=== PATIENT | male | born 1940 | race Caucasian/White ===

== ENCOUNTER 2023-02-28 14:17 | Inpatient (IN) | payer MEDICARE, OTHER, SELFPAY ==
[2023-02-28] VITALS (62 sets, daily range): BP systolic 80–180; BP diastolic 50–112; PULSE 54–98; RESP 5–49; TEMP 36.6–37; O2SAT 83–100; BMI 27.4; BMI 25.7
--- NOTE | 2023-02-28 14:22 | ECG_ITS ---
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
--- NOTE | 2023-02-28 14:35 | ED.SOB1 ---
Documented by User: MIRNA Faulkner 02/28/23 17:12 HPI - SOB/Dyspnea General Chief Complaint: Shortness of Breath/Dyspnea Stated Complaint: RESP DISTRESS Time Seen by Provider: 02/28/23 14:21 Source: patient Mode of arrival: ambulance History of Present Illness HPI Narrative: patient is an 82-year-old male who presents to the emergency department for the evaluation of increasing shortness of breath over the last several days. Patient has a history of chronic obstructive pulmonary disease. On EMS arrival to the home today, patient's face and hands were blue, he was sixty-five percent on room air. He denies chest pain, he has had no fevers or vomiting. He denies peripheral edema. He does not wear home oxygen and EMS states he refuses CPAP. Nonrebreather was applied by EMS and the patient was brought to the Emergency Room with improved oxygen saturation Related Data Home Medications Medication Instructions Recorded Confirmed lisinopril 40 mg tablet 40 mg PO DAILY 02/28/23 02/28/23 metoprolol succinate 25 mg 25 mg PO DAILY 02/28/23 02/28/23 tablet,extended release 24 hr Allergies Allergy/AdvReac Type Severity Reaction Status Date / Time No Known Drug Allergies Allergy Verified 02/28/23 14:41 Review of Systems ROS Constitutional Denies: fever or chills Ears, nose, mouth, and throat Denies: throat pain Cardiovascular Denies: chest pain Respiratory Reports: shortness of breath and cough Gastrointestinal Denies: nausea or vomiting Musculoskeletal Denies: back pain Integumentary/Breast Denies: rash Allergic/Immunologic Denies: hives [facility] Medical History (Updated 02/28/23 @ 22:14 by Coy Cantu MD) Social History Smoking status: Current every day smoker Exam Narrative Exam Narrative: Gen.: Awake, alert, moderate respiratory distress Head: Normocephalic, atraumatic ENT: Moist mucous membranes Respiratory: moderate respiratory distress with decreased lung sounds and expiratory wheezing globally Cardio: Regular rate and rhythm Gastrointestinal: Abdomen is soft, nondistended and nontender to palpation Extremities: Moves extremities equally, no peripheral edema Psych: Normal mood and affect Neuro: No focal neuro deficit Skin: Warm, dry, intact Constitutional Vital Signs - 24 hr 02/28/23 14:11 02/28/23 14:38 02/28/23 14:40 Temperature 97.8 F Pulse Rate 86 Pulse Rate [Monitor] 97 H Respiratory Rate 42 H 40 H Blood Pressure Blood Pressure [Left Arm] 167/103 H Pulse Oximetry 94 L 98 Oxygen Delivery Method Nasal Cannula Nasal Cannula Oxygen Delivery Flow Rate 4 4 Fraction of Inspired Oxygen 02/28/23 14:10 02/28/23 14:11 02/28/23 14:12 Temperature Pulse Rate 91 H Pulse Rate [Monitor] Respiratory Rate 39 H 49 H Blood Pressure 180/103 H Blood Pressure [Left Arm] Pulse Oximetry 98 97 96 Oxygen Delivery Method Oxygen Delivery Flow Rate Fraction of Inspired Oxygen 02/28/23 14:13 02/28/23 14:15 02/28/23 16:26 Temperature Pulse Rate 78 88 Pulse Rate [Monitor] Respiratory Rate 32 H 36 H Blood Pressure 167/103 H 155/95 H Blood Pressure [Left Arm] Pulse Oximetry 93 L 96 Oxygen Delivery Method Vapotherm Oxygen Delivery Flow Rate 40 Fraction of Inspired Oxygen 60 02/28/23 14:15 02/28/23 16:32 02/28/23 17:26 Temperature Pulse Rate 88 94 H 90 Pulse Rate [Monitor] Respiratory Rate 31 H 19 23 Blood Pressure 155/95 H 144/112 H 156/96 H Blood Pressure [Left Arm] Pulse Oximetry 97 95 92 L Oxygen Delivery Method Oxygen Delivery Flow Rate Fraction of Inspired Oxygen 02/28/23 17:31 Temperature Pulse Rate 95 H Pulse Rate [Monitor] Respiratory Rate 24 Blood Pressure 160/100 H Blood Pressure [Left Arm] Pulse Oximetry 91 L Oxygen Delivery Method Oxygen Delivery Flow Rate Fraction of Inspired Oxygen Course Vital Signs Vital signs: Vital Signs Pulse Oximetry 98 02/28/23 14:10 Temperature 98 F 02/28/23 23:07 Pulse Rate 56 L 02/28/23 23:07 Respiratory Rate 24 02/28/23 19:43 Blood Pressure 87/53 L 02/28/23 23:07 Pulse Oximetry 98 02/28/23 23:07 Oxygen Delivery Method Mechanical Ventilator 02/28/23 23:07 Oxygen Delivery Flow Rate 40 02/28/23 19:38 Fraction of Inspired Oxygen 40 02/28/23 20:25 MDM - SOB/Dyspnea MDM Narrative Medical decision making narrative: patient was switched from nonrebreather from EMS to oxygen by nasal cannula in the Emergency Room, he had improvement of oxygen saturation although he did remain borderline hypoxic. Pulse oximetry with poor waveform, he was switched to an ear probe. Lab studies show hyponatremia, low chloride, elevated troponin and elevated BNP. Patient with stable creatinine, unremarkable chest x-ray. He has no complaints of chest pain, no EKG changes. I discussed the case with Dr. Paulino, troponin and sodium levels were repeated and troponin has increased only slightly, no change in sodium. Patient given gentle IV fluids and admitted for further evaluation and treatment to ICU for acute respiratory distress, chronic obstructive pulmonary disease exacerbation and hypoxemia. He was placed on Vapotherm prior to admission for comfort. He is resting comfortably with significantly improved respiratory status at time of admission. Patient reevaluated by attending physician prior to admission. Medical Records Attestation: I reviewed the patient's medical records. Lab Data Attestation: I reviewed the patient's lab results. Labs: Lab Results 02/28/23 02/28/23 02/28/23 Range/Units 13:32 14:15 16:20 WBC 7.3 (4.0-11.0) 10^3/uL RBC 5.23 (4.70-6.10) 10^6/uL Hgb 17.0 (14.0-18.0) g/dL Hct 50.3 (42.0-54.0) % MCV 96.2 H (80.0-94.0) fL MCH 32.5 (25.9-34.0) pg MCHC 33.8 (29.9-35.2) g/dL RDW 12.1 (11.0-15.0) % Plt Count 186 (150-450) 10^3/uL MPV 8.6 L (9.5-13.5) fL Seg Neuts % (Manual) 91.0 Lymphocytes % (Manual) 5.0 L (20.5-60.0) % Monocytes % (Manual) 4.0 (1.7-12.0) % Eosinophils % (Manual) 0.0 L (0.9-7.0) % Basophils % (Manual) 0.0 L (0.2-2.0) % Neutrophils # (Manual) 6.64 H (1.4-6.5) 10^3/uL Lymphocytes # (Manual) 0.36 L (1.20-3.80) 10^3/uL Monocytes # (Manual) 0.29 L (0.30-0.80) 10^3/uL Eosinophils # (Manual) 0.00 (0.00-0.70) 10^3/uL Basophils # (Manual) 0.00 (0.00-0.10) 10^3/uL PT 10.9 (9.0-11.6) sec INR 1.03 APTT 35.6 (22.3-36.2) sec Sodium 112 L* 111 L* (136-145) mmol/L Potassium 5.6 H (3.5-5.1) mmol/L Chloride 77 L* (98-107) mmol/L Carbon Dioxide 32.3 H (21.0-32.0) mmol/L Anion Gap 8.3 BUN 24.0 H (7.0-18.0) mg/dL Creatinine 1.23 (0.70-1.30) mg/dL Est GFR ( Amer) >60 (>=60) Est GFR (Non-Af Amer) 56 L (>=60) BUN/Creatinine Ratio 19.5 Glucose 111 H (74-106) mg/dL Calcium 8.6 (8.5-10.1) mg/dL Total Bilirubin 0.6 (0.2-1.0) mg/dL AST 46 H (15-37) U/L ALT 53 (16-63) U/L Alkaline Phosphatase 94 (46-116) U/L Troponin I High Sens 162.7 H* 172.7 H* (4.0-76.1) pg/mL NT-Pro-B Natriuret Pep 5785.0 H* (<=1800.0) pg/mL Total Protein 7.0 (6.4-8.2) g/dL Albumin 3.6 (3.4-5.0) g/dL Globulin 3.4 g/dL Albumin/Globulin Ratio 1.1 SARS-CoV-2 (PCR) Negative (NEGATIVE) Imaging Data Chest x-ray: Attestation: I have reviewed the pertinent imaging results. ECG Data Attestation: I personally reviewed and interpreted this ECG as follows: (normal sinus rhythm at a rate of ninety-one, incomplete right bundle-branch block, no acute ST elevation. Artifact noted. EKG reviewed by attending physician.) Discharge Plan Discharge Chief Complaint: Shortness of Breath/Dyspnea Clinical Impression: Elevated troponin, Hypoxia, Acute respiratory distress, COPD exacerbation Patient Disposition: Admitted As Inpatient Time of Disposition Decision: 17:09 Condition: Fair Documented by User: Rodrigo Zhao MD 02/28/23 23:11 HPI - SOB/Dyspnea General Chief Complaint: Shortness of Breath/Dyspnea Stated Complaint: RESP DISTRESS Time Seen by Provider: 02/28/23 14:21 Related Data Home Medications Medication Instructions Recorded Confirmed lisinopril 40 mg tablet 40 mg PO DAILY 02/28/23 02/28/23 metoprolol succinate 25 mg 25 mg PO DAILY 02/28/23 02/28/23 tablet,extended release 24 hr Allergies Allergy/AdvReac Type Severity Reaction Status Date / Time No Known Drug Allergies Allergy Verified 02/28/23 14:41 [facility] Medical History (Updated 02/28/23 @ 22:14 by Coy Cantu MD) Social History Smoking status: Current every day smoker Exam Constitutional Vital Signs - 24 hr 02/28/23 14:11 02/28/23 14:38 02/28/23 14:40 Temperature 97.8 F Pulse Rate 86 Pulse Rate [Monitor] 97 H Respiratory Rate 42 H 40 H Blood Pressure Blood Pressure [Left Arm] 167/103 H Pulse Oximetry 94 L 98 Oxygen Delivery Method Nasal Cannula Nasal Cannula Oxygen Delivery Flow Rate 4 4 Fraction of Inspired Oxygen 02/28/23 14:10 02/28/23 14:11 02/28/23 14:12 Temperature Pulse Rate 91 H Pulse Rate [Monitor] Respiratory Rate 39 H 49 H Blood Pressure 180/103 H Blood Pressure [Left Arm] Pulse Oximetry 98 97 96 Oxygen Delivery Method Oxygen Delivery Flow Rate Fraction of Inspired Oxygen 02/28/23 14:13 02/28/23 14:15 02/28/23 16:26 Temperature Pulse Rate 78 88 Pulse Rate [Monitor] Respiratory Rate 32 H 36 H Blood Pressure 167/103 H 155/95 H Blood Pressure [Left Arm] Pulse Oximetry 93 L 96 Oxygen Delivery Method Vapotherm Oxygen Delivery Flow Rate 40 Fraction of Inspired Oxygen 60 02/28/23 14:15 02/28/23 16:32 02/28/23 17:26 Temperature Pulse Rate 88 94 H 90 Pulse Rate [Monitor] Respiratory Rate 31 H 19 23 Blood Pressure 155/95 H 144/112 H 156/96 H Blood Pressure [Left Arm] Pulse Oximetry 97 95 92 L Oxygen Delivery Method Oxygen Delivery Flow Rate Fraction of Inspired Oxygen 02/28/23 17:31 Temperature Pulse Rate 95 H Pulse Rate [Monitor] Respiratory Rate 24 Blood Pressure 160/100 H Blood Pressure [Left Arm] Pulse Oximetry 91 L Oxygen Delivery Method Oxygen Delivery Flow Rate Fraction of Inspired Oxygen Course Vital Signs Vital signs: Vital Signs Pulse Oximetry 98 02/28/23 14:10 Temperature 98 F 02/28/23 23:07 Pulse Rate 56 L 02/28/23 23:07 Respiratory Rate 24 02/28/23 19:43 Blood Pressure 87/53 L 02/28/23 23:07 Pulse Oximetry 98 02/28/23 23:07 Oxygen Delivery Method Mechanical Ventilator 02/28/23 23:07 Oxygen Delivery Flow Rate 40 02/28/23 19:38 Fraction of Inspired Oxygen 40 02/28/23 20:25 MDM - SOB/Dyspnea Lab Data Labs: Lab Results 02/28/23 02/28/23 02/28/23 Range/Units 13:32 14:15 16:20 WBC 7.3 (4.0-11.0) 10^3/uL RBC 5.23 (4.70-6.10) 10^6/uL Hgb 17.0 (14.0-18.0) g/dL Hct 50.3 (42.0-54.0) % MCV 96.2 H (80.0-94.0) fL MCH 32.5 (25.9-34.0) pg MCHC 33.8 (29.9-35.2) g/dL RDW 12.1 (11.0-15.0) % Plt Count 186 (150-450) 10^3/uL MPV 8.6 L (9.5-13.5) fL Seg Neuts % (Manual) 91.0 Lymphocytes % (Manual) 5.0 L (20.5-60.0) % Monocytes % (Manual) 4.0 (1.7-12.0) % Eosinophils % (Manual) 0.0 L (0.9-7.0) % Basophils % (Manual) 0.0 L (0.2-2.0) % Neutrophils # (Manual) 6.64 H (1.4-6.5) 10^3/uL Lymphocytes # (Manual) 0.36 L (1.20-3.80) 10^3/uL Monocytes # (Manual) 0.29 L (0.30-0.80) 10^3/uL Eosinophils # (Manual) 0.00 (0.00-0.70) 10^3/uL Basophils # (Manual) 0.00 (0.00-0.10) 10^3/uL PT 10.9 (9.0-11.6) sec INR 1.03 APTT 35.6 (22.3-36.2) sec Sodium 112 L* 111 L* (136-145) mmol/L Potassium 5.6 H (3.5-5.1) mmol/L Chloride 77 L* (98-107) mmol/L Carbon Dioxide 32.3 H (21.0-32.0) mmol/L Anion Gap 8.3 BUN 24.0 H (7.0-18.0) mg/dL Creatinine 1.23 (0.70-1.30) mg/dL Est GFR ( Amer) >60 (>=60) Est GFR (Non-Af Amer) 56 L (>=60) BUN/Creatinine Ratio 19.5 Glucose 111 H (74-106) mg/dL Calcium 8.6 (8.5-10.1) mg/dL Total Bilirubin 0.6 (0.2-1.0) mg/dL AST 46 H (15-37) U/L ALT 53 (16-63) U/L Alkaline Phosphatase 94 (46-116) U/L Troponin I High Sens 162.7 H* 172.7 H* (4.0-76.1) pg/mL NT-Pro-B Natriuret Pep 5785.0 H* (<=1800.0) pg/mL Total Protein 7.0 (6.4-8.2) g/dL Albumin 3.6 (3.4-5.0) g/dL Globulin 3.4 g/dL Albumin/Globulin Ratio 1.1 SARS-CoV-2 (PCR) Negative (NEGATIVE) Discharge Plan Discharge Chief Complaint: Shortness of Breath/Dyspnea Clinical Impression: Elevated troponin, Hypoxia, Acute respiratory distress, COPD exacerbation Patient Disposition: Admitted As Inpatient Time of Disposition Decision: 17:09 Condition: Fair Procedures ED Procedure Instructions Procedures Procedures: contacted by hospitalist Dr Cantu to intubate patient . Patient in the ICU and is now unresponsive. Patient has bipap in place . patient has a gag reflex. given Ativan 1mg and Etomindate 15 mg IVP. Successful intubation on 2nd attempt with 7.5 ET tube. After I removed the blade I noticed blood in his mouth and realized he was biting his tongue and lip. Bite block placed by RT. Tube secured. xray confirms tube placement.
[2023-02-28] MEDS: IPRATROPIUM/ALBUTEROL SULFATE 3 ML AMPUL.NEB IH ×2 (14:38→22:15)
[2023-02-28] MEDS: ALBUTEROL SULFATE 2.5 MG/3 ML VIAL NEB (14:38)
--- NOTE | 2023-02-28 14:45 | XR_ITS ---
[address] [address] Patient Name: ELIDA JERONIMO MRN: [id number] date: 1940 Sex: M Assigned Patient Location: ED.MAIN Current Patient Location: ED.MAIN Accession/Order Number: [id number] Exam Date: 02/28/2023 14:40 Report Date: 02/28/2023 15:11 At the request of: JUMA SHEEHAN Procedure: XR chest 1V EXAMINATION: XR chest 1V HISTORY: Shortness of breath COMPARISON: Chest x-rays 10/22/2022 TECHNIQUE: Portable chest FINDINGS: The lung parenchyma is free of consolidation or infiltrate. No pneumothorax or pleural effusion. The cardiac, mediastinal and hilar contours are normal. The visualized osseous structures exhibit no gross abnormality. IMPRESSION: No acute cardiopulmonary abnormality. Electronically authenticated by: BRIAN JAMIL Date: 02/28/2023 15:11
[2023-02-28] MEDS: METHYLPREDNISOLONE SOD SUCC PF 125 MG/2 ML VIAL IVP (14:53)
[2023-02-28 14:57] LABS: Hematocrit 50.3 % (42.0-54.0); Mean Corpuscular HGB Conc 33.8 g/dL (29.9-35.2); Mean Corpuscular Hemoglobin 32.5 pg (25.9-34.0); Mean Corpuscular Volume 96.2 fL (80.0-94.0); Mean Platelet Volume 8.6 fL (9.5-13.5); Platelet Count 186 10^3/uL (150-450); Red Blood Count 5.23 10^6/uL (4.70-6.10); Red Cell Distribution Width 12.1 % (11.0-15.0); White Blood Count 7.3 10^3/uL (4.0-11.0)
[2023-02-28 15:19] LABS: Alanine Aminotransferase 53 U/L (16-63); Albumin Globulin Ratio 1.1; Albumin Level 3.6 g/dL (3.4-5.0); Alkaline Phosphatase 94 U/L (46-116); Anion Gap 8.3; Aspartate Amino Transferase 46 U/L (15-37); BUN Creatinine Ratio 19.5; Bilirubin Total 0.6 mg/dL (0.2-1.0); Calcium 8.6 mg/dL (8.5-10.1); Carbon Dioxide 32.3 mmol/L (21.0-32.0); Estimated GFR (African America >60 (>=60); Estimated GFR (Non-African Ame 56 (>=60); Globulin 3.4 g/dL; Glucose 111 mg/dL (74-106); Potassium 5.6 mmol/L (3.5-5.1)
[2023-02-28 15:21] LABS: INR 1.03; Partial Thromboplastin Time 35.6 sec (22.3-36.2); Prothrombin Time 10.9 sec (9.0-11.6)
[2023-02-28 15:23] LABS: Chloride 77 mmol/L (98-107); Sodium 112 mmol/L (136-145); Troponin I High Sensitivity 162.7 pg/mL (4.0-76.1)
[2023-02-28 15:26] LABS: Lymphocytes Absolute Manual 0.36 10^3/uL (1.20-3.80); Monocytes Absolute Manual 0.29 10^3/uL (0.30-0.80); Segmented Neut Absolute Manual 6.64 10^3/uL (1.4-6.5)
[2023-02-28 15:33] LABS: SARS-CoV-2 Ag NEGATIVE (NEGATIVE)
[2023-02-28] MEDS: 0.9 % SODIUM CHLORIDE 1,000 ML 500 ML IV ×2 (15:42→20:11)
--- NOTE | 2023-02-28 16:29 | RESP.RT ---
Vapotherm s/u due to pt 81-87% on 4 lpm NC
[2023-02-28 16:56] LABS: Sodium 111 mmol/L (136-145); Troponin I High Sensitivity 172.7 pg/mL (4.0-76.1)
--- NOTE | 2023-02-28 17:14 | CA_ITS ---
Patient: ELIDA JERONIMO Exam Date: 03/03/2023 : 1940 Gender:M Ordering : SHAIKH Spring OWENS . Admission #: [id number] Family : DR Daren Arce . Order #: [id number] CLICK HERE TO VIEW EXAM ECHOCARDIOGRAM REPORT PROCEDURE: CA ECHO DOPPLER COMPLETE INDICATIONS: SOB, Respiratory failure COMPARISON: None. DESCRIPTION: COMPLETE ECHOCARDIOGRAM Real-time transthoracic echocardiography with 2D, M-mode, spectral and color flow Doppler performed. QUALITY: Technical quality was adequate. LEFT VENTRICLE: Normal chamber size. Borderline left ventricular hypertrophy. LV EF: Global left ventricular systolic function is normal. Calculated left ventricular ejection fraction is 61% DIASTOLIC: Grade I diastolic dysfunction. ATRIAL SEPTUM: Inadequately seen. LEFT ATRIUM: Normal chamber size. RIGHT ATRIUM: Moderate dilatation. RIGHT VENTRICLE: Mild dilatation. Right ventricular systolic function appears reduced. TRICUSPID VALVE: Normal mobility and thickness. No stenosis with mild regurgitation. Severe pulmonary hypertension. RVSP 62mmHg MITRAL VALVE: Normal mobility and thickness. No evidence of mitral valve stenosis. There is no mitral annular calcification. Trivial mitral regurgitation. AORTIC VALVE: Grossly normal. Normal leaflet mobility. No evidence of aortic valve stenosis. No aortic regurgitation. AORTIC ROOT: Normal diameter and appearance. PULMONIC VALVE: Normal thickness and mobility. No stenosis. No regurgitation. PERICARDIUM: No evidence of pericardial effusion. IVC: Collapses with inspirations. Normal size. CONCLUSION: 1. Global left ventricular systolic function is normal; visually estimated ejection fraction 60 to 65%. 2. The right ventricle is mildly dilated with reduced systolic function. 3. The right atrium is moderately dilated. 4. Mild diastolic dysfunction. 5. Mild tricuspid regurgitation. 6. Severe pulmonary hypertension; RVSP 62 mmHg. Adult Echocardiography Procedure Report Left Ventricle LVEDD (3.7 - 5.6 cm): 4.17 cm LVESD (2.2 - 4.0 cm): 3.01 cm LVIVS thickness (0.6 - 1.2 cm): 1.06 cm LVPW thickness (0.5 - 1.0 cm): 1.03 cm LVOT Max Gradient: 7.28 mm[Hg], 6.78 mm[Hg] LVOT Area (cm2): 1.33 m/s Peak Velocity (LVOT): 1.35 m/s, 1.30 m/s Mean Velocity (LVOT): 1.01 m/s LVOT Diameter 2.54 cm Left Ventricular Ejection Fraction: 60.87 % Left Atrium LA Volume Index (2D A2C): 31.94 ml/m2 Left Atrium Systolic Dimension: 3.97 cm Mitral Valve MV E to A Ratio: 0.52 Mitral Valve A-Wave Peak Velocity: 1.44 m/s Mitral Valve E-Wave Peak Velocity: 0.75 m/s Right Ventricle RV Internal Diastolic Dimension: 4.04 cm Aorta AO Root Diam: 2.58 cm Ascending Ao Diam: 3.07 cm Aortic Valve AoV Area (Peak Ang): 4.24 cm2, 4.32 cm2 AoV Area (VTI): 3.61 cm2, 3.66 cm2 Peak Velocity(Antegrade Flow): 1.58 m/s Peak Gradient(Antegrade Flow): 9.98 mm[Hg] Mean Velocity(Antegrade Flow): 1.13 m/s Mean Gradient(Antegrade Flow): 5.69 mm[Hg] Velocity Time Integral: 31.48 cm Tricuspid Valve Peak Velocity (Regurgitant Flow): 1.62 m/s, 1.50 m/s, 3.83 m/s Pulmonic Valve Peak Velocity: 1.07 m/s Peak Gradient: 5.38 mm[Hg], 3.84 mm[Hg] Right Atrium Right Atrium Systolic Pressure: 108.16 ml, 108.16 ml Dictated by: Janet Bailon M.D. on 03/06/2023 at 12:52 Approved by: Janet Bailon M.D. on 03/06/2023 at 12:56
[2023-02-28 19:42] LABS: Allen Test POSITIVE (POSITIVE); Base Excess ABG 5.5 mmol/L (-2.0-2.0); Fractionated Inspired Oxygen 60 %; HCO3 ABG 32.9 mmol/L (22.0-26.0); Liters per Minute 40; Oxygen Saturation ABG 95.7 %; PO2 ABG 90.6 mmHg (80.0-100.0)
[2023-02-28 19:43] LABS: O2 Mode VAPOTHERM; Puncture Site R RADIAL
[2023-02-28 19:44] LABS: ABG PCO2 77.3 mmHg (35.0-45.0); pH ABG 7.238 (7.350-7.450)
[2023-02-28 19:55] LABS: Anion Gap 6.7; BUN Creatinine Ratio 22.7; Calcium 8.4 mg/dL (8.5-10.1); Carbon Dioxide 31.6 mmol/L (21.0-32.0); Estimated GFR (African America >60 (>=60); Estimated GFR (Non-African Ame >60 (>=60); Glucose 117 mg/dL (74-106); Potassium 5.3 mmol/L (3.5-5.1); Thyroid Stimulating Hormone 0.668 uIU/mL (0.358-3.740)
[2023-02-28 20:00] LABS: Chloride 81 mmol/L (98-107); Sodium 114 mmol/L (136-145); Troponin I High Sensitivity 244.9 pg/mL (4.0-76.1)
[2023-02-28] MEDS: 0.9 % SODIUM CHLORIDE 1,000 ML 100 ML IV (20:11)
[2023-02-28] MEDS: CEFTRIAXONE 1,000 MG in 0.9 % SODIUM CHLORIDE 50 ML 1 MG IV (20:45)
[2023-02-28 22:01] LABS: Base Excess ABG 5.7 mmol/L (-2.0-2.0); HCO3 ABG 32.7 mmol/L (22.0-26.0)
[2023-02-28 22:02] LABS: Allen Test POSITIVE (POSITIVE); BIPAP Pressure 16/8; Fractionated Inspired Oxygen 40 %; O2 Mode BIPAP; Oxygen Saturation ABG 96.8 %; Puncture Site L RADIAL; Rate 14
[2023-02-28 22:03] LABS: pH ABG 7.265 (7.350-7.450)
[2023-02-28 22:04] LABS: ABG PCO2 72.2 mmHg (35.0-45.0)
--- NOTE | 2023-02-28 22:11 | P.PN_ITS ---
Progress Note: Subjective Subjective Interval history: I was called to evaluate this patient who been admitted earlier today for COPD exacerbation with CO2 retention. It seems patient become unresponsive in the last half an hour in spite of being on BiPAP. He is barely withdrawing to pain and not responding to verbal stimuli. Repeated blood gas showed pH of 7.26 and PCO2 of 72 (practically unchanged from the previous 1. Patient also has profound hyponatremia with initial sodium level along 111. Current sodium level is 114. Exam Narrative Exam Narrative: Physical Exam: Unresponsive. On BiPAP. Barely withdrawing to pain stimuli., Head - atraumatic, eyes - pupils equal, round, reactive to light, extra ocular movement intact, MMM Neck - supple, thyroid not enlarged, LN not palpated Lungs -coarse breath sounds bilaterally, wheezing, decreased at bases, right greater than left CVS - heart sounds S1, S2, no additional murmurs gallop, regular rate and rhythm Gastrointestinal?abdomen is soft, non-tender, non-distended, no organomegaly, positive bowel sounds Extremities no clubbing, cyanosis or edema Constitutional Vital Signs - 24 hr 02/28/23 14:11 02/28/23 14:38 02/28/23 14:40 Temperature 97.8 F Pulse Rate 86 Pulse Rate [Monitor] 97 H Respiratory Rate 42 H 40 H Blood Pressure Blood Pressure [Left Arm] 167/103 H Pulse Oximetry 94 L 98 Oxygen Delivery Method Nasal Cannula Nasal Cannula Oxygen Delivery Flow Rate 4 4 Fraction of Inspired Oxygen 02/28/23 14:10 02/28/23 14:11 02/28/23 14:12 Temperature Pulse Rate 91 H Pulse Rate [Monitor] Respiratory Rate 39 H 49 H Blood Pressure 180/103 H Blood Pressure [Left Arm] Pulse Oximetry 98 97 96 Oxygen Delivery Method Oxygen Delivery Flow Rate Fraction of Inspired Oxygen 02/28/23 14:13 02/28/23 14:15 02/28/23 16:26 Temperature Pulse Rate 78 88 Pulse Rate [Monitor] Respiratory Rate 32 H 36 H Blood Pressure 167/103 H 155/95 H Blood Pressure [Left Arm] Pulse Oximetry 93 L 96 Oxygen Delivery Method Vapotherm Oxygen Delivery Flow Rate 40 Fraction of Inspired Oxygen 60 02/28/23 14:15 02/28/23 16:32 02/28/23 17:26 Temperature Pulse Rate 88 94 H 90 Pulse Rate [Monitor] Respiratory Rate 31 H 19 23 Blood Pressure 155/95 H 144/112 H 156/96 H Blood Pressure [Left Arm] Pulse Oximetry 97 95 92 L Oxygen Delivery Method Oxygen Delivery Flow Rate Fraction of Inspired Oxygen 02/28/23 17:31 02/28/23 18:28 02/28/23 18:42 Temperature 98.6 F Pulse Rate 95 H 94 H Pulse Rate [Monitor] Respiratory Rate 24 32 H Blood Pressure 160/100 H Blood Pressure [Left Arm] 161/93 H Pulse Oximetry 91 L 90 L 92 L Oxygen Delivery Method Nasal Cannula Nasal Cannula Oxygen Delivery Flow Rate 6 6 Fraction of Inspired Oxygen 02/28/23 19:31 02/28/23 19:36 02/28/23 19:38 Temperature 98.2 F 98.2 F Pulse Rate 94 H 94 H 85 Pulse Rate [Monitor] Respiratory Rate 24 24 Blood Pressure Blood Pressure [Left Arm] 153/112 H 153/112 H Pulse Oximetry 97 97 97 Oxygen Delivery Method Vapotherm Vapotherm Oxygen Delivery Flow Rate 40 40 Fraction of Inspired Oxygen 60 60 02/28/23 19:43 02/28/23 20:25 02/28/23 19:00 Temperature Pulse Rate 76 Pulse Rate [Monitor] Respiratory Rate 24 Blood Pressure Blood Pressure [Left Arm] Pulse Oximetry 100 97 Oxygen Delivery Method Vapotherm Oxygen Delivery Flow Rate 40 Fraction of Inspired Oxygen 40 60 02/28/23 20:25 Temperature Pulse Rate Pulse Rate [Monitor] Respiratory Rate Blood Pressure Blood Pressure [Left Arm] Pulse Oximetry 100 Oxygen Delivery Method BIPAP Oxygen Delivery Flow Rate Fraction of Inspired Oxygen 40 Progress Note: Objective Labs Labs: Short CBC 02/28/23 Range/Units 13:32 WBC 7.3 (4.0-11.0) 10^3/uL Hgb 17.0 (14.0-18.0) g/dL Hct 50.3 (42.0-54.0) % Plt Count 186 (150-450) 10^3/uL BMP 02/28/23 02/28/23 02/28/23 13:32 16:20 18:45 Sodium 112 L* 111 L* 114 L* Potassium 5.6 H 5.3 H Chloride 77 L* 81 L* Carbon Dioxide 32.3 H 31.6 BUN 24.0 H 22.0 H Creatinine 1.23 0.97 Glucose 111 H 117 H Calcium 8.6 8.4 L Liver Function 02/28/23 Range/Units 13:32 Total Bilirubin 0.6 (0.2-1.0) mg/dL AST 46 H (15-37) U/L ALT 53 (16-63) U/L Alkaline Phosphatase 94 (46-116) U/L Albumin 3.6 (3.4-5.0) g/dL Progress Note: A&P Assessment and Plan (1) Acute hypercapnic respiratory failure: Assessment and Plan: Patient did not respond to treatment with BiPAP. His mental status deteriorated to the point that he is barely responding to pain stimuli. I requested evaluation by ED physician with a goal to intubate the patient. Continue with breathing treatments. Continue with steroids. (2) COPD (chronic obstructive pulmonary disease): Assessment and Plan: Continue inhaled and systemic steroids and bronchodilators (3) Hyponatremia: Assessment and Plan: I am going to change the IV fluid rate to 50 cc an hour of normal saline. I am going to request sodium levels to be checked every 4 hours. Goal of correction 6-8 mEq / 24 hours Telemedicine Attestation Telemedicine Attestation I conducted this encounter from [place][] via secure live, [id number] video conference with the patient, located at [facility] with Hypercapnic respiratory failure[]. Prior to the interview, the risks and benefits of telemedicine were discussed with the patient and verbal consent was obtained.
[2023-02-28] MEDS: LORAZEPAM 2 MG/ML 1 ML VIAL 1 MG IV (22:22)
[2023-02-28] MEDS: ETOMIDATE 20 MG/10 ML VIAL 15 MG IVP (22:27)
[2023-02-28] MEDS: LORAZEPAM 2 MG/ML 1 ML VIAL IV (22:35)
--- NOTE | 2023-02-28 22:47 | XR_ITS ---
[address] [address] Patient Name: ELIDA JERONIMO MRN: [id number] date: 1940 Sex: M Assigned Patient Location: ICU Current Patient Location: ICU Accession/Order Number: [id number] Exam Date: 02/28/2023 22:40 Report Date: 02/28/2023 22:59 At the request of: TOO CORONA Procedure: XR chest 1V EXAM: XR chest 1V HISTORY: Intubation COMPARISON: Chest x-ray 2:45 PM TECHNIQUE: Portable chest FINDINGS: IMPRESSION: Endotracheal tube tip is approximately 58.4 mm proximal to the vivien. The lung parenchyma is free of consolidation or infiltrate. No pneumothorax or pleural effusion. The heart is not enlarged. No visualized osseous abnormality. Electronically authenticated by: BRIAN JAMIL Date: 02/28/2023 22:59
[2023-02-28] MEDS: DEXMEDETOMIDINE HCL 200 MCG in 0.9 % SODIUM CHLORIDE 50 ML 9.971 MCG IV (23:18)
[2023-02-28 23:23] LABS: Anion Gap 5.9; BUN Creatinine Ratio 20.8; Calcium 8.1 mg/dL (8.5-10.1); Carbon Dioxide 33.7 mmol/L (21.0-32.0); Estimated GFR (African America >60 (>=60); Estimated GFR (Non-African Ame >60 (>=60); Glucose 116 mg/dL (74-106); Potassium 5.6 mmol/L (3.5-5.1)
[2023-02-28] MEDS: METHYLPREDNISOLONE SOD SUCC PF 40 MG/ML VIAL IVP (23:40)
[2023-02-28] MEDS: AZITHROMYCIN 500 MG in 0.9 % SODIUM CHLORIDE 250 ML 250 MG IV (23:49)
[2023-02-28 23:53] LABS: Chloride 83 mmol/L (98-107); Sodium 117 mmol/L (136-145); Troponin I High Sensitivity 321.7 pg/mL (4.0-76.1)
[2023-03-01] VITALS (105 sets, daily range): BP systolic 85–129; BP diastolic 16–81; PULSE 57–96; RESP 14–18; TEMP 36.6–36.9; O2SAT 91–100
--- NOTE | 2023-03-01 00:24 | P.PN_ITS ---
Progress Note: Subjective Subjective Interval history: Patient is now intubated Sodium level comes at 17?corrected too fast Exam Constitutional Vital Signs - 24 hr 02/28/23 14:11 02/28/23 14:38 02/28/23 14:40 Temperature 97.8 F Pulse Rate 86 Pulse Rate [Monitor] 97 H Respiratory Rate 42 H 40 H Blood Pressure Blood Pressure [Left Arm] 167/103 H Pulse Oximetry 94 L 98 Oxygen Delivery Method Nasal Cannula Nasal Cannula Oxygen Delivery Flow Rate 4 4 Fraction of Inspired Oxygen 02/28/23 14:10 02/28/23 14:11 02/28/23 14:12 Temperature Pulse Rate 91 H Pulse Rate [Monitor] Respiratory Rate 39 H 49 H Blood Pressure 180/103 H Blood Pressure [Left Arm] Pulse Oximetry 98 97 96 Oxygen Delivery Method Oxygen Delivery Flow Rate Fraction of Inspired Oxygen 02/28/23 14:13 02/28/23 14:15 02/28/23 16:26 Temperature Pulse Rate 78 88 Pulse Rate [Monitor] Respiratory Rate 32 H 36 H Blood Pressure 167/103 H 155/95 H Blood Pressure [Left Arm] Pulse Oximetry 93 L 96 Oxygen Delivery Method Vapotherm Oxygen Delivery Flow Rate 40 Fraction of Inspired Oxygen 60 02/28/23 14:15 02/28/23 16:32 02/28/23 17:26 Temperature Pulse Rate 88 94 H 90 Pulse Rate [Monitor] Respiratory Rate 31 H 19 23 Blood Pressure 155/95 H 144/112 H 156/96 H Blood Pressure [Left Arm] Pulse Oximetry 97 95 92 L Oxygen Delivery Method Oxygen Delivery Flow Rate Fraction of Inspired Oxygen 02/28/23 17:31 02/28/23 18:28 02/28/23 18:42 Temperature 98.6 F Pulse Rate 95 H 94 H Pulse Rate [Monitor] Respiratory Rate 24 32 H Blood Pressure 160/100 H Blood Pressure [Left Arm] 161/93 H Pulse Oximetry 91 L 90 L 92 L Oxygen Delivery Method Nasal Cannula Nasal Cannula Oxygen Delivery Flow Rate 6 6 Fraction of Inspired Oxygen 02/28/23 19:31 02/28/23 19:36 02/28/23 19:38 Temperature 98.2 F 98.2 F Pulse Rate 94 H 94 H 85 Pulse Rate [Monitor] Respiratory Rate 24 24 Blood Pressure Blood Pressure [Left Arm] 153/112 H 153/112 H Pulse Oximetry 97 97 97 Oxygen Delivery Method Vapotherm Vapotherm Oxygen Delivery Flow Rate 40 40 Fraction of Inspired Oxygen 60 60 02/28/23 19:43 02/28/23 20:25 02/28/23 19:00 Temperature Pulse Rate 76 Pulse Rate [Monitor] Respiratory Rate 24 Blood Pressure Blood Pressure [Left Arm] Pulse Oximetry 100 97 Oxygen Delivery Method Vapotherm Oxygen Delivery Flow Rate 40 Fraction of Inspired Oxygen 40 60 02/28/23 20:25 02/28/23 23:07 02/28/23 23:25 Temperature 98 F Pulse Rate 56 L 57 L Pulse Rate [Monitor] Respiratory Rate 16 Blood Pressure Blood Pressure [Left Arm] 87/53 L Pulse Oximetry 100 98 97 Oxygen Delivery Method BIPAP Mechanical Ventilator Oxygen Delivery Flow Rate Fraction of Inspired Oxygen 40 40 03/01/23 00:13 03/01/23 00:19 02/28/23 17:31 Temperature 98 F Pulse Rate 66 88 Pulse Rate [Monitor] 64 Respiratory Rate 14 14 22 Blood Pressure 160/100 H Blood Pressure [Left Arm] 97/54 L Pulse Oximetry 98 94 L Oxygen Delivery Method Mechanical Ventilator Oxygen Delivery Flow Rate Fraction of Inspired Oxygen 40 02/28/23 18:00 02/28/23 18:08 02/28/23 18:10 Temperature Pulse Rate 95 H 91 H 90 Pulse Rate [Monitor] Respiratory Rate 27 H 46 H 42 H Blood Pressure 166/96 H Blood Pressure [Left Arm] Pulse Oximetry Oxygen Delivery Method Oxygen Delivery Flow Rate Fraction of Inspired Oxygen 02/28/23 18:19 02/28/23 18:19 02/28/23 18:30 Temperature Pulse Rate 88 94 H 91 H Pulse Rate [Monitor] Respiratory Rate 33 H Blood Pressure 152/87 H 160/97 H Blood Pressure [Left Arm] Pulse Oximetry 92 L 83 L Oxygen Delivery Method Oxygen Delivery Flow Rate Fraction of Inspired Oxygen 02/28/23 18:37 02/28/23 18:46 02/28/23 18:50 Temperature Pulse Rate 92 H 98 H 91 H Pulse Rate [Monitor] Respiratory Rate Blood Pressure 161/93 H Blood Pressure [Left Arm] Pulse Oximetry 92 L 95 Oxygen Delivery Method Oxygen Delivery Flow Rate Fraction of Inspired Oxygen 02/28/23 18:51 02/28/23 18:51 02/28/23 19:01 Temperature Pulse Rate 94 H 81 92 H Pulse Rate [Monitor] Respiratory Rate 48 H 32 H 31 H Blood Pressure 169/96 H 163/101 H Blood Pressure [Left Arm] Pulse Oximetry 97 96 97 Oxygen Delivery Method Oxygen Delivery Flow Rate Fraction of Inspired Oxygen 02/28/23 19:15 02/28/23 19:32 02/28/23 19:46 Temperature Pulse Rate 97 H 93 H 87 Pulse Rate [Monitor] Respiratory Rate 30 H 24 27 H Blood Pressure 160/100 H 153/112 H 151/106 H Blood Pressure [Left Arm] Pulse Oximetry 98 98 97 Oxygen Delivery Method Oxygen Delivery Flow Rate Fraction of Inspired Oxygen 02/28/23 20:00 02/28/23 20:16 02/28/23 20:30 Temperature Pulse Rate 92 H 64 85 Pulse Rate [Monitor] Respiratory Rate 29 H 18 5 L Blood Pressure 142/91 H 152/89 H 142/90 H Blood Pressure [Left Arm] Pulse Oximetry 96 100 96 Oxygen Delivery Method Oxygen Delivery Flow Rate Fraction of Inspired Oxygen 02/28/23 20:45 02/28/23 21:00 02/28/23 21:15 Temperature Pulse Rate 60 79 55 L Pulse Rate [Monitor] Respiratory Rate 5 L 9 L 7 L Blood Pressure 109/73 91/53 L 91/66 Blood Pressure [Left Arm] Pulse Oximetry 94 L 92 L 94 L Oxygen Delivery Method Oxygen Delivery Flow Rate Fraction of Inspired Oxygen 02/28/23 21:30 02/28/23 21:35 02/28/23 22:00 Temperature Pulse Rate 54 L 55 L 57 L Pulse Rate [Monitor] Respiratory Rate 7 L 16 12 Blood Pressure 81/51 L 87/50 L 95/58 L Blood Pressure [Left Arm] Pulse Oximetry 94 L 94 L 93 L Oxygen Delivery Method Oxygen Delivery Flow Rate Fraction of Inspired Oxygen 02/28/23 22:23 02/28/23 22:25 02/28/23 22:29 Temperature Pulse Rate 86 90 90 Pulse Rate [Monitor] Respiratory Rate 16 24 12 Blood Pressure 93/55 L 100/62 131/82 H Blood Pressure [Left Arm] Pulse Oximetry 90 L 94 L 96 Oxygen Delivery Method Oxygen Delivery Flow Rate Fraction of Inspired Oxygen 02/28/23 22:30 02/28/23 22:35 02/28/23 22:40 Temperature Pulse Rate 93 H 64 87 Pulse Rate [Monitor] Respiratory Rate 26 H 21 20 Blood Pressure 118/78 130/74 H 119/71 Blood Pressure [Left Arm] Pulse Oximetry 94 L Oxygen Delivery Method Oxygen Delivery Flow Rate Fraction of Inspired Oxygen 02/28/23 22:45 02/28/23 22:50 02/28/23 22:55 Temperature Pulse Rate 94 H 82 58 L Pulse Rate [Monitor] Respiratory Rate 25 H Blood Pressure 113/71 125/75 H 119/72 Blood Pressure [Left Arm] Pulse Oximetry 100 100 Oxygen Delivery Method Oxygen Delivery Flow Rate Fraction of Inspired Oxygen 02/28/23 23:00 02/28/23 23:05 02/28/23 23:10 Temperature Pulse Rate 57 L 62 55 L Pulse Rate [Monitor] Respiratory Rate Blood Pressure 100/59 L 87/53 L 88/56 L Blood Pressure [Left Arm] Pulse Oximetry 100 99 98 Oxygen Delivery Method Oxygen Delivery Flow Rate Fraction of Inspired Oxygen 02/28/23 23:15 02/28/23 23:20 02/28/23 23:25 Temperature Pulse Rate 58 L 58 L 58 L Pulse Rate [Monitor] Respiratory Rate Blood Pressure 88/58 L 80/53 L 92/53 L Blood Pressure [Left Arm] Pulse Oximetry 97 97 97 Oxygen Delivery Method Oxygen Delivery Flow Rate Fraction of Inspired Oxygen 02/28/23 23:30 02/28/23 23:35 02/28/23 23:40 Temperature Pulse Rate 68 58 L 72 Pulse Rate [Monitor] Respiratory Rate Blood Pressure 80/51 L 85/52 L 81/58 L Blood Pressure [Left Arm] Pulse Oximetry 97 97 98 Oxygen Delivery Method Oxygen Delivery Flow Rate Fraction of Inspired Oxygen 02/28/23 23:45 02/28/23 23:50 02/28/23 23:55 Temperature Pulse Rate 58 L 60 72 Pulse Rate [Monitor] Respiratory Rate Blood Pressure 88/54 L 84/51 L 83/50 L Blood Pressure [Left Arm] Pulse Oximetry 99 98 98 Oxygen Delivery Method Oxygen Delivery Flow Rate Fraction of Inspired Oxygen 03/01/23 00:00 03/01/23 00:15 Temperature Pulse Rate 73 67 Pulse Rate [Monitor] Respiratory Rate Blood Pressure 86/55 L 97/54 L Blood Pressure [Left Arm] Pulse Oximetry 98 98 Oxygen Delivery Method Oxygen Delivery Flow Rate Fraction of Inspired Oxygen Progress Note: Objective Labs Labs: Short CBC 02/28/23 Range/Units 13:32 WBC 7.3 (4.0-11.0) 10^3/uL Hgb 17.0 (14.0-18.0) g/dL Hct 50.3 (42.0-54.0) % Plt Count 186 (150-450) 10^3/uL BMP 02/28/23 02/28/23 02/28/23 13:32 16:20 18:45 Sodium 112 L* 111 L* 114 L* Potassium 5.6 H 5.3 H Chloride 77 L* 81 L* Carbon Dioxide 32.3 H 31.6 BUN 24.0 H 22.0 H Creatinine 1.23 0.97 Glucose 111 H 117 H Calcium 8.6 8.4 L 02/28/23 23:00 Sodium 117 L* Potassium 5.6 H Chloride 83 L* Carbon Dioxide 33.7 H BUN 22.0 H Creatinine 1.06 Glucose 116 H Calcium 8.1 L Liver Function 02/28/23 Range/Units 13:32 Total Bilirubin 0.6 (0.2-1.0) mg/dL AST 46 H (15-37) U/L ALT 53 (16-63) U/L Alkaline Phosphatase 94 (46-116) U/L Albumin 3.6 (3.4-5.0) g/dL Progress Note: A&P Assessment and Plan (1) Acute hypercapnic respiratory failure: Assessment and Plan: Patient now intubated. Ongoing to check blood gas (2) COPD (chronic obstructive pulmonary disease): Assessment and Plan: Continue with bronchodilators and inhaled steroids (3) Hyponatremia: Assessment and Plan: I am going to change IV fluids to D5W, ongoing and desmopressin. Continue close monitoring of sodium levels Telemedicine Attestation Telemedicine Attestation I conducted this encounter from [[place]] via secure live, [id number] video conference with the patient, located at [facility] with [Acute hypercapnic respiratory failure]. Prior to the interview, the risks and benefits of telemedicine were discussed with the patient and verbal consent was obtained.
--- NOTE | 2023-03-01 00:34 | PC.NURSE ---
Dr. Cantu notified of patients status at 2149. Patient is unresponsive except to painful stimuli at this time. Blood Gases are ordered and being draw. 2154 Dr Cantu video invited and on with Televisit to assess patient. Updated that patient has uneven pupils, only awakes to painful stimuli. Critical labs came back while Televisit was being done. Notified of Low Sodium level, PH of 7. 26 PC02 72. With patient being unresponsive and not able to protect his airway Dr Cantu decided it was best to intubate patient at this time. Sister to call Dr. Chu in ER at this time update for him to come to ICU and intubate patient. 2199 was called and updated on patients status. agrees with patient being a full code and would like him to be intubated. 222 Dr Chu in ICU with INSPECTOR FILTER TIP Joellen. Assessing patient and getting update from RN on events that transpired until where we are now. Dr. Chu, Joellen RN, Jessica RT, ro Miniature Set Builder, Devi RN, Russel RN in room at this time to assist with intubation. 2222 Pavel ordered 1mg IV ativan x1 dose. Ativan given at this time 2223 Blood Pressure 93/55 2225 BP 100/62, Bipap was was taken off patient, gag reflex checked by Pavel and patient did have one. RT Bagging patient at this time. 2227 15mg Etomidate IV given per Dr Chu verbal order by Joellen GEORGES 2228 Suctioning patients oral airways 2229. First attempt at intubation 2222 Second attempt at intubation, tube is in at 21cm at the lip. patient bit his tongue and lips at this time. Bite block added. 2235. Patient is fighting and biting the ET Tube. 2mg IV Ativan given per Dr. Chu Verbal order 2240 Portable chest Xray done at this time. Dr. chu looked at results. Tube advanced to 24cm at the lip. 2248 Pavel would like Sister to decide on which sedation he would like to Give. Devi GEORGES tiger texting with physican to get orders at this time. Vent Settings given by doctor . 2255. Lab in to draw patients blood. 2257: Dr. Cantu ordered precedex IV continuous drip. Devi Georges called Pharmacy material controller to clarify dosage and how to mix medication. 2258 Patient is on vent with settings of TV 500, RR 16, Peep of 5. To keep Oxygen greater than 90%. FI02 started at 40% ETC02 monitor reading 45.
[2023-03-01 01:23] LABS: Troponin I High Sensitivity 224.6 pg/mL (4.0-76.1)
[2023-03-01] MEDS: DEXTROSE 5 % IN WATER 1,000 ML 50 ML IV (01:26)
--- NOTE | 2023-03-01 02:13 | PM.IMPN1 ---
Progress Note: A&P Assessment and Plan (1) Acute hypercapnic respiratory failure: (2) COPD (chronic obstructive pulmonary disease): (3) Hyponatremia: Internal Medicine - PN: Subj Subjective Interval history: Brief Progress Note Patient was admitted to ICU for severe hyponatremia, acute resp failure with hypoxia and elevated troponin. Acute hypoxic resp failure/Acute hypercapnic resp failure: Patient has been experiencing worsening SOB for few days with cough, wheezing and was presumed to have COPD exacerbation resulting in acute resp failure that subsequently worsened rapidly where patient is now on Mechanical ventilator for acute hypoxic and hypercapnic resp failure. He was being empirically treated for PNA too with IV rocephin/Azithromycin even though CXR was normal. Plan is to get CT chest once pt is stable for better visualization of lung anatomy. COPD exacerbation - on steroids, duonebs. Severe hyponatremia - likely hypovolemic hypovolemia, urine sodium/cr and osm pending. Elevated trop - likely type 2 demand ischemia from profound hypoxia. ECHO Pending. HTN - borderline low BP. Exam Constitutional Vital Signs - 24 hr 02/28/23 14:11 02/28/23 14:38 02/28/23 14:40 Temperature 97.8 F Pulse Rate 86 Pulse Rate [Monitor] 97 H Respiratory Rate 42 H 40 H Blood Pressure Blood Pressure [Left Arm] 167/103 H Pulse Oximetry 94 L 98 Oxygen Delivery Method Nasal Cannula Nasal Cannula Oxygen Delivery Flow Rate 4 4 Fraction of Inspired Oxygen 02/28/23 14:10 02/28/23 14:11 02/28/23 14:12 Temperature Pulse Rate 91 H Pulse Rate [Monitor] Respiratory Rate 39 H 49 H Blood Pressure 180/103 H Blood Pressure [Left Arm] Pulse Oximetry 98 97 96 Oxygen Delivery Method Oxygen Delivery Flow Rate Fraction of Inspired Oxygen 02/28/23 14:13 02/28/23 14:15 02/28/23 16:26 Temperature Pulse Rate 78 88 Pulse Rate [Monitor] Respiratory Rate 32 H 36 H Blood Pressure 167/103 H 155/95 H Blood Pressure [Left Arm] Pulse Oximetry 93 L 96 Oxygen Delivery Method Vapotherm Oxygen Delivery Flow Rate 40 Fraction of Inspired Oxygen 60 02/28/23 14:15 02/28/23 16:32 02/28/23 17:26 Temperature Pulse Rate 88 94 H 90 Pulse Rate [Monitor] Respiratory Rate 31 H 19 23 Blood Pressure 155/95 H 144/112 H 156/96 H Blood Pressure [Left Arm] Pulse Oximetry 97 95 92 L Oxygen Delivery Method Oxygen Delivery Flow Rate Fraction of Inspired Oxygen 02/28/23 17:31 02/28/23 18:28 02/28/23 18:42 Temperature 98.6 F Pulse Rate 95 H 94 H Pulse Rate [Monitor] Respiratory Rate 24 32 H Blood Pressure 160/100 H Blood Pressure [Left Arm] 161/93 H Pulse Oximetry 91 L 90 L 92 L Oxygen Delivery Method Nasal Cannula Nasal Cannula Oxygen Delivery Flow Rate 6 6 Fraction of Inspired Oxygen 02/28/23 19:31 02/28/23 19:36 02/28/23 19:38 Temperature 98.2 F 98.2 F Pulse Rate 94 H 94 H 85 Pulse Rate [Monitor] Respiratory Rate 24 24 Blood Pressure Blood Pressure [Left Arm] 153/112 H 153/112 H Pulse Oximetry 97 97 97 Oxygen Delivery Method Vapotherm Vapotherm Oxygen Delivery Flow Rate 40 40 Fraction of Inspired Oxygen 60 60 02/28/23 19:43 02/28/23 20:25 02/28/23 19:00 Temperature Pulse Rate 76 Pulse Rate [Monitor] Respiratory Rate 24 Blood Pressure Blood Pressure [Left Arm] Pulse Oximetry 100 97 Oxygen Delivery Method Vapotherm Oxygen Delivery Flow Rate 40 Fraction of Inspired Oxygen 40 60 02/28/23 20:25 02/28/23 23:07 02/28/23 23:25 Temperature 98 F Pulse Rate 56 L 57 L Pulse Rate [Monitor] Respiratory Rate 16 Blood Pressure Blood Pressure [Left Arm] 87/53 L Pulse Oximetry 100 98 97 Oxygen Delivery Method BIPAP Mechanical Ventilator Oxygen Delivery Flow Rate Fraction of Inspired Oxygen 40 40 03/01/23 00:13 03/01/23 00:19 03/01/23 00:25 Temperature 98 F Pulse Rate 66 69 Pulse Rate [Monitor] 64 Respiratory Rate 14 14 Blood Pressure Blood Pressure [Left Arm] 97/54 L Pulse Oximetry 98 Oxygen Delivery Method Mechanical Ventilator Oxygen Delivery Flow Rate Fraction of Inspired Oxygen 40 02/28/23 17:31 02/28/23 18:00 02/28/23 18:08 Temperature Pulse Rate 88 95 H 91 H Pulse Rate [Monitor] Respiratory Rate 22 27 H 46 H Blood Pressure 160/100 H 166/96 H Blood Pressure [Left Arm] Pulse Oximetry 94 L Oxygen Delivery Method Oxygen Delivery Flow Rate Fraction of Inspired Oxygen 02/28/23 18:10 02/28/23 18:19 02/28/23 18:19 Temperature Pulse Rate 90 88 94 H Pulse Rate [Monitor] Respiratory Rate 42 H 33 H Blood Pressure 152/87 H Blood Pressure [Left Arm] Pulse Oximetry 92 L 83 L Oxygen Delivery Method Oxygen Delivery Flow Rate Fraction of Inspired Oxygen 02/28/23 18:30 02/28/23 18:37 02/28/23 18:46 Temperature Pulse Rate 91 H 92 H 98 H Pulse Rate [Monitor] Respiratory Rate Blood Pressure 160/97 H 161/93 H Blood Pressure [Left Arm] Pulse Oximetry 92 L Oxygen Delivery Method Oxygen Delivery Flow Rate Fraction of Inspired Oxygen 02/28/23 18:50 02/28/23 18:51 02/28/23 18:51 Temperature Pulse Rate 91 H 94 H 81 Pulse Rate [Monitor] Respiratory Rate 48 H 32 H Blood Pressure 169/96 H Blood Pressure [Left Arm] Pulse Oximetry 95 97 96 Oxygen Delivery Method Oxygen Delivery Flow Rate Fraction of Inspired Oxygen 02/28/23 19:01 02/28/23 19:15 02/28/23 19:32 Temperature Pulse Rate 92 H 97 H 93 H Pulse Rate [Monitor] Respiratory Rate 31 H 30 H 24 Blood Pressure 163/101 H 160/100 H 153/112 H Blood Pressure [Left Arm] Pulse Oximetry 97 98 98 Oxygen Delivery Method Oxygen Delivery Flow Rate Fraction of Inspired Oxygen 02/28/23 19:46 02/28/23 20:00 02/28/23 20:16 Temperature Pulse Rate 87 92 H 64 Pulse Rate [Monitor] Respiratory Rate 27 H 29 H 18 Blood Pressure 151/106 H 142/91 H 152/89 H Blood Pressure [Left Arm] Pulse Oximetry 97 96 100 Oxygen Delivery Method Oxygen Delivery Flow Rate Fraction of Inspired Oxygen 02/28/23 20:30 02/28/23 20:45 02/28/23 21:00 Temperature Pulse Rate 85 60 79 Pulse Rate [Monitor] Respiratory Rate 5 L 5 L 9 L Blood Pressure 142/90 H 109/73 91/53 L Blood Pressure [Left Arm] Pulse Oximetry 96 94 L 92 L Oxygen Delivery Method Oxygen Delivery Flow Rate Fraction of Inspired Oxygen 02/28/23 21:15 02/28/23 21:30 02/28/23 21:35 Temperature Pulse Rate 55 L 54 L 55 L Pulse Rate [Monitor] Respiratory Rate 7 L 7 L 16 Blood Pressure 91/66 81/51 L 87/50 L Blood Pressure [Left Arm] Pulse Oximetry 94 L 94 L 94 L Oxygen Delivery Method Oxygen Delivery Flow Rate Fraction of Inspired Oxygen 02/28/23 22:00 02/28/23 22:23 02/28/23 22:25 Temperature Pulse Rate 57 L 86 90 Pulse Rate [Monitor] Respiratory Rate 12 16 24 Blood Pressure 95/58 L 93/55 L 100/62 Blood Pressure [Left Arm] Pulse Oximetry 93 L 90 L 94 L Oxygen Delivery Method Oxygen Delivery Flow Rate Fraction of Inspired Oxygen 02/28/23 22:29 02/28/23 22:30 02/28/23 22:35 Temperature Pulse Rate 90 93 H 64 Pulse Rate [Monitor] Respiratory Rate 12 26 H 21 Blood Pressure 131/82 H 118/78 130/74 H Blood Pressure [Left Arm] Pulse Oximetry 96 94 L Oxygen Delivery Method Oxygen Delivery Flow Rate Fraction of Inspired Oxygen 02/28/23 22:40 02/28/23 22:45 02/28/23 22:50 Temperature Pulse Rate 87 94 H 82 Pulse Rate [Monitor] Respiratory Rate 20 25 H Blood Pressure 119/71 113/71 125/75 H Blood Pressure [Left Arm] Pulse Oximetry 100 Oxygen Delivery Method Oxygen Delivery Flow Rate Fraction of Inspired Oxygen 02/28/23 22:55 02/28/23 23:00 02/28/23 23:05 Temperature Pulse Rate 58 L 57 L 62 Pulse Rate [Monitor] Respiratory Rate Blood Pressure 119/72 100/59 L 87/53 L Blood Pressure [Left Arm] Pulse Oximetry 100 100 99 Oxygen Delivery Method Oxygen Delivery Flow Rate Fraction of Inspired Oxygen 02/28/23 23:10 02/28/23 23:15 02/28/23 23:20 Temperature Pulse Rate 55 L 58 L 58 L Pulse Rate [Monitor] Respiratory Rate Blood Pressure 88/56 L 88/58 L 80/53 L Blood Pressure [Left Arm] Pulse Oximetry 98 97 97 Oxygen Delivery Method Oxygen Delivery Flow Rate Fraction of Inspired Oxygen 02/28/23 23:25 02/28/23 23:30 02/28/23 23:35 Temperature Pulse Rate 58 L 68 58 L Pulse Rate [Monitor] Respiratory Rate Blood Pressure 92/53 L 80/51 L 85/52 L Blood Pressure [Left Arm] Pulse Oximetry 97 97 97 Oxygen Delivery Method Oxygen Delivery Flow Rate Fraction of Inspired Oxygen 02/28/23 23:40 02/28/23 23:45 02/28/23 23:50 Temperature Pulse Rate 72 58 L 60 Pulse Rate [Monitor] Respiratory Rate Blood Pressure 81/58 L 88/54 L 84/51 L Blood Pressure [Left Arm] Pulse Oximetry 98 99 98 Oxygen Delivery Method Oxygen Delivery Flow Rate Fraction of Inspired Oxygen 02/28/23 23:55 03/01/23 00:00 03/01/23 00:15 Temperature Pulse Rate 72 73 67 Pulse Rate [Monitor] Respiratory Rate Blood Pressure 83/50 L 86/55 L 97/54 L Blood Pressure [Left Arm] Pulse Oximetry 98 98 98 Oxygen Delivery Method Oxygen Delivery Flow Rate Fraction of Inspired Oxygen 03/01/23 00:15 03/01/23 00:30 03/01/23 00:45 Temperature Pulse Rate 70 67 67 Pulse Rate [Monitor] Respiratory Rate Blood Pressure 97/54 L 96/56 L 85/56 L Blood Pressure [Left Arm] Pulse Oximetry 98 99 99 Oxygen Delivery Method Oxygen Delivery Flow Rate Fraction of Inspired Oxygen 03/01/23 01:00 Temperature Pulse Rate 58 L Pulse Rate [Monitor] Respiratory Rate Blood Pressure 91/55 L Blood Pressure [Left Arm] Pulse Oximetry 99 Oxygen Delivery Method Oxygen Delivery Flow Rate Fraction of Inspired Oxygen Internal Medicine - PN: Obj Da Labs Labs: Laboratory Results - last 24 hr 02/28/23 02/28/23 02/28/23 13:32 14:15 16:20 WBC 7.3 RBC 5.23 Hgb 17.0 Hct 50.3 MCV 96.2 H MCH 32.5 MCHC 33.8 RDW 12.1 Plt Count 186 MPV 8.6 L Seg Neuts % (Manual) 91.0 Lymphocytes % (Manual) 5.0 L Monocytes % (Manual) 4.0 Eosinophils % (Manual) 0.0 L Basophils % (Manual) 0.0 L Neutrophils # (Manual) 6.64 H Lymphocytes # (Manual) 0.36 L Monocytes # (Manual) 0.29 L Eosinophils # (Manual) 0.00 Basophils # (Manual) 0.00 PT 10.9 INR 1.03 APTT 35.6 Puncture Site ABG pH ABG pCO2 ABG pO2 ABG HCO3 ABG O2 Saturation ABG Base Excess Ivan Test O2 Liters/Min FiO2 BiPAP Sodium 112 L* 111 L* Potassium 5.6 H Chloride 77 L* Carbon Dioxide 32.3 H Anion Gap 8.3 BUN 24.0 H Creatinine 1.23 Est GFR ( Amer) >60 Est GFR (Non-Af Amer) 56 L BUN/Creatinine Ratio 19.5 Glucose 111 H Calcium 8.6 Total Bilirubin 0.6 AST 46 H ALT 53 Alkaline Phosphatase 94 Troponin I High Sens 162.7 H* 172.7 H* NT-Pro-B Natriuret Pep 5785.0 H* Total Protein 7.0 Albumin 3.6 Globulin 3.4 Albumin/Globulin Ratio 1.1 TSH SARS-CoV-2 (PCR) Negative 02/28/23 02/28/23 02/28/23 18:45 19:35 20:45 WBC RBC Hgb Hct MCV MCH MCHC RDW Plt Count MPV Seg Neuts % (Manual) Lymphocytes % (Manual) Monocytes % (Manual) Eosinophils % (Manual) Basophils % (Manual) Neutrophils # (Manual) Lymphocytes # (Manual) Monocytes # (Manual) Eosinophils # (Manual) Basophils # (Manual) PT INR APTT Puncture Site R radial L radial ABG pH 7.238 L* 7.265 L* ABG pCO2 77.3 H* 72.2 H* ABG pO2 90.6 97.0 ABG HCO3 32.9 H 32.7 H ABG O2 Saturation 95.7 96.8 ABG Base Excess 5.5 H 5.7 H Ivan Test Positive Positive O2 Liters/Min 40 FiO2 60 40 BiPAP 16/8 Sodium 114 L* Potassium 5.3 H Chloride 81 L* Carbon Dioxide 31.6 Anion Gap 6.7 BUN 22.0 H Creatinine 0.97 Est GFR ( Amer) >60 Est GFR (Non-Af Amer) >60 BUN/Creatinine Ratio 22.7 Glucose 117 H Calcium 8.4 L Total Bilirubin AST ALT Alkaline Phosphatase Troponin I High Sens 244.9 H* NT-Pro-B Natriuret Pep Total Protein Albumin Globulin Albumin/Globulin Ratio TSH 0.668 SARS-CoV-2 (PCR) 02/28/23 03/01/23 23:00 00:55 WBC RBC Hgb Hct MCV MCH MCHC RDW Plt Count MPV Seg Neuts % (Manual) Lymphocytes % (Manual) Monocytes % (Manual) Eosinophils % (Manual) Basophils % (Manual) Neutrophils # (Manual) Lymphocytes # (Manual) Monocytes # (Manual) Eosinophils # (Manual) Basophils # (Manual) PT INR APTT Puncture Site ABG pH ABG pCO2 ABG pO2 ABG HCO3 ABG O2 Saturation ABG Base Excess Ivan Test O2 Liters/Min FiO2 BiPAP Sodium 117 L* Potassium 5.6 H Chloride 83 L* Carbon Dioxide 33.7 H Anion Gap 5.9 BUN 22.0 H Creatinine 1.06 Est GFR ( Amer) >60 Est GFR (Non-Af Amer) >60 BUN/Creatinine Ratio 20.8 Glucose 116 H Calcium 8.1 L Total Bilirubin AST ALT Alkaline Phosphatase Troponin I High Sens 321.7 H* 224.6 H* NT-Pro-B Natriuret Pep Total Protein Albumin Globulin Albumin/Globulin Ratio TSH SARS-CoV-2 (PCR) Urinary Catheter Management Urinary Catheter Management Urethral: Cath placed during this visit: yes Urethral indwelling: Yes Reason for continuing: measure accurate output Insertion date: 02/28/23 Insertion time: 23:45
[2023-03-01] MEDS: IPRATROPIUM/ALBUTEROL SULFATE 3 ML AMPUL.NEB IH ×6 (03:52→23:20)
[2023-03-01 04:18] LABS: Allen Test POSITIVE (POSITIVE); Base Excess ABG 7.3 mmol/L (-2.0-2.0); Fractionated Inspired Oxygen 40 %; HCO3 ABG 32.2 mmol/L (22.0-26.0); O2 Mode VENTILATOR; Oxygen Saturation ABG 95.7 %; pH ABG 7.398 (7.350-7.450)
[2023-03-01 04:19] LABS: Puncture Site L RADIAL; Rate 16; Tidal Volume 500; Vent Mode A/C
[2023-03-01 04:20] LABS: ABG PCO2 52.1 mmHg (35.0-45.0)
[2023-03-01 04:43] LABS: Eosinophils Percent Auto 0.2 % (0.9-7.0); Hematocrit 41.6 % (42.0-54.0); Hemoglobin 14.3 g/dL (14.0-18.0); Immature Granulocytes Abs Auto 0.03 10^3/uL (0.00-0.03); Immature Granulocytes Pct Auto 0.6 % (0.0-0.5); Lymphocytes Absolute Auto 0.1 10^3/uL (1.2-3.8); Lymphocytes Percent Auto 2.7 % (20.5-60.0); Mean Corpuscular HGB Conc 34.4 g/dL (29.9-35.2); Mean Corpuscular Hemoglobin 32.7 pg (25.9-34.0); Mean Corpuscular Volume 95.2 fL (80.0-94.0); Mean Platelet Volume 9.4 fL (9.5-13.5); Monocytes Absolute Auto 0.2 10^3/uL (0.3-0.8); Monocytes Percent Auto 2.9 % (1.7-12.0); Neutrophils Absolute Auto 4.8 10^3/uL (1.4-6.5); Neutrophils Percent Auto 93.6 % (43.0-75.0); Platelet Count 132 10^3/uL (150-450); Red Blood Count 4.37 10^6/uL (4.70-6.10); Red Cell Distribution Width 12.2 % (11.0-15.0); White Blood Count 5.1 10^3/uL (4.0-11.0)
[2023-03-01 05:02] LABS: Alanine Aminotransferase 47 U/L (16-63); Albumin Level 2.4 g/dL (3.4-5.0); Alkaline Phosphatase 66 U/L (46-116); Anion Gap 9.8; Aspartate Amino Transferase 37 U/L (15-37); BUN Creatinine Ratio 20.6; Bilirubin Total 0.5 mg/dL (0.2-1.0); Calcium 7.1 mg/dL (8.5-10.1); Carbon Dioxide 26.2 mmol/L (21.0-32.0); Estimated GFR (African America >60 (>=60); Estimated GFR (Non-African Ame >60 (>=60); Globulin 2.5 g/dL; Total Protein 4.9 g/dL (6.4-8.2)
[2023-03-01 05:06] LABS: Chol HDL Ratio 1.8; Cholesterol 91 mg/dL (<=200); HDL Cholesterol 51 mg/dL (40-60); LDL Cholesterol Calculated 27.4 mg/dL; Triglycerides 63 mg/dL (<=150); VLDL CHOLESTEROL 12.6 mg/dL
[2023-03-01 05:07] LABS: Estimated Average Glucose 114 mg/dL; Glycohemoglobin A1C 5.6 % (4.5-6.2)
[2023-03-01 05:18] LABS: Sodium 106 mmol/L (136-145)
[2023-03-01 05:19] LABS: Chloride 75 mmol/L (98-107); Glucose 550 mg/dL (74-106)
--- NOTE | 2023-03-01 05:39 | P.PN_ITS ---
Progress Note: Subjective Subjective Interval history: Brief Progress Note Patient was admitted to ICU for severe hyponatremia, acute resp failure with hypercapnia and elevated troponin. Exam Constitutional Vital Signs - 24 hr 02/28/23 14:11 02/28/23 14:38 02/28/23 14:40 Temperature 97.8 F Pulse Rate 86 Pulse Rate [Monitor] 97 H Respiratory Rate 42 H 40 H Blood Pressure Blood Pressure [Left Arm] 167/103 H Pulse Oximetry 94 L 98 Oxygen Delivery Method Nasal Cannula Nasal Cannula Oxygen Delivery Flow Rate 4 4 Fraction of Inspired Oxygen 02/28/23 14:10 02/28/23 14:11 02/28/23 14:12 Temperature Pulse Rate 91 H Pulse Rate [Monitor] Respiratory Rate 39 H 49 H Blood Pressure 180/103 H Blood Pressure [Left Arm] Pulse Oximetry 98 97 96 Oxygen Delivery Method Oxygen Delivery Flow Rate Fraction of Inspired Oxygen 02/28/23 14:13 02/28/23 14:15 02/28/23 16:26 Temperature Pulse Rate 78 88 Pulse Rate [Monitor] Respiratory Rate 32 H 36 H Blood Pressure 167/103 H 155/95 H Blood Pressure [Left Arm] Pulse Oximetry 93 L 96 Oxygen Delivery Method Vapotherm Oxygen Delivery Flow Rate 40 Fraction of Inspired Oxygen 60 02/28/23 14:15 02/28/23 16:32 02/28/23 17:26 Temperature Pulse Rate 88 94 H 90 Pulse Rate [Monitor] Respiratory Rate 31 H 19 23 Blood Pressure 155/95 H 144/112 H 156/96 H Blood Pressure [Left Arm] Pulse Oximetry 97 95 92 L Oxygen Delivery Method Oxygen Delivery Flow Rate Fraction of Inspired Oxygen 02/28/23 17:31 02/28/23 18:28 02/28/23 18:42 Temperature 98.6 F Pulse Rate 95 H 94 H Pulse Rate [Monitor] Respiratory Rate 24 32 H Blood Pressure 160/100 H Blood Pressure [Left Arm] 161/93 H Pulse Oximetry 91 L 90 L 92 L Oxygen Delivery Method Nasal Cannula Nasal Cannula Oxygen Delivery Flow Rate 6 6 Fraction of Inspired Oxygen 03/01/23 03:00 03/01/23 03:39 03/01/23 03:39 Temperature 97.9 F 97.8 F Pulse Rate 57 L 58 L Pulse Rate [Monitor] 57 L Respiratory Rate 14 14 Blood Pressure Blood Pressure [Left Arm] 100/62 117/68 Pulse Oximetry 98 97 Oxygen Delivery Method Mechanical Ventilator Mechanical Ventilator Oxygen Delivery Flow Rate Fraction of Inspired Oxygen 40 40 03/01/23 03:39 02/28/23 19:31 02/28/23 19:36 Temperature 98.2 F Pulse Rate 57 L 94 H 94 H Pulse Rate [Monitor] Respiratory Rate 24 Blood Pressure Blood Pressure [Left Arm] 153/112 H Pulse Oximetry 97 97 Oxygen Delivery Method Vapotherm Oxygen Delivery Flow Rate 40 Fraction of Inspired Oxygen 60 02/28/23 19:38 02/28/23 19:43 02/28/23 20:25 Temperature 98.2 F Pulse Rate 85 76 Pulse Rate [Monitor] Respiratory Rate 24 24 Blood Pressure Blood Pressure [Left Arm] 153/112 H Pulse Oximetry 97 100 Oxygen Delivery Method Vapotherm Oxygen Delivery Flow Rate 40 Fraction of Inspired Oxygen 60 40 02/28/23 19:00 02/28/23 20:25 02/28/23 23:07 Temperature 98 F Pulse Rate 56 L Pulse Rate [Monitor] Respiratory Rate Blood Pressure Blood Pressure [Left Arm] 87/53 L Pulse Oximetry 97 100 98 Oxygen Delivery Method Vapotherm BIPAP Mechanical Ventilator Oxygen Delivery Flow Rate 40 Fraction of Inspired Oxygen 60 40 02/28/23 23:25 03/01/23 00:13 03/01/23 00:19 Temperature 98 F Pulse Rate 57 L 66 Pulse Rate [Monitor] 64 Respiratory Rate 16 14 14 Blood Pressure Blood Pressure [Left Arm] 97/54 L Pulse Oximetry 97 98 Oxygen Delivery Method Mechanical Ventilator Oxygen Delivery Flow Rate Fraction of Inspired Oxygen 40 40 03/01/23 00:25 02/28/23 17:31 02/28/23 18:00 Temperature Pulse Rate 69 88 95 H Pulse Rate [Monitor] Respiratory Rate 22 27 H Blood Pressure 160/100 H 166/96 H Blood Pressure [Left Arm] Pulse Oximetry 94 L Oxygen Delivery Method Oxygen Delivery Flow Rate Fraction of Inspired Oxygen 02/28/23 18:08 02/28/23 18:10 02/28/23 18:19 Temperature Pulse Rate 91 H 90 88 Pulse Rate [Monitor] Respiratory Rate 46 H 42 H Blood Pressure 152/87 H Blood Pressure [Left Arm] Pulse Oximetry 92 L Oxygen Delivery Method Oxygen Delivery Flow Rate Fraction of Inspired Oxygen 02/28/23 18:19 02/28/23 18:30 02/28/23 18:37 Temperature Pulse Rate 94 H 91 H 92 H Pulse Rate [Monitor] Respiratory Rate 33 H Blood Pressure 160/97 H 161/93 H Blood Pressure [Left Arm] Pulse Oximetry 83 L 92 L Oxygen Delivery Method Oxygen Delivery Flow Rate Fraction of Inspired Oxygen 02/28/23 18:46 02/28/23 18:50 02/28/23 18:51 Temperature Pulse Rate 98 H 91 H 94 H Pulse Rate [Monitor] Respiratory Rate 48 H Blood Pressure 169/96 H Blood Pressure [Left Arm] Pulse Oximetry 95 97 Oxygen Delivery Method Oxygen Delivery Flow Rate Fraction of Inspired Oxygen 02/28/23 18:51 02/28/23 19:01 02/28/23 19:15 Temperature Pulse Rate 81 92 H 97 H Pulse Rate [Monitor] Respiratory Rate 32 H 31 H 30 H Blood Pressure 163/101 H 160/100 H Blood Pressure [Left Arm] Pulse Oximetry 96 97 98 Oxygen Delivery Method Oxygen Delivery Flow Rate Fraction of Inspired Oxygen 02/28/23 19:32 02/28/23 19:46 02/28/23 20:00 Temperature Pulse Rate 93 H 87 92 H Pulse Rate [Monitor] Respiratory Rate 24 27 H 29 H Blood Pressure 153/112 H 151/106 H 142/91 H Blood Pressure [Left Arm] Pulse Oximetry 98 97 96 Oxygen Delivery Method Oxygen Delivery Flow Rate Fraction of Inspired Oxygen 02/28/23 20:16 02/28/23 20:30 02/28/23 20:45 Temperature Pulse Rate 64 85 60 Pulse Rate [Monitor] Respiratory Rate 18 5 L 5 L Blood Pressure 152/89 H 142/90 H 109/73 Blood Pressure [Left Arm] Pulse Oximetry 100 96 94 L Oxygen Delivery Method Oxygen Delivery Flow Rate Fraction of Inspired Oxygen 02/28/23 21:00 02/28/23 21:15 02/28/23 21:30 Temperature Pulse Rate 79 55 L 54 L Pulse Rate [Monitor] Respiratory Rate 9 L 7 L 7 L Blood Pressure 91/53 L 91/66 81/51 L Blood Pressure [Left Arm] Pulse Oximetry 92 L 94 L 94 L Oxygen Delivery Method Oxygen Delivery Flow Rate Fraction of Inspired Oxygen 02/28/23 21:35 02/28/23 22:00 02/28/23 22:23 Temperature Pulse Rate 55 L 57 L 86 Pulse Rate [Monitor] Respiratory Rate 16 12 16 Blood Pressure 87/50 L 95/58 L 93/55 L Blood Pressure [Left Arm] Pulse Oximetry 94 L 93 L 90 L Oxygen Delivery Method Oxygen Delivery Flow Rate Fraction of Inspired Oxygen 02/28/23 22:25 02/28/23 22:29 02/28/23 22:30 Temperature Pulse Rate 90 90 93 H Pulse Rate [Monitor] Respiratory Rate 24 12 26 H Blood Pressure 100/62 131/82 H 118/78 Blood Pressure [Left Arm] Pulse Oximetry 94 L 96 94 L Oxygen Delivery Method Oxygen Delivery Flow Rate Fraction of Inspired Oxygen 02/28/23 22:35 02/28/23 22:40 02/28/23 22:45 Temperature Pulse Rate 64 87 94 H Pulse Rate [Monitor] Respiratory Rate 21 20 25 H Blood Pressure 130/74 H 119/71 113/71 Blood Pressure [Left Arm] Pulse Oximetry Oxygen Delivery Method Oxygen Delivery Flow Rate Fraction of Inspired Oxygen 02/28/23 22:50 02/28/23 22:55 02/28/23 23:00 Temperature Pulse Rate 82 58 L 57 L Pulse Rate [Monitor] Respiratory Rate Blood Pressure 125/75 H 119/72 100/59 L Blood Pressure [Left Arm] Pulse Oximetry 100 100 100 Oxygen Delivery Method Oxygen Delivery Flow Rate Fraction of Inspired Oxygen 02/28/23 23:05 02/28/23 23:10 02/28/23 23:15 Temperature Pulse Rate 62 55 L 58 L Pulse Rate [Monitor] Respiratory Rate Blood Pressure 87/53 L 88/56 L 88/58 L Blood Pressure [Left Arm] Pulse Oximetry 99 98 97 Oxygen Delivery Method Oxygen Delivery Flow Rate Fraction of Inspired Oxygen 02/28/23 23:20 02/28/23 23:25 02/28/23 23:30 Temperature Pulse Rate 58 L 58 L 68 Pulse Rate [Monitor] Respiratory Rate Blood Pressure 80/53 L 92/53 L 80/51 L Blood Pressure [Left Arm] Pulse Oximetry 97 97 97 Oxygen Delivery Method Oxygen Delivery Flow Rate Fraction of Inspired Oxygen 02/28/23 23:35 02/28/23 23:40 02/28/23 23:45 Temperature Pulse Rate 58 L 72 58 L Pulse Rate [Monitor] Respiratory Rate Blood Pressure 85/52 L 81/58 L 88/54 L Blood Pressure [Left Arm] Pulse Oximetry 97 98 99 Oxygen Delivery Method Oxygen Delivery Flow Rate Fraction of Inspired Oxygen 02/28/23 23:50 02/28/23 23:55 03/01/23 00:00 Temperature Pulse Rate 60 72 73 Pulse Rate [Monitor] Respiratory Rate Blood Pressure 84/51 L 83/50 L 86/55 L Blood Pressure [Left Arm] Pulse Oximetry 98 98 98 Oxygen Delivery Method Oxygen Delivery Flow Rate Fraction of Inspired Oxygen 03/01/23 00:15 03/01/23 00:15 03/01/23 00:30 Temperature Pulse Rate 67 70 67 Pulse Rate [Monitor] Respiratory Rate Blood Pressure 97/54 L 97/54 L 96/56 L Blood Pressure [Left Arm] Pulse Oximetry 98 98 99 Oxygen Delivery Method Oxygen Delivery Flow Rate Fraction of Inspired Oxygen 03/01/23 00:45 03/01/23 01:00 03/01/23 03:52 Temperature Pulse Rate 67 58 L 58 L Pulse Rate [Monitor] Respiratory Rate 16 Blood Pressure 85/56 L 91/55 L Blood Pressure [Left Arm] Pulse Oximetry 99 99 97 Oxygen Delivery Method Oxygen Delivery Flow Rate Fraction of Inspired Oxygen 40 03/01/23 03:52 03/01/23 04:54 03/01/23 01:15 Temperature Pulse Rate 63 60 Pulse Rate [Monitor] Respiratory Rate Blood Pressure 90/59 L Blood Pressure [Left Arm] Pulse Oximetry 97 98 Oxygen Delivery Method Mechanical Ventilator Oxygen Delivery Flow Rate Fraction of Inspired Oxygen 40 03/01/23 01:30 03/01/23 01:45 03/01/23 02:00 Temperature Pulse Rate 65 58 L 60 Pulse Rate [Monitor] Respiratory Rate Blood Pressure 100/61 98/59 L 93/59 L Blood Pressure [Left Arm] Pulse Oximetry 98 99 98 Oxygen Delivery Method Oxygen Delivery Flow Rate Fraction of Inspired Oxygen 03/01/23 02:15 03/01/23 02:30 03/01/23 02:45 Temperature Pulse Rate 57 L 58 L 57 L Pulse Rate [Monitor] Respiratory Rate Blood Pressure 100/63 101/62 108/64 Blood Pressure [Left Arm] Pulse Oximetry 99 98 98 Oxygen Delivery Method Oxygen Delivery Flow Rate Fraction of Inspired Oxygen 03/01/23 03:00 03/01/23 03:15 03/01/23 03:30 Temperature Pulse Rate 57 L 57 L 57 L Pulse Rate [Monitor] Respiratory Rate Blood Pressure 100/62 109/64 110/65 Blood Pressure [Left Arm] Pulse Oximetry 98 97 97 Oxygen Delivery Method Oxygen Delivery Flow Rate Fraction of Inspired Oxygen 03/01/23 03:45 03/01/23 04:00 03/01/23 04:15 Temperature Pulse Rate 60 58 L 61 Pulse Rate [Monitor] Respiratory Rate Blood Pressure 117/68 115/67 100/58 L Blood Pressure [Left Arm] Pulse Oximetry 96 98 97 Oxygen Delivery Method Oxygen Delivery Flow Rate Fraction of Inspired Oxygen 03/01/23 04:30 03/01/23 04:45 Temperature Pulse Rate 63 66 Pulse Rate [Monitor] Respiratory Rate Blood Pressure 104/61 105/64 Blood Pressure [Left Arm] Pulse Oximetry 97 97 Oxygen Delivery Method Oxygen Delivery Flow Rate Fraction of Inspired Oxygen Progress Note: Objective Labs Labs: Short CBC 02/28/23 03/01/23 Range/Units 13:32 04:00 WBC 7.3 5.1 (4.0-11.0) 10^3/uL Hgb 17.0 14.3 (14.0-18.0) g/dL Hct 50.3 41.6 L (42.0-54.0) % Plt Count 186 132 L (150-450) 10^3/uL BMP 02/28/23 02/28/23 02/28/23 13:32 16:20 18:45 Sodium 112 L* 111 L* 114 L* Potassium 5.6 H 5.3 H Chloride 77 L* 81 L* Carbon Dioxide 32.3 H 31.6 BUN 24.0 H 22.0 H Creatinine 1.23 0.97 Glucose 111 H 117 H Calcium 8.6 8.4 L 02/28/23 03/01/23 23:00 04:00 Sodium 117 L* 106 L* Potassium 5.6 H 5.0 Chloride 83 L* 75 L* Carbon Dioxide 33.7 H 26.2 BUN 22.0 H 20.0 H Creatinine 1.06 0.97 Glucose 116 H 550 H* Calcium 8.1 L 7.1 L Liver Function 02/28/23 03/01/23 Range/Units 13:32 04:00 Total Bilirubin 0.6 0.5 (0.2-1.0) mg/dL AST 46 H 37 (15-37) U/L ALT 53 47 (16-63) U/L Alkaline Phosphatase 94 66 (46-116) U/L Albumin 3.6 2.4 L (3.4-5.0) g/dL Progress Note: A&P Assessment and Plan (1) Acute hypercapnic respiratory failure: Assessment and Plan: Seems to be doing better with mechanical ventilation. Respiratory acidosis resolving. CO2 retention better. Continue with current moderate (2) COPD (chronic obstructive pulmonary disease): Assessment and Plan: Continue with inhaled bronchodilators, steroids (3) Hyponatremia: Assessment and Plan: Patient's rate of correction was too fast. IV fluids changed to D5W. Patient received IV desmopressin. Latest sodium level is 115 (calculated for hyperglycemia). Continue with slow correction. Goal of correction?6-8 mEq / 24 hours. Continue with frequent sodium levels check (ordered every 4 hours) (4) Diabetes: Assessment and Plan: Seems to be new diagnosis for this patient. Statin on coverage with insulin sliding scale. There is no acidosis or gap. Telemedicine Attestation Telemedicine Attestation I conducted this encounter from [[place]] via secure live, [id number] video conference with the patient, located at [facility] with [acute hypercapnic respiratory failure]. Prior to the interview, the risks and benefits of telemedicine were discussed with the patient and verbal consent was obtained.
[2023-03-01] MEDS: DEXMEDETOMIDINE HCL 200 MCG in 0.9 % SODIUM CHLORIDE 50 ML 239.304 MCG IV (05:52)
[2023-03-01] MEDS: METHYLPREDNISOLONE SOD SUCC PF 40 MG/ML VIAL IVP ×3 (05:52→21:10)
[2023-03-01 06:02] LABS: Glucometer 128 mg/dL (74-106)
[2023-03-01 07:05] LABS: Anion Gap 10.3; BUN Creatinine Ratio 24.5; Calcium 8.2 mg/dL (8.5-10.1); Carbon Dioxide 31.6 mmol/L (21.0-32.0); Estimated GFR (African America >60 (>=60); Estimated GFR (Non-African Ame >60 (>=60); Glucose 132 mg/dL (74-106); Potassium 5.9 mmol/L (3.5-5.1)
[2023-03-01 07:12] LABS: Chloride 81 mmol/L (98-107); Sodium 117 mmol/L (136-145)
[2023-03-01 09:45] LABS: Glucometer 139 mg/dL (74-106)
--- NOTE | 2023-03-01 10:35 | CT_ITS ---
[address] [address] Patient Name: ELIDA JERONIMO MRN: [id number] date: 1940 Sex: M Assigned Patient Location: ICU Current Patient Location: ICU Accession/Order Number: [id number] Exam Date: 03/01/2023 15:45 Report Date: 03/02/2023 06:32 At the request of: SHAIKH ROMAN Procedure: CT angio chest EXAM: CT pulmonary angiogram of the chest using 100 mL of IV iodinated contrast. 3-D imaging was performed. Dose reduction technique used: Automated exposure control and/or adjustment of the mA and/or kV according to patient size and/or use of iterative reconstruction technique. REASON FOR EXAM: Dyspnea, r/o PE COMPARISON: CT scan dated 02/01/2020 FINDINGS: Possible small solitary subsegmental pulmonary embolus in the left lower lobe versus artifact (series 4, images 46-49. Otherwise no other pulmonary emboli. No aortic dissection. No pneumothorax. No pleural effusion. No acute fractures. No concerning pulmonary nodules. No definite lymphadenopathy in the chest. Atelectasis involving most of the right lower lobe. ETT with tip in the right mainstem bronchus, this should be pulled back. 1.1 x 0.7 cm pleural-based nodule in the posterior left apex, this is new since 2019. NG tube with tip below the diaphragm. Coronary atherosclerotic calcifications. Remainder unremarkable. IMPRESSION: 1. Possible small solitary subsegmental left lower lobe pulmonary embolus versus artifact. 2. Large amount of right lower lobe atelectasis. 3. ETT with tip in the right mainstem bronchus, this should be pulled back. 4. Left apical nodule is indeterminate for malignancy. Recommend follow-up chest CT in 3 months versus PET/CT. Electronically authenticated by: CIERRA OLIVAREZ Date: 03/02/2023 06:32
--- NOTE | 2023-03-01 10:46 | PM.IMCN1 ---
HPI - Internal Medicine CN Data of Consult Consult date: 03/01/23 Requesting Physician: Shaikh Jefferson MD Primary Care Provider: Dony Rao DO Consult Narrative Reason for consult: Respiratory Failure Narrative: 82 y o male with hx of HTN, possible VTE cc:: CC: Shaikh Jefferson MD Review of Systems ROS Narrative Unable as patient is sedated/on ventilator PFSH PFS Medical History Surgical History Social History Smoking status: Current every day smoker Meds Home Medications and Allergies Home Medications Medication Instructions Recorded Confirmed Type lisinopril 40 mg tablet 40 mg PO DAILY 02/28/23 02/28/23 History metoprolol succinate 25 mg 25 mg PO DAILY 02/28/23 02/28/23 History tablet,extended release 24 hr Allergies Allergy/AdvReac Type Severity Reaction Status Date / Time No Known Drug Allergies Allergy Verified 02/28/23 14:41 Exam Constitutional Vital Signs - 24 hr 02/28/23 14:11 02/28/23 14:38 02/28/23 14:40 Temperature 97.8 F Pulse Rate 86 Pulse Rate [Monitor] 97 H Respiratory Rate 42 H 40 H Blood Pressure Blood Pressure [Left Arm] 167/103 H Pulse Oximetry 94 L 98 Oxygen Delivery Method Nasal Cannula Nasal Cannula Oxygen Delivery Flow Rate 4 4 Fraction of Inspired Oxygen 02/28/23 14:10 02/28/23 14:11 02/28/23 14:12 Temperature Pulse Rate 91 H Pulse Rate [Monitor] Respiratory Rate 39 H 49 H Blood Pressure 180/103 H Blood Pressure [Left Arm] Pulse Oximetry 98 97 96 Oxygen Delivery Method Oxygen Delivery Flow Rate Fraction of Inspired Oxygen 02/28/23 14:13 02/28/23 14:15 02/28/23 16:26 Temperature Pulse Rate 78 88 Pulse Rate [Monitor] Respiratory Rate 32 H 36 H Blood Pressure 167/103 H 155/95 H Blood Pressure [Left Arm] Pulse Oximetry 93 L 96 Oxygen Delivery Method Vapotherm Oxygen Delivery Flow Rate 40 Fraction of Inspired Oxygen 60 02/28/23 14:15 02/28/23 16:32 02/28/23 17:26 Temperature Pulse Rate 88 94 H 90 Pulse Rate [Monitor] Respiratory Rate 31 H 19 23 Blood Pressure 155/95 H 144/112 H 156/96 H Blood Pressure [Left Arm] Pulse Oximetry 97 95 92 L Oxygen Delivery Method Oxygen Delivery Flow Rate Fraction of Inspired Oxygen 02/28/23 17:31 02/28/23 18:28 02/28/23 18:42 Temperature 98.6 F Pulse Rate 95 H 94 H Pulse Rate [Monitor] Respiratory Rate 24 32 H Blood Pressure 160/100 H Blood Pressure [Left Arm] 161/93 H Pulse Oximetry 91 L 90 L 92 L Oxygen Delivery Method Nasal Cannula Nasal Cannula Oxygen Delivery Flow Rate 6 6 Fraction of Inspired Oxygen 03/01/23 03:00 03/01/23 03:39 03/01/23 03:39 Temperature 97.9 F 97.8 F Pulse Rate 57 L 58 L Pulse Rate [Monitor] 57 L Respiratory Rate 14 14 Blood Pressure Blood Pressure [Left Arm] 100/62 117/68 Pulse Oximetry 98 97 Oxygen Delivery Method Mechanical Ventilator Mechanical Ventilator Oxygen Delivery Flow Rate Fraction of Inspired Oxygen 40 40 03/01/23 03:39 02/28/23 19:31 02/28/23 19:36 Temperature 98.2 F Pulse Rate 57 L 94 H 94 H Pulse Rate [Monitor] Respiratory Rate 24 Blood Pressure Blood Pressure [Left Arm] 153/112 H Pulse Oximetry 97 97 Oxygen Delivery Method Vapotherm Oxygen Delivery Flow Rate 40 Fraction of Inspired Oxygen 60 02/28/23 19:38 02/28/23 19:43 02/28/23 20:25 Temperature 98.2 F Pulse Rate 85 76 Pulse Rate [Monitor] Respiratory Rate 24 24 Blood Pressure Blood Pressure [Left Arm] 153/112 H Pulse Oximetry 97 100 Oxygen Delivery Method Vapotherm Oxygen Delivery Flow Rate 40 Fraction of Inspired Oxygen 60 40 02/28/23 19:00 02/28/23 20:25 02/28/23 23:07 Temperature 98 F Pulse Rate 56 L Pulse Rate [Monitor] Respiratory Rate Blood Pressure Blood Pressure [Left Arm] 87/53 L Pulse Oximetry 97 100 98 Oxygen Delivery Method Vapotherm BIPAP Mechanical Ventilator Oxygen Delivery Flow Rate 40 Fraction of Inspired Oxygen 60 40 02/28/23 23:25 03/01/23 00:13 03/01/23 00:19 Temperature 98 F Pulse Rate 57 L 66 Pulse Rate [Monitor] 64 Respiratory Rate 16 14 14 Blood Pressure Blood Pressure [Left Arm] 97/54 L Pulse Oximetry 97 98 Oxygen Delivery Method Mechanical Ventilator Oxygen Delivery Flow Rate Fraction of Inspired Oxygen 40 40 03/01/23 00:25 02/28/23 17:31 02/28/23 18:00 Temperature Pulse Rate 69 88 95 H Pulse Rate [Monitor] Respiratory Rate 22 27 H Blood Pressure 160/100 H 166/96 H Blood Pressure [Left Arm] Pulse Oximetry 94 L Oxygen Delivery Method Oxygen Delivery Flow Rate Fraction of Inspired Oxygen 02/28/23 18:08 02/28/23 18:10 02/28/23 18:19 Temperature Pulse Rate 91 H 90 88 Pulse Rate [Monitor] Respiratory Rate 46 H 42 H Blood Pressure 152/87 H Blood Pressure [Left Arm] Pulse Oximetry 92 L Oxygen Delivery Method Oxygen Delivery Flow Rate Fraction of Inspired Oxygen 02/28/23 18:19 02/28/23 18:30 02/28/23 18:37 Temperature Pulse Rate 94 H 91 H 92 H Pulse Rate [Monitor] Respiratory Rate 33 H Blood Pressure 160/97 H 161/93 H Blood Pressure [Left Arm] Pulse Oximetry 83 L 92 L Oxygen Delivery Method Oxygen Delivery Flow Rate Fraction of Inspired Oxygen 02/28/23 18:46 02/28/23 18:50 02/28/23 18:51 Temperature Pulse Rate 98 H 91 H 94 H Pulse Rate [Monitor] Respiratory Rate 48 H Blood Pressure 169/96 H Blood Pressure [Left Arm] Pulse Oximetry 95 97 Oxygen Delivery Method Oxygen Delivery Flow Rate Fraction of Inspired Oxygen 02/28/23 18:51 02/28/23 19:01 02/28/23 19:15 Temperature Pulse Rate 81 92 H 97 H Pulse Rate [Monitor] Respiratory Rate 32 H 31 H 30 H Blood Pressure 163/101 H 160/100 H Blood Pressure [Left Arm] Pulse Oximetry 96 97 98 Oxygen Delivery Method Oxygen Delivery Flow Rate Fraction of Inspired Oxygen 02/28/23 19:32 02/28/23 19:46 02/28/23 20:00 Temperature Pulse Rate 93 H 87 92 H Pulse Rate [Monitor] Respiratory Rate 24 27 H 29 H Blood Pressure 153/112 H 151/106 H 142/91 H Blood Pressure [Left Arm] Pulse Oximetry 98 97 96 Oxygen Delivery Method Oxygen Delivery Flow Rate Fraction of Inspired Oxygen 02/28/23 20:16 02/28/23 20:30 02/28/23 20:45 Temperature Pulse Rate 64 85 60 Pulse Rate [Monitor] Respiratory Rate 18 5 L 5 L Blood Pressure 152/89 H 142/90 H 109/73 Blood Pressure [Left Arm] Pulse Oximetry 100 96 94 L Oxygen Delivery Method Oxygen Delivery Flow Rate Fraction of Inspired Oxygen 02/28/23 21:00 02/28/23 21:15 02/28/23 21:30 Temperature Pulse Rate 79 55 L 54 L Pulse Rate [Monitor] Respiratory Rate 9 L 7 L 7 L Blood Pressure 91/53 L 91/66 81/51 L Blood Pressure [Left Arm] Pulse Oximetry 92 L 94 L 94 L Oxygen Delivery Method Oxygen Delivery Flow Rate Fraction of Inspired Oxygen 02/28/23 21:35 02/28/23 22:00 02/28/23 22:23 Temperature Pulse Rate 55 L 57 L 86 Pulse Rate [Monitor] Respiratory Rate 16 12 16 Blood Pressure 87/50 L 95/58 L 93/55 L Blood Pressure [Left Arm] Pulse Oximetry 94 L 93 L 90 L Oxygen Delivery Method Oxygen Delivery Flow Rate Fraction of Inspired Oxygen 02/28/23 22:25 02/28/23 22:29 02/28/23 22:30 Temperature Pulse Rate 90 90 93 H Pulse Rate [Monitor] Respiratory Rate 24 12 26 H Blood Pressure 100/62 131/82 H 118/78 Blood Pressure [Left Arm] Pulse Oximetry 94 L 96 94 L Oxygen Delivery Method Oxygen Delivery Flow Rate Fraction of Inspired Oxygen 02/28/23 22:35 02/28/23 22:40 02/28/23 22:45 Temperature Pulse Rate 64 87 94 H Pulse Rate [Monitor] Respiratory Rate 21 20 25 H Blood Pressure 130/74 H 119/71 113/71 Blood Pressure [Left Arm] Pulse Oximetry Oxygen Delivery Method Oxygen Delivery Flow Rate Fraction of Inspired Oxygen 02/28/23 22:50 02/28/23 22:55 02/28/23 23:00 Temperature Pulse Rate 82 58 L 57 L Pulse Rate [Monitor] Respiratory Rate Blood Pressure 125/75 H 119/72 100/59 L Blood Pressure [Left Arm] Pulse Oximetry 100 100 100 Oxygen Delivery Method Oxygen Delivery Flow Rate Fraction of Inspired Oxygen 02/28/23 23:05 02/28/23 23:10 02/28/23 23:15 Temperature Pulse Rate 62 55 L 58 L Pulse Rate [Monitor] Respiratory Rate Blood Pressure 87/53 L 88/56 L 88/58 L Blood Pressure [Left Arm] Pulse Oximetry 99 98 97 Oxygen Delivery Method Oxygen Delivery Flow Rate Fraction of Inspired Oxygen 02/28/23 23:20 02/28/23 23:25 02/28/23 23:30 Temperature Pulse Rate 58 L 58 L 68 Pulse Rate [Monitor] Respiratory Rate Blood Pressure 80/53 L 92/53 L 80/51 L Blood Pressure [Left Arm] Pulse Oximetry 97 97 97 Oxygen Delivery Method Oxygen Delivery Flow Rate Fraction of Inspired Oxygen 02/28/23 23:35 02/28/23 23:40 02/28/23 23:45 Temperature Pulse Rate 58 L 72 58 L Pulse Rate [Monitor] Respiratory Rate Blood Pressure 85/52 L 81/58 L 88/54 L Blood Pressure [Left Arm] Pulse Oximetry 97 98 99 Oxygen Delivery Method Oxygen Delivery Flow Rate Fraction of Inspired Oxygen 02/28/23 23:50 02/28/23 23:55 03/01/23 00:00 Temperature Pulse Rate 60 72 73 Pulse Rate [Monitor] Respiratory Rate Blood Pressure 84/51 L 83/50 L 86/55 L Blood Pressure [Left Arm] Pulse Oximetry 98 98 98 Oxygen Delivery Method Oxygen Delivery Flow Rate Fraction of Inspired Oxygen 03/01/23 00:15 03/01/23 00:15 03/01/23 00:30 Temperature Pulse Rate 67 70 67 Pulse Rate [Monitor] Respiratory Rate Blood Pressure 97/54 L 97/54 L 96/56 L Blood Pressure [Left Arm] Pulse Oximetry 98 98 99 Oxygen Delivery Method Oxygen Delivery Flow Rate Fraction of Inspired Oxygen 03/01/23 00:45 03/01/23 01:00 03/01/23 03:52 Temperature Pulse Rate 67 58 L 58 L Pulse Rate [Monitor] Respiratory Rate 16 Blood Pressure 85/56 L 91/55 L Blood Pressure [Left Arm] Pulse Oximetry 99 99 97 Oxygen Delivery Method Oxygen Delivery Flow Rate Fraction of Inspired Oxygen 40 03/01/23 03:52 03/01/23 04:54 03/01/23 01:15 Temperature Pulse Rate 63 60 Pulse Rate [Monitor] Respiratory Rate Blood Pressure 90/59 L Blood Pressure [Left Arm] Pulse Oximetry 97 98 Oxygen Delivery Method Mechanical Ventilator Oxygen Delivery Flow Rate Fraction of Inspired Oxygen 40 03/01/23 01:30 03/01/23 01:45 03/01/23 02:00 Temperature Pulse Rate 65 58 L 60 Pulse Rate [Monitor] Respiratory Rate Blood Pressure 100/61 98/59 L 93/59 L Blood Pressure [Left Arm] Pulse Oximetry 98 99 98 Oxygen Delivery Method Oxygen Delivery Flow Rate Fraction of Inspired Oxygen 03/01/23 02:15 03/01/23 02:30 03/01/23 02:45 Temperature Pulse Rate 57 L 58 L 57 L Pulse Rate [Monitor] Respiratory Rate Blood Pressure 100/63 101/62 108/64 Blood Pressure [Left Arm] Pulse Oximetry 99 98 98 Oxygen Delivery Method Oxygen Delivery Flow Rate Fraction of Inspired Oxygen 03/01/23 03:00 03/01/23 03:15 03/01/23 03:30 Temperature Pulse Rate 57 L 57 L 57 L Pulse Rate [Monitor] Respiratory Rate Blood Pressure 100/62 109/64 110/65 Blood Pressure [Left Arm] Pulse Oximetry 98 97 97 Oxygen Delivery Method Oxygen Delivery Flow Rate Fraction of Inspired Oxygen 03/01/23 03:45 03/01/23 04:00 03/01/23 04:15 Temperature Pulse Rate 60 58 L 61 Pulse Rate [Monitor] Respiratory Rate Blood Pressure 117/68 115/67 100/58 L Blood Pressure [Left Arm] Pulse Oximetry 96 98 97 Oxygen Delivery Method Oxygen Delivery Flow Rate Fraction of Inspired Oxygen 03/01/23 04:30 03/01/23 04:45 03/01/23 07:43 Temperature Pulse Rate 63 66 65 Pulse Rate [Monitor] Respiratory Rate Blood Pressure 104/61 105/64 Blood Pressure [Left Arm] Pulse Oximetry 97 97 Oxygen Delivery Method Oxygen Delivery Flow Rate Fraction of Inspired Oxygen 03/01/23 07:49 03/01/23 07:49 03/01/23 08:40 Temperature Pulse Rate 61 61 Pulse Rate [Monitor] 72 Respiratory Rate 16 16 16 Blood Pressure Blood Pressure [Left Arm] Pulse Oximetry 97 Oxygen Delivery Method Oxygen Delivery Flow Rate Fraction of Inspired Oxygen 40 03/01/23 08:40 03/01/23 08:48 Temperature 98.4 F Pulse Rate 77 83 Pulse Rate [Monitor] Respiratory Rate 18 Blood Pressure Blood Pressure [Left Arm] 98/59 L Pulse Oximetry 97 Oxygen Delivery Method Trach Collar Oxygen Delivery Flow Rate Fraction of Inspired Oxygen Internal Medicine - CN: Reslt Labs Labs: Short CBC 02/28/23 03/01/23 Range/Units 13:32 04:00 WBC 7.3 5.1 (4.0-11.0) 10^3/uL Hgb 17.0 14.3 (14.0-18.0) g/dL Hct 50.3 41.6 L (42.0-54.0) % Plt Count 186 132 L (150-450) 10^3/uL BMP 02/28/23 02/28/23 02/28/23 13:32 16:20 18:45 Sodium 112 L* 111 L* 114 L* Potassium 5.6 H 5.3 H Chloride 77 L* 81 L* Carbon Dioxide 32.3 H 31.6 BUN 24.0 H 22.0 H Creatinine 1.23 0.97 Glucose 111 H 117 H Calcium 8.6 8.4 L 02/28/23 03/01/23 03/01/23 23:00 04:00 06:48 Sodium 117 L* 106 L* 117 L* Potassium 5.6 H 5.0 5.9 H Chloride 83 L* 75 L* 81 L* Carbon Dioxide 33.7 H 26.2 31.6 BUN 22.0 H 20.0 H 23.0 H Creatinine 1.06 0.97 0.94 Glucose 116 H 550 H* 132 H Calcium 8.1 L 7.1 L 8.2 L Liver Function 02/28/23 03/01/23 Range/Units 13:32 04:00 Total Bilirubin 0.6 0.5 (0.2-1.0) mg/dL AST 46 H 37 (15-37) U/L ALT 53 47 (16-63) U/L Alkaline Phosphatase 94 66 (46-116) U/L Albumin 3.6 2.4 L (3.4-5.0) g/dL Assessment and Plan Assessment and Plan (1) Acute hypercapnic respiratory failure: Assessment and Plan: Supposed to be on CPAP at home, non compliant. P/w COPD exacerbation leading to progressively worsening resp failure eventually ended up requiring invasive mechanical ventilation ABG this morning - acceptable gas exchange. 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 Will order CTA to r/o PE. There is also a possibility of bacterial PNA based on lung exam and this will help make sure there is no consolidation/pneumonia that may not have been visible on CXR. He is currently being treated empirically for it with IV Rocephin/Azithromycin F/u blood/sputum cx. Closely monitor, guarded prognosis. (2) Acute respiratory failure with hypoxia: Assessment and Plan: Due to COPD exacerbation with possibility of PNA. On ventilator now, acceptable oxygenation. CTA pending to r/o PE (3) Hyponatremia: Assessment and Plan: Severe, likely hypovolemic hyponatremia. On gentle IV hydration, slowly improving. BMP q4. (4) Elevated troponin: Assessment and Plan: likely Type 2 demand ischemia due to hypoxia. Unsure if he has prior hx of CAD. 2D ECHO pending. Unable to anticoagulate due to hx of Hemophilia (5) COPD exacerbation: Assessment and Plan: No formal diagnosed previously. But clinically presenting as COPD exacerbation. C/w systemic steroids, inhaled bronchodilators. Monitor. (6) Hypertension: Assessment and Plan: BP borderline low. D/c Lisinopril. 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
[2023-03-01] MEDS: PANTOPRAZOLE SODIUM 40 MG VIAL IV (11:08)
[2023-03-01 11:52] LABS: Anion Gap 10.5; BUN Creatinine Ratio 21.8; Calcium 8.2 mg/dL (8.5-10.1); Carbon Dioxide 30.7 mmol/L (21.0-32.0); Estimated GFR (African America >60 (>=60); Estimated GFR (Non-African Ame 59 (>=60); Glucose 144 mg/dL (74-106); Potassium 5.2 mmol/L (3.5-5.1)
[2023-03-01 11:55] LABS: Sodium 117 mmol/L (136-145)
[2023-03-01 11:56] LABS: Chloride 81 mmol/L (98-107)
[2023-03-01 13:27] LABS: Glucometer 131 mg/dL (74-106)
--- NOTE | 2023-03-01 13:29 | PM.HP ---
H&P: HPI History of Present Illness Chief complaint: SOB Narrative: 82 y/o male with a history of COPD to ER with SOB. Currently on vent and sedated, history obtained from chart and nursing. Increased SOB for several days prior. Severe SOB and chest tightness. Called EMS and found face and hands blue. SpO2 65% on room air. Refused CPAP and placed on NRB. Labs showed sodium 112 and started IV fluids. ABD with elevated CO2. Covid negative. Placed on vapotherm and admitted. Started solu-medrol, zithromax, and DuoNeb. SOB worsened and deteriorated. ER called to intubate. Review of Systems ROS Constitutional Denies: fever or chills Cardiovascular Denies: chest pain or edema Respiratory Reports: shortness of breath, cough and wheezing Gastrointestinal Denies: abdominal pain, nausea, vomiting or diarrhea Genitourinary Denies: painful urination [facility] Medical History Surgical History Social History Smoking status: Current every day smoker Meds Home Medications and Allergies Home Medications Medication Instructions Recorded Confirmed Type lisinopril 40 mg tablet 40 mg PO DAILY 02/28/23 02/28/23 History metoprolol succinate 25 mg 25 mg PO DAILY 02/28/23 02/28/23 History tablet,extended release 24 hr Allergies Allergy/AdvReac Type Severity Reaction Status Date / Time No Known Drug Allergies Allergy Verified 02/28/23 14:41 Exam Constitutional Vital Signs - 24 hr 02/28/23 14:11 02/28/23 14:38 02/28/23 14:40 Temperature 97.8 F Pulse Rate 86 Pulse Rate [Monitor] 97 H Respiratory Rate 42 H 40 H Blood Pressure Blood Pressure [Left Arm] 167/103 H Pulse Oximetry 94 L 98 Oxygen Delivery Method Nasal Cannula Nasal Cannula Oxygen Delivery Flow Rate 4 4 Fraction of Inspired Oxygen 02/28/23 14:10 02/28/23 14:11 02/28/23 14:12 Temperature Pulse Rate 91 H Pulse Rate [Monitor] Respiratory Rate 39 H 49 H Blood Pressure 180/103 H Blood Pressure [Left Arm] Pulse Oximetry 98 97 96 Oxygen Delivery Method Oxygen Delivery Flow Rate Fraction of Inspired Oxygen 02/28/23 14:13 02/28/23 14:15 02/28/23 16:26 Temperature Pulse Rate 78 88 Pulse Rate [Monitor] Respiratory Rate 32 H 36 H Blood Pressure 167/103 H 155/95 H Blood Pressure [Left Arm] Pulse Oximetry 93 L 96 Oxygen Delivery Method Vapotherm Oxygen Delivery Flow Rate 40 Fraction of Inspired Oxygen 60 02/28/23 14:15 02/28/23 16:32 02/28/23 17:26 Temperature Pulse Rate 88 94 H 90 Pulse Rate [Monitor] Respiratory Rate 31 H 19 23 Blood Pressure 155/95 H 144/112 H 156/96 H Blood Pressure [Left Arm] Pulse Oximetry 97 95 92 L Oxygen Delivery Method Oxygen Delivery Flow Rate Fraction of Inspired Oxygen 02/28/23 17:31 02/28/23 18:28 02/28/23 18:42 Temperature 98.6 F Pulse Rate 95 H 94 H Pulse Rate [Monitor] Respiratory Rate 24 32 H Blood Pressure 160/100 H Blood Pressure [Left Arm] 161/93 H Pulse Oximetry 91 L 90 L 92 L Oxygen Delivery Method Nasal Cannula Nasal Cannula Oxygen Delivery Flow Rate 6 6 Fraction of Inspired Oxygen 03/01/23 03:00 03/01/23 03:39 03/01/23 03:39 Temperature 97.9 F 97.8 F Pulse Rate 57 L 58 L Pulse Rate [Monitor] 57 L Respiratory Rate 14 14 Blood Pressure Blood Pressure [Left Arm] 100/62 117/68 Pulse Oximetry 98 97 Oxygen Delivery Method Mechanical Ventilator Mechanical Ventilator Oxygen Delivery Flow Rate Fraction of Inspired Oxygen 40 40 03/01/23 03:39 02/28/23 19:31 02/28/23 19:36 Temperature 98.2 F Pulse Rate 57 L 94 H 94 H Pulse Rate [Monitor] Respiratory Rate 24 Blood Pressure Blood Pressure [Left Arm] 153/112 H Pulse Oximetry 97 97 Oxygen Delivery Method Vapotherm Oxygen Delivery Flow Rate 40 Fraction of Inspired Oxygen 60 02/28/23 19:38 02/28/23 19:43 02/28/23 20:25 Temperature 98.2 F Pulse Rate 85 76 Pulse Rate [Monitor] Respiratory Rate 24 24 Blood Pressure Blood Pressure [Left Arm] 153/112 H Pulse Oximetry 97 100 Oxygen Delivery Method Vapotherm Oxygen Delivery Flow Rate 40 Fraction of Inspired Oxygen 60 40 02/28/23 19:00 02/28/23 20:25 02/28/23 23:07 Temperature 98 F Pulse Rate 56 L Pulse Rate [Monitor] Respiratory Rate Blood Pressure Blood Pressure [Left Arm] 87/53 L Pulse Oximetry 97 100 98 Oxygen Delivery Method Vapotherm BIPAP Mechanical Ventilator Oxygen Delivery Flow Rate 40 Fraction of Inspired Oxygen 60 40 02/28/23 23:25 03/01/23 00:13 03/01/23 00:19 Temperature 98 F Pulse Rate 57 L 66 Pulse Rate [Monitor] 64 Respiratory Rate 16 14 14 Blood Pressure Blood Pressure [Left Arm] 97/54 L Pulse Oximetry 97 98 Oxygen Delivery Method Mechanical Ventilator Oxygen Delivery Flow Rate Fraction of Inspired Oxygen 40 40 03/01/23 00:25 02/28/23 17:31 02/28/23 18:00 Temperature Pulse Rate 69 88 95 H Pulse Rate [Monitor] Respiratory Rate 22 27 H Blood Pressure 160/100 H 166/96 H Blood Pressure [Left Arm] Pulse Oximetry 94 L Oxygen Delivery Method Oxygen Delivery Flow Rate Fraction of Inspired Oxygen 02/28/23 18:08 02/28/23 18:10 02/28/23 18:19 Temperature Pulse Rate 91 H 90 88 Pulse Rate [Monitor] Respiratory Rate 46 H 42 H Blood Pressure 152/87 H Blood Pressure [Left Arm] Pulse Oximetry 92 L Oxygen Delivery Method Oxygen Delivery Flow Rate Fraction of Inspired Oxygen 02/28/23 18:19 02/28/23 18:30 02/28/23 18:37 Temperature Pulse Rate 94 H 91 H 92 H Pulse Rate [Monitor] Respiratory Rate 33 H Blood Pressure 160/97 H 161/93 H Blood Pressure [Left Arm] Pulse Oximetry 83 L 92 L Oxygen Delivery Method Oxygen Delivery Flow Rate Fraction of Inspired Oxygen 02/28/23 18:46 02/28/23 18:50 02/28/23 18:51 Temperature Pulse Rate 98 H 91 H 94 H Pulse Rate [Monitor] Respiratory Rate 48 H Blood Pressure 169/96 H Blood Pressure [Left Arm] Pulse Oximetry 95 97 Oxygen Delivery Method Oxygen Delivery Flow Rate Fraction of Inspired Oxygen 02/28/23 18:51 02/28/23 19:01 02/28/23 19:15 Temperature Pulse Rate 81 92 H 97 H Pulse Rate [Monitor] Respiratory Rate 32 H 31 H 30 H Blood Pressure 163/101 H 160/100 H Blood Pressure [Left Arm] Pulse Oximetry 96 97 98 Oxygen Delivery Method Oxygen Delivery Flow Rate Fraction of Inspired Oxygen 02/28/23 19:32 02/28/23 19:46 02/28/23 20:00 Temperature Pulse Rate 93 H 87 92 H Pulse Rate [Monitor] Respiratory Rate 24 27 H 29 H Blood Pressure 153/112 H 151/106 H 142/91 H Blood Pressure [Left Arm] Pulse Oximetry 98 97 96 Oxygen Delivery Method Oxygen Delivery Flow Rate Fraction of Inspired Oxygen 02/28/23 20:16 02/28/23 20:30 02/28/23 20:45 Temperature Pulse Rate 64 85 60 Pulse Rate [Monitor] Respiratory Rate 18 5 L 5 L Blood Pressure 152/89 H 142/90 H 109/73 Blood Pressure [Left Arm] Pulse Oximetry 100 96 94 L Oxygen Delivery Method Oxygen Delivery Flow Rate Fraction of Inspired Oxygen 02/28/23 21:00 02/28/23 21:15 02/28/23 21:30 Temperature Pulse Rate 79 55 L 54 L Pulse Rate [Monitor] Respiratory Rate 9 L 7 L 7 L Blood Pressure 91/53 L 91/66 81/51 L Blood Pressure [Left Arm] Pulse Oximetry 92 L 94 L 94 L Oxygen Delivery Method Oxygen Delivery Flow Rate Fraction of Inspired Oxygen 02/28/23 21:35 02/28/23 22:00 02/28/23 22:23 Temperature Pulse Rate 55 L 57 L 86 Pulse Rate [Monitor] Respiratory Rate 16 12 16 Blood Pressure 87/50 L 95/58 L 93/55 L Blood Pressure [Left Arm] Pulse Oximetry 94 L 93 L 90 L Oxygen Delivery Method Oxygen Delivery Flow Rate Fraction of Inspired Oxygen 02/28/23 22:25 02/28/23 22:29 02/28/23 22:30 Temperature Pulse Rate 90 90 93 H Pulse Rate [Monitor] Respiratory Rate 24 12 26 H Blood Pressure 100/62 131/82 H 118/78 Blood Pressure [Left Arm] Pulse Oximetry 94 L 96 94 L Oxygen Delivery Method Oxygen Delivery Flow Rate Fraction of Inspired Oxygen 02/28/23 22:35 02/28/23 22:40 02/28/23 22:45 Temperature Pulse Rate 64 87 94 H Pulse Rate [Monitor] Respiratory Rate 21 20 25 H Blood Pressure 130/74 H 119/71 113/71 Blood Pressure [Left Arm] Pulse Oximetry Oxygen Delivery Method Oxygen Delivery Flow Rate Fraction of Inspired Oxygen 02/28/23 22:50 02/28/23 22:55 02/28/23 23:00 Temperature Pulse Rate 82 58 L 57 L Pulse Rate [Monitor] Respiratory Rate Blood Pressure 125/75 H 119/72 100/59 L Blood Pressure [Left Arm] Pulse Oximetry 100 100 100 Oxygen Delivery Method Oxygen Delivery Flow Rate Fraction of Inspired Oxygen 02/28/23 23:05 02/28/23 23:10 02/28/23 23:15 Temperature Pulse Rate 62 55 L 58 L Pulse Rate [Monitor] Respiratory Rate Blood Pressure 87/53 L 88/56 L 88/58 L Blood Pressure [Left Arm] Pulse Oximetry 99 98 97 Oxygen Delivery Method Oxygen Delivery Flow Rate Fraction of Inspired Oxygen 02/28/23 23:20 02/28/23 23:25 02/28/23 23:30 Temperature Pulse Rate 58 L 58 L 68 Pulse Rate [Monitor] Respiratory Rate Blood Pressure 80/53 L 92/53 L 80/51 L Blood Pressure [Left Arm] Pulse Oximetry 97 97 97 Oxygen Delivery Method Oxygen Delivery Flow Rate Fraction of Inspired Oxygen 02/28/23 23:35 02/28/23 23:40 02/28/23 23:45 Temperature Pulse Rate 58 L 72 58 L Pulse Rate [Monitor] Respiratory Rate Blood Pressure 85/52 L 81/58 L 88/54 L Blood Pressure [Left Arm] Pulse Oximetry 97 98 99 Oxygen Delivery Method Oxygen Delivery Flow Rate Fraction of Inspired Oxygen 02/28/23 23:50 02/28/23 23:55 03/01/23 00:00 Temperature Pulse Rate 60 72 73 Pulse Rate [Monitor] Respiratory Rate Blood Pressure 84/51 L 83/50 L 86/55 L Blood Pressure [Left Arm] Pulse Oximetry 98 98 98 Oxygen Delivery Method Oxygen Delivery Flow Rate Fraction of Inspired Oxygen 03/01/23 00:15 03/01/23 00:15 03/01/23 00:30 Temperature Pulse Rate 67 70 67 Pulse Rate [Monitor] Respiratory Rate Blood Pressure 97/54 L 97/54 L 96/56 L Blood Pressure [Left Arm] Pulse Oximetry 98 98 99 Oxygen Delivery Method Oxygen Delivery Flow Rate Fraction of Inspired Oxygen 03/01/23 00:45 03/01/23 01:00 03/01/23 03:52 Temperature Pulse Rate 67 58 L 58 L Pulse Rate [Monitor] Respiratory Rate 16 Blood Pressure 85/56 L 91/55 L Blood Pressure [Left Arm] Pulse Oximetry 99 99 97 Oxygen Delivery Method Oxygen Delivery Flow Rate Fraction of Inspired Oxygen 40 03/01/23 03:52 03/01/23 04:54 03/01/23 01:15 Temperature Pulse Rate 63 60 Pulse Rate [Monitor] Respiratory Rate Blood Pressure 90/59 L Blood Pressure [Left Arm] Pulse Oximetry 97 98 Oxygen Delivery Method Mechanical Ventilator Oxygen Delivery Flow Rate Fraction of Inspired Oxygen 40 03/01/23 01:30 03/01/23 01:45 03/01/23 02:00 Temperature Pulse Rate 65 58 L 60 Pulse Rate [Monitor] Respiratory Rate Blood Pressure 100/61 98/59 L 93/59 L Blood Pressure [Left Arm] Pulse Oximetry 98 99 98 Oxygen Delivery Method Oxygen Delivery Flow Rate Fraction of Inspired Oxygen 03/01/23 02:15 03/01/23 02:30 03/01/23 02:45 Temperature Pulse Rate 57 L 58 L 57 L Pulse Rate [Monitor] Respiratory Rate Blood Pressure 100/63 101/62 108/64 Blood Pressure [Left Arm] Pulse Oximetry 99 98 98 Oxygen Delivery Method Oxygen Delivery Flow Rate Fraction of Inspired Oxygen 03/01/23 03:00 03/01/23 03:15 03/01/23 03:30 Temperature Pulse Rate 57 L 57 L 57 L Pulse Rate [Monitor] Respiratory Rate Blood Pressure 100/62 109/64 110/65 Blood Pressure [Left Arm] Pulse Oximetry 98 97 97 Oxygen Delivery Method Oxygen Delivery Flow Rate Fraction of Inspired Oxygen 03/01/23 03:45 03/01/23 04:00 03/01/23 04:15 Temperature Pulse Rate 60 58 L 61 Pulse Rate [Monitor] Respiratory Rate Blood Pressure 117/68 115/67 100/58 L Blood Pressure [Left Arm] Pulse Oximetry 96 98 97 Oxygen Delivery Method Oxygen Delivery Flow Rate Fraction of Inspired Oxygen 03/01/23 04:30 03/01/23 04:45 03/01/23 07:43 Temperature Pulse Rate 63 66 65 Pulse Rate [Monitor] Respiratory Rate Blood Pressure 104/61 105/64 Blood Pressure [Left Arm] Pulse Oximetry 97 97 Oxygen Delivery Method Oxygen Delivery Flow Rate Fraction of Inspired Oxygen 03/01/23 07:49 03/01/23 07:49 03/01/23 08:40 Temperature Pulse Rate 61 61 Pulse Rate [Monitor] 72 Respiratory Rate 16 16 16 Blood Pressure Blood Pressure [Left Arm] Pulse Oximetry 97 Oxygen Delivery Method Oxygen Delivery Flow Rate Fraction of Inspired Oxygen 40 03/01/23 08:40 03/01/23 08:48 03/01/23 10:57 Temperature 98.4 F Pulse Rate 77 83 70 Pulse Rate [Monitor] Respiratory Rate 18 Blood Pressure Blood Pressure [Left Arm] 98/59 L Pulse Oximetry 97 Oxygen Delivery Method Trach Collar Oxygen Delivery Flow Rate Fraction of Inspired Oxygen 03/01/23 11:06 03/01/23 11:25 03/01/23 12:00 Temperature Pulse Rate 64 Pulse Rate [Monitor] 72 Respiratory Rate 17 16 Blood Pressure Blood Pressure [Left Arm] 118/81 H Pulse Oximetry 99 Oxygen Delivery Method Oxygen Delivery Flow Rate Fraction of Inspired Oxygen 40 03/01/23 12:00 03/01/23 12:00 03/01/23 13:00 Temperature 98.4 F Pulse Rate 73 72 73 Pulse Rate [Monitor] Respiratory Rate Blood Pressure Blood Pressure [Left Arm] 128/16 H Pulse Oximetry Oxygen Delivery Method Oxygen Delivery Flow Rate Fraction of Inspired Oxygen Documenting provider has reviewed patient's vital signs: yes Common normals: no apparent distress Neck & C-Spine Common normals: no lymphadenopathy, supple and no carotid bruits Respiratory Common normals: normal respiratory effort, no use of accessory muscles and clear to auscultation bilaterally Cardio Common normals: regular rate, regular rhythm, no gallops, no murmurs and no rub GI Common normals: Normal to inspection, nondistended, normoactive bowel sounds present and soft to palpation Extremity General: no edema Results Labs Labs: Short CBC 02/28/23 03/01/23 Range/Units 13:32 04:00 WBC 7.3 5.1 (4.0-11.0) 10^3/uL Hgb 17.0 14.3 (14.0-18.0) g/dL Hct 50.3 41.6 L (42.0-54.0) % Plt Count 186 132 L (150-450) 10^3/uL BMP 02/28/23 02/28/23 02/28/23 13:32 16:20 18:45 Sodium 112 L* 111 L* 114 L* Potassium 5.6 H 5.3 H Chloride 77 L* 81 L* Carbon Dioxide 32.3 H 31.6 BUN 24.0 H 22.0 H Creatinine 1.23 0.97 Glucose 111 H 117 H Calcium 8.6 8.4 L 02/28/23 03/01/23 03/01/23 23:00 04:00 06:48 Sodium 117 L* 106 L* 117 L* Potassium 5.6 H 5.0 5.9 H Chloride 83 L* 75 L* 81 L* Carbon Dioxide 33.7 H 26.2 31.6 BUN 22.0 H 20.0 H 23.0 H Creatinine 1.06 0.97 0.94 Glucose 116 H 550 H* 132 H Calcium 8.1 L 7.1 L 8.2 L 03/01/23 11:37 Sodium 117 L* Potassium 5.2 H Chloride 81 L* Carbon Dioxide 30.7 BUN 26.0 H Creatinine 1.19 Glucose 144 H Calcium 8.2 L Liver Function 02/28/23 03/01/23 Range/Units 13:32 04:00 Total Bilirubin 0.6 0.5 (0.2-1.0) mg/dL AST 46 H 37 (15-37) U/L ALT 53 47 (16-63) U/L Alkaline Phosphatase 94 66 (46-116) U/L Albumin 3.6 2.4 L (3.4-5.0) g/dL ABG ABG results: 02/28/23 02/28/23 03/01/23 19:35 20:45 04:10 ABG pH 7.238 L* 7.265 L* 7.398 ABG pCO2 77.3 H* 72.2 H* 52.1 H* ABG pO2 90.6 97.0 76.0 L ABG HCO3 32.9 H 32.7 H 32.2 H ABG O2 Saturation 95.7 96.8 95.7 ABG Base Excess 5.5 H 5.7 H 7.3 H Attestation: I have reviewed the pertinent ABG results. Pulse Oximetry Attestation: I have reviewed the pertinent pulse oximetry results. Assessment and Plan Assessment and Plan (1) Acute hypercapnic respiratory failure: Assessment and Plan: Supposed to be on CPAP at home, non compliant. P/w COPD exacerbation leading to progressively worsening resp failure eventually ended up requiring invasive mechanical ventilation ABG this morning - acceptable gas exchange. 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 Will order CTA to r/o PE. There is also a possibility of bacterial PNA based on lung exam and this will help make sure there is no consolidation/pneumonia that may not have been visible on CXR. He is currently being treated empirically for it with IV Rocephin/Azithromycin F/u blood/sputum cx. Closely monitor, guarded prognosis. (2) Acute respiratory failure with hypoxia: Assessment and Plan: Due to COPD exacerbation with possibility of PNA. On ventilator now, acceptable oxygenation. CTA pending to r/o PE (3) Hyponatremia: Assessment and Plan: Severe, likely hypovolemic hyponatremia. On gentle IV hydration, slowly improving. BMP q4. (4) Elevated troponin: Assessment and Plan: likely Type 2 demand ischemia due to hypoxia. Unsure if he has prior hx of CAD. 2D ECHO pending. Unable to anticoagulate due to hx of Hemophilia (5) COPD exacerbation: Assessment and Plan: No formal diagnosed previously. But clinically presenting as COPD exacerbation. C/w systemic steroids, inhaled bronchodilators. Monitor. (6) Hypertension: Assessment and Plan: BP borderline low. D/c Lisinopril. 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 Acute hypoxic and hypercapnic respiratory failure 2. Acute exacerbation of COPD 3. Hyponatremia 4. HTN 5. Elevated troponin Developed respiratory distress and intubated. Vent management per Internal Medicine. Continue antibiotics, steroids, and breathing treatments. Sodium slightly improved and continue IV fluids. Monitor labs. Resume home medication. Elevated troponin likely related to hypoxia. Anticipate over 2 nights in the hospital.
[2023-03-01 13:55] LABS: Carboxyhemoglobin 2.6 % (1.5-4.9); Methemoglobin ABG <1.0 % (1.1-1.9)
[2023-03-01 13:56] LABS: Carboxyhemoglobin 2.3 % (1.5-4.9); Methemoglobin ABG <1.0 % (1.1-1.9)
[2023-03-01] MEDS: MIDAZOLAM HCL 100 MG in 0.9 % SODIUM CHLORIDE 80 ML IV ×2 (14:31→22:03)
[2023-03-01] MEDS: 0.9 % SODIUM CHLORIDE 1,000 ML 50 ML IV (14:40)
[2023-03-01 15:36] LABS: SARS-CoV-2 NAA NOT DETECTED (NOT DETECTE)
[2023-03-01 17:06] LABS: Glucometer 126 mg/dL (74-106)
[2023-03-01 19:01] LABS: Anion Gap 7.8; BUN Creatinine Ratio 23.5; Calcium 8.1 mg/dL (8.5-10.1); Carbon Dioxide 31.4 mmol/L (21.0-32.0); Estimated GFR (African America >60 (>=60); Estimated GFR (Non-African Ame >60 (>=60); Glucose 132 mg/dL (74-106); Potassium 5.2 mmol/L (3.5-5.1)
[2023-03-01 19:04] LABS: Sodium 117 mmol/L (136-145)
[2023-03-01 19:05] LABS: Chloride 83 mmol/L (98-107)
[2023-03-01] MEDS: CEFTRIAXONE 1,000 MG in 0.9 % SODIUM CHLORIDE 50 ML 100 MG IV (20:19)
[2023-03-01] MEDS: AZITHROMYCIN 500 MG in 0.9 % SODIUM CHLORIDE 250 ML 250 MG IV (22:12)
[2023-03-01 22:33] LABS: Anion Gap 6.6; BUN Creatinine Ratio 22.1; Carbon Dioxide 33.4 mmol/L (21.0-32.0); Estimated GFR (African America >60 (>=60); Estimated GFR (Non-African Ame >60 (>=60); Glucose 148 mg/dL (74-106)
[2023-03-01 22:51] LABS: Sodium 119 mmol/L (136-145)
[2023-03-01 22:52] LABS: Chloride 84 mmol/L (98-107)
[2023-03-02] VITALS (73 sets, daily range): BP systolic 80–145; BP diastolic 51–97; PULSE 72–117; RESP 16–46; O2SAT 83–99
[2023-03-02 02:39] LABS: BUN Creatinine Ratio 22.9; Calcium 7.9 mg/dL (8.5-10.1); Carbon Dioxide 30.7 mmol/L (21.0-32.0); Estimated GFR (African America >60 (>=60); Estimated GFR (Non-African Ame >60 (>=60); Glucose 152 mg/dL (74-106); Potassium 4.8 mmol/L (3.5-5.1)
[2023-03-02 02:45] LABS: Chloride 84 mmol/L (98-107)
[2023-03-02 02:46] LABS: Anion Gap 8.1; Sodium 118 mmol/L (136-145)
[2023-03-02] MEDS: IPRATROPIUM/ALBUTEROL SULFATE 3 ML AMPUL.NEB IH ×6 (03:59→23:53)
[2023-03-02 04:47] LABS: ABG PCO2 49.4 mmHg (35.0-45.0); PO2 ABG 77.4 mmHg (80.0-100.0); pH ABG 7.431 (7.350-7.450)
[2023-03-02 04:48] LABS: Allen Test POSITIVE (POSITIVE); Base Excess ABG 8.5 mmol/L (-2.0-2.0); Fractionated Inspired Oxygen 40 %; HCO3 ABG 32.8 mmol/L (22.0-26.0); O2 Mode VENTILATOR; Oxygen Saturation ABG 94.7 %
[2023-03-02 04:49] LABS: Puncture Site L RADIAL; Rate 16; Tidal Volume 500; Vent Mode A/C
--- NOTE | 2023-03-02 05:00 | XR_ITS ---
[address] [address] Patient Name: ELIDA JERONIMO MRN: [id number] date: 1940 Sex: M Assigned Patient Location: ICU Current Patient Location: ICU Accession/Order Number: [id number] Exam Date: 03/02/2023 06:00 Report Date: 03/02/2023 08:21 At the request of: SHAIKH ROMAN Procedure: XR chest 1V Exam: Radiographs: XR chest 1V Reason for exam: Respiratory failure, intubated Comparison: CT scan from yesterday IMPRESSION: Atelectasis and/or infiltrate in the right lower lung. Small right pleural effusion. ETT with tip in the lower thoracic trachea. Right PICC with tip near the SVC/RA junction. Remainder the chest is unremarkable. Electronically authenticated by: CIERRA OLIVAREZ Date: 03/02/2023 08:21
--- NOTE | 2023-03-02 05:34 | RESP.RT ---
in-line suctioned
[2023-03-02] MEDS: METHYLPREDNISOLONE SOD SUCC PF 40 MG/ML VIAL IVP ×3 (06:17→21:26)
[2023-03-02 06:56] LABS: Eosinophils Percent Auto 0.1 % (0.9-7.0); Hematocrit 44.5 % (42.0-54.0); Hemoglobin 15.2 g/dL (14.0-18.0); Immature Granulocytes Abs Auto 0.04 10^3/uL (0.00-0.03); Immature Granulocytes Pct Auto 0.6 % (0.0-0.5); Lymphocytes Absolute Auto 0.2 10^3/uL (1.2-3.8); Lymphocytes Percent Auto 2.4 % (20.5-60.0); Mean Corpuscular HGB Conc 34.2 g/dL (29.9-35.2); Mean Corpuscular Hemoglobin 32.5 pg (25.9-34.0); Mean Corpuscular Volume 95.1 fL (80.0-94.0); Mean Platelet Volume 8.8 fL (9.5-13.5); Monocytes Absolute Auto 0.3 10^3/uL (0.3-0.8); Monocytes Percent Auto 3.7 % (1.7-12.0); Neutrophils Absolute Auto 6.7 10^3/uL (1.4-6.5); Neutrophils Percent Auto 93.2 % (43.0-75.0); Platelet Count 154 10^3/uL (150-450); Red Blood Count 4.68 10^6/uL (4.70-6.10); Red Cell Distribution Width 12.3 % (11.0-15.0); White Blood Count 7.2 10^3/uL (4.0-11.0)
[2023-03-02 07:08] LABS: Alanine Aminotransferase 46 U/L (16-63); Albumin Globulin Ratio 0.9; Albumin Level 2.5 g/dL (3.4-5.0); Alkaline Phosphatase 67 U/L (46-116); Anion Gap 6.7; Aspartate Amino Transferase 32 U/L (15-37); BUN Creatinine Ratio 26.8; Bilirubin Total 0.5 mg/dL (0.2-1.0); Calcium 7.9 mg/dL (8.5-10.1); Carbon Dioxide 32.7 mmol/L (21.0-32.0); Chloride 86 mmol/L (98-107); Estimated GFR (African America >60 (>=60); Estimated GFR (Non-African Ame >60 (>=60); Globulin 2.9 g/dL; Glucose 140 mg/dL (74-106); Potassium 4.4 mmol/L (3.5-5.1); Total Protein 5.4 g/dL (6.4-8.2)
[2023-03-02 07:12] LABS: Sodium 121 mmol/L (136-145)
[2023-03-02 08:50] LABS: Glucometer 152 mg/dL (74-106)
[2023-03-02] MEDS: 0.9 % SODIUM CHLORIDE 1,000 ML 50 ML IV (10:23)
[2023-03-02] MEDS: PANTOPRAZOLE SODIUM 40 MG VIAL IV (10:23)
[2023-03-02] MEDS: MIDAZOLAM HCL 100 MG in 0.9 % SODIUM CHLORIDE 80 ML IV (12:30)
[2023-03-02 12:36] LABS: Glucometer 121 mg/dL (74-106)
--- NOTE | 2023-03-02 13:55 | PM.PN ---
Progress Note: Subjective Subjective Interval history: Remains on vent and sedated. ABG improved and vitals stable. Afebrile. reports starting to respond and not head to questions. Labs slowly improving. Exam Constitutional Vital Signs - 24 hr 03/01/23 14:17 03/01/23 16:15 03/01/23 16:15 Temperature Pulse Rate 71 71 71 Pulse Rate [Monitor] Respiratory Rate 16 Blood Pressure Blood Pressure [Left Arm] Pulse Oximetry 95 Oxygen Delivery Method Oxygen Delivery Flow Rate Fraction of Inspired Oxygen 40 03/01/23 16:33 03/01/23 14:00 03/01/23 14:15 Temperature Pulse Rate 76 75 66 Pulse Rate [Monitor] Respiratory Rate Blood Pressure 124/68 H 127/77 H Blood Pressure [Left Arm] Pulse Oximetry 96 95 Oxygen Delivery Method Oxygen Delivery Flow Rate Fraction of Inspired Oxygen 03/01/23 14:30 03/01/23 14:45 03/01/23 15:00 Temperature Pulse Rate 73 70 72 Pulse Rate [Monitor] Respiratory Rate Blood Pressure 123/74 H 120/74 H 118/80 H Blood Pressure [Left Arm] Pulse Oximetry 95 95 95 Oxygen Delivery Method Oxygen Delivery Flow Rate Fraction of Inspired Oxygen 03/01/23 15:15 03/01/23 15:30 03/01/23 16:03 Temperature Pulse Rate 69 67 Pulse Rate [Monitor] Respiratory Rate Blood Pressure 117/75 114/79 Blood Pressure [Left Arm] Pulse Oximetry 95 Oxygen Delivery Method Oxygen Delivery Flow Rate Fraction of Inspired Oxygen 03/01/23 16:09 03/01/23 16:09 03/01/23 16:09 Temperature Pulse Rate 81 74 73 Pulse Rate [Monitor] Respiratory Rate Blood Pressure 98/66 98/66 Blood Pressure [Left Arm] Pulse Oximetry 98 100 99 Oxygen Delivery Method Oxygen Delivery Flow Rate Fraction of Inspired Oxygen 03/01/23 16:16 03/01/23 16:30 03/01/23 18:50 Temperature Pulse Rate 80 78 71 Pulse Rate [Monitor] Respiratory Rate Blood Pressure 108/62 102/62 Blood Pressure [Left Arm] Pulse Oximetry 96 94 L Oxygen Delivery Method Oxygen Delivery Flow Rate Fraction of Inspired Oxygen 03/01/23 20:15 03/01/23 20:15 03/01/23 20:00 Temperature Pulse Rate 72 77 Pulse Rate [Monitor] Respiratory Rate 16 Blood Pressure Blood Pressure [Left Arm] Pulse Oximetry 94 L 94 L 93 L Oxygen Delivery Method Mechanical Ventilator Oxygen Delivery Flow Rate Fraction of Inspired Oxygen 40 40 03/01/23 20:00 03/01/23 23:59 03/01/23 23:59 Temperature 98.2 F Pulse Rate 73 87 87 Pulse Rate [Monitor] Respiratory Rate 16 16 16 Blood Pressure Blood Pressure [Left Arm] 103/64 Pulse Oximetry 93 L 98 98 Oxygen Delivery Method Mechanical Ventilator Mechanical Ventilator Oxygen Delivery Flow Rate Fraction of Inspired Oxygen 40 40 40 03/01/23 23:00 03/01/23 23:00 03/01/23 16:30 Temperature Pulse Rate 92 H 76 Pulse Rate [Monitor] 91 H Respiratory Rate 16 Blood Pressure 102/62 Blood Pressure [Left Arm] Pulse Oximetry 93 L Oxygen Delivery Method Oxygen Delivery Flow Rate Fraction of Inspired Oxygen 03/01/23 16:45 03/01/23 17:00 03/01/23 17:15 Temperature Pulse Rate 76 75 73 Pulse Rate [Monitor] Respiratory Rate Blood Pressure 104/57 L 103/61 101/65 Blood Pressure [Left Arm] Pulse Oximetry 91 L 91 L 91 L Oxygen Delivery Method Oxygen Delivery Flow Rate Fraction of Inspired Oxygen 03/01/23 17:30 03/01/23 17:45 03/01/23 18:00 Temperature Pulse Rate 73 77 73 Pulse Rate [Monitor] Respiratory Rate Blood Pressure 102/65 101/65 99/62 Blood Pressure [Left Arm] Pulse Oximetry 91 L 92 L 93 L Oxygen Delivery Method Oxygen Delivery Flow Rate Fraction of Inspired Oxygen 03/01/23 18:15 03/01/23 18:30 03/01/23 18:46 Temperature Pulse Rate 70 74 71 Pulse Rate [Monitor] Respiratory Rate Blood Pressure 103/67 107/65 124/64 H Blood Pressure [Left Arm] Pulse Oximetry 91 L 97 98 Oxygen Delivery Method Oxygen Delivery Flow Rate Fraction of Inspired Oxygen 03/01/23 19:00 03/01/23 19:15 03/01/23 19:30 Temperature Pulse Rate 70 75 72 Pulse Rate [Monitor] Respiratory Rate Blood Pressure 114/68 111/61 106/63 Blood Pressure [Left Arm] Pulse Oximetry 93 L 91 L 92 L Oxygen Delivery Method Oxygen Delivery Flow Rate Fraction of Inspired Oxygen 03/01/23 19:45 03/01/23 20:00 03/01/23 20:30 Temperature Pulse Rate 75 73 82 Pulse Rate [Monitor] Respiratory Rate Blood Pressure 107/60 103/64 109/65 Blood Pressure [Left Arm] Pulse Oximetry 92 L 93 L 92 L Oxygen Delivery Method Oxygen Delivery Flow Rate Fraction of Inspired Oxygen 03/01/23 21:00 03/01/23 21:30 03/01/23 22:01 Temperature Pulse Rate 89 89 90 Pulse Rate [Monitor] Respiratory Rate Blood Pressure 97/59 L 103/77 115/71 Blood Pressure [Left Arm] Pulse Oximetry 91 L 97 97 Oxygen Delivery Method Oxygen Delivery Flow Rate Fraction of Inspired Oxygen 03/01/23 22:30 03/01/23 23:00 03/01/23 23:30 Temperature Pulse Rate 84 86 90 Pulse Rate [Monitor] Respiratory Rate 16 16 Blood Pressure 97/60 87/62 L 92/58 L Blood Pressure [Left Arm] Pulse Oximetry 95 98 98 Oxygen Delivery Method Oxygen Delivery Flow Rate Fraction of Inspired Oxygen 40 40 03/02/23 00:00 03/02/23 02:00 03/02/23 04:00 Temperature Pulse Rate 94 H 80 Pulse Rate [Monitor] 79 Respiratory Rate 16 16 Blood Pressure 99/52 L Blood Pressure [Left Arm] Pulse Oximetry 98 98 Oxygen Delivery Method Oxygen Delivery Flow Rate Fraction of Inspired Oxygen 40 03/02/23 04:00 03/02/23 00:00 03/02/23 00:30 Temperature Pulse Rate 80 88 90 Pulse Rate [Monitor] Respiratory Rate Blood Pressure 99/52 L 91/60 Blood Pressure [Left Arm] Pulse Oximetry 97 97 Oxygen Delivery Method Oxygen Delivery Flow Rate Fraction of Inspired Oxygen 03/02/23 01:00 03/02/23 01:30 03/02/23 02:00 Temperature Pulse Rate 84 85 88 Pulse Rate [Monitor] Respiratory Rate Blood Pressure 101/55 L 98/57 L 97/62 Blood Pressure [Left Arm] Pulse Oximetry 97 97 Oxygen Delivery Method Oxygen Delivery Flow Rate Fraction of Inspired Oxygen 03/02/23 02:32 03/02/23 03:00 03/02/23 03:30 Temperature Pulse Rate 79 77 77 Pulse Rate [Monitor] Respiratory Rate Blood Pressure 109/72 91/55 L 97/62 Blood Pressure [Left Arm] Pulse Oximetry 98 98 98 Oxygen Delivery Method Oxygen Delivery Flow Rate Fraction of Inspired Oxygen 03/02/23 04:00 03/02/23 04:30 03/02/23 04:30 Temperature Pulse Rate 81 81 78 Pulse Rate [Monitor] Respiratory Rate Blood Pressure 102/59 L 100/51 L 100/51 L Blood Pressure [Left Arm] Pulse Oximetry 97 97 97 Oxygen Delivery Method Oxygen Delivery Flow Rate Fraction of Inspired Oxygen 40 03/02/23 05:00 03/02/23 03:59 03/02/23 03:59 Temperature Pulse Rate 79 82 82 Pulse Rate [Monitor] Respiratory Rate 16 16 Blood Pressure 101/58 L Blood Pressure [Left Arm] Pulse Oximetry 97 98 98 Oxygen Delivery Method Mechanical Ventilator Oxygen Delivery Flow Rate Fraction of Inspired Oxygen 40 40 03/02/23 06:00 03/02/23 05:00 03/02/23 05:30 Temperature Pulse Rate 72 90 82 Pulse Rate [Monitor] Respiratory Rate Blood Pressure 101/58 L 98/58 L Blood Pressure [Left Arm] Pulse Oximetry 97 97 Oxygen Delivery Method Oxygen Delivery Flow Rate Fraction of Inspired Oxygen 40 40 03/02/23 06:00 03/02/23 06:31 03/02/23 06:31 Temperature Pulse Rate 89 83 83 Pulse Rate [Monitor] Respiratory Rate Blood Pressure 101/60 128/86 H 128/86 H Blood Pressure [Left Arm] Pulse Oximetry 96 97 97 Oxygen Delivery Method Oxygen Delivery Flow Rate 40 Fraction of Inspired Oxygen 40 03/02/23 07:00 03/02/23 07:34 03/02/23 07:34 Temperature Pulse Rate 79 82 79 Pulse Rate [Monitor] Respiratory Rate 16 16 Blood Pressure 90/53 L Blood Pressure [Left Arm] Pulse Oximetry 97 97 97 Oxygen Delivery Method Mechanical Ventilator Oxygen Delivery Flow Rate Fraction of Inspired Oxygen 40 40 03/02/23 08:11 03/02/23 08:37 03/02/23 08:39 Temperature Pulse Rate 77 90 Pulse Rate [Monitor] 83 Respiratory Rate 16 Blood Pressure Blood Pressure [Left Arm] Pulse Oximetry Oxygen Delivery Method Oxygen Delivery Flow Rate Fraction of Inspired Oxygen 03/02/23 10:19 03/02/23 07:00 03/02/23 07:30 Temperature Pulse Rate 86 90 79 Pulse Rate [Monitor] Respiratory Rate Blood Pressure 107/77 88/58 L Blood Pressure [Left Arm] Pulse Oximetry 97 97 Oxygen Delivery Method Oxygen Delivery Flow Rate Fraction of Inspired Oxygen 03/02/23 08:00 03/02/23 08:30 03/02/23 09:01 Temperature Pulse Rate 77 83 83 Pulse Rate [Monitor] Respiratory Rate Blood Pressure 111/63 117/67 126/77 H Blood Pressure [Left Arm] Pulse Oximetry 98 98 98 Oxygen Delivery Method Oxygen Delivery Flow Rate Fraction of Inspired Oxygen 03/02/23 09:30 03/02/23 10:02 03/02/23 10:10 Temperature Pulse Rate 83 86 86 Pulse Rate [Monitor] Respiratory Rate Blood Pressure 130/78 H Blood Pressure [Left Arm] Pulse Oximetry 98 98 98 Oxygen Delivery Method Oxygen Delivery Flow Rate Fraction of Inspired Oxygen 03/02/23 10:20 03/02/23 10:22 03/02/23 10:22 Temperature Pulse Rate 80 86 87 Pulse Rate [Monitor] Respiratory Rate Blood Pressure 80/66 L Blood Pressure [Left Arm] Pulse Oximetry 98 99 99 Oxygen Delivery Method Oxygen Delivery Flow Rate Fraction of Inspired Oxygen 03/02/23 10:31 03/02/23 11:01 03/02/23 11:32 Temperature Pulse Rate 80 99 H 96 H Pulse Rate [Monitor] Respiratory Rate Blood Pressure 130/72 H 124/69 H Blood Pressure [Left Arm] Pulse Oximetry 98 98 97 Oxygen Delivery Method Oxygen Delivery Flow Rate Fraction of Inspired Oxygen 03/02/23 11:25 03/02/23 12:00 03/02/23 11:40 Temperature Pulse Rate 92 H 107 H 92 H Pulse Rate [Monitor] Respiratory Rate 16 Blood Pressure 131/55 H Blood Pressure [Left Arm] Pulse Oximetry 97 97 Oxygen Delivery Method Oxygen Delivery Flow Rate Fraction of Inspired Oxygen 40 03/02/23 11:40 03/02/23 12:01 03/02/23 12:32 Temperature Pulse Rate 88 101 H 100 H Pulse Rate [Monitor] Respiratory Rate Blood Pressure 85/65 L 145/60 H Blood Pressure [Left Arm] Pulse Oximetry 97 97 96 Oxygen Delivery Method Oxygen Delivery Flow Rate Fraction of Inspired Oxygen 03/02/23 13:01 03/02/23 12:55 Temperature Pulse Rate 112 H Pulse Rate [Monitor] Respiratory Rate 36 H Blood Pressure 125/59 H Blood Pressure [Left Arm] Pulse Oximetry 98 Oxygen Delivery Method Oxygen Delivery Flow Rate Fraction of Inspired Oxygen 40 Documenting provider has reviewed patient's vital signs: yes HENAK Common normals: normocephalic Respiratory Common normals: normal respiratory effort and clear to auscultation bilaterally Cardio Common normals: regular rate, regular rhythm, no gallops, no murmurs and no rub GI Common normals: Normal to inspection, nondistended, normoactive bowel sounds present and non-tender Extremity General: no edema Progress Note: Objective Labs Labs: Short CBC 03/02/23 Range/Units 06:47 WBC 7.2 (4.0-11.0) 10^3/uL Hgb 15.2 (14.0-18.0) g/dL Hct 44.5 (42.0-54.0) % Plt Count 154 (150-450) 10^3/uL BMP 03/01/23 03/01/23 03/02/23 18:43 22:16 02:25 Sodium 117 L* 119 L* 118 L* Potassium 5.2 H 5.0 4.8 Chloride 83 L* 84 L* 84 L* Carbon Dioxide 31.4 33.4 H 30.7 BUN 23.0 H 23.0 H 24.0 H Creatinine 0.98 1.04 1.05 Glucose 132 H 148 H 152 H Calcium 8.1 L 8.0 L 7.9 L 03/02/23 06:47 Sodium 121 L* Potassium 4.4 Chloride 86 L Carbon Dioxide 32.7 H BUN 22.0 H Creatinine 0.82 Glucose 140 H Calcium 7.9 L Liver Function 03/02/23 Range/Units 06:47 Total Bilirubin 0.5 (0.2-1.0) mg/dL AST 32 (15-37) U/L ALT 46 (16-63) U/L Alkaline Phosphatase 67 (46-116) U/L Albumin 2.5 L (3.4-5.0) g/dL Progress Note: A&P Assessment and Plan (1) Acute hypercapnic respiratory failure: (2) Acute respiratory failure with hypoxia: (3) Hyponatremia: (4) Elevated troponin: (5) COPD exacerbation: (6) Hypertension: (7) Acquired hemophilia A: (8) H/O deep venous thrombosis: Plan 1. Acute hypoxic and hypercapnic respiratory failure? 2. Acute exacerbation of COPD? 3. Hyponatremia? 4. HTN? 5. Elevated troponin Remains on vent and management per Internal Medicine.? Continue antibiotics, steroids, and breathing treatments.? Sodium slightly improved and continue IV fluids.? Monitor labs.?
[2023-03-02 14:39] LABS: PO2 ABG 89.3 mmHg (80.0-100.0); pH ABG 7.305 (7.350-7.450)
[2023-03-02 14:40] LABS: Allen Test POS (POSITIVE); BIPAP Pressure 16/8; Base Excess ABG 7.8 mmol/L (-2.0-2.0); Fractionated Inspired Oxygen 40 %; HCO3 ABG 34.1 mmol/L (22.0-26.0); O2 Mode BIPAP; Oxygen Saturation ABG 95.8 %; Puncture Site RIGHT RADIAL
[2023-03-02 14:41] LABS: ABG PCO2 68.5 mmHg (35.0-45.0)
--- NOTE | 2023-03-02 14:53 | PC.NURSE ---
Dr. Paulino called for update, advised to change Bipap settings to 18/6 and titrate 02 as tolerated. Repeat ABG in 1 hour.
[2023-03-02 15:07] LABS: Sodium Urine Random 5 mmol/L (30-90)
[2023-03-02 16:29] LABS: pH ABG 7.369 (7.350-7.450)
[2023-03-02 16:30] LABS: ABG PCO2 57.9 mmHg (35.0-45.0); Base Excess ABG 8 mmol/L (-2.0-2.0); HCO3 ABG 33.3 mmol/L (22.0-26.0); Oxygen Saturation ABG 92.7 %; PO2 ABG 70.4 mmHg (80.0-100.0)
[2023-03-02 16:31] LABS: BIPAP Pressure 18/6; Fractionated Inspired Oxygen 35 %; O2 Mode BIPAP; Puncture Site RR
[2023-03-02 16:31] LABS: Glucometer 163 mg/dL (74-106)
[2023-03-02] MEDS: CEFTRIAXONE 1,000 MG in 0.9 % SODIUM CHLORIDE 50 ML 100 MG IV (21:23)
[2023-03-02] MEDS: NICOTINE 21 MG PATCH.TD24 TD (21:25)
[2023-03-02 21:51] LABS: Glucometer 117 mg/dL (74-106)
--- NOTE | 2023-03-02 21:55 | PM.IMPN1 ---
Progress Note: A&P Assessment and Plan (1) Acute hypercapnic respiratory failure: Assessment and Plan: sec to COPD exacerbation. Extubated today. Subsequent ABGs post extubation on BIPAP required showed worsening resp acidosis and hypercapnia. BIPAP settings changed and now on 16/02 - repeat ABG shows improvement. Patient requires treatment of underlying COPD exacerbation. Needs to use BIPAP while awake and qhs until underlying acute resp illness improves/resolves. Avoid narcoticss/sedatives (2) Acute respiratory failure with hypoxia: Assessment and Plan: due to COPD exacerbation. Was empirically treated for CAP also, but no evidence of it on CTA. Can c/s rocephin. C/w Azithromycin for its anti inflammatory effect in COPD exacerbation. Wean off O2 and BIPAP as tolerated. (3) Hyponatremia: Assessment and Plan: Slowly improving. Closely monitor. C/w gentla IV hydration (4) Single subsegmental pulmonary embolism without acute cor pulmonale: Assessment and Plan: Possible artifact. Even if there was truly a small sub segmental PE - it would not be expected to cause patient's current respiratory illness. 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 (5) Elevated troponin: Assessment and Plan: likely T2 demand ischemia. WIll need outpatient w/u ECHO pending (6) COPD exacerbation: Assessment and Plan: C/w duonebs, systemic steroids. 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 not on DVT px because of it. (9) H/O deep venous thrombosis: Assessment and Plan: Prior hx of DVT s/p IVC filter placement Plan Will sign off. Patient extubated today and currently on BIPAP. Needs continued inpatient hospital stay for respiratory failure and will need close monitoring Internal Medicine - PN: Subj Subjective Interval history: No events overnight. Sodium slowly improving. Morning ABGs with acceptable gas exchange. Exam Constitutional Vital Signs - 24 hr 03/01/23 23:59 03/01/23 23:59 03/01/23 23:00 Pulse Rate 87 87 Pulse Rate [Monitor] 91 H Respiratory Rate 16 16 16 Blood Pressure Pulse Oximetry 98 98 Oxygen Delivery Method Mechanical Ventilator Oxygen Delivery Flow Rate Fraction of Inspired Oxygen 40 40 03/01/23 23:00 03/01/23 22:01 03/01/23 22:30 Pulse Rate 92 H 90 84 Pulse Rate [Monitor] Respiratory Rate Blood Pressure 115/71 97/60 Pulse Oximetry 97 95 Oxygen Delivery Method Oxygen Delivery Flow Rate Fraction of Inspired Oxygen 03/01/23 23:00 03/01/23 23:30 03/02/23 00:00 Pulse Rate 86 90 94 H Pulse Rate [Monitor] Respiratory Rate 16 16 16 Blood Pressure 87/62 L 92/58 L 99/52 L Pulse Oximetry 98 98 98 Oxygen Delivery Method Oxygen Delivery Flow Rate Fraction of Inspired Oxygen 40 40 40 03/02/23 02:00 03/02/23 04:00 03/02/23 04:00 Pulse Rate 80 80 Pulse Rate [Monitor] 79 Respiratory Rate 16 Blood Pressure Pulse Oximetry 98 Oxygen Delivery Method Oxygen Delivery Flow Rate Fraction of Inspired Oxygen 03/02/23 00:00 03/02/23 00:30 03/02/23 01:00 Pulse Rate 88 90 84 Pulse Rate [Monitor] Respiratory Rate Blood Pressure 99/52 L 91/60 101/55 L Pulse Oximetry 97 97 97 Oxygen Delivery Method Oxygen Delivery Flow Rate Fraction of Inspired Oxygen 03/02/23 01:30 03/02/23 02:00 03/02/23 02:32 Pulse Rate 85 88 79 Pulse Rate [Monitor] Respiratory Rate Blood Pressure 98/57 L 97/62 109/72 Pulse Oximetry 97 98 Oxygen Delivery Method Oxygen Delivery Flow Rate Fraction of Inspired Oxygen 03/02/23 03:00 03/02/23 03:30 03/02/23 04:00 Pulse Rate 77 77 81 Pulse Rate [Monitor] Respiratory Rate Blood Pressure 91/55 L 97/62 102/59 L Pulse Oximetry 98 98 97 Oxygen Delivery Method Oxygen Delivery Flow Rate Fraction of Inspired Oxygen 03/02/23 04:30 03/02/23 04:30 03/02/23 05:00 Pulse Rate 81 78 79 Pulse Rate [Monitor] Respiratory Rate Blood Pressure 100/51 L 100/51 L 101/58 L Pulse Oximetry 97 97 97 Oxygen Delivery Method Oxygen Delivery Flow Rate Fraction of Inspired Oxygen 40 03/02/23 03:59 03/02/23 03:59 03/02/23 06:00 Pulse Rate 82 82 72 Pulse Rate [Monitor] Respiratory Rate 16 16 Blood Pressure Pulse Oximetry 98 98 Oxygen Delivery Method Mechanical Ventilator Oxygen Delivery Flow Rate Fraction of Inspired Oxygen 40 40 03/02/23 05:00 03/02/23 05:30 03/02/23 06:00 Pulse Rate 90 82 89 Pulse Rate [Monitor] Respiratory Rate Blood Pressure 101/58 L 98/58 L 101/60 Pulse Oximetry 97 97 96 Oxygen Delivery Method Oxygen Delivery Flow Rate 40 Fraction of Inspired Oxygen 40 40 03/02/23 06:31 03/02/23 06:31 03/02/23 07:00 Pulse Rate 83 83 79 Pulse Rate [Monitor] Respiratory Rate Blood Pressure 128/86 H 128/86 H 90/53 L Pulse Oximetry 97 97 97 Oxygen Delivery Method Oxygen Delivery Flow Rate Fraction of Inspired Oxygen 40 03/02/23 07:34 03/02/23 07:34 03/02/23 08:11 Pulse Rate 82 79 77 Pulse Rate [Monitor] Respiratory Rate 16 16 Blood Pressure Pulse Oximetry 97 97 Oxygen Delivery Method Mechanical Ventilator Oxygen Delivery Flow Rate Fraction of Inspired Oxygen 40 40 03/02/23 08:37 03/02/23 08:39 03/02/23 10:19 Pulse Rate 90 86 Pulse Rate [Monitor] 83 Respiratory Rate 16 Blood Pressure Pulse Oximetry Oxygen Delivery Method Oxygen Delivery Flow Rate Fraction of Inspired Oxygen 03/02/23 07:00 03/02/23 07:30 03/02/23 08:00 Pulse Rate 90 79 77 Pulse Rate [Monitor] Respiratory Rate Blood Pressure 107/77 88/58 L 111/63 Pulse Oximetry 97 97 98 Oxygen Delivery Method Oxygen Delivery Flow Rate Fraction of Inspired Oxygen 03/02/23 08:30 03/02/23 09:01 03/02/23 09:30 Pulse Rate 83 83 83 Pulse Rate [Monitor] Respiratory Rate Blood Pressure 117/67 126/77 H 130/78 H Pulse Oximetry 98 98 98 Oxygen Delivery Method Oxygen Delivery Flow Rate Fraction of Inspired Oxygen 03/02/23 10:02 03/02/23 10:10 03/02/23 10:20 Pulse Rate 86 86 80 Pulse Rate [Monitor] Respiratory Rate Blood Pressure Pulse Oximetry 98 98 98 Oxygen Delivery Method Oxygen Delivery Flow Rate Fraction of Inspired Oxygen 03/02/23 10:22 03/02/23 10:22 03/02/23 10:31 Pulse Rate 86 87 80 Pulse Rate [Monitor] Respiratory Rate Blood Pressure 80/66 L 130/72 H Pulse Oximetry 99 99 98 Oxygen Delivery Method Oxygen Delivery Flow Rate Fraction of Inspired Oxygen 03/02/23 11:01 03/02/23 11:32 03/02/23 11:25 Pulse Rate 99 H 96 H 92 H Pulse Rate [Monitor] Respiratory Rate 16 Blood Pressure 124/69 H Pulse Oximetry 98 97 97 Oxygen Delivery Method Oxygen Delivery Flow Rate Fraction of Inspired Oxygen 40 03/02/23 12:00 03/02/23 11:40 03/02/23 11:40 Pulse Rate 107 H 92 H 88 Pulse Rate [Monitor] Respiratory Rate Blood Pressure 131/55 H Pulse Oximetry 97 97 Oxygen Delivery Method Oxygen Delivery Flow Rate Fraction of Inspired Oxygen 03/02/23 12:01 03/02/23 12:32 03/02/23 13:01 Pulse Rate 101 H 100 H 112 H Pulse Rate [Monitor] Respiratory Rate Blood Pressure 85/65 L 145/60 H 125/59 H Pulse Oximetry 97 96 98 Oxygen Delivery Method Oxygen Delivery Flow Rate Fraction of Inspired Oxygen 03/02/23 12:55 03/02/23 13:25 03/02/23 14:28 Pulse Rate 98 H Pulse Rate [Monitor] Respiratory Rate 36 H Blood Pressure Pulse Oximetry 96 Oxygen Delivery Method Oxygen Delivery Flow Rate Fraction of Inspired Oxygen 40 40 03/02/23 15:17 03/02/23 15:17 03/02/23 13:01 Pulse Rate 100 H 110 H Pulse Rate [Monitor] Respiratory Rate 28 H 22 Blood Pressure 125/59 H Pulse Oximetry 97 97 97 Oxygen Delivery Method BIPAP Oxygen Delivery Flow Rate 40 Fraction of Inspired Oxygen 40 40 35 03/02/23 13:31 03/02/23 14:00 03/02/23 14:30 Pulse Rate 102 H 92 H 95 H Pulse Rate [Monitor] Respiratory Rate Blood Pressure 109/80 H 111/79 102/63 Pulse Oximetry 96 97 96 Oxygen Delivery Method Oxygen Delivery Flow Rate Fraction of Inspired Oxygen 03/02/23 15:00 03/02/23 15:30 03/02/23 16:45 Pulse Rate 95 H 87 Pulse Rate [Monitor] 93 H Respiratory Rate 23 Blood Pressure 115/70 119/68 Pulse Oximetry 96 95 Oxygen Delivery Method Oxygen Delivery Flow Rate Fraction of Inspired Oxygen 03/02/23 16:53 03/02/23 18:14 03/02/23 19:40 Pulse Rate 87 106 H Pulse Rate [Monitor] 105 H Respiratory Rate 16 Blood Pressure Pulse Oximetry Oxygen Delivery Method Oxygen Delivery Flow Rate Fraction of Inspired Oxygen 03/02/23 20:00 03/02/23 20:02 03/02/23 20:02 Pulse Rate 112 H 105 H Pulse Rate [Monitor] Respiratory Rate 32 H Blood Pressure Pulse Oximetry 90 L 90 L Oxygen Delivery Method Nasal Cannula Nasal Cannula Oxygen Delivery Flow Rate 4 4 Fraction of Inspired Oxygen 03/02/23 15:30 03/02/23 16:01 03/02/23 16:31 Pulse Rate 89 86 Pulse Rate [Monitor] Respiratory Rate Blood Pressure 119/68 98/78 135/71 H Pulse Oximetry 95 93 L Oxygen Delivery Method Oxygen Delivery Flow Rate Fraction of Inspired Oxygen 03/02/23 17:01 03/02/23 17:32 03/02/23 17:40 Pulse Rate 108 H 113 H 106 H Pulse Rate [Monitor] Respiratory Rate Blood Pressure 122/94 H Pulse Oximetry 94 L Oxygen Delivery Method Oxygen Delivery Flow Rate 4 Fraction of Inspired Oxygen 03/02/23 17:50 03/02/23 18:00 03/02/23 18:10 Pulse Rate 112 H 109 H 109 H Pulse Rate [Monitor] Respiratory Rate Blood Pressure 124/73 H Pulse Oximetry 93 L 83 L Oxygen Delivery Method Oxygen Delivery Flow Rate Fraction of Inspired Oxygen 03/02/23 18:10 03/02/23 18:30 03/02/23 19:01 Pulse Rate 110 H 107 H 105 H Pulse Rate [Monitor] Respiratory Rate Blood Pressure 129/86 H 137/86 H Pulse Oximetry 92 L 96 Oxygen Delivery Method Oxygen Delivery Flow Rate Fraction of Inspired Oxygen 03/02/23 19:30 03/02/23 20:00 03/02/23 20:30 Pulse Rate 106 H 113 H 112 H Pulse Rate [Monitor] Respiratory Rate 46 H 29 H Blood Pressure 132/73 H 132/66 H 123/71 H Pulse Oximetry Oxygen Delivery Method Oxygen Delivery Flow Rate Fraction of Inspired Oxygen Internal Medicine - PN: Obj Da Labs Labs: Laboratory Results - last 24 hr 02/28/23 03/01/23 03/02/23 14:55 22:16 02:25 WBC RBC Hgb Hct MCV MCH MCHC RDW Plt Count MPV Neut % (Auto) Lymph % (Auto) [place] % (Auto) Eos % (Auto) Baso % (Auto) Neut # (Auto) Lymph # (Auto) [place] # (Auto) Eos # (Auto) Baso # (Auto) Abs Immat Gran (auto) Imm/Tot Granulo (auto) Puncture Site ABG pH ABG pCO2 ABG pO2 ABG HCO3 ABG O2 Saturation ABG Base Excess Ivan Test Vent Mode FiO2 Tidal Volume BiPAP Sodium 119 L* 118 L* Potassium 5.0 4.8 Chloride 84 L* 84 L* Carbon Dioxide 33.4 H 30.7 Anion Gap 6.6 8.1 BUN 23.0 H 24.0 H Creatinine 1.04 1.05 Est GFR ( Amer) >60 >60 Est GFR (Non-Af Amer) >60 >60 BUN/Creatinine Ratio 22.1 22.9 Glucose 148 H 152 H Calcium 8.0 L 7.9 L Total Bilirubin AST ALT Alkaline Phosphatase Total Protein Albumin Globulin Albumin/Globulin Ratio Ur Random Sodium 5 L POC Glucose 03/02/23 03/02/23 03/02/23 04:10 06:47 08:48 WBC 7.2 RBC 4.68 L Hgb 15.2 Hct 44.5 MCV 95.1 H MCH 32.5 MCHC 34.2 RDW 12.3 Plt Count 154 MPV 8.8 L Neut % (Auto) 93.2 H Lymph % (Auto) 2.4 L [place] % (Auto) 3.7 Eos % (Auto) 0.1 L Baso % (Auto) 0.0 L Neut # (Auto) 6.7 H Lymph # (Auto) 0.2 L [place] # (Auto) 0.3 Eos # (Auto) 0.0 Baso # (Auto) 0.0 Abs Immat Gran (auto) 0.04 H Imm/Tot Granulo (auto) 0.6 H Puncture Site L radial ABG pH 7.431 ABG pCO2 49.4 H ABG pO2 77.4 L ABG HCO3 32.8 H ABG O2 Saturation 94.7 ABG Base Excess 8.5 H Ivan Test Positive Vent Mode A/c FiO2 40 Tidal Volume 500 BiPAP Sodium 121 L* Potassium 4.4 Chloride 86 L Carbon Dioxide 32.7 H Anion Gap 6.7 BUN 22.0 H Creatinine 0.82 Est GFR ( Amer) >60 Est GFR (Non-Af Amer) >60 BUN/Creatinine Ratio 26.8 Glucose 140 H Calcium 7.9 L Total Bilirubin 0.5 AST 32 ALT 46 Alkaline Phosphatase 67 Total Protein 5.4 L Albumin 2.5 L Globulin 2.9 Albumin/Globulin Ratio 0.9 Ur Random Sodium POC Glucose 152 H 03/02/23 03/02/23 03/02/23 12:34 14:30 16:15 WBC RBC Hgb Hct MCV MCH MCHC RDW Plt Count MPV Neut % (Auto) Lymph % (Auto) [place] % (Auto) Eos % (Auto) Baso % (Auto) Neut # (Auto) Lymph # (Auto) [place] # (Auto) Eos # (Auto) Baso # (Auto) Abs Immat Gran (auto) Imm/Tot Granulo (auto) Puncture Site Right radial Rr ABG pH 7.305 L 7.369 ABG pCO2 68.5 H* 57.9 H* ABG pO2 89.3 70.4 L ABG HCO3 34.1 H 33.3 H ABG O2 Saturation 95.8 92.7 ABG Base Excess 7.8 H 8 H Ivan Test Pos Vent Mode FiO2 40 35 Tidal Volume BiPAP 16/8 18/6 Sodium Potassium Chloride Carbon Dioxide Anion Gap BUN Creatinine Est GFR ( Amer) Est GFR (Non-Af Amer) BUN/Creatinine Ratio Glucose Calcium Total Bilirubin AST ALT Alkaline Phosphatase Total Protein Albumin Globulin Albumin/Globulin Ratio Ur Random Sodium POC Glucose 121 H 03/02/23 03/02/23 16:31 21:44 WBC RBC Hgb Hct MCV MCH MCHC RDW Plt Count MPV Neut % (Auto) Lymph % (Auto) [place] % (Auto) Eos % (Auto) Baso % (Auto) Neut # (Auto) Lymph # (Auto) [place] # (Auto) Eos # (Auto) Baso # (Auto) Abs Immat Gran (auto) Imm/Tot Granulo (auto) Puncture Site ABG pH ABG pCO2 ABG pO2 ABG HCO3 ABG O2 Saturation ABG Base Excess Ivan Test Vent Mode FiO2 Tidal Volume BiPAP Sodium Potassium Chloride Carbon Dioxide Anion Gap BUN Creatinine Est GFR ( Amer) Est GFR (Non-Af Amer) BUN/Creatinine Ratio Glucose Calcium Total Bilirubin AST ALT Alkaline Phosphatase Total Protein Albumin Globulin Albumin/Globulin Ratio Ur Random Sodium POC Glucose 163 H 117 H Urinary Catheter Management Urinary Catheter Management Urethral: Cath placed during this visit: yes Urethral indwelling: Yes Reason for continuing: measure accurate output Insertion date: 02/28/23 Insertion time: 23:45
[2023-03-02 22:40] LABS: Anion Gap 6.9; Calcium 8.4 mg/dL (8.5-10.1); Carbon Dioxide 32.9 mmol/L (21.0-32.0); Chloride 89 mmol/L (98-107); Estimated GFR (African America >60 (>=60); Estimated GFR (Non-African Ame >60 (>=60); Glucose 122 mg/dL (74-106); Potassium 4.8 mmol/L (3.5-5.1)
[2023-03-02 22:47] LABS: Sodium 124 mmol/L (136-145)
[2023-03-02] MEDS: AZITHROMYCIN 500 MG in 0.9 % SODIUM CHLORIDE 250 ML 250 MG IV (23:28)
[2023-03-03] VITALS (106 sets, daily range): BP systolic 98–176; BP diastolic 55–115; PULSE 67–125; RESP 1–49; TEMP 36.3–37; O2SAT 68–99; BMI 25.7
--- NOTE | 2023-03-03 01:10 | PC.NURSE ---
Patient resting and noted to be mouth breathing. Encouraged to deep breath through nose and immediate improvement noted in SPO2 levels.
--- NOTE | 2023-03-03 01:13 | PC.NURSE ---
Noted to be mouth breathing again. Encouraged to breath through nose with using nasal cannula. Patient without complaints.
[2023-03-03] MEDS: IPRATROPIUM/ALBUTEROL SULFATE 3 ML AMPUL.NEB IH ×6 (03:57→23:13)
[2023-03-03 04:52] LABS: Basophils Percent Auto 0.1 % (0.2-2.0); Hematocrit 46.8 % (42.0-54.0); Hemoglobin 15.5 g/dL (14.0-18.0); Immature Granulocytes Abs Auto 0.08 10^3/uL (0.00-0.03); Immature Granulocytes Pct Auto 0.8 % (0.0-0.5); Lymphocytes Absolute Auto 0.2 10^3/uL (1.2-3.8); Lymphocytes Percent Auto 1.5 % (20.5-60.0); Mean Corpuscular HGB Conc 33.1 g/dL (29.9-35.2); Mean Corpuscular Hemoglobin 32.1 pg (25.9-34.0); Mean Corpuscular Volume 96.9 fL (80.0-94.0); Mean Platelet Volume 8.5 fL (9.5-13.5); Monocytes Absolute Auto 0.3 10^3/uL (0.3-0.8); Monocytes Percent Auto 3.1 % (1.7-12.0); Neutrophils Absolute Auto 9.3 10^3/uL (1.4-6.5); Neutrophils Percent Auto 94.5 % (43.0-75.0); Platelet Count 168 10^3/uL (150-450); Red Blood Count 4.83 10^6/uL (4.70-6.10); Red Cell Distribution Width 12.7 % (11.0-15.0); White Blood Count 9.8 10^3/uL (4.0-11.0)
--- NOTE | 2023-03-03 05:00 | XR_ITS ---
[place] [id number] Patient Name: ELIDA JERONIMO MRN: [id number] date: 1940 Sex: M Assigned Patient Location: ICU Current Patient Location: ICU Accession/Order Number: [id number] Exam Date: 03/03/2023 05:45 Report Date: 03/03/2023 07:28 At the request of: SHAIKH ROMAN Procedure: XR chest 1V EXAMINATION: XR chest 1V HISTORY: Resp failure COMPARISON: XR chest 03/02/2023 FINDINGS: LUNGS: No significant pulmonary parenchymal abnormalities. VASCULATURE: No increased pulmonary vasculature. PLEURA: No pneumothorax, effusion, or pleural thickening. CARDIAC: No cardiomegaly or cardiac silhouette abnormality. MEDIASTINUM: No visible mass or adenopathy. BONES: No fracture or visible bone lesion. OTHER: Right PICC line with tip at cavoatrial junction. IMPRESSION: 1. Interval removal of endotracheal tube and nasogastric tube. 2. Grossly clear lungs. Electronically authenticated by: REYNA ORDONEZ Date: 03/03/2023 07:28
[2023-03-03 05:14] LABS: Alanine Aminotransferase 46 U/L (16-63); Albumin Level 2.8 g/dL (3.4-5.0); Alkaline Phosphatase 69 U/L (46-116); Anion Gap 5.9; Aspartate Amino Transferase 32 U/L (15-37); BUN Creatinine Ratio 21.1; Bilirubin Total 0.5 mg/dL (0.2-1.0); Calcium 8.5 mg/dL (8.5-10.1); Carbon Dioxide 33.8 mmol/L (21.0-32.0); Chloride 91 mmol/L (98-107); Estimated GFR (African America >60 (>=60); Estimated GFR (Non-African Ame >60 (>=60); Globulin 2.7 g/dL; Glucose 114 mg/dL (74-106); Potassium 4.7 mmol/L (3.5-5.1); Sodium 126 mmol/L (136-145); Total Protein 5.5 g/dL (6.4-8.2)
[2023-03-03 05:40] LABS: pH ABG 7.412 (7.350-7.450)
[2023-03-03 05:41] LABS: ABG PCO2 52.3 mmHg (35.0-45.0); Allen Test POSITIVE (POSITIVE); Base Excess ABG 8.7 mmol/L (-2.0-2.0); HCO3 ABG 33.3 mmol/L (22.0-26.0); Oxygen Saturation ABG 93.5 %; PO2 ABG 64.7 mmHg (80.0-100.0)
[2023-03-03 05:42] LABS: BIPAP Pressure 18/6; Fractionated Inspired Oxygen 35 %; O2 Mode BIPAP; Puncture Site RR
[2023-03-03] MEDS: METHYLPREDNISOLONE SOD SUCC PF 40 MG/ML VIAL IVP ×3 (06:23→21:53)
[2023-03-03 07:39] LABS: Glucometer 102 mg/dL (74-106)
[2023-03-03] MEDS: 0.9 % SODIUM CHLORIDE 1,000 ML 50 ML IV (08:16)
[2023-03-03] MEDS: 0.9 % SODIUM CHLORIDE 1,000 ML 80 ML IV ×2 (09:47→22:54)
[2023-03-03] MEDS: PANTOPRAZOLE SODIUM 40 MG VIAL IV (09:48)
--- NOTE | 2023-03-03 10:46 | PM.PN ---
Progress Note: Subjective Subjective Interval history: Patient significantly improved this am. Extubated yesterday afternoon and normal SpO2 on 4 LPM. Mild SOB and chest tightness. Mild cough but no sputum. Sodium slowly improving. Not hungry but no nausea or emesis. No chest pain or palpitations. C/o weakness and PT ordered. Exam Constitutional Vital Signs - 24 hr 03/02/23 11:01 03/02/23 11:32 03/02/23 11:25 Temperature Pulse Rate 99 H 96 H 92 H Pulse Rate [Monitor] Respiratory Rate 16 Blood Pressure 124/69 H Blood Pressure [Left Arm] Pulse Oximetry 98 97 97 Oxygen Delivery Method Oxygen Delivery Flow Rate Fraction of Inspired Oxygen 40 03/02/23 12:00 03/02/23 11:40 03/02/23 11:40 Temperature Pulse Rate 107 H 92 H 88 Pulse Rate [Monitor] Respiratory Rate Blood Pressure 131/55 H Blood Pressure [Left Arm] Pulse Oximetry 97 97 Oxygen Delivery Method Oxygen Delivery Flow Rate Fraction of Inspired Oxygen 03/02/23 12:01 03/02/23 12:32 03/02/23 13:01 Temperature Pulse Rate 101 H 100 H 112 H Pulse Rate [Monitor] Respiratory Rate Blood Pressure 85/65 L 145/60 H 125/59 H Blood Pressure [Left Arm] Pulse Oximetry 97 96 98 Oxygen Delivery Method Oxygen Delivery Flow Rate Fraction of Inspired Oxygen 03/02/23 12:55 03/02/23 13:25 03/02/23 14:28 Temperature Pulse Rate 98 H Pulse Rate [Monitor] Respiratory Rate 36 H Blood Pressure Blood Pressure [Left Arm] Pulse Oximetry 96 Oxygen Delivery Method Oxygen Delivery Flow Rate Fraction of Inspired Oxygen 40 40 03/02/23 15:17 03/02/23 15:17 03/02/23 13:01 Temperature Pulse Rate 100 H 110 H Pulse Rate [Monitor] Respiratory Rate 28 H 22 Blood Pressure 125/59 H Blood Pressure [Left Arm] Pulse Oximetry 97 97 97 Oxygen Delivery Method BIPAP Oxygen Delivery Flow Rate 40 Fraction of Inspired Oxygen 40 40 35 03/02/23 13:31 03/02/23 14:00 03/02/23 14:30 Temperature Pulse Rate 102 H 92 H 95 H Pulse Rate [Monitor] Respiratory Rate Blood Pressure 109/80 H 111/79 102/63 Blood Pressure [Left Arm] Pulse Oximetry 96 97 96 Oxygen Delivery Method Oxygen Delivery Flow Rate Fraction of Inspired Oxygen 03/02/23 15:00 03/02/23 15:30 03/02/23 16:45 Temperature Pulse Rate 95 H 87 Pulse Rate [Monitor] 93 H Respiratory Rate 23 Blood Pressure 115/70 119/68 Blood Pressure [Left Arm] Pulse Oximetry 96 95 Oxygen Delivery Method Oxygen Delivery Flow Rate Fraction of Inspired Oxygen 03/02/23 16:53 03/02/23 18:14 03/02/23 19:40 Temperature Pulse Rate 87 106 H Pulse Rate [Monitor] 105 H Respiratory Rate 16 Blood Pressure Blood Pressure [Left Arm] Pulse Oximetry Oxygen Delivery Method Oxygen Delivery Flow Rate Fraction of Inspired Oxygen 03/02/23 20:00 03/02/23 20:02 03/02/23 20:02 Temperature Pulse Rate 112 H 105 H Pulse Rate [Monitor] Respiratory Rate 32 H Blood Pressure Blood Pressure [Left Arm] Pulse Oximetry 90 L 90 L Oxygen Delivery Method Nasal Cannula Nasal Cannula Oxygen Delivery Flow Rate 4 4 Fraction of Inspired Oxygen 03/02/23 15:30 03/02/23 16:01 03/02/23 16:31 Temperature Pulse Rate 89 86 Pulse Rate [Monitor] Respiratory Rate Blood Pressure 119/68 98/78 135/71 H Blood Pressure [Left Arm] Pulse Oximetry 95 93 L Oxygen Delivery Method Oxygen Delivery Flow Rate Fraction of Inspired Oxygen 03/02/23 17:01 03/02/23 17:32 03/02/23 17:40 Temperature Pulse Rate 108 H 113 H 106 H Pulse Rate [Monitor] Respiratory Rate Blood Pressure 122/94 H Blood Pressure [Left Arm] Pulse Oximetry 94 L Oxygen Delivery Method Oxygen Delivery Flow Rate 4 Fraction of Inspired Oxygen 03/02/23 17:50 03/02/23 18:00 03/02/23 18:10 Temperature Pulse Rate 112 H 109 H 109 H Pulse Rate [Monitor] Respiratory Rate Blood Pressure 124/73 H Blood Pressure [Left Arm] Pulse Oximetry 93 L 83 L Oxygen Delivery Method Oxygen Delivery Flow Rate Fraction of Inspired Oxygen 03/02/23 18:10 03/02/23 18:30 03/02/23 19:01 Temperature Pulse Rate 110 H 107 H 105 H Pulse Rate [Monitor] Respiratory Rate Blood Pressure 129/86 H 137/86 H Blood Pressure [Left Arm] Pulse Oximetry 92 L 96 Oxygen Delivery Method Oxygen Delivery Flow Rate Fraction of Inspired Oxygen 03/02/23 19:30 03/02/23 20:00 03/02/23 20:30 Temperature Pulse Rate 106 H 113 H 112 H Pulse Rate [Monitor] Respiratory Rate 46 H 29 H Blood Pressure 132/73 H 132/66 H 123/71 H Blood Pressure [Left Arm] Pulse Oximetry Oxygen Delivery Method Oxygen Delivery Flow Rate Fraction of Inspired Oxygen 03/02/23 22:00 03/02/23 23:55 03/02/23 23:55 Temperature Pulse Rate 113 H 109 H 109 H Pulse Rate [Monitor] Respiratory Rate 30 H Blood Pressure Blood Pressure [Left Arm] Pulse Oximetry 93 L 96 Oxygen Delivery Method BIPAP Oxygen Delivery Flow Rate Fraction of Inspired Oxygen 35 35 03/03/23 00:00 03/03/23 00:00 03/02/23 20:30 Temperature Pulse Rate 89 117 H Pulse Rate [Monitor] 93 H Respiratory Rate 14 46 H Blood Pressure 123/71 H Blood Pressure [Left Arm] Pulse Oximetry 91 L Oxygen Delivery Method Oxygen Delivery Flow Rate 4 Fraction of Inspired Oxygen 03/02/23 21:00 03/02/23 21:30 03/02/23 22:00 Temperature Pulse Rate 116 H 116 H 113 H Pulse Rate [Monitor] Respiratory Rate 35 H 44 H 34 H Blood Pressure 123/67 H 132/76 H 123/75 H Blood Pressure [Left Arm] Pulse Oximetry 85 L 92 L 94 L Oxygen Delivery Method Oxygen Delivery Flow Rate 4 4 4 Fraction of Inspired Oxygen 03/02/23 22:30 03/02/23 23:00 03/02/23 23:30 Temperature Pulse Rate 112 H 112 H 108 H Pulse Rate [Monitor] Respiratory Rate 44 H 29 H Blood Pressure 127/79 H 134/97 H 132/88 H Blood Pressure [Left Arm] Pulse Oximetry 89 L 86 L 93 L Oxygen Delivery Method Oxygen Delivery Flow Rate 4 4 4 Fraction of Inspired Oxygen 03/03/23 00:00 03/03/23 00:30 03/03/23 02:00 Temperature Pulse Rate 100 H 90 82 Pulse Rate [Monitor] Respiratory Rate 22 18 Blood Pressure 117/73 105/71 Blood Pressure [Left Arm] Pulse Oximetry 98 96 Oxygen Delivery Method Oxygen Delivery Flow Rate Fraction of Inspired Oxygen 40 03/03/23 03:58 03/03/23 03:58 03/03/23 04:00 Temperature Pulse Rate 85 71 Pulse Rate [Monitor] 72 Respiratory Rate 17 16 Blood Pressure Blood Pressure [Left Arm] Pulse Oximetry 95 95 Oxygen Delivery Method BIPAP Oxygen Delivery Flow Rate Fraction of Inspired Oxygen 35 35 03/03/23 04:00 03/03/23 00:30 03/03/23 02:00 Temperature Pulse Rate 72 68 85 Pulse Rate [Monitor] Respiratory Rate 16 21 Blood Pressure 105/71 98/55 L Blood Pressure [Left Arm] Pulse Oximetry 97 95 Oxygen Delivery Method Oxygen Delivery Flow Rate Fraction of Inspired Oxygen 03/03/23 04:01 03/03/23 04:01 03/03/23 06:00 Temperature Pulse Rate 70 67 97 H Pulse Rate [Monitor] Respiratory Rate 16 16 Blood Pressure 134/74 H 134/74 H Blood Pressure [Left Arm] Pulse Oximetry 94 L 94 L Oxygen Delivery Method Oxygen Delivery Flow Rate Fraction of Inspired Oxygen 03/03/23 04:01 03/03/23 06:00 03/03/23 07:20 Temperature Pulse Rate 96 H 102 H Pulse Rate [Monitor] Respiratory Rate 20 18 Blood Pressure 134/74 H 148/85 H Blood Pressure [Left Arm] Pulse Oximetry 94 L 88 L 92 L Oxygen Delivery Method Nasal Cannula Oxygen Delivery Flow Rate 4 Fraction of Inspired Oxygen 03/03/23 07:00 03/03/23 08:21 03/03/23 06:00 Temperature 98.4 F Pulse Rate 103 H 102 H 101 H Pulse Rate [Monitor] Respiratory Rate 18 38 H Blood Pressure 148/85 H Blood Pressure [Left Arm] 164/92 H Pulse Oximetry 94 L 95 Oxygen Delivery Method Nasal Cannula Oxygen Delivery Flow Rate 4 4 Fraction of Inspired Oxygen 03/03/23 07:41 03/03/23 08:02 03/03/23 10:22 Temperature Pulse Rate 109 H 103 H 104 H Pulse Rate [Monitor] Respiratory Rate 45 H 38 H Blood Pressure 165/102 H 164/92 H Blood Pressure [Left Arm] Pulse Oximetry Oxygen Delivery Method Oxygen Delivery Flow Rate Fraction of Inspired Oxygen Documenting provider has reviewed patient's vital signs: yes Common normals: no apparent distress, oriented x3 and alert HENMT Common normals: normocephalic Eye Common normals: PERRL and EOMs intact bilaterally Respiratory Auscultation: diminished lung sounds bilateral and diffuse; no rales, no rhonchi and no wheezes Cardio Common normals: regular rate, regular rhythm, no gallops, no murmurs and no rub GI Common normals: Normal to inspection, nondistended, normoactive bowel sounds present and non-tender Extremity General: no edema Progress Note: Objective Labs Labs: Short CBC 03/03/23 Range/Units 04:10 WBC 9.8 (4.0-11.0) 10^3/uL Hgb 15.5 (14.0-18.0) g/dL Hct 46.8 (42.0-54.0) % Plt Count 168 (150-450) 10^3/uL BMP 03/02/23 03/03/23 22:25 04:10 Sodium 124 L* 126 L Potassium 4.8 4.7 Chloride 89 L 91 L Carbon Dioxide 32.9 H 33.8 H BUN 16.0 15.0 Creatinine 0.80 0.71 Glucose 122 H 114 H Calcium 8.4 L 8.5 Liver Function 03/03/23 Range/Units 04:10 Total Bilirubin 0.5 (0.2-1.0) mg/dL AST 32 (15-37) U/L ALT 46 (16-63) U/L Alkaline Phosphatase 69 (46-116) U/L Albumin 2.8 L (3.4-5.0) g/dL ABG Attestation: I have reviewed the pertinent ABG results. Progress Note: A&P Assessment and Plan (1) Acute hypercapnic respiratory failure: (2) Acute respiratory failure with hypoxia: (3) Hyponatremia: (4) Single subsegmental pulmonary embolism without acute cor pulmonale: (5) Elevated troponin: (6) COPD exacerbation: (7) Hypertension: (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 Acute hypoxic and hypercapnic respiratory failure? 2. Acute exacerbation of COPD? 3. Hyponatremia? 4. HTN? 5. Elevated troponin Significantly improved and on NC. Wean O2 as tolerated. Continue antibiotics, steroids, and breathing treatments. Sodium slowly improving and increase IV fluids. Continue PT for weakness. Add PEP.
--- NOTE | 2023-03-03 10:50 | SWNOTE1 ---
SW met with pt to discuss dc needs. Pt lives at home with his , they have a good support system. Pt was independent at home and did not wear home oxygen. He is currently on 5 liters at hospital. Pt lives in a 1 story home. At this time pt annd will review home health list from [employer] with star ratings. Unsure if patient will have dc needs depending on his progress. SW to check back with pt closer to discharge.
[2023-03-03 12:19] LABS: Glucometer 168 mg/dL (74-106)
--- NOTE | 2023-03-03 15:58 | CM.NOTE ---
Rounds made with Dr. Arce, no discharge today. Will follow PT and OT for discharge needs. Dr. Arce also discussed with pt possible need for home oxygen at discharge.
[2023-03-03 17:30] LABS: Glucometer 107 mg/dL (74-106)
[2023-03-03] MEDS: CEFTRIAXONE 1,000 MG in 0.9 % SODIUM CHLORIDE 50 ML 100 MG IV (20:08)
[2023-03-03] MEDS: NICOTINE 21 MG PATCH.TD24 TD (20:11)
[2023-03-03] MEDS: AZITHROMYCIN 500 MG in 0.9 % SODIUM CHLORIDE 250 ML 250 MG IV (22:54)
[2023-03-04] VITALS (50 sets, daily range): BP systolic 146–174; BP diastolic 82–115; PULSE 66–122; RESP 17–41; TEMP 36.6; O2SAT 89–98
[2023-03-04] MEDS: METOPROLOL SUCCINATE 25 MG TAB.ER.24H PO (01:37)
--- NOTE | 2023-03-04 03:34 | PC.NURSE ---
BP taken right after returned to bed from using bsc, will recheck
[2023-03-04] MEDS: IPRATROPIUM/ALBUTEROL SULFATE 3 ML AMPUL.NEB IH ×6 (04:18→23:39)
[2023-03-04 04:47] LABS: Basophils Percent Auto 0.1 % (0.2-2.0); Hematocrit 47.5 % (42.0-54.0); Hemoglobin 15.6 g/dL (14.0-18.0); Immature Granulocytes Abs Auto 0.08 10^3/uL (0.00-0.03); Immature Granulocytes Pct Auto 0.9 % (0.0-0.5); Lymphocytes Absolute Auto 0.1 10^3/uL (1.2-3.8); Lymphocytes Percent Auto 1.3 % (20.5-60.0); Mean Corpuscular HGB Conc 32.8 g/dL (29.9-35.2); Mean Corpuscular Hemoglobin 32.1 pg (25.9-34.0); Mean Corpuscular Volume 97.7 fL (80.0-94.0); Mean Platelet Volume 8.7 fL (9.5-13.5); Monocytes Absolute Auto 0.4 10^3/uL (0.3-0.8); Monocytes Percent Auto 4.4 % (1.7-12.0); Neutrophils Percent Auto 93.3 % (43.0-75.0); Platelet Count 178 10^3/uL (150-450); Red Blood Count 4.86 10^6/uL (4.70-6.10); Red Cell Distribution Width 12.8 % (11.0-15.0); White Blood Count 8.6 10^3/uL (4.0-11.0)
[2023-03-04 05:06] LABS: Alanine Aminotransferase 51 U/L (16-63); Albumin Level 2.9 g/dL (3.4-5.0); Alkaline Phosphatase 66 U/L (46-116); Anion Gap 5.5; Aspartate Amino Transferase 34 U/L (15-37); BUN Creatinine Ratio 17.4; Bilirubin Total 0.7 mg/dL (0.2-1.0); Calcium 8.5 mg/dL (8.5-10.1); Carbon Dioxide 34.7 mmol/L (21.0-32.0); Chloride 93 mmol/L (98-107); Estimated GFR (African America >60 (>=60); Estimated GFR (Non-African Ame >60 (>=60); Globulin 2.8 g/dL; Glucose 113 mg/dL (74-106); Potassium 4.2 mmol/L (3.5-5.1); Sodium 129 mmol/L (136-145); Total Protein 5.7 g/dL (6.4-8.2)
--- NOTE | 2023-03-04 06:30 | XR_ITS ---
The [address] [address] Patient Name: ELIDA JERONIMO MRN: [id number] date: 1940 Sex: M Assigned Patient Location: ICU Current Patient Location: ICU Accession/Order Number: [id number] Exam Date: 03/04/2023 06:30 Report Date: 03/04/2023 09:38 At the request of: SHAIKH ROMAN Procedure: XR chest 1V EXAM: XR chest 1V HISTORY: Respiratory failure. COMPARISON: 03/03/2023 FINDINGS: There is a right-sided PICC line with its tip at the atrial caval junction. The heart, mediastinum, pulmonary vasculature, and bony thorax demonstrate no discrete acute abnormality. There is no evidence of an infiltrate, pleural effusion or pneumothorax. There is moderate prominence of the lung markings with bibasilar atelectasis. IMPRESSION: Bibasilar atelectasis. Electronically authenticated by: NILDA CHILDRESS Date: 03/04/2023 09:38
[2023-03-04] MEDS: METHYLPREDNISOLONE SOD SUCC PF 40 MG/ML VIAL IVP ×3 (08:04→22:49)
[2023-03-04] MEDS: PANTOPRAZOLE SODIUM 40 MG VIAL IV (08:04)
[2023-03-04] MEDS: LISINOPRIL 20 MG TABLET 40 MG PO (08:05)
[2023-03-04] MEDS: NICOTINE 21 MG PATCH.TD24 TD ×2 (08:08→20:45)
--- NOTE | 2023-03-04 09:54 | PM.PN ---
Progress Note: Subjective Subjective Interval history: Patient stable this am. Able to wean off supplemental oxygen and maintaining normal SpO2 on room air. Still desaturates in mid to upper 80s with activity but quickly recovers. Mild SOB. No chest tightness. Denies cough. No chest pain or palpitations. Unsteady and fatigue with ambulation. Normal appetite and no emesis or diarrhea. Exam Constitutional Vital Signs - 24 hr 03/03/23 10:22 03/03/23 11:50 03/03/23 12:00 Temperature Pulse Rate 104 H 102 H Pulse Rate [Monitor] Respiratory Rate Blood Pressure Blood Pressure [Left Arm] Pulse Oximetry 94 L Oxygen Delivery Method Nasal Cannula Oxygen Delivery Flow Rate 4 03/03/23 12:00 03/03/23 14:19 03/03/23 15:51 Temperature 98.6 F Pulse Rate 98 H 101 H Pulse Rate [Monitor] Respiratory Rate 18 Blood Pressure Blood Pressure [Left Arm] Pulse Oximetry 96 96 Oxygen Delivery Method Nasal Cannula Nasal Cannula Oxygen Delivery Flow Rate 4 3.5 03/03/23 16:50 03/03/23 10:02 03/03/23 10:10 Temperature Pulse Rate 109 H 100 H 114 H Pulse Rate [Monitor] Respiratory Rate 37 H 38 H Blood Pressure Blood Pressure [Left Arm] Pulse Oximetry 91 L 83 L Oxygen Delivery Method Oxygen Delivery Flow Rate 03/03/23 10:20 03/03/23 10:30 03/03/23 10:40 Temperature Pulse Rate 100 H 99 H 104 H Pulse Rate [Monitor] Respiratory Rate 37 H 34 H 43 H Blood Pressure Blood Pressure [Left Arm] Pulse Oximetry Oxygen Delivery Method Oxygen Delivery Flow Rate 03/03/23 10:50 03/03/23 11:00 03/03/23 11:10 Temperature Pulse Rate 100 H 98 H 108 H Pulse Rate [Monitor] Respiratory Rate 21 27 H 20 Blood Pressure Blood Pressure [Left Arm] Pulse Oximetry 68 L Oxygen Delivery Method Oxygen Delivery Flow Rate 03/03/23 11:23 03/03/23 11:30 03/03/23 11:40 Temperature Pulse Rate 115 H 111 H 116 H Pulse Rate [Monitor] Respiratory Rate 38 H 21 21 Blood Pressure Blood Pressure [Left Arm] Pulse Oximetry 83 L Oxygen Delivery Method Oxygen Delivery Flow Rate 03/03/23 11:50 03/03/23 12:00 03/03/23 12:10 Temperature Pulse Rate 111 H 112 H 107 H Pulse Rate [Monitor] Respiratory Rate 27 H 45 H 40 H Blood Pressure Blood Pressure [Left Arm] Pulse Oximetry 95 98 Oxygen Delivery Method Oxygen Delivery Flow Rate 03/03/23 12:20 03/03/23 12:30 03/03/23 12:40 Temperature Pulse Rate 110 H 115 H 107 H Pulse Rate [Monitor] Respiratory Rate 36 H 40 H 33 H Blood Pressure Blood Pressure [Left Arm] Pulse Oximetry 94 L Oxygen Delivery Method Oxygen Delivery Flow Rate 03/03/23 12:50 03/03/23 13:00 03/03/23 13:10 Temperature Pulse Rate 102 H 98 H 112 H Pulse Rate [Monitor] Respiratory Rate 32 H 35 H 33 H Blood Pressure Blood Pressure [Left Arm] Pulse Oximetry Oxygen Delivery Method Oxygen Delivery Flow Rate 03/03/23 13:20 03/03/23 13:30 03/03/23 13:40 Temperature Pulse Rate 110 H 102 H 99 H Pulse Rate [Monitor] Respiratory Rate 26 H 40 H 25 H Blood Pressure Blood Pressure [Left Arm] Pulse Oximetry 82 L 92 L 91 L Oxygen Delivery Method Oxygen Delivery Flow Rate 03/03/23 13:50 03/03/23 14:00 03/03/23 14:10 Temperature Pulse Rate 98 H 112 H 103 H Pulse Rate [Monitor] Respiratory Rate 31 H 25 H 29 H Blood Pressure Blood Pressure [Left Arm] Pulse Oximetry 93 L 96 91 L Oxygen Delivery Method Oxygen Delivery Flow Rate 03/03/23 14:20 03/03/23 14:30 03/03/23 14:40 Temperature Pulse Rate 98 H 117 H 108 H Pulse Rate [Monitor] Respiratory Rate 21 22 42 H Blood Pressure Blood Pressure [Left Arm] Pulse Oximetry 93 L 92 L Oxygen Delivery Method Oxygen Delivery Flow Rate 03/03/23 14:50 03/03/23 15:00 03/03/23 15:10 Temperature Pulse Rate 102 H 103 H 102 H Pulse Rate [Monitor] Respiratory Rate 31 H 36 H 41 H Blood Pressure Blood Pressure [Left Arm] Pulse Oximetry 92 L 89 L 91 L Oxygen Delivery Method Oxygen Delivery Flow Rate 03/03/23 15:20 03/03/23 15:30 03/03/23 15:40 Temperature Pulse Rate 102 H 98 H 98 H Pulse Rate [Monitor] Respiratory Rate 39 H 35 H 36 H Blood Pressure Blood Pressure [Left Arm] Pulse Oximetry 91 L 93 L 93 L Oxygen Delivery Method Oxygen Delivery Flow Rate 03/03/23 15:50 03/03/23 16:00 03/03/23 16:10 Temperature Pulse Rate 99 H 104 H 111 H Pulse Rate [Monitor] Respiratory Rate 49 H 29 H 25 H Blood Pressure Blood Pressure [Left Arm] Pulse Oximetry 94 L 99 93 L Oxygen Delivery Method Oxygen Delivery Flow Rate 03/03/23 16:14 03/03/23 16:15 03/03/23 16:16 Temperature Pulse Rate 104 H 108 H Pulse Rate [Monitor] Respiratory Rate 44 H 41 H Blood Pressure 176/102 H 172/97 H Blood Pressure [Left Arm] Pulse Oximetry 91 L 91 L 94 L Oxygen Delivery Method Oxygen Delivery Flow Rate 03/03/23 16:35 03/03/23 16:40 03/03/23 16:50 Temperature Pulse Rate 117 H 108 H Pulse Rate [Monitor] Respiratory Rate 39 H 42 H 13 Blood Pressure Blood Pressure [Left Arm] Pulse Oximetry Oxygen Delivery Method Oxygen Delivery Flow Rate 03/03/23 18:24 03/03/23 19:51 03/03/23 19:51 Temperature Pulse Rate 110 H 104 H Pulse Rate [Monitor] Respiratory Rate 20 Blood Pressure Blood Pressure [Left Arm] Pulse Oximetry 94 L 94 L Oxygen Delivery Method Nasal Cannula Nasal Cannula Oxygen Delivery Flow Rate 3.5 3.5 03/03/23 20:00 03/03/23 20:30 03/03/23 17:00 Temperature Pulse Rate 116 H 108 H Pulse Rate [Monitor] 112 H Respiratory Rate 29 H 34 H Blood Pressure Blood Pressure [Left Arm] Pulse Oximetry Oxygen Delivery Method Oxygen Delivery Flow Rate 03/03/23 17:10 03/03/23 17:20 03/03/23 17:30 Temperature Pulse Rate 104 H 102 H 101 H Pulse Rate [Monitor] Respiratory Rate 28 H 34 H 28 H Blood Pressure Blood Pressure [Left Arm] Pulse Oximetry Oxygen Delivery Method Oxygen Delivery Flow Rate 03/03/23 17:40 03/03/23 17:50 03/03/23 18:00 Temperature Pulse Rate 110 H 108 H 107 H Pulse Rate [Monitor] Respiratory Rate 37 H 23 9 L Blood Pressure Blood Pressure [Left Arm] Pulse Oximetry Oxygen Delivery Method Oxygen Delivery Flow Rate 03/03/23 18:10 03/03/23 18:20 03/03/23 18:30 Temperature Pulse Rate 118 H 116 H 125 H Pulse Rate [Monitor] Respiratory Rate 42 H 6 L 30 H Blood Pressure Blood Pressure [Left Arm] Pulse Oximetry Oxygen Delivery Method Oxygen Delivery Flow Rate 03/03/23 18:40 03/03/23 18:50 03/03/23 19:00 Temperature Pulse Rate 118 H 105 H 105 H Pulse Rate [Monitor] Respiratory Rate 27 H 1 L 16 Blood Pressure Blood Pressure [Left Arm] Pulse Oximetry Oxygen Delivery Method Oxygen Delivery Flow Rate 03/03/23 19:10 03/03/23 19:20 03/03/23 19:30 Temperature Pulse Rate 102 H 108 H 109 H Pulse Rate [Monitor] Respiratory Rate 37 H 18 31 H Blood Pressure Blood Pressure [Left Arm] Pulse Oximetry Oxygen Delivery Method Oxygen Delivery Flow Rate 03/03/23 19:40 03/03/23 19:50 03/03/23 20:00 Temperature Pulse Rate 103 H 106 H 112 H Pulse Rate [Monitor] Respiratory Rate 39 H 35 H 12 Blood Pressure Blood Pressure [Left Arm] Pulse Oximetry Oxygen Delivery Method Oxygen Delivery Flow Rate 03/03/23 20:02 03/03/23 20:02 03/03/23 20:02 Temperature 97.5 F L Pulse Rate 108 H 108 H Pulse Rate [Monitor] Respiratory Rate 23 Blood Pressure 169/91 H 169/91 H Blood Pressure [Left Arm] Pulse Oximetry 92 L 94 L Oxygen Delivery Method Oxygen Delivery Flow Rate 03/03/23 20:10 03/03/23 22:15 03/03/23 23:15 Temperature Pulse Rate 123 H 123 H 103 H Pulse Rate [Monitor] Respiratory Rate 29 H 20 Blood Pressure Blood Pressure [Left Arm] Pulse Oximetry 94 L 98 Oxygen Delivery Method Nasal Cannula Oxygen Delivery Flow Rate 3.5 03/03/23 23:17 03/04/23 00:00 03/03/23 20:20 Temperature 97.4 F L Pulse Rate 115 H 108 H Pulse Rate [Monitor] 103 H Respiratory Rate 39 H Blood Pressure Blood Pressure [Left Arm] 160/115 H Pulse Oximetry 93 L 93 L Oxygen Delivery Method Nasal Cannula Nasal Cannula Oxygen Delivery Flow Rate 2.5 03/03/23 20:30 03/03/23 20:40 03/03/23 20:50 Temperature Pulse Rate 116 H 105 H 111 H Pulse Rate [Monitor] Respiratory Rate 30 H 35 H 35 H Blood Pressure Blood Pressure [Left Arm] Pulse Oximetry Oxygen Delivery Method Oxygen Delivery Flow Rate 03/03/23 21:00 03/03/23 21:10 03/03/23 21:20 Temperature Pulse Rate 109 H 103 H 111 H Pulse Rate [Monitor] Respiratory Rate 36 H 29 H 29 H Blood Pressure Blood Pressure [Left Arm] Pulse Oximetry Oxygen Delivery Method Oxygen Delivery Flow Rate 03/03/23 21:30 03/03/23 21:40 03/03/23 21:50 Temperature Pulse Rate 110 H 106 H 107 H Pulse Rate [Monitor] Respiratory Rate 42 H 36 H 39 H Blood Pressure Blood Pressure [Left Arm] Pulse Oximetry Oxygen Delivery Method Oxygen Delivery Flow Rate 03/03/23 22:00 03/03/23 22:10 03/03/23 22:20 Temperature Pulse Rate 117 H 105 H Pulse Rate [Monitor] Respiratory Rate 22 40 H Blood Pressure Blood Pressure [Left Arm] Pulse Oximetry 97 Oxygen Delivery Method Oxygen Delivery Flow Rate 03/03/23 22:30 03/03/23 22:40 03/03/23 22:50 Temperature Pulse Rate 113 H 104 H Pulse Rate [Monitor] Respiratory Rate 34 H 25 H Blood Pressure Blood Pressure [Left Arm] Pulse Oximetry 95 Oxygen Delivery Method Oxygen Delivery Flow Rate 03/03/23 23:00 03/03/23 23:10 03/03/23 23:20 Temperature Pulse Rate 102 H 100 H 106 H Pulse Rate [Monitor] Respiratory Rate 4 L 27 H 19 Blood Pressure Blood Pressure [Left Arm] Pulse Oximetry Oxygen Delivery Method Oxygen Delivery Flow Rate 03/03/23 23:30 03/03/23 23:40 03/03/23 23:50 Temperature Pulse Rate 114 H 111 H 111 H Pulse Rate [Monitor] Respiratory Rate 35 H 37 H 8 L Blood Pressure Blood Pressure [Left Arm] Pulse Oximetry Oxygen Delivery Method Oxygen Delivery Flow Rate 03/04/23 00:00 03/04/23 00:10 03/04/23 00:19 Temperature Pulse Rate 110 H 108 H Pulse Rate [Monitor] Respiratory Rate 24 34 H Blood Pressure 160/115 H Blood Pressure [Left Arm] Pulse Oximetry Oxygen Delivery Method Oxygen Delivery Flow Rate 03/04/23 00:19 03/04/23 00:19 03/04/23 00:20 Temperature Pulse Rate 113 H 109 H Pulse Rate [Monitor] Respiratory Rate 20 29 H Blood Pressure 160/115 H Blood Pressure [Left Arm] Pulse Oximetry Oxygen Delivery Method Oxygen Delivery Flow Rate 03/04/23 00:30 03/04/23 01:00 03/04/23 01:51 Temperature Pulse Rate 110 H 107 H 103 H Pulse Rate [Monitor] Respiratory Rate 34 H Blood Pressure Blood Pressure [Left Arm] Pulse Oximetry Oxygen Delivery Method Oxygen Delivery Flow Rate 03/04/23 02:03 03/04/23 00:40 03/04/23 00:50 Temperature Pulse Rate 104 H 107 H 106 H Pulse Rate [Monitor] Respiratory Rate 35 H 36 H Blood Pressure Blood Pressure [Left Arm] Pulse Oximetry Oxygen Delivery Method Oxygen Delivery Flow Rate 03/04/23 01:00 03/04/23 01:10 03/04/23 01:20 Temperature Pulse Rate 107 H 111 H 111 H Pulse Rate [Monitor] Respiratory Rate 25 H 38 H 39 H Blood Pressure Blood Pressure [Left Arm] Pulse Oximetry Oxygen Delivery Method Oxygen Delivery Flow Rate 03/04/23 01:30 03/04/23 01:40 03/04/23 01:50 Temperature Pulse Rate 111 H 107 H 103 H Pulse Rate [Monitor] Respiratory Rate 39 H 41 H 31 H Blood Pressure Blood Pressure [Left Arm] Pulse Oximetry Oxygen Delivery Method Oxygen Delivery Flow Rate 03/04/23 02:00 03/04/23 02:10 03/04/23 02:20 Temperature Pulse Rate 103 H 102 H 100 H Pulse Rate [Monitor] Respiratory Rate 22 33 H 29 H Blood Pressure Blood Pressure [Left Arm] Pulse Oximetry Oxygen Delivery Method Oxygen Delivery Flow Rate 03/04/23 02:30 03/04/23 02:40 03/04/23 02:50 Temperature Pulse Rate 93 H 97 H 95 H Pulse Rate [Monitor] Respiratory Rate 17 Blood Pressure Blood Pressure [Left Arm] Pulse Oximetry Oxygen Delivery Method Oxygen Delivery Flow Rate 03/04/23 03:00 03/04/23 03:10 03/04/23 03:20 Temperature Pulse Rate 98 H 97 H 109 H Pulse Rate [Monitor] Respiratory Rate Blood Pressure Blood Pressure [Left Arm] Pulse Oximetry Oxygen Delivery Method Oxygen Delivery Flow Rate 03/04/23 03:27 03/04/23 03:27 03/04/23 03:30 Temperature Pulse Rate 101 H 97 H Pulse Rate [Monitor] Respiratory Rate Blood Pressure 174/109 H Blood Pressure [Left Arm] Pulse Oximetry 98 Oxygen Delivery Method Oxygen Delivery Flow Rate 03/04/23 04:00 03/04/23 03:40 03/04/23 03:50 Temperature Pulse Rate 93 H 90 Pulse Rate [Monitor] 91 H Respiratory Rate Blood Pressure Blood Pressure [Left Arm] Pulse Oximetry Oxygen Delivery Method Oxygen Delivery Flow Rate 03/04/23 03:57 03/04/23 03:57 03/04/23 04:23 Temperature 97.8 F Pulse Rate 91 H 66 Pulse Rate [Monitor] 91 H Respiratory Rate 18 18 Blood Pressure 157/88 H Blood Pressure [Left Arm] Pulse Oximetry 94 L 98 Oxygen Delivery Method Nasal Cannula Nasal Cannula Oxygen Delivery Flow Rate 2.5 2.5 03/04/23 05:00 03/04/23 06:43 03/04/23 08:00 Temperature Pulse Rate 91 H 95 H Pulse Rate [Monitor] 122 H Respiratory Rate 18 Blood Pressure Blood Pressure [Left Arm] Pulse Oximetry 94 L Oxygen Delivery Method Oxygen Delivery Flow Rate 03/04/23 08:00 03/04/23 07:18 03/04/23 08:05 Temperature 97.8 F Pulse Rate 122 H Pulse Rate [Monitor] Respiratory Rate 18 24 Blood Pressure 162/95 H Blood Pressure [Left Arm] 162/95 H Pulse Oximetry 89 L 90 L Oxygen Delivery Method Room Air Room Air Oxygen Delivery Flow Rate 03/04/23 09:00 Temperature Pulse Rate 108 H Pulse Rate [Monitor] Respiratory Rate Blood Pressure Blood Pressure [Left Arm] Pulse Oximetry Oxygen Delivery Method Oxygen Delivery Flow Rate Documenting provider has reviewed patient's vital signs: yes Common normals: no apparent distress, oriented x3 and alert [facility] Common normals: normocephalic Eye Common normals: PERRL and EOMs intact bilaterally Respiratory Common normals: clear to auscultation bilaterally Cardio Common normals: regular rate, no gallops, no murmurs and no rub GI Common normals: Normal to inspection, nondistended, normoactive bowel sounds present and non-tender Extremity General: no edema Progress Note: Objective Labs Labs: Short CBC 03/04/23 Range/Units 03:45 WBC 8.6 (4.0-11.0) 10^3/uL Hgb 15.6 (14.0-18.0) g/dL Hct 47.5 (42.0-54.0) % Plt Count 178 (150-450) 10^3/uL BMP 03/04/23 03:45 Sodium 129 L Potassium 4.2 Chloride 93 L Carbon Dioxide 34.7 H BUN 12.0 Creatinine 0.69 L Glucose 113 H Calcium 8.5 Liver Function 03/04/23 Range/Units 03:45 Total Bilirubin 0.7 (0.2-1.0) mg/dL AST 34 (15-37) U/L ALT 51 (16-63) U/L Alkaline Phosphatase 66 (46-116) U/L Albumin 2.9 L (3.4-5.0) g/dL Progress Note: A&P Assessment and Plan (1) Acute hypercapnic respiratory failure: (2) Acute respiratory failure with hypoxia: (3) Hyponatremia: (4) Single subsegmental pulmonary embolism without acute cor pulmonale: (5) Elevated troponin: (6) COPD exacerbation: (7) Hypertension: (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 Acute hypoxic and hypercapnic respiratory failure? 2. Acute exacerbation of COPD? 3. Hyponatremia? 4. HTN? 5. Elevated troponin Patient continues to improve. Continue antibiotics, steroids, and breathing treatments. Increase ambulation and monitor SpO2. Will need a walk test prior to discharge. Sodium improved and continue IV fluids. If continues to improve possible discharge in am.
[2023-03-04 11:46] LABS: Glucometer 117 mg/dL (74-106)
--- NOTE | 2023-03-04 12:03 | RESP.RT ---
Educated pt on importance of PEP, DB, coughing and walking as much as he can to move secretions and use lungs
[2023-03-04] MEDS: 0.9 % SODIUM CHLORIDE 1,000 ML 80 ML IV (14:30)
[2023-03-04 16:29] LABS: Glucometer 108 mg/dL (74-106)
[2023-03-04 20:26] LABS: Glucometer 120 mg/dL (74-106)
[2023-03-04] MEDS: CEFTRIAXONE 1,000 MG in 0.9 % SODIUM CHLORIDE 50 ML 100 MG IV (20:45)
[2023-03-04] MEDS: AZITHROMYCIN 500 MG in 0.9 % SODIUM CHLORIDE 250 ML 250 MG IV (22:48)
[2023-03-05] VITALS (15 sets, daily range): BP systolic 144; BP diastolic 81; PULSE 85–120; RESP 16–18; TEMP 36.3; O2SAT 86–95
[2023-03-05] MEDS: 0.9 % SODIUM CHLORIDE 1,000 ML 80 ML IV (03:50)
[2023-03-05] MEDS: IPRATROPIUM/ALBUTEROL SULFATE 3 ML AMPUL.NEB IH ×3 (03:55→11:16)
[2023-03-05] MEDS: METHYLPREDNISOLONE SOD SUCC PF 40 MG/ML VIAL IVP (05:39)
[2023-03-05 07:32] LABS: Glucometer 115 mg/dL (74-106)
[2023-03-05] MEDS: PANTOPRAZOLE SODIUM 40 MG VIAL IV (08:14)
[2023-03-05] MEDS: METOPROLOL SUCCINATE 25 MG TAB.ER.24H PO (08:14)
[2023-03-05] MEDS: LISINOPRIL 20 MG TABLET 40 MG PO (08:14)
[2023-03-05 09:50] LABS: Anion Gap 9.2; BUN Creatinine Ratio 13.8; Carbon Dioxide 33.1 mmol/L (21.0-32.0); Chloride 91 mmol/L (98-107); Estimated GFR (African America >60 (>=60); Estimated GFR (Non-African Ame >60 (>=60); Glucose 133 mg/dL (74-106); Potassium 4.3 mmol/L (3.5-5.1); Sodium 129 mmol/L (136-145)
[2023-03-05 10:21] LABS: Basophils Percent Auto 0.2 % (0.2-2.0); Hematocrit 52.7 % (42.0-54.0); Hemoglobin 17.5 g/dL (14.0-18.0); Immature Granulocytes Abs Auto 0.06 10^3/uL (0.00-0.03); Immature Granulocytes Pct Auto 0.6 % (0.0-0.5); Lymphocytes Absolute Auto 0.1 10^3/uL (1.2-3.8); Lymphocytes Percent Auto 1.2 % (20.5-60.0); Mean Corpuscular HGB Conc 33.2 g/dL (29.9-35.2); Mean Corpuscular Hemoglobin 32.2 pg (25.9-34.0); Mean Corpuscular Volume 96.9 fL (80.0-94.0); Mean Platelet Volume 8.7 fL (9.5-13.5); Monocytes Absolute Auto 0.2 10^3/uL (0.3-0.8); Monocytes Percent Auto 2.1 % (1.7-12.0); Neutrophils Absolute Auto 10.3 10^3/uL (1.4-6.5); Neutrophils Percent Auto 95.9 % (43.0-75.0); Platelet Count 184 10^3/uL (150-450); Red Blood Count 5.44 10^6/uL (4.70-6.10); White Blood Count 10.7 10^3/uL (4.0-11.0)
--- NOTE | 2023-03-05 10:25 | REH.PTDLY ---
Physical Therapy Daily Note PT Daily Note/Assess Start: 03/05/23 10:18 Freq: Status: Active Protocol: Document 03/05/23 09:19 [email or web address] (Rec: 03/05/23 10:24 PA [id number]) Physical Therapy Daily Note/Assessment Time In 09:15 Time Out 09:30 Pain Level 0 Pain Level 0 Subjective No complaints this morning. Pt is wearing 1 L of O2. Therapeutic Exercise Minutes (minutes) 7 Therapeutic Exercise Units 0 Therapeutic Exercise Treatment Instructed in B LE seated exs 10-15x ea for improved strength for ease of transfers and mobility. Therapeutic Activity Minutes (minutes) 8 Therapeutic Activity Units 1 Bed Mobility Ability Modified Independent Chair Transfer Ability Contact Guard Assist Therapeutic Activity Comments Pt uses bed rails to get out of bed. Sit to stand transfers CGA with cues for pt to push off bed and not grab for RW. Nursing in room to check O2 sats during walk test. 94% with 1 L of O2 on, 92% without O2 prior to gait. Gait training with RW CGA 100 feet with SpO2 dropping to 89% at its lowest. Pt denies feeling SOB post gait. Fatigue noted. Sit to supine transfers SBA. Total Therapy Minutes 15 Total Physical Therapy Units 1 Daily Note Summary Progressed gait distance today with pt doing well, O2 at 89% at its lowest with no O2 on which is much improved. Continue to work on gait training and distance as tolerated.
[2023-03-05 11:08] LABS: Glucometer 116 mg/dL (74-106)
--- NOTE | 2023-03-05 11:20 | P.DS_ITS ---
DS: Providers Provider Date of admission: 02/28/23 18:10 Primary care physician: Dony Rao DO Consults: 02/28/23 Consult to Reconciliation Analyst Routine Reason for consult:: Home health 03/01/23 10:44 Occupational Therapy Eval and Treat Routine Physical Therapy Eval and Treat Routine DS: Diagnosis Discharge Diagnosis (1) Acute hypercapnic respiratory failure: (2) Acute respiratory failure with hypoxia: (3) Hyponatremia: (4) Single subsegmental pulmonary embolism without acute cor pulmonale: (5) Elevated troponin: (6) COPD exacerbation: (7) Hypertension: (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 Primary diagnosis: Acute hypoxic and hypercapnic respiratory failure Secondary diagnosis: 1. Acute exacerbation of COPD 2. Hyponatremia 3. HTN 4. Elevated troponin 5. Hemophylia A DS: Summary Hospital Course Hospital Course: Reason for admission: See H&P for details. 82 y/o male with a history of COPD to ER with SOB.? Currently on vent and sedated, history obtained from chart and nursing.? Increased SOB for several days prior.? Severe SOB and chest tightness.? Called EMS and found face and hands blue.? SpO2 65% on room air.? Refused CPAP and placed on NRB.? Labs showed sodium 112 and started IV fluids.? ABD with elevated CO2.? Covid negative.? Placed on vapotherm and admitted.? Hospital course: Started solu-medrol, rocephin, zithromax, and DuoNeb.? Started IV fluids for low sodium. SOB worsened and deteriorated.? ER called to intubate.? Slowly improved. ABG showed improved CO2. Sodium slowly improved. Able to wean off vent on 03/02 and maintained normal SpO2 on nasal canula. Started PT for weakness. Able to wean off oxygen and maintain normal SpO2 on room air. Ambulating with walker. Performed walk test and patient did not qualify for home O2. Afebrile. SOB improved. Discharged home in stable condition. Will take prednisone tapered over 12 days. Complete cefdinir and zithromax. Use albuterol PRN. Resume home medication as directed. F/u with PCP in 1-2 weeks. Time Spent with Patient Time attestation: Total time spent providing and/or coordinating discharge services: Exam Constitutional Vital Signs - 24 hr 03/04/23 12:00 03/04/23 14:00 03/04/23 14:00 Temperature 97.8 F Pulse Rate 104 H 117 H 117 H Respiratory Rate 18 Blood Pressure [Left Arm] 146/82 H Pulse Oximetry 91 L Oxygen Delivery Method Room Air Oxygen Delivery Flow Rate 03/04/23 17:00 03/04/23 11:55 03/04/23 12:04 Temperature Pulse Rate 106 H Respiratory Rate Blood Pressure [Left Arm] Pulse Oximetry 91 L Oxygen Delivery Method Room Air Room Air Oxygen Delivery Flow Rate 03/04/23 12:35 03/04/23 15:25 03/04/23 15:57 Temperature Pulse Rate 117 H 109 H Respiratory Rate Blood Pressure [Left Arm] Pulse Oximetry 91 L Oxygen Delivery Method Room Air Oxygen Delivery Flow Rate 03/04/23 18:17 03/04/23 20:00 03/04/23 19:57 Temperature Pulse Rate 108 H 113 H 109 H Respiratory Rate 18 Blood Pressure [Left Arm] Pulse Oximetry 93 L Oxygen Delivery Method Room Air Oxygen Delivery Flow Rate 03/04/23 19:57 03/04/23 22:00 03/04/23 22:00 Temperature 97.8 F Pulse Rate 122 H 117 H Respiratory Rate 20 Blood Pressure [Left Arm] 160/92 H Pulse Oximetry 93 L 91 L Oxygen Delivery Method Room Air Room Air Oxygen Delivery Flow Rate 03/04/23 23:44 03/05/23 00:00 03/04/23 20:00 Temperature Pulse Rate 104 H 110 H Respiratory Rate 18 18 Blood Pressure [Left Arm] Pulse Oximetry 93 L Oxygen Delivery Method Room Air Oxygen Delivery Flow Rate 03/05/23 02:00 03/05/23 04:00 03/05/23 03:55 Temperature Pulse Rate 101 H 98 H 99 H Respiratory Rate 16 Blood Pressure [Left Arm] Pulse Oximetry 90 L Oxygen Delivery Method Room Air Oxygen Delivery Flow Rate 03/05/23 05:40 03/05/23 06:00 03/05/23 07:31 Temperature 97.4 F L Pulse Rate 85 106 H 102 H Respiratory Rate 18 Blood Pressure [Left Arm] 144/81 H Pulse Oximetry 92 L 90 L Oxygen Delivery Method Room Air Room Air Oxygen Delivery Flow Rate 03/05/23 08:03 03/05/23 08:19 03/05/23 09:20 Temperature Pulse Rate Respiratory Rate Blood Pressure [Left Arm] Pulse Oximetry 86 L 92 L 95 Oxygen Delivery Method Room Air Nasal Cannula Nasal Cannula Oxygen Delivery Flow Rate 1 1 03/05/23 09:23 03/05/23 10:18 Temperature Pulse Rate 114 H Respiratory Rate Blood Pressure [Left Arm] Pulse Oximetry 92 L Oxygen Delivery Method Room Air Oxygen Delivery Flow Rate Documenting provider has reviewed patient's vital signs: yes Common normals: no apparent distress, oriented x3 and alert HENMT Common normals: normocephalic Eye Common normals: PERRL and EOMs intact bilaterally Respiratory Common normals: clear to auscultation bilaterally Cardio Common normals: regular rate, regular rhythm, no gallops, no murmurs and no rub GI Common normals: Normal to inspection, nondistended, normoactive bowel sounds present and non-tender Extremity General: no edema DS: Data Data Completed and Pending Labs on day of discharge: Labs from last 24 hours 03/05/23 03/05/23 03/05/23 11:06 09:36 07:30 WBC 10.7 RBC 5.44 Hgb 17.5 Hct 52.7 MCV 96.9 H MCH 32.2 MCHC 33.2 RDW 13.0 Plt Count 184 MPV 8.7 L Neut % (Auto) 95.9 H Lymph % (Auto) 1.2 L [place] % (Auto) 2.1 Eos % (Auto) 0.0 L Baso % (Auto) 0.2 Neut # (Auto) 10.3 H Lymph # (Auto) 0.1 L [place] # (Auto) 0.2 L Eos # (Auto) 0.0 Baso # (Auto) 0.0 Abs Immat Gran (auto) 0.06 H Imm/Tot Granulo (auto) 0.6 H Sodium 129 L Potassium 4.3 Chloride 91 L Carbon Dioxide 33.1 H Anion Gap 9.2 BUN 13.0 Creatinine 0.94 Est GFR ( Amer) >60 Est GFR (Non-Af Amer) >60 BUN/Creatinine Ratio 13.8 Glucose 133 H Calcium 9.0 POC Glucose 116 H 115 H 03/04/23 03/04/23 03/04/23 20:23 16:28 11:44 WBC RBC Hgb Hct MCV MCH MCHC RDW Plt Count MPV Neut % (Auto) Lymph % (Auto) [place] % (Auto) Eos % (Auto) Baso % (Auto) Neut # (Auto) Lymph # (Auto) [place] # (Auto) Eos # (Auto) Baso # (Auto) Abs Immat Gran (auto) Imm/Tot Granulo (auto) Sodium Potassium Chloride Carbon Dioxide Anion Gap BUN Creatinine Est GFR ( Amer) Est GFR (Non-Af Amer) BUN/Creatinine Ratio Glucose Calcium POC Glucose 120 H 108 H 117 H Preliminary micro results at discharge 02/28/23 14:20 Blood Culture Result 1 - Preliminary Blood NO GROWTH AT 36-48 HOURS. FINAL TO FOLLOW. 02/28/23 14:32 Blood Culture Result 1 - Preliminary Blood NO GROWTH AT 36-48 HOURS. FINAL TO FOLLOW. Discharge Plan Discharge Condition: Fair Discharge Medications: New prednisone 10 mg tablets,dose pack 10 mg PO DAILY Qty: 39 0RF Rx Instructions: 6 PO daily x 3 days, then 4 PO daily x 3 days, then 2 PO daily x 3 days, then 1 PO daily x 3 days azithromycin [Zithromax] 250 mg tablet 250 mg PO DAILY 4 Days Qty: 4 0RF Rx Instructions: start on day 2 of therapy cefdinir 300 mg capsule 300 mg PO BID 5 Days Qty: 10 0RF albuterol sulfate 90 mcg/actuation HFA aerosol inhaler 2 inh inhalation Q4H PRN (Reason: shortness of breath or wheezing) Qty: 8.5 0RF Continued lisinopril 40 mg tablet 40 mg PO DAILY metoprolol succinate 25 mg tablet extended release 24 hr 25 mg PO DAILY Activity: resume usual activities as tolerated Diet: advance to your usual diet Forms: Portal Instructions Follow Up Appointments: Follow up appointment with Dr. Rao on March 11 @ 1:45pm
--- NOTE | 2023-03-05 11:42 | SWNOTE1 ---
SW spoke with pt and in room. They are agreeable to home health. '[facility] and second is [facility]. SW sent referral to [facility].
--- NOTE | 2023-03-05 12:05 | CM.NOTE ---
Rounds made with Dr. Arce, ok to discharge to home today. Dr. Arce spoke with the pt regarding importance of HH to continue strengthening. Pt would like to discuss with his . Walk test completed this AM by RN. Pt does not qualify for home oxygen.
--- NOTE | 2023-03-05 12:46 | SWNOTE1 ---
[facility] DC order sent. SW notified family and pt's .
--- NOTE | 2023-03-05 13:03 | CM.NOTE ---
Important Message From Medicare discussed with pt and , both verbalizes understanding and signs paper for pt. Original given to pt and copy placed on pt's chart.
[2023-03-05 16:08] LABS: Osmolality, Urine 619 mOsmol/kg (.)
--- NOTE | 2023-03-06 15:50 | CM.DCFOLLOWU ---
Person spoke with:patient's How are you feeling? patient doing well How is your pain? no pain Did you understand your discharge instructions? yes Do you have any questions about your discharge instructions? no Were you given any prescriptions at discharge? yes Were you able to get your prescriptions filled? yes Do you understand how to take your medications as ordered? yes Do you have any questions about your follow up appointment and do you plan to keep your follow up appointment? no questions, follow up on 03/11/23 Is there anything else that you would like to discuss? no Questions/Comments/Concerns/Other: Nurses were great.
== END 2023-03-05 13:18 | disposition home health service (06) | DRG 208 ==
LOC: ER 17:09 → ICU 18:25 → MS 03-04 10:53
PROVIDERS: Internal Medicine; Physician Assistant; Admitting Provider Family Medicine; Emergency Provider Emergency Medicine; PCP Internal Medicine; Visit Provider Family Medicine
DX: J96.01 Acute respiratory failure with hypoxia (principal); I26.93 Single subsegmental thrombotic pulmonary embolism without acute cor pulmonale; E87.1 Hypo-osmolality and hyponatremia; J44.1 Chronic obstructive pulmonary disease with (acute) exacerbation; D68.311 Acquired hemophilia; J96.02 Acute respiratory failure with hypercapnia; R77.8 Other specified abnormalities of plasma proteins; I10 Essential (primary) hypertension; Z86.718 Personal history of other venous thrombosis and embolism; Z79.899 Other long term (current) drug therapy; F17.210 Nicotine dependence, cigarettes, uncomplicated; Z20.822 Contact with and (suspected) exposure to COVID-19; Z91.199 Patient's noncompliance with other medical treatment and regimen due to unspecified reason; Z95.828 Presence of other vascular implants and grafts
CPT/HCPCS: 36415; 36569; 36592; 36600; 51702; 71045; 71275; 80048; 80053; 80061; 82375; 82805; 82948; 83036; 83050; 83880; 83935; 84295; 84300; 84443; 84484; 85007; 85025; 85610; 85730; 87040; 87635; 87811; 93005; 93306; 94002; 94003; 94640; 94660; 94667; 94668; 94761; 94799; 96365; 96366; 96368; 96372; 96375; 96376; 97161; 97165; 97530; 99285; C1887; J0456; J2920; J2930; Q3014; Q9967

== ENCOUNTER 2023-03-20 11:19 | Outpatient (OUT) | payer MEDICARE, OTHER, SELFPAY ==
[2023-03-20 12:46] LABS: Alanine Aminotransferase 35 U/L (16-63); Albumin Level 3.6 g/dL (3.4-5.0); Alkaline Phosphatase 77 U/L (46-116); Anion Gap 11.2; Aspartate Amino Transferase 33 U/L (15-37); BUN Creatinine Ratio 21.6; Bilirubin Total 0.5 mg/dL (0.2-1.0); Calcium 9.2 mg/dL (8.5-10.1); Carbon Dioxide 32.1 mmol/L (21.0-32.0); Chloride 97 mmol/L (98-107); Estimated GFR (African America >60 (>=60); Estimated GFR (Non-African Ame >60 (>=60); Globulin 3.5 g/dL; Glucose 138 mg/dL (74-106); Potassium 4.3 mmol/L (3.5-5.1); Sodium 136 mmol/L (136-145); Thyroid Stimulating Hormone 1.588 uIU/mL (0.358-3.740); Total Protein 7.1 g/dL (6.4-8.2)
[2023-03-20 14:59] LABS: Sodium Urine Random 42 mmol/L (30-90)
[2023-03-21 05:07] LABS: Triiodothyronine (T3) 94 ng/dL (71-180)
[2023-03-22 16:11] LABS: Osmolality, Urine 502 mOsmol/kg (.)
== END 2023-03-20 11:20 | disposition home or self-care (01) ==
LOC: LAB 11:22
PROVIDERS: PCP Internal Medicine; Visit Provider Internal Medicine
DX: I10 Essential (primary) hypertension (principal); E87.1 Hypo-osmolality and hyponatremia; E03.8 Other specified hypothyroidism; R79.89 Other specified abnormal findings of blood chemistry
CPT/HCPCS: 36415; 80053; 83930; 83935; 84300; 84439; 84443; 84480

== ENCOUNTER 2023-06-02 12:51 | Outpatient (OUT) | payer MEDICARE, OTHER, SELFPAY ==
--- NOTE | 2023-06-02 13:05 | CT_ITS ---
[address] [address] Patient Name: ELIDA JERONIMO MRN: [id number] date: 1940 Sex: M Assigned Patient Location: CT Current Patient Location: Accession/Order Number: [id number] Exam Date: 06/02/2023 13:08 Report Date: 06/03/2023 07:49 At the request of: WOODY MOORE Procedure: CT chest wo con EXAMINATION: CT chest wo con HISTORY: Pulmonary Nodule R91.1 COMPARISON: 03/04/2023 plain x-ray TECHNIQUE: Multi-planar CT images were created with IV contrast. Axial, Coronal, and Sagittal images. Dose reduction techniques were achieved by using automated exposure control and/or adjustment of mA and/or kV according to patient size and/or use of iterative reconstruction technique. FINDINGS: LUNGS: Scattered subcentimeter pulmonary nodules the largest in the left upper lobe measures 4.5 mm, axial image #51. Area of semisolid wedge-shaped density left posterior apex axial image #40 measures 0.9 x 0.5 cm. Additional mild scattered linear opacities likely atelectasis and/or scarring. PLEURA: No mass, effusion, or pneumothorax. VASCULATURE: No abnormality. AMTTHEW: No mass or adenopathy. MEDIASTINUM: No mass or adenopathy. CARDIAC: No enlargement or pericardial effusion. Moderate coronary atherosclerosis AORTA: No aortic aneurysm. Moderate diffuse atherosclerosis CHEST WALL: No mass or axillary adenopathy. BONES: No bone lesion or fracture. LIMITED ABDOMEN: No suspicious findings. Limited images of the upper abdomen. OTHER: Negative. CT/CT chest wo con IMPRESSION: Scattered subcentimeter pulmonary solid and semisolid nodules measuring up to 9 x 5 mm, nonspecific. Electronically authenticated by: BRIAN SRIVASTAVA Date: 06/03/2023 07:49
== END 2023-06-02 12:52 | disposition home or self-care (01) ==
LOC: CT 12:51
PROVIDERS: PCP Internal Medicine; Visit Provider Internal Medicine
DX: R91.1 Solitary pulmonary nodule (principal); R91.8 Other nonspecific abnormal finding of lung field
CPT/HCPCS: 71250

== ENCOUNTER 2023-12-23 12:44 | Outpatient (OUT) | payer MEDICARE, OTHER, SELFPAY ==
--- NOTE | 2023-12-23 13:28 | CT_ITS ---
[address] [address] Patient Name: ELIDA JERONIMO MRN: [id number] date: 1940 Sex: M Assigned Patient Location: CT Current Patient Location: CT Accession/Order Number: [id number] Exam Date: 12/23/2023 13:18 Report Date: 12/23/2023 15:58 At the request of: WOODY MOORE Procedure: CT chest wo con EXAMINATION: CT chest wo con HISTORY: Lung Nodule R91.1 COMPARISON: 06/02/2023 TECHNIQUE: Multi-planar CT images were created with IV contrast. Axial, Coronal, and Sagittal images. Dose reduction techniques were achieved by using automated exposure control and/or adjustment of mA and/or kV according to patient size and/or use of iterative reconstruction technique. FINDINGS: LUNGS: Scattered punctate subcentimeter pulmonary nodules stable both in number and size from the prior exam. Linear opacities in the right middle lobe and lingula, atelectasis and/or scar. No new significant pulmonary nodule or mass PLEURA: No mass, effusion, or pneumothorax. VASCULATURE: No abnormality. MATTHEW: No mass or adenopathy. MEDIASTINUM: No mass or adenopathy. CARDIAC: No enlargement or pericardial effusion. Moderate coronary atherosclerosis AORTA: No aortic aneurysm. Moderate atherosclerosis CHEST WALL: No mass or axillary adenopathy. BONES: No bone lesion or fracture. LIMITED ABDOMEN: No suspicious findings. Limited images of the upper abdomen. OTHER: Negative. CT/CT chest wo con IMPRESSION: Stable scattered subcentimeter pulmonary nodules Electronically authenticated by: BRIAN SRIVASTAVA Date: 12/23/2023 15:58
== END 2023-12-23 12:45 | disposition home or self-care (01) ==
LOC: CT 12:44
PROVIDERS: PCP Internal Medicine; Visit Provider Internal Medicine
DX: R91.1 Solitary pulmonary nodule (principal)
CPT/HCPCS: 71250

== ENCOUNTER 2024-12-14 17:37 | Emergency (ER) | payer MEDICARE, OTHER, SELFPAY ==
[2024-12-14 17:45] VITALS: BP 166/92; PULSE 91; O2SAT 93
--- NOTE | 2024-12-14 18:26 | ED_ITS ---
Documented by User: Cecilio Mejia MD 12/14/24 18:28 HPI HPI - General Adult General Chief complaint: Epistaxis Stated complaint: nosebleed Time Seen by Provider: 12/14/24 18:01 Source: patient Mode of arrival: walk-in Limitations: no limitations History of Present Illness HPI narrative: This 84-year-old male presents chief complaint of nosebleed. Patient states she has had some nosebleed off and on the last week but today became more profuse. He denies injury to the nose all of the bleeding is from the left nostril. He denies chest pain or shortness of breath. He quit smoking cigarettes after 70 years and has poor exercise tolerance and easily gets short of breath.. He has a past history of acquired hemophilia A that was treated with prednisone and cyclophosphamide. He is currently not on those meds.. Related Data Home Medications ?Medication ?Instructions ?Recorded ?Confirmed lisinopril 40 mg tablet 40 mg PO DAILY 02/28/23 12/14/24 metoprolol succinate 25 mg 25 mg PO DAILY 02/28/23 12/14/24 tablet,extended release 24 hr Allergies Allergy/AdvReac Type Severity Reaction Status Date / Time No Known Drug Allergies Allergy Verified 12/14/24 17:51 Opioid HPI Opioid Management Most Recent Opioid Data: Last Pain Scale 0 03/05/23 09:19 03/05/23 Last Pain Intensity 0 03/05/23 09:19 03/05/23 Review of Systems ROS Status of ROS 10 or more systems reviewed and unremark able except as noted in history and below PFSH PFS Medical History H/O deep venous thrombosis ?Z86.718 - Personal history of other venous thrombosis and embolism (ICD-10) Diabetes ?E11.9 - Type 2 diabetes mellitus without complications (ICD-10) History of mechanical ventilation ?Z92.89 - Personal history of other medical treatment (ICD-10) 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) Hyponatremia ?E87.1 - Hypo-osmolality and hyponatremia (ICD-10) Hypertension ?I10 - Essential (primary) hypertension (ICD-10) COPD (chronic obstructive pulmonary disease) ?J44.9 - Chronic obstructive pulmonary disease, unspecified (ICD-10) 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 Speech and mentation are clear and intact. There is small amount of blood oozing from the left nasal cavity. There is no bleeding from the right nasal cavity. No petechiae are seen on the face. There are no bruises on the upper extremities. Neck is supple. Lung sounds are diminished but grossly clear. Heart has regular rate and rhythm. Abdomen soft and benign. Lower extremities warm and dry and there is no pedal edema. Constitutional Vital Signs, click to edit/add: Last Vital Signs Pulse 91 H 12/14/24 17:45 Resp 20 12/14/24 17:45 BP 166/92 H 12/14/24 17:45 Pulse Ox 93 L 12/14/24 17:45 O2 Del Method Room Air 12/14/24 17:45 Course Vital Signs Vital signs: Vital Signs Pulse Rate 91 H 12/14/24 17:45 Respiratory Rate 20 12/14/24 17:45 Blood Pressure 166/92 H 12/14/24 17:45 Pulse Oximetry 93 L 12/14/24 17:45 Oxygen Delivery Method Room Air 12/14/24 17:45 Pulse Rate 91 H 12/14/24 17:45 Respiratory Rate 20 12/14/24 17:45 Blood Pressure 166/92 H 12/14/24 17:45 Pulse Oximetry 93 L 12/14/24 17:45 Oxygen Delivery Method Room Air 12/14/24 17:45 Medical Decision Making MDM Narrative Medical decision making narrative: Patient was made to blow out his nose and a large blood clot came out of the left nasal cavity. Afrin was sprayed in the left nasal cavity and on examination the bleeding site was found to be anterior in location. A 5.5 cm Rhino Rocket was soaked in sterile water then inserted in the left nasal cavity. The balloon was inflated to the point of tolerance. Patient's bleeding has stopped. Baseline labs ordered results of which are pending at the time of this dictation. Care will be transferred to oncoming physician at change of shift for further evaluation and eventual disposition. Lab Data Labs: Lab Results 12/14/24 Range/Units 18:20 WBC 7.3 (4.0-11.0) 10^3/uL RBC 4.23 L (4.70-6.10) 10^6/uL Hgb 14.2 (14.0-18.0) g/dL Hct 40.9 L (42.0-54.0) % MCV 96.7 H (80.0-94.0) fL MCH 33.6 (25.9-34.0) pg MCHC 34.7 (29.9-35.2) g/dL RDW 14.3 (11.0-15.0) % Plt Count 242 (150-450) 10^3/uL MPV 8.5 L (9.5-13.5) fL Neut % (Auto) 74.3 (43.0-75.0) % Lymph % (Auto) 11.3 L (20.5-60.0) % [place] % (Auto) 6.7 (1.7-12.0) % Eos % (Auto) 7.1 H (0.9-7.0) % Baso % (Auto) 0.3 (0.2-2.0) % Neut # (Auto) 5.4 (1.4-6.5) 10^3/uL Lymph # (Auto) 0.8 L (1.2-3.8) 10^3/uL [place] # (Auto) 0.5 (0.3-0.8) 10^3/uL Eos # (Auto) 0.5 (0.0-0.7) 10^3/uL Baso # (Auto) 0.0 (0.0-0.1) 10^3/uL Abs Immat Gran (auto) 0.02 (0.00-0.03) 10^3/uL Imm/Tot Granulo (auto) 0.3 (0.0-0.5) % PT 9.8 (9.0-11.6) sec INR <0.93 APTT 35.0 (22.3-36.2) sec Sodium 130 L (136-145) mmol/L Potassium 4.5 (3.5-5.1) mmol/L Chloride 99 (98-107) mmol/L Carbon Dioxide 28.7 (21.0-32.0) mmol/L Anion Gap 6.8 BUN 23.0 H (7.0-18.0) mg/dL Creatinine 0.80 (0.70-1.30) mg/dL Est GFR ( Amer) >60 (>=60 mL/min/1.73m^2) Est GFR (Non-Af Amer) >60 (>=60 mL/min/1.73m^2) BUN/Creatinine Ratio 28.8 Glucose 103 (74-106) mg/dL Calcium 9.4 (8.5-10.1) mg/dL Total Bilirubin 0.5 (0.2-1.0) mg/dL AST 17 (15-37) U/L ALT 18 (16-63) U/L Alkaline Phosphatase 99 (46-116) U/L Total Protein 7.3 (6.4-8.2) g/dL Albumin 3.8 (3.4-5.0) g/dL Globulin 3.5 g/dL Albumin/Globulin Ratio 1.1 Discharge Plan Discharge Chief Complaint: Epistaxis Clinical Impression: Epistaxis Patient Disposition: Home, Self-Care Prescriptions / Home Meds: No Action lisinopril 40 mg tablet 40 mg PO DAILY metoprolol succinate 25 mg tablet extended release 24 hr 25 mg PO DAILY Print Language: [place] Instructions: Nosebleed (ED) Additional Instructions: follow up with Dr Rao in the next couple of days for recheck Referrals: Dony Rao DO [Primary Care Provider] - 1 week Documented by User: Rodrigo Zhao MD 12/14/24 19:31 HPI HPI - General Adult General Chief complaint: Epistaxis Stated complaint: nosebleed Time Seen by Provider: 12/14/24 18:01 Related Data Home Medications ?Medication ?Instructions ?Recorded ?Confirmed lisinopril 40 mg tablet 40 mg PO DAILY 02/28/23 12/14/24 metoprolol succinate 25 mg 25 mg PO DAILY 02/28/23 12/14/24 tablet,extended release 24 hr Allergies Allergy/AdvReac Type Severity Reaction Status Date / Time No Known Drug Allergies Allergy Verified 12/14/24 17:51 Opioid HPI Opioid Management Most Recent Opioid Data: Last Pain Scale 0 03/05/23 09:19 03/05/23 Last Pain Intensity 0 03/05/23 09:19 03/05/23 [facility] Medical History H/O deep venous thrombosis ?Z86.718 - Personal history of other venous thrombosis and embolism (ICD-10) Diabetes ?E11.9 - Type 2 diabetes mellitus without complications (ICD-10) History of mechanical ventilation ?Z92.89 - Personal history of other medical treatment (ICD-10) 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) Hyponatremia ?E87.1 - Hypo-osmolality and hyponatremia (ICD-10) Hypertension ?I10 - Essential (primary) hypertension (ICD-10) COPD (chronic obstructive pulmonary disease) ?J44.9 - Chronic obstructive pulmonary disease, unspecified (ICD-10) 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) COPD exacerbation ?J44.1 - Chronic obstructive pulmonary disease with (acute) exacerbation (I CD-10) Surgical History S/P IVC filter ?Z95.828 - Presence of other vascular implants and grafts (ICD-10) Social History Smoking status: Current every day smoker Exam Constitutional Vital Signs, click to edit/add: Last Vital Signs Pulse 91 H 12/14/24 17:45 Resp 20 12/14/24 17:45 BP 166/92 H 12/14/24 17:45 Pulse Ox 93 L 12/14/24 17:45 O2 Del Method Room Air 12/14/24 17:45 Course Vital Signs Vital signs: Vital Signs Pulse Rate 91 H 12/14/24 17:45 Respiratory Rate 20 12/14/24 17:45 Blood Pressure 166/92 H 12/14/24 17:45 Pulse Oximetry 93 L 12/14/24 17:45 Oxygen Delivery Method Room Air 12/14/24 17:45 Pulse Rate 91 H 12/14/24 17:45 Respiratory Rate 20 12/14/24 17:45 Blood Pressure 166/92 H 12/14/24 17:45 Pulse Oximetry 93 L 12/14/24 17:45 Oxygen Delivery Method Room Air 12/14/24 17:45 Medical Decision Making MDM Narrative Medical decision making narrative: Patient was made to blow out his nose and a large blood clot came out of the left nasal cavity. Afrin was sprayed in the left nasal cavity and on examination the bleeding site was found to be anterior in location. A 5.5 cm Rhino Rocket was soaked in sterile water then inserted in the left nasal cavity. The balloon was inflated to the point of tolerance. Patient's bleeding has stopped. Baseline labs ordered results of which are pending at the time of this dictation. Care will be transferred to oncoming physician at change of shift for further evaluation and eventual disposition. care transferred at change of shift. labs pending and values are acceptable. No further bleeding and patient will discharge to follow up with his doctor Lab Data Labs: Lab Results 12/14/24 Range/Units 18:20 WBC 7.3 (4.0-11.0) 10^3/uL RBC 4.23 L (4.70-6.10) 10^6/uL Hgb 14.2 (14.0-18.0) g/dL Hct 40.9 L (42.0-54.0) % MCV 96.7 H (80.0-94.0) fL MCH 33.6 (25.9-34.0) pg MCHC 34.7 (29.9-35.2) g/dL RDW 14.3 (11.0-15.0) % Plt Count 242 (150-450) 10^3/uL MPV 8.5 L (9.5-13.5) fL Neut % (Auto) 74.3 (43.0-75.0) % Lymph % (Auto) 11.3 L (20.5-60.0) % [place] % (Auto) 6.7 (1.7-12.0) % Eos % (Auto) 7.1 H (0.9-7.0) % Baso % (Auto) 0.3 (0.2-2.0) % Neut # (Auto) 5.4 (1.4-6.5) 10^3/uL Lymph # (Auto) 0.8 L (1.2-3.8) 10^3/uL [place] # (Auto) 0.5 (0.3-0.8) 10^3/uL Eos # (Auto) 0.5 (0.0-0.7) 10^3/uL Baso # (Auto) 0.0 (0.0-0.1) 10^3/uL Abs Immat Gran (auto) 0.02 (0.00-0.03) 10^3/uL Imm/Tot Granulo (auto) 0.3 (0.0-0.5) % PT 9.8 (9.0-11.6) sec INR <0.93 APTT 35.0 (22.3-36.2) sec Sodium 130 L (136-145) mmol/L Potassium 4.5 (3.5-5.1) mmol/L Chloride 99 (98-107) mmol/L Carbon Dioxide 28.7 (21.0-32.0) mmol/L Anion Gap 6.8 BUN 23.0 H (7.0-18.0) mg/dL Creatinine 0.80 (0.70-1.30) mg/dL Est GFR ( Amer) >60 (>=60 mL/min/1.73m^2) Est GFR (Non-Af Amer) >60 (>=60 mL/min/1.73m^2) BUN/Creatinine Ratio 28.8 Glucose 103 (74-106) mg/dL Calcium 9.4 (8.5-10.1) mg/dL Total Bilirubin 0.5 (0.2-1.0) mg/dL AST 17 (15-37) U/L ALT 18 (16-63) U/L Alkaline Phosphatase 99 (46-116) U/L Total Protein 7.3 (6.4-8.2) g/dL Albumin 3.8 (3.4-5.0) g/dL Globulin 3.5 g/dL Albumin/Globulin Ratio 1.1 Discharge Plan Discharge Chief Complaint: Epistaxis Clinical Impression: Epistaxis Patient Disposition: Home, Self-Care Prescriptions / Home Meds: No Action lisinopril 40 mg tablet 40 mg PO DAILY metoprolol succinate 25 mg tablet extended release 24 hr 25 mg PO DAILY Print Language: [place] Instructions: Nosebleed (ED) Additional Instructions: follow up with Dr Rao in the next couple of days for recheck Referrals: Dony Rao DO [Primary Care Provider] - 1 week
[2024-12-14] MEDS: OXYMETAZOLINE HCL 0.05% NASAL SPRAY 2 SPRAY NS (18:32)
[2024-12-14 18:34] LABS: Basophils Percent Auto 0.3 % (0.2-2.0); Eosinophils Absolute Auto 0.5 10^3/uL (0.0-0.7); Eosinophils Percent Auto 7.1 % (0.9-7.0); Hematocrit 40.9 % (42.0-54.0); Hemoglobin 14.2 g/dL (14.0-18.0); Immature Granulocytes Abs Auto 0.02 10^3/uL (0.00-0.03); Immature Granulocytes Pct Auto 0.3 % (0.0-0.5); Lymphocytes Absolute Auto 0.8 10^3/uL (1.2-3.8); Lymphocytes Percent Auto 11.3 % (20.5-60.0); Mean Corpuscular HGB Conc 34.7 g/dL (29.9-35.2); Mean Corpuscular Hemoglobin 33.6 pg (25.9-34.0); Mean Corpuscular Volume 96.7 fL (80.0-94.0); Mean Platelet Volume 8.5 fL (9.5-13.5); Monocytes Absolute Auto 0.5 10^3/uL (0.3-0.8); Monocytes Percent Auto 6.7 % (1.7-12.0); Neutrophils Absolute Auto 5.4 10^3/uL (1.4-6.5); Neutrophils Percent Auto 74.3 % (43.0-75.0); Platelet Count 242 10^3/uL (150-450); Red Blood Count 4.23 10^6/uL (4.70-6.10); Red Cell Distribution Width 14.3 % (11.0-15.0); White Blood Count 7.3 10^3/uL (4.0-11.0)
[2024-12-14 19:04] LABS: Prothrombin Time 9.8 sec (9.0-11.6)
[2024-12-14 19:06] LABS: Alanine Aminotransferase 18 U/L (16-63); Albumin Globulin Ratio 1.1; Albumin Level 3.8 g/dL (3.4-5.0); Alkaline Phosphatase 99 U/L (46-116); Anion Gap 6.8; Aspartate Amino Transferase 17 U/L (15-37); BUN Creatinine Ratio 28.8; Bilirubin Total 0.5 mg/dL (0.2-1.0); Calcium 9.4 mg/dL (8.5-10.1); Carbon Dioxide 28.7 mmol/L (21.0-32.0); Chloride 99 mmol/L (98-107); Estimated GFR (African America >60 (>=60 mL/min/1.73m^2); Estimated GFR (Non-African Ame >60 (>=60 mL/min/1.73m^2); Globulin 3.5 g/dL; Glucose 103 mg/dL (74-106); Potassium 4.5 mmol/L (3.5-5.1); Sodium 130 mmol/L (136-145); Total Protein 7.3 g/dL (6.4-8.2)
[2024-12-14 19:11] LABS: INR <0.93
[2024-12-14 19:36] VITALS: BP 156/87; PULSE 94; O2SAT 94
== END 2024-12-14 19:38 | disposition home or self-care (01) ==
PROVIDERS: Emergency Medicine; Emergency Provider Internal Medicine; PCP Internal Medicine
DX: R04.0 Epistaxis (principal); Z87.891 Personal history of nicotine dependence
CPT/HCPCS: 30901; 36415; 80053; 85025; 85610; 85730; 99283

== ENCOUNTER 2024-12-16 16:31 | Emergency (ER) | payer MEDICARE, OTHER, SELFPAY ==
[2024-12-16 16:34] VITALS: BP 163/91; PULSE 72; TEMP 36.5; O2SAT 98; BMI 22.0
== END 2024-12-16 16:45 | disposition left against medical advice (07) ==
LOC: ER 16:33
PROVIDERS: Emergency Provider Emergency Medicine; PCP Internal Medicine
DX: Z53.21 Procedure and treatment not carried out due to patient leaving prior to being seen by health care provider (principal)

== ENCOUNTER 2024-12-18 12:49 | Emergency (ER) | payer MEDICARE, OTHER, SELFPAY ==
[2024-12-18 12:52] VITALS: BP 151/74; PULSE 74; TEMP 36.7; O2SAT 96; BMI 22.0
--- OUTSIDE RECORDS SUMMARY | 2024-12-18 12:57 | XMS_ITS | CCD ---
Author Organization [facility]iniSy[facility] Care Team Providers Care Mirror Silverer Name Role Phone Dony Moore Unavailable TERESA, DR MCKAY Admitting Unavailable BALL, DR MCKAY Attending Unavailable BALL, DR MCKAY Primary Care Unavailable BALL, DR MCKAY Consulting Unavailable NEFCY, YINA Consulting Unavailable BALL, DR MCKAY Admitting Unavailable BALL, DR MCKAY Attending Unavailable BALL, DR MCKAY Referring Unavailable BALL, DR MCKAY Primary Care Unavailable BALL, DR MCKAY Consulting Unavailable Unavailable Primary Care Provider Unavailabl e Haylee, Ludmila S. Attending Unavailable Haylee, Ludmila S. Attending Unavailable HAYLEE, LUDMILA Referring Unavailable PROVIDER, UNKNOWN Attending Unavailable LAURA, GIRISH Admitting Unavailable HAYLEE, LUDMILA Referring Unavailable PROVIDER, UNKNOWN Attending Unavailable LAURA, GIRISH Admitting Unavailable HAYLEE, LUDMILA Referring Unavailable PROVIDER, UNKNOWN Attending Unavailable LAURA, GIRISH Admitting Unavailable HAYLEE, LUDMILA Referring Unavailable PROVIDER, UNKNOWN Attending Unavailable LAURA, GIRISH Admitting Unavailable HAYLEE, LUDMILA Referring Unavailable PROVIDER, UNKNOWN Attending Unavailable LAURA, GIRISH Admitting Unavailable HAYLEE, LUDMILA Referring Unavailable PROVIDER, UNKNOWN Attending Unavailable LAURA, GIRISH Admitting Unavailable HAYLEE, LUDMILA Referring Unavailable PROVIDER, UNKNOWN Attending Unavailable LAURA, GIRISH Admitting Unavailable HAYLEE, LUDMILA Referring Unavailable PROVIDER, UNKNOWN Attending Unavailable LAURA, GIRISH Admitting Unavailable HAYLEE, LUDMILA Referring Unavailable PROVIDER, UNKNOWN Attending Unavailable LAURA, GIRISH Admitting Unavailable HAYLEE, LUDMILA Referring Unavailable PROVIDER, UNKNOWN Attending Unavailable LAURA, GIRISH Admitting Unavailable HAYLEE, LUDMILA Referring Unavailable PROVIDER, UNKNOWN Attending Unavailable LAURA, GIRISH Admitting Unavailable HAYLEE, LUDMILA Referring Unavailable PROVIDER, UNKNOWN Attending Unavailable LAURA, GIRISH Admitting Unavailable PROVIDER, UNKNOWN Attending Unavailable LAURA, GIRISH Admitting Unavailable HAYLEE, LUDMILA Referring Unavailable HAYLEE, LUDMILA Referring Unavailable PROVIDER, UNKNOWN Attending Unavailable LAURA, GIRISH Admitting Unavailable HAYLEE, LUDMILA Referring Unavailable PROVIDER, UNKNOWN Attending Unavailable LAURA, GIRISH Admitting Unavailable HAYLEE, LUDMILA Referring Unavailable PROVIDER, UNKNOWN Attending Unavailable LAURA, GIRISH Admitting Unavailable HAYLEE, LUDMILA Referring Unavailable PROVIDER, UNKNOWN Attending Unavailable LAURA, GIRISH Admitting Unavailable HAYLEE, LUDMILA Referring Unavailable PROVIDER, UNKNOWN Attending Unavailable LAURA, GIRISH Admitting Unavailable PROVIDER, UNKNOWN Attending Unavailable PROVIDER, UNKNOWN Admitting Unavailable HAYLEE, LUDMILA Referring Unavailable PROVIDER, UNKNOWN Attending Unavailable LAURA, GIRISH Admitting Unavailable HAYLEE, LUDMILA Referring Unavailable PROVIDER, UNKNOWN Attending Unavailable LAURA, GIRISH Admitting Unavailable HAYLEE, LUDMILA Referring Unavailable PROVIDER, UNKNOWN Attending Unavailable LAURA, GIRISH Admitting Unavailable HAYLEE, LUDMILA Referring Unavailable PROVIDER, UNKNOWN Attending Unavailable LAURA, GIRISH Admitting Unavailable HAYLEE, LUDMILA Referring Unavailable PROVIDER, UNKNOWN Attending Unavailable LAURA, GIRISH Admitting Unavailable HAYLEE, LUDMILA Referring Unavailable PROVIDER, UNKNOWN Attending Unavailable LAURA, GIRISH Admitting Unavailable HAYLEE, LUDMILA Referring Unavailable LAURA, GIRISH Admitting Unavailable HAYLEE, LUDMILA Referring Unavailable PROVIDER, UNKNOWN Attending Unavailable LAURA, GIRISH Admitting Unavailable HAYLEE, LUDMILA Referring Unavailable PROVIDER, UNKNOWN Attending Unavailable LAURA, GIRISH Admitting Unavailable HAYLEE, LUDMILA Referring Unavailable PROVIDER, UNKNOWN Attending Unavailable LAURA, GIRISH Admitting Unavailable HAYLEE, LUDMILA Referring Unavailable PROVIDER, UNKNOWN Attending Unavailable LAURA, GIRISH Admitting Unavailable HAYLEE, LUDMILA Referring Unavailable PROVIDER, UNKNOWN Attending Unavailable LAURA, GIRISH Admitting Unavailable HAYLEE, LUDMILA Referring Unavailable PROVIDER, UNKNOWN Attending Unavailable LAURA, GIRISH Admitting Unavailable HAYLEE, LUDMILA Referring Unavailable PROVIDER, UNKNOWN Attending Unavailable LAURA, GIRISH Admitting Unavailable HAYLEE, LUDMILA Referring Unavailable PROVIDER, UNKNOWN Attending Unavailable LAURA, GIRISH Admitting Unavailable HAYLEE, LUDMILA Referring Unavailable PROVIDER, UNKNOWN Attending Unavailable LAURA, GIRISH Admitting Unavailable HAYLEE, LUDMILA Referring Unavailable PROVIDER, UNKNOWN Attending Unavailable LAURA, GIRISH Admitting Unavailable HAYLEE, LUDMILA Referring Unavailable PROVIDER, UNKNOWN Attending Unavailable LAURA, GIRISH Admitting Unavailable HAYLEE, LUDMILA Referring Unavailable PROVIDER, UNKNOWN Attending Unavailable LAURA, GIRISH Admitting Unavailable HAYLEE, LUDMILA Referring Unavailable PROVIDER, UNKNOWN Attending Unavailable LAURA, GIRISH Admitting Unavailable HAYLEE, LUDMILA Referring Unavailable PROVIDER, UNKNOWN Attending Unavailable LAURA, GIRISH Admitting Unavailable HAYLEE, LUDMILA Referring Unavailable PROVIDER, UNKNOWN Attending Unavailable LAURA, GIRISH Admitting Unavailable HAYLEE, LUDMILA Referring Unavailable PROVIDER, UNKNOWN Attending Unavailable LAURA, GIRISH Admitting Unavailable HAYLEE, LUDMILA Referring Unavailable PROVIDER, UNKNOWN Attending Unavailable LAURA, GIRISH Admitting Unavailable HAYLEE, LUDMILA Referring Unavailable PROVIDER, UNKNOWN Attending Unavailable LAURA, GIRISH Admitting Unavailable PROVIDER, UNKNOWN Attending Unavailable PROVIDER, UNKNOWN Admitting Unavailable PROVIDER, UNKNOWN Admitting Unavailable HAYLEE, LUDMILA Referring Unavailable PROVIDER, UNKNOWN Attending Unavailable LAURA, GIRISH Admitting Unavailable HAYLEE, LUDMILA Referring Unavailable PROVIDER, UNKNOWN Attending Unavailable LAURA, GIRISH Admitting Unavailable PAU SANCHEZ Attending Unavailable LAURA, GIRISH Admitting Unavailable [phone], IP TEAM TRAUMA Consulting Unavail able HAYLEE, LUDMILA Referring Unavailable REQUEST, IP PHYSICAL THERAPY SERVICE Consulting Unavailable REQUEST, IP OCCUPATIONAL THERAPY SERVICE Consult ing Unavailable CONSULT, IP ORTHOPAEDICS GENERAL Consulting Unavailable CONSULT, IP ANESTHESIA Consulting Unavailab le CONSULT, IP PALLIATIVE CARE Consulting Unav DONY Eason Primary Care Physician Leatha Spring Admitting Unavailable Leatha Spring Attending Unavailable Fiordaliza Jara Referring Unavailable Medications Current Medications Medication Drug Class(es) Dates Sig (Normalized) Sig (Original) acetaminophen 500 mg oral tablet (5 sources) Start: 06-10-2024 take 2 tablets intragastric route every six hours acetaminophen (TYLENOL) 500 MG tablet 2 Tablets by G Tube route every 6 (six) hours. 30 Tablet 06/10/2024 Active Start: 12-11-2023 take 1 tablet by tg th every six hours Acetaminophen (Tylenol Extra Strength) 500 mg tablet Active 500 MG PO Every 6 hours December 11, 2023 12:00am take 1 tablet by tg th every six hours Tylenol Extra Strength 500 MG 1 tablet as needed Orally every 6 hrs Active [id number] 200 actuat albuterol 0.09 mg/actuat metered dose inhaler (14 sources) beta2-Adrenergic Agonist Start: 06-10-2024 End: 07-10-2024 albuterol (PROVENTIL) (2.5 MG/3ML) 0.083% nebulizer solution Use 3 mL via nebulizer every 4 hours as needed for Shortness of Breath (or not indicated). 90 Each 06/10/2024 07/10/2024 Active Start: 06-10-2024 take 4 puff(s) by mo uth every four hours as needed for wheezing albuterol (Proventil HFA) INHALATION HFA inhaler (VENTOLIN,PROAIR,PROVENTIL) 90mcg Inhale 4 Puffs by mouth every 4 hours as needed for Shortness of Breath or Wheezing. 18 g 06/10/2024 Active Start: 12-11-2023 take 1 puff(s) by inhalation every four hours Albuterol Sulfate Active 1 PUFF INHALATI ON Every 4 hours December 11, 2023 12:00am take 1 puff(s) by inhalation every four hours as needed Albuterol Sulfate HFA 108 (90 Base) MCG/ACT 1 puff as needed Inhalation every 4 hrs Active take 1 puff(s) by inhalation every four hours as needed Albuterol Sulfate HFA 108 (90 Base) MCG/ACT 1 puff as needed Inhalation every 4 hrs Active take 1 puff(s) by inhalation every four hours as needed Albuterol Sulfate HFA 108 (90 Base) MCG/ACT 1 puff as needed Inhalation every 4 hrs Active albuterol 0.833 mg/ml / ipratropium bromide 0.167 mg/ml inhalation solution (2 sources) Anticholinergic, beta2-Adrenergic Agonist Start: 06-10-2024 ipratropium-albuterol (DUO-NEB) 0.5-2.5 (3) MG/3ML nebulizer solution Use 3 mL via nebulizer every 4 hours as needed. 70 Each 06/10/2024 Active ascorbic acid 500 mg chewable tablet (3 sources) Vitamin C Start: 12-11-2023 take 500 mg by mouth once daily Ascorbic Acid (Vitamin C) Active 500 MG PO Daily December 11, 2023 12:00am take 1 tablet by tg th every twenty-four hours Vitamin C 500 MG 1 tablet Orally Once a day Active biotin 10 mg oral capsule (14 sources) Start: 12-11-2023 Biotin Active MCG PO December 11, 2023 12:00am take 1 tablet by tg th every twenty-four hours Biotin 79297 MCG 1 tablet Orally Once a day Not-Taking/PRN take 1 tablet by tg th every twenty-four hours Biotin 59827 MCG 1 tablet Orally Once a day Not-Taking take 1 tablet by mouth once azeem y Biotin 75927 MCG 1 tablet Orally Once a day Not-Taking take 1 tablet by mouth once azeem y Biotin 10777 MCG 1 tablet Orally Once a day Active Biotin Plus Keratin 11893-887 MCG-MG (9 sources) Biotin Plus Agata tin 10541-800 MCG-MG as directed Orally Active cefdinir 300 mg oral capsule (9 sources) Cephalosporin Antibacterial Cefdinir 300 MG as directed Orally Active cholecalciferol 0.025 mg oral capsule (3 sources) Vitamin D Start: 024 take 25 ug by mouth once daily Cholecalciferol (Vitamin D3) Active 25 MCG PO Daily December 11, 2023 12:00am take 1 tablet by tg th every twenty-four hours Vitamin D 25 MCG (1000 UT) 1 capsule Ora lly Once a day Not-Taking/PRN cloNIDine hydrochloride 0.1 mg oral tablet (2 sources) Central alpha-2 Adrenergic Agonist Start: 06-10-2024 cloNIDine (CATAPRES) 0.1 MG tablet 1 Tablet by G Tube route every 8 hours. 60 Tablet 3 06/10/2024 Active 0.4 ml enoxaparin sodium 100 mg/ml prefilled syringe (2 sources) Low Molecular Weight Heparin Start: 06-10-2024 End: 07-10-2024 inject 0.4 mL by subcutaneous injection twice daily enoxaparin (LOVENOX) 40 MG/0.4ML injection Inject 0.4 mL under the skin 2 times daily. 24 mL 06/10/2024 07/10/2024 Active 120 actuat fluticasone propionate 0.11 mg/actuat metered dose inhaler (2 sources) Corticosteroid Start: 06-10-2024 take 1 puff(s) by mouth twice daily fluticasone (FLOVENT HFA) 110 MCG/ACT inhaler Inhale 1 Puff by mouth 2 times daily. 12 g 06/10/2024 Active 30 actuat fluticasone furoate 0.1 mg/actuat / umeclidinium 0.0625 mg/actuat / vilanterol 0.025 mg/actuat dry powder inhaler (1 source) Anticholinergic, Corticosteroid, beta2-Adrenergic Agonist Start: 09-10-2022 take 1 puff(s) by inhalation once daily Trelegy Ellipta 100-62.5-25 MCG/ACT 1 puff Inhalation Once a day for 30 days Sep, Active folic acid 1 mg oral tablet (3 sources) take 1 tablet by mouth every twenty-four hours Folic Acid 1 MG 1 tablet Orally Once a day Active hydrocortisone 10 mg/ml topical cream (2 sources) Corticosteroid Start: 06-10-2024 End: 07-10-2024 hydrocortisone 1 % cream Apply topically 2 times daily. Apply thin layer to affected area. 30 g 06/10/2024 07/10/2024 Active labetalol hydrochloride 5 mg/ml injectable solution (2 sources) beta-Adrenergic Joseph Start: 06-10-2024 inject 2 mL intravenously every six hours as needed labetalol (TRANDATE) 5 mg/mL injection 2 mL by Intravenous Push route every 6 hours as needed (SBP >160). 4 mL 06/10/2024 Active lisinopril 40 mg oral tablet (20 sources) Angiotensin Converting Enzyme Inhibitor Start: 09-08-2022 take 1 tablet by mouth once daily lisinopril (ZESTRIL) 40 MG tablet Take 1 Tablet by mouth daily. 09/08/2022 Active melatonin 3 mg oral tablet (2 sources) Start: 06-10-2024 take 1 tablet by mouth at bedtime melatonin 3 MG TABS tablet Take 1 Tablet by mouth at bedtime. 30 Tablet 06/10/2024 Active 24 hr metoprolol succinate 25 mg extended release oral tablet (20 sources) beta-Adrenergic Joseph Start: 09-08-2022 take 1 tablet by mouth once daily metoprolol (TOPROL-XL) 25 mg XL tablet Take 1 Tablet by mouth daily. 09/08/2022 Active take 1 capsule by mouth once rajesh ly Metoprolol Succinate 25 MG 1 capsule Orally Once a day Active niacinamide 500 mg oral tablet (10 sources) Start: 12-11-2023 take 500 mg by mouth once daily Niacinamide Active 500 MG PO Daily December 11, 2023 12:00am take 1 tablet by tg th every twenty-four hours Niacinamide 500 MG 1 tablet Orally Once a day Active 24 hr nicotine 0.875 mg/hr transdermal system (2 sources) Cholinergic Nicotinic Agonist Start: 06-11-2024 apply 1 dose transdermal route once daily nicotine (NICODERM CQ) 21 mg/24HR patch Place 1 Patch on the skin daily. 30 Patch 06/11/2024 Active 2 ml ondansetron 2 mg/ml injection (2 sources) Serotonin-3 Receptor Antagonist Start: 06-10-2024 inject 2 mL intravenously every six hours as needed ondansetron (ZOFRAN) 4 MG/2ML injection 2 mL by Intravenous Push route every 6 hours as needed. 15 mL 06/10/2024 Active oxyCODONE hydrochloride 5 mg oral tablet (3 sources) Opioid Agonist Start: 06-10-2024 End: 06-15-2024 oxyCODONE 5 MG immediate release tablet Indications: Closed nondisplaced fracture of pelvis, unspecified part of pelvis, initial encounter (HCC) 1 Tablet by G Tube route every 4 hours as needed for up to 5 days. 28 Tablet 06/10/2024 06/15/2024 Active Start: 06-10-2024 End: 06-13-2024 oxyCODONE 5 MG immediate rel ease tablet Indications: Closed nondisplaced fracture of pelvis, unspecified part of pelvis, initial encounter (HCC) 2 Tablets by G Tube route every 4 hours as needed for up to 3 days. 28 Tablet 06/10/2024 06/13/2024 Active pantoprazole 40 mg injection (2 sources) Proton Pump Inhibitor Start: 06-11-2024 inject 10 mL intravenously once daily 30 minutes before breakfast pantoprazole (PROTONIX) 40 MG SOLR injection 10 mL by Intravenous Push route daily (30 minutes before breakfast). 30 Each 06/11/2024 Active Pediatric Multivitamins-Iron (Cerovite Jr) chew tab (2 sources) Start: 06-11-2024 End: 07-11-2024 take 1 tablet by mouth once daily Pediatric Multivitamins-Ir on (Cerovite Jr) chew tab Chew and swallow 1 Tablet by mouth daily. 30 Tablet 06/11/2024 07/11/2024 Active sennosides, [facility] 8.6 mg oral tablet (9 sources) take 2 tablets by mouth every twenty-four hours Senna 8.6 MG 2 tablets at bedtime as needed Orally Once a day Active sulfamethoxazole 800 mg / trimethoprim 160 mg oral tablet (1 source) Dihydrofolate Reductase Inhibitor Antibacterial, Sulfonamide Antimicrobial Start: 01-22-2023 take 1 tablet by mouth every twelve hours Bactrim DS 800-160 MG 1 tablet Orally Twice a day for 10 day(s) December, Active Tylenol Extra Strength 500 MG (7 sources) take 1 tablet by mouth every six hours as needed Tylenol Extra Strength 500 MG 1 tablet as needed Orally every 6 hrs Active 30 actuat umeclidinium 0.0625 mg/actuat / vilanterol 0.025 mg/actuat dry powder inhaler (2 sources) Anticholinergic, beta2-Adrenergic Agonist Start: 06-10-2024 End: 07-10-2024 take 1 puff(s) by mouth once daily umeclidinium-angela anterol (ANORO-ELLIPTA) 62.5-25 mcg/inh AEPB inhalation powder Inhale 1 Puff by mouth daily. 60 Each 06/10/2024 07/10/2024 Active Vitamin C 500 MG (7 sources) take 1 tablet by mouth once daily Vitamin C 500 MG 1 tablet Orally Once a day Active Completed/Discontinued Medications Medication Drug Class(es) Dates Sig (Normalized) Sig (Original) esomeprazole 20 mg delayed release oral capsule (14 sources) Proton Pump Inhibitor Start: 12-11-2023 End: 12-12-2023 take 1 capsule by mouth once daily Esomeprazole Magnesium (Nexium) 20 mg capsule,delayed release(DR/EC) Discontinued 20 MG PO Daily December 11, 2023 12:00am December 12, 2023 1:57pm take 1 capsule by [facility] every twenty-four hours NexIUM 20 MG 1 capsule Orally Once a day Active iohexol (OMNIPAQUE) 300 MG/ML injection (2 sources) Start: 06-06-2024 End: 06-06-2024 take 1 dose by mouth once 50 mL, Oral, Once at Radiology exam, 1 dose, Starting on 06/06/24 at 1508, Until 06/06/24 at 1508, Imaging Protocol Orders Start: 06-01-2024 End: 06-01-2024 take 1 dose by mouth once 50 mL, Oral, Once at Radiolo gy exam, 1 dose, Starting on Fri06/01/24 at 1244, Until Fri06/01/24 at 1144, Imaging Protocol Orders iohexol (OMNIPAQUE) 350 MG/ML injection (4 sources) Start: 06-06-2024 End: 06-06-2024 take 1 dose intravenously once 100 mL, Intravenous Push, Once at Radiology exam, 1 dose, Starting on 06/06/24 at 1508, Until 06/06/24 at 1508, Imaging Protocol Orders Start: 05-30-2024 End: 05-30-2024 take 1 dose intravenously once 100 mL, Intravenous Pus h, Once at Radiology exam, 1 dose, Starting on 05/30/24 at 1707, Until 05/30/24 at 1707, Imaging Protocol Orders Start: 05-29-2024 End: 05-29-2024 take 1 dose intravenously once 100 mL, Intravenous Pus h, Once at Radiology exam, 1 dose, Starting on 05/29/24 at 1145, Until 05/29/24 at 1145, Imaging Protocol Orders Start: 05-17-2024 End: 05-17-2024 take 1 dose intravenously once 75 mL, Intravenous Push , Once at Radiology exam, 1 dose, Starting on 05/17/24 at 1518, Until 05/17/24 at 1514, Imaging Protocol Orders 10 ml lidocaine hydrochloride 20 mg/ml injection (4 sources) Antiarrhythmic, Amide Local Anesthetic Start: 05-17-2024 End: 05-17-2024 Perineural, Once PRN Procedure, Starting on 05/17/24 at 1345, Until 05/17/24 at 1345, Intra-op niacin 500 mg oral tablet (13 sources) Nicotinic Acid take 1 tablet by mouth every twenty-four hours Niacin 500 MG 1 tablet with food Orally Once a day Not-Taking/PRN predniSONE 10 mg oral tablet (10 sources) Start: 12-11-2023 End: 12-12-2023 take 10 mg by mouth once daily Prednisone Discontinued 10 MG PO Daily December 11, 2023 12:00am December 12, 2023 1:58pm take 1 tablet by tg th every twenty-four hours predniSONE 10 MG 1 tablet Orally Once a day Active Psyllium Husk (10 sources) Start: 12-11-2023 End: 12-12-2023 take 0.4 g by mouth once daily Psyllium Husk Discontinued 0.4 GM PO Daily December 11, 2023 12:00am December 12, 2023 1:58pm Psyllium Husk Ac tikeeley Sennosides (1 source) Start: 12-11-2023 End: 12-12-2023 take 17.2 mg by mouth once daily at bedtime Sennosides Discontinued 17.2 MG PO Daily at bedtime December 11, 2023 12:00am December 12, 2023 1:58pm Vitamin D 25 MCG (1000 UT) (11 sources) take 1 capsule by mouth once daily Vitamin D 25 MCG (1000 UT) 1 capsule Orally Once a day Not-Taking take 1 capsule by mouth once rajesh ly Vitamin D 25 MCG (1000 UT) 1 capsule Orally Once a day Active Problems Active Problems Problem Classification Problem Date Documented Da te Episodic/Chronic Acute posthemorrhagic anemia (7 sources) Acute posthemorrhagic anemia; Translations: [Acute posthemorrhagic anemia] Episodic Alcohol-related disorders (15 sources) Alcoholic fatty liver; Translations: [Alcoholic fatty liver] Chronic Chronic obstructive pulmonary disease and bronchiectasis (20 sources) Mucopurulent chronic bronchitis; Translations: [Mucopurulent chronic bronchitis] Chronic Coagulation and hemorrhagic disorders (20 sources) Acquired coagulation factor deficiency; 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] Onset: 02-15-2022 Resolved: 04-27-2020 Chronic Coronary atherosclerosis and other heart disease (20 sources) Coronary arteriosclerosis; Translations: [Atherosclerotic heart disease of [place] coronary artery without angina pectoris] Onset: 10-22-2022 Chronic Crushing injury or internal injury (20 sources) Traumatic pneumothorax; Translations: [Traumatic pneumothorax, initial encounter] Onset: 2024 05-26-2024 Episodic Delirium, dementia, and amnestic and other cognitive disorders (20 sources) Delirium due to multiple etiological factors; Translations: [Delirium due to known physiological condition] Onset: 2024 05-26-2024 Chronic Disorders of lipid metabolism (20 sources) Hypercholesterolemia; Translations: [Pure hypercholesterolemia, unspecified] Onset: 02-15-2022 Chronic Esophageal disorders (20 sources) Gastro-esophageal reflux disease with esophagitis; Translations: [Gastroesophageal reflux disease with esophagitis without hemorrhage] Chronic Esophageal disorders (8 sources) Esophageal disorders; Translations: [Gastroesophageal reflux disease with esophagitis, unspecified whether hemorrhage] Essential hypertension (20 sources) Essential hypertension; Translations: [Essential (primary) hypertension] Onset: 02-13-2022 Chronic Fluid and electrolyte disorders (17 sources) Hyponatremia; Translations: [Hypo-osmolality and hyponatremia] Onset: 05-16-2024 Resolved: 04-27-2020 Episodic Genitourinary symptoms and ill-defined conditions (17 sources) Increased frequency of urination; Translations: [Frequency of micturition] Episodic Hyperplasia of prostate (17 sources) Nocturia due to benign prostatic hypertrophy; Translations: [Benign prostatic hyperplasia with lower urinary tract symptoms] Chronic Immunizations and screening for infectious disease (4 sources) Vaccination given; Translations: [Encounter for immunization] Episodic Other aftercare (20 sources) Under care of palliative care physician; Translations: [Encounter for palliative care] Onset: 2024 2024 Episodic Other connective tissue disease (7 sources) Olecranon bursitis; Translations: [Olecranon bursitis, right elbow] Episodic Other endocrine disorders (13 sources) Mass of left adrenal gland; Translations: [Other specified disorders of adrenal gland] Chronic Other endocrine disorders (4 sources) Disorder of adrenal gland; Translations: [Other specified disorders of adrenal gland] Chronic Other fractures (20 sources) Closed flail chest; Translations: [Flail chest, initial encounter for closed fracture] Onset: 05-17-2024 05-17-2024 Episodic Other fractures (1 source) Closed fracture of multiple ribs; Translations: [Multiple fractures of ribs, unspecified side, initial encounter for closed fracture] Onset: 05-16-2024 Episodic Other gastrointestinal disorders (20 sources) Drug-induced constipation; Translations: [Drug induced constipation] Onset: 2024 05-26-2024 Episodic Other injuries and conditions due to external causes (4 sources) History of fall; Translations: [History of falling] Episodic Other injuries and conditions due to external causes (1 source) Injury of head; Translations: [Unspecified injury of head, initial encounter] Onset: 05-16-2024 Episodic Other lower respiratory disease (11 sources) Nodule of lung; Translations: [Solitary pulmonary nodule] Episodic Other lower respiratory disease (6 sources) Solitary pulmonary nodule Episodic Other lower respiratory disease (20 sources) Rib pain; Translations: [Pleurodynia] Onset: 2024 05-26-2024 Episodic Other screening for suspected conditions (not mental disorders or infectious disease) (2 sources) Other specified abnormal findings of blood chemistry Episodic Other skin disorders (1 source) Xerosis cutis Episodic Phlebitis; thrombophlebitis and thromboembolism (20 sources) Acute embolism and thrombosis of unspecified deep veins of left proximal lower extremity; Translations: [Acute embolism and thrombosis of left femoral vein] Onset: 01-31-2020 Episodic Pleurisy; pneumothorax; pulmonary collapse (1 source) Pneumothorax; Translations: [Pneumothorax, unspecified] Onset: 05-16-2024 Episodic Pulmonary heart disease (5 sources) Pulmonary embolism; Translations: [Single subsegmental pulmonary embolism without acute cor pulmonale] Episodic Residual codes; unclassified (7 sources) Tobacco user; Translations: [Tobacco use] Episodic Respiratory failure; insufficiency; arrest (adult) (12 sources) Acute on chronic hypercapnic respiratory failure; Translations: [Acute and chronic respiratory failure with hypercapnia] Chronic Respiratory failure; insufficiency; arrest (adult) (20 sources) Acute respiratory failure; Translations: [Acute respiratory failure with hypoxia] Onset: 2024 05-26-2024 Episodic Spondylosis; intervertebral disc disorders; other back problems (20 sources) Lumbar spondylosis; Translations: [Spondylosis without myelopathy or radiculopathy, lumbar region] Chronic Spondylosis; intervertebral disc disorders; other back problems (4 sources) Low back pain; Translations: [Low back pain, unspecified] Episodic Substance-related disorders (20 sources) Nicotine dependence; Translations: [Nicotine dependence, cigarettes, uncomplicated] Chronic Comment on above: Added secondary to d ocumentation in Social History. Thyroid disorders (20 sources) Subclinical hypothyroidism; Translations: [Other specified hypothyroidism] Onset: 02-15-2022 Chronic Unclassified (4 sources) Elevation of levels of liver transaminase levels; Translations: [Elevation of levels of liver transaminase levels] Past or Other Problems Problem Classification Problem Date Documented Da te Episodic/Chronic Other nutritional; endocrine; and metabolic disorders (7 sources) Overweight; Translations: [Overweight] Onset: 02-12-2022 Episodic Sprains and strains (4 sources) Strain of muscle and/or tendon of lower leg; Translations: [Strain of other muscle(s) and tendon(s) of posterior muscle group at lower leg level, left leg, initial encounter] Resolved: 03-16-2020 Episodic Unclassified (3 sources) Acute bilateral low back pain without sciatica; Translations: [Acute bilateral low back pain without sciatica] Unclassified (3 sources) Elevated transaminase level; Translations: [Elevated transaminase level] Unclassified (2 sources) Single subsegmental pulmonary embolism without acute cor pulmonale Results Test Name Value Interpretation Reference Range [facility] Trauma Office/Clinic Noteon 08-18-2024 Trauma Office/Clinic Note Trauma Office/Clinic Note History of Present Illness Patient was initially seen at [facility] on 05/16/24 and ultimately transferred to [facility] for his injuries as noted below FINAL DIAGNOSES: Hospital Problems as of 06/10/2024 Closed fracture of multiple ribs with flail chest, initial encounter Acute hyperactive delirium due to multiple etiologies Palliative care by specialist Traumatic pneumothorax Acute hypoxic respiratory failure (HCC) Rib pain on right side Drug-induced constipation PROCEDURES: 1. Repair of ribs 5, 6, 7, and 8 with internal rib plating 2. Video assisted thoracoscopic surgery 3. Insertion of angled 28 Fr chest tube 4. Insertion of straight 28 Fr chest tube 5. Removal of intrathoracic pigtail catheter REASON FOR HOSPITALIZATION: Andrea Michelle is an 83-year-old male with PMHx of CAD, HTN, HLD, COPD, GERD, hemophilia, and s/p IVC filter who presented as CAT 1 transfer from [facility] for mechanical fall down 8 steps. Unwitnessed fall, - head strike, - loc, - antiplatelet, -anticoagulation. He was found by his after remaining on the floor for 1-2 hours. He was initially taken to [facility] where he was scanned and found to have multiple right sided rib fractures with hydropneumothorax and right sided pelvic fractures. Right pigtail catheter placed prior to transfer to [facility] for ortho and trauma work up. Upon arrival, patient became hypoxic while in trauma bay requiring initiation of rebreather. He was subsequently admitted to TICU for ongoing management. SIGNIFICANT FINDINGS: Catalog of Injuries - Right sided 4-9th rib fractures - Right hydropneumothorax s/p pigtail chest tube (since removed) - Right superior/inferior pubic rami fracture which involves right acetabulum - Left sacral ala fracture Incidental Findings None HOSPITAL COURSE: 05/16: Pigtail placed for hydropneumothorax, admit to TICU. 05/17: Received rib block from anesthesia. Respiratory distress placed on BiPAP over night. CT head negative for acute changes. 05/18: High flow nasal canula 50% Fi02 45L. CAMILLA Cr 1.68, K 5.6 treated with Lokalma. 05/19: CT chest obtained. K 5.6 - Lokalma with potassium bundle. Bipap related to respiratory acidosis, hypercapnea, increased agitation and confusion. Intubated. 05/20: Went to OR for rib plating and VATS. 05/21: Extubated. 05/22: To stepdown. 05/23: Continued to make good progress after rib plating. Started home lisinopril. D/c Maher. Respiratory culture suggestive of PNA - no focal consolidation on CXR but will complete antibiotics given rib plating. Last chest tube removed. 05/24: Tachypnea with increased work of breathing and increased oxygen requirement. Started on HFNC. 05/25: Palliative consult, medications adjusted. 05/26: Doing well on HFNC. Appeared much more comfortable without increased WOB. Will initiate diet today. Monitor IS. 05/27: Less agitated overnight, did well on HFNC until attempted wean to NC which patient did not tolerate and became acidodic with worsening tachypnea. Episode of bradycardia, hypotension, and worsening mental status requiring reintubation. 05/28: Remains intubated. 05/29: SBT failed. CT chest/abd/pelvis ordered. 05/30: Failed SBT, now on pressure support of 23 with improved respiratory rate. Patient awake and alert. Abdomen distended, KUB ordered and magnesium citrate started. IR consulted for possible pigtail placement in R pleural fluid collection, unable to be safely accessed. 05/31: Self extubated overnight. NGT to LIWS. 06/01: Re-intubated due to hypercarbic, respiratory failure. Given 2 units RBC. 06/02: No acute changes, unable to complete trach/PEG due to OR scheduling 06/03: Weaned FiO2 to 35%. Restarted home antihypertensives. Awaiting trach/PEG. 06/04: OR for open tracheostomy and PEG tube placement. Weaned from sedation. Trickle tube feeds started. 06/05: Intermittent hypertension requiring increase in PO metoprolol dose and use of IV labetalol PRN. Emesis x1, with PEG placed to gravity and tube feeds held. 06/06: Patient requiring ventilatory support due to fatigue. 06/07: No acute events overnight. Afebrile and hemodynamically stable. Failed SBT due to hyper-ventilation. 06/08: Right pig tail placed yesterday. Left sided thoracentesis by IR. 06/09: No acute events overnight. Afebrile, hemodynamically stable. Right pigtail in place with 130 cc of serous output. Still requiring ventilation, failed SBT due to tachypnea 06/10: No acute events overnight. Right Pigtail catheter removed from chest. HPI Today on 08/18/2024 the patient is here for PEG tube removal. Patient had his trach removed a month or so ago, has not used his G-tube in the last month. Was scheduled to be seen at [facility] but had issues getting there because of the commute so the patient has come to our clinic for removal of the G-tube. Patient denies any pain, redness, drainage from the area, has been tolerating regular diet without issue, no issues with swallowing, no vo (more content not included)... Normal [facility] Comment on above: Result Comment: Elec tronically Signed By: Fiordaliza Jara PA-C\.br\Date and Time Signed: 08/18/24 10:17 EST\.br\Electronically Co-Signed By: Leatha Spring MD\.br\Date and Time Co-Signed: 08/18/24 11:14 EST CBCon 07-19-2024 Erythrocyte distribution width (RBC) [Ratio] 15.5 % High 11.5-15.0 [facility] Comment on above: Performed By: #### L [id number] #### [facility] (BEAKER) [address] [place] [address] ERYTHROCYTE MEAN CORPUSCULAR HEMOGLOBIN CONCENTRATION (G/DL) BY AUTOMATED 31.4 g/dL Low 32.0-35.0 [facility] Comment on above: Performed By: #### L [id number] #### [facility] ([facility]AK[facility]) [address] [place] [address] Hematocrit (Bld) [Volume fraction] 30.3 % Low 39.0-55.0 [facility] Comment on above: Performed By: #### L [id number] #### [facility] ([facility]) [address] [place] [address] Hemoglobin (Bld) [Mass/Vol] 9.5 g/dL Low 13.0-17.0 [facility] Comment on above: Performed By: #### L [id number] #### [facility] ([facility]) [address] [place] [address] MCH (RBC) [Entitic mass] 30.4 pg Normal 27.0-33.0 [facility] Comment on above: Performed By: #### L [id number] #### [facility] ([facility]) [address] [place] [address] MCV (RBC) [Entitic vol] 97.1 fL Normal 82.0-98.0 [facility] Comment on above: Performed By: #### L [id number] #### [facility] ([facility]) [address] [place] [address] PLATELETS (10*3/UL) IN BLOOD AUTOMATED COUNT 343 10*3/uL Normal 150-400 [facility] Comment on above: Performed By: #### L [id number] #### [facility] ([facility]) [address] [place] [address] RBC (Bld) [#/Vol] 3.12 10*6/uL Low 4.20-5.70 [facility] Comment on above: Performed By: #### L [id number] #### [facility] ([facility]) [address] [place] [address] WBC (Bld) [#/Vol] 8.93 10*3/uL Normal 4.00-10.60 [facility] Comment on above: Performed By: #### L [id number] #### [facility] ([facility]) [address] [place] [address] COMPREHENSIVE METABOLIC PANE Meir 07-19-2024 Albumin [Mass/Vol] 3.4 g/dL Low 3.5-5.7 [facility] Comment on above: Performed By: #### L [id number] #### [facility] (BEAKER) [address] [place] [address] ALP [Catalytic activity/Vol] 87 U/L Normal 34-104 [facility] Comment on above: Performed By: #### L [id number] #### [facility] (BEAKER) [address] [place] [address] ALT [Catalytic activity/Vol] 13 U/L Normal 7-52 [facility] Comment on above: Performed By: #### L [id number] #### [facility] ([facility]AKER) [address] [place] [address] Anion gap [Moles/Vol] 6 mmol/L Low 7-20 [facility] Comment on above: Performed By: #### L [id number] #### [facility] ([facility]) [address] [place] [address] AST [Catalytic activity/Vol] 14 U/L Normal 13-39 [facility] Comment on above: Performed By: #### L [id number] #### [facility] ([facility]AKER) [address] [place] [address] Bilirubin [Mass/Vol] 0.2 mg/dL Low 0.3-1.0 [facility] Comment on above: Performed By: #### L [id number] #### [facility] ([facility]) [address] [place] [address] Calcium [Mass/Vol] 9.0 mg/dL Normal 8.6-10.3 [facility] Comment on above: Performed By: #### L [id number] #### [facility] ([facility]AKER) [address] [place] [address] Chloride [Moles/Vol] 101 mmol/L Normal 98-107 [facility] Comment on above: Performed By: #### L [id number] #### [facility] (BEAKER) [address] [place] [address] CO2 [Moles/Vol] 32 mmol/L High 21-31 [facility] Comment on above: Performed By: #### L [id number] #### [facility] ([facility]) [address] [place] [address] Creatinine [Mass/Vol] 0.66 mg/dL Low 0.70-1.30 [facility] Comment on above: Performed By: #### L [id number] #### [facility] ([facility]) [address] [place] [address] GLOMERULAR FILTRATION RATE ML/MIN/1.73 SQ M.PREDICTED 93.1 mL/min/1.73m*2 Normal >60.0 [facility] Comment on above: Result Comment: The [facility]???s estimated glomerular filtration rate (eGFR) will no longer include consideration of race in its calculation. The National Kidney Foundation???s eGFR Task Force developed new recommendations for the estimation of the glomerular filtration rate in the [place] They recommend immediate implementation of the new equation refit without the race variable in all laboratories because the calculation does not include race. In addition to not including race in the calculation and reporting, it included diversity in its development, and has acceptable performance characteristics and potential consequences that do not disproportionately affect any one group of individuals. Performed By: #### L [id number] #### [facility] ([facility]) [address] [place] [address] Glucose [Mass/Vol] 83 mg/dL Normal 70-100 [facility] Comment on above: Performed By: #### L [id number] #### [facility] ([facility]) [address] [place] [address] Potassium [Moles/Vol] 4.2 mmol/L Normal 3.5-5.1 [facility] Comment on above: Performed By: #### L [id number] #### [facility] ([facility]) [address] [place] [address] Protein [Mass/Vol] 6.9 g/dL Normal 6.0-8.3 [facility] Comment on above: Performed By: #### L [id number] #### [facility] ([facility]) [address] [place] [address] Sodium [Moles/Vol] 135 mmol/L Low 136-145 [facility] Comment on above: Performed By: #### L [id number] #### [facility] ([facility]) [address] [place] [address] Urea nitrogen [Mass/Vol] 24 mg/dL Normal 7-25 [facility] Comment on above: Performed By: #### L [id number] #### [facility] ([facility]) [address] [place] [address] UREA NITROGEN/CREATININE (MASS RATIO) IN SER/PLAS 36.4 Normal [facility] Comment on above: Performed By: #### L [id number] #### [facility] ([facility]) [address] [place] [address] MAGNESIUMon 07-19-2024 Magnesium [Mass/Vol] 2.1 mg/dL Normal 1.9-2.7 [facility] Comment on above: Performed By: #### L [id number] #### [facility] ([facility]) [address] [place] [address] PHOSPHORUSon 07-19-2024 Magnesium [Mass/Vol] 3.3 mg/dL Normal 2.5-5.0 [facility] Comment on above: Performed By: #### L [id number] #### [facility] ([facility]) [address] [place] [address] BASIC METABOLIC PANELon 07-02 Anion gap [Moles/Vol] 9 mmol/L Normal 7-20 [facility] Comment on above: Performed By: #### L [id number] #### [facility] ([facility]) [address] [place] [address] Calcium [Mass/Vol] 9.4 mg/dL Normal 8.6-10.3 [facility] Comment on above: Performed By: #### L [id number] #### [facility] ([facility]) [address] [place] [address] Chloride [Moles/Vol] 102 mmol/L Normal 98-107 [facility] Comment on above: Performed By: #### L [id number] #### [facility] ([facility]) [address] [place] [address] CO2 [Moles/Vol] 28 mmol/L Normal 21-31 [facility] Comment on above: Performed By: #### L [id number] #### [facility] ([facility]) [address] [place] [address] Creatinine [Mass/Vol] 0.70 mg/dL Normal 0.70-1.30 [facility] Comment on above: Performed By: #### L [id number] #### [facility] ([facility]) [address] [place] [address] GLOMERULAR FILTRATION RATE ML/MIN/1.73 SQ M.PREDICTED 91.4 mL/min/1.73m*2 Normal >60.0 [facility] Comment on above: Result Comment: The [facility]???s estimated glomerular filtration rate (eGFR) will no longer include consideration of race in its calculation. The National Kidney Foundation???s eGFR Task Force developed new recommendations for the estimation of the glomerular filtration rate in the [place] They recommend immediate implementation of the new equation refit without the race variable in all laboratories because the calculation does not include race. In addition to not including race in the calculation and reporting, it included diversity in its development, and has acceptable performance characteristics and potential consequences that do not disproportionately affect any one group of individuals. Performed By: #### L [id number] #### [facility] ([facility]) [address] [place] [address] Glucose [Mass/Vol] 106 mg/dL High 70-100 [facility] Comment on above: Performed By: #### L [id number] #### [facility] ([facility]) [address] [place] [address] Potassium [Moles/Vol] 4.0 mmol/L Normal 3.5-5.1 [facility] Comment on above: Performed By: #### L [id number] #### [facility] ([facility]) [address] [place] [address] Sodium [Moles/Vol] 135 mmol/L Low 136-145 [facility] Comment on above: Performed By: #### L [id number] #### [facility] ([facility]) [address] [place] [address] Urea nitrogen [Mass/Vol] 26 mg/dL High 7-25 [facility] Comment on above: Performed By: #### L [id number] #### [facility] ([facility]) [address] [place] [address] UREA NITROGEN/CREATININE (MASS RATIO) IN SER/PLAS 37.1 Normal [facility] Comment on above: Performed By: #### L [id number] #### [facility] ([facility]) [address] [place] [address] CBC WITH AUTO DIFFERENTIALon 07-18-2024 Basophils (Bld) [#/Vol] 0.05 10*3/uL Normal 0.00-0.20 [facility] Comment on above: Performed By: #### L [id number] #### [facility] ([facility]) [address] [place] [address] Basophils/100 WBC (Bld) 0.7 % Normal 0.0-1.0 [facility] Comment on above: Performed By: #### L [id number] #### [facility] ([facility]) [address] [place] [address] Eosinophils (Bld) [#/Vol] 0.37 10*3/uL Normal 0.00-0.50 [facility] Comment on above: Performed By: #### L [id number] #### [facility] ([facility]) [address] [place] [address] Eosinophils/100 WBC (Bld) 4.8 % Normal 0.0-6.0 [facility] Comment on above: Performed By: #### L [id number] #### [facility] ([facility]) [address] [place] [address] Erythrocyte distribution width (RBC) [Ratio] 15.8 % High 11.5-15.0 [facility] Comment on above: Performed By: #### L [id number] #### [facility] ([facility]) [address] [place] [address] ERYTHROCYTE MEAN CORPUSCULAR HEMOGLOBIN CONCENTRATION (G/DL) BY AUTOMATED 31.4 g/dL Low 32.0-35.0 [facility] Comment on above: Performed By: #### L [id number] #### [facility] ([facility]) [address] [place] [address] Hematocrit (Bld) [Volume fraction] 30.3 % Low 39.0-55.0 [facility] Comment on above: Performed By: #### L [id number] #### [facility] ([facility]) [address] [place] [address] Hemoglobin (Bld) [Mass/Vol] 9.5 g/dL Low 13.0-17.0 [facility] Comment on above: Performed By: #### L [id number] #### [facility] ([facility]) [address] [place] [address] Immature granulocytes (Bld) [#/Vol] 0.06 10*3/uL Normal 0.00-0.20 [facility] Comment on above: Performed By: #### L [id number] #### [facility] ([facility]) [address] [place] [address] Immature granulocytes/100 WBC (Bld) 0.8 % Normal 0.0-1.0 [facility] Comment on above: Performed By: #### L [id number] #### [facility] (BEAKER) [address] [place] [address] Lymphocytes (Bld) [#/Vol] 1.29 10*3/uL Normal 1.20-4.00 [facility] Comment on above: Performed By: #### L [id number] #### [facility] ([facility]AKER) [address] [place] [address] Lymphocytes/100 WBC (Bld) 16.9 % Low 20.0-45.0 [facility] Comment on above: Performed By: #### L [id number] #### [facility] ([facility]) [address] [place] [address] MCH (RBC) [Entitic mass] 30.6 pg Normal 27.0-33.0 [facility] Comment on above: Performed By: #### L [id number] #### [facility] ([facility]) [address] [place] [address] MCV (RBC) [Entitic vol] 97.7 fL Normal 82.0-98.0 [facility] Comment on above: Performed By: #### L [id number] #### [facility] ([facility]) [address] [place] [address] Monocytes (Bld) [#/Vol] 0.59 10*3/uL Normal 0.10-1.00 [facility] Comment on above: Performed By: #### L [id number] #### [facility] ([facility]) [address] [place] [address] Monocytes/100 WBC (Bld) 7.7 % Normal 5.0-12.0 [facility] Comment on above: Performed By: #### L [id number] #### [facility] ([facility]) [address] [place] [address] Neutrophils (Bld) [#/Vol] 5.28 10*3/uL Normal 1.60-7.60 [facility] Comment on above: Performed By: #### L [id number] #### [facility] ([facility]) [address] [place] [address] Neutrophils/100 WBC (Bld) 69.1 % Normal 40.0-72.0 [facility] Comment on above: Performed By: #### L [id number] #### [facility] ([facility]) [address] [place] [address] NRBC (PER 100 WBCS) BY AUTOMATED COUNT 0.0 % Normal 0 [facility] Comment on above: Performed By: #### L [id number] #### [facility] ([facility]) [address] [place] [address] PLATELETS (10*3/UL) IN BLOOD AUTOMATED COUNT 344 10*3/uL Normal 150-400 [facility] Comment on above: Performed By: #### L [id number] #### [facility] ([facility]) [address] [place] [address] RBC (Bld) [#/Vol] 3.10 10*6/uL Low 4.20-5.70 [facility] Comment on above: Performed By: #### L [id number] #### [facility] ([facility]) [address] [place] [address] WBC (Bld) [#/Vol] 7.64 10*3/uL Normal 4.00-10.60 [facility] Comment on above: Performed By: #### L [id number] #### [facility] ([facility]) [address] [place] [address] MAGNESIUMon 07-18-2024 Magnesium [Mass/Vol] 2.1 mg/dL Normal 1.9-2.7 [facility] Comment on above: Performed By: #### L [id number] #### [facility] [facility] ([facility]) [address] [place] [address] PHOSPHORUSon 07-18-2024 Magnesium [Mass/Vol] 3.9 mg/dL Normal 2.5-5.0 [facility] Comment on above: Performed By: #### L [id number] #### [facility] ([facility]) [address] [place] [address] CBCon 07-16-2024 Erythrocyte distribution width (RBC) [Ratio] 15.3 % High 11.5-15.0 [facility] Comment on above: Performed By: #### L [id number] #### [facility] ([facility]) [address] [place] [address] ERYTHROCYTE MEAN CORPUSCULAR HEMOGLOBIN CONCENTRATION (G/DL) BY AUTOMATED 31.6 g/dL Low 32.0-35.0 [facility] Comment on above: Performed By: #### L [id number] #### [facility] ([facility]) [address] [place] [address] Hematocrit (Bld) [Volume fraction] 31.0 % Low 39.0-55.0 [facility] Comment on above: Performed By: #### L [id number] #### [facility] ([facility]) [address] [place] [address] Hemoglobin (Bld) [Mass/Vol] 9.8 g/dL Low 13.0-17.0 [facility] Comment on above: Performed By: #### L [id number] #### [facility] ([facility]) [address] [place] [address] MCH (RBC) [Entitic mass] 30.4 pg Normal 27.0-33.0 [facility] Comment on above: Performed By: #### L [id number] #### [facility] ([facility]) [address] [place] [address] MCV (RBC) [Entitic vol] 96.3 fL Normal 82.0-98.0 [facility] Comment on above: Performed By: #### L [id number] #### [facility] ([facility]) [address] [place] [address] PLATELETS (10*3/UL) IN BLOOD AUTOMATED COUNT 323 10*3/uL Normal 150-400 [facility] Comment on above: Performed By: #### L [id number] #### [facility] ([facility]) [address] [place] [address] RBC (Bld) [#/Vol] 3.22 10*6/uL Low 4.20-5.70 [facility] Comment on above: Performed By: #### L [id number] #### [facility] ([facility]) [address] [place] [address] WBC (Bld) [#/Vol] 8.44 10*3/uL Normal 4.00-10.60 [facility] Comment on above: Performed By: #### L [id number] #### [facility] ([facility]) [address] [place] [address] COMPREHENSIVE METABOLIC PANE Meir 07-16-2024 Albumin [Mass/Vol] 3.6 g/dL Normal 3.5-5.7 [facility] Comment on above: Performed By: #### L [id number] #### [facility] ([facility]) [address] [place] [address] ALP [Catalytic activity/Vol] 99 U/L Normal 34-104 [facility] Comment on above: Performed By: #### L [id number] #### [facility] ([facility]) [address] [place] [address] ALT [Catalytic activity/Vol] 15 U/L Normal 7-52 [facility] Comment on above: Performed By: #### L [id number] #### [facility] ([facility]) [address] [place] [address] Anion gap [Moles/Vol] 7 mmol/L Normal 7-20 [facility] Comment on above: Performed By: #### L [id number] #### [facility] ([facility]) [address] [place] [address] AST [Catalytic activity/Vol] 14 U/L Normal 13-39 [facility] Comment on above: Performed By: #### L [id number] #### [facility] ([facility]) [address] [place] [address] Bilirubin [Mass/Vol] 0.3 mg/dL Normal 0.3-1.0 [facility] Comment on above: Performed By: #### L [id number] #### [facility] ([facility]) [address] [place] [address] Calcium [Mass/Vol] 9.9 mg/dL Normal 8.6-10.3 [facility] Comment on above: Performed By: #### L [id number] #### [facility] ([facility]) [address] [place] [address] Chloride [Moles/Vol] 100 mmol/L Normal 98-107 [facility] Comment on above: Performed By: #### L [id number] #### [facility] ([facility]) [address] [place] [address] CO2 [Moles/Vol] 31 mmol/L Normal 21-31 [facility] Comment on above: Performed By: #### L [id number] #### [facility] ([facility]) [address] [place] [address] Creatinine [Mass/Vol] 0.54 mg/dL Low 0.70-1.30 [facility] Comment on above: Performed By: #### L [id number] #### [facility] ([facility]) [address] [place] [address] GLOMERULAR FILTRATION RATE ML/MIN/1.73 SQ M.PREDICTED 98.9 mL/min/1.73m*2 Normal >60.0 [facility] Comment on above: Result Comment: The [facility]???s estimated glomerular filtration rate (eGFR) will no longer include consideration of race in its calculation. The National Kidney Foundation???s eGFR Task Force developed new recommendations for the estimation of the glomerular filtration rate in the [place] They recommend immediate implementation of the new equation refit without the race variable in all laboratories because the calculation does not include race. In addition to not including race in the calculation and reporting, it included diversity in its development, and has acceptable performance characteristics and potential consequences that do not disproportionately affect any one group of individuals. Performed By: #### L [id number] #### [facility] ([facility]) [address] [place] [address] Glucose [Mass/Vol] 98 mg/dL Normal 70-100 [facility] Comment on above: Performed By: #### L [id number] #### [facility] ([facility]) [address] [place] [place] [address] Potassium [Moles/Vol] 4.2 mmol/L Normal 3.5-5.1 [facility] Comment on above: Performed By: #### L [id number] #### [facility] ([facility]) [address] [place] [address] Protein [Mass/Vol] 7.5 g/dL Normal 6.0-8.3 [facility] Comment on above: Performed By: #### L [id number] #### [facility] ([facility]) [address] [place] [address] Sodium [Moles/Vol] 134 mmol/L Low 136-145 [facility] Comment on above: Performed By: #### L [id number] #### [facility] ([facility]) [address] [place] [address] Urea nitrogen [Mass/Vol] 24 mg/dL Normal 7-25 [facility] Comment on above: Performed By: #### L [id number] #### [facility] ([facility]) [address] [place] [address] UREA NITROGEN/CREATININE (MASS RATIO) IN SER/PLAS 44.4 Normal [facility] Comment on above: Performed By: #### L [id number] #### [facility] ([facility]) [address] [place] [address] MAGNESIUMon 07-16-2024 Magnesium [Mass/Vol] 1.8 mg/dL Low 1.9-2.7 [facility] Comment on above: Performed By: #### L [id number] #### [facility] ([facility]) [address] [place] [address] PHOSPHORUSon 07-16-2024 Magnesium [Mass/Vol] 2.0 mg/dL Low 2.5-5.0 [facility] Comment on above: Performed By: #### L [id number] #### [facility] ([facility]) [address] [place] [address] TRIGLYCERIDESon 07-16-2024 FASTING? Unknown Normal [facility] Comment on above: Performed By: #### L [id number] #### [facility] ([facility]) [address] [place] [address] Magnesium [Mass/Vol] 106 mg/dL Normal 40-149 [facility] Comment on above: Result Comment: TRIG LYCERIDE REFERENCE RANGE: 20 YEARS AND OLDER CARDIOVASCULAR RISK LESS THAN 150 mg/dL LOW RISK 150 TO 199 mg/dL BORDERLINE RISK 200 mg/dL AND GREATER HIGH RISK Performed By: #### L [id number] #### [facility] ([facility]) [address] [place] [address] BASIC METABOLIC PANELon 11-1 Anion gap [Moles/Vol] 7 mmol/L Normal 7-20 [facility] Comment on above: Performed By: #### L [id number] #### [facility] ([facility]) [address] [place] [address] Calcium [Mass/Vol] 9.5 mg/dL Normal 8.6-10.3 [facility] Comment on above: Performed By: #### L [id number] #### [facility] ([facility]) [address] [place] [address] Chloride [Moles/Vol] 101 mmol/L Normal 98-107 [facility] Comment on above: Performed By: #### L [id number] #### [facility] ([facility]) [address] [place] [address] CO2 [Moles/Vol] 32 mmol/L High 21-31 [facility] Comment on above: Performed By: #### L [id number] #### [facility] ([facility]) [address] [place] [address] Creatinine [Mass/Vol] 0.56 mg/dL Low 0.70-1.30 [facility] Comment on above: Performed By: #### L [id number] #### [facility] ([facility]) [address] [place] [address] GLOMERULAR FILTRATION RATE ML/MIN/1.73 SQ M.PREDICTED 97.8 mL/min/1.73m*2 Normal >60.0 [facility] Comment on above: Result Comment: The [facility]???s estimated glomerular filtration rate (eGFR) will no longer include consideration of race in its calculation. The National Kidney Foundation???s eGFR Task Force developed new recommendations for the estimation of the glomerular filtration rate in the [place] They recommend immediate implementation of the new equation refit without the race variable in all laboratories because the calculation does not include race. In addition to not including race in the calculation and reporting, it included diversity in its development, and has acceptable performance characteristics and potential consequences that do not disproportionately affect any one group of individuals. Performed By: #### L [id number] #### [facility] ([facility]) [address] [place] [address] Glucose [Mass/Vol] 100 mg/dL Normal 70-100 [facility] Comment on above: Performed By: #### L [id number] #### [facility] ([facility]) [address] [place] [address] Potassium [Moles/Vol] 4.2 mmol/L Normal 3.5-5.1 [facility] Comment on above: Performed By: #### L [id number] #### [facility] ([facility]) [address] [place] [address] Sodium [Moles/Vol] 136 mmol/L Normal 136-145 [facility] Comment on above: Performed By: #### L [id number] #### [facility] ([facility]) [address] [place] [address] Urea nitrogen [Mass/Vol] 31 mg/dL High 7-25 [facility] Comment on above: Performed By: #### L [id number] #### [facility] ([facility]) [address] [place] [address] UREA NITROGEN/CREATININE (MASS RATIO) IN SER/PLAS 55.4 Normal [facility] Comment on above: Performed By: #### L [id number] #### [facility] ([facility]) [address] [place] [address] MAGNESIUMon 07-15-2024 Magnesium [Mass/Vol] 1.9 mg/dL Normal 1.9-2.7 [facility] Comment on above: Performed By: #### L [id number] #### [facility] ([facility]) [address] [place] [address] CBC WITH AUTO DIFFERENTIALon 07-14-2024 Basophils (Bld) [#/Vol] 0.03 10*3/uL Normal 0.00-0.20 [facility] Comment on above: Performed By: #### L [id number] #### [facility] ([facility]) [address] [place] [address] Basophils/100 WBC (Bld) 0.4 % Normal 0.0-1.0 [facility] Comment on above: Performed By: #### L [id number] #### [facility] ([facility]) [address] [place] [address] Eosinophils (Bld) [#/Vol] 0.42 10*3/uL Normal 0.00-0.50 [facility] Comment on above: Performed By: #### L [id number] #### [facility] ([facility]) [address] [place] [address] Eosinophils/100 WBC (Bld) 5.6 % Normal 0.0-6.0 [facility] Comment on above: Performed By: #### L [id number] #### [facility] ([facility]) [address] [place] [address] Erythrocyte distribution width (RBC) [Ratio] 15.9 % High 11.5-15.0 [facility] Comment on above: Performed By: #### L [id number] #### [facility] ([facility]) [address] [place] [address] ERYTHROCYTE MEAN CORPUSCULAR HEMOGLOBIN CONCENTRATION (G/DL) BY AUTOMATED 31.2 g/dL Low 32.0-35.0 [facility] Comment on above: Performed By: #### L [id number] #### [facility] ([facility]) [address] [place] [address] Hematocrit (Bld) [Volume fraction] 28.2 % Low 39.0-55.0 [facility] Comment on above: Performed By: #### L [id number] #### [facility] ([facility]) [address] [place] [address] Hemoglobin (Bld) [Mass/Vol] 8.8 g/dL Low 13.0-17.0 [facility] Comment on above: Performed By: #### L [id number] #### [facility] ([facility]) [address] [place] [address] Immature granulocytes (Bld) [#/Vol] 0.04 10*3/uL Normal 0.00-0.20 [facility] Comment on above: Performed By: #### L [id number] #### [facility] ([facility]) [address] [place] [address] Immature granulocytes/100 WBC (Bld) 0.5 % Normal 0.0-1.0 [facility] Comment on above: Performed By: #### L [id number] #### [facility] ([facility]) [address] [place] [address] Lymphocytes (Bld) [#/Vol] 1.18 10*3/uL Low 1.20-4.00 [facility] Comment on above: Performed By: #### L [id number] #### [facility] ([facility]) [address] [place] [address] Lymphocytes/100 WBC (Bld) 15.6 % Low 20.0-45.0 [facility] Comment on above: Performed By: #### L [id number] #### [facility] ([facility]) [address] [place] [address] MCH (RBC) [Entitic mass] 30.6 pg Normal 27.0-33.0 [facility] Comment on above: Performed By: #### L [id number] #### [facility] ([facility]) [address] [place] [address] MCV (RBC) [Entitic vol] 97.9 fL Normal 82.0-98.0 [facility] Comment on above: Performed By: #### L [id number] #### [facility] ([facility]) [address] [place] [address] Monocytes (Bld) [#/Vol] 0.53 10*3/uL Normal 0.10-1.00 [facility] Comment on above: Performed By: #### L [id number] #### [facility] ([facility]) [address] [place] [address] Monocytes/100 WBC (Bld) 7.0 % Normal 5.0-12.0 [facility] Comment on above: Performed By: #### L [id number] #### [facility] ([facility]) [address] [place] [address] Neutrophils (Bld) [#/Vol] 5.34 10*3/uL Normal 1.60-7.60 [facility] Comment on above: Performed By: #### L [id number] #### [facility] ([facility]) [address] [place] [address] Neutrophils/100 WBC (Bld) 70.9 % Normal 40.0-72.0 [facility] Comment on above: Performed By: #### L [id number] #### [facility] ([facility]) [address] [place] [address] NRBC (PER 100 WBCS) BY AUTOMATED COUNT 0.0 % Normal 0 [facility] Comment on above: Performed By: #### L [id number] #### [facility] ([facility]) [address] [place] [address] PLATELETS (10*3/UL) IN BLOOD AUTOMATED COUNT 261 10*3/uL Normal 150-400 [facility] Comment on above: Performed By: #### L [id number] #### [facility] ([facility]) [address] [place] [address] RBC (Bld) [#/Vol] 2.88 10*6/uL Low 4.20-5.70 [facility] Comment on above: Performed By: #### L [id number] #### [facility] ([facility]) [address] [place] [address] WBC (Bld) [#/Vol] 7.54 10*3/uL Normal 4.00-10.60 [facility] Comment on above: Performed By: #### L [id number] #### [facility] ([facility]) [address] [place] [address] COMPREHENSIVE METABOLIC PANE Meir 07-14-2024 Albumin [Mass/Vol] 3.3 g/dL Low 3.5-5.7 [facility] Comment on above: Performed By: #### L [id number] #### [facility] ([facility]) [address] [place] [address] ALP [Catalytic activity/Vol] 88 U/L Normal 34-104 [facility] Comment on above: Performed By: #### L [id number] #### [facility] ([facility]) [address] [place] [address] ALT [Catalytic activity/Vol] 13 U/L Normal 7-52 [facility] Comment on above: Performed By: #### L [id number] #### [facility] ([facility]) [address] [place] [address] Anion gap [Moles/Vol] 6 mmol/L Low 7-20 [facility] Comment on above: Performed By: #### L [id number] #### [facility] ([facility]) [address] [place] [address] AST [Catalytic activity/Vol] 16 U/L Normal 13-39 [facility] Comment on above: Performed By: #### L [id number] #### [facility] ([facility]) [address] [place] [address] Bilirubin [Mass/Vol] 0.3 mg/dL Normal 0.3-1.0 [facility] Comment on above: Performed By: #### L [id number] #### [facility] ([facility]) [address] [place] [address] Calcium [Mass/Vol] 9.4 mg/dL Normal 8.6-10.3 [facility] Comment on above: Performed By: #### L [id number] #### [facility] ([facility]) [address] [place] [address] Chloride [Moles/Vol] 99 mmol/L Normal 98-107 [facility] Comment on above: Performed By: #### L [id number] #### [facility] ([facility]) [address] [place] [address] CO2 [Moles/Vol] 32 mmol/L High 21-31 [facility] Comment on above: Performed By: #### L [id number] #### [facility] ([facility]) [address] [place] [address] Creatinine [Mass/Vol] 0.71 mg/dL Normal 0.70-1.30 [facility] Comment on above: Performed By: #### L [id number] #### [facility] ([facility]) [address] [place] [address] GLOMERULAR FILTRATION RATE ML/MIN/1.73 SQ M.PREDICTED 91.0 mL/min/1.73m*2 Normal >60.0 [facility] Comment on above: Result Comment: The [facility]???s estimated glomerular filtration rate (eGFR) will no longer include consideration of race in its calculation. The National Kidney Foundation???s eGFR Task Force developed new recommendations for the estimation of the glomerular filtration rate in the [place] They recommend immediate implementation of the new equation refit without the race variable in all laboratories because the calculation does not include race. In addition to not including race in the calculation and reporting, it included diversity in its development, and has acceptable performance characteristics and potential consequences that do not disproportionately affect any one group of individuals. Performed By: #### L [id number] #### [facility] ([facility]) [address] [place] [address] Glucose [Mass/Vol] 87 mg/dL Normal 70-100 [facility] Comment on above: Performed By: #### L [id number] #### [facility] ([facility]) [address] [place] [address] Potassium [Moles/Vol] 4.4 mmol/L Normal 3.5-5.1 [facility] Comment on above: Performed By: #### L [id number] #### [facility] ([facility]) [address] [place] [address] Protein [Mass/Vol] 6.9 g/dL Normal 6.0-8.3 [facility] Comment on above: Performed By: #### L [id number] #### [facility] ([facility]) [address] [place] [address] Sodium [Moles/Vol] 133 mmol/L Low 136-145 [facility] Comment on above: Performed By: #### L [id number] #### [facility] ([facility]) [address] [place] [address] Urea nitrogen [Mass/Vol] 61 mg/dL High 7-25 [facility] Comment on above: Performed By: #### L [id number] #### [facility] ([facility]) [address] [place] [address] UREA NITROGEN/CREATININE (MASS RATIO) IN SER/PLAS 85.9 Normal [facility] Comment on above: Performed By: #### L [id number] #### [facility] ([facility]) [address] [place] [address] MAGNESIUMon 07-14-2024 Magnesium [Mass/Vol] 2.2 mg/dL Normal 1.9-2.7 [facility] Comment on above: Performed By: #### L [id number] #### [facility] ([facility]) [address] [place] [address] PHOSPHORUSon 07-14-2024 Magnesium [Mass/Vol] 3.1 mg/dL Normal 2.5-5.0 [facility] Comment on above: Performed By: #### L [id number] #### [facility] ([facility]) [address] [place] [address] T4, FREEon 07-14-2024 THYROXINE (T4) FREE (NG/DL) IN SER/PLAS 1.06 ng/dL Normal 0.71-1.85 [facility] Comment on above: Performed By: #### L [id number] #### [facility] (BEAKER) [address] [place] [address] TSHon 07-14-2024 THYROTROPIN (MIU/L) IN SER/PLAS BY DETECTION LIMIT <= 0.05 MIU/L 2.15 mIU/L Normal 0.34-5.60 [facility] Comment on above: Performed By: #### L [id number] #### [facility] (BEAKER) [address] [place] [address] BASIC METABOLIC PANELon 07-02 Anion gap [Moles/Vol] 6 mmol/L Low 7-20 [facility] Comment on above: Performed By: #### L [id number] #### [facility] (BEAKER) [address] [place] [address] Calcium [Mass/Vol] 9.6 mg/dL Normal 8.6-10.3 [facility] Comment on above: Performed By: #### L [id number] #### [facility] (BEAKER) [address] [place] [address] Chloride [Moles/Vol] 99 mmol/L Normal 98-107 [facility] Comment on above: Performed By: #### L [id number] #### [facility] ([facility]) [address] [place] [address] CO2 [Moles/Vol] 31 mmol/L Normal 21-31 [facility] Comment on above: Performed By: #### L [id number] #### [facility] ([facility]) [address] [place] [address] Creatinine [Mass/Vol] 0.96 mg/dL Normal 0.70-1.30 [facility] Comment on above: Performed By: #### L [id number] #### [facility] ([facility]) [address] [place] [place] [address] GLOMERULAR FILTRATION RATE ML/MIN/1.73 SQ M.PREDICTED 78.4 mL/min/1.73m*2 Normal >60.0 [facility] Comment on above: Result Comment: The [facility]???s estimated glomerular filtration rate (eGFR) will no longer include consideration of race in its calculation. The National Kidney Foundation???s eGFR Task Force developed new recommendations for the estimation of the glomerular filtration rate in the [place] They recommend immediate implementation of the new equation refit without the race variable in all laboratories because the calculation does not include race. In addition to not including race in the calculation and reporting, it included diversity in its development, and has acceptable performance characteristics and potential consequences that do not disproportionately affect any one group of individuals. Performed By: #### L [id number] #### [facility] ([facility]) [address] [place] [address] Glucose [Mass/Vol] 104 mg/dL High 70-100 [facility] Comment on above: Performed By: #### L [id number] #### [facility] ([facility]) [address] [place] [address] Potassium [Moles/Vol] 5.3 mmol/L High 3.5-5.1 [facility] Comment on above: Performed By: #### L [id number] #### [facility] ([facility]) [address] [place] [address] Sodium [Moles/Vol] 131 mmol/L Low 136-145 [facility] Comment on above: Performed By: #### L [id number] #### [facility] ([facility]) [address] [place] [address] Urea nitrogen [Mass/Vol] 61 mg/dL High 7-25 [facility] Comment on above: Performed By: #### L [id number] #### [facility] ([facility]) [address] [place] [address] UREA NITROGEN/CREATININE (MASS RATIO) IN SER/PLAS 63.5 Normal [facility] Comment on above: Performed By: #### L [id number] #### [facility] ([facility]) [address] [place] [address] CBC WITH AUTO DIFFERENTIALon 07-13-2024 Basophils (Bld) [#/Vol] 0.03 10*3/uL Normal 0.00-0.20 [facility] Comment on above: Performed By: #### L [id number] #### [facility] ([facility]ER) [address] [place] [address] Basophils/100 WBC (Bld) 0.4 % Normal 0.0-1.0 [facility] Comment on above: Performed By: #### L [id number] #### [facility] (BEAKER) [address] [place] [address] Eosinophils (Bld) [#/Vol] 0.23 10*3/uL Normal 0.00-0.50 [facility] Comment on above: Performed By: #### L [id number] #### [facility] (BEAKER) [address] [place] [address] Eosinophils/100 WBC (Bld) 3.0 % Normal 0.0-6.0 [facility] Comment on above: Performed By: #### L [id number] #### [facility] (BEAKER) [address] [place] [address] Erythrocyte distribution width (RBC) [Ratio] 15.9 % High 11.5-15.0 [facility] Comment on above: Performed By: #### L [id number] #### [facility] (BEAKER) [address] [place] [address] ERYTHROCYTE MEAN CORPUSCULAR HEMOGLOBIN CONCENTRATION (G/DL) BY AUTOMATED 31.4 g/dL Low 32.0-35.0 [facility] Comment on above: Performed By: #### L [id number] #### [facility] (BEAKER) [address] [place] [address] Hematocrit (Bld) [Volume fraction] 27.1 % Low 39.0-55.0 [facility] Comment on above: Performed By: #### L [id number] #### [facility] (BEAKER) [address] [place] [address] Hemoglobin (Bld) [Mass/Vol] 8.5 g/dL Low 13.0-17.0 [facility] Comment on above: Performed By: #### L [id number] #### [facility] ([facility]) [address] [place] [address] Immature granulocytes (Bld) [#/Vol] 0.04 10*3/uL Normal 0.00-0.20 [facility] Comment on above: Performed By: #### L [id number] #### [facility] ([facility]) [address] [place] [address] Immature granulocytes/100 WBC (Bld) 0.5 % Normal 0.0-1.0 [facility] Comment on above: Performed By: #### L [id number] #### [facility] ([facility]) [address] [place] [address] Lymphocytes (Bld) [#/Vol] 1.02 10*3/uL Low 1.20-4.00 [facility] Comment on above: Performed By: #### L [id number] #### [facility] ([facility]) [address] [place] [address] Lymphocytes/100 WBC (Bld) 13.3 % Low 20.0-45.0 [facility] Comment on above: Performed By: #### L [id number] #### [facility] ([facility]) [address] [place] [address] MCH (RBC) [Entitic mass] 30.7 pg Normal 27.0-33.0 [facility] Comment on above: Performed By: #### L [id number] #### [facility] ([facility]) [address] [place] [address] MCV (RBC) [Entitic vol] 97.8 fL Normal 82.0-98.0 [facility] Comment on above: Performed By: #### L [id number] #### [facility] (BEAKER) [address] [place] [address] Monocytes (Bld) [#/Vol] 0.59 10*3/uL Normal 0.10-1.00 [facility] Comment on above: Performed By: #### L [id number] #### [facility] ([facility]) [address] [place] [address] Monocytes/100 WBC (Bld) 7.7 % Normal 5.0-12.0 [facility] Comment on above: Performed By: #### L [id number] #### [facility] ([facility]) [address] [place] [address] Neutrophils (Bld) [#/Vol] 5.77 10*3/uL Normal 1.60-7.60 [facility] Comment on above: Performed By: #### L [id number] #### [facility] ([facility]) [address] [place] [address] Neutrophils/100 WBC (Bld) 75.1 % High 40.0-72.0 [facility] Comment on above: Performed By: #### L [id number] #### [facility] ([facility]) [address] [place] [address] NRBC (PER 100 WBCS) BY AUTOMATED COUNT 0.0 % Normal 0 [facility] Comment on above: Performed By: #### L [id number] #### [facility] ([facility]) [address] [place] [address] PLATELETS (10*3/UL) IN BLOOD AUTOMATED COUNT 236 10*3/uL Normal 150-400 [facility] Comment on above: Performed By: #### L [id number] #### [facility] ([facility]) [address] [place] [address] RBC (Bld) [#/Vol] 2.77 10*6/uL Low 4.20-5.70 [facility] Comment on above: Performed By: #### L [id number] #### [facility] ([facility]) [address] [place] [address] WBC (Bld) [#/Vol] 7.68 10*3/uL Normal 4.00-10.60 [facility] Comment on above: Performed By: #### L [id number] #### [facility] ([facility]) [address] [place] [address] MAGNESIUMon 07-13-2024 Magnesium [Mass/Vol] 2.2 mg/dL Normal 1.9-2.7 [facility] Comment on above: Performed By: #### L [id number] #### [facility] ([facility]) [address] [place] [address] T4, FREEon 07-13-2024 THYROXINE (T4) FREE (NG/DL) IN SER/PLAS 0.92 ng/dL Normal 0.71-1.85 [facility] Comment on above: Performed By: #### L [id number] #### [facility] ([facility]) [address] [place] [address] TSHon 07-13-2024 THYROTROPIN (MIU/L) IN SER/PLAS BY DETECTION LIMIT <= 0.05 MIU/L 2.35 mIU/L Normal 0.34-5.60 [facility] Comment on above: Performed By: #### L [id number] #### [facility] ([facility]) [address] [place] [address] CBCon 07-12-2024 Erythrocyte distribution width (RBC) [Ratio] 16.0 % High 11.5-15.0 [facility] Comment on above: Performed By: #### L [id number] #### [facility] ([facility]) [address] [place] [address] ERYTHROCYTE MEAN CORPUSCULAR HEMOGLOBIN CONCENTRATION (G/DL) BY AUTOMATED 29.8 g/dL Low 32.0-35.0 [facility] Comment on above: Performed By: #### L [id number] #### [facility] ([facility]) [address] [place] [address] Hematocrit (Bld) [Volume fraction] 32.2 % Low 39.0-55.0 [facility] Comment on above: Performed By: #### L [id number] #### [facility] ([facility]) [address] [place] [address] Hemoglobin (Bld) [Mass/Vol] 9.6 g/dL Low 13.0-17.0 [facility] Comment on above: Performed By: #### L [id number] #### [facility] ([facility]) [address] [place] [address] MCH (RBC) [Entitic mass] 30.5 pg Normal 27.0-33.0 [facility] Comment on above: Performed By: #### L [id number] #### [facility] ([facility]) [address] [place] [address] MCV (RBC) [Entitic vol] 102.2 fL High 82.0-98.0 [facility] Comment on above: Performed By: #### L [id number] #### [facility] ([facility]) [address] [place] [address] PLATELETS (10*3/UL) IN BLOOD AUTOMATED COUNT 263 10*3/uL Normal 150-400 [facility] Comment on above: Performed By: #### L [id number] #### [facility] ([facility]) [address] [place] [address] RBC (Bld) [#/Vol] 3.15 10*6/uL Low 4.20-5.70 [facility] Comment on above: Performed By: #### L [id number] #### [facility] ([facility]) [address] [place] [address] WBC (Bld) [#/Vol] 7.80 10*3/uL Normal 4.00-10.60 [facility] Comment on above: Performed By: #### L [id number] #### [facility] ([facility]) [address] [place] [address] COMPREHENSIVE METABOLIC PANE Meir 07-12-2024 Albumin [Mass/Vol] 3.7 g/dL Normal 3.5-5.7 [facility] Comment on above: Performed By: #### L [id number] #### [facility] ([facility]) [address] [place] [address] ALP [Catalytic activity/Vol] 112 U/L High 34-104 [facility] Comment on above: Performed By: #### L [id number] #### [facility] ([facility]) [address] [place] [address] ALT [Catalytic activity/Vol] 13 U/L Normal 7-52 [facility] Comment on above: Performed By: #### L [id number] #### [facility] ([facility]) [address] [place] [address] Anion gap [Moles/Vol] 12 mmol/L Normal 7-20 [facility] Comment on above: Performed By: #### L [id number] #### [facility] ([facility]) [address] [place] [address] AST [Catalytic activity/Vol] 19 U/L Normal 13-39 [facility] Comment on above: Performed By: #### L [id number] #### [facility] ([facility]) [address] [place] [address] Bilirubin [Mass/Vol] 0.3 mg/dL Normal 0.3-1.0 [facility] Comment on above: Performed By: #### L [id number] #### [facility] ([facility]) [address] [place] [address] Calcium [Mass/Vol] 9.9 mg/dL Normal 8.6-10.3 [facility] Comment on above: Performed By: #### L [id number] #### [facility] ([facility]) [address] [place] [address] Chloride [Moles/Vol] 100 mmol/L Normal 98-107 [facility] Comment on above: Performed By: #### L [id number] #### [facility] ([facility]) [address] [place] [address] CO2 [Moles/Vol] 25 mmol/L Normal 21-31 [facility] Comment on above: Performed By: #### L [id number] #### [facility] ([facility]) [address] [place] [address] Creatinine [Mass/Vol] 0.62 mg/dL Low 0.70-1.30 [facility] Comment on above: Performed By: #### L [id number] #### [facility] ([facility]) [address] [place] [address] GLOMERULAR FILTRATION RATE ML/MIN/1.73 SQ M.PREDICTED 94.8 mL/min/1.73m*2 Normal >60.0 [facility] Comment on above: Result Comment: The [facility]???s estimated glomerular filtration rate (eGFR) will no longer include consideration of race in its calculation. The National Kidney Foundation???s eGFR Task Force developed new recommendations for the estimation of the glomerular filtration rate in the [place] They recommend immediate implementation of the new equation refit without the race variable in all laboratories because the calculation does not include race. In addition to not including race in the calculation and reporting, it included diversity in its development, and has acceptable performance characteristics and potential consequences that do not disproportionately affect any one group of individuals. Performed By: #### L [id number] #### [facility] ([facility]) [address] [place] [address] Glucose [Mass/Vol] 99 mg/dL Normal 70-100 [facility] Comment on above: Performed By: #### L [id number] #### [facility] ([facility]) [address] [place] [address] Potassium [Moles/Vol] 4.6 mmol/L Normal 3.5-5.1 [facility] Comment on above: Performed By: #### L [id number] #### [facility] ([facility]) [address] [place] [address] Protein [Mass/Vol] 7.4 g/dL Normal 6.0-8.3 [facility] Comment on above: Performed By: #### L [id number] #### [facility] ([facility]) [address] [place] [address] Sodium [Moles/Vol] 132 mmol/L Low 136-145 [facility] Comment on above: Performed By: #### L [id number] #### [facility] ([facility]) [address] [place] [address] Urea nitrogen [Mass/Vol] 47 mg/dL High 7-25 [facility] Comment on above: Performed By: #### L [id number] #### [facility] ([facility]) [address] [place] [address] UREA NITROGEN/CREATININE (MASS RATIO) IN SER/PLAS 75.8 Normal [facility] Comment on above: Performed By: #### L [id number] #### [facility] ([facility]) [address] [place] [address] MAGNESIUMon 07-12-2024 Magnesium [Mass/Vol] 1.9 mg/dL Normal 1.9-2.7 [facility] Comment on above: Performed By: #### L [id number] #### [facility] ([facility]) [address] [place] [address] PHOSPHORUSon 07-12-2024 Magnesium [Mass/Vol] 3.1 mg/dL Normal 2.5-5.0 [facility] Comment on above: Performed By: #### L [id number] #### [facility] ([facility]) [address] [place] [address] CBCon 07-09-2024 Erythrocyte distribution width (RBC) [Ratio] 15.6 % High 11.5-15.0 [facility] Comment on above: Performed By: #### L [id number] #### [facility] ([facility]) [address] [place] [address] ERYTHROCYTE MEAN CORPUSCULAR HEMOGLOBIN CONCENTRATION (G/DL) BY AUTOMATED 30.8 g/dL Low 32.0-35.0 [facility] Comment on above: Performed By: #### L [id number] #### [facility] ([facility]) [address] [place] [place] [address] Hematocrit (Bld) [Volume fraction] 30.2 % Low 39.0-55.0 [facility] Comment on above: Performed By: #### L [id number] #### [facility] ([facility]) [address] [place] [address] Hemoglobin (Bld) [Mass/Vol] 9.3 g/dL Low 13.0-17.0 [facility] Comment on above: Performed By: #### L [id number] #### [facility] ([facility]) [address] [place] [address] MCH (RBC) [Entitic mass] 30.7 pg Normal 27.0-33.0 [facility] Comment on above: Performed By: #### L [id number] #### [facility] ([facility]) [address] [place] [address] MCV (RBC) [Entitic vol] 99.7 fL High 82.0-98.0 [facility] Comment on above: Performed By: #### L [id number] #### [facility] ([facility]) [address] [place] [address] PLATELETS (10*3/UL) IN BLOOD AUTOMATED COUNT 259 10*3/uL Normal 150-400 [facility] Comment on above: Performed By: #### L [id number] #### [facility] ([facility]) [address] [place] [address] RBC (Bld) [#/Vol] 3.03 10*6/uL Low 4.20-5.70 [facility] Comment on above: Performed By: #### L [id number] #### [facility] ([facility]) [address] [place] [address] WBC (Bld) [#/Vol] 6.87 10*3/uL Normal 4.00-10.60 [facility] Comment on above: Performed By: #### L [id number] #### [facility] ([facility]) [address] [place] [address] COMPREHENSIVE METABOLIC PANE Meir 07-09-2024 Albumin [Mass/Vol] 3.3 g/dL Low 3.5-5.7 [facility] Comment on above: Performed By: #### L [id number] #### [facility] ([facility]) [address] [place] [address] ALP [Catalytic activity/Vol] 111 U/L High 34-104 [facility] Comment on above: Performed By: #### L [id number] #### [facility] (BEAKER) [address] [place] [address] ALT [Catalytic activity/Vol] 15 U/L Normal 7-52 [facility] Comment on above: Performed By: #### L [id number] #### [facility] (BEAKER) [address] [place] [address] Anion gap [Moles/Vol] 10 mmol/L Normal 7-20 [facility] Comment on above: Performed By: #### L [id number] #### [facility] (BEAKER) [address] [place] [address] AST [Catalytic activity/Vol] 17 U/L Normal 13-39 [facility] Comment on above: Performed By: #### L [id number] #### [facility] (BEAKER) [address] [place] [address] Bilirubin [Mass/Vol] 0.3 mg/dL Normal 0.3-1.0 [facility] Comment on above: Performed By: #### L [id number] #### [facility] (BEAKER) [address] [place] [address] Calcium [Mass/Vol] 9.2 mg/dL Normal 8.6-10.3 [facility] Comment on above: Performed By: #### L [id number] #### [facility] ([facility]) [address] [place] [address] Chloride [Moles/Vol] 101 mmol/L Normal 98-107 [facility] Comment on above: Performed By: #### L [id number] #### [facility] ([facility]ER) [address] [place] [address] CO2 [Moles/Vol] 28 mmol/L Normal 21-31 [facility] Comment on above: Performed By: #### L [id number] #### [facility] ([facility]) [address] [place] [address] Creatinine [Mass/Vol] 0.70 mg/dL Normal 0.70-1.30 [facility] Comment on above: Performed By: #### L [id number] #### [facility] ([facility]) [address] [place] [address] GLOMERULAR FILTRATION RATE ML/MIN/1.73 SQ M.PREDICTED 91.4 mL/min/1.73m*2 Normal >60.0 [facility] Comment on above: Result Comment: [facility]???s estimated glomerular filtration rate (eGFR) will no longer include consideration of race in its calculation. The National Kidney Foundation???s eGFR Task Force developed new recommendations for the estimation of the glomerular filtration rate in the [place] They recommend immediate implementation of the new equation refit without the race variable in all laboratories because the calculation does not include race. In addition to not including race in the calculation and reporting, it included diversity in its development, and has acceptable performance characteristics and potential consequences that do not disproportionately affect any one group of individuals. Performed By: #### L [id number] #### [facility] ([facility]) [address] [place] [address] Glucose [Mass/Vol] 87 mg/dL Normal 70-100 [facility] Comment on above: Performed By: #### L [id number] #### [facility] ([facility]) [address] [place] [address] Potassium [Moles/Vol] 4.8 mmol/L Normal 3.5-5.1 [facility] Comment on above: Performed By: #### L [id number] #### [facility] ([facility]) [address] [place] [address] Protein [Mass/Vol] 6.5 g/dL Normal 6.0-8.3 [facility] Comment on above: Performed By: #### L [id number] #### [facility] ([facility]) [address] [place] [address] Sodium [Moles/Vol] 134 mmol/L Low 136-145 [facility] Comment on above: Performed By: #### L [id number] #### [facility] ([facility]) [address] [place] [address] Urea nitrogen [Mass/Vol] 39 mg/dL High 7-25 [facility] Comment on above: Performed By: #### L [id number] #### [facility] ([facility]) [address] [place] [address] UREA NITROGEN/CREATININE (MASS RATIO) IN SER/PLAS 55.7 Normal [facility] Comment on above: Performed By: #### L [id number] #### [facility] ([facility]) [address] [place] [address] MAGNESIUMon 07-09-2024 Magnesium [Mass/Vol] 2.0 mg/dL Normal 1.9-2.7 [facility] Comment on above: Performed By: #### L [id number] #### [facility] ([facility]) [address] [place] [address] PHOSPHORUSon 07-09-2024 Magnesium [Mass/Vol] 3.2 mg/dL Normal 2.5-5.0 [facility] Comment on above: Performed By: #### L [id number] #### [facility] ([facility]) [address] [place] [address] TRIGLYCERIDESon 07-09-2024 FASTING? Unknown Normal [facility] Comment on above: Performed By: #### L [id number] #### [facility] ([facility]) [address] [place] [address] Magnesium [Mass/Vol] 119 mg/dL Normal 40-149 [facility] Comment on above: Result Comment: TRIG LYCERIDE REFERENCE RANGE: 20 YEARS AND OLDER CARDIOVASCULAR RISK LESS THAN 150 mg/dL LOW RISK 150 TO 199 mg/dL BORDERLINE RISK 200 mg/dL AND GREATER HIGH RISK Performed By: #### L [id number] #### [facility] ([facility]) [address] [place] [address] OCCULT BLOOD X 1, STOOLon HEMOGLOBIN GASTROINTESTINAL PRESENCE IN STOOL Negative Normal Negative, None Detected [facility] Comment on above: Performed By: #### L [id number] #### [facility] ([facility]) [address] [place] [address] CBCon 07-07-2024 Erythrocyte distribution width (RBC) [Ratio] 15.7 % High 11.5-15.0 [facility] Comment on above: Performed By: #### L [id number] #### [facility] ([facility]) [address] [place] [place] [address] ERYTHROCYTE MEAN CORPUSCULAR HEMOGLOBIN CONCENTRATION (G/DL) BY AUTOMATED 30.6 g/dL Low 32.0-35.0 [facility] Comment on above: Performed By: #### L [id number] #### [facility] ([facility]) [address] [place] [address] Hematocrit (Bld) [Volume fraction] 27.8 % Low 39.0-55.0 [facility] Comment on above: Performed By: #### L [id number] #### [facility] ([facility]) [address] [place] [address] Hemoglobin (Bld) [Mass/Vol] 8.5 g/dL Low 13.0-17.0 [facility] Comment on above: Performed By: #### L [id number] #### [facility] ([facility]) [address] [place] [place] [address] MCH (RBC) [Entitic mass] 30.1 pg Normal 27.0-33.0 [facility] Comment on above: Performed By: #### L [id number] #### [facility] ([facility]) [address] [place] [address] MCV (RBC) [Entitic vol] 98.6 fL High 82.0-98.0 [facility] Comment on above: Performed By: #### L [id number] #### [facility] ([facility]) [address] [place] [address] PLATELETS (10*3/UL) IN BLOOD AUTOMATED COUNT 271 10*3/uL Normal 150-400 [facility] Comment on above: Performed By: #### L [id number] #### [facility] ([facility]) [address] [place] [address] RBC (Bld) [#/Vol] 2.82 10*6/uL Low 4.20-5.70 [facility] Comment on above: Performed By: #### L [id number] #### [facility] ([facility]) [address] [place] [address] WBC (Bld) [#/Vol] 5.28 10*3/uL Normal 4.00-10.60 [facility] Comment on above: Performed By: #### L [id number] #### [facility] ([facility]) [address] [place] [address] COMPREHENSIVE METABOLIC PANE Meir 07-07-2024 Albumin [Mass/Vol] 3.1 g/dL Low 3.5-5.7 [facility] Comment on above: Performed By: #### L [id number] #### [facility] ([facility]) [address] [place] [address] ALP [Catalytic activity/Vol] 106 U/L High 34-104 [facility] Comment on above: Performed By: #### L [id number] #### [facility] ([facility]) [address] [place] [address] ALT [Catalytic activity/Vol] 14 U/L Normal 7-52 [facility] Comment on above: Performed By: #### L [id number] #### [facility] ([facility]) [address] [place] [address] Anion gap [Moles/Vol] 6 mmol/L Low 7-20 [facility] Comment on above: Performed By: #### L [id number] #### [facility] ([facility]) [address] [place] [address] AST [Catalytic activity/Vol] 18 U/L Normal 13-39 [facility] Comment on above: Performed By: #### L [id number] #### [facility] ([facility]) [address] [place] [address] Bilirubin [Mass/Vol] 0.3 mg/dL Normal 0.3-1.0 [facility] Comment on above: Performed By: #### L [id number] #### [facility] ([facility]) [address] [place] [address] Calcium [Mass/Vol] 9.4 mg/dL Normal 8.6-10.3 [facility] Comment on above: Performed By: #### L [id number] #### [facility] ([facility]) [address] [place] [address] Chloride [Moles/Vol] 101 mmol/L Normal 98-107 [facility] Comment on above: Performed By: #### L [id number] #### [facility] ([facility]) [address] [place] [address] CO2 [Moles/Vol] 34 mmol/L High 21-31 [facility] Comment on above: Performed By: #### L [id number] #### [facility] ([facility]) [address] [place] [address] Creatinine [Mass/Vol] 0.67 mg/dL Low 0.70-1.30 [facility] Comment on above: Performed By: #### L [id number] #### [facility] ([facility]) [address] [place] [address] GLOMERULAR FILTRATION RATE ML/MIN/1.73 SQ M.PREDICTED 92.6 mL/min/1.73m*2 Normal >60.0 [facility] Comment on above: Result Comment: The [facility]???s estimated glomerular filtration rate (eGFR) will no longer include consideration of race in its calculation. The National Kidney Foundation???s eGFR Task Force developed new recommendations for the estimation of the glomerular filtration rate in the [place] They recommend immediate implementation of the new equation refit without the race variable in all laboratories because the calculation does not include race. In addition to not including race in the calculation and reporting, it included diversity in its development, and has acceptable performance characteristics and potential consequences that do not disproportionately affect any one group of individuals. Performed By: #### L [id number] #### [facility] ([facility]) [address] [place] [address] Glucose [Mass/Vol] 90 mg/dL Normal 70-100 [facility] Comment on above: Performed By: #### L [id number] #### [facility] ([facility]) [address] [place] [address] Potassium [Moles/Vol] 4.8 mmol/L Normal 3.5-5.1 [facility] Comment on above: Performed By: #### L [id number] #### [facility] ([facility]) [address] [place] [address] Protein [Mass/Vol] 6.5 g/dL Normal 6.0-8.3 [facility] Comment on above: Performed By: #### L [id number] #### [facility] ([facility]) [address] [place] [address] Sodium [Moles/Vol] 136 mmol/L Normal 136-145 [facility] Comment on above: Performed By: #### L [id number] #### [facility] ([facility]) [address] [place] [address] Urea nitrogen [Mass/Vol] 42 mg/dL High 7-25 [facility] Comment on above: Performed By: #### L [id number] #### [facility] ([facility]) [address] [place] [address] UREA NITROGEN/CREATININE (MASS RATIO) IN SER/PLAS 62.7 Normal [facility] Comment on above: Performed By: #### L [id number] #### [facility] ([facility]) [address] [place] [address] MAGNESIUMon 07-07-2024 Magnesium [Mass/Vol] 2.0 mg/dL Normal 1.9-2.7 [facility] Comment on above: Performed By: #### L [id number] #### [facility] ([facility]) [address] [place] [address] PHOSPHORUSon 07-07-2024 Magnesium [Mass/Vol] 3.4 mg/dL Normal 2.5-5.0 [facility] Comment on above: Performed By: #### L [id number] #### [facility] ([facility]) [address] [place] [address] BASIC METABOLIC PANELon 11 Anion gap [Moles/Vol] 8 mmol/L Normal 7-20 [facility] Comment on above: Performed By: #### L [id number] #### [facility] ([facility]) [address] [place] [address] Calcium [Mass/Vol] 9.4 mg/dL Normal 8.6-10.3 [facility] Comment on above: Performed By: #### L [id number] #### [facility] ([facility]) [address] [place] [address] Chloride [Moles/Vol] 98 mmol/L Normal 98-107 [facility] Comment on above: Performed By: #### L [id number] #### [facility] ([facility]) [address] [place] [address] CO2 [Moles/Vol] 34 mmol/L High 21-31 [facility] Comment on above: Performed By: #### L [id number] #### [facility] ([facility]) [address] [place] [address] Creatinine [Mass/Vol] 0.96 mg/dL Normal 0.70-1.30 [facility] Comment on above: Performed By: #### L [id number] #### [facility] ([facility]) [address] [place] [address] GLOMERULAR FILTRATION RATE ML/MIN/1.73 SQ M.PREDICTED 78.4 mL/min/1.73m*2 Normal >60.0 [facility] Comment on above: Result Comment: The [facility]???s estimated glomerular filtration rate (eGFR) will no longer include consideration of race in its calculation. The National Kidney Foundation???s eGFR Task Force developed new recommendations for the estimation of the glomerular filtration rate in the [place] They recommend immediate implementation of the new equation refit without the race variable in all laboratories because the calculation does not include race. In addition to not including race in the calculation and reporting, it included diversity in its development, and has acceptable performance characteristics and potential consequences that do not disproportionately affect any one group of individuals. Performed By: #### L [id number] #### [facility] ([facility]) [address] [facility] [address] Glucose [Mass/Vol] 97 mg/dL Normal 70-100 [facility] Comment on above: Performed By: #### L [id number] #### [facility] ([facility]) [address] [place] [address] Potassium [Moles/Vol] 4.6 mmol/L Normal 3.5-5.1 [facility] Comment on above: Performed By: #### L [id number] #### [facility] ([facility]) [address] [place] [address] Sodium [Moles/Vol] 135 mmol/L Low 136-145 [facility] Comment on above: Performed By: #### L [id number] #### [facility] ([facility]) [address] [place] [address] Urea nitrogen [Mass/Vol] 52 mg/dL High 7-25 [facility] Comment on above: Performed By: #### L [id number] #### [facility] ([facility]) [address] [place] [address] UREA NITROGEN/CREATININE (MASS RATIO) IN SER/PLAS 54.2 Normal [facility] Comment on above: Performed By: #### L [id number] #### [facility] ([facility]) [address] [place] [address] MAGNESIUMon 07-06-2024 Magnesium [Mass/Vol] 2.2 mg/dL Normal 1.9-2.7 [facility] Comment on above: Performed By: #### L [id number] #### [facility] ([facility]) [address] [place] [address] CBCon 07-05-2024 Erythrocyte distribution width (RBC) [Ratio] 15.9 % High 11.5-15.0 [facility] Comment on above: Performed By: #### L [id number] #### [facility] ([facility]) [address] [place] [address] ERYTHROCYTE MEAN CORPUSCULAR HEMOGLOBIN CONCENTRATION (G/DL) BY AUTOMATED 30.2 g/dL Low 32.0-35.0 [facility] Comment on above: Performed By: #### L [id number] #### [facility] ([facility]) [address] [place] [address] Hematocrit (Bld) [Volume fraction] 28.1 % Low 39.0-55.0 [facility] Comment on above: Performed By: #### L [id number] #### [facility] ([facility]) [address] [place] [address] Hemoglobin (Bld) [Mass/Vol] 8.5 g/dL Low 13.0-17.0 [facility] Comment on above: Performed By: #### L [id number] #### [facility] ([facility]) [address] [place] [address] MCH (RBC) [Entitic mass] 30.5 pg Normal 27.0-33.0 [facility] Comment on above: Performed By: #### L [id number] #### [facility] ([facility]) [address] [place] [address] MCV (RBC) [Entitic vol] 100.7 fL High 82.0-98.0 [facility] Comment on above: Performed By: #### L [id number] #### [facility] ([facility]) [address] [place] [address] PLATELETS (10*3/UL) IN BLOOD AUTOMATED COUNT 281 10*3/uL Normal 150-400 [facility] Comment on above: Performed By: #### L [id number] #### [facility] ([facility]) [address] [place] [address] RBC (Bld) [#/Vol] 2.79 10*6/uL Low 4.20-5.70 [facility] Comment on above: Performed By: #### L [id number] #### [facility] ([facility]) [address] [place] [address] WBC (Bld) [#/Vol] 7.91 10*3/uL Normal 4.00-10.60 [facility] Comment on above: Performed By: #### L [id number] #### [facility] ([facility]) [address] [place] [address] COMPREHENSIVE METABOLIC PANE [facility] 07-05-2024 Albumin [Mass/Vol] 3.1 g/dL Low 3.5-5.7 [facility] Comment on above: Performed By: #### L [id number] #### [facility] ([facility]) [address] [place] [address] ALP [Catalytic activity/Vol] 108 U/L High 34-104 [facility] Comment on above: Performed By: #### L [id number] #### [facility] ([facility]) [address] [place] [address] ALT [Catalytic activity/Vol] 15 U/L Normal 7-52 [facility] Comment on above: Performed By: #### L [id number] #### [facility] ([facility]) [address] [place] [address] Anion gap [Moles/Vol] 7 mmol/L Normal 7-20 [facility] Comment on above: Performed By: #### L [id number] #### [facility] ([facility]) [address] [place] [address] AST [Catalytic activity/Vol] 21 U/L Normal 13-39 [facility] Comment on above: Performed By: #### L [id number] #### [facility] ([facility]) [address] [place] [address] Bilirubin [Mass/Vol] 0.2 mg/dL Low 0.3-1.0 [facility] Comment on above: Performed By: #### L [id number] #### [facility] ([facility]) [address] [place] [address] Calcium [Mass/Vol] 9.5 mg/dL Normal 8.6-10.3 [facility] Comment on above: Performed By: #### L [id number] #### [facility] ([facility]) [address] [place] [address] Chloride [Moles/Vol] 101 mmol/L Normal 98-107 [facility] Comment on above: Performed By: #### L [id number] #### [facility] ([facility]) [address] [place] [address] CO2 [Moles/Vol] 34 mmol/L High 21-31 [facility] Comment on above: Performed By: #### L [id number] #### [facility] ([facility]) [address] [place] [address] Creatinine [Mass/Vol] 0.99 mg/dL Normal 0.70-1.30 [facility] Comment on above: Performed By: #### L [id number] #### [facility] ([facility]) [address] [place] [address] GLOMERULAR FILTRATION RATE ML/MIN/1.73 SQ M.PREDICTED 75.6 mL/min/1.73m*2 Normal >60.0 [facility] Comment on above: Result Comment: The [facility]???s estimated glomerular filtration rate (eGFR) will no longer include consideration of race in its calculation. The National Kidney Foundation???s eGFR Task Force developed new recommendations for the estimation of the glomerular filtration rate in the [place] They recommend immediate implementation of the new equation refit without the race variable in all laboratories because the calculation does not include race. In addition to not including race in the calculation and reporting, it included diversity in its development, and has acceptable performance characteristics and potential consequences that do not disproportionately affect any one group of individuals. Performed By: #### L [id number] #### [facility] ([facility]) [address] [place] [address] Glucose [Mass/Vol] 105 mg/dL High 70-100 [facility] Comment on above: Performed By: #### L [id number] #### [facility] ([facility]) [address] [place] [address] Potassium [Moles/Vol] 4.6 mmol/L Normal 3.5-5.1 [facility] Comment on above: Performed By: #### L [id number] #### [facility] ([facility]) [address] [place] [address] Protein [Mass/Vol] 6.4 g/dL Normal 6.0-8.3 [facility] Comment on above: Performed By: #### L [id number] #### [facility] ([facility]) [address] [place] [address] Sodium [Moles/Vol] 137 mmol/L Normal 136-145 [facility] Comment on above: Performed By: #### L [id number] #### [facility] ([facility]) [address] [place] [address] Urea nitrogen [Mass/Vol] 45 mg/dL High 7-25 [facility] Comment on above: Performed By: #### L [id number] #### [facility] ([facility]) [address] [place] [address] UREA NITROGEN/CREATININE (MASS RATIO) IN SER/PLAS 45.5 Normal [facility] Comment on above: Performed By: #### L [id number] #### [facility] ([facility]) [address] [place] [address] MAGNESIUMon 07-05-2024 Magnesium [Mass/Vol] 2.1 mg/dL Normal 1.9-2.7 [facility] Comment on above: Performed By: #### L [id number] #### [facility] ([facility]) [address] [place] [address] PHOSPHORUSon 07-05-2024 Magnesium [Mass/Vol] 3.2 mg/dL Normal 2.5-5.0 [facility] Comment on above: Performed By: #### L [id number] #### [facility] ([facility]) [address] [place] [address] BASIC METABOLIC PANELon 11-0 Anion gap [Moles/Vol] 9 mmol/L Normal 7-20 [facility] Comment on above: Performed By: #### L [id number] #### [facility] ([facility]) [address] [place] [address] Calcium [Mass/Vol] 9.2 mg/dL Normal 8.6-10.3 [facility] Comment on above: Performed By: #### L [id number] #### [facility] ([facility]) [address] [place] [address] Chloride [Moles/Vol] 101 mmol/L Normal 98-107 [facility] Comment on above: Performed By: #### L [id number] #### [facility] ([facility]) [address] [place] [address] CO2 [Moles/Vol] 32 mmol/L High 21-31 [facility] Comment on above: Performed By: #### L [id number] #### [facility] ([facility]) [address] [place] [address] Creatinine [Mass/Vol] 0.72 mg/dL Normal 0.70-1.30 [facility] Comment on above: Performed By: #### L [id number] #### [facility] ([facility]) [address] [place] [address] GLOMERULAR FILTRATION RATE ML/MIN/1.73 SQ M.PREDICTED 90.7 mL/min/1.73m*2 Normal >60.0 [facility] Comment on above: Result Comment: [facility]???s estimated glomerular filtration rate (eGFR) will no longer include consideration of race in its calculation. The National Kidney Foundation???s eGFR Task Force developed new recommendations for the estimation of the glomerular filtration rate in the [place] They recommend immediate implementation of the new equation refit without the race variable in all laboratories because the calculation does not include race. In addition to not including race in the calculation and reporting, it included diversity in its development, and has acceptable performance characteristics and potential consequences that do not disproportionately affect any one group of individuals. Performed By: #### L [id number] #### [facility] ([facility]) [address] [place] [address] Glucose [Mass/Vol] 120 mg/dL High 70-100 [facility] Comment on above: Performed By: #### L [id number] #### [facility] ([facility]) [address] [place] [address] Potassium [Moles/Vol] 4.5 mmol/L Normal 3.5-5.1 [facility] Comment on above: Performed By: #### L [id number] #### [facility] ([facility]) [address] [place] [address] Sodium [Moles/Vol] 137 mmol/L Normal 136-145 [facility] Comment on above: Performed By: #### L [id number] #### [facility] ([facility]) [address] [place] [address] Urea nitrogen [Mass/Vol] 39 mg/dL High 7-25 [facility] Comment on above: Performed By: #### L [id number] #### [facility] ([facility]) [address] [place] [address] UREA NITROGEN/CREATININE (MASS RATIO) IN SER/PLAS 54.2 Normal [facility] Comment on above: Performed By: #### L [id number] #### [facility] ([facility]) [address] [place] [address] CBC WITH AUTO DIFFERENTIALon 07-04-2024 Basophils (Bld) [#/Vol] 0.02 10*3/uL Normal 0.00-0.20 [facility] Comment on above: Performed By: #### L [id number] #### [facility] ([facility]) [address] [place] [address] Basophils/100 WBC (Bld) 0.3 % Normal 0.0-1.0 [facility] Comment on above: Performed By: #### L [id number] #### [facility] ([facility]) [address] [place] [address] Eosinophils (Bld) [#/Vol] 0.80 10*3/uL High 0.00-0.50 [facility] Comment on above: Performed By: #### L [id number] #### [facility] ([facility]) [address] [place] [address] Eosinophils/100 WBC (Bld) 12.1 % High 0.0-6.0 [facility] Comment on above: Performed By: #### L [id number] #### [facility] ([facility]) [address] [place] [address] Erythrocyte distribution width (RBC) [Ratio] 15.8 % High 11.5-15.0 [facility] Comment on above: Performed By: #### L [id number] #### [facility] ([facility]) [address] [place] [address] ERYTHROCYTE MEAN CORPUSCULAR HEMOGLOBIN CONCENTRATION (G/DL) BY AUTOMATED 31.1 g/dL Low 32.0-35.0 [facility] Comment on above: Performed By: #### L [id number] #### [facility] ([facility]) [address] [place] [address] Hematocrit (Bld) [Volume fraction] 27.3 % Low 39.0-55.0 [facility] Comment on above: Performed By: #### L [id number] #### [facility] ([facility]) [address] [place] [address] Hemoglobin (Bld) [Mass/Vol] 8.5 g/dL Low 13.0-17.0 [facility] Comment on above: Performed By: #### L [id number] #### [facility] ([facility]) [address] [place] [address] Immature granulocytes (Bld) [#/Vol] 0.02 10*3/uL Normal 0.00-0.20 [facility] Comment on above: Performed By: #### L [id number] #### [facility] ([facility]) [address] [place] [address] Immature granulocytes/100 WBC (Bld) 0.3 % Normal 0.0-1.0 [facility] Comment on above: Performed By: #### L [id number] #### [facility] ([facility]) [address] [place] [address] Lymphocytes (Bld) [#/Vol] 0.89 10*3/uL Low 1.20-4.00 [facility] Comment on above: Performed By: #### L [id number] #### [facility] ([facility]) [address] [place] [address] Lymphocytes/100 WBC (Bld) 13.4 % Low 20.0-45.0 [facility] Comment on above: Performed By: #### L [id number] #### [facility] ([facility]) [address] [place] [address] MCH (RBC) [Entitic mass] 30.5 pg Normal 27.0-33.0 [facility] Comment on above: Performed By: #### L [id number] #### [facility] ([facility]) [address] [place] [address] MCV (RBC) [Entitic vol] 97.8 fL Normal 82.0-98.0 [facility] Comment on above: Performed By: #### L [id number] #### [facility] ([facility]) [address] [place] [address] Monocytes (Bld) [#/Vol] 0.53 10*3/uL Normal 0.10-1.00 [facility] Comment on above: Performed By: #### L [id number] #### [facility] ([facility]) [address] [place] [address] Monocytes/100 WBC (Bld) 8.0 % Normal 5.0-12.0 [facility] Comment on above: Performed By: #### L [id number] #### [facility] ([facility]) [address] [place] [address] Neutrophils (Bld) [#/Vol] 4.37 10*3/uL Normal 1.60-7.60 [facility] Comment on above: Performed By: #### L [id number] #### [facility] ([facility]) [address] [place] [address] Neutrophils/100 WBC (Bld) 65.9 % Normal 40.0-72.0 [facility] Comment on above: Performed By: #### L [id number] #### [facility] ([facility]) [address] [place] [address] NRBC (PER 100 WBCS) BY AUTOMATED COUNT 0.0 % Normal 0 [facility] Comment on above: Performed By: #### L [id number] #### [facility] ([facility]) [address] [place] [address] PLATELETS (10*3/UL) IN BLOOD AUTOMATED COUNT 272 10*3/uL Normal 150-400 [facility] Comment on above: Performed By: #### L [id number] #### [facility] ([facility]) [address] [place] [address] RBC (Bld) [#/Vol] 2.79 10*6/uL Low 4.20-5.70 [facility] Comment on above: Performed By: #### L [id number] #### [facility] ([facility]) [address] [place] [address] WBC (Bld) [#/Vol] 6.63 10*3/uL Normal 4.00-10.60 [facility] Comment on above: Performed By: #### L [id number] #### [facility] ([facility]) [address] [place] [address] MAGNESIUMon 07-04-2024 Magnesium [Mass/Vol] 2.0 mg/dL Normal 1.9-2.7 [facility] Comment on above: Performed By: #### L [id number] #### [facility] ([facility]) [address] [place] [address] CBCon 07-02-2024 Erythrocyte distribution width (RBC) [Ratio] 15.9 % High 11.5-15.0 [facility] Comment on above: Performed By: #### L [id number] #### [facility] ([facility]) [address] [place] [address] ERYTHROCYTE MEAN CORPUSCULAR HEMOGLOBIN CONCENTRATION (G/DL) BY AUTOMATED 31.0 g/dL Low 32.0-35.0 [facility] Comment on above: Performed By: #### L [id number] #### [facility] ([facility]) [address] [place] [address] Hematocrit (Bld) [Volume fraction] 26.8 % Low 39.0-55.0 [facility] Comment on above: Performed By: #### L [id number] #### [facility] ([facility]) [address] [place] [address] Hemoglobin (Bld) [Mass/Vol] 8.3 g/dL Low 13.0-17.0 [facility] Comment on above: Performed By: #### L [id number] #### [facility] ([facility]) [address] [place] [address] MCH (RBC) [Entitic mass] 31.1 pg Normal 27.0-33.0 [facility] Comment on above: Performed By: #### L [id number] #### [facility] ([facility]) [address] [place] [address] MCV (RBC) [Entitic vol] 100.4 fL High 82.0-98.0 [facility] Comment on above: Performed By: #### L [id number] #### [facility] ([facility]) [address] [place] [address] PLATELETS (10*3/UL) IN BLOOD AUTOMATED COUNT 256 10*3/uL Normal 150-400 [facility] Comment on above: Performed By: #### L [id number] #### [facility] ([facility]) [address] [place] [address] RBC (Bld) [#/Vol] 2.67 10*6/uL Low 4.20-5.70 [facility] Comment on above: Performed By: #### L [id number] #### [facility] ([facility]) [address] [place] [address] WBC (Bld) [#/Vol] 7.90 10*3/uL Normal 4.00-10.60 [facility] Comment on above: Performed By: #### L [id number] #### [facility] ([facility]) [address] [place] [address] COMPREHENSIVE METABOLIC PANE [facility] 07-02-2024 Albumin [Mass/Vol] 2.8 g/dL Low 3.5-5.7 [facility] Comment on above: Performed By: #### L [id number] #### [facility] ([facility]) [address] [place] [address] ALP [Catalytic activity/Vol] 107 U/L High 34-104 [facility] Comment on above: Performed By: #### L [id number] #### [facility] ([facility]) [address] [place] [address] ALT [Catalytic activity/Vol] 12 U/L Normal 7-52 [facility] Comment on above: Performed By: #### L [id number] #### [facility] ([facility]) [address] [place] [address] Anion gap [Moles/Vol] 6 mmol/L Low 7-20 [facility] Comment on above: Performed By: #### L [id number] #### [facility] ([facility]) [address] [place] [address] AST [Catalytic activity/Vol] 18 U/L Normal 13-39 [facility] Comment on above: Performed By: #### L [id number] #### [facility] ([facility]) [address] [place] [address] Bilirubin [Mass/Vol] 0.3 mg/dL Normal 0.3-1.0 [facility] Comment on above: Performed By: #### L [id number] #### [facility] ([facility]) [address] [place] [address] Calcium [Mass/Vol] 9.0 mg/dL Normal 8.6-10.3 [facility] Comment on above: Performed By: #### L [id number] #### [facility] ([facility]) [address] [place] [address] Chloride [Moles/Vol] 100 mmol/L Normal 98-107 [facility] Comment on above: Performed By: #### L [id number] #### [facility] ([facility]) [address] [place] [address] CO2 [Moles/Vol] 33 mmol/L High 21-31 [facility] Comment on above: Performed By: #### L [id number] #### [facility] ([facility]) [address] [place] [address] Creatinine [Mass/Vol] 0.99 mg/dL Normal 0.70-1.30 [facility] Comment on above: Performed By: #### L [id number] #### [facility] ([facility]) [address] [place] [address] GLOMERULAR FILTRATION RATE ML/MIN/1.73 SQ M.PREDICTED 75.6 mL/min/1.73m*2 Normal >60.0 [facility] Comment on above: Result Comment: The [facility]???s estimated glomerular filtration rate (eGFR) will no longer include consideration of race in its calculation. The National Kidney Foundation???s eGFR Task Force developed new recommendations for the estimation of the glomerular filtration rate in the [place] They recommend immediate implementation of the new equation refit without the race variable in all laboratories because the calculation does not include race. In addition to not including race in the calculation and reporting, it included diversity in its development, and has acceptable performance characteristics and potential consequences that do not disproportionately affect any one group of individuals. Performed By: #### L [id number] #### [facility] ([facility]) [address] [place] [place] [address] Glucose [Mass/Vol] 96 mg/dL Normal 70-100 [facility] Comment on above: Performed By: #### L [id number] #### [facility] ([facility]) [address] [place] [address] Potassium [Moles/Vol] 4.4 mmol/L Normal 3.5-5.1 [facility] Comment on above: Performed By: #### L [id number] #### [facility] ([facility]) [address] [address] Protein [Mass/Vol] 5.8 g/dL Low 6.0-8.3 [facility] Comment on above: Performed By: #### L [id number] #### [facility] ([facility]) [address] [place] [address] Sodium [Moles/Vol] 135 mmol/L Low 136-145 [facility] Comment on above: Performed By: #### L [id number] #### [facility] ([facility]) [address] [place] [address] Urea nitrogen [Mass/Vol] 39 mg/dL High 7-25 [facility] Comment on above: Performed By: #### L [id number] #### [facility] ([facility]) [address] [place] [address] UREA NITROGEN/CREATININE (MASS RATIO) IN SER/PLAS 39.4 Normal [facility] Comment on above: Performed By: #### L [id number] #### [facility] ([facility]) [address] [place] [address] MAGNESIUMon 07-02-2024 Magnesium [Mass/Vol] 2.0 mg/dL Normal 1.9-2.7 [facility] Comment on above: Performed By: #### L [id number] #### [facility] ([facility]) [address] [place] [address] PHOSPHORUSon 07-02-2024 Magnesium [Mass/Vol] 3.2 mg/dL Normal 2.5-5.0 [facility] Comment on above: Performed By: #### L [id number] #### [facility] ([facility]) [address] [place] [address] TRIGLYCERIDESon 07-02-2024 FASTING? UNKNOWN Normal [facility] Comment on above: Performed By: #### L [id number] #### [facility] ([facility]) [address] [place] [address] Magnesium [Mass/Vol] 126 mg/dL Normal 40-149 [facility] Comment on above: Result Comment: TRIG LYCERIDE REFERENCE RANGE: 20 YEARS AND OLDER CARDIOVASCULAR RISK LESS THAN 150 mg/dL LOW RISK 150 TO 199 mg/dL BORDERLINE RISK 200 mg/dL AND GREATER HIGH RISK Performed By: #### L [id number] #### [facility] ([facility]) [address] [place] [address] CBCon 06-30-2024 Erythrocyte distribution width (RBC) [Ratio] 15.6 % High 11.5-15.0 [facility] Comment on above: Performed By: #### L [id number] #### [facility] ([facility]) [address] [place] [address] ERYTHROCYTE MEAN CORPUSCULAR HEMOGLOBIN CONCENTRATION (G/DL) BY AUTOMATED 31.3 g/dL Low 32.0-35.0 [facility] Comment on above: Performed By: #### L [id number] #### [facility] ([facility]) [address] [place] [address] Hematocrit (Bld) [Volume fraction] 28.8 % Low 39.0-55.0 [facility] Comment on above: Performed By: #### L [id number] #### [facility] ([facility]) [address] [place] [address] Hemoglobin (Bld) [Mass/Vol] 9.0 g/dL Low 13.0-17.0 [facility] Comment on above: Performed By: #### L [id number] #### [facility] ([facility]) [address] [place] [address] MCH (RBC) [Entitic mass] 30.4 pg Normal 27.0-33.0 [facility] Comment on above: Performed By: #### L [id number] #### [facility] ([facility]) [address] [place] [address] MCV (RBC) [Entitic vol] 97.3 fL Normal 82.0-98.0 [facility] Comment on above: Performed By: #### L [id number] #### [facility] ([facility]) [address] [place] [address] PLATELETS (10*3/UL) IN BLOOD AUTOMATED COUNT 349 10*3/uL Normal 150-400 [facility] Comment on above: Performed By: #### L [id number] #### [facility] ([facility]) [address] [place] [address] RBC (Bld) [#/Vol] 2.96 10*6/uL Low 4.20-5.70 [facility] Comment on above: Performed By: #### L [id number] #### [facility] ([facility]) [address] [place] [address] WBC (Bld) [#/Vol] 8.30 10*3/uL Normal 4.00-10.60 [facility] Comment on above: Performed By: #### L [id number] #### [facility] ([facility]) [address] [place] [address] COMPREHENSIVE METABOLIC PANE Meir 06-30-2024 Albumin [Mass/Vol] 2.9 g/dL Low 3.5-5.7 [facility] Comment on above: Performed By: #### L [id number] #### [facility] ([facility]) [address] [place] [address] ALP [Catalytic activity/Vol] 128 U/L High 34-104 [facility] Comment on above: Performed By: #### L [id number] #### [facility] ([facility]) [address] [place] [address] ALT [Catalytic activity/Vol] 14 U/L Normal 7-52 [facility] Comment on above: Performed By: #### L [id number] #### [facility] ([facility]) [address] [place] [address] Anion gap [Moles/Vol] 6 mmol/L Low 7-20 [facility] Comment on above: Performed By: #### L [id number] #### [facility] ([facility]) [address] [place] [address] AST [Catalytic activity/Vol] 13 U/L Normal 13-39 [facility] Comment on above: Performed By: #### L [id number] #### [facility] ([facility]) [address] [place] [address] Bilirubin [Mass/Vol] 0.3 mg/dL Normal 0.3-1.0 [facility] Comment on above: Performed By: #### L [id number] #### [facility] ([facility]) [address] [place] [address] Calcium [Mass/Vol] 8.8 mg/dL Normal 8.6-10.3 [facility] Comment on above: Performed By: #### L [id number] #### [facility] ([facility]) [address] [place] [address] Chloride [Moles/Vol] 101 mmol/L Normal 98-107 [facility] Comment on above: Performed By: #### L [id number] #### [facility] ([facility]) [address] [place] [address] CO2 [Moles/Vol] 34 mmol/L High 21-31 [facility] Comment on above: Performed By: #### L [id number] #### [facility] ([facility]) [address] [place] [address] Creatinine [Mass/Vol] 0.51 mg/dL Low 0.70-1.30 [facility] Comment on above: Performed By: #### L [id number] #### [facility] ([facility]) [address] [place] [address] GLOMERULAR FILTRATION RATE ML/MIN/1.73 SQ M.PREDICTED 100.6 mL/min/1.73m*2 Normal >60.0 [facility] Comment on above: Result Comment: The [facility]???s estimated glomerular filtration rate (eGFR) will no longer include consideration of race in its calculation. The National Kidney Foundation???s eGFR Task Force developed new recommendations for the estimation of the glomerular filtration rate in the [place] They recommend immediate implementation of the new equation refit without the race variable in all laboratories because the calculation does not include race. In addition to not including race in the calculation and reporting, it included diversity in its development, and has acceptable performance characteristics and potential consequences that do not disproportionately affect any one group of individuals. Performed By: #### L [id number] #### [facility] ([facility]) [address] [place] [address] Glucose [Mass/Vol] 98 mg/dL Normal 70-100 [facility] Comment on above: Performed By: #### L [id number] #### [facility] ([facility]) [address] [place] [address] Potassium [Moles/Vol] 3.4 mmol/L Low 3.5-5.1 [facility] Comment on above: Performed By: #### L [id number] #### [facility] ([facility]) [address] [place] [address] Protein [Mass/Vol] 6.0 g/dL Normal 6.0-8.3 [facility] Comment on above: Performed By: #### L [id number] #### [facility] ([facility]) [address] [place] [address] Sodium [Moles/Vol] 138 mmol/L Normal 136-145 [facility] Comment on above: Performed By: #### L [id number] #### [facility] ([facility]) [address] [place] [address] Urea nitrogen [Mass/Vol] 20 mg/dL Normal 7-25 [facility] Comment on above: Performed By: #### L [id number] #### [facility] ([facility]) [address] [place] [address] UREA NITROGEN/CREATININE (MASS RATIO) IN SER/PLAS 39.2 Normal [facility] Comment on above: Performed By: #### L [id number] #### [facility] ([facility]) [address] [place] [address] MAGNESIUMon 06-30-2024 Magnesium [Mass/Vol] 1.9 mg/dL Normal 1.9-2.7 [facility] Comment on above: Performed By: #### L [id number] #### [facility] ([facility]) [address] [place] [address] PHOSPHORUSon 06-30-2024 Magnesium [Mass/Vol] 3.1 mg/dL Normal 2.5-5.0 [facility] Comment on above: Performed By: #### L [id number] #### [facility] ([facility]) [address] [place] [address] BASIC METABOLIC PANELon 06-02 Anion gap [Moles/Vol] 8 mmol/L Normal 7-20 [facility] Comment on above: Performed By: #### L [id number] #### [facility] ([facility]) [address] [place] [address] Calcium [Mass/Vol] 8.9 mg/dL Normal 8.6-10.3 [facility] Comment on above: Performed By: #### L [id number] #### [facility] ([facility]) [address] [place] [address] Chloride [Moles/Vol] 102 mmol/L Normal 98-107 [facility] Comment on above: Performed By: #### L [id number] #### [facility] ([facility]) [address] [place] [address] CO2 [Moles/Vol] 32 mmol/L High 21-31 [facility] Comment on above: Performed By: #### L [id number] #### [facility] ([facility]) [address] [place] [address] Creatinine [Mass/Vol] 0.47 mg/dL Low 0.70-1.30 [facility] Comment on above: Performed By: #### L [id number] #### [facility] ([facility]) [address] [place] [address] GLOMERULAR FILTRATION RATE ML/MIN/1.73 SQ M.PREDICTED 103.1 mL/min/1.73m*2 Normal >60.0 [facility] Comment on above: Result Comment: The [facility]???s estimated glomerular filtration rate (eGFR) will no longer include consideration of race in its calculation. The National Kidney Foundation???s eGFR Task Force developed new recommendations for the estimation of the glomerular filtration rate in the [place] They recommend immediate implementation of the new equation refit without the race variable in all laboratories because the calculation does not include race. In addition to not including race in the calculation and reporting, it included diversity in its development, and has acceptable performance characteristics and potential consequences that do not disproportionately affect any one group of individuals. Performed By: #### L [id number] #### [facility] ([facility]) [address] [place] [address] Glucose [Mass/Vol] 88 mg/dL Normal 70-100 [facility] Comment on above: Performed By: #### L [id number] #### [facility] ([facility]) [address] [place] [address] Potassium [Moles/Vol] 3.8 mmol/L Normal 3.5-5.1 [facility] Comment on above: Performed By: #### L [id number] #### [facility] ([facility]) [address] [place] [address] Sodium [Moles/Vol] 138 mmol/L Normal 136-145 [facility] Comment on above: Performed By: #### L [id number] #### [facility] ([facility]) [address] [place] [address] Urea nitrogen [Mass/Vol] 17 mg/dL Normal 7-25 [facility] Comment on above: Performed By: #### L [id number] #### [facility] ([facility]) [address] [place] [address] UREA NITROGEN/CREATININE (MASS RATIO) IN SER/PLAS 36.2 Normal [facility] Comment on above: Performed By: #### L [id number] #### [facility] ([facility]) [address] [place] [address] CBC WITH AUTO DIFFERENTIALon 06-29-2024 Erythrocyte distribution width (RBC) [Ratio] 15.7 % High 11.5-15.0 [facility] Comment on above: Performed By: #### L [id number] #### [facility] ([facility]) [address] [place] [address] ERYTHROCYTE MEAN CORPUSCULAR HEMOGLOBIN CONCENTRATION (G/DL) BY AUTOMATED 30.6 g/dL Low 32.0-35.0 [facility] Comment on above: Performed By: #### L [id number] #### [facility] ([facility]) [address] [place] [address] Hematocrit (Bld) [Volume fraction] 30.7 % Low 39.0-55.0 [facility] Comment on above: Performed By: #### L [id number] #### [facility] ([facility]) [address] [place] [address] Hemoglobin (Bld) [Mass/Vol] 9.4 g/dL Low 13.0-17.0 [facility] Comment on above: Performed By: #### L [id number] #### [facility] ([facility]) [address] [place] [address] IMMATURE PLATELET FRACTION % 4.1 % Normal 0.8-6.3 [facility] Comment on above: Performed By: #### L [id number] #### [facility] ([facility]) [address] [place] [address] MCH (RBC) [Entitic mass] 30.6 pg Normal 27.0-33.0 [facility] Comment on above: Performed By: #### L [id number] #### [facility] ([facility]) [address] [place] [address] MCV (RBC) [Entitic vol] 100.0 fL High 82.0-98.0 [facility] Comment on above: Performed By: #### L [id number] #### [facility] ([facility]) [address] [place] [address] NRBC (PER 100 WBCS) BY AUTOMATED COUNT 0.0 % Normal 0 [facility] Comment on above: Performed By: #### L [id number] #### [facility] ([facility]) [address] [place] [address] PLATELETS (10*3/UL) IN BLOOD AUTOMATED COUNT 296 10*3/uL Normal 150-400 [facility] Comment on above: Performed By: #### L [id number] #### [facility] ([facility]) [address] [place] [address] RBC (Bld) [#/Vol] 3.07 10*6/uL Low 4.20-5.70 [facility] Comment on above: Performed By: #### L [id number] #### [facility] ([facility]) [address] [place] [address] WBC (Bld) [#/Vol] 7.78 10*3/uL Normal 4.00-10.60 [facility] Comment on above: Performed By: #### L [id number] #### [facility] ([facility]) [address] [place] [address] MAGNESIUMon 06-29-2024 Magnesium [Mass/Vol] 2.2 mg/dL Normal 1.9-2.7 [facility] Comment on above: Performed By: #### L [id number] #### [facility] ([facility]) [address] [place] [address] MANUAL DIFFERENTIALon 2023 BASOPHILS (10*3/UL) IN BLOOD BY CALCULATION 0.03 10*3/uL Normal 0.00-0.20 [facility] Comment on above: Performed By: #### L [id number] #### [facility] ([facility]) [address] [place] [address] BASOPHILS/100 LEUKOCYTES IN BLOOD BY AUTOMATED COUNT 0.4 % Normal 0.0-1.0 [facility] Comment on above: Performed By: #### L [id number] #### [facility] ([facility]) [address] [place] [address] EOSINOPHILS (10*3/UL) IN BLOOD BY CALCULATION 1.29 10*3/uL High 0.00-0.50 [facility] Comment on above: Performed By: #### L [id number] #### [facility] ([facility]) [address] [place] [address] EOSINOPHILS/100 LEUKOCYTES IN BLOOD BY AUTOMATED COUNT 16.6 % High 0.0-6.0 [facility] Comment on above: Performed By: #### L [id number] #### [facility] ([facility]) [address] [place] [address] IMMATURE GRANULOCYTES (10*3/UL) IN BLOOD BY CALCULATION 0.04 10*3/uL Normal 0.00-0.20 [facility] Comment on above: Performed By: #### L [id number] #### [facility] ([facility]) [address] [place] [address] IMMATURE GRANULOCYTES/100 LEUKOCYTES IN BLOOD BY AUTOMATED COUNT 0.5 % Normal 0.0-1.0 [facility] Comment on above: Performed By: #### L [id number] #### [facility] ([facility]) [address] [place] [address] LYMPHOCYTES (10*3/UL) IN BLOOD BY CALCULATION 1.13 10*3/uL Low 1.20-4.00 [facility] Comment on above: Performed By: #### L [id number] #### [facility] ([facility]) [address] [place] [address] LYMPHOCYTES/100 LEUKOCYTES IN BLOOD BY AUTOMATED COUNT 14.5 % Low 20.0-45.0 [facility] Comment on above: Performed By: #### L [id number] #### [facility] ([facility]) [address] [place] [address] MONOCYTES (10*3/UL) IN BLOOD BY CALCUATION 0.46 10*3/uL Normal 0.10-1.00 [facility] Comment on above: Performed By: #### L [id number] #### [facility] ([facility]) [address] [place] [address] MONOCYTES/100 LEUKOCYTES IN BLOOD BY AUTOMATED COUNT 5.9 % Normal 5.0-12.0 [facility] Comment on above: Performed By: #### L [id number] #### [facility] ([facility]) [address] [place] [address] NEUTROPHILS (10*3/UL) IN BLOOD BY CALCULATION 4.8 10*3/uL Normal 1.6-7.6 [facility] Comment on above: Performed By: #### L [id number] #### [facility] ([facility]) [address] [place] [address] NEUTROPHILS/100 LEUKOCYTES IN BLOOD BY AUTOMATED COUNT 62.1 % Normal 40.0-72.0 [facility] Comment on above: Performed By: #### L [id number] #### [facility] ([facility]) [address] [place] [address] CBCon 06-28-2024 Erythrocyte distribution width (RBC) [Ratio] 15.6 % High 11.5-15.0 [facility] Comment on above: Performed By: #### L [id number] #### [facility] ([facility]) [address] [place] [address] ERYTHROCYTE MEAN CORPUSCULAR HEMOGLOBIN CONCENTRATION (G/DL) BY AUTOMATED 31.3 g/dL Low 32.0-35.0 [facility] Comment on above: Performed By: #### L [id number] #### [facility] ([facility]) [address] [place] [address] Hematocrit (Bld) [Volume fraction] 26.8 % Low 39.0-55.0 [facility] Comment on above: Performed By: #### L [id number] #### [facility] ([facility]) [address] [place] [address] Hemoglobin (Bld) [Mass/Vol] 8.4 g/dL Low 13.0-17.0 [facility] Comment on above: Performed By: #### L [id number] #### [facility] ([facility]) [address] [place] [address] MCH (RBC) [Entitic mass] 30.5 pg Normal 27.0-33.0 [facility] Comment on above: Performed By: #### L [id number] #### [facility] ([facility]) [address] [place] [address] MCV (RBC) [Entitic vol] 97.5 fL Normal 82.0-98.0 [facility] Comment on above: Performed By: #### L [id number] #### [facility] ([facility]) [address] [place] [address] PLATELETS (10*3/UL) IN BLOOD AUTOMATED COUNT 330 10*3/uL Normal 150-400 [facility] Comment on above: Performed By: #### L [id number] #### [facility] ([facility]) [address] [place] [address] RBC (Bld) [#/Vol] 2.75 10*6/uL Low 4.20-5.70 [facility] Comment on above: Performed By: #### L [id number] #### [facility] ([facility]) [address] [place] [address] WBC (Bld) [#/Vol] 7.43 10*3/uL Normal 4.00-10.60 [facility] Comment on above: Performed By: #### L [id number] #### [facility] ([facility]) [address] [place] [address] COMPREHENSIVE METABOLIC PANE Meir 06-28-2024 Albumin [Mass/Vol] 2.7 g/dL Low 3.5-5.7 [facility] Comment on above: Performed By: #### L [id number] #### [facility] ([facility]) [address] [place] [address] ALP [Catalytic activity/Vol] 110 U/L High 34-104 [facility] Comment on above: Performed By: #### L [id number] #### [facility] ([facility]) [address] [place] [address] ALT [Catalytic activity/Vol] 13 U/L Normal 7-52 [facility] Comment on above: Performed By: #### L [id number] #### [facility] ([facility]) [address] [place] [address] Anion gap [Moles/Vol] 6 mmol/L Low 7-20 [facility] Comment on above: Performed By: #### L [id number] #### [facility] ([facility]) [address] [place] [address] AST [Catalytic activity/Vol] 13 U/L Normal 13-39 [facility] Comment on above: Performed By: #### L [id number] #### [facility] ([facility]) [address] [place] [address] Bilirubin [Mass/Vol] 0.3 mg/dL Normal 0.3-1.0 [facility] Comment on above: Performed By: #### L [id number] #### [facility] ([facility]) [address] [place] [address] Calcium [Mass/Vol] 8.6 mg/dL Normal 8.6-10.3 [facility] Comment on above: Performed By: #### L [id number] #### [facility] ([facility]) [address] [place] [address] Chloride [Moles/Vol] 103 mmol/L Normal 98-107 [facility] Comment on above: Performed By: #### L [id number] #### [facility] ([facility]) [address] [place] [address] CO2 [Moles/Vol] 36 mmol/L High 21-31 [facility] Comment on above: Performed By: #### L [id number] #### [facility] ([facility]) [address] [place] [address] Creatinine [Mass/Vol] 0.46 mg/dL Low 0.70-1.30 [facility] Comment on above: Performed By: #### L [id number] #### [facility] ([facility]) [address] [place] [address] GLOMERULAR FILTRATION RATE ML/MIN/1.73 SQ M.PREDICTED 103.8 mL/min/1.73m*2 Normal >60.0 [facility] Comment on above: Result Comment: The [facility]???s estimated glomerular filtration rate (eGFR) will no longer include consideration of race in its calculation. The National Kidney Foundation???s eGFR Task Force developed new recommendations for the estimation of the glomerular filtration rate in the [place] They recommend immediate implementation of the new equation refit without the race variable in all laboratories because the calculation does not include race. In addition to not including race in the calculation and reporting, it included diversity in its development, and has acceptable performance characteristics and potential consequences that do not disproportionately affect any one group of individuals. Performed By: #### L [id number] #### [facility] ([facility]) [address] [place] [address] Glucose [Mass/Vol] 113 mg/dL High 70-100 [facility] Comment on above: Performed By: #### L [id number] #### [facility] ([facility]) [address] [place] [address] Potassium [Moles/Vol] 3.1 mmol/L Low 3.5-5.1 [facility] Comment on above: Performed By: #### L [id number] #### [facility] ([facility]) [address] [place] [address] Protein [Mass/Vol] 5.5 g/dL Low 6.0-8.3 [facility] Comment on above: Performed By: #### L [id number] #### [facility] ([facility]) [address] [place] [address] Sodium [Moles/Vol] 142 mmol/L Normal 136-145 [facility] Comment on above: Performed By: #### L [id number] #### [facility] ([facility]) [address] [place] [address] Urea nitrogen [Mass/Vol] 18 mg/dL Normal 7-25 [facility] Comment on above: Performed By: #### L [id number] #### [facility] ([facility]) [address] [place] [address] UREA NITROGEN/CREATININE (MASS RATIO) IN SER/PLAS 39.1 Normal [facility] Comment on above: Performed By: #### L [id number] #### [facility] ([facility]) [address] [place] [address] CBC WITH AUTO DIFFERENTIALon 06-27-2024 Basophils (Bld) [#/Vol] 0.03 10*3/uL Normal 0.00-0.20 [facility] Comment on above: Performed By: #### L [id number] #### [facility] ([facility]) [address] [place] [address] Basophils/100 WBC (Bld) 0.5 % Normal 0.0-1.0 [facility] Comment on above: Performed By: #### L [id number] #### [facility] ([facility]) [address] [place] [address] Eosinophils (Bld) [#/Vol] 0.89 10*3/uL High 0.00-0.50 [facility] Comment on above: Performed By: #### L [id number] #### [facility] ([facility]) [address] [place] [address] Eosinophils/100 WBC (Bld) 13.5 % High 0.0-6.0 [facility] Comment on above: Performed By: #### L [id number] #### [facility] ([facility]) [address] [place] [address] Erythrocyte distribution width (RBC) [Ratio] 15.5 % High 11.5-15.0 [facility] Comment on above: Performed By: #### L [id number] #### [facility] ([facility]) [address] [place] [address] ERYTHROCYTE MEAN CORPUSCULAR HEMOGLOBIN CONCENTRATION (G/DL) BY AUTOMATED 30.9 g/dL Low 32.0-35.0 [facility] Comment on above: Performed By: #### L [id number] #### [facility] ([facility]) [address] [place] [address] Hematocrit (Bld) [Volume fraction] 27.8 % Low 39.0-55.0 [facility] Comment on above: Performed By: #### L [id number] #### [facility] ([facility]) [address] [place] [address] Hemoglobin (Bld) [Mass/Vol] 8.6 g/dL Low 13.0-17.0 [facility] Comment on above: Performed By: #### L [id number] #### [facility] ([facility]) [address] [place] [address] Immature granulocytes (Bld) [#/Vol] 0.02 10*3/uL Normal 0.00-0.20 [facility] Comment on above: Performed By: #### L [id number] #### [facility] ([facility]) [address] [place] [address] Immature granulocytes/100 WBC (Bld) 0.3 % Normal 0.0-1.0 [facility] Comment on above: Performed By: #### L [id number] #### [facility] ([facility]) [address] [place] [address] Lymphocytes (Bld) [#/Vol] 0.80 10*3/uL Low 1.20-4.00 [facility] Comment on above: Performed By: #### L [id number] #### [facility] ([facility]) [address] [place] [address] Lymphocytes/100 WBC (Bld) 12.1 % Low 20.0-45.0 [facility] Comment on above: Performed By: #### L [id number] #### [facility] ([facility]) [address] [place] [address] MCH (RBC) [Entitic mass] 30.6 pg Normal 27.0-33.0 [facility] Comment on above: Performed By: #### L [id number] #### [facility] ([facility]) [address] [place] [address] MCV (RBC) [Entitic vol] 98.9 fL High 82.0-98.0 [facility] Comment on above: Performed By: #### L [id number] #### [facility] ([facility]) [address] [place] [address] Monocytes (Bld) [#/Vol] 0.43 10*3/uL Normal 0.10-1.00 [facility] Comment on above: Performed By: #### L [id number] #### [facility] ([facility]) [address] [place] [address] Monocytes/100 WBC (Bld) 6.5 % Normal 5.0-12.0 [facility] Comment on above: Performed By: #### L [id number] #### [facility] ([facility]) [address] [place] [address] Neutrophils (Bld) [#/Vol] 4.43 10*3/uL Normal 1.60-7.60 [facility] Comment on above: Performed By: #### L [id number] #### [facility] ([facility]) [address] [place] [address] Neutrophils/100 WBC (Bld) 67.1 % Normal 40.0-72.0 [facility] Comment on above: Performed By: #### L [id number] #### [facility] ([facility]) [address] [place] [address] NRBC (PER 100 WBCS) BY AUTOMATED COUNT 0.0 % Normal 0 [facility] Comment on above: Performed By: #### L [id number] #### [facility] ([facility]) [address] [place] [address] PLATELETS (10*3/UL) IN BLOOD AUTOMATED COUNT 338 10*3/uL Normal 150-400 [facility] Comment on above: Performed By: #### L [id number] #### [facility] ([facility]) [address] [place] [address] RBC (Bld) [#/Vol] 2.81 10*6/uL Low 4.20-5.70 [facility] Comment on above: Performed By: #### L [id number] #### [facility] ([facility]) [address] [place] [address] WBC (Bld) [#/Vol] 6.60 10*3/uL Normal 4.00-10.60 [facility] Comment on above: Performed By: #### L [id number] #### [facility] ([facility]) [address] [place] [address] COMPREHENSIVE METABOLIC PANE Meir 06-27-2024 Albumin [Mass/Vol] 2.9 g/dL Low 3.5-5.7 [facility] Comment on above: Performed By: #### L [id number] #### [facility] ([facility]) [address] [place] [address] ALP [Catalytic activity/Vol] 119 U/L High 34-104 [facility] Comment on above: Performed By: #### L [id number] #### [facility] ([facility]) [address] [place] [address] ALT [Catalytic activity/Vol] 12 U/L Normal 7-52 [facility] Comment on above: Performed By: #### L [id number] #### [facility] ([facility]) [address] [place] [id number] Anion gap [Moles/Vol] 10 mmol/L Normal 7-20 [facility] Comment on above: Performed By: #### L [id number] #### [facility] ([facility]) [address] [place] [address] AST [Catalytic activity/Vol] 15 U/L Normal 13-39 [facility] Comment on above: Performed By: #### L [id number] #### [facility] [facility] ([facility]) [address] [place] [address] Bilirubin [Mass/Vol] 0.4 mg/dL Normal 0.3-1.0 [facility] Comment on above: Performed By: #### L [id number] #### [facility] ([facility]) [address] [place] [address] Calcium [Mass/Vol] 8.7 mg/dL Normal 8.6-10.3 [facility] Comment on above: Performed By: #### L [id number] #### [facility] ([facility]) [address] [place] [address] Chloride [Moles/Vol] 103 mmol/L Normal 98-107 [facility] Comment on above: Performed By: #### L [id number] #### [facility] ([facility]) [address] [place] [address] CO2 [Moles/Vol] 31 mmol/L Normal 21-31 [facility] Comment on above: Performed By: #### L [id number] #### [facility] ([facility]) [address] [place] [address] Creatinine [Mass/Vol] 0.47 mg/dL Low 0.70-1.30 [facility] Comment on above: Performed By: #### L [id number] #### [facility] ([facility]) [address] [place] [address] GLOMERULAR FILTRATION RATE ML/MIN/1.73 SQ M.PREDICTED 103.1 mL/min/1.73m*2 Normal >60.0 [facility] Comment on above: Result Comment: The [facility]???s estimated glomerular filtration rate (eGFR) will no longer include consideration of race in its calculation. The National Kidney Foundation???s eGFR Task Force developed new recommendations for the estimation of the glomerular filtration rate in the [place] They recommend immediate implementation of the new equation refit without the race variable in all laboratories because the calculation does not include race. In addition to not including race in the calculation and reporting, it included diversity in its development, and has acceptable performance characteristics and potential consequences that do not disproportionately affect any one group of individuals. Performed By: #### L [id number] #### [facility] ([facility]) [address] [place] [address] Glucose [Mass/Vol] 114 mg/dL High 70-100 [facility] Comment on above: Performed By: #### L [id number] #### [facility] ([facility]) [address] [place] [address] Potassium [Moles/Vol] 3.3 mmol/L Low 3.5-5.1 [facility] Comment on above: Performed By: #### L [id number] #### [facility] ([facility]) [address] [place] [address] Protein [Mass/Vol] 5.9 g/dL Low 6.0-8.3 [facility] Comment on above: Performed By: #### L [id number] #### [facility] ([facility]) [address] [place] [address] Sodium [Moles/Vol] 141 mmol/L Normal 136-145 [facility] Comment on above: Performed By: #### L [id number] #### [facility] ([facility]) [address] [place] [address] Urea nitrogen [Mass/Vol] 13 mg/dL Normal 7-25 [facility] Comment on above: Performed By: #### L [id number] #### [facility] ([facility]) [address] [place] [address] UREA NITROGEN/CREATININE (MASS RATIO) IN SER/PLAS 27.7 Normal [facility] Comment on above: Performed By: #### L [id number] #### [facility] ([facility]) [address] [place] [address] MAGNESIUMon 06-27-2024 Magnesium [Mass/Vol] 1.9 mg/dL Normal 1.9-2.7 [facility] Comment on above: Performed By: #### L [id number] #### [facility] ([facility]) [address] [place] [address] CBC WITH AUTO DIFFERENTIALon 06-25-2024 Basophils (Bld) [#/Vol] 0.02 10*3/uL Normal 0.00-0.20 [facility] Comment on above: Performed By: #### L [id number] #### [facility] ([facility]) [address] [place] [address] Basophils/100 WBC (Bld) 0.3 % Normal 0.0-1.0 [facility] Comment on above: Performed By: #### L [id number] #### [facility] ([facility]) [address] [place] [address] Eosinophils (Bld) [#/Vol] 0.81 10*3/uL High 0.00-0.50 [facility] Comment on above: Performed By: #### L [id number] #### [facility] ([facility]) [address] [place] [address] Eosinophils/100 WBC (Bld) 13.9 % High 0.0-6.0 [facility] Comment on above: Performed By: #### L [id number] #### [facility] ([facility]) [address] [place] [address] Erythrocyte distribution width (RBC) [Ratio] 15.5 % High 11.5-15.0 [facility] Comment on above: Performed By: #### L [id number] #### [facility] ([facility]) [address] [place] [address] ERYTHROCYTE MEAN CORPUSCULAR HEMOGLOBIN CONCENTRATION (G/DL) BY AUTOMATED 31.4 g/dL Low 32.0-35.0 [facility] Comment on above: Performed By: #### L [id number] #### [facility] ([facility]) [address] [place] [place] [address] Hematocrit (Bld) [Volume fraction] 25.5 % Low 39.0-55.0 [facility] Comment on above: Performed By: #### L [id number] #### [facility] ([facility]) [address] [place] [place] [address] Hemoglobin (Bld) [Mass/Vol] 8.0 g/dL Low 13.0-17.0 [facility] Comment on above: Performed By: #### L [id number] #### [facility] ([facility]) [address] [place] [address] Immature granulocytes (Bld) [#/Vol] 0.02 10*3/uL Normal 0.00-0.20 [facility] Comment on above: Performed By: #### L [id number] #### [facility] ([facility]) [address] [place] [address] Immature granulocytes/100 WBC (Bld) 0.3 % Normal 0.0-1.0 [facility] Comment on above: Performed By: #### L [id number] #### [facility] ([facility]) [address] [place] [address] Lymphocytes (Bld) [#/Vol] 1.05 10*3/uL Low 1.20-4.00 [facility] Comment on above: Performed By: #### L [id number] #### [facility] ([facility]) [address] [place] [address] Lymphocytes/100 WBC (Bld) 18.0 % Low 20.0-45.0 [facility] Comment on above: Performed By: #### L [id number] #### [facility] ([facility]) [address] [place] [place] [address] MCH (RBC) [Entitic mass] 30.3 pg Normal 27.0-33.0 [facility] Comment on above: Performed By: #### L [id number] #### [facility] ([facility]) [address] [place] [address] MCV (RBC) [Entitic vol] 96.6 fL Normal 82.0-98.0 [facility] Comment on above: Performed By: #### L [id number] #### [facility] ([facility]) [address] [place] [address] Monocytes (Bld) [#/Vol] 0.50 10*3/uL Normal 0.10-1.00 [facility] Comment on above: Performed By: #### L [id number] #### [facility] ([facility]) [address] [place] [address] Monocytes/100 WBC (Bld) 8.6 % Normal 5.0-12.0 [facility] Comment on above: Performed By: #### L [id number] #### [facility] ([facility]) [address] [place] [address] Neutrophils (Bld) [#/Vol] 3.43 10*3/uL Normal 1.60-7.60 [facility] Comment on above: Performed By: #### L [id number] #### [facility] ([facility]) [address] [place] [address] Neutrophils/100 WBC (Bld) 58.9 % Normal 40.0-72.0 [facility] Comment on above: Performed By: #### L [id number] #### [facility] ([facility]) [address] [place] [address] NRBC (PER 100 WBCS) BY AUTOMATED COUNT 0.0 % Normal 0 [facility] Comment on above: Performed By: #### L [id number] #### [facility] ([facility]) [address] [place] [address] PLATELETS (10*3/UL) IN BLOOD AUTOMATED COUNT 286 10*3/uL Normal 150-400 [facility] Comment on above: Performed By: #### L [id number] #### [facility] ([facility]) [address] [place] [address] RBC (Bld) [#/Vol] 2.64 10*6/uL Low 4.20-5.70 [facility] Comment on above: Performed By: #### L [id number] #### [facility] ([facility]) [address] [place] [address] WBC (Bld) [#/Vol] 5.83 10*3/uL Normal 4.00-10.60 [facility] Comment on above: Performed By: #### L [id number] #### [facility] ([facility]) [address] [place] [address] COMPREHENSIVE METABOLIC PANE Meir 06-25-2024 Anion gap [Moles/Vol] 8 mmol/L Normal 7-20 [facility] Comment on above: Performed By: #### L [id number] #### [facility] ([facility]) [address] [place] [address] Calcium [Mass/Vol] 8.4 mg/dL Low 8.6-10.3 [facility] Comment on above: Performed By: #### L [id number] #### [facility] ([facility]) [address] [place] [address] Chloride [Moles/Vol] 101 mmol/L Normal 98-107 [facility] Comment on above: Performed By: #### L [id number] #### [facility] ([facility]) [address] [place] [address] CO2 [Moles/Vol] 29 mmol/L Normal 21-31 [facility] Comment on above: Performed By: #### L [id number] #### [facility] ([facility]) [address] [place] [address] Creatinine [Mass/Vol] 0.50 mg/dL Low 0.70-1.30 [facility] Comment on above: Performed By: #### L [id number] #### [facility] ([facility]) [address] [place] [address] GLOMERULAR FILTRATION RATE ML/MIN/1.73 SQ M.PREDICTED 101.2 mL/min/1.73m*2 Normal >60.0 [facility] Comment on above: Result Comment: The [facility]???s estimated glomerular filtration rate (eGFR) will no longer include consideration of race in its calculation. The National Kidney Foundation???s eGFR Task Force developed new recommendations for the estimation of the glomerular filtration rate in the [place] They recommend immediate implementation of the new equation refit without the race variable in all laboratories because the calculation does not include race. In addition to not including race in the calculation and reporting, it included diversity in its development, and has acceptable performance characteristics and potential consequences that do not disproportionately affect any one group of individuals. Performed By: #### L [id number] #### [facility] ([facility]) [address] [place] [address] Glucose [Mass/Vol] 91 mg/dL Normal 70-100 [facility] Comment on above: Performed By: #### L [id number] #### [facility] ([facility]) [address] [facility] [place] [address] Potassium [Moles/Vol] 3.5 mmol/L Normal 3.5-5.1 [facility] Comment on above: Performed By: #### L [id number] #### [facility] ([facility]) [address] [place] [address] Sodium [Moles/Vol] 134 mmol/L Low 136-145 [facility] Comment on above: Performed By: #### L [id number] #### [facility] ([facility]) [address] [place] [address] Urea nitrogen [Mass/Vol] 6 mg/dL Low 7-25 [facility] Comment on above: Performed By: #### L [id number] #### [facility] ([facility]) [address] [place] [address] UREA NITROGEN/CREATININE (MASS RATIO) IN SER/PLAS 12.0 Normal [facility] Comment on above: Performed By: #### L [id number] #### [facility] ([facility]) [address] [place] [address] HEPATIC FUNCTION PANELon Albumin [Mass/Vol] 2.7 g/dL Low 3.5-5.7 [facility] Comment on above: Performed By: #### L [id number] #### [facility] ([facility]) [address] [place] [address] Performed By: #### L [id number] #### [facility] ([facility]) [address] [place] [address] ALP [Catalytic activity/Vol] 106 U/L High 34-104 [facility] Comment on above: Performed By: #### L [id number] #### [facility] ([facility]) [address] [place] [address] Performed By: #### L [id number] #### [facility] ([facility]) [address] [place] [address] ALT [Catalytic activity/Vol] 15 U/L Normal 7-52 [facility] Comment on above: Performed By: #### L [id number] #### [facility] ([facility]) [address] [place] [address] Performed By: #### L [id number] #### [facility] ([facility]) [address] [place] [address] AST [Catalytic activity/Vol] 16 U/L Normal 13-39 [facility] Comment on above: Performed By: #### L [id number] #### [facility] ([facility]) [address] [place] [address] Performed By: #### L [id number] #### [facility] ([facility]) [address] [place] [address] Bilirubin [Mass/Vol] 0.5 mg/dL Normal 0.3-1.0 [facility] Comment on above: Performed By: #### L [id number] #### [facility] ([facility]) [address] [place] [address] Performed By: #### L [id number] #### [facility] ([facility]) [address] [place] [address] Magnesium [Mass/Vol] 0.1 mg/dL Normal 0-0.2 [facility] Comment on above: Performed By: #### L [id number] #### [facility] ([facility]) [address] [place] [address] Protein [Mass/Vol] 5.7 g/dL Low 6.0-8.3 [facility] Comment on above: Performed By: #### L [id number] #### [facility] ([facility]) [address] [place] [address] Performed By: #### L [id number] #### [facility] ([facility]) [address] [place] [address] MAGNESIUMon 06-25-2024 Magnesium [Mass/Vol] 1.8 mg/dL Low 1.9-2.7 [facility] Comment on above: Performed By: #### L [id number] #### [facility] ([facility]) [address] [place] [address] PHOSPHORUSon 06-25-2024 Magnesium [Mass/Vol] 3.2 mg/dL Normal 2.5-5.0 [facility] Comment on above: Performed By: #### L [id number] #### [facility] ([facility]) [address] [place] [address] TRIGLYCERIDESon 06-25-2024 FASTING? Unknown Normal [facility] Comment on above: Performed By: #### L [id number] #### [facility] ([facility]) [address] [place] [address] Magnesium [Mass/Vol] 100 mg/dL Normal 40-149 [facility] Comment on above: Result Comment: TRIG LYCERIDE REFERENCE RANGE: 20 YEARS AND OLDER CARDIOVASCULAR RISK LESS THAN 150 mg/dL LOW RISK 150 TO 199 mg/dL BORDERLINE RISK 200 mg/dL AND GREATER HIGH RISK Performed By: #### L [id number] #### [facility] ([facility]) [address] [place] [address] BASIC METABOLIC PANELon - Anion gap [Moles/Vol] 8 mmol/L Normal 7-20 [facility] Comment on above: Performed By: #### L [id number] #### [facility] ([facility]) [address] [place] [address] Calcium [Mass/Vol] 8.3 mg/dL Low 8.6-10.3 [facility] Comment on above: Performed By: #### L [id number] #### [facility] ([facility]) [address] [place] [address] Chloride [Moles/Vol] 102 mmol/L Normal 98-107 [facility] Comment on above: Performed By: #### L [id number] #### [facility] ([facility]) [address] [place] [address] CO2 [Moles/Vol] 30 mmol/L Normal 21-31 [facility] Comment on above: Performed By: #### L [id number] #### [facility] ([facility]) [address] [place] [address] Creatinine [Mass/Vol] 0.54 mg/dL Low 0.70-1.30 [facility] Comment on above: Performed By: #### L [id number] #### [facility] ([facility]) [address] [place] [address] GLOMERULAR FILTRATION RATE ML/MIN/1.73 SQ M.PREDICTED 98.9 mL/min/1.73m*2 Normal >60.0 [facility] Comment on above: Result Comment: [facility]???s estimated glomerular filtration rate (eGFR) will no longer include consideration of race in its calculation. The National Kidney Foundation???s eGFR Task Force developed new recommendations for the estimation of the glomerular filtration rate in the [place] They recommend immediate implementation of the new equation refit without the race variable in all laboratories because the calculation does not include race. In addition to not including race in the calculation and reporting, it included diversity in its development, and has acceptable performance characteristics and potential consequences that do not disproportionately affect any one group of individuals. Performed By: #### L [id number] #### [facility] ([facility]) [address] [place] [address] Glucose [Mass/Vol] 92 mg/dL Normal 70-100 [facility] Comment on above: Performed By: #### L [id number] #### [facility] ([facility]) [address] [place] [address] Potassium [Moles/Vol] 3.6 mmol/L Normal 3.5-5.1 [facility] Comment on above: Performed By: #### L [id number] #### [facility] ([facility]) [address] [place] [address] Sodium [Moles/Vol] 136 mmol/L Normal 136-145 [facility] Comment on above: Performed By: #### L [id number] #### [facility] ([facility]) [address] [place] [address] Urea nitrogen [Mass/Vol] 7 mg/dL Normal 7-25 [facility] Comment on above: Performed By: #### L [id number] #### [facility] ([facility]) [address] [place] [address] UREA NITROGEN/CREATININE (MASS RATIO) IN SER/PLAS 13.0 Normal [facility] Comment on above: Performed By: #### L [id number] #### [facility] ([facility]) [address] [place] [address] CBC WITH AUTO DIFFERENTIALon 06-24-2024 Basophils (Bld) [#/Vol] 0.03 10*3/uL Normal 0.00-0.20 [facility] Comment on above: Performed By: #### L [id number] #### [facility] ([facility]) [address] [place] [address] Basophils/100 WBC (Bld) 0.5 % Normal 0.0-1.0 [facility] Comment on above: Performed By: #### L [id number] #### [facility] ([facility]) [address] [place] [address] Eosinophils (Bld) [#/Vol] 0.70 10*3/uL High 0.00-0.50 [facility] Comment on above: Performed By: #### L [id number] #### [facility] ([facility]) [address] [place] [address] Eosinophils/100 WBC (Bld) 11.8 % High 0.0-6.0 [facility] Comment on above: Performed By: #### L [id number] #### [facility] ([facility]) [address] [place] [address] Erythrocyte distribution width (RBC) [Ratio] 15.3 % High 11.5-15.0 [facility] Comment on above: Performed By: #### L [id number] #### [facility] ([facility]) [address] [place] [address] ERYTHROCYTE MEAN CORPUSCULAR HEMOGLOBIN CONCENTRATION (G/DL) BY AUTOMATED 31.9 g/dL Low 32.0-35.0 [facility] Comment on above: Performed By: #### L [id number] #### [facility] ([facility]) [address] [place] [address] Hematocrit (Bld) [Volume fraction] 26.3 % Low 39.0-55.0 [facility] Comment on above: Performed By: #### L [id number] #### [facility] ([facility]) [address] [place] [address] Hemoglobin (Bld) [Mass/Vol] 8.4 g/dL Low 13.0-17.0 [facility] Comment on above: Performed By: #### L [id number] #### [facility] ([facility]) [address] [place] [address] Immature granulocytes (Bld) [#/Vol] 0.02 10*3/uL Normal 0.00-0.20 [facility] Comment on above: Performed By: #### L [id number] #### [facility] ([facility]) [address] [place] [address] Immature granulocytes/100 WBC (Bld) 0.3 % Normal 0.0-1.0 [facility] Comment on above: Performed By: #### L [id number] #### [facility] ([facility]) [address] [place] [address] Lymphocytes (Bld) [#/Vol] 0.92 10*3/uL Low 1.20-4.00 [facility] Comment on above: Performed By: #### L [id number] #### [facility] ([facility]) [address] [place] [address] Lymphocytes/100 WBC (Bld) 15.5 % Low 20.0-45.0 [facility] Comment on above: Performed By: #### L [id number] #### [facility] ([facility]) [address] [place] [address] MCH (RBC) [Entitic mass] 30.3 pg Normal 27.0-33.0 [facility] Comment on above: Performed By: #### L [id number] #### [facility] ([facility]) [address] [place] [address] MCV (RBC) [Entitic vol] 94.9 fL Normal 82.0-98.0 [facility] Comment on above: Performed By: #### L [id number] #### [facility] ([facility]) [address] [place] [address] Monocytes (Bld) [#/Vol] 0.33 10*3/uL Normal 0.10-1.00 [facility] Comment on above: Performed By: #### L [id number] #### [facility] ([facility]) [address] [place] [address] Monocytes/100 WBC (Bld) 5.5 % Normal 5.0-12.0 [facility] Comment on above: Performed By: #### L [id number] #### [facility] ([facility]) [address] [place] [address] Neutrophils (Bld) [#/Vol] 3.95 10*3/uL Normal 1.60-7.60 [facility] Comment on above: Performed By: #### L [id number] #### [facility] ([facility]) [address] [place] [address] Neutrophils/100 WBC (Bld) 66.4 % Normal 40.0-72.0 [facility] Comment on above: Performed By: #### L [id number] #### [facility] ([facility]) [address] [place] [address] NRBC (PER 100 WBCS) BY AUTOMATED COUNT 0.0 % Normal 0 [facility] Comment on above: Performed By: #### L [id number] #### [facility] ([facility]) [address] [place] [address] PLATELETS (10*3/UL) IN BLOOD AUTOMATED COUNT 309 10*3/uL Normal 150-400 [facility] Comment on above: Performed By: #### L [id number] #### [facility] ([facility]) [address] [place] [address] RBC (Bld) [#/Vol] 2.77 10*6/uL Low 4.20-5.70 [facility] Comment on above: Performed By: #### L [id number] #### [facility] ([facility]) [address] [place] [address] WBC (Bld) [#/Vol] 5.95 10*3/uL Normal 4.00-10.60 [facility] Comment on above: Performed By: #### L [id number] #### [facility] ([facility]) [address] [place] [address] MAGNESIUMon 06-24-2024 Magnesium [Mass/Vol] 2.1 mg/dL Normal 1.9-2.7 [facility] Comment on above: Performed By: #### L [id number] #### [facility] ([facility]) [address] [place] [address] CBC WITH AUTO DIFFERENTIALon 06-23-2024 Basophils (Bld) [#/Vol] 0.02 10*3/uL Normal 0.00-0.20 [facility] Comment on above: Performed By: #### L [id number] #### [facility] ([facility]) [address] [place] [address] Basophils/100 WBC (Bld) 0.3 % Normal 0.0-1.0 [facility] Comment on above: Performed By: #### L [id number] #### [facility] ([facility]) [address] [place] [address] Eosinophils (Bld) [#/Vol] 0.73 10*3/uL High 0.00-0.50 [facility] Comment on above: Performed By: #### L [id number] #### [facility] ([facility]) [address] [place] [address] Eosinophils/100 WBC (Bld) 12.1 % High 0.0-6.0 [facility] Comment on above: Performed By: #### L [id number] #### [facility] ([facility]) [address] [place] [address] Erythrocyte distribution width (RBC) [Ratio] 15.4 % High 11.5-15.0 [facility] Comment on above: Performed By: #### L [id number] #### [facility] ([facility]) [address] [place] [address] ERYTHROCYTE MEAN CORPUSCULAR HEMOGLOBIN CONCENTRATION (G/DL) BY AUTOMATED 32.5 g/dL Normal 32.0-35.0 [facility] Comment on above: Performed By: #### L [id number] #### [facility] ([facility]) [address] [place] [address] Hematocrit (Bld) [Volume fraction] 24.9 % Low 39.0-55.0 [facility] Comment on above: Performed By: #### L [id number] #### [facility] ([facility]) [address] [place] [address] Hemoglobin (Bld) [Mass/Vol] 8.1 g/dL Low 13.0-17.0 [facility] Comment on above: Performed By: #### L [id number] #### [facility] ([facility]) [address] [place] [address] Immature granulocytes (Bld) [#/Vol] 0.03 10*3/uL Normal 0.00-0.20 [facility] Comment on above: Performed By: #### L [id number] #### [facility] ([facility]) [address] [place] [address] Immature granulocytes/100 WBC (Bld) 0.5 % Normal 0.0-1.0 [facility] Comment on above: Performed By: #### L [id number] #### [facility] ([facility]) [address] [place] [address] Lymphocytes (Bld) [#/Vol] 0.86 10*3/uL Low 1.20-4.00 [facility] Comment on above: Performed By: #### L [id number] #### [facility] ([facility]) [address] [place] [address] Lymphocytes/100 WBC (Bld) 14.3 % Low 20.0-45.0 [facility] Comment on above: Performed By: #### L [id number] #### [facility] ([facility]) [address] [place] [address] MCH (RBC) [Entitic mass] 30.5 pg Normal 27.0-33.0 [facility] Comment on above: Performed By: #### L [id number] #### [facility] ([facility]) [address] [place] [address] MCV (RBC) [Entitic vol] 93.6 fL Normal 82.0-98.0 [facility] Comment on above: Performed By: #### L [id number] #### [facility] ([facility]) [address] [place] [address] Monocytes (Bld) [#/Vol] 0.40 10*3/uL Normal 0.10-1.00 [facility] Comment on above: Performed By: #### L [id number] #### [facility] ([facility]) [address] [place] [address] Monocytes/100 WBC (Bld) 6.7 % Normal 5.0-12.0 [facility] Comment on above: Performed By: #### L [id number] #### [facility] ([facility]) [address] [place] [address] Neutrophils (Bld) [#/Vol] 3.97 10*3/uL Normal 1.60-7.60 [facility] Comment on above: Performed By: #### L [id number] #### [facility] ([facility]) [address] [address] Neutrophils/100 WBC (Bld) 66.1 % Normal 40.0-72.0 [facility] Comment on above: Performed By: #### L [id number] #### [facility] ([facility]) [address] [place] [address] NRBC (PER 100 WBCS) BY AUTOMATED COUNT 0.0 % Normal 0 [facility] Comment on above: Performed By: #### L [id number] #### [facility] ([facility]) [address] [place] [address] PLATELETS (10*3/UL) IN BLOOD AUTOMATED COUNT 253 10*3/uL Normal 150-400 [facility] Comment on above: Performed By: #### L [id number] #### [facility] ([facility]) [address] [place] [address] RBC (Bld) [#/Vol] 2.66 10*6/uL Low 4.20-5.70 [facility] Comment on above: Performed By: #### L [id number] #### [facility] ([facility]) [address] [place] [address] WBC (Bld) [#/Vol] 6.01 10*3/uL Normal 4.00-10.60 [facility] Comment on above: Performed By: #### L [id number] #### [facility] ([facility]) [address] [place] [address] COMPREHENSIVE METABOLIC PANE Meir 06-23-2024 Albumin [Mass/Vol] 2.7 g/dL Low 3.5-5.7 [facility] Comment on above: Performed By: #### L [id number] #### [facility] ([facility]) [address] [place] [address] ALP [Catalytic activity/Vol] 106 U/L High 34-104 [facility] Comment on above: Performed By: #### L [id number] #### [facility] ([facility]) [address] [place] [address] ALT [Catalytic activity/Vol] 16 U/L Normal 7-52 [facility] Comment on above: Performed By: #### L [id number] #### [facility] ([facility]) [address] [place] [address] Anion gap [Moles/Vol] 8 mmol/L Normal 7-20 [facility] Comment on above: Performed By: #### L [id number] #### [facility] ([facility]) [address] [place] [address] AST [Catalytic activity/Vol] 12 U/L Low 13-39 [facility] Comment on above: Performed By: #### L [id number] #### [facility] ([facility]) [address] [place] [address] Bilirubin [Mass/Vol] 0.4 mg/dL Normal 0.3-1.0 [facility] Comment on above: Performed By: #### L [id number] #### [facility] ([facility]) [address] [place] [address] Calcium [Mass/Vol] 8.3 mg/dL Low 8.6-10.3 [facility] Comment on above: Performed By: #### L [id number] #### [facility] ([facility]) [address] [place] [address] Chloride [Moles/Vol] 101 mmol/L Normal 98-107 [facility] Comment on above: Performed By: #### L [id number] #### [facility] (BE[facility]) [address] [place] [address] CO2 [Moles/Vol] 28 mmol/L Normal 21-31 [facility] Comment on above: Performed By: #### L [id number] #### [facility] ([facility]) [address] [place] [address] Creatinine [Mass/Vol] 0.55 mg/dL Low 0.70-1.30 [facility] Comment on above: Performed By: #### L [id number] #### [facility] ([facility]) [address] [place] [address] GLOMERULAR FILTRATION RATE ML/MIN/1.73 SQ M.PREDICTED 98.3 mL/min/1.73m*2 Normal >60.0 [facility] Comment on above: Result Comment: The [facility]???s estimated glomerular filtration rate (eGFR) will no longer include consideration of race in its calculation. The National Kidney Foundation???s eGFR Task Force developed new recommendations for the estimation of the glomerular filtration rate in the [place] They recommend immediate implementation of the new equation refit without the race variable in all laboratories because the calculation does not include race. In addition to not including race in the calculation and reporting, it included diversity in its development, and has acceptable performance characteristics and potential consequences that do not disproportionately affect any one group of individuals. Performed By: #### L [id number] #### [facility] ([facility]) [address] [place] [address] Glucose [Mass/Vol] 102 mg/dL High 70-100 [facility] Comment on above: Performed By: #### L [id number] #### [facility] ([facility]) [address] [place] [place] [address] Potassium [Moles/Vol] 3.4 mmol/L Low 3.5-5.1 [facility] Comment on above: Performed By: #### L [id number] #### [facility] ([facility]) [address] [place] [address] Protein [Mass/Vol] 5.5 g/dL Low 6.0-8.3 [facility] Comment on above: Performed By: #### L [id number] #### [facility] ([facility]) [address] [place] [address] Sodium [Moles/Vol] 134 mmol/L Low 136-145 [facility] Comment on above: Performed By: #### L [id number] #### [facility] ([facility]) [address] [place] [address] Urea nitrogen [Mass/Vol] 10 mg/dL Normal 7-25 [facility] Comment on above: Performed By: #### L [id number] #### [facility] ([facility]) [address] [place] [address] UREA NITROGEN/CREATININE (MASS RATIO) IN SER/PLAS 18.2 Normal [facility] Comment on above: Performed By: #### L [id number] #### [facility] ([facility]) [address] [place] [address] HEPATIC FUNCTION PANELon Magnesium [Mass/Vol] 0.2 mg/dL Normal 0-0.2 [facility] Comment on above: Performed By: #### L [id number] #### [facility] ([facility]) [address] [place] [address] MAGNESIUMon 06-23-2024 Magnesium [Mass/Vol] 1.6 mg/dL Low 1.9-2.7 [facility] Comment on above: Performed By: #### L [id number] #### [facility] ([facility]) [address] [place] [address] BASIC METABOLIC PANELon 06-02 Anion gap [Moles/Vol] 9 mmol/L Normal 7-20 [facility] Comment on above: Performed By: #### L [id number] #### [facility] ([facility]) [address] [place] [address] Calcium [Mass/Vol] 8.7 mg/dL Normal 8.6-10.3 [facility] Comment on above: Performed By: #### L [id number] #### [facility] ([facility]) [address] [place] [address] Chloride [Moles/Vol] 100 mmol/L Normal 98-107 [facility] Comment on above: Performed By: #### L [id number] #### [facility] ([facility]) [address] [place] [address] CO2 [Moles/Vol] 29 mmol/L Normal 21-31 [facility] Comment on above: Performed By: #### L [id number] #### [facility] ([facility]) [address] [place] [address] Creatinine [Mass/Vol] 0.52 mg/dL Low 0.70-1.30 [facility] Comment on above: Performed By: #### L [id number] #### [facility] ([facility]) [address] [place] [address] GLOMERULAR FILTRATION RATE ML/MIN/1.73 SQ M.PREDICTED 100.0 mL/min/1.73m*2 Normal >60.0 [facility] Comment on above: Result Comment: The [facility]???s estimated glomerular filtration rate (eGFR) will no longer include consideration of race in its calculation. The National Kidney Foundation???s eGFR Task Force developed new recommendations for the estimation of the glomerular filtration rate in the [place] They recommend immediate implementation of the new equation refit without the race variable in all laboratories because the calculation does not include race. In addition to not including race in the calculation and reporting, it included diversity in its development, and has acceptable performance characteristics and potential consequences that do not disproportionately affect any one group of individuals. Performed By: #### L [id number] #### [facility] ([facility]) [address] [place] [address] Glucose [Mass/Vol] 95 mg/dL Normal 70-100 [facility] Comment on above: Performed By: #### L [id number] #### [facility] ([facility]) [address] [place] [address] Potassium [Moles/Vol] 3.6 mmol/L Normal 3.5-5.1 [facility] Comment on above: Performed By: #### L [id number] #### [facility] ([facility]) [address] [place] [address] Sodium [Moles/Vol] 134 mmol/L Low 136-145 [facility] Comment on above: Performed By: #### L [id number] #### [facility] ([facility]) [address] [place] [address] Urea nitrogen [Mass/Vol] 21 mg/dL Normal 7-25 [facility] Comment on above: Performed By: #### L [id number] #### [facility] ([facility]) [address] [place] [address] UREA NITROGEN/CREATININE (MASS RATIO) IN SER/PLAS 40.4 Normal [facility] Comment on above: Performed By: #### L [id number] #### [facility] ([facility]) [address] [place] [address] CBCon 06-21-2024 Erythrocyte distribution width (RBC) [Ratio] 15.5 % High 11.5-15.0 [facility] Comment on above: Performed By: #### L [id number] #### [facility] ([facility]) [address] [place] [address] ERYTHROCYTE MEAN CORPUSCULAR HEMOGLOBIN CONCENTRATION (G/DL) BY AUTOMATED 31.8 g/dL Low 32.0-35.0 [facility] Comment on above: Performed By: #### L [id number] #### [facility] ([facility]) [address] [place] [address] Hematocrit (Bld) [Volume fraction] 28.0 % Low 39.0-55.0 [facility] Comment on above: Performed By: #### L [id number] #### [facility] ([facility]) [address] [place] [address] Hemoglobin (Bld) [Mass/Vol] 8.9 g/dL Low 13.0-17.0 [facility] Comment on above: Performed By: #### L [id number] #### [facility] ([facility]) [address] [place] [address] MCH (RBC) [Entitic mass] 31.3 pg Normal 27.0-33.0 [facility] Comment on above: Performed By: #### L [id number] #### [facility] ([facility]) [address] [place] [address] MCV (RBC) [Entitic vol] 98.6 fL High 82.0-98.0 [facility] Comment on above: Performed By: #### L [id number] #### [facility] ([facility]) [address] [place] [address] PLATELETS (10*3/UL) IN BLOOD AUTOMATED COUNT 271 10*3/uL Normal 150-400 [facility] Comment on above: Performed By: #### L [id number] #### [facility] ([facility]) [address] [place] [address] RBC (Bld) [#/Vol] 2.84 10*6/uL Low 4.20-5.70 [facility] Comment on above: Performed By: #### L [id number] #### [facility] ([facility]) [address] [place] [address] WBC (Bld) [#/Vol] 5.94 10*3/uL Normal 4.00-10.60 [facility] Comment on above: Performed By: #### L [id number] #### [facility] ([facility]) [address] [place] [address] CBCon 06-20-2024 Erythrocyte distribution width (RBC) [Ratio] 16.1 % High 11.5-15.0 [facility] Comment on above: Performed By: #### L [id number] #### [facility] ([facility]) [address] [place] [address] ERYTHROCYTE MEAN CORPUSCULAR HEMOGLOBIN CONCENTRATION (G/DL) BY AUTOMATED 30.9 g/dL Low 32.0-35.0 [facility] Comment on above: Performed By: #### L [id number] #### [facility] ([facility]) [address] [place] [address] Hematocrit (Bld) [Volume fraction] 25.6 % Low 39.0-55.0 [facility] Comment on above: Performed By: #### L [id number] #### [facility] ([facility]) [address] [place] [address] Hemoglobin (Bld) [Mass/Vol] 7.9 g/dL Low 13.0-17.0 [facility] Comment on above: Performed By: #### L [id number] #### [facility] ([facility]) [address] [place] [address] MCH (RBC) [Entitic mass] 30.9 pg Normal 27.0-33.0 [facility] Comment on above: Performed By: #### L [id number] #### [facility] ([facility]) [address] [place] [address] MCV (RBC) [Entitic vol] 100.0 fL High 82.0-98.0 [facility] Comment on above: Performed By: #### L [id number] #### [facility] ([facility]) [address] [place] [address] PLATELETS (10*3/UL) IN BLOOD AUTOMATED COUNT 249 10*3/uL Normal 150-400 [facility] Comment on above: Performed By: #### L [id number] #### [facility] ([facility]) [address] [place] [address] RBC (Bld) [#/Vol] 2.56 10*6/uL Low 4.20-5.70 [facility] Comment on above: Performed By: #### L [id number] #### [facility] ([facility]) [address] [place] [address] WBC (Bld) [#/Vol] 8.31 10*3/uL Normal 4.00-10.60 [facility] Comment on above: Performed By: #### L [id number] #### [facility] ([facility]) [address] [place] [address] COMPREHENSIVE METABOLIC PANE Meir 06-20-2024 Albumin [Mass/Vol] 2.8 g/dL Low 3.5-5.7 [facility] Comment on above: Performed By: #### L [id number] #### [facility] ([facility]) [address] [place] [address] ALP [Catalytic activity/Vol] 112 U/L High 34-104 [facility] Comment on above: Performed By: #### L [id number] #### [facility] ([facility]) [address] [place] [address] ALT [Catalytic activity/Vol] 16 U/L Normal 7-52 [facility] Comment on above: Performed By: #### L [id number] #### [facility] ([facility]) [address] [place] [address] Anion gap [Moles/Vol] 8 mmol/L Normal 7-20 [facility] Comment on above: Performed By: #### L [id number] #### [facility] ([facility]) [address] [place] [address] AST [Catalytic activity/Vol] 12 U/L Low 13-39 [facility] Comment on above: Performed By: #### L [id number] #### [facility] ([facility]) [address] [place] [address] Bilirubin [Mass/Vol] 0.3 mg/dL Normal 0.3-1.0 [facility] Comment on above: Performed By: #### L [id number] #### [facility] ([facility]) [address] [place] [address] Calcium [Mass/Vol] 8.6 mg/dL Normal 8.6-10.3 [facility] Comment on above: Performed By: #### L [id number] #### [facility] ([facility]) [address] [place] [address] Chloride [Moles/Vol] 100 mmol/L Normal 98-107 [facility] Comment on above: Performed By: #### L [id number] #### [facility] ([facility]) [address] [place] [address] CO2 [Moles/Vol] 29 mmol/L Normal 21-31 [facility] Comment on above: Performed By: #### L [id number] #### [facility] ([facility]) [address] [place] [address] Creatinine [Mass/Vol] 0.78 mg/dL Normal 0.70-1.30 [facility] Comment on above: Performed By: #### L [id number] #### [facility] ([facility]) [address] [place] [address] GLOMERULAR FILTRATION RATE ML/MIN/1.73 SQ M.PREDICTED 88.5 mL/min/1.73m*2 Normal >60.0 [facility] Comment on above: Result Comment: [facility]???s estimated glomerular filtration rate (eGFR) will no longer include consideration of race in its calculation. The National Kidney Foundation???s eGFR Task Force developed new recommendations for the estimation of the glomerular filtration rate in the [place] They recommend immediate implementation of the new equation refit without the race variable in all laboratories because the calculation does not include race. In addition to not including race in the calculation and reporting, it included diversity in its development, and has acceptable performance characteristics and potential consequences that do not disproportionately affect any one group of individuals. Performed By: #### L [id number] #### [facility] ([facility]) [address] [place] [address] Glucose [Mass/Vol] 107 mg/dL High 70-100 [facility] Comment on above: Performed By: #### L [id number] #### [facility] ([facility]) [address] [place] [address] Potassium [Moles/Vol] 3.9 mmol/L Normal 3.5-5.1 [facility] Comment on above: Performed By: #### L [id number] #### [facility] ([facility]) [address] [place] [address] Protein [Mass/Vol] 6.0 g/dL Normal 6.0-8.3 [facility] Comment on above: Performed By: #### L [id number] #### [facility] ([facility]) [address] [place] [address] Sodium [Moles/Vol] 133 mmol/L Low 136-145 [facility] Comment on above: Performed By: #### L [id number] #### [facility] ([facility]) [address] [place] [address] Urea nitrogen [Mass/Vol] 37 mg/dL High 7-25 [facility] Comment on above: Performed By: #### L [id number] #### [facility] ([facility]) [address] [place] [address] UREA NITROGEN/CREATININE (MASS RATIO) IN SER/PLAS 47.4 Normal [facility] Comment on above: Performed By: #### L [id number] #### [facility] ([facility]) [address] [place] [address] BASIC METABOLIC PANELon 10- Anion gap [Moles/Vol] 11 mmol/L Normal 7-20 [facility] Comment on above: Performed By: #### L [id number] #### [facility] ([facility]) [address] [place] [address] Calcium [Mass/Vol] 8.7 mg/dL Normal 8.6-10.3 [facility] Comment on above: Performed By: #### L [id number] #### [facility] ([facility]) [address] [place] [address] Chloride [Moles/Vol] 102 mmol/L Normal 98-107 [facility] Comment on above: Performed By: #### L [id number] #### [facility] ([facility]) [address] [place] [address] CO2 [Moles/Vol] 25 mmol/L Normal 21-31 [facility] Comment on above: Performed By: #### L [id number] #### [facility] ([facility]) [address] [place] [address] Creatinine [Mass/Vol] 0.82 mg/dL Normal 0.70-1.30 [facility] Comment on above: Performed By: #### L [id number] #### [facility] ([facility]) [address] [place] [address] GLOMERULAR FILTRATION RATE ML/MIN/1.73 SQ M.PREDICTED 87.2 mL/min/1.73m*2 Normal >60.0 [facility] Comment on above: Result Comment: [facility]???s estimated glomerular filtration rate (eGFR) will no longer include consideration of race in its calculation. The National Kidney Foundation???s eGFR Task Force developed new recommendations for the estimation of the glomerular filtration rate in the [place] They recommend immediate implementation of the new equation refit without the race variable in all laboratories because the calculation does not include race. In addition to not including race in the calculation and reporting, it included diversity in its development, and has acceptable performance characteristics and potential consequences that do not disproportionately affect any one group of individuals. Performed By: #### L [id number] #### [facility] ([facility]) [address] [place] [address] Glucose [Mass/Vol] 55 mg/dL Low 70-100 [facility] Comment on above: Performed By: #### L [id number] #### [facility] ([facility]) [address] [place] [address] Potassium [Moles/Vol] 3.8 mmol/L Normal 3.5-5.1 [facility] Comment on above: Performed By: #### L [id number] #### [facility] ([facility]) [address] [place] [address] Sodium [Moles/Vol] 134 mmol/L Low 136-145 [facility] Comment on above: Performed By: #### L [id number] #### [facility] ([facility]) [address] [place] [address] Urea nitrogen [Mass/Vol] 41 mg/dL High 7-25 [facility] Comment on above: Performed By: #### L [id number] #### [facility] ([facility]) [address] [place] [address] UREA NITROGEN/CREATININE (MASS RATIO) IN SER/PLAS 50.0 Normal [facility] Comment on above: Performed By: #### L [id number] #### [facility] ([facility]) [address] [place] [address] CBCon 06-19-2024 Erythrocyte distribution width (RBC) [Ratio] 15.8 % High 11.5-15.0 [facility] Comment on above: Performed By: #### L [id number] #### [facility] ([facility]) [address] [place] [address] ERYTHROCYTE MEAN CORPUSCULAR HEMOGLOBIN CONCENTRATION (G/DL) BY AUTOMATED 30.4 g/dL Low 32.0-35.0 [facility] Comment on above: Performed By: #### L [id number] #### [facility] ([facility]) [address] [place] [address] Hematocrit (Bld) [Volume fraction] 29.3 % Low 39.0-55.0 [facility] Comment on above: Performed By: #### L [id number] #### [facility] ([facility]) [address] [place] [address] Hemoglobin (Bld) [Mass/Vol] 8.9 g/dL Low 13.0-17.0 [facility] Comment on above: Performed By: #### L [id number] #### [facility] ([facility]) [address] [place] [address] MCH (RBC) [Entitic mass] 30.7 pg Normal 27.0-33.0 [facility] Comment on above: Performed By: #### L [id number] #### [facility] ([facility]) [address] [place] [address] MCV (RBC) [Entitic vol] 101.0 fL High 82.0-98.0 [facility] Comment on above: Performed By: #### L [id number] #### [facility] ([facility]) [address] [place] [address] PLATELETS (10*3/UL) IN BLOOD AUTOMATED COUNT 252 10*3/uL Normal 150-400 [facility] Comment on above: Performed By: #### L [id number] #### [facility] ([facility]) [address] [place] [address] RBC (Bld) [#/Vol] 2.90 10*6/uL Low 4.20-5.70 [facility] Comment on above: Performed By: #### L [id number] #### [facility] ([facility]) [address] [place] [address] WBC (Bld) [#/Vol] 11.69 10*3/uL High 4.00-10.60 [facility] Comment on above: Performed By: #### L [id number] #### [facility] ([facility]) [address] [place] [address] MAGNESIUMon 06-19-2024 Magnesium [Mass/Vol] 2.0 mg/dL Normal 1.9-2.7 [facility] Comment on above: Performed By: #### L [id number] #### [facility] ([facility]) [address] [place] [address] PHOSPHORUSon 06-19-2024 Magnesium [Mass/Vol] 2.1 mg/dL Low 2.5-5.0 [facility] Comment on above: Performed By: #### L [id number] #### [facility] ([facility]) [address] [place] [address] BASIC METABOLIC PANELon 06-01 Anion gap [Moles/Vol] 10 mmol/L Normal 7-20 [facility] Comment on above: Performed By: #### L [id number] #### [facility] ([facility]) [address] [place] [address] Calcium [Mass/Vol] 8.3 mg/dL Low 8.6-10.3 [facility] Comment on above: Performed By: #### L [id number] #### [facility] ([facility]) [address] [place] [address] Chloride [Moles/Vol] 100 mmol/L Normal 98-107 [facility] Comment on above: Performed By: #### L [id number] #### [facility] ([facility]) [address] [place] [address] CO2 [Moles/Vol] 26 mmol/L Normal 21-31 [facility] Comment on above: Performed By: #### L [id number] #### [facility] ([facility]) [address] [place] [place] [address] Creatinine [Mass/Vol] 0.64 mg/dL Low 0.70-1.30 [facility] Comment on above: Performed By: #### L [id number] #### [facility] ([facility]) [address] [place] [address] GLOMERULAR FILTRATION RATE ML/MIN/1.73 SQ M.PREDICTED 93.9 mL/min/1.73m*2 Normal >60.0 [facility] Comment on above: Result Comment: [facility]???s estimated glomerular filtration rate (eGFR) will no longer include consideration of race in its calculation. The National Kidney Foundation???s eGFR Task Force developed new recommendations for the estimation of the glomerular filtration rate in the [place] They recommend immediate implementation of the new equation refit without the race variable in all laboratories because the calculation does not include race. In addition to not including race in the calculation and reporting, it included diversity in its development, and has acceptable performance characteristics and potential consequences that do not disproportionately affect any one group of individuals. Performed By: #### L [id number] #### [facility] ([facility]) [address] [place] [address] Glucose [Mass/Vol] 117 mg/dL High 70-100 [facility] Comment on above: Performed By: #### L [id number] #### [facility] ([facility]) [address] [place] [address] Potassium [Moles/Vol] 3.9 mmol/L Normal 3.5-5.1 [facility] Comment on above: Performed By: #### L [id number] #### [facility] ([facility]) [address] [place] [address] Sodium [Moles/Vol] 132 mmol/L Low 136-145 [facility] Comment on above: Performed By: #### L [id number] #### [facility] ([facility]) [address] [place] [address] Urea nitrogen [Mass/Vol] 30 mg/dL High 7-25 [facility] Comment on above: Performed By: #### L [id number] #### [facility] ([facility]) [address] [place] [address] UREA NITROGEN/CREATININE (MASS RATIO) IN SER/PLAS 46.9 Normal [facility] Comment on above: Performed By: #### L [id number] #### [facility] ([facility]) [address] [place] [address] CBCon 06-18-2024 Erythrocyte distribution width (RBC) [Ratio] 16.1 % High 11.5-15.0 [facility] Comment on above: Performed By: #### L [id number] #### [facility] ([facility]) [address] [place] [address] ERYTHROCYTE MEAN CORPUSCULAR HEMOGLOBIN CONCENTRATION (G/DL) BY AUTOMATED 31.0 g/dL Low 32.0-35.0 [facility] Comment on above: Performed By: #### L [id number] #### [facility] ([facility]) [address] [place] [address] Hematocrit (Bld) [Volume fraction] 25.5 % Low 39.0-55.0 [facility] Comment on above: Performed By: #### L [id number] #### [facility] ([facility]) [address] [place] [address] Hemoglobin (Bld) [Mass/Vol] 7.9 g/dL Low 13.0-17.0 [facility] Comment on above: Performed By: #### L [id number] #### [facility] ([facility]) [address] [place] [address] MCH (RBC) [Entitic mass] 31.1 pg Normal 27.0-33.0 [facility] Comment on above: Performed By: #### L [id number] #### [facility] ([facility]) [address] [place] [address] MCV (RBC) [Entitic vol] 100.4 fL High 82.0-98.0 [facility] Comment on above: Performed By: #### L [id number] #### [facility] ([facility]) [address] [place] [address] PLATELETS (10*3/UL) IN BLOOD AUTOMATED COUNT 232 10*3/uL Normal 150-400 [facility] Comment on above: Performed By: #### L [id number] #### [facility] ([facility]) [address] [place] [address] RBC (Bld) [#/Vol] 2.54 10*6/uL Low 4.20-5.70 [facility] Comment on above: Performed By: #### L [id number] #### [facility] ([facility]) [address] [place] [address] WBC (Bld) [#/Vol] 10.82 10*3/uL High 4.00-10.60 [facility] Comment on above: Performed By: #### L [id number] #### [facility] ([facility]) [address] [place] [address] SPUTUM CULTUREon 06-17-2024 GRAM STAIN RESULT Normal [facility] Comment on above: Order Comment: Moder ate Growth Colonies Consistent with Upper Respiratory [place] Result Comment: 10-2 5 Epithelial cells per low power field >25 Polys Per Low Power Field Moderate Gram positive cocci in clusters Few Gram positive cocci in chains Performed By: #### L [id number] #### [facility] ([facility]) [address] [place] [address] BASIC METABOLIC PANELon 10- Anion gap [Moles/Vol] 11 mmol/L Normal 7-20 [facility] Comment on above: Performed By: #### L [id number] #### [facility] ([facility]) [address] [place] [address] Calcium [Mass/Vol] 8.7 mg/dL Normal 8.6-10.3 [facility] Comment on above: Performed By: #### L [id number] #### [facility] ([facility]) [address] [place] [address] Chloride [Moles/Vol] 100 mmol/L Normal 98-107 [facility] Comment on above: Performed By: #### L [id number] #### [facility] ([facility]) [address] [place] [address] CO2 [Moles/Vol] 28 mmol/L Normal 21-31 [facility] Comment on above: Performed By: #### L [id number] #### [facility] ([facility]) [address] [place] [address] Creatinine [Mass/Vol] 0.65 mg/dL Low 0.70-1.30 [facility] Comment on above: Performed By: #### L [id number] #### [facility] ([facility]) [address] [place] [address] GLOMERULAR FILTRATION RATE ML/MIN/1.73 SQ M.PREDICTED 93.5 mL/min/1.73m*2 Normal >60.0 [facility] Comment on above: Result Comment: [facility]???s estimated glomerular filtration rate (eGFR) will no longer include consideration of race in its calculation. The National Kidney Foundation???s eGFR Task Force developed new recommendations for the estimation of the glomerular filtration rate in the [place] They recommend immediate implementation of the new equation refit without the race variable in all laboratories because the calculation does not include race. In addition to not including race in the calculation and reporting, it included diversity in its development, and has acceptable performance characteristics and potential consequences that do not disproportionately affect any one group of individuals. Performed By: #### L [id number] #### [facility] ([facility]) [address] [place] [address] Glucose [Mass/Vol] 120 mg/dL High 70-100 [facility] Comment on above: Performed By: #### L [id number] #### [facility] ([facility]) [address] [place] [place] [address] Potassium [Moles/Vol] 4.6 mmol/L Normal 3.5-5.1 [facility] Comment on above: Performed By: #### L [id number] #### [facility] ([facility]) [address] [place] [address] Sodium [Moles/Vol] 134 mmol/L Low 136-145 [facility] Comment on above: Performed By: #### L [id number] #### [facility] ([facility]) [address] [place] [place] [address] Urea nitrogen [Mass/Vol] 28 mg/dL High 7-25 [facility] Comment on above: Performed By: #### L [id number] #### [facility] ([facility]) [address] [place] [place] [address] UREA NITROGEN/CREATININE (MASS RATIO) IN SER/PLAS 43.1 Normal [facility] Comment on above: Performed By: #### L [id number] #### [facility] ([facility]) [address] [place] [place] [address] CBCon 06-16-2024 Erythrocyte distribution width (RBC) [Ratio] 16.3 % High 11.5-15.0 [facility] Comment on above: Performed By: #### L [id number] #### [facility] ([facility]) [address] [place] [address] ERYTHROCYTE MEAN CORPUSCULAR HEMOGLOBIN CONCENTRATION (G/DL) BY AUTOMATED 30.9 g/dL Low 32.0-35.0 [facility] Comment on above: Performed By: #### L [id number] #### [facility] ([facility]) [address] [place] [address] Hematocrit (Bld) [Volume fraction] 27.8 % Low 39.0-55.0 [facility] Comment on above: Performed By: #### L [id number] #### [facility] ([facility]) [address] [place] [address] Hemoglobin (Bld) [Mass/Vol] 8.6 g/dL Low 13.0-17.0 [facility] Comment on above: Performed By: #### L [id number] #### [facility] ([facility]) [address] [place] [address] MCH (RBC) [Entitic mass] 30.2 pg Normal 27.0-33.0 [facility] Comment on above: Performed By: #### L [id number] #### [facility] ([facility]) [address] [place] [address] MCV (RBC) [Entitic vol] 97.5 fL Normal 82.0-98.0 [facility] Comment on above: Performed By: #### L [id number] #### [facility] ([facility]) [address] [place] [address] PLATELETS (10*3/UL) IN BLOOD AUTOMATED COUNT 246 10*3/uL Normal 150-400 [facility] Comment on above: Performed By: #### L [id number] #### [facility] ([facility]) [address] [place] [address] RBC (Bld) [#/Vol] 2.85 10*6/uL Low 4.20-5.70 [facility] Comment on above: Performed By: #### L [id number] #### [facility] ([facility]) [address] [place] [address] WBC (Bld) [#/Vol] 10.51 10*3/uL Normal 4.00-10.60 [facility] Comment on above: Performed By: #### L [id number] #### [facility] ([facility]) [address] [place] [address] US GUIDED PLEURA CATH INSERT (OPAL)on 06-14-2024 US GUIDED PLEURA CATH INSERT (OPAL) Normal [facility] XA THORACENTESIS W/ IMAGE WILTON (OPAL)on 06-14-2024 XA THORACENTESIS W/ IMAGE GUIDE (OPAL) Normal [facility] CBC WITH AUTO DIFFERENTIALon 06-11-2024 Basophils (Bld) [#/Vol] 0.04 10*3/uL Normal 0.00-0.20 [facility] Comment on above: Performed By: #### L [id number] #### [facility] ([facility]) [address] [place] [address] Basophils/100 WBC (Bld) 0.4 % Normal 0.0-1.0 [facility] Comment on above: Performed By: #### L [id number] #### [facility] ([facility]) [address] [place] [address] Eosinophils (Bld) [#/Vol] 0.52 10*3/uL High 0.00-0.50 [facility] Comment on above: Performed By: #### L [id number] #### [facility] ([facility]) [address] [place] [address] Eosinophils/100 WBC (Bld) 4.9 % Normal 0.0-6.0 [facility] Comment on above: Performed By: #### L [id number] #### [facility] ([facility]) [address] [place] [address] Erythrocyte distribution width (RBC) [Ratio] 16.7 % High 11.5-15.0 [facility] Comment on above: Performed By: #### L [id number] #### [facility] ([facility]) [address] [place] [address] ERYTHROCYTE MEAN CORPUSCULAR HEMOGLOBIN CONCENTRATION (G/DL) BY AUTOMATED 31.5 g/dL Low 32.0-35.0 [facility] Comment on above: Performed By: #### L [id number] #### [facility] ([facility]) [address] [place] [address] Hematocrit (Bld) [Volume fraction] 32.4 % Low 39.0-55.0 [facility] Comment on above: Performed By: #### L [id number] #### [facility] ([facility]) [address] [place] [address] Hemoglobin (Bld) [Mass/Vol] 10.2 g/dL Low 13.0-17.0 [facility] Comment on above: Performed By: #### L [id number] #### [facility] ([facility]) [address] [place] [address] Immature granulocytes (Bld) [#/Vol] 0.28 10*3/uL High 0.00-0.20 [facility] Comment on above: Performed By: #### L [id number] #### [facility] ([facility]) [address] [place] [address] Immature granulocytes/100 WBC (Bld) 2.6 % High 0.0-1.0 [facility] Comment on above: Performed By: #### L [id number] #### [facility] ([facility]) [address] [place] [address] Lymphocytes (Bld) [#/Vol] 1.09 10*3/uL Low 1.20-4.00 [facility] Comment on above: Performed By: #### L [id number] #### [facility] [facility] [address] [place] [address] Lymphocytes/100 WBC (Bld) 10.3 % Low 20.0-45.0 [facility] Comment on above: Performed By: #### L [id number] #### [facility] ([facility]) [address] [place] [address] MCH (RBC) [Entitic mass] 30.7 pg Normal 27.0-33.0 [facility] Comment on above: Performed By: #### L [id number] #### [facility] ([facility]) [address] [place] [address] MCV (RBC) [Entitic vol] 97.6 fL Normal 82.0-98.0 [facility] Comment on above: Performed By: #### L [id number] #### [facility] ([facility]) [address] [place] [address] Monocytes (Bld) [#/Vol] 0.80 10*3/uL Normal 0.10-1.00 [facility] Comment on above: Performed By: #### L [id number] #### [facility] ([facility]) [address] [place] [address] Monocytes/100 WBC (Bld) 7.5 % Normal 5.0-12.0 [facility] Comment on above: Performed By: #### L [id number] #### [facility] ([facility]) [address] [place] [address] Neutrophils (Bld) [#/Vol] 7.88 10*3/uL High 1.60-7.60 [facility] Comment on above: Performed By: #### L [id number] #### [facility] ([facility]) [address] [place] [address] Neutrophils/100 WBC (Bld) 74.3 % High 40.0-72.0 [facility] Comment on above: Performed By: #### L [id number] #### [facility] ([facility]) [address] [place] [address] NRBC (PER 100 WBCS) BY AUTOMATED COUNT 0.0 % Normal 0 [facility] Comment on above: Performed By: #### L [id number] #### [facility] ([facility]) [address] [place] [address] PLATELETS (10*3/UL) IN BLOOD AUTOMATED COUNT 307 10*3/uL Normal 150-400 [facility] Comment on above: Performed By: #### L [id number] #### [facility] ([facility]) [address] [place] [address] RBC (Bld) [#/Vol] 3.32 10*6/uL Low 4.20-5.70 [facility] Comment on above: Performed By: #### L [id number] #### [facility] ([facility]) [address] [place] [address] WBC (Bld) [#/Vol] 10.61 10*3/uL High 4.00-10.60 [facility] Comment on above: Performed By: #### L [id number] #### [facility] ([facility]) [address] [place] [address] COMPREHENSIVE METABOLIC PANE Meir 06-11-2024 Albumin [Mass/Vol] 2.9 g/dL Low 3.5-5.7 [facility] Comment on above: Performed By: #### L [id number] #### [facility] ([facility]) [address] [place] [address] ALP [Catalytic activity/Vol] 150 U/L High 34-104 [facility] Comment on above: Performed By: #### L [id number] #### [facility] ([facility]) [address] [place] [address] ALT [Catalytic activity/Vol] 17 U/L Normal 7-52 [facility] Comment on above: Performed By: #### L [id number] #### [facility] ([facility]) [address] [place] [address] Anion gap [Moles/Vol] 8 mmol/L Normal 7-20 [facility] Comment on above: Performed By: #### L [id number] #### [facility] ([facility]) [address] [place] [address] AST [Catalytic activity/Vol] 19 U/L Normal 13-39 [facility] Comment on above: Performed By: #### L [id number] #### [facility] ([facility]) [address] [place] [address] Bilirubin [Mass/Vol] 0.5 mg/dL Normal 0.3-1.0 [facility] Comment on above: Performed By: #### L [id number] #### [facility] ([facility]) [address] [place] [address] Calcium [Mass/Vol] 8.3 mg/dL Low 8.6-10.3 [facility] Comment on above: Performed By: #### L [id number] #### [facility] ([facility]) [address] [place] [address] Chloride [Moles/Vol] 100 mmol/L Normal 98-107 [facility] Comment on above: Performed By: #### L [id number] #### [facility] ([facility]) [address] [place] [address] CO2 [Moles/Vol] 30 mmol/L Normal 21-31 [facility] Comment on above: Performed By: #### L [id number] #### [facility] ([facility]) [address] [place] [address] Creatinine [Mass/Vol] 0.78 mg/dL Normal 0.70-1.30 [facility] Comment on above: Performed By: #### L [id number] #### [facility] ([facility]) [address] [place] [address] GLOMERULAR FILTRATION RATE ML/MIN/1.73 SQ M.PREDICTED 88.5 mL/min/1.73m*2 Normal >60.0 [facility] Comment on above: Result Comment: The [facility]???s estimated glomerular filtration rate (eGFR) will no longer include consideration of race in its calculation. The National Kidney Foundation???s eGFR Task Force developed new recommendations for the estimation of the glomerular filtration rate in the [place] They recommend immediate implementation of the new equation refit without the race variable in all laboratories because the calculation does not include race. In addition to not including race in the calculation and reporting, it included diversity in its development, and has acceptable performance characteristics and potential consequences that do not disproportionately affect any one group of individuals. Performed By: #### L [id number] #### [facility] ([facility]) [address] [place] [address] Glucose [Mass/Vol] 109 mg/dL High 70-100 [facility] Comment on above: Performed By: #### L [id number] #### [facility] ([facility]) [address] [place] [address] Potassium [Moles/Vol] 3.7 mmol/L Normal 3.5-5.1 [facility] Comment on above: Performed By: #### L [id number] #### [facility] ([facility]) [address] [place] [address] Protein [Mass/Vol] 5.5 g/dL Low 6.0-8.3 [facility] Comment on above: Performed By: #### L [id number] #### [facility] ([facility]) [address] [place] [address] Sodium [Moles/Vol] 134 mmol/L Low 136-145 [facility] Comment on above: Performed By: #### L [id number] #### [facility] ([facility]) [address] [place] [address] Urea nitrogen [Mass/Vol] 29 mg/dL High 7-25 [facility] Comment on above: Performed By: #### L [id number] #### [facility] ([facility]) [address] [place] [address] UREA NITROGEN/CREATININE (MASS RATIO) IN SER/PLAS 37.2 Normal [facility] Comment on above: Performed By: #### L [id number] #### [facility] ([facility]) [address] [place] [address] MAGNESIUMon 06-11-2024 Magnesium [Mass/Vol] 2.0 mg/dL Normal 1.9-2.7 [facility] Comment on above: Performed By: #### L [id number] #### [facility] ([facility]) [address] [place] [address] PHOSPHORUSon 06-11-2024 Magnesium [Mass/Vol] 2.7 mg/dL Normal 2.5-5.0 [facility] Comment on above: Performed By: #### L AB15 #### [facility] ([facility]) [address] [place] [address] ANTI FXA-LMW HEPARINon 06-10 ANTI FXA-LMW HEPARIN ASSAY 0.26 IU/mL Normal [facility] Comment on above: Order Comment: The r ecommended therapeutic range for treatment of thrombosis with Low Molecular Weight Heparin is 0.5 - 1.0 IU/mLThe recommended range for VTE prophylaxis with Low Molecular Weight Heparin is 0.2 - 0.4 IU/mL. Performed By: #### A XL ####[facility] [id number] [place], [place], BASIC METABOLIC PANELon 10 Anion gap [Moles/Vol] 12 mmol/L Normal 10-20 [facility] Comment on above: Performed By: #### P HOS, MG, CH8 ####[facility] [id number] [place], [place], Calcium [Mass/Vol] 8.4 mg/dL Low 8.6-10.3 [facility] Comment on above: Performed By: #### P HOS MG, CH8 ####[facility] PATHOLOG[facility] [id number] [place], [place], Chloride [Moles/Vol] 97 mmol/L Low 98-107 [facility] Comment on above: Performed By: #### P HOS, MG, CH8 ####[facility] [id number] [place], CO2 [Moles/Vol] 29 mmol/L Normal 21-31 [facility] Comment on above: Performed By: #### P HOS, MG, CH8 ####[facility] [id number] [place], [place], Creatinine [Mass/Vol] 0.58 mg/dL Low 0.70-1.30 [facility] Comment on above: Performed By: #### P HOS, MG, CH8 ####[facility] [id number] [place], [place], ESTIMATED GFR (CKD-EPI) 97 mL/min/1.73sqm Normal >=60 [facility] Comment on above: Result Comment: 2020 CKD EPI Equation using Creatinine without RaceComment: Estimated glomerular filtration rate (eGFR) is calculated without a race coefficient. Values should be interpreted in the context of the patient's full clinical presentation.Reference:1. Rishi C, Jorge M, Nic DC, et al.. A Unifying Approach for GFR Estimation: Recommendations of the NKF-ASN Task Force on Reassessing the Inclusion of Race in Diagnosing Kidney Disease. [place] Journal of Kidney Diseases 2021;79(2):268-88.e1.2. N Engl J Med 1 Vol. 385 Issue 19 Pages 6010-8632 Performed By: #### P GWENDOLYN MG, CH8 ####[facility] [id number] [place], [place], Glucose [Mass/Vol] 104 mg/dL Normal 74-109 [facility] Comment on above: Performed By: #### P HOS MG, CH8 ####[facility] [id number] [place], [place], Potassium [Moles/Vol] 4.1 mmol/L Normal 3.5-5.0 [facility] Comment on above: Performed By: #### P HOS MG, CH8 ####[facility] [id number] [place], Sodium [Moles/Vol] 134 mmol/L Low 136-145 [facility] Comment on above: Performed By: #### P HOS MG, CH8 ####[facility] [id number] [place], Urea nitrogen [Mass/Vol] 22 mg/dL Normal 7-25 [facility] Comment on above: Performed By: #### P HOS MG, CH8 ####[facility] [id number] [place], [place], COMPLETE BLOOD COUNTon 06-10 Erythrocyte distribution width (RBC) [Ratio] 16.9 % High 11.5-14.5 [facility] Comment on above: Performed By: #### C BC ####[facility] [id number] [place], [place], Hematocrit (Bld) [Volume fraction] 33.8 % Low 41.0-53.0 [facility] Comment on above: Performed By: #### C BC ####[facility] [id number] [place], Hemoglobin (Bld) [Mass/Vol] 11.4 g/dL Low 13.9-16.3 [facility] Comment on above: Performed By: #### C BC ####[facility] [id number] [place], [place], MCH (RBC) [Entitic mass] 31.5 pg Normal 26.0-34.0 [facility] Comment on above: Performed By: #### C BC ####[facility] [id number] [place], [place], MCHC (RBC) [Mass/Vol] 33.8 g/dL Normal 32.0-35.9 [facility] Comment on above: Performed By: #### C BC ####[facility] [id number] [place], MCV (RBC) [Entitic vol] 93 fL Normal 80-100 [facility] Comment on above: Performed By: #### C BC ####[facility] [id number] [place], Platelet mean volume (Bld) [Entitic vol] 7.2 fL Low 7.5-11.2 [facility] Comment on above: Performed By: #### C BC ####[facility] [id number] [place], Platelets (Bld) [#/Vol] 354 10*3/uL Normal 150-400 [facility] Comment on above: Performed By: #### C BC ####[facility] [id number] [place], RBC (Bld) [#/Vol] 3.62 10*6/uL Low 4.50-5.90 [facility] Comment on above: Performed By: #### C BC ####[facility] [id number] [place], WBC (Bld) [#/Vol] 9.4 10*3/uL Normal 4.5-11.5 [facility] Comment on above: Performed By: #### C BC ####[facility] [id number] [place], [place], Consultson 06-10-2024 Cushion Maker Hand Authentication Interface Message Text Normal [facility] Discharge Planning Noteon Cushion Maker Hand Authentication Interface Message Text Normal [facility] MAGNESIUMon 06-10-2024 Magnesium [Mass/Vol] 2.0 mg/dL Normal 1.9-2.7 [facility] Comment on above: Performed By: #### P HOS, MG, CH8 ####[facility] [id number] [place], PHOSPHORUSon 06-10-2024 Phosphate [Mass/Vol] 2.4 mg/dL Low 2.5-5.0 [facility] Comment on above: Performed By: #### P HOS, MG, CH8 ####[facility] [id number] [place], [place], Progress Noteson 06-10-2024 Cushion Maker Hand Authentication Interface Message Text Normal [facility] Cushion Maker Hand Authentication Interface Message Text Normal [facility] Cushion Maker Hand Authentication Interface Message Text Normal [facility] XR CHEST AP OR PA 1 VIEWon 1 XR CHEST AP OR PA 1 VIEW Normal [facility] XR CHEST AP OR PA 1 VIEW Normal [facility] XR Chest Single viewon 06-10 EXAMINATION: XR CHES T AP OR PA 1 VIEW 06/10/2024 06:44 AM CLINICAL HISTORY: Chest tube assessment ASSOCIATED DIAGNOSIS: Chest tube assessment ORDERING PROVIDER: MALIK RAMOS TECHNOLOGISTS NOTE: COMPARISON: XR CHEST AP OR PA 1 VIEW 06/09/2024, 6:[address] CHEST/ABD/PELVIS W/ CONTRAST 06/06/2024, 3:09 PM FINDINGS: Position and projection: AP semierect. Limitations: None. Clinical considerations: Obtained from EMR. Lines, tubes, and devices: Tracheostomy tube terminates overlying the tracheal air column. Medial right basilar pleural pigtail drainage catheter. Cardiomediastinal silhouette: Normal heart size. Lungs and pleura: Focal mid right pulmonary density, concerning for atelectasis, pulmonary contusion and/or retained fluid in the pleural fissures. No pneumothorax. Osseous structures: Multiple acute right rib fractures with plate and screw fixation of the posterolateral left 7th-10th ribs. Chest wall: Telemetry leads overlying the chest. IMPRESSION: 1. Status post recent chest trauma with multiple acute right rib fractures, status post plate and screw fixation of the posterolateral left 7th and 10th ribs. 2. Medial right basilar pleural pigtail drainage catheter without evidence of a pneumothorax or sizable pleural effusion. 3. Focal mid right pulmonary density, concerning for atelectasis, pulmonary contusion and/or retained fluid in the pleural fissures. MACRO: None RADIOLOGY Gerber Mcdaniel, DO - 06/10/2024 EXAMINATION: XR CHEST AP OR PA 1 VIEW 06/10/2024 06:44 AM CLINICAL HISTORY: Chest tube assessment ASSOCIATED DIAGNOSIS: Chest tube assessment ORDERING PROVIDER: MALIK RAMOS TECHNOLOGISTS NOTE: COMPARISON: XR CHEST AP OR PA 1 VIEW 06/09/2024, 6:[address] CHEST/ABD/PELVIS W/ CONTRAST 06/06/2024, 3:09 PM FINDINGS: Position and projection: AP semierect. Limitations: None. Clinical considerations: Obtained from EMR. Lines, tubes, and devices: Tracheostomy tube terminates overlying the tracheal air column. Medial right basilar pleural pigtail drainage catheter. Cardiomediastinal silhouette: Normal heart size. Lungs and pleura: Focal mid right pulmonary density, concerning for atelectasis, pulmonary contusion and/or retained fluid in the pleural fissures. No pneumothorax. Osseous structures: Multiple acute right rib fractures with plate and screw fixation of the posterolateral left 7th-10th ribs. Chest wall: Telemetry leads overlying the chest. IMPRESSION: 1. Status post recent chest trauma with multiple acute right rib fractures, status post plate and screw fixation of the posterolateral left 7th and 10th ribs. 2. Medial right basilar pleural pigtail drainage catheter without evidence of a pneumothorax or sizable pleural effusion. 3. Focal mid right pulmonary density, concerning for atelectasis, pulmonary contusion and/or retained fluid in the pleural fissures. MACRO: None [facility] Radiology Study observation (narrative) [facility] XR Chest Single viewOrdered By: Gerber Mcdaniel on 06-10-2024 [facility] Phone: BASIC METABOLIC PANELon 10-0 Anion gap [Moles/Vol] 13 mmol/L Normal 10-20 [facility] Comment on above: Performed By: #### MG Rich PHOS ####[facility] [id number] [place], Calcium [Mass/Vol] 8.2 mg/dL Low 8.6-10.3 [facility] Comment on above: Performed By: #### MG Layla, PHOS ####[facility] [id number] [place], [place], Chloride [Moles/Vol] 95 mmol/L Low 98-107 [facility] Comment on above: Performed By: #### MG Layla PHOS ####[facility] [id number] [place], CO2 [Moles/Vol] 30 mmol/L Normal 21-31 [facility] Comment on above: Performed By: #### MG Layla PHOS ####[facility] [id number] [place], Creatinine [Mass/Vol] 0.49 mg/dL Low 0.70-1.30 [facility] Comment on above: Performed By: #### MG Layla PHOS ####[facility] [id number] [place], ESTIMATED GFR (CKD-EPI) 102 mL/min/1.73sqm Normal >=60 [facility] Comment on above: Result Comment: 2020 CKD EPI Equation using Creatinine without RaceComment: Estimated glomerular filtration rate (eGFR) is calculated without a race coefficient. Values should be interpreted in the context of the patient's full clinical presentation.Reference:1. Rishi C, Jorge M, Nic SILVA, et al.. A Unifying Approach for GFR Estimation: Recommendations of the NKF-ASN Task Force on Reassessing the Inclusion of Race in Diagnosing Kidney Disease. [place] Journal of Kidney Diseases 2021;79(2):268-88.e1.2. N Engl J Med 1 Vol. 385 Issue 19 Pages 1958-7200 Performed By: #### Rebeac H8MG PHOS ####[facility] [id number] [place], Glucose [Mass/Vol] 87 mg/dL Normal 74-109 [facility] Comment on above: Performed By: #### Rebeca HMG Ivis, PHOS ####[facility] [id number] [place], Potassium [Moles/Vol] 3.2 mmol/L Low 3.5-5.0 [facility] Comment on above: Performed By: #### Rebeca H8MG, PHOS ####[facility] [id number] [place], Sodium [Moles/Vol] 135 mmol/L Low 136-145 [facility] Comment on above: Performed By: #### MG Rich PHOS ####[facility] [id number] [place], Urea nitrogen [Mass/Vol] 14 mg/dL Normal 7-25 [facility] Comment on above: Performed By: #### MG Rich PHOS ####[facility] [id number] [place], COMPLETE BLOOD COUNTon 06-09 Erythrocyte distribution width (RBC) [Ratio] 17.6 % High 11.5-14.5 [facility] Comment on above: Performed By: #### C BC ####[facility] [id number] [place], Hematocrit (Bld) [Volume fraction] 31.4 % Low 41.0-53.0 [facility] Comment on above: Performed By: #### C BC ####[facility] [id number] [place], Hemoglobin (Bld) [Mass/Vol] 10.5 g/dL Low 13.9-16.3 [facility] Comment on above: Performed By: #### C BC ####[facility] [id number] [place], MCH (RBC) [Entitic mass] 31.1 pg Normal 26.0-34.0 [facility] Comment on above: Performed By: #### C BC ####[facility] [id number] [place], MCHC (RBC) [Mass/Vol] 33.3 g/dL Normal 32.0-35.9 [facility] Comment on above: Performed By: #### C BC ####[facility] [id number] [place], MCV (RBC) [Entitic vol] 94 fL Normal 80-100 [facility] Comment on above: Performed By: #### C BC ####[facility] [id number] [place], Platelet mean volume (Bld) [Entitic vol] 7.2 fL Low 7.5-11.2 [facility] Comment on above: Performed By: #### C BC ####[facility] [id number] [place], Platelets (Bld) [#/Vol] 331 10*3/uL Normal 150-400 [facility] Comment on above: Performed By: #### C BC ####[facility] [id number] [place], RBC (Bld) [#/Vol] 3.36 10*6/uL Low 4.50-5.90 [facility] Comment on above: Performed By: #### C BC ####[facility] [id number] [place], WBC (Bld) [#/Vol] 7.2 10*3/uL Normal 4.5-11.5 [facility] Comment on above: Performed By: #### C BC ####[facility] [id number] [place], [place], Consultson 06-09-2024 Cushion Maker Hand Authentication Interface Message Text Normal [facility] MAGNESIUMon 06-09-2024 Magnesium [Mass/Vol] 1.6 mg/dL Low 1.9-2.7 [facility] Comment on above: Performed By: #### C H8, MG, PHOS ####[facility] [id number] [place], PHOSPHORUSon 06-09-2024 Phosphate [Mass/Vol] 3.1 mg/dL Normal 2.5-5.0 [facility] Comment on above: Performed By: #### C H8, MG, PHOS ####[facility] [id number] [place], [place], Progress Noteson 06-09-2024 Cushion Maker Hand Authentication Interface Message Text Normal [facility] Cushion Maker Hand Authentication Interface Message Text Normal [facility] XR CHEST AP OR PA 1 VIEWon 1 XR CHEST AP OR PA 1 VIEW Normal [facility] XR Chest Single viewon 06-09 EXAMINATION: XR CHES T AP OR PA 1 VIEW 06/09/2024 06:43 AM CLINICAL HISTORY: follow up exam ASSOCIATED DIAGNOSIS: follow up exam ORDERING PROVIDER: JOSE M DIAZ NOTE: COMPARISON: XR CHEST AP OR PA 1 VIEW 06/08/2024, 12:52 PM XR CHEST AP OR PA 1 VIEW 06/08/2024, 7:06 AM FINDINGS: Lines, tubes, and devices: Right pleural drainage catheter in the medial right lung base may be kinked at the skin entrance site. Tracheostomy tube in stable position. Lungs and pleura: No appreciable pleural effusion or pneumothorax. Cardiomediastinal silhouette: Normal cardiomediastinal silhouette. Musculoskeletal: Right rib fractures with ORIF plates and screws. IMPRESSION: Right pleural drainage catheter in stable position. The catheter may be kinked at the skin entrance site however there is no pleural effusion or pneumothorax visible. MACRO: None RADIOLOGY Micah Lynne MD - 06/09/2024 EXAMINATION: XR CHEST AP OR PA 1 VIEW 06/09/2024 06:43 AM CLINICAL HISTORY: follow up exam ASSOCIATED DIAGNOSIS: follow up exam ORDERING PROVIDER: JOSE M DIAZ NOTE: COMPARISON: XR CHEST AP OR PA 1 VIEW 06/08/2024, 12:52 PM XR CHEST AP OR PA 1 VIEW 06/08/2024, 7:06 AM FINDINGS: Lines, tubes, and devices: Right pleural drainage catheter in the medial right lung base may be kinked at the skin entrance site. Tracheostomy tube in stable position. Lungs and pleura: No appreciable pleural effusion or pneumothorax. Cardiomediastinal silhouette: Normal cardiomediastinal silhouette. Musculoskeletal: Right rib fractures with ORIF plates and screws. IMPRESSION: Right pleural drainage catheter in stable position. The catheter may be kinked at the skin entrance site however there is no pleural effusion or pneumothorax visible. MACRO: None [facility] Radiology Study observation (narrative) [employer] XR Chest Single viewOrdered By: Micah Lynne on 06-09-2024 [employer] Work Phone: BASIC METABOLIC PANELon 10-0 Anion gap [Moles/Vol] 11 mmol/L Normal 10-20 [facility] Comment on above: Performed By: #### Rebeca Rodriges MG, PHOS ####[facility] [id number] [place], [place], Calcium [Mass/Vol] 8.5 mg/dL Low 8.6-10.3 [facility] Comment on above: Performed By: #### Rebeca HIvis MG, PHOS ####[facility] [id number] [place], Chloride [Moles/Vol] 98 mmol/L Normal 98-107 [facility] Comment on above: Performed By: #### Rebeca H8 MG, PHOS ####[facility] [id number] [place], CO2 [Moles/Vol] 31 mmol/L Normal 21-31 [facility] Comment on above: Performed By: #### C H8 MG, PHOS ####[facility] [id number] [place], Creatinine [Mass/Vol] 0.44 mg/dL Low 0.70-1.30 [facility] Comment on above: Performed By: #### C H8, MG, PHOS ####[facility] [id number] [place], ESTIMATED GFR (CKD-EPI) 105 mL/min/1.73sqm Normal >=60 [facility] Comment on above: Result Comment: 2020 CKD EPI Equation using Creatinine without RaceComment: Estimated glomerular filtration rate (eGFR) is calculated without a race coefficient. Values should be interpreted in the context of the patient's full clinical presentation.Reference:1. Rishi Jose, Jorge M, Nic SILVA, et al.. A Unifying Approach for GFR Estimation: Recommendations of the NKF-ASN Task Force on Reassessing the Inclusion of Race in Diagnosing Kidney Disease. Citizen [place] Journal of Kidney Diseases 2021;79(2):268-88.e1.2. N Engl J Med 2020 Vol. 385 Issue 19 Pages 1028-2159 Performed By: #### C H8, MG, PHOS ####[facility] [id number] [place], Glucose [Mass/Vol] 104 mg/dL Normal 74-109 [facility] Comment on above: Performed By: #### C H8, MG, PHOS ####[facility] [id number] [place], Potassium [Moles/Vol] 3.2 mmol/L Low 3.5-5.0 [facility] Comment on above: Performed By: #### C H8, MG, PHOS ####[facility] [id number] [place], Sodium [Moles/Vol] 137 mmol/L Normal 136-145 [facility] Comment on above: Performed By: #### C H8, MG, PHOS ####[facility] [id number] [place], Urea nitrogen [Mass/Vol] 16 mg/dL Normal 7-25 [facility] Comment on above: Performed By: #### C H8, MG, PHOS ####[facility] [id number] [place], COMPLETE BLOOD COUNTon 06-08 Erythrocyte distribution width (RBC) [Ratio] 17.1 % High 11.5-14.5 [facility] Comment on above: Performed By: #### C BC ####[facility] [id number] [place], Hematocrit (Bld) [Volume fraction] 30.1 % Low 41.0-53.0 The [facility] Comment on above: Performed By: #### C BC ####[facility] PATHOLOGY [id number] [place], Hemoglobin (Bld) [Mass/Vol] 9.9 g/dL Low 13.9-16.3 The [facility] Comment on above: Performed By: #### C BC ####[facility] PATHOLOGY [id number] [place], MCH (RBC) [Entitic mass] 30.6 pg Normal 26.0-34.0 The [facility] Comment on above: Performed By: #### C BC ####[facility] PATHOLOGY [id number] [place] [address], MCHC (RBC) [Mass/Vol] 33.0 g/dL Normal 32.0-35.9 The [facility] Comment on above: Performed By: #### C BC ####[facility] PATHOLOGY [id number] [place] [address], MCV (RBC) [Entitic vol] 93 fL Normal 80-100 The [facility] Comment on above: Performed By: #### C BC ####[facility] PATHOLOGY [id number] [place] [address], Platelet mean volume (Bld) [Entitic vol] 7.0 fL Low 7.5-11.2 The [facility] Comment on above: Performed By: #### C BC ####[facility] PATHOLOGY ATOIYJOUXL[address] [place] [address], Platelets (Bld) [#/Vol] 370 10*3/uL Normal 150-400 The [facility] Comment on above: Performed By: #### C BC ####[facility] PATHOLOGY [id number] [place], RBC (Bld) [#/Vol] 3.24 10*6/uL Low 4.50-5.90 The [facility] Comment on above: Performed By: #### C BC ####[facility] PATHOLOGY [id number] [place], WBC (Bld) [#/Vol] 5.8 10*3/uL Normal 4.5-11.5 [facility] Comment on above: Performed By: #### C BC ####[facility] [id number] [place], [place], Consultson 06-08-2024 [employer] Authentication Interface Message Text Normal [facility] [employer] Authentication Interface Message Text Normal [facility] MAGNESIUMon 06-08-2024 Magnesium [Mass/Vol] 1.9 mg/dL Normal 1.9-2.7 [facility] Comment on above: Performed By: #### C H8, MG, PHOS ####[facility] [id number] [place], PHOSPHORUSon 06-08-2024 Phosphate [Mass/Vol] 2.5 mg/dL Normal 2.5-5.0 [facility] Comment on above: Performed By: #### C H8, MG, PHOS ####[facility] [id number] [place], Post-Procedure Noteon 2023 [employer] Authentication Interface Message Text Normal [facility] Pre-Procedure Noteon [employer] Authentication Interface Message Text Normal [facility] Progress Noteson 06-08-2024 [employer] Authentication Interface Message Text Normal [facility] [employer] Hand Authentication Interface Message Text Normal [facility] XR CHEST AP OR PA 1 VIEWon 1 XR CHEST AP OR PA 1 VIEW Normal [facility] XR CHEST AP OR PA 1 VIEW Normal [facility] XR Chest Single viewon 06-08 EXAMINATION: XR CHES T AP OR PA 1 VIEW 06/08/2024 07:06 AM CLINICAL HISTORY: Endotracheal tube assessment ASSOCIATED DIAGNOSIS: Endotracheal tube assessment ORDERING PROVIDER: MALIK RAMOS TECHNOLOGISTS NOTE: COMPARISON: XR CHEST AP OR PA 1 VIEW 06/05/2024, 9:27 AM XR CHEST AP OR PA 1 VIEW 06/04/2024, 6:13 AM XR CHEST AP OR PA 1 VIEW 06/03/2024, 6:42 AM FINDINGS: Lines, tubes, and devices: Tracheostomy tube in appropriate position. EKG leads overlie the chest. Lungs and pleura: Mild bibasilar atelectasis. Stable mild elevation right hemidiaphragm. No gross pneumothorax. Right pleural thickening appears stable. Cardiomediastinal silhouette: Normal cardiomediastinal silhouette. Musculoskeletal: Multiple displaced right rib fractures. Several orthopedic plates and screws are partially visualized. IMPRESSION: 1. Stable mild elevation right hemidiaphragm and right pleural thickening with numerous displaced right rib fractures some of which with orthopedic plates and screws. 2. Mild bibasilar atelectasis. MACRO: None RADIOLOGY Micah Lynne MD - 06/08/2024 EXAMINATION: XR CHEST AP OR PA 1 VIEW 06/08/2024 07:06 AM CLINICAL HISTORY: Endotracheal tube assessment ASSOCIATED DIAGNOSIS: Endotracheal tube assessment ORDERING PROVIDER: MALIK RAMOS TECHNOLOGISTS NOTE: COMPARISON: XR CHEST AP OR PA 1 VIEW 06/05/2024, 9:27 AM XR CHEST AP OR PA 1 VIEW 06/04/2024, 6:13 AM XR CHEST AP OR PA 1 VIEW 06/03/2024, 6:42 AM FINDINGS: Lines, tubes, and devices: Tracheostomy tube in appropriate position. EKG leads overlie the chest. Lungs and pleura: Mild bibasilar atelectasis. Stable mild elevation right hemidiaphragm. No gross pneumothorax. Right pleural thickening appears stable. Cardiomediastinal silhouette: Normal cardiomediastinal silhouette. Musculoskeletal: Multiple displaced right rib fractures. Several orthopedic plates and screws are partially visualized. IMPRESSION: 1. Stable mild elevation right hemidiaphragm and right pleural thickening with numerous displaced right rib fractures some of which with orthopedic plates and screws. 2. Mild bibasilar atelectasis. MACRO: None [facility] Radiology Study observation (narrative) [employer] XR Chest Single viewOrdered By: Micah Lynne on 06-08-2024 [employer] Work Phone: BASIC METABOLIC PANELon 10-0 Anion gap [Moles/Vol] 14 mmol/L Normal 10-20 [facility] Comment on above: Performed By: #### M Halina, CH8, PHOS ####[facility] [id number] [place] [address], Calcium [Mass/Vol] 8.1 mg/dL Low 8.6-10.3 [facility] Comment on above: Performed By: ###AMMON Holder, RADS ####[facility] [id number] [place], Chloride [Moles/Vol] 102 mmol/L Normal 98-107 [facility] Comment on above: Performed By: ###AMMON Holder, RADS ####[facility] [id number] [place], CO2 [Moles/Vol] 29 mmol/L Normal 21-31 [facility] Comment on above: Performed By: ###AMMON Holder, RADS ####[facility] [id number] [place], Creatinine [Mass/Vol] 0.55 mg/dL Low 0.70-1.30 [facility] Comment on above: Performed By: ###AMMON Holder, RADS ####[facility] [id number] [place], ESTIMATED GFR (CKD-EPI) 98 mL/min/1.73sqm Normal >=60 [facility] Comment on above: Result Comment: 2020 CKD EPI Equation using Creatinine without RaceComment: Estimated glomerular filtration rate (eGFR) is calculated without a race coefficient. Values should be interpreted in the context of the patient's full clinical presentation.Reference:1. Rishi C, Jorge M, Nic SILVA, et al.. A Unifying Approach for GFR Estimation: Recommendations of the NKF-ASN Task Force on Reassessing the Inclusion of Race in Diagnosing Kidney Disease. Citizen [place] Journal of Kidney Diseases 2021;79(2):268-88.e1.2. N Engl J Med 2020 Vol. 385 Issue 19 Pages 9426-3381 Performed By: ###AMMON Holder, RADS ####[facility] [id number] [place], Glucose [Mass/Vol] 84 mg/dL Normal 74-109 [facility] Comment on above: Performed By: #### AMMON Cronin, RADS ####[facility] [id number] [place], Potassium [Moles/Vol] 3.5 mmol/L Normal 3.5-5.0 The [facility] Comment on above: Performed By: #### AMMON Cronin, PHOS ####[facility] [id number] [place], Sodium [Moles/Vol] 141 mmol/L Normal 136-145 The [facility] Comment on above: Performed By: #### AMMON Cronin, PHOS ####S PATHOLOGY [id number] [place], Urea nitrogen [Mass/Vol] 13 mg/dL Normal 7-25 The [facility] Comment on above: Performed By: #### AMMON Cronin, CHI ####S PATHOLOGY [id number] [place], COMPLETE BLOOD COUNT 06-07 Erythrocyte distribution width (RBC) [Ratio] 17.3 % High 11.5-14.5 The [facility] Comment on above: Performed By: #### C BC ####[facility] PATHOLOGY [id number] [place], Hematocrit (Bld) [Volume fraction] 28.2 % Low 41.0-53.0 The [facility] Comment on above: Performed By: #### C BC ####S PATHOLOGY [id number] [place], Hemoglobin (Bld) [Mass/Vol] 9.7 g/dL Low 13.9-16.3 The [facility] Comment on above: Performed By: #### C BC ####S PATHOLOGY [id number] [place], MCH (RBC) [Entitic mass] 32.0 pg Normal 26.0-34.0 The [facility] Comment on above: Performed By: #### C BC ####S PATHOLOGY AMLUWNLBXA4497 [place], MCHC (RBC) [Mass/Vol] 34.3 g/dL Normal 32.0-35.9 [facility] Comment on above: Performed By: #### C BC ####[facility] PATHOLOGY [id number] [place], MCV (RBC) [Entitic vol] 93 fL Normal 80-100 The [facility] Comment on above: Performed By: #### C BC ####[facility] PATHOLOGY [id number] [place], Platelet mean volume (Bld) [Entitic vol] 7.3 fL Low 7.5-11.2 [facility] Comment on above: Performed By: #### C BC ####[facility] PATHOLOGY [id number] [place] [address], Platelets (Bld) [#/Vol] 367 10*3/uL Normal 150-400 [facility] Comment on above: Performed By: #### C BC ####[facility] PATHOLOGY [id number] [place] [address], RBC (Bld) [#/Vol] 3.03 10*6/uL Low 4.50-5.90 The [facility] Comment on above: Performed By: #### C BC ####[facility] PATHOLOGY [id number] [place] [address], WBC (Bld) [#/Vol] 6.7 10*3/uL Normal 4.5-11.5 The [facility] Comment on above: Performed By: #### Rebeca BC ####[facility] PATHOLOGY QLSKADRAVC[address] [place] [address], MAGNESIUMon 06-07-2024 Magnesium [Mass/Vol] 2.1 mg/dL Normal 1.9-2.7 The [facility] Comment on above: Performed By: ###AMMON Holder PHOS ####[facility] PATHOLOGY [id number] [place] [address], PHOSPHORUSon 06-07-2024 Phosphate [Mass/Vol] 2.9 mg/dL Normal 2.5-5.0 [facility] Comment on above: Performed By: ###AMMON Holder PHOS ####[facility] PATHOLOGY [id number] [place], PROTHROMBIN TIME AND INRon 1 INR Coag (PPP) [Relative time] 1.07 {INR} Normal 0.90-1.10 [facility] Comment on above: Performed By: #### P T ####[facility] PATHOLOGY [id number] [place], PT Coag (PPP) [Time] 12.0 s Normal 9.7-12.9 [facility] Comment on above: Performed By: #### P T ####[facility] PATHOLOGY [id number] [place], Progress Noteson 06-07-2024 [employer] Hand Authentication Interface Message Text Normal [facility] [employer] Hand Authentication Interface Message Text Normal The [employer] [facility] US Cheston 06-07-2024 EXAMINATION: US CHES T PLEURAL CAVITY 06/06/2024 11:17 PM CLINICAL HISTORY: Bilateral pleural effusions - please ultrasound both lungs ASSOCIATED DIAGNOSIS: ORDERING PROVIDER: VALERY REYNA TECHNOLOGISTS NOTE: Limited due to pt condition and limited mobility. Difficult to image right due to pt positioning COMPARISON: CT CHEST/ABD/PELVIS W/ CONTRAST 06/06/2024, 3:09 PM TECHNIQUE: Ultrasound real time scan with image documentation of the chest was performed from a posterior approach. FINDINGS: Bilateral pleural effusions are present with associated atelectatic lung. IMPRESSION: Bilateral pleural effusions. MACRO: None Randa Singh M D - 06/07/2024 EXAMINATION: US CHEST PLEURAL CAVITY 06/06/2024 11:17 PM CLINICAL HISTORY: Bilateral pleural effusions - please ultrasound both lungs ASSOCIATED DIAGNOSIS: ORDERING PROVIDER: VALERY REYNA TECHNNINOSKA NOTE: Limited due to pt condition and limited mobility. Difficult to image right due to pt positioning COMPARISON: CT CHEST/ABD/PELVIS W/ CONTRAST 06/06/2024, 3:09 PM TECHNIQUE: Ultrasound real time scan with image documentation of the chest was performed from a posterior approach. FINDINGS: Bilateral pleural effusions are present with associated atelectatic lung. IMPRESSION: Bilateral pleural effusions. MACRO: None [facility] US ChestOrdered By: Randa nascimento on 06-07-2024 [employer] Work Phone: US PLEURAL EFFUSIONon 2023 US PLEURAL EFFUSION Normal [facility] [employer] [facility] 1:1 Interactionon 06-06-2024 [employer] Hand Authentication Interface Message Text Normal The [employer] [facility] BASIC METABOLIC PANELon 10-0 Anion gap [Moles/Vol] 12 mmol/L Normal 10-20 [facility] [employer] [facility] Comment on above: Performed By: #### P HOS, MG, CH8 ####[facility] [id number] [place], Calcium [Mass/Vol] 8.1 mg/dL Low 8.6-10.3 [facility] [facility] Comment on above: Performed By: #### P HOS, MG, CH8 ####[facility] [id number] [place], Chloride [Moles/Vol] 103 mmol/L Normal 98-107 [facility] [employer] [facility] Comment on above: Performed By: #### P HOS, MG, CH8 ####[facility] [id number] [place], CO2 [Moles/Vol] 31 mmol/L Normal 21-31 [facility] [employer] [facility] Comment on above: Performed By: #### P HOS, MG, CH8 ####[facility] KSIEIKKLLN7973 [place], Creatinine [Mass/Vol] 0.51 mg/dL Low 0.70-1.30 [facility] [facility] Comment on above: Performed By: #### P HOS, MG, CH8 ####[facility] [id number] [place], ESTIMATED GFR (CKD-EPI) 101 mL/min/1.73sqm Normal >=60 [facility] [employer] [facility] Comment on above: Result Comment: 2020 CKD EPI Equation using Creatinine without RaceComment: Estimated glomerular filtration rate (eGFR) is calculated without a race coefficient. Values should be interpreted in the context of the patient's full clinical presentation.Reference:1. Rishi Jose, Jorge M, Nic SIVLA, et al.. A Unifying Approach for GFR Estimation: Recommendations of the NKF-ASN Task Force on Reassessing the Inclusion of Race in Diagnosing Kidney Disease. Citizen [place] Journal of Kidney Diseases 2021;79(2):268-88.e1.2. N Engl J Med 1 Vol. 385 Issue 19 Pages 2579-0016 Performed By: #### P GWENDOLYN MG, CH8 ####[facility] CWTEROCNVK4478 [place], Glucose [Mass/Vol] 84 mg/dL Normal 74-109 [facility] Comment on above: Performed By: #### P HOS MG, CH8 ####[facility] [id number] [place], Potassium [Moles/Vol] 3.1 mmol/L Low 3.5-5.0 [facility] Comment on above: Performed By: #### P HOS MG, CH8 ####[facility] SEZKEZKZLA1130 [place], Sodium [Moles/Vol] 143 mmol/L Normal 136-145 [facility] Comment on above: Performed By: #### P HOS MG, CH8 ####[facility] [id number] [place], Urea nitrogen [Mass/Vol] 10 mg/dL Normal 7-25 [facility] Comment on above: Performed By: #### P HOS MG, CH8 ####[facility] NEGAFZBJTX0997 [place], COMPLETE BLOOD COUNTon 06-06 Erythrocyte distribution width (RBC) [Ratio] 17.5 % High 11.5-14.5 [facility] Comment on above: Performed By: #### C BC ####[facility] [id number] [place], Hematocrit (Bld) [Volume fraction] 30.7 % Low 41.0-53.0 [facility] Comment on above: Performed By: #### C BC ####[facility] ACBMINNJJM9407 [place], Hemoglobin (Bld) [Mass/Vol] 10.3 g/dL Low 13.9-16.3 [facility] Comment on above: Performed By: #### C BC ####[facility] PATHOLOGY [id number] [place], MCH (RBC) [Entitic mass] 31.3 pg Normal 26.0-34.0 The [facility] Comment on above: Performed By: #### C BC ####[facility] PATHOLOGY [id number] [place], MCHC (RBC) [Mass/Vol] 33.4 g/dL Normal 32.0-35.9 The [facility] Comment on above: Performed By: #### C BC ####[facility] PATHOLOGY [id number] [place], MCV (RBC) [Entitic vol] 94 fL Normal 80-100 The [facility] Comment on above: Performed By: #### C BC ####[facility] PATHOLOGY [id number] [place], Platelet mean volume (Bld) [Entitic vol] 6.8 fL Low 7.5-11.2 [facility] Comment on above: Performed By: #### C BC ####[facility] PATHOLOGY [id number] [place], Platelets (Bld) [#/Vol] 391 10*3/uL Normal 150-400 The [facility] Comment on above: Performed By: #### C BC ####[facility] PATHOLOGY [id number] [place], RBC (Bld) [#/Vol] 3.28 10*6/uL Low 4.50-5.90 The [facility] Comment on above: Performed By: #### C BC ####[facility] PATHOLOGY [id number] [place], WBC (Bld) [#/Vol] 6.3 10*3/uL Normal 4.5-11.5 The [facility] Comment on above: Performed By: #### C BC ####[facility] PATHOLOGY [id number] [place], [place] CHEST/ABD/PELVIS W/ CONTR Elina 06-06-2024 CT CHEST/ABD/PELVIS W/ CONTRAST Normal [facility] MAGNESIUMon 06-06-2024 Magnesium [Mass/Vol] 1.8 mg/dL Low 1.9-2.7 [facility] Comment on above: Performed By: #### P HOS, MG, CH8 ####[facility] [id number] [place], PHOSPHORUSon 06-06-2024 Phosphate [Mass/Vol] 2.4 mg/dL Low 2.5-5.0 [facility] Comment on above: Performed By: #### P HOS, MG, CH8 ####[facility] [id number] [place], Progress Noteson 06-06-2024 [employer] Hand Authentication Interface Message Text Normal [facility] US Cheston 06-06-2024 Radiology Study observation (narrative) [facility] 1:1 Interactionon 06-05-2024 [employer]ush[employer] Hand Authentication Interface Message Text Normal [facility] BASIC METABOLIC PANELon Anion gap [Moles/Vol] 9 mmol/L Low 10-20 The [facility] Comment on above: Performed By: #### P HOS, MG, CH8 ####[facility] [id number] [place], Calcium [Mass/Vol] 8.3 mg/dL Low 8.6-10.3 [facility] Comment on above: Performed By: #### P HOS, MG, CH8 ####[facility] [id number] [place], Chloride [Moles/Vol] 109 mmol/L High 98-107 The [facility] Comment on above: Performed By: #### P HOS, MG, CH8 ####[facility] [id number] [place], CO2 [Moles/Vol] 26 mmol/L Normal 21-31 [facility] Comment on above: Performed By: #### P HOS, MG, CH8 ####[facility] [id number] [place], Creatinine [Mass/Vol] 0.51 mg/dL Low 0.70-1.30 [facility] Comment on above: Performed By: #### P HOS MG, CH8 ####[facility] TOZTNLGHKS1465 [place], ESTIMATED GFR (CKD-EPI) 101 mL/min/1.73sqm Normal >=60 [facility] Comment on above: Result Comment: 2020 CKD EPI Equation using Creatinine without RaceComment: Estimated glomerular filtration rate (eGFR) is calculated without a race coefficient. Values should be interpreted in the context of the patient's full clinical presentation.Reference:1. Rishi C, Jorge M, Nic SILVA, et al.. A Unifying Approach for GFR Estimation: Recommendations of the NKF-ASN Task Force on Reassessing the Inclusion of Race in Diagnosing Kidney Disease. Citizen [place] Journal of Kidney Diseases 2021;79(2):268-88.e1.2. N Engl J Med 2020 Vol. 385 Issue 19 Pages 5568-0096 Performed By: #### P GWENDOLYN MG, CH8 ####[facility] [id number] [place], Glucose [Mass/Vol] 91 mg/dL Normal 74-109 [facility] Comment on above: Performed By: #### P GWENDOLYN MG, CH8 ####[facility] [id number] [place], Potassium [Moles/Vol] 3.1 mmol/L Low 3.5-5.0 [facility] Comment on above: Performed By: #### P HOS MG, CH8 ####[facility] [id number] [place], Sodium [Moles/Vol] 141 mmol/L Normal 136-145 [facility] Comment on above: Performed By: #### P HOS MG, CH8 ####[facility] [id number] [place], Urea nitrogen [Mass/Vol] 12 mg/dL Normal 7-25 The [facility] [facility] Comment on above: Performed By: #### P HOS MG, CH8 ####[facility] [id number] [place], [place], COMPLETE BLOOD COUNTon 06-05 Erythrocyte distribution width (RBC) [Ratio] 17.7 % High 11.5-14.5 The [facility] Comment on above: Performed By: #### C BC ####[facility] PATHOLOGY [id number] [place], [place], Hematocrit (Bld) [Volume fraction] 30.6 % Low 41.0-53.0 [facility] Comment on above: Performed By: #### C BC ####[facility] PATHOLOGY [id number] [place] [address], Hemoglobin (Bld) [Mass/Vol] 10.2 g/dL Low 13.9-16.3 [facility] Comment on above: Performed By: #### C BC ####[facility] PATHOLOGY [id number] [place] [address], MCH (RBC) [Entitic mass] 31.4 pg Normal 26.0-34.0 [facility] Comment on above: Performed By: #### C BC ####[facility] PATHOLOGY [id number] [place] [address], MCHC (RBC) [Mass/Vol] 33.4 g/dL Normal 32.0-35.9 [facility] Comment on above: Performed By: #### C BC ####[facility] PATHOLOGY [id number] [place] [address], MCV (RBC) [Entitic vol] 94 fL Normal 80-100 The [facility] Comment on above: Performed By: #### C BC ####[facility] PATHOLOGY [id number] [place] [address], Platelet mean volume (Bld) [Entitic vol] 6.7 fL Low 7.5-11.2 The [facility] Comment on above: Performed By: #### C BC ####[facility] PATHOLOGY [id number] [place] [address], Platelets (Bld) [#/Vol] 427 10*3/uL High 150-400 [facility] Comment on above: Performed By: #### C BC ####[facility] PATHOLOGY [id number] [place] [address], RBC (Bld) [#/Vol] 3.27 10*6/uL Low 4.50-5.90 [facility] Comment on above: Performed By: #### C BC ####S PATHOLOGY [id number] [place], [place], WBC (Bld) [#/Vol] 5.7 10*3/uL Normal 4.5-11.5 [facility] Comment on above: Performed By: #### C BC ####[facility] [id number] [place], [place], MAGNESIUMon 06-05-2024 Magnesium [Mass/Vol] 1.9 mg/dL Normal 1.9-2.7 [facility] Comment on above: Performed By: #### P HOS, MG, CH8 ####S PATHOLOGY [id number] [place], [place], PHOSPHORUSon 06-05-2024 Phosphate [Mass/Vol] 2.5 mg/dL Normal 2.5-5.0 [facility] Comment on above: Performed By: #### P HOS, MG, CH8 ####S PATHOLOGY [id number] [place], [place], Progress Noteson 06-05-2024 [employer] Hand Authentication Interface Message Text Normal [facility] C[employer] Hand Authentication Interface Message Text Normal The [facility] Cush[employer] Hand Authentication Interface Message Text Normal [facility] XR ABDOMEN AP 1 VIEWon 06-05 XR ABDOMEN AP 1 VIEW Normal [facility] XR CHEST AP OR PA 1 VIEWon 1 XR CHEST AP OR PA 1 VIEW Normal [facility] XR Chest Single viewon 06-05 EXAMINATION: XR CHES T AP OR PA 1 VIEW 06/05/2024 09:27 AM CLINICAL HISTORY: s/p tracheostomy ASSOCIATED DIAGNOSIS: s/p tracheostomy ORDERING PROVIDER: VALERY REYNA COMPARISON: XR CHEST AP OR PA 1 VIEW 06/04/2024, 6:13 AM FINDINGS: Lines, tubes, and devices: Interval tracheostomy with the tip in thoracic trachea. Lungs and pleura: Blunting of bilateral costophrenic angles right greater than left with adjacent heterogeneous opacities likely representing atelectasis. No appreciable pneumothorax. Cardiomediastinal silhouette: Normal cardiomediastinal silhouette. Musculoskeletal: No significant interval change including right-sided displaced rib fractures some of which have plate and screw fixations in place. IMPRESSION: Interval tracheostomy with the tip in thoracic trachea. Otherwise, unchanged pulmonary findings, as detailed RADIOLOGY Vignesh Higuera MD - 06/05/2024 EXAMINATION: XR CHEST AP OR PA 1 VIEW 06/05/2024 09:27 AM CLINICAL HISTORY: s/p tracheostomy ASSOCIATED DIAGNOSIS: s/p tracheostomy ORDERING PROVIDER: VALERY REYNA COMPARISON: XR CHEST AP OR PA 1 VIEW 06/04/2024, 6:13 AM FINDINGS: Lines, tubes, and devices: Interval tracheostomy with the tip in thoracic trachea. Lungs and pleura: Blunting of bilateral costophrenic angles right greater than left with adjacent heterogeneous opacities likely representing atelectasis. No appreciable pneumothorax. Cardiomediastinal silhouette: Normal cardiomediastinal silhouette. Musculoskeletal: No significant interval change including right-sided displaced rib fractures some of which have plate and screw fixations in place. IMPRESSION: Interval tracheostomy with the tip in thoracic trachea. Otherwise, unchanged pulmonary findings, as detailed [facility] Radiology Study observation (narrative) [employer] XR Chest Single viewOrdered By: Vignesh Higuera on 06-05-2024 [employer] Work Phone: 1:1 Interactionon 06-04-2024 Cushion Maker Hand Authentication Interface Message Text Normal [facility] Anesthesia Postprocedure Yoselin luationon 06-04-2024 [employer]ushion Maker Hand Authentication Interface Message Text Normal [facility] Anesthesia Preprocedure Eval uationon 06-04-2024 [employer]ushion Maker Hand Authentication Interface Message Text Normal [facility] Anesthesia Transfer Of Careo n 06-04-2024 [employer]ush[employer] Hand Authentication Interface Message Text Normal [facility] BASIC METABOLIC PANELon 10-0 Anion gap [Moles/Vol] 11 mmol/L Normal 10-20 [facility] Comment on above: Performed By: #### C H8, PHOS, MG ####[facility] [id number] [place] [address], Calcium [Mass/Vol] 7.7 mg/dL Low 8.6-10.3 [facility] Comment on above: Performed By: #### CHI Rich MG ####[facility] [id number] [place], Chloride [Moles/Vol] 108 mmol/L High 98-107 [facility] Comment on above: Performed By: #### CHI Rich MG ####[facility] [id number] [place], CO2 [Moles/Vol] 23 mmol/L Normal 21-31 [facility] Comment on above: Performed By: #### CHI Rich MG ####[facility] [id number] [place], Creatinine [Mass/Vol] 0.54 mg/dL Low 0.70-1.30 [facility] Comment on above: Performed By: #### CHI Rich MG ####[facility] [id number] [place], ESTIMATED GFR (CKD-EPI) 99 mL/min/1.73sqm Normal >=60 [facility] Comment on above: Result Comment: 2020 CKD EPI Equation using Creatinine without RaceComment: Estimated glomerular filtration rate (eGFR) is calculated without a race coefficient. Values should be interpreted in the context of the patient's full clinical presentation.Reference:1. Rishi C, Jorge M, Nic SILVA, et al.. A Unifying Approach for GFR Estimation: Recommendations of the NKF-ASN Task Force on Reassessing the Inclusion of Race in Diagnosing Kidney Disease. Citizen [place] Journal of Kidney Diseases 2021;79(2):268-88.e1.2. N Engl J Med 2020 Vol. 385 Issue 19 Pages 6052-0951 Performed By: #### CHI Rich MG ####[facility] [id number] [place], Glucose [Mass/Vol] 87 mg/dL Normal 74-109 [facility] Comment on above: Performed By: #### C H8, PHOS, MG ####[facility] PATH[facility] [id number] [place], Potassium [Moles/Vol] 3.2 mmol/L Low 3.5-5.0 The [facility] Comment on above: Performed By: #### C H8, PHOS, MG ####S PATHOLOGY [id number] [place], Sodium [Moles/Vol] 139 mmol/L Normal 136-145 The [facility] Comment on above: Performed By: #### C H8, PHOS, MG ####[facility] PATHOLOGY [id number] [place], Urea nitrogen [Mass/Vol] 17 mg/dL Normal 7-25 The [facility] Comment on above: Performed By: #### Rebeca H8, CHI MG ####[facility] PATHOLOGY [id number] [place], BLOOD GAS, ARTERIALon 2023 CR JOSEPH 0.3 mmol/L Normal -2.0-3.0 The [facility] Comment on above: Performed By: #### C R BGA ####[facility] PATHOLOGY [id number] [place], [place], CR PCO2 32.7 mm Hg Low 35.0-45.0 The [facility] Comment on above: Performed By: #### C R BGA ####[facility] PATHOLOGY [id number] [place], [place], CR PHA 7.466 High 7.350-7.450 The [facility] Comment on above: Performed By: #### C R BGA ####S PATHOLOGY [id number] [place], [place], CR PO2 113 mm Hg High 80-100 The [facility] Comment on above: Performed By: #### C R BGA ####S PATHOLOGY [id number] [place], FIO2 (CATEGORY) 35% Normal The [facility] Comment on above: Performed By: #### C R BGA ####S PATHOLOGY [id number] [place], HCO3 (Bld) [Moles/Vol] 23 mmol/L Normal 21-28 [facility] Comment on above: Performed By: #### C R BGA ####[facility] PATHOLOGY [id number] [place] [address], MODE Vent Normal [facility] Comment on above: Performed By: #### C R BGA ####[facility] PATHOLOGY [id number] [place], Oxygen saturation in Blood 99.0 % Normal 95.0-99.0 [facility] Comment on above: Performed By: #### C R BGA ####[facility] PATHOLOGY [id number] [place] [address], Blood Attestationon 06-04-20 [employer] Hand Authentication Interface Message Text Normal [facility] COMPLETE BLOOD COUNTon 06-04 Erythrocyte distribution width (RBC) [Ratio] 17.4 % High 11.5-14.5 [facility] Comment on above: Performed By: #### C BC ####[facility] PATHOLOGY [id number] [place] [address], Hematocrit (Bld) [Volume fraction] 27.7 % Low 41.0-53.0 [facility] Comment on above: Performed By: #### C BC ####[facility] PATHOLOGY [id number] [place], Hemoglobin (Bld) [Mass/Vol] 9.1 g/dL Low 13.9-16.3 [facility] Comment on above: Performed By: #### C BC ####[facility] PATHOLOGY [id number] [place] [address], MCH (RBC) [Entitic mass] 30.7 pg Normal 26.0-34.0 [facility] Comment on above: Performed By: #### C BC ####S PATHOLOGY [id number] [place] [address], MCHC (RBC) [Mass/Vol] 32.9 g/dL Normal 32.0-35.9 [facility] Comment on above: Performed By: #### C BC ####S PATHOLOGY [id number] [place], MCV (RBC) [Entitic vol] 93 fL Normal 80-100 [facility] Comment on above: Performed By: #### C BC ####S PATHOLOGY [id number] [place], Platelet mean volume (Bld) [Entitic vol] 6.8 fL Low 7.5-11.2 [facility] Comment on above: Performed By: #### C BC ####[facility] PATHOLOGY [id number] [place], Platelets (Bld) [#/Vol] 398 10*3/uL Normal 150-400 [facility] Comment on above: Performed By: #### C BC ####[facility] PATHOLOGY [id number] [place], RBC (Bld) [#/Vol] 2.97 10*6/uL Low 4.50-5.90 [facility] Comment on above: Performed By: #### C BC ####[facility] PATHOLOGY [id number] [place], WBC (Bld) [#/Vol] 6.0 10*3/uL Normal 4.5-11.5 [facility] Comment on above: Performed By: #### C BC ####[facility] PATHOLOGY [id number] [place], MAGNESIUMon 06-04-2024 Magnesium [Mass/Vol] 2.0 mg/dL Normal 1.9-2.7 [facility] Comment on above: Performed By: #### C H8, PHOS, MG ####[facility] PATHOLOGY [id number] [place], [place], OP Noteon 06-04-2024 Cushion Maker Hand Authentication Interface Message Text Normal [facility] OR Nursingon 06-04-2024 Cushion Maker Hand Authentication Interface Message Text 11:27 Hand-off report called to Jena Toure RN on . Normal [facility] PHOSPHORUSon 06-04-2024 Phosphate [Mass/Vol] 4.4 mg/dL Normal 2.5-5.0 The [facility] Comment on above: Performed By: #### K , PHOS ####[facility] [id number] [place], Phosphate [Mass/Vol] 1.7 mg/dL Low 2.5-5.0 [facility] Comment on above: Performed By: #### C H8, PHOS, MG ####[facility] [id number] [place], POTASSIUMon 06-04-2024 Potassium [Moles/Vol] 3.7 mmol/L Normal 3.5-5.0 [facility] Comment on above: Performed By: #### K , PHOS ####[facility] PATH[facility] [id number] [place], [place], Progress Noteson 06-04-2024 [employer]ushion Maker Hand Authentication Interface Message Text Social Work ICU Note Attempted to reach pt's Ilana Michelle at [phone] to discuss LTACH planning. No answer. SW will follow-up as able. Katie Puri, DARIEL, RK Normal The [employer] [facility] Cushion Maker Hand Authentication Interface Message Text Normal [facility] XR CHEST AP OR PA 1 VIEWon 1 XR CHEST AP OR PA 1 VIEW Normal [facility] XR Chest Single viewon 06-04 EXAMINATION: XR CHES T AP OR PA 1 VIEW 06/04/2024 06:12 AM CLINICAL HISTORY: Endotracheal tube assessment ASSOCIATED DIAGNOSIS: Endotracheal tube assessment ORDERING PROVIDER: VALERY RYENA TECHNOLOGISTS NOTE: COMPARISON: XR CHEST AP OR PA 1 VIEW 06/03/2024, 6:42 AM FINDINGS: Lines, tubes, and devices: An endotracheal tube is present in good position above the vivien. A feeding tube is present which traverses the diaphragm with tip not included in the field of view. Lungs and pleura: Increased haziness is seen in bilateral mid and lower zones, unchanged and is likely due to atelectasis and/or pleural effusion. Cardiomediastinal silhouette: Stable appearance of cardiomediastinal silhouette. Musculoskeletal: Multiple rib fractures are again seen on the right side and postsurgical changes of internal fixation by plates and screws are seen in 4 clips. IMPRESSION: Findings as described above. No significant interval change from the prior study. MACRO: None RADIOLOGY Trevin Laurent MD - 06/04/2024 EXAMINATION: XR CHEST AP OR PA 1 VIEW 06/04/2024 06:12 AM CLINICAL HISTORY: Endotracheal tube assessment ASSOCIATED DIAGNOSIS: Endotracheal tube assessment ORDERING PROVIDER: VALERY REYNA TECHNOLOGISTS NOTE: COMPARISON: XR CHEST AP OR PA 1 VIEW 06/03/2024, 6:42 AM FINDINGS: Lines, tubes, and devices: An endotracheal tube is present in good position above the vivien. A feeding tube is present which traverses the diaphragm with tip not included in the field of view. Lungs and pleura: Increased haziness is seen in bilateral mid and lower zones, unchanged and is likely due to atelectasis and/or pleural effusion. Cardiomediastinal silhouette: Stable appearance of cardiomediastinal silhouette. Musculoskeletal: Multiple rib fractures are again seen on the right side and postsurgical changes of internal fixation by plates and screws are seen in 4 clips. IMPRESSION: Findings as described above. No significant interval change from the prior study. MACRO: None [employer] Radiology Study observation (narrative) [employer] XR Chest Single viewOrdered By: Trevin Laurent on 06-04-2024 [employer] Work Phone: 1:1 Interactionon 06-03-2024 Cushion Maker Hand Authentication Interface Message Text Normal The [employer] [facility] BASIC METABOLIC PANELon 10-0 Anion gap [Moles/Vol] 9 mmol/L Low 10-20 The [employer] [facility] Comment on above: Performed By: #### C Zahira MG, PHOS ####[facility] [id number] [facility] [place], Calcium [Mass/Vol] 7.9 mg/dL Low 8.6-10.3 The [employer] [facility] Comment on above: Performed By: #### Rebeca Rodriges MG PHOS ####[facility] [id number] [employer] [place], [place], Chloride [Moles/Vol] 104 mmol/L Normal 98-107 The [employer] [facility] Comment on above: Performed By: #### MG Layla, PHOS ####[facility] PATH[facility] [id number] [place], CO2 [Moles/Vol] 27 mmol/L Normal 21-31 [facility] Comment on above: Performed By: #### MG Layla, PHOS ####[facility] PATH[facility] [id number] [place], Creatinine [Mass/Vol] 0.73 mg/dL Normal 0.70-1.30 [facility] Comment on above: Performed By: #### Rebeca Rodriges MG, PHOS ####[facility] [id number] [place], ESTIMATED GFR (CKD-EPI) 90 mL/min/1.73sqm Normal >=60 [facility] Comment on above: Result Comment: 2020 CKD EPI Equation using Creatinine without RaceComment: Estimated glomerular filtration rate (eGFR) is calculated without a race coefficient. Values should be interpreted in the context of the patient's full clinical presentation.Reference:1. Rishi C, Jorge M, Nic SILVA, et al.. A Unifying Approach for GFR Estimation: Recommendations of the NKF-ASN Task Force on Reassessing the Inclusion of Race in Diagnosing Kidney Disease. Citizen Of [place] Journal of Kidney Diseases 2021;79(2):268-88.e1.2. N Engl J Med 2020 Vol. 385 Issue 19 Pages 8211-2587 Performed By: #### MG Layla, PHOS ####[facility] PATH[facility] [id number] [place], Glucose [Mass/Vol] 99 mg/dL Normal 74-109 [facility] Comment on above: Performed By: #### Rebeca Rodriges MG, PHOS ####[facility] [id number] [place], Potassium [Moles/Vol] 3.3 mmol/L Low 3.5-5.0 [facility] Comment on above: Performed By: #### Rebeca Rodriges MG, PHOS ####[facility] PATH[facility] [id number] [place], Sodium [Moles/Vol] 137 mmol/L Normal 136-145 The [facility] Comment on above: Performed By: #### C H8, MG, PHOS ####[facility] PATHOLOGY [id number] [place], Urea nitrogen [Mass/Vol] 21 mg/dL Normal 7-25 The [facility] Comment on above: Performed By: #### C H8, MG, PHOS ####[facility] PATHOLOGY [id number] [place], BLOOD GAS, ARTERIALon 2023 CR % O2 SAT > 100.0 High 95.0-99.0 [facility] Comment on above: Performed By: #### C R BGA ####[facility] PATHOLOGY [id number] [place] [address], CR JOSEPH 2.8 mmol/L Normal -2.0-3.0 [facility] Comment on above: Performed By: #### C R BGA ####[facility] PATHOLOGY [id number] [place] [address], CR PCO2 43.8 mm Hg Normal 35.0-45.0 The [facility] Comment on above: Performed By: #### C R BGA ####[facility] PATHOLOGY [id number] [place] [address], CR PHA 7.410 Normal 7.350-7.450 The [facility] Comment on above: Performed By: #### C R BGA ####[facility] PATHOLOGY [id number] [place], CR PO2 191 mm Hg High 80-100 The [facility] Comment on above: Performed By: #### C R BGA ####[facility] PATHOLOGY [id number] [place], FIO2 (CATEGORY) 40% Normal [facility] Comment on above: Performed By: #### C R BGA ####[facility] [id number] [place], HCO3 (Bld) [Moles/Vol] 27 mmol/L Normal 21-28 [facility] Comment on above: Performed By: #### C R BGA ####[facility] [id number] [place], MODE Vent Normal [facility] Comment on above: Performed By: #### C R BGA ####[facility] PATHOLOGY [id number] [place], COMPLETE BLOOD COUNTon 06-03 Erythrocyte distribution width (RBC) [Ratio] 17.5 % High 11.5-14.5 The [facility] Comment on above: Performed By: #### C BC ####[facility] PATHOLOGY [id number] [place] [address], Hematocrit (Bld) [Volume fraction] 27.0 % Low 41.0-53.0 [facility] Comment on above: Performed By: #### C BC ####[facility] PATHOLOGY [id number] [place] [address], Hemoglobin (Bld) [Mass/Vol] 9.2 g/dL Low 13.9-16.3 The [facility] Comment on above: Performed By: #### C BC ####[facility] PATHOLOGY [id number] [place] [address], MCH (RBC) [Entitic mass] 31.7 pg Normal 26.0-34.0 The [facility] Comment on above: Performed By: #### C BC ####[facility] PATHOLOGY [id number] [place] [address], MCHC (RBC) [Mass/Vol] 34.1 g/dL Normal 32.0-35.9 The [facility] Comment on above: Performed By: #### C BC ####[facility] PATHOLOGY [id number] [place] [address], MCV (RBC) [Entitic vol] 93 fL Normal 80-100 The [facility] Comment on above: Performed By: #### C BC ####[facility] PATHOLOGY [id number] [place], Platelet mean volume (Bld) [Entitic vol] 7.1 fL Low 7.5-11.2 The [facility] Comment on above: Performed By: #### C BC ####[facility] [id number] [place], Platelets (Bld) [#/Vol] 396 10*3/uL Normal 150-400 [facility] Comment on above: Performed By: #### C BC ####S PATHOLOGY [id number] [place], RBC (Bld) [#/Vol] 2.90 10*6/uL Low 4.50-5.90 [facility] Comment on above: Performed By: #### C BC ####[facility] PATHOLOGY [id number] [place], WBC (Bld) [#/Vol] 6.6 10*3/uL Normal 4.5-11.5 [facility] Comment on above: Performed By: #### C BC ####S PATHOLOGY [id number] [place], [place], Consultson 06-03-2024 [employer] Hand Authentication Interface Message Text Normal [facility] [employer] Hand Authentication Interface Message Text Normal [facility] MAGNESIUMon 06-03-2024 Magnesium [Mass/Vol] 2.1 mg/dL Normal 1.9-2.7 [facility] Comment on above: Performed By: #### Rebeca H8, MG, PHOS ####S PATHOLOGY [id number] [place], PHOSPHORUSon 06-03-2024 Phosphate [Mass/Vol] 3.1 mg/dL Normal 2.5-5.0 [facility] Comment on above: Performed By: #### Rebeca H8, MG, PHOS ####S PATHOLOGY [id number] [place], [place], Progress Noteson 06-03-2024 [employer]ush[employer] Maker Hand Authentication Interface Message Text Normal [facility] XR CHEST AP OR PA 1 VIEWon 1 XR CHEST AP OR PA 1 VIEW Normal [facility] XR Chest Single viewon 06-03 EXAMINATION: XR CHES T AP OR PA 1 VIEW 06/03/2024 06:41 AM CLINICAL HISTORY: Endotracheal tube assessment ASSOCIATED DIAGNOSIS: Endotracheal tube assessment ORDERING PROVIDER: VALERY REYNA TECHNOLOGISTS NOTE: COMPARISON: XR CHEST AP OR PA 1 VIEW 06/02/2024, 6:22 AM FINDINGS: Lines, tubes, and devices: Endotracheal tube tip projects about 2.7 cm Above the vivien. Enteric tube courses below the diaphragm, presumably on the limits of the exam. Lungs and pleura: Worsening aeration with gradient bibasilar opacities and heterogeneous perihilar opacities. No sizable pneumothorax. Cardiomediastinal silhouette: The cardiomediastinal silhouette is prominent in size and likely exaggerated by AP technique. Musculoskeletal: Multiple right rib plates and screws are redemonstrated. IMPRESSION: Apparent worsened aeration with effusions/loculated right hemothorax and adjacent atelectasis. Change may be accounted for by differences in patient positioning. MACRO: None RADIOLOGY Clare Choe MD - 06/03/2024 EXAMINATION: XR CHEST AP OR PA 1 VIEW 06/03/2024 06:41 AM CLINICAL HISTORY: Endotracheal tube assessment ASSOCIATED DIAGNOSIS: Endotracheal tube assessment ORDERING PROVIDER: VALERY REYNA TECHNOLOGISTS NOTE: COMPARISON: XR CHEST AP OR PA 1 VIEW 06/02/2024, 6:22 AM FINDINGS: Lines, tubes, and devices: Endotracheal tube tip projects about 2.7 cm Above the vivien. Enteric tube courses below the diaphragm, presumably on the limits of the exam. Lungs and pleura: Worsening aeration with gradient bibasilar opacities and heterogeneous perihilar opacities. No sizable pneumothorax. Cardiomediastinal silhouette: The cardiomediastinal silhouette is prominent in size and likely exaggerated by AP technique. Musculoskeletal: Multiple right rib plates and screws are redemonstrated. IMPRESSION: Apparent worsened aeration with effusions/loculated right hemothorax and adjacent atelectasis. Change may be accounted for by differences in patient positioning. MACRO: None [facility] Radiology Study observation (narrative) [facility] [employer] XR Chest Single viewOrdered By: Clare Choe on 06-03-2024 [employer] Work Phone: 1:1 Interactionon 06-02-2024 [employer] Hand Authentication Interface Message Text Normal [facility] BASIC METABOLIC PANELon 10-0 Anion gap [Moles/Vol] 13 mmol/L Normal 10-20 [facility] Comment on above: Performed By: #### C H8, CRR ####[facility] [id number] [place], [place], Calcium [Mass/Vol] 7.8 mg/dL Low 8.6-10.3 [facility] Comment on above: Performed By: #### C H8, CRR ####[facility] [id number] [place], Chloride [Moles/Vol] 100 mmol/L Normal 98-107 [facility] Comment on above: Performed By: #### C H8, CRR ####[facility] [id number] [place], CO2 [Moles/Vol] 33 mmol/L High 21-31 [facility] Comment on above: Performed By: #### C H8, CRR ####[facility] [id number] [place], Creatinine [Mass/Vol] 0.71 mg/dL Normal 0.70-1.30 [facility] Comment on above: Performed By: #### C H8, CRR ####[facility] [id number] [place], ESTIMATED GFR (CKD-EPI) 91 mL/min/1.73sqm Normal >=60 [facility] Comment on above: Result Comment: 2020 CKD EPI Equation using Creatinine without RaceComment: Estimated glomerular filtration rate (eGFR) is calculated without a race coefficient. Values should be interpreted in the context of the patient's full clinical presentation.Reference:1. Rishi C, Jorge M, Nic SILVA, et al.. A Unifying Approach for GFR Estimation: Recommendations of the NKF-ASN Task Force on Reassessing the Inclusion of Race in Diagnosing Kidney Disease. Citizen [place] Journal of Kidney Diseases 2021;79(2):268-88.e1.2. N Engl J Med 2020 Vol. 385 Issue 19 Pages 3825-6105 Performed By: #### C H8, CRR ####[facility] [id number] [place], Glucose [Mass/Vol] 114 mg/dL High 74-109 The [facility] Comment on above: Performed By: #### Rebeca H8, CRR ####[facility] [id number] [place], Potassium [Moles/Vol] 3.7 mmol/L Normal 3.5-5.0 [facility] Comment on above: Performed By: #### Rebeca H8, CRR ####[facility] [id number] [place], Sodium [Moles/Vol] 142 mmol/L Normal 136-145 [facility] Comment on above: Performed By: #### Rebeca H8, CRR ####[facility] [id number] [place], Urea nitrogen [Mass/Vol] 17 mg/dL Normal 7-25 [facility] Comment on above: Performed By: #### Rebeca Mckeon8, CRR ####[facility] [id number] [place], Anion gap [Moles/Vol] 13 mmol/L Normal 10-20 [facility] Comment on above: Performed By: #### Rebeca Rodriges MG, PHOS ####[facility] [id number] [place], Calcium [Mass/Vol] 7.9 mg/dL Low 8.6-10.3 [facility] Comment on above: Performed By: #### Rebeca Rodriges MG, PHOS ####[facility] [id number] [place], Chloride [Moles/Vol] 99 mmol/L Normal 98-107 The [facility] Comment on above: Performed By: #### Rebeca Rodriges MG, PHOS ####[facility] [id number] [place], CO2 [Moles/Vol] 36 mmol/L High 21-31 The [facility] Comment on above: Performed By: #### Rebeca HIvis, MG, PHOS ####[facility] [id number] [place], Creatinine [Mass/Vol] 0.67 mg/dL Low 0.70-1.30 [facility] Comment on above: Performed By: #### MG Rich PHOS ####[facility] [id number] [place], ESTIMATED GFR (CKD-EPI) 93 mL/min/1.73sqm Normal >=60 [facility] Comment on above: Result Comment: 2020 CKD EPI Equation using Creatinine without RaceComment: Estimated glomerular filtration rate (eGFR) is calculated without a race coefficient. Values should be interpreted in the context of the patient's full clinical presentation.Reference:1. Rishi C, Jorge M, Nic [place], et al.. A Unifying Approach for GFR Estimation: Recommendations of the NKF-ASN Task Force on Reassessing the Inclusion of Race in Diagnosing Kidney Disease. Citizen [place] Journal of Kidney Diseases 2021;79(2):268-88.e1.2. N Engl J Med 1 Vol. 385 Issue 19 Pages 1487-0819 Performed By: #### MG Rich PHOS ####[facility] [id number] [place], Glucose [Mass/Vol] 137 mg/dL High 74-109 [facility] Comment on above: Performed By: #### MG Rich PHOS ####[facility] [id number] [place], Potassium [Moles/Vol] 4.1 mmol/L Normal 3.5-5.0 [facility] Comment on above: Performed By: #### MG Rich PHOS ####[facility] [id number] [place], Sodium [Moles/Vol] 144 mmol/L Normal 136-145 [facility] Comment on above: Performed By: ###MG Matos PHOS ####[facility] [id number] [place], Urea nitrogen [Mass/Vol] 15 mg/dL Normal 7-25 [facility] Comment on above: Performed By: #### MG Rich PHOS ####[facility] [id number] [place], BLOOD GAS, ARTERIALon 2023 CR JOSEPH 4.0 mmol/L High -2.0-3.0 [facility] Comment on above: Performed By: #### C R BGA ####[facility] PATHOLOGY [id number] [place], CR PCO2 54.2 mm Hg High 35.0-45.0 [facility] Comment on above: Performed By: #### C R BGA ####[facility] PATHOLOGY [id number] [place], CR PHA 7.359 Normal 7.350-7.450 [facility] Comment on above: Performed By: #### C R BGA ####[facility] PATHOLOGY [id number] [place], CR PO2 149 mm Hg High 80-100 [facility] Comment on above: Performed By: #### C R BGA ####[facility] PATHOLOGY [id number] [place] [address], FIO2 (CATEGORY) 50% Normal [facility] Comment on above: Performed By: #### C R BGA ####[facility] PATHOLOGY [id number] [place], HCO3 (Bld) [Moles/Vol] 30 mmol/L High 21-28 [facility] Comment on above: Performed By: #### C R BGA ####[facility] PATHOLOGY [id number] [place], MODE Vent Normal [facility] Comment on above: Performed By: #### C R BGA ####[facility] PATHOLOGY [id number] [place], Oxygen saturation in Blood 99.4 % High 95.0-99.0 [facility] Comment on above: Performed By: #### C R BGA ####S PATHOLOGY [id number] [place], CR JOSEPH 11.9 mmol/L High -2.0-3.0 [facility] Comment on above: Performed By: #### C R BGA ####[facility] PATHOLOGY [id number] [place], CR PCO2 45.7 mm Hg High 35.0-45.0 [facility] Comment on above: Performed By: #### C R BGA ####[facility] PATHOLOGY [id number] [place], CR PHA > 7.500 High 7.350-7.450 [facility] Comment on above: Performed By: #### C R BGA ####[facility] PATHOLOGY [id number] [place], CR PO2 144 mm Hg High 80-100 [facility] Comment on above: Performed By: #### C R BGA ####[facility] PATHOLOGY [id number] [place], FIO2 (CATEGORY) 50% Normal [facility] Comment on above: Performed By: #### C R BGA ####[facility] PATHOLOGY [id number] [place] [address], HCO3 (Bld) [Moles/Vol] 36 mmol/L High 21-28 [facility] Comment on above: Performed By: #### C R BGA ####[facility] PATHOLOGY [id number] [place] [address], MODE Vent Normal [facility] Comment on above: Performed By: #### C R BGA ####[facility] PATHOLOGY [id number] [place], Oxygen saturation in Blood 100.0 % High 95.0-99.0 The [facility] Comment on above: Performed By: #### C R BGA ####[facility] PATHOLOGY [id number] [place], COMPLETE BLOOD COUNTon 06-02 Erythrocyte distribution width (RBC) [Ratio] 18.2 % High 11.5-14.5 The [facility] Comment on above: Performed By: #### C BC ####[facility] PATHOLOGY [id number] [place] [address], Hematocrit (Bld) [Volume fraction] 26.6 % Low 41.0-53.0 The [facility] Comment on above: Performed By: #### C BC ####[facility] PATHOLOGY [id number] [place], Hemoglobin (Bld) [Mass/Vol] 9.2 g/dL Low 13.9-16.3 The [facility] Comment on above: Performed By: #### C BC ####[facility] PATHOLOGY [id number] [place], MCH (RBC) [Entitic mass] 31.2 pg Normal 26.0-34.0 The [facility] Comment on above: Performed By: #### C BC ####[facility] PATHOLOGY [id number] [place] [address], MCHC (RBC) [Mass/Vol] 34.7 g/dL Normal 32.0-35.9 The [facility] Comment on above: Performed By: #### C BC ####[facility] PATHOLOGY [id number] [place] [address], MCV (RBC) [Entitic vol] 90 fL Normal 80-100 [facility] Comment on above: Performed By: #### C BC ####[facility] PATHOLOGY [id number] [place] [address], Platelet mean volume (Bld) [Entitic vol] 6.3 fL Low 7.5-11.2 The [facility] Comment on above: Performed By: #### C BC ####[facility] PATHOLOGY [id number] [place], Platelets (Bld) [#/Vol] 409 10*3/uL High 150-400 The [facility] Comment on above: Performed By: #### C BC ####[facility] PATHOLOGY [id number] [place], RBC (Bld) [#/Vol] 2.96 10*6/uL Low 4.50-5.90 The [facility] Comment on above: Performed By: #### C BC ####[facility] PATHOLOGY [id number] [place], WBC (Bld) [#/Vol] 7.8 10*3/uL Normal 4.5-11.5 [facility] Comment on above: Performed By: #### C BC ####[facility] PATHOLOGY [id number] [place], CORTISOL RANDOMon 06-02-2024 CORTISOL, SERUM 2.7 ug/dL Normal [facility] Comment on above: Performed By: #### Rebeca H8, CRR ####[facility] PATHOLOGY [id number] [place], Consultson 06-02-2024 [employer] Hand Authentication Interface Message Text Normal [facility] MAGNESIUMon 06-02-2024 Magnesium [Mass/Vol] 1.9 mg/dL Normal 1.9-2.7 [facility] Comment on above: Performed By: #### C H8, MG, PHOS ####S PATHOLOGY [id number] [place], PHOSPHORUSon 06-02-2024 Phosphate [Mass/Vol] 3.5 mg/dL Normal 2.5-5.0 [facility] Comment on above: Performed By: #### Rebeca H8, MG, PHOS ####[facility] PATHOLOGY [id number] [place], Progress Noteson 06-02-2024 [employer]ush[employer] Maker Hand Authentication Interface Message Text Normal [facility] Cushion Maker Hand Authentication Interface Message Text Normal [facility] XR CHEST AP OR PA 1 VIEWon 1 XR CHEST AP OR PA 1 VIEW Normal [facility] XR Chest Single viewon 06-02 EXAMINATION: XR CHES T AP OR PA 1 VIEW 06/02/2024 06:22 AM CLINICAL HISTORY: Intubation ASSOCIATED DIAGNOSIS: Intubation ORDERING PROVIDER: CAILIN [employer]TRAN TECHNOLOGISTS NOTE: COMPARISON: XR CHEST AP OR PA 1 VIEW 06/01/2024, 9:10 AM XR CHEST AP OR PA 1 VIEW 06/01/2024, 9:09 AM XR CHEST AP OR PA 1 VIEW 06/01/2024, 8:23 AM FINDINGS: Lines, tubes, and devices: An endotracheal tube is present in good position above the vivien. An orogastric tube is present which traverses the diaphragm with tip not included in the field of view. Lungs and pleura: The left lung is clear. Right pleural thickening, possible small right pleural effusion is noted. Cardiomediastinal silhouette: Normal cardiomediastinal silhouette. Musculoskeletal: Multiple orthopedic plates with multiple right rib fractures appear grossly stable. IMPRESSION: Right pleural thickening and possible small right pleural effusion. No pneumothorax. Life-support devices stable. MACRO: None RADIOLOGY Micah Lynne MD - 06/02/2024 EXAMINATION: XR CHEST AP OR PA 1 VIEW 06/02/2024 06:22 AM CLINICAL HISTORY: Intubation ASSOCIATED DIAGNOSIS: Intubation ORDERING PROVIDER: CAILIN [employer] TECHNOLOGISTS NOTE: COMPARISON: XR CHEST AP OR PA 1 VIEW 06/01/2024, 9:10 AM XR CHEST AP OR PA 1 VIEW 06/01/2024, 9:09 AM XR CHEST AP OR PA 1 VIEW 06/01/2024, 8:23 AM FINDINGS: Lines, tubes, and devices: An endotracheal tube is present in good position above the vivien. An orogastric tube is present which traverses the diaphragm with tip not included in the field of view. Lungs and pleura: The left lung is clear. Right pleural thickening, possible small right pleural effusion is noted. Cardiomediastinal silhouette: Normal cardiomediastinal silhouette. Musculoskeletal: Multiple orthopedic plates with multiple right rib fractures appear grossly stable. IMPRESSION: Right pleural thickening and possible small right pleural effusion. No pneumothorax. Life-support devices stable. MACRO: None [facility] Rad[facility] Study observation (narrative) [employer] XR Chest Single viewOrdered By: Micah Lynne on 06-02-2024 [employer] Work Phone: 1:1 Interactionon 06-01-2024 [employer]ushion Maker Hand Authentication Interface Message Text Normal [facility] BASIC METABOLIC PANELon 10-0 Anion gap [Moles/Vol] 11 mmol/L Normal 10-20 [facility] Comment on above: Performed By: #### C H8 ####[facility] [id number] [facility] [place], [address] Calcium [Mass/Vol] 7.9 mg/dL Low 8.6-10.3 [facility] Comment on above: Performed By: #### C H8 ####[facility] [id number] [place], Chloride [Moles/Vol] 96 mmol/L Low 98-107 [facility] Comment on above: Performed By: #### C H8 ####[facility] [id number] [place], CO2 [Moles/Vol] 41 mmol/L High 21-31 [facility] Comment on above: Performed By: #### C H8 ####[facility] [id number] [place], Creatinine [Mass/Vol] 0.63 mg/dL Low 0.70-1.30 [facility] Comment on above: Performed By: #### C H8 ####S PATHOLOGY [id number] [place], ESTIMATED GFR (CKD-EPI) 94 mL/min/1.73sqm Normal >=60 [facility] Comment on above: Result Comment: 2020 CKD EPI Equation using Creatinine without RaceComment: Estimated glomerular filtration rate (eGFR) is calculated without a race coefficient. Values should be interpreted in the context of the patient's full clinical presentation.Reference:1. Rishi C, Jorge M, Nic SILVA, et al.. A Unifying Approach for GFR Estimation: Recommendations of the NKF-ASN Task Force on Reassessing the Inclusion of Race in Diagnosing Kidney Disease. Citizen [place] Journal of Kidney Diseases 2021;79(2):268-88.e1.2. N Engl J Med 2020 Vol. 385 Issue 19 Pages 2524-3445 Performed By: #### C H8 ####[facility] ZXYGEDOGUC7988 [place], Glucose [Mass/Vol] 123 mg/dL High 74-109 [facility] Comment on above: Performed By: #### C H8 ####[facility] IYFGIMJTCG4198 [place], Potassium [Moles/Vol] 3.3 mmol/L Low 3.5-5.0 [facility] Comment on above: Performed By: #### C H8 ####S PATHOLOGY RETHVUNBYY4223 [place], Sodium [Moles/Vol] 145 mmol/L Normal 136-145 [facility] Comment on above: Performed By: #### C H8 ####S PATHOLOGY VJNUFRYHSI8377 [place], Urea nitrogen [Mass/Vol] 15 mg/dL Normal 7-25 [facility] Comment on above: Performed By: #### C H8 ####[facility] PATHOLOG[facility] [id number] [place], ANION GAP Normal [facility] Comment on above: Result Comment: Unab le to calculate due to elevated CO2 Performed By: #### C H8 ####[facility] PATHOLOGY [id number] [place], Calcium [Mass/Vol] 8.1 mg/dL Low 8.6-10.3 [facility] Comment on above: Performed By: #### C H8 ####[facility] PATHOLOGY [id number] [place], Chloride [Moles/Vol] 95 mmol/L Low 98-107 [facility] Comment on above: Performed By: #### C H8 ####S PATHOLOGY NHRJBPEKYH5166 [place], CO2 [Moles/Vol] mmol/L High 21-31 [facility] Comment on above: Performed By: #### Rebeca H8 ####S PATHOLOGY ZCSIJGBACR6471 [place], Creatinine [Mass/Vol] 0.63 mg/dL Low 0.70-1.30 [facility] Comment on above: Performed By: #### C H8 ####S PATHOLOGY GITZNPDTUC8774 [place], ESTIMATED GFR (CKD-EPI) 94 mL/min/1.73sqm Normal >=60 [facility] Comment on above: Result Comment: 2020 CKD EPI Equation using Creatinine without RaceComment: Estimated glomerular filtration rate (eGFR) is calculated without a race coefficient. Values should be interpreted in the context of the patient's full clinical presentation.Reference:1. Rishi C, Jorge M, Nic [place], et al.. A Unifying Approach for GFR Estimation: Recommendations of the NKF-ASN Task Force on Reassessing the Inclusion of Race in Diagnosing Kidney Disease. Citizen Of [place] Journal of Kidney Diseases 2021;79(2):268-88.e1.2. N Engl J Med 1 Vol. 385 Issue 19 Pages 8460-6619 Performed By: #### C H8 ####[facility] [id number] [place], Glucose [Mass/Vol] 213 mg/dL High 74-109 [facility] Comment on above: Performed By: #### C H8 ####S PATHOLOGY ZRVYLZPZTZ3868 [place], Potassium [Moles/Vol] 2.8 mmol/L Low 3.5-5.0 [facility] Comment on above: Performed By: #### C H8 ####S PATHOLOGY ESITHZPCGN0237 [place], Sodium [Moles/Vol] 147 mmol/L High 136-145 [facility] Comment on above: Performed By: #### C H8 ####[facility] ZJLJRPRCUA4138 [place], Urea nitrogen [Mass/Vol] 17 mg/dL Normal 7-25 [facility] Comment on above: Performed By: #### C H8 ####[facility] NQSVNJPCPN8381 [place], ANION GAP Normal [facility] Comment on above: Result Comment: Anio n Gap cannot be calculated when CO2 is >45. Performed By: #### C H8 ####[facility] PZRGAKHAGQ6539 [place], Calcium [Mass/Vol] 8.7 mg/dL Normal 8.6-10.3 [facility] Comment on above: Performed By: #### C H8 ####[facility] TSLKXEKUVE4402 [place], Chloride [Moles/Vol] 98 mmol/L Normal 98-107 [facility] Comment on above: Performed By: #### C H8 ####S PATHOLOGY ZIHAMKZOFP4970 [place], CO2 [Moles/Vol] mmol/L High 21-31 [facility] Comment on above: Performed By: #### C H8 ####S PATHOLOGY TGYXPQURSY4661 [place], Creatinine [Mass/Vol] 0.64 mg/dL Low 0.70-1.30 [facility] Comment on above: Performed By: #### C H8 ####S PATHOLOGY [id number] [place], ESTIMATED GFR (CKD-EPI) 94 mL/min/1.73sqm Normal >=60 [facility] Comment on above: Result Comment: 2020 CKD EPI Equation using Creatinine without RaceComment: Estimated glomerular filtration rate (eGFR) is calculated without a race coefficient. Values should be interpreted in the context of the patient's full clinical presentation.Reference:1. Rishi C, Jorge M, Nic [place], et al.. A Unifying Approach for GFR Estimation: Recommendations of the NKF-ASN Task Force on Reassessing the Inclusion of Race in Diagnosing Kidney Disease. Citizen Of [place] Journal of Kidney Diseases 2021;79(2):268-88.e1.2. N Engl J Med 2020 Vol. 385 Issue 19 Pages 7129-3440 Performed By: #### C H8 ####S PATHOLOGY [id number] [place], Glucose [Mass/Vol] 99 mg/dL Normal 74-109 [facility] Comment on above: Performed By: #### C H8 ####S PATHOLOGY TZNQKYMZMH6852 [place], Potassium [Moles/Vol] 3.3 mmol/L Low 3.5-5.0 [facility] Comment on above: Performed By: #### C H8 ####[facility] [id number] [place], Sodium [Moles/Vol] 158 mmol/L Critically high 136-145 T [facility] Comment on above: Performed By: #### C H8 ####S PATHOLOGY IICZBKGQXW8082 [place], Urea nitrogen [Mass/Vol] 17 mg/dL Normal 7-25 [facility] Comment on above: Performed By: #### C H8 ####[facility] PATHOLOG[facility] [id number] [place], ANION GAP Normal [facility] Comment on above: Result Comment: Unab le to calculate the anion gap when the CO2 is >45 mmol/L. Performed By: #### C H8 ####[facility] PATHOLOGY [id number] [place], Calcium [Mass/Vol] 8.5 mg/dL Low 8.6-10.3 [facility] Comment on above: Performed By: #### C H8 ####[facility] PATHOLOGY [id number] [place], Chloride [Moles/Vol] 99 mmol/L Normal 98-107 [facility] Comment on above: Performed By: #### C H8 ####[facility] PATHOLOGY [id number] [place], CO2 [Moles/Vol] mmol/L High 21-31 The [facility] Comment on above: Performed By: #### C H8 ####S PATHOLOGY [id number] [place], Creatinine [Mass/Vol] 0.68 mg/dL Low 0.70-1.30 The [facility] Comment on above: Performed By: #### C H8 ####[facility] PATHOLOG[facility] [id number] [place], ESTIMATED GFR (CKD-EPI) 92 mL/min/1.73sqm Normal >=60 [facility] Comment on above: Result Comment: 2020 CKD EPI Equation using Creatinine without RaceComment: Estimated glomerular filtration rate (eGFR) is calculated without a race coefficient. Values should be interpreted in the context of the patient's full clinical presentation.Reference:1. Rishi C, Jorge M, Nic SILVA, et al.. A Unifying Approach for GFR Estimation: Recommendations of the NKF-ASN Task Force on Reassessing the Inclusion of Race in Diagnosing Kidney Disease. Citizen Of [place] Journal of Kidney Diseases 2021;79(2):268-88.e1.2. N Engl J Med 2020 Vol. 385 Issue 19 Pages 7321-8005 Performed By: #### C H8 ####[facility] [id number] [place], [place], Glucose [Mass/Vol] 101 mg/dL Normal 74-109 [facility] Comment on above: Performed By: #### C H8 ####[facility] [id number] [place], Potassium [Moles/Vol] 3.1 mmol/L Low 3.5-5.0 [facility] Comment on above: Performed By: #### C H8 ####[facility] [id number] [place], Sodium [Moles/Vol] 156 mmol/L Critically high 136-145 T [facility] Comment on above: Performed By: #### C H8 ####[facility] OFIIQDUVSH1005 [place], Urea nitrogen [Mass/Vol] 17 mg/dL Normal 7-25 [facility] Comment on above: Performed By: #### C H8 ####[facility] [id number] [place], ANION GAP Normal [facility] Comment on above: Result Comment: Unab le to calculate the anion gap when CO2 is >45 mmol/L. Performed By: #### CHI Cronin, CH8 ####[facility] WKOUTMNVJK7780 [place], Calcium [Mass/Vol] 8.7 mg/dL Normal 8.6-10.3 [facility] Comment on above: Performed By: #### CHI Cronin, CH8 ####[facility] KMHWPHEQOX7065 [place], Chloride [Moles/Vol] 99 mmol/L Normal 98-107 The [facility] Comment on above: Performed By: #### CHI Cronin CH8 ####[facility] [id number] [place], CO2 [Moles/Vol] mmol/L High 21-31 [facility] Comment on above: Performed By: #### CHI Cronin CH8 ####[facility] BTAHLBNKUU7770 [place], Creatinine [Mass/Vol] 0.72 mg/dL Normal 0.70-1.30 [facility] Comment on above: Performed By: #### CHI Cronin CH8 ####[facility] [id number] [place], ESTIMATED GFR (CKD-EPI) 91 mL/min/1.73sqm Normal >=60 [facility] Comment on above: Result Comment: 2020 CKD EPI Equation using Creatinine without RaceComment: Estimated glomerular filtration rate (eGFR) is calculated without a race coefficient. Values should be interpreted in the context of the patient's full clinical presentation.Reference:1. Rishi C, Jorge M, Nic SILVA, et al.. A Unifying Approach for GFR Estimation: Recommendations of the NKF-ASN Task Force on Reassessing the Inclusion of Race in Diagnosing Kidney Disease. Citizen Of [place] Journal of Kidney Diseases 2021;79(2):268-88.e1.2. N Engl J Med 2020 Vol. 385 Issue 19 Pages 0611-4203 Performed By: #### CHI Cronin CH8 ####[facility] UAKHFGIKKX1350 [place], Glucose [Mass/Vol] 99 mg/dL Normal 74-109 The [facility] Comment on above: Performed By: #### CHI Cronin CH8 ####[facility] OQEPWANOLG3897 [place], Potassium [Moles/Vol] 3.4 mmol/L Low 3.5-5.0 [facility] Comment on above: Performed By: #### CHI Cronin CH8 ####[facility] QZRONIRRSY8882 [place], Sodium [Moles/Vol] 156 mmol/L Critically high 136-145 T [facility] Comment on above: Performed By: #### CHI Cronin CH8 ####[facility] PATHOLOGY [id number] [place], Urea nitrogen [Mass/Vol] 17 mg/dL Normal 7-25 [facility] Comment on above: Performed By: #### CHI Cronin CH8 ####[facility] PATHOLOGY [id number] [place], BLOOD GAS, ARTERIALon 2023 CR JOSEPH 16.8 mmol/L High -2.0-3.0 [facility] Comment on above: Performed By: #### C R BGA ####[facility] PATHOLOGY [id number] [place] [address], CR PCO2 43.7 mm Hg Normal 35.0-45.0 [facility] Comment on above: Performed By: #### C R BGA ####[facility] PATHOLOGY [id number] [place], CR PHA > 7.500 High 7.350-7.450 [facility] Comment on above: Performed By: #### C R BGA ####[facility] PATHOLOGY YWEHAGIQYV0801 [place], CR PO2 160 mm Hg High 80-100 [facility] Comment on above: Performed By: #### C R BGA ####[facility] PATHOLOGY HRGIGOPJNH5367 [place], FIO2 (CATEGORY) 60% Normal [facility] Comment on above: Performed By: #### C R BGA ####S PATHOLOGY AUUZPVQESX7443 [place], HCO3 (Bld) [Moles/Vol] 41 mmol/L High 21-28 [facility] Comment on above: Performed By: #### C R BGA ####[facility] PATHOLOGY [id number] [place], MODE Vent Normal [facility] Comment on above: Performed By: #### C R BGA ####[facility] PATHOLOGY [id number] [place], Oxygen saturation in Blood 99.9 % High 95.0-99.0 [facility] Comment on above: Performed By: #### C R BGA ####[facility] PATHOLOGY [id number] [place], CR JOSEPH 24.3 mmol/L High -2.0-3.0 [facility] Comment on above: Performed By: #### C R BGA ####[facility] PATHOLOGY [id number] [place], CR HCO3 > 45 High 21-28 [facility] Comment on above: Performed By: #### C R BGA ####[facility] PATHOLOGY [id number] [place] [address], CR PCO2 68.5 mm Hg Critically high 35.0-45.0 [facility] Comment on above: Performed By: #### C R BGA ####[facility] PATHOLOGY [id number] [place] [address], CR PHA 7.487 High 7.350-7.450 [facility] Comment on above: Performed By: #### C R BGA ####[facility] PATHOLOGY UQMJODAXJY64[address] [place] [address], CR PO2 71 mm Hg Low 80-100 [facility] Comment on above: Performed By: #### C R BGA ####[facility] PATHOLOGY [id number] [place] [address], FIO2 (CATEGORY) 50% Normal [facility] Comment on above: Performed By: #### C R BGA ####[facility] PATHOLOGY [id number] [place], MODE BIPAP Normal [facility] Comment on above: Performed By: #### C R BGA ####[facility] PATHOLOGY [id number] [place], Oxygen saturation in Blood 95.3 % Normal 95.0-99.0 [facility] Comment on above: Performed By: #### C R BGA ####[facility] PATHOLOGY [id number] [place], CR JOSEPH 23.5 mmol/L High -2.0-3.0 [facility] Comment on above: Performed By: #### C R BGA ####[facility] PATHOLOGY CMIADJRTRZ64[address] [place] [address], CR HCO3 > 45 High 21-28 [facility] Comment on above: Performed By: #### C R BGA ####[facility] PATHOLOGY [id number] [place] [address], CR PCO2 68.5 mm Hg Critically high 35.0-45.0 [facility] Comment on above: Performed By: #### C R BGA ####[facility] PATHOLOGY SVCHPGKPJW1502[address] [place] [address], CR PHA 7.480 High 7.350-7.450 [facility] Comment on above: Performed By: #### C R BGA ####[facility] PATHOLOGY [id number] [place] [address], CR PO2 85 mm Hg Normal 80-100 [facility] Comment on above: Performed By: #### C R BGA ####[facility] PATHOLOGY HMHGOPFOUL33[address] [place] [address], FIO2 (CATEGORY) 60% Normal [facility] Comment on above: Performed By: #### C R BGA ####[facility] PATHOLOGY [id number] [place] [address], MODE BIPAP Normal [facility] Comment on above: Performed By: #### C R BGA ####[facility] PATHOLOGY [id number] [place] [address], Oxygen saturation in Blood 97.2 % Normal 95.0-99.0 [facility] Comment on above: Performed By: #### C R BGA ####[facility] PATHOLOGY [id number] [place] [address], CR JOSEPH 21.8 mmol/L High -2.0-3.0 [facility] Comment on above: Performed By: #### C R BGA ####[facility] RIOCXLYOJY9146 [place], CR HCO3 > 45 High 21-28 [facility] Comment on above: Performed By: #### C R BGA ####[facility] PATHOLOGY [id number] [place], CR PCO2 67.6 mm Hg Critically high 35.0-45.0 [facility] Comment on above: Performed By: #### C R BGA ####[facility] PATHOLOGY [id number] [place] [address], CR PHA 7.469 High 7.350-7.450 [facility] Comment on above: Performed By: #### C R BGA ####[facility] PATHOLOGY PPEIMFITMR0016[address] [place] [address], CR PO2 98 mm Hg Normal 80-100 [facility] Comment on above: Performed By: #### C R BGA ####[facility] PATHOLOGY [id number] [place] [address], FIO2 (CATEGORY) 60% Normal [facility] Comment on above: Performed By: #### C R BGA ####[facility] PATHOLOGY [id number] [place] [address], MODE BIPAP Normal [facility] Comment on above: Performed By: #### C R BGA ####[facility] PATHOLOGY [id number] [place], Oxygen saturation in Blood 97.9 % Normal 95.0-99.0 [facility] Comment on above: Performed By: #### C R BGA ####[facility] PATHOLOGY SILOPKZYHY85[address] [place] [address], COMPLETE BLOOD COUNTon 06-01 Erythrocyte distribution width (RBC) [Ratio] 16.3 % High 11.5-14.5 [facility] Comment on above: Performed By: #### C BC ####[facility] PATHOLOGY [id number] [place], Hematocrit (Bld) [Volume fraction] 21.9 % Low 41.0-53.0 [facility] Comment on above: Performed By: #### C BC ####[facility] PATHOLOGY [id number] [place], Hemoglobin (Bld) [Mass/Vol] 7.1 g/dL Low 13.9-16.3 [facility] Comment on above: Performed By: #### C BC ####[facility] PATHOLOGY [id number] [place], MCH (RBC) [Entitic mass] 32.0 pg Normal 26.0-34.0 [facility] Comment on above: Performed By: #### C BC ####[facility] PATHOLOGY [id number] [place], MCHC (RBC) [Mass/Vol] 32.5 g/dL Normal 32.0-35.9 [facility] Comment on above: Performed By: #### C BC ####[facility] PATHOLOGY [id number] [place], MCV (RBC) [Entitic vol] 98 fL Normal 80-100 [facility] Comment on above: Performed By: #### C BC ####[facility] PATHOLOG[facility] [id number] [place], Platelet mean volume (Bld) [Entitic vol] 6.2 fL Low 7.5-11.2 [facility] Comment on above: Performed By: #### C BC ####[facility] PATHOLOG[facility] [id number] [place], Platelets (Bld) [#/Vol] 449 10*3/uL High 150-400 [facility] Comment on above: Performed By: #### C BC ####[facility] PATHOLOGY [id number] [place], RBC (Bld) [#/Vol] 2.23 10*6/uL Low 4.50-5.90 [facility] Comment on above: Performed By: #### C BC ####[facility] PATHOLOGY [id number] [place], WBC (Bld) [#/Vol] 7.8 10*3/uL Normal 4.5-11.5 [facility] Comment on above: Performed By: #### C BC ####[facility] PATHOLOGY [id number] [place], Erythrocyte distribution width (RBC) [Ratio] 16.8 % High 11.5-14.5 [facility] Comment on above: Performed By: #### C BC ####[facility] PATHOLOG[facility] [id number] [place], Hematocrit (Bld) [Volume fraction] 21.3 % Low 41.0-53.0 [facility] Comment on above: Performed By: #### C BC ####[facility] PATHOLOG[facility] [id number] [place], Hemoglobin (Bld) [Mass/Vol] 7.1 g/dL Low 13.9-16.3 [facility] Comment on above: Performed By: #### C BC ####[facility] PATHOLOG[facility] [id number] [place], MCH (RBC) [Entitic mass] 32.6 pg Normal 26.0-34.0 [facility] Comment on above: Performed By: #### C BC ####[facility] PATHOLOG[facility] [id number] [place], MCHC (RBC) [Mass/Vol] 33.2 g/dL Normal 32.0-35.9 [facility] Comment on above: Performed By: #### C BC ####[facility] PATHOLOG[facility] [id number] [place], MCV (RBC) [Entitic vol] 98 fL Normal 80-100 [facility] Comment on above: Performed By: #### C BC ####[facility] PATHOLOG[facility] [id number] [place], Platelet mean volume (Bld) [Entitic vol] 6.4 fL Low 7.5-11.2 [facility] Comment on above: Performed By: #### C BC ####[facility] PATHOLOG[facility] [id number] [place], Platelets (Bld) [#/Vol] 451 10*3/uL High 150-400 The [facility] Comment on above: Performed By: #### C BC ####[facility] PATHOLOGY [id number] [place], RBC (Bld) [#/Vol] 2.17 10*6/uL Low 4.50-5.90 The [facility] Comment on above: Performed By: #### C BC ####[facility] PATHOLOGY [id number] [place], WBC (Bld) [#/Vol] 8.2 10*3/uL Normal 4.5-11.5 The [facility] Comment on above: Performed By: #### C BC ####[facility] PATHOLOGY [id number] [place], Erythrocyte distribution width (RBC) [Ratio] 16.7 % High 11.5-14.5 [facility] Comment on above: Performed By: #### C BC ####[facility] PATHOLOG[facility] [id number] [place], Hematocrit (Bld) [Volume fraction] 26.2 % Low 41.0-53.0 The [facility] Comment on above: Performed By: #### C BC ####[facility] PATHOLOGY [id number] [place], Hemoglobin (Bld) [Mass/Vol] 8.6 g/dL Low 13.9-16.3 The [facility] Comment on above: Performed By: #### C BC ####[facility] PATHOLOGY [id number] [place], MCH (RBC) [Entitic mass] 31.8 pg Normal 26.0-34.0 The [facility] Comment on above: Performed By: #### C BC ####[facility] PATHOLOG[facility] [id number] [place], MCHC (RBC) [Mass/Vol] 32.9 g/dL Normal 32.0-35.9 The [facility] Comment on above: Performed By: #### C BC ####[facility] PATHOLOGY [id number] [place], MCV (RBC) [Entitic vol] 97 fL Normal 80-100 [facility] Comment on above: Performed By: #### C BC ####S PATHOLOGY [id number] [place], Platelet mean volume (Bld) [Entitic vol] 6.2 fL Low 7.5-11.2 [facility] Comment on above: Performed By: #### C BC ####S PATHOLOGY LHEQCMGGDU4947 [place], Platelets (Bld) [#/Vol] 565 10*3/uL High 150-400 [facility] Comment on above: Performed By: #### C BC ####[facility] PATHOLOG[facility] [id number] [place], RBC (Bld) [#/Vol] 2.71 10*6/uL Low 4.50-5.90 [facility] Comment on above: Performed By: #### C BC ####[facility] PATHOLOG[facility] [id number] [place], WBC (Bld) [#/Vol] 14.0 10*3/uL High 4.5-11.5 [facility] Comment on above: Performed By: #### C BC ####[facility] PATHOLOG[facility] [id number] [place], CT CHEST/ABD/PELVIS W/ CONTR Elina 06-01-2024 CT CHEST/ABD/PELVIS W/ CONTRAST Normal [facility] CTA CHEST PULMONARY EMBOLISM W/on 06-01-2024 CTA CHEST PULMONARY EMBOLISM W/ Normal [facility] Consultson 06-01-2024 [employer]ushion [employer] Hand Authentication Interface Message Text Normal [facility] Cushion [employer] Hand Authentication Interface Message Text Physical therapy Attempted to see. Pt just re-intubated and RNs asked to defer treatment until BP is stable Will attempt at later time/date Sharyn Waldron, PT Normal [facility] MAGNESIUMon 06-01-2024 Magnesium [Mass/Vol] 2.4 mg/dL Normal 1.9-2.7 [facility] Comment on above: Performed By: #### CHI Cronin, CH8 ####S PATHOLOGY [id number] [place], MRSA SCREENon 06-01-2024 MRSA DNA JASMINA+probe Ql (Unsp spec) CMR: No methicillin resistant Staphylococcus aureus isolated. Normal No methicillin resistant Staphylococcus aureus isolated. [facility] Comment on above: Performed By: #### C MR ####[facility] Sbyphjsyh1356 [place], [place] PHOSPHORUSon 06-01-2024 Phosphate [Mass/Vol] 3.2 mg/dL Normal 2.5-5.0 [facility] Comment on above: Performed By: #### M CHI Meade, CH8 ####S PATHOLOGY [id number] [place], Procedureson 06-01-2024 [employer]ushion [employer] Hand Authentication Interface Message Text Normal The [employer] [facility] Progress Noteson 06-01-2024 Cushion Maker Hand Authentication Interface Message Text Normal [facility] Cushion [employer] Hand Authentication Interface Message Text Normal [facility] Cushion [employer] Hand Authentication Interface Message Text 0845-Patient being prepared for intubation at the bedside. 0846-30 mg etomidate IV push given, 100 mg rocuronium IV push given. 0847-patient being bagged with 100% O2. 0848- #8.0 @ 24 lip, positive color change noted, bilateral breath sounds heard. Normal The [employer] Cushion Maker Hand Authentication Interface Message Text Dr. Mills notified of critical PCO2 value of 68.5. Dr. Mills read back critical results. New orders not received. Normal [facility] Cushion Maker Hand Authentication Interface Message Text Normal [facility] RED BLOOD CELL COMPONENTon 1 BB ORDER ITEM Product status info to follow Normal [facility] Comment on above: Performed By: #### R ELLIE ####S PATHOLOGY [id number] [place], BB ORDER ITEM Product status info to follow Normal [facility] Comment on above: Performed By: #### R ELLIE ####S PATHOLOGY [id number] [place], RED BLOOD CELL UNIT STATUSon 06-01-2024 BLOOD PRODUCT CODE [id number] Normal [facility] Comment on above: Performed By: #### R BU ####S PATHOLOGY [id number] [place], BLOOD PRODUCT DESCRIPTION Red Blood Cells Normal The [facility] Comment on above: Performed By: #### R BU ####[facility] EKIMUZKEUW2432 [place], BLOOD PRODUCT STATUS Transfused Normal The [facility] Comment on above: Performed By: #### R BU ####[facility] [id number] [place], BLOOD PRODUCT UNIT INFO [id number] Normal The [facility] Comment on above: Performed By: #### R BU ####[facility] NNKSEITTJW2967 [place], BLOOD PRODUCT UNIT TYPE 6200 Normal The [facility] Comment on above: Result Comment: A Po s Performed By: #### R BU ####[facility] HZPNHBMNNG1019 [place], CROSSMATCH INTERPRETATION Compatible (E) Normal The [facility] Comment on above: Performed By: #### R BU ####[facility] RAVCAZMLLO7181 [place], BLOOD PRODUCT CODE [id number] Normal The [facility] Comment on above: Performed By: #### R BU ####[facility] MAGXIZOOSM2639 [place], BLOOD PRODUCT DESCRIPTION Red Blood Cells Normal The [facility] Comment on above: Performed By: #### R BU ####[facility] [id number] [place], BLOOD PRODUCT STATUS Transfused Normal The [facility] Comment on above: Performed By: #### R BU ####[facility] [id number] [place], BLOOD PRODUCT UNIT INFO [id number] Normal [facility] Comment on above: Performed By: #### R BU ####[facility] [id number] [place], BLOOD PRODUCT UNIT TYPE 6200 Normal The [facility] Comment on above: Result Comment: A Po s Performed By: #### R BU ####[facility] [id number] [place], CROSSMATCH INTERPRETATION Compatible (E) Normal [facility] Comment on above: Performed By: #### R BU ####S PATHOLOGY GYCVHHHYLF7534 [place], TYPE AND SCREENon 06-01-2024 ABO and Rh group Nom (Bld) Blood group A Rh(D) positive Normal [facility] Comment on above: Performed By: #### T S ####[facility] KMAFYKDLXR8499 [place], ABSC INT Negative Normal [facility] Comment on above: Performed By: #### T S ####[facility] PATHOLOG[facility] [id number] [place], XR ABDOMEN AP 1 VIEWon 06-01 XR ABDOMEN AP 1 VIEW Normal [facility] XR Abdomen APon 06-01-2024 EXAMINATION: XR ABDO MEN AP 1 VIEW 06/01/2024 06:34 AM CLINICAL HISTORY: monitoring large bowel dilation ASSOCIATED DIAGNOSIS: ORDERING PROVIDER: KATIE DIAZ NOTE: COMPARISON: XR ABDOMEN AP 1 VIEW 05/31/2024, 8:20 AM FINDINGS: Nasogastric tube in place. The tip projects over mid epigastrium. IVC filter in place. Multiple orthopedic hardware in the right ribs.Surgical clips in the soft tissues of the right chest. Elevation of the right hemidiaphragm. Right greater than left basilar opacities with blunting of the costophrenic angles compatible with underlying pleural fluid collections. Lumbar levoscoliosis. Decreased colonic distention. Bowel gas pattern is nonspecific with mild dilation of the transverse colon. Redemonstrated pelvic fractures. A Maher catheter projects over the pelvis IMPRESSION: Decreased colonic distention with nonspecific bowel gas pattern. Exam is otherwise limited due to supine patient positioning. If there is concern for obstruction, CT can be performed. MACRO: None RADIOLOGY Clare Choe MD - 06/01/2024 EXAMINATION: XR ABDOMEN AP 1 VIEW 06/01/2024 06:34 AM CLINICAL HISTORY: monitoring large bowel dilation ASSOCIATED DIAGNOSIS: ORDERING PROVIDER: KATIE DIAZ NOTE: COMPARISON: XR ABDOMEN AP 1 VIEW 05/31/2024, 8:20 AM FINDINGS: Nasogastric tube in place. The tip projects over mid epigastrium. IVC filter in place. Multiple orthopedic hardware in the right ribs.Surgical clips in the soft tissues of the right chest. Elevation of the right hemidiaphragm. Right greater than left basilar opacities with blunting of the costophrenic angles compatible with underlying pleural fluid collections. Lumbar levoscoliosis. Decreased colonic distention. Bowel gas pattern is nonspecific with mild dilation of the transverse colon. Redemonstrated pelvic fractures. A Maher catheter projects over the pelvis IMPRESSION: Decreased colonic distention with nonspecific bowel gas pattern. Exam is otherwise limited due to supine patient positioning. If there is concern for obstruction, CT can be performed. MACRO: None [facility] Study observation (narrative) [facility] XR Abdomen APOrdered By: Simone Choe on 06-01-2024 [facility] Work Phone: XR CHEST AP OR PA 1 VIEWon 1 XR CHEST AP OR PA 1 VIEW Normal [facility] XR CHEST AP OR PA 1 VIEW Normal [facility] XR CHEST AP OR PA 1 VIEW Normal [facility] BASIC METABOLIC PANELon 05-04 Anion gap [Moles/Vol] 12 mmol/L Normal 10-20 [facility] Comment on above: Performed By: #### CHI Cronin CH8 ####[facility] [id number] [place], [place], Calcium [Mass/Vol] 8.6 mg/dL Normal 8.6-10.3 [facility] Comment on above: Performed By: #### CHI Cronin CH8 ####[facility]fon[facility] PATHOLOGY [id number] [place], [place], Chloride [Moles/Vol] 99 mmol/L Normal 98-107 [facility] Comment on above: Performed By: #### CHI Cronin CH8 ####[facility] PATHOLOG[facility] IZKVYZUVYE0699 [place], CO2 [Moles/Vol] 40 mmol/L High 21-31 [facility] Comment on above: Performed By: #### CHI Cronin CH8 ####[facility]fon[facility] PATHOLOGY AYAZVIPBUU3070 [place], Creatinine [Mass/Vol] 0.77 mg/dL Normal 0.70-1.30 [facility] Comment on above: Performed By: #### CHI Cronin CH8 ####[facility] PATHOLOGY BSLEMZEQKT8739 [place], ESTIMATED GFR (CKD-EPI) 89 mL/min/1.73sqm Normal >=60 The [facility] Comment on above: Result Comment: 2020 CKD EPI Equation using Creatinine without RaceComment: Estimated glomerular filtration rate (eGFR) is calculated without a race coefficient. Values should be interpreted in the context of the patient's full clinical presentation.Reference:1. Rishi Jose, Jorge M, Nic SILVA, et al.. A Unifying Approach for GFR Estimation: Recommendations of the NKF-ASN Task Force on Reassessing the Inclusion of Race in Diagnosing Kidney Disease. Citizen [place] Journal of Kidney Diseases 2021;79(2):268-88.e1.2. N Engl J Med 2020 Vol. 385 Issue 19 Pages 0542-4215 Performed By: #### CHI Cronin CH8 ####[facility] PATH[facility] POEMNNTVRH2803 [place], Glucose [Mass/Vol] 113 mg/dL High 74-109 [facility] Comment on above: Performed By: #### CHI Cronin CH8 ####[facility] PATH[facility] CFWIFDQEGP4745 [place], Potassium [Moles/Vol] 3.1 mmol/L Low 3.5-5.0 [facility] Comment on above: Performed By: #### CHI Cronin CH8 ####[facility] PATHOLOGY [id number] [place], Sodium [Moles/Vol] 148 mmol/L High 136-145 [facility] Comment on above: Performed By: #### CHI Cronin CH8 ####[facility] PATHOLOG[facility] ECYUQPANCG8557 [place], Urea nitrogen [Mass/Vol] 18 mg/dL Normal 7-25 [facility] Comment on above: Performed By: #### M Halina, PHOS, CH8 ####S PATHOLOGY ANVCAPUYRP1944 [place], BLOOD GAS, ARTERIALon 2023 CR JOSEPH 14.8 mmol/L High -2.0-3.0 [facility] Comment on above: Performed By: #### C R BGA ####S PATHOLOGY TUQNNFPMHI9912 [place], [place], CR PCO2 52.9 mm Hg High 35.0-45.0 [facility] Comment on above: Performed By: #### C R BGA ####[facility] PATHOLOGY [id number] [place] [address], CR PHA 7.490 High 7.350-7.450 [facility] Comment on above: Performed By: #### C R BGA ####[facility] PATHOLOGY IVCHVVVUFC[address] [place] [address], CR PO2 66 mm Hg Low 80-100 The [facility] Comment on above: Performed By: #### C R BGA ####[facility] PATHOLOGY HNFVORBKTK88[address] [place] [address], FIO2 (CATEGORY) 60% Normal [facility] Comment on above: Performed By: #### C R BGA ####[facility] PATHOLOGY [id number] [place], HCO3 (Bld) [Moles/Vol] 40 mmol/L High 21-28 [facility] Comment on above: Performed By: #### C R BGA ####S PATHOLOGY SYDOKRZSXZ8122 [place], MODE Nasal [place] Normal [facility] Comment on above: Result Comment: 60L Performed By: #### C R BGA ####S PATHOLOGY YMPYIFNSMF5277 [place], Oxygen saturation in Blood 94.2 % Low 95.0-99.0 [facility] Comment on above: Performed By: #### C R BGA ####[facility] IJKMNHNKYM1333[address] [place] [address], CR JOSEPH 15.2 mmol/L High -2.0-3.0 [facility] Comment on above: Performed By: #### C R BGA ####[facility] PATHOLOGY UIZSYMSTZI[address] [place] [address], CR PCO2 56.5 mm Hg High 35.0-45.0 [facility] Comment on above: Performed By: #### C R BGA ####[facility] PATHOLOGY CHXLNZSJCB[address] [place] [address], CR PHA 7.471 High 7.350-7.450 [facility] Comment on above: Performed By: #### C R BGA ####[facility] PATHOLOGY PMONCBLLYW[address] [place] [address], CR PO2 193 mm Hg High 80-100 [facility] Comment on above: Performed By: #### C R BGA ####[facility] PATHOLOGY [id number] [place] [address], FIO2 (CATEGORY) 70% Normal [facility] Comment on above: Performed By: #### C R BGA ####[facility] PATHOLOGY UETEBLUYMQ2613[address] [place] [address], HCO3 (Bld) [Moles/Vol] 41 mmol/L High 21-28 [facility] Comment on above: Performed By: #### C R BGA ####[facility] PATHOLOGY EPCWHZZOEM37[address] [place] [address], MODE BIPAP Normal [facility] Comment on above: Performed By: #### C R BGA ####[facility] PATHOLOGY EISKVIBVWJ47[address] [place] [address], Oxygen saturation in Blood 99.8 % High 95.0-99.0 [facility] Comment on above: Performed By: #### C R BGA ####[facility] PATHOLOGY [id number] [place] [address], COMPLETE BLOOD COUNTon 05-31 Erythrocyte distribution width (RBC) [Ratio] 16.1 % High 11.5-14.5 [facility] Comment on above: Performed By: #### C BC ####[facility] PATHOLOGY [id number] [place], Hematocrit (Bld) [Volume fraction] 25.2 % Low 41.0-53.0 [facility] Comment on above: Performed By: #### C BC ####[facility] PATHOLOGY [id number] [place], Hemoglobin (Bld) [Mass/Vol] 8.2 g/dL Low 13.9-16.3 [facility] Comment on above: Performed By: #### C BC ####[facility] PATHOLOGY [id number] [place], MCH (RBC) [Entitic mass] 31.4 pg Normal 26.0-34.0 [facility] Comment on above: Performed By: #### C BC ####[facility] PATHOLOGY [id number] [place], MCHC (RBC) [Mass/Vol] 32.6 g/dL Normal 32.0-35.9 [facility] Comment on above: Performed By: #### C BC ####[facility] PATHOLOGY [id number] [place], MCV (RBC) [Entitic vol] 96 fL Normal 80-100 [facility] Comment on above: Performed By: #### C BC ####[facility] PATHOLOGY [id number] [place], Platelet mean volume (Bld) [Entitic vol] 6.2 fL Low 7.5-11.2 [facility] Comment on above: Performed By: #### C BC ####[facility] PATHOLOGY [id number] [place], Platelets (Bld) [#/Vol] 548 10*3/uL High 150-400 [facility] Comment on above: Performed By: #### C BC ####[facility] PATHOLOGY [id number] [place], RBC (Bld) [#/Vol] 2.62 10*6/uL Low 4.50-5.90 [facility] Comment on above: Performed By: #### C BC ####S PATHOLOGY SYAARTUOUE1010 [place], WBC (Bld) [#/Vol] 14.9 10*3/uL High 4.5-11.5 [facility] Comment on above: Performed By: #### C BC ####S PATHOLOGY [id number] [place], [place], CT ABDOMEN/PELVIS W/ CONTRAS Ton 05-31-2024 CT ABDOMEN/PELVIS W/ CONTRAST Normal [facility] MAGNESIUMon 05-31-2024 Magnesium [Mass/Vol] 2.8 mg/dL High 1.9-2.7 [facility] Comment on above: Performed By: #### CHI Cronin CH8 ####S PATHOLOGY [id number] [place], PHOSPHORUSon 05-31-2024 Phosphate [Mass/Vol] 3.4 mg/dL Normal 2.5-5.0 [facility] Comment on above: Performed By: #### CHI Cronin CH8 ####[facility] PATHOLOGY [id number] [place], Progress Noteson 05-31-2024 [employer] Authentication Interface Message Text Normal [facility] XR ABDOMEN AP 1 VIEWon 05-31 XR ABDOMEN AP 1 VIEW Normal [facility] XR CHEST AP OR PA 1 VIEWon 0 05-31-2024 XR CHEST AP OR PA 1 VIEW Normal [facility] XR Chest Single viewon 05-31 EXAMINATION: XR CHES T AP OR PA 1 VIEW 05/31/2024 06:24 AM CLINICAL HISTORY: Endotracheal tube assessment ASSOCIATED DIAGNOSIS: Endotracheal tube assessment ORDERING PROVIDER: MATT [employer] NOTE: COMPARISON: XR CHEST AP OR PA 1 VIEW 05/30/2024, 8:05 AM FINDINGS: Lines, tubes, and devices: Endotracheal tube is not discretely visible. It may be obscured by the chin. Enteric tube is unchanged. There are plate and screw fixation device is a right-sided ribs. Lungs and pleura: Stable Cardiomediastinal silhouette: Stable appearance of cardiomediastinal silhouette. Musculoskeletal: Stable IMPRESSION: The endotracheal tube is not visible. Correlation with physical exam is recommended to determine if it is present. MACRO: None RADIOLOGY Marek Rodríguez M D - 05/31/2024 EXAMINATION: XR CHEST AP OR PA 1 VIEW 05/31/2024 06:24 AM CLINICAL HISTORY: Endotracheal tube assessment ASSOCIATED DIAGNOSIS: Endotracheal tube assessment ORDERING PROVIDER: MATT BARBA [employer] NOTE: COMPARISON: XR CHEST AP OR PA 1 VIEW 05/30/2024, 8:05 AM FINDINGS: Lines, tubes, and devices: Endotracheal tube is not discretely visible. It may be obscured by the chin. Enteric tube is unchanged. There are plate and screw fixation device is a right-sided ribs. Lungs and pleura: Stable Cardiomediastinal silhouette: Stable appearance of cardiomediastinal silhouette. Musculoskeletal: Stable IMPRESSION: The endotracheal tube is not visible. Correlation with physical exam is recommended to determine if it is present. MACRO: None [facility] Radiology Study observation (narrative) [facility] XR Chest Single viewOrdered By: Marek Rodríguez on 05-31-2024 [facility] Work Phone: 1:1 Interactionon 05-30-2024 [employer] Authentication Interface Message Text Normal [facility] BASIC METABOLIC PANELon 05-03 Anion gap [Moles/Vol] 11 mmol/L Normal 10-20 [facility] Comment on above: Performed By: #### CHI Cronin CH8 ####[facility] [id number] [place], Calcium [Mass/Vol] 8.2 mg/dL Low 8.6-10.3 [facility] Comment on above: Performed By: #### CHI Cronin CH8 ####[facility] QNFKIXOWZC2276 [place], Chloride [Moles/Vol] 102 mmol/L Normal 98-107 [facility] Comment on above: Performed By: #### CHI Cronin CH8 ####[facility] JHHYVHREWC2984 [place], CO2 [Moles/Vol] 32 mmol/L High 21-31 The [facility] Comment on above: Performed By: #### CHI Cronin CH8 ####[facility] PATHOLOG[facility] YYOUKQGKGM9529 [place], Creatinine [Mass/Vol] 0.66 mg/dL Low 0.70-1.30 [facility] Comment on above: Performed By: #### CHI Cronin CH8 ####[facility] PATHOLOG[facility] SXHAYPUPCN5914 [place], ESTIMATED GFR (CKD-EPI) 93 mL/min/1.73sqm Normal >=60 [facility] Comment on above: Result Comment: 2020 CKD EPI Equation using Creatinine without RaceComment: Estimated glomerular filtration rate (eGFR) is calculated without a race coefficient. Values should be interpreted in the context of the patient's full clinical presentation.Reference:1. Rishi Jose, Jorge M, Nic SILVA, et al.. A Unifying Approach for GFR Estimation: Recommendations of the NKF-ASN Task Force on Reassessing the Inclusion of Race in Diagnosing Kidney Disease. Citizen [place] Journal of Kidney Diseases 202;79(2):268-88.e1.2. N Engl J Med 1 Vol. 385 Issue 19 Pages 0843-5604 Performed By: #### CHI Cronin CH8 ####[facility] GUMWLTGMRA6574 [place], Glucose [Mass/Vol] 141 mg/dL High 74-109 [facility] Comment on above: Performed By: #### CHI Cronin CH8 ####[facility] PATHOLOGY QQTJHZXZCF7074 [place], Potassium [Moles/Vol] 4.1 mmol/L Normal 3.5-5.0 [facility] Comment on above: Performed By: ###CHI Holder CH8 ####[facility] PATHOLOGY YRENSPCIYN6145 [place], Sodium [Moles/Vol] 141 mmol/L Normal 136-145 [facility] Comment on above: Performed By: #### CHI Cronin CH8 ####[facility] YKVAFNOZRJ[address] [place] [address], Urea nitrogen [Mass/Vol] 16 mg/dL Normal 7-25 [facility] Comment on above: Performed By: #### M CHI Meade CH8 ####[facility] PATHOLOGY [id number] [place], BLOOD GAS, ARTERIALon 2023 CR JOSEPH 7.7 mmol/L High -2.0-3.0 [facility] Comment on above: Performed By: #### C R BGA ####[facility] PATHOLOGY [id number] [place], CR PCO2 48.4 mm Hg High 35.0-45.0 [facility] Comment on above: Performed By: #### C R BGA ####[facility] PATHOLOGY [id number] [place] [address], CR PHA 7.440 Normal 7.350-7.450 [facility] Comment on above: Performed By: #### C R BGA ####[facility] PATHOLOGY TMYNJZQWYV0196[address] [place] [address], CR PO2 134 mm Hg High 80-100 [facility] Comment on above: Performed By: #### C R BGA ####[facility] PATHOLOGY [id number] [place], FIO2 (CATEGORY) 70% Normal [facility] Comment on above: Performed By: #### C R BGA ####[facility] PATHOLOGY [id number] [place], HCO3 (Bld) [Moles/Vol] 32 mmol/L High 21-28 [facility] Comment on above: Performed By: #### C R BGA ####[facility] PATHOLOGY DALNUNVULV5438 [place], MODE BIPAP Normal [facility] Comment on above: Performed By: #### C R BGA ####[facility] PATHOLOGY [id number] [place], Oxygen saturation in Blood 99.4 % High 95.0-99.0 [facility] Comment on above: Performed By: #### C R BGA ####[facility] PATHOLOGY [id number] [place], CR JOSEPH 4.4 mmol/L High -2.0-3.0 [facility] Comment on above: Performed By: #### C R BGA ####[facility] PATHOLOGY [id number] [place], CR PCO2 45.7 mm Hg High 35.0-45.0 [facility] Comment on above: Performed By: #### C R BGA ####[facility] PATHOLOGY [id number] [place], CR PHA 7.417 Normal 7.350-7.450 [facility] Comment on above: Performed By: #### C R BGA ####[facility] PATHOLOGY [id number] [place], CR PO2 110 mm Hg High 80-100 [facility] Comment on above: Performed By: #### C R BGA ####[facility] PATHOLOGY [id number] [place] [address], FIO2 (CATEGORY) 40% Normal [facility] Comment on above: Performed By: #### C R BGA ####[facility] PATHOLOGY [id number] [place], HCO3 (Bld) [Moles/Vol] 29 mmol/L High 21-28 [facility] Comment on above: Performed By: #### C R BGA ####[facility] PATHOLOGY [id number] [place], MODE Vent Normal [facility] Comment on above: Performed By: #### C R BGA ####[facility] PATHOLOGY [id number] [place], Oxygen saturation in Blood 98.7 % Normal 95.0-99.0 [facility] Comment on above: Performed By: #### C R BGA ####[facility] PATHOLOGY [id number] [place], COMPLEMENT ALT PATH AH50on 0 05-30-2024 COMPLEMENT, ALT PATH, FUNC 63 %of norm Normal >=46 [facility] Comment on above: Order Comment: Naresh perry Agency Address Site ID: MYM Name: [facility] Address: [address] [place] [address] Director: Jeff Tejada M.D. Ph.D. Result Comment: ---- ADDITIONAL INFORMATION This test was developed and its performance characteristicsdetermined by [facility] in a manner consistent with CLIArequirements. This test has not been cleared or approved bythe U.S. Food and Drug Administration. Performed By: #### C [facility] ####[facility] Jkxxtwnhy2170 [place], [place] COMPLETE BLOOD COUNTon 05-30 Erythrocyte distribution width (RBC) [Ratio] 16.1 % High 11.5-14.5 [facility] Comment on above: Performed By: #### C BC ####S PATHOLOGY OORPKGASAK1185 [place], Hematocrit (Bld) [Volume fraction] 27.7 % Low 41.0-53.0 [facility] Comment on above: Performed By: #### C BC ####[facility] CMZZUZPGFU7535 [place], Hemoglobin (Bld) [Mass/Vol] 9.1 g/dL Low 13.9-16.3 [facility] Comment on above: Performed By: #### C BC ####[facility] JPHGATDXAP4054 [place], MCH (RBC) [Entitic mass] 31.1 pg Normal 26.0-34.0 [facility] Comment on above: Performed By: #### C BC ####[facility] [id number] [place], MCHC (RBC) [Mass/Vol] 32.9 g/dL Normal 32.0-35.9 [facility] Comment on above: Performed By: #### C BC ####[facility] ZPXRMPEHKB8695 [place], MCV (RBC) [Entitic vol] 95 fL Normal 80-100 [facility] Comment on above: Performed By: #### Rebeca BC ####S PATHOLOGY ZNNNUKBKRG7584 [place], Platelet mean volume (Bld) [Entitic vol] 6.1 fL Low 7.5-11.2 [facility] Comment on above: Performed By: #### Rebeca BC ####[facility] PATHOLOGY [id number] [place], Platelets (Bld) [#/Vol] 588 10*3/uL High 150-400 [facility] Comment on above: Performed By: #### Rebeca BC ####[facility] PATHOLOGY XKHOANERRO3298 [place], RBC (Bld) [#/Vol] 2.93 10*6/uL Low 4.50-5.90 [facility] Comment on above: Performed By: #### Rebeca BC ####[facility] PATHOLOGY [id number] [place], WBC (Bld) [#/Vol] 15.2 10*3/uL High 4.5-11.5 [facility] Comment on above: Performed By: #### Rebeca BC ####[facility] PATHOLOGY [id number] [place], MAGNESIUMon 05-30-2024 Magnesium [Mass/Vol] 1.9 mg/dL Normal 1.9-2.7 The [facility] Comment on above: Performed By: ###CHI Holder CH8 ####S PATHOLOGY GXORFNNDWB8096 [place], PHOSPHORUSon 05-30-2024 Phosphate [Mass/Vol] 3.0 mg/dL Normal 2.5-5.0 [facility] Comment on above: Performed By: ###CHI Holder CH8 ####S PATHOLOGY RDLMALBKRW6825 [place], Progress Noteson 05-30-2024 [employer] Hand Authentication Interface Message Text Normal [facility] [employer] Hand Authentication Interface Message Text Normal [facility] XR ABDOMEN AP 1 VIEWon 05-30 XR ABDOMEN AP 1 VIEW Normal [facility] XR CHEST AP OR PA 1 VIEWon 0 05-30-2024 XR CHEST AP OR PA 1 VIEW Normal [facility] XR Chest Single viewon 05-30 EXAMINATION: XR CHES T AP OR PA 1 VIEW 05/30/2024 07:25 AM CLINICAL HISTORY: Endotracheal tube assessment ASSOCIATED DIAGNOSIS: Endotracheal tube assessment ORDERING PROVIDER: RAJIV VALDES COMPARISON: XR CHEST AP OR PA 1 VIEW 05/29/2024, 7:57 AM FINDINGS: Lines, tubes, and devices: -Endotracheal tube projects 4.9 cm above the vivien. -OG tube courses below the GE junction with the tip outside of field of view. Lungs and pleura: No appreciable pneumothorax. Blunting of bilateral costophrenic angles likely small layering right and trace left pleural effusions with adjacent opacities likely representing atelectasis. No new focal consolidation. Cardiomediastinal silhouette: Stable appearance of cardiomediastinal silhouette. Musculoskeletal: No significant interval change. IMPRESSION: Stable lines and medical devices with unchanged pulmonary findings, as detailed. RADIOLOGY Vignesh Higuera MD - 05/30/2024 EXAMINATION: XR CHEST AP OR PA 1 VIEW 05/30/2024 07:25 AM CLINICAL HISTORY: Endotracheal tube assessment ASSOCIATED DIAGNOSIS: Endotracheal tube assessment ORDERING PROVIDER: RAJIV VALDES COMPARISON: XR CHEST AP OR PA 1 VIEW 05/29/2024, 7:57 AM FINDINGS: Lines, tubes, and devices: -Endotracheal tube projects 4.9 cm above the vivien. -OG tube courses below the GE junction with the tip outside of field of view. Lungs and pleura: No appreciable pneumothorax. Blunting of bilateral costophrenic angles likely small layering right and trace left pleural effusions with adjacent opacities likely representing atelectasis. No new focal consolidation. Cardiomediastinal silhouette: Stable appearance of cardiomediastinal silhouette. Musculoskeletal: No significant interval change. IMPRESSION: Stable lines and medical devices with unchanged pulmonary findings, as detailed. [facility] Radiology Study observation (narrative) [facility] XR Chest Single viewOrdered By: Vignesh Higuera on 05-30-2024 [employer] Work Phone: 1:1 Interactionon 05-29-2024 [employer] Hand Authentication Interface Message Text Normal The [facility] BASIC METABOLIC PANELon 05-03 Anion gap [Moles/Vol] 10 mmol/L Normal 10-20 [facility] Comment on above: Performed By: #### C H8, MG, PHOS, VANC R ####[facility] [id number] [place], Calcium [Mass/Vol] 8.4 mg/dL Low 8.6-10.3 [facility] Comment on above: Performed By: #### C H8, MG, PHOS, VANC R ####[facility] [id number] [place], Chloride [Moles/Vol] 102 mmol/L Normal 98-107 [facility] Comment on above: Performed By: #### C H8, MG, PHOS, VANC R ####[facility] [id number] [place], CO2 [Moles/Vol] 34 mmol/L High 21-31 [facility] Comment on above: Performed By: #### C H8, MG, PHOS, VANC R ####[facility] [id number] [place], Creatinine [Mass/Vol] 0.66 mg/dL Low 0.70-1.30 [facility] Comment on above: Performed By: #### C H8, MG, PHOS, VANC R ####[facility] [id number] [place], ESTIMATED GFR (CKD-EPI) 93 mL/min/1.73sqm Normal >=60 [facility] Comment on above: Result Comment: 2020 CKD EPI Equation using Creatinine without RaceComment: Estimated glomerular filtration rate (eGFR) is calculated without a race coefficient. Values should be interpreted in the context of the patient's full clinical presentation.Reference:1. Rishi C, Jorge M, Nic DC, et al.. A Unifying Approach for GFR Estimation: Recommendations of the NKF-ASN Task Force on Reassessing the Inclusion of Race in Diagnosing Kidney Disease. Citizen [place] Journal of Kidney Diseases 2021;79(2):268-88.e1.2. N Engl J Med 1 Vol. 385 Issue 19 Pages 0681-0197 Performed By: #### C H8, MG PHOSLAURI R ####[facility] GYSAHUVBOP8914 [place], [place], Glucose [Mass/Vol] 89 mg/dL Normal 74-109 [facility] Comment on above: Performed By: #### C H8, MG, PHOS VANC R ####[facility] [id number] [place], [place], Potassium [Moles/Vol] 4.1 mmol/L Normal 3.5-5.0 [facility] Comment on above: Performed By: #### Rebeca H8, MG, PHOS VANC R ####[facility] [id number] [place], Sodium [Moles/Vol] 142 mmol/L Normal 136-145 [facility] Comment on above: Performed By: #### C H8, MG, PHOS, VANC R ####[facility] [id number] [place], Urea nitrogen [Mass/Vol] 20 mg/dL Normal 7-25 [facility] Comment on above: Performed By: #### C H8, MG, PHOS, VANC R ####[facility] [id number] [place], BLOOD GAS, ARTERIALon 2023 CR JOSEPH 9.0 mmol/L High -2.0-3.0 [facility] Comment on above: Performed By: #### C R BGA ####[facility] ZXKYOWXOZL6273 [place], [place], CR PCO2 47.4 mm Hg High 35.0-45.0 [facility] Comment on above: Performed By: #### C R BGA ####[facility] [id number] [place], [place], CR PHA 7.462 High 7.350-7.450 [facility] Comment on above: Performed By: #### C R BGA ####S PATHOLOGY [id number] [place], [place], CR PO2 66 mm Hg Low 80-100 [facility] Comment on above: Performed By: #### C R BGA ####S PATHOLOGY [id number] [place], FIO2 (CATEGORY) 35% Normal [facility] Comment on above: Performed By: #### C R BGA ####[facility] PATHOLOGY [id number] [place] [address], HCO3 (Bld) [Moles/Vol] 33 mmol/L High 21-28 [facility] Comment on above: Performed By: #### C R BGA ####[facility] PATHOLOGY [id number] [place] [address], MODE Vent Normal [facility] Comment on above: Performed By: #### C R BGA ####[facility] PATHOLOGY [id number] [place] [address], Oxygen saturation in Blood 94.9 % Low 95.0-99.0 [facility] Comment on above: Performed By: #### C R BGA ####[facility] PATHOLOGY [id number] [place] [address], COMPLETE BLOOD COUNTon 05-29 Erythrocyte distribution width (RBC) [Ratio] 15.5 % High 11.5-14.5 The [facility] Comment on above: Performed By: #### C BC ####S PATHOLOGY AZUILKFMGU[address] [place] [address], Hematocrit (Bld) [Volume fraction] 25.0 % Low 41.0-53.0 [facility] Comment on above: Performed By: #### C BC ####S PATHOLOGY UOETMTWMYY5500 [place], Hemoglobin (Bld) [Mass/Vol] 8.2 g/dL Low 13.9-16.3 [facility] Comment on above: Performed By: #### C BC ####[facility] PZTRQVPZZQ8451 [place], MCH (RBC) [Entitic mass] 31.5 pg Normal 26.0-34.0 [facility] Comment on above: Performed By: #### C BC ####[facility] PATHOLOGY [id number] [place], MCHC (RBC) [Mass/Vol] 32.8 g/dL Normal 32.0-35.9 [facility] Comment on above: Performed By: #### C BC ####[facility] PATHOLOGY [id number] [place], MCV (RBC) [Entitic vol] 96 fL Normal 80-100 [facility] Comment on above: Performed By: #### C BC ####[facility] PATHOLOGY [id number] [place], Platelet mean volume (Bld) [Entitic vol] 6.2 fL Low 7.5-11.2 [facility] Comment on above: Performed By: #### C BC ####[facility] PATHOLOGY [id number] [place], Platelets (Bld) [#/Vol] 517 10*3/uL High 150-400 [facility] Comment on above: Performed By: #### C BC ####[facility] PATHOLOGY [id number] [place], RBC (Bld) [#/Vol] 2.61 10*6/uL Low 4.50-5.90 [facility] Comment on above: Performed By: #### C BC ####[facility] PATHOLOGY [id number] [place], WBC (Bld) [#/Vol] 9.0 10*3/uL Normal 4.5-11.5 [facility] Comment on above: Performed By: #### C BC ####[facility] PATHOLOGY [id number] [place], [place], CT ABDOMEN/PELVIS W/ CONTRAS Ton 05-29-2024 CT ABDOMEN/PELVIS W/ CONTRAST Normal [facility] MAGNESIUMon 05-29-2024 Magnesium [Mass/Vol] 2.2 mg/dL Normal 1.9-2.7 The [facility] Comment on above: Performed By: #### C H8, MG, PHOS, VANC R ####[facility] [id number] [place], PHOSPHORUSon 05-29-2024 Phosphate [Mass/Vol] 3.0 mg/dL Normal 2.5-5.0 The [facility] Comment on above: Performed By: #### Rebeca Rodriges, MG, PHOS, VANC R ####[facility] [id number] [place], [place], Progress Noteson 05-29-2024 [employer] Hand Authentication Interface Message Text Normal [facility] [employer] Hand Authentication Interface Message Text Normal The [facility] VANCOMYCIN RANDOMon 05-29-20 24 VANC R 10.4 ug/mL Normal 5.0-40.0 [facility] Comment on above: Performed By: #### Rebeca Rodriges, MG, PHOS, VANC R ####[facility] [id number] [place], XR CHEST AP OR PA 1 VIEWon 0 05-29-2024 XR CHEST AP OR PA 1 VIEW Normal The [facility] XR Chest Single viewon 05-29 EXAMINATION: XR CHES T AP OR PA 1 VIEW 05/29/2024 07:57 AM CLINICAL HISTORY: Endotracheal tube assessment ASSOCIATED DIAGNOSIS: Endotracheal tube assessment ORDERING PROVIDER: RAJIV VALDES COMPARISON: XR CHEST AP OR PA 1 VIEW 05/28/2024, 6:27 AM FINDINGS: Lines, tubes, and devices: -Endotracheal tube projects 4.9 cm above the vivien. -OG tube courses below the GE junction with the tip outside of field of view. Lungs and pleura: Again seen right lung volume loss. Perihilar and right basilar and to lesser extent left basilar heterogeneous opacities likely representing atelectasis. Blunting of right costophrenic angle suspicious for an underlying small to moderate layering pleural effusion. No appreciable pneumothorax. Cardiomediastinal silhouette: Stable appearance of cardiomediastinal silhouette. Musculoskeletal: Unchanged displaced right-sided rib fractures some of which have plate fixation hardware in place. IMPRESSION: Stable lines and medical devices with unchanged pulmonary findings, as detailed. RADIOLOGY Vignesh Higuera MD - 05/29/2024 EXAMINATION: XR CHEST AP OR PA 1 VIEW 05/29/2024 07:57 AM CLINICAL HISTORY: Endotracheal tube assessment ASSOCIATED DIAGNOSIS: Endotracheal tube assessment ORDERING PROVIDER: RAJIV VALDES COMPARISON: XR CHEST AP OR PA 1 VIEW 05/28/2024, 6:27 AM FINDINGS: Lines, tubes, and devices: -Endotracheal tube projects 4.9 cm above the vivien. -OG tube courses below the GE junction with the tip outside of field of view. Lungs and pleura: Again seen right lung volume loss. Perihilar and right basilar and to lesser extent left basilar heterogeneous opacities likely representing atelectasis. Blunting of right costophrenic angle suspicious for an underlying small to moderate layering pleural effusion. No appreciable pneumothorax. Cardiomediastinal silhouette: Stable appearance of cardiomediastinal silhouette. Musculoskeletal: Unchanged displaced right-sided rib fractures some of which have plate fixation hardware in place. IMPRESSION: Stable lines and medical devices with unchanged pulmonary findings, as detailed. [facility] Radiology Study observation (narrative) [facility] XR Chest Single viewOrdered By: Vignesh Higuera on 05-29-2024 [facility] [employer] Work Phone: 1:1 Interactionon 05-28-2024 Cushion Maker Hand Authentication Interface Message Text Normal The [facility] BASIC METABOLIC PANELon 05-03 Anion gap [Moles/Vol] 8 mmol/L Low 10-20 The [facility] Comment on above: Performed By: #### AMMON Cronin PHOS ####[facility] [id number] [place], Calcium [Mass/Vol] 8.4 mg/dL Low 8.6-10.3 The [facility] Comment on above: Performed By: ###AMMON Holder PHOS ####[facility] SNEYMFPWYH7890 [place], Chloride [Moles/Vol] 106 mmol/L Normal 98-107 The [facility] Comment on above: Performed By: ###AMMON Holder PHOS ####[facility] NROPXLLOPI4037 [place], CO2 [Moles/Vol] 34 mmol/L High 21-31 [facility] Comment on above: Performed By: ###AMMON Holder, RADS ####[facility] [id number] [place], Creatinine [Mass/Vol] 0.68 mg/dL Low 0.70-1.30 [facility] Comment on above: Performed By: #### AMMON Cronin, PHOS ####[facility] FGPLHEPHGQ2509 [place], ESTIMATED GFR (CKD-EPI) 92 mL/min/1.73sqm Normal >=60 [facility] Comment on above: Result Comment: 2020 CKD EPI Equation using Creatinine without RaceComment: Estimated glomerular filtration rate (eGFR) is calculated without a race coefficient. Values should be interpreted in the context of the patient's full clinical presentation.Reference:1. Rishi C, Jorge M, Nic SILVA, et al.. A Unifying Approach for GFR Estimation: Recommendations of the NKF-ASN Task Force on Reassessing the Inclusion of Race in Diagnosing Kidney Disease. Citizen [place] Journal of Kidney Diseases 2021;79(2):268-88.e1.2. N Engl J Med 2020 Vol. 385 Issue 19 Pages 5884-1977 Performed By: #### AMMON Cronin, RADS ####[facility] XAIRENHGBM0314 [place], Glucose [Mass/Vol] 108 mg/dL Normal 74-109 [facility] Comment on above: Performed By: #### AMMON Cronin, RADS ####[facility] [id number] [place], Potassium [Moles/Vol] 4.3 mmol/L Normal 3.5-5.0 [facility] Comment on above: Performed By: #### AMMON Cronin, PHOS ####[facility] [id number] [place], Sodium [Moles/Vol] 144 mmol/L Normal 136-145 The [facility] Comment on above: Performed By: #### M AMMON Meade, PHOS ####S PATHOLOGY [id number] [place], Urea nitrogen [Mass/Vol] 24 mg/dL Normal 7-25 [facility] Comment on above: Performed By: #### M AMMON Meade, PHOS ####[facility] PATHOLOGY [id number] [place], BLOOD GAS, ARTERIALon 2023 CR JOSEPH 6.1 mmol/L High -2.0-3.0 [facility] Comment on above: Performed By: #### C R BGA ####[facility] PATHOLOGY [id number] [place], [place], CR PCO2 58.1 mm Hg High 35.0-45.0 [facility] Comment on above: Performed By: #### C R BGA ####[facility] PATHOLOGY [id number] [place], CR PHA 7.363 Normal 7.350-7.450 [facility] Comment on above: Performed By: #### C R BGA ####[facility] PATHOLOGY [id number] [place], [place], CR PO2 188 mm Hg High 80-100 [facility] Comment on above: Performed By: #### C R BGA ####S PATHOLOGY [id number] [place], FIO2 (CATEGORY) 60% Normal [facility] Comment on above: Performed By: #### C R BGA ####S PATHOLOGY HABAVZLIVS3681 [place], HCO3 (Bld) [Moles/Vol] 32 mmol/L High 21-28 [facility] Comment on above: Performed By: #### C R BGA ####S PATHOLOGY OEGQYVWEYU7345 [place], MODE Vent Normal [facility] Comment on above: Performed By: #### C R BGA ####S PATHOLOGY [id number] [place], Oxygen saturation in Blood 99.6 % High 95.0-99.0 [facility] Comment on above: Performed By: #### C R BGA ####[facility] PATHOLOGY [id number] [place] [address], COMPLETE BLOOD COUNTon 05-28 Erythrocyte distribution width (RBC) [Ratio] 15.9 % High 11.5-14.5 [facility] Comment on above: Performed By: #### C BC ####[facility] PATHOLOGY IAFIRNCOYJ97[address] [place] [address], Hematocrit (Bld) [Volume fraction] 25.7 % Low 41.0-53.0 [facility] Comment on above: Performed By: #### C BC ####[facility] PATHOLOGY [id number] [place] [address], Hemoglobin (Bld) [Mass/Vol] 8.4 g/dL Low 13.9-16.3 [facility] Comment on above: Performed By: #### C BC ####[facility] PATHOLOGY [id number] [place] [address], MCH (RBC) [Entitic mass] 31.7 pg Normal 26.0-34.0 [facility] Comment on above: Performed By: #### C BC ####[facility] PATHOLOGY LANIEMRXCP23[address] [place] [address], MCHC (RBC) [Mass/Vol] 32.6 g/dL Normal 32.0-35.9 [facility] Comment on above: Performed By: #### C BC ####[facility] PATHOLOGY PICBDJPSWW[address] [place] [address], MCV (RBC) [Entitic vol] 97 fL Normal 80-100 [facility] Comment on above: Performed By: #### C BC ####[facility] PATHOLOGY LTOPREVZRV97[address] [place] [address], Platelet mean volume (Bld) [Entitic vol] 6.0 fL Low 7.5-11.2 [facility] Comment on above: Performed By: #### C BC ####[facility] PATHOLOGY RRHSGNJIZI24[address] [place] [address], Platelets (Bld) [#/Vol] 527 10*3/uL High 150-400 [facility] Comment on above: Performed By: #### C BC ####S PATHOLOGY EYMVQVITNJ3189 [place], RBC (Bld) [#/Vol] 2.64 10*6/uL Low 4.50-5.90 [facility] Comment on above: Performed By: #### C BC ####[facility] PATHOLOGY [id number] [place], WBC (Bld) [#/Vol] 10.1 10*3/uL Normal 4.5-11.5 [facility] Comment on above: Performed By: #### C BC ####[facility] PATHOLOGY [id number] [place], LACTIC ACIDon 05-28-2024 CR LACT 0.8 mmol/L Normal 0.5-1.6 [facility] Comment on above: Performed By: #### L ACT ####[facility] PATHOLOGY WOUSZAMDSS9743 [place], MAGNESIUMon 05-28-2024 Magnesium [Mass/Vol] 2.3 mg/dL Normal 1.9-2.7 [facility] Comment on above: Performed By: #### AMMON Cronin, PHOS ####[facility] UDOUJBUFWS9614 [place], PHOSPHORUSon 05-28-2024 Phosphate [Mass/Vol] 3.7 mg/dL Normal 2.5-5.0 [facility] Comment on above: Performed By: #### AMMON Cronin, PHOS ####S PATHOLOGY VSSLISINXS5646 [place], [place], Procedureson 05-28-2024 Cushion Maker Hand Authentication Interface Message Text Normal [facility] Progress Noteson 05-28-2024 Cushion Maker Hand Authentication Interface Message Text Normal [facility] Cushion Maker Hand Authentication Interface Message Text Social Work ICU Note Aware pt is intubated. Will assist with disposition planning pending pt's hospital course and medical team recs when pt is more medically appropriate. Katie Medvetz, MSSA, DAY CARE SUPERVISOR Normal [facility] RESPIRATORY CULTURE, MISCon 05-28-2024 RESPIRATORY CULTURE, MISC C RESP: No Growth GRAM STAIN: 3+ Polymorphonuclear Leukocytes No Squamous Epithelial Cells seen No organisms seen Normal [facility] Comment on above: Performed By: #### C RESP ####[facility] Ovgtxztiq5307 [place], [place] XR CHEST AP OR PA 1 VIEWon 0 05-28-2024 XR CHEST AP OR PA 1 VIEW Normal [facility] XR Chest Single viewon 05-28 EXAMINATION: XR CHES T AP OR PA 1 VIEW 05/28/2024 06:26 AM CLINICAL HISTORY: eval s/p bronchoscopy ASSOCIATED DIAGNOSIS: eval s/p bronchoscopy ORDERING PROVIDER: LINO MCKEONRENU TECHNOLOGISTS NOTE: COMPARISON: XR CHEST AP OR PA 1 VIEW 05/27/2024, 8:51 PM XR CHEST AP OR PA 1 VIEW 05/27/2024, 5:58 PM XR CHEST AP OR PA 1 VIEW 05/27/2024, 3:[address] CHEST W/O CONTRAST 05/19/2024, 9:45 AM FINDINGS: Lines, tubes, and devices: Endotracheal tube and enteral feeding tube are radiographically appropriate.. Lungs and pleura: There is some improvement in aeration the right lower zone. Some residual basilar atelectasis bilaterally as well as some pleural fluid at least on the right. Cardiomediastinal silhouette: Cardiac silhouette is at least upper limits of normal in size Musculoskeletal: Limited visualization. Redemonstration right rib fixation hardware and overlying right chest cutaneous joel. 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 IMPRESSION: Endotracheal and nasogastric tubes are radiographically Improved aeration right lower zone following bronchoscopy. There continues to be some atelectasis bilaterally, more on the right. Redemonstration pleural fluid on the right and postsurgical changes MACRO: None RADIOLOGY Marek Driver MD - 05/28/2024 EXAMINATION: XR CHEST AP OR PA 1 VIEW 05/28/2024 06:26 AM CLINICAL HISTORY: eval s/p bronchoscopy ASSOCIATED DIAGNOSIS: eval s/p bronchoscopy ORDERING PROVIDER: LINO ARMIJO TECHNOLOGISTS NOTE: COMPARISON: XR CHEST AP OR PA 1 VIEW 05/27/2024, 8:51 PM XR CHEST AP OR PA 1 VIEW 05/27/2024, 5:58 PM XR CHEST AP OR PA 1 VIEW 05/27/2024, 3:[address] CHEST W/O CONTRAST 05/19/2024, 9:45 AM FINDINGS: Lines, tubes, and devices: Endotracheal tube and enteral feeding tube are radiographically appropriate.. Lungs and pleura: There is some improvement in aeration the right lower zone. Some residual basilar atelectasis bilaterally as well as some pleural fluid at least on the right. Cardiomediastinal silhouette: Cardiac silhouette is at least upper limits of normal in size Musculoskeletal: Limited visualization. Redemonstration right rib fixation hardware and overlying right chest cutaneous joel. 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 IMPRESSION: Endotracheal and nasogastric tubes are radiographically Improved aeration right lower zone following bronchoscopy. There continues to be some atelectasis bilaterally, more on the right. Redemonstration pleural fluid on the right and postsurgical changes MACRO: None [facility] Radiology Study observation (narrative) [facility] [employer] XR Chest Single viewOrdered By: Marek Driver on 05-28-2024 [employer] Work Phone: B TYPE NATRIURETIC PEPTIDEon 05-27-2024 Natriuretic peptide B (Bld) [Mass/Vol] 28.0 pg/mL Normal <100.0 The [facility] Comment on above: Performed By: #### B PL ####[facility] [id number] [place], [place], BASIC METABOLIC PANELon 05-03 Anion gap [Moles/Vol] 8 mmol/L Low 10-20 The [facility] Comment on above: Performed By: #### C H8, MG, PHOS ####[facility] ABIGVKYBSA9222 [place], Calcium [Mass/Vol] 8.7 mg/dL Normal 8.6-10.3 The [facility] Comment on above: Performed By: #### C H8, MG, PHOS ####[facility] [id number] [place], Chloride [Moles/Vol] 106 mmol/L Normal 98-107 [facility] Comment on above: Performed By: #### Rebeca H8, MG, PHOS ####[facility] KLBJLCEIUD5988 [place], CO2 [Moles/Vol] 34 mmol/L High 21-31 [facility] Comment on above: Performed By: #### Rebeca H8 MG, PHOS ####[facility] PVFGPGXRGN1996 [place], Creatinine [Mass/Vol] 0.72 mg/dL Normal 0.70-1.30 [facility] Comment on above: Performed By: #### Rebeca H8 MG, PHOS ####[facility] FTRAPMNJCZ6785 [place], ESTIMATED GFR (CKD-EPI) 91 mL/min/1.73sqm Normal >=60 [facility] Comment on above: Result Comment: 2020 CKD EPI Equation using Creatinine without RaceComment: Estimated glomerular filtration rate (eGFR) is calculated without a race coefficient. Values should be interpreted in the context of the patient's full clinical presentation.Reference:1. Rishi C, Jorge M, Nic SILVA, et al.. A Unifying Approach for GFR Estimation: Recommendations of the NKF-ASN Task Force on Reassessing the Inclusion of Race in Diagnosing Kidney Disease. Citizen [place] Journal of Kidney Diseases 2021;79(2):268-88.e1.2. N Engl J Med 2020 Vol. 385 Issue 19 Pages 6333-1291 Performed By: #### C H8, MG, PHOS ####[facility] PATH[facility] BTRGNWKMZW9124 [place], Glucose [Mass/Vol] 113 mg/dL High 74-109 [facility] Comment on above: Performed By: #### C H8, MG, PHOS ####[facility] RIGHJTGNLK6363 [place], Potassium [Moles/Vol] 4.8 mmol/L Normal 3.5-5.0 [facility] Comment on above: Performed By: #### C H8, MG, PHOS ####[facility] PATH[facility] PZQJSHLBCE1806 [place], Sodium [Moles/Vol] 143 mmol/L Normal 136-145 [facility] Comment on above: Performed By: #### C H8, MG, PHOS ####[facility] SOLARTJTXJ0552 [place], Urea nitrogen [Mass/Vol] 26 mg/dL High 7-25 [facility] Comment on above: Performed By: #### C H8, MG, PHOS ####[facility] NXKTXGQUEU8246 [place], Anion gap [Moles/Vol] 10 mmol/L Normal 10-20 [facility] Comment on above: Performed By: #### P HOS MG, CH8 ####[facility] PATH[facility] ZPGWRDQVYB1701 [place], Calcium [Mass/Vol] 9.0 mg/dL Normal 8.6-10.3 [facility] Comment on above: Performed By: #### P HOS MG, CH8 ####[facility] CYBMIDSAKN9039 [place], Chloride [Moles/Vol] 101 mmol/L Normal 98-107 [facility] Comment on above: Performed By: #### P HOS, MG, CH8 ####[facility] OVPLSRPLUW9350 [place], CO2 [Moles/Vol] 38 mmol/L High 21-31 [facility] Comment on above: Performed By: #### P HOS, MG, CH8 ####[facility] DIJTNOUDUE0115 [place], Creatinine [Mass/Vol] 0.66 mg/dL Low 0.70-1.30 [facility] Comment on above: Performed By: #### P HOS, MG, CH8 ####[facility] MENEFXRIIT1048 [place], ESTIMATED GFR (CKD-EPI) 93 mL/min/1.73sqm Normal >=60 [facility] Comment on above: Result Comment: 2020 CKD EPI Equation using Creatinine without RaceComment: Estimated glomerular filtration rate (eGFR) is calculated without a race coefficient. Values should be interpreted in the context of the patient's full clinical presentation.Reference:1. Rishi Jose, Jorge M, Nic SILVA, et al.. A Unifying Approach for GFR Estimation: Recommendations of the NKF-ASN Task Force on Reassessing the Inclusion of Race in Diagnosing Kidney Disease. Citizen [place] Journal of Kidney Diseases 2021;79(2):268-88.e1.2. N Engl J Med 1 Vol. 385 Issue 19 Pages 0346-8511 Performed By: #### P HOS MG, CH8 ####[facility] WASPZBRFOW3162 [place], Glucose [Mass/Vol] 132 mg/dL High 74-109 [facility] Comment on above: Performed By: #### P HOS MG, CH8 ####[facility] RGCKSKQJYV0200 [place], Potassium [Moles/Vol] 4.0 mmol/L Normal 3.5-5.0 [facility] Comment on above: Performed By: #### P HOS MG, CH8 ####S PATHOLOGY VUVKAFIAOL8362 [place], Sodium [Moles/Vol] 145 mmol/L Normal 136-145 [facility] Comment on above: Performed By: #### P HOS MG, CH8 ####[facility] [id number] [place], [place], Urea nitrogen [Mass/Vol] 24 mg/dL Normal 7-25 [facility] Comment on above: Performed By: #### P HOS MG, CH8 ####[facility] [id number] [place], [place], BLOOD CULTUREon 05-27-2024 Bacteria identified Cx Nom (Bld) C BLOOD: No Growth Normal [facility] Comment on above: Performed By: #### C BLOOD ####[facility] Oipgztbte5715 [facility] [place], [id number] Bacteria identified Cx Nom (Bld) C BLOOD: No Growth Normal The [facility] Comment on above: Performed By: #### C BLOOD ####[facility] Xwreepeay6615 [place], [place] BLOOD GAS, ARTERIALon 2023 CR JOSEPH 6.9 mmol/L High -2.0-3.0 The [facility] Comment on above: Performed By: #### C R BGA ####[facility] PATHOLOGY [id number] [place] [address], CR PCO2 60.5 mm Hg High 35.0-45.0 The [facility] Comment on above: Performed By: #### C R BGA ####[facility] PATHOLOGY [id number] [place] [address], CR PHA 7.355 Normal 7.350-7.450 The [facility] Comment on above: Performed By: #### C R BGA ####[facility] PATHOLOGY [id number] [place] [address], CR PO2 84 mm Hg Normal 80-100 The [facility] Comment on above: Performed By: #### C R BGA ####[facility] PATHOLOGY [id number] [place] [address], FIO2 (CATEGORY) 60% Normal The [facility] Comment on above: Performed By: #### C R BGA ####[facility] PATHOLOGY [id number] [place], [place], HCO3 (Bld) [Moles/Vol] 33 mmol/L High 21-28 The [facility] Comment on above: Performed By: #### C R BGA ####[facility] PATHOLOGY [id number] [place], [place], MODE BIPAP Normal The [facility] Comment on above: Performed By: #### C R BGA ####S PATHOLOGY WHFSLOMCGA[address] [place] [address], Oxygen saturation in Blood 96.8 % Normal 95.0-99.0 The [facility] Comment on above: Performed By: #### C R BGA ####[facility] PATHOLOGY [id number] [place], [place], CR JOSEPH 7.2 mmol/L High -2.0-3.0 [facility] Comment on above: Performed By: #### C R BGA ####[facility] PATHOLOGY PARPUWSOJR4816 [place], [place], CR PCO2 61.3 mm Hg High 35.0-45.0 [facility] Comment on above: Performed By: #### C R BGA ####[facility] PATHOLOGY [id number] [place], [place], CR PHA 7.357 Normal 7.350-7.450 [facility] Comment on above: Performed By: #### C R BGA ####[facility] PATHOLOGY [id number] [place], [place], CR PO2 77 mm Hg Low 80-100 The [facility] Comment on above: Performed By: #### C R BGA ####[facility] PATHOLOGY [id number] [place] [address], FIO2 (CATEGORY) >5 LPM Normal [facility] Comment on above: Result Comment: 6L Performed By: #### C R BGA ####[facility] PATHOLOGY [id number] [place] [address], HCO3 (Bld) [Moles/Vol] 34 mmol/L High 21-28 The [facility] Comment on above: Performed By: #### C R BGA ####[facility] PATHOLOGY [id number] [place] [address], MODE BIPAP Normal The [facility] Comment on above: Result Comment: 18/09 0 Performed By: #### C R BGA ####S PATHOLOGY ETJWWWZDPR735[address] [place] [address], Oxygen saturation in Blood 95.2 % Normal 95.0-99.0 The [facility] Comment on above: Performed By: #### C R BGA ####S PATHOLOGY [id number] [place], [place], CR JOSEPH 5.4 mmol/L High -2.0-3.0 [facility] Comment on above: Performed By: #### C R BGA ####[facility] PATHOLOGY [id number] [place], [place], CR PCO2 63.7 mm Hg High 35.0-45.0 [facility] Comment on above: Performed By: #### C R BGA ####[facility] PATHOLOGY [id number] [place], [place], CR PHA 7.326 Low 7.350-7.450 [facility] Comment on above: Performed By: #### C R BGA ####[facility] PATHOLOGY OBPANWEWIU1460 [place], CR PO2 70 mm Hg Low 80-100 [facility] Comment on above: Performed By: #### C R BGA ####[facility] PATHOLOGY [id number] [place] [address], FIO2 (CATEGORY) >5 LPM Normal [facility] Comment on above: Performed By: #### C R BGA ####[facility] PATHOLOGY [id number] [place] [address], HCO3 (Bld) [Moles/Vol] 32 mmol/L High 21-28 [facility] Comment on above: Performed By: #### C R BGA ####[facility] PATH[facility] [id number] [place], MODE BIPAP Normal [facility] Comment on above: Performed By: #### C R BGA ####S PATHOLOGY MUMGQWISCM4509 [place], Oxygen saturation in Blood 92.7 % Low 95.0-99.0 [facility] Comment on above: Performed By: #### C R BGA ####[facility] PATHOLOGY [id number] [place], CR JOSEPH 7.9 mmol/L High -2.0-3.0 [facility] Comment on above: Performed By: #### C R BGA ####[facility] PATHOLOG[facility] [id number] [place], CR PCO2 69.4 mm Hg Critically high 35.0-45.0 [facility] Comment on above: Performed By: #### C R BGA ####[facility] PATHOLOG[facility] [id number] [place], CR PHA 7.327 Low 7.350-7.450 [facility] Comment on above: Performed By: #### C R BGA ####[facility] PATHOLOGY [id number] [place], CR PO2 71 mm Hg Low 80-100 [facility] Comment on above: Performed By: #### C R BGA ####[facility] PATHOLOG[facility] [id number] [place], FIO2 (CATEGORY) >5 LPM Normal [facility] Comment on above: Performed By: #### C R BGA ####[facility] PATHOLOGY LLNLQDTFEN[address] [place] [address], HCO3 (Bld) [Moles/Vol] 35 mmol/L High 21-28 [facility] Comment on above: Performed By: #### C R BGA ####[facility] PATHOLOGY [id number] [place] [address], MODE BIPAP Normal [facility] Comment on above: Performed By: #### C R BGA ####[facility] PATHOLOGY JUYMGTIBKC0779[address] [place] [address], Oxygen saturation in Blood 92.0 % Low 95.0-99.0 [facility] Comment on above: Performed By: #### C R BGA ####[facility] PATHOLOGY [id number] [place] [address], COMPLETE BLOOD COUNTon 05-27 Erythrocyte distribution width (RBC) [Ratio] 16.0 % High 11.5-14.5 [facility] Comment on above: Performed By: #### C BC ####[facility] PATHOLOGY [id number] [place] [address], Hematocrit (Bld) [Volume fraction] 28.3 % Low 41.0-53.0 [facility] Comment on above: Performed By: #### C BC ####[facility] PATHOLOGY [id number] [place] [address], [place], Hemoglobin (Bld) [Mass/Vol] 9.1 g/dL Low 13.9-16.3 The [facility] Comment on above: Performed By: #### C BC ####[facility] PATHOLOG[facility] [id number] [place], MCH (RBC) [Entitic mass] 31.5 pg Normal 26.0-34.0 The [facility] Comment on above: Performed By: #### C BC ####[facility] PATHOLOG[facility] [id number] [place], MCHC (RBC) [Mass/Vol] 32.1 g/dL Normal 32.0-35.9 The [facility] Comment on above: Performed By: #### C BC ####[facility] PATHOLOGY [id number] [place] [address], MCV (RBC) [Entitic vol] 98 fL Normal 80-100 The [facility] Comment on above: Performed By: #### C BC ####[facility] PATHOLOGY [id number] [place], Platelet mean volume (Bld) [Entitic vol] 6.1 fL Low 7.5-11.2 [facility] Comment on above: Performed By: #### C BC ####[facility] PATHOLOG[facility] [id number] [place], Platelets (Bld) [#/Vol] 471 10*3/uL High 150-400 The [facility] Comment on above: Performed By: #### C BC ####[facility] PATHOLOG[facility] [id number] [place], RBC (Bld) [#/Vol] 2.88 10*6/uL Low 4.50-5.90 The [facility] Comment on above: Performed By: #### C BC ####[facility] PATHOLOG[facility] [id number] [place], WBC (Bld) [#/Vol] 10.7 10*3/uL Normal 4.5-11.5 [facility] Comment on above: Performed By: #### C BC ####[facility] [id number] [place], Erythrocyte distribution width (RBC) [Ratio] 15.7 % High 11.5-14.5 [facility] Comment on above: Performed By: #### C BC ####[facility] PATH[facility] [id number] [place], Hematocrit (Bld) [Volume fraction] 32.1 % Low 41.0-53.0 [facility] Comment on above: Performed By: #### C BC ####[facility] PATHOLOG[facility] [id number] [place], Hemoglobin (Bld) [Mass/Vol] 10.6 g/dL Low 13.9-16.3 [facility] Comment on above: Performed By: #### C BC ####[facility] PATH[facility] [id number] [place], MCH (RBC) [Entitic mass] 31.9 pg Normal 26.0-34.0 [facility] Comment on above: Performed By: #### C BC ####[facility] PATH[facility] [id number] [place], MCHC (RBC) [Mass/Vol] 32.9 g/dL Normal 32.0-35.9 [facility] Comment on above: Performed By: #### C BC ####[facility] PATH[facility] [id number] [place], MCV (RBC) [Entitic vol] 97 fL Normal 80-100 The [facility] Comment on above: Performed By: #### C BC ####[facility] PATH[facility] [id number] [place], Platelet mean volume (Bld) [Entitic vol] 6.3 fL Low 7.5-11.2 [facility] Comment on above: Performed By: #### C BC ####[facility] PATHOLOG[facility] [id number] [place], Platelets (Bld) [#/Vol] 517 10*3/uL High 150-400 [facility] Comment on above: Performed By: #### C BC ####[facility] [id number] [place], RBC (Bld) [#/Vol] 3.31 10*6/uL Low 4.50-5.90 [facility] Comment on above: Performed By: #### C BC ####S PATHOLOGY [id number] [place], WBC (Bld) [#/Vol] 11.2 10*3/uL Normal 4.5-11.5 [facility] Comment on above: Performed By: #### C BC ####[facility] PATHOLOG[facility] [id number] [place], [place], HIGH SENSITIVITY TROPONIN Io n 05-27-2024 HS TROPONIN I 11 ng/L Normal <=15 [facility] Comment on above: Order Comment: Nunica shannon troponin can result from acute myocardial infarction (coronary etiology) or myocardial injury (non-coronary etiology) - always consider both.Interval test times for ruling out acute coronary syndrome (ACS) are 2 hours.All results are reported in whole numbers representing ng/L. Results obtained by different labs or methods are not comparable.For ruling out ACS, lab values are always used in conjunction with clinical risk assessment (e.g., HEART score*).Interpreting initial value in ruling out ACSLess than 5 ng/L - below lower limit of quantification - essentially rules out ACS if chest pain began more than 3 hours prior to test and assessed risk is low.5 - 49 ng/L - indeterminate - consider repeat value in 2 hours depending on risk assessment.50 ng/L or greater - concern for ACS or myocardial injury.Interpreting delta values in ruling out ACS.Always compare to initial value obtained:Absolute change (rise or fall) of less than 5 ng/L - essentially rules out ACS if assessed clinical risk is low.Absolute change (rise or fall) of 5 - 19 ng/L - indeterminate - consider another repeat value in 2 hours depending on assessed clinical risk.Absolute change (rise or fall) of 20 ng/L or greater - concern for ACS or myocardial injury.Any absolute value of 50 ng/L or greater - concern for ACS or myocardial injury.*When using hsTnI to calculate the HEART score, use the 99% Upper Reference Limit of 15 ng/L as the normal limit (i.e. <=15 ng/L = 0 points, 16-45 ng/L = 1 point, >45 ng/L = 2 points).DispositionIntermediate hsTnI values DO NOT mandate admission to a cardiology or telemetry unit. They need to be interpreted within the clinical context using provider judgement. Performed By: #### H STRP ####[facility] [id number] [place], [place], MAGNESIUMon 05-27-2024 Magnesium [Mass/Vol] 2.3 mg/dL Normal 1.9-2.7 [facility] Comment on above: Performed By: #### C H8, MG, PHOS ####[facility] [id number] [place], Magnesium [Mass/Vol] 2.3 mg/dL Normal 1.9-2.7 [facility] Comment on above: Performed By: #### P HOS, MG, CH8 ####[facility] [id number] [place], PHOSPHORUSon 05-27-2024 Phosphate [Mass/Vol] 3.6 mg/dL Normal 2.5-5.0 [facility] Comment on above: Performed By: #### C H8, MG, PHOS ####[facility] [id number] [place], Phosphate [Mass/Vol] 3.5 mg/dL Normal 2.5-5.0 [facility] Comment on above: Performed By: #### P HOS, MG, CH8 ####[facility] [id number] [place], [place], Procedureson 05-27-2024 Cushion Maker Hand Authentication Interface Message Text Normal [facility] Cushion Maker Hand Authentication Interface Message Text Normal [facility] Cushion Maker Hand Authentication Interface Message Text Normal [facility] Progress Noteson 05-27-2024 Cushion Maker Hand Authentication Interface Message Text Normal The [facility] Cushion Maker Hand Authentication Interface Message Text 1551: 30mg etomidate, 100mg succ 1553: #7.5 ETT, 22 @ lip line; positive color change; bilateral breath sounds present Normal [facility] Cushion Maker Hand Authentication Interface Message Text Normal [facility] Cushion Maker Hand Authentication Interface Message Text Normal [facility] URINALYSIS WITH REFLEX CULTU RE PERFORMABLEon 05-27-2024 Glucose Ql (U) Negative Normal Negative [facility] Comment on above: Order Comment: A neg ative leukocyte esterase AND negative nitrite test or absence of pyuria (urine WBC count <= 5-10) make a UTI (urinary tract infection) very unlikely in a non-neutropenic adult (<=5% likelihood in many studies). A positive leukocyte esterase, nitrite and/or pyuria is a nonspecific result. This can be seen in conditions other than a UTI e.g. asymptomatic bacteriuria, gynecologic infections, sexually transmitted infections, and noninfectious conditions (positive predictive value for UTI around 50%) Performed By: #### u rinalysiswcul ####[facility] PATH[facility] [id number] [place], [place], #### C URINE ####[facility] Fjtxxvjcn0708 [place], [place] GRANULAR CASTS 3-5 Normal [facility] Comment on above: Order Comment: A neg ative leukocyte esterase AND negative nitrite test or absence of pyuria (urine WBC count <= 5-10) make a UTI (urinary tract infection) very unlikely in a non-neutropenic adult (<=5% likelihood in many studies). A positive leukocyte esterase, nitrite and/or pyuria is a nonspecific result. This can be seen in conditions other than a UTI e.g. asymptomatic bacteriuria, gynecologic infections, sexually transmitted infections, and noninfectious conditions (positive predictive value for UTI around 50%) Performed By: #### u rinalysiswcul ####S PATHOLOGY [id number] [place], [place], #### C URINE ####[facility] Goeieqwyh1098 [place], [place] Protein (U) [Mass/Vol] 100 mg/dL Abnormal Negative [facility] Comment on above: Order Comment: A neg ative leukocyte esterase AND negative nitrite test or absence of pyuria (urine WBC count <= 5-10) make a UTI (urinary tract infection) very unlikely in a non-neutropenic adult (<=5% likelihood in many studies). A positive leukocyte esterase, nitrite and/or pyuria is a nonspecific result. This can be seen in conditions other than a UTI e.g. asymptomatic bacteriuria, gynecologic infections, sexually transmitted infections, and noninfectious conditions (positive predictive value for UTI around 50%) Performed By: #### u rinalysiswcul ####[facility] PATHOLOG[facility] [id number] [place], [place], #### C URINE ####[facility] [address]vggqnsvy[address] [place], [place] [id number] SQUAMOUS EPITHELIAL 0-2 Normal 0-10 The [facility] Comment on above: Order Comment: A neg ative leukocyte esterase AND negative nitrite test or absence of pyuria (urine WBC count <= 5-10) make a UTI (urinary tract infection) very unlikely in a non-neutropenic adult (<=5% likelihood in many studies). A positive leukocyte esterase, nitrite and/or pyuria is a nonspecific result. This can be seen in conditions other than a UTI e.g. asymptomatic bacteriuria, gynecologic infections, sexually transmitted infections, and noninfectious conditions (positive predictive value for UTI around 50%) Performed By: #### u rinalysiswcul ####[facility] PATHOLOG[facility] [id number] [place], [place], #### C URINE ####[facility] [address]exzvsqlb[address] [place], [place] [id number] U APPEAR Turbid Normal Clear The [facility] Comment on above: Order Comment: A neg ative leukocyte esterase AND negative nitrite test or absence of pyuria (urine WBC count <= 5-10) make a UTI (urinary tract infection) very unlikely in a non-neutropenic adult (<=5% likelihood in many studies). A positive leukocyte esterase, nitrite and/or pyuria is a nonspecific result. This can be seen in conditions other than a UTI e.g. asymptomatic bacteriuria, gynecologic infections, sexually transmitted infections, and noninfectious conditions (positive predictive value for UTI around 50%) Performed By: #### u rinalysiswcul ####[facility] PATH[facility] [id number] [place], [place], #### C URINE ####[facility] [address]htkwttxe[address] [place], [place] [id number] U BACTERIA Few Normal [facility] Comment on above: Order Comment: A neg ative leukocyte esterase AND negative nitrite test or absence of pyuria (urine WBC count <= 5-10) make a UTI (urinary tract infection) very unlikely in a non-neutropenic adult (<=5% likelihood in many studies). A positive leukocyte esterase, nitrite and/or pyuria is a nonspecific result. This can be seen in conditions other than a UTI e.g. asymptomatic bacteriuria, gynecologic infections, sexually transmitted infections, and noninfectious conditions (positive predictive value for UTI around 50%) Performed By: #### u rinalysiswcul ####[facility] [id number] [place], [place], #### C URINE ####[facility] Rqnbfxryl[address] [place], [place] [id number] U BILI Negative Normal Negative [facility] Comment on above: Order Comment: A neg ative leukocyte esterase AND negative nitrite test or absence of pyuria (urine WBC count <= 5-10) make a UTI (urinary tract infection) very unlikely in a non-neutropenic adult (<=5% likelihood in many studies). A positive leukocyte esterase, nitrite and/or pyuria is a nonspecific result. This can be seen in conditions other than a UTI e.g. asymptomatic bacteriuria, gynecologic infections, sexually transmitted infections, and noninfectious conditions (positive predictive value for UTI around 50%) Performed By: #### u rinalysiswcul ####[facility] PATH[facility] [id number] [place], [place], #### C URINE ####[facility] Bvwbfhenw4238 [place], [place] U BLOOD Negative Normal Negative [facility] Comment on above: Order Comment: A neg ative leukocyte esterase AND negative nitrite test or absence of pyuria (urine WBC count <= 5-10) make a UTI (urinary tract infection) very unlikely in a non-neutropenic adult (<=5% likelihood in many studies). A positive leukocyte esterase, nitrite and/or pyuria is a nonspecific result. This can be seen in conditions other than a UTI e.g. asymptomatic bacteriuria, gynecologic infections, sexually transmitted infections, and noninfectious conditions (positive predictive value for UTI around 50%) Performed By: #### u rinalysiswcul ####[facility] PATHOLOG[facility] [id number] [place], [place], #### C URINE ####[facility] Vncpmutmm6031 [place], [place] U COLOR Yellow Normal Colorless [facility] Comment on above: Order Comment: A neg ative leukocyte esterase AND negative nitrite test or absence of pyuria (urine WBC count <= 5-10) make a UTI (urinary tract infection) very unlikely in a non-neutropenic adult (<=5% likelihood in many studies). A positive leukocyte esterase, nitrite and/or pyuria is a nonspecific result. This can be seen in conditions other than a UTI e.g. asymptomatic bacteriuria, gynecologic infections, sexually transmitted infections, and noninfectious conditions (positive predictive value for UTI around 50%) Performed By: #### u rinalysiswcul ####[facility] PATHOLOG[facility] [id number] [place], [place], #### C URINE ####[facility] [address]apwsulb[address] [place], [place] [id number] U HY CAST 3-5 Normal [facility] Comment on above: Order Comment: A neg ative leukocyte esterase AND negative nitrite test or absence of pyuria (urine WBC count <= 5-10) make a UTI (urinary tract infection) very unlikely in a non-neutropenic adult (<=5% likelihood in many studies). A positive leukocyte esterase, nitrite and/or pyuria is a nonspecific result. This can be seen in conditions other than a UTI e.g. asymptomatic bacteriuria, gynecologic infections, sexually transmitted infections, and noninfectious conditions (positive predictive value for UTI around 50%) Performed By: #### u rinalysiswcul ####[facility] PATH[facility] [id number] [place], [place], #### C URINE ####[facility] Ryakfcxds6138 [place], [place] U KETONE Negative Normal Negative [facility] Comment on above: Order Comment: A neg ative leukocyte esterase AND negative nitrite test or absence of pyuria (urine WBC count <= 5-10) make a UTI (urinary tract infection) very unlikely in a non-neutropenic adult (<=5% likelihood in many studies). A positive leukocyte esterase, nitrite and/or pyuria is a nonspecific result. This can be seen in conditions other than a UTI e.g. asymptomatic bacteriuria, gynecologic infections, sexually transmitted infections, and noninfectious conditions (positive predictive value for UTI around 50%) Performed By: #### u rinalysiswcul ####[facility] [id number] [place], [place], #### C URINE ####[facility] [address] [place], [place] [id number] U LEUK Negative Normal Negative The [facility] Comment on above: Order Comment: A neg ative leukocyte esterase AND negative nitrite test or absence of pyuria (urine WBC count <= 5-10) make a UTI (urinary tract infection) very unlikely in a non-neutropenic adult (<=5% likelihood in many studies). A positive leukocyte esterase, nitrite and/or pyuria is a nonspecific result. This can be seen in conditions other than a UTI e.g. asymptomatic bacteriuria, gynecologic infections, sexually transmitted infections, and noninfectious conditions (positive predictive value for UTI around 50%) Performed By: #### u rinalysiswcul ####[facility] PATHOLOGY [id number] [place], [place], #### C URINE ####[facility] [address] [place], [place] [id number] U MUCOUS Present Normal The [facility] Comment on above: Order Comment: A neg ative leukocyte esterase AND negative nitrite test or absence of pyuria (urine WBC count <= 5-10) make a UTI (urinary tract infection) very unlikely in a non-neutropenic adult (<=5% likelihood in many studies). A positive leukocyte esterase, nitrite and/or pyuria is a nonspecific result. This can be seen in conditions other than a UTI e.g. asymptomatic bacteriuria, gynecologic infections, sexually transmitted infections, and noninfectious conditions (positive predictive value for UTI around 50%) Performed By: #### u rinalysiswcul ####[facility] PATHOLOGY Y[address] [place] [address], [place], #### C URINE ####[facility] [address] [place], [place] [id number] U NITRITE Negative Normal Negative The [facility] Comment on above: Order Comment: A neg ative leukocyte esterase AND negative nitrite test or absence of pyuria (urine WBC count <= 5-10) make a UTI (urinary tract infection) very unlikely in a non-neutropenic adult (<=5% likelihood in many studies). A positive leukocyte esterase, nitrite and/or pyuria is a nonspecific result. This can be seen in conditions other than a UTI e.g. asymptomatic bacteriuria, gynecologic infections, sexually transmitted infections, and noninfectious conditions (positive predictive value for UTI around 50%) Performed By: #### u rinalysiswcul ####[facility] PATHOLOGY [id number] [place] [address], #### C URINE ####[address] U PH 6.0 Normal 5.0-8.0 [facility] Comment on above: Order Comment: A neg ative leukocyte esterase AND negative nitrite test or absence of pyuria (urine WBC count <= 5-10) make a UTI (urinary tract infection) very unlikely in a non-neutropenic adult (<=5% likelihood in many studies). A positive leukocyte esterase, nitrite and/or pyuria is a nonspecific result. This can be seen in conditions other than a UTI e.g. asymptomatic bacteriuria, gynecologic infections, sexually transmitted infections, and noninfectious conditions (positive predictive value for UTI around 50%) Performed By: #### u rinalysiswcul ####[facility] [id number] [place], [place], #### C URINE ####[facility] [address] [place], [place] [id number] U RBC 11-30 Abnormal 0-2 [facility] Comment on above: Order Comment: A neg ative leukocyte esterase AND negative nitrite test or absence of pyuria (urine WBC count <= 5-10) make a UTI (urinary tract infection) very unlikely in a non-neutropenic adult (<=5% likelihood in many studies). A positive leukocyte esterase, nitrite and/or pyuria is a nonspecific result. This can be seen in conditions other than a UTI e.g. asymptomatic bacteriuria, gynecologic infections, sexually transmitted infections, and noninfectious conditions (positive predictive value for UTI around 50%) Performed By: #### u rinalysiswcul ####[facility] PATH[facility] [id number] [place], [place], #### C URINE ####[facility] [address] [place], [place] [id number] U SG 1.031 High <=1.030 [facility] Comment on above: Order Comment: A neg ative leukocyte esterase AND negative nitrite test or absence of pyuria (urine WBC count <= 5-10) make a UTI (urinary tract infection) very unlikely in a non-neutropenic adult (<=5% likelihood in many studies). A positive leukocyte esterase, nitrite and/or pyuria is a nonspecific result. This can be seen in conditions other than a UTI e.g. asymptomatic bacteriuria, gynecologic infections, sexually transmitted infections, and noninfectious conditions (positive predictive value for UTI around 50%) Performed By: #### u rinalysiswcul ####[facility] PATH[facility] [id number] [place], [place], #### C URINE ####[facility] Ax[address]j9[address] [place], [place] U UROBILI 3.0 mg/dL Abnormal Negative [facility] Comment on above: Order Comment: A neg ative leukocyte esterase AND negative nitrite test or absence of pyuria (urine WBC count <= 5-10) make a UTI (urinary tract infection) very unlikely in a non-neutropenic adult (<=5% likelihood in many studies). A positive leukocyte esterase, nitrite and/or pyuria is a nonspecific result. This can be seen in conditions other than a UTI e.g. asymptomatic bacteriuria, gynecologic infections, sexually transmitted infections, and noninfectious conditions (positive predictive value for UTI around 50%) Performed By: #### u rinalysiswcul ####[facility] PATH[facility] [id number] [place], [place], #### C URINE ####[facility] Vmsqlksbg6612 [place], [place] U WBC 6-10 Abnormal 0-2 The [facility] Comment on above: Order Comment: A neg ative leukocyte esterase AND negative nitrite test or absence of pyuria (urine WBC count <= 5-10) make a UTI (urinary tract infection) very unlikely in a non-neutropenic adult (<=5% likelihood in many studies). A positive leukocyte esterase, nitrite and/or pyuria is a nonspecific result. This can be seen in conditions other than a UTI e.g. asymptomatic bacteriuria, gynecologic infections, sexually transmitted infections, and noninfectious conditions (positive predictive value for UTI around 50%) Performed By: #### u rinalysiswcul ####[facility] PATHOLOG[facility] [id number] [place] [address], #### C URINE ####[facility] Nadf[address]az79[address] [place], [place] URINE CULTUREon 05-27-2024 Bacteria identified Cx Nom (U) C URINE: No growth of greater than 1,000 CFU/ml Normal The [facility] Comment on above: Performed By: #### u rinalysiswcul ####[facility] PATH[facility] [id number] [place] [address], #### C URINE ####[facility] Qbuxhzlac4315 [place], [place] XR ABDOMEN AP 1 VIEWon 05-27 XR ABDOMEN AP 1 VIEW Normal [facility] XR CHEST AP OR PA 1 VIEWon 0 05-27-2024 XR CHEST AP OR PA 1 VIEW Normal [facility] XR CHEST AP OR PA 1 VIEW Normal [facility] XR CHEST AP OR PA 1 VIEW Normal [facility] XR CHEST AP OR PA 1 VIEW Normal [facility] XR Chest Single viewon 05-27 EXAMINATION: XR CHES T AP OR PA 1 VIEW 05/27/2024 02:20 AM CLINICAL HISTORY: Acute HYpoxia ASSOCIATED DIAGNOSIS: Acute HYpoxia ORDERING PROVIDER: NIK KC TECHNOLOGISTS NOTE: COMPARISON: XR CHEST AP OR PA 1 VIEW 05/26/2024, 8:31 PM XR CHEST AP OR PA 1 VIEW 2024, 6:34 AM FINDINGS: Lines, tubes, and devices: None. Lungs and pleura: Stable small right pleural effusion. Bibasilar atelectasis, similar to prior. No pneumothorax. Cardiomediastinal silhouette: Stable appearance of cardiomediastinal silhouette. Atherosclerotic calcification of the aortic arch. Musculoskeletal: Unchanged acute mildly displaced fractures of several right lateral ribs, with internal fixation of the lower right ribs. Right chest wall emphysema and overlying cutaneous joel. IMPRESSION: No interval change from prior exam. MACRO: None RADIOLOGY Chema Garvey MD - 05/27/2024 EXAMINATION: XR CHEST AP OR PA 1 VIEW 05/27/2024 02:20 AM CLINICAL HISTORY: Acute HYpoxia ASSOCIATED DIAGNOSIS: Acute HYpoxia ORDERING PROVIDER: NIK KC TECHNNINOSKA NOTE: COMPARISON: XR CHEST AP OR PA 1 VIEW 05/26/2024, 8:31 PM XR CHEST AP OR PA 1 VIEW 2024, 6:34 AM FINDINGS: Lines, tubes, and devices: None. Lungs and pleura: Stable small right pleural effusion. Bibasilar atelectasis, similar to prior. No pneumothorax. Cardiomediastinal silhouette: Stable appearance of cardiomediastinal silhouette. Atherosclerotic calcification of the aortic arch. Musculoskeletal: Unchanged acute mildly displaced fractures of several right lateral ribs, with internal fixation of the lower right ribs. Right chest wall emphysema and overlying cutaneous joel. IMPRESSION: No interval change from prior exam. MACRO: None [facility] Study observation (narrative) [facility] XR Chest Single viewOrdered By: Chema Garvey on 05-27-2024 [facility] Work Phone: Assessment AND Plan Noteon 0 05-26-2024 [employer]ush[employer] Maker Hand Authentication Interface Message Text -likely in setting of anticholinergics and critical illness -last BM 05/23, patient passing gas this morning Plan: -continue senna daily Normal The [facility] Cushion Maker Hand Authentication Interface Message Text -in setting of acute hypoxic respiratory failure and pneumothorax -next of kin is Ilana Michelle (spouse) and then son Chente Vaughn (numbers in chart) -did not address code status Normal The [facility] Cushion Maker Hand Authentication Interface Message Text -in setting of pneumothrorax and rib fractures Normal The [facility] Cushion Maker Hand Authentication Interface Message Text -appears to be improving on imaging Normal The [facility] Cushion Maker Hand Authentication Interface Message Text -now s/p rib plating and rib block, likely cause of hypoxic respiratory failure Normal The [facility] Cushion Maker Hand Authentication Interface Message Text Normal The [facility] BASIC METABOLIC PANELon 09-2 Anion gap [Moles/Vol] 13 mmol/L Normal 10-20 [facility] Comment on above: Performed By: #### CHI Cronin CH8 ####[facility] [id number] [place], [place], Calcium [Mass/Vol] 8.3 mg/dL Low 8.6-10.3 The [facility] Comment on above: Performed By: #### CHI Cronin CH8 ####S PATHOLOGY [id number] [place], [place], Chloride [Moles/Vol] 102 mmol/L Normal 98-107 [facility] Comment on above: Performed By: #### CHI Cronin CH8 ####S PATHOLOGY GANEIDIKMS9638 [place], [place], CO2 [Moles/Vol] 31 mmol/L Normal 21-31 The [facility] Comment on above: Performed By: ###CHI Holder CH8 ####[facility] PATHOLOGY UCUUEUYWSS6000 [place], [place], Creatinine [Mass/Vol] 0.66 mg/dL Low 0.70-1.30 [facility] Comment on above: Performed By: ###CHI Holder CH8 ####S PATHOLOGY WOEWSGPYKZ6897 [place], ESTIMATED GFR (CKD-EPI) 93 mL/min/1.73sqm Normal >=60 [facility] Comment on above: Result Comment: 2020 CKD EPI Equation using Creatinine without RaceComment: Estimated glomerular filtration rate (eGFR) is calculated without a race coefficient. Values should be interpreted in the context of the patient's full clinical presentation.Reference:1. Rishi Jose, Jorge M, Nic SILVA, et al.. A Unifying Approach for GFR Estimation: Recommendations of the NKF-ASN Task Force on Reassessing the Inclusion of Race in Diagnosing Kidney Disease. [place] Journal of Kidney Diseases 2021;79(2):268-88.e1.2. N Engl J Med 2020 Vol. 385 Issue 19 Pages 7852-6791 Performed By: #### CHI Cronin CH8 ####[facility] [id number] [place], [place], Glucose [Mass/Vol] 91 mg/dL Normal 74-109 [facility] Comment on above: Performed By: #### CHI Cronin CH8 ####[facility] BPNYCGPTXK8594 [place], [place], Potassium [Moles/Vol] 3.7 mmol/L Normal 3.5-5.0 [facility] Comment on above: Performed By: #### CHI Cronin CH8 ####S PATHOLOGY THCKBWAWZM1306 [place], [place], Sodium [Moles/Vol] 142 mmol/L Normal 136-145 [facility] Comment on above: Performed By: #### CHI Cronin CH8 ####[facility] HPSBNLYDVF7532 [place], [place], Urea nitrogen [Mass/Vol] 23 mg/dL Normal 7-25 [facility] Comment on above: Performed By: #### CHI Cronin CH8 ####[facility] QXNPSYPIFJ5578 [place], [place], COMPLETE BLOOD COUNTon 05-26 Erythrocyte distribution width (RBC) [Ratio] 15.5 % High 11.5-14.5 [facility] Comment on above: Performed By: #### Rebeca BC ####[facility] [id number] [place], [place], Hematocrit (Bld) [Volume fraction] 29.3 % Low 41.0-53.0 [facility] Comment on above: Performed By: #### Rebeca BC ####[facility] ARHUXQAYYA2607 [place], [place], Hemoglobin (Bld) [Mass/Vol] 9.5 g/dL Low 13.9-16.3 The [facility] Comment on above: Performed By: #### C BC ####[facility] PATH[facility] [id number] [place], [place], MCH (RBC) [Entitic mass] 31.4 pg Normal 26.0-34.0 The [facility] Comment on above: Performed By: #### C BC ####[facility] PATH[facility] [id number] [place], MCHC (RBC) [Mass/Vol] 32.6 g/dL Normal 32.0-35.9 [facility] Comment on above: Performed By: #### C BC ####[facility] [id number] [place], MCV (RBC) [Entitic vol] 96 fL Normal 80-100 [facility] Comment on above: Performed By: #### C BC ####[facility] [id number] [place], Platelet mean volume (Bld) [Entitic vol] 6.2 fL Low 7.5-11.2 The [facility] Comment on above: Performed By: #### C BC ####[facility] [id number] [place], Platelets (Bld) [#/Vol] 439 10*3/uL High 150-400 [facility] Comment on above: Performed By: #### C BC ####[facility] [id number] [place], RBC (Bld) [#/Vol] 3.04 10*6/uL Low 4.50-5.90 [facility] Comment on above: Performed By: #### C BC ####[facility] [id number] [place], WBC (Bld) [#/Vol] 8.8 10*3/uL Normal 4.5-11.5 [facility] Comment on above: Performed By: #### C BC ####[facility] PATH[facility] [id number] [place], [place], Consultson 05-26-2024 [employer] Maker Hand Authentication Interface Message Text Normal The [facility] MAGNESIUMon 05-26-2024 Magnesium [Mass/Vol] 2.2 mg/dL Normal 1.9-2.7 [facility] Comment on above: Performed By: #### CHI Cronin CH8 ####[facility] [id number] [place], [place], PHOSPHORUSon 05-26-2024 Phosphate [Mass/Vol] 3.4 mg/dL Normal 2.5-5.0 [facility] Comment on above: Performed By: #### CHI Cronin CH8 ####[facility] CJISTEQMEL5546 [place], [place], Progress Noteson 05-26-2024 [employer]ush[employer] Maker Hand Authentication Interface Message Text Normal [facility] Cushion Maker Hand Authentication Interface Message Text Normal [facility] Cushion Maker Hand Authentication Interface Message Text Normal [facility] XR CHEST AP OR PA 1 VIEWon 0 05-26-2024 XR CHEST AP OR PA 1 VIEW Normal [facility] XR Chest Single viewon 05-26 EXAMINATION: XR CHES T AP OR PA 1 VIEW 05/26/2024 08:30 PM CLINICAL HISTORY: tachypnea and new tachycardia ASSOCIATED DIAGNOSIS: tachypnea and new tachycardia ORDERING PROVIDER: LINO ARMIJO TECHNOLOGISTS NOTE: COMPARISON: XR CHEST AP OR PA 1 VIEW 2024, 6:34 AM FINDINGS: Lines, tubes, and devices: None. Lungs and pleura: Stable small right pleural effusion. Bibasilar atelectasis, similar to prior. No focal consolidation or pneumothorax. Cardiomediastinal silhouette: Normal cardiomediastinal silhouette. Atherosclerotic calcification of the aortic arch. Musculoskeletal: Unchanged acute mildly displaced fractures of several right lateral ribs, with internal fixation of the lower right ribs. Right chest wall emphysema and overlying cutaneous joel IMPRESSION: No sign of interval change compared to prior exam. MACRO: None RADIOLOGY Chema Garvey MD - 05/26/2024 EXAMINATION: XR CHEST AP OR PA 1 VIEW 05/26/2024 08:30 PM CLINICAL HISTORY: tachypnea and new tachycardia ASSOCIATED DIAGNOSIS: tachypnea and new tachycardia ORDERING PROVIDER: LINO NEWELLRENU TECHNOLOGISTS NOTE: COMPARISON: XR CHEST AP OR PA 1 VIEW 2024, 6:34 AM FINDINGS: Lines, tubes, and devices: None. Lungs and pleura: Stable small right pleural effusion. Bibasilar atelectasis, similar to prior. No focal consolidation or pneumothorax. Cardiomediastinal silhouette: Normal cardiomediastinal silhouette. Atherosclerotic calcification of the aortic arch. Musculoskeletal: Unchanged acute mildly displaced fractures of several right lateral ribs, with internal fixation of the lower right ribs. Right chest wall emphysema and overlying cutaneous joel IMPRESSION: No sign of interval change compared to prior exam. MACRO: None [facility] Study observation (narrative) [facility] XR Chest Single viewOrdered By: Chema Garvey on 05-26-2024 [employer] Work Phone: 1:1 Interactionon 2024 Cushion Maker Hand Authentication Interface Message Text Normal The [facility] Assessment AND Plan Noteon 0 2024 [employer]ush[employer] Maker Hand Authentication Interface Message Text -appears to be improving on imaging Normal The [facility] Cushion Maker Hand Authentication Interface Message Text -in setting of acute hypoxic respiratory failure and pneumothorax -next of kin is Ilana Michelle (spouse) and then son Chente Vaughn (numbers in chart) -did not address code status Normal The [facility] Cushion Maker Hand Authentication Interface Message Text -likely in setting of anticholinergics and critical illness -last BM 05/23 Plan: -change senna to daily, if no BM today increase to bid -consider bisacodyl suppository prn Normal The [facility] Cushion Maker Hand Authentication Interface Message Text -in setting of pneumothrorax and rib fractures Normal The [facility] Cushion Maker Hand Authentication Interface Message Text -now s/p rib plating and rib block, likely cause of hypoxic respiratory failure Normal The [facility] Cushion Maker Hand Authentication Interface Message Text Normal The [facility] BASIC METABOLIC PANELon 05-03 Anion gap [Moles/Vol] 10 mmol/L Normal 10-20 [facility] Comment on above: Performed By: #### M G, CH8, PHOS ####[facility] [id number] [place], [address] Calcium [Mass/Vol] 8.2 mg/dL Low 8.6-10.3 [facility] Comment on above: Performed By: #### AMMON Cronin, PHOS ####[facility] [id number] [place], Chloride [Moles/Vol] 100 mmol/L Normal 98-107 [facility] Comment on above: Performed By: #### AMMON Cronin, PHOS ####[facility] [id number] [place], CO2 [Moles/Vol] 33 mmol/L High 21-31 [facility] Comment on above: Performed By: #### AMMON Cronin, PHOS ####[facility] [id number] [place], Creatinine [Mass/Vol] 0.68 mg/dL Low 0.70-1.30 [facility] Comment on above: Performed By: #### AMMON Cronin, PHOS ####[facility] [id number] [place], ESTIMATED GFR (CKD-EPI) 92 mL/min/1.73sqm Normal >=60 [facility] Comment on above: Result Comment: 2020 CKD EPI Equation using Creatinine without RaceComment: Estimated glomerular filtration rate (eGFR) is calculated without a race coefficient. Values should be interpreted in the context of the patient's full clinical presentation.Reference:1. Rishi C, Jorge M, Nic SILVA, et al.. A Unifying Approach for GFR Estimation: Recommendations of the NKF-ASN Task Force on Reassessing the Inclusion of Race in Diagnosing Kidney Disease. Citizen [place] Journal of Kidney Diseases 2021;79(2):268-88.e1.2. N Engl J Med 1 Vol. 385 Issue 19 Pages 1426-3964 Performed By: #### AMMON Cronin, RADS ####[facility] PLICAUVQKE8784 [place], Glucose [Mass/Vol] 80 mg/dL Normal 74-109 [facility] Comment on above: Performed By: #### AMMON Cronin, PHOS ####[facility] [id number] [place], Potassium [Moles/Vol] 4.3 mmol/L Normal 3.5-5.0 [facility] Comment on above: Result Comment: Hemo lysis present Performed By: #### AMMON Cronin, PHOAlfonzo ####[facility] [id number] [place], Sodium [Moles/Vol] 139 mmol/L Normal 136-145 [facility] Comment on above: Performed By: #### AMMON Cronin, PHOAlfonzo ####[facility] [id number] [place], Urea nitrogen [Mass/Vol] 25 mg/dL Normal 7-25 [facility] Comment on above: Performed By: #### AMMON Cronin, CHI ####[facility] [id number] [place], [place], BLOOD GAS, ARTERIALon 2023 CR JOSEPH 4.7 mmol/L High -2.0-3.0 [facility] Comment on above: Performed By: #### C R BGA ####[facility] [id number] [place], [place], CR PCO2 46.5 mm Hg High 35.0-45.0 [facility] Comment on above: Performed By: #### C R BGA ####[facility] [id number] [place], CR PHA 7.416 Normal 7.350-7.450 [facility] Comment on above: Performed By: #### C R BGA ####[facility] [id number] [place], CR PO2 64 mm Hg Low 80-100 [facility] Comment on above: Performed By: #### C R BGA ####[facility] [id number] [place], FIO2 (CATEGORY) 50% Normal [facility] Comment on above: Performed By: #### C R BGA ####[facility] [id number] [place] [address], HCO3 (Bld) [Moles/Vol] 29 mmol/L High 21-28 [facility] Comment on above: Performed By: #### C R BGA ####[facility] [id number] [place], MODE Nasal Canula Normal [facility] Comment on above: Result Comment: High flow 40 Liters Performed By: #### C R BGA ####[facility] [id number] [place] [address], Oxygen saturation in Blood 91.8 % Low 95.0-99.0 [facility] Comment on above: Performed By: #### C R BGA ####[facility] [id number] [place] [address], CR JOSEPH 5.3 mmol/L High -2.0-3.0 [facility] Comment on above: Performed By: #### C R BGA ####[facility] [id number] [place] [address], CR PCO2 43.7 mm Hg Normal 35.0-45.0 [facility] Comment on above: Performed By: #### C R BGA ####[facility] PATHOLOGY [id number] [place] [address], CR PHA 7.444 Normal 7.350-7.450 [facility] Comment on above: Performed By: #### C R BGA ####[facility] PATHOLOGY [id number] [place] [address], CR PO2 70 mm Hg Low 80-100 [facility] Comment on above: Performed By: #### C R BGA ####S PATHOLOGY [id number] [place], [place], FIO2 (CATEGORY) 44% Normal [facility] Comment on above: Result Comment: 6 LP M Performed By: #### C R BGA ####S PATHOLOGY [id number] [place], HCO3 (Bld) [Moles/Vol] 30 mmol/L High 21-28 [facility] Comment on above: Performed By: #### C R BGA ####[facility] PATHOLOGY [id number] [place], [place], MODE BIPAP Normal [facility] Comment on above: Result Comment: 18/04 Performed By: #### C R BGA ####[facility] PATHOLOGY [id number] [place], Oxygen saturation in Blood 94.5 % Low 95.0-99.0 [facility] Comment on above: Performed By: #### C R BGA ####[facility] PATHOLOGY [id number] [place] [address], CR JOSEPH 6.1 mmol/L High -2.0-3.0 [facility] Comment on above: Performed By: #### C R BGA ####[facility] PATHOLOGY [id number] [place] [address], CR PCO2 43.7 mm Hg Normal 35.0-45.0 [facility] Comment on above: Performed By: #### C R BGA ####[facility] PATHOLOGY [id number] [place] [address], CR PHA 7.454 High 7.350-7.450 [facility] Comment on above: Performed By: #### C R BGA ####[facility] PATHOLOGY [id number] [place] [address], CR PO2 64 mm Hg Low 80-100 [facility] Comment on above: Performed By: #### C R BGA ####[facility] PATHOLOGY [id number] [place] [address], FIO2 (CATEGORY) 5 LPM Normal [facility] Comment on above: Result Comment: 6LPM Performed By: #### C R BGA ####S PATHOLOGY [id number] [place], HCO3 (Bld) [Moles/Vol] 30 mmol/L High 21-28 [facility] Comment on above: Performed By: #### C R BGA ####[facility] PATHOLOGY [id number] [place] [address], MODE BIPAP Normal [facility] Comment on above: Performed By: #### C R BGA ####[facility] PATHOLOGY [id number] [place], Oxygen saturation in Blood 93.1 % Low 95.0-99.0 [facility] Comment on above: Performed By: #### C R BGA ####[facility] PATHOLOGY [id number] [place], COMPLETE BLOOD COUNTon 05-25 Erythrocyte distribution width (RBC) [Ratio] 15.7 % High 11.5-14.5 [facility] Comment on above: Performed By: #### C BC ####[facility] PATHOLOGY [id number] [place], Hematocrit (Bld) [Volume fraction] 27.5 % Low 41.0-53.0 [facility] Comment on above: Performed By: #### C BC ####[facility] PATHOLOGY [id number] [place], Hemoglobin (Bld) [Mass/Vol] 9.1 g/dL Low 13.9-16.3 [facility] Comment on above: Performed By: #### C BC ####[facility] PATHOLOGY [id number] [place], MCH (RBC) [Entitic mass] 31.7 pg Normal 26.0-34.0 [facility] Comment on above: Performed By: #### C BC ####[facility] PATHOLOGY [id number] [place], MCHC (RBC) [Mass/Vol] 32.9 g/dL Normal 32.0-35.9 [facility] Comment on above: Performed By: #### C BC ####[facility] PATHOLOGY [id number] [place], MCV (RBC) [Entitic vol] 96 fL Normal 80-100 [facility] Comment on above: Performed By: #### C BC ####[facility] PATHOLOGY [id number] [place], Platelet mean volume (Bld) [Entitic vol] 6.7 fL Low 7.5-11.2 [facility] Comment on above: Performed By: #### C BC ####S PATHOLOGY [id number] [place], Platelets (Bld) [#/Vol] 386 10*3/uL Normal 150-400 [facility] Comment on above: Performed By: #### C BC ####S PATHOLOGY [id number] [place], RBC (Bld) [#/Vol] 2.86 10*6/uL Low 4.50-5.90 [facility] Comment on above: Performed By: #### C BC ####[facility] PATHOLOGY [id number] [place], WBC (Bld) [#/Vol] 9.8 10*3/uL Normal 4.5-11.5 [facility] Comment on above: Performed By: #### Rebeca BC ####[facility] PATHOLOGY [id number] [place], [place], Consultson 2024 [employer] Hand Authentication Interface Message Text Normal [facility] [employer] Hand Authentication Interface Message Text Normal [facility] MAGNESIUMon 2024 Magnesium [Mass/Vol] 2.2 mg/dL Normal 1.9-2.7 [facility] Comment on above: Result Comment: Hemo lysis present Performed By: #### AMMON Cronin, PHOS ####[facility] [id number] [place], PHOSPHORUSon 2024 Phosphate [Mass/Vol] 2.7 mg/dL Normal 2.5-5.0 [facility] Comment on above: Performed By: #### AMMON Cronin, PHOS ####[facility] PATH[facility] [id number] [place], [place], Progress Noteson 2024 [employer] Authentication Interface Message Text Normal [facility] XR CHEST AP OR PA 1 VIEWon 0 2024 XR CHEST AP OR PA 1 VIEW Normal [facility] XR Chest Single viewon 05-25 EXAMINATION: XR CHES T AP OR PA 1 VIEW 2024 06:33 AM CLINICAL HISTORY: respiratory distress ASSOCIATED DIAGNOSIS: respiratory distress ORDERING PROVIDER: LINO ARMIJO [employer] NOTE: COMPARISON: XR CHEST AP OR PA 1 VIEW 05/24/2024, 7:05 AM, XR CHEST AP OR PA 1 VIEW 05/23/2024, 3:[address] CHEST W/O CONTRAST 05/19/2024, 9:45 AM FINDINGS: Position and projection: AP erect. Limitations: None. Clinical considerations: Obtained from EMR. Lines, tubes, and devices: None. Cardiomediastinal silhouette: Normal heart size. Aorta: Atherosclerotic calcification. Lungs and pleura: Small right pleural effusion and mild scattered mid and lower right pulmonary subsegmental atelectasis. No pulmonary consolidation or pneumothorax. Osseous structures: Multiple acute right rib fractures with internal fixation of the lateral right 7th-10th ribs, left glenohumeral joint osteoarthritis and marked narrowing of the left subacromial space, compatible with a rotator cuff tear. Chest wall: Telemetry leads overlying the chest. IMPRESSION: 1. Status post recent chest trauma with multiple acute right rib fractures and internal fixation of the lateral right 7th-10th ribs. 2. Small right pleural effusion and mild scattered mid and lower right pulmonary subtalar atelectasis. 3. No pneumothorax. MACRO: None RADIOLOGY Gerber Mcdaniel, DO - 2024 EXAMINATION: XR CHEST AP OR PA 1 VIEW 2024 06:33 AM CLINICAL HISTORY: respiratory distress ASSOCIATED DIAGNOSIS: respiratory distress ORDERING PROVIDER: LINO ARMIJO [employer] NOTE: COMPARISON: XR CHEST AP OR PA 1 VIEW 05/24/2024, 7:05 AM, XR CHEST AP OR PA 1 VIEW 05/23/2024, 3:[address] CHEST W/O CONTRAST 05/19/2024, 9:45 AM FINDINGS: Position and projection: AP erect. Limitations: None. Clinical considerations: Obtained from EMR. Lines, tubes, and devices: None. Cardiomediastinal silhouette: Normal heart size. Aorta: Atherosclerotic calcification. Lungs and pleura: Small right pleural effusion and mild scattered mid and lower right pulmonary subsegmental atelectasis. No pulmonary consolidation or pneumothorax. Osseous structures: Multiple acute right rib fractures with internal fixation of the lateral right 7th-10th ribs, left glenohumeral joint osteoarthritis and marked narrowing of the left subacromial space, compatible with a rotator cuff tear. Chest wall: Telemetry leads overlying the chest. IMPRESSION: 1. Status post recent chest trauma with multiple acute right rib fractures and internal fixation of the lateral right 7th-10th ribs. 2. Small right pleural effusion and mild scattered mid and lower right pulmonary subtalar atelectasis. 3. No pneumothorax. MACRO: None [facility] Radiology Study observation (narrative) [employer] XR Chest Single viewOrdered By: Gerber Mcdaniel on 2024 [employer] Work Phone: 1:1 Interactionon 05-24-2024 [employer] Hand Authentication Interface Message Text Normal The [employer] [facility] BASIC METABOLIC PANELon 05-03 Anion gap [Moles/Vol] 14 mmol/L Normal 10-20 [facility] [employer] [facility] Comment on above: Performed By: #### C H8 ####S PATHOLOGY [id number] [place], Calcium [Mass/Vol] 8.1 mg/dL Low 8.6-10.3 [facility] [employer] [facility] Comment on above: Performed By: #### C H8 ####S PATHOLOGY [id number] [place], Chloride [Moles/Vol] 99 mmol/L Normal 98-107 The [employer] [facility] Comment on above: Performed By: #### C H8 ####[facility] [id number] [place], CO2 [Moles/Vol] 30 mmol/L Normal 21-31 The [employer] [facility] Comment on above: Performed By: #### C H8 ####[facility] PATH[facility] [id number] [place], Creatinine [Mass/Vol] 0.62 mg/dL Low 0.70-1.30 [facility] [employer] [facility] Comment on above: Performed By: #### C H8 ####[facility] [id number] [place], ESTIMATED GFR (CKD-EPI) 95 mL/min/1.73sqm Normal >=60 The [employer] [facility] Comment on above: Result Comment: 2020 CKD EPI Equation using Creatinine without RaceComment: Estimated glomerular filtration rate (eGFR) is calculated without a race coefficient. Values should be interpreted in the context of the patient's full clinical presentation.Reference:1. Rishi Jose, Jorge M, Nic SILVA, et al.. A Unifying Approach for GFR Estimation: Recommendations of the NKF-ASN Task Force on Reassessing the Inclusion of Race in Diagnosing Kidney Disease. Citizen Of [place] Journal of Kidney Diseases 2021;79(2):268-88.e1.2. N Engl J Med 2020 Vol. 385 Issue 19 Pages 9187-5628 Performed By: #### C H8 ####[facility] [id number] [place], Glucose [Mass/Vol] 108 mg/dL Normal 74-109 [facility] Comment on above: Performed By: #### C H8 ####[facility] [id number] [place], Potassium [Moles/Vol] 3.9 mmol/L Normal 3.5-5.0 [facility] Comment on above: Performed By: #### C H8 ####S PATHOLOGY [id number] [place], Sodium [Moles/Vol] 139 mmol/L Normal 136-145 [facility] Comment on above: Performed By: #### C H8 ####S PATHOLOGY [id number] [place], Urea nitrogen [Mass/Vol] 24 mg/dL Normal 7-25 [facility] Comment on above: Performed By: #### C H8 ####[facility] [id number] [place], Anion gap [Moles/Vol] 11 mmol/L Normal 10-20 [facility] Comment on above: Performed By: #### Paulie G CH8, PHOS ####[facility] [id number] [place], Calcium [Mass/Vol] 8.3 mg/dL Low 8.6-10.3 [facility] Comment on above: Performed By: #### AMMON Cronin, PHOS ####[facility] [id number] [place], Chloride [Moles/Vol] 98 mmol/L Normal 98-107 [facility] Comment on above: Performed By: #### AMMON Cronin, PHOS ####[facility] [id number] [place], CO2 [Moles/Vol] 32 mmol/L High 21-31 The [facility] Comment on above: Performed By: #### AMMON Cronin, PHOS ####[facility] [id number] [place], Creatinine [Mass/Vol] 0.66 mg/dL Low 0.70-1.30 [facility] Comment on above: Performed By: #### AMMON Cronin, PHOS ####[facility] [id number] [place], ESTIMATED GFR (CKD-EPI) 94 mL/min/1.73sqm Normal >=60 The [facility] Comment on above: Result Comment: 2020 CKD EPI Equation using Creatinine without RaceComment: Estimated glomerular filtration rate (eGFR) is calculated without a race coefficient. Values should be interpreted in the context of the patient's full clinical presentation.Reference:1. Rishi C, Jorge M, Nic SILVA, et al.. A Unifying Approach for GFR Estimation: Recommendations of the NKF-ASN Task Force on Reassessing the Inclusion of Race in Diagnosing Kidney Disease. Citizen Of [place] Journal of Kidney Diseases 2021;79(2):268-88.e1.2. N Engl J Med 2020 Vol. 385 Issue 19 Pages 7086-5331 Performed By: #### AMMON Cronin, PHOS ####[facility] [id number] [place], Glucose [Mass/Vol] 99 mg/dL Normal 74-109 The [facility] Comment on above: Performed By: #### AMMON Cronin, PHOS ####[facility] [id number] [place], Potassium [Moles/Vol] 5.4 mmol/L High 3.5-5.0 [facility] Comment on above: Result Comment: Hemo lysis present Performed By: #### AMMON Cronin, CHI ####[facility] PATHOLOGY [id number] [place], Sodium [Moles/Vol] 136 mmol/L Normal 136-145 The [facility] Comment on above: Performed By: #### AMMON Cronin, CHI ####[facility] PATHOLOGY [id number] [place], Urea nitrogen [Mass/Vol] 25 mg/dL Normal 7-25 [facility] Comment on above: Performed By: #### AMMON Cronin, CHI ####[facility] PATHOLOGY [id number] [place], BLOOD GAS, ARTERIALon 2023 CR JOSEPH 5.6 mmol/L High -2.0-3.0 The [facility] Comment on above: Performed By: #### Rebeca R BGA ####[facility] PATHOLOGY [id number] [place], [place], CR PCO2 48.8 mm Hg High 35.0-45.0 The [facility] Comment on above: Performed By: #### Rebeca R BGA ####[facility] PATHOLOGY [id number] [place], CR PHA 7.412 Normal 7.350-7.450 The [facility] Comment on above: Performed By: #### C R BGA ####[facility] PATHOLOGY [id number] [place], CR PO2 86 mm Hg Normal 80-100 The [facility] Comment on above: Performed By: #### C R BGA ####S PATHOLOGY [id number] [place], FIO2 (CATEGORY) 50% Normal The [facility] Comment on above: Performed By: #### C R BGA ####[facility] PATHOLOGY [id number] [place], HCO3 (Bld) [Moles/Vol] 31 mmol/L High 21-28 [facility] Comment on above: Performed By: #### C R BGA ####[facility] PATHOLOGY [id number] [place], MODE Nasal Canula Normal [facility] Comment on above: Result Comment: HHFN C 60 LPM Performed By: #### C R BGA ####[facility] PATHOLOGY [id number] [place], Oxygen saturation in Blood 96.7 % Normal 95.0-99.0 [facility] Comment on above: Performed By: #### C R BGA ####[facility] PATHOLOGY [id number] [place], CR JOSEPH 5.9 mmol/L High -2.0-3.0 [facility] Comment on above: Performed By: #### C R BGA ####[facility] PATHOLOGY [id number] [place] [address], CR PCO2 45.7 mm Hg High 35.0-45.0 [facility] Comment on above: Performed By: #### C R BGA ####[facility] PATHOLOGY [id number] [place], CR PHA 7.438 Normal 7.350-7.450 [facility] Comment on above: Performed By: #### C R BGA ####[facility] PATHOLOGY [id number] [place], CR PO2 72 mm Hg Low 80-100 [facility] Comment on above: Performed By: #### C R BGA ####S PATHOLOGY [id number] [place], FIO2 (CATEGORY) 40% Normal [facility] Comment on above: Performed By: #### C R BGA ####S PATHOLOGY [id number] [place], HCO3 (Bld) [Moles/Vol] 30 mmol/L High 21-28 [facility] Comment on above: Performed By: #### C R BGA ####S PATHOLOGY [id number] [place], MODE Nasal Canula Normal [facility] Comment on above: Result Comment: high flow Performed By: #### C R BGA ####[facility] PATHOLOGY [id number] [place], Oxygen saturation in Blood 94.5 % Low 95.0-99.0 [facility] Comment on above: Performed By: #### C R BGA ####[facility] PATHOLOGY [id number] [place], CR JOSEPH 6.1 mmol/L High -2.0-3.0 [facility] Comment on above: Performed By: #### C R BGA ####[facility] PATHOLOGY [id number] [place] [address], CR PCO2 46.9 mm Hg High 35.0-45.0 [facility] Comment on above: Performed By: #### C R BGA ####[facility] PATHOLOGY [id number] [place] [address], CR PHA 7.435 Normal 7.350-7.450 [facility] Comment on above: Performed By: #### C R BGA ####[facility] PATHOLOGY [id number] [place] [address], CR PO2 63 mm Hg Low 80-100 The [facility] Comment on above: Performed By: #### C R BGA ####[facility] PATHOLOGY [id number] [place], FIO2 (CATEGORY) 4 LPM Normal [facility] Comment on above: Performed By: #### C R BGA ####[facility] PATHOLOGY [id number] [place], HCO3 (Bld) [Moles/Vol] 31 mmol/L High 21-28 [facility] Comment on above: Performed By: #### C R BGA ####[facility] PATHOLOGY [id number] [place], MODE Nasal Canula Normal [facility] Comment on above: Performed By: #### C R BGA ####[facility] PATHOLOGY [id number] [place] [address], Oxygen saturation in Blood 92.1 % Low 95.0-99.0 [facility] Comment on above: Performed By: #### C R BGA ####[facility] PATHOLOGY [id number] [place] [address], COMPLETE BLOOD COUNTon 05-24 Erythrocyte distribution width (RBC) [Ratio] 15.6 % High 11.5-14.5 [facility] Comment on above: Performed By: #### C BC ####[facility] PATHOLOGY [id number] [place] [address], Hematocrit (Bld) [Volume fraction] 30.1 % Low 41.0-53.0 [facility] Comment on above: Performed By: #### C BC ####[facility] PATHOLOGY [id number] [place] [address], Hemoglobin (Bld) [Mass/Vol] 9.9 g/dL Low 13.9-16.3 [facility] Comment on above: Performed By: #### C BC ####[facility] PATHOLOGY [id number] [place] [address], MCH (RBC) [Entitic mass] 30.5 pg Normal 26.0-34.0 [facility] Comment on above: Performed By: #### C BC ####[facility] PATHOLOGY [id number] [place] [address], MCHC (RBC) [Mass/Vol] 32.8 g/dL Normal 32.0-35.9 [facility] Comment on above: Performed By: #### C BC ####[facility] PATHOLOGY [id number] [place] [address], MCV (RBC) [Entitic vol] 93 fL Normal 80-100 The [facility] Comment on above: Performed By: #### C BC ####[facility] PATHOLOGY [id number] [place], Platelet mean volume (Bld) [Entitic vol] 7.2 fL Low 7.5-11.2 [facility] Comment on above: Performed By: #### C BC ####[facility] PATHOLOGY [id number] [place] [address], Platelets (Bld) [#/Vol] 396 10*3/uL Normal 150-400 [facility] Comment on above: Performed By: #### Rebeca BC ####S PATHOLOGY [id number] [place], RBC (Bld) [#/Vol] 3.25 10*6/uL Low 4.50-5.90 [facility] Comment on above: Performed By: #### Rebeca BC ####[facility] [id number] [place], WBC (Bld) [#/Vol] 12.4 10*3/uL High 4.5-11.5 [facility] Comment on above: Performed By: #### Rebeca BC ####S PATHOLOGY [id number] [place], [place], Consultson 05-24-2024 [employer] Authentication Interface Message Text Normal The [employer] [facility] [employer] Authentication Interface Message Text Normal The [facility] MAGNESIUMon 05-24-2024 Magnesium [Mass/Vol] 2.3 mg/dL Normal 1.9-2.7 [facility] Comment on above: Result Comment: Hemo lysis present Performed By: ###AMMON Holder, PHOS ####S PATHOLOGY [id number] [place], PHOSPHORUSon 05-24-2024 Phosphate [Mass/Vol] 3.0 mg/dL Normal 2.5-5.0 [facility] Comment on above: Performed By: ###AMMON Holder, PHOS ####S PATHOLOGY [id number] [place], [place], Progress Noteson 05-24-2024 [employer] Authentication Interface Message Text 0121 Pt needs to go on BiPap- no sitter available per nurse supervisor shop- this RN will sit outside pt room while on bipap and will have another RN or CP sit while attending to other pt. RT here in room and aware of plan. Normal The [employer] [facility] [employer] Hand Authentication Interface Message Text Normal [facility] [employer] Hand Authentication Interface Message Text Normal [facility] Cush[employer] Hand Authentication Interface Message Text Normal The [employer] [facility] XR CHEST AP OR PA 1 VIEWon 0 05-24-2024 XR CHEST AP OR PA 1 VIEW Normal The [facility] XR Chest Single viewon 05-24 EXAMINATION: XR CHES T AP OR PA 1 VIEW 05/24/2024 07:03 AM CLINICAL HISTORY: Chest tube removal; Pneumothorax ASSOCIATED DIAGNOSIS: Chest tube removal Pneumothorax ORDERING PROVIDER: K[employer]IE [employer] NOTE: COMPARISON: Comparison to 05/23/2024 FINDINGS: Lines, tubes, and devices: None. Lungs and pleura: No significant change in small right apical pneumothorax. Mild basilar streaky atelectatic changes are noted bilaterally. No significant interval change. Cardiomediastinal silhouette: Normal cardiomediastinal silhouette. Tortuous. Musculoskeletal: Internal fixation of right ribs is unchanged. Multiple rib fractures are noted with pleural thickening. No significant change IMPRESSION: No significant change in pulmonary status. MACRO: None RADIOLOGY Arielle Conklin MD - 05/24/2024 EXAMINATION: XR CHEST AP OR PA 1 VIEW 05/24/2024 07:03 AM CLINICAL HISTORY: Chest tube removal; Pneumothorax ASSOCIATED DIAGNOSIS: Chest tube removal Pneumothorax ORDERING PROVIDER: KATIE OBREGONHEIM TECHNOLOGISTS NOTE: COMPARISON: Comparison to 05/23/2024 FINDINGS: Lines, tubes, and devices: None. Lungs and pleura: No significant change in small right apical pneumothorax. Mild basilar streaky atelectatic changes are noted bilaterally. No significant interval change. Cardiomediastinal silhouette: Normal cardiomediastinal silhouette. Tortuous. Musculoskeletal: Internal fixation of right ribs is unchanged. Multiple rib fractures are noted with pleural thickening. No significant change IMPRESSION: No significant change in pulmonary status. MACRO: None [employer] Radiology Study observation (narrative) [employer] XR Chest Single viewOrdered By: Arielle Conklin on 05-24-2024 [employer] Work Phone: XR FEMUR LEFT 1 VIEWon 05-24 XR FEMUR LEFT 1 VIEW Normal [facility] [employer] [facility] [facility] XR PELVIS SINGLE VIEWon 05-03 XR PELVIS SINGLE VIEW Normal [facility] [facility] BASIC METABOLIC PANELon 05-03 Anion gap [Moles/Vol] 11 mmol/L Normal 10-20 [facility] [facility] Comment on above: Performed By: #### C H8, PHOS, MG ####[facility] [id number] [place], [place], Calcium [Mass/Vol] 8.1 mg/dL Low 8.6-10.3 [facility] Comment on above: Performed By: #### C H8, PHOS, MG ####[facility] [id number] [place], [place], Chloride [Moles/Vol] 98 mmol/L Normal 98-107 [facility] Comment on above: Performed By: #### C H8, PHOS, MG ####[facility] [id number] [place], CO2 [Moles/Vol] 31 mmol/L Normal 21-31 [facility] Comment on above: Performed By: #### C H8, PHOS, MG ####[facility] [id number] [place], [place], Creatinine [Mass/Vol] 0.58 mg/dL Low 0.70-1.30 [facility] Comment on above: Performed By: #### C H8, PHOS, MG ####[facility] [id number] [place], ESTIMATED GFR (CKD-EPI) 97 mL/min/1.73sqm Normal >=60 The [facility] Comment on above: Result Comment: 2020 CKD EPI Equation using Creatinine without RaceComment: Estimated glomerular filtration rate (eGFR) is calculated without a race coefficient. Values should be interpreted in the context of the patient's full clinical presentation.Reference:1. Rishi C, Jorge M, Nic SILVA, et al.. A Unifying Approach for GFR Estimation: Recommendations of the NKF-ASN Task Force on Reassessing the Inclusion of Race in Diagnosing Kidney Disease. Citizen [place] Journal of Kidney Diseases 2021;79(2):268-88.e1.2. N Engl J Med 2020 Vol. 385 Issue 19 Pages 3065-4846 Performed By: #### C H8, PHOS, MG ####[facility] [id number] [place], Glucose [Mass/Vol] 99 mg/dL Normal 74-109 [facility] Comment on above: Performed By: #### CHI Rich MG ####[facility] [id number] [place], Potassium [Moles/Vol] 4.0 mmol/L Normal 3.5-5.0 [facility] Comment on above: Performed By: #### CHI Rich MG ####[facility] [id number] [place], Sodium [Moles/Vol] 136 mmol/L Normal 136-145 [facility] Comment on above: Performed By: #### CHI Rich MG ####[facility] [id number] [place], Urea nitrogen [Mass/Vol] 21 mg/dL Normal 7-25 [facility] Comment on above: Performed By: #### CHI Rich MG ####[facility] [id number] [place], COMPLETE BLOOD COUNTon 05-23 Erythrocyte distribution width (RBC) [Ratio] 16.2 % High 11.5-14.5 [facility] Comment on above: Performed By: #### C BC ####[facility] [id number] [place], Hematocrit (Bld) [Volume fraction] 31.1 % Low 41.0-53.0 [facility] Comment on above: Performed By: #### C BC ####[facility] [id number] [place], Hemoglobin (Bld) [Mass/Vol] 10.2 g/dL Low 13.9-16.3 [facility] Comment on above: Performed By: #### C BC ####[facility] [id number] [place], MCH (RBC) [Entitic mass] 31.3 pg Normal 26.0-34.0 [facility] Comment on above: Performed By: #### C BC ####[facility] PATHOLOGY [id number] [place], MCHC (RBC) [Mass/Vol] 32.8 g/dL Normal 32.0-35.9 [facility] Comment on above: Performed By: #### C BC ####[facility] PATHOLOGY [id number] [place], MCV (RBC) [Entitic vol] 96 fL Normal 80-100 [facility] Comment on above: Performed By: #### C BC ####[facility] PATHOLOGY [id number] [place], Platelet mean volume (Bld) [Entitic vol] 6.7 fL Low 7.5-11.2 [facility] Comment on above: Performed By: #### C BC ####[facility] PATHOLOGY [id number] [place], Platelets (Bld) [#/Vol] 251 10*3/uL Normal 150-400 [facility] Comment on above: Performed By: #### C BC ####[facility] PATHOLOGY [id number] [place], RBC (Bld) [#/Vol] 3.26 10*6/uL Low 4.50-5.90 [facility] Comment on above: Performed By: #### C BC ####[facility] PATHOLOGY [id number] [place], WBC (Bld) [#/Vol] 10.3 10*3/uL Normal 4.5-11.5 [facility] Comment on above: Performed By: #### C BC ####[facility] PATHOLOGY [id number] [place], MAGNESIUMon 05-23-2024 Magnesium [Mass/Vol] 1.9 mg/dL Normal 1.9-2.7 The [facility] Comment on above: Performed By: #### C H8, PHOS, MG ####[facility] PATHOLOGY [id number] [place], PHOSPHORUSon 05-23-2024 Phosphate [Mass/Vol] 2.4 mg/dL Low 2.5-5.0 [facility] Comment on above: Performed By: #### C H8, CHI, ####[facility] [id number] [place], [address] Progress Noteson 05-23-2024 [employer] Authentication Interface Message Text Normal [facility] [employer] [facility] XR CHEST AP OR PA 1 VIEWon 0 05-23-2024 XR CHEST AP OR PA 1 VIEW Normal [facility] XR CHEST AP OR PA 1 VIEW Normal [facility] XR Chest Single viewon 05-23 EXAMINATION: XR CHES T AP OR PA 1 VIEW 05/23/2024 09:04 AM CLINICAL HISTORY: Pneumothorax; Pneumothorax assessment, post-procedure ASSOCIATED DIAGNOSIS: Pneumothorax Pneumothorax assessment, post-procedure ORDERING PROVIDER: MATT BARBA COMPARISON: XR CHEST AP OR PA 1 VIEW 05/22/2024, 7:05 AM FINDINGS: Lines, tubes, and devices: Interval removal of laterally directed right apical thoracostomy tube. Unchanged position of the other right apical thoracostomy tube. Lungs and pleura: Bibasilar heterogeneous opacities likely representing atelectasis. No appreciable effusion. Cardiomediastinal silhouette: Stable appearance of cardiomediastinal silhouette. Musculoskeletal: No significant interval change IMPRESSION: Interval removal of the bladder and right apical thoracostomy tube with small right apical pneumothorax noted. No appreciable left-sided pneumothorax. Otherwise, unchanged pulmonary findings. RADIOLOGY Vignesh Higuera MD - 05/23/2024 EXAMINATION: XR CHEST AP OR PA 1 VIEW 05/23/2024 09:04 AM CLINICAL HISTORY: Pneumothorax; Pneumothorax assessment, post-procedure ASSOCIATED DIAGNOSIS: Pneumothorax Pneumothorax assessment, post-procedure ORDERING PROVIDER: MATT BARBA COMPARISON: XR CHEST AP OR PA 1 VIEW 05/22/2024, 7:05 AM FINDINGS: Lines, tubes, and devices: Interval removal of laterally directed right apical thoracostomy tube. Unchanged position of the other right apical thoracostomy tube. Lungs and pleura: Bibasilar heterogeneous opacities likely representing atelectasis. No appreciable effusion. Cardiomediastinal silhouette: Stable appearance of cardiomediastinal silhouette. Musculoskeletal: No significant interval change IMPRESSION: Interval removal of the bladder and right apical thoracostomy tube with small right apical pneumothorax noted. No appreciable left-sided pneumothorax. Otherwise, unchanged pulmonary findings. [facility] observation (narrative) [employer] XR Chest Single viewOrdered By: Vignesh Higuera on 05-23-2024 [employer] Work Phone: BASIC METABOLIC PANELon 05-03 Anion gap [Moles/Vol] 9 mmol/L Low 10-20 [facility] Comment on above: Performed By: #### AMMON Cronin, PHOS ####[facility] [id number] [place], Calcium [Mass/Vol] 7.9 mg/dL Low 8.6-10.3 [facility] Comment on above: Performed By: #### AMMON Cronin, PHOS ####[facility] [id number] [place], Chloride [Moles/Vol] 101 mmol/L Normal 98-107 [facility] [employer] Comment on above: Performed By: #### AMMON Cronin, PHOS ####[facility] [id number] [place], CO2 [Moles/Vol] 30 mmol/L Normal 21-31 [facility] [employer] Comment on above: Performed By: #### Paulie Meade CH8, PHOS ####[facility] [id number] [place], Creatinine [Mass/Vol] 0.62 mg/dL Low 0.70-1.30 [facility] [facility] Comment on above: Performed By: #### Paulie Meade CH8, PHOS ####[facility] [id number] [place], ESTIMATED GFR (CKD-EPI) 95 mL/min/1.73sqm Normal >=60 [facility] Comment on above: Result Comment: 2020 CKD EPI Equation using Creatinine without RaceComment: Estimated glomerular filtration rate (eGFR) is calculated without a race coefficient. Values should be interpreted in the context of the patient's full clinical presentation.Reference:1. Rishi Jose, Jorge M, Nic SILVA, et al.. A Unifying Approach for GFR Estimation: Recommendations of the NKF-ASN Task Force on Reassessing the Inclusion of Race in Diagnosing Kidney Disease. Citizen [place] Journal of Kidney Diseases 2021;79(2):268-88.e1.2. N Engl J Med 2020 Vol. 385 Issue 19 Pages 4553-2951 Performed By: #### AMMON Cronin, PHOS ####[facility] [id number] [place], Glucose [Mass/Vol] 117 mg/dL High 74-109 [facility] Comment on above: Performed By: #### AMMON Cronin, PHOS ####[facility] [id number] [place], Potassium [Moles/Vol] 3.6 mmol/L Normal 3.5-5.0 [facility] Comment on above: Performed By: #### AMMON Cronin, PHOS ####[facility] [id number] [place], Sodium [Moles/Vol] 136 mmol/L Normal 136-145 [facility] Comment on above: Performed By: #### AMMON Cronin, PHOS ####[facility] [id number] [place], Urea nitrogen [Mass/Vol] 19 mg/dL Normal 7-25 [facility] Comment on above: Performed By: #### AMMON Cronin, PHOS ####[facility] [id number] [place], COMPLETE BLOOD COUNTon 05-22 Erythrocyte distribution width (RBC) [Ratio] 16.2 % High 11.5-14.5 [facility] Comment on above: Performed By: #### C BC ####[facility] [id number] [place], Hematocrit (Bld) [Volume fraction] 27.5 % Low 41.0-53.0 [facility] Comment on above: Performed By: #### C BC ####[facility] [id number] [place], Hemoglobin (Bld) [Mass/Vol] 9.3 g/dL Low 13.9-16.3 The [facility] Comment on above: Performed By: #### C BC ####[facility] PATHOLOGY [id number] [place], MCH (RBC) [Entitic mass] 31.8 pg Normal 26.0-34.0 The [facility] Comment on above: Performed By: #### C BC ####[facility] PATHOLOGY [id number] [place], MCHC (RBC) [Mass/Vol] 33.8 g/dL Normal 32.0-35.9 The [facility] Comment on above: Performed By: #### C BC ####[facility] PATHOLOGY [id number] [place], MCV (RBC) [Entitic vol] 94 fL Normal 80-100 The [facility] Comment on above: Performed By: #### C BC ####[facility] PATHOLOGY [id number] [place], Platelet mean volume (Bld) [Entitic vol] 6.5 fL Low 7.5-11.2 The [facility] Comment on above: Performed By: #### C BC ####[facility] PATHOLOGY [id number] [place], Platelets (Bld) [#/Vol] 214 10*3/uL Normal 150-400 The [facility] Comment on above: Performed By: #### C BC ####[facility] PATHOLOGY [id number] [place], RBC (Bld) [#/Vol] 2.93 10*6/uL Low 4.50-5.90 The [facility] Comment on above: Performed By: #### C BC ####[facility] PATHOLOGY [id number] [place], WBC (Bld) [#/Vol] 8.7 10*3/uL Normal 4.5-11.5 The [facility] Comment on above: Performed By: #### C BC ####S PATHOLOGY [id number] [place], MAGNESIUMon 09-21-2024 Magnesium [Mass/Vol] 2.1 mg/dL Normal 1.9-2.7 [facility] Comment on above: Performed By: #### M AMMON Meade, PHOS ####[facility] [id number] [place], PHOSPHORUSon 05-22-2024 Phosphate [Mass/Vol] 2.0 mg/dL Low 2.5-5.0 [facility] Comment on above: Performed By: #### M AMMON Meade, PHOS ####[facility] [id number] [place], [place], Progress Noteson 05-22-2024 [employer] Authentication Interface Message Text MADDIE catheter removed, blue tip in-tact. No signs of infection at site or hematoma formation. Adhesive bandage placed over puncture site. Rahul Azevedo DO Anesthesiology Normal [facility] [employer] Hand Authentication Interface Message Text Normal [facility] Progress Notes - NoteWritero n 05-22-2024 [employer] Authentication Interface Message Text [id number]: DO Wright notified of pt monitor alarming high HR. HR fluctuating between 115-130's. EKG obtained, BP 139/77(94) O2 94%. Pt alert and oriented. No new orders at this time. Normal [facility] [employer] XR CHEST AP OR PA 1 VIEWon 0 05-22-2024 XR CHEST AP OR PA 1 VIEW Normal [facility] XR Chest Single viewon 05-22 EXAMINATION: XR CHES T AP OR PA 1 VIEW 05/22/2024 07:04 AM CLINICAL HISTORY: Chest tube assessment ASSOCIATED DIAGNOSIS: Chest tube assessment ORDERING PROVIDER: NEYDA BOBBY COMPARISON: XR CHEST AP OR PA 1 VIEW 05/21/2024, 4:44 PM FINDINGS: Lines, tubes, and devices: -Stable position of the 2 large bore right-sided apical chest tubes. -Enteric feeding tube tube is courses below the GE junction with the tip outside of field of view. -Unchanged position of the left IJ approach central venous catheter with tip overlying the upper SVC. Lungs and pleura: No appreciable pneumothorax. Again seen bibasilar heterogeneous opacities left greater than right likely representing atelectasis. Bilateral costophrenic angles are excluded limiting evaluation for pleural effusion. Cardiomediastinal silhouette: Stable appearance of cardiomediastinal silhouette. Musculoskeletal: No significant interval change. IMPRESSION: Stable lines and medical devices with pulmonary findings similar to prior. No appreciable pneumothorax. RADIOLOGY Vignesh Higuera MD - 05/22/2024 EXAMINATION: XR CHEST AP OR PA 1 VIEW 05/22/2024 07:04 AM CLINICAL HISTORY: Chest tube assessment ASSOCIATED DIAGNOSIS: Chest tube assessment ORDERING PROVIDER: NEYDA BOBBY COMPARISON: XR CHEST AP OR PA 1 VIEW 05/21/2024, 4:44 PM FINDINGS: Lines, tubes, and devices: -Stable position of the 2 large bore right-sided apical chest tubes. -Enteric feeding tube tube is courses below the GE junction with the tip outside of field of view. -Unchanged position of the left IJ approach central venous catheter with tip overlying the upper SVC. Lungs and pleura: No appreciable pneumothorax. Again seen bibasilar heterogeneous opacities left greater than right likely representing atelectasis. Bilateral costophrenic angles are excluded limiting evaluation for pleural effusion. Cardiomediastinal silhouette: Stable appearance of cardiomediastinal silhouette. Musculoskeletal: No significant interval change. IMPRESSION: Stable lines and medical devices with pulmonary findings similar to prior. No appreciable pneumothorax. [employer] Radiology Study observation (narrative) [employer] XR Chest Single viewOrdered By: Vignesh Higuera on 05-22-2024 [employer] Work Phone: ANTI FXA-LMW HEPARINon 05-21 ANTI FXA-LMW HEPARIN ASSAY 0.37 IU/mL Normal [facility] Comment on above: Order Comment: The r ecommended therapeutic range for treatment of thrombosis with Low Molecular Weight Heparin is 0.5 - 1.0 IU/mLThe recommended range for VTE prophylaxis with Low Molecular Weight Heparin is 0.2 - 0.4 IU/mL. Performed By: #### A XL ####[facility] [id number] [place], [address] BASIC METABOLIC PANELon 05-03 Anion gap [Moles/Vol] 10 mmol/L Normal 10-20 [facility] Comment on above: Performed By: #### C H8, PHOS, MG ####[facility] [id number] [place], Calcium [Mass/Vol] 7.3 mg/dL Low 8.6-10.3 [facility] Comment on above: Performed By: #### C H8, PHOS, MG ####[facility] CWZESMITYF6367 [place], Chloride [Moles/Vol] 100 mmol/L Normal 98-107 [facility] Comment on above: Performed By: #### C H8, PHOS, MG ####[facility] [id number] [place], CO2 [Moles/Vol] 26 mmol/L Normal 21-31 [facility] Comment on above: Performed By: #### C H8, PHOS, MG ####[facility] [id number] [place], Creatinine [Mass/Vol] 0.81 mg/dL Normal 0.70-1.30 [facility] Comment on above: Performed By: #### C H8, PHOS, MG ####[facility] [id number] [place], ESTIMATED GFR (CKD-EPI) 88 mL/min/1.73sqm Normal >=60 [facility] Comment on above: Result Comment: 2020 CKD EPI Equation using Creatinine without RaceComment: Estimated glomerular filtration rate (eGFR) is calculated without a race coefficient. Values should be interpreted in the context of the patient's full clinical presentation.Reference:1. Rishi C, Jorge M, Nic SILVA, et al.. A Unifying Approach for GFR Estimation: Recommendations of the NKF-ASN Task Force on Reassessing the Inclusion of Race in Diagnosing Kidney Disease. Citizen [place] Journal of Kidney Diseases 2021;79(2):268-88.e1.2. N Engl J Med 2020 Vol. 385 Issue 19 Pages 3640-4279 Performed By: #### C H8, PHOS, MG ####[facility] [id number] [place], Glucose [Mass/Vol] 160 mg/dL High 74-109 [facility] Comment on above: Performed By: #### CHI Rich MG ####S PATHOLOGY [id number] [place], Potassium [Moles/Vol] 4.5 mmol/L Normal 3.5-5.0 [facility] Comment on above: Performed By: #### CHI Rich MG ####S PATHOLOGY [id number] [place], Sodium [Moles/Vol] 131 mmol/L Low 136-145 [facility] Comment on above: Performed By: #### CHI Rich MG ####S PATHOLOGY [id number] [place], Urea nitrogen [Mass/Vol] 23 mg/dL Normal 7-25 [facility] Comment on above: Performed By: #### CHI Rich MG ####[facility] PATHOLOGY [id number] [place], BLOOD GAS, ARTERIALon 2023 CR JOSEPH 2.9 mmol/L Normal -2.0-3.0 The [facility] Comment on above: Performed By: #### C R BGA ####[facility] [id number] [place], CR PCO2 34.6 mm Hg Low 35.0-45.0 [facility] Comment on above: Performed By: #### C R BGA ####[facility] [id number] [place], CR PHA 7.487 High 7.350-7.450 [facility] Comment on above: Performed By: #### C R BGA ####[facility] [id number] [place], CR PO2 83 mm Hg Normal 80-100 [facility] Comment on above: Performed By: #### C R BGA ####[facility] [id number] [place], FIO2 (CATEGORY) 50% Normal [facility] Comment on above: Performed By: #### C R BGA ####[facility] PATHOLOGY [id number] [place], HCO3 (Bld) [Moles/Vol] 26 mmol/L Normal 21-28 [facility] Comment on above: Performed By: #### C R BGA ####[facility] PATHOLOGY [id number] [place], MODE Vent Normal [facility] Comment on above: Performed By: #### C R BGA ####[facility] PATHOLOGY [id number] [place] [address], Oxygen saturation in Blood 97.4 % Normal 95.0-99.0 [facility] Comment on above: Performed By: #### C R BGA ####[facility] PATHOLOGY [id number] [place] [address], COMPLETE BLOOD COUNTon 05-21 Erythrocyte distribution width (RBC) [Ratio] 16.3 % High 11.5-14.5 [facility] Comment on above: Performed By: #### C BC ####[facility] PATHOLOGY [id number] [place] [address], Hematocrit (Bld) [Volume fraction] 25.4 % Low 41.0-53.0 [facility] Comment on above: Performed By: #### C BC ####[facility] PATHOLOGY [id number] [place], Hemoglobin (Bld) [Mass/Vol] 8.5 g/dL Low 13.9-16.3 [facility] Comment on above: Performed By: #### C BC ####[facility] PATHOLOGY [id number] [place], MCH (RBC) [Entitic mass] 31.3 pg Normal 26.0-34.0 [facility] Comment on above: Performed By: #### C BC ####[facility] PATHOLOGY [id number] [place] [address], MCHC (RBC) [Mass/Vol] 33.6 g/dL Normal 32.0-35.9 [facility] Comment on above: Performed By: #### C BC ####[facility] PATHOLOGY [id number] [place], MCV (RBC) [Entitic vol] 93 fL Normal 80-100 [facility] Comment on above: Performed By: #### C BC ####S PATHOLOGY [id number] [place], Platelet mean volume (Bld) [Entitic vol] 6.9 fL Low 7.5-11.2 [facility] Comment on above: Performed By: #### C BC ####[facility] PATHOLOGY [id number] [place], Platelets (Bld) [#/Vol] 159 10*3/uL Normal 150-400 [facility] Comment on above: Performed By: #### C BC ####[facility] PATHOLOGY [id number] [place], RBC (Bld) [#/Vol] 2.73 10*6/uL Low 4.50-5.90 [facility] Comment on above: Performed By: #### C BC ####[facility] PATHOLOGY [id number] [place], WBC (Bld) [#/Vol] 7.4 10*3/uL Normal 4.5-11.5 [facility] Comment on above: Performed By: #### C BC ####[facility] PATHOLOGY [id number] [place], Care Plan Noteon 05-21-2024 Cushion Maker Hand Authentication Interface Message Text Normal [facility] Consultson 05-21-2024 Cushion Maker Hand Authentication Interface Message Text Normal [facility] MAGNESIUMon 05-21-2024 Magnesium [Mass/Vol] 1.9 mg/dL Normal 1.9-2.7 [facility] Comment on above: Performed By: #### C H8, PHOS, MG ####[facility] PATHOLOGY [id number] [place], PHOSPHORUSon 05-21-2024 Phosphate [Mass/Vol] 2.7 mg/dL Normal 2.5-5.0 [facility] Comment on above: Performed By: #### C H8, MG CHI ####[facility] [id number] [place], [address] Progress Noteson 05-21-2024 Cushion Maker Hand Authentication Interface Message Text Normal [facility] Cushion Maker Hand Authentication Interface Message Text Normal [facility] Cushion Maker Hand Authentication Interface Message Text Normal [facility] XR ABDOMEN AP 1 VIEWon 05-21 XR ABDOMEN AP 1 VIEW Normal [facility] XR CHEST AP OR PA 1 VIEWon 0 05-21-2024 XR CHEST AP OR PA 1 VIEW Normal [facility] XR CHEST AP OR PA 1 VIEW Normal [facility] XR CHEST AP OR PA 1 VIEW Normal [facility] XR Chest Single viewon 05-21 EXAMINATION: XR CHES T AP OR PA 1 VIEW 05/21/2024 05:57 AM CLINICAL HISTORY: Chest tube assessment; Endotracheal tube assessment ASSOCIATED DIAGNOSIS: Chest tube assessment Endotracheal tube assessment ORDERING PROVIDER: NEYDA BOBBY [employer] NOTE: COMPARISON: XR CHEST AP OR PA 1 VIEW 05/20/2024, 5:05 PM FINDINGS: Lines, tubes, and devices: An endotracheal tube is in place with distal tip projecting approximately 4.3 cm above the level of the vivien. Unchanged positions of the right-sided chest tubes overlying the inferior right upper lung zone and peripheral right upper lung zone. Unchanged position of the left IJ approach central venous catheter with tip overlying the SVC. A partially visualized enteric tube is seen coursing down the midline from below with distal aspect overlying the proximal gastric body. The tip is not included in the emjvm-[id number]. Lungs and pleura: Similar loculated right-sided pleural effusion. No sizable left pleural effusion. No visible pneumothorax. Similar patchy bilateral mid and lower lung zone airspace opacities, likely reflecting atelectasis. Cardiomediastinal silhouette: The cardiac silhouette is normal in size. Atherosclerotic calcifications are present in the thoracic aorta. Musculoskeletal: Partially visualized ORIF hardware fixating multiple right-sided rib fractures. Similar right lateral chest wall emphysema. IMPRESSION: Satisfactory endotracheal tube position. Unchanged 2 right-sided chest tube positions. No visible pneumothorax. Similar loculated right sided pleural effusion. Similar patchy bilateral pulmonary opacities, likely atelectasis. MACRO: None RADIOLOGY Jerrell Henry MD - 05/21/2024 EXAMINATION: XR CHEST AP OR PA 1 VIEW 05/21/2024 05:57 AM CLINICAL HISTORY: Chest tube assessment; Endotracheal tube assessment ASSOCIATED DIAGNOSIS: Chest tube assessment Endotracheal tube assessment ORDERING PROVIDER: NEYDA [employer] NOTE: COMPARISON: XR CHEST AP OR PA 1 VIEW 05/20/2024, 5:05 PM FINDINGS: Lines, tubes, and devices: An endotracheal tube is in place with distal tip projecting approximately 4.3 cm above the level of the vivien. Unchanged positions of the right-sided chest tubes overlying the inferior right upper lung zone and peripheral right upper lung zone. Unchanged position of the left IJ approach central venous catheter with tip overlying the SVC. A partially visualized enteric tube is seen coursing down the midline from below with distal aspect overlying the proximal gastric body. The tip is not included in the [id number]. Lungs and pleura: Similar loculated right-sided pleural effusion. No sizable left pleural effusion. No visible pneumothorax. Similar patchy bilateral mid and lower lung zone airspace opacities, likely reflecting atelectasis. Cardiomediastinal silhouette: The cardiac silhouette is normal in size. Atherosclerotic calcifications are present in the thoracic aorta. Musculoskeletal: Partially visualized ORIF hardware fixating multiple right-sided rib fractures. Similar right lateral chest wall emphysema. IMPRESSION: Satisfactory endotracheal tube position. Unchanged 2 right-sided chest tube positions. No visible pneumothorax. Similar loculated right sided pleural effusion. Similar patchy bilateral pulmonary opacities, likely atelectasis. MACRO: None [facility] [employer] XR Chest Single viewOrdered By: Jerrell Henry on 05-21-2024 [employer] Work Phone: Anesthesia Postprocedure Yoselin luationon 05-20-2024 [employer] Authentication Interface Message Text Normal [facility] [employer] [facility] Anesthesia Preprocedure Eval uationon 05-20-2024 [employer] Authentication Interface Message Text Normal [facility] Anesthesia Transfer Of Careo n 05-20-2024 [employer] Authentication Interface Message Text Normal [facility] [employer] [facility] BASIC METABOLIC PANELon 05-02 Anion gap [Moles/Vol] 10 mmol/L Normal 10-20 [facility] Comment on above: Performed By: #### C H8 ####[facility] [id number] [place], [place], Calcium [Mass/Vol] 7.6 mg/dL Low 8.6-10.3 [facility] Comment on above: Performed By: #### C H8 ####S PATHOLOGY EAYSWLCVOR7316 [place], [place], Chloride [Moles/Vol] 101 mmol/L Normal 98-107 [facility] Comment on above: Performed By: #### C H8 ####[facility] [id number] [place], CO2 [Moles/Vol] 27 mmol/L Normal 21-31 [facility] Comment on above: Performed By: #### C H8 ####S PATHOLOGY OFLIEBCMCV0044 [place], [place], Creatinine [Mass/Vol] 0.80 mg/dL Normal 0.70-1.30 [facility] Comment on above: Performed By: #### C H8 ####[facility] PATH[facility] KLAITPCDZE9754 [place], ESTIMATED GFR (CKD-EPI) 88 mL/min/1.73sqm Normal >=60 [facility] Comment on above: Result Comment: 2020 CKD EPI Equation using Creatinine without RaceComment: Estimated glomerular filtration rate (eGFR) is calculated without a race coefficient. Values should be interpreted in the context of the patient's full clinical presentation.Reference:1. Rishi C, Jorge M, Nic SILVA, et al.. A Unifying Approach for GFR Estimation: Recommendations of the NKF-ASN Task Force on Reassessing the Inclusion of Race in Diagnosing Kidney Disease. Citizen [place] Journal of Kidney Diseases 2021;79(2):268-88.e1.2. N Engl J Med 1 Vol. 385 Issue 19 Pages 9780-5214 Performed By: #### C H8 ####[facility] UUUSRPTSWX3415 [place], [place], Glucose [Mass/Vol] 125 mg/dL High 74-109 [facility] Comment on above: Performed By: #### C H8 ####[facility] HAFFYVFIFZ6366 [place], Potassium [Moles/Vol] 4.5 mmol/L Normal 3.5-5.0 [facility] Comment on above: Performed By: #### C H8 ####[facility] PATH[facility] EGVQVUZVQJ7110 [place], Sodium [Moles/Vol] 133 mmol/L Low 136-145 [facility] Comment on above: Performed By: #### C H8 ####[facility] PATHOLOG[facility] [id number] [place] [address], Urea nitrogen [Mass/Vol] 21 mg/dL Normal 7-25 [facility] Comment on above: Performed By: #### Rebeca H8 ####[facility] PATH[facility] [id number] [place] [address], Anion gap [Moles/Vol] 10 mmol/L Normal 10-20 The [facility] Comment on above: Performed By: #### Rebeca K, MG, PHOS, TRIG, CH8 ####[facility] PATHOLOGY GZNZVAMDOL64[address] [place] [address], Calcium [Mass/Vol] 7.9 mg/dL Low 8.6-10.3 [facility] Comment on above: Performed By: #### Rebeca K, MG, PHOS, TRIG, CH8 ####[facility] PATHOLOG[facility] [id number] [place], Chloride [Moles/Vol] 99 mmol/L Normal 98-107 The [facility] Comment on above: Performed By: #### Rebeca K, MG, PHOS, TRIG, CH8 ####[facility] PATHOLOG[facility] [id number] [place], CO2 [Moles/Vol] 26 mmol/L Normal 21-31 [facility] Comment on above: Performed By: #### Rebeac K, MG, PHOS, TRIG, CH8 ####[facility] PATHOLOG[facility] [id number] [place], Creatinine [Mass/Vol] 0.93 mg/dL Normal 0.70-1.30 [facility] Comment on above: Performed By: #### C K, MG, PHOS, TRIG, CH8 ####[facility] OCADOSQVHB4897 [place], ESTIMATED GFR (CKD-EPI) 82 mL/min/1.73sqm Normal >=60 The [facility] Comment on above: Result Comment: 2020 CKD EPI Equation using Creatinine without RaceComment: Estimated glomerular filtration rate (eGFR) is calculated without a race coefficient. Values should be interpreted in the context of the patient's full clinical presentation.Reference:1. Rishi C, Jorge M, Nic SILVA, et al.. A Unifying Approach for GFR Estimation: Recommendations of the NKF-ASN Task Force on Reassessing the Inclusion of Race in Diagnosing Kidney Disease. Citizen [place] Journal of Kidney Diseases 202;79(2):268-88.e1.2. N Engl J Med 2020 Vol. 385 Issue 19 Pages 9724-5878 Performed By: #### C K, MG, PHOS, TRIG, CH8 ####S PATHOLOGY YFNMQBLISR7575 [place], Glucose [Mass/Vol] 126 mg/dL High 74-109 The [facility] Comment on above: Performed By: #### C K, MG, PHOS, TRIG, CH8 ####S PATHOLOGY XBQZIRVUNL2005 [place], Potassium [Moles/Vol] 4.3 mmol/L Normal 3.5-5.0 [facility] Comment on above: Performed By: #### C K, MG, PHOS, TRIG, CH8 ####[facility] FLLOWMRJLT4262 [place], Sodium [Moles/Vol] 131 mmol/L Low 136-145 The [facility] Comment on above: Performed By: #### C K, MG, PHOS, TRIG, CH8 ####[facility] [id number] [place], Urea nitrogen [Mass/Vol] 30 mg/dL High 7-25 [facility] Comment on above: Performed By: #### C K, MG, PHOS, TRIG, CH8 ####[facility] [id number] [facility], [place], BLOOD GAS, ARTERIALon 2023 CR JOSEPH 1.6 mmol/L Normal -2.0-3.0 The [facility] Comment on above: Performed By: #### C R GLU, CR BGA, CR COOX, CR ICA, LACT, CR LYTES ####[facility] PATHOLOG[facility] [id number] [place] [address], CR PCO2 52.6 mm Hg High 35.0-45.0 The [facility] Comment on above: Performed By: #### C R GLU, CR BGA, CR COOX, CR ICA, LACT, CR LYTES ####[facility] PATHOLOG[facility] LYXEVAWEOE[address] [place] [address], CR PHA 7.336 Low 7.350-7.450 The [facility] Comment on above: Performed By: #### C R GLU, CR BGA, CR COOX, CR ICA, LACT, CR LYTES ####[facility] PATHOLOGY [id number] [place] [address], CR PO2 122 mm Hg High 80-100 The [facility] Comment on above: Performed By: #### C R GLU, CR BGA, CR COOX, CR ICA, LACT, CR LYTES ####[facility] PATHOLOGY [id number] [place] [address], HCO3 (Bld) [Moles/Vol] 27 mmol/L Normal 21-28 The [facility] Comment on above: Performed By: #### C R GLU, CR BGA, CR COOX, CR ICA, LACT, CR LYTES ####[facility] PATHOLOG[facility] [id number] [place] [address], Oxygen saturation in Blood 98.7 % Normal 95.0-99.0 The [facility] Comment on above: Performed By: #### C R GLU, CR BGA, CR COOX, CR ICA, LACT, CR LYTES ####[facility] PATHOLOGY [id number] [place] [address], CR JOSEPH 1.7 mmol/L Normal -2.0-3.0 The [facility] Comment on above: Performed By: #### C R COOX, CR LYTES, LACT, CR GLU, CR BGA, CR ICA ####[facility] PATHOLOG[facility] [id number] [place] [address], CR PCO2 60.2 mm Hg High 35.0-45.0 The [facility] Comment on above: Performed By: #### C R COOX, CR LYTES, LACT, CR GLU, CR BGA, CR ICA ####[facility] PATHOLOG[facility] [id number] [place] [address], CR PHA 7.293 Low 7.350-7.450 The [facility] Comment on above: Performed By: #### C R COOX, CR LYTES, LACT, CR GLU, CR BGA, CR ICA ####[facility] PATH[facility] [id number] [place] [address], CR PO2 128 mm Hg High 80-100 The [facility] Comment on above: Performed By: #### C R COOX, CR LYTES, LACT, CR GLU, CR BGA, CR ICA ####[facility] PATH[facility] [id number] [place] [address], HCO3 (Bld) [Moles/Vol] 28 mmol/L Normal 21-28 The [facility] Comment on above: Performed By: #### C R COOX, CR LYTES, LACT, CR GLU, CR BGA, CR ICA ####[facility] PATH[facility] [id number] [place] [address], Oxygen saturation in Blood 98.6 % Normal 95.0-99.0 The [facility] Comment on above: Performed By: #### C R COOX, CR LYTES, LACT, CR GLU, CR BGA, CR ICA ####[facility] PATH[facility] [id number] [place] [address], CR JOSEPH 2.5 mmol/L Normal -2.0-3.0 The [facility] Comment on above: Performed By: #### L ACT, CR BGA ####[facility] PATH[facility] [id number] [place] [address], CR PCO2 42.2 mm Hg Normal 35.0-45.0 The [facility] Comment on above: Performed By: #### L ACT, CR BGA ####[facility] PATH[facility] [id number] [place], [place], CR PHA 7.417 Normal 7.350-7.450 The [facility] Comment on above: Performed By: #### L ACT, CR BGA ####[facility] PATH[facility] [id number] [place], [place], CR PO2 88 mm Hg Normal 80-100 [facility] Comment on above: Performed By: #### L ACT, CR BGA ####[facility] PATH[facility] [id number] [place], [place], FIO2 (CATEGORY) 60% Normal [facility] Comment on above: Performed By: #### L ACT, CR BGA ####[facility] PATH[facility] [id number] [place], HCO3 (Bld) [Moles/Vol] 27 mmol/L Normal 21-28 [facility] Comment on above: Performed By: #### L ACT, CR BGA ####[facility] PATHOLOG[facility] LYNSSTPBQA35[address] [place] [address], MODE Vent Normal [facility] Comment on above: Performed By: #### L ACT, CR BGA ####[facility] PATH[facility] [id number] [place] [address], Oxygen saturation in Blood 97.2 % Normal 95.0-99.0 The [facility] Comment on above: Performed By: #### L ACT, CR BGA ####[facility] [id number] [place] [address], Blood Attestationon 05-20-20 24 [employer] Authentication Interface Message Text Normal The [facility] CALCIUM, IONIZEDon 4 CR ICA 1.14 mmol/L Low 1.15-1.33 The [facility] Comment on above: Result Comment: This test was developed, and its performance characteristics determined by the Department of Pathology of [facility]. It has not been cleared or approved by the FDA. This test is used for clinical purposes only. Performed By: #### C R GLU, CR BGA, CR COOX, CR ICA, LACT, CR LYTES ####[facility] [id number] [place] [address], CR ICA 1.19 mmol/L Normal 1.15-1.33 [facility] Comment on above: Result Comment: This test was developed, and its performance characteristics determined by the Department of Pathology of [facility]. It has not been cleared or approved by the FDA. This test is used for clinical purposes only. Performed By: #### C R COOX, CR LYTES, LACT, CR GLU, CR BGA, CR ICA ####[facility] VOGNHRIHIU39[address] [place] [address], CO-OXIMETERon 05-20-2024 CARBOXYHEMOGLOBIN 2.0 % High 0.5-1.5 [facility] Comment on above: Performed By: #### C R GLU, CR BGA, CR COOX, CR ICA, LACT, CR LYTES ####[facility] PATH[facility] [id number] [place] [address], CR HBMET 1.0 % Normal 0.0-1.5 [facility] Comment on above: Performed By: #### C R GLU, CR BGA, CR COOX, CR ICA, LACT, CR LYTES ####[facility] PATH[facility] [id number] [place] [address], Hematocrit (Bld) [Volume fraction] 27.8 % Low 42.0-54.0 [facility] Comment on above: Performed By: #### C R GLU, CR BGA, CR COOX, CR ICA, LACT, CR LYTES ####[facility] [id number] [place] [address], Hemoglobin (Bld) [Mass/Vol] 8.9 g/dL Low 13.5-17.5 [facility] Comment on above: Performed By: #### C R GLU, CR BGA, CR COOX, CR ICA, LACT, CR LYTES ####[facility] [id number] [place] [address], OXYHEMOGLOBIN 95.7 % Normal 94.0-98.0 [facility] Comment on above: Performed By: #### C R GLU, CR BGA, CR COOX, CR ICA, LACT, CR LYTES ####[facility] [id number] [place] [address], CARBOXYHEMOGLOBIN 1.8 % High 0.5-1.5 [facility] Comment on above: Performed By: #### C R COOX, CR LYTES, LACT, CR GLU, CR BGA, CR ICA ####[facility] [id number] [place] [address], CR HBMET 1.1 % Normal 0.0-1.5 [facility] Comment on above: Performed By: #### C R COOX, CR LYTES, LACT, CR GLU, CR BGA, CR ICA ####[facility] PATH[facility] [id number] [place] [address], Hematocrit (Bld) [Volume fraction] 25.0 % Low 42.0-54.0 [facility] Comment on above: Performed By: #### C R COOX, CR LYTES, LACT, CR GLU, CR BGA, CR ICA ####[facility] [id number] [place] [address], Hemoglobin (Bld) [Mass/Vol] 8.0 g/dL Low 13.5-17.5 [facility] Comment on above: Performed By: #### C R COOX, CR LYTES, LACT, CR GLU, CR BGA, CR ICA ####[facility] PATH[facility] [id number] [place] [address], OXYHEMOGLOBIN 95.7 % Normal 94.0-98.0 [facility] Comment on above: Performed By: #### C R COOX, CR LYTES, LACT, CR GLU, CR BGA, CR ICA ####[facility] [id number] [place] [address], COMPLETE BLOOD COUNTon 05-20 Erythrocyte distribution width (RBC) [Ratio] 15.6 % High 11.5-14.5 [facility] Comment on above: Performed By: #### C BC ####[facility] OTRLWCQRCM4964[address] [place] [address], Hematocrit (Bld) [Volume fraction] 30.5 % Low 41.0-53.0 [facility] Comment on above: Performed By: #### C BC ####[facility] [id number] [place], Hemoglobin (Bld) [Mass/Vol] 10.5 g/dL Low 13.9-16.3 [facility] Comment on above: Performed By: #### C BC ####[facility] [id number] [place], MCH (RBC) [Entitic mass] 31.5 pg Normal 26.0-34.0 [facility] Comment on above: Performed By: #### C BC ####[facility] [id number] [place] [address], MCHC (RBC) [Mass/Vol] 34.4 g/dL Normal 32.0-35.9 [facility] Comment on above: Performed By: #### C BC ####[facility] [id number] [place] [address], MCV (RBC) [Entitic vol] 92 fL Normal 80-100 [facility] Comment on above: Performed By: #### C BC ####[facility] [id number] [place], Platelet mean volume (Bld) [Entitic vol] 6.4 fL Low 7.5-11.2 [facility] Comment on above: Performed By: #### C BC ####[facility] [id number] [place], Platelets (Bld) [#/Vol] 183 10*3/uL Normal 150-400 [facility] Comment on above: Performed By: #### C BC ####[facility] EANRMOVWGG7420 [place], RBC (Bld) [#/Vol] 3.33 10*6/uL Low 4.50-5.90 [facility] Comment on above: Performed By: #### C BC ####[facility] [id number] [place], WBC (Bld) [#/Vol] 8.5 10*3/uL Normal 4.5-11.5 [facility] Comment on above: Performed By: #### C BC ####[facility] [id number] [place] [address], Erythrocyte distribution width (RBC) [Ratio] 14.7 % High 11.5-14.5 [facility] Comment on above: Performed By: #### C BC ####[facility] [id number] [place] [address], Hematocrit (Bld) [Volume fraction] 23.7 % Low 41.0-53.0 [facility] Comment on above: Performed By: #### C BC ####[facility] YZAMGLUBKY685[address] [place] [address], Hemoglobin (Bld) [Mass/Vol] 7.9 g/dL Low 13.9-16.3 [facility] Comment on above: Performed By: #### C BC ####[facility] ESWEUWMPSC216[address] [place] [address], MCH (RBC) [Entitic mass] 32.6 pg Normal 26.0-34.0 [facility] Comment on above: Performed By: #### C BC ####[facility] [id number] [place] [address], MCHC (RBC) [Mass/Vol] 33.5 g/dL Normal 32.0-35.9 [facility] Comment on above: Performed By: #### C BC ####[facility] [id number] [place] [address], MCV (RBC) [Entitic vol] 97 fL Normal 80-100 [facility] Comment on above: Performed By: #### C BC ####[facility] [id number] [place] [address], Platelet mean volume (Bld) [Entitic vol] 6.5 fL Low 7.5-11.2 [facility] Comment on above: Performed By: #### C BC ####[facility] [id number] [place] [address], Platelets (Bld) [#/Vol] 177 10*3/uL Normal 150-400 [facility] Comment on above: Performed By: #### C BC ####[facility] [id number] [place], RBC (Bld) [#/Vol] 2.43 10*6/uL Low 4.50-5.90 [facility] Comment on above: Performed By: #### C BC ####[facility] [id number] [place], WBC (Bld) [#/Vol] 6.9 10*3/uL Normal 4.5-11.5 [facility] Comment on above: Performed By: #### C BC ####[facility] [id number] [place] [address], Erythrocyte distribution width (RBC) [Ratio] 13.6 % Normal 11.5-14.5 [facility] Comment on above: Performed By: #### C BC ####[facility] IPCBPGDPZY95[address] [place] [address], Hematocrit (Bld) [Volume fraction] 18.3 % Critically low 41.0-53.0 [facility] Comment on above: Performed By: #### C BC ####[facility] [id number] [place], Hemoglobin (Bld) [Mass/Vol] 6.1 g/dL Critically low 13.9-16.3 [facility] Comment on above: Performed By: #### C BC ####[facility] [id number] [place], MCH (RBC) [Entitic mass] 33.0 pg Normal 26.0-34.0 [facility] Comment on above: Performed By: #### C BC ####[facility] [id number] [place], MCHC (RBC) [Mass/Vol] 33.3 g/dL Normal 32.0-35.9 [facility] Comment on above: Performed By: #### C BC ####[facility] [id number] [place], MCV (RBC) [Entitic vol] 99 fL Normal 80-100 [facility] Comment on above: Performed By: #### C BC ####[facility] [id number] [place], Platelet mean volume (Bld) [Entitic vol] 6.9 fL Low 7.5-11.2 [facility] Comment on above: Performed By: #### C BC ####[facility] THHIRGMDVL[address] [place] [address], Platelets (Bld) [#/Vol] 170 10*3/uL Normal 150-400 [facility] Comment on above: Performed By: #### C BC ####[facility] [id number] [place] [address], RBC (Bld) [#/Vol] 1.85 10*6/uL Low 4.50-5.90 [facility] Comment on above: Performed By: #### C BC ####[facility] [id number] [place] [address], WBC (Bld) [#/Vol] 5.6 10*3/uL Normal 4.5-11.5 [facility] Comment on above: Performed By: #### C BC ####[facility] PATHOLOGY [id number] [place] [address], CREATINE KINASEon 05-20-2024 CK [Catalytic activity/Vol] 318 U/L High 30-233 [facility] Comment on above: Performed By: #### C K, MG, PHOS, TRIG, CH8 ####[facility] PATHOLOGY [id number] [place], [place], ELECTROLYTESon 05-20-2024 Chloride [Moles/Vol] 98 mmol/L Normal 98-107 [facility] Comment on above: Performed By: #### C R GLU, CR BGA, CR COOX, CR ICA, LACT, CR LYTES ####[facility] PATHOLOGY JNMEONEVVW8063 [place], [place], Potassium [Moles/Vol] 4.2 mmol/L Normal 3.5-5.0 The [facility] Comment on above: Performed By: #### C R GLU, CR BGA, CR COOX, CR ICA, LACT, CR LYTES ####[facility] PATHOLOGY RQHYWTCTMO[address] [place] [address], Sodium [Moles/Vol] 131 mmol/L Low 136-146 The [facility] Comment on above: Performed By: #### C R GLU, CR BGA, CR COOX, CR ICA, LACT, CR LYTES ####[facility] PATHOLOGY NRPTJVLHNR[address] [place] [address], Chloride [Moles/Vol] 96 mmol/L Low 98-107 [facility] Comment on above: Performed By: #### C R COOX, CR LYTES, LACT, CR GLU, CR BGA, CR ICA ####[facility] PATHOLOGY [id number] [place] [address], Potassium [Moles/Vol] 4.2 mmol/L Normal 3.5-5.0 The [facility] Comment on above: Performed By: #### C R COOX, CR LYTES, LACT, CR GLU, CR BGA, CR ICA ####[facility] PATHOLOGY EZRYTPJLWX[address] [place] [address], Sodium [Moles/Vol] 132 mmol/L Low 136-146 The [facility] Comment on above: Performed By: #### C R COOX, CR LYTES, LACT, CR GLU, CR BGA, CR ICA ####[facility] PATHOLOGY LYRGTVKEDN[address] [place] [address], FFPon 05-20-2024 BB ORDER ITEM Product status info to follow Normal The [facility] Comment on above: Performed By: #### F FO ####[facility] PATHOLOGY WRQVKORTYN[address] [place] [address], GLUCOSE, WHOLE BLOODon 05-20 CR GLU 137 mg/dL High 70-105 The [facility] Comment on above: Performed By: #### C R GLU, CR BGA, CR COOX, CR ICA, LACT, CR LYTES ####[facility] PATHOLOGY NUXKIRSPJV[address] [place] [address], CR GLU 134 mg/dL High 70-105 [facility] Comment on above: Performed By: #### C R COOX, CR LYTES, LACT, CR GLU, CR BGA, CR ICA ####S PATHOLOGY EMCXQUEFEW4642 [place], [place], LACTIC ACIDon 05-20-2024 CR LACT 1.1 mmol/L Normal 0.5-1.6 The [facility] Comment on above: Performed By: #### C R GLU, CR BGA, CR COOX, CR ICA, LACT, CR LYTES ####S PATHOLOGY [id number] [place] [address], CR LACT 0.9 mmol/L Normal 0.5-1.6 The [facility] Comment on above: Performed By: #### C R COOX, CR LYTES, LACT, CR GLU, CR BGA, CR ICA ####[facility] PATHOLOGY ZKTOANNJGP10[address] [place] [address], CR LACT 0.8 mmol/L Normal 0.5-1.6 The [facility] Comment on above: Performed By: #### L ACT, CR BGA ####[facility] PATH[facility]Y MYONBPJJQN9323 [place], MAGNESIUMon 05-20-2024 Magnesium [Mass/Vol] 2.0 mg/dL Normal 1.9-2.7 The [facility] Comment on above: Performed By: #### C K, MG, PHOS, TRIG, CH8 ####[facility] PATHOLOG[facility] [id number] [place], [place], OP Noteon 05-20-2024 Cushion Maker Hand Authentication Interface Message Text Normal [facility] OR Nursingon 05-20-2024 Cushion Maker Hand Authentication Interface Message Text Report called to 5w RN 1424 Normal [facility] PARTIAL THROMBOPLASTIN TIMEo n 05-20-2024 aPTT Coag (Bld) [Time] 28 s Normal 25-37 [facility] Comment on above: Performed By: #### A PTT, PT ####S PATHOLOGY ZIFFCUARSU[address] [place] [address], PHOSPHORUSon 05-20-2024 Phosphate [Mass/Vol] 2.2 mg/dL Low 2.5-5.0 [facility] Comment on above: Performed By: #### C K, MG, PHOS, TRIG, CH8 ####[facility] MCLTQDKEIR7014 [place], PLASMA STATUSon 05-20-2024 BLOOD PRODUCT CODE [id number] Normal [facility] Comment on above: Performed By: #### F FU ####S PATHOLOGY [id number] [place], BLOOD PRODUCT CODE [id number] Normal [facility] Comment on above: Performed By: #### F FU ####S PATHOLOGY RSWKTPDELP9013 [place], BLOOD PRODUCT CODE [id number] Normal [facility] Comment on above: Performed By: #### F FU ####S PATHOLOGY PXEROUOPGG7586 [place], BLOOD PRODUCT DESCRIPTION FFP Normal [facility] Comment on above: Performed By: #### F FU ####S PATHOLOGY UDVJGNDKPW7839 [place], BLOOD PRODUCT STATUS Returned to Bld Bnk Normal The [facility] Comment on above: Performed By: #### F FU ####S PATHOLOGY UVFTPQKSPG5700 [place], BLOOD PRODUCT STATUS Released to avail Normal [facility] Comment on above: Performed By: #### F FU ####S PATHOLOGY ZGRBVGXXAZ2506 [place], BLOOD PRODUCT UNIT INFO [id number] Normal [facility] Comment on above: Performed By: #### F FU ####S PATHOLOGY NELMNQFPKP1605 [place], BLOOD PRODUCT UNIT INFO [id number] Normal [facility] Comment on above: Performed By: #### F FU ####S PATHOLOGY TTYGZXTEKM0177 [place], BLOOD PRODUCT UNIT INFO [id number] Normal [facility] Comment on above: Performed By: #### F FU ####S PATHOLOGY PVSRKGXXFB8690 [place], BLOOD PRODUCT UNIT INFO [id number] Normal [facility] Comment on above: Performed By: #### F FU ####S PATHOLOGY BVPHTCQLUM9176 [place], BLOOD PRODUCT UNIT TYPE 8400 Normal [facility] Comment on above: Result Comment: AB P os Performed By: #### F FU ####[facility] PATHOLOGY OPHIQPTSLN[address] [place] [address], BLOOD PRODUCT UNIT TYPE 6200 Normal [facility] Comment on above: Result Comment: A Po s Performed By: #### F FU ####[facility] PATHOLOGY YOBBYGWKQQ[address] [place] [address], PROTHROMBIN TIME AND INRon 0 05-20-2024 INR Coag (PPP) [Relative time] 0.95 {INR} Normal 0.90-1.10 [facility] Comment on above: Performed By: #### A PTT, PT ####[facility] PATH[facility] [id number] [place], [place], PT Coag (PPP) [Time] 10.6 s Normal 9.7-12.9 The [facility] Comment on above: Performed By: #### A PTT, PT ####[facility] PATHOLOGY RTWGOZZSPN[address]174[address] [place] [address], Procedureson 05-20-2024 Cushion Maker Hand Authentication Interface Message Text Invalid Interpretation Code [facility] Progress Noteson 05-20-2024 Cushion Maker Hand Authentication Interface Message Text Normal [facility] Cushion Maker Hand Authentication Interface Message Text Normal [facility] RED BLOOD CELL COMPONENTon 0 05-20-2024 BB ORDER ITEM Product status info to follow Normal The [facility] Comment on above: Performed By: #### R ELLIE ####S PATHOLOGY [id number] [place] [address], BB ORDER ITEM Product status info to follow Normal The [facility] Comment on above: Performed By: #### R ELLIE ####S PATHOLOGY ECSPMATXMU37[address] [place] [address], RED BLOOD CELL UNIT STATUSon 05-20-2024 BLOOD PRODUCT CODE [id number] Normal The [facility] Comment on above: Performed By: #### R BU ####[facility] ZEQTVICEGO0282 [place], BLOOD PRODUCT CODE [id number] Normal [facility] Comment on above: Performed By: #### R BU ####[facility] AGPBZSEVJJ9793 [place], BLOOD PRODUCT DESCRIPTION Red Blood Cells Normal [facility] Comment on above: Performed By: #### R ADRIA ####[facility] [id number] [place], BLOOD PRODUCT STATUS Transfused Normal The [facility] Comment on above: Performed By: #### R ADRIA ####[facility] TQBTXTHIAS8963 [place], BLOOD PRODUCT STATUS Returned to Bld Bnk Normal The [facility] Comment on above: Performed By: #### R ADRIA ####[facility] XWATIAJHFG9995 [place], BLOOD PRODUCT UNIT INFO [id number] Normal [facility] Comment on above: Performed By: #### R BU ####[facility] QKZERHTDIP9606 [place], BLOOD PRODUCT UNIT INFO [id number] Normal [facility] Comment on above: Performed By: #### R ADRIA ####[facility] VSCQSYGNKD5842 [place], BLOOD PRODUCT UNIT INFO [id number] Normal [facility] Comment on above: Performed By: #### R BU ####[facility] MCAIEDIVBM7569 [place], BLOOD PRODUCT UNIT INFO [id number] Normal [facility] Comment on above: Performed By: #### R BU ####[facility] OUQJTQKFLI5721 [place], BLOOD PRODUCT UNIT TYPE 6200 Normal The [facility] Comment on above: Result Comment: A Po s Performed By: #### R BU ####[facility] WLREJWMDBS3812 [place], CROSSMATCH INTERPRETATION Compatible (E) Normal [facility] Comment on above: Performed By: #### R BU ####[facility] LEYFOHHMCZ6083 [place], BLOOD PRODUCT CODE [id number] Normal [facility] Comment on above: Performed By: #### R BU ####[facility] KMHYBHPMIV1919 [place], BLOOD PRODUCT DESCRIPTION Red Blood Cells Normal The [facility] Comment on above: Performed By: #### R BU ####[facility] BMYDKJLOKQ0808 [place], BLOOD PRODUCT STATUS Transfused Normal The [facility] Comment on above: Performed By: #### R BU ####S PATHOLOGY [id number] [place], BLOOD PRODUCT UNIT INFO [id number] Normal The [facility] Comment on above: Performed By: #### R BU ####S PATHOLOGY WWCCYZZIPO5613 [place], BLOOD PRODUCT UNIT TYPE 6200 Normal The [facility] Comment on above: Result Comment: A Po s Performed By: #### R BU ####[facility] VDZEGQQUYT6116 [place], CROSSMATCH INTERPRETATION Compatible (E) Normal The [facility] Comment on above: Performed By: #### R BU ####[facility] XEYKFOVPAS4241 [place], RESPIRATORY CULTURE, MISCon 05-20-2024 ANGÉLICA Normal The [facility] Comment on above: Order Comment: THIS IS A PRELIMINARY REPORT. Final results will follow. Results of the preliminary report may be modified as additional information becomes available. Performed By: #### C RESP ####[facility] Pdfkxyuqm7[address] [place], [place] RESPIRATORY CULTURE, MISC Normal The [facility] Comment on above: Order Comment: THIS IS A PRELIMINARY REPORT. Final results will follow. Results of the preliminary report may be modified as additional information becomes available. Performed By: #### C RESP ####[facility] W[address]wh[address]hq1113 [place], [place] Student Noteon 05-20-2024 Cushion Maker Hand Authentication Interface Message Text Normal [facility] TRIGLYCERIDESon 05-20-2024 Triglyceride [Mass/Vol] 84 mg/dL Normal <150 [facility] Comment on above: Result Comment: Norm al: < 150 mg/dLBorderline High: 150-199 mg/dLHigh: 200-499 mg/dLVery High: > = 500 mg/dL Performed By: #### C K, MG, PHOS, TRIG, CH8 ####S PATHOLOGY XODWITRKYU8001 [place], [place], TYPE AND SCREENon 05-20-2024 ABO and Rh group Nom (Bld) Blood group A Rh(D) positive Normal [facility] Comment on above: Performed By: #### T S ####[facility] EFTDVISVXY1404 [place], ABSC INT Negative Normal [facility] Comment on above: Performed By: #### T S ####[facility] JGTVWLPSWP2689 [place], XR CHEST AP OR PA 1 VIEWon 0 05-20-2024 XR CHEST AP OR PA 1 VIEW Normal [facility] XR CHEST AP OR PA 1 VIEW Normal [facility] X[facility] Chest Single viewon 05-20 EXAMINATION: XR CHES T AP OR PA 1 VIEW 05/20/2024 04:55 PM CLINICAL HISTORY: Chest surgery, postoperative; Chest tube assessment ASSOCIATED DIAGNOSIS: Chest surgery, postoperative Chest tube assessment ORDERING PROVIDER: KATIE MILLS [employer] NOTE: COMPARISON: XR CHEST AP OR PA 1 VIEW 05/19/2024, 10:24 PM FINDINGS: Lines, tubes, and devices: An endotracheal tube is present 4.8 cm above the vivien. An orogastric tube is present which traverses the diaphragm with tip not included. A left sided central line is present with tip overlying the SVC, unchanged. The previously seen right-sided pigtail drainage catheter has been removed. Two large-caliber right-sided chest tubes are now present overlying the right upper lung field a thin caliber line or wire is seen over the neck and chest which may be external to the patient. Lungs and pleura: Loculated right-sided pleural fluid appears improved from the prior exam. Patchy bilateral pulmonary opacities are again present, likely atelectasis. Cardiomediastinal silhouette: Normal cardiomediastinal silhouette. Musculoskeletal: Interval fixation of some of the patient's right-sided rib fractures. New chest wall emphysema on the right. IMPRESSION: Interval rib fixation and placement of 2 large caliber right-sided chest tubes. Loculated right-sided pleural fluid appears improved from the prior exam. Patchy bilateral pulmonary opacities are again present, likely atelectasis. RADIOLOGY Nik Nguyen MD - 05/20/2024 EXAMINATION: XR CHEST AP OR PA 1 VIEW 05/20/2024 04:55 PM CLINICAL HISTORY: Chest surgery, postoperative; Chest tube assessment ASSOCIATED DIAGNOSIS: Chest surgery, postoperative Chest tube assessment ORDERING PROVIDER: KATIE MILLS [employer] NOTE: COMPARISON: XR CHEST AP OR PA 1 VIEW 05/19/2024, 10:24 PM FINDINGS: Lines, tubes, and devices: An endotracheal tube is present 4.8 cm above the vivien. An orogastric tube is present which traverses the diaphragm with tip not included. A left sided central line is present with tip overlying the SVC, unchanged. The previously seen right-sided pigtail drainage catheter has been removed. Two large-caliber right-sided chest tubes are now present overlying the right upper lung field a thin caliber line or wire is seen over the neck and chest which may be external to the patient. Lungs and pleura: Loculated right-sided pleural fluid appears improved from the prior exam. Patchy bilateral pulmonary opacities are again present, likely atelectasis. Cardiomediastinal silhouette: Normal cardiomediastinal silhouette. Musculoskeletal: Interval fixation of some of the patient's right-sided rib fractures. New chest wall emphysema on the right. IMPRESSION: Interval rib fixation and placement of 2 large caliber right-sided chest tubes. Loculated right-sided pleural fluid appears improved from the prior exam. Patchy bilateral pulmonary opacities are again present, likely atelectasis. [facility] Radiology Study observation (narrative) [facility] XR Chest Single viewOrdered By: Nik Nguyen on 05-20-2024 [facility] Work Phone: BASIC METABOLIC PANELon 05-02 Anion gap [Moles/Vol] 15 mmol/L Normal 10-20 [facility] Comment on above: Performed By: #### C H8 ####S PATHOLOGY IRYZTPYXHM8416 [place], Calcium [Mass/Vol] 8.7 mg/dL Normal 8.6-10.3 [facility] Comment on above: Performed By: #### C H8 ####[facility] OEYVTXJQKK7275 [place], Chloride [Moles/Vol] 95 mmol/L Low 98-107 [facility] Comment on above: Performed By: #### C H8 ####[facility] ZHCYLCAJKA5579 [place], CO2 [Moles/Vol] 23 mmol/L Normal 21-31 [facility] Comment on above: Performed By: #### C H8 ####[facility] OAYNXSVAJN8174 [place], Creatinine [Mass/Vol] 1.23 mg/dL Normal 0.70-1.30 [facility] Comment on above: Performed By: #### C H8 ####S PATHOLOGY DPMQIMEFBX6199 [place], ESTIMATED GFR (CKD-EPI) 59 mL/min/1.73sqm Low >=60 [facility] Comment on above: Result Comment: 2020 CKD EPI Equation using Creatinine without RaceComment: Estimated glomerular filtration rate (eGFR) is calculated without a race coefficient. Values should be interpreted in the context of the patient's full clinical presentation.Reference:1. Rishi C, Jorge M, Nic SILVA, et al.. A Unifying Approach for GFR Estimation: Recommendations of the NKF-ASN Task Force on Reassessing the Inclusion of Race in Diagnosing Kidney Disease. Citizen Of [place] Journal of Kidney Diseases 202;79(2):268-88.e1.2. N Engl J Med 1 Vol. 385 Issue 19 Pages 7159-9198 Performed By: #### Rebeca H8 ####S PATHOLOGY ASMIQVIKMC4866 [place], Glucose [Mass/Vol] 178 mg/dL High 74-109 [facility] Comment on above: Performed By: #### Rebeca H8 ####S PATHOLOGY MEVVCUPIWU3318 [place], Potassium [Moles/Vol] 5.6 mmol/L High 3.5-5.0 The [facility] Comment on above: Result Comment: Hemo lysis present Performed By: #### Rebeca H8 ####S PATHOLOGY MJUUHQYYGU6006 [place], Sodium [Moles/Vol] 127 mmol/L Low 136-145 The [facility] Comment on above: Performed By: #### Rebeca Mckeon8 ####S PATHOLOGY ANKGIJRXDJ8561 [place], Urea nitrogen [Mass/Vol] 40 mg/dL High 7-25 The [facility] Comment on above: Performed By: #### Rebeca Rodriges ####[facility] PATHOLOG[facility] HFPEDGAOKX7186 [place], Anion gap [Moles/Vol] 12 mmol/L Normal 10-20 The [facility] Comment on above: Performed By: #### CHI Cronin CH8 ####[facility] ZCISAGXJLE4716 [place], Calcium [Mass/Vol] 8.5 mg/dL Low 8.6-10.3 The [facility] Comment on above: Performed By: #### CHI Cronni CH8 ####[facility] KCNXLVYCHY9959 [place], Chloride [Moles/Vol] 98 mmol/L Normal 98-107 The [facility] Comment on above: Performed By: #### CHI Cronin CH8 ####[facility] FIYNQFEHKO0566 [place], CO2 [Moles/Vol] 27 mmol/L Normal 21-31 The [facility] Comment on above: Performed By: #### CHI Cronin CH8 ####[facility] XXIOQOHKIA9585 [place], Creatinine [Mass/Vol] 1.67 mg/dL High 0.70-1.30 [facility] Comment on above: Performed By: #### CHI Cronin CH8 ####[facility] NPSVVMMZYB0034 [place], ESTIMATED GFR (CKD-EPI) 41 mL/min/1.73sqm Low >=60 [facility] Comment on above: Result Comment: 2020 CKD EPI Equation using Creatinine without RaceComment: Estimated glomerular filtration rate (eGFR) is calculated without a race coefficient. Values should be interpreted in the context of the patient's full clinical presentation.Reference:1. Rishi C, Jorge M, Nic SILVA, et al.. A Unifying Approach for GFR Estimation: Recommendations of the NKF-ASN Task Force on Reassessing the Inclusion of Race in Diagnosing Kidney Disease. Citizen [place] Journal of Kidney Diseases 2021;79(2):268-88.e1.2. N Engl J Med 2020 Vol. 385 Issue 19 Pages [phone] Performed By: #### CHI Cronin CH8 ####[facility] WHTJGBMFDZ9451 [place], Glucose [Mass/Vol] 117 mg/dL High 74-109 [facility] Comment on above: Performed By: #### CHI Cronin CH8 ####[facility] PATH[facility] WDZRCZUCCG6208 [place], Potassium [Moles/Vol] 5.6 mmol/L High 3.5-5.0 [facility] Comment on above: Performed By: #### CHI Cronin CH8 ####[facility] PATH[facility] PFQJQIYIJV1417 [place], Sodium [Moles/Vol] 131 mmol/L Low 136-145 [facility] Comment on above: Performed By: #### CHI Cronin CH8 ####[facility] PATH[facility] MSWXFPEBDU9141 [place], Urea nitrogen [Mass/Vol] 47 mg/dL High 7-25 The [facility] Comment on above: Performed By: #### M CHI Meade, CH8 ####S PATHOLOGY JQLRTOYXBV4027 [place], BLOOD GAS, ARTERIALon 2023 CR JOSEPH 1.2 mmol/L Normal -2.0-3.0 The [facility] Comment on above: Performed By: #### C R BGA ####[facility] WKVGFBESEB7719 [place], CR PCO2 43.3 mm Hg Normal 35.0-45.0 The [facility] Comment on above: Performed By: #### C R BGA ####[facility] PATHOLOGY SPKAVZEEMJ[address] [place] [address], CR PHA 7.391 Normal 7.350-7.450 The [facility] Comment on above: Performed By: #### C R BGA ####[facility] PATHOLOGY HKKFHOJRVG8390[address] [place] [address], CR PO2 94 mm Hg Normal 80-100 The [facility] Comment on above: Performed By: #### C R BGA ####[facility] PATHOLOGY LTORUBKYIC6606 [place], FIO2 (CATEGORY) 60% Normal The [facility] Comment on above: Performed By: #### C R BGA ####[facility] PATHOLOG[facility] JIMTDPCFKY7775 [place], HCO3 (Bld) [Moles/Vol] 26 mmol/L Normal 21-28 The [facility] Comment on above: Performed By: #### C R BGA ####S PATHOLOGY HTTJIKNCXJ4322 [place], MODE Vent Normal The [facility] Comment on above: Result Comment: 450 x 24 +5 Performed By: #### C R BGA ####S PATHOLOGY ORJXHEHXAI8417 [place], Oxygen saturation in Blood 97.3 % Normal 95.0-99.0 The [facility] Comment on above: Performed By: #### C R BGA ####[facility] LSZQOPTIBA8018[address] [place] [address], CR JOSEPH 0.0 mmol/L Normal -2.0-3.0 [facility] Comment on above: Performed By: #### C R BGA ####[facility] PATHOLOG[facility] UQNFXTEETH0569 [place], CR PCO2 61.9 mm Hg High 35.0-45.0 [facility] Comment on above: Performed By: #### C R BGA ####[facility] PATHOLOGY XAOXLFMWKM05[address] [place] [address], CR PHA 7.261 Low 7.350-7.450 [facility] Comment on above: Performed By: #### C R BGA ####[facility] PATHOLOGY PMMFQQONYL424[address] [place] [address], CR PO2 100 mm Hg Normal 80-100 The [facility] Comment on above: Performed By: #### C R BGA ####[facility] PATHOLOGY IUTVBHNKSB18[address] [place] [address], FIO2 (CATEGORY) 50% Normal The [facility] Comment on above: Result Comment: 50L Performed By: #### C R BGA ####[facility] [id number] [place] [address], HCO3 (Bld) [Moles/Vol] 27 mmol/L Normal 21-28 The [facility] Comment on above: Performed By: #### C R BGA ####[facility] PATHOLOGY [id number] [place] [address], MODE Nasal Canula Normal The [facility] Comment on above: Performed By: #### C R BGA ####[facility] PATHOLOGY [id number] [place], [place], Oxygen saturation in Blood 96.4 % Normal 95.0-99.0 The [facility] Comment on above: Performed By: #### C R BGA ####[facility] PATHOLOGY [id number] [place] [address], COMPLETE BLOOD COUNTon 05-19 Erythrocyte distribution width (RBC) [Ratio] 13.8 % Normal 11.5-14.5 The [facility] Comment on above: Performed By: #### C BC ####[facility] PATHOLOGY [id number] [place], [place], Hematocrit (Bld) [Volume fraction] 23.1 % Low 41.0-53.0 [facility] Comment on above: Performed By: #### C BC ####[facility] PATHOLOGY [id number] [place], [place], Hemoglobin (Bld) [Mass/Vol] 7.8 g/dL Low 13.9-16.3 The [facility] Comment on above: Performed By: #### C BC ####[facility] PATHOLOGY [id number] [place], [place], MCH (RBC) [Entitic mass] 33.4 pg Normal 26.0-34.0 [facility] Comment on above: Performed By: #### C BC ####[facility] PATHOLOGY [id number] [place], MCHC (RBC) [Mass/Vol] 33.6 g/dL Normal 32.0-35.9 The [facility] Comment on above: Performed By: #### C BC ####[facility] PATHOLOGY [id number] [place], MCV (RBC) [Entitic vol] 99 fL Normal 80-100 The [facility] Comment on above: Performed By: #### C BC ####[facility] PATHOLOG[facility] [id number] [place], Platelet mean volume (Bld) [Entitic vol] 7.2 fL Low 7.5-11.2 The [facility] Comment on above: Performed By: #### C BC ####[facility] PATHOLOGY [id number] [place], [place], Platelets (Bld) [#/Vol] 161 10*3/uL Normal 150-400 The [facility] Comment on above: Performed By: #### C BC ####[facility] PATHOLOGY [id number] [place], RBC (Bld) [#/Vol] 2.33 10*6/uL Low 4.50-5.90 The [facility] Comment on above: Performed By: #### C BC ####[facility] PATHOLOGY [id number] [place], WBC (Bld) [#/Vol] 8.4 10*3/uL Normal 4.5-11.5 The [facility] Comment on above: Performed By: #### C BC ####[facility] PATH[facility] [id number] [place], Erythrocyte distribution width (RBC) [Ratio] 13.6 % Normal 11.5-14.5 The [facility] Comment on above: Performed By: #### C BC ####[facility] PATH[facility] [id number] [place], Hematocrit (Bld) [Volume fraction] 22.3 % Low 41.0-53.0 [facility] Comment on above: Performed By: #### C BC ####[facility] PATH[facility] [id number] [place], Hemoglobin (Bld) [Mass/Vol] 7.4 g/dL Low 13.9-16.3 The [facility] Comment on above: Performed By: #### C BC ####[facility] PATHOLOG[facility] [id number] [place], MCH (RBC) [Entitic mass] 33.0 pg Normal 26.0-34.0 The [facility] Comment on above: Performed By: #### C BC ####[facility] PATHOLOG[facility] [id number] [place], MCHC (RBC) [Mass/Vol] 33.1 g/dL Normal 32.0-35.9 The [facility] Comment on above: Performed By: #### C BC ####[facility] PATHOLOG[facility] [id number] [place], MCV (RBC) [Entitic vol] 100 fL Normal 80-100 The [facility] Comment on above: Performed By: #### C BC ####[facility] PATHOLOG[facility] [id number] [place], Platelet mean volume (Bld) [Entitic vol] 7.2 fL Low 7.5-11.2 [facility] Comment on above: Performed By: #### C BC ####[facility] PATHOLOG[facility] [id number] [place], Platelets (Bld) [#/Vol] 157 10*3/uL Normal 150-400 [facility] Comment on above: Performed By: #### C BC ####[facility] PATHOLOG[facility] [id number] [place], RBC (Bld) [#/Vol] 2.24 10*6/uL Low 4.50-5.90 [facility] Comment on above: Performed By: #### C BC ####[facility] PATH[facility] [id number] [place], WBC (Bld) [#/Vol] 5.7 10*3/uL Normal 4.5-11.5 [facility] Comment on above: Performed By: #### C BC ####[facility] PATHOLOG[facility] [id number] [place], [place], CT CHEST W/O CONTRASTon 05-02 CT CHEST W/O CONTRAST Normal [facility] CT Chest WO contrastOrdered By: Aramis Lamar on 05-19-2024 CT DLP 226.1 (mGy.cm) [facility] Work Phone: CT Series Topogram,CHEST WO [facility] Work Phone: CTDI VOL 0.03 (mGy),7.42 (mGy) [facility] Work Phone: PHANTOM TYPE IEC Body Dosimetry Phantom,IEC Body Dosimetry Phantom [facility] Work Phone: [facility] Work Phone: CT Chest WO contraston 05-19 EXAMINATION: CT CHES T W/O CONTRAST 05/19/2024 09:45 AM CLINICAL HISTORY: rib fractures worsening hypoxia, reassess ribs, RLL opacities. ASSOCIATED DIAGNOSIS: rib fractures worsening hypoxia, reassess ribs, RLL opacities. ORDERING PROVIDER: MAURISIO BURTON TECHNOLOGISTS NOTE: COMPARISON: CT BODY IMAGE IMPORT(OPAL) 05/17/2024, 6:00 AM TECHNIQUE: Contiguous axial images of the chest without contrast were obtained from above the lung apices through the level of the adrenal glands. 2D sagittal and coronal reconstructions were obtained from the axial data. FINDINGS: Cardiovasculature: The heart is normal in size. Moderate coronary calcifications are noted. Atherosclerotic plaque is present within the thoracic aorta. Mediastinum/Pericardium: Unremarkable Pleura: There is a moderate right pleural effusion, increased in size in comparison to the prior study. There is a new small left pleural effusion. Central Airways: Widely patent. Lungs: Status post interval placement of a anterior right parietal pigtail drainage catheter with resolution of the pneumothorax. There is atelectasis bilaterally adjacent to the pleural effusions. There is mild diffuse bronchial and bronchiolar wall thickening. Nodules: No nodules are present that require follow up. Lymph Nodes: There are multiple prominent but not pathologically enlarged mediastinal lymph nodes. No axillary lymphadenopathy. Included images of the upper abdomen: Unremarkable Visualized musculoskeletal structures: There is diffuse osseous demineralization. Again seen are acute, displaced fractures of the right lateral and posterior fourth rib and the right lateral fifth through ninth ribs. The right 10th rib fracture is not visualized on this study. There is redistribution of the emphysema along the right lateral chest wall with new extension into the adjacent musculature. This appears overall stable in volume. There are partially visualized advanced degenerative changes of the left glenohumeral joint with surrounding osseous densities. 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 IMPRESSION: 1. Redemonstration of multiple acute, displaced right lateral and posterior rib fractures. 2. Interval placement of a right pleural pigtail drainage catheter with resolution of the pneumothorax. There is an increased moderate right pleural effusion and new small left pleural effusion with adjacent atelectasis, most prominently involving the right lower lobe. 3. Persistent subcutaneous emphysema along the right lateral chest wall. MACRO: None RADIOLOGY Aramis Lamar M D - 05/19/2024 EXAMINATION: CT CHEST W/O CONTRAST 05/19/2024 09:45 AM CLINICAL HISTORY: rib fractures worsening hypoxia, reassess ribs, RLL opacities. ASSOCIATED DIAGNOSIS: rib fractures worsening hypoxia, reassess ribs, RLL opacities. ORDERING PROVIDER: MAURISIO BURTON TECHNOLOGISTS NOTE: COMPARISON: CT BODY IMAGE IMPORT(OPAL) 05/17/2024, 6:00 AM TECHNIQUE: Contiguous axial images of the chest without contrast were obtained from above the lung apices through the level of the adrenal glands. 2D sagittal and coronal reconstructions were obtained from the axial data. FINDINGS: Cardiovasculature: The heart is normal in size. Moderate coronary calcifications are noted. Atherosclerotic plaque is present within the thoracic aorta. Mediastinum/Pericardium: Unremarkable Pleura: There is a moderate right pleural effusion, increased in size in comparison to the prior study. There is a new small left pleural effusion. Central Airways: Widely patent. Lungs: Status post interval placement of a anterior right parietal pigtail drainage catheter with resolution of the pneumothorax. There is atelectasis bilaterally adjacent to the pleural effusions. There is mild diffuse bronchial and bronchiolar wall thickening. Nodules: No nodules are present that require follow up. Lymph Nodes: There are multiple prominent but not pathologically enlarged mediastinal lymph nodes. No axillary lymphadenopathy. Included images of the upper abdomen: Unremarkable Visualized musculoskeletal structures: There is diffuse osseous demineralization. Again seen are acute, displaced fractures of the right lateral and posterior fourth rib and the right lateral fifth through ninth ribs. The right 10th rib fracture is not visualized on this study. There is redistribution of the emphysema along the right lateral chest wall with new extension into the adjacent musculature. This appears overall stable in volume. There are partially visualized advanced degenerative changes of the left glenohumeral joint with surrounding osseous densities. 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 IMPRESSION: 1. Redemonstration of multiple acute, displaced right lateral and posterior rib fractures. 2. Interval placement of a right pleural pigtail drainage catheter with resolution of the pneumothorax. There is an increased moderate right pleural effusion and new small left pleural effusion with adjacent atelectasis, most prominently involving the right lower lobe. 3. Persistent subcutaneous emphysema along the right lateral chest wall. MACRO: None [facility] Radiology Study observation (narrative) [facility] Care Plan Noteon 05-19-2024 Cushion Maker Hand Authentication Interface Message Text Normal [facility] Consultson 05-19-2024 Cushion Maker Hand Authentication Interface Message Text Normal [facility] MAGNESIUMon 05-19-2024 Magnesium [Mass/Vol] 2.5 mg/dL Normal 1.9-2.7 [facility] Comment on above: Performed By: #### CHI Cronin CH8 ####[facility] [id number] [place], [place], MRSA SCREENon 05-19-2024 MRSA DNA JASMINA+probe Ql (Unsp spec) CMR: No methicillin resistant Staphylococcus aureus isolated. Normal No methicillin resistant Staphylococcus aureus isolated. [facility] Comment on above: Performed By: #### C MR ####[facility] Srxfrcyrl4403 [place], [place] PHOSPHORUSon 05-19-2024 Phosphate [Mass/Vol] 3.2 mg/dL Normal 2.5-5.0 [facility] Comment on above: Performed By: #### CHI Cronin CH8 ####[facility] [id number] [place], [place], Post-Procedure Noteon 2023 Cushion Maker Hand Authentication Interface Message Text Normal [facility] Procedureson 05-19-2024 Cushion Maker Hand Authentication Interface Message Text Normal [facility] Cushion Maker Hand Authentication Interface Message Text Normal [facility] Progress Noteson 05-19-2024 Cushion Maker Hand Authentication Interface Message Text Normal [facility] Cushion Maker Hand Authentication Interface Message Text Normal [facility] Cushion Maker Hand Authentication Interface Message Text Normal [facility] Cushion Maker Hand Authentication Interface Message Text Normal [facility] Cushion Maker Hand Authentication Interface Message Text Normal [facility] Cushion Maker Hand Authentication Interface Message Text 1415: trauma team at the bedside to intubate pt. 1426: 14 etomidate given, 70 of Koko given 1429: #7.5 tube and 24 @ lips with positive color change 1433: Pressure 55/46, 100 phenyl mcg/mL given 1436: Levo started 1442: Waiting for XR confirmation Normal [facility] Cushion Maker Hand Authentication Interface Message Text Normal [facility] Cushion Maker Hand Authentication Interface Message Text Normal [facility] Cushion Maker Hand Authentication Interface Message Text Normal [facility] Cushion Maker Hand Authentication Interface Message Text Normal [facility] Student Noteon 05-19-2024 Cushion Maker Hand Authentication Interface Message Text Normal [facility] Cushion Maker Hand Authentication Interface Message Text Normal [facility] XR CHEST AP OR PA 1 VIEWon 0 05-19-2024 XR CHEST AP OR PA 1 VIEW Normal [facility] XR CHEST AP OR PA 1 VIEW Normal [facility] XR Chest Single viewon 05-19 EXAMINATION: XR CHES T AP OR PA 1 VIEW 05/19/2024 06:40 AM CLINICAL HISTORY: Chest tube assessment ASSOCIATED DIAGNOSIS: Chest tube assessment ORDERING PROVIDER: KIMBERLEE DIAZ NOTE: COMPARISON: / XR CHEST AP OR PA 1 VIEW 05/17/2024, 2:54 PM XRAY CHEST IMAGE IMPORT(OPAL) 05/17/2024, 6:00 AM XR CHEST AP OR PA 1 VIEW 05/18/2024, 6:10 AM FINDINGS: Lines, tubes, and devices: Right-sided pigtail chest tube in stable appropriate position. EKG leads overlie the chest. Lungs and pleura: Increased right pleural thickening. No appreciable pneumothorax. Increased opacity in the right lung base. Cardiomediastinal silhouette: Normal cardiomediastinal silhouette. Musculoskeletal: Multiple right rib fractures. IMPRESSION: Right-sided pleural drainage catheter is in stable position. There is increased right pleural thickening and right basilar opacity compared to the prior examination. There is no appreciable pneumothorax. Multiple right rib fractures are identified. MACRO: None RADIOLOGY Micah Lynne MD - 05/19/2024 EXAMINATION: XR CHEST AP OR PA 1 VIEW 05/19/2024 06:40 AM CLINICAL HISTORY: Chest tube assessment ASSOCIATED DIAGNOSIS: Chest tube assessment ORDERING PROVIDER: KIMBERLEE DIAZ NOTE: COMPARISON: / XR CHEST AP OR PA 1 VIEW 05/17/2024, 2:54 PM XRAY CHEST IMAGE IMPORT(OPAL) 05/17/2024, 6:00 AM XR CHEST AP OR PA 1 VIEW 05/18/2024, 6:10 AM FINDINGS: Lines, tubes, and devices: Right-sided pigtail chest tube in stable appropriate position. EKG leads overlie the chest. Lungs and pleura: Increased right pleural thickening. No appreciable pneumothorax. Increased opacity in the right lung base. Cardiomediastinal silhouette: Normal cardiomediastinal silhouette. Musculoskeletal: Multiple right rib fractures. IMPRESSION: Right-sided pleural drainage catheter is in stable position. There is increased right pleural thickening and right basilar opacity compared to the prior examination. There is no appreciable pneumothorax. Multiple right rib fractures are identified. MACRO: None [facility] (narrative[facility] Chest Single viewOrdered By: Micah Lynne on 05-19-2024 [employer] Work Phone: ANTI FXA-LMW HEPARINon 05-18 ANTI FXA-LMW HEPARIN ASSAY 0.44 IU/mL Normal The [employer] [facility] Comment on above: Order Comment: The r ecommended therapeutic range for treatment of thrombosis with Low Molecular Weight Heparin is 0.5 - 1.0 IU/mLThe recommended range for VTE prophylaxis with Low Molecular Weight Heparin is 0.2 - 0.4 IU/mL. Performed By: #### A XL ####S PATHOLOGY [id number] [place], [place], BASIC METABOLIC PANELon 05-02 Anion gap [Moles/Vol] 13 mmol/L Normal 10-20 [facility] Comment on above: Performed By: #### C H8 ####S PATHOLOGY [id number] [place], Calcium [Mass/Vol] 8.4 mg/dL Low 8.6-10.3 [facility] Comment on above: Performed By: #### C H8 ####S PATHOLOGY [id number] [place], Chloride [Moles/Vol] 98 mmol/L Normal 98-107 [facility] Comment on above: Performed By: #### C H8 ####S PATHOLOGY [id number] [place], CO2 [Moles/Vol] 23 mmol/L Normal 21-31 [facility] Comment on above: Performed By: #### C H8 ####[facility] VDARSKGQOD2171 [place], Creatinine [Mass/Vol] 2.09 mg/dL High 0.70-1.30 [facility] Comment on above: Performed By: #### C H8 ####S PATHOLOGY [id number] [place], ESTIMATED GFR (CKD-EPI) 31 mL/min/1.73sqm Low >=60 [facility] Comment on above: Result Comment: 2020 CKD EPI Equation using Creatinine without RaceComment: Estimated glomerular filtration rate (eGFR) is calculated without a race coefficient. Values should be interpreted in the context of the patient's full clinical presentation.Reference:1. Rishi C, Jorge M, Nic SILVA, et al.. A Unifying Approach for GFR Estimation: Recommendations of the NKF-ASN Task Force on Reassessing the Inclusion of Race in Diagnosing Kidney Disease. Citizen [place] Journal of Kidney Diseases 2021;79(2):268-88.e1.2. N Engl J Med 1 Vol. 385 Issue 19 Pages 7057-5734 Performed By: #### C H8 ####S PATHOLOGY PNUNGPJXMK6966 [place], Glucose [Mass/Vol] 106 mg/dL Normal 74-109 [facility] Comment on above: Performed By: #### C H8 ####S PATHOLOGY [id number] [place], Potassium [Moles/Vol] 6.6 mmol/L Critically high 3.5-5.0 [facility] Comment on above: Result Comment: Hemo lysis present Performed By: #### C H8 ####[facility] [id number] [place], Sodium [Moles/Vol] 127 mmol/L Low 136-145 [facility] Comment on above: Performed By: #### C H8 ####[facility] [id number] [place], Urea nitrogen [Mass/Vol] 50 mg/dL High 7-25 [facility] Comment on above: Performed By: #### C H8 ####[facility] UIIBHOXAKP1531 [place], Anion gap [Moles/Vol] 13 mmol/L Normal 10-20 [facility] Comment on above: Performed By: #### C H8 ####S PATHOLOGY TJRANCAFPE1707 [place], Calcium [Mass/Vol] 6.7 mg/dL Low 8.6-10.3 [facility] Comment on above: Performed By: #### C H8 ####S PATHOLOGY EUFXLZYRGD7439 [place], Chloride [Moles/Vol] 103 mmol/L Normal 98-107 [facility] Comment on above: Performed By: #### C H8 ####[facility] WSQZUFSKJG5351 [place], CO2 [Moles/Vol] 19 mmol/L Low 21-31 [facility] Comment on above: Performed By: #### C H8 ####[facility] OAGMYVTRNV1080 [place], Creatinine [Mass/Vol] 1.68 mg/dL High 0.70-1.30 [facility] Comment on above: Performed By: #### C H8 ####S PATHOLOGY ZIZQNPUJCT8353 [place], ESTIMATED GFR (CKD-EPI) 40 mL/min/1.73sqm Low >=60 [facility] Comment on above: Result Comment: 2020 CKD EPI Equation using Creatinine without RaceComment: Estimated glomerular filtration rate (eGFR) is calculated without a race coefficient. Values should be interpreted in the context of the patient's full clinical presentation.Reference:1. Rishi C, Jorge M, Nic SILVA, et al.. A Unifying Approach for GFR Estimation: Recommendations of the NKF-ASN Task Force on Reassessing the Inclusion of Race in Diagnosing Kidney Disease. Citizen Of [place] Journal of Kidney Diseases 2021;79(2):268-88.e1.2. N Engl J Med 2020 Vol. 385 Issue 19 Pages 4205-2100 Performed By: #### C H8 ####[facility] ZMGLAIPZBY4789 [place], Glucose [Mass/Vol] 74 mg/dL Normal 74-109 [facility] Comment on above: Performed By: #### C H8 ####[facility] TKJULPUKFC2119 [place], Potassium [Moles/Vol] 5.4 mmol/L High 3.5-5.0 [facility] Comment on above: Performed By: #### C H8 ####[facility]OLOG[facility] [id number] [place], Sodium [Moles/Vol] 130 mmol/L Low 136-145 [facility] Comment on above: Performed By: #### C H8 ####[facility] PATHOLOGY [id number] [place], Urea nitrogen [Mass/Vol] 42 mg/dL High 7-25 [facility] Comment on above: Performed By: #### C H8 ####[facility] PATHOLOGY [id number] [place] [address], BLOOD GAS, ARTERIALon 2023 CR JOSEPH 0.4 mmol/L Normal -2.0-3.0 [facility] Comment on above: Performed By: #### C R BGA ####[facility] PATHOLOGY RJODEPYSPV77[address] [place] [address], CR PCO2 50.9 mm Hg High 35.0-45.0 [facility] Comment on above: Performed By: #### C R BGA ####[facility] PATHOLOGY [id number] [place] [address], CR PHA 7.329 Low 7.350-7.450 [facility] Comment on above: Performed By: #### C R BGA ####[facility] PATHOLOG[facility] [id number] [place], CR PO2 98 mm Hg Normal 80-100 [facility] Comment on above: Performed By: #### C R BGA ####[facility] PATHOLOG[facility] [id number] [place], [place], FIO2 (CATEGORY) 40% Normal [facility] Comment on above: Performed By: #### C R BGA ####S PATHOLOGY [id number] [place], HCO3 (Bld) [Moles/Vol] 26 mmol/L Normal 21-28 [facility] Comment on above: Performed By: #### C R BGA ####[facility] PATHOLOG[facility] [id number] [place], MODE BIPAP Normal [facility] Comment on above: Performed By: #### C R BGA ####[facility] PATH[facility] [id number] [place], Oxygen saturation in Blood 97.7 % Normal 95.0-99.0 [facility] Comment on above: Performed By: #### C R BGA ####[facility] PATHOLOG[facility] [id number] [place], CALCIUM, IONIZEDon CR ICA 1.05 mmol/L Low 1.15-1.33 [facility] Comment on above: Result Comment: This test was developed, and its performance characteristics determined by the Department of Pathology of [facility]. It has not been cleared or approved by the FDA. This test is used for clinical purposes only. Performed By: #### C R ICA ####[facility] PATHOLOGY MUTAEDUOWL[address] [place] [address], COMPLETE BLOOD COUNTon 05-18 Erythrocyte distribution width (RBC) [Ratio] 13.9 % Normal 11.5-14.5 [facility] Comment on above: Performed By: #### C BC ####[facility] PATHOLOGY QICNAGMEUF09[address] [place] [address], Hematocrit (Bld) [Volume fraction] 28.9 % Low 41.0-53.0 [facility] Comment on above: Performed By: #### C BC ####[facility] PATHOLOGY [id number] [place] [address], Hemoglobin (Bld) [Mass/Vol] 9.4 g/dL Low 13.9-16.3 [facility] Comment on above: Performed By: #### C BC ####[facility] PATHOLOG[facility] [id number] [place], MCH (RBC) [Entitic mass] 32.7 pg Normal 26.0-34.0 [facility] Comment on above: Performed By: #### C BC ####[facility] PATHOLOGY [id number] [place] [address], MCHC (RBC) [Mass/Vol] 32.5 g/dL Normal 32.0-35.9 [facility] Comment on above: Performed By: #### C BC ####[facility] [id number] [place], [place], MCV (RBC) [Entitic vol] 101 fL High 80-100 [facility] Comment on above: Performed By: #### C BC ####[facility] PATH[facility] [id number] [place], [place], Platelet mean volume (Bld) [Entitic vol] 6.9 fL Low 7.5-11.2 [facility] Comment on above: Performed By: #### C BC ####[facility] [id number] [place], [place], Platelets (Bld) [#/Vol] 100 10*3/uL Low 150-400 [facility] Comment on above: Performed By: #### C BC ####[facility] [id number] [place], [place], RBC (Bld) [#/Vol] 2.87 10*6/uL Low 4.50-5.90 The [facility] Comment on above: Performed By: #### C BC ####[facility] PATH[facility] [id number] [place], [place], WBC (Bld) [#/Vol] 3.8 10*3/uL Low 4.5-11.5 The [facility] Comment on above: Performed By: #### C BC ####[facility] PATH[facility] [id number] [place], [place], Consultson 05-18-2024 Cushion Maker Hand Authentication Interface Message Text Normal [facility] Cushion Maker Hand Authentication Interface Message Text Normal [facility] GLUCOSE, FINGERSTICK-IN OFFI CEon 05-18-2024 Glucose [Mass/Vol] 102 mg/dL Normal 80-116 [facility] Comment on above: Performed By: #### 8 2948 ####NURSING GLUCOSE [id number] [place], Glucose [Mass/Vol] 72 mg/dL Low 80-116 The [facility] Comment on above: Performed By: #### 8 2948 ####NURSING GLUCOSE [id number] [place], [address] Glucose [Mass/Vol] 46 mg/dL Critically low 80-116 Th e [facility] Comment on above: Result Comment: Will Repeat Test Performed By: #### 8 2948 ####NURSING GLUCOSE [id number] [place], [address] Glucose [Mass/Vol] 120 mg/dL High 80-116 The [facility] Comment on above: Performed By: #### 8 2948 ####NURSING GLUCOSE [id number] [place], [address] POTASSIUM, WHOLE BLOODon Potassium [Moles/Vol] 5.0 mmol/L Normal 3.5-5.0 [facility] Comment on above: Performed By: #### C R K ####[facility] [id number] [place], Potassium [Moles/Vol] 5.7 mmol/L High 3.5-5.0 [facility] Comment on above: Performed By: #### C R K ####[facility] [id number] [place], [place], Progress Noteson 05-18-2024 Cushion Maker Hand Authentication Interface Message Text Normal [facility] Cushion Maker Hand Authentication Interface Message Text Normal The [facility] Cushion Maker Hand Authentication Interface Message Text Normal The [facility] Student Noteon 05-18-2024 Cushion Maker Hand Authentication Interface Message Text Normal [facility] XR CHEST AP OR PA 1 VIEWon 0 05-18-2024 XR CHEST AP OR PA 1 VIEW Normal [facility] XR Chest Single viewon 05-18 EXAMINATION: XR CHES T AP OR PA 1 VIEW 05/18/2024 06:10 AM CLINICAL HISTORY: CT MGMT ASSOCIATED DIAGNOSIS: CT MGMT ORDERING PROVIDER: NIK [employer] NOTE: COMPARISON: XR CHEST AP OR PA 1 VIEW 05/17/2024, 2:54 PM FINDINGS: Lines, tubes, and devices: A pigtail pleural catheter is present overlying the right mid to lower lung region medially. Lungs and pleura: Blunting of the right costophrenic angle. Consolidative opacities noted in the right lung base. Cardiomediastinal silhouette: Normal cardiomediastinal silhouette. Musculoskeletal: Multiple right-sided rib fractures are present and unchanged from previously. Similar volume of subcutaneous gas in the chest wall. High riding right humeral head suggests rotator cuff tendinopathy. Multilevel degenerative changes in the thoracolumbar spine. IMPRESSION: 1. Unchanged right-sided rib fractures. The right pleural catheter is in unchanged position. Subcutaneous gas in the right chest wall, similar to previously. No pneumothorax identified. 2. Small right pleural effusion with right basilar consolidation which may represent atelectasis or a superimposed infectious process would be difficult to exclude. MACRO: None RADIOLOGY Vu Sullivan MD - 05/18/2024 EXAMINATION: XR CHEST AP OR PA 1 VIEW 05/18/2024 06:10 AM CLINICAL HISTORY: CT MGMT ASSOCIATED DIAGNOSIS: CT MGMT ORDERING PROVIDER: NIK [employer] NOTE: COMPARISON: XR CHEST AP OR PA 1 VIEW 05/17/2024, 2:54 PM FINDINGS: Lines, tubes, and devices: A pigtail pleural catheter is present overlying the right mid to lower lung region medially. Lungs and pleura: Blunting of the right costophrenic angle. Consolidative opacities noted in the right lung base. Cardiomediastinal silhouette: Normal cardiomediastinal silhouette. Musculoskeletal: Multiple right-sided rib fractures are present and unchanged from previously. Similar volume of subcutaneous gas in the chest wall. High riding right humeral head suggests rotator cuff tendinopathy. Multilevel degenerative changes in the thoracolumbar spine. IMPRESSION: 1. Unchanged right-sided rib fractures. The right pleural catheter is in unchanged position. Subcutaneous gas in the right chest wall, similar to previously. No pneumothorax identified. 2. Small right pleural effusion with right basilar consolidation which may represent atelectasis or a superimposed infectious process would be difficult to exclude. MACRO: None [employer] Radiology Study observation (narrative) [employer] XR Chest Single viewOrdered By: Vu Sullivan on 05-18-2024 [employer] Work Phone: ABO RH TYPEon 05-17-2024 ABO and Rh group Nom (Bld) Blood group A Rh(D) positive Normal The [facility] [facility] Comment on above: Performed By: #### A TERRI ####[facility] [id number] [place], [place], ABO/Rh History Checkon 05-17 ABO/Rh History Check Patient discharged prior Normal [facility] Comment on above: Performed By: #### 1 [id number] #### [facility] Laboratory [address] [place] [address] Anesthesia Acute Painon 05-02 Cushion Maker Hand Authentication Interface Message Text Normal [facility] Cushion Maker Hand Authentication Interface Message Text Normal [facility] Anesthesia Procedure Noteson 05-17-2024 Cushion Maker Hand Authentication Interface Message Text Invalid Interpretation Code [facility] BASIC METABOLIC PANELon 05-02 Anion gap [Moles/Vol] 13 mmol/L Normal 10-20 [facility] Comment on above: Performed By: #### P HOS, CH8, HEPATIC, MG ####[facility] [id number] [place], Calcium [Mass/Vol] 9.7 mg/dL Normal 8.6-10.3 [facility] Comment on above: Performed By: #### P HOS, CH8, HEPATIC, MG ####[facility] [id number] [place], Chloride [Moles/Vol] 91 mmol/L Low 98-107 [facility] Comment on above: Performed By: #### P HOS, CH8, HEPATIC, MG ####[facility] [id number] [place], CO2 [Moles/Vol] 28 mmol/L Normal 21-31 [facility] Comment on above: Performed By: #### P HOS, CH8, HEPATIC, MG ####[facility] [id number] [place], Creatinine [Mass/Vol] 1.22 mg/dL Normal 0.70-1.30 [facility] Comment on above: Performed By: #### P HOS, CH8, HEPATIC, MG ####[facility] [id number] [place], ESTIMATED GFR (CKD-EPI) 59 mL/min/1.73sqm Low >=60 [facility] Comment on above: Result Comment: 2020 CKD EPI Equation using Creatinine without RaceComment: Estimated glomerular filtration rate (eGFR) is calculated without a race coefficient. Values should be interpreted in the context of the patient's full clinical presentation.Reference:1. Rishi C, Jorge M, Nic DC, et al.. A Unifying Approach for GFR Estimation: Recommendations of the NKF-ASN Task Force on Reassessing the Inclusion of Race in Diagnosing Kidney Disease. Citizen Of [place] Journal of Kidney Diseases 202;79(2):268-88.e1.2. N Engl J Med 1 Vol. 385 Issue 19 Pages 6848-1176 Performed By: #### P HOS, CH8, HEPATIC, MG ####[facility] [id number] [place], Glucose [Mass/Vol] 155 mg/dL High 74-109 [facility] Comment on above: Performed By: #### P HOS, CH8, HEPATIC, MG ####[facility] [id number] [place], Potassium [Moles/Vol] 5.3 mmol/L High 3.5-5.0 [facility] Comment on above: Performed By: #### P HOS, CH8, HEPATIC, MG ####[facility] [id number] [place], Sodium [Moles/Vol] 127 mmol/L Low 136-145 [facility] Comment on above: Performed By: #### P HOS, CH8, HEPATIC, MG ####[facility] [id number] [place], Urea nitrogen [Mass/Vol] 25 mg/dL Normal 7-25 [facility] Comment on above: Performed By: #### P HOS, CH8, HEPATIC, MG ####[facility] [id number] [place], Anion gap [Moles/Vol] 13 mmol/L Normal 10-20 [facility] Comment on above: Performed By: #### E CATIA, hiv1 hiv2 agab scrn, CH8 ####[facility] [id number] [place], Calcium [Mass/Vol] 9.6 mg/dL Normal 8.6-10.3 [facility] Comment on above: Performed By: #### E CATIA, hiv1 hiv2 agab scrn, CH8 ####S PATHOLOGY [id number] [place], Chloride [Moles/Vol] 91 mmol/L Low 98-107 [facility] Comment on above: Performed By: #### E CATIA, hiv1 hiv2 agab scrn, CH8 ####S PATHOLOGY [id number] [place], CO2 [Moles/Vol] 28 mmol/L Normal 21-31 [facility] Comment on above: Performed By: #### E CATIA, hiv1 hiv2 agab scrn, 8 ####[facility] PATH[facility] [id number] [place], Creatinine [Mass/Vol] 0.87 mg/dL Normal 0.70-1.30 [facility] Comment on above: Performed By: #### E CATIA, hiv1 hiv2 agab scrn, CH8 ####S PATHOLOGY [id number] [place], ESTIMATED GFR (CKD-EPI) 86 mL/min/1.73sqm Normal >=60 [facility] Comment on above: Result Comment: 2020 CKD EPI Equation using Creatinine without RaceComment: Estimated glomerular filtration rate (eGFR) is calculated without a race coefficient. Values should be interpreted in the context of the patient's full clinical presentation.Reference:1. Rishi C, Jorge M, Nic [place], et al.. A Unifying Approach for GFR Estimation: Recommendations of the NKF-ASN Task Force on Reassessing the Inclusion of Race in Diagnosing Kidney Disease. Citizen Of [place] Journal of Kidney Diseases 202;79(2):268-88.e1.2. N Engl J Med 1 Vol. 385 Issue 19 Pages 0977-5911 Performed By: #### E CATIA, hiv1 hiv2 agab scrn, CH8 ####S PATHOLOGY [id number] [place], Glucose [Mass/Vol] 150 mg/dL High 74-109 [facility] Comment on above: Performed By: #### Tobias CATIA, hiv1 hiv2 agab scrn, CH8 ####[facility] PATH[facility] [id number] [place], Potassium [Moles/Vol] 5.2 mmol/L High 3.5-5.0 [facility] Comment on above: Result Comment: Hemo lysis present Performed By: #### E CATIA, hiv1 hiv2 agab scrn, CH8 ####[facility] PATH[facility] [id number] [place], Sodium [Moles/Vol] 127 mmol/L Low 136-145 The [facility] Comment on above: Performed By: #### Tobias CATIA, hiv1 hiv2 agab scrn, 8 ####[facility] PATH[facility] [id number] [place] [address], Urea nitrogen [Mass/Vol] 22 mg/dL Normal 7-25 The [facility] Comment on above: Performed By: #### Tobias CATIA, hiv1 hiv2 agab scrn, 8 ####[facility] PATH[facility] [id number] [place] [address], BLOOD GAS, ARTERIALon 2023 CR JOSEPH -0.7 mmol/L Normal -2.0-3.0 The [facility] Comment on above: Performed By: #### C R BGA ####[facility] PATHOLOG[facility] [id number] [place] [address], CR PCO2 52.3 mm Hg High 35.0-45.0 The [facility] Comment on above: Performed By: #### C R BGA ####[facility] PATHOLOG[facility] [id number] [place] [address], CR PHA 7.307 Low 7.350-7.450 The [facility] Comment on above: Performed By: #### C R BGA ####[facility] PATH[facility] [id number] [place] [address], CR PO2 85 mm Hg Normal 80-100 [facility] Comment on above: Performed By: #### C R BGA ####[facility] PATH[facility] [id number] [place], FIO2 (CATEGORY) 40% Normal [facility] Comment on above: Performed By: #### C R BGA ####[facility] PATH[facility] [id number] [place], HCO3 (Bld) [Moles/Vol] 25 mmol/L Normal 21-28 [facility] Comment on above: Performed By: #### C R BGA ####[facility] PATH[facility] [id number] [place] [address], MODE BIPAP Normal [facility] Comment on above: Performed By: #### C R BGA ####[facility] PATHOLOG[facility] [id number] [place] [address], Oxygen saturation in Blood 95.9 % Normal 95.0-99.0 [facility] Comment on above: Performed By: #### C R BGA ####[facility] PATHOLOG[facility] [id number] [place] [address], CR JOSEPH -2.4 mmol/L Low -2.0-3.0 [facility] Comment on above: Performed By: #### C R BGA ####[facility] PATH[facility] [id number] [place] [address], CR PCO2 60.3 mm Hg High 35.0-45.0 [facility] Comment on above: Performed By: #### C R BGA ####[facility] PATH[facility] [id number] [place] [address], CR PHA 7.244 Low 7.350-7.450 [facility] Comment on above: Performed By: #### C R BGA ####[facility] [id number] [place], CR PO2 82 mm Hg Normal 80-100 [facility] Comment on above: Performed By: #### C R BGA ####[facility] PATH[facility] [id number] [place] [address], FIO2 (CATEGORY) 40% Normal [facility] Comment on above: Performed By: #### C R BGA ####[facility] [id number] [place], HCO3 (Bld) [Moles/Vol] 25 mmol/L Normal 21-28 [facility] Comment on above: Performed By: #### C R BGA ####[facility] [id number] [place] [address], MODE BIPAP Normal [facility] Comment on above: Performed By: #### C R BGA ####[facility] PATH[facility] [id number] [place] [address], Oxygen saturation in Blood 94.8 % Low 95.0-99.0 [facility] Comment on above: Performed By: #### C R BGA ####[facility] [id number] [place] [address], CR JOSEPH 0.1 mmol/L Normal -2.0-3.0 [facility] Comment on above: Performed By: #### C R BGA ####[facility] [id number] [place] [address], CR PCO2 66.5 mm Hg High 35.0-45.0 [facility] Comment on above: Performed By: #### C R BGA ####[facility] [id number] [place] [address], CR PHA 7.248 Low 7.350-7.450 [facility] Comment on above: Performed By: #### C R BGA ####[facility] XHYLPORHNA0140[address] [place] [address], CR PO2 103 mm Hg High 80-100 [facility] Comment on above: Performed By: #### C R BGA ####[facility] [id number] [place], FIO2 (CATEGORY) >5 LPM Normal [facility] Comment on above: Performed By: #### C R BGA ####[facility] [id number] [place], HCO3 (Bld) [Moles/Vol] 28 mmol/L Normal 21-28 [facility] Comment on above: Performed By: #### C R BGA ####[facility] [id number] [place], MODE Nasal Canula Normal [facility] Comment on above: Result Comment: 6L Performed By: #### C R BGA ####[facility] PATH[facility] [id number] [place], Oxygen saturation in Blood 97.5 % Normal 95.0-99.0 [facility] Comment on above: Performed By: #### C R BGA ####[facility] [id number] [place], CALCIUM, IONIZEDon CR ICA 1.11 mmol/L Low 1.15-1.33 [facility] Comment on above: Result Comment: This test was developed, and its performance characteristics determined by the Department of Pathology of [facility]. It has not been cleared or approved by the FDA. This test is used for clinical purposes only. Performed By: #### C R ICA, LACT ####[facility] [id number] [place] [address], CR ICA 1.15 mmol/L Normal 1.15-1.33 [facility] Comment on above: Result Comment: This test was developed, and its performance characteristics determined by the Department of Pathology of [facility]. It has not been cleared or approved by the FDA. This test is used for clinical purposes only. Performed By: #### C R ICA ####S PATHOLOGY [id number] [place], COMPLETE BLOOD COUNTon 05-17 Erythrocyte distribution width (RBC) [Ratio] 13.7 % Normal 11.5-14.5 [facility] Comment on above: Performed By: #### C BC ####[facility] [id number] [place], Hematocrit (Bld) [Volume fraction] 33.6 % Low 41.0-53.0 [facility] Comment on above: Performed By: #### C BC ####[facility] [id number] [place], Hemoglobin (Bld) [Mass/Vol] 11.2 g/dL Low 13.9-16.3 [facility] Comment on above: Performed By: #### C BC ####[facility] [id number] [place], MCH (RBC) [Entitic mass] 33.3 pg Normal 26.0-34.0 [facility] Comment on above: Performed By: #### C BC ####[facility] [id number] [place], MCHC (RBC) [Mass/Vol] 33.3 g/dL Normal 32.0-35.9 [facility] Comment on above: Performed By: #### C BC ####[facility] [id number] [place], MCV (RBC) [Entitic vol] 100 fL Normal 80-100 [facility] Comment on above: Performed By: #### C BC ####[facility] [id number] [place], Platelet mean volume (Bld) [Entitic vol] 6.7 fL Low 7.5-11.2 [facility] Comment on above: Performed By: #### C BC ####[facility] [id number] [place], Platelets (Bld) [#/Vol] 204 10*3/uL Normal 150-400 [facility] Comment on above: Performed By: #### C BC ####[facility] [id number] [place], RBC (Bld) [#/Vol] 3.37 10*6/uL Low 4.50-5.90 [facility] Comment on above: Performed By: #### C BC ####[facility] [id number] [place], WBC (Bld) [#/Vol] 9.5 10*3/uL Normal 4.5-11.5 [facility] Comment on above: Performed By: #### C BC ####[facility] [id number] [place], Erythrocyte distribution width (RBC) [Ratio] 13.5 % Normal 11.5-14.5 [facility] Comment on above: Performed By: #### C BC ####[facility] [id number] [place], Hematocrit (Bld) [Volume fraction] 41.9 % Normal 41.0-53.0 [facility] Comment on above: Performed By: #### C BC ####[facility] [id number] [place], Hemoglobin (Bld) [Mass/Vol] 14.1 g/dL Normal 13.9-16.3 [facility] Comment on above: Performed By: #### C BC ####[facility] [id number] [place], MCH (RBC) [Entitic mass] 33.2 pg Normal 26.0-34.0 [facility] Comment on above: Performed By: #### C BC ####[facility] [id number] [place], MCHC (RBC) [Mass/Vol] 33.6 g/dL Normal 32.0-35.9 [facility] Comment on above: Performed By: #### C BC ####[facility] [id number] [place], MCV (RBC) [Entitic vol] 99 fL Normal 80-100 [facility] Comment on above: Performed By: #### C BC ####[facility] [id number] [place], Platelet mean volume (Bld) [Entitic vol] 6.7 fL Low 7.5-11.2 [facility] Comment on above: Performed By: #### C BC ####[facility] [id number] [place], Platelets (Bld) [#/Vol] 250 10*3/uL Normal 150-400 [facility] Comment on above: Performed By: #### C BC ####S PATHOLOGY [id number] [place], RBC (Bld) [#/Vol] 4.24 10*6/uL Low 4.50-5.90 [facility] Comment on above: Performed By: #### C BC ####S PATHOLOGY [id number] [place], WBC (Bld) [#/Vol] 13.4 10*3/uL High 4.5-11.5 [facility] Comment on above: Performed By: #### C BC ####[facility] [id number] [place], [place], CT Abdomen/Pelvis w/ Contras ton 05-17-2024 CT Abdomen/Pelvis w/ Contrast Exam Date/Time: 05/16/2024 22:39 EDT Reason for Exam: ABDOMINAL TRAUMA;Trauma Report PLEASE SEE CT Chest w/ Contrast REPORT DATED: 05/16/2024. All CT scans at this facility use dose modulation, iterative reconstruction, and/or weight based dosing when appropriate to reduce radiation dose to as low as reasonably achievable. Ordering Provider: Kenney Arias FINAL REPORT Dictated: 05/17/2024 10:39 am Toñito Myrick MD Signed (Electronic Signature): 05/17/2024 10:39 am Signed by: Toñito Myrick MD Transcribed by: [place] Technologist: ERNIE Technical Comments GFR (mL/min/1/73m2) trauma Contrast: Isovue 300 Contrast amount in ml's: 130 Rectal Contrast Given? No Normal [facility] CT Chest w/ Contraston 05-17 CT Chest w/ Contrast Exam Date/Time: 05/16/2024 22:39 EDT Reason for Exam: CHEST TRAUMA, MOD-SEVERE;Trauma Report IMPRESSION: NUMEROUS RIGHT RIB FRACTURES WITH MODERATE PNEUMOHEMOTHORAX. RIGHT HEMIPELVIS FRACTURES, DESCRIBED. EXAM: CT Chest w/ Contrast, CT Abdomen/Pelvis w/ Contrast, CT Spine Thoracic, CT Spine Lumbar DATE: 05/16/2024 10:10 PM CLINICAL HISTORY: Trauma, CHEST TRAUMA, MOD-SEVERE. COMPARISON: None available. TECHNIQUE: Spiral imaging was obtained of the chest, abdomen and pelvis after the infusion of approximately 130 mL of Isovue 300 contrast. Routine multiplanar reformatted reconstructions were performed; including dedicated reconstructions of the thoracic and lumbar spine. All CT scans at this facility use dose modulation, iterative reconstruction, and/or weight based dosing when appropriate to reduce radiation dose to as low as reasonably achievable. Unless otherwise stated, incidental findings identified in this report do not require routine follow-up imaging. CHEST CT FINDINGS: Mildly displaced lateral right fourth through ninth rib fractures, with nondisplaced lateral right third, 10th and segmented medial third through sixth and ninth ribs. Approximately 20-25% right pneumothorax, upper to 1 cm layering right hemothorax, overlying soft tissue emphysema and mild dependent atelectasis There is no evidence of significant pulmonary contusion, organized hematoma, left pneumothorax, left pleural or pericardial effusion, evidence of great vessel injury, or other posttraumatic complication identified. Coronary artery calcifications are present. ABDOMEN AND PELVIS CT FINDINGS: Mildly displaced fractures of the right pubic rami extending into the right anterior acetabular column with moderate ill-defined surrounding ecchymosis and an approximately 8 mm pseudoaneurysm anterior right acetabular fractures (image 71 - axial series 11). An approximately 3.7 x 2.6 x 5 cm (AP, transverse and sagittal dimensions) organized hematoma is noted lateral to the right iliac wing (image 54 - Report axial series 11). There is no evidence of solid organ injury, free fluid, displaced fractures, or other posttraumatic complication identified elsewhere. THORACIC SPINE CT FINDINGS: There is no fracture, dislocation, evidence of instability, or acute paraspinal soft tissue abnormalities identified. Mild degenerative changes are present. LUMBAR SPINE CT FINDINGS: There is no fracture, dislocation, evidence of instability, or acute paraspinal soft tissue abnormalities identified. 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 Ordering Provider: Kenney Arias FINAL REPORT Dictated: 05/17/2024 10:38 am Toñito Myrick MD Signed (Electronic Signature): 05/17/2024 10:38 am Signed by: Toñito Myrick MD Transcribed by: [place] Technologist: ERNIE Technical Comments GFR (mL/min/1/73m2) TRAUMA Contrast: Isovue 300 Contrast amount in ml's: 130 Normal [facility] CT Head or Brain w/o Contras ton 05-17-2024 CT Head or Brain w/o Contrast Exam Date/Time: 05/16/2024 22:39 EDT Reason for Exam: trauma, fall down stairs;Injury Report IMPRESSION: NO ACUTE INTRACRANIAL PROCESS IDENTIFIED. EXAM: CT Head or Brain w/o Contrast DATE: 05/16/2024 10:17 PM CLINICAL HISTORY: Injury, trauma, fall down stairs. COMPARISON: None available. TECHNIQUE: Routine. All CT scans at this facility use dose modulation, iterative reconstruction, and/or weight based dosing when appropriate to reduce radiation dose to as low as reasonably achievable. FINDINGS: There is no intracranial hemorrhage, mass effect, midline shift, extra-axial collection, evidence of hydrocephalus, skull fracture, or a recent ischemic infarct identified. Mild generalized cerebral volume loss is present, with mild patchy supratentorial white matter changes most consistent with chronic small vessel ischemic disease. The mastoid air cells and visualized paranasal sinuses are essentially clear. Ordering Provider: Santos Mann FINAL REPORT Dictated: 05/17/2024 10:17 am Toñito Myrick MD Signed (Electronic Signature): 05/17/2024 10:17 am Signed by: Toñito Myrick MD Transcribed by: [place] Technologist: CHRISTIN Sood [facility] CT PELVIS BONY W/O CONTRASTo n 05-17-2024 CT PELVIS BONY W/O CONTRAST Normal [facility] CT Spine Cervical w/o Contra ston 05-17-2024 CT Spine Cervical w/o Contrast Exam Date/Time: 05/16/2024 22:39 EDT Reason for Exam: NECK TRAUMA, DANGEROUS INJURY MECHANISM;Trauma Report IMPRESSION: NO FRACTURE OR EVIDENCE OF CERVICAL SPINE INJURY IDENTIFIED. EXAM: CT Spine Cervical w/o Contrast DATE: 05/16/2024 10:10 PM CLINICAL HISTORY: Trauma, NECK TRAUMA, DANGEROUS INJURY MECHANISM. COMPARISON: None available. TECHNIQUE: Spiral unenhanced imaging was obtained of the cervical spine, with routine reconstructions performed. All CT scans at this facility use dose modulation, iterative reconstruction, and/or weight based dosing when appropriate to reduce radiation dose to as low as reasonably achievable. FINDINGS: The spine is visualized from the craniovertebral junction through the T1-T2 level. There is no fracture, dislocation, or acute paraspinal soft tissue abnormalities identified. Mild to moderate degenerative changes are present, with multilevel zoit-oo-rywrvyhr neural foraminal narrowing and approximately 3 to 4 mm of anterolisthesis of C2 over C3 and 2 to 3 mm C7 over T1. There is no high-grade central spinal stenosis. Moderate calcified plaque is noted of the carotid bulbs. Ordering Provider: Kenney Arias FINAL REPORT Dictated: 05/17/2024 10:21 am Toñito Myrick MD Signed (Electronic Signature): 05/17/2024 10:21 am Signed by: Toñito Myrick MD Transcribed by: [place] Technologist: ERNIE Sood [facility] CTA HEAD/NECK W/on CTA HEAD/NECK W/ Normal [facility] Care Plan Noteon 05-17-2024 Cushion Maker Hand Authentication Interface Message Text Normal [facility] Consultson 05-17-2024 Cushion Maker Hand Authentication Interface Message Text Normal [facility] Cushion Maker Hand Authentication Interface Message Text Normal [facility] Cushion Maker Hand Authentication Interface Message Text Normal [facility] ED Clinical Summaryon 2023 ED Clinical Summary ED Clinical Summary [place] [address] ED Clinical Summary Person Information Name: ANDREA MICHELLE/[facility] Age: 83 Years : 1940 Sex: Male Language: Norwegian PCP: DONY MOORE DO Marital Status: Visit Id: Visit Reason: Trauma - major; Back pain; Fall; Closed head injury with LOC; FALL Speciality: Acuity: 2 Enc Type: Emergency Med Service: Emergency Arrival: 05/16/2024 21:51:40 Discharge: 05/16/2024 23:55:00 LOS: 000 02:04 Checkin: 05/16/2024 21:51:40 Checkout: 05/16/2024 23:55:00 Dispo Type: Undefined HC Fac EVENTS: Event Name Event Status Request Date/Time Start Date/Time Complete Date/Time Arrive Complete 05/16/2024 21:51:40 05/16/2024 21:51:40 05/16/2024 21:51:40 Document Home Meds Request 05/16/2024 21:51:40 Triage Complete 05/16/2024 21:51:40 05/16/2024 22:07:14 05/16/2024 22:07:14 Bed Assign Complete 05/16/2024 21:51:40 05/16/2024 21:51:40 05/16/2024 21:51:40 Dr Exam Complete 05/16/2024 21:51:40 05/16/2024 21:59:36 05/16/2024 21:59:36 RN Exam Complete 05/16/2024 21:51:40 05/16/2024 22:45:31 05/16/2024 22:45:31 X-Ray Complete 05/16/2024 21:53:59 05/16/2024 22:00:20 05/16/2024 22:03:21 EKG Complete 05/16/2024 21:54:30 05/16/2024 23:08:06 NPO Request 05/16/2024 21:54:30 Pending Labs Request 05/16/2024 21:54:30 Lab Request 05/16/2024 21:54:30 Urine Collect Request 05/16/2024 21:54:30 Patient Care Request 05/16/2024 21:54:30 RT Request 05/16/2024 21:54:30 CT Complete 05/16/2024 21:54:30 05/16/2024 22:10:24 05/16/2024 22:39:47 Blood Collect Request 05/16/2024 21:54:30 Registration Complete 05/16/2024 21:59:36 05/16/2024 22:35:03 05/16/2024 22:35:03 Pending Labs Complete 05/16/2024 22:01:23 05/16/2024 22:01:23 05/16/2024 22:29:15 Lab Complete 05/16/2024 22:01:23 05/16/2024 22:01:23 05/16/2024 22:29:15 Pending Labs Complete 05/16/2024 22:01:47 05/16/2024 22:01:47 05/16/2024 22:55:30 Lab Complete 05/16/2024 22:01:47 05/16/2024 22:01:47 05/16/2024 22:55:30 Wet Read Request 05/16/2024 22:03:21 CT Complete 05/16/2024 22:16:50 05/16/2024 22:17:03 05/16/2024 22:39:05 Pending Labs Request 05/16/2024 22:29:16 Lab Request 05/16/2024 22:29:16 Reg Complete Request 05/16/2024 22:35:03 Reg Bed Request Complete 05/16/2024 22:35:03 05/16/2024 22:35:03 05/16/2024 22:35:03 Possible Sepsis Request 05/16/2024 22:40:44 Fall Risk Request 05/16/2024 22:45:31 X-Ray Complete 05/16/2024 23:01:18 05/16/2024 23:10:56 05/16/2024 23:12:13 Patient Care Request 05/16/2024 23:04:24 Transfer Complete 05/16/2024 23:04:24 05/17/2024 00:14:42 05/17/2024 00:14:42 Discharge Complete 05/17/2024 00:14:42 05/17/2024 00:14:42 05/17/2024 00:14:42 ADDRESS: [address] [place] [phone] [facility] DOC NOTES: MEDICAL INFORMATION: Prescriptions Given: PATIENT EDUCATION INFORMATION: Instructions: Follow up: DIAGNOSIS: Closed head injury; Hyponatremia; Pneumothorax; Rib fractures Normal [facility] ED Noteson 05-17-2024 Cushion Maker Hand Authentication Interface Message Text PT BIB MLF; tx from [facility] with right sided hemopneumo; pt has pig tail catheter in place on right side; pt fell down 6-8 stairs and hit head +LOC Normal [facility] ED Patient Education Noteon 05-17-2024 ED Patient Education Note ED Patient Education Note Normal [facility] ED Patient Summaryon ED Patient Summary ED Patient Summary [address] [address] Patient Discharge Instructions Person Information Name: ANDREA MICHELLE Age: 83 Years Arrival Date: 05/16/2024 21:51:40 Discharge Diagnosis: Closed head injury; Hyponatremia; Pneumothorax; Rib fractures Primary Care Physician: DONY MOORE DO Provider Information Primary Provider: Ludmila Leach DO Advanced Ball Point Splitter:None The exam and treatment you received in the Emergency Department were for an urgent problem and are not intended as complete care. It is important that you follow up with a doctor, nurse practitioner, or physician?s operating room assistant for ongoing care. If your symptoms become worse or you do not improve as expected and you are unable to reach your usual health care provider, you should return to the Emergency Department. We are available 24 hours a day. ANDREA MICHELLE has been given the following list of patient education materials, prescriptions and follow-up instructions: Follow-up Instructions: In the event that this physician does not participate in your insurance network, please consult with your insurance company to find a nearby participating provider. Patient Education Materials: A MESSAGE TO ALL PATIENTS REGARDING OPIOIDS PRESCRIPTION OPIOIDS: WHAT YOU NEED TO KNOW Prescription opioids can be used to help relieve flycciqc-sg-cduonq pain and are often prescribed following a surgery or injury, or for certain health conditions. These medications can be an important part of the treatment but also come with serious risks. It is important to work with your healthcare provider to make sure you are getting the safest, most effective care. WHAT ARE THE RISKS AND SIDE EFFECTS OF OPIOID USE? Prescription opioids carry serious risks of addiction and overdose, especially with prolonged use. An opioid overdose, often marked by slowed breathing, can cause sudden . The use of prescription opioids can have a number of side effects as well, even when taken as directed: ? Tolerance?meaning you might need to take more of the medication for the same pain relief ? Physical dependence?meaning you have symptoms of withdrawal when a medication is stopped ? Increased sensitivity to pain ? Constipation ? Nausea, vomiting, and dry mouth ? Sleepiness and dizziness ? Confusion ? Depression ? Low levels of testosterone that can result in lower sex drive, energy, and strength ? Itching and sweating RISKS ARE GREATER WITH: ? History of drug misuse, substance use disorder, or overdose ? Mental health conditions (such as depression or anxiety) ? Sleep apnea ? Older age (65 years and older) ? Avoid alcohol while taking prescription opioids. Also, unless specifically advised by your health care provider, medications to avoid include: ? Benzodiazepines (such as Xanax or Valium) ? Muscle relaxants (such as Soma or Flexeril) ? Hypnotics (such as Ambien or Lunesta) ? Other prescription opioids KNOW YOUR OPTIONS Talk to your health care provider about ways to manage your pain that don?t involve prescription opioids. Some of these options may actually work better and have fewer risks and side effects. Options may include: ? Pain relievers such as acetaminophen, ibuprofen, and naproxen ? Some medication that are also used for depression or seizures ? Physical therapy and exercise ? Cognitive behavioral therapy, a psychological, goal-directed approach, in which patients learn how to modify physical, behavioral, and emotional triggers of pain and stress. IF YOU ARE PRESCRIBED OPIOIDS FOR PAIN: ? Never take opioids in greater amounts or more often than prescribed. ? Follow up with your primary health care provider. o Work together to create a plan on how to manage your pain. o Talk about ways to help manage your pain that don?t involve prescription opioids. o Talk about any and all concerns and side effects. ? Help prevent misuse and abuse o Never sell or share prescription opioids. o Never use another person?s prescription opioids. ? Store prescription opioids in a secure place and out of reach of others (this may include visitors, children, friends, and family). ? Safely dispose of unused prescription opioids: Find your community drug take-back program or your pharmacy mail-back program, or flush them down the toilet, following guidance from the Food and Drug Administration (www.fda.gov/Drugs/Resou rcesForYou). ? Visit www.cdc.gov/drugoverdose to learn about the risks of opioids abuse and overdose. ? If you believe you may be struggling with addiction, tell your health adult care provider and ask for guidance or call SAMHSA?S National Helpline at 0-962-938-TNWB. s Source: [place] Department of Health and Human Services/Center for Disease Control & Prevention [facility] (more content not included)... Normal [facility] ED Provider Noteson 05-17-20 Cushion Maker Hand Authentication Interface Message Text Normal [facility] EMS Documentationon 05-17-20 EMS Documentation Report Please click on link to see report Normal [facility] Comment on above: Result Comment: Miss fields Attachment - attachment exceeds size limitation [id number] Can be viewed in source system ETHANOL, SERUMon 05-17-2024 Ethanol [Mass/Vol] mg/dL Normal None Detected [facility] Comment on above: Performed By: #### E CATIA, hiv1 hiv2 agab scrn, CH8 ####[facility] [id number] [place], [place], GLUCOSE, FINGERSTICK-IN OFFI CEon 05-17-2024 Glucose [Mass/Vol] 95 mg/dL Normal 80-116 [facility] Comment on above: Performed By: #### 8 2948 ####NURSING GLUCOSE [id number] [place], [place], Glucose [Mass/Vol] 162 mg/dL High 80-116 The [facility] Comment on above: Performed By: #### 8 2948 ####NURSING GLUCOSE [id number] [place], [address] H AND Ricardo 05-17-2024 Cushion Maker Hand Authentication Interface Message Text Normal [facility] HEPATIC FUNCTION PANELon Albumin [Mass/Vol] 4.5 g/dL Normal 3.5-5.7 [facility] Comment on above: Performed By: #### P HOS, CH8, HEPATIC, MG ####[facility] [id number] [place], [place], ALK 63 IU/L Normal 34-104 [facility] Comment on above: Performed By: #### P HOS, CH8, HEPATIC, MG ####[facility] [id number] [place], [place], ALT [Catalytic activity/Vol] 26 U/L Normal 7-52 [facility] Comment on above: Performed By: #### P HOS, CH8, HEPATIC, MG ####[facility] [id number] [place], [place], AST [Catalytic activity/Vol] 34 U/L Normal 13-39 The [facility] Comment on above: Performed By: #### P HOS, CH8, HEPATIC, MG ####[facility] [id number] [place], [place], Bilirubin [Mass/Vol] 0.4 mg/dL Normal 0.3-1.0 [facility] Comment on above: Performed By: #### P HOS, CH8, HEPATIC, MG ####S PATHOLOGY [id number] [place], [place], Bilirubin.direct [Mass/Vol] 0.08 mg/dL Normal 0.03-0.18 The [facility] Comment on above: Performed By: #### P HOS, CH8, HEPATIC, MG ####[facility] PATHOLOGY [id number] [place], [place], Protein [Mass/Vol] 7.0 g/dL Normal 6.0-8.3 The [facility] Comment on above: Performed By: #### P HOS, CH8, HEPATIC, MG ####[facility] PATHOLOGY [id number] [place], [place], HIGH SENSITIVITY TROPONIN Io n 05-17-2024 HS TROPONIN I 14 ng/L Normal <=15 The [facility] Comment on above: Order Comment: Nunica shannon troponin can result from acute myocardial infarction (coronary etiology) or myocardial injury (non-coronary etiology) - always consider both.Interval test times for ruling out acute coronary syndrome (ACS) are 2 hours.All results are reported in whole numbers representing ng/L. Results obtained by different labs or methods are not comparable.For ruling out ACS, lab values are always used in conjunction with clinical risk assessment (e.g., HEART score*).Interpreting initial value in ruling out ACSLess than 5 ng/L - below lower limit of quantification - essentially rules out ACS if chest pain began more than 3 hours prior to test and assessed risk is low.5 - 49 ng/L - indeterminate - consider repeat value in 2 hours depending on risk assessment.50 ng/L or greater - concern for ACS or myocardial injury.Interpreting delta values in ruling out ACS.Always compare to initial value obtained:Absolute change (rise or fall) of less than 5 ng/L - essentially rules out ACS if assessed clinical risk is low.Absolute change (rise or fall) of 5 - 19 ng/L - indeterminate - consider another repeat value in 2 hours depending on assessed clinical risk.Absolute change (rise or fall) of 20 ng/L or greater - concern for ACS or myocardial injury.Any absolute value of 50 ng/L or greater - concern for ACS or myocardial injury.*When using hsTnI to calculate the HEART score, use the 99% Upper Reference Limit of 15 ng/L as the normal limit (i.e. <=15 ng/L = 0 points, 16-45 ng/L = 1 point, >45 ng/L = 2 points).DispositionIntermediate hsTnI values DO NOT mandate admission to a cardiology or telemetry unit. They need to be interpreted within the clinical context using provider judgement. Performed By: #### H STRP ####[facility] [id number] [place] [address], HIV1 HIV2 AGAB SCRNon 2023 HIV AG-AB SCREEN Non-Reactive Normal Non-Reactive [facility] Comment on above: Order Comment: HIV I nformation: ???[place] Rev. code 3701.243(E):This information has been disclosed to you from confidential records protected from disclosure by state law. ???You shall make no further disclosure of this information without the specific, written, and informed release of the individual to whom it pertains, or as otherwise permitted by state law. ???A general authorization for the release of medical or other information is not sufficient for the purpose of the release of HIV test results or diagnoses. Result Comment: No l aboratory evidence for HIV Infection. Negative result does not rule out acute HIV infection. If acute HIV infection is suspected, recommend ordering an HIV-1 RNA quanitification test. Performed By: #### E CATIA, hiv1 hiv2 agab scrn, CH8 ####[facility] [id number] [place], [place], LACTIC ACIDon 05-17-2024 CR LACT 1.2 mmol/L Normal 0.5-1.6 [facility] Comment on above: Performed By: #### C R ICA, LACT ####[facility] [id number] [place], [place], CR LACT 0.9 mmol/L Normal 0.5-1.6 [facility] Comment on above: Performed By: #### L ACT ####[facility] [id number] [place], [place], MAGNESIUMon 05-17-2024 Magnesium [Mass/Vol] 1.9 mg/dL Normal 1.9-2.7 [facility] Comment on above: Performed By: #### P HOS, CH8, HEPATIC, MG ####[facility] [id number] [place], [place], No Panel Informationon 05-17 Shaan Cobian MD 05/17/2024 2:16 PM Peripheral Block Patient location during procedure: ICU Start time: 05/17/2024 1:45 PM Reason for block: procedure for pain Preanesthetic Checklist Completed: patient identified, IV checked, risks and benefits discussed, consent given, standard monitors applied and equipment checked, pre-op evaluation and timeout performed Staffing: Authorized by: Girish Shannon MD Performed by: Shaan Cobian MD Peripheral Block - erector spinae plane block Patient position: L lateral decubitus Prep: ChloraPrep and sterile technique and prep Laterality: right Injection technique: catheter Guidance: ultrasound guided Local infiltration: 3 mL of 1% lidocaine ULTRASOUND DOCUMENTATION: Ultrasound was used during this procedure to provide direct visualization of the nerves and surrounding vasculature, to improve block set up time, and potentially decrease complications. Surrounding anatomy and nerves were identified. Proper needle placement was confirmed as well as the deposition of local anesthetic around the nerve bundles. A copy of the image was placed in the permanent record. Needle Needle type: Tuohy Epidural needly 17g 3.5 inch. Needle localization: anatomical landmarks and ultrasound guidance Needle insertion depth: 4 cm Catheter size: 19G. Catheter at skin depth: 7 cm Assessment Injection assessment: negative aspiration for heme, no paresthesia on injection, incremental injection and local visualized surrounding nerve on ultrasound Paresthesia pain: none Heart rate change: no Slow fractionated injection: yes No block complications [facility] PART[facility] THROMBOPLASTIN TIMEo n 05-17-2024 aPTT Coag (Bld) [Time] 27 s Normal 25-37 [facility] Comment on above: Performed By: #### A PTT, PT ####[facility] [id number] [place], [place], PHOSPHORUSon 05-17-2024 Phosphate [Mass/Vol] 5.4 mg/dL High 2.5-5.0 [facility] Comment on above: Performed By: #### P HOS, CH8, HEPATIC, MG ####S PATHOLOGY [id number] [place], [place], PROTHROMBIN TIME AND INRon 0 05-17-2024 INR Coag (PPP) [Relative time] 0.86 {INR} Low 0.90-1.10 [facility] Comment on above: Performed By: #### A PTT, PT ####S PATHOLOGY [id number] [place], [place], PT Coag (PPP) [Time] 9.6 s Low 9.7-12.9 [facility] Comment on above: Performed By: #### A PTT, PT ####[facility] PATHOLOGY [id number] [place], [place], Progress Noteson 05-17-2024 Cushion Maker Hand Authentication Interface Message Text Normal [facility] Cushion Maker Hand Authentication Interface Message Text Normal [facility] Cushion Maker Hand Authentication Interface Message Text Normal [facility] Cushion Maker Hand Authentication Interface Message Text Normal [facility] Cushion Maker Hand Authentication Interface Message Text Normal [facility] Cushion Maker Hand Authentication Interface Message Text Normal [facility] Student Noteon 05-17-2024 Cushion Maker Hand Authentication Interface Message Text Normal [facility] TYPE AND SCREENon 05-17-2024 ABO and Rh group Nom (Bld) Blood group A Rh(D) positive Normal [facility] Comment on above: Performed By: #### T S ####S PATHOLOGY [id number] [place], ABO and Rh group Nom (Bld) No Previous Results Normal [facility] Comment on above: Performed By: #### T S ####[facility] [id number] [place], [place], ABSC INT Negative Normal [facility] Comment on above: Performed By: #### T S ####S PATHOLOGY [id number] [place], [place], [place] GUIDANCE NEEDLE PLACEMENT on 05-17-2024 US GUIDANCE NEEDLE PLACEMENT Normal [facility] US Guidance for placement of needle in Unspecified body regionon 05-17-2024 [facility] : Technical services were performed by the department of Anesthesia. Please see the Procedure note for interpretation. Please refer to the patient's chart for the results of the procedure and ultrasound. [facility] Narrative & Impressi on EXAMINATION: US GUIDANCE NEEDLE PLACEMENT CLINICAL HISTORY: peripheral nerve block [facility] Radiology Study observation (narrative) [facility] US Guidance for placement of needle in Unspecified body regionOrdered By: Shaan Cobian on 05-17-2024 [facility] Work Phone: XR CHEST AP OR PA 1 VIEWon 0 05-17-2024 XR CHEST AP OR PA 1 VIEW Normal [facility] XR CHEST AP OR PA 1 VIEW Normal [facility] XR CHEST AP OR PA 1 VIEW Normal [facility] XR Chest Single Viewon 05-17 XR Chest Single View Exam Date/Time: 05/16/2024 23:12 EDT Reason for Exam: post chest tube;Other (please specify) Report IMPRESSION: Interval placement of right-sided chest tube with improvement of the right pneumothorax. EXAMINATION: XR Chest Single View Clinical History: post chest tube Comparison: Earlier studies on 05/16/2024. RESULT: Limitations from single view and with portions of the lung apices excluded from the [id number]. Interval placement of right-sided chest tube, projecting near the right hilar region. With improvement in the right pneumothorax, with possible residual pneumothorax laterally. Probable trace right pleural effusion. Multiple right-sided rib fractures, grossly unchanged. Other findings as discussed on the earlier radiographs, unchanged. Ordering Provider: Ludmila Leach FINAL REPORT Dictated: 05/17/2024 10:42 am Rahul Santana MD Signed (Electronic Signature): 05/17/2024 10:42 am Signed by: Rahul Santana MD Transcribed by: [place] Technologist: ERNIE Technical Comments Radiation Dose: Ka,r in mGy = 0 DAP = 0 [facility] XR Chest Single View Exam Date/Time: 05/16/2024 22:03 EDT Reason for Exam: Chest pain Report IMPRESSION: Multiple displaced right-sided rib fractures, right pneumothorax, right pleural effusion, subcutaneous edema. Refer to the subsequent CT chest dictation. EXAMINATION: XR Chest Single View Clinical History: Chest pain Comparison: CT chest 05/16/2024. RESULT: Multiple displaced right-sided rib fractures with small to moderate right pneumothorax trace right pleural effusion, and subcutaneous emphysema. Refer to the subsequent CT chest dictation. No left pneumothorax. Normal cardiomediastinal silhouette. Aortic vascular calcifications. Severe narrowing of the right acromiohumeral interval, with [id number] contact of the humeral head and acromion, consistent with chronic rotator cuff tearing with rotator cuff arthropathy. Ordering Provider: Kenney Arias FINAL REPORT Dictated: 05/17/2024 10:38 am Rahul Santana MD. Signed (Electronic Signature): 05/17/2024 10:38 am Signed by: Rahul Santana MD Transcribed by: [place] Technologist: CHRISTIN Technical Comments Radiation Dose: Ka,r in mGy = . DAP = . Normal [facility] XR Chest Single viewon 05-17 EXAMINATION: XR CHES T AP OR PA 1 VIEW 05/17/2024 04:20 AM CLINICAL HISTORY: CT MGMT ASSOCIATED DIAGNOSIS: CT MGMT ORDERING PROVIDER: NIK KC TECHNNINOSKA NOTE: COMPARISON: XR CHEST AP OR PA 1 VIEW 05/17/2024, 12:56 AM FINDINGS: Lines, tubes, and devices: Pigtail catheter overlies the right midlung zone, unchanged in position. Lungs and pleura: Similar aeration without new focal consolidation. Persistent right pneumothorax with apical and probable basilar components (deep sulcus sign). Cardiomediastinal silhouette: The cardiomediastinal silhouette is prominent in size and likely exaggerated by AP technique. Musculoskeletal: Persistent subcutaneous emphysema. Multiple right-sided rib fractures are better assessed on recent CT. IMPRESSION: Persistent right pneumothorax with apical and probable basilar components. Stable aeration. MACRO: None RADIOLOGY Clare Choe MD - 05/17/2024 EXAMINATION: XR CHEST AP OR PA 1 VIEW 05/17/2024 04:20 AM CLINICAL HISTORY: CT MGMT ASSOCIATED DIAGNOSIS: CT MGMT ORDERING PROVIDER: NIK KC TECHNNINOSKA NOTE: COMPARISON: XR CHEST AP OR PA 1 VIEW 05/17/2024, 12:56 AM FINDINGS: Lines, tubes, and devices: Pigtail catheter overlies the right midlung zone, unchanged in position. Lungs and pleura: Similar aeration without new focal consolidation. Persistent right pneumothorax with apical and probable basilar components (deep sulcus sign). Cardiomediastinal silhouette: The cardiomediastinal silhouette is prominent in size and likely exaggerated by AP technique. Musculoskeletal: Persistent subcutaneous emphysema. Multiple right-sided rib fractures are better assessed on recent CT. IMPRESSION: Persistent right pneumothorax with apical and probable basilar components. Stable aeration. MACRO: None [facility] Study observation (narrative) [facility] XR Chest Single viewOrdered By: Clare Choe on 05-17-2024 [facility] XR FEMUR RIGHT MINIMUM 2 VIE WSon 05-17-2024 XR FEMUR RIGHT MINIMUM 2 VIEWS Normal [facility] XR HIP RIGHT W/ PELVIS MIN 2 -3 VIEWSon 05-17-2024 XR HIP RIGHT W/ PELVIS MIN 2-3 VIEWS Normal [facility] XR INLET-OUTLET + JUDETS 4 O R MORE VIEWSon 05-17-2024 XR INLET-OUTLET + JUDETS 4 OR MORE VIEWS Normal [facility] ABSCon 05-16-2024 ABSC Gel Interp Negative Normal [facility] Comment on above: Performed By: #### 1 [id number] #### [facility] [address] [place] [address] BLOOD BANKOrdered By: Asher Ramos on 05-16-2024 ABO/Rh Interp Positive Invalid Interpretation Code [facility] BB Subsection ABSC Gel Interp Negative (05/16/24 9:58 PM) Normal [facility] BB Subsection BMPon 05-16-2024 Anion gap [Moles/Vol] 15 mmol/L Normal -16 [facility] Comment on above: Performed By: #### 2 [id number] #### [facility] [address] [place] [address] Calcium [Mass/Vol] 9.5 mg/dL Normal 8.9-11.1 [facility] Comment on above: Performed By: #### 2 [id number] #### [facility] [address] [place] [address] Chloride [Moles/Vol] 92 mmol/L Low 101-111 [facility] Comment on above: Performed By: #### 2 [id number] #### [facility] [address] [place] [address] CO2 [Moles/Vol] 23 mmol/L Normal 21-[address] [facility] Comment on above: Performed By: #### 2 [id number] #### [facility] [address] [place] [address] Creatinine [Mass/Vol] 0.8 mg/dL Normal 0.5-1.3 [facility] Comment on above: Performed By: #### 2 [id number] #### [facility] [address] [place] [address] Glucose [Mass/Vol] 143 mg/dL Normal 55-199 [facility] Comment on above: Performed By: #### 2 [id number] #### [facility] [address] [place] [address] Potassium [Moles/Vol] 3.8 mmol/L Normal 3.5-5.3 [facility] Comment on above: Performed By: #### 2 [id number] #### [facility] [address] [place] [address] Sodium [Moles/Vol] 126 mmol/L Low 135-145 [facility] Comment on above: Performed By: #### 2 [id number] #### [facility] [address] [place] [address] Urea nitrogen [Mass/Vol] 20 mg/dL Normal 5-21 [facility] Comment on above: Performed By: #### 2 [id number] #### [facility] [address] [place] [address] Urea nitrogen/Creatinine [Mass ratio] 25 No Units High 10-20 [facility] Comment on above: Performed By: #### 2 [id number] #### [facility] [address] [place] [address] CBC w/ Auto Diffon 4 Basophils/100 WBC (Bld) 0.4 % Normal 0.0-2.0 [facility] Comment on above: Performed By: #### 2 [id number] #### [facility] [address] [place] [address] Basophils/Leukocyte s Auto (Bld) [Pure # fraction] 0.1 E9/L Normal 0.0-0.2 [facility] Comment on above: Performed By: #### 2 [id number] #### [facility] [address] [place] [address] Eosinophils (Bld) [#/Vol] 0.5 E9/L Normal 0.0-0.5 [facility] Comment on above: Performed By: #### 2 [id number] #### [facility] [address] [place] [address] Eosinophils/100 WBC (Bld) 3.0 % Normal 0.0-8.0 [facility] Comment on above: Performed By: #### 2 [id number] #### [facility] [address] [place] [address] Erythrocyte distribution width (RBC) [Ratio] 13.1 % Normal 10.9-14.2 [facility] Comment on above: Performed By: #### 2 [id number] #### [facility] [address] [place] [address] Hematocrit (Bld) [Volume fraction] 41.1 % Normal 37.7-49.0 [facility] Comment on above: Performed By: #### 2 [id number] #### [facility] [address] [place] [address] Hemoglobin (Bld) [Mass/Vol] 14.0 g/dL Normal 13.5-17.5 [facility] Comment on above: Performed By: #### 2 [id number] #### [facility] [address] [place] [address] Lymphocytes (Bld) [#/Vol] 1.5 E9/L Normal 1.0-4.0 [facility] Comment on above: Performed By: #### 2 [id number] #### [facility] [address] [place] [address] Lymphocytes/100 WBC (Bld) 8.6 % Low 14.0-50.0 [facility] Comment on above: Performed By: #### 2 [id number] #### [facility] [address] [place] [address] MCH (RBC) [Entitic mass] 33.7 pg Normal 27.0-34.0 [facility] Comment on above: Performed By: #### 2 [id number] #### [facility] [address] [place] [address] MCHC (RBC) [Mass/Vol] 34.2 g/dL Normal 31.4-36.0 [facility] Comment on above: Performed By: #### 2 [id number] #### [facility] [address] [place] [address] MCV (RBC) [Entitic vol] 98.5 fL Normal 80.0-100.0 [facility] Comment on above: Performed By: #### 2 [id number] #### [facility] [address] [place] [address] Monocytes (Bld) [#/Vol] 0.7 E9/L Normal 0.2-1.0 [facility] Comment on above: Performed By: #### 2 [id number] #### [facility] [address] [place] [address] Neutrophils (Bld) [#/Vol] 14.5 E9/L High 2.0-7.5 [facility] Comment on above: Performed By: #### 2 [id number] #### [facility] [address] [place] [address] Neutrophils/100 WBC (Bld) 83.7 % High 36.0-75.0 [facility] Comment on above: Performed By: #### 2 [id number] #### [facility] [address] [place] [address] Platelet 282.0 E9/L Normal 150.0-500.0 [facility] Comment on above: Performed By: #### 2 [id number] #### [facility] [address] [place] [address] Platelet mean volume (Bld) [Entitic vol] 6.3 fL Low 6.4-10.8 [facility] Comment on above: Performed By: #### 2 [id number] #### [facility] [address] [place] [address] RBC (Bld) [#/Vol] 4.2 E12/L Low 4.3-5.9 [facility] Comment on above: Performed By: #### 2 [id number] #### [facility] [address] [place] [address] WBC corrected for nucl RBC Auto (Bld) [#/Vol] 17.3 E9/L High 4.0-11.0 [facility] Comment on above: Result Comment: Felicitas pheral smear review performed. Performed By: #### 2 [id number] #### [facility] [address] [place] [address] CHEMISTRYOrdered By: SYSTEM SYSTEM on 05-16-2024 Albumin [Mass/Vol] 4.4 g/dL Normal 3.3 - 5.0 gm/dL R emisol Chem Albumin/Globulin [Mass ratio] 1.7 {ratio} Normal 1.1 - 2.2 Remisol Chem ALP [Catalytic activity/Vol] 62 [iU]/d Normal 21 - 98 Int._Unit/L Remisol Chem ALT No additional P-5'-P [Catalytic activity/Vol] 23 [iU]/d Normal 6 - 46 Int._Unit/L Remisol Chem Anion gap [Moles/Vol] 15 mmol/L Normal 6 - 16 mEq/L Remisol Chem AST [Catalytic activity/Vol] 34 [iU]/d Normal 5 - 43 Int._Unit/L Remisol Chem Bilirubin [Mass/Vol] 0.3 mg/dL Normal 0.0 - 1.1 mg/dL Remisol Chem Bilirubin.direct [Mass/Vol] 0.1 mg/dL Normal 0.0 - 0.4 mg/dL Remisol Chem Bilirubin.indirect [Mass or moles/Vol] 0.2 mg/dL Normal 0.1 - 0.9 mg/dL Remisol Chem Calcium [Mass/Vol] 9.5 mg/dL Normal 8.9 - 11. 1 mg/dL Rem[facility] Chem Chloride [Moles/Vol] 92 mmol/L Low 101 - 111 mmol/L Remisol Chem CO2 [Moles/Vol] 23 mmol/L Normal 21 - 31 mmol/L Remis ol Chem Creatinine [Mass/Vol] 0.8 mg/dL Normal 0.5 - 1.3 mg/dL Remisol Chem eGFR 88 mL/min/1.73 m2 Normal >=59mL/min /1.73 m2 Remisol Chem Ethanol Lvl 18 mg/dL High <=11mg/dL Remisol Chem Globulin (S) [Mass/Vol] 2.6 g/dL Normal 1.4 - 4.0 gm/dL Remisol Chem Glucose [Mass/Vol] 143 mg/dL Normal 55 - 199 mg/dL Re misol Chem Lactic Acid Lvl 2.5 mmol/L High 0.5 - 2.2 mmol/L Remisol Chem Lipase [Catalytic activity/Vol] 40 U/L Normal 13 - 58 unit/L Remisol Chem Potassium [Moles/Vol] 3.8 mmol/L Normal 3.5 - 5.3 mmol/L Remisol Chem Protein [Mass/Vol] 7.0 g/dL Normal 6.0 - 7.8 gm/dL R emisol Chem Sodium [Moles/Vol] 126 mmol/L Low 135 - 145 mmol/L Remisol Chem Troponin HS 5.40 pg/mL Low 15.90 - 38.40 pg/mL [facility] Chem Comment on above: Interpretive Data: T he 95% CI (Confidence Interval) PPV (Positive Predictive Value) for myocardial infarction in females is 38 pg/mL, in males 51 pg/mL. The results should be used in conjunction with clinical conditions of myocardial infarction. (Access High Sensitivity Troponin I Instructions For Use, Kenyetta Aidan, April 2018) Urea nitrogen [Mass/Vol] 20 mg/dL Normal 5 - 21 mg/dL Remisol Chem Urea nitrogen/Creatinine [Mass ratio] 25 mg/mg High 10 - 20 Rem[facility] Chem COAGULATIONOrdered By: Ofe Ramos on 05-16-2024 aPTT Coag (PPP) [Time] 29.9 s Normal 25.1 - 36.5 second(s) [facility] Auto Coag Comment on above: Interpretive Data: Erna bhatt 15 days - 4 weeks 1 - 5 months 6 - 11 months 1 - 5 years 6 - 10 years 11 - 17 years PTT Mean: 35.4 (27.6-45.6) Mean: 33.5 (24.8-40.7) Mean: 32.4 (25.1-40.7) Mean: 31.6 (24.0-39.2) Mean: 31.6 (26.9-38.7) Mean: 31.0 (24.6-38.4) Pediatric Reference ranges were obtained from a study by sue Bowers alWojciech prepared from 1437 samples obtained at 7 different centers using the same coagulation reagent and instrumentation as [facility]. Currently there are no coagulation studies available worldwide for children to 14 days, and no normal ranges. Heparin therapeutic range (represented by Anti-Factor Xa activity of 0.2 - 0.4 U/mL) corresponds to PTT of 56.6 - 109.0 sec. INR Coag (PPP) [Relative time] 0.83 {INR} Invalid Interpretation Code [facility] Auto Coag Comment on above: Interpretive Data: I NR results are specifically intended to assess patients stabilized on long-term Anticoagulation therapy suggested INR s Less Intensive Anticoagulation 2.0 3.0 Conventional Range 3.0 4.5 PT Coag (PPP) [Time] 9.3 s Low 9.4 - 12.5 second(s) [facility] Auto Coag Comment on above: Interpretive Data: 1 5 days - 4 weeks 1 - 5 months 6 -11 months 1 5 years 6 10 years 11 -17 years Mean: 11.2 (9.5 12.6) Mean: 11.0 (9.7 12.8) Mean: 11.0 (9.8 13.0) Mean: 11.3 (9.9 13.4) Mean: 11.7 (10.0 14.6) Mean: 11.8 (10.0 - 14.1) Pediatric Reference ranges were obtained from a study by javier Bowers prepared from 1437 samples obtained at 7 different centers using the same coagulation reagent and instrumentation as [facility]. Currently there are no coagulation studies available worldwide for children to 14 days, and no normal ranges. ED Note-Physicianon 05-16-20 24 ED Note-Physician ED Note-Physician Basic Information Time Seen: Ludmila Leach DO 05/16/2024 21:59 History of Present Illness HPI: Patient is a 83-year-old male who presents the ED via EMS from home for fall down the stairs. Patient states that he been going to close the basement door up a set of cement stairs when he lost his balance and fell backward down the stairs. He does think he lost consciousness during the fall. He is not on any blood thinners. He was laying at the base of the stairs for up to an hour and a half. He is having back pain as well as neck pain since the fall. He is also having some shortness of breath. EMS reports they are assisting with bag valve respirations and that he has a right anterior rib deformity. ROS: Pertinent review of systems conducted and is negative except as noted above. Physical exam: General: nontoxic appearing and in no distress HEENT: Mucous membranes moist, No webb sign, hemotympanum, or raccoon eyes. Neuro: awake and alert. GCS is 15. CN II - XII grossly intact, motor and sensation to the four extremities are grossly intact Neck: supple, trachea midline. No midline tenderness of the cervical spine. Card: Heart regular rate and rhythm no murmur Resp: Right lung sounds mild to moderately diminished compared to the left. Paradoxical movement of the right lower anterior ribs. Abd: Soft and nondistended. No tenderness with no rebound or guarding. Spine: No midline tenderness of the thoracic or lumbar spine. No palpable bony deformity. Tenderness of the right posterior lateral ribs as well as the paraspinal musculature of the right lower lumbar spine. No ecchymosis or skin changes. Pelvis: Stable to palpation. Ext: No gross deformity of the extremities. No focal tenderness to palpation. Physical Exam Vitals & Measurements T: 36.3 ?C(Tympanic) HR: 91(Monitored) RR: 31 BP: 167/94 SpO2: 93% HT: 172 cm WT: 71.5 kg BMI: 24.17 Medical Decision Making MEDICAL DECISION MAKING Number and Complexity of Problems Differential Diagnosis: [] MDM Data External documents reviewed: N/A My EKG interpretation: Noted in chart if applicable My CT interpretation: N/A My X-ray interpretation: Noted in chart if applicable My Ultrasound interpretation: N/A Decision rules/scores evaluated: N/A Discussed with: N/A Treatment and Disposition ED Course: Patient was called as a level 1 trauma from the field as they were assisting with respirations. On arrival he is saturating well without this. A stat portable x-ray was obtained and does show multiple right-sided rib fractures with associated pneumothorax. CT imaging was obtained as well as workup. Dr Mann from trauma surgery was present in the ED and placed a right-sided chest tube. After reviewing the imaging he recommended the patient be transferred by [facility] to [facility] for further trauma care. Shared decision making: As above Code status: N/A Assessment/Plan Closed head injury (S09.90XA: Unspecified injury of head, initial encounter) Hyponatremia (E87.1: Hypo-osmolality and hyponatremia) Pneumothorax (J93.9: Pneumothorax, unspecified) Rib fractures (S22.49XA: Multiple fractures of ribs, unspecified side, initial encounter for closed fracture) Orders: HYDROmorphone, 0.5 mg = 0.5 mL, Injection, IV Push, Once, Stop date 05/16/24 22:07:00 EDT, Start date 05/16/24 22:07:00 EDT XR Chest Single View Medications Administered Given [id number] [F], 0.5 mg, IV Push [id number] [F], 0.5 mg, IV Push Disposition Plan Discharge Prescription List Prescriptions No active prescription medications Follow-up No qualifying data available Problem List/Past Medical History Ongoing No qualifying data Historical No qualifying data Medications Inpatient No active inpatient medications Home No active home medications Allergies No active allergies Lab Results WBC: 17.3 E9/L High (05/16/24 21:58:00) RBC: 4.2 E12/L Low (05/16/24 21:58:00) HGB: 14 gm/dL (05/16/24 21:58:00) Hct: 41.1 % (05/16/24 21:58:00) MCV: 98.5 fL (05/16/24 21:58:00) MCH: 33.7 pg (05/16/24 21:58:00) MCHC: 34.2 gm/dL (05/16/24 21:58:00) RDW: 13.1 % (05/16/24 21:58:00) Platelet: 282 E9/L (05/16/24 21:58:00) MPV: 6.3 fL Low (05/16/24 21:58:00) Neutro Auto: 83.7 % High (05/16/24 21:58:00) Lymph Auto: 8.6 % Low (05/16/24 21:58:00) Imperial Auto: 4.3 % (05/16/24 21:58:00) Eos Auto: 3 % (05/16/24 21:58:00) Basophil Auto: 0.4 % (05/16/24 21:58:00) Neutro Absolute: 14.5 E9/L High (05/16/24 21:58:00) Lymph Absolute: 1.5 E9/L (05/16/24 21:58:00) Imperial Absolute: 0.7 E9/L (05/16/24 21:58:00) Eos Absolute: 0.5 E9/L (05/16/24 21:58:00) Basophil Absolute: 0.1 E9/L (05/16/24 21:58:00) PT: 9.3 second(s) Low (05/16/24 21:58:00) INR: 0.83 (05/16/24 21:58:00) PTT: 29.9 second(s) (05/16/24 21:58:00) Glucose Lvl: 143 mg/dL (05/16/24 21:58:00) BUN: 20 mg/dL (05/16/24 21:58:00) Creatinine: 0.8 mg/dL (05/16/24 21:58:00) eGFR: 88 mL/mi (more content not included)... Normal [facility] Comment on above: Result Comment: Elec tronically Signed By: Ludmila Leach DO\.br\Date and Time Signed: 05/16/24 23:21 EDT Ethanolon 05-16-2024 Ethanol Lvl 18 mg/dL High <=11 [facility] Comment on above: Performed By: #### 2 [id number] #### [facility] [address] [place] [address] HEMATOLOGYOrdered By: SYSTEM SYSTEM on 05-16-2024 Basophils/100 WBC (Bld) 0.4 % Normal 0.0 - 2.0 % Remisol Heme Basophils/Leukocyte s Auto (Bld) [Pure # fraction] 0.1 E9/L Normal 0.0 - 0.2 E9/L Remisol Heme Eosinophils (Bld) [#/Vol] 0.5 E9/L Normal 0.0 - 0.5 E9/L Remisol Heme Eosinophils/100 WBC (Bld) 3.0 % Normal 0.0 - 8.0 % Remisol Heme Erythrocyte distribution width (RBC) [Ratio] 13.1 % Normal 10.9 - 14.2 % Remisol Heme Hematocrit (Bld) [Volume fraction] 41.1 % Normal 37.7 - 49.0 % Remisol Heme Hemoglobin (Bld) [Mass/Vol] 14.0 g/dL Normal 13.5 - 17.5 gm/dL Remisol Heme Lymphocytes (Bld) [#/Vol] 1.5 E9/L Normal 1.0 - 4.0 E9/L Remisol Heme Lymphocytes/100 WBC (Bld) 8.6 % Low 14.0 - 50.0 % Remisol Heme MCH (RBC) [Entitic mass] 33.7 pg Normal 27.0 - 34.0 pg Remisol Heme MCHC (RBC) [Mass/Vol] 34.2 g/dL Normal 31.4 - 36.0 gm/dL Remisol Heme MCV (RBC) [Entitic vol] 98.5 fL Normal 80.0 - 100.0 fL Remisol Heme Monocytes (Bld) [#/Vol] 0.7 E9/L Normal 0.2 - 1.0 E9/L Remisol Heme Monocytes/100 WBC (Bld) 4.3 % Normal 4.0 - 14.0 % Remisol Heme Neutrophils (Bld) [#/Vol] 14.5 E9/L High 2.0 - 7.5 E9/L Remisol Heme Neutrophils/100 WBC (Bld) 83.7 % High 36.0 - 75.0 % Remisol Heme Platelet 282.0 E9/L Normal 150.0 - 500.0 E9/L Remisol Heme Platelet mean volume (Bld) [Entitic vol] 6.3 fL Low 6.4 - 10.8 fL Remisol Heme RBC (Bld) [#/Vol] 4.2 E12/L Low 4.3 - 5.9 E12/L Re misol Heme WBC corrected for nucl RBC Auto (Bld) [#/Vol] 17.3 E9/L High 4.0 - 11.0 E9/L Remisol Heme Comment on above: Result Comment: Felicitas pheral smear review performed. Hep Func Panelon 05-16-2024 Albumin [Mass/Vol] 4.4 g/dL Normal 3.3-5.0 [facility] Comment on above: Performed By: #### 2 [id number] #### [facility] [address] [place] [address] Albumin/Globulin (S) [Mass conc ratio] 1.7 Normal 1.1-2.2 [facility] Comment on above: Performed By: #### 2 [id number] #### [facility] [address] [place] [address] ALP [Catalytic activity/Vol] 62 Int._Unit/L Normal 21-98 [facility] Comment on above: Performed By: #### 2 [id number] #### [facility] [address] [place] [address] ALT No additional P-5'-P [Catalytic activity/Vol] 23 Int._Unit/L Normal 6-46 [facility] Comment on above: Performed By: #### 2 [id number] #### [facility] [address] [place] [address] AST [Catalytic activity/Vol] 34 Int._Unit/L Normal 5-43 [facility] Comment on above: Performed By: #### 2 [id number] #### [facility] [address] [place] [address] Bilirubin [Mass/Vol] 0.3 mg/dL Normal 0.0-1.1 [facility] Comment on above: Performed By: #### 2 [id number] #### [facility] [address] [place] [address] Bilirubin.direct [Mass/Vol] 0.1 mg/dL Normal 0.0-0.4 [facility] Comment on above: Performed By: #### 2 [id number] #### [facility] [address] [place] [address] Bilirubin.indirect [Mass or moles/Vol] 0.2 mg/dL Normal 0.1-0.9 [facility] Comment on above: Performed By: #### 2 [id number] #### [facility] [address] [place] [address] Globulin (S) [Mass/Vol] 2.6 g/dL Normal 1.4-4.0 [facility] Comment on above: Performed By: #### 2 [id number] #### [facility] [address] [place] [address] Protein [Mass/Vol] 7.0 g/dL Normal 6.0-7.8 [facility] Comment on above: Performed By: #### 2 [id number] #### [facility] [address] [place] [address] Lactic Acidon 05-16-2024 Lactic Acid Lvl 2.5 mmol/L High 0.5-2.[address] [facility] Comment on above: Performed By: #### 2 [id number] #### [facility] [address] [place] [address] Lipase Levelon 05-16-2024 Lipase [Catalytic activity/Vol] 40 U/L Normal 13-58 [facility] Comment on above: Performed By: #### 2 [id number] #### [facility] [address] [place] [address] PT & PTTon 05-16-2024 aPTT Coag (PPP) [Time] 29.9 second(s) Normal 25.1-36.5 [facility] Comment on above: Result Comment: Para meter 15 days - 4 weeks 1 - 5 months 6 - 11 months 1 - 5 years 6 - 10 years 11 - 17 years PTT Mean: 35.4 (27.6-45.6) Mean: 33.5 (24.8-40.7) Mean: 32.4 (25.1-40.7) Mean: 31.6 (24.0-39.2) Mean: 31.6 (26.9-38.7) Mean: 31.0 (24.6-38.4) Pediatric Reference ranges were obtained from a study by luly Bowers. prepared from 1437 samples obtained at 7 different centers using the same coagulation reagent and instrumentation as [facility]. Currently there are no coagulation studies available worldwide for children to 14 days, and no normal ranges. Heparin therapeutic range (represented by Anti-Factor Xa activity of 0.2 - 0.4 U/mL) corresponds to PTT of 56.6 - 109.0 sec. Performed By: #### 1 [id number] #### [facility] [address] [place] [address] INR Coag (PPP) [Relative time] 0.83 {INR} Invalid Interpretation Code [facility] Comment on above: Result Comment: INR results are specifically intended to assess patients stabilized on long-term Anticoagulation therapy suggested INR?s ?Less Intensive Anticoagulation? 2.0 ? 3.0 Conventional Range 3.0 ? 4.5 Performed By: #### 1 [id number] #### [facility] [address] [place] [address] PT Coag (PPP) [Time] 9.3 second(s) Low 9.4-12.5 [facility] Comment on above: Result Comment: 15 d ays - 4 weeks 1 - 5 months 6 -11 months 1 ? 5 years 6 ? 10 years 11 -17 years Mean: 11.2 (9.5 ? 12.6) Mean: 11.0 (9.7 ? 12.8) Mean: 11.0 (9.8 ? 13.0) Mean: 11.3 (9.9 ? 13.4) Mean: 11.7 (10.0 ? 14.6) Mean: 11.8 (10.0 - 14.1) Pediatric Reference ranges were obtained from a study by javier Bowers prepared from 1437 samples obtained at 7 different centers using the same coagulation reagent and instrumentation as [facility]. Currently there are no coagulation studies available worldwide for children to 14 days, and no normal ranges. Performed By: #### 1 [id number] #### [facility] [address] [place] [address] Troponinon 05-16-2024 Troponin HS 5.40 pg/mL Low 15.90-38.40 [facility] Comment on above: Result Comment: The 95% CI (Confidence Interval) PPV (Positive Predictive Value) for myocardial infarction in females is 38 pg/mL, in males 51 pg/mL. The results should be used in conjunction with clinical conditions of myocardial infarction. (Access High Sensitivity Troponin I Instructions For Use, Kenyetta Zoom, April 2018) Performed By: #### 2 [id number] #### [facility] [address] [place] [address] eGFRon 05-16-2024 eGFR 88 mL/min/1.73 m2 Normal >=59 [facility] Comment on above: Order Comment: Order added by Discern Expert. Performed By: #### 1 [id number] #### [facility] [address] [place] [address] XR CHEST 2 Von 10-22-2022 XR CHEST 2 V EXAM: XR CHEST 2 V HISTORY: Atherosclerosis of coronary artery without angina pectoris COMPARISON: 02/08/2020 TECHNIQUE: Upright PA and lateral chest x-ray FINDINGS: The heart is not enlarged and the vasculature is not distended. No acute infiltrate, effusion or pneumothorax is identified. A small nipple shadows are faintly seen. The osseous structures are grossly intact. IMPRESSION: No acute infiltrate or evidence of cardiac decompensation. The overall appearance of the chest is unchanged. Electronically authenticated by: YINA PAINTER Date: 2022-10-22 16:47 Normal [facility] CBC W MANUAL DIFFon 02-14-20 22 ATYPICAL LYMPH # Normal [facility] Comment on above: Performed By: #### C GEORGE #### [facility] [address] [place] [address] Dr. Aixa Arguello ATYPICAL LYMPH % Normal [facility] Comment on above: Performed By: #### C GEORGE #### [facility] [address] [address] [address] Aixa Arguello BAND # Normal 0.0-0.3 [facility] Comment on above: Performed By: #### C BCTILA #### [facility] [address] [address] [address] Aixa Arguello BAND % Normal 0-5 [facility] Comment on above: Performed By: #### C BCTILA #### [facility] [address] [address] [address] Aixa Arguello BASOM # 0.00 103/ul Normal 0.00-0.10 [facility] Comment on above: Performed By: #### C BCTILA #### [facility] [address] [address] [address] Aixa Arguello BASOM % 0.0 % Critically low 0.2-2.0 [facility] Comment on above: Performed By: #### C BCTILA #### [facility] [address] [place] [address] Dr. Aixa Arguello BLAST # Normal [facility] Comment on above: Performed By: #### C GEORGE #### [facility] [address] [place] [address] Dr. Aixa Arguello BLAST % Normal [facility] Comment on above: Performed By: #### C GEORGE #### [facility] [address] [place] [address] Dr. Aixa Arguello CORRECTED WBC Normal 4.0-11.0 [facility] Comment on above: Performed By: #### C GEORGE #### [facility] [address] [place] [address] Dr. Aixa Arguello EOS # 0.77 103/ul Critically high 0.00-0.70 [facility] Comment on above: Performed By: #### C BCTILA #### [facility] [address] [address] [address] Aixa Arguello EOS% 12.0 % Critically high 0.9-7.0 [facility] Comment on above: Performed By: #### C BCTILA #### [facility] [address] [place] [address] Dr. Aixa Arguello HCT 53.2 % Normal 42.0-54.0 [facility] Comment on above: Performed By: #### C GEORGE #### [facility] [address] [address] [address] Aixa Arguello HGB 17.0 g/dl Normal 14.0-18.0 [facility] Comment on above: Performed By: #### C GEORGE #### [facility] [address] [address] [address] Aixa Arguello LYMPHM # 0.70 103/ul Critically low 1.20-3.80 [facility] Comment on above: Performed By: #### C GEORGE #### [facility] [address] [address] [address] Aixa Arguello LYMPHM% 11.0 % Critically low 20.5-60.0 [facility] Comment on above: Performed By: #### C GEORGE #### [facility] [address] [place] [address] Dr. Aixa Arguello MACROCYTOSIS SLIGHT Normal [facility] Comment on above: Performed By: #### C GEORGE #### [facility] [address] [address] [address] Aixa Arguello MCH 32.0 pg Normal 25.9-34.0 [facility] Comment on above: Performed By: #### C GEORGE #### [facility] [address] [address] [address] Aixa Arguello MCHC 32.0 g/dl Normal 29.9-35.2 [facility] Comment on above: Performed By: #### C GEORGE #### [facility] [address] [place] [address] Dr. Aixa Arguello MCV 100.0 fL Critically high 80.0-94.0 [facility] Comment on above: Performed By: #### C GEORGE #### [facility] [address] [place] [address] Dr. Aixa Arguello METAMYELOCYTE # Normal [facility] Comment on above: Performed By: #### C GEORGE #### [facility] [address] [place] [address] Dr. Aixa Arguello METAMYELOCYTE % Normal [facility] Comment on above: Performed By: #### C BCTILA #### [facility] [address] [address] [address] Aixa Arguello MONOM# 0.51 103/ul Normal 0.30-0.80 [facility] Comment on above: Performed By: #### C GEORGE #### [facility] [address] [address] [address] Aixa Arguello MONOM% 8.0 % Normal 1.7-12.0 [facility] Comment on above: Performed By: #### C GEORGE #### [facility] [address] [address] [address] Aixa Arguello MPV 8.4 fL Critically low 9.5-13.5 [facility] Comment on above: Performed By: #### C GEORGE #### [facility] [address] [address] [address] Aixa Arguello MYELOCYTE # Normal [facility] Comment on above: Performed By: #### C GEORGE #### [facility] [address] [address] [address] Aixa Arguello MYELOCYTE % Normal [facility] Comment on above: Performed By: #### C GEORGE #### [facility] [address] [address] [address] Aixa Arguello NRBC Normal [facility] Comment on above: Performed By: #### C GEORGE #### [facility] [address] [address] [address] Aixa Arguello PLT 195 103/ul Normal 150-450 [facility] Comment on above: Performed By: #### C GEORGE #### [facility] [address] [address] [address] Aixa Arguello RBC 5.32 106/ul Normal 4.70-6.10 [facility] Comment on above: Performed By: #### C GEORGE #### [facility] [address] [place] [address] Dr. Aixa Arguello RDW 13.7 % Normal 11.0-15.0 [facility] Comment on above: Performed By: #### C GEORGE #### [facility] [address] [address] [address] Aixa Arguello SEG # 4.42 103/ul Normal 1.40-6.50 [facility] Comment on above: Performed By: #### C GEORGE #### [facility] [address] [address] [address] Aixa Arguello SEG % 69.0 % Normal 43.0-75.0 [facility] Comment on above: Performed By: #### C GEORGE #### [facility] [address] [address] [address] Aixa Arguello WBC 6.4 103/ul Normal 4.0-11.0 [facility] Comment on above: Performed By: #### C GEORGE #### [facility] [address] [place] [address] Dr. Aixa Arguello LIPID PROFILEon 02-13-2022 CHOL-HDL RATIO NORM SEE BELOW Normal [facility] Comment on above: Result Comment: 3.3 - 4.4 LOW RISK 4.4 - 7.1 AVERAGE RISK 7.1 - 11.0 MODERATE RISK >11.0 HIGH RISK Performed By: #### L IPID, TSH, BMP #### [facility] [address] [place] [address] Dr. Aixa Arguello Cholesterol [Mass/Vol] 158 mg/dL Normal <=200 [facility] Comment on above: Performed By: #### L IPID, TSH, BMP #### [facility] [address] [place] [address] Dr. Aixa Arguello Cholesterol in HDL [Mass/Vol] 79 mg/dL Critically high 40-60 [facility] Comment on above: Performed By: #### L IPID, TSH, BMP #### [facility] [address] [place] [address] Dr. Aixa Arguello Cholesterol in LDL [Mass/Vol] 53.0 mg/dL Normal [facility] Comment on above: Performed By: #### L IPID, TSH, BMP #### [facility] [address] [place] [address] Dr. Aixa Arguello Cholesterol.total/C holesterol in HDL [Mass ratio] 2.0 {ratio} Normal [facility] Comment on above: Performed By: #### L IPID, TSH, BMP #### [facility] [address] [place] [address] Dr. Aixa Arguello HDL NORMAL > or = 60 mg/dl - LO W CARDIOVASCULAR RISK <40 mg/dl - HIGH CARDIOVASCULAR RISK Normal [facility] Comment on above: Performed By: #### L IPID, TSH, BMP #### [facility] [address] [address] [address] Aixa Arguello LDL CALC NORMAL SEE BELOW Normal [facility] Comment on above: Result Comment: <100 mg/dl OPTIMAL 100 - 129 mg/dl NEAR OR ABOVE OPTIMAL 130 - 159 mg/dl BORDERLINE HIGH 160 - 189 mg/dl HIGH >190 mg/dl VERY HIGH Performed By: #### L IPID, TSH, BMP #### [facility] [address] [place] [address] Dr. Aixa Arguello Triglyceride [Mass/Vol] 130 mg/dL Normal <=150 [facility] Comment on above: Performed By: #### L IPID, TSH, BMP #### [facility] [address] [place] [address] Dr. Aixa Arguello VLDL CALC 26.0 mg/dL Normal [facility] Comment on above: Performed By: #### L IPID, TSH, BMP #### [facility] [address] [place] [address] Dr. Aixa Arguello PROF CHEM 8 (BAS METB)on Anion gap [Moles/Vol] 9.0 mmol/L Normal [facility] Comment on above: Performed By: #### L IPID, TSH, BMP #### [facility] [address] [place] [address] Dr. Aixa Arguello Calcium [Mass/Vol] 9.7 mg/dL Normal 8.5-10.1 [facility] Comment on above: Performed By: #### L IPID, TSH, BMP #### [facility] [address] [place] [address] Dr. Aixa Arguello Chloride [Moles/Vol] 94 mmol/L Critically low 98-107 [facility] Comment on above: Performed By: #### L IPID, TSH, BMP #### [facility] [address] [address] [address] Aixa Arguello CO2 [Moles/Vol] 34.9 mmol/L Critically high 21.0-32.0 [facility] Comment on above: Performed By: #### L IPID, TSH, BMP #### [facility] [address] [address] [address] Aixa Arguello Creatinine [Mass/Vol] 1.11 mg/dL Normal 0.70-1.30 [facility] Comment on above: Performed By: #### L IPID, TSH, BMP #### [facility] [address] [place] [address] Dr. Aixa Arguello EGFR-AF ANDORRAN >60 Normal >=60 [facility] Comment on above: Performed By: #### L IPID, TSH, BMP #### [facility] [address] [place] [address] Dr. Aixa Arguello EGFR-NON AF ANDORRAN >60 Normal >=60 [facility] Comment on above: Performed By: #### L IPID, TSH, BMP #### [facility] [address] [place] [address] Dr. Aixa Arguello Glucose [Mass/Vol] 86 mg/dL Normal 74-106 [facility] Comment on above: Performed By: #### L IPID, TSH, BMP #### [facility] [address] [place] [address] Dr. Aixa Arguello Potassium [Moles/Vol] 4.9 mmol/L Normal 3.5-5.1 [facility] Comment on above: Performed By: #### L IPID, TSH, BMP #### [facility] [address] [place] [address] Dr. Aixa Arguello Sodium [Moles/Vol] 133 mmol/L Critically low 136-145 [facility] Comment on above: Performed By: #### L IPID, TSH, BMP #### [facility] [address] [place], [place] [address] Dr. Aixa Arguello Urea nitrogen [Mass/Vol] 15.0 mg/dL Normal 7.0-18.0 [facility] Comment on above: Performed By: #### L IPID, TSH, BMP #### [facility] [address] [place], [place] [address] Dr. Aixa Arguello Urea nitrogen/Creatinine [Mass ratio] 13.5 mg/mg Normal [facility] Comment on above: Performed By: #### L IPID, TSH, BMP #### [facility] [address] [place], [place] [address] Dr. Aixa Arguello TSHon 02-13-2022 TSH 1.357 uIU/mL Normal 0.358-3.740 [facility] Comment on above: Performed By: #### L IPID, TSH, BMP #### [facility] [address] [address] [address] Aixa Arguello Vital Signs Date Time Vital Sign Value Performing Clinician Facility 05-16-2024 23:30-0400 Diastolic blood pressure 77 mm[Hg] Ludmila [facility] 05-16-2024 23:30-0400 Heart rate 91 /min [facility] 05-16-2024 23:30-0400 Mean blood pressure 93 mm[Hg] Ludmila [facility] 05-16-2024 23:30-0400 Respiratory rate 19 /min Ludmila Hay[facility] 05-16-2024 23:30-0400 SaO2% (BldA) [Mass fraction] 94 % Ludmila Hay[facility] 05-16-2024 23:30-0400 Systolic blood pressure 124 mm[Hg] Ludmila Hay[facility] 05-16-2024 23:15-0400 Diastolic blood pressure 37 mm[Hg] Ludmila Haylee [facility] 05-16-2024 23:15-0400 Heart rate 89 /min Ludmila Haylee [facility] 05-16-2024 23:15-0400 Mean blood pressure 70 mm[Hg] Ludmila Haylee [facility] 05-16-2024 23:15-0400 Respiratory rate 27 /min Ludmila Haylee [facility] 05-16-2024 23:15-0400 SaO2% (BldA) [Mass fraction] 92 % Ludmila Hay[facility] 05-16-2024 23:15-0400 Systolic blood pressure 136 mm[Hg] Ludmila Haylee [facility] 05-16-2024 23:00-0400 Diastolic blood pressure 87 mm[Hg] Ludmila Haylee [facility] 05-16-2024 23:00-0400 Heart rate 92 /min Ludmila Haylee [facility] 05-16-2024 23:00-0400 Mean blood pressure 106 mm[Hg] Ludmila Haylee [facility] 05-16-2024 23:00-0400 Respiratory rate 21 /min Ludmila Haylee [facility] 05-16-2024 23:00-0400 Systolic blood pressure 144 mm[Hg] Ludmila Haylee [facility] 05-16-2024 22:15-0400 Heart rate 85 /min Ludmila Haylee [facility] 05-16-2024 22:15-0400 Respiratory rate 22 /min Ludmila Haylee [facility] 05-16-2024 22:05-0400 Body temperature 97.34 [degF] Ludmila Haylee [facility] 05-16-2024 22:05-0400 Heart rate 87 /min Ludmila Haylee [facility] 05-16-2024 22:05-0400 Respiratory rate 24 /min Ludmila Haylee [facility] 05-16-2024 21:50-0400 Body temperature 96.8 [degF] Ludmila Haylee [facility] 05-16-2024 21:50-0400 Heart rate 93 /min Ludmila Haylee [facility] 12-12-2023 13:56-0400 Body height 172.72 cm [facility] 12-12-2023 13:56-0400 Body mass index (BMI) [Ratio] 25 kg/m2 [facility] 12-12-2023 13:56-0400 Body weight 74.5 kg [facility] 12-12-2023 13:56-0400 Diastolic blood pressure 97 mm[Hg] [facility] 12-12-2023 13:56-0400 Heart rate 82 /min [facility] 12-12-2023 13:56-0400 Respiratory rate 20 /min [facility] 12-12-2023 13:56-0400 Systolic blood pressure 166 mm[Hg] [facility] 06-11-2023 15:30-0400 Body height 172.72 cm Dnoy Ball Other [facility] Other 06-11-2023 15:30-0400 Body mass index (BMI) [Ratio] 24.33 kg/m2 Dony Ball Other [facility] Other 06-11-2023 15:30-0400 Body weight 72.58 kg Dony Ball Other [employer] Other 06-11-2023 15:30-0400 Diastolic blood pressure 80 mm[Hg] Dony Ball Other [employer] Other 06-11-2023 15:30-0400 Respiratory rate 20 /min Dony Ball Other [employer] Other 06-11-2023 15:30-0400 Systolic blood pressure 135 mm[Hg] Dony Ball Other [employer] Other 06-11-2023 14:30-0400 Body height 172.72 cm Dony Ball Other [employer] Other 06-11-2023 14:30-0400 Body mass index (BMI) [Ratio] 24.33 kg/m2 Dony Ball Other [employer] Other 06-11-2023 14:30-0400 Body weight 72.58 kg Dony Ball Other [employer] Other 06-11-2023 14:30-0400 Diastolic blood pressure 80 mm[Hg] Dony Ball Other [employer] Other 06-11-2023 14:30-0400 Respiratory rate 20 /min Dony Ball Other [employer] Other 06-11-2023 14:30-0400 Systolic blood pressure 135 mm[Hg] Dony Ball Other [employer] Other 03-11-2023 13:45-0400 Body height 172.72 cm Dony Ball Other [employer] Other 03-11-2023 13:45-0400 Body mass index (BMI) [Ratio] 23.08 kg/m2 Dony Ball Other [employer] Other 03-11-2023 13:45-0400 Body weight 68.86 kg Dony Ball Other [employer] Other 03-11-2023 13:45-0400 Diastolic blood pressure 79 mm[Hg] Dony Ball Other [employer] Other 03-11-2023 13:45-0400 Respiratory rate 20 /min Dony Ball Other [employer] Other 03-11-2023 13:45-0400 SaO2% (BldA) [Mass fraction] 94 % Dony Ball Other [employer] Other 03-11-2023 13:45-0400 Systolic blood pressure 148 mm[Hg] Dony Ball Other [employer] Other 12-09-2022 16:30-0400 Body height 172.72 cm Dony Ball Other [employer] Other 12-09-2022 16:30-0400 Body mass index (BMI) [Ratio] 24.69 kg/m2 Dony Ball Other [employer] Other 12-09-2022 16:30-0400 Body weight 73.66 kg Dony Ball Other [employer] Other 12-09-2022 16:30-0400 Diastolic blood pressure 84 mm[Hg] Dony Ball Other [employer] Other 12-09-2022 16:30-0400 Respiratory rate 20 /min Dony Ball Other [employer] Other 12-09-2022 16:30-0400 Systolic blood pressure 149 mm[Hg] Dony Ball Other [employer] Other 09-10-2022 16:00-0500 Body height 172.72 cm Dony Ball Other [employer] Other 09-10-2022 16:00-0500 Body mass index (BMI) [Ratio] 24.6 kg/m2 Dony Ball Other [employer] Other 09-10-2022 16:00-0500 Body weight 73.39 kg Dony Ball Other [employer] Other 09-10-2022 16:00-0500 Diastolic blood pressure 70 mm[Hg] Dony Ball Other [employer] Other 09-10-2022 16:00-0500 Respiratory rate 20 /min Dony Ball Other [employer] Other 09-10-2022 16:00-0500 SaO2% (BldA) [Mass fraction] 90 % Dony Eventifier Other [employer] Other 09-10-2022 16:00-0500 Systolic blood pressure 102 mm[Hg] Dony Ball Other [employer] Other Encounters Encounter Date Encounter Type Care Provider Facility Start: 08-18-2024 End: 08-18-2024 ambulatory Leatha Spring Facility:[facility] Start: 08-18-2024 End: 08-18-2024 Patient encounter procedure Leatha Spring [facility] Start: 06-10-2024 End: 06-10-2024 Evaluation and management of inpatient Girish aBca MD Work Phone: [facility] Start: 06-09-2024 End: 06-09-2024 Evaluation and management of inpatient Girish Baca MD Work Phone: [facility] Comment on above: Arrived Start: 06-08-2024 End: 06-08-2024 Evaluation and management of inpatient Girish Baca MD Work Phone: [facility] Comment on above: Arrived Start: 06-08-2024 End: 06-08-2024 Evaluation and management of inpatient [facility] Facility:[facility] Start: 06-06-2024 End: 06-06-2024 Evaluation and management of inpatient Girish Baca MD Work Phone: [facility] Comment on above: Arrived Start: 06-06-2024 End: 06-06-2024 Evaluation and management of inpatient Girish Baca MD Work Phone: [facility] CT Comment on above: Arrived Start: 06-05-2024 End: 06-05-2024 Evaluation and management of inpatient Girish Baca MD Work Phone: [facility] Comment on above: Arrived Start: 06-04-2024 End: 06-04-2024 Evaluation and management of inpatient Girish Baca MD Work Phone: [facility] Comment on above: Arrived Start: 06-03-2024 End: 06-03-2024 Evaluation and management of inpatient Girish Baca MD Work Phone: [facility] Start: 06-02-2024 End: 06-02-2024 Evaluation and management of inpatient Girish Baca MD Work Phone: [facility] Comment on above: Arrived Start: 06-01-2024 End: 06-01-2024 Evaluation and management of inpatient Girish Baca MD Work Phone: [facility] CT Comment on above: Arrived Start: 06-01-2024 End: 06-01-2024 Evaluation and management of inpatient Girish Baca MD Work Phone: [facility] Comment on above: Arrived Start: 05-31-2024 End: 05-31-2024 Evaluation and management of inpatient Girish Baca MD Work Phone: [facility] Comment on above: Arrived Start: 05-30-2024 End: 05-30-2024 Evaluation and management of inpatient Girish Baca MD Work Phone: [facility] CT Comment on above: Arrived Start: 05-30-2024 End: 05-30-2024 Evaluation and management of inpatient Girish Baca MD Work Phone: [facility] Comment on above: Arrived Start: 05-29-2024 End: 05-29-2024 Evaluation and management of inpatient Girish Baca MD Work Phone: [facility] CT Comment on above: Arrived Start: 05-29-2024 End: 05-29-2024 Evaluation and management of inpatient Girish Baca MD Work Phone: [facility] Comment on above: Arrived Start: 05-28-2024 End: 05-28-2024 Evaluation and management of inpatient Girish Baca MD Work Phone: [facility] Comment on above: Arrived Start: 05-27-2024 End: 05-27-2024 Evaluation and management of inpatient Girish Baca MD Work Phone: [facility] Start: 05-26-2024 End: 05-26-2024 Evaluation and management of inpatient Girish Baca MD Work Phone: [facility] Comment on above: Arrived Start: 2024 End: 2024 Evaluation and management of inpatient Girish Baca MD Work Phone: [facility] Comment on above: Arrived Start: 05-24-2024 Evaluation and management of inpatient LUDMILA COREASNER Facility:[facility] Start: 05-24-2024 End: 05-24-2024 Evaluation and management of inpatient Girish Baca MD Work Phone: [facility] Comment on above: Arrived Start: 05-23-2024 End: 05-23-2024 Evaluation and management of inpatient Girish Baca MD Work Phone: [facility] Comment on above: Arrived Start: 05-22-2024 End: 05-22-2024 Evaluation and management of inpatient Girish Baca MD Work Phone: [facility] Comment on above: Arrived Start: 05-21-2024 End: 05-21-2024 Evaluation and management of inpatient Girish Baca MD Work Phone: [facility] Comment on above: Arrived Start: 05-20-2024 End: 05-20-2024 Evaluation and management of inpatient Girish Baca MD Work Phone: [facility] Start: 05-19-2024 End: 05-19-2024 Evaluation and management of inpatient Girish Baca MD Work Phone: [facility] CT Comment on above: Arrived Start: 05-19-2024 End: 05-19-2024 Evaluation and management of inpatient Girish Baca MD Work Phone: [facility] Comment on above: Arrived Start: 05-18-2024 End: 05-18-2024 Evaluation and management of inpatient Girish Baca MD Work Phone: [facility] Comment on above: Arrived Start: 05-17-2024 End: 05-17-2024 E.D. Visit Jane ZAMUDIO, [facility] Social Work Comment on above: Trauma/complex Medic al Situation Start: 05-17-2024 End: 05-17-2024 Evaluation and management of inpatient Girish Baca MD Work Phone: [facility] Comment on above: Arrived Start: 05-17-2024 End: 05-17-2024 Evaluation and management of inpatient [facility] Start: 05-17-2024 End: 06-10-2024 Evaluation and management of inpatient Girish Baca MD Work Phone: [facility] CT Comment on above: Arrived Start: 05-17-2024 End: 05-17-2024 ambulatory UNKNOWN PROVIDER Facility:[facility] Start: 05-17-2024 Evaluation and management of inpatient LUDMILA LEACH Facility:[facility] Start: 05-16-2024 End: 05-16-2024 Emergency department patient visit Ludmila Leach Facility:[facility] Start: 12-12-2023 End: 12-12-2023 ambulatory [facility] Work Phone: Start: 12-12-2023 End: 12-12-2023 Patient encounter procedure [facility] Work Phone: Start: 09-18-2023 End: 09-18-2023 ambulatory Dony Moore Other [employer] Other Start: 09-18-2023 Telephone encounter Dony Ball [facility] Start: 09-08-2023 End: 09-08-2023 ambulatory Dony Ball Other [employer] Other Start: 09-08-2023 Telephone encounter Dony Ball [facility] Start: 06-11-2023 End: 06-11-2023 ambulatory Dony Ball Other [employer] Other Start: 06-11-2023 Patient encounter procedure Dony Teresa [facility] Start: 06-11-2023 Telephone encounter Dony Ball [facility] Start: 06-04-2023 End: 06-04-2023 ambulatory Dony Ball Other [employer] Other Start: 06-04-2023 Telephone encounter Dony Ball [facility] Start: 06-03-2023 End: 06-03-2023 ambulatory Dony Ball Other [employer] Other Start: 06-03-2023 Telephone encounter Dony Ball [facility] Start: 05-29-2023 End: 05-29-2023 ambulatory Dony Ball Other [employer] Other Start: 05-29-2023 Telephone encounter Dony CARRILLO [facility] Start: 03-11-2023 End: 03-11-2023 ambulatory Dony Moore Other [employer] Other Start: 03-11-2023 Transitional care pillo leung srvc 7 day discharge Dony Moore [facility] Start: 03-06-2023 End: 03-06-2023 ambulatory Dony Moore Other [employer] Other Start: 03-06-2023 Telephone encounter Dony CARRILLO [facility] Start: 12-09-2022 End: 12-09-2022 ambulatory Dony Moore Other [employer] Other Start: 12-09-2022 Office outpatient vi sit 25 minutes Dony Moore [facility] Start: 10-22-2022 End: 10-23-[address] DONY MOORE Facility:[facility] Start: 09-10-2022 End: 09-10-2022 ambulatory Dony Moore Other [employer] Other Start: 09-10-2022 Office outpatient vi sit 25 minutes Dony Moore [facility] Start: 02-13-2022 End: 02-14-[address] DONY MOORE Facility:[facility] Start: 02-12-2022 Adult health examination Danny Moore Other [employer] Other Procedures Date Procedure Procedure Detail Performing Clinician Start: 06-10-2024 Radiologic exam ches t single view Malik Ramos MD Work Phone: Start: 06-09-2024 Radiologic exam ches t single view Jose M Torres DO Work Phone: Start: 06-08-2024 Radiologic exam ches t single view Malik Ramos MD Work Phone: Start: 06-06-2024 Us chest real time w /image documentation Valery Reyna MD Work Phone: Start: 06-06-2024 Ct thorax w/contrast material Jose Mdariel Greensarah DO Work Phone: Start: 06-05-2024 Radiologic exam ches t single view Valery Reyna MD Work Phone: Start: 06-04-2024 Radiologic exam ches t single view Valery Reyna MD Work Phone: Start: 06-03-2024 Radiologic exam ches t single view Valery Reyna MD Work Phone: Start: 06-02-2024 Radiologic exam ches t single view Cailin Beltran MD Work Phone: Start: 06-01-2024 Ct thorax w/contrast material Cailin Beltran MD Work Phone: Start: 06-01-2024 Radiologic exam abdo men 1 view Katie Lina DO Work Phone: Start: 05-31-2024 Radiologic exam ches t single view Matt Barba DO Work Phone: Start: 05-30-2024 Ct abdomen & pelvis w/contrast material Matt Barba DO Work Phone: Start: 05-30-2024 Radiologic exam ches t single view Rajiv Valdes MD Work Phone: Start: 05-29-2024 Ct abdomen & pelvis w/contrast material Cristopher Ramirez MD Work Phone: Start: 05-29-2024 Ct angiography chest w/contrast/noncontrast Cristopher Ramirez MD Work Phone: Start: 05-29-2024 Radiologic exam ches t single view Rajiv Valdes MD Work Phone: Start: 05-28-2024 Radiologic exam ches t single view Lino Armijo MD Work Phone: Start: 05-27-2024 Radiologic exam ches t single view Jahaira Eduardo MD Work Phone: Start: 05-26-2024 Radiologic exam ches t single view Lino Armijo MD Work Phone: Start: 2024 Radiologic exam ches t single view Lino Armijo MD Work Phone: Start: 05-24-2024 Radiologic exam ches t single view Katie Lina DO Work Phone: Start: 05-23-2024 Radiologic exam ches t single view Matt Barba DO Work Phone: Start: 05-22-2024 Radiologic exam ches t single view Neyda Bobby MD Work Phone: Start: 05-21-2024 Radiologic exam ches t single view Neyda Bobby MD Work Phone: Start: 05-20-2024 Radiologic exam ches t single view Katie Lina DO Work Phone: Start: 05-19-2024 Ct thorax w/o contra st material Maurisio Burton MD Work Phone: Start: 05-19-2024 Radiologic exam ches t single view Kimberlee Ritz DO Work Phone: Start: 05-18-2024 Radiologic exam ches t single view Rahul Lewis MD Work Phone: Start: 05-17-2024 End: 05-17-2024 Us guidance needle placement img s&i Shaan Cobian MD Work Phone: Start: 05-17-2024 Unlisted procedure n ervous system Shaan Cobian MD Work Phone: Start: 05-17-2024 Radiologic exam ches t single view Rahul Lewis MD Work Phone: Start: 05-17-2024 Ct pelvis w/o contra st material Ezequiel Ford DO Work Phone: Start: 06-14-2022 Depression screening Be njamin Ball Other Depression screening Kaylee Moore Other Plan of Treatment Date Care Activity Detail Author Start: 06-01-2024 Influenza vaccination Influenza Vacc ine (#1) [facility] Start: 05-02-2024 COVID-19 Vaccine ( season) COVID-19 Vaccine ( season) [facility] Start: 05-02-2024 Influenza vaccination Influenza Vacc ine (#1) [facility] Start: 2016 RSV Vaccine (75+ years) RSV Vaccine (75+ years) [facility] Start: 05-02-2007 Annual wellness visit Annual [facility] Visit ([id number]) [facility] Start: 2006 Pneumococcal vaccination Pneum ococcal Vaccine(s) (65+ yrs) (1 of 1 - PCV) [facility] Start: 2001 Hepatitis B (HBV) Va ccine (optional start 60+ years) Hepatitis B (HBV) Vaccine (optional start 60+ years) [facility] Start: 1991 Shingles (RZV) Vacci ne (1 of 2) Shingles (RZV) Vaccine (1 of 2) [facility] Start: 1960 Hepatitis A (HAV) Va ccine (optional start 19+ years) Hepatitis A (HAV) Vaccine (optional start 19+ years) [facility] Start: 1959 Tdap Booster Tdap Booster [facility] Start: 1947 Pneumococcal vaccination Pneum ococcal Vaccine(s) (65+ yrs) (1 of 2 - PCV) [facility] PEG WITH TRACHEOSTOMY PEG WITH T RACHEOSTOMY Routine scheduled Closed fracture of multiple ribs with flail chest, initial encounter [facility] THORACOSCOPY THORACOSCOPY 5/E - Within 24 Hours Closed fracture of multiple ribs with flail chest, initial encounter [facility] Immunizations Immunization Date Immunization Notes Care Provider Isac reid 06-11-2023 influenza, high dose seasonal, preservative-free Dony Moore Other [employer] Other 06-11-2023 influenza virus vaccine, unspecified formulation [facility] 03-11-2023 Prevnar 20 Dony Moore Other [facility] 06-19-2021 influenza virus vaccine, split virus (incl. purified surface antigen) Dony Moore Other [employer] Other 06-19-2021 influenza virus vaccine, unspecified formulation [facility] 08-02-2020 influenza virus vaccine, split virus (incl. purified surface antigen) Dony Moore Other [employer] Other 08-02-2020 influenza virus vaccine, unspecified formulation [facility] Payers Date Payer Category Payer Unknown [id number] 2006 Medicare MEDICARE - RAILR OAD MEDICARE RAILROAD [employer] [id number] 2006-Present [address] [address] [place] [address] Medicare [id number] 1959 Medicare [id number] 2.16.840.1.018403.19 1959 Unknown [id number] 2.16.8 40.1.074856.19 1941 Unknown [id number] 2.16.840.1.686235.3.579.2.593 1941 Unknown [id number] 2.16.840.1.961620.3.579.2.593 1941 Unknown [id number] 2.16.840.1.732347.3.579.2.727 1941 Unknown [id number] 2.16.840.1.342532.3.579.2.727 1941 Unknown [id number] 2.16.840.1.934532.3.579.2.727 1941 Unknown [id number] 2.16.840.1.922502.3.579.2.727 1941 Unknown [id number] 2.16.840.1.930330.3.579.2.732 1941 Unknown [id number] 2.16.840.1.106143.3.579.2.732 1941 Unknown [id number] 2.16.840.1.974876.3.579.2.732 1941 Unknown [id number] 2.16.840.1.201640.3.579.2.73 1941 Unknown [id number] 2.16.840.1.252414.3.579.2.73 1941 Unknown [id number] 2.16.840.1.230637.3.579.2.73 1941 Unknown [id number] 2.16.840.1.046169.3.579.2.73 1941 Unknown [id number] 2.16.840.1.767314.3.579.2.73 1941 Unknown [id number] 2.16.840.1.574610.3.579.2.73 1941 Unknown [id number] 2.16.840.1.084340.3.579.2.73 1941 Unknown [id number] 2.16.840.1.827031.3.579.2.73 1941 Unknown [id number] 2.16.840.1.935690.3.579.2.73 1941 Unknown [id number] 2.16.840.1.474904.3.579.2.73 1941 Unknown [id number] 2.16.840.1.392551.3.579.2.73 1941 Unknown [id number] 2.16.840.1.170316.3.579.2.73 1941 Unknown [id number] 2.16.840.1.112067.3.579.2.73 1941 Unknown [id number] 2.16.840.1.991610.3.579.2.73 1941 Unknown [id number] 2.16.840.1.970046.3.579.2.73 1941 Unknown [id number] 2.16.840.1.012138.3.579.2.73 1941 Unknown [id number] 2.16.840.1.901306.3.579.2. 1941 Unknown [id number] 2.16.840.1.694072.3.579.2. 1941 Unknown [id number] 2.16.840.1.991628.3.579.2. 1941 Unknown [id number] 2.16840.1.711160.3.579.2. 1941 Unknown [id number] 2.16840.1.863712.3.579.2. 1941 Unknown [id number] 2.16840.1.085576.3.579.2. 1941 Unknown [id number] 2.16.840.1.006592.3.579.2. 1941 Unknown [id number] 2.16.840.1.238806.3.579.2. 1941 Unknown [id number] 2.16.840.1.462497.3.579.2.73 1941 Unknown [id number] 2.16.840.1.067574.3.579.2. 1941 Unknown [id number] 2.16.840.1.145410.3.579.2.73 1941 Unknown [id number] 2.16.840.1.576482.3.579.2.73 1941 Unknown [id number] 2.16.840.1.097258.3.579.2. 1941 Unknown [id number] 2.16.840.1.009210.3.579.2. 1941 Unknown [id number] 2.16.840.1.997522.3.579.2. 1941 Unknown [id number] 2.16.840.1.371291.3.579.2. 1941 Unknown [id number] 2.16840.1.260243.3.579.2. 1941 Unknown [id number] 2.16840.1.148667.3.579.2. 1941 Unknown [id number] 2.16840.1.019911.3.579.2 1941 Unknown [id number] 2.16840.1.959031.3.579.2. 1941 Unknown [id number] 2.16840.1.692289.3.579.2. 1941 Unknown [id number] 2.16840.1.175709.3.579.2. 1941 Unknown [id number] 2.16840.1.348437.3.579.2. 1941 Unknown [id number] 2.16840.1.874267.3.579.2. 1941 Unknown [id number] 2.16840.1.690832.3.579.2. 1941 Unknown [id number] 2.16840.1.507580.3.579.2. 1941 Unknown [id number] 2.16840.1.845213.3.579.2 1941 Unknown [id number] 2.16.840.1.045369.3.579.2.73 1941 Unknown [id number] 2.16.840.1.882394.3.579.2. 1941 Unknown [id number] 2.16.840.1.179332.3.579.2. 1941 Unknown [id number] 2.16840.1.535050.3.579.2. 1941 Unknown [id number] 2.16.840.1.613260.3.579.2. 1941 Unknown [id number] 2.16840.1.486766.3.579.2. 1941 Unknown [id number] 2.840.1.564308.3.579.2 1941 Unknown [id number] 2.16840.1.930478.3.579.2. 1941 Unknown [id number] 2.16840.1.288488.3.579.2 1941 Unknown [id number] 2.16840.1.719796.3.579.2. 1941 Unknown [id number] 2.840.1.397793.3.579.2. 1941 Unknown [id number] 2.16840.1.529024.3.579.2. 1941 Unknown [id number] 2.16.840.1.096697.3.579.2. 1941 Unknown [id number] 2.16.840.1.639075.3.579.2. 1941 Unknown [id number] 2.16840.1.110642.3.579.2. 1941 Unknown [id number] 2.16.840.1.654384.3.579.2.732 1941 Unknown [id number] 2.16.840.1.080833.3.579.2.732 1941 Unknown [id number] 2.16.840.1.379877.3.579.2.732 1941 Unknown [id number] 2.16.840.1.778989.3.579.2.727 1941 Unknown [id number] 2.16.840.1.051980.3.579.2.727 Social History Date Type Detail Facility Start: 05-20-2024 Sex Assigned At [facility] Start: 1941 Sex Assigned At Male [facility] Tobacco smoking stat [facility] Tobacco smoking consumption unknown [facility] Start: 1941 Sex assigned at Not on file [facility] Start: 05-20-2024 History of Social function [facility] (I/We) worried [facility] (my/our) food would run out before (I/we) got money to buy more. Never true [facility] In the past 12 month s, has lack of transportation kept you from medical appointments or from getting medications? No [facility] In the past 12 month s, was there a time when you were not able to pay the mortgage or rent on time? No [facility] Start: 05-16-2024 Tobacco smoking status Light tobacco smoker (finding) [facility] Medical Equipment Procedure Code Equipment Code Equipment Origin al Text Equipment Identifier Dates Cap Orth Lck Hex Drv Ns Lf Ea1 [id number] - [id number] Start: 05-20-2024 Plt 23mm Brdg Lc k Post Ea1 [id number] - [id number] Start: 05-20-2024 Inst Orth 23mm L ng Brdg Post Ea1 [id number] - [id number] Start: 05-20-2024 Wshr Orth Ns Lf Ea1 [id number] - [id number] Start: 05-20-2024 Functional Status Date Assessment Result Facility 05-16-2024 Functional Status N/A [facility] Clinical Notes 09-10-2022 to 06-10-2024 Anesthesia Acute Pain - Maurisio Fontanez MD - 05/17/2024 7:10 PM EDTAnesthesia Acute Pain - Maurisio Fontanez MD - 05/17/2024 7:10 PM Jane Jalloh SW, FUR MIXER OPERATOR - 05/17/2024 1:24 AM EDT Note Date & Type Note Facility 06-10-2024 [facility]-26-[facility]24 Note -per patient control led by oxycodone 10 mg q4hr prn for severe pain -consider pain management consult for consideration of procedure options for non-cancer acute pain [facility] 2024 Note -per patient control led by oxycodone 10 mg q4hr prn for severe pain -consider pain management consult for consideration of procedure options for non-cancer acute pain [facility] 05-17-2024 Anesthesiology procedure note Acute Pain Service Follow Up Note Patient with R-sided MADDIE catheter in situ for post-operative pain (+-7cm catheter length threaded into plane). Current basal infusion rate: 0.4% Lidocaine 12cc [id number] intermittent bolus with no patient bolus. Subjective: Pt reports minimal pain Objective: Vitals wnl Chest: clear, GAEB CVS: S1, S2 normal, no M/R/G Abd: Dressing c/d/I Neuro: MADDIE catheter dressing c/d/I +- 490cc remaining in infusion bag. A: Good functioning MADDIE catheter. Recommendations: - Continue at current pump settings for now. Bag refills can be sent up from pharmacy as needed by nursing. Anesthesia can come up to spike new bag if needed. Please don't hesitate to contact the Anesthesia APS team during work hours or the Senior vice president quality driver education road instructor in the Main OR after hours if there are any questions. Maurisio Fontanez MD Anesthesia PGY-4 Pain pager: [phone] [facility] Work Phone: 05-17-2024 Miscellaneous Notes Acute Pain Service Follow Up Note Patient with R-sided MADDIE catheter in situ for post-operative pain (+-7cm catheter length threaded into plane). Current basal infusion rate: 0.4% Lidocaine 12cc [id number] intermittent bolus with no patient bolus. Subjective: Pt reports minimal pain Objective: Vitals wnl Chest: clear, GAEB CVS: S1, S2 normal, no M/R/G Abd: Dressing c/d/I Neuro: MADDIE catheter dressing c/d/I +- 490cc remaining in infusion bag. A: Good functioning MADDIE catheter. Recommendations: - Continue at current pump settings for now. Bag refills can be sent up from pharmacy as needed by nursing. Anesthesia can come up to spike new bag if needed. Please don't hesitate to contact the Anesthesia APS team during work hours or the Senior vice president quality driver education road instructor in the Main OR after hours if there are any questions. Maurisio Fontanez MD Anesthesia PGY-4 Pain pager: [phone] Images from the original note were not included. Acute Pain Progress Note Patient: Andrea Michelle, male, 83 year old Patient is: inpatient Reason for Consultation/Chief Complaint: Acute Pain History of Present Illness : 83 year old male with PMH as detailed below, presenting with Right sided rib fractures. c/o moderate to severe pain, worse with inspiration and movement, mild to moderate relief with oral medications. Patient now comfortable s/p right sided MADDIE catheter at T6. Review of Systems: Pulmonary: COPD Cardio-vascular: HTN, CAD, and Previous [place] Musculoskeletal: LUE, LLE, RUE, and RLE motor and sensory grossly intact. Dressing in place, appears c/d/i. Endocrine: Diabetes and Thyroid disease Hematologic: Bleeding Disorder (acquired hemophilia A) and History of DVT s/p IVC filter 2019. There is no previous medical history on file. No past medical history on file. No family history on file. Social History Socioeconomic History Marital status: Social Determinants of Health Received from [facility] has no history on file for drug use. Current Facility-Administered Medications Medication Dose Route Frequency Last Rate Last Admin enoxaparin (LMWH) anti-fxa lab draw Other One Time Dose enoxaparin (LOVENOX) 40 MG/0.4ML injection 40 mg 0.5 mg/kg Subcutaneous 2x Daily ketorolac (TORADOL) 15 MG/ML injection 15 mg Intravenous Push Q6H PRN HYDROmorphone (DILAUDID) 0.2 MG/ML injection 0.2 mg 0.2 mg Intravenous Push Q2H PRN fluticasone (FLOVENT HFA) 110 MCG/ACT inhaler 1 Puff Inhalation Daily 1 Puff at 05/17/24 1156 umeclidinium-vilanterol (ANORO-ELLIPTA) 62.5-25 mcg/inh inhalation powder 1 Puff Inhalation Q DAILY RT 1 Puff at 05/17/24 1155 metoprolol (LOPRESSOR) split tablet 12.5 mg Oral 2x Daily oxyCODONE immediate release tablet 5 mg Oral Q4H PRN oxyCODONE immediate release tablet 7.5 mg Oral Q4H PRN polyethylene glycol (MIRALAX) 17 g packet 17 g Oral Daily acetaminophen (TYLENOL) tablet 1,000 mg Oral q6h 1,000 mg at 05/17/24 0942 lidocaine (LIDODERM) 4 % patch 1 Patch Transdermal Every 24 hours 1 Patch at 05/17/24 0318 methocarbamol (ROBAXIN) tablet 750 mg Oral 4x Daily 750 mg at 05/17/24 1221 lactated ringers iv infusion Intravenous Continuous 100 mL/hr at 05/17/24 1300 Rate Verify at 05/17/24 1300 senna (SENOKOT) tablet 8.6 mg Oral Daily PRN Vital Signs: See Floor Vitals Physical Examination: Pulmonary: Chest clear to auscultation bilaterally Cardiovascular: RRR with S1S2 and No murmurs, gallops, or rubs Neurologic: Awake, alert, oriented, No motor deficits and Sensation grossly intact Extremities: LUE, LLE, RUE, and RLE in dressing otherwise no gross or obvious abnormalities Laboratory Tests: CBC (last 3 years, up to 8 values) 05/17/2024 3:04 AM WBC 13.4 RBC 4.24 Hgb 14.1 Hct 41.9 MCV 99 RDW 13.5 Plt 250 BMP (last 3 years, up to 8 values) 05/17/2024 05/17/2024 3:04 AM 12:58 AM Na 127 127 K 5.3 5.2 Cl 91 91 CO2 28 28 Gap 13 13 Glu 155 150 BUN 25 22 Cr 1.22 0.87 Ca 9.7 9.6 eGFR 59 86 INR (no units) Date Value 05/17/2024 0.86 (L) Impression: 83 year old male with right sided rib fractures 4-9 a/w flail chest, saturating appropriately on 6L NC now s/p Right sided MADDIE catheter at T6. Plan/Recommendation: - Right Sided T6 MADDIE catheter placed on 05/17. Day 0/5. Infusion rate with 1% lidocaine @ 10 cc intermittent bolus every 45 mins. Can increase as needed. Needle depth at 4 cm, catheter taped at skin at 7 cm. - Continue Lovenox 40 mg Daily at night time only - Will continue to follow and re-evaluate need for catheter daily - Please inform team if need to escalate DVT prophylaxis regimen as catheter needs removed beforehand. All vital signs were stable during the procedure and at least 30 minutes after the procedure. See the Floor Nursing Vital Records for more details. Shaan Cobian MD Anesthesiology and Pain Medicine 05/17/2024, 2:17 PM APS service [phone] Associated attestation - Girish Shannon MD - 05/18/2024 6:44 AM EDT Teaching Physician Note: I saw and evaluated the patient. I personally obtained the pickering and critical portions of the history and physical exam. I reviewed the resident's documentation and discussed the patient with the resident. I agree with the resident's medical decision making as documented in the resident's note. Improved pain after lidocaine bolus, patient slightly altered after unlikely from lidocaine from MADDIE recommend further evaluation from primary team. No signs of local anesthesia toxicity at this time. Girish Shannon MD documented in this encounter [facility] 05-17-2024 Anesthesiology procedure note Images from the original note were not included. Acute Pain Progress Note Patient: Andrea Michelle, male, 83 year old Patient is: inpatient Reason for Consultation/Chief Complaint: Acute Pain History of Present Illness : 83 year old male with PMH as detailed below, presenting with Right sided rib fractures. c/o moderate to severe pain, worse with inspiration and movement, mild to moderate relief with oral medications. Patient now comfortable s/p right sided MADDIE catheter at T6. Review of Systems: Pulmonary: COPD Cardio-vascular: HTN, CAD, and Previous [place] Musculoskeletal: LUE, LLE, RUE, and RLE motor and sensory grossly intact. Dressing in place, appears c/d/i. Endocrine: Diabetes and Thyroid disease Hematologic: Bleeding Disorder (acquired hemophilia A) and History of DVT s/p IVC filter 2020. There is no previous medical history on file. No past medical history on file. No family history on file. Social History Socioeconomic History Marital status: Social Determinants of Health Received from [facility] has no history on file for drug use. Current Facility-Administered Medications Medication Dose Route Frequency Last Rate Last Admin enoxaparin (LMWH) anti-fxa lab draw Other One Time Dose enoxaparin (LOVENOX) 40 MG/0.4ML injection 40 mg 0.5 mg/kg Subcutaneous 2x Daily ketorolac (TORADOL) 15 MG/ML injection 15 mg Intravenous Push Q6H PRN HYDROmorphone (DILAUDID) 0.2 MG/ML injection 0.2 mg 0.2 mg Intravenous Push Q2H PRN fluticasone (FLOVENT HFA) 110 MCG/ACT inhaler 1 Puff Inhalation Daily 1 Puff at 05/17/24 1156 umeclidinium-vilanterol (ANORO-ELLIPTA) 62.5-25 mcg/inh inhalation powder 1 Puff Inhalation Q DAILY RT 1 Puff at 05/17/24 1155 metoprolol (LOPRESSOR) split tablet 12.5 mg Oral 2x Daily oxyCODONE immediate release tablet 5 mg Oral Q4H PRN oxyCODONE immediate release tablet 7.5 mg Oral Q4H PRN polyethylene glycol (MIRALAX) 17 g packet 17 g Oral Daily acetaminophen (TYLENOL) tablet 1,000 mg Oral q6h 1,000 mg at 05/17/24 0942 lidocaine (LIDODERM) 4 % patch 1 Patch Transdermal Every 24 hours 1 Patch at 05/17/24 0318 methocarbamol (ROBAXIN) tablet 750 mg Oral 4x Daily 750 mg at 05/17/24 1221 lactated ringers iv infusion Intravenous Continuous 100 mL/hr at 05/17/24 1300 Rate Verify at 05/17/24 1300 senna (SENOKOT) tablet 8.6 mg Oral Daily PRN Vital Signs: See Floor Vitals Physical Examination: Pulmonary: Chest clear to auscultation bilaterally Cardiovascular: RRR with S1S2 and No murmurs, gallops, or rubs Neurologic: Awake, alert, oriented, No motor deficits and Sensation grossly intact Extremities: LUE, LLE, RUE, and RLE in dressing otherwise no gross or obvious abnormalities Laboratory Tests: CBC (last 3 years, up to 8 values) 05/17/2024 3:04 AM WBC 13.4 RBC 4.24 Hgb 14.1 Hct 41.9 MCV 99 RDW 13.5 Plt 250 BMP (last 3 years, up to 8 values) 05/17/2024 05/17/2024 3:04 AM 12:58 AM Na 127 127 K 5.3 5.2 Cl 91 91 CO2 28 28 Gap 13 13 Glu 155 150 BUN 25 22 Cr 1.22 0.87 Ca 9.7 9.6 eGFR 59 86 INR (no units) Date Value 05/17/2024 0.86 (L) Impression: 83 year old male with right sided rib fractures 4-9 a/w flail chest, saturating appropriately on 6L NC now s/p Right sided MADDIE catheter at T6. Plan/Recommendation: - Right Sided T6 MADDIE catheter placed on 05/17. Day 0/5. Infusion rate with 1% lidocaine @ 10 cc intermittent bolus every 45 mins. Can increase as needed. Needle depth at 4 cm, catheter taped at skin at 7 cm. - Continue Lovenox 40 mg Daily at night time only - Will continue to follow and re-evaluate need for catheter daily - Please inform team if need to escalate DVT prophylaxis regimen as catheter needs removed beforehand. All vital signs were stable during the procedure and at least 30 minutes after the procedure. See the Floor Nursing Vital Records for more details. Shaan Cobian MD Anesthesiology and Pain Medicine 05/17/2024, 2:17 PM APS service [phone] Associated attestation - Girish Shannon MD - 05/18/2024 6:44 AM EDT Teaching Physician Note: I saw and evaluated the patient. I personally obtained the pickering and critical portions of the history and physical exam. I reviewed the resident's documentation and discussed the patient with the resident. I agree with the resident's medical decision making as documented in the resident's note. Improved pain after lidocaine bolus, patient slightly altered after unlikely from lidocaine from MADDIE recommend further evaluation from primary team. No signs of local anesthesia toxicity at this time. Girish Shannon MD [facility] 05-17-2024 Anesthesiology procedure note Associated Order(s): Peripheral Block Peripheral Block Patient location during procedure: ICU Start time: 05/17/2024 1:45 PM Reason for block: procedure for pain Preanesthetic Checklist Completed: patient identified, IV checked, risks and benefits discussed, consent given, standard monitors applied and equipment checked, pre-op evaluation and timeout performed Staffing: Authorized by: Girish Shannon MD Performed by: Shaan Cobian MD Peripheral Block - erector spinae plane block Patient position: L lateral decubitus Prep: ChloraPrep and sterile technique and prep Laterality: right Injection technique: catheter Guidance: ultrasound guided Local infiltration: 3 mL of 1% lidocaine ULTRASOUND DOCUMENTATION: Ultrasound was used during this procedure to provide direct visualization of the nerves and surrounding vasculature, to improve block set up time, and potentially decrease complications. Surrounding anatomy and nerves were identified. Proper needle placement was confirmed as well as the deposition of local anesthetic around the nerve bundles. A copy of the image was placed in the permanent record. Needle Needle type: Tuohy Epidural needly 17g 3.5 inch. Needle localization: anatomical landmarks and ultrasound guidance Needle insertion depth: 4 cm Catheter size: 19G. Catheter at skin depth: 7 cm Assessment Injection assessment: negative aspiration for heme, no paresthesia on injection, incremental injection and local visualized surrounding nerve on ultrasound Paresthesia pain: none Heart rate change: no Slow fractionated injection: yes No block complications [facility] 05-17-2024 Surgical operatio n note Associated Order(s): Peripheral Block Peripheral Block Patient location during procedure: ICU Start time: 05/17/2024 1:45 PM Reason for block: procedure for pain Preanesthetic Checklist Completed: patient identified, IV checked, risks and benefits discussed, consent given, standard monitors applied and equipment checked, pre-op evaluation and timeout performed Staffing: Authorized by: Girish Shannon MD Performed by: Shaan Cobian MD Peripheral Block - erector spinae plane block Patient position: L lateral decubitus Prep: ChloraPrep and sterile technique and prep Laterality: right Injection technique: catheter Guidance: ultrasound guided Local infiltration: 3 mL of 1% lidocaine ULTRASOUND DOCUMENTATION: Ultrasound was used during this procedure to provide direct visualization of the nerves and surrounding vasculature, to improve block set up time, and potentially decrease complications. Surrounding anatomy and nerves were identified. Proper needle placement was confirmed as well as the deposition of local anesthetic around the nerve bundles. A copy of the image was placed in the permanent record. Needle Needle type: Tuohy Epidural needly 17g 3.5 inch. Needle localization: anatomical landmarks and ultrasound guidance Needle insertion depth: 4 cm Catheter size: 19G. Catheter at skin depth: 7 cm Assessment Injection assessment: negative aspiration for heme, no paresthesia on injection, incremental injection and local visualized surrounding nerve on ultrasound Paresthesia pain: none Heart rate change: no Slow fractionated injection: yes No block complications documented in this encounter [facility] 05-17-2024 History of Presen t illness Narrative Cat 1 Pt is an 83 yo M presenting via [facility] from [facility] s/p fall down 6-8 steps with multiple rib fractures, hemathorax with chest tube, and pubic ramus fracture. Per report pt fell down basement steps and was on the ground for 1-1.5 hours until his spouse found him and called 911. With permission, ROBB contacting spouse Ilana Michelle ([phone]). Spouse aware of pt's presentation to ED and plan to admit. Spouse plans to call/visit tomorrow. Plan: Admit MARGIE Mendez, FUR MIXER OPERATOR ED Finishing Range Operator documented in this encounter [facility] 05-17-2024 Note Consultation Note TRAUMA HISTORY & PHYSICAL BASIC INJURY INFORMATION: Level of activation: Level 1 Mode of transport: EMS Mechanism of injury: Fall down 13 steps Complicating features: None Referring ED physician: Ludmila Leach HISTORY OF PRESENT INJURY: 83-year-old male presents as a level 1 trauma after falling down 13 steps. Was observed by EMS to be having extremely labored breathing, right chest wall deformity, paradoxical motion of the right chest wall. Denies any loss of consciousness. States that most of his pain is in his right chest wall and back. PRIMARY SURVEY: Airway: intact Breath Sounds: Diminished breath sounds on the right Circulation: Pulses: radial/femoral/DP/PT palpable b/l Skin: carri color, warm Disability: Pupils: REANNA GCS: Best Eyes: 4 Best Verbal: 5 Best Motor: 6 Total: 15 SECONDARY SURVEY: Temperature 36.3 (22:05) Systolic Blood Pressure 124 (23:30) Diastolic Blood Pressure 77 (23:30) Pulse 91 (23:30) SpO2 94 (23:30) Respiratory Rate 19 (23:30) General: Neurologic: motor/sensory grossly intact BUE, BLE HEENT: Head: normocephalic, atraumatic; Eyes: REANNA; EOM intact, no raccoon's eyes Ears: no bloody TM, no Webb's sign Nose: nasal septum intact, nontender Throat: no hematoma, trachea midline Neck: no hematoma/ no midline tenderness in c spine Pulmonary: Diminished breath sounds on the right, chest wall deformity with paradoxical motion of the lateral chest wall Cardiovascular: Pulses: RRR, radial/femoral/DP/PT palpable b/l Abdomen: soft, NT, ND Pelvis/Perineum: stable, non tender Musculoskeletal: Back/Spine: non tender no stepoff/deformity Extremities: full AROM/PROM, no tenderness/deformity PAST MEDICAL HISTORY: No qualifying data available. PAST SURGICAL HISTORY: No qualifying data available. PRE-ADMISSION MEDICATIONS: Medication List Active Medications No Active Medications Found Medications Inactivated in the Last 72 Hours HYDROmorphone: Misc, Once. HYDROmorphone: 0.5 mg, 0.5 mL, IV Push, Once. HYDROmorphone: 0.5 mg, 0.5 mL, IV Push, Once. iopamidol: Misc, Once. iopamidol: Misc, Once. Lactated Ringers Injection: Misc, Once. lidocaine: Misc, Once. Sodium Chloride 0.9% intravenous solution: Misc, Once. ALLERGIES: No Known Allergies SOCIAL HISTORY: Alcohol Risk Assessment: Medium Risk; Details: Current, Beer, Daily, 4 drinks/episode average. Substance Abuse Risk Assessment: Denies Substance Abuse Tobacco Risk Assessment: Medium Risk; Details: 4 or less cigarettes(less than 1/4 pack)/day in last 30 days Tobacco Use:. Cigarettes FAMILY HISTORY: No family history recorded. Denies history of bleeding or clotting disorders BASIC LABS: WBC: 17.3 E9/L High (05/16/24 21:58:00) RBC: 4.2 E12/L Low (05/16/24 21:58:00) HGB: 14 gm/dL (05/16/24 21:58:00) Hct: 41.1 % (05/16/24 21:58:00) MCV: 98.5 fL (05/16/24 21:58:00) MCH: 33.7 pg (05/16/24 21:58:00) MCHC: 34.2 gm/dL (05/16/24 21:58:00) RDW: 13.1 % (05/16/24 21:58:00) Platelet: 282 E9/L (05/16/24 21:58:00) MPV: 6.3 fL Low (05/16/24 21:58:00) Neutro Auto: 83.7 % High (05/16/24 21:58:00) Lymph Auto: 8.6 % Low (05/16/24 21:58:00) Imperial Auto: 4.3 % (05/16/24 21:58:00) Eos Auto: 3 % (05/16/24 21:58:00) Basophil Auto: 0.4 % (05/16/24 21:58:00) Neutro Absolute: 14.5 E9/L High (05/16/24 21:58:00) Lymph Absolute: 1.5 E9/L (05/16/24 21:58:00) Imperial Absolute: 0.7 E9/L (05/16/24 21:58:00) Eos Absolute: 0.5 E9/L (05/16/24 21:58:00) Basophil Absolute: 0.1 E9/L (05/16/24 21:58:00) PT: 9.3 second(s) Low (05/16/24 21:58:00) INR: 0.83 (05/16/24 21:58:00) PTT: 29.9 second(s) (05/16/24 21:58:00) Glucose Lvl: 143 mg/dL (05/16/24 21:58:00) BUN: 20 mg/dL (05/16/24 21:58:00) Creatinine: 0.8 mg/dL (05/16/24 21:58:00) eGFR: 88 mL/min/1.73 m2 (05/16/24:58:00) BUN/Creat Ratio: 25 High (05/16/24 21:58:00) Sodium Lvl: 126 mmol/L Low (05/16/24 21:58:00) Potassium Lvl: 3.8 mmol/L (05/16/24 21:58:00) Chloride: 92 mmol/L Low (05/16/24 21:58:00) CO2: 23 mmol/L (05/16/24:58:00) AGAP: 15 mEq/L (05/16/24:58:00) Calcium Lvl: 9.5 mg/dL (05/16/24 21:58:00) Alk Phos: 62 Int._Unit/L (05/16/24 21:58:00) ALT: 23 Int._Unit/L (05/16/24 21:58:00) AST: 34 Int._Unit/L (05/16/24 21:58:00) Total Protein: 7 gm/dL (05/16/24 21:58:00) Albumin Lvl: 4.4 gm/dL (05/16/24 21:58:00) Globulin: 2.6 gm/dL (05/16/24 21:58:00) A/G Ratio: 1.7 (05/16/24 21:58:00) Bili Total: 0.3 mg/dL (05/16/24 21:58:00) Bili Direct: 0.1 mg/dL (05/16/24 21:58:00) Bili Indirect: 0.2 mg/dL (05/16/24 21:58:00) Lipase Lvl: 40 unit/L (05/16/24 21:58:00) Lactic Acid Lvl: 2.5 mmol/L High (05/16/24 21:58:00) Troponin HS: 5.4 pg/mL Low (05/16/24 21:58:00) Ethanol Lvl: 18 mg/dL High (05/16/24 21:58:00) ABO/Rh: A POS (05/16/24 21:58:00) ABSC Gel Interp: Negative (05/16/24 21:58:00) RADIOLOGY: all imaging personally reviewed by me in real time to expedite patien (more content not included)... [facility] Comment on above: Result Comment: Elec tronically Signed By: Mackenzie MENA, Santos Vicente\.br\Date and Time Signed: 05/17/24 00:05 EDT 05-16-2024 Note Procedural PROCEDURE NOTE: PIGTAIL CHEST TUBE PLACEMENT Pre-procedure Diagnosis: Right hemopneumothorax Post-procedure Diagnosis: Right hemopneumothorax Consent obtained from patient. The patient was placed in appropriate position. The landmarks for right sided tube placement in approximately the 4/5 intercostal space were identified. Anesthesia was obtained with 10cc of 1% lidocaine. The chest was prepped and draped in the usual sterile fashion. A scalpel was used to make an incision at the selected site needle inserted into the pleural space followed by an 0.035 guidewire through the needle. Over the wire the tract was serially dilated and finally a 14 F pigtail catheter was inserted. The wire and internal stiffener was removed and the tube was attached to an underwater seal apparatus. The tube was sutured in place in the usual fashion and an appropriate dressing was placed over the site. The patient tolerated the procedure well. Santos Mann MD [facility] Trauma and Emergency General Surgery [facility] 05-16-2024 Evaluation + Plan note Extrac shannon from: Title:ED Note Author:Ludmila Leach DO Date :05/16/24 Closed head injury (S09.90XA : Unspecified injury of head, initial encounter) Hyponatremia (E87.1: Hypo-osmolality and hyponatremia) Pneumothorax (J93.9: Pneumothorax, unspecified) Rib fractures (S22.49XA: Multiple fractures of ribs, unspecified side, initial encounter for closed fracture) Orders: HYDROmorphone, 0.5 mg = 0.5 mL, Injection, IV Push, Once, Stop date 05/16/24 22:07:00 EDT, Start date 05/16/24 22:07:00 EDT XR Chest Single View Diagnostic Tests Pending * Drug Screen Urine 05/16/24 [facility] 01-18-2024 Evaluation note* Encounter Date Diagnosis Assessment Notes Treatment Notes Treatment Clinical Notes Sep, Xerosis cutis (ICD-10 - L85.3) [employer] Other 10-11-2023 Evaluation note* Encounter Date Diagnosis Assessment Notes Treatment Notes Treatment Clinical Notes Jun, Medicare annual wellness visit, subsequent (ICD-10 - Z00.00) Personalized health advice was given to the beneficiary including a written plan for screenings discussed and provided. Advanced care planning reviewed and/or information given as requested. Additional counseling was provided here today in regards to, [ ]. The above visit was performed by [ ], under direct supervision of [ ]. Document reviewed and amended by provider signed below. Jun, ASHD (arteriosclerotic heart disease) (ICD-10 - I25.10) This patient is stable without activity related CP, dyspnea or lightheadedness. They are instructed to continue exercise and AHA diet plan. Continue secondary prevention measures. Jun, Pulmonary nodule (ICD-10 - R91.1) CT: 1.1cm EMMIE nodule - 03/2023 Recommend serial LDCT chest. Last CTA in Jun, Cigarette nicotine dependence without complication (ICD-10 - F17.210) This patient has been encouraged to quit tobacco use immediately. They are aware of the hazards associated with tobacco use, including but not limited to respiratory infections, vascular disease and cancers. Jun, Mucopurulent chronic bronchitis (ICD-10 - J41.1) Instructed on smoking cessation. Smokes 3 cigs daily Using nicotine patches, instructed not to use while smoking No inhaler use at this time Recent admission w/ CAP requiring intubation - doesn't require home oxygen Jun, Primary hypertension (ICD-10 - I10) This patient is instructed to consume a healthy, low-fat, low-salt diet. They are also encouraged to continue exercise to achieve/maintain a normal BMI. Jun, Elevated cholesterol (ICD-10 - E78.00) Instructed on diet and exercise with continued statin therapy.Discussed the beneficial effects of lowering cholesterol in reducing the risk for cerebrovascular and cardiovascular disease. Jun, Single subsegmental pulmonary embolism without acute cor pulmonale (ICD-10 - I26.93) Opted not to anticoagulate due to hemophelia. No respiratory symptoms of dyspea, CP or hemoptysis Jun, Lumbar spondylosis (ICD-10 - M47.816) The patient is instructed to avoid bending, twisting or lifting. They are to use intermittent heat and ice as needed. They may schedule a massage or gentle manipulation. They may safely use Tylenol as needed. Jun, Subclinical hypothyroidism (ICD-10 - E03.8) Monitor for now, treat if symptoms consistent w/ hypothyroid or TSH > 8 [employer] Other 10-11-2023 Evaluation note* Encounter Date Diagnosis Assessment Notes Treatment Notes Treatment Clinical Notes Jun, Medicare annual wellness visit, subsequent (ICD-10 - Z00.00) Personalized health advice was given to the beneficiary including a written plan for screenings discussed and provided. Advanced care planning reviewed and/or information given as requested. Additional counseling was provided here today in regards to, [ ]. The above visit was performed by [ ], under direct supervision of [ ]. Document reviewed and amended by provider signed below. Jun, ASHD (arteriosclerotic heart disease) (ICD-10 - I25.10) This patient is stable without activity related CP, dyspnea or lightheadedness. They are instructed to continue exercise and AHA diet plan. Continue secondary prevention measures. Jun, Pulmonary nodule (ICD-10 - R91.1) CT: 1.1cm EMMIE nodule - 03/2023 Recommend serial LDCT chest. Last CTA in Jun, Mucopurulent chronic bronchitis (ICD-10 - J41.1) Instructed on smoking cessation. Smokes 3 cigs daily Using nicotine patches, instructed not to use while smoking No inhaler use at this time Recent admission w/ CAP requiring intubation - doesn't require home oxygen Jun, Primary hypertension (ICD-10 - I10) This patient is instructed to consume a healthy, low-fat, low-salt diet. They are also encouraged to continue exercise to achieve/maintain a normal BMI. Jun, Elevated cholesterol (ICD-10 - E78.00) Instructed on diet and exercise with continued statin therapy.Discussed the beneficial effects of lowering cholesterol in reducing the risk for cerebrovascular and cardiovascular disease. Jun, Single subsegmental pulmonary embolism without acute cor pulmonale (ICD-10 - I26.93) Opted not to anticoagulate due to hemophelia. No respiratory symptoms of dyspea, CP or hemoptysis Jun, Lumbar spondylosis (ICD-10 - M47.816) The patient is instructed to avoid bending, twisting or lifting. They are to use intermittent heat and ice as needed. They may schedule a massage or gentle manipulation. They may safely use Tylenol as needed. Jun, Subclinical hypothyroidism (ICD-10 - E03.8) Monitor for now, treat if symptoms consistent w/ hypothyroid or TSH > 8 Jun, Other This patient sheehan s been encouraged to quit tobacco use immediately. They are aware of the hazards associated with tobacco use, including but not limited to respiratory infections, vascular disease and cancers. [employer] Other 10-03-2023 Evaluation note* Encounter Date Diagnosis Assessment Notes Treatment Notes Treatment Clinical Notes Jun, Pulmonary nodule (ICD-10 - R91.1) CT: 1.1cm EMMIE nodule - 03/2023, CT: no change EMMIE nodule - 06/2023 [employer] Other 09-28-2023 Evaluation note* Encounter Date Diagnosis Assessment Notes Treatment Notes Treatment Clinical Notes May, Pulmonary nodule (ICD-10 - R91.1) [employer] Other 07-11-2023 Evaluation note* Encounter Date Diagnosis Assessment Notes Treatment Notes Treatment Clinical Notes Mar, Chronic obstructive pulmonary disease with (acute) exacerbation (ICD-10 - J44.1) Finished antibiotics Continue tapering doses of Prednisone. Check oxygen level at home, maintain > 90% Avoid restarting tobacco use _update immunization - Pneumovax 20 - yearly Flu Mar, Acute on chronic respiratory failure with hypercapnia (ICD-10 - J96.22) Failed CPAP and intubated until stable. d/c w/o oxygen or PAP Complete tapering doses of Prednisone Mar, ASHD (arteriosclerotic heart disease) (ICD-10 - I25.10) This patient is stable without activity related CP, dyspnea or lightheadedness. They are instructed to continue exercise and AHA diet plan. Mar, Pulmonary nodule (ICD-10 - R91.1) CT: 1.1cm EMMIE nodule - 03/2023 Explained guidelines for pulmonary nodule surveillance He is high risk Mar, Hyponatremia (ICD-10 - E87.1) Healthy diet, decrease alcohol consumption, fluid restrict to 1500ml/day, salt food. Recheck lytes, Osmo, Urine Na Mar, Cigarette nicotine dependence without complication (ICD-10 - F17.210) This patient has been encouraged to quit tobacco use immediately. They are aware of the hazards associated with tobacco use, including but not limited to respiratory infections, vascular disease and cancers. Continue to abstain Mar, Subclinical hypothyroidism (ICD-10 - E03.8) Avoid Biotin Recheck labs Mar, Primary hypertension (ICD-10 - I10) This patient is instructed to consume a healthy, low-fat, low-salt diet. They are also encouraged to continue exercise to achieve/maintain a normal BMI. Mar, Mucopurulent chronic bronchitis (ICD-10 - J41.1) Mucinex as needed Avoid tobacco use. UTD w/ immunizations Mar, Elevated cholesterol (ICD-10 - E78.00) Instructed on diet and exercise with continued statin therapy.Discussed the beneficial effects of lowering cholesterol in reducing the risk for cerebrovascular and cardiovascular disease. Mar, Lumbar spondylosis (ICD-10 - M47.816) The patient is instructed to avoid bending, twisting or lifting. They are to use intermittent heat and ice as needed. They may schedule a massage or gentle manipulation. They may safely use Tylenol as needed. Denies radicular pain or weakness Referral to [facility] Management Clinic Mar, Elevated TSH (ICD-10 - R79.89) Hypothyroid vs subclinical hypothyroid. recheck labs Mar, Other No s/s recurren ce Keep active No bleeding compications Small subsegmental PE does not require AC [email or web address] Other 04-10-2023 Evaluation note* Encounter Date Diagnosis Assessment Notes Treatment Notes Treatment Clinical Notes Nov, Essential hypertensi on (ICD-10 - I10) This patient is instructed to consume a healthy, low-fat, low-salt diet. They are also encouraged to continue exercise to achieve/maintain a normal BMI. Nov, ASHD (arteriosclerot ic heart disease) (ICD-10 - I25.10) This patient is stable without activity related CP, dyspnea or lightheadedness. They are instructed to continue exercise and AHA diet plan. Nov, Cigarette nicotine dependence without complication (ICD-10 - F17.210) This patient has been encouraged to quit tobacco use immediately. They are aware of the hazards associated with tobacco use, including but not limited to respiratory infections, vascular disease and cancers. Nov, Mucopurulent chronic bronchitis (ICD-10 - J41.1) Smoking cessation encouraged. Mucinex as needed. No need for inhalers, no ER/hosp visits for AECOPD - discussed HHN w/ [facility] as affordable Nov, Elevated cholesterol (ICD-10 - E78.00) Diet and exercise with continued statin therapy. Nov, Gastroesophageal reflux disease with esophagitis, unspecified whether hemorrhage (ICD-10 - K21.00) Diet instructions: Smaller portions, avoid eating and laying flat, avoid eating or drinking prior to bedtime. Weight loss. 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 Monitor for GI bleeding. [email or web address] Other 01-10-2023 Evaluation note* Encounter Date Diagnosis Assessment Notes Treatment Notes Treatment Clinical Notes Sep, ASHD (arteriosclerot ic heart disease) (ICD-10 - I25.10) This patient is stable without activity related CP, dyspnea or lightheadedness. They are instructed to continue exercise and AHA diet plan. Sep, Mucopurulent chronic bronchitis (ICD-10 - J41.1) This patient has been encouraged to quit tobacco use immediately. They are aware of the hazards associated with tobacco use, including but not limited to respiratory infections, vascular disease and cancers. Sep, Essential (primary) hypertension (ICD-10 - I10) This patient is instructed to consume a healthy, low-fat, low-salt diet. They are also encouraged to continue exercise to achieve/maintain a normal BMI. 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 Healthy, high protein diet. Sep, Cigarette nicotine dependence without complication (ICD-10 - F17.210) Sep, Lumbar spondylosis (ICD-10 - M47.816) The patient is instructed to avoid bending, twisting or lifting. They are to use intermittent heat and ice as needed. They may schedule a massage or gentle manipulation. They may safely use Tylenol as needed. 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) No bleeding complications Sep, Gastroesophageal reflux disease with esophagitis without hemorrhage (ICD-10 - K21.00) Sep, Other Symtoms tolerable [facility] Other Evaluation [facility]No [facility] Other Evaluation noteNo assessment information available [facility] Work Phone: History general Narrative - Reported* Type Description Date Medical History Gastroesophageal ref lux disease with esophagitis, unspecified whether hemorrhage Medical History Benign prostatic hyp erplasia with lower urinary tract symptoms Medical History Urinary frequency Medical History Cigarette nicotine dependence [facility] complication Medical History Olecranon bursitis of right elbo w Medical History Acute blood loss anemia Medical History Lumbar spondylosis Medical History Depression screening Medical History Body mass index (BMI) of 25.0 to 29.9 Medical History Deep vein thrombosis (DVT) of proximal vein of left lower extremity, unspecified chronicity Medical History Tobacco user Medical History Subclinical hypothyroidism Medical History Left adrenal mass Medical History Hypertriglyceridemia Medical History Essential hypertension Medical History Acquired hemophilia A Medical History Mucopurulent chronic bronchitis Medical History ASHD (arteriosclerotic heart dis ease) Medical History Acute bilateral low back pain wi thout sciatica Medical History Elevated transaminase level Medical History Deep vein thrombosis (DVT) of femoral vein of left lower extremity Surgical History IVC filter Surgical History appendectomy Hospitalization History see surgical history [email or web address] Other History general Narrative - Reported* Type Description Date Medical History Gastroesophageal ref lux disease with esophagitis, unspecified whether hemorrhage Medical History Benign prostatic hyp erplasia with lower urinary tract symptoms Medical History Urinary frequency Medical History Cigarette nicotine dependence wi thout complication Medical History Olecranon bursitis of right elbo w Medical History Acute blood loss anemia Medical History Lumbar spondylosis Medical History Depression screening Medical History Body mass index (BMI) of 25.0 to 29.9 Medical History Deep vein thrombosis (DVT) of proximal vein of left lower extremity, unspecified chronicity Medical History Tobacco user Medical History Subclinical hypothyroidism Medical History Left adrenal mass Medical History Hypertriglyceridemia Medical History Essential hypertension Medical History Acquired hemophilia A Medical History Mucopurulent chronic bronchitis Medical History ASHD (arteriosclerotic heart dis ease) Medical History Acute bilateral low back pain wi thout sciatica Medical History Elevated transaminase level Medical History Deep vein thrombosis (DVT) of femoral vein of left lower extremity Medical History Pulmonary nodule EMMIE Surgical History IVC filter Surgical History appendectomy Hospitalization History see surgical history [email or web address] Other Hospital course Narrative No data available for this section [facility] Hospital Discharge instructions No data available for this section [facility] Procedure anesthesia Narrative* Procedure Summary Procedure Name Responsible Anesthesiologist Anesthesia Start Time Anesthesia Stop Time ACUTE PAIN CONSULT Events Date Time Event Comment 05/17/2024 1412 AN Equip Check Meds Name Total lidocaine methylparaben-free (XYLOCAINE) injection 2 % 20 mL * Agents No agents on file. * Blood No blood administrations on file. Lines, Drains, and Airways Type Details Placement Removal Chest Tube: 05/17/24; Right, Upp er; Abdomen; Present on Arrival to Hospital / Inserted by EMS 05/17/24 0000 by Susan Webb RN Indwelling Urinary Catheter 05/17/24; 03 26; 16 FR; Temperature-sensing catheter; 10; RN 05/17/24 0326 by Susan Webb RN Epidural 05/17/24; 1400 05/17/24 1400 by Amanda Whipple RN Peripheral IV Line 05/19/24; 1200; 20 g auge; Anterior, Right; Forearm 05/19/24 1200 by Amanda Whipple RN Peripheral IV Line 05/19/24; 1200; 18 g auge; Left, Posterior; Wrist 05/19/24 1200 by Amanda Whipple RN [facility] Narrative* Procedure Summary Procedure Name Responsible Anesthesiologist Anesthesia Start Time Anesthesia Stop Time ACUTE PAIN CONSULT Events Date Time Event Comment 05/17/2024 1412 AN Equip Check Meds Name Total lidocaine methylparaben-free (XYLOCAINE) injection 2 % 20 mL * Agents No agents on file. * Blood No blood administrations on file. Lines, Drains, and Airways Type Details Placement Removal Indwelling Urinary Catheter 05/17/24; 0326; 16 FR; Temperature-sensing catheter; 10; RN 05/17/24 0326 by Susan Webb RN Epidural 05/17/24; 1400 05/17/24 1400 by Amanda Whipple RN Peripheral IV Line 05/19/24; 1200; 18 g auge; Left, Posterior; Wrist 05/19/24 1200 by Amanda Whipple RN Advanced Airway 05/19/24; 1430; # 7. 5; Bilateral breath sounds, Equal chest rise & fall, End-tidal CO2 color detector (+color change); Equal bilateral breath sounds, CO2 confirmed; Glidescope, Bite block placed 05/19/24 1430 by Amanda Whipple RN Arterial Line 05/19/24; 1530; Left; Radial 1530 by Amanda Whipple RN Wound 05/19/24; 2030; Righ t; Arm; Other; infiltration of levophed; N 05/19/242029 by Cristina Sun RN OG/NG 05/19/24; 2100; O/G; 18 Fr; Oral; 60 cm 05/19/242099 by Amanda Whipple RN CVC - Triple Lumen 05/19/24; 2145; Cent ral Line; Left; IJ; wire-guided, ultrasound guided 05/19/24 214 by Cristina Sun RN Chest Tube: 05/20/24; 1505; # 1; Right, Upper; Abdomen 05/20/24 1505 by Negra Arvizu Chest Tube: 05/20/24; 1506; # 2; Right, Upper; Abdomen 05/20/24 1506 by Negra Arvizu Wound 05/20/24; 1520; Righ t; Chest; Surgical - Incision; 1 incision sutured dressed with island dressingchest tubes dressed with xeroform and tegadermtegaderm and 2x2 to previous chest tube site 05/20/24 1520 by Negra Arvizu [facility] Procedure Summary Procedure Name Responsible Anesthesiologist Anesthesia Start Time Anesthesia Stop Time ACUTE PAIN CONSULT Events Date Time Event Comment 05/17/2024 1412 AN Equip Check Meds Name Total lidocaine methylparaben-free (XYLOCAINE) injection 2 % 20 mL * Agents No agents on file. * Blood No blood administrations on file. Lines, Drains, and Airways Type Details Placement Removal Indwelling Urinary Catheter 05/17/24; 0326; 16 FR; Temperature-sensing catheter; 10; RN 05/17/24 0326 by Susan Webb RN Epidural 05/17/24; 1400 05/17/24 1400 by Amanda Whipple RN Wound 05/19/24; 2030; Righ t; Arm; Other; infiltration of levophed; N 05/19/242029 by Cristina Sun RN CVC - Triple Lumen 05/19/24; 2145; Cent ral Line; Left; IJ; wire-guided, ultrasound guided 05/19/24 214 by Cristina Sun RN Chest Tube: 05/20/24; 1505; # 1; Right, Upper; Abdomen 05/20/24 1505 by Negra Arvizu Chest Tube: 05/20/24; 1506; # 2; Right, Upper; Abdomen 05/20/24 1506 by Negra Arvizu Wound 05/20/24; 1520; Righ t; Chest; Surgical - Incision; 1 incision sutured dressed with island dressingchest tubes dressed with xeroform and tegadermtegaderm and 2x2 to previous chest tube site 05/20/24 1520 by Negra Arvizu OG/NG 05/21/24; 1530; Nostril; 60 cm 0 05/21/24 1530 by Sukhwinder Ca, JOSÉ MANUEL Peripheral IV Line 05/22/24; 0941; 20 g auge; Posterior, Right; Wrist 05/22/24 0941 by Sukhwinder Ca RN Peripheral IV Line 05/22/24; 0943; 20 g auge; Left, Posterior; Wrist 05/22/24 0943 by Sukhwinder Ca, JOSÉ MANUEL documented [facility] encounter [facility] No data available for this section [facility] Summary Purpose Family History No Family History Records FoundNo Family History Records FoundNo Family History Records FoundNo Family History Records FoundNo Family History Records FoundNo Family History Records FoundNo Family History Records FoundNo Family History Records FoundNo Family History Records FoundNo Family History Records FoundNo Family History Records FoundNo Family History Records FoundNo Family History Records FoundNo Family History Records FoundNo Family History Records Found No data available for this section No data available for this section No Family History Records Found Advance Directives No Advanced Directives Records Found Date Activated Date Inactivated Comments 05/17/2024 3:52 AM 06/10/2024 5:53 PM Question Answer Comments Documentation of decision pr ocess for this code status: Discussed with patient or surrogate. This is the code status chosen by the patient/surrogate. Date Activated Date Inactivated Comments 05/17/2024 2:58 AM 05/17/2024 3:52 AM Question Answer Comments Documentation of decision pr ocess for this code status: Patient and surrogate unable or unavailable to discuss. There is no previous documentation of code status. Defaulting to Full Code Advance Directive Response Recorded Date/ Time Advance Directives No September 24, 2023 4:00pm Date Activated Date Inactivated Comments 05/17/2024 3:52 AM Question Answer Comments Documentation of decision pr ocess for this code status: Discussed with patient or surrogate. This is the code status chosen by the patient/surrogate. Date Activated Date Inactivated Comments 05/17/2024 2:58 AM 05/17/2024 3:52 AM Question Answer Comments Documentation of decision pr ocess for this code status: Patient and surrogate unable or unavailable to discuss. There is no previous documentation of code status. Defaulting to Full Code Date Activated Date Inactivated Comments 05/17/2024 3:52 AM Chief Complaint and Reason for Visit Chief Complaint 6 month follow up Additional Source Comments REASON FOR VISIT (unrecogniz ed section and content) Reason Comments Trauma/complex Medical Situation Specialty Diagnoses / Procedures Referred By Contac t Referred To Contact Emergency Medicine Diagnoses Fall (on) (from) other stairs and steps, initial encounter Multiple fractures of ribs, right side, initial encounter for closed fracture Fracture of unspecified parts of lumbosacral spine and pelvis, initial encounter for closed fracture (HCC) Acute respiratory failure with hypoxia (HCC) Flail chest, initial encounter for closed fracture [place]- Fall backwards dwon 8-9 steps. multiple right rib fractures with chest tube Procedures NA [facility] [employer] [place] [address] Phone: [phone] [place] [place] [address] Phone: [phone] Referral ID Status Reason Start Date Expiration Date Visits Re quested Visits Authorized [id number] 3 (unrecognized sect ion and content) No Status Records FoundNo Status Records FoundNo Status Records FoundNo Status Records FoundNo Status Records FoundNo Status Records FoundNo Status Records FoundNo Status Records FoundNo Status Records FoundNo Status Records FoundNo Status Records FoundNo Status Records FoundNo Status Records FoundNo Status Records FoundNo Status Records FoundNo Status Records Found INFORMATION SOURCE (unrecogn ized section and content) DATE CREATED AUTHOR 10/26/2022 [facility] DATE CREATED AUTHOR AUTHOR'S ORGANIZ ATION [facility]/17/2024 [facility] DATE CREATED AUTHOR AUTHOR'S ORGANIZ ATION 07/12/2024 [facility] [employer] [facility] [facility] DATE CREATED AUTHOR AUTHOR'S ORGANIZ ATION 07/20/2024 [facility] DATE CREATED AUTHOR AUTHOR'S ORGANIZ ATION 08/26/2024 [facility] Care Teams (unrecognized sec tion and content) Team Status: Active Member Role Status Dates Dony Moore DO Primary Care Provider Active Team Status: Inactive Member Role Status Dates Dony Ball , DO Primary Care Provide r, Attending Provider Active Start: December 12, 2023 End: December 12, 2023 Goals (unrecognized section and content) Goals may be documented in a n alternate section FOR RECORDS PERTAINING TO PATIENTS WHO ARE OR HAVE BEEN ENROLLED IN A CHEMICAL DEPENDENCY/SUBSTANCEABUSE PROGRAM, SOME INFORMATION MAY BE OMITTED. This clinical summary was aggregated from multiple sources. Caution should be exercised in using it in the provision of clinical care. This summary normalizes information from multiple sources, and as a consequence, information in this document may materially change the coding, format and clinical context of patient data. In addition, data may be omitted in some cases. CLINICAL DECISIONS SHOULD BE BASED ON THE PRIMARY CLINICAL RECORDS. [facility]. provides no warranty or guarantee of the accuracy or completeness of information in this document.
--- NOTE | 2024-12-18 13:02 | ED.EPISTAXI1 ---
HPI - Epistaxis General Chief Complaint: Epistaxis Time Seen by Provider: 12/18/24 12:57 Source: patient Mode of arrival: walk-in Limitations: no limitations History of Present Illness HPI Narrative: The patient is coming to the ER to have his left inserted Rhino Rocket removed after it was inserted almost 4 days ago here in our ER because of epistaxis. The bleeding stopped since the Rhino Rocket was inserted and the patient denies any other concerns He have a history of hemophilia Related Data Home Medications ?Medication ?Instructions ?Recorded ?Confirmed lisinopril 40 mg tablet 40 mg PO DAILY 02/28/23 12/14/24 metoprolol succinate 25 mg 25 mg PO DAILY 02/28/23 12/14/24 tablet,extended release 24 hr Allergies Allergy/AdvReac Type Severity Reaction Status Date / Time No Known Drug Allergies Allergy Verified 12/16/24 16:34 Review of Systems ROS Status of ROS 10 or more systems reviewed and unremarkable except as noted in history and below PFSH [facility] Medical History H/O deep venous thrombosis ?Z86.718 - Personal history of other venous thrombosis and embolism (ICD-10) Diabetes ?E11.9 - Type 2 diabetes mellitus without complications (ICD-10) History of mechanical ventilation ?Z92.89 - Personal history of other medical treatment (ICD-10) 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) Hyponatremia ?E87.1 - Hypo-osmolality and hyponatremia (ICD-10) Hypertension ?I10 - Essential (primary) hypertension (ICD-10) COPD (chronic obstructive pulmonary disease) ?J44.9 - Chronic obstructive pulmonary disease, unspecified (ICD-10) 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 General: Well-appearing and in no apparent distress. Skin: Warm, dry, no pallor noted. No rash. Head: Normocephalic, atraumatic. Neck: Supple, non-tender. Nasal exam: There is a nasal Rhino Rocket in the left side and it is intact, right nostril there is no bleeding Constitutional Vital Signs, click to edit/add: Last Vital Signs Temp 98.1 F 12/18/24 12:52 Pulse 74 12/18/24 12:52 Resp 18 12/18/24 12:52 BP 151/74 H 12/18/24 12:52 Pulse Ox 96 12/18/24 12:52 Course Vital Signs Vital signs: Vital Signs Temperature 98.1 F 12/18/24 12:52 Pulse Rate 74 12/18/24 12:52 Respiratory Rate 18 12/18/24 12:52 Blood Pressure 151/74 H 12/18/24 12:52 Pulse Oximetry 96 12/18/24 12:52 Temperature 98.1 F 12/18/24 12:52 Pulse Rate 74 12/18/24 12:52 Respiratory Rate 18 12/18/24 12:52 Blood Pressure 151/74 H 12/18/24 12:52 Pulse Oximetry 96 12/18/24 12:52 MDM - Epistaxis MDM Narrative Medical decision making narrative: The patient had the Rhino Rocket deflated and removed with no difficulty There was a minimal amount of blood on the Rhino Rocket and the patient had no further bleeding after the Rhino Rocket removed The patient did not have any active bleeding in the ER Patient was discharged The patient is to follow up with primary care physician in next 2-3 days or to return to the emergency department should any of the signs or symptoms worsen or new symptoms develop. The patient agrees with the following Diagnosis and Treatment plan and the patient will be discharged home. Discharge Plan Discharge Chief Complaint: Epistaxis Clinical Impression: Epistaxis Patient Disposition: Home, Self-Care Time of Disposition Decision: 13:03 Condition: Good Prescriptions / Home Meds: No Action lisinopril 40 mg tablet 40 mg PO DAILY metoprolol succinate 25 mg tablet extended release 24 hr 25 mg PO DAILY Print Language: Mohawk Instructions: Nosebleed (ED) Referrals: Dony Rao DO [Primary Care Provider] - 1 week Discharge Date/Time: 12/18/24 13:08
== END 2024-12-18 13:08 | disposition home or self-care (01) ==
PROVIDERS: Emergency Provider Emergency Medicine; PCP Internal Medicine
DX: R04.0 Epistaxis (principal); Z48.00 Encounter for change or removal of nonsurgical wound dressing; Z95.828 Presence of other vascular implants and grafts; F17.200 Nicotine dependence, unspecified, uncomplicated
CPT/HCPCS: 99284

== ENCOUNTER 2025-02-28 13:00 | Outpatient (OUT) | payer MEDICARE, OTHER, SELFPAY ==
--- OUTSIDE RECORDS SUMMARY | 2025-02-28 13:05 | XMS_ITS | Referral Summary ---
Author Organization [facility] Address [address] [place] [address] Care Team Providers Care Apple Peeler Operator Name Role Phone Unavailable Primary Care Provider Unavailabl e Social History Tobacco Use Types Packs/Day Years Used Date Smoking Tobacco: Never Assessed [place] Safety & Environment Answer Date Rec orded Fear of Current or Ex-Partner Not on file Emotionally Abused Not on file 10/23/2023 Physically Abused Not on file 10/23/2023 Sexually Abused Not on file 10/23/2023 Physically or Sexually Abused Not on file Sex and Gender Information Value Date Recorded Sex Assigned at Not on file Legal Sex Male 10:36 PM EDT Gender Identity Not on file Sexual Orientation Not on file Last Filed Vital Signs Vital Sign Reading Time Taken Comments Blood Pressure 158/100 07/05/2019 2:05 PM EST Pulse - - Temperature - - Respiratory Rate - - Oxygen Saturation 96% 07/05/2019 2:04 PM EST Inhaled Oxygen Concentration - - Weight 68.9 kg (152 lb) 07/05/2019 2:04 PM EST Height 172.7 cm (5' 8 ) 07/05/2019 2:01 PM EST Body Mass Index 23.11 07/05/2019 2:01 PM EST Plan of Treatment Not [place] [id number] [place] [address] [facility] [place] [address]
--- OUTSIDE RECORDS SUMMARY | 2025-02-28 13:05 | XMS_ITS | Encounter Summary ---
Author Organization [facility] Address [address] [place] [address] Care Team Providers Care Medical Practice Administrator Name Role Phone Unavailable Primary Care Provider Unavailabl e Encounter Details Date Type Department Care Team (Late st Contact Info) Description 07/11/2024 Lab Requisition [facility] Lab [address] [place] [address] Juan José Lozano MD [address] [place] [id number] Social History Tobacco Use Types Packs/Day Years Used Date Smoking Tobacco: Never Assessed ID Safety & Environment Answer Date Rec orded [...] on file Sexual Orientation Not on file documented as of this encounter Plan of Treatment Not on file documented as of this encounter Procedures Procedure Name Priority Date/Time Associated Diagnosis Comments TSH Routine 07/14/2024 5:53 AM EST T4, FREE Routine 07/14/2024 5:53 AM EST PHOSPHORUS Routine 07/14/2024 5:53 AM EST MAGNESIUM Routine 07/14/2024 5:53 AM EST COMPREHENSIVE METABOLIC PANEL Routine 07/14/2024 5:53 AM EST CBC WITH AUTO DIFFERENTIAL Routine 07/14/2024 3:30 AM EST CBC AND DIFFERENTIAL Routine 07/14/2024 3:30 AM EST documented in this encounter Results * TSH (07/14/2024 5:53 AM EST) TSH 2.15 0.34 - 5.60 mIU/L 07/14/2024 8:17 AM EST [facility] ([facility]) Blood Venous blood specimen / Unknown Venipuncture / Unknown 07/14/2024 5:53 AM EST 07/14/2024 5:53 AM EST Juan José Lozano MD LAB BLOOD ORDERABLES Final Result Performing Organization Address City/[facility]/ZIP Co de Phone Number [facility]) [address] [place] [address] * T4, free (07/14/2024 5:53 AM EST) Pathologist [facility] Free T4 1.06 0.71 - 1.85 ng/dL 07/14/2024 8:46 AM EST [facility]) Blood Venous blood specimen / Unknown Venipuncture / Unknown 07/14/2024 5:53 AM EST 07/14/2024 5:53 AM EST Juan José Lozano MD LAB BLOOD ORDERABLES Final Result [facility] ([facility]) [address] [place], [place] [id number] * Phosphorus (07/14/2024 5:53 AM EST) Phosphorus 3.1 2.5 - 5.0 mg/dL 07/14/2024 8:02 AM EST [facility]) Blood Venous blood specimen / Unknown Venipuncture / Unknown 07/14/2024 5:53 AM EST 07/14/2024 5:53 AM EST us Juan José Lozano MD LAB BLOOD ORDERABLES Final Result [facility]) [address] [place] [address] * Magnesium (07/14/2024 5:53 AM EST) Magnesium 2.2 1.9 - 2.7 mg/dL 07/14/2024 8:02 AM EST [facility] ([facility]) Blood Venous blood specimen / Unknown Venipuncture / Unknown 07/14/2024 5:53 AM EST 07/14/2024 5:53 AM EST Juan José Lozano MD LAB BLOOD ORDERABLES Final Result Performing Organization Address City/[facility]/ZIP Co de Phone Number [facility]) [address] [place] [address] * (ABNORMAL) Comprehensive metabolic panel (07/14/2024 5:53 AM EST) Sodium 133(L) 136 - 145 mmol/L 07/14/2024 9:20 AM EST [facility] ([facility]) Potassium 4.4 3.5 - 5.1 mmol/L 07/14/2024 9:20 AM EST [facility] ([facility]) Chloride 99 98 - 107 mmol/L 07/14/2024 9:20 AM EST [facility] ([facility]) CO2 32(H) 21 - 31 mmol/L 07/14/2024 9:20 AM EST [facility] ([facility]) Anion Gap 6(L) 7 - 20 mmol/L 07/14/2024 9:20 AM EST [facility] ([facility]) BUN 61(H) 7 - 25 mg/dL 07/14/2024 9:20 AM EST [facility] ([facility]) Creatinine 0.71 0.70 - 1.30 mg/dL 07/14/2024 9:20 AM EST [facility] ([facility]) BUN/Creatinine Ratio 85.9 07/02 9:20 AM [facility]3] LAB ([facility]) Glucose 87 70 - 100 mg/dL 07/14/2024 9:20 AM [facility]3] LAB ([facility]) Calcium 9.4 8.6 - 10.3 mg/dL 07/14/2024 9:20 AM [facility]3] LAB ([facility]) AST 16 13 - 39 U/L 07/14/2024 9:20 AM [facility]3] LAB ([facility]) ALT (SGPT) 13 7 - 52 U/L 07/14/2024 9:20 AM [facility]3] LAB ([facility]) Alkaline Phosphatase 88 34 - 104 U/L 07/14/2024 9:20 AM [facility]3] LAB ([facility]) Total Protein 6.9 6.0 - 8.3 g/dL 07/14/2024 9:20 AM [facility] ([facility]) Albumin 3.3(L) 3.5 - 5.7 g/dL 07/14/2024 9:20 AM [facility] ([facility]) Total Bilirubin 0.3 0.3 - 1.0 mg/dL 07/14/2024 9:20 AM [facility]3] LAB ([facility]) eGFR 91.0 >60.0 mL/min/1. 73m*2 07/14/2024 9:20 AM [facility]3] LAB ([facility]) Comment:The [facility] s estimated glomerular filtration rate (eGFR) will no longer include consideration of race in its calculation. The [employer] s eGFR Task Force developed new recommendations for [...] disproportionately affect any one group of individuals. Blood Venous blood specimen / Unknown Venipuncture / Unknown 07/14/2024 5:53 AM EST 07/14/2024 5:53 AM EST us Juan José Lozano MD LAB BLOOD ORDERABLES Final Result [facility] ([facility]) [address] [place] [address] * (ABNORMAL) CBC auto differential (07/14/2024 3:30 AM EST) Auto WBC 7.54 4.00 - 10.60 10*3/uL 07/14/2024 6:44 AM EST [facility] ([facility]) RBC 2.88(L) 4.20 - 5.70 10*6/uL 07/14/2024 6:44 AM EST [facility] ([facility]) Hemoglobin 8.8(L) 13.0 - 17.0 g/dL 07/14/2024 6:44 AM EST [facility] ([facility]) Hematocrit 28.2(L) 39.0 - 55.0 % 07/14/2024 6:44 AM EST [facility] ([facility]) MCV 97.9 82.0 - 98.0 fL 07/14/2024 6:44 AM EST [facility] ([facility]) MCH 30.6 27.0 - 33.0 pg 07/14/2024 6:44 AM [facility]3] LAB ([facility]) MCHC 31.2(L) 32.0 - 35.0 g/dL 07/14/2024 6:44 AM EST [facility] ([facility]) RDW 15.9(H) 11.5 - 15.0 % 07/14/2024 6:44 AM EST [facility] ([facility]) Neutrophils % 70.9 40.0 - 72.0 % 07/14/2024 6:44 AM EST [facility] ([facility]) Lymphocytes % 15.6(L) 20.0 - 45.0 % 07/14/2024 6:44 AM EST [facility] ([facility]) Monocytes % 7.0 5.0 - 12.0 % 07/14/2024 6:44 AM EST [facility] ([facility]) Eosinophils % 5.6 0.0 - 6.0 % 07/14/2024 6:44 AM [facility]3] LAB ([facility]) Basophils % 0.4 0.0 - 1.0 % 07/14/2024 6:44 AM [facility]3] LAB ([facility]) Neutrophils Absolute 5.34 1.60 - 7.60 10*3/uL 07/14/2024 6:44 AM [facility]3] LAB ([facility]) Lymphocytes Absolute 1.18(L) 1.20 - 4.00 10*3/uL 07/14/2024 6:44 AM [facility]3] LAB ([facility]) Monocytes Absolute 0.53 0.10 - 1.00 10*3/uL 07/14/2024 6:44 AM [facility]3] LAB ([facility]) Eosinophils Absolute 0.42 0.00 - 0.50 10*3/uL 07/14/2024 6:44 AM [facility]3] LAB ([facility]) Basophils Absolute 0.03 0.00 - 0.20 10*3/uL 07/14/2024 6:44 AM [facility]3] LAB ([facility]) Platelets 261 150 - 400 10*3/uL 07/14/2024 6:44 AM [facility]3] LAB ([facility]) nRBC % 0.0 0 % 07/14/2024 6:44 AM [facility]3] LAB ([facility]) Immature Granulocytes % 0.5 0.0 - 1.0 % 07/14/2024 6:44 AM [facility]3] LAB ([facility]) Immature Granulocytes Absolute 0.04 0.00 - 0.20 10*3/uL 07/14/2024 6:44 AM [facility] ([facility]) Blood Venous blood specimen / Unknown Venipuncture / Unknown 07/14/2024 3:30 AM EST 07/14/2024 5:50 AM EST us Juan José Lozano MD LAB BLOOD ORDERABLES Final Result [facility] ([facility]) [address] [place] [address] documented in this encounter Visit Diagnoses Not on filedocumented in this encounter
--- OUTSIDE RECORDS SUMMARY | 2025-02-28 13:05 | XMS_ITS | Encounter Summary ---
Author Organization [facility] Address [address] [place] [address] Care Team Providers Care Sewing Machinist Name Role Phone Unavailable Primary Care Provider Unavailabl e Encounter Details Date Type Department Care Team (Late st Contact Info) Description 06/27/2024 Lab Requisition [facility] Hospital Lab [address] [place] [address] Juan José Lozano MD [address] [place] [id number] Respiratory failure, unspecified, unspecified whether with hypoxia or hypercapnia (CMS/HCC); Other specified diseases of liver Social History Tobacco Use Types Packs/Day Years Used Date Smoking Tobacco: Never Assessed MS Safety & Environment Answer Date Rec orded [...] Procedure Name Priority Date/Time Associated Diagnosis Comments CBC Routine 06/30/2024 5:30 AM EDT Respiratory failure, unspecified, unspecified whether with hypoxia or hypercapnia (CMS/HCC) Other specified diseases of liver PHOSPHORUS Routine 06/30/2024 5:30 AM EDT Other specified diseases of liver Respiratory failure, unspecified, unspecified whether with hypoxia or hypercapnia (CMS/HCC) MAGNESIUM Routine 06/30/2024 5:30 AM EDT Respiratory failure, unspecified, unspecified whether with hypoxia or hypercapnia (CMS/HCC) Other specified diseases of liver COMPREHENSIVE METABOLIC PANEL Routine 06/30/2024 5:30 AM EDT Other specified diseases of liver Respiratory failure, unspecified, unspecified whether with hypoxia or hypercapnia (CMS/HCC) documented in this encounter Results * Phosphorus (06/30/2024 5:30 AM EDT) Phosphorus 3.1 2.5 - 5.0 mg/dL 06/30/2024 6:30 AM EDT [facility] ([facility]) Blood Venous blood specimen / Unknown Venipuncture / Unknown 06/30/2024 5:30 AM EDT 06/30/2024 5:30 AM EDT Juan José Lozano MD LAB BLOOD ORDERABLES Final Result Performing Organization Address City/[facility]/ZIP Co de Phone Number [facility] ([facility]) [address] [place] [address] * Magnesium (06/30/2024 5:30 AM EDT) Pathologist [facility] Magnesium 1.9 1.9 - 2.7 mg/dL 06/30/2024 6:30 AM EDT [facility]) Blood Venous blood specimen / Unknown Venipuncture / Unknown 06/30/2024 5:30 AM EDT 06/30/2024 5:30 AM EDT Juan José Lozano MD LAB BLOOD ORDERABLES Final Result [facility]) [address] [place] [address] * (ABNORMAL) Comprehensive metabolic panel (06/30/2024 5:30 AM EDT) Sodium 138 136 - 145 mmol/L 06/30/2024 6:30 AM EDT [facility] ([facility]) Potassium 3.4(L) 3.5 - 5.1 mmol/L 06/30/2024 6:30 AM EDT [facility] ([facility]) Chloride 101 98 - 107 mmol/L 06/30/2024 6:30 AM T [facility] ([facility]) CO2 34(H) 21 - 31 mmol/L 06/30/2024 6:30 AM T [facility] ([facility]) Anion Gap 6(L) 7 - 20 mmol/L 06/30/2024 6:30 AM T [facility] ([facility]) BUN 20 7 - 25 mg/dL 06/30/2024 6:30 AM T [facility] ([facility]) Creatinine 0.51(L) 0.70 - 1.30 mg/dL 06/30/2024 6:30 AM T [facility] ([facility]) BUN/Creatinine Ratio 39.2 06/03 6:30 AM T [facility] ([facility]) Glucose 98 70 - 100 mg/dL 06/30/2024 6:30 AM [facility] ([facility]) Calcium 8.8 8.6 - 10.3 mg/dL 06/30/2024 6:30 AM [facility] ([facility]) AST 13 13 - 39 U/L 06/30/2024 6:30 AM [facility] ([facility]) ALT (SGPT) 14 7 - 52 U/L 06/30/2024 6:30 AM [facility] ([facility]) Alkaline Phosphatase 128(H) 34 - 104 U/L 06/30/2024 6:30 AM [facility] ([facility]) Total Protein 6.0 6.0 - 8.3 g/dL 06/30/2024 6:30 AM T [facility] ([facility]) Albumin 2.9(L) 3.5 - 5.7 g/dL 06/30/2024 6:30 AM [facility] ([facility]) Total Bilirubin 0.3 0.3 - 1.0 mg/dL 06/30/2024 6:30 AM [facility] ([facility]) eGFR 100.6 >60.0 mL/min/1. 73m*2 06/30/2024 6:30 AM EDT [facility] ([facility]) Comment:The [facility] s estimated glomerular filtration rate (eGFR) will [...] blood specimen / Unknown Venipuncture / Unknown 06/30/2024 5:30 AM EDT 06/30/2024 5:30 AM EDT us Juan José Lozano MD LAB BLOOD ORDERABLES Final Result [facility] ([facility]) [address] [place] [address] * (ABNORMAL) CBC (06/30/2024 5:30 AM EDT) Auto WBC 8.30 4.00 - 10.60 10*3/uL 06/30/2024 6:30 AM EDT [facility] ([facility]) RBC 2.96(L) 4.20 - 5.70 10*6/uL 06/30/2024 6:30 AM EDT [facility] ([facility]) Hemoglobin 9.0(L) 13.0 - 17.0 g/dL 06/30/2024 6:30 AM EDT [facility] ([facility]) Hematocrit 28.8(L) 39.0 - 55.0 % 06/30/2024 6:30 AM EDT [facility] ([facility]) MCV 97.3 82.0 - 98.0 fL 06/30/2024 6:30 AM EDT [facility] ([facility]) MCH 30.4 27.0 - 33.0 pg 06/30/2024 6:30 AM EDT [facility] ([facility]) MCHC 31.3(L) 32.0 - 35.0 g/dL 06/30/2024 6:30 AM EDT [facility] ([facility]) RDW 15.6(H) 11.5 - 15.0 % 06/30/2024 6:30 AM EDT [facility] ([facility]) Platelets 349 150 - 400 10*3/uL 06/30/2024 6:30 AM EDT [facility] ([facility]) Blood Venous blood specimen / Unknown Venipuncture / Unknown 06/30/2024 5:30 AM EDT 06/30/2024 5:30 AM EDT us Juan José Lozano MD LAB BLOOD ORDERABLES Final Result [facility] ([facility]) [address] [place] [address] documented in this encounter Visit Diagnoses Diagnosis Respiratory failure, unspecified, unspecified whether with hypoxia or hypercapnia (CMS/HCC) Other specified diseases of liver documented in this encounter
--- OUTSIDE RECORDS SUMMARY | 2025-02-28 13:05 | XMS_ITS | Encounter Summary ---
Author Organization [facility] Address [address] [place] [address] Care Team Providers Care Pharmacy Technician Assistant Name Role Phone Unavailable Primary Care Provider Unavailabl e Encounter Details Date Type Department Care Team (Late st Contact Info) Description 07/06/2024 Lab Requisition [facility] Lab [address] [place] [address] Juan José Lozano MD [address] [place] [phone] Respiratory failure, unspecified, unspecified whether with hypoxia or hypercapnia (CMS/HCC) Social History Tobacco Use Types Packs/Day Years Used Date Smoking Tobacco: Never Assessed PA Safety & Environment Answer Date Rec orded [...] Procedure Name Priority Date/Time Associated Diagnosis Comments MAGNESIUM Routine 07/06/2024 4:20 AM EST Respiratory failure, unspecified, unspecified whether with hypoxia or hypercapnia (CMS/HCC) BASIC METABOLIC PANEL Routine 07/06/2024 4:20 AM EST Respiratory failure, unspecified, unspecified whether with hypoxia or hypercapnia (CMS/HCC) documented in this encounter Results * Magnesium (07/06/2024 4:20 AM EST) Magnesium 2.2 1.9 - 2.7 mg/dL 07/06/2024 6:01 AM [facility] ([facility]) Blood Venous blood specimen / Unknown Venipuncture / Unknown 07/06/2024 4:20 AM EST 07/06/2024 5:28 AM EST us Juan José Lozano MD LAB BLOOD ORDERABLES Final Result [facility] ([facility]) [address] [place] [address] * (ABNORMAL) Basic metabolic panel (07/06/2024 4:20 AM EST) Sodium 135(L) 136 - 145 mmol/L 07/06/2024 6:01 AM [facility] ([facility]) Potassium 4.6 3.5 - 5.1 mmol/L 07/06/2024 6:01 AM [facility] ([facility]) Chloride 98 98 - 107 mmol/L 07/06/2024 6:01 AM [facility] ([facility]) CO2 34(H) 21 - 31 mmol/L 07/06/2024 6:01 AM [facility] ([facility]) BUN 52(H) 7 - 25 mg/dL 07/06/2024 6:01 AM [facility] ([facility]) Creatinine 0.96 0.70 - 1.30 mg/dL 07/06/2024 6:01 AM [facility] ([facility]) Glucose 97 70 - 100 mg/dL 07/06/2024 6:01 AM [facility] ([facility]) Calcium 9.4 8.6 - 10.3 mg/dL 07/06/2024 6:01 AM [facility] ([facility]) Anion Gap 8 7 - 20 mmol/L 07/06/2024 6:01 AM [facility] ([facility]) eGFR 78.4 >60.0 mL/min/1. 73m*2 07/06/2024 6:01 AM [facility] ([facility]) Comment:The [facility] s estimated glomerular filtration rate (eGFR) will [...] disproportionately affect any one group of individuals. BUN/Creatinine Ratio 54.2 12/2023 6:01 AM EST [facility] ([facility]) Blood Venous blood specimen / Unknown Venipuncture / Unknown 07/06/2024 4:20 AM EST 07/06/2024 5:28 AM EST us Juan José Lozano MD LAB BLOOD ORDERABLES Final Result [facility]) [address] [place] [address] documented in this encounter Visit Diagnoses Diagnosis Respiratory failure, unspecified, unspecified whether with hypoxia or hypercapnia (CMS/HCC) documented in this encounter
--- OUTSIDE RECORDS SUMMARY | 2025-02-28 13:05 | XMS_ITS | Encounter Summary ---
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 Lab [address] [place] [address] Juan José Lozano MD [address] [place] [id number] Social History Tobacco Use Types Packs/Day Years Used Date Smoking Tobacco: Never Assessed [place] Safety & Environment Answer Date Rec orded [...] Priority Date/Time Associated Diagnosis Comments CBC Routine 06/20/2024 4:11 AM EDT COMPREHENSIVE METABOLIC PANEL Routine 06/20/2024 4:11 AM EDT documented in this encounter Results * (ABNORMAL) Comprehensive metabolic panel (06/20/2024 4:11 AM EDT) Sodium 133(L) 136 - 145 mmol/L 06/20/2024 5:29 AM EDT [facility] ([facility]) Potassium 3.9 3.5 - 5.1 mmol/L 06/20/2024 5:29 AM T [facility] ([facility]) Chloride 100 98 - 107 mmol/L 06/20/2024 5:29 AM T [facility] ([facility]) CO2 29 21 - 31 mmol/L 06/20/2024 5:29 AM [facility] ([facility]) Anion Gap 8 7 - 20 mmol/L 06/20/2024 5:29 AM T [facility] ([facility]) BUN 37(H) 7 - 25 mg/dL 06/20/2024 5:29 AM T [facility] ([facility]) Creatinine 0.78 0.70 - 1.30 mg/dL 06/20/2024 5:29 AM T [facility] ([facility]) BUN/Creatinine Ratio 47.4 06/02 5:29 AM [facility] ([facility]) Glucose 107(H) 70 - 100 mg/dL 06/20/2024 5:29 AM [facility] ([facility]) Calcium 8.6 8.6 - 10.3 mg/dL 06/20/2024 5:29 AM [facility] ([facility]) AST 12(L) 13 - 39 U/L 06/20/2024 5:29 AM [facility] ([facility]) ALT (SGPT) 16 7 - 52 U/L 06/20/2024 5:29 AM [facility] ([facility]) Alkaline Phosphatase 112(H) 34 - 104 U/L 06/20/2024 5:29 AM [facility] ([facility]) Total Protein 6.0 6.0 - 8.3 g/dL 06/20/2024 5:29 AM [facility] ([facility]) Albumin 2.8(L) 3.5 - 5.7 g/dL 06/20/2024 5:29 AM [facility] ([facility]) Total Bilirubin 0.3 0.3 - 1.0 mg/dL 06/20/2024 5:29 AM [facility] ([facility]) eGFR 88.5 >60.0 mL/min/1. 73m*2 06/20/2024 5:29 AM [facility] ([facility]) Comment:[facility] s estimated glomerular filtration rate (eGFR) will [...] blood specimen / Unknown Venipuncture / Unknown 06/20/2024 4:11 AM EDT 06/20/2024 4:52 AM EDT us Juan José Lozano MD LAB BLOOD ORDERABLES Final Result [facility]) [address] [place] [address] * (ABNORMAL) CBC (06/20/2024 4:11 AM EDT) Auto WBC 8.31 4.00 - 10.60 10*3/uL 06/20/2024 5:15 AM EDT [facility] ([facility]) RBC 2.56(L) 4.20 - 5.70 10*6/uL 06/20/2024 5:15 AM T [facility] ([facility]) Hemoglobin 7.9(L) 13.0 - 17.0 g/dL 06/20/2024 5:15 AM EDT [facility] ([facility]) Hematocrit 25.6(L) 39.0 - 55.0 % 06/20/2024 5:15 AM EDT [facility] ([facility]) MCV 100.0(H) 82.0 - 98.0 fL 06/20/2024 5:15 AM EDT [facility] ([facility]) MCH 30.9 27.0 - 33.0 pg 06/20/2024 5:15 AM EDT [facility] ([facility]) MCHC 30.9(L) 32.0 - 35.0 g/dL 06/20/2024 5:15 AM EDT [facility] ([facility]) RDW 16.1(H) 11.5 - 15.0 % 06/20/2024 5:15 AM EDT [facility] ([facility]) Platelets 249 150 - 400 10*3/uL 06/20/2024 5:15 AM EDT [facility] ([facility]) Blood Venous blood specimen / Unknown Venipuncture / Unknown 06/20/2024 4:11 AM EDT 06/20/2024 5:03 AM EDT us Juan José Lozano MD LAB BLOOD ORDERABLES Final Result [facility] ([facility]) [address] [place], [place] [id number] documented in this encounter Visit Diagnoses Not on filedocumented in this encounter
--- OUTSIDE RECORDS SUMMARY | 2025-02-28 13:05 | XMS_ITS | Encounter Summary ---
Author Organization [facility] Address [address] [place] [address] Care Team Providers Care Medical Lead Name Role Phone Unavailable Primary Care Provider Unavailabl e Encounter Details Date Type Department Care Team (Late st Contact Info) Description 07/18/2024 Lab Requisition [facility] Lab [address] [place] [address] Juan José Lozano MD [address] [place] [id number] Respiratory failure, unspecified, unspecified whether with hypoxia or hypercapnia (CMS/HCC) Social History Tobacco Use Types Packs/Day Years Used Date Smoking Tobacco: Never Assessed [place] Safety & Environment Answer Date Rec orded [...] Name Priority Date/Time Associated Diagnosis Comments CBC WITH AUTO DIFFERENTIAL Routine 07/18/2024 4:07 AM EST Respiratory failure, unspecified, unspecified whether with hypoxia or hypercapnia (CMS/HCC) CBC AND DIFFERENTIAL Routine 07/18/2024 4:07 AM EST Respiratory failure, unspecified, unspecified whether with hypoxia or hypercapnia (CMS/HCC) PHOSPHORUS Routine 07/18/2024 4:07 AM EST Respiratory failure, unspecified, unspecified whether with hypoxia or hypercapnia (CMS/HCC) MAGNESIUM Routine 07/18/2024 4:07 AM EST Respiratory failure, unspecified, unspecified whether with hypoxia or hypercapnia (CMS/HCC) BASIC METABOLIC PANEL Routine 07/18/2024 4:07 AM EST Respiratory failure, unspecified, unspecified whether with hypoxia or hypercapnia (CMS/HCC) documented in this encounter Results * (ABNORMAL) CBC auto differential (07/18/2024 4:07 AM EST) Auto WBC 7.64 4.00 - 10.60 10*3/uL 07/18/2024 5:[address] [facility] ([facility]) RBC 3.10(L) 4.20 - 5.70 10*6/uL 07/18/2024 5:[address] [facility] ([facility]) Hemoglobin 9.5(L) 13.0 - 17.0 g/dL 07/18/2024 5:[address] [facility] ([facility]) Hematocrit 30.3(L) 39.0 - 55.0 % 07/18/2024 5:[address] [facility] ([facility]) MCV 97.7 82.0 - 98.0 fL 07/18/2024 5:[address] [facility] ([facility]) MCH 30.6 27.0 - 33.0 pg 07/18/2024 5:[address] [facility] ([facility]) MCHC 31.4(L) 32.0 - 35.0 g/dL 07/18/2024 5:[address] [facility] ([facility]) RDW 15.8(H) 11.5 - 15.0 % 07/18/2024 5:[address] [facility] ([facility]) Neutrophils % 69.1 40.0 - 72.0 % 07/18/2024 5:[address] [facility] ([facility]) Lymphocytes % 16.9(L) 20.0 - 45.0 % 07/18/2024 5:[address] [facility] ([facility]) Monocytes % 7.7 5.0 - 12.0 % 07/18/2024 5:25 AM EST [facility] ([facility]) Eosinophils % 4.8 0.0 - 6.0 % 07/18/2024 5:25 AM EST [facility] ([facility]) Basophils % 0.7 0.0 - 1.0 % 07/18/2024 5:25 AM EST [facility] ([facility]) Neutrophils Absolute 5.28 1.60 - 7.60 10*3/uL 07/18/2024 5:25 AM EST [facility] ([facility]) Lymphocytes Absolute 1.29 1.20 - 4.00 10*3/uL 07/18/2024 5:25 AM EST [facility] ([facility]) Monocytes Absolute 0.59 0.10 - 1.00 10*3/uL 07/18/2024 5:25 AM EST [facility] ([facility]) Eosinophils Absolute 0.37 0.00 - 0.50 10*3/uL 07/18/2024 5:25 AM EST [facility] ([facility]) Basophils Absolute 0.05 0.00 - 0.20 10*3/uL 07/18/2024 5:25 AM EST [facility] ([facility]) Platelets 344 150 - 400 10*3/uL 07/18/2024 5:25 AM EST [facility] ([facility]) nRBC % 0.0 0 % 07/18/2024 5:25 AM EST [facility] ([facility]) Immature Granulocytes % 0.8 0.0 - 1.0 % 07/18/2024 5:25 AM EST [facility] ([facility]) Immature Granulocytes Absolute 0.06 0.00 - 0.20 10*3/uL 07/18/2024 5:[address] [facility] ([facility]) Blood Venous blood specimen / Unknown Venipuncture / Unknown 07/18/2024 4:07 AM EST 07/18/2024 5:00 AM EST us Juan José Lozano MD LAB BLOOD ORDERABLES Final Result [facility] ([facility]) [address] [place] [address] * Phosphorus (07/18/2024 4:07 AM EST) Phosphorus 3.9 2.5 - 5.0 mg/dL 07/18/2024 5:32 AM EST [facility] ([facility]) Blood Venous blood specimen / Unknown Venipuncture / Unknown 07/18/2024 4:07 AM EST 07/18/2024 4:59 AM EST us Juan José Lozano MD LAB BLOOD ORDERABLES Final Result [facility]) [address] [place] [address] * Magnesium (07/18/2024 4:07 AM EST) Pathologist [facility] Magnesium 2.1 1.9 - 2.7 mg/dL 07/18/2024 5:32 AM EST [facility]) Blood Venous blood specimen / Unknown Venipuncture / Unknown 07/18/2024 4:07 AM EST 07/18/2024 4:59 AM EST us Juan José Lozano MD LAB BLOOD ORDERABLES Final Result Performing Organization Address City/[facility]/ZIP Co de Phone Number [facility]) [address] [place] [address] * (ABNORMAL) Basic metabolic panel (07/18/2024 4:07 AM EST) Pathologist [facility] Sodium 135(L) 136 - 145 mmol/L 07/18/2024 5:32 AM EST [facility] ([facility]) Potassium 4.0 3.5 - 5.1 mmol/L 07/18/2024 5:32 AM EST [facility] ([facility]) Chloride 102 98 - 107 mmol/L 07/18/2024 5:32 AM EST [facility] ([facility]) CO2 28 21 - 31 mmol/L 07/18/2024 5:32 AM EST [facility] ([facility]) BUN 26(H) 7 - 25 mg/dL 07/18/2024 5:32 AM EST [facility] ([facility]) Creatinine 0.70 0.70 - 1.30 mg/dL 07/18/2024 5:32 AM EST [facility] ([facility]) Glucose 106(H) 70 - 100 mg/dL 07/18/2024 5:32 AM EST [facility] ([facility]) Calcium 9.4 8.6 - 10.3 mg/dL 07/18/2024 5:32 AM EST [facility] ([facility]) Anion Gap 9 7 - 20 mmol/L 07/18/2024 5:32 AM EST [facility] ([facility]) eGFR 91.4 >60.0 mL/min/1. 73m*2 07/18/2024 5:32 AM EST [facility] ([facility]) Comment:[facility] s estimated glomerular filtration rate [...] any one group of individuals. BUN/Creatinine Ratio 37.1 07/02 5:32 AM EST [facility] ([facility]) Blood Venous blood specimen / Unknown Venipuncture / Unknown 07/18/2024 4:07 AM EST 07/18/2024 4:59 AM EST us Juan José Lozano MD LAB BLOOD ORDERABLES Final Result [facility] ([facility]) [address] [place] [address] documented in this encounter Visit Diagnoses Diagnosis Respiratory failure, unspecified, unspecified whether with hypoxia or hypercapnia (CMS/HCC) documented in this encounter
--- OUTSIDE RECORDS SUMMARY | 2025-02-28 13:05 | XMS_ITS | Encounter Summary ---
Author Organization [facility] Address [address] [place] [address] Care Team Providers Care Truck Loader And Unloader Name Role Phone Unavailable Primary Care Provider Unavailabl e Encounter Details Date Type Department Care Team (Late st Contact Info) Description 06/30/2024 Lab Requisition [facility] Lab [address] [place] [address] Juan José Lozano MD [address] [place] [phone] Social History Tobacco Use Types Packs/Day Years [...] Priority Date/Time Associated Diagnosis Comments CBC Routine 07/05/2024 3:34 AM EST PHOSPHORUS Routine 07/05/2024 3:34 AM EST MAGNESIUM Routine 07/05/2024 3:34 AM EST COMPREHENSIVE METABOLIC PANEL Routine 07/05/2024 3:34 AM EST documented in this encounter Results * Phosphorus (07/05/2024 3:34 AM EST) Phosphorus 3.2 2.5 - 5.0 mg/dL 07/05/2024 6:38 AM EST [facility] ([facility]) Blood Venous blood specimen / Unknown Venipuncture / Unknown 07/05/2024 3:34 AM EST 07/05/2024 5:43 AM EST Juan José Lozano MD LAB BLOOD ORDERABLES Final Result [facility]) [address] [place] [address] * Magnesium (07/05/2024 3:34 AM EST) Pathologist [facility] Magnesium 2.1 1.9 - 2.7 mg/dL 07/05/2024 6:38 AM EST [facility] ([facility]) Blood Venous blood specimen / Unknown Venipuncture / Unknown 07/05/2024 3:34 AM EST 07/05/2024 5:43 AM EST us Juan José Lozano MD LAB BLOOD ORDERABLES Final Result Performing Organization Address City/[facility] Co de Phone Number [facility]) [address] [place] [address] * (ABNORMAL) Comprehensive metabolic panel (07/05/2024 3:34 AM EST) Pathologist [facility] Sodium 137 136 - 145 mmol/L 07/05/2024 6:38 AM EST [facility] ([facility]) Potassium 4.6 3.5 - 5.1 mmol/L 07/05/2024 6:38 AM EST [facility] ([facility]) Chloride 101 98 - 107 mmol/L 07/05/2024 6:38 AM EST [facility] ([facility]) CO2 34(H) 21 - 31 mmol/L 07/05/2024 6:38 AM EST [facility] ([facility]) Anion Gap 7 7 - 20 mmol/L 07/05/2024 6:38 AM EST [facility] ([facility]) BUN 45(H) 7 - 25 mg/dL 07/05/2024 6:38 AM [facility] ([facility]) Creatinine 0.99 0.70 - 1.30 mg/dL 07/05/2024 6:38 AM [facility] ([facility]) BUN/Creatinine Ratio 45.5 12/2023 6:38 AM [facility] ([facility]) Glucose 105(H) 70 - 100 mg/dL 07/05/2024 6:38 AM [facility] ([facility]) Calcium 9.5 8.6 - 10.3 mg/dL 07/05/2024 6:38 AM [facility] ([facility]) AST 21 13 - 39 U/L 07/05/2024 6:38 AM [facility] ([facility]) ALT (SGPT) 15 7 - 52 U/L 07/05/2024 6:38 AM [facility] ([facility]) Alkaline Phosphatase 108(H) 34 - 104 U/L 07/05/2024 6:38 AM [facility] ([facility]) Total Protein 6.4 6.0 - 8.3 g/dL 07/05/2024 6:38 AM [facility] ([facility]) Albumin 3.1(L) 3.5 - 5.7 g/dL 07/05/2024 6:38 AM [facility] ([facility]) Total Bilirubin 0.2(L) 0.3 - 1.0 mg/dL 07/05/2024 6:38 AM [facility] ([facility]) eGFR 75.6 >60.0 mL/min/1. 73m*2 07/05/2024 6:38 AM [facility] ([facility]) Comment:[facility] estimated glomerular filtration rate (eGFR) [...] blood specimen / Unknown Venipuncture / Unknown 07/05/2024 3:34 AM EST 07/05/2024 5:43 AM EST us Juan José Lozano MD LAB BLOOD ORDERABLES Final Result [facility] ([facility]) [address] [place] [address] * (ABNORMAL) CBC (07/05/2024 3:34 AM EST) Auto WBC 7.91 4.00 - 10.60 10*3/uL 07/05/2024 6:11 AM EST [facility] ([facility]) RBC 2.79(L) 4.20 - 5.70 10*6/uL 07/05/2024 6:11 AM [facility] ([facility]) Hemoglobin 8.5(L) 13.0 - 17.0 g/dL 07/05/2024 6:11 AM [facility] ([facility]) Hematocrit 28.1(L) 39.0 - 55.0 % 07/05/2024 6:11 AM [facility] ([facility]) MCV 100.7(H) 82.0 - 98.0 fL 07/05/2024 6:11 AM [facility] ([facility]) MCH 30.5 27.0 - 33.0 pg 07/05/2024 6:11 AM [facility] ([facility]) MCHC 30.2(L) 32.0 - 35.0 g/dL 07/05/2024 6:11 AM [facility] ([facility]) RDW 15.9(H) 11.5 - 15.0 % 07/05/2024 6:11 AM [facility] ([facility]) Platelets 281 150 - 400 10*3/uL 07/05/2024 6:11 AM [facility] ([facility]) Blood Venous blood specimen / Unknown Venipuncture / Unknown 07/05/2024 3:34 AM EST 07/05/2024 5:47 AM EST us Juan José Lozano MD LAB BLOOD ORDERABLES Final Result [facility] ([facility]) [address] [place] [address] documented in this encounter Visit Diagnoses Not on filedocumented in this encounter
--- OUTSIDE RECORDS SUMMARY | 2025-02-28 13:05 | XMS_ITS | Encounter Summary ---
Author Organization [facility] Address [address] [place] [address] Care Team Providers Care Thermograph Operator Name Role Phone Unavailable Primary Care Provider Unavailabl e Encounter Details Date Type Department Care Team (Late st Contact Info) Description 07/10/2024 Lab Requisition [facility] Lab [address] [place] [address] Juan José Lozano MD [address] [place] [phone] Social History Tobacco Use Types Packs/Day Years Used Date Smoking Tobacco: Never Assessed [place] Safety & Environment Answer Date Rec orded [...] Priority Date/Time Associated Diagnosis Comments CBC Routine 07/12/2024 4:09 AM EST PHOSPHORUS Routine 07/12/2024 4:09 AM EST MAGNESIUM Routine 07/12/2024 4:09 AM EST COMPREHENSIVE METABOLIC PANEL Routine 07/12/2024 4:09 AM EST documented in this encounter Results * Phosphorus (07/12/2024 4:09 AM EST) Phosphorus 3.1 2.5 - 5.0 mg/dL 07/12/2024 5:06 AM EST [facility] ([facility]) Blood Venous blood specimen / Unknown Venipuncture / Unknown 07/12/2024 4:09 AM EST 07/12/2024 4:09 AM EST Juan José Lozano MD LAB BLOOD ORDERABLES Final Result [facility]) [address] [place] [address] * Magnesium (07/12/2024 4:09 AM EST) [facility] Magnesium 1.9 1.9 - 2.7 mg/dL 07/12/2024 5:06 AM EST [facility] ([facility]) Blood Venous blood specimen / Unknown Venipuncture / Unknown 07/12/2024 4:09 AM EST 07/12/2024 4:09 AM EST Juan José Lozano MD LAB BLOOD ORDERABLES Final Result Performing Organization Address City/[facility] Co de Phone Number [facility]) [address] [place] [phone] * (ABNORMAL) Comprehensive metabolic panel (07/12/2024 4:09 AM EST) [facility] Sodium 132(L) 136 - 145 mmol/L 07/12/2024 5:06 AM EST [facility] ([facility]) Potassium 4.6 3.5 - 5.1 mmol/L 07/12/2024 5:06 AM EST [facility] ([facility]) Chloride 100 98 - 107 mmol/L 07/12/2024 5:06 AM EST [facility] ([facility]) CO2 25 21 - 31 mmol/L 07/12/2024 5:06 AM EST [facility] ([facility]) Anion Gap 12 7 - 20 mmol/L 07/12/2024 5:[address] [facility] ([facility]) BUN 47(H) 7 - 25 mg/dL 07/12/2024 5:[address] [facility] ([facility]) Creatinine 0.62(L) 0.70 - 1.30 mg/dL 07/12/2024 5:[address] [facility] ([facility]) BUN/Creatinine Ratio 75.8 07/02 5:[address] [facility] ([facility]) Glucose 99 70 - 100 mg/dL 07/12/2024 5:[address] [facility] ([facility]) Calcium 9.9 8.6 - 10.3 mg/dL 07/12/2024 5:[address] [facility] ([facility]) AST 19 13 - 39 U/L 07/12/2024 5:06 AM [facility] ([facility]) ALT (SGPT) 13 7 - 52 U/L 07/12/2024 5:[address] [facility] ([facility]) Alkaline Phosphatase 112(H) 34 - 104 U/L 07/12/2024 5:[address] [facility] ([facility]) Total Protein 7.4 6.0 - 8.3 g/dL 07/12/2024 5:[address] [facility] ([facility]) Albumin 3.7 3.5 - 5.7 g/dL 07/12/2024 5:06 AM [facility] ([facility]) Total Bilirubin 0.3 0.3 - 1.0 mg/dL 07/12/2024 5:[address] [facility] ([facility]) eGFR 94.8 >60.0 mL/min/1. 73m*2 07/12/2024 5:[address] [facility] ([facility]) Comment:[facility] s estimated glomerular filtration rate [...] blood specimen / Unknown Venipuncture / Unknown 07/12/2024 4:09 AM EST 07/12/2024 4:09 AM EST us Juan José Lozano MD LAB BLOOD ORDERABLES Final Result [facility] ([facility]) [address] [place] [address] * (ABNORMAL) CBC (07/12/2024 4:09 AM EST) Auto WBC 7.80 4.00 - 10.60 10*3/uL 07/12/2024 4:[address] [facility] ([facility]) RBC 3.15(L) 4.20 - 5.70 10*6/uL 07/12/2024 4:[address] [facility] ([facility]) Hemoglobin 9.6(L) 13.0 - 17.0 g/dL 07/12/2024 4:[address] [facility] ([facility]) Hematocrit 32.2(L) 39.0 - 55.0 % 07/12/2024 4:[address] [facility] ([facility]) MCV 102.2(H) 82.0 - 98.0 fL 07/12/2024 4:[address] [facility] ([facility]) MCH 30.5 27.0 - 33.0 pg 07/12/2024 4:[address] [facility] ([facility]) MCHC 29.8(L) 32.0 - 35.0 g/dL 07/12/2024 4:[address] [facility] ([facility]) RDW 16.0(H) 11.5 - 15.0 % 07/12/2024 4:[address] [facility] ([facility]) Platelets 263 150 - 400 10*3/uL 07/12/2024 4:[address] [facility] ([facility]) Blood Venous blood specimen / Unknown Venipuncture / Unknown 07/12/2024 4:09 AM EST 07/12/2024 4:09 AM EST us Juan José Lozano MD LAB BLOOD ORDERABLES Final Result [facility] ([facility]) [address] [place] [address] documented in this encounter Visit Diagnoses Not on filedocumented in this encounter
--- OUTSIDE RECORDS SUMMARY | 2025-02-28 13:05 | XMS_ITS | Encounter Summary ---
Author Organization [facility] Address [address] [place] [address] Care Team Providers Care Visiting Nurse Name Role Phone Unavailable Primary Care Provider Unavailabl e Encounter Details Date Type Department Care Team (Late st Contact Info) Description 07/08/2024 Lab Requisition [facility] Lab [address] [place] [address] Juan José Lozano MD [address] [place] [phone] Social History Tobacco Use Types Packs/Day Years Used Date Smoking Tobacco: Never Assessed [place] Safety & Environment Answer Date Rec orded [...] Priority Date/Time Associated Diagnosis Comments CBC Routine 07/09/2024 3:00 AM EST TRIGLYCERIDES Routine 07/09/2024 3:00 AM EST PHOSPHORUS Routine 07/09/2024 3:00 AM EST MAGNESIUM Routine 07/09/2024 3:00 AM EST COMPREHENSIVE METABOLIC PANEL Routine 07/09/2024 3:00 AM EST documented in this encounter Results * Triglycerides (07/09/2024 3:00 AM EST) Triglycerides 119 40 - 149 mg/dL 07/09/2024 5:51 AM EST [facility] ([facility]) Comment: TRIGLYCERIDE REFERENCE RANGE: 20 YEARS AND OLDER CARDIOVASCULAR RISK LESS THAN 150 mg/dL LOW RISK 150 TO 199 mg/dL BORDERLINE RISK 200 mg/dL AND GREATER HIGH RISK Fasting? Unknown 07/09/2024 5:51 AM EST [facility] ([facility]) Blood Venous blood specimen / Unknown Venipuncture / Unknown 07/09/2024 3:00 AM EST 07/09/2024 4:40 AM EST Juan José Lozano MD LAB BLOOD ORDERABLES Final Result [facility]) [address] [phone] * Phosphorus (07/09/2024 3:00 AM EST) Phosphorus 3.2 2.5 - 5.0 mg/dL 07/09/2024 5:48 AM EST [facility] ([facility]) Blood Venous blood specimen / Unknown Venipuncture / Unknown 07/09/2024 3:00 AM EST 07/09/2024 4:40 AM EST us Juan José Lozano MD LAB BLOOD ORDERABLES Final Result [facility]) [address] [place], [place] [phone] * Magnesium (07/09/2024 3:00 AM EST) Magnesium 2.0 1.9 - 2.7 mg/dL 07/09/2024 5:48 AM EST [facility]) Blood Venous blood specimen / Unknown Venipuncture / Unknown 07/09/2024 3:00 AM EST 07/09/2024 4:40 AM EST us Juan José Lozano MD LAB BLOOD ORDERABLES Final Result [facility] ([facility]) [address] [place] [address] * (ABNORMAL) Comprehensive metabolic panel (07/09/2024 3:00 AM EST) Sodium 134(L) 136 - 145 mmol/L 07/09/2024 5:48 AM EST [facility] ([facility]) Potassium 4.8 3.5 - 5.1 mmol/L 07/09/2024 5:48 AM EST [facility] ([facility]) Chloride 101 98 - 107 mmol/L 07/09/2024 5:48 AM EST [facility] ([facility]) CO2 28 21 - 31 mmol/L 07/09/2024 5:48 AM [facility] ([facility]) Anion Gap 10 7 - 20 mmol/L 07/09/2024 5:48 AM [facility] ([facility]) BUN 39(H) 7 - 25 mg/dL 07/09/2024 5:48 AM EST [facility] ([facility]) Creatinine 0.70 0.70 - 1.30 mg/dL 07/09/2024 5:48 AM EST [facility] ([facility]) BUN/Creatinine Ratio 55.7 04/2024 5:48 AM EST [facility] ([facility]) Glucose 87 70 - 100 mg/dL 07/09/2024 5:48 AM [facility] ([facility]) Calcium 9.2 8.6 - 10.3 mg/dL 07/09/2024 5:48 AM [facility] ([facility]) AST 17 13 - 39 U/L 07/09/2024 5:48 AM [facility] ([facility]) ALT (SGPT) 15 7 - 52 U/L 07/09/2024 5:48 AM [facility] ([facility]) Alkaline Phosphatase 111(H) 34 - 104 U/L 07/09/2024 5:48 AM [facility] ([facility]) Total Protein 6.5 6.0 - 8.3 g/dL 07/09/2024 5:48 AM EST [facility] ([facility]) Albumin 3.3(L) 3.5 - 5.7 g/dL 07/09/2024 5:48 AM EST [facility] ([facility]) Total Bilirubin 0.3 0.3 - 1.0 mg/dL 07/09/2024 5:48 AM EST [facility] ([facility]) eGFR 91.4 >60.0 mL/min/1. 73m*2 07/09/2024 5:48 AM EST [facility] ([facility]) Comment:[facility] s estimated glomerular filtration rate (eGFR) [...] blood specimen / Unknown Venipuncture / Unknown 07/09/2024 3:00 AM EST 07/09/2024 4:40 AM EST us Juan José Lozano MD LAB BLOOD ORDERABLES Final Result [facility] ([facility]) [address] [place] [address] * (ABNORMAL) CBC (07/09/2024 3:00 AM EST) Auto WBC 6.87 4.00 - 10.60 10*3/uL 07/09/2024 5:33 AM EST [facility] ([facility]) RBC 3.03(L) 4.20 - 5.70 10*6/uL 07/09/2024 5:33 AM EST [facility] ([facility]) Hemoglobin 9.3(L) 13.0 - 17.0 g/dL 07/09/2024 5:33 AM EST [facility] ([facility]) Hematocrit 30.2(L) 39.0 - 55.0 % 07/09/2024 5:33 AM EST [facility] ([facility]) MCV 99.7(H) 82.0 - 98.0 fL 07/09/2024 5:33 AM EST [facility] ([facility]) MCH 30.7 27.0 - 33.0 pg 07/09/2024 5:33 AM EST [facility] ([facility]) MCHC 30.8(L) 32.0 - 35.0 g/dL 07/09/2024 5:33 AM EST [facility] ([facility]) RDW 15.6(H) 11.5 - 15.0 % 07/09/2024 5:33 AM EST [facility] ([facility]) Platelets 259 150 - 400 10*3/uL 07/09/2024 5:33 AM EST [facility] ([facility]) Blood Venous blood specimen / Unknown Venipuncture / Unknown 07/09/2024 3:00 AM EST 07/09/2024 4:40 AM EST us Juan José Lozano MD LAB BLOOD ORDERABLES Final Result [facility] ([facility]) [address] [place] [address] documented in this encounter Visit Diagnoses Not on filedocumented in this encounter
--- OUTSIDE RECORDS SUMMARY | 2025-02-28 13:05 | XMS_ITS | Encounter Summary ---
Author Organization [facility] Address [address] [place] [address] Care Team Providers Care Ladies Underwear Operator Name Role Phone Unavailable Primary Care Provider Unavailabl e Encounter Details Date Type Department Care Team (Late st Contact Info) Description 06/19/2024 Lab Requisition [facility] Hospital Lab [address] [place] [address] Juan José Lozano MD [address] [place] [phone] Respiratory failure, unspecified, unspecified whether with hypoxia or hypercapnia (CMS/HCC) Social History Tobacco Use Types Packs/Day Years Used Date Smoking Tobacco: Never Assessed CT Safety & Environment Answer Date Rec orded [...] Diagnosis Comments CBC WITH AUTO DIFFERENTIAL Routine 06/23/2024 5:00 AM EDT Respiratory failure, unspecified, unspecified whether with hypoxia or hypercapnia (CMS/HCC) CBC AND DIFFERENTIAL Routine 06/23/2024 5:00 AM EDT MAGNESIUM Routine 06/23/2024 5:00 AM EDT Respiratory failure, unspecified, unspecified whether with hypoxia or hypercapnia (CMS/HCC) HEPATIC FUNCTION PANEL Routine 5:00 AM EDT Respiratory failure, unspecified, unspecified whether with hypoxia or hypercapnia (CMS/HCC) COMPREHENSIVE METABOLIC PANEL Routine 06/23/2024 5:00 AM EDT Respiratory failure, unspecified, unspecified whether with hypoxia or hypercapnia (CMS/HCC) documented in this encounter Results * (ABNORMAL) CBC auto differential (06/23/2024 5:00 AM EDT) Auto WBC 6.01 4.00 - 10.60 10*3/uL 06/23/2024 5:[address] [facility] ([facility]) RBC 2.66(L) 4.20 - 5.70 10*6/uL 06/23/2024 5:[address] [facility] ([facility]) Hemoglobin 8.1(L) 13.0 - 17.0 g/dL 06/23/2024 5:[address] [facility] Hematocrit 24.9(L) 39.0 - 55.0 % 06/23/2024 5:[address] [facility] ([facility]) MCV 93.6 82.0 - 98.0 fL 06/23/2024 5:[address] [facility] ([facility]) MCH 30.5 27.0 - 33.0 pg 06/23/2024 5:[address] [facility] ([facility]) MCHC 32.5 32.0 - 35.0 g/dL 06/23/2024 5:[address] [facility] ([facility]) RDW 15.4(H) 11.5 - 15.0 % 06/23/2024 5:[address] [facility] ([facility]) Neutrophils % 66.1 40.0 - 72.0 % 06/23/2024 5:[address] [facility] ([facility]) Lymphocytes % 14.3(L) 20.0 - 45.0 % 06/23/2024 5:[address] [facility] ([facility]) Monocytes % 6.7 5.0 - 12.0 % 06/23/2024 5:[address] [facility] ([facility]) Eosinophils % 12.1(H) 0.0 - 6.0 % 06/23/2024 5:[address] [facility] ([facility]) Basophils % 0.3 0.0 - 1.0 % 06/23/2024 5:[address] [facility] ([facility]) Neutrophils Absolute 3.97 1.60 - 7.60 10*3/uL 06/23/2024 5:[address] [facility] ([facility]) Lymphocytes Absolute 0.86(L) 1.20 - 4.00 10*3/uL 06/23/2024 5:[address] [facility] ([facility]) Monocytes Absolute 0.40 0.10 - 1.00 10*3/uL 06/23/2024 5:[address] [facility] ([facility]) Eosinophils Absolute 0.73(H) 0.00 - 0.50 10*3/uL 06/23/2024 5:[address] [facility] ([facility]) Basophils Absolute 0.02 0.00 - 0.20 10*3/uL 06/23/2024 5:[address] [facility] ([facility]) Platelets 253 150 - 400 10*3/uL 06/23/2024 5:[address] [facility] ([facility]) nRBC % 0.0 0 % 06/23/2024 5:48 AM EDT [facility] ([facility]) Immature Granulocytes % 0.5 0.0 - 1.0 % 06/23/2024 5:[address] [facility] ([facility]) Immature Granulocytes Absolute 0.03 0.00 - 0.20 10*3/uL 06/23/2024 5:[address] [facility] ([facility]) Blood Venous blood specimen / Unknown Arterial Line / Unknown 06/23/2024 5:00 AM EDT 06/23/2024 5:25 AM EDT us Juan José Lozano MD LAB BLOOD ORDERABLES Final Result [facility] ([facility]) [address] [place] [address] * (ABNORMAL) Magnesium (06/23/2024 5:00 AM EDT) Pathologist [facility] Magnesium 1.6(L) 1.9 - 2.7 mg/dL 06/23/2024 5:[address] [facility] ([facility]) Blood Venous blood specimen / Unknown Arterial Line / Unknown 06/23/2024 5:00 AM EDT 06/23/2024 5:25 AM EDT us Juan José Lozano MD LAB BLOOD ORDERABLES Final Result [facility] ([facility]) [address] [place] [address] * (ABNORMAL) Comprehensive metabolic panel (06/23/2024 5:00 AM EDT) Pathologist [facility] Sodium 134(L) 136 - 145 mmol/L 06/23/2024 5:[address] [facility] ([facility]) Potassium 3.4(L) 3.5 - 5.1 mmol/L 06/23/2024 5:[address] [facility] ([facility]) Chloride 101 98 - 107 mmol/L 06/23/2024 5:[address] [facility] ([facility]) CO2 28 21 - 31 mmol/L 06/23/2024 5:[address] [facility] ([facility]) Anion Gap 8 7 - 20 mmol/L 06/23/2024 5:[address] [facility] ([facility]) BUN 10 7 - 25 mg/dL 06/23/2024 5:[address] [facility] ([facility]) Creatinine 0.55(L) 0.70 - 1.30 mg/dL 06/23/2024 5:[address] [facility] ([facility]) BUN/Creatinine Ratio 18.2 06/02 5:[address] [facility] ([facility]) Glucose 102(H) 70 - 100 mg/dL 06/23/2024 5:[address] [facility] ([facility]) Calcium 8.3(L) 8.6 - 10.3 mg/dL 06/23/2024 5:[address] [facility] ([facility]) AST 12(L) 13 - 39 U/L 06/23/2024 5:[address] [facility] ([facility]) ALT (SGPT) 16 7 - 52 U/L 06/23/2024 5:[address] [facility] ([facility]) Alkaline Phosphatase 106(H) 34 - 104 U/L 06/23/2024 5:[address] [facility] ([facility]) Total Protein 5.5(L) 6.0 - 8.3 g/dL 06/23/2024 5:[address] [facility] ([facility]) Albumin 2.7(L) 3.5 - 5.7 g/dL 06/23/2024 5:[address] [facility] ([facility]) Total Bilirubin 0.4 0.3 - 1.0 mg/dL 06/23/2024 5:[address] [facility] ([facility]) eGFR 98.3 >60.0 mL/min/1. 73m*2 06/23/2024 5:[address] [facility] ([facility]) Comment:The [facility] s estimated glomerular filtration rate (eGFR) will [...] individuals. Blood Venous blood specimen / Unknown Arterial Line / Unknown 06/23/2024 5:00 AM EDT 06/23/2024 5:25 AM EDT us Juan José Lozano MD LAB BLOOD ORDERABLES Final Result [facility] ([facility]) [address] [facility] [place], [place] [id number] * (ABNORMAL) Hepatic function panel (06/23/2024 5:00 AM EDT) Total Bilirubin 0.4 0.3 - 1.0 mg/dL 06/23/2024 5:[address] [facility] ([facility]) Bilirubin, Direct 0.2 0 - 0.2 mg/dL 06/23/2024 5:[address] [facility] ([facility]) Alkaline Phosphatase 106(H) 34 - 104 U/L 06/23/2024 5:[address] [facility] ([facility]) AST 12(L) 13 - 39 U/L 06/23/2024 5:[address] [facility] ([facility]) ALT (SGPT) 16 7 - 52 U/L 06/23/2024 5:[address] [facility] ([facility]) Total Protein 5.5(L) 6.0 - 8.3 g/dL 06/23/2024 5:[address] [facility] ([facility]) Albumin 2.7(L) 3.5 - 5.7 g/dL 06/23/2024 5:[address] [facility] ([facility]) Blood Venous blood specimen / Unknown Arterial Line / Unknown 06/23/2024 5:00 AM EDT 06/23/2024 5:25 AM EDT us Juan José Lozano MD LAB BLOOD ORDERABLES Final Result [facility] ([facility]) [address] [place] [address] documented in this encounter Visit Diagnoses Diagnosis Respiratory failure, unspecified, unspecified whether with hypoxia or hypercapnia (CMS/HCC) documented in this encounter
--- OUTSIDE RECORDS SUMMARY | 2025-02-28 13:05 | XMS_ITS | Encounter Summary ---
Author Organization [facility] Address [address] [place] [address] Care Team Providers Care Grants Assistant Name Role Phone Unavailable Primary Care Provider Unavailabl e Encounter Details Date Type Department Care Team (Late st Contact Info) Description 07/04/2024 Lab Requisition [facility] Hospital Lab [address] [place] [address] Juan José Lozano MD [address] [place] [phone] Social History Tobacco Use Types Packs/Day Years Used Date Smoking Tobacco: Never Assessed [place] Safety & Environment Answer Date Rec orded [...] Priority Date/Time Associated Diagnosis Comments CBC Routine 07/07/2024 5:30 AM EST PHOSPHORUS Routine 07/07/2024 5:30 AM EST MAGNESIUM Routine 07/07/2024 5:30 AM EST COMPREHENSIVE METABOLIC PANEL Routine 07/07/2024 5:30 AM EST documented in this encounter Results * Phosphorus (07/07/2024 5:30 AM EST) Phosphorus 3.4 2.5 - 5.0 mg/dL 07/07/2024 8:01 AM EST [facility] ([facility]) Blood Venous blood specimen / Unknown Venipuncture / Unknown 07/07/2024 5:30 AM EST 07/07/2024 6:56 AM EST Juan José Lozano MD LAB BLOOD ORDERABLES Final Result [facility]) [address] [place] [phone] * Magnesium (07/07/2024 5:30 AM EST) Pathologist [facility] Magnesium 2.0 1.9 - 2.7 mg/dL 07/07/2024 8:01 AM [facility]) Blood Venous blood specimen / Unknown Venipuncture / Unknown 07/07/2024 5:30 AM EST 07/07/2024 6:56 AM EST us Juan José Lozano MD LAB BLOOD ORDERABLES Final Result Performing Organization Address City/[facility] Co de Phone Number [facility]) [address] [place] [phone] * (ABNORMAL) Comprehensive metabolic panel (07/07/2024 5:30 AM EST) Pathologist [facility] Sodium 136 136 - 145 mmol/L 07/07/2024 8:01 AM [facility]) Potassium 4.8 3.5 - 5.1 mmol/L 07/07/2024 8:01 AM [facility] ([facility]) Chloride 101 98 - 107 mmol/L 07/07/2024 8:01 AM EST [facility] ([facility]) CO2 34(H) 21 - 31 mmol/L 07/07/2024 8:01 AM [facility]) Anion Gap 6(L) 7 - 20 mmol/L 07/07/2024 8:01 AM [facility]) BUN 42(H) 7 - 25 mg/dL 07/07/2024 8:01 AM [facility] ([facility]) Creatinine 0.67(L) 0.70 - 1.30 mg/dL 07/07/2024 8:01 AM [facility] ([facility]) BUN/Creatinine Ratio 62.7 01/2024 8:01 AM [facility] ([facility]) Glucose 90 70 - 100 mg/dL 07/07/2024 8:01 AM [facility] ([facility]) Calcium 9.4 8.6 - 10.3 mg/dL 07/07/2024 8:01 AM [facility] ([facility]) AST 18 13 - 39 U/L 07/07/2024 8:01 AM [facility] ([facility]) ALT (SGPT) 14 7 - 52 U/L 07/07/2024 8:01 AM [facility] ([facility]) Alkaline Phosphatase 106(H) 34 - 104 U/L 07/07/2024 8:01 AM [facility] ([facility]) Total Protein 6.5 6.0 - 8.3 g/dL 07/07/2024 8:01 AM [facility] ([facility]) Albumin 3.1(L) 3.5 - 5.7 g/dL 07/07/2024 8:01 AM [facility] ([facility]) Total Bilirubin 0.3 0.3 - 1.0 mg/dL 07/07/2024 8:01 AM [facility] ([facility]) eGFR 92.6 >60.0 mL/min/1. 73m*2 07/07/2024 8:01 AM [facility] ([facility]) Comment:[facility] s estimated glomerular filtration rate (eGFR) [...] blood specimen / Unknown Venipuncture / Unknown 07/07/2024 5:30 AM EST 07/07/2024 6:56 AM EST us Juan José Lozano MD LAB BLOOD ORDERABLES Final Result [facility] ([facility]) [address] [place] [address] * (ABNORMAL) CBC (07/07/2024 5:30 AM EST) Auto WBC 5.28 4.00 - 10.60 10*3/uL 07/07/2024 7:42 AM [facility] ([facility]) RBC 2.82(L) 4.20 - 5.70 10*6/uL 07/07/2024 7:42 AM [facility] Hemoglobin 8.5(L) 13.0 - 17.0 g/dL 07/07/2024 7:42 AM [facility] ([facility]) Hematocrit 27.8(L) 39.0 - 55.0 % 07/07/2024 7:42 AM [facility] ([facility]) MCV 98.6(H) 82.0 - 98.0 fL 07/07/2024 7:42 AM [facility] ([facility]) MCH 30.1 27.0 - 33.0 pg 07/07/2024 7:42 AM [facility] ([facility]) MCHC 30.6(L) 32.0 - 35.0 g/dL 07/07/2024 7:42 AM [facility] ([facility]) RDW 15.7(H) 11.5 - 15.0 % 07/07/2024 7:42 AM [facility] ([facility]) Platelets 271 150 - 400 10*3/uL 07/07/2024 7:42 AM [facility] ([facility]) Blood Venous blood specimen / Unknown Venipuncture / Unknown 07/07/2024 5:30 AM EST 07/07/2024 6:56 AM EST us Juan José Lozano MD LAB BLOOD ORDERABLES Final Result [facility] ([place]) [address] [place] [address] documented in this encounter Visit Diagnoses Not on filedocumented in this encounter
--- OUTSIDE RECORDS SUMMARY | 2025-02-28 13:05 | XMS_ITS | Encounter Summary ---
Author Organization [facility] Address [address] [place] [address] Care Team Providers Care Regrinder Name Role Phone Unavailable Primary Care Provider Unavailabl e Encounter Details Date Type Department Care Team (Late st Contact Info) Description 06/18/2024 Lab Requisition [facility] Lab [address] [place] [address] Juan José Lozano MD [address] [place] [id number] Social History Tobacco Use Types Packs/Day Years Used Date Smoking Tobacco: Never Assessed [place] Safety & Environment Answer Date Rec orded [...] Priority Date/Time Associated Diagnosis Comments CBC Routine 06/21/2024 3:50 AM EDT BASIC METABOLIC PANEL Routine 06/21/2024 3:50 AM EDT documented in this encounter Results * (ABNORMAL) Basic metabolic panel (06/21/2024 3:50 AM EDT) Sodium 134(L) 136 - 145 mmol/L 06/21/2024 6:36 AM EDT [facility] ([facility]) Potassium 3.6 3.5 - 5.1 mmol/L 06/21/2024 6:36 AM EDT [facility] ([facility]) Chloride 100 98 - 107 mmol/L 06/21/2024 6:36 AM EDT [facility] ([facility]) CO2 29 21 - 31 mmol/L 06/21/2024 6:36 AM EDT [facility] ([facility]) BUN 21 7 - 25 mg/dL 06/21/2024 6:36 AM EDT [facility] ([facility]) Creatinine 0.52(L) 0.70 - 1.30 mg/dL 06/21/2024 6:36 AM EDT [facility] ([facility]) Glucose 95 70 - 100 mg/dL 06/21/2024 6:36 AM EDT [facility] ([facility]) Calcium 8.7 8.6 - 10.3 mg/dL 06/21/2024 6:36 AM EDT [facility] ([facility]) Anion Gap 9 7 - 20 mmol/L 06/21/2024 6:36 AM T [facility] ([facility]) eGFR 100.0 >60.0 mL/min/1. 73m*2 06/21/2024 6:36 AM EDT [facility] ([facility]) Comment:The [facility] s estimated glomerular filtration rate (eGFR) will [...] any one group of individuals. BUN/Creatinine Ratio 40.4 06/02 6:36 AM EDT [facility] ([facility]) Blood Venous blood specimen / Unknown Venipuncture / Unknown 06/21/2024 3:50 AM EDT 06/21/2024 5:37 AM EDT us Juan José Lozano MD LAB BLOOD ORDERABLES Final Result [facility] ([facility]) [address] [place], [place] [id number] * (ABNORMAL) CBC (06/21/2024 3:50 AM EDT) Auto WBC 5.94 4.00 - 10.60 10*3/uL 06/21/2024 5:56 AM EDT [facility] ([facility]) RBC 2.84(L) 4.20 - 5.70 10*6/uL 06/21/2024 5:56 AM EDT [facility] ([facility]) Hemoglobin 8.9(L) 13.0 - 17.0 g/dL 06/21/2024 5:56 AM EDT [facility] ([facility]) Hematocrit 28.0(L) 39.0 - 55.0 % 06/21/2024 5:56 AM EDT [facility] ([facility]) MCV 98.6(H) 82.0 - 98.0 fL 06/21/2024 5:56 AM EDT [facility] ([facility]) MCH 31.3 27.0 - 33.0 pg 06/21/2024 5:56 AM EDT [facility] ([facility]) MCHC 31.8(L) 32.0 - 35.0 g/dL 06/21/2024 5:56 AM EDT [facility] ([facility]) RDW 15.5(H) 11.5 - 15.0 % 06/21/2024 5:56 AM EDT [facility] ([facility]) Platelets 271 150 - 400 10*3/uL 06/21/2024 5:56 AM EDT [facility] ([facility]) Blood Venous blood specimen / Unknown Venipuncture / Unknown 06/21/2024 3:50 AM EDT 06/21/2024 5:37 AM EDT us Juan José Lozano MD LAB BLOOD ORDERABLES Final Result [facility] ([facility]) [address] [place] [address] documented in this encounter Visit Diagnoses Not on filedocumented in this encounter
--- OUTSIDE RECORDS SUMMARY | 2025-02-28 13:05 | XMS_ITS | Encounter Summary ---
Author Organization [facility] Address [address] [address] Care Team Providers Care Medical Transcription Radiology Name Role Phone Unavailable Primary Care Provider Unavailabl e Encounter Details Date Type Department Care Team (Late st Contact Info) Description 06/28/2024 Lab Requisition [facility] Lab [address] [place] [address] Juan José Lozano MD [address] [place] [id number] Social History Tobacco Use Types Packs/Day Years Used Date Smoking Tobacco: Never Assessed [place] Safety & Environment Answer Date Rec orded [...] Priority Date/Time Associated Diagnosis Comments CBC Routine 07/02/2024 5:00 AM EDT TRIGLYCERIDES Routine 07/02/2024 5:00 AM EDT PHOSPHORUS Routine 07/02/2024 5:00 AM EDT MAGNESIUM Routine 07/02/2024 5:00 AM EDT COMPREHENSIVE METABOLIC PANEL Routine 07/02/2024 5:00 AM EDT documented in this encounter Results * Triglycerides (07/02/2024 5:00 AM EDT) Triglycerides 126 40 - 149 mg/dL 07/02/2024 8:47 AM EDT [facility] ([facility]) Comment: TRIGLYCERIDE REFERENCE RANGE: 20 YEARS AND OLDER CARDIOVASCULAR RISK LESS THAN 150 mg/dL LOW RISK 150 TO 199 mg/dL BORDERLINE RISK 200 mg/dL AND GREATER HIGH RISK Fasting? UNKNOWN 07/02/2024 8:47 AM EDT [facility] ([facility]) Blood Venous blood specimen / Unknown Venipuncture / Unknown 07/02/2024 5:00 AM EDT 07/02/2024 7:30 AM EDT Juan José Lozano MD LAB BLOOD ORDERABLES Final Result Performing Organization Address City/[facility]/ZIP Co de Phone Number [facility]) [address] [phone] * Phosphorus (07/02/2024 5:00 AM EDT) Phosphorus 3.2 2.5 - 5.0 mg/dL 07/02/2024 8:44 AM EDT [facility]) Blood Venous blood specimen / Unknown Venipuncture / Unknown 07/02/2024 5:00 AM EDT 07/02/2024 7:30 AM EDT Juan José Lozano MD LAB BLOOD ORDERABLES Final Result [facility]) [address] [place] [address] * Magnesium (07/02/2024 5:00 AM EDT) Magnesium 2.0 1.9 - 2.7 mg/dL 07/02/2024 8:44 AM EDT [facility]) Blood Venous blood specimen / Unknown Venipuncture / Unknown 07/02/2024 5:00 AM EDT 07/02/2024 7:30 AM EDT us Juan José Lozano MD LAB BLOOD ORDERABLES Final Result [facility] ([facility]) [address] [place], [place] [phone] * (ABNORMAL) Comprehensive metabolic panel (07/02/2024 5:00 AM EDT) Sodium 135(L) 136 - 145 mmol/L 07/02/2024 8:44 AM EDT [facility] ([facility]) Potassium 4.4 3.5 - 5.1 mmol/L 07/02/2024 8:44 AM EDT [facility] ([facility]) Chloride 100 98 - 107 mmol/L 07/02/2024 8:44 AM EDT [facility] ([facility]) CO2 33(H) 21 - 31 mmol/L 07/02/2024 8:44 AM EDT [facility] ([facility]) Anion Gap 6(L) 7 - 20 mmol/L 07/02/2024 8:44 AM EDT [facility] ([facility]) BUN 39(H) 7 - 25 mg/dL 07/02/2024 8:44 AM EDT [facility] ([facility]) Creatinine 0.99 0.70 - 1.30 mg/dL 07/02/2024 8:44 AM EDT [facility] ([facility]) BUN/Creatinine Ratio 39.4 09/2023 8:44 AM EDT [facility] ([facility]) Glucose 96 70 - 100 mg/dL 07/02/2024 8:44 AM EDT [facility] ([facility]) Calcium 9.0 8.6 - 10.3 mg/dL 07/02/2024 8:44 AM EDT [facility] ([facility]) AST 18 13 - 39 U/L 07/02/2024 8:44 AM EDT [facility] ([facility]) ALT (SGPT) 12 7 - 52 U/L 07/02/2024 8:44 AM EDT [facility] ([facility]) Alkaline Phosphatase 107(H) 34 - 104 U/L 07/02/2024 8:44 AM EDT [facility] ([facility]) Total Protein 5.8(L) 6.0 - 8.3 g/dL 07/02/2024 8:44 AM EDT [facility] ([facility]) Albumin 2.8(L) 3.5 - 5.7 g/dL 07/02/2024 8:44 AM EDT [facility] ([facility]) Total Bilirubin 0.3 0.3 - 1.0 mg/dL 07/02/2024 8:44 AM EDT [facility] ([facility]) eGFR 75.6 >60.0 mL/min/1. 73m*2 07/02/2024 8:44 AM EDT [facility] ([facility]) Comment:[facility] s estimated glomerular filtration rate [...] blood specimen / Unknown Venipuncture / Unknown 07/02/2024 5:00 AM EDT 07/02/2024 7:30 AM EDT us Juan José Lozano MD LAB BLOOD ORDERABLES Final Result [facility] ([facility]) [address] [place], [place] [phone] * (ABNORMAL) CBC (07/02/2024 5:00 AM EDT) Auto WBC 7.90 4.00 - 10.60 10*3/uL 07/02/2024 7:58 AM EDT [facility] ([facility]) RBC 2.67(L) 4.20 - 5.70 10*6/uL 07/02/2024 7:58 AM EDT [facility] ([facility]) Hemoglobin 8.3(L) 13.0 - 17.0 g/dL 07/02/2024 7:58 AM EDT [facility] ([facility]) Hematocrit 26.8(L) 39.0 - 55.0 % 07/02/2024 7:58 AM EDT [facility] ([facility]) MCV 100.4(H) 82.0 - 98.0 fL 07/02/2024 7:58 AM EDT [facility] ([facility]) MCH 31.1 27.0 - 33.0 pg 07/02/2024 7:58 AM EDT [facility] ([facility]) MCHC 31.0(L) 32.0 - 35.0 g/dL 07/02/2024 7:58 AM EDT [facility] ([facility]) RDW 15.9(H) 11.5 - 15.0 % 07/02/2024 7:58 AM EDT [facility] ([facility]) Platelets 256 150 - 400 10*3/uL 07/02/2024 7:58 AM EDT [facility] ([facility]) Blood Venous blood specimen / Unknown Venipuncture / Unknown 07/02/2024 5:00 AM EDT 07/02/2024 7:30 AM EDT us Juan José Lozano MD LAB BLOOD ORDERABLES Final Result [facility] ([facility]) [address] [place] [address] documented in this encounter Visit Diagnoses Not on filedocumented in this encounter
--- OUTSIDE RECORDS SUMMARY | 2025-02-28 13:05 | XMS_ITS | Encounter Summary ---
Author Organization [facility] Address [address] [address] Care Team Providers Care Salesperson [employer] Name Role Phone Unavailable Primary Care Provider Unavailabl e Encounter Details Date Type Department Care Team (Late st Contact Info) Description 07/18/2024 Lab Requisition [facility] Lab [address] [place] [address] Juan José Lozano MD [address] [place] [phone] Social History Tobacco Use Types Packs/Day Years Used Date Smoking Tobacco: Never Assessed [place] Safety & Environment Answer Date Rec orded [...] Priority Date/Time Associated Diagnosis Comments CBC Routine 07/19/2024 4:05 AM EST PHOSPHORUS Routine 07/19/2024 4:05 AM EST MAGNESIUM Routine 07/19/2024 4:05 AM EST COMPREHENSIVE METABOLIC PANEL Routine 07/19/2024 4:05 AM EST documented in this encounter Results * Phosphorus (07/19/2024 4:05 AM EST) Phosphorus 3.3 2.5 - 5.0 mg/dL 07/19/2024 8:16 AM EST [facility] ([facility]) Blood Venous blood specimen / Unknown Venipuncture / Unknown 07/19/2024 4:05 AM EST 07/19/2024 6:23 AM EST Juan José Lozano MD LAB BLOOD ORDERABLES Final Result [facility]) [address] [place] [address] * Magnesium (07/19/2024 4:05 AM EST) Pathologist [facility] Magnesium 2.1 1.9 - 2.7 mg/dL 07/19/2024 8:16 AM EST [facility]) Blood Venous blood specimen / Unknown Venipuncture / Unknown 07/19/2024 4:05 AM EST 07/19/2024 6:23 AM EST us Juan José Lozano MD LAB BLOOD ORDERABLES Final Result Performing Organization Address City/[facility] Co de Phone Number [facility]) [address] [place] [phone] * (ABNORMAL) Comprehensive metabolic panel (07/19/2024 4:05 AM EST) Pathologist [facility] Sodium 135(L) 136 - 145 mmol/L 07/19/2024 8:16 AM EST [facility] ([facility]) Potassium 4.2 3.5 - 5.1 mmol/L 07/19/2024 8:16 AM EST [facility] ([facility]) Chloride 101 98 - 107 mmol/L 07/19/2024 8:16 AM EST [facility] ([facility]) CO2 32(H) 21 - 31 mmol/L 07/19/2024 8:16 AM EST [facility] ([facility]) Anion Gap 6(L) 7 - 20 mmol/L 07/19/2024 8:16 AM EST [facility] ([facility]) BUN 24 7 - 25 mg/dL 07/19/2024 8:16 AM [facility] ([facility]) Creatinine 0.66(L) 0.70 - 1.30 mg/dL 07/19/2024 8:16 AM [facility] ([facility]) BUN/Creatinine Ratio 36.4 07/02 8:16 AM [facility] ([facility]) Glucose 83 70 - 100 mg/dL 07/19/2024 8:16 AM [facility] ([facility]) Calcium 9.0 8.6 - 10.3 mg/dL 07/19/2024 8:16 AM [facility] ([facility]) AST 14 13 - 39 U/L 07/19/2024 8:16 AM [facility] ([facility]) ALT (SGPT) 13 7 - 52 U/L 07/19/2024 8:16 AM [facility] ([facility]) Alkaline Phosphatase 87 34 - 104 U/L 07/19/2024 8:16 AM [facility] ([facility]) Total Protein 6.9 6.0 - 8.3 g/dL 07/19/2024 8:16 AM [facility] ([facility]) Albumin 3.4(L) 3.5 - 5.7 g/dL 07/19/2024 8:16 AM [facility] ([facility]) Total Bilirubin 0.2(L) 0.3 - 1.0 mg/dL 07/19/2024 8:16 AM [facility] ([facility]) eGFR 93.1 >60.0 mL/min/1. 73m*2 07/19/2024 8:16 AM [facility] ([facility]) Comment:The [facility] s estimated glomerular filtration rate [...] blood specimen / Unknown Venipuncture / Unknown 07/19/2024 4:05 AM EST 07/19/2024 6:23 AM EST us Juan José Lozano MD LAB BLOOD ORDERABLES Final Result [facility] ([facility]) [address] [place] [address] * (ABNORMAL) CBC (07/19/2024 4:05 AM EST) Auto WBC 8.93 4.00 - 10.60 10*3/uL 07/19/2024 7:00 AM [facility] ([facility]) RBC 3.12(L) 4.20 - 5.70 10*6/uL 07/19/2024 7:00 AM [facility] ([facility]) Hemoglobin 9.5(L) 13.0 - 17.0 g/dL 07/19/2024 7:00 AM [facility] ([facility]) Hematocrit 30.3(L) 39.0 - 55.0 % 07/19/2024 7:00 AM [facility] ([facility]) MCV 97.1 82.0 - 98.0 fL 07/19/2024 7:00 AM [facility] ([facility]) MCH 30.4 27.0 - 33.0 pg 07/19/2024 7:00 AM [facility] ([facility]) MCHC 31.4(L) 32.0 - 35.0 g/dL 07/19/2024 7:00 AM [facility] ([facility]) RDW 15.5(H) 11.5 - 15.0 % 07/19/2024 7:00 AM [facility] ([facility]) Platelets 343 150 - 400 10*3/uL 07/19/2024 7:00 AM [facility] ([facility]) Blood Venous blood specimen / Unknown Venipuncture / Unknown 07/19/2024 4:05 AM EST 07/19/2024 6:24 AM EST us Juan José Lozano MD LAB BLOOD ORDERABLES Final Result [facility] ([facility]) [address] [facility] [place] [address] documented in this encounter Visit Diagnoses Not on filedocumented in this encounter
--- OUTSIDE RECORDS SUMMARY | 2025-02-28 13:05 | XMS_ITS | Encounter Summary ---
Author Organization [facility] Address [address] [place] [address] Care Team Providers Care Manager Delivery Name Role Phone Unavailable Primary Care Provider Unavailabl e Encounter Details Date Type Department Care Team (Late st Contact Info) Description 06/17/2024 Lab Requisition [facility] Lab [address] [place] [address] Juan José Lozano MD [facility] [place] [address] Respiratory failure, unspecified, unspecified whether with hypoxia or hypercapnia (CMS/HCC) Social History Tobacco Use Types Packs/Day Years Used Date Smoking Tobacco: Never Assessed [place] Safety & Environment Answer Date Rec orded [...] Priority Date/Time Associated Diagnosis Comments CBC Routine 06/18/2024 4:54 AM EDT Respiratory failure, unspecified, unspecified whether with hypoxia or hypercapnia (CMS/HCC) BASIC METABOLIC PANEL Routine 06/18/2024 4:54 AM EDT Respiratory failure, unspecified, unspecified whether with hypoxia or hypercapnia (CMS/HCC) documented in this encounter Results * (ABNORMAL) Basic metabolic panel (06/18/2024 4:54 AM EDT) Sodium 132(L) 136 - 145 mmol/L 06/18/2024 5:58 AM T [facility] ([facility]) Potassium 3.9 3.5 - 5.1 mmol/L 06/18/2024 5:58 AM EDT [facility] ([facility]) Chloride 100 98 - 107 mmol/L 06/18/2024 5:58 AM T [facility] ([facility]) CO2 26 21 - 31 mmol/L 06/18/2024 5:[address] [facility] ([facility]) BUN 30(H) 7 - 25 mg/dL 06/18/2024 5:58 AM T [facility] ([facility]) Creatinine 0.64(L) 0.70 - 1.30 mg/dL 06/18/2024 5:[address] [facility] ([facility]) Glucose 117(H) 70 - 100 mg/dL 06/18/2024 5:[address] [facility] ([facility]) Calcium 8.3(L) 8.6 - 10.3 mg/dL 06/18/2024 5:[address] [facility] ([facility]) Anion Gap 10 7 - 20 mmol/L 06/18/2024 5:[address] [facility] ([facility]) eGFR 93.9 >60.0 mL/min/1. 73m*2 06/18/2024 5:[address] [facility] ([facility]) Comment:[facility] s estimated glomerular filtration rate (eGFR) [...] any one group of individuals. BUN/Creatinine Ratio 46.9 06/01 5:[address] [facility] ([facility]) Blood Venous blood specimen / Unknown Venipuncture / Unknown 06/18/2024 4:54 AM EDT 06/18/2024 5:25 AM EDT us Juan José Lozano MD LAB BLOOD ORDERABLES Final Result [facility] ([facility]) [address] [place] [address] * (ABNORMAL) CBC (06/18/2024 4:54 AM EDT) Auto WBC 10.82(H) 4.00 - 10.60 10*3/uL 06/18/2024 5:45 AM EDT [facility] ([facility]) RBC 2.54(L) 4.20 - 5.70 10*6/uL 06/18/2024 5:45 AM EDT [facility] ([facility]) Hemoglobin 7.9(L) 13.0 - 17.0 g/dL 06/18/2024 5:45 AM EDT [facility] ([facility]) Hematocrit 25.5(L) 39.0 - 55.0 % 06/18/2024 5:45 AM EDT [facility] ([facility]) MCV 100.4(H) 82.0 - 98.0 fL 06/18/2024 5:45 AM EDT [facility] ([facility]) MCH 31.1 27.0 - 33.0 pg 06/18/2024 5:45 AM EDT [facility] ([facility]) MCHC 31.0(L) 32.0 - 35.0 g/dL 06/18/2024 5:45 AM EDT [facility] ([facility]) RDW 16.1(H) 11.5 - 15.0 % 06/18/2024 5:45 AM EDT [facility] ([facility]) Platelets 232 150 - 400 10*3/uL 06/18/2024 5:45 AM EDT [facility] ([facility]) Blood Venous blood specimen / Unknown Venipuncture / Unknown 06/18/2024 4:54 AM EDT 06/18/2024 5:25 AM EDT us Juan José Lozano MD LAB BLOOD ORDERABLES Final Result [facility] ([facility]) [address] [place] [address] documented in this encounter Visit Diagnoses Diagnosis Respiratory failure, unspecified, unspecified whether with hypoxia or hypercapnia (CMS/HCC) documented in this encounter
--- OUTSIDE RECORDS SUMMARY | 2025-02-28 13:05 | XMS_ITS | Encounter Summary ---
Author Organization [facility] Address [address] [place] [address] Care Team Providers Care End Stapler Name Role Phone Unavailable Primary Care Provider Unavailabl e Encounter Details Date Type Department Care Team (Late st Contact Info) Description 06/23/2024 Lab Requisition [facility] Lab [address] [place] [address] Juan José Lozano MD [address] [place] [phone] Social History Tobacco Use Types Packs/Day Years Used Date Smoking Tobacco: Never Assessed [place] Safety & Environment Answer Date Rec orded [...] Diagnosis Comments CBC WITH AUTO DIFFERENTIAL Routine 06/24/2024 3:56 AM EDT CBC AND DIFFERENTIAL Routine 06/24/2024 3:56 AM EDT MAGNESIUM Routine 06/24/2024 3:56 AM EDT BASIC METABOLIC PANEL Routine 06/24/2024 3:56 AM EDT documented in this encounter Results * (ABNORMAL) CBC auto differential (06/24/2024 3:56 AM EDT) Auto WBC 5.95 4.00 - 10.60 10*3/uL 06/24/2024 7:06 AM EDT [facility] ([facility]) RBC 2.77(L) 4.20 - 5.70 10*6/uL 06/24/2024 7:06 AM T [facility] ([facility]) Hemoglobin 8.4(L) 13.0 - 17.0 g/dL 06/24/2024 7:06 AM [facility] ([facility]) Hematocrit 26.3(L) 39.0 - 55.0 % 06/24/2024 7:06 AM T [facility] ([facility]) MCV 94.9 82.0 - 98.0 fL 06/24/2024 7:06 AM [facility] ([facility]) MCH 30.3 27.0 - 33.0 pg 06/24/2024 7:06 AM [facility] ([facility]) MCHC 31.9(L) 32.0 - 35.0 g/dL 06/24/2024 7:06 AM [facility] ([facility]) RDW 15.3(H) 11.5 - 15.0 % 06/24/2024 7:06 AM [facility] ([facility]) Neutrophils % 66.4 40.0 - 72.0 % 06/24/2024 7:06 AM [facility] ([facility]) Lymphocytes % 15.5(L) 20.0 - 45.0 % 06/24/2024 7:06 AM [facility] ([facility]) Monocytes % 5.5 5.0 - 12.0 % 06/24/2024 7:06 AM [facility] ([facility]) Eosinophils % 11.8(H) 0.0 - 6.0 % 06/24/2024 7:06 AM [facility] ([facility]) Basophils % 0.5 0.0 - 1.0 % 06/24/2024 7:06 AM [facility] ([facility]) Neutrophils Absolute 3.95 1.60 - 7.60 10*3/uL 06/24/2024 7:06 AM [facility] ([facility]) Lymphocytes Absolute 0.92(L) 1.20 - 4.00 10*3/uL 06/24/2024 7:06 AM EDT [facility] ([facility]) Monocytes Absolute 0.33 0.10 - 1.00 10*3/uL 06/24/2024 7:06 AM EDT [facility] ([facility]) Eosinophils Absolute 0.70(H) 0.00 - 0.50 10*3/uL 06/24/2024 7:06 AM EDT [facility] ([facility]) Basophils Absolute 0.03 0.00 - 0.20 10*3/uL 06/24/2024 7:06 AM EDT [facility] ([facility]) Platelets 309 150 - 400 10*3/uL 06/24/2024 7:06 AM EDT [facility] ([facility]) nRBC % 0.0 0 % 06/24/2024 7:06 AM EDT [facility] ([facility]) Immature Granulocytes % 0.3 0.0 - 1.0 % 06/24/2024 7:06 AM EDT [facility] ([facility]) Immature Granulocytes Absolute 0.02 0.00 - 0.20 10*3/uL 06/24/2024 7:06 AM EDT [facility] ([facility]) Blood Venous blood specimen / Unknown Venipuncture / Unknown 06/24/2024 3:56 AM EDT 06/24/2024 6:26 AM EDT Juan José Lozano MD LAB BLOOD ORDERABLES Final Result [facility] ([facility]) [address] [place], [place] [id number] * Magnesium (06/24/2024 3:56 AM EDT) Magnesium 2.1 1.9 - 2.7 mg/dL 06/24/2024 7:23 AM EDT [facility] ([facility]) Blood Venous blood specimen / Unknown Venipuncture / Unknown 06/24/2024 3:56 AM EDT 06/24/2024 6:26 AM EDT us Juan José Lozano MD LAB BLOOD ORDERABLES Final Result [facility] ([facility]) [address] [place], [place] [id number] * (ABNORMAL) Basic metabolic panel (06/24/2024 3:56 AM EDT) Sodium 136 136 - 145 mmol/L 06/24/2024 7:23 AM EDT [facility] ([facility]) Potassium 3.6 3.5 - 5.1 mmol/L 06/24/2024 7:23 AM EDT [facility] ([facility]) Chloride 102 98 - 107 mmol/L 06/24/2024 7:23 AM EDT [facility] ([facility]) CO2 30 21 - 31 mmol/L 06/24/2024 7:23 AM EDT [facility] ([facility]) BUN 7 7 - 25 mg/dL 06/24/2024 7:23 AM EDT [facility] ([facility]) Creatinine 0.54(L) 0.70 - 1.30 mg/dL 06/24/2024 7:23 AM EDT [facility] ([facility]) Glucose 92 70 - 100 mg/dL 06/24/2024 7:23 AM EDT [facility] ([facility]) Calcium 8.3(L) 8.6 - 10.3 mg/dL 06/24/2024 7:23 AM EDT [facility] ([facility]) Anion Gap 8 7 - 20 mmol/L 06/24/2024 7:23 AM EDT [facility] ([facility]) eGFR 98.9 >60.0 mL/min/1. 73m*2 06/24/2024 7:23 AM EDT [facility] ([facility]) Comment:[facility] s estimated glomerular filtration rate (eGFR) [...] any one group of individuals. BUN/Creatinine Ratio 13.0 06/02 7:23 AM EDT [facility] ([facility]) Blood Venous blood specimen / Unknown Venipuncture / Unknown 06/24/2024 3:56 AM EDT 06/24/2024 6:26 AM EDT us Juan José Lozano MD LAB BLOOD ORDERABLES Final Result [facility]) [address] [place] [address] documented in this encounter Visit Diagnoses Not on filedocumented in this encounter
--- OUTSIDE RECORDS SUMMARY | 2025-02-28 13:05 | XMS_ITS | Encounter Summary ---
Author Organization [facility] Address [address] [place] [address] Care Team Providers Care Civil Service Worker Name Role Phone Unavailable Primary Care Provider Unavailabl e Encounter Details Date Type Department Care Team (Late st Contact Info) Description 07/04/2024 Lab Requisition [facility] Lab [address] [place] [address] Juan José Lozano MD [address] [place] [phone] Social History Tobacco Use Types Packs/Day Years Used Date Smoking Tobacco: Never Assessed [place] Safety & Environment Answer Date Rec orded [...] Diagnosis Comments CBC WITH AUTO DIFFERENTIAL Routine 07/04/2024 4:15 AM EST CBC AND DIFFERENTIAL Routine 07/04/2024 4:15 AM EST MAGNESIUM Routine 07/04/2024 4:15 AM EST BASIC METABOLIC PANEL Routine 07/04/2024 4:15 AM EST documented in this encounter Results * (ABNORMAL) CBC auto differential (07/04/2024 4:15 AM EST) Auto WBC 6.63 4.00 - 10.60 10*3/uL 07/04/2024 5:36 AM [facility] ([facility]) RBC 2.79(L) 4.20 - 5.70 10*6/uL 07/04/2024 5:36 AM [facility] ([facility]) Hemoglobin 8.5(L) 13.0 - 17.0 g/dL 07/04/2024 5:36 AM [facility] ([facility]) Hematocrit 27.3(L) 39.0 - 55.0 % 07/04/2024 5:36 AM [facility] ([facility]) MCV 97.8 82.0 - 98.0 fL 07/04/2024 5:36 AM [facility] ([facility]) MCH 30.5 27.0 - 33.0 pg 07/04/2024 5:36 AM [facility] ([facility]) MCHC 31.1(L) 32.0 - 35.0 g/dL 07/04/2024 5:36 AM [facility] ([facility]) RDW 15.8(H) 11.5 - 15.0 % 07/04/2024 5:36 AM [facility] ([facility]) Neutrophils % 65.9 40.0 - 72.0 % 07/04/2024 5:36 AM [facility] ([facility]) Lymphocytes % 13.4(L) 20.0 - 45.0 % 07/04/2024 5:36 AM [facility] ([facility]) Monocytes % 8.0 5.0 - 12.0 % 07/04/2024 5:36 AM [facility] ([facility]) Eosinophils % 12.1(H) 0.0 - 6.0 % 07/04/2024 5:36 AM [facility] ([facility]) Basophils % 0.3 0.0 - 1.0 % 07/04/2024 5:36 AM [facility] ([facility]) Neutrophils Absolute 4.37 1.60 - 7.60 10*3/uL 07/04/2024 5:36 AM [facility] ([facility]) Lymphocytes Absolute 0.89(L) 1.20 - 4.00 10*3/uL 07/04/2024 5:36 AM EST [facility] ([facility]) Monocytes Absolute 0.53 0.10 - 1.00 10*3/uL 07/04/2024 5:36 AM EST [facility] ([facility]) Eosinophils Absolute 0.80(H) 0.00 - 0.50 10*3/uL 07/04/2024 5:36 AM EST [facility] ([facility]) Basophils Absolute 0.02 0.00 - 0.20 10*3/uL 07/04/2024 5:36 AM EST [facility] ([facility]) Platelets 272 150 - 400 10*3/uL 07/04/2024 5:36 AM EST [facility] ([facility]) nRBC % 0.0 0 % 07/04/2024 5:36 AM EST [facility] ([facility]) Immature Granulocytes % 0.3 0.0 - 1.0 % 07/04/2024 5:36 AM EST [facility] ([facility]) Immature Granulocytes Absolute 0.02 0.00 - 0.20 10*3/uL 07/04/2024 5:36 AM EST [facility] ([facility]) Blood Venous blood specimen / Unknown Venipuncture / Unknown 07/04/2024 4:15 AM EST 07/04/2024 5:06 AM EST Juan José Lozano MD LAB BLOOD ORDERABLES Final Result [facility] ([facility]) [address] [place] [address] * Magnesium (07/04/2024 4:15 AM EST) Magnesium 2.0 1.9 - 2.7 mg/dL 07/04/2024 6:21 AM EST [facility] ([facility]) Blood Venous blood specimen / Unknown Venipuncture / Unknown 07/04/2024 4:15 AM EST 07/04/2024 5:06 AM EST Juan José Lozano MD LAB BLOOD ORDERABLES Final Result [facility] ([facility]) [address] [place] [address] * (ABNORMAL) Basic metabolic panel (07/04/2024 4:15 AM EST) Sodium 137 136 - 145 mmol/L 07/04/2024 6:21 AM EST [facility] ([facility]) Potassium 4.5 3.5 - 5.1 mmol/L 07/04/2024 6:21 AM EST [facility] ([facility]) Chloride 101 98 - 107 mmol/L 07/04/2024 6:21 AM [facility] ([facility]) CO2 32(H) 21 - 31 mmol/L 07/04/2024 6:21 AM [facility] ([facility]) BUN 39(H) 7 - 25 mg/dL 07/04/2024 6:21 AM [facility] ([facility]) Creatinine 0.72 0.70 - 1.30 mg/dL 07/04/2024 6:21 AM [facility] ([facility]) Glucose 120(H) 70 - 100 mg/dL 07/04/2024 6:21 AM [facility] ([facility]) Calcium 9.2 8.6 - 10.3 mg/dL 07/04/2024 6:21 AM [facility] ([facility]) Anion Gap 9 7 - 20 mmol/L 07/04/2024 6:21 AM [facility] ([facility]) eGFR 90.7 >60.0 mL/min/1. 73m*2 07/04/2024 6:21 AM [facility] ([facility]) Comment:[facility] s estimated glomerular filtration rate (eGFR) [...] one group of individuals. BUN/Creatinine Ratio 54.2 10/2023 6:21 AM EST [facility] ([facility]) Blood Venous blood specimen / Unknown Venipuncture / Unknown 07/04/2024 4:15 AM EST 07/04/2024 5:06 AM EST us Juan José Lozano MD LAB BLOOD ORDERABLES Final Result [facility] ([facility]) [address] [place] [address] documented in this encounter Visit Diagnoses Not on filedocumented in this encounter
--- OUTSIDE RECORDS SUMMARY | 2025-02-28 13:05 | XMS_ITS | Encounter Summary ---
Author Organization [facility] Address [address] [place] [address] Care Team Providers Care Manager Highway Name Role Phone Unavailable Primary Care Provider Unavailabl e Encounter Details Date Type Department Care Team (Late st Contact Info) Description 07/09/2024 Lab Requisition [facility] [address] [place] [address] Juan José Lozano MD [address] [place] [phone] Social History Tobacco Use Types Packs/Day Years Used Date Smoking Tobacco: Never Assessed MD Safety & Environment Answer Date Rec orded [...] Procedure Name Priority Date/Time Associated Diagnosis Comments OCCULT BLOOD X 1, STOOL Routine 07/08/2024 8:40 PM EST documented in this encounter Results * Occult blood x 1, stool (07/08/2024 8:40 PM EST) Fecal Occult Bld Negative Negative, None Detected 07/09/2024 6:55 AM EST [facility] ([facility]) Stool Rectal contents / Unknown 07/08/2024 8:40 PM EST 07/09/2024 5:14 AM EST us Juan José Lozano MD LAB BODY FLUIDS AND STOOLS ORDERABLES Final Result [facility] ([facility]) [address] [place] [address] documented in this encounter Visit Diagnoses Not on filedocumented in this encounter
--- OUTSIDE RECORDS SUMMARY | 2025-02-28 13:05 | XMS_ITS | Encounter Summary ---
Author Organization [facility] Address [address] [place] [address] Care Team Providers Care Sales Team Member Name Role Phone Unavailable Primary Care Provider Unavailabl e Encounter Details Date Type Department Care Team (Late st Contact Info) Description 06/19/2024 Lab Requisition [facility] Lab [address] [place] [address] Juan José Lozano MD [address] [place] [phone] Social History Tobacco Use Types Packs/Day Years [...] Priority Date/Time Associated Diagnosis Comments CBC Routine 06/19/2024 4:20 AM EDT PHOSPHORUS Routine 06/19/2024 4:20 AM EDT MAGNESIUM Routine 06/19/2024 4:20 AM EDT BASIC METABOLIC PANEL Routine 06/19/2024 4:20 AM EDT documented in this encounter Results * (ABNORMAL) Phosphorus (06/19/2024 4:20 AM EDT) Pathologist [facility] Phosphorus 2.1(L) 2.5 - 5.0 mg/dL 06/19/2024 6:09 AM EDT [facility] ([facility]) Blood Venous blood specimen / Unknown 06/19/2024 4:20 AM EDT 06/19/2024 5:19 AM EDT Juan José Lozano MD LAB BLOOD ORDERABLES Final Result Performing Organization Address City/[facility]/ZIP Co de Phone Number [facility]) [address] [place] [address] * Magnesium (06/19/2024 4:20 AM EDT) Pathologist [facility] Magnesium 2.0 1.9 - 2.7 mg/dL 06/19/2024 6:09 AM EDT [facility] ([facility]) Blood Venous blood specimen / Unknown 06/19/2024 4:20 AM EDT 06/19/2024 5:19 AM EDT us Juan José Lozano MD LAB BLOOD ORDERABLES Final Result Performing Organization Address [facility] Co de Phone Number [facility]) [address] [place] [address] * (ABNORMAL) Basic metabolic panel (06/19/2024 4:20 AM EDT) Pathologist [facility] Sodium 134(L) 136 - 145 mmol/L 06/19/2024 6:09 AM EDT [facility] ([facility]) Potassium 3.8 3.5 - 5.1 mmol/L 06/19/2024 6:09 AM EDT [facility] ([facility]) Chloride 102 98 - 107 mmol/L 06/19/2024 6:09 AM EDT [facility] ([facility]) CO2 25 21 - 31 mmol/L 06/19/2024 6:09 AM EDT [facility] ([facility]) BUN 41(H) 7 - 25 mg/dL 06/19/2024 6:09 AM EDT [facility] ([facility]) Creatinine 0.82 0.70 - 1.30 mg/dL 06/19/2024 6:09 AM EDT [facility] ([facility]) Glucose 55(L) 70 - 100 mg/dL 06/19/2024 6:09 AM EDT [facility] ([facility]) Calcium 8.7 8.6 - 10.3 mg/dL 06/19/2024 6:09 AM EDT [facility] ([facility]) Anion Gap 11 7 - 20 mmol/L 06/19/2024 6:09 AM EDT [facility] ([facility]) eGFR 87.2 >60.0 mL/min/1. 73m*2 06/19/2024 6:09 AM EDT [facility] ([facility]) Comment:[facility] s estimated glomerular filtration rate (eGFR) will [...] any one group of individuals. BUN/Creatinine Ratio 50.0 06/01 6:09 AM EDT [facility] ([facility]) Blood Venous blood specimen / Unknown 06/19/2024 4:20 AM EDT 06/19/2024 5:19 AM EDT us Juan José Lozano MD LAB BLOOD ORDERABLES Final Result [facility] ([facility]) [address] [place] [address] * (ABNORMAL) CBC (06/19/2024 4:20 AM EDT) Auto WBC 11.69(H) 4.00 - 10.60 10*3/uL 06/19/2024 5:51 AM EDT [facility] ([facility]) RBC 2.90(L) 4.20 - 5.70 10*6/uL 06/19/2024 5:51 AM EDT [facility] ([facility]) Hemoglobin 8.9(L) 13.0 - 17.0 g/dL 06/19/2024 5:51 AM EDT [facility] ([facility]) Hematocrit 29.3(L) 39.0 - 55.0 % 06/19/2024 5:51 AM EDT [facility] ([facility]) MCV 101.0(H) 82.0 - 98.0 fL 06/19/2024 5:51 AM EDT [facility] ([facility]) MCH 30.7 27.0 - 33.0 pg 06/19/2024 5:51 AM EDT [facility] ([facility]) MCHC 30.4(L) 32.0 - 35.0 g/dL 06/19/2024 5:51 AM EDT [facility] ([facility]) RDW 15.8(H) 11.5 - 15.0 % 06/19/2024 5:51 AM EDT [facility] ([facility]) Platelets 252 150 - 400 10*3/uL 06/19/2024 5:51 AM EDT [facility] ([facility]) Blood Venous blood specimen / Unknown 06/19/2024 4:20 AM EDT 06/19/2024 5:19 AM EDT us Juan José Lozano MD LAB BLOOD ORDERABLES Final Result [facility] ([facility]) [address] [place], [place] [id number] documented in this encounter Visit Diagnoses Not on filedocumented in this encounter
--- OUTSIDE RECORDS SUMMARY | 2025-02-28 13:05 | XMS_ITS | Encounter Summary ---
Author Organization [facility] Address [address] [place] [address] Care Team Providers Care Internal Wholesaler Name Role Phone Unavailable Primary Care Provider Unavailabl e Encounter Details Date Type Department Care Team (Late st Contact Info) Description 07/15/2024 Lab Requisition [facility] [address] [place] [address] Juan José Lozano MD [address] [place] [phone] Social History Tobacco Use Types Packs/Day Years [...] Priority Date/Time Associated Diagnosis Comments MAGNESIUM Routine 07/15/2024 3:00 AM EST BASIC METABOLIC PANEL Routine 07/15/2024 3:00 AM EST documented in this encounter Results * Magnesium (07/15/2024 3:00 AM EST) Magnesium 1.9 1.9 - 2.7 mg/dL 07/15/2024 6:08 AM EST [facility] ([facility]) Blood Venous blood specimen / Unknown Venipuncture / Unknown 07/15/2024 3:00 AM EST 07/15/2024 5:14 AM EST us Juan José Lozano MD LAB BLOOD ORDERABLES Final Result [facility] ([facility]) [address] [place] [address] * (ABNORMAL) Basic metabolic panel (07/15/2024 3:00 AM EST) Sodium 136 136 - 145 mmol/L 07/15/2024 6:08 AM EST [facility] ([facility]) Potassium 4.2 3.5 - 5.1 mmol/L 07/15/2024 6:08 AM EST [facility] ([facility]) Chloride 101 98 - 107 mmol/L 07/15/2024 6:08 AM EST [facility] ([facility]) CO2 32(H) 21 - 31 mmol/L 07/15/2024 6:08 AM EST [facility] ([facility]) BUN 31(H) 7 - 25 mg/dL 07/15/2024 6:08 AM [facility] ([facility]) Creatinine 0.56(L) 0.70 - 1.30 mg/dL 07/15/2024 6:08 AM [facility] ([facility]) Glucose 100 70 - 100 mg/dL 07/15/2024 6:08 AM [facility] ([facility]) Calcium 9.5 8.6 - 10.3 mg/dL 07/15/2024 6:08 AM [facility] ([facility]) Anion Gap 7 7 - 20 mmol/L 07/15/2024 6:08 AM [facility] ([facility]) eGFR 97.8 >60.0 mL/min/1. 73m*2 07/15/2024 6:08 AM [facility] ([facility]) Comment:[facility] s estimated glomerular filtration rate (eGFR) will [...] any one group of individuals. BUN/Creatinine Ratio 55.4 07/02 6:08 AM EST [facility] ([facility]) Blood Venous blood specimen / Unknown Venipuncture / Unknown 07/15/2024 3:00 AM EST 07/15/2024 5:14 AM EST us Juan José Lozano MD LAB BLOOD ORDERABLES Final Result [facility] ([facility]) [address] [place] [address] documented in this encounter Visit Diagnoses Not on filedocumented in this encounter
--- OUTSIDE RECORDS SUMMARY | 2025-02-28 13:05 | XMS_ITS | Clinical Summary ---
Author Organization [facility] Address [address] [facility] [place] [address] Care Team Providers Care Engineering Technical Writer Name Role Phone Dony Rao DO Primary Care Provider [phone] Social History Tobacco Use Types Packs/Day Years Used Date Smoking Tobacco: Never Assessed Sex and Gender Information Value Date Recorded Sex Assigned at Not on file Legal Sex Male 6:37 PM EDT Gender Identity Not on file Sexual Orientation Not on file Plan of Treatment Not on file Insurance MEDICARE [facility] [place] [id number] Care Teams Engineering Technical Writer Relationship Specialty Start Date End Date Dony Rao DO PCP - General Internal Medicine 03/18/23
--- OUTSIDE RECORDS SUMMARY | 2025-02-28 13:05 | XMS_ITS | Encounter Summary ---
Author Organization [facility] Address [address] [address] Care Team Providers Care Emts Name Role Phone Unavailable Primary Care Provider Unavailabl e Encounter Details Date Type Department Care Team (Late st Contact Info) Description 07/20/2024 Lab Requisition [facility] [address] [place] [address] Juan José Lozano MD [address] [place] [id number] Social History Tobacco Use Types Packs/Day Years Used Date Smoking Tobacco: Never Assessed [place] Safety & Environment Answer Date Rec orded [...] on file documented as of this encounter Visit Diagnoses Not on filedocumented in this encounter
--- OUTSIDE RECORDS SUMMARY | 2025-02-28 13:05 | XMS_ITS | Encounter Summary ---
Author Organization [facility] Address [address] [place] [address] Care Team Providers Care Jewelry Casting Model Maker Name Role Phone Unavailable Primary Care Provider Unavailabl e Encounter Details Date Type Department Care Team (Late st Contact Info) Description 07/20/2024 Lab Requisition [facility] [address] [place] [address] Juan José Lozano MD [address] [place] [id number] Social History Tobacco Use Types Packs/Day Years [...]
--- OUTSIDE RECORDS SUMMARY | 2025-02-28 13:05 | XMS_ITS | Encounter Summary ---
Author Organization [facility] Address [address] [place] [address] Care Team Providers Care Blood Bank Business Manager Name Role Phone Unavailable Primary Care Provider Unavailabl e Encounter Details Date Type Department Care Team (Late st Contact Info) Description 07/13/2024 Lab Requisition [facility] [address] [place] [address] Juan José Lozano MD [address] [place] [id number] Social History Tobacco Use Types Packs/Day Years Used Date Smoking Tobacco: Never Assessed [place] Safety & Environment Answer Date Rec orded [...] Diagnosis Comments CBC WITH AUTO DIFFERENTIAL Routine 07/13/2024 2:00 PM EST CBC AND DIFFERENTIAL Routine 07/13/2024 2:00 PM EST TSH Routine 07/13/2024 2:00 PM EST T4, FREE Routine 07/13/2024 2:00 PM EST MAGNESIUM Routine 07/13/2024 2:00 PM EST BASIC METABOLIC PANEL Routine 07/13/2024 2:00 PM EST documented in this encounter Results * (ABNORMAL) CBC auto differential (07/13/2024 2:00 PM EST) Auto WBC 7.68 4.00 - 10.60 10*3/uL 07/13/2024 2:45 PM EST [facility] ([facility]) RBC 2.77(L) 4.20 - 5.70 10*6/uL 07/13/2024 2:45 PM EST [facility] ([facility]) Hemoglobin 8.5(L) 13.0 - 17.0 g/dL 07/13/2024 2:[address] [facility] ([facility]) Hematocrit 27.1(L) 39.0 - 55.0 % 07/13/2024 2:[address] [facility] ([facility]) MCV 97.8 82.0 - 98.0 fL 07/13/2024 2:45 PM EST [facility] ([facility]) MCH 30.7 27.0 - 33.0 pg 07/13/2024 2:45 PM EST [facility] ([facility]) MCHC 31.4(L) 32.0 - 35.0 g/dL 07/13/2024 2:[address] [facility] ([facility]) RDW 15.9(H) 11.5 - 15.0 % 07/13/2024 2:[address] [facility] ([facility]) Neutrophils % 75.1(H) 40.0 - 72.0 % 07/13/2024 2:45 PM EST [facility] ([facility]) Lymphocytes % 13.3(L) 20.0 - 45.0 % 07/13/2024 2:45 PM EST [facility] ([facility]) Monocytes % 7.7 5.0 - 12.0 % 07/13/2024 2:45 PM EST [facility] ([facility]) Eosinophils % 3.0 0.0 - 6.0 % 07/13/2024 2:45 PM EST [facility] ([facility]) Basophils % 0.4 0.0 - 1.0 % 07/13/2024 2:45 PM EST [facility] ([facility]) Neutrophils Absolute 5.77 1.60 - 7.60 10*3/uL 07/13/2024 2:45 PM EST [facility] ([facility]) Lymphocytes Absolute 1.02(L) 1.20 - 4.00 10*3/uL 07/13/2024 2:45 PM EST [facility] ([facility]) Monocytes Absolute 0.59 0.10 - 1.00 10*3/uL 07/13/2024 2:45 PM EST [facility] ([facility]) Eosinophils Absolute 0.23 0.00 - 0.50 10*3/uL 07/13/2024 2:45 PM EST [facility] ([facility]) Basophils Absolute 0.03 0.00 - 0.20 10*3/uL 07/13/2024 2:45 PM EST [facility] ([facility]) Platelets 236 150 - 400 10*3/uL 07/13/2024 2:45 PM EST [facility] ([facility]) nRBC % 0.0 0 % 07/13/2024 2:45 PM EST [facility] ([facility]) Immature Granulocytes % 0.5 0.0 - 1.0 % 07/13/2024 2:45 PM EST [facility] ([facility]) Immature Granulocytes Absolute 0.04 0.00 - 0.20 10*3/uL 07/13/2024 2:45 PM EST [facility] ([facility]) Blood Venous blood specimen / Unknown Venipuncture / Unknown 07/13/2024 2:00 PM EST 07/13/2024 2:32 PM EST us Juan José Lozano MD LAB BLOOD ORDERABLES Final Result [facility] ([facility]) [address] [place] [address] * TSH (07/13/2024 2:00 PM EST) TSH 2.35 0.34 - 5.60 mIU/L 07/13/2024 3:18 PM EST [facility] ([facility]) Blood Venous blood specimen / Unknown Venipuncture / Unknown 07/13/2024 2:00 PM EST 07/13/2024 2:32 PM EST us Juan José Lozano MD LAB BLOOD ORDERABLES Final Result [facility]) [address] [place] [address] * T4, free (07/13/2024 2:00 PM EST) Free T4 0.92 0.71 - 1.85 ng/dL 07/13/2024 3:18 PM EST [facility] ([facility]) Blood Venous blood specimen / Unknown Venipuncture / Unknown 07/13/2024 2:00 PM EST 07/13/2024 2:32 PM EST us Juan José Lozano MD LAB BLOOD ORDERABLES Final Result Performing Organization Address [facility]/ZIP Co de Phone Number [facility]) [address] [place] [address] * Magnesium (07/13/2024 2:00 PM EST) Pathologist [facility] Magnesium 2.2 1.9 - 2.7 mg/dL 07/13/2024 3:02 PM EST [facility]) Blood Venous blood specimen / Unknown Venipuncture / Unknown 07/13/2024 2:00 PM EST 07/13/2024 2:32 PM EST us Juan José Lozano MD LAB BLOOD ORDERABLES Final Result Performing Organization Address City/[facility]/ZIP Co de Phone Number [facility]) [address] [place] [address] * (ABNORMAL) Basic metabolic panel (07/13/2024 2:00 PM EST) Sodium 131(L) 136 - 145 mmol/L 07/13/2024 3:[address] [facility]) Potassium 5.3(H) 3.5 - 5.1 mmol/L 07/13/2024 3:[address] [facility] ([facility]) Chloride 99 98 - 107 mmol/L 07/13/2024 3:[address] [facility] ([facility]) CO2 31 21 - 31 mmol/L 07/13/2024 3:[address] [facility] ([facility]) BUN 61(H) 7 - 25 mg/dL 07/13/2024 3:[address] [facility] ([facility]) Creatinine 0.96 0.70 - 1.30 mg/dL 07/13/2024 3:[address] [facility] ([facility]) Glucose 104(H) 70 - 100 mg/dL 07/13/2024 3:[address] [facility] ([facility]) Calcium 9.6 8.6 - 10.3 mg/dL 07/13/2024 3:02 PM [facility] ([facility]) Anion Gap 6(L) 7 - 20 mmol/L 07/13/2024 3:[address] [facility] ([facility]) eGFR 78.4 >60.0 mL/min/1. 73m*2 07/13/2024 3:[address] [facility] ([facility]) Comment:[facility] s estimated glomerular filtration rate [...] any one group of individuals. BUN/Creatinine Ratio 63.5 07/02 3:[address] [facility] ([facility]) Blood Venous blood specimen / Unknown Venipuncture / Unknown 07/13/2024 2:00 PM EST 07/13/2024 2:32 PM EST Juan José Lozano MD LAB BLOOD ORDERABLES Final Result [facility] ([place]) [address] [place] [address] documented in this encounter Visit Diagnoses Not on filedocumented in this encounter
--- OUTSIDE RECORDS SUMMARY | 2025-02-28 13:05 | XMS_ITS | Clinical Summary ---
Author Organization [employer] Address [id number] [address] [place] [address] Care Team Providers Care Mine Development Engineer Name Role Phone Dony Rao Primary Care Provider [phone] Allergies No known active allergies Medications lisinopriL (PRINIVIL,ZESTR IL) 40 mg tabletIndicatio ns:hypertension Take 40 mg by mouth daily Indications: high blood pressure. Active metoprolol succinate XL (TOPROL-XL) 25 mg 24 hr tablet Take 25 mg by mouth daily. 11/18/2019 Active cholecalciferol , vitamin D3, 5,000 units tablet Take 1 tablet by mouth daily. Active coenzyme Q10 200 mg capsule Take 1 capsule by mouth daily. Active niacin (NIASPAN EXTENDED-RELEAS E) 500 mg CR tablet Take 1 tablet by mouth daily. Active om [id number] V-B1-ijrftdd 500 mg-500 mcg -1 mg-12.5 mg capsule daily. 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 GI bleed 02/09/2020 Immunizations No known immunizations Family History Medical History Relation Name Comments Parkinsonism Brother ALS Mother Relation Name Status Comments Brother Mother Social History Tobacco Use Types Packs/Day Years Used Date Smoking Tobacco: Every Day Cigarettes Smokeless Tobacco: Never Comments:Down to 2-3 cigarre ttes/day Alcohol Use Standard Drinks/Week Comments Yes 14 (1 standard drink = 0.6 oz pu re alcohol) PHQ-2 Answer Date Recorded Total Score 0 03/15/2020 Childcare Answer Date Recorded Childcare Unknown 04/19/2019 Employment Answer Date Recorded Employment Unknown 04/19/2019 Purpose - Life Answer Date Recorded Purpose and direction in life Unknown Sex and Gender Information Value Date Recorded Sex Assigned at Not on file Legal Sex Male 9:17 AM EDT Gender Identity Not on file Sexual Orientation Not on file Occupation Industry Job Start Date Job End Date [employer] Not on file Not on file Not on file Last Filed Vital Signs Vital Sign Reading Time Taken Comments Blood Pressure 171/97 12/04/2020 2:13 PM EDT Pulse 64 12/04/2020 2:13 PM EDT Temperature 36.4 C (97.6 F) 12/04/2020 2:13 PM EDT Respiratory Rate 16 12/04/2020 2:13 PM EDT Oxygen Saturation 94% 02/24/2020 11:07 AM EDT Inhaled Oxygen Concentration - - Weight 74.8 kg (165 lb) 12/04/2020 2:13 PM EDT Height 172.7 cm (5' 8 ) 03/15/2020 3:12 PM EDT Body Mass Index 25.09 03/15/2020 3:12 PM EDT Plan of Treatment Health Maintenance Due Date Last Done Comments Depression Screening 1952 Tobacco Screening 1952 DTaP,Tdap and Td Vaccines (1 - Tdap) 1960 Zoster (Shingles) Vaccine (1 of 2) 1991 Fall Risk Screening 2006 Influenza Vaccine 05/02/2025 Goals Goal Patient Goal Type Associated Problems Recent Progress Patient-Stated? Author Long-Term Goals General Yes Sandrita Fischer LSW Note: Evaluation of progress towards goal: return home with family support Medical Devices Implanted Type Area Shoe Planner Device Identifier Shelf Expiration Date Model / Serial / Lot Filter Ivc Celect Plat Fem Rpl [id number] + [id number] - [id number] - [id number] Implanted:Qty: 1 on 02/12/2020 by Vladimir Michaels MD at [facility] IVC Filter [employer] 10/28/2021 [id number] / [id number] / [id number] [place] [address] MEDICARE [facility] [place] [address] Advance Directives * Full Code (Latest Code Status on File) Date Activated Date Inactivated Comments 02/09/2020 5:22 AM 02/24/2020 6:29 PM Care Teams Mine Development Engineer Relationship Specialty Start Date End Date Dony Roa DO [address] [place] [address] [place] [address] PCP - General Internal Medicine 02/09/20
--- OUTSIDE RECORDS SUMMARY | 2025-02-28 13:05 | XMS_ITS | Encounter Summary ---
Author Organization [employer] Address [id number] [address] [place] [address] Care Team Providers Care Composite Laminator Name Role Phone Dony Rao Primary Care Provider [phone] Encounter Details Date Type Department Care Team (Late st Contact Info) Description 12/11/2020 Orders Only [facility] [address] [place] [address] Mandy Pulido Social History Tobacco Use Types Packs/Day Years [...] file Not on file Not on file COVID-19 Exposure Response Date Recorded In the last month, have you been in contact with someone who was confirmed or suspected to have Coronavirus / COVID-19? No / Unsure 12/04/2020 1:56 PM EDT documented as of this encounter Plan of Treatment Not on file documented as of this encounter Goals Goal Patient Goal Type Associated Problems Recent Progress Patient-Stated? Author Long-Term Goals General Yes Sandrita Fischer LSW Note: Evaluation of progress towards goal: return home with family support documented as of this encounter Visit Diagnoses Not on filedocumented in this encounter Additional Health Concerns Assessment Noted Time PHQ-9 Depression Total Score: 0 03/15/20 20 3:18 PM EDT documented as of this encounter Care Teams Composite Laminator Relationship Specialty Start Date End Date Dony Rao DO [address] [place] [address] PCP - General Internal Medicine 02/09/20 documented as of this encounter
--- OUTSIDE RECORDS SUMMARY | 2025-02-28 13:05 | XMS_ITS | Encounter Summary ---
Author Organization [facility] Address [address] [address] Care Team Providers Care Cooler Room Worker Name Role Phone Unavailable Primary Care Provider Unavailabl e Encounter Details Date Type Department Care Team (Late st Contact Info) Description 06/28/2024 Lab Requisition [facility] [address] [place] [address] Juan José Lozano MD [address] [place] [address] Respiratory failure, unspecified, unspecified whether with hypoxia [...] Diagnosis Comments CBC WITH AUTO DIFFERENTIAL Routine 06/29/2024 4:05 AM EDT Respiratory failure, unspecified, unspecified whether with hypoxia or hypercapnia (CMS/HCC) MANUAL DIFFERENTIAL Routine 06/29/2024 4 :05 AM EDT Respiratory failure, unspecified, unspecified whether with hypoxia or hypercapnia (CMS/HCC) CBC AND DIFFERENTIAL Routine 06/29/2024 4:05 AM EDT MAGNESIUM Routine 06/29/2024 4:05 AM EDT Respiratory failure, unspecified, unspecified whether with hypoxia or hypercapnia (CMS/HCC) BASIC METABOLIC PANEL Routine 06/29/2024 4:05 AM EDT Respiratory failure, unspecified, unspecified whether with hypoxia or hypercapnia (CMS/HCC) documented in this encounter Results * (ABNORMAL) Manual Differential (06/29/2024 4:05 AM EDT) Immature Granulocytes % 0.5 0.0 - 1.0 % 06/29/2024 7:48 AM EDT [facility] ([facility]) Neutrophils Absolute 4.8 1.6 - 7.6 10*3/uL 06/29/2024 7:48 AM EDT [facility] ([facility]) Lymphocytes Absolute 1.13(L) 1.20 - 4.00 10*3/uL 06/29/2024 7:48 AM EDT [facility] ([facility]) Monocytes Absolute 0.46 0.10 - 1.00 10*3/uL 06/29/2024 7:48 AM EDT [facility] ([facility]) Eosinophils Absolute 1.29(H) 0.00 - 0.50 10*3/uL 06/29/2024 7:48 AM EDT [facility] ([facility]) Basophils Absolute 0.03 0.00 - 0.20 10*3/uL 06/29/2024 7:48 AM EDT [facility] ([facility]) Neutrophils % 62.1 40.0 - 72.0 % 06/29/2024 7:48 AM EDT [facility] ([facility]) Lymphocytes % 14.5(L) 20.0 - 45.0 % 06/29/2024 7:48 AM EDT [facility] ([facility]) Monocytes % 5.9 5.0 - 12.0 % 06/29/2024 7:48 AM EDT [facility] ([facility]) Eosinophils % 16.6(H) 0.0 - 6.0 % 06/29/2024 7:48 AM EDT [facility] ([facility]) Basophils % 0.4 0.0 - 1.0 % 06/29/2024 7:48 AM EDT [facility] ([facility]) Immature Granulocytes Absolute 0.04 0.00 - 0.20 10*3/uL 06/29/2024 7:48 AM EDT [facility] ([facility]) Blood Venous blood specimen / Unknown Venipuncture / Unknown 06/29/2024 4:05 AM EDT 06/29/2024 6:32 AM EDT us Juan José Lozano MD LAB BLOOD ORDERABLES Final Result [facility] ([facility]) [address] [id number] * (ABNORMAL) CBC auto differential (06/29/2024 4:05 AM EDT) Auto WBC 7.78 4.00 - 10.60 10*3/uL 06/29/2024 7:08 AM EDT [facility] ([facility]) RBC 3.07(L) 4.20 - 5.70 10*6/uL 06/29/2024 7:08 AM EDT [facility] ([facility]) Hemoglobin 9.4(L) 13.0 - 17.0 g/dL 06/29/2024 7:08 AM EDT [facility] ([facility]) Hematocrit 30.7(L) 39.0 - 55.0 % 06/29/2024 7:08 AM EDT [facility] ([facility]) MCV 100.0(H) 82.0 - 98.0 fL 06/29/2024 7:08 AM EDT [facility] ([facility]) MCH 30.6 27.0 - 33.0 pg 06/29/2024 7:08 AM EDT [facility] ([facility]) MCHC 30.6(L) 32.0 - 35.0 g/dL 06/29/2024 7:08 AM EDT [facility] ([facility]) RDW 15.7(H) 11.5 - 15.0 % 06/29/2024 7:08 AM EDT [facility] ([facility]) Platelets 296 150 - 400 10*3/uL 06/29/2024 7:08 AM EDT [facility] ([facility]) nRBC % 0.0 0 % 06/29/2024 7:08 AM EDT [facility] ([facility]) Immature Platelet Fraction % 4.1 0.8 - 6.3 % 06/29/2024 7:08 AM EDT [facility] ([facility]) Blood Venous blood specimen / Unknown Venipuncture / Unknown 06/29/2024 4:05 AM EDT 06/29/2024 6:32 AM EDT us Juan José Lozano MD LAB BLOOD ORDERABLES Final Result Performing Organization Address City/[facility]/ZIP Co de Phone Number [facility]) [address] [place] [address] * Magnesium (06/29/2024 4:05 AM EDT) Magnesium 2.2 1.9 - 2.7 mg/dL 06/29/2024 7:08 AM EDT [facility] ([facility]) Blood Venous blood specimen / Unknown Venipuncture / Unknown 06/29/2024 4:05 AM EDT 06/29/2024 6:32 AM EDT us Juan José Lozano MD LAB BLOOD ORDERABLES Final Result [facility]) [address] [place], [place] [id number] * (ABNORMAL) Basic metabolic panel (06/29/2024 4:05 AM EDT) Sodium 138 136 - 145 mmol/L 06/29/2024 7:08 AM EDT [facility]) Potassium 3.8 3.5 - 5.1 mmol/L 06/29/2024 7:08 AM EDT [facility] ([facility]) Chloride 102 98 - 107 mmol/L 06/29/2024 7:08 AM EDT [facility] ([facility]) CO2 32(H) 21 - 31 mmol/L 06/29/2024 7:08 AM EDT [facility] ([facility]) BUN 17 7 - 25 mg/dL 06/29/2024 7:08 AM EDT [facility] ([facility]) Creatinine 0.47(L) 0.70 - 1.30 mg/dL 06/29/2024 7:08 AM EDT [facility] ([facility]) Glucose 88 70 - 100 mg/dL 06/29/2024 7:08 AM EDT [facility] ([facility]) Calcium 8.9 8.6 - 10.3 mg/dL 06/29/2024 7:08 AM EDT [facility] ([facility]) Anion Gap 8 7 - 20 mmol/L 06/29/2024 7:08 AM EDT [facility] ([facility]) eGFR 103.1 >60.0 mL/min/1. 73m*2 06/29/2024 7:08 AM EDT [facility] ([facility]) Comment:[facility] s estimated glomerular filtration rate [...] any one group of individuals. BUN/Creatinine Ratio 36.2 06/02 7:08 AM EDT [facility] ([facility]) Blood Venous blood specimen / Unknown Venipuncture / Unknown 06/29/2024 4:05 AM EDT 06/29/2024 6:32 AM EDT us Juan José Lozano MD LAB BLOOD ORDERABLES Final Result [facility] ([facility]) [address] [place] [address] documented in this encounter Visit Diagnoses Diagnosis Respiratory failure, unspecified, unspecified whether with hypoxia or hypercapnia (CMS/HCC) documented in this encounter
--- OUTSIDE RECORDS SUMMARY | 2025-02-28 13:05 | XMS_ITS | Encounter Summary ---
Author Organization [facility] Address [address] [place] [address] Care Team Providers Care Cell Support Operator Name Role Phone Unavailable Primary Care Provider Unavailabl e Encounter Details Date Type Department Care Team (Late st Contact Info) Description 07/13/2024 Lab Requisition [facility] Hospital Lab [address] [place] [address] Juan José Lozano MD [address] [place] [phone] Social History Tobacco Use Types Packs/Day Years Used Date Smoking Tobacco: Never Assessed [place] Safety & Environment Answer Date Rec orded [...] Priority Date/Time Associated Diagnosis Comments CBC Routine 07/16/2024 3:50 AM EST TRIGLYCERIDES Routine 07/16/2024 3:50 AM EST PHOSPHORUS Routine 07/16/2024 3:50 AM EST MAGNESIUM Routine 07/16/2024 3:50 AM EST COMPREHENSIVE METABOLIC PANEL Routine 07/16/2024 3:50 AM EST documented in this encounter Results * Triglycerides (07/16/2024 3:50 AM EST) Triglycerides 106 40 - 149 mg/dL 07/16/2024 7:34 AM EST [facility] ([facility]) Comment: TRIGLYCERIDE REFERENCE RANGE: 20 YEARS AND OLDER CARDIOVASCULAR RISK LESS THAN 150 mg/dL LOW RISK 150 TO 199 mg/dL BORDERLINE RISK 200 mg/dL AND GREATER HIGH RISK Fasting? Unknown 07/16/2024 7:34 AM EST [facility] ([facility]) Blood Venous blood specimen / Unknown Venipuncture / Unknown 07/16/2024 3:50 AM EST 07/16/2024 5:15 AM EST Juan José Lozano MD LAB BLOOD ORDERABLES Final Result Performing Organization Address City/[facility]/ZIP Co de Phone Number [facility]) [address] [place] [address] * (ABNORMAL) Phosphorus (07/16/2024 3:50 AM EST) Phosphorus 2.0(L) 2.5 - 5.0 mg/dL 07/16/2024 5:46 AM EST [facility]) Blood Venous blood specimen / Unknown Venipuncture / Unknown 07/16/2024 3:50 AM EST 07/16/2024 5:15 AM EST Juan José Lozano MD LAB BLOOD ORDERABLES Final Result [facility]) [address], [place] [id number] * (ABNORMAL) Magnesium (07/16/2024 3:50 AM EST) Magnesium 1.8(L) 1.9 - 2.7 mg/dL 07/16/2024 5:46 AM EST [facility]) Blood Venous blood specimen / Unknown Venipuncture / Unknown 07/16/2024 3:50 AM EST 07/16/2024 5:15 AM EST us Juan José Lozano MD LAB BLOOD ORDERABLES Final Result [facility] ([facility]) [address] [place] [address] * (ABNORMAL) CBC (07/16/2024 3:50 AM EST) Auto WBC 8.44 4.00 - 10.60 10*3/uL 07/16/2024 5:25 AM EST [facility] ([facility]) RBC 3.22(L) 4.20 - 5.70 10*6/uL 07/16/2024 5:25 AM EST [facility] ([facility]) Hemoglobin 9.8(L) 13.0 - 17.0 g/dL 07/16/2024 5:25 AM EST [facility] ([facility]) Hematocrit 31.0(L) 39.0 - 55.0 % 07/16/2024 5:25 AM EST [facility] ([facility]) MCV 96.3 82.0 - 98.0 fL 07/16/2024 5:25 AM EST [facility] ([facility]) MCH 30.4 27.0 - 33.0 pg 07/16/2024 5:25 AM EST [facility] ([facility]) MCHC 31.6(L) 32.0 - 35.0 g/dL 07/16/2024 5:25 AM EST [facility] ([facility]) RDW 15.3(H) 11.5 - 15.0 % 07/16/2024 5:25 AM EST [facility] ([facility]) Platelets 323 150 - 400 10*3/uL 07/16/2024 5:25 AM EST [facility] ([facility]) Blood Venous blood specimen / Unknown Venipuncture / Unknown 07/16/2024 3:50 AM EST 07/16/2024 5:15 AM EST us Juan José Lozano MD LAB BLOOD ORDERABLES Final Result [facility] ([facility]) [address] [place] [address] * (ABNORMAL) Comprehensive metabolic panel (07/16/2024 3:50 AM EST) Sodium 134(L) 136 - 145 mmol/L 07/16/2024 5:46 AM EST [facility] ([facility]) Potassium 4.2 3.5 - 5.1 mmol/L 07/16/2024 5:46 AM EST [facility] ([facility]) Chloride 100 98 - 107 mmol/L 07/16/2024 5:46 AM [facility] ([facility]) CO2 31 21 - 31 mmol/L 07/16/2024 5:46 AM [facility] ([facility]) Anion Gap 7 7 - 20 mmol/L 07/16/2024 5:46 AM [facility] ([facility]) BUN 24 7 - 25 mg/dL 07/16/2024 5:46 AM [facility] ([facility]) Creatinine 0.54(L) 0.70 - 1.30 mg/dL 07/16/2024 5:46 AM [facility] ([facility]) BUN/Creatinine Ratio 44.4 07/02 5:46 AM [facility] ([facility]) Glucose 98 70 - 100 mg/dL 07/16/2024 5:46 AM [facility] ([facility]) Calcium 9.9 8.6 - 10.3 mg/dL 07/16/2024 5:46 AM [facility] ([facility]) AST 14 13 - 39 U/L 07/16/2024 5:46 AM [facility] ([facility]) ALT (SGPT) 15 7 - 52 U/L 07/16/2024 5:46 AM [facility] ([facility]) Alkaline Phosphatase 99 34 - 104 U/L 07/16/2024 5:46 AM [facility] ([facility]) Total Protein 7.5 6.0 - 8.3 g/dL 07/16/2024 5:46 AM [facility] ([facility]) Albumin 3.6 3.5 - 5.7 g/dL 07/16/2024 5:46 AM [facility] ([facility]) Total Bilirubin 0.3 0.3 - 1.0 mg/dL 07/16/2024 5:46 AM EST [facility] ([facility]) eGFR 98.9 >60.0 mL/min/1. 73m*2 07/16/2024 5:46 AM EST [facility] ([facility]) Comment:[facility] s estimated glomerular filtration rate (eGFR) [...] blood specimen / Unknown Venipuncture / Unknown 07/16/2024 3:50 AM EST 07/16/2024 5:15 AM EST us Juan José Lozano MD LAB BLOOD ORDERABLES Final Result [facility] ([facility]) [address] [place] [address] documented in this encounter Visit Diagnoses Not on filedocumented in this encounter
--- OUTSIDE RECORDS SUMMARY | 2025-02-28 13:06 | XMS_ITS | Encounter Summary ---
Author Organization [facility] Address [address] [place] [address] Care Team Providers Care Alliance Manager Name Role Phone Unavailable Primary Care Provider Unavailabl e Encounter Details Date Type Department Care Team (Late st Contact Info) Description 06/27/2024 Lab Requisition [facility] Lab [address] [place] [address] Juan José Lozano MD [address] [place] [phone] Social History Tobacco Use Types Packs/Day Years Used Date Smoking Tobacco: Never Assessed [place] Safety & Environment Answer Date Rec orded [...] Diagnosis Comments CBC WITH AUTO DIFFERENTIAL Routine 06/27/2024 5:34 AM EDT CBC AND DIFFERENTIAL Routine 06/27/2024 5:34 AM EDT MAGNESIUM Routine 06/27/2024 5:34 AM EDT COMPREHENSIVE METABOLIC PANEL Routine 06/27/2024 5:34 AM EDT documented in this encounter Results * (ABNORMAL) CBC auto differential (06/27/2024 5:34 AM EDT) Auto WBC 6.60 4.00 - 10.60 10*3/uL 06/27/2024 7:00 AM EDT [facility] ([facility]) RBC 2.81(L) 4.20 - 5.70 10*6/uL 06/27/2024 7:00 AM EDT [facility] ([facility]) Hemoglobin 8.6(L) 13.0 - 17.0 g/dL 06/27/2024 7:00 AM T [facility] ([facility]) Hematocrit 27.8(L) 39.0 - 55.0 % 06/27/2024 7:00 AM T [facility] ([facility]) MCV 98.9(H) 82.0 - 98.0 fL 06/27/2024 7:00 AM [facility] ([facility]) MCH 30.6 27.0 - 33.0 pg 06/27/2024 7:00 AM [facility] ([facility]) MCHC 30.9(L) 32.0 - 35.0 g/dL 06/27/2024 7:00 AM [facility] ([facility]) RDW 15.5(H) 11.5 - 15.0 % 06/27/2024 7:00 AM [facility] ([facility]) Neutrophils % 67.1 40.0 - 72.0 % 06/27/2024 7:00 AM [facility] ([facility]) Lymphocytes % 12.1(L) 20.0 - 45.0 % 06/27/2024 7:00 AM T [facility] ([facility]) Monocytes % 6.5 5.0 - 12.0 % 06/27/2024 7:00 AM T [facility] ([facility]) Eosinophils % 13.5(H) 0.0 - 6.0 % 06/27/2024 7:00 AM T [facility] ([facility]) Basophils % 0.5 0.0 - 1.0 % 06/27/2024 7:00 AM T [facility] ([facility]) Neutrophils Absolute 4.43 1.60 - 7.60 10*3/uL 06/27/2024 7:00 AM EDT [facility] ([facility]) Lymphocytes Absolute 0.80(L) 1.20 - 4.00 10*3/uL 06/27/2024 7:00 AM EDT [facility] ([facility]) Monocytes Absolute 0.43 0.10 - 1.00 10*3/uL 06/27/2024 7:00 AM EDT [facility] ([facility]) Eosinophils Absolute 0.89(H) 0.00 - 0.50 10*3/uL 06/27/2024 7:00 AM EDT [facility] ([facility]) Basophils Absolute 0.03 0.00 - 0.20 10*3/uL 06/27/2024 7:00 AM EDT [facility] ([facility]) Platelets 338 150 - 400 10*3/uL 06/27/2024 7:00 AM EDT [facility] ([facility]) nRBC % 0.0 0 % 06/27/2024 7:00 AM EDT [facility] ([facility]) Immature Granulocytes % 0.3 0.0 - 1.0 % 06/27/2024 7:00 AM EDT [facility] ([facility]) Immature Granulocytes Absolute 0.02 0.00 - 0.20 10*3/uL 06/27/2024 7:00 AM EDT [facility] ([facility]) Blood Venous blood specimen / Unknown 06/27/2024 5:34 AM EDT 06/27/2024 6:37 AM EDT us Juan José Lozano MD LAB BLOOD ORDERABLES Final Result [facility] ([facility]) [address] [place] [address] * Magnesium (06/27/2024 5:34 AM EDT) Magnesium 1.9 1.9 - 2.7 mg/dL 06/27/2024 7:34 AM EDT [facility] ([facility]) Blood Venous blood specimen / Unknown 06/27/2024 5:34 AM EDT 06/27/2024 6:37 AM EDT us Juan José Lozano MD LAB BLOOD ORDERABLES Final Result [facility] ([facility]) [place] [address] * (ABNORMAL) Comprehensive metabolic panel (06/27/2024 5:34 AM EDT) Sodium 141 136 - 145 mmol/L 06/27/2024 7:34 AM EDT [facility] ([facility]) Potassium 3.3(L) 3.5 - 5.1 mmol/L 06/27/2024 7:34 AM EDT [facility] ([facility]) Chloride 103 98 - 107 mmol/L 06/27/2024 7:34 AM EDT [facility] ([facility]) CO2 31 21 - 31 mmol/L 06/27/2024 7:34 AM EDT [facility] ([facility]) Anion Gap 10 7 - 20 mmol/L 06/27/2024 7:34 AM EDT [facility] ([facility]) BUN 13 7 - 25 mg/dL 06/27/2024 7:34 AM EDT [facility] ([facility]) Creatinine 0.47(L) 0.70 - 1.30 mg/dL 06/27/2024 7:34 AM EDT [facility] ([facility]) BUN/Creatinine Ratio 27.7 06/02 7:34 AM EDT [facility] ([facility]) Glucose 114(H) 70 - 100 mg/dL 06/27/2024 7:34 AM EDT [facility] ([facility]) Calcium 8.7 8.6 - 10.3 mg/dL 06/27/2024 7:34 AM EDT [facility] ([facility]) AST 15 13 - 39 U/L 06/27/2024 7:34 AM EDT [facility] ([facility]) ALT (SGPT) 12 7 - 52 U/L 06/27/2024 7:34 AM EDT [facility] ([facility]) Alkaline Phosphatase 119(H) 34 - 104 U/L 06/27/2024 7:34 AM EDT [facility] ([facility]) Total Protein 5.9(L) 6.0 - 8.3 g/dL 06/27/2024 7:34 AM EDT [facility] ([facility]) Albumin 2.9(L) 3.5 - 5.7 g/dL 06/27/2024 7:34 AM EDT [facility] ([facility]) Total Bilirubin 0.4 0.3 - 1.0 mg/dL 06/27/2024 7:34 AM EDT [facility] ([facility]) eGFR 103.1 >60.0 mL/min/1. 73m*2 06/27/2024 7:34 AM EDT [facility] ([facility]) Comment:[facility] s estimated glomerular filtration rate [...] individuals. Blood Venous blood specimen / Unknown 06/27/2024 5:34 AM EDT 06/27/2024 6:37 AM EDT us Juan José Lozano MD LAB BLOOD ORDERABLES Final Result [facility] ([facility]) [address] [place] [address] documented in this encounter Visit Diagnoses Not on filedocumented in this encounter
--- OUTSIDE RECORDS SUMMARY | 2025-02-28 13:06 | XMS_ITS | Encounter Summary ---
Author Organization [facility] Address [address] [place] [address] Care Team Providers Care Warehouse Distribution Manager Name Role Phone Unavailable Primary Care Provider Unavailabl e Encounter Details Date Type Department Care Team (Late st Contact Info) Description 06/20/2024 Lab Requisition [facility] Hospital Lab [address] [place] [address] Juan José Lozano MD [address] [place] [phone] Social History Tobacco Use Types Packs/Day Years Used Date Smoking Tobacco: Never Assessed [place] Safety & Environment Answer Date Rec orded [...] Diagnosis Comments CBC WITH AUTO DIFFERENTIAL Routine 06/25/2024 3:24 AM EDT CBC AND DIFFERENTIAL Routine 06/25/2024 3:24 AM EDT TRIGLYCERIDES Routine 06/25/2024 3:24 AM EDT PHOSPHORUS Routine 06/25/2024 3:24 AM EDT MAGNESIUM Routine 06/25/2024 3:24 AM EDT HEPATIC FUNCTION PANEL Routine 3:24 AM EDT COMPREHENSIVE METABOLIC PANEL Routine 06/25/2024 3:24 AM EDT documented in this encounter Results * (ABNORMAL) CBC auto differential (06/25/2024 3:24 AM EDT) Auto WBC 5.83 4.00 - 10.60 10*3/uL 06/25/2024 6:58 AM EDT [facility] ([facility]) RBC 2.64(L) 4.20 - 5.70 10*6/uL 06/25/2024 6:58 AM EDT [facility] ([facility]) Hemoglobin 8.0(L) 13.0 - 17.0 g/dL 06/25/2024 6:58 AM EDT [facility] ([facility]) Hematocrit 25.5(L) 39.0 - 55.0 % 06/25/2024 6:58 AM EDT [facility] ([facility]) MCV 96.6 82.0 - 98.0 fL 06/25/2024 6:58 AM EDT [facility] ([facility]) MCH 30.3 27.0 - 33.0 pg 06/25/2024 6:58 AM EDT [facility] ([facility]) MCHC 31.4(L) 32.0 - 35.0 g/dL 06/25/2024 6:58 AM EDT [facility] ([facility]) RDW 15.5(H) 11.5 - 15.0 % 06/25/2024 6:58 AM EDT [facility] ([facility]) Neutrophils % 58.9 40.0 - 72.0 % 06/25/2024 6:58 AM EDT [facility] ([facility]) Lymphocytes % 18.0(L) 20.0 - 45.0 % 06/25/2024 6:58 AM EDT [facility] ([facility]) Monocytes % 8.6 5.0 - 12.0 % 06/25/2024 6:58 AM EDT [facility] ([facility]) Eosinophils % 13.9(H) 0.0 - 6.0 % 06/25/2024 6:58 AM EDT [facility] ([facility]) Basophils % 0.3 0.0 - 1.0 % 06/25/2024 6:58 AM EDT [facility] ([facility]) Neutrophils Absolute 3.43 1.60 - 7.60 10*3/uL 06/25/2024 6:58 AM EDT [facility] ([facility]) Lymphocytes Absolute 1.05(L) 1.20 - 4.00 10*3/uL 06/25/2024 6:58 AM EDT [facility] ([facility]) Monocytes Absolute 0.50 0.10 - 1.00 10*3/uL 06/25/2024 6:58 AM EDT [facility] ([facility]) Eosinophils Absolute 0.81(H) 0.00 - 0.50 10*3/uL 06/25/2024 6:58 AM EDT [facility] ([facility]) Basophils Absolute 0.02 0.00 - 0.20 10*3/uL 06/25/2024 6:58 AM EDT [facility] ([facility]) Platelets 286 150 - 400 10*3/uL 06/25/2024 6:58 AM EDT [facility] ([facility]) nRBC % 0.0 0 % 06/25/2024 6:58 AM EDT [facility] ([facility]) Immature Granulocytes % 0.3 0.0 - 1.0 % 06/25/2024 6:58 AM EDT [facility] ([facility]) Immature Granulocytes Absolute 0.02 0.00 - 0.20 10*3/uL 06/25/2024 6:58 AM EDT [facility] ([facility]) Blood Venous blood specimen / Unknown Venipuncture / Unknown 06/25/2024 3:24 AM EDT 06/25/2024 6:30 AM EDT us Juan José Lozano MD LAB BLOOD ORDERABLES Final Result [facility]) [address] [place] [address] * Triglycerides (06/25/2024 3:24 AM EDT) Triglycerides 100 40 - 149 mg/dL 06/25/2024 7:07 AM EDT [facility] ([facility]) Comment: TRIGLYCERIDE REFERENCE RANGE: 20 YEARS AND OLDER CARDIOVASCULAR RISK LESS THAN 150 mg/dL LOW RISK 150 TO 199 mg/dL BORDERLINE RISK 200 mg/dL AND GREATER HIGH RISK Fasting? Unknown 06/25/2024 7:07 AM EDT [facility] ([facility]) Blood Venous blood specimen / Unknown Venipuncture / Unknown 06/25/2024 3:24 AM EDT 06/25/2024 6:27 AM EDT Juan José Lozano MD LAB BLOOD ORDERABLES Final Result Performing Organization Address City/[facility]/ZIP Co de Phone Number [facility]) [address] [phone] * Phosphorus (06/25/2024 3:24 AM EDT) Pathologist [facility] Phosphorus 3.2 2.5 - 5.0 mg/dL 06/25/2024 7:04 AM EDT [facility]) Blood Venous blood specimen / Unknown Venipuncture / Unknown 06/25/2024 3:24 AM EDT 06/25/2024 6:27 AM EDT Juan José Lozano MD LAB BLOOD ORDERABLES Final Result [facility]) [address] [place] [address] * (ABNORMAL) Magnesium (06/25/2024 3:24 AM EDT) Magnesium 1.8(L) 1.9 - 2.7 mg/dL 06/25/2024 7:04 AM EDT [facility]) Blood Venous blood specimen / Unknown Venipuncture / Unknown 06/25/2024 3:24 AM EDT 06/25/2024 6:27 AM EDT us Juan José Lozano MD LAB BLOOD ORDERABLES Final Result [facility] ([facility]) [address] [place] [address] * (ABNORMAL) Comprehensive metabolic panel (06/25/2024 3:24 AM EDT) Sodium 134(L) 136 - 145 mmol/L 06/25/2024 7:04 AM EDT [facility] ([facility]) Potassium 3.5 3.5 - 5.1 mmol/L 06/25/2024 7:04 AM EDT [facility] ([facility]) Chloride 101 98 - 107 mmol/L 06/25/2024 7:04 AM EDT [facility] ([facility]) CO2 29 21 - 31 mmol/L 06/25/2024 7:04 AM EDT [facility] ([facility]) Anion Gap 8 7 - 20 mmol/L 06/25/2024 7:04 AM EDT [facility] ([facility]) BUN 6(L) 7 - 25 mg/dL 06/25/2024 7:04 AM EDT [facility] ([facility]) Creatinine 0.50(L) 0.70 - 1.30 mg/dL 06/25/2024 7:04 AM EDT [facility] ([facility]) BUN/Creatinine Ratio 12.0 06/02 7:04 AM EDT [facility] ([facility]) Glucose 91 70 - 100 mg/dL 06/25/2024 7:04 AM EDT [facility] ([facility]) Calcium 8.4(L) 8.6 - 10.3 mg/dL 06/25/2024 7:04 AM EDT [facility] ([facility]) AST 16 13 - 39 U/L 06/25/2024 7:04 AM EDT [facility] ([facility]) ALT (SGPT) 15 7 - 52 U/L 06/25/2024 7:04 AM EDT [facility] ([facility]) Alkaline Phosphatase 106(H) 34 - 104 U/L 06/25/2024 7:04 AM EDT [facility] ([facility]) Total Protein 5.7(L) 6.0 - 8.3 g/dL 06/25/2024 7:04 AM EDT [facility] ([facility]) Albumin 2.7(L) 3.5 - 5.7 g/dL 06/25/2024 7:04 AM EDT [facility] ([facility]) Total Bilirubin 0.5 0.3 - 1.0 mg/dL 06/25/2024 7:04 AM EDT [facility] ([facility]) eGFR 101.2 >60.0 mL/min/1. 73m*2 06/25/2024 7:04 AM EDT [facility] ([facility]) Comment:[facility] s estimated glomerular filtration rate (eGFR) will [...] blood specimen / Unknown Venipuncture / Unknown 06/25/2024 3:24 AM EDT 06/25/2024 6:27 AM EDT us Juan José Lozano MD LAB BLOOD ORDERABLES Final Result [facility] ([facility]) [address], [place] [id number] * (ABNORMAL) Hepatic function panel (06/25/2024 3:24 AM EDT) Total Bilirubin 0.5 0.3 - 1.0 mg/dL 06/25/2024 7:04 AM EDT [facility] ([facility]) Bilirubin, Direct 0.1 0 - 0.2 mg/dL 06/25/2024 7:04 AM EDT [facility]) Alkaline Phosphatase 106(H) 34 - 104 U/L 06/25/2024 7:04 AM EDT [facility]) AST 16 13 - 39 U/L 06/25/2024 7:04 AM EDT [facility] ([facility]) ALT (SGPT) 15 7 - 52 U/L 06/25/2024 7:04 AM EDT [facility]) Total Protein 5.7(L) 6.0 - 8.3 g/dL 06/25/2024 7:04 AM EDT [facility]) Albumin 2.7(L) 3.5 - 5.7 g/dL 06/25/2024 7:04 AM EDT [facility]) Blood Venous blood specimen / Unknown Venipuncture / Unknown 06/25/2024 3:24 AM EDT 06/25/2024 6:27 AM EDT us Juan José Lozano MD LAB BLOOD ORDERABLES Final Result [facility] ([facility]) [address] [place] [address] documented in this encounter Visit Diagnoses Not on filedocumented in this encounter
--- OUTSIDE RECORDS SUMMARY | 2025-02-28 13:06 | XMS_ITS | Encounter Summary ---
Author Organization [employer] Address [id number] [address] [place] [address] Care Team Providers Care Learning Developer Name Role Phone Dony Rao Primary Care Provider [phone] Encounter Details Date Type Department Care Team (Late st Contact Info) Description 05/31/2020 Telephone [facility] [address] [facility] [address] [place] [id number] Eloisa Hayes RN Social History Tobacco Use Types Packs/Day Years Used Date Smoking Tobacco: Every Day Cigarettes Smokeless Tobacco: Never Comments:Down to 2-3 cigarre ttes/day Alcohol Use Standard Drinks/Week Comments Yes 14 (1 standard drink = 0.6 oz pu re alcohol) PHQ-2 Answer Date Recorded Total Score 0 03/15/2020 Childcare Answer Date Recorded Childcare Unknown 04/19/2019 Employment Answer Date Recorded Employment Unknown 04/19/2019 Sex and Gender Information Value Date Recorded Sex Assigned at Not on file Legal Sex Male 9:17 AM EDT Gender Identity Not on file Sexual Orientation Not on file Occupation Industry Job Start Date Job End Date [employer]ired [employer] Not on file Not on file Not on file COVID-19 Exposure Response Date Recorded In the last month, have you been in contact with someone who was confirmed or suspected to have Coronavirus / COVID-19? No / Unsure 05/30/2020 2:21 PM EDT documented as of this encounter Miscellaneous Notes * Telephone Encounter - Eloisa Hayes RN - 05/31/2020 9:57 AM EDT ----- Message from Darrell Shaw MD sent at 05/31/2020 8:50 AM EDT ----- Results noted. Will ask [facility] to contact patient or his with results. Factor 8 level remains normal at 181%. Factor 8 inhibitor is pending. Remain off steroids. Repeat labs in 4 weeks and then if stable will space labs out to every 3 months. * Telephone Encounter - Eloisa Hayes RN - 05/31/2020 9:57 AM EDT PC to patient re: results. Phone rang once and then line went x 2 attempts. * Telephone Encounter - Radha Bowman RN - 05/31/2020 9:57 AM EDT Incoming call from patients . Notified of labs and recommendations regarding follow up lab work. asks if they can cancel appt in June since his labs are okay. Discussed with Dr Shaw. Ptwill have labs repeated in 1 month and if those are okay, we will space out to every 3 months and see them then which would be around end of September. Will forward to front desk monitor. Radha Bowman RN 05/31/20 1057 * Telephone Encounter - Rebecca Cameron - 05/31/2020 9:57 AM EDT hes all set thanks. documented in this encounter Plan of Treatment Not on [...] documented as of this encounter Care Teams Learning Developer Relationship Specialty Start Date End Date Dony Rao DO [address] [place] [address] PCP - General Internal Medicine 02/09/20 documented as of this encounter
--- OUTSIDE RECORDS SUMMARY | 2025-02-28 13:06 | XMS_ITS | Encounter Summary ---
Author Organization [facility] Address [address] [place] [address] Care Team Providers Care Thread Milling Machine Set Up Operator Name Role Phone Unavailable Primary Care Provider Unavailabl e Encounter Details Date Type Department Care Team (Late st Contact Info) Description 06/16/2024 Lab Requisition [facility] [address] [place] [address] Juan José Lozano MD [address] [place] [address] Social History Tobacco Use Types Packs/Day Years [...] Priority Date/Time Associated Diagnosis Comments CBC Routine 06/16/2024 9:30 AM EDT BASIC METABOLIC PANEL Routine 06/16/2024 9:30 AM EDT documented in this encounter Results * (ABNORMAL) Basic metabolic panel (06/16/2024 9:30 AM EDT) Sodium 134(L) 136 - 145 mmol/L 06/16/2024 10:40 AM EDT [facility] ([facility]) Potassium 4.6 3.5 - 5.1 mmol/L 06/16/2024 10:40 AM EDT [facility] ([facility]) Chloride 100 98 - 107 mmol/L 06/16/2024 10:40 AM EDT [facility] ([facility]) CO2 28 21 - 31 mmol/L 06/16/2024 10:40 AM EDT [facility] ([facility]) BUN 28(H) 7 - 25 mg/dL 06/16/2024 10:40 AM T [facility] ([facility]) Creatinine 0.65(L) 0.70 - 1.30 mg/dL 06/16/2024 10:40 AM T [facility] ([facility]) Glucose 120(H) 70 - 100 mg/dL 06/16/2024 10:40 AM T [facility] ([facility]) Calcium 8.7 8.6 - 10.3 mg/dL 06/16/2024 10:40 AM [facility] ([facility]) Anion Gap 11 7 - 20 mmol/L 06/16/2024 10:40 AM [facility] ([facility]) eGFR 93.5 >60.0 mL/min/1. 73m*2 06/16/2024 10:40 AM T [facility] ([facility]) Comment:[facility] s estimated glomerular filtration rate [...] any one group of individuals. BUN/Creatinine Ratio 43.1 06/01 10:40 AM T [facility] ([facility]) Blood Venous blood specimen / Unknown Venipuncture / Unknown 06/16/2024 9:30 AM EDT 06/16/2024 10:08 AM EDT Juan José Lozano MD LAB BLOOD ORDERABLES Final Result [facility] ([facility]) [address] [place], [place] [id number] * (ABNORMAL) CBC (06/16/2024 9:30 AM EDT) Auto WBC 10.51 4.00 - 10.60 10*3/uL 06/16/2024 10:26 AM EDT [facility] ([facility]) RBC 2.85(L) 4.20 - 5.70 10*6/uL 06/16/2024 10:26 AM EDT [facility] ([facility]) Hemoglobin 8.6(L) 13.0 - 17.0 g/dL 06/16/2024 10:26 AM EDT [facility] ([facility]) Hematocrit 27.8(L) 39.0 - 55.0 % 06/16/2024 10:26 AM EDT [facility] ([facility]) MCV 97.5 82.0 - 98.0 fL 06/16/2024 10:26 AM EDT [facility] ([facility]) MCH 30.2 27.0 - 33.0 pg 06/16/2024 10:26 AM EDT [facility] ([facility]) MCHC 30.9(L) 32.0 - 35.0 g/dL 06/16/2024 10:26 AM EDT [facility] ([facility]) RDW 16.3(H) 11.5 - 15.0 % 06/16/2024 10:26 AM EDT [facility] ([facility]) Platelets 246 150 - 400 10*3/uL 06/16/2024 10:26 AM EDT [facility] ([facility]) Blood Venous blood specimen / Unknown Venipuncture / Unknown 06/16/2024 9:30 AM EDT 06/16/2024 10:08 AM EDT us Juan José Lozano MD LAB BLOOD ORDERABLES Final Result [facility] ([facility]) [address], [place] [id number] documented in this encounter Visit Diagnoses Not on filedocumented in this encounter
--- OUTSIDE RECORDS SUMMARY | 2025-02-28 13:06 | XMS_ITS | Encounter Summary ---
Author Organization [facility] Address [id number] [address] [place] [address] Care Team Providers Care Professor Of Apologetics Name Role Phone Dony Rao Primary Care Provider [phone] Encounter Details Date Type Department Care Team (Late st Contact Info) Description 07/05/2020 Telephone [facility] [address] [place] [address] Vladimir Michaels MD [address] [facility] PER OM 02/25/2025 [place] [address] Social History Tobacco Use Types Packs/Day Years [...] or suspected to have Coronavirus / COVID-19? Unable to assess 07/07/2020 3:21 PM EST documented as of this encounter Miscellaneous Notes * Telephone Encounter - Anju Campos - 07/05/2020 3:09 PM EST Upon calling patient to confirm appt Saturday 07/07- states it is supposed to be a telephone visit. It is in [facility] as office visit. I told her I would double check with Dr Michaels's team and get backto her to confirm. Please advise if this is to be Telephone Encounter. Thank you. * Telephone Encounter - SIMRAN Wagner - 07/05/2020 3:09 PM EST Yes the appointment is suppose to be a telephone encounter my mistake I will fix that. Thank you. * Telephone Encounter - Anju Campos - 07/05/2020 3:09 PM EST I beat you to it. Appt type changed in [facility]. documented in this encounter Plan of Treatment [...] documented as of this encounter Care Teams Professor Of Apologetics Relationship Specialty Start Date End Date Dony Rao DO [address] [place] [address] PCP - General Internal Medicine 02/09/20 documented as of this encounter
--- OUTSIDE RECORDS SUMMARY | 2025-02-28 13:06 | XMS_ITS | Encounter Summary ---
Author Organization [facility] Address [address] [place] [address] Care Team Providers Care Flexible Nanny Name Role Phone Unavailable Primary Care Provider Unavailabl e Encounter Details Date Type Department Care Team (Late st Contact Info) Description 06/11/2024 Lab Requisition [facility] [address] [place] [address] Juan José Lozano MD [address] [place] [id number] Social History Tobacco Use Types Packs/Day Years Used Date Smoking Tobacco: Never Assessed [place] Safety & Environment Answer Date Rec orded [...] Diagnosis Comments CBC WITH AUTO DIFFERENTIAL Routine 06/11/2024 5:00 AM EDT CBC AND DIFFERENTIAL Routine 06/11/2024 5:00 AM EDT PHOSPHORUS Routine 06/11/2024 5:00 AM EDT MAGNESIUM Routine 06/11/2024 5:00 AM EDT COMPREHENSIVE METABOLIC PANEL Routine 06/11/2024 5:00 AM EDT documented in this encounter Results * (ABNORMAL) CBC auto differential (06/11/2024 5:00 AM EDT) Auto WBC 10.61(H) 4.00 - 10.60 10*3/uL 06/11/2024 6:03 AM EDT [facility] ([facility]) RBC 3.32(L) 4.20 - 5.70 10*6/uL 06/11/2024 6:03 AM EDT [facility] ([facility]) Hemoglobin 10.2(L) 13.0 - 17.0 g/dL 06/11/2024 6:03 AM EDT [facility] ([facility]) Hematocrit 32.4(L) 39.0 - 55.0 % 06/11/2024 6:03 AM EDT [facility] ([facility]) MCV 97.6 82.0 - 98.0 fL 06/11/2024 6:03 AM EDT [facility] ([facility]) MCH 30.7 27.0 - 33.0 pg 06/11/2024 6:03 AM EDT [facility] ([facility]) MCHC 31.5(L) 32.0 - 35.0 g/dL 06/11/2024 6:03 AM T [facility] ([facility]) RDW 16.7(H) 11.5 - 15.0 % 06/11/2024 6:03 AM EDT [facility] ([facility]) Neutrophils % 74.3(H) 40.0 - 72.0 % 06/11/2024 6:03 AM EDT [facility] ([facility]) Lymphocytes % 10.3(L) 20.0 - 45.0 % 06/11/2024 6:03 AM EDT [facility] ([facility]) Monocytes % 7.5 5.0 - 12.0 % 06/11/2024 6:03 AM EDT [facility] ([facility]) Eosinophils % 4.9 0.0 - 6.0 % 06/11/2024 6:03 AM EDT [facility] ([facility]) Basophils % 0.4 0.0 - 1.0 % 06/11/2024 6:03 AM EDT [facility] ([facility]) Neutrophils Absolute 7.88(H) 1.60 - 7.60 10*3/uL 06/11/2024 6:03 AM EDT [facility] ([facility]) Lymphocytes Absolute 1.09(L) 1.20 - 4.00 10*3/uL 06/11/2024 6:03 AM EDT [facility] ([facility]) Monocytes Absolute 0.80 0.10 - 1.00 10*3/uL 06/11/2024 6:03 AM EDT [facility] ([facility]) Eosinophils Absolute 0.52(H) 0.00 - 0.50 10*3/uL 06/11/2024 6:03 AM EDT [facility] ([facility]) Basophils Absolute 0.04 0.00 - 0.20 10*3/uL 06/11/2024 6:03 AM EDT [facility] ([facility]) Platelets 307 150 - 400 10*3/uL 06/11/2024 6:03 AM EDT [facility] ([facility]) nRBC % 0.0 0 % 06/11/2024 6:03 AM EDT [facility] ([facility]) Immature Granulocytes % 2.6(H) 0.0 - 1.0 % 06/11/2024 6:03 AM EDT [facility] ([facility]) Immature Granulocytes Absolute 0.28(H) 0.00 - 0.20 10*3/uL 06/11/2024 6:03 AM EDT [facility] ([facility]) Blood Venous blood specimen / Unknown Venipuncture / Unknown 06/11/2024 5:00 AM EDT 06/11/2024 5:40 AM EDT us Juan José Lozano MD LAB BLOOD ORDERABLES Final Result [facility] ([facility]) [address] [facility] [place], [place] [id number] * Phosphorus (06/11/2024 5:00 AM EDT) Phosphorus 2.7 2.5 - 5.0 mg/dL 06/11/2024 6:54 AM EDT [facility] ([facility]) Blood Venous blood specimen / Unknown Venipuncture / Unknown 06/11/2024 5:00 AM EDT 06/11/2024 5:40 AM EDT Juan José Lozano MD LAB BLOOD ORDERABLES Final Result [facility] ([facility]) [address] [place] [address] * Magnesium (06/11/2024 5:00 AM EDT) Magnesium 2.0 1.9 - 2.7 mg/dL 06/11/2024 6:54 AM EDT [facility] ([facility]) Blood Venous blood specimen / Unknown Venipuncture / Unknown 06/11/2024 5:00 AM EDT 06/11/2024 5:40 AM EDT Juan José Lozano MD LAB BLOOD ORDERABLES Final Result Performing Organization Address City/[facility]/ZIP Co de Phone Number [facility] ([facility]) [address] [place] [address] * (ABNORMAL) Comprehensive metabolic panel (06/11/2024 5:00 AM EDT) Sodium 134(L) 136 - 145 mmol/L 06/11/2024 6:54 AM EDT [facility] ([facility]) Potassium 3.7 3.5 - 5.1 mmol/L 06/11/2024 6:54 AM EDT [facility] ([facility]) Chloride 100 98 - 107 mmol/L 06/11/2024 6:54 AM EDT [facility] ([facility]) CO2 30 21 - 31 mmol/L 06/11/2024 6:54 AM EDT [facility] ([facility]) Anion Gap 8 7 - 20 mmol/L 06/11/2024 6:54 AM EDT [facility] ([facility]) BUN 29(H) 7 - 25 mg/dL 06/11/2024 6:54 AM [facility] ([facility]) Creatinine 0.78 0.70 - 1.30 mg/dL 06/11/2024 6:54 AM [facility] ([facility]) BUN/Creatinine Ratio 37.2 06/01 6:54 AM [facility] ([facility]) Glucose 109(H) 70 - 100 mg/dL 06/11/2024 6:54 AM [facility] ([facility]) Calcium 8.3(L) 8.6 - 10.3 mg/dL 06/11/2024 6:54 AM [facility] ([facility]) AST 19 13 - 39 U/L 06/11/2024 6:54 AM [facility] ([facility]) ALT (SGPT) 17 7 - 52 U/L 06/11/2024 6:54 AM [facility] ([facility]) Alkaline Phosphatase 150(H) 34 - 104 U/L 06/11/2024 6:54 AM [facility] ([facility]) Total Protein 5.5(L) 6.0 - 8.3 g/dL 06/11/2024 6:54 AM [facility] ([facility]) Albumin 2.9(L) 3.5 - 5.7 g/dL 06/11/2024 6:54 AM [facility] ([facility]) Total Bilirubin 0.5 0.3 - 1.0 mg/dL 06/11/2024 6:54 AM [facility] ([facility]) eGFR 88.5 >60.0 mL/min/1. 73m*2 06/11/2024 6:54 AM [facility] ([facility]) Comment:[facility] s estimated glomerular filtration rate [...] blood specimen / Unknown Venipuncture / Unknown 06/11/2024 5:00 AM EDT 06/11/2024 5:40 AM EDT us Juan José Lozano MD LAB BLOOD ORDERABLES Final Result [facility] ([facility]) [address] [place] [address] documented in this encounter Visit Diagnoses Not on filedocumented in this encounter
--- OUTSIDE RECORDS SUMMARY | 2025-02-28 13:06 | XMS_ITS | Encounter Summary ---
Author Organization [facility] Address [address] [place] [address] Care Team Providers Care Class C Truck Driver Name Role Phone Unavailable Primary Care Provider Unavailabl e Encounter Details Date Type Department Care Team (Late st Contact Info) Description 06/17/2024 Lab Requisition [facility] [address] [place] [address] Juan José Lozano MD [facility] [place] [address] Respiratory failure, unspecified, unspecified whether with hypoxia or hypercapnia (CMS/HCC) Social History Tobacco Use Types Packs/Day Years Used Date Smoking Tobacco: Never Assessed [place] Safety & Environment Answer Date Rec orded [...] Procedure Name Priority Date/Time Associated Diagnosis Comments SPUTUM CULTURE Routine 06/17/2024 10:10 AM EDT Respiratory failure, unspecified, unspecified whether with hypoxia or hypercapnia (CMS/HCC) documented in this encounter Results * Sputum culture (06/17/2024 10:10 AM EDT) Gram Stain Result 10-25 Epithelial cells per low power field 06/20/2024 6:[address] [facility] ([facility]) Gram Stain Result >25 Polys Per Low Power Field 06/20/2024 6:[address] [facility]) Gram Stain Result Moderate Gram positive cocci in clusters 06/20/2024 6:[address] [facility] ([facility]) Gram Stain Result Few Gram positive cocci in chains 06/20/2024 6:[address] [facility] ([facility]) Sputum 06/17/2024 10:1 0 AM EDT 06/17/2024 4:30 PM EDT Narrative [facility] ([facility]) - 06/20/2024 6:27 AM EDT Moderate Growth Colonies Consistent with Upper Respiratory [place] us Juan José Lozano MD LAB MICROBIOLOGY - GENERAL ORDERABLES Final Result [facility] ([facility]) [address] [place] [id number] documented in this encounter Visit Diagnoses Diagnosis Respiratory failure, unspecified, unspecified whether with hypoxia or hypercapnia (CMS/HCC) documented in this encounter
--- OUTSIDE RECORDS SUMMARY | 2025-02-28 13:06 | XMS_ITS | Clinical Summary ---
Author Organization [facility] Address [address] [place] [address] Care Team Providers Care Behavioral Health Counselor Name Role Phone Unavailable Primary Care Provider Unavailabl e Social History Tobacco Use Types Packs/Day Years Used Date Smoking Tobacco: Never Assessed Sex and Gender Information Value Date Recorded Sex Assigned at Not on file Legal Sex Male 3:07 PM EDT Gender Identity Not on file Sexual Orientation Not on file Plan of Treatment Not on file
--- OUTSIDE RECORDS SUMMARY | 2025-02-28 13:06 | XMS_ITS | Encounter Summary ---
Author Organization [facility] Address [address] [place] [address] Care Team Providers Care Divine Healer Name Role Phone Unavailable Primary Care Provider Unavailabl e Encounter Details Date Type Department Care Team (Late st Contact Info) Description 06/24/2024 Lab Requisition [facility] Lab [address] [place] [address] Juan José Lozano MD [address] [place] [id number] Social History Tobacco Use Types Packs/Day Years Used Date Smoking Tobacco: Never Assessed CA Safety & Environment Answer Date Rec orded [...] Procedure Name Priority Date/Time Associated Diagnosis Comments COMPREHENSIVE METABOLIC PANEL Routine 06/28/2024 5:00 AM EDT CBC Routine 06/28/2024 4:30 AM EDT documented in this encounter Results * (ABNORMAL) Comprehensive metabolic panel (06/28/2024 5:00 AM EDT) Sodium 142 136 - 145 mmol/L 06/28/2024 7:50 AM EDT [facility] ([facility]) Potassium 3.1(L) 3.5 - 5.1 mmol/L 06/28/2024 7:50 AM [facility] ([facility]) Chloride 103 98 - 107 mmol/L 06/28/2024 7:50 AM [facility] ([facility]) CO2 36(H) 21 - 31 mmol/L 06/28/2024 7:50 AM [facility] ([facility]) Anion Gap 6(L) 7 - 20 mmol/L 06/28/2024 7:50 AM [facility] ([facility]) BUN 18 7 - 25 mg/dL 06/28/2024 7:50 AM [facility] ([facility]) Creatinine 0.46(L) 0.70 - 1.30 mg/dL 06/28/2024 7:50 AM [facility] ([facility]) BUN/Creatinine Ratio 39.1 06/02 7:50 AM [facility] ([facility]) Glucose 113(H) 70 - 100 mg/dL 06/28/2024 7:50 AM [facility] ([facility]) Calcium 8.6 8.6 - 10.3 mg/dL 06/28/2024 7:50 AM [facility] ([facility]) AST 13 13 - 39 U/L 06/28/2024 7:50 AM [facility] ([facility]) ALT (SGPT) 13 7 - 52 U/L 06/28/2024 7:50 AM [facility] ([facility]) Alkaline Phosphatase 110(H) 34 - 104 U/L 06/28/2024 7:50 AM [facility] ([facility]) Total Protein 5.5(L) 6.0 - 8.3 g/dL 06/28/2024 7:50 AM [facility] ([facility]) Albumin 2.7(L) 3.5 - 5.7 g/dL 06/28/2024 7:50 AM [facility] ([facility]) Total Bilirubin 0.3 0.3 - 1.0 mg/dL 06/28/2024 7:50 AM [facility] ([facility]) eGFR 103.8 >60.0 mL/min/1. 73m*2 06/28/2024 7:50 AM EDT [facility] ([facility]) Comment:[facility] [...] blood specimen / Unknown Venipuncture / Unknown 06/28/2024 5:00 AM EDT 06/28/2024 6:38 AM EDT us Juan José Lozano MD LAB BLOOD ORDERABLES Final Result [facility] ([facility]) [address] [place] [address] * (ABNORMAL) CBC (06/28/2024 4:30 AM EDT) Auto WBC 7.43 4.00 - 10.60 10*3/uL 06/28/2024 7:08 AM EDT [facility] ([facility]) RBC 2.75(L) 4.20 - 5.70 10*6/uL 06/28/2024 7:08 AM EDT [facility] ([facility]) Hemoglobin 8.4(L) 13.0 - 17.0 g/dL 06/28/2024 7:08 AM EDT [facility] ([facility]) Hematocrit 26.8(L) 39.0 - 55.0 % 06/28/2024 7:08 AM EDT [facility] ([facility]) MCV 97.5 82.0 - 98.0 fL 06/28/2024 7:08 AM EDT [facility] ([facility]) MCH 30.5 27.0 - 33.0 pg 06/28/2024 7:08 AM EDT [facility] ([facility]) MCHC 31.3(L) 32.0 - 35.0 g/dL 06/28/2024 7:08 AM EDT [facility] (ELANA) RDW 15.6(H) 11.5 - 15.0 % 06/28/2024 7:08 AM EDT [facility] (JEFF) Platelets 330 150 - 400 10*3/uL 06/28/2024 7:08 AM EDT [facility] ([facility]) Blood Venous blood specimen / Unknown Venipuncture / Unknown 06/28/2024 4:30 AM EDT 06/28/2024 6:41 AM EDT us Juan José Lozano MD LAB BLOOD ORDERABLES Final Result [facility] (EL[facility]) [address] [place], [place] [id number] documented in this encounter Visit Diagnoses Not on filedocumented in this encounter
--- OUTSIDE RECORDS SUMMARY | 2025-02-28 13:06 | XMS_ITS | Encounter Summary ---
Author Organization [facility] Address [id number] [address] [place] [address] Care Team Providers Care Avaya Engineer Name Role Phone Dony Rao Tobias CHIANG Primary Care Provider [phone] Encounter Details Date Type Department Care Team (Late st Contact Info) Description 07/03/2020 Telephone [facility] [address] [place] [address] Shabana Bustos RN Social History Tobacco Use Types Packs/Day [...] Job Start Date Job End Date Retired [employer] Not on file Not on file Not on file COVID-19 Exposure Response Date Recorded In the last month, have you been in contact with someone who was confirmed or suspected to have Coronavirus / COVID-19? Unable to assess 07/06/2020 3:38 PM EST documented as of this encounter Plan of [...] documented as of this encounter Care Teams Avaya Engineer Relationship Specialty Start Date End Date Dony Rao DO [address] [place] [address] PCP - General Internal Medicine 02/09/20 documented as of this encounter
[2025-02-28 13:54] LABS: Alanine Aminotransferase 20 U/L (16-63); Albumin Level 3.6 g/dL (3.4-5.0); Alkaline Phosphatase 95 U/L (46-116); Aspartate Amino Transferase 18 U/L (15-37); BUN Creatinine Ratio 29.6; Basophils Percent Auto 0.4 % (0.2-2.0); Bilirubin Total 0.4 mg/dL (0.2-1.0); Calcium 9.6 mg/dL (8.5-10.1); Carbon Dioxide 32.1 mmol/L (21.0-32.0); Chloride 94 mmol/L (98-107); Chol HDL Ratio 1.8; Cholesterol 152 mg/dL (<=200); Eosinophils Absolute Auto 0.5 10^3/uL (0.0-0.7); Estimated GFR (African America >60 (>=60 mL/min/1.73m^2); Estimated GFR (Non-African Ame >60 (>=60 mL/min/1.73m^2); Globulin 3.5 g/dL; Glucose 101 mg/dL (74-106); HDL Cholesterol 86 mg/dL (40-60); Hemoglobin 15.7 g/dL (14.0-18.0); Immature Granulocytes Abs Auto 0.01 10^3/uL (0.00-0.03); Immature Granulocytes Pct Auto 0.2 % (0.0-0.5); Lymphocytes Absolute Auto 0.7 10^3/uL (1.2-3.8); Lymphocytes Percent Auto 12.4 % (20.5-60.0); Mean Corpuscular HGB Conc 33.4 g/dL (29.9-35.2); Mean Corpuscular Hemoglobin 34.2 pg (25.9-34.0); Mean Corpuscular Volume 102.4 fL (80.0-94.0); Mean Platelet Volume 8.7 fL (9.5-13.5); Monocytes Absolute Auto 0.4 10^3/uL (0.3-0.8); Monocytes Percent Auto 7.6 % (1.7-12.0); Neutrophils Absolute Auto 4.1 10^3/uL (1.4-6.5); Neutrophils Percent Auto 71.4 % (43.0-75.0); Platelet Count 206 10^3/uL (150-450); Potassium 5.1 mmol/L (3.5-5.1); Red Blood Count 4.59 10^6/uL (4.70-6.10); Sodium 130 mmol/L (136-145); Total Protein 7.1 g/dL (6.4-8.2); Triglycerides 96 mg/dL (<=150); VLDL CHOLESTEROL 19.2 mg/dL; White Blood Count 5.7 10^3/uL (4.0-11.0)
== END 2025-02-28 13:01 | disposition home or self-care (01) ==
LOC: LAB 13:02
PROVIDERS: PCP Internal Medicine; Visit Provider Internal Medicine
DX: I25.10 Atherosclerotic heart disease of native coronary artery without angina pectoris (principal); I10 Essential (primary) hypertension; E78.00 Pure hypercholesterolemia, unspecified; D68.311 Acquired hemophilia
CPT/HCPCS: 36415; 80053; 80061; 85025

== ENCOUNTER 2025-07-06 16:34 | Inpatient (IN) | payer MEDICARE, OTHER, SELFPAY ==
[2025-07-06] VITALS (21 sets, daily range): BP systolic 72–107; BP diastolic 40–74; PULSE 59–107; TEMP 36.3–36.6; O2SAT 95–96; BMI 19.8; BMI 19.3
--- OUTSIDE RECORDS SUMMARY | 2025-07-06 11:26 | XMS_ITS | Continuity of Care Document ---
Author Organization [facility] Address [address] [place] [address] Phone Care Team Providers Care Locomotive Lubricating Systems Clerk Name Role Phone Dony Rao DO Primary Care Provider Dony Rao DO Attending Provider Care Teams Patient Care Team Team Status: Active Member Role/Relationship Status Dates Dony Rao DO Primary Care Provider Active Patient Care Team Team Status: Inactive Member Role/Relationship Status Dates Dony Rao DO Primary Care Provider Active Start: July 06, 2025 End: July 06enjakisha Rao DOAttending ProviderActiveStart: July 06, 2025 End: July 06, 2025 Chief Complaint and Reason for Visit Chief Complaint Admit Date diarrhea July 06, 2025 3 :39pm Allergies, Adverse Reactions, Alerts Allergen Type Severity Reaction Last Updated Verified Status No Known Allergies Allergy Unknown January 17, 2025 1:26pmYesActive Social History Smoking Status Status Start Date End Date Date of Observa tion Current some day smoker January 17, 2025 3:39pm Observation Status Observation Response Date of Response Legal Sex Male (finding) Sex Assigned At BirthMaleSeptember 1939 Problems Active Problems Problem Diagnosis/Recorded Date Onset Date Status C omments Medicare annual wellness vis it, subsequent January 17, 2025 8:29pm Unknown Active Nicotine dependenceApril 2023 1:18pmUnknownActiveMucopurulent chronic bronchitisApril 2023 1:17pmUnknownActiveElevated cholesterolApril 2023 1:17pmUnknownActivePulmonary noduleApril 2023 1:17pmUnknownActiveCT: 9mm nodule EMMIE - 06/2023,CT: unchanged - 12/2023,Essential (primary) hypertension December 11, 2023 1:17pmUnknownActiveLumbar spondylosisApril 2023 1:17pm UnknownActiveASHD (arteriosclerotic heart disease)December 11, 2023 1:17pmUnknown ActiveAcquired hemophilia AApril 2023 1:17pmUnknownActive Medications Medication Status Dose Units Route Directions Qty Days Refills S tart Date Stop Date End Date Reason(s) Instructions Adherence Lisinopril 40 mg tablet Discontinued 0 .ROUTE.UOGCDWM948Clt2023 6:34amJuly 2024 6:42amTAKE 1 TABLET BY MOUTH EVERY DAYMetoprolol Succinate 25 mg tablet extended release 24 hr Discontinued0.ROUTE.TFRCJBY461Xup2023 6:34amJuly 2024 6:42amTAKE 1 TABLET BY MOUTH EVERY DAYMupirocin 2 % dhoytcqiWyvvpq0MWKZOQSQFYLHGMuosa daily22 100June 2024 11:00pmUnknownMetoprolol Succinate 25 mg tablet extended release 24 hrActive0.ROUTE.QOFRKOF634Vxcz 2024 6:42amTAKE 1 TABLET BY MOUTH EVERY DAYUnknownLisinopril 40 mg tabletActive0.ROUTE.ZKCRATK246Gvfk 30th, 2025 6:42amTAKE 1 TABLET BY MOUTH EVERY DAYUnknownBiotin 10,000 mcg capsule ActiveMCGPOApril 2023 11:00pmUnknownLisinopril 40 mg kuspydGahhohfquujx30 MGPODailyApril 2023 11:00pmMay 2023 6:34amMetoprolol Succinate 25 mg tablet extended release 24 xkTsqkdvbqwtpm78YSAJNwdpxVqprj 2023 11:00pmMay 2023 6:34amEsomeprazole Magnesium (Nexium) 20 mg capsule,delayed release(DR/EC)Ppjyajlbdsnf16QUKNXovcxBxhwz 2023 11:00pmApril 2023 12:57pmAlbuterol Sulfate 90 mcg/actuation HFA aerosol ztsyraoKmqmzx0WLNP INHALATIONEvery 4 hours as neededApril 2023 11:00pmUnknownNiacinamide 500 mg xdrkqaPnhfju045OLPKWlgwoKxfku 2023 11:00pmUnknownPrednisone 10 mg bfwkqwMegktrylgamd68HSFBOophoPfbpp 2023 11:00pmApril 2023 12:58pm Psyllium Husk 0.4 gram capsuleDiscontinued0.4GMPODailyApril 2023 11:00pm December 12, 2023 12:58pmSennosides 8.6 mg yqmkniHuxsuomtqoaw61.2MGPODaily at bedtime as neededApril 2023 11:00pmApril 2023 12:58pmAcetaminophen (Tylenol Extra Strength) 500 mg ovpkofOuabao477BDLCUsgxw 6 hours as neededApril 2023 11:00pmUnknownAscorbic Acid (Vitamin C) 500 mg tablet,chewableActive 500MGPODailyApril 2023 11:00pmUnknownCholecalciferol (Vitamin D3) 25 mcg (1,000 unit) nhaygajZjjvsf74KBKGUGvvngPvtrg 2023 11:00pmUnknown Immunizations Immunization Event Date Not Given Reason Dose Number Patient Relations Manager Lot Number Reason(s) Given Vaccine Information Statement (VIS) Detail Administration Location influenza, unspecified formulation August 02, 2020 influenza, unspecified formulationOctober 2020influenza, unspecified formulationOctober neumococcal Conjugate Vaccine, 20 valentJuly 2022 Vital Signs Vital Reading Result Reference Range Collection Date/Time Height 68 [in_i] July 06, 2025 3:40wbMclksn77.96 kgNov2024 3:51pmHeart Rate50 /zrf61-287Gjzremdp 5th, 2025 3:51pmRespiratory rate12 /fpz39-31Cmoehxui 5th, 2025 3:51pmBP Gtvjogmw39 mm[Hg]100-140Nov2024 3:51pmBP Hffkchwar95 mm[Hg]60-100Nov2024 3:51pmBMI (Body Mass Index)18.7 kg/j2Dtidwwhs2024 3:51pm Advance Directives Advance Directive Response Recorded Date/ Time Advance Directives No September 24, 2023 3:00pm Insurance Providers Guarantor Andrea Michelle Address [address] [facility] [address]Muterwj Info.Home Phone: Payer Group Member ID Coverage Type Subscriber Relationship to Subscriber Effective Date Expiration Date Medicare [employer] PGBA [id number] Covella Id: [id number] [address] [facility] [address] Home Phone: self[place]ual [employer] [place] [id number] Michelle Id: [id number] [address] [facility] [address] Home Phone: self Encounters Encounter Location(s) Arrival/Admit Date Discharge/Departure Date Discharge/Departure Disposition Provider(s) Departed Physician/ Provider [facility] -[facility] July 06, 2025 3:39pm July 06, 2025 4:25pm Discharged to home care or self care (routine discharge) Dony Rao , DO
--- NOTE | 2025-07-06 16:35 | ECG_ITS ---
[facility] Test Date: 2025-07-06 Pat Name: ELIDA JERONIMO Department: Room: - Gender: Male Muck Boss: : 1940 Requested By: WOODY MOORE Order Number: [id number] Atul MD: LUIS MOSQUEDA M.D. Measurements Intervals [place] Rate: 70 P: -72 PA: 206 QRS: 104 QRSD: 128 T: 31 QT: 404 QTc: 425 Interpretive Statements ECTOPIC ATRIAL RHYTHM 1470 with occasional supraventricular premature complexes 2450 Right bundle branch block NONSPECIFIC ST DEPRESSION 7100 Abnormal right axis deviation 9150 abnormal ECG Compared to ECG 02/28/2023 14:12:25 Right bundle-branch block now present Right-axis deviation now present Sinus rhythm no longer present Incomplete right bundle-branch block no longer present Electronically Signed On 07-07-2025 7:22:17 EST by LUIS MOSQUEDA M.D.
[2025-07-06] MEDS: 0.9 % SODIUM CHLORIDE 1,000 ML 500 ML IV (16:50)
--- OUTSIDE RECORDS SUMMARY | 2025-07-06 16:58 | XMS_ITS | Clinical Summary ---
Author Organization [facility] Address [address] [facility] [place] [address] Care Team Providers Care Ui Ux Developer Name Role Phone Dony Rao DO Primary Care Provider [phone] Social History Tobacco UseTypesPacks/DayYears UsedDateSmoking Tobacco: Never AssessedSex and Gender InformationValueDate RecordedSex Assigned at BirthNot on fileLegal Sex Male11/13/2022 6:37 PM EDTGender IdentityNot on fileSexual OrientationNot on file Plan of Treatment Not on file Insurance * Guarantor: Andrea Michelle TypeRelation to PatientDate of BirthPhone Billing AddressPersonal/JyrwbqScmc1940 [address] [place] [address] [place] [address] Care Teams Team MemberRelationshipSpecialtyStart DateEnd Date Dony Rao DO PCP - GeneralInternal Medicine03/18/23
--- OUTSIDE RECORDS SUMMARY | 2025-07-06 16:58 | XMS_ITS | Clinical Summary ---
Author Organization [facility] Address [address] [facility] [place] [address] Care Team Providers Care Chiropractic Doctor Name Role Phone Unavailable Primary Care Provider Unavailabl e Source Comments The following information is NOT included in Care Everywhere downloads:Psychiatric notes, ECG results, Cardiac Rehab notes, Pulmonary Function notes, data from SmartForms (includes but not limited toPregnancy data,audiograms, eye exams, pre-surgical evaluation notes, well-child exam data).[facility] Allergies No known active allergies Medications MedicationSigDispense QuantityRefillsLast FilledStart DateEnd DateStatus metoprolol (TOPROL-XL) 25 mg XL tablet Take 1 Tablet by mouth daily.09/08/2022ctive lisinopril (ZESTRIL) 40 MG tablet Take 1 Tablet by mouth daily.09/08/2022ctive umeclidinium-vilanterol (ANORO-ELLIPTA) 62.5-25 mcg/inh AEPB inhalation powder Inhale 1 Puff by mouth daily. 60 Each 06/10/2024ctive melatonin 3 MG TABS tablet Take 1 Tablet by mouth at bedtime. 30 Tablet 06/10/2024ctive nicotine (NICODERM CQ) 21 mg/24HR patch Place 1 Patch on the skin daily. 30 Patch 06/11/2024ctive fluticasone (FLOVENT HFA) 110 MCG/ACT inhaler Inhale 1 Puff by mouth 2 times daily. 12 g 06/10/2024ctive pantoprazole (PROTONIX) 40 MG SOLR injection 10 mL by Intravenous Push route daily (30 minutes before breakfast). 30 Each 06/11/2024ctive albuterol (Proventil HFA) INHALATION HFA inhaler (VENTOLIN,PROAIR,PROVENTIL) 90mcg Inhale 4 Puffs by mouth every 4 hours as needed for Shortness of Breath or Wheezing. 18 g 06/10/2024ctive ipratropium-albuterol (DUO-NEB) 0.5-2.5 (3) MG/3ML nebulizer solution Use 3 mL via nebulizer every 4 hours as needed. 70 Each 06/10/2024ctive ondansetron (ZOFRAN) 4 MG/2ML injection 2 mL by Intravenous Push route every 6 hours as needed. 15 mL 06/10/2024ctive labetalol (TRANDATE) 5 mg/mL injection 2 mL by Intravenous Push route every 6 hours as needed (SBP >160). 4 mL 06/10/2024ctive enoxaparin (LOVENOX) 40 MG/0.4ML injection Inject 0.4 mL under the skin 2 times daily. 24 mL 06/10/2024ctive cloNIDine (CATAPRES) 0.1 MG tablet 1 Tablet by G Tube route every 8 hours. 60 Tablet ctive acetaminophen (TYLENOL) 500 MG tablet 2 Tablets by G Tube route every 6 (six) hours. 30 Tablet 06/10/2024ctive Pediatric Multivitamins-Iron (Cerovite Jr) chew tab Chew and swallow 1 Tablet by mouth daily. 30 Tablet 06/11/2024ctive Active Problems ProblemNoted DateDiagnosed DateAcute hyperactive delirium due to multiple sqrgenwbvj71/24/2024 Assessment & Plan (05/26/2024 1:08 PM EDT): -patient had previously received several doses of each of the following: zyprexa, haldol, benadryl,robaxin (none in the past 24 hours) -cause of hyperactive delirium likely 2/2 anticholinergic medications in setting of critical illness Plan: -continue depakote 250 mg IV tid scheduled for agitation, can transition to sprinkles when able to tolerate PO -would continue to avoid anticholinergic medications (antipsychotics, antihistamine agents) -if further concerns regarding agitation or delirium, would consult geriatrics -would encourage no physical restraints or chemical restraints if possible -delirium precautions: blinds open from 8 am to 8pm, frequent reorrientation, avoid anticholinergicmedications/restraints if possible, encourage reading glasses use, encourage family visitation Assessment & Plan (2024 5:38 PM EDT): -patient has receivied several doses of each of the following: zyprexa, haldol, benadryl, robaxin -cause of hyperactive delirium likely 2/2 anticholinergic medications in setting of critical illness Plan: -stop methocarbonol -stop haloperidol -stop benadryl -change zyprexa to 5mg q8hr prn for severe agitation only -start depakote 250 mg IV tid scheduled for agitation -would encourage no physical restraints or chemical restraints if possible -delirium precautions: blinds open from 8 am to 8pm, frequent reorrientation, avoid anticholinergicmedications/restraints if possible, encourage reading glasses use, encourage family visitation Palliative care by pmqharlyws23/24/2024 Assessment & Plan (05/26/2024 1:08 PM EDT): -in setting of acute hypoxic respiratory failure and pneumothorax -next of kin is Ilana Michelle (spouse) and then yumiko Vaughn (numbers in chart) -did not address code status Assessment & Plan (2024 5:38 PM EDT): -in setting of acute hypoxic respiratory failure and pneumothorax -next of kin is Ilana Michelle (spouse) and then yumiko Vaughn (numbers in chart) -did not address code status Traumatic lisuqufznjxr69/24/2024 Assessment & Plan (05/26/2024 1:08 PM EDT): -appears to be improving on imaging Assessment & Plan (2024 5:38 PM EDT): -appears to be improving on imaging Rib pain on right side2024 Assessment & Plan (05/26/2024 1:08 PM EDT): -per patient controlled by oxycodone 10 mg q4hr prn for severe pain -consider pain management consult for consideration of procedure options for non-cancer acute pain Assessment & Plan (2024 5:38 PM EDT): -per patient controlled by oxycodone 10 mg q4hr prn for severe pain -consider pain management consult for consideration of procedure options for non-cancer acute pain Drug-induced vgfsbekjkjmh65/24/2024 Assessment & Plan (05/26/2024 1:08 PM EDT): -likely in setting of anticholinergics and critical illness -last BM 05/23, patient passing gas this morning Plan: -continue senna daily Assessment & Plan (2024 5:38 PM EDT): -likely in setting of anticholinergics and critical illness -last BM 05/23 Plan: -change senna to daily, if no BM today increase to bid -consider bisacodyl suppository prn Closed fracture of multiple ribs with flail chest, initial ukkakrxag58/16/2024 Assessment & Plan (05/26/2024 1:08 PM EDT): -now s/p rib plating and rib block, likely cause of hypoxic respiratory failure Assessment & Plan (2024 5:38 PM EDT): -now s/p rib plating and rib block, likely cause of hypoxic respiratory failure Resolved Problems ProblemNoted DateDiagnosed DateResolved DateAcute hypoxic respiratory failure /05/2025 Assessment & Plan (05/26/2024 1:08 PM EDT): -in setting of pneumothrorax and rib fractures Assessment & Plan (2024 5:38 PM EDT): -in setting of pneumothrorax and rib fractures Social History Tobacco UseTypesPacks/DayYears UsedDateSmoking Tobacco: Never AssessedHunger Vital SignAnswerDate RecordedWithin the past 12 months, you worried that your food would run out before you got the money to buymore.Never true05/20/2024 Within the past 12 months, the food you bought just didn't last and you didn't have money to get more.Never true05/20/2024RAPARE - TransportationAnswerDate RecordedIn the past 12 months, has lack of transportation kept you from medical appointments or from getting medications?No05/20/2024In the past 12 months, has lack of transportation kept you from meetings, work, or from getting things needed for daily living?No05/20/2024Housing Stability Vital SignAnswerDate RecordedIn the last 12 months, was there a time when you were not able to pay the mortgage or rent on time?No05/20/2024In the past 12 months, how many times have you moved where you were living?t any time in the past 12 months, were you homeless or living in a chcf (including now)?No05/20/2024Sex and Gender InformationValueDate RecordedSex Assigned at BirthNot on fileLegal XfdJbiu1105/16/2024 11:42 PM EDTGender IdentityNot on fileSexual OrientationNot on file Last Filed Vital Signs Vital SignReadingTime TakenCommentsBlood Dxrmvdhe28/6810 3:00 PM EDT Nbqxw2640 3:00 PM EUSDdsahmhvhmb37 ??C (98.6 ??F)06/10/2024 11:30 AM EDT Respiratory Nniz004906/10/2024 3:00 PM EDTOxygen Xyqielwgdl49%06/10/2024 3:00 PM EDTInhaled Oxygen Concentration--Ahthvl23.6 kg (160 lb)05/17/2024 2:00 AM EDT Cqossz564.7 cm (5' 8 )05/17/2024 2:00 AM EDTBody Mass Index24.3309 2:00 AM EDT Plan of Treatment Health MaintenanceDue DateLast DoneCommentsTdap Llfugxi9305/25/1959Hepatitis A (HAV) Vaccine (optional start 19+ years)1960Pneumococcal Vaccine(s) (50+ yrs) (1 of 1 - PCV)1991Shingles (RZV) Vaccine (1 of 2)1991Hepatitis B (HBV) Vaccine (optional start 60+ years)2001Annual Wellness Visit (G0438)05/02/2007RSV vaccine (adult) (1 - 1-dose 75+ series)2016COVID-19 Vaccine ( - 2024- season)2025Influenza Vaccine (#1)2025 Medical Devices ImplantedTypeAreaManufacturerDevice IdentifierShelf Expiration DateModel / Serial / LotCap Orth Lck Hex Drv Ns Lf Ea1 [id number] - [id number] Implanted:Qty: 8 on 05/20/2024 by Girish Baca MD at INPATIENT DEPARTMENTS ConnectorRight: [id number] / / Plt 23mm Brdg Lck Post Ea1 [id number] - [id number] Implanted:Qty: 1 on 05/20/2024 by Girish Baca MD at INPATIENT DEPARTMENTS PlateRight: [id number] / / Inst Orth 23mm Lng Brdg Post Ea1 [id number] - [id number] Implanted:Qty: 3 on 05/20/2024 by Girish Baca MD at INPATIENT DEPARTMENTS PlateRight: [id number] / / Wshr Orth Ns Lf Ea1 [id number] - [id number] Implanted:Qty: 8 on 05/20/2024 by Girish Baca MD at INPATIENT DEPARTMENTS WasherRight: [id number] / / ExplantedTypeAreaManufacturerDevice IdentifierShelf Expiration DateModel / Serial / LotCbl Orth Gd Ns Lf Ea1 [id number] - [id number] Explanted:Qty: 10 on 05/20/2024 by Girish Baca MD at INPATIENT DEPARTMENTSCableRight: [id number] / / [place] [address] Advance Directives * Full Code (Latest Code Status on File) Date ActivatedDate InactivatedComments05/17/2024 3:52 AM06/10/2024 5:53 PM QuestionAnswerCommentsDocumentation of decision process for this code status:* Discussed with patient or surrogate.?? This is the code status chosen by the patient/surrogate. * Full Code Date ActivatedDate InactivatedComments05/17/2024 2:58 AM05/17/2024 3:52 AMQuestion AnswerCommentsDocumentation of decision process for this code status:* Patient and surrogate unable or unavailable to discuss.?? There is no previous documentation of code status.?? Defaulting to Full Code
--- OUTSIDE RECORDS SUMMARY | 2025-07-06 16:58 | XMS_ITS | Clinical Summary ---
Author Organization [facility] Address [address] [place] [address] Care Team Providers Care Food Beverage Manager Name Role Phone Unavailable Primary Care Provider Unavailabl e Social History Tobacco UseTypesPacks/DayYears UsedDateSmoking Tobacco: Never AssessedUT Safety & EnvironmentAnswerDate RecordedFear of Current or Ex-PartnerNot on file 10/23/2023Emotionally AbusedNot on file10/23/2023hysically AbusedNot on file 10/23/2023Sexually AbusedNot on file10/23/2023hysically or Sexually AbusedNot on file10/23/2023Sex and Gender InformationValueDate RecordedSex Assigned at BirthNot on fileLegal ZnsImpe5702/27/2022 10:36 PM EDTGender IdentityNot on file Sexual OrientationNot on file Last Filed Vital Signs Vital SignReadingTime TakenCommentsBlood Hkzswhpn551/55920 2:05 PM EST Pulse--Temperature--Respiratory Rate--Oxygen Bamgermhix94%07/05/2019 2:04 PM EST Inhaled Oxygen Concentration--Yizdqq03.9 kg (152 lb)07/05/2019 2:04 PM ESTHeight 172.7 cm (5' 8 )07/05/2019 2:01 PM ESTBody Mass Index23. 2:01 PM EST Plan of Treatment Health MaintenanceDue DateLast DoneCommentsMedicare Annual Wellness (AWV) 1Depression Vdvoufoxx68/24/1952Pneumococcal Vaccine: 50+ Years (1 of 2 - PCV)1960Adult Oruyvxk4205/25/1963Zoster Vaccines (1 of 2)1991Fall Risk Wayltjgwh51/24/2006COVID-19 Vaccine (1 - 2024- season)2025Influenza Vaccine (#1)2025HIB VaccinesAged OutNo longer eligible based on patient's age to complete this topicHPV VaccinesAged OutNo longer eligible based on patient's age to complete this topicIPV VaccinesAged OutNo longer eligible based on patient's age to complete this topicMeningococcal B VaccineAged OutNo longer eligible based on patient's age to complete this topicMeningococcal VaccineAged OutNo longer eligible based on patient's age to complete this topicRotavirus VaccinesAged OutNo longer eligible based on patient's age [place] [address] [place] [address]
--- OUTSIDE RECORDS SUMMARY | 2025-07-06 16:58 | XMS_ITS | Clinical Summary ---
Author Organization [facility] Address [id number] [address] [place] [address] Care Team Providers Care Prefitter Name Role Phone Dony Rao Primary Care Provider [phone] Allergies No known active allergies Medications MedicationSigDispense QuantityRefillsLast FilledStart DateEnd DateStatus lisinopriL (PRINIVIL,ZESTRIL) 40 mg tablet Indications:hypertensionTake 40 mg by mouth daily Indications: high blood pressure.Active metoprolol succinate XL (TOPROL-XL) 25 mg 24 hr tablet Take 25 mg by mouth daily.11/18/2019Active cholecalciferol, vitamin D3, 5,000 units tablet Take 1 tablet by mouth daily.Active coenzyme Q10 200 mg capsule Take 1 capsule by mouth daily.Active niacin (NIASPAN EXTENDED-RELEASE) 500 mg CR tablet Take 1 tablet by mouth daily.Active om 3-gez-jod-E27-ZX-D4-ewyjwpu 500 mg-500 mcg -1 mg-12.5 mg capsule daily.Active Active Problems ProblemNoted DateDiagnosed DateAcquired skgveetymi10/01/2020Acquired hemophilia A002/23/2020Factor VIII inhibitor dqlcegbm91/24/2020GI bleed02/09/2020 Immunizations No known immunizations Family History Medical HistoryRelationNameCommentsParkinsonismBrotherALSMotherRelationName StatusCommentsBrotherMother Social History Tobacco UseTypesPacks/DayYears UsedDateSmoking Tobacco: Every DayCigarettes Smokeless Tobacco: Never Comments:Down to 2-3 cigarre ttes/day Alcohol UseStandard Drinks/OwfwBgldlsfxQxp45 (1 standard drink = 0.6 oz pure alcohol)PHQ-2AnswerDate RecordedTotal Cmihi703ChildcareAnswerDate YdasnjtjWltlewqnsBpalspt54/19/2019EmploymentAnswerDate RecordedEmploymentUnknown 04/19/2019Purpose - LifeAnswerDate RecordedPurpose and direction in lifeUnknown 09/26/2020ex and Gender InformationValueDate RecordedSex Assigned at BirthNot on fileLegal IobQaih7804/19/2019 9:17 AM EDTGender IdentityNot on fileSexual OrientationNot on fileOccupationIndustryJob Start DateJob End DateRetired railroadNot on fileNot on fileNot on file Last Filed Vital Signs Vital SignReadingTime TakenCommentsBlood Dzsybnex326/9704 2:13 PM EDT Wqbmh705612/04/2020 2:13 PM OMOGdrqtzughxe23.4 ??C (97.6 ??F)12/04/2020 2:13 PM EDTRespiratory Vjiu1639 2:13 PM EDTOxygen Egrjlmfdnw42%02/24/2020 11:07 AM EDTInhaled Oxygen Concentration--Lnxddz63.8 kg (165 lb)12/04/2020 2:13 PM EDT Cqlhtw202.7 cm (5' 8 )03/15/2020 3:12 PM EDTBody Mass Index25.0903/15/2020 3:12 PM EDT Plan of Treatment Health MaintenanceDue DateLast DoneCommentsDepression Kqjwmhmwk90/24/1953Tobacco Ejydqqrgh21/24/1953DTaP,Tdap and Td Vaccines (1 - Tdap)1960Zoster (Shingles) Vaccine (1 of 2)1991Fall Risk Piiplbzmh56/24/2006RSV ( or age 60+ yrs) (1 - 1-dose 75+ series)2016Influenza Edgimpi6305/02/2025 Goals GoalPatient Goal TypeAssociated ProblemsRecent ProgressPatient-Stated?Author Long-Term Goals Sandrita Castro LSW Note: Evaluation of progress towards goal: return home with family support Medical Devices ImplantedTypeAreaManufacturerDevice IdentifierShelf Expiration DateModel / Serial / LotFilter Ivc Celect Plat Fem Rpl [id number] + [id number] - [id number] - [id number] Implanted:Qty: 1 on 02/12/2020 by Vladimir Michaels MD at [facility] FilterCOOK [id number] / [id number] / [id number] Insurance Advance Directives * Full Code (Latest Code Status on File) Date ActivatedDate InactivatedComments02/09/2020 5:22 AM02/24/2020 6:29 PM Care Teams Team MemberRelationshipSpecialtyStart DateEnd Date Dony Rao DO [address] [facility] [place] [address] PCP - GeneralInternal Medicine02/09/20
--- OUTSIDE RECORDS SUMMARY | 2025-07-06 16:58 | XMS_ITS | Patient Health Record ---
Author Organization [facility] Address [address] [facility] [address] [place] [address] Care Team Providers Care Automotive Product Specialist Name Role Phone ALEXANDRU LANDRUM Unavailable [phone] RABIA AVILA Unavailable [phone] KATIE FREDERICK Unavailable [phone] Reason For Referral No Information Problems Problem Type SNOMED Code ICD Code Onset Dates Problem Status W/U Status Risk Notes Problem Chronic obstructive pulmonary disease (65430588) Chronic obstructive pulmonary disease, unspecified (J44.9) ActiveconfirmedProblemTracheostomy present (870861892)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)Activeconfirmed Encounters Encounter Location Date Provider Diagnosis [facility] [address] 07/06/2024 KATIE FREDERICK Acute respiratory failure with hypoxia J96.01 ; Tracheostomy status Z93.0 ; Multiple fractures of ribs, right side, sequela S22.41XS ; Other specified pleural conditions J94.8 and Chronic obstructive pulmonary disease, unspecified J44.[address] [address] 07/07/2024 ALEXANDRU LUCITA Acute respiratory failure with hypoxia J96.01 ; Tracheostomy status Z93.0 ; Multiple fractures of ribs, right side, sequela S22.41XS ; Other specified pleural conditions J94.8 and Chronic obstructive pulmonary disease, unspecified J44.[address] [address] 07/08/2024 ALEXANDRU LUCITA Acute respiratory failure with hypoxia J96.01 ; Tracheostomy status Z93.0 ; Multiple fractures of ribs, right side, sequela S22.41XS ; Other specified pleural conditions J94.8 and Chronic obstructive pulmonary disease, unspecified J44.[address] [address] 07/09/2024 KATIE LOVEFF Acute respiratory failure with hypoxia J96.01 ; Tracheostomy status Z93.0 ; Multiple fractures of ribs, right side, sequela S22.41XS ; Other specified pleural conditions J94.8 and Chronic obstructive pulmonary disease, unspecified J44.[address] [address] 07/10/2024 KATIE LOVEFF Acute respiratory failure with hypoxia J96.01 ; Tracheostomy status Z93.0 ; Multiple fractures of ribs, right side, sequela S22.41XS ; Other specified pleural conditions J94.8 and Chronic obstructive pulmonary disease, unspecified J44.[address] [address] 07/11/2024 ALEXANDRU LUCITA Acute respiratory failure with hypoxia J96.01 ; Tracheostomy status Z93.0 ; Multiple fractures of ribs, right side, sequela S22.41XS ; Other specified pleural conditions J94.8 and Chronic obstructive pulmonary disease, unspecified J44.[address] [address] 07/12/2024 ALEXANDRU LUCITA Acute respiratory failure with hypoxia J96.01 ; Tracheostomy status Z93.0 ; Multiple fractures of ribs, right side, sequela S22.41XS ; Other specified pleural conditions J94.8 and Chronic obstructive pulmonary disease, unspecified J44.[address] [address] 07/13/2024 ALEXANDRU LUCITA Acute respiratory failure with hypoxia J96.01 ; Multiple fractures of ribs, right side, sequela S22.41XS ; Other specified pleural conditions J94.8 and Chronic obstructive pulmonary disease, unspecified J44.[address] [address] 07/14/2024 ALEXANDRU LUCITA Acute respiratory failure with hypoxia J96.01 ; Multiple fractures of ribs, right side, sequela S22.41XS ; Other specified pleural conditions J94.8 and Chronic obstructive pulmonary disease, unspecified J44.[address] [address] [facility] respiratory failure with hypoxia J96.01 ; Multiple fractures of ribs, right side, sequela S22.41XS ; Other specified pleural conditions J94.8 and Chronic obstructive pulmonary disease, unspecified J44.[address] [address] 07/16/2024 KATIE FREDERICK Acute respiratory failure with hypoxia J96.01 ; Multiple fractures of ribs, right side, sequela S22.41XS ; Other specified pleural conditions J94.8 and Chronic obstructive pulmonary disease, unspecified J44.[address] [address] 07/17/2024 RABIA AVILA Acute respiratory failure with hypoxia J96.01 ; Multiple fractures of ribs, right side, sequela S22.41XS ; Other specified pleural conditions J94.8 and Chronic obstructive pulmonary disease, unspecified J44.[address] [address] 07/18/2024 RABIA AVILA Acute respiratory failure with hypoxia J96.01 ; Multiple fractures of ribs, right side, sequela S22.41XS ; Other specified pleural conditions J94.8 and Chronic obstructive pulmonary disease, unspecified J44.[address] [address] 07/19/2024 KATIEMADELINE FREDERICK Acute respiratory failure with hypoxia J96.01 ; Multiple fractures of ribs, right side, sequela S22.41XS ; Other specified pleural conditions J94.8 and Chronic obstructive pulmonary disease, unspecified J44.9 Assessments Encounter Date Diagnosis (ICD Code) Assessment Notes Treatment Notes Treatment Clinical Notes Section Notes 07/06/2024 Acute respiratory failure with h ypoxia (ICD-10 - J96.01) 07/07/2024cute respiratory failure with hypoxia (ICD-10 - J96.01)07/08/2024 Acute respiratory failure with hypoxia (ICD-10 - J96.01)4Acute respiratory failure with hypoxia (ICD-10 - J96.01)07/10/2024cute respiratory failure with hypoxia (ICD-10 - J96.01)07/11/2024cute respiratory failure with hypoxia (ICD-10 - J96.01)07/12/2024cute respiratory failure with hypoxia (ICD- 10 - J96.01)07/13/2024cute respiratory failure with hypoxia (ICD-10 - J96.01) 07/13/2024Multiple fractures of ribs, right side, sequela (ICD-10 - S22.41XS) 07/14/2024cute respiratory failure with hypoxia (ICD-10 - J96.01)07/15/2024 Acute respiratory failure with hypoxia (ICD-10 - J96.01)07/16/2024cute respiratory failure with hypoxia (ICD-10 - J96.01)07/17/2024cute respiratory failure with hypoxia (ICD-10 - J96.01)07/18/2024cute respiratory failure with hypoxia (ICD-10 - J96.01)07/19/2024cute respiratory failure with hypoxia (ICD- 10 - J96.01)07/19/2024Multiple fractures of ribs, right side, sequela (ICD-10 - S22.41XS)07/18/2024Multiple fractures of ribs, right side, sequela (ICD-10 - S22.41XS)07/17/2024Multiple fractures of ribs, right side, sequela (ICD-10 - S22.41XS)07/16/2024Multiple fractures of ribs, right side, sequela (ICD-10 - S22.41XS)07/15/2024Multiple fractures of ribs, right side, sequela (ICD-10 - S22.41XS)07/14/2024Multiple fractures of ribs, right side, sequela (ICD-10 - S22.41XS)07/13/2024Other specified pleural conditions (ICD-10 - J94.8)07/12/2024 Tracheostomy status (ICD-10 - Z93.0)07/10/2024Tracheostomy status (ICD-10 - Z93.0)07/11/2024Tracheostomy status (ICD-10 - Z93.0)07/09/2024Tracheostomy status (ICD-10 - Z93.0)07/08/2024Tracheostomy status (ICD-10 - Z93.0)07/07/2024 Tracheostomy status (ICD-10 - Z93.0)07/06/2024Tracheostomy status (ICD-10 - Z93.0)07/07/2024Multiple fractures of ribs, right side, sequela (ICD-10 - S22.41XS)07/06/2024Multiple fractures of ribs, right side, sequela (ICD-10 - S22.41XS)07/08/2024Multiple fractures of ribs, right side, sequela (ICD-10 - S22.41XS)07/09/2024Multiple fractures of ribs, right side, sequela (ICD-10 - S22.41XS)07/10/2024Multiple fractures of ribs, right side, sequela (ICD-10 - S22.41XS)07/11/2024Multiple fractures of ribs, right side, sequela (ICD-10 - S22.41XS)4Chronic obstructive pulmonary disease, unspecified (ICD-10 - J44.9)07/12/2024Multiple fractures of ribs, right side, sequela (ICD-10 - S22.41XS)07/14/2024Other specified pleural conditions (ICD-10 - J94.8)07/15/2024 Other specified pleural conditions (ICD-10 - J94.8)07/16/2024Other specified pleural conditions (ICD-10 - J94.8)07/17/2024Other specified pleural conditions (ICD-10 - J94.8)07/18/2024Other specified pleural conditions (ICD-10 - J94.8) 07/19/2024Other specified pleural conditions (ICD-10 - J94.8)4Chronic obstructive pulmonary disease, unspecified (ICD-10 - J44.9)4Chronic obstructive pulmonary disease, unspecified (ICD-10 - J44.9)4Chronic obstructive pulmonary disease, unspecified (ICD-10 - J44.9)4Chronic obstructive pulmonary disease, unspecified (ICD-10 - J44.9)4Chronic obstructive pulmonary disease, unspecified (ICD-10 - J44.9)4Chronic obstructive pulmonary disease, unspecified (ICD-10 - J44.9)07/11/2024Other specified pleural conditions (ICD-10 - J94.8)07/12/2024Other specified pleural conditions (ICD-10 - J94.8)07/09/2024Other specified pleural conditions (ICD-10 - J94.8)07/10/2024Other specified pleural conditions (ICD-10 - J94.8)07/07/2024 Other specified pleural conditions (ICD-10 - J94.8)07/08/2024Other specified pleural conditions (ICD-10 - J94.8)07/06/2024Other specified pleural conditions (ICD-10 - J94.8)4Chronic obstructive pulmonary disease, unspecified (ICD-10 - J44.9)4Chronic obstructive pulmonary disease, unspecified (ICD-10 - J44.9)4Chronic obstructive pulmonary disease, unspecified (ICD-10 - J44.9)4Chronic obstructive pulmonary disease, unspecified (ICD-10 - J44.9)4Chronic obstructive pulmonary disease, unspecified (ICD-10 - J44.9)4Chronic obstructive pulmonary disease, unspecified (ICD-10 - J44.9)4Chronic obstructive pulmonary disease, unspecified (ICD-10 - J44.9)07/06/2024OtherSeabhi in collaboration and discussed plan of care with Dr. Alexandru Landrum07/07/2024OtherSeabhi in collaboration and discussed plan of care with Dr. Alexandru Landrum07/08/2024OtherLiz in collaboration and discussed plan of care with Dr. Alexandru Landrum07/09/2024OtherSeabhi in collaboration and discussed plan of care with Dr. Alexandru Landrum07/10/2024OtherSeabhi in collaboration and discussed plan of care with Dr. Alexandru Landrum07/15/2024OtherSeabhi in collaboration and discussed plan of care with Dr. Alexandru Landrum07/16/2024OtherSeabhi in collaboration and discussed plan of care with Dr. Alexandru Landrum07/17/2024OtherSeabhi in collaboration and discussed plan of care with Dr. Alexandru Landrum07/18/2024Other Seen in collaboration and discussed plan of care with Dr. Alexandru Landrum07/19/2024 OtherSeen in collaboration and discussed plan of care with Dr. Alexandru Landrum Plan Of Treatment No Information Insurance Providers Payer Name Payer Address Payer Phone Subscriber Number Group Number Insured Name Patient Relationship to Insured Coverage Start Date Coverage End Date [employer] [address], [address] [id number] Guerrero Michelle - patient is the insuredMutual [address] [place] [id number], LewisSelf - patient is the insured
--- OUTSIDE RECORDS SUMMARY | 2025-07-06 16:58 | XMS_ITS | Clinical Summary ---
Author Organization [facility] Address [address] [place] [address] Care Team Providers Care Bag Machine Tender Name Role Phone Unavailable Primary Care Provider Unavailabl e Social History Tobacco UseTypesPacks/DayYears UsedDateSmoking Tobacco: Never AssessedSex and Gender InformationValueDate RecordedSex Assigned at BirthNot on fileLegal Sex Male05/26/2024 3:07 PM EDTGender IdentityNot on fileSexual OrientationNot on file Plan of Treatment Health MaintenanceDue DateLast DoneCommentsAnnual Visit Topic1942 DTaP/Tdap/Td Vaccines (1 - Tdap)1960Pneumococcal Vaccine: 65+ Years (1 of 2 - PCV)1991HIB VaccinesAged OutNo longer eligible based on patient's age to complete this topicHPV VaccinesAged OutNo longer eligible based on patient's age to complete this topicHepatitis A VaccinesAged OutNo longer eligible based on patient's age to complete this topicHepatitis B VaccinesAged OutNo longer eligible based on patient's age to complete this topicIPV VaccinesAged OutNo longer eligible based on patient's age to complete this topicMeningococcal VaccineAged OutNo longer eligible based on patient's age to complete this topic
--- OUTSIDE RECORDS SUMMARY | 2025-07-06 17:01 | XMS_ITS | CCD ---
Author Organization [facility]iniSyn[facility] Care Team Providers Care Debarker Operator Name Role Phone Dnoy Moore Unavailable TERESA, DR MCKAY Admitting Unavailable [...] UNKNOWN Attending Unavailable LAURA, GIRISH Admitting Unavailable HAYELE, LUDMILA Referring Unavailable PROVIDER, UNKNOWN Attending Unavailable [...] UNKNOWN Attending Unavailable LAURA, GIRISH Admitting Unavailable HYALEE, LUDMILA Referring Unavailable PROVIDER, UNKNOWN Attending Unavailable LAURA, GIRISH Admitting Unavailable PROVIDER, UNKNOWN Attending Unavailable LAURA, GIRISH Admitting Unavailable HAYLEE, LUDMILA Referring Unavailable HAYLEE, ULDMILA Referring Unavailable PROVIDER, UNKNOWN Attending Unavailable LAURA, [...] SANCHEZ Attending Unavailable LAURA, GIRISH Admitting Unavailable [phone], IP TEAM TRAUMA Consulting Unavail able HAYLEE, LUDMILA Referring Unavailable REQUEST, IP PHYSICAL THERAPY SERVICE Consulting Unavailable REQUEST, IP OCCUPATIONAL THERAPY SERVICE Consult ing Unavailable CONSULT, IP ORTHOPAEDICS GENERAL Consulting Unavailable CONSULT, IP ANESTHESIA Consulting Unavailab le CONSULT, IP PALLIATIVE CARE Consulting Unav adonisable DONY MOORE Primary Care Physician Leatha Spring Admitting Unavailable Leatha Spring Attending Unavailable Fiordaliza Jara Referring Unavailable Medications Current Medications MedicationDrug Class(es)DatesSig (Normalized)Sig (Original)acetaminophen 500 mg oral tablet (5 sources)Start: 03-95-7049skhs 2 tablets intragastric route every six hours acetaminophen (TYLENOL) 500 MG tablet 2 Tablets by G Tube route every 6 (six) hours. 30 Tablet 06/10/2024 ActiveStart: 08-64-3114mhce 1 tablet by mouth every six hoursAcetaminophen (Tylenol Extra Strength) 500 mg tablet Active 500 MG PO Every 6 hours December 11, 2023 12:00amtake 1 tablet by mouth every six hours Tylenol Extra Strength 500 MG 1 tablet as needed Orally every 6 hrs Active [id number] actuat albuterol 0.09 mg/actuat metered dose inhaler (14 sources)beta2-Adrenergic AgonistStart: 06-10-2024 End: 51-33-5671hlvzbpjdl (PROVENTIL) (2.5 MG/3ML) 0.083% nebulizer solution Use 3 mL via nebulizer every 4 hours as needed for Shortness of Breath (or not indicated). 90 Each 06/10/2024 07/10/2024 ActiveStart: 98-66-1085qaqi 4 puff(s) by mouth every four hours as needed for wheezingalbuterol (Proventil HFA) INHALATION HFA inhaler (VENTOLIN,PROAIR,PROVENTIL) 90mcg Inhale 4 Puffs by mouth every 4 hours as needed for Shortness of Breath or Wheezing. 18 g 06/10/2024 ActiveStart: 36-07-9454oqbo 1 puff(s) by inhalation every four hoursAlbuterol Sulfate Active 1 PUFF INHALATION Every 4 hours December 11, 2023 12:00amtake 1 puff(s) by inhalation every four hours as neededAlbuterol Sulfate HFA 108 (90 Base) MCG/ACT 1 puff as needed Inhalation every 4 hrs Activetake 1 puff(s) by inhalation every four hours as neededAlbuterol Sulfate HFA 108 (90 Base) MCG/ACT 1 puff as needed Inhalation every 4 hrs Activetake 1 puff(s) by inhalation every four hours as neededAlbuterol Sulfate HFA 108 (90 Base) MCG/ACT 1 puff as needed Inhalation every 4 hrs Activealbuterol 0.833 mg/ml / ipratropium bromide 0.167 mg/ml inhalation solution (2 sources)Anticholinergic, beta2-Adrenergic AgonistStart: 06-10-2024 ipratropium-albuterol (DUO-NEB) 0.5-2.5 (3) MG/3ML nebulizer solution Use 3 mL via nebulizer every 4 hours as needed. 70 Each 06/10/2024 Activeascorbic acid 500 mg chewable tablet (3 sources)Vitamin CStart: 28-76-8663bugr 500 mg by mouth once dailyAscorbic Acid (Vitamin C) Active 500 MG PO Daily December 11, 2023 12:00amtake 1 tablet by mouth every twenty-four hoursVitamin C 500 MG 1 tablet Orally Once a day Active biotin 10 mg oral capsule (14 sources)Start: 73-16-0714Uqzwww Active MCG PO December 11, 2023 12:00amtake 1 tablet by mouth every twenty-four hoursBiotin 35482 MCG 1 tablet Orally Once a day Not-Taking/PRNtake 1 tablet by mouth every twenty-four hoursBiotin 69498 MCG 1 tablet Orally Once a day Not-Takingtake 1 tablet by mouth once dailyBiotin 19919 MCG 1 tablet Orally Once a day Not-Takingtake 1 tablet by mouth once daily Biotin 42128 MCG 1 tablet Orally Once a day ActiveBiotin Plus Keratin 36948-857 MCG-MG (9 sources)Biotin Plus Keratin 04183-932 MCG-MG as directed Orally Active cefdinir 300 mg oral capsule (9 sources)Cephalosporin AntibacterialCefdinir 300 MG as directed Orally Active cholecalciferol 0.025 mg oral capsule (3 sources)Vitamin DStart: 10-70-4301aawo 25 ug by mouth once daily Cholecalciferol (Vitamin D3) Active 25 MCG PO Daily December 11, 2023 12:00amtake 1 tablet by mouth every twenty-four hoursVitamin D 25 MCG (1000 UT) 1 capsule Orally Once a day Not-Taking/PRNcloNIDine hydrochloride 0.1 mg oral tablet (2 sources)Central alpha-2 Adrenergic AgonistStart: 93-91-8296nzoBQSldq (CATAPRES) 0.1 MG tablet 1 Tablet by G Tube route every 8 hours. 60 Tablet 3 06/10/2024 Active0.4 ml enoxaparin sodium 100 mg/ml prefilled syringe (2 sources)Low Molecular Weight HeparinStart: 06-10-2024 End: 96-23-4906axmtvi 0.4 mL by subcutaneous injection twice dailyenoxaparin (LOVENOX) 40 MG/0.4ML injection Inject 0.4 mL under the skin 2 times daily. 24 mL 06/10/2024 07/10/2024 Bbahub130 actuat fluticasone propionate 0.11 mg/actuat metered dose inhaler (2 sources)CorticosteroidStart: 90-79-4088ebeo 1 puff(s) by mouth twice daily fluticasone (FLOVENT HFA) 110 MCG/ACT inhaler Inhale 1 Puff by mouth 2 times daily. 12 g 06/10/20248433Hcwoxa34 actuat fluticasone furoate 0.1 mg/actuat / umeclidinium 0.0625 mg/actuat / vilanterol 0.025 mg/actuat dry powder inhaler (1 source)Anticholinergic, Corticosteroid, beta2-Adrenergic AgonistStart: 80-07-9857wbdz 1 puff(s) by inhalation once dailyTrelegy Ellipta 100-62.5-25 MCG/ACT 1 puff Inhalation Once a day for 30 days Sep, Activefolic acid 1 mg oral tablet (3 sources)take 1 tablet by mouth every twenty-four hoursFolic Acid 1 MG 1 tablet Orally Once a day Activehydrocortisone 10 mg/ml topical cream (2 sources)CorticosteroidStart: 06-10-2024 End: 34-72-5093jxxsqeogibqsfr 1 % cream Apply topically 2 times daily. Apply thin layer to affected area. 30 g 06/10/2024 07/10/2024 Activelabetalol hydrochloride 5 mg/ml injectable solution (2 sources)beta-Adrenergic BlockerStart: 95-63-0414zgfxud 2 mL intravenously every six hours as neededlabetalol (TRANDATE) 5 mg/mL injection 2 mL by Intravenous Push route every 6 hours as needed (SBP >160). 4 mL 06/10/2024 Activelisinopril 40 mg oral tablet (20 sources)Angiotensin Converting Enzyme InhibitorStart: 51-76-1486ypsf 1 tablet by mouth once dailylisinopril (ZESTRIL) 40 MG tablet Take 1 Tablet by mouth daily. 09/08/2022 Activemelatonin 3 mg oral tablet (2 sources)Start: 45-54-9212fxma 1 tablet by mouth at bedtimemelatonin 3 MG TABS tablet Take 1 Tablet by mouth at bedtime. 30 Tablet 06/10/2024 Zhjblg99 hr metoprolol succinate 25 mg extended release oral tablet (20 sources)beta-Adrenergic BlockerStart: 79-15-8285zqua 1 tablet by mouth once dailymetoprolol (TOPROL-XL) 25 mg XL tablet Take 1 Tablet by mouth daily. 09/08/2022 Activetake 1 capsule by mouth once dailyMetoprolol Succinate 25 MG 1 capsule Orally Once a day Activeniacinamide 500 mg oral tablet (10 sources)Start: 82-31-1117luqt 500 mg by mouth once dailyNiacinamide Active 500 MG PO Daily December 11, 2023 12:00amtake 1 tablet by mouth every twenty-four hoursNiacinamide 500 MG 1 tablet Orally Once a day Gbkjgt73 hr nicotine 0.875 mg/hr transdermal system (2 sources)Cholinergic Nicotinic AgonistStart: 17-61-3619xhmnc 1 dose transdermal route once dailynicotine (NICODERM CQ) 21 mg/24HR patch Place 1 Patch on the skin daily. 30 Patch 06/11/2024 Active2 ml ondansetron 2 mg/ml injection (2 sources)Serotonin-3 Receptor AntagonistStart: 90-06-1015rvhzqe 2 mL intravenously every six hours as neededondansetron (ZOFRAN) 4 MG/2ML injection 2 mL by Intravenous Push route every 6 hours as needed. 15 mL 06/10/2024 Active oxyCODONE hydrochloride 5 mg oral tablet (3 sources)Opioid AgonistStart: 06-10-2024 End: 87-91-3235xxzQLEJQA 5 MG immediate release tablet Indications: Closed nondisplaced fracture of pelvis, unspecified part of pelvis, initial encounter (HCC) 1 Tablet by G Tube route every 4 hours as needed for up to 5 days. 28 Tablet 06/10/2024 06/15/2024 ActiveStart: 06-10-2024 End: 17-30-1665lfhGEJSOY 5 MG immediate release tablet Indications: Closed nondisplaced fracture of pelvis, unspecified part of pelvis, initial encounter (HCC) 2 Tablets by G Tube route every 4 hours as needed for up to 3 days. 28 Tablet 06/10/2024 06/13/2024 Activepantoprazole 40 mg injection (2 sources)Proton Pump InhibitorStart: 59-70-5918wcgcnf 10 mL intravenously once daily 30 minutes before breakfastpantoprazole (PROTONIX) 40 MG SOLR injection 10 mL by Intravenous Push route daily (30 minutes before breakfast). 30 Each 06/11/2024 ActivePediatric Multivitamins-Iron (Cerovite Jr) chew tab (2 sources)Start: 06-11-2024 End: 91-16-9594rsaf 1 tablet by mouth once dailyPediatric Multivitamins-Iron (Cerovite Jr) chew tab Chew and swallow 1 Tablet by mouth daily. 30 Tablet 06/11/2024 07/11/2024 Activesennosides, prison 8.6 mg oral tablet (9 sources)take 2 tablets by mouth every twenty-four hoursSenna 8.6 MG 2 tablets at bedtime as needed Orally Once a day Activesulfamethoxazole 800 mg / trimethoprim 160 mg oral tablet (1 source)Dihydrofolate Reductase Inhibitor Antibacterial, Sulfonamide AntimicrobialStart: 17-73-1169yngg 1 tablet by mouth every twelve hoursBactrim DS 800-160 MG 1 tablet Orally Twice a day for 10 day(s) December, Active Tylenol Extra Strength 500 MG (7 sources)take 1 tablet by mouth every six hours as neededTylenol Extra Strength 500 MG 1 tablet as needed Orally every 6 hrs Upqcrj50 actuat umeclidinium 0.0625 mg/actuat / vilanterol 0.025 mg/actuat dry powder inhaler (2 sources)Anticholinergic, beta2-Adrenergic AgonistStart: 06-10-2024 End: 59-00-0104lyiq 1 puff(s) by mouth once dailyumeclidinium-vilanterol (ANORO- ELLIPTA) 62.5-25 mcg/inh AEPB inhalation powder Inhale 1 Puff by mouth daily. 60 Each 06/10/2024 07/10/2024 ActiveVitamin C 500 MG (7 sources)take 1 tablet by mouth once dailyVitamin C 500 MG 1 tablet Orally Once a day Active Completed/Discontinued Medications MedicationDrug Class(es)DatesSig (Normalized)Sig (Original)esomeprazole 20 mg delayed release oral capsule (14 sources)Proton Pump InhibitorStart: 12-11-2023 End: 49-83-1730sjdk 1 capsule by mouth once dailyEsomeprazole Magnesium (Nexium) 20 mg capsule,delayed release(DR/EC) Discontinued 20 MG PO Daily December 11, 2023 12:00am December 12, 2023 1:57pmtake 1 capsule by mouth every twenty-four hoursNexIUM 20 MG 1 capsule Orally Once a day Activeiohexol (OMNIPAQUE) 300 MG/ML injection (2 sources)Start: 06-06-2024 End: 62-90-8263ancr 1 dose by mouth once50 mL, Oral, Once at Radiology exam, 1 dose, Starting on 06/06/24 at 1508, Until 06/06/24 at 1508, Imaging Protocol OrdersStart: 06-01-2024 End: 31-48-8521uvsc 1 dose by mouth once50 mL, Oral, Once at Radiology exam, 1 dose, Starting on 06/01/24 at 1244, Until 06/01/24 at 1144, Imaging Protocol Ordersiohexol (OMNIPAQUE) 350 MG/ML injection (4 sources)Start: 06-06-2024 End: 21-79-5582vuym 1 dose intravenously wmsy640 mL, Intravenous Push, Once at Radiology exam, 1 dose, Starting on 06/06/24 at 1508, Until 06/06/24 at 1508, Imaging Protocol OrdersStart: 05-30-2024 End: 05-36-2660ntch 1 dose intravenously abvc633 mL, Intravenous Push, Once at Radiology exam, 1 dose, Starting on 05/30/24 at 1707, Until 05/30/24 at 1707, Imaging Protocol OrdersStart: 05-29-2024 End: 57-91-8959jtnr 1 dose intravenously mixz228 mL, Intravenous Push, Once at Radiology exam, 1 dose, Starting on 05/29/24 at 1145, Until 05/29/24 at 1145, Imaging Protocol OrdersStart: 05-17-2024 End: 35-84-2156hdqf 1 dose intravenously once75 mL, Intravenous Push, Once at Radiology exam, 1 dose, Starting on Fri05/17/24 at 1518, Until Fri05/17/24 at 1514, Imaging Protocol Rdoimu45 ml lidocaine hydrochloride 20 mg/ml injection (4 sources)Antiarrhythmic, Amide Local AnestheticStart: 05-17-2024 End: 70-77-5372Wywoovubvi, Once PRN Procedure, Starting on Fri05/17/24 at 1345, Until Fri05/17/24 at 1345, Intra-opniacin 500 mg oral tablet (13 sources)Nicotinic Acidtake 1 tablet by mouth every twenty-four hoursNiacin 500 MG 1 tablet with food Orally Once a day Not-Taking/PRNpredniSONE 10 mg oral tablet (10 sources)Start: 12-11-2023 End: 90-04-7680dbbz 10 mg by mouth once dailyPrednisone Discontinued 10 MG PO Daily December 11, 2023 12:00am December 12, 2023 1:58pmtake 1 tablet by mouth every twenty-four hourspredniSONE 10 MG 1 tablet Orally Once a day Active Psyllium Husk (10 sources)Start: 12-11-2023 End: 63-70-4313ikke 0.4 g by mouth once dailyPsyllium Husk Discontinued 0.4 GM PO Daily December 11, 2023 12:00am December 12, 2023 1:58pmPsyllium Husk Active Sennosides (1 source)Start: 12-11-2023 End: 25-15-8843fwio 17.2 mg by mouth once daily at bedtimeSennosides Discontinued 17.2 MG PO Daily at bedtime December 11, 2023 12:00am December 12, 2023 1:58pmVitamin D 25 MCG (1000 UT) (11 sources)take 1 capsule by mouth once dailyVitamin D 25 MCG (1000 UT) 1 capsule Orally Once a day Not-Takingtake 1 capsule by mouth once dailyVitamin D 25 MCG (1000 UT) 1 capsule Orally Once a day Active Problems Active Problems Problem ClassificationProblemDateDocumented DateEpisodic/ChronicAcute posthemorrhagic anemia (7 sources)Acute posthemorrhagic anemia; Translations: [Acute posthemorrhagic anemia]EpisodicAlcohol-related disorders (15 sources)Alcoholic fatty liver; Translations: [Alcoholic fatty liver]Chronic Chronic obstructive pulmonary disease and bronchiectasis (20 sources)Mucopurulent chronic bronchitis; Translations: [Mucopurulent chronic bronchitis]ChronicCoagulation and hemorrhagic disorders (20 sources)Acquired coagulation factor deficiency; 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]Onset: 02-15-2022 Resolved: 33-26-9231WoimgfpFjrejxfy atherosclerosis and other heart disease (20 sources)Coronary arteriosclerosis; Translations: [Atherosclerotic heart disease of tanacross coronary artery without angina pectoris]Onset: 10-22-2022 ChronicCrushing injury or internal injury (20 sources)Traumatic pneumothorax; Translations: [Traumatic pneumothorax, initial encounter]Onset: 444571-11-2222MtopuqsmGbjfklir, dementia, and amnestic and other cognitive disorders (20 sources)Delirium due to multiple etiological factors; Translations: [Delirium due to known physiological condition]Onset: ChronicDisorders of lipid metabolism (20 sources)Hypercholesterolemia; Translations: [Pure hypercholesterolemia, unspecified]Onset: 57-40-5166YobzegkJmgvfmdnhd disorders (20 sources)Gastro-esophageal reflux disease with esophagitis; Translations: [Gastroesophageal reflux disease with esophagitis without hemorrhage]Chronic Esophageal disorders (8 sources)Esophageal disorders; Translations: [Gastroesophageal reflux disease with esophagitis, unspecified whether hemorrhage]Essential hypertension (20 sources)Essential hypertension; Translations: [Essential (primary) hypertension]Onset: 11-19-8461JawhoeaOdrpe and electrolyte disorders (17 sources)Hyponatremia; Translations: [Hypo-osmolality and hyponatremia]Onset: 05-16-2024 Resolved: 58-84-0475WmqmsifzNxlmqhfahphuy symptoms and ill-defined conditions (17 sources)Increased frequency of urination; Translations: [Frequency of micturition]EpisodicHyperplasia of prostate (17 sources)Nocturia due to benign prostatic hypertrophy; Translations: [Benign prostatic hyperplasia with lower urinary tract symptoms]ChronicImmunizations and screening for infectious disease (4 sources)Vaccination given; Translations: [Encounter for immunization]Episodic Other aftercare (20 sources)Under care of palliative care physician; Translations: [Encounter for palliative care]Onset: 479441-22-8401QshqiszxFtsoh connective tissue disease (7 sources)Olecranon bursitis; Translations: [Olecranon bursitis, right elbow] EpisodicOther endocrine disorders (13 sources)Mass of left adrenal gland; Translations: [Other specified disorders of adrenal gland]ChronicOther endocrine disorders (4 sources)Disorder of adrenal gland; Translations: [Other specified disorders of adrenal gland]ChronicOther fractures (20 sources)Closed flail chest; Translations: [Flail chest, initial encounter for closed fracture]Onset: 944191-52-9561AbqhwfbiAhubm fractures (1 source)Closed fracture of multiple ribs; Translations: [Multiple fractures of ribs, unspecified side, initial encounter for closed fracture]Onset: 05-16-2024 EpisodicOther gastrointestinal disorders (20 sources)Drug-induced constipation; Translations: [Drug induced constipation] Onset: 624902-92-6575OvppjpnwHweam injuries and conditions due to external causes (4 sources)History of fall; Translations: [History of falling]EpisodicOther injuries and conditions due to external causes (1 source)Injury of head; Translations: [Unspecified injury of head, initial encounter]Onset: 80-73-9851PwwoqmrmMeurj lower respiratory disease (11 sources)Nodule of lung; Translations: [Solitary pulmonary nodule]Episodic Other lower respiratory disease (6 sources)Solitary pulmonary noduleEpisodicOther lower respiratory disease (20 sources)Rib pain; Translations: [Pleurodynia]Onset: EpisodicOther screening for suspected conditions (not mental disorders or infectious disease) (2 sources)Other specified abnormal findings of blood chemistryEpisodicOther skin disorders (1 source)Xerosis cutisEpisodicPhlebitis; thrombophlebitis and thromboembolism (20 sources)Acute embolism and thrombosis of unspecified deep veins of left proximal lower extremity; Translations: [Acute embolism and thrombosis of left femoral vein]Onset: 65-68-1496DwedfkncMevyqgln; pneumothorax; pulmonary collapse (1 source)Pneumothorax; Translations: [Pneumothorax, unspecified]Onset: 24-30-3978JsjlkgyyTkmzfkioi heart disease (5 sources)Pulmonary embolism; Translations: [Single subsegmental pulmonary embolism without acute cor pulmonale]EpisodicResidual codes; unclassified (7 sources)Tobacco user; Translations: [Tobacco use]EpisodicRespiratory failure; insufficiency; arrest (adult) (12 sources)Acute on chronic hypercapnic respiratory failure; Translations: [Acute and chronic respiratory failure with hypercapnia]ChronicRespiratory failure; insufficiency; arrest (adult) (20 sources)Acute respiratory failure; Translations: [Acute respiratory failure with hypoxia]Onset: 894636-48-4405TxsoliiyIxgwuzfytij; intervertebral disc disorders; other back problems (20 sources)Lumbar spondylosis; Translations: [Spondylosis without myelopathy or radiculopathy, lumbar region]ChronicSpondylosis; intervertebral disc disorders; other back problems (4 sources)Low back pain; Translations: [Low back pain, unspecified]Episodic Substance-related disorders (20 sources)Nicotine dependence; Translations: [Nicotine dependence, cigarettes, uncomplicated]ChronicComment on above:Added secondary to documentation in Social History.Thyroid disorders (20 sources)Subclinical hypothyroidism; Translations: [Other specified hypothyroidism]Onset: 54-22-9774NtuazzhUlitxsozqhmt (4 sources)Elevation of levels of liver transaminase levels; Translations: [Elevation of levels of liver transaminase levels] Past or Other Problems Problem ClassificationProblemDateDocumented DateEpisodic/ChronicOther nutritional; endocrine; and metabolic disorders (7 sources)Overweight; Translations: [Overweight]Onset: 95-57-4353Krtrvtxr Sprains and strains (4 sources)Strain of muscle and/or tendon of lower leg; Translations: [Strain of other muscle(s) and tendon(s)of posterior muscle group at lower leg level, left leg, initial encounter] Resolved: 61-37-0924YtiwpljjSyuzoynzdljp (3 sources)Acute bilateral low back pain without sciatica; Translations: [Acute bilateral low back pain without sciatica]Unclassified (3 sources)Elevated transaminase level; Translations: [Elevated transaminase level]Unclassified (2 sources)Single subsegmental pulmonary embolism without acute cor pulmonale Results Test NameValueInterpretationReference RangeFacilityTrauma Office/Clinic Noteon 72-59-7800Wkyguy Office/Clinic NoteTrauma Office/Clinic Note History of Present Illness Patient was initially seen at [facility] on 05/16/24 and ultimately transferred to [facility] for his injuries as noted below FINAL [...] who presented as CAT 1 transfer from [facility] for mechanical fall down 8 steps. Unwitnessed fall, - head strike, - loc, - antiplatelet, -anticoagulation. He was found by his after remaining on the floor for 1-2 hours. He was initially taken to [facility] where he was scanned and found to have multiple right sided rib fractures with hydropneumothorax and right sided pelvic fractures. Right pigtail catheter placed prior to transfer to [facility] for ortho and trauma work up. Upon [...] removal. Patient had his trach removed a monthor so ago, has not used his G-tube in the last month. Was scheduled to be seen at [facility] but had issues getting there because of the commute so the patient has come to our clinic for removal of the G-tube. Patient denies any pain, redness, drainage from the area, has been tolerating regular diet without issue, no issues with swallowing, no vo (more content not included)...[facility] HospitalComment on above:Result Comment: Electronically Signed By: Fiordaliza Jara PA-C\.br\Date and Time Signed: 08/18/24 10:17 EST\.br\Electronically Co-Signed By: Leatha Spring MD\.br\Date and Time Co-Signed: 08/18/24 11:14 ESTCBCon 73-21-3588Umujvvbtsrr distribution width (RBC) [Ratio]15.5 %High11.5-15.0UnSelect [facility] - Southeast OhioComment on above:Performed By: #### [id number] #### [facility] ([facility]) [address] [place], [place] [id number] MEAN CORPUSCULAR HEMOGLOBIN CONCENTRATION (G/DL) BY JUAFBIVZL57.4 g/dLLow32.0-35.0UnSelect [facility] Special[facility] Hospital - Southeast OhioComment on above:Performed By: #### [id number] #### [facility] ([facility]) [address] [place] [id number] (Bld) [Volume fraction]30.3 %Low39.0-55.0UnSelect [facility] - Southeast OhioComment on above:Performed By: #### [id number] #### [facility] ([facility]) [address] [place] [id number] (Bld) [Mass/Vol]9.5 g/dLLow13.0-17.0UnSelect [facility] - Southeast OhioComment on above:Performed By: #### [id number] #### [facility] ([facility]) [address] [place] [id number] (RBC) [Entitic mass]30.4 raVdkvbg97.0-33.0UnSelect [facility] - [facility] OhioComment on above:Performed By: #### [id number] #### [facility] ([facility]) [address] [place] [id number] (RBC) [Entitic vol]97.1 hKGbcyjp66.0-98.0UnSelect [facility] - [facility] OhioComment on above:Performed By: #### [id number] #### [facility] ([facility]) [address] [place] [id number] (10*3/UL) IN BLOOD AUTOMATED [id number] 10*3/uLNormal 150-400UnSelect [facility] Hospital - Southeast OhioComment on above:Performed By: #### [id number] #### [facility] ([facility]) [address] [place] [id number] (Bld) [#/Vol]3.12 10*6/uLLow4.20-5.70UnSelect [facility] Special[facility] Hospital - Southeast OhioComment on above:Performed By: #### [id number] #### [facility] ([facility]) [address] [place] [id number] (Bld) [#/Vol]8.93 10*3/uLNormal4.00-10.60UnSelect [facility] - [facility] OhioComment on above:Performed By: #### [id number] #### [facility] ([facility]) [address] [place] [id number] METABOLIC PANELon 65-14-8401Hfsjxlh [Mass/Vol]3.4 g/dLLow3.5-5.7UnSelect [facility] Special[facility] Hospital - Southeast OhioComment on above:Performed By: #### [id number] #### [facility] ([facility]) [address] [place], [place] [address]WRN [Catalytic activity/Vol]87 U/ESqylrr82-230KfptdwsgqbSelect Medical Specialty Hospital - Southeast OhioComment on above:Performed By: #### [id number] #### [facility] ([facility]) [address] [place], [place] [address]CDS [Catalytic activity/Vol]13 U/LNormal7-52UnSelect Medical Specialty Hospital - Southeast OhioComment on above:Performed By: #### [id number] #### [facility] ([facility]) [address] [place], [place] [address]Weylb gap [Moles/Vol]6 mmol/LLow7-20UnSelect Medical Specialty Hospital - Southeast OhioComment on above:Performed By: #### [id number] #### [facility] ([facility]) [address] [place], [place] [address]JLI [Catalytic activity/Vol]14 U/UCpwnaw18-13RnxutsrraqSelect Medical Specialty Hospital - Southeast OhioComment on above:Performed By: #### [id number] #### [facility] ([facility]) [address] [place], [place] [address]Wdeylfmiv [Mass/Vol]0.2 mg/dLLow0.3-1.0UnSelect Medical Specialty Hospital - Southeast OhioComment on above:Performed By: #### [id number] #### [facility] ([facility]) [address] [place], [place] [address]Jmkuhgw [Mass/Vol]9.0 mg/dLNormal8.6-10.3UnSelect Medical Specialty Hospital - Southeast OhioComment on above:Performed By: #### [id number] #### [facility] ([facility]) [address] [id number] [Moles/Vol]101 mmol/OXwnwzk38-535IluzpnziwrSelect Medical Specialty Hospital - Southeast OhioComment on above:Performed By: #### [id number] #### [facility] ([facility]) [address] [id number] [Moles/Vol]32 mmol/YMptq68-51GvqkmunxjiSelect Medical Specialty Hospital - Southeast OhioComment on above:Performed By: #### [id number] #### [facility] ([facility]) [address] [id number] [Mass/Vol]0.66 mg/dLLow0.70-1.30UnSelect Medical Specialty Hospital - Southeast OhioComment on above:Performed By: #### [id number] #### [facility] ([facility]) [address] [place] [id number] FILTRATION RATE ML/MIN/1.73 SQ M.KZVWXHNVR37.1 mL/min/1.73m*2Normal>60.0UnSelect Medical Specialty Hospital - Southeast OhioComment on above: Result Comment: [facility]???s estimated glomerular filtration rate (eGFR) will no [...] potential consequences that do not disproportionately affect anyone group of individuals.Performed By: #### [id number] #### [facility] ([facility]) [address] [id number] [Mass/Vol]83 mg/xOFrqwua59-006TqrjavojtmSelect Medical Specialty Hospital - Southeast OhioComment on above:Performed By: #### [id number] #### [facility] ([facility]) [address] [id number] [Moles/Vol]4.2 mmol/LNormal3.5-5.1UnSelect Medical Specialty Hospital - Southeast OhioComment on above:Performed By: #### [id number] #### [facility] ([facility]) [address] [id number] [Mass/Vol]6.9 g/dLNormal6.0-8.3UnSelect Medical Specialty Hospital - Southeast OhioComment on above:Performed By: #### [id number] #### [facility] ([facility]) [address] [id number] [Moles/Vol]135 mmol/AIjv223-977QdracshfjgSelect Medical Specialty Hospital - Southeast OhioComment on above:Performed By: #### [id number] #### [facility] ([facility]) [address] [place] [id number] nitrogen [Mass/Vol]24 mg/dLNormal7-25UnSelect Medical Specialty Hospital - Southeast OhioComment on above:Performed By: #### [id number] #### [facility] ([facility]) [address] [id number] NITROGEN/CREATININE (MASS RATIO) IN SER/PLAS36.4Normal [facility] CenterComment on above:Performed By: #### [id number] #### [facility] ([facility]) [address] [id number] 03-12-39[address]Feyjajgjb [Mass/Vol]2.1 mg/dLNormal1.9-2.7 [facility] CenterComment on above:Performed By: #### [id number] #### [facility] ([facility]) [address] [place] [id number] 65-96-2406Wnyywbcik [Mass/Vol]3.3 mg/dLNormal 2.5-5.0UnSelect Medical Specialty Hospital - Southeast OhioComment on above:Performed By: #### [id number] #### [facility] ([facility]) [address] [address]NOVQV METABOLIC PANELon 67-62-4508Hflpy gap [Moles/Vol]9 mmol/L Normal7-20UnSelect Medical Specialty Hospital - Southeast OhioComment on above:Performed By: #### [id number] #### [facility] ([facility]) [address] [address]Svsroif [Mass/Vol]9.4 mg/dLNormal8.6-10.3UnSelect Medical Specialty Hospital - Southeast OhioComment on above:Performed By: #### [id number] #### [facility] ([facility]) [address] [address]Nldqfcad [Moles/Vol]102 mmol/AYelklw07-898KqyfgjuafiSelect Medical Specialty Hospital - Southeast OhioComment on above:Performed By: #### [id number] #### [facility] ([facility]) [address] [place] [address]BM8 [Moles/Vol]28 mmol/XJhcauf61-89SgwqvprfuoSelect Medical Specialty Hospital - Southeast OhioComment on above:Performed By: #### [id number] #### [facility] ([facility]) [address] [place] [id number] [Mass/Vol]0.70 mg/dLNormal0.70-1.30UnSelect Medical Specialty Hospital - Southeast OhioComment on above:Performed By: #### [id number] #### [facility] ([facility]) [address] [place] [id number] FILTRATION RATE ML/MIN/1.73 SQ M.MXTYXCCWV08.4 mL/min/1.73m*2Normal>60.0UnSelect Medical Specialty Hospital - Southeast OhioComment on above: Result Comment: [facility]???s estimated glomerular filtration rate (eGFR) will no [...] potential consequences that do not disproportionately affect anyone group of individuals.Performed By: #### [id number] #### [facility] ([facility]) [address] [place], [place] [id number] [Mass/Vol]106 mg/qMOkmc74-870AdbistrtogSelect Medical Specialty Hospital - Southeast OhioComment on above:Performed By: #### [id number] #### [facility] ([facility]) [address] [place], [place] [id number] [Moles/Vol]4.0 mmol/LNormal3.5-5.1UnSelect Medical Specialty Hospital - Southeast OhioComment on above:Performed By: #### [id number] #### [facility] ([facility]) [address] [place], [place] [address]Yvydet [Moles/Vol]135 mmol/TGnx127-077XapkigkootSelect Medical Specialty Hospital - Southeast OhioComment on above:Performed By: #### [id number] #### [facility] ([facility]) [address] [place], [place] [id number] nitrogen [Mass/Vol]26 mg/dLHigh7-25UnSelect Medical Specialty Hospital - Southeast OhioComment on above:Performed By: #### [id number] #### [facility] ([facility]) [address] [place], [place] [id number] NITROGEN/CREATININE (MASS RATIO) IN SER/PLAS37.1Normal [facility] CenterComment on above:Performed By: #### [id number] #### [facility] ([facility]) [address] [place], [place] [id number] WITH AUTO DIFFERENTIALon 86-90-9089Qgphpoper (Bld) [#/Vol] 0.05 10*3/uLNormal0.00-0.20UnSelect Medical Specialty Hospital - Southeast OhioComment on above: Performed By: #### [id number] #### [facility] ([facility]) [address] [place], [place] [id number]/100 WBC (Bld)0.7 %Normal0.0-1.0UnSelect Medical Specialty Hospital - Southeast OhioComment on above:Performed By: #### [id number] #### [facility] ([facility]) [address] [id number] (Bld) [#/Vol]0.37 10*3/uLNormal0.00-0.50UnSelect Medical Specialty Hospital - Southeast OhioComment on above:Performed By: #### [id number] #### [facility] ([facility]) [address] [id number]/100 WBC (Bld)4.8 %Normal0.0-6.0UnSelect Medical Specialty Hospital - Southeast OhioComment on above:Performed By: #### [id number] #### [facility] ([facility]) [address] [place], [place] [address]Cqzakfzbbey distribution width (RBC) [Ratio]15.8 %High11.5-15.0 [facility] CenterComment on above:Performed By: #### [id number] #### [facility] ([facility]) [address] [id number] MEAN CORPUSCULAR HEMOGLOBIN CONCENTRATION (G/DL) BY ZJAIUBFZL72.4 g/dLLow32.0-35.0UnSelect Medical Specialty Hospital - Southeast OhioComment on above:Performed By: #### [id number] #### [facility] ([facility]) [address] [place] [id number] (Bld) [Volume fraction]30.3 %Low39.0-55.0UnSelect Medical Specialty Hospital - Southeast OhioComment on above:Performed By: #### [id number] #### [facility] ([facility]) [address] [place], [place] [id number] (Bld) [Mass/Vol]9.5 g/dLLow13.0-17.0UnSelect Medical Specialty Hospital - Southeast OhioComment on above:Performed By: #### [id number] #### [facility] ([facility]) [address] [place], [place] [id number] granulocytes (Bld) [#/Vol]0.06 10*3/uLNormal0.00-0.20 [facility] CenterComment on above:Performed By: #### [id number] #### [facility] ([facility]) [address] [place] [id number] granulocytes/100 WBC (Bld)0.8 %Normal0.0-1.0UnSelect Medical Specialty Hospital - Southeast OhioComment on above:Performed By: #### [id number] #### [facility] ([facility]) [address] [id number] (Bld) [#/Vol]1.29 10*3/uLNormal1.20-4.00UnSelect Medical Special[facility] Hospital - Southeast OhioComment on above:Performed By: #### [id number] #### [facility] ([facility]) [address] [place] [id number]/100 WBC (Bld)16.9 %Low20.0-45.0UnSelect Medical [facility] Hospital - Southeast OhioComment on above:Performed By: #### [id number] #### [facility] ([facility]) [address] [place] [address]JBO (RBC) [Entitic mass]30.6 yuKeuwlr93.0-33.0UnSelect Medical Specialty Hospital - Southeast OhioComment on above:Performed By: #### [id number] #### [facility] ([facility]) [address] [place], [place] [address]HBC (RBC) [Entitic vol]97.7 rNWfcdwt80.0-98.0UnSelect Medical Special[facility] Hospital - Southeast OhioComment on above:Performed By: #### [id number] #### [facility] ([facility]) [address] [place] [address]Xmwxodtwe (Bld) [#/Vol]0.59 10*3/uLNormal0.10-1.00UnSelect Medical Special[facility] Hospital - Southeast OhioComment on above:Performed By: #### [id number] #### [facility] ([facility]) [address] [place], [place] [address]Crugewkwz/100 WBC (Bld)7.7 %Normal5.0-12.0UnSelect Medical Specialty Hospital - Southeast OhioComment on above:Performed By: #### [id number] #### [facility] ([facility]) [address] [address]Tjmndupdhvt (Bld) [#/Vol]5.28 10*3/uLNormal1.60-7.60UnSelect Medical Special[facility] Hospital - Southeast OhioComment on above:Performed By: #### [id number] #### [facility] ([facility]) [address] [place] [address]Meioeerzyse/100 WBC (Bld)69.1 %Iuondf51.0-72.0UnSelect Medical Specialty Hospital - Southeast OhioComment on above:Performed By: #### [id number] #### [facility] ([facility]) [address] [address]CNHT (PER 100 WBCS) BY AUTOMATED COUNT0.0 %Uxuxbe3PbeqpexfycSelect Medical Specialty Hospital - Southeast OhioComment on above:Performed By: #### [id number] #### [facility] ([facility]) [address] [place] [id number] (10*3/UL) IN BLOOD AUTOMATED [id number] 10*3/uLNormal 150-400UnSelect Medical Specialty Hospital - Southeast OhioComment on above:Performed By: #### [id number] #### [facility] ([facility]) [address] [place] [id number] (Bld) [#/Vol]3.10 10*6/uLLow4.20-5.70UnSelect Medical Special[facility] Hospital - Southeast OhioComment on above:Performed By: #### [id number] #### [facility] ([facility]) [address] [place] [id number] (Bld) [#/Vol]7.64 10*3/uLNormal4.00-10.60UnSelect [facility] Special[facility] - Southeast OhioComment on above:Performed By: #### [id number] #### [facility] ([facility]) [address] [address]TCLYQDPENmo 01-34-3042Rwvmtlaah [Mass/Vol]2.1 mg/dLNormal1.9-2.7 [facility] CenterComment on above:Performed By: #### [id number] #### [facility] ([facility]) [address] [place], [place] [address]VXUDJCZXJAkr 28-12-78[address]Atmkwekmx [Mass/Vol]3.9 mg/dLNormal 2.5-5.0UnSelect Medical Specialty Hospital - Southeast OhioComment on above:Performed By: #### [id number] #### [facility] ([facility]) [address] [place], [place] [address]UXHpm 36-33-4913Obwfdrrkooa distribution width (RBC) [Ratio]15.3 %High11.5-15.0UnSelect Medical Specialty Hospital - Southeast OhioComment on above:Performed By: #### [id number] #### [facility] ([facility]) [address] [place], [place] [address]PJPGIFYTWVO MEAN CORPUSCULAR HEMOGLOBIN CONCENTRATION (G/DL) BY QTNOYPSYY84.6 g/dLLow32.0-35.0UnSelect Medical Specialty Hospital - Southeast OhioComment on above:Performed By: #### [id number] #### [facility] ([facility]) [address] [place], [place] [address]Ohgbcoemwg (Bld) [Volume fraction]31.0 %Low39.0-55.0UnSelect Medical Specialty Hospital - Southeast OhioComment on above:Performed By: #### [id number] #### [facility] ([facility]) [address] [place], [place] [address]Trdhukcdvg (Bld) [Mass/Vol]9.8 g/dLLow13.0-17.0UnSelect Medical Special[facility] Hospital - Southeast OhioComment on above:Performed By: #### [id number] #### [facility] ([facility]) [address] [place], [place] [address]VXN (RBC) [Entitic mass]30.4 pgBlzxzd31.0-33.0UnSelect Medical Special[facility] Hospital - Southeast OhioComment on above:Performed By: #### [id number] #### [facility] ([facility]) [address] [place] [id number] (RBC) [Entitic vol]96.3 yADhtafn69.0-98.0UnSelect Medical Special[facility] Hospital - Southeast OhioComment on above:Performed By: #### [id number] #### [facility] ([facility]) [address] [place] [id number] (10*3/UL) IN BLOOD AUTOMATED [id number] 10*3/uLNormal 150-400UnSelect Medical Specialty Hospital - Southeast OhioComment on above:Performed By: #### [id number] #### [facility] ([facility]) [address] [place] [id number] (Bld) [#/Vol]3.22 10*6/uLLow4.20-5.70UnSelect Medical Special[facility] - Southeast OhioComment on above:Performed By: #### [id number] #### [facility] ([facility]) [address] [place] [id number] (Bld) [#/Vol]8.44 10*3/uLNormal4.00-10.60UnSelect [facility] Special[facility] - Southeast OhioComment on above:Performed By: #### [id number] #### [facility] ([facility]) [address] [place], [place] [address]YXFESTYCLZMHR METABOLIC PANELon 67-84-3767Ajwxxbt [Mass/Vol]3.6 g/dLNormal3.5-5.7UnSelect Medical Special[facility] Hospital - Southeast OhioComment on above:Performed By: #### [id number] #### [facility] ([facility]) [address] [place], [place] [address]DBY [Catalytic activity/Vol]99 U/WVeoezs42-156EualliswjvSelect Medical Specialty Hospital - Southeast OhioComment on above:Performed By: #### [id number] #### [facility] ([facility]) [address] [place], [place] [address]IWO [Catalytic activity/Vol]15 U/LNormal7-52UnSelect Medical Specialty Hospital - Southeast OhioComment on above:Performed By: #### [id number] #### [facility] ([facility]) [address] [place], [place] [address]Ygopf gap [Moles/Vol]7 mmol/LNormal7-20UnSelect [facility] Special[facility] - Southeast OhioComment on above:Performed By: #### [id number] #### [facility] ([facility]) [address] [place], [place] [address]TPI [Catalytic activity/Vol]14 U/IOeewqb64-47OrajzirvffSelect Medical Specialty Hospital - Southeast OhioComment on above:Performed By: #### [id number] #### [facility] ([facility]) [address] [place], [place] [address]Ndeotgvcn [Mass/Vol]0.3 mg/dLNormal0.3-1.0UnSelect [facility] Special[facility] - Southeast OhioComment on above:Performed By: #### [id number] #### [facility] ([facility]) [address] [place], [place] [address]Miqvayb [Mass/Vol]9.9 mg/dLNormal8.6-10.3UnSelect [facility] Special[facility] Southeast OhioComment on above:Performed By: #### [id number] #### [facility] ([facility]) [address] [place], [place] [address]Emqcfamz [Moles/Vol]100 mmol/OEqkwwh73-091LmhgncvuudSelect Medical Specialty Hospital - Southeast OhioComment on above:Performed By: #### [id number] #### [facility] ([facility]) [address] [place], [place] [address]XG0 [Moles/Vol]31 mmol/YMhadwu95-18JysxkmxlvxSelect Medical Specialty Hospital - Southeast OhioComment on above:Performed By: #### [id number] #### [facility] ([facility]) [address] [place], [place] [address]Trombjfcsz [Mass/Vol]0.54 mg/dLLow0.70-1.30UnSelect Medical Special[facility] Hospital - Southeast OhioComment on above:Performed By: #### [id number] #### [facility] ([facility]) [address] [place], [place] [address]FQBVIJKYDG FILTRATION RATE ML/MIN/1.73 SQ M.JFRWITWLI81.9 mL/min/1.73m*2Normal>60.0UnSelect Medical Specialty Hospital - Southeast OhioComment on above: Result Comment: [facility]???s estimated glomerular filtration rate (eGFR) will no [...] potential consequences that do not disproportionately affect anyone group of individuals.Performed By: #### [id number] #### [facility] ([facility]) [address] [place], [place] [address]Nvlfqit [Mass/Vol]98 mg/gHDzapiv55-514UlofzgevotSelect Medical Specialty Hospital - Southeast OhioComment on above:Performed By: #### [id number] #### [facility] ([facility]) [address] [place], [place] [address]Lddixbzxh [Moles/Vol]4.2 mmol/LNormal3.5-5.1UnSelect Medical Special[facility] Southeast OhioComment on above:Performed By: #### [id number] #### [facility] ([facility]) [address] [place], [place] [address]Yaacezx [Mass/Vol]7.5 g/dLNormal6.0-8.3UnSelect [facility] Special[facility] Southeast OhioComment on above:Performed By: #### [id number] #### [facility] ([facility]) [address] [place], [place] [address]Wvyikc [Moles/Vol]134 mmol/EKvc097-739TinjhumdzzSelect Medical Specialty Hospital - Southeast OhioComment on above:Performed By: #### [id number] #### [facility] ([facility]) [address] [place], [place] [address]Lzkr nitrogen [Mass/Vol]24 mg/dLNormal7-25UnSelect Medical Special[facility] Southeast OhioComment on above:Performed By: #### [id number] #### [facility] ([facility]) [address] [place] [id number] NITROGEN/CREATININE (MASS RATIO) IN SER/PLAS44.4Normal [facility] CenterComment on above:Performed By: #### [id number] #### [facility] ([facility]) [address] [address]JSJFWDYMDzt 13-58-3828Ikcsgkbvy [Mass/Vol]1.8 mg/dLLow1.9-2.7 [facility] CenterComment on above:Performed By: #### [id number] #### [facility] ([facility]) [address] [place] [id number] 92-31-5289Rmxupcwqr [Mass/Vol]2.0 mg/dLLow2.5-5.0 [facility] CenterComment on above:Performed By: #### [id number] #### [facility] ([facility]) [address] [place] [id number] 82-80-3176JWROXIO?UnknownNormalUniversCincinnati Shriners HospitalComment on above:Performed By: #### [id number] #### [facility] ([facility]) [address] [place] [address]Kpcviqyfu [Mass/Vol]106 mg/eHGljvea33-764YwwerwwitjSelect Medical Specialty Hospital - Southeast OhioComment on above:Result Comment: TRIGLYCERIDE REFERENCE RANGE: 20 YEARS AND OLDER CARDIOVASCULAR RISK LESS THAN 150 mg/dL LOW RISK 150 TO 199 mg/dL BORDERLINE RISK 200 mg/dL AND GREATER HIGH RISKPerformed By: #### [id number] #### [facility] ([facility]) [address] [place] [id number] METABOLIC PANELon 61-77-2929Czkse gap [Moles/Vol]7 mmol/L Normal7-20UnSelect Medical Specialty Hospital - Southeast OhioComment on above:Performed By: #### [id number] #### [facility] ([facility]) [address] [place] [id number] [Mass/Vol]9.5 mg/dLNormal8.6-10.3UnSelect [facility] Special[facility] - Southeast OhioComment on above:Performed By: #### [id number] #### [facility] ([facility]) [address] [place] [id number] [Moles/Vol]101 mmol/RHrbcsq12-069XgzyjkjvcdSelect Medical Specialty Hospital - Southeast OhioComment on above:Performed By: #### [id number] #### [facility] ([facility]) [address] [place] [id number] [Moles/Vol]32 mmol/LHsek30-57GumyzhuyaxSelect Medical Specialty Hospital - Southeast OhioComment on above:Performed By: #### [id number] #### [facility] ([facility]) [address] [place], [place] [address]Lfyhcmxybv [Mass/Vol]0.56 mg/dLLow0.70-1.30UnSelect Medical Specialty Hospital - Southeast OhioComment on above:Performed By: #### [id number] #### [facility] ([facility]) [address] [place] [place], [place] [address]EUOTKMLTRF FILTRATION RATE ML/MIN/1.73 SQ M.KYKGLGYJG13.8 mL/min/1.73m*2Normal>60.0UnSelect Medical Specialty Hospital - Southeast OhioComment on above: Result Comment: [facility]???s estimated glomerular filtration rate (eGFR) will no [...] potential consequences that do not disproportionately affect anyone group of individuals.Performed By: #### [id number] #### [facility] ([facility]) [address] [place], [place] [address]Pavwrrr [Mass/Vol]100 mg/pTQpjqbq01-808AyrkqdkbilSelect Medical Specialty Hospital - Southeast OhioComment on above:Performed By: #### [id number] #### [facility] ([facility]) [address] [place] [address]Srqbmldij [Moles/Vol]4.2 mmol/LNormal3.5-5.1UnSelect Medical Specialty Hospital - Southeast OhioComment on above:Performed By: #### [id number] #### [facility] ([facility]) [address] [place] [id number] [Moles/Vol]136 mmol/IHdmrvr523-480NuisxuenooSelect Medical Specialty Hospital - Southeast OhioComment on above:Performed By: #### [id number] #### [facility] ([facility]) [address] [facility] [place], [place] [address]Fkjs nitrogen [Mass/Vol]31 mg/dLHigh7-25UnSelect Medical Specialty Hospital - Southeast OhioComment on above:Performed By: #### [id number] #### [facility] ([facility]) [address] [place], [place] [address]KHGU NITROGEN/CREATININE (MASS RATIO) IN SER/PLAS55.4Normal [facility] Medical CenterComment on above:Performed By: #### [id number] #### [facility] ([facility]) [address] [place], [place] [address]TQJCUSBSLml [id number] [Mass/Vol]1.9 mg/dLNormal1.9-2.7 [facility] CenterComment on above:Performed By: #### [id number] #### [facility] ([facility]) [address] HOSP[place]ALTobias [place], [place] [address]KJW WITH AUTO DIFFERENTIALon 48-60-1585Yinuoiyuv (Bld) [#/Vol] 0.03 10*3/uLNormal0.00-0.20UnSelect Medical Specialty Hospital - Southeast OhioComment on above: Performed By: #### [id number] #### [facility] ([facility]) [address] [facility] [place], [place] [address]Kkxmjobml/100 WBC (Bld)0.4 %Normal0.0-1.0UnSelect [facility] Hospital - Southeast OhioComment on above:Performed By: #### [id number] #### [facility] ([facility]) [address] [place] [id number] (Bld) [#/Vol]0.42 10*3/uLNormal0.00-0.50UnSelect [facility] Special[facility] Hospital - Southeast OhioComment on above:Performed By: #### [id number] #### [facility] ([facility]) [address] [place] [id number]/100 WBC (Bld)5.6 %Normal0.0-6.0UnSelect [facility] Hospital - Southeast OhioComment on above:Performed By: #### [id number] #### [facility] ([facility]) [address] [place] [id number] distribution width (RBC) [Ratio]15.9 %High11.5-15.0 [facility] CenterComment on above:Performed By: #### [id number] #### [facility] ([facility]) [address] [place], [place] [address]FUYOFKILGVW MEAN CORPUSCULAR HEMOGLOBIN CONCENTRATION (G/DL) BY RWMHPOPPL62.2 g/dLLow32.0-35.0UnSelect [facility] Hospital - Southeast OhioComment on above:Performed By: #### [id number] #### [facility] ([facility]) [address] [place] [id number] (Bld) [Volume fraction]28.2 %Low39.0-55.0UnSelect [facility] Hospital - Southeast OhioComment on above:Performed By: #### [id number] #### [facility] ([facility]) [address]LLT[facility]ias [place], [place] [address]Iopvkegjbu (Bld) [Mass/Vol]8.8 g/dLLow13.0-17.0UnSelect [facility] Special[facility] Hospital - Southeast OhioComment on above:Performed By: #### [id number] #### [facility] ([facility]) [address] [place], [place] [id number] granulocytes (Bld) [#/Vol]0.04 10*3/uLNormal0.00-0.20 [facility] CenterComment on above:Performed By: #### [id number] #### [facility] ([facility] [address] [place] [id number] granulocytes/100 WBC (Bld)0.5 %Normal0.0-1.0UnSelect [facility] Hospital - Southeast OhioComment on above:Performed By: #### [id number] #### [facility] ([facility]) [address] [place], [place] [address]Rjtkimijque (Bld) [#/Vol]1.18 10*3/uLLow1.20-4.00UnSelect [facility] Special[facility] Hospital - Southeast OhioComment on above:Performed By: #### [id number] #### [facility] ([facility]) [address] [place], [place] [address]Ihdypyidhxh/100 WBC (Bld)15.6 %Low20.0-45.0UnSelect [facility] Special[facility] Hospital - Southeast OhioComment on above:Performed By: #### [id number] #### [facility] ([facility]) [address] [facility] [place], [place] [address]AFF (RBC) [Entitic mass]30.6 haLezxdq41.0-33.0UnSelect [facility] Specialty Hospital - Southeast OhioComment on above:Performed By: #### [id number] #### [facility] ([facility]) [address] [place], [place] [address]RYV (RBC) [Entitic vol]97.9 kUIrqnti36.0-98.0UnSelect [facility] Specialty Hospital - Southeast OhioComment on above:Performed By: #### [id number] #### [facility] ([facility]) [address] [place], [place] [address]Tjaijsttn (Bld) [#/Vol]0.53 10*3/uLNormal0.10-1.00UnSelect [facility] Special[facility] Hospital - Southeast OhioComment on above:Performed By: #### [id number] #### [facility] ([facility]) [address] [place], [place] [address]Lrczncaxz/100 WBC (Bld)7.0 %Normal5.0-12.0Un[facility] Special[facility] Hospital - Southeast OhioComment on above:Performed By: #### [id number] #### [facility] ([facility]) [address] [place] [address]Vretjugakus (Bld) [#/Vol]5.34 10*3/uLNormal1.60-7.60UnSelect [facility] Special[facility] Hospital - Southeast OhioComment on above:Performed By: #### [id number] #### [facility] ([facility]) [address] [place] [address]Lfammynuibf/100 WBC (Bld)70.9 %Lkgggg10.0-72.0UnSelect [facility] Special[facility] Hospital - Southeast OhioComment on above:Performed By: #### [id number] #### [facility] ([facility]) [address] [place] [address]YBJR (PER 100 WBCS) BY AUTOMATED COUNT0.0 %Zzyvdi5PprvkbbkoeSelect Medical Specialty Hospital - Southeast OhioComment on above:Performed By: #### [id number] #### [facility] ([facility]) [address] [place] [address]HCUISDRAJ (10*3/UL) IN BLOOD AUTOMATED [id number] 10*3/uLNormal 150-400UnSelect Medical Specialty Hospital - Southeast OhioComment on above:Performed By: #### [id number] #### [facility] ([facility]) [address] [place] [address]JMA (Bld) [#/Vol]2.88 10*6/uLLow4.20-5.70UnSelect [facility] Specialty Hospital - Southeast OhioComment on above:Performed By: #### [id number] #### [facility] ([facility]) [address] [place], [place] [address]ZTI (Bld) [#/Vol]7.54 10*3/uLNormal4.00-10.60Un[facility] Hospital - Southeast OhioComment on above:Performed By: #### [id number] #### [facility] ([facility]) [address] [place], [place] [address]FBCQJZBBRNQSL METABOLIC PANELon 84-60-7888Tolrglh [Mass/Vol]3.3 g/dLLow3.5-5.7UnSelect Medical Specialty Hospital - Southeast OhioComment on above:Performed By: #### [id number] #### [facility] ([facility]) [address] [place], [place] [address]OUO [Catalytic activity/Vol]88 U/DSxznie14-550IuvtnnpianSelect Medical Specialty Hospital - Southeast OhioComment on above:Performed By: #### [id number] #### [facility] ([facility]) [address] [place], [place] [address]WBZ [Catalytic activity/Vol]13 U/LNormal7-52UnSelect Medical Specialty Hospital - Southeast OhioComment on above:Performed By: #### [id number] #### [facility] ([facility]) [address] [place], [place] [address]Sttev gap [Moles/Vol]6 mmol/LLow7-20UnSelect [facility] Special[facility] Hospital - Southeast OhioComment on above:Performed By: #### [id number] #### [facility] ([facility]) [address] [place], [place] [address]SUD [Catalytic activity/Vol]16 U/RCarqqg06-81EonqcpgitdSelect Medical Specialty Hospital - Southeast OhioComment on above:Performed By: #### [id number] #### [facility] ([facility]) [address] [place], [place] [address]Ojojtnsdm [Mass/Vol]0.3 mg/dLNormal0.3-1.0UnSelect [facility] Special[facility] Hospital - Southeast OhioComment on above:Performed By: #### [id number] #### [facility] ([facility]) [address] [place], [place] [address]Eleadhz [Mass/Vol]9.4 mg/dLNormal8.6-10.3UnSelect [facility] Special[facility] Hospital - Southeast OhioComment on above:Performed By: #### [id number] #### [facility] ([facility]) [address] [place], [place] [address]Mkxmcedj [Moles/Vol]99 mmol/VQahvmq38-422Wtvjlybraj of Rojas Medical CenterComment on above:Performed By: #### [id number] #### [facility] ([facility]) [address] [place] [id number] [Moles/Vol]32 mmol/WTdff09-60YqcfofqlmpSelect Medical Specialty Hospital - Southeast OhioComment on above:Performed By: #### [id number] #### [facility] ([facility]) [address] [place] [id number] [Mass/Vol]0.71 mg/dLNormal0.70-1.30UnSelect [facility] Hospital - Southeast OhioComment on above:Performed By: #### [id number] #### [facility] ([facility]) [address] [place] [id number] FILTRATION RATE ML/MIN/1.73 SQ M.OIDXCYUWC12.0 mL/min/1.73m*2Normal>60.0UnSelect [facility] Special[facility] Hospital - Southeast OhioComment on above: Result Comment: [facility]???s estimated glomerular filtration rate (eGFR) will no [...] potential consequences that do not disproportionately affect anyone group of individuals.Performed By: #### [id number] #### [facility] ([facility]) [address] [place] [id number] [Mass/Vol]87 mg/rWZghagv55-937FgpgjllkqhSelect Medical Specialty Hospital - Southeast OhioComment on above:Performed By: #### [id number] #### [facility] ([facility]) [address] [place] [id number] [Moles/Vol]4.4 mmol/LNormal3.5-5.1UnSelect [facility] - Southeast OhioComment on above:Performed By: #### [id number] #### [facility] ([facility]) [address] [place] [id number] [Mass/Vol]6.9 g/dLNormal6.0-8.3UnSelect [facility] - Southeast OhioComment on above:Performed By: #### [id number] #### [facility] ([facility]) [address] [place] [address]Fiaapn [Moles/Vol]133 mmol/UQag677-314AsxgayxiwqSelect Medical Specialty Hospital - Southeast OhioComment on above:Performed By: #### [id number] #### [facility] ([facility]) [address] [place] [id number] nitrogen [Mass/Vol]61 mg/dLHigh7-25UnSelect [facility] Special[facility] Hospital - Southeast OhioComment on above:Performed By: #### [id number] #### [facility] ([facility]) [address] [place] [id number] NITROGEN/CREATININE (MASS RATIO) IN SER/PLAS85.9Normal [facility] CenterComment on above:Performed By: #### [id number] #### [facility] ([facility]) [address] [place] [id number] 31-59-7680Prgtbxnsi [Mass/Vol]2.2 mg/dLNormal1.9-2.7 [facility] CenterComment on above:Performed By: #### [id number] #### [facility] ([facility]) [address] [place] [id number] 64-09-9894Dyuwlobuj [Mass/Vol]3.1 mg/dLNormal 2.5-5.0UnSelect [facility] Hospital - Southeast OhioComment on above:Performed By: #### [id number] #### [facility] ([facility]) [address] [place] [id number], FREEon 78-75-5002OTRMUQSMR (T4) FREE (NG/DL) IN SER/PLAS1.06 ng/dLNormal0.71-1.85UnSelect [facility] Specialty Hospital - Southeast OhioComment on above: Performed By: #### [id number] #### [facility] ([facility]) [address] [place] [address]FVUof 43-29-5047WSCDVBKAPSS (MIU/L) IN SER/PLAS BY DETECTION LIMIT <= 0.05 MIU/L2.15 mIU/LNormal0.34-5.60Un[facility] [place] Comment on above:Performed By: #### [id number] #### [facility] ([facility]) [address] [place], [place] [address]ZLMWO METABOLIC PANELon 01-55-7099Adurs gap [Moles/Vol]6 mmol/L Low7-20UnSelect [facility] Hospital - Southeast OhioComment on above:Performed By: #### [id number] #### [facility] ([facility]) [address] [place], [place] [address]Geihigb [Mass/Vol]9.6 mg/dLNormal8.6-10.3Un[facility] Southeast OhioComment on above:Performed By: #### [id number] #### [facility] ([facility]) [address] [place], [place] [address]Bpxvavkr [Moles/Vol]99 mmol/AAgpoyz22-858QxpndmaqzgSelect Medical Specialty Hospital - Southeast OhioComment on above:Performed By: #### [id number] #### [facility] ([facility]) [address] [place], [place] [address]JG5 [Moles/Vol]31 mmol/NJtiagg65-61WtemnupwycSelect Medical Specialty Hospital - Southeast OhioComment on above:Performed By: #### [id number] #### [facility] ([facility]) [address] [place], [place] [address]Gyzmngtelb [Mass/Vol]0.96 mg/dLNormal0.70-1.30UnSelect [facility] Special[facility] Hospital - Southeast OhioComment on above:Performed By: #### [id number] #### [facility] ([facility]) [address] [place], [place] [address]ZACNTXABCR FILTRATION RATE ML/MIN/1.73 SQ M.LCWWZSXSL71.4 mL/min/1.73m*2Normal>60.0UnSelect [facility] Special[facility] Hospital - Southeast OhioComment on above: Result Comment: [facility]???s estimated glomerular filtration rate (eGFR) will no [...] potential consequences that do not disproportionately affect anyone group of individuals.Performed By: #### [id number] #### [facility] ([facility]) [address] [place] [id number] [Mass/Vol]104 mg/mGDrad41-020JoxtulntowSelect Medical Specialty Hospital - Southeast OhioComment on above:Performed By: #### [id number] #### [facility] ([facility]) [address] [place] [id number] [Moles/Vol]5.3 mmol/LHigh3.5-5.1UnSelect Medical Special[facility] Hospital - Southeast OhioComment on above:Performed By: #### [id number] #### [facility] ([facility]) [address] [place] [id number] [Moles/Vol]131 mmol/XIji140-090GklbcxvszpSelect Medical Specialty Hospital - Southeast OhioComment on above:Performed By: #### [id number] #### [facility] ([facility]) [address] [place] [id number] nitrogen [Mass/Vol]61 mg/dLHigh7-25UnSelect [facility] Special[facility] Hospital - Southeast OhioComment on above:Performed By: #### [id number] #### [facility] ([facility]) [address] [place], [place] [id number] NITROGEN/CREATININE (MASS RATIO) IN SER/PLAS63.5Normal [facility] CenterComment on above:Performed By: #### [id number] #### [facility] ([facility]) [address] [place] [id number] WITH AUTO DIFFERENTIALon 60-71-7329Dtracwzcs (Bld) [#/Vol] 0.03 10*3/uLNormal0.00-0.20UnSelect [facility] - Southeast OhioComment on above: Performed By: #### [id number] #### [facility] ([facility]) [address] [facility] [place], [place] [address]Yybohubge/100 WBC (Bld)0.4 %Normal0.0-1.0UnSelect [facility] - Southeast OhioComment on above:Performed By: #### [id number] #### [facility] ([facility]) [address] [place], [place] [address]Vsyjfnodtzi (Bld) [#/Vol]0.23 10*3/uLNormal0.00-0.50UnSelect [facility] - Southeast OhioComment on above:Performed By: #### [id number] #### [facility] ([facility]) [address] [place], [place] [address]Sqrxjttprvz/100 WBC (Bld)3.0 %Normal0.0-6.0UnSelect [facility] - Southeast OhioComment on above:Performed By: #### [id number] #### [facility] ([facility]) [address] [place], [place] [address]Patrvygrwnr distribution width (RBC) [Ratio]15.9 %High11.5-15.0 [facility] CenterComment on above:Performed By: #### [id number] #### [facility] ([facility]) [address] [place], [place] [address]QPWMWZFVHQL MEAN CORPUSCULAR HEMOGLOBIN CONCENTRATION (G/DL) BY XVVORSWKL40.4 g/dLLow32.0-35.0UnSelect [facility] - Southeast OhioComment on above:Performed By: #### [id number] #### [facility] ([facility]) [address] [place], [place] [address]Rutvstsllb (Bld) [Volume fraction]27.1 %Low39.0-55.0Un[facility] - Southeast OhioComment on above:Performed By: #### [id number] #### [facility] ([facility]) [address] [facility] [place] [address]Afotbbflea (Bld) [Mass/Vol]8.5 g/dLLow13.0-17.0UnSelect [facility] - Southeast OhioComment on above:Performed By: #### [id number] #### [facility] ([facility]) [address] [facility] ILLTobias [place], [place] [address]Wqfelpth granulocytes (Bld) [#/Vol]0.04 10*3/uLNormal0.00-0.20 [facility] CenterComment on above:Performed By: #### [id number] #### [facility] ([facility]) [address] [facility] [place], [place] [address]Ctbhhgyi granulocytes/100 WBC (Bld)0.5 %Normal0.0-1.0UnSelect [facility] - Southeast OhioComment on above:Performed By: #### [id number] #### [facility] ([facility]) [address] [facility] [place], [place] [address]Txxtfqtalaz (Bld) [#/Vol]1.02 10*3/uLLow1.20-4.00UnSelect [facility] Special[facility] - Southeast OhioComment on above:Performed By: #### [id number] #### [facility] ([facility]) [address] [place], [place] [address]Xipwoouzkbx/100 WBC (Bld)13.3 %Low20.0-45.0UnSelect [facility] - Southeast OhioComment on above:Performed By: #### [id number] #### [facility] ([facility]) [address] [facility] [place], [place] [address]ATW (RBC) [Entitic mass]30.7 olRgbnin25.0-33.0UnSelect [facility] - Southeast OhioComment on above:Performed By: #### [id number] #### [facility] ([facility]) [address] [facility] [place] [address]FHR (RBC) [Entitic vol]97.8 rGApbmgg55.0-98.0UnSelect [facility] - Southeast OhioComment on above:Performed By: #### [id number] #### [facility] ([facility]) [address] [place] [id number] (Bld) [#/Vol]0.59 10*3/uLNormal0.10-1.00UnSelect [facility] - Southeast OhioComment on above:Performed By: #### [id number] #### [facility] ([facility]) [address] [place] [id number]/100 WBC (Bld)7.7 %Normal5.0-12.0UnSelect [facility] - Southeast OhioComment on above:Performed By: #### [id number] #### [facility] ([facility]) [address] [place] [id number] (Bld) [#/Vol]5.77 10*3/uLNormal1.60-7.60UnSelect [facility] Special[facility] - Southeast OhioComment on above:Performed By: #### [id number] #### [facility] ([facility]) [address] [place] [id number]/100 WBC (Bld)75.1 %High40.0-72.0UnSelect [facility] - Southeast OhioComment on above:Performed By: #### [id number] #### [facility] ([facility]) [address] [place] [id number] (PER 100 WBCS) BY AUTOMATED COUNT0.0 %Qgloey7XquayxnernSelect Medical Specialty Hospital - Southeast OhioComment on above:Performed By: #### [id number] #### [facility] ([facility]) [address] [place] [id number] (10*3/UL) IN BLOOD AUTOMATED [id number] 10*3/uLNormal 150-400UnSelect [facility] Specialty Hospital - Southeast OhioComment on above:Performed By: #### [id number] #### [facility] ([facility]) [address] [place] [id number] (Bld) [#/Vol]2.77 10*6/uLLow4.20-5.70UnSelect [facility] Special[facility] - Southeast OhioComment on above:Performed By: #### [id number] #### [facility] ([facility]) [address] [place] [id number] (Bld) [#/Vol]7.68 10*3/uLNormal4.00-10.60UnSelect [facility] - Southeast OhioComment on above:Performed By: #### [id number] #### [facility] ([facility]) [address] [place] [id number] 58-89-5089Qlytinekx [Mass/Vol]2.2 mg/dLNormal1.9-2.7 [facility] CenterComment on above:Performed By: #### [id number] #### [facility] ([facility]) [address] [place] [id number], FREEon 53-73-9587KWBJRSVJC (T4) FREE (NG/DL) IN SER/PLAS0.92 ng/dLNormal0.71-1.85UnSelect [facility] Specialty Hospital - Southeast OhioComment on above: Performed By: #### [id number] #### [facility] ([facility]) [address] [place] [id number] 83-88-8920DHUFYSXCZJI (MIU/L) IN SER/PLAS BY DETECTION LIMIT <= 0.05 MIU/L2.35 mIU/LNormal0.34-5.60Un[facility] [place] Comment on above:Performed By: #### [id number] #### [facility] ([facility]) [address] [place] [id number] 63-58-0547Myizihpuhfg distribution width (RBC) [Ratio]16.0 %High11.5-15.0UnSelect [facility] Special[facility] Hospital - Southeast OhioComment on above:Performed By: #### [id number] #### [facility] ([facility]) [address] [place] [id number] MEAN CORPUSCULAR HEMOGLOBIN CONCENTRATION (G/DL) BY DQTLAQYMH98.8 g/dLLow32.0-35.0UnSelect [facility] - Southeast OhioComment on above:Performed By: #### [id number] #### [facility] ([facility]) [address] [place], [place] [address]Qvczwdvsbv (Bld) [Volume fraction]32.2 %Low39.0-55.0UnSelect [facility] - Southeast OhioComment on above:Performed By: #### [id number] #### [facility] ([facility]) [address] [place] [id number] (Bld) [Mass/Vol]9.6 g/dLLow13.0-17.0UnSelect [facility] - Southeast OhioComment on above:Performed By: #### [id number] #### [facility] ([facility]) [address] [place], [place] [address]XCC (RBC) [Entitic mass]30.5 vnIrkskg36.0-33.0UnSelect [facility] - Southeast OhioComment on above:Performed By: #### [id number] #### [facility] ([facility]) [address] [place], [place] [address]PNK (RBC) [Entitic vol]102.2 qRGrjg22.0-98.0UnSelect [facility] Hospital - Southeast OhioComment on above:Performed By: #### [id number] #### [facility] ([facility]) [address] [place], [place] [address]QYFEHVJAI (10*3/UL) IN BLOOD AUTOMATED [id number] 10*3/uLNormal 150-400UnSelect [facility] Specialty Hospital - Southeast OhioComment on above:Performed By: #### [id number] #### [facility] ([facility]) [address] [place], [place] [address]MCF (Bld) [#/Vol]3.15 10*6/uLLow4.20-5.70UnSelect [facility] - [place]Comment [place]:Performed By: #### [id number] #### [facility] ([facility]) [address] [place], [place] [address]RIJ (Bld) [#/Vol]7.80 10*3/uLNormal4.00-10.60UnSelect [facility] - [place]Comment [place]:Performed By: #### [id number] #### [facility] ([facility]) [address] [place], [place] [id number] METABOLIC PANELon 42-47-6095Naehutn [Mass/Vol]3.7 g/dLNormal3.5-5.7UnSelect [facility] - [place]Comment on above:Performed By: #### [id number] #### [facility] ([facility]) [address] [place], [place] [address]XUV [Catalytic activity/Vol]112 U/HQqzn77-806QofnprijicSelect Medical Specialty Hospital - [place]Comment on above:Performed By: #### [id number] #### [facility] ([facility]) [address] [place], [place] [address]SBR [Catalytic activity/Vol]13 U/LNormal7-52UnSelect [facility] - [place]Comment on above:Performed By: #### [id number] #### [facility] ([facility]) [address] [place], [place] [address]Jhmmb gap [Moles/Vol]12 mmol/LNormal7-20UnSelect [facility] - [place]Comment on above:Performed By: #### [id number] #### [facility] ([facility]) [address] [place], [place] [address]FRH [Catalytic activity/Vol]19 U/BIyanvo13-59TycmsqooixSelect Medical Specialty Hospital - [place]Comment on above:Performed By: #### [id number] #### [facility] ([facility]) [address] [place], [place] [address]Intpkcfhh [Mass/Vol]0.3 mg/dLNormal0.3-1.0Un[facility] - [place]Comment on [place]:Performed By: #### [id number] #### [facility] ([facility]) [address] [place], [place] [address]Lowwpyw [Mass/Vol]9.9 mg/dLNormal8.6-10.3UnSelect Medical Specialty Hospital - [place]Comment on above:Performed By: #### [id number] #### [facility] ([facility]) [address] [place], [place] [address]Ehlnrvsj [Moles/Vol]100 mmol/QYasfnw87-339ZinpncklraSelect Medical Specialty Hospital - Southeast OhioComment on above:Performed By: #### [id number] #### [facility] ([facility]) [address] [place] [id number] [Moles/Vol]25 mmol/DDbtxza24-65VvxhqqkcrlSelect Medical Specialty Hospital - Southeast [place]Comment on above:Performed By: #### [id number] #### [facility] ([facility]) [address] [place] [id number] [Mass/Vol]0.62 mg/dLLow0.70-1.30UnSelect Medical Specialty Hospital - [place]Comment on above:Performed By: #### [id number] #### [facility] ([facility]) [address] [place] [place] [id number] FILTRATION RATE ML/MIN/1.73 SQ M.IVSKCZHIC34.8 mL/min/1.73m*2Normal>60.0UnSelect Medical Specialty Hospital - [place]Comment on above: Result Comment: [facility]???s estimated glomerular filtration rate (eGFR) will no [...] potential consequences that do not disproportionately affect anyone group of individuals.Performed By: #### [id number] #### [facility] ([facility]) [address] [place] [id number] [Mass/Vol]99 mg/yORyjpen13-414ItauizurvlSelect Medical Specialty Hospital - Southeast [place]Comment on above:Performed By: #### [id number] #### [facility] ([facility]) [address] [place] [id number] [Moles/Vol]4.6 mmol/LNormal3.5-5.1UnSelect Medical Specialty Hospital - [place]Comment on above:Performed By: #### [id number] #### [facility] ([facility]) [address] [place] [id number] [Mass/Vol]7.4 g/dLNormal6.0-8.3UnSelect Medical Specialty Hospital - [place]Comment on above:Performed By: #### [id number] #### [facility] ([facility]) [address] [place] [id number] [Moles/Vol]132 mmol/SWly551-319WjlcalcxcvSelect Medical Specialty Hospital - Southeast OhioComment on above:Performed By: #### [id number] #### [facility] ([facility]) [address] [place] [id number] nitrogen [Mass/Vol]47 mg/dLHigh7-25UnSelect Medical Specialty Hospital - [place]Comment on above:Performed By: #### [id number] #### [facility] ([facility]) [address] [place] [id number] NITROGEN/CREATININE (MASS RATIO) IN SER/PLAS75.8Normal [facility] CenterComment on above:Performed By: #### [id number] #### [facility] ([facility]) [address] [place] [id number] 51-59-3898Reeiankwf [Mass/Vol]1.9 mg/dLNormal1.9-2.7 [facility] CenterComment on above:Performed By: #### [id number] #### [facility] ([facility]) [address] [place] [id number] 26-82-7119Edrxddumo [Mass/Vol]3.1 mg/dLNormal 2.5-5.0UnSelect Medical Specialty Hospital - [place]Comment on above:Performed By: #### [id number] #### [facility] ([facility]) [address] [place] [id number] 47-40-0833Jljsglalprq distribution width (RBC) [Ratio]15.6 %High11.5-15.0UnSelect Medical Specialty Hospital - [place]Comment on above:Performed By: #### [id number] #### [facility] ([facility]) [address] [place] [id number] MEAN CORPUSCULAR HEMOGLOBIN CONCENTRATION (G/DL) BY VMYYMXIVF57.8 g/dLLow32.0-35.0UnSelect [facility] Specialty Hospital - [place]Comment on above:Performed By: #### [id number] #### [facility] ([facility]) [address] [place] [id number] (Bld) [Volume fraction]30.2 %Low39.0-55.0UnSelect Medical Specialty Hospital - [place]Comment on above:Performed By: #### [id number] #### [facility] ([facility]) [address] [place] [id number] (Bld) [Mass/Vol]9.3 g/dLLow13.0-17.0UnSelect [facility] Specialty Hospital - [place]Comment on above:Performed By: #### [id number] #### [facility] ([facility]) [address] [place] [id number] (RBC) [Entitic mass]30.7 mcXufopz27.0-33.0UnSelect [facility] Specialty Hospital - [place]Comment on above:Performed By: #### [id number] #### [facility] ([facility]) [address] [place] [id number] (RBC) [Entitic vol]99.7 hYRubt04.0-98.0UnSelect Medical Specialty Hospital - [place]Comment on above:Performed By: #### [id number] #### [facility] ([facility]) [address] [place] [id number] (10*3/UL) IN BLOOD AUTOMATED [id number] 10*3/uLNormal 150-400UnSelect Medical Specialty Hospital - [place]Comment on above:Performed By: #### [id number] #### [facility] ([facility]) [address] [place] [id number] (Bld) [#/Vol]3.03 10*6/uLLow4.20-5.70UnSelect Medical Specialty Hospital - [place]Comment on above:Performed By: #### [id number] #### [facility] ([facility]) [address] [place] [id number] (Bld) [#/Vol]6.87 10*3/uLNormal4.00-10.60UnSelect [facility] Specialty Hospital - [place]Comment on above:Performed By: #### [id number] #### [facility] ([facility]) [address] [place] [id number] METABOLIC PANELon 89-62-1888Wlhdgaq [Mass/Vol]3.3 g/dLLow3.5-5.7UnSelect Medical Specialty Hospital - [place]Comment on above:Performed By: #### [id number] #### [facility] ([facility]) [address] [place] [address]QPB [Catalytic activity/Vol]111 U/SLefx96-532LapckxlcpxSelect Medical Specialty Hospital - Southeast OhioComment on above:Performed By: #### [id number] #### [facility] ([facility]) [address] [place] [address]SOR [Catalytic activity/Vol]15 U/LNormal7-52UnSelect Medical Specialty Hospital - [place] OhioComment on above:Performed By: #### [id number] #### [facility] ([facility]) [address] [place] [address]Aabxa gap [Moles/Vol]10 mmol/LNormal7-20UnSelect Medical Specialty Hospital - [place]Comment on above:Performed By: #### [id number] #### [facility] ([facility]) [address] [place] [address]GPX [Catalytic activity/Vol]17 U/IJchcri05-50XuygssuavhSelect Medical Specialty Hospital - Southeast OhioComment on above:Performed By: #### [id number] #### [facility] ([facility]) [address] [place] [address]Lnfwbzbwc [Mass/Vol]0.3 mg/dLNormal0.3-1.0UnSelect Medical Specialty Hospital - [place]Comment on above:Performed By: #### [id number] #### [facility] ([facility]) [address] [place], [place] [address]Kpkjxak [Mass/Vol]9.2 mg/dLNormal8.6-10.3UnSelect [facility] Special[facility] Hospital - [place]Comment on above:Performed By: #### [id number] #### [facility] ([facility]) [address] [place], [place] [address]Rgrkwaaz [Moles/Vol]101 mmol/QQxlgzx42-949QyvabamihnSelect Medical Specialty Hospital - Southeast OhioComment on above:Performed By: #### [id number] #### [facility] ([facility]) [address] [place], [place] [address]FP8 [Moles/Vol]28 mmol/KUbfgmz51-48PovgpowgdhSelect Medical Specialty Hospital - Southeast OhioComment on above:Performed By: #### [id number] #### [facility] ([facility]) [address] [place], [place] [address]Xcvbrxifnk [Mass/Vol]0.70 mg/dLNormal0.70-1.30UnSelect [facility] Special[facility] Hospital - [place]Comment on above:Performed By: #### [id number] #### [facility] ([facility]) [address] [place], [place] [address]DBYTPHPRCI FILTRATION RATE ML/MIN/1.73 SQ M.VMCBDSBEV46.4 mL/min/1.73m*2Normal>60.0UnSelect [facility] Specialty Hospital - [place] OhioComment on above: Result Comment: [facility]???s estimated glomerular filtration rate (eGFR) will no [...] potential consequences that do not disproportionately affect anyone group of individuals.Performed By: #### [id number] #### [facility] ([facility]) [address] [place], [place] [address]Jjtvevz [Mass/Vol]87 mg/pUSkiarl86-943QyqenhucdpSelect Medical Specialty Hospital - Southeast OhioComment on above:Performed By: #### [id number] #### [facility] ([facility]) [address] [place], [place] [address]Eewcolbmo [Moles/Vol]4.8 mmol/LNormal3.5-5.1UnSelect [facility] Special[facility] Hospital - [place]Comment on above:Performed By: #### [id number] #### [facility] ([facility]) [address] [place], [place] [address]Xbtleel [Mass/Vol]6.5 g/dLNormal6.0-8.3UnSelect Medical Specialty Hospital - [place]Comment on above:Performed By: #### [id number] #### [facility] ([facility]) [address] [place] [address]Xkqjyn [Moles/Vol]134 mmol/YJbu216-584KtspxokhuwSelect Medical Specialty Hospital - Southeast [place]Comment on above:Performed By: #### [id number] #### [facility] ([facility]) [address] [place], [place] [address]Knge nitrogen [Mass/Vol]39 mg/dLHigh7-25UnSelect [facility] Specialty Hospital - [place]Comment on above:Performed By: #### [id number] #### [facility] ([facility]) [address] [place], [place] [address]BFIJ NITROGEN/CREATININE (MASS RATIO) IN SER/PLAS55.7Normal [facility] CenterComment on above:Performed By: #### [id number] #### [facility] ([facility]) [address] [place], [place] [address]IULFROVLZoh 17-80-2369Rmsbapneh [Mass/Vol]2.0 mg/dLNormal1.9-2.7 [facility] CenterComment on above:Performed By: #### [id number] #### [facility] ([facility]) [address] [place], [place] [address]MVBXXOGZYFfa 65-86-7854Wdpoctgwc [Mass/Vol]3.2 mg/dLNormal 2.5-5.0UnSelect [facility] Specialty Hospital - [place]Comment on above:Performed By: #### [id number] #### [facility] ([facility]) [address] [place] [id number] 80-18-5984ZWNYLYV?UnknownNormalUniversCincinnati Shriners HospitalComment on above:Performed By: #### [id number] #### [facility] ([facility]) [address] [place] [id number] [Mass/Vol]119 mg/mJYqgwhj20-584LxlezxbozlSelect Medical Specialty Hospital - Southeast [place]Comment on above:Result Comment: TRIGLYCERIDE REFERENCE RANGE: 20 YEARS AND OLDER CARDIOVASCULAR RISK LESS THAN 150 mg/dL LOW RISK 150 TO 199 mg/dL BORDERLINE RISK 200 mg/dL AND GREATER HIGH RISKPerformed By: #### [id number] #### [facility] ([facility]) [address] [place] [id number] BLOOD X 1, STOOLon 21-18-0974PLZRJMGWRV GASTROINTESTINAL PRESENCE IN STOOLNegativeNormalNegative, None DetectedUnSelect Medical Specialty Hospital - Southeast OhioComment on above:Performed By: #### [id number] #### [facility] ([facility]) [address] [place] [id number] 48-31-9909Ingngsequwg distribution width (RBC) [Ratio]15.7 %High11.5-15.0UnSelect [facility] Specialty Hospital - [place] OhioComment on above:Performed By: #### [id number] #### [facility] ([facility]) [address] [place], [place] [address]CWVSXHQCMZP MEAN CORPUSCULAR HEMOGLOBIN CONCENTRATION (G/DL) BY HEDOQDZFJ23.6 g/dLLow32.0-35.0UnSelect [facility] Specialty Hospital - [place]Comment on above:Performed By: #### [id number] #### [facility] ([facility]) [address] [place] [id number] (Bld) [Volume fraction]27.8 %Low39.0-55.0UnSelect [facility] Special[facility] - [place]Comment on above:Performed By: #### [id number] #### [facility] ([facility]) [address] [place] [id number] (Bld) [Mass/Vol]8.5 g/dLLow13.0-17.0UnSelect [facility] Special[facility] Hospital - [place]Comment on above:Performed By: #### [id number] #### [facility] ([facility]) [address] [place] [id number] (RBC) [Entitic mass]30.1 eeFwjmde57.0-33.0UnSelect [facility] Special[facility] Hospital - [place]Comment on above:Performed By: #### [id number] #### [facility] ([facility]) [address] [place] [id number] (RBC) [Entitic vol]98.6 yHRmoz10.0-98.0UnSelect [facility] Specialty Hospital - [place]Comment on above:Performed By: #### [id number] #### [facility] ([facility]) [address] [place] [id number] (10*3/UL) IN BLOOD AUTOMATED [id number] 10*3/uLNormal 150-400UnSelect Medical Specialty Hospital - [place] OhioComment on above:Performed By: #### [id number] #### [facility] ([facility]) [address] [place] [id number] (Bld) [#/Vol]2.82 10*6/uLLow4.20-5.70UnSelect Medical Specialty Hospital - [place]Comment on above:Performed By: #### [id number] #### [facility] ([facility]) [address] [place] [id number] (Bld) [#/Vol]5.28 10*3/uLNormal4.00-10.60UnSelect [facility] Special[facility] - [place]Comment on above:Performed By: #### [id number] #### [facility] ([facility]) [address] [place] [id number] METABOLIC PANELon 40-27-8556Qrkgfki [Mass/Vol]3.1 g/dLLow3.5-5.7UnSelect Medical Specialty Hospital - Southeast OhioComment on above:Performed By: #### [id number] #### [facility] ([facility]) [address] [place], [place] [address]EDV [Catalytic activity/Vol]106 U/ZYedi64-488TuhwvxlgyvSelect Medical Specialty Hospital - Southeast OhioComment on above:Performed By: #### [id number] #### [facility] ([facility]) [address] [place], [place] [address]LZR [Catalytic activity/Vol]14 U/LNormal7-52UnSelect Medical Specialty Hospital - [place] OhioComment on above:Performed By: #### [id number] #### [facility] ([facility]) [address] [place], [place] [address]Brjpl gap [Moles/Vol]6 mmol/LLow7-20UnSelect [facility] Special[facility] - [place] OhioComment on above:Performed By: #### [id number] #### [facility] ([facility]) [address] [place], [place] [address]QSE [Catalytic activity/Vol]18 U/NZfrpuw39-46VriiffezbuSelect Medical Specialty Hospital - Southeast OhioComment on above:Performed By: #### [id number] #### [facility] ([facility]) [address] [place], [place] [address]Msgzcxspf [Mass/Vol]0.3 mg/dLNormal0.3-1.0UnSelect [facility] Special[facility] - [place]Comment on above:Performed By: #### [id number] #### [facility] ([facility]) [address] [place], [place] [address]Yzhcwyp [Mass/Vol]9.4 mg/dLNormal8.6-10.3UnSelect [facility] Special[facility] - [place] OhioComment on above:Performed By: #### [id number] #### [facility] ([facility]) [address] [place], [place] [address]Mdtdwrkw [Moles/Vol]101 mmol/KScgfpm82-694MpnausibjiSelect Medical Specialty Hospital - Southeast [place]Comment on above:Performed By: #### [id number] #### [facility] ([facility]) [address] [place], [place] [address]RC3 [Moles/Vol]34 mmol/JDvod36-48WvzujjqmwrSelect Medical Specialty Hospital - Southeast OhioComment on above:Performed By: #### [id number] #### [facility] ([facility]) [address] [place] [id number] [Mass/Vol]0.67 mg/dLLow0.70-1.30UnSelect Medical Specialty Hospital - [place] OhioComment on above:Performed By: #### [id number] #### [facility] ([facility]) [address] [place], [place] [address]YJJEOSHFBH FILTRATION RATE ML/MIN/1.73 SQ M.FWOGEUEAT90.6 mL/min/1.73m*2Normal>60.0UnSelect [facility] Special[facility] - [place] OhioComment on above: Result Comment: [facility]???s estimated glomerular filtration rate (eGFR) will no [...] potential consequences that do not disproportionately affect anyone group of individuals.Performed By: #### [id number] #### [facility] ([facility]) [address] [place] [id number] [Mass/Vol]90 mg/hCTjmabm76-120CljcnfhjkaSelect Medical Specialty Hospital - Southeast OhioComment on above:Performed By: #### [id number] #### [facility] ([facility]) [address] [place] [address]Wdvgggpqn [Moles/Vol]4.8 mmol/LNormal3.5-5.1UnSelect [facility] Special[facility] Hospital - [place] OhioComment on above:Performed By: #### [id number] #### [facility] ([facility]) [address] [place] [id number] [Mass/Vol]6.5 g/dLNormal6.0-8.3UnSelect [facility] Special[facility] - [place] OhioComment on above:Performed By: #### [id number] #### [facility] ([facility]) [address] [place] [address]Ryrtot [Moles/Vol]136 mmol/ZHlkibl816-160OsfkinaugoSelect Medical Specialty Hospital - Southeast OhioComment on above:Performed By: #### [id number] #### [facility] ([facility]) [address] [place], [place] [address]Eacf nitrogen [Mass/Vol]42 mg/dLHigh7-25UnSelect Medical Specialty Hospital - [place] OhioComment on above:Performed By: #### [id number] #### [facility] ([facility]) [address] [place], [place] [address]OHPC NITROGEN/CREATININE (MASS RATIO) IN SER/PLAS62.7Normal [facility] CenterComment on above:Performed By: #### [id number] #### [facility] ([facility]) [address] [place] [address]MOCZXKUEFmi 81-01-5415Eeppetxcf [Mass/Vol]2.0 mg/dLNormal1.9-2.7 [facility] CenterComment on above:Performed By: #### [id number] #### [facility] ([facility]) [address] [place], [place] [address]HKBRHNRNIFxs 07-16-8140Epprvgwrg [Mass/Vol]3.4 mg/dLNormal 2.5-5.0UnSelect Medical Specialty Hospital - [place] OhioComment on above:Performed By: #### [id number] #### [facility] ([facility]) [address] [place], [place] [address]HNLTL METABOLIC PANELon 25-99-7867Ugfyp gap [Moles/Vol]8 mmol/L Normal7-20UnSelect Medical Specialty Hospital - [place] OhioComment on above:Performed By: #### [id number] #### [facility] ([facility]) [address] [place], [place] [address]Erpkpdg [Mass/Vol]9.4 mg/dLNormal8.6-10.3UnSelect Medical Specialty Hospital - [place] OhioComment on above:Performed By: #### [id number] #### [facility] ([facility]) [address] [place], [place] [address]Tfofozun [Moles/Vol]98 mmol/WNuvzfv14-966FreuupqqhpSelect Medical Specialty Hospital - Southeast OhioComment on above:Performed By: #### [id number] #### [facility] ([facility]) [address] [place], [place] [address]OO1 [Moles/Vol]34 mmol/APfnu85-54VmblawqyanSelect Medical Specialty Hospital - Southeast OhioComment on above:Performed By: #### [id number] #### [facility] ([facility]) [address] [place], [place] [address]Sojoxbukvu [Mass/Vol]0.96 mg/dLNormal0.70-1.30UnSelect Medical Specialty Hospital - [place] OhioComment on above:Performed By: #### [id number] #### [facility] ([facility]) [address] [place], [place] [address]HYHBNLJVKV FILTRATION RATE ML/MIN/1.73 SQ M.JQQKXVZAF32.4 mL/min/1.73m*2Normal>60.0UnSelect Medical Specialty Hospital - Southeast OhioComment on above: Result Comment: [facility]???s estimated glomerular filtration rate (eGFR) will no [...] potential consequences that do not disproportionately affect anyone group of individuals.Performed By: #### [id number] #### [facility] ([facility]) [address] [place], [place] [address]Gjrpygy [Mass/Vol]97 mg/tKOrqmyo84-823SondlisnvkSelect Medical Specialty Hospital - Southeast OhioComment on above:Performed By: #### [id number] #### [facility] ([facility]) [address] [place], [place] [address]Bnddvxthv [Moles/Vol]4.6 mmol/LNormal3.5-5.1UnSelect Medical Specialty Hospital - [place] OhioComment on above:Performed By: #### [id number] #### [facility] ([facility]) [address] [place] [id number] [Moles/Vol]135 mmol/XUxv195-638HrvilfnierSelect Medical Specialty Hospital - Southeast OhioComment on above:Performed By: #### [id number] #### [facility] ([facility]) [address] [place], [place] [address]Hqto nitrogen [Mass/Vol]52 mg/dLHigh7-25UnSelect Medical Specialty Hospital - [place] OhioComment on above:Performed By: #### [id number] #### [facility] ([facility]) [address] [place], [place] [address]RENP NITROGEN/CREATININE (MASS RATIO) IN SER/PLAS54.2Normal [facility] Medical CenterComment on above:Performed By: #### [id number] #### [facility] ([facility]) [address] [place], [place] [address]HBGDTDUATsj 28-63-0896Ukbqpxqki [Mass/Vol]2.2 mg/dLNormal1.9-2.7 [facility] CenterComment on above:Performed By: #### [id number] #### [facility] ([facility]) [address] [place], [place] [address]GSWep 80-97-9739Erwzbrqijfl distribution width (RBC) [Ratio]15.9 %High11.5-15.0UnSelect Medical Specialty Hospital - Southeast OhioComment on above:Performed By: #### [id number] #### [facility] ([facility]) [address] [place], [place] [address]NDXHJKUOIZG MEAN CORPUSCULAR HEMOGLOBIN CONCENTRATION (G/DL) BY ABBJSMEAS00.2 g/dLLow32.0-35.0UnSelect Medical Specialty Hospital - Southeast OhioComment on above:Performed By: #### [id number] #### [facility] ([facility]) [address] [place], [place] [address]Nxicotqfzz (Bld) [Volume fraction]28.1 %Low39.0-55.0UnSelect Medical Specialty Hospital - Southeast OhioComment on above:Performed By: #### [id number] #### [facility] ([facility]) [address] [place] [id number] (Bld) [Mass/Vol]8.5 g/dLLow13.0-17.0UnSelect Medical Specialty Hospital - Southeast OhioComment on above:Performed By: #### [id number] #### [facility] ([facility]) [address] [place] [id number] (RBC) [Entitic mass]30.5 zuEcmito52.0-33.0Un[facility] - [place]Comment on above:Performed By: #### [id number] #### [facility] ([facility]) [address] [id number] (RBC) [Entitic vol]100.7 nVVqgm32.0-98.0Un[facility] - [place]Comment on above:Performed By: #### [id number] #### [facility] ([facility]) [address] [place] [id number] (10*3/UL) IN BLOOD AUTOMATED [id number] 10*3/uLNormal 150-400Un[facility] - [facility] [place]Comment on above:Performed By: #### [id number] #### [facility] ([facility]) [address] [place] [id number] (Bld) [#/Vol]2.79 10*6/uLLow4.20-5.70Un[facility] [place]Comment on above:Performed By: #### [id number] #### [facility] ([facility]) [address] [id number] (Bld) [#/Vol]7.91 10*3/uLNormal4.00-10.60Un[facility] - [facility] [place]Comment on above:Performed By: #### [id number] #### [facility] ([facility]) [address] [place], [place] [id number] METABOLIC PANELon 47-19-0094Bdrosyt [Mass/Vol]3.1 g/dLLow3.5-5.7UnSelect Medical Specialty Hospital - Southeast OhioComment on above:Performed By: #### [id number] #### [facility] ([facility]) [address] [place], [place] [address]ZYK [Catalytic activity/Vol]108 U/BMlpk25-559VjwngqtztgSelect Medical Specialty Hospital - Southeast OhioComment on above:Performed By: #### [id number] #### [facility] ([facility]) [address] [place], [place] [address]YMZ [Catalytic activity/Vol]15 U/LNormal7-52UnSelect Medical Specialty Hospital - Southeast OhioComment on above:Performed By: #### [id number] #### [facility] ([facility]) [address] [place], [place] [address]Imklz gap [Moles/Vol]7 mmol/LNormal7-20UnSelect Medical Specialty Hospital - Southeast OhioComment on above:Performed By: #### [id number] #### [facility] ([facility]) [address] [place], [place] [address]LVL [Catalytic activity/Vol]21 U/OPtxqwv14-77WacaumqvacSelect Medical Specialty Hospital - Southeast OhioComment on above:Performed By: #### [id number] #### [facility] ([facility]) [address] [place], [place] [address]Gxsfxsryg [Mass/Vol]0.2 mg/dLLow0.3-1.0UnSelect Medical Specialty Hospital - Southeast OhioComment on above:Performed By: #### [id number] #### [facility] ([facility]) [address] [place], [place] [address]Ftucxzn [Mass/Vol]9.5 mg/dLNormal8.6-10.3UnSelect Medical Specialty Hospital - Southeast OhioComment on above:Performed By: #### [id number] #### [facility] ([facility]) [address] [place], [place] [address]Rqvosdjm [Moles/Vol]101 mmol/ABczqml63-681Avayxxenxl of Rojas Medical CenterComment on above:Performed By: #### [id number] #### [facility] ([facility]) [address] [place] [id number] [Moles/Vol]34 mmol/XHqcv73-85GnsaigjmgvSelect Medical Specialty Hospital - Southeast OhioComment on above:Performed By: #### [id number] #### [facility] ([facility]) [address] [place] [id number] [Mass/Vol]0.99 mg/dLNormal0.70-1.30UnSelect Medical Specialty Hospital - Southeast OhioComment on above:Performed By: #### [id number] #### [facility] ([facility]) [address] [place] [id number] FILTRATION RATE ML/MIN/1.73 SQ M.EENDRSLGA56.6 mL/min/1.73m*2Normal>60.0UnSelect Medical Specialty Hospital - Southeast OhioComment on above: Result Comment: [facility]???s estimated glomerular filtration rate (eGFR) will no [...] potential consequences that do not disproportionately affect anyone group of individuals.Performed By: #### [id number] #### [facility] ([facility]) [address] [place] [id number] [Mass/Vol]105 mg/wQDpel30-404BajbycvyejSelect Medical Specialty Hospital - Southeast OhioComment on above:Performed By: #### [id number] #### [facility] ([facility]) [address] [place] [id number] [Moles/Vol]4.6 mmol/LNormal3.5-5.1UnSelect Medical Specialty Hospital - Southeast OhioComment on above:Performed By: #### [id number] #### [facility] ([facility]) [address] [place] [id number] [Mass/Vol]6.4 g/dLNormal6.0-8.3UnSelect Medical Specialty Hospital - Southeast OhioComment on above:Performed By: #### [id number] #### [facility] ([facility]) [address] [place] [address]Vmorzx [Moles/Vol]137 mmol/KWkaljp873-074VworpuhliaSelect Medical Specialty Hospital - Southeast OhioComment on above:Performed By: #### [id number] #### [facility] ([facility]) [address] [place] [id number] nitrogen [Mass/Vol]45 mg/dLHigh7-25UnSelect Medical Specialty Hospital - Southeast OhioComment on above:Performed By: #### [id number] #### [facility] ([facility]) [address] [place] [id number] NITROGEN/CREATININE (MASS RATIO) IN SER/PLAS45.5Normal [facility] CenterComment on above:Performed By: #### [id number] #### [facility] ([facility]) [address] [place] [id number] 06-00-9422Wtxclvmpm [Mass/Vol]2.1 mg/dLNormal1.9-2.7 [facility] CenterComment on above:Performed By: #### [id number] #### [facility] ([facility]) [address] [place] [id number] 11-49-4563Cmbwvgonx [Mass/Vol]3.2 mg/dLNormal 2.5-5.0UnSelect Medical Specialty Hospital - Southeast OhioComment on above:Performed By: #### [id number] #### [facility] ([facility]) [address] [place] [id number] METABOLIC PANELon 81-74-3781Ykkxq gap [Moles/Vol]9 mmol/L Normal7-20UnSelect Medical Specialty Hospital - Southeast OhioComment on above:Performed By: #### [id number] #### [facility] ([facility]) [address] [place] [id number] [Mass/Vol]9.2 mg/dLNormal8.6-10.3UnSelect Medical Specialty Hospital - Southeast OhioComment on above:Performed By: #### [id number] #### [facility] ([facility]) [address] [place] [id number] [Moles/Vol]101 mmol/TLbgkot28-381GamkgibewySelect Medical Specialty Hospital - Southeast OhioComment on above:Performed By: #### [id number] #### [facility] ([facility]) [address] [place] [id number] [Moles/Vol]32 mmol/GBzqg06-88CsdntigbvfSelect Medical Specialty Hospital - Southeast OhioComment on above:Performed By: #### [id number] #### [facility] ([facility]) [address] [place] [id number] [Mass/Vol]0.72 mg/dLNormal0.70-1.30UnSelect Medical Specialty Hospital - Southeast OhioComment on above:Performed By: #### [id number] #### [facility] ([facility]) [address] [place] [id number] FILTRATION RATE ML/MIN/1.73 SQ M.VZXIPGUEP86.7 mL/min/1.73m*2Normal>60.0UnSelect Medical Specialty Hospital - Southeast OhioComment on above: Result Comment: [facility]???s estimated glomerular filtration rate (eGFR) will no [...] potential consequences that do not disproportionately affect anyone group of individuals.Performed By: #### [id number] #### [facility] ([facility]) [address] [place], [place] [id number] [Mass/Vol]120 mg/sSRvqz78-694EvrpvonfiySelect Medical Specialty Hospital - Southeast OhioComment on above:Performed By: #### [id number] #### [facility] ([facility]) [address] [place], [place] [address]Fqcqnllub [Moles/Vol]4.5 mmol/LNormal3.5-5.1UnSelect Medical Specialty Hospital - Southeast OhioComment on above:Performed By: #### [id number] #### [facility] ([facility]) [address] [place], [place] [address]Gzsjeh [Moles/Vol]137 mmol/ELkdzmg258-209CvcddtcqeiSelect Medical Specialty Hospital - Southeast OhioComment on above:Performed By: #### [id number] #### [facility] ([facility]) [address] [place], [place] [address]Uyvn nitrogen [Mass/Vol]39 mg/dLHigh7-25UnSelect Medical Specialty Hospital - Southeast OhioComment on above:Performed By: #### [id number] #### [facility] ([facility]) [address] [place], [place] [address]SECZ NITROGEN/CREATININE (MASS RATIO) IN SER/PLAS54.2Normal [facility] CenterComment on above:Performed By: #### [id number] #### [facility] ([facility]) [address] [place], [place] [address]UKO WITH AUTO DIFFERENTIALon 00-04-7441Hdtjdkzic (Bld) [#/Vol] 0.02 10*3/uLNormal0.00-0.20UnSelect Medical Specialty Hospital - Southeast OhioComment on above: Performed By: #### [id number] #### [facility] ([facility]) [address] [place], [place] [address]Uyloxjgtn/100 WBC (Bld)0.3 %Normal0.0-1.0UnSelect Medical Specialty Hospital - Southeast OhioComment on above:Performed By: #### [id number] #### [facility] ([facility]) [address] [place], [place] [address]Pkttuqgeswo (Bld) [#/Vol]0.80 10*3/uLHigh0.00-0.50UnSelect Medical Specialty Hospital - Southeast OhioComment on above:Performed By: #### [id number] #### [facility] ([facility] [address] [place] [id number]/100 WBC (Bld)12.1 %High0.0-6.0UnSelect Medical Specialty Hospital - Southeast OhioComment on above:Performed By: #### [id number] #### [facility] ([facility]) [address] [place], [place] [id number] distribution width (RBC) [Ratio]15.8 %High11.5-15.0 [facility] CenterComment on above:Performed By: #### [id number] #### [facility] ([facility]) [address] [place], [place] [id number] MEAN CORPUSCULAR HEMOGLOBIN CONCENTRATION (G/DL) BY RQFZXYUXB11.1 g/dLLow32.0-35.0UnSelect Medical Specialty Hospital - Southeast OhioComment on above:Performed By: #### [id number] #### [facility] ([facility]) [address] [place], [place] [address]Bsxdshlabx (Bld) [Volume fraction]27.3 %Low39.0-55.0UnSelect Medical Specialty Hospital - Southeast OhioComment on above:Performed By: #### [id number] #### [facility] ([facility]) [address] [place], [place] [id number] (Bld) [Mass/Vol]8.5 g/dLLow13.0-17.0UnSelect Medical Specialty Hospital - Southeast OhioComment on above:Performed By: #### [id number] #### [facility] ([facility]) [address] [place], [place] [address]Adpdzuhw granulocytes (Bld) [#/Vol]0.02 10*3/uLNormal0.00-0.20 [facility] CenterComment on above:Performed By: #### [id number] #### [facility] ([facility]) [address] [place], [place] [id number] granulocytes/100 WBC (Bld)0.3 %Normal0.0-1.0UnSelect Medical Specialty Hospital - Southeast OhioComment on above:Performed By: #### [id number] #### [facility] ([facility]) [address] [facility] [place], [place] [address]Eathztioxiy (Bld) [#/Vol]0.89 10*3/uLLow1.20-4.00UnSelect Medical Specialty Hospital - Southeast OhioComment on above:Performed By: #### [id number] #### [facility] ([facility]) [address] [facility], [place] [address]Fhrfawcugml/100 WBC (Bld)13.4 %Low20.0-45.0UnSelect Medical Specialty Hospital - Southeast OhioComment on above:Performed By: #### [id number] #### [facility] ([facility]) [address] [facility] [place], [place] [address]FQC (RBC) [Entitic mass]30.5 deHcebtj26.0-33.0UnSelect Medical Specialty Hospital - Southeast OhioComment on above:Performed By: #### [id number] #### [facility] ([facility]) [address] [place], [place] [address]FYF (RBC) [Entitic vol]97.8 bQGwsjty67.0-98.0UnSelect Medical Specialty Hospital - Southeast OhioComment on above:Performed By: #### [id number] #### [facility] ([facility]) [address] [facility] [place] [place], [place] [address]Fwqdtncty (Bld) [#/Vol]0.53 10*3/uLNormal0.10-1.00UnSelect Medical Specialty Hospital - Southeast OhioComment on above:Performed By: #### [id number] #### [facility] ([facility]) [address] [place], [place] [address]Hignivibt/100 WBC (Bld)8.0 %Normal5.0-12.0UnSelect Medical Specialty Hospital - Southeast OhioComment on above:Performed By: #### [id number] #### [facility] ([facility]) [address] [place], [place] [address]Lyiuemnzmel (Bld) [#/Vol]4.37 10*3/uLNormal1.60-7.60UnSelect Medical Specialty Hospital - Southeast OhioComment on above:Performed By: #### [id number] #### [facility] ([facility]) [address] [place] [id number]/100 WBC (Bld)65.9 %Vmhgei02.0-72.0UnSelect Medical Specialty Hospital - Southeast OhioComment on above:Performed By: #### [id number] #### [facility] ([facility]) [address] [place] [id number] (PER 100 WBCS) BY AUTOMATED COUNT0.0 %Mryogq4SkpkjnngalSelect Medical Specialty Hospital - Southeast OhioComment on above:Performed By: #### [id number] #### [facility] ([facility]) [address] [place] [id number] (10*3/UL) IN BLOOD AUTOMATED [id number] 10*3/uLNormal 150-400UnSelect Medical Specialty Hospital - Southeast OhioComment on above:Performed By: #### [id number] #### [facility] ([facility]) [address] [place] [id number] (Bld) [#/Vol]2.79 10*6/uLLow4.20-5.70UnSelect Medical Specialty Hospital - Southeast OhioComment on above:Performed By: #### [id number] #### [facility] ([facility]) [address] [place] [id number] (Bld) [#/Vol]6.63 10*3/uLNormal4.00-10.60UnSelect Medical Specialty Hospital - Southeast OhioComment on above:Performed By: #### [id number] #### [facility] ([facility]) [address] [place] [id number] 58-68-2501Jcutmzjex [Mass/Vol]2.0 mg/dLNormal1.9-2.7 [facility] CenterComment on above:Performed By: #### [id number] #### [facility] ([facility]) [address] [place] [id number] 51-28-6041Likymwbgeej distribution width (RBC) [Ratio]15.9 %High11.5-15.0UnSelect Medical Specialty Hospital - Southeast OhioComment on above:Performed By: #### [id number] #### [facility] ([facility]) [address] [place] [id number] MEAN CORPUSCULAR HEMOGLOBIN CONCENTRATION (G/DL) BY OEFUZWGPX38.0 g/dLLow32.0-35.0UnSelect Medical Specialty Hospital - Southeast OhioComment on above:Performed By: #### [id number] #### [facility] ([facility]) [address] [place] [id number] (Bld) [Volume fraction]26.8 %Low39.0-55.0UnSelect Medical Specialty Hospital - Southeast OhioComment on above:Performed By: #### [id number] #### [facility] ([facility]) [address] [place], [place] [id number] (Bld) [Mass/Vol]8.3 g/dLLow13.0-17.0UnSelect [facility] Specialty Hospital - Southeast OhioComment on above:Performed By: #### [id number] #### [facility] ([facility]) [address] [place] [id number] (RBC) [Entitic mass]31.1 riOoqyoc52.0-33.0UnSelect Medical Specialty Hospital - Southeast OhioComment on above:Performed By: #### [id number] #### [facility] ([facility]) [address] [place] [id number] (RBC) [Entitic vol]100.4 wPLgxp38.0-98.0UnSelect [facility] Special[facility] Hospital - Southeast OhioComment on above:Performed By: #### [id number] #### [facility] ([facility]) [address] [place] [id number] (10*3/UL) IN BLOOD AUTOMATED [id number] 10*3/uLNormal 150-400UnSelect Medical Specialty Hospital - Southeast OhioComment on above:Performed By: #### [id number] #### [facility] ([facility]) [address] [place], [place] [address]KDV (Bld) [#/Vol]2.67 10*6/uLLow4.20-5.70UnSelect Medical Specialty Hospital - Southeast OhioComment on above:Performed By: #### [id number] #### [facility] ([facility]) [address] [id number] (Bld) [#/Vol]7.90 10*3/uLNormal4.00-10.60UnSelect Medical Specialty Hospital - Southeast OhioComment on above:Performed By: #### [id number] #### [facility] ([facility]) [address] [address]OAFKXPRBFJJAL METABOLIC PANELon 44-18-2414Teaitca [Mass/Vol]2.8 g/dLLow3.5-5.7UnSelect Medical Specialty Hospital - Southeast OhioComment on above:Performed By: #### [id number] #### [facility] ([facility]) [address] [place] [address]HKF [Catalytic activity/Vol]107 U/SUirx47-144KhrhigvihdSelect Medical Specialty Hospital - Southeast OhioComment on above:Performed By: #### [id number] #### [facility] ([facility]) [address] [place] [address]PHR [Catalytic activity/Vol]12 U/LNormal7-52UnSelect Medical Specialty Hospital - Southeast OhioComment on above:Performed By: #### [id number] #### [facility] ([facility]) [address] [address]Ctanc gap [Moles/Vol]6 mmol/LLow7-20UnSelect [facility] Specialty Hospital - Southeast OhioComment on above:Performed By: #### [id number] #### [facility] ([facility]) [address] [place] [address]LFL [Catalytic activity/Vol]18 U/GYjsmii66-80BbjcuiuvhpSelect Medical Specialty Hospital - Southeast OhioComment on above:Performed By: #### [id number] #### [facility] ([facility]) [address] [place] [address]Jprpksltk [Mass/Vol]0.3 mg/dLNormal0.3-1.0UnSelect Medical Specialty Hospital - Southeast OhioComment on above:Performed By: #### [id number] #### [facility] ([facility]) [address] [place] [id number] [Mass/Vol]9.0 mg/dLNormal8.6-10.3UnSelect Medical Specialty Hospital - Southeast OhioComment on above:Performed By: #### [id number] #### [facility] ([facility]) [address] [place] [id number] [Moles/Vol]100 mmol/KSahuir15-243PyibcktqjsSelect Medical Specialty Hospital - Southeast OhioComment on above:Performed By: #### [id number] #### [facility] ([facility]) [address] [place] [id number] [Moles/Vol]33 mmol/JSsjb18-34SeqdvotwfuSelect Medical Specialty Hospital - Southeast OhioComment on above:Performed By: #### [id number] #### [facility] ([facility]) [address] [place] [id number] [Mass/Vol]0.99 mg/dLNormal0.70-1.30UnSelect Medical Specialty Hospital - Southeast OhioComment on above:Performed By: #### [id number] #### [facility] ([facility]) [address] [place] [id number] FILTRATION RATE ML/MIN/1.73 SQ M.BMCTEYLWV50.6 mL/min/1.73m*2Normal>60.0UnSelect [facility] Specialty Hospital - Southeast OhioComment on above: Result Comment: [facility]???s estimated glomerular filtration rate (eGFR) will no [...] potential consequences that do not disproportionately affect anyone group of individuals.Performed By: #### [id number] #### [facility] ([facility]) [address] [place] [id number] [Mass/Vol]96 mg/gOPimfhd69-723XlfptdecyzSelect Medical Specialty Hospital - Southeast OhioComment on above:Performed By: #### [id number] #### [facility] ([facility]) [address] [place] [id number] [Moles/Vol]4.4 mmol/LNormal3.5-5.1UnSelect Medical Special[facility] - Southeast OhioComment on above:Performed By: #### [id number] #### [facility] ([facility]) [address] [place] [id number] [Mass/Vol]5.8 g/dLLow6.0-8.3UnSelect [facility] Special[facility] - Southeast OhioComment on above:Performed By: #### [id number] #### [facility] ([facility]) [address] [place] [id number] [Moles/Vol]135 mmol/VNav923-581HphpwqwrfeSelect Medical Specialty Hospital - Southeast OhioComment on above:Performed By: #### [id number] #### [facility] ([facility]) [address] [place] [id number] nitrogen [Mass/Vol]39 mg/dLHigh7-25UnSelect Medical Specialty Hospital - Southeast OhioComment on above:Performed By: #### [id number] #### [facility] ([facility]) [address] [place] [id number] NITROGEN/CREATININE (MASS RATIO) IN SER/PLAS39.4Normal [facility] CenterComment on above:Performed By: #### [id number] #### [facility] ([facility]) [address] [place] [id number] 68-33-5382Ugmsiahaj [Mass/Vol]2.0 mg/dLNormal1.9-2.7 [facility] CenterComment on above:Performed By: #### [id number] #### [facility] ([facility]) [address] [place] [id number] 99-28-0156Aduyoufvb [Mass/Vol]3.2 mg/dLNormal 2.5-5.0UnSelect Medical Specialty Hospital - Southeast OhioComment on above:Performed By: #### [id number] #### [facility] ([facility]) [address] [id number] 54-31-1703AEHMFJZ?UNKNOWNNormalUniversity of Gonzales Memorial HospitalComment on above:Performed By: #### [id number] #### [facility] ([facility]) [address] [place] [id number] [Mass/Vol]126 mg/kGSjhvha61-367UmtaprbpxzSelect Medical Specialty Hospital - Southeast OhioComment on above:Result Comment: TRIGLYCERIDE REFERENCE RANGE: 20 YEARS AND OLDER CARDIOVASCULAR RISK LESS THAN 150 mg/dL LOW RISK 150 TO 199 mg/dL BORDERLINE RISK 200 mg/dL AND GREATER HIGH RISKPerformed By: #### [id number] #### [facility] ([facility]) [address] [place] [id number] 08-50-5570Vkurwwpkgln distribution width (RBC) [Ratio]15.6 %High11.5-15.0UnSelect Medical Specialty Hospital - Southeast OhioComment on above:Performed By: #### [id number] #### [facility] ([facility]) [address] [place] [id number] MEAN CORPUSCULAR HEMOGLOBIN CONCENTRATION (G/DL) BY YYPZXUXXM23.3 g/dLLow32.0-35.0UnSelect [facility] Special[facility] Hospital - Southeast OhioComment on above:Performed By: #### [id number] #### [facility] ([facility]) [address] [place] [id number] (Bld) [Volume fraction]28.8 %Low39.0-55.0UnSelect Medical Specialty Hospital - Southeast OhioComment on above:Performed By: #### [id number] #### [facility] ([facility]) [address] [place] [id number] (Bld) [Mass/Vol]9.0 g/dLLow13.0-17.0UnSelect Medical Specialty Hospital - Southeast OhioComment on above:Performed By: #### [id number] #### [facility] ([facility]) [address] [place] [id number] (RBC) [Entitic mass]30.4 ojAixjnd30.0-33.0UnSelect Medical Specialty Hospital - Southeast OhioComment on above:Performed By: #### [id number] #### [facility] ([facility]) [address] [place] [id number] (RBC) [Entitic vol]97.3 nDDqmcme70.0-98.0UnSelect [facility] Specialty Hospital - Southeast OhioComment on above:Performed By: #### [id number] #### [facility] ([facility]) [address] [place] [id number] (10*3/UL) IN BLOOD AUTOMATED [id number] 10*3/uLNormal 150-400UnSelect Medical Specialty Hospital - Southeast OhioComment on above:Performed By: #### [id number] #### [facility] ([facility]) [address] [place], [place] [address]NAH (Bld) [#/Vol]2.96 10*6/uLLow4.20-5.70UnSelect [facility] - [facility] OhioComment on above:Performed By: #### [id number] #### [facility] ([facility]) [address] [place] [id number] (Bld) [#/Vol]8.30 10*3/uLNormal4.00-10.60UnSelect [facility] - [facility] [place]Comment on above:Performed By: #### [id number] #### [facility] ([facility]) [address] [place] [id number] METABOLIC PANELon [id number] [Mass/Vol]2.9 g/dLLow3.5-5.7UnSelect [facility] OhioComment on above:Performed By: #### [id number] #### [facility] ([facility]) [address] [place], [place] [address]DIC [Catalytic activity/Vol]128 U/MZbwy54-492GlnelspswwSelect Medical Specialty Hospital - Southeast [place]Comment on above:Performed By: #### [id number] #### [facility] ([facility]) [address] [place], [place] [address]TZR [Catalytic activity/Vol]14 U/LNormal7-52UnSelect [facility] - [facility] OhioComment on above:Performed By: #### [id number] #### [facility] ([facility]) [address] [place], [place] [address]Esmgo gap [Moles/Vol]6 mmol/LLow7-20UnSelect Medical Specialty Hospital - Southeast OhioComment on above:Performed By: #### [id number] #### [facility] ([facility]) [address] [place], [place] [address]UJQ [Catalytic activity/Vol]13 U/WTeqktu38-20CtyzirivgfSelect Medical Specialty Hospital - Southeast OhioComment on above:Performed By: #### [id number] #### [facility] ([facility]) [address] [place], [place] [address]Slrukhtho [Mass/Vol]0.3 mg/dLNormal0.3-1.0UnSelect Medical Specialty Hospital - Southeast OhioComment on above:Performed By: #### [id number] #### [facility] ([facility]) [address] [place], [place] [address]Kyxkfmj [Mass/Vol]8.8 mg/dLNormal8.6-10.3UnSelect Medical Specialty Hospital - Southeast OhioComment on above:Performed By: #### [id number] #### [facility] ([facility]) [address] [place], [place] [address]Etyzuggf [Moles/Vol]101 mmol/SLbithi43-107TkhzxmnvgnSelect Medical Specialty Hospital - Southeast OhioComment on above:Performed By: #### [id number] #### [facility] ([facility]) [address] [place], [place] [address]AY8 [Moles/Vol]34 mmol/WLmyy56-59YofcmeirhbSelect Medical Specialty Hospital - Southeast OhioComment on above:Performed By: #### [id number] #### [facility] ([facility]) [address] [place] [id number] [Mass/Vol]0.51 mg/dLLow0.70-1.30UnSelect Medical Specialty Hospital - Southeast OhioComment on above:Performed By: #### [id number] #### [facility] ([facility]) [address] [place] [id number] FILTRATION RATE ML/MIN/1.73 SQ M.IOYRIPGSP082.6 mL/min/1.73m*2Normal>60.0UnSelect Medical Specialty Hospital - Southeast OhioComment on above: Result Comment: [facility]???s estimated glomerular filtration rate (eGFR) will no [...] potential consequences that do not disproportionately affect anyone group of individuals.Performed By: #### [id number] #### [facility] ([facility]) [address] [place] [id number] [Mass/Vol]98 mg/jLIbgnzj47-259VhevtjwqasSelect Medical Specialty Hospital - Southeast OhioComment on above:Performed By: #### [id number] #### [facility] ([facility]) [address] [place] [id number] [Moles/Vol]3.4 mmol/LLow3.5-5.1UnSelect Medical Specialty Hospital - Southeast OhioComment on above:Performed By: #### [id number] #### [facility] ([facility]) [address] [place] [id number] [Mass/Vol]6.0 g/dLNormal6.0-8.3UnSelect Medical Specialty Hospital - Southeast OhioComment on above:Performed By: #### [id number] #### [facility] ([facility]) [address] [place] [id number] [Moles/Vol]138 mmol/GPpvdqj066-370ZjwdmtamtkSelect Medical Specialty Hospital - Southeast OhioComment on above:Performed By: #### [id number] #### [facility] ([facility]) [address] [place] [id number] nitrogen [Mass/Vol]20 mg/dLNormal7-25UnSelect Medical Specialty Hospital - Southeast OhioComment on above:Performed By: #### [id number] #### [facility] ([facility]) [address] [place] [id number] NITROGEN/CREATININE (MASS RATIO) IN SER/PLAS39.2Normal [facility] CenterComment on above:Performed By: #### [id number] #### [facility] ([facility]) [address] [place] [id number] [id number] [Mass/Vol]1.9 mg/dLNormal1.9-2.7 [facility] CenterComment on above:Performed By: #### [id number] #### [facility] ([facility]) [address] [place] [id number] 24-98-1039Ghoyhxuhn [Mass/Vol]3.1 mg/dLNormal 2.5-5.0UnSelect Medical Specialty Hospital - Southeast OhioComment on above:Performed By: #### [id number] #### [facility] ([facility]) [address] [place] [id number] METABOLIC PANELon 56-14-4490Yehqt gap [Moles/Vol]8 mmol/L Normal7-20UnSelect Medical Specialty Hospital - Southeast OhioComment on above:Performed By: #### [id number] #### [facility] ([facility]) [address] [place] [id number] [Mass/Vol]8.9 mg/dLNormal8.6-10.3UnSelect Medical Specialty Hospital - Southeast OhioComment on above:Performed By: #### [id number] #### [facility] ([facility]) [address] [place] [id number] [Moles/Vol]102 mmol/EIrrbdj72-008OnsmuouvuxSelect Medical Specialty Hospital - Southeast OhioComment on above:Performed By: #### [id number] #### [facility] ([facility]) [address] [place] [id number] [Moles/Vol]32 mmol/TXfvb04-50ZxsnqdjrdqSelect Medical Specialty Hospital - Southeast OhioComment on above:Performed By: #### [id number] #### [facility] ([facility]) [address] [place] [id number] [Mass/Vol]0.47 mg/dLLow0.70-1.30UnSelect Medical Specialty Hospital - Southeast OhioComment on above:Performed By: #### [id number] #### [facility] ([facility]) [address] [place] [id number] FILTRATION RATE ML/MIN/1.73 SQ M.RZORLDSVK050.1 mL/min/1.73m*2Normal>60.0UnSelect Medical Specialty Hospital - Southeast OhioComment on above: Result Comment: [facility]???s estimated glomerular filtration rate (eGFR) will no [...] potential consequences that do not disproportionately affect anyone group of individuals.Performed By: #### [id number] #### [facility] ([facility]) [address] [place] [id number] [Mass/Vol]88 mg/pPLfomdx23-464HyaqvpzntcSelect Medical Specialty Hospital - Southeast OhioComment on above:Performed By: #### [id number] #### [facility] ([facility]) [address] [place] [id number] [Moles/Vol]3.8 mmol/LNormal3.5-5.1UnSelect Medical Specialty Hospital - Southeast OhioComment on above:Performed By: #### [id number] #### [facility] ([facility]) [address] [place] [id number] [Moles/Vol]138 mmol/XQyvbur391-790OjhqvugiijSelect Medical Specialty Hospital - Southeast OhioComment on above:Performed By: #### [id number] #### [facility] ([facility]) [address] [place], [place] [id number] nitrogen [Mass/Vol]17 mg/dLNormal7-25UnSelect Medical Specialty Hospital - Southeast OhioComment on above:Performed By: #### [id number] #### [facility] ([facility]) [address] [place], [place] [id number] NITROGEN/CREATININE (MASS RATIO) IN SER/PLAS36.2Normal [facility] Medical CenterComment on above:Performed By: #### [id number] #### [facility] ([facility]) [address] [facility] [place]LLTob[facility] [place], [place] [address]MFJ WITH AUTO DIFFERENTIALon 6[address]Bcwalywbwxn distribution width (RBC) [Ratio]15.7 %High11.5-15.0UnSelect Medical Specialty Hospital - Southeast OhioComment on above:Performed By: #### [id number] #### [facility] ([facility]) [address] [place], [place] [id number] MEAN CORPUSCULAR HEMOGLOBIN CONCENTRATION (G/DL) BY QFDIEOTMW64.6 g/dLLow32.0-35.0UnSelect Medical Specialty Hospital - Southeast OhioComment on above:Performed By: #### [id number] #### [facility] ([facility]) [address] [place], [place] [id number] (Bld) [Volume fraction]30.7 %Low39.0-55.0UnSelect [facility] Specialty Hospital - Southeast OhioComment on above:Performed By: #### [id number] #### [facility] ([facility]) [address] [place], [place] [id number] (Bld) [Mass/Vol]9.4 g/dLLow13.0-17.0UnSelect [facility] Specialty Hospital - Southeast OhioComment on above:Performed By: #### [id number] #### [facility] ([facility]) [address] [place] [id number] PLATELET FRACTION %4.1 %Normal0.8-6.3UnSelect [facility] Specialty Hospital - Southeast OhioComment on above:Performed By: #### [id number] #### [facility] ([facility]) [address] [place] [id number] (RBC) [Entitic mass]30.6 pjMuqizn91.0-33.0UnSelect [facility] Specialty Hospital - Southeast OhioComment on above:Performed By: #### [id number] #### [facility] ([facility]) [address] [place] [id number] (RBC) [Entitic vol]100.0 wYLpxs17.0-98.0UnSelect Medical Specialty Hospital - Southeast OhioComment on above:Performed By: #### [id number] #### [facility] ([facility]) [address] [place], [place] [address]RZJH (PER 100 WBCS) BY AUTOMATED COUNT0.0 %Fjmtfm8CcyivhopuvSelect Medical Specialty Hospital - Southeast OhioComment on above:Performed By: #### [id number] #### [facility] ([facility]) [address] [place], [place] [address]EVMRYLDIM (10*3/UL) IN BLOOD AUTOMATED [id number] 10*3/uLNormal 150-400UnSelect Medical Specialty Hospital - Southeast OhioComment on above:Performed By: #### [id number] #### [facility] ([facility]) [address] [place] [id number] (Bld) [#/Vol]3.07 10*6/uLLow4.20-5.70UnSelect Medical Specialty Hospital - Southeast OhioComment on above:Performed By: #### [id number] #### [facility] ([facility]) [address] [place] [id number] (Bld) [#/Vol]7.78 10*3/uLNormal4.00-10.60UnSelect Medical Specialty Hospital - Southeast OhioComment on above:Performed By: #### [id number] #### [facility] ([facility]) [address] [place] [id number] 35-13-2674Cbsnvscbi [Mass/Vol]2.2 mg/dLNormal1.9-2.7 [facility] CenterComment on above:Performed By: #### [id number] #### [facility] ([facility]) [address] [place] [id number] DIFFERENTIALon 35-41-9842QMXSNTISR (10*3/UL) IN BLOOD BY CALCULATION0.03 10*3/uLNormal0.00-0.20UnSelect [facility] Specialty Hospital - Southeast OhioComment on above:Performed By: #### [id number] #### [facility] ([facility]) [address] [place] [id number]/100 LEUKOCYTES IN BLOOD BY AUTOMATED COUNT0.4 %Normal 0.0-1.0UnSelect [facility] Special[facility] Hospital - Southeast OhioComment on above:Performed By: #### [id number] #### [facility] ([facility]) [address] [place] [id number] (10*3/UL) IN BLOOD BY CALCULATION1.29 10*3/uLHigh 0.00-0.50UnSelect Medical Specialty Hospital - Southeast OhioComment on above:Performed By: #### [id number] #### [facility] ([facility]) [address] [place] [id number]/100 LEUKOCYTES IN BLOOD BY AUTOMATED COUNT16.6 %High 0.0-6.0UnSelect Medical Specialty Hospital - Southeast OhioComment on above:Performed By: #### [id number] #### [facility] ([facility]) [address] [place] [id number] GRANULOCYTES (10*3/UL) IN BLOOD BY CALCULATION0.04 10*3/uLNormal0.00-0.20UnSelect [facility] Special[facility] Hospital - Southeast OhioComment on above: Performed By: #### [id number] #### [facility] ([facility]) [address] [place] [id number] GRANULOCYTES/100 LEUKOCYTES IN BLOOD BY AUTOMATED COUNT 0.5 %Normal0.0-1.0UnSelect [facility] Special[facility] Hospital - Southeast OhioComment on above:Performed By: #### [id number] #### [facility] ([facility]) [address] [place] [id number] (10*3/UL) IN BLOOD BY CALCULATION1.13 10*3/uLLow 1.20-4.00UnSelect [facility] Specialty Hospital - Southeast OhioComment on above:Performed By: #### [id number] #### [facility] ([facility]) [address] [place] [id number]/100 LEUKOCYTES IN BLOOD BY AUTOMATED COUNT14.5 %Low 20.0-45.0UnSelect [facility] Special[facility] Hospital - Southeast OhioComment on above:Performed By: #### [id number] #### [facility] ([facility]) [address] [place] [id number] (10*3/UL) IN BLOOD BY CALCUATION0.46 10*3/uLNormal 0.10-1.00UnSelect [facility] Special[facility] Hospital - Southeast OhioComment on above:Performed By: #### [id number] #### [facility] ([facility]) [address] [place] [id number]/100 LEUKOCYTES IN BLOOD BY AUTOMATED COUNT5.9 %Normal 5.0-12.0UnSelect [facility] Special[facility] Hospital - Southeast OhioComment on above:Performed By: #### [id number] #### [facility] ([facility]) [address] [place] [id number] (10*3/UL) IN BLOOD BY CALCULATION4.8 10*3/uLNormal 1.6-7.6UnSelect Medical Specialty Hospital - Southeast OhioComment on above:Performed By: #### [id number] #### [facility] ([facility]) [address] [place] [id number]/100 LEUKOCYTES IN BLOOD BY AUTOMATED COUNT62.1 % Waycbd99.0-72.0UnSelect [facility] Special[facility] Hospital - Southeast OhioComment on above:Performed By: #### [id number] #### [facility] ([facility]) [address] [place] [id number] 08-76-8611Csuabuyfulr distribution width (RBC) [Ratio]15.6 %High11.5-15.0UnSelect Medical Specialty Hospital - Southeast OhioComment on above:Performed By: #### [id number] #### [facility] ([facility]) [address] [place] [id number] MEAN CORPUSCULAR HEMOGLOBIN CONCENTRATION (G/DL) BY PZXLOOZHY87.3 g/dLLow32.0-35.0UnSelect [facility] Specialty Hospital - Southeast OhioComment on above:Performed By: #### [id number] #### [facility] ([facility]) [address] [place] [id number] (Bld) [Volume fraction]26.8 %Low39.0-55.0UnSelect [facility] Specialty Hospital - Southeast OhioComment on above:Performed By: #### [id number] #### [facility] ([facility]) [address] [place] [place], [place] [address]Vdeglgezqc (Bld) [Mass/Vol]8.4 g/dLLow13.0-17.0UnSelect [facility] Special[facility] Hospital - Southeast OhioComment on above:Performed By: #### [id number] #### [facility] ([facility]) [address] [place] [id number] (RBC) [Entitic mass]30.5 nrEakavh02.0-33.0UnSelect [facility] Special[facility] Hospital - Southeast OhioComment on above:Performed By: #### [id number] #### [facility] ([facility]) [address] [place], [place] [address]ZUD (RBC) [Entitic vol]97.5 nBJxpeoj03.0-98.0UnSelect [facility] Special[facility] Hospital - Southeast OhioComment on above:Performed By: #### [id number] #### [facility] ([facility]) [address] [place] [id number] (10*3/UL) IN BLOOD AUTOMATED [id number] 10*3/uLNormal 150-400UnSelect Medical Specialty Hospital - Southeast OhioComment on above:Performed By: #### [id number] #### [facility] ([facility]) [address] [place] [address]DIO (Bld) [#/Vol]2.75 10*6/uLLow4.20-5.70UnSelect [facility] Specialty Hospital - Southeast OhioComment on above:Performed By: #### [id number] #### [facility] ([facility]) [address] [place] [address]IAT (Bld) [#/Vol]7.43 10*3/uLNormal4.00-10.60UnSelect [facility] Special[facility] Hospital - Southeast OhioComment on above:Performed By: #### [id number] #### [facility] ([facility]) [address] [place] [address]KSARPMPMFYYLD METABOLIC PANELon 01-44-5134Zpuzrwj [Mass/Vol]2.7 g/dLLow3.5-5.7UnSelect Medical Specialty Hospital - Southeast OhioComment on above:Performed By: #### [id number] #### [facility] ([facility]) [address] [place] [address]YRZ [Catalytic activity/Vol]110 U/EGauv25-156XkitwjrbvcSelect Medical Specialty Hospital - Southeast OhioComment on above:Performed By: #### [id number] #### [facility] ([facility]) [address] [place] [address]ROZ [Catalytic activity/Vol]13 U/LNormal7-52UnSelect Medical Specialty Hospital - Southeast OhioComment on above:Performed By: #### [id number] #### [facility] ([facility]) [address] [place], [place] [address]Ykjqc gap [Moles/Vol]6 mmol/LLow7-20UnSelect [facility] Special[facility] Hospital - Southeast OhioComment on above:Performed By: #### [id number] #### [facility] ([facility]) [address] [place], [place] [address]AZO [Catalytic activity/Vol]13 U/RNotwht25-75FtzaegqzfeSelect Medical Specialty Hospital - Southeast OhioComment on above:Performed By: #### [id number] #### [facility] ([facility]) [address] [place] [address]Fijzeelat [Mass/Vol]0.3 mg/dLNormal0.3-1.0UnSelect [facility] Special[facility] Hospital - Southeast OhioComment on above:Performed By: #### [id number] #### [facility] ([facility]) [address] [place] [address]Wpcpjtg [Mass/Vol]8.6 mg/dLNormal8.6-10.3UnSelect [facility] Special[facility] Hospital - Southeast OhioComment on above:Performed By: #### [id number] #### [facility] ([facility]) [address] [place] [address]Avmqknon [Moles/Vol]103 mmol/ETfxddd77-845ZvejgqdazwSelect Medical Specialty Hospital - Southeast OhioComment on above:Performed By: #### [id number] #### [facility] ([facility]) [address] [place] [address]QK5 [Moles/Vol]36 mmol/SEmgo53-48BtqauzlxulSelect Medical Specialty Hospital - Southeast OhioComment on above:Performed By: #### [id number] #### [facility] ([facility]) [address] [place] [address]Gozrxdrvhn [Mass/Vol]0.46 mg/dLLow0.70-1.30UnSelect Medical Specialty Hospital - Southeast OhioComment on above:Performed By: #### [id number] #### [facility] ([facility]) [address] [place] [id number] FILTRATION RATE ML/MIN/1.73 SQ M.IFHRPNUJL468.8 mL/min/1.73m*2Normal>60.0UnSelect Medical Specialty Hospital - Southeast OhioComment on above: Result Comment: [facility]???s estimated glomerular filtration rate (eGFR) will no [...] potential consequences that do not disproportionately affect anyone group of individuals.Performed By: #### [id number] #### [facility] ([facility]) [address] [place], [place] [address]Vnswhnk [Mass/Vol]113 mg/aCDakv92-556CuhepeawrySelect Medical Specialty Hospital - Southeast OhioComment on above:Performed By: #### [id number] #### [facility] ([facility]) [address] [place], [place] [id number] [Moles/Vol]3.1 mmol/LLow3.5-5.1UnSelect Medical Specialty Hospital - Southeast OhioComment on above:Performed By: #### [id number] #### [facility] ([facility]) [address] [place], [place] [address]Vosymuy [Mass/Vol]5.5 g/dLLow6.0-8.3UnSelect [facility] Specialty Hospital - Southeast OhioComment on above:Performed By: #### [id number] #### [facility] ([facility]) [address] [place] [id number] [Moles/Vol]142 mmol/FEyzcom675-064WeqtjqdbgsSelect Medical Specialty Hospital - Southeast OhioComment on above:Performed By: #### [id number] #### [facility] ([facility]) [address] [place], [place] [address]Czcp nitrogen [Mass/Vol]18 mg/dLNormal7-25UnSelect Medical Specialty Hospital - Southeast OhioComment on above:Performed By: #### [id number] #### [facility] ([facility]) [address] [facility] [facility] [place], [place] [id number] NITROGEN/CREATININE (MASS RATIO) IN SER/PLAS39.1Normal [facility] CenterComment on above:Performed By: #### [id number] #### [facility] ([facility]) [address] [place], [place] [address]LAP WITH AUTO DIFFERENTIALon 73-57-2580Pvvnfuvyg (Bld) [#/Vol] 0.03 10*3/uLNormal0.00-0.20UnSelect Medical Specialty Hospital - Southeast OhioComment on above: Performed By: #### [id number] #### [facility] ([facility]) [address] [place], [place] [id number]/100 WBC (Bld)0.5 %Normal0.0-1.0UnSelect Medical Specialty Hospital - Southeast OhioComment on above:Performed By: #### [id number] #### [facility] ([facility]) [address] [place], [place] [address]Ycyskxgpigs (Bld) [#/Vol]0.89 10*3/uLHigh0.00-0.50UnSelect Medical Special[facility] Hospital - Southeast OhioComment on above:Performed By: #### [id number] #### [facility] ([facility]) [address] [place], [place] [address]Nllforrhmdg/100 WBC (Bld)13.5 %High0.0-6.0UnSelect [facility] Special[facility] Hospital - Southeast OhioComment on above:Performed By: #### [id number] #### [facility] ([facility]) [address] [place], [place] [address]Cabnqfaydob distribution width (RBC) [Ratio]15.5 %High11.5-15.0 [facility] CenterComment on above:Performed By: #### [id number] #### [facility] ([facility]) [address] [place], [place] [address]XMTYUEQHOIY MEAN CORPUSCULAR HEMOGLOBIN CONCENTRATION (G/DL) BY UOFRCKUKI87.9 g/dLLow32.0-35.0UnSelect [facility] Special[facility] Hospital - Southeast OhioComment on above:Performed By: #### [id number] #### [facility] ([facility]) [address] [place], [place] [address]Uwcsvwtuqy (Bld) [Volume fraction]27.8 %Low39.0-55.0UnSelect [facility] Specialty Hospital - Southeast OhioComment on above:Performed By: #### [id number] #### [facility] ([facility]) [address] [place], [place] [address]Tbdyiequcl (Bld) [Mass/Vol]8.6 g/dLLow13.0-17.0UnSelect [facility] Special[facility] Hospital - Southeast OhioComment on above:Performed By: #### [id number] #### [facility] ([facility]) [address] [place] [address]Ovipgwbf granulocytes (Bld) [#/Vol]0.02 10*3/uLNormal0.00-0.20 [facility] CenterComment on above:Performed By: #### [id number] #### [facility] ([facility]) [address] [facility] [place]LLT[place] [place], [place] [address]Idtzzxte granulocytes/100 WBC (Bld)0.3 %Normal0.0-1.0UnSelect Medical Specialty Hospital - Southeast OhioComment on above:Performed By: #### [id number] #### [facility] ([facility]) [address] [place], [place] [address]Zkztokbmudz (Bld) [#/Vol]0.80 10*3/uLLow1.20-4.00UnSelect Medical Specialty Hospital - Southeast OhioComment on above:Performed By: #### [id number] #### [facility] ([facility]) [address] [place], [place] [address]Iiqevmbpleb/100 WBC (Bld)12.1 %Low20.0-45.0[facility] [place]:Performed By: #### [id number] #### [facility] ([facility]) [address] [place], [place] [address]SVX (RBC) [Entitic mass]30.6 rdEbqxom20.0-33.0[facility] - [place]Comment [place]:Performed By: #### [id number] #### [facility] ([facility]) [address] [place] [place], [place] [address]VZK (RBC) [Entitic vol]98.9 lYZuox24.0-98.0[facility] - [place]Comment [place]:Performed By: #### [id number] #### [facility] ([facility]) [address] [address] [facility] [place], [place] [address]Ocwmvrgfr (Bld) [#/Vol]0.43 10*3/uLNormal0.10-1.00[facility] - [place]Comment [place]:Performed By: #### [id number] #### [facility] ([facility]) [address] [place] [id number]/100 WBC (Bld)6.5 %Normal5.0-12.0[facility] - [place]Comment [place]:Performed By: #### [id number] #### [facility] ([facility]) [address] [place] [id number] (Bld) [#/Vol]4.43 10*3/uLNormal1.60-7.60[facility] - [place]Comment on above:Performed By: #### [id number] #### [facility] ([facility]) [address] [place] [id number]/100 WBC (Bld)67.1 %Oqfnpn91.0-72.0UnSelect Medical Specialty Hospital - [place]Comment on above:Performed By: #### [id number] #### [facility] ([facility]) [address] [place] [id number] (PER 100 WBCS) BY AUTOMATED COUNT0.0 %Dnksco6AcmbzalkfoSelect Medical Specialty Hospital - Southeast [place]Comment on above:Performed By: #### [id number] #### [facility] ([facility]) [address] [place] [id number] (10*3/UL) IN BLOOD AUTOMATED [id number] 10*3/uLNormal 150-400UnSelect Medical Specialty Hospital - [place]Comment on above:Performed By: #### [id number] #### [facility] ([facility]) [address] [place] [id number] (Bld) [#/Vol]2.81 10*6/uLLow4.20-5.70UnSelect Medical Specialty Hospital - [place]Comment on above:Performed By: #### [id number] #### [facility] ([facility]) [address] [place] [id number] (Bld) [#/Vol]6.60 10*3/uLNormal4.00-10.60UnSelect Medical Specialty Hospital - [place]Comment on above:Performed By: #### [id number] #### [facility] ([facility]) [address] [place], [place] [address]NORGMHOHCYTLF METABOLIC PANELon 17-50-3493Nhpysqy [Mass/Vol]2.9 g/dLLow3.5-5.7UnSelect Medical Specialty Hospital - [place]Comment on above:Performed By: #### [id number] #### [facility] ([facility]) [address] [place], [place] [address]IGM [Catalytic activity/Vol]119 U/SAecv44-325HvrugnslvrSelect Medical Specialty Hospital - Southeast [place]Comment on above:Performed By: #### [id number] #### [facility] ([facility]) [address] [place], [place] [address]GVP [Catalytic activity/Vol]12 U/LNormal7-52UnSelect Medical Specialty Hospital - [place]Comment on above:Performed By: #### [id number] #### [facility] ([facility]) [address] [place], [place] [address]Dbibc gap [Moles/Vol]10 mmol/LNormal7-20UnSelect Medical Specialty Hospital - [place]Comment on above:Performed By: #### [id number] #### [facility] ([facility]) [address] [place], [place] [address]IVD [Catalytic activity/Vol]15 U/ILpuvjx00-78NrmmxxwchlSelect Medical Specialty Hospital - Southeast OhioComment on above:Performed By: #### [id number] #### [facility] ([facility]) [address] [place], [place] [address]Oremkxoxu [Mass/Vol]0.4 mg/dLNormal0.3-1.0UnSelect Medical Specialty Hospital - [place]Comment on above:Performed By: #### [id number] #### [facility] ([facility]) [address] [place], [place] [address]Xnutccb [Mass/Vol]8.7 mg/dLNormal8.6-10.3UnSelect Medical Specialty Hospital - [place]Comment on above:Performed By: #### [id number] #### [facility] ([facility]) [address] [place] [id number] [Moles/Vol]103 mmol/ZVeqeys42-407AimknzcneySelect Medical Specialty Hospital - Southeast [place]Comment on above:Performed By: #### [id number] #### [facility] ([facility]) [address] [place] [id number] [Moles/Vol]31 mmol/AUhcflv31-43CwpncitseoSelect Medical Specialty Hospital - Southeast [place]Comment on above:Performed By: #### [id number] #### [facility] ([facility]) [address] [place] [id number] [Mass/Vol]0.47 mg/dLLow0.70-1.30UnSelect Medical Specialty Hospital - [place]Comment on above:Performed By: #### [id number] #### [facility] ([facility]) [address] [place], [place] [address]XQVKSKUHAM FILTRATION RATE ML/MIN/1.73 SQ M.MVWRLURTX915.1 mL/min/1.73m*2Normal>60.0UnSelect Medical Specialty Hospital - [place]Comment on above: Result Comment: The [facility]???s estimated glomerular filtration rate (eGFR) will no [...] potential consequences that do not disproportionately affect anyone group of individuals.Performed By: #### [id number] #### [facility] ([facility]) [address] [id number] [Mass/Vol]114 mg/pLCunz59-867WccbgdmtfrSelect Medical Specialty Hospital - Southeast [place]Comment on above:Performed By: #### [id number] #### [facility] ([facility]) [address] [place] [id number] [Moles/Vol]3.3 mmol/LLow3.5-5.1UnSelect Medical Specialty Hospital - [place]Comment on above:Performed By: #### [id number] #### [facility] ([facility]) [address] [place] [id number] [Mass/Vol]5.9 g/dLLow6.0-8.3UnSelect Medical Specialty Hospital - [place]Comment on above:Performed By: #### [id number] #### [facility] ([facility]) [address] [id number] [Moles/Vol]141 mmol/VAucmlv628-453IcuvcbmomhSelect Medical Specialty Hospital - [place]Comment on above:Performed By: #### [id number] #### [facility] ([facility]) [address] [place] [id number] nitrogen [Mass/Vol]13 mg/dLNormal-UnSelect Medical Specialty Hospital - [place]Comment on above:Performed By: #### [id number] #### [facility] ([facility]) [address] [place] [id number] NITROGEN/CREATININE (MASS RATIO) IN SER/PLAS27.7Normal [facility] CenterComment on above:Performed By: #### [id number] #### [facility] ([facility]) [address] [id number] 50-41-2144Auokvtuoj [Mass/Vol]1.9 mg/dLNormal1.9-2.7 [facility] CenterComment on above:Performed By: #### [id number] #### [facility] ([facility]) [address] [place] [id number] WITH AUTO DIFFERENTIALon 50-85-4377Gwmfumvtn (Bld) [#/Vol] 0.02 10*3/uLNormal0.00-0.20UnSelect Medical Specialty Hospital - [place]Comment on above: Performed By: #### [id number] #### [facility] ([facility]) [address] [place] [id number]/100 WBC (Bld)0.3 %Normal0.0-1.0UnSelect Medical Specialty Hospital - [place]Comment on above:Performed By: #### [id number] #### [facility] ([facility]) [address] [place] [id number] (Bld) [#/Vol]0.81 10*3/uLHigh0.00-0.50UnSelect [facility] Specialty Hospital - [place]Comment on above:Performed By: #### [id number] #### [facility] ([facility]) [address] [place] [id number]/100 WBC (Bld)13.9 %High0.0-6.0UnSelect [facility] Hospital - [place]Comment on above:Performed By: #### [id number] #### [facility] ([facility]) [address] [place] [id number] distribution width (RBC) [Ratio]15.5 %High11.5-15.0 [facility] CenterComment on above:Performed By: #### [id number] #### [facility] ([facility]) [address] [place] [id number] MEAN CORPUSCULAR HEMOGLOBIN CONCENTRATION (G/DL) BY PIKNTFFKU07.4 g/dLLow32.0-35.0UnSelect [facility] Hospital - [place]Comment on above:Performed By: #### [id number] #### [facility] ([facility]) [address] [place] [id number] (Bld) [Volume fraction]25.5 %Low39.0-55.0Un[facility] - [place]Comment on above:Performed By: #### [id number] #### [facility] ([facility]) [address] [place] [id number] (Bld) [Mass/Vol]8.0 g/dLLow13.0-17.0UnSelect [facility] - [place]Comment on above:Performed By: #### [id number] #### [facility] ([facility]) [address] [place], [place] [address]Isganocc granulocytes (Bld) [#/Vol]0.02 10*3/uLNormal0.00-0.20 [facility] CenterComment on above:Performed By: #### [id number] #### [facility] ([facility]) [address] [place], [place] [address]Mubryath granulocytes/100 WBC (Bld)0.3 %Normal0.0-1.0UnSelect [facility] - [place]Comment on above:Performed By: #### [id number] #### [facility] ([facility]) [address] [place], [place] [address]Uiiuiyzanky (Bld) [#/Vol]1.05 10*3/uLLow1.20-4.00UnSelect [facility] - [place]Comment on above:Performed By: #### [id number] #### [facility] ([facility]) [address], [place] [address]Hpbzfstuogh/100 WBC (Bld)18.0 %Low20.0-45.0UnSelect [facility] - [place]Comment on above:Performed By: #### [id number] #### [facility] ([facility]) [address] [place], [place] [address]PJJ (RBC) [Entitic mass]30.3 ojPtjlem02.0-33.0UnSelect [facility] - [place]Comment on above:Performed By: #### [id number] #### [facility] ([facility]) [address] [place], [place] [address]EOH (RBC) [Entitic vol]96.6 wMUzigvi90.0-98.0UnSelect [facility] - [place]Comment on above:Performed By: #### [id number] #### [facility] ([facility]) [address] [place], [place] [address]Ynalangge (Bld) [#/Vol]0.50 10*3/uLNormal0.10-1.00UnSelect [facility] - [place]Comment on above:Performed By: #### [id number] #### [facility] ([facility]) [address] [place] [id number]/100 WBC (Bld)8.6 %Normal5.0-12.0UnSelect [facility] - [place]Comment on above:Performed By: #### [id number] #### [facility] ([facility]) [address] [place] [id number] (Bld) [#/Vol]3.43 10*3/uLNormal1.60-7.60Un[facility] - [place]Comment on above:Performed By: #### [id number] #### [facility] ([facility]) [address] [place] [id number]/100 WBC (Bld)58.9 %Knxjhd86.0-72.0Un[facility] - [place]Comment on above:Performed By: #### [id number] #### [facility] ([facility]) [address] [place] [id number] (PER 100 WBCS) BY AUTOMATED COUNT0.0 %Sccjon8UxevwwqxhxSelect Medical Specialty Hospital - [place]Comment on above:Performed By: #### [id number] #### [facility] ([facility]) [address] [place] [id number] (10*3/UL) IN BLOOD AUTOMATED [id number] 10*3/uLNormal 150-400UnSelect [facility] Special[facility] Hospital - [place]Comment on above:Performed By: #### [id number] #### [facility] ([facility]) [address] [place] [id number] (Bld) [#/Vol]2.64 10*6/uLLow4.20-5.70UnSelect [facility] - [place]Comment on above:Performed By: #### [id number] #### [facility] ([facility]) [address] [place] [id number] (Bld) [#/Vol]5.83 10*3/uLNormal4.00-10.60Un[facility] - [place]Comment on above:Performed By: #### [id number] #### [facility] ([facility]) [address] [place], [place] [address]UEFCYPLFLFFMQ METABOLIC PANELon 41-20-5983Edbzv gap [Moles/Vol]8 mmol/LNormal7-20UnSelect [facility] - [place]Comment on above:Performed By: #### [id number] #### [facility] ([facility]) [address] [place] [address]Poylfdb [Mass/Vol]8.4 mg/dLLow8.6-10.3UnSelect [facility] - [place]Comment on above:Performed By: #### [id number] #### [facility] ([facility]) [address] [place], [place] [address]Ledgcppb [Moles/Vol]101 mmol/SSfdpbv11-748RfnphffpkcSelect Medical Specialty Hospital - [place]Comment on above:Performed By: #### [id number] #### [facility] ([facility]) [address] [place] [address]KC0 [Moles/Vol]29 mmol/GJxwykn43-77RnntuyfacfSelect Medical Specialty Hospital - Southeast [place]Comment on above:Performed By: #### [id number] #### [facility] ([facility]) [address] [place], [place] [address]Lhjrjypffr [Mass/Vol]0.50 mg/dLLow0.70-1.30UnSelect [facility] Special[facility] - [place]Comment on above:Performed By: #### [id number] #### [facility] ([facility]) [address] [place] [address]NXCLVMVAXV FILTRATION RATE ML/MIN/1.73 SQ M.XCGCJUYDN044.2 mL/min/1.73m*2Normal>60.0UnSelect [facility] Special[facility] - [place]Comment on above: Result Comment: The [facility]???s estimated glomerular filtration rate (eGFR) will no [...] potential consequences that do not disproportionately affect anyone group of individuals.Performed By: #### [id number] #### [facility] ([facility]) [address] [place], [place] [address]Bancxsd [Mass/Vol]91 mg/vODekhls94-966CjqqewbrsnSelect Medical Specialty Hospital - Southeast [place]Comment on above:Performed By: #### [id number] #### [facility] ([facility]) [address] [place], [place] [address]Hvdawatlz [Moles/Vol]3.5 mmol/LNormal3.5-5.1UnSelect Medical Special[facility] Hospital - [place]Comment on above:Performed By: #### [id number] #### [facility] ([facility]) [address] [place], [place] [address]Auxzdf [Moles/Vol]134 mmol/ENsf391-900WjbbzqashlSelect Medical Specialty Hospital - Southeast OhioComment on above:Performed By: #### [id number] #### [facility] ([facility]) [address] [place], [place] [address]Izgp nitrogen [Mass/Vol]6 mg/dLLow7-25UnSelect [facility] Specialty Hospital - [place]Comment on above:Performed By: #### [id number] #### [facility] ([facility]) [address] [place], [place] [address]BXFU NITROGEN/CREATININE (MASS RATIO) IN SER/PLAS12.0Normal [facility] CenterComment on above:Performed By: #### [id number] #### [facility] ([facility]) [address] [place], [place] [address]CHVGYJV FUNCTION PANELon 25-39-6440Nbocbyy [Mass/Vol]2.7 g/dLLow 3.5-5.7UnSelect Medical Specialty Hospital - [place]Comment on above:Performed By: #### [id number] #### [facility] ([facility]) [address] [place], [place] [address]Ttkzryrub By: #### [id number] #### [facility] ([facility] [address] [place], [place] [address]MVU [Catalytic activity/Vol]106 U/TQybn48-009JqirmdehzoSelect Medical Specialty Hospital - Southeast OhioComment on above:Performed By: #### [id number] #### [facility] ([facility] [address] [place], [place] [address]Mmamjmkmt By: #### [id number] #### [facility] ([facility]) [address] [place], [place] [address]MGF [Catalytic activity/Vol]15 U/LNormal7-52UnSelect Medical Specialty Hospital - [place] OhioComment on above:Performed By: #### [id number] #### [facility] ([facility]) [address] [place], [place] [address]Vdytkusor By: #### [id number] #### [facility] ([facility]) [address] [place], [place] [address]CLP [Catalytic activity/Vol]16 U/JJakxhj09-68QrxqjedssaSelect Medical Specialty Hospital - [place]Comment on above:Performed By: #### [id number] #### [facility] ([facility]) [address] [place], [place] [address]Ltmwqawvg By: #### [id number] #### [facility] ([facility]) [address] [place], [place] [address]Rblxseqne [Mass/Vol]0.5 mg/dLNormal0.3-1.0UnSelect [facility] Special[facility] - [place]Comment on above:Performed By: #### [id number] #### [facility] ([facility] [address] [place], [place] [address]Rzwkjchxv By: #### [id number] #### [facility] ([facility]) [address] [place], [place] [address]Cgckhskpq [Mass/Vol]0.1 mg/dLNormal0-0.2UnSelect [facility] Special[facility] - [place]Comment on above:Performed By: #### [id number] #### [facility] ([facility]) [address] [place], [place] [address]Tijsaje [Mass/Vol]5.7 g/dLLow6.0-8.3UnSelect [facility] Special[facility] - [place]Comment on above:Performed By: #### [id number] #### [facility] ([facility]) [address] [place] [address]Edzfapptq By: #### [id number] #### [facility] ([facility]) [address] [place] [address]ZCDYJSVHTgy 37-09-3834Cazewekpc [Mass/Vol]1.8 mg/dLLow1.9-2.7 [facility] CenterComment on above:Performed By: #### [id number] #### [facility] ([facility]) [address] [place] [address]CDBZLMXUKHgl 45-25-0120Sexaxcuxj [Mass/Vol]3.2 mg/dLNormal 2.5-5.0UnSelect Medical Specialty Hospital - [place]Comment on above:Performed By: #### [id number] #### [facility] ([facility]) [address] [place] [address]WDNCTVSCSTUCFze 79-67-7562MKIRSOJ?UnknownNormalUniversCincinnati Shriners HospitalComment on above:Performed By: #### [id number] #### [facility] ([facility]) [address] [place] [address]Ekejqwydx [Mass/Vol]100 mg/kDIgryeg81-923XimftyfflaSelect Medical Specialty Hospital - Southeast OhioComment on above:Result Comment: TRIGLYCERIDE REFERENCE RANGE: 20 YEARS AND OLDER CARDIOVASCULAR RISK LESS THAN 150 mg/dL LOW RISK 150 TO 199 mg/dL BORDERLINE RISK 200 mg/dL AND GREATER HIGH RISKPerformed By: #### [id number] #### [facility] ([facility]) [address] [place] [address]WTEKN METABOLIC PANELon 91-04-5351Yxbso gap [Moles/Vol]8 mmol/L Normal7-20UnSelect Medical Specialty Hospital - [place] OhioComment on above:Performed By: #### [id number] #### [facility] ([facility]) [address] [place] [address]Amrnlkw [Mass/Vol]8.3 mg/dLLow8.6-10.3UnSelect Medical Specialty Hospital - [place] OhioComment on above:Performed By: #### [id number] #### [facility] ([facility]) [address] [place] [id number] [Moles/Vol]102 mmol/CDrtgmj28-836BysasyyheaSelect Medical Specialty Hospital - Southeast [place]Comment on above:Performed By: #### [id number] #### [facility] ([facility]) [address] [place] [id number] [Moles/Vol]30 mmol/PTfyjpy86-21ZhzecvfwqhSelect Medical Specialty Hospital - [place]Comment on above:Performed By: #### [id number] #### [facility] ([facility]) [address] [place] [id number] [Mass/Vol]0.54 mg/dLLow0.70-1.30UnSelect Medical Specialty Hospital - [place] OhioComment on above:Performed By: #### [id number] #### [facility] ([facility]) [address] [place] [id number] FILTRATION RATE ML/MIN/1.73 SQ M.CXBBIUKPJ10.9 mL/min/1.73m*2Normal>60.0UnSelect Medical Specialty Hospital - [place]Comment on above: Result Comment: [facility]???s estimated glomerular filtration rate (eGFR) will no [...] potential consequences that do not disproportionately affect anyone group of individuals.Performed By: #### [id number] #### [facility] ([facility]) [address] [place] [id number] [Mass/Vol]92 mg/pLJovduz53-023QdoflolqtsSelect Medical Specialty Hospital - Southeast OhioComment on above:Performed By: #### [id number] #### [facility] ([facility]) [address] [facility] [facility] [place], [place] [address]Wnqyuamjb [Moles/Vol]3.6 mmol/LNormal3.5-5.1UnSelect Medical Specialty Hospital - [place] OhioComment on above:Performed By: #### [id number] #### [facility] ([facility]) [address] [address] [place], [place] [address]Uuqhtj [Moles/Vol]136 mmol/ZPwyhvo416-404HppwujbjjaSelect Medical Specialty Hospital - Southeast OhioComment on above:Performed By: #### [id number] #### [facility] ([facility]) [address] [place], [place] [address]Zihs nitrogen [Mass/Vol]7 mg/dLNormal7-25UnSelect Medical Specialty Hospital - [place] OhioComment on above:Performed By: #### [id number] #### [facility] ([facility]) [address] [place], [place] [address]OISI NITROGEN/CREATININE (MASS RATIO) IN SER/PLAS13.0Normal [facility] CenterComment on above:Performed By: #### [id number] #### [facility] ([facility]) [address] [place], [place] [address]HFX WITH AUTO DIFFERENTIALon 44-59-9596Cfvvkzqtn (Bld) [#/Vol] 0.03 10*3/uLNormal0.00-0.20UnSelect Medical Specialty Hospital - [place] OhioComment on above: Performed By: #### [id number] #### [facility] ([facility]) [address] [place], [place] [address]Aavmsvnba/100 WBC (Bld)0.5 %Normal0.0-1.0UnSelect Medical Specialty Hospital - [place] OhioComment on above:Performed By: #### [id number] #### [facility] ([facility]) [address] [place], [place] [address]Xjhvoelvogd (Bld) [#/Vol]0.70 10*3/uLHigh0.00-0.50UnSelect [facility] Specialty Hospital - [place] OhioComment on above:Performed By: #### [id number] #### [facility] ([facility]) [address] [place], [place] [address]Ppojmdsyzab/100 WBC (Bld)11.8 %High0.0-6.0UnSelect [facility] Specialty Hospital - [place] OhioComment on above:Performed By: #### [id number] #### [facility] ([facility]) [address] [place], [place] [address]Stbtkcrgkvo distribution width (RBC) [Ratio]15.3 %High11.5-15.0 [facility] CenterComment on above:Performed By: #### [id number] #### [facility] ([facility]) [address] [facility] [place], [place] [address]EQQGUFVVRNR MEAN CORPUSCULAR HEMOGLOBIN CONCENTRATION (G/DL) BY UKQUOTCXY88.9 g/dLLow32.0-35.0UnSelect [facility] Specialty Hospital - [place] OhioComment on above:Performed By: #### [id number] #### [facility] ([facility]) [address] [facility] [place], [place] [address]Bxtrwzdblv (Bld) [Volume fraction]26.3 %Low39.0-55.0UnSelect Medical Specialty Hospital - Southeast OhioComment on above:Performed By: #### [id number] #### [facility] ([facility]) [address] [place], [place] [address]Ulqsthkdqw (Bld) [Mass/Vol]8.4 g/dLLow13.0-17.0Un[facility] - [facility] OhioComment on above:Performed By: #### [id number] #### [facility] ([facility]) [address] [place] [place], [place] [address]Imfeltjc granulocytes (Bld) [#/Vol]0.02 10*3/uLNormal0.00-0.20 [facility] CenterComment on above:Performed By: #### [id number] #### [facility] ([facility]) [address] [place] [place], [place] [address]Zqhfwzap granulocytes/100 WBC (Bld)0.3 %Normal0.0-1.0[facility] - [facility] [place]Comment on above:Performed By: #### [id number] #### [facility] ([facility]) [address] [place], [place] [address]Pplzjobtbgy (Bld) [#/Vol]0.92 10*3/uLLow1.20-4.00Un[facility] - [facility] OhioComment on above:Performed By: #### [id number] #### [facility] ([facility]) [address] [place] [place], [place] [address]Pbvucwmogdn/100 WBC (Bld)15.5 %Low20.0-45.0[facility] - [facility] OhioComment on above:Performed By: #### [id number] #### [facility] ([facility]) [address] [place], [place] [address]PGX (RBC) [Entitic mass]30.3 wrUhkkiw24.0-33.0Un[facility] - [facility] OhioComment on above:Performed By: #### [id number] #### [facility] [facility]) [address] [place], [place] [address]XXR (RBC) [Entitic vol]94.9 dAMlswyj44.0-98.0UnSelect [facility] Hospital - Southeast OhioComment on above:Performed By: #### [id number] #### [facility] ([facility]) [address] [place], [place] [address]Wivzfwqft (Bld) [#/Vol]0.33 10*3/uLNormal0.10-1.00Un[facility] Southeast OhioComment on above:Performed By: #### [id number] #### [facility] ([facility]) [address] [place], [place] [address]Bwlpilzxr/100 WBC (Bld)5.5 %Normal5.0-12.0Un[facility] - Southeast OhioComment on above:Performed By: #### [id number] #### [facility] ([facility]) [address] [place], [place] [address]Rsqklojfqop (Bld) [#/Vol]3.95 10*3/uLNormal1.60-7.60UnSelect [facility] - Southeast OhioComment on above:Performed By: #### [id number] #### [facility] ([facility]) [address] [address]Jizmibipsxy/100 WBC (Bld)66.4 %Oeojnu02.0-72.0UnSelect [facility] Southeast OhioComment on above:Performed By: #### [id number] #### [facility] ([facility]) [address] [id number] (PER 100 WBCS) BY AUTOMATED COUNT0.0 %Iizhcx0YtdsaxcoirSelect Medical Specialty Hospital - Southeast OhioComment on above:Performed By: #### [id number] #### [facility] ([facility]) [address] [address]BMYKWTQAO (10*3/UL) IN BLOOD AUTOMATED [id number] 10*3/uLNormal 150-400UnSelect [facility] - Southeast OhioComment on above:Performed By: #### [id number] #### [facility] ([facility]) [address] [address]HKF (Bld) [#/Vol]2.77 10*6/uLLow4.20-5.70UnSelect [facility] - Southeast OhioComment on above:Performed By: #### [id number] #### [facility] ([facility]) [address] [address]TMJ (Bld) [#/Vol]5.95 10*3/uLNormal4.00-10.60Un[facility] - Southeast OhioComment on above:Performed By: #### [id number] #### [facility] ([facility]) [address] [address]UWTUFHIYHto 51-32-2978Phgxnasls [Mass/Vol]2.1 mg/dLNormal1.9-2.7 [facility] CenterComment on above:Performed By: #### [id number] #### [facility] ([facility]) [address] [address]WGL WITH AUTO DIFFERENTIALon 64-65-4513Nwzhfjhqw (Bld) [#/Vol] 0.02 10*3/uLNormal0.00-0.20UnSelect [facility] - Southeast OhioComment on above: Performed By: #### [id number] #### [facility] ([facility]) [address] [place] [id number]/100 WBC (Bld)0.3 %Normal0.0-1.0Un[facility] - Southeast OhioComment on above:Performed By: #### [id number] #### [facility] ([facility]) [address] [place] [id number] (Bld) [#/Vol]0.73 10*3/uLHigh0.00-0.50UnSelect [facility] - Southeast OhioComment on above:Performed By: #### [id number] #### [facility] ([facility]) [address] [place] [id number]/100 WBC (Bld)12.1 %High0.0-6.0Un[facility] - Southeast OhioComment on above:Performed By: #### [id number] #### [facility] ([facility]) [address] [place], [place] [id number] distribution width (RBC) [Ratio]15.4 %High11.5-15.0 [facility] CenterComment on above:Performed By: #### [id number] #### [facility] ([facility]) [address] [place] [id number] MEAN CORPUSCULAR HEMOGLOBIN CONCENTRATION (G/DL) BY MLSHOAOQV64.5 g/eQKwptcp79.0-35.0Un[facility] - Southeast OhioComment on above:Performed By: #### [id number] #### [facility] ([facility]) [address] [place] [id number] (Bld) [Volume fraction]24.9 %Low39.0-55.0Un[facility] - Southeast OhioComment on above:Performed By: #### [id number] #### [facility] ([facility]) [address] [place] [id number] (Bld) [Mass/Vol]8.1 g/dLLow13.0-17.0Un[facility] - Southeast OhioComment on above:Performed By: #### [id number] #### [facility] ([facility]) [address] [place] [id number] granulocytes (Bld) [#/Vol]0.03 10*3/uLNormal0.00-0.20 [facility] CenterComment on above:Performed By: #### [id number] #### [facility] ([facility]) [address] [place] [id number] granulocytes/100 WBC (Bld)0.5 %Normal0.0-1.0Un[facility] - Southeast OhioComment on above:Performed By: #### [id number] #### [facility] ([facility]) [address] [place] [id number] (Bld) [#/Vol]0.86 10*3/uLLow1.20-4.00Un[facility] - [facility] OhioComment on above:Performed By: #### [id number] #### [facility] ([facility]) [address] [place] [id number]/100 WBC (Bld)14.3 %Low20.0-45.0Un[facility] - [facility] OhioComment on above:Performed By: #### [id number] #### [facility] ([facility]) [address] [place] [id number] (RBC) [Entitic mass]30.5 sjHkzsno26.0-33.0Un[facility] - [facility] OhioComment on above:Performed By: #### [id number] #### [facility] ([facility]) [address] [place] [id number] (RBC) [Entitic vol]93.6 sMXjwikx73.0-98.0Un[facility] - [facility] OhioComment on above:Performed By: #### [id number] #### [facility] ([facility]) [address] [place] [id number] (Bld) [#/Vol]0.40 10*3/uLNormal0.10-1.00Un[facility] OhioComment on above:Performed By: #### [id number] #### [facility] ([facility]) [address] [place] [id number]/100 WBC (Bld)6.7 %Normal5.0-12.0Un[facility] - [facility] OhioComment on above:Performed By: #### [id number] #### [facility] ([facility]) [address] [place] [id number] (Bld) [#/Vol]3.97 10*3/uLNormal1.60-7.60Un[facility] - Southeast OhioComment on above:Performed By: #### [id number] #### [facility] ([facility]) [address] [place] [id number]/100 WBC (Bld)66.1 %Eedpcj41.0-72.0Un[facility] - [facility] OhioComment on above:Performed By: #### [id number] #### [facility] ([facility]) [address] [place] [id number] (PER 100 WBCS) BY AUTOMATED COUNT0.0 %Ileyro3XjxwrqvjwgSelect Medical Specialty Hospital - Southeast OhioComment on above:Performed By: #### [id number] #### [facility] ([facility]) [address] [place] [id number] (10*3/UL) IN BLOOD AUTOMATED [id number] 10*3/uLNormal 150-400Un[facility] - Southeast OhioComment on above:Performed By: #### [id number] #### [facility] ([facility]) [address] [place] [id number] (Bld) [#/Vol]2.66 10*6/uLLow4.20-5.70Un[facility] OhioComment on above:Performed By: #### [id number] #### [facility] ([facility]) [address] [place] [address]AXZ (Bld) [#/Vol]6.01 10*3/uLNormal4.00-10.60Un[facility] OhioComment on above:Performed By: #### [id number] #### [facility] ([facility]) [address] [place] [address]SMFXPWBVHWOKK METABOLIC PANELon 08-27-1070Hxyjqlv [Mass/Vol]2.7 g/dLLow3.5-5.7UnSelect [facility] - Southeast OhioComment on above:Performed By: #### [id number] #### [facility] ([facility]) [address] [place] [address]IWK [Catalytic activity/Vol]106 U/QRzpb58-533KgydgzfnhnSelect Medical Specialty Hospital - Southeast OhioComment on above:Performed By: #### [id number] #### [facility] ([facility]) [address] [place] [address]VHW [Catalytic activity/Vol]16 U/LNormal7-52Un[facility] - [facility] OhioComment on above:Performed By: #### [id number] #### [facility] ([facility]) [address] [place] [address]Twsei gap [Moles/Vol]8 mmol/LNormal7-20Un[facility] OhioComment on above:Performed By: #### [id number] #### [facility] ([facility]) [address] [place] [address]URL [Catalytic activity/Vol]12 U/FSnh55-27KwdrdwxjydSelect Medical Specialty Hospital - Southeast OhioComment on above:Performed By: #### [id number] #### [facility] ([facility]) [address] [place], [place] [address]Cxpabpfly [Mass/Vol]0.4 mg/dLNormal0.3-1.0Un[facility] Southeast OhioComment on above:Performed By: #### [id number] #### [facility] ([facility]) [address] [place] [address]Sdvxzrq [Mass/Vol]8.3 mg/dLLow8.6-10.3UnSelect [facility] - Southeast OhioComment on above:Performed By: #### [id number] #### [facility] ([facility]) [address] [place] [id number] [Moles/Vol]101 mmol/JJexjxd17-488FhhhmtsujsSelect Medical Specialty Hospital - Southeast OhioComment on above:Performed By: #### [id number] #### [facility] ([facility]) [address] [place] [id number] [Moles/Vol]28 mmol/MNudzfw72-75DlhwbpltolSelect Medical Specialty Hospital - Southeast OhioComment on above:Performed By: #### [id number] #### [facility] ([facility]) [address] [place] [id number] [Mass/Vol]0.55 mg/dLLow0.70-1.30Un[facility] - [facility] OhioComment on above:Performed By: #### [id number] #### [facility] ([facility]) [address] [place], [place] [address]BGGPQFVBVA FILTRATION RATE ML/MIN/1.73 SQ M.ZTWBWOZKM26.3 mL/min/1.73m*2Normal>60.0Un[facility] - [facility] OhioComment on above: Result Comment: [facility]???s estimated glomerular filtration rate (eGFR) will no [...] potential consequences that do not disproportionately affect anyone group of individuals.Performed By: #### [id number] #### [facility] ([facility]) [address] [place] [id number] [Mass/Vol]102 mg/rMOoxl59-180YnyfwxprloSelect Medical Specialty Hospital - Southeast OhioComment on above:Performed By: #### [id number] #### [facility] ([facility]) [address] [place], [place] [address]Pacqnawyv [Moles/Vol]3.4 mmol/LLow3.5-5.1UnSelect [facility] Hospital - Southeast OhioComment on above:Performed By: #### [id number] #### [facility] ([facility]) [address] [place], [place] [address]Gznnagt [Mass/Vol]5.5 g/dLLow6.0-8.3UnSelect [facility] - Southeast OhioComment on above:Performed By: #### [id number] #### [facility] ([facility]) [address] [place], [place] [address]Jqabot [Moles/Vol]134 mmol/FWfg946-923FrgigwyemkSelect Medical Specialty Hospital - Southeast OhioComment on above:Performed By: #### [id number] #### [facility] ([facility]) [address] [place], [place] [address]Wtxb nitrogen [Mass/Vol]10 mg/dLNormal7-25UnSelect [facility] Special[facility] Southeast OhioComment on above:Performed By: #### [id number] #### [facility] ([facility]) [address] [place], [place] [address]QTYN NITROGEN/CREATININE (MASS RATIO) IN SER/PLAS18.2Normal [facility] CenterComment on above:Performed By: #### [id number] #### [facility] ([facility]) [address] [place], [place] [address]LGYFXFV FUNCTION PANELon 25-54-3447Ciyxlaxxj [Mass/Vol]0.2 mg/dL Normal0-0.2UnSelect [facility] Special[facility] Hospital - Southeast OhioComment on above:Performed By: #### [id number] #### [facility] ([facility]) [address] [place], [place] [address]YLDBXIJEYxr 81-39-5085Cwfrbbsni [Mass/Vol]1.6 mg/dLLow1.9-2.7 [facility] CenterComment on above:Performed By: #### [id number] #### [facility] ([facility]) [address] [place] [place], [place] [address]LERBE METABOLIC PANELon 99-79-0489Gcarp gap [Moles/Vol]9 mmol/L Normal7-20UnSelect [facility] - Southeast OhioComment on above:Performed By: #### [id number] #### [facility] ([facility]) [address] [address]Hlpgdji [Mass/Vol]8.7 mg/dLNormal8.6-10.3UnSelect [facility] Special[facility] - Southeast OhioComment on above:Performed By: #### [id number] #### [facility] ([facility]) [address] [place] [address]Bnoifarg [Moles/Vol]100 mmol/ZOodnjh60-437CgyoxdhfzsSelect Medical Specialty Hospital - Southeast OhioComment on above:Performed By: #### [id number] #### [facility] ([facility]) [address] [place] [address]FJ7 [Moles/Vol]29 mmol/HHyexsk42-48MrzkcsrjazSelect Medical Specialty Hospital - Southeast OhioComment on above:Performed By: #### [id number] #### [facility] ([facility]) [address] [place] [address]Fznczqmtdn [Mass/Vol]0.52 mg/dLLow0.70-1.30UnSelect [facility] - Southeast OhioComment on above:Performed By: #### [id number] #### [facility] ([facility]) [address] [place] [address]VGPLBXYKIA FILTRATION RATE ML/MIN/1.73 SQ M.JFOKBAGYZ509.0 mL/min/1.73m*2Normal>60.0UnSelect [facility] - Southeast OhioComment on above: Result Comment: [facility]???s estimated glomerular filtration rate (eGFR) will no [...] potential consequences that do not disproportionately affect anyone group of individuals.Performed By: #### [id number] #### [facility] ([facility]) [address] [place] [id number] [Mass/Vol]95 mg/bPWgkxgg84-130VkuedtdphfSelect Medical Specialty Hospital - Southeast OhioComment on above:Performed By: #### [id number] #### [facility] ([facility]) [address] [place] [id number] [Moles/Vol]3.6 mmol/LNormal3.5-5.1UnSelect [facility] Southeast OhioComment on above:Performed By: #### [id number] #### [facility] ([facility]) [address] [place] [id number] [Moles/Vol]134 mmol/TWia093-899BhfzwbotdeSelect Medical Specialty Hospital - Southeast OhioComment on above:Performed By: #### [id number] #### [facility] ([facility]) [address] [place] [id number] nitrogen [Mass/Vol]21 mg/dLNormal7-25UnSelect [facility] Special[facility] Southeast OhioComment on above:Performed By: #### [id number] #### [facility] ([facility]) [address] [place] [id number] NITROGEN/CREATININE (MASS RATIO) IN SER/PLAS40.4Normal [facility] CenterComment on above:Performed By: #### [id number] #### [facility] ([facility]) [address] [place] [id number] 79-36-8288Lqbdsumovbw distribution width (RBC) [Ratio]15.5 %High11.5-15.0UnSelect [facility] - Southeast OhioComment on above:Performed By: #### [id number] #### [facility] ([facility]) [address] [place] [id number] MEAN CORPUSCULAR HEMOGLOBIN CONCENTRATION (G/DL) BY RFORJUEQU61.8 g/dLLow32.0-35.0UnSelect [facility] Southeast OhioComment on above:Performed By: #### [id number] #### [facility] ([facility]) [address] [place] [id number] (Bld) [Volume fraction]28.0 %Low39.0-55.0UnSelect [facility] - Southeast OhioComment on above:Performed By: #### [id number] #### [facility] ([facility]) [address] [place] [id number] (Bld) [Mass/Vol]8.9 g/dLLow13.0-17.0Un[facility] - Southeast OhioComment on above:Performed By: #### [id number] #### [facility] ([facility]) [address] [place] [id number] (RBC) [Entitic mass]31.3 kjFgzhbc49.0-33.0Un[facility] - [facility] OhioComment on above:Performed By: #### [id number] #### [facility] ([facility]) [address] [place] [id number] (RBC) [Entitic vol]98.6 vITeri58.0-98.0Un[facility] - Southeast OhioComment on above:Performed By: #### [id number] #### [facility] ([facility]) [address] [place] [id number] (10*3/UL) IN BLOOD AUTOMATED [id number] 10*3/uLNormal 150-400UnSelect [facility] Special[facility] - Southeast OhioComment on above:Performed By: #### [id number] #### [facility] ([facility]) [address] [place] [id number] (Bld) [#/Vol]2.84 10*6/uLLow4.20-5.70UnSelect [facility] Special[facility] - Southeast OhioComment on above:Performed By: #### [id number] #### [facility] ([facility]) [address] [place] [id number] (Bld) [#/Vol]5.94 10*3/uLNormal4.00-10.60Un[facility] - Southeast OhioComment on above:Performed By: #### [id number] #### [facility] ([facility]) [address] [place] [id number] 51-83-0726Echplgwesyb distribution width (RBC) [Ratio]16.1 %High11.5-15.0UnSelect [facility] - Southeast OhioComment on above:Performed By: #### [id number] #### [facility] ([facility]) [address] [place] [id number] MEAN CORPUSCULAR HEMOGLOBIN CONCENTRATION (G/DL) BY HSEUEYACG81.9 g/dLLow32.0-35.0UnSelect [facility] - Southeast OhioComment on above:Performed By: #### [id number] #### [facility] ([facility]) [address] [place] [id number] (Bld) [Volume fraction]25.6 %Low39.0-55.0UnSelect [facility] - Southeast OhioComment on above:Performed By: #### [id number] #### [facility] ([facility]) [address] [place] [id number] (Bld) [Mass/Vol]7.9 g/dLLow13.0-17.0UnSelect [facility] - Southeast OhioComment on above:Performed By: #### [id number] #### [facility] ([facility]) [address] [place] [id number] (RBC) [Entitic mass]30.9 fwAiirzt41.0-33.0UnSelect [facility] - Southeast OhioComment on above:Performed By: #### [id number] #### [facility] ([facility]) [address] [place] [id number] (RBC) [Entitic vol]100.0 eWYpiq42.0-98.0UnSelect [facility] - Southeast OhioComment on above:Performed By: #### [id number] #### [facility] ([facility]) [address] [place] [id number] (10*3/UL) IN BLOOD AUTOMATED [id number] 10*3/uLNormal 150-400UnSelect [facility] Special[facility] - Southeast OhioComment on above:Performed By: #### [id number] #### [facility] ([facility]) [address] [place] [address]HGT (Bld) [#/Vol]2.56 10*6/uLLow4.20-5.70UnSelect [facility] Special[facility] - Southeast OhioComment on above:Performed By: #### [id number] #### [facility] ([facility]) [address] [place] [address]JNQ (Bld) [#/Vol]8.31 10*3/uLNormal4.00-10.60UnSelect [facility] - Southeast OhioComment on above:Performed By: #### [id number] #### [facility] ([facility]) [address] [place] [address]YYCXOYYLEXKKJ METABOLIC PANELon 02-36-0741Imcrrju [Mass/Vol]2.8 g/dLLow3.5-5.7UnSelect [facility] Special[facility] - Southeast OhioComment on above:Performed By: #### [id number] #### [facility] ([facility]) [address] [place], [place] [address]TBS [Catalytic activity/Vol]112 U/XYanf00-384UnjvocizmuSelect Medical Specialty Hospital - Southeast OhioComment on above:Performed By: #### [id number] #### [facility] ([facility]) [address] [place] [address]HWQ [Catalytic activity/Vol]16 U/LNormal7-52UnSelect Medical Specialty Hospital - Southeast OhioComment on above:Performed By: #### [id number] #### [facility] ([facility]) [address] [place], [place] [address]Yikbw gap [Moles/Vol]8 mmol/LNormal7-20UnSelect [facility] Special[facility] - Southeast OhioComment on above:Performed By: #### [id number] #### [facility] ([facility]) [address] [place], [place] [address]ZJK [Catalytic activity/Vol]12 U/NVdq90-97GroscquxwhSelect Medical Specialty Hospital - Southeast OhioComment on above:Performed By: #### [id number] #### [facility] ([facility]) [address] [place] [address]Xdackvvvk [Mass/Vol]0.3 mg/dLNormal0.3-1.0UnSelect [facility] Special[facility] - Southeast OhioComment on above:Performed By: #### [id number] #### [facility] ([facility]) [address] [place] [address]Lxazlyg [Mass/Vol]8.6 mg/dLNormal8.6-10.3UnSelect [facility] Special[facility] - Southeast OhioComment on above:Performed By: #### [id number] #### [facility] ([facility]) [address] [place], [place] [address]Ekqvvtjb [Moles/Vol]100 mmol/RRsscrd49-177CufkqrzrguSelect Medical Specialty Hospital - Southeast OhioComment on above:Performed By: #### [id number] #### [facility] ([facility]) [address] [place], [place] [address]XS6 [Moles/Vol]29 mmol/BXyhyxq07-54DlcwqoushdSelect Medical Specialty Hospital - Southeast OhioComment on above:Performed By: #### [id number] #### [facility] ([facility]) [address] [place], [place] [address]Dtiscfvfjs [Mass/Vol]0.78 mg/dLNormal0.70-1.30UnSelect Medical Specialty Hospital - Southeast OhioComment on above:Performed By: #### [id number] #### [facility] ([facility]) [address] [place], [place] [address]IDKCEPUHJU FILTRATION RATE ML/MIN/1.73 SQ M.CKCXTERFH93.5 mL/min/1.73m*2Normal>60.0UnSelect Medical Specialty Hospital - Southeast OhioComment on above: Result Comment: [facility]???s estimated glomerular filtration rate (eGFR) will no [...] potential consequences that do not disproportionately affect anyone group of individuals.Performed By: #### LAB17 #### [facility] ([facility]) [address] [place], [place] [address]Rldklzm [Mass/Vol]107 mg/oQXigi67-419JpxdahpmojSelect Medical Specialty Hospital - Southeast OhioComment on above:Performed By: #### [id number] #### [facility] ([facility]) [address] [place], [place] [address]Ihhxonbtv [Moles/Vol]3.9 mmol/LNormal3.5-5.1UnSelect [facility] - [facility] OhioComment on above:Performed By: #### [id number] #### [facility] ([facility]) [address] [place], [place] [address]Kmvohof [Mass/Vol]6.0 g/dLNormal6.0-8.3UnSelect [facility] OhioComment on above:Performed By: #### [id number] #### [facility] ([facility]) [address] [place], [place] [address]Loqlro [Moles/Vol]133 mmol/ZTfm150-808MetgbhnyngSelect Medical Specialty Hospital - Southeast OhioComment on above:Performed By: #### [id number] #### [facility] ([facility]) [address] [place], [place] [address]Nyvk nitrogen [Mass/Vol]37 mg/dLHigh7-25UnSelect [facility] OhioComment on above:Performed By: #### [id number] #### [facility] ([facility]) [address] [place], [place] [address]MMPU NITROGEN/CREATININE (MASS RATIO) IN SER/PLAS47.4Normal [facility] CenterComment on above:Performed By: #### [id number] #### [facility] ([facility]) [address] [place], [place] [address]PALIG METABOLIC PANELon 12-92-5158Hrowv gap [Moles/Vol]11 mmol/L Normal7-20UnSelect Medical Specialty Hospital - Southeast OhioComment on above:Performed By: #### [id number] #### [facility] ([facility]) [address] [address]Aphsphb [Mass/Vol]8.7 mg/dLNormal8.6-10.3UnSelect Medical Specialty Hospital - Southeast OhioComment on above:Performed By: #### [id number] #### [facility] ([facility]) [address] [address]Ltefeioe [Moles/Vol]102 mmol/FOqftbb36-809HoctsebcusSelect Medical Specialty Hospital - Southeast OhioComment on above:Performed By: #### [id number] #### [facility] ([facility]) [address] [address]RA5 [Moles/Vol]25 mmol/LEqytgv95-36IisexmdimySelect Medical Specialty Hospital - Southeast OhioComment on above:Performed By: #### [id number] #### [facility] ([facility]) [address] [place] [id number] [Mass/Vol]0.82 mg/dLNormal0.70-1.30UnSelect Medical Specialty Hospital - Southeast OhioComment on above:Performed By: #### [id number] #### [facility] ([facility]) [address] [address]TQGORDNHWL FILTRATION RATE ML/MIN/1.73 SQ M.JTPLQWZYA79.2 mL/min/1.73m*2Normal>60.0UnSelect Medical Specialty Hospital - Southeast OhioComment on above: Result Comment: [facility]???s estimated glomerular filtration rate (eGFR) will no [...] potential consequences that do not disproportionately affect anyone group of individuals.Performed By: #### [id number] #### [facility] ([facility]) [address] [place], [place] [address]Cynpwnr [Mass/Vol]55 mg/kMHro63-640GdfkjaabcdSelect Medical Specialty Hospital - Southeast OhioComment on above:Performed By: #### [id number] #### [facility] ([facility]) [address] [place] [id number] [Moles/Vol]3.8 mmol/LNormal3.5-5.1UnSelect Medical Specialty Hospital - Southeast OhioComment on above:Performed By: #### [id number] #### [facility] ([facility]) [address] [facility] [place], [place] [address]Yartpq [Moles/Vol]134 mmol/PFog287-142JvwkkfnesjSelect Medical Specialty Hospital - Southeast OhioComment on above:Performed By: #### [id number] #### [facility] ([facility]) [address] [place], [place] [address]Ikjl nitrogen [Mass/Vol]41 mg/dLHigh7-25UnSelect Medical Specialty Hospital - Southeast OhioComment on above:Performed By: #### [id number] #### [facility] ([facility]) [address] [place], [place] [address]IROE NITROGEN/CREATININE (MASS RATIO) IN SER/PLAS50.0Normal [facility] Medical CenterComment on above:Performed By: #### [id number] #### [facility] ([facility]) [address] [place], [place] [address]AYNkt 93-42-5527Sinaupnjaps distribution width (RBC) [Ratio]15.8 %High11.5-15.0UnSelect Medical Specialty Hospital - Southeast OhioComment on above:Performed By: #### [id number] #### [facility] ([facility]) [address] [place], [place] [address]PGJAGOZBCZF MEAN CORPUSCULAR HEMOGLOBIN CONCENTRATION (G/DL) BY ZGZHHGLHC04.4 g/dLLow32.0-35.0UnSelect Medical Specialty Hospital - Southeast OhioComment on above:Performed By: #### [id number] #### [facility] ([facility]) [address] [place], [place] [id number] (Bld) [Volume fraction]29.3 %Low39.0-55.0UnSelect Medical Specialty Hospital - Southeast OhioComment on above:Performed By: #### [id number] #### [facility] ([facility]) [address] [place], [place] [address]Cdqflujcfy (Bld) [Mass/Vol]8.9 g/dLLow13.0-17.0UnSelect Medical Specialty Hospital - Southeast OhioComment on above:Performed By: #### [id number] #### [facility] ([facility]) [address] [facility] [place], [place] [address]VVD (RBC) [Entitic mass]30.7 psYyuryd55.0-33.0UnSelect Medical Specialty Hospital - Southeast OhioComment on above:Performed By: #### [id number] #### [facility] ([facility]) [address] [facility] [place], [place] [address]SVD (RBC) [Entitic vol]101.0 dWCbjt21.0-98.0UnSelect Medical Specialty Hospital - Southeast OhioComment on above:Performed By: #### [id number] #### [facility] ([facility]) [address] [place], [place] [address]ZCLZTTVTB (10*3/UL) IN BLOOD AUTOMATED [id number] 10*3/uLNormal 150-400UnSelect Medical Specialty Hospital - Southeast OhioComment on above:Performed By: #### [id number] #### [facility] ([facility]) [address] [facility] [place], [place] [address]CCV (Bld) [#/Vol]2.90 10*6/uLLow4.20-5.70UnSelect Medical Specialty Hospital - Southeast OhioComment on above:Performed By: #### [id number] #### [facility] ([facility]) [address] [facility] [place], [place] [address]EWS (Bld) [#/Vol]11.69 10*3/uLHigh4.00-10.60UnSelect Medical Specialty Hospital - Southeast OhioComment on above:Performed By: #### [id number] #### [facility] ([facility]) [address] [place] [address]LGTIJLOTNjz 41-55-9610Cpytziuqr [Mass/Vol]2.0 mg/dLNormal1.9-2.7 [facility] CenterComment on above:Performed By: #### [id number] #### [facility] ([facility]) [address] [place] [address]BUOVXVLNTIhk 47-56-5961Sbkkjxbtf [Mass/Vol]2.1 mg/dLLow2.5-5.0 [facility] CenterComment on above:Performed By: #### [id number] #### [facility] ([facility]) [address] [place] [address]ZHWIK METABOLIC PANELon 68-53-9714Ifwfx gap [Moles/Vol]10 mmol/L Normal7-20UnSelect Medical Specialty Hospital - Southeast OhioComment on above:Performed By: #### [id number] #### [facility] ([facility]) [address] [place] [address]Zletriv [Mass/Vol]8.3 mg/dLLow8.6-10.3UnSelect Medical Specialty Hospital - Southeast OhioComment on above:Performed By: #### [id number] #### [facility] ([facility]) [address] [place] [address]Akyaqjfk [Moles/Vol]100 mmol/YRpgdtb49-799DfnjshbcziSelect Medical Specialty Hospital - Southeast OhioComment on above:Performed By: #### [id number] #### [facility] ([facility]) [address] [place] [address]MB1 [Moles/Vol]26 mmol/WOjqmdv87-72CxrwaaowwvSelect Medical Specialty Hospital - Southeast OhioComment on above:Performed By: #### [id number] #### [facility] ([facility]) [address] [place] [address]Blufgjjamy [Mass/Vol]0.64 mg/dLLow0.70-1.30UnSelect Medical Specialty Hospital - Southeast OhioComment on above:Performed By: #### [id number] #### [facility] ([facility]) [address] [place] [address]IICHYEXDEK FILTRATION RATE ML/MIN/1.73 SQ M.AJLUGFLKX68.9 mL/min/1.73m*2Normal>60.0UnSelect Medical Specialty Hospital - Southeast OhioComment on above: Result Comment: The [facility]???s estimated glomerular filtration rate (eGFR) will no [...] potential consequences that do not disproportionately affect anyone group of individuals.Performed By: #### [id number] #### [facility] ([facility]) [address] [place], [place] [address]Pioogbn [Mass/Vol]117 mg/fQAqqs97-504IqocpgbwvySelect Medical Specialty Hospital - Southeast OhioComment on above:Performed By: #### [id number] #### [facility] ([facility]) [address] [place], [place] [address]Mjagijeph [Moles/Vol]3.9 mmol/LNormal3.5-5.1UnSelect Medical Specialty Hospital - Southeast OhioComment on above:Performed By: #### [id number] #### [facility] ([facility]) [address] [place], [place] [address]Cvlbxk [Moles/Vol]132 mmol/KZrz835-181NpibvdsolmSelect Medical Specialty Hospital - Southeast OhioComment on above:Performed By: #### [id number] #### [facility] ([facility]) [address] [place], [place] [address]Zhix nitrogen [Mass/Vol]30 mg/dLHigh7-25UnSelect Medical Specialty Hospital - Southeast OhioComment on above:Performed By: #### [id number] #### [facility] ([facility]) [address] [place], [place] [address]WHFG NITROGEN/CREATININE (MASS RATIO) IN SER/PLAS46.9Normal [facility] Medical CenterComment on above:Performed By: #### [id number] #### [facility] ([facility]) [address] [place] [id number] 54-07-9687Fzttsgugirb distribution width (RBC) [Ratio]16.1 %High11.5-15.0UnSelect Medical Specialty Hospital - Southeast OhioComment on above:Performed By: #### [id number] #### [facility] ([facility]) [address] [place] [id number] MEAN CORPUSCULAR HEMOGLOBIN CONCENTRATION (G/DL) BY JVEYVTXPG94.0 g/dLLow32.0-35.0UnSelect Medical Specialty Hospital - Southeast OhioComment on above:Performed By: #### [id number] #### [facility] ([facility]) [address] [place] [id number] (Bld) [Volume fraction]25.5 %Low39.0-55.0UnSelect Medical Specialty Hospital - Southeast OhioComment on above:Performed By: #### [id number] #### [facility] ([facility]) [address] [place] [id number] (Bld) [Mass/Vol]7.9 g/dLLow13.0-17.0UnSelect [facility] Specialty Hospital - Southeast OhioComment on above:Performed By: #### [id number] #### [facility] ([facility]) [address] [place] [id number] (RBC) [Entitic mass]31.1 jzFwhhbc33.0-33.0UnSelect [facility] Special[facility] Hospital - Southeast OhioComment on above:Performed By: #### [id number] #### [facility] ([facility]) [address] [place] [id number] (RBC) [Entitic vol]100.4 hGNnve07.0-98.0UnSelect [facility] Specialty Hospital - Southeast OhioComment on above:Performed By: #### [id number] #### [facility] ([facility]) [address] [place] [id number] (10*3/UL) IN BLOOD AUTOMATED [id number] 10*3/uLNormal 150-400UnSelect Medical Specialty Hospital - Southeast OhioComment on above:Performed By: #### [id number] #### [facility] ([facility]) [address] [place] [id number] (Bld) [#/Vol]2.54 10*6/uLLow4.20-5.70UnSelect Medical Specialty Hospital - Southeast OhioComment on above:Performed By: #### [id number] #### [facility] ([facility]) [address] [place] [id number] (Bld) [#/Vol]10.82 10*3/uLHigh4.00-10.60UnSelect Medical Specialty Hospital - Southeast OhioComment on above:Performed By: #### [id number] #### [facility] ([facility]) [address] [place] [id number] CULTUREon 59-12-9311LYHF STAIN RESULTNormalUniversCincinnati Shriners HospitalComment on above:Order Comment: Moderate Growth Colonies Consistent with Upper Respiratory FloraResult Comment: 10-25 Epithelial cells per low power field >25 Polys Per Low Power Field Moderate Gram positive cocci in clusters Few Gram positive cocci in chainsPerformed By: #### [id number] #### [facility] ([facility]) [address] [place] [id number] METABOLIC PANELon 99-12-4786Seuyw gap [Moles/Vol]11 mmol/L Normal7-20UnSelect Medical Specialty Hospital - Southeast OhioComment on above:Performed By: #### [id number] #### [facility] ([facility]) [address] [place] [id number] [Mass/Vol]8.7 mg/dLNormal8.6-10.3UnSelect Medical Specialty Hospital - Southeast OhioComment on above:Performed By: #### [id number] #### [facility] ([facility]) [address] [place] [id number] [Moles/Vol]100 mmol/DXartwd21-081TyowhwtldkSelect Medical Specialty Hospital - Southeast OhioComment on above:Performed By: #### [id number] #### [facility] ([facility]) [address] [place] [id number] [Moles/Vol]28 mmol/TRclsik26-71WfvsnklrdnSelect Medical Specialty Hospital - Southeast OhioComment on above:Performed By: #### [id number] #### [facility] ([facility]) [address] [place] [id number] [Mass/Vol]0.65 mg/dLLow0.70-1.30UnSelect Medical Specialty Hospital - Southeast OhioComment on above:Performed By: #### [id number] #### [facility] ([facility]) [address] [place] [id number] FILTRATION RATE ML/MIN/1.73 SQ M.EBUOEOVZH09.5 mL/min/1.73m*2Normal>60.0UnSelect Medical Specialty Hospital - Southeast OhioComment on above: Result Comment: [facility]???s estimated glomerular filtration rate (eGFR) will no [...] potential consequences that do not disproportionately affect anyone group of individuals.Performed By: #### [id number] #### [facility] ([facility]) [address] [place] [id number] [Mass/Vol]120 mg/hXNlta47-512GvymozkfboSelect Medical Specialty Hospital - Southeast OhioComment on above:Performed By: #### [id number] #### [facility] ([facility]) [address] [place] [id number] [Moles/Vol]4.6 mmol/LNormal3.5-5.1UnSelect Medical Specialty Hospital - Southeast OhioComment on above:Performed By: #### [id number] #### [facility] ([facility]) [address] [place] [id number] [Moles/Vol]134 mmol/STfq298-599XmwwuyzezrSelect Medical Specialty Hospital - Southeast OhioComment on above:Performed By: #### [id number] #### [facility] ([facility]) [address] [place], [place] [address]Cwem nitrogen [Mass/Vol]28 mg/dLHigh7-25UnSelect Medical Specialty Hospital - Southeast OhioComment on above:Performed By: #### [id number] #### [facility] ([facility]) [address] [place], [place] [address]CPFW NITROGEN/CREATININE (MASS RATIO) IN SER/PLAS43.1Normal [facility] CenterComment on above:Performed By: #### [id number] #### [facility] ([facility]) [address] [place], [place] [address]WEZzz 71-90-5921Xnyiywkbkge distribution width (RBC) [Ratio]16.3 %High11.5-15.0UnSelect Medical Specialty Hospital - Southeast OhioComment on above:Performed By: #### [id number] #### [facility] ([facility]) [address] [place], [place] [address]RNHQCHRVDKF MEAN CORPUSCULAR HEMOGLOBIN CONCENTRATION (G/DL) BY WRZHKFUBS91.9 g/dLLow32.0-35.0UnSelect [facility] Special[facility] Hospital - Southeast OhioComment on above:Performed By: #### [id number] #### [facility] ([facility]) [address] [place], [place] [address]Bbxscwqxwn (Bld) [Volume fraction]27.8 %Low39.0-55.0UnSelect Medical Specialty Hospital - Southeast OhioComment on above:Performed By: #### [id number] #### [facility] ([facility]) [address] [place], [place] [address]Nyvdsxibeq (Bld) [Mass/Vol]8.6 g/dLLow13.0-17.0UnSelect [facility] Specialty Hospital - Southeast OhioComment on above:Performed By: #### [id number] #### [facility] ([facility]) [address] [place], [place] [address]PPN (RBC) [Entitic mass]30.2 adLdaqka12.0-33.0UnSelect Medical Specialty Hospital - Southeast OhioComment on above:Performed By: #### [id number] #### [facility] ([facility]) [address] [place] [id number] (RBC) [Entitic vol]97.5 zMPttmkf65.0-98.0UnSelect [facility] Special[facility] Hospital - Southeast OhioComment on above:Performed By: #### [id number] #### [facility] ([facility]) [address] [place] [id number] (10*3/UL) IN BLOOD AUTOMATED [id number] 10*3/uLNormal 150-400UnSelect Medical Specialty Hospital - Southeast OhioComment on above:Performed By: #### [id number] #### [facility] ([facility]) [address] [place] [id number] (Bld) [#/Vol]2.85 10*6/uLLow4.20-5.70UnSelect [facility] Specialty Hospital - Southeast OhioComment on above:Performed By: #### [id number] #### [facility] ([facility]) [address] [place] [id number] (Bld) [#/Vol]10.51 10*3/uLNormal4.00-10.60UnSelect [facility] Special[facility] Hospital - Southeast OhioComment on above:Performed By: #### [id number] #### [facility] ([facility]) [address] [place] [id number] GUIDED PLEURA CATH INSERT (OPAL)on 37-18-3582SR GUIDED PLEURA CATH INSERT (OPAL)NormalThe MetroHealth SystemXA THORACENTESIS W/ IMAGE GUIDE (OPAL)on 37-84-5035OL THORACENTESIS W/ IMAGE GUIDE (OPAL)NormalThe [facility]aim[facility] Medical CenterroGerman Hospital SystemCBC WITH AUTO DIFFERENTIALon 61-30-4531Zqbgfafnv (Bld) [#/Vol]0.04 10*3/uL Normal0.00-0.20UnSelect [facility] Specialty Hospital - Southeast OhioComment on above:Performed By: #### [id number] #### [facility] ([facility]) [address] [place] [id number]/100 WBC (Bld)0.4 %Normal0.0-1.0UnSelect [facility] Specialty Hospital - Southeast OhioComment on above:Performed By: #### [id number] #### [facility] ([facility]) [address] [place] [id number] (Bld) [#/Vol]0.52 10*3/uLHigh0.00-0.50UnSelect Medical Specialty Hospital - Southeast OhioComment on above:Performed By: #### [id number] #### [facility] ([facility]) [address] [place] [id number]/100 WBC (Bld)4.9 %Normal0.0-6.0UnSelect [facility] Specialty Hospital - Southeast OhioComment on above:Performed By: #### [id number] #### [facility] ([facility]) [address] [place], [place] [id number] distribution width (RBC) [Ratio]16.7 %High11.5-15.0 [facility] CenterComment on above:Performed By: #### [id number] #### [facility] ([facility]) [address] [place], [place] [id number] MEAN CORPUSCULAR HEMOGLOBIN CONCENTRATION (G/DL) BY ECFGQGHXG08.5 g/dLLow32.0-35.0UnSelect [facility] Special[facility] Hospital - Southeast OhioComment on above:Performed By: #### [id number] #### [facility] ([facility]) [address] [place], [place] [id number] (Bld) [Volume fraction]32.4 %Low39.0-55.0UnSelect Medical Specialty Hospital - Southeast OhioComment on above:Performed By: #### [id number] #### [facility] ([facility]) [address] [place], [place] [id number] (Bld) [Mass/Vol]10.2 g/dLLow13.0-17.0UnSelect Medical Specialty Hospital - Southeast OhioComment on above:Performed By: #### [id number] #### [facility] ([facility]) [address] [place], [place] [id number] granulocytes (Bld) [#/Vol]0.28 10*3/uLHigh0.00-0.20 [facility] CenterComment on above:Performed By: #### [id number] #### [facility] ([facility]) [address] [place] [id number] granulocytes/100 WBC (Bld)2.6 %High0.0-1.0UnSelect Medical Specialty Hospital - Southeast OhioComment on above:Performed By: #### [id number] #### [facility] ([facility]) [address] [place] [id number] (Bld) [#/Vol]1.09 10*3/uLLow1.20-4.00UnSelect Medical Specialty Hospital - Southeast OhioComment on above:Performed By: #### [id number] #### [facility] ([facility]) [address] [place] [id number]/100 WBC (Bld)10.3 %Low20.0-45.0UnSelect [facility] Specialty Hospital - Southeast OhioComment on above:Performed By: #### [id number] #### [facility] ([facility]) [address] [place] [id number] (RBC) [Entitic mass]30.7 djTywcfg27.0-33.0UnSelect Medical Specialty Hospital - Southeast OhioComment on above:Performed By: #### [id number] #### [facility] ([facility]) [address] [place] [id number] (RBC) [Entitic vol]97.6 pSAxhesy61.0-98.0UnSelect [facility] Special[facility] Hospital - Southeast OhioComment on above:Performed By: #### [id number] #### [facility] ([facility]) [address] [place] [id number] (Bld) [#/Vol]0.80 10*3/uLNormal0.10-1.00UnSelect [facility] Specialty Hospital - Southeast OhioComment on above:Performed By: #### [id number] #### [facility] ([facility]) [address] [place] [id number]/100 WBC (Bld)7.5 %Normal5.0-12.0UnSelect Medical Specialty Hospital - Southeast OhioComment on above:Performed By: #### [id number] #### [facility] ([facility]) [address] [place] [address]Rivgtguouez (Bld) [#/Vol]7.88 10*3/uLHigh1.60-7.60UnSelect [facility] Special[facility] Hospital - Southeast OhioComment on above:Performed By: #### [id number] #### [facility] ([facility]) [address] [place] [address]Lqrmunlxdit/100 WBC (Bld)74.3 %High40.0-72.0UnSelect Medical Specialty Hospital - Southeast OhioComment on above:Performed By: #### [id number] #### [facility] ([facility]) [address] [place] [address]ATUZ (PER 100 WBCS) BY AUTOMATED COUNT0.0 %Psajiz1RinwlpjqphSelect Medical Specialty Hospital - Southeast OhioComment on above:Performed By: #### [id number] #### [facility] ([facility]) [address] [place], [place] [address]JCGZFVZDW (10*3/UL) IN BLOOD AUTOMATED [id number] 10*3/uLNormal 150-400UnSelect Medical Specialty Hospital - Southeast OhioComment on above:Performed By: #### [id number] #### [facility] ([facility]) [address] [place], [place] [address]PSA (Bld) [#/Vol]3.32 10*6/uLLow4.20-5.70UnSelect Medical Specialty Hospital - Southeast OhioComment on above:Performed By: #### [id number] #### [facility] ([facility]) [address] [place], [place] [address]KRN (Bld) [#/Vol]10.61 10*3/uLHigh4.00-10.60UnSelect [facility] Specialty Hospital - Southeast OhioComment on above:Performed By: #### [id number] #### [facility] ([facility]) [address] [place], [place] [address]KVEUUPSCTTTSQ METABOLIC PANELon 46-47-0227Wqfhzmn [Mass/Vol]2.9 g/dLLow3.5-5.7UnSelect Medical Specialty Hospital - Southeast OhioComment on above:Performed By: #### [id number] #### [facility] ([facility]) [address] [place], [place] [address]QIO [Catalytic activity/Vol]150 U/BUtrz57-635YpslzuqrbiSelect Medical Specialty Hospital - Southeast OhioComment on above:Performed By: #### [id number] #### [facility] ([facility]) [address] [place], [place] [address]ZXN [Catalytic activity/Vol]17 U/LNormal7-52UnSelect Medical Specialty Hospital - Southeast OhioComment on above:Performed By: #### [id number] #### [facility] ([facility]) [address] [place], [place] [address]Oxrgk gap [Moles/Vol]8 mmol/LNormal7-20UnSelect Medical Specialty Hospital - Southeast OhioComment on above:Performed By: #### [id number] #### [facility] ([facility]) [address] [place], [place] [address]XTM [Catalytic activity/Vol]19 U/APnlyiv72-97RzgznslzzjSelect Medical Specialty Hospital - Southeast OhioComment on above:Performed By: #### [id number] #### [facility] ([facility]) [address] [place], [place] [address]Esloxmsbx [Mass/Vol]0.5 mg/dLNormal0.3-1.0UnSelect Medical Specialty Hospital - Southeast OhioComment on above:Performed By: #### [id number] #### [facility] ([facility]) [address] [place], [place] [address]Jpwdwoa [Mass/Vol]8.3 mg/dLLow8.6-10.3UnSelect Medical Specialty Hospital - Southeast OhioComment on above:Performed By: #### [id number] #### [facility] ([facility]) [address] [place], [place] [address]Szpkkhcf [Moles/Vol]100 mmol/RIctwmz47-255EscuyxtevbSelect Medical Specialty Hospital - Southeast OhioComment on above:Performed By: #### [id number] #### [facility] ([facility] [facility] [address] [place] [address]LY3 [Moles/Vol]30 mmol/BJvvexs94-79HskmpabwisSelect Medical Specialty Hospital - Southeast OhioComment on above:Performed By: #### [id number] #### [facility] ([facility]) [address] [place] [address]Lwngsjaire [Mass/Vol]0.78 mg/dLNormal0.70-1.30UnSelect Medical Specialty Hospital - Southeast OhioComment on above:Performed By: #### LAB17 #### [facility] ([facility]) [address] [place] [id number] FILTRATION RATE ML/MIN/1.73 SQ M.PWROBSJQJ24.5 mL/min/1.73m*2Normal>60.0UnSelect Medical Specialty Hospital - Southeast OhioComment on above: Result Comment: The [facility]???s estimated glomerular filtration rate (eGFR) will no [...] potential consequences that do not disproportionately affect anyone group of individuals.Performed By: #### LAB17 #### [facility] ([facility]) [address] [place] [id number] [Mass/Vol]109 mg/oRImui43-182BadbxvkmruSelect Medical Specialty Hospital - Southeast OhioComment on above:Performed By: #### LAB17 #### [facility] ([facility]) [address] [place] [address]Pyzfbpsgb [Moles/Vol]3.7 mmol/LNormal3.5-5.1UnSelect Medical Specialty Hospital - Southeast OhioComment on above:Performed By: #### LAB17 #### [facility] ([facility]) [address], [place] [id number] [Mass/Vol]5.5 g/dLLow6.0-8.3UnSelect Medical Specialty Hospital - Southeast OhioComment on above:Performed By: #### LAB17 #### [facility] ([facility]) [address] [facility] [place], [place] [address]Qjukak [Moles/Vol]134 mmol/PZlm536-476IxqjtvjbcdSelect Medical Specialty Hospital - Southeast OhioComment on above:Performed By: #### LAB17 #### [facility] ([facility]) [address] [place], [place] [address]Luvq nitrogen [Mass/Vol]29 mg/dLHigh7-25UnSelect Medical Specialty Hospital - Southeast OhioComment on above:Performed By: #### LAB17 #### [facility] ([facility]) [address] [place], [place] [address]OMPF NITROGEN/CREATININE (MASS RATIO) IN SER/PLAS37.2Normal [facility] CenterComment on above:Performed By: #### LAB17 #### [facility] ([facility]) [address] [place], [place] [address]IKTZZAGTBnu 56-13-0690Jmklhqmux [Mass/Vol]2.0 mg/dLNormal1.9-2.7 [facility] CenterComment on above:Performed By: #### [id number] #### [facility] ([facility]) [address] [place], [place] [address]ASMNJAOTWIed 89-62-9506Wpcahelbc [Mass/Vol]2.7 mg/dLNormal 2.5-5.0UnSelect Medical Specialty Hospital - Southeast OhioComment on above:Performed By: #### LAB15 #### [facility] ([facility]) [address] [place], [place] [address]TFQH FXA-LMW HEPARINon 65-66-5559LECC FXA-LMW HEPARIN ASSAY0.26 IU/mLNormalThe [facility] CenterroHealth SystemComment on above:Order Comment: The recommended therapeutic range for treatment of thrombosis with Low Molecular Weight Heparin is 0.5 - 1.0 IU/mLThe recommended range for VTE prophylaxis with Low Molecular Weight Heparin is 0.2 - 0.4 IU/mL.Performed By: #### ANGELINA ####[facility] AHEMRUCUAA5375 [place], [address]RLXZG METABOLIC PANELon 42-68-0994Pvtjy gap [Moles/Vol]12 mmol/LDzilwk90-06Wbd [facility] Comment on above:Performed By: #### PHOS MG, CH8 ####[facility] OBPTDXHOAM8784 [place], [address]Jliylae [Mass/Vol]8.4 mg/dLLow8.6-10.3The [facility] CenterHealth SystemComment on above:Performed By: #### PHOS, MG, CH8 ####[facility] QILUQRSTMH0414 [place], [place], [address] Chloride [Moles/Vol]97 mmol/WZvp84-500Nvh [facility] SystemComment on above:Performed By: #### PHOS, MG, CH8 ####[facility] HOBBHWHUVV0466 [place], [address]TV1 [Moles/Vol]29 mmol/OTgfvzw00-70Obd [facility] SystemComment on above:Performed By: #### PHOS, MG, CH8 ####[facility] WRHFCNVZSS2029 [place], [address]Toydadeqyq [Mass/Vol]0.58 mg/dLLow0.70-1.30The [facility] SystemComment on above:Performed By: #### PHOS, MG, CH8 ####[facility] WGZCSRLYEG9551 [place], [address]IQUGGEFRG GFR (CKD-EPI)97 mL/min/1.73sqmNormal>=60 The [facility] SystemComment on above:Result Comment: 2020 CKD EPI Equation using Creatinine without RaceComment: Estimated glomerular filtration rate (eGFR) is calculated without a race coefficient. Values should be interpreted in the context of the patient's full clinical presentation.Reference:1. Rishi Jose, Jorge M, Nic SILVA, et al.. A Unifying Approach for GFR Estimation: Recommendations of the NKF-ASN Task Force on Reassessing the Inclusion of Race in Diagnosing Kidney Disease. [place] Islander Journal of Kidney Diseases 2021;79(2):26 8-88.e1.2. N Engl J Med 2020 Vol. 385 Issue 19 Pages 4040-4275Performed By: ###MG GAGE CH8 ####S PATHOLOGY UZYBZFATSV3690 [place], [address]Mpfmyeb [Mass/Vol]104 mg/wPYczkca32-381Cbx [facility] CenterroHealth SystemComment on above:Performed By: #### MG CHI, LLOYD8 ####S PATHOLOGY HMFPIAARNX5020 [place], [address]Yvdsrjytb [Moles/Vol]4.1 mmol/LNormal 3.5-5.0The [facility] CenterroHealth SystemComment on above:Performed By: ###MG GAGE CH8 ####S PATHOLOGY NSLIFSCSCA9076 [place], [place], Sodium [Moles/Vol]134 mmol/GLyp490-409Buz [facility] CenterroHealth SystemComment on above: Performed By: #### MG MIRELES CH8 ####S PATHOLOGY HGUVRKKUGG7956 [place], [address]Gijx nitrogen [Mass/Vol]22 mg/dLNormal7-25The [facility] CenterroHealth SystemComment on above:Performed By: #### MG CHI, LLOYD8 ####S PATHOLOGY YDGSHCEEPZ2844 [place], [address]MNSTIDVZ BLOOD COUNTon 29-22-8742Kgjhxfgngog distribution width (RBC) [Ratio]16.9 %High 11.5-14.5The [facility] CenterHealth SystemComment on above:Performed By: #### CBC ####S PATHOLOGY QWPBFPNDUM7441 [place], [address]Xazmuoshyy (Bld) [Volume fraction]33.8 %Low41.0-53.0The [facility] CenterroHealth SystemComment on above: Performed By: #### CBC ####S PATHOLOGY HPVGOLQBJM[address] [place] [address], [address]Hpudljolmg (Bld) [Mass/Vol]11.4 g/dLLow13.9-16.3 The [facility] CenterroHealth SystemComment on above:Performed By: #### CBC ####[facility] PATHOLOGY VSFRETLIXI5300 [place], [address]OIT (RBC) [Entitic mass]31.5 nfOgddmi90.0-34.0The [facility] CenterroHealth SystemComment on above:Performed By: #### CBC ####[facility] PATHOLOGY WVEMUGEYTK2638 [place], [address]ECPC (RBC) [Mass/Vol]33.8 g/dIPavmby49.0-35.9The [facility] System Comment on above:Performed By: #### CBC ####[facility] PATHOLOGY NZDBUIJUBW8698 [place], [address]TFU (RBC) [Entitic vol]93 fLNormal 80-100The [facility] CenterroHealth SystemComment on above:Performed By: #### CBC ####[facility] PATHOLOGY BURCZSTRRN[address] [place] [address], [address]Bzpdkdqi mean volume (Bld) [Entitic vol]7.2 fLLow7.5-11.2The [facility] CenterroHealth SystemComment on above:Performed By: #### CBC ####[facility] PATHOLOGY MAWITACHFW[address] [place] [address], [address]Euabnehoe (Bld) [#/Vol]354 10*3/qIYfgxat426-572Dhb [facility] CenterHealth SystemComment on above:Performed By: #### CBC ####[facility] PATHOLOGY UIUPDJAVVH[address] [place] [address], [address]VKV (Bld) [#/Vol]3.62 10*6/uLLow4.50-5.90The [facility] CenterroHealth SystemComment on above:Performed By: #### CBC ####[facility] PATHOLOGY CQTEXIYKGG[address] [place] [address], [address]TOH (Bld) [#/Vol]9.4 10*3/uLNormal4.5-11.5The [facility] CenterHealth SystemComment on above: Performed By: #### CBC ####[facility] PATHOLOGY WGZXGNZQVA[address] [place] [address], [address]Lesxqphjel 13-98-7139Wakeaneqnoznz Authentication Interface Message TextNormCleveland Clinic [facility] SystemDischarge Planning Noteon 18-11-5771Dwkxyjfhuujul Authentication Interface Message TextNormCleveland Clinic [facility]st [facility] SystemMAGNESIUMon 75-26-5429Jjzjupypm [Mass/Vol]2.0 mg/dLNormal 1.9-2.7The [facility] SystemComment on above:Performed By: #### MG CHI, LLOYD8 ####[facility] QOAIGVSHHO0157 [place], [place], PHOSPHORUSon 78-26-7972Qdxrzujef [Mass/Vol]2.4 mg/dLLow2.5-5.0The [facility] SystemComment on above:Performed By: #### MG CHI, LLOYD8 ####[facility] UUJAIYBUBR6693 [place], [address]Iuwvirxx Noteson 00-68-5813Uvutqlvishyzm Authentication Interface Message TextNoC[facility] SystemTranscription Authentication Interface Message TextNoC[facility] SystemTranscription Authentication Interface Message TextNoC[facility] SystemXR CHEST AP OR PA 1 VIEWon 37-91-1051YM CHEST AP OR PA 1 VIEW NormalThe [facility] CenterroGerman [facility] SystemXR CHEST AP OR PA 1 VIEWNormCleveland Clinic Hill[facility]st [facility] System XR Chest Single viewon 67-11-0892WGUSXHCKHAW: XR CHEST AP OR PA 1 VIEW [...] fluid in the pleural fissures. MACRO: None Gerber Fox, DO - 06/10/2024 EXAMINATION: XR CHEST AP [...] fluid in the pleural fissures. MACRO: None [facility]Rad[facility] Study observation (narrative)[facility]HealthXR Chest Single viewOrdered By: Gerber Mcdaniel on 11-26-6854VsvmvTdtnbm Work Phone: bASIC METABOLIC PANELon 22-41-3583Wgwyq gap [Moles/Vol]13 mmol/INqifny55-54Dci [facility] CenterHealth SystemComment on above:Performed By: #### MG AMMON, CHI ####[facility] DKBFIKDDWE0461 [place], [address]Ehnwnii [Mass/Vol]8.2 mg/dLLow8.6-10.3The [facility] CenterroHealth SystemComment on above:Performed By: #### MG AMMON, PHOS ####[facility] OMJBHXDEYX9503 [place], [address]Ovzntikv [Moles/Vol]95 mmol/OPfa98-737Tpv [facility] SystemComment on above:Performed By: #### MG AMMON, RADS ####[facility] WSOAFREVUR4312 [place], [address]TD2 [Moles/Vol]30 mmol/OJisyul01-66Lrp [facility] CenterHealth SystemComment on above:Performed By: #### MG AMMON, PHOS ####[facility] PATH[facility] ELAZQVSGNZ4271 [place], [address]Soyswuvooi [Mass/Vol] 0.49 mg/dLLow0.70-1.30The [facility] CenterHealth SystemComment on above:Performed By: #### MG AMMON, PHOS ####S PATHOLOGY CSBUSRLLNG9460 [place], [address]EMZWHYNKV GFR (CKD-EPI)102 mL/min/1.73sqmNormal>=60The [facility] SystemComment on above:Result Comment: 2020 CKD EPI Equation using Creatinine without RaceComment: Estimated glomerular filtration rate (eGFR) is calculated without a race coefficient. Values should be interpreted in the context of the patient's full clinical presentation.Reference:1. Rishi C, Jorge M, Nic SILVA, et al.. A Unifying Approach for GFR Estimation: Recommendations of the NKF-ASN Task Force on Reassessing the Inclusion of Race in Diagnosing Kidney Disease. [place] Journal of Kidney Diseases 202;79(2):268-88.e1.2. N Engl J Med 1 Vol. 385 Issue 19 Pages 1221-4556Performed By: #### CH8, MG, PHOS ####S PATHOLOGY MVRWYIAXBT0663 [place], [address]Cdkqhhi [Mass/Vol]87 mg/fKWtwhpi35-179Isz [facility] CenterroHealth SystemComment on above:Performed By: #### AMMON MG, PHOS ####S PATHOLOGY PWDIZFNOHV8489 [place], [address]Ioqkablil [Moles/Vol]3.2 mmol/LLow3.5-5.0The [facility] CenterHealth SystemComment on above:Performed By: #### CH8, MG, PHOS ####S PATHOLOGY EPPYOGYOJR8202 [place], [address]Pialiy [Moles/Vol]135 mmol/TIds941-846Plz [facility] SystemComment on above:Performed By: #### AMMON MG, PHOS ####S PATHOLOGY AQQACNXUJO[address] [place] [address], [address]Ftqs nitrogen [Mass/Vol]14 mg/dLNormal7-25The [facility] CenterHealth SystemComment on above:Performed By: #### AMMON MG, PHOS ####[facility] PATHOLOGY GNSXBKXKOV[address] [place] [address], [address]PPYMWKLK BLOOD COUNTon 14-62-5752Ioltsmzqaao distribution width (RBC) [Ratio]17.6 %High 11.5-14.5The [facility] SystemComment on above:Performed By: #### CBC ####S PATHOLOGY HKZAYMTARG1556 [place], [address]Ibfnduwrde (Bld) [Volume fraction]31.4 %Low41.0-53.0The [facility] SystemComment on above: Performed By: #### CBC ####S PATHOLOGY TULDFEYNKR[address] [place] [address], [address]Mlrhjpeydi (Bld) [Mass/Vol]10.5 g/dLLow13.9-16.3 The [facility] SystemComment on above:Performed By: #### CBC ####S PATHOLOGY NDBGTGCMVS[address] [place] [address], [address]TQQ (RBC) [Entitic mass]31.1 neZbqkje80.0-34.0The [facility] CenterroHealth SystemComment on above:Performed By: #### CBC ####[facility] PATHOLOGY YLYGAPBXFY[address] [place] [address], [address]VUFF (RBC) [Mass/Vol]33.3 g/fWWopynu60.0-35.9The [facility] System Comment on above:Performed By: #### CBC ####[facility] PATHOLOGY BYPUIPWLPU0[address] [place] [address], [address]ZXC (RBC) [Entitic vol]94 fLNormal 80-100The [facility] CenterHealth SystemComment on above:Performed By: #### CBC ####[facility] PATHOLOGY MCOPOWIREX[address] [place] [address], [address]Txgnptdw mean volume (Bld) [Entitic vol]7.2 fLLow7.5-11.2The [facility] CenterHealth SystemComment on above:Performed By: #### CBC ####[facility] PATHOLOGY IUYUVPQJVX59[address] [place] [address], [address]Oqiccsobq (Bld) [#/Vol]331 10*3/yJGicjxh788-047Fub [facility] SystemComment on above:Performed By: #### CBC ####[facility] PATHOLOGY NLFEWKHSJY[address] [place] [address], [address]FLK (Bld) [#/Vol]3.36 10*6/uLLow4.50-5.90The [facility] SystemComment on above:Performed By: #### CBC ####[facility] PATHOLOGY SOOYUCJPWU3[address] [place] [address], [address]TRH (Bld) [#/Vol]7.2 10*3/uLNormal4.5-11.5The [facility] SystemComment on above: Performed By: #### CBC ####[facility] PATHOLOGY CITEESINSI[address] [place] [address], [address]Xfyczsljul 80-24-9979Nxknoxemynahs Authentication Interface Message TextNormalThe [facility] SystemMAGNESIUMon 06-09-2024 Magnesium [Mass/Vol]1.6 mg/dLLow1.9-2.7The [facility] SystemComment on above: Performed By: #### LLOYD8MG, CHI ####[facility] JDJDKFTWUU7418 [place], [address]CFYBOJYPUZgr 13-83-6278Lfdpnqjjy [Mass/Vol]3.1 mg/dLNormal2.5-5.0The [facility] SystemComment on above:Performed By: #### CH8, MG, PHOS ####[facility] PATH[facility] BDDOCDAHPK8091 [place], [place], [address]Progress Noteson 62-30-0467Guqvurpwcnfzn Authentication Interface Message TextNoCritical access hospitalMatch Point Partners SystemTranscription Authentication Interface Message TextNoCritical access hospitalMatch Point Partners SystemXR CHEST AP OR PA 1 VIEWon 67-88-5798DS CHEST AP OR PA 1 VIEWNormMorrow County HospitalVivotech [facility] CenterroMatch Point Partners SystemXR Chest Single viewon 25-87-8236AOMEIEQTBBR: XR CHEST AP OR PA 1 VIEW [...] catheter may be kinked at the skin entrancesite however there is no pleural effusion or pneumothorax visible. MACRO: None Micah Taylor MD - 06/09/2024 EXAMINATION: XR CHEST AP OR PA 1 VIEW 06/09/2024 06:43 AM CLINICAL HISTORY: follow up exam ASSOCIATED DIAGNOSIS: follow up exam ORDERING PROVIDER: JOSE M STRAUSBAUGH TECHNOLOGISTS NOTE: COMPARISON: XR CHEST AP OR [...] catheter may be kinked at the skin entrancesite however there is no pleural effusion or pneumothorax visible. MACRO: None [facility]Rad[facility] Study observation (narrative)[facility]XR Chest Single viewOrdered By: Micah Lynne on 40-93-1984JgweoQhhzri Work Phone: bASIC METABOLIC PANELon 28-88-6997Mwjbu gap [Moles/Vol]11 mmol/WUguvlf63-78Fzg [facility] SystemComment on above:Performed By: #### MG VERDE PHOS ####[facility] PATH[facility] HABMQHJHBV3852 [place], [address]Dokguca [Mass/Vol]8.5 mg/dLLow8.6-10.3The [facility] SystemComment on above:Performed By: #### MG VERDE PHOS ####[facility] PATHOLOGY GBRTXAPFXU8322 [place], [address]Ysrwpivj [Moles/Vol]98 mmol/NGnzrvp23-864Mww [facility] CenterroGerman Hospital SystemComment on above:Performed By: #### MG AMMON PHOAlfonzo ####[facility] PATH[facility]Y WILCJLLMBE0881 [place], [address]ZT7 [Moles/Vol]31 mmol/UPpztkl84-30Wjh [facility] CenterroHealth SystemComment on above:Performed By: #### MG AMMON PHOS ####[facility] PATH[facility]Y YTAWGBFOZR9205 [place], [address]Mxxtrkypah [Mass/Vol] 0.44 mg/dLLow0.70-1.30The [facility] CenterroHealth SystemComment on above:Performed By: ###MG BENAVIDES PHOS ####[facility] PATHOLOGY ZKWSMIWPLN6277 [place], [address]FVVWZRZCY GFR (CKD-EPI)105 mL/min/1.73sqmNormal>=60The [facility] CenterHealth SystemComment on above:Result Comment: 2020 CKD EPI Equation using Creatinine without RaceComment: Estimated glomerular filtration rate (eGFR) is calculated without a race coefficient. Values should be interpreted in the context of the patient's full clinical presentation.Reference:1. Rishi C, Jorge M, Nic SILVA, et al.. A Unifying Approach for GFR Estimation: Recommendations of the NKF-ASN Task Force on Reassessing the Inclusion of Race in Diagnosing Kidney Disease. [place] Journal of Kidney Diseases 2021;79(2):268-88.e1.2. N Engl J Med 2020 Vol. 385 Issue 19 Pages 7407-7713Performed By: ###MG BENAVIDES PHOS ####S PATHOLOGY VUCJEPYDXZ1615 [place], [address]Exahhkj [Mass/Vol]104 mg/mTGlhkcl27-552Gkg [facility] CenterroHealth SystemComment on above:Performed By: ##MG GREY PHOS ####[facility] PATH[facility] QWOKJPYDEZ3470 [place], [address]Unlaxrrmt [Moles/Vol]3.2 mmol/LLow3.5-5.0The [facility] CenterroGerman Hospital SystemComment on above:Performed By: ##MG GREY PHOS ####[facility] PATHOLOGY OOCWMESZTJ6219 [place], [address]Daraoo [Moles/Vol]137 mmol/TGkyqis356-947Tpb [facility] CenterroHealth SystemComment on above: Performed By: #MG BRYAN PHOS ####[facility] PATHOLOGY RANTUYOGQW6212 [place], [address]Ggwg nitrogen [Mass/Vol]16 mg/dLNormal7-25The [facility] CenterHealth SystemComment on above:Performed By: ###MG BENAVIDES PHOS ####[facility] PATHOLOGY FWCOYTKZHY9436 [place], [address]SGYERCPW BLOOD COUNTon 08-14-2982Tdghygrtymy distribution width (RBC) [Ratio]17.1 %High 11.5-14.5The [facility] CenterHealth SystemComment on above:Performed By: #### CBC ####[facility] PATHOLOGY XFQOVIKHLI[address] [place] [address], [address]Kvfvuvsdvz (Bld) [Volume fraction]30.1 %Low41.0-53.0The [facility] CenterHealth SystemComment on above: Performed By: #### CBC ####[facility] PATHOLOGY CPQSZGESJP8534[address] [place] [address], [address]Wgiwvpawdt (Bld) [Mass/Vol]9.9 g/dLLow13.9-16.3The [facility] CenterroHealth SystemComment on above:Performed By: #### CBC ####[facility] PATHOLOGY WOONWEAMDY88[address] [place] [address], [address]NCX (RBC) [Entitic mass]30.6 waFsthpa72.0-34.0The [facility] CenterHealth SystemComment on above:Performed By: #### CBC ####[facility] PATHOLOGY VANGBSENHI7[address] [place] [address], [address]HZDF (RBC) [Mass/Vol]33.0 g/eFJzhklx23.0-35.9The [facility] System Comment on above:Performed By: #### CBC ####[facility] PATHOLOGY AJCBBJXAZU75[address] [place] [address], [address]PLW (RBC) [Entitic vol]93 fLNormal 80-100The [facility] SystemComment on above:Performed By: #### CBC ####[facility] PATHOLOGY XPKPCPNPJU7043[address] [place] [address], [address]Jqzzybrw mean volume (Bld) [Entitic vol]7.0 fLLow7.5-11.2The [facility] SystemComment on above:Performed By: #### CBC ####[facility] PATHOLOGY IIAUIOQBFB1538[address] [place] [address], [address]Fafccwxey (Bld) [#/Vol]370 10*3/vYVuvpsa879-642Ifp [facility] SystemComment on above:Performed By: #### CBC ####[facility] PATH[facility] BGVMEQFTWS3369 [place], [address]SRU (Bld) [#/Vol]3.24 10*6/uLLow4.50-5.90The [facility] SystemComment on above:Performed By: #### CBC ####[facility] PATH[facility] WXPHHMDGGR[address] [place] [address], [address]KBK (Bld) [#/Vol]5.8 10*3/uLNormal4.5-11.5The [facility] SystemComment on above: Performed By: #### CBC ####S PATHOLOGY OVOZGCHISP[address] [place] [address], [address]Gbxahqlqka 58-18-3284Jhyljeycovzdm Authentication Interface Message TextNoC[facility] SystemTranscription Authentication Interface Message TextNoC[facility] SystemMAGNESIUMon 06-08-2024 Magnesium [Mass/Vol]1.9 mg/dLNormal1.9-2.7The [facility] SystemComment on above:Performed By: #### CH8, MG, PHOS ####[facility] PATH[facility] NQLKABLTOX[address] [place] [address], [address]ZWNWLRKVPAen 99-37-3563Dvfqchsxk [Mass/Vol]2.5 mg/dLNormal2.5-5.0The [facility] SystemComment on above:Performed By: #### CH8, MG, PHOS ####[facility] PATH[facility] HUJZXVACCB[address] [place] [address], [address]Xige-Hrabsxpwt Noteon 22-00-3275Dauiqrvhspoue Authentication Interface Message TextNormWellmont Health SystemroGerman Hospital SystemPre-Procedure Noteon 78-32-5102Dgjthsixtncyy Authentication Interface Message TextNormC[facility] SystemProgress Noteson 84-88-1385Zkwnkknnceyhi Authentication Interface Message TextNormC[facility] SystemTranscription Authentication Interface Message TextNormWellmont Health SystemroHealth SystemXR CHEST AP OR PA 1 VIEWon 00-68-9568FT CHEST AP OR PA 1 VIEWNormalThe [facility] SystemXR CHEST AP OR PA 1 VIEWNormalThe [facility] SystemXR Chest Single viewon 96-92-9012JOCGNXHCQPQ: XR CHEST AP OR PA 1 VIEW 06/08/2024 07:06 AM CLINICAL HISTORY: Endotracheal tube assessment ASSOCIATED DIAGNOSIS: Endotracheal tube assessment ORDERING PROVIDER: MALIK RAMOS TECHNOLOGISTS NOTE: COMPARISON: XR CHEST AP OR PA 1 VIEW 06/05/2024, 9:27 AM XR CHEST AP OR PA 1 VIEW 06/04/2024, 6:13 AMXR CHEST AP OR PA 1 VIEW 06/03/2024, [...] screws. 2. Mild bibasilar atelectasis. MACRO: None Micah Taylor MD - 06/08/2024 EXAMINATION: XR CHEST AP OR PA 1 VIEW 06/08/2024 07:06 AM CLINICAL HISTORY: Endotracheal tube assessment ASSOCIATED DIAGNOSIS: Endotracheal tube assessment ORDERING PROVIDER: MALIK RAMOS TECHNOLOGISTS NOTE: COMPARISON: XR CHEST AP OR PA 1 VIEW 06/05/2024, 9:27 AM XR CHEST AP OR PA 1 VIEW 06/04/2024, 6:13 AMXR CHEST AP OR PA 1 VIEW 06/03/2024, [...] screws. 2. Mild bibasilar atelectasis. MACRO: None [facility] Single viewOrdered By: Micah Lynne on [id number] Work Phone: bASIC METABOLIC PANELon [id number] gap [Moles/Vol]14 mmol/APbitkv01-83Ldb [facility] CenterHealth SystemComment on above:Performed By: #### MG CH8, PHOS ####[facility] [id number] [place], [address]Pzqpatf [Mass/Vol]8.1 mg/dLLow8.6-10.3The [facility] CenterroGerman Hospital SystemComment on above:Performed By: #### MG, CH8, PHOS ####[facility] [id number] [place], [address]Odmoksdo [Moles/Vol]102 mmol/BZvlmuk49-806Eyf [facility] SystemComment on above: Performed By: #### MG, CH8, PHOS ####[facility] MJYEYAJUWT0551 [place], [address]EC0 [Moles/Vol]29 mmol/CNevfnt88-15Xpo [facility] CenterroHealth SystemComment on above:Performed By: #### MG, CH8, PHOS ####[facility] PATH[facility] BTWTASFQYC3388 [place], [address]Yqahnfahqh [Mass/Vol] 0.55 mg/dLLow0.70-1.30The [facility]ro[facility] SystemComment on above:Performed By: #### MG, CH8, PHOS ####[facility] PATH[facility] XEAVZYLNOF0885 [place], [address]UOHXWSSMJ GFR (CKD-EPI)98 mL/min/1.73sqmNormal>=60The [facility] SystemComment on above:Result Comment: 2020 CKD EPI Equation using Creatinine without RaceComment: Estimated glomerular filtration rate (eGFR) is calculated without a race coefficient. Values should be interpreted in the context of the patient's full clinical presentation.Reference:1. Rishi C, Jorge M, Nic SILVA, et al.. A Unifying Approach for GFR Estimation: Recommendations of the NKF-ASN Task Force on Reassessing the Inclusion of Race in Diagnosing Kidney Disease. [place] Islander Journal of Kidney Diseases 2021;79(2):268-88.e1.2. N Engl J Med 2020 Vol. 385 Issue 19 Pages 4922-5692Performed By: #### AMMON PRADO PHOS ####[facility] PATH[facility] IJPFJIHHOJ4630 [place], [address]Avozhzy [Mass/Vol]84 mg/kKFhmuxa14-715Mtk [facility] SystemComment on above:Performed By: #### AMMON PRADO PHOS ####[facility] PATHOLOGY JUTMQUDGEC9658 [place], [address]Halsoxevj [Moles/Vol]3.5 mmol/LNormal3.5-5.0The [facility] CenterroHealth SystemComment on above:Performed By: #### AMMON PRADO PHOS ####S PATHOLOGY ZBGGRCPYFQ[address] [place] [address], [address]Dpfmxu [Moles/Vol]141 mmol/WTszfzo438-704Ijl [facility] CenterroHealth SystemComment on above: Performed By: #### AMMON PRADO PHOS ####[facility] PATH[facility]Y KGFTOUOEOM4095 [place], [address]Pjan nitrogen [Mass/Vol]13 mg/dLNormal7-25The [facility] CenterroHealth SystemComment on above:Performed By: #### AMMON PRADO PHOS ####S PATHOLOGY AWMJXAYAZT3239 [place], [address]KDUCSBXC BLOOD COUNTon 37-00-7160Jpqywkshesl distribution width (RBC) [Ratio]17.3 %High 11.5-14.5The [facility] CenterroHealth SystemComment on above:Performed By: #### CBC ####[facility] PATH[facility] KNMAECXOOJ[address] [place] [address], [address]Ldkeynsiyx (Bld) [Volume fraction]28.2 %Low41.0-53.0The [facility] CenterroHealth SystemComment on above: Performed By: #### CBC ####[facility] QHYUXENUAA3836 [place], [address]Franpeizgv (Bld) [Mass/Vol]9.7 g/dLLow13.9-16.3The [facility] CenterroHealth SystemComment on above:Performed By: #### CBC ####[facility] PATHOLOGY TCEMWFGKVP[address] [place] [address], [address]KED (RBC) [Entitic mass]32.0 yvSumzne88.0-34.0The [facility] CenterroHealth SystemComment on above:Performed By: #### CBC ####[facility] PATHOLOGY ADNJZLIZNA[address] [place] [address], [address]WZNV (RBC) [Mass/Vol]34.3 g/oFYsbjsn76.0-35.9The [facility] System Comment on above:Performed By: #### CBC ####[facility] PATHOLOGY KAKPHRKJXR7[address] [place] [address], [address]YXA (RBC) [Entitic vol]93 fLNormal 80-100The [facility] CenterroHealth SystemComment on above:Performed By: #### CBC ####[facility] PATHOLOGY NDIGVREUWE[address] [place] [address], [address]Mmwpznzn mean volume (Bld) [Entitic vol]7.3 fLLow7.5-11.2The [facility] CenterroHealth SystemComment on above:Performed By: #### CBC ####[facility] PATHOLOGY LKMFCRRVBA[address] [place] [address], [address]Dtrytpbma (Bld) [#/Vol]367 10*3/mRXkloiy820-967Ifp [facility] CenterroHealth SystemComment on above:Performed By: #### CBC ####[facility] PATHOLOGY KCAEJBTXPM[address] [place] [address], [address]CLV (Bld) [#/Vol]3.03 10*6/uLLow4.50-5.90The [facility] SystemComment on above:Performed By: #### CBC ####[facility] PATHOLOGY BFVARSUEPB[address] [place] [address], [address]QXG (Bld) [#/Vol]6.7 10*3/uLNormal4.5-11.5The [facility] CenterroHealth SystemComment on above: Performed By: #### CBC ####S PATHOLOGY OCVXPNKGAW9933 [place], [address]TOSYQVMNKiu 24-86-8954Phnzwahen [Mass/Vol]2.1 mg/dLNormal1.9-2.7The [facility] CenterroHealth SystemComment on above:Performed By: #### MG CH8, PHOS ####S PATHOLOGY MLSENPDUDK1481 [place], [place], 44 PHOSPHORUSon 68-15-8660Njxeryzsr [Mass/Vol]2.9 mg/dLNormal2.5-5.0The [facility] CenterHealth SystemComment on above:Performed By: #### MG CH8, PHOS ####[facility] PATHOLOGY NMWOVJHABA1097 [place], [address]PWPWACXOAMH TIME AND INRon 64-76-3479AAC Coag (PPP) [Relative time]1.07 {INR}Normal0.90-1.10 The [facility] SystemComment on above:Performed By: #### PT ####S PATHOLOGY YKZSQARTXZ2011 [place], [address]JI Coag (PPP) [Time] 12.0 sNormal9.7-12.9The [facility] SystemComment on above:Performed By: #### PT ####[facility] PATHOLOGY RGCWTURUTM6150 [place], [place], Progress Noteson 63-75-5552Irhgqkqaleqha Authentication Interface Message Text NormalThe [facility] SystemTranscription Authentication Interface Message Text NormalThe [facility] SystemUS Cheston 84-87-9008MDXPMGHCQSO: US CHEST PLEURAL CAVITY 06/06/2024 11:17 PM [...] IMPRESSION: Bilateral pleural effusions. MACRO: None Randa Sosa MD - 06/07/2024 EXAMINATION: US CHEST PLEURAL CAVITY [...] lung. IMPRESSION: Bilateral pleural effusions. MACRO: None [facility] ChestOrdered By: Randa Portillo on 14-67-1498NonajIaeeza Work Phone: US PLEURAL EFFUSIONon 93-71-8091JN PLEURAL EFFUSION NormalThe [facility] CenterHiddenbed System1:1 Interactionon 50-72-0885Rfuwwtwkmdhfd Authentication Interface Message TextNormalThe [facility] CenterMatch Point Partners SystemBASIC METABOLIC PANELon 92-31-2815Tgevj gap [Moles/Vol]12 mmol/BLuawtg85-57Lmm [facility] SystemComment on above:Performed By: #### CHI MG, CH8 ####[facility] PATHOLOGY RFTFEJKFVP4902 [place], [address]Ispdcek [Mass/Vol]8.1 mg/dLLow8.6-10.3The [facility]ro[facility] SystemComment on above:Performed By: #### CHI MG, CH8 ####[facility] PATHOLOGY FGJMAEEIFZ8852 [place], [place], [address]Chloride [Moles/Vol]103 mmol/AGwmhsm85-511Uti [facility] CenterroHealth SystemComment on above:Performed By: #### CHI MG, CH8 ####[facility] PATHOLOGY MIUAXGMSQQ6651 [place], [address]YX8 [Moles/Vol]31 mmol/WOzklvn69-02Wzf [facility] SystemComment on above:Performed By: #### PHOAlfonzo MG, CH8 ####[facility] PATHOLOGY OCOLPEGUFG7388 [place], [address]Ycrvayntng [Mass/Vol]0.51 mg/dLLow0.70-1.30The [facility] SystemComment on above:Performed By: #### MG MIRELES CH8 ####[facility] PATHOLOGY HHMBNVTLIA0813 [place], [address]VIKQUIANV GFR (CKD-EPI)101 mL/min/1.73sqmNormal >=60The [facility] CenterHealth SystemComment on above:Result Comment: 2020 CKD EPI Equation using Creatinine without RaceComment: Estimated glomerular filtration rate (eGFR) is calculated without a race coefficient. Values should be interpreted in the context of the patient's full clinical presentation.Reference:1. Rishi C, Jorge M, Nic SILVA, et al.. A Unifying Approach for GFR Estimation: Recommendations of the NKF-ASN Task Force on Reassessing the Inclusion of Race in Diagnosing Kidney Disease. [place] Journal of Kidney Diseases 2021;79(2):26 8-88.e1.2. N Engl J Med 1 Vol. 385 Issue 19 Pages 4219-9069Performed By: #### MG MIRELES CH8 ####S PATHOLOGY ANBPSCJQFP2924 [place], [address]Liavhcy [Mass/Vol]84 mg/nZVgifdx80-366Hua [facility] SystemComment on above:Performed By: #### MG CHI, LLOYD8 ####[facility] PATHOLOGY KBDQVGMXKQ5222 [place], [address]Yyyxlysyj [Moles/Vol]3.1 mmol/LLow 3.5-5.0The [facility] SystemComment on above:Performed By: #### MG CHI, LLOYD8 ####[facility] PATHOLOGY CGSHKHNFYZ6068 [place], Sodium [Moles/Vol]143 mmol/WEagbtp743-904Nyf [facility] SystemComment on above: Performed By: #### MG CHI, CH8 ####[facility] PATHOLOGY OIZLTWSQOX6395 [place], [address]Dlfe nitrogen [Mass/Vol]10 mg/dLNormal7-25The [facility] CenterHealth SystemComment on above:Performed By: #### CHI, MG, CH8 ####[facility] PATHOLOGY DDKFPVSTDI[address] [place] [address], [address]ZTAUXQIQ BLOOD COUNTon 14-75-1161Aqhpwfpwhmz distribution width (RBC) [Ratio]17.5 %High 11.5-14.5The [facility] SystemComment on above:Performed By: #### CBC ####[facility] PATHOLOGY YNGVRDVLFO87[address] [place] [address], [address]Glvzislzjq (Bld) [Volume fraction]30.7 %Low41.0-53.0The [facility] SystemComment on above: Performed By: #### CBC ####[facility] PATHOLOGY JHSQUXEHDG9[address] [place] [address], [address]Xtsxwikcih (Bld) [Mass/Vol]10.3 g/dLLow13.9-16.3 The [facility] SystemComment on above:Performed By: #### CBC ####[facility] PATHOLOGY JVUKUEPMUW85[address] [place] [address], [address]ZGH (RBC) [Entitic mass]31.3 yeAtzeyj15.0-34.0The [facility] SystemComment on above:Performed By: #### CBC ####[facility] PATHOLOGY FIURKJBTFY7[address] [place] [address], [address]EZCN (RBC) [Mass/Vol]33.4 g/kJFrzwtf72.0-35.9The [facility] System Comment on above:Performed By: #### CBC ####[facility] PATHOLOGY MVKVHKYWEC75[address] [place] [address], [address]FLW (RBC) [Entitic vol]94 fLNormal 80-100The [facility] SystemComment on above:Performed By: #### CBC ####[facility] PATHOLOGY RQWQHGUUQB18[address] [place] [address], [address]Iefmvfez mean volume (Bld) [Entitic vol]6.8 fLLow7.5-11.2The [facility] SystemComment on above:Performed By: #### CBC ####[facility] PATHOLOGY IXOYDLPGNE8614 [place], [address]Srppnnqwy (Bld) [#/Vol]391 10*3/oJUpyatu554-652Iqe [facility]roHealth SystemComment on above:Performed By: #### CBC ####S PATHOLOGY WBCPSQEATG[address]24[address] [place] [address], [address]OUZ (Bld) [#/Vol]3.28 10*6/uLLow4.50-5.90The [facility] CenterHealth SystemComment on above:Performed By: #### CBC ####[facility] PATHOLOGY WARWCHMFFR9002 [place], [address]FBL (Bld) [#/Vol]6.3 10*3/uLNormal4.5-11.5The [facility] SystemComment on above: Performed By: #### CBC ####[facility] PATHOLOGY KJYKVCDRAC3568 [place], [address]CZ CHEST/ABD/PELVIS W/ CONTRASTon 74-63-9406CO CHEST/ABD/PELVIS W/ CONTRASTNormCleveland Clinic Hillcrest [facility] SystemMAGNESIUMon 06-06-2024 Magnesium [Mass/Vol]1.8 mg/dLLow1.9-2.7The [facility] SystemComment on above: Performed By: #### CHI MG, CH8 ####S PATHOLOGY AXSABXBMYX4367 [place], [address]GKAUPNYKQBpi 73-13-2991Cesqzcsvv [Mass/Vol]2.4 mg/dLLow2.5-5.0The [facility] SystemComment on above:Performed By: #### CHI MG, CH8 ####S PATHOLOGY KDAMDABVGE6351 [place], [place], [address]Progress Noteson 50-81-5102Ekhzquerfinnj Authentication Interface Message TextNormMorrow County Hospitale [facility] CenterHealth SystemUS Cheston 45-24-5573Duezrrkov Study observation (narrative)[facility]ro[facility]1:1 Interactionon 78-92-8784Mfgphlhifxiip Authentication Interface Message TextNormCleveland Clinic Hillcrest [facility] SystemBASIC METABOLIC PANELon 63-81-9601Miwet gap [Moles/Vol]9 mmol/QSci36-41Edm [facility] CenterHealth System Comment on above:Performed By: #### MG CHI, CH8 ####S PATHOLOGY JIOPEPKLEF5870 [place], [address]Mueoyfe [Mass/Vol]8.3 mg/dLLow8.6-10.3The [facility] SystemComment on above:Performed By: #### MG CHI, CH8 ####S PATHOLOGY JIJDUWFGEE8846 [place], [place], [address] Chloride [Moles/Vol]109 mmol/RRvps89-671Oaj [facility] SystemComment on above:Performed By: #### MG CHI, LLOYD8 ####S PATHOLOGY KUSKNSRNXD2819 [place], [address]OA2 [Moles/Vol]26 mmol/VSyqytp85-27Yfs [facility] SystemComment on above:Performed By: #### MG CHI, CH8 ####S PATHOLOGY FFUCZBUBKJ8286 [place], [address]Soolpzpfev [Mass/Vol]0.51 mg/dLLow0.70-1.30The [facility] SystemComment on above:Performed By: ###MG TOO, CH8 ####S PATHOLOGY SGKTIAYSGX9007 [place], [address]ZOBAXGYXH GFR (CKD-EPI)101 mL/min/1.73sqmNormal >=60The [facility] SystemComment on above:Result Comment: 2020 CKD EPI Equation using Creatinine without RaceComment: Estimated glomerular filtration rate (eGFR) is calculated without a race coefficient. Values should be interpreted in the context of the patient's full clinical presentation.Reference:1. Rishi C, Jorge M, Nic SILVA, et al.. A Unifying Approach for GFR Estimation: Recommendations of the NKF-ASN Task Force on Reassessing the Inclusion of Race in Diagnosing Kidney Disease. [place] Journal of Kidney Diseases 2021;79(2):26 8-88.e1.2. N Engl J Med 1 Vol. 385 Issue 19 Pages 0106-4590Performed By: #### MG CHI, CH8 ####[facility] PATHOLOGY AMREICOMYV2260 [place], [address]Oacqsgn [Mass/Vol]91 mg/xECoiyqs29-211Rwt [facility]ro[facility] SystemComment on above:Performed By: #### CHI MG, CH8 ####[facility] PATHOLOGY LNOHPAZBLC1778 [place], [address]Emecbttbb [Moles/Vol]3.1 mmol/LLow 3.5-5.0The [facility] CenterroHealth SystemComment on above:Performed By: #### CHI MG, CH8 ####S PATHOLOGY UBQAMGPANV3327 [place], Sodium [Moles/Vol]141 mmol/ZKtwyla202-681Ccm [facility] CenterHealth SystemComment on above: Performed By: #### MG CHI, CH8 ####S PATHOLOGY DBAWINAGTO8117 [place], [address]Uaml nitrogen [Mass/Vol]12 mg/dLNormal7-25The [facility] CenterHealth SystemComment on above:Performed By: #### MG CHI, CH8 ####S PATHOLOGY WDGOROWEPW[address] [place] [address], [address]UUPCVZOA BLOOD COUNTon 93-63-3459Iyaenntbzoc distribution width (RBC) [Ratio]17.7 %High 11.5-14.5The [facility] SystemComment on above:Performed By: #### CBC ####S PATHOLOGY GHSANYXPMX4800 [place], [address]Jgztmlwssy (Bld) [Volume fraction]30.6 %Low41.0-53.0The [facility] SystemComment on above: Performed By: #### CBC ####S PATHOLOGY DZVANRTNVL2660 [place], [address]Buhxvgglkc (Bld) [Mass/Vol]10.2 g/dLLow13.9-16.3 The [facility] CenterHealth SystemComment on above:Performed By: #### CBC ####S PATHOLOGY OCEOYGCURM[address] [place] [address], [address]YBC (RBC) [Entitic mass]31.4 pfBxfmdd03.0-34.0The [facility] Centerro[facility] SystemComment on above:Performed By: #### CBC ####[facility] PATHOLOGY ECDUWHFLXL29[address] [place] [address], [address]NYEK (RBC) [Mass/Vol]33.4 g/iNAbmmbu77.0-35.9The [facility] System Comment on above:Performed By: #### CBC ####[facility] PATHOLOGY GFPXHGZDKX1375[address] [place] [address], [address]NRK (RBC) [Entitic vol]94 fLNormal 80-100The [facility] CenterroHealth SystemComment on above:Performed By: #### CBC ####[facility] PATHOLOGY SLTWQJCWAP[address] [place] [address], [address]Unrtpjey mean volume (Bld) [Entitic vol]6.7 fLLow7.5-11.2The [facility] Centerro[facility] SystemComment on above:Performed By: #### CBC ####[facility] PATHOLOGY WBSBREXYFY99[address] [place] [address], [address]Dydituqap (Bld) [#/Vol]427 10*3/vSLhau567-945Cvw [facility] Centerro[facility] SystemComment on above:Performed By: #### CBC ####[facility] PATHOLOGY RYYRUGTMTG[address] [place] [address], [address]DHW (Bld) [#/Vol]3.27 10*6/uLLow4.50-5.90The [facility] CenterroHealth SystemComment on above:Performed By: #### CBC ####[facility] PATHOLOGY TOKPXOHMJF[address] [place] [address], [address]GMC (Bld) [#/Vol]5.7 10*3/uLNormal4.5-11.5The [facility] Centerro[facility] SystemComment on above: Performed By: #### CBC ####[facility] PATHOLOGY BLLMOSOFBX55[address] [place] [address], [address]ABBQFQCJTfj 72-96-2075Lahynzztd [Mass/Vol]1.9 mg/dLNormal1.9-2.7The [facility] Centerro[facility] SystemComment on above:Performed By: #### PHOS, MG, CH8 ####[facility] PATHOLOGY PUQSWEFZQI4363 [place], [address]YXROARGAXUtm 05-74-5451Zaktorwzh [Mass/Vol]2.5 mg/dLNormal2.5-5.0The [facility] SystemComment on above:Performed By: #### PHOS, MG, CH8 ####[facility] PATHOLOGY KTKHTYDWEH0699 [place], [address]Rqjdlqyj Noteson 99-60-4572Vibifmmmbrbeu Authentication Interface Message TextNormalThe [facility] SystemTranscription Authentication Interface Message TextNormC[facility] Clinic [facility] SystemTranscription Authentication Interface Message TextNormC[facility] Clinic [facility] SystemXR ABDOMEN AP 1 VIEWon 22-38-1668NP ABDOMEN AP 1 VIEWNormalThe [facility] SystemXR CHEST AP OR PA 1 VIEWon 31-64-8128GU CHEST AP OR PA 1 VIEW NormalThe [facility]ro[facility] SystemXR Chest Single viewon 06-13-2025CHQYWFJZNYW: XR CHEST AP OR PA 1 VIEW [...] in thoracic trachea. Otherwise, unchanged pulmonary findings, asdetailed Vignesh Luevano MD - 06/05/2024 EXAMINATION: XR CHEST AP [...] in thoracic trachea. Otherwise, unchanged pulmonary findings, asdetailed MetZanesville City HospitalRadiology Study observation (narrative)CarePaymentXR Chest Single viewOrdered By: Vignesh Higuera on 59-23-3634ExkvrNsdzar Work Phone: [phone] Interactionon 88-71-3917Jtbryxtwldecf Authentication Interface Message Ygle [facility] CenterHiddenbed SystemAnesthesia Postprocedure Evaluationon 26-10-2383Rsqacxnxtgftz Authentication Interface Message Ygle [facility] CenterHiddenbed SystemAnesthesia Preprocedure Evaluationon 01-48-3869Nhppowclzngfd Authentication Interface Message BueenoNoSIL4 Systems [facility] CenterHiddenbed SystemAnesthesia Transfer Of Careon 07-35-6694Bszjvpocluywh Authentication Interface Message Ygle [facility] CenterHiddenbed SystemBASIC METABOLIC PANELon 37-84-1501Tuglo gap [Moles/Vol]11 mmol/DPprryh67-34Tso [facility] SystemComment on above:Performed By: #### CH8, PHOS, MG ####[facility] PATHOLOGY IWFKUUALJH8516 [place], [address]Hniidna [Mass/Vol]7.7 mg/dLLow8.6-10.3The [facility] SystemComment on above:Performed By: #### CH8, PHOS, MG ####[facility] PATHOLOGY GAYXBBPREF7753 [place], [place], [address]Chloride [Moles/Vol]108 mmol/VEptj56-940Lrm [facility] SystemComment on above:Performed By: #### CH8, PHOS, MG ####[facility] PATHOLOGY HIEXUSTSPW6672 [place], [address]XC1 [Moles/Vol]23 mmol/XTqslsc19-68Geg [facility] CenterHealth SystemComment on above:Performed By: ###CHI BENAVIDES MG ####[facility] PATHOLOGY HZHNUWWEUA5928 [place], [address]Iahvcxxkiz [Mass/Vol]0.54 mg/dLLow0.70-1.30The [facility] CenterHealth SystemComment on above:Performed By: ###CHI BENAVIDES MG ####S PATHOLOGY AQURWAKXFJ9857 [place], [address]VAWNZKILA GFR (CKD-EPI)99 mL/min/1.73sqmNormal>=60 The [facility] SystemComment on above:Result Comment: 2020 CKD EPI Equation using Creatinine without RaceComment: Estimated glomerular filtration rate (eGFR) is calculated without a race coefficient. Values should be interpreted in the context of the patient's full clinical presentation.Reference:1. Rishi C, Jorge M, Nic DC, et al.. A Unifying Approach for GFR Estimation: Recommendations of the NKF-ASN Task Force on Reassessing the Inclusion of Race in Diagnosing Kidney Disease. [place] Journal of Kidney Diseases 2021;79(2):26 8-88.e1.2. N Engl J Med 1 Vol. 385 Issue 19 Pages 2878-1429Performed By: ###CHI BENAVIDES MG ####[facility] PATHOLOGY FNTGCFITFO5936 [place], [address]Pmelpjt [Mass/Vol]87 mg/tVIgggyg62-632Wap [facility] SystemComment on above:Performed By: ###CHI BENAVIDES MG ####[facility] PATHOLOGY AZNSWJZWLD6382 [place], [address]Xvekhwpvb [Moles/Vol]3.2 mmol/LLow 3.5-5.0The [facility] SystemComment on above:Performed By: ##CHI GREY MG ####[facility] PATHOLOGY WIDMNYTLPJ7423 [place], Sodium [Moles/Vol]139 mmol/OUkyqsa133-304Sby [facility] SystemComment on above: Performed By: ###RAD BENAVIDESS, MG ####[facility] PATHOLOGY XWUGRLPUPC5425 [place], [address]Rdxk nitrogen [Mass/Vol]17 mg/dLNormal7-25The [facility] CenterroHealth SystemComment on above:Performed By: #### CH8, PHOS, MG ####[facility] PATHOLOGY BPWBHPNTWY[address] [place] [address], [address]PEDUB GAS, ARTERIALon 22-29-9253GT ABE0.3 mmol/LNormal-2.0-3.0The [facility] SystemComment on above:Performed By: #### CR BGA ####[facility] PATHOLOGY EAZNWSOTRC[address] [place] [address], [address]KM CRH890.7 mm HgLow35.0-45.0The [facility] CenterroHealth SystemComment on above:Performed By: #### CR BGA ####[facility] PATHOLOGY XSQUSCCSXM[address] [place] [address], [address]UE PHA7.466High 7.350-7.450The [facility] CenterroHealth SystemComment on above:Performed By: #### CR BGA ####[facility] PATHOLOGY YKMSVUWLPK8[address] [place] [address], [address]MK JT5334 mm XxYiex93-769Civ [facility] SystemComment on above:Performed By: #### CR BGA ####[facility] PATHOLOGY RWEMLYUSIX37[address] [place] [address], [address]MRE4 (CATEGORY)35%NormalThe [facility] CenterroHealth SystemComment on above: Performed By: #### CR BGA ####[facility] PATHOLOGY RYXWHKMBVE7[address] [place] [address], [address]XKK5 (Bld) [Moles/Vol]23 mmol/BCzrpcl94-07Jvu [facility] Centerro[facility] SystemComment on above:Performed By: #### CR BGA ####[facility] PATHOLOGY HQKFEGIUOU[address] [place] [address], [address]GOAFRlxrYgxdvgJeb [facility] Centerro[facility] SystemComment on above:Performed By: #### CR BGA ####[facility] PATHOLOGY CDDTEJCPYT0977[address] [place] [address], [address]Jmerwa saturation in Blood99.0 %Dnmnwi00.0-99.0The [facility] CenterHealth SystemComment on above:Performed By: #### CR BGA ####[facility] PATHOLOGY [id number] [place] [address], [id number] Attestationon [id number] Authentication Interface Message TextNormalThe [facility], [facility] SystemCOMPLETE BLOOD COUNTon 06-04-2024 Erythrocyte distribution width (RBC) [Ratio]17.4 %High11.5-14.5[facility] Center[facility] SystemComment on above:Performed By: #### CBC ####[facility] PATHOLOGY [id number] [place] [address], [phone] (Bld) [Volume fraction]27.7 %Low41.0-53.0[facility] Center[facility] SystemComment on above:Performed By: #### CBC ####[facility] PATHOLOGY [id number] [place] [address], Hemoglobin (Bld) [Mass/Vol]9.1 g/dLLow13.9-16.3[facility] SystemComment on above:Performed By: #### CBC ####[facility] PATHOLOGY LGMSHNIPGI[address] [place] [address], [address]GXI (RBC) [Entitic mass]30.7 zwAwcyal97.0-34.0The [facility] CenterHealth SystemComment on above:Performed By: #### CBC ####[facility] PATHOLOGY DAFFXGCMHS[address] [place] [address], [address]NFVY (RBC) [Mass/Vol] 32.9 g/oWJwlsff42.0-35.9The [facility] CenterHealth SystemComment on above:Performed By: #### CBC ####[facility] PATHOLOGY EJHTBWFKDM[address] [place] [address], [address]SBF (RBC) [Entitic vol]93 tJKpmgxw65-305Luw [facility] CenterHealth SystemComment on above:Performed By: #### CBC ####[facility] PATHOLOGY KDHJHOGIRJ[address] [place] [address], [address]Miariulm mean volume (Bld) [Entitic vol]6.8 fLLow 7.5-11.2The [facility] SystemComment on above:Performed By: #### CBC ####[facility] ENKPVOUGTF4162 [place], [address]Fssmnhxaf (Bld) [#/Vol]398 10*3/kJHobwgc317-320Mjd [facility] SystemComment on above: Performed By: #### CBC ####[facility] SIXAEOFQDB023[address] [place] [address], [address]VIK (Bld) [#/Vol]2.97 10*6/uLLow4.50-5.90The [facility] SystemComment on above:Performed By: #### CBC ####[facility] BSRMPWYLAK4176[address] [place] [address], [address]AZT (Bld) [#/Vol]6.0 10*3/uLNormal4.5-11.5The [facility] SystemComment on above:Performed By: #### CBC ####[facility] TECMHASEXG[address] [place] [address], MAGNESIUMon 19-64-3486Nkktuynhb [Mass/Vol]2.0 mg/dLNormal1.9-2.7The [facility] SystemComment on above:Performed By: #### CH8, CHI, MG ####[facility] OVYFLXQSHT[address] [place] [address], [address]PU Noteon 06-04-2024 Mechanic Chief Authentication Interface Message TextNormalThe [facility] [place] Nursingon 04-21-4796Hobkopxtupvqr Authentication Interface Message Text11:27 Hand-off report called to Jena Toure RN on .NormalThe [facility] SystemPHOSPHORUSon 91-85-3779Atasruocw [Mass/Vol]4.4 mg/dLNormal2.5-5.0The [facility] SystemComment on above:Performed By: #### K, PHOS ####[facility] CSALXLQWCR[address] [place] [address], [address]Kjltqozhl [Mass/Vol]1.7 mg/dLLow2.5-5.0The [facility] SystemComment on above:Performed By: #### CH8, PHOS, MG ####[facility] XGWXRSUCLD4211 [place], [place], [address]POTASSIUMon 12-25-7346Ssjjsrqae [Moles/Vol]3.7 mmol/LNormal3.5-5.0The [facility] SystemComment on above:Performed By: #### K, PHOS ####[facility] PATHOLOGY GVLJHCYREZ4863 [place], [address]Wcivztnd Noteson 92-60-2370Plyqilomkunkx Authentication Interface Message TextSocial Work ICU Note Attempted to reach pt's Ilana Michelle at [phone] to discuss LTACH planning. No answer. SW will follow-up as able. Katie Puri, [facility] COALGATESusy, SUDARSHANGeorgetown Behavioral HospitalSartaMorrow County HospitalVivotech [facility] CenterMatch Point Partners SystemTranscription Authentication Interface Message TextNormMorrow County Hospitale [facility] CenterHiddenbed SystemXR CHEST AP OR PA 1 VIEWon 98-80-7262VL CHEST AP OR PA 1 VIEWNoSolio SystemXR Chest Single viewon 05-96-3053MLOHVWRQGRE: XR CHEST AP OR PA 1 VIEW [...] change from the prior study. MACRO: None Trevin Caceres MD - 06/04/2024 EXAMINATION: XR CHEST AP [...] change from the prior study. MACRO: None [facility]Rad[facility] Study observation (narrative)[facility]HealthXR Chest Single viewOrdered By: Trevin Laurent on 94-59-2421UimdoOkfvkp Work Phone: [phone] Interactionon 43-18-8104Kqfslplbgqufc Authentication Interface Message TextNormalThe [facility] CenterMatch Point Partners SystemBASIC METABOLIC PANELon 05-59-9001Udkrm gap [Moles/Vol]9 mmol/MNuk04-64Cij [facility] CenterMatch Point Partners System Comment on above:Performed By: ###MG BENAVIDES PHOS ####[facility] PATH[facility]Y OZWRNCESNN2129 [place], [address]Htmsskw [Mass/Vol]7.9 mg/dLLow8.6-10.3The [facility] CenterroGerman Hospital SystemComment on above:Performed By: ###MG BENAVIDES PHOS ####[facility] PATHOLOGY KMXFGJOZVU0048 [place], [place], [address]Chloride [Moles/Vol]104 mmol/LTarric60-141Gpv [facility] SystemComment on above:Performed By: ###MG BENAVIDES PHOS ####[facility] PATHOLOGY EXBNTRQUDU0116 [place], [address]YL6 [Moles/Vol]27 mmol/DOevkmh49-18Xfq [facility] SystemComment on above:Performed By: ###MG BENAVIDES PHOS ####[facility] PATHOLOGY TMWIFAADNA8705 [place], [address]Txzfrqsllx [Mass/Vol]0.73 mg/dLNormal0.70-1.30The [facility] SystemComment on above: Performed By: #### MG VERDE PHOS ####[facility] PATHOLOGY TUFXTCWKAX3926 [place], [address]JVNJFITMW GFR (CKD-EPI)90 mL/min/1.73sqmNormal>=60 The [facility] SystemComment on above:Result Comment: 2020 CKD EPI Equation using Creatinine without RaceComment: Estimated glomerular filtration rate (eGFR) is calculated without a race coefficient. Values should be interpreted in the context of the patient's full clinical presentation.Reference:1. Rishi Jose, Jorge M, Nic SILVA, et al.. A Unifying Approach for GFR Estimation: Recommendations of the NKF-ASN Task Force on Reassessing the Inclusion of Race in Diagnosing Kidney Disease. [place] Islander Journal of Kidney Diseases 2021;79(2):26 8-88.e1.2. N Engl J Med 2020 Vol. 385 Issue 19 Pages 0333-7276Performed By: ###MG BENAVIDES PHOS ####[facility] PATHOLOGY DAMUKYMCTL1742 [place], [address]Fhhffgj [Mass/Vol]99 mg/wKLchqic07-106Uka [facility] SystemComment on above:Performed By: ###MG BENAVIDES PHOS ####[facility] PATH[facility]Y PLSZCGISRN6733 [place], [address]Hktidcocb [Moles/Vol]3.3 mmol/LLow 3.5-5.0The [facility] SystemComment on above:Performed By: ###MG BENAVIDES PHOS ####[facility] PATHOLOGY IUUHEJKWPF9688 [place], [place], Sodium [Moles/Vol]137 mmol/JDscdef108-446Uzt [facility] SystemComment on above: Performed By: #### MG VERDE PHOS ####[facility] PATHOLOGY TTAHACEQRI1554 [place], [address]Quso nitrogen [Mass/Vol]21 mg/dLNormal7-25The [facility] SystemComment on above:Performed By: #### CH8, CHI PRADO ####[facility] PATHOLOGY ZDFUDXBZWT[address] [place] [address], [address]TBPFM GAS, ARTERIALon 13-40-2124YC % O2 SAT> 100.2Ylwd53.0-99.0The [facility] Comment on above:Performed By: #### CR BGA ####[facility] PATHOLOGY COHEMIVEIX6665[address] [place] [address], [address]EH ABE2.8 mmol/LNormal-2.0-3.0The [facility] SystemComment on above:Performed By: #### CR BGA ####[facility] PATHOLOGY UTTQJNOSGV4949[address] [place] [address], [address]LF UBW956.8 mm HgNormal 35.0-45.0The [facility] SystemComment on above:Performed By: #### CR BGA ####[facility] PATHOLOGY WVNXFXKTVM4799[address] [place] [address], [address]NC PHA7.474Lyzggh3.350-7.450The [facility] SystemComment on above:Performed By: #### CR BGA ####[facility] PATHOLOGY MUYXECUOQC[address] [place] [address], [address]CK LM7661 mm BjJuea87-323Owm [facility] CenterroHealth SystemComment on above: Performed By: #### CR BGA ####[facility] PATHOLOGY ATYNENIZSP[address] [place] [address], [address]YBO4 (CATEGORY)40%NormalThe [facility] Comment on above:Performed By: #### CR BGA ####[facility] PATHOLOGY YPXWBODGHK4459[address] [place] [address], [address]CKU8 (Bld) [Moles/Vol]27 mmol/LNormal 21-28The [facility] SystemComment on above:Performed By: #### CR BGA ####[facility] PATHOLOGY ECQVCGJMZE5897[address] [place] [address], [address]BUHKLlyu NormalThe [facility] SystemComment on above:Performed By: #### CR BGA ####[facility] PATHOLOGY VVCTXOPWVJ[address] [place] [address], [address]LYYUYTLN BLOOD COUNTon 57-11-0436Mrlwzohgpey distribution width (RBC) [Ratio]17.5 %High 11.5-14.5The [facility] CenterHealth SystemComment on above:Performed By: #### CBC ####[facility] PATHOLOGY JFAPPEAPWN1504[address] [place] [address], [address]Frbieyfoog (Bld) [Volume fraction]27.0 %Low41.0-53.0The [facility] CenterHealth SystemComment on above: Performed By: #### CBC ####[facility] PATHOLOGY MJSJLOHLCN0798[address] [place] [address], [address]Dzxdyysqzz (Bld) [Mass/Vol]9.2 g/dLLow13.9-16.3The [facility] CenterHealth SystemComment on above:Performed By: #### CBC ####[facility] PATHOLOGY VFYPJLSJSD0099[address] [place] [address], [address]JDV (RBC) [Entitic mass]31.7 jaSvakmd14.0-34.0The [facility] CenterHealth SystemComment on above:Performed By: #### CBC ####[facility] PATHOLOGY XWFRAHWWVI5584[address] [place] [address], [address]MHTA (RBC) [Mass/Vol]34.1 g/zUKdcrrt72.0-35.9The [facility] System Comment on above:Performed By: #### CBC ####[facility] PATHOLOGY FENMHCABCH[address] [place] [address], [address]JTC (RBC) [Entitic vol]93 fLNormal 80-100The [facility] SystemComment on above:Performed By: #### CBC ####[facility] PATHOLOGY DCJYTCQCYB8087[address] [place] [address], [address]Emxrkcbl mean volume (Bld) [Entitic vol]7.1 fLLow7.5-11.2The [facility] SystemComment on above:Performed By: #### CBC ####[facility] PATHOLOGY FXRPIGHCER6557[address] [place] [address], [address]Gxoehksfg (Bld) [#/Vol]396 10*3/qKJrotdf237-261Zwy [facility] SystemComment on above:Performed By: #### CBC ####S PATHOLOGY DJYYYUPPGL5606[address] [place] [address], [address]WDK (Bld) [#/Vol]2.90 10*6/uLLow4.50-5.90The [facility] SystemComment on above:Performed By: #### CBC ####S PATHOLOGY MKBIXEJLTH[address]65[address] [place] [address], [address]UWD (Bld) [#/Vol]6.6 10*3/uLNormal4.5-11.5The [facility] SystemComment on above: Performed By: #### CBC ####[facility] PATHOLOGY BZYRXTDWIZ[address] [place] [address], [address]Eofxnjdlsl 89-66-0061Avxahxowzjkxe Authentication Interface Message TextNoC[facility] Clinic [facility] SystemTranscription Authentication Interface Message TextMount Sinai [facility] SystemMAGNESIUMon 06-03-2024 Magnesium [Mass/Vol]2.1 mg/dLNormal1.9-2.7The [facility] SystemComment on above:Performed By: #### CH8, MG, PHOS ####S PATHOLOGY RJCDCYQDZO3144[address] [place] [address], [address]TQVJYELNPKax 77-63-6493Jsqfsatqe [Mass/Vol]3.1 mg/dLNormal2.5-5.0The [facility] SystemComment on above:Performed By: #### CH8, MG, PHOS ####S PATHOLOGY PGFRKOVXSN7378[address] [place] [address], [address]Gythjhbm Noteson 61-30-4389Wgeqcbpebbrbh Authentication Interface Message TextNormWellmont Health SystemroHealth SystemXR CHEST AP OR PA 1 VIEWon 73-57-0623WV CHEST AP OR PA 1 VIEWNormMorrow County Hospitale [facility] CenterroGerman Hospital SystemXR Chest Single viewon 19-00-0128LOHMMQRDKBU: XR CHEST AP OR PA 1 VIEW [...] by differences in patient positioning. MACRO: None Clare Bagley MD - 06/03/2024 EXAMINATION: XR CHEST AP [...] by differences in patient positioning. MACRO: None [facility] Study observation (narrative)[facility]XR Chest Single viewOrdered By: Clare Choe on 92-77-0343JdzkeDulrrb Work Phone: [phone] Interactionon 43-45-9890Ftenmjfcsusuk Authentication Interface Message TextNormalThe [facility] SystemBASIC METABOLIC PANELon 89-69-9204Bzait gap [Moles/Vol]13 mmol/FOlnfra89-76Zqa [facility] CenterHealth SystemComment on above:Performed By: #### CH8, CRR ####S PATHOLOGY PRFFUISEKM2556 [place], [address]Ghsysyo [Mass/Vol]7.8 mg/dLLow8.6-10.3The [facility] CenterroHealth SystemComment on above:Performed By: #### CH8, CRR ####S PATHOLOGY YPHKKGGXKA6657 [place], [place], Chloride [Moles/Vol]100 mmol/EBtedin29-474Jqd [facility] CenterHealth SystemComment on above:Performed By: #### CH8, CRR ####[facility] PATHOLOGY QCKDIZUJSQ9389 [place], [address]QK1 [Moles/Vol]33 mmol/YGssh41-30Kgi [facility] SystemComment on above:Performed By: #### CH8, CRR ####[facility] PATHOLOGY FXAUVOHHKO4473 [place], [address]Pedphqvqsr [Mass/Vol] 0.71 mg/dLNormal0.70-1.30The [facility] CenterroHealth SystemComment on above:Performed By: #### CH8, CRR ####[facility] PATHOLOGY KLHCIOBXOH20[address] [place] [address], [address]RZEXQYTWX GFR (CKD-EPI)91 mL/min/1.73sqmNormal>=60The [facility] SystemComment on above:Result Comment: 2020 CKD EPI Equation using Creatinine without RaceComment: Estimated glomerular filtration rate (eGFR) is calculated without a race coefficient. Values should be interpreted in the context of the patient's full clinical presentation.Reference:1. Rishi C, Jorge M, Nic DC, et al.. A Unifying Approach for GFR Estimation: Recommendations of the NKF-ASN Task Force on Reassessing the Inclusion of Race in Diagnosing Kidney Disease. [place] Islander Journal of Kidney Diseases 2021;79(2):268-88.e1.2. N Engl J Med 2020 Vol. 385 Issue 19 Pages 1158-5155Performed By: #### CH8, CRR ####S PATHOLOGY XIVNZIUFQD8489 [place], [address]Dehdhbp [Mass/Vol]114 mg/hVDkhy87-341Dke [facility] CenterroHealth SystemComment on above:Performed By: #### CH8, CRR ####S PATHOLOGY WHRAUEOOPK7198 [place], [place], Potassium [Moles/Vol]3.7 mmol/LNormal3.5-5.0The [facility] CenterroHealth SystemComment on above:Performed By: #### CH8, CRR ####S PATHOLOGY VSXDZVMTMI0848 [place], [address]Twutgd [Moles/Vol]142 mmol/MZsliir667-985Scz [facility] CenterHealth SystemComment on above:Performed By: #### LLOYD8, CRR ####S PATHOLOGY IWDPCOXULA8654 [place], [address]Wfgb nitrogen [Mass/Vol]17 mg/dLNormal7-25The [facility] SystemComment on above:Performed By: #### LLOYD8, CRR ####[facility] PATHOLOGY APBCSYEQMX5620 [place], [address]Zkqpk gap [Moles/Vol]13 mmol/AYisspu56-87Hfe [facility] SystemComment on above:Performed By: #### MG AMMON PHOAlfonzo ####S PATHOLOGY PFCKERIZNR2715 [place], [address]Qcowvla [Mass/Vol]7.9 mg/dLLow8.6-10.3 The [facility] SystemComment on above:Performed By: #### AMMON, , PHOS ####S PATHOLOGY HMUBOUXIPT6623 [place], [address]Ycfbqkde [Moles/Vol]99 mmol/YFhfpij45-855Rqp [facility] CenterroHealth SystemComment on above:Performed By: #### MG AMMON, PHOS ####[facility] PATHOLOGY VSZJMRCXZY9627 [place], [address]ZM7 [Moles/Vol]36 mmol/GFhcd71-09Wsv [facility] CenterroHealth SystemComment on above:Performed By: #### AMMON, , PHOS ####[facility] PATHOLOGY YBNVABEIZX9219 [place], [address]Nhedceklik [Mass/Vol] 0.67 mg/dLLow0.70-1.30The [facility] SystemComment on above:Performed By: #### MG AMMON, PHOS ####[facility] PATHOLOGY CWEZFPVOKB4104 [place], [address]ZYWRDDDVP GFR (CKD-EPI)93 mL/min/1.73sqmNormal>=60The [facility] SystemComment on above:Result Comment: 2020 CKD EPI Equation using Creatinine without RaceComment: Estimated glomerular filtration rate (eGFR) is calculated without a race coefficient. Values should be interpreted in the context of the patient's full clinical presentation.Reference:1. Rishi C, Jorge M, Nic SILVA, et al.. A Unifying Approach for GFR Estimation: Recommendations of the NKF-ASN Task Force on Reassessing the Inclusion of Race in Diagnosing Kidney Disease. [place]er Journal of Kidney Diseases 2021;79(2):268-88.e1.2. N Engl J Med 1 Vol. 385 Issue 19 Pages 3844-5511Performed By: #### MG VERDE PHOS ####[facility] PATHOLOGY ORJRVVHUFS2147 [place], [address]Finrmpo [Mass/Vol]137 mg/sHAqmy92-046Pmr [facility] SystemComment on above:Performed By: #### MG AMMON, PHOS ####[facility] PATHOLOGY PYGJWZCOBR6715 [place], [address]Vrdwqzrgp [Moles/Vol]4.1 mmol/LNormal3.5-5.0The [facility] SystemComment on above:Performed By: #### MG AMMON, PHOS ####[facility] PATHOLOGY IJABMLBSJF2150 [place], [address]Fagykc [Moles/Vol]144 mmol/JGskawo752-609Bmv [facility] SystemComment on above: Performed By: #### MG AMMON, PHOS ####[facility] PATHOLOGY RPFGTCWHUT6057 [place], [address]Jbzp nitrogen [Mass/Vol]15 mg/dLNormal7-25The [facility] CenterroHealth SystemComment on above:Performed By: #### CH8, MG, PHOS ####[facility] PATHOLOGY ZIJFOTAFYE7229[address] [place] [address], [address]DQAPN GAS, ARTERIALon 28-60-5554FA ABE4.0 mmol/LHigh-2.0-3.0The [facility] SystemComment on above:Performed By: #### CR BGA ####[facility] PATHOLOGY BFSCEYVTRQ7618[address] [place] [address], [address]YP USV293.2 mm RwLrxo69.0-45.0The [facility] CenterroHealth SystemComment on above:Performed By: #### CR BGA ####[facility] PATHOLOGY TPYNGEFBVW8194[address] [place] [address], [address]YP PHA7.359Normal 7.350-7.450The [facility] CenterroHealth SystemComment on above:Performed By: #### CR BGA ####[facility] PATHOLOGY MSOCAYJXHB2798[address] [place] [address], [address]JK GR9449 mm UjMdrr36-796Tcd [facility] CenterroHealth SystemComment on above:Performed By: #### CR BGA ####[facility] PATHOLOGY YVFONIVGSU[address] [place] [address], [address]HAG0 (CATEGORY)50%NormalThe [facility] CenterroHealth SystemComment on above: Performed By: #### CR BGA ####[facility] PATHOLOGY ODORWCTZJX1505[address] [place] [address], [address]VQG1 (Bld) [Moles/Vol]30 mmol/MMqzl98-63Ptb [facility] CenterroHealth SystemComment on above:Performed By: #### CR BGA ####[facility] PATHOLOGY PWDPCFECZI475[address] [place] [address], [address]RLKOMepxXohsciDrw [facility] CenterroGerman Hospital SystemComment on above:Performed By: #### CR BGA ####[facility] PATHOLOGY MRDWIESYAO2937[address] [place] [address], [address]Xkrkqv saturation in Blood99.4 %High95.0-99.0The [facility] CenterroHealth SystemComment on above:Performed By: #### CR BGA ####[facility] PATHOLOGY EIEGYIGGNR3158[address] [place] [address], [address]OF ABE11.9 mmol/LHigh-2.0-3.0The [facility] SystemComment on above: Performed By: #### CR BGA ####[facility] PATHOLOGY VZHEUYGAHP7407[address] [place] [address], [address]TP FZQ251.7 mm IwDfwk92.0-45.0The [facility] SystemComment on above:Performed By: #### CR BGA ####[facility] PATHOLOGY OLHDLPHEMN1249[address] [place] [address], [address]WJ PHA> 7.500High 7.350-7.450The [facility] CenterroHealth SystemComment on above:Performed By: #### CR BGA ####[facility] PATHOLOGY EKPVPVRTVV3788[address] [place] [address], [address]KM AU6163 mm RbYmtv15-425Unj [facility] CenterroHealth SystemComment on above:Performed By: #### CR BGA ####[facility] PATHOLOGY NRZGCHUBYC9[address] [place] [address], [address]OOO0 (CATEGORY)50%NormalThe [facility] CenterroHealth SystemComment on above: Performed By: #### CR BGA ####[facility] PATHOLOGY TFNQBRUPLC928[address] [place] [address], [address]ZJP1 (Bld) [Moles/Vol]36 mmol/QTjgq28-94Njl [facility] CenterroHealth SystemComment on above:Performed By: #### CR BGA ####[facility] PATHOLOGY DUZPGSRMNO3493[address] [place] [address], [address]TXMSPehePvrwokWlx [facility] CenterHealth SystemComment on above:Performed By: #### CR BGA ####[facility] PATHOLOGY KMFGNWAASM[address] [place] [address], [address]Youtcg saturation in Tzzbs652.0 %High95.0-99.0The [facility] CenterroHealth SystemComment on above:Performed By: #### CR BGA ####[facility] PATHOLOGY TUXUNHNOZC[address] [place] [address], [address]KFHDBOYG BLOOD COUNTon 60-11-1632Pybbmybnyaz distribution width (RBC) [Ratio]18.2 %High11.5-14.5The [facility] SystemComment on above:Performed By: #### CBC ####[facility] PATHOLOGY RYJDIVPJPG3484[address] [place] [address], [address]Togwnvfdem (Bld) [Volume fraction]26.6 %Low41.0-53.0The [facility] CenterHealth SystemComment on above:Performed By: #### CBC ####[facility] PATHOLOGY MRXAVRURXF[address] [place] [address], [address]Gqpndykoay (Bld) [Mass/Vol]9.2 g/dLLow 13.9-16.3The [facility] CenterHealth SystemComment on above:Performed By: #### CBC ####[facility] PATHOLOGY RKJTJESONX6162[address] [place] [address], [address]XFR (RBC) [Entitic mass]31.2 pnJxzapv48.0-34.0The [facility] SystemComment on above: Performed By: #### CBC ####[facility] PATHOLOGY MYKZBSEAQE1248[address] [place] [address], [address]QSTV (RBC) [Mass/Vol]34.7 g/dKVddvwt78.0-35.9The [facility] SystemComment on above:Performed By: #### CBC ####[facility] PATHOLOGY DRFLBRIOFQ0167[address] [place] [address], [address]UXU (RBC) [Entitic vol] 90 dUXnpfts62-482Nlu [facility] SystemComment on above:Performed By: #### CBC ####[facility] PATHOLOGY UPEONNHAYC[address] [place] [address], Platelet mean volume (Bld) [Entitic vol]6.3 fLLow7.5-11.2The [facility] System Comment on above:Performed By: #### CBC ####[facility] PATHOLOGY LMODVZEQTP4458[address] [place] [address], [address]Tlnupjdga (Bld) [#/Vol]409 10*3/uLHigh 150-400The [facility] SystemComment on above:Performed By: #### CBC ####[facility] PATHOLOGY VJJFCUAYMP4159[address] [place] [address], [address]QMD (Bld) [#/Vol]2.96 10*6/uLLow4.50-5.90The [facility] SystemComment on above:Performed By: #### CBC ####S PATHOLOGY FILYARIIZM9252[address] [place] [address], [address]WXH (Bld) [#/Vol]7.8 10*3/uLNormal4.5-11.5The [facility] System Comment on above:Performed By: #### CBC ####[facility] PATHOLOGY NFHDNNEIBP9106[address] [place] [address], [address]RMRKPWRJ RANDOMon 02-42-1412BAUDPGHC, SERUM2.7 ug/dLNormalThe [facility] SystemComment on above:Performed By: #### CH8, CRR ####[facility] PATHOLOGY RWIMSMTHOB[address] [place] [address], [address]Disaffzojy 99-51-9196Rfpelgrnsqqqk Authentication Interface Message TextNormC[facility] SystemMAGNESIUMon [id number] [Mass/Vol]1.9 mg/dLNormal1.9-2.7The [facility] SystemComment on above:Performed By: #### AMMON, MG, PHOS ####[facility] PATHOLOGY [id number] [place] [address], 44 PHOSPHORUSon [phone] [Mass/Vol]3.5 mg/dLNormal2.5-5.0The [facility] SystemComment on above:Performed By: #### AMMON, MG, PHOS ####S PATHOLOGY [id number] [place] [address], [phone] Noteson [phone] Authentication Interface Message TextNormC[facility] SystemTranscription Authentication Interface Message TextNormC[facility] SystemXR CHEST AP OR PA 1 VIEWon [id number] CHEST AP OR PA 1 VIEW NormalThe [facility] SystemXR Chest Single viewon [id number]: XR CHEST AP OR PA 1 VIEW 06/02/2024 06:22 AM CLINICAL HISTORY: Intubation ASSOCIATED DIAGNOSIS: Intubation ORDERING PROVIDER: CAILIN DABAGHI TECHNOLOGISTS NOTE: COMPARISON: XR CHEST AP OR PA 1 VIEW 06/01/2024, 9:10 AM XR CHEST AP OR PA 1 VIEW 06/01/2024, 9:09 AMXR CHEST AP OR PA 1 VIEW 06/01/2024, [...] No pneumothorax. Life-support devices stable. MACRO: None Micah Taylor MD - 06/02/2024 EXAMINATION: XR CHEST AP OR PA 1 VIEW 06/02/2024 06:22 AM CLINICAL HISTORY: Intubation ASSOCIATED DIAGNOSIS: Intubation ORDERING PROVIDER: CAILIN BELTRAN TECHNOLOGISTS NOTE: COMPARISON: XR CHEST AP OR PA 1 VIEW 06/01/2024, 9:10 AM XR CHEST AP OR PA 1 VIEW 06/01/2024, 9:09 AMXR CHEST AP OR PA 1 VIEW 06/01/2024, [...] No pneumothorax. Life-support devices stable. MACRO: None [facility] (n[facility]ative)[facility]XR Chest Single viewOrdered By: Micah Lynne on 20-35-5774VejuhKscnxp Work Phone: [phone] Interactionon 83-32-9106Yxyzrwhuaizhq Authentication Interface Message TextNormMorrow County Hospitale [facility] SystemBASIC METABOLIC PANELon 48-93-4125Hjnja gap [Moles/Vol]11 mmol/ATmemcw75-75Eio [facility] SystemComment on above:Performed By: #### CH8 ####[facility] RVMKGCZVOU8773 [place], [address]Pzwnpys [Mass/Vol]7.9 mg/dLLow8.6-10.3 The [facility] SystemComment on above:Performed By: #### CH8 ####[facility] NIQKUBDOUC0744 [place], [address]Xvxujwqy [Moles/Vol]96 mmol/SAyg17-109Kqt [facility] SystemComment on above:Performed By: #### CH8 ####[facility] NXMOKTMLDM1460 [place], [address]UE3 [Moles/Vol]41 mmol/GXvub17-96Zyf [facility] SystemComment on above:Performed By: #### CH8 ####[facility] JAOWARJNSP0183 [place], [address]Eutnibqbjb [Mass/Vol]0.63 mg/dLLow0.70-1.30The [facility] System Comment on above:Performed By: #### CH8 ####S PATHOLOGY MLMHGGZNHF4213 [place], [address]OUZOUPHEB GFR (CKD-EPI)94 mL/min/1.73sqmNormal>=60The [facility] SystemComment on above:Result Comment: 2020 CKD EPI Equation using Creatinine without RaceComment: Estimated glomerular filtration rate (eGFR) is calculated without a race coefficient. Values should be interpreted in the context of the patient's full clinical presentation.Reference:1. Rishi C, Jorge M, Nic DC, et al.. A Unifying Approach for GFR Estimation: Recommendations of the NKF-ASN Task Force on Reassessing the Inclusion of Race in Diagnosing Kidney Disease. [place] Journal of Kidney Diseases 202;79(2):268-88.e1.2. N Engl J Med 1 Vol. 385 Issue 19 Pages 0553-3902Performed By: #### CH8 ####[facility] PATH[facility] KFCGVBBSYL2409 [place], [address]Bmymkqc [Mass/Vol]123 mg/vKBufw70-818 The [facility] SystemComment on above:Performed By: #### CH8 ####[facility] PATHOLOGY BRJTHKLZRG0597 [place], [address]Gasiumozs [Moles/Vol] 3.3 mmol/LLow3.5-5.0The [facility]ro[facility] SystemComment on above:Performed By: #### CH8 ####[facility] PATHOLOGY ODUQLRLYCV[address] [place] [address], Sodium [Moles/Vol]145 mmol/KYampft075-918Pcn [facility] Centerro[facility] SystemComment on above: Performed By: #### CH8 ####[facility] PATHOLOGY HYSCCITIZU[address] [place] [address], [address]Dxzi nitrogen [Mass/Vol]15 mg/dLNormal7-25The [facility] Centerro[facility] SystemComment on above:Performed By: #### CH8 ####[facility] PATHOLOGY QDCJEYKZEU[address] [place] [address], [address]EWEAV GAPNormalThe [facility] CenterroHealth SystemComment on above:Result Comment: Unable to calculate due to elevated VV6Nrhawarlq By: #### CH8 ####[facility] PATHOLOGY OVJWUOKDAI64[address] [place] [address], [address]Hkpqwdx [Mass/Vol]8.1 mg/dLLow8.6-10.3The [facility] Centerro[facility] SystemComment on above:Performed By: #### CH8 ####[facility] PATHOLOGY TIXOUVCLGM[address] [place] [address], [address]Wbyrvleg [Moles/Vol]95 mmol/WUtm49-006Hor [facility]ro[facility] SystemComment on above:Performed By: #### CH8 ####[facility] PATHOLOGY XSLSRSFKGE[address] [place] [address], [address]QG1 [Moles/Vol]mmol/DJtqv97-67Zvd [facility]ro[facility] SystemComment on above:Performed By: #### CH8 ####[facility] PATHOLOGY FWTQHNAHUZ[address] [place] [address], [address]Jetzkfrhfz [Mass/Vol]0.63 mg/dLLow0.70-1.30The [facility] System Comment on above:Performed By: #### CH8 ####[facility] PATHOLOGY KAHXUPBKKC5193 [place], [address]RKPJJWCXO GFR (CKD-EPI)94 mL/min/1.73sqmNormal>=60The [facility] SystemComment on above:Result Comment: 2020 CKD EPI Equation using Creatinine without RaceComment: Estimated glomerular filtration rate (eGFR) is calculated without a race coefficient. Values should be interpreted in the context of the patient's full clinical presentation.Reference:1. Rishi C, Jorge M, Nic DC, et al.. A Unifying Approach for GFR Estimation: Recommendations of the NKF-ASN Task Force on Reassessing the Inclusion of Race in Diagnosing Kidney Disease. [place] Journal of Kidney Diseases 2021;79(2):268-88.e1.2. N Engl J Med 1 Vol. 385 Issue 19 Pages 4192-3659Performed By: #### CH8 ####[facility] PATHOLOGY OKYWJIGCNS6150 [place], [address]Bmnjhei [Mass/Vol]213 mg/bQNfbo36-607 The [facility] SystemComment on above:Performed By: #### CH8 ####[facility] PATHOLOGY SJVOEMFXJT1509 [place], [address]Mrgtunbqr [Moles/Vol] 2.8 mmol/LLow3.5-5.0The [facility] SystemComment on above:Performed By: #### CH8 ####[facility] PATHOLOGY VWTBHESLXH0691 [place], Sodium [Moles/Vol]147 mmol/OBeqb649-192Tnx [facility] SystemComment on above: Performed By: #### CH8 ####[facility] PATHOLOGY ROAEOZBODM4751 [place], [address]Ofni nitrogen [Mass/Vol]17 mg/dLNormal7-25The [facility] SystemComment on above:Performed By: #### CH8 ####[facility] PATHOLOGY FANTTSMCEL6358 [place], [address]AIGPT GAPNormalThe [facility] SystemComment on above:Result Comment: Anion Gap cannot be calculated when CO2 is >45.Performed By: #### CH8 ####[facility] PATHOLOGY BTUXVYIFWF7538 [place], [address]Svrehim [Mass/Vol]8.7 mg/dLNormal8.6-10.3The [facility] Center[facility] SystemComment on above:Performed By: #### CH8 ####[facility] PATHOLOGY ZKNOGNTDOV2215 [place], Chloride [Moles/Vol]98 mmol/USfddkc49-636Zkn [facility] SystemComment on above: Performed By: #### CH8 ####[facility] PATHOLOGY QAQNEDDAWG[address] [place] [address], [address]PC8 [Moles/Vol]mmol/RNlke90-76Oku [facility] SystemComment on above:Performed By: #### CH8 ####[facility] PATHOLOGY LLUTBUVGPS[address] [place] [address], [address]Lwvrgywoac [Mass/Vol]0.64 mg/dLLow 0.70-1.30The [facility] SystemComment on above:Performed By: #### CH8 ####[facility] PATHOLOGY PQXZVNTXVD[address] [place] [address], [address]EHLYLEBLC GFR (CKD-EPI)94 mL/min/1.73sqmNormal>=60The [facility] SystemComment on above: Result Comment: 2020 CKD EPI [...] Inclusion of Race in Diagnosing Kidney Disease. [place] Journal of Kidney Diseases 2021;79(2):268-88.e1.2. N Engl J Med 2020 Vol. 385 Issue 19 Pages 4803-7109Performed By: #### CH8 ####[facility] PATHOLOGY ATLWWXAQCU65[address] [place] [address], [address]Jqhmtnx [Mass/Vol]99 mg/aQHgsuiu80-258 The [facility] SystemComment on above:Performed By: #### CH8 ####[facility] PATHOLOGY ZMGQZPVIHI83[address] [place] [address], [address]Brnklbfhp [Moles/Vol] 3.3 mmol/LLow3.5-5.0The [facility] SystemComment on above:Performed By: #### CH8 ####[facility] PATHOLOGY WHTKDPKREC[address] [place] [address], Sodium [Moles/Vol]158 mmol/LCritically frln326-447Lgl [facility] SystemComment on above:Performed By: #### CH8 ####[facility] PATHOLOGY TVSSNNNOJF8723[address] [place] [address], [address]Dkrp nitrogen [Mass/Vol]17 mg/dLNormal7-25The [facility] SystemComment on above:Performed By: #### CH8 ####[facility] PATHOLOGY MKARNEYDJM3564[address] [place] [address], [address]QLNHQ GAPNormalThe [facility] SystemComment on above:Result Comment: Unable to calculate the anion gap when the CO2 is >45 mmol/L.Performed By: #### CH8 ####[facility] PATHOLOGY XAVGULHGCA[address] [place] [address], [address]Fofrdys [Mass/Vol]8.5 mg/dLLow8.6-10.3The [facility] SystemComment on above:Performed By: #### CH8 ####[facility] PATHOLOGY BDUQCUZIPQ7647 [place], Chloride [Moles/Vol]99 mmol/PSuuuuy38-246Ytq [facility] Center[facility] SystemComment on above: Performed By: #### CH8 ####[facility] PATHOLOGY XJSRQARRLB4923[address] [place] [address], [address]CN1 [Moles/Vol]mmol/UYzcd02-59Dno [facility] Center[facility] SystemComment on above:Performed By: #### CH8 ####[facility] PATHOLOGY SCKBBAUPXI8889[address] [place] [address], [address]Tjpjbzxubo [Mass/Vol]0.68 mg/dLLow 0.70-1.30The [facility] SystemComment on above:Performed By: #### CH8 ####[facility] PATHOLOGY JYCUMRHRSE0560 [place], [address]HBZPCMYRV GFR (CKD-EPI)92 mL/min/1.73sqmNormal>=60The [facility] Center[facility] SystemComment on above: Result Comment: 2020 CKD EPI [...] Inclusion of Race in Diagnosing Kidney Disease. [place] Journal of Kidney Diseases 2021;79(2):268-88.e1.2. N Engl J Med 2020 Vol. 385 Issue 19 Pages 6847-0578Performed By: #### CH8 ####[facility] PATHOLOGY REDABAGMFN9845 [place], [address]Yeszjiz [Mass/Vol]101 mg/dLNormal 74-109The [facility] SystemComment on above:Performed By: #### CH8 ####[facility] PATHOLOGY ZUXMPJSYYO8319 [place], [address]Ragicgllm [Moles/Vol]3.1 mmol/LLow3.5-5.0The [facility] SystemComment on above:Performed By: #### CH8 ####S PATHOLOGY QMQRLVVEXI9803 [place], [address]Rnohnr [Moles/Vol]156 mmol/LCritically dqod017-077Wgz [facility] SystemComment on above:Performed By: #### CH8 ####[facility] PATHOLOGY OKWKGVSTKA1071 [place], [address]Toxc nitrogen [Mass/Vol]17 mg/dLNormal 7-25The [facility] SystemComment on above:Performed By: #### CH8 ####[facility] PATHOLOGY TLUBRHSHAF[address] [place] [address], [address]RRYFL GAP NormalThe [facility] CenterHealth SystemComment on above:Result Comment: Unable to calculate the anion gap when CO2 is >45 mmol/L.Performed By: #### CHI PRADO CH8 ####S PATHOLOGY XDUBMFPBLF1732 [place], [address]Ypcgszq [Mass/Vol]8.7 mg/dLNormal8.6-10.3The [facility] SystemComment on above: Performed By: #### CHI PRADO CH8 ####[facility] MIVXYYPIYT8269 [place], [address]Hixkckqb [Moles/Vol]99 mmol/AXjutop80-914Axi [facility] Center[facility] SystemComment on above:Performed By: #### CHI PRADO CH8 ####[facility] PATHOLOGY IMSQPRNTHY6668 [place], [address]PP6 [Moles/Vol]mmol/DRwei70-81Hpv [facility] SystemComment on above:Performed By: #### CHI PRADO CH8 ####S PATHOLOGY NEBUWAYLXG5788 [place], [address]Asyqhbivae [Mass/Vol]0.72 mg/dLNormal0.70-1.30The [facility] SystemComment on above:Performed By: #### CHI PRADO CH8 ####S PATHOLOGY VDZBNGVDCF5781 [place], [address]DBHRHKCAG GFR (CKD-EPI) 91 mL/min/1.73sqmNormal>=60The [facility] SystemComment on above:Result Comment: 2020 CKD EPI Equation using Creatinine without RaceComment: Estimated glomerular filtration rate (eGFR) is calculated without a race coefficient. Values should be interpreted in the context of the patient's full clinical presentation.Reference:1. Rishi C, Jorge M, Nic SILVA, et al.. A Unifying Approach for GFR Estimation: Recommendations of the NKF-ASN Task Force on Reassessing the Inclusion of Race in Diagnosing Kidney Disease. [place] Journal of Kidney Diseases 202;79(2):268-88.e1.2. N Engl J Med 1 Vol. 385 Issue 19 Pages 1730-4138Performed By: #### CHI PRADO CH8 ####S PATHOLOGY BLNGWQAKQD3026 [place], [address]Wxcaroo [Mass/Vol]99 mg/dLNormal 74-109The [facility] SystemComment on above:Performed By: #### CHI PRADO CH8 ####S PATHOLOGY TUWSEPZGDW9473 [place], Potassium [Moles/Vol]3.4 mmol/LLow3.5-5.0The [facility] SystemComment on above: Performed By: #### CHI PRADO CH8 ####S PATHOLOGY ISWPVMJFLA5986 [place], [address]Gymrvq [Moles/Vol]156 mmol/LCritically cwdo139-104 The [facility] Center[facility] SystemComment on above:Performed By: #### CHI PRADO CH8 ####S PATHOLOGY MLZKFKWIOP9378 [place], [address]Bhwu nitrogen [Mass/Vol]17 mg/dLNormal7-25The [facility] SystemComment on above:Performed By: #### CHI PRADO CH8 ####S PATHOLOGY STBZLSQSSG52[address] [place] [address], [address]XDBWT GAS, ARTERIALon 47-49-4104ZD ABE16.8 mmol/L High-2.0-3.0The [facility] SystemComment on above:Performed By: #### CR BGA ####S PATHOLOGY VOIPQHLOTT4202 [place], [address]WZ FCR482.7 mm CfJmfusm97.0-45.0The [facility] SystemComment on above:Performed By: #### CR BGA ####S PATHOLOGY DUDFFOVTMR16[address] [place] [address], [address]UA PHA> 7.129Docm6.350-7.450The [facility]ro[facility] SystemComment on above: Performed By: #### CR BGA ####S PATHOLOGY IVJCTYLCMV8378[address] [place] [address], [address]TI UW3420 mm VbEyik81-044Lbc [facility] Comment on above:Performed By: #### CR BGA ####[facility] PATHOLOGY TICBEQGHTH5693 [place], [address]CQZ9 (CATEGORY)60%NormalThe [facility] Centerro[facility] SystemComment on above:Performed By: #### CR BGA ####[facility] PATHOLOGY ZYACWGJHVM[address] [place] [address], [address]IEQ5 (Bld) [Moles/Vol] 41 mmol/RKjbl39-81Iwu [facility] SystemComment on above:Performed By: #### CR BGA ####[facility] PATHOLOGY SVBAYNYXSE[address] [place] [address], MODEVentNormalThe [facility] SystemComment on above:Performed By: #### CR BGA ####[facility] PATHOLOGY EHKULJRBDB4029[address] [place] [address], Oxygen saturation in Blood99.9 %High95.0-99.0The [facility] SystemComment on above:Performed By: #### CR BGA ####[facility] PATHOLOGY LTPQPQLNSK974[address] [place] [address], [address]VE ABE24.3 mmol/LHigh-2.0-3.0The [facility] SystemComment on above:Performed By: #### CR BGA ####[facility] PATHOLOGY HUMADWEVZL[address] [place] [address], [address]GS HCO3> 42Fwkj67-99Fte [facility] SystemComment on above:Performed By: #### CR BGA ####[facility] PATHOLOGY KGKKLXKTRQ9346[address] [place] [address], [address]CP RAG548.5 mm Hg Critically high35.0-45.0The [facility] SystemComment on above:Performed By: #### CR BGA ####[facility] PATHOLOGY IJQXEHMNIA0439[address] [place] [address], [address]VV PHA7.119Bcyi1.350-7.450The [facility] SystemComment on above: Performed By: #### CR BGA ####[facility] PATHOLOGY DTVCEHDDVL486[address] [place] [address], [address]CP PO271 mm TrSsw34-790Pfp [facility] Comment on above:Performed By: #### CR BGA ####[facility] PATHOLOGY KEHTOPRNBS7809[address] [place] [address], [address]YXE2 (CATEGORY)50%NormalThe [facility] SystemComment on above:Performed By: #### CR BGA ####[facility] PATHOLOGY ENDLDWKAJF024[address] [place] [address], [address]ZVXCKTOVMNlusbdHwb [facility] SystemComment on above:Performed By: #### CR BGA ####[facility] PATHOLOGY SDXPZFAUMU0513[address] [place] [address], [address]Eozjku saturation in Blood95.3 %Alfmej70.0-99.0The [facility] SystemComment on above:Performed By: #### CR BGA ####[facility] PATHOLOGY UKHGZAHFCZ[address] [place] [address], [address]ZU ABE23.5 mmol/LHigh-2.0-3.0The [facility] SystemComment on above: Performed By: #### CR BGA ####[facility] PATHOLOGY YZQQIOWHZI0082[address] [place] [address], [address]KB HCO3> 14Eocg55-58Opq [facility] SystemComment on above:Performed By: #### CR BGA ####[facility] PATHOLOGY BSOEVVDUTB5529[address] [place] [address], [address]BZ CGM327.5 mm HgCritically high35.0-45.0The [facility] SystemComment on above:Performed By: #### CR BGA ####[facility] PATHOLOGY AYSZEIXJRJ5814[address] [place] [address], [address]VE PHA7.480High 7.350-7.450The [facility] SystemComment on above:Performed By: #### CR BGA ####[facility] PATHOLOGY DDPEXKTULL2726[address] [place] [address], [address]VZ PO285 mm GgAhkgfn36-860Pjw [facility] SystemComment on above:Performed By: #### CR BGA ####[facility] PATHOLOGY USKWLSOBVG2064[address] [place] [address], [address]TUL8 (CATEGORY)60%NormalThe [facility] SystemComment on above: Performed By: #### CR BGA ####[facility] PATHOLOGY ZZIRWFDFLS6702 [place], [address]YQRZCFMEIQtyvlyEfx [facility] SystemComment on above:Performed By: #### CR BGA ####[facility] PATHOLOGY ODAWTYVBIH7[address] [place] [address], [address]Ovbtyv saturation in Blood97.2 %Sfsiij50.0-99.0The [facility] SystemComment on above:Performed By: #### CR BGA ####[facility] PATHOLOGY UWIQXCAIXO079[address] [place] [address], [address]DB ABE21.8 mmol/LHigh -2.0-3.0The [facility] SystemComment on above:Performed By: #### CR BGA ####[facility] PATHOLOGY UPHWGKYKYZ[address] [place] [address], [address]YN HCO3> 45 Fnxy08-82Kfy [facility] SystemComment on above:Performed By: #### CR BGA ####[facility] PATHOLOGY XYYCDYMEFY4967[address] [place] [address], [address]YB CEY234.6 mm HgCritically high35.0-45.0The [facility] SystemComment on above: Performed By: #### CR BGA ####[facility] PATHOLOGY AEDIJFOAUB[address] [place] [address], [address]PN PHA7.398Qduh9.350-7.450The [facility] Comment on above:Performed By: #### CR BGA ####[facility] PATHOLOGY IOUVLBHZBB3568[address] [place] [address], [address]VR PO298 mm BoBxvnxu00-692Dbq [facility] SystemComment on above:Performed By: #### CR BGA ####[facility] PATHOLOGY LRTERVLUEM104[address] [place] [address], [address]ZPG1 (CATEGORY)60% NormalThe [facility] SystemComment on above:Performed By: #### CR BGA ####[facility] PATHOLOGY MKONYLKJOU2112[address] [place] [address], [address]XGIWWETXZ NormalThe [facility] SystemComment on above:Performed By: #### CR BGA ####[facility] PATHOLOGY SACZVPCOLG4427 [place], [address]Yiygre saturation in Blood97.9 %Dwpsem43.0-99.0The [facility] SystemComment on above: Performed By: #### CR BGA ####[facility] PATHOLOGY XFYCRLGJNO[address] [place] [address], [address]GDMBGUHP BLOOD COUNTon 86-36-0167Wnctmivlxuc distribution width (RBC) [Ratio]16.3 %High11.5-14.5The [facility] SystemComment on above:Performed By: #### CBC ####[facility] PATHOLOGY EBZYQJIBXJ1323[address] [place] [address], [address]Iboqhqvuua (Bld) [Volume fraction]21.9 %Low 41.0-53.0The [facility] Center[facility] SystemComment on above:Performed By: #### CBC ####[facility] PATHOLOGY SHLYZBSNZG4947[address] [place] [address], [address]Rwiomulqtt (Bld) [Mass/Vol]7.1 g/dLLow13.9-16.3The [facility] Center[facility] SystemComment on above: Performed By: #### CBC ####[facility] PATHOLOGY JATWKZNSNO9822[address] [place] [address], [address]TKE (RBC) [Entitic mass]32.0 ozXldqqs42.0-34.0The [facility] Center[facility] SystemComment on above:Performed By: #### CBC ####[facility] PATHOLOGY TEXJKCOSBA4153[address] [place] [address], [address]IMZS (RBC) [Mass/Vol] 32.5 g/mWNgkkbp93.0-35.9The [facility] Center[facility] SystemComment on above:Performed By: #### CBC ####[facility] PATHOLOGY KCELACQLQB2638[address] [place] [address], [address]JHM (RBC) [Entitic vol]98 qJZglpvr11-862Cpc [facility] SystemComment on above:Performed By: #### CBC ####[facility] PATHOLOGY CWJWKAQZQB1907[address] [place] [address], [address]Fdcesyiy mean volume (Bld) [Entitic vol]6.2 fLLow 7.5-11.2The [facility] SystemComment on above:Performed By: #### CBC ####[facility] PATHOLOGY VTMWRFMQRO[address] [place] [address], [address]Ttnlyfoux (Bld) [#/Vol]449 10*3/jOBwdc521-662Yxm [facility] SystemComment on above: Performed By: #### CBC ####[facility] PATHOLOGY FZSUZUHINC5039[address] [place] [address], [address]GEH (Bld) [#/Vol]2.23 10*6/uLLow4.50-5.90The [facility] SystemComment on above:Performed By: #### CBC ####[facility] PATHOLOGY STSKTFZQDT6544[address] [place] [address], [address]RAP (Bld) [#/Vol]7.8 10*3/uLNormal4.5-11.5The [facility] SystemComment on above:Performed By: #### CBC ####[facility] PATHOLOGY CRXVXKQXZI531[address] [place] [address], Erythrocyte distribution width (RBC) [Ratio]16.8 %High11.5-14.5The [facility] Center[facility] SystemComment on above:Performed By: #### CBC ####[facility] PATHOLOGY ZWOGTEVEYC4184[address] [place] [address], [address]Sexsmilodt (Bld) [Volume fraction]21.3 %Low41.0-53.0The [facility] SystemComment on above:Performed By: #### CBC ####[facility] PATHOLOGY [id number] [place] [address], Hemoglobin (Bld) [Mass/Vol]7.1 g/dLLow13.9-16.3The [facility] Centerro[facility] SystemComment on above:Performed By: #### CBC ####[facility] PATHOLOGY [id number] [place] [address], [id number] (RBC) [Entitic mass]32.6 boTnalch31.0-34.0The [facility] Center[facility] SystemComment on above:Performed By: #### CBC ####[facility] PATHOLOGY [address] [place] [address], [address]BSCU (RBC) [Mass/Vol] 33.2 g/kTMlyakk43.0-35.9The [facility] CenterroHealth SystemComment on above:Performed By: #### CBC ####[facility] PATHOLOGY KQNPTFLNQB[address] [place] [address], [address]SJI (RBC) [Entitic vol]98 pBFrbvtf48-221Ylg [facility] CenterroHealth SystemComment on above:Performed By: #### CBC ####[facility] PATHOLOGY OKBNOZEZQB[address] [place] [address], [address]Wksmxaxw mean volume (Bld) [Entitic vol]6.4 fLLow 7.5-11.2The [facility] CenterroHealth SystemComment on above:Performed By: #### CBC ####[facility] PATHOLOGY GOWSVMMRRB6454[address] [place] [address], [address]Mdxyzluqz (Bld) [#/Vol]451 10*3/bWQoyy578-243Awf [facility] CenterroHealth SystemComment on above: Performed By: #### CBC ####[facility] PATHOLOGY FNFLJALHHM[address]72[address] [place] [address], [address]IZJ (Bld) [#/Vol]2.17 10*6/uLLow4.50-5.90The [facility] CenterroHealth SystemComment on above:Performed By: #### CBC ####[facility] PATHOLOGY PVMLGICFUK[address]06[address] [place] [address], [address]ENI (Bld) [#/Vol]8.2 10*3/uLNormal4.5-11.5The [facility] CenterroHealth SystemComment on above:Performed By: #### CBC ####[facility] PATHOLOGY IZRINSDRGG9026[address] [place] [address], Erythrocyte distribution width (RBC) [Ratio]16.7 %High11.5-14.5The [facility] CenterroHealth SystemComment on above:Performed By: #### CBC ####[facility] PATHOLOGY ONOIOMCGRY[address] [place] [address], [address]Cqsjklzcgk (Bld) [Volume fraction]26.2 %Low41.0-53.0The [facility] CenterroHealth SystemComment on above:Performed By: #### CBC ####[facility] PATHOLOGY QDGPFXVITT7797 [place], [place], Hemoglobin (Bld) [Mass/Vol]8.6 g/dLLow13.9-16.3The [facility] CenterroHealth SystemComment on above:Performed By: #### CBC ####[facility] PATHOLOGY BNABTSAOMC[address]25[address] [place] [address], [address]AIR (RBC) [Entitic mass]31.8 raKrhuyv58.0-34.0The [facility] CenterroHealth SystemComment on above:Performed By: #### CBC ####[facility] PATHOLOGY FDTPFYGKDT7589[address] [place] [address], [address]QIBM (RBC) [Mass/Vol] 32.9 g/nQFurryj67.0-35.9The [facility] CenterHealth SystemComment on above:Performed By: #### CBC ####[facility] PATHOLOGY ZCWQZTACOF3556[address] [place] [address], [address]IGD (RBC) [Entitic vol]97 qZYqziom18-930Suk [facility] CenterroHealth SystemComment on above:Performed By: #### CBC ####[facility] PATHOLOGY JGUOGFDFFL4418[address] [place] [address], [address]Nskggezq mean volume (Bld) [Entitic vol]6.2 fLLow 7.5-11.2The [facility] SystemComment on above:Performed By: #### CBC ####[facility] PATHOLOGY RMYWVTRKGS0049[address] [place] [address], [address]Cyrfafjtu (Bld) [#/Vol]565 10*3/zUNplw296-450Wxm [facility] CenterroHealth SystemComment on above: Performed By: #### CBC ####[facility] PATHOLOGY VMMWHYZMUH[address]07[address] [place] [address], [address]EGD (Bld) [#/Vol]2.71 10*6/uLLow4.50-5.90The [facility] SystemComment on above:Performed By: #### CBC ####[facility] PATHOLOGY OSSHFFWYZT6998[address] [place] [address], [address]PAH (Bld) [#/Vol]14.0 10*3/uLHigh4.5-11.5The [facility] SystemComment on above:Performed By: #### CBC ####S PATHOLOGY GYIZYGDOUW3111 [place], [address]UJ CHEST/ABD/PELVIS W/ CONTRASTon 23-97-9371YQ CHEST/ABD/PELVIS W/ CONTRASTNormal The [facility] SystemCTA CHEST PULMONARY EMBOLISM W/on 97-69-2465ZCV CHEST PULMONARY EMBOLISM W/NormalThe [facility] SystemConsultson 06-01-2024 Mechanic Chief Authentication Interface Message TextNormCleveland Clinic [facility] System Mechanic Chief Authentication Interface Message TextPhysical therapy Attempted to see. Pt just re-intubated and RNs asked to defer treatment until BP is stable Will attempt at later time/date Sharyn Waldron, PTNormalThe [facility] SystemMAGNESIUMon 25-32-3203Akzzjjqdw [Mass/Vol]2.4 mg/dLNormal1.9-2.7The [facility] SystemComment on above:Performed By: #### CHI PRADO CH8 ####[facility] YRXFXEWLGU0067 [place], [address]FFOA SCREENon 00-10-0820OTHM DNA JASMINA+probe Ql (Unsp spec)CMR: No methicillin resistant Staphylococcus aureus isolated.NormalNo methicillin resistant Staphylococcus aureus isolated.The [facility] SystemComment on above: Performed By: #### CMR ####[facility] Hxhjtynpj8032 [place], [place]PHOSPHORUSon 35-11-7135Obadmrocu [Mass/Vol]3.2 mg/dLNormal2.5-5.0 The [facility] SystemComment on above:Performed By: #### CHI PRADO CH8 ####[facility] QOWQBNWPEX5768 [place], [address]Xtdyuzbbbcuc 26-66-3028Yeaibdnhskmks Authentication Interface Message TextNoC[facility] SystemProgress Noteson 03-28-0042Ikxguzurxdzfh Authentication Interface Message TextNoC[facility] SystemTranscription Authentication Interface Message TextNoC[facility] SystemTranscription Authentication Interface Message [id number] being prepared for intubation at the bedside. 0846-30 mg etomidate IV push given, 100 mg rocuronium IV push given. 0847-patient being bagged with 100% O2. 0848- #8.0 @ 24 lip, positive color change noted, bilateral breath sounds heard. NormalThe [facility] SystemTranscription Authentication Interface Message Text Dr. Mills notified of critical PCO2 value of 68.5. Dr. Mills read back critical results. New orders not received.NormalThe [facility] System Mechanic Chief Authentication Interface Message TextMount [facility] System RED BLOOD CELL COMPONENTon 75-09-0488HH ORDER ITEMProduct status info to follow [facility] SystemComment on above:Performed By: #### RBO ####[facility] PATHOLOGY MTTOAHGNUS9712[address] [place] [address], [address]IH ORDER ITEM Product status info to followMount Sinai Hospital SystemComment on above: Performed By: #### RBO ####[facility] PATHOLOGY UKNXRIYKCH0558[address] [place] [address], [address]OTA BLOOD CELL UNIT STATUSon 06-51-4520TULCF PRODUCT [id number] [facility] SystemComment on above:Performed By: #### RBU ####[facility] PATHOLOGY CKWTYUIFMR475[address] [place] [address], [address]HEXCS PRODUCT DESCRIPTIONRed Blood CellsMount Sinai Hospital System Comment on above:Performed By: #### RBU ####[facility] PATHOLOGY RRXCNPWXNL3476[address] [place] [address], [address]SIHXM PRODUCT STATUSTransfusedNormal [facility] SystemComment on above:Performed By: #### RBU ####[facility] PATHOLOGY VVVURIIHBF7648[address] [place] [address], [address]JEXNS PRODUCT UNIT INFO [id number] [facility] SystemComment on above:Performed By: #### RBU ####[facility] PATHOLOGY ZCQKVOLTPN1763[address] [place] [address], BLOOD PRODUCT UNIT [id number] Sinai Hospital SystemComment on above:Result Comment: A PosPerformed By: #### RBU ####[facility] PATHOLOGY YMZRGLDBUU8572 [place], [address]GNQAOQBQAM INTERPRETATIONCompatible (E)NormalThe [facility] SystemComment on above:Performed By: #### RBU ####S PATHOLOGY EBXJVJRQIK6303[address] [place] [address], [address]DYXDJ PRODUCT [id number] [facility] SystemComment on above:Performed By: #### RBU ####[facility] PATHOLOGY DBSXBRTRJS6333[address] [place] [address], BLOOD PRODUCT DESCRIPTIONRed Blood CellsMount Sinai Hospital SystemComment on above:Performed By: #### RBU ####[facility] PATHOLOGY WKTIDSHOUF6325[address] [place] [address], [address]YJUAA PRODUCT STATUSTransfusedNormalThe [facility] SystemComment on above:Performed By: #### RBU ####[facility] PATHOLOGY ZHTNLDWDYM344[address] [place] [address], [address]ADTDF PRODUCT UNIT INFO [id number] [facility] SystemComment on above:Performed By: #### RBU ####[facility] PATHOLOGY RFJJIEIPHJ115[address] [place] [address], BLOOD PRODUCT UNIT [id number] Clinic Mercy Hospital SystemComment on above:Result Comment: A PosPerformed By: #### RBU ####[facility] PATHOLOGY KCLFRPWHDC92[address] [place] [address], [address]YOBTBQLDCN INTERPRETATIONCompatible (E)NormalMercy Health [facility] Hospital SystemComment on above:Performed By: #### RBU ####[facility] PATHOLOGY BZCRFDESXT1917[address] [place] [address], [address]HLOU AND SCREENon 25-56-6207WXD and Rh group Nom (Bld)Blood group A Rh(D) positiveNormal The [facility] SystemComment on above:Performed By: #### TS ####[facility] PATHOLOGY VQFQFUIXAT4567[address] [place] [address], [address]PESF INTNegativeNormal The [facility] SystemComment on above:Performed By: #### TS ####[facility] PATHOLOGY COLCUAYNRC2188 [place], [address]LV ABDOMEN AP 1 VIEWon 59-00-3155RQ ABDOMEN AP 1 VIEWNoCleveland Clinic [facility] Hospital SystemXR Abdomen APon 07-64-6415GSUNLVQCTWO: XR ABDOMEN AP 1 VIEW 06/01/2024 06:34 AM CLINICAL HISTORY: monitoring large bowel dilation ASSOCIATED DIAGNOSIS: ORDERING PROVIDER: KATIE MILLS TECHNOLOGISTS NOTE: COMPARISON: XR ABDOMEN AP 1 VIEW [...] is nonspecific with mild dilation of the transversecolon. Redemonstrated pelvic fractures. A Maher catheter projects over the pelvis IMPRESSION: Decreased colonic distention with nonspecific bowel gas pattern. Exam is otherwise limited due to supine patient positioning. If there is concern for obstruction, CT can be performed. MACRO: None Clare Bagley MD - 06/01/2024 EXAMINATION: XR ABDOMEN AP 1 VIEW 06/01/2024 06:34 AM CLINICAL HISTORY: monitoring large bowel dilation ASSOCIATED DIAGNOSIS: ORDERING PROVIDER: KATIE MILLS TECHNNINOSKA NOTE: COMPARISON: XR ABDOMEN AP 1 VIEW [...] is nonspecific with mild dilation of the transversecolon. Redemonstrated pelvic fractures. A Maher catheter projects over the pelvis IMPRESSION: Decreased colonic distention with nonspecific bowel gas pattern. Exam is otherwise limited due to supine patient positioning. If there is concern for obstruction, CT can be performed. MACRO: None [facility] IncRadiology Study observation (narrative)[facility] Abdomen AP Ordered By: Clare Choe on 70-40-7590FxdmlLlankn Work Phone: XR CHEST AP OR PA 1 VIEWon 45-24-9985NK CHEST AP OR PA 1 VIEWNormalThe [facility] SystemXR CHEST AP OR PA 1 VIEWNormalThe [facility] Centerro[facility] SystemXR CHEST AP OR PA 1 VIEWNormMorrow County Hospitale [facility] SystemBASIC METABOLIC PANEL on 68-64-4699Cmayg gap [Moles/Vol]12 mmol/FOquafu33-48Voc [facility] System Comment on above:Performed By: #### CHI PRADO CH8 ####[facility] ACOPLJEAIT7247 [place], [address]Cngoywr [Mass/Vol]8.6 mg/dLNormal8.6-10.3The [facility] SystemComment on above:Performed By: #### CHI PRADO CH8 ####[facility] PATH[facility] DCTDNJYCIC8612 [place], [place], [address]Chloride [Moles/Vol]99 mmol/RXqosgy03-093Vxa [facility] SystemComment on above:Performed By: #### CHI PRADO CH8 ####[facility] QBPMCEHIMS5677 [place], [address]SV3 [Moles/Vol]40 mmol/GJwli18-44Hfj [facility] SystemComment on above:Performed By: #### CHI PRADO CH8 ####[facility] BEHBTHESQD4935 [place], [address]Setnmumkpn [Mass/Vol]0.77 mg/dLNormal0.70-1.30The [facility] SystemComment on above: Performed By: #### CHI PRADO CH8 ####[facility] UTRBBETCOQ4283 [place], [address]MEZNCZHJM GFR (CKD-EPI)89 mL/min/1.73sqmNormal>=60 The [facility] SystemComment on above:Result Comment: 2020 CKD EPI Equation using Creatinine without RaceComment: Estimated glomerular filtration rate (eGFR) is calculated without a race coefficient. Values should be interpreted in the context of the patient's full clinical presentation.Reference:1. Rishi C, Jorge M, Nic SILVA, et al.. A Unifying Approach for GFR Estimation: Recommendations of the NKF-ASN Task Force on Reassessing the Inclusion of Race in Diagnosing Kidney Disease. [place] Islander Journal of Kidney Diseases 2021;79(2):26 8-88.e1.2. N Engl J Med 1 Vol. 385 Issue 19 Pages 5598-5210Performed By: #### CHI PRADO CH8 ####[facility] INMICTRQBF1308 [place], [address]Oyxfwva [Mass/Vol]113 mg/cGBxwq74-456Lwb [facility] SystemComment on above:Performed By: #### CHI PRADO CH8 ####[facility] TBWKARTEAZ2986 [place], [address]Zqxwjdnob [Moles/Vol]3.1 mmol/LLow 3.5-5.0The [facility] CenterroHealth SystemComment on above:Performed By: #### CHI PRADO CH8 ####[facility] BZIKSQYVAJ6886 [place], [place], Sodium [Moles/Vol]148 mmol/VNzze824-819Cge [facility] SystemComment on above: Performed By: #### CHI PRADO CH8 ####[facility] QYLLNAHSSZ9316 [place], [address]Llbu nitrogen [Mass/Vol]18 mg/dLNormal7-25The [facility] CenterHealth SystemComment on above:Performed By: #### CHI PRADO CH8 ####[facility] YUTVMXHMGQ5430 [place], [address]YYQOF GAS, ARTERIALon 20-26-5961ZG ABE14.8 mmol/LHigh-2.0-3.0The [facility] CenterHealth SystemComment on above:Performed By: #### CR BGA ####[facility] OCGGNIFPDR8521 [place], [address]AP RDG589.9 mm GiYmcj01.0-45.0The [facility] CenterroHealth SystemComment on above:Performed By: #### CR BGA ####[facility] PATHOLOGY FTATNUBOUJ[address] [place] [address], [address]IW PHA7.490High 7.350-7.450The [facility] CenterroHealth SystemComment on above:Performed By: #### CR BGA ####[facility] PATHOLOGY BNAGCMHDTT[address] [place] [address], [address]CW PO266 mm HiZxp47-489Kqq [facility] SystemComment on above:Performed By: #### CR BGA ####[facility] PATHOLOGY HCCXOUNXZY8147[address] [place] [address], FIO2 (CATEGORY)60%NormalThe [facility] CenterroHealth SystemComment on above:Performed By: #### CR BGA ####[facility] PATHOLOGY HAWFHPYDCV3945[address] [place] [address], [address]CHN7 (Bld) [Moles/Vol]40 mmol/RKntu42-26Thl [facility]ro[facility] SystemComment on above:Performed By: #### CR BGA ####[facility] PATHOLOGY PDELEWQUHL9158[address] [place] [address], [address]CYNNRsolt CanulaNormalThe [facility] System Comment on above:Result Comment: 60LPerformed By: #### CR BGA ####[facility] PATHOLOGY MHMJGAVJQT[address] [place] [address], [address]Ksnwri saturation in Blood94.2 %Low95.0-99.0The [facility] CenterroHealth SystemComment on above:Performed By: #### CR BGA ####[facility] PATHOLOGY XBGPIKYFRH74[address] [place] [address], [address]NR ABE15.2 mmol/LHigh-2.0-3.0The [facility] Centerro[facility] SystemComment on above: Performed By: #### CR BGA ####[facility] PATHOLOGY LJXQECFRRZ4685[address] [place] [address], [address]ZL UZS110.5 mm YeDjdu63.0-45.0The [facility] Centerro[facility] SystemComment on above:Performed By: #### CR BGA ####[facility] PATHOLOGY ILMGQMLTNK848[address] [place] [address], [address]WZ PHA7.471High 7.350-7.450The [facility] CenterroHealth SystemComment on above:Performed By: #### CR BGA ####[facility] PATHOLOGY EMJMGBLLFC2764[address] [place] [address], [address]WD FW2526 mm KxXrpy30-471Xfh [facility] SystemComment on above:Performed By: #### CR BGA ####[facility] PATHOLOGY RRDTVOUNCX[address] [place] [address], [address]VEO5 (CATEGORY)70%NormalThe [facility] CenterroHealth SystemComment on above: Performed By: #### CR BGA ####[facility] PATHOLOGY XIJCIMRKRY0694[address] [place] [address], [address]ZNF5 (Bld) [Moles/Vol]41 mmol/VQumf58-95Izu [facility] Centerro[facility] SystemComment on above:Performed By: #### CR BGA ####[facility] PATHOLOGY NAINKXUSVU0724[address] [place] [address], [address]VAXJXJRJMCqkhvfDks [facility] SystemComment on above:Performed By: #### CR BGA ####[facility] PATHOLOGY UUKLCCKSYZ0718[address] [place] [address], [address]Eyjulw saturation in Blood99.8 %High95.0-99.0The [facility] Centerro[facility] SystemComment on above:Performed By: #### CR BGA ####[facility] PATHOLOGY QMDXMLTBIB1229[address] [place] [address], [address]DXQMQLCC BLOOD COUNTon 13-42-2558Pjgsfzyeopt distribution width (RBC) [Ratio]16.1 %High11.5-14.5The [facility] CenterroHealth SystemComment on above:Performed By: #### CBC ####[facility] PATHOLOGY RZPHKWRLKL0511[address] [place] [address], [address]Eyilrftfeq (Bld) [Volume fraction]25.2 %Low41.0-53.0The [facility] CenterroHealth SystemComment on above:Performed By: #### CBC ####[facility] PATHOLOGY QHRDHTJGCW214[address] [place] [address], [address]Fpsiuvitoe (Bld) [Mass/Vol]8.2 g/dLLow 13.9-16.3The [facility] CenterroHealth SystemComment on above:Performed By: #### CBC ####[facility] PATHOLOGY MVCCALGCUD4771 [place], [address]NAB (RBC) [Entitic mass]31.4 boGwusyt56.0-34.0The [facility] Center[facility] SystemComment on above: Performed By: #### CBC ####[facility] PATHOLOGY SMFDKJNZAY1397[address] [place] [address], [address]AEUA (RBC) [Mass/Vol]32.6 g/cESydfff44.0-35.9The [facility] CenterHealth SystemComment on above:Performed By: #### CBC ####[facility] PATHOLOGY IEIUAIKNTG6388[address] [place] [address], [address]CFM (RBC) [Entitic vol] 96 wAWofkcn45-757Kyy [facility] CenterHealth SystemComment on above:Performed By: #### CBC ####[facility] PATHOLOGY ULXRSMJCLJ984[address] [place] [address], Platelet mean volume (Bld) [Entitic vol]6.2 fLLow7.5-11.2The [facility] System Comment on above:Performed By: #### CBC ####[facility] PATHOLOGY FNBGCMJCCR5796[address] [place] [address], [address]Aguycwbbv (Bld) [#/Vol]548 10*3/uLHigh 150-400The [facility] SystemComment on above:Performed By: #### CBC ####[facility] PATHOLOGY IANXAHBGMT0026[address] [place] [address], [address]TSV (Bld) [#/Vol]2.62 10*6/uLLow4.50-5.90The [facility] SystemComment on above:Performed By: #### CBC ####[facility] PATHOLOGY EUVFNHPIYN8914[address] [place] [address], [address]OQY (Bld) [#/Vol]14.9 10*3/uLHigh4.5-11.5The [facility] SystemComment on above:Performed By: #### CBC ####[facility] PATHOLOGY AJYJDOKKQD9722[address] [place] [address], [address]TJ ABDOMEN/PELVIS W/ CONTRASTon 14-48-6256ZD ABDOMEN/PELVIS W/ CONTRASTNormalThe [facility] CenterroHealth SystemMAGNESIUMon 05-31-2024 Magnesium [Mass/Vol]2.8 mg/dLHigh1.9-2.7The [facility] SystemComment on above: Performed By: #### CHI PRADO CH8 ####[facility] PSUADZRTUF7480 [place], [address]LDFQNTYQEAdm 56-53-5618Vzweorsxc [Mass/Vol]3.4 mg/dLNormal2.5-5.0The [facility] SystemComment on above:Performed By: #### CHI PRADO, CH8 ####[facility] YRFJYFBHVT7058 [place], [place], [address]Progress Noteson 24-45-9822Ywxqcjuhkpnlm Authentication Interface Message TextNormMorrow County Hospitale [facility] CenterroMatch [facility] SystemXR ABDOMEN AP 1 VIEWon 87-20-7402TE ABDOMEN AP 1 VIEWNormalThe [facility] Centerro[facility] SystemXR CHEST AP OR PA 1 VIEWon 56-73-1884AH CHEST AP OR PA 1 VIEWNormalThe [facility] CenterroMatch Point Partners SystemXR Chest Single viewon 27-50-6358PAOTLEKIXKI: XR CHEST AP OR PA 1 VIEW 05/31/2024 06:24 AM CLINICAL HISTORY: Endotracheal tube assessment ASSOCIATED DIAGNOSIS: Endotracheal tube assessment ORDERING PROVIDER: MATT BARBA TECHNNINOSKA NOTE: COMPARISON: XR CHEST AP OR [...] with physical exam is recommended to determine ifit is present. MACRO: None Marek Mart MD - 05/31/2024 EXAMINATION: XR CHEST AP OR PA 1 VIEW 05/31/2024 06:24 AM CLINICAL HISTORY: Endotracheal tube assessment ASSOCIATED DIAGNOSIS: Endotracheal tube assessment ORDERING PROVIDER: MATT FINKENTHAL TECHNOLOGISTS NOTE: COMPARISON: XR CHEST AP OR [...] with physical exam is recommended to determine ifit is present. MACRO: None [facility]Rad[facility] Study observation (narrative)[facility]XR Chest Single viewOrdered By: Marek Rodríguez on 14-48-2715DzqtiJapefc Work Phone: [phone]:1 Interactionon 80-95-4205Qwsmuaepqzfla Authentication Interface Message TextNormalThe [facility] SystemBASIC METABOLIC PANELon 69-67-0354Cfzev gap [Moles/Vol]11 mmol/WBzuxoi88-88Zmv [facility] SystemComment on above:Performed By: #### CHI PRADO CH8 ####[facility] LSUWPDFRXI5951 [place], [address]Zzbprxe [Mass/Vol]8.2 mg/dLLow8.6-10.3The [facility] SystemComment on above:Performed By: #### CHI PARDO CH8 ####[facility] EPHLUNFHIQ3173 [place], [place], [address]Chloride [Moles/Vol]102 mmol/RNhkcfm49-770Bje [facility] SystemComment on above:Performed By: #### CHI PRADO CH8 ####[facility] PATH[facility] DEHCAMGGLX5187 [place], [address]XY2 [Moles/Vol]32 mmol/ZIhfk31-48Fhc [facility] SystemComment on above:Performed By: #### CHI PRADO CH8 ####[facility] PATHOLOG[facility] XGRNLQGEAK0046 [place], [address]Yjzgnrrrtc [Mass/Vol]0.66 mg/dLLow0.70-1.30The [facility] CenterroHealth SystemComment on above:Performed By: #### CHI PRADO CH8 ####[facility] IOBKQOVSET7914 [place], [address]SJMVMHWFY GFR (CKD-EPI)93 mL/min/1.73sqmNormal>=60 The [facility] SystemComment on above:Result Comment: 2020 CKD EPI Equation using Creatinine without RaceComment: Estimated glomerular filtration rate (eGFR) is calculated without a race coefficient. Values should be interpreted in the context of the patient's full clinical presentation.Reference:1. Rishi C, Jorge M, Nic SILVA, et al.. A Unifying Approach for GFR Estimation: Recommendations of the NKF-ASN Task Force on Reassessing the Inclusion of Race in Diagnosing Kidney Disease. [place] Journal of Kidney Diseases 2021;79(2):26 8-88.e1.2. N Engl J Med 2020 Vol. 385 Issue 19 Pages 8090-8113Performed By: #### CHI PRADO CH8 ####[facility] JUAACGZTFM7331 [place], [address]Rrbgimg [Mass/Vol]141 mg/hRQjkf21-183Znk [facility] SystemComment on above:Performed By: #### CHI PRADO CH8 ####[facility] VOAFFAOPZN8881 [place], [address]Fiddcoazl [Moles/Vol]4.1 mmol/LNormal 3.5-5.0The [facility] [facility] SystemComment on above:Performed By: #### CHI PRADO CH8 ####[facility] PATH[facility] UNJRCKKBPM3533 [place], [place], Sodium [Moles/Vol]141 mmol/XPlctkx993-453Hhl [facility] SystemComment on above: Performed By: #### CHI PRADO CH8 ####MHAlfonzo PATHOLOGY JNLGBHAEKS8644 [place], [address]Ayna nitrogen [Mass/Vol]16 mg/dLNormal7-25The [facility] SystemComment on above:Performed By: #### HCI PRADO CH8 ####[facility] PATHOLOGY FYRAPANOUN9948 [place], [address]FEEIP GAS, ARTERIALon 15-53-4548MI ABE7.7 mmol/LHigh-2.0-3.0The [facility] SystemComment on above:Performed By: #### CR BGA ####[facility] PATHOLOGY ZHZGAHWTDA[address] [place] [address], [address]ZN DIG929.4 mm IvGiho99.0-45.0The [facility] SystemComment on above:Performed By: #### CR BGA ####[facility] PATHOLOGY VVOWCFXQEM[address] [place] [address], [address]XL PHA7.440Normal 7.350-7.450The [facility] SystemComment on above:Performed By: #### CR BGA ####[facility] PATHOLOGY GUDXDHRWGR0815[address] [place] [address], [address]KH QH8396 mm YjSgdc70-036Gyq [facility] SystemComment on above:Performed By: #### CR BGA ####[facility] PATHOLOGY FQIZTHXVPY5018[address] [place] [address], [address]GDO4 (CATEGORY)70%NormalThe [facility] SystemComment on above: Performed By: #### CR BGA ####[facility] PATHOLOGY NMQXZSLCXL5237[address] [place] [address], [address]OVJ0 (Bld) [Moles/Vol]32 mmol/PAofi92-33Ixq [facility] SystemComment on above:Performed By: #### CR BGA ####[facility] PATHOLOGY EHPCHVEWRZ[address] [place] [address], [address]YPRWPAFXQNesuxnBsv [facility] SystemComment on above:Performed By: #### CR BGA ####[facility] PATHOLOGY BPNBCGGZMS1797[address] [place] [address], [address]Snaxuz saturation in Blood99.4 %High95.0-99.0The [facility] SystemComment on above:Performed By: #### CR BGA ####[facility] PATHOLOGY LSJORJOZRW2169[address] [place] [address], [address]GC ABE4.4 mmol/LHigh-2.0-3.0The [facility] SystemComment on above: Performed By: #### CR BGA ####[facility] PATH[facility] WCBPMOKPKH6701 [place], [address]YK AXZ532.7 mm MdOxio20.0-45.0The [facility] SystemComment on above:Performed By: #### CR BGA ####[facility] PATHOLOGY CSIURKILOH6435 [place], [address]GE PHA7.417Normal 7.350-7.450The [facility] SystemComment on above:Performed By: #### CR BGA ####[facility] PATHOLOGY FIDKZHULLW[address] [place] [address], [address]ZL JA6702 mm KvKdxh45-378Xjg [facility] SystemComment on above:Performed By: #### CR BGA ####[facility] PATHOLOGY NFXNCKZYJH[address] [place] [address], [address]VOA5 (CATEGORY)40%NormalThe [facility] Center[facility] SystemComment on above: Performed By: #### CR BGA ####[facility] PATHOLOGY IBNNVYAGQA5757[address] [place] [address], [address]UGG1 (Bld) [Moles/Vol]29 mmol/PVepn00-08Vwb [facility] SystemComment on above:Performed By: #### CR BGA ####[facility] PATHOLOGY FRJDPLZOOB6054[address] [place] [address], [address]LGMTOnjzKgspjjAgo [facility] SystemComment on above:Performed By: #### CR BGA ####[facility] PATHOLOGY RACUAGNHNM4706[address] [place] [address], [address]Gcxfcx saturation in Blood98.7 %Flwacc53.0-99.0The [facility] SystemComment on above:Performed By: #### CR BGA ####[facility] PATHOLOGY DNCJEHXBIJ154[address] [place] [address], [address]NIHPOAJFEM ALT PATH AH50on 35-99-6699MJWZCEIQRH, ALT PATH, FUNC63 %of normNormal>=46The [facility] SystemComment on above:Order Comment: Resulting Agency Address Site ID: MYM Name: [facility] Address: [facility] [place] [address] Director: Jeff Tejada M.D. Ph.D. Result Comment: ADDITIONAL INFORMATION This test was developedand its performance characteristicsdetermined by [facility] in a manner consistent with CLIArequirements. This test has not been cleared or approved bythe U.S. Food and Drug Administration.Performed By: #### CMPAH50 ####[facility] Ljadfrnce[address] [place], [place] [address]COMPLETE BLOOD COUNTon 43-84-0442Auyzicqnfsx distribution width (RBC) [Ratio]16.1 %High 11.5-14.5The [facility] SystemComment on above:Performed By: #### CBC ####[facility] PATHOLOGY HUNRMCUFWR4476[address] [place] [address], [address]Bxmviuatey (Bld) [Volume fraction]27.7 %Low41.0-53.0The [facility] SystemComment on above: Performed By: #### CBC ####[facility] PATHOLOGY XJTSPVLWUD6678[address] [place] [address], [address]Yoorqjmvig (Bld) [Mass/Vol]9.1 g/dLLow13.9-16.3The [facility] SystemComment on above:Performed By: #### CBC ####[facility] PATHOLOGY RSJHWMHJTK9745[address] [place] [address], [address]NDB (RBC) [Entitic mass]31.1 vyZituvk02.0-34.0The [facility] SystemComment on above:Performed By: #### CBC ####S PATHOLOGY RODLNUKKUC4804 [place], [address]KJAB (RBC) [Mass/Vol]32.9 g/hUFaoqmw30.0-35.9The [facility] System Comment on above:Performed By: #### CBC ####[facility] PATHOLOGY AEXUQQDFHL5699 [place], [address]UQS (RBC) [Entitic vol]95 fLNormal 80-100The [facility] SystemComment on above:Performed By: #### CBC ####S PATHOLOGY WGKGZDKEGS0702 [place], [address]Dzjdimes mean volume (Bld) [Entitic vol]6.1 fLLow7.5-11.2The [facility] SystemComment on above:Performed By: #### CBC ####[facility] PATHOLOGY PIQTMHAHEG2439[address] [place] [address], [address]Sjbrqpsdm (Bld) [#/Vol]588 10*3/tFJckx581-552Xri [facility] SystemComment on above:Performed By: #### CBC ####[facility] PATHOLOGY KJIGORNMNS3235[address] [place] [address], [address]YAA (Bld) [#/Vol]2.93 10*6/uLLow4.50-5.90The [facility] SystemComment on above:Performed By: #### CBC ####[facility] PATHOLOGY XGAKIWZUGC8200[address] [place] [address], [address]EAP (Bld) [#/Vol]15.2 10*3/uLHigh4.5-11.5The [facility] SystemComment on above: Performed By: #### CBC ####[facility] PATHOLOGY ISZOUBJPEU9[address] [place] [address], [address]QTMOIEBQBgk 15-12-7176Uixhxydaz [Mass/Vol]1.9 mg/dLNormal1.9-2.7The [facility] Center[facility] SystemComment on above:Performed By: #### CHI PRADO CH8 ####[facility] PATHOLOGY SAEOHCPONS[address] [place] [address], 44 109PHOSPHORUSon 61-96-8723Bvicdiaqv [Mass/Vol]3.0 mg/dLNormal2.5-5.0The [facility] SystemComment on above:Performed By: #### CHI PRADO CH8 ####[facility] PATHOLOGY ZZLCKKWVXZ7285[address] [place] [address], [address]Wfhxpdtd Noteson 69-67-3949Sxzggzrtamlaw Authentication Interface Message TextNormMorrow County Hospitale [facility] SystemTranscription Authentication Interface Message TextNormMorrow County Hospitale [facility] SystemXR ABDOMEN AP 1 VIEWon 70-85-2638JE ABDOMEN AP 1 VIEWNormalThe [facility] SystemXR CHEST AP OR PA 1 VIEWon 67-69-7496TM CHEST AP OR PA 1 VIEW NormalThe [facility] SystemXR Chest Single viewon 96-64-3687VFWRZQMWQHD: XR CHEST AP OR PA 1 VIEW [...] devices with unchanged pulmonary findings, as detailed. Vignesh Luevano MD - 05/30/2024 EXAMINATION: XR CHEST AP [...] devices with unchanged pulmonary findings, as detailed. [facility] Study observation (narrative)[facility]XR Chest Single viewOrdered By: Vignesh Higuera on 57-13-6737TsjzoPlrump Work Phone: [phone] Interactionon 64-67-1230Pwpivbtyicexe Authentication Interface Message TextNormalThe [facility] SystemBASIC METABOLIC PANELon 76-47-6323Zbizs gap [Moles/Vol]10 mmol/NMxjdzg97-94Yis [facility] CenterHealth SystemComment on above:Performed By: #### AMMON, MG, PHOS, VANC R ####[facility] GVGUTGPZBV9804 [place], [address]Lfzxkfi [Mass/Vol]8.4 mg/dLLow8.6-10.3The [facility] SystemComment on above:Performed By: #### CH8, MG, PHOS, VANC R ####[facility] PATH[facility]Y PKGWOYVSNZ2530 [place], [address]Stbsdusg [Moles/Vol]102 mmol/BRokrob94-430Gtt [facility] SystemComment on above:Performed By: #### LLOYD8, MG, PHOS, VANC R ####[facility] PATH[facility] ENQXXWFEBR3972 [place], [address]EK7 [Moles/Vol]34 mmol/KOsth40-68Cgb [facility] CenterHealth SystemComment on above:Performed By: #### CH8, MG, PHOS, VANC R ####[facility] PATH[facility] XXBSMDHMOY7884 [place], [address]Rjsagsppxn [Mass/Vol]0.66 mg/dLLow0.70-1.30The [facility] SystemComment on above:Performed By: #### AMMON, MG, PHOS, VANC R ####[facility] SFXEPCMPAC4356 [place], ESTIMATED GFR (CKD-EPI)93 mL/min/1.73sqmNormal>=60The [facility] SystemComment on above:Result Comment: 2020 CKD EPI Equation using Creatinine without RaceComment: Estimated glomerular filtration rate (eGFR) is calculated without a race coefficient. Values should be interpreted in the context of the patient's full clinical presentation.Reference:1. Rishi Jose, Jorge M, Nic SILVA, et al.. A Unifying Approach for GFR Estimation: Recommendations of the NKF-ASN Task Force on Reassessing the Inclusion of Race in Diagnosing Kidney Disease. [place] Journal of Kidney Diseases 2021;79(2):268-88.e1.2. N Engl J Med 1 Vol. 385 Issue 19 Pages 6381-0467Performed By: #### MG VERDE PHOS, VANC R ####[facility] WQCIXOGUTM6705 [place], [address]Blhbbyt [Mass/Vol]89 mg/uZRkvjvs55-328Tca [facility] SystemComment on above:Performed By: #### AMMON, CHI PRADO VANC R ####[facility] PATH[facility]Y TXDIEHFBLB5031 [place], [address]Virsjpnsk [Moles/Vol]4.1 mmol/LNormal3.5-5.0The [facility] SystemComment on above:Performed By: #### MG VERDE PHOS, VANC R ####S PATHOLOGY HZBQGHXLHV3303 [place], Sodium [Moles/Vol]142 mmol/KTazeug401-491Lpa [facility] SystemComment on above: Performed By: #### AMMON, CHI PRADO VANC R ####[facility] PATHOLOGY XMWPZUOORE4083 [place], [address]Cwcx nitrogen [Mass/Vol]20 mg/dLNormal 7-25The [facility] SystemComment on above:Performed By: #### AMMON, CHI PRADO VANC R ####[facility] PATH[facility]Y KZZOVVQZJU3496 [place], [address]VRSNR GAS, ARTERIALon 45-37-1891LS ABE9.0 mmol/LHigh-2.0-3.0The [facility] SystemComment on above:Performed By: #### CR BGA ####[facility] PATHOLOGY CPXYFNSCMM4414 [place], [address]YK KSI710.4 mm HgHigh 35.0-45.0The [facility] SystemComment on above:Performed By: #### CR BGA ####[facility] PATHOLOGY SIYBYFQCRR2625 [place], [address]YR PHA7.477Dkhg4.350-7.450The [facility] SystemComment on above:Performed By: #### CR BGA ####[facility] PATHOLOGY ABPTEQYVVT[address] [place] [address], [address]BN PO266 mm EzJed32-881Rui [facility] SystemComment on above: Performed By: #### CR BGA ####[facility] PATHOLOGY NQABUZATVF7[address] [place] [address], [address]ESX2 (CATEGORY)35%NormalThe [facility] System Comment on above:Performed By: #### CR BGA ####[facility] PATHOLOGY XGATFKEDKM7176[address] [place] [address], [address]NQX0 (Bld) [Moles/Vol]33 mmol/LHigh -The [facility] SystemComment on above:Performed By: #### CR BGA ####[facility] PATHOLOGY UKBOCUKIUQ[address] [place] [address], [address]TBSIVtmo NormalThe [facility] Center[facility] SystemComment on above:Performed By: #### CR BGA ####[facility] PATHOLOGY NFCCNIQDUT025[address] [place] [address], [address]Hfrsqp saturation in Blood94.9 %Low95.0-99.0The [facility] SystemComment on above: Performed By: #### CR BGA ####[facility] PATHOLOGY HYTFWDBFZQ8[address] [place] [address], [address]KQFNXLSV BLOOD COUNTon 08-47-3549Mzgawpqswaj distribution width (RBC) [Ratio]15.5 %High11.5-14.5The [facility] Center[facility] SystemComment on above:Performed By: #### CBC ####[facility] PATHOLOGY JWCJPOBYBX2218[address] [place] [address], [address]Avzzazdqnq (Bld) [Volume fraction]25.0 %Low 41.0-53.0The [facility] SystemComment on above:Performed By: #### CBC ####[facility] PATHOLOGY AJPHJTVKLL399[address] [place] [address], [address]Rwpqrmcdio (Bld) [Mass/Vol]8.2 g/dLLow13.9-16.3The [facility] SystemComment on above: Performed By: #### CBC ####[facility] PATHOLOGY HYFHLWUNWE7652 [place], [address]HWU (RBC) [Entitic mass]31.5 giYalewu35.0-34.0The [facility] SystemComment on above:Performed By: #### CBC ####[facility] PATHOLOGY LZEWFARJCF2045[address] [place] [address], [address]OVAG (RBC) [Mass/Vol] 32.8 g/sYYorkbm15.0-35.9The [facility] SystemComment on above:Performed By: #### CBC ####[facility] PATHOLOGY LFCCWMUKLJ508[address] [place] [address], [address]QAR (RBC) [Entitic vol]96 bLDtzjho84-585Qnt [facility] SystemComment on above:Performed By: #### CBC ####[facility] PATHOLOGY PWWUHKZZUR799[address] [place] [address], [address]Fulxitkc mean volume (Bld) [Entitic vol]6.2 fLLow 7.5-11.2The [facility] SystemComment on above:Performed By: #### CBC ####[facility] PATHOLOGY TFVIJNSPTR[address] [place] [address], [address]Agbyasxug (Bld) [#/Vol]517 10*3/nBWcgh846-152Uop [facility] SystemComment on above: Performed By: #### CBC ####[facility] PATHOLOGY UOBUIHOUXG7015[address] [place] [address], [address]KYR (Bld) [#/Vol]2.61 10*6/uLLow4.50-5.90The [facility] SystemComment on above:Performed By: #### CBC ####[facility] PATHOLOGY KCEHKSMUAU4054[address] [place] [address], [address]RQC (Bld) [#/Vol]9.0 10*3/uLNormal4.5-11.5The [facility] SystemComment on above:Performed By: #### CBC ####[facility] PATHOLOGY KODWWJZNSP9158[address] [place] [address], [place] ABDOMEN/PELVIS W/ CONTRASTon 63-46-3651HK ABDOMEN/PELVIS W/ CONTRASTNormalThe [facility] SystemMAGNESIUMon 26-66-7535Ilbxqsekk [Mass/Vol]2.2 mg/dLNormal 1.9-2.7The [facility] SystemComment on above:Performed By: #### MG VERDE PHOS, VANC R ####[facility] JGMEAIKLST9994 [place], [address]NAPLQVILWOym 99-04-5075Fpgydcdit [Mass/Vol]3.0 mg/dLNormal2.5-5.0The [facility] SystemComment on above:Performed By: #### MG VERDE PHOS, VANC R ####[facility] RTTVRVYFNL6167 [place], [place], Progress Noteson 92-67-4396Lmvofoddaasxg Authentication Interface Message Text NormalThe [facility] SystemTranscription Authentication Interface Message Text NormalThe [facility] SystemVANCOMYCIN RANDOMon 72-78-3380TURH R10.4 ug/mLNormal 5.0-40.0The [facility] SystemComment on above:Performed By: #### MG VERDE PHOS, VANC R ####[facility] YUWEVWLFEI5158 [place], [address]OM CHEST AP OR PA 1 VIEWon 11-75-0719JP CHEST AP OR PA 1 VIEWNoWayne HealthCare Main CampusXR Chest Single viewon 97-23-6333WTMFANGVETD: XR CHEST AP OR PA 1 VIEW [...] devices with unchanged pulmonary findings, as detailed. Vignesh Luevano MD - 05/29/2024 EXAMINATION: XR CHEST AP [...] devices with unchanged pulmonary findings, as detailed. [facility] (narrative)[facility]XR Chest Single viewOrdered By: Vignesh Higuera on 23-79-2774MgwqaOjfdyw Work Phone: [phone] Interactionon 80-91-6551Ukfdgmttpozxj Authentication Interface Message TextNormalThe [facility] CenterMatch Point Partners SystemBASIC METABOLIC PANELon 17-77-4932Odwrg gap [Moles/Vol]8 mmol/CFwg33-77Hnl [facility] System Comment on above:Performed By: #### MG, CH8, PHOS ####[facility] PATH[facility] ZUSEMCOYHD1350 [place], [address]Fjjpqju [Mass/Vol]8.4 mg/dLLow8.6-10.3The [facility] Center[facility] SystemComment on above:Performed By: #### MG, CH8, PHOS ####[facility] PATH[facility] UCSNMGMKMI3040 [place], [place], [address]Chloride [Moles/Vol]106 mmol/CExourx72-631Tql [facility] SystemComment on above:Performed By: #### AMMON PRADO PHOS ####[facility] PATH[facility] LBVTFZBFEB1859 [place], [address]EK6 [Moles/Vol]34 mmol/GEcpa45-34Vrd [facility] SystemComment on above:Performed By: #### AMMON PRADO PHOS ####[facility] ZXQUXVKDVA5763 [place], [address]Fbgthyfdcr [Mass/Vol]0.68 mg/dLLow0.70-1.30The [facility] SystemComment on above:Performed By: #### AMMON PRADO PHOS ####[facility] PATH[facility]Y BSMUAZQCZB4238 [place], [address]ONQBFSWII GFR (CKD-EPI)92 mL/min/1.73sqmNormal>=60 The [facility] SystemComment on above:Result Comment: 2020 CKD EPI Equation using Creatinine without RaceComment: Estimated glomerular filtration rate (eGFR) is calculated without a race coefficient. Values should be interpreted in the context of the patient's full clinical presentation.Reference:1. Rishi C, Jorge M, Nic DC, et al.. A Unifying Approach for GFR Estimation: Recommendations of the NKF-ASN Task Force on Reassessing the Inclusion of Race in Diagnosing Kidney Disease. [place] Journal of Kidney Diseases 2021;79(2):26 8-88.e1.2. N Engl J Med 1 Vol. 385 Issue 19 Pages 0257-8051Performed By: #### AMMON PRADO PHOS ####[facility] PATH[facility] DUBCXQUCUO2835 [place], [address]Vsqcfcc [Mass/Vol]108 mg/wKUnutuv44-802Igz [facility] SystemComment on above:Performed By: #### AMMON PRADO PHOS ####[facility] RRWIVPYJWP0575 [place], [address]Xefprkgyq [Moles/Vol]4.3 mmol/LNormal 3.5-5.0The [facility] SystemComment on above:Performed By: #### AMMON PRADO, CHI ####S PATHOLOGY TSIKSNKWLZ9475 [place], Sodium [Moles/Vol]144 mmol/VSfzyqp522-634Cxo [facility] Centerro[facility] SystemComment on above: Performed By: #### AMMON PRADO, CHI ####[facility] PATHOLOGY LYPROTGIHN8[address] [place] [address], [address]Utmg nitrogen [Mass/Vol]24 mg/dLNormal7-25The [facility] SystemComment on above:Performed By: #### AMMON PRADO, CHI ####[facility] PATHOLOGY MHDFKJLKBB4917[address] [place] [address], [address]ZSWGN GAS, ARTERIALon 82-45-7988WT ABE6.1 mmol/LHigh-2.0-3.0The [facility]ro[facility] SystemComment on above:Performed By: #### CR BGA ####[facility] PATHOLOGY NJADZDTRKR8801[address] [place] [address], [address]HN KHO134.1 mm FoCxjs93.0-45.0The [facility]ro[facility] SystemComment on above:Performed By: #### CR BGA ####[facility] PATHOLOGY NCPVLWFAZE39[address] [place] [address], [address]HA PHA7.363Normal 7.350-7.450The [facility] Centerro[facility] SystemComment on above:Performed By: #### CR BGA ####[facility] PATHOLOGY GUIXOFUFSN[address] [place] [address], [address]IC EH0178 mm IbRrmn58-782Bgh [facility] SystemComment on above:Performed By: #### CR BGA ####[facility] PATHOLOGY SPPSEXNMVV[address] [place] [address], [address]ELJ9 (CATEGORY)60%NormalThe [facility] Centerro[facility] SystemComment on above: Performed By: #### CR BGA ####[facility] PATHOLOGY OUSUKLMQYN9088[address] [place] [address], [address]YSV7 (Bld) [Moles/Vol]32 mmol/XGbck21-87Vpc [facility] SystemComment on above:Performed By: #### CR BGA ####[facility] PATHOLOGY NLMPETJDSJ3998[address] [place] [address], [address]RIKORfhyRvefphGwa [facility] SystemComment on above:Performed By: #### CR BGA ####[facility] PATHOLOGY DIWAJZOXYT[address] [place] [address], [address]Ikralb saturation in Blood99.6 %High95.0-99.0The [facility]ro[facility] SystemComment on above:Performed By: #### CR BGA ####[facility] PATHOLOGY EKRQGWMMST054[address] [place] [address], [address]KFSVUWVS BLOOD COUNTon 82-22-8790Vxmgoikrwuh distribution width (RBC) [Ratio]15.9 %High11.5-14.5The [facility] CenterHealth SystemComment on above:Performed By: #### CBC ####[facility] PATHOLOGY OOBYKZWTEY8846[address] [place] [address], [address]Bjartktrkn (Bld) [Volume fraction]25.7 %Low41.0-53.0The [facility] CenterHealth SystemComment on above:Performed By: #### CBC ####[facility] PATHOLOGY ONMADWRTUT7765[address] [place] [address], [address]Voqtbgbcpk (Bld) [Mass/Vol]8.4 g/dLLow 13.9-16.3The [facility] CenterHealth SystemComment on above:Performed By: #### CBC ####[facility] PATHOLOGY KUWINOBQLE26[address] [place] [address], [address]BHV (RBC) [Entitic mass]31.7 riLtguov97.0-34.0The [facility] CenterHealth SystemComment on above: Performed By: #### CBC ####[facility] PATHOLOGY SVYSFHDWMR6[address] [place] [address], [address]BXGD (RBC) [Mass/Vol]32.6 g/pJHyogls38.0-35.9The [facility] SystemComment on above:Performed By: #### CBC ####[facility] PATHOLOGY WFSPVHRADJ9079[address] [place] [address], [address]EYQ (RBC) [Entitic vol] 97 kMLijlqp53-893Fqs [facility] CenterHealth SystemComment on above:Performed By: #### CBC ####[facility] PATHOLOGY ZKRQMMYVZU[address] [place] [address], Platelet mean volume (Bld) [Entitic vol]6.0 fLLow7.5-11.2The [facility] System Comment on above:Performed By: #### CBC ####[facility] PATHOLOGY ZOATZWWQGN7709[address] [place] [address], [address]Qppjndkue (Bld) [#/Vol]527 10*3/uLHigh 150-400The [facility] CenterroHealth SystemComment on above:Performed By: #### CBC ####[facility] PATHOLOGY IFKAAPBPWQ[address] [place] [address], [address]ZIM (Bld) [#/Vol]2.64 10*6/uLLow4.50-5.90The [facility] SystemComment on above:Performed By: #### CBC ####[facility] PATHOLOGY [id number] [place] [address], [phone] (Bld) [#/Vol]10.1 10*3/uLNormal4.5-11.5The [facility] System Comment on above:Performed By: #### CBC ####[facility] PATHOLOGY [id number] [place] [address], [id number] ACIDon [id number] LACT0.8 mmol/LNormal0.5-1.6The [facility] SystemComment on above:Performed By: #### LACT ####[facility] PATHOLOGY XCLVOYGOXY[address] [place] [address], MAGNESIUMon [id number] [Mass/Vol]2.3 mg/dLNormal1.9-2.7The [facility] Center[facility] SystemComment on above:Performed By: #### MG, CH8, PHOS ####[facility] PATHOLOGY RPTKLGHOHB[address] [place] [address], [id number] 05-28-2024 Phosphate [Mass/Vol]3.7 mg/dLNormal2.5-5.0The [facility] SystemComment on above:Performed By: #### MG, CH8, PHOS ####[facility] PATHOLOGY NGBEJVQE[address] [place] [address], [address]Pvpxkjmeezrx 61-62-1977Nhbbvdiazaaah Authentication Interface Message TextMount Sinai Hospital SystemProgress Notes on 40-60-1331Pumdzefdkmelj Authentication Interface Message TextNoCleveland Clinic Mercy Hospital SystemTranscription Authentication Interface Message TextSocial Work ICU Note Aware pt is intubated. Will assist with disposition planning pending pt's hospital course and medical team recs when pt is more medically appropriate. Katie Puri, DARIEL, Jose MCleveland Clinic Mercy Hospital SystemRESPIRATORY CULTURE, MISC on [phone] CULTURE, MISCC RESP: No Growth GRAM STAIN: 3+ Polymorphonuclear Leukocytes No Squamous Epithelial Cells seen No organisms seenMount Sinai Hospital SystemComment on above:Performed By: #### C RESP ####[facility] Tdcnmmfbd0771 [place], [place]XR CHEST AP OR PA 1 VIEWon [id number] CHEST AP OR PA 1 VIEWMount Sinai Hospital SystemXR Chest Single viewon 05-47-7095KNNSGXCRSIC: XR CHEST AP OR PA 1 VIEW 05/28/2024 06:26 AM CLINICAL HISTORY: eval s/p bronchoscopy ASSOCIATED DIAGNOSIS: eval s/p bronchoscopy ORDERING PROVIDER: LINO ARMIJO [employer]OLOG[employer] NOTE: COMPARISON: XR CHEST AP OR PA 1 VIEW 05/27/2024, 8:51 PM XR CHEST AP OR PA 1 VIEW 05/27/2024, 5:58 PMXR CHEST AP OR PA 1 VIEW 05/27/2024, 3:[address] CHEST W/O CONTRAST 05/19/2024, 9:45 AM FINDINGS: Lines, tubes, and devices: Endotracheal tube and enteral feeding tube are radiographically appropriate.. Lungs and pleura: There is some improvement in aeration the right lower zone. Some residual basilaratelectasis bilaterally as well as some pleural fluid at least on the right. Cardiomediastinal silhouette: Cardiac silhouette is at least upper limits of normal in size Musculoskeletal: Limited visualization. Redemonstration right rib fixation hardware and overlying right chest cutaneous joel. Degenerative changes of the bilateral shoulders including rotator cuffarthropathy and complete loss of substance of the rotator cuff under the acromion bilaterally. IMPRESSION: Endotracheal and nasogastric tubes are radiographically Improved aeration right lower zone following bronchoscopy. There continues to be some atelectasis bilaterally, more on the right. Redemonstration pleural fluid on the right and postsurgical changes MACRO: None Marek Gibson MD - 05/28/2024 EXAMINATION: XR CHEST AP OR PA 1 VIEW 05/28/2024 06:26 AM CLINICAL HISTORY: eval s/p bronchoscopy ASSOCIATED DIAGNOSIS: eval s/p bronchoscopy ORDERING PROVIDER: LINO ARMIJO TECHNOLOGISTS NOTE: COMPARISON: XR CHEST AP OR PA 1 VIEW 05/27/2024, 8:51 PM XR CHEST AP OR PA 1 VIEW 05/27/2024, 5:58 PMXR CHEST AP OR PA 1 VIEW 05/27/2024, 3:[address] CHEST W/O CONTRAST 05/19/2024, 9:45 AM FINDINGS: Lines, tubes, and devices: Endotracheal tube and enteral feeding tube are radiographically appropriate.. Lungs and pleura: There is some improvement in aeration the right lower zone. Some residual basilaratelectasis bilaterally as well as some pleural fluid at least on the right. Cardiomediastinal silhouette: Cardiac silhouette is at least upper limits of normal in size Musculoskeletal: Limited visualization. Redemonstration right rib fixation hardware and overlying right chest cutaneous joel. Degenerative changes of the bilateral shoulders including rotator cuffarthropathy and complete loss of substance of the rotator cuff under the acromion bilaterally. IMPRESSION: Endotracheal and nasogastric tubes are radiographically Improved aeration right lower zone following bronchoscopy. There continues to be some atelectasis bilaterally, more on the right. Redemonstration pleural fluid on the right and postsurgical changes MACRO: None [facility] observation (narrative)[facility]XR Chest Single viewOrdered By: Marek Driver on 19-56-1993DtirdWiuyuh Work Phone: b TYPE NATRIURETIC PEPTIDEon 60-37-8813Eftdogqzsit peptide B (Bld) [Mass/Vol]28.0 pg/mLNormal<100.0The [facility] SystemComment on above:Performed By: #### BPL ####[facility] RURFNQHDAM[address] [place] [address], [address]LPLVO METABOLIC PANELon 99-08-3824Nbchv gap [Moles/Vol]8 mmol/IPqa93-42Wyt [facility] Center[facility] SystemComment on above:Performed By: #### LLOYD8MG, PHOS ####[facility] BRSMTDELHX4988 [place], [address]Cxzbspy [Mass/Vol]8.7 mg/dLNormal8.6-10.3The [facility] Comment on above:Performed By: #### CH8 MG, PHOS ####[facility] HFXJGSVXLD6040 [place], [address]Wxmsabhm [Moles/Vol]106 mmol/ENnywsv24-508Ekv [facility] SystemComment on above:Performed By: #### LLOYD8MG, PHOS ####[facility] FSMUFKVLNR1634 [place], [address]OM2 [Moles/Vol]34 mmol/WKlcj76-21Iun [facility] Center[facility] SystemComment on above:Performed By: #### MG AMMON, PHOS ####[facility] GLLOHTOCYD0551 [place], [address]Awiiaxkvig [Mass/Vol]0.72 mg/dLNormal 0.70-1.30The [facility] SystemComment on above:Performed By: #### AMMON MG, PHOS ####[facility] TWQAACJMDR7175 [place], [place], ESTIMATED GFR (CKD-EPI)91 mL/min/1.73sqmNormal>=60The [facility] SystemComment on above:Result Comment: 2020 CKD EPI Equation using Creatinine without RaceComment: Estimated glomerular filtration rate (eGFR) is calculated without a race coefficient. Values should be interpreted in the context of the patient's full clinical presentation.Reference:1. Rishi C, Jorge M, Nic SILVA, et al.. A Unifying Approach for GFR Estimation: Recommendations of the NKF-ASN Task Force on Reassessing the Inclusion of Race in Diagnosing Kidney Disease. [place] Journal of Kidney Diseases 2021;79(2):268-88.e1.2. N Engl J Med 2021 Vol. 385 Issue 19 Pages 1730-2436Performed By: #### AMMON, , CHI ####[facility] IOWNDNOYKI4776 [place], [address]Mavjsnr [Mass/Vol]113 mg/jZYnlo01-011Zzc [facility] SystemComment on above:Performed By: #### AMMON, MG, PHOlAfonzo ####[facility] FDSZZKRJTZ0354 [place], [place], Potassium [Moles/Vol]4.8 mmol/LNormal3.5-5.0The [facility] Comment on above:Performed By: #### AMMON, MG, CHI ####[facility] SZIRQELNIX4976 [place], [address]Erhdrj [Moles/Vol]143 mmol/YRvspqo181-905Fyl [facility] SystemComment on above:Performed By: #### AMMON, MG, CHI ####[facility] IKQMDSXRNE[address] [place] [address], [address]Fxfo nitrogen [Mass/Vol]26 mg/dLHigh7-25The [facility] Center[facility] SystemComment on above:Performed By: #### AMMON, MG, CHI ####[facility] BHJJFOHXWE32[address] [place] [address], [address]Xwgns gap [Moles/Vol]10 mmol/LNormal 10-20The [facility] SystemComment on above:Performed By: #### CHI MG, CHIvis ####[facility] RMYOCJZJDC6658 [place], [place], Calcium [Mass/Vol]9.0 mg/dLNormal8.6-10.3The [facility] SystemComment on above: Performed By: #### CHI MG, CHIvis ####[facility] XSTMFNLMPH[address] [place] [address], [address]Fbpriouw [Moles/Vol]101 mmol/TSwjlcc82-563Wtn [facility] SystemComment on above:Performed By: #### CHI MG, CHIvis ####[facility] KMBUIUQGKQ7955 [place], [address]SG1 [Moles/Vol]38 mmol/QAdbj98-50Enj [facility] SystemComment on above:Performed By: ###MG GAGE CH8 ####[facility] KPLUWKRFND7026 [place], [address]Fnsrxraozy [Mass/Vol]0.66 mg/dLLow0.70-1.30The [facility] SystemComment on above:Performed By: #### MG MIRELES CH8 ####[facility] FGVCCDSXVD3752 [place], [address]IHRGLGVFW GFR (CKD-EPI)93 mL/min/1.73sqmNormal>=60The [facility] SystemComment on above: Result Comment: 2020 CKD EPI [...] Inclusion of Race in Diagnosing Kidney Disease. [place] Journal of Kidney Diseases 202;79(2):268-88.e1.2. N Engl J Med 1 Vol. 385 Issue 19 Pages 1633-5060Performed By: ###MG GAGE CH8 ####[facility] SAYJFBBFWG7183 [place], [address]Edemwhu [Mass/Vol]132 mg/nPYaci28-748Yiv [facility] SystemComment on above:Performed By: #### MG MIRELES CH8 ####[facility] GCBTVSWEBG1470 [place], [place], 44 Potassium [Moles/Vol]4.0 mmol/LNormal3.5-5.0The [facility] System Comment on above:Performed By: ###MG TOO, AMMON ####[facility] DMKYEJWARZ8643 [place], [address]Zymzdw [Moles/Vol]145 mmol/PFiujti310-171Jxx [facility] SystemComment on above:Performed By: #### CHI MG, CH8 ####S PATHOLOGY BLYBKOZSAJ[address] [place] [address], [address]Oasw nitrogen [Mass/Vol]24 mg/dLNormal7-25The [facility] System Comment on above:Performed By: #### CHI MG, CH8 ####S PATHOLOGY RZXIUMMJIR95[address] [place] [address], [address]ZUBNW CULTUREon 35-54-0006Wsiuwbje identified Cx Nom (Bld)C BLOOD: No GrowthNormalThe [facility] SystemComment on above:Performed By: #### C BLOOD ####[facility] Ufhvaqluf[address] [place], [place] [address]Bacteria identified Cx Nom (Bld)C BLOOD: No GrowthNormMorrow County Hospitale [facility] SystemComment on above:Performed By: #### C BLOOD ####[facility] Pgypozsej[address] [place], [place] [address]BLOOD GAS, ARTERIALon 89-37-0439XU ABE6.9 mmol/LHigh-2.0-3.0The [facility] SystemComment on above:Performed By: #### CR BGA ####[facility] PATHOLOGY DXDAMHEVBG[address] [place] [address], [address]HP UNO445.5 mm TdBcdw15.0-45.0The [facility] SystemComment on above:Performed By: #### CR BGA ####[facility] PATHOLOGY WYGYMNVYUQ[address] [place] [address], [address]MV PHA7.355Normal 7.350-7.450The [facility] SystemComment on above:Performed By: #### CR BGA ####S PATHOLOGY LNTACIKREP4713[address] [place] [address], [address]ZW PO284 mm CrZjygnb25-436Yic [facility] SystemComment on above:Performed By: #### CR BGA ####[facility] PATHOLOGY GICAXYOUOR6288[address] [place] [address], [address]IHY4 (CATEGORY)60%NormalThe [facility] Center[facility] SystemComment on above: Performed By: #### CR BGA ####[facility] PATHOLOGY RKPEATYBIJ1749[address] [place] [address], [address]RET2 (Bld) [Moles/Vol]33 mmol/BBrdo30-16Qpg [facility] SystemComment on above:Performed By: #### CR BGA ####[facility] PATHOLOGY DLCRHZZHWG84[address] [place] [address], [address]LOKDQMEKTUrzxbyOvh [facility] SystemComment on above:Performed By: #### CR BGA ####[facility] PATHOLOGY CLDHZNNVBM7088[address] [place] [address], [address]Wxopiy saturation in Blood96.8 %Qddfdf47.0-99.0The [facility] SystemComment on above:Performed By: #### CR BGA ####[facility] PATHOLOGY TAZPMOPUQE[address] [place] [address], [address]LU ABE7.2 mmol/LHigh-2.0-3.0The [facility] SystemComment on above: Performed By: #### CR BGA ####[facility] PATHOLOGY BVFVYKSVEW[address] [place] [address], [address]CB SUY063.3 mm BuAgwc01.0-45.0The [facility] SystemComment on above:Performed By: #### CR BGA ####[facility] PATHOLOGY LVKLUVPNTZ[address] [place] [address], [address]TK PHA7.357Normal 7.350-7.450The [facility] Center[facility] SystemComment on above:Performed By: #### CR BGA ####[facility] PATHOLOGY IGEWXDGWPR4[address] [place] [address], [address]LU PO277 mm FuZrh75-217Mqv [facility] SystemComment on above:Performed By: #### CR BGA ####[facility] PATHOLOGY TXWXTJFLKC2766[address] [place] [address], FIO2 (CATEGORY)>5 LPMNormalThe [facility] CenterroHealth SystemComment on above:Result Comment: 6LPerformed By: #### CR BGA ####[facility] PATHOLOGY LRFRLBAJIB37[address] [place] [address], [address]GGF3 (Bld) [Moles/Vol]34 mmol/LHigh 21-28The [facility] SystemComment on above:Performed By: #### CR BGA ####[facility] PATHOLOGY SGLDEEYABG0697[address] [place] [address], [address]ZUHCJNGMC NormalThe [facility] SystemComment on above:Result Comment: 18/06Performed By: #### CR BGA ####[facility] PATHOLOGY QQVKRPKMUO3204[address] [place] [address], [address]Gkrrmd saturation in Blood95.2 %Eebeaq65.0-99.0The [facility] Comment on above:Performed By: #### CR BGA ####[facility] PATHOLOGY PLBXINDFNX[address] [place] [address], [address]AX ABE5.4 mmol/LHigh-2.0-3.0The [facility] SystemComment on above:Performed By: #### CR BGA ####[facility] PATHOLOGY VMLQYGRMBY4826[address] [place] [address], [address]YL LDO092.7 mm HgHigh 35.0-45.0The [facility] SystemComment on above:Performed By: #### CR BGA ####[facility] PATHOLOGY UYSEXKFVXA4566[address] [place] [address], [address]BC PHA7.244Awh1.350-7.450The [facility] SystemComment on above:Performed By: #### CR BGA ####[facility] PATHOLOGY THQSXUHRJA7367[address] [place] [address], [address]GF PO270 mm GnHcw92-622Yez [facility] SystemComment on above: Performed By: #### CR BGA ####[facility] PATHOLOGY UBQKQVBERK[address] [place] [address], [address]TCF0 (CATEGORY)>5 LPMNormalThe [facility] System Comment on above:Performed By: #### CR BGA ####[facility] PATHOLOGY KSYRDAWOVB1437[address] [place] [address], [address]XQC7 (Bld) [Moles/Vol]32 mmol/LHigh -28The [facility] SystemComment on above:Performed By: #### CR BGA ####[facility] PATHOLOGY LOTZFOTCJM3142[address] [place] [address], [address]YDDLFCYAZ NormalThe [facility] Centerro[facility] SystemComment on above:Performed By: #### CR BGA ####[facility] PATHOLOGY ITMBBABWWK934[address] [place] [address], [address]Xmltwf saturation in Blood92.7 %Low95.0-99.0The [facility] SystemComment on above: Performed By: #### CR BGA ####[facility] PATHOLOGY VPHYXRGBEQ6583[address] [place] [address], [address]CB ABE7.9 mmol/LHigh-2.0-3.0The [facility] Comment on above:Performed By: #### CR BGA ####[facility] PATHOLOGY YXNFDHZCAA0218[address] [place] [address], [address]HM ELF677.4 mm HgCritically high 35.0-45.0The [facility] SystemComment on above:Performed By: #### CR BGA ####[facility] PATHOLOGY BUZYBCENCW0022[address] [place] [address], [address]PW PHA7.878Kbi3.350-7.450The [facility] SystemComment on above:Performed By: #### CR BGA ####[facility] PATHOLOGY CHSVTTKUJD5447[address] [place] [address], [address]YP PO271 mm MwWfz63-842Vwd [facility] SystemComment on above: Performed By: #### CR BGA ####[facility] PATHOLOGY CUQKSJXSLC5523[address] [place] [address], [address]EUQ2 (CATEGORY)>5 LPMNormalThe [facility] System Comment on above:Performed By: #### CR BGA ####[facility] PATHOLOGY AEMYKAFPPP224[address] [place] [address], [address]GBE0 (Bld) [Moles/Vol]35 mmol/LHigh 21-28The [facility] SystemComment on above:Performed By: #### CR BGA ####[facility] PATHOLOGY MASZFRZLYG[address] [place] [address], [address]ASBJJIAJZ NormalThe [facility] SystemComment on above:Performed By: #### CR BGA ####[facility] PATHOLOGY TAGFZNENUD2019[address] [place] [address], [address]Cliyhm saturation in Blood92.0 %Low95.0-99.0The [facility] SystemComment on above: Performed By: #### CR BGA ####[facility] PATHOLOGY XOIDXBOZSH3558[address] [place] [address], [address]REIYWYSJ BLOOD COUNTon 62-06-7482Witkceladsg distribution width (RBC) [Ratio]16.0 %High11.5-14.5The [facility] Center[facility] SystemComment on above:Performed By: #### CBC ####[facility] PATHOLOGY VKNWVRTUBC9017[address] [place] [address], [address]Phtkhlbpgo (Bld) [Volume fraction]28.3 %Low 41.0-53.0The [facility] Center[facility] SystemComment on above:Performed By: #### CBC ####[facility] PATHOLOGY CFDIOMSTCO[address] [place] [address], [address]Wlsbcwyytk (Bld) [Mass/Vol]9.1 g/dLLow13.9-16.3The [facility] Center[facility] SystemComment on above: Performed By: #### CBC ####[facility] PATHOLOGY KFCWPRDHXR3486[address] [place] [address], [address]HBY (RBC) [Entitic mass]31.5 tfHzaabe17.0-34.0The [facility] SystemComment on above:Performed By: #### CBC ####[facility] PATHOLOGY AJVTGMXVSS[address]01[address] [place] [address], [address]TVIR (RBC) [Mass/Vol] 32.1 g/iDYqmohy96.0-35.9The [facility] Center[facility] SystemComment on above:Performed By: #### CBC ####[facility] PATHOLOGY PKEKMEHXHH5162[address] [place] [address], [address]AAK (RBC) [Entitic vol]98 vAKjlpyd40-484Saj [facility] Center[facility] SystemComment on above:Performed By: #### CBC ####[facility] PATHOLOGY XZYPEQFKIE6076[address] [place] [address], [address]Letawhmr mean volume (Bld) [Entitic vol]6.1 fLLow 7.5-11.2The [facility] SystemComment on above:Performed By: #### CBC ####[facility] PATHOLOGY RGCYUPQLMA3796[address] [place] [address], [address]Rcbsmjssm (Bld) [#/Vol]471 10*3/wLXvlq946-216Dyn [facility] SystemComment on above: Performed By: #### CBC ####[facility] PATHOLOGY DPXCTAUJAH4479[address] [place] [address], [address]XRS (Bld) [#/Vol]2.88 10*6/uLLow4.50-5.90The [facility] SystemComment on above:Performed By: #### CBC ####[facility] PATHOLOGY JASQXXMVYT3882[address] [place] [address], [address]IBM (Bld) [#/Vol]10.7 10*3/uLNormal4.5-11.5The [facility] SystemComment on above:Performed By: #### CBC ####[facility] PATHOLOGY GGCNKUOBFF1425[address] [place] [address], Erythrocyte distribution width (RBC) [Ratio]15.7 %High11.5-14.5The [facility] SystemComment on above:Performed By: #### CBC ####[facility] PATHOLOGY ZFHIPCLAND3579[address] [place] [address], [address]Vczlbskuiw (Bld) [Volume fraction]32.1 %Low41.0-53.0The [facility] SystemComment on above:Performed By: #### CBC ####[facility] PATHOLOGY JBNIDZHERU4824[address] [place] [address], Hemoglobin (Bld) [Mass/Vol]10.6 g/dLLow13.9-16.3The [facility] SystemComment on above:Performed By: #### CBC ####[facility] PATHOLOGY HYWUXHLHEJ3536[address] [place] [address], [address]TBV (RBC) [Entitic mass]31.9 rfYcuthk39.0-34.0The [facility] Center[facility] SystemComment on above:Performed By: #### CBC ####[facility] PATHOLOGY JLSZHESJSB9759[address] [place] [address], [address]TJFD (RBC) [Mass/Vol] 32.9 g/uPVlkvyv29.0-35.9The [facility] SystemComment on above:Performed By: #### CBC ####[facility] PATHOLOGY AVXOKMCUDS2255 [place], [address]HSH (RBC) [Entitic vol]97 xFMozqlz48-392Tob [facility] Center[facility] SystemComment on above:Performed By: #### CBC ####[facility] PATHOLOGY OKVEEAKYTP7592[address] [place] [address], [address]Retjtvyq mean volume (Bld) [Entitic vol]6.3 fLLow 7.5-11.2The [facility] Center[facility] SystemComment on above:Performed By: #### CBC ####[facility] PATHOLOGY NGBJNBTPRR9134[address] [place] [address], [address]Cazvkcuxs (Bld) [#/Vol]517 10*3/jRFnqv696-536Fjf [facility] Center[facility] SystemComment on above: Performed By: #### CBC ####[facility] PATHOLOGY WXWTLHPUOJ2686[address] [place] [address], [address]PMQ (Bld) [#/Vol]3.31 10*6/uLLow4.50-5.90The [facility] Center[facility] SystemComment on above:Performed By: #### CBC ####[facility] PATHOLOGY QOQXBOFZBP0597[address] [place] [address], [address]HOS (Bld) [#/Vol]11.2 10*3/uLNormal4.5-11.5The [facility] SystemComment on above:Performed By: #### CBC ####[facility] PATHOLOGY ENAELKDEAB1847[address] [place] [address], HIGH SENSITIVITY TROPONIN Ion 25-95-2138AZ TROPONIN I11 ng/LNormal<=15The [facility] SystemComment on above:Order Comment: Elevated troponin can result from acute myocardial infarction (coronary etiology) ormyocardial injury (non- coronary etiology) - always consider both.Interval test times [...] below lower limit of quantification - essentially rulesout ACS if chest pain began more than [...] (i.e. <=15 ng/L = 0 points, 16-45 ng/L= 1 point, >45 ng/L = 2 points).DispositionIntermediate hsTnI values DO NOT mandate admission toa cardiology or telemetry unit. They need to be interpreted within the clinical context using provider judgement.Performed By: #### HSTRP ####[facility] JMQTZNEQWI3880 [place], [address]VZFRZUZLKte 05-27-2024 Magnesium [Mass/Vol]2.3 mg/dLNormal1.9-2.7The [facility] SystemComment on above:Performed By: #### LLOYD8 MGCHI ####[facility] EMZSVQGFMY4268 [place], [address]Ezrljriyj [Mass/Vol]2.3 mg/dLNormal 1.9-2.7The [facility] SystemComment on above:Performed By: #### PHOMG Alfonzo, CH8 ####[facility] WNXZJHLADZ3320 [place], [place], PHOSPHORUSon 68-53-1171Upyjhigqd [Mass/Vol]3.6 mg/dLNormal2.5-5.0The [facility] SystemComment on above:Performed By: #### CH8, MG, PHOS ####S PATHOLOGY IMGDPXYITK[address] [place] [address], [address]Gkjhnspha [Mass/Vol]3.5 mg/dLNormal2.5-5.0The [facility] SystemComment on above:Performed By: #### PHOS, MG, CH8 ####[facility] PATHOLOGY WJDRKNCIOH1943 [place], [address]Eanengjtaytb 82-30-2744Bzrissswxbboj Authentication Interface Message TextNoC[facility] SystemTranscription Authentication Interface Message TextMount [facility] SystemTranscription Authentication Interface Message TextNoC[facility] SystemProgress Noteson 17-20-3521Pixetznbsyarh Authentication Interface Message TextMount Sinai Hospital SystemTranscription Authentication Interface Message [id number]: 30mg etomidate, 100mg succ 1553: #7.5 ETT, 22 @ lip line; positive color change; bilateral breath sounds presentNoCleveland Clinic [facility] SystemTranscription Authentication Interface Message TextNoC[facility] Clinic [facility] SystemTranscription Authentication Interface Message TextMount Sinai Hospital SystemURINALYSIS WITH REFLEX CULTURE PERFORMABLEon 61-31-9996Dkotgdt Ql (U)NegativeNormalNegativeThe [facility] SystemComment on above:Order Comment: A negative leukocyte esterase AND negative nitrite test or absence of pyuria (urine WBC count <= 5-10) make a UTI (urinary tract infection) very unlikely in a non-neutropenic adult (<=5% likelihood in many studies). A positive leukocyte esterase, nitrite and/or pyuria is a nonsp ecific result. This can be seen in conditions other than a UTI e.g. asymptomatic bacteriuria, gynecologic infections, sexually transmitted infections, and noninfectious conditions (positive predictive value for UTI around 50%)Performed By: #### urinalysiswcul ####S PATHOLOGY CUZPRAFBSQ[address] [place] [address], #### C URINE ####[facility] Qexkxkjlg0213 [place] [id number] CASTS3-5NoCleveland Clinic Mercy [facility] SystemComment on above:Order Comment: A negative leukocyte esterase AND negative nitrite test or absence of pyuria (urine WBC count <= 5-10) make a UTI (urinary tract infection) very unlikely in a non-neutropenic adult (<=5% likelihood in many studies). A positive leukocyte esterase, nitrite and/or pyuria is a nonsp ecific result. This can be seen in conditions other than a UTI e.g. asymptomatic bacteriuria, gynecologic infections, sexually transmitted infections, and noninfectious conditions (positive predictive value for UTI around 50%)Performed By: #### urinalysiswcul ####[facility] PATHOLOGY BLMHQBTBFN1352 [place], [place], #### C URINE ####[facility] Bqqwwjtcl[address] [place], [place] [phone] (U) [Mass/Vol]100 mg/dLAbnormal NegativeThe [facility] SystemComment on above:Order Comment: A negative leukocyte esterase AND negative nitrite test or absence of pyuria (urine WBC count <= 5-10) make a UTI (urinary tract infection) very unlikely in a non- neutropenic adult (<=5% likelihood in many studies). A positive leukocyte esterase, nitrite and/or pyuria is a nonspecific result. This can be seen in conditions other than a UTI e.g. asymptomatic bacteriuria, gynecologic infections, sexually transmitted infections, and noninfectious conditions (positive predictive value for UTI around 50%)Performed By: #### urinalysiswcul ####S PATHOLOGY VSGTQSHWXQ8078 [place], [place], #### C URINE ####[facility] Iwwqyqikb[address] [place], [place] [id number] SQUAMOUS HLOWJPFDBX6-7Lioyep8-13Imi [facility] SystemComment on above:Order Comment: A negative leukocyte esterase AND negative nitrite test or [...] conditions (positive predictive value for UTI around 50%)Performed By: #### urinalysiswcul ####[facility] PATHOLOGY TSNQGWATLK3411 [place], [place], #### C URINE ####[facility] Gxozmsumv[address] [place], [place] [phone] APPEARTurbidNormalClearMercy Health Perrysburg Hospital SystemComment on above: Order Comment: A negative leukocyte esterase AND negative nitrite test or [...] conditions (positive predictive value for UTI around 50%)Performed By: #### urinalysiswcul ####[facility] PATHOLOGY EGMGRLCATY83[address] [place] [address], #### C URINE ####[facility] Ofjnipbtw[address] [place], [place] [phone] BACTERIAFewNormalThGood Samaritan Hospital SystemComment on above:Order Comment: A negative leukocyte esterase AND negative nitrite test or [...] conditions (positive predictive value for UTI around 50%)Performed By: #### urinalysiswcul ####[facility] PATHOLOGY CHKOTTIMIF4677[address] [place] [address], #### C URINE ####[address]U BILINegativeNormalNegativeMercy Health Perrysburg Hospital SystemComment on above:Order Comment: A negative leukocyte esterase AND negative nitrite test or [...] conditions (positive predictive value for UTI around 50%)Performed By: #### urinalysiswcul ####S PATHOLOGY AZHAFYIKEY6039 [place], [place], #### C URINE ####[facility] Tvbihltbt00[address] [place], [place] [phone] BLOODNegativeNormalNegativeThe [facility] SystemComment on above:Order Comment: A negative leukocyte esterase AND negative nitrite test or [...] conditions (positive predictive value for UTI around 50%)Performed By: #### urinalysiswcul ####S PATHOLOGY NONMRJGSSS2202 [place], [place], #### C URINE ####[facility] Ikmyrrbog074[address] [place], [place] [phone] COLORYellowNormalColorlessThe [facility] SystemComment on above:Order Comment: A negative leukocyte esterase AND negative nitrite test or [...] conditions (positive predictive value for UTI around 50%)Performed By: #### urinalysiswcul ####[facility] PATHOLOGY MABIKVEVJO6426 [place], [place], #### C URINE ####[facility] Pguzdwsqc6679 [place], [place] [address] SystemComment on above:Order Comment: A negative leukocyte esterase AND negative nitrite test or [...] conditions (positive predictive value for UTI around 50%)Performed By: #### urinalysiswcul ####[facility] PATHOLOGY BJPTSQZSGH1667[address] [place] [address], #### C URINE ####[facility] Eidljfpda110[address] [place], [place] [phone] KETONENegativeNormalNegativeMercy Health Perrysburg Hospital SystemComment on above:Order Comment: A negative leukocyte esterase AND negative nitrite test or [...] conditions (positive predictive value for UTI around 50%)Performed By: #### urinalysiswcul ####[facility] PATHOLOGY QFDHCPYSFY3479 [place], [place], #### C URINE ####[facility] Ldwedfadf946[address] [place], [place] [phone] LEUKNegativeNormalNegativeMercy Health Perrysburg Hospital SystemComment on above:Order Comment: A negative leukocyte esterase AND negative nitrite test or [...] conditions (positive predictive value for UTI around 50%)Performed By: #### urinalysiswcul ####[facility] PATHOLOGY TJCNHRXMYF4821 [place], [place], #### C URINE ####[facility] Xcfwajrne7323[address] [place], [place] [id number] MUCOUSPresentNormalThe [facility] SystemComment on above:Order Comment: A negative leukocyte esterase AND negative nitrite test or [...] conditions (positive predictive value for UTI around 50%)Performed By: #### urinalysiswcul ####[facility] PATHOLOGY DXQTKAPFCC0029 [place], [place], #### C URINE ####[facility] Ibxxwudic522[address] [place], [place] [id number] NITRITENegativeNormalNegativeMercy Health Perrysburg Hospital SystemComment on above:Order Comment: A negative leukocyte esterase AND negative nitrite test or [...] conditions (positive predictive value for UTI around 50%)Performed By: #### urinalysiswcul ####[facility] PATHOLOGY EWHIXTGPKB4108 [place], [place], #### C URINE ####[facility] Irzihyixe7309[address] [place], [place] [address]U PH6.4Ocootq8.0-8.0The [facility] SystemComment on above:Order Comment: A negative leukocyte esterase AND negative nitrite test or [...] conditions (positive predictive value for UTI around 50%)Performed By: #### urinalysiswcul ####[facility] PATHOLOGY LJXPURWTVP6401[address] [place] [address], #### C URINE ####[address] AQC65-01Ykcltuuq8-8Uda [facility] SystemComment on above:Order Comment: A negative leukocyte esterase AND negative nitrite test or [...] conditions (positive predictive value for UTI around 50%)Performed By: #### urinalysiswcul ####[facility] PATHOLOGY UVVJBXZUUU0573[address] [place] [address], #### C URINE ####[facility] Owlaiqpxn0439[address] [place], [place] [address]U SG1.031High<=1.030The [facility] SystemComment on above:Order Comment: A negative leukocyte esterase AND negative nitrite test or [...] conditions (positive predictive value for UTI around 50%)Performed By: #### urinalysiswcul ####[facility] PATHOLOGY MJHGGWGXUE9262 [place], [place], #### C URINE ####[address] UROBILI3.0 mg/dLAbnormalNegativeThe [facility] SystemComment on above:Order Comment: A negative leukocyte esterase AND negative nitrite test or [...] conditions (positive predictive value for UTI around 50%)Performed By: #### urinalysiswcul ####[facility] PATHOLOGY RHZFKVOYFE5234[address] [place] [address], #### C URINE ####[facility] Lwwnnhbwr4258[address] [place], [place] [address]U TUN8-54Ohjbwdvg1-6Vok [facility] SystemComment on above:Order Comment: A negative leukocyte esterase AND negative nitrite test or absence of pyuria (urine WBC count <= 5-10) make a UTI (urinary tract infection) very unlikely in a non-neutropenic adult (<=5% likelihood in many studies). A positive leukocyte esterase, nitrite and/or pyuria is a nonsp ecific result. This can be seen in conditions other than a UTI e.g. asymptomatic bacteriuria, gynecologic infections, sexually transmitted infections, and noninfectious conditions (positive predictive value for UTI around 50%)Performed By: #### urinalysiswcul ####[facility] PATHOLOGY XXOAVOSTWI[address] [place] [address], #### C URINE ####[facility] Bssknquaf5244[address] [place], [place] [phone] CULTUREon 79-22-8192Iqeasqje identified Cx Nom (U)C URINE: No growth of greater than 1,000 CFU/mlNormalThe [facility] SystemComment on above:Performed By: #### urinalysiswcul ####[facility] BAMRCJAIGO4287 [place], [address]#### C URINE ####[facility] Lrrpcvdhx7796 [place], [place]XR ABDOMEN AP 1 VIEWon 16-51-3947NU ABDOMEN AP 1 VIEWNormMorrow County Hospitale [facility] SystemXR CHEST AP OR PA 1 VIEWon 60-27-7683SC CHEST AP OR PA 1 VIEWNormCleveland Clinic [facility] SystemXR CHEST AP OR PA 1 VIEWNormCleveland Clinic Hillcrest [facility] SystemXR CHEST AP OR PA 1 VIEWNoCleveland Clinic Mercy Hospital SystemXR CHEST AP OR PA 1 VIEWNormCleveland Clinic Hillcrest Hospital SystemXR Chest Single viewon 57-40-1325WXKARBBUOFC: XR CHEST AP OR PA 1 VIEW 05/27/2024 02:20 AM CLINICAL HISTORY: Acute HYpoxia ASSOCIATED DIAGNOSIS: Acute HYpoxia ORDERING PROVIDER: NIK DIAZ NOTE: COMPARISON: XR CHEST AP OR [...] interval change from prior exam. MACRO: None Chema Hodgson MD - 05/27/2024 EXAMINATION: XR CHEST AP [...] interval change from prior exam. MACRO: None [facility] (narrative)[facility]XR Chest Single viewOrdered By: Chema Garvey on 06-15-8719IpljyFgobfk Work Phone: assessment AND Plan Noteon 22-01-5545Rtkgeprwreoli Authentication Interface Message Text-likely in setting of anticholinergics and critical illness -last BM 05/23, patient passing gas this morning Plan: -continue senna dailyNoCritical access hospitalMatch Point Partners SystemTranscription Authentication Interface Message Text-in setting of acute hypoxic respiratory failure and pneumothorax -next of kin is Ilana Michelle (spouse) and then son Chente Vaughn (numbers in chart) -did not address code statusNoCritical access hospitalMatch Point Partners SystemTranscription Authentication Interface Message Text-in setting of pneumothrorax and rib fracturesNoC[facility] Clinic [facility] SystemTranscription Authentication Interface Message Text-appears to be improving on imagingNoCritical access hospitalMatch Point Partners System Mechanic Chief Authentication Interface Message Text-now s/p rib plating and rib block, likely cause of hypoxic respiratory failureNoC[facility] Clinic [facility] System Mechanic Chief Authentication Interface Message TextNoCritical access hospitalMatch Point Partners System BASIC METABOLIC PANELon 33-19-0614Ztraq gap [Moles/Vol]13 mmol/GOoenmv82-39Fza [facility] SystemComment on above:Performed By: #### CHI PRADO CH8 ####[facility] UNGAMIZMPD9677 [place], [address]Iehgguz [Mass/Vol]8.3 mg/dLLow8.6-10.3The [facility] SystemComment on above:Performed By: #### CHI PRADO CH8 ####[facility] LYCEIGCBQY7313 [place], [address]Vcfxjlzc [Moles/Vol]102 mmol/LOpswxd75-875Ucg [facility] SystemComment on above:Performed By: #### CHI PRADO CH8 ####[facility] PATH[facility] KSOYCJDVJW7749 [place], [address]EN8 [Moles/Vol]31 mmol/TYyazqd39-43Uvm [facility] SystemComment on above:Performed By: #### CHI PRADO CH8 ####S PATHOLOGY NSQFFQVKIF6166 [place], [address]Nnperycnyl [Mass/Vol]0.66 mg/dLLow0.70-1.30The [facility] SystemComment on above:Performed By: #### CHI PRADO CH8 ####S PATHOLOGY NOSZTLJBDF2892 [place], [address]NVYUHRZTR GFR (CKD-EPI)93 mL/min/1.73sqmNormal>=60The [facility] SystemComment on above: Result Comment: 2020 CKD EPI [...] Inclusion of Race in Diagnosing Kidney Disease. [place] Islander Journal of Kidney Diseases 2021;79(2):268-88.e1.2. N Engl J Med 2020 Vol. 385 Issue 19 Pages 9449-0849Performed By: #### CHI PRADO CH8 ####[facility] NSCBPKXNDT8731 [place], [address]Phrycfv [Mass/Vol]91 mg/hGGdjuyr78-609Irr [facility] SystemComment on above:Performed By: #### CHI PRADO CH8 ####[facility] HFDRFNBIVF9569 [place], [place], [address]Potassium [Moles/Vol]3.7 mmol/LNormal3.5-5.0The [facility] System Comment on above:Performed By: #### CHI PRADO CH8 ####S PATHOLOGY YSEHCBNSLD5301 [place], [address]Cqarvf [Moles/Vol]142 mmol/NJzgjhc188-979Eiz [facility] SystemComment on above:Performed By: #### CHI PRADO CH8 ####S PATHOLOGY KYGTHCZIMP2634 [place], [place], Urea nitrogen [Mass/Vol]23 mg/dLNormal7-25The [facility] Center[facility] SystemComment on above:Performed By: #### CHI PRADO CH8 ####[facility] PATHOLOGY UVDWEIDTYY7[address] [place] [address], [address]FKEVYTRR BLOOD COUNTon 05-26-2024 Erythrocyte distribution width (RBC) [Ratio]15.5 %High11.5-14.5The [facility] SystemComment on above:Performed By: #### CBC ####[facility] PATHOLOGY PESYHWZPLI[address] [place] [address], [address]Yitrsjszdw (Bld) [Volume fraction]29.3 %Low41.0-53.0The [facility] SystemComment on above:Performed By: #### CBC ####[facility] PATHOLOGY PIBCCMMXNS36[address] [place] [address], Hemoglobin (Bld) [Mass/Vol]9.5 g/dLLow13.9-16.3The [facility] SystemComment on above:Performed By: #### CBC ####[facility] PATHOLOGY JIJRULLJII0587[address] [place] [address], [address]WPQ (RBC) [Entitic mass]31.4 etVsmuwy50.0-34.0The [facility] SystemComment on above:Performed By: #### CBC ####[facility] PATHOLOGY KVBZDTVRIR44[address] [place] [address], [address]MVTQ (RBC) [Mass/Vol] 32.6 g/uUNstvff29.0-35.9The [facility] SystemComment on above:Performed By: #### CBC ####[facility] PATHOLOGY WOQNLQUAHH[address] [place] [address] [place], [address]KJG (RBC) [Entitic vol]96 eZPekqmx37-130Occ [facility] SystemComment on above:Performed By: #### CBC ####S PATHOLOGY ZFUFPSFOKH2099[address] [place] [address], [address]Lzqoophz mean volume (Bld) [Entitic vol]6.2 fLLow 7.5-11.2The [facility] SystemComment on above:Performed By: #### CBC ####S PATHOLOGY WQULJTKKDC3898[address] [place] [address], [address]Wfsgopktm (Bld) [#/Vol]439 10*3/wPPrvz532-165Nwv [facility] SystemComment on above: Performed By: #### CBC ####S PATHOLOGY ZEWBLSBUBK9304[address] [place] [address], [address]EMR (Bld) [#/Vol]3.04 10*6/uLLow4.50-5.90The [facility] SystemComment on above:Performed By: #### CBC ####S PATHOLOGY DRMYNLONFN3077[address] [place] [address], [address]VYL (Bld) [#/Vol]8.8 10*3/uLNormal4.5-11.5The [facility] SystemComment on above:Performed By: #### CBC ####S PATHOLOGY LCQCQBNMKT6316[address] [place] [address], Consultson 26-65-2898Kphjogrtlixcg Authentication Interface Message TextNormal The [facility] CenterroHealth SystemMAGNESIUMon 51-93-3656Wstadfyvt [Mass/Vol]2.2 mg/dLNormal 1.9-2.7The [facility] SystemComment on above:Performed By: #### CHI PRADO CH8 ####S PATHOLOGY TAEZNGBARC[address] [place] [address], PHOSPHORUSon 51-01-1116Naotfaphm [Mass/Vol]3.4 mg/dLNormal2.5-5.0The [facility] SystemComment on above:Performed By: #### CHI PRADO CH8 ####[facility] YDJNGHTKOQ4225 [place], [address]Cwyqxlay Noteson 75-14-7456Psgrdzwydeulz Authentication Interface Message TextNormVentriPoint Diagnosticse [facility] SystemTranscription Authentication Interface Message TextNormMorrow County Hospitale [facility] SystemTranscription Authentication Interface Message TextNormMorrow County Hospitale [facility] SystemXR CHEST AP OR PA 1 VIEWon 75-24-8191MJ CHEST AP OR PA 1 VIEW NormalThe [facility] SystemXR Chest Single viewon 58-65-4155CKLRZFKPBAF: XR CHEST AP OR PA 1 VIEW [...] Cardiomediastinal silhouette: Normal cardiomediastinal silhouette. Atherosclerotic calcification ofthe aortic arch. Musculoskeletal: Unchanged acute mildly displaced fractures of several right lateral ribs, with internal fixation of the lower right ribs. Right chest wall emphysema and overlying cutaneous joel IMPRESSION: No sign of interval change compared to prior exam. MACRO: None Chema Hodgson MD - 05/26/2024 EXAMINATION: XR CHEST AP [...] Cardiomediastinal silhouette: Normal cardiomediastinal silhouette. Atherosclerotic calcification ofthe aortic arch. Musculoskeletal: Unchanged acute mildly displaced fractures of several right lateral ribs, with internal fixation of the lower right ribs. Right chest wall emphysema and overlying cutaneous joel IMPRESSION: No sign of interval change compared to prior exam. MACRO: None [facility] observation (narrative)[facility] Chest Single viewOrdered By: Chema Garvey on 29-81-7851XsgtkZmwdrr Work Phone: [phone] Interactionon 23-76-8093Hgoftivbmvmzx Authentication Interface Message TextNoC[facility] SystemAssessment AND Plan Noteon 77-79-3865Xsmzwbturykun Authentication Interface Message Text- appears to be improving on imagingNoC[facility] SystemTranscription Authentication Interface Message Text-in setting of acute hypoxic respiratory failure and pneumothorax -next of kin is Ilana Michelle (spouse) and then son Chente Vaughn (numbers in chart) -did not address code statusNoC[facility] SystemTranscription Authentication Interface Message Text-likely in setting of anticholinergics and critical illness -last BM 05/23 Plan: -change senna to daily, if no BM today increase to bid -consider bisacodyl suppository prnNormalThe [facility] SystemTranscription Authentication Interface Message Text-in setting of pneumothrorax and rib fracturesNoGlenbeigh Hospitale [facility] SystemTranscription Authentication Interface Message Text-now s/p rib plating and rib block, likely cause of hypoxic respiratory failureNoC[facility] SystemTranscription Authentication Interface Message TextNoC[facility] SystemBASIC METABOLIC PANELon 25-85-9366Lycqe gap [Moles/Vol]10 mmol/MOfaekx89-21Rox [facility] SystemComment on above:Performed By: #### MG CH8, PHOS ####[facility] AGHKHFGJKI9122 [place], [address]Coihgby [Mass/Vol]8.2 mg/dLLow8.6-10.3 The [facility] SystemComment on above:Performed By: #### MG CH8, PHOS ####[facility] MHNVXGUDBM2796 [place], [address]Wszdjyck [Moles/Vol]100 mmol/HHyfyny68-731Psl [facility] SystemComment on above: Performed By: #### MG CH8, PHOS ####[facility] LBOTXLBRBG2783 [place], [address]ME6 [Moles/Vol]33 mmol/RCcku41-20Qnj [facility] SystemComment on above:Performed By: #### AMMON PRADO, PHOS ####[facility] ACQRSNHPYO0560 [place], [address]Sdctjzuxsq [Mass/Vol] 0.68 mg/dLLow0.70-1.30The [facility] SystemComment on above:Performed By: #### AMMON PRADO, PHOS ####[facility] VEODZQKUOS6678 [place], [address]RJONRCUDG GFR (CKD-EPI)92 mL/min/1.73sqmNormal>=60The [facility] SystemComment on above:Result Comment: 2020 CKD EPI Equation using Creatinine without RaceComment: Estimated glomerular filtration rate (eGFR) is calculated without a race coefficient. Values should be interpreted in the context of the patient's full clinical presentation.Reference:1. Rishi C, Jorge M, Nic SILVA, et al.. A Unifying Approach for GFR Estimation: Recommendations of the NKF-ASN Task Force on Reassessing the Inclusion of Race in Diagnosing Kidney Disease. [place] Journal of Kidney Diseases 2021;79(2):268-88.e1.2. N Engl J Med 1 Vol. 385 Issue 19 Pages 3526-6278Performed By: #### AMMON PRADO, RADS ####[facility] TOISEXCMVG1312 [place], [address]Bspditk [Mass/Vol]80 mg/wIGxgtrb89-344Txu [facility] SystemComment on above:Performed By: #### AMMON PRADO, PHOS ####[facility] FSIRHEYUJF6013 [place], [address]Kkimtljvd [Moles/Vol]4.3 mmol/LNormal3.5-5.0The [facility] SystemComment on above:Result Comment: Hemolysis presentPerformed By: #### AMMON PRADO, PHOS ####[facility] KJEDWLPTGZ7653 [place], [address]Gbchse [Moles/Vol]139 mmol/YDbtnuj786-178Tsq [facility] SystemComment on above:Performed By: #### AMMON PRADO PHOS ####[facility] PATHOLOGY PVLNKGSUDQ[address] [place] [address], [address]Gswo nitrogen [Mass/Vol]25 mg/dLNormal7-25The [facility] SystemComment on above:Performed By: #### AMMON PRADO PHOS ####[facility] PATHOLOGY VUHRZCXZQH60[address] [place] [address], [address]GRPVX GAS, ARTERIALon 63-03-1801DF ABE4.7 mmol/L High-2.0-3.0The [facility] SystemComment on above:Performed By: #### CR BGA ####[facility] PATHOLOGY GYNTPKSYTP[address] [place] [address], [address]YC EAG319.5 mm AoHgtq47.0-45.0The [facility] SystemComment on above:Performed By: #### CR BGA ####[facility] PATHOLOGY ZBNZWHYHQC25[address] [place] [address], [address]NE PHA7.156Odphri7.350-7.450The [facility] SystemComment on above: Performed By: #### CR BGA ####[facility] PATHOLOGY VEZEGBCXGA[address] [place] [address], [address]GK PO264 mm NzNqj91-004Crd [facility] System Comment on above:Performed By: #### CR BGA ####[facility] PATHOLOGY VQUCVEFBKL[address] [place] [address], [address]PUA5 (CATEGORY)50%NormalThe [facility] CenterroHealth SystemComment on above:Performed By: #### CR BGA ####[facility] PATHOLOGY DOMDPCSUFQ[address] [place] [address], [address]GDC1 (Bld) [Moles/Vol] 29 mmol/AYcru75-46Bsp [facility] CenterroHealth SystemComment on above:Performed By: #### CR BGA ####[facility] PATHOLOGY NEEEVKXWKE[address] [place] [address], MODENasal CanulaNormalThe [facility] SystemComment on above:Result Comment: Highflow 40 LitersPerformed By: #### CR BGA ####[facility] PATHOLOGY IGJTNGEBYC1398 [place], [address]Znckka saturation in Blood91.8 %Low 95.0-99.0The [facility] CenterHealth SystemComment on above:Performed By: #### CR BGA ####[facility] PATHOLOGY ASLNRGGNAM[address] [place] [address], [address]QE ABE5.3 mmol/LHigh-2.0-3.0The [facility] CenterroHealth SystemComment on above:Performed By: #### CR BGA ####[facility] PATHOLOGY INJJUEKOEW8716[address] [place] [address], [address]ZH IKM110.7 mm TlClongn71.0-45.0The [facility] CenterHealth SystemComment on above:Performed By: #### CR BGA ####[facility] PATHOLOGY UNUUIZHVZS[address] [place] [address], [address]KR PHA7.946Hcmtls1.350-7.450The [facility] System Comment on above:Performed By: #### CR BGA ####[facility] PATHOLOGY QXNUZMQOJK[address] [place] [address], [address]BX PO270 mm QkOxn38-644Hae [facility] CenterroHealth SystemComment on above:Performed By: #### CR BGA ####[facility] PATHOLOGY SRCLFYNWKE[address]18[address] [place] [address], [address]CGF4 (CATEGORY)44% NormalThe [facility] CenterHealth SystemComment on above:Result Comment: 6 LPMPerformed By: #### CR BGA ####[facility] PATHOLOGY CNZZTBLVZX1035[address] [place] [address], [address]MFC9 (Bld) [Moles/Vol]30 mmol/TCppn33-91Lxe [facility] CenterroHealth SystemComment on above:Performed By: #### CR BGA ####[facility] PATHOLOGY ALDFJBGKLO[address]11[address] [place] [address], [address]YUFVHOTONSrlyymVbn [facility] CenterroHealth SystemComment on above:Result Comment: 18/04Performed By: #### CR BGA ####[facility] PATHOLOGY MMERMMYOHQ[address] [place] [address], [address]Yzgzym saturation in Blood94.5 %Low95.0-99.0The [facility] SystemComment on above:Performed By: #### CR BGA ####[facility] PATHOLOGY BMBKNMCATI[address] [place] [address], [address]OV ABE6.1 mmol/LHigh-2.0-3.0The [facility] SystemComment on above: Performed By: #### CR BGA ####[facility] PATHOLOGY DZQRVJDNPU[address] [place] [address], [address]MK JPB648.7 mm XhJjsytp00.0-45.0The [facility] SystemComment on above:Performed By: #### CR BGA ####[facility] PATHOLOGY QQIAZHJNJB[address] [place] [address], [address]DW PHA7.454High 7.350-7.450The [facility] CenterroHealth SystemComment on above:Performed By: #### CR BGA ####[facility] PATHOLOGY GPJYNQHHTG2694[address] [place] [address], [address]DF PO264 mm YpVfr09-569Llq [facility] CenterroHealth SystemComment on above:Performed By: #### CR BGA ####[facility] PATHOLOGY WUBMIXKHHU6244[address] [place] [address], FIO2 (CATEGORY)5 LPMNormalThe [facility] CenterroHealth SystemComment on above:Result Comment: 6LPMPerformed By: #### CR BGA ####[facility] PATHOLOGY VREJNFTEWV259[address] [place] [address], [address]NIL6 (Bld) [Moles/Vol]30 mmol/RIkmy46-25Zwz [facility] SystemComment on above:Performed By: #### CR BGA ####[facility] PATHOLOGY ZUOJMFDJIK39[address] [place] [address], [address]DUHPCERFZWkxvxqLrs [facility] CenterroHealth SystemComment on above:Performed By: #### CR BGA ####[facility] PATHOLOGY DBZZFJQZRC2138[address] [place] [address], [address]Pqrkyu saturation in Blood93.1 %Low95.0-99.0The [facility] SystemComment on above:Performed By: #### CR BGA ####[facility] PATHOLOGY ZJZYNSYHGT[address] [place] [address], [address]LVLAGYDI BLOOD COUNTon 98-40-1823Pqyxofdrpkb distribution width (RBC) [Ratio]15.7 %High11.5-14.5The [facility] CenterHealth SystemComment on above:Performed By: #### CBC ####[facility] PATHOLOGY JOVRWYHIGF9[address] [place] [address], [address]Jtnmzuqkha (Bld) [Volume fraction]27.5 %Low41.0-53.0The [facility] CenterHealth SystemComment on above:Performed By: #### CBC ####[facility] PATHOLOGY ZRBRAXVJYC6059[address] [place] [address], [address]Lzqcyzbyav (Bld) [Mass/Vol]9.1 g/dLLow 13.9-16.3The [facility] SystemComment on above:Performed By: #### CBC ####[facility] PATHOLOGY JYVHDBZVXX5835[address] [place] [address], [address]ODV (RBC) [Entitic mass]31.7 qkZrybvy31.0-34.0The [facility] SystemComment on above: Performed By: #### CBC ####[facility] PATHOLOGY CMHYRFAJVR4488[address] [place] [address], [address]MPBE (RBC) [Mass/Vol]32.9 g/cYApogjb20.0-35.9The [facility] SystemComment on above:Performed By: #### CBC ####[facility] PATHOLOGY KVEBMUHTXI0879[address] [place] [address], [address]BHB (RBC) [Entitic vol] 96 gEJvltqe94-854Dds [facility] SystemComment on above:Performed By: #### CBC ####[facility] PATHOLOGY PYVBOVFJNB0153[address] [place] [address], Platelet mean volume (Bld) [Entitic vol]6.7 fLLow7.5-11.2The [facility] System Comment on above:Performed By: #### CBC ####[facility] PATHOLOGY GJZMMMBJMK9[address] [place] [address], [address]Fvsxnnpmb (Bld) [#/Vol]386 10*3/uL Sczxpx823-765Vcd [facility] CenterroHealth SystemComment on above:Performed By: #### CBC ####S PATHOLOGY SLHEHYCSYM7849[address] [place] [address], [address]OEX (Bld) [#/Vol]2.86 10*6/uLLow4.50-5.90The [facility] CenterroHealth SystemComment on above: Performed By: #### CBC ####S PATHOLOGY ZLPLMTCOJE0655[address] [place] [address], [address]GBA (Bld) [#/Vol]9.8 10*3/uLNormal4.5-11.5The [facility] CenterroGerman Hospital SystemComment on above:Performed By: #### CBC ####S PATHOLOGY VXRZOAUURT9669[address] [place] [address], [address]Egjjweongg 2024 Mechanic Chief Authentication Interface Message TextNormWellmont Health SystemroGerman Hospital System Mechanic Chief Authentication Interface Message TextNoCarolinas ContinueCARE Hospital at PinevilleroHealth System MAGNESIUMon 11-73-0217Qlqtsyngq [Mass/Vol]2.2 mg/dLNormal1.9-2.7The [facility] SystemComment on above:Result Comment: Hemolysis presentPerformed By: #### AMMON PRADO PHOS ####S PATHOLOGY IVDRBZIVTS7112[address] [place] [address], 44 [address]PHOSPHORUSon 85-81-8622Anrruiltg [Mass/Vol]2.7 mg/dLNormal2.5-5.0The [facility] CenterroGerman Hospital SystemComment on above:Performed By: #### AMMON PRADO, PHOS ####[facility] HNRXVRUIIV[address] [place] [address], [address]Biuwcneg Noteson 54-51-4561Kplbekiqparvn Authentication Interface Message TextNormMorrow County Hospitale [facility] CenterroGerman Hospital SystemXR CHEST AP OR PA 1 VIEWon 19-07-2078IO CHEST AP OR PA 1 VIEW NormalThe [facility] CenterroHealth SystemXR Chest Single viewon 04-78-3041TZOYIEUPUCX: XR CHEST AP OR PA 1 VIEW [...] acute right rib fractures and internal fixation ofthe lateral right 7th-10th ribs. 2. Small right pleural effusion and mild scattered mid and lower right pulmonary subtalar atelectasis. 3. No pneumothorax. MACRO: None Gerber Fox, DO - 2024 EXAMINATION: XR CHEST AP [...] acute right rib fractures and internal fixation ofthe lateral right 7th-10th ribs. 2. Small right pleural effusion and mild scattered mid and lower right pulmonary subtalar atelectasis. 3. No pneumothorax. MACRO: None [facility] Study observation (narrative)[facility]XR Chest Single viewOrdered By: Gerber Mcdaniel on 46-99-7705QkdhcGsozqq Work Phone: [phone] Interactionon 32-72-5791Ollvifacjzkqf Authentication Interface Message TextNormalThe Delta Medical CenterMatch Point Partners SystemBASIC METABOLIC PANELon 36-12-5647Oyhiz gap [Moles/Vol]14 mmol/IAsfwmt93-42Qtz [facility] SystemComment on above:Performed By: #### CH8 ####S PATHOLOGY CAQUEDQZPE4215 [place], [address]Jweczlw [Mass/Vol]8.1 mg/dLLow8.6-10.3 The [facility] SystemComment on above:Performed By: #### CH8 ####S PATHOLOGY GQEPKENQUU9389 [place], [address]Shznfaws [Moles/Vol]99 mmol/UValqij36-733Hkh [facility] SystemComment on above:Performed By: #### CH8 ####[facility] PATHOLOGY HVCSOYXGXT7338 [place], [address]EJ1 [Moles/Vol]30 mmol/MYhujri63-75Vye [facility] SystemComment on above:Performed By: #### CH8 ####S PATHOLOGY DJNKPMVTRP3642 [place], [address]Pletdqannn [Mass/Vol]0.62 mg/dLLow0.70-1.30The [facility] System Comment on above:Performed By: #### CH8 ####S PATHOLOGY QYWDFHQTOQ7683 [place], [address]AKDEOCPOV GFR (CKD-EPI)95 mL/min/1.73sqmNormal>=60The [facility] SystemComment on above:Result Comment: 2020 CKD EPI Equation using Creatinine without RaceComment: Estimated glomerular filtration rate (eGFR) is calculated without a race coefficient. Values should be interpreted in the context of the patient's full clinical presentation.Reference:1. Rishi C, Jorge M, Nic SILVA, et al.. A Unifying Approach for GFR Estimation: Recommendations of the NKF-ASN Task Force on Reassessing the Inclusion of Race in Diagnosing Kidney Disease. [place] Islander Journal of Kidney Diseases 2021;79(2):268-88.e1.2. N Engl J Med 1 Vol. 385 Issue 19 Pages 6374-5724Performed By: #### CH8 ####S PATHOLOGY SIMLKZQZBR1096 [place], [address]Qmpvagl [Mass/Vol]108 mg/dLNormal 74-109The [facility] SystemComment on above:Performed By: #### CH8 ####S PATHOLOGY HRNSCIJCBZ0873 [place], [address]Vzlzvonhs [Moles/Vol]3.9 mmol/LNormal3.5-5.0The [facility] SystemComment on above: Performed By: #### CH8 ####S PATHOLOGY DXYXOQIULS5685 [place], [address]Swklli [Moles/Vol]139 mmol/JImwygd959-222Jgt [facility] SystemComment on above:Performed By: #### CH8 ####S PATHOLOGY KOULNJHWYH7147 [place], [address]Kdad nitrogen [Mass/Vol]24 mg/dLNormal7-25The [facility] SystemComment on above:Performed By: #### CH8 ####S PATHOLOGY TNERZHTYSF1602 [place], [address]Oasvs gap [Moles/Vol]11 mmol/ZTqhaga36-06Kao [facility] SystemComment on above:Performed By: #### MG, CH8, PHOS ####S PATHOLOGY VPGCLVKBLN4189 [place], [address]Gxcjtjk [Mass/Vol]8.3 mg/dLLow8.6-10.3 The [facility] SystemComment on above:Performed By: #### MG, CH8, RADS ####[facility] PATH[facility] NCXAUQXFVJ2005 [place], [address]Tvksubkp [Moles/Vol]98 mmol/NBripkg23-990Kdx [facility] SystemComment on above:Performed By: #### AMMON PRADO, RADS ####[facility] PATHOLOGY MJXJWULGGM8703 [place], [address]IK1 [Moles/Vol]32 mmol/NLnve38-70Tze [facility] CenterroHealth SystemComment on above:Performed By: #### AMMON PRADO, RADS ####[facility] PATHOLOGY BIJLZQSAFJ7919 [place], [address]Zmnjiouhzc [Mass/Vol] 0.66 mg/dLLow0.70-1.30The [facility] SystemComment on above:Performed By: #### AMMON PRADO, RADS ####[facility] PATHOLOGY LCXDPPMACO2467 [place], [address]TMTLVTLQS GFR (CKD-EPI)94 mL/min/1.73sqmNormal>=60The [facility] SystemComment on above:Result Comment: 2020 CKD EPI Equation using Creatinine without RaceComment: Estimated glomerular filtration rate (eGFR) is calculated without a race coefficient. Values should be interpreted in the context of the patient's full clinical presentation.Reference:1. Rishi C, Jorge M, Nic SILVA, et al.. A Unifying Approach for GFR Estimation: Recommendations of the NKF-ASN Task Force on Reassessing the Inclusion of Race in Diagnosing Kidney Disease. [place]er Journal of Kidney Diseases 2021;79(2):268-88.e1.2. N Engl J Med 2020 Vol. 385 Issue 19 Pages 0696-1146Performed By: #### AMMON PRADO, RADS ####[facility] PATHOLOGY RACTDQWAGK0306 [place], [address]Nmavnkg [Mass/Vol]99 mg/lMPljrqc45-974Smo [facility] SystemComment on above:Performed By: #### AMMON PRADO, PHOS ####[facility] PATHOLOGY FRBPDLINXH1231 [place], [address]Xxoqgbcxz [Moles/Vol]5.4 mmol/LHigh3.5-5.0The [facility] CenterroHealth SystemComment on above:Result Comment: Hemolysis presentPerformed By: ###AMMON VALDEZ PHOS ####[facility] PATHOLOGY XMYFSFHBYV7145[address] [place] [address], [address]Wvwnsg [Moles/Vol]136 mmol/YEcicyx108-637Enh [facility] CenterroHealth SystemComment on above:Performed By: #### AMMON PRADO, CHI ####[facility] PATHOLOGY ZPKUGSDILP[address] [place] [address], [address]Sxeh nitrogen [Mass/Vol]25 mg/dLNormal7-25The [facility] CenterHealth SystemComment on above:Performed By: #### AMMON PRADO PHOS ####[facility] PATHOLOGY ENYBRIVXOO8465[address] [place] [address], [address]VVLIW GAS, ARTERIALon 40-15-0626NG ABE5.6 mmol/L High-2.0-3.0The [facility] CenterHealth SystemComment on above:Performed By: #### CR BGA ####[facility] PATHOLOGY UKBLNHYVUS799[address] [place] [address], [address]TB VCM988.8 mm QrDnce95.0-45.0The [facility] CenterroHealth SystemComment on above:Performed By: #### CR BGA ####[facility] PATHOLOGY QNPXWHEKMA7039[address] [place] [address], [address]KT PHA7.034Agdzjo0.350-7.450The [facility] CenterroHealth SystemComment on above: Performed By: #### CR BGA ####S PATHOLOGY QDDHTAEGRC7801[address] [place] [address], [address]FH PO286 mm TzFmrdhq45-610Cvv [facility] System Comment on above:Performed By: #### CR BGA ####S PATHOLOGY OHCIIPUICO125[address] [place] [address], [address]ZQS2 (CATEGORY)50%NormalThe [facility] CenterHealth SystemComment on above:Performed By: #### CR BGA ####[facility] PATHOLOGY ABBIKUTTDF386[address] [place] [address], [address]RUO1 (Bld) [Moles/Vol] 31 mmol/JEfyj67-72Ujf [facility] CenterroHealth SystemComment on above:Performed By: #### CR BGA ####[facility] PATHOLOGY VOXNPVLRTX8245[address] [place] [address], MODENasal Canuniversity of mississippi medical centerNoGlenbeigh Hospitale [facility] SystemComment on above:Result Comment: HHFNC 60 LPMPerformed By: #### CR BGA ####[facility] PATHOLOGY AWSYMDICSW9585[address] [place] [address], [address]Wvdwdy saturation in Blood96.7 %Normal 95.0-99.0The [facility] CenterHealth SystemComment on above:Performed By: #### CR BGA ####[facility] PATHOLOGY GKWCAXXCPK8837[address] [place] [address], [address]KM ABE5.9 mmol/LHigh-2.0-3.0The [facility] CenterHealth SystemComment on above:Performed By: #### CR BGA ####[facility] PATHOLOGY CTDRBURVKC8408[address] [place] [address], [address]DD CDT542.7 mm LqKjfb45.0-45.0The [facility] CenterHealth SystemComment on above: Performed By: #### CR BGA ####[facility] PATHOLOGY HXNSGSQHLF6488[address] [place] [address], [address]MR PHA7.440Xnuvah4.350-7.450The [facility]roGerman [facility] System Comment on above:Performed By: #### CR BGA ####[facility] PATHOLOGY WZGBELGMRZ8[address] [place] [address], [address]LQ PO272 mm CpJnc21-280Gyv [facility] SystemComment on above:Performed By: #### CR BGA ####[facility] PATHOLOGY MANWWGILLR[address] [place] [address], [address]VPA7 (CATEGORY)40% NormalThe [facility] CenterHealth SystemComment on above:Performed By: #### CR BGA ####[facility] PATHOLOGY FJAHRWTVBS2676[address] [place] [address], [address]IAZ6 (Bld) [Moles/Vol]30 mmol/JEvdw36-05Jrs [facility] SystemComment on above:Performed By: #### CR BGA ####[facility] PATHOLOGY GGDTWFRDIH6306[address] [place] [address], [address]UJMIUbgry [facility] GlendaleroGerman Hospital SystemComment on above:Result Comment: high flowPerformed By: #### CR BGA ####[facility] PATHOLOGY KKGXISGMQN8667[address] [place] [address], [address]Msgjpm saturation in Blood94.5 %Low 95.0-99.0The [facility] CenterHealth SystemComment on above:Performed By: #### CR BGA ####[facility] PATHOLOGY UVTCYKICWG623[address] [place] [address], [address]RD ABE6.1 mmol/LHigh-2.0-3.0The [facility] CenterroHealth SystemComment on above:Performed By: #### CR BGA ####[facility] PATHOLOGY VRHQGXUKZX9956[address] [place] [address], [address]AW ZLE660.9 mm DbLjcu28.0-45.0The [facility] CenterHealth SystemComment on above: Performed By: #### CR BGA ####[facility] PATHOLOGY EQIQNBDDNA0414[address] [place] [address], [address]WO PHA7.478Itcboa8.350-7.450The [facility] System Comment on above:Performed By: #### CR BGA ####[facility] PATHOLOGY QLYZGCHSEH2688[address] [place] [address], [address]HZ PO263 mm LwOmf31-036Cqz [facility] SystemComment on above:Performed By: #### CR BGA ####[facility] PATHOLOGY MJCPBMLSUY964[address] [place] [address], [address]VRC2 (CATEGORY)4 LPM NormalThe [facility] CenterroHealth SystemComment on above:Performed By: #### CR BGA ####[facility] PATHOLOGY LSXJTQIMYW3754[address] [place] [address], [address]JSJ9 (Bld) [Moles/Vol]31 mmol/IGpot49-39Hwh [facility] CenterHealth SystemComment on above:Performed By: #### CR BGA ####[facility] PATHOLOGY FLDKFGDFEJ5629[address] [place] [address], [address]MGHERhqbg Canuniversity of mississippi medical centerNoC[facility] Clinic [facility] SystemComment on above: Performed By: #### CR BGA ####[facility] PATHOLOGY ETGRFRVIIN6887 [place], [address]Wcohjf saturation in Blood92.1 %Low95.0-99.0The [facility] CenterHealth SystemComment on above:Performed By: #### CR BGA ####[facility] PATHOLOGY NIGNTDVXRH2756[address] [place] [address], [address]ZODAWHUK BLOOD COUNTon 46-74-4497Mzspzctidnn distribution width (RBC) [Ratio]15.6 %High11.5-14.5The [facility] CenterHealth SystemComment on above:Performed By: #### CBC ####[facility] PATHOLOGY ERUBLDHYLA3558[address] [place] [address], [address]Densjjdrtf (Bld) [Volume fraction]30.1 %Low41.0-53.0The [facility] SystemComment on above: Performed By: #### CBC ####[facility] PATHOLOGY PAVFWBSGTH2867[address] [place] [address], [address]Jrxxtxcmkf (Bld) [Mass/Vol]9.9 g/dLLow13.9-16.3The [facility] SystemComment on above:Performed By: #### CBC ####[facility] PATHOLOGY HHATDZGUEU9[address] [place] [address], [address]ZNV (RBC) [Entitic mass]30.5 oyVwdjfr32.0-34.0The [facility] SystemComment on above:Performed By: #### CBC ####[facility] PATHOLOGY GSTMHOGDOA5875[address] [place] [address], [address]XYZD (RBC) [Mass/Vol]32.8 g/yAAjojst99.0-35.9The [facility] System Comment on above:Performed By: #### CBC ####[facility] PATHOLOGY CTSNYAXYAG9776[address] [place] [address], [address]SJO (RBC) [Entitic vol]93 fLNormal 80-100The [facility] SystemComment on above:Performed By: #### CBC ####[facility] PATHOLOGY CFZQEIHFGL[address] [place] [address], [address]Pgysxmqq mean volume (Bld) [Entitic vol]7.2 fLLow7.5-11.2The [facility] CenterHealth SystemComment on above:Performed By: #### CBC ####S PATHOLOGY IMANRLIMOV6758 [place], [address]Aztlglfoj (Bld) [#/Vol]396 10*3/mBVaelml308-294Tdb [facility] CenterHealth SystemComment on above:Performed By: #### CBC ####S PATHOLOGY NEYFUPUIXL0144[address] [place] [address], [address]WCN (Bld) [#/Vol]3.25 10*6/uLLow4.50-5.90The [facility] CenterroHealth SystemComment on above:Performed By: #### CBC ####[facility] PATHOLOGY LFVFTBGVDI5447[address] [place] [address], [address]XXK (Bld) [#/Vol]12.4 10*3/uLHigh4.5-11.5The [facility] SystemComment on above: Performed By: #### CBC ####[facility] PATHOLOGY CBUMWTHECD9189[address] [place] [address], [address]Bjlchnzeho 00-15-2121Vbepqyujnapxl Authentication Interface Message TextNormMorrow County Hospitale [facility] SystemTranscription Authentication Interface Message TextNoCleveland Clinic [facility] Hospital SystemMAGNESIUMon 05-24-2024 Magnesium [Mass/Vol]2.3 mg/dLNormal1.9-2.7The [facility] SystemComment on above:Result Comment: Hemolysis presentPerformed By: #### AMMON PRADO PHOS ####[facility] XDWVFVENQV7384[address] [place] [address], [address]RPRSYPBISDez 02-91-7623Jqxpetuui [Mass/Vol]3.0 mg/dLNormal2.5-5.0The [facility] System Comment on above:Performed By: #### AMMON PRADO, PHOS ####[facility] PATHOLOGY DAXJXQZGYT016[address] [place] [address], [address]Wasejrxj Noteson 66-22-9884Ejsjrpvcnmvqk Authentication Interface Message [id number] Pt needs to go on BiPap- no sitter available per nurse supervisor pastry- this RN will sit outside pt room while on bipap and will have another RN or CP sit while attending to other pt. RT here in room and aware of plan.NormalThe [facility] SystemTranscription Authentication Interface Message TextNormalThe [facility] Centerro[facility] SystemTranscription Authentication Interface Message TextNormalThe [facility] SystemTranscription Authentication Interface Message TextNormalThe [facility] CenterroMatch Point Partners SystemXR CHEST AP OR PA 1 VIEWon 63-16-2162YY CHEST AP OR PA 1 VIEWNormalThe [facility] CenterroGerman Hospital SystemXR Chest Single viewon 45-70-4241BPGJKUOVCWU: XR CHEST AP OR PA 1 VIEW 05/24/2024 07:03 AM CLINICAL HISTORY: Chest tube removal; Pneumothorax ASSOCIATED DIAGNOSIS: Chest tube removal Pneumothorax ORDERING PROVIDER: KATIE MILLS TECHNNINOSKA NOTE: COMPARISON: Comparison to 05/23/2024 FINDINGS: Lines, [...] significant change in pulmonary status. MACRO: None JYOTIArielle dolan MD - 05/24/2024 EXAMINATION: XR CHEST AP OR PA 1 VIEW 05/24/2024 07:03 AM CLINICAL HISTORY: Chest tube removal; Pneumothorax ASSOCIATED DIAGNOSIS: Chest tube removal Pneumothorax ORDERING PROVIDER: KATIE MILLS TECHNNINOSKA NOTE: COMPARISON: Comparison to 05/23/2024 FINDINGS: Lines, [...] significant change in pulmonary status. MACRO: None [facility] Study observation (narrative)[facility]XR Chest Single viewOrdered By: Arielle Conklin on 34-58-8575QyojqMukqks Work Phone: XR FEMUR LEFT 1 VIEWon 03-71-6425NU FEMUR LEFT 1 VIEW NormalThe [facility] CenterroHealth SystemXR PELVIS SINGLE VIEWon 86-58-5165AU PELVIS SINGLE VIEWNormalThe [facility] SystemBASIC METABOLIC PANELon 15-02-3808Lkgsr gap [Moles/Vol]11 mmol/KMxjigt28-87Aem [facility] SystemComment on above:Performed By: #### CHI VERDE MG ####[facility] PATHOLOG[facility] LCNFEAOJMN8651 [place], [address]Hcmlbmc [Mass/Vol]8.1 mg/dLLow8.6-10.3The [facility] SystemComment on above:Performed By: #### CHI VERDE MG ####[facility] PATHOLOGY VFGGKOQPBJ1430 [place], [address]Bokcusqe [Moles/Vol]98 mmol/FQjivda20-382Lvm [facility] SystemComment on above:Performed By: #### CHI VERDE MG ####[facility] PATHOLOGY SRINFYNCDO4013 [place], [address]MX2 [Moles/Vol]31 mmol/ABgrygi95-92Pgz [facility] SystemComment on above:Performed By: #### CHI VERED MG ####[facility] PATHOLOGY AXXRZTUHXC5994 [place], [address]Eipgoibrat [Mass/Vol] 0.58 mg/dLLow0.70-1.30The [facility] SystemComment on above:Performed By: #### CHI VERDE MG ####[facility] PATHOLOGY AMCCUWZBAH8547 [place], [address]HDWFMZECF GFR (CKD-EPI)97 mL/min/1.73sqmNormal>=60The [facility] SystemComment on above:Result Comment: 2020 CKD EPI Equation using Creatinine without RaceComment: Estimated glomerular filtration rate (eGFR) is calculated without a race coefficient. Values should be interpreted in the context of the patient's full clinical presentation.Reference:1. Rishi C, Jorge M, Nic SILVA, et al.. A Unifying Approach for GFR Estimation: Recommendations of the NKF-ASN Task Force on Reassessing the Inclusion of Race in Diagnosing Kidney Disease. [place]er Journal of Kidney Diseases 2021;79(2):268-88.e1.2. N Engl J Med 1 Vol. 385 Issue 19 Pages 3403-4276Performed By: #### CHI VERDE MG ####[facility] PATHOLOGY MIJKTVXLFW5329 [place], [address]Qzjryjm [Mass/Vol]99 mg/cMGpleam75-949Plk [facility] SystemComment on above:Performed By: #### RAD VERDES, MG ####[facility] PATHOLOGY USNEKFSBBQ1664 [place], [address]Lrrmlubtk [Moles/Vol]4.0 mmol/LNormal3.5-5.0The [facility]ro[facility] SystemComment on above:Performed By: #### CHIvis PHOS, MG ####S PATHOLOGY BDLXWMONBK3041 [place], [address]Ukmdus [Moles/Vol]136 mmol/FBfovsu536-012Bki [facility] SystemComment on above: Performed By: #### CHIvis PHOS, MG ####[facility] PATHOLOGY YJXQLCUMFD0610 [place], [address]Eced nitrogen [Mass/Vol]21 mg/dLNormal7-25The [facility] SystemComment on above:Performed By: #### CHIvis PHOS, MG ####S PATHOLOGY QRSYTFRGNK0503 [place], [address]AVEKYECN BLOOD COUNTon 99-94-4011Pliywuurdqg distribution width (RBC) [Ratio]16.2 %High 11.5-14.5The [facility]ro[facility] SystemComment on above:Performed By: #### CBC ####[facility] PATHOLOGY HZXUQIOCVF[address] [place] [address], [address]Easqudqiae (Bld) [Volume fraction]31.1 %Low41.0-53.0The [facility] Centerro[facility] SystemComment on above: Performed By: #### CBC ####[facility] PATHOLOGY ELTGGOPUNU[address] [place] [address], [address]Zpucmrdhoj (Bld) [Mass/Vol]10.2 g/dLLow13.9-16.3 The [facility]ro[facility] SystemComment on above:Performed By: #### CBC ####[facility] PATHOLOGY FFHGCQHIQH[address] [place] [address], [address]WVH (RBC) [Entitic mass]31.3 vkIlzgqx05.0-34.0The [facility] Centerro[facility] SystemComment on above:Performed By: #### CBC ####[facility] PATHOLOGY VPWTYXKYVE[address] [place] [address], [address]XADT (RBC) [Mass/Vol]32.8 g/lILaqwll22.0-35.9The [facility] Comment on above:Performed By: #### CBC ####[facility] PATHOLOGY HSFQSXXQWN[address] [place] [address], [address]VUD (RBC) [Entitic vol]96 fLNormal 80-100The [facility] Centerro[facility] SystemComment on above:Performed By: #### CBC ####[facility] PATHOLOGY MCGKKDDZYI[address] [place] [address], [address]Bunwyqqq mean volume (Bld) [Entitic vol]6.7 fLLow7.5-11.2The [facility] SystemComment on above:Performed By: #### CBC ####[facility] PATHOLOGY XLZLLRZYDY0[address] [place] [address], [address]Wddraceku (Bld) [#/Vol]251 10*3/bXQjesee587-995Irj [facility]ro[facility] SystemComment on above:Performed By: #### CBC ####[facility] PATHOLOGY RIJIKRKQRG[address] [place] [address], [address]INL (Bld) [#/Vol]3.26 10*6/uLLow4.50-5.90The [facility] SystemComment on above:Performed By: #### CBC ####[facility] PATHOLOGY VKOONEUHFE6[address] [place] [address], [address]USE (Bld) [#/Vol]10.3 10*3/uLNormal4.5-11.5The [facility] SystemComment on above: Performed By: #### CBC ####[facility] PATHOLOGY FDRUEUAZPC7995 [place], [address]GSWSKMNOAlp 87-22-1086Mndpurjbi [Mass/Vol]1.9 mg/dLNormal1.9-2.7The [facility] SystemComment on above:Performed By: #### CH8, PHOS, MG ####[facility] PATHOLOGY MHCWTJMGGJ6295 [place], [place], [address]PHOSPHORUSon 57-45-6210Gyzolocdb [Mass/Vol]2.4 mg/dLLow2.5-5.0The [facility] SystemComment on above:Performed By: #### CH8, PHOS, MG ####[facility] PATHOLOGY DITJBZUQTZ1793 [place], [address]Yyvmsxpa Noteson 44-75-5714Zqzytrbtogoon Authentication Interface Message TextNoC[facility] SystemXR CHEST AP OR PA 1 VIEWon 53-84-9981UN CHEST AP OR PA 1 VIEW NormalThe [facility] SystemXR CHEST AP OR PA 1 VIEWNormCleveland Clinic [facility] System XR Chest Single viewon 12-49-8207AKESLSWWEEB: XR CHEST AP OR PA 1 VIEW [...] Bibasilar heterogeneous opacities likely representing atelectasis. No appreciableeffusion. Cardiomediastinal silhouette: Stable appearance of cardiomediastinal silhouette. Musculoskeletal: No significant interval change IMPRESSION: Interval removal of the bladder and right apical thoracostomy tube with small right apical pneumothorax noted. No appreciable left-sided pneumothorax. Otherwise, unchanged pulmonary findings. Vignesh Luevano MD - 05/23/2024 EXAMINATION: XR CHEST AP [...] Bibasilar heterogeneous opacities likely representing atelectasis. No appreciableeffusion. Cardiomediastinal silhouette: Stable appearance of cardiomediastinal silhouette. Musculoskeletal: No significant interval change IMPRESSION: Interval removal of the bladder and right apical thoracostomy tube with small right apical pneumothorax noted. No appreciable left-sided pneumothorax. Otherwise, unchanged pulmonary findings. [facility] (n[facility]ative)[facility]XR Chest Single viewOrdered By: Vignesh Higuera on 76-64-3500JgtemNflriy Work Phone: bASIC METABOLIC PANELon 83-68-9210Eowzs gap [Moles/Vol]9 mmol/ZEzh47-48Hnr [facility] SystemComment on above:Performed By: #### MG, CH8, PHOS ####[facility] PATHOLOGY IRXIKJLIZR6058 [place], [address]Mnvlpzf [Mass/Vol]7.9 mg/dLLow8.6-10.3The [facility] Comment on above:Performed By: #### MG, CH8, PHOS ####[facility] PATHOLOGY PNDHFOXGAT1269 [place], [address]Ypitkiww [Moles/Vol]101 mmol/IOuzbvt29-855Toi [facility] SystemComment on above:Performed By: #### MG, CH8, PHOS ####[facility] PATHOLOGY DKCVPOFENP4992 [place], [place], [address]PQ1 [Moles/Vol]30 mmol/XIhhoch29-99Ylm [facility] SystemComment on above:Performed By: #### MG, CH8, PHOS ####[facility] PATHOLOGY AIUPISOZKE4149 [place], [address]Gfylrxkzfa [Mass/Vol]0.62 mg/dLLow 0.70-1.30The [facility] SystemComment on above:Performed By: ###AMMON VALDEZ PHOS ####[facility] PATHOLOGY QEYIWLCWRG8305 [place], ESTIMATED GFR (CKD-EPI)95 mL/min/1.73sqmNormal>=60The [facility] SystemComment on above:Result Comment: 2020 CKD EPI Equation using Creatinine without RaceComment: Estimated glomerular filtration rate (eGFR) is calculated without a race coefficient. Values should be interpreted in the context of the patient's full clinical presentation.Reference:1. Rishi C, Jorge M, Nic SILVA, et al.. A Unifying Approach for GFR Estimation: Recommendations of the NKF-ASN Task Force on Reassessing the Inclusion of Race in Diagnosing Kidney Disease. [place] Journal of Kidney Diseases 2021;79(2):268-88.e1.2. N Engl J Med 1 Vol. 385 Issue 19 Pages 9088-8986Performed By: ###AMMON VALDEZ PHOS ####[facility] PATHOLOGY FONPOHXGOP0640 [place], [address]Qatdbuc [Mass/Vol]117 mg/hXOkbf20-931Dfd [facility] SystemComment on above:Performed By: ###AMMON VALDEZ PHOS ####[facility] PATHOLOGY CHKPJYYDXI8046 [place], [place], 44 Potassium [Moles/Vol]3.6 mmol/LNormal3.5-5.0The [facility] System Comment on above:Performed By: ###AMMON VALDEZ PHOS ####[facility] PATHOLOGY UWSMLOIEWC6927 [place], [address]Uijplo [Moles/Vol]136 mmol/PEensfg694-371Xzf [facility] SystemComment on above:Performed By: ###AMMON VALDEZ PHOS ####[facility] PATHOLOGY PQUZQKAIHD9955 [place], Urea nitrogen [Mass/Vol]19 mg/dLNormal7-25The [facility] SystemComment on above:Performed By: ###AMMON VALDEZ PHOS ####[facility] PATHOLOGY USRIELEYFH9245 [place], [address]PBJLZUIK BLOOD COUNTon 05-22-2024 Erythrocyte distribution width (RBC) [Ratio]16.2 %High11.5-14.5The [facility] Center[facility] SystemComment on above:Performed By: #### CBC ####[facility] PATHOLOGY ALIYYIEOUZ[address] [place] [address], [address]Dubkdlwjkk (Bld) [Volume fraction]27.5 %Low41.0-53.0The [facility] Center[facility] SystemComment on above:Performed By: #### CBC ####[facility] PATHOLOGY JYLLEKQZZL10[address] [place] [address], Hemoglobin (Bld) [Mass/Vol]9.3 g/dLLow13.9-16.3The [facility] Center[facility] SystemComment on above:Performed By: #### CBC ####[facility] PATHOLOGY QLHIIMSEXK9909[address] [place] [address], [address]LPH (RBC) [Entitic mass]31.8 mjRbmhxx66.0-34.0The [facility] Center[facility] SystemComment on above:Performed By: #### CBC ####[facility] PATHOLOGY RPSEHVOOIH[address] [place] [address], [address]OOBA (RBC) [Mass/Vol] 33.8 g/xKZdihvc98.0-35.9The [facility] Center[facility] SystemComment on above:Performed By: #### CBC ####[facility] PATHOLOGY XQPRLDGUQC9735[address] [place] [address], [address]ZUT (RBC) [Entitic vol]94 vGAcdhph71-935Nqf [facility] Center[facility] SystemComment on above:Performed By: #### CBC ####[facility] PATHOLOGY TXTNRWEHGR9043[address] [place] [address], [address]Jhmtjlzw mean volume (Bld) [Entitic vol]6.5 fLLow 7.5-11.2The [facility] Center[facility] SystemComment on above:Performed By: #### CBC ####[facility] PATHOLOGY PJFJIWPVTO0175[address] [place] [address], [address]Rssxxsncl (Bld) [#/Vol]214 10*3/zDAifiuw532-200Gmf [facility] SystemComment on above: Performed By: #### CBC ####S PATHOLOGY EXIVXFYTMC8948 [place], [address]QKV (Bld) [#/Vol]2.93 10*6/uLLow4.50-5.90The [facility] SystemComment on above:Performed By: #### CBC ####S PATHOLOGY MKTKQUNYSD6541 [place], [address]BXS (Bld) [#/Vol]8.7 10*3/uLNormal4.5-11.5The [facility] SystemComment on above:Performed By: #### CBC ####S PATHOLOGY KQTGRXECZC6137 [place], MAGNESIUMon 66-94-4759Wjhyxugsa [Mass/Vol]2.1 mg/dLNormal1.9-2.7The [facility] Center[facility] SystemComment on above:Performed By: #### MG, CH8, PHOS ####S PATHOLOGY WQPNINAGVV0298 [place], [address]TBBKCALXAFdf 05-22-2024 Phosphate [Mass/Vol]2.0 mg/dLLow2.5-5.0The [facility] SystemComment on above: Performed By: #### MG, CH8, PHOS ####S PATHOLOGY MBQIBFXOLI3982 [place], [address]Szbhilri Noteson 99-29-6313Ocphwxdlkrfxs Authentication Interface Message TextESP catheter removed, blue tip in-tact. No signs of infection at site or hematoma formation. Adhesive bandage placed over puncture site. Rahul Azevedo DO AnesthesiologyNormC[facility] Clinic [facility] SystemTranscription Authentication Interface Message TextNormC[facility] Clinic [facility]st [facility] SystemProgress Notes - NoteWriteron 89-24-9782Iwhwuvltqvmlm Authentication Interface Message [id number]: DO Wright notified of pt monitor alarming high HR. HR fluctuating between 115-130's. EKG obtained, BP 139/77(94) O2 94%. Pt alert and oriented. No new orders at this time.NormalThe [facility] SystemXR CHEST AP OR PA 1 VIEWon 12-06-6223UZ CHEST AP OR PA 1 [facility] SystemXR Chest Single viewon 01-44-5218ATZZGVLWFWK: XR CHEST AP OR PA 1 VIEW [...] findings similar to prior. No appreciable pneumothorax. RADIOLOGYVignesh Higuera MD - 05/22/2024 EXAMINATION: XR CHEST [...] findings similar to prior. No appreciable pneumothorax. [facility] observation (narrative)[facility]XR Chest Single viewOrdered By: Vignesh Higuera on 96-06-5808PgjigYeqctf Work Phone: aNTJ FXA-LMW HEPARINon 60-92-4771ZYXQ FXA-LMW HEPARIN ASSAY0.37 IU/mLNormalThe [facility] SystemComment on above:Order Comment: The recommended therapeutic range for treatment of thrombosis with Low Molecular Weight Heparin is 0.5 - 1.0 IU/mLThe recommended range for VTE prophylaxis with Low Molecular Weight Heparin is 0.2 - 0.4 IU/mL.Performed By: #### ANGELINA ####[facility] PATHOLOGY PNSGBRSDMS1140 [place], [address]HFKMT METABOLIC PANELon 68-94-9109Rktfm gap [Moles/Vol]10 mmol/HZsaydo09-86Mcb [facility] SystemComment on above:Performed By: #### CHI VERDE MG ####[facility] PATHOLOGY MQHUHKIDTH8996 [place], [address]Pevwhnn [Mass/Vol]7.3 mg/dLLow8.6-10.3The [facility] SystemComment on above:Performed By: #### CHI VERDE MG ####[facility] PATHOLOGY JDORBKIRMH7196 [place], [address]Nofacrch [Moles/Vol]100 mmol/DUyjmyy96-623Icw [facility] SystemComment on above:Performed By: #### CHI VERDE MG ####[facility] PATHOLOGY NZFEMQDDDQ4989 [place], [address]DA7 [Moles/Vol]26 mmol/UFfppuv06-92Skr [facility] SystemComment on above:Performed By: #### CHI VERDE MG ####[facility] PATHOLOGY ODQJAMUDMX0283 [place], [address]Rurctmsxpl [Mass/Vol]0.81 mg/dLNormal0.70-1.30The [facility] SystemComment on above:Performed By: #### CHI VERDE MG ####[facility] PATHOLOGY HRVCPYZQKU3137 [place], [address]BQDFIVOCE GFR (CKD-EPI)88 mL/min/1.73sqmNormal>=60The [facility] SystemComment on above: Result Comment: 2020 CKD EPI [...] Inclusion of Race in Diagnosing Kidney Disease. [place] Journal of Kidney Diseases 2021;79(2):268-88.e1.2. N Engl J Med 2020 Vol. 385 Issue 19 Pages 7006-2146Performed By: #### CHI VERDE MG ####MHAlfonzo PATHOLOGY HMGXDXWIOM6663 [place], [address]Rzljqhs [Mass/Vol]160 mg/sJKaik43-196Fwz [facility] SystemComment on above:Performed By: #### CHI VERDE MG ####MHAlfonzo PATHOLOGY LISYBESHSP2439 [place], [place], [address] Potassium [Moles/Vol]4.5 mmol/LNormal3.5-5.0The [facility] System Comment on above:Performed By: #### CHI VERDE MG ####[facility] PATHOLOGY WLIOEXQZSV7150 [place], [address]Njpzve [Moles/Vol]131 mmol/QLth278-489Xli [facility] SystemComment on above:Performed By: #### CHI VERDE MG ####[facility] PATHOLOGY PMVJSYBQGZ7073 [place], [place], 44 Urea nitrogen [Mass/Vol]23 mg/dLNormal7-25The [facility] SystemComment on above:Performed By: #### CHI VERDE MG ####[facility] PATHOLOGY BKFITUIFAS5102 [place], [address]TEGUY GAS, ARTERIALon 34-16-1908JM JOSEPH 2.9 mmol/LNormal-2.0-3.0The [facility] SystemComment on above:Performed By: #### CR BGA ####[facility] PATHOLOGY LEVSEWJNJC6209 [place], [address]EO QYZ795.6 mm HgLow35.0-45.0The [facility] SystemComment on above: Performed By: #### CR BGA ####[facility] PATHOLOGY PSOKMYZGIH[address] [place] [address], [address]HI PHA7.274Cohv2.350-7.450The [facility] System Comment on above:Performed By: #### CR BGA ####[facility] PATHOLOGY LTCBMPCAIE0[address] [place] [address], [address]XB PO283 mm XoEignxl45-032Tyy [facility] SystemComment on above:Performed By: #### CR BGA ####[facility] PATHOLOGY SIVQSLPBMJ85[address] [place] [address], [address]SKJ2 (CATEGORY)50% NormalThe [facility] SystemComment on above:Performed By: #### CR BGA ####[facility] PATHOLOGY UAOZPHDGCE7[address] [place] [address], [address]DCX4 (Bld) [Moles/Vol]26 mmol/WAskgbm90-38Dlv [facility] SystemComment on above:Performed By: #### CR BGA ####[facility] PATHOLOGY SVRBHRZWSC98[address] [place] [address], [address]HSYDJnzzNgjpzwRop [facility] SystemComment on above:Performed By: #### CR BGA ####[facility] PATHOLOGY TPAQAZTTNI52[address] [place] [address], [address]Cwtiar saturation in Blood97.4 %Nherxn36.0-99.0The [facility] System Comment on above:Performed By: #### CR BGA ####[facility] PATHOLOGY XDIALUQLOD8649[address] [place] [address], [address]YEYLWGUU BLOOD COUNTon 05-21-2024 Erythrocyte distribution width (RBC) [Ratio]16.3 %High11.5-14.5The [facility] SystemComment on above:Performed By: #### CBC ####[facility] PATHOLOGY JCETDFZMOG6789[address] [place] [address], [address]Isqlcmaiif (Bld) [Volume fraction]25.4 %Low41.0-53.0The [facility] SystemComment on above:Performed By: #### CBC ####[facility] PATHOLOGY AFHEDBZRLF89[address] [place] [address], Hemoglobin (Bld) [Mass/Vol]8.5 g/dLLow13.9-16.3The [facility] SystemComment on above:Performed By: #### CBC ####[facility] PATHOLOGY PVRCWKUJUE[address] [place] [address], [address]ZGO (RBC) [Entitic mass]31.3 xaJfqaiu19.0-34.0The [facility] SystemComment on above:Performed By: #### CBC ####[facility] PATHOLOGY ILLUFNTRYZ[address] [place] [address], [address]TTUS (RBC) [Mass/Vol] 33.6 g/sGTcnloq94.0-35.9The [facility] Center[facility] SystemComment on above:Performed By: #### CBC ####[facility] PATHOLOGY EABYYTAYSZ15[address] [place] [address], [address]RXT (RBC) [Entitic vol]93 kPQtdymv13-197Szi [facility] SystemComment on above:Performed By: #### CBC ####[facility] PATHOLOGY XMPCRNPNSW[address] [place] [address], [address]Qtbzfyvv mean volume (Bld) [Entitic vol]6.9 fLLow 7.5-11.2The [facility] Center[facility] SystemComment on above:Performed By: #### CBC ####[facility] PATHOLOGY QODVIIJQKN[address] [place] [address], [address]Zijpazekv (Bld) [#/Vol]159 10*3/uCLssbjd384-065Gfd [facility] SystemComment on above: Performed By: #### CBC ####[facility] PATHOLOGY FMXMOYGDKF[address] [place] [address], [address]ERK (Bld) [#/Vol]2.73 10*6/uLLow4.50-5.90The [facility] Center[facility] SystemComment on above:Performed By: #### CBC ####[facility] PATHOLOGY RQJPWLSAAN8[address] [place] [address], [address]ZEE (Bld) [#/Vol]7.4 10*3/uLNormal4.5-11.5The [facility] SystemComment on above:Performed By: #### CBC ####[facility] PATHOLOGY AEFGAXVFTM0495 [place], Care Plan Noteon 45-98-5685Svzsldbnvxrhz Authentication Interface Message Text NormalThe [facility] SystemConsultson 52-36-6622Idzsbhwpfaats Authentication Interface Message TextNormalThGood Samaritan [facility] SystemMAGNESIUMon 05-21-2024 Magnesium [Mass/Vol]1.9 mg/dLNormal1.9-2.7The [facility] SystemComment on above:Performed By: #### CH8, PHOS, MG ####[facility] PATHOLOGY WEBZMXAEPZ6237 [place], [address]CWOGUJGWFHwr 83-13-5973Mshtipfwv [Mass/Vol]2.7 mg/dLNormal2.5-5.0The [facility] SystemComment on above:Performed By: #### CH8, PHOS, MG ####[facility] PATHOLOGY ARJZMPHKVI0199 [place], [address]Wqldbten Noteson 21-10-9186Aedetqrqktksk Authentication Interface Message TextNormC[place] [facility] SystemTranscription Authentication Interface Message TextNorm[facility] [facility] SystemTranscription Authentication Interface Message TextNormMorrow County Hospitale [facility] SystemXR ABDOMEN AP 1 VIEWon 41-77-9626LL ABDOMEN AP 1 VIEWNormalThe [facility] SystemXR CHEST AP OR PA 1 VIEWon 92-70-8050LO CHEST AP OR PA 1 VIEWNormalThe [facility] SystemXR CHEST AP OR PA 1 VIEWNormalThe [facility] SystemXR CHEST AP OR PA 1 VIEWNormal The [facility] SystemXR Chest Single viewon 63-64-2977KFKGMINTSPB: XR CHEST AP OR PA 1 VIEW [...] projecting approximately 4.3 cm above the level ofthe vivien. Unchanged positions of the right-sided chest tubes overlying the inferior right upper lung zone andperipheral right upper lung zone. Unchanged position of the left IJ approach central venous catheter with tip overlying the SVC. A partially visualized enteric tube is seen coursing down the midline from below with distal aspectoverlying the proximal gastric body. The tip is not included in the xqgek-zn-qfrd. Lungs and pleura: Similar loculated right-sided pleural effusion. No sizable left pleural effusion.No visible pneumothorax. Similar patchy bilateral mid and lower lung zone airspace opacities, likely reflecting atelectasis. Cardiomediastinal silhouette: The cardiac silhouette is normal in size. Atherosclerotic calcifications are present in the thoracic aorta. Musculoskeletal: Partially visualized ORIF hardware fixating multiple right- sided rib fractures. Similar right lateral chest wall emphysema. IMPRESSION: Satisfactory endotracheal tube position. Unchanged 2 right-sided chest tube positions. No visible pneumothorax. Similar loculated right sided pleural effusion. Similar patchy bilateral pulmonary opacities, likely atelectasis. MACRO: None RADIOLOGYSchJerrell perez MD - 05/21/2024 EXAMINATION: XR CHEST AP OR PA 1 VIEW 05/21/2024 05:57 AM CLINICAL HISTORY: Chest tube assessment; Endotracheal tube assessment ASSOCIATED DIAGNOSIS: Chest tube assessment Endotracheal tube assessment ORDERING PROVIDER: NEYDA BOBBY TECHNNINOSKA NOTE: COMPARISON: XR CHEST AP OR PA 1 VIEW 05/20/2024, 5:05 PM FINDINGS: Lines, tubes, and devices: An endotracheal tube is in place with distal tip projecting approximately 4.3 cm above the level ofthe vivien. Unchanged positions of the right-sided chest tubes overlying the inferior right upper lung zone andperipheral right upper lung zone. Unchanged position of the left IJ approach central venous catheter with tip overlying the SVC. A partially visualized enteric tube is seen coursing down the midline from below with distal aspectoverlying the proximal gastric body. The tip is not included in the urvzy-uc-nhcw. Lungs and pleura: Similar loculated right-sided pleural effusion. No sizable left pleural effusion.No visible pneumothorax. Similar patchy bilateral mid and lower lung zone airspace opacities, likely reflecting atelectasis. Cardiomediastinal silhouette: The cardiac silhouette is normal in size. Atherosclerotic calcifications are present in the thoracic aorta. Musculoskeletal: Partially visualized ORIF hardware fixating multiple right- sided rib fractures. Similar right lateral chest wall emphysema. IMPRESSION: Satisfactory endotracheal tube position. Unchanged 2 right-sided chest tube positions. No visible pneumothorax. Similar loculated right sided pleural effusion. Similar patchy bilateral pulmonary opacities, likely atelectasis. MACRO: None [facility] (narrative)[facility] Chest Single viewOrdered By: Jerrell Henry on 40-76-7083VepinUvvszz Work Phone: anesthesia Postprocedure Evaluationon 05-20-2024 Mechanic Chief Authentication Interface Message [employer]Norm[employer] [facility] Anesthesia Preprocedure Evaluationon 91-00-1640Pfszlokeqfpcf Authentication Interface Message TextNormalThe [facility] SystemAnesthesia Transfer Of Careon 49-51-8083Hawqqifytlppr Authentication Interface Message TextNormMorrow County Hospitale [facility] SystemBASIC METABOLIC PANELon 11-25-7165Gdlra gap [Moles/Vol]10 mmol/KAyusmc96-42Qis [facility] SystemComment on above:Performed By: #### CH8 ####S PATHOLOGY SVKJEBOGMJ8515 [place], [place], Calcium [Mass/Vol]7.6 mg/dLLow8.6-10.3The [facility] SystemComment on above: Performed By: #### CH8 ####S PATHOLOGY HKTGROVAAQ1323 [place], [address]Gptfjjjh [Moles/Vol]101 mmol/VNcdmpz31-879Lxr [facility] SystemComment on above:Performed By: #### CH8 ####S PATHOLOGY WSHEOOYBRW5924 [place], [address]DO5 [Moles/Vol]27 mmol/UIztaln32-57Tpb [facility] SystemComment on above:Performed By: #### CH8 ####S PATHOLOGY ZGJEQJFCCQ2946 [place], [place], Creatinine [Mass/Vol]0.80 mg/dLNormal0.70-1.30The [facility] SystemComment on above:Performed By: #### CH8 ####S PATHOLOGY LQILCDAFSL9686 [place], [address]JNERGXNFE GFR (CKD-EPI)88 mL/min/1.73sqmNormal>=60 The [facility] SystemComment on above:Result Comment: 2020 CKD EPI Equation using Creatinine without RaceComment: Estimated glomerular filtration rate (eGFR) is calculated without a race coefficient. Values should be interpreted in the context of the patient's full clinical presentation.Reference:1. Rishi C, Jorge M, Nic SILVA, et al.. A Unifying Approach for GFR Estimation: Recommendations of the NKF-ASN Task Force on Reassessing the Inclusion of Race in Diagnosing Kidney Disease. [place] Journal of Kidney Diseases 2021;79(2):26 8-88.e1.2. N Engl J Med 2020 Vol. 385 Issue 19 Pages 2103-3430Performed By: #### CH8 ####[facility] PATHOLOGY LLHWSAWFZX0182 [place], [place], Glucose [Mass/Vol]125 mg/bJTyut92-856Tau [facility] SystemComment on above: Performed By: #### CH8 ####[facility] PATHOLOGY CBDFNYHBDX3855 [place], [address]Dlmozsmqf [Moles/Vol]4.5 mmol/LNormal3.5-5.0The [facility] SystemComment on above:Performed By: #### CH8 ####[facility] PATHOLOGY UIAJFKEPFU6435 [place], [address]Lxafub [Moles/Vol]133 mmol/HUsv339-615Qsa [facility] SystemComment on above:Performed By: #### CH8 ####S PATHOLOGY JKRUZCPABK6477 [place], [address]Alvg nitrogen [Mass/Vol]21 mg/dLNormal7-25The [facility] SystemComment on above: Performed By: #### CH8 ####[facility] PATHOLOGY TTXASMKAZC3991 [place], [address]Ardzy gap [Moles/Vol]10 mmol/ZIynhbr03-20Tfx [facility] SystemComment on above:Performed By: #### CK, MG, PHOS, TRIG, CH8 ####S PATHOLOGY FAMCGCMAVY2017 [place], [place], Calcium [Mass/Vol]7.9 mg/dLLow8.6-10.3The [facility] SystemComment on above: Performed By: #### CK, MG, PHOS, TRIG, CH8 ####[facility] PATHOLOGY ZKSAMEXQYX1087 [place], [address]Ihsjmtsr [Moles/Vol]99 mmol/LNormal 98-107The [facility] SystemComment on above:Performed By: #### CK, MG, PHOS, TRIG, CH8 ####S PATHOLOGY TRBXZYIJIY7888 [place], [address]PN1 [Moles/Vol]26 mmol/GQedzon21-05Kac [facility] SystemComment on above:Performed By: #### CK, MG, PHOS, TRIG, CH8 ####[facility] PATHOLOGY PCLRLGPNXX6561 [place], [address]Twidnurala [Mass/Vol] 0.93 mg/dLNormal0.70-1.30The [facility] SystemComment on above:Performed By: #### CK, MG, PHOS, TRIG, CH8 ####[facility] PATHOLOGY ZBRDJPNOAB4368 [place], [address]LCBQKBEHA GFR (CKD-EPI)82 mL/min/1.73sqmNormal>=60 The [facility] SystemComment on above:Result Comment: 2020 CKD EPI Equation using Creatinine without RaceComment: Estimated glomerular filtration rate (eGFR) is calculated without a race coefficient. Values should be interpreted in the context of the patient's full clinical presentation.Reference:1. Rsihi C, Jorge M, Nic SILVA, et al.. A Unifying Approach for GFR Estimation: Recommendations of the NKF-ASN Task Force on Reassessing the Inclusion of Race in Diagnosing Kidney Disease. [place] Journal of Kidney Diseases 2021;79(2):26 8-88.e1.2. N Engl J Med 1 Vol. 385 Issue 19 Pages 3212-8629Performed By: #### CK, MG, PHOS, TRIG, CH8 ####S PATHOLOGY KUEVYRPCUW[address] [place] [address], [address]Xuinooj [Mass/Vol]126 mg/aXEhxb84-472Ybg [facility] SystemComment on above:Performed By: #### CK, MG, PHOS, TRIG, CH8 ####[facility] PATHOLOGY LGPIVOYBRB6826[address] [place] [address], Potassium [Moles/Vol]4.3 mmol/LNormal3.5-5.0The [facility] SystemComment on above:Performed By: #### CK, MG, PHOS, TRIG, CH8 ####[facility] PATHOLOGY ISMWTTZQKR9588[address] [place] [address], [address]Lfrxgc [Moles/Vol]131 mmol/LJyg222-383Nrc [facility] SystemComment on above:Performed By: #### CK, MG, PHOS, TRIG, CH8 ####[facility] PATHOLOGY DFJHRRJJZZ9154[address] [place] [address], [address]Glec nitrogen [Mass/Vol]30 mg/dLHigh7-25The [facility] Comment on above:Performed By: #### CK, MG, PHOS, TRIG, CH8 ####[facility] PATHOLOGY XPMADJMZFR5215[address] [place] [address], [address]KXOAF GAS, ARTERIALon 91-14-6720LA ABE1.6 mmol/LNormal-2.0-3.0The [facility] Center[facility] SystemComment on above: Performed By: #### CR GLU, CR BGA, CR COOX, CR ICA, LACT, CR LYTES ####[facility] PATHOLOGY PBVXNEPOXH8994Ypp[address]ehj[address] [place] [address], [address]AV KKM338.6 mm RlYeuc49.0-45.0The [facility] SystemComment on above:Performed By: #### CR GLU, CR BGA, CR COOX, CR ICA, LACT, CR LYTES ####[facility] PATHOLOGY SJPQGLTZFG4624[address] [place] [address], [address]KP PHA7.014Kxk6.350-7.450The [facility] SystemComment on above:Performed By: #### CR GLU, CR BGA, CR COOX, CR ICA, LACT, CR LYTES ####[facility] PATHOLOGY JZNDNPRODT3256QxkgsBpekah[address] [place] [address], [address]PL RB6196 mm EdEyzl73-958Nog [facility] System Comment on above:Performed By: #### CR GLU, CR BGA, CR COOX, CR ICA, LACT, CR LYTES ####[facility] PATHOLOGY YOMHVUXIMV6108ZpopzVqqgbk[address] [place] [address], HCO3 (Bld) [Moles/Vol]27 mmol/LSxnafz33-51Iwt [facility] SystemComment on above:Performed By: #### CR GLU, CR BGA, CR COOX, CR ICA, LACT, CR LYTES ####[facility] PATHOLOGY DNCEIHJNZO0053EzyxgLdlkeb[address] [place] [address], [address]Fzdgoj saturation in Blood98.7 %Nnewfs00.0-99.0The [facility] SystemComment on above: Performed By: #### CR GLU, CR BGA, CR COOX, CR ICA, LACT, CR LYTES ####[facility] PATHOLOGY NWOIMNTFBJ3708SrtnaOcgjnu[address] [place] [address], [address]KZ ABE1.7 mmol/LNormal-2.0-3.0The [facility] SystemComment on above:Performed By: #### CR COOX, CR LYTES, LACT, CR GLU, CR BGA, CR ICA ####[facility] PATHOLOGY POKHGUGSFG[address] [place] [address], [address]WX ORX934.2 mm ShIfcw24.0-45.0The [facility] SystemComment on above:Performed By: #### CR COOX, CR LYTES, LACT, CR GLU, CR BGA, CR ICA ####[facility] PATHOLOGY HRZEBZBICJ6847QkhvdHmjcsb[address] [place] [address], [address]UK PHA7.866Ecg0.350-7.450The [facility] System Comment on above:Performed By: #### CR COOX, CR LYTES, LACT, CR GLU, CR BGA, CR ICA ####[facility] PATHOLOGY OOCUJCKKIC1595LyljrHrdadz[address] [place] [address], [address]TU UU7620 mm IrUqui07-998Rop [facility] SystemComment on above:Performed By: #### CR COOX, CR LYTES, LACT, CR GLU, CR BGA, CR ICA ####[facility] PATHOLOGY DVAPZRBWNN6255IhyikBvrudj[address] [place] [address], [address]EDQ7 (Bld) [Moles/Vol]28 mmol/CUfiqza76-37Qfj [facility] SystemComment on above:Performed By: #### CR COOX, CR LYTES, LACT, CR GLU, CR BGA, CR ICA ####[facility] PATHOLOGY YTXHGWTYSS2078[address] [place] [address], [address]Fftxhq saturation in Blood98.6 %Normal 95.0-99.0The [facility] SystemComment on above:Performed By: #### CR COOX, CR LYTES, LACT, CR GLU, CR BGA, CR ICA ####[facility] PATHOLOGY MMBWTAXZXV5005RacotZdlazw[address] [place] [address], [address]BP ABE2.5 mmol/LNormal-2.0-3.0The [facility] SystemComment on above:Performed By: #### LACT, CR BGA ####[facility] PATHOLOGY CBFYAJNYBH[address] [place] [address], [address]DS XMN012.2 mm HgNormal 35.0-45.0The [facility] SystemComment on above:Performed By: #### LACT, CR BGA ####[facility] PATHOLOGY XZAOHUCDPL4385[address] [place] [address], [address]QQ PHA7.617Exbcei2.350-7.450The [facility] SystemComment on above:Performed By: #### LACT, CR BGA ####[facility] PATHOLOGY XWYNMRHDCV2415[address] [place] [address], [address]GC PO288 mm QjOjtiln76-554Ywl [facility] SystemComment on above: Performed By: #### LACT, CR BGA ####[facility] PATHOLOGY UYTSRSULGS0957[address] [place] [address], [address]NVK4 (CATEGORY)60%NormalThe [facility] Comment on above:Performed By: #### LACT, CR BGA ####[facility] PATHOLOGY MNLNJHLLNB[address] [place] [address], [address]EFE1 (Bld) [Moles/Vol] 27 mmol/VGughmz80-70Cpj [facility] SystemComment on above:Performed By: #### LACT, CR BGA ####S PATHOLOGY CJCGJYONNV2723 [place], [address]WZSMElqnSqbpgrCiy [facility] SystemComment on above:Performed By: #### LACT, CR BGA ####[facility] PATHOLOGY LAZPLDVGHS[address] [place] [address], [address]Huxydt saturation in Blood97.2 %Yskgee56.0-99.0The [facility] SystemComment on above:Performed By: #### LACT, CR BGA ####[facility] PATHOLOGY EOPBZBEYND2455[address] [place] [address], [address]Mfsys Attestationon 47-19-6979Oigpbfgzfwydj Authentication Interface Message TextNoC[facility] SystemCALCIUM, IONIZEDon 56-39-7483DK ICA1.14 mmol/LLow1.15-1.33The [facility] SystemComment on above:Result Comment: This test was developed, and its performance characteristics determined by the Department of Pathology of [facility]. It has not been cleared or approved by the FDA. This test is used for clinical purposes only.Performed By: #### CR GLU, CR BGA, CR COOX, CR ICA, LACT, CR LYTES ####[facility] PATHOLOGY DZTHKBUNUZ0495LgensNssiuy[address] [place] [address], [address]OL ICA1.19 mmol/LNormal1.15-1.33The [facility] SystemComment on above:Result Comment: This test was developed, and its performance characteristics determined by the Department of Pathology of [facility]. It has not been cleared or approved by the FDA. This test is used for clinical purposes only.Performed By: #### CR COOX, CR LYTES, LACT, CR GLU, CR BGA, CR ICA ####[facility] PATHOLOGY BCUUGWIOZU2489GvumnHlxsir[address] [place] [address], [address]ZR-SZXKMNLVmk 36-73-2544PKXXTYTYHKFBGGZNU3.0 %High0.5-1.5The [facility] SystemComment on above:Performed By: #### CR GLU, CR BGA, CR COOX, CR ICA, LACT, CR LYTES ####[facility] PATHOLOGY RINGNXLPXY3336OvwgvOhgccb[address] [place] [address], [address]BB HBMET1.0 %Normal0.0-1.5The [facility] System Comment on above:Performed By: #### CR GLU, CR BGA, CR COOX, CR ICA, LACT, CR LYTES ####[facility] PATHOLOGY FYDCLKZFLT4957EnfhiParigs[address] [place] [address], Hematocrit (Bld) [Volume fraction]27.8 %Low42.0-54.0The [facility] System Comment on above:Performed By: #### CR GLU, CR BGA, CR COOX, CR ICA, LACT, CR LYTES ####[facility] PATHOLOGY FJFEECDXFB3359AdejnVehhyq[address] [place] [address], Hemoglobin (Bld) [Mass/Vol]8.9 g/dLLow13.5-17.5The [facility] SystemComment on above:Performed By: #### CR GLU, CR BGA, CR COOX, CR ICA, LACT, CR LYTES ####[facility] PATHOLOGY YNWCWUKNOY3763IdfckRvwkdn[address] [place] [address], [address]ECMWPYDDSWWRS 95.7 %Kppijn81.0-98.0The [facility] SystemComment on above:Performed By: #### CR GLU, CR BGA, CR COOX, CR ICA, LACT, CR LYTES ####[facility] PATHOLOGY JFLVLXIJUD9566[address] [place] [address], [address]TOWBGGRQRMNVEJXYS1.8 %High0.5-1.5The [facility] SystemComment on above:Performed By: #### CR COOX, CR LYTES, LACT, CR GLU, CR BGA, CR ICA ####[facility] PATHOLOGY JZPDJPTIPQ0270YxkbfAylpjm[address] [place] [address], [address]NN HBMET1.1 %Normal0.0-1.5The [facility] System Comment on above:Performed By: #### CR COOX, CR LYTES, LACT, CR GLU, CR BGA, CR ICA ####[facility] PATHOLOGY JBVUCMIZEH8373TwhpbEpeunk[address] [place] [address], Hematocrit (Bld) [Volume fraction]25.0 %Low42.0-54.0The [facility] Comment on above:Performed By: #### CR COOX, CR LYTES, LACT, CR GLU, CR BGA, CR ICA ####[facility] PATHOLOGY VRGECPNAQT0909GozmgQlhkau[address] [place] [address], Hemoglobin (Bld) [Mass/Vol]8.0 g/dLLow13.5-17.5The [facility] SystemComment on above:Performed By: #### CR COOX, CR LYTES, LACT, CR GLU, CR BGA, CR ICA ####[facility] PATHOLOGY LHYGFHZRGA9013AdixbHzlswv[address] [place] [address], [address]NWGCZJYWEQSNO 95.7 %Pbivgy19.0-98.0The [facility] SystemComment on above:Performed By: #### CR COOX, CR LYTES, LACT, CR GLU, CR BGA, CR ICA ####[facility] PATHOLOGY PYRADAHXQA8725[address] [place] [address], [address]UVKMTCSB BLOOD COUNTon 05-20-2024 Erythrocyte distribution width (RBC) [Ratio]15.6 %High11.5-14.5The [facility] SystemComment on above:Performed By: #### CBC ####[facility] PATHOLOGY PRUCIHXQSB959[address] [place] [address], [address]Cecxrkgidg (Bld) [Volume fraction]30.5 %Low41.0-53.0The [facility] SystemComment on above:Performed By: #### CBC ####[facility] PATHOLOGY KOYUXELMTR5345[address] [place] [address], Hemoglobin (Bld) [Mass/Vol]10.5 g/dLLow13.9-16.3The [facility] SystemComment on above:Performed By: #### CBC ####[facility] PATHOLOGY YJZWYTVIZT589[address] [place] [address], [address]TMI (RBC) [Entitic mass]31.5 epIihqwk84.0-34.0The [facility] SystemComment on above:Performed By: #### CBC ####[facility] PATHOLOGY SJLHMBIOHU69101[address] [place] [address], [address]SEXP (RBC) [Mass/Vol] 34.4 g/fNLadcdx34.0-35.9The [facility] SystemComment on above:Performed By: #### CBC ####[facility] PATHOLOGY BRFKTUNJFZ215[address] [place] [address], [address]SXT (RBC) [Entitic vol]92 nLOmbezm75-796Hxm [facility] SystemComment on above:Performed By: #### CBC ####[facility] PATHOLOGY IGKCFXOKYD432[address] [place] [address], [address]Ltpilyil mean volume (Bld) [Entitic vol]6.4 fLLow 7.5-11.2The [facility] SystemComment on above:Performed By: #### CBC ####[facility] PATHOLOGY PJUSDEKVCX2706[address] [place] [address], [address]Plntfmgxq (Bld) [#/Vol]183 10*3/rPLoufhy301-416Aqz [facility] SystemComment on above: Performed By: #### CBC ####[facility] PATHOLOGY ZSPUKOVAIH9284[address] [place] [address], [address]SSO (Bld) [#/Vol]3.33 10*6/uLLow4.50-5.90The [facility] SystemComment on above:Performed By: #### CBC ####[facility] PATHOLOGY GCAKCMQWFR0646[address] [place] [address], [address]KEP (Bld) [#/Vol]8.5 10*3/uLNormal4.5-11.5The [facility] SystemComment on above:Performed By: #### CBC ####[facility] PATHOLOGY LXGLJJOAZS9815[address] [place] [address], Erythrocyte distribution width (RBC) [Ratio]14.7 %High11.5-14.5The [facility] SystemComment on above:Performed By: #### CBC ####[facility] PATHOLOGY MHEJFBKSAD1416[address] [place] [address], [address]Vpzppppprt (Bld) [Volume fraction]23.7 %Low41.0-53.0The [facility] SystemComment on above:Performed By: #### CBC ####[facility] PATHOLOGY EGLNWKBUDL2906 [place], [place], Hemoglobin (Bld) [Mass/Vol]7.9 g/dLLow13.9-16.3The [facility] SystemComment on above:Performed By: #### CBC ####[facility] PATHOLOGY XJUUESRGJO87[address] [place] [address], [address]AUU (RBC) [Entitic mass]32.6 biCgevhs79.0-34.0The [facility] SystemComment on above:Performed By: #### CBC ####[facility] PATHOLOGY MXFSYYXFUU7242[address] [place] [address], [address]UUHT (RBC) [Mass/Vol] 33.5 g/uQMafpdm51.0-35.9The [facility] SystemComment on above:Performed By: #### CBC ####[facility] PATHOLOGY TTDLRKNGPU443[address] [place] [address], [address]DOQ (RBC) [Entitic vol]97 iFQnczyq66-088Dll [facility] SystemComment on above:Performed By: #### CBC ####[facility] PATHOLOGY AJCOAMDWVL3122[address] [place] [address], [address]Qnbwvgju mean volume (Bld) [Entitic vol]6.5 fLLow 7.5-11.2The [facility] SystemComment on above:Performed By: #### CBC ####[facility] PATHOLOGY PZIKDRXSQF669[address] [place] [address], [address]Dlipmwfdw (Bld) [#/Vol]177 10*3/jROmhchc074-926Ale [facility] SystemComment on above: Performed By: #### CBC ####[facility] PATHOLOGY IXYQHCAPDE599[address] [place] [address], [address]MDK (Bld) [#/Vol]2.43 10*6/uLLow4.50-5.90The [facility] SystemComment on above:Performed By: #### CBC ####[facility] PATHOLOGY MERPWUCSRE9758[address] [place] [address], [address]ETD (Bld) [#/Vol]6.9 10*3/uLNormal4.5-11.5The [facility] SystemComment on above:Performed By: #### CBC ####[facility] PATHOLOGY GVHNVPRTRP[address] [place] [address], Erythrocyte distribution width (RBC) [Ratio]13.6 %Suvkoj42.5-14.5The [facility] SystemComment on above:Performed By: #### CBC ####[facility] PATHOLOGY MTFAIVAUZT1602[address] [place] [address], [address]Jaikyqczit (Bld) [Volume fraction]18.3 %Critically low41.0-53.0The [facility] SystemComment on above:Performed By: #### CBC ####[facility] PATHOLOGY ZPBKPQFNTB6118[address] [place] [address], [address]Nhjnvxgxpl (Bld) [Mass/Vol]6.1 g/dLCritically low13.9-16.3The [facility] SystemComment on above:Performed By: #### CBC ####[facility] PATHOLOGY GYUMCZRYUC9[address] [place] [address], [address]KMR (RBC) [Entitic mass]33.0 xrVbgdlw17.0-34.0The [facility] SystemComment on above:Performed By: #### CBC ####[facility] PATHOLOGY RHKBNMGECP4859[address] [place] [address], [address]YPXK (RBC) [Mass/Vol]33.3 g/vOJyfqtu07.0-35.9The [facility] Comment on above:Performed By: #### CBC ####[facility] PATHOLOGY CEIRVSCRJJ[address] [place] [address], [address]XMH (RBC) [Entitic vol]99 fLNormal 80-100The [facility] SystemComment on above:Performed By: #### CBC ####[facility] PATHOLOGY HQXJWJOXTD6624[address] [place] [address], [address]Wgnuirtd mean volume (Bld) [Entitic vol]6.9 fLLow7.5-11.2The [facility] SystemComment on above:Performed By: #### CBC ####[facility] PATHOLOGY FKSKUGOHQA0726[address] [place] [address], [address]Hccsrtwuw (Bld) [#/Vol]170 10*3/qVWsxjhj444-696Zba [facility] SystemComment on above:Performed By: #### CBC ####[facility] PATHOLOGY ATJMSELDRV2554[address] [place] [address], [address]BEE (Bld) [#/Vol]1.85 10*6/uLLow4.50-5.90The [facility] SystemComment on above:Performed By: #### CBC ####[facility] PATHOLOGY JOHAMGKPYN5167[address] [place] [address], [address]VOT (Bld) [#/Vol]5.6 10*3/uLNormal4.5-11.5The [facility] SystemComment on above: Performed By: #### CBC ####[facility] PATHOLOGY YWNGKTGFAH4723[address] [place] [address], [address]NCMXQUIF KINASEon 28-45-4219IX [Catalytic activity/Vol]318 U/TNoql65-431Xeb [facility] SystemComment on above:Performed By: #### CK, MG, PHOS, TRIG, CH8 ####[facility] PATHOLOGY WJVYUSALLC2567[address] [place] [address], [address]DNPUMYZDWZVKos 46-67-7214Gwyzciqf [Moles/Vol]98 mmol/JYpwwsv20-441Mkr [facility] SystemComment on above:Performed By: #### CR GLU, CR BGA, CR COOX, CR ICA, LACT, CR LYTES ####[facility] PATH[facility]Y [id number] [place] [address], [phone] [Moles/Vol]4.2 mmol/LNormal 3.5-5.0The [facility] CenterHealth SystemComment on above:Performed By: #### CR GLU, CR BGA, CR COOX, CR ICA, LACT, CR LYTES ####[facility] PATHOLOGY [id number] [place] [address], [phone] [Moles/Vol]131 mmol/SLzs136-307Cia [facility] CenterHealth SystemComment on above:Performed By: #### CR GLU, CR BGA, CR COOX, CR ICA, LACT, CR LYTES ####[facility] PATHOLOGY [id number] [place] [address], [phone] [Moles/Vol]96 mmol/CGyy14-848Lip [facility] SystemComment on above:Performed By: #### CR COOX, CR LYTES, LACT, CR GLU, CR BGA, CR ICA ####[facility] PATHOLOGY PLOONXSEZP7313IescjUmezdc[address] [place] [address], [address]Rfmtddzit [Moles/Vol]4.2 mmol/LNormal3.5-5.0The [facility] SystemComment on above:Performed By: #### CR COOX, CR LYTES, LACT, CR GLU, CR BGA, CR ICA ####[facility] PATHOLOGY NFYXAUKLPV9399UbzlcAosmwm[address] [place] [address], [address]Dcmrts [Moles/Vol]132 mmol/LNvw871-303Mle [facility] SystemComment on above:Performed By: #### CR COOX, CR LYTES, LACT, CR GLU, CR BGA, CR ICA ####[facility] PATHOLOGY ICXDZJBXJR2336BjokaLrxqzb[address] [place] [address], [address]DGGde 03-23-8784EJ ORDER ITEMProduct status info to followNoGlenbeigh Hospitale [facility] SystemComment on above:Performed By: #### FFO ####[facility] PATHOLOGY CTSHXANKPV[address]24[address] [place] [address], GLUCOSE, WHOLE BLOODon 68-16-1450VU IXR734 mg/kUPacg10-570Ler [facility] System Comment on above:Performed By: #### CR GLU, CR BGA, CR COOX, CR ICA, LACT, CR LYTES ####[facility] PATHOLOGY EMOSEFDIRP6221HsittMwecip[address] [place] [address], CR XRJ094 mg/zLVken67-082Wjl [facility] SystemComment on above:Performed By: #### CR COOX, CR LYTES, LACT, CR GLU, CR BGA, CR ICA ####[facility] PATHOLOGY KEKGHYNKQK6377MmhypXohpvu[address] [place] [address], [address]CRKUVU ACIDon 05-20-2024 CR LACT1.1 mmol/LNormal0.5-1.6The [facility] SystemComment on above:Performed By: #### CR GLU, CR BGA, CR COOX, CR ICA, LACT, CR LYTES ####[facility] PATHOLOGY KDAUZQZNCZ7468GyireGklhcs[address] [place] [address], [address]OU LACT0.9 mmol/LNormal 0.5-1.6The [facility] SystemComment on above:Performed By: #### CR COOX, CR LYTES, LACT, CR GLU, CR BGA, CR ICA ####[facility] PATHOLOGY HSOERIDRXV6328YhtgaTjpfzo[address] [place] [address], [address]EM LACT0.8 mmol/LNormal0.5-1.6The [facility] SystemComment on above:Performed By: #### LACT, CR BGA ####[facility] PATHOLOGY BWQZOBYUBK[address] [place] [address], [address]SGNJLTSCQrv 05-20-2024 Magnesium [Mass/Vol]2.0 mg/dLNormal1.9-2.7The [facility] SystemComment on above:Performed By: #### CK, MG, PHOS, TRIG, CH8 ####[facility] PATHOLOGY DOKHGJULAU7608[address] [place] [address], [address]CC Noteon 05-20-2024 Mechanic Chief Authentication Interface Message TextNoCleveland Clinic [facility] System OR Nursingon 45-88-1822Cjnltzjyfzfer Authentication Interface Message TextReport called to 5w RN 1424[facility] CenterPARTIAL THROMBOPLASTIN TIMEon 44-99-6464gRLL Coag (Bld) [Time]28 yYzwiet93-19Eaz [facility] SystemComment on above:Performed By: #### APTT, PT ####[facility] PATHOLOGY WHBZFCSFCK5935[address] [place] [address], [address]NECMDVFQKDrw 67-88-6213Oqjmvqtso [Mass/Vol]2.2 mg/dLLow2.5-5.0The [facility] SystemComment on above:Performed By: #### CK, MG, PHOS, TRIG, CH8 ####S PATHOLOGY RHDHCEGBFX8906[address] [place] [address], [address]SMVQXQ STATUSon 41-51-0217JNCZG PRODUCT [id number] [facility] SystemComment on above:Performed By: #### FFU ####S PATHOLOGY SHYBGLXWXP[address] [place] [address], [address]DLDEG PRODUCT CODE [id number] Sinai Hospital SystemComment on above:Performed By: #### FFU ####S PATHOLOGY SDIFWYHCXH7926[address] [place] [address], [address]OKYCY PRODUCT [id number] [facility] SystemComment on above:Performed By: #### FFU ####S PATHOLOGY PFJFNWJEFN7888[address] [place] [address], [address]NURYE PRODUCT DESCRIPTIONFFPNCrystal Clinic Orthopedic Center SystemComment on above:Performed By: #### FFU ####S PATHOLOGY KCDBXHCSVX9068[address] [place] [address], [address]HYLHD PRODUCT STATUSReturned to [facility] BnkNCrystal Clinic Orthopedic Center SystemComment on above:Performed By: #### FFU ####S PATHOLOGY GIFXNNBVNG7526[address] [place] [address], [address]XXBDF PRODUCT STATUS Released to [facility] SystemComment on above:Performed By: #### FFU ####S PATHOLOGY NCTOAVFCBN6082[address] [place] [address], BLOOD PRODUCT UNIT [id number] [facility] SystemComment on above:Performed By: #### FFU ####S PATHOLOGY DKSUDMYKAS0211[address] [place] [address], [address]FTLQG PRODUCT UNIT [id number] [facility] SystemComment on above:Performed By: #### FFU ####S PATHOLOGY QJCXFEBDAK3942[address] [place] [address], [address]CLDCR PRODUCT UNIT INFO [id number] [facility] SystemComment on above:Performed By: #### FFU ####S PATHOLOGY FBJUQFGJMY0901[address] [place] [address], BLOOD PRODUCT UNIT [id number] [facility] SystemComment on above:Performed By: #### FFU ####S PATHOLOGY ZSOXKHGBHT6099[address] [place] [address], [address]ORFMM PRODUCT UNIT [id number] Clinic Mercy Hospital SystemComment on above:Result Comment: AB PosPerformed By: #### FFU ####[facility] PATHOLOGY NFUVKQPLAK5922[address] [place] [address], [address]HBPLB PRODUCT UNIT [id number] [facility] SystemComment on above:Result Comment: A Pos Performed By: #### FFU ####[facility] PATHOLOGY VMWXTMIPCV[address] [place] [address], [address]PTTBXXITWFQ TIME AND INRon 12-52-8236IVM Coag (PPP) [Relative time]0.95 {INR}Normal0.90-1.10The [facility] SystemComment on above:Performed By: #### APTT, PT ####[facility] PATHOLOGY CIMTBYVTCJ1209[address] [place] [address], [address]XY Coag (PPP) [Time]10.6 sNormal9.7-12.9The [facility] SystemComment on above:Performed By: #### APTT, PT ####[facility] PATHOLOGY IONKNQZPYK7167[address] [place] [address], [address]Btzzxxqhiheu 22-62-4523Esbgtxmyweept Authentication Interface Message TextInvalid Interpretation CodeThe [facility] SystemProgress Noteson 05-20-2024 Mechanic Chief Authentication Interface Message TextNoC[facility] Mechanic Chief Authentication Interface Message TextNoC[facility] RED BLOOD CELL COMPONENTon 83-10-9304MC ORDER ITEMProduct status info to follow NormalMercy Health Perrysburg Hospital SystemComment on above:Performed By: #### RBO ####S PATHOLOGY GWJCJKQSAX[address] [place] [address], [address]IN ORDER ITEM Product status info to followNormCleveland Clinic Hillcrest [facility] SystemComment on above: Performed By: #### RBO ####S PATHOLOGY DHRBITXTMX7963[address] [place] [address], [address]ZJY BLOOD CELL UNIT STATUSon 65-48-1515KMMFT PRODUCT [id number] [facility] SystemComment on above:Performed By: #### RBU ####S PATHOLOGY AUJPELDWFB2108[address] [place] [address], [address]MAQKI PRODUCT [id number] [facility] SystemComment on above:Performed By: #### RBU ####[facility] PATHOLOGY UGWOZYYXXG455[address] [place] [address], [address]ZWJAZ PRODUCT DESCRIPTIONRed Blood CellsMount Sinai Hospital SystemComment on above:Performed By: #### RBU ####[facility] PATHOLOGY AGAYPWWMCT728[address] [place] [address], [address]SMVRD PRODUCT STATUS TransfusedMount Sinai Hospital SystemComment on above:Performed By: #### RBU ####[facility] PATHOLOGY CBWFGJDVQL2022[address] [place] [address], [address]KYMAX PRODUCT STATUSReturned to Bld BnkNCrystal Clinic Orthopedic Center SystemComment on above: Performed By: #### RBU ####[facility] PATHOLOGY QKURYFLYFZ0797[address] [place] [address], [address]BZRIV PRODUCT UNIT [id number] [facility] SystemComment on above:Performed By: #### RBU ####[facility] PATHOLOGY NWYIQTXUFV[address] [place] [address], [address]VKODX PRODUCT UNIT INFO [id number] [facility] SystemComment on above:Performed By: #### RBU ####S PATHOLOGY WZGULOBJPX818618 [place] [address], BLOOD PRODUCT UNIT [id number] [facility] SystemComment on above:Performed By: #### RBU ####S PATHOLOGY DWONJUHQLI087[address] [place] [address], [address]IKYII PRODUCT UNIT [id number] [facility] SystemComment on above:Performed By: #### RBU ####[facility] PATHOLOGY QUSXRRGFOC7799[address] [place] [address], [address]AUVES PRODUCT UNIT TYPE 6200[facility] SystemComment on above:Result Comment: A PosPerformed By: #### RBU ####S PATHOLOGY GFTCCAXTDK0075[address] [place] [address], [address]VEBGWYXQGH INTERPRETATIONCompatible (E)NormalMercy Health Perrysburg Hospital System Comment on above:Performed By: #### RBU ####S PATHOLOGY YAJPFEZXJP842[address] [place] [address], [address]VIJBC PRODUCT [id number] [facility] SystemComment on above:Performed By: #### RBU ####S PATHOLOGY HDQROQDTWN5477[address] [place] [address], [address]YWDXP PRODUCT DESCRIPTIONRed Blood CellsMount Sinai Hospital SystemComment on above:Performed By: #### RBU ####S PATHOLOGY TIXUDZZBEQ845618 [place] [address], [address]QBCAR PRODUCT STATUSTransfusedNormalMercy Health Perrysburg Hospital SystemComment on above:Performed By: #### RBU ####[facility] PATHOLOGY CEGCDWAUVB774318 [place] [address], [address]LBGKU PRODUCT UNIT [id number] [facility] SystemComment on above:Performed By: #### RBU ####[facility] PATHOLOGY UCVGCWMTCB8078[address] [place] [address], [address]MUAEL PRODUCT UNIT TYPE 6200NoCleveland Clinic Mercy Hospital SystemComment on above:Result Comment: A PosPerformed By: #### RBU ####S PATHOLOGY MHZISJBHHQ213[address] [place] [address], [address]AYNJBRQWJM INTERPRETATIONCompatible (E)[facility] Comment on above:Performed By: #### RBU ####[facility] PATHOLOGY CMEBJFTSAL6634[address] [place] [address], [address]SZFIOZSDXPZ CULTURE, MISCon 05-20-2024 MICMount Sinai Hospital SystemComment on above:Order Comment: THIS IS A PRELIMINARY REPORT. Final results will follow. Results of the preliminary report may be modified as additional information becomes available.Performed By: #### C RESP ####[facility] Pevktxweu[address] [place], [place] [address] RESPIRATORY CULTURE, MISCNormalThe [facility] SystemComment on above:Order Comment: THIS IS A PRELIMINARY REPORT. Final results will follow. Results of the preliminary report may be modified as additional information becomes available. Performed By: #### C RESP ####[facility] Ngbwcnngi[address] [place], [place]Student Noteon 63-68-0795Lspyjvryttpiy Authentication Interface Message TextNoCleveland Clinic Mercy Hospital SystemTRIGLYCERIDESon 80-78-9791Dxoffznwnwkz [Mass/Vol]84 mg/dLNormal<150The [facility] SystemComment on above:Result Comment: Normal: < 150 mg/dLBorderline High: 150-199 mg/dLHigh: 200-499 mg/dLVery High: > = 500 mg/dLPerformed By: #### CK, MG, PHOS, TRIG, CH8 ####[facility] YLOMLZSPGL5299[address] [place] [address], [address]UQHY AND SCREENon 23-44-1013XVZ and Rh group Nom (Bld)Blood group A Rh(D) positive NormalThe [facility] SystemComment on above:Performed By: #### TS ####[facility] WSPAXZJHHT7630 [place], [address]WXEY INT NegativeNormCleveland Clinic Hillcrest Hospital SystemComment on above:Performed By: #### TS ####[facility] PATH[facility]Y OFGOAOSHSP8521 [place], [address]VL CHEST AP OR PA 1 VIEWon 25-19-6507OQ CHEST AP OR PA 1 VIEWNormCleveland Clinic Hillcrest Hospital SystemXR CHEST AP OR PA 1 VIEWNormCleveland Clinic Hillcrest Hospital SystemXR Chest Single viewon 47-51-1954ENKXTOQSWCD: XR CHEST AP OR PA 1 VIEW [...] pulmonary opacities are again present, likely atelectasis. RADIOLOGYNik Nguyen MD - 05/20/2024 EXAMINATION: XR CHEST AP OR PA 1 VIEW 05/20/2024 04:55 PM CLINICAL HISTORY: Chest surgery, postoperative; Chest tube assessment ASSOCIATED DIAGNOSIS: Chest surgery, postoperative Chest tube assessment ORDERING PROVIDER: KATIE DIAZ NOTE: COMPARISON: XR CHEST AP OR [...] pulmonary opacities are again present, likely atelectasis. MetroGerman HospitalRadiology Study observation (narrative)[facility]HealthXR Chest Single viewOrdered By: Nik Nguyen on 93-75-5975PlqayOsazjf Work Phone: BASIC METABOLIC PANELon 67-56-8437Mmeox gap [Moles/Vol]15 mmol/QXznbyh84-72Bbu [facility] CenterHealth SystemComment on above:Performed By: #### CH8 ####[facility] PATHOLOGY UHKRATOJPC8991 [place], [address]Eqjtxpo [Mass/Vol]8.7 mg/dLNormal8.6-10.3The [facility] CenterroGerman Hospital SystemComment on above:Performed By: #### CH8 ####[facility] PATHOLOGY AZPKSCXAVG2829 [place], [address]Zvpfqbmm [Moles/Vol]95 mmol/LEam23-870Gox [facility] SystemComment on above:Performed By: #### CH8 ####[facility] PATHOLOGY TXKXDKSDKC4332 [place], [address]VX8 [Moles/Vol]23 mmol/YYxwrzf05-97Qku [facility] CenterroGerman [facility] SystemComment on above:Performed By: #### CH8 ####S PATHOLOGY VNNFQQQZAI9043 [place], Creatinine [Mass/Vol]1.23 mg/dLNormal0.70-1.30The [facility] SystemComment on above:Performed By: #### CH8 ####[facility] PATHOLOGY GCGGJRBSHQ9515 [place], [address]QREKBTHAU GFR (CKD-EPI)59 mL/min/1.73sqmLow>=60The [facility] SystemComment on above:Result Comment: 2020 CKD EPI Equation using Creatinine without RaceComment: Estimated glomerular filtration rate (eGFR) is calculated without a race coefficient. Values should be interpreted in the co ntext of the patient's full clinical presentation.Reference:1. Rishi Jose, Jorge M, Nic SILVA, et al.. A Unifying Approach for GFR Estimation: Recommendations of the NKF-ASN Task Force on Reassessing the Inclusion of Race in Diagnosing Kidney Disease. [place] Journal of Kidney Diseases 202;79(2):268-88.e1.2. N Engl J Med 2020 Vol. 385 Issue 19 Pages 4210-7623Performed By: #### CH8 ####[facility] QKOAFIMOGA8934 [place], [address]Czhgcwl [Mass/Vol]178 mg/bFWufg87-841Zsf [facility] Centerro[facility] SystemComment on above:Performed By: #### CH8 ####[facility] JSQMGYYXYP5947 [place], [address]Cbhedkeeh [Moles/Vol]5.6 mmol/LHigh3.5-5.0The [facility] Centerro[facility] System Comment on above:Result Comment: Hemolysis presentPerformed By: #### CH8 ####S PATHOLOGY SQIQPPESBI9660 [place], [address]Yttkid [Moles/Vol]127 mmol/OWfm207-650Eif [facility] Centerro[facility] SystemComment on above:Performed By: #### CH8 ####S PATHOLOGY TJOIYWYUNH0023 [place], [address]Ccxb nitrogen [Mass/Vol]40 mg/dLHigh7-25The [facility] CenterroHealth SystemComment on above:Performed By: #### CH8 ####S PATHOLOGY EOLORBEFQM9328 [place], [address]Hczsp gap [Moles/Vol]12 mmol/TJgcoaz69-81Ulf [facility] Centerro[facility] SystemComment on above:Performed By: #### MGCHI, CH8 ####[facility] QEKZKEYRLN4145 [place], [address]Fufvzlj [Mass/Vol]8.5 mg/dLLow8.6-10.3The [facility] SystemComment on above:Performed By: #### MGCHI, CH8 ####[facility] CUWVTOWHYT9944 [place], [address]Veewawrp [Moles/Vol]98 mmol/HCivrwe05-686Xmw [facility] Centerro[facility] SystemComment on above:Performed By: #### CHI PRADO CH8 ####[facility] MMONBRDJZW4708 [place], [address]BE1 [Moles/Vol]27 mmol/IZtqnnb10-35Utg [facility] CenterroGerman [facility] SystemComment on above:Performed By: #### CHI PRADO CH8 ####[facility] XFMWPGNWBI2335 [place], [address]Zcjosrbmwg [Mass/Vol]1.67 mg/dLHigh0.70-1.30The [facility] SystemComment on above:Performed By: #### CHI PRADO CH8 ####S PATHOLOGY VLMSRBFCXQ3644 [place], [address]YWHDOSXKX GFR (CKD-EPI)41 mL/min/1.73sqmLow>=60The [facility] SystemComment on above:Result Comment: 2020 CKD EPI Equation using Creatinine without RaceComment: Estimated glomerular filtration rate (eGFR) is calculated without a race coefficient. Values should be interpreted in the context of the patient's full clinical presentation.Reference:1. Rishi C, Jorge M, Nic DC, et al.. A Unifying Approach for GFR Estimation: Recommendations of the NKF-ASN Task Force on Reassessing the Inclusion of Race in Diagnosing Kidney Disease. [place] Journal of Kidney Diseases 2021;79(2):268-88.e1.2. N Engl J Med 2020 Vol. 385 Issue 19 Pages 6629-0268Performed By: #### CHI PRADO CH8 ####MHAlfonzo PATHOLOGY JOLPUWVQOF2406 [place], [address]Epcedke [Mass/Vol]117 mg/jXKtov84-443 The [facility] SystemComment on above:Performed By: #### CHI PRADO CH8 ####[facility] PATHOLOGY EWOQVMAGQY9102 [place], [address]Vzgqljlvy [Moles/Vol]5.6 mmol/LHigh3.5-5.0The [facility] SystemComment on above:Performed By: #### CHI PRADO CH8 ####[facility] MKQLPLXTWH1669 [place], [address]Ympahq [Moles/Vol]131 mmol/LArq193-233Yyw [facility]ro[facility] SystemComment on above:Performed By: #### CHI PRADO, LLOYD8 ####[facility] PATHOLOGY GULMGPZKYZ7887 [place], [address]Vltw nitrogen [Mass/Vol]47 mg/dLHigh7-25The [facility] Centerro[facility] SystemComment on above:Performed By: #### CHI PRADO CH8 ####[facility] PATHOLOGY JGURVFMWAP58[address] [place] [address], [address]SQUQU GAS, ARTERIALon 12-62-8451JV ABE1.2 mmol/LNormal-2.0-3.0The [facility] Centerro[facility] SystemComment on above:Performed By: #### CR BGA ####[facility] PATHOLOGY AKRIVNHOCK7368[address] [place] [address], [address]TG XSK910.3 mm HgNormal 35.0-45.0The [facility] Centerro[facility] SystemComment on above:Performed By: #### CR BGA ####[facility] PATHOLOGY DFRGOTEKGQ0027[address] [place] [address], [address]SG PHA7.097Hayoum7.350-7.450The [facility] CenterroHealth SystemComment on above:Performed By: #### CR BGA ####[facility] PATHOLOGY MDBCMUGQXG4356[address] [place] [address], [address]HD PO294 mm JkMfowbr15-755Hxa [facility] Centerro[facility] SystemComment on above: Performed By: #### CR BGA ####[facility] PATHOLOGY MBAEFJTAZL2198[address] [place] [address], [address]XFX7 (CATEGORY)60%NormalThe [facility] Centerro[facility] System Comment on above:Performed By: #### CR BGA ####[facility] PATHOLOGY RJFAXYZORL[address] [place] [address], [address]HJL1 (Bld) [Moles/Vol]26 mmol/LNormal 21-28The [facility] Centerro[facility] SystemComment on above:Performed By: #### CR BGA ####[facility] PATHOLOGY OSMCXCWGHP6826[address] [place] [address], [address]PQHZZnuv NormalThe [facility] SystemComment on above:Result Comment: 450 x 24 +5 Performed By: #### CR BGA ####[facility] PATHOLOGY GYKTAZHDPQ3889[address] [place] [address], [address]Kfuuns saturation in Blood97.3 %Owcqpj13.0-99.0The [facility] SystemComment on above:Performed By: #### CR BGA ####[facility] PATHOLOGY RKXJTKFBZP4279[address] [place] [address], [address]OR ABE0.0 mmol/LNormal -2.0-3.0The [facility] Center[facility] SystemComment on above:Performed By: #### CR BGA ####[facility] PATHOLOGY QRPXDOKVIK4922[address] [place] [address], [address]DQ ZKB472.9 mm PtUzmn02.0-45.0The [facility] SystemComment on above:Performed By: #### CR BGA ####[facility] PATHOLOGY XACQNTICBY7299[address] [place] [address], CR PHA7.871Agz8.350-7.450The [facility] SystemComment on above:Performed By: #### CR BGA ####[facility] PATHOLOGY JNCPRQTOPA2135[address] [place] [address], [address]SA XJ0139 mm SkUslhdi46-867Sgj [facility] SystemComment on above: Performed By: #### CR BGA ####[facility] PATHOLOGY SOOQHYVFUK8607[address] [place] [address], [address]QPH9 (CATEGORY)50%NormalThe [facility] System Comment on above:Result Comment: 50LPerformed By: #### CR BGA ####[facility] PATHOLOGY WEISHUVNHM419[address] [place] [address], [address]FWV6 (Bld) [Moles/Vol] 27 mmol/RVmulxf30-69Cov [facility] SystemComment on above:Performed By: #### CR BGA ####[facility] PATHOLOGY XXFOCVEEGB9385[address] [place] [address], MODENasal CanulaNormalThe [facility] SystemComment on above:Performed By: #### CR BGA ####[facility] PATHOLOGY BFVXYNMEKI2563[address] [place] [address], [address]Hihoez saturation in Blood96.4 %Mksahx92.0-99.0The [facility] System Comment on above:Performed By: #### CR BGA ####[facility] PATHOLOGY NJERLBQVQS5139[address] [place] [address], [address]MXFBYWJI BLOOD COUNTon 05-19-2024 Erythrocyte distribution width (RBC) [Ratio]13.8 %Eqkjbd07.5-14.5The [facility] CenterHealth SystemComment on above:Performed By: #### CBC ####[facility] PATHOLOGY XRLOCNYJEJ2019[address] [place] [address], [address]Zdwjrtfopp (Bld) [Volume fraction]23.1 %Low41.0-53.0The [facility] CenterHealth SystemComment on above:Performed By: #### CBC ####[facility] PATHOLOGY JDREYLQAFN6144[address] [place] [address], Hemoglobin (Bld) [Mass/Vol]7.8 g/dLLow13.9-16.3The [facility] CenterHealth SystemComment on above:Performed By: #### CBC ####[facility] PATHOLOGY PSEHTKVJHM7658[address] [place] [address], [address]GKP (RBC) [Entitic mass]33.4 weCkwkwy86.0-34.0The [facility] CenterHealth SystemComment on above:Performed By: #### CBC ####[facility] PATHOLOGY RLFCGYTXSL1849[address] [place] [address], [address]XPIK (RBC) [Mass/Vol] 33.6 g/fWKdyjsw91.0-35.9The [facility] CenterHealth SystemComment on above:Performed By: #### CBC ####[facility] PATHOLOGY JURREJPETK6939[address] [place] [address], [address]TJP (RBC) [Entitic vol]99 oFDqxuiv65-708Bfc [facility] CenterHealth SystemComment on above:Performed By: #### CBC ####[facility] PATHOLOGY ZZZIPLUYWB3372[address] [place] [address], [address]Nuugjnsf mean volume (Bld) [Entitic vol]7.2 fLLow 7.5-11.2The [facility] Centerro[facility] SystemComment on above:Performed By: #### CBC ####[facility] PATHOLOGY VFOACILVFM6009 [place], [address]Wmhxjdyzj (Bld) [#/Vol]161 10*3/tBAgwpfg363-643Oye [facility] Centerro[facility] SystemComment on above: Performed By: #### CBC ####[facility] PATHOLOGY ZERMOXGWYY59[address] [place] [address], [address]CGL (Bld) [#/Vol]2.33 10*6/uLLow4.50-5.90The [facility] Centerro[facility] SystemComment on above:Performed By: #### CBC ####[facility] PATHOLOGY BRLZIOWEXC[address] [place] [address], [address]CWI (Bld) [#/Vol]8.4 10*3/uLNormal4.5-11.5The [facility] CenterroHealth SystemComment on above:Performed By: #### CBC ####[facility] PATHOLOGY CYMHVOINBI[address] [place] [address], Erythrocyte distribution width (RBC) [Ratio]13.6 %Vttvyy14.5-14.5The [facility] CenterHealth SystemComment on above:Performed By: #### CBC ####[facility] PATHOLOGY IJTNRYELEC[address] [place] [address], [address]Ilpcxyreat (Bld) [Volume fraction]22.3 %Low41.0-53.0The [facility] CenterHealth SystemComment on above:Performed By: #### CBC ####[facility] PATHOLOGY AHBWSGZOBW[address] [place] [address], Hemoglobin (Bld) [Mass/Vol]7.4 g/dLLow13.9-16.3The [facility] CenterroHealth SystemComment on above:Performed By: #### CBC ####[facility] PATHOLOGY UKPQKQNMUT[address]32[address] [place] [address], [address]OQR (RBC) [Entitic mass]33.0 jqVcdfzt57.0-34.0The [facility] CenterHealth SystemComment on above:Performed By: #### CBC ####[facility] PATHOLOGY CCSFDRDOHR[address] [place] [address], [address]EXWV (RBC) [Mass/Vol] 33.1 g/kAPxvyec69.0-35.9The [facility] SystemComment on above:Performed By: #### CBC ####[facility] PATHOLOGY WDFRHILMBX[address] [place] [address], [address]WOT (RBC) [Entitic vol]100 zBXgcric65-658Bqj [facility] SystemComment on above:Performed By: #### CBC ####[facility] PATHOLOGY OTPONCDPTU[address] [place] [address], [address]Vlyeleif mean volume (Bld) [Entitic vol]7.2 fLLow 7.5-11.2The [facility] SystemComment on above:Performed By: #### CBC ####[facility] PATHOLOGY SAQUNTIDFH[address] [place] [address], [address]Umgielcrb (Bld) [#/Vol]157 10*3/oBTmdvvd780-503Ndk [facility] CenterroHealth SystemComment on above: Performed By: #### CBC ####[facility] PATHOLOGY OMVAWQSCZS[address]13[address] [place] [address], [address]FDR (Bld) [#/Vol]2.24 10*6/uLLow4.50-5.90The [facility] CenterroHealth SystemComment on above:Performed By: #### CBC ####[facility] PATHOLOGY THNLHDYADB[address] [place] [address], [address]FWV (Bld) [#/Vol]5.7 10*3/uLNormal4.5-11.5The [facility] CenterroHealth SystemComment on above:Performed By: #### CBC ####[facility] PATHOLOGY BWNFNEHCPI[address] [place] [address], CT CHEST W/O CONTRASTon 76-93-7393KG CHEST W/O CONTRASTNormalThe [facility] SystemCT Chest WO contrastOrdered By: Aramis Lamar on 52-34-4698BF GOI658.1 (mGy.cm)[facility] Work Phone: cT SeriesTopogram,CHEST WOMetroHealth Work Phone: cTDI VOL0.03 (mGy),7.42 (mGy)[facility] Work Phone: [employer] Body Dosimetry Phantom,[facility] Body Dosimetry PhantomMetroHealth Work Phone: [facility] Work Phone: cT Chest WO contraston 13-49-8220ZTKONMMAJVP: CT CHEST W/O CONTRAST 05/19/2024 09:45 AM [...] the right lateral chest wall. MACRO: None Aramis Estrada MD - 05/19/2024 EXAMINATION: CT CHEST W/O CONTRAST [...] the right lateral chest wall. MACRO: None [facility]HealthRadiology Study observation (narrative)[facility], IncCare Plan Noteon 71-63-9285Uwjjjfhtjndih Authentication Interface Message TextNormMorrow County Hospitale [facility] SystemConsultson 95-38-0881Lcvlpyrywdwcj Authentication Interface Message TextNormMorrow County Hospitale [facility] SystemMAGNESIUMon 51-59-7169Vykkjdqdb [Mass/Vol]2.5 mg/dLNormal1.9-2.7The [facility] SystemComment on above:Performed By: #### CHI PRADO CH8 ####[facility] PATH[facility]Y FFBZPPOVLS3445 [place], [address]CMBW SCREENon 31-73-4359YKFI DNA JASMINA+probe Ql (Unsp spec)CMR: No methicillin resistant Staphylococcus aureus isolated.NormalNo methicillin resistant Staphylococcus aureus isolated.The [facility] SystemComment on above: Performed By: #### CMR ####[facility] Rbkctgroi[address] [place], [place]PHOSPHORUSon 10-04-2874Yetykznfn [Mass/Vol]3.2 mg/dLNormal2.5-5.0 The [facility] SystemComment on above:Performed By: #### CHI PRADO CH8 ####[facility] PATHOLOGY WKRJYTAFSJ6496 [place], [address]Twtj- Procedure Noteon 80-66-9360Fahyokzvjvypc Authentication Interface Message Text NormalThe [facility] SystemProcedureson 98-00-6641Bonqkftqbywdi Authentication Interface Message TextNormMorrow County Hospitale [facility] SystemTranscription Authentication Interface Message TextNorm[facility] SystemProgress Noteson 05-19-2024 Mechanic Chief Authentication Interface Message TextNormMorrow County Hospitale [facility] System Mechanic Chief Authentication Interface Message TextNormMorrow County Hospitale [facility] System Mechanic Chief Authentication Interface Message TextNormMorrow County Hospitale [facility] Mechanic Chief Authentication Interface Message TextNormThe Medical MemoryroMatch Point Partners System Mechanic Chief Authentication Interface Message TextNormVentriPoint Diagnosticse [facility]neroHealth System Mechanic Chief Authentication Interface Message [id number]: trauma team at the bedside to intubate pt. 1426: 14 etomidate given, 70 of Koko given 1429: #7.5 tube and 24 @ lips with positive color change 1433: Pressure 55/46, 100 phenyl mcg/mL given 1436: Levo started 1442: Waiting for XR confirmationNormalThe AllozyneroHealth SystemTranscription Authentication Interface Message TextNormVentriPoint Diagnosticse AllozyneroHealth SystemTranscription Authentication Interface Message TextNormVentriPoint Diagnosticse AllozyneroMatch Point Partners SystemTranscription Authentication Interface Message TextNormVentriPoint Diagnosticse AllozyneroMatch Point Partners SystemTranscription Authentication Interface Message TextNormThe Medical MemoryroMatch Point Partners SystemStudent Noteon 79-67-2879Qcqhxdabggekt Authentication Interface Message TextNormThe Medical MemoryroMatch Point Partners SystemTranscription Authentication Interface Message TextNormalThe AllozyneroHealth SystemXR CHEST AP OR PA 1 VIEWon 71-54-1524EJ CHEST AP OR PA 1 VIEW NormalThe [facility] SystemXR CHEST AP OR PA 1 VIEWNormalThe [facility] XR Chest Single viewon 06-02-9995ZDYPEIHPMGL: XR CHEST AP OR PA 1 VIEW 05/19/2024 06:40 AM CLINICAL HISTORY: Chest tube assessment ASSOCIATED DIAGNOSIS: Chest tube assessment ORDERING PROVIDER: KIMBERLEE [employer] NOTE: COMPARISON: / XR CHEST AP OR PA 1 VIEW 05/17/2024, 2:54 PM XRAY CHEST IMAGE IMPORT(OPAL) 05/17/2024, 6:00 AM XR CHEST AP OR PA 1 VIEW 05/18/2024, 6:10 AM FINDINGS: Lines, tubes, and devices: Right-sided pigtail chest tube in stable appropriate position. EKG leadsoverlie the chest. Lungs and pleura: Increased right [...] right rib fractures are identified. MACRO: None RADIOLOGYKoehl, Edward, MD - 05/19/2024 EXAMINATION: XR CHEST AP OR PA 1 VIEW 05/19/2024 06:40 AM CLINICAL HISTORY: Chest tube assessment ASSOCIATED DIAGNOSIS: Chest tube assessment ORDERING PROVIDER: KIMBER[employer]E [employer] NOTE: COMPARISON: / XR CHEST AP OR PA 1 VIEW 05/17/2024, 2:54 PM XRAY CHEST IMAGE IMPORT(OPAL) 05/17/2024, 6:00 AM XR CHEST AP OR PA 1 VIEW 05/18/2024, 6:10 AM FINDINGS: Lines, tubes, and devices: Right-sided pigtail chest tube in stable appropriate position. EKG leadsoverlie the chest. Lungs and pleura: Increased right [...] right rib fractures are identified. MACRO: None [facility] IncRadiology Study observation (narrative)[facility]XR Chest Single viewOrdered By: Micah Lynne on 89-13-5517VpqwzXxbjvc Work Phone: aNTL FXA-LMW HEPARINon 56-82-1963LHIQ FXA-LMW HEPARIN ASSAY0.44 IU/mLNormalThe [facility] SystemComment on above:Order Comment: The recommended therapeutic range for treatment of thrombosis with Low Molecular Weight Heparin is 0.5 - 1.0 IU/mLThe recommended range for VTE prophylaxis with Low Molecular Weight Heparin is 0.2 - 0.4 IU/mL.Performed By: #### ANGELINA ####[facility] PATHOLOGY ZQFJXWCBPE9609 [place], [address]SJOAU METABOLIC PANELon 09-09-0512Cgymg gap [Moles/Vol]13 mmol/DDupfxs43-15Oou [facility] SystemComment on above:Performed By: #### CH8 ####[facility] PATHOLOGY YSCGOIWBAT0589 [place], [address]Gfkhrce [Mass/Vol]8.4 mg/dLLow8.6-10.3The [facility] CenterroHealth SystemComment on above:Performed By: #### CH8 ####S PATHOLOGY NZWLCMXYTV3295 [place], [place], Chloride [Moles/Vol]98 mmol/BPqjlmq58-670Exh [facility] CenterroGerman Hospital SystemComment on above: Performed By: #### CH8 ####[facility] PATHOLOGY LGFMYPTPCP7222 [place], [address]BL6 [Moles/Vol]23 mmol/FHeitna87-75Ukh [facility] CenterroGerman Hospital SystemComment on above:Performed By: #### CH8 ####[facility] PATHOLOGY BIWEEFUWXT1521 [place], [address]Kggmnyaehr [Mass/Vol]2.09 mg/dLHigh 0.70-1.30The [facility] CenterroHealth SystemComment on above:Performed By: #### CH8 ####[facility] PATHOLOGY NSTHNSJTUE6872 [place], [address]PSUAPYTNT GFR (CKD-EPI)31 mL/min/1.73sqmLow>=60The [facility] SystemComment on above:Result Comment: 2020 CKD EPI Equation using Creatinine without RaceComment: Estimated glomerular filtration rate (eGFR) is calculated without a race coefficient. Values should be interpreted in the context of the patient's full clinical presentation.Reference:1. Rishi C, Jorge M, Nic SILVA, et al.. A Unifying Approach for GFR Estimation: Recommendations of the NKF-ASN Task Force on Reassessing the Inclusion of Race in Diagnosing Kidney Disease. [place] Islander Journal of Kidney Diseases 2021;79(2):268-88.e1.2. N Engl J Med 2020 Vol. 385 Issue 19 Pages 9350-4080Performed By: #### CH8 ####S PATHOLOGY AQZWRMJVOL5117 [place], [address]Bbxbibm [Mass/Vol]106 mg/dLNormal 74-109The [facility] SystemComment on above:Performed By: #### CH8 ####S PATHOLOGY MVRJDJZYFB5800 [place], [address]Ewgrcftup [Moles/Vol]6.6 mmol/LCritically high3.5-5.0The [facility] SystemComment on above:Result Comment: Hemolysis presentPerformed By: #### CH8 ####[facility] PATHOLOGY ZNRXEKGOTJ[address] [place] [address], [address]Cvkoid [Moles/Vol]127 mmol/SEyu988-024Smr [facility] SystemComment on above:Performed By: #### CH8 ####[facility] PATHOLOGY FVWNZQYAIS12[address] [place] [address], [address]Mqzv nitrogen [Mass/Vol]50 mg/dLHigh7-25The [facility] SystemComment on above: Performed By: #### CH8 ####[facility] PATHOLOGY YFCQSAYCXA[address] [place] [address], [address]Kryoe gap [Moles/Vol]13 mmol/BRmsjkb13-29Hfx [facility] SystemComment on above:Performed By: #### CH8 ####[facility] PATHOLOGY TGSSBUABPN[address] [place] [address], [address]Elblhdk [Mass/Vol]6.7 mg/dLLow8.6-10.3The [facility] SystemComment on above:Performed By: #### CH8 ####[facility] PATHOLOGY PODMDLKVSZ[address] [place] [address], Chloride [Moles/Vol]103 mmol/RKvlhjx11-801Jov [facility] CenterroHealth SystemComment on above:Performed By: #### CH8 ####[facility] PATHOLOGY ATMOJBOJLA5[address] [place] [address], [address]TW5 [Moles/Vol]19 mmol/UKwq25-79Wlc [facility] SystemComment on above:Performed By: #### CH8 ####[facility] PATHOLOGY KYVWHMAJPO[address] [place] [address], [address]Cjlpvisgvm [Mass/Vol]1.68 mg/dLHigh 0.70-1.30The [facility] CenterroHealth SystemComment on above:Performed By: #### CH8 ####S PATHOLOGY QPRNUJMPFY[address] [place] [address], [address]MOFPUFJGP GFR (CKD-EPI)40 mL/min/1.73sqmLow>=60The [facility] CenterroHealth SystemComment on above:Result Comment: 2020 CKD EPI Equation using Creatinine without RaceComment: Estimated glomerular filtration rate (eGFR) is calculated without a race coefficient. Values should be interpreted in the context of the patient's full clinical presentation.Reference:1. Rishi Jose, Jorge M, Nic SILVA, et al.. A Unifying Approach for GFR Estimation: Recommendations of the NKF-ASN Task Force on Reassessing the Inclusion of Race in Diagnosing Kidney Disease. [place] Islander Journal of Kidney Diseases 2021;79(2):268-88.e1.2. N Engl J Med 2020 Vol. 385 Issue 19 Pages 0141-8831Performed By: #### CH8 ####S PATHOLOGY AAGNNMYMGW1927 [place], [address]Degfgcc [Mass/Vol]74 mg/hJYyqzhr24-381 The [facility] SystemComment on above:Performed By: #### CH8 ####[facility] PATHOLOGY SSSEYHNNCE9947 [place], [address]Hlmtuaugf [Moles/Vol] 5.4 mmol/LHigh3.5-5.0The [facility] CenterroHealth SystemComment on above:Performed By: #### CH8 ####[facility] PATHOLOGY YKLWKVUQAS9103 [place], [place], Sodium [Moles/Vol]130 mmol/MEkd103-064Edi [facility] SystemComment on above: Performed By: #### CH8 ####S PATHOLOGY FEZNQJDISW1710 [place], [address]Hcpm nitrogen [Mass/Vol]42 mg/dLHigh7-25The [facility] SystemComment on above:Performed By: #### CH8 ####[facility] PATHOLOGY RSTFKSYANS7879 [place], [address]MIOHQ GAS, ARTERIALon 83-22-0156LD ABE0.4 mmol/LNormal-2.0-3.0The [facility] SystemComment on above: Performed By: #### CR BGA ####[facility] PATHOLOGY RSOJVREYBJ4555 [place], [address]OW ECS686.9 mm KyNxyq19.0-45.0The [facility] SystemComment on above:Performed By: #### CR BGA ####[facility] PATHOLOGY XVEBILOILN5766 [place], [address]LT PHA7.329Low 7.350-7.450The [facility] CenterHealth SystemComment on above:Performed By: #### CR BGA ####[facility] PATHOLOGY KAZQRLFUNE[address] [place] [address], [address]NW PO298 mm MaYcaixs25-394Hmx [facility] SystemComment on above:Performed By: #### CR BGA ####[facility] PATHOLOGY ABTVYYARPG[address] [place] [address], [address]SPD5 (CATEGORY)40%NormalThe [facility] SystemComment on above: Performed By: #### CR BGA ####[facility] PATHOLOGY KKBWIPQAIZ4[address] [place] [address], [address]ZTJ4 (Bld) [Moles/Vol]26 mmol/AJpbsos27-50Wqm [facility] SystemComment on above:Performed By: #### CR BGA ####[facility] PATHOLOGY YCGXPPRHNK30[address] [place] [address], [address]XMBIKPGINUyzkhpDli [facility] SystemComment on above:Performed By: #### CR BGA ####[facility] PATHOLOGY WWZZQOWOZX[address] [place] [address], [address]Syncnw saturation in Blood97.7 %Cqsgds90.0-99.0The [facility] SystemComment on above:Performed By: #### CR BGA ####[facility] PATHOLOGY KLJWJACDHZ[address] [place] [address], [address]DBDGJNH, IONIZEDon 12-00-8770TD ICA1.05 mmol/LLow1.15-1.33The [facility] SystemComment on above:Result Comment: This test was developed, and its performance characteristics determined by the Department of Pathology of [facility]. It has not been cleared or approved by the FDA. This test is used for clinical purposes only.Performed By: #### CR ICA ####[facility] PATHOLOGY CEPDXBOKPN[address] [place] [address], [address]ROJWCIYT BLOOD COUNTon 93-62-9144Metjjzsvmjp distribution width (RBC) [Ratio]13.9 %Xtokfc86.5-14.5The [facility] CenterHealth SystemComment on above:Performed By: #### CBC ####[facility] PATHOLOGY KOOSOAJOWD40[address] [place] [address], [address]Lhlrollvke (Bld) [Volume fraction]28.9 %Low41.0-53.0The [facility] CenterHealth SystemComment on above: Performed By: #### CBC ####[facility] PATHOLOGY JUXUPKKWSS[address] [place] [address], [address]Zuslsuyrwr (Bld) [Mass/Vol]9.4 g/dLLow13.9-16.3The [facility] CenterHealth SystemComment on above:Performed By: #### CBC ####[facility] PATHOLOGY PBPOMJTXQB3394[address] [place] [address], [address]HLD (RBC) [Entitic mass]32.7 uzXzxbtu18.0-34.0The [facility] SystemComment on above:Performed By: #### CBC ####[facility] PATHOLOGY MAUCNDUSDF9945[address] [place] [address], [address]COCK (RBC) [Mass/Vol]32.5 g/lZKtgrny83.0-35.9The [facility] System Comment on above:Performed By: #### CBC ####[facility] PATHOLOGY MNVOWVAWUR06[address] [place] [address], [address]NMU (RBC) [Entitic vol]101 fLHigh 80-100The [facility] SystemComment on above:Performed By: #### CBC ####[facility] PATHOLOGY VHQPUYHTCC8076[address] [place] [address], [address]Hgvelnnb mean volume (Bld) [Entitic vol]6.9 fLLow7.5-11.2The [facility] SystemComment on above:Performed By: #### CBC ####[facility] PATHOLOGY ZZHDIVXWAV8[address] [place] [address], [address]Fjuruigts (Bld) [#/Vol]100 10*3/kPIck350-583Oiu [facility] SystemComment on above:Performed By: #### CBC ####[facility] PATH[facility] GSSEPZMDUU3607 [place], [address]VRC (Bld) [#/Vol]2.87 10*6/uLLow4.50-5.90The [facility] CenterroHealth SystemComment on above:Performed By: #### CBC ####[facility] PATHOLOGY SLLYEWRKJL6354[address] [place] [address], [address]IJB (Bld) [#/Vol]3.8 10*3/uLLow4.5-11.5The [facility] CenterHealth SystemComment on above: Performed By: #### CBC ####[facility] PATHOLOGY HXJMLNQRSL1325[address] [place] [address], [address]Kwfhcfqlvk 41-54-3640Kfikdxjltyhor Authentication Interface Message TextNormC[facility] SystemTranscription Authentication Interface Message TextNormC[facility] Clinic [facility]st Hospital SystemGLUCOSE, FINGERSTICK-IN OFFICE on 15-60-8775Pqjuien [Mass/Vol]102 mg/mZEddtra73-285Zie [facility] System Comment on above:Performed By: #### 69098 ####NURSING GLUCOSE TWESPYA4787[address] [place] [address], [address]Ccozogg [Mass/Vol]72 mg/xFKvv54-100Mxu [facility] SystemComment on above:Performed By: #### 52083 ####NURSING GLUCOSE UJRKKUE3667[address] [place] [address], [address]Nypnlxn [Mass/Vol]46 mg/dL Critically ahz71-443Yrd [facility] SystemComment on above:Result Comment: Will Repeat TestPerformed By: #### [id number] ####NURSING GLUCOSE ODATTRQ2497[address] [place] [address], [address]Ehnvdek [Mass/Vol]120 mg/mBBfkl23-297Cbb [facility] SystemComment on above:Performed By: #### 51236 ####NURSING GLUCOSE OWAJJSW6189[address] [place] [address], [address]PZTUBMTBP, WHOLE BLOODon 05-18-2024 Potassium [Moles/Vol]5.0 mmol/LNormal3.5-5.0The [facility] CenterHealth SystemComment on above:Performed By: #### CR K ####S PATHOLOGY UFGJLWSEWQ3982 [place], [address]Vznllydif [Moles/Vol]5.7 mmol/LHigh3.5-5.0The [facility] SystemComment on above:Performed By: #### CR K ####[facility] PATHOLOGY YRZGVFEDBW0482 [place], [address]Ukltoiln Noteson 15-30-5109Bmmrvnpmiwtud Authentication Interface Message TextNormCorrigan Mental Health CenterMatch Point Partners SystemTranscription Authentication Interface Message TextNoC[facility] Clinic [facility] SystemTranscription Authentication Interface Message TextNoCritical access hospitalMatch Point Partners SystemStudent Noteon 23-01-7269Rtjrjtvxaiiek Authentication Interface Message TextNormCorrigan Mental Health CenterMatch Point Partners SystemXR CHEST AP OR PA 1 VIEWon 95-78-5439NC CHEST AP OR PA 1 VIEWNormCorrigan Mental Health CenterMatch Point Partners SystemXR Chest Single viewon 13-99-8147ZCVLHKHCGHD: XR CHEST AP OR PA 1 VIEW [...] right basilar consolidation which may represent atelectasis ora superimposed infectious process would be difficult to exclude. MACRO: None Vu Holly MD - 05/18/2024 EXAMINATION: XR CHEST AP [...] right basilar consolidation which may represent atelectasis ora superimposed infectious process would be difficult to exclude. MACRO: None [facility]Radiology Study observation (narrative)[facility]XR Chest Single viewOrdered By: Vu Sullivan on 06-60-6319HcyedAnnchr Work Phone: abo RH TYPEon 75-64-4946CKP and Rh group Nom (Bld) Blood group A Rh(D) positiveNoWayne HealthCare Main CampusComment on above: Performed By: #### ABORH ####[facility] PATHOLOGY YRXOQWYDPD1556 [place], [address]YHM/Rh History Checkon 03-75-1472BNL/Rh History CheckPatient discharged priorNoMercy Health Lorain HospitalComment on above: Performed By: #### [id number] #### [facility] [address] [place], [place] [address]Pnqifptqae Acute Painon 54-75-9027Qkxixxedcgnjt Authentication Interface Message TextNormC[facility] SystemTranscription Authentication Interface Message TextNormCleveland Clinic Hill[facility]st Hospital SystemAnesthesia Procedure Noteson 10-36-0955Xuhmsxjldmgfm Authentication Interface Message TextInvalid Interpretation CodeThe [facility] Medical CenterBASIC METABOLIC PANELon 29-90-2784Dtvoe gap [Moles/Vol]13 mmol/VAgbcwx52-27Ptw [facility] SystemComment on above: Performed By: #### PHOS, CH8, HEPATIC, MG ####[facility] PATHOLOGY ZDGHMUUQCT6523 [place], [address]Qcsohdw [Mass/Vol]9.7 mg/dLNormal 8.6-10.3The [facility] SystemComment on above:Performed By: #### PHOS, CH8, HEPATIC, MG ####[facility] PATHOLOGY XSMSGVNVCU0820 [place], [address]Xcfaafyf [Moles/Vol]91 mmol/OVro14-528Bqk [facility] CenterroHealth SystemComment on above:Performed By: #### PHOS, CH8, HEPATIC, MG ####[facility] PATHOLOGY MCUUDPMFJB6998 [place], [address]NL6 [Moles/Vol]28 mmol/JZnixgn59-06Mwz [facility] CenterroHealth SystemComment on above:Performed By: #### PHOS, CH8, HEPATIC, MG ####[facility] PATHOLOGY ECWVXRWZDR6760 [place], [address]Zdysebynyu [Mass/Vol]1.22 mg/dLNormal0.70-1.30The [facility] CenterroHealth SystemComment on above:Performed By: #### PHOS, CH8, HEPATIC, MG ####[facility] PATHOLOGY OCXAOUIFNW8488 [place], [address]RVQPZJFIN GFR (CKD-EPI)59 mL/min/1.73sqmLow>=60The [facility] SystemComment on above:Result Comment: 2020 CKD EPI Equation using Creatinine without RaceComment: Estimated glomerular filtration rate (eGFR) is calculated without a race coefficient. Values should be interpreted in the context of the patient's full clinical presentation.Reference:1. Rishi C, Jorge M, Nic SILVA, et al.. A Unifying Approach for GFR Estimation: Recommendations of the NKF-ASN Task Force on Reassessing the Inclusion of Race in Diagnosing Kidney Disease. [place] Journal of Kidney Diseases 202;79(2):268-88.e1.2. N Engl J Med 2021 Vol. 385 Issue 19 Pages 1736-9422Performed By: #### AMMON MIRELES, HEPATIC, MG ####S PATHOLOGY YQYRSXIPZX3211 [place], [address]Aswvhme [Mass/Vol]155 mg/tMRdpv48-664Fsu [facility] CenterroHealth SystemComment on above:Performed By: #### AMMON MIRELES, HEPATIC, MG ####S PATHOLOGY BJWMUQVTLY8808 [place], [address]Hgcfbhlzw [Moles/Vol]5.3 mmol/LHigh3.5-5.0The [facility] CenterroHealth System Comment on above:Performed By: #### AMMON MIRELES, HEPATIC, MG ####S PATHOLOGY NGMWHDNDQO[address]64[address] [place] [address], [address]Xbcgnm [Moles/Vol]127 mmol/RYeg564-605Kck [facility] Centerro[facility] SystemComment on above:Performed By: #### AMMON MIRELES, HEPATIC, MG ####S PATHOLOGY TFJGPCFSAH[address]28[address] [place] [address], [address]Ezwn nitrogen [Mass/Vol]25 mg/dLNormal7-25The [facility] Comment on above:Performed By: #### AMMON MIRELES, HEPATIC, MG ####S PATHOLOGY LVRFUTOCNX[address] [place] [address], [address]Xwrtk gap [Moles/Vol]13 mmol/OKvlzvb54-41Qap [facility] Centerro[facility] SystemComment on above:Performed By: #### ETOH, hiv1 hiv2 agab scrn, CH8 ####S PATHOLOGY OYVSACOJAQ[address]74[address] [place] [address], [address]Cwpdlxd [Mass/Vol]9.6 mg/dLNormal8.6-10.3The [facility] CenterroHealth SystemComment on above:Performed By: #### ETOH, hiv1 hiv2 agab scrn, CH8 ####S PATHOLOGY DQQKZFKMRD841218 [place] [address], Chloride [Moles/Vol]91 mmol/CLmz19-078Luq [facility] CenterroHealth SystemComment on above: Performed By: #### ETOH, hiv1 hiv2 agab scrn, CH8 ####[facility] PATHOLOGY IQHIPQUHLB3556 [place], [address]TB3 [Moles/Vol]28 mmol/CFuolvj68-96Jox [facility] Centerro[facility] SystemComment on above:Performed By: #### ETOH, hiv1 hiv2 agab scrn, CH8 ####[facility] PATHOLOGY QOSPMHFQQP8148 [place], [address]Dhiquqlnkb [Mass/Vol]0.87 mg/dLNormal0.70-1.30The [facility] SystemComment on above:Performed By: #### ETOH, hiv1 hiv2 agab scrn, CH8 ####[facility] PATHOLOGY QQUJUSBIUY1016 [place], [place], ESTIMATED GFR (CKD-EPI)86 mL/min/1.73sqmNormal>=60The [facility] CenterroHealth SystemComment on above:Result Comment: 2020 CKD EPI Equation using Creatinine without RaceComment: Estimated glomerular filtration rate (eGFR) is calculated without a race coefficient. Values should be interpreted in the context of the patient's full clinical presentation.Reference:1. Rishi C, Baportia M, Nic DC, et al.. A Unifying Approach for GFR Estimation: Recommendations of the NKF-ASN Task Force on Reassessing the Inclusion of Race in Diagnosing Kidney Disease. [place] Islander Journal of Kidney Diseases 202;79(2):268-88.e1.2. N Engl J Med 2020 Vol. 385 Issue 19 Pages 8138-2651Performed By: #### ETOH, hiv1 hiv2 agab scrn, CH8 ####[facility] PATHOLOGY MPDPTFZFPP9363 [place], [place], Glucose [Mass/Vol]150 mg/kYYity05-844Jhf [facility] Centerro[facility] SystemComment on above: Performed By: #### ETOH, hiv1 hiv2 agab scrn, CH8 ####[facility] PATHOLOGY FERGUSVXKZ5124 [place], [address]Tvvsvrqpt [Moles/Vol] 5.2 mmol/LHigh3.5-5.0The [facility] CenterroHealth SystemComment on above:Result Comment: Hemolysis presentPerformed By: #### ETOH, hiv1 hiv2 agab scrn, CH8 ####[facility] PATHOLOGY OMXYNYRQTS[address] [place] [address], [address]Mcjesw [Moles/Vol]127 mmol/DSqy012-223Pwo [facility] CenterroHealth SystemComment on above:Performed By: #### ETOH, hiv1 hiv2 agab scrn, CH8 ####[facility] PATHOLOGY SOSCRKATLE8215[address] [place] [address], [address]Zfmv nitrogen [Mass/Vol]22 mg/dLNormal 7-25The [facility] Centerro[facility] SystemComment on above:Performed By: #### ETOH, hiv1 hiv2 agab scrn, CH8 ####[facility] PATHOLOGY BMBPVSKZEI1766[address] [place] [address], [address]YSSSC GAS, ARTERIALon 01-70-6512OH JOSEPH-0.7 mmol/LNormal-2.0-3.0The [facility] CenterroHealth SystemComment on above:Performed By: #### CR BGA ####[facility] PATHOLOGY ZSWCACNPNE1986[address] [place] [address], [address]RE NUT201.3 mm HgHigh 35.0-45.0The [facility] CenterroHealth SystemComment on above:Performed By: #### CR BGA ####[facility] PATHOLOGY SOSAMZZNUL4043[address] [place] [address], [address]JR PHA7.800Vzw0.350-7.450The [facility] CenterroHealth SystemComment on above:Performed By: #### CR BGA ####[facility] PATHOLOGY XWKSKJIHQO1268[address] [place] [address], [address]JK PO285 mm OpHircyb40-110Yqe [facility] Centerro[facility] SystemComment on above: Performed By: #### CR BGA ####[facility] PATHOLOGY IDZFBGTITA967[address] [place] [address], [address]PUM1 (CATEGORY)40%NormalThe [facility] Comment on above:Performed By: #### CR BGA ####[facility] PATHOLOGY OPSGNLFHCK685[address] [place] [address], [address]MGT0 (Bld) [Moles/Vol]25 mmol/LNormal 21-28The [facility] CenterroHealth SystemComment on above:Performed By: #### CR BGA ####[facility] PATHOLOGY CRJFYQIUMR4267 [place], [address]WWMKHUCYT NormalThe [facility] SystemComment on above:Performed By: #### CR BGA ####[facility] PATHOLOGY INEBPEOHUS2852[address] [place] [address], [address]Gyzfwu saturation in Blood95.9 %Xxtcou62.0-99.0The [facility] SystemComment on above: Performed By: #### CR BGA ####[facility] PATHOLOGY COZZVTNOGO8948[address] [place] [address], [address]LT JOSEPH-2.4 mmol/LLow-2.0-3.0The [facility] Comment on above:Performed By: #### CR BGA ####[facility] PATHOLOGY RYOQKYROCR196[address] [place] [address], [address]RK PZK102.3 mm XlGakv08.0-45.0The [facility] CenterroHealth SystemComment on above:Performed By: #### CR BGA ####[facility] PATHOLOGY DVZWEYAPXU1678[address] [place] [address], [address]NZ PHA7.244Low 7.350-7.450The [facility] SystemComment on above:Performed By: #### CR BGA ####[facility] PATHOLOGY MIKRSTUOKO944[address] [place] [address], [address]DA PO282 mm NhAqhsab77-010Cdb [facility] Centerro[facility] SystemComment on above:Performed By: #### CR BGA ####[facility] PATHOLOGY OANSJQTNIN5918[address] [place] [address], [address]WDV9 (CATEGORY)40%NormalThe [facility] SystemComment on above: Performed By: #### CR BGA ####[facility] PATHOLOGY SOGPZYJQAL087[address] [place] [address], [address]FQX1 (Bld) [Moles/Vol]25 mmol/TMvbewj33-05Oor [facility] SystemComment on above:Performed By: #### CR BGA ####[facility] PATHOLOGY HJDTIJVXTI1563[address] [place] [address], [address]DZQYIWKLHDnrulfSoc [facility] SystemComment on above:Performed By: #### CR BGA ####[facility] PATHOLOGY SIHNINSIBY879[address] [place] [address], [address]Jgygtx saturation in Blood94.8 %Low95.0-99.0The [facility] SystemComment on above:Performed By: #### CR BGA ####[facility] PATHOLOGY BWXJANANSU7916[address] [place] [address], [address]OV ABE0.1 mmol/LNormal-2.0-3.0The [facility] SystemComment on above: Performed By: #### CR BGA ####[facility] PATHOLOGY PRMVQLIPAX1784[address] [place] [address], [address]VQ NAG570.5 mm HxWdqs97.0-45.0The [facility] SystemComment on above:Performed By: #### CR BGA ####[facility] PATHOLOGY TZMGKWYLGE3653[address] [place] [address], [address]DZ PHA7.248Low 7.350-7.450The [facility] SystemComment on above:Performed By: #### CR BGA ####[facility] PATHOLOGY HRRZVRZFPK6172[address] [place] [address], [address]VC RV1345 mm KvTtvd09-759Dyw [facility] Centerro[facility] SystemComment on above:Performed By: #### CR BGA ####[facility] PATHOLOGY PZYUWXNLED4769[address] [place] [address], [address]BGQ7 (CATEGORY)>5 LPMNormalThe [facility] CenterroHealth SystemComment on above: Performed By: #### CR BGA ####[facility] PATHOLOGY JRULKRGLMX235[address] [place] [address], [address]VSY9 (Bld) [Moles/Vol]28 mmol/DTnkrrq94-84Ssh [facility] Centerro[facility] SystemComment on above:Performed By: #### CR BGA ####[facility] PATHOLOGY XKXCOHERCR6042[address] [place] [address], [address]CNNCWicdh CanulaNormal The [facility] CenterroHealth SystemComment on above:Result Comment: 6LPerformed By: #### CR BGA ####[facility] PATHOLOGY KZWEFMMCRS978[address] [place] [address], Oxygen saturation in Blood97.5 %Dyvspi95.0-99.0The [facility] SystemComment on above:Performed By: #### CR BGA ####[facility] PATHOLOGY PCEGZACXCD5126 [place], [address]AZKODBD, IONIZEDon 62-33-4414MQ ICA1.11 mmol/LLow 1.15-1.33The [facility] SystemComment on above:Result Comment: This test was developed, and its performance characteristics determined by the Department of Pathology of [facility]. It has not been cleared or approved by the FDA. This test is used for clinical purposes only.Performed By: #### CR ICA, LACT ####[facility] PATHOLOGY DWBKYCZXRB2569 [place], [place], CR ICA1.15 mmol/LNormal1.15-1.33The [facility] SystemComment on above:Result Comment: This test was developed, and its performance characteristics determined by the Department of Pathology of [facility]. It has not been cleared or approved by the FDA. This test is used for clinical purposes only. Performed By: #### CR ICA ####[facility] PATHOLOGY XKRATNOXHW8982 [place], [address]NXNEVAFM BLOOD COUNTon 48-74-5785Qetqciucgwm distribution width (RBC) [Ratio]13.7 %Ilwwdq06.5-14.5The [facility] System Comment on above:Performed By: #### CBC ####[facility] PATHOLOGY ZGBITBBESC1086 [place], [address]Nywiyungvo (Bld) [Volume fraction]33.6 %Low41.0-53.0The [facility] SystemComment on above:Performed By: #### CBC ####S PATHOLOGY ZGFJXMMRQH8029 [place], [place], Hemoglobin (Bld) [Mass/Vol]11.2 g/dLLow13.9-16.3The [facility] SystemComment on above:Performed By: #### CBC ####S PATHOLOGY HDTNEKLAGY2833 [place], [address]CFD (RBC) [Entitic mass]33.3 gkTpygdz70.0-34.0The [facility] SystemComment on above:Performed By: #### CBC ####[facility] PATHOLOGY OHIDZFOKFM[address]03[address] [place] [address], [address]RBIB (RBC) [Mass/Vol] 33.3 g/uXDnramb82.0-35.9The [facility] SystemComment on above:Performed By: #### CBC ####[facility] PATHOLOGY PHPVLWDBTQ6274[address] [place] [address], [address]GIY (RBC) [Entitic vol]100 wAMaqnxp67-457Wqi [facility] SystemComment on above:Performed By: #### CBC ####[facility] PATHOLOGY SIHGAQPCMC8937[address] [place] [address], [address]Shkupoqz mean volume (Bld) [Entitic vol]6.7 fLLow 7.5-11.2The [facility] SystemComment on above:Performed By: #### CBC ####[facility] PATHOLOGY JSDPFIPUDY4198[address] [place] [address], [address]Ielasefsy (Bld) [#/Vol]204 10*3/qXMaftwg321-666Bsy [facility] SystemComment on above: Performed By: #### CBC ####[facility] PATHOLOGY BTNLMUWYNX032[address] [place] [address], [address]MPJ (Bld) [#/Vol]3.37 10*6/uLLow4.50-5.90The [facility] Center[facility] SystemComment on above:Performed By: #### CBC ####[facility] PATHOLOGY YJZVCXABCP2568[address] [place] [address], [address]UJC (Bld) [#/Vol]9.5 10*3/uLNormal4.5-11.5The [facility] Center[facility] SystemComment on above:Performed By: #### CBC ####[facility] PATHOLOGY DMXOBJLLLC6485[address] [place] [address], Erythrocyte distribution width (RBC) [Ratio]13.5 %Duitkt55.5-14.5The [facility] SystemComment on above:Performed By: #### CBC ####[facility] PATHOLOGY LWTYULVSCN0849[address] [place] [address], [address]Endwnemvrk (Bld) [Volume fraction]41.9 %Rnfdgh66.0-53.0The [facility] SystemComment on above:Performed By: #### CBC ####[facility] PATHOLOGY HZOPUKMUKB0097[address] [place] [address], Hemoglobin (Bld) [Mass/Vol]14.1 g/fDGqjgai38.9-16.3The [facility] SystemComment on above:Performed By: #### CBC ####[facility] PATHOLOGY IJZSDMDPNS8[address] [place] [address], [address]SJS (RBC) [Entitic mass]33.2 vqLjwnca90.0-34.0The [facility] Center[facility] SystemComment on above:Performed By: #### CBC ####[facility] PATHOLOGY OJSBNVDEYD224[address] [place] [address], [address]OVAC (RBC) [Mass/Vol] 33.6 g/tHKybvhu75.0-35.9The [facility] SystemComment on above:Performed By: #### CBC ####[facility] PATHOLOGY FYHMYAZENP2885[address] [place] [address], [address]EBW (RBC) [Entitic vol]99 pXCqqxuv09-416Yhj [facility] SystemComment on above:Performed By: #### CBC ####[facility] PATHOLOGY LAPADARWPD5609[address] [place] [address], [address]Orfdisxf mean volume (Bld) [Entitic vol]6.7 fLLow 7.5-11.2The [facility] Center[facility] SystemComment on above:Performed By: #### CBC ####[facility] PATHOLOGY NMSRIWTYAX3772[address] [place] [address], [address]Nzklccsfv (Bld) [#/Vol]250 10*3/cSKqdvyv941-842Lns [facility] CenterHealth SystemComment on above: Performed By: #### CBC ####[facility] PATHOLOGY SIXVXRWWGL1409[address] [place] [address], [address]MYM (Bld) [#/Vol]4.24 10*6/uLLow4.50-5.90The [facility] Center[facility] SystemComment on above:Performed By: #### CBC ####[facility] PATHOLOGY QHUBZXMWLW2731 [place], [address]ZGP (Bld) [#/Vol]13.4 10*3/uLHigh4.5-11.5The [facility] SystemComment on above:Performed By: #### CBC ####[facility] PATHOLOGY MJBGHYVJYC5873 [place], [address]TW Abdomen/Pelvis w/ Contraston 23-73-7821CO Abdomen/Pelvis w/ ContrastExam Date/Time: 05/16/2024 22:39 EDT Reason for Exam: [...] amount in ml's: 130 Rectal Contrast Given? NoNormalOhio State East HospitalCT Chest w/ Contraston 42-64-1601ZD Chest w/ ContrastExam Date/Time: 05/16/2024 22:39 EDT Reason for Exam: [...] Contrast: Isovue 300 Contrast amount in ml's: 130NormalFisher Brook [address] Psychiatric CenterCT Head or Brain w/o Contraston 81-44-3661GW Head or Brain w/o ContrastExam Date/Time: 05/16/2024 22:39 EDT Reason for Exam: [...] Toñito Myrick MD Transcribed by: [place] Technologist: [facility] HospitalCT PELVIS BONY W/O CONTRASTon 40-96-1892ZA PELVIS BONY W/O CONTRASTUniversity Hospitals Cleveland Medical CenterCT Spine Cervical w/o Contraston 78-31-7465VA Spine Cervical w/o Contrast Exam Date/Time: 05/16/2024 [...] moderate degenerative changes are present, with multilevel vkvw-gb-gmflhwwy neural foraminal narrowing and approximately 3 to [...] Toñito Myrick MD Transcribed by: [place] Technologist: Terese [facility] Lane Psychiatric CenterCTA HEAD/NECK W/on 07-70-1940KBU HEAD/NECK W/NormalThe [facility] SystemCare Plan Noteon 68-10-3877Vsbsfvkjjznqr Authentication Interface Message TextNormMorrow County Hospitale [facility] CenterroHealth SystemConsultson 31-89-8341Qusaigmsxrcco Authentication Interface Message TextNormMorrow County Hospitale MetroHealth SystemTranscription Authentication Interface Message TextNormMorrow County Hospitale [facility] CenterroHealth SystemTranscription Authentication Interface Message TextNormMorrow County Hospitale MetroHealth SystemED Clinical Summaryon 98-61-1301OF Clinical SummaryED Clinical Summary [place] [id number] ED Clinical Summary Person Information Name: ANDREA MICHELLE/[facility] Age: 83 Years : 1940 Sex: Male Language: Moldovan PCP: ODNY MOORE DO Marital Status: Visit Id: Visit [...] 05/17/2024 00:14:42 05/17/2024 00:14:42 05/17/2024 00:14:42 ADDRESS: [address] [place] [phone] PHYS DOC NOTES: MEDICAL INFORMATION: Prescriptions Given: PATIENT EDUCATION INFORMATION: Instructions: Follow up: DIAGNOSIS: Closed head injury; Hyponatremia; Pneumothorax; Rib fracturesSalem City Hospital Noteson 30-79-8140Xuuhbdjjyoonx Authentication Interface Message TextPT BIB MLF; tx from [facility] with right sided hemopneumo; pt has pig tail catheter in place on right side; pt fell down 6-8 stairs and hit head +LOCNormal The [facility] SystemED Patient Education Noteon 61-52-1320QP Patient Education NoteED Patient Education NoteNoMarietta Osteopathic Clinic Patient Summaryon 12-35-4927ZN Patient SummaryED Patient Summary [address] [address] Patient Discharge Instructions Person Information Name: ANDREA MICHELLE Age: 83 Years Arrival Date: 05/16/2024 21:51:40 Discharge Diagnosis: Closed head injury; Hyponatremia; Pneumothorax; Rib fractures Primary Care Physician: DONY MOORE DO Provider Information Primary Provider: Ludmila Leach DO [employer] Taper:None The exam and treatment you received in the Emergency Department were for an urgent problem and are not intended as complete care. It is important that you follow up with a doctor, nurse practitioner,or physician?s assistant financial accountant for ongoing care. If your symptoms become [...] opioids can be used to help relieve znyjxxtm-pb-endzfd pain and are often prescribed following a [...] and have fewer risks and side effects. Optionsmay include: ? Pain relievers such as acetaminophen, [...] unused prescription opioids: Find your community drug take- back program or [employer] mail-back program, or flush them down the toilet, following guidance from the Food and Drug Administration (www.fda.gov/Drugs/ResourcesForYou). ? Visit www.cdc.gov/drugoverdose to learn about the risks of opioids abuse and overdose. ? If you believe you may be struggling with addiction, tell your health care director rn and ask for guidance or call [facility]ITALA?S National Helpline at 6-382-861-HELP. v Source: US Department of Health and Human Services/Center for Disease Control & Prevention [facility] (more content not included)...[facility] Provider Notes on 54-87-2321Pyukilclggmrs Authentication Interface Message TextNoCritical access hospitalMatch Point Partners [facility] Keween[facility] HospitalEMS Documentationon [id number] DocumentationReport Please click on link to see reportNoMercy Health Lorain HospitalComment on above:Result Comment: Missing Attachment - attachment exceeds size limitation Event_[id number].pdf Can be viewed in source systemETHANOL, SERUMon 63-05-8555Secwujg [Mass/Vol]mg/dLNormalNone DetectedThe [facility] System Comment on above:Performed By: #### ETOH, hiv1 hiv2 agab scrn, CH8 ####[facility] PATHOLOGY WSCHIXPFOH0035 [place], [address]UOOOFWC, FINGERSTICK-IN OFFICEon 74-02-6496Pyopskg [Mass/Vol]95 mg/nEFazwvv60-864Zta [facility] SystemComment on above:Performed By: #### 85514 ####NURSING GLUCOSE HBCBJWI3682 [place], [place], [address]Alpvaln [Mass/Vol]162 mg/dLHigh 80-116The [facility] SystemComment on above:Performed By: #### [address]994 ####NURSING GLUCOSE GDHQROD5233[address] [place] [address], [address]Q AND Ricardo 84-42-7471Sijlgnhffvbhv Authentication Interface Message TextNormalThe Delta Medical CenterMatch Point Partners SystemHEPATIC FUNCTION PANELon 51-07-6675Qqxntha [Mass/Vol]4.5 g/dL Normal3.5-5.7The [facility] SystemComment on above:Performed By: #### PHOS, CH8, HEPATIC, MG ####[facility] PATHOLOGY DVZKYVJADL9253[address] [place] [address], [address]VDE26 IU/YEsiaha96-217Kdw [facility] SystemComment on above: Performed By: #### PHOS, CH8, HEPATIC, MG ####[facility] PATHOLOGY YFGGIYOIZS7790 [place], [address]TYD [Catalytic activity/Vol]26 U/L Normal7-52The [facility] SystemComment on above:Performed By: #### PHOS, CH8, HEPATIC, MG ####[facility] PATHOLOGY VMWIQWRSDP1847 [place], [address]AFL [Catalytic activity/Vol]34 U/TDwtgiu21-23Qon [facility] System Comment on above:Performed By: #### PHOS, CH8, HEPATIC, MG ####[facility] PATHOLOGY OQINMZWWUS1634 [place], [address]Gjjxgervl [Mass/Vol]0.4 mg/dLNormal0.3-1.0The [facility] SystemComment on above:Performed By: #### PHOAlfonzo, CH8, HEPATIC, MG ####S PATHOLOGY MURXVMXGCC1842 [place], [address]Gxamsmmgd.direct [Mass/Vol]0.08 mg/dLNormal 0.03-0.18The [facility] SystemComment on above:Performed By: #### PHOS, CH8, HEPATIC, MG ####S PATHOLOGY BKVKQEUXZW6922 [place], [address]Moibjuv [Mass/Vol]7.0 g/dLNormal6.0-8.3The [facility] SystemComment on above:Performed By: #### PHOAlfonzo, CH8, HEPATIC, MG ####S PATHOLOGY TEWBIIJGPW0744 [place], [address]ACTI SENSITIVITY TROPONIN Ion 65-20-6585UW TROPONIN I14 ng/LNormal<=15The [facility] System Comment on above:Order Comment: Elevated troponin can result from acute myocardial infarction (coronary etiology) ormyocardial injury (non-coronary etiology) - always consider both.Interval test times for ruling outacute coronary syndrome (ACS) are 2 hours.All results are reported in whole numbers representing ng/L. Results obtained by different labs or methods are not comparable.For ruling out ACS, lab values are always used in conjunction with clinical risk assessment (e.g., HEART score*).Interpreting initial value in ruling out ACSLess than 5 ng/L - below lower limit of quantification - essentially rulesout ACS if chest pain began more than [...] (i.e. <=15 ng/L = 0 points, 16-45 ng/L= 1 point, >45 ng/L = 2 points).DispositionIntermediate hsTnI values DO NOT mandate admission toa cardiology or telemetry unit. They need to be interpreted within the clinical context using provider judgement.Performed By: #### HSTRP ####[facility] PATHOLOGY PNVWKTHELL5298 [place], [address]ODG0 HIV2 AGAB SCRNon 91-06-0811CMK AG-AB CNUULZRhc-FhfoxqgeQllxzzVhp-IerzvivkElq [facility] System Comment on above:Order Comment: HIV Information: ???[place] Rev. code 3701.243(E):This information has been disclosed to you from confidential records protected from disclosure by state law. ???You shall make no furtherdisclosure of this information without the specific, written, and informed release of the individual to whom it pertains, or as otherwise permitted by state law. ???A general authorization for the release of medical or other information is not sufficient for the purpose of the release of HIV test results or diagnoses. Result Comment: No laboratory evidence for HIV Infection. Negative result does not rule out acute HIV infection. If acute HIV infection is suspected, recommend ordering an HIV-1 RNA quanitification test.Performed By: #### ETOH, hiv1 hiv2 agab scrn, CH8 ####[facility] PATHOLOGY UKWBBDNXIW7593 [place], [address]GIUQWD ACIDon 52-69-1177RH LACT1.2 mmol/LNormal0.5-1.6The [facility] SystemComment on above:Performed By: #### CR ICA, LACT ####[facility] PATHOLOGY IXPCCFPOBM6225 [place], [address]AW LACT0.9 mmol/LNormal 0.5-1.6The [facility] SystemComment on above:Performed By: #### LACT ####[facility] PATHOLOGY OQMPUESEXV5695 [place], [address]HWJNLWGIZjw 15-29-5304Hcuyxftoi [Mass/Vol]1.9 mg/dLNormal1.9-2.7The [facility] System Comment on above:Performed By: #### PHOS, CH8, HEPATIC, MG ####[facility] PATHOLOGY VJEWQOPJZV7272 [place], [address]Mg Panel Informationon 17-43-1040Wtunarj, Saheb, MD 05/17/2024 2:16 PM Peripheral Block Patient [...] Slow fractionated injection: yes No block complications [facility] CenterroHealthMetroHealthPARTIAL THROMBOPLASTIN TIMEon 32-39-0610rREY Coag (Bld) [Time]27 eWwcosx78-07Yfv [facility] Medical CenterMatch Point Partners SystemComment on above:Performed By: #### APTT, PT ####[facility] PATHOLOGY XOSFBEREIF[address] [place], [address]DWEQGLXFRQdc 55-19-4987Qzscunwsa [Mass/Vol]5.4 mg/dLHigh2.5-5.0The [facility] CenterHealth SystemComment on above:Performed By: #### PHOS, CH8, HEPATIC, MG ####S PATHOLOGY DUMPUL[address] [place] [address], PROTHROMBIN TIME AND INRon 72-91-6008FRL Coag (PPP) [Relative time]0.86 {INR}Low 0.90-1.10The [facility] SystemComment on above:Performed By: #### APTT, PT ####S PATHOLOGY HKLJBFDATT9378 [place], [address]QN Coag (PPP) [Time]9.6 sLow9.7-12.9The [facility] SystemComment on above: Performed By: #### APTT, PT ####[facility] PATHOLOGY [id number] [place] [address], [address]Otmhycue Noteson 92-68-8536Zlcclmlcgjbnh Authentication Interface Message TextNo[facility] SystemTranscription Authentication Interface Message TextNo[facility] SystemTranscription Authentication Interface Message TextNo[facility] SystemTranscription Authentication Interface Message TextNo[facility] SystemTranscription Authentication Interface Message TextNo[facility] SystemTranscription Authentication Interface Message TextNormC[facility] SystemStudent Noteon 58-74-4725Ednqbhipkgoye Authentication Interface Message TextMount [facility]inai Hospital SystemTYPE AND SCREENon 62-96-3773NGJ and Rh group Nom (Bld)Blood group A Rh(D) positiveNoC[facility] Clinic [facility] SystemComment on above:Performed By: #### TS ####S PATHOLOGY DAGEHPFLGC[address] [place] [address], [address]IFK and Rh group Nom (Bld)No Previous ResultsNoC[facility] Clinic [facility] Hospital SystemComment on above:Performed By: #### TS ####S PATHOLOGY HXDCXTJGMU[address] [place] [address], [address]KOAO INTNegativeNoCleveland Clinic Mercy Hospital SystemComment on above:Performed By: #### TS ####[facility] PATH[facility]Y YHYFRDNYRD[address] [place], [address]MK GUIDANCE NEEDLE PLACEMENTon 49-58-6789YO GUIDANCE NEEDLE PLACEMENTNormalThe MetroMatch Point Partners SystemUS Guidance for placement of needle in Unspecified body regionon 85-64-0933OwajsFhsmub: Technical services were performed by the department of Anesthesia. Please see the Procedure note for interpretation. Please refer to the patient's chart for the results of the procedure and ultrasound. MetroHealthNarrative & Impression EXAMINATION: US GUIDANCE NEEDLE PLACEMENT CLINICAL HISTORY: peripheral nerve block MetroGerman HospitalRadiology Study observation (narrative)MetroHealthUS Guidance for placement of needle in Unspecified body regionOrdered By: Shaan Cobian on 43-38-1620SmkrgFgjvsg Work Phone: XR CHEST AP OR PA 1 VIEWon 05-28-5183AB CHEST AP OR PA 1 VIEWNormalThe MetroHealth SystemXR CHEST AP OR PA 1 VIEWNormalThe MetroHealth SystemXR CHEST AP OR PA 1 VIEWNormalThe [facility] CenterroMatch Point Partners SystemXR Chest Single View on 99-20-3660NA Chest Single ViewExam Date/Time: 05/16/2024 23:12 EDT Reason for Exam: post chest tube;Other (please specify) Report IMPRESSION: Interval placement of right-sided chest tube with improvement of the right pneumothorax. EXAMINATION: XR Chest Single View Clinical History: post chest tube Comparison: Earlier studies on 05/16/2024. RESULT: Limitations from single view and with portions of the lung apices excluded from the ciunl-ex-drow. Interval placement of right-sided chest tube, projecting [...] Ka,r in mGy = 0 DAP = 0NormOur Lady of Mercy HospitalXR Chest Single ViewExam Date/Time: 05/16/2024 22:03 EDT Reason for Exam: [...] narrowing of the right acromiohumeral interval, with afez-sg-ydbv contact of the humeral head and acromion, consistent with chronic rotator cuff tearing with rotator cuff arthropathy. Ordering Provider: Kenney Arias FINAL REPORT Dictated: 05/17/2024 10:38 am Rahul Santana MD Signed (Electronic Signature): 05/17/2024 10:38 am Signed by: Rahul Santana MD Transcribed by: [place] Technologist: CHRISTIN Technical Comments Radiation Dose: Ka,r in mGy = . DAP = .[facility] HospitalXR Chest Single viewon 05-17-2024 EXAMINATION: XR CHEST AP OR PA 1 [...] probable basilar components. Stable aeration. MACRO: None Clare Bagley MD - 05/17/2024 EXAMINATION: XR CHEST AP [...] probable basilar components. Stable aeration. MACRO: None MetroHealthRadiology Study observation (narrative)MetroHealthXR Chest Single viewOrdered By: Clare Choe on 17-90-4133BqqskIrtahr Work Phone: XR FEMUR RIGHT MINIMUM 2 VIEWSon 31-69-1130OA FEMUR RIGHT MINIMUM 2 VIEWSNormalThe MetroHealth SystemXR HIP RIGHT W/ PELVIS MIN 2-3 VIEWSon 42-34-7897OB HIP RIGHT W/ PELVIS MIN 2-3 VIEWSNormalThe MetroHealth SystemXR INLET-OUTLET + JUDETS 4 OR MORE VIEWSon 00-56-2944BQ INLET-OUTLET + JUDETS 4 OR MORE VIEWSNormalThe [facility] CenterroHealth SystemABSCon 37-07-4797CLIT Gel InterpNegativeNormalOhio State East HospitalComment on above:Performed By: #### [id number] #### [facility] [address], [place] [address]KWLOD BANKOrdered By: Iqra Ramos on 66-75-3119MJE/Rh InterpPositiveInvalid Interpretation CodeLA[facility]IDE [facility] BB SubsectionABSC Gel Interp Negative (05/16/24 9:58 PM)NormalLAKESIDE WOMEN'S [facility] [place] BB SubsectionBMPon 09-95-1474Nsgww gap [Moles/Vol]15 mmol/LNormal02-14Ohio State East HospitalComment on above:Performed By: #### [id number] #### [facility] [address], [place] [address]Okfmjno [Mass/Vol]9.5 mg/dLNormal8.9-11.1FTrumbull Regional Medical CenterComment on above:Performed By: #### [id number] #### [facility] [address], [place] [address]Ymfsjnyf [Moles/Vol]92 mmol/DQmz065-728KoghroOhio State East HospitalComment on above:Performed By: #### [id number] #### [facility] [address], [place] [address]GA2 [Moles/Vol]23 mmol/DIjiogl57-92CypfmtOhio State East Hospital Comment on above:Performed By: #### [id number] #### [facility] [address], [place] [address]Ssnwoqolry [Mass/Vol]0.8 mg/dLNormal0.5-1.3FTrumbull Regional Medical CenterComment on above:Performed By: #### [id number] #### [facility] [address], [place] [address]Orolysl [Mass/Vol]143 mg/yHByigxx26-787BbitwcOhio State East HospitalComment on above:Performed By: #### [id number] #### [facility] [address], [place] [address]Koxegzstd [Moles/Vol]3.8 mmol/LNormal3.5-5.3FTrumbull Regional Medical CenterComment on above:Performed By: #### [id number] #### [facility] [address], [place] [address]Qnqbrf [Moles/Vol]126 mmol/TBzm457-296XagkuqOhio State East HospitalComment on above:Performed By: #### [id number] #### [facility] [address], [place] [address]Nxch nitrogen [Mass/Vol]20 mg/dLNormal5-21[facility] State East HospitalComment on above:Performed By: #### [id number] #### [facility] [address], [place] [address]Nepg nitrogen/Creatinine [Mass ratio]25 No UdyvkYfcu37-96PcbbzcOhio State East HospitalComment on above:Performed By: #### [id number] #### [facility] [address] [place] [address]HUR w/ Auto Diffon 36-20-4063Dimnpxqhe/100 WBC (Bld)0.4 %Normal 0.0-2.0[facility] State East HospitalComment on above:Performed By: #### [id number] #### [facility] [address] [place] [address]Bvjygcrkv/Leukocytes Auto (Bld) [Pure # fraction]0.1 E9/LNormal 0.0-0.2FTrumbull Regional Medical CenterComment on above:Performed By: #### [id number] #### [facility] [address] [place] [address]Dmcvygppfvq (Bld) [#/Vol]0.5 E9/LNormal0.0-0.5FTrumbull Regional Medical CenterComment on above:Performed By: #### [id number] #### [facility] [address] [place] [address]Kvabhsljobt/100 WBC (Bld)3.0 %Normal0.0-8.0[facility] East HospitalComment on above:Performed By: #### [id number] #### [facility] [address] [place] [address]Hyhsilyywta distribution width (RBC) [Ratio]13.1 %Normal 10.9-14.2FTrumbull Regional Medical CenterComment on above:Performed By: #### [id number] #### [facility] [address] [place] [address]Pmuoyiugkv (Bld) [Volume fraction]41.1 %Ujdsks17.7-49.0[facility] HospitalComment on above:Performed By: #### [id number] #### [facility] [address] [place] [address]Zawrkgjzbh (Bld) [Mass/Vol]14.0 g/qOFvlycq50.5-17.5FTrumbull Regional Medical CenterComment on above:Performed By: #### [id number] #### [facility] [address] [place] [address]Bbrcavdppjs (Bld) [#/Vol]1.5 E9/LNormal1.0-4.0[facility] East HospitalComment on above:Performed By: #### [id number] #### [facility] [address] [place] [address]Umcjhpyuxtu/100 WBC (Bld)8.6 %Low14.0-50.0[facility] HospitalComment on above:Performed By: #### [id number] #### [facility] [address] [place] [address]UVP (RBC) [Entitic mass]33.7 wlHatpsu54.0-34.0[facility] HospitalComment on above:Performed By: #### [id number] #### [facility] [address] [place] [address]FMOO (RBC) [Mass/Vol]34.2 g/xZAfouyz53.4-36.0[facility] HospitalComment on above:Performed By: #### [id number] #### [facility] [address] [place] [address]ZDA (RBC) [Entitic vol]98.5 mBJxjryu04.0-100.0[facility] HospitalComment on above:Performed By: #### [id number] #### [facility] [address] [place] [address]Vhtrsuijb (Bld) [#/Vol]0.7 E9/LNormal0.2-1.0[facility] HospitalComment on above:Performed By: #### [id number] #### [facility] [address] [place] [address]Vfkisacollw (Bld) [#/Vol]14.5 E9/LHigh2.0-7.5FTrumbull Regional Medical CenterComment on above:Performed By: #### [id number] #### [facility] [address], [place] [address]Qyucsvfxqwz/100 WBC (Bld)83.7 %High36.0-75.0[facility] HospitalComment on above:Performed By: #### [id number] #### [facility] [address], [place] [address]Xbidjwzm482.0 E9/QYaryuf158.0-500.0[facility] Comment on above:Performed By: #### [id number] #### [facility] [address], [place] [address]Otvwaeam mean volume (Bld) [Entitic vol]6.3 fLLow6.4-10.8[facility] HospitalComment on above:Performed By: #### [id number] #### [facility] [address], [place] [address]XSD (Bld) [#/Vol]4.2 E12/LLow4.3-5.9[facility] Comment on above:Performed By: #### [id number] #### [facility] [address] [place] [address]KYM corrected for nucl RBC Auto (Bld) [#/Vol]17.3 E9/LHigh 4.0-11.0[facility] East HospitalComment on above:Result Comment: Peripheral smear review performed.Performed By: #### [id number] #### [facility] [address], [place] [address]FBITLMBJLHimbiax By: SYSTEM SYSTEM on 53-90-6026Jsowaon [Mass/Vol]4.4 g/dLNormal3.3 - 5.0 gm/dLRemisol ChemAlbumin/Globulin [Mass ratio] 1.7 {ratio}Normal1.1 - 2.2Remisol ChemALP [Catalytic activity/Vol]62 [iU]/d Tqklnj15 - 98 Int._Unit/LRemisol ChemALT No additional P-5'-P [Catalytic activity/Vol]23 [iU]/dNormal6 - 46 Int._Unit/LRemisol ChemAnion gap [Moles/Vol] 15 mmol/LNormal6 - 16 mEq/LRemisol ChemAST [Catalytic activity/Vol]34 [iU]/d Normal5 - 43 Int._Unit/LRemisol ChemBilirubin [Mass/Vol]0.3 mg/dLNormal0.0 - 1.1 mg/dLRemisol ChemBilirubin.direct [Mass/Vol]0.1 mg/dLNormal0.0 - 0.4 mg/dL Remisol ChemBilirubin.indirect [Mass or moles/Vol]0.2 mg/dLNormal0.1 - 0.9 mg/dL Remisol ChemCalcium [Mass/Vol]9.5 mg/dLNormal8.9 - 11.1 mg/dLRemisol Chem Chloride [Moles/Vol]92 mmol/CJag198 - 111 mmol/LRemisol ChemCO2 [Moles/Vol]23 mmol/FMndkno06 - 31 mmol/LRemisol ChemCreatinine [Mass/Vol]0.8 mg/dLNormal0.5 - 1.3 mg/dLRemisol DroptSFR30 mL/min/1.73 a7Tfvvcx>=59mL/min/1.73 f7Vktwgzu Chem Ethanol Lvl18 mg/dLHigh<=11mg/dLRemisol ChemGlobulin (S) [Mass/Vol]2.6 g/dL Normal1.4 - 4.0 gm/dLRemisol ChemGlucose [Mass/Vol]143 mg/jHHvmejj68 - 199 mg/dL Remisol ChemLactic Acid Lvl2.5 mmol/LHigh0.5 - 2.2 mmol/LRemisol ChemLipase [Catalytic activity/Vol]40 U/ENkgwut27 - 58 unit/LRemisol ChemPotassium [Moles/Vol]3.8 mmol/LNormal3.5 - 5.3 mmol/LRemisol ChemProtein [Mass/Vol]7.0 g/dLNormal6.0 - 7.8 gm/dLRemisol ChemSodium [Moles/Vol]126 mmol/GJot646 - 145 mmol/LRemisol ChemTroponin HS5.40 pg/mLLow15.90 - 38.40 pg/mLRemisol ChemComment on above:Interpretive Data: The 95% CI (Confidence Interval) PPV (Positive Predictive Value) for myocardial infarction in females is 38 pg/mL, in males 51 pg/mL. The results should be used in conjunction withclinical conditions of myocardial infarction. (Access High Sensitivity Troponin I Instructions For Use, Kenyetta Aidan, April 2018)Urea nitrogen [Mass/Vol]20 mg/dLNormal5 - 21 mg/dLRemisol ChemUrea nitrogen/Creatinine [Mass ratio]25 mg/hrQosh16 - 20Remisol ChemCOAGULATION Ordered By: Iqra Rmaos on 70-10-6094qQMC Coag (PPP) [Time]29.9 cCoseoa49.1 - 36.5 second(s)[facility] Auto CoagComment on above:Interpretive Data: Parameter 15 days - 4 weeks 1 - 5 months 6 - 11 months 1 - 5 years 6 - 10 years 11 - 17 years PTT Mean: 35.4 (27.6-45.6) Mean: 33.5 (24.8-40.7) Mean: 32.4 (25.1-40.7) Mean: 31.6 (24.0-39.2) Mean: 31.6 (26.9-38.7) Mean: 31.0 (24.6-38.4) Pediatric Reference ranges were obtained from a study by Judson Posey et al. prepared from 1437 samples obtained at 7 different centers using the same coagulation reagent and instrumentation as [facility]. Currently there are no coagulation studies available worldwide for children to 14 days, andno normal ranges. Heparin therapeutic range (represented by Anti-Factor Xa activity of 0.2 - 0.4 U/mL) corresponds to PTT of 56.6 - 109.0 sec.INR Coag (PPP) [Relative time]0.83 {INR}Invalid Interpretation CodeLAKESIDE WOM[facility] [place] Auto CoagComment on above:Interpretive Data: INR results are specifically intended to assess patients stabilized on long-term Anticoagulation therapy suggested INR s Less Intensive Anticoagulation 2.0 3.0 Conventional Range 3.0 4.5PT Coag (PPP) [Time]9.3 sLow9.4 - 12.5 second(s)[facility] Auto CoagComment on above:Interpretive Data: 15 days - 4 weeks 1 - 5 months 6 -11 months 1 5 years 6 10 years 11 -17 years Mean: 11.2 (9.5 12.6) Mean: 11.0 (9.7 12.8) Mean: 11.0 (9.8 13.0) Mean: 11.3 (9.9 13.4) Mean: 11.7 (10.0 14.6) Mean: 11.8 (10.0 - 14.1) Pediatric Reference ranges were obtained from a study by sue Bowers al. prepared from 1437 samples obtained at 7 different centers using the same coagulation reagent and instrumentation as [facility]. Currently there are no coagulation studies available worldwide for children to 14 days, andno normal ranges.ED Note-Physicianon 84-85-3734W[place] Note-PhysicianED Note-Physician Basic Information Time Seen: Ludmila Leach DOWojciech 05/16/2024 21:59 History of Present Illness HPI: [...] diminished compared to the left. Paradoxical movement ofthe right lower anterior ribs. Abd: Soft and [...] and Complexity of Problems Differential Diagnosis: [] [facility] Data External documents reviewed: N/A My EKG [...] he recommended the patient be transferred by [facility] to [facility] for further trauma care. Shared decision making: As above Code status: N/A Assessment/Plan Closed head injury (S09.90XA: Unspecified injury of head, initial encounter) Hyponatremia (E87.1: Hypo-osmolality and hyponatremia) Pneumothorax (J93.9: Pneumothorax, unspecified) Rib fractures (S22.49XA: Multiple fractures of ribs, unspecified side, initial encounter for closedfracture) Orders: HYDROmorphone, 0.5 mg = 0.5 mL, Injection, IV Push, Once, Stop date 05/16/24 22:07:00 EDT, Start date 05/16/24 22:07:00 EDT XR Chest Single View Medications Administered Given MLDE7ECA [F], 0.5 mg, IV Push BMDU6FYU [F], 0.5 mg, IV Push Disposition Plan [...] Lymph Auto: 8.6 % Low (05/16/24 21:58:00) Warren Auto: 4.3 % (05/16/24 21:58:00) Eos Auto: 3 % (05/16/24 21:58:00) Basophil Auto: 0.4 % (05/16/24 21:58:00) Neutro Absolute: 14.5 E9/L High (05/16/24 21:58:00) Lymph Absolute: 1.5 E9/L (05/16/24 21:58:00) Warren Absolute: 0.7 E9/L (05/16/24 21:58:00) Eos Absolute: 0.5 E9/L (05/16/24 21:58:00) Basophil Absolute: 0.1 E9/L (05/16/24 21:58:00) PT: 9.3 second(s) Low (05/16/24 21:58:00) INR: 0.83 (05/16/24 21:58:00) PTT: 29.9 second(s) (05/16/24 21:58:00) Glucose Lvl: 143 mg/dL (05/16/24 21:58:00) BUN: 20 mg/dL (05/16/24 21:58:00) Creatinine: 0.8 mg/dL (05/16/24 21:58:00) eGFR: 88 mL/mi (more content not included)...[facility] Comment on above:Result Comment: Electronically Signed By: Ludmila Leach DO\quintin\Date and Time Signed: 05/16/24 23:21 EDTEthanolon 18-29-7509Zyebtay Lvl18 mg/dLHigh<=11[facility] HospitalComment on above:Performed By: #### [id number] #### [facility] [address], [place] [address]GIEEIGIQBFVogwbdw By: SYSTEM SYSTEM on 54-79-9135Yzjztuass/100 WBC (Bld)0.4 %Normal0.0 - 2.0 %Remisol HemeBasophils/Leukocytes Auto (Bld) [Pure # fraction]0.1 E9/LNormal0.0 - 0.2 E9/LRemisol HemeEosinophils (Bld) [#/Vol]0.5 E9/LNormal0.0 - 0.5 E9/LRemisol HemeEosinophils/100 WBC (Bld)3.0 %Normal0.0 - 8.0 %Remisol HemeErythrocyte distribution width (RBC) [Ratio]13.1 %Nppsul12.9 - 14.2 %Remisol HemeHematocrit (Bld) [Volume fraction]41.1 %Qxsytn01.7 - 49.0 % Remisol HemeHemoglobin (Bld) [Mass/Vol]14.0 g/aASahefb68.5 - 17.5 gm/dLRemisol HemeLymphocytes (Bld) [#/Vol]1.5 E9/LNormal1.0 - 4.0 E9/LRemisol Heme Lymphocytes/100 WBC (Bld)8.6 %Low14.0 - 50.0 %Remisol HemeMCH (RBC) [Entitic mass]33.7 tfXtlydd58.0 - 34.0 pgRemisol HemeMCHC (RBC) [Mass/Vol]34.2 g/dLNormal 31.4 - 36.0 gm/dLRemisol HemeMCV (RBC) [Entitic vol]98.5 rADpiqkd02.0 - 100.0 fL Remisol HemeMonocytes (Bld) [#/Vol]0.7 E9/LNormal0.2 - 1.0 E9/LRemisol Heme Monocytes/100 WBC (Bld)4.3 %Normal4.0 - 14.0 %Remisol HemeNeutrophils (Bld) [#/Vol]14.5 E9/LHigh2.0 - 7.5 E9/LRemisol HemeNeutrophils/100 WBC (Bld)83.7 % High36.0 - 75.0 %Remisol FmqiTcafsuwb603.0 E9/VJruwxa546.0 - 500.0 E9/LRemisol HemePlatelet mean volume (Bld) [Entitic vol]6.3 fLLow6.4 - 10.8 fLRemisol Heme RBC (Bld) [#/Vol]4.2 E12/LLow4.3 - 5.9 E12/LRemisol HemeWBC corrected for nucl RBC Auto (Bld) [#/Vol]17.3 E9/LHigh4.0 - 11.0 E9/LRemisol HemeComment on above: Result Comment: Peripheral smear review performed.[facility] Fun Panelon 05-16-2024 Albumin [Mass/Vol]4.4 g/dLNormal3.3-5.0[facility] HospitalComment on above:Performed By: #### [id number] #### [facility] [address], [place] [address]Xynawsu/Globulin (S) [Mass conc ratio]1.6Ukwngc9.1-2.2[facility] [address] Psychiatric CenterComment on above:Performed By: #### [id number] #### [facility] [address], [place] [address]UNP [Catalytic activity/Vol]62 Int._Unit/GKrcjvd59-66NdtucoOhio State East HospitalComment on above:Performed By: #### [id number] #### [facility] [address], [place] [address]XFG No additional P-5'-P [Catalytic activity/Vol]23 Int._Unit/L Normal6-46[facility] HospitalComment on above:Performed By: #### [id number] #### [facility] [address], [place] [address]UFS [Catalytic activity/Vol]34 Int._Unit/LNormal5-43[facility] HospitalComment on above:Performed By: #### [id number] #### [facility] [address], [place] [address]Tultnqswz [Mass/Vol]0.3 mg/dLNormal0.0-1.1FTrumbull Regional Medical CenterComment on above:Performed By: #### [id number] #### [facility] [address] [place] [address]Wbvyspcoz.direct [Mass/Vol]0.1 mg/dLNormal0.0-0.4FTrumbull Regional Medical CenterComment on above:Performed By: #### [id number] #### [facility] [address] [place] [address]Mcdhoxebp.indirect [Mass or moles/Vol]0.2 mg/dLNormal0.1-0.9 [facility] HospitalComment on above:Performed By: #### [id number] #### [facility] [address], [place] [address]Bcoraemu (S) [Mass/Vol]2.6 g/dLNormal1.4-4.0[facility] HospitalComment on above:Performed By: #### [id number] #### [facility] [address], [place] [address]Papyqtp [Mass/Vol]7.0 g/dLNormal6.0-7.8[facility] HospitalComment on above:Performed By: #### [id number] #### [facility] [address], [place] [address]Vxywgk Acidon 91-59-7984Pfdhwc Acid Lvl2.5 mmol/LHigh0.5-2.2 [facility] HospitalComment on above:Performed By: #### [id number] #### [facility] [address], [place] [address]Zqqphf Levelon 99-96-2282Yziyrd [Catalytic activity/Vol]40 U/L Jsusqk01-44XsigoqOhio State East HospitalComment on above:Performed By: #### [id number] #### [facility] [address], [place] [address]CH & PTTon 71-70-4705tFOT Coag (PPP) [Time]29.9 second(s)Normal 25.1-36.5FTrumbull Regional Medical CenterComment on above:Result Comment: Parameter 15 days - 4 weeks 1 - 5 months 6 - 11 months 1 - 5 years 6 - 10 years 11 - 17 years PTT Mean: 35.4 (27.6-45.6) Mean: 33.5 (24.8-40.7) Mean: 32.4 (25.1-40.7) Mean: 31.6 (24.0-39.2) Mean: 31.6 (26.9-38.7) Mean: 31.0 (24.6-38.4) Pediatric Reference ranges were obtained from a study by Judson Posey et al. prepared from 1437 samples obtained at 7 different centers using the same coagulation reagent and instrumentation as [facility]. Currently there are no coagulation studies available worldwide for children to 14 days, andno normal ranges. Heparin therapeutic range (represented by Anti-Factor Xa activity of 0.2 - 0.4 U/mL) corresponds to PTT of 56.6 - 109.0 sec.Performed By: #### [id number] #### [facility] [address], [place] [address]RQB Coag (PPP) [Relative time]0.83 {INR}Invalid Interpretation CodeOhio State East HospitalComment on above:Result Comment: INR results are specifically intended to assess patients stabilized on long-term Anticoagulation therapy suggested INR?s ?Less Intensive Anticoagulation? 2.0 ? 3.0 Conventional Range 3.0 ? 4.5Performed By: #### [id number] #### [facility] [address], [place] [address]JR Coag (PPP) [Time]9.3 second(s)Low9.4-12.5Fmagdaleno Brook Lane Psychiatric CenterComment on above:Result Comment: 15 days - 4 weeks 1 - 5 months 6 -11 months 1 ? 5 years 6 ? 10 years 11 -17 years Mean: 11.2 (9.5 ? 12.6) Mean: 11.0 (9.7 ? 12.8) Mean: 11.0 (9.8 ? 13.0) Mean: 11.3 (9.9 ? 13.4) Mean: 11.7 (10.0 ? 14.6) Mean: 11.8 (10.0 - 14.1) Pediatric Reference ranges were obtained from a study by Judson Posey et al. prepared from 1437 samples obtained at 7 different centers using the same coagulation reagent and instrumentation as [facility]. Currently there are no coagulation studies available worldwide for children to 14 days, andno normal ranges.Performed By: #### [id number] #### [facility] [address], [place] [address]Qpazycseyf 18-88-7748Ueevdcwi HS5.40 pg/mLLow15.90-38.40Ohio State East HospitalComment on above:Result Comment: The 95% CI (Confidence Interval) PPV (Positive Predictive Value) for myocardial infarction in females is 38 pg/mL, in males 51 pg/mL. The results should be used in conjunction with clinical conditions of myocardial infarction. (Access High Sensitivity Troponin I Instructions For Use, Kenyetta Aidan, April 2018)Performed By: #### [id number] #### [facility] [address], [place] [address]hHNAls 38-41-2854nBRD64 mL/min/1.73 c6Ppihvf>=59Ohio State East HospitalComment on above:Order Comment: Order added by Discern Expert. Performed By: #### [id number] #### [facility] [address], [place] [address]QO CHEST 2 Von [id number] CHEST 2 VEXAM: XR CHEST 2 V HISTORY: Atherosclerosis of [...] Electronically authenticated by: YINA PAINTER Date: 2022-10-22 16:[address] [place] [address] W MANUAL DIFFon [id number] LYMPH #NormalAdena Health SystemComment on above:Performed By: #### SMITA #### [facility] [address] [place] [address] Dr. Aixa SlaughterICAL LYMPH %NormalAdena Health SystemComment on above: Performed By: #### SMITA #### [facility] [address] [place] [address] Dr. Aixa Costa #Normal0.0-0.3The [facility]al HospitalComment on above: Performed By: #### SMITA #### [facility] [address] [place] [address] Dr. Aixa Costa %Normal0-5The [facility]al HospitalComment on above:Performed By: #### SMITA #### [facility] [address] [place] [address] Dr. Aixa Muñiz #0.00 103/ulNormal0.00-0.10The [facility] HospitalComment on above:Performed By: #### CBCTILA #### [facility] [address] [place] [address] Dr. Aixa Muñiz %0.0 %Critically low0.2-2.0Adena Health SystemComment on above:Performed By: #### CBCMAN #### [facility] [address] [place] [address] Dr. Aixa Castaneda #NormalOhio State Health System HospitalComment on above:Performed By: #### CBCTILA #### [facility] [address] [place] [address] Dr. Aixa ArguelloBLAST %NormalThe [facility]al HospitalComment on above:Performed By: #### CBCTILA #### [facility] [address] [address] [address] Aixa ArguelloCORRECTED WBCNormal4.0-11.0Adena Health SystemComment on above: Performed By: #### CBCMAN #### [facility] [address] [address] [address] Aixa Carr #0.77 103/ulCritically high0.00-0.70[facility] Comment on above:Performed By: #### CBCTILA #### [facility] [address] [address] [address] Aixa Carr%12.0 %Critically high0.9-7.0The [facility] HospitalComment on above:Performed By: #### CBCTILA #### [facility] [address] [address] [address] Aixa ArguelloHCT53.2 %Owlosq66.0-54.0Adena Health SystemComment on above: Performed By: #### CBCTILA #### [facility] [address] [place] [address] Dr. Aixa ArguelloHGB17.0 g/bcHqwpwu86.0-18.0Adena Health SystemComment on above: Performed By: #### CBCTILA #### [facility] [address] [address] [address] Aixa Wells #0.70 103/ulCritically low1.20-3.80The [facility] Comment on above:Performed By: #### CBCMAN #### [facility] [address] [address] [address] Aixa Wells%11.0 %Critically low20.5-60.0The [facility]al HospitalComment on above:Performed By: #### CBCMAN #### [facility] [address] [address] [address] Aixa NelsonROCYTOSISSLIGHTNoSelect Medical [facility] Clinic Rehabilitation Hospital, AvonComment on above: Performed By: #### CBCTILA #### [facility] [address] [place] [address] Dr. Aixa HooperH32.0 zkQslezq66.9-34.0The [facility] on above: Performed By: #### SMITA #### [facility] [address] [place] [address] Dr. Aixa HooperHC32.0 g/ozVdyzzw97.9-35.2The [facility]al HospitalComment on above:Performed By: #### SMITA #### [facility] [address] [place] [address] Dr. Aixa HooperV100.0 fLCritically high80.0-94.0The [facility] HospitalComkal[facility] on above:Performed By: #### SMITA #### [facility] [address] [place] [address] Dr. Aixa Degroot #NormalThe [facility] Behavioral HospitalComment on above: Performed By: #### SMITA #### [facility] [address] [place] [address] Dr. iAxa BraunOCYTE %NormalThe [facility] on above: Performed By: #### SMITA #### [facility] [address] [place] [address] Dr. Aixa Pierce#0.51 103/ulNormal0.30-0.80The [facility] on above:Performed By: #### SMITA #### [facility] [address] [place] [address] Dr. Aixa Pierce%8.0 %Normal1.7-12.0The [facility] HospitalComkal[facility] on above: Performed By: #### SMITA #### [facility] [address] [place] [address] Dr. Aixa WalterV8.4 fLCritically low9.5-13.5The [facility] HospitalComkal[facility] on above:Performed By: #### SMITA #### [facility] [address] [place] [address] Dr. Aixa Dhillon #NormalThe Orchard HospitalComment on above:Performed By: #### SMITA #### [facility] [address] [place] [address] Dr. Aixa LockeOCYTE %NormalThe [facility]al HospitalComment on above:Performed By: #### SMITA #### [facility] [address] [place] [address] Dr. Aixa ArguelloNRBCNormalThe [facility]al HospitalComment on above:Performed By: #### SMITA #### [facility] [address] [place] [address] Dr. Aixa MejiasT195 103/prVcsbpt566-304Gdd [facility] HospitalComment on above: Performed By: #### SMITA #### [facility] [address] [place] [address] Dr. Aixa ChandC5.32 106/ulNormal4.70-6.10The [facility]al HospitalComment on above:Performed By: #### SMITA #### [facility] [address] [place] [address] Dr. Aixa RosalesW13.7 %Zoiitm72.0-15.0The [facility]al HospitalComment on above: Performed By: #### SMITA #### [facility] [address] [place] [address] Dr. Aixa Grewal #4.42 103/ulNormal1.40-6.50The [facility]al HospitalComment on above:Performed By: #### SMITA #### [facility] [address] [place] [address] Dr. Aixa Grewal %69.0 %Hzgqtv86.0-75.0The [facility]al HospitalComment on above: Performed By: #### SMITA #### [facility] [address] [place] [address] Dr. Aixa SidhuBC6.4 103/ulNormal4.0-11.0The [facility]al HospitalComment on above: Performed By: #### SMITA #### [facility] [address] [place] [address] Dr. Aixa Hayes PROFILEon [id number]-HDL RATIO NORMSSouthern Ohio Medical CenterComment on above:Result Comment: 3.3 - 4.4 LOW RISK 4.4 - 7.1 AVERAGE RISK 7.1 - 11.0 MODERATE RISK >11.0 HIGH RISKPerformed By: #### LIPID, TSH, BMP #### [facility] [address] [place] [address] Dr. Aixa ArguelloCholesterol [Mass/Vol]158 mg/dLNormal<=200[facility] Comment on above:Performed By: #### LIPID, TSH, BMP #### [facility] [address] [place] [address] Dr. Aixa Chilelesterol in HDL [Mass/Vol]79 mg/dLCritically tyyb32-79UllAdena Health SystemComment on above:Performed By: #### LIPID, TSH, BMP #### [facility] [address] [place] [address] Dr. Aixa Chilelesterol in LDL [Mass/Vol]53.0 mg/dLRiverview Health InstituteComment on above:Performed By: #### LIPID, TSH, BMP #### [facility] [address] [place] [address] Dr. Aixa Hayes.total/Cholesterol in HDL [Mass ratio]2.0 {ratio} NormalAdena Health SystemComment on above:Performed By: #### LIPID, TSH, BMP #### [facility] [address] [place] [address] Dr. Aixa Meneses NORMAL> or = 60 mg/dl - LOW CARDIOVASCULAR RISK <40 mg/dl - HIGH CARDIOVASCULAR RISKRiverview Health InstituteComment on above:Performed By: #### LIPID, TSH, BMP #### [facility] [address] [place] [address] Dr. Aixa Oconnor CALC NORMALSEE [facility] Hospital [facility] ColumbusComment on above:Result Comment: <100 mg/dl OPTIMAL 100 - 129 mg/dl NEAR OR ABOVE OPTIMAL 130 - 159 mg/dl BORDERLINE HIGH 160 - 189 mg/dl HIGH >190 mg/dl VERY HIGH Performed By: #### LIPID, TSH, BMP #### [facility] [address] [place] [address] Dr. Aixa ArguelloTriglyceride [Mass/Vol]130 mg/dLNormal<=150The [facility] Comment on above:Performed By: #### LIPID, TSH, BMP #### [facility] [address] [place] [address] Dr. Aixa ArguelloVLDL CALC26.0 mg/dLNormalThe [facility] HospitalComment on above: Performed By: #### LIPID, TSH, BMP #### [facility] [address] [place] [address] Dr. Aixa ArguelloPROF CHEM 8 (BAS METB)on 29-02-4953Oveqw gap [Moles/Vol]9.0 mmol/LNormalThe [facility] HospitalComment on above:Performed By: #### LIPID, TSH, BMP #### [facility] [address] [place] [address] Dr. Aixa ArguelloCalcium [Mass/Vol]9.7 mg/dLNormal8.5-10.1[facility] Comment on above:Performed By: #### LIPID, TSH, BMP #### [facility] [address] [place] [address] Dr. Aixa ArguelloChloride [Moles/Vol]94 mmol/LCritically kka11-654Imn [facility] HospitalComment on above:Performed By: #### LIPID, TSH, BMP #### [facility] [address] [place] [address] Dr. Aixa ArguelloCO2 [Moles/Vol]34.9 mmol/LCritically high21.0-32.0The [facility] HospitalComment on above:Performed By: #### LIPID, TSH, BMP #### [facility] [address] [place] [address] Dr. Aixa ArguelloCreatinine [Mass/Vol]1.11 mg/dLNormal0.70-1.30The [facility] HospitalComment on above:Performed By: #### LIPID, TSH, BMP #### [facility] [address] [address] [address] Aixa NicolasGFR-AF SAUDI ARABIAN>60Normal>=60The [facility]al HospitalComment on above:Performed By: #### LIPID, TSH, BMP #### [facility] [address] [place] [address] Dr. Aixa NioclasGFR-NON AF SAUDI ARABIAN>60Normal>=60The [facility]al HospitalComment on above:Performed By: #### LIPID, TSH, BMP #### [facility] [address] [place] [address] Dr. Aixa ArguelloGlucose [Mass/Vol]86 mg/tQGovtyk87-754Rws [facility] Comment on above:Performed By: #### LIPID, TSH, BMP #### [facility] [address] [place] [address] Dr. Aixa ArguelloPotassium [Moles/Vol]4.9 mmol/LNormal3.5-5.1The [facility] Comment on above:Performed By: #### LIPID, TSH, BMP #### [facility] [address] [place] [address] Dr. Aixa ArguelloSodium [Moles/Vol]133 mmol/LCritically wit448-877Tif [facility] HospitalComkalamazoo psychiatric hospital on above:Performed By: #### LIPID, TSH, BMP #### [facility] [address] [place] [address] Dr. Aixa ArguelloUrea nitrogen [Mass/Vol]15.0 mg/dLNormal7.0-18.0The [facility] HospitalComment on above:Performed By: #### LIPID, TSH, BMP #### [facility] [address] [place] [address] Dr. Aixa ArguelloUrea nitrogen/Creatinine [Mass ratio]13.5 mg/mgNormalThe [facility] HospitalComment on above:Performed By: #### LIPID, TSH, BMP #### [facility] [address] [place] [address] Dr. Aixa Osborn 23-52-0349IWF1.357 uIU/mLNormal0.358-3.740The [facility] HospitalComment on above:Performed By: #### LIPID, TSH, BMP #### [facility] [address] [place] [address] Dr. Aixa Arguello Vital Signs Date TimeVital SignValuePerforming KfxsglrebNperiybq29-60-7502 23:30-0400 Diastolic blood mm[Hg]Ludmila Haylee [address] [place], [place] 9900809-15-2024 23:30-0400Heart rate91 /minNoah Haylee [address] [place], [place] 9900809-15-2024 23:30-0400Mean blood vhszoomx29 mm[Hg]Ludmila Haylee [address] [place], [place] 9900809-15-2024 23:30-0400 Respiratory rate19 /minNoah Haylee [address] [place], [place] 9900809-15-2024 23:30-2193KzB4% (BldA) [Mass fraction]94 %Ludmila Haylee [address]09-15-2024 23:30-0400 Systolic blood kijrtpvt931 mm[Hg]Ludmila Haylee [address]09-15-2024 23:15-0400 Diastolic blood ydzbekpi78 mm[Hg]Ludmila Haylee [address]09-15-2024 23:15-0400Heart rate89 /minNoah Haylee [address] [place], [place] 9900809-15-2024 23:15-0400Mean blood dsmjppez22 mm[Hg]Ludmila Haylee [address] [place], [place] 9900809-15-2024 23:15-0400 Respiratory rate27 /minNoah Haylee [address] [place], [place] 9900809-15-2024 23:15-1454IsW3% (BldA) [Mass fraction]92 %Ludmila Haylee [address]09-15-2024 23:15-0400 Systolic blood zfnajetx337 mm[Hg]Ludmila Haylee [address] [place], [place] 70[address]809-15-2024 23:00-0400 Diastolic blood kjlelced94 mm[Hg]Ludmila Haylee [address]09-15-2024 23:00-0400Heart rate92 /minNoah Haylee [address]09-15-2024 23:00-0400Mean blood dvbhqxeq072 mm[Hg]Ludmila Haylee [address] [place], [place] 99[address]809-15-2024 23:00-0400 Respiratory rate21 /minNoah Haylee [address] [place], [place] 9900809-15-2024 23:00-0400 Systolic blood hvznytjj352 mm[Hg]Ludmila Haylee [address]09-15-2024 22:15-0400Heart rate85 /minNoah Haylee [address] [place], [place] 9900809-15-2024 22:15-0400 Respiratory rate22 /minNoah Haylee [address] [place], [place] 9900809-15-2024 22:05-0400Body ixzyqdmtjdt67.34 [degF]Ludmila Haylee [address] [place], [place] 7077809-15-2024 22:05-0400Heart rate87 /minNoah Haylee [address] [place], [place] 7077809-15-2024 22:05-0400 Respiratory rate24 /minNoah Haylee [address] [place], [place] 7077809-15-2024 21:50-0400Body biijutlzjcm49.8 [degF]Ludmila Haylee [facility]09-15-2024 21:50-0400Heart rate93 /Deangelo Haylee [facility]04-12-2024 13:56-0400Body mcyhnc566.72 [facility] 13:56-0400Body mass index (BMI) [Ratio]25 kg/t4PjxwbunokKettering Health [facility] Campus04-12-2024 13:56-0400Body naxghl49.5 kgK[facility]04-12-2024 13:56-0400Diastolic blood yxbuhyke35 mm[Hg][facility] 12-12-2023 13:56-0400Heart rate82 /[facility] 12-12-2023 13:56-0400Respiratory rate20 /[facility] 12-12-2023 13:56-0400Systolic blood oymqeodq206 mm[Hg][facility]10-11-2023 15:30-0400Body jnykvs222.72 cmBenjamin Ball Other [facility] [employer] Other 640901-56-0384 15:30-0400Body mass index (BMI) [Ratio] 24.33 kg/m6Txcktpua Ball Other [facility] [employer] Other 820162-06-1706 15:30-0400Body .58 kgBenjamin Ball Other [employer] Other 10-11-2023 15:30-0400Diastolic blood mm[Hg] Dony Ball Other [employer] Other 718038-89-4738 15:30-0400Respiratory rate20 /minBenjamin Ball Other [employer] Other 546943-51-6592 15:30-0400Systolic blood pctotrfw995 mm[Hg] Dony Ball Other [employer] Other 10-11-2023 14:30-0400Body fzyypy917.72 cmBenjamin Ball Other [employer] Other 10-11-2023 14:30-0400Body mass index (BMI) [Ratio] 24.33 kg/j5Tnfvgnrh Ball Other [employer] Other 10-11-2023 14:30-0400Body .58 kgBenjamin Ball Other [employer] Other 10-11-2023 14:30-0400Diastolic blood odlalhol45 mm[Hg] Dony Ball Other [employer] Other 10-11-2023 14:30-0400Respiratory rate20 /minBenjamin Ball Other [employer] Other 10-11-2023 14:30-0400Systolic blood rugetahk240 mm[Hg] Dony Ball Other [employer] Other 07-11-2023 13:45-0400Body ijdvfg059.72 cmBenjamin Ball Other [employer] Other 07-11-2023 13:45-0400Body mass index (BMI) [Ratio] 23.08 kg/n5Eswyqhcm Ball Other [employer] Other 07-11-2023 13:45-0400Body atjcxt55.86 kgBenjamin Ball Other [employer] Other 07-11-2023 13:45-0400Diastolic blood oofumuao80 mm[Hg] Dony Ball Other [employer] Other 07-11-2023 13:45-0400Respiratory rate20 /minBenjamin Ball Other [employer] Other 07-11-2023 13:45-6961DoC1% (BldA) [Mass fraction]94 % Dony Ball Other [employer] Other 07-11-2023 13:45-0400Systolic blood iinqbwrs174 mm[Hg] Dony Ball Other [employer] Other 04-10-2023 16:30-0400Body vhrify448.72 cmBenjamin Ball Other [employer] Other 04-10-2023 16:30-0400Body mass index (BMI) [Ratio] 24.69 kg/v9Asgaqivy Ball Other [employer] Other 04-10-2023 16:30-0400Body ochaic86.66 kgBenjamin Ball Other [employer] Other 04-10-2023 16:30-0400Diastolic blood mm[Hg] Dony Ball Other [employer] Other 04-10-2023 16:30-0400Respiratory rate20 /minBenjamin Ball Other [employer] Other 04-10-2023 16:30-0400Systolic blood xjikbljg633 mm[Hg] Dony Ball Other [employer] Other 01-10-2023 16:00-0500Body sbacpa689.72 cmBenjamin Ball Other [employer] Other 01-10-2023 16:00-0500Body mass index (BMI) [Ratio]24.6 kg/z4Ucnneoyh Ball Other [employer] Other 01-10-2023 16:00-0500Body .39 kgBenjamin Ball Other [employer] Other 01-10-2023 16:00-0500Diastolic blood woqgkkxg80 mm[Hg] Dony Ball Other [employer] Other 01-10-2023 16:00-0500Respiratory rate20 /minBenjamin Ball Other [employer] Other 01-10-2023 16:00-7581HyF9% (BldA) [Mass fraction]90 % Dony Ball Other [employer] Other 01-10-2023 16:00-0500Systolic blood cqgeoaua291 mm[Hg] Dony Ball Other [employer] Other Encounters Encounter DateEncounter TypeCare ProviderFacilityStart: 08-18-2024 End: 75-33-3722shjrvrftsiXgdgsqx A RitterFacility:FTMCStart: 08-18-2024 End: 43-16-2946Wgjkgsn encounter procedureKaitlin A Ritter [facility] Start: 06-10-2024 End: 25-46-8557Qmbwbjbmmp and management of inpatientJustin Laura MENA Work Phone: [facility] RadiologyStart: 06-09-2024 End: 40-87-9530Jsmziwwjuu and management of inpatientDebbistdaisy Baca MD Work Phone: [facility] RadiologyComment on above:ArrivedStart: 06-08-2024 End: 03-07-7921Oetibewnmg and management of inpatientDebbistdaisy Baca MD Work Phone: [facility] RadiologyComment on above:ArrivedStart: 06-08-2024 End: 43-50-5674Rfkmfrrrhr and management of inpatientNOAH [facility] Facility:[facility]ENTERHealthStart: 06-06-2024 End: 33-66-3118Auhojxygge and management of inpatientJustin Laura MENA Work Phone: [facility] RadiologyComment on above:ArrivedStart: 06-06-2024 End: 49-48-7630Kxxumerikv and management of inpatientDebbistdaisy Baca MD Work Phone: [facility] Radiology CTComment on above:ArrivedStart: 06-05-2024 End: 70-63-0408Kjkkkntasr and management of inpatientDebbistdaisy Baca MD Work Phone: [facility] RadiologyComment on above:ArrivedStart: 06-04-2024 End: 85-81-6699Pzfamdfbxq and management of inpatientDebbistdaisy Baca MD Work Phone: [facility] RadiologyComment on above:ArrivedStart: 06-03-2024 End: 27-43-0561Cqutjcikpx and management of inpatientDebbistin Laura MENA Work Phone: [facility] RadiologyStart: 06-02-2024 End: 23-84-9668Usdpuvxhgs and management of inpatientDebbistdaisy Baca MD Work Phone: [facility] RadiologyComment on above:ArrivedStart: 06-01-2024 End: 80-37-0790Zgzczgdadp and management of inpatientGirish Baca MD Work Phone: [facility] Radiology CTComment on above:ArrivedStart: 06-01-2024 End: 98-97-8932Tztbrkiuil and management of inpatientJustin Laura MENA Work Phone: [employer] RadiologyComment on above:ArrivedStart: 05-31-2024 End: 34-36-3167Uzazzcjyiu and management of inpatientJustin Laura MENA Work Phone: [facility] [employer] [facility] RadiologyComment on above:ArrivedStart: 05-30-2024 End: 81-45-8156Xilgldykms and management of inpatientJustin Laura MENA Work Phone: [employer] Radiology CTComment on above:ArrivedStart: 05-30-2024 End: 43-25-0655Ignkytlkwl and management of inpatientJustin Laura MENA Work Phone: [facility] RadiologyComment on above:ArrivedStart: 05-29-2024 End: 40-52-3658Yhfjltxtzt and management of inpatientJustin Laura MENA Work Phone: [facility] Radiology CTComment on above:ArrivedStart: 05-29-2024 End: 73-21-4877Buicnjhukb and management of inpatientDebbistin Laura MENA Work Phone: [facility] RadiologyComment on above:ArrivedStart: 05-28-2024 End: 16-64-2586Znxjcaaqfv and management of inpatientJustin Laura MENA Work Phone: [facility] RadiologyComment on above:ArrivedStart: 05-27-2024 End: 58-98-1349Myjookbzxw and management of inpatientDebbistin Laura MENA Work Phone: [facility] RadiologyStart: 05-26-2024 End: 44-24-4349Apjpduwnof and management of inpatientDebbistin Laura MENA Work Phone: [facility] RadiologyComment on above:ArrivedStart: 2024 End: 92-07-2926Xhpikwujcx and management of inpatientDebbistin Laura MENA Work Phone: [facility] RadiologyComment on above:ArrivedStart: 41-30-2833Mqgdbayigv and management of inpatientNOAH HAYLEE Facility:[facility]ROHealthStart: 05-24-2024 End: 23-84-7657Pogepfzyha and management of inpatientJustin Laura MENA Work Phone: [facility] RadiologyComment on above:ArrivedStart: 05-23-2024 End: 92-88-3378Igrsefqplb and management of inpatientDebbistdaisy Baca MD Work Phone: [employer] RadiologyComment on above:ArrivedStart: 05-22-2024 End: 36-36-4882Wpjawqxwpd and management of inpatientDebbistdaisy Baca MD Work Phone: [facility] RadiologyComment on above:ArrivedStart: 05-21-2024 End: 34-53-5559Hgvvedizva and management of inpatientDebbistdaisy Baca MD Work Phone: [facility] RadiologyComment on above:ArrivedStart: 05-20-2024 End: 06-62-8726Tcdaeyikec and management of inpatientDebbistdaisy Baca MD Work Phone: [facility] RadiologyStart: 05-19-2024 End: 13-89-2758Nctulerrmp and management of inpatientDebbistdaisy Baca MD Work Phone: [facility] Radiology CTComment on above:ArrivedStart: 05-19-2024 End: 32-29-8326Rshkjcqxnc and management of inpatientDebbistdaisy Baca MD Work Phone: [facility] RadiologyComment on above:ArrivedStart: 05-18-2024 End: 08-08-2639Epinueznqi and management of inpatientGirish Baca MD Work Phone: [facility] RadiologyComment on above:ArrivedStart: 05-17-2024 End: 05-17-2024E.D. VisitJane ZAMUDIO, LSWMetZanesville City Hospital Social WorkComment on above:Trauma/complex Medical SituationStart: 05-17-2024 End: 64-13-2023Pbpcovlkjj and management of inpatientJustin Laura MENA Work Phone: [facility] RadiologyComment on above:ArrivedStart: 05-17-2024 End: 44-34-9187Rgmyroscaj and management of inpatientSjustin Cobian MD Work Phone: [facility] GC 5 WestStart: 05-17-2024 End: 12-68-5579Atsxhhzdzo and management of inpatientJustin Laura MENA Work Phone: [facility] Radiology CTComment on above:ArrivedStart: 05-17-2024 End: 90-06-9712ghapypkpkgARTGAIV PROVIDERFacility:METROHealthStart: 05-17-2024 Evaluation and management of inpatientNOAH WHITENERFacility:METROHealthStart: 05-16-2024 End: 52-28-4288Hnoougdfk department patient visitNomagdaleno SWojciech WhitecamachoFacility:[facility] Start: 12-12-2023 End: 65-57-1715qgnisrauuzCwzsvweskHolmes County [facility] Work Phone: Start: 12-12-2023 End: 09-18-0056Lnphyvx encounter [facility] Work Phone: Start: 09-18-2023 End: 48-15-2625gnirrjavxjFefgskfg Ball Other [employer] Other Start: 22-51-9788Fsiunmaxs encounterBenjamin BallQuail Run Behavioral Health Medical ClinicStart: 09-08-2023 End: 89-26-8757ocsqzbfkwnAczsgxwk Ball Other [employer] Other Start: 14-75-8574Arwadoyci encounterBenjamin BallFPG Ball Medical ClinicStart: 06-11-2023 End: 00-21-9363tkyzzmveoqXccwyjyy Ball Other [employer] Other Start: 10-25-9051Aezzmcc encounter procedureBenjamin BallFPG [facility] Medical ClinicStart: 14-04-2405Khugwpmcb encounterBenjamin BallFP[facility] ClinicStart: 06-04-2023 End: 98-41-2779izeundosxfJcfcucjf Ball Other [employer] Other Start: 44-57-9605Ylhgriwao encounterBenjamin BallFP[facility] ClinicStart: 06-03-2023 End: 90-40-1362xqfmqjnlcdHuccgbnm Ball Other [employer] Other Start: 51-38-2052Uspwcvske encounterBenjamin BallFP[facility] ClinicStart: 05-29-2023 End: 56-85-4192rslagflnctKtmniqwe Ball Other [employer] Other Start: 24-60-1881Bdfnpewnp encounterBenjamin BallFP[facility] ClinicStart: 03-11-2023 End: 35-94-0800hraqnlovcvKoxgsmzk Ball Other [employer] Other Start: 42-26-2127Tzzhkaekipbd care manage srvc 7 day dischargeBenjamin BallFP[facility] ClinicStart: 03-06-2023 End: 01-91-6482sezxwyiwxnMfwrrdfq Ball Other [employer] Other Start: 53-61-7040Ipjgmyary encounterBenjamin [facility]FP[facility] ClinicStart: 12-09-2022 End: 13-98-2984lbsgbabyxjDkjjzsuf Ball Other north [employer] Other Start: 46-53-0157Lgechn outpatient visit 25 minutes [facility] ClinicStart: 10-22-2022 End: 69-58-0637klyzvseeypEB DONY MOOREFacility:R6Nryfq: 09-10-2022 End: 74-63-0120bqijnrwmddYgcdeekh Ball Other [facility] [employer] Other Start: 86-84-8295Jjunyv outpatient visit 25 minutes [facility] ClinicStart: 02-13-2022 End: 01-63-9030kvrvrjucqkNV DONY MOOREFacility:V5Yfxpx: 38-56-3297Cyifr health examinationBeamna Moore Other [facility] [employer] Other Procedures DateProcedureProcedure DetailPerforming ClinicianStart: 81-33-1657Utjjmvwlwp exam chest single viewMalik Ramos MD Work Phone: Start: 01-68-9032Wzicyuqbmq exam chest single view Jose M Strausbaugh DO Work Phone: start: 83-91-9564Lqmgniemny exam chest single view Malik Ramos MD Work Phone: Start: 51-73-9211Uy chest real time w/image Aman Reyna MD Work Phone: Start: 23-69-0002Yg thorax w/contrast materialLorne Strausbaugh DO Work Phone: start: 13-79-8736Tqeqoknwzz exam chest single view Valery Reyna MD Work Phone: Start: 27-89-0181Sgcbizgxah exam chest single view Valery Reyna MD Work Phone: Start: 73-01-0635Ctafqjbjuf exam chest single view Valery Reyna MD Work Phone: Start: 84-41-3414Lhjjofbzjw exam chest single view Cailin Beltran MD Work Phone: [phone]: 27-18-8121Hs thorax w/contrast materialCailin Beltran MD Work Phone: [phone]: 17-34-6909Gdcttscdfu exam abdomen 1 viewRachel Lina DO Work Phone: [phone]: 82-29-2900Jwjgflmisx exam chest single view Matt Freda DO Work Phone: [phone]: 07-92-0807Hl abdomen & pelvis w/contrast materialRooseveltlupe Mckeonboom DO Work Phone: [phone]: 17-04-6007Iijupifmic exam chest single view Rajiv Valdes MD Work Phone: [phone]: 88-83-5109Fd abdomen & pelvis w/contrast Antonio Ramirez MD Work Phone: [phone]: 20-64-4437He angiography chest w/contrast/noncontrastAlexkarine Ramirez MD Work Phone: [phone]: 19-70-5098Pzpxctjsxg exam chest single view Rajiv Valdes MD Work Phone: [phone]: 52-00-2518Jcoghnhdyc exam chest single view Lino Armijo MD Work Phone: [phone]: 43-34-5411Crsuthbqbe exam chest single view Jahaira Eduardo MD Work Phone: [phone]: 49-52-9557Mzaxcdlnrm exam chest single view Lino Armijo MD Work Phone: [phone]: 64-60-1576Eecfejgmjb exam chest single view Lino Armijo MD Work Phone: [phone]: 85-70-3333Hhkcmrivhf exam chest single view Katie Lina DO Work Phone: [phone]: 82-82-1834Eunsgxvzhc exam chest single view Matt Barba DO Work Phone: Start: 15-74-9669Xmejomvjmu exam chest single view Neyda Bobby MD Work Phone: Start: 70-67-8759Ljuvfduafx exam chest single view Neyda Bobby MD Work Phone: Start: 31-20-1164Cucfxomjwf exam chest single view Katie Mills DO Work Phone: [phone]: 98-88-1999Qn thorax w/o contrast Nikki Burton MD Work Phone: [phone]: 67-51-4111Qilurnkizq exam chest single viewKimberlee Wright DO Work Phone: [phone]: 44-27-1887Wynsrjljrq exam chest single view Rahul Lewis MD Work Phone: Start: 05-17-2024 End: 72-32-7484Yr guidance needle placement img s&iSjustin Cobian MD Work Phone: start: 42-16-8848Nlqurxgq procedure nervous system Shaan Cobian MD Work Phone: start: 48-45-8856Kzxwtiayej exam chest single view Rahul Lewis MD Work Phone: Start: 05-57-1719Yd pelvis w/o contrast Anayeli Ford DO Work Phone: Start: 60-23-4998Dykfbmadzy screeningBenfrancois Moore Other Depression screeningBenfrancois Moore Other Plan of Treatment DateCare ActivityDetailAuthorStart: 14-57-5610Dbkuxfwku vaccinationInfluenza Vaccine (#1)[facility]Start: 10-25-1877FANXG-19 Vaccine ( season) COVID-19 Vaccine ( season)[facility]HealthStart: 61-75-6190Zppofnkpp vaccinationInfluenza Vaccine (#1)[facility]HealthStart: 12-46-3492PCX Vaccine (75+ years)RSV Vaccine (75+ years)[facility]Start: 43-67-0761Szrari wellness visit Annual Wellness Visit (G0438)[facility]Start: 58-89-1161Nocajkwuknwu vaccinationPneumococcal Vaccine(s) (65+ yrs) (1 of 1 - PCV)[facility]Start: 82-42-8803Dhprrcmim B (HBV) Vaccine (optional start 60+ years)Hepatitis B (HBV) Vaccine (optional start 60+ years)[facility]Start: 49-02-9525Skrrbggq (RZV) Vaccine (1 of 2)Shingles (RZV) Vaccine (1 of 2)[facility]HealthStart: 1959 Hepatitis A (HAV) Vaccine (optional start 19+ years)Hepatitis A (HAV) Vaccine (optional start 19+ years)[facility]Start: 38-74-2444Tbze BoosterTdap Booster [facility]HealthStart: 53-70-1029Ncnpapxucfjd vaccinationPneumococcal Vaccine(s) (65+ yrs) (1 of 2 - PCV)MetroHealthPEG WITH TRACHEOSTOMYPEG WITH TRACHEOSTOMY Routine scheduled Closed fracture of multiple ribs with flail chest, initial e ncounterMetroHealthTHORACOSCOPYTHORACOSCOPY 5/E - Within 24 Hours Closed fracture of multiple ribs with flail chest, initial encounterMetroHealth Immunizations Immunization DateImmunizationNotesCare DnvchdshBiqczrjy32-80-4375knvhxbkkf, high dose seasonal, preservative-freeDony Moore Other [employer] Other 382007-43-6864kriteljjf virus vaccine, unspecified formulation[facility]07-11-2023Prevnar 20Dony Moore Other [facility]10-19-2021influenza virus vaccine, split virus (incl. purified surface antigen)Dony Moore Other [employer] Other 10-557065-29-2026utqwdpktr virus vaccine, unspecified formulationK[facility]12-02-2020influenza virus vaccine, split virus (incl. purified surface antigen)Dony Moore Other [facility] [employer] Other 12639475-87-9229vmkysiabu virus vaccine, unspecified formulationK[facility]tering Health [facility] Campus Payers DatePayer CategoryPayerPolicy [id number] 2006Medicare MEDICARE - RAILROAD MEDICARE RAILROAD LONG TERM [id number] 2006-Present [address] [address] [place] [address] [id number] [id number] 2.16.840.2.10243[id number] 2.16.840.6.56154[id number] 2.16.840.1.167179.3.579.2.5963-88-1144Glutgut8622249 2.16.840.1.079129.3.579.2.59236-37-3931Dmxhmif83297400 2.16.840.1.154377.3.579.2.40528-57-0167Qadaypy54290216 2.16.840.1.040957.3.579.2.79098-73-0901Vnllcgs85305481 2.16.840.1.673121.3.579.2.06846-64-4203Ctifjid13237408 2.16.840.1.962168.3.579.2.51591-20-3944Livkozu303258905 2.16.840.1.120680.3.579.2.27252-85-3237Cavtrpu364206637 2.16.840.1.429158.3.579.2.36813-05-7158Hpntrie467468867 2.16.840.1.976957.3.579.2.78308-84-0993Vvmybsd407460531 2.16.840.1.270452.3.579.2.61375-97-1056Ihhtiuf132689379 2.16.840.1.108190.3.579.2.18077-66-6701Yfkcimz093525140 2.16.840.1.979513.3.579.2.88439-06-7818Mikkjqs515241053 2.16.840.1.896337.3.579.2.29330-22-2701Jnqorvr763195940 2.16.840.1.091031.3.579.2.67664-67-4743Uxzigyd932066033 2.16.840.1.996689.3.579.2.58310-62-0299Nwnidub212093335 2.16.840.1.665697.3.579.2.00752-59-0400Qjelbcp474473427 2.16.840.1.994336.3.579.2.09763-18-7598Quxpypr892555885 2.16.840.1.084108.3.579.2.79610-61-8535Xslepft341103570 2.16.840.1.304149.3.579.2.11953-74-5332Xegrsxw418396176 2.16.840.1.784228.3.579.2.66951-61-7678Kpqxaak434932932 2.16.840.1.400420.3.579.2.68379-33-7599Hntkznf880287348 2.16.840.1.032785.3.579.2.15624-32-7098Ybnmnmp386865153 2.16.840.1.869401.3.579.2.91446-51-1470Qxvvnkv406636967 2.16.840.1.797138.3.579.2.30696-56-7351Gntteeo453046319 2.16.840.1.796423.3.579.2.48219-31-8073Fzrcojn949039337 2.16.840.1.361556.3.579.2.06576-42-6945Mzbpjma156362281 2.16.840.1.885423.3.579.2.10837-30-3503Rsegmcr493219262 2.16.840.1.553810.3.579.2.49767-72-5772Uxbumap834126529 2.16.840.1.239003.3.579.2.54939-12-4787Myaaspt891570684 2.16.840.1.898730.3.579.2.01281-18-1106Hgkdivh243448912 2.16.840.1.873781.3.579.2.17656-75-5643Bsyfrdf915696992 2.16.840.1.920226.3.579.2.93830-96-2904Uzxlwkr509582589 2.16.840.1.186512.3.579.2.15752-41-9502Kkahuar760977140 2.16.840.1.709695.3.579.2.59171-14-3098Gqhymiq058259829 2.16.840.1.448760.3.579.2.12555-72-7416Lxaxhha273455133 2.16.840.1.556559.3.579.2.70082-79-8384Jjpjzyo058052478 2.16.840.1.530494.3.579.2.56110-18-7853Zpolfck766983452 2.16.840.1.604033.3.579.2.59665-54-9572Duxcjxm906435628 2.16.840.1.124707.3.579.2.29629-08-3295Iwpqlpt976022204 2.16.840.1.115363.3.579.2.11643-75-8263Busjrdi897550414 2.16.840.1.822248.3.579.2.18801-70-7602Jnyxiha760010802 2.16.840.1.820367.3.579.2.91793-42-1561Mgvzyyy220072470 2.16.840.1.675235.3.579.2.60806-09-9898Yyhcmqu308014973 2.16.840.1.530560.3.579.2.50587-65-9324Qilkreu913377972 2.16.840.1.739386.3.579.2.92511-01-2387Gegzdmk639870243 2.16.840.1.188670.3.579.2.86669-11-5503Xgadqte745633484 2.16.840.1.022937.3.579.2.92671-62-9995Dsqgcdb283863500 2.16.840.1.506228.3.579.2.83574-60-5370Gorpbyp594613976 2.16.840.1.353590.3.579.2.06924-69-0869Pemymml936938902 2.16.840.1.955137.3.579.2.74574-16-6763Zxoctpp755138785 2.16.840.1.286294.3.579.2.53507-37-4882Pgjipxl813492791 2.16.840.1.173277.3.579.2.79935-81-7757Txdlkhf789812300 2.16.840.1.940855.3.579.2.14494-24-9011Rjqpdfh250658568 2.16.840.1.517201.3.579.2.67352-30-0341Ckflmzv677914127 2.16.840.1.865440.3.579.2.96033-84-7621Gnqitxb819354853 2.16.840.1.006565.3.579.2.19236-64-3127Rckmghd299420772 2.16.840.1.717719.3.579.2.58247-69-1275Hbsczrs184186439 2.16.840.1.252962.3.579.2.05368-21-5852Qbdoxbz594625038 2.16.840.1.581036.3.579.2.44265-93-6045Dsbtxpy227652206 2.16.840.1.970882.3.579.2.45751-30-7910Rvkehaf414793638 2.16.840.1.730625.3.579.2.07839-86-1903Hkesprp918109105 2.16.840.1.862758.3.579.2.66715-91-9852Uvwjgwm702345120 2.16.840.1.774308.3.579.2.07934-65-2873Znswhez381812280 2.16.840.1.002150.3.579.2.23902-26-3162Stcvjvl145204779 2.16.840.1.757449.3.579.2.58322-74-1292Ijzeecd668673029 2.16.840.1.640823.3.579.2.35159-33-2929Ruamtph046813890 2.16.840.1.385485.3.579.2.61057-60-5327Ijgivdt739542931 2.16.840.1.335572.3.579.2.46186-17-2988Gjjueci627111862 2.16.840.1.887032.3.579.2.06682-27-6820Akvdpxu874994369 2.16.840.1.572123.3.579.2.62615-06-7802Akqyndp53845706 2..840.1.294939.3.579.2.57844-45-6354Ywdvsxz78501312 2..840.1.821130.3.579.2.727 Social History DateTypeDetailFacilityStart: 15-92-8648Glg Assigned At BirthMetroHealthStart: 73-47-4979Urf [facility]igned [facility] smoking status NHISTobacco smoking consumption unknownMetroHealthStart: 20-07-9186Fjt assigned at birthNot on fileMetroHealthStart: 18-11-4809Ecqsdgi of Social functionMetroHealth(I/We) worried whether (my/our) food would run out before (I/we) got money to buy more.Never trueMetroHealthIn the past 12 months, has lack of transportation kept you from medical appointments or from getting medications?NoMetroHealthIn the past 12 months, was there a time when you were not able to pay the mortgage or rent on time?NoMetroHealthStart: 05-16-2024 Tobacco smoking statusLight tobacco smoker (finding)[facility] Medical Equipment Procedure CodeEquipment CodeEquipment Original TextEquipment IdentifierDatesCap Orth Lck Hex Dryoni Ns Lf Ea1 3494077 - [id number]: 43-66-5042Rew 23mm Brdg Lck Post Ea1 7514963 - [id number]_bwxLvpmj: 44-18-8820Pgfc Orth 23mm Lng Brdg Post Ea1 1120785 - [id number]_jyuWjfau: 70-48-8311Idwo Orth Ns Lf Ea1 6198118 - [id number]_yyqUfxdn: 05-20-2024 Functional Status EgmpVgzeicvkhpKqsmagGlfnoycr86-84-1152Yzyvarzoth StatusN/AFisher - [facility] Clinical Notes 09-10-2022 to 06-10-2024 Note Date & SbvlWdziIednpedv37-31-6114 NoteThe [facility] Rsotgb35-70-6877 Note -per patient controlled by oxycodone 10 mg q4hr prn for severe pain -consider pain management consult for consideration of procedure options for non-cancer acute painThe [facility]09-24-2024 Note-per patient controlled by oxycodone 10 mg q4hr prn for severe pain -consider pain management consult for consideration of procedure options for non-cancer acute painThe [facility]09-16-2024 Anesthesiology procedure note* Anesthesia Acute Pain - Maurisio Fontanez MD - 05/17/2024 7:10 PM EDT Acute Pain Service Follow Up Note Patient with R-sided MADDIE catheter in situ for post-operative pain (+-7cm catheter length threaded into plane). Current basal infusion rate: 0.4% Lidocaine 12cc z22josh intermittent bolus with no patient bolus. Subjective: [...] team during work hours or the Senior Anesthesiaresident education coordinator in the Main OR after hours if there are any questions. Maurisio Fontanez MD Anesthesia PGY-4 Pain pager: [phone] [facility] Work Phone: [phone]) 782-604409-16-2024 Miscellaneous Notes* Anesthesia Acute Pain - Maurisio Fontanez MD - 05/17/2024 7:10 PM EDT Acute Pain Service Follow Up Note Patient with R-sided MADDIE catheter in situ for post-operative pain (+-7cm catheter length threaded into plane). Current basal infusion rate: 0.4% Lidocaine 12cc y25lveg intermittent bolus with no patient bolus. Subjective: [...] team during work hours or the Senior Anesthesiaresident education coordinator in the Main OR after hours if there are any questions. Maurisio Fontanez MD Anesthesia PGY-4 Pain pager: [phone] * Anesthesia Acute Pain - Shaan Cobian MD - 05/17/2024 2:17 PM EDT Images from the original note were not included. Acute Pain Progress Note Patient: Andrea Michelle, male, 83 year old Patient is: inpatient Reason for Consultation/Chief Complaint: Acute Pain History of Present Illness : 83 year old male with PMH as detailed below, presenting with Right sided rib fractures. c/o moderate to severe pain, worse with inspiration and movement, mild to moderaterelief with oral medications. Patient now comfortable s/p right sided MADDIE catheter at T6. Review of Systems: Pulmonary: COPD Cardio-vascular: HTN, CAD, and Previous ND Musculoskeletal: LUE, LLE, RUE, and RLE motor [...] Social Determinants of Health Received from [facility] Safety & Environment has no history on [...] mcg/inh inhalation powder 1 Puff Inhalation Q DAILYRT 1 Puff at 05/17/24 1155 metoprolol (LOPRESSOR) [...] 4-9 a/w flail chest, saturating appropriately on 6LNC now s/p Right sided MADDIE catheter at [...] the pickering and critical portions of the historyand physical exam. I reviewed the resident's documentation and discussed the patient with the resident. I agree with the resident's medical decision making as documented in the resident's note. Improved pain after lidocaine bolus, patient slightly altered after unlikely from lidocaine from MADDIE recommend further evaluation from primary team. No signs of local anesthesia toxicity at this time. Girish Shannon MD documented in this [id number] Anesthesiology procedure note * Anesthesia Acute Pain - Shaan Cobian MD - 05/17/2024 2:17 PM EDT Images from the original note were not included. Acute Pain Progress Note Patient: Andrea Michelle, male, 83 year old Patient is: inpatient Reason for Consultation/Chief Complaint: Acute Pain History of Present Illness : 83 year old male with PMH as detailed below, presenting with Right sided rib fractures. c/o moderate to severe pain, worse with inspiration and movement, mild to moderaterelief with oral medications. Patient now comfortable s/p right sided MADDIE catheter at T6. Review of Systems: Pulmonary: COPD Cardio-vascular: HTN, CAD, and Previous ND Musculoskeletal: LUE, LLE, RUE, and RLE motor [...] Social Determinants of Health Received from [facility] Safety [facility] Environment has no history on [...] mcg/inh inhalation powder 1 Puff Inhalation Q DAILYRT 1 Puff at 05/17/24 1155 metoprolol (LOPRESSOR) [...] 4-9 a/w flail chest, saturating appropriately on 6LNC now s/p Right sided MADDIE catheter at [...] Pain Medicine 05/17/2024, 2:17 PM APS service [phone] Associated attestation - Girish Shannon MD - 05/18/2024 6:44 AM EDT Teaching Physician Note: I saw and evaluated the patient. I personally obtained the pickering and critical portions of the historyand physical exam. I reviewed the resident's documentation and discussed the patient with the resident. I agree with the resident's medical decision making as documented in the resident's note. Improved pain after lidocaine bolus, patient slightly altered after unlikely from lidocaine from MADDIE recommend further evaluation from primary team. No signs of local anesthesia toxicity at this time. Girish Shannon MD CtjfxZispch95-26-2224 Anesthesiology procedure note* Anesthesia Procedure Notes - Shaan Cobian MD - 05/17/2024 2:13 PM EDTAssociated Order(s): Peripheral Block Peripheral Block Patient location [...] Slow fractionated injection: yes No block complications QxthlBlochi84-03-3937 Surgical operation note* Anesthesia Procedure Notes - Shaan Cobian MD - 05/17/2024 2:13 PM EDTAssociated Order(s): Peripheral Block Peripheral Block Patient location [...] yes No block complications documented in this k[id number] History of Present illness Narrative* Jane Samson SW, LSW - 05/17/2024 1:24 AM EDT Cat 1 Pt is an 83 yo M presenting via [facility] s/p fall down 6-8 steps with multiplerib fractures, hemathorax with chest tube, and pubic ramus fracture. Per report pt fell down basement steps and was on the ground for 1-1.5 hours until his spouse foundhim and called 911. With permission, SW contacting spouse Ilana Michelle ([phone]). Spouse aware of pt'spresentation to ED and plan to admit. Spouse plans to call/visit tomorrow. Plan: Admit MARGIE Mendez, NETWORK CONSULTANT ED Varnish Dipper documented in this [id number] NoteConsultation Note TRAUMA HISTORY & PHYSICAL BASIC INJURY [...] cigarettes(less than 1/4 pack)/day in last 30 daysTobacco Use:. Cigarettes FAMILY HISTORY: No family history [...] Lymph Auto: 8.6 % Low (05/16/24 21:58:00) Warren Auto: 4.3 % (05/16/24 21:58:00) Eos Auto: 3 % (05/16/24 21:58:00) Basophil Auto: 0.4 % (05/16/24 21:58:00) Neutro Absolute: 14.5 E9/L High (05/16/24 21:58:00) Lymph Absolute: 1.5 E9/L (05/16/24 21:58:00) Warren Absolute: 0.7 E9/L (05/16/24 21:58:00) Eos Absolute: 0.5 E9/L (05/16/24 21:58:00) Basophil Absolute: 0.1 E9/L (05/16/24:58:00) PT: 9.3 second(s) Low (05/16/24 21:58:00) INR: 0.83 (05/16/24 21:58:00) PTT: 29.9 second(s) (05/16/24:58:00) Glucose Lvl: 143 mg/dL (05/16/24 21:58:00) BUN: 20 mg/dL (05/16/24 21:58:00) Creatinine: 0.8 mg/dL (05/16/24 21:58:00) eGFR: 88 mL/min/1.73 m2 (05/16/24 21:58:00) BUN/Creat Ratio: 25 High (05/16/24 21:58:00) Sodium Lvl: 126 mmol/L Low (05/16/24 21:58:00) Potassium Lvl: 3.8 mmol/L (05/16/24 21:58:00) Chloride: 92 mmol/L Low (05/16/24 21:58:00) CO2: 23 mmol/L (05/16/24 21:58:00) AGAP: 15 mEq/L (05/16/24 21:58:00) Calcium Lvl: 9.5 mg/dL (05/16/24 21:58:00) Alk [...] time to expedite patien (more content not included)...[facility] HospitalComment on above: Result Comment: Electronically Signed By: Mackenzie MENA, Santos Vicente\.br\Date and Time Signed: 05/17/24 00:05 [id number] NoteProcedural PROCEDURE NOTE: PIGTAIL CHEST TUBE PLACEMENT Pre-procedure [...] tolerated the procedure well. Santos Mann MD [facility] Trauma and Emergency General SurgeryOhio State East Hospital09-15-2024 Evaluation + Plan noteExtracted from:Title:ED Note Author:Ludmila Leach DODate:05/16/24 Closed head injury (S09.90XA : Unspecified injury of head, initial encounter) Hyponatremia (E87.1: Hypo-osmolality and hyponatremia) Pneumothorax (J93.9: Pneumothorax, unspecified) Rib fractures (S22.49XA: Multiple fractures of ribs, unspecified side, initial encounter for closedfracture) Orders: HYDROmorphone, 0.5 mg = 0.5 mL, Injection, IV Push, Once, Stop date 05/16/24 22:07:00 EDT, Start date 05/16/24 22:07:00 EDT XR Chest Single View Diagnostic Tests Pending * Drug Screen Urine 05/16/24 [facility] 01-18-2024 Evaluation note* Encounter Date Diagnosis Assessment Notes Treatment Notes Treatment Clinical Notes Sep, Xerosis cutis (ICD-10 - L85.3) [employer] Other 10-11-2023 Evaluation note* Encounter Date Diagnosis [...] reviewed and amended by provider signed below. Jun,SHD (arteriosclerotic heart disease) (ICD-10 - I25.10)This patient is stable without activity related CP, dyspnea or lightheadedness. They are instructedto continue exercise and AHA diet plan. Continue secondary prevention measures. Jun,ulmonary nodule (ICD-10 - R91.1)CT: 1.1cm EMMIE nodule - 03/2023 Recommend serial LDCT chest. Last CTA in March 11Jun,igarette nicotine dependence without complication (ICD-10 - F17.210)This patient has been encouraged to quit tobacco use immediately. They are aware of the hazards associated with tobacco use, including but not limited to respiratory infections, vascular disease and cancers. Jun,Mucopurulent chronic bronchitis (ICD-10 - J41.1)Instructed on smoking cessation. Smokes 3 cigs daily Using nicotine patches, instructed not to use while smoking No inhaler use at this time Recent admission w/ CAP requiring intubation - doesn't require home oxygen Jun,rimary hypertension (ICD-10 - I10)This patient is instructed to consume a healthy, low-fat, low-salt diet. They are also encouraged to continue exercise to achieve/maintain a normal BMI. Jun,Elevated cholesterol (ICD-10 - E78.00)Instructed on diet and exercise with continued statin therapy.Discussed the beneficial effects of lo wering cholesterol in reducing the risk for cerebrovascular and cardiovascular disease. Jun,Single subsegmental pulmonary embolism without acute cor pulmonale (ICD-10 - I26.93)Opted not to anticoagulate due to hemophelia. No respiratory symptoms of dyspea, CP or hemoptysis Jun,Lumbar spondylosis (ICD-10 - M47.816)The patient is instructed to avoid bending, twisting or lifting. They are to use intermittent heat and ice as needed. They may schedule a massage or gentle manipulation. They may safely use Tylenol as needed. Jun,Subclinical hypothyroidism (ICD-10 - E03.8)Monitor for now, treat if symptoms consistent w/ hypothyroid or TSH > 8 [employer] Other [id number] Evaluation note* Encounter Date Diagnosis Assessment Notes [...] reviewed and amended by provider signed below. Jun,SHD (arteriosclerotic heart disease) (ICD-10 - I25.10)This patient is stable without activity related CP, dyspnea or lightheadedness. They are instructedto continue exercise and AHA diet plan. Continue secondary prevention measures. Jun,ulmonary nodule (ICD-10 - R91.1)CT: 1.1cm EMMIE nodule - 03/2023 Recommend serial LDCT chest. Last CTA in Jun,Mucopurulent chronic bronchitis (ICD-10 - J41.1)Instructed on smoking cessation. Smokes 3 cigs daily Using nicotine patches, instructed not to use while smoking No inhaler use at this time Recent admission w/ CAP requiring intubation - doesn't require home oxygen Jun,rimary hypertension (ICD-10 - I10)This patient is instructed to consume a healthy, low-fat, low-salt diet. They are also encouraged to continue exercise to achieve/maintain a normal BMI. Jun,Elevated cholesterol (ICD-10 - E78.00)Instructed on diet and exercise with continued statin therapy.Discussed the beneficial effects of lo wering cholesterol in reducing the risk for cerebrovascular and cardiovascular disease. Jun,Single subsegmental pulmonary embolism without acute cor pulmonale (ICD-10 - I26.93)Opted not to anticoagulate due to hemophelia. No respiratory symptoms of dyspea, CP or hemoptysis Jun,Lumbar spondylosis (ICD-10 - M47.816)The patient is instructed to avoid bending, twisting or lifting. They are to use intermittent heat and ice as needed. They may schedule a massage or gentle manipulation. They may safely use Tylenol as needed. Jun,Subclinical hypothyroidism (ICD-10 - E03.8)Monitor for now, treat if symptoms consistent w/ hypothyroid or TSH > 8 Jun,OtherThis patient has been encouraged to quit tobacco use immediately. They are aware of the hazards associated with tobacco use, including but not limited to respiratory infections, vascular disease and c ancers. [employer] Other 10-03-2023 Evaluation note* Encounter Date Diagnosis Assessment Notes Treatment Notes Treatment Clinical Notes Jun, Pulmonary nodule (ICD-10 - R91.1 ) CT: 1.1cm EMMIE nodule - 03/2023, CT: no change EMMIE nodule - 06/2023 [facility] Other 09-28-2023 Evaluation note* Encounter Date Diagnosis Assessment Notes Treatment Notes Treatment Clinical Notes May, Pulmonary nodule (ICD-10 - R91.1 ) [facility] Other 07-11-2023 Evaluation note* Encounter Date Diagnosis Assessment Notes Treatment Notes Treatment Clinical Notes Mar, Chronic obstructive pulmonary disease with (acute) exacerbation (ICD-10 - J44.1) Finished antibiotics Continue tapering doses of Prednisone. Check oxygen level at home, maintain > 90% Avoid restarting tobacco use _update immunization - Pneumovax 20 - yearly Flu Mar,cute on chronic respiratory failure with hypercapnia (ICD-10 - J96.22)Failed CPAP and intubated until stable. d/c w/o oxygen or PAP Complete tapering doses of Prednisone Mar,SHD (arteriosclerotic heart disease) (ICD-10 - I25.10)This patient is stable without activity related CP, dyspnea or lightheadedness. They are instructedto continue exercise and AHA diet plan. Mar,ulmonary nodule (ICD-10 - R91.1)CT: 1.1cm EMMIE nodule - 03/2023 Explained guidelines for pulmonary nodule surveillance He is high risk Mar,Hyponatremia (ICD-10 - E87.1)Healthy diet, decrease alcohol consumption, fluid restrict to 1500ml/day, salt food. Recheck lytes, Osmo, Urine Na Mar,igarette nicotine dependence without complication (ICD-10 - F17.210)This patient has been encouraged to quit tobacco use immediately. They are aware of the hazards associated with tobacco use, including but not limited to respiratory infections, vascular disease and cancers. Continue to abstain Mar,Subclinical hypothyroidism (ICD-10 - E03.8)Avoid Biotin Recheck labs Mar,rimary hypertension (ICD-10 - I10)This patient is instructed to consume a healthy, low-fat, low-salt diet. They are also encouraged to continue exercise to achieve/maintain a normal BMI. Mar,Mucopurulent chronic bronchitis (ICD-10 - J41.1)Mucinex as needed Avoid tobacco use. UTD w/ immunizations Mar,Elevated cholesterol (ICD-10 - E78.00)Instructed on diet and exercise with continued statin therapy.Discussed the beneficial effects of lo wering cholesterol in reducing the risk for cerebrovascular and cardiovascular disease. Mar,Lumbar spondylosis (ICD-10 - M47.816)The patient is instructed to avoid bending, twisting or lifting. They are to use intermittent heat and ice as needed. They may schedule a massage or gentle manipulation. They may safely use Tylenol as needed. Denies radicular pain or weakness Referral to [facility] Mar,Elevated TSH (ICD-10 - R79.89)Hypothyroid vs subclinical hypothyroid. recheck labs Mar,OtherNo s/s recurrence Keep active No bleeding compications Small subsegmental PE does not require AC [employer] Other 04-10-2023 Evaluation note* Encounter Date Diagnosis Assessment Notes Treatment Notes Treatment Clinical Notes Nov, Essential hypertension (ICD-10 - I10) This patient is instructed to consume a healthy, low-fat, low-salt diet. They are also encouraged to continue exercise to achieve/maintain a normal BMI. Nov,SHD (arteriosclerotic heart disease) (ICD-10 - I25.10)This patient is stable without activity related CP, dyspnea or lightheadedness. They are instructedto continue exercise and AHA diet plan. Nov,igarette nicotine dependence without complication (ICD-10 - F17.210)This patient has been encouraged to quit tobacco use immediately. They are aware of the hazards associated with tobacco use, including but not limited to respiratory infections, vascular disease and cancers. Nov,Mucopurulent chronic bronchitis (ICD-10 - J41.1)Smoking cessation encouraged. Mucinex as needed. No need for inhalers, no ER/hosp visits for AECOPD - discussed HHN w/ [facility] as affordable Nov,Elevated cholesterol (ICD-10 - E78.00)Diet and exercise with continued statin therapy. Nov,astroesophageal reflux disease with esophagitis, unspecified whether hemorrhage (ICD-10 - K21.00)Diet instructions: Smaller portions, avoid eating and laying flat, avoid eating or drinking prior to bedtime. Weight loss. 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 Monitor for GI bleeding. [facility] Other 01-10-2023 Evaluation note* Encounter Date Diagnosis Assessment Notes Treatment Notes Treatment Clinical Notes Sep, ASHD (arteriosclerotic heart dis ease) (ICD-10 - I25.10) This patient is stable without activity related CP, dyspnea or lightheadedness. They are instructedto continue exercise and AHA diet plan. Sep,Mucopurulent chronic bronchitis (ICD-10 - J41.1)This patient has been encouraged to quit tobacco use immediately. They are aware of the hazards associated with tobacco use, including but not limited to respiratory infections, vascular disease and cancers. Sep,Essential (primary) hypertension (ICD-10 - I10)This patient is instructed to consume a healthy, low-fat, low-salt diet. They are also encouraged to continue exercise to achieve/maintain a normal BMI. 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 Healthy, high protein diet. Sep,igarette nicotine dependence without complication (ICD-10 - F17.210) Sep,Lumbar spondylosis (ICD-10 - M47.816)The patient is instructed to avoid bending, twisting or lifting. They are to use intermittent heat and ice as needed. They may schedule a massage or gentle manipulation. They may safely use Tylenol as needed. 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)No bleeding complications Sep,astroesophageal reflux disease with esophagitis without hemorrhage (ICD-10 - K21.00) Sep,OtherSymtoms tolerable [employer] Other Evaluation noteNo InformationNort [employer] Other Evaluation noteNo assessment information available [facility] Work Phone: History general Narrative - Reported* Type Description Date Medical History Gastroesophageal ref lux disease with esophagitis, unspecified whether hemorrhage Medical HistoryBenign prostatic hyperplasia with lower urinary tract symptoms Medical HistoryUrinary frequencyMedical HistoryCigarette nicotine dependence without complicationMedical HistoryOlecranon bursitis of right elbowMedical HistoryAcute blood loss anemiaMedical HistoryLumbar spondylosisMedical History Depression screeningMedical HistoryBody mass index (BMI) of 25.0 to 29.9Medical HistoryDeep vein thrombosis (DVT) of proximal vein of left lower extremity, unspecified chronicityMedical HistoryTobacco userMedical HistorySubclinical hypothyroidismMedical HistoryLeft adrenal massMedical History HypertriglyceridemiaMedical HistoryEssential hypertensionMedical HistoryAcquired hemophilia AMedical HistoryMucopurulent chronic bronchitisMedical HistoryASHD (arteriosclerotic heart disease)Medical HistoryAcute bilateral low back pain without sciaticaMedical HistoryElevated transaminase levelMedical HistoryDeep vein thrombosis (DVT) of femoral vein of left lower extremitySurgical HistoryIVC filterSurgical HistoryappendectomyHospitalization Historysee surgical history [facility] [employer] Other History general Narrative - Reported* Type Description Date Medical History Gastroesophageal ref lux disease with esophagitis, unspecified whether hemorrhage Medical HistoryBenign prostatic hyperplasia with lower urinary tract symptoms Medical HistoryUrinary frequencyMedical HistoryCigarette nicotine dependence without complicationMedical HistoryOlecranon bursitis of right elbowMedical HistoryAcute blood loss anemiaMedical HistoryLumbar spondylosisMedical History Depression screeningMedical HistoryBody mass index (BMI) of 25.0 to 29.9Medical HistoryDeep vein thrombosis (DVT) of proximal vein of left lower extremity, unspecified chronicityMedical HistoryTobacco userMedical HistorySubclinical hypothyroidismMedical HistoryLeft adrenal massMedical History HypertriglyceridemiaMedical HistoryEssential hypertensionMedical HistoryAcquired hemophilia AMedical HistoryMucopurulent chronic bronchitisMedical HistoryASHD (arteriosclerotic heart disease)Medical HistoryAcute bilateral low back pain without sciaticaMedical HistoryElevated transaminase levelMedical HistoryDeep vein thrombosis (DVT) of femoral vein of left lower extremityMedical History Pulmonary nodule LULSurgical HistoryIVC filterSurgical Historyappendectomy Hospitalization Historysee surgical history [employer] Other Hospital course Narrative No data available for this section [facility] Hospital Discharge instructions No data available for this section [facility] Procedure anesthesia Narrative* Procedure Name Responsible AnesthesiologistAnesthesia Start TimeAnesthesia Stop TimeACUTE PAIN RAJACNGXzedVqhpCozzxTgtwnnq48/16/[id number] Equip Check* NameTotal lidocaine methylparaben-free (XYLOCAINE) injection 2 %20 mL * Agents No agents on file. * Blood No blood administrations on file. TypeDetailsPlacementRemovalChest Tube:05/17/24; Right, Upper; Abdomen; Present on Arrival to Hospital / Inserted by EMS05/17/24 0000 by Susan Webb, JOSÉ MANUEL Indwelling Urinary Xhhhyysx70/16/24; 0326; 16 FR; Temperature-sensing catheter; 10; RN05/17/24 0326 by Susan Webb RNEpidural05/17/24; [id number]/17/24 1400 by Amanda Whipple RNPeripheral IV Line05/19/24; 1200; 20 gauge; Anterior, Right; Ggaxpjj16/18/24 1200 by Amanda Whipple RNPeripheral IV Line05/19/24; 1200; 18 gauge; Left, Posterior; Wrist05/19/24 1200 by Amanda Whipple RN [facility] N[facility] Procedure NameResponsible AnesthesiologistAnesthesia Start TimeAnesthesia Stop TimeACUTE PAIN CONSULT DuwiEuhkXdlnqSlqihex84/16/[id number] Equip Check* NameTotallidocaine methylparaben-free (XYLOCAINE) injection 2 %20 mL * Agents No agents on file. * Blood No blood administrations on file. TypeDetailsPlacementRemovalIndwelling Urinary Zgkjinma77/16/24; 0326; 16 FR; Temperature-sensing catheter; 10; RN05/17/24 0326 by Susan Webb RN Whxjkdvn52/16/24; [id number]/17/24 1400 by Amanda Whipple RNPeripheral IV Line 05/19/24; 1200; 18 gauge; Left, Posterior; Wrist05/19/24 1200 by Amanda Whipple RNAdvanced Sicpcu99/18/24; 1430; # 7.5; Bilateral breath sounds, Equal chest rise & fall, End-tidal CO2 color detector (+color change); Equal bilateral breath sounds, CO2 confirmed; Glidescope, Bite block emozpm93/18/24 1430 by Aamnda Whipple RNArterial Line05/19/24; 1530; Left; Fnvjba25/18/24 1530 by Amanda Whipple RNWound05/19/24; 2030; Right; Arm; Other; infiltration of levophed; N005/19/24 2030 by Cristina Sun RNOG/NG05/19/24; 2100; O/G; 18 Fr; Oral; 60 cm05/19/242099 by Amanda Whipple RNCVC - Triple Lumen05/19/24; 2145; Central Line; Left; IJ; wire-guided, ultrasound ocxodn38/18/24 214 by Cristina Sun RNChest Tube:05/20/24; 1505; # 1; Right, Upper; Qpotofl36/19/24 1505 by Chon Arvizu Tube:05/20/24; 1506; # 2; Right, Upper; Mjbfgoo34/19/24 1506 by Negra ArvizuWound05/20/24; 1520; Right; Chest; Surgical - Incision; 1 incision sutured dressed with island dressingchest tubes dressed with xeroform and tegadermtegaderm and 2x2 to previous chest tube site05/20/24 1520 by Geraldine Arvizu in this encounter [facility] N[facility]* Procedure NameResponsible AnesthesiologistAnesthesia Start TimeAnesthesia Stop TimeACUTE PAIN CONSULT YaojDilaIxjrnOlehqrt48/16/[id number] Equip Check* NameTotallidocaine methylparaben-free (XYLOCAINE) injection 2 %20 mL * Agents No agents on file. * Blood No blood administrations on file. TypeDetailsPlacementRemovalIndwelling Urinary Estdaovb71/16/24; 0326; 16 FR; Temperature-sensing catheter; 10; RN05/17/24 0326 by Susan Webb, RN Oaenqngc82/16/24; [id number]/17/24 1400 by Amanda Whipple RNWound05/19/24; 2030; Right; Arm; Other; infiltration of levophed; N005/19/24 2030 by Cristina Sun RNCVC - Triple Lumen05/19/24; 2145; Central Line; Left; IJ; wire-guided, ultrasound vjeypf82/18/24 2145 by Cristina Sun RNChest Tube:05/20/24; 1505; # 1; Right, Upper; Jnbobdr10/19/24 1505 by Chon Arvizu Tube:05/20/24; 1506; # 2; Right, Upper; Olrjvuf62/19/24 1506 by Negra ArvizuWound05/20/24; 1520; Right; Chest; Surgical - Incision; 1 incision sutured dressed with island dressingchest tubes dressed with xeroform and tegadermtegaderm and 2x2 to previous chest tube site05/20/24 1520 by Negra ArvizuOG/NG05/21/24; 1530; Nostril; 60 cm05/21/24 1530 by Sukhwinder Ca RNPeripheral IV Line05/22/24; 0941; 20 gauge; Posterior, Right; Wrist05/22/24 0941 by Sukhwinder Ca, RNPeripheral IV Line05/22/24; 0943; 20 gauge; Left, Posterior; Wrist05/22/24 0943 by Sukhwinder Ca RNdocumented in this encounter [facility] No data available for this section [facility] Summary Purpose Family History No Family [...] Directives No Advanced Directives Records Found Date ActivatedDate InactivatedComments05/17/2024 3:52 AM06/10/2024 5:53 PM QuestionAnswerCommentsDocumentation of decision process for this code status:* Discussed with patient or surrogate. This is the code status chosen by the patient/surrogate. Date ActivatedDate InactivatedComments05/17/2024 2:58 AM05/17/2024 3:52 AMQuestion AnswerCommentsDocumentation of decision process for this code status:* Patient and surrogate unable or unavailable to discuss. There is no previous documentation of code status. Defaulting to Full Code Advance Directive Response Recorded Date/ Time Advance Directives No September 24, 2023 4:00pm Date ActivatedDate InactivatedComments05/17/2024 3:52 AMQuestionAnswerComments Documentation of decision process for this code status:* Discussed with patient or surrogate. This is the code status chosen by the patient/surrogate. Date ActivatedDate InactivatedComments05/17/2024 2:58 AM05/17/2024 3:52 AMQuestion AnswerCommentsDocumentation of decision process for this code status:* Patient and surrogate unable or unavailable to discuss. There is no previous documentation of code status. Defaulting to Full Code Date ActivatedDate InactivatedComments05/17/2024 3:52 AM Chief Complaint and Reason for Visit Chief Complaint 6 month follow up Additional Source Comments REASON FOR VISIT (unrecogniz ed section and content) ReasonCommentsTrauma/complex Medical SituationSpecialtyDiagnoses / Procedures Referred By ContactReferred To ContactEmerozarks [facility] Medicine Diagnoses Fall (on) (from) other stairs [...] fractures with chest tube Procedures NA [employer] [place] [employer] [place] [address] Phone: [phone] [place] [employer] [place] [address] Phone: [phone] Referral IDStatusReasonStart DateExpiration DateVisits RequestedVisits [id number] (unrecognized sect ion and content) No Status [...] and content) DATE CREATED AUTHOR 10/26/2022 [facility] DATE CREATED AUTHOR AUTHOR'S ORGANIZ ATION 05/17/2024 [facility] DATE CREATED AUTHOR AUTHOR'S ORGANIZ ATION 07/12/2024 [facility] DATE CREATED AUTHOR AUTHOR'S ORGANIZ ATION 07/20/2024 [facility] DATE CREATED AUTHOR AUTHOR'S ORGANIZ ATION 08/26/2024 [facility] Care Teams (unrecognized sec tion and content) Team Status: Active Member Role Status Dates Dony Moore DO Primary Care Provider Active Team Status: Inactive Member Role Status Dates Dony Moore DO Primary Care Provide r, Attending Provider [...] BE BASED ON THE PRIMARY CLINICAL RECORDS. [facility]. provides no warranty or guarantee of the accuracy or completeness of information in this document.
--- NOTE | 2025-07-06 17:38 | ED_ITS ---
HPI - Weakness General Chief complaint: Weakness Stated complaint: LOW BLOOD PRESSURE/ SENT OVER DR MOORE Time Seen by Provider: 07/06/25 16:35 Source: patient Mode of arrival: Wheelchair Limitations: no limitations History of Present Illness HPI Narrative: The patient have a history of multiple comorbidities including chronic history of hyponatremia COPD acquired hemophilia and hypertension the patient presented to us after he was evaluated by his primary care and was found to be hypotensive and having a history of 4 weeks of diarrhea in addition to 2 days of not eating at all The patient himself is not showing any distress denying any dizziness although he said that sometimes he will have dizziness when he stands up The patient have a history of hypertension Related Data Home Medications ?Medication ?Instructions ?Recorded ?Confirmed lisinopril 40 mg tablet 40 mg PO DAILY 02/28/2301/23 metoprolol succinate 25 mg 25 mg PO DAILY 02/28/2301/23 tablet,extended release 24 hr Allergies Allergy/AdvReac Type Severity Reaction Status Date / Time No Known Drug Allergies Allergy Verified 12/16/24 16:34 Review of Systems ROS Status of ROS 10 or more systems reviewed and unremark able except as noted in history and below [facility] Medical History H/O deep venous thrombosis ?Z86.718 - Personal history of other venous thrombosis and embolism (ICD-10) Diabetes ?E11.9 - Type 2 diabetes mellitus without complications (ICD-10) History of mechanical ventilation ?Z92.89 - Personal history of other medical treatment (ICD-10) 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) Hyponatremia ?E87.1 - Hypo-osmolality and hyponatremia (ICD-10) Hypertension ?I10 - Essential (primary) hypertension (ICD-10) COPD (chronic obstructive pulmonary disease) ?J44.9 - Chronic obstructive pulmonary disease, unspecified (ICD-10) 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 General: Well-appearing and in no apparent distress. Head: Normocephalic, atraumatic. Neck: Supple, non-tender. Eye: Pupils are equal, round and EOMI. No scleral icterus. Ears, Nose, Mouth, and Throat: Dry mucous membranes Cardiovascular: Regular Rate with some PVCs and Rhythm without murmur, gallop or rub. Respiratory: No accessory muscle use or respiratory distress. Lungs are clear to auscultation, no wheezing, rales or rhonchi Chest Wall: no tenderness Musculoskeletal: normal ROM, but noted that the patient have a purple toes and fingers with cold sensation mostly secondary to the hypotension the patient presenting with GI: Abdomen is soft, non-distended. Normal bowel sounds. No masses appreciated. No tenderness to palpation. No rebound, guarding, or rigidity noted. Neurological: Awake and oriented x 3 showing no neurological pathology cranial nerves are normal as well as upper lower extremity movement within normal Psychiatric: Cooperative and interactive. Normal mood and affect. Constitutional Vital Signs, click to edit/add: Last Vital Signs Temp 97.4 F L 07/06/25 16:39 Pulse 79 07/06/25 17:50 Resp 31 H 07/06/25 17:50 BP 97/70 07/06/25 17:43 Pulse Ox 96 07/06/25 16:39 O2 Del Method Room Air 07/06/25 16:39 Course Vital Signs Vital signs: Vital Signs Temperature 97.4 F L 07/06/25 16:39 Pulse Rate 59 L 07/06/25 16:39 Respiratory Rate 24 H 07/06/25 16:39 Blood Pressure 75/60 L 07/06/25 16:39 Pulse Oximetry 96 07/06/25 16:39 Oxygen Delivery Method Room Air 07/06/25 16:39 Temperature 97.4 F L 07/06/25 16:39 Pulse Rate 79 07/06/25 17:50 Respiratory Rate 31 H 07/06/25 17:50 Blood Pressure 97/70 07/06/25 17:43 Pulse Oximetry 96 07/06/25 16:39 Oxygen Delivery Method Room Air 07/06/25 16:39 MDM - Weakness MDM Narrative Medical decision making narrative: The patient presented as hypotensive with a blood pressure of 70/40 IV access established using ultrasound in addition to blood draw The patient has a history of acquired hemophilia A as well as hypertension and COPD The patient have been having diarrhea for the last 4 weeks in addition to the fact that he had decreased p.o. intake for the last 2 days Right now the patient was started on IV fluid hydration he is getting right now the second liter and blood pressure is 97/70 The blood workup shows mild leukocytosis of 12 the kidney function is showing a creatinine of 8 instead of the 0.8 that he had as a baseline in January The patient also had a BUN above 150 Patient acute kidney injury could be secondary to dehydration but I did discuss the case with and we will get a CAT scan of the abdomen pelvis to make sure there is no kidney stone that could have caused the patient to have acute kidney injury Lab Data Labs: Lab Results 07/06/25 Range/Units 17:35 WBC 12.3 H (4.0-11.0) 10^3/uL RBC 4.47 L (4.70-6.10) 10^6/uL Hgb 15.4 (14.0-18.0) g/dL Hct 43.4 (42.0-54.0) % MCV 97.1 H (80.0-94.0) fL MCH 34.5 H (25.9-34.0) pg MCHC 35.5 H (29.9-35.2) g/dL RDW 13.2 (11.0-15.0) % Plt Count 426 (150-450) 10^3/uL MPV 10.5 (9.5-13.5) fL Seg Neuts % (Manual) 90.0 H (43.0-75.0) Lymphocytes % (Manual) 8.0 L (20.5-60.0) % Monocytes % (Manual) 2.0 (1.7-12.0) % Eosinophils % (Manual) 0.0 L (0.9-7.0) % Basophils % (Manual) 0.0 L (0.2-2.0) % Neutrophils # (Manual) 11.07 H (1.4-6.5) 10^3/uL Lymphocytes # (Manual) 0.98 L (1.20-3.80) 10^3/uL Monocytes # (Manual) 0.24 L (0.30-0.80) 10^3/uL Eosinophils # (Manual) 0.00 (0.00-0.70) 10^3/uL Basophils # (Manual) 0.00 (0.00-0.10) 10^3/uL PT 10.3 (9.0-11.6) sec INR 0.97 Sodium 134 L (136-145) mmol/L Potassium 3.6 (3.5-5.1) mmol/L Chloride 100 (98-107) mmol/L Carbon Dioxide 9.5 L (21.0-32.0) mmol/L Anion Gap 28.1 BUN 157.0 H* (7.0-18.0) mg/dL Creatinine 8.28 H* (0.70-1.30) mg/dL Est GFR ( Amer) 8 L (>=60 mL/min/1.73m^2) Est GFR (Non-Af Amer) 6 L (>=60 mL/min/1.73m^2) BUN/Creatinine Ratio 19.0 Glucose 81 (74-106) mg/dL Lactate 1.0 (0.4-2.0) mmol/L Calcium 6.7 L (8.5-10.1) mg/dL Magnesium 1.8 (1.8-2.4) mg/dL Total Bilirubin 0.2 (0.2-1.0) mg/dL AST 23 (15-37) U/L ALT 24 (16-63) U/L Alkaline Phosphatase 77 (46-116) U/L Troponin I High Sens 13.7 (4.0-76.1) pg/mL Total Protein 5.7 L (6.4-8.2) g/dL Albumin 2.9 L (3.4-5.0) g/dL Globulin 2.8 g/dL Albumin/Globulin Ratio 1.0 Discharge Plan Discharge Patient Disposition: Still a Patient
[2025-07-06 17:41] LABS: Hematocrit 43.4 % (42.0-54.0); Hemoglobin 15.4 g/dL (14.0-18.0); Mean Corpuscular HGB Conc 35.5 g/dL (29.9-35.2); Mean Corpuscular Hemoglobin 34.5 pg (25.9-34.0); Mean Corpuscular Volume 97.1 fL (80.0-94.0); Platelet Count 426 10^3/uL (150-450); Red Blood Count 4.47 10^6/uL (4.70-6.10); White Blood Count 12.3 10^3/uL (4.0-11.0)
[2025-07-06 18:13] LABS: INR 0.97; Prothrombin Time 10.3 sec (9.0-11.6)
[2025-07-06 18:14] LABS: Basophils Abs Manual 0.00 10^3/uL (0.00-0.10); Basophils Percent Manual 0.0 % (0.2-2.0); Eosinophils Absolute Manual 0.00 10^3/uL (0.00-0.70); Eosinophils Percent Manual 0.0 % (0.9-7.0); Lactate/Lactic Acid 1.0 mmol/L (0.4-2.0); Lymphocytes Absolute Manual 0.98 10^3/uL (1.20-3.80); Lymphocytes Percent Manual 8.0 % (20.5-60.0); Monocytes Absolute Manual 0.24 10^3/uL (0.30-0.80); Monocytes Percent Manual 2.0 % (1.7-12.0); Segmented Neut Absolute Manual 11.07 10^3/uL (1.4-6.5); Segmented Neutrophils % Manual 90.0 (43.0-75.0)
[2025-07-06 18:15] LABS: Alanine Aminotransferase 24 U/L (16-63); Albumin Globulin Ratio 1.0; Albumin Level 2.9 g/dL (3.4-5.0); Alkaline Phosphatase 77 U/L (46-116); Anion Gap 28.1; Aspartate Amino Transferase 23 U/L (15-37); Calcium 6.7 mg/dL (8.5-10.1); Carbon Dioxide 9.5 mmol/L (21.0-32.0); Chloride 100 mmol/L (98-107); Estimated GFR (African America 8 (>=60 mL/min/1.73m^2); Estimated GFR (Non-African Ame 6 (>=60 mL/min/1.73m^2); Globulin 2.8 g/dL; Glucose 81 mg/dL (74-106); Potassium 3.6 mmol/L (3.5-5.1); Sodium 134 mmol/L (136-145); Total Protein 5.7 g/dL (6.4-8.2)
[2025-07-06 18:17] LABS: Magnesium 1.8 mg/dL (1.8-2.4)
[2025-07-06 18:24] LABS: Blood Urea Nitrogen 157.0 mg/dL (7.0-18.0)
--- NOTE | 2025-07-06 18:30 | CT_ITS ---
[facility] [id number] Patient Name: ELIDA JERONIMO MRN: [id number] date: 1940 Sex: M Assigned Patient Location: ED.MAIN Current Patient Location: ED.MAIN Accession/Order Number: [id number] Exam Date: 07/06/2025 19:28 Report Date: 07/06/2025 20:13 At the request of: TRIXIE AMBROSE MD Procedure: CT abdomen pelvis wo con CT Abdomen and Pelvis withoutcontrast TECHNIQUE: Axial imaging with 2-D reconstruction. The CT exam was performed using one or more the following dose reduction techniques: Automated exposure control, adjustment of the MA and/or Kv according to patient size, or use of the iterative reconstruction technique. COMPARISON: None History: Diarrhea for 3 weeks. Weakness. LIMITATIONS: None LOWER THORAX Unremarkable LIVER: Unremarkable GALLBLADDER: Cholelithiasis identified. BILE DUCTS: No dilatation SPLEEN: Unremarkable PANCREAS: Unremarkable ADRENAL GLANDS: Unremarkable KIDNEYS:No hydronephrosis. AORTA: No abdominal aortic aneurysm identified. A large volume of atherosclerosis of aorta and branches. IVC filter in place. RETROPERITONEUM: No significant retroperitoneal abnormalities identified. MESENTERY:Unremarkable STOMACH:Unremarkable SMALL BOWEL: The small bowel loops are nondistended. APPENDIX: The appendix is normal. COLON: Diffuse wall thickening of the colon. Underdistention versus mild colitis. No adjacent inflammation. Moderate burden of stool throughout the colon. Scattered colonic diverticuli. URINARY BLADDER: Urinary bladder is unremarkable. REPRODUCTIVE SYSTEM: Prostatomegaly PNEUMOPERITONEUM: None PERITONEAL FLUID:None BONY STRUCTURES: Scoliosis with extensive degenerative changes ABDOMINAL WALL: Unremarkable CT/CT abdomen pelvis wo con IMPRESSION: Diffuse mild thickening of the colon wall. Underdistention versus mild colitis. Mild to moderate constipation. Cholelithiasis. No focal inflammatory change. Prostatomegaly. Impression dictated by: Mt Sweeney M.D. 07/06/2025 8:13 PM Dictation Location: [facility] Electronically authenticated by: [id number] Y Date: 07/06/2025 20:13
[2025-07-06] MEDS: 0.9 % SODIUM CHLORIDE 1,000 ML 1000 ML IV (18:40)
[2025-07-06] MEDS: ACETAMINOPHEN 500 MG TABLET 1000 MG PO (19:16)
--- NOTE | 2025-07-06 20:21 | ED.GENADUL1 ---
HPI HPI - General Adult General Chief complaint: Weakness Stated complaint: LOW BLOOD PRESSURE/ SENT OVER DR MOORE Time Seen by Provider: 07/06/25 16:35 Source: patient Mode of arrival: Wheelchair Limitations: no limitations History of Present Illness HPI narrative: This 85-year-old male was signed out to me at shift change pending CT scan. He presents for evaluation of generalized weakness and hypotension. The patient was seen and evaluated. He is awake and alert. He states he has been having diarrhea for the past 3 weeks. He has not noticed any blood in his stool. He does not have any chest pain or shortness of breath. He was noted to be hypotensive upon arrival and after IV fluids his blood pressure improved. At the time of this dictation his blood pressure is 107/54. He does have acute kidney injury with an elevated BUN and creatinine. He has normal lactic acid. CT scan of the abdomen pelvis shows diffuse mild thickening of the colon wall; underdistention versus mild colitis with mild to moderate constipation, cholelithiasis and no focal inflammatory changes. He denies any complaint of pain except chronic back pain for which he received Tylenol. The results of these findings were discussed with the hospitalist and he is accepted for admission. Related Data Home Medications ?Medication ?Instructions ?Recorded ?Confirmed lisinopril 40 mg tablet 40 mg PO DAILY 02/28/23 07/06/25 metoprolol succinate 25 mg 25 mg PO DAILY 02/28/23 07/06/25 tablet,extended release 24 hr Allergies Allergy/AdvReac Type Severity Reaction Status Date / Time No Known Drug Allergies Allergy Verified 12/16/24 16:34 Opioid HPI Opioid Management Most Recent Opioid Data: Last Pain Scale 0 03/05/23, 09:19 Last Pain Intensity 0 03/05/23, 09:19 [facility] Medical History H/O deep venous thrombosis ?Z86.718 - Personal history of other venous thrombosis and embolism (ICD-10) Diabetes ?E11.9 - Type 2 diabetes mellitus without complications (ICD-10) History of mechanical ventilation ?Z92.89 - Personal history of other medical treatment (ICD-10) 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) Hyponatremia ?E87.1 - Hypo-osmolality and hyponatremia (ICD-10) Hypertension ?I10 - Essential (primary) hypertension (ICD-10) COPD (chronic obstructive pulmonary disease) ?J44.9 - Chronic obstructive pulmonary disease, unspecified (ICD-10) 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) COPD exacerbation ?J44.1 - Chronic obstructive pulmonary disease with (acute) exacerbation (ICD-10) Surgical History S/P IVC filter ?Z95.828 - Presence of other vascular implants and grafts (ICD-10) Social History Smoking status: Current every day smoker Little interest or pleasure in doing things: not at all Feeling down, depressed, or hopeless: not at all Exam Constitutional Vital Signs, click to edit/add: Last Vital Signs Temp 97.4 F L 07/06/25 16:39 Pulse 89 07/06/25 19:20 Resp 33 H 07/06/25 19:20 BP 107/54 07/06/25 19:20 Pulse Ox 96 07/06/25 16:39 O2 Del Method Room Air 07/06/25 16:39 Course Vital Signs Vital signs: Vital Signs Temperature 97.4 F L 07/06/25 16:39 Pulse Rate 59 L 07/06/25 16:39 Respiratory Rate 24 H 07/06/25 16:39 Blood Pressure 75/60 L 07/06/25 16:39 Pulse Oximetry 96 07/06/25 16:39 Oxygen Delivery Method Room Air 07/06/25 16:39 Temperature 97.4 F L 07/06/25 16:39 Pulse Rate 89 07/06/25 19:20 Respiratory Rate 33 H 07/06/25 19:20 Blood Pressure 107/54 07/06/25 19:20 Pulse Oximetry 96 07/06/25 16:39 Oxygen Delivery Method Room Air 07/06/25 16:39 Medical Decision Making Lab Data Labs: Lab Results 07/06/25 Range/Units 17:35 WBC 12.3 H (4.0-11.0) 10^3/uL RBC 4.47 L (4.70-6.10) 10^6/uL Hgb 15.4 (14.0-18.0) g/dL Hct 43.4 (42.0-54.0) % MCV 97.1 H (80.0-94.0) fL MCH 34.5 H (25.9-34.0) pg MCHC 35.5 H (29.9-35.2) g/dL RDW 13.2 (11.0-15.0) % Plt Count 426 (150-450) 10^3/uL MPV 10.5 (9.5-13.5) fL Seg Neuts % (Manual) 90.0 H (43.0-75.0) Lymphocytes % (Manual) 8.0 L (20.5-60.0) % Monocytes % (Manual) 2.0 (1.7-12.0) % Eosinophils % (Manual) 0.0 L (0.9-7.0) % Basophils % (Manual) 0.0 L (0.2-2.0) % Neutrophils # (Manual) 11.07 H (1.4-6.5) 10^3/uL Lymphocytes # (Manual) 0.98 L (1.20-3.80) 10^3/uL Monocytes # (Manual) 0.24 L (0.30-0.80) 10^3/uL Eosinophils # (Manual) 0.00 (0.00-0.70) 10^3/uL Basophils # (Manual) 0.00 (0.00-0.10) 10^3/uL PT 10.3 (9.0-11.6) sec INR 0.97 Sodium 134 L (136-145) mmol/L Potassium 3.6 (3.5-5.1) mmol/L Chloride 100 (98-107) mmol/L Carbon Dioxide 9.5 L (21.0-32.0) mmol/L Anion Gap 28.1 BUN 157.0 H* (7.0-18.0) mg/dL Creatinine 8.28 H* (0.70-1.30) mg/dL Est GFR ( Amer) 8 L (>=60 mL/min/1.73m^2) Est GFR (Non-Af Amer) 6 L (>=60 mL/min/1.73m^2) BUN/Creatinine Ratio 19.0 Glucose 81 (74-106) mg/dL Lactate 1.0 (0.4-2.0) mmol/L Calcium 6.7 L (8.5-10.1) mg/dL Magnesium 1.8 (1.8-2.4) mg/dL Total Bilirubin 0.2 (0.2-1.0) mg/dL AST 23 (15-37) U/L ALT 24 (16-63) U/L Alkaline Phosphatase 77 (46-116) U/L Troponin I High Sens 13.7 (4.0-76.1) pg/mL Total Protein 5.7 L (6.4-8.2) g/dL Albumin 2.9 L (3.4-5.0) g/dL Globulin 2.8 g/dL Albumin/Globulin Ratio 1.0 Discharge Plan Discharge Patient Disposition: Still a Patient
--- OUTSIDE RECORDS SUMMARY | 2025-07-06 21:48 | XMS_ITS | CCD ---
Author Organization [facility] Care Team Providers Care Jumpbasting Canvas Baster Name Role Phone Dony Moore Unavailable TERESA, [...] LUDMILA Referring Unavailable PROVIDER, UNKNOWN Attending Unavailable ALURA, GIRISH Admitting Unavailable HAYLEE, LUDMILA Referring Unavailable [...] UNKNOWN Attending Unavailable LAURA, GIRISH Admitting Unavailable KATONA, PAU Attending Unavailable LAURA, GIRISH Admitting Unavailable [phone], IP TEAM TRAUMA Consulting Unavail able HAYLEE, LUDMILA Referring Unavailable REQUEST, IP PHYSICAL THERAPY SERVICE Consulting Unavailable REQUEST, IP OCCUPATIONAL THERAPY SERVICE Consult ing Unavailable CONSULT, IP ORTHOPAEDICS GENERAL Consulting Unavailable CONSULT, IP ANESTHESIA Consulting Unavailab le CONSULT, IP PALLIATIVE CARE Consulting Unav ailable DONY MOORE Primary Care Physician Leatha Spring Admitting Unavailable Leatha Spring Attending Unavailable Fiordaliza Jara Referring Unavailable Dony Moore DO Primary Care Provider Dony Moore DO Attending Provider Medications Current Medications MedicationDrug Class(es)DatesSig (Normalized)Sig (Original)acetaminophen 500 mg oral tablet (6 sources)Start: 99-78-9418jbbr 2 tablets intragastric route every six hours acetaminophen (TYLENOL) 500 MG tablet 2 Tablets by G Tube route every 6 (six) hours. 30 Tablet 06/10/2024 ActiveStart: 57-57-0351kkxo 1 tablet by mouth every six hours as neededtake 1 tablet by mouth every six hoursTylenol Extra Strength 500 MG 1 tablet as needed Orally every 6 hrs [id number] 200 actuat albuterol 0.09 mg/actuat metered dose inhaler (15 sources)beta2-Adrenergic AgonistStart: 06-10-2024 End: 99-16-9738lvfqhtzzg (PROVENTIL) (2.5 MG/3ML) 0.083% nebulizer solution Use 3 mL via nebulizer every 4 hours as needed for Shortness of Breath (or not indicated). 90 Each 06/10/2024 07/10/2024 ActiveStart: 18-31-4956dyrz 4 puff(s) by mouth every four hours as needed for wheezingalbuterol (Proventil HFA) INHALATION HFA inhaler (VENTOLIN,PROAIR,PROVENTIL) 90mcg Inhale 4 Puffs by mouth every 4 hours as needed for Shortness of Breath or Wheezing. 18 g 06/10/2024 ActiveStart: 19-32-3613coft 1 puff(s) by inhalation every four hours as needed take 1 puff(s) by inhalation every four [...] 06/10/2024 Activeascorbic acid 500 mg chewable tablet (4 sources)Vitamin CStart: 81-24-2827ewgx 1 tablet by mouth once dailytake 1 tablet by mouth every twenty-four hoursVitamin C 500 MG 1 tablet Orally Once a day Activebiotin 10 mg oral capsule (15 sources)Start: 07-60-8197Yffja: 72-95-0799Qgcxbw Active MCG PO December 11, 2023 12:00amtake 1 tablet by mouth every twenty-four hoursBiotin 12981 MCG 1 tablet Orally Once a day Not-Taking/PRNtake 1 tablet by mouth every twenty-four hoursBiotin 67573 MCG 1 tablet Orally Once a day Not-Takingtake 1 tablet by mouth once dailyBiotin 13655 MCG 1 tablet Orally Once a day Not-Takingtake 1 tablet by mouth once dailyBiotin 62333 MCG 1 tablet Orally Once a day Active Biotin Plus Keratin 09561-759 MCG-MG (9 sources)Biotin Plus Keratin 51076-636 MCG-MG as directed Orally Active cefdinir 300 mg oral capsule (9 sources)Cephalosporin AntibacterialCefdinir 300 MG as directed Orally Active cholecalciferol 0.025 mg oral capsule (4 sources)Vitamin DStart: 88-95-8711ndcg 1 capsule by mouth once dailytake 1 tablet by mouth every twenty-four hoursVitamin D 25 MCG (1000 UT) 1 capsule Orally Once a day Not-Taking/PRNcloNIDine hydrochloride 0.1 mg oral tablet (2 sources)Central alpha-2 Adrenergic AgonistStart: 15-52-0142ehmZJRmdf (CATAPRES) 0.1 MG tablet 1 Tablet by G Tube route every 8 hours. 60 Tablet 3 06/10/2024 Active0.4 ml enoxaparin sodium 100 mg/ml prefilled syringe (2 sources)Low Molecular Weight HeparinStart: 06-10-2024 End: 55-89-6999lrxxjh 0.4 mL by subcutaneous injection twice dailyenoxaparin (LOVENOX) 40 MG/0.4ML injection Inject 0.4 mL under the skin 2 times daily. 24 mL 06/10/2024 07/10/2024 Kozdtl107 actuat fluticasone propionate 0.11 mg/actuat metered dose inhaler (2 sources)CorticosteroidStart: 99-61-0878ypmg 1 puff(s) by mouth twice daily fluticasone (FLOVENT HFA) 110 MCG/ACT inhaler Inhale 1 Puff by mouth 2 times daily. 12 g 06/10/20245306Pwpdhi70 actuat fluticasone furoate 0.1 mg/actuat / umeclidinium 0.0625 mg/actuat / vilanterol 0.025 mg/actuat dry powder inhaler (1 source)Anticholinergic, Corticosteroid, beta2-Adrenergic AgonistStart: 55-92-4186xgqi 1 puff(s) by inhalation once dailyTrelegy Ellipta 100-62.5-25 MCG/ACT 1 puff Inhalation Once a day for 30 days Sep, Activefolic acid 1 mg oral tablet (3 sources)take 1 tablet by mouth every twenty-four hoursFolic Acid 1 MG 1 tablet Orally Once a day Activehydrocortisone 10 mg/ml topical cream (2 sources)CorticosteroidStart: 06-10-2024 End: 28-69-7973ksztprgedgpjbk 1 % cream Apply topically 2 times daily. Apply thin layer to affected area. 30 g 06/10/2024 07/10/2024 Activelabetalol hydrochloride 5 mg/ml injectable solution (2 sources)beta-Adrenergic BlockerStart: 60-51-5127iksmgg 2 mL intravenously every six hours as neededlabetalol (TRANDATE) 5 mg/mL injection 2 mL by Intravenous Push route every 6 hours as needed (SBP >160). 4 mL 06/10/2024 Activelisinopril 40 mg oral tablet (20 sources)Angiotensin Converting Enzyme InhibitorStart: 01-16-2024 End: 34-10-5930aeja 1 tablet by mouth once dailyStart: 09-08-2022 End: 34-04-1906lrzc 1 tablet by mouth once dailyLisinopril 40 mg tablet Discontinued 40 MG PO Daily December 10, 2023 11:00pm January 16, 2024 6:34am melatonin 3 mg oral tablet (2 sources)Start: 92-93-8264yxez 1 tablet by mouth at bedtimemelatonin 3 MG TABS tablet Take 1 Tablet by mouth at bedtime. 30 Tablet 06/10/2024 Lqtois64 hr metoprolol succinate 25 mg extended release oral tablet (20 sources)beta-Adrenergic BlockerStart: 01-16-2024 End: 06-03-4489xfhy 1 tablet by mouth once dailyStart: 09-08-2022 End: 81-32-8964djjv 1 tablet by mouth once dailyMetoprolol Succinate 25 mg tablet extended release 24 hr Discontinued 25 MG PO Daily December 10, 2023 11:00pm January 16, 2024 6:34amtake 1 capsule by mouth once dailyMetoprolol Succinate 25 MG 1 capsule Orally Once a day Activemupirocin 0.02 mg/mg topical ointment (1 source)RNA Synthetase Inhibitor AntibacterialStart: 21-02-6410kvbevryyljq 500 mg oral tablet (11 sources)Start: 95-72-2872ctet 1 tablet by mouth once dailytake 1 tablet by mouth every twenty-four hoursNiacinamide 500 MG 1 tablet Orally Once a day Wtlncp32 hr nicotine 0.875 mg/hr transdermal system (2 sources)Cholinergic Nicotinic AgonistStart: 78-85-5425pnxrh 1 dose transdermal route once dailynicotine (NICODERM CQ) 21 mg/24HR patch Place 1 Patch on the skin daily. 30 Patch 06/11/2024 Active2 ml ondansetron 2 mg/ml injection (2 sources)Serotonin-3 Receptor AntagonistStart: 39-96-7841aupdxe 2 mL intravenously every six hours as neededondansetron (ZOFRAN) 4 MG/2ML injection 2 mL by Intravenous Push route every 6 hours as needed. 15 mL 06/10/2024 Active oxyCODONE hydrochloride 5 mg oral tablet (3 sources)Opioid AgonistStart: 06-10-2024 End: 77-50-8221pvqEUTXBL 5 MG immediate release tablet Indications: Closed nondisplaced fracture of pelvis, unspecified part of pelvis, initial encounter (HCC) 1 Tablet by G Tube route every 4 hours as needed for up to 5 days. 28 Tablet 06/10/2024 06/15/2024 ActiveStart: 06-10-2024 End: 55-07-6458dpdODBMBR 5 MG immediate release tablet Indications: Closed nondisplaced fracture of pelvis, unspecified part of pelvis, initial encounter (HCC) 2 Tablets by G Tube route every 4 hours as needed for up to 3 days. 28 Tablet 06/10/2024 06/13/2024 Activepantoprazole 40 mg injection (2 sources)Proton Pump InhibitorStart: 66-59-9905kkqyhw 10 mL intravenously once daily 30 minutes before breakfastpantoprazole (PROTONIX) 40 MG SOLR injection 10 mL by Intravenous Push route daily (30 minutes before breakfast). 30 Each 06/11/2024 ActivePediatric Multivitamins-Iron (Cerovite Jr) chew tab (2 sources)Start: 06-11-2024 End: 86-56-8637bgjz 1 tablet by mouth once dailyPediatric Multivitamins-Iron (Cerovite Jr) chew tab Chew and swallow 1 Tablet by mouth daily. 30 Tablet 06/11/2024 07/11/2024 Activesulfamethoxazole 800 mg / trimethoprim 160 mg oral tablet (1 source)Dihydrofolate Reductase Inhibitor Antibacterial, Sulfonamide AntimicrobialStart: 29-26-5320hqwy 1 tablet by mouth every twelve hoursBactrim DS 800-160 MG 1 tablet Orally Twice a day for 10 day(s) December, Active Tylenol Extra Strength 500 MG (7 sources)take 1 tablet by mouth every six hours as neededTylenol Extra Strength 500 MG 1 tablet as needed Orally every 6 hrs Qulqgx17 actuat umeclidinium 0.0625 mg/actuat / vilanterol 0.025 mg/actuat dry powder inhaler (2 sources)Anticholinergic, beta2-Adrenergic AgonistStart: 06-10-2024 End: 65-36-1773wuaa 1 puff(s) by mouth once dailyumeclidinium-vilanterol (ANORO- ELLIPTA) 62.5-25 mcg/inh AEPB inhalation powder Inhale 1 Puff by mouth daily. 60 Each 06/10/2024 07/10/2024 ActiveVitamin C 500 MG (7 sources)take 1 tablet by mouth once dailyVitamin C 500 MG 1 tablet Orally Once a day Active Completed/Discontinued Medications MedicationDrug Class(es)DatesSig (Normalized)Sig (Original)esomeprazole 20 mg delayed release oral capsule (15 sources)Proton Pump InhibitorStart: 12-11-2023 End: 50-96-6795hcpx 1 capsule by mouth once dailyEsomeprazole Magnesium (Nexium) 20 mg capsule,delayed release(DR/EC) Discontinued 20 MG PO Daily December 10, 2023 11:00pm December 12, 2023 12:57pmtake 1 capsule by mouth every twenty-four hoursNexIUM 20 MG 1 capsule Orally Once a day Activeiohexol (OMNIPAQUE) 300 MG/ML injection (2 sources)Start: 06-06-2024 End: 71-22-7277kgdk 1 dose by mouth once50 mL, Oral, Once at Radiology exam, 1 dose, Starting on 06/06/24 at 1508, Until 06/06/24 at 1508, Imaging Protocol OrdersStart: 06-01-2024 End: 22-85-4947eayo 1 dose by mouth once50 mL, Oral, Once at Radiology exam, 1 dose, Starting on Tu06/01/24 at 1244, Until 06/01/24 at 1144, Imaging Protocol Ordersiohexol (OMNIPAQUE) 350 MG/ML injection (4 sources)Start: 06-06-2024 End: 33-92-4080gijz 1 dose intravenously krei262 mL, Intravenous Push, Once at Radiology exam, 1 dose, Starting on 06/06/24 at 1508, Until 06/06/24 at 1508, Imaging Protocol OrdersStart: 05-30-2024 End: 79-60-8986lkow 1 dose intravenously fawc638 mL, Intravenous Push, Once at Radiology exam, 1 dose, Starting on 05/30/24 at 1707, Until 05/30/24 at 1707, Imaging Protocol OrdersStart: 05-29-2024 End: 50-65-7690atys 1 dose intravenously mvzw925 mL, Intravenous Push, Once at Radiology exam, 1 dose, Starting on 05/29/24 at 1145, Until 05/29/24 at 1145, Imaging Protocol OrdersStart: 05-17-2024 End: 41-56-5449ezan 1 dose intravenously once75 mL, Intravenous Push, Once at Radiology exam, 1 dose, Starting on Fri05/17/24 at 1518, Until Fri05/17/24 at 1514, Imaging Protocol Tntogf15 ml lidocaine hydrochloride 20 mg/ml injection (4 sources)Antiarrhythmic, Amide Local AnestheticStart: 05-17-2024 End: 58-52-8067Jkpqsienww, Once PRN Procedure, Starting on Fri05/17/24 at 1345, Until Fri05/17/24 at 1345, Intra-opniacin 500 mg oral tablet (13 sources)Nicotinic Acidtake 1 tablet by mouth every twenty-four hoursNiacin 500 MG 1 tablet with food Orally Once a day Not-Taking/PRNpredniSONE 10 mg oral tablet (11 sources)Start: 12-11-2023 End: 64-91-2943pnkq 1 tablet by mouth once dailyPrednisone 10 mg tablet Discontinued 10 MG PO Daily December 10, 2023 11:00pm December 12, 2023 12:58pm take 1 tablet by mouth every twenty-four hourspredniSONE 10 MG 1 tablet Orally Once a day Activepsyllium 400 mg oral capsule (1 source)Start: 12-11-2023 End: 90-97-7243Hgyjgnja Husk 0.4 gram capsule Discontinued 0.4 GM PO Daily December 10, 2023 11:00pm December 12, 2023 12:58pmPsyllium Husk (10 sources)Start: 12-11-2023 End: 01-62-6677wohl 0.4 g by mouth once dailyPsyllium Husk Discontinued 0.4 GM PO Daily December 11, 2023 12:00am December 12, 2023 1:58pmPsyllium Husk Active Sennosides (1 source)Start: 12-11-2023 End: 17-44-9039spqd 17.2 mg by mouth once daily at bedtimeSennosides Discontinued 17.2 MG PO Daily at bedtime December 11, 2023 12:00am December 12, 2023 1:58pmsennosides, detention 8.6 mg oral tablet (10 sources)Start: 12-11-2023 End: 22-23-1213dahe 2 tablets by mouth once daily at bedtime as neededSennosides 8.6 mg tablet Discontinued 17.2 MG PO Daily at bedtime as needed December 10, 2023 11:00pm December 12, 2023 12:58pmtake 2 tablets by mouth every twenty-four hoursSenna 8.6 MG 2 tablets at bedtime as needed Orally Once a day ActiveVitamin D 25 MCG (1000 UT) (11 sources)take [...] factor deficiency; 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]Onset: 02-15-2022 Resolved: 63-63-3869MvorjakZjipwhrz atherosclerosis and other heart disease (20 sources)Coronary arteriosclerosis; Translations: [Atherosclerotic heart disease of [place] coronary artery without angina pectoris]Onset: 10-22-2022 ChronicCrushing injury or internal injury (20 sources)Traumatic pneumothorax; Translations: [Traumatic pneumothorax, initial encounter]Onset: 467031-90-1533EwcstsdnPiihrchl, dementia, and amnestic and other cognitive disorders (20 sources)Delirium due to multiple etiological factors; Translations: [Delirium due to known physiological condition]Onset: ChronicDisorders of lipid metabolism (20 sources)Hypercholesterolemia; Translations: [Pure hypercholesterolemia, unspecified]Onset: 86-26-0199XbpfgdfZmywucspvk disorders (20 sources)Gastro-esophageal reflux disease with esophagitis; Translations: [Gastroesophageal reflux disease with esophagitis without hemorrhage]Chronic Esophageal disorders (8 sources)Esophageal disorders; Translations: [Gastroesophageal reflux disease with esophagitis, unspecified whether hemorrhage]Essential hypertension (20 sources)Essential hypertension; Translations: [Essential (primary) hypertension]Onset: 84-77-6007WthusnmZhnxv and electrolyte disorders (17 sources)Hyponatremia; Translations: [Hypo-osmolality and hyponatremia]Onset: 05-16-2024 Resolved: 32-49-8705OmzqvayfWxkzaynsxfnuw symptoms and ill-defined conditions (17 sources)Increased frequency of urination; Translations: [Frequency of micturition]EpisodicHyperplasia of prostate (17 sources)Nocturia due to benign prostatic hypertrophy; Translations: [Benign prostatic hyperplasia with lower urinary tract symptoms]ChronicImmunizations and screening for infectious disease (4 sources)Vaccination given; Translations: [Encounter for immunization]Episodic Other aftercare (20 sources)Under care of palliative care physician; Translations: [Encounter for palliative care]Onset: 008626-68-1358GhnqedtuDwpkb connective tissue disease (7 sources)Olecranon bursitis; Translations: [Olecranon bursitis, right elbow] EpisodicOther endocrine disorders (13 sources)Mass of left adrenal gland; Translations: [Other specified disorders of adrenal gland]ChronicOther endocrine disorders (4 sources)Disorder of adrenal gland; Translations: [Other specified disorders of adrenal gland]ChronicOther fractures (20 sources)Closed flail chest; Translations: [Flail chest, initial encounter for closed fracture]Onset: 570331-16-9089KbsyfjheWiwiz fractures (1 source)Closed fracture of multiple ribs; Translations: [Multiple fractures of ribs, unspecified side, initial encounter for closed fracture]Onset: 05-16-2024 EpisodicOther gastrointestinal disorders (20 sources)Drug-induced constipation; Translations: [Drug induced constipation] Onset: 042299-30-2543JtyoorjcPsjmi injuries and conditions due to external causes (4 sources)History of fall; Translations: [History of falling]EpisodicOther injuries and conditions due to external causes (1 source)Injury of head; Translations: [Unspecified injury of head, initial encounter]Onset: 28-94-4216NqicysrfEeifq lower respiratory disease (12 sources)Nodule of lung; Translations: [Solitary pulmonary nodule]08-22-2024 EpisodicComment on above:CT: 9mm nodule EMMIE - 06/2023,CT: unchanged - 12/2023, Other lower respiratory disease (6 sources)Solitary pulmonary [...] embolism and thrombosis of left femoral vein]Onset: 23-25-5126LkovmfouLkcfrbaz; pneumothorax; pulmonary collapse (1 source)Pneumothorax; Translations: [Pneumothorax, unspecified]Onset: 46-37-4952VuifqqyhPcrfphrqi heart disease (5 sources)Pulmonary embolism; Translations: [Single subsegmental pulmonary embolism without acute cor pulmonale]EpisodicResidual codes; unclassified (7 sources)Tobacco user; Translations: [Tobacco use]EpisodicRespiratory failure; insufficiency; arrest (adult) (12 sources)Acute on chronic hypercapnic respiratory failure; Translations: [Acute and chronic respiratory failure with hypercapnia]ChronicRespiratory failure; insufficiency; arrest (adult) (20 sources)Acute respiratory failure; Translations: [Acute respiratory failure with hypoxia]Onset: 993284-21-8957OjkmemwjPcyqnkebwtq; intervertebral disc disorders; other back problems (20 sources)Lumbar spondylosis; Translations: [Spondylosis without myelopathy or radiculopathy, lumbar region]ChronicSpondylosis; intervertebral disc disorders; other back problems (4 sources)Low back pain; Translations: [Low back pain, unspecified]Episodic Substance-related disorders (20 sources)Nicotine dependence; Translations: [Nicotine dependence, cigarettes, uncomplicated]ChronicComment on above:Added secondary to documentation in Social History.Thyroid disorders (20 sources)Subclinical hypothyroidism; Translations: [Other specified hypothyroidism]Onset: 97-79-4118MooxffrKgqnmkzjivlk (4 sources)Elevation of levels of liver transaminase levels; Translations: [Elevation of levels of liver transaminase levels] Past or Other Problems Problem ClassificationProblemDateDocumented DateEpisodic/ChronicOther nutritional; endocrine; and metabolic disorders (7 sources)Overweight; Translations: [Overweight]Onset: 34-84-0309Ghddakfv Sprains and strains (4 sources)Strain of muscle and/or tendon of lower leg; Translations: [Strain of other muscle(s) and tendon(s)of posterior muscle group at lower leg level, left leg, initial encounter] Resolved: 94-58-1368OyzbrqkiFaktgwaumiya (3 sources)Acute bilateral low back pain without sciatica; Translations: [Acute bilateral low back pain without sciatica]Unclassified (3 sources)Elevated transaminase level; Translations: [Elevated transaminase level]Unclassified (2 sources)Single subsegmental pulmonary embolism without acute cor pulmonale Results Test NameValueInterpretationReference RangeFacilityTrauma Office/Clinic Noteon 09-44-8420Neppsu Office/Clinic NoteTrauma Office/Clinic Note History of Present Illness Patient was initially seen at [facility] on 05/16/24 and ultimately transferred to [facility] for his injuries as noted below FINAL [...] who presented as CAT 1 transfer from [facility] for mechanical fall down 8 steps. Unwitnessed fall, - head strike, - loc, - antiplatelet, -anticoagulation. He was found by his after remaining on the floor for 1-2 hours. He was initially taken to [facility] where he was scanned and found to have multiple right sided rib fractures with hydropneumothorax and right sided pelvic fractures. Right pigtail catheter placed prior to transfer to [facility] for ortho and trauma work up. Upon [...] month. Was scheduled to be seen at [facility] but had issues getting there because of the commute so the patient has come to our clinic for removal of the G-tube. Patient denies any pain, redness, drainage from the area, has been tolerating regular diet without issue, no issues with swallowing, no vo (more content not included)...[facility] HospitalComment on above:Result Comment: Electronically Signed By: Fiordaliza Jara PA-C\.br\Date and Time Signed: 08/18/24 10:17 EST\.br\Electronically Co-Signed By: Leatha Spring MD\.br\Date and Time Co-Signed: 08/18/24 11:14 ESTCBCon 62-09-2761Xzvxbwxwzmo distribution width (RBC) [Ratio]15.5 %High11.5-15.0UnVeterans Health AdministrationComment on above:Performed By: #### [id number] #### [facility] ([facility]) [address] [place], [place] [address]MEJXYYYCNNC MEAN CORPUSCULAR HEMOGLOBIN CONCENTRATION (G/DL) BY MYTXBGFJR78.4 g/dLLow32.0-35.0UnVeterans Health AdministrationComment on above:Performed By: #### [id number] #### [facility] ([facility]) [address] [place], [place] [address]Wpzinlxcxy (Bld) [Volume fraction]30.3 %Low39.0-55.0UnVeterans Health AdministrationComment on above:Performed By: #### [id number] #### [facility] ([facility]) [address] [place] [place], [place] [address]Ajmapkavgt (Bld) [Mass/Vol]9.5 g/dLLow13.0-17.0UnVeterans Health AdministrationComment on above:Performed By: #### [id number] #### [facility] ([facility]) [address] [place] [place], [place] [address]NGD (RBC) [Entitic mass]30.4 qsCqinmd18.0-33.0UnVeterans Health AdministrationComment on above:Performed By: #### [id number] #### [facility] ([facility]) [address] [place] [address]CNX (RBC) [Entitic vol]97.1 tLFdxecg43.0-98.0UnVeterans Health AdministrationComment on above:Performed By: #### [id number] #### [facility] ([facility]) [address] [place] [address]EJBWDMYUW (10*3/UL) IN BLOOD AUTOMATED [id number] 10*3/uLNormal 150-400UnVeterans Health AdministrationComment on above:Performed By: #### [id number] #### [facility] ([facility]) [address] [place] [address]RQU (Bld) [#/Vol]3.12 10*6/uLLow4.20-5.70UnVeterans Health AdministrationComment on above:Performed By: #### [id number] #### [facility] ([facility]) [address] [place] [address]TNE (Bld) [#/Vol]8.93 10*3/uLNormal4.00-10.60UnVeterans Health AdministrationComment on above:Performed By: #### [id number] #### [facility] ([facility]) [address] [place], [place] [address]MSXKBYAHMHDGW METABOLIC PANELon 77-76-6961Awqrvxj [Mass/Vol]3.4 g/dLLow3.5-5.7UnVeterans Health AdministrationComment on above:Performed By: #### [id number] #### [facility] ([facility]) [address] [place], [place] [address]IYA [Catalytic activity/Vol]87 U/UBeqdfs38-758ZptgzpimswVeterans Health AdministrationComment on above:Performed By: #### [id number] #### [facility] ([facility]) [address] [place], [place] [address]SHE [Catalytic activity/Vol]13 U/LNormal7-52UnVeterans Health AdministrationComment on above:Performed By: #### [id number] #### [facility] ([facility] [address] [place], [place] [address]Hyeuy gap [Moles/Vol]6 mmol/LLow7-20UnVeterans Health AdministrationComment on above:Performed By: #### [id number] #### [facility] ([facility]) [address] [place], [place] [address]ITS [Catalytic activity/Vol]14 U/LMivpfl09-84HejsrzykkiVeterans Health AdministrationComment on above:Performed By: #### [id number] #### [facility] ([facility]) [address] [place], [place] [address]Paqvxavxj [Mass/Vol]0.2 mg/dLLow0.3-1.0UnVeterans Health AdministrationComment on above:Performed By: #### [id number] #### [facility] ([facility]) [address] [place], [place] [address]Lticgat [Mass/Vol]9.0 mg/dLNormal8.6-10.3UnVeterans Health AdministrationComment on above:Performed By: #### [id number] #### [facility] ([facility]) [address] [place], [place] [address]Nharmhbh [Moles/Vol]101 mmol/SMufuye16-342XgklijvcbkVeterans Health AdministrationComment on above:Performed By: #### [id number] #### [facility] ([facility]) [address] [place], [place] [address]CV4 [Moles/Vol]32 mmol/NTmma96-24RgibmzeuvkVeterans Health AdministrationComment on above:Performed By: #### [id number] #### [facility] ([facility]) [address] [place], [place] [address]Wetmudwvtb [Mass/Vol]0.66 mg/dLLow0.70-1.30UnVeterans Health AdministrationComment on above:Performed By: #### [id number] #### [facility] ([facility]) [address] [place], [place] [address]LPRUVQRUME FILTRATION RATE ML/MIN/1.73 SQ M.VRDDDUSYC34.1 mL/min/1.73m*2Normal>60.0UnVeterans Health AdministrationComment on above: Result Comment: [facility]???s estimated glomerular filtration rate (eGFR) will no [...] group of individuals.Performed By: #### [id number] #### [facility] ([facility]) [address] [place] [address]Eoljrdg [Mass/Vol]83 mg/gAVzhihl08-309NwnqczckiwVeterans Health AdministrationComment on above:Performed By: #### [id number] #### [facility] ([facility]) [address] [place] [address]Grcgmpaxf [Moles/Vol]4.2 mmol/LNormal3.5-5.1UnVeterans Health AdministrationComment on above:Performed By: #### [id number] #### [facility] ([facility]) [address] [place], [place] [address]Oiviazp [Mass/Vol]6.9 g/dLNormal6.0-8.3UnVeterans Health AdministrationComment on above:Performed By: #### [id number] #### [facility] ([facility]) [address] [place] [address]Znjnur [Moles/Vol]135 mmol/VEky412-386PpovetisviVeterans Health AdministrationComment on above:Performed By: #### [id number] #### [facility] ([facility]) [address] [place], [place] [address]Besy nitrogen [Mass/Vol]24 mg/dLNormal7-25UnVeterans Health AdministrationComment on above:Performed By: #### [id number] #### [facility] ([facility]) [address] [place] [address]KOSG NITROGEN/CREATININE (MASS RATIO) IN SER/PLAS36.4Normal [facility] HospitalComment on above:Performed By: #### [id number] #### [facility] ([facility]) [address] [address]CVSRNDEEFzc 39-42-4650Dleryqlzs [Mass/Vol]2.1 mg/dLNormal1.9-2.[address] [facility] HospitalComment on above:Performed By: #### [id number] #### [facility] ([facility]) [address] [place] [address]RKANXDDIIUup 45-76-9810Ovfcapxby [Mass/Vol]3.3 mg/dLNormal 2.5-5.0UnVeterans Health AdministrationComment on above:Performed By: #### [id number] #### [facility] ([facility]) [address] [place] [address]UJVZF METABOLIC PANELon 18-58-9153Ysrnk gap [Moles/Vol]9 mmol/L Normal7-20UnVeterans Health AdministrationComment on above:Performed By: #### [id number] #### [facility] ([facility]) [address] [place] [address]Ieqlxae [Mass/Vol]9.4 mg/dLNormal8.6-10.3UnVeterans Health AdministrationComment on above:Performed By: #### [id number] #### [facility] ([facility]) [address] [place] [address]Dzcipzbo [Moles/Vol]102 mmol/OQqujbz00-629SpgknbbkbmVeterans Health AdministrationComment on above:Performed By: #### [id number] #### [facility] ([facility]) [address] [place] [address]NT9 [Moles/Vol]28 mmol/BRgilwm98-36AosyrilcihVeterans Health AdministrationComment on above:Performed By: #### [id number] #### [facility] ([facility]) [address] [place] [address]Dyoehkjwdj [Mass/Vol]0.70 mg/dLNormal0.70-1.30UnVeterans Health AdministrationComment on above:Performed By: #### [id number] #### [facility] ([facility]) [address] [place] [address]WNYGALSKKZ FILTRATION RATE ML/MIN/1.73 SQ M.PTZBFYAOB29.4 mL/min/1.73m*2Normal>60.0UnVeterans Health AdministrationComment on above: Result Comment: [facility]???s estimated glomerular filtration rate (eGFR) will no [...] group of individuals.Performed By: #### [id number] #### [facility] ([facility]) [address] [place] [address]Gkpoqne [Mass/Vol]106 mg/vTVofx58-364SucmhjkppqVeterans Health AdministrationComment on above:Performed By: #### [id number] #### [facility] ([facility]) [address] [place] [place] [address]Zlkxxrsri [Moles/Vol]4.0 mmol/LNormal3.5-5.1UnVeterans Health AdministrationComment on above:Performed By: #### [id number] #### [facility] ([facility]) [address] [place] [address]Nbzwds [Moles/Vol]135 mmol/RYog084-291LkexrwcbkwVeterans Health AdministrationComment on above:Performed By: #### [id number] #### [facility] ([facility]) [address] [place] [address]Owbz nitrogen [Mass/Vol]26 mg/dLHigh7-25UnVeterans Health AdministrationComment on above:Performed By: #### [id number] #### [facility] ([facility]) [address] [place] [place] [address]TXRV NITROGEN/CREATININE (MASS RATIO) IN SER/PLAS37.1Normal [facility] HospitalComment on above:Performed By: #### [id number] #### [facility] ([facility]) [address] [place], [place] [address]ZCI WITH AUTO DIFFERENTIALon 35-13-8399Jzalelxfa (Bld) [#/Vol] 0.05 10*3/uLNormal0.00-0.20UnVeterans Health AdministrationComment on above: Performed By: #### [id number] #### [facility] ([facility]) [address] [place] [address]Naspvgrdv/100 WBC (Bld)0.7 %Normal0.0-1.0UnVeterans Health AdministrationComment on above:Performed By: #### [id number] #### [facility] ([facility]) [address] [place], [place] [address]Vvpetgjxfeb (Bld) [#/Vol]0.37 10*3/uLNormal0.00-0.50UnVeterans Health AdministrationComment on above:Performed By: #### [id number] #### [facility] ([facility]) [address] [place] [address]Xlvyefpkudw/100 WBC (Bld)4.8 %Normal0.0-6.0UnVeterans Health AdministrationComment on above:Performed By: #### [id number] #### [facility] ([facility]) [address] [place] [address]Smkhcuuoafa distribution width (RBC) [Ratio]15.8 %High11.5-15.[address] [facility] HospitalComment on above:Performed By: #### [id number] #### [facility] ([facility]) [address] [place] [address]WQAWTGTUMCQ MEAN CORPUSCULAR HEMOGLOBIN CONCENTRATION (G/DL) BY AVSMRDIBS91.4 g/dLLow32.0-35.0UnVeterans Health AdministrationComment on above:Performed By: #### [id number] #### [facility] ([facility]) [address] [place] [address]Xqhaizfjzy (Bld) [Volume fraction]30.3 %Low39.0-55.0UnVeterans Health AdministrationComment on above:Performed By: #### [id number] #### [facility] ([facility]) [address] [place] [address]Pdzqsdbmzr (Bld) [Mass/Vol]9.5 g/dLLow13.0-17.0UnVeterans Health AdministrationComment on above:Performed By: #### [id number] #### [facility] ([facility]) [address] [place] [address]Lhrcwuuu granulocytes (Bld) [#/Vol]0.06 10*3/uLNormal0.00-0.[address] [facility] HospitalComment on above:Performed By: #### [id number] #### [facility] ([facility]) [address] [place] [address]Eazkqtqt granulocytes/100 WBC (Bld)0.8 %Normal0.0-1.0UnVeterans Health AdministrationComment on above:Performed By: #### [id number] #### [facility] ([facility]) [address] [place] [address]Yeqeudvymne (Bld) [#/Vol]1.29 10*3/uLNormal1.20-4.00UnVeterans Health AdministrationComment on above:Performed By: #### [id number] #### [facility] ([facility]) [address] [place] [address]Etjhxhzacoh/100 WBC (Bld)16.9 %Low20.0-45.0UnVeterans Health AdministrationComment on above:Performed By: #### [id number] #### [facility] ([facility] [address] [place] [address]HTW (RBC) [Entitic mass]30.6 ocHafcvu90.0-33.0UnVeterans Health AdministrationComment on above:Performed By: #### [id number] #### [facility] ([facility]) [address] [place] [address]MQL (RBC) [Entitic vol]97.7 fDWspdji18.0-98.0UnVeterans Health AdministrationComment on above:Performed By: #### [id number] #### [facility] ([facility]) [address] [place] [address]Olywwxevj (Bld) [#/Vol]0.59 10*3/uLNormal0.10-1.00UnVeterans Health AdministrationComment on above:Performed By: #### [id number] #### [facility] ([facility]) [address] [place] [address]Lqkcnxltz/100 WBC (Bld)7.7 %Normal5.0-12.0UnVeterans Health AdministrationComment on above:Performed By: #### [id number] #### [facility] ([facility]) [address] [place] [place] [address]Gftxtuyumxc (Bld) [#/Vol]5.28 10*3/uLNormal1.60-7.60UnVeterans Health AdministrationComment on above:Performed By: #### [id number] #### [facility] ([facility]) [address] [place] [address]Cogpheglghw/100 WBC (Bld)69.1 %Blmqic19.0-72.0UnVeterans Health AdministrationComment on above:Performed By: #### [id number] #### [facility] ([facility]) [address] [place] [address]TUUF (PER 100 WBCS) BY AUTOMATED COUNT0.0 %Jnmobu5OytrykncvtVeterans Health AdministrationComment on above:Performed By: #### [id number] #### [facility] ([facility]) [address] [place] [address]JPRVVUSFP (10*3/UL) IN BLOOD AUTOMATED [id number] 10*3/uLNormal 150-400UnVeterans Health AdministrationComment on above:Performed By: #### [id number] #### [facility] ([facility]) [address] [place] [address]UXW (Bld) [#/Vol]3.10 10*6/uLLow4.20-5.70UnVeterans Health AdministrationComment on above:Performed By: #### [id number] #### [facility] ([facility]) [address] [place] [place] [address]RJJ (Bld) [#/Vol]7.64 10*3/uLNormal4.00-10.60UnVeterans Health AdministrationComment on above:Performed By: #### [id number] #### [facility] ([facility]) [address] [place] [place] [address]JVSHNSOIJgb 00-55-2496Tjfskfuta [Mass/Vol]2.1 mg/dLNormal1.9-2.[address] [facility] HospitalComment on above:Performed By: #### [id number] #### [facility] ([facility]) [address] [place] [address]TZWCETZREQtg 47-30-5087Tmjyvzvwm [Mass/Vol]3.9 mg/dLNormal 2.5-5.0UnVeterans Health AdministrationComment on above:Performed By: #### [id number] #### [facility] ([facility]) [address] [place] [place] [address]VYXiv 86-84-9609Qupkvehsgyc distribution width (RBC) [Ratio]15.3 %High11.5-15.0UnVeterans Health AdministrationComment on above:Performed By: #### [id number] #### [facility] ([facility]) [address] [place] [address]IPVPNALOWLK MEAN CORPUSCULAR HEMOGLOBIN CONCENTRATION (G/DL) BY CSWCILPTR38.6 g/dLLow32.0-35.0UnVeterans Health AdministrationComment on above:Performed By: #### [id number] #### [facility] ([facility]) [address] [place] [place] [address]Bjmuxvqonp (Bld) [Volume fraction]31.0 %Low39.0-55.0UnVeterans Health AdministrationComment on above:Performed By: #### [id number] #### [facility] ([facility]) [address] [place] [address]Xqegsjprqe (Bld) [Mass/Vol]9.8 g/dLLow13.0-17.0UnVeterans Health AdministrationComment on above:Performed By: #### [id number] #### [facility] ([facility]) [address] [place] [address]LYF (RBC) [Entitic mass]30.4 jhWmnwyb96.0-33.0UnVeterans Health AdministrationComment on above:Performed By: #### [id number] #### [facility] ([facility]) [address] [place], [place] [address]PTA (RBC) [Entitic vol]96.3 nWRwkdjj07.0-98.0UnVeterans Health AdministrationComment on above:Performed By: #### [id number] #### [facility] ([facility]) [address] [place] [place] [address]TNNQCEJUO (10*3/UL) IN BLOOD AUTOMATED [id number] 10*3/uLNormal 150-400UnVeterans Health AdministrationComment on above:Performed By: #### [id number] #### [facility] ([facility]) [address] [place] [place] [address]VAP (Bld) [#/Vol]3.22 10*6/uLLow4.20-5.70UnVeterans Health AdministrationComment on above:Performed By: #### [id number] #### [facility] ([facility]) [address] [place] [address]FYK (Bld) [#/Vol]8.44 10*3/uLNormal4.00-10.60UnVeterans Health AdministrationComment on above:Performed By: #### [id number] #### [facility] ([facility]) [address] [place], [place] [address]HGKXFGKJYDZFD METABOLIC PANELon 99-62-5407Berhwwz [Mass/Vol]3.6 g/dLNormal3.5-5.7UnVeterans Health AdministrationComment on above:Performed By: #### [id number] #### [facility] ([facility]) [address] [place], [place] [address]VYI [Catalytic activity/Vol]99 U/DSzdqzo01-026AnskwzgxkcVeterans Health AdministrationComment on above:Performed By: #### [id number] #### [facility] ([facility]) [address] [place], [place] [address]SKR [Catalytic activity/Vol]15 U/LNormal7-52UnVeterans Health AdministrationComment on above:Performed By: #### [id number] #### [facility] ([facility]) [address] [place], [place] [address]Hogpk gap [Moles/Vol]7 mmol/LNormal7-20UnVeterans Health AdministrationComment on above:Performed By: #### [id number] #### [facility] ([facility]) [address] [place], [place] [address]SLH [Catalytic activity/Vol]14 U/KOuebrf15-70MyygfbiopbVeterans Health AdministrationComment on above:Performed By: #### [id number] #### [facility] ([facility]) [address] [place], [place] [address]Owocjwqgt [Mass/Vol]0.3 mg/dLNormal0.3-1.0UnVeterans Health AdministrationComment on above:Performed By: #### [id number] #### [facility] ([facility]) [address] [place] [place], [place] [address]Nnvnfpi [Mass/Vol]9.9 mg/dLNormal8.6-10.3UnVeterans Health AdministrationComment on above:Performed By: #### [id number] #### [facility] ([facility]) [address] [place] [address]Nmzrooxp [Moles/Vol]100 mmol/YPjmnpd04-790EnsmfkeoajVeterans Health AdministrationComment on above:Performed By: #### [id number] #### [facility] ([facility]) [address] [place] [address]MJ6 [Moles/Vol]31 mmol/ZTijzhd76-57RxobyedajbVeterans Health AdministrationComment on above:Performed By: #### [id number] #### [facility] ([facility]) [address] [place] [address]Njprtupsyc [Mass/Vol]0.54 mg/dLLow0.70-1.30UnVeterans Health AdministrationComment on above:Performed By: #### [id number] #### [facility] ([facility]) [address] [place] [address]SASQAUCATX FILTRATION RATE ML/MIN/1.73 SQ M.OUUYMVIDF73.9 mL/min/1.73m*2Normal>60.0UnVeterans Health AdministrationComment on above: Result Comment: [facility]???s estimated glomerular filtration rate (eGFR) will no [...] group of individuals.Performed By: #### [id number] #### [facility] ([facility]) [address] [place] [address]Iatwrsg [Mass/Vol]98 mg/sTWbrhed64-907PeknhiaowuVeterans Health AdministrationComment on above:Performed By: #### [id number] #### [facility] ([facility]) [address] [place] [address]Tvtuoocet [Moles/Vol]4.2 mmol/LNormal3.5-5.1UnVeterans Health AdministrationComment on above:Performed By: #### [id number] #### [facility] ([facility]) [address] [place] [address]Rggmzjp [Mass/Vol]7.5 g/dLNormal6.0-8.3UnVeterans Health AdministrationComment on above:Performed By: #### [id number] #### [facility] ([facility]) [address] [place] [address]Ttqyht [Moles/Vol]134 mmol/QSnl173-257BuxyknbfsrVeterans Health AdministrationComment on above:Performed By: #### [id number] #### [facility] ([facility]) [address] [place] [address]Pwfs nitrogen [Mass/Vol]24 mg/dLNormal7-25UnVeterans Health AdministrationComment on above:Performed By: #### [id number] #### [facility] ([facility]) [address] [place] [address]LJZR NITROGEN/CREATININE (MASS RATIO) IN SER/PLAS44.4Normal [facility] HospitalComment on above:Performed By: #### [id number] #### [facility] ([facility]) [address] [place] [address]FNQXZRPCPnl 18-41-3655Tjmmthsne [Mass/Vol]1.8 mg/dLLow1.9-2.[address] [facility] HospitalComment on above:Performed By: #### [id number] #### [facility] ([facility]) [address] [place] [address]KZCWZKZVQYxm 54-21-3167Frhrxjqeu [Mass/Vol]2.0 mg/dLLow2.5-5.[address] [facility] HospitalComment on above:Performed By: #### [id number] #### [facility] ([facility]) [address] [place] [address]YEVFSGWPIRGAGfp 83-55-6674UGSMDVT?UnknownNormalUniversCleveland Clinic Avon HospitalComment on above:Performed By: #### [id number] #### [facility] ([facility]) [address] [place], [place] [address]Dyzwdxvvp [Mass/Vol]106 mg/fPFusian94-464FzxkwxliefVeterans Health AdministrationComment on above:Result Comment: TRIGLYCERIDE REFERENCE RANGE: 20 YEARS AND OLDER CARDIOVASCULAR RISK LESS THAN 150 mg/dL LOW RISK 150 TO 199 mg/dL BORDERLINE RISK 200 mg/dL AND GREATER HIGH RISKPerformed By: #### [id number] #### [facility] ([facility]) [address] [place], [place] [address]WNIOK METABOLIC PANELon 63-29-4751Zzwks gap [Moles/Vol]7 mmol/L Normal7-20UnVeterans Health AdministrationComment on above:Performed By: #### [id number] #### [facility] ([facility]) [address] [place], [place] [address]Zcviwdn [Mass/Vol]9.5 mg/dLNormal8.6-10.3UnVeterans Health AdministrationComment on above:Performed By: #### [id number] #### [facility] ([facility]) [address] [place], [place] [address]Ggswggmj [Moles/Vol]101 mmol/WVavecs31-742VntbxjztknVeterans Health AdministrationComment on above:Performed By: #### [id number] #### [facility] ([facility]) [address] [place], [place] [address]IE4 [Moles/Vol]32 mmol/IXgzj30-95KxdnkckypfVeterans Health AdministrationComment on above:Performed By: #### [id number] #### [facility] ([facility]) [address] [place], [place] [address]Clqthkgdbi [Mass/Vol]0.56 mg/dLLow0.70-1.30UnVeterans Health AdministrationComment on above:Performed By: #### [id number] #### [facility] ([facility]) [address] [place], [place] [address]FVCBOTUJZU FILTRATION RATE ML/MIN/1.73 SQ M.CKEKZWWMN63.8 mL/min/1.73m*2Normal>60.0UnVeterans Health AdministrationComment on above: Result Comment: [facility]???s estimated glomerular filtration rate (eGFR) will no [...] group of individuals.Performed By: #### [id number] #### [facility] ([facility]) [address] [place], [place] [address]Bsgqgus [Mass/Vol]100 mg/oLYbldfr61-777AmiemuspykVeterans Health AdministrationComment on above:Performed By: #### [id number] #### [facility] ([facility]) [address] [place], [place] [address]Oezauxkly [Moles/Vol]4.2 mmol/LNormal3.5-5.1UnVeterans Health AdministrationComment on above:Performed By: #### [id number] #### [facility] ([facility]) [address] [place], [place] [address]Uytwin [Moles/Vol]136 mmol/UFwtsxv231-246NeltmiwearVeterans Health AdministrationComment on above:Performed By: #### [id number] #### [facility] ([facility]) [address] [place], [place] [address]Yuqk nitrogen [Mass/Vol]31 mg/dLHigh7-25UnVeterans Health AdministrationComment on above:Performed By: #### [id number] #### [facility] ([facility]) [address] [place], [place] [address]MVZR NITROGEN/CREATININE (MASS RATIO) IN SER/PLAS55.4Normal [facility] HospitalComment on above:Performed By: #### [id number] #### [facility] ([facility]) [address] [place], [place] [address]FGJOIXNIDpo 73-89-9893Azdnjmzpv [Mass/Vol]1.9 mg/dLNormal1.9-2.[address] [facility] HospitalComment on above:Performed By: #### [id number] #### [facility] ([facility]) [address] [place], [place] [address]TOZ WITH AUTO DIFFERENTIALon 17-83-7175Pwbvyvejf (Bld) [#/Vol] 0.03 10*3/uLNormal0.00-0.20UnVeterans Health AdministrationComment on above: Performed By: #### [id number] #### [facility] ([facility]) [address] [place], [place] [address]Wugfzmhbh/100 WBC (Bld)0.4 %Normal0.0-1.0UnVeterans Health AdministrationComment on above:Performed By: #### [id number] #### [facility] ([facility]) [address] [place], [place] [address]Leizcddbump (Bld) [#/Vol]0.42 10*3/uLNormal0.00-0.50UnVeterans Health AdministrationComment on above:Performed By: #### [id number] #### [facility] ([facility]) [address] [place], [place] [address]Frhbqtqjnjl/100 WBC (Bld)5.6 %Normal0.0-6.0UnVeterans Health AdministrationComment on above:Performed By: #### [id number] #### [facility] ([facility]) [address] [place], [place] [address]Keyoesviuhm distribution width (RBC) [Ratio]15.9 %High11.5-15.[address] [facility] HospitalComment on above:Performed By: #### [id number] #### [facility] ([facility]) [address] [place], [place] [address]ZXWVHWERHHA MEAN CORPUSCULAR HEMOGLOBIN CONCENTRATION (G/DL) BY ISEMWPUSR80.2 g/dLLow32.0-35.0UnVeterans Health AdministrationComment on above:Performed By: #### [id number] #### [facility] ([facility] [address] [facility] [place] [place], [place] [address]Budbntsajs (Bld) [Volume fraction]28.2 %Low39.0-55.0UnVeterans Health AdministrationComment on above:Performed By: #### [id number] #### [facility] ([facility]) [address] [facility] [place], [place] [address]Peslgazlow (Bld) [Mass/Vol]8.8 g/dLLow13.0-17.0UnVeterans Health AdministrationComment on above:Performed By: #### [id number] #### [facility] ([facility]) [address] [place], [place] [address]Xboazvmt granulocytes (Bld) [#/Vol]0.04 10*3/uLNormal0.00-0.[address] [facility] HospitalComment on above:Performed By: #### [id number] #### [facility] ([facility]) [address] [place], [place] [address]Rdfvizgl granulocytes/100 WBC (Bld)0.5 %Normal0.0-1.0UnVeterans Health AdministrationComment on above:Performed By: #### [id number] #### [facility] ([facility]) [address] [place], [place] [address]Vhkzilkafiw (Bld) [#/Vol]1.18 10*3/uLLow1.20-4.00UnVeterans Health AdministrationComment on above:Performed By: #### [id number] #### [facility] ([facility]) [address] [place], [place] [address]Pvpxrmowulg/100 WBC (Bld)15.6 %Low20.0-45.0UnVeterans Health AdministrationComment on above:Performed By: #### [id number] #### [facility] ([facility]) [address] [facility] [place], [place] [address]OGI (RBC) [Entitic mass]30.6 zmAiursr60.0-33.0UnVeterans Health AdministrationComment on above:Performed By: #### [id number] #### [facility] ([facility]) [address] [place] [address]INJ (RBC) [Entitic vol]97.9 gMYyuhhc42.0-98.0UnVeterans Health AdministrationComment on above:Performed By: #### [id number] #### [facility] ([facility]) [address] [place] [address]Pmmuuciyq (Bld) [#/Vol]0.53 10*3/uLNormal0.10-1.00UnVeterans Health AdministrationComment on above:Performed By: #### [id number] #### [facility] ([facility]) [address] [place] [address]Ejmobpmfj/100 WBC (Bld)7.0 %Normal5.0-12.0UnVeterans Health AdministrationComment on above:Performed By: #### [id number] #### [facility] ([facility]) [address] [place] [address]Wgxcecanyoh (Bld) [#/Vol]5.34 10*3/uLNormal1.60-7.60UnVeterans Health AdministrationComment on above:Performed By: #### [id number] #### [facility] ([facility]) [address] [place] [address]Cuhzbajuxpq/100 WBC (Bld)70.9 %Beramd94.0-72.0UnVeterans Health AdministrationComment on above:Performed By: #### [id number] #### [facility] ([facility]) [address] [place], [place] [address]USCA (PER 100 WBCS) BY AUTOMATED COUNT0.0 %Cxlmhh8YhnquumpjjVeterans Health AdministrationComment on above:Performed By: #### [id number] #### [facility] ([facility]) [address] [place] [address]RYNJVOXCW (10*3/UL) IN BLOOD AUTOMATED [id number] 10*3/uLNormal 150-400UnVeterans Health AdministrationComment on above:Performed By: #### [id number] #### [facility] ([facility]) [address] [place] [address]UPN (Bld) [#/Vol]2.88 10*6/uLLow4.20-5.70UnVeterans Health AdministrationComment on above:Performed By: #### [id number] #### [facility] ([facility]) [address] [place] [address]FXU (Bld) [#/Vol]7.54 10*3/uLNormal4.00-10.60UnVeterans Health AdministrationComment on above:Performed By: #### [id number] #### [facility] ([facility]) [address] [place] [address]APMXDPMJTPPVO METABOLIC PANELon 57-42-2249Atkydza [Mass/Vol]3.3 g/dLLow3.5-5.7UnVeterans Health AdministrationComment on above:Performed By: #### [id number] #### [facility] ([facility]) [address] [place] [address]PEY [Catalytic activity/Vol]88 U/QMljufa42-579IzhaosrrjiVeterans Health AdministrationComment on above:Performed By: #### [id number] #### [facility] ([facility]) [address] [address]JFZ [Catalytic activity/Vol]13 U/LNormal7-52UnVeterans Health AdministrationComment on above:Performed By: #### [id number] #### [facility] ([facility]) [address] [place] [address]Xrpga gap [Moles/Vol]6 mmol/LLow7-20UnVeterans Health AdministrationComment on above:Performed By: #### [id number] #### [facility] ([facility]) [address] [place] [address]GFS [Catalytic activity/Vol]16 U/POvbjep60-33OwpngdhksaVeterans Health AdministrationComment on above:Performed By: #### [id number] #### [facility] ([facility]) [address] [place] [address]Dwlqlrypc [Mass/Vol]0.3 mg/dLNormal0.3-1.0UnVeterans Health AdministrationComment on above:Performed By: #### [id number] #### [facility] ([facility]) [address] [place] [address]Dtauowh [Mass/Vol]9.4 mg/dLNormal8.6-10.3UnVeterans Health AdministrationComment on above:Performed By: #### [id number] #### [facility] ([facility]) [address] [place] [address]Xbuscfep [Moles/Vol]99 mmol/CYqwqsf54-302ThedtnsgcfVeterans Health AdministrationComment on above:Performed By: #### [id number] #### [facility] ([facility]) [address] [place] [address]QM7 [Moles/Vol]32 mmol/KVdue66-59NbimrjhglxVeterans Health AdministrationComment on above:Performed By: #### [id number] #### [facility] ([facility]) [address] [place] [address]Ucpgzagxld [Mass/Vol]0.71 mg/dLNormal0.70-1.30UnVeterans Health AdministrationComment on above:Performed By: #### [id number] #### [facility] ([facility]) [address] [place] [address]CWIKNJCGBD FILTRATION RATE ML/MIN/1.73 SQ M.XGYJURVLD01.0 mL/min/1.73m*2Normal>60.0UnVeterans Health AdministrationComment on above: Result Comment: [facility]???s estimated glomerular filtration rate (eGFR) will no [...] affect anyone group of individuals.Performed By: #### [id number] #### [facility] ([facility]) [address] [place], [place] [address]Qngoyea [Mass/Vol]87 mg/lDVeyadc39-313DhnhdszygiVeterans Health AdministrationComment on above:Performed By: #### [id number] #### [facility] ([facility]) [address] [place], [place] [address]Hxfvuvwhd [Moles/Vol]4.4 mmol/LNormal3.5-5.1UnVeterans Health AdministrationComment on above:Performed By: #### [id number] #### [facility] ([facility]) [address] [place], [place] [address]Pztxnab [Mass/Vol]6.9 g/dLNormal6.0-8.3UnVeterans Health AdministrationComment on above:Performed By: #### [id number] #### [facility] ([facility]) [address] [place], [place] [address]Irisej [Moles/Vol]133 mmol/ESvi597-484GfzmaruokbVeterans Health AdministrationComment on above:Performed By: #### [id number] #### [facility] ([facility]) [address] [place], [place] [address]Ofsp nitrogen [Mass/Vol]61 mg/dLHigh7-25UnVeterans Health AdministrationComment on above:Performed By: #### [id number] #### [facility] ([facility]) [address] [place], [place] [address]QNFE NITROGEN/CREATININE (MASS RATIO) IN SER/PLAS85.9Normal [facility] HospitalComment on above:Performed By: #### [id number] #### [facility] ([facility]) [address] [place], [place] [address]SEGWYISGCqu 72-13-7296Eonldwgpd [Mass/Vol]2.2 mg/dLNormal1.9-2.[address] [facility] HospitalComment on above:Performed By: #### [id number] #### [facility] ([facility]) [address] [address]OOCIRSSOUBub 84-95-9077Qouqibtdb [Mass/Vol]3.1 mg/dLNormal 2.5-5.0UnVeterans Health AdministrationComment on above:Performed By: #### [id number] #### [facility] ([facility]) [address] [place] [address]R9, FREEon 46-61-4136SMXQQNOFH (T4) FREE (NG/DL) IN SER/PLAS1.06 ng/dLNormal0.71-1.85UnVeterans Health AdministrationComment on above: Performed By: #### [id number] #### [facility] ([facility]) [address] [place] [address]DQKls 06-55-5503IQFQCPYSNVI (MIU/L) IN SER/PLAS BY DETECTION LIMIT <= 0.05 MIU/L2.15 mIU/LNormal0.34-5.60UnVeterans Health Administration Comment on above:Performed By: #### [id number] #### [facility] ([facility]) [address] [place] [address]NFHTK METABOLIC PANELon 10-30-67[address]Tszar gap [Moles/Vol]6 mmol/L Low7-20UnVeterans Health AdministrationComment on above:Performed By: #### [id number] #### [facility] ([facility]) [address] [place] [address]Qnrccim [Mass/Vol]9.6 mg/dLNormal8.6-10.3UnVeterans Health AdministrationComment on above:Performed By: #### [id number] #### [facility] ([facility]) [address] [place] [address]Rlvxismn [Moles/Vol]99 mmol/IBtjqgl63-129UaeunlezaxVeterans Health AdministrationComment on above:Performed By: #### [id number] #### [facility] ([facility]) [address] [place] [address]SL2 [Moles/Vol]31 mmol/GSmjyfw18-58MqgpivhnynVeterans Health AdministrationComment on above:Performed By: #### [id number] #### [facility] ([facility]) [address] [place] [address]Dcccvaygrh [Mass/Vol]0.96 mg/dLNormal0.70-1.30UnVeterans Health AdministrationComment on above:Performed By: #### [id number] #### [facility] ([facility]) [address] [place] [address]JDTALDPRZQ FILTRATION RATE ML/MIN/1.73 SQ M.EOQCYZHJE95.4 mL/min/1.73m*2Normal>60.0UnVeterans Health AdministrationComment on above: Result Comment: [facility]???s estimated glomerular filtration rate (eGFR) will no [...] affect anyone group of individuals.Performed By: #### [id number] #### [facility] ([facility]) [address] [place] [address]Uuzcfsk [Mass/Vol]104 mg/lMSkax15-664UuvuldeuqgVeterans Health AdministrationComment on above:Performed By: #### [id number] #### [facility] ([facility]) [address] [place] [address]Sigveipin [Moles/Vol]5.3 mmol/LHigh3.5-5.1UnVeterans Health AdministrationComment on above:Performed By: #### [id number] #### [facility] ([facility]) [address] [place] [address]Gzgwqc [Moles/Vol]131 mmol/VGzq093-706GqotvfiuxlVeterans Health AdministrationComment on above:Performed By: #### [id number] #### [facility] ([facility]) [address] [place] [address]Bujs nitrogen [Mass/Vol]61 mg/dLHigh7-25UnVeterans Health AdministrationComment on above:Performed By: #### [id number] #### [facility] ([facility]) [address] [place], [place] [address]TBIQ NITROGEN/CREATININE (MASS RATIO) IN SER/PLAS63.5Normal [facility] HospitalComment on above:Performed By: #### [id number] #### [facility] ([facility]) [address] [place], [place] [address]MVT WITH AUTO DIFFERENTIALon 05-43-9697Nxvfnewoz (Bld) [#/Vol] 0.03 10*3/uLNormal0.00-0.20UnVeterans Health AdministrationComment on above: Performed By: #### [id number] #### [facility] ([facility]) [address] [place], [place] [address]Ujyaurigx/100 WBC (Bld)0.4 %Normal0.0-1.0UnVeterans Health AdministrationComment on above:Performed By: #### [id number] #### [facility] ([facility]) [address] [place], [place] [address]Tprnopbrexe (Bld) [#/Vol]0.23 10*3/uLNormal0.00-0.50UnVeterans Health AdministrationComment on above:Performed By: #### [id number] #### [facility] ([facility]) [address] [place], [place] [address]Mdnhlumvzvv/100 WBC (Bld)3.0 %Normal0.0-6.0UnVeterans Health AdministrationComment on above:Performed By: #### [id number] #### [facility] ([facility]) [address] [place] [address]Pycjtlelvcy distribution width (RBC) [Ratio]15.9 %High11.5-15.[address] [facility] HospitalComment on above:Performed By: #### [id number] #### [facility] ([facility]) [address] [place] [address]RUOCNIKPMBR MEAN CORPUSCULAR HEMOGLOBIN CONCENTRATION (G/DL) BY EDKSFFQDB36.4 g/dLLow32.0-35.0UnVeterans Health AdministrationComment on above:Performed By: #### [id number] #### [facility] ([facility]) [address] [place] [address]Qywtlwogch (Bld) [Volume fraction]27.1 %Low39.0-55.0UnVeterans Health AdministrationComment on above:Performed By: #### [id number] #### [facility] ([facility]) [address] [place] [address]Jeoecqygox (Bld) [Mass/Vol]8.5 g/dLLow13.0-17.0UnVeterans Health AdministrationComment on above:Performed By: #### [id number] #### [facility] ([facility]) [address] [place] [address]Ivjntozc granulocytes (Bld) [#/Vol]0.04 10*3/uLNormal0.00-0.[address] [facility] HospitalComment on above:Performed By: #### [id number] #### [facility] ([facility]) [address] [place] [address]Vtmegpjv granulocytes/100 WBC (Bld)0.5 %Normal0.0-1.0UnVeterans Health AdministrationComment on above:Performed By: #### [id number] #### [facility] ([facility]) [address] [place] [address]Kguqthvvjaj (Bld) [#/Vol]1.02 10*3/uLLow1.20-4.00UnVeterans Health AdministrationComment on above:Performed By: #### [id number] #### [facility] ([facility]) [address] [facility] [place] [address]Qjktrvowenb/100 WBC (Bld)13.3 %Low20.0-45.0UnVeterans Health AdministrationComment on above:Performed By: #### [id number] #### [facility] ([facility]) [address] [facility] [place], [place] [address]GWE (RBC) [Entitic mass]30.7 mkDmlcil83.0-33.0UnVeterans Health AdministrationComment on above:Performed By: #### [id number] #### [facility] ([facility]) [address] [place], [place] [address]QIB (RBC) [Entitic vol]97.8 wNIwbsmn09.0-98.0UnVeterans Health AdministrationComment on above:Performed By: #### [id number] #### [facility] ([facility]) [address] [place], [place] [address]Nydlrybym (Bld) [#/Vol]0.59 10*3/uLNormal0.10-1.00UnVeterans Health AdministrationComment on above:Performed By: #### [id number] #### [facility] ([facility]) [address] [facility] [place] [address]Dfqnjovfa/100 WBC (Bld)7.7 %Normal5.0-12.0UnVeterans Health AdministrationComment on above:Performed By: #### [id number] #### [facility] ([facility]) [address] [place], [place] [address]Dasvfomkchj (Bld) [#/Vol]5.77 10*3/uLNormal1.60-7.60UnVeterans Health AdministrationComment on above:Performed By: #### [id number] #### [facility] ([facility]) [address] [facility] [place] [address]Aikvtmjvtis/100 WBC (Bld)75.1 %High40.0-72.0UnVeterans Health AdministrationComment on above:Performed By: #### [id number] #### [facility] ([facility]) [address] [place] [address]ZAWF (PER 100 WBCS) BY AUTOMATED COUNT0.0 %Uqqxou3OetpottpdgVeterans Health AdministrationComment on above:Performed By: #### [id number] #### [facility] ([facility]) [address] [place] [address]SMKSDUEUY (10*3/UL) IN BLOOD AUTOMATED [id number] 10*3/uLNormal 150-400UnVeterans Health AdministrationComment on above:Performed By: #### [id number] #### [facility] ([facility]) [address] [place] [address]GSI (Bld) [#/Vol]2.77 10*6/uLLow4.20-5.70UnVeterans Health AdministrationComment on above:Performed By: #### [id number] #### [facility] ([facility]) [address] [place] [address]XNJ (Bld) [#/Vol]7.68 10*3/uLNormal4.00-10.60UnVeterans Health AdministrationComment on above:Performed By: #### [id number] #### [facility] ([facility]) [address] [place] [address]UIKVMDNUHon 74-59-5155Xxojnjvmc [Mass/Vol]2.2 mg/dLNormal1.9-2.[address] [facility] HospitalComment on above:Performed By: #### [id number] #### [facility] ([facility]) [address] [place] [address]N4, FREEon 15-28-4057ZJNGTNNJJ (T4) FREE (NG/DL) IN SER/PLAS0.92 ng/dLNormal0.71-1.85UnVeterans Health AdministrationComment on above: Performed By: #### [id number] #### [facility] ([facility]) [address] [place] [address]FWXpj 09-43-6007DELJNHPBRYG (MIU/L) IN SER/PLAS BY DETECTION LIMIT <= 0.05 MIU/L2.35 mIU/LNormal0.34-5.60UnVeterans Health Administration Comment on above:Performed By: #### [id number] #### [facility] ([facility]) [address] [place] [address]LLXfm 56-30-2739Jwmmpduxhyj distribution width (RBC) [Ratio]16.0 %High11.5-15.0UnVeterans Health AdministrationComment on above:Performed By: #### [id number] #### [facility] ([facility]) [address] [place] [address]KWWJPTCKYZE MEAN CORPUSCULAR HEMOGLOBIN CONCENTRATION (G/DL) BY PBJFDWIUW90.8 g/dLLow32.0-35.0UnVeterans Health AdministrationComment on above:Performed By: #### [id number] #### [facility] ([facility]) [address] [place], [place] [address]Cvacrzkouj (Bld) [Volume fraction]32.2 %Low39.0-55.0UnVeterans Health AdministrationComment on above:Performed By: #### [id number] #### [facility] ([facility]) [address] [place], [place] [address]Xvtflisdwz (Bld) [Mass/Vol]9.6 g/dLLow13.0-17.0UnVeterans Health AdministrationComment on above:Performed By: #### [id number] #### [facility] ([facility]) [address] [place] [address]RCO (RBC) [Entitic mass]30.5 nqQlgavb82.0-33.0UnVeterans Health AdministrationComment on above:Performed By: #### [id number] #### [facility] ([facility]) [address] [place] [place], [place] [address]ICB (RBC) [Entitic vol]102.2 fFTncy80.0-98.0UnVeterans Health AdministrationComment on above:Performed By: #### [id number] #### [facility] ([facility]) [address] [place] [address]IQNBXLHVL (10*3/UL) IN BLOOD AUTOMATED [id number] 10*3/uLNormal 150-400UnVeterans Health AdministrationComment on above:Performed By: #### [id number] #### [facility] ([facility]) [address] [address]RVH (Bld) [#/Vol]3.15 10*6/uLLow4.20-5.70UnVeterans Health AdministrationComment on above:Performed By: #### [id number] #### [facility] ([facility]) [address] [place] [address]APT (Bld) [#/Vol]7.80 10*3/uLNormal4.00-10.60UnVeterans Health AdministrationComment on above:Performed By: #### [id number] #### [facility] ([facility]) [address] [place] [address]FERKTAQUXWBNB METABOLIC PANELon 71-87-6075Prwwgmg [Mass/Vol]3.7 g/dLNormal3.5-5.7UnVeterans Health AdministrationComment on above:Performed By: #### [id number] #### [facility] ([facility]) [address] [place] [address]SXN [Catalytic activity/Vol]112 U/PYltj61-038LlvrudtttrVeterans Health AdministrationComment on above:Performed By: #### [id number] #### [facility] ([facility]) [address] [place] [address]BXT [Catalytic activity/Vol]13 U/LNormal7-52UnVeterans Health AdministrationComment on above:Performed By: #### [id number] #### [facility] ([facility]) [address] [place] [address]Ilwwb gap [Moles/Vol]12 mmol/LNormal7-20UnVeterans Health AdministrationComment on above:Performed By: #### [id number] #### [facility] ([facility]) [address] [place] [address]DKJ [Catalytic activity/Vol]19 U/HKuzcyy94-28MwjdwvpclrVeterans Health AdministrationComment on above:Performed By: #### [id number] #### [facility] ([facility]) [address] [place] [address]Rptvvfrjs [Mass/Vol]0.3 mg/dLNormal0.3-1.0UnVeterans Health AdministrationComment on above:Performed By: #### [id number] #### [facility] ([facility]) [address] [place] [address]Bkezmko [Mass/Vol]9.9 mg/dLNormal8.6-10.3UnVeterans Health AdministrationComment on above:Performed By: #### [id number] #### [facility] ([facility]) [address] [place] [address]Ijbxnopg [Moles/Vol]100 mmol/GNrlsrn90-301FbluxmiaaoVeterans Health AdministrationComment on above:Performed By: #### [id number] #### [facility] ([facility]) [address] [place] [address]UQ3 [Moles/Vol]25 mmol/JZjcpzk00-68KosqiraosiVeterans Health AdministrationComment on above:Performed By: #### [id number] #### [facility] ([facility]) [address] [place] [address]Useayfpqeo [Mass/Vol]0.62 mg/dLLow0.70-1.30UnVeterans Health AdministrationComment on above:Performed By: #### [id number] #### [facility] ([facility]) [address] [place] [address]XTBFVDAYKH FILTRATION RATE ML/MIN/1.73 SQ M.IKISXTLRU12.8 mL/min/1.73m*2Normal>60.0UnVeterans Health AdministrationComment on above: Result Comment: [facility]???s estimated glomerular filtration rate (eGFR) will no [...] group of individuals.Performed By: #### [id number] #### [facility] ([facility]) [address] [place], [place] [address]Fszlniy [Mass/Vol]99 mg/kNUrjipm77-934VbajgmojnfVeterans Health AdministrationComment on above:Performed By: #### [id number] #### [facility] ([facility]) [address] [place], [place] [address]Lxobtbfxt [Moles/Vol]4.6 mmol/LNormal3.5-5.1UnVeterans Health AdministrationComment on above:Performed By: #### [id number] #### [facility] ([facility]) [address] [place], [place] [address]Aemiiro [Mass/Vol]7.4 g/dLNormal6.0-8.3UnVeterans Health AdministrationComment on above:Performed By: #### [id number] #### [facility] ([facility]) [address] [place], [place] [address]Gfrysl [Moles/Vol]132 mmol/SNmx239-748KnnkstsdcaVeterans Health AdministrationComment on above:Performed By: #### [id number] #### [facility] ([facility]) [address] [place], [place] [address]Nnje nitrogen [Mass/Vol]47 mg/dLHigh7-25UnVeterans Health AdministrationComment on above:Performed By: #### [id number] #### [facility] ([facility]) [address] [place], [place] [address]GYKS NITROGEN/CREATININE (MASS RATIO) IN SER/PLAS75.8Normal [facility] HospitalComment on above:Performed By: #### [id number] #### [facility] ([facility]) [address] [place], [place] [address]UAWFGYLATef 19-14-2546Oosdxyxnr [Mass/Vol]1.9 mg/dLNormal1.9-2.[address] [facility] HospitalComment on above:Performed By: #### [id number] #### [facility] ([facility]) [address] [place], [place] [address]EZMQJUAVRZqb 82-92-3533Qqeheqbvx [Mass/Vol]3.1 mg/dLNormal 2.5-5.0UnVeterans Health AdministrationComment on above:Performed By: #### [id number] #### [facility] ([facility]) [address] [place], [place] [address]ZNTkt 75-07-4507Tihetgxownx distribution width (RBC) [Ratio]15.6 %High11.5-15.0UnVeterans Health AdministrationComment on above:Performed By: #### [id number] #### [facility] ([facility]) [address] [place], [place] [address]BXMYBKXUCQE MEAN CORPUSCULAR HEMOGLOBIN CONCENTRATION (G/DL) BY KYCBXKUIY07.8 g/dLLow32.0-35.0UnVeterans Health AdministrationComment on above:Performed By: #### [id number] #### [facility] ([facility]) [address] [place], [place] [address]Xyzebkkkpl (Bld) [Volume fraction]30.2 %Low39.0-55.0UnVeterans Health AdministrationComment on above:Performed By: #### [id number] #### [facility] ([facility]) [address] [place], [place] [address]Kykixlgfzy (Bld) [Mass/Vol]9.3 g/dLLow13.0-17.0UnVeterans Health AdministrationComment on above:Performed By: #### [id number] #### [facility] ([facility]) [address] [place], [place] [address]YVL (RBC) [Entitic mass]30.7 mxWpymin59.0-33.0UnVeterans Health AdministrationComment on above:Performed By: #### [id number] #### [facility] ([facility]) [address] [place] [address]JJG (RBC) [Entitic vol]99.7 cQQcze97.0-98.0UnVeterans Health AdministrationComment on above:Performed By: #### [id number] #### [facility] ([facility]) [address] [place] [address]DJIVONONB (10*3/UL) IN BLOOD AUTOMATED [id number] 10*3/uLNormal 150-400UnVeterans Health AdministrationComment on above:Performed By: #### [id number] #### [facility] ([facility]) [address] [place] [address]IOW (Bld) [#/Vol]3.03 10*6/uLLow4.20-5.70UnVeterans Health AdministrationComment on above:Performed By: #### [id number] #### [facility] ([facility]) [address] [place] [address]AVP (Bld) [#/Vol]6.87 10*3/uLNormal4.00-10.60UnVeterans Health AdministrationComment on above:Performed By: #### [id number] #### [facility] ([facility]) [address] [place], [place] [address]BGNTTYEIEYVOK METABOLIC PANELon 63-02-3171Ulrudvt [Mass/Vol]3.3 g/dLLow3.5-5.7UnVeterans Health AdministrationComment on above:Performed By: #### [id number] #### [facility] ([facility]) [address] [place], [place] [address]KOI [Catalytic activity/Vol]111 U/NEefm68-294CeyaijopcfVeterans Health AdministrationComment on above:Performed By: #### [id number] #### [facility] ([facility]) [address] [place], [place] [address]WEL [Catalytic activity/Vol]15 U/LNormal7-52UnVeterans Health AdministrationComment on above:Performed By: #### [id number] #### [facility] ([facility]) [address] [place], [place] [address]Mazbs gap [Moles/Vol]10 mmol/LNormal7-20UnVeterans Health AdministrationComment on above:Performed By: #### [id number] #### [facility] ([facility]) [address] [place], [place] [address]SWZ [Catalytic activity/Vol]17 U/JYxkams16-58TzrqzosakcVeterans Health AdministrationComment on above:Performed By: #### [id number] #### [facility] ([facility]) [address] [place], [place] [address]Evvbrebfc [Mass/Vol]0.3 mg/dLNormal0.3-1.0UnVeterans Health AdministrationComment on above:Performed By: #### [id number] #### [facility] ([facility]) [address] [place], [place] [address]Iulgffd [Mass/Vol]9.2 mg/dLNormal8.6-10.3UnVeterans Health AdministrationComment on above:Performed By: #### [id number] #### [facility] ([facility]) [address] [place], [place] [address]Qfdndvjc [Moles/Vol]101 mmol/RBxehmz27-827IrioazuhroVeterans Health AdministrationComment on above:Performed By: #### [id number] #### [facility] ([facility]) [address] [place], [place] [address]KX4 [Moles/Vol]28 mmol/NSfxkcp55-12LmhjheajfeVeterans Health AdministrationComment on above:Performed By: #### [id number] #### [facility] ([facility]) [address] [place], [place] [address]Qidgxvdlsq [Mass/Vol]0.70 mg/dLNormal0.70-1.30UnVeterans Health AdministrationComment on above:Performed By: #### [id number] #### [facility] ([facility]) [address] [place], [place] [address]FDEMHHGKHV FILTRATION RATE ML/MIN/1.73 SQ M.GGPDTULJB18.4 mL/min/1.73m*2Normal>60.0UnVeterans Health AdministrationComment on above: Result Comment: [facility]???s estimated glomerular filtration rate (eGFR) will no [...] affect anyone group of individuals.Performed By: #### [id number] #### [facility] ([facility]) [address] [place], [place] [address]Xytoxqv [Mass/Vol]87 mg/bWDpqnex74-835OmjkfoawkqVeterans Health AdministrationComment on above:Performed By: #### [id number] #### [facility] ([facility]) [address] [place], [place] [address]Ftvzbntwf [Moles/Vol]4.8 mmol/LNormal3.5-5.1UnVeterans Health AdministrationComment on above:Performed By: #### [id number] #### [facility] ([facility]) [address] [place], [place] [address]Tyjxuiz [Mass/Vol]6.5 g/dLNormal6.0-8.3UnVeterans Health AdministrationComment on above:Performed By: #### [id number] #### [facility] ([facility]) [address] [place], [place] [address]Qhiubu [Moles/Vol]134 mmol/TZip529-449ToeeyvkmxwVeterans Health AdministrationComment on above:Performed By: #### [id number] #### [facility] ([facility]) [address] [place], [place] [address]Pnzt nitrogen [Mass/Vol]39 mg/dLHigh7-25UnVeterans Health AdministrationComment on above:Performed By: #### [id number] #### [facility] ([facility]) [address] [place] [address]YQCS NITROGEN/CREATININE (MASS RATIO) IN SER/PLAS55.7Normal [facility] HospitalComment on above:Performed By: #### [id number] #### [facility] ([facility]) [address] [place] [address]GAJQGJHVDwe 53-10-2262Aqaunyllz [Mass/Vol]2.0 mg/dLNormal1.9-2.[address] [facility] HospitalComment on above:Performed By: #### [id number] #### [facility] ([facility]) [address] [place] [address]OKWGGRGUMPzn 08-47-2817Skasgxzkp [Mass/Vol]3.2 mg/dLNormal 2.5-5.0UnVeterans Health AdministrationComment on above:Performed By: #### [id number] #### [facility] ([facility]) [address] [place] [address]FFNWJSXFCHQEOcm 72-83-6810HRCNCAE?UnknownNormalUniversCleveland Clinic Avon HospitalComment on above:Performed By: #### [id number] #### [facility] ([facility]) [address] [place] [address]Vxeigxbda [Mass/Vol]119 mg/bQPppxsc13-450JdmawlvvmfVeterans Health AdministrationComment on above:Result Comment: TRIGLYCERIDE REFERENCE RANGE: 20 YEARS AND OLDER CARDIOVASCULAR RISK LESS THAN 150 mg/dL LOW RISK 150 TO 199 mg/dL BORDERLINE RISK 200 mg/dL AND GREATER HIGH RISKPerformed By: #### [id number] #### [facility] ([facility]) [address] [place] [address]UEFPEV BLOOD X 1, STOOLon 49-11-9621DRRDHBAELA GASTROINTESTINAL PRESENCE IN STOOLNegativeNormalNegative, None DetectedUnVeterans Health AdministrationComment on above:Performed By: #### [id number] #### [facility] ([facility]) [address] [place] [address]ZBKvw 38-02-3087Zrechmkwjtk distribution width (RBC) [Ratio]15.7 %High11.5-15.0UnVeterans Health AdministrationComment on above:Performed By: #### [id number] #### [facility] ([facility]) [address] [place] [address]JTFVENSGEVT MEAN CORPUSCULAR HEMOGLOBIN CONCENTRATION (G/DL) BY CBZEHQKDM76.6 g/dLLow32.0-35.0UnVeterans Health AdministrationComment on above:Performed By: #### [id number] #### [facility] ([facility]) [address] [place] [address]Vkhafpxdjs (Bld) [Volume fraction]27.8 %Low39.0-55.0UnVeterans Health AdministrationComment on above:Performed By: #### [id number] #### [facility] ([facility]) [address] [place] [address]Cmhjqvpkls (Bld) [Mass/Vol]8.5 g/dLLow13.0-17.0UnVeterans Health AdministrationComment on above:Performed By: #### [id number] #### [facility] ([facility]) [address] [place] [address]DDD (RBC) [Entitic mass]30.1 lnApdfvf22.0-33.0UnVeterans Health AdministrationComment on above:Performed By: #### [id number] #### [facility] ([facility]) [address] [place] [address]ZPT (RBC) [Entitic vol]98.6 nFPfhl10.0-98.0UnVeterans Health AdministrationComment on above:Performed By: #### [id number] #### [facility] ([facility]) [address] [place] [address]FFAAOPRBO (10*3/UL) IN BLOOD AUTOMATED [id number] 10*3/uLNormal 150-400UnVeterans Health AdministrationComment on above:Performed By: #### [id number] #### [facility] ([facility]) [address] [place] [address]TDV (Bld) [#/Vol]2.82 10*6/uLLow4.20-5.70UnVeterans Health AdministrationComment on above:Performed By: #### [id number] #### [facility] ([facility]) [address] [place] [address]VJT (Bld) [#/Vol]5.28 10*3/uLNormal4.00-10.60UnVeterans Health AdministrationComment on above:Performed By: #### [id number] #### [facility] ([facility]) [address] [place] [address]PKLMNREBUWRSY METABOLIC PANELon 16-83-8239Owmtrda [Mass/Vol]3.1 g/dLLow3.5-5.7UnVeterans Health AdministrationComment on above:Performed By: #### [id number] #### [facility] ([facility]) [address] [place] [address]JQK [Catalytic activity/Vol]106 U/MFcsq60-029HovquvzituVeterans Health AdministrationComment on above:Performed By: #### [id number] #### [facility] ([facility]) [address] [place] [address]SDR [Catalytic activity/Vol]14 U/LNormal7-52UnVeterans Health AdministrationComment on above:Performed By: #### [id number] #### [facility] ([facility]) [address] [place] [address]Knfgq gap [Moles/Vol]6 mmol/LLow7-20UnVeterans Health AdministrationComment on above:Performed By: #### [id number] #### [facility] ([facility]) [address] [place], [place] [address]NRD [Catalytic activity/Vol]18 U/KYgafim89-79YkioyrvktgVeterans Health AdministrationComment on above:Performed By: #### [id number] #### [facility] ([facility]) [address] [place] [address]Xdvgzzves [Mass/Vol]0.3 mg/dLNormal0.3-1.0UnVeterans Health AdministrationComment on above:Performed By: #### [id number] #### [facility] ([facility]) [address] [place] [address]Uyfbhpg [Mass/Vol]9.4 mg/dLNormal8.6-10.3UnVeterans Health AdministrationComment on above:Performed By: #### [id number] #### [facility] ([facility]) [address] [place] [address]Rqpsukjo [Moles/Vol]101 mmol/YPvtgak00-144QbifaasgmqVeterans Health AdministrationComment on above:Performed By: #### [id number] #### [facility] ([facility]) [address] [place] [address]ZZ2 [Moles/Vol]34 mmol/UAyjk05-14DnyrwkexapVeterans Health AdministrationComment on above:Performed By: #### [id number] #### [facility] ([facility]) [address] [place] [address]Uhlhanmqev [Mass/Vol]0.67 mg/dLLow0.70-1.30UnVeterans Health AdministrationComment on above:Performed By: #### [id number] #### [facility] ([facility]) [address] [place] [address]CJZCALKWPH FILTRATION RATE ML/MIN/1.73 SQ M.UFFMRRROP44.6 mL/min/1.73m*2Normal>60.0UnVeterans Health AdministrationComment on above: Result Comment: [facility]???s estimated glomerular filtration rate (eGFR) will no [...] affect anyone group of individuals.Performed By: #### [id number] #### [facility] ([facility]) [address] [place] [address]Efuyhim [Mass/Vol]90 mg/yCRuzwaj51-449HkfgwfjzipVeterans Health AdministrationComment on above:Performed By: #### [id number] #### [facility] ([facility]) [address] [place] [address]Lpkvuzbkt [Moles/Vol]4.8 mmol/LNormal3.5-5.1UnVeterans Health AdministrationComment on above:Performed By: #### [id number] #### [facility] ([facility]) [address] [place] [address]Aoaotjo [Mass/Vol]6.5 g/dLNormal6.0-8.3UnVeterans Health AdministrationComment on above:Performed By: #### [id number] #### [facility] ([facility]) [address] [place] [address]Znuwbq [Moles/Vol]136 mmol/WHbazjf678-185GimhuvwdnlVeterans Health AdministrationComment on above:Performed By: #### [id number] #### [facility] ([facility]) [address] [place] [address]Nria nitrogen [Mass/Vol]42 mg/dLHigh7-25UnVeterans Health AdministrationComment on above:Performed By: #### [id number] #### [facility] ([facility]) [address] [place] [address]SQQS NITROGEN/CREATININE (MASS RATIO) IN SER/PLAS62.7Normal [facility] HospitalComment on above:Performed By: #### [id number] #### [facility] ([facility]) [address] [place] [address]HYZAPIJMYpm 39-92-0125Uivlmcdyl [Mass/Vol]2.0 mg/dLNormal1.9-2.[address] [facility] HospitalComment on above:Performed By: #### [id number] #### [facility] ([facility]) [address] [place] [address]HJZDWCGEXJtr 97-18-0636Cswfhpnzg [Mass/Vol]3.4 mg/dLNormal 2.5-5.0UnVeterans Health AdministrationComment on above:Performed By: #### [id number] #### [facility] ([facility]) [address] [address]DPJQA METABOLIC PANELon 80-04-2720Wdzlg gap [Moles/Vol]8 mmol/L Normal7-20UnVeterans Health AdministrationComment on above:Performed By: #### [id number] #### [facility] ([facility]) [address] [address]Hzfptkf [Mass/Vol]9.4 mg/dLNormal8.6-10.3UnVeterans Health AdministrationComment on above:Performed By: #### [id number] #### [facility] ([facility]) [address] [place] [address]Xlgsrdja [Moles/Vol]98 mmol/JVkcqyv34-083RaanpkbpkpVeterans Health AdministrationComment on above:Performed By: #### [id number] #### [facility] ([facility]) [address] [place] [address]GY4 [Moles/Vol]34 mmol/PScrk97-85DpdaylhkhfVeterans Health AdministrationComment on above:Performed By: #### [id number] #### [facility] ([facility]) [address] [place] [address]Mxlqtpczre [Mass/Vol]0.96 mg/dLNormal0.70-1.30UnVeterans Health AdministrationComment on above:Performed By: #### [id number] #### [facility] ([facility]) [address] [place] [address]GOFAOTENJL FILTRATION RATE ML/MIN/1.73 SQ M.UBSLAQMPW76.4 mL/min/1.73m*2Normal>60.0UnVeterans Health AdministrationComment on above: Result Comment: [facility]???s estimated glomerular filtration rate (eGFR) will no [...] affect anyone group of individuals.Performed By: #### [id number] #### [facility] ([facility]) [address] [place], [place] [address]Aigtnbp [Mass/Vol]97 mg/oFAsliuh07-427GzeudtumabVeterans Health AdministrationComment on above:Performed By: #### [id number] #### [facility] ([facility]) [address] [facility] [place], [place] [address]Uizzuegzq [Moles/Vol]4.6 mmol/LNormal3.5-5.1UnVeterans Health AdministrationComment on above:Performed By: #### [id number] #### [facility] ([facility]) [address] [facility] [place], [place] [address]Zrtmuc [Moles/Vol]135 mmol/ZZse545-960TqzkgrpwnsVeterans Health AdministrationComment on above:Performed By: #### [id number] #### [facility] ([facility]) [address] [facility] [place], [place] [address]Vrqm nitrogen [Mass/Vol]52 mg/dLHigh7-25UnVeterans Health AdministrationComment on above:Performed By: #### [id number] #### [facility] ([facility]) [address] [facility] [place], [place] [address]ANJF NITROGEN/CREATININE (MASS RATIO) IN SER/PLAS54.2Normal [facility] HospitalComment on above:Performed By: #### [id number] #### [facility] ([facility]) [address] [place], [place] [address]LGQXNDWCOdd 74-32-4931Pksebmtwa [Mass/Vol]2.2 mg/dLNormal1.9-2.[address] [facility] HospitalComment on above:Performed By: #### [id number] #### [facility] ([facility]) [address] [place] [address]IQHbb 42-49-2477Dltbsjiehub distribution width (RBC) [Ratio]15.9 %High11.5-15.0UnVeterans Health AdministrationComment on above:Performed By: #### [id number] #### [facility] ([facility]) [address] [place] [address]WVKSOBCXVCB MEAN CORPUSCULAR HEMOGLOBIN CONCENTRATION (G/DL) BY BZDIWMZCD88.2 g/dLLow32.0-35.0UnVeterans Health AdministrationComment on above:Performed By: #### [id number] #### [facility] ([facility]) [address] [place] [address]Qvwtcidgga (Bld) [Volume fraction]28.1 %Low39.0-55.0UnVeterans Health AdministrationComment on above:Performed By: #### [id number] #### [facility] ([facility]) [address] [place] [address]Vieoudkxwc (Bld) [Mass/Vol]8.5 g/dLLow13.0-17.0UnVeterans Health AdministrationComment on above:Performed By: #### [id number] #### [facility] ([facility]) [address] [place] [address]FID (RBC) [Entitic mass]30.5 xiTiepsr72.0-33.0UnVeterans Health AdministrationComment on above:Performed By: #### [id number] #### [facility] ([facility]) [address] [place] [address]DDA (RBC) [Entitic vol]100.7 jSSgap18.0-98.0UnVeterans Health AdministrationComment on above:Performed By: #### [id number] #### [facility] ([facility]) [address] [place] [address]QJTWDWQCQ (10*3/UL) IN BLOOD AUTOMATED [id number] 10*3/uLNormal 150-400UnVeterans Health AdministrationComment on above:Performed By: #### [id number] #### [facility] ([facility]) [address] [place] [address]DXE (Bld) [#/Vol]2.79 10*6/uLLow4.20-5.70UnVeterans Health AdministrationComment on above:Performed By: #### [id number] #### [facility] ([facility]) [address] [place] [address]LBE (Bld) [#/Vol]7.91 10*3/uLNormal4.00-10.60UnVeterans Health AdministrationComment on above:Performed By: #### [id number] #### [facility] ([facility]) [address] [place] [address]TZUNYBKYEQLYQ METABOLIC PANELon 58-35-9087Wkubqrd [Mass/Vol]3.1 g/dLLow3.5-5.7UnVeterans Health AdministrationComment on above:Performed By: #### [id number] #### [facility] ([facility]) [address] [place] [address]SQN [Catalytic activity/Vol]108 U/YBrfc01-016LuhihxoxokVeterans Health AdministrationComment on above:Performed By: #### [id number] #### [facility] ([facility]) [address] [place] [address]BZN [Catalytic activity/Vol]15 U/LNormal7-52UnVeterans Health AdministrationComment on above:Performed By: #### [id number] #### [facility] ([facility]) [address] [place], [place] [address]Wmlee gap [Moles/Vol]7 mmol/LNormal7-20UnVeterans Health AdministrationComment on above:Performed By: #### [id number] #### [facility] ([facility]) [address] [place] [address]YLB [Catalytic activity/Vol]21 U/VPhhwcj99-95YthxthguphVeterans Health AdministrationComment on above:Performed By: #### [id number] #### [facility] ([facility]) [address] [place] [address]Bbkozzjnc [Mass/Vol]0.2 mg/dLLow0.3-1.0UnVeterans Health AdministrationComment on above:Performed By: #### [id number] #### [facility] ([facility]) [address] [place] [address]Fnytkhx [Mass/Vol]9.5 mg/dLNormal8.6-10.3UnVeterans Health AdministrationComment on above:Performed By: #### [id number] #### [facility] ([facility]) [address] [place] [address]Iukwubni [Moles/Vol]101 mmol/CUhpdhr47-859UxghopxnojVeterans Health AdministrationComment on above:Performed By: #### [id number] #### [facility] ([facility]) [address] [place] [address]FT4 [Moles/Vol]34 mmol/NJfbi67-13NezmflrhyyVeterans Health AdministrationComment on above:Performed By: #### [id number] #### [facility] ([facility]) [address] [place] [address]Tzdhsfkvsm [Mass/Vol]0.99 mg/dLNormal0.70-1.30UnVeterans Health AdministrationComment on above:Performed By: #### [id number] #### [facility] ([facility]) [address] [place] [address]HZKCJRWBQR FILTRATION RATE ML/MIN/1.73 SQ M.WSCLFKJYC46.6 mL/min/1.73m*2Normal>60.0UnVeterans Health AdministrationComment on above: Result Comment: [facility]???s estimated glomerular filtration rate (eGFR) will no [...] group of individuals.Performed By: #### [id number] #### [facility] ([facility]) [address] [place], [place] [address]Qeuqlcl [Mass/Vol]105 mg/sJRnvw40-605DxaboomrxbVeterans Health AdministrationComment on above:Performed By: #### [id number] #### [facility] ([facility]) [address] [place], [place] [address]Recannpjd [Moles/Vol]4.6 mmol/LNormal3.5-5.1UnVeterans Health AdministrationComment on above:Performed By: #### [id number] #### [facility] ([facility]) [address] [place], [place] [address]Wimygaa [Mass/Vol]6.4 g/dLNormal6.0-8.3UnVeterans Health AdministrationComment on above:Performed By: #### [id number] #### [facility] ([facility]) [address] [place], [place] [address]Pphnjo [Moles/Vol]137 mmol/QIghaaj717-924HdgvtgxxwjVeterans Health AdministrationComment on above:Performed By: #### [id number] #### [facility] ([facility]) [address] [place], [place] [address]Qulc nitrogen [Mass/Vol]45 mg/dLHigh7-25UnVeterans Health AdministrationComment on above:Performed By: #### [id number] #### [facility] ([facility]) [address] [place], [place] [address]BEDM NITROGEN/CREATININE (MASS RATIO) IN SER/PLAS45.5Normal [facility] HospitalComment on above:Performed By: #### [id number] #### [facility] ([facility]) [address] [place], [place] [address]XGAAIHMCAgq 15-66-1852Pknuqmkfb [Mass/Vol]2.1 mg/dLNormal1.9-2.[address] [facility] HospitalComment on above:Performed By: #### [id number] #### [facility] ([facility]) [address] [place], [place] [address]YKNPPSFTGNjp 33-73-2550Smlvpofpt [Mass/Vol]3.2 mg/dLNormal 2.5-5.0UnVeterans Health AdministrationComment on above:Performed By: #### [id number] #### [facility] ([facility]) [address] [place], [place] [address]MDILJ METABOLIC PANELon 82-79-9388Vtykg gap [Moles/Vol]9 mmol/L Normal7-20UnVeterans Health AdministrationComment on above:Performed By: #### [id number] #### [facility] ([facility]) [address] [place], [place] [address]Nsmrbgf [Mass/Vol]9.2 mg/dLNormal8.6-10.3UnVeterans Health AdministrationComment on above:Performed By: #### [id number] #### [facility] ([facility]) [address] [place], [place] [address]Wtsbcepc [Moles/Vol]101 mmol/JTqtdbm74-631HfmldjkdlmVeterans Health AdministrationComment on above:Performed By: #### [id number] #### [facility] ([facility]) [address] [place], [place] [address]ZY3 [Moles/Vol]32 mmol/WWavr16-30JnskkmqzrnVeterans Health AdministrationComment on above:Performed By: #### [id number] #### [facility] ([facility]) [address] [place], [place] [address]Kpvfkpmldu [Mass/Vol]0.72 mg/dLNormal0.70-1.30UnVeterans Health AdministrationComment on above:Performed By: #### [id number] #### [facility] ([facility] [address] [place], [place] [address]WQJCNLAMWM FILTRATION RATE ML/MIN/1.73 SQ M.XHRCIZKAB23.7 mL/min/1.73m*2Normal>60.0UnVeterans Health AdministrationComment on above: Result Comment: [facility]???s estimated glomerular filtration rate (eGFR) will no [...] affect anyone group of individuals.Performed By: #### [id number] #### [facility] ([facility]) [address] [place], [place] [address]Ridjiun [Mass/Vol]120 mg/sSUhsc19-181NgnyibtodkVeterans Health AdministrationComment on above:Performed By: #### [id number] #### [facility] ([facility]) [address] [place], [place] [address]Bhvzlqtqe [Moles/Vol]4.5 mmol/LNormal3.5-5.1UnVeterans Health AdministrationComment on above:Performed By: #### [id number] #### [facility] ([facility]) [address] [place], [place] [address]Quoaoi [Moles/Vol]137 mmol/PZdfhhc786-652MywgpzjhlaVeterans Health AdministrationComment on above:Performed By: #### [id number] #### [facility] ([facility]) [address] [place], [place] [address]Bngh nitrogen [Mass/Vol]39 mg/dLHigh7-25UnVeterans Health AdministrationComment on above:Performed By: #### [id number] #### [facility] ([facility]) [address] [place], [place] [address]XYVL NITROGEN/CREATININE (MASS RATIO) IN SER/PLAS54.2Normal [facility] HospitalComment on above:Performed By: #### [id number] #### [facility] ([facility]) [address] [facility] [place] [address]RZU WITH AUTO DIFFERENTIALon 46-04-4564Kdhzztafr (Bld) [#/Vol] 0.02 10*3/uLNormal0.00-0.20UnVeterans Health AdministrationComment on above: Performed By: #### [id number] #### [facility] ([facility]) [address] [place], [place] [address]Ttlkjmaxa/100 WBC (Bld)0.3 %Normal0.0-1.0UnVeterans Health AdministrationComment on above:Performed By: #### [id number] #### [facility] ([facility]) [address] [place], [place] [address]Ckhbbkjfeye (Bld) [#/Vol]0.80 10*3/uLHigh0.00-0.50UnVeterans Health AdministrationComment on above:Performed By: #### [id number] #### [facility] ([facility]) [address] [place], [place] [address]Fjneotargad/100 WBC (Bld)12.1 %High0.0-6.0UnVeterans Health AdministrationComment on above:Performed By: #### [id number] #### [facility] ([facility]) [address] [place], [place] [address]Qdjehdzcelm distribution width (RBC) [Ratio]15.8 %High11.5-15.[address] [facility] HospitalComment on above:Performed By: #### [id number] #### [facility] ([facility]) [address] [place], [place] [address]MWQNETJFOCI MEAN CORPUSCULAR HEMOGLOBIN CONCENTRATION (G/DL) BY KBCRMBQJG97.1 g/dLLow32.0-35.0UnVeterans Health AdministrationComment on above:Performed By: #### [id number] #### [facility] ([facility]) [address] [place], [place] [address]Cjqrqblrzp (Bld) [Volume fraction]27.3 %Low39.0-55.0UnVeterans Health AdministrationComment on above:Performed By: #### [id number] #### [facility] ([facility]) [address] [place], [place] [address]Xaekrhspwt (Bld) [Mass/Vol]8.5 g/dLLow13.0-17.0UnVeterans Health AdministrationComment on above:Performed By: #### [id number] #### [facility] ([facility]) [address] [place], [place] [address]Jjgscmtw granulocytes (Bld) [#/Vol]0.02 10*3/uLNormal0.00-0.[address] [facility] HospitalComment on above:Performed By: #### [id number] #### [facility] ([facility]) [address] [place], [place] [address]Cwbainld granulocytes/100 WBC (Bld)0.3 %Normal0.0-1.0UnVeterans Health AdministrationComment on above:Performed By: #### [id number] #### [facility] ([facility]) [address] [place], [place] [address]Mswmyjwqfcc (Bld) [#/Vol]0.89 10*3/uLLow1.20-4.00UnVeterans Health AdministrationComment on above:Performed By: #### [id number] #### [facility] ([facility]) [address] [place] [address]Ijtvesqfzdq/100 WBC (Bld)13.4 %Low20.0-45.0UnVeterans Health AdministrationComment on above:Performed By: #### [id number] #### [facility] ([facility]) [address] [place], [place] [address]JVP (RBC) [Entitic mass]30.5 svAorkxq23.0-33.0UnVeterans Health AdministrationComment on above:Performed By: #### [id number] #### [facility] ([facility]) [address] [place], [place] [address]XKR (RBC) [Entitic vol]97.8 sKVpzuce60.0-98.0UnVeterans Health AdministrationComment on above:Performed By: #### [id number] #### [facility] ([facility]) [address] [place] [address]Kbahbfsrb (Bld) [#/Vol]0.53 10*3/uLNormal0.10-1.00UnVeterans Health AdministrationComment on above:Performed By: #### [id number] #### [facility] ([facility]) [address] [place] [address]Kpoghjogv/100 WBC (Bld)8.0 %Normal5.0-12.0UnVeterans Health AdministrationComment on above:Performed By: #### [id number] #### [facility] ([facility]) [address] [place] [address]Madwfvfbkpx (Bld) [#/Vol]4.37 10*3/uLNormal1.60-7.60UnVeterans Health AdministrationComment on above:Performed By: #### [id number] #### [facility] ([facility]) [address] [place] [address]Amgkvlhmbjd/100 WBC (Bld)65.9 %Ahncvr63.0-72.0UnVeterans Health AdministrationComment on above:Performed By: #### [id number] #### [facility] ([facility]) [address] [place] [address]TJLD (PER 100 WBCS) BY AUTOMATED COUNT0.0 %Daghfa3BlvtlxvnhjVeterans Health AdministrationComment on above:Performed By: #### [id number] #### [facility] ([facility]) [address] [place] [address]GWDCCIZWS (10*3/UL) IN BLOOD AUTOMATED [id number] 10*3/uLNormal 150-400UnVeterans Health AdministrationComment on above:Performed By: #### [id number] #### [facility] ([facility]) [address] [place] [address]JMD (Bld) [#/Vol]2.79 10*6/uLLow4.20-5.70UnVeterans Health AdministrationComment on above:Performed By: #### [id number] #### [facility] ([facility]) [address] [place] [address]AIP (Bld) [#/Vol]6.63 10*3/uLNormal4.00-10.60UnVeterans Health AdministrationComment on above:Performed By: #### [id number] #### [facility] ([facility]) [address] [place] [address]LCBIUZCZRyw 06-55-6219Ptrfxrnqe [Mass/Vol]2.0 mg/dLNormal1.9-2.[address] [facility] HospitalComment on above:Performed By: #### [id number] #### [facility] ([facility]) [address] [place] [address]ZCHjm 62-49-9820Xtmefdlysog distribution width (RBC) [Ratio]15.9 %High11.5-15.0UnVeterans Health AdministrationComment on above:Performed By: #### [id number] #### [facility] ([facility]) [address] [place] [address]JMYJTVSFLIJ MEAN CORPUSCULAR HEMOGLOBIN CONCENTRATION (G/DL) BY NBFYJBOBO09.0 g/dLLow32.0-35.0UnVeterans Health AdministrationComment on above:Performed By: #### [id number] #### [facility] ([facility]) [address] [place] [address]Eomwlvgbjs (Bld) [Volume fraction]26.8 %Low39.0-55.0UnVeterans Health AdministrationComment on above:Performed By: #### [id number] #### [facility] ([facility]) [address] [place] [address]Uzqhjxuirt (Bld) [Mass/Vol]8.3 g/dLLow13.0-17.0UnVeterans Health AdministrationComment on above:Performed By: #### [id number] #### [facility] ([facility]) [address] [place], [place] [address]DCZ (RBC) [Entitic mass]31.1 skNmpteb17.0-33.0UnVeterans Health AdministrationComment on above:Performed By: #### [id number] #### [facility] ([facility]) [address] [place] [address]OHT (RBC) [Entitic vol]100.4 sVNday13.0-98.0UnVeterans Health AdministrationComment on above:Performed By: #### [id number] #### [facility] ([facility]) [address] [place], [place] [address]ZSFIZTTZM (10*3/UL) IN BLOOD AUTOMATED [id number] 10*3/uLNormal 150-400UnVeterans Health AdministrationComment on above:Performed By: #### [id number] #### [facility] ([facility]) [address] [place], [place] [address]ZVM (Bld) [#/Vol]2.67 10*6/uLLow4.20-5.70UnVeterans Health AdministrationComment on above:Performed By: #### [id number] #### [facility] ([facility]) [address] [facility] [place], [place] [address]JVT (Bld) [#/Vol]7.90 10*3/uLNormal4.00-10.60UnVeterans Health AdministrationComment on above:Performed By: #### [id number] #### [facility] ([facility]) [address], [place] [address]TBUSUVFZAMBKN METABOLIC PANELon 02-74-7363Qibntre [Mass/Vol]2.8 g/dLLow3.5-5.7UnVeterans Health AdministrationComment on above:Performed By: #### [id number] #### [facility] ([facility]) [address] [facility] [place], [place] [address]DLK [Catalytic activity/Vol]107 U/DGgff31-216EopergwpggVeterans Health AdministrationComment on above:Performed By: #### [id number] #### [facility] ([facility]) [address] [place], [place] [address]XOZ [Catalytic activity/Vol]12 U/LNormal7-52UnVeterans Health AdministrationComment on above:Performed By: #### [id number] #### [facility] ([facility]) [address] [place], [place] [address]Alzdg gap [Moles/Vol]6 mmol/LLow7-20UnVeterans Health AdministrationComment on above:Performed By: #### [id number] #### [facility] ([facility]) [address] [place], [place] [address]UWP [Catalytic activity/Vol]18 U/IMpnkbv55-67HvtssquqagVeterans Health AdministrationComment on above:Performed By: #### [id number] #### [facility] ([facility]) [address] [place], [place] [address]Msuuihjqt [Mass/Vol]0.3 mg/dLNormal0.3-1.0UnVeterans Health AdministrationComment on above:Performed By: #### [id number] #### [facility] ([facility]) [address] [place], [place] [address]Pfuhnfw [Mass/Vol]9.0 mg/dLNormal8.6-10.3UnVeterans Health AdministrationComment on above:Performed By: #### [id number] #### [facility] ([facility]) [address] [place], [place] [address]Xjlqigza [Moles/Vol]100 mmol/EGcihtb17-084ZbvuzdfnukVeterans Health AdministrationComment on above:Performed By: #### [id number] #### [facility] ([facility]) [address] [place], [place] [address]TN1 [Moles/Vol]33 mmol/NCauq48-48TthjbeigjbVeterans Health AdministrationComment on above:Performed By: #### [id number] #### [facility] ([facility]) [address] [place], [place] [address]Iswcmqazqc [Mass/Vol]0.99 mg/dLNormal0.70-1.30UnVeterans Health AdministrationComment on above:Performed By: #### [id number] #### [facility] ([facility]) [address] [place], [place] [address]EITXBKSGAD FILTRATION RATE ML/MIN/1.73 SQ M.MGTEHRUPC13.6 mL/min/1.73m*2Normal>60.0UnVeterans Health AdministrationComment on above: Result Comment: [facility]???s estimated glomerular filtration rate (eGFR) will no [...] affect anyone group of individuals.Performed By: #### [id number] #### [facility] ([facility]) [address], [place] [address]Qsgkbdg [Mass/Vol]96 mg/oQPfpprr02-535PylpkahovlVeterans Health AdministrationComment on above:Performed By: #### [id number] #### [facility] ([facility]) [address], [place] [address]Nwvyvlcda [Moles/Vol]4.4 mmol/LNormal3.5-5.1UnVeterans Health AdministrationComment on above:Performed By: #### [id number] #### [facility] ([facility]) [address] [place], [place] [address]Svlmehh [Mass/Vol]5.8 g/dLLow6.0-8.3UnVeterans Health AdministrationComment on above:Performed By: #### [id number] #### [facility] ([facility]) [address] [place], [place] [address]Ndeiau [Moles/Vol]135 mmol/RMmb551-374XnugwyhbrxVeterans Health AdministrationComment on above:Performed By: #### [id number] #### [facility] ([facility] [address] [place] [address]Iowv nitrogen [Mass/Vol]39 mg/dLHigh7-25UnVeterans Health AdministrationComment on above:Performed By: #### [id number] #### [facility] ([facility]) [address] [place] [address]RJIU NITROGEN/CREATININE (MASS RATIO) IN SER/PLAS39.4Normal [facility] HospitalComment on above:Performed By: #### [id number] #### [facility] ([facility]) [address] [place] [address]MRKUQDJNVyy 40-99-4963Gvirplmes [Mass/Vol]2.0 mg/dLNormal1.9-2.[address] [facility] HospitalComment on above:Performed By: #### [id number] #### [facility] ([facility]) [address] [place] [address]TKEACRLJPCti 02-80-0279Zpzeqmxvc [Mass/Vol]3.2 mg/dLNormal 2.5-5.0UnVeterans Health AdministrationComment on above:Performed By: #### [id number] #### [facility] ([facility]) [address] [place] [address]CRPTXFTEMGJPYrc 62-17-0134RQNXKGR?UNKNOWNNormalUniversity of University HospitalComment on above:Performed By: #### [id number] #### [facility] ([facility]) [address] [place] [address]Ppppptsnm [Mass/Vol]126 mg/aCFjoknw13-733EnekpcriktVeterans Health AdministrationComment on above:Result Comment: TRIGLYCERIDE REFERENCE RANGE: 20 YEARS AND OLDER CARDIOVASCULAR RISK LESS THAN 150 mg/dL LOW RISK 150 TO 199 mg/dL BORDERLINE RISK 200 mg/dL AND GREATER HIGH RISKPerformed By: #### [id number] #### [facility] ([facility]) [address] [place] [address]UIBpx 44-36-1550Xkbzmrfkpzs distribution width (RBC) [Ratio]15.6 %High11.5-15.0UnVeterans Health AdministrationComment on above:Performed By: #### [id number] #### [facility] ([facility]) [address] [place] [address]MTMFOIRAOOV MEAN CORPUSCULAR HEMOGLOBIN CONCENTRATION (G/DL) BY RKTRLVIQS61.3 g/dLLow32.0-35.0UnVeterans Health AdministrationComment on above:Performed By: #### [id number] #### [facility] ([facility]) [address] [place] [address]Uxdbjufbfd (Bld) [Volume fraction]28.8 %Low39.0-55.0UnVeterans Health AdministrationComment on above:Performed By: #### [id number] #### [facility] ([facility]) [address] [place] [address]Yqbifyqiyy (Bld) [Mass/Vol]9.0 g/dLLow13.0-17.0UnVeterans Health AdministrationComment on above:Performed By: #### [id number] #### [facility] ([facility]) [address] [place] [address]JBG (RBC) [Entitic mass]30.4 ghYjnzoo64.0-33.0UnVeterans Health AdministrationComment on above:Performed By: #### [id number] #### [facility] ([facility]) [address] [place] [address]XVX (RBC) [Entitic vol]97.3 vDWofgck00.0-98.0UnVeterans Health AdministrationComment on above:Performed By: #### [id number] #### [facility] ([facility]) [address] [place] [address]HLEENZPJQ (10*3/UL) IN BLOOD AUTOMATED [id number] 10*3/uLNormal 150-400UnVeterans Health AdministrationComment on above:Performed By: #### [id number] #### [facility] ([facility]) [address] [place] [address]KKO (Bld) [#/Vol]2.96 10*6/uLLow4.20-5.70UnVeterans Health AdministrationComment on above:Performed By: #### [id number] #### [facility] ([facility]) [address] [place] [address]KTM (Bld) [#/Vol]8.30 10*3/uLNormal4.00-10.60UnVeterans Health AdministrationComment on above:Performed By: #### [id number] #### [facility] ([facility]) [address] [place] [address]KSGNZOMIDPMCS METABOLIC PANELon 26-10-6077Owemnkm [Mass/Vol]2.9 g/dLLow3.5-5.7UnVeterans Health AdministrationComment on above:Performed By: #### [id number] #### [facility] ([facility]) [address] [place] [address]BMF [Catalytic activity/Vol]128 U/LZpza29-089GjngcticqcVeterans Health AdministrationComment on above:Performed By: #### [id number] #### [facility] ([facility]) [address] [place] [address]WUQ [Catalytic activity/Vol]14 U/LNormal7-52UnVeterans Health AdministrationComment on above:Performed By: #### [id number] #### [facility] ([facility]) [address] [place] [address]Kegcx gap [Moles/Vol]6 mmol/LLow7-20UnVeterans Health AdministrationComment on above:Performed By: #### [id number] #### [facility] ([facility]) [address] [place] [address]ZOQ [Catalytic activity/Vol]13 U/HMgnqmv33-37FpoqsbglxjVeterans Health AdministrationComment on above:Performed By: #### [id number] #### [facility] ([facility]) [address] [place] [address]Cjyzbhuxy [Mass/Vol]0.3 mg/dLNormal0.3-1.0UnVeterans Health AdministrationComment on above:Performed By: #### [id number] #### [facility] ([facility]) [address] [address]Dtntsrh [Mass/Vol]8.8 mg/dLNormal8.6-10.3UnVeterans Health AdministrationComment on above:Performed By: #### [id number] #### [facility] ([facility]) [address] [place] [address]Wifowozj [Moles/Vol]101 mmol/GLhsyvg50-021RxrrvgnpmtVeterans Health AdministrationComment on above:Performed By: #### [id number] #### [facility] ([facility]) [address] [address]FN4 [Moles/Vol]34 mmol/UIxyr33-25EqojmsestrVeterans Health AdministrationComment on above:Performed By: #### [id number] #### [facility] ([facility]) [address] [place] [address]Cnhjnzptph [Mass/Vol]0.51 mg/dLLow0.70-1.30UnVeterans Health AdministrationComment on above:Performed By: #### [id number] #### [facility] ([facility]) [address] [address]KKVRBRDWRW FILTRATION RATE ML/MIN/1.73 SQ M.XWMQCOFTD183.6 mL/min/1.73m*2Normal>60.0UnVeterans Health AdministrationComment on above: Result Comment: [facility]???s estimated glomerular filtration rate (eGFR) will no [...] group of individuals.Performed By: #### [id number] #### [facility] ([facility]) [address] [place] [address]Bwccrkm [Mass/Vol]98 mg/jBCsdfwq55-893JdqeruijgxVeterans Health AdministrationComment on above:Performed By: #### [id number] #### [facility] ([facility]) [address] [place] [address]Isrbwzwre [Moles/Vol]3.4 mmol/LLow3.5-5.1UnVeterans Health AdministrationComment on above:Performed By: #### [id number] #### [facility] ([facility]) [address] [place], [place] [address]Gvwajml [Mass/Vol]6.0 g/dLNormal6.0-8.3UnVeterans Health AdministrationComment on above:Performed By: #### [id number] #### [facility] ([facility]) [address] [place] [address]Ttmaew [Moles/Vol]138 mmol/DZagdey838-831NjpspjdgvwVeterans Health AdministrationComment on above:Performed By: #### [id number] #### [facility] ([facility]) [address] [place], [place] [address]Suql nitrogen [Mass/Vol]20 mg/dLNormal7-25UnVeterans Health AdministrationComment on above:Performed By: #### [id number] #### [facility] ([facility]) [address] [place], [place] [address]XPFR NITROGEN/CREATININE (MASS RATIO) IN SER/PLAS39.2Normal [facility] HospitalComment on above:Performed By: #### [id number] #### [facility] ([facility]) [address] [place], [place] [address]LZUKVQWLTdh 80-27-0298Hwbrklzeu [Mass/Vol]1.9 mg/dLNormal1.9-2.[address] [facility] HospitalComment on above:Performed By: #### [id number] #### [facility] ([facility]) [address] [place], [place] [address]LGUYBYBQEWfr 90-53-0758Cfojtmvrt [Mass/Vol]3.1 mg/dLNormal 2.5-5.0UnVeterans Health AdministrationComment on above:Performed By: #### [id number] #### [facility] ([facility]) [address] [place], [place] [address]GYINR METABOLIC PANELon 51-84-7211Lkfcy gap [Moles/Vol]8 mmol/L Normal7-20UnVeterans Health AdministrationComment on above:Performed By: #### [id number] #### [facility] ([facility]) [address] [place], [place] [address]Jjorrwi [Mass/Vol]8.9 mg/dLNormal8.6-10.3UnVeterans Health AdministrationComment on above:Performed By: #### [id number] #### [facility] ([facility]) [address] [place], [place] [address]Zetuqqyi [Moles/Vol]102 mmol/UMggehm15-574XdbrvqiaruVeterans Health AdministrationComment on above:Performed By: #### [id number] #### [facility] ([facility]) [address] [place], [place] [address]EQ7 [Moles/Vol]32 mmol/LNepa95-17YwobjxixjpVeterans Health AdministrationComment on above:Performed By: #### [id number] #### [facility] ([facility]) [address] [place], [place] [address]Kddkfyrsfe [Mass/Vol]0.47 mg/dLLow0.70-1.30UnVeterans Health AdministrationComment on above:Performed By: #### [id number] #### [facility] ([facility]) [address] [place], [place] [address]AFYRYPUQZO FILTRATION RATE ML/MIN/1.73 SQ M.IUXNARZHO815.1 mL/min/1.73m*2Normal>60.0UnVeterans Health AdministrationComment on above: Result Comment: [facility]???s estimated glomerular filtration rate (eGFR) will no [...] group of individuals.Performed By: #### [id number] #### [facility] ([facility]) [address] [place], [place] [address]Vaiuvbe [Mass/Vol]88 mg/jNCupbur83-021DeaaoxmvhrVeterans Health AdministrationComment on above:Performed By: #### [id number] #### [facility] ([facility]) [address] [place], [place] [address]Kzslhsfst [Moles/Vol]3.8 mmol/LNormal3.5-5.1UnVeterans Health AdministrationComment on above:Performed By: #### [id number] #### [facility] ([facility]) [address] [place], [place] [address]Bmhqdj [Moles/Vol]138 mmol/GXwvxmg429-088DdgxrxrchzVeterans Health AdministrationComment on above:Performed By: #### [id number] #### [facility] ([facility]) [address] [place], [place] [address]Elcg nitrogen [Mass/Vol]17 mg/dLNormal7-25UnVeterans Health AdministrationComment on above:Performed By: #### [id number] #### [facility] ([facility]) [address] [place], [place] [address]NZJK NITROGEN/CREATININE (MASS RATIO) IN SER/PLAS36.2Normal [facility] HospitalComment on above:Performed By: #### [id number] #### [facility] ([facility]) [address] [place], [place] [address]SNT WITH AUTO DIFFERENTIALon 15-56-4727Qgwzddckpxj distribution width (RBC) [Ratio]15.7 %High11.5-15.0UnVeterans Health AdministrationComment on above:Performed By: #### [id number] #### [facility] ([facility]) [address] [place], [place] [address]ANLOFHTBAYV MEAN CORPUSCULAR HEMOGLOBIN CONCENTRATION (G/DL) BY SJLNJDBHI13.6 g/dLLow32.0-35.0UnVeterans Health AdministrationComment on above:Performed By: #### [id number] #### [facility] ([facility]) [address] [place], [place] [address]Ezjqizazbx (Bld) [Volume fraction]30.7 %Low39.0-55.0UnVeterans Health AdministrationComment on above:Performed By: #### [id number] #### [facility] ([facility]) [address] [place], [place] [address]Drnvqhnajo (Bld) [Mass/Vol]9.4 g/dLLow13.0-17.0UnVeterans Health AdministrationComment on above:Performed By: #### [id number] #### [facility] ([facility]) [address] [facility] [place], [place] [address]JWFHAFAX PLATELET FRACTION %4.1 %Normal0.8-6.3UnVeterans Health AdministrationComment on above:Performed By: #### [id number] #### [facility] ([facility]) [address] [place], [place] [address]HQY (RBC) [Entitic mass]30.6 gmNmvtgx41.0-33.0UnVeterans Health AdministrationComment on above:Performed By: #### [id number] #### [facility] ([facility]) [address] [place], [place] [address]ARO (RBC) [Entitic vol]100.0 tZHfnp10.0-98.0UnVeterans Health AdministrationComment on above:Performed By: #### [id number] #### [facility] ([facility]) [address] [place], [place] [address]DAEX (PER 100 WBCS) BY AUTOMATED COUNT0.0 %Fvefcx6BhkzjsqjynVeterans Health AdministrationComment on above:Performed By: #### [id number] #### [facility] ([facility]) [address] [facility] [place] [address]GZTLFDUJC (10*3/UL) IN BLOOD AUTOMATED CCDII288 10*3/uLNormal 150-400UnVeterans Health AdministrationComment on above:Performed By: #### [id number] #### [facility] ([facility]) [address] [place] [place] [address]GXH (Bld) [#/Vol]3.07 10*6/uLLow4.20-5.70UnVeterans Health AdministrationComment on above:Performed By: #### [id number] #### [facility] ([facility]) [address] [facility] [place] [address]GYO (Bld) [#/Vol]7.78 10*3/uLNormal4.00-10.60UnVeterans Health AdministrationComment on above:Performed By: #### [id number] #### [facility] [facility] [address] [facility] [place] [address]RANQBYQVMhm 82-16-9710Mukggdour [Mass/Vol]2.2 mg/dLNormal1.9-2.[address] [facility] HospitalComment on above:Performed By: #### [id number] #### [facility] ([facility]) [address] [place] [address]ESEBRG DIFFERENTIALon 46-53-4143DJTINTOPG (10*3/UL) IN BLOOD BY CALCULATION0.03 10*3/uLNormal0.00-0.20UnVeterans Health AdministrationComment on above:Performed By: #### [id number] #### [facility] ([facility]) [address] [facility] [place], [place] [address]RMIUWOTRW/100 LEUKOCYTES IN BLOOD BY AUTOMATED COUNT0.4 %Normal 0.0-1.0UnVeterans Health AdministrationComment on above:Performed By: #### [id number] #### [facility] ([facility]) [address] [facility] [place], [place] [address]DFVPTIVVXPM (10*3/UL) IN BLOOD BY CALCULATION1.29 10*3/uLHigh 0.00-0.50UnVeterans Health AdministrationComment on above:Performed By: #### [id number] #### [facility] ([facility]) [address] [place] [address]YHZXZXEEMDB/100 LEUKOCYTES IN BLOOD BY AUTOMATED COUNT16.6 %High 0.0-6.0UnVeterans Health AdministrationComment on above:Performed By: #### [id number] #### [facility] ([facility]) [address] [facility] [place], [place] [address]LQSKPYOE GRANULOCYTES (10*3/UL) IN BLOOD BY CALCULATION0.04 10*3/uLNormal0.00-0.20UnVeterans Health AdministrationComment on above: Performed By: #### [id number] #### [facility] ([facility]) [address] [facility] [place], [place] [address]IQDOXWFW GRANULOCYTES/100 LEUKOCYTES IN BLOOD BY AUTOMATED COUNT 0.5 %Normal0.0-1.0UnVeterans Health AdministrationComment on above:Performed By: #### [id number] #### [facility] ([facility]) [address] [facility] [place] [address]FGXPCTIAMQT (10*3/UL) IN BLOOD BY CALCULATION1.13 10*3/uLLow 1.20-4.00UnVeterans Health AdministrationComment on above:Performed By: #### [id number] #### [facility] ([facility]) [address] [facility] [place] [address]GINRZSHJMZB/100 LEUKOCYTES IN BLOOD BY AUTOMATED COUNT14.5 %Low 20.0-45.0UnVeterans Health AdministrationComment on above:Performed By: #### [id number] #### [facility] ([facility]) [address] [facility] [place], [place] [address]FTVQBDOFQ (10*3/UL) IN BLOOD BY CALCUATION0.46 10*3/uLNormal 0.10-1.00UnVeterans Health AdministrationComment on above:Performed By: #### [id number] #### [facility] ([facility]) [address] [place] [address]ZHZGGWAZW/100 LEUKOCYTES IN BLOOD BY AUTOMATED COUNT5.9 %Normal 5.0-12.0UnVeterans Health AdministrationComment on above:Performed By: #### [id number] #### [facility] ([facility]) [address] [place] [address]RBYYNMEZUVB (10*3/UL) IN BLOOD BY CALCULATION4.8 10*3/uLNormal 1.6-7.6UnVeterans Health AdministrationComment on above:Performed By: #### [id number] #### [facility] ([facility]) [address] [place] [address]OGHRYIGWLSM/100 LEUKOCYTES IN BLOOD BY AUTOMATED COUNT62.1 % Pzhlfx54.0-72.0UnVeterans Health AdministrationComment on above:Performed By: #### [id number] #### [facility] ([facility]) [address] [place] [address]ZNOgf 22-77-7807Jbtnfdgtdki distribution width (RBC) [Ratio]15.6 %High11.5-15.0UnVeterans Health AdministrationComment on above:Performed By: #### [id number] #### [facility] ([facility]) [address] [place] [address]SSRFSFFENIZ MEAN CORPUSCULAR HEMOGLOBIN CONCENTRATION (G/DL) BY KHTFOQRVD78.3 g/dLLow32.0-35.0UnVeterans Health AdministrationComment on above:Performed By: #### [id number] #### [facility] ([facility]) [address] [place] [address]Lchgmsnsgh (Bld) [Volume fraction]26.8 %Low39.0-55.0UnVeterans Health AdministrationComment on above:Performed By: #### [id number] #### [facility] ([facility]) [address] [place] [address]Rnjdxfdzhm (Bld) [Mass/Vol]8.4 g/dLLow13.0-17.0UnVeterans Health AdministrationComment on above:Performed By: #### [id number] #### [facility] ([facility]) [address] [place] [address]YNW (RBC) [Entitic mass]30.5 ujEbrvnf71.0-33.0UnVeterans Health AdministrationComment on above:Performed By: #### [id number] #### [facility] ([facility]) [address] [place] [address]MMR (RBC) [Entitic vol]97.5 vBQuwlhe71.0-98.0UnVeterans Health AdministrationComment on above:Performed By: #### [id number] #### [facility] ([facility]) [address] [place] [address]JQCVPZITU (10*3/UL) IN BLOOD AUTOMATED ULENC406 10*3/uLNormal 150-400UnVeterans Health AdministrationComment on above:Performed By: #### [id number] #### [facility] ([facility]) [address] [place] [address]ISV (Bld) [#/Vol]2.75 10*6/uLLow4.20-5.70UnVeterans Health AdministrationComment on above:Performed By: #### [id number] #### [facility] ([facility]) [address] [place] [address]RLF (Bld) [#/Vol]7.43 10*3/uLNormal4.00-10.60UnVeterans Health AdministrationComment on above:Performed By: #### [id number] #### [facility] ([facility]) [address] [place] [address]YIRDVWUMNNXJQ METABOLIC PANELon 08-91-2952Efesrke [Mass/Vol]2.7 g/dLLow3.5-5.7UnVeterans Health AdministrationComment on above:Performed By: #### [id number] #### [facility] ([facility]) [address] [place] [address]HIE [Catalytic activity/Vol]110 U/WDpop39-245FkvouwqlvbVeterans Health AdministrationComment on above:Performed By: #### [id number] #### [facility] ([facility]) [address] [place], [place] [address]TVO [Catalytic activity/Vol]13 U/LNormal7-52UnVeterans Health AdministrationComment on above:Performed By: #### [id number] #### [facility] ([facility]) [address] [place], [place] [address]Zecjz gap [Moles/Vol]6 mmol/LLow7-20UnVeterans Health AdministrationComment on above:Performed By: #### [id number] #### [facility] ([facility]) [address] [place], [place] [address]JNR [Catalytic activity/Vol]13 U/HAnygzx08-85RhgjuldelqVeterans Health AdministrationComment on above:Performed By: #### [id number] #### [facility] ([facility]) [address] [place], [place] [address]Jydhxbktc [Mass/Vol]0.3 mg/dLNormal0.3-1.0UnVeterans Health AdministrationComment on above:Performed By: #### [id number] #### [facility] ([facility]) [address] [place], [place] [address]Mbvttfm [Mass/Vol]8.6 mg/dLNormal8.6-10.3UnVeterans Health AdministrationComment on above:Performed By: #### [id number] #### [facility] ([facility]) [address] [place], [place] [address]Wjpcxwhg [Moles/Vol]103 mmol/EBfjejy76-491UkcqmhwwhrVeterans Health AdministrationComment on above:Performed By: #### [id number] #### [facility] ([facility]) [address] [place], [place] [address]KW0 [Moles/Vol]36 mmol/EIwrb49-67MothzhcetbVeterans Health AdministrationComment on above:Performed By: #### [id number] #### [facility] ([facility]) [address] [place], [place] [address]Rpapbthgqo [Mass/Vol]0.46 mg/dLLow0.70-1.30UnVeterans Health AdministrationComment on above:Performed By: #### [id number] #### [facility] ([facility]) [address] [place] [address]RZEVCXSASS FILTRATION RATE ML/MIN/1.73 SQ M.OUGZNDHOC297.8 mL/min/1.73m*2Normal>60.0UnVeterans Health AdministrationComment on above: Result Comment: [facility]???s estimated glomerular filtration rate (eGFR) will no [...] affect anyone group of individuals.Performed By: #### [id number] #### [facility] ([facility]) [address] [place] [address]Bpgrvmw [Mass/Vol]113 mg/mLNlux40-110LyciodhxmuVeterans Health AdministrationComment on above:Performed By: #### [id number] #### [facility] ([facility]) [address] [place] [address]Vutjazlir [Moles/Vol]3.1 mmol/LLow3.5-5.1UnVeterans Health AdministrationComment on above:Performed By: #### [id number] #### [facility] ([facility]) [address] [place] [address]Gutahwe [Mass/Vol]5.5 g/dLLow6.0-8.3UnVeterans Health AdministrationComment on above:Performed By: #### [id number] #### [facility] ([facility]) [address] [place] [address]Vfkpru [Moles/Vol]142 mmol/PVoqbmj279-622UzugxhrxjnVeterans Health AdministrationComment on above:Performed By: #### [id number] #### [facility] ([facility]) [address] [place] [address]Amwo nitrogen [Mass/Vol]18 mg/dLNormal7-25UnVeterans Health AdministrationComment on above:Performed By: #### [id number] #### [facility] ([facility]) [address] [place], [place] [address]MTDD NITROGEN/CREATININE (MASS RATIO) IN SER/PLAS39.1Normal [facility] HospitalComment on above:Performed By: #### [id number] #### [facility] ([facility]) [address] [place], [place] [address]ICF WITH AUTO DIFFERENTIALon 29-63-3554Syrwpjcin (Bld) [#/Vol] 0.03 10*3/uLNormal0.00-0.20UnVeterans Health AdministrationComment on above: Performed By: #### [id number] #### [facility] ([facility]) [address] [facility] [place], [place] [address]Wgouwtbjq/100 WBC (Bld)0.5 %Normal0.0-1.0UnVeterans Health AdministrationComment on above:Performed By: #### [id number] #### [facility] ([facility]) [address] [place], [place] [address]Tusahfguuhf (Bld) [#/Vol]0.89 10*3/uLHigh0.00-0.50UnVeterans Health AdministrationComment on above:Performed By: #### [id number] #### [facility] ([facility]) [address] [facility] [place], [place] [address]Xmwtbksjndg/100 WBC (Bld)13.5 %High0.0-6.0UnVeterans Health AdministrationComment on above:Performed By: #### [id number] #### [facility] ([facility]) [address] [place], [place] [address]Toliejxbhpd distribution width (RBC) [Ratio]15.5 %High11.5-15.[address] [facility] HospitalComment on above:Performed By: #### [id number] #### [facility] [address] [place] [address]COONFZWXSNN MEAN CORPUSCULAR HEMOGLOBIN CONCENTRATION (G/DL) BY LULFKZJMV51.9 g/dLLow32.0-35.0UnVeterans Health AdministrationComment on above:Performed By: #### [id number] #### [facility] ([facility]) [address] [place] [address]Utclosvalf (Bld) [Volume fraction]27.8 %Low39.0-55.0UnVeterans Health AdministrationComment on above:Performed By: #### [id number] #### [facility] ([facility]) [address] [place] [address]Hegvrcacfy (Bld) [Mass/Vol]8.6 g/dLLow13.0-17.0UnVeterans Health AdministrationComment on above:Performed By: #### [id number] #### [facility] ([facility]) [address] [place] [address]Jaohxcxa granulocytes (Bld) [#/Vol]0.02 10*3/uLNormal0.00-0.[address] [facility] HospitalComment on above:Performed By: #### [id number] #### [facility] ([facility]) [address] [place] [address]Ecxoxzff granulocytes/100 WBC (Bld)0.3 %Normal0.0-1.0UnVeterans Health AdministrationComment on above:Performed By: #### [id number] #### [facility] ([facility]) [address] [place] [address]Tcqgneiobom (Bld) [#/Vol]0.80 10*3/uLLow1.20-4.00UnVeterans Health AdministrationComment on above:Performed By: #### [id number] #### [facility] ([facility]) [address] [place] [address]Teqqioftjkw/100 WBC (Bld)12.1 %Low20.0-45.0UnVeterans Health AdministrationComment on above:Performed By: #### [id number] #### [facility] ([facility]) [address] [place] [address]CNM (RBC) [Entitic mass]30.6 smHsvbju44.0-33.0UnVeterans Health AdministrationComment on above:Performed By: #### [id number] #### [facility] ([facility]) [address] [place], [place] [address]CRJ (RBC) [Entitic vol]98.9 pVOwga04.0-98.0UnVeterans Health AdministrationComment on above:Performed By: #### [id number] #### [facility] ([facility]) [address] [place] [address]Qfkvsjeor (Bld) [#/Vol]0.43 10*3/uLNormal0.10-1.00UnVeterans Health AdministrationComment on above:Performed By: #### [id number] #### [facility] ([facility]) [address] [facility] [place] [address]Hympcjmss/100 WBC (Bld)6.5 %Normal5.0-12.0UnVeterans Health AdministrationComment on above:Performed By: #### [id number] #### [facility] ([facility]) [address] [place] [address]Ufiwyyicrfg (Bld) [#/Vol]4.43 10*3/uLNormal1.60-7.60UnVeterans Health AdministrationComment on above:Performed By: #### [id number] #### [facility] ([facility]) [address] [place] [address]Xjhyehjlxhg/100 WBC (Bld)67.1 %Crayeh19.0-72.0UnVeterans Health AdministrationComment on above:Performed By: #### [id number] #### [facility] ([facility]) [address] [place] [address]KION (PER 100 WBCS) BY AUTOMATED COUNT0.0 %Hifuhn5UgnqrtuuurVeterans Health AdministrationComment on above:Performed By: #### [id number] #### [facility] ([facility]) [address] [address]BQLALSAPJ (10*3/UL) IN BLOOD AUTOMATED TOEWJ204 10*3/uLNormal 150-400UnVeterans Health AdministrationComment on above:Performed By: #### [id number] #### [facility] ([facility]) [address] [place] [address]HPM (Bld) [#/Vol]2.81 10*6/uLLow4.20-5.70UnVeterans Health AdministrationComment on above:Performed By: #### [id number] #### [facility] ([facility]) [address] [address]EGZ (Bld) [#/Vol]6.60 10*3/uLNormal4.00-10.60UnVeterans Health AdministrationComment on above:Performed By: #### [id number] #### [facility] ([facility]) [address] [place] [address]ERRZHCSCYZRYO METABOLIC PANELon 74-33-9355Kkgjvdl [Mass/Vol]2.9 g/dLLow3.5-5.7UnVeterans Health AdministrationComment on above:Performed By: #### [id number] #### [facility] ([facility]) [address] [place] [address]UOM [Catalytic activity/Vol]119 U/PDxjz32-409BqgwagnomwVeterans Health AdministrationComment on above:Performed By: #### [id number] #### [facility] ([facility]) [address] [place], [place] [address]RPV [Catalytic activity/Vol]12 U/LNormal7-52UnVeterans Health AdministrationComment on above:Performed By: #### [id number] #### [facility] ([facility]) [address] [place], [place] [address]Hfoor gap [Moles/Vol]10 mmol/LNormal7-20UnVeterans Health AdministrationComment on above:Performed By: #### [id number] #### [facility] ([facility]) [address] [place] [address]OLK [Catalytic activity/Vol]15 U/BDpxicq66-23UolgjssmtyVeterans Health AdministrationComment on above:Performed By: #### [id number] #### [facility] ([facility]) [address] [place], [place] [address]Kvshcbxpy [Mass/Vol]0.4 mg/dLNormal0.3-1.0UnVeterans Health AdministrationComment on above:Performed By: #### [id number] #### [facility] ([facility]) [address] [place], [place] [address]Ajwuqsg [Mass/Vol]8.7 mg/dLNormal8.6-10.3UnVeterans Health AdministrationComment on above:Performed By: #### [id number] #### [facility] ([facility]) [address] [place], [place] [address]Gpjbjmlj [Moles/Vol]103 mmol/KWifeyt71-995QvggwcqzagVeterans Health AdministrationComment on above:Performed By: #### [id number] #### [facility] ([facility]) [address] [place] [address]YW6 [Moles/Vol]31 mmol/PMeilog00-38DgbsmgjanuVeterans Health AdministrationComment on above:Performed By: #### [id number] #### [facility] ([facility]) [address] [place], [place] [address]Oopcdpgprl [Mass/Vol]0.47 mg/dLLow0.70-1.30UnVeterans Health AdministrationComment on above:Performed By: #### [id number] #### [facility] ([facility]) [address] [place], [place] [address]PERXWONJST FILTRATION RATE ML/MIN/1.73 SQ M.ZDPEXVPXC053.1 mL/min/1.73m*2Normal>60.0UnVeterans Health AdministrationComment on above: Result Comment: [facility]???s estimated glomerular filtration rate (eGFR) will no [...] affect anyone group of individuals.Performed By: #### [id number] #### [facility] ([facility]) [address] [place], [place] [address]Ogswoip [Mass/Vol]114 mg/tWYyvy91-911BthvjftmzxVeterans Health AdministrationComment on above:Performed By: #### [id number] #### [facility] ([facility]) [address] [place], [place] [address]Zxejmceph [Moles/Vol]3.3 mmol/LLow3.5-5.1UnVeterans Health AdministrationComment on above:Performed By: #### [id number] #### [facility] ([facility]) [address] [place], [place] [address]Gcvgcno [Mass/Vol]5.9 g/dLLow6.0-8.3UnVeterans Health AdministrationComment on above:Performed By: #### [id number] #### [facility] ([facility]) [address] [place], [place] [address]Daxoys [Moles/Vol]141 mmol/ACtvdnb618-402GpukqyccftVeterans Health AdministrationComment on above:Performed By: #### [id number] #### [facility] [address] [place], [place] [address]Tuko nitrogen [Mass/Vol]13 mg/dLNormal7-25UnVeterans Health AdministrationComment on above:Performed By: #### [id number] #### [facility] ([facility]) [address] [place], [place] [address]VQLA NITROGEN/CREATININE (MASS RATIO) IN SER/PLAS27.7Normal [facility] HospitalComment on above:Performed By: #### [id number] #### [facility] ([facility]) [address] [place] [address]ANTLDNLKTpe 10-44-5129Cvqjhfdxa [Mass/Vol]1.9 mg/dLNormal1.9-2.[address] [facility] HospitalComment on above:Performed By: #### [id number] #### [facility] ([facility]) [address] [facility] [place], [place] [address]OJX WITH AUTO DIFFERENTIALon 91-71-4819Gqpnxqdls (Bld) [#/Vol] 0.02 10*3/uLNormal0.00-0.20UnVeterans Health AdministrationComment on above: Performed By: #### [id number] #### [facility] ([facility]) [address] [place], [place] [address]Bqzxjxgln/100 WBC (Bld)0.3 %Normal0.0-1.0UnVeterans Health AdministrationComment on above:Performed By: #### [id number] #### [facility] ([facility]) [address] [place], [place] [address]Iqjcwdxwifr (Bld) [#/Vol]0.81 10*3/uLHigh0.00-0.50UnVeterans Health AdministrationComment on above:Performed By: #### [id number] #### [facility] ([facility]) [address] [facility] [place] [address]Lcxmkmhianc/100 WBC (Bld)13.9 %High0.0-6.0UnVeterans Health AdministrationComment on above:Performed By: #### [id number] #### [facility] ([facility]) [address] [facility] [place], [place] [address]Irhwerlqrxa distribution width (RBC) [Ratio]15.5 %High11.5-15.[address] [facility] HospitalComment on above:Performed By: #### [id number] #### [facility] ([facility]) [address] [place], [place] [address]HFHEHSGUFXM MEAN CORPUSCULAR HEMOGLOBIN CONCENTRATION (G/DL) BY HTRWYLYZM39.4 g/dLLow32.0-35.0UnVeterans Health AdministrationComment on above:Performed By: #### [id number] #### [facility] ([facility]) [address] [place] [address]Bgescsebol (Bld) [Volume fraction]25.5 %Low39.0-55.0UnVeterans Health AdministrationComment on above:Performed By: #### [id number] #### [facility] ([facility]) [address] [facility] [place], [place] [address]Kzxzmlbixi (Bld) [Mass/Vol]8.0 g/dLLow13.0-17.0UnVeterans Health AdministrationComment on above:Performed By: #### [id number] #### [facility] ([facility]) [address] [place], [place] [address]Ipxoobaa granulocytes (Bld) [#/Vol]0.02 10*3/uLNormal0.00-0.[address] [facility] HospitalComment on above:Performed By: #### [id number] #### [facility] ([facility]) [address] [place], [place] [address]Qcqoeckj granulocytes/100 WBC (Bld)0.3 %Normal0.0-1.0UnVeterans Health AdministrationComment on above:Performed By: #### [id number] #### [facility] ([facility]) [address] [place] [address]Mnksdiqznnj (Bld) [#/Vol]1.05 10*3/uLLow1.20-4.00UnVeterans Health AdministrationComment on above:Performed By: #### [id number] #### [facility] ([facility]) [address] [place] [address]Kzlbgxknjok/100 WBC (Bld)18.0 %Low20.0-45.0UnVeterans Health AdministrationComment on above:Performed By: #### [id number] #### [facility] ([facility]) [address] [place], [place] [address]YNS (RBC) [Entitic mass]30.3 moHnescn39.0-33.0UnVeterans Health AdministrationComment on above:Performed By: #### [id number] #### [facility] ([facility]) [address] [place], [place] [address]TBG (RBC) [Entitic vol]96.6 bFJlojoy50.0-98.0UnVeterans Health AdministrationComment on above:Performed By: #### [id number] #### [facility] ([facility]) [address] [place], [place] [address]Nvjtmbabr (Bld) [#/Vol]0.50 10*3/uLNormal0.10-1.00UnVeterans Health AdministrationComment on above:Performed By: #### [id number] #### [facility] ([facility]) [address] [place], [place] [address]Cykeucxpq/100 WBC (Bld)8.6 %Normal5.0-12.0UnVeterans Health AdministrationComment on above:Performed By: #### [id number] #### [facility] ([facility]) [address] [place], [place] [address]Xoqwchyzjlk (Bld) [#/Vol]3.43 10*3/uLNormal1.60-7.60UnVeterans Health AdministrationComment on above:Performed By: #### [id number] #### [facility] ([facility]) [address] [place], [place] [address]Xajzrpfbhhw/100 WBC (Bld)58.9 %Zdghgf56.0-72.0UnVeterans Health AdministrationComment on above:Performed By: #### [id number] #### [facility] ([facility]) [address] [place], [place] [address]EXUT (PER 100 WBCS) BY AUTOMATED COUNT0.0 %Tprwxv5MlynrrmyqaVeterans Health AdministrationComment on above:Performed By: #### [id number] #### [facility] ([facility]) [address] [place] [place] [address]XHGGPJPHH (10*3/UL) IN BLOOD AUTOMATED [id number] 10*3/uLNormal 150-400UnVeterans Health AdministrationComment on above:Performed By: #### [id number] #### [facility] ([facility]) [address] [place] [address]QEL (Bld) [#/Vol]2.64 10*6/uLLow4.20-5.70UnVeterans Health AdministrationComment on above:Performed By: #### [id number] #### [facility] ([facility]) [address] [place] [address]GPK (Bld) [#/Vol]5.83 10*3/uLNormal4.00-10.60UnVeterans Health AdministrationComment on above:Performed By: #### [id number] #### [facility] ([facility]) [address] [place] [address]KCGQCZEDCGMJQ METABOLIC PANELon 59-73-5989Xmari gap [Moles/Vol]8 mmol/LNormal7-20UnVeterans Health AdministrationComment on above:Performed By: #### [id number] #### [facility] ([facility]) [address] [place] [address]Isaacov [Mass/Vol]8.4 mg/dLLow8.6-10.3UnVeterans Health AdministrationComment on above:Performed By: #### [id number] #### [facility] ([facility]) [address] [place] [address]Grtihufh [Moles/Vol]101 mmol/KSbljgf24-970LlfenrybptVeterans Health AdministrationComment on above:Performed By: #### [id number] #### [facility] ([facility]) [address] [place], [place] [address]YN1 [Moles/Vol]29 mmol/PMkqgxk18-33AlwhpgbqwrVeterans Health AdministrationComment on above:Performed By: #### [id number] #### [facility] ([facility]) [address] [place] [address]Tgrhzmajhj [Mass/Vol]0.50 mg/dLLow0.70-1.30UnVeterans Health AdministrationComment on above:Performed By: #### [id number] #### [facility] ([facility]) [address] [place] [address]UGBHGWPGAN FILTRATION RATE ML/MIN/1.73 SQ M.OVVTGGYCH659.2 mL/min/1.73m*2Normal>60.0UnVeterans Health AdministrationComment on above: Result Comment: [facility]???s estimated glomerular filtration rate (eGFR) will no [...] affect anyone group of individuals.Performed By: #### [id number] #### [facility] ([facility]) [address] [place] [address]Uukwyuj [Mass/Vol]91 mg/uKTtykjn17-558KztpcpkbcjVeterans Health AdministrationComment on above:Performed By: #### [id number] #### [facility] ([facility]) [address] [place] [address]Lvcccfijn [Moles/Vol]3.5 mmol/LNormal3.5-5.1UnVeterans Health AdministrationComment on above:Performed By: #### [id number] #### [facility] ([facility]) [address] [place] [address]Rihsfm [Moles/Vol]134 mmol/VJlg048-173HpfatguowsVeterans Health AdministrationComment on above:Performed By: #### [id number] #### [facility] ([facility]) [address] [place] [address]Ganw nitrogen [Mass/Vol]6 mg/dLLow7-25UnVeterans Health AdministrationComment on above:Performed By: #### [id number] #### [facility] ([facility]) [address] [place], [place] [address]PDME NITROGEN/CREATININE (MASS RATIO) IN SER/PLAS12.0Normal [facility] HospitalComment on above:Performed By: #### [id number] #### [facility] ([facility]) [address] [place], [place] [address]BETOQOS FUNCTION PANELon 55-66-1459Erlctwl [Mass/Vol]2.7 g/dLLow 3.5-5.7[facility] HospitalComment on above:Performed By: #### [id number] #### [facility] ([facility]) [address] [place], [place] [address]Pkpqsogbe By: #### [id number] #### [facility] ([facility]) [address] [place], [place] [address]QKE [Catalytic activity/Vol]106 U/UKpwy09-974DjlejmmexmVeterans Health AdministrationComment on above:Performed By: #### [id number] #### [facility] ([facility]) [address] [place], [place] [address]Zofadmpma By: #### [id number] #### [facility] ([facility]) [address] [place], [place] [address]JIG [Catalytic activity/Vol]15 U/LNormal7-52UnVeterans Health AdministrationComment on above:Performed By: #### [id number] #### [facility] ([facility]) [address] [place], [place] [address]Ejopusyfs By: #### [id number] #### [facility] ([facility]) [address] [place], [place] [address]NXJ [Catalytic activity/Vol]16 U/RXywvul40-55AxlzpdbiggVeterans Health AdministrationComment on above:Performed By: #### [id number] #### [facility] ([facility]) [address] [place], [place] [address]Rayrofjup By: #### [id number] #### [facility] ([facility]) [address] [place], [place] [address]Rgundutir [Mass/Vol]0.5 mg/dLNormal0.3-1.0UnVeterans Health AdministrationComment on above:Performed By: #### [id number] #### [facility] ([facility]) [address] [place], [place] [address]Rcdcjvizp By: #### [id number] #### [facility] ([facility]) [address] [place], [place] [address]Cupgjrbui [Mass/Vol]0.1 mg/dLNormal0-0.2UnVeterans Health AdministrationComment on above:Performed By: #### [id number] #### [facility] ([facility]) [address] [place], [place] [address]Uxxxolz [Mass/Vol]5.7 g/dLLow6.0-8.3UnVeterans Health AdministrationComment on above:Performed By: #### [id number] #### [facility] ([facility]) [address] [place], [place] [address]Bytvjfspf By: #### [id number] #### [facility] ([facility]) [address] [place], [place] [address]XPJUSYMPLqj 27-92-1429Rdoeazbbd [Mass/Vol]1.8 mg/dLLow1.9-2.[address] [facility] HospitalComment on above:Performed By: #### [id number] #### [facility] ([facility]) [address] [place], [place] [address]FBHJWSPNIMcd 78-71-9062Evpihyvpd [Mass/Vol]3.2 mg/dLNormal 2.5-5.0UnVeterans Health AdministrationComment on above:Performed By: #### [id number] #### [facility] ([facility]) [address] [place], [place] [address]JLYVYSMPNISMHjx 28-05-96[address]TCXRVKD?UnknownNormalUniversity ProMedica Memorial HospitalComment on above:Performed By: #### [id number] #### [facility] ([facility]) [address] [place], [place] [address]Izxfduogp [Mass/Vol]100 mg/kENrurlr43-002EqkdmowkjrVeterans Health AdministrationComment on above:Result Comment: TRIGLYCERIDE REFERENCE RANGE: 20 YEARS AND OLDER CARDIOVASCULAR RISK LESS THAN 150 mg/dL LOW RISK 150 TO 199 mg/dL BORDERLINE RISK 200 mg/dL AND GREATER HIGH RISKPerformed By: #### [id number] #### [facility] ([facility]) [address] [place], [place] [address]XHBDZ METABOLIC PANELon 04-07-3965Wtmve gap [Moles/Vol]8 mmol/L Normal7-20UnVeterans Health AdministrationComment on above:Performed By: #### [id number] #### [facility] ([facility]) [address] [place], [place] [address]Awevfnq [Mass/Vol]8.3 mg/dLLow8.6-10.3UnVeterans Health AdministrationComment on above:Performed By: #### [id number] #### [facility] ([facility]) [address] [place], [place] [address]Vdanyqtx [Moles/Vol]102 mmol/MRfmqni69-332HqqkcsyuktVeterans Health AdministrationComment on above:Performed By: #### [id number] #### [facility] ([facility]) [address] [place], [place] [address]GX0 [Moles/Vol]30 mmol/DEghuyn01-93PyfzuvykwiVeterans Health AdministrationComment on above:Performed By: #### [id number] #### [facility] ([facility]) [address] [place], [place] [address]Zzdqwsfjmq [Mass/Vol]0.54 mg/dLLow0.70-1.30UnVeterans Health AdministrationComment on above:Performed By: #### [id number] #### [facility] ([facility]) [address] [place], [place] [address]KSTTTHQDPN FILTRATION RATE ML/MIN/1.73 SQ M.RPMZVWWYE22.9 mL/min/1.73m*2Normal>60.0UnVeterans Health AdministrationComment on above: Result Comment: [facility]???s estimated glomerular filtration rate (eGFR) will no [...] affect anyone group of individuals.Performed By: #### [id number] #### [facility] ([facility]) [address] [place], [place] [address]Ctxpdjl [Mass/Vol]92 mg/oIUkeqfe14-707KytslvafbgVeterans Health AdministrationComment on above:Performed By: #### [id number] #### [facility] ([facility]) [address] [place], [place] [address]Ugqllqlsz [Moles/Vol]3.6 mmol/LNormal3.5-5.1UnVeterans Health AdministrationComment on above:Performed By: #### [id number] #### [facility] ([facility]) [address] [place], [place] [address]Yqkpuc [Moles/Vol]136 mmol/AAcqabq440-634UduftslkcaVeterans Health AdministrationComment on above:Performed By: #### [id number] #### [facility] ([facility]) [address] [place], [place] [address]Nrgd nitrogen [Mass/Vol]7 mg/dLNormal7-25UnVeterans Health AdministrationComment on above:Performed By: #### [id number] #### [facility] ([facility]) [address] [place], [place] [address]GTMV NITROGEN/CREATININE (MASS RATIO) IN SER/PLAS13.0Normal [facility] HospitalComment on above:Performed By: #### [id number] #### [facility] ([facility]) [address] [place], [place] [address]BWA WITH AUTO DIFFERENTIALon 23-15-3285Gcradahma (Bld) [#/Vol] 0.03 10*3/uLNormal0.00-0.20UnVeterans Health AdministrationComment on above: Performed By: #### [id number] #### [facility] ([facility]) [address] [place] [address]Orcxlheis/100 WBC (Bld)0.5 %Normal0.0-1.0UnVeterans Health AdministrationComment on above:Performed By: #### [id number] #### [facility] ([facility]) [address] [facility] [place], [place] [address]Xmaerlqzrdx (Bld) [#/Vol]0.70 10*3/uLHigh0.00-0.50UnVeterans Health AdministrationComment on above:Performed By: #### [id number] #### [facility] ([facility]) [address] [facility] [place] [address]Zjpdxewdjve/100 WBC (Bld)11.8 %High0.0-6.0UnVeterans Health AdministrationComment on above:Performed By: #### [id number] #### [facility] ([facility]) [address] [facility] [place], [place] [address]Dfbhixrhyzc distribution width (RBC) [Ratio]15.3 %High11.5-15.[address] [facility] HospitalComment on above:Performed By: #### [id number] #### [facility] ([facility]) [address] [place], [place] [address]DQZEGPSKTQP MEAN CORPUSCULAR HEMOGLOBIN CONCENTRATION (G/DL) BY ZEHQKLEEZ67.9 g/dLLow32.0-35.0UnVeterans Health AdministrationComment on above:Performed By: #### [id number] #### [facility] ([facility]) [address] [facility] [place], [place] [address]Vicjyteuyy (Bld) [Volume fraction]26.3 %Low39.0-55.0UnVeterans Health AdministrationComment on above:Performed By: #### [id number] #### [facility] ([facility]) [address] [place], [place] [address]Henkdyfpve (Bld) [Mass/Vol]8.4 g/dLLow13.0-17.0UnVeterans Health AdministrationComment on above:Performed By: #### [id number] #### [facility] ([facility]) [address] [place], [place] [address]Kyxeqfqg granulocytes (Bld) [#/Vol]0.02 10*3/uLNormal0.00-0.[address] [facility] HospitalComment on above:Performed By: #### [id number] #### [facility] ([facility]) [address] [place] [address]Sgvjpebn granulocytes/100 WBC (Bld)0.3 %Normal0.0-1.0UnVeterans Health AdministrationComment on above:Performed By: #### [id number] #### [facility] ([facility]) [address] [place] [address]Avyqddkvhyk (Bld) [#/Vol]0.92 10*3/uLLow1.20-4.00UnVeterans Health AdministrationComment on above:Performed By: #### [id number] #### [facility] ([facility]) [address] [place] [address]Jveevejuujn/100 WBC (Bld)15.5 %Low20.0-45.0UnVeterans Health AdministrationComment on above:Performed By: #### [id number] #### [facility] ([facility]) [address] [facility] [place], [place] [address]DBI (RBC) [Entitic mass]30.3 xeVkcckn75.0-33.0UnVeterans Health AdministrationComment on above:Performed By: #### [id number] #### [facility] ([facility]) [address] [place], [place] [address]MHG (RBC) [Entitic vol]94.9 pIKmhllr84.0-98.0UnVeterans Health AdministrationComment on above:Performed By: #### [id number] #### [facility] ([facility]) [address] [place] [address]Ddkafatnr (Bld) [#/Vol]0.33 10*3/uLNormal0.10-1.00UnVeterans Health AdministrationComment on above:Performed By: #### [id number] #### [facility] ([facility]) [address] [place] [address]Osjqpmeyg/100 WBC (Bld)5.5 %Normal5.0-12.0UnVeterans Health AdministrationComment on above:Performed By: #### [id number] #### [facility] ([facility]) [address] [place] [address]Txqcduwlbgr (Bld) [#/Vol]3.95 10*3/uLNormal1.60-7.60UnVeterans Health AdministrationComment on above:Performed By: #### [id number] #### [facility] ([facility]) [address] [place] [address]Jbthcctgvpg/100 WBC (Bld)66.4 %Ctanxq65.0-72.0UnVeterans Health AdministrationComment on above:Performed By: #### [id number] #### [facility] ([facility]) [address] [place] [address]JDPJ (PER 100 WBCS) BY AUTOMATED COUNT0.0 %Glrsfy3ZklkhllvyiVeterans Health AdministrationComment on above:Performed By: #### [id number] #### [facility] ([facility]) [address] [place] [address]XNMURPMEW (10*3/UL) IN BLOOD AUTOMATED [id number] 10*3/uLNormal 150-400UnVeterans Health AdministrationComment on above:Performed By: #### [id number] #### [facility] ([facility]) [address] [place] [address]MQO (Bld) [#/Vol]2.77 10*6/uLLow4.20-5.70UnVeterans Health AdministrationComment on above:Performed By: #### [id number] #### [facility] ([facility]) [address] [place] [address]MBJ (Bld) [#/Vol]5.95 10*3/uLNormal4.00-10.60UnVeterans Health AdministrationComment on above:Performed By: #### [id number] #### [facility] ([facility]) [address] [place] [address]ARHLTXVLYgn 16-18-3104Rbodpsakb [Mass/Vol]2.1 mg/dLNormal1.9-2.[address] [facility] HospitalComment on above:Performed By: #### [id number] #### [facility] ([facility]) [address] [place] [address]SQP WITH AUTO DIFFERENTIALon 65-23-63[address]Ocohxygkr (Bld) [#/Vol] 0.02 10*3/uLNormal0.00-0.20UnVeterans Health AdministrationComment on above: Performed By: #### [id number] #### [facility] ([facility]) [address] [place] [address]Msybiuick/100 WBC (Bld)0.3 %Normal0.0-1.0UnVeterans Health AdministrationComment on above:Performed By: #### [id number] #### [facility] ([facility]) [address] [place] [address]Slkcjjlglae (Bld) [#/Vol]0.73 10*3/uLHigh0.00-0.50UnVeterans Health AdministrationComment on above:Performed By: #### [id number] #### [facility] ([facility]) [address] [place] [address]Kigjnteyybl/100 WBC (Bld)12.1 %High0.0-6.0UnVeterans Health AdministrationComment on above:Performed By: #### [id number] #### [facility] ([facility]) [address] [place] [address]Axgomileyfg distribution width (RBC) [Ratio]15.4 %High11.5-15.[address] [facility] HospitalComment on above:Performed By: #### [id number] #### [facility] ([facility]) [address] [place] [address]HAFIJHUVXCQ MEAN CORPUSCULAR HEMOGLOBIN CONCENTRATION (G/DL) BY CWRSZEFHY14.5 g/oYYneitw14.0-35.0UnVeterans Health AdministrationComment on above:Performed By: #### [id number] #### [facility] ([facility]) [address] [place] [address]Fiaastptoa (Bld) [Volume fraction]24.9 %Low39.0-55.0UnVeterans Health AdministrationComment on above:Performed By: #### [id number] #### [facility] ([facility]) [address] [place] [place], [place] [address]Osklkbmaox (Bld) [Mass/Vol]8.1 g/dLLow13.0-17.0UnVeterans Health AdministrationComment on above:Performed By: #### [id number] #### [facility] ([facility]) [address] [place] [address]Gfxzvsqm granulocytes (Bld) [#/Vol]0.03 10*3/uLNormal0.00-0.[address] [facility] HospitalComment on above:Performed By: #### [id number] #### [facility] ([facility]) [address] [place] [address]Otaeggxg granulocytes/100 WBC (Bld)0.5 %Normal0.0-1.0UnVeterans Health AdministrationComment on above:Performed By: #### [id number] #### [facility] ([facility]) [address] [place] [address]Zxzcgvnwhku (Bld) [#/Vol]0.86 10*3/uLLow1.20-4.00UnVeterans Health AdministrationComment on above:Performed By: #### [id number] #### [facility] ([facility]) [address] [facility] [place] [address]Srqhcahaojv/100 WBC (Bld)14.3 %Low20.0-45.0UnVeterans Health AdministrationComment on above:Performed By: #### [id number] #### [facility] ([facility]) [address] [place] [address]BZO (RBC) [Entitic mass]30.5 xsOvpmst83.0-33.0UnVeterans Health AdministrationComment on above:Performed By: #### [id number] #### [facility] ([facility]) [address] [facility] [place], [place] [address]XYV (RBC) [Entitic vol]93.6 yOHdhnho54.0-98.0UnVeterans Health AdministrationComment on above:Performed By: #### [id number] #### [facility] ([facility]) [address] [facility] [place], [place] [address]Pqdzkxotq (Bld) [#/Vol]0.40 10*3/uLNormal0.10-1.00UnVeterans Health AdministrationComment on above:Performed By: #### [id number] #### [facility] ([facility]) [address] [place], [place] [address]Yywwvotdj/100 WBC (Bld)6.7 %Normal5.0-12.0UnVeterans Health AdministrationComment on above:Performed By: #### [id number] #### [facility] ([facility]) [address] [facility] [place] [address]Pfvcwwkgarx (Bld) [#/Vol]3.97 10*3/uLNormal1.60-7.60UnVeterans Health AdministrationComment on above:Performed By: #### [id number] #### [facility] ([facility]) [address] [place], [place] [address]Fwfhmegrphn/100 WBC (Bld)66.1 %Nwlrlm88.0-72.0UnVeterans Health AdministrationComment on above:Performed By: #### [id number] #### [facility] ([facility]) [address] [place] [address]SXGG (PER 100 WBCS) BY AUTOMATED COUNT0.0 %Wfpumm2IybpsllnwfVeterans Health AdministrationComment on above:Performed By: #### [id number] #### [facility] ([facility]) [address] [place] [address]MMAPZFVDB (10*3/UL) IN BLOOD AUTOMATED PAFTP267 10*3/uLNormal 150-400UnVeterans Health AdministrationComment on above:Performed By: #### [id number] #### [facility] ([facility]) [address] [place] [address]ECG (Bld) [#/Vol]2.66 10*6/uLLow4.20-5.70UnVeterans Health AdministrationComment on above:Performed By: #### [id number] #### [facility] ([facility]) [address] [address]AXH (Bld) [#/Vol]6.01 10*3/uLNormal4.00-10.60UnVeterans Health AdministrationComment on above:Performed By: #### [id number] #### [facility] ([facility]) [address] [place] [address]CZVNBMKRQJYZF METABOLIC PANELon 92-53-4221Tecufgo [Mass/Vol]2.7 g/dLLow3.5-5.7UnVeterans Health AdministrationComment on above:Performed By: #### [id number] #### [facility] ([facility]) [address] [place] [address]CLB [Catalytic activity/Vol]106 U/KZzxf19-185DiqzecqyslVeterans Health AdministrationComment on above:Performed By: #### [id number] #### [facility] ([facility]) [address] [place] [address]HTK [Catalytic activity/Vol]16 U/LNormal7-52UnVeterans Health AdministrationComment on above:Performed By: #### [id number] #### [facility] ([facility]) [address] [place], [place] [address]Yqtjs gap [Moles/Vol]8 mmol/LNormal7-20UnVeterans Health AdministrationComment on above:Performed By: #### [id number] #### [facility] ([facility]) [address] [place], [place] [address]FCW [Catalytic activity/Vol]12 U/DXpf77-04KbdgpwsgarVeterans Health AdministrationComment on above:Performed By: #### [id number] #### [facility] ([facility]) [address] [place], [place] [address]Tmkhmylwt [Mass/Vol]0.4 mg/dLNormal0.3-1.0UnVeterans Health AdministrationComment on above:Performed By: #### [id number] #### [facility] ([facility]) [address] [place], [place] [address]Xevtqpv [Mass/Vol]8.3 mg/dLLow8.6-10.3UnVeterans Health AdministrationComment on above:Performed By: #### [id number] #### [facility] ([facility]) [address] [place], [place] [address]Kfchlifa [Moles/Vol]101 mmol/ETaqqte75-217VxxldvmueeVeterans Health AdministrationComment on above:Performed By: #### [id number] #### [facility] ([facility]) [address] [place], [place] [address]CB8 [Moles/Vol]28 mmol/SOrogaa44-31WsrvxljcwvVeterans Health AdministrationComment on above:Performed By: #### [id number] #### [facility] ([facility]) [address] [place], [place] [address]Loaknhlrel [Mass/Vol]0.55 mg/dLLow0.70-1.30UnVeterans Health AdministrationComment on above:Performed By: #### [id number] #### [facility] ([facility]) [address] [place], [place] [address]RIRNDUJUUN FILTRATION RATE ML/MIN/1.73 SQ M.BNCQEXMSL62.3 mL/min/1.73m*2Normal>60.0UnVeterans Health AdministrationComment on above: Result Comment: [facility]???s estimated glomerular filtration rate (eGFR) will no [...] group of individuals.Performed By: #### [id number] #### [facility] ([facility]) [address] [place], [place] [address]Wcffoof [Mass/Vol]102 mg/rNOxjz52-324WedmpoczqpVeterans Health AdministrationComment on above:Performed By: #### [id number] #### [facility] ([facility]) [address] [place], [place] [address]Fvdajkhos [Moles/Vol]3.4 mmol/LLow3.5-5.1UnVeterans Health AdministrationComment on above:Performed By: #### [id number] #### [facility] ([facility]) [address] [place], [place] [address]Odyuhvt [Mass/Vol]5.5 g/dLLow6.0-8.3UnVeterans Health AdministrationComment on above:Performed By: #### [id number] #### [facility] ([facility]) [address] [place], [place] [address]Keorji [Moles/Vol]134 mmol/NLxy970-297KdmdetjslcVeterans Health AdministrationComment on above:Performed By: #### [id number] #### [facility] ([facility]) [address] [place], [place] [address]Bnut nitrogen [Mass/Vol]10 mg/dLNormal7-25UnVeterans Health AdministrationComment on above:Performed By: #### [id number] #### [facility] ([facility]) [address] [place], [place] [address]ACGQ NITROGEN/CREATININE (MASS RATIO) IN SER/PLAS18.2Normal [facility] HospitalComment on above:Performed By: #### [id number] #### [facility] ([facility]) [address] [place] [address]SWIJVYP FUNCTION PANELon 70-18-6344Bbpeffplq [Mass/Vol]0.2 mg/dL Normal0-0.2UnVeterans Health AdministrationComment on above:Performed By: #### [id number] #### [facility] ([facility]) [address] [place] 006[address]PBFKPCYKGpm 90-82-2765Apoddfqub [Mass/Vol]1.6 mg/dLLow1.9-2.[address] [facility] HospitalComment on above:Performed By: #### [id number] #### [facility] ([facility]) [address] [place] [address]FDQET METABOLIC PANELon 51-71-3307Gfvfs gap [Moles/Vol]9 mmol/L Normal7-20UnVeterans Health AdministrationComment on above:Performed By: #### [id number] #### [facility] ([facility]) [address] [place], [place] [address]Hausxdp [Mass/Vol]8.7 mg/dLNormal8.6-10.3UnVeterans Health AdministrationComment on above:Performed By: #### [id number] #### [facility] ([facility]) [address] [place], [place] [address]Zcdmkjaf [Moles/Vol]100 mmol/HVxrkym49-185KellczhhslVeterans Health AdministrationComment on above:Performed By: #### [id number] #### [facility] ([facility]) [address] [place], [place] [address]IA8 [Moles/Vol]29 mmol/ZGujfyo59-08SszezheflsVeterans Health AdministrationComment on above:Performed By: #### [id number] #### [facility] ([facility]) [address] [place], [place] [address]Ytwynnjcwk [Mass/Vol]0.52 mg/dLLow0.70-1.30UnVeterans Health AdministrationComment on above:Performed By: #### [id number] #### [facility] ([facility]) [address] [place] [address]KUUWYVSJMM FILTRATION RATE ML/MIN/1.73 SQ M.DHXXEGWMF842.0 mL/min/1.73m*2Normal>60.0UnVeterans Health AdministrationComment on above: Result Comment: [facility]???s estimated glomerular filtration rate (eGFR) will no [...] affect anyone group of individuals.Performed By: #### [id number] #### [facility] ([facility]) [address] [place], [place] [address]Hoxqgxq [Mass/Vol]95 mg/sZNtkixj02-672ZihcobfgovVeterans Health AdministrationComment on above:Performed By: #### [id number] #### [facility] ([facility]) [address] [place] [address]Caegklpdo [Moles/Vol]3.6 mmol/LNormal3.5-5.1UnVeterans Health AdministrationComment on above:Performed By: #### [id number] #### [facility] ([facility]) [address] [facility] [place] [address]Pvivos [Moles/Vol]134 mmol/TAeg212-415OhqrqmdhhhVeterans Health AdministrationComment on above:Performed By: #### [id number] #### [facility] ([facility]) [address] [facility] [place], [place] [address]Bdpp nitrogen [Mass/Vol]21 mg/dLNormal7-25UnVeterans Health AdministrationComment on above:Performed By: #### [id number] #### [facility] ([facility]) [address] [place], [place] [address]SRJV NITROGEN/CREATININE (MASS RATIO) IN SER/PLAS40.4Normal [facility] HospitalComment on above:Performed By: #### [id number] #### [facility] ([facility]) [address] [place] [address]TCZle 09-17-3960Hmvaangwsmr distribution width (RBC) [Ratio]15.5 %High11.5-15.0UnVeterans Health AdministrationComment on above:Performed By: #### [id number] #### [facility] ([facility]) [address] [place], [place] [address]LANFZCQUXYK MEAN CORPUSCULAR HEMOGLOBIN CONCENTRATION (G/DL) BY IMTSZZLQU14.8 g/dLLow32.0-35.0UnVeterans Health AdministrationComment on above:Performed By: #### [id number] #### [facility] ([facility]) [address] [place], [place] [address]Kxzvhgjqng (Bld) [Volume fraction]28.0 %Low39.0-55.0UnVeterans Health AdministrationComment on above:Performed By: #### [id number] #### [facility] ([facility]) [address] [place], [place] [address]Wbmzdaefgu (Bld) [Mass/Vol]8.9 g/dLLow13.0-17.0UnVeterans Health AdministrationComment on above:Performed By: #### [id number] #### [facility] ([facility]) [address] [place], [place] [address]VRK (RBC) [Entitic mass]31.3 seGwqaqk38.0-33.0UnVeterans Health AdministrationComment on above:Performed By: #### [id number] #### [facility] ([facility]) [address] [place], [place] [address]HHN (RBC) [Entitic vol]98.6 qMHnxx68.0-98.0UnVeterans Health AdministrationComment on above:Performed By: #### [id number] #### [facility] ([facility]) [address] [place] [address]CTVNJKBWF (10*3/UL) IN BLOOD AUTOMATED [id number] 10*3/uLNormal 150-400UnVeterans Health AdministrationComment on above:Performed By: #### [id number] #### [facility] ([facility]) [address] [place] [address]BEX (Bld) [#/Vol]2.84 10*6/uLLow4.20-5.70UnVeterans Health AdministrationComment on above:Performed By: #### [id number] #### [facility] ([facility]) [address] [place] [address]TON (Bld) [#/Vol]5.94 10*3/uLNormal4.00-10.60UnVeterans Health AdministrationComment on above:Performed By: #### [id number] #### [facility] ([facility]) [address] [place] [address]YEDcc 08-67-9112Fkyxokljxvz distribution width (RBC) [Ratio]16.1 %High11.5-15.0UnVeterans Health AdministrationComment on above:Performed By: #### [id number] #### [facility] ([facility]) [address] [place] [address]UYXPIVVWMVM MEAN CORPUSCULAR HEMOGLOBIN CONCENTRATION (G/DL) BY GHMDZMXOQ64.9 g/dLLow32.0-35.0UnVeterans Health AdministrationComment on above:Performed By: #### [id number] #### [facility] ([facility]) [address] [place] [address]Zryghcofry (Bld) [Volume fraction]25.6 %Low39.0-55.0UnVeterans Health AdministrationComment on above:Performed By: #### [id number] #### [facility] ([facility]) [address] [place] [address]Wuuaawsefu (Bld) [Mass/Vol]7.9 g/dLLow13.0-17.0UnVeterans Health AdministrationComment on above:Performed By: #### [id number] #### [facility] ([facility]) [address] [place] [address]NIU (RBC) [Entitic mass]30.9 gfYevotf01.0-33.0UnVeterans Health AdministrationComment on above:Performed By: #### [id number] #### [facility] ([facility]) [address] [place] [address]AZW (RBC) [Entitic vol]100.0 kRTfwn40.0-98.0UnVeterans Health AdministrationComment on above:Performed By: #### [id number] #### [facility] ([facility]) [address] [address]WDQUKNNAW (10*3/UL) IN BLOOD AUTOMATED [id number] 10*3/uLNormal 150-400UnVeterans Health AdministrationComment on above:Performed By: #### [id number] #### [facility] ([facility]) [address] [place] [address]XWY (Bld) [#/Vol]2.56 10*6/uLLow4.20-5.70UnVeterans Health AdministrationComment on above:Performed By: #### [id number] #### [facility] ([facility]) [address] [place] [address]LQW (Bld) [#/Vol]8.31 10*3/uLNormal4.00-10.60UnVeterans Health AdministrationComment on above:Performed By: #### [id number] #### [facility] ([facility]) [address] [place] [address]JEHHADXADXHBF METABOLIC PANELon 40-00-6009Cmwzvmc [Mass/Vol]2.8 g/dLLow3.5-5.7UnVeterans Health AdministrationComment on above:Performed By: #### [id number] #### [facility] ([facility]) [address] [place] [address]TQB [Catalytic activity/Vol]112 U/FHmof40-904JwebalnzaoVeterans Health AdministrationComment on above:Performed By: #### [id number] #### [facility] ([facility]) [address] [place], [place] [address]RFK [Catalytic activity/Vol]16 U/LNormal7-52UnVeterans Health AdministrationComment on above:Performed By: #### [id number] #### [facility] ([facility]) [address] [place], [place] [address]Ltrju gap [Moles/Vol]8 mmol/LNormal7-20UnVeterans Health AdministrationComment on above:Performed By: #### [id number] #### [facility] ([facility]) [address] [place], [place] [address]KOW [Catalytic activity/Vol]12 U/URzy70-40OowxiygqysVeterans Health AdministrationComment on above:Performed By: #### [id number] #### [facility] ([facility]) [address] [place], [place] [address]Vodcpfzyj [Mass/Vol]0.3 mg/dLNormal0.3-1.0UnVeterans Health AdministrationComment on above:Performed By: #### [id number] #### [facility] ([facility]) [address] [place], [place] [address]Zrgpqpp [Mass/Vol]8.6 mg/dLNormal8.6-10.3UnVeterans Health AdministrationComment on above:Performed By: #### [id number] #### [facility] ([facility]) [address] [place], [place] [address]Icdpmhrx [Moles/Vol]100 mmol/FDghuli56-165TnvcfsauoaVeterans Health AdministrationComment on above:Performed By: #### [id number] #### [facility] ([facility]) [address] [place], [place] [address]DD1 [Moles/Vol]29 mmol/SUcqguy81-85FzokyyjtvpVeterans Health AdministrationComment on above:Performed By: #### [id number] #### [facility] ([facility]) [address] [place], [place] [address]Kxkfudwcsz [Mass/Vol]0.78 mg/dLNormal0.70-1.30UnVeterans Health AdministrationComment on above:Performed By: #### [id number] #### [facility] ([facility]) [address] [place] [address]GBTLGGJZUP FILTRATION RATE ML/MIN/1.73 SQ M.BYESGFYDL65.5 mL/min/1.73m*2Normal>60.0UnVeterans Health AdministrationComment on above: Result Comment: [facility]???s estimated glomerular filtration rate (eGFR) will no [...] group of individuals.Performed By: #### [id number] #### [facility] ([facility]) [address] [place] [address]Jqhrtbn [Mass/Vol]107 mg/tCCnod83-027IsdgrroqiyVeterans Health AdministrationComment on above:Performed By: #### [id number] #### [facility] ([facility]) [address] [place] [address]Krubqsxou [Moles/Vol]3.9 mmol/LNormal3.5-5.1UnVeterans Health AdministrationComment on above:Performed By: #### [id number] #### [facility] ([facility]) [address] [place] [address]Otuujkn [Mass/Vol]6.0 g/dLNormal6.0-8.3UnVeterans Health AdministrationComment on above:Performed By: #### [id number] #### [facility] ([facility]) [address] [place] [address]Ctbnfr [Moles/Vol]133 mmol/UQfi892-728XlwelfbxskVeterans Health AdministrationComment on above:Performed By: #### [id number] #### [facility] ([facility]) [address] [place], [place] [address]Jvts nitrogen [Mass/Vol]37 mg/dLHigh7-25UnVeterans Health AdministrationComment on above:Performed By: #### [id number] #### [facility] ([facility]) [address] [place], [place] [address]CNVZ NITROGEN/CREATININE (MASS RATIO) IN SER/PLAS47.4Normal [facility] HospitalComment on above:Performed By: #### [id number] #### [facility] ([facility]) [address] [place], [place] [address]KIPKT METABOLIC PANELon 19-40-4962Sdfse gap [Moles/Vol]11 mmol/L Normal7-20UnVeterans Health AdministrationComment on above:Performed By: #### [id number] #### [facility] ([facility]) [address] [place], [place] [address]Hxgrlal [Mass/Vol]8.7 mg/dLNormal8.6-10.3UnVeterans Health AdministrationComment on above:Performed By: #### [id number] #### [facility] ([facility]) [address] [place], [place] [address]Gxhwsuci [Moles/Vol]102 mmol/VUzhknf20-294GqjhlnmfvhVeterans Health AdministrationComment on above:Performed By: #### [id number] #### [facility] ([facility]) [address] [place], [place] [address]DX3 [Moles/Vol]25 mmol/UZgifsc45-66NgqzdermkkVeterans Health AdministrationComment on above:Performed By: #### [id number] #### [facility] ([facility]) [address] [place], [place] [address]Kybnpeemqs [Mass/Vol]0.82 mg/dLNormal0.70-1.30UnVeterans Health AdministrationComment on above:Performed By: #### [id number] #### [facility] ([facility]) [address] [place] [address]UTOIVFEQHH FILTRATION RATE ML/MIN/1.73 SQ M.RQNXAABUH69.2 mL/min/1.73m*2Normal>60.0UnVeterans Health AdministrationComment on above: Result Comment: [facility]???s estimated glomerular filtration rate (eGFR) will no [...] affect anyone group of individuals.Performed By: #### [id number] #### [facility] ([facility]) [address] [place] [address]Kjdfext [Mass/Vol]55 mg/sEVhg27-109TyplicrhkwVeterans Health AdministrationComment on above:Performed By: #### [id number] #### [facility] ([facility]) [address] [place] [address]Gawtumdgn [Moles/Vol]3.8 mmol/LNormal3.5-5.1UnVeterans Health AdministrationComment on above:Performed By: #### [id number] #### [facility] ([facility]) [address] [place] [address]Dvayxy [Moles/Vol]134 mmol/YIej889-622PhpocnlxzeVeterans Health AdministrationComment on above:Performed By: #### [id number] #### [facility] ([facility]) [address] [place] [address]Wlav nitrogen [Mass/Vol]41 mg/dLHigh7-25UnVeterans Health AdministrationComment on above:Performed By: #### [id number] #### [facility] ([facility]) [address] [place] [address]FAUL NITROGEN/CREATININE (MASS RATIO) IN SER/PLAS50.0Normal [facility] HospitalComment on above:Performed By: #### [id number] #### [facility] ([facility]) [address] [place] [address]RGCcn 66-17-6320Mqgrlrhpkvt distribution width (RBC) [Ratio]15.8 %High11.5-15.0UnVeterans Health AdministrationComment on above:Performed By: #### [id number] #### [facility] ([facility]) [address] [place] [address]GKBYMKDFDNO MEAN CORPUSCULAR HEMOGLOBIN CONCENTRATION (G/DL) BY ZBPOPEIUJ56.4 g/dLLow32.0-35.0UnVeterans Health AdministrationComment on above:Performed By: #### [id number] #### [facility] ([facility]) [address] [place] [address]Qxunzgisyq (Bld) [Volume fraction]29.3 %Low39.0-55.0UnVeterans Health AdministrationComment on above:Performed By: #### [id number] #### [facility] ([facility]) [address] [place] [address]Khomdjmcod (Bld) [Mass/Vol]8.9 g/dLLow13.0-17.0UnVeterans Health AdministrationComment on above:Performed By: #### [id number] #### [facility] ([facility]) [address] [place] [address]TQW (RBC) [Entitic mass]30.7 fkVnzqhm51.0-33.0UnVeterans Health AdministrationComment on above:Performed By: #### [id number] #### [facility] ([facility]) [address] [place] [address]LNV (RBC) [Entitic vol]101.0 yMAeew53.0-98.0UnVeterans Health AdministrationComment on above:Performed By: #### [id number] #### [facility] ([facility]) [address] [place] [address]CGARWSPQM (10*3/UL) IN BLOOD AUTOMATED CPONH325 10*3/uLNormal 150-400UnVeterans Health AdministrationComment on above:Performed By: #### [id number] #### [facility] ([facility]) [address] [place] [address]XNC (Bld) [#/Vol]2.90 10*6/uLLow4.20-5.70UnVeterans Health AdministrationComment on above:Performed By: #### [id number] #### [facility] ([facility]) [address] [place] [address]IHR (Bld) [#/Vol]11.69 10*3/uLHigh4.00-10.60UnVeterans Health AdministrationComment on above:Performed By: #### [id number] #### [facility] ([facility]) [address] [place] [address]ZMCXACBNOpw 13-61-5565Gjadcntgc [Mass/Vol]2.0 mg/dLNormal1.9-2.[address] [facility] HospitalComment on above:Performed By: #### [id number] #### [facility] ([facility]) [address] [place] [address]NJMMPUBNMSsz 84-78-5864Zhldssash [Mass/Vol]2.1 mg/dLLow2.5-5.[address] [facility] HospitalComment on above:Performed By: #### [id number] #### [facility] ([facility]) [address] [place] [address]ZMKMR METABOLIC PANELon 44-94-7759Yplko gap [Moles/Vol]10 mmol/L Normal7-20UnVeterans Health AdministrationComment on above:Performed By: #### [id number] #### [facility] ([facility]) [address] [place] [address]Embsalf [Mass/Vol]8.3 mg/dLLow8.6-10.3UnVeterans Health AdministrationComment on above:Performed By: #### [id number] #### [facility] ([facility]) [address] [place] [address]Kmnhvbah [Moles/Vol]100 mmol/LFbuxrd54-648LobouynjmsVeterans Health AdministrationComment on above:Performed By: #### [id number] #### [facility] ([facility]) [address] [place] [address]RY9 [Moles/Vol]26 mmol/GIwikul33-17VgverkqkgaVeterans Health AdministrationComment on above:Performed By: #### [id number] #### [facility] ([facility]) [address] [place] [address]Yeqquqtltt [Mass/Vol]0.64 mg/dLLow0.70-1.30UnVeterans Health AdministrationComment on above:Performed By: #### [id number] #### [facility] ([facility]) [address] [place] [address]RIYDBRUWSB FILTRATION RATE ML/MIN/1.73 SQ M.TAMQXRDXC91.9 mL/min/1.73m*2Normal>60.0UnVeterans Health AdministrationComment on above: Result Comment: [facility]???s estimated glomerular filtration rate (eGFR) will no [...] group of individuals.Performed By: #### [id number] #### [facility] ([facility]) [address] [place] [address]Gxjgewi [Mass/Vol]117 mg/xYCcjl06-216BahmjvrmhnVeterans Health AdministrationComment on above:Performed By: #### [id number] #### [facility] ([facility]) [address] [place] [address]Lzikkcogb [Moles/Vol]3.9 mmol/LNormal3.5-5.1UnVeterans Health AdministrationComment on above:Performed By: #### [id number] #### [facility] ([facility]) [address] [place] [address]Vamhlb [Moles/Vol]132 mmol/WYwv098-229CypdsmgiaqVeterans Health AdministrationComment on above:Performed By: #### [id number] #### [facility] ([facility]) [address] [place] [address]Oepb nitrogen [Mass/Vol]30 mg/dLHigh7-25UnVeterans Health AdministrationComment on above:Performed By: #### [id number] #### [facility] ([facility]) [address] [place] [address]WQNW NITROGEN/CREATININE (MASS RATIO) IN SER/PLAS46.9Normal [facility] HospitalComment on above:Performed By: #### [id number] #### [facility] ([facility]) [address] [place] [address]JSKvb 91-67-8722Ldmchaiobpy distribution width (RBC) [Ratio]16.1 %High11.5-15.0UnVeterans Health AdministrationComment on above:Performed By: #### [id number] #### [facility] ([facility]) [address] [place] [address]YQUBBZTEGMH MEAN CORPUSCULAR HEMOGLOBIN CONCENTRATION (G/DL) BY TBRWDNVNW10.0 g/dLLow32.0-35.0UnVeterans Health AdministrationComment on above:Performed By: #### [id number] #### [facility] ([facility]) [address] [place] [address]Ouhlgxbfxv (Bld) [Volume fraction]25.5 %Low39.0-55.0UnVeterans Health AdministrationComment on above:Performed By: #### [id number] #### [facility] ([facility]) [address] [place] [address]Womxhschnl (Bld) [Mass/Vol]7.9 g/dLLow13.0-17.0UnVeterans Health AdministrationComment on above:Performed By: #### [id number] #### [facility] ([facility]) [address] [place] [address]CZM (RBC) [Entitic mass]31.1 kgLptzye84.0-33.0UnVeterans Health AdministrationComment on above:Performed By: #### [id number] #### [facility] ([facility]) [address] [place] [address]RWX (RBC) [Entitic vol]100.4 oTGzeq46.0-98.0UnVeterans Health AdministrationComment on above:Performed By: #### [id number] #### [facility] ([facility]) [address] [place] [address]JIYIHUHBC (10*3/UL) IN BLOOD AUTOMATED [id number] 10*3/uLNormal 150-400UnVeterans Health AdministrationComment on above:Performed By: #### [id number] #### [facility] ([facility]) [address] [place] [address]QKB (Bld) [#/Vol]2.54 10*6/uLLow4.20-5.70UnVeterans Health AdministrationComment on above:Performed By: #### [id number] #### [facility] ([facility]) [address] [place] [address]WUM (Bld) [#/Vol]10.82 10*3/uLHigh4.00-10.60UnVeterans Health AdministrationComment on above:Performed By: #### [id number] #### [facility] ([facility]) [address] [place] [address]EFGXEK CULTUREon 63-94-9639WJDA STAIN RESULTNormalUniversCleveland Clinic Avon HospitalComment on above:Order Comment: Moderate Growth Colonies Consistent with Upper Respiratory FloraResult Comment: 10-25 Epithelial cells per low power field >25 Polys Per Low Power Field Moderate Gram positive cocci in clusters Few Gram positive cocci in chainsPerformed By: #### [id number] #### [facility] ([facility]) [address] [place] [address]MDKFH METABOLIC PANELon 14-78-7505Spvdm gap [Moles/Vol]11 mmol/L Normal7-20UnVeterans Health AdministrationComment on above:Performed By: #### [id number] #### [facility] ([facility]) [address] [place] [address]Umjmbnu [Mass/Vol]8.7 mg/dLNormal8.6-10.3UnVeterans Health AdministrationComment on above:Performed By: #### [id number] #### [facility] ([facility]) [address], [place] [address]Ljkkqrei [Moles/Vol]100 mmol/HUzvhus98-969WcbzyoruxiVeterans Health AdministrationComment on above:Performed By: #### [id number] #### [facility] ([facility]) [address], [place] [address]YI0 [Moles/Vol]28 mmol/RIrwsnd45-69XswukaoqyfVeterans Health AdministrationComment on above:Performed By: #### [id number] #### [facility] ([facility]) [address], [place] [address]Bwbhbvgwpi [Mass/Vol]0.65 mg/dLLow0.70-1.30UnVeterans Health AdministrationComment on above:Performed By: #### [id number] #### [facility] ([facility]) [address], [place] [address]IITXXROBNB FILTRATION RATE ML/MIN/1.73 SQ M.RVQNVDPIQ62.5 mL/min/1.73m*2Normal>60.0UnVeterans Health AdministrationComment on above: Result Comment: [facility]???s estimated glomerular filtration rate (eGFR) will no [...] group of individuals.Performed By: #### [id number] #### [facility] ([facility]) [address] [place] [address]Vchgige [Mass/Vol]120 mg/zDZkox38-348KxqxdruyrnVeterans Health AdministrationComment on above:Performed By: #### [id number] #### [facility] ([facility]) [address] [place] [address]Kgubdsull [Moles/Vol]4.6 mmol/LNormal3.5-5.1UnVeterans Health AdministrationComment on above:Performed By: #### [id number] #### [facility] ([facility]) [address] [place] [address]Fcyazf [Moles/Vol]134 mmol/XNly994-832UzmznkrprxVeterans Health AdministrationComment on above:Performed By: #### [id number] #### [facility] ([facility]) [address] [place] [address]Ypud nitrogen [Mass/Vol]28 mg/dLHigh7-25UnVeterans Health AdministrationComment on above:Performed By: #### [id number] #### [facility] ([facility]) [address] [place] [address]ENNC NITROGEN/CREATININE (MASS RATIO) IN SER/PLAS43.1Normal [facility] HospitalComment on above:Performed By: #### [id number] #### [facility] ([facility]) [address] [place] [address]BXGce 63-73-9619Ayqnfrpapat distribution width (RBC) [Ratio]16.3 %High11.5-15.0UnVeterans Health AdministrationComment on above:Performed By: #### [id number] #### [facility] ([facility]) [address] [place] [address]HBGLFSTDPRV MEAN CORPUSCULAR HEMOGLOBIN CONCENTRATION (G/DL) BY KFLSSBHOX21.9 g/dLLow32.0-35.0UnVeterans Health AdministrationComment on above:Performed By: #### [id number] #### [facility] ([facility]) [address] [place] [place] [address]Hopveeosoe (Bld) [Volume fraction]27.8 %Low39.0-55.0UnVeterans Health AdministrationComment on above:Performed By: #### [id number] #### [facility] ([facility]) [address] [place] [address]Vwycavbawe (Bld) [Mass/Vol]8.6 g/dLLow13.0-17.0UnVeterans Health AdministrationComment on above:Performed By: #### [id number] #### [facility] ([facility]) [address] [place] [address]RJZ (RBC) [Entitic mass]30.2 iaCxbwqi99.0-33.0UnVeterans Health AdministrationComment on above:Performed By: #### [id number] #### [facility] ([facility]) [address] [place], [place] [address]KXZ (RBC) [Entitic vol]97.5 iVKfjbnr24.0-98.0UnVeterans Health AdministrationComment on above:Performed By: #### [id number] #### [facility] ([facility]) [address] [place], [place] [address]XRGRUPYCD (10*3/UL) IN BLOOD AUTOMATED ANERZ938 10*3/uLNormal 150-400UnVeterans Health AdministrationComment on above:Performed By: #### [id number] #### [facility] ([facility]) [address] [place], [place] [address]TZT (Bld) [#/Vol]2.85 10*6/uLLow4.20-5.70UnVeterans Health AdministrationComment on above:Performed By: #### [id number] #### [facility] ([facility]) [address] [place] [address]XMZ (Bld) [#/Vol]10.51 10*3/uLNormal4.00-10.60UnVeterans Health AdministrationComment on above:Performed By: #### [id number] #### [facility] ([facility] [address] [place], [place] [address]DA GUIDED PLEURA CATH INSERT (OPAL)on 79-48-5422WW GUIDED PLEURA CATH INSERT (OPAL)NormalThe [facility] SystemXA THORACENTESIS W/ IMAGE GUIDE (OPAL)on 36-01-5990NY THORACENTESIS W/ IMAGE GUIDE (OPAL)NormalThe [facility] SystemCBC WITH AUTO DIFFERENTIALon 07-28-8688Juljiylmk (Bld) [#/Vol]0.04 10*3/uL Normal0.00-0.20UnVeterans Health AdministrationComment on above:Performed By: #### [id number] #### [facility] ([facility]) [address] [place], [place] [address]Okycmmlwl/100 WBC (Bld)0.4 %Normal0.0-1.0UnVeterans Health AdministrationComment on above:Performed By: #### [id number] #### [facility] ([facility]) [address] [place] [address]Liujnuyyida (Bld) [#/Vol]0.52 10*3/uLHigh0.00-0.50UnVeterans Health AdministrationComment on above:Performed By: #### [id number] #### [facility] ([facility]) [address] [place], [place] [address]Zcxppqmuhkg/100 WBC (Bld)4.9 %Normal0.0-6.0UnVeterans Health AdministrationComment on above:Performed By: #### [id number] #### [facility] ([facility]) [address] [place], [place] [address]Bjymqnwxrkn distribution width (RBC) [Ratio]16.7 %High11.5-15.[address] [facility] HospitalComment on above:Performed By: #### [id number] #### [facility] ([facility]) [address] [place], [place] [address]IPTXQAJNXKH MEAN CORPUSCULAR HEMOGLOBIN CONCENTRATION (G/DL) BY PDVHVPAKX44.5 g/dLLow32.0-35.0UnVeterans Health AdministrationComment on above:Performed By: #### [id number] #### [facility] ([facility]) [address] [place] [address]Mhynhbphqr (Bld) [Volume fraction]32.4 %Low39.0-55.0UnVeterans Health AdministrationComment on above:Performed By: #### [id number] #### [facility] ([facility]) [address] [place] [address]Ubneinznct (Bld) [Mass/Vol]10.2 g/dLLow13.0-17.0UnVeterans Health AdministrationComment on above:Performed By: #### [id number] #### [facility] ([facility]) [address] [place] [address]Woouvgya granulocytes (Bld) [#/Vol]0.28 10*3/uLHigh0.00-0.[address] [facility] HospitalComment on above:Performed By: #### [id number] #### [facility] ([facility]) [address] [place] [address]Vketwujs granulocytes/100 WBC (Bld)2.6 %High0.0-1.0UnVeterans Health AdministrationComment on above:Performed By: #### [id number] #### [facility] ([facility]) [address] [place] [address]Eufsjvxsjph (Bld) [#/Vol]1.09 10*3/uLLow1.20-4.00UnVeterans Health AdministrationComment on above:Performed By: #### [id number] #### [facility] ([facility]) [address] [place] [address]Yxfmuhfvqjp/100 WBC (Bld)10.3 %Low20.0-45.0UnVeterans Health AdministrationComment on above:Performed By: #### [id number] #### [facility] ([facility]) [address] [place] [address]QXQ (RBC) [Entitic mass]30.7 cgGfivbr61.0-33.0UnVeterans Health AdministrationComment on above:Performed By: #### [id number] #### [facility] ([facility]) [address] [place] [address]ECX (RBC) [Entitic vol]97.6 pKUfbnvo21.0-98.0UnVeterans Health AdministrationComment on above:Performed By: #### [id number] #### [facility] ([facility]) [address] [place] [address]Jbsxrduwp (Bld) [#/Vol]0.80 10*3/uLNormal0.10-1.00UnVeterans Health AdministrationComment on above:Performed By: #### [id number] #### [facility] ([facility]) [address] [place] [address]Favleqkcp/100 WBC (Bld)7.5 %Normal5.0-12.0UnVeterans Health AdministrationComment on above:Performed By: #### [id number] #### [facility] ([facility]) [address] [place] [address]Tkidoaydruv (Bld) [#/Vol]7.88 10*3/uLHigh1.60-7.60UnVeterans Health AdministrationComment on above:Performed By: #### [id number] #### [facility] ([facility]) [address] [place] [address]Jourpjhtwum/100 WBC (Bld)74.3 %High40.0-72.0UnVeterans Health AdministrationComment on above:Performed By: #### [id number] #### [facility] ([facility]) [address] [place] [address]JDME (PER 100 WBCS) BY AUTOMATED COUNT0.0 %Dufgtl3HvybdvliufVeterans Health AdministrationComment on above:Performed By: #### [id number] #### [facility] ([facility]) [address] [place] [address]TKYYJTRRO (10*3/UL) IN BLOOD AUTOMATED MEDJW149 10*3/uLNormal 150-400UnVeterans Health AdministrationComment on above:Performed By: #### [id number] #### [facility] ([facility]) [address] [place] [address]OBD (Bld) [#/Vol]3.32 10*6/uLLow4.20-5.70UnVeterans Health AdministrationComment on above:Performed By: #### [id number] #### [facility] ([facility]) [address] [place] [address]UXS (Bld) [#/Vol]10.61 10*3/uLHigh4.00-10.60UnVeterans Health AdministrationComment on above:Performed By: #### [id number] #### [facility] ([facility]) [address] [place] [address]BUATPARTVZOWB METABOLIC PANELon 02-25-5896Hxcqytc [Mass/Vol]2.9 g/dLLow3.5-5.7UnVeterans Health AdministrationComment on above:Performed By: #### [id number] #### [facility] ([facility]) [address] [place] [address]ZYI [Catalytic activity/Vol]150 U/LVjfh11-364MzvgnyeiydVeterans Health AdministrationComment on above:Performed By: #### [id number] #### [facility] ([facility]) [address] [place] [address]GAF [Catalytic activity/Vol]17 U/LNormal7-52UnVeterans Health AdministrationComment on above:Performed By: #### [id number] #### [facility] ([facility]) [address] [place], [place] [address]Qtxtu gap [Moles/Vol]8 mmol/LNormal7-20UnVeterans Health AdministrationComment on above:Performed By: #### [id number] #### [facility] ([facility]) [address] [place], [place] [address]GAE [Catalytic activity/Vol]19 U/FJftrgh53-40ThyllvqfjlVeterans Health AdministrationComment on above:Performed By: #### [id number] #### [facility] ([facility]) [address] [place] [address]Yifxcdaxz [Mass/Vol]0.5 mg/dLNormal0.3-1.0UnVeterans Health AdministrationComment on above:Performed By: #### [id number] #### [facility] ([facility]) [address] [place] [address]Rbntdmp [Mass/Vol]8.3 mg/dLLow8.6-10.3UnVeterans Health AdministrationComment on above:Performed By: #### [id number] #### [facility] ([facility]) [address] [place], [place] [address]Qladdwut [Moles/Vol]100 mmol/GNosfjn26-806VeixmwhlnyVeterans Health AdministrationComment on above:Performed By: #### [id number] #### [facility] ([facility]) [address] [place], [place] [address]IS8 [Moles/Vol]30 mmol/HVxkfhr64-39MvfnopxwljVeterans Health AdministrationComment on above:Performed By: #### [id number] #### [facility] ([facility]) [address] [place], [place] [address]Tufkblabtl [Mass/Vol]0.78 mg/dLNormal0.70-1.30UnVeterans Health AdministrationComment on above:Performed By: #### [id number] #### [facility] ([facility]) [address] [place], [place] [address]XIIDGTZIOA FILTRATION RATE ML/MIN/1.73 SQ M.OICZFQMCS29.5 mL/min/1.73m*2Normal>60.0UnVeterans Health AdministrationComment on above: Result Comment: The [facility]???s estimated glomerular filtration rate (eGFR) will no [...] group of individuals.Performed By: #### [id number] #### [facility] ([facility]) [address] [place] [address]Xckwthk [Mass/Vol]109 mg/vCRpce24-925HphemcczqzVeterans Health AdministrationComment on above:Performed By: #### [id number] #### [facility] ([facility]) [address] [place], [place] [address]Brsersxns [Moles/Vol]3.7 mmol/LNormal3.5-5.1UnVeterans Health AdministrationComment on above:Performed By: #### [id number] #### [facility] ([facility]) [address] [place], [place] [address]Gjxaltk [Mass/Vol]5.5 g/dLLow6.0-8.3UnVeterans Health AdministrationComment on above:Performed By: #### [id number] #### [facility] ([facility]) [address] [place], [place] [address]Hozhdz [Moles/Vol]134 mmol/UZra277-449FirlehsfzxVeterans Health AdministrationComment on above:Performed By: #### [id number] #### [facility] ([facility]) [address] [place], [place] [address]Oufe nitrogen [Mass/Vol]29 mg/dLHigh7-25UnVeterans Health AdministrationComment on above:Performed By: #### [id number] #### [facility] ([facility]) [address] [place], [place] [address]RUXT NITROGEN/CREATININE (MASS RATIO) IN SER/PLAS37.2Normal [facility] HospitalComment on above:Performed By: #### [id number] #### [facility] ([facility]) [address] [place], [place] [address]CRTIIQIIAdv 30-37-9360Zmzhfuvqg [Mass/Vol]2.0 mg/dLNormal1.9-2.[address] [facility] HospitalComment on above:Performed By: #### [id number] #### [facility] ([facility]) [address] [place], [place] [address]OGGWNMDXLZde 26-15-0108Uhnucoklo [Mass/Vol]2.7 mg/dLNormal 2.5-5.0UnVeterans Health AdministrationComment on above:Performed By: #### [id number] #### [facility] ([facility]) [address] [place], [place] [address]OUBM FXA-LMW HEPARINon 94-15-8426PUWX FXA-LMW HEPARIN ASSAY0.26 IU/mLNormalThe St. Luke'S HospitalroHealth SystemComment on above:Order Comment: The recommended therapeutic range for treatment of thrombosis with Low Molecular Weight Heparin is 0.5 - 1.0 IU/mLThe recommended range for VTE prophylaxis with Low Molecular Weight Heparin is 0.2 - 0.4 IU/mL.Performed By: #### ANGELINA ####S PATHOLOGY HTOPUWIGVY[address] [place] [address], [address]DLGQT METABOLIC PANELon 69-85-1361Fgozv gap [Moles/Vol]12 mmol/WOfaihs80-70Olm [facility] Comment on above:Performed By: #### MG MIRELES CH8 ####[facility] YDNQRYSDVI[address] [place] [address], [address]Lsswuky [Mass/Vol]8.4 mg/dLLow8.6-10.3The [facility] Luke'S HospitalroHealth SystemComment on above:Performed By: #### MG CHI CH8 ####[facility] LZJOQIYEOE7[address] [place], [place], [address]Chloride [Moles/Vol]97 mmol/UGuk71-406Mox St[facility]S HospitalroHealth SystemComment on above:Performed By: #### MG MIRELES CH8 ####[facility] HUDHJLBNCR24[address] [place], [address]CU0 [Moles/Vol]29 mmol/WLxgmez63-66Pbr [facility] HospitalroHealth SystemComment on above:Performed By: #### MG CHI CH8 ####[facility] VHLSTJRMDE[address] [place] [address], [address]Ooiyqiufxg [Mass/Vol]0.58 mg/dLLow0.70-1.30The [facility] SystemComment on above:Performed By: #### MG MIRELES CH8 ####[facility] PATH[facility] MFPAPAFPSP[address] [place], [address]SDSAYSXJO GFR (CKD-EPI)97 mL/min/1.73sqmNormal>=60 The [facility] SystemComment on above:Result Comment: 2020 CKD EPI [...] Inclusion of Race in Diagnosing Kidney Disease. [place] Journal of Kidney Diseases 2021;79(2):26 8-88.e1.2. N Engl J Med 1 Vol. 385 Issue 19 Pages 6554-2925Performed By: #### MG MIRELES CH8 ####[facility] IACJMQZKQG[address] [place], [address]Wijdlzc [Mass/Vol]104 mg/dMDvhxrm32-194Hjr [facility] SystemComment on above:Performed By: #### MG MIRELES CH8 ####[facility] FHNFSYUWMA9955 [place], [address]Rtrvcspct [Moles/Vol]4.1 mmol/LNormal 3.5-5.0The [facility] SystemComment on above:Performed By: #### MG MIRELES CH8 ####[facility] OZKNSDYPVK89[address] [place], Sodium [Moles/Vol]134 mmol/NKrz470-124Nxw [facility] SystemComment on above: Performed By: #### MG CHI, CH8 ####[facility] YFQBELIQEU5785 [place], [address]Diob nitrogen [Mass/Vol]22 mg/dLNormal7-25The [facility] SystemComment on above:Performed By: #### PHOS, MG, CH8 ####[facility] PATHOLOGY SVYZPKJZOJ[address] [place] [address], [address]PQYWNXOB BLOOD COUNTon 36-35-6929Ynppsjaqtcw distribution width (RBC) [Ratio]16.9 %High 11.5-14.5The [facility] SystemComment on above:Performed By: #### CBC ####[facility] PATHOLOGY JNQGSQTGWV[address] [place] [address], [address]Bblepwacai (Bld) [Volume fraction]33.8 %Low41.0-53.0The [facility] ([facility]ulmboldtHealth SystemComment on above: Performed By: #### CBC ####[facility] PATHOLOGY TMLFFWCRPW[address] [place] [address], [address]Etttnrhkju (Bld) [Mass/Vol]11.4 g/dLLow13.9-16.3 The [facility] SystemComment on above:Performed By: #### CBC ####[facility] PATHOLOGY VKLZIBPBMP[address] [place] [address], [address]CYZ (RBC) [Entitic mass]31.5 jlGqvjrk59.0-34.0The [facility] ([facility]oldtHealth SystemComment on above:Performed By: #### CBC ####[facility] PATHOLOGY MCUZTZURIF[address] [place] [address], [address]HPTN (RBC) [Mass/Vol]33.8 g/wUBthngv88.0-35.9The [facility] ([facility] Comment on above:Performed By: #### CBC ####[facility] PATHOLOGY OIXDABKUGB[address] [place] [address], [address]WOW (RBC) [Entitic vol]93 fLNormal 80-100The [facility] SystemComment on above:Performed By: #### CBC ####[facility] PATHOLOGY NRAXIYVUJH[address] [place] [address], [address]Mruvkrtt mean volume (Bld) [Entitic vol]7.2 fLLow7.5-11.2The [facility] SystemComment on above:Performed By: #### CBC ####[facility] PATHOLOGY CNOUVXDEPJ[address] [place] [address], [address]Arcvzejgl (Bld) [#/Vol]354 10*3/uMNkwwla534-955Jae [facility] SystemComment on above:Performed By: #### CBC ####S PATHOLOGY UTVHULIRTZ[address] [place] [address], [address]OHT (Bld) [#/Vol]3.62 10*6/uLLow4.50-5.90The [facility] SystemComment on above:Performed By: #### CBC ####S PATHOLOGY CRFEEPYNYS[address] [place] [address], [address]BZS (Bld) [#/Vol]9.4 10*3/uLNormal4.5-11.5The [facility] SystemComment on above: Performed By: #### CBC ####S PATHOLOGY TGTIYZZSGR[address] [place] [address], [address]Mdftmqzipm 81-38-7276Zddpcfzceuqqw Authentication Interface Message TextNormCumberland HospitalroHealth SystemDischarge Planning Noteon 02-69-2130Gtyoudtexprow Authentication Interface Message TextNormCumberland HospitalroHealth SystemMAGNESIUMon 06-18-9273Dlpadbmqy [Mass/Vol]2.0 mg/dLNormal 1.9-2.7The [facility] HospitalroHealth SystemComment on above:Performed By: #### PHOS, MG, CH8 ####[facility] UEPVTWYNMM[address] [place] [address], PHOSPHORUSon 72-28-4925Icfrvhgwf [Mass/Vol]2.4 mg/dLLow2.5-5.0The [facility] HospitalroHealth SystemComment on above:Performed By: #### PHOS, MG, CH8 ####S PATHOLOGY PUYMDLZGMG[address] [place] [address], [address]Hleafodq Noteson 11-63-1380Yeywytkyfphim Authentication Interface Message TextNormCumberland HospitalroHealth SystemTranscription Authentication Interface Message TextNormElyria Memorial Hospitale St. Luke'S HospitalroHealth SystemTranscription Authentication Interface Message TextNormalThe [facility] SystemXR CHEST AP OR PA 1 VIEWon 51-72-8505NW CHEST AP OR PA 1 VIEW NormalThe [facility] SystemXR CHEST AP OR PA 1 VIEWNormCumberland HospitalroHealth System XR Chest Single viewon 69-42-5685KMLAGUAJORL: XR CHEST AP OR PA 1 VIEW [...] the pleural fissures. MACRO: None Gerber Fox, - 06/10/2024 EXAMINATION: XR CHEST AP OR [...] pleural fissures. MACRO: None [facility]HealthRadiology Study observation (narrative)MetMercy Health Perrysburg HospitalXR Chest Single viewOrdered By: Gerber Mcdaniel on 08-24-1569KtihcDztyof Work Phone: bASIC METABOLIC PANELon 94-21-3446Vtgwe gap [Moles/Vol]13 mmol/PLsnuwj90-70Ewr [facility] SystemComment on above:Performed By: #### AMMON MG PHOS ####[facility] RAPXLUSRCY5865 [place], [address]Tdofzqc [Mass/Vol]8.2 mg/dLLow8.6-10.3The [facility] HospitalroHealth SystemComment on above:Performed By: #### AMMON MG, PHOS ####[facility] DBBEWKAYXU4591 [place], [address]Nthnplsh [Moles/Vol]95 mmol/OBpu29-272Mfs [facility] SystemComment on above:Performed By: #### CHIvis MG, PHOS ####[facility] GQBAUNVJPV7294 [place], [address]TW4 [Moles/Vol]30 mmol/ZUkicac53-54Szt [facility] HospitalroK[facility] SystemComment on above:Performed By: #### CHIvis MG, PHOS ####[facility] KEMMECHGNS99[address] [place], [address]Sbbldztsyn [Mass/Vol] 0.49 mg/dLLow0.70-1.30The [facility]S HospitalroHealth SystemComment on above:Performed By: ###MG BENAVIDES PHOS ####S PATHOLOGY GISDBFTKMR6993 [place], [address]FUCPJTBSM GFR (CKD-EPI)102 mL/min/1.73sqmNormal>=60The [facility] ([facility]ulmboldtHealth SystemComment on above:Result Comment: 2020 CKD EPI [...] Inclusion of Race in Diagnosing Kidney Disease. [place] Journal of Kidney Diseases 2021;79(2):268-88.e1.2. N Engl J Med 2020 Vol. 385 Issue 19 Pages 9432-2265Performed By: ###MG BENAVIDES PHOS ####S PATHOLOGY PXCQAONCCB3048 [place], [address]Ufutcbm [Mass/Vol]87 mg/yDNvsmgz50-634Lgk [facility] SystemComment on above:Performed By: ###MG BENAVIDES PHOS ####S PATHOLOGY VSYSQXAMDL2533 [place], [address]Rlppjtcmk [Moles/Vol]3.2 mmol/LLow3.5-5.0The [facility] SystemComment on above:Performed By: ##MG GREY PHOS ####S PATHOLOGY EBHBATRKXU8069 [place], [address]Bngxyt [Moles/Vol]135 mmol/AYsc562-004Izt [facility] SystemComment on above:Performed By: ##MG GREY PHOS ####[facility] RLWBLRRUCY8534 [place], [address]Ypsq nitrogen [Mass/Vol]14 mg/dLNormal7-25The [facility] SystemComment on above:Performed By: ###MG BENAVIDES PHOS ####[facility] DGPSSNIOKH8758 [place], [address]BUUUEDHM BLOOD COUNTon 18-61-4811Hrqomkiruwo distribution width (RBC) [Ratio]17.6 %High 11.5-14.5The [facility] SystemComment on above:Performed By: #### CBC ####[facility] PATHOLOGY JKTKJQQXMT[address] [place] [address], [address]Yjeebiuneh (Bld) [Volume fraction]31.4 %Low41.0-53.0The [facility] SystemComment on above: Performed By: #### CBC ####[facility] PATHOLOGY SRLOSTLFDO[address] [place] [address], [address]Lgotjghfre (Bld) [Mass/Vol]10.5 g/dLLow13.9-16.3 The [facility] SystemComment on above:Performed By: #### CBC ####[facility] PATHOLOGY TQTKLPLJYC[address] [place] [address], [address]FDG (RBC) [Entitic mass]31.1 lmPnwocp67.0-34.0The [facility] SystemComment on above:Performed By: #### CBC ####[facility] PATHOLOGY ZQALOHGOPQ[address] [place] [address], [address]CDPU (RBC) [Mass/Vol]33.3 g/gHMxonsp79.0-35.9The [facility] System Comment on above:Performed By: #### CBC ####[facility] PATHOLOGY LUUQOMQPZF[address] [place] [address], [address]LAN (RBC) [Entitic vol]94 fLNormal 80-100[facility] SystemComment on above:Performed By: #### CBC ####[facility] [id number] [place] [address], [phone] mean volume (Bld) [Entitic vol]7.2 fLLow7.5-11.2[facility] SystemComment on above:Performed By: #### CBC ####[facility] [id number] [place] [address], [phone] (Bld) [#/Vol]331 10*3/tFHhgfjj698-009[facility] ([facility] SystemComment on above:Performed By: #### CBC ####S PATHOLOGY TZSEXOTKWZ[address] [place], [phone] (Bld) [#/Vol]3.36 10*6/uLLow4.50-5.90The [facility] SystemComment on above:Performed By: #### CBC ####S PATHOLOGY U[address]IFGWURK[address] [place] [address], [phone] (Bld) [#/Vol]7.2 10*3/uLNormal4.5-11.5[facility] ([facility] SystemComment on above: Performed By: #### CBC ####S PATHOLOGY [address]IECHLKH[address] [place] [address], [phone] [phone] Authentication Interface Message TextNormOhioHealth [facility] SystemMAGNESIUMon 06-09-2024 Magnesium [Mass/Vol]1.6 mg/dLLow1.9-2.7The [facility] SystemComment on above: Performed By: #### CH8, MG, PHOS ####S PATHOLOGY PLBXETOIFB[address] [place] [address], [phone] [phone] [Mass/Vol]3.1 mg/dLNormal2.5-5.0The [facility] SystemComment on above:Performed By: #### CH8, MG, PHOS ####S PATHOLOGY AWOURLVRJB79[address] [place], [place], 45 Progress Noteson [phone] Authentication Interface Message TextNoShelby [facility] Hospital SystemTranscription Authentication Interface Message TextNoCritical access hospitalroKettering [facility] SystemXR CHEST AP OR PA 1 VIEWon [id number] CHEST AP OR PA [address] [facility] SystemXR Chest Single viewon [id number]: XR CHEST AP OR PA 1 VIEW 06/09/2024 06:43 AM CLINICAL HISTORY: follow up exam ASSOCIATED DIAGNOSIS: follow up exam ORDERING PROVIDER: JOSE M TORRES TECHNOLOGISTS NOTE: COMPARISON: XR CHEST AP OR [...] follow up exam ORDERING PROVIDER: JOSE M TORRES TECHNOLOGISTS NOTE: COMPARISON: XR CHEST AP OR [...] pneumothorax visible. MACRO: None [facility] (narrative)[facility] CenterXR Chest Single viewOrdered By: Micah Lynne on 23-55-1029FswzyTpustr Work Phone: bASIC METABOLIC PANELon 98-50-3950Ejmpt gap [Moles/Vol]11 mmol/JZfcpkd66-87Ioq [facility]Mer[facility] SystemComment on above:Performed By: #### CH8, MG, PHOS ####[facility] KXWSFPHFPT4150 [place], [address]Ndfhgzp [Mass/Vol]8.5 mg/dLLow8.6-10.3The [facility] HospitalroHealth SystemComment on above:Performed By: #### MG AMMON PHOS ####[facility] PATHOLOGY UPWGZAXUHB2419 [place], [address]Onbpgtay [Moles/Vol]98 mmol/OGhdgac19-709Ndv [facility] HospitalroHealth SystemComment on above:Performed By: #### MG AMMON, PHOS ####[facility] PATHOLOGY EGOAFKLHYA9756 [place], [address]WF7 [Moles/Vol]31 mmol/HBdhtad60-72Ync [facility] HospitalroHealth SystemComment on above:Performed By: #### MG AMMON, PHOS ####[facility] PATHOLOGY WYMUFLCWDO1707 [place], [address]Vsgjarwveb [Mass/Vol] 0.44 mg/dLLow0.70-1.30The [facility] HospitalroHealth SystemComment on above:Performed By: #### MG AMMON PHOS ####[facility] PATHOLOGY LHRYHBKJEX4069 [place], [address]NVOBLPFIJ GFR (CKD-EPI)105 mL/min/1.73sqmNormal>=60The [facility] SystemComment on above:Result Comment: 2020 CKD EPI [...] Inclusion of Race in Diagnosing Kidney Disease. Nigerian Journal of Kidney Diseases 2021;79(2):268-88.e1.2. N Engl J Med 1 Vol. 385 Issue 19 Pages 1301-0400Performed By: #### MG VERDE PHOS ####[facility] PATHOLOGY COVVKSBHYO9060 [place], [address]Hvsgeje [Mass/Vol]104 mg/rKPswaxd92-529Wzh [facility] SystemComment on above:Performed By: #### MG AMMON, PHOS ####[facility] PATHOLOGY MLPDVNBYCM7836 [place], [address]Lwabflzdp [Moles/Vol]3.2 mmol/LLow3.5-5.0The [facility] ([facility]oldtHealth SystemComment on above:Performed By: #### CH8MG, PHOAlfonzo ####[facility] PATHOLOGY UNJVIPNQKW5226 [place], [address]Jfkpwm [Moles/Vol]137 mmol/JMqdygq038-199Dog [facility] ([facility]oldtHealth SystemComment on above: Performed By: #### CH8, MG, PHOAlfonzo ####[facility] PATHOLOGY OHFEAOMXAI6397 [place], [address]Dmiw nitrogen [Mass/Vol]16 mg/dLNormal7-25The [facility] SystemComment on above:Performed By: #### CH8MG, CHI ####[facility] PATHOLOGY IFMNHKZSJC[address] [place] [address], [address]ADZBPQSH BLOOD COUNTon 14-73-5359Aizcubcadon distribution width (RBC) [Ratio]17.1 %High 11.5-14.5The [facility] SystemComment on above:Performed By: #### CBC ####[facility] PATHOLOGY PYXUTUDZZN[address] [place] [address], [address]Snnwcpefyp (Bld) [Volume fraction]30.1 %Low41.0-53.0The [facility] SystemComment on above: Performed By: #### CBC ####[facility] PATHOLOGY JPAQKPESYZ[address] [place] [address], [address]Zhnxrjbixw (Bld) [Mass/Vol]9.9 g/dLLow13.9-16.3The [facility] SystemComment on above:Performed By: #### CBC ####[facility] PATHOLOGY LVXNCTYRBK[address] [place] [address], [address]LYS (RBC) [Entitic mass]30.6 qoKsqvaj12.0-34.0The [facility] SystemComment on above:Performed By: #### CBC ####[facility] PATHOLOGY UXJCIOQLHJ[address] [place] [address], [address]KFZF (RBC) [Mass/Vol]33.0 g/sTMtzynw21.0-35.9The [facility] System Comment on above:Performed By: #### CBC ####[facility] PATHOLOGY TNMPZKTKCW9[address] [place] [address], [address]OCU (RBC) [Entitic vol]93 fLNormal 80-100The [facility] ([facility]oldtHealth SystemComment on above:Performed By: #### CBC ####[facility] PATHOLOGY ZNMAGKLXII[address] [place] [address], [address]Lolbtsib mean volume (Bld) [Entitic vol]7.0 fLLow7.5-11.2The [facility] ([facility]oldtHealth SystemComment on above:Performed By: #### CBC ####[facility] PATHOLOGY ALSXSIXOPK86350[address] [place] [address], [address]Uqmhzkows (Bld) [#/Vol]370 10*3/bFIwnxox907-009Xiy [facility] ([facility]oldtHealth SystemComment on above:Performed By: #### CBC ####[facility] PATHOLOGY SCQRPGNUVC[address]110[address] [place] [address], [address]RAE (Bld) [#/Vol]3.24 10*6/uLLow4.50-5.90The [facility] HospitalroHealth SystemComment on above:Performed By: #### CBC ####[facility] PATHOLOGY ATXVWUHYEE[address] [place] [address], [address]BLO (Bld) [#/Vol]5.8 10*3/uLNormal4.5-11.5The [facility] ([facility]oldtHealth SystemComment on above: Performed By: #### CBC ####[facility] PATHOLOGY XARLOYOMGW67[address] [place] [address], [address]Pzcytuniow 70-29-0804Jxxuyiugmsmfs Authentication Interface Message TextNormElyria Memorial Hospitale St. [facility] HospitalroHealth SystemTranscription Authentication Interface Message TextNormCumberland HospitalroKettering [facility] SystemMAGNESIUMon 06-08-2024 Magnesium [Mass/Vol]1.9 mg/dLNormal1.9-2.7The [facility] SystemComment on above:Performed By: #### CH8, MG, PHOS ####[facility] PATHOLOGY IKKPCYRLHZ7[address] [place] [address], [address]SLDODZMRERru 61-61-4218Xhtevtygz [Mass/Vol]2.5 mg/dLNormal2.5-5.0The [facility] SystemComment on above:Performed By: #### CH8, CHI PRADO ####[facility] PATH[facility] OTAKOQKWJB2216 [place], [address]Xjyo-Vyrgefkea Noteon 84-01-6782Evreokbzrzdxw Authentication Interface Message TextNormElyria Memorial Hospitale [facility] ([email or web address] SystemPre-Procedure Noteon 82-73-9576Uhtrflmsnvfvd Authentication Interface Message TextNormAddison Gilbert HospitalTheSedge.org SystemProgress Noteson 37-72-4937Gettmtgpfrgvt Authentication Interface Message TextNormOhio[facility] SystemTranscription Authentication Interface Message TextNormElyria Memorial Hospitale St. Luke'S HospitalroTheSedge.org SystemXR CHEST AP OR PA 1 VIEWon 06-69-1490YE CHEST AP OR PA [address] [facility] HospitalroHealth SystemXR CHEST AP OR PA [address] Luke'S HospitalroTheSedge.org SystemXR Chest Single viewon 69-42-7205EPQYPSEIOOQ: XR CHEST AP OR PA 1 VIEW [...] Chest Single viewOrdered By: Micah Lynne on 14-81-0809EkmcmAvjhgr Work Phone: bASIC METABOLIC PANELon 14-60-5831Tkmaw gap [Moles/Vol]14 mmol/AMgsfxc75-23Agy [facility] SystemComment on above:Performed By: #### MG CH8, PHOS ####[facility] PATH[facility] FLOUZISCZG2443 [place], [address]Upzjviq [Mass/Vol]8.1 mg/dLLow8.6-10.3The [facility] SystemComment on above:Performed By: #### MG CH8, PHOS ####[facility] PATH[facility] IQXTIPWJPW3248 [place], [address]Naqznmyh [Moles/Vol]102 mmol/TXowizz76-742Ayc [facility] SystemComment on above: Performed By: #### MG, CH8, PHOS ####[facility] PATHOLOGY UQWPRWQTNF9124 [place], [address]PY1 [Moles/Vol]29 mmol/DNwiezr12-54Yya [facility] ([facility]oldtHealth SystemComment on above:Performed By: #### AMMON PRADO PHOS ####[facility] PATHOLOGY BACRMVSQOF2366 [place], [address]Gfjvjliwuu [Mass/Vol] 0.55 mg/dLLow0.70-1.30The [facility] HospitalroHealth SystemComment on above:Performed By: #### AMMON PRADO PHOS ####[facility] PATHOLOGY MVSWRIQZTH2249 [place], [address]JRDDCVWIE GFR (CKD-EPI)98 mL/min/1.73sqmNormal>=60The [facility] SystemComment on above:Result Comment: 2020 CKD EPI [...] Inclusion of Race in Diagnosing Kidney Disease. Nigerian Journal of Kidney Diseases 202;79(2):268-88.e1.2. N Engl J Med 1 Vol. 385 Issue 19 Pages 1829-1364Performed By: #### AMMON PRADO PHOS ####[facility] PATHOLOGY XRDYLXTTLP1203 [place], [address]Gzqmnaa [Mass/Vol]84 mg/rBDitofo34-700Djh [facility] SystemComment on above:Performed By: #### AMMON PRADO PHOS ####[facility] PATHOLOGY DRTLLMXAXY7656 [place], [address]Ebmjxxrwu [Moles/Vol]3.5 mmol/LNormal3.5-5.0The [facility] SystemComment on above:Performed By: #### AMMON PRADO PHOS ####[facility] PATHOLOGY UMIRZECTYF3554 [place], [address]Gdprkq [Moles/Vol]141 mmol/DWzvdxd598-643Evv [facility] SystemComment on above: Performed By: #### AMMON PRADO PHOS ####S PATHOLOGY AXDBKSTEYQ6838 [place], [address]Qqgq nitrogen [Mass/Vol]13 mg/dLNormal7-25The [facility] ([facility]oldtHealth SystemComment on above:Performed By: #### MGAMMON PHOS ####[facility] PATHOLOGY TSYWVMXYON5372 [place], [address]XEYASDQO BLOOD COUNTon 51-85-7999Wbwodvwpghi distribution width (RBC) [Ratio]17.3 %High 11.5-14.5The [facility] ([facility]oldtHealth SystemComment on above:Performed By: #### CBC ####[facility] PATHOLOGY RKBEDVSBLC[address] [place] [address], [address]Ajwlctmyfx (Bld) [Volume fraction]28.2 %Low41.0-53.0The [facility] SystemComment on above: Performed By: #### CBC ####[facility] PATHOLOGY MASEFEWMUL[address] [place] [address], [address]Zuigtlkxaa (Bld) [Mass/Vol]9.7 g/dLLow13.9-16.3The [facility] SystemComment on above:Performed By: #### CBC ####[facility] PATHOLOGY TDATEGJBJN[address] [place] [address], [address]BDC (RBC) [Entitic mass]32.0 wmVkhfgg46.0-34.0The [facility] SystemComment on above:Performed By: #### CBC ####[facility] PATHOLOGY TOZMRWKBPL[address] [place] [address], [address]DOXF (RBC) [Mass/Vol]34.3 g/zHYqiltn59.0-35.9The [facility] System Comment on above:Performed By: #### CBC ####[facility] PATHOLOGY WKPWZCGVAL[address] [place] [address], [address]LKH (RBC) [Entitic vol]93 fLNormal 80-100The [facility] SystemComment on above:Performed By: #### CBC ####[facility] PATHOLOGY EWZADTQLWQ[address] [place] [address], [address]Vtuhkopn mean volume (Bld) [Entitic vol]7.3 fLLow7.5-11.2The [facility] HospitalroHealth SystemComment on above:Performed By: #### CBC ####[facility] PATHOLOGY YQPVDRQXRP5[address] [place] [address], [address]Uokelsvwe (Bld) [#/Vol]367 10*3/pQGzctul053-584Azy [facility] HospitalroHealth SystemComment on above:Performed By: #### CBC ####[facility] PATHOLOGY CBIIPXTCKA18280[address] [place] [address], [address]YZC (Bld) [#/Vol]3.03 10*6/uLLow4.50-5.90The [facility] HospitalroHealth SystemComment on above:Performed By: #### CBC ####[facility] PATHOLOGY WKBSLBVLER[address] [place] [address], [address]FUQ (Bld) [#/Vol]6.7 10*3/uLNormal4.5-11.5The [facility] HospitalroHealth SystemComment on above: Performed By: #### CBC ####[facility] PATHOLOGY NZMUTQCXZL69020[address] [place] [address], [address]TANOZSKMTza 58-27-1770Nnvpbkliv [Mass/Vol]2.1 mg/dLNormal1.9-2.7The [facility] HospitalroHealth SystemComment on above:Performed By: #### MG, CH8, PHOS ####[facility] PATHOLOGY DZOYNWSHEE[address]230[address] [place] [address], [address]PHOSPHORUSon 76-13-0743Fbboktkhn [Mass/Vol]2.9 mg/dLNormal2.5-5.0The [facility] ([facility]oldtHealth SystemComment on above:Performed By: #### MG, CH8, PHOS ####[facility] PATHOLOGY SNMUTTUQED[address] [place] [address], [address]QPKKNGGPFVQ TIME AND INRon 56-40-8257VHF Coag (PPP) [Relative time]1.07 {INR}Normal0.90-1.10 The [facility] ([facility]oldtHealth SystemComment on above:Performed By: #### PT ####[facility] PATHOLOGY WUQVYKWFZZ39[address] [place] [address], [address]JU Coag (PPP) [Time] 12.0 sNormal9.7-12.9The [facility] HospitalroK[facility] SystemComment on above:Performed By: #### PT ####[facility] PATH[facility]Y PEXUUYRVRB0227 [place], [address] Progress Noteson 62-69-4080Apaegdxsbxaeo Authentication Interface Message Text NormalThe St. Luke'S HospitalroTheSedge.org SystemTranscription Authentication Interface Message Text NormalThe St. [facility]'S HospitalroKettering [facility] SystemUS Cheston 22-71-1540XSQQIIQCISY: US CHEST PLEURAL CAVITY 06/06/2024 11:17 PM [...] None [facility] ChestOrdered By: Randa Portillo on 78-15-2651BsaujWcidbo Work Phone: US PLEURAL EFFUSIONon 04-00-5154KU PLEURAL EFFUSION NormalThe [facility] (HulmboldtTheSedge.org System1:1 Interactionon 52-10-1491Vkvjwrnhkplmw Authentication Interface Message TextNormalThe [facility] (HulmboldtTheSedge.org SystemBASIC METABOLIC PANELon 42-72-0975Ibjge gap [Moles/Vol]12 mmol/FIykyri62-13Icv [facility] SystemComment on above:Performed By: #### MG CHI, CH8 ####[facility] PATH[facility]Y XFTINMINGV3363 [place], [address]Kkvdzzp [Mass/Vol]8.1 mg/dLLow8.6-10.3The [facility] ([facility]oldtHealth SystemComment on above:Performed By: #### CHI MG, CH8 ####[facility] PATH[facility] RQZAIFNOPL2384 [place], [place], [address]Chloride [Moles/Vol]103 mmol/POjeidu35-951Uii [facility] SystemComment on above:Performed By: #### CHI MG, CH8 ####[facility] PATHOLOGY AFFUFEIPZX1626 [place], [address]DM7 [Moles/Vol]31 mmol/QLapjnj02-70Wtv [facility] SystemComment on above:Performed By: #### MG CHI, CH8 ####[facility] PATH[facility]Y IKQRZQVOBV6723 [place], [address]Yfrbejnzmc [Mass/Vol]0.51 mg/dLLow0.70-1.30The [facility] SystemComment on above:Performed By: #### CHI MG, CH8 ####[facility] PATH[facility]Y QSUYPJAUPN6111 [place], [address]QKFJCADMN GFR (CKD-EPI)101 mL/min/1.73sqmNormal >=60The [facility] SystemComment on above:Result Comment: 2020 CKD EPI [...] Inclusion of Race in Diagnosing Kidney Disease. Nigerian Journal of Kidney Diseases 2021;79(2):26 8-88.e1.2. N Engl J Med 2020 Vol. 385 Issue 19 Pages 2693-2719Performed By: #### MG CHI, CH8 ####[facility] PATH[facility] WCUPBDHIMO3661 [place], [address]Jreyhdq [Mass/Vol]84 mg/rFMoauta58-848Qvo [facility] HospitalroHealth SystemComment on above:Performed By: #### MG CHI, CH8 ####S PATHOLOGY KSBRSYYVHR3746 [place], [address]Hpaowgwul [Moles/Vol]3.1 mmol/LLow 3.5-5.0The [facility] HospitalroHealth SystemComment on above:Performed By: #### MG CHI, CH8 ####S PATHOLOGY BXJVBWWPJI1310 [place], Sodium [Moles/Vol]143 mmol/NRtyyoe329-966Mbq [facility] HospitalroHealth SystemComment on above: Performed By: #### MG CHI, CH8 ####S PATHOLOGY AIAOSTUONT635[address] [place] [address], [address]Hsus nitrogen [Mass/Vol]10 mg/dLNormal7-25The [facility] ([facility]oldtHealth SystemComment on above:Performed By: #### MG CHI, CH8 ####S PATHOLOGY QCXDJYKKKL[address] [place] [address], [address]XJTWRCQR BLOOD COUNTon 23-49-7963Sniyritdjlf distribution width (RBC) [Ratio]17.5 %High 11.5-14.5The [facility] SystemComment on above:Performed By: #### CBC ####S PATHOLOGY NMKTRRNZQQ4054 [place], [address]Jtujpkvpvr (Bld) [Volume fraction]30.7 %Low41.0-53.0The [facility] SystemComment on above: Performed By: #### CBC ####S PATHOLOGY UWWZDVWNVP180[address] [place] [address], [address]Qvyzcqpkvt (Bld) [Mass/Vol]10.3 g/dLLow13.9-16.3 The [facility] SystemComment on above:Performed By: #### CBC ####S PATHOLOGY HESKAPICZI057[address] [place] [address], [address]BWD (RBC) [Entitic mass]31.3 asKxztxq10.0-34.0The [facility] SystemComment on above:Performed By: #### CBC ####[facility] PATHOLOGY FQAXFFPFEX[address] [place] [address], [address]PGAI (RBC) [Mass/Vol]33.4 g/rISqrivk50.0-35.9The [facility] System Comment on above:Performed By: #### CBC ####[facility] PATHOLOGY YQBXKBMDBD7[address] [place] [address], [address]TFM (RBC) [Entitic vol]94 fLNormal 80-100The [facility] HospitalroHealth SystemComment on above:Performed By: #### CBC ####[facility] PATHOLOGY YMSHYNHYQA[address] [place] [address], [address]Lvoyrnbs mean volume (Bld) [Entitic vol]6.8 fLLow7.5-11.2The [facility] HospitalroHealth SystemComment on above:Performed By: #### CBC ####[facility] PATHOLOGY TMQWZYOKZS[address] [place] [address], [address]Vlpzzyhto (Bld) [#/Vol]391 10*3/xMEhumws977-740Qon [facility] ([facility]oldtHealth SystemComment on above:Performed By: #### CBC ####[facility] PATHOLOGY XPLOBXRLZC[address] [place] [address], [address]JUO (Bld) [#/Vol]3.28 10*6/uLLow4.50-5.90The [facility] HospitalroHealth SystemComment on above:Performed By: #### CBC ####[facility] PATHOLOGY LDUZDBOJJH[address] [place] [address], [address]OSC (Bld) [#/Vol]6.3 10*3/uLNormal4.5-11.5The [facility] HospitalroHealth SystemComment on above: Performed By: #### CBC ####[facility] PATHOLOGY UBNGINJFRO[address] [place] [address], [address]PL CHEST/ABD/PELVIS W/ CONTRASTon 02-51-1100GP CHEST/ABD/PELVIS W/ CONTRASTNormalThe St[facility] HospitalroHealth SystemMAGNESIUMon 06-06-2024 Magnesium [Mass/Vol]1.8 mg/dLLow1.9-2.7The [facility] SystemComment on above: Performed By: #### MG CHI, CH8 ####[facility] PATHOLOG[facility] PYWVWWWWFL8076 [place], [address]NSDZIYEVKIix 57-52-0183Kgcpdbnyk [Mass/Vol]2.4 mg/dLLow2.5-5.0The [facility] SystemComment on above:Performed By: #### MG CHI, CH8 ####[facility] PATHOLOGY WPDBPAEGQD[address] [place] [address], [address]Progress Noteson 65-84-7086Byadhquweacbh Authentication Interface Message TextNoShelby Memorial Hospital SystemUS Cheston 12-11-5407Jpwsllmtz Study observation (narrative)[facility]1:1 Interactionon 22-38-7418Vvquarvquahws Authentication Interface Message TextNoShelby Memorial Hospital SystemBASIC METABOLIC PANELon 48-55-8810Solfb gap [Moles/Vol]9 mmol/YJbc77-03Etf [facility] System Comment on above:Performed By: #### MG CHI, CH8 ####[facility] PATHOLOGY WBDUZGXHRI[address] [place] [address], [address]Tzxqjpa [Mass/Vol]8.3 mg/dLLow8.6-10.3The [facility] SystemComment on above:Performed By: #### MG CHI, CH8 ####[facility] PATHOLOGY KJGKGATMGM1177 [place], [address]Chloride [Moles/Vol]109 mmol/LMwdv01-121Tuc [facility] SystemComment on above:Performed By: #### MG CHI, CH8 ####[facility] PATHOLOGY TZHEGYYHEX0893 [place], [address]SX2 [Moles/Vol]26 mmol/DRudsaw70-04Xqi [facility] SystemComment on above:Performed By: #### MG CHI, CH8 ####[facility] PATHOLOGY FNJRDZJBTD9368 [place], [address]Fioiblyzyn [Mass/Vol]0.51 mg/dLLow0.70-1.30The [facility] SystemComment on above:Performed By: #### MG MIRELES CH8 ####[facility] PATHOLOGY CFJILIQBXV1479 [place], [address]BBOTZUSER GFR (CKD-EPI)101 mL/min/1.73sqmNormal >=60The [facility] SystemComment on above:Result Comment: 2020 CKD EPI [...] Inclusion of Race in Diagnosing Kidney Disease. Nigerian Journal of Kidney Diseases 2021;79(2):26 8-88.e1.2. N Engl J Med 2020 Vol. 385 Issue 19 Pages 2216-4604Performed By: #### MG MIRELES CH8 ####[facility] PATHOLOGY UWJFSYWSMD9513 [place], [address]Zgldpae [Mass/Vol]91 mg/wJKvicsn74-781Lle [facility] SystemComment on above:Performed By: ###MG GAGE CH8 ####[facility] PATH[facility] BABCQZTMFF1392 [place], [address]Pxbkevuek [Moles/Vol]3.1 mmol/LLow 3.5-5.0The [facility] SystemComment on above:Performed By: ###MG GAGE CH8 ####[facility] PATH[facility] COMHBHOCWD7878 [place], Sodium [Moles/Vol]141 mmol/UYoikaq881-543Tbj [facility] SystemComment on above: Performed By: #### MG MIRELES CH8 ####[facility] PATH[facility] ALLSUEFWKO9497 [place], [address]Sifc nitrogen [Mass/Vol]12 mg/dLNormal7-25The [facility] ([facility]oldtHealth SystemComment on above:Performed By: #### MG MIRELES CH8 ####MHAlfonzo PATHOLOGY UUVVMAZLOK4477 [place], [address]YIMTCKUM BLOOD COUNTon 79-09-7648Uoxckhditxc distribution width (RBC) [Ratio]17.7 %High 11.5-14.5The [facility] ([facility]oldtHealth SystemComment on above:Performed By: #### CBC ####[facility] PATHOLOGY NTQXWITCUQ9301 [place], [address]Jskhamxred (Bld) [Volume fraction]30.6 %Low41.0-53.0The [facility] ([facility]oldtHealth SystemComment on above: Performed By: #### CBC ####[facility] PATHOLOGY NAUWDJUOCP[address] [place] [address], [address]Ryaukfnnjy (Bld) [Mass/Vol]10.2 g/dLLow13.9-16.3 The [facility] ([facility]oldtHealth SystemComment on above:Performed By: #### CBC ####[facility] PATHOLOGY TGBBKIRSEU98[address] [place] [address], [address]TDO (RBC) [Entitic mass]31.4 ikDrxsgs12.0-34.0The [facility] ([facility]oldtHealth SystemComment on above:Performed By: #### CBC ####[facility] PATHOLOGY FQMOXJJRJN69[address] [place] [address], [address]WQWM (RBC) [Mass/Vol]33.4 g/mBMqvzlp40.0-35.9The [facility] Hospitalro[facility] System Comment on above:Performed By: #### CBC ####[facility] PATHOLOGY LPPVNSORVX8[address] [place] [address], [address]WZD (RBC) [Entitic vol]94 fLNormal 80-100The [facility] SystemComment on above:Performed By: #### CBC ####[facility] PATHOLOGY UBALGDVNYG[address] [place] [address], [address]Cqaquszn mean volume (Bld) [Entitic vol]6.7 fLLow7.5-11.2The [facility] SystemComment on above:Performed By: #### CBC ####[facility] PATHOLOGY VPOTIFGWLK28340[address] [place] [address], [address]Aiqvfukbw (Bld) [#/Vol]427 10*3/uYGxwu082-480Riv [facility] SystemComment on above:Performed By: #### CBC ####S PATHOLOGY ZVRUKTPSKC[address] [place], [phone] (Bld) [#/Vol]3.27 10*6/uLLow4.50-5.90The [facility] SystemComment on above:Performed By: #### CBC ####S PATHOLOGY [address]CUHWMQ[address] [place] [address], [phone] (Bld) [#/Vol]5.7 10*3/uLNormal4.5-11.5The [facility] ([facility] SystemComment on above: Performed By: #### CBC ####S PATHOLOGY OVRTRRYUJS[address] [place] [address], [phone] [phone] [Mass/Vol]1.9 mg/dLNormal1.9-2.7The [facility] SystemComment on above:Performed By: #### PHOAlfonzo MG, CH8 ####S PATHOLOGY S[address]AGUCHX[address] [place] [address], [phone] 19-30-4159Ogishvnnh [Mass/Vol]2.5 mg/dLNormal2.5-5.0The [facility] SystemComment on above:Performed By: #### PHOAlfonzo MG, CH8 ####S PATHOLOGY DPAIVCWSSK[address] [place] [address], [phone] Noteson [phone] Authentication Interface Message TextNormElyria Memorial Hospitale St. Luke[facility] HospitalroHealth SystemTranscription Authentication Interface Message TextNormCumberland HospitalroHealth SystemTranscription Authentication Interface Message TextNormElyria Memorial Hospitale St. Luke[facility] HospitalroK[facility] SystemXR ABDOMEN AP 1 VIEWon [id number] ABDOMEN AP 1 VIEWNormalThe [facility] SystemXR CHEST AP OR PA 1 VIEWon [phone] CHEST AP OR PA 1 VIEW NormalThe [facility] Single viewon 95-02-1809IBWVHSSRRXB: XR CHEST AP OR PA 1 VIEW [...] ASSOCIATED DIAGNOSIS: s/p tracheostomy ORDERING PROVIDER: VALERY REYAN COMPARISON: XR CHEST AP OR PA 1 [...] thoracic trachea. Otherwise, unchanged pulmonary findings, asdetailed [facility] (narrative)[facility] Chest Single viewOrdered By: Vignesh Higuera on 04-81-0469LdeywTxgxld Work Phone: [phone] Interactionon 49-68-5100Dwofdvhzcyqfp Authentication Interface Message TextNoMarquee Productions IncroTheSedge.org SystemAnesthesia Postprocedure Evaluationon 10-65-4895Nubfsbgnxqkls Authentication Interface Message TextNoSportboome RxVantageroTheSedge.org SystemAnesthesia Preprocedure Evaluationon 67-50-6250Vpnrqzvkxkphw Authentication Interface Message TextNoSportboome RxVantageroHealth SystemAnesthesia Transfer Of Careon 90-76-1961Ihtqxmpxianuc Authentication Interface Message TextNormPay by Shopping (deal united)e [facility] SystemBASIC METABOLIC PANELon 75-72-2035Gskko gap [Moles/Vol]11 mmol/UTjrtgn36-66Bkl [facility] SystemComment on above:Performed By: #### CHI VERDE MG ####[facility] PATHOLOGY AFCCKGIKBW6602 [place], [address]Anlimxn [Mass/Vol]7.7 mg/dLLow8.6-10.3The [facility] HospitalroHealth SystemComment on above:Performed By: #### CHI VERDE, MG ####[facility] PATHOLOGY HRHXGFQBWD7188 [place], [place], [address]Chloride [Moles/Vol]108 mmol/ASgdu75-665Utx [facility] SystemComment on above:Performed By: #### CHI VERDE MG ####[facility] PATHOLOGY JVEDOQWCHE0471 [place], [address]NG1 [Moles/Vol]23 mmol/TQopkzd62-48Kpk [facility] ([facility]oldtHealth SystemComment on above:Performed By: #### CHI VERDE MG ####[facility] PATHOLOGY USLGVNARUE9606 [place], [address]Axzpwuypfu [Mass/Vol]0.54 mg/dLLow0.70-1.30The [facility] SystemComment on above:Performed By: #### CHI VERDE MG ####[facility] PATHOLOGY HOXZIANCCF3045 [place], [address]OCQUWTZBW GFR (CKD-EPI)99 mL/min/1.73sqmNormal>=60 The [facility] SystemComment on above:Result Comment: 2020 CKD EPI [...] Inclusion of Race in Diagnosing Kidney Disease. Nigerian Journal of Kidney Diseases 2021;79(2):26 8-88.e1.2. N Engl J Med 1 Vol. 385 Issue 19 Pages 1733-1744Performed By: #### CH8, CHI MG ####S PATHOLOGY ONDOHPWXAJ9520 [place], [address]Yzgnztp [Mass/Vol]87 mg/dIYmxjrf89-824Bvo [facility] HospitalroHealth SystemComment on above:Performed By: #### CHCHI Langston MG ####S PATHOLOGY NGEIFYCMQX5343 [place], [address]Bdaublfxo [Moles/Vol]3.2 mmol/LLow 3.5-5.0The [facility] HospitalroHealth SystemComment on above:Performed By: #### AMMON, CHI MG ####S PATHOLOGY HVBIDJIOCK6858 [place], Sodium [Moles/Vol]139 mmol/TOtypct059-173Dbj [facility] ([facility]oldtHealth SystemComment on above: Performed By: #### AMMON, CHI, MG ####S PATHOLOGY BWUCEJQCCD6004 [place], [address]Zzgw nitrogen [Mass/Vol]17 mg/dLNormal7-25The [facility] ([facility]oldtHealth SystemComment on above:Performed By: #### AMMON, CHI MG ####S PATHOLOGY LBTFWTUSVO[address] [place] [address], [address]YZSIR GAS, ARTERIALon 44-48-4824DQ ABE0.3 mmol/LNormal-2.0-3.0The [facility] HospitalroHealth SystemComment on above:Performed By: #### CR BGA ####S PATHOLOGY JXYLMBOQMX9318 [place], [address]WF BGE258.7 mm HgLow35.0-45.0The [facility] HospitalroHealth SystemComment on above:Performed By: #### CR BGA ####S PATHOLOGY TQEZPUZFDR[address] [place] [address], [address]FU PHA7.466High 7.350-7.450The [facility] ([facility]oldtHealth SystemComment on above:Performed By: #### CR BGA ####S PATHOLOGY PYSOSDYKWI[address] [place] [address], [address]SR UT1053 mm LxTbow87-439Sfb [facility] ([facility]oldtHealth SystemComment on above:Performed By: #### CR BGA ####[facility] PATHOLOGY XTBHLMHDZI[address] [place] [address], [address]QIU9 (CATEGORY)35%NormalThe [facility] ([facility]oldtHealth SystemComment on above: Performed By: #### CR BGA ####[facility] PATHOLOGY TPDPZTGWIV[address] [place] [address], [address]IRC6 (Bld) [Moles/Vol]23 mmol/UDzozmb78-70Doe [facility] ([facility]oldtHealth SystemComment on above:Performed By: #### CR BGA ####[facility] PATHOLOGY OYBCUZCJWE8[address] [place] [address], [address]OZDJVngpOntzsyZco [facility] SystemComment on above:Performed By: #### CR BGA ####[facility] PATHOLOGY JOTBDOUPGT[address] [place] [address], [address]Dxehlo saturation in Blood99.0 %Jnxesg14.0-99.0The [facility] ([facility]oldtHealth SystemComment on above:Performed By: #### CR BGA ####[facility] PATHOLOGY SADMEICSPF153[address] [place] [address], [address]Ztfcn Attestationon 61-34-8801Irqpgrfzhxcrs Authentication Interface Message TextNoCleveland Clinic Union Hospitale [facility]tering Health DaytonCOMPLETE BLOOD COUNTon 06-04-2024 Erythrocyte distribution width (RBC) [Ratio]17.4 %High11.5-14.5The [facility] SystemComment on above:Performed By: #### CBC ####[facility] PATHOLOGY VCRRUQWZHH[address] [place] [address], [address]Rxalpibpmk (Bld) [Volume fraction]27.7 %Low41.0-53.0The [facility] SystemComment on above:Performed By: #### CBC ####[facility] PATHOLOGY QUNNJLFZAI349[address] [place] [address], Hemoglobin (Bld) [Mass/Vol]9.1 g/dLLow13.9-16.3The [facility] ([facility]oldtHealth SystemComment on above:Performed By: #### CBC ####[facility] PATHOLOGY KXNSCICFUQ[address] [place] [address], [address]VUV (RBC) [Entitic mass]30.7 jmMepfja00.0-34.0The [facility] HospitalroHealth SystemComment on above:Performed By: #### CBC ####[facility] PATHOLOGY QRUQHWSSMV[address] [place] [address], [address]DIQU (RBC) [Mass/Vol] 32.9 g/lSBemzao87.0-35.9The [facility] SystemComment on above:Performed By: #### CBC ####[facility] PATHOLOGY JXCRFYETXR2816[address] [place] [address], [address]SGY (RBC) [Entitic vol]93 aRDntjpc53-671Uyd [facility] HospitalroHealth SystemComment on above:Performed By: #### CBC ####[facility] PATHOLOGY WXBKTCPKCM7512[address] [place] [address], [address]Utvjcnod mean volume (Bld) [Entitic vol]6.8 fLLow 7.5-11.2The [facility] HospitalroHealth SystemComment on above:Performed By: #### CBC ####[facility] PATHOLOGY FWBJQPYHDU[address] [place] [address], [address]Enjajxeep (Bld) [#/Vol]398 10*3/qFJepimc441-001Gcr [facility] HospitalroHealth SystemComment on above: Performed By: #### CBC ####[facility] PATHOLOGY RVBVOIVSXS[address] [place] [address], [address]ZJS (Bld) [#/Vol]2.97 10*6/uLLow4.50-5.90The [facility] HospitalroHealth SystemComment on above:Performed By: #### CBC ####[facility] PATHOLOGY SGEUNBZOKJ[address] [place] [address], [address]KHG (Bld) [#/Vol]6.0 10*3/uLNormal4.5-11.5The [facility] HospitalroHealth SystemComment on above:Performed By: #### CBC ####[facility] PATHOLOGY VPDNEJMODN[address] [place] [address], MAGNESIUMon 94-55-6995Cyvacetqm [Mass/Vol]2.0 mg/dLNormal1.9-2.7The [facility] SystemComment on above:Performed By: #### CH8, PHOS, MG ####[facility] PATHOLOGY DUGLOIMXZZ2562 [place], [address]LT Noteon 06-04-2024 [employer] Supervisor Authentication Interface Message TextNormAddison Gilbert HospitalTheSedge.org System [place] Nursingon 89-94-8943Pgplsbfrkqpmy Authentication Interface Message Text11:27 Hand-off report called to Jena Toure RN on .NormalThe St. [facility]S HospitalroKettering [facility] SystemPHOSPHORUSon 09-71-8370Igzfqgnrp [Mass/Vol]4.4 mg/dLNormal2.5-5.0The [facility] SystemComment on above:Performed By: #### K, PHOS ####[facility] PATHOLOGY QAFIOPOAYC2883 [place], [address]Asqujoexp [Mass/Vol]1.7 mg/dLLow2.5-5.0The [facility] SystemComment on above:Performed By: #### LLOYD8, PHOS, MG ####[facility] PATHOLOGY FKXEOHNEDU7571 [place], [place], [address]POTASSIUMon 17-46-3639Zdtxkvsio [Moles/Vol]3.7 mmol/LNormal3.5-5.0The [facility] SystemComment on above:Performed By: #### K, PHOS ####[facility] PATHOLOGY NFDCOVQYVM4821 [place], [address]Zopvsukc Noteson 52-96-7097Dltsjyknsgers Authentication Interface Message TextSocial Work ICU Note Attempted to reach pt's Ilana Michelle at [phone] to discuss LTACH planning. No answer. SW will follow-up as able. DARIEL Littlejohn, Jose MCarePartners Rehabilitation HospitalTheSedge.org SystemTranscription Authentication Interface Message TextNoCleveland Clinic Union Hospitale [facility] (HulmboldtTheSedge.org SystemXR CHEST AP OR PA 1 VIEWon 96-63-8730MU CHEST AP OR PA [address]Elyria Memorial HospitalReputation[address]com [address] [facility]'S HospitalroTheSedge.org SystemXR Chest Single viewon 85-26-5778EALKRAZKVFY: XR CHEST AP OR PA 1 VIEW [...] Chest Single viewOrdered By: Trevin Laurent on 40-89-4866CtnxkTkuxam Work Phone: [phone] Interactionon 78-58-7815Mnigdqdirafth Authentication Interface Message TextNormalThe MetroTheSedge.org SystemBASIC METABOLIC PANELon 74-22-6459Obeho gap [Moles/Vol]9 mmol/VDuz87-01Tvi [facility] Comment on above:Performed By: #### AMMON MG, PHOS ####[facility] PATHOLOGY FISOVRSQZI5637 [place], [address]Fbvkbxj [Mass/Vol]7.9 mg/dLLow8.6-10.3The [facility] SystemComment on above:Performed By: #### AMMON MG, PHOS ####[facility] PATHOLOGY NQAAMAXZCH4923 [place], [place], [address]Chloride [Moles/Vol]104 mmol/OJgxnlc58-997Phj [facility] SystemComment on above:Performed By: #### LLOYD8, MG, PHOS ####[facility] PATHOLOGY NSCFKWXIKE9775 [place], [address]QJ4 [Moles/Vol]27 mmol/VMqyhka88-46Zrg [facility] SystemComment on above:Performed By: #### AMMON MG, PHOS ####[facility] PATHOLOGY NTWVWKQRTB4717 [place], [address]Oqwouxnpgi [Mass/Vol]0.73 mg/dLNormal0.70-1.30The [facility] SystemComment on above: Performed By: #### AMMON, MG, PHOS ####[facility] PATHOLOGY IYIEXZBSIL0601 [place], [address]TWBJKPRCT GFR (CKD-EPI)90 mL/min/1.73sqmNormal>=60 The [facility] SystemComment on above:Result Comment: 2020 CKD EPI [...] Inclusion of Race in Diagnosing Kidney Disease. Nigerian Journal of Kidney Diseases 2021;79(2):26 8-88.e1.2. N Engl J Med 2020 Vol. 385 Issue 19 Pages 7877-2774Performed By: #### CH8 MG, PHOS ####[facility] PATHOLOGY ZULXJILIVV8076 [place], [address]Kvfayvw [Mass/Vol]99 mg/eVThluls49-679Svj [facility] HospitalroHealth SystemComment on above:Performed By: #### MG AMMON, CHI ####S PATHOLOGY ZGJXUFIZRG8883 [place], [address]Duwiwrqjo [Moles/Vol]3.3 mmol/LLow 3.5-5.0The [facility] HospitalroHealth SystemComment on above:Performed By: #### CHIvis, , PHOAlfonzo ####[facility] PATHOLOGY EEOCGKFOCL2583 [place], Sodium [Moles/Vol]137 mmol/LNcgiso046-563Tdw [facility] HospitalroHealth SystemComment on above: Performed By: #### MG AMMON, PHOAlfonzo ####[facility] PATHOLOGY EGIEYSCTVE[address] [place] [address], [address]Nvav nitrogen [Mass/Vol]21 mg/dLNormal7-25The [facility] SystemComment on above:Performed By: #### AMMON, , PHOAlfonzo ####[facility] PATHOLOGY BLBOEGPBHX47[address] [place] [address], [address]GFVRE GAS, ARTERIALon 19-51-3094MK % O2 SAT> 100.7Vnqd54.0-99.0The [facility] System Comment on above:Performed By: #### CR BGA ####[facility] PATHOLOGY YCBAMPMDOR[address] [place] [address], [address]NE ABE2.8 mmol/LNormal-2.0-3.0The [facility] HospitalroHealth SystemComment on above:Performed By: #### CR BGA ####[facility] PATHOLOGY SJYZGEMWYZ34350[address] [place] [address], [address]FE SWY379.8 mm HgNormal 35.0-45.0The [facility] HospitalroHealth SystemComment on above:Performed By: #### CR BGA ####S PATHOLOGY TQOVRVVWXP4712[address] [place] [address], [address]SN PHA7.518Bmbcer7.350-7.450The [facility] HospitalroHealth SystemComment on above:Performed By: #### CR BGA ####[facility] PATHOLOGY MMXNQVDFDB[address] [place] [address], [address]WB UA5783 mm UqBdds76-621Alw [facility] HospitalroHealth SystemComment on above: Performed By: #### CR BGA ####[facility] PATHOLOGY KRXHBXQFXD5[address] [place] [address], [address]WIQ9 (CATEGORY)40%NormalThe [facility] Hospitalro[facility] System Comment on above:Performed By: #### CR BGA ####[facility] PATHOLOGY FBSLUSKLBJ[address] [place] [address], [address]XLM3 (Bld) [Moles/Vol]27 mmol/LNormal 21-28The [facility] ([facility]oldtHealth SystemComment on above:Performed By: #### CR BGA ####[facility] PATHOLOGY DNFVFOSSPI06[address] [place] [address], [address]EYERVrwp NormalThe [facility] SystemComment on above:Performed By: #### CR BGA ####[facility] PATHOLOGY EUGSABGYSN[address] [place] [address], [address]RGAVBQXD BLOOD COUNTon 45-41-5223Pqhqhcfwmvq distribution width (RBC) [Ratio]17.5 %High 11.5-14.5The [facility] SystemComment on above:Performed By: #### CBC ####[facility] PATHOLOGY IPBWEFRDMQ[address] [place] [address], [address]Ownybmsllh (Bld) [Volume fraction]27.0 %Low41.0-53.0The [facility] SystemComment on above: Performed By: #### CBC ####[facility] PATHOLOGY AZRWJXLVOF[address] [place] [address], [address]Drwpblgtla (Bld) [Mass/Vol]9.2 g/dLLow13.9-16.3The [facility] ([facility]oldtHealth SystemComment on above:Performed By: #### CBC ####[facility] PATHOLOGY BUYEMTSCXY[address]15[address] [place] [address], [address]TCK (RBC) [Entitic mass]31.7 lcZyphmm82.0-34.0The [facility] SystemComment on above:Performed By: #### CBC ####[facility] PATHOLOGY PWNCRUGOUP60[address] [place] [address], [address]VKJB (RBC) [Mass/Vol]34.1 g/xLDgzziy64.0-35.9The [facility] System Comment on above:Performed By: #### CBC ####[facility] PATHOLOGY SMWQWMRFKF9[address] [place] [address], [address]EIN (RBC) [Entitic vol]93 fLNormal 80-100The [facility] ([facility]oldtHealth SystemComment on above:Performed By: #### CBC ####[facility] PATHOLOGY QDYYCAJHLD4627[address] [place] [address], [address]Hiexdpfs mean volume (Bld) [Entitic vol]7.1 fLLow7.5-11.2The [facility] ([facility]oldtHealth SystemComment on above:Performed By: #### CBC ####[facility] PATHOLOGY LFFJSFDGIP1925[address] [place] [address], [address]Bdswpftea (Bld) [#/Vol]396 10*3/bEWgytxk995-303Ohg [facility] ([facility]oldtHealth SystemComment on above:Performed By: #### CBC ####[facility] PATHOLOGY JTEKNLGROD[address] [place] [address], [address]UUN (Bld) [#/Vol]2.90 10*6/uLLow4.50-5.90The [facility] ([facility]oldtHealth SystemComment on above:Performed By: #### CBC ####[facility] PATHOLOGY SCTNAYHCSE[address] [place] [address], [address]IJC (Bld) [#/Vol]6.6 10*3/uLNormal4.5-11.5The [facility] SystemComment on above: Performed By: #### CBC ####[facility] PATHOLOGY XGQBRHEWHP[address] [place] [address], [address]Urelwhhvgt 44-34-4650Otrejqyfegdoi Authentication Interface Message TextNormElyria Memorial Hospitale [facility] SystemTranscription Authentication Interface Message TextNormOhioHealth [facility] SystemMAGNESIUMon 06-03-2024 Magnesium [Mass/Vol]2.1 mg/dLNormal1.9-2.7The [facility] SystemComment on above:Performed By: #### CH8, MG, PHOS ####[facility] PATHOLOGY UVCGWIYCSZ3826 [place], [address]HDQUWSGDZMqd 64-43-4286Ycpmappsp [Mass/Vol]3.1 mg/dLNormal2.5-5.0The [facility] SystemComment on above:Performed By: #### CH8, CHI PRADO ####[facility] PATHOLOGY BFDCHGSNRT4886 [place], [address]Siezzopk Noteson 88-39-5117Ngvclloorhlfv Authentication Interface Message TextNormalThe St. [facility]S HospitalroKettering [facility] SystemXR CHEST AP OR PA 1 VIEWon 01-15-8449NK CHEST AP OR PA [address] [facility] HospitalroKettering [facility] SystemXR Chest Single viewon 71-69-9133VZYHHPJBZET: XR CHEST AP OR PA 1 VIEW 06/03/2024 06:41 AM CLINICAL HISTORY: Endotracheal tube assessment ASSOCIATED DIAGNOSIS: Endotracheal tube assessment ORDERING PROVIDER: VALERY DIAZ NOTE: COMPARISON: XR CHEST AP OR [...] DIAGNOSIS: Endotracheal tube assessment ORDERING PROVIDER: VALERY DIAZ NOTE: COMPARISON: XR CHEST AP OR [...] Chest Single viewOrdered By: Clare Choe on 37-95-4427XomnlAjyopf Work Phone: [phone]:1 Interactionon 36-30-7232Gonkxqyoodwbr Authentication Interface Message TextNormalThe [facility] SystemBASIC METABOLIC PANELon 84-45-1160Cxwhv gap [Moles/Vol]13 mmol/JCbwtvn06-44Umx [facility] SystemComment on above:Performed By: #### CH8, CRR ####S PATHOLOGY HZKCQNCDKC7186 [place], [address]Eojylhz [Mass/Vol]7.8 mg/dLLow8.6-10.3The [facility] SystemComment on above:Performed By: #### CH8, CRR ####S PATHOLOGY GZQWCTAMMZ7741 [place], [address] Chloride [Moles/Vol]100 mmol/IFnctpp08-734Krz [facility] SystemComment on above:Performed By: #### CH8, CRR ####S PATHOLOGY WVYTBIFWPL8375 [place], [address]TO3 [Moles/Vol]33 mmol/DDcnr50-20Ibi [facility] SystemComment on above:Performed By: #### CH8, CRR ####S PATHOLOGY ESSRATKQOC8374 [place], [address]Rqoitkiosc [Mass/Vol] 0.71 mg/dLNormal0.70-1.30The [facility] SystemComment on above:Performed By: #### CH8, CRR ####[facility] PATHOLOGY ZYPVPLNOQY2665 [place], [address]XCZESNNVP GFR (CKD-EPI)91 mL/min/1.73sqmNormal>=60The [facility] ([facility]oldtHealth SystemComment on above:Result Comment: 2020 CKD EPI [...] Inclusion of Race in Diagnosing Kidney Disease. Nigerian Journal of Kidney Diseases 2021;79(2):268-88.e1.2. N Engl J Med 1 Vol. 385 Issue 19 Pages 8266-5394Performed By: #### CH8, CRR ####[facility] PATHOLOGY MMGYJOAOAG9594 [place], [address]Owzcoon [Mass/Vol]114 mg/kHBdxh80-260Cqx [facility] SystemComment on above:Performed By: #### CH8, CRR ####[facility] PATHOLOGY SNVWANPLIH4190 [place], Potassium [Moles/Vol]3.7 mmol/LNormal3.5-5.0The [facility] ([facility]oldtHealth SystemComment on above:Performed By: #### CH8, CRR ####[facility] PATHOLOGY RQMKBJENCP1586 [place], [address]Tjznsy [Moles/Vol]142 mmol/QDmxyrb343-057Byy [facility] SystemComment on above:Performed By: #### CH8, CRR ####[facility] PATHOLOGY NFOEGLZFMY5341 [place], [address]Saqx nitrogen [Mass/Vol]17 mg/dLNormal7-25The [facility] ([facility]oldtHealth SystemComment on above:Performed By: #### CH8, CRR ####[facility] PATHOLOGY NUABFNQFJV9200 [place], [address]Xvqse gap [Moles/Vol]13 mmol/PHzjsjt08-76Jmz [facility] SystemComment on above:Performed By: #### MG AMMON, PHOS ####[facility] PATHOLOGY QCJOWSEYDJ2241 [place], [address]Wrbfsqr [Mass/Vol]7.9 mg/dLLow8.6-10.3 The [facility] SystemComment on above:Performed By: #### MG AMMON, PHOS ####[facility] PATHOLOGY INXQSIHXDD1272 [place], [address]Lcinlbwe [Moles/Vol]99 mmol/ACzmduz13-104Hfm [facility] SystemComment on above:Performed By: #### MG AMMON, PHOS ####[facility] PATHOLOGY BUKHDBAWCQ3758 [place], [address]BW8 [Moles/Vol]36 mmol/LHhyh19-47Fqa [facility] SystemComment on above:Performed By: #### MG AMMON, PHOS ####[facility] PATHOLOGY ONRBWEHHYH2480 [place], [address]Jhnpazhwag [Mass/Vol] 0.67 mg/dLLow0.70-1.30The [facility] SystemComment on above:Performed By: #### MG AMMON, PHOS ####[facility] PATHOLOGY HEZCBNCGUU9921 [place], [address]ZHTHYNXNB GFR (CKD-EPI)93 mL/min/1.73sqmNormal>=60The [facility] SystemComment on above:Result Comment: 2020 CKD EPI [...] Inclusion of Race in Diagnosing Kidney Disease. Nigerian Journal of Kidney Diseases 2021;79(2):268-88.e1.2. N Engl J Med 2020 Vol. 385 Issue 19 Pages 2205-3819Performed By: #### MG AMMON, PHOS ####[facility] PATHOLOGY LBKNUYUGAW8637 [place], [address]Diexrwo [Mass/Vol]137 mg/jFOcov26-955Gtb [facility] HospitalroHealth SystemComment on above:Performed By: #### MG VERDE PHOS ####S PATHOLOGY UWGJDGRMII9191 [place], [address]Pjqysaxty [Moles/Vol]4.1 mmol/LNormal3.5-5.0The [facility] SystemComment on above:Performed By: #### MG VERDE PHOS ####[facility] PATHOLOGY ZTGLBQJEAC2760 [place], [address]Akjjjq [Moles/Vol]144 mmol/KMzewor330-547Luo [facility] HospitalroHealth SystemComment on above: Performed By: #### MG VERDE PHOS ####[facility] PATHOLOGY VMADKIBWVJ[address] [place] [address], [address]Mcvy nitrogen [Mass/Vol]15 mg/dLNormal7-25The [facility] HospitalroHealth SystemComment on above:Performed By: #### MG VERDE PHOS ####[facility] PATHOLOGY IRHKKRJCYA[address] [place] [address], [address]WCGEV GAS, ARTERIALon 54-07-6212CN ABE4.0 mmol/LHigh-2.0-3.0The [facility] HospitalroHealth SystemComment on above:Performed By: #### CR BGA ####[facility] PATHOLOGY NPQWSIGTLD25[address] [place] [address], [address]WD GFC003.2 mm ErCwjp45.0-45.0The [facility] HospitalroHealth SystemComment on above:Performed By: #### CR BGA ####[facility] PATHOLOGY PXPWXDLWVS[address] [place] [address], [address]NK PHA7.359Normal 7.350-7.450The [facility] HospitalroHealth SystemComment on above:Performed By: #### CR BGA ####[facility] PATHOLOGY JZPRUFABCK[address] [place] [address], [address]OH RP6291 mm AoFpqy81-612Gwe [facility] HospitalroHealth SystemComment on above:Performed By: #### CR BGA ####S PATHOLOGY IATBXHPBWH5216[address] [place] [address], [id number] (CATEGORY)50%NormalThe St. Luke[facility]S HospitalroHealth SystemComment on above: Performed By: #### CR BGA ####[facility] PATHOLOGY STUQFXJQCO[address] [place] [address], [id number] (Bld) [Moles/Vol]30 mmol/LIglc01-31Juc St[facility] HospitalroHealth SystemComment on above:Performed By: #### CR BGA ####[facility] PATHOLOGY [id number] [place] [address], [id number] [address] [facility] Hospitalro[facility] SystemComment on above:Performed By: #### CR BGA ####[facility] PATHOLOGY FZUSGNSZGL[address] [place] [address], [id number] saturation in Blood99.4 %High95.0-99.0The St[facility] HospitalroHealth SystemComment on above:Performed By: #### CR BGA ####[facility] PATHOLOGY BVKKZTXHDB[address] [place] [address], [id number] ABE11.9 mmol/LHigh-2.0-3.0The [facility] HospitalroHealth SystemComment on above: Performed By: #### CR BGA ####[facility] PATHOLOGY VHRATRQXIJ[address] [place] [address], [id number] MYZ949.7 mm UjFnrm46.0-45.0The [facility] HospitalroHealth SystemComment on above:Performed By: #### CR BGA ####[facility] PATHOLOGY UCFPLROUTC[address] [place] [address], [address]KU PHA> 7.500High 7.350-7.450The [facility] HospitalroHealth SystemComment on above:Performed By: #### CR BGA ####[facility] SYURKFEZGO[address] [place] [address], [address]RH LS4031 mm VgYbpb84-812Uzl St[facility] HospitalroHealth SystemComment on above:Performed By: #### CR BGA ####[facility] PATH[facility] SVPIGAREEM265[address] [place] [address], [address]DEK2 (CATEGORY)50%NormalThe St. [facility]S HospitalroHealth SystemComment on above: Performed By: #### CR BGA ####[facility] PATH[facility] ZBWJUQARVB[address] [place] [address], [address]UNL3 (Bld) [Moles/Vol]36 mmol/KExne98-34Msa [facility] HospitalroHealth SystemComment on above:Performed By: #### CR BGA ####[facility] PATHOLOGY GUXPNBDLPJ[address]360[address] [place] [address], [address]SCEJAkaqMkkqldMhj [facility] SystemComment on above:Performed By: #### CR BGA ####[facility] PATH[facility] MSXHELNRNX[address] [place] [address], [address]Fibdtv saturation in Smmiz191.0 %High95.0-99.0The [facility] ([facility]oldtHealth SystemComment on above:Performed By: #### CR BGA ####[facility] PATH[facility] IVNCLIAIIE[address] [place] [address], [address]IMUKJWRL BLOOD COUNTon 24-90-1472Uhizqutvrxs distribution width (RBC) [Ratio]18.2 %High11.5-14.5The [facility] ([facility]oldtHealth SystemComment on above:Performed By: #### CBC ####[facility] PATH[facility] DBGPCPEMBU[address] [place] [address], [address]Fuabuglfsp (Bld) [Volume fraction]26.6 %Low41.0-53.0The [facility] SystemComment on above:Performed By: #### CBC ####[facility] PATH[facility] LTUNMFDNRX[address] [place] [address], [address]Papmtourdk (Bld) [Mass/Vol]9.2 g/dLLow 13.9-16.3The [facility] ([facility]oldtHealth SystemComment on above:Performed By: #### CBC ####[facility] PATH[facility] BRRHYWEIWZ[address] [place] [address], [address]SRY (RBC) [Entitic mass]31.2 tsErqvoi64.0-34.0The [facility] ([facility]oldtHealth SystemComment on above: Performed By: #### CBC ####[facility] PATH[facility] XTVGMSCOVN[address] [place] [address], [address]IFFX (RBC) [Mass/Vol]34.7 g/vNJhskkv02.0-35.9The [facility] ([facility]oldtHealth SystemComment on above:Performed By: #### CBC ####[facility] PATH[facility] RMIUQVTEQY669[address] [place] [address], [address]MEA (RBC) [Entitic vol] 90 lFEvezyl52-478Qca [facility] SystemComment on above:Performed By: #### CBC ####[facility] PATH[facility] XZRFNTABSS[address] [place] [address], Platelet mean volume (Bld) [Entitic vol]6.3 fLLow7.5-11.2The [facility] System Comment on above:Performed By: #### CBC ####[facility] PATH[facility] HHVMIWNCZK8[address] [place] [address], [address]Fbggvbcvt (Bld) [#/Vol]409 10*3/uLHigh 150-400The [facility] SystemComment on above:Performed By: #### CBC ####[facility] PATH[facility] OLOMKXKYCG[address] [place] [address], [address]PWC (Bld) [#/Vol]2.96 10*6/uLLow4.50-5.90The [facility] SystemComment on above:Performed By: #### CBC ####[facility] PATH[facility] KTCNWSSXWF[address] [place] [address], [address]WNQ (Bld) [#/Vol]7.8 10*3/uLNormal4.5-11.5The [facility] System Comment on above:Performed By: #### CBC ####[facility] NJTMJKSUPD[address] [place] [address], [address]EYMBECOV RANDOMon 92-84-7770DMIGPKPR, SERUM2.7 ug/dLNormalThe [facility] SystemComment on above:Performed By: #### CH8, CRR ####[facility] PATH[facility] KDOLBOOJBS[address] [place] [address], [address]Cqwauyrsoh 67-33-7179Cejshjbnvwwhq Authentication Interface Message TextNormElyria Memorial Hospitale [facility] SystemMAGNESIUMon 59-68-5209Nhbnelvmj [Mass/Vol]1.9 mg/dLNormal1.9-2.7The [facility] SystemComment on above:Performed By: #### CH8, MG, PHOS ####[facility] PATH[facility] SXKSFBSWQT4820 [place], [place], [address]PHOSPHORUSon 65-32-2802Pasvnikfl [Mass/Vol]3.5 mg/dLNormal2.5-5.0The [facility] SystemComment on above:Performed By: #### CH8, CHI PRADO ####[facility] RDENTQWRWC2849 [place], [address]Tonboxav Noteson 09-42-4140Mdlxxunpahbhn Authentication Interface Message TextNormalThe [facility] SystemTranscription Authentication Interface Message TextNormElyria Memorial Hospitale [facility] SystemXR CHEST AP OR PA 1 VIEWon 67-26-6583CI CHEST AP OR PA [address] [facility]ro[facility] SystemXR Chest Single viewon 90-03-9210AXWAJXBVMBR: XR CHEST AP OR PA 1 VIEW 06/02/2024 06:22 AM CLINICAL HISTORY: Intubation ASSOCIATED DIAGNOSIS: Intubation ORDERING PROVIDER: CAILIN BELTRAN TECHNNINOSKA NOTE: COMPARISON: XR CHEST AP OR [...] ASSOCIATED DIAGNOSIS: Intubation ORDERING PROVIDER: CAILIN BELTRAN TECHNNINOSKA NOTE: COMPARISON: XR CHEST AP OR [...] Study observation (narrative)[facility] Chest Single viewOrdered By: Micha Lynne on 68-30-8952AyvmyQiqrig Work Phone: [phone] Interactionon 74-48-6896Mgpbvazapuwar Authentication Interface Message TextNormalThe [facility] SystemBASIC METABOLIC PANELon 91-50-7091Ckhoy gap [Moles/Vol]11 mmol/YEdgyhr61-38Big [facility] SystemComment on above:Performed By: #### CH8 ####S PATHOLOGY MUCGOVNIYP4291 [place], [address]Zxnsvhw [Mass/Vol]7.9 mg/dLLow8.6-10.3 The [facility] SystemComment on above:Performed By: #### CH8 ####S PATHOLOGY ZMSDNINSGV6437 [place], [address]Nkifnhtq [Moles/Vol]96 mmol/YMee59-261Ppd [facility] SystemComment on above:Performed By: #### CH8 ####S PATHOLOGY TANQNRUTDI1155 [place], [address]SS1 [Moles/Vol]41 mmol/FJdxj26-43Ioh [facility] HospitalroK[facility] SystemComment on above:Performed By: #### CH8 ####[facility] MISDYHAINF4967 [place], [address]Kbxeztgmrs [Mass/Vol]0.63 mg/dLLow0.70-1.30The [facility] Comment on above:Performed By: #### CH8 ####S PATHOLOGY IKNTTNSWBB7227 [place], [address]ODNRWSKTK GFR (CKD-EPI)94 mL/min/1.73sqmNormal>=60The [facility] ([facility] SystemComment on above:Result Comment: 2020 CKD EPI [...] Inclusion of Race in Diagnosing Kidney Disease. [place] Journal of Kidney Diseases 2021;79(2):268-88.e1.2. N Engl J Med 2020 Vol. 385 Issue 19 Pages 1532-2307Performed By: #### CH8 ####[facility] PATH[facility] ORSYMBHCBM0972 [place], [address]Rnftvkc [Mass/Vol]123 mg/nXGxpj98-254 The [facility] SystemComment on above:Performed By: #### CH8 ####[facility] PATHOLOG[facility] ZBPPDYDSPN1412 [place], [address]Repasgbnv [Moles/Vol] 3.3 mmol/LLow3.5-5.0The [facility] ([facility] SystemComment on above:Performed By: #### CH8 ####[facility] PATH[facility] NZHTEPAWRN3877 [place], Sodium [Moles/Vol]145 mmol/CDkqhbi905-452Bez [facility] ([facility] SystemComment on above: Performed By: #### CH8 ####[facility] PATH[facility] VYBJUGWPPI0975 [place], [address]Foap nitrogen [Mass/Vol]15 mg/dLNormal7-25The [facility] ([facility] SystemComment on above:Performed By: #### CH8 ####[facility] PATHOLOGY GPWAGOKUSA6047 [place], [address]VMUMU GAPNormalThe [facility] ([facility] SystemComment on above:Result Comment: Unable to calculate due to elevated KE0Culavitsr By: #### CH8 ####S PATHOLOGY EWZGHNDLSS6610 [place], [address]Iicaizw [Mass/Vol]8.1 mg/dLLow8.6-10.3The [facility] HospitalroK[facility] SystemComment on above:Performed By: #### CH8 ####[facility] PATHOLOG[facility] BYTYJFQEEN9073 [place], [address]Lvrefqjl [Moles/Vol]95 mmol/PJwn42-560Mbi [facility] ([facility] SystemComment on above:Performed By: #### CH8 ####[facility] PATHOLOG[facility] LJQCQGCETX5827 [place], [address]MB2 [Moles/Vol]mmol/BOomx26-71Lgf [facility] SystemComment on above:Performed By: #### CH8 ####[facility] PATHOLOG[facility] GBLLIKBBDU1916 [place], [address]Kkzlrchyzf [Mass/Vol]0.63 mg/dLLow0.70-1.30The [facility] Comment on above:Performed By: #### CH8 ####[facility] PATH[facility] SQLYKKVVVJ4804 [place], [address]HTHOKPUTU GFR (CKD-EPI)94 mL/min/1.73sqmNormal>=60The [facility] SystemComment on above:Result Comment: 2020 CKD EPI [...] Inclusion of Race in Diagnosing Kidney Disease. [place] Journal of Kidney Diseases 2021;79(2):268-88.e1.2. N Engl J Med 1 Vol. 385 Issue 19 Pages 7939-3798Performed By: #### CH8 ####S PATHOLOGY EROENSFTOX0328 [place], [address]Amgdlwn [Mass/Vol]213 mg/vRBceo92-979 The [facility] ([facility] SystemComment on above:Performed By: #### CH8 ####[facility] PATHOLOG[facility] EACQPLENFE[address] [place] [address], [address]Tjbxqwuuh [Moles/Vol] 2.8 mmol/LLow3.5-5.0The [facility] Hospitalro[facility] SystemComment on above:Performed By: #### CH8 ####[facility] PATHOLOG[facility] JLUDORANKF27[address] [place] [address], Sodium [Moles/Vol]147 mmol/UHyyt886-798Atd [facility] HospitalroHealth SystemComment on above: Performed By: #### CH8 ####[facility] PATHOLOGY CDPFDYOUPV9716[address] [place] [address], [address]Dmzy nitrogen [Mass/Vol]17 mg/dLNormal7-25The [facility] ([facility] SystemComment on above:Performed By: #### CH8 ####[facility] PATHOLOGY TKDGSKWTIO15[address] [place] [address], [address]ZFNFS GAPNormalThe [facility] SystemComment on above:Result Comment: Anion Gap cannot be calculated when CO2 is >45.Performed By: #### CH8 ####[facility] PATHOLOG[facility] DADLWBJDLB[address] [place] [address], [address]Sugqbsh [Mass/Vol]8.7 mg/dLNormal8.6-10.3The [facility] Hospitalro[facility] SystemComment on above:Performed By: #### CH8 ####[facility] PATHOLOG[facility] BKJIBWAXIG0939[address] [place] [address], Chloride [Moles/Vol]98 mmol/RVlrrbm84-713Tjq [facility] ([facility] SystemComment on above: Performed By: #### CH8 ####[facility] PATHOLOG[facility] GDETCTBTZN[address] [place] [address], [address]LV1 [Moles/Vol]mmol/TJpip62-63Mkz [facility] HospitalroHealth SystemComment on above:Performed By: #### CH8 ####[facility] PATHOLOG[facility] ELCIBJEDJF9[address] [place] [address], [address]Jbgywsiipb [Mass/Vol]0.64 mg/dLLow 0.70-1.30The [facility] Hospitalro[facility] SystemComment on above:Performed By: #### CH8 ####[facility] PATH[facility] XNIBGNSRBK4481 [place], [address]GLWSKXNKB GFR (CKD-EPI)94 mL/min/1.73sqmNormal>=60The [facility] SystemComment on above: Result Comment: 2020 CKD [...] Inclusion of Race in Diagnosing Kidney Disease. [place] Journal of Kidney Diseases 2021;79(2):268-88.e1.2. N Engl J Med 1 Vol. 385 Issue 19 Pages 6986-0513Performed By: #### CH8 ####[facility] PATHOLOG[facility] DFYARTUXZN5[address] [place] [address], [address]Zltulkq [Mass/Vol]99 mg/jZXtkhgc54-298 The [facility] SystemComment on above:Performed By: #### CH8 ####[facility] PATH[facility] YENVGTDVBA6550 [place], [address]Wzifkmvfo [Moles/Vol] 3.3 mmol/LLow3.5-5.0The [facility] SystemComment on above:Performed By: #### CH8 ####[facility] PATH[facility] GAUQDCXDJR9891 [place], Sodium [Moles/Vol]158 mmol/LCritically mubo519-761Mfd [facility] SystemComment on above:Performed By: #### CH8 ####[facility] PATH[facility] IZDPIDWYUG8801 [place], [address]Pune nitrogen [Mass/Vol]17 mg/dLNormal7-25The [facility] SystemComment on above:Performed By: #### CH8 ####[facility] PATH[facility] XOAVXSBHUF[address] [place] [address], [address]EYPHV GAPNormalThe [facility] SystemComment on above:Result Comment: Unable to calculate the anion gap when the CO2 is >45 mmol/L.Performed By: #### CH8 ####[facility] PATH[facility] OETFAONIXL2399 [place], [address]Rukxrqb [Mass/Vol]8.5 mg/dLLow8.6-10.3The [facility]ro[facility] SystemComment on above:Performed By: #### CH8 ####[facility] PATH[facility] HRMNPYMBIV2074 [place], Chloride [Moles/Vol]99 mmol/VQvgeyw07-082Krc [facility] HospitalroHealth SystemComment on above: Performed By: #### CH8 ####[facility] PATH[facility] IYUDXQAAPY5145 [place], [address]TM2 [Moles/Vol]mmol/LSoag93-11Iqb [facility] HospitalroHealth SystemComment on above:Performed By: #### CH8 ####[facility] PATH[facility] XVBPKEQEUZ5852 [place], [address]Urdqglvimf [Mass/Vol]0.68 mg/dLLow 0.70-1.30The [facility] Hospitalro[facility] SystemComment on above:Performed By: #### CH8 ####[facility] PATH[facility] YOUUOBFRKV6341 [place], [address]YOGRJYDSS GFR (CKD-EPI)92 mL/min/1.73sqmNormal>=60The [facility] SystemComment on above: Result Comment: 2020 CKD [...] Inclusion of Race in Diagnosing Kidney Disease. [place] Journal of Kidney Diseases 2021;79(2):268-88.e1.2. N Engl J Med 1 Vol. 385 Issue 19 Pages 0876-3652Performed By: #### CH8 ####S PATHOLOGY CYKGXMDLDS7047 [place], [address]Kfiqzxa [Mass/Vol]101 mg/dLNormal 74-109The [facility] SystemComment on above:Performed By: #### CH8 ####S PATHOLOGY KDRYTABVAN2206 [place], [address]Zsfksjehf [Moles/Vol]3.1 mmol/LLow3.5-5.0The [facility] Hospitalro[facility] SystemComment on above:Performed By: #### CH8 ####S PATHOLOGY QZNKEZBONS3191 [place], [address]Ombazq [Moles/Vol]156 mmol/LCritically xjfh044-968Utl [facility] HospitalroHealth SystemComment on above:Performed By: #### CH8 ####S PATHOLOGY FBICBNHQQY5039 [place], [address]Nkgu nitrogen [Mass/Vol]17 mg/dLNormal 7-25The [facility] SystemComment on above:Performed By: #### CH8 ####S PATHOLOGY RFASZQUINF[address] [place] [address], [address]AQKEU GAP NormalThe St[facility] HospitalroHealth SystemComment on above:Result Comment: Unable to calculate the anion gap when CO2 is >45 mmol/L.Performed By: #### CHI PRADO CH8 ####S PATHOLOGY AQMYFKBFDE8897 [place], [address]Sgoyujv [Mass/Vol]8.7 mg/dLNormal8.6-10.3The [facility] Hospitalro[facility] SystemComment on above: Performed By: #### CHI PRADO, LLOYD8 ####S PATHOLOGY IDEEKDHXVK8294 [place], [address]Usnnuufs [Moles/Vol]99 mmol/KXgsbxp19-589Ofm [facility] HospitalroHealth SystemComment on above:Performed By: #### CHI PRADO CH8 ####S PATHOLOGY VBWTKQLVVE7104 [place], [address]WE6 [Moles/Vol]mmol/ROrfi02-67Vra [facility] Hospitalro[facility] SystemComment on above:Performed By: #### CHI PRADO, LLOYD8 ####S PATHOLOGY VCUEBZVUFK1658 [place], [address]Tefbfdtqjw [Mass/Vol]0.72 mg/dLNormal0.70-1.30The [facility] Hospitalro[facility] SystemComment on above:Performed By: #### CHI PRADO CH8 ####[facility] PATH[facility] UPPFMVWNRJ7103 [place], [address]EVXEIKHDW GFR (CKD-EPI) 91 mL/min/1.73sqmNormal>=60The [facility] ([facility] SystemComment on above:Result Comment: 2020 CKD EPI [...] Inclusion of Race in Diagnosing Kidney Disease. [place] Journal of Kidney Diseases 2021;79(2):268-88.e1.2. N Engl J Med 2020 Vol. 385 Issue 19 Pages 6874-4404Performed By: #### CHI PRADO CH8 ####[facility] PATH[facility] ASAZMOKBQW1899 [place], [address]Dbowdbj [Mass/Vol]99 mg/dLNormal 74-109The [facility] SystemComment on above:Performed By: #### CHI PRADO CH8 ####[facility] IMKNTDCQHX3380 [place], Potassium [Moles/Vol]3.4 mmol/LLow3.5-5.0The [facility] SystemComment on above: Performed By: #### CHI PRADO CH8 ####[facility] VZOOKJQILY3613 [place], [address]Onmord [Moles/Vol]156 mmol/LCritically xzly130-772 The [facility] SystemComment on above:Performed By: ###CHI VALDEZ CH8 ####[facility] PATH[facility] CATCDCVYNQ2596 [place], [address]Byza nitrogen [Mass/Vol]17 mg/dLNormal7-25The [facility] SystemComment on above:Performed By: #### CHI PRADO CH8 ####[facility] PATH[facility] IYKGYICNHR[address] [place] [address], [address]WETZU GAS, ARTERIALon 26-22-5118KE ABE16.8 mmol/L High-2.0-3.0The [facility]ro[facility] SystemComment on above:Performed By: #### CR BGA ####[facility] PATH[facility] RAGVAFHOUM[address]750[address] [place] [address], [address]PR XGJ190.7 mm TgCavjsx32.0-45.0The [facility]ro[facility] SystemComment on above:Performed By: #### CR BGA ####[facility] PATH[facility] QLDTHZJKII8[address] [place] [address], [address]TJ PHA> 7.137Axiu8.350-7.450The [facility] Hospitalro[facility] SystemComment on above: Performed By: #### CR BGA ####[facility] PATH[facility] REZBCANMGY[address] [place] [address], [address]XB QW3746 mm OnIaox67-947Khl [facility] Comment on above:Performed By: #### CR BGA ####[facility] PATH[facility] JUTRDMOJQJ[address] [place] [address], [address]KPB9 (CATEGORY)60%NormalThe [facility] ([facility] SystemComment on above:Performed By: #### CR BGA ####[facility] PATH[facility] MEJDTBQIKA[address] [place] [address], [address]EQW9 (Bld) [Moles/Vol] 41 mmol/SZwzw02-11Fyz [facility] ([facility] SystemComment on above:Performed By: #### CR BGA ####[facility] PATH[facility] TAILPZGDDA8899[address] [place] [address], MODEVentNormalThe [facility] SystemComment on above:Performed By: #### CR BGA ####[facility] PATH[facility] OFLCRTREXK969[address] [place] [address], Oxygen saturation in Blood99.9 %High95.0-99.0The [facility] SystemComment on above:Performed By: #### CR BGA ####[facility] PATH[facility] IKKBHIMAOY[address] [place] [address], [address]MS ABE24.3 mmol/LHigh-2.0-3.0The [facility] SystemComment on above:Performed By: #### CR BGA ####[facility] PATH[facility] MHATCUZIBZ0209 [place], [address]HS HCO3> 70Dpse32-88Pcy [facility] SystemComment on above:Performed By: #### CR BGA ####[facility] PATH[facility] SJVPIRZDRG788[address] [place] [address], [address]VS ORQ006.5 mm Hg Critically high35.0-45.0The [facility] SystemComment on above:Performed By: #### CR BGA ####[facility] PATHOLOG[facility] WVVGNWEBKE[address] [place] [address], [address]WU PHA7.988Iomq6.350-7.450The [facility] SystemComment on above: Performed By: #### CR BGA ####[facility] PATH[facility] WKNJIQPWWW5719[address] [place] [address], [address]XF PO271 mm DoIbk67-732Zuy [facility] Comment on above:Performed By: #### CR BGA ####[facility] PATH[facility] TWQBDJQYUI989[address] [place] [address], [address]QDI6 (CATEGORY)50%NormalThe [facility] HospitalroHealth SystemComment on above:Performed By: #### CR BGA ####[facility] PATH[facility] YYRVGHKXYM[address] [place] [address], [address]POGOHQMONJzzidjCpb [facility] HospitalroHealth SystemComment on above:Performed By: #### CR BGA ####[facility] PATHOLOG[facility] YCSONUXKCF[address] [place] [address], [address]Dqkbug saturation in Blood95.3 %Xgablm85.0-99.0The [facility] Hospitalro[facility] SystemComment on above:Performed By: #### CR BGA ####[facility] PATH[facility] ZGYKEFECLX[address] [place] [address], [address]BJ ABE23.5 mmol/LHigh-2.0-3.0The [facility]ro[facility] SystemComment on above: Performed By: #### CR BGA ####[facility] PATH[facility] RHWMWOSHID8[address] [place] [address], [address]PL HCO3> 20Zymt24-49Vlc [facility] SystemComment on above:Performed By: #### CR BGA ####[facility] PATH[facility] XUHIGGHXID217[address] [place] [address], [address]SI RYG580.5 mm HgCritically high35.0-45.0The [facility] SystemComment on above:Performed By: #### CR BGA ####[facility] PATHOLOG[facility] NWSMWACQPC[address] [place] [address], [address]VN PHA7.480High 7.350-7.450The [facility] SystemComment on above:Performed By: #### CR BGA ####[facility] PATH[facility] THORYKHGFP[address] [place] [address], [address]KE PO285 mm AxBowwnf42-501Ayb [facility] SystemComment on above:Performed By: #### CR BGA ####[facility] PATH[facility] CVWGWDJPMH[address] [place] [address], [address]NBV8 (CATEGORY)60%NormalThe St[facility] HospitalroHealth SystemComment on above: Performed By: #### CR BGA ####[facility] PATHOLOG[facility] GCWXXRDMON5413[address] [place] [address], [address]OHOBDSUYNEpgpxhQor [address] Hospitalro[facility] SystemComment on above:Performed By: #### CR BGA ####[facility] PATH[facility] QOUWXEDDOG30000[address] [place] [address], [address]Tpkgxa saturation in Blood97.2 %Vnhpdx68.0-99.0The [facility] Hospitalro[facility] SystemComment on above:Performed By: #### CR BGA ####[facility] PATH[facility] BTOBXLUDVK034[address] [place] [address], [address]VK ABE21.8 mmol/LHigh -2.0-3.0The [facility] SystemComment on above:Performed By: #### CR BGA ####[facility] PATH[facility] QFGIHRRZQP[address] [place] [address], [address]HQ HCO3> 45 Rvlv01-57Lht [facility] SystemComment on above:Performed By: #### CR BGA ####[facility] PATHOLOG[facility] OWLUSMUZMJ[address] [place] [address], [address]XF NOE411.6 mm HgCritically high35.0-45.0The [facility] SystemComment on above: Performed By: #### CR BGA ####[facility] PATH[facility] EJBRVVSODM137[address] [place] [address], [address]YR PHA7.408Umjd7.350-7.450The [facility] Comment on above:Performed By: #### CR BGA ####[facility] [id number] [place] [address], [id number] PO298 mm LpSkgbde14-357Kpi [facility] SystemComment on above:Performed By: #### CR BGA ####[facility] MWXWACNCKO[address] [place] [address], [address]HFW2 (CATEGORY)60% NormalThe St. [facility] Hospitalro[facility] SystemComment on above:Performed By: #### CR BGA ####[facility] DAEAETIQMQ[address] [place] [address], [id number] NormalThe [facility] SystemComment on above:Performed By: #### CR BGA ####[facility] NIXYLDEUIT[address] [place] [address], [address]Jmyifz saturation in Blood97.9 %Pirkep83.0-99.0The [facility] ([facility] SystemComment on above: Performed By: #### CR BGA ####[facility] WJLBPYVOTS[address] [place] [address], [id number] BLOOD COUNTon 10-87-4046Jjywxbasgoi distribution width (RBC) [Ratio]16.3 %High11.5-14.5The [facility] SystemComment on above:Performed By: #### CBC ####[facility] WULQIFPNMI[address] [place] [address], [address]Zjcpjdneuy (Bld) [Volume fraction]21.9 %Low 41.0-53.0The [facility] ([facility]oldtHealth SystemComment on above:Performed By: #### CBC ####[facility] PATH[facility] YVDZSLMLFB[address] [place] [address], [address]Arjkoggeqh (Bld) [Mass/Vol]7.1 g/dLLow13.9-16.3The [facility] HospitalroHealth SystemComment on above: Performed By: #### CBC ####[facility] PATHOLOG[facility] NAXQHXSUHB863[address] [place] [address], [address]GJW (RBC) [Entitic mass]32.0 ukNielus08.0-34.0The [facility] HospitalroHealth SystemComment on above:Performed By: #### CBC ####[facility] PATHOLOGY FHZPTXEBMH856[address] [place] [address], [address]CFOX (RBC) [Mass/Vol] 32.5 g/eAMybjny11.0-35.9The [facility] SystemComment on above:Performed By: #### CBC ####[facility] PATHOLOGY BIJBSZLBPQ0699[address] [place] [address], [address]OAY (RBC) [Entitic vol]98 tWXvgoey44-559Ltg [address] HospitalroHealth SystemComment on above:Performed By: #### CBC ####[facility] PATHOLOGY DDWYXWZKCT469[address] [place] [address], [address]Gdjvgziu mean volume (Bld) [Entitic vol]6.2 fLLow 7.5-11.2The [facility] HospitalroHealth SystemComment on above:Performed By: #### CBC ####[facility] PATHOLOG[facility] ABXWXAZUII135[address] [place] [address], [address]99[address]Zlmdvyfjt (Bld) [#/Vol]449 10*3/aCUxqm889-572Gad [facility] HospitalroHealth SystemComment on above: Performed By: #### CBC ####[facility] PATHOLOGY LOEKAPTPQT024[address] [place] [address], [address]IAI (Bld) [#/Vol]2.23 10*6/uLLow4.50-5.90The [facility] HospitalroHealth SystemComment on above:Performed By: #### CBC ####[facility] PATHOLOGY FSBYNKEJPY890306 [place] [address], [address]JCN (Bld) [#/Vol]7.8 10*3/uLNormal4.5-11.5The [facility] HospitalroHealth SystemComment on above:Performed By: #### CBC ####[facility] PATHOLOG[facility] KRFKSBVXQI954[address] [place] [address], Erythrocyte distribution width (RBC) [Ratio]16.8 %High11.5-14.5The [facility] HospitalroHealth SystemComment on above:Performed By: #### CBC ####[facility] PATHOLOG[facility] JGJGMQZWUM4734 [place], [address]Oyucwomyzt (Bld) [Volume fraction]21.3 %Low41.0-53.0The [facility] HospitalroHealth SystemComment on above:Performed By: #### CBC ####[facility] PATHOLOGY DMUEIBWKBR1224[address] [place] [address], Hemoglobin (Bld) [Mass/Vol]7.1 g/dLLow13.9-16.3The [facility] SystemComment on above:Performed By: #### CBC ####[facility] PATH[facility] XGVUWUOYMJ707[address] [place] [address], [address]SFC (RBC) [Entitic mass]32.6 rxMdrnwy93.0-34.0The [facility] HospitalroHealth SystemComment on above:Performed By: #### CBC ####[facility] PATHOLOGY OMBOLTHUBZ[address] [place] [address], [address]TMFA (RBC) [Mass/Vol] 33.2 g/yURwvjuv22.0-35.9The [facility] HospitalroHealth SystemComment on above:Performed By: #### CBC ####[facility] PATH[facility] ROKQMICZXI524[address] [place] [address], [address]DBM (RBC) [Entitic vol]98 mQWetvvb29-217Iyh [facility] HospitalroHealth SystemComment on above:Performed By: #### CBC ####[facility] PATH[facility] VPFBJTZVXQ934006 [place] [address], [address]Oxihwncz mean volume (Bld) [Entitic vol]6.4 fLLow 7.5-11.2The [facility] HospitalroHealth SystemComment on above:Performed By: #### CBC ####[facility] PATH[facility] HXWAXITLTV511[address] [place] [address], [address]Skoapmlcz (Bld) [#/Vol]451 10*3/qPGdlb945-098Zzg [facility] HospitalroHealth SystemComment on above: Performed By: #### CBC ####[facility] PATH[facility] MNEBTCVUIQ807[address] [place] [address], [address]GNI (Bld) [#/Vol]2.17 10*6/uLLow4.50-5.90The [facility] SystemComment on above:Performed By: #### CBC ####[facility] PATHOLOG[facility] IOQMBZIECD13[address] [place] [address], [address]EML (Bld) [#/Vol]8.2 10*3/uLNormal4.5-11.5The MetHealth SystemComment on above:Performed By: #### CBC ####[facility] PATH[facility] PEQAKVSWHZ125[address] [place] [address], Erythrocyte distribution width (RBC) [Ratio]16.7 %High11.5-14.5The [facility] ([facility]oldtHealth SystemComment on above:Performed By: #### CBC ####[facility] PATH[facility] MFZUTZAIFE375[address] [place] [address], [address]Qyznjrdqll (Bld) [Volume fraction]26.2 %Low41.0-53.0The [facility] ([facility]oldtHealth SystemComment on above:Performed By: #### CBC ####[facility] PATH[facility] DQTOHKAIJF224[address] [place] [address], Hemoglobin (Bld) [Mass/Vol]8.6 g/dLLow13.9-16.3The [facility] ([facility]oldtHealth SystemComment on above:Performed By: #### CBC ####[facility] PATH[facility] SXFTKQGSXH885[address] [place] [address], [address]IMN (RBC) [Entitic mass]31.8 hoHjqtgr30.0-34.0The [facility] ([facility]oldtHealth SystemComment on above:Performed By: #### CBC ####[facility] PATHOLOG[facility] JWLKSIRXRK69340[address] [place] [address], [address]LQNE (RBC) [Mass/Vol] 32.9 g/kEAyocmv91.0-35.9The [facility] ([facility]oldtHealth SystemComment on above:Performed By: #### CBC ####[facility] PATH[facility] HHRUWZZOLS[address] [place] [address], [address]WTQ (RBC) [Entitic vol]97 kFRcjwgv23-571Mkr [facility] ([facility]oldtHealth SystemComment on above:Performed By: #### CBC ####[facility] PATH[facility] KFWTGDBPGH14110[address] [place] [address], [address]Omcehcpp mean volume (Bld) [Entitic vol]6.2 fLLow 7.5-11.2The [facility] HospitalroHealth SystemComment on above:Performed By: #### CBC ####[facility] PATHOLOG[facility] TWWURENWPZ5425 [place], [address]Kcajywxjq (Bld) [#/Vol]565 10*3/nYBhsu897-364Pcb [facility] HospitalroHealth SystemComment on above: Performed By: #### CBC ####[facility] PATHOLOG[facility] EKRQYPFDCP579306 [place] [address], [address]IWL (Bld) [#/Vol]2.71 10*6/uLLow4.50-5.90The [facility] HospitalroHealth SystemComment on above:Performed By: #### CBC ####[facility] PATH[facility] HXFTHODNQQ860[address] [place] [address], [address]FCI (Bld) [#/Vol]14.0 10*3/uLHigh4.5-11.5The [facility] HospitalroHealth SystemComment on above:Performed By: #### CBC ####[facility] PATHOLOGY NYHLFGAHDD89280[address] [place] [address], [address]SZ CHEST/ABD/PELVIS W/ CONTRASTon 56-04-4400IT CHEST/ABD/PELVIS W/ CONTRASTNormal The St[facility] HospitalroHealth SystemCTA CHEST PULMONARY EMBOLISM W/on 70-48-6386NBS CHEST PULMONARY EMBOLISM W/NormalThe St. [facility] HospitalroK[facility] SystemConsultson 06-01-2024 [employer] Authentication Interface Message TextNormalThe St. [facility] HospitalroK[facility] System [employer] Authentication Interface Message TextPhysical therapy Attempted to see. Pt just re-intubated and RNs asked to defer treatment until BP is stable Will attempt at later time/date Sharyn Waldron, PTNormalThe St. [facility] HospitalroK[facility] SystemMAGNESIUMon 19-33-1414Udqiijqru [Mass/Vol]2.4 mg/dLNormal1.9-2.7The [facility] HospitalroHealth SystemComment on above:Performed By: #### MG, PHOS, CH8 ####[facility] PATHOLOG[facility] EPFDDKMAUX35450[address] [place] [address], [address]BPNG SCREENon 38-12-8696DMRJ DNA JASMINA+probe Ql (Unsp spec)CMR: No methicillin resistant Staphylococcus aureus isolated.NormalNo methicillin resistant Staphylococcus aureus isolated.The [facility] SystemComment on above: Performed By: #### CMR ####[facility] Es[address]oeuwyv[address] [place], [place]PHOSPHORUSon 22-18-0259Viklsvqsq [Mass/Vol]3.2 mg/dLNormal2.5-5.0 The [facility] SystemComment on above:Performed By: #### MG, RADS, CH8 ####S PATHOLOGY SSEBDMRXVR[address] [place] [address], [address]Icwtsxvekbwu 14-18-9860Dcjxzwgmbvbrw Authentication Interface Message TextNoShelby Memorial Hospital SystemProgress Noteson 21-93-9453Updjhatqjgxbm Authentication Interface Message TextNoShelby Memorial Hospital SystemTranscription Authentication Interface Message TextNoShelby Memorial Hospital SystemTranscription Authentication Interface Message Ciej0530-Ihptojm being prepared for intubation at the bedside. 0846-30 mg etomidate IV push given, 100 mg rocuronium IV push given. 0847-patient being bagged with 100% O2. 0848- #8.0 @ 24 lip, positive color change noted, bilateral breath sounds heard. NormalThe [facility] SystemTranscription Authentication Interface Message Text Dr. Mills notified of critical PCO2 value of 68.5. Dr. Mills read back critical results. New orders not received.NormalThe [facility] System [employer] Authentication Interface Message TextNoShelby Memorial Hospital System RED BLOOD CELL COMPONENTon 64-53-9421IQ ORDER ITEMProduct status info to follow NormalProMedica Toledo Hospital SystemComment on above:Performed By: #### RBO ####S PATHOLOGY FSSDPDRJWD3405 [place], [address]KO ORDER ITEM Product status info to followManhattan Eye, Ear and Throat Hospital SystemComment on above: Performed By: #### RBO ####[facility] MCUZLJGYLW4864 [place], [address]PIS BLOOD CELL UNIT STATUSon 90-19-4602UOBTD PRODUCT [id number] [facility] SystemComment on above:Performed By: #### RBU ####S PATHOLOGY MAYPJEVJAF[address] [place] [address], [address]GTKDF PRODUCT DESCRIPTIONRed Blood CellsNoShelby Memorial Hospital System Comment on above:Performed By: #### RBU ####[facility] PATHOLOGY KCPOXJQMMH8714[address] [place] [address], [address]VOWUR PRODUCT STATUSTransfusedNormal The [facility] SystemComment on above:Performed By: #### RBU ####[facility] PATHOLOGY EAEGILKGFB[address] [place] [address], [address]EUUNP PRODUCT UNIT INFO [id number] [facility] SystemComment on above:Performed By: #### RBU ####[facility] PATHOLOGY ROKMZZHPPH8569[address] [place] [address], BLOOD PRODUCT UNIT [id number] Eye, Ear and Throat Hospital SystemComment on above:Result Comment: A PosPerformed By: #### RBU ####[facility] PATHOLOGY WZCSQJAHEJ194[address] [place] [address], [address]DFIRNENGPO INTERPRETATIONCompatible (E)NormalThe [facility] SystemComment on above:Performed By: #### RBU ####[facility] PATHOLOGY AGOSXQWLIR[address] [place] [address], [address]YQDAA PRODUCT [id number] [facility] SystemComment on above:Performed By: #### RBU ####[facility] PATHOLOGY IKPIVFYNPU012[address] [place] [address], BLOOD PRODUCT DESCRIPTIONRed Blood CellsManhattan Eye, Ear and Throat Hospital SystemComment on above:Performed By: #### RBU ####[facility] PATHOLOGY KSNPRVHCOK013[address] [place] [address], [address]SPRSN PRODUCT STATUSTransfusedNormalThe [facility] SystemComment on above:Performed By: #### RBU ####[facility] PATHOLOGY VXUYVHSEMJ7217[address] [place] [address], [address]LCTUA PRODUCT UNIT INFO [id number] [facility] SystemComment on above:Performed By: #### RBU ####[facility] PATHOLOGY BCOEUUDEKE449[address] [place] [address], BLOOD PRODUCT UNIT [id number] Memorial Hospital SystemComment on above:Result Comment: A PosPerformed By: #### RBU ####S PATHOLOGY NDCRNPHMZK3706 [place], [address]NIDHDFSMTM INTERPRETATIONCompatible (E)NormalThe [facility] SystemComment on above:Performed By: #### RBU ####S PATHOLOGY POTYGHQHQO4974 [place], [address]HYBB AND SCREENon 29-38-5321ZPG and Rh group Nom (Bld)Blood group A Rh(D) positiveNormal The [facility] SystemComment on above:Performed By: #### TS ####S PATHOLOGY JNSUEGRGPX0046 [place], [address]QNUW INTNegativeNormal The [facility] SystemComment on above:Performed By: #### TS ####S PATHOLOGY NYQHQWLTRQ2173 [place], [address]UM ABDOMEN AP 1 VIEWon 59-58-9075CI ABDOMEN AP 1 VIEWNormOhioHealth Grove [facility] SystemXR Abdomen APon 46-69-3334MLYOIQNAZLZ: XR ABDOMEN AP 1 VIEW 06/01/2024 06:34 [...] obstruction, CT can be performed. MACRO: None [facility] HospitalroK[facility] Medical CenterRadiology Study observation (narrative)MetMercy Health Perrysburg HospitalXR Abdomen AP Ordered By: Clare Choe on 44-05-4935MeqruRgzeqi Work Phone: XR CHEST AP OR PA 1 VIEWon 98-53-7373DS CHEST AP OR PA [address] [facility] HospitalroKet[facility] SystemXR CHEST AP OR PA [address] [facility] HospitalroHealth SystemXR CHEST AP OR PA 1 VIEWNormOhioHealth [facility] SystemBASIC METABOLIC PANEL on 31-56-4170Vvchv gap [Moles/Vol]12 mmol/YGdxwek81-45Sce [facility] System Comment on above:Performed By: #### CHI PRADO CH8 ####MHAlfon[facility] PATHOLOGY WXYQRIDPEY2203 [place], [address]Qmleetx [Mass/Vol]8.6 mg/dLNormal8.6-10.3The [facility] SystemComment on above:Performed By: #### MG PHOAlfonzo CH8 ####[facility] DHOMQLCOCE4528 [place], [place], [address]Chloride [Moles/Vol]99 mmol/WTcdpxf71-613Kxn [facility] SystemComment on above:Performed By: #### CHI PRADO CH8 ####[facility] PATHOLOGY UGAFFSLXVG6496 [place], [address]UB7 [Moles/Vol]40 mmol/BChwi83-85Dkl [facility] SystemComment on above:Performed By: #### CHI PRADO CH8 ####[facility] WUMXHQUDBZ6970 [place], [address]Xtqgcnlezx [Mass/Vol]0.77 mg/dLNormal0.70-1.30The [facility] SystemComment on above: Performed By: #### CHI PRADO CH8 ####[facility] PATH[facility] IWHKVJFQBW9431 [place], [address]DHKECKADD GFR (CKD-EPI)89 mL/min/1.73sqmNormal>=60 The [facility] SystemComment on above:Result Comment: 2020 CKD EPI [...] Inclusion of Race in Diagnosing Kidney Disease. [employer] Journal of Kidney Diseases 2021;79(2):26 8-88.e1.2. N Engl J Med 1 Vol. 385 Issue 19 Pages 2774-6766Performed By: #### CHI PRADO CH8 ####[facility] PATHOLOG[facility] RALGVOBMWE0296 [place], [address]Isbihzv [Mass/Vol]113 mg/cMEmle05-084Ror [facility] SystemComment on above:Performed By: #### CHI PRADO CH8 ####[facility] PATHOLOGY IMQOPVNLIM2480 [place], [address]Riabzdyuk [Moles/Vol]3.1 mmol/LLow 3.5-5.0The [facility] SystemComment on above:Performed By: #### CHI PRADO CH8 ####[facility] ZYRXBUTHKF2345 [place], Sodium [Moles/Vol]148 mmol/TDxlq747-126Arv [facility] HospitalroHealth SystemComment on above: Performed By: #### CHI PRADO CH8 ####S PATHOLOGY ILEQYNADPE899[address] [place] [address], [address]Odum nitrogen [Mass/Vol]18 mg/dLNormal7-25The [facility] ([facility]oldtHealth SystemComment on above:Performed By: #### CHI PRADO CH8 ####[facility] PATHOLOG[facility] QOTBEDMGYD[address] [place] [address], [address]GFCIP GAS, ARTERIALon 74-09-1328GG ABE14.8 mmol/LHigh-2.0-3.0The [facility] HospitalroHealth SystemComment on above:Performed By: #### CR BGA ####[facility] PATHOLOGY LEQBUDQTPJ718[address] [place] [address], [address]ZP ABD626.9 mm HcBoai13.0-45.0The [facility] HospitalroHealth SystemComment on above:Performed By: #### CR BGA ####[facility] PATHOLOGY HOOUJYHAUA[address] [place] [address], [address]TT PHA7.490High 7.350-7.450The [facility] HospitalroHealth SystemComment on above:Performed By: #### CR BGA ####[facility] PATHOLOGY USHSOOWDPT476[address] [place] [address], [address]IY PO266 mm MqYje25-202Vya [facility] HospitalroHealth SystemComment on above:Performed By: #### CR BGA ####S PATHOLOGY VYRKJTJDQW617[address] [place] [address], FIO2 (CATEGORY)60%NormalThe St. [facility] HospitalroHealth SystemComment on above:Performed By: #### CR BGA ####S PATHOLOGY PWFOZKMLBS400[address] [place] [address], [address]IEJ6 (Bld) [Moles/Vol]40 mmol/JHjdb94-63Pli [facility] HospitalroHealth SystemComment on above:Performed By: #### CR BGA ####S PATHOLOGY AWWZMPSDSU108[address] [place] [address], [address]LFASLgfiz CanulaNormalThe [address]ro[facility] System Comment on above:Result Comment: 60LPerformed By: #### CR BGA ####[facility] PATHOLOG[facility] ECVFDOBUPS010[address] [place] [address], [address]Spviwd saturation in Blood94.2 %Low95.0-99.0The [facility] SystemComment on above:Performed By: #### CR BGA ####[facility] PATHOLOGY CQDIYBBHTL158[address] [place] [address], [address]MP ABE15.2 mmol/LHigh-2.0-3.0The [facility] SystemComment on above: Performed By: #### CR BGA ####[facility] PATHOLOGY KYVOKGVPXE49380[address] [place] [address], [address]LV ITE760.5 mm IvOsda24.0-45.0The [facility] SystemComment on above:Performed By: #### CR BGA ####[facility] PATHOLOGY OZGNVDXQAH[address] [place] [address], [address]YJ PHA7.471High 7.350-7.450The [facility] SystemComment on above:Performed By: #### CR BGA ####[facility] PATHOLOG[facility] FNQQZBKSQB540[address] [place] [address], [address]SK XL4758 mm ZoXwmg34-886Ecv [facility] SystemComment on above:Performed By: #### CR BGA ####[facility] PATHOLOG[facility] JBYACNZVBA[address] [place] [address], [address]KOI4 (CATEGORY)70%NormalThe St. [facility] HospitalroHealth SystemComment on above: Performed By: #### CR BGA ####[facility] PATHOLOG[facility] GPLNMFTXGW[address] [place] [address], [address]LUY8 (Bld) [Moles/Vol]41 mmol/IZwje66-82Rbu [facility] SystemComment on above:Performed By: #### CR BGA ####[facility] PATHOLOG[facility] KSCZOOLINK[address] [place] [address], [address]AYIQSMQPGYvtunkUej [facility] SystemComment on above:Performed By: #### CR BGA ####[facility] PATHOLOG[facility] NXJRQFJNNE[address] [place] [address], [address]Vhlxwd saturation in Blood99.8 %High95.0-99.0The [facility] SystemComment on above:Performed By: #### CR BGA ####[facility] PATHOLOG[facility] MEUHYJEZBZ[address] [place] [address], [address]VDSXOWSM BLOOD COUNTon 94-10-4582Fcfctyimlxp distribution width (RBC) [Ratio]16.1 %High11.5-14.5The [facility] ([facility]oldtHealth SystemComment on above:Performed By: #### CBC ####[facility] PATHOLOG[facility] ROMKREMOJR[address] [place] [address], [address]Njbgxvumtb (Bld) [Volume fraction]25.2 %Low41.0-53.0The [facility] ([facility]oldtHealth SystemComment on above:Performed By: #### CBC ####[facility] PATHOLOG[facility] ENYXWBYMBI80[address] [place] [address], [address]Usvgbszxxk (Bld) [Mass/Vol]8.2 g/dLLow 13.9-16.3The [facility] ([facility]oldtHealth SystemComment on above:Performed By: #### CBC ####[facility] PATHOLOG[facility] QKAKGFHOSE[address] [place] [address], [address]FKD (RBC) [Entitic mass]31.4 riKkuelp72.0-34.0The [facility] ([facility]oldtHealth SystemComment on above: Performed By: #### CBC ####[facility] PATHOLOG[facility] WJEPZQMVUD[address] [place] [address], [address]OMAF (RBC) [Mass/Vol]32.6 g/kULaegbt10.0-35.9The [facility] ([facility]tHealth SystemComment on above:Performed By: #### CBC ####[facility] PATHOLOG[facility] TVRQCOSWJG477[address] [place] [address], [address]AUO (RBC) [Entitic vol] 96 bJTpprft89-469Bjg [facility] SystemComment on above:Performed By: #### CBC ####[facility] PATHOLOG[facility] VOOOFMQLHN418[address] [place] [address], Platelet mean volume (Bld) [Entitic vol]6.2 fLLow7.5-11.2The [facility] System Comment on above:Performed By: #### CBC ####[facility] PATHOLOG[facility] CFLIWCVQCQ[address] [place] [address], [address]Xsghvpuzp (Bld) [#/Vol]548 10*3/uLHigh 150-400The [facility] HospitalroHealth SystemComment on above:Performed By: #### CBC ####S PATHOLOGY KNZHAFHGBJ80220[address] [place] [address], [address]YKI (Bld) [#/Vol]2.62 10*6/uLLow4.50-5.90The [facility] SystemComment on above:Performed By: #### CBC ####[facility] PATHOLOG[facility] BACAQVRZKP[address] [place] [address], [address]NWV (Bld) [#/Vol]14.9 10*3/uLHigh4.5-11.5The [facility] SystemComment on above:Performed By: #### CBC ####[facility] PATHOLOG[facility] WJAHYFHJEW[address] [place] [address], [address]AW ABDOMEN/PELVIS W/ CONTRASTon 42-54-9684TK ABDOMEN/PELVIS W/ CONTRASTNormalThe [facility] SystemMAGNESIUMon 05-31-2024 Magnesium [Mass/Vol]2.8 mg/dLHigh1.9-2.7The [facility] HospitalroHealth SystemComment on above: Performed By: #### CHI PRADO CH8 ####S PATHOLOGY LHWNQXDWDA7424[address] [place] [address], [address]IRYPUTYSSTdy 71-59-2226Hplwojtbq [Mass/Vol]3.4 mg/dLNormal2.5-5.0The [facility] HospitalroHealth SystemComment on above:Performed By: #### CHI PRADO CH8 ####S PATHOLOGY DERMIEGIFE39450[address] [place] [address], [address]Progress Noteson 26-04-0862Lcstofndaygoc Authentication Interface Message TextNormalThe [facility] SystemXR ABDOMEN AP 1 VIEWon 80-28-1864QW ABDOMEN AP 1 VIEWNormalThe [facility] SystemXR CHEST AP OR PA 1 VIEWon 32-71-3558EI CHEST AP OR PA 1 VIEWNormalThe [facility] SystemXR Chest Single viewon 72-03-6628FJPQFUPRXFY: XR CHEST AP OR PA 1 VIEW [...] DIAGNOSIS: Endotracheal tube assessment ORDERING PROVIDER: MATT BABRA TECHNOLOGISTS NOTE: COMPARISON: XR CHEST AP OR [...] Chest Single viewOrdered By: Marek Rodríguez on 02-71-0440XlbevSdvhdx Work Phone: [phone] Interactionon 26-96-1187Mvvahiljiomuq Authentication Interface Message TextNormalThe [facility] ([facility]ulmboldtTheSedge.org SystemBASIC METABOLIC PANELon 88-71-8432Olhkw gap [Moles/Vol]11 mmol/BNcrllr69-16Bms [facility].org SystemComment on above:Performed By: #### MG, PHOS, CH8 ####[facility] FNQNRWHLIH5388 [place], [address]Ymesans [Mass/Vol]8.2 mg/dLLow8.6-10.3The [employer] SystemComment on above:Performed By: #### CHI PRADO CH8 ####[facility] QRUPSRWUME0846 [place], [address]Chloride [Moles/Vol]102 mmol/TZjgzjc91-499Hpz [facility] SystemComment on above:Performed By: #### CHI PRADO CH8 ####[facility] PATH[facility] DYQXACOIQD1686 [place], [address]RG3 [Moles/Vol]32 mmol/FMmbs95-23Pnc [facility] SystemComment on above:Performed By: #### CHI PRADO CH8 ####[facility] DZIHULGMCS3659 [place], [address]Xkybcdepgw [Mass/Vol]0.66 mg/dLLow0.70-1.30The [facility] SystemComment on above:Performed By: #### CHI PRADO CH8 ####[facility] [id number] [place], [address]PRMVKFISE GFR (CKD-EPI)93 mL/min/1.73sqmNormal>=60 The [facility] SystemComment on above:Result Comment: 2020 CKD EPI [...] Inclusion of Race in Diagnosing Kidney Disease. [place] Journal of Kidney Diseases 2021;79(2):26 8-88.e1.2. N Engl J Med 2020 Vol. 385 Issue 19 Pages 8914-5624Performed By: #### CHI PRADO CH8 ####[facility] [id number] [place], [address]Uypjtmx [Mass/Vol]141 mg/nJZitf59-844Yip [facility] SystemComment on above:Performed By: #### CHI PRADO CH8 ####[facility] [id number] [place], [address]Hrgouidza [Moles/Vol]4.1 mmol/LNormal 3.5-5.0The [facility] SystemComment on above:Performed By: #### CHI PRADO CH8 ####[facility] PATHOLOGY [id number] [place] [address], Sodium [Moles/Vol]141 mmol/PDrsjxe769-709Ggd [facility] SystemComment on above: Performed By: #### CHI PRADO CH8 ####[facility] PATH[facility] IESSCCNQUG[address] [place] [address], [address]Asrh nitrogen [Mass/Vol]16 mg/dLNormal7-25The [facility] HospitalroHealth SystemComment on above:Performed By: #### CHI PRADO CH8 ####[facility] PATHOLOGY ACTZBHYOIU[address] [place] [address], [address]KUEJF GAS, ARTERIALon 33-56-7868TX ABE7.7 mmol/LHigh-2.0-3.0The [facility] HospitalroHealth SystemComment on above:Performed By: #### CR BGA ####[facility] PATHOLOGY PSYZUPXKQF[address] [place] [address], [address]OC UQB157.4 mm LlFsuq81.0-45.0The [facility] HospitalroHealth SystemComment on above:Performed By: #### CR BGA ####[facility] PATHOLOGY EXGTLDUVBP[address] [place] [address], [address]TU PHA7.440Normal 7.350-7.450The [facility] HospitalroHealth SystemComment on above:Performed By: #### CR BGA ####[facility] PATHOLOGY NOLAPNDURF[address] [place] [address], [address]KD ZV0034 mm AcIyvn65-463Nmi [facility] HospitalroHealth SystemComment on above:Performed By: #### CR BGA ####[facility] PATHOLOGY FGJVZSHYZR1218[address] [place] [address], [address]HWJ9 (CATEGORY)70%NormalThe St. [facility]S HospitalroHealth SystemComment on above: Performed By: #### CR BGA ####[facility] PATHOLOGY QPIOYASKTU189[address] [place] [address], [address]SKW7 (Bld) [Moles/Vol]32 mmol/FAuri00-16Dra [facility] HospitalroHealth SystemComment on above:Performed By: #### CR BGA ####[facility] PATHOLOGY QFPDJAPYXL3029[address] [place] [address], [address]MDWAMNYQMBeqbfuVbm [address] HospitalroHealth SystemComment on above:Performed By: #### CR BGA ####[facility] PATHOLOGY EBZJAVNXAL175[address] [place] [address], [address]Jigvwv saturation in Blood99.4 %High95.0-99.0The [facility] HospitalroHealth SystemComment on above:Performed By: #### CR BGA ####[facility] PATHOLOGY WYTHBANOQR[address] [place] [address], [address]HT ABE4.4 mmol/LHigh-2.0-3.0The [facility] HospitalroHealth SystemComment on above: Performed By: #### CR BGA ####[facility] PATHOLOGY OPEBYUQMOX[address] [place] [address], [address]BS JRZ498.7 mm ImWcxj15.0-45.0The [facility] HospitalroHealth SystemComment on above:Performed By: #### CR BGA ####[facility] PATHOLOGY IUXIJHIWMO8[address] [place] [address], [address]OB PHA7.417Normal 7.350-7.450The [facility] ([facility]ulmboldtHealth SystemComment on above:Performed By: #### CR BGA ####[facility] PATHOLOGY AQQEXXOVER[address] [place] [address], [address]DN HV0103 mm NjKhct45-744Mjz [facility] HospitalroHealth SystemComment on above:Performed By: #### CR BGA ####[facility] PATHOLOGY VZFYHFSATH[address] [place] [address], [address]EGC4 (CATEGORY)40%NormalThe St. [facility]S HospitalroHealth SystemComment on above: Performed By: #### CR BGA ####[facility] PATHOLOGY GYIUYMWNRE[address] [place] [address], [address]BQT9 (Bld) [Moles/Vol]29 mmol/PUzax64-06Les St[facility] HospitalroHealth SystemComment on above:Performed By: #### CR BGA ####[facility] PATHOLOGY VXFNAVDGCT0[address] [place] [address] [place], [address]ICSTZaxiVqmrtyMpv [facility] SystemComment on above:Performed By: #### CR BGA ####S PATHOLOGY YNPBFLJUHP6155 [place], [address]Uyshoo saturation in Blood98.7 %Fpwsam13.0-99.0The [facility] SystemComment on above:Performed By: #### CR BGA ####S PATHOLOGY POIXWPFUZB0643 [place], [address]ZALNGZRJVS ALT PATH AH50on 93-77-4933FQRGJOYPQG, ALT PATH, FUNC63 %of normNormal>=46The [facility] SystemComment on above:Order Comment: Resulting Agency Address Site ID: MYM Name: [facility] Address: [address] [place] [address] [place] [address] Director: Jeff Tejada M.D. Ph.D. Result Comment: ADDITIONAL INFORMATION This test was developedand its performance characteristicsdetermined by [facility] in a manner consistent with CLIArequirements. This test has not been cleared or approved bythe U.S. Food and Drug Administration.Performed By: #### CMPAH50 ####[facility] Gdpzdtqtk[address] [place], [place]COMPLETE BLOOD COUNTon 32-84-4836Cnndusxyqzw distribution width (RBC) [Ratio]16.1 %High 11.5-14.5The [facility] SystemComment on above:Performed By: #### CBC ####S PATHOLOGY XCKCSUWGLV4526 [place], [address]Qhtcholybk (Bld) [Volume fraction]27.7 %Low41.0-53.0The [facility] SystemComment on above: Performed By: #### CBC ####S PATHOLOGY HDYFOALEIK[address] [place] [address], [address]Jkopiwttzl (Bld) [Mass/Vol]9.1 g/dLLow13.9-16.3The [facility] SystemComment on above:Performed By: #### CBC ####[facility] PATHOLOGY COSMANVHMW4921 [place], [address]IVF (RBC) [Entitic mass]31.1 nmUlcwor69.0-34.0The [facility] ([facility]oldtHealth SystemComment on above:Performed By: #### CBC ####[facility] PATHOLOGY SEGUACGAFP6324 [place], [address]LEFB (RBC) [Mass/Vol]32.9 g/hCUnonva68.0-35.9The [facility] Comment on above:Performed By: #### CBC ####[facility] PATHOLOGY PDSUXFFRCO7791 [place], [address]RUX (RBC) [Entitic vol]95 fLNormal 80-100The [facility] SystemComment on above:Performed By: #### CBC ####[facility] PATHOLOGY SWPWDBTOSF250[address] [place] [address], [address]Lcnzkddh mean volume (Bld) [Entitic vol]6.1 fLLow7.5-11.2The [facility] ([facility]oldtHealth SystemComment on above:Performed By: #### CBC ####[facility] PATHOLOGY DOFYCMHSHL[address] [place] [address], [address]Zaruoryor (Bld) [#/Vol]588 10*3/jNIejt918-615Atk [facility] SystemComment on above:Performed By: #### CBC ####[facility] PATHOLOGY HXYSEWYFZK203[address] [place] [address], [address]SRF (Bld) [#/Vol]2.93 10*6/uLLow4.50-5.90The [facility] SystemComment on above:Performed By: #### CBC ####[facility] PATH[facility] QKCEMIGEGI[address] [place] [address], [address]PEI (Bld) [#/Vol]15.2 10*3/uLHigh4.5-11.5The [facility] SystemComment on above: Performed By: #### CBC ####[facility] PATHOLOGY TBLICKSSVX18[address] [place] [address], [address]SFNATBJUSay 25-88-0024Mnveojdeb [Mass/Vol]1.9 mg/dLNormal1.9-2.7The [facility] SystemComment on above:Performed By: #### CHI PRADO CH8 ####[facility] VWEFCXGBBK4565 [place], [place], [address]PHOSPHORUSon 70-61-3781Supxflgxe [Mass/Vol]3.0 mg/dLNormal2.5-5.0The [facility] SystemComment on above:Performed By: #### CHI PRADO CH8 ####[facility] DPQPXZZONO0517 [place], [address]Nzbggiud Noteson 67-77-1120Qpinrbhcuamgz Authentication Interface Message TextNormalThe [facility] SystemTranscription Authentication Interface Message TextNormElyria Memorial Hospitale [facility] SystemXR ABDOMEN AP 1 VIEWon 58-70-3382RY ABDOMEN AP [address] [facility] HospitalroHealth SystemXR CHEST AP OR PA 1 VIEWon 08-34-5139YZ CHEST AP OR PA [address] [facility] Hospitalro[facility] SystemXR Chest Single viewon 32-45-9555TONRQUJUBEI: XR CHEST AP OR PA 1 VIEW [...] Chest Single viewOrdered By: Vignesh Higuera on 83-03-2699SrmsnEmdegt Work Phone: [phone] Interactionon 28-56-8919Lzeaawvilsmud Authentication Interface Message TextNormalThe [facility] SystemBASIC METABOLIC PANELon 27-27-9800Urvqe gap [Moles/Vol]10 mmol/QNtgwym45-29Kzz [facility] SystemComment on above:Performed By: #### MG VERDE PHOS, VANC R ####[facility] RKVSFZKZXT9021 [place], [address]Tiiuesp [Mass/Vol]8.4 mg/dLLow8.6-10.3The [facility] HospitalroHealth SystemComment on above:Performed By: #### MG VERDE PHOS, VANC R ####[facility] MFUBOXPBCJ8614 [place], [address]Xtbrlgwq [Moles/Vol]102 mmol/IVifvsm16-194Xps [facility] SystemComment on above:Performed By: #### MG VERDE PHOS, VANC R ####[facility] QQPYEEHEZC5878 [place], [address]MD4 [Moles/Vol]34 mmol/JRwcc06-60Tzz [facility] ([facility]oldtHealth SystemComment on above:Performed By: #### MG VERDE PHOS, VANC R ####[facility] JGJWZJMFCQ1647 [place], [address]Zbogokxfxe [Mass/Vol]0.66 mg/dLLow0.70-1.30The [facility] HospitalroHealth SystemComment on above:Performed By: #### MG VERDE PHOS, VANC R ####[facility] GZAWSJQJOM0110 [place], ESTIMATED GFR (CKD-EPI)93 mL/min/1.73sqmNormal>=60The [facility] HospitalroHealth SystemComment on above:Result Comment: 2020 CKD EPI [...] Inclusion of Race in Diagnosing Kidney Disease. [place] Journal of Kidney Diseases 2021;79(2):268-88.e1.2. N Engl J Med 2020 Vol. 385 Issue 19 Pages 8444-6688Performed By: #### MG VERDE PHOS, VANC R ####[facility] WTHVXJXPYA5916 [place], [address]Llftstj [Mass/Vol]89 mg/gPZacorh14-578Nzc [facility] SystemComment on above:Performed By: #### MG VERDE PHOS, VANC R ####[facility] MKGPIWLXUN5170 [place], [address]Fuamahtso [Moles/Vol]4.1 mmol/LNormal3.5-5.0The [facility] HospitalroHealth SystemComment on above:Performed By: #### MG VERDE PHOS, VANC R ####[facility] WVRJZJWOLH2564 [place], Sodium [Moles/Vol]142 mmol/BIlmbji237-349Lyf [facility] SystemComment on above: Performed By: #### MG VERDE PHOS, VANC R ####[facility] VJSBDBFNYQ9079 [place], [address]Uaco nitrogen [Mass/Vol]20 mg/dLNormal 7-25The [facility] SystemComment on above:Performed By: #### CH8, MGCHI VANC R ####[facility] PATHOLOGY WAJGQHQMHY[address] [place] [address], [address]XZNDN GAS, ARTERIALon 33-32-4818AN ABE9.0 mmol/LHigh-2.0-3.0The [facility] SystemComment on above:Performed By: #### CR BGA ####S PATHOLOGY UEUWWWFFQD4224[address] [place] [address], [address]EN QNC954.4 mm HgHigh 35.0-45.0The [facility] SystemComment on above:Performed By: #### CR BGA ####[facility] PATHOLOGY GVGAVPWAOC97[address] [place] [address], [address]KG PHA7.250Znmz3.350-7.450The [facility] SystemComment on above:Performed By: #### CR BGA ####[facility] PATHOLOGY EIVUUFSWCA743[address] [place] [address], [address]YX PO266 mm MuZlq01-677Die [facility] SystemComment on above: Performed By: #### CR BGA ####[facility] PATHOLOGY VVNBRZISWC[address] [place] [address], [address]KIE8 (CATEGORY)35%NormalThe [facility] System Comment on above:Performed By: #### CR BGA ####[facility] PATHOLOGY XKFFERTSCA[address] [place] [address], [address]DAG6 (Bld) [Moles/Vol]33 mmol/LHigh The [facility] SystemComment on above:Performed By: #### CR BGA ####[facility] PATHOLOGY HKYYYXIEFX[address] [place] [address], [address]IAMCSqox NormalThe [facility] SystemComment on above:Performed By: #### CR BGA ####S PATHOLOGY JPHRFELCQN1924[address] [place] [address], [address]Ahxesp saturation in Blood94.9 %Low95.0-99.0The [facility] SystemComment on above: Performed By: #### CR BGA ####[facility] OFVEEWEJEB49340[address] [place] [address], [address]CAEFHNCA BLOOD COUNTon 51-26-6587Oidvkjdyecx distribution width (RBC) [Ratio]15.5 %High11.5-14.5The [facility] ([facility]oldtHealth SystemComment on above:Performed By: #### CBC ####[facility] PATHOLOGY OENMHZMRQV164[address] [place] [address], [address]Gqqvamiapq (Bld) [Volume fraction]25.0 %Low 41.0-53.0The [facility] HospitalroHealth SystemComment on above:Performed By: #### CBC ####[facility] PATHOLOGY XGVABTTWBK[address] [place] [address], [address]Ognfysqvyz (Bld) [Mass/Vol]8.2 g/dLLow13.9-16.3The [facility] ([facility]oldtHealth SystemComment on above: Performed By: #### CBC ####[facility] PATHOLOGY FKPCEVIWBZ[address] [place] [address], [address]XRV (RBC) [Entitic mass]31.5 joWouorr80.0-34.0The [facility] ([facility]oldtHealth SystemComment on above:Performed By: #### CBC ####[facility] PATHOLOGY TFVVVXPBCV[address] [place] [address], [address]MFRZ (RBC) [Mass/Vol] 32.8 g/hNJawsgq92.0-35.9The [facility] ([facility]oldtHealth SystemComment on above:Performed By: #### CBC ####[facility] PATHOLOG[facility] XAZFJIZMRI[address] [place] [address], [address]PZC (RBC) [Entitic vol]96 uOJqjike14-826Xdx [facility] ([facility]oldtHealth SystemComment on above:Performed By: #### CBC ####[facility] PATHOLOGY OBAQAPJAZL984[address] [place] [address], [address]Eitzllrb mean volume (Bld) [Entitic vol]6.2 fLLow 7.5-11.2The [facility] ([facility]oldtHealth SystemComment on above:Performed By: #### CBC ####[facility] PATHOLOGY YNFFQESVFS839[address] [place] [address], [address]Wwwtdahns (Bld) [#/Vol]517 10*3/rOMnoe119-125Ekw [facility] HospitalroHealth SystemComment on above: Performed By: #### CBC ####S PATHOLOGY GKSKXKQGQU[address] [place] [address], [address]EVK (Bld) [#/Vol]2.61 10*6/uLLow4.50-5.90The [facility] HospitalroHealth SystemComment on above:Performed By: #### CBC ####S PATHOLOGY YGBFELBEMK[address] [place] [address], [address]VQZ (Bld) [#/Vol]9.0 10*3/uLNormal4.5-11.5The [facility] HospitalroHealth SystemComment on above:Performed By: #### CBC ####[facility] PATHOLOGY EUHPZSPKCH[address] [place] [address], CT ABDOMEN/PELVIS W/ CONTRASTon 48-65-1719FM ABDOMEN/PELVIS W/ CONTRASTNormalThe St[facility] HospitalroK[facility] SystemMAGNESIUMon 44-00-8282Lksvkyhsf [Mass/Vol]2.2 mg/dLNormal 1.9-2.7The [facility] ([facility] SystemComment on above:Performed By: #### AMMON, MG, PHOS, LAURI R ####S PATHOLOGY TBUWHZNIXV034[address] [place] [address], [address]AYGGKTHQJDcg 11-27-5893Xgmzmqfqg [Mass/Vol]3.0 mg/dLNormal2.5-5.0The [facility] HospitalroHealth SystemComment on above:Performed By: #### AMMON, MG, PHOS, VANC R ####S PATHOLOGY CXTROLIOUI477[address] [place] [address], Progress Noteson 34-88-2717Maeprqsahqmjt Authentication Interface Message Text NormalThe St[facility] HospitalroHealth SystemTranscription Authentication Interface Message Text NormalThe St. [facility] HospitalroKet[facility] SystemVANCOMYCIN RANDOMon 29-79-0563NLRE R10.4 ug/mLNormal 5.0-40.0The [facility] ([facility] SystemComment on above:Performed By: #### AMMON, MG, PHOS, VANC R ####[facility] CCUCQYKPYA4571 [place], [address]FJ CHEST AP OR PA 1 VIEWon 62-65-3983HM CHEST AP OR PA 1 VIEWMan[facility], [facility] SystemXR Chest Single viewon 61-48-4877QHBKNPDDMCD: XR CHEST AP OR PA 1 VIEW [...] pulmonary findings, as detailed. [facility] Study observation (narrative)[facility] CenterXR Chest Single viewOrdered By: Vignesh Davida on 30-84-9642KtfirCzwkuz Work Phone: [phone] Interactionon 73-44-3478Pmyftxmlxcvkm Authentication Interface Message TextNormalThe [facility] (HulmboldtTheSedge.org SystemBASIC METABOLIC PANELon 91-91-3206Yvhjv gap [Moles/Vol]8 mmol/WVql80-13Xat [facility] System Comment on above:Performed By: #### AMMON PRADO, RADS ####[facility] NTOFIGHXYI6284 [place], [address]Keywepp [Mass/Vol]8.4 mg/dLLow8.6-10.3The [facility] SystemComment on above:Performed By: #### LLOYD PRADO8, PHOS ####[facility] AVTEUZWFNV9507 [place], [place], [address]Chloride [Moles/Vol]106 mmol/QGlfaqj56-635Xdj [facility] SystemComment on above:Performed By: #### MGAMMON, PHOS ####[facility] VVUJYZRYYN4912 [place], [address]RT6 [Moles/Vol]34 mmol/UKmqo57-41Dtv [facility] SystemComment on above:Performed By: #### MG CH8, PHOS ####[facility] ZFPXOBSEQC9370 [place], [address]Gtxfyxacmf [Mass/Vol]0.68 mg/dLLow0.70-1.30The [facility] SystemComment on above:Performed By: #### MG, CH8, PHOS ####[facility] SULVNKJJZL5843 [place], [address]UGFARCQWC GFR (CKD-EPI)92 mL/min/1.73sqmNormal>=60 The [facility] SystemComment on above:Result Comment: 2020 CKD EPI [...] Inclusion of Race in Diagnosing Kidney Disease. Nigerian Journal of Kidney Diseases 2021;79(2):26 8-88.e1.2. N Engl J Med 2020 Vol. 385 Issue 19 Pages 2618-3368Performed By: #### AMMON PRADO PHOS ####[facility] UNMGTLUTAT5653 [place], [address]Nxvptnx [Mass/Vol]108 mg/yYBnovfx52-270Vlu [facility] HospitalroHealth SystemComment on above:Performed By: #### AMMON PRADO PHOS ####[facility] GGHFNMGXDO2682 [place], [address]Odyjxlmbx [Moles/Vol]4.3 mmol/LNormal 3.5-5.0The [facility] HospitalroHealth SystemComment on above:Performed By: #### AMMON PRADO, CHI ####S PATHOLOGY JQEQRFONKK[address] [place] [address], Sodium [Moles/Vol]144 mmol/ZBartwx675-408Yjz [facility] HospitalroHealth SystemComment on above: Performed By: #### AMMON PRADO, CHI ####[facility] DHPEFEODJF0255 [place], [address]Gsgg nitrogen [Mass/Vol]24 mg/dLNormal7-25The [facility] SystemComment on above:Performed By: #### AMMON PRADO, RADS ####[facility] XOHPAJTXWH5572 [place], [address]CIPCJ GAS, ARTERIALon 44-71-5966QC ABE6.1 mmol/LHigh-2.0-3.0The [facility] SystemComment on above:Performed By: #### CR BGA ####[facility] XVNAHVZOVO6993 [place], [address]DW AUY785.1 mm RmPhmq01.0-45.0The [facility] SystemComment on above:Performed By: #### CR BGA ####[facility] TNCBUMUSMR4792 [place], [address]UL PHA7.363Normal 7.350-7.450The [facility] HospitalroHealth SystemComment on above:Performed By: #### CR BGA ####[facility] PATHOLOG[facility] UPIGVXKKAK87[address] [place] [address], [address]PO QQ2405 mm IhEgnn99-320Rzf [facility] HospitalroHealth SystemComment on above:Performed By: #### CR BGA ####[facility] PATHOLOGY BEYKPCTRER90[address] [place] [address], [address]RPE5 (CATEGORY)60%NormalThe St. [facility] HospitalroHealth SystemComment on above: Performed By: #### CR BGA ####[facility] PATHOLOGY REUAEKHCLP[address] [place] [address], [address]OTX0 (Bld) [Moles/Vol]32 mmol/SHmdl43-81Flo [facility] HospitalroHealth SystemComment on above:Performed By: #### CR BGA ####[facility] PATHOLOGY EWPFBZAWSX[address] [place] [address], [address]GQQAWljbRmiktwBdr [address] HospitalroHealth SystemComment on above:Performed By: #### CR BGA ####[facility] PATHOLOG[facility] FGXWETJMOS[address] [place] [address], [address]Bffiuk saturation in Blood99.6 %High95.0-99.0The [facility] HospitalroHealth SystemComment on above:Performed By: #### CR BGA ####[facility] PATHOLOGY UIZIEVLRHQ4419[address] [place] [address], [address]FRPYNPDR BLOOD COUNTon 48-91-4123Vewepiazprz distribution width (RBC) [Ratio]15.9 %High11.5-14.5The [facility] ([facility]oldtHealth SystemComment on above:Performed By: #### CBC ####[facility] PATHOLOGY GPBUNBMDYV[address] [place] [address], [address]Bxsibgghiq (Bld) [Volume fraction]25.7 %Low41.0-53.0The [facility] HospitalroHealth SystemComment on above:Performed By: #### CBC ####[facility] PATHOLOGY YOJZYBNKTC815[address] [place] [address], [address]Xnjnifdxsx (Bld) [Mass/Vol]8.4 g/dLLow 13.9-16.3The [facility] HospitalroHealth SystemComment on above:Performed By: #### CBC ####[facility] PATHOLOGY ALMLTSLCYS1151 [place], [address]RBW (RBC) [Entitic mass]31.7 bdWozeye90.0-34.0The [facility] HospitalroHealth SystemComment on above: Performed By: #### CBC ####[facility] PATHOLOGY IDWMSBZDKR[address] [place] [address], [address]IGUT (RBC) [Mass/Vol]32.6 g/dXYeqewe69.0-35.9The [facility] HospitalroHealth SystemComment on above:Performed By: #### CBC ####[facility] PATHOLOG[facility] UMYQMWLJKK[address] [place] [address], [address]FZC (RBC) [Entitic vol] 97 lASvzkdf03-183Cth [facility] SystemComment on above:Performed By: #### CBC ####[facility] PATHOLOG[facility] ZYKOIYJXIA[address] [place] [address], Platelet mean volume (Bld) [Entitic vol]6.0 fLLow7.5-11.2The [facility]roK[facility] System Comment on above:Performed By: #### CBC ####[facility] PATHOLOGY OXWEDKIOAE[address] [place] [address], [address]Cyaphsptr (Bld) [#/Vol]527 10*3/uLHigh 150-400The [facility] SystemComment on above:Performed By: #### CBC ####[facility] PATHOLOG[facility] NLFGZBZCJQ[address] [place] [address], [address]LIU (Bld) [#/Vol]2.64 10*6/uLLow4.50-5.90The [facility] SystemComment on above:Performed By: #### CBC ####[facility] PATHOLOGY OKKBGSCVTU[address] [place] [address], [address]VAR (Bld) [#/Vol]10.1 10*3/uLNormal4.5-11.5The [facility] System Comment on above:Performed By: #### CBC ####[facility] PATHOLOG[facility] DMVZOEWUIV[address] [place] [address], [address]HFNLSZ ACIDon 72-97-9773VW LACT0.8 mmol/LNormal0.5-1.6The [facility] SystemComment on above:Performed By: #### LACT ####[facility] EZBQJYGUTS9930 [place], MAGNESIUMon 06-47-9439Cpzkrfqlz [Mass/Vol]2.3 mg/dLNormal1.9-2.7The [facility] SystemComment on above:Performed By: #### MG, CH8, PHOS ####[facility] EGMKDKEYVU2184 [place], [address]IABRASTCBFso 05-28-2024 Phosphate [Mass/Vol]3.7 mg/dLNormal2.5-5.0[facility] SystemComment on above:Performed By: #### MG, CH8, PHOS ####[facility] [id number] [place], [address]Ggycygtccthl [id number] Authentication Interface Message TextNoS[facility] SystemProgress Notes on [id number] Authentication Interface Message TextNoS[facility] SystemTranscription Authentication Interface Message TextSocial Work ICU Note Aware pt is intubated. Will assist with disposition planning pending pt's hospital course and medical team recs when pt is more medically appropriate. Katie Puri, LIAMA, LISWNoShelby Memorial Hospital SystemRESPIRATORY CULTURE, MISC on [id number] CULTURE, MISCC RESP: No Growth GRAM STAIN: 3+ Polymorphonuclear Leukocytes No Squamous Epithelial Cells seen No organisms seenManhattan Eye, Ear and Throat Hospital SystemComment on above:Performed By: #### C RESP ####[facility] [address] [place], [place] CHEST AP OR PA 1 VIEWon [id number] CHEST AP OR PA 1 VIEWNoShelby Memorial Hospital SystemXR Chest Single viewon [id number]: XR CHEST AP OR PA 1 VIEW [...] the right and postsurgical changes MACRO: None RADIOLOGYMarek Henderson MD - 05/28/2024 EXAMINATION: XR CHEST AP [...] Chest Single viewOrdered By: Marek Driver on [id number] Work Phone: b TYPE NATRIURETIC PEPTIDEon [id number] peptide B (Bld) [Mass/Vol]28.0 pg/mLNormal<100.0[facility] SystemComment on above:Performed By: #### BPL ####[facility] PATHOLOGY BONBNVJWWO2982 [place], [address]UHBDP METABOLIC PANELon 06-84-1940Pytsx gap [Moles/Vol]8 mmol/OGew60-81Yln [facility] SystemComment on above:Performed By: #### CH8 MG PHOAlfonzo ####[facility] PATH[facility] SGMSXODPDF6247 [place], [address]Edwwqzl [Mass/Vol]8.7 mg/dLNormal8.6-10.3The [facility] System Comment on above:Performed By: #### CHIvis MG, PHOAlfonzo ####[facility] PATHOLOGY BNSMIBLXXZ5437 [place], [address]Faugpxmb [Moles/Vol]106 mmol/RYkkaft91-071Tkr [facility] SystemComment on above:Performed By: #### CHIvis MG, PHOS ####[facility] PATHOLOGY PEJGHTZCJN1229 [place], [address]XN7 [Moles/Vol]34 mmol/WXplg62-23Ndh [facility] SystemComment on above:Performed By: #### CH8 MG, PHOS ####[facility] PATHOLOGY FRRNGFGUSE8840 [place], [address]Pcacpkqujf [Mass/Vol]0.72 mg/dLNormal 0.70-1.30The [facility] SystemComment on above:Performed By: ##MG GREY PHOS ####[facility] PATHOLOGY XILVEOJPUT1423 [place], ESTIMATED GFR (CKD-EPI)91 mL/min/1.73sqmNormal>=60The [facility] SystemComment on above:Result Comment: 2020 CKD EPI [...] Inclusion of Race in Diagnosing Kidney Disease. Nigerian Journal of Kidney Diseases 202;79(2):268-88.e1.2. N Engl J Med 1 Vol. 385 Issue 19 Pages 1658-0195Performed By: ###MG BENAVIDES PHOS ####[facility] PATHOLOGY NMMNKJBCDL8014 [place], [address]Lgebmfl [Mass/Vol]113 mg/rTNnmd11-314Rdw [facility] SystemComment on above:Performed By: ###MG BENAVIDES PHOS ####[facility] PATHOLOGY UCABRHHMDU2631 [place], [place], [address]Potassium [Moles/Vol]4.8 mmol/LNormal3.5-5.0The [facility] System Comment on above:Performed By: ###MG BENAVIDES PHOS ####[facility] PATHOLOGY VYFUAHKOTM3351 [place], [address]Jsqmxu [Moles/Vol]143 mmol/SFdrwsl618-799Avk [facility] SystemComment on above:Performed By: #MG BRYAN PHOS ####[facility] PATHOLOGY RKWRMNWKDF3212 [place], [address]Yjyr nitrogen [Mass/Vol]26 mg/dLHigh7-25The [facility] SystemComment on above:Performed By: ##MG GREY PHOS ####[facility] PATHOLOGY XGJLQDLNIL3466 [place], [address]Kveuv gap [Moles/Vol]10 mmol/LNormal 10-20The [facility] ([facility] SystemComment on above:Performed By: #### MG CHI, CH8 ####S PATHOLOGY TCJNIKOVEA9538 [place], Calcium [Mass/Vol]9.0 mg/dLNormal8.6-10.3The [facility] SystemComment on above: Performed By: #### CHI MG, CH8 ####S PATHOLOGY SSMAKSMWKQ5264 [place], [address]Zjedfcmu [Moles/Vol]101 mmol/SAoulhb97-547Dqp [facility] ([facility] SystemComment on above:Performed By: #### MG CHI, CH8 ####S PATHOLOGY EDKVTELYEO9263 [place], [address]TV6 [Moles/Vol]38 mmol/IGwvn38-72Eiy [facility]ro[facility] SystemComment on above:Performed By: #### CHI MG, CH8 ####S PATHOLOGY KNPJSCVMLG8342 [place], [address]Kjfavdcnbb [Mass/Vol]0.66 mg/dLLow0.70-1.30The [facility] SystemComment on above:Performed By: #### CHI MG, CH8 ####S PATHOLOGY XMSPCSZOMH0608 [place], [address]GTSPBITNI GFR (CKD-EPI)93 mL/min/1.73sqmNormal>=60The [facility] SystemComment on above: Result Comment: 2020 CKD [...] Inclusion of Race in Diagnosing Kidney Disease. Nigerian Journal of Kidney Diseases 2021;79(2):268-88.e1.2. N Engl J Med 2021 Vol. 385 Issue 19 Pages 0980-1966Performed By: #### MG CHI, CH8 ####[facility] PATHOLOGY XODTHGUXUG0391 [place], [address]Moshhhk [Mass/Vol]132 mg/rPVgif90-969Ioi [facility] SystemComment on above:Performed By: #### MG CHI, CH8 ####[facility] PATHOLOGY AFNSHMGZMZ[address] [place] [address], Potassium [Moles/Vol]4.0 mmol/LNormal3.5-5.0The [facility] System Comment on above:Performed By: #### MG CHI, CH8 ####S PATHOLOGY LLBIGRPFEZ2212[address] [place] [address], [address]Polzll [Moles/Vol]145 mmol/QTztjkt825-054Wvq [facility] SystemComment on above:Performed By: #### MG CHI, CH8 ####S PATHOLOGY GTROHASMAI05[address] [place] [address], [address]Xspy nitrogen [Mass/Vol]24 mg/dLNormal7-25The [facility] System Comment on above:Performed By: #### MG CHI, CH8 ####S PATHOLOGY TXLWUVDBUS358[address] [place] [address], [address]WEHDS CULTUREon 45-35-8478Kqojxbii identified Cx Nom (Bld)C BLOOD: No GrowthNormalThe [facility] SystemComment on above:Performed By: #### C BLOOD ####[facility] Byuvyzymd[address] [place], [place] [phone] identified Cx Nom (Bld)C BLOOD: No GrowthNormalThe [facility] SystemComment on above:Performed By: #### C BLOOD ####[facility] Tteejxday[address] [place], [place] [address]BLOOD GAS, ARTERIALon 52-95-2097JO ABE6.9 mmol/LHigh-2.0-3.0The [facility] SystemComment on above:Performed By: #### CR BGA ####S PATHOLOGY TCCIVYKMXV[address] [place] [address], [address]TT EEK589.5 mm ImNmqd00.0-45.0The [facility] SystemComment on above:Performed By: #### CR BGA ####[facility] PATHOLOGY OSJTBEUUMZ057[address] [place] [address], [address]KS PHA7.355Normal 7.350-7.450The [facility] SystemComment on above:Performed By: #### CR BGA ####[facility] PATHOLOGY XSPMHBYIOE035[address] [place] [address], [address]RM PO284 mm RlBorrsz71-790Ptj [facility] SystemComment on above:Performed By: #### CR BGA ####[facility] PATHOLOGY KAVREYIBRH[address] [place] [address], [address]BVZ2 (CATEGORY)60%NormalThe [facility] SystemComment on above: Performed By: #### CR BGA ####[facility] PATHOLOGY YWIQKCEZJJ[address] [place] [address], [address]DJC7 (Bld) [Moles/Vol]33 mmol/XQedf94-18Zrl [facility] SystemComment on above:Performed By: #### CR BGA ####[facility] PATHOLOGY VBPSVOYVTT2418[address] [place] [address], [address]ZIV[address]CFpxwujVuq [address] Hospitalro[facility] SystemComment on above:Performed By: #### CR BGA ####[facility] PATHOLOGY DNQQHDYDQI680[address] [place] [address], [address]Mupatk saturation in Blood96.8 %Ngrnbf93.0-99.0The [facility] Hospitalro[facility] SystemComment on above:Performed By: #### CR BGA ####[facility] PATHOLOGY VHOMJRNMXE[address] [place] [address], [address]WQ ABE7.2 mmol/LHigh-2.0-3.0The [facility] SystemComment on above: Performed By: #### CR BGA ####[facility] PATHOLOGY MCAPXTWHDR0437[address] [place] [address], [address]NN SSL671.3 mm FzTprh35.0-45.0The [facility] SystemComment on above:Performed By: #### CR BGA ####[facility] PATHOLOGY JDHHASOSUA9050 [place], [address]PV PHA7.357Normal 7.350-7.450The [facility] Hospitalro[facility] SystemComment on above:Performed By: #### CR BGA ####[facility] PATHOLOGY IHBMEJHGWI[address] [place] [address], [address]OO PO277 mm NoLps64-685Ohx [facility] Hospitalro[facility] SystemComment on above:Performed By: #### CR BGA ####[facility] PATHOLOGY FTISHDNKNI[address] [place] [address], FIO2 (CATEGORY)>[address] [facility] Hospitalro[facility] SystemComment on above:Result Comment: 6LPerformed By: #### CR BGA ####[facility] PATHOLOGY ELKBFCHKVM[address] [place] [address], [address]PME0 (Bld) [Moles/Vol]34 mmol/LHigh 21-28The [facility] Hospitalro[facility] SystemComment on above:Performed By: #### CR BGA ####[facility] PATHOLOGY JTIASAGSSJ[address] [place] [address], [address]VCVZZROJJ NormalThe [facility] HospitalroHealth SystemComment on above:Result Comment: 18/06Performed By: #### CR BGA ####[facility] PATHOLOGY NSLRXPSPFS8225[address] [place] [address], [address]Tchsnt saturation in Blood95.2 %Tfxkkk94.0-99.0The [facility] Comment on above:Performed By: #### CR BGA ####[facility] PATHOLOGY OIEOPHGUWW97[address] [place] [address], [address]GV ABE5.4 mmol/LHigh-2.0-3.0The [facility] SystemComment on above:Performed By: #### CR BGA ####[facility] PATHOLOGY TWKPUAHPWP[address] [place] [address], [address]XN LLB737.7 mm HgHigh 35.0-45.0The [facility] Hospitalro[facility] SystemComment on above:Performed By: #### CR BGA ####[facility] PATHOLOGY GLNYVPYNEF[address] [place] [address], [address]WO PHA7.023Ure2.350-7.450The [facility] SystemComment on above:Performed By: #### CR BGA ####[facility] PATHOLOGY ETPZPCNBAT[address] [place] [address], [address]GG PO270 mm JuMbm96-786Tvs [facility] SystemComment on above: Performed By: #### CR BGA ####[facility] PATHOLOGY VMBVPFUEGP605[address] [place] [address], [address]IAT2 (CATEGORY)>5 LPMNormalThe [facility] Comment on above:Performed By: #### CR BGA ####[facility] PATHOLOGY XIDGPDIQIM[address] [place] [address], [address]LEN8 (Bld) [Moles/Vol]32 mmol/LHigh 21-28The [facility] SystemComment on above:Performed By: #### CR BGA ####[facility] PATHOLOGY DEGGIPNLEP[address] [place] [address], [address]ZEPNRBARV NormalThe [facility] Hospitalro[facility] SystemComment on above:Performed By: #### CR BGA ####[facility] PATHOLOGY GGZQAHHZDL024[address] [place] [address], [address]Geqpib saturation in Blood92.7 %Low95.0-99.0The [facility] SystemComment on above: Performed By: #### CR BGA ####[facility] PATHOLOGY FFMOBYDEGB[address] [place] [address], [address]FR ABE7.9 mmol/LHigh-2.0-3.0The [facility] Comment on above:Performed By: #### CR BGA ####[facility] PATHOLOGY MPUJCZYHKU[address] [place] [address], [address]LD PXJ033.4 mm HgCritically high 35.0-45.0The [facility] SystemComment on above:Performed By: #### CR BGA ####[facility] PATHOLOGY CZSMNHQLBY[address] [place] [address], [address]XX PHA7.483Zhg1.350-7.450The [facility] SystemComment on above:Performed By: #### CR BGA ####[facility] PATHOLOGY QWLRJDWEBL[address] [place] [address], [address]DO PO271 mm GiWwf20-076Flk [facility] SystemComment on above: Performed By: #### CR BGA ####[facility] PATHOLOGY AWMJMMVHLO[address] [place] [address], [address]CCG1 (CATEGORY)>5 LPMNormalThe [facility] Comment on above:Performed By: #### CR BGA ####[facility] PATHOLOGY BCMTLWJYXI[address] [place] [address], [address]FHO9 (Bld) [Moles/Vol]35 mmol/LHigh 21-28The [facility] SystemComment on above:Performed By: #### CR BGA ####[facility] PATHOLOGY FJKRVSALZA245[address] [place] [address], [address]LJHIATGTF NormalThe [facility] SystemComment on above:Performed By: #### CR BGA ####[facility] PATHOLOGY HGZWFCYOMM44[address] [place] [address], [address]Bwfbph saturation in Blood92.0 %Low95.0-99.0The [facility] ([facility] SystemComment on above: Performed By: #### CR BGA ####[facility] PATHOLOGY CPAOYGVFPD[address] [place] [address], [address]CKKQHENS BLOOD COUNTon 43-40-7200Ergarogbems distribution width (RBC) [Ratio]16.0 %High11.5-14.5The [facility] SystemComment on above:Performed By: #### CBC ####[facility] PATHOLOGY CTPNHTKXAF[address] [place] [address], [address]Igxvviqxnd (Bld) [Volume fraction]28.3 %Low 41.0-53.0The [facility] SystemComment on above:Performed By: #### CBC ####[facility] PATHOLOGY ELTCMMYRXJ[address] [place] [address], [address]Nfdpoaiuze (Bld) [Mass/Vol]9.1 g/dLLow13.9-16.3The [facility] SystemComment on above: Performed By: #### CBC ####[facility] PATHOLOGY OPYLOOVZQI3516[address] [place] [address], [address]XMM (RBC) [Entitic mass]31.5 vwDnpnnl96.0-34.0The [facility] SystemComment on above:Performed By: #### CBC ####[facility] PATHOLOGY UTOVJPDOJA7343 [place], [address]BAAD (RBC) [Mass/Vol] 32.1 g/aZZddjee20.0-35.9The [facility] SystemComment on above:Performed By: #### CBC ####[facility] PATHOLOGY NPFKLTTDDF2925[address] [place] [address], [address]JXX (RBC) [Entitic vol]98 gYSmhfuh61-331Rgj [address]ro[facility] SystemComment on above:Performed By: #### CBC ####[facility] PATHOLOGY PDEIIYXVEU[address] [place] [address], [address]Lpadmbfn mean volume (Bld) [Entitic vol]6.1 fLLow 7.5-11.2The [facility] SystemComment on above:Performed By: #### CBC ####[facility] PATHOLOGY WGERSKDMGY[address] [place] [address], [address]Qfbystagy (Bld) [#/Vol]471 10*3/pVNsdk389-861Mdu [facility] Hospitalro[facility] SystemComment on above: Performed By: #### CBC ####[facility] PATHOLOGY EGWUFOBMYS[address] [place] [address], [address]SEH (Bld) [#/Vol]2.88 10*6/uLLow4.50-5.90The [facility] Hospitalro[facility] SystemComment on above:Performed By: #### CBC ####[facility] PATHOLOGY PFZTYGCMOH069[address] [place] [address], [address]YWD (Bld) [#/Vol]10.7 10*3/uLNormal4.5-11.5The [facility] SystemComment on above:Performed By: #### CBC ####[facility] PATHOLOGY JIDIVTVTHJ[address] [place] [address], Erythrocyte distribution width (RBC) [Ratio]15.7 %High11.5-14.5The [facility] SystemComment on above:Performed By: #### CBC ####[facility] PATHOLOGY RVLYRZMVFY[address] [place] [address], [address]Vdnzsybbui (Bld) [Volume fraction]32.1 %Low41.0-53.0The [facility] Hospital[facility] SystemComment on above:Performed By: #### CBC ####[facility] PATHOLOGY VJCNXIQIVF308[address] [place] [address], Hemoglobin (Bld) [Mass/Vol]10.6 g/dLLow13.9-16.3The [facility] SystemComment on above:Performed By: #### CBC ####[facility] PATHOLOGY ZHYBGEBEBX[address] [place] [address], [address]MBN (RBC) [Entitic mass]31.9 aqQwiryc90.0-34.0The [facility] Hospitalro[facility] SystemComment on above:Performed By: #### CBC ####[facility] PATHOLOGY CUCTDOVXQS[address] [place] [address], [address]SFNP (RBC) [Mass/Vol] 32.9 g/qGVyvoiv95.0-35.9The [facility] ([facility] SystemComment on above:Performed By: #### CBC ####[facility] PATHOLOGY XKOZSBOCDW180[address] [place] [address], [address]DLW (RBC) [Entitic vol]97 tXEknzbs93-332Pqn [facility] SystemComment on above:Performed By: #### CBC ####[facility] PATHOLOGY EMHRWHPQJJ[address] [place] [address], [address]Sbsnbowe mean volume (Bld) [Entitic vol]6.3 fLLow 7.5-11.2The [facility] ([facility] SystemComment on above:Performed By: #### CBC ####[facility] PATHOLOGY LWERZWBVMS[address] [place] [address], [address]Wdbdnvgdl (Bld) [#/Vol]517 10*3/rDLtbi178-583Ywu [facility] Hospitalro[facility] SystemComment on above: Performed By: #### CBC ####[facility] PATHOLOGY PUHWOWTGSM[address] [place] [address], [address]DDR (Bld) [#/Vol]3.31 10*6/uLLow4.50-5.90The [facility] SystemComment on above:Performed By: #### CBC ####[facility] PATHOLOGY HVETMKNBWD9937[address] [place] [address], [address]KZX (Bld) [#/Vol]11.2 10*3/uLNormal4.5-11.5The [facility] SystemComment on above:Performed By: #### CBC ####[facility] PATH[facility] XSTJMZCGZP2713 [place], HIGH SENSITIVITY TROPONIN Ion 90-80-1964SN TROPONIN I11 ng/LNormal<=15The [facility] SystemComment on above:Order Comment: Elevated troponin can [...] provider judgement.Performed By: #### HSTRP ####[facility] PATH[facility]Y UVIABVJZWT1841 [place], [address]QOWUFGTFBap 05-27-2024 Magnesium [Mass/Vol]2.3 mg/dLNormal1.9-2.7The [facility] SystemComment on above:Performed By: #### CH8, MG, PHOS ####[facility] PATHOLOGY TUISSSBEVA[address] [place] [address], [address]Bgzktczyv [Mass/Vol]2.3 mg/dLNormal 1.9-2.7The [facility] SystemComment on above:Performed By: #### PHOS, MG, CH8 ####[facility] PATHOLOGY XPMWGNCQEO[address] [place] [address], PHOSPHORUSon 28-64-0010Ugfrtwvtv [Mass/Vol]3.6 mg/dLNormal2.5-5.0The [facility] SystemComment on above:Performed By: #### CHIvis, MG, PHOS ####S PATHOLOGY TJTXARFXWX14[address] [place] [address], [address]Pljqsorbd [Mass/Vol]3.5 mg/dLNormal2.5-5.0The [facility] SystemComment on above:Performed By: #### PHOS, MG, CH8 ####[facility] PATHOLOGY MABVCPYGFC7[address] [place] [address], [address]Oynhyzhqkphf 25-16-4211Ocirevaqpttwa Authentication Interface Message TextManhattan Eye, [facility]at [facility] SystemTranscription Authentication Interface Message TextNoShelby [facility] SystemTranscription Authentication Interface Message TextNoS[facility] SystemProgress Noteson 01-35-3298Calbmlirfdfde Authentication Interface Message TextNoS[facility]by [facility] SystemTranscription Authentication Interface Message [id number]: 30mg etomidate, 100mg succ 1553: #7.5 ETT, 22 @ lip line; positive color change; bilateral breath sounds presentNoShelby Memorial Hospital SystemTranscription Authentication Interface Message TextNoShelby [facility] SystemTranscription Authentication Interface Message TextManhattan Eye, Ear and [facility]roat [facility] SystemURINALYSIS WITH REFLEX CULTURE PERFORMABLEon 10-44-2337Oqopubn Ql (U)NegativeNormalNegativeThe [facility] SystemComment on above:Order Comment: A negative leukocyte [...] for UTI around 50%)Performed By: #### urinalysiswcul ####[facility] PATHOLOGY WTSBCVAMAP7824 [place], #### C URINE ####[facility] Dzahddhaf[address] [place], [place] [id number] CASTS3-5NormalThe [facility] SystemComment on above:Order Comment: A negative leukocyte [...] around 50%)Performed By: #### urinalysiswcul ####S PATHOLOGY KRUDEHXTUA9125 [place], #### C URINE ####[facility] Jtxdnieoy45[address] [place], [place] [phone] (U) [Mass/Vol]100 mg/dLAbnormal NegativeThe [facility] SystemComment on above:Order Comment: A negative leukocyte [...] for UTI around 50%)Performed By: #### urinalysiswcul ####[facility] PATHOLOGY BQFICWZJHE4853 [place], #### C URINE ####[facility] Ztoyzxbys[address] [place], [place] [id number] SQUAMOUS EKMIJBYBAW1-8Keqeaq4-23Vke [facility] SystemComment on above:Order Comment: A negative leukocyte [...] for UTI around 50%)Performed By: #### urinalysiswcul ####[facility] PATHOLOGY PBRSUVEOIW[address] [place] [address], #### C URINE ####[facility] Slxuupnwh9[address] [place], [place] [phone] APPEARTurbidNormalClearProMedica Toledo Hospital SystemComment on above: Order Comment: A [...] for UTI around 50%)Performed By: #### urinalysiswcul ####[facility] PATHOLOGY IFCQLCYQSR8222 [place], #### C URINE ####[facility] Nvykfpyyl[address] [place], [place] [id number] BACTERIAFewNormalThe [facility] SystemComment on above:Order Comment: A negative leukocyte [...] for UTI around 50%)Performed By: #### urinalysiswcul ####[facility] PATHOLOGY ZXVYOXJNOM8127 [place], #### C URINE ####[facility] Ryndcrfxg[address] [place], [place] [phone] BILINegativeNormalNegativeThe [facility] SystemComment on above:Order Comment: A negative leukocyte [...] for UTI around 50%)Performed By: #### urinalysiswcul ####[facility] PATHOLOGY LTLZAKNXCI8724 [place], #### C URINE ####[facility] Lfcafzcdx[address] [place], [place] [id number] BLOODNegativeNormalNegativeThe [facility] SystemComment on above:Order Comment: A negative leukocyte [...] for UTI around 50%)Performed By: #### urinalysiswcul ####[facility] PATHOLOGY IMUNHYCUOK3474 [place], #### C URINE ####[facility] Zclqqsjwv6[address] [place], [place] [id number] COLORYellowNormalColorlessProMedica Toledo Hospital SystemComment on above:Order Comment: A negative [...] for UTI around 50%)Performed By: #### urinalysiswcul ####[facility] PATHOLOGY FRUFWEQDSV647[address] [place] [address], #### C URINE ####[facility] Rigjqsgxs[address] [place], [place] [id number] HY CAST3-5NoalThProtestant Deaconess Hospital SystemComment on above:Order Comment: A negative [...] for UTI around 50%)Performed By: #### urinalysiswcul ####[facility] PATHOLOGY MBPCFHRKIB4411 [place], #### C URINE ####[facility] Bjgwczpbm[address] [place], [place] [id number] KETONENegativeNormalNegativeProMedica Toledo Hospital SystemComment on above:Order Comment: A negative [...] for UTI around 50%)Performed By: #### urinalysiswcul ####[facility] PATHOLOGY FGKVVTHDEH6532 [place], #### C URINE ####[facility] Ysvaiamii[address] [place], [place] [phone] LEUKNegativeNormalNegativeProMedica Toledo Hospital SystemComment on above:Order Comment: A negative [...] for UTI around 50%)Performed By: #### urinalysiswcul ####[facility] PATHOLOGY OOGAAHKFTY7916[address] [place] [address], #### C URINE ####[facility] Kpszjnuis[address] [place], [place] [id number] MUCOUSPresentNormalThe [facility] SystemComment on above:Order Comment: A negative leukocyte [...] for UTI around 50%)Performed By: #### urinalysiswcul ####[facility] PATHOLOGY WWTEMKABCH6[address] [place] [address], #### C URINE ####[facility] Pjjpyetka[address] [place], [place] [id number] NITRITENegativeNormalNegativeThe [facility] SystemComment on above:Order Comment: A negative leukocyte [...] for UTI around 50%)Performed By: #### urinalysiswcul ####[facility] PATHOLOGY MQBJFZLAPD[address] [place] [address], #### C URINE ####[address]U PH6.8Pzcinw3.0-8.0The [facility] SystemComment on above:Order Comment: A negative leukocyte [...] for UTI around 50%)Performed By: #### urinalysiswcul ####[facility] PATHOLOGY LHCGAVJTXY7912[address] [place] [address], #### C URINE ####[facility] Xlubmyyxc45[address] [place], [place] [id number] OQI90-38Obncuzpe0-4Ehu [facility] SystemComment on above:Order Comment: A negative leukocyte [...] for UTI around 50%)Performed By: #### urinalysiswcul ####[facility] ZDEBXFNKZU7890 [place], [place], #### C URINE ####[address] SG1.031High<=1.030The [facility] SystemComment on above:Order Comment: A negative leukocyte [...] for UTI around 50%)Performed By: #### urinalysiswcul ####[facility] KHRYRZXZNN[address] [place] [address], #### C URINE ####[address] UROBILI3.0 mg/dLAbnormalNegativeThe [facility] SystemComment on above:Order Comment: A negative leukocyte [...] for UTI around 50%)Performed By: #### urinalysiswcul ####[facility] KZEOLDTPUX2037 [place], [place], #### C URINE ####[facility] Tfobwfgkr[address] [place], [place] [address]U AOQ7-87Lgdmafmg6-1Owd [facility] SystemComment on above:Order Comment: A negative leukocyte [...] for UTI around 50%)Performed By: #### urinalysiswcul ####[facility] NTQFYRFNKL036[address] [place] [address], #### C URINE ####[facility] Rbsyoumuw9[address] [place], [place] [address]URINE CULTUREon 87-01-8563Tbqzslmg identified Cx Nom (U)C URINE: No growth of greater than 1,000 CFU/mlNormalThe [facility] SystemComment on above:Performed By: #### urinalysiswcul ####[facility] IRGDFCSMCA[address] [place] [address], #### C URINE ####[facility] Tkjaxmaba[address] [place], [place] [address]XR ABDOMEN AP 1 VIEWon 39-29-2721MU ABDOMEN AP [address] [facility] HospitalroHealth SystemXR CHEST AP OR PA 1 VIEWon 72-29-1037JB CHEST AP OR PA [address] [facility] Hospitalro[facility] SystemXR CHEST AP OR PA 1 VIEWNormalThe [facility] SystemXR CHEST AP OR PA [address] V[address] [facility]ro[facility] SystemXR CHEST AP OR PA 1 VIEWNormalThe [facility] SystemXR Chest Single viewon 25-32-1929GVRGBBPRTXH: XR CHEST AP OR PA 1 VIEW [...] Chest Single viewOrdered By: Chema Garvey on 58-52-8022KbmfbXqlygw Work Phone: assessment AND Plan Noteon 91-82-1499Obnbtlotvluwi Authentication Interface Message Text-likely in setting of anticholinergics and critical illness -last BM 05/23, patient passing gas this morning Plan: -continue senna dailyNormElyria Memorial [email or web address] [facility] ([email or web address] SystemTranscription Authentication Interface Message Text-in setting of acute hypoxic respiratory failure and pneumothorax -next of kin is Ilana Michelle (spouse) and then son Chente Vaughn (numbers in chart) -did not address code statusNoSportboome [facility] ([email or web address] SystemTranscription Authentication Interface Message Text-in setting of pneumothrorax and rib fracturesNoShelby Memorial Hospital SystemTranscription Authentication Interface Message Text-appears to be improving on imagingNoShelby Memorial Hospital System [employer] Authentication Interface Message Text-now s/p rib plating and rib block, likely cause of hypoxic respiratory failureNoShelby Memorial Hospital System [employer] Authentication Interface Message TextNoShelby Memorial Hospital System BASIC METABOLIC PANELon 83-35-2952Lrept gap [Moles/Vol]13 mmol/VKxzhfw19-32Qqs [facility] SystemComment on above:Performed By: #### CHI PRADO, CH8 ####[facility] UJUMJIJPEV5325 [place], [address]Lqzhwau [Mass/Vol]8.3 mg/dLLow8.6-10.3The [facility] ([facility]oldtHealth SystemComment on above:Performed By: #### CHI PRADO, CH8 ####[facility] SQOFNNODBN8049 [place], [address]Xzmqlqgu [Moles/Vol]102 mmol/GNacfuz86-418Bsx [facility] ([facility]oldtHealth SystemComment on above:Performed By: #### CHI PRADO, CH8 ####[facility] UOJXEWJBGD7248 [place], [address]YA9 [Moles/Vol]31 mmol/KVwwyiw47-85Ekw [facility] SystemComment on above:Performed By: #### CHI PRADO, CH8 ####[facility] JJVTMCCTQU0134 [place], [address]Bhmvaotpmz [Mass/Vol]0.66 mg/dLLow0.70-1.30The [facility] HospitalroHealth SystemComment on above:Performed By: #### CHI PRADO, CH8 ####[facility] KQYAMMFUIO0698 [place], [address]KEUMIVYOW GFR (CKD-EPI)93 mL/min/1.73sqmNormal>=60The [facility] SystemComment on above: Result Comment: 2020 CKD EPI Equation using Creatinine without RaceComment: Estimated glomerular filtration rate (eGFR) is calculated without a race coefficient. Values should be interpreted in the context of the patient's full clinical presentation.Reference:1. Rishi Jose Jorge M, Nic SILVA, et al.. A Unifying Approach for GFR Estimation: Recommendations of the NKF-ASN Task Force on Reassessing the Inclusion of Race in Diagnosing Kidney Disease. Nigerian Journal of Kidney Diseases 2021;79(2):268-88.e1.2. N Engl J Med 2020 Vol. 385 Issue 19 Pages 9707-5611Performed By: #### CHI PRADO CH8 ####[facility] HDKPUXGJUI2604 [place], [address]Jtqopdz [Mass/Vol]91 mg/bBXzfido86-203Wgf [facility] HospitalroHealth SystemComment on above:Performed By: #### CIH PRADO CH8 ####[facility] UJJKLSALFL3696 [place], [place], 44 Potassium [Moles/Vol]3.7 mmol/LNormal3.5-5.0The [facility] System Comment on above:Performed By: #### CHI PRADO CH8 ####[facility] OYXLTGXEFL6297 [place], [address]Iqefnh [Moles/Vol]142 mmol/OHdwmoy604-942Luv [facility] HospitalroHealth SystemComment on above:Performed By: #### CHI PRADO CH8 ####[facility] PATH[facility] OATFNUVYSQ1947 [place], Urea nitrogen [Mass/Vol]23 mg/dLNormal7-25The [facility] HospitalroHealth SystemComment on above:Performed By: #### CHI PRADO CH8 ####[facility] EJVIVVYGPH5873 [place], [address]CCIPEHKK BLOOD COUNTon 05-26-2024 Erythrocyte distribution width (RBC) [Ratio]15.5 %High11.5-14.5The [facility] HospitalroHealth SystemComment on above:Performed By: #### CBC ####[facility] GJRICZEDVI5631 [place], [address]Dwvbfuaoik (Bld) [Volume fraction]29.3 %Low41.0-53.0The [facility] HospitalroHealth SystemComment on above:Performed By: #### CBC ####[facility] PATH[facility] BMKKCAKCRX2569 [place], Hemoglobin (Bld) [Mass/Vol]9.5 g/dLLow13.9-16.3The [facility] SystemComment on above:Performed By: #### CBC ####[facility] HSWESIJDVF[address] [place] [address], [address]UZO (RBC) [Entitic mass]31.4 jeHdosws22.0-34.0The [facility] SystemComment on above:Performed By: #### CBC ####[facility] MSMMGQCPMQ8[address] [place] [address], [address]TRRR (RBC) [Mass/Vol] 32.6 g/jRJoznil95.0-35.9The [facility] HospitalroHealth SystemComment on above:Performed By: #### CBC ####[facility] TYOAHRFEAY007[address] [place] [address], [address]YMS (RBC) [Entitic vol][address]FQdbkdz51-579Ubg [address] [facility] HospitalroHealth SystemComment on above:Performed By: #### CBC ####[facility] ESUOMFBXVY[address] [place] [address], [address]Gmfmhpmh mean volume (Bld) [Entitic vol]6.2 fLLow 7.5-11.2The [facility] HospitalroHealth SystemComment on above:Performed By: #### CBC ####[facility] FTXLXHXOAC183[address] [place] [address], [address]Ilwmoyhvb (Bld) [#/Vol]439 10*3/pELuix854-101Pqb [facility] HospitalroHealth SystemComment on above: Performed By: #### CBC ####[facility] PATH[facility] SLUCGZYDYI624[address] [place] [address], [address]ILR (Bld) [#/Vol]3.04 10*6/uLLow4.50-5.90The [facility] (HulmboldtHealth SystemComment on above:Performed By: #### CBC ####[facility] IUKTAZHBDX354[address] [place] [address], [address]OSK (Bld) [#/Vol]8.8 10*3/uLNormal4.5-11.5The [facility] SystemComment on above:Performed By: #### CBC ####[facility] XOURSKWHFV1643 [place], [place], Consultson 22-44-6009Rbitmtcvcawgg Authentication Interface Message TextNormal The [facility] HospitalroK[facility] SystemMAGNESIUMon 94-18-3743Bboprtimi [Mass/Vol]2.2 mg/dLNormal 1.9-2.7The [facility] SystemComment on above:Performed By: #### MGCHI, CH8 ####[facility] PQTYEAVIZP9706 [place], PHOSPHORUSon 77-05-1730Rocaitvei [Mass/Vol]3.4 mg/dLNormal2.5-5.0The [facility] SystemComment on above:Performed By: #### MG PHOS, CH8 ####[facility] GXXEJWLEVV0145 [place], [address]Jmhkleqa Noteson 23-71-5785Xeycshoxxycxx Authentication Interface Message TextNormElyria Memorial Hospitale [facility] SystemTranscription Authentication Interface Message TextNormOhioHealth [facility] SystemTranscription Authentication Interface Message TextNoShelby Memorial Hospital SystemXR CHEST AP OR PA 1 VIEWon 05-86-5474KG CHEST AP OR PA [address] [facility] HospitalroKettering [facility] SystemXR Chest Single viewon 46-49-3067YDWOMCSVMEN: XR CHEST AP OR PA 1 VIEW [...] tachypnea and new tachycardia ORDERING PROVIDER: LINO MCKEON-RENU TECHNOLOGISTS NOTE: COMPARISON: XR CHEST AP OR [...] Chest Single viewOrdered By: Chema Garvey on 21-44-2237JthxhQfhpjp Work Phone: [phone] Interactionon 99-25-1916Fmhaqcvqlzgdw Authentication Interface Message TextNoShelby Memorial Hospital SystemAssessment AND Plan Noteon 41-37-5930Cxknrufmfexor Authentication Interface Message Text- appears to be improving on imagingNoShelby Memorial Hospital SystemTranscription Authentication Interface Message Text-in setting of acute hypoxic respiratory failure and pneumothorax -next of kin is Ilana Michelle (spouse) and then son Chente Vaughn (numbers in chart) -did not address code statusNoShelby Memorial Hospital SystemTranscription Authentication Interface Message Text-likely in setting of anticholinergics and critical illness -last BM 05/23 Plan: -change senna to daily, if no BM today increase to bid -consider bisacodyl suppository prnNormalThe [facility] SystemTranscription Authentication Interface Message Text-in setting of pneumothrorax and rib fracturesNormalThe [facility] SystemTranscription Authentication Interface Message Text-now s/p rib plating and rib block, likely cause of hypoxic respiratory failureNormalThe [facility] SystemTranscription Authentication Interface Message TextNoShelby Memorial Hospital SystemBASIC METABOLIC PANELon 06-32-6653Vhxnb gap [Moles/Vol]10 mmol/VXpjuyo02-65Ncv [facility] SystemComment on above:Performed By: #### MG, CH8, PHOS ####[facility] VKJLBGGTSP8888 [place], [address]Nyiafsj [Mass/Vol]8.2 mg/dLLow8.6-10.3 The [facility] ([facility]oldtHealth SystemComment on above:Performed By: #### MG, CH8, PHOS ####[facility] IPFIVACGSF5979 [place], [address]Nokgdcws [Moles/Vol]100 mmol/CRnhzmp06-089Ads [facility] SystemComment on above: Performed By: #### MG, CH8, RADS ####[facility] CXPMZMPNUO1660 [place], [address]NR7 [Moles/Vol]33 mmol/IUkjr47-82Kbo [facility] SystemComment on above:Performed By: #### MG, CH8, PHOS ####[facility] QXDMFNOGWE2026 [place], [address]Qoghriullp [Mass/Vol] 0.68 mg/dLLow0.70-1.30The [facility] SystemComment on above:Performed By: #### MG, CH8, PHOS ####[facility] ANZYHLVXON8906 [place], [address]BSJXKMHPY GFR (CKD-EPI)92 mL/min/1.73sqmNormal>=60The [facility] SystemComment on above:Result Comment: 2020 CKD EPI [...] Inclusion of Race in Diagnosing Kidney Disease. Nigerian Journal of Kidney Diseases 202;79(2):268-88.e1.2. N Engl J Med 2020 Vol. 385 Issue 19 Pages 2290-3228Performed By: #### AMMON PRADO PHOS ####S PATHOLOGY YWUWHKZYJW8524 [place], [address]Zfknrjm [Mass/Vol]80 mg/nVBtsihv34-197Okm [facility] SystemComment on above:Performed By: #### AMMON PRADO PHOS ####S PATHOLOGY CMDNIPPXSG0429 [place], [address]Azmncoofk [Moles/Vol]4.3 mmol/LNormal3.5-5.0The [facility] SystemComment on above:Result Comment: Hemolysis presentPerformed By: #### AMMON PRADO PHOS ####S PATHOLOGY VGFPJCMSRO8170 [place], [address]Fmvyyf [Moles/Vol]139 mmol/ZJsdhht565-426Npp [facility] HospitalroHealth SystemComment on above:Performed By: #### AMMON PRADO PHOS ####S PATHOLOGY LOCUVDLAQA2773 [place], [address]Lwin nitrogen [Mass/Vol]25 mg/dLNormal7-25The [facility] SystemComment on above:Performed By: #### AMMON PRADO PHOS ####S PATHOLOGY FDLYYAWNMA7785 [place], [address]MUIRG GAS, ARTERIALon 38-04-2676WZ ABE4.7 mmol/L High-2.0-3.0The [facility] HospitalroHealth SystemComment on above:Performed By: #### CR BGA ####S PATHOLOGY NXEZTJJPPY9557 [place], [address]JN EXL827.5 mm BkEipa97.0-45.0The [facility] SystemComment on above:Performed By: #### CR BGA ####S PATHOLOGY MIYZXPFPCO[address] [place] [address], [address]AR PHA7.506Jxrukf0.350-7.450The [facility] SystemComment on above: Performed By: #### CR BGA ####[facility] LOALWPMHLP[address] [place] [address], [address]MY PO264 mm DkMda73-314Unb [facility] Comment on above:Performed By: #### CR BGA ####[facility] IWOPFOTNTA05[address] [place] [address], [address]KRC9 (CATEGORY)50%NormalThe St. [facility]S HospitalroHealth SystemComment on above:Performed By: #### CR BGA ####[facility] WNKJFPPUJV235[address] [place] [address], [address]DHO7 (Bld) [Moles/Vol] 29 mmol/MLulu04-49Rnm [facility] HospitalroHealth SystemComment on above:Performed By: #### CR BGA ####[facility] PATH[facility] XCBYOAKIFU748[address] [place] [address], MODENasal CanulaNormalThe St. [facility]'S HospitalroKettering [facility] SystemComment on above:Result Comment: Highflow 40 LitersPerformed By: #### CR BGA ####[facility] QFAHLLNTBV1439[address] [place] [address], [address]Hqfbec saturation in Blood91.8 %Low 95.0-99.0The [facility] HospitalroHealth SystemComment on above:Performed By: #### CR BGA ####[facility] ISFIPOTHEC168[address] [place] [address], [address]OZ ABE5.3 mmol/LHigh-2.0-3.0The [facility] HospitalroHealth SystemComment on above:Performed By: #### CR BGA ####[facility] TLXQQMRTVH[address] [place] [address], [address]PQ BJC940.7 mm FoTjxpit59.0-45.0The [facility] HospitalroHealth SystemComment on above:Performed By: #### CR BGA ####[facility] EAVQVAPTFC13[address] [place] [address], [address]PS PHA7.504Yqgqhk9.350-7.450The [facility] HospitalroKet[facility] System Comment on above:Performed By: #### CR BGA ####[facility] JZNGJTTYQY[address] [place] [address], [address]SV PO270 mm OcCzw20-981Gdr [facility] HospitalroHealth SystemComment on above:Performed By: #### CR BGA ####[facility] FURCRCPJZP[address] [place] [address], [address]CLR6 (CATEGORY)44% NormalThe St. [facility] HospitalroHealth SystemComment on above:Result Comment: LPMPerformed By: #### CR BGA ####[facility] EQQYHKOHHE169[address] [place] [address], [address]YRP5 (Bld) [Moles/Vol]30 mmol/MVxsh19-08Hxu [facility] SystemComment on above:Performed By: #### CR BGA ####[facility] KKYCVEHTFQ[address] [place] [address], [address]TJIQFWWPHInyeyfDgm [address] HospitalroHealth SystemComment on above:Result Comment: 18/04Performed By: #### CR BGA ####[facility] VMYRJXYJOK[address] [place] [address], [address]Ukzezm saturation in Blood94.5 %Low95.0-99.0The [facility] HospitalroHealth SystemComment on above:Performed By: #### CR BGA ####[facility] CNODWVOWIY[address] [place] [address], [address]PP ABE6.1 mmol/LHigh-2.0-3.0The [facility] HospitalroHealth SystemComment on above: Performed By: #### CR BGA ####[facility] YNSFXWGXLF[address] [place] [address], [address]ND AMJ676.7 mm RoMgmwpb63.0-45.0The [facility] HospitalroHealth SystemComment on above:Performed By: #### CR BGA ####[facility] CJLCOIFQBZ[address] [place] [address], [address]UR PHA7.454High 7.350-7.450The [facility] HospitalroHealth SystemComment on above:Performed By: #### CR BGA ####[facility] VUJIPNGTRE[address] [place] [address], [address]FJ PO264 mm XlPmc71-458Shu [facility] HospitalroHealth SystemComment on above:Performed By: #### CR BGA ####[facility] BFDOVLSUAH[address] [place] [address], FIO2 (CATEGORY)[address] [facility] HospitalroHealth SystemComment on above:Result Comment: 6LPMPerformed By: #### CR BGA ####[facility] PFKIPNKYHL[address] [place] [address], [address]ISO6 (Bld) [Moles/Vol]30 mmol/SCdyz40-19Csg [facility] HospitalroHealth SystemComment on above:Performed By: #### CR BGA ####[facility] IVKHITRRTQ106[address] [place] [address], [address]JHFKGGAXCPeovrpYdy [facility] ([facility]oldtHealth SystemComment on above:Performed By: #### CR BGA ####[facility] WQCHVBESBB[address] [place] [address], [address]Hbarxw saturation in Blood93.1 %Low95.0-99.0The [facility] ([facility]ulmboldtHealth SystemComment on above:Performed By: #### CR BGA ####[facility] DXIQGYGDDE422[address] [place] [address], [address]AFZPKZCV BLOOD COUNTon 31-83-7999Lcpeqlpcvvs distribution width (RBC) [Ratio]15.7 %High11.5-14.5The [facility] ([facility]oldtHealth SystemComment on above:Performed By: #### CBC ####[facility] AMXBWDBVME[address] [place] [address], [address]Mptyfqouwz (Bld) [Volume fraction]27.5 %Low41.0-53.0The [facility] SystemComment on above:Performed By: #### CBC ####[facility] OJXQYJMJFT[address] [place] [address], [address]Kkswinwwjb (Bld) [Mass/Vol]9.1 g/dLLow 13.9-16.3The [facility] HospitalroHealth SystemComment on above:Performed By: #### CBC ####[facility] UDBFTZLVAB77350[address] [place] [address], [address]VPT (RBC) [Entitic mass]31.7 ewYlvwry94.0-34.0The [facility] ([facility]oldtHealth SystemComment on above: Performed By: #### CBC ####[facility] JHUOTDNLWY643[address] [place] [address], [address]SFSN (RBC) [Mass/Vol]32.9 g/gRUwjjdk66.0-35.9The [facility] SystemComment on above:Performed By: #### CBC ####[facility] ZTPWNLOAUP8680 [place], [address]LRX (RBC) [Entitic vol] 96 bVRiniji94-983Rcx [facility] ([facility]oldtHealth SystemComment on above:Performed By: #### CBC ####[facility] CPDSRIZRKT[address] [place] [address], Platelet mean volume (Bld) [Entitic vol]6.7 fLLow7.5-11.2The [facility] Comment on above:Performed By: #### CBC ####[facility] KBGCUDOXAT[address] [place] [address], [address]Pndokfhby (Bld) [#/Vol]386 10*3/uL Tviitw259-324Npx [facility] SystemComment on above:Performed By: #### CBC ####[facility] NKIKEMGUYQ[address] [place] [address], [address]YAX (Bld) [#/Vol]2.86 10*6/uLLow4.50-5.90The [facility] SystemComment on above: Performed By: #### CBC ####[facility] YUHTLIMOVI[address] [place] [address], [address]ASG (Bld) [#/Vol]9.8 10*3/uLNormal4.5-11.5The [facility] SystemComment on above:Performed By: #### CBC ####[facility] YCFHZDTPDZ[address] [place] [address], [address]Uyltgbjetb 2024 [employer] Authentication Interface Message TextNormCumberland HospitalroHealth System [employer] Authentication Interface Message TextNormCumberland HospitalroKettering [facility] System MAGNESIUMon 13-88-0418Ymmkyhefz [Mass/Vol]2.2 mg/dLNormal1.9-2.7The [facility] SystemComment on above:Result Comment: Hemolysis presentPerformed By: #### MG, CH8, PHOS ####[facility] FGYXCTVPBE3705 [place], [address]PHOSPHORUSon 24-80-7019Eltnztbfa [Mass/Vol]2.7 mg/dLNormal2.5-5.0The [facility] SystemComment on above:Performed By: #### MG, CH8, PHOS ####[facility] LBYWUGFFYP6218 [place], [address]Ktpapijh Noteson 92-68-6983Mkgpkuxphvnzu Authentication Interface Message TextNormalThe St. [facility] HospitalroHealth SystemXR CHEST AP OR PA 1 VIEWon 71-36-5387AJ CHEST AP OR PA [address] [facility] Hospitalro[facility] SystemXR Chest Single viewon 37-90-2529YPSZQLFSFSQ: XR CHEST AP OR PA 1 VIEW [...] 3. No pneumothorax. MACRO: None Gerber Fox, - 2024 EXAMINATION: XR CHEST AP OR [...] Chest Single viewOrdered By: Gerber Mcdaniel on 36-47-3612BtlrlMuhsfn Work Phone: [phone] Interactionon 29-86-1874Kiixxdmjenixq Authentication Interface Message TextNormalThe [facility] SystemBASIC METABOLIC PANELon 20-16-1980Epfxt gap [Moles/Vol]14 mmol/JTybqbk35-40Jpt [facility] SystemComment on above:Performed By: #### CH8 ####[facility] ULICUWPUFL1792 [place], [address]Qvazjwm [Mass/Vol]8.1 mg/dLLow8.6-10.3 The [facility] SystemComment on above:Performed By: #### CH8 ####[facility] SJULBLNAMF1556 [place], [address]Cekeatvl [Moles/Vol]99 mmol/UUjjetv22-748Dbj [facility] SystemComment on above:Performed By: #### CH8 ####S PATHOLOGY PWTDCUHVYI7234 [place], [address]ZP0 [Moles/Vol]30 mmol/JBlulvi72-69Kcb [facility] SystemComment on above:Performed By: #### CH8 ####[facility] NQBOFRNBID7927 [place], [address]Mkkyiztgjf [Mass/Vol]0.62 mg/dLLow0.70-1.30The [facility] HospitalroK[facility] System Comment on above:Performed By: #### CH8 ####[facility] GUHMXFBCYO3785 [place], [address]LHMHRHMVL GFR (CKD-EPI)95 mL/min/1.73sqmNormal>=60The [facility] SystemComment on above:Result Comment: 2020 CKD EPI [...] Inclusion of Race in Diagnosing Kidney Disease. [place] Journal of Kidney Diseases 2021;79(2):268-88.e1.2. N Engl J Med 2020 Vol. 385 Issue 19 Pages 1068-0414Performed By: #### CH8 ####[facility] RLINISFZGB3198 [place], [address]Tparjko [Mass/Vol]108 mg/dLNormal 74-109The [facility] SystemComment on above:Performed By: #### CH8 ####S PATHOLOGY GKHLIAUXGJ7886 [place], [address]Dwsnhyyss [Moles/Vol]3.9 mmol/LNormal3.5-5.0The [facility] SystemComment on above: Performed By: #### CH8 ####S PATHOLOGY UNHAFSFFZJ3212 [place], [address]Mzzbkt [Moles/Vol]139 mmol/VSzqtmi111-339Ghs [facility] HospitalroHealth SystemComment on above:Performed By: #### CH8 ####[facility] TSPSWBUGCT3760 [place], [address]Jzog nitrogen [Mass/Vol]24 mg/dLNormal7-25The [facility] SystemComment on above:Performed By: #### CH8 ####[facility] ODKMTZIQSN0974 [place], [address]Rbigo gap [Moles/Vol]11 mmol/GJzcopd54-50Ery [facility] ([facility] SystemComment on above:Performed By: #### AMMON PRADO, CHI ####S PATHOLOGY DHXSWZMQJL7271 [place], [address]Ygpcido [Mass/Vol]8.3 mg/dLLow8.6-10.3 [facility] ([facility] SystemComment on above:Performed By: #### AMMON PRADO, CHI ####S PATHOLOGY INQVAZLLCP2590 [place], [address]Xoghsivd [Moles/Vol]98 mmol/AAfetgf17-338Jwa [facility] SystemComment on above:Performed By: #### AMMON PRADO, CHI ####S PATHOLOGY DBRSKMPZBM9846 [place], [address]XX4 [Moles/Vol]32 mmol/FJspq36-71Gbh [facility] ([facility] SystemComment on above:Performed By: #### MGAMMON, CHI ####S PATHOLOGY SWRVDQAMPL6415 [place], [address]Lvdnntvdhi [Mass/Vol] 0.66 mg/dLLow0.70-1.30The [facility] ([facility]tHealth SystemComment on above:Performed By: #### MGAMMON, CHI ####S PATHOLOGY JQIFRSAIRN1400 [place], [address]IXWLFKITT GFR (CKD-EPI)94 mL/min/1.73sqmNormal>=60The [facility] ([facility]oldtHealth SystemComment on above:Result Comment: 2020 CKD EPI Equation using Creatinine without RaceComment: Estimated glomerular filtration rate (eGFR) is calculated without a race coefficient. Values should be interpreted in the context of the patient's full clinical presentation.Reference:1. Rishi C, Jorge M, Crelaura DC, et al.. A Unifying Approach for GFR Estimation: Recommendations of the NKF-ASN Task Force on Reassessing the Inclusion of Race in Diagnosing Kidney Disease. Nigerian Journal of Kidney Diseases 202;79(2):268-88.e1.2. N Engl J Med 1 Vol. 385 Issue 19 Pages 0206-9682Performed By: #### AMMON PRADO, CHI ####[facility] PATHOLOGY KIOHOWGFQE0554 [place], [address]Tfzmrpg [Mass/Vol]99 mg/tJXzbyue47-639Riq [facility] HospitalroHealth SystemComment on above:Performed By: #### AMMON PRADO, HCI ####[facility] PATHOLOGY BALNSBZNLU4758 [place], [address]Eodpskzev [Moles/Vol]5.4 mmol/LHigh3.5-5.0The [facility] HospitalroHealth SystemComment on above:Result Comment: Hemolysis presentPerformed By: #### AMMON PRADO, PHOS ####[facility] PATHOLOGY MHUPXFWUZN6024 [place], [address]Ikyhbf [Moles/Vol]136 mmol/LMowrlf361-514Iql [facility] HospitalroHealth SystemComment on above:Performed By: #### AMMON PRADO, PHOS ####[facility] PATHOLOGY TSVVMBSLWD3989 [place], [address]Ewml nitrogen [Mass/Vol]25 mg/dLNormal7-25The [facility] SystemComment on above:Performed By: #### AMMON PRADO, PHOS ####[facility] PATHOLOGY DYXEXPCHLF7020 [place], [address]CLKRH GAS, ARTERIALon 20-79-9949DW ABE5.6 mmol/L High-2.0-3.0The [facility] HospitalroHealth SystemComment on above:Performed By: #### CR BGA ####[facility] PATHOLOGY AHPPSWUMIU6600 [place], [address]WU KCZ835.8 mm WqYrcv79.0-45.0The [facility] SystemComment on above:Performed By: #### CR BGA ####[facility] PATHOLOGY YJCWTNKCQO[address] [place] [address], [address]CF PHA7.503Fhzutv5.350-7.450The [facility] HospitalroHealth SystemComment on above: Performed By: #### CR BGA ####[facility] PATHOLOGY ZKMIBLIEPH[address] [place] [address], [address]TJ PO286 mm WoLhzlpi94-218Uiv [facility] Comment on above:Performed By: #### CR BGA ####[facility] PATHOLOGY RLHSHTSWRN[address] [place] [address], [address]KXG2 (CATEGORY)50%NormalThe St. [facility] HospitalroHealth SystemComment on above:Performed By: #### CR BGA ####[facility] PATHOLOGY JYDYWDIETY[address] [place] [address], [address]LUI3 (Bld) [Moles/Vol] 31 mmol/KJnfs11-81Yrn [facility] HospitalroHealth SystemComment on above:Performed By: #### CR BGA ####[facility] PATHOLOGY KZLNRPONDM[address] [place] [address], MODENasal CanulaNormalThe St. [facility] HospitalroK[facility] SystemComment on above:Result Comment: HHFNC 60 LPMPerformed By: #### CR BGA ####[facility] PATHOLOGY GJAPKRSTAG[address] [place] [address], [address]Cljbli saturation in Blood96.7 %Normal 95.0-99.0The [facility] HospitalroHealth SystemComment on above:Performed By: #### CR BGA ####[facility] PATHOLOGY NEYJUGYUUC[address] [place] [address], [address]EP ABE5.9 mmol/LHigh-2.0-3.0The [facility] HospitalroHealth SystemComment on above:Performed By: #### CR BGA ####[facility] PATHOLOGY NJDVUITMFW[address] [place] [address], [address]RO WNG905.7 mm GbVait93.0-45.0The [facility] HospitalroHealth SystemComment on above: Performed By: #### CR BGA ####[facility] PATHOLOGY QFTPIWUPYQ[address] [place] [address], [address]QK PHA7.443Hpqexm6.350-7.450The [facility] Comment on above:Performed By: #### CR BGA ####[facility] PATHOLOGY HEROCYCGCH57[address] [place] [address], [address]KS PO272 mm PyKlz88-858Xbx [facility] HospitalroHealth SystemComment on above:Performed By: #### CR BGA ####[facility] PATHOLOGY MFDGBQBTLG789[address] [place] [address], [address]EAA2 (CATEGORY)40% NormalThe [facility] ([facility]oldt[facility] SystemComment on above:Performed By: #### CR BGA ####[facility] PATHOLOGY QMDKQUIMVD0399[address] [place] [address], [address]FMN2 (Bld) [Moles/Vol]30 mmol/LLiem30-73Pzr [facility] SystemComment on above:Performed By: #### CR BGA ####[facility] PATHOLOGY MPCJMNCLKZ70350[address] [place] [address], [address]RIMSWvcro CanulaNormalThe [facility] SystemComment on above:Result Comment: high flowPerformed By: #### CR BGA ####[facility] PATHOLOGY HXDOXJKAIK18360[address] [place] [address], [address]Hcuwmo saturation in Blood94.5 %Low 95.0-99.0The [facility] SystemComment on above:Performed By: #### CR BGA ####[facility] PATHOLOGY MCAHKYFVGW[address] [place] [address], [address]SP ABE6.1 mmol/LHigh-2.0-3.0The [facility] HospitalroHealth SystemComment on above:Performed By: #### CR BGA ####[facility] PATHOLOGY YETNEYCXDP95230[address] [place] [address], [address]WZ YFB236.9 mm OzSrpj46.0-45.0The [facility] ([facility] SystemComment on above: Performed By: #### CR BGA ####[facility] PATHOLOGY XIUHQVYHDC[address] [place] [address], [address]PR PHA7.284Dqioin8.350-7.450The [facility] HospitalroK[facility] System Comment on above:Performed By: #### CR BGA ####[facility] PATHOLOGY EVUZUEXETS[address] [place] [address], [address]MG PO263 mm YcQyl23-700Azt [facility] HospitalroHealth SystemComment on above:Performed By: #### CR BGA ####[facility] PATHOLOGY WWMTCKYEIP972[address] [place] [address], [address]SPJ9 (CATEGORY)[address] [facility]S HospitalroHealth SystemComment on above:Performed By: #### CR BGA ####[facility] PATHOLOGY IRHOLSACEK[address] [place] [address], [address]OGC1 (Bld) [Moles/Vol]31 mmol/ZDupl05-53Hua [facility] HospitalroHealth SystemComment on above:Performed By: #### CR BGA ####[facility] PATHOLOGY QTOBWCPCFM[address] [place] [address], [address]ZGYAWdgqm CanulaNormalThe [facility] SystemComment on above: Performed By: #### CR BGA ####[facility] PATHOLOGY UCQUQKDODI59750[address] [place] [address], [address]Vjpwxa saturation in Blood92.1 %Low95.0-99.0The [facility] HospitalroHealth SystemComment on above:Performed By: #### CR BGA ####[facility] PATHOLOGY XNYKSCQINI[address] [place] [address], [address]PDRLHBQH BLOOD COUNTon 48-15-8197Wreobupondb distribution width (RBC) [Ratio]15.6 %High11.5-14.5The [facility] ([facility]oldtHealth SystemComment on above:Performed By: #### CBC ####[facility] PATHOLOGY SWOFYIMQIR[address] [place] [address], [address]Sgvzkttvlt (Bld) [Volume fraction]30.1 %Low41.0-53.0The [facility] HospitalroHealth SystemComment on above: Performed By: #### CBC ####[facility] PATHOLOGY OZARCALSTU101[address] [place] [address], [address]Lwgdzpbjjl (Bld) [Mass/Vol]9.9 g/dLLow13.9-16.3The [facility] HospitalroHealth SystemComment on above:Performed By: #### CBC ####[facility] PATHOLOGY ZVIZWTTGRC[address] [place] [address], [address]TQL (RBC) [Entitic mass]30.5 ikRtpwab92.0-34.0The [facility] HospitalroHealth SystemComment on above:Performed By: #### CBC ####[facility] PATHOLOGY CSEMUSAQZT[address] [place] [address], [address]HNJZ (RBC) [Mass/Vol]32.8 g/yBFzfppr68.0-35.9The [facility] System Comment on above:Performed By: #### CBC ####[facility] PATHOLOGY WJMPLIVDPD[address] [place] [address], [address]MDW (RBC) [Entitic vol]93 fLNormal 80-100The [facility] HospitalroHealth SystemComment on above:Performed By: #### CBC ####[facility] PATHOLOGY QRDDRFHKHS[address] [place] [address], [address]Nrdrpobw mean volume (Bld) [Entitic vol]7.2 fLLow7.5-11.2The [facility] HospitalroHealth SystemComment on above:Performed By: #### CBC ####[facility] PATHOLOGY UMKYZOZIQZ[address] [place] [address], [address]Yupltqwyn (Bld) [#/Vol]396 10*3/pBYzftah633-560Dth [facility] ([facility]oldtHealth SystemComment on above:Performed By: #### CBC ####[facility] PATHOLOGY WOEZSJLUXO[address] [place] [address], [address]WEP (Bld) [#/Vol]3.25 10*6/uLLow4.50-5.90The [facility] HospitalroHealth SystemComment on above:Performed By: #### CBC ####[facility] PATHOLOGY EXVETAANQL108[address] [place] [address], [address]NQQ (Bld) [#/Vol]12.4 10*3/uLHigh4.5-11.5The [facility] SystemComment on above: Performed By: #### CBC ####[facility] PATHOLOGY SGTAZMNNXW[address] [place] [address], [address]Ufjxgtylei 72-94-8931Myadjixznbkwm Authentication Interface Message TextNormalThe [facility] SystemTranscription Authentication Interface Message TextNormalThe [facility] SystemMAGNESIUMon 05-24-2024 Magnesium [Mass/Vol]2.3 mg/dLNormal1.9-2.7The [facility] ([facility]ulmboldtTheSedge.org SystemComment on above:Result Comment: Hemolysis presentPerformed By: #### AMMON PRADO, PHOS ####[facility] PATHOLOGY JZUJHAGZNZ9762 [place], [address]QZRAYGRPYOgv 54-57-1580Kprehllna [Mass/Vol]3.0 mg/dLNormal2.5-5.0The [facility] ([facility]ul[facility]oldtTheSedge.org System Comment on above:Performed By: #### LLOYD PRADO8, PHOS ####[facility] PATHOLOGY UKHNQPKMIA9882 [place], [address]Hkgrgugj Noteson 66-93-2904Dpdqwpdswwmzo Authentication Interface Message [id number] Pt needs to go on BiPap- no sitter available per nurse sandblasting supervisor- this RN will sit outside pt room while on bipap and will have another RN or CP sit while attending to other pt. RT here in room and aware of plan.NormalThe [facility] ([facility]ulmboldtTheSedge.org SystemTranscription Authentication Interface Message TextNormElyria Memorial Hospitale [facility] ([facility]ulmboldtTheSedge.org SystemTranscription Authentication Interface Message TextNoCarePartners Rehabilitation HospitalTheSedge.org SystemTranscription Authentication Interface Message TextNoCritical access hospitalPoq Studio SystemXR CHEST AP OR PA 1 VIEWon [id number] CHEST AP OR PA [address]Elyria [address]Reputation[address]com [address] [facility]S HospitalPoq Studio SystemXR Chest Single viewon 41-30-8658LGOMMOJSRBK: XR CHEST AP OR PA 1 VIEW [...] significant change in pulmonary status. MACRO: None Arielle Gruber MD - 05/24/2024 EXAMINATION: XR CHEST AP [...] Chest Single viewOrdered By: Arielle Conklin on 04-11-1299LoteaYqoult Work Phone: XR FEMUR LEFT 1 VIEWon 00-40-7570LO FEMUR LEFT 1 VIEW NormalThe [facility] SystemXR PELVIS SINGLE VIEWon 07-30-7407AZ PELVIS SINGLE VIEWNormalThe St. [facility] HospitalroHealth SystemBASIC METABOLIC PANELon 40-06-9513Jbndr gap [Moles/Vol]11 mmol/CDoclir75-81Qmi [facility] SystemComment on above:Performed By: #### CH8, PHOS MG ####[facility] PATHOLOGY EJMSZGNLGP9369 [place], [address]Esgtdkn [Mass/Vol]8.1 mg/dLLow8.6-10.3The [facility] HospitalroHealth SystemComment on above:Performed By: #### CH8, PHOS MG ####[facility] PATHOLOGY QISBEFMUHS0790 [place], [address]Xjynxwop [Moles/Vol]98 mmol/AHwafrl84-837Jem St[facility]S HospitalroKettering [facility] SystemComment on above:Performed By: #### CH8, PHOS, MG ####[facility] PATHOLOGY LQYJIBPDXD5526 [place], [address]JF5 [Moles/Vol]31 mmol/CSmnplt77-57Bry [facility] ([facility]oldtHealth SystemComment on above:Performed By: #### CH8, PHOS, MG ####[facility] PATHOLOGY GXDQHJUOKO2169 [place], [address]Alcdlgfigp [Mass/Vol] 0.58 mg/dLLow0.70-1.30The [facility] SystemComment on above:Performed By: #### CHI VERDE MG ####[facility] PATHOLOGY USADAVGUJR1307 [place], [address]WYFDVYWSD GFR (CKD-EPI)97 mL/min/1.73sqmNormal>=60The [facility] SystemComment on above:Result Comment: 2020 CKD EPI [...] Inclusion of Race in Diagnosing Kidney Disease. Nigerian Journal of Kidney Diseases 2021;79(2):268-88.e1.2. N Engl J Med 1 Vol. 385 Issue 19 Pages 5482-0216Performed By: ###CHI BENAVIDES MG ####[facility] PATHOLOG[facility] LYNLERGBCZ8865 [place], [address]Spfesif [Mass/Vol]99 mg/xBIkdutr22-466Kmc [facility] SystemComment on above:Performed By: ###CHI BENAVIDES MG ####MHAlfonzo PATHOLOGY EANLMCJWVA3032 [place], [address]Dfnprwscn [Moles/Vol]4.0 mmol/LNormal3.5-5.0The [facility] SystemComment on above:Performed By: ###CHI BENAVIDES MG ####[facility] PATHOLOGY KEIQIIRCJU5638 [place], [address]Gwmked [Moles/Vol]136 mmol/PPfzorm838-982Rop [facility] SystemComment on above: Performed By: ###CHI BENAVIDES MG ####[facility] PATHOLOGY FIFFFQEAAZ2298 [place], [address]Ahzr nitrogen [Mass/Vol]21 mg/dLNormal7-25The [facility] HospitalroHealth SystemComment on above:Performed By: #### CH8, CHI, MG ####[facility] PATHOLOGY FAPYACHVVA0610 [place], [address]XXBKHQGG BLOOD COUNTon 91-65-2020Oypozdokqxb distribution width (RBC) [Ratio]16.2 %High 11.5-14.5The [facility] ([facility]oldtHealth SystemComment on above:Performed By: #### CBC ####[facility] PATHOLOGY RWZINJNHPR8574 [place], [address]Nwuqhnsand (Bld) [Volume fraction]31.1 %Low41.0-53.0The [facility] ([facility]oldtHealth SystemComment on above: Performed By: #### CBC ####[facility] PATHOLOGY SEFCPEGIXT[address] [place] [address], [address]Xlksettlmx (Bld) [Mass/Vol]10.2 g/dLLow13.9-16.3 The [facility] ([facility]oldtHealth SystemComment on above:Performed By: #### CBC ####[facility] PATHOLOGY WHPXQRQHYG4147 [place], [address]NVH (RBC) [Entitic mass]31.3 arTmgzdf66.0-34.0The [facility] ([facility]oldtHealth SystemComment on above:Performed By: #### CBC ####[facility] PATHOLOGY VHNJXDJWZB4092 [place], [address]BTDK (RBC) [Mass/Vol]32.8 g/cCYamcmc64.0-35.9The [facility] ([facility] Comment on above:Performed By: #### CBC ####[facility] PATHOLOGY PKQZWCCECV0321 [place], [address]GGV (RBC) [Entitic vol]96 fLNormal 80-100The [facility] ([facility]oldtHealth SystemComment on above:Performed By: #### CBC ####[facility] PATHOLOGY ETVYBDUZLW5221 [place], [address]Uizbdvky mean volume (Bld) [Entitic vol]6.7 fLLow7.5-11.2The [facility] HospitalroHealth SystemComment on above:Performed By: #### CBC ####S PATHOLOGY JWXKRUINKK8214 [place], [address]Lxvnwtkpo (Bld) [#/Vol]251 10*3/vCVapssv656-811Vuv [facility] HospitalroHealth SystemComment on above:Performed By: #### CBC ####[facility] PATHOLOGY QEIGANJOBJ9[address] [place] [address], [address]OXW (Bld) [#/Vol]3.26 10*6/uLLow4.50-5.90The [facility] HospitalroHealth SystemComment on above:Performed By: #### CBC ####[facility] PATHOLOGY VNCRNHLNGU[address] [place] [address], [address]OKW (Bld) [#/Vol]10.3 10*3/uLNormal4.5-11.5The [facility] HospitalroHealth SystemComment on above: Performed By: #### CBC ####[facility] PATHOLOGY XIKNPDADFQ914[address] [place] [address], [address]JRXIAKUMFih 05-89-0659Fyeuufchp [Mass/Vol]1.9 mg/dLNormal1.9-2.7The [facility] HospitalroHealth SystemComment on above:Performed By: #### CH8, PHOS, MG ####S PATHOLOGY IRISBFXMZP99[address] [place] [address], 44 [address]PHOSPHORUSon 77-45-7202Xybnedjix [Mass/Vol]2.4 mg/dLLow2.5-5.0The [facility] SystemComment on above:Performed By: #### CH8, PHOS, MG ####S PATHOLOGY GUJOVZPTTY5[address] [place] [address], [address]Nwwtlivn Noteson 69-08-1254Saqequepzqggt Authentication Interface Message TextNormElyria Memorial Hospitale St. [facility] HospitalroHealth SystemXR CHEST AP OR PA 1 VIEWon 51-59-3408FP CHEST AP OR PA 1 VIEW NormalThe [facility] SystemXR CHEST AP OR PA [address] [facility] HospitalroHealth System XR Chest Single viewon 44-02-8720MIXPRMKOSQA: XR CHEST AP OR PA 1 VIEW [...] Otherwise, unchanged pulmonary findings. [facility]HealthRadiology Study observation (narrative)[facility]roK[facility] Soin Medical CenterXR Chest Single viewOrdered By: Vignesh Higuera on 41-29-7477HambnNgacbq Work Phone: bASIC METABOLIC PANELon 24-21-2362Vlirv gap [Moles/Vol]9 mmol/TAbk28-17Has [facility] SystemComment on above:Performed By: #### MG, CH8, PHOS ####[facility] PATHOLOGY YSYDYCIZUU2455 [place], [address]Mmcnsxu [Mass/Vol]7.9 mg/dLLow8.6-10.3The [facility] System Comment on above:Performed By: #### AMMON PRADO PHOS ####[facility] PATHOLOGY KGZUNBOOYA7913 [place], [address]Nfyrhual [Moles/Vol]101 mmol/BNkmoua52-119Bli [facility] HospitalroHealth SystemComment on above:Performed By: #### AMMON PRADO PHOS ####[facility] PATHOLOGY LNEPJWJEYS6700 [place], [place], [phone] -[address]KS1 [Moles/Vol]30 mmol/KWgtorp21-80Nxf [facility] HospitalroHealth SystemComment on above:Performed By: #### AMMON PRADO PHOS ####[facility] PATHOLOGY XHXPGCFLNA3203 [place], [address]Tjqfmiitte [Mass/Vol]0.62 mg/dLLow 0.70-1.30The [facility] HospitalroHealth SystemComment on above:Performed By: #### AMMON PRADO PHOS ####[facility] PATHOLOGY NYWFEYLJME7274 [place], ESTIMATED GFR (CKD-EPI)95 mL/min/1.73sqmNormal>=60The [facility] SystemComment on above:Result Comment: 2020 CKD EPI [...] Inclusion of Race in Diagnosing Kidney Disease. [place] Journal of Kidney Diseases 202;79(2):268-88.e1.2. N Engl J Med 1 Vol. 385 Issue 19 Pages 7908-8828Performed By: #### AMMON PRADO PHOS ####[facility] PATHOLOGY YTRSABRKXK4841 [place], [address]Gclpabx [Mass/Vol]117 mg/rYEreh54-603Bye [facility] SystemComment on above:Performed By: #### AMMON PRADO, PHOS ####[facility] PATHOLOGY BWSGYGVOIY2788 [place], Potassium [Moles/Vol]3.6 mmol/LNormal3.5-5.0The [facility] ([facility] Comment on above:Performed By: #### AMMON PRADO PHOS ####[facility] PATHOLOGY FELGTHOVEV6627 [place], [address]Gwqnpw [Moles/Vol]136 mmol/NNhzpli201-649Bkh [facility] ([facility]tHealth SystemComment on above:Performed By: #### AMMON PRADO, CHI ####[facility] PATHOLOGY KWHHWXDYRJ2621 [place], Urea nitrogen [Mass/Vol]19 mg/dLNormal7-25The [facility] SystemComment on above:Performed By: #### AMMON PRADO PHOS ####[facility] PATHOLOGY KGTFJTPUDG7[address] [place] [address], [address]PFTJGMPL BLOOD COUNTon 05-22-2024 Erythrocyte distribution width (RBC) [Ratio]16.2 %High11.5-14.5The [facility] SystemComment on above:Performed By: #### CBC ####[facility] PATHOLOGY WDTPXMVVZE5648 [place], [address]Xszpuktlbh (Bld) [Volume fraction]27.5 %Low41.0-53.0The [facility] SystemComment on above:Performed By: #### CBC ####[facility] PATHOLOGY LOEKPYCSNF2066 [place], Hemoglobin (Bld) [Mass/Vol]9.3 g/dLLow13.9-16.3The [facility] SystemComment on above:Performed By: #### CBC ####[facility] PATHOLOGY UFZIZWSTDU6501 [place], [address]JNL (RBC) [Entitic mass]31.8 sqAhfgof34.0-34.0The [facility] SystemComment on above:Performed By: #### CBC ####[facility] PATHOLOGY EEBQQHKQUT[address] [place] [address], [address]YAXA (RBC) [Mass/Vol] 33.8 g/qIGsbwdb77.0-35.9The [facility] HospitalroHealth SystemComment on above:Performed By: #### CBC ####[facility] PATHOLOGY SPTJYTXMXE[address] [place] [address], [address]IVK (RBC) [Entitic vol]94 kORmhuef72-792Jzk [facility] SystemComment on above:Performed By: #### CBC ####[facility] PATHOLOGY DCXUOEHQOT[address] [place] [address], [address]Campifvc mean volume (Bld) [Entitic vol]6.5 fLLow 7.5-11.2The [facility] HospitalroHealth SystemComment on above:Performed By: #### CBC ####[facility] PATHOLOGY JDCFQXHFHO[address] [place] [address], [address]Rcxeevpcr (Bld) [#/Vol]214 10*3/xSYeqpzi846-073Mke [facility] SystemComment on above: Performed By: #### CBC ####[facility] PATHOLOGY VXSHFAYRBR[address] [place] [address], [address]IJK (Bld) [#/Vol]2.93 10*6/uLLow4.50-5.90The [facility] HospitalroHealth SystemComment on above:Performed By: #### CBC ####[facility] PATHOLOGY THSWZTVIVC[address] [place] [address], [address]FVG (Bld) [#/Vol]8.7 10*3/uLNormal4.5-11.5The [facility] HospitalroHealth SystemComment on above:Performed By: #### CBC ####[facility] PATHOLOGY OLOULIESLI[address] [place] [address], MAGNESIUMon 58-36-7952Ibqeykmji [Mass/Vol]2.1 mg/dLNormal1.9-2.7The [facility] SystemComment on above:Performed By: #### MG, CH8, PHOS ####[facility] PATHOLOGY SHXZEQDHWK[address] [place] [address], [address]AVWLGCWXTSww 05-22-2024 Phosphate [Mass/Vol]2.0 mg/dLLow2.5-5.0The Metro[facility] SystemComment on above: Performed By: #### MG, CH8, PHOS ####[facility] [id number] [place], [address]Kzcldlfk Noteson [id number] Authentication Interface Message TextESP catheter removed, blue tip in-tact. No signs of infection at site or hematoma formation. Adhesive bandage placed over puncture site. Rahul Azevedo DO AnesthesiologyNoShelby Memorial Hospital SystemTranscription Authentication Interface Message TextNormOhioHealth [facility] SystemProgress Notes - NoteWriteron [id number] Authentication Interface Message [id number]: DO Kyle notified of pt monitor alarming high HR. HR fluctuating between 115-130's. EKG obtained, BP 139/77(94) O2 94%. Pt alert and oriented. No new orders at this time.NormalThe [facility] SystemXR CHEST AP OR PA 1 VIEWon [id number] CHEST AP OR PA 1 VIEWNormOhioHealth Grove City [facility] SystemXR Chest Single viewon [id number]: XR CHEST AP OR PA 1 VIEW [...] findings similar to prior. No appreciable pneumothorax. Vignesh Luevano MD - 05/22/2024 EXAMINATION: XR CHEST AP [...] Chest Single viewOrdered By: Vignesh Higuera on [id number] Work Phone: aNTM FXA-LMW HEPARINon [id number] FXA-LMW HEPARIN ASSAY0.37 IU/mLNormalThe [facility] SystemComment on above:Order Comment: The recommended therapeutic range for treatment of thrombosis with Low Molecular Weight Heparin is 0.5 - 1.0 IU/mLThe recommended range for VTE prophylaxis with Low Molecular Weight Heparin is 0.2 - 0.4 IU/mL.Performed By: #### ANGELINA ####[facility] NSZHRXNVAS7217 [place], [address]QGTUR METABOLIC PANELon 26-64-4591Pvhzi gap [Moles/Vol]10 mmol/OZqnjts39-95Yyd [facility] SystemComment on above:Performed By: #### CH8, PHOS, MG ####[facility] VAYUKPJJRF3399 [place], [address]Ghpvpcq [Mass/Vol]7.3 mg/dLLow8.6-10.3The [facility] SystemComment on above:Performed By: #### CH8, PHOS, MG ####[facility] IRDQEOPPQK4718 [place], [address]Wosrunup [Moles/Vol]100 mmol/GThmegu52-394Qjl [facility] SystemComment on above:Performed By: ###CHI BENAVIDES MG ####[facility] PPGMBRKROF6365 [place], [address]KC4 [Moles/Vol]26 mmol/ACepljj07-33Hio [facility] ([facility] SystemComment on above:Performed By: ###CHI BENAVIDES MG ####[facility] PDXUCUPOYS2965 [place], [address]Cfesrsqgax [Mass/Vol]0.81 mg/dLNormal0.70-1.30The [facility] SystemComment on above:Performed By: ###CHI BENAVIDES MG ####[facility] GUOUMEJCNU3648 [place], [address]KNGPZXPDL GFR (CKD-EPI)88 mL/min/1.73sqmNormal>=60The [facility] SystemComment on above: Result Comment: 2020 CKD [...] Inclusion of Race in Diagnosing Kidney Disease. Nigerian Journal of Kidney Diseases 2021;79(2):268-88.e1.2. N Engl J Med 2020 Vol. 385 Issue 19 Pages 1172-2000Performed By: ###CHI BENAVIDES MG ####[facility] NBHSFADNXD7448 [place], [address]Cwijtje [Mass/Vol]160 mg/bUCrsp10-996Ppm [facility] SystemComment on above:Performed By: ###CHI BENAVIDES MG ####[facility] EIAVDVZJFI6657 [place], [place], [address]Potassium [Moles/Vol]4.5 mmol/LNormal3.5-5.0The [facility] System Comment on above:Performed By: #### CHI VERDE MG ####S PATHOLOGY TVREIMIPXU2542 [place], [address]Nujkiz [Moles/Vol]131 mmol/UBkc553-932Fck [facility]ro[facility] SystemComment on above:Performed By: #### CH8, PHOS, MG ####[facility] PATHOLOGY FXFBMECALS6028 [place], [place], [address]Urea nitrogen [Mass/Vol]23 mg/dLNormal7-25The [facility] SystemComment on above:Performed By: #### CH8, PHOS, MG ####[facility] PATHOLOGY DGHQWRUGUQ4673 [place], [address]CKAYB GAS, ARTERIALon 11-38-5706VN JOSEPH 2.9 mmol/LNormal-2.0-3.0The [facility] Hospitalro[facility] SystemComment on above:Performed By: #### CR BGA ####[facility] PATHOLOGY FUABHIAUON[address] [place] [address], [address]QQ KLU358.6 mm HgLow35.0-45.0The [facility] HospitalroHealth SystemComment on above: Performed By: #### CR BGA ####[facility] PATHOLOGY AKSNPKVSLH[address] [place] [address], [address]GQ PHA7.073Lwqp9.350-7.450The [facility] Comment on above:Performed By: #### CR BGA ####[facility] PATHOLOGY XHGWGSQGNP[address] [place] [address], [address]XQ PO283 mm MzOrnplu27-033Kmc [facility] HospitalroHealth SystemComment on above:Performed By: #### CR BGA ####[facility] PATHOLOGY BVCEAVRJSW[address] [place] [address], [address]PZV3 (CATEGORY)50% NormalThe St. [facility] HospitalroHealth SystemComment on above:Performed By: #### CR BGA ####[facility] PATHOLOGY HBIRXWUESI[address] [place] [address], [address]THL0 (Bld) [Moles/Vol]26 mmol/UTeqbut17-01Mgp [facility] HospitalroHealth SystemComment on above:Performed By: #### CR BGA ####[facility] PATHOLOGY HXJRIVVPZI8[address] [place] [address], [address]YHLJXgwnEnyusvRnf [facility] SystemComment on above:Performed By: #### CR BGA ####[facility] PATHOLOGY BZIADJMMLI[address] [place] [address], [address]Ipbran saturation in Blood97.4 %Npqvba47.0-99.0The [facility] Comment on above:Performed By: #### CR BGA ####[facility] PATHOLOGY IRKCVXHXOB[address] [place] [address], [address]DGQLATLT BLOOD COUNTon 05-21-2024 Erythrocyte distribution width (RBC) [Ratio]16.3 %High11.5-14.5The [facility] SystemComment on above:Performed By: #### CBC ####[facility] PATHOLOGY UNFGTIVKKF[address] [place] [address], [address]Zvkzblykwy (Bld) [Volume fraction]25.4 %Low41.0-53.0The [facility] SystemComment on above:Performed By: #### CBC ####[facility] PATHOLOGY FDHFPEJAUW[address] [place] [address], Hemoglobin (Bld) [Mass/Vol]8.5 g/dLLow13.9-16.3The [facility] SystemComment on above:Performed By: #### CBC ####[facility] PATHOLOGY EPCPCGQYGZ[address] [place] [address], [address]GXI (RBC) [Entitic mass]31.3 heNodalj34.0-34.0The [facility] SystemComment on above:Performed By: #### CBC ####[facility] PATHOLOGY LBSJMVJERE[address] [place] [address], [address]RYBZ (RBC) [Mass/Vol] 33.6 g/kPLvzhzt06.0-35.9The [facility] SystemComment on above:Performed By: #### CBC ####[facility] PATHOLOGY YJQFSKTCSN[address] [place] [address], [address]UNF (RBC) [Entitic vol]93 uREvezfw13-830Pvj [facility] ([facility] SystemComment on above:Performed By: #### CBC ####[facility] DGOBJHDTWQ0631 [place], [address]Djjgsqqe mean volume (Bld) [Entitic vol]6.9 fLLow 7.5-11.2The [facility] SystemComment on above:Performed By: #### CBC ####S PATHOLOGY CLAJEOGFHE35[address] [place] [address], [address]Btypihypl (Bld) [#/Vol]159 10*3/zCPefcoc860-449Tlr [facility] HospitalroHealth SystemComment on above: Performed By: #### CBC ####[facility] PATHOLOGY IPEAPFKQAL[address] [place] [address], [address]GXY (Bld) [#/Vol]2.73 10*6/uLLow4.50-5.90The [facility] Hospitalro[facility] SystemComment on above:Performed By: #### CBC ####[facility] PATHOLOGY QVHPLYHQOS[address] [place] [address], [address]EFC (Bld) [#/Vol]7.4 10*3/uLNormal4.5-11.5The [facility] HospitalroHealth SystemComment on above:Performed By: #### CBC ####[facility] PATHOLOGY LTXXVFBRQP[address] [place] [address], Care Plan Noteon 00-44-6410Korurotkgmgsl Authentication Interface Message Text NormalThe St. [facility] HospitalroHealth SystemConsultson [phone] Authentication Interface Message TextNormalThe St. [facility] HospitalroHealth SystemMAGNESIUMon 05-21-2024 Magnesium [Mass/Vol]1.9 mg/dLNormal1.9-2.7The [facility] HospitalroHealth SystemComment on above:Performed By: #### CH8, PHOS, MG ####S PATHOLOGY WRZAORLVRL69[address] [place] [address], [address]AXPMSAGMMYdx 22-10-8500Mwwrmlkvz [Mass/Vol]2.7 mg/dLNormal2.5-5.0The [facility] HospitalroHealth SystemComment on above:Performed By: #### CH8, PHOS, MG ####S PATHOLOGY ARLTCMQVJU[address] [place] [address], [address]Iljfvyen Noteson 60-03-4250Tmysetbocpwet Authentication Interface Message TextNormalThe [facility] SystemTranscription Authentication Interface Message TextNormalThe [facility] SystemTranscription Authentication Interface Message TextNormalThe [facility] SystemXR ABDOMEN AP 1 VIEWon 04-46-6430KR ABDOMEN AP 1 VIEWNormalThe [facility] SystemXR CHEST AP OR PA 1 VIEWon 29-75-7431QB CHEST AP OR PA 1 VIEWNormalThe [facility] SystemXR CHEST AP OR PA 1 VIEWNormalThe [facility] SystemXR CHEST AP OR PA 1 VIEWNormal The [facility] SystemXR Chest Single viewon 60-61-0400ABOPXEPERVO: XR CHEST AP OR PA 1 VIEW [...] The tip is not included in the almea-vq-ogrg. Lungs and pleura: Similar loculated right-sided pleural [...] bilateral pulmonary opacities, likely atelectasis. MACRO: None Jerrell Iglesias MD - 05/21/2024 EXAMINATION: XR CHEST AP [...] The tip is not included in the fbwma-hk-jwsz. Lungs and pleura: Similar loculated right-sided pleural [...] bilateral pulmonary opacities, likely atelectasis. MACRO: None [facility] ([facility]HealthRadiology Study observation (narrative)[facility]XR Chest Single viewOrdered By: Jerrell Henry on 28-07-3077XfxqvRjjhau Work Phone: anesthesia Postprocedure Evaluationon 05-20-2024 [employer] Supervisor Authentication Interface Message TextNoGreenButtonElyria Memorial HospitalReputation.com [facility] ([facility]tTheSedge.org System Anesthesia Preprocedure Evaluationon 25-46-5533Zudjcmkfipeij Authentication Interface Message TextNormElyria Memorial HospitalReputation.com [facility] SystemAnesthesia Transfer Of Careon 63-37-1613Fgskgrbcdirsw Authentication Interface Message TextNormOhioHealth [facility] SystemBASIC METABOLIC PANELon 11-99-5535Agifz gap [Moles/Vol]10 mmol/GBcthqy39-11Hvf [facility] SystemComment on above:Performed By: #### CH8 ####[facility] JIYYEYRLNB1439 [place], Calcium [Mass/Vol]7.6 mg/dLLow8.6-10.3The [facility] HospitalroHealth SystemComment on above: Performed By: #### CH8 ####[facility] PATHOLOGY NYCSMZLFTR8677 [place], [address]Nvvrsmox [Moles/Vol]101 mmol/EFnaukp11-447Omp [facility] SystemComment on above:Performed By: #### CH8 ####[facility] PATHOLOGY GNQFWFLZON7777 [place], [address]EO8 [Moles/Vol]27 mmol/PVsipxs19-53Aii [facility] SystemComment on above:Performed By: #### CH8 ####[facility] PATHOLOGY VFRGLSKHPH0219 [place], Creatinine [Mass/Vol]0.80 mg/dLNormal0.70-1.30The [facility] SystemComment on above:Performed By: #### CH8 ####[facility] PATHOLOGY WXCUTONBGS5594 [place], [address]LYGNQFPVF GFR (CKD-EPI)88 mL/min/1.73sqmNormal>=60 The [facility] SystemComment on above:Result Comment: 2020 CKD EPI [...] Inclusion of Race in Diagnosing Kidney Disease. Nigerian Journal of Kidney Diseases 2021;79(2):26 8-88.e1.2. N Engl J Med 1 Vol. 385 Issue 19 Pages 0487-4675Performed By: #### CH8 ####[facility] PATHOLOGY UWLEIGFPOM0401 [place], Glucose [Mass/Vol]125 mg/zTFsok38-175Vdz [facility] SystemComment on above: Performed By: #### CH8 ####[facility] ZQFOECGTZS[address] [place] [address], [address]Rdvonwkwd [Moles/Vol]4.5 mmol/LNormal3.5-5.0The [facility] SystemComment on above:Performed By: #### CH8 ####[facility] PATHOLOGY XUEPMVBVCJ[address] [place] [address], [address]Pangeu [Moles/Vol]133 mmol/ZFqc131-027Htr [facility] HospitalroHealth SystemComment on above:Performed By: #### CH8 ####[facility] PATHOLOGY KXGTIEDISJ6[address] [place] [address], [address]Ovza nitrogen [Mass/Vol]21 mg/dLNormal7-25The [facility] SystemComment on above: Performed By: #### CH8 ####[facility] PATHOLOGY NWRSMLDOGQ9[address] [place] [address], [address]Hwkpl gap [Moles/Vol]10 mmol/EJowfik53-42Tzq [facility] SystemComment on above:Performed By: #### CK, MG, PHOS, TRIG, CH8 ####[facility] PATHOLOGY UABLEUMDSB89[address] [place] [address], Calcium [Mass/Vol]7.9 mg/dLLow8.6-10.3The [facility] Hospitalro[facility] SystemComment on above: Performed By: #### CK, MG, PHOS, TRIG, CH8 ####[facility] PATHOLOGY FLDEWSZATD[address] [place] [address], [address]Lhrcjifj [Moles/Vol]99 mmol/LNormal 98-107The [facility] Hospitalro[facility] SystemComment on above:Performed By: #### CK, MG, PHOS, TRIG, CH8 ####[facility] PATHOLOGY WRAZUDPHAJ[address] [place] [address], [address]JO1 [Moles/Vol]26 mmol/UNyhwpu96-31Bxl [facility] HospitalroHealth SystemComment on above:Performed By: #### CK, MG, PHOS, TRIG, CH8 ####[facility] PATHOLOGY EJDLBWMNIW[address] [place] [address], [address]Wvpworwouq [Mass/Vol] 0.93 mg/dLNormal0.70-1.30The [facility] SystemComment on above:Performed By: #### CK, MG, PHOS, TRIG, CH8 ####S PATHOLOGY CIGBRXCQAJ3090 [place], [address]LQSYICERR GFR (CKD-EPI)82 mL/min/1.73sqmNormal>=60 The [facility] SystemComment on above:Result Comment: 2020 CKD EPI [...] Inclusion of Race in Diagnosing Kidney Disease. Nigerian Journal of Kidney Diseases 2021;79(2):26 8-88.e1.2. N Engl J Med 2020 Vol. 385 Issue 19 Pages 5232-7347Performed By: #### CK, MG, PHOS, TRIG, CH8 ####[facility] FWKVKIOMFI6757 [place], [address]Bpphdcz [Mass/Vol]126 mg/lWPjtd81-139Tyv [facility] SystemComment on above:Performed By: #### CK, MG, PHOS, TRIG, CH8 ####[facility] UARCGOXSHW5031 [place], Potassium [Moles/Vol]4.3 mmol/LNormal3.5-5.0The [facility] SystemComment on above:Performed By: #### CK, MG, PHOS, TRIG, CH8 ####[facility] CKDSWSWFAK4304 [place], [address]Vqjrqw [Moles/Vol]131 mmol/CXyd970-374Voa [facility] SystemComment on above:Performed By: #### CK, MG, PHOS, TRIG, CH8 ####[facility] AOMNJDKCKQ7947 [place], [address]Ctkq nitrogen [Mass/Vol]30 mg/dLHigh7-25The [facility] System Comment on above:Performed By: #### CK, MG, PHOS, TRIG, CH8 ####[facility] PATHOLOG[facility] UZORPNMLBC[address] [place] [address], [address]VLPNO GAS, ARTERIALon 67-77-5545BN ABE1.6 mmol/LNormal-2.0-3.0The [facility] SystemComment on above: Performed By: #### CR GLU, CR BGA, CR COOX, CR ICA, LACT, CR LYTES ####[facility] PATHOLOGY NGZZJEDXHT6467AhgigEzmmnj[address] [place] [address], [address]KG SDC502.6 mm LwDmav62.0-45.0The [facility] ([facility]oldtHealth SystemComment on above:Performed By: #### CR GLU, CR BGA, CR COOX, CR ICA, LACT, CR LYTES ####[facility] PATHOLOG[facility] TZOMQQXRJF[address] [place] [address], [address]GM PHA7.869Dcy7.350-7.450The [facility] SystemComment on above:Performed By: #### CR GLU, CR BGA, CR COOX, CR ICA, LACT, CR LYTES ####[facility] PATHOLOG[facility] RCPYYZTSXS4604LkejfCaibqc[address] [place] [address], [address]TG YF4015 mm HwSaqy09-751Ftq [facility] System Comment on above:Performed By: #### CR GLU, CR BGA, CR COOX, CR ICA, LACT, CR LYTES ####[facility] PATHOLOG[facility] HFKHOPJBSP9990XyobrXgvxjk[address] [place] [address], HCO3 (Bld) [Moles/Vol]27 mmol/UFatioo49-63Xai [facility] SystemComment on above:Performed By: #### CR GLU, CR BGA, CR COOX, CR ICA, LACT, CR LYTES ####[facility] PATHOLOG[facility] VMEWWEJZRE1241ZgplqAvygrt[address] [place] [address], [address]Ijtnwq saturation in Blood98.7 %Dgvzfj91.0-99.0The [facility] SystemComment on above: Performed By: #### CR GLU, CR BGA, CR COOX, CR ICA, LACT, CR LYTES ####[facility] PATHOLOG[facility] DJRCBESMGZ0517YiqsbMfkfmf[address] [place] [address], [address]OW ABE1.7 mmol/LNormal-2.0-3.0The [facility] SystemComment on above:Performed By: #### CR COOX, CR LYTES, LACT, CR GLU, CR BGA, CR ICA ####[facility] PATHOLOG[facility] WZSTKEUTDD[address] [place] [address], [address]JH ENZ288.2 mm YpZlfn64.0-45.0The [facility] SystemComment on above:Performed By: #### CR COOX, CR LYTES, LACT, CR GLU, CR BGA, CR ICA ####[facility] PATHOLOG[facility] NDEYOAYPUR2057HcrfyVposqg[address] [place] [address], [address]WQ PHA7.978Buw2.350-7.450The [facility] System Comment on above:Performed By: #### CR COOX, CR LYTES, LACT, CR GLU, CR BGA, CR ICA ####[facility] PATHOLOG[facility] DTDKKNMDXG6192TrhssIfnvbs[address] [place] [address], [address]PX UX5515 mm UjEpzt16-185Rvx [facility] SystemComment on above:Performed By: #### CR COOX, CR LYTES, LACT, CR GLU, CR BGA, CR ICA ####[facility] PATHOLOG[facility] DTULRQPADO5679DbenaIoukvh[address] [place] [address], [address]ZOJ9 (Bld) [Moles/Vol]28 mmol/VNxajql10-83Qgt [facility] SystemComment on above:Performed By: #### CR COOX, CR LYTES, LACT, CR GLU, CR BGA, CR ICA ####[facility] PATHOLOG[facility] JHQSEGQFMY[address] [place] [address], [address]Mcfmhi saturation in Blood98.6 %Normal 95.0-99.0The [facility] SystemComment on above:Performed By: #### CR COOX, CR LYTES, LACT, CR GLU, CR BGA, CR ICA ####[facility] PATHOLOG[facility] HLREAGAKPW1697RjhyoAcknjs[address] [place] [address], [address]GJ ABE2.5 mmol/LNormal-2.0-3.0The [facility] SystemComment on above:Performed By: #### LACT, CR BGA ####[facility] PATHOLOG[facility] EERIFIQANG56[address] [place] [address], [address]LO KOA389.2 mm HgNormal 35.0-45.0The [facility] SystemComment on above:Performed By: #### LACT, CR BGA ####[facility] PATHOLOG[facility] YSDLPBGVKK2232 [place], [address]LH PHA7.378Oruwkd3.350-7.450The [facility] SystemComment on above:Performed By: #### LACT, CR BGA ####[facility] PATHOLOG[facility] TNXKUEUABM[address] [place] [address], [address]GN PO288 mm ZwFcnots37-782Mju [facility] SystemComment on above: Performed By: #### LACT, CR BGA ####[facility] PATHOLOG[facility] AVYJLHYNTK[address] [place] [address], [address]TJH4 (CATEGORY)60%NormalThe [facility] System Comment on above:Performed By: #### LACT, CR BGA ####[facility] PATHOLOG[facility] RUNXKPXHTN[address] [place] [address], [address]WZR2 (Bld) [Moles/Vol] 27 mmol/FIzoqvw55-96Kxh [facility] SystemComment on above:Performed By: #### LACT, CR BGA ####[facility] PATHOLOG[facility] GTSHGXPVIF[address] [place] [address], [address]WTXHRfzuAznuxpXus [facility] SystemComment on above:Performed By: #### LACT, CR BGA ####[facility] PATHOLOG[facility] YCDFPZLBQH[address] [place] [address], [address]Ipiylc saturation in Blood97.2 %Fgshrl10.0-99.0The [facility] SystemComment on above:Performed By: #### LACT, CR BGA ####[facility] PATHOLOG[facility] INCEAWMFRI[address] [place] [address], [address]Igndd Attestationon 86-09-7919Gildwfbjncxpv Authentication Interface Message TextNoSumma HealthCALCIUM, IONIZEDon 10-63-3886BY ICA1.14 mmol/LLow1.15-1.33The [facility] SystemComment on above:Result Comment: This test was developed, and its performance characteristics determined by the Department of Pathology of The [facility]. It has not been cleared or approved by the FDA. This test is used for clinical purposes only.Performed By: #### CR GLU, CR BGA, CR COOX, CR ICA, LACT, CR LYTES ####[facility] PATHOLOG[facility] GOZOLFJGXQ4773AcaopQklezm[address] [place] [address], [address]EX ICA1.19 mmol/LNormal1.15-1.33The [facility] SystemComment on above:Result Comment: This test was developed, and its performance characteristics determined by the Department of Pathology of [facility]. It has not been cleared or approved by the FDA. This test is used for clinical purposes only.Performed By: #### CR COOX, CR LYTES, LACT, CR GLU, CR BGA, CR ICA ####[facility] PATHOLOG[facility] YOAQBUIQOF8358StyypTqnltb[address] [place] [address], [address]UZ-PBOIPLTPix 31-53-0875XFVUAKTDYCCTYLLJV6.0 %High0.5-1.5The [facility] SystemComment on above:Performed By: #### CR GLU, CR BGA, CR COOX, CR ICA, LACT, CR LYTES ####[facility] PATHOLOG[facility] AWKKNSVTER5602UrpgaVoktnb[address] [place] [address], [address]PH HBMET1.0 %Normal0.0-1.5The [facility] Comment on above:Performed By: #### CR GLU, CR BGA, CR COOX, CR ICA, LACT, CR LYTES ####[facility] PATHOLOG[facility] CNKVTVKOKF9230ZfacvOxfhzb[address] [place] [address], Hematocrit (Bld) [Volume fraction]27.8 %Low42.0-54.0The [facility] Comment on above:Performed By: #### CR GLU, CR BGA, CR COOX, CR ICA, LACT, CR LYTES ####[facility] PATHOLOG[facility] OPKKAFXUHH7157NwhztSlkgtq[address] [place] [address], Hemoglobin (Bld) [Mass/Vol]8.9 g/dLLow13.5-17.5The [facility] SystemComment on above:Performed By: #### CR GLU, CR BGA, CR COOX, CR ICA, LACT, CR LYTES ####[facility] PATHOLOG[facility] AAAUQMZRFQ2359IjqhxPoltcn[address] [place] [address], [address]AXHGSRTBDJXTK 95.7 %Oynbnn89.0-98.0The [facility] SystemComment on above:Performed By: #### CR GLU, CR BGA, CR COOX, CR ICA, LACT, CR LYTES ####[facility] PATHOLOG[facility] KECABDIYXX[address] [place] [address], [address]WQAEWEEDZRFIUWBNM5.8 %High0.5-1.5The [facility] SystemComment on above:Performed By: #### CR COOX, CR LYTES, LACT, CR GLU, CR BGA, CR ICA ####[facility] PATHOLOG[facility] FZTYXFGHFR2568AclmuTetzlv[address] [place] [address], [address]YP HBMET1.1 %Normal0.0-1.5The [facility] System Comment on above:Performed By: #### CR COOX, CR LYTES, LACT, CR GLU, CR BGA, CR ICA ####[facility] PATHOLOG[facility] SNIMLIPLCM6842UecrxAactrc[address] [place] [address], Hematocrit (Bld) [Volume fraction]25.0 %Low42.0-54.0The [facility] System Comment on above:Performed By: #### CR COOX, CR LYTES, LACT, CR GLU, CR BGA, CR ICA ####[facility] PATH[facility] ISDHBRZOTS3033CwptjCaayrm[address] [place] [address], Hemoglobin (Bld) [Mass/Vol]8.0 g/dLLow13.5-17.5The [facility] SystemComment on above:Performed By: #### CR COOX, CR LYTES, LACT, CR GLU, CR BGA, CR ICA ####[facility] PATHOLOG[facility] OUTPOVDYEQ7796DuygiBmyonh[address] [place] [address], [id number] 95.7 %Mrxwxt21.0-98.0The [facility] SystemComment on above:Performed By: #### CR COOX, CR LYTES, LACT, CR GLU, CR BGA, CR ICA ####[facility] [id number] [place] [address], [id number] BLOOD COUNTon 05-20-2024 Erythrocyte distribution width (RBC) [Ratio]15.6 %High11.5-14.5The [facility] SystemComment on above:Performed By: #### CBC ####[facility] PATH[facility] [id number] [place], [phone] (Bld) [Volume fraction]30.5 %Low41.0-53.0The [facility] SystemComment on above:Performed By: #### CBC ####[facility] PATH[facility] [id number] [place] [address], Hemoglobin (Bld) [Mass/Vol]10.5 g/dLLow13.9-16.3The [facility] SystemComment on above:Performed By: #### CBC ####[facility] AHPOONNRGE[address] [place] [address], [phone] (RBC) [Entitic mass]31.5 kgMwzuxh56.0-34.0The [facility] ([facility] SystemComment on above:Performed By: #### CBC ####[facility] PATH[facility] [id number] [place] [address], [phone] (RBC) [Mass/Vol] 34.4 g/iIYutbqp93.0-35.9The [facility] ([facility] SystemComment on above:Performed By: #### CBC ####[facility] PATHOLOGY UOFBBYBHNU[address] [place] [address], [address]ESA (RBC) [Entitic vol]92 lOXpnnsf40-569Cch [facility] ([facility]oldtHealth SystemComment on above:Performed By: #### CBC ####[facility] PATHOLOGY QCZLRSCPPO[address] [place] [address], [address]Pviglqye mean volume (Bld) [Entitic vol]6.4 fLLow 7.5-11.2The [facility] ([facility]oldtHealth SystemComment on above:Performed By: #### CBC ####[facility] PATHOLOGY NCHABSNFPC[address] [place] [address], [address]Aozwzcwci (Bld) [#/Vol]183 10*3/oOGdwhhq665-747Vpi [facility] ([facility]oldtHealth SystemComment on above: Performed By: #### CBC ####[facility] PATHOLOGY WRRLQXXIFL644[address] [place] [address], [address]POK (Bld) [#/Vol]3.33 10*6/uLLow4.50-5.90The [facility] HospitalroHealth SystemComment on above:Performed By: #### CBC ####[facility] PATHOLOGY KKVSTHIXCH[address] [place] [address], [address]DHD (Bld) [#/Vol]8.5 10*3/uLNormal4.5-11.5The [facility] SystemComment on above:Performed By: #### CBC ####[facility] PATHOLOGY OSYCUCBRMM[address] [place] [address], Erythrocyte distribution width (RBC) [Ratio]14.7 %High11.5-14.5The [facility] HospitalroHealth SystemComment on above:Performed By: #### CBC ####[facility] PATHOLOGY ZCKGGCCXJQ[address] [place] [address], [address]Vczvowvjvr (Bld) [Volume fraction]23.7 %Low41.0-53.0The [facility] HospitalroHealth SystemComment on above:Performed By: #### CBC ####[facility] PATHOLOGY LSMDNIGTMI[address] [place] [address], Hemoglobin (Bld) [Mass/Vol]7.9 g/dLLow13.9-16.3The [facility] HospitalroHealth SystemComment on above:Performed By: #### CBC ####[facility] PATHOLOGY VECOBGHTVW[address] [place] [address], [address]QBH (RBC) [Entitic mass]32.6 owEekrtd71.0-34.0The [facility] HospitalroHealth SystemComment on above:Performed By: #### CBC ####[facility] PATHOLOGY BCKCOVNNAE[address] [place] [address], [address]IZZM (RBC) [Mass/Vol] 33.5 g/qWJkamoa07.0-35.9The [facility] HospitalroHealth SystemComment on above:Performed By: #### CBC ####[facility] PATHOLOGY VVADIXDPES[address] [place] [address], [address]YUA (RBC) [Entitic vol]97 iNWfargn57-298Qye [facility] HospitalroHealth SystemComment on above:Performed By: #### CBC ####[facility] PATHOLOGY MXEJTRINVI[address] [place] [address], [address]Aatcurxw mean volume (Bld) [Entitic vol]6.5 fLLow 7.5-11.2The [facility] HospitalroHealth SystemComment on above:Performed By: #### CBC ####[facility] PATHOLOGY RWCCGVPIOQ[address] [place] [address], [address]60[address]Ddaggednb (Bld) [#/Vol]177 10*3/mLDayczo942-947Ejg [facility] SystemComment on above: Performed By: #### CBC ####[facility] PATHOLOGY QSBHSFGARC[address] [place] [address], [address]BUK (Bld) [#/Vol]2.43 10*6/uLLow4.50-5.90The [facility] HospitalroHealth SystemComment on above:Performed By: #### CBC ####[facility] PATHOLOGY YNEWFBKIJS[address] [place] [address], [address]LMV (Bld) [#/Vol]6.9 10*3/uLNormal4.5-11.5The [facility] HospitalroHealth SystemComment on above:Performed By: #### CBC ####[facility] PATHOLOGY TKTVBYWOIP[address] [place] [address], Erythrocyte distribution width (RBC) [Ratio]13.6 %Bkxtmy90.5-14.5The [facility] HospitalroHealth SystemComment on above:Performed By: #### CBC ####[facility] PATHOLOGY JQKMRGGDCN239[address] [place] [address], [address]Wkofrsohuv (Bld) [Volume fraction]18.3 %Critically low41.0-53.0The [facility] HospitalroHealth SystemComment on above:Performed By: #### CBC ####[facility] PATHOLOGY YSPVADGUOR049[address] [place] [address], [address]79[address]Gobesxsxkt (Bld) [Mass/Vol]6.1 g/dLCritically low13.9-16.3The [facility] HospitalroHealth SystemComment on above:Performed By: #### CBC ####[facility] PATHOLOGY FOCKYYDCYB8814[address] [place] [address], [address]-76[address]QPZ (RBC) [Entitic mass]33.0 oyUykcot48.0-34.0The [facility] HospitalroHealth SystemComment on above:Performed By: #### CBC ####[facility] PATHOLOGY RNWIKLMKFP6232 [place], [address]XONQ (RBC) [Mass/Vol]33.3 g/tXHexpkj35.0-35.9The [facility] Comment on above:Performed By: #### CBC ####[facility] PATHOLOGY RNHCVUFDJK[address] [place] [address], [address]WGD (RBC) [Entitic vol]99 fLNormal 80-100The [facility] HospitalroHealth SystemComment on above:Performed By: #### CBC ####[facility] PATHOLOGY OINSYOMZQB[address] [place] [address], [address]Ihyavunu mean volume (Bld) [Entitic vol]6.9 fLLow7.5-11.2The [facility] ([facility]oldtHealth SystemComment on above:Performed By: #### CBC ####[facility] PATHOLOGY ALEGEHJDMD[address] [place] [address], [address]Yxhlcpwfy (Bld) [#/Vol]170 10*3/rNOuhymt739-652Fsi [facility] ([facility]oldtHealth SystemComment on above:Performed By: #### CBC ####[facility] PATHOLOGY TFGXDXIPLP[address] [place] [address], [address]RSS (Bld) [#/Vol]1.85 10*6/uLLow4.50-5.90The [facility] ([facility]tHealth SystemComment on above:Performed By: #### CBC ####[facility] PATHOLOGY CJZCVSKOMW48750[address] [place] [address], [address]LVF (Bld) [#/Vol]5.6 10*3/uLNormal4.5-11.5The [facility] ([facility]tHealth SystemComment on above: Performed By: #### CBC ####[facility] PATHOLOGY VGQGUXDDVP[address] [place] [address], [address]XMIZIFFC KINASEon 38-32-1672BA [Catalytic activity/Vol]318 U/ZOlcq29-966Ygy [facility] SystemComment on above:Performed By: #### CK, MG, PHOS, TRIG, CH8 ####[facility] PATHOLOGY BCTCYZMHLX[address] [place] [address], [address]ECLTDQEIVMHNyx 78-03-3269Vkrplanv [Moles/Vol]98 mmol/ZYqizez10-186Gcy [facility] ([facility]oldtHealth SystemComment on above:Performed By: #### CR GLU, CR BGA, CR COOX, CR ICA, LACT, CR LYTES ####[facility] PATHOLOGY SELMQLOHLC[address] [place] [address], [address]Ahmtrjwwm [Moles/Vol]4.2 mmol/LNormal 3.5-5.0The [facility] ([facility] SystemComment on above:Performed By: #### CR GLU, CR BGA, CR COOX, CR ICA, LACT, CR LYTES ####[facility] PATHOLOGY JOMNHFJYLT0548YzxexNeobjz[address] [place] [address], [address]Bqmnhc [Moles/Vol]131 mmol/RUyo137-338Toq [facility] SystemComment on above:Performed By: #### CR GLU, CR BGA, CR COOX, CR ICA, LACT, CR LYTES ####[facility] PATHOLOGY PUCFAOLHUL4942UsashAeestp[address] [place] [address], [address]Kejndgfl [Moles/Vol]96 mmol/ZDym30-320Nta [facility] SystemComment on above:Performed By: #### CR COOX, CR LYTES, LACT, CR GLU, CR BGA, CR ICA ####[facility] PATHOLOGY NYPNHGQWMQ4040XzryeFbhgaj[address] [place] [address], [address]34[address]Xvczrpaeo [Moles/Vol]4.2 mmol/LNormal3.5-5.0The [facility] ([facility] SystemComment on above:Performed By: #### CR COOX, CR LYTES, LACT, CR GLU, CR BGA, CR ICA ####[facility] PATHOLOGY NHYOFAOBII1296SnxhwIrmosy[address] [place] [address], [address]Uwtvee [Moles/Vol]132 mmol/ZNxe730-983Aal [facility] SystemComment on above:Performed By: #### CR COOX, CR LYTES, LACT, CR GLU, CR BGA, CR ICA ####[facility] PATHOLOGY RAEVYXCHEW3900MxnxfQovuvq[address] [place] [address], [address]58[address]TBDku 54-66-1856FY ORDER ITEMProduct status info to followManhattan Eye, Ear and Throat Hospital SystemComment on above:Performed By: #### FFO ####[facility] PATHOLOGY YKOIYRASBB5[address] [place] [address], GLUCOSE, WHOLE BLOODon 01-59-7498CU VNK229 mg/bUKtrj36-011Tdg [facility] System Comment on above:Performed By: #### CR GLU, CR BGA, CR COOX, CR ICA, LACT, CR LYTES ####[facility] PATHOLOGY UGJFTZZSWZ6945SgmnrZbkdhj[address] [place] [address], CR CJG174 mg/rMDahw37-353Phs [facility] SystemComment on above:Performed By: #### CR COOX, CR LYTES, LACT, CR GLU, CR BGA, CR ICA ####[facility] PATHOLOGY DSYPTYLUSS5994CdpibQbkpcd[address] [place] [address], [address]XTVARG ACIDon 05-20-2024 CR LACT1.1 mmol/LNormal0.5-1.6The [facility] SystemComment on above:Performed By: #### CR GLU, CR BGA, CR COOX, CR ICA, LACT, CR LYTES ####[facility] PATHOLOGY BYUWGVXYOX6418BrotvGblptw[address] [place] [address], [address]MK LACT0.9 mmol/LNormal 0.5-1.6The [facility] SystemComment on above:Performed By: #### CR COOX, CR LYTES, LACT, CR GLU, CR BGA, CR ICA ####[facility] PATHOLOGY QNJSAXGXGD1018ZxylaEfboxw[address] [place] [address], [address]TZ LACT0.8 mmol/LNormal0.5-1.6The [facility] SystemComment on above:Performed By: #### LACT, CR BGA ####[facility] PATHOLOGY GZCJYSEPFS[address] [place] [address], [address]64[address]LLWJGUDFFim 05-20-2024 Magnesium [Mass/Vol]2.0 mg/dLNormal1.9-2.7The [facility] SystemComment on above:Performed By: #### CK, MG, PHOS, TRIG, CH8 ####[facility] PATHOLOGY IJHJNNLNAU[address] [place] [address], [address]JE Noteon 05-20-2024 [employer] Supervisor Authentication Interface Message TextNormalThe [facility] OR Nursingon 94-72-5705Epzqulizjetmi Authentication Interface Message TextReport called to 5w RN 1424[facility] CenterPARTIAL THROMBOPLASTIN TIMEon 21-61-3398aLWB Coag (Bld) [Time]28 tPcpxqk20-90Vak [facility] SystemComment on above:Performed By: #### APTT, PT ####S PATHOLOGY XMFXTZHPYY9[address] [place] [address], [address]01[address]HCAMHJAPQSxr 94-13-4937Ovgtoubsb [Mass/Vol]2.2 mg/dLLow2.5-5.0The [facility] SystemComment on above:Performed By: #### CK, MG, PHOS, TRIG, CH8 ####S PATHOLOGY WLVHBURWWX[address] [place] [address], [address]BQKFAK STATUSon 85-53-4095YITVH PRODUCT [id number] [facility] SystemComment on above:Performed By: #### FFU ####[facility] PATHOLOGY EZPCPACJAV48340[address] [place] [address], [address]HVNAQ PRODUCT CODE [id number] Eye, Ear and Throat Hospital SystemComment on above:Performed By: #### FFU ####[facility] PATHOLOGY FYNCCJPEPK[address] [place] [address], [address]BLKBN PRODUCT [id number] [facility] SystemComment on above:Performed By: #### FFU ####S PATHOLOGY MFAIURLLYV[address] [place] [address], [address]MQZCR PRODUCT DESCRIPTIONFFPNormalProMedica Toledo Hospital SystemComment on above:Performed By: #### FFU ####S PATHOLOGY GWZCANMWYY[address] [place] [address], [address]WAVNV PRODUCT STATUSReturned to Bld BnkNormalProMedica Toledo Hospital SystemComment on above:Performed By: #### FFU ####S PATHOLOGY PPBNICLCPQ[address] [place] [address], [address]40[address]QNXNZ PRODUCT STATUS Released to availNoShelby Memorial Hospital SystemComment on above:Performed By: #### FFU ####[facility] PATHOLOGY UGWHAABAOZ[address] [place] [address], BLOOD PRODUCT UNIT [id number] [facility] SystemComment on above:Performed By: #### FFU ####[facility] PATHOLOGY ZNGZQSWAOU[address] [place] [address], [address]BLHMO PRODUCT UNIT [id number] [facility] SystemComment on above:Performed By: #### FFU ####[facility] PATHOLOGY LELOEOGSRY[address] [place] [address], [address]UJAMH PRODUCT UNIT INFO [id number] [facility] SystemComment on above:Performed By: #### FFU ####[facility] PATHOLOGY QGYKPZBNEB[address] [place] [address], BLOOD PRODUCT UNIT [id number] [facility] SystemComment on above:Performed By: #### FFU ####[facility] PATHOLOGY AEBFRETSKN[address] [place] [address], [address]YHUQK PRODUCT UNIT [id number] Memorial Hospital SystemComment on above:Result Comment: AB PosPerformed By: #### FFU ####[facility] PATHOLOGY GLGWRIHTWO[address] [place] [address], [address]ELPIN PRODUCT UNIT [id number] Memorial Hospital SystemComment on above:Result Comment: A Pos Performed By: #### FFU ####[facility] PATHOLOGY VLXTDLILZX87280[address] [place] [address], [address]-9[address]IQZNGTNOSIS TIME AND INRon 11-73-7681GIN Coag (PPP) [Relative time]0.95 {INR}Normal0.90-1.10The [facility] SystemComment on above:Performed By: #### APTT, PT ####[facility] PATHOLOGY LHVZVDZGNU[address] [place] [address], [address]US Coag (PPP) [Time]10.6 sNormal9.7-12.9The [facility] SystemComment on above:Performed By: #### APTT, PT ####[facility] PATHOLOGY JTWCJIBTYG[address] [place] [address], [address]57[address]Wguqdfgkyonb 84-45-8049Vbcpawwdtutla Authentication Interface Message TextInvalid Interpretation CodeThe [facility] SystemProgress Noteson 05-20-2024 [employer] Authentication Interface Message TextNoShelby Memorial Hospital System [employer] Supervisor Authentication Interface Message TextNoShelby Memorial Hospital System RED BLOOD CELL COMPONENTon 02-10-1409NL ORDER ITEMProduct status info to follow NormalProMedica Toledo Hospital SystemComment on above:Performed By: #### RBO ####[facility] PATHOLOGY VHGHHOJIUE[address] [place] [address], [address]75[address]TD ORDER ITEM Product status info to followNoShelby Memorial Hospital SystemComment on above: Performed By: #### RBO ####[facility] PATHOLOGY QKRHFFHBUD[address] [place] [address], [address]SOI BLOOD CELL UNIT STATUSon 11-56-0102UNLBX PRODUCT [id number] [facility] SystemComment on above:Performed By: #### RBU ####[facility] PATHOLOGY YAIZEMBZPC[address] [place] [address], [address]EBOSR PRODUCT [id number] [facility] SystemComment on above:Performed By: #### RBU ####[facility] PATHOLOGY WEBAYYFNZD748[address] [place] [address], [address]ORFFQ PRODUCT DESCRIPTIONRed Blood CellsNoShelby Memorial Hospital SystemComment on above:Performed By: #### RBU ####[facility] PATHOLOGY ATBTBNQJRP7225[address] [place] [address], [address]UCWPK PRODUCT STATUS TransfusedNormOhioHealth Grove City Methodist Hospital SystemComment on above:Performed By: #### RBU ####[facility] PATHOLOGY WURJCYCNRA[address] [place] [address], [address]UYNGY PRODUCT STATUSReturned to Bld BnkNormalProMedica Toledo Hospital SystemComment on above: Performed By: #### RBU ####[facility] PATHOLOGY JLRUFWDEZZ49110[address] [place] [address], [address]UKAYD PRODUCT UNIT [id number] [facility] SystemComment on above:Performed By: #### RBU ####S PATHOLOGY KAQIGRSJEG80[address] [place], [address]WCQYT PRODUCT UNIT INFO [id number] [facility] SystemComment on above:Performed By: #### RBU ####S PATHOLOGY MQAGXDIJOV792406 [place] [address], BLOOD PRODUCT UNIT [id number] [facility] SystemComment on above:Performed By: #### RBU ####[facility] PATHOLOGY YPNGJXEHVB933[address] [place] [address], [address]LJQDI PRODUCT UNIT [id number] [facility] SystemComment on above:Performed By: #### RBU ####[facility] PATHOLOGY AIARQPQMFS017[address] [place] [address], [address]HGSVW PRODUCT UNIT TYPE 6200[facility] SystemComment on above:Result Comment: A PosPerformed By: #### RBU ####[facility] PATHOLOGY PFJMQGEOGC[address] [place] [address], [address]YJKVWFTKTD INTERPRETATIONCompatible (E)NormalProMedica Toledo Hospital System Comment on above:Performed By: #### RBU ####[facility] PATHOLOGY CHRIIPXAVD[address] [place] [address], [address]RHMZO PRODUCT [id number] [facility] SystemComment on above:Performed By: #### RBU ####[facility] PATHOLOGY MFDECGLWZJ933[address] [place] [address], [address]32[address]BBGZG PRODUCT DESCRIPTIONRed Blood CellsNoShelby Memorial Hospital SystemComment on above:Performed By: #### RBU ####[facility] PATHOLOGY LUMBCOIMQV6512[address] [place] [address], [address]KPQGS PRODUCT STATUSTransfusedNormalThe [facility] SystemComment on above:Performed By: #### RBU ####[facility] PATHOLOGY DXXAHUTVDI[address] [place] [address], [address]TBDYJ PRODUCT UNIT [id number] [facility] SystemComment on above:Performed By: #### RBU ####[facility] PATHOLOGY OGFDATYFYA[address] [place] [address], 9[address]78[address]XCRTY PRODUCT UNIT TYPE 6200NoShelby Memorial Hospital SystemComment on above:Result Comment: A PosPerformed By: #### RBU ####[facility] PATH[facility] VJCYHNZJKI[address] [place] [address], [address]BJIVEVRHEO INTERPRETATIONCompatible (E)NormalThe [facility] System Comment on above:Performed By: #### RBU ####S PATHOLOGY GXSOBISPRD[address] [place] [address], [address]JHEWDRNULJL CULTURE, MISCon 05-20-2024 MICNormOhioHealth Grove City Methodist Hospital SystemComment on above:Order Comment: THIS IS A PRELIMINARY REPORT. Final results will follow. Results of the preliminary report may be modified as additional information becomes available.Performed By: #### C RESP ####[facility] Dxpragpml[address] [place], [place] [address] RESPIRATORY CULTURE, MISCNormalThe [facility] SystemComment on above:Order Comment: THIS IS A PRELIMINARY REPORT. Final results will follow. Results of the preliminary report may be modified as additional information becomes available. Performed By: #### C RESP ####[facility] Glsdiqxti[address] [place], [place] [address]Student Noteon 14-71-6066Ftrmtfddvbhkt Authentication Interface Message TextManhattan Eye, Ear and Throat Hospital SystemTRIGLYCERIDESon 40-21-4896Ybptbbgjgeha [Mass/Vol]84 mg/dLNormal<150The [facility] SystemComment on above:Result Comment: Normal: < 150 mg/dLBorderline High: 150-199 mg/dLHigh: 200-499 mg/dLVery High: > = 500 mg/dLPerformed By: #### CK, MG, PHOS, TRIG, CH8 ####[facility] PATH[facility] VHUFJEAWWY[address] [place] [address], [address]YBUC AND SCREENon 49-06-1530ZWN and Rh group Nom (Bld)Blood group A Rh(D) positive NormalThe [facility] SystemComment on above:Performed By: #### TS ####[facility] PATH[facility] XOCKYVPOFU65[address] [place] [address], [address]EBNC INT NegativeNormElyria Memorial Hospitale [facility] SystemComment on above:Performed By: #### TS ####[facility] PATH[facility] NCMYPPMYQZ6623 [place], [address]EB CHEST AP OR PA 1 VIEWon 47-88-1765NC CHEST AP OR PA 1 VIEWNormElyria Memorial Hospitale [facility] SystemXR CHEST AP OR PA 1 VIEWNormOhioHealth Grove City Methodist Hospital SystemXR Chest Single viewon 45-67-8501JCZTHHMRUIN: XR CHEST AP OR PA 1 VIEW [...] Chest tube assessment ORDERING PROVIDER: KATIE MILLS TECHNNINOSKA NOTE: COMPARISON: XR CHEST AP OR [...] pulmonary opacities are again present, likely atelectasis. [facility] Study observation (narrative)[facility]HealthXR Chest Single viewOrdered By: Nik Nguyen on 28-96-7660MmvqmHemtvx Work Phone: BASIC METABOLIC PANELon 19-21-3079Zfqfw gap [Moles/Vol]15 mmol/YImrzza81-47Xtt [facility] SystemComment on above:Performed By: #### CH8 ####S PATHOLOGY WSSYEWTQIX8664 [place], [address]Zviikgi [Mass/Vol]8.7 mg/dLNormal8.6-10.3The [facility] SystemComment on above:Performed By: #### CH8 ####S PATHOLOGY ASXLABNWTP0433 [place], [address]Lpxgwoty [Moles/Vol]95 mmol/TOat72-504Uil [facility] ([facility]oldtHealth SystemComment on above:Performed By: #### CH8 ####S PATHOLOGY PDTGQNVXRT4049 [place], [address]XA7 [Moles/Vol]23 mmol/HRcxuva12-90Nvp [facility] SystemComment on above:Performed By: #### CH8 ####S PATHOLOGY JHSYRZHZNM4636 [place], Creatinine [Mass/Vol]1.23 mg/dLNormal0.70-1.30The [facility] SystemComment on above:Performed By: #### CH8 ####[facility] PATHOLOGY INOYIFQHNN8816 [place], [address]PJHHGJJCA GFR (CKD-EPI)59 mL/min/1.73sqmLow>=60The [facility] SystemComment on above:Result Comment: 2020 CKD EPI Equation using Creatinine without RaceComment: Estimated glomerular filtration rate (eGFR) is calculated without a race coefficient. Values should be interpreted in the co ntext of the patient's full clinical presentation.Reference:1. Risih C, Jorge M, Nic DC, et al.. A Unifying Approach for GFR Estimation: Recommendations of the NKF-ASN Task Force on Reassessing the Inclusion of Race in Diagnosing Kidney Disease. [place] Journal of Kidney Diseases 202;79(2):268-88.e1.2. N Engl J Med 1 Vol. 385 Issue 19 Pages 6012-9310Performed By: #### CH8 ####[facility] PATHOLOGY GCHEJHPWKK4483 [place], [address]Lunvdgt [Mass/Vol]178 mg/kLCjjb50-644Nma [facility] SystemComment on above:Performed By: #### CH8 ####[facility] PATHOLOGY XHUTIWMOGN5758 [place], [address]Vpbavawnr [Moles/Vol]5.6 mmol/LHigh3.5-5.0The [facility] HospitalroK[facility] System Comment on above:Result Comment: Hemolysis presentPerformed By: #### CH8 ####S PATHOLOGY NFIOXBAVGC2927 [place], [address]Guhnrt [Moles/Vol]127 mmol/HVga571-696Fli [facility] SystemComment on above:Performed By: #### CH8 ####S PATHOLOGY MBAJWDKJAN[address] [place] [address], [address]Jqxc nitrogen [Mass/Vol]40 mg/dLHigh7-25The [facility] SystemComment on above:Performed By: #### CH8 ####S PATHOLOGY GKLYTDHOUO4148 [place], [address]Okmdx gap [Moles/Vol]12 mmol/HTvwuxy46-00Fmw [facility] SystemComment on above:Performed By: #### CHI PRADO CH8 ####S PATHOLOGY PBKZVFHLNH7433 [place], [address]Lysqkpj [Mass/Vol]8.5 mg/dLLow8.6-10.3The [facility] SystemComment on above:Performed By: #### CHI PRADO CH8 ####S PATHOLOGY PMLIVNEDGR0787 [place], [address]Fyybvuch [Moles/Vol]98 mmol/PYovkoz78-449Yav [facility] HospitalroHealth SystemComment on above:Performed By: #### CHI PRADO CH8 ####[facility] PATHOLOGY [id number] [place], [address]SZ0 [Moles/Vol]27 mmol/RHhnyhv02-46Yfj [facility] SystemComment on above:Performed By: #### CHI PRADO CH8 ####S PATHOLOGY [id number] [place], [address]Xmtodkrlza [Mass/Vol]1.67 mg/dLHigh0.70-1.30The [facility] HospitalroHealth SystemComment on above:Performed By: #### CHI PRADO CH8 ####S PATHOLOGY [id number] [place], [address]RFERMBUHW GFR (CKD-EPI)41 mL/min/1.73sqmLow>=60The St[facility] HospitalroHealth SystemComment on above:Result Comment: 2020 CKD EPI [...] Inclusion of Race in Diagnosing Kidney Disease. [place] Journal of Kidney Diseases 2021;79(2):268-88.e1.2. N Engl J Med 1 Vol. 385 Issue 19 Pages 7673-7501Performed By: #### CHI PRADO CH8 ####[facility] PATHOLOGY [id number] [place], [address]Yxncyuk [Mass/Vol]117 mg/zPGzfn18-[address] [facility] HospitalroHealth SystemComment on above:Performed By: #### CHI PRADO CH8 ####[facility]fon[facility] PATHOLOGY ULSSCJGLAN6428 [place], [address]Jolzmcjdx [Moles/Vol]5.6 mmol/LHigh3.5-5.0The [facility] HospitalroHealth SystemComment on above:Performed By: #### CHI PRADO CH8 ####S PATHOLOGY WYUKEBXEHZ3230 [place], [address]Bratgk [Moles/Vol]131 mmol/FKgm547-751Zgr [facility] HospitalroHealth SystemComment on above:Performed By: #### CHI PRADO CH8 ####[facility] PATHOLOGY KGZQXWGBEJ0997 [place], [address]Eqki nitrogen [Mass/Vol]47 mg/dLHigh7-25The [facility] SystemComment on above:Performed By: #### CHI PRADO CH8 ####[facility] PATHOLOGY JRVDGRPDYR9294 [place], [address]OTZES GAS, ARTERIALon 78-04-7991LO ABE1.2 mmol/LNormal-2.0-3.0The [facility] HospitalroHealth SystemComment on above:Performed By: #### CR BGA ####[facility] PATHOLOGY ZKREOJBGVZ5371 [place], [address]MF BZF047.3 mm HgNormal 35.0-45.0The [facility] HospitalroHealth SystemComment on above:Performed By: #### CR BGA ####[facility] PATHOLOGY HGYPUADVYC5337 [place], [address]DN PHA7.337Twerxl3.350-7.450The [facility] HospitalroHealth SystemComment on above:Performed By: #### CR BGA ####[facility] PATHOLOGY EPIAWQWTAX[address] [place] [address], [address]BK PO294 mm YoGcyfnx78-621Xki [facility] HospitalroHealth SystemComment on above: Performed By: #### CR BGA ####[facility] PATHOLOGY BXUCZMPOPV[address] [place] [address], [address]FUS9 (CATEGORY)60%NormalThe [facility] System Comment on above:Performed By: #### CR BGA ####[facility] PATHOLOGY XULFKAJADD927[address] [place] [address], [address]TEX7 (Bld) [Moles/Vol]26 mmol/LNormal 21-28The [facility] HospitalroHealth SystemComment on above:Performed By: #### CR BGA ####[facility] PATHOLOGY IDOMFZQXDJ77230[address] [place] [address], [address]UXEVSzvt NormalThe St. [facility]S HospitalroHealth SystemComment on above:Result Comment: 450 x 24 +5 Performed By: #### CR BGA ####[facility] PATHOLOGY IVJSPFRLUA[address] [place] [address], [address]Osxpvz saturation in Blood97.3 %Clwrpp84.0-99.0The [facility] HospitalroHealth SystemComment on above:Performed By: #### CR BGA ####[facility] PATHOLOGY HUTXBRGPZA[address] [place] [address], [address]TQ ABE0.0 mmol/LNormal -2.0-3.0The [facility] HospitalroHealth SystemComment on above:Performed By: #### CR BGA ####[facility] PATHOLOGY QDTYBRKVPZ[address] [place] [address], [address]AF SNQ225.9 mm QmJjaa48.0-45.0The [facility] HospitalroHealth SystemComment on above:Performed By: #### CR BGA ####[facility] PATHOLOGY WQRDAFYRDM228[address] [place] [address], CR PHA7.105Gqd1.350-7.450The [facility] HospitalroHealth SystemComment on above:Performed By: #### CR BGA ####[facility] PATHOLOGY QQJCQQBSKG[address] [place] [address], [address]FL QL0564 mm CoGnqrfn08-179Bpx [facility] SystemComment on above: Performed By: #### CR BGA ####[facility] PATHOLOGY POIBBBMAZX170[address] [place] [address], [address]NMT9 (CATEGORY)50%NormalThe [facility] System Comment on above:Result Comment: 50LPerformed By: #### CR BGA ####[facility] PATHOLOGY TQAWOQGJFJ196[address] [place] [address], [address]PHN1 (Bld) [Moles/Vol] 27 mmol/PAawwdl42-73Nus [facility] SystemComment on above:Performed By: #### CR BGA ####[facility] PATHOLOGY OAGWLRHSYL[address] [place] [address], MODENasal CanulaNormalThe [facility] SystemComment on above:Performed By: #### CR BGA ####[facility] PATHOLOGY WQKMWHGVKC8719[address] [place] [address], [address]Ndbutp saturation in Blood96.4 %Nphhyr24.0-99.0The [facility] System Comment on above:Performed By: #### CR BGA ####[facility] PATHOLOGY MJHENZKWYD[address] [place] [address], [address]SKOZOXUI BLOOD COUNTon 05-19-2024 Erythrocyte distribution width (RBC) [Ratio]13.8 %Hjdglw82.5-14.5The [facility] SystemComment on above:Performed By: #### CBC ####[facility] PATHOLOGY RVKADIDVIS[address] [place] [address], [address]Udywgyoabl (Bld) [Volume fraction]23.1 %Low41.0-53.0The [facility] SystemComment on above:Performed By: #### CBC ####[facility] PATHOLOGY WJLGYBFFLP364[address] [place] [address], Hemoglobin (Bld) [Mass/Vol]7.8 g/dLLow13.9-16.3The [facility] SystemComment on above:Performed By: #### CBC ####[facility] PATHOLOGY IWPFLOMYLH[address] [place] [address], [address]YHJ (RBC) [Entitic mass]33.4 mbPfzuty67.0-34.0The [facility] SystemComment on above:Performed By: #### CBC ####[facility] PATHOLOGY LTJCXDHLXQ7519[address] [place] [address], [address]VFEX (RBC) [Mass/Vol] 33.6 g/yHRwcijf35.0-35.9The [facility] SystemComment on above:Performed By: #### CBC ####[facility] PATHOLOGY NYWTCVWZKN[address] [place] [address], [address]EAW (RBC) [Entitic vol]99 oPZgrnfc90-448Lcb [facility] SystemComment on above:Performed By: #### CBC ####[facility] PATHOLOGY NYHRUDINRV889[address] [place] [address], [address]Dtntnpcw mean volume (Bld) [Entitic vol]7.2 fLLow 7.5-11.2The [facility] HospitalroHealth SystemComment on above:Performed By: #### CBC ####[facility] PATHOLOGY BYNLGJBGKY[address] [place] [address], [address]Tgkwcqpzu (Bld) [#/Vol]161 10*3/jZUauroo259-902Tqm [facility] SystemComment on above: Performed By: #### CBC ####[facility] PATHOLOGY LXLYYDHHKP[address] [place] [address], [address]ORR (Bld) [#/Vol]2.33 10*6/uLLow4.50-5.90The [facility] HospitalroHealth SystemComment on above:Performed By: #### CBC ####[facility] PATHOLOGY BXQONVPTIM5737[address] [place] [address], [address]NDB (Bld) [#/Vol]8.4 10*3/uLNormal4.5-11.5The [facility] SystemComment on above:Performed By: #### CBC ####[facility] PATHOLOGY RMZYLHQDGU[address] [place] [address], Erythrocyte distribution width (RBC) [Ratio]13.6 %Sfhlxm45.5-14.5The [facility] SystemComment on above:Performed By: #### CBC ####[facility] PATHOLOGY PPHZFFFCZX6317[address] [place] [address], [address]Gofjvujkes (Bld) [Volume fraction]22.3 %Low41.0-53.0The [facility] HospitalroHealth SystemComment on above:Performed By: #### CBC ####[facility] PATHOLOGY OEJLBKVJRW[address] [place] [address], Hemoglobin (Bld) [Mass/Vol]7.4 g/dLLow13.9-16.3The [facility] HospitalroHealth SystemComment on above:Performed By: #### CBC ####[facility] PATHOLOGY TMWHVSYBLX[address] [place] [address], [address]ZFP (RBC) [Entitic mass]33.0 qzSetpyr31.0-34.0The [facility] HospitalroHealth SystemComment on above:Performed By: #### CBC ####[facility] PATHOLOGY TQXRAMYLCW[address] [place] [address], [address]IXHU (RBC) [Mass/Vol] 33.1 g/aJJcocje27.0-35.9The [facility] ([facility]oldtHealth SystemComment on above:Performed By: #### CBC ####[facility] PATHOLOGY XSPMEOGAEJ919[address] [place] [address], [address]QJT (RBC) [Entitic vol]100 uPIfsfvz00-973Mrx [facility] Hospitalro[facility] SystemComment on above:Performed By: #### CBC ####[facility] PATHOLOGY JOIDOFOEXD[address] [place] [address], [address]Wkqmfjwr mean volume (Bld) [Entitic vol]7.2 fLLow 7.5-11.2The [facility] HospitalroHealth SystemComment on above:Performed By: #### CBC ####[facility] PATHOLOGY QUIWFHEADG905[address] [place] [address], [address]Rnuwxaduh (Bld) [#/Vol]157 10*3/hQYtyduw268-665Hat [facility] HospitalroHealth SystemComment on above: Performed By: #### CBC ####[facility] PATHOLOGY UEINNNUHRT643[address] [place] [address], [address]AUO (Bld) [#/Vol]2.24 10*6/uLLow4.50-5.90The [facility] HospitalroHealth SystemComment on above:Performed By: #### CBC ####S PATHOLOGY SDIAVKTUIG5835 [place], [address]TKV (Bld) [#/Vol]5.7 10*3/uLNormal4.5-11.5The [facility] SystemComment on above:Performed By: #### CBC ####S PATHOLOGY PELOIBNKHW8639 [place], [place], CT CHEST W/O CONTRASTon 15-30-5001XO CHEST W/O CONTRASTNormalThe [facility] SystemCT Chest WO contrastOrdered By: Aramis Lamar on 13-08-0867LN MII832.1 (mGy.cm)[facility] Work Phone: ct SeriesTopogram,CHEST WOMetroHealth Work Phone: ctDI VOL0.03 (mGy),7.42 (mGy)[facility] Work Phone: [employer]os[employer]antom,IEC Body Dosimetry PhantomMetroHealth Work Phone: [facility] Work Phone: ct Chest WO contraston 82-69-2085MJUOHRMOWDC: CT CHEST W/O CONTRAST 05/19/2024 09:45 AM [...] the right lateral chest wall. MACRO: None JYOTIPeAramis betancourt MD - 05/19/2024 EXAMINATION: CT CHEST W/O [...] the right lateral chest wall. MACRO: None [facility] CenterRadiology Study observation (narrative)[facility] CenterCare Plan Noteon 65-50-8015Cocloqjalgwts Authentication Interface Message TextNormElyria Memorial Hospitale [facility] SystemConsultson 16-55-1744Uqeqbsyzonyut Authentication Interface Message TextNormElyria Memorial Hospitale [facility] SystemMAGNESIUMon 49-72-2263Zmjrbpybh [Mass/Vol]2.5 mg/dLNormal1.9-2.7The [facility] SystemComment on above:Performed By: #### CHI PRADO, AMMON ####[facility] PATHOLOGY IDAIKTBDUS5345 [place], [address]BNHB SCREENon 41-56-3667YASC DNA JASMINA+probe Ql (Unsp spec)CMR: No methicillin resistant Staphylococcus aureus isolated.NormalNo methicillin resistant Staphylococcus aureus isolated.The [facility] SystemComment on above: Performed By: #### CMR ####[facility] Wznfbyxxw84[address] [place], [place]PHOSPHORUSon 23-75-8839Dklqtwxet [Mass/Vol]3.2 mg/dLNormal2.5-5.0 The [facility] SystemComment on above:Performed By: #### MG, CHI, CH8 ####[facility] PATHOLOGY NQTSPODQFI8909 [place], [address]Fzqy- Procedure Noteon 52-51-5516Mwaacrzxmfltl Authentication Interface Message Text NormalThe [facility] SystemProcedureson 97-24-3515Lmgmlsfkfvryi Authentication Interface Message TextNormElyria Memorial Hospitale [facility] SystemTranscription Authentication Interface Message TextNormOhioHealth [facility] SystemProgress Noteson 05-19-2024 [employer] Supervisor Authentication Interface Message TextNoShel[facility] System [employer] Authentication Interface Message TextNoShelby Memorial Hospital System [employer] Authentication Interface Message TextNoShel[facility] System [employer]visor Authentication Interface Message TextNoShel[facility] System [employer]visor Authentication Interface Message TextNormOhioHealth [facility] System [employer]visor Authentication Interface Message [id number]: trauma team at the bedside to intubate pt. 1426: 14 etomidate given, 70 of Koko given 1429: #7.5 tube and 24 @ lips with positive color change 1433: Pressure 55/46, 100 phenyl mcg/mL given 1436: Levo started 1442: Waiting for XR confirmationNoShelby Memorial Hospital SystemTranscription Authentication Interface Message TextNormOhioHealth [facility] SystemTranscription Authentication Interface Message TextNorm[facility] SystemTranscription Authentication Interface Message TextNormOhio[facility] SystemTranscription Authentication Interface Message TextNoCarePartners Rehabilitation HospitalTheSedge.org SystemStudent Noteon 76-51-8815Rieqphniqvrul Authentication Interface Message TextNoShelby Memorial Hospital SystemTranscription Authentication Interface Message TextNoCritical access hospitalroHealth SystemXR CHEST AP OR PA 1 VIEWon 50-62-9711UK CHEST AP OR PA [address] [facility] HospitalroK[facility] SystemXR CHEST AP OR PA [address] [facility] System XR Chest Single viewon 13-59-5680BZQOSRJCWCY: XR CHEST AP OR PA 1 VIEW [...] right rib fractures are identified. MACRO: None Micah Taylor MD - 05/19/2024 EXAMINATION: XR CHEST AP [...] right rib fractures are identified. MACRO: None [facility] Study observation (narrative)[facility]HealthXR Chest Single viewOrdered By: Micah Lynne on 09-23-0240ZeicrHyfcpc Work Phone: aNTR FXA-LMW HEPARINon 95-76-9991QCTZ FXA-LMW HEPARIN ASSAY0.44 IU/mLNormalThe [facility] SystemComment on above:Order Comment: The recommended therapeutic range for treatment of thrombosis with Low Molecular Weight Heparin is 0.5 - 1.0 IU/mLThe recommended range for VTE prophylaxis with Low Molecular Weight Heparin is 0.2 - 0.4 IU/mL.Performed By: #### ANGELINA ####[facility] PATHOLOGY BGQJJBVWVG[address] [place] [address], [address]KDGPJ METABOLIC PANELon 98-31-2487Dvern gap [Moles/Vol]13 mmol/USyuddo41-03Xvs [facility] SystemComment on above:Performed By: #### CH8 ####[facility] PATHOLOGY PAKLQJLILN[address] [place] [address], [address]Pkokgjs [Mass/Vol]8.4 mg/dLLow8.6-10.3The [facility] SystemComment on above:Performed By: #### CH8 ####[facility] PATHOLOGY QTFQRENIBN[address] [place] [address], Chloride [Moles/Vol]98 mmol/VJwfuvh43-260Tcy [facility] SystemComment on above: Performed By: #### CH8 ####[facility] PATHOLOGY VGYKBAXGDR[address] [place] [address], [address]MT1 [Moles/Vol]23 mmol/DAwfsfj46-64Ama [facility] SystemComment on above:Performed By: #### CH8 ####[facility] PATHOLOGY QEOOLVKNPT048[address] [place] [address], [address]Tjeibycgbe [Mass/Vol]2.09 mg/dLHigh 0.70-1.30The [facility] SystemComment on above:Performed By: #### CH8 ####[facility] PATHOLOGY XZZNDFSHJP[address] [place] [address], [address]QETLCDTDJ GFR (CKD-EPI)31 mL/min/1.73sqmLow>=60The [facility] SystemComment on above:Result Comment: 2020 CKD EPI Equation using Creatinine without RaceComment: Estimated glomerular filtration rate (eGFR) is calculated without a race coefficient. Values should be interpreted in the context of the patient's full clinical presentation.Reference:1. Rishi C, Jorge M, Crelaura DC, et al.. A Unifying Approach for GFR Estimation: Recommendations of the NKF-ASN Task Force on Reassessing the Inclusion of Race in Diagnosing Kidney Disease. Nigerian Journal of Kidney Diseases 202;79(2):268-88.e1.2. N Engl J Med 1 Vol. 385 Issue 19 Pages 1682-5503Performed By: #### CH8 ####S PATHOLOGY EDTDIWNENK7639 [place], [address]Knqrgwy [Mass/Vol]106 mg/dLNormal 74-109The [facility] SystemComment on above:Performed By: #### CH8 ####[facility] PATHOLOGY FEVPXOUKNJ[address] [place] [address], [address]Fxkfxdzlu [Moles/Vol]6.6 mmol/LCritically high3.5-5.0The [facility] SystemComment on above:Result Comment: Hemolysis presentPerformed By: #### CH8 ####S PATHOLOGY SYCWSMNLDL3245 [place], [address]Gljswk [Moles/Vol]127 mmol/NVsf552-942Qpc [facility] SystemComment on above:Performed By: #### CH8 ####[facility] PATHOLOGY BMLXDIJUGR1001 [place], [address]Whhe nitrogen [Mass/Vol]50 mg/dLHigh7-25The [facility] SystemComment on above: Performed By: #### CH8 ####S PATHOLOGY UZCPXMXXJB7844 [place], [address]Sfxtm gap [Moles/Vol]13 mmol/RZuawjh02-53Lyt [facility] SystemComment on above:Performed By: #### CH8 ####S PATHOLOGY QVZOAIVQWP4628 [place], [address]Shfmplc [Mass/Vol]6.7 mg/dLLow8.6-10.3The [facility] SystemComment on above:Performed By: #### CH8 ####[facility] PATHOLOGY ZGGHWGUZDW5297 [place], Chloride [Moles/Vol]103 mmol/TUmvuaa57-255Ayk [facility] HospitalroHealth SystemComment on above:Performed By: #### CH8 ####[facility] PATHOLOGY NQHBRZEUPK1203 [place], [address]PR2 [Moles/Vol]19 mmol/NDfh74-43Web [facility] HospitalroHealth SystemComment on above:Performed By: #### CH8 ####[facility] PATHOLOGY PVVDNXNTQH6540 [place], [address]Photuvrohs [Mass/Vol]1.68 mg/dLHigh 0.70-1.30The [facility] HospitalroHealth SystemComment on above:Performed By: #### CH8 ####[facility] PATHOLOGY DZAKMJKVKH6771 [place], [address]NGGUFZCLE GFR (CKD-EPI)40 mL/min/1.73sqmLow>=60The [facility] SystemComment on above:Result Comment: 2020 CKD EPI [...] Inclusion of Race in Diagnosing Kidney Disease. Nigerian Journal of Kidney Diseases 2021;79(2):268-88.e1.2. N Engl J Med 2020 Vol. 385 Issue 19 Pages 5439-2377Performed By: #### CH8 ####[facility] PATHOLOGY IWAOVIGNFG8847 [place], [address]Qhmkgff [Mass/Vol]74 mg/xICkbube64-994 The [facility] SystemComment on above:Performed By: #### CH8 ####S PATHOLOGY FHVDENZLOR8495 [place], [address]Epssrwxxl [Moles/Vol] 5.4 mmol/LHigh3.5-5.0The [facility] SystemComment on above:Performed By: #### CH8 ####[facility] PATHOLOGY SVFJTNALSO7[address] [place] [address], Sodium [Moles/Vol]130 mmol/LVdz854-496Iiu [facility] SystemComment on above: Performed By: #### CH8 ####[facility] PATHOLOGY SWBLABHSEN[address] [place] [address], [address]Pbcw nitrogen [Mass/Vol]42 mg/dLHigh7-25The [facility] SystemComment on above:Performed By: #### CH8 ####[facility] PATHOLOGY WYEXMNYDQV[address] [place] [address], [address]WALOA GAS, ARTERIALon 85-20-7128SJ ABE0.4 mmol/LNormal-2.0-3.0The [facility] SystemComment on above: Performed By: #### CR BGA ####[facility] PATHOLOGY WKCXYDNIXI9[address] [place] [address], [address]RO GHE450.9 mm LzUpnq63.0-45.0The [facility] HospitalroHealth SystemComment on above:Performed By: #### CR BGA ####[facility] PATHOLOGY PZYWCMKYKA9[address] [place] [address], [address]JA PHA7.329Low 7.350-7.450The [facility] HospitalroHealth SystemComment on above:Performed By: #### CR BGA ####[facility] PATHOLOGY FFHNTCJJNE[address] [place] [address], [address]VV PO298 mm MpLwzodh69-947Ryt [facility] HospitalroHealth SystemComment on above:Performed By: #### CR BGA ####[facility] PATHOLOGY ACQOWBXPDF[address] [place] [address], [address]POJ4 (CATEGORY)40%NormalThe St. [facility] HospitalroHealth SystemComment on above: Performed By: #### CR BGA ####[facility] PATHOLOGY TMQYPRBTUF[address] [place] [address], [address]AGZ9 (Bld) [Moles/Vol]26 mmol/SIkgfmy95-91Fwk [facility] SystemComment on above:Performed By: #### CR BGA ####[facility] PATHOLOGY BJSGQNAJTO[address] [place] [address], [address]MVNNXELBUUyjydpGzk [facility] SystemComment on above:Performed By: #### CR BGA ####[facility] PATHOLOGY RZZBNYXFGJ4497 [place], [address]Mltkjl saturation in Blood97.7 %Baphtc33.0-99.0The [facility] SystemComment on above:Performed By: #### CR BGA ####[facility] PATHOLOGY GJTSAQIMHU0434 [place], [address]VBRTHCH, IONIZEDon 13-13-8324DK ICA1.05 mmol/LLow1.15-1.33The [facility] SystemComment on above:Result Comment: This test was developed, and its performance characteristics determined by the Department of Pathology of The [facility]. It has not been cleared or approved by the FDA. This test is used for clinical purposes only.Performed By: #### CR ICA ####[facility] PATHOLOGY ZAPTESLQNE1849 [place], [address]BGOHCHDY BLOOD COUNTon 21-34-7111Xrtbvxiafze distribution width (RBC) [Ratio]13.9 %Icqadv58.5-14.5The [facility] SystemComment on above:Performed By: #### CBC ####[facility] PATHOLOGY UJTKPIGMKI5851 [place], [address]Tjvzumyexy (Bld) [Volume fraction]28.9 %Low41.0-53.0The [facility] SystemComment on above: Performed By: #### CBC ####[facility] PATHOLOGY XBULDBNMQZ4902 [place], [address]Yndfqsrgod (Bld) [Mass/Vol]9.4 g/dLLow13.9-16.3The [facility] SystemComment on above:Performed By: #### CBC ####[facility] PATHOLOGY YUPSVAFMSH8211 [place], [address]SDP (RBC) [Entitic mass]32.7 ehJgqygf69.0-34.0The [facility] SystemComment on above:Performed By: #### CBC ####[facility] PATHOLOGY XEBNBEHALZ8389 [place], [address]NLFY (RBC) [Mass/Vol]32.5 g/lYUhoxdt32.0-35.9The [facility] System Comment on above:Performed By: #### CBC ####S PATHOLOGY VUGFVILCHS8044 [place], [address]BHN (RBC) [Entitic vol]101 fLHigh 80-100The [facility] HospitalroHealth SystemComment on above:Performed By: #### CBC ####[facility] PATHOLOGY YYNZDKLXDK[address] [place] [address], [address]Umuxecfs mean volume (Bld) [Entitic vol]6.9 fLLow7.5-11.2The [facility] ([facility] SystemComment on above:Performed By: #### CBC ####[facility] PATHOLOGY SNMRNINAZT[address] [place] [address], [address]Gkvxgjuwx (Bld) [#/Vol]100 10*3/mEYpe844-959Ucp [facility] ([facility] SystemComment on above:Performed By: #### CBC ####[facility] PATHOLOGY BKPOJLULAX[address] [place] [address], [address]PZK (Bld) [#/Vol]2.87 10*6/uLLow4.50-5.90The [facility] ([facility] SystemComment on above:Performed By: #### CBC ####[facility] PATHOLOGY OGRSXWVFAQ[address] [place] [address], [address]RUA (Bld) [#/Vol]3.8 10*3/uLLow4.5-11.5The [facility] SystemComment on above: Performed By: #### CBC ####[facility] PATHOLOGY EUFBSZPUJR[address] [place] [address], [address]Bavixqqtgv 10-29-4702Sszjlasbmsfkv Authentication Interface Message TextNormalThe [facility] SystemTranscription Authentication Interface Message TextNormalThe St. [facility] HospitalroHealth SystemGLUCOSE, FINGERSTICK-IN OFFICE on 56-91-8407Qiuasjg [Mass/Vol]102 mg/gHXvafxj97-998Rwe [facility] System Comment on above:Performed By: #### 64647 ####NURSING GLUCOSE KLRJRBT7725 [place], [place], [address]Nrsbjiu [Mass/Vol]72 mg/wSDsh26-339Txf [facility] ([facility] SystemComment on above:Performed By: #### [address]8713 ####NURSING GLUCOSE QRWZUBD3165 [place], [place], [address]Ofqxqkl [Mass/Vol]46 mg/dL Critically zyk54-087Gqo [facility] ([facility] SystemComment on above:Result Comment: Will Repeat TestPerformed By: #### 87229 ####NURSING GLUCOSE IMYRSYL8825 [place], [place], [address]Xbseyhr [Mass/Vol]120 mg/uTYphh88-021Wtv [facility] ([facility] SystemComment on above:Performed By: #### 28005 ####NURSING GLUCOSE WOZTLEO7604 [place], [place], [address]QBBRFBOYK, WHOLE BLOODon 05-18-2024 Potassium [Moles/Vol]5.0 mmol/LNormal3.5-5.0The [facility] ([facility] SystemComment on above:Performed By: #### CR K ####[facility] PATH[facility] EUVCEOAJLM9558 [place], [address]Lcubirbhi [Moles/Vol]5.7 mmol/LHigh3.5-5.0The [facility] ([facility] SystemComment on above:Performed By: #### CR K ####[facility] XPITFOIHLN[address] [place] [address], [address]Zndbecnb Noteson 48-75-2681Czhlfkljaofcr Authentication Interface Message TextNormAddison Gilbert HospitalHealth SystemTranscription Authentication Interface Message TextNormOhioHealth [facility] SystemTranscription Authentication Interface Message TextNormOhioHealth [facility] Hospital SystemStudent Noteon 18-08-6164Zhkjtbqubttzl Authentication Interface Message TextNormElyria Memorial Hospitale St. Luke'S HospitalroHealth SystemXR CHEST AP OR PA 1 VIEWon 80-55-9159LB CHEST AP OR PA [address] Luke[facility] HospitalroHealth SystemXR Chest Single viewon 20-04-7639KVXGRSLCRQH: XR CHEST AP OR PA 1 VIEW [...] Chest Single viewOrdered By: Vu Sullivan on 29-41-4769KglezBzqwrq Work Phone: abo RH TYPEon 09-40-1037YVT and Rh group Nom (Bld) Blood group A Rh(D) positiveNoShelby Memorial Hospital SystemComment on above: Performed By: #### GREGORIO ####[facility] ZKGYODTTCI3047 [place], [address]OYX/Rh History Checkon 97-22-2069XLP/Rh History CheckPatient discharged priorMiami Valley HospitalComment on above: Performed By: #### [id number] #### [facility] [address] [place], [place] [address]Jvxbbfendb Acute Painon 48-87-4676Dlycmsstxfvqr Authentication Interface Message TextNoCleveland Clinic Union Hospitale [facility] SystemTranscription Authentication Interface Message TextNoCleveland Clinic Union Hospitale [facility] SystemAnesthesia Procedure Noteson 50-41-5869Tevuicphxxjbs Authentication Interface Message TextInvalid Interpretation CodeThe [facility] SystemBASIC METABOLIC PANELon 30-40-0822Zrmrf gap [Moles/Vol]13 mmol/VFnjilv34-25Aui [facility] SystemComment on above: Performed By: #### PHOS, CH8, HEPATIC, MG ####[facility] OSRAMHPDHB6575 [place], [address]Ojnpmob [Mass/Vol]9.7 mg/dLNormal 8.6-10.3The [facility] SystemComment on above:Performed By: #### PHOS, CH8, HEPATIC, MG ####[facility] VRCGGHVOSW4274 [place], [address]Tbwtoahy [Moles/Vol]91 mmol/MEmw76-772Mbx [facility] SystemComment on above:Performed By: #### PHOS, CH8, HEPATIC, MG ####[facility] WGRDRFWTDC4519 [place], [address]FG0 [Moles/Vol]28 mmol/YZmeyfc30-07Hvc [facility] SystemComment on above:Performed By: #### PHOS, CH8, HEPATIC, MG ####[facility] OULKFKQPPC7430 [place], [address]Lkbblqppcj [Mass/Vol]1.22 mg/dLNormal0.70-1.30The [facility] SystemComment on above:Performed By: #### AMMON MIRELES, HEPATIC, MG ####[facility] YULUHSOYSM7148 [place], [address]KDFQVDVGK GFR (CKD-EPI)59 mL/min/1.73sqmLow>=60The [facility] SystemComment on above:Result Comment: 2020 CKD EPI [...] Inclusion of Race in Diagnosing Kidney Disease. Nigerian Journal of Kidney Diseases 2021;79(2):268-88.e1.2. N Engl J Med 1 Vol. 385 Issue 19 Pages 8804-6727Performed By: #### AMMON MIRELES, HEPATIC, MG ####[facility] QARPAQANLN9599 [place], [address]Zccxvrq [Mass/Vol]155 mg/bBXipu57-100Whl [facility] SystemComment on above:Performed By: #### AMMON MIRELES, HEPATIC, MG ####[facility] PBFHYUGCSR4543 [place], [address]Fgzglllap [Moles/Vol]5.3 mmol/LHigh3.5-5.0The [facility] System Comment on above:Performed By: #### CHI CH8, HEPATIC, MG ####[facility] WFOVKDNLJF5228 [place], [address]Fjghku [Moles/Vol]127 mmol/SAyi191-364Hja [facility] SystemComment on above:Performed By: #### CHI CH8, HEPATIC, MG ####[facility] TVTTRRUMYH6981 [place], [address]Muxk nitrogen [Mass/Vol]25 mg/dLNormal7-25The [facility] System Comment on above:Performed By: #### PHOAlfonzo CH8, HEPATIC, MG ####S PATHOLOGY KQWKCQNTMJ1562 [place], [address]Etink gap [Moles/Vol]13 mmol/MIhyqrz48-93Jzx [facility] SystemComment on above:Performed By: #### ETOH, hiv1 hiv2 agab scrn, CH8 ####S PATHOLOGY CFEKDKTEPR[address] [place] [address], [address]Stdljkv [Mass/Vol]9.6 mg/dLNormal8.6-10.3The [facility] SystemComment on above:Performed By: #### ETOH, hiv1 hiv2 agab scrn, CH8 ####[facility] PATHOLOGY EQRZRNKGWH[address] [place] [address], Chloride [Moles/Vol]91 mmol/EBxg87-024Jvh St. [facility]'S HospitalroHealth SystemComment on above: Performed By: #### ETOH, hiv1 hiv2 agab scrn, CH8 ####[facility] PATHOLOGY SAKERQZOKF90000[address] [place] [address], [address]MQ3 [Moles/Vol]28 mmol/LQijyba95-32Tix [facility] SystemComment on above:Performed By: #### ETOH, hiv1 hiv2 agab scrn, CH8 ####[facility] PATHOLOGY ACZHVCBXRH[address] [place] [address], [address]Dyysdofrai [Mass/Vol]0.87 mg/dLNormal0.70-1.30The [facility] SystemComment on above:Performed By: #### ETOH, hiv1 hiv2 agab scrn, CH8 ####[facility] PATHOLOGY NQNAOZADSV168[address] [place] [address], ESTIMATED GFR (CKD-EPI)86 mL/min/1.73sqmNormal>=60The [facility] HospitalroHealth SystemComment on above:Result Comment: 2020 CKD EPI [...] Inclusion of Race in Diagnosing Kidney Disease. Nigerian Journal of Kidney Diseases 2021;79(2):268-88.e1.2. N Engl J Med 1 Vol. 385 Issue 19 Pages 6261-9204Performed By: #### ETOH, hiv1 hiv2 agab scrn, CH8 ####[facility] UNSVKOIUPC7595 [place], Glucose [Mass/Vol]150 mg/gKVras09-565Gmu [facility] SystemComment on above: Performed By: #### ETOH, hiv1 hiv2 agab scrn, CH8 ####S PATHOLOGY FLIBVHBHZL6383 [place], [address]Xjsmpdkhv [Moles/Vol] 5.2 mmol/LHigh3.5-5.0The [facility] SystemComment on above:Result Comment: Hemolysis presentPerformed By: #### ETOH, hiv1 hiv2 agab scrn, CH8 ####S PATHOLOGY PVNHPSBMMX[address] [place] [address], [address]Hvaxng [Moles/Vol]127 mmol/PBmi430-471Yap [facility] SystemComment on above:Performed By: #### ETOH, hiv1 hiv2 agab scrn, CH8 ####[facility] JVKHKHFWAH0821 [place], [address]Qarn nitrogen [Mass/Vol]22 mg/dLNormal 7-25The [facility] SystemComment on above:Performed By: #### ETOH, hiv1 hiv2 agab scrn, CH8 ####[facility] FAMZYBOAFD0945 [place], [address]DNXGA GAS, ARTERIALon 35-43-0876XX JOSEPH-0.7 mmol/LNormal-2.0-3.0The [facility] SystemComment on above:Performed By: #### CR BGA ####[facility] WUHRZDLFKW7363 [place], [address]YC FDA809.3 mm HgHigh 35.0-45.0The [facility] SystemComment on above:Performed By: #### CR BGA ####[facility] ZEJJWAYFVW7003 [place], [address]JP PHA7.446Sck3.350-7.450The [facility] SystemComment on above:Performed By: #### CR BGA ####[facility] PATHOLOGY VHVVIFMWTR[address] [place] [address], [address]QG PO285 mm VnGtjkfc21-107Uop [facility] HospitalroHealth SystemComment on above: Performed By: #### CR BGA ####[facility] PATHOLOGY QDVFHEKYFQ429[address] [place] [address], [address]BKK4 (CATEGORY)40%NormalThe [facility]. [facility] HospitalroHealth System Comment on above:Performed By: #### CR BGA ####[facility] PATHOLOGY EZGNXAYHOV1239[address] [place] [address], [address]PZY2 (Bld) [Moles/Vol]25 mmol/LNormal 21-28The [facility] HospitalroHealth SystemComment on above:Performed By: #### CR BGA ####[facility] PATHOLOGY WKAMMVNKOQ49450[address] [place] [address], [address]JQMCFVDRU NormalThe [address]. [facility]'S HospitalroHealth SystemComment on above:Performed By: #### CR BGA ####[facility] PATHOLOGY QCMTADZFUT4539[address] [place] [address], [address]Xnmwvo saturation in Blood95.9 %Pccqkq85.0-99.0The [facility] HospitalroHealth SystemComment on above: Performed By: #### CR BGA ####[facility] PATHOLOGY EFAXEAAETK[address] [place] [address], [address]FI JOSEPH-2.4 mmol/LLow-2.0-3.0The [facility] System Comment on above:Performed By: #### CR BGA ####[facility] PATHOLOGY WHHBQYFKCA8[address] [place] [address], [address]JV GPT966.3 mm NqHbdn34.0-45.0The [facility] HospitalroHealth SystemComment on above:Performed By: #### CR BGA ####[facility] PATHOLOGY GZYAOVVZBN[address] [place] [address], [address]FB PHA7.244Low 7.350-7.450The [facility] HospitalroHealth SystemComment on above:Performed By: #### CR BGA ####[facility] PATHOLOGY OVJQTIKFRG020[address] [place] [address], [address]TR PO282 mm HoEujqmt97-844Tmv [facility] SystemComment on above:Performed By: #### CR BGA ####[facility] PATHOLOGY WHJUUCYTXZ994[address] [place] [address], [address]HVM4 (CATEGORY)40%NormalThe [facility] SystemComment on above: Performed By: #### CR BGA ####[facility] PATHOLOGY JBGEVGPWIH[address] [place] [address], [address]MCZ9 (Bld) [Moles/Vol]25 mmol/HGnzwza55-99Pyn [facility] SystemComment on above:Performed By: #### CR BGA ####[facility] PATHOLOGY AXWMPHKBLD50500[address] [place] [address], [address]VUBAQNHTXUfiyoqRry [facility] SystemComment on above:Performed By: #### CR BGA ####[facility] PATHOLOGY VOUBDOMGQK513[address] [place] [address], [address]Cfbxvr saturation in Blood94.8 %Low95.0-99.0The [facility] SystemComment on above:Performed By: #### CR BGA ####[facility] PATHOLOGY TFXDQYWGYX754[address] [place] [address], [address]PG ABE0.1 mmol/LNormal-2.0-3.0The [facility] HospitalroHealth SystemComment on above: Performed By: #### CR BGA ####[facility] PATHOLOGY IZAEIEROXC8414[address] [place] [address], [address]CZ KUX294.5 mm AkSpcy91.0-45.0The [facility] SystemComment on above:Performed By: #### CR BGA ####[facility] PATHOLOGY JSHAREJMMR259[address] [place] [address], [address]DR PHA7.248Low 7.350-7.450The [facility] SystemComment on above:Performed By: #### CR BGA ####[facility] PATHOLOGY XWDJNIZFAF247[address] [place] [address], [address]XN XD0983 mm NsBmyd33-708Xve [facility] SystemComment on above:Performed By: #### CR BGA ####S PATHOLOGY KCUJSCIBRL3084 [place], [address]CNA1 (CATEGORY)>5 LPMNormalThe [facility] ([facility]ul[facility]oldtHealth SystemComment on above: Performed By: #### CR BGA ####[facility] PATHOLOGY FIUHPSBXEW9727 [place], [address]LGU1 (Bld) [Moles/Vol]28 mmol/BEqiken25-89Qal [facility] ([facility]oldtHealth SystemComment on above:Performed By: #### CR BGA ####[facility] PATHOLOGY FQEFIYIYXT89380[address] [place] [address], [address]GROBKqtcl CanulaNormal The [facility] SystemComment on above:Result Comment: 6LPerformed By: #### CR BGA ####[facility] PATHOLOGY GNJUYRUINA9[address] [place] [address], Oxygen saturation in Blood97.5 %Xekusc14.0-99.0The [facility] SystemComment on above:Performed By: #### CR BGA ####[facility] PATHOLOGY LCCCPATJBK[address] [place] [address], [address]KJOEXCN, IONIZEDon 87-28-7985OQ ICA1.11 mmol/LLow 1.15-1.33The [facility] SystemComment on above:Result Comment: This test was developed, and its performance characteristics determined by the Department of Pathology of [facility]. It has not been cleared or approved by the FDA. This test is used for clinical purposes only.Performed By: #### CR ICA, LACT ####[facility] PATHOLOG[facility] FSGLMTKOHM337[address] [place] [address], CR ICA1.15 mmol/LNormal1.15-1.33The [facility] SystemComment on above:Result Comment: This test was developed, and its performance characteristics determined by the Department of Pathology of [facility]. It has not been cleared or approved by the FDA. This test is used for clinical purposes only. Performed By: #### CR ICA ####[facility] PATHOLOG[facility] EVIQCBUUZN[address] [place] [address], [address]CUSTMCVU BLOOD COUNTon 80-21-8135Skdmpntunlp distribution width (RBC) [Ratio]13.7 %Yrregm25.5-14.5The [facility] System Comment on above:Performed By: #### CBC ####[facility] PATHOLOGY LMYMJQOZYJ648[address] [place] [address], [address]Jpdqrdqjve (Bld) [Volume fraction]33.6 %Low41.0-53.0The [facility] HospitalroHealth SystemComment on above:Performed By: #### CBC ####[facility] PATHOLOG[facility] QZWNIRJHXX755[address] [place] [address], Hemoglobin (Bld) [Mass/Vol]11.2 g/dLLow13.9-16.3The [facility] ([facility]oldtHealth SystemComment on above:Performed By: #### CBC ####[facility] PATHOLOG[facility] EXCJSGQGTU[address] [place] [address], [address]ETV (RBC) [Entitic mass]33.3 umCvchzm00.0-34.0The [facility] SystemComment on above:Performed By: #### CBC ####[facility] PATHOLOG[facility] ISDPOJMTNP354[address] [place] [address], [address]ZXUI (RBC) [Mass/Vol] 33.3 g/oZSccinh53.0-35.9The [facility] ([facility]oldtHealth SystemComment on above:Performed By: #### CBC ####[facility] PATHOLOGY GGMQLTTTCV9824[address] [place] [address], [address]PGF (RBC) [Entitic vol]100 eYKjwpfl79-902Zfh [facility] ([facility]oldtHealth SystemComment on above:Performed By: #### CBC ####[facility] PATHOLOG[facility] UWTALSXMOI319[address] [place] [address], [address]Pyrpfato mean volume (Bld) [Entitic vol]6.7 fLLow 7.5-11.2The [facility] SystemComment on above:Performed By: #### CBC ####[facility] PATHOLOGY HKLWCNJMDL7819[address] [place] [address], [address]Urlxaqmny (Bld) [#/Vol]204 10*3/nCPmleht326-840Pnh [facility] SystemComment on above: Performed By: #### CBC ####[facility] PATHOLOGY RNKCEADRIT9[address] [place] [address], [address]OMG (Bld) [#/Vol]3.37 10*6/uLLow4.50-5.90The [facility] HospitalroHealth SystemComment on above:Performed By: #### CBC ####[facility] PATHOLOGY SMSBYXIZZI2714[address] [place] [address], [address]PXB (Bld) [#/Vol]9.5 10*3/uLNormal4.5-11.5The [facility] SystemComment on above:Performed By: #### CBC ####[facility] PATHOLOGY DKZLFUDUXN[address] [place] [address], Erythrocyte distribution width (RBC) [Ratio]13.5 %Nubslo46.5-14.5The [facility] HospitalroHealth SystemComment on above:Performed By: #### CBC ####[facility] PATHOLOGY YMAARLTRWL067[address] [place] [address], [address]Ywztfixjan (Bld) [Volume fraction]41.9 %Rupbtz76.0-53.0The [facility] HospitalroHealth SystemComment on above:Performed By: #### CBC ####[facility] PATHOLOGY LJIZLBCQFO8812[address] [place] [address], Hemoglobin (Bld) [Mass/Vol]14.1 g/mNWwnytd46.9-16.3The [facility] HospitalroHealth SystemComment on above:Performed By: #### CBC ####[facility] PATHOLOGY OYHFNMPAJA4501[address] [place] [address], [address]TUZ (RBC) [Entitic mass]33.2 vrThzkta35.0-34.0The [facility] HospitalroHealth SystemComment on above:Performed By: #### CBC ####[facility] PATHOLOGY PROWLNZVUY476[address] [place] [address], [address]APOE (RBC) [Mass/Vol] 33.6 g/kGErhipc00.0-35.9The [facility] HospitalroHealth SystemComment on above:Performed By: #### CBC ####[facility] PATHOLOG[facility] GFPKIHVPYE815[address] [place] [address], [address]NMY (RBC) [Entitic vol]99 kJOlanjd40-640Xra [facility] HospitalroHealth SystemComment on above:Performed By: #### CBC ####[facility] PATHOLOG[facility] YXKEKOIXOC6895 [place], [address]Inlybrxk mean volume (Bld) [Entitic vol]6.7 fLLow 7.5-11.2The [facility] HospitalroHealth SystemComment on above:Performed By: #### CBC ####[facility] PATHOLOG[facility] YLJFAYAQGE5478 [place], [address]Xlycblxjx (Bld) [#/Vol]250 10*3/mLPaghzq873-646Vow [facility] HospitalroHealth SystemComment on above: Performed By: #### CBC ####[facility] PATHOLOG[facility] ZUWGPRECDB1720 [place], [address]RXY (Bld) [#/Vol]4.24 10*6/uLLow4.50-5.90The [facility] SystemComment on above:Performed By: #### CBC ####[facility] PATHOLOGY EDTRBWELYN764[address] [place] [address], [address]OCJ (Bld) [#/Vol]13.4 10*3/uLHigh4.5-11.5The [facility] ([facility]oldtHealth SystemComment on above:Performed By: #### CBC ####[facility] PATHOLOG[facility] MGWQKJKTMU7363 [place], [address]ZO Abdomen/Pelvis w/ Contraston 01-84-8698AH Abdomen/Pelvis w/ ContrastExam Date/Time: 05/16/2024 22:39 EDT [...] amount in ml's: 130 Rectal Contrast Given? NoNormalFisher Darrell Medical CenterCT Chest w/ Contraston 51-64-5889XC Chest w/ ContrastExam Date/Time: 05/16/2024 22:39 EDT [...] Contrast: Isovue 300 Contrast amount in ml's: 130[facility] HospitalCT Head or Brain w/o Contraston 17-66-1426AL Head or Brain w/o ContrastExam Date/Time: 05/16/2024 [...] Toñito Myrick MD Transcribed by: [place] Technologist: [facility] CenterCT PELVIS BONY W/O CONTRASTon 11-87-8911CI PELVIS BONY W/O CONTRASTNormElyria Memorial HospitalReputation.com [facility] SystemCT Spine Cervical w/o Contraston 15-25-9741FL Spine Cervical w/o Contrast Exam Date/Time: 05/16/2024 [...] moderate degenerative changes are present, with multilevel hclk-dy-kxuorymv neural foraminal narrowing and approximately 3 to [...] Toñito Myrick MD Transcribed by: [place] Technologist: [facility] Medical CentermontyDiley Ridge Medical CenterCTA HEAD/NECK W/on 33-25-9766FKS HEAD/NECK W/NormalThe [facility] SystemCare Plan Noteon 27-20-4850Umlbzgrjlvwtv Authentication Interface Message TextNormElyria Memorial Hospitale St. Luke'S HospitalroHealth SystemConsultson 14-25-3621Bhvbevdzfktav Authentication Interface Message TextNormalThe [facility] SystemTranscription Authentication Interface Message TextNormalThe [facility] SystemTranscription Authentication Interface Message TextNormalThe [facility] SystemED Clinical Summaryon 49-54-4266YJ Clinical SummaryED Clinical Summary [address] [address] ED Clinical Summary Person Information Name: ANDREA MICHELLE/[facility] Age: 83 Years : 1940 Sex: Male Language: Qatari PCP: DONY MOORE DO Marital Status: Visit [...] 05/17/2024 00:14:42 05/17/2024 00:14:42 05/17/2024 00:14:42 ADDRESS: [address] [place] [id number] [facility] DOC NOTES: MEDICAL INFORMATION: Prescriptions Given: PATIENT EDUCATION INFORMATION: Instructions: Follow up: DIAGNOSIS: Closed head injury; Hyponatremia; Pneumothorax; Rib fracturesPomerene Hospital CenterED Noteson 13-63-0024Pftngqpohkaty Authentication Interface Message TextPT BIB MLF; tx from [facility] with right sided hemopneumo; pt has pig tail catheter in place on right side; pt fell down 6-8 stairs and hit head +LOCNormal The [facility] SystemED Patient Education Noteon 49-90-5143EE Patient Education NoteED Patient Education NoteNoMosaic Life Care at St. Joseph Medical CenterED Patient Summaryon 40-51-9295OJ Patient SummaryED Patient Summary [place] [id number] Patient Discharge Instructions Person Information Name: ANDREA MICHELLE Age: 83 Years Arrival Date: 05/16/2024 21:51:40 Discharge Diagnosis: Closed head injury; Hyponatremia; Pneumothorax; Rib fractures Primary Care Physician: DONY MOORE DO Provider Information Primary Provider: Ludmila Leach DO Advanced Speech Writer:None The exam and treatment you received in the Emergency Department were for an urgent problem and are not intended as complete care. It is important that you follow up with a doctor, nurse practitioner,or physician?s assistant director of security for ongoing care. If your symptoms become [...] opioids can be used to help relieve vzrmjywv-xk-atbgxd pain and are often prescribed following a [...] your community drug take- back program or Widemile mail-back program, or flush them down the toilet, following guidance from the Food and Drug Administration (www.fda.gov/Drugs/ResourcesForYou). ? Visit www.cdc.gov/drugoverdose to learn about the risks of opioids abuse and overdose. ? If you believe you may be struggling with addiction, tell your health healthcare analyst and ask for guidance or call [facility]?S National Helpline at 2-589-430-HELP. v Source: US Department of Health and Human Services/Center for Disease Control & Prevention [facility] (more content not included)...[facility] Provider Notes on 58-71-5492Hoqowifnjalct Authentication Interface Message TextNoEKK [employer] [facility] ([email or web address] SystemEMS Documentationon 58-89-0681XMI DocumentationReport Please click on link to see reportNoOur Lady of Mercy Hospital - AndersonComment on above:Result Comment: Missing Attachment - attachment exceeds size limitation Event_Strip_[email or web address].pdf Can be viewed in source systemETHANOL, SERUMon 13-41-8015Wmpjpci [Mass/Vol]mg/dLNormalNone DetectedThe St. Luke'S HospitalPoq Studio System Comment on above:Performed By: #### ETOH, hiv1 hiv2 agab scrn, CH8 ####[facility] MNUKFWLGQL3868 [place], [address]URPTVGQ, FINGERSTICK-IN OFFICEon 77-86-1079Fccaean [Mass/Vol]95 mg/oAErvdld00-342Bni [facility] ([email or web address] SystemComment on above:Performed By: #### [address] ####NURSING GLUCOSE QKOSVJU7016 [place], [place], [address]Pxohhec [Mass/Vol]162 mg/dLHigh 80-116The [facility] ([email or web address] SystemComment on above:Performed By: #### [address] ####NURSING GLUCOSE LBWNGJH2306 [place], [place], [address]S AND Ricardo 17-54-6806Kqivdepwnhahn Authentication Interface Message TextNormdentaZOOM St. Luke'S HospitalPoq Studio SystemHEPATIC FUNCTION PANELon 30-09-3721Fqymadw [Mass/Vol]4.5 g/dL Normal3.5-5.7The [facility] ([email or web address] SystemComment on above:Performed By: #### PHOS, CH8, HEPATIC, MG ####[facility] PATH[facility] HIOEZOAPYU7539 [place], [address]WFJ12 IU/HLrkjkk04-672Udn [facility] SystemComment on above: Performed By: #### AMMON MIRELES, HEPATIC, MG ####[facility] PATH[facility] ZQPUFKCCBC8849 [place], [address]YEX [Catalytic activity/Vol]26 U/L Normal7-52The [facility] SystemComment on above:Performed By: #### AMMON MIRELES, HEPATIC, MG ####[facility] PATH[facility] JWKCVFBLRI6333 [place], [address]SIB [Catalytic activity/Vol]34 U/OCuawjz56-05Ogx [facility] System Comment on above:Performed By: #### AMMON MIRELES, HEPATIC, MG ####[facility] PATH[facility] AMLXXVWOIV8124 [place], [address]Wqnwzljuo [Mass/Vol]0.4 mg/dLNormal0.3-1.0The [facility] SystemComment on above:Performed By: #### AMMON MIRELES, HEPATIC, MG ####[facility] PATHOLOGY GYNDLMQLIV3449 [place], [address]Nkflxvopf.direct [Mass/Vol]0.08 mg/dLNormal 0.03-0.18The [facility] SystemComment on above:Performed By: #### AMMON MIRELES, HEPATIC, MG ####[facility] PATHOLOGY ORFRJUSXQN1243 [place], [address]Qwsuokf [Mass/Vol]7.0 g/dLNormal6.0-8.3The [facility] SystemComment on above:Performed By: #### PHOAlfonzo CHIvis, HEPATIC, MG ####[facility] PATH[facility] QQUVSQICZE4026 [place], [address]GYRG SENSITIVITY TROPONIN Ion 63-18-6387FQ TROPONIN I14 ng/LNormal<=15The [facility] System Comment on above:Order Comment: Elevated troponin [...] provider judgement.Performed By: #### HSTRP ####[facility] PATH[facility] UCQPGZDJIO9991 [place], [address]LRW1 HIV2 AGAB SCRNon 98-34-5493RQH AG-AB HFGIBITsi-CcpwziujNukhiuQpm-JhpihsfiHfq [facility] HospitalPoq Studio System Comment on above:Order Comment: HIV Information: ???[place] Rev. code 3701.243(E):This information has been disclosed [...] hiv1 hiv2 agab scrn, CH8 ####[facility] NWJHHXAVIK9711 [place], [address]JZIEPU ACIDon 64-36-8898PF LACT1.2 mmol/LNormal0.5-1.6The [facility] SystemComment on above:Performed By: #### CR ICA, LACT ####S PATHOLOGY FBLEDLCTSQ6433 [place], [address]WQ LACT0.9 mmol/LNormal 0.5-1.6The [facility] SystemComment on above:Performed By: #### LACT ####S PATHOLOGY NX[address]EW[address] [place] [address], [address]GMDPFOLTEyd 28-61-6876Tisdldyjq [Mass/Vol]1.9 mg/dLNormal1.9-2.7The [facility] System Comment on above:Performed By: #### PHOS, CH8, HEPATIC, MG ####[facility] PATHOLOGY SXGSQHOXGC5088 [place], [address]Jd Panel Informationon 95-18-7038Yfbkcvr, Saheb, MD 05/17/2024 2:16 PM Peripheral Block [...] Slow fractionated injection: yes No block complications [facility] CenterMetMercy Health Perrysburg HospitalPARTIAL THROMBOPLASTIN TIMEon 54-60-2665qBWP Coag (Bld) [Time]27 fKvynfd81-17Cns [facility] SystemComment on above:Performed By: #### APTT, PT ####S PATHOLOGY QVVZJPUDNW7883 [place], [address]GZOATAVIFOpy 27-48-5652Fimpwdvdr [Mass/Vol]5.4 mg/dLHigh2.5-5.0The [facility] SystemComment on above:Performed By: #### PHOS, CH8, HEPATIC, MG ####[facility] LKCFHTDDHE2082 [place], PROTHROMBIN TIME AND INRon 19-28-3238HUB Coag (PPP) [Relative time]0.86 {INR}Low 0.90-1.10The [facility] SystemComment on above:Performed By: #### APTT, PT ####[facility] ZNEGTXTYZM5207 [place], [address]DT Coag (PPP) [Time]9.6 sLow9.7-12.9The [facility] SystemComment on above: Performed By: #### APTT, PT ####[facility] YLSEFFDILP[address] [place] [address], [address]Zjsoingq Noteson 26-38-0523Zberesdyrkxib Authentication Interface Message TextNoS[facility] SystemTranscription Authentication Interface Message TextNoShelby Memorial Hospital SystemTranscription Authentication Interface Message TextNoS[facility]by Memorial Hospital SystemTranscription Authentication Interface Message TextNormalThe [facility] SystemTranscription Authentication Interface Message TextNormalThe [facility] SystemTranscription Authentication Interface Message TextNormalThe [facility] SystemStudent Noteon 16-14-2502Efqrtrsamyedz Authentication Interface Message TextNormalThe [facility] SystemTYPE AND SCREENon 55-38-3984IOO and Rh group Nom (Bld)Blood group A Rh(D) positiveNormalThe St. Luke'S HospitalroHealth SystemComment on above:Performed By: #### TS ####S PATHOLOGY ZDXEQWOHWR7994 [place], [address]WSG and Rh group Nom (Bld)No Previous ResultsNormElyria Memorial Hospitale St. Luke'S HospitalroK[facility] SystemComment on above:Performed By: #### TS ####S PATHOLOGY JJNZHXIPSQ[address] [place] [address], [address]PXYE INTNegativeNormalThe St. Luke'S HospitalroKet[facility] SystemComment on above:Performed By: #### TS ####S PATHOLOGY CKUWTRWDFW[address] [place] [address], [address]TP GUIDANCE NEEDLE PLACEMENTon 50-62-3377XR GUIDANCE NEEDLE PLACEMENTNormalThe St. Luke'S HospitalroK[facility] SystemUS Guidance for placement of needle in Unspecified body regionon 62-01-5247FyhwaIpgbno: Technical services were performed by the department of Anesthesia. Please see the Procedure note for interpretation. Please refer to the patient's chart for the results of the procedure and ultrasound. MetroHealthNarrative & Impression EXAMINATION: US GUIDANCE NEEDLE PLACEMENT CLINICAL HISTORY: peripheral nerve block [facility]HealthRadiology Study observation (narrative)MetroHealthUS Guidance for placement of needle in Unspecified body regionOrdered By: Shaan Cobian on 02-09-9378AjxqpUphkvy Work Phone: XR CHEST AP OR PA 1 VIEWon 29-62-6180DX CHEST AP OR PA 1 VIEWNormalThe [facility] SystemXR CHEST AP OR PA 1 VIEWNormalThe [facility] SystemXR CHEST AP OR PA 1 VIEWNormalThe [facility] SystemXR Chest Single View on 54-67-6070VQ Chest Single ViewExam Date/Time: 05/16/2024 23:12 EDT Reason for Exam: post chest tube;Other (please specify) Report IMPRESSION: Interval placement of right-sided chest tube with improvement of the right pneumothorax. EXAMINATION: XR Chest Single View Clinical History: post chest tube Comparison: Earlier studies on 05/16/2024. RESULT: Limitations from single view and with portions of the lung apices excluded from the gzlmy-dn-fzqc. Interval placement of right-sided chest tube, projecting near the right hilar region. With improvement in the right pneumothorax, with possible residual pneumothorax laterally. Probable trace right pleural effusion. Multiple right-sided rib fractures, grossly unchanged. Other findings as discussed on the earlier radiographs, unchanged. Ordering Provider: Ludmila Leach FINAL REPORT Dictated: 05/17/2024 10:42 am Rahul Santana MD. Signed (Electronic Signature): 05/17/2024 10:42 am Signed by: Rahul Santana MD Transcribed by: [place] Technologist: ERNIE Technical Comments Radiation Dose: Ka,r in mGy = 0 DAP = 0[facility] Chest Single ViewExam Date/Time: 05/16/2024 22:03 [...] narrowing of the right acromiohumeral interval, with ofzr-vq-ljqy contact of the humeral head and acromion, consistent with chronic rotator cuff tearing with rotator cuff arthropathy. Ordering Provider: Kenney Arias FINAL REPORT Dictated: 05/17/2024 10:38 am Rahul Santana MD. Signed (Electronic Signature): 05/17/2024 10:38 am Signed by: Rahul Santana MD Transcribed by: [place] Technologist: CHRISTIN Technical Comments Radiation Dose: Ka,r in mGy = . DAP = .[facility] Chest Single viewon 05-17-2024 EXAMINATION: [...] Chest Single viewOrdered By: Clare Choe on 68-18-4960WkiglThepst Work Phone: XR FEMUR RIGHT MINIMUM 2 VIEWSon 87-38-0503VJ FEMUR RIGHT MINIMUM 2 VIEWSNormalThe [facility] SystemXR HIP RIGHT W/ PELVIS MIN 2-3 VIEWSon 31-00-7057VX HIP RIGHT W/ PELVIS MIN 2-3 VIEWSNormalThe [facility] SystemXR INLET-OUTLET + JUDETS 4 OR MORE VIEWSon 15-36-6365KU INLET-OUTLET + JUDETS 4 OR MORE VIEWSNormalThe [facility] SystemABSCon 72-54-8651KEKE Gel InterpNegativeNormalDiley Ridge Medical CenterComment on above:Performed By: #### [id number] #### [facility] [address] [place], [place] [address]THZDK BANKOrdered By: Iqra Ramos on 00-52-1743HUH/Rh InterpPositiveInvalid Interpretation CodeFAIRFAX COMM[facility] BB SubsectionABSC Gel Interp Negative (05/16/24 9:58 PM)NormalFAIRFAX COMMUNITY [facility]OSPITAL [facility] BB SubsectionBMPon 37-20-8863Cdpgy gap [Moles/Vol]15 mmol/LNormal6-16D[facility] Medical CenterComment on above:Performed By: #### [id number] #### [facility] [address] [place], [place] [address]Ovqrkou [Mass/Vol]9.5 mg/dLNormal8.9-11.1FCleveland Clinic Avon HospitalComment on above:Performed By: #### [id number] #### [facility] [address] [place], [place] [address]Tlbvxpnl [Moles/Vol]92 mmol/DNay716-174SvtksiDiley Ridge Medical CenterComment on above:Performed By: #### [id number] #### [facility] [address], [place] [address]BP8 [Moles/Vol]23 mmol/WGlymst60-92XcabebDiley Ridge Medical Center Comment on above:Performed By: #### [id number] #### [facility] [address] [place], [place] [address]Jjfokptxml [Mass/Vol]0.8 mg/dLNormal0.5-1.3FCleveland Clinic Avon HospitalComment on above:Performed By: #### [id number] #### [facility] [address] [place], [place] [address]Sbpbksg [Mass/Vol]143 mg/tAEcwzur03-959SgdbncDiley Ridge Medical CenterComment on above:Performed By: #### [id number] #### [facility] [address] [place], [place] [address]Tfzxkcfec [Moles/Vol]3.8 mmol/LNormal3.5-5.3FCleveland Clinic Avon HospitalComment on above:Performed By: #### [id number] #### [facility] [address] [place], [place] [address]Uevniu [Moles/Vol]126 mmol/OPbg429-277ZnbhnyDiley Ridge Medical CenterComment on above:Performed By: #### [id number] #### [facility] [address] [place], [place] [address]Punp nitrogen [Mass/Vol]20 mg/dLNormal5-21D[facility] Medical CenterComment on above:Performed By: #### [id number] #### [facility] [address] [place] [address]Pglg nitrogen/Creatinine [Mass ratio]25 No FmbmsGhhp16-48WhgycqDiley Ridge Medical CenterComment on above:Performed By: #### [id number] #### [facility] [address] [place], [place] [address]OIX w/ Auto Diffon 94-24-4827Niuascchg/100 WBC (Bld)0.4 %Normal 0.0-2.0D[facility] Medical CenterComment on above:Performed By: #### [id number] #### [facility] [address] [place], [place] [address]Duvsgyomw/Leukocytes Auto (Bld) [Pure # fraction]0.1 E9/LNormal 0.0-0.2FCleveland Clinic Avon HospitalComment on above:Performed By: #### [id number] #### [facility] [address] [place], [place] [address]Ljoqscoxiem (Bld) [#/Vol]0.5 E9/LNormal0.0-0.5FCleveland Clinic Avon HospitalComment on above:Performed By: #### [id number] #### [facility] [address] [place], [place] [address]Dwwjmclnsvo/100 WBC (Bld)3.0 %Normal0.0-8.0[facility] Medical CenterComment on above:Performed By: #### [id number] #### [facility] [address] [place], [place] [address]Kmtecmifdif distribution width (RBC) [Ratio]13.1 %Normal 10.9-14.2FCleveland Clinic Avon HospitalComment on above:Performed By: #### [id number] #### [facility] [address] [place], [place] [address]Epfffijlba (Bld) [Volume fraction]41.1 %Gmjiyw94.7-49.0[facility] Medical CenterComment on above:Performed By: #### [id number] #### [facility] [address] [place], [place] [address]Hsjawkqaet (Bld) [Mass/Vol]14.0 g/hMCtxiug58.5-17.5FCleveland Clinic Avon HospitalComment on above:Performed By: #### [id number] #### [facility] [address] [place] [address]Vofrrekkvvl (Bld) [#/Vol]1.5 E9/LNormal1.0-4.0[facility] Medical CenterComment on above:Performed By: #### [id number] #### [facility] [address] [place] [address]Fqqbcxaxdri/100 WBC (Bld)8.6 %Low14.0-50.0D[facility] Medical CenterComment on above:Performed By: #### [id number] #### [facility] [address] [place], [place] [address]WXX (RBC) [Entitic mass]33.7 yjNlplxm34.0-34.0[facility] Medical CenterComment on above:Performed By: #### [id number] #### [facility] [address] [place], [place] [address]MWDG (RBC) [Mass/Vol]34.2 g/aVVfkzia11.4-36.0[facility] Medical CenterComment on above:Performed By: #### [id number] #### [facility] [address] [place] [address]SDS (RBC) [Entitic vol]98.5 yRTavjai37.0-100.0[facility] Medical CenterComment on above:Performed By: #### [id number] #### [facility] [address] [place] [address]Biserauqr (Bld) [#/Vol]0.7 E9/LNormal0.2-1.0[facility] Medical CenterComment on above:Performed By: #### [id number] #### [facility] [address] [place] [address]Htbymoiwykn (Bld) [#/Vol]14.5 E9/LHigh2.0-7.5FCleveland Clinic Avon HospitalComment on above:Performed By: #### [id number] #### [facility] [address] [place] [address]Jysxqteyuiy/100 WBC (Bld)83.7 %High36.0-75.0[facility] Medical CenterComment on above:Performed By: #### [id number] #### [facility] [address] [place] [address]Jtfikjug578.0 E9/TRxppqx844.0-500.0[facility] Comment on above:Performed By: #### [id number] #### [facility] [address] [place] [address]Enbvokcd mean volume (Bld) [Entitic vol]6.3 fLLow6.4-10.8[facility] Medical CenterComment on above:Performed By: #### [id number] #### [facility] [address] [place] [address]HAF (Bld) [#/Vol]4.2 E12/LLow4.3-5.9[facility] Comment on above:Performed By: #### [id number] #### [facility] [address] [place], [place] [address]KYC corrected for nucl RBC Auto (Bld) [#/Vol]17.3 E9/LHigh 4.0-11.0[facility] Medical CenterComment on above:Result Comment: Peripheral smear review performed.Performed By: #### [id number] #### [facility] [address] [place], [place] [address]BTSYBERJFOthyoaw By: SYSTEM SYSTEM on 11-62-0076Pmymbxf [Mass/Vol]4.4 g/dLNormal3.3 - 5.0 gm/dLRemisol ChemAlbumin/Globulin [Mass ratio] 1.7 {ratio}Normal1.1 - 2.2Remisol ChemALP [Catalytic activity/Vol]62 [iU]/d Xpxhyt64 - 98 Int._Unit/LRemisol ChemALT No additional P-5'-P [Catalytic activity/Vol]23 [iU]/dNormal6 - 46 Int._Unit/LRemisol ChemAnion gap [Moles/Vol] 15 mmol/LNormal6 - 16 mEq/LRemisol ChemAST [Catalytic activity/Vol]34 [iU]/d Normal5 - 43 Int._Unit/LRemisol ChemBilirubin [Mass/Vol]0.3 mg/dLNormal0.0 - 1.1 mg/dLRemisol ChemBilirubin.direct [Mass/Vol]0.1 mg/dLNormal0.0 - 0.4 mg/dL Remisol ChemBilirubin.indirect [Mass or moles/Vol]0.2 mg/dLNormal0.1 - 0.9 mg/dL Remisol ChemCalcium [Mass/Vol]9.5 mg/dLNormal8.9 - 11.1 mg/dLRemisol Chem Chloride [Moles/Vol]92 mmol/VIgk675 - 111 mmol/LRemisol ChemCO2 [Moles/Vol]23 mmol/YKhbnjq01 - 31 mmol/LRemisol ChemCreatinine [Mass/Vol]0.8 mg/dLNormal0.5 - 1.3 mg/dLRemisol ZuwcsXJX55 mL/min/1.73 c9Dljdwp>=59mL/min/1.73 m2Sfaouxj Chem Ethanol Lvl18 mg/dLHigh<=11mg/dLRemisol ChemGlobulin (S) [Mass/Vol]2.6 g/dL Normal1.4 - 4.0 gm/dLRemisol ChemGlucose [Mass/Vol]143 mg/aNOokgey73 - 199 mg/dL Remisol ChemLactic Acid Lvl2.5 mmol/LHigh0.5 - 2.2 mmol/LRemisol ChemLipase [Catalytic activity/Vol]40 U/FQjumkt39 - 58 unit/LRemisol ChemPotassium [Moles/Vol]3.8 mmol/LNormal3.5 - 5.3 mmol/LRemisol ChemProtein [Mass/Vol]7.0 g/dLNormal6.0 - 7.8 gm/dLRemisol ChemSodium [Moles/Vol]126 mmol/FHvq411 - 145 mmol/LRemisol ChemTroponin HS5.40 pg/mLLow15.90 - 38.40 pg/mLRemisol ChemComment on above:Interpretive Data: The 95% CI (Confidence Interval) PPV (Positive Predictive Value) for myocardial infarction in females is 38 pg/mL, in males 51 pg/mL. The results should be used in conjunction withclinical conditions of myocardial infarction. (Access High Sensitivity Troponin I Instructions For Use, Kenyetta Ashland, April 2018)Urea nitrogen [Mass/Vol]20 mg/dLNormal5 - 21 mg/dLRemisol ChemUrea nitrogen/Creatinine [Mass ratio]25 mg/zsElin60 - 20Remisol ChemCOAGULATION Ordered By: Iqra Ramos on 78-78-4688zCBC Coag (PPP) [Time]29.9 dDwqkkq83.1 - 36.5 second(s)[facility] Auto CoagComment on above:Interpretive Data: Parameter 15 [...] the same coagulation reagent and instrumentation as [facility]. Currently there are no coagulation studies available worldwide for children to 14 days, andno normal ranges. Heparin therapeutic range (represented by Anti-Factor Xa activity of 0.2 - 0.4 U/mL) corresponds to PTT of 56.6 - 109.0 sec.INR Coag (PPP) [Relative time]0.83 {INR}Invalid Interpretation CodeFAIRFAX COMMUNITY HOSPITAL – [facility] Auto CoagComment on above:Interpretive Data: INR results are specifically intended to assess patients stabilized on long-term Anticoagulation therapy suggested INR s Less Intensive Anticoagulation 2.0 3.0 Conventional Range 3.0 4.5PT Coag (PPP) [Time]9.3 sLow9.4 - 12.5 second(s)[facility] Auto CoagComment on above:Interpretive Data: 15 days [...] the same coagulation reagent and instrumentation as [facility]. Currently there are no coagulation studies available worldwide for children to 14 days, andno normal ranges.ED Note-Physicianon 76-72-4062PZ Note-PhysicianED Note-Physician Basic Information Time Seen: Haylee Ludmila Hoa 05/16/2024 21:59 History of Present Illness HPI: [...] and Complexity of Problems Differential Diagnosis: [] [facility] Data External documents reviewed: N/A My EKG [...] [facility] care. Shared decision [...] XR Chest Single View Medications Administered Given EFPH0EBE [F], 0.5 mg, IV Push DAHF1KEA [F], 0.5 mg, IV Push Disposition Plan [...] Lymph Auto: 8.6 % Low (05/16/24 21:58:00) Dukes Auto: 4.3 % (05/16/24 21:58:00) Eos Auto: 3 % (05/16/24 21:58:00) Basophil Auto: 0.4 % (05/16/24 21:58:00) Neutro Absolute: 14.5 E9/L High (05/16/24 21:58:00) Lymph Absolute: 1.5 E9/L (05/16/24 21:58:00) Dukes Absolute: 0.7 E9/L (05/16/24 21:58:00) Eos Absolute: 0.5 E9/L (05/16/24 21:58:00) Basophil Absolute: 0.1 E9/L (05/16/24 21:58:00) PT: 9.3 second(s) Low (05/16/24 21:58:00) INR: 0.83 (05/16/24 21:58:00) PTT: 29.9 second(s) (05/16/24 21:58:00) Glucose Lvl: 143 mg/dL (05/16/24 21:58:00) BUN: 20 mg/dL (05/16/24 21:58:00) Creatinine: 0.8 mg/dL (05/16/24 21:58:00) eGFR: 88 mL/mi (more content not included)...[facility] Comment on above:Result Comment: Electronically Signed By: Ludmila Leach DO\.br\Date and Time Signed: 05/16/24 23:21 EDTEthanolon 24-52-2642Jojdcfd Lvl18 mg/dLHigh<=11D[facility] Medical CenterComment on above:Performed By: #### [id number] #### [facility] [address], [place] [address]RJIXIJDVBPCugevaq By: SYSTEM SYSTEM on 67-30-1853Fegxdgcyg/100 WBC (Bld)0.4 %Normal0.0 - 2.0 %Remisol HemeBasophils/Leukocytes Auto (Bld) [Pure # fraction]0.1 E9/LNormal0.0 - 0.2 E9/LRemisol HemeEosinophils (Bld) [#/Vol]0.5 E9/LNormal0.0 - 0.5 E9/LRemisol HemeEosinophils/100 WBC (Bld)3.0 %Normal0.0 - 8.0 %Remisol HemeErythrocyte distribution width (RBC) [Ratio]13.1 %Vqulcp36.9 - 14.2 %Remisol HemeHematocrit (Bld) [Volume fraction]41.1 %Mzcxgz97.7 - 49.0 % Remisol HemeHemoglobin (Bld) [Mass/Vol]14.0 g/aVSmbsld04.5 - 17.5 gm/dLRemisol HemeLymphocytes (Bld) [#/Vol]1.5 E9/LNormal1.0 - 4.0 E9/LRemisol Heme Lymphocytes/100 WBC (Bld)8.6 %Low14.0 - 50.0 %Remisol HemeMCH (RBC) [Entitic mass]33.7 pdNabpzr00.0 - 34.0 pgRemisol HemeMCHC (RBC) [Mass/Vol]34.2 g/dLNormal 31.4 - 36.0 gm/dLRemisol HemeMCV (RBC) [Entitic vol]98.5 vIKineis86.0 - 100.0 fL Remisol HemeMonocytes (Bld) [#/Vol]0.7 E9/LNormal0.2 - 1.0 E9/LRemisol Heme Monocytes/100 WBC (Bld)4.3 %Normal4.0 - 14.0 %Remisol HemeNeutrophils (Bld) [#/Vol]14.5 E9/LHigh2.0 - 7.5 E9/LRemisol HemeNeutrophils/100 WBC (Bld)83.7 % High36.0 - 75.0 %Remisol FxpjJduqylta996.0 E9/PTuqprr546.0 - 500.0 E9/LRemisol HemePlatelet mean volume (Bld) [Entitic vol]6.3 fLLow6.4 - 10.8 fLRemisol Heme RBC (Bld) [#/Vol]4.2 E12/LLow4.3 - 5.9 E12/LRemisol HemeWBC corrected for nucl RBC Auto (Bld) [#/Vol]17.3 E9/LHigh4.0 - 11.0 E9/LRemisol HemeComment on above: Result Comment: Peripheral smear review performed.Hep Func Panelon 05-16-2024 Albumin [Mass/Vol]4.4 g/dLNormal3.3-5.0[facility] Medical CenterComment on above:Performed By: #### [id number] #### [facility] [address], [place] [address]Ckxaetb/Globulin (S) [Mass conc ratio]1.5Larjun9.1-2.2FCleveland Clinic Avon HospitalComment on above:Performed By: #### [id number] #### [facility] [address], [place] [address]GFF [Catalytic activity/Vol]62 Int._Unit/YBaxzpx10-34FrfqrtDiley Ridge Medical CenterComment on above:Performed By: #### [id number] #### [facility] [address], [place] [address]TLP No additional P-5'-P [Catalytic activity/Vol]23 Int._Unit/L Normal6-46[facility] Medical CenterComment on above:Performed By: #### [id number] #### [facility] [address], [place] [address]QAS [Catalytic activity/Vol]34 Int._Unit/LNormal5-43[facility] Medical CenterComment on above:Performed By: #### [id number] #### [facility] [address], [place] [address]Vshzjcnsq [Mass/Vol]0.3 mg/dLNormal0.0-1.1FCleveland Clinic Avon HospitalComment on above:Performed By: #### [id number] #### [facility] [address], [place] [address]Cxredqfvm.direct [Mass/Vol]0.1 mg/dLNormal0.0-0.4FCleveland Clinic Avon HospitalComment on above:Performed By: #### [id number] #### [facility] [address], [place] [address]Raurbxjpy.indirect [Mass or moles/Vol]0.2 mg/dLNormal0.1-0.9 [facility] CenterComment on above:Performed By: #### [id number] #### [facility] [address], [place] [address]Mqvpphfe (S) [Mass/Vol]2.6 g/dLNormal1.4-4.0[facility] Medical CenterComment on above:Performed By: #### [id number] #### [facility] [address], [place] [address]Abmyxmf [Mass/Vol]7.0 g/dLNormal6.0-7.8[facility] Medical CenterComment on above:Performed By: #### [id number] #### [facility] [address] [place] [address]Vxxqcr Acidon 19-26-6733Sjojkc Acid Lvl2.5 mmol/LHigh0.5-2.2 [facility] CenterComment on above:Performed By: #### [id number] #### [facility] [address], [place] [address]Wzukqk Levelon 58-98-4576Cplwql [Catalytic activity/Vol]40 U/L Oevped30-87RanijmDiley Ridge Medical CenterComment on above:Performed By: #### [id number] #### [facility] [address], [place] [address]IA & PTTon 65-87-3657jBQA Coag (PPP) [Time]29.9 second(s)Normal 25.1-36.5FCleveland Clinic Avon HospitalComment on above:Result Comment: Parameter 15 days - [...] the same coagulation reagent and instrumentation as [facility]. Currently there are no coagulation studies available worldwide for children to 14 days, andno normal ranges. Heparin therapeutic range (represented by Anti-Factor Xa activity of 0.2 - 0.4 U/mL) corresponds to PTT of 56.6 - 109.0 sec.Performed By: #### [id number] #### [facility] [address], [place] [address]BDP Coag (PPP) [Relative time]0.83 {INR}Invalid Interpretation CodeDiley Ridge Medical CenterComment on above:Result Comment: INR results are specifically intended to assess patients stabilized on long-term Anticoagulation therapy suggested INR?s ?Less Intensive Anticoagulation? 2.0 ? 3.0 Conventional Range 3.0 ? 4.5Performed By: #### [id number] #### [facility] [address], [place] [address]QA Coag (PPP) [Time]9.3 second(s)Low9.4-12.5[facility] Medical CenterComment on above:Result Comment: 15 days - [...] ranges were obtained from a study by Jduson Posey et al. prepared from 1437 samples obtained at 7 different centers using the same coagulation reagent and instrumentation as [facility]. Currently there are no coagulation studies available worldwide for children to 14 days, andno normal ranges.Performed By: #### [id number] #### [facility] [address], [place] [address]Bpfhbdqhpe 45-78-6917Jqxumoue HS5.40 pg/mLLow15.90-38.40Fisher [facility] Medical CenterComment on above:Result Comment: The 95% CI (Confidence Interval) PPV (Positive Predictive Value) for myocardial infarction in females is 38 pg/mL, in males 51 pg/mL. The results should be used in conjunction with clinical conditions of myocardial infarction. (Access High Sensitivity Troponin I Instructions For Use, Kenyetta Aidan, April 2018)Performed By: #### [id number] #### [facility] [address] [place], [place] [address]eLKDau 08-62-1712cCCF37 mL/min/1.73 r9Lmpqwk>=59D[facility] Medical CenterComment on above:Order Comment: Order added by Discern Expert. Performed By: #### [id number] #### [facility] [address] [place], [place] [address]QU CHEST 2 Von 06-57-2077JL CHEST 2 VEXAM: XR CHEST 2 V [...] Electronically authenticated by: YINA PAINTER Date: 2022-10-22 16:47[facility] W MANUAL DIFFon 60-42-8703VMQGFLGV LYMPH #NormalThe [facility] Municipal HospitalComment on above:Performed By: #### CBCTILA #### [facility] [address] [place] [address] Dr. Aixa SullivanYPICAL LYMPH %NormalThe [facility] Municipal HospitalComment on above: Performed By: #### CBCTILA #### [facility] [address] [place] [address] Dr. Aixa Costa #Normal0.0-0.3The [facility] HospitalComment on above: Performed By: #### CBCMAN #### [facility] [address] [place] [address] Dr. Aixa Costa %Normal0-5The [facility] HospitalComment on above:Performed By: #### SMITA #### [facility] [address] [address] [address] Axia Muñiz #0.00 103/ulNormal0.00-0.10The [facility] HospitalComment on above:Performed By: #### SMITA #### [facility] [address] [address] [address] Aixa Muñzi %0.0 %Critically low0.2-2.0The [facility] HospitalComment on above:Performed By: #### SMITA #### [facility] [address] [address] [address] Aixa Castaneda #NormalThe [facility] HospitalComment on above:Performed By: #### SMITA #### [facility] [address] [place] [address] Dr. Aixa Castaneda %NormalThe [facility] HospitalComment on above:Performed By: #### SMITA #### [facility] [address] [place] [address] Dr. Aixa ArguelloCORRECTED WBCNormal4.0-11.0The [facility] HospitalComment on above: Performed By: #### SMITA #### [facility] [address] [place] [address] Dr. Aixa Carr #0.77 103/ulCritically high0.00-0.70The [facility] on above:Performed By: #### SMITA #### [facility] [address] [place] [address] Dr. Aixa Carr%12.0 %Critically high0.9-7.0The [facility] HospitalComment on above:Performed By: #### SMITA #### [facility] [address] [place] [address] Dr. Aixa ArguelloHCT53.2 %Hzmyme76.0-54.0The [facility] HospitalComment on above: Performed By: #### SMITA #### [facility] [address] [place] [address] Dr. Aixa CortésB17.0 g/ecElawfb93.0-18.0The [facility] HospitalComment on above: Performed By: #### SMITA #### [facility] [address] [place] [address] Dr. Aixa Wells #0.70 103/ulCritically low1.20-3.80The [facility] Comment on above:Performed By: #### SMITA #### [facility] [address] [place] [address] Dr. Aixa Wells%11.0 %Critically low20.5-60.0The [facility] HospitalComment on above:Performed By: #### SMITA #### [facility] [address] [place] [address] Dr. Aixa NelsonROCYTOSISSLIGHTSelect Medical Specialty Hospital - Cincinnati NorthComment on above: Performed By: #### SMITA #### [facility] [address] [place] [address] Dr. Aixa HooperH32.0 vzShxjvp22.9-34.0The [facility] HospitalComment on above: Performed By: #### SMITA #### [facility] [address] [place] [address] Dr. Aixa ArguelloMCHC32.0 g/uaGnycnv92.9-35.2The [facility] HospitalComment on above:Performed By: #### SMITA #### [facility] [address] [place] [address] Dr. Aixa HooperV100.0 fLCritically high80.0-94.0The [facility] HospitalComment on above:Performed By: #### CBCTILA #### [facility] [address] [place] [address] Dr. Aixa DiazAMYELOCYTE #NormalThe [facility] HospitalComment on above: Performed By: #### SMITA #### [facility] [address] [place] [address] Dr. Aixa EdwardsELOCYTE %NormalThe [facility] HospitalComment on above: Performed By: #### SMITA #### [facility] [address] [address] [address] Aixa Pierce#0.51 103/ulNormal0.30-0.80The [facility] HospitalComment on above:Performed By: #### SMITA #### [facility] [address] [address] [address] Aixa Pierce%8.0 %Normal1.7-12.0The [facility] HospitalComment on above: Performed By: #### SMITA #### [facility] [address] [address] [address] Aixa ArguelloMPV8.4 fLCritically low9.5-13.5The [facility] HospitalComment on above:Performed By: #### SMITA #### [facility] [address] [place] [address] Dr. Aixa Dhillon #NormalThe [facility] HospitalComment on above:Performed By: #### SMITA #### [facility] [address] [place] [address] Dr. Aixa LockeOCYTE %NormalThe [facility] HospitalComment on above:Performed By: #### SMITA #### [facility] [address] [place] [address] Dr. Aixa ArguelloNRBCNormalThe [facility] HospitalComment on above:Performed By: #### SMITA #### [facility] [address] [place] [address] Dr. Aixa ArguelloPLT195 103/gaCsuapg802-747Cnq [facility] HospitalComment on above: Performed By: #### CBCTILA #### [facility] [address] [place] [address] Dr. Aixa ArguelloRBC5.32 106/ulNormal4.70-6.10The [facility] HospitalComment on above:Performed By: #### SMITA #### [facility] [address] [place] [address] Dr. Aixa ArguelloRDW13.7 %Elsohv19.0-15.0The [facility] HospitalComment on above: Performed By: #### SMITA #### [facility] [address] [address] [address] Aixa Grewal #4.42 103/ulNormal1.40-6.50[facility] on above:Performed By: #### CBCMAN #### [facility] [address] [address] [address] Aixa Grewal %69.0 %Thanpc16.0-75.0The [facility] HospitalComment on above: Performed By: #### CBCMAN #### [facility] [address] [address] [address] Aixa ArguelloWBC6.4 103/ulNormal4.0-11.0The [facility] HospitalComment on above: Performed By: #### CBCMAN #### [facility] [address] [place] [address] Dr. Aixa BellID PROFILEon 28-83-2597MUEH-HDL RATIO NORMSEE [facility] HospitalComment on above:Result Comment: 3.3 - 4.4 LOW RISK 4.4 - 7.1 AVERAGE RISK 7.1 - 11.0 MODERATE RISK >11.0 HIGH RISKPerformed By: #### LIPID, TSH, BMP #### [facility] [address] [place] [address] Dr. Aixa Chilelesterol [Mass/Vol]158 mg/dLNormal<=200[facility] Comment on above:Performed By: #### LIPID, TSH, BMP #### [facility] [address] [place] [address] Dr. Aixa Hayes in HDL [Mass/Vol]79 mg/dLCritically pkeq36-76Zcb [facility] on above:Performed By: #### LIPID, TSH, BMP #### [facility] [address] [place] [address] Dr. Aixa Chilelesterol in LDL [Mass/Vol]53.0 mg/dLSelect Medical Specialty Hospital - [facility] NorthCombronson lakeview hospital on above:Performed By: #### LIPID, TSH, BMP #### [facility] [address] [place], [place] [address] Dr. Aixa ArguelloCholesterol.total/Cholesterol in HDL [Mass ratio]2.0 {ratio} NormalCleveland Clinic Union HospitalComment on above:Performed By: #### LIPID, TSH, BMP #### [facility] [address] [place] [address] Dr. Aixa Meneses NORMAL> or = 60 mg/dl - LOW CARDIOVASCULAR RISK <40 mg/dl - HIGH CARDIOVASCULAR RISKSelect Medical Specialty Hospital - [facility] NorthComment on above:Performed By: #### LIPID, TSH, BMP #### [facility] [address] [place] [address] Dr. Aixa ArguelloLDL CALC NORMALSEE BELOWNoOhio Valley Surgical HospitalComment on above:Result Comment: <100 mg/dl OPTIMAL 100 - 129 mg/dl NEAR OR ABOVE OPTIMAL 130 - 159 mg/dl BORDERLINE HIGH 160 - 189 mg/dl HIGH >190 mg/dl VERY HIGH Performed By: #### LIPID, TSH, BMP #### [facility] [address] [place] [address] Dr. Aixa ArguelloTriglyceride [Mass/Vol]130 mg/dLNormal<=150The [facility] Comment on above:Performed By: #### LIPID, TSH, BMP #### [facility] [address] [place] [address] Dr. Aixa BrunoLDL CALC26.0 mg/dLNoOhio Valley Surgical HospitalComment on above: Performed By: #### LIPID, TSH, BMP #### [facility] [address] [place] [address] Dr. Aixa ArguelloPROF CHEM 8 (BAS METB)on 14-25-6314Dfudo gap [Moles/Vol]9.0 mmol/LNormalCleveland Clinic Union HospitalComment on above:Performed By: #### LIPID, TSH, BMP #### [facility] [address] [place] [address] Dr. Aixa ArguelloCalcium [Mass/Vol]9.7 mg/dLNormal8.5-10.1[facility] Comment on above:Performed By: #### LIPID, TSH, BMP #### [facility] [address] [address] [address] Aixa ArguelloChloride [Moles/Vol]94 mmol/LCritically wfu94-152Oel [facility] HospitalComment on above:Performed By: #### LIPID, TSH, BMP #### [facility] [address] [address] [address] Aixa ArguelloCO2 [Moles/Vol]34.9 mmol/LCritically high21.0-32.0The [facility] HospitalComment on above:Performed By: #### LIPID, TSH, BMP #### [facility] [address] [address] [address] Aixa ArguelloCreatinine [Mass/Vol]1.11 mg/dLNormal0.70-1.30The [facility] HospitalComment on above:Performed By: #### LIPID, TSH, BMP #### [facility] [address] [place] [address] Dr. Aixa NicolasGFR-AF SWEDISH>60Normal>=60The [facility] HospitalComment on above:Performed By: #### LIPID, TSH, BMP #### [facility] [address] [address] [address] Aixa NicolasGFR-NON AF SWEDISH>60Normal>=60The [facility] Limament on above:Performed By: #### LIPID, TSH, BMP #### [facility] [address] [address] [address] Aixa ArguelloGlucose [Mass/Vol]86 mg/wDMgvgqy83-779Zsd [facility] Comment on above:Performed By: #### LIPID, TSH, BMP #### [facility] [address] [address] [address] Aixa ArguelloPotassium [Moles/Vol]4.9 mmol/LNormal3.5-5.1The [facility] Comment on above:Performed By: #### LIPID, TSH, BMP #### [facility] [address] [address] [address] Aixa ArguelloSodium [Moles/Vol]133 mmol/LCritically crl103-586Ymg [facility] HospitalComment on above:Performed By: #### LIPID, TSH, BMP #### [facility] [address] [address] [address] Aixa Lomas nitrogen [Mass/Vol]15.0 mg/dLNormal7.0-18.0The [facility] HospitalComment on above:Performed By: #### LIPID, TSH, BMP #### [facility] [address] [address] [address] Aixa ArguelloUrea nitrogen/Creatinine [Mass ratio]13.5 mg/mgNormalThe [facility] HospitalComment on above:Performed By: #### LIPID, TSH, BMP #### [facility] [address] [place] [address] Dr. Aixa Osborn 13-49-3172OHH0.357 uIU/mLNormal0.358-3.740The [facility] HospitalComment on above:Performed By: #### LIPID, TSH, BMP #### [facility] [address] [place] [address] Dr. Aixa Arguello Vital Signs Date TimeVital SignValuePerforming IfxdoyiufGclwtibo12-60-8797 15:51-0500Body jvcayr392.72 cmBenjamin Ball DO Work Phone: [phone] [place], [place] 6365511-05-2025 15:51-0500 Body mass index (BMI) [Ratio]18.7 kg/g7Ylsgbqym Ball DO Work Phone: [phone] [place], [place] 6365511-05-2025 15:51-0500 Body dyjonh75.96 kgBenjamin Ball DO Work Phone: [phone]11-05-2025 15:51-0500 Diastolic blood imsimvjw17 mm[Hg]Dony Ball DO Work Phone: [phone] [place], [place] 6365511-05-2025 15:51-0500 Heart rate50 /minBenjamin Ball DO Work Phone: [phone])688-[address] [place], [place] 6365511-05-2025 15:51-0500 Respiratory rate12 /minBenjamin Ball DO Work Phone: [facility]11-05-2025 15:51-0500 Systolic blood akbfkxpw15 mm[Hg]Dony Ball DO Work Phone: [facility]09-15-2024 23:30-0400 Diastolic blood wdolpblf74 mm[Hg]Ludmila Haylee [facility]09-15-2024 23:30-0400Heart rate91 /minNoah Haylee [address] [place], [place] 3190909-15-2024 23:30-0400Mean blood msojyfwd03 mm[Hg]Ludmila Haylee [address] [place], [place] 3190909-15-2024 23:30-0400 Respiratory rate19 /minNoah Haylee [address]09-15-2024 23:30-5617HdP0% (BldA) [Mass fraction]94 %Ludmila Haylee [facility]09-15-2024 23:30-0400 Systolic blood mwimljxf102 mm[Hg]Ludmila Haylee [facility]09-15-2024 23:15-0400 Diastolic blood rovbdhwe60 mm[Hg]Ludmila Haylee [facility]09-15-2024 23:15-0400Heart rate89 /minNoah Haylee [address] [place], [place] 3190909-15-2024 23:15-0400Mean blood jhuxgvlu67 mm[Hg]Ludmila Haylee [address] [place], [place] 3190909-15-2024 23:15-0400 Respiratory rate27 /minNoah Haylee [address] [place], [place] 3190909-15-2024 23:15-3178WnD5% (BldA) [Mass fraction]92 %Ludmila Haylee [address]09-15-2024 23:15-0400 Systolic blood mm[Hg]Ludmila Haylee [address] [place], [place] 3190909-15-2024 23:00-0400 Diastolic blood ubhhnkqe27 mm[Hg]Ludmila Haylee [address] [place], [place] 4464309-15-2024 23:00-0400Heart rate92 /minNoah Haylee [address] [place], [place] 4464309-15-2024 23:00-0400Mean blood oxdmcudb038 mm[Hg]Ludmila Haylee [address] [place], [place] 4464309-15-2024 23:00-0400 Respiratory rate21 /minNoah Haylee [address] [place], [place] 4464309-15-2024 23:00-0400 Systolic blood ahouitue291 mm[Hg]Ludmila Haylee [address] [place], [place] 4464309-15-2024 22:15-0400Heart rate85 /minNoah Haylee [address] [place], [place] 4464309-15-2024 22:15-0400 Respiratory rate22 /minNoah Haylee [address] [place], [place] 3190909-15-2024 22:05-0400Body aagozsxflpd42.34 [degF]Ludmila Haylee [address] [place], [place] 4464309-15-2024 22:05-0400Heart rate87 /minNoah Haylee [address] [place], [place] 3190909-15-2024 22:05-0400 Respiratory rate24 /minNoah Haylee [address] [place], [place] 3190909-15-2024 21:50-0400Body fynaktkcxem05.8 [degF]Ludmila Haylee [facility]09-15-2024 21:50-0400Heart rate93 /minNomagdaleno Haylee [facility]04-12-2024 13:56-0400Body fggibf517.72 cmMer[facility]04-12-2024 13:56-0400Body mass index (BMI) [Ratio]25 kg/o6IooyvriplMercy Health Urbana Hospital04-12-2024 13:56-0400Body levktm14.5 kgMercy Health [facility] Hospital04-12-2024 13:56-0400Diastolic blood phquyynr67 mm[Hg][facility] 12-12-2023 13:56-0400Heart rate82 /minMer[facility] Health [facility] 12-12-2023 13:56-0400Respiratory rate20 /minMer[facility] 12-12-2023 13:56-0400Systolic blood whhkkqih074 mm[Hg][facility]10-11-2023 15:30-0400Body epztku767.72 cmBenjamin Ball Other [employer] [facility] [employer] Other 714037-29-9659 15:30-0400Body mass index (BMI) [Ratio] 24.33 kg/m9Bcnaclvb Ball Other [employer] [facility] [employer] Other 310629-44-6221 15:30-0400Body kkmijd05.58 kgBenjamin Ball Other [employer] Other 10-11-2023 15:30-0400Diastolic blood rogrnybo35 mm[Hg] Dony Ball Other [employer] Other 415468-78-9703 15:30-0400Respiratory rate20 /minBenjamin Ball Other [employer] [facility] [employer] Other 10-11-2023 15:30-0400Systolic blood iccgaonm023 mm[Hg] Dony Ball Other [employer] Other 10-11-2023 14:30-0400Body zibyre893.72 cmBenjamin Ball Other [employer] Other 10-11-2023 14:30-0400Body mass index (BMI) [Ratio] 24.33 kg/i5Oxbtfdvp Ball Other [employer] Other 10-11-2023 14:30-0400Body .58 kgBenjamin Ball Other [employer] Other 10-11-2023 14:30-0400Diastolic blood fxzrdwah88 mm[Hg] Dony Ball Other [employer] Other 10-11-2023 14:30-0400Respiratory rate20 /minBenjamin Ball Other [employer] Other 10-11-2023 14:30-0400Systolic blood fcmoxcyj899 mm[Hg] Dony Ball Other [employer] Other 07-11-2023 13:45-0400Body yiqkcj619.72 cmBenjamin Ball Other [employer] Other 07-11-2023 13:45-0400Body mass index (BMI) [Ratio] 23.08 kg/t4Jtvbcfva Ball Other [employer] Other 07-11-2023 13:45-0400Body rbhuga35.86 kgBenjamin Ball Other [employer] Other 07-11-2023 13:45-0400Diastolic blood yetjbkld47 mm[Hg] Dony Ball Other [employer] Other 07-11-2023 13:45-0400Respiratory rate20 /minBenjamin Ball Other [employer] Other 07-11-2023 13:45-8294EkJ7% (BldA) [Mass fraction]94 % Dony Ball Other [employer] Other 07-11-2023 13:45-0400Systolic blood uxfbgjtv877 mm[Hg] Dony Ball Other [employer] Other 04-10-2023 16:30-0400Body .72 cmBenjamin Ball Other [employer] Other 04-10-2023 16:30-0400Body mass index (BMI) [Ratio] 24.69 kg/k4Sjjrcjzu Ball Other [employer] Other 04-10-2023 16:30-0400Body xalhgr54.66 kgBenjamin Ball Other [employer] Other 04-10-2023 16:30-0400Diastolic blood hfjpihez15 mm[Hg] Dony Ball Other [employer] Other 04-10-2023 16:30-0400Respiratory rate20 /minBenjamin Ball Other [employer] Other 04-10-2023 16:30-0400Systolic blood ypsqllbv141 mm[Hg] Dony Ball Other [employer] Other 01-10-2023 16:00-0500Body nxxqyr339.72 cmBenjamin Ball Other [employer] Other 01-10-2023 16:00-0500Body mass index (BMI) [Ratio]24.6 kg/b7Uwwlayby Ball Other [employer] Other 01-10-2023 16:00-0500Body .39 kgBenjamin Ball Other [employer] Other 01-10-2023 16:00-0500Diastolic blood mm[Hg] Dony Ball Other [employer] Other 01-10-2023 16:00-0500Respiratory rate20 /minBenjamin Ball Other [employer] Other 01-10-2023 16:00-6580QbT0% (BldA) [Mass fraction]90 % Dony Ball Other [employer] Other 01-10-2023 16:00-0500Systolic blood pxgjvtax151 mm[Hg] Dony Ball Other [employer] Other Encounters Encounter DateEncounter TypeCare ProviderFacilityStart: 07-06-2025 End: 37-36-2118ycipztrftaLqneuymi Ball DO Work Phone: [facility]Start[facility] 07-06-2025 End: 13-51-9690Nxcjsxn encounter procedureBenjamin Ball DO-[facility] Work Phone: Start: 21-26-4189Nqzbzoi encounter procedureBenjamin Ball DO Work Phone: [facility]: 08-18-2024 End: 71-24-6838uiryrrxiibTxtnxlj A RitterFacility:FTMCStart: 08-18-2024 End: 81-38-6074Ggxlfzi encounter procedureKaitlin A Ritter [facility] Start: 06-10-2024 End: 10-50-4363Gjtfoizgtf and management of inpatientJustin Laura MENA Work Phone: [facility] RadiologyStart: 06-09-2024 End: 89-79-0955Disfxszlfa and management of inpatientDebbistin Laura MENA Work Phone: [facility] RadiologyComment on above:ArrivedStart: 06-08-2024 End: 55-04-8034Ukwcvuzign and management of inpatientDebbistin Laura MENA Work Phone: [facility] RadiologyComment on above:ArrivedStart: 06-08-2024 End: 33-45-8093Sxjmrbfnem and management of inpatientNOAH [facility] Facility:[facility]HealthStart: 06-06-2024 End: 61-08-7276Dyskbqazms and management of inpatientJustin Laura MENA Work Phone: [facility] RadiologyComment on above:ArrivedStart: 06-06-2024 End: 73-86-9447Shetkfzsbb and management of inpatientDebbistdaisy Baca MD Work Phone: [facility] Radiology CTComment on above:ArrivedStart: 06-05-2024 End: 77-66-1696Olxeafepyq and management of inpatientDebbistin Laura MENA Work Phone: [facility] RadiologyComment on above:ArrivedStart: 06-04-2024 End: 96-72-4593Ooyfjwhioe and management of inpatientDebbistin Laura MENA Work Phone: [facility] RadiologyComment on above:ArrivedStart: 06-03-2024 End: 29-65-3442Xtalgegagy and management of inpatientJustin Laura MENA Work Phone: [facility] RadiologyStart: 06-02-2024 End: 24-51-2189Pkhytxbnqp and management of inpatientJustin Laura MENA Work Phone: [facility] RadiologyComment on above:ArrivedStart: 06-01-2024 End: 14-71-9222Mzokhfmiaw and management of inpatientJustin Laura MENA Work Phone: [facility] CTComment on above:ArrivedStart: 06-01-2024 End: 29-95-2024Utpbupjnwg and management of inpatientJustin Laura MENA Work Phone: [facility] RadiologyComment on above:ArrivedStart: 05-31-2024 End: 25-33-3614Fpszxwsnpf and management of inpatientDebbistin Laura MENA Work Phone: [facility] RadiologyComment on above:ArrivedStart: 05-30-2024 End: 81-35-0883Uinmbjvxiy and management of inpatientDebbistdaisy Baca MD Work Phone: [facility] CTComment on above:ArrivedStart: 05-30-2024 End: 74-31-0080Srezhvxbel and management of inpatientDebbistdaisy Baca MD Work Phone: [facility] RadiologyComment on above:ArrivedStart: 05-29-2024 End: 02-77-0255Qvesrlydha and management of inpatientDebbistin Laura MENA Work Phone: [facility] Radiology CTComment on above:ArrivedStart: 05-29-2024 End: 29-18-5980Evoevmdkwp and management of inpatientDebbistin Laura MENA Work Phone: [facility] RadiologyComment on above:ArrivedStart: 05-28-2024 End: 75-50-5618Aqjtdrpkhe and management of inpatientDebbistdaisy Baca MD Work Phone: [facility] RadiologyComment on above:ArrivedStart: 05-27-2024 End: 45-20-5946Kgfqmvrqmn and management of inpatientJustin Laura MENA Work Phone: [facility] RadiologyStart: 05-26-2024 End: 97-37-3051Ervdihitaq and management of inpatientDebbistdaisy Baca MD Work Phone: [facility] RadiologyComment on above:ArrivedStart: 2024 End: 38-28-4061Fgixokzaqp and management of inpatientJustin Laura MENA Work Phone: [facility] RadiologyComment on above:ArrivedStart: 60-84-2046Yxghsomqhk and management of inpatientNOAH [facility] Facility:[facility]Start: 05-24-2024 End: 09-91-6482Jqybddhfsf and management of inpatientJustin Laura MENA Work Phone: [facility] RadiologyComment on above:ArrivedStart: 05-23-2024 End: 02-98-6034Mmqxxkktci and management of inpatientDebbistdaisy Baca MD Work Phone: [facility] RadiologyComment on above:ArrivedStart: 05-22-2024 End: 82-34-5623Zsfudoitfd and management of inpatientDebbistdaisy Baca MD Work Phone: [facility] RadiologyComment on above:ArrivedStart: 05-21-2024 End: 44-92-8103Susfkhzdbx and management of inpatientDebbistdaisy Baca MD Work Phone: [facility] RadiologyComment on above:ArrivedStart: 05-20-2024 End: 76-54-0998Joddbwfreu and management of inpatientDebbistdaisy Baca MD Work Phone: [facility] RadiologyStart: 05-19-2024 End: 81-84-2248Yrgyxwrhpj and management of inpatientDebbistdaisy Baca MD Work Phone: [facility] Radiology CTComment on above:ArrivedStart: 05-19-2024 End: 87-08-3259Zexskpacdl and management of inpatientJustin Laura MENA Work Phone: [facility] RadiologyComment on above:ArrivedStart: 05-18-2024 End: 75-95-2199Oskezyivmf and management of inpatientJustin Laura MENA Work Phone: [facility] RadiologyComment on above:ArrivedStart: 05-17-2024 End: 05-17-2024ECharan VisitDebbikylah ZAMUDIO, LSWMetroKet[facility] Social WorkComment on above:Trauma/complex Medical SituationStart: 05-17-2024 End: 45-03-1925Reirjfieew and management of inpatientJustin Laura MENA Work Phone: [facility] RadiologyComment on above:ArrivedStart: 05-17-2024 End: 26-89-3716Upngodyohv and management of inpatientSjustin Cobian MD Work Phone: [facility] GC [address] WestStart: 05-17-2024 End: 67-65-6849Oymgqtjmoq and management of inpatientJustin Laura MENA Work Phone: [facility] Radiology CTComment on above:ArrivedStart: 05-17-2024 End: 09-99-9169yhsxeslpkyHJNUSBI PROVIDERFacility:[facility]HealthStart: 05-17-2024 Evaluation and management of inpatientNOAH WHITENERFacility:[facility]ROHealthStart: 05-16-2024 End: 27-84-2531Vffxgjiuh department patient visitNomagdaleno S. HayleeFacility:[facility] Start: 12-12-2023 End: 21-29-1388gdocfufzqeGmlpkoxebProMedica Bay Park Hospital Work Phone: Start: 12-12-2023 End: 93-42-4887Dejtoon encounter procedureAtrium Health [facility] Work Phone: Start: 09-18-2023 End: 84-36-7721cxwkucodtyJksqzgmy Ball Other [employer] Other Start: 05-23-3187Uxwmyhnnp encounterBenjamin BallFPG [facility] Medical ClinicStart: 09-08-2023 End: 92-74-5402ghvzcoidkaVnxcbain Ball Other [employer] Other Start: 35-93-8691Iegpmlnfg encounterBenjamin BallFPG [facility] ClinicStart: 06-11-2023 End: 54-89-8901rsivnswwtqRcwpippp Ball Other [employer] Other Start: 70-09-8530Zxdmbcc encounter procedureBenjamin BallFPG [facility] Medical ClinicStart: 50-51-2505Dbttkkowv encounterBenjamin BallFPG [facility] ClinicStart: 06-04-2023 End: 88-00-6227dsmilhqoqhPdjxiaqn Ball Other [employer] Other Start: 01-98-7286Cnmwfquhn encounterBenjamin BallFPG [facility] Medical ClinicStart: 06-03-2023 End: 48-03-6035irlgknfhftDygycitf Ball Other [employer] Other Start: 28-77-6305Ltkwdncfm encounterBenjamin BallFPG [facility] Medical ClinicStart: 05-29-2023 End: 65-86-6620amjzuguxnrIzpnvgrf Ball Other [employer] Other Start: 52-70-2336Sokxdbsib encounterBenjamin BallFPG [facility] ClinicStart: 03-11-2023 End: 74-51-8882xsynlcgfyjVolenojn Ball Other [employer] Other Start: 15-53-1506Ntmatzrzoiwu care manage srvc 7 day dischargeBeamna Moore Medical ClinicStart: 03-06-2023 End: 34-09-9269rlfqhskdvvLksggnzt Ball Other [employer] Other Start: 12-59-7960Wvulpqwaz encounterBeamna Moore Medical ClinicStart: 12-09-2022 End: 87-09-6893rtybyutzdkVwyttegb Ball Other [employer] Other Start: 52-32-6585Fxduin outpatient visit 25 minutes [facility] ClinicStart: 10-22-2022 End: 15-14-0594zhkjjfsyzlAI DONY BALLFacility:N3Yfmry: 09-10-2022 End: 47-64-2969pnmbnlmlwzIozawjwt Ball Other [facility] [employer] Other Start: 20-99-4393Ddqmsg outpatient visit 25 minutes [facility] ClinicStart: 02-13-2022 End: 99-91-3417nzinkxbgoqLM DONY BALLFacility:F3Htrvo: 56-49-3376Wnidu health examinationDony Moore Other [employer] Other Procedures DateProcedureProcedure DetailPerforming ClinicianStart: 37-31-8842Wxoqndtfad exam chest single viewMalik Ramos MD Work Phone: Start: 57-08-2722Wbvlrfawia exam chest single view Jose M Torres DO Work Phone: start: 57-39-1588Eyvegbocsl exam chest single view Malik Ramos MD Work Phone: Start: 34-36-1097Jm chest real time w/image Aman Reyna MD Work Phone: Start: 45-96-5274Xx thorax w/contrast materialLorne Strausbaugh DO Work Phone: start: 95-19-3794Vhylijobtk exam chest single view Valery Reyna MD Work Phone: [phone]: 08-77-1316Xvtmyxegdj exam chest single view Valery Reyna MD Work Phone: [phone]: 93-48-8852Bknmkatzli exam chest single view Valery Reyna MD Work Phone: [phone]: 91-73-2925Chypdhhjxl exam chest single view Cailin Beltran MD Work Phone: [phone]: 42-65-1459Hz thorax w/contrast materialCailin Beltran MD Work Phone: [phone]: 70-50-3489Wdqjgecrfi exam abdomen 1 viewRachel Lina DO Work Phone: [phone]: 42-11-5623Vskqcqymgn exam chest single view Matt Mikeboom DO Work Phone: [phone]: 18-24-1070Nc abdomen & pelvis w/contrast materialMatt Barba DO Work Phone: [phone]: 45-55-8428Zjatcekdze exam chest single view Rajiv Valdes MD Work Phone: [phone]: 95-48-0352Td abdomen & pelvis w/contrast materialCristopher Ramirez MD Work Phone: [phone]: 97-17-6315Jb angiography chest w/contrast/noncontrastAlexkarine Ramirez MD Work Phone: [phone]: 32-85-7750Iekbslarzi exam chest single view Rajiv Valdes MD Work Phone: [phone]: 12-98-2373Wdhbpsuxxj exam chest single view Lino Armijo MD Work Phone: [phone]: 28-75-7223Cmuqbegceg exam chest single view Jahaira Eduardo MD Work Phone: [phone]: 51-27-2693Ggzfxusxgf exam chest single view Lino Armijo MD Work Phone: [phone]: 30-72-3972Ajmkwjmhjj exam chest single view Lino Armijo MD Work Phone: [phone]: 99-70-6973Labbjyuniu exam chest single view Katie Mills DO Work Phone: [phone]: 38-98-1706Qtqshihdfv exam chest single view Matt Barba DO Work Phone: [phone]: 58-93-5973Effgmvkrrv exam chest single view Neyda Bobby MD Work Phone: [phone]: 30-31-3887Lzrsdbkcyb exam chest single view Neyda Bobby MD Work Phone: [phone]: 67-79-9613Vpgzctfbia exam chest single view Katie Mills DO Work Phone: [phone]: 46-38-8254Nu thorax w/o contrast Nikki Burton MD Work Phone: [phone]: 14-79-5874Jnvqdbyltc exam chest single viewKimberlee Wright DO Work Phone: [phone]: 02-02-6727Wamkdcmxaf exam chest single view Rahul Lewis MD Work Phone: Start: 05-17-2024 End: 59-44-9125In guidance needle placement img s&iSjustin Cobian MD Work Phone: [phone]: 91-62-2721Olozuuec procedure nervous system Shaan Cobian MD Work Phone: start: 53-02-0778Sczyixiqlk exam chest single view Rahul Lewis MD Work Phone: [phone]: 18-25-3803Ql pelvis w/o contrast Anayeli Ford DO Work Phone: Start: 79-20-4679Jxwqtkrzha screeningBenjamin Ball Other Depression screeningDony Moore Other Plan of Treatment DateCare ActivityDetailAuthorStart: 29-34-0977Pmyyhnpqi vaccinationInfluenza Vaccine (#1)[facility]Start: 34-99-1118LRJGE-19 Vaccine ( season) COVID-19 Vaccine ( season)[facility]HealthStart: 57-81-4930Limwawaze vaccinationInfluenza Vaccine (#1)[facility]HealthStart: 41-46-5824BEP Vaccine (75+ years)RSV Vaccine (75+ years)[facility]Start: 12-30-3146Fxyuuz wellness visit Annual Wellness Visit (G0438)[facility]HealthStart: 43-26-5487Psrdjukpyvdb vaccinationPneumococcal Vaccine(s) (65+ yrs) (1 of 1 - PCV)[facility]Start: 52-05-6852Jgbudmxyo B (HBV) Vaccine (optional start 60+ years)Hepatitis B (HBV) Vaccine (optional start 60+ years)[facility]Start: 55-45-0591Lyxtiafe (RZV) Vaccine (1 of 2)Shingles (RZV) Vaccine (1 of 2)[facility]HealthStart: 1959 Hepatitis A (HAV) Vaccine (optional start 19+ years)Hepatitis A (HAV) Vaccine (optional start 19+ years)[facility]Start: 62-79-3589Gqke BoosterTdap Booster [facility]HealthStart: 71-56-7411Xjlythzfzxzv vaccinationPneumococcal Vaccine(s) (65+ yrs) (1 of 2 - PCV)MetroHealthPEG WITH TRACHEOSTOMYPEG WITH TRACHEOSTOMY Routine scheduled Closed fracture of multiple ribs with flail chest, initial e ncounterMetroHealthTHORACOSCOPYTHORACOSCOPY 5/E - Within 24 Hours Closed fracture of multiple ribs with flail chest, initial encounterMetroHealth Immunizations Immunization DateImmunizationNotesCare VpbzblboBjzeuxst07-41-7936zrfmngudg, high dose seasonal, preservative-freeDony Moore Other [employer] Other 10536578-77-5447hxgcllsdp virus vaccine, unspecified formulationMercy Health [facility] Hospital07-11-2023Prevnar 20Benfrancois Moore Other [facility]10-19-2021influenza virus vaccine, split virus (incl. purified surface antigen)Dony Teresa Other [employer] Other 10303469-35-6690mklmpklkm virus vaccine, unspecified formulationMercy Health U[facility] Hospital12-02-2020influenza virus vaccine, split virus (incl. purified surface antigen)Dony Moore Other [employer] Other 12495732-38-7040gttkamsxs virus vaccine, unspecified formulationMercy Health Urbana Hospital Payers DatePayer CategoryPayerPolicy [id number] 2006Medicare MEDICARE - RAILROAD MEDICARE RAILROAD LONG-TERM [id number] 2006-Present [address] [address] [place] [address] [id number] [id number] 2.0.6.95396[id number] 2.0.2.717183.45688165-78-0910Mtmnbvh7032355 2.840.1.207223.3.579.2.5926-57-5279Ayboixj4752821 2..840.1.875287.3.579.2.47472-78-4645Jzbiqzc59787192 2.16.840.1.078136.3.579.2.90913-07-1311Wvgpxuj75002966 2.16840.1.844888.3.579.2.77442-94-4634Kxelhjy89619881 2.16.840.1.976912.3.579.2.07400-10-0489Vjoyrzo35067915 2.16.840.1.587825.3.579.2.70204-84-2597Mcojlke778583626 2.16.840.1.097035.3.579.2.60606-78-6743Ymzlyag096891521 2.16.840.1.573071.3.579.2.95316-40-9134Wckkajo531164308 2.16.840.1.432543.3.579.2.68823-72-4148Hearztu070741816 2.16.840.1.969383.3.579.2.51475-24-6197Jktjuws636020854 2.16.840.1.277120.3.579.2.84248-03-3193Ofzqkaq460539563 2.16.840.1.790776.3.579.2.62058-94-9600Ajuvxcf876764981 2.16.840.1.449002.3.579.2.90258-36-0628Utseaxb579154392 2.16.840.1.885121.3.579.2.52086-76-9109Uzyzfvk551359182 2.16.840.1.134132.3.579.2.29849-73-0106Whajekm082446291 2.16.840.1.306910.3.579.2.55215-51-3155Imspybt675261762 2.16.840.1.519610.3.579.2.65972-83-1129Mrgezyy185676932 2.16.840.1.350164.3.579.2.64289-93-9527Njifvxq007725457 2.16.840.1.930115.3.579.2.81780-11-9698Ahufgtu056500614 2.16.840.1.810818.3.579.2.07560-05-0856Gawyzus552439963 2.16.840.1.401586.3.579.2.95759-20-9211Nuboyyg772174441 2.16.840.1.615163.3.579.2.39750-34-4437Xftcrks284989637 2.16.840.1.658492.3.579.2.91185-92-9223Vapbjjo349307586 2.16.840.1.436388.3.579.2.94572-78-9916Mjlszci326082993 2.16.840.1.820315.3.579.2.15718-24-5868Tuhpxjn278247677 2.16.840.1.326838.3.579.2.58633-01-0340Hgxjwiz864148805 2.16.840.1.526284.3.579.2.84380-51-4690Nascxwa402832279 2.16.840.1.991871.3.579.2.96729-97-0650Zuzadbs396221017 2.16.840.1.558018.3.579.2.38913-48-6032Fckdnqm761636776 2.16.840.1.411211.3.579.2.76165-72-9375Jqebqjk989255988 2.16.840.1.238785.3.579.2.85315-01-4779Lsdlivk603138059 2.16.840.1.611683.3.579.2.23690-13-9836Ecjfkyj359580293 2.16.840.1.079166.3.579.2.43858-39-1054Xqliezw986531537 2.16.840.1.148518.3.579.2.77457-56-7600Protbxm084062786 2.16.840.1.677591.3.579.2.54149-34-7347Rzlvqck362347862 2.16.840.1.316028.3.579.2.91644-43-9873Kctvcnq198808013 2.16.840.1.141115.3.579.2.46190-03-4749Qzplqin686040916 2.16.840.1.486524.3.579.2.59511-34-5767Ldryvcy604900541 2.16.840.1.970347.3.579.2.02107-41-8052Fmaliii921134550 2.16.840.1.377065.3.579.2.90795-71-1649Qenmnjs374829011 2.16.840.1.365475.3.579.2.208 1928Aayvycv320811189 2.16.840.1.814069.3.579.2.83214-29-8715Jsxcnpy833819234 2.16.840.1.374627.3.579.2.46697-70-5011Hvmkgck920471714 2.16.840.1.645540.3.579.2.40375-64-4344Agfyikb275886234 2.16.840.1.072231.3.579.2.73769-64-2364Uugverk867393383 2.16.840.1.599780.3.579.2.61389-39-8124Ywdqqjk084534474 2.16.840.1.193345.3.579.2.59848-18-4986Vojlapv640702028 2.16.840.1.820293.3.579.2.50142-48-4629Hzskzdw134614723 2.16.840.1.005421.3.579.2.30244-51-2800Rxdcuti022320668 2.16.840.1.528699.3.579.2.28528-82-7888Uezzsao777974276 2.16.840.1.754381.3.579.2.97110-85-6349Qpwbjbx374148817 2.16.840.1.386554.3.579.2.85025-22-0121Bkvtbfp285965918 2.16.840.1.515603.3.579.2.58589-63-3292Hnmekti981443480 2.16.840.1.244524.3.579.2.41970-05-7176Ykjhhbw074903259 2.16.840.1.034463.3.579.2.51772-29-6041Gyuuppz245505367 2.16.840.1.482252.3.579.2.79901-78-1823Bpldhkc735544083 2.16.840.1.286884.3.579.2.56580-06-3572Ussmozf340218343 2.16.840.1.974137.3.579.2.28516-04-2665Fvxqqpc497622962 2.16.840.1.357670.3.579.2.06153-95-3574Hozfhqh613917689 2.16.840.1.522479.3.579.2.96313-65-6637Aofjoli623661573 2.16.840.1.034843.3.579.2.21121-71-0663Wfrploz496112864 2.16.840.1.318632.3.579.2.13588-57-3213Mnwhmnl393254403 2.16.840.1.943475.3.579.2.89682-24-4310Gstmvkh609802182 2.16.840.1.042539.3.579.2.64673-53-3180Gyiuoza231389503 2.16.840.1.086848.3.579.2.41869-36-8265Ppuykqy445361999 2.16.840.1.939996.3.579.2.68621-68-8878Gzsozpi667995809 2.16.840.1.066017.3.579.2.31671-94-2685Jorxcbn437208178 2.16.840.1.287573.3.579.2.93123-16-0037Lufsmdb878966534 2.16.840.1.468394.3.579.2.49671-60-6393Xdclyif508259551 2.16.840.1.502074.3.579.2.71837-12-7348Dciysgz59873610 2.840.1.288252.3.579.2.48217-01-2518Nzqlrnu78837026 2.840.1.543104.3.579.2.727 Social History DateTypeDetailFacilityStart: 84-58-6831Wqb Assigned At BirthMetroHealthStart: 84-47-8760Hgp Assigned At BirthMiami Valley HospitalTobacco smoking status NHISTobacco smoking consumption unknownMetroHealthStart: 52-57-7229Hrh assigned at birthNot on fileMetroHealthStart: 48-15-6230Rvpdlea of Social functionMetroHealth(I/We) worried whether (my/our) food would run out before (I/we) got money to buy more.Never trueMetroHealthIn the past 12 months, has lack of transportation kept you from medical appointments or from getting medications?NoMetroHealthIn the past 12 months, was there a time when you were not able to pay the mortgage or rent on time?NoMetroHealthStart: 05-16-2024 Tobacco smoking statusLight tobacco smoker (finding)[facility]art: 84-57-0958Crllfcw smoking status NHISCurrent some day smoker The [facility]Health SystemexMale (finding)[facility] Medical Equipment Procedure CodeEquipment CodeEquipment Original TextEquipment IdentifierDatesCap Orth Lck Hex Drv Ns Lf Ea1 [id number] - [id number]_maeAoclx: 85-96-9340Zkc 23mm Brdg Lck Post Ea1 0580441 - [id number]_fytVstlp: 49-91-7298Cbtp Orth 23mm Lng Brdg Post Ea1 4417284 - [id number]_dtrDmvon: 33-05-8313Kjbg Orth Ns Lf Ea1 2851756 - [id number]_bpfAbeuw: 05-20-2024 Functional Status XsveUyojhvlxvqTbgojjAsscgril75-39-3275Xnmtqbbnam StatusN/AFGe[facility] Clinical Notes 09-10-2022 to 06-10-2024 Note Date & LxesXiyqAyrqcloi02-37-3358 NoteThe [facility]09-25-20[facility] Note -per patient controlled by oxycodone 10 mg q4hr prn for severe pain -consider pain management consult for consideration of procedure options for non-cancer acute painThe [facility]09-24-2024 Note-per patient controlled by oxycodone 10 mg q4hr prn for severe pain -consider pain management consult for consideration of procedure options for non-cancer acute painThe [facility]09-16-20[facility] Anesthesiology procedure note* Anesthesia Acute Pain - Maurisio Fontanez MD - 05/17/2024 7:10 PM EDT Acute Pain Service Follow Up Note Patient with R-sided MADDIE catheter in situ for post-operative pain (+-7cm catheter length threaded into plane). Current basal infusion rate: 0.4% Lidocaine 12cc c71iylg intermittent bolus with no patient bolus. Subjective: [...] work hours or the Senior Anesthesiaresident education courses sales representative in the Main OR after hours if there are any questions. Maurisio Fontanez MD Anesthesia PGY-4 Pain pager: [phone] [facility] Work Phone: [phone] Miscellaneous Notes* Anesthesia Acute Pain - Maurisio Fontanez MD - 05/17/2024 7:10 PM EDT Acute Pain Service Follow Up Note Patient with R-sided MADDIE catheter in situ for post-operative pain (+-7cm catheter length threaded into plane). Current basal infusion rate: 0.4% Lidocaine 12cc p21kjuh intermittent bolus with no patient bolus. Subjective: [...] work hours or the Senior Anesthesiaresident education courses sales representative in the Main OR after hours if there are any questions. Maurisio Fontanez MD Anesthesia PGY-4 Pain pager: [phone] * Anesthesia Acute Pain - Shaan Cobian [...] Pulmonary: COPD Cardio-vascular: HTN, CAD, and Previous LA Musculoskeletal: LUE, LLE, RUE, and RLE motor [...] Social Determinants of Health Received from [facility] Safety & Environment has no history on [...] Pain Medicine 05/17/2024, 2:17 PM APS service [phone] Associated attestation - Girish Shannon MD - [...] time. Girish Shannon MD documented in this agzeajzwzEkanaEqrcix91-57-3827 Anesthesiology procedure note * Anesthesia Acute Pain [...] Pulmonary: COPD Cardio-vascular: HTN, CAD, and Previous LA Musculoskeletal: LUE, LLE, RUE, and RLE motor [...] Social Determinants of Health Received from [facility] Safety [facility] Environment has no history on [...] Nursing Vital Records for more details. Shaan Cobain MD Anesthesiology and Pain Medicine 05/17/2024, 2:17 PM APS service [phone] Associated attestation - Girish Shannon MD - [...] toxicity at this time. Girish Shannon MD PyefkIkxszu84-59-2100 Anesthesiology procedure note* Anesthesia Procedure Notes - [...] Slow fractionated injection: yes No block complications QvztkSlmkks45-50-3232 Surgical operation note* Anesthesia Procedure Notes - [...] yes No block complications documented in this asrumsxnsWijzySaxjjx79-95-2810 History of Present illness Narrative* Jane Samson SW, LSW - 05/17/2024 1:24 AM EDT Cat 1 Pt is an 83 yo M presenting via [facility] from [facility] s/p fall down 6-8 steps with multiplerib fractures, hemathorax with chest tube, and pubic ramus fracture. Per report pt fell down basement steps and was on the ground for 1-1.5 hours until his spouse foundhim and called 911. With permission, ROBB contacting spouse Ilana Michelle ([phone]). Spouse aware of pt'spresentation to ED and plan to admit. Spouse plans to call/visit tomorrow. Plan: Admit MARGIE Mendez, CAITLIN ED Route Sales Representative documented in this p[id number] NoteConsultation Note TRAUMA HISTORY & PHYSICAL BASIC [...] Lymph Auto: 8.6 % Low (05/16/24 21:58:00) Dukes Auto: 4.3 % (05/16/24 21:58:00) Eos Auto: 3 % (05/16/24 21:58:00) Basophil Auto: 0.4 % (05/16/24 21:58:00) Neutro Absolute: 14.5 E9/L High (05/16/24 21:58:00) Lymph Absolute: 1.5 E9/L (05/16/24 21:58:00) Dukes Absolute: 0.7 E9/L (05/16/24 21:58:00) Eos Absolute: 0.5 E9/L (05/16/24 21:58:00) Basophil Absolute: 0.1 E9/L (05/16/24 21:58:00) PT: 9.3 second(s) Low (05/16/24 21:58:00) INR: 0.83 (05/16/24 21:58:00) PTT: 29.9 second(s) (05/16/24 21:58:00) Glucose Lvl: 143 mg/dL (05/16/24 21:58:00) BUN: 20 mg/dL (05/16/24:58:00) Creatinine: 0.8 mg/dL (05/16/24 21:58:00) eGFR: 88 mL/min/1.73 m2 (05/16/24 21:58:00) BUN/Creat Ratio: 25 High (05/16/24:58:00) Sodium Lvl: 126 mmol/L Low (05/16/24:58:00) Potassium Lvl: 3.8 mmol/L (05/16/24:58:00) Chloride: 92 mmol/L Low (05/16/24:58:00) CO2: 23 mmol/L (05/16/24:58:00) AGAP: 15 mEq/L (05/16/24:58:00) Calcium Lvl: 9.5 mg/dL (05/16/24:58:00) Alk Phos: 62 Int._Unit/L (05/16/24:58:00) ALT: 23 Int._Unit/L (05/16/24:58:00) AST: 34 Int._Unit/L (05/16/24:58:00) Total Protein: 7 gm/dL (05/16/24:58:00) Albumin Lvl: 4.4 gm/dL (05/16/24:58:00) Globulin: 2.6 gm/dL (05/16/24:58:00) A/G Ratio: 1.7 (05/16/24:58:00) Bili Total: 0.3 mg/dL (05/16/24:58:00) Bili Direct: 0.1 mg/dL (05/16/24:58:00) Bili Indirect: 0.2 mg/dL (05/16/24:58:00) Lipase Lvl: 40 unit/L (05/16/24:58:00) Lactic Acid Lvl: 2.5 mmol/L High (05/16/24 21:58:00) Troponin HS: 5.4 pg/mL Low (05/16/24 21:58:00) Ethanol Lvl: 18 mg/dL High (05/16/24 21:58:00) ABO/Rh: A POS (05/16/24 21:58:00) ABSC Gel Interp: Negative (05/16/24 21:58:00) RADIOLOGY: all imaging personally reviewed by me in real time to expedite patien (more content not included)...[facility] Medical CenterComment on above: Result Comment: Electronically Signed By: Mackenzie MENA, Santos Brock.zarina\Date and Time Signed: 05/17/24 00:05 [id number] NoteProcedural PROCEDURE NOTE: PIGTAIL CHEST TUBE PLACEMENT [...] tolerated the procedure well. Santos Mann MD [facility] Trauma and Emergency General SurgeryDiley Ridge Medical Center09-15-2024 Evaluation + Plan noteExtracted from:Title:ED Note Author:Haylee Ludmila HoaDate:05/16/24 Closed head injury (S09.90XA : Unspecified injury [...] Tests Pending * Drug Screen Urine 05/16/24 [facility] 01-18-2024 Evaluation note* Encounter Date Diagnosis Assessment Notes Treatment Notes Treatment Clinical Notes Sep, Xerosis cutis (ICD-10 - L85.3) [facility] Other 10-11-2023 Evaluation note* Encounter Date Diagnosis [...] consistent w/ hypothyroid or TSH > 8 [facility] Other 10-11-2023 Evaluation note* Encounter Date Diagnosis [...] respiratory infections, vascular disease and c ancers. [facility] Other 10-03-2023 Evaluation note* Encounter Date Diagnosis Assessment Notes Treatment Notes Treatment Clinical Notes Jun, Pulmonary nodule (ICD-10 - R91.1 ) CT: 1.1cm EMMIE nodule - 03/2023, CT: no change EMMIE nodule - 06/2023 [facility] Other 09-28-2023 Evaluation note* Encounter Date Diagnosis Assessment Notes Treatment Notes Treatment Clinical Notes May, Pulmonary nodule (ICD-10 - R91.1 ) [facility] Other 07-11-2023 Evaluation note* Encounter Date Diagnosis [...] Small subsegmental PE does not require AC [facility] Other 04-10-2023 Evaluation note* Encounter Date Diagnosis [...] low fat diet. Monitor for GI bleeding. [facility] Other 01-10-2023 Evaluation note* Encounter Date Diagnosis [...] without hemorrhage (ICD-10 - K21.00) Sep,OtherSymtoms tolerable [facility] Other Evaluation noteNo InformationNortGeisinger Community Medical Center [facility] Other Evaluation noteNo assessment information available [facility] Work Phone: History general Narrative - [...] extremitySurgical HistoryIVC filterSurgical HistoryappendectomyHospitalization Historysee surgical history [facility] Other History general Narrative - Reported* Type [...] HistoryIVC filterSurgical Historyappendectomy Hospitalization Historysee surgical history [facility] Other Hospital course Narrative No data available for this section [facility] Discharge instructions No data available for this section [facility] Procedure anesthesia Narrative* Procedure Name Responsible AnesthesiologistAnesthesia Start TimeAnesthesia Stop TimeACUTE PAIN LIPGVTEUncuWnqgKxzvfNgruhvn83/16/60217818TR Equip Check* NameTotal lidocaine methylparaben-free (XYLOCAINE) injection 2 %20 mL * Agents No agents on file. * Blood No blood administrations on file. TypeDetailsPlacementRemovalChest Tube:05/17/24; Right, Upper; Abdomen; Present on Arrival to Hospital / Inserted by EMS05/17/24 0000 by Susan Webb RN Indwelling Urinary Ddwnecha00/16/24; 0326; 16 FR; Temperature-sensing catheter; 10; RN05/17/24 0326 by Susan Webb RNEpidural05/17/24; [id number]/17/24 1400 by Amanda Whipple RNPeripheral IV Line05/19/24; 1200; 20 gauge; Anterior, Right; Hiqvolo49/18/24 1200 by Amanda Whipple RNPeripheral IV Line05/19/24; 1200; 18 gauge; Left, Posterior; Wrist05/19/24 1200 by Amanda Whipple RN [facility] N[facility] Procedure NameResponsible AnesthesiologistAnesthesia Start TimeAnesthesia Stop TimeACUTE PAIN CONSULT TxjfXmsgPyioeHkurmcn44/16/[id number] Equip Check* NameTotallidocaine methylparaben-free (XYLOCAINE) injection 2 %20 mL * Agents No agents on file. * Blood No blood administrations on file. TypeDetailsPlacementRemovalIndwelling Urinary Hyhihexd10/16/24; 0326; 16 FR; Temperature-sensing catheter; 10; RN05/17/24 0326 by Susan Webb RN Tdkbgdgl82/16/24; 1400 by Aamnda Whipple RNPeripheral IV Line 05/19/24; 1200; 18 gauge; Left, Posterior; Wrist05/19/24 1200 by Amanda Whipple RNAdvanced Gbtsqu84/18/24; 1430; # 7.5; Bilateral breath sounds, Equal chest rise & fall, End-tidal CO2 color detector (+color change); Equal bilateral breath sounds, CO2 confirmed; Glidescope, Bite block vddzci11/18/24 1430 by Amanda Whipple RNArterial Line05/19/24; 1530; Left; Bollie35/18/24 1530 by Amanda Whipple RNWound05/19/24; 2030; Right; Arm; Other; infiltration of levophed; N005/19/242029 by Cristina Sun RNOG/NG05/19/24; 2100; O/G; 18 Fr; Oral; 60 cm05/19/242099 by Amanda Whipple RNCVC - Triple Lumen05/19/24; 2144; Central Line; Left; IJ; wire-guided, ultrasound ltwdox15/18/24 214 by Cristina Sun RNChest Tube:05/20/24; 1505; # 1; Right, Upper; Ealdved64/19/24 1505 by Chon Arvizu Tube:05/20/24; 1506; # 2; Right, Upper; Rcfbwoz23/19/24 1506 by Nalini Arvizu05/20/24; 1520; Right; Chest; Surgical - Incision; 1 incision sutured dressed with island dressingchest tubes dressed with xeroform and tegadermtegaderm and 2x2 to previous chest tube site05/20/24 1520 by Geraldine Arvizu in this encounter [facility] N[facility]* Procedure NameResponsible AnesthesiologistAnesthesia Start TimeAnesthesia Stop TimeACUTE PAIN CONSULT TtwlCcqwZjtbtBpmduqe38/16/[id number] Equip Check* NameTotallidocaine methylparaben-free (XYLOCAINE) injection 2 %20 mL * Agents No agents on file. * Blood No blood administrations on file. TypeDetailsPlacementRemovalIndwelling Urinary Rpucojnm33/16/24; 0326; 16 FR; Temperature-sensing catheter; 10; RN05/17/24 0326 by Susan Webb RN Lqpnivpv65/16/24; [id number]/17/24 1400 by Amanda Whipple RNWound05/19/24; 2030; Right; Arm; Other; infiltration of levophed; [id number] by Cristina Sun RNCVC - Triple Lumen05/19/24; 2145; Central Line; Left; IJ; wire-guided, ultrasound bnggwy81/18/24 214 by Cristina Sun RNChest Tube:05/20/24; 1505; # 1; Right, Upper; Mtyfubs08/19/24 1505 by Chon Arvizu Tube:05/20/24; 1506; # 2; Right, Upper; Ndjrudi72/19/24 1506 by Negra ArvizuWound05/20/24; 1520; Right; Chest; Surgical - Incision; 1 incision sutured dressed with island dressingchest tubes dressed with xeroform and tegadermtegaderm and 2x2 to previous chest tube site05/20/24 1520 by Negra ArvizuOG/NG05/21/24; 1530; Nostril; 60 cm05/21/24 1530 by Sukhwinder Ca, RNPeripheral IV Line05/22/24; 0941; 20 gauge; Posterior, Right; Wrist05/22/24 0941 by Sukhwinder Ca, RNPeripheral IV Line05/22/24; 0943; 20 gauge; Left, Posterior; Wrist05/22/24 0943 by Sukhwinder Ca, RNdocumented in this encounter [facility] note No data available for this section [facility] Reason for referral (narrative)No reason for referral information availableSouthwest General Health Center Work Phone: Summary Purpose Family History No Family History [...] No Family History Records Found Advance Directives Date ActivatedDate InactivatedComments05/17/2024 3:52 AM06/10/2024 5:53 PM [...] Full Code Date ActivatedDate InactivatedComments05/17/2024 3:52 AM Advance Directive Response Recorded Date/ Time Advance Directives No September 24, 2023 3:00pm Chief Complaint and Reason for Visit Chief Complaint 6 month follow up Chief Complaint Admit Date diarrhea July 06, 2025 3 :39pm Additional Source Comments REASON FOR VISIT (unrecogniz ed section and content) ReasonCommentsTrauma/complex Medical SituationSpecialtyDiagnoses / Procedures Referred By ContactReferred To [facility]De[facility] Medicine Diagnoses Fall (on) (from) other stairs [...] right rib fractures with chest tube Procedures [employer] [facility] [place] [address] Phone: [phone] [employer] [place] [address] Phone: [phone] Referral IDStatusReasonStart DateExpiration DateVisits RequestedVisits [id number] (unrecognized sect ion and content) No Status [...] and content) DATE CREATED AUTHOR 10/26/2022 [facility] DATE CREATED AUTHOR AUTHOR'S ORGANIZ ATION 05/17/2024 [facility] DATE CREATED AUTHOR AUTHOR'S ORGANIZ ATION 07/12/[address] [facility] DATE CREATED AUTHOR AUTHOR'S ORGANIZ ATION 07/20/[address] [facility] DATE CREATED AUTHOR AUTHOR'S ORGANIZ ATION 08/26/2024 [facility] Care Teams (unrecognized sec tion and content) Team Status: Active Member Role Status Dates Dony Moore DO Primary Care Provider Active Team Status: Inactive Member Role Status Dates Dony Moore DO Primary Care Provide r, Attending Provider Active Start: December 12, 2023 End: December 12, 2023 Team Status: Active Member Role/Relationship Status Dates Dony Moore DO Primary Care Provider Active Team Status: Inactive Member Role/Relationship Status Dates Dony Moore DO Primary Care Provider Active Start: July 06, 2025 End: July 06enjakisha Moore DOAttending ProviderActiveStart: July 06, 2025 End: July 06, 2025 Goals (unrecognized section and content) Goals may [...] BE BASED ON THE PRIMARY CLINICAL RECORDS. [facility] [employer] [facility]. provides no warranty or guarantee of the accuracy or completeness of information in this document.
[2025-07-06] MEDS: DEXTROSE IV (23:00)
[2025-07-06] MEDS: HEPARIN SODIUM (PORCINE) 5,000 UNIT/ML VIAL 5000 UNIT SUBQ (23:00)
[2025-07-06] MEDS: SOD CHLORD IV (23:00)
[2025-07-06] MEDS: SODIUM BICARBONATE IV (23:00)
[2025-07-06] MEDS: METRONIDAZOLE/SODIUM CHLORIDE 500 MG/100 ML PREMIX 100 MG IV (23:41)
[2025-07-07] VITALS (7 sets, daily range): BP systolic 86–93; BP diastolic 49–52; PULSE 70–85; TEMP 36.8; O2SAT 95
[2025-07-07] MEDS: SODIUM BICARBONATE IV (04:04)
[2025-07-07] MEDS: SOD CHLORD IV (04:04)
[2025-07-07] MEDS: DEXTROSE IV (04:04)
[2025-07-07 05:56] LABS: Hematocrit 33.1 % (42.0-54.0); Hemoglobin 12.0 g/dL (14.0-18.0); Immature Granulocytes Abs Auto 0.02 10^3/uL (0.00-0.03); Immature Granulocytes Pct Auto 0.2 % (0.0-0.5); Lymphocytes Absolute Auto 0.5 10^3/uL (1.2-3.8); Mean Corpuscular HGB Conc 36.3 g/dL (29.9-35.2); Mean Corpuscular Hemoglobin 34.5 pg (25.9-34.0); Mean Corpuscular Volume 95.1 fL (80.0-94.0); Platelet Count 242 10^3/uL (150-450); Red Blood Count 3.48 10^6/uL (4.70-6.10); White Blood Count 10.0 10^3/uL (4.0-11.0)
[2025-07-07 06:32] LABS: Anion Gap 20.8; Calcium 6.9 mg/dL (8.5-10.1); Carbon Dioxide 15.2 mmol/L (21.0-32.0); Chloride 101 mmol/L (98-107); Estimated GFR (African America 8 (>=60 mL/min/1.73m^2); Estimated GFR (Non-African Ame 6 (>=60 mL/min/1.73m^2); Glucose 157 mg/dL (74-106); Potassium 3.0 mmol/L (3.5-5.1); Sodium 134 mmol/L (136-145)
[2025-07-07 06:35] LABS: Blood Urea Nitrogen 172.0 mg/dL (7.0-18.0)
--- NOTE | 2025-07-07 08:40 | CM.NOTE ---
Rounds made with Dr. Mace, discussed with pt reason for admission and testing results. Dr. Calvillo also discussed with pt need to transfer to [facility]. Pt is in agreement for transfer. Dr. Calvillo will attempt to contact pt's for update.
[2025-07-07] MEDS: ACETAMINOPHEN 325 MG TABLET 650 MG PO (08:45)
[2025-07-07] MEDS: HEPARIN SODIUM (PORCINE) 5,000 UNIT/ML VIAL 5000 UNIT SUBQ (08:45)
[2025-07-07] MEDS: METRONIDAZOLE/SODIUM CHLORIDE 500 MG/100 ML PREMIX 100 MG IV (08:45)
--- NOTE | 2025-07-07 08:53 | P.EN_ITS ---
Event Note Event Note: Mr. Michelle is an 85-year-old gentleman who came in yesterday with hypotension. He was found to have acute kidney failure with metabolic acidosis. Patient reported that he has been having diarrhea for a month. No abdominal pain. On exam, there is no abdominal tenderness. CAT scan does not show any obstructive uropathy No bladder distention or urinary retention. I had accepted to admit him to the medical floor. I started him on fluid with sodium bicarb This morning, his bicarbonate is improved. His creatinine had improved however his BUN went up to 173. No clinical evidence of uremic encephalopathy. Patient is awake and able to answer questions. He feels very weak. Oliguric renal failure likely secondary to severe volume depletion in the setting of patient taking lisinopril at home Less likely ischemic colitis I discussed this case with oracle financial application developer Dr. Singh Patient may have ATN or acute prerenal renal failure. Patient did not respond significantly overnight IV fluid infusion. The plan is made to transfer him to [facility] for additional treatment and consideration to initiate hemodialysis. I called his Veronica. She did not answer the phone. The mailbox cannot accept messages. I will try to call her.
--- NOTE | 2025-07-07 09:15 | CM.NOTE ---
CM contacted for Dr. Calvillo, Dr. Calvillo provided with update. Pt and both in agreement for transfer to [facility].
--- NOTE | 2025-07-07 09:19 | CM.NOTE ---
Vinicio txt sent to [facility] to call [facility] transfer line to initiate transfer for pt.
[2025-07-07 09:28] LABS: Glucose Urine UA NEGATIVE (NEGATIVE)
--- NOTE | 2025-07-07 09:30 | CM.NOTE ---
Vinicio cortez received from [facility] that pt has bed at [place] [address] [address] Nova. Updated Dr. Calvillo and RN. Med surg quiller tender Ivania also updated.
--- NOTE | 2025-07-07 09:32 | SWNOTE1 ---
SW was consulted due to 's concerns about pt's ability to care for himself at home. The plan is for pt to be transferred to [facility] for higher level of care. Pt has been accepted at [facility].
--- NOTE | 2025-07-07 09:34 | CM.NOTE ---
Phone call placed to [facility] requesting transfer. Ivania stated they already spoke with Dr Calvillo and the patient has been accepted by Dr Nova on 3T room 3018 bed 2. The nurse can call report to [phone]. A face sheet was faxed to [facility] at [phone].
--- NOTE | 2025-07-07 09:54 | PM.HP ---
HPI H&P: HPI History of Present Illness Chief complaint: LOW BLOOD PRESSURE/CAMILLA, COLITIS, CONSTIPATION Narrative: Mr. Michelle is an 85-year-old gentleman who has been having diarrhea for a month according to him and his . stated that he declined to go see his doctor. Eventually he went to see his doctor yesterday. He was noted to have low blood pressure. 70 systolic. He was sent to the emergency room where he was found to be hypotensive as well as having acute kidney failure. His kidney function in January was normal. Yesterday his BUN was 150 and creatinine is 8.28. His potassium is 3.6 and a bicarb of 9.5. I requested UA but patient is unable to make urine. I requested CT scan to rule out obstructive uropathy that came back negative. I had excepted him to be admitted to [facility] and started him on D5 half-normal with 2 A of sodium bicarb at 200 an hour. Patient is still not making urine this morning. Patient denies any abdominal pain but ongoing diarrhea. No hematemesis or melena. No fever or chills. Patient is weak overall. No unilateral deficit. No chest pain or palpitation. No shortness of breath. Opioid HPI Opioid Management Most Recent Pain and Opioid Data: Last Pain Scale 6 Today, 09:49 Last Pain Intensity 0 03/05/23, 09:19 Last Pain Assessment Today, 09:00 Last MAR Pain Assessment Today, 09:49 Last ORT Total Score 0 07/06/25, 22:03 Last ORT Risk Category Low Risk 07/06/25, 22:03 Review of Systems ROS Status of ROS 10 or more systems reviewed and unremarkable except as noted in history and below [facility] Medical History (Updated 07/07/25 @ 09:57 by Sunil Calvillo MD) PVD (peripheral vascular disease) ?I73.9 - Peripheral vascular disease, unspecified (ICD-10) H/O deep venous thrombosis ?Z86.718 - Personal history of other venous thrombosis and embolism (ICD-10) History of mechanical ventilation ?Z92.89 - Personal history of other medical treatment (ICD-10) 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) Hyponatremia ?E87.1 - Hypo-osmolality and hyponatremia (ICD-10) Hypertension ?I10 - Essential (primary) hypertension (ICD-10) COPD (chronic obstructive pulmonary disease) ?J44.9 - Chronic obstructive pulmonary disease, unspecified (ICD-10) 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) COPD exacerbation ?J44.1 - Chronic obstructive pulmonary disease with (acute) exacerbation (ICD-10) Surgical History S/P IVC filter ?Z95.828 - Presence of other vascular implants and grafts (ICD-10) Family History (Updated 07/06/25 @ 22:02 by Ange Ervin, JOSÉ MANUEL) Other Family history of COPD (chronic obstructive pulmonary disease) Family history of cancer Family history of hypertension Family history of stroke Social History (Updated 07/06/25 @ 22:03 by Ange Ervin, JOSÉ MANUEL) Within the past year, how often did you have a drink containing alcohol: never Score interpretation: A score less than 4 is consistent with normal alcohol consumption. Smoking status: Current every day smoker Non-prescribed substance use: denies use Highest level of school completed/degree received: high school graduate Are you now , , , , never or living with a partner: Little interest or pleasure in doing things: not at all Feeling down, depressed, or hopeless: not at all Do you think of yourself as: straight/heterosexual Gender Identity: male Meds Home Medications and Allergies Home Medications ?Medication ?Instructions ?Recorded ?Confirmed ?Type lisinopril 40 mg tablet 40 mg PO DAILY 02/28/23 07/06/25 History metoprolol succinate 25 mg 25 mg PO DAILY 02/28/23 07/06/25 History tablet,extended release 24 hr Allergies Allergy/AdvReac Type Severity Reaction Status Date / Time No Known Drug Allergies Allergy Verified 12/16/24 16:34 Exam Narrative Exam Narrative: Cachectic and frail in appearance. Dry skin and buccal mucosa. Patient is awake. Able to answer questions. Able to follow commands. Patient is very weak. Unable to sit up or stand up on his own. Chest is clear, heart is regular. Abdomen is soft. Nontender. No rigidity. Lower extremities muscle wasting atrophy. No edema. Constitutional Vital Signs, click to edit/add: Last Vital Signs Temp 98.2 F 07/07/25 08:37 Pulse 85 07/07/25 09:52 Resp 22 H 07/07/25 08:37 BP 86/49 L 07/07/25 08:37 Pulse Ox 95 07/07/25 08:37 O2 Del Method Room Air 07/07/25 08:37 Results Labs Labs: Short CBC 07/06/25 07/07/25 Range/Units 17:35 05:28 WBC 12.3 H 10.0 (4.0-11.0) 10^3/uL Hgb 15.4 12.0 L (14.0-18.0) g/dL Hct 43.4 33.1 L (42.0-54.0) % Plt Count 426 242 (150-450) 10^3/uL BMP 07/06/25 07/07/25 17:35 05:28 Sodium 134 L 134 L Potassium 3.6 3.0 L Chloride 100 101 Carbon Dioxide 9.5 L 15.2 L BUN 157.0 H* 172.0 H* Creatinine 8.28 H* 8.04 H* Glucose 81 157 H Calcium 6.7 L 6.9 L Liver Function 07/06/25 Range/Units 17:35 Total Bilirubin 0.2 (0.2-1.0) mg/dL AST 23 (15-37) U/L ALT 24 (16-63) U/L Alkaline Phosphatase 77 (46-116) U/L Albumin 2.9 L (3.4-5.0) g/dL Urine 07/07/25 Range/Units 09:16 Urine Color Yellow (YELLOW) Urine Clarity Clear (CLEAR) Urine pH 5.0 (5.0-9.0) Ur Specific [place] 1.020 (1.005-1.025) Urine Protein 30 A (NEG/TRACE) mg/dL Urine Glucose (UA) Negative (NEGATIVE) mg/dL Assessment and Plan Assessment and Plan (1) CAMILLA (acute kidney injury): (2) Metabolic acidosis: (3) Colitis: Plan Acute kidney failure associated with hypotension. Likely caused by ongoing progressive dehydration and volume loss in the setting of patient taking lisinopril 40 mg daily. There is a possibility that patient had developed oliguric ATN CAT scan does not show any obstructive uropathy. Patient is unable to make urine. UA is pending. Nursing staff placed Maher catheter this morning and obtained a urine sample Potassium is 3.0. Bicarbonate yesterday was 9.5 and today is 15.2 I started patient on fluid with sodium bicarb at 200 an hour. This morning his potassium is 3.0. The bicarb is 15.2. BUN is up to 172 and creatinine is down to 8.04. Patient is not making urine. His lactic is 1.0. I requested urine sodium and creatinine level to calculate FENA I suspect that the patient may have developed ATN. I anticipate that patient may require hemodialysis. His phosphorus level is 10. I started him on PhosLo No overwhelming clinical evidence of uremic impact. I discussed this case with paper coating supervisor Dr. Singh and my colleague Dr. Manning Both accepted him to be transferred to [facility] for the possible need of hemodialysis and to manage his volume. Diarrhea for 4 weeks. CAT scan showed under distended colon versus colitis Lactic is 1.0. Less likely ischemic colitis. Could be viral and/or bacterial I requested stool culture I started him on ceftriaxone and Flagyl. Patient may need to be seen by GI while at [facility] Cachexia, frailty, muscle wasting, failure to thrive Moderate protein calorie malnutrition This will need to be addressed further at [facility] or in the outpatient setting Chronic, subacute medical conditions not listed above, abnormal labs and imaging, incidental findings seen on labs and or imaging. These would need to be addressed. Could be addressed later on or in the outpatient setting by PCP collaboration with other needed outpatient providers when time and condition are appropriate. I called his Veronica the second time. The first time she did not answer the phone. I gave her update on Andrea condition, status and treatment plan. I informed her about my recommendation to transfer him to [facility]. Veronica does not have any objection to that. She stated that she cannot visit him because she has liver cancer herself. Urinary Catheter Management Urinary Catheter Management Urethral: Cath placed during this visit: yes Urethral indwelling: No Insertion date: 07/07/25 Insertion time: 09:12
--- NOTE | 2025-07-07 10:06 | PM.DS1 ---
DS: Providers Provider Date of admission: 07/06/25 21:34 Primary care physician: Dony Rao DO Consults: 07/06/25 Consult to [facility] Routine Reason for consult:: Other Other reason:: pt is concerned for patient's ability to care for himself at home DS: Diagnosis Discharge Diagnosis (1) CAMILLA (acute kidney injury): (2) Metabolic acidosis: (3) Colitis: Plan As listed above, below and others that are not listed DS: Summary Hospital Course Hospital Course: Patient came in with diarrhea for 4 weeks. He was found to have the following: Acute kidney failure associated with hypotension. Likely caused by ongoing progressive dehydration and volume loss in the setting of patient taking lisinopril 40 mg daily. There is a possibility that patient had developed oliguric ATN CAT scan does not show any obstructive uropathy. Patient is unable to make urine. UA is pending. Nursing staff placed Maher catheter this morning and obtained a urine sample Potassium is 3.0. Bicarbonate yesterday was 9.5 and today is 15.2 I started patient on fluid with sodium bicarb at 200 an hour. This morning his potassium is 3.0. The bicarb is 15.2. BUN is up to 172 and creatinine is down to 8.04. Patient is not making urine. His lactic is 1.0. I requested urine sodium and creatinine level to calculate FENA. Urine sodium came back low at 12 suggestive of prerenal. I suspect that the patient may have developed ATN. I anticipate that patient may require hemodialysis. His phosphorus level is 10. I started him on PhosLo No overwhelming clinical evidence of uremic impact. I discussed this case with nanotechnician Dr. Singh and my colleague Dr. Manning Both accepted him to be transferred to [facility] for the possible need of hemodialysis and to manage his volume. Diarrhea for 4 weeks. CAT scan showed under distended colon versus colitis Lactic is 1.0. Less likely ischemic colitis. Could be viral and/or bacterial I requested stool culture I started him on ceftriaxone and Flagyl. Patient may need to be seen by GI while at [facility] Cachexia, frailty, muscle wasting, failure to thrive Moderate protein calorie malnutrition This will need to be addressed further at [facility] or in the outpatient setting Chronic, subacute medical conditions not listed above, abnormal labs and imaging, incidental findings seen on labs and or imaging. These would need to be addressed. Could be addressed later on or in the outpatient setting by PCP collaboration with other needed outpatient providers when time and condition are appropriate. I called his Veronica the second time. The first time she did not answer the phone. I gave her update on Andrea condition, status and treatment plan. I informed her about my recommendation to transfer him to [facility]. Veronica does not have any objection to that. She stated that she cannot visit him because she has liver cancer herself. Time Spent with Patient Time attestation: Total time spent providing and/or coordinating discharge services: Exam Constitutional Vital Signs, click to edit/add: Last Vital Signs Temp 98.2 F 07/07/25 08:37 Pulse 85 07/07/25 09:52 Resp 22 H 07/07/25 08:37 BP 86/49 L 07/07/25 08:37 Pulse Ox 95 07/07/25 08:37 O2 Del Method Room Air 07/07/25 08:37 DS: Data Data Completed and Pending Labs on day of discharge: Labs from last 24 hours 07/07/25 07/07/25 07/06/25 09:16 05:28 17:35 WBC 10.0 12.3 H RBC 3.48 L 4.47 L Hgb 12.0 L 15.4 Hct 33.1 L 43.4 MCV 95.1 H 97.1 H MCH 34.5 H 34.5 H MCHC 36.3 H 35.5 H RDW 12.8 13.2 Plt Count 242 426 MPV 9.0 L 10.5 Neut % (Auto) 85.7 H Lymph % (Auto) 5.2 L [place] % (Auto) 7.4 Eos % (Auto) 1.2 Baso % (Auto) 0.3 Neut # (Auto) 8.6 H Lymph # (Auto) 0.5 L [place] # (Auto) 0.7 Eos # (Auto) 0.1 Baso # (Auto) 0.0 Abs Immat Gran (auto) 0.02 Seg Neuts % (Manual) 90.0 H Lymphocytes % (Manual) 8.0 L Monocytes % (Manual) 2.0 Eosinophils % (Manual) 0.0 L Basophils % (Manual) 0.0 L Imm/Tot Granulo (auto) 0.2 Neutrophils # (Manual) 11.07 H Lymphocytes # (Manual) 0.98 L Monocytes # (Manual) 0.24 L Eosinophils # (Manual) 0.00 Basophils # (Manual) 0.00 PT 10.3 INR 0.97 Sodium 134 L 134 L Potassium 3.0 L 3.6 Chloride 101 100 Carbon Dioxide 15.2 L 9.5 L Anion Gap 20.8 28.1 BUN 172.0 H* 157.0 H* Creatinine 8.04 H* 8.28 H* Est GFR ( Amer) 8 L 8 L Est GFR (Non-Af Amer) 6 L 6 L BUN/Creatinine Ratio 21.4 19.0 Glucose 157 H 81 Lactate 1.0 Calcium 6.9 L 6.7 L Phosphorus 10.8 H* Magnesium 1.8 Total Bilirubin 0.2 AST 23 ALT 24 Alkaline Phosphatase 77 Troponin I High Sens 13.7 Total Protein 5.7 L Albumin 2.9 L Globulin 2.8 Albumin/Globulin Ratio 1.0 Urine Color Yellow Urine Clarity Clear Urine pH 5.0 Ur Specific [place] 1.020 Urine Protein 30 A Urine Glucose (UA) Negative Urine Ketones Trace A Urine Occult Blood Negative Urine Nitrite Negative Urine Bilirubin Small A Urine Urobilinogen 0.2 Ur Leukocyte Esterase Small A Ur Random Creatinine 306.85 H Ur Random Sodium 12 L Discharge Plan Discharge Disposition: [facility]
[2025-07-07 10:08] LABS: Cast Seen? SEEN #/LPF (NONE SEEN); Crystals Seen? None Seen #/HPF (None Seen); Urine Culture Indicated YES-FRMC
[2025-07-07] MEDS: MIDODRINE HCL 5 MG TABLET PO (10:36)
[2025-07-07] MEDS: POTASSIUM CHLORIDE 10 MEQ ER TABLET 20 MEQ PO (10:36)
[2025-07-07] MEDS: 0.9 % SODIUM CHLORIDE 500 ML IV (10:36)
--- NOTE | 2025-07-07 11:52 | PC.NURSE ---
report given to tadeo at [facility], all questions answered
== END 2025-07-07 11:41 | disposition short-term general hospital (02) | DRG 683 ==
LOC: ER 19:30 → MS 21:44
PROVIDERS: Emergency Medicine; Admitting Provider Internal Medicine; Emergency Provider Emergency Medicine; PCP Internal Medicine; Visit Provider Internal Medicine
DX: N17.0 Acute kidney failure with tubular necrosis (principal); D68.311 Acquired hemophilia; E44.0 Moderate protein-calorie malnutrition; E87.20 Acidosis, unspecified; R64 Cachexia; Z68.1 Body mass index [BMI] 19.9 or less, adult; R54 Age-related physical debility; K52.9 Noninfective gastroenteritis and colitis, unspecified; I95.9 Hypotension, unspecified; E86.0 Dehydration; T46.4X5A Adverse effect of angiotensin-converting-enzyme inhibitors, initial encounter; M62.50 Muscle wasting and atrophy, not elsewhere classified, unspecified site; R34 Anuria and oliguria; R62.7 Adult failure to thrive; I10 Essential (primary) hypertension; Z86.718 Personal history of other venous thrombosis and embolism; I73.9 Peripheral vascular disease, unspecified; F17.200 Nicotine dependence, unspecified, uncomplicated
CPT/HCPCS: 36415; 51702; 74176; 80048; 80053; 81001; 82570; 83605; 83735; 84100; 84300; 84484; 85007; 85025; 85027; 85610; 87045; 87046; 87086; 87088; 87186; 87427; 87493; 93005; 99285; 99406; J0696; J1644; J1836

== ENCOUNTER 2025-08-06 03:36 | Emergency (ER) | payer MEDICARE, OTHER, SELFPAY ==
--- OUTSIDE RECORDS SUMMARY | 2025-08-04 10:12 | XMS_ITS | Continuity of Care Document ---
Author Organization [facility] Address [address] [place] [address] Phone Care Team Providers Care Chief Construction Inspector Name Role Phone Dony Rao DO Primary Care Provider Dony Rao DO Attending Provider Sunil Calvillo MD Attending Provider Elizabeth ([facility])Maggie MD Attending Provider Vinnie Jimenez MD Admit Provider Pacheco Singh MD Other Provider Jc Ledesma MD Other Provider Ly, April L DO Attending Provider [phone] Ly, April L DO Other Provider [phone] Alessandro Guzman MD Other Provider Isha Azar RN Other Provider Unavailable Michael Mckeon DO Other Provider Susy Parks MD Other Provider Agnes Cardozo MD Other Provider Desire Mckeon APRN Other Provider Janelle Pedroza MD Other Provider Shantel Olea [facility]- Other Provider [phone] Crispin Alva MD Attending Provider Crispin Alva MD Other Provider Daniela Whitman MD Other Provider Terry Damian MD Other Provider Mae Rodriges APRN Other Provider West W[place] MD Other Provider [place] MD Admit Provider Carla Nelson RN Other Provider Unavailable Carol Hector RN Other Provider Unavailable Amada Flores RN Other Provider Unavailable Ambreen Hogan RN Other Provider Unavailable Joelle Lowe RN Other Provider Unavailable Ibeth Damian RN Other Provider Unavailable Sunil Calvillo MD Other Provider Sayda Sage DO Other Provider [phone] Phan Bass DO Other Provider Espinoza Peres MD Other Provider Rubi Weir MD Other Provider Marek Richardson DO Other Provider Unavailab Darryl Angeles MD Other Provider Unavailable Nessa Cole APRN Other Provider [phone] Ken Herrera MD Other Provider [phone] Katja Zimmerman MD Other Provider Unavailable Lnog Tan MD Other Provider [phone] Marek Strickland DO Other Provider Vinnie Jimenez MD Other Provider Bal Polk MD Other Provider Supriya Nelson THEATRE ARTS PROFESSOR-C Other Provider Narendra Ruiz APRN Other Provider Unavailable Ricky Ellington MD Other Provider Foreign Zaragoza MD Other Provider Ernestina Sr MD Other Provider Unavailable Jose Armando Greer DO Other Provider Jing Rodriguez PROJECT INTERNSHIP Other Provider Moody Nova DO Other Provider [phone] Papi Mcqueen MD Other Provider [phone] Sienna Mckeon PROJECT INTERNSHIP Other Provider [phone] Praveena Hand PROJECT INTERNSHIP Other Provider Patricia Dawkins MD Other Provider Unavailable Rahul Beth MD Other Provider Kyle Cruz DO Other Provider Dano Conklin MD Other Provider Bk Ortiz MD Other Provider Pat Hu PROJECT INTERNSHIP Other Provider Unavailable Ben Baptiste MD Other Provider Terry Zhou MD Other Provider [phone] Darryl Williamson MD Other Provider Cathy Somers PROJECT INTERNSHIP Other Provider Ned Pozo PROJECT INTERNSHIP Other Provider Kevin [place] MD Other Provider [phone] Leticia Martin RN Other Provider Unavailable Mae Rodriges PROJECT INTERNSHIP Attending Provider [place] MD Attending Provider Care Teams Patient Care Team Team Status: Active Member Role/Relationship Status Dates Dony Rao DO Primary Care Provider Active Visit Care Team Team Status: Inactive Member Role/Relationship Status Dates Dony Rao DO Primary Care Provider Active Start: July 06, 2025 End: July 06melinda Rao DOAttending ProviderActiveStart: July 06, 2025 End: July 06, 2025 Visit Care Team Team Status: Active Member Role/Relationship Status Dates Dony Rao DO Primary Care Provider Active Start: July 07, 2025 Sunil Calvillo , MDAttending ProviderActiveStart: July 07, 2025 Visit Care Team Team Status: Inactive Member Role/Relationship Status Dates Maggie Johnson ([facility]) MD Attending Provider Active Start: July 07, 2025 End: July 07, 2025 Visit Care Team Team Status: Active Member Role/Relationship Status Dates Dony Rao DO Primary Care Provider Active Start: July 07, 2025 Vinnie Jimenez MDAdmit ProviderActiveStart: July 07, 2025 Pacheco Singh MDOther ProviderActiveStart: July 07, 2025 Jc Ledesma MDOther ProviderActiveStart: July 07, 2025 April Guzman , DOAttending ProviderActiveStart: July 07, 2025 April Guzman , DOOther ProviderActiveStart: July 07, 2025 Michael Mckeon DOOther ProviderActiveStart: July 07, 2025 Susy Parks MDOther ProviderActiveStart: July 07, 2025 Agnes Cardozo MDOther ProviderActiveStart: July 07, 2025 Desire Mckeon APRNOther ProviderActiveStart: July 07, 2025 Janelle Pedroza MDOther ProviderActiveStart: July 07, 2025 STEPHANIE HowardP-BCOther ProviderActiveStart: July 07, 2025 Crispin Alva MDAttending ProviderActiveStart: July 07, 2025 Crispin Alva MDOther ProviderActiveStart: July 07, 2025 Alessandro Guzman MDOther ProviderActiveStart: July 07, 2025 Mae Rodriges APRNOther ProviderActiveStart: July 07, 2025 End: July 19puneet [place] MDOther ProviderActiveStart: July 07, 2025 End: July 19angela Peres MDAttending ProviderActiveStart: July 07, 2025 End: July 19, 2025 Visit Care Team Team Status: Active Member Role/Relationship Status Dates Dony Rao DO Primary Care Provider Active Start: July 14, 2025 Vinnie Jimenez MDAdmlainey ProviderActiveStart: July 14, 2025 Alessandro Guzman MDOther ProviderActiveStart: July 14, 2025 Isha Azar RNOther ProviderActiveStart: July 14, 2025 Isha Azar RNOther ProviderActiveStart: July 14, 2025 Michael Mckeon DOOther ProviderActiveStart: July 14, 2025 Susy Parks MDOther ProviderActiveStart: July 14, 2025 Agnes Cardozo MDOther ProviderActiveStart: July 14, 2025 Desire Mckeon APRNOther ProviderActiveStart: July 14, 2025 Janelle Pedroza MDOther ProviderActiveStart: July 14, 2025 Shantel Olea , SOFTWARE QUALITY TESTER-BCOther ProviderActiveStart: July 14, 2025 Crispin Alva MDAttending ProviderActiveStart: July 14, 2025 Crispin Alva MDOther ProviderActiveStart: July 14, 2025 April Guzman , DOOther ProviderActiveStart: July 14, 2025 Pacheco Singh MDOther ProviderActiveStart: July 14, 2025 Mae Rodriges APRNOther ProviderActiveStart: July 14, 2025 West [place] MDOther ProviderActiveStart: July 14, 2025 Espinoza Peres MDOther ProviderActiveStart: July 14, 2025 Jing Graham MDAttending ProviderActiveStart: July 14, 2025 Visit Care Team Team Status: Active Member Role/Relationship Status Dates Dony Rao DO Primary Care Provider Active Start: July 15, 2025 Terri Buckner ProviderActiveStart: July 15, 2025 Alessandro Guzman MDOther ProviderActiveStart: July 15, 2025 Isha Azar RNOther ProviderActiveStart: July 15, 2025 Isha Azar RNOther ProviderActiveStart: July 15, 2025 Michael Mckeon DOOther ProviderActiveStart: July 15, 2025 Susy Parks MDOther ProviderActiveStart: July 15, 2025 Agnes Cardozo MDOther ProviderActiveStart: July 15, 2025 Desire Mckeon , APRNOther ProviderActiveStart: July 15, 2025 Janelle Pedroza MDOther ProviderActiveStart: July 15, 2025 STEPHANIE HowardP-BCOther ProviderActiveStart: July 15, 2025 Crispin Alva MDAttending ProviderActiveStart: July 15, 2025 Crispin Alva MDOther ProviderActiveStart: July 15, 2025 April Guzman , DOOther ProviderActiveStart: July 15, 2025 Pacheco Singh MDOther ProviderActiveStart: July 15, 2025 Daniela Whitman MDOther ProviderActiveStart: July 15, 2025 Terry Damian MDOther ProviderActiveStart: July 15, 2025 Mae Rodriges , APRNOther ProviderActiveStart: July 15, 2025 West [place] MDOther ProviderActiveStart: July 15, 2025 Visit Care Team Team Status: Active Member Role/Relationship Status Dates Dony Rao DO Primary Care Provider Active Start: July 19, 2025 West [place] MDAdmit ProviderActiveStart: July 19, 2025 [place] MDOther ProviderActiveStart: July 19, 2025 Carla Nelson , JOSÉ MANUELOther ProviderActiveStart: July 19, 2025 Carol Hector , JOSÉ MANUELOther ProviderActiveStart: July 19, 2025 Amada Flores , JOSÉ MANUELOther ProviderActiveStart: July 19, 2025 Ambreen Hogan , JOSÉ MANUELOther ProviderActiveStart: July 19, 2025 Joelle Lowe , JOSÉ MANUELOther ProviderActiveStart: July 19, 2025 Ibeth Damian , JOSÉ MANUELOther ProviderActiveStart: July 19, 2025 Sunil Calvillo MDOther ProviderActiveStart: July 19, 2025 Sayda Sage DOOther ProviderActiveStart: July 19, 2025 Jc Ledesma MDOther ProviderActiveStart: July 19, 2025 Phan Bass DOOther ProviderActiveStart: July 19, 2025 Espinoza Peres MDOther ProviderActiveStart: July 19, 2025 Rubi Weir MDOther ProviderActiveStart: July 19, 2025 Marek Richardson , DOOther ProviderActiveStart: July 19, 2025 Darryl Covarrubias MDOther ProviderActiveStart: July 19, 2025 Nessa Cole , APRNOther ProviderActiveStart: July 19, 2025 Ken Herrera MDOther ProviderActiveStart: July 19, 2025 Katja Zimmerman MDOther ProviderActiveStart: July 19, 2025 Long Tan MDOther ProviderActiveStart: July 19, 2025 Marek Strickland , DOOther ProviderActiveStart: July 19, 2025 Vinnie Jimenez MDOther ProviderActiveStart: July 19, 2025 Bal Polk MDOther ProviderActiveStart: July 19, 2025 Supriya Nelson , THEATRE ARTS PROFESSOR-COther ProviderActiveStart: July 19, 2025 Narendra Ruiz , APRNOther ProviderActiveStart: July 19, 2025 Ricky Ellington MDOther ProviderActiveStart: July 19, 2025 Foreign Zaragoza MDOther ProviderActiveStart: July 19, 2025 Ernestina Sr MDOther ProviderActiveStart: July 19, 2025 Jose Armando Greer , DOOther ProviderActiveStart: July 19, 2025 Jing Rodriguez , APRNOther ProviderActiveStart: July 19, 2025 Moody Nova , DOOther ProviderActiveStart: July 19, 2025 Papi Mcqueen MDOther ProviderActiveStart: July 19, 2025 Sienna Mckeon , APRNOther ProviderActiveStart: July 19, 2025 Praveena Hand , APRNOther ProviderActiveStart: July 19, 2025 Patricia Dawkins MDOther ProviderActiveStart: July 19, 2025 Rahul Beth MDOther ProviderActiveStart: July 19, 2025 Kyle Cruz , DOOther ProviderActiveStart: July 19, 2025 Dano Conklin MDOther ProviderActiveStart: July 19, 2025 Bk Ortiz MDOther ProviderActiveStart: July 19, 2025 Pat Hu , APRNOther ProviderActiveStart: July 19, 2025 Ben Baptiste MDOther ProviderActiveStart: July 19, 2025 Terry Zhou MDOther ProviderActiveStart: July 19, 2025 Darryl Williamson MDOther ProviderActiveStart: July 19, 2025 Alessandro Guzman MDOther ProviderActiveStart: July 19, 2025 Cathy Somers , APRNOther ProviderActiveStart: July 19, 2025 Ned Pozo , APRNOther ProviderActiveStart: July 19, 2025 Kevin [place] MDOther ProviderActiveStart: July 19, 2025 Leticia Martin RNOther ProviderActiveStart: July 19, 2025 Mae Rodriges , APRNAttending ProviderActiveStart: July 19, 2025 Visit Care Team Team Status: Active Member Role/Relationship Status Dates Dony Rao , Primary Care Provider Active Start: July 26, 2025 Petra Mcallisterit ProviderActiveStart: July 26, 2025 West Wadd[place] MDAttending ProviderActiveStart: July 26, 2025 West W[place] MDOther ProviderActiveStart: July 26, 2025 Carla Nelson , JOSÉ MANUELOther ProviderActiveStart: July 26, 2025 Carol Hector , JOSÉ MANUELOther ProviderActiveStart: July 26, 2025 Amada Flores , JOSÉ MANUELOther ProviderActiveStart: July 26, 2025 Ambreen Hogan , JOSÉ MANUELOther ProviderActiveStart: July 26, 2025 Joelle Lowe , JOSÉ MANUELOther ProviderActiveStart: July 26, 2025 Ibeth Damian , JOSÉ MANUELOther ProviderActiveStart: July 26, 2025 Sunil Calvillo MDOther ProviderActiveStart: July 26, 2025 Sayda Sage DOOther ProviderActiveStart: July 26, 2025 Jc Ledesma MDOther ProviderActiveStart: July 26, 2025 Phan Bass DOOther ProviderActiveStart: July 26, 2025 Espinoza Peres MDOther ProviderActiveStart: July 26, 2025 Rubi Weir MDOther ProviderActiveStart: July 26, 2025 Marek Richardson , DOOther ProviderActiveStart: July 26, 2025 Darryl Covarrubias MDOther ProviderActiveStart: July 26, 2025 Nessa Cole , APRNOther ProviderActiveStart: July 26, 2025 Ken Herrera MDOther ProviderActiveStart: July 26, 2025 Katja Zimmerman MDOther ProviderActiveStart: July 26, 2025 Long Tan MDOther ProviderActiveStart: July 26, 2025 Marek Strickland , DOOther ProviderActiveStart: July 26, 2025 Vinnie Jimenez MDOther ProviderActiveStart: July 26, 2025 Bal Polk MDOther ProviderActiveStart: July 26, 2025 Supriya Nelson , THEATRE ARTS PROFESSOR-COther ProviderActiveStart: July 26, 2025 Narendra Ruiz , APRNOther ProviderActiveStart: July 26, 2025 Ricky Ellington MDOther ProviderActiveStart: July 26, 2025 Foreign Zaragoza MDOther ProviderActiveStart: July 26, 2025 Ernestina Sr MDOther ProviderActiveStart: July 26, 2025 Jose Armando Greer , DOOther ProviderActiveStart: July 26, 2025 Jing Rodriguez , APRNOther ProviderActiveStart: July 26, 2025 Moody Nova , DOOther ProviderActiveStart: July 26, 2025 Papi Mcqueen MDOther ProviderActiveStart: July 26, 2025 Sienna Mckeon , APRNOther ProviderActiveStart: July 26, 2025 Praveena Hand , APRNOther ProviderActiveStart: July 26, 2025 Patricia Dawkins MDOther ProviderActiveStart: July 26, 2025 Rahul Beth MDOther ProviderActiveStart: July 26, 2025 Kyle Cruz , DOOther ProviderActiveStart: July 26, 2025 Dano Conklin MDOther ProviderActiveStart: July 26, 2025 Bk Ortiz MDOther ProviderActiveStart: July 26, 2025 Pat Hu , APRNOther ProviderActiveStart: July 26, 2025 Ben Baptiste MDOther ProviderActiveStart: July 26, 2025 Terry Zhou MDOther ProviderActiveStart: July 26, 2025 Darryl Williamson MDOther ProviderActiveStart: July 26, 2025 Alessandro Guzman MDOther ProviderActiveStart: July 26, 2025 Cathy Somers , APRNOther ProviderActiveStart: July 26, 2025 Ned Pozo , APRNOther ProviderActiveStart: July 26, 2025 Kevin [place] MDOther ProviderActiveStart: July 26, 2025 Leticia Martin , JOSÉ MANUELOther ProviderActiveStart: July 26, 2025 Patient Care Team Team Status: Active Member Role/Relationship Status Dates Dony Rao , Primary Care Provider Active Start: August 02, 2025 Petra Mcallisterit ProviderActiveStart: August 02, 2025 [place] W[place] MDAttending ProviderActiveStart: August 02, 2025 West [place] MDOther ProviderActiveStart: August 02, 2025 Carla Nelson , RNOther ProviderActiveStart: August 02, 2025 Carol Hector , JOSÉ MANUELOther ProviderActiveStart: August 02, 2025 Amada Flores , JOSÉ MANUELOther ProviderActiveStart: August 02, 2025 Ambreen Hogan , RNOther ProviderActiveStart: August 02, 2025 Joelle Lowe , RNOther ProviderActiveStart: August 02, 2025 Ibeth Damian , JOSÉ MANUELOther ProviderActiveStart: August 02, 2025 Sunil Calvillo MDOther ProviderActiveStart: August 02, 2025 Sayda Sage DOOther ProviderActiveStart: August 02, 2025 Jc Ledesma MDOther ProviderActiveStart: August 02, 2025 Phan Bass DOOther ProviderActiveStart: August 02, 2025 Espinoza Peres MDOther ProviderActiveStart: August 02, 2025 Rubi Weir MDOther ProviderActiveStart: August 02, 2025 Marek Richardson DOOther ProviderActiveStart: August 02, 2025 Darryl Covarrubias MDOther ProviderActiveStart: August 02, 2025 Nessa Cole , APRNOther ProviderActiveStart: August 02, 2025 Ken Herrera MDOther ProviderActiveStart: August 02, 2025 Katja Zimmerman MDOther ProviderActiveStart: August 02, 2025 Long Tan MDOther ProviderActiveStart: August 02, 2025 Marek Strickland , DOOther ProviderActiveStart: August 02, 2025 Vinnie Jimenez MDOther ProviderActiveStart: August 02, 2025 Bal Polk MDOther ProviderActiveStart: August 02, 2025 Supriya Nelson , THEATRE ARTS PROFESSOR-COther ProviderActiveStart: August 02, 2025 Narendra Ruiz , APRNOther ProviderActiveStart: August 02, 2025 Ricky Ellington MDOther ProviderActiveStart: August 02, 2025 Foreign Zaragoza MDOther ProviderActiveStart: August 02, 2025 Ernestina Sr MDOther ProviderActiveStart: August 02, 2025 Jose Armando Greer , DOOther ProviderActiveStart: August 02, 2025 Jing Rodriguez , APRNOther ProviderActiveStart: August 02, 2025 Moody Nova , DOOther ProviderActiveStart: August 02, 2025 Papi Mcqueen MDOther ProviderActiveStart: August 02, 2025 Sienna Mckeon , APRNOther ProviderActiveStart: August 02, 2025 Praveena Hand , APRNOther ProviderActiveStart: August 02, 2025 Patricia Dawkins MDOther ProviderActiveStart: August 02, 2025 Rahul Beth MDOther ProviderActiveStart: August 02, 2025 Kyle Cruz , DOOther ProviderActiveStart: August 02, 2025 Dano Conklin MDOther ProviderActiveStart: August 02, 2025 Bk Ortiz MDOther ProviderActiveStart: August 02, 2025 Pat uH , APRNOther ProviderActiveStart: August 02, 2025 Ben Baptiste MDOther ProviderActiveStart: August 02, 2025 Terry Zhou MDOther ProviderActiveStart: August 02, 2025 Darryl Williamson MDOther ProviderActiveStart: August 02, 2025 Alessandro Guzman MDOther ProviderActiveStart: August 02, 2025 Cathy Somers APRNOther ProviderActiveStart: August 02, 2025 Ned Pozo APRNOther ProviderActiveStart: August 02, 2025 Kevin [place] MDOther ProviderActiveStart: August 02, 2025 Leticia Martin RNOther ProviderActiveStart: August 02, 2025 Chief Complaint and Reason for Visit Chief Complaint Admit Date diarrhea July 06, 2025 3 :39pm Unknown July 07, 2025 9 :16am CAMILLA July 07, 2025 2 :00pm CAMILLA July 14, 2025 12:00am CAMILLA July 15, 2025 12:00am Sick Sinus Syndrome s/p Pacemaker Novemb er 2024 4:59pm Sick Sinus Syndrome s/p Pacemaker Novemb er 2024 12:00am Sick Sinus Syndrome s/p Pacemaker Decemb er 2024 12:00am Reason for Visit Admit Date 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, 2025 3:39pm ASHD (arteriosclerotic heart disease) No vember 2024 3:39pm Decreased appetite July 06, 2025 3 :39pm Mucopurulent chronic bronchitis July 06, 2025 3:39pm Pulmonary nodule July 06, 2025 3 :39pm Diarrhea July 06, 2025 3 :39pm Essential (primary) hypertension Novembe r 2024 3:39pm Nicotine dependence July 06, 2025 3 :39pm Prerenal azotemia July 06, 2025 3 :39pm CAMILLA (acute kidney injury) July 07, 2025 2:00pm Anemia July 07, 2025 2 :00pm Asystole July 07, 2025 2 :00pm Blood in stool July 07, 2025 2 :00pm Diarrhea July 07, 2025 2 :00pm Elevated cholesterol July 07, 2025 2:00pm Essential (primary) hypertension Novembe r 2024 2:00pm Impaired mobility and activities of azeem y living July 07, 2025 2:00pm Nicotine dependence July 07, 2025 2 :00pm Paroxysmal atrial fibrillation with RVR July 07, 2025 2:00pm Prerenal azotemia July 07, 2025 2 :00pm Severe protein-calorie malnutrition Moon hidalgo 2024 2:00pm Sick sinus syndrome July 07, 2025 2 :00pm Weight loss July 07, 2025 2 :00pm COPD (chronic obstructive pulmonary dise ase) July 19, 2025 4:59pm Anemia July 19, 2025 4:59pm Diarrhea July 19, 2025 4:59pm Essential (primary) hypertension Novembe r 2024 4:59pm Impaired mobility and activities of azeem y living July 19, 2025 4:59pm Nicotine dependence July 19, 2025 4:59pm Paroxysmal atrial fibrillation with RVR July 19, 2025 4:59pm Sick sinus syndrome July 19, 2025 4:59pm Weight loss July 19, 2025 4:59pm Reason for Referral Type Reason(s) Provider Provider Contact Information P sayra Address Start Date Please arrange a follow-up appointment once discharged from rehab.08/15/25 3p and 10/26/25 [facility] [address] to schedule follow up appointment with PCP after dischargeFollow up with rehab physician as neededPaulie Nina MD FACC Email: [email or web address] Phone: [phone] [address] [address]Lxrrve arrange a follow-up appointment once discharged from rehab.Mj Zheng Phone: [phone] [facility] [address]Amm office will call with your pathology results. Please call if you have any questions.Mj Resendez Phone: [phone] [facility], [address] [facility] [id number]/15/25 3p and 10/26/[address] [place], [place] [address]Paulie Montoya MD FAC Email: [email or web address] Phone: [phone] [address] [address]Muaq to schedule follow up appointment with PCP after discharge Mj Zheng Phone: [phone] [facility] [address]Sgfqov up with rehab physician as neededFarooq Sanchez MDWork Phone: [phone] [facility], [address] [facility] [address]Wdq office will call with your pathology results. Call if you have any questions.Mj Resendez Phone: [phone] [facility], [address] [facility] [address] Allergies, Adverse Reactions, Alerts Allergen Type Severity Reaction Last Updated Verified Status No Known Allergies Allergy Unknown July 19, 2025 6:07pmYesActive Social History Smoking Status Status Start Date End Date Date of Observa tion Smokes tobacco daily (finding) July 21, 2025 4:13pm Observation Status Observation Response Date of Response Legal Sex Male (finding) Sex Assigned At BirthMaleSeptember 1939 Social History Assessments Assessment Value Date Recorded SDOH Follow up July 19, 2025 1:52pmQuestionAnswerDate RecordedHas the SDOH screening changed since admission?[facility] 2024 1:52pm Assessment Value Date Recorded SDOH Follow up July 15, 2025 7:16amQuestionAnswerDate RecordedHas the SDOH screening changed since admission?[facility] 2024 7:16am Assessment Value Date Recorded SDOH Follow up July 29, 2025 12:05pmQuestionAnswerDate RecordedHas the SDOH screening changed since admission?[facility] 2024 12:05pm Problems Active Problems Problem Diagnosis/Recorded Date Onset Date Status C ments Medicare annual wellness vis it, subsequent January 17, 2025 8:29pm Unknown Active Mucopurulent chronic bronchitisApril 2023 1:17pmUnknownActiveAnxiety August 04, 2025 10:28amUnknownActivePulmonary noduleApril 2023 1:17pm UnknownActiveCT: 9mm nodule EMMIE - 06/2023,CT: unchanged - 12/2023,COPD (chronic obstructive pulmonary disease)July 20, 2025 11:23amUnknownActiveDecreased appetiteNov2024 9:29pmUnknownActiveLumbar spondylosisApril 2023 1:17pmUnknownActiveASHD (arteriosclerotic heart disease)December 11, 2023 1:17pm UnknownActiveAcquired hemophilia AApril 2023 1:17pmUnknownActive Inactive/Resolved Problems Problem Diagnosis/Recorded Date Onset Date Status C omments CAMILLA (acute kidney injury) July 07, 2025 3:42pm Unknow n Resolved Prerenal azotemiaNovember 2024 9:29pmUnknownResolvedNicotine dependence December 12, 2023 1:18pmUnknownResolvedImpaired mobility and activities of daily livingNovember 2024 1:31pmUnknownResolvedSevere protein-calorie malnutritionNovember 2024 12:05pmUnknownResolvedElevated cholesterolApril 2023 1:17pmUnknownResolvedAnemiaNovember 2024 11:20amUnknownResolved AsystoleNovember 2024 11:28amUnknownResolvedSick sinus syndromeNovember 2024 11:28amUnknownResolvedDiarrheaNovember 2024 9:28pmUnknown ResolvedWeight lossNovember 2024 6:32pmUnknownResolvedEssential (primary) hypertensionApril 2023 1:17pmUnknownResolvedParoxysmal atrial fibrillation with RVRNovember 2024 11:28amUnknownResolvedBlood in stoolNovember 2024 6:32pmUnknownResolved Medications Medication Status Dose Units Route Directions Qty Days Refills S tart Date Stop Date End Date Reason(s) Instructions Adherence Lisinopril 40 mg tablet Discontinued 0 .ROUTE.[id number] 2023 6:34amJuly 2024 6:42amTAKE 1 TABLET BY MOUTH EVERY DAYMetoprolol Succinate 25 mg tablet extended release 24 hr Discontinued0.ROUTE.ZDASROU318Mba 2023 6:34amJuly 2024 6:42amTAKE 1 TABLET BY MOUTH EVERY DAYMupirocin 2 % dlfdkvkvNrqfhzlpsgne6MCTXQNAYABDIRQlxpc [id number] 2024 11:00pmNovember 2024 5:02pmMetoprolol Succinate 25 mg tablet extended release 24 hrActive0.ROUTE.[id number] 2024 6:42amTAKE 1 TABLET BY MOUTH EVERY DAYUnknownLisinopril 40 mg tabletDiscontinued 0.ROUTE.UPTXVEJ589Jcku 2024 6:42amNovember 2024 2:25pmOn Hold: On hold per Primary Care Physician TAKE 1 TABLET BY MOUTH EVERY DAYBudesonide 3 mg capsule,delayed,extend.release Levfeguaghos9BOZDWetwi as needed for [id number] 20th, 2025 12:00am August 04, 2025 10:29amTake 3 tablets daily for 30 days, take 2 tablets daily for 30 days, take 1 tablet daily for 30 days.Loperamide 2 mg NkpwzvhYboede3LIWZ Q2H as needed for Ikcdvqza97Xjrupptm2024 12:00amUnknownAmiodarone 200 mg UynsgdDaiqki787WRKYPrcnr xpkqb16705PldnbdpiJuly 19, 2025 12:00amUnknownLisinopril 40 mg VhgsnqUhuuju21RRRPQohnm21Vyzcolar 18th, 2025 12:00amOn Hold: HOLD until f/u with PCPUnknownApixaban (Eliquis) 5 mg ualruzDvoivj1XOHUEhedq [id number] July 19, 2025 12:00amUnknownFurosemide 40 mg BcaokhRjttsg10JQOUQwybu at [id number] 04, 2025 12:00amUnknownIpratropium-Albuterol 0.5 mg-3 mg(2.5 mg base)/3 mL Solution For LxewpqooexswHsesxw1BAAUBPQSYRRYTjhc times daily - Widbszdnvnc25Jhphpsny 4th, 2025 12:00amUnknownLidocaine (Lidocaine Pain Relief) 4 % Adhesive Patch,KruvbzohfGnxnce0DCLUYQYHXAFGGwese20Kvnnfbgf 4th, 2025 12:00am UnknownAlbuterol Sulfate 2.5 mg /3 mL (0.083 %) Solution For NebulizationActive 2.4URCKAMKTAQKHL5R as needed for shortness of bxhzeu29Hccjonlr2024 12:00am UnknownAscorbic Acid (Vitamin C) (Vitamin C) 500 mg IixqwwWuwxtu704ZBCNHprds54 August 04, 2025 12:00amUnknownDiphenhydramine Hcl 25 mg BuxlicxArutaa15SYPJ Q6H as needed for Cfaqkcv30Vywdamrm2024 12:00amUnknownLorazepam 1 mg YzlyodHubkdw5DUDNLwlpf times daily as needed for Cwherkc0793Cqsbctkn 4th, 2025 12:00amAnxiety Anxiety disorder, unspecifiedUnknownFerrous Sulfate 324 mg (65 mg iron) Tablet,Delayed Release (Dr/Ec)Jnxerw969DTNLNthga72Xdmcwxoz 4th, 2025 12:00am UnknownDiclofenac Sodium 1 % DfuWctfar1SKGNGBEUZWicxf times gejxf55Bfckposp2024 12:00amUnknownMelatonin 5 mg OtyncbXmgewy8RWTESgobk at bedtime as needed for llfid16Crqxewcj2024 12:00amUnknownLanolin Ulrqjjh-Hr-W.Pet-Eek (Minerin Creme) EeqwfHsmyts0DQIQSRMXZGLQWPjncq14Mptqyozn 4th, 2025 12:00am UnknownBiotin 10,000 mcg capsuleDiscontinuedMCGPOApril 2023 11:00pm July 10, 2025 2:59pmLisinopril 40 mg nnncohTxzmdzmoaltt46XQGAMobztRcxwt 2023 11:00pmMay 2023 6:34amMetoprolol Succinate 25 mg tablet extended release 24 ziRqismpcfjxbh04BGCHQuxhfFfadg 2023 11:00pmMay 2023 6:34amEsomeprazole Magnesium (Nexium) 20 mg capsule,delayed release(DR/EC) Illzrkycdxtx05DZZCVotwxGpbzy 2023 11:00pmApril 2023 12:57pmAlbuterol Sulfate 90 mcg/actuation HFA aerosol voweiyuExfkcsvbxtak1TXWYIWRZOUVMLJOzyju 4 hours as needed for shortness of breath or wheezingApr2023 11:00pm July 10, 2025 3:00pmNiacinamide 500 mg ijoxvoQqsdpzjuxrpr482HUKLTjqphWvrfr 2023 11:00pmNov2024 3:00pmPrednisone 10 mg qvwiqpAzekdxpwrlut01 MGPODailyApril 10th, 2024 11:00pmApril 2023 12:58pmPsyllium Husk 0.4 gram capsuleDiscontinued0.4GMPODailyApril 2023 11:00pmApril 2023 12:58pm Sennosides 8.6 mg zqscgfCieuilrdujuz31.2MGPODaily at bedtime as neededApril 2023 11:00pmApril 2023 12:58pmAcetaminophen (Tylenol Extra Strength) 500 mg kkzdelCgaqxs6800UHHOZ4AQuvyx 2023 11:00pmChronic neck and back pain Cervicalgia Dorsalgia, unspecified Other chronic pain painUnknownAscorbic Acid (Vitamin C) 500 mg tablet,egykbzkzFmepezfjdxrh590TBQH DailyApril 2023 11:00pmNovember 2024 3:00pm Immunizations Immunization Event Date Not Given Reason Dose Number Lap Regulator Lot Number Reason(s) Given Vaccine Information Statement (VIS) Detail Administration Location influenza, unspecified formulation August 02, 2020 influenza, unspecified formulationOctober 2020influenza, unspecified formulationOctober neumococcal Conjugate Vaccine, 20 valentJuly 2022 Medical Equipment Device Date Implanted Device Details Dual-chamber implantable pac emaker, rate-responsive July 13, 2025 DELIA: [id number] Issuing Agency: [facility] Device Id: [id number] Expiration Date: 2026-08-31 Serial Number: [id number]/interventricular septal pacing leadNov2024UDI: [id number] Issuing Agency: [facility] Device Id: [id number] Expiration Date: 2028-05-01 Serial Number: [id number]/interventricular septal pacing leadNov2024UDI: [id number] Issuing Agency: [facility] Device Id: [id number] Expiration Date: 2027-11-30 Serial Number: [id number] Procedures Procedure Date Performed Status Urine Culture July 07, 2025 completed Relevant Diagnostic Tests and/or Laboratory Data Laboratory Results Test Collection Date/Time Result Date/Time Result Interpretation Reference Range Result Comment Performing Site Troponin I High Sensitivity July 06, 2025 5:35pm July 06, 2025 5:35pm 13.7 pg/mL 4.0-76.1CUT-OFF POINTS HAVE BEEN ESTABLISHED BASED ON THE FOURTHUNIVERSAL DEFINITION OF MYOCARDIAL INFARCTION. THE UPPERREFERENCE LIMIT (URL) OF TROPONIN, DEFINED THE 99THPERCENTILE OF cTnI DISTRIBUTION IN A REFERENCE POPULATION,HAS BEEN CONFIRMED THE DECISION THRESHOLD FOR MIDIAGNOSIS.99TH PERCENTILE = 76.2 PG/MLNOTE: HIGH-SENSITIVITY TROPONIN ASSAY IS NOT INTENDED TO BEUSED IN ISOLATION BUT SHOULD BE INTERPRETED IN CONJUNCTIONWITH OTHER DIAGNOSTIC AND CLINICAL INFORMATION.Anion GapJuly 06, 2025 5:35pmNov2024 5:35pm 28.1Magnesium LevelJuly 06, 2025 5:35pmJuly 06, 2025 5:35pm1.8 mg/dL 1.8-2.4Prothromb Time International RatioNove2024 5:35pmNov2024 5:35pm0.97DESIRED INR:2.0-3.0 CONDITIONS NOT LISTED BELOW2.5-3.5 FOR PROSTHETIC HEART VALVE REPLACEMENT2.5-3.5 RECURRENT THROMBOSISLactic Acid Level July 06, 2025 5:35pmNov2024 5:35pm1.0 mmol/L0.4-2.0Absolute Basophils (Manual)July 06, 2025 5:35pmNov2024 5:35pm0.00 10 3/uL 0.00-0.10HematocritJuly 06, 2025 5:35pm43.4 %42.0-54.0Phosphorus Level July 07, 2025 5:28amNove2024 5:28am10.8 mg/dLAbove upper panic limits2.6-4.7RESULTS CALLED TO GAMALIEL SCHERER RN @BY Margaux Christian at 0634Anion 2024 5:28amNovemb2024 5:28am20.8Basophils # (Auto)July 07, 2025 5:28amNovember 2024 5:28am0.0 10 3/uL0.0-0.1Urine Culture ReflexedJuly 07, 2025 9:16amNovemb2024 9:16amYES-FRMCUrine Microscopic ReviewJuly 07, 2025 9:16amYESUrine Random CreatinineJuly 07, 2025 9:16amNovemb2024 9:51uj318.85 mg/dLAbove high normal 20.00-300.00Urine Random SodiumJuly 07, 2025 9:16amNove2024 9:16am12 mmol/LBelow low cswyhc04-89Bxrzmxz/Globulin RatioNove2024 5:35pmJuly 06, 2025 5:35pm1.0Prothrombin TimeJuly 06, 2025 5:35pm July 06, 2025 5:35pm10.3 sec9.0-11.6Basophils %July 06, 2025 5:35pm July 06, 2025 5:35pm0.0 %Below low normal0.2-2.0HemoglobinJuly 06, 2025 5:35pm15.4 g/dL14.0-18.0BUN/Creatinine RatioNove2024 5:28am July 07, 2025 5:28am21.4Basophils (%) (Auto)July 07, 2025 5:28am July 07, 2025 5:28am0.3 %0.2-2.0Urine Other CastsJuly 07, 2025 9:16am July 07, 2025 9:16amSEEN #/LPFAbnormal (applies to non-numeric results)NONE SEENUrine BilirubinJuly 07, 2025 9:16amSMALLAbnormal (applies to non- numeric results)NEGATIVEAlbuminJuly 06, 2025 5:35pmJuly 06, 2025 5:35pm2.9 g/dLBelow low normal3.4-5.0Eosinophils # (Manual)July 06, 2025 5:35pmJuly 06, 2025 5:35pm0.00 10 3/uL0.00-0.70Mean Corpuscular Hemoglobin July 06, 2025 5:35pm34.5 pgAbove high unqbdp40.9-34.0Blood Urea Nitrogen July 07, 2025 5:28amNovember 2024 5:09qt908.0 mg/dLAbove upper panic limits7.0-18.0RESULTS CALLED TO GAMALIEL SCHERER RN @BY Margaux Christian at 0634Eosinophils # (Auto)July 07, 2025 5:28amNovember 2024 5:28am0.1 10 3/uL0.0-0.7Urine Other CrystalsNov2024 9:16amNovember 2024 9:16amNone Seen #/HPFNone SeenUrine Occult BloodNov2024 9:16am NEGATIVENEGATIVEAlkaline PhosphataseJuly 06, 2025 5:35pmNov2024 5:35pm77 U/I29-686Gamvikhqloq %July 06, 2025 5:35pmNov2024 5:35pm0.0 %Below low normal0.9-7.0Mean Corpuscular Hemoglobin ConcentNov2024 5:35pm35.5 g/dLAbove high jzoddf86.9-35.2Calcium LevelNov2024 5:28amNovemb2024 5:28am6.9 mg/dLBelow low normal8.5-10.1Eosinophils (%) (Auto)July 07, 2025 5:28amNovember 2024 5:28am1.2 %0.9-7.0Urine BacteriaNov2024 9:16amNovemb2024 9:16amTRACE #/HPFAbnormal (applies to non-numeric results)NONE SEENUrine AppearanceJuly 07, 2025 9:16amCLEARCLEARAlanine Aminotransferase (ALT/SGPT)July 06, 2025 5:35pm July 06, 2025 5:35pm24 U/L38-45Mwbsmqtpupj # (Manual)July 06, 2025 5:35pmNov2024 5:35pm0.98 10 3/uLBelow low normal1.20-3.80Mean Corpuscular VolumeJuly 06, 2025 5:35pm97.1 fLAbove high wcullr32.0-94.0 Chloride LevelNovember 2024 5:28amNovember 2024 5:89us191 mmol/L98-107 HematocritNovember 2024 5:28amNovember 2024 5:28am33.1 %Below low chjuui77.0-54.0Urine Hyaline CastsNovember 2024 9:16amNovember 2024 9:16amFEWUrine ColorNovember 2024 9:16amYELLOWYELLOWAspartate Amino Transf (AST/SGOT)July 06, 2025 5:35pmNov2024 5:35pm23 U/L15-37 Lymphocytes %July 06, 2025 5:35pmNov2024 5:35pm8.0 %Below low laebzd07.5-60.0Mean Platelet VolumeNov2024 5:35pm10.5 fL9.5-13.5 Carbon Dioxide LevelNovember 2024 5:28amNovember 2024 5:28am15.2 mmol/LBelow low ljsfym21.0-32.0HemoglobinNov2024 5:28amNovember 2024 5:28am12.0 g/dLBelow low oorljc97.0-18.0Urine MucusNov2024 9:16amNovember 2024 9:16amNONE SEENNONE SEENUrine Glucose (UA)July 07, 2025 9:16amNEGATIVE mg/dLNEGATIVEBUN/Creatinine RatioNove2024 5:35pm July 06, 2025 5:35pm19.0Monocytes # (Manual)July 06, 2025 5:35pm July 06, 2025 5:35pm0.24 10 3/uLBelow low normal0.30-0.80Platelet Count July 06, 2025 5:76tz864 10 3/mH052-092WknnkcvkreOkkkgfah 6th, 2025 5:28am July 07, 2025 5:28am8.04 mg/dLAbove upper panic limits0.70-1.30RESULTS CALLED TO GAMALIEL SCHERER RN @BY Margaux Christian at 0634Immature Granulocyte # (Auto)July 07, 2025 5:28amNovember 2024 5:28am0.02 10 3/uL0.00-0.03 Urine RBCNov2024 9:16amNovember 2024 9:34se6-4 #/HPF0-2Urine KetonesNov2024 9:16amTRACE mg/dLAbnormal (applies to non-numeric results)NEGATIVEBlood Urea NitrogenNov2024 5:35pmNov2024 5:72bw900.0 mg/dLAbove upper panic limits7.0-18.0RESULTS CALLED TO DONNA DIEGO Monocytes %July 06, 2025 5:35pmNov2024 5:35pm2.0 %1.7-12.0Red Blood CountNov2024 5:35pm4.47 10 6/uLBelow low normal4.70-6.10 Estimated GFR ()July 07, 2025 5:28amNovember 2024 5:92iv0Ddngd low normal>=60 mL/min/1.73m 2Immature Granulocyte % (Auto)July 07, 2025 5:28amNovemb2024 5:28am0.2 %0.0-0.5Urine Squamous Epithelial CellsNov2024 9:16amNovemb2024 9:16amFEW #/LPFAbnormal (applies to non-numeric results)NONE/RAREUrine Leukocyte EsteraseNov2024 9:16amSMALLAbnormal (applies to non-numeric results)NEGATIVECalcium Level July 06, 2025 5:35pmNov2024 5:35pm6.7 mg/dLBelow low normal 8.5-10.1Segmented Neutrophils # (Manual)July 06, 2025 5:35pmNov2024 5:35pm11.07 10 3/uLAbove high normal1.4-6.5Red Cell Distribution Width July 06, 2025 5:35pm13.2 %11.0-15.0Estimated GFR (Non- July 07, 2025 5:28amNovember 5 5:50rp4Wqlev low normal>=60 mL/min/1.73m 2Lymphocytes # (Auto)July 07, 2025 5:28amNove2024 5:28am0.5 10 3/uLBelow low normal1.2-3.8Urine WBCNov2024 9:16am July 07, 2025 9:36or2-63 #/HPFAbnormal (applies to non-numeric results)NONE SEENUrine NitriteJuly 07, 2025 9:16amNEGATIVENEGATIVEChloride LevelNov2024 5:35pmNov2024 5:83kp214 mmol/N71-888Nxrvwlopt Neutrophils July 06, 2025 5:35pmJuly 06, 2025 5:35pm90.0Above high cvddno08.0-75.0 Corrected White Blood CountNov2024 5:35pm12.3 10 3/uLAbove high normal4.0-11.0Glucose LevelNov2024 5:28amNove2024 5:77yb242 mg/dLAbove high isajhi27-805Wzevxprvolo (%) (Auto)July 07, 2025 5:28am July 07, 2025 5:28am5.2 %Below low yggwlz93.5-60.0Urine pHJuly 07, 2025 9:16am5.05.0-9.0Carbon Dioxide LevelNov2024 5:35pmJuly 06, 2025 5:35pm9.5 mmol/LBelow low ezmtgb28.0-32.0Potassium LevelNov2024 5:28amNovemb2024 5:28am3.0 mmol/LBelow low normal3.5-5.1Mean Corpuscular HemoglobinJuly 07, 2025 5:28amNove2024 5:28am34.5 pgAbove high otipdc21.9-34.0Urine ProteinJuly 07, 2025 9:16am30 mg/dLAbnormal (applies to non-numeric results)NEG/TRACECreatinineNov2024 5:35pmNov2024 5:35pm8.28 mg/dLAbove upper panic limits0.70-1.30RESULTS CALLED TO DONNA HYDEodium LevelNov2024 5:28amNovember 2024 5:30ff231 mmol/L Below low qmwejr313-980Ysus Corpuscular Hemoglobin ConcentNov2024 5:28amNovemb2024 5:28am36.3 g/dLAbove high uibdgy56.9-35.2Urine Specific GravityNov2024 9:16am1.0201.005-1.025Estimated GFR () July 06, 2025 5:35pmNov2024 5:76bj7Qpvfk low normal>=60 mL/min/1.73m 2Mean Corpuscular VolumeNov2024 5:28amNove2024 5:28am95.1 fLAbove high zfajyf03.0-94.0Urine UrobilinogenNov2024 9:16am0.2 EU/dL0.2-1.0Estimated GFR (Non- AmericanNov2024 5:35pmNov2024 5:75gj9Nbpzr low normal>=60 mL/min/1.73m 2Monocytes # (Auto)July 07, 2025 5:28amNovemb2024 5:28am0.7 10 3/uL0.3-0.8 GlobulinNov2024 5:35pmNov2024 5:35pm2.8 g/dLMonocytes (%) (Auto)July 07, 2025 5:28amNovemb2024 5:28am7.4 %1.7-12.0Glucose LevelNov2024 5:35pmNov2024 5:35pm81 mg/gX86-792Qgig Platelet VolumeNov2024 5:28amNovemb2024 5:28am9.0 fLBelow low normal9.5-13.5Potassium LevelNov2024 5:35pmNov2024 5:35pm 3.6 mmol/L3.5-5.1Neutrophils # (Auto)July 07, 2025 5:28amNovemb2024 5:28am8.6 10 3/uLAbove high normal1.4-6.5Sodium LevelJuly 06, 2025 5:35pm July 06, 2025 5:35pp679 mmol/LBelow low -516Tuwebazwtxh (%) (Auto) July 07, 2025 5:28amNovemb2024 5:28am85.7 %Above high normal 43.0-75.0Total BilirubinNov2024 5:35pmJuly 06, 2025 5:35pm0.2 mg/dL0.2-1.0Platelet CountNov2024 5:28amNovemb2024 5:35ut473 10 3/nS567-784Ghqfp ProteinJuly 06, 2025 5:35pmJuly 06, 2025 5:35pm5.7 g/dLBelow low normal6.4-8.2Red Blood CountNov2024 5:28amNove2024 5:28am3.48 10 6/uLBelow low normal4.70-6.10Red Cell Distribution Width July 07, 2025 5:28amNove2024 5:28am12.8 %11.0-15.0Corrected White Blood CountJuly 07, 2025 5:28amNove2024 5:28am10.0 10 3/uL 4.0-11.0 Microbiology Results Procedure Source Result Collection Date/Time Result Date/Time Result Comment Performing Site Urine Culture Urine, Not Otherwise Specified Staphylococcus aureus July 07, 2025 9:16am July 11, 2025 10:11am [facility] [id number] [address] [address]Dnqhi, Not Otherwise SpecifiedStaphylococcus aureus#2Nove2024 9:16amNove2024 10:11am[facility] [id number] [address] [facility] [address] Vital Signs Vital Reading Result Reference Range Collection Date/Time Height 68 [in_i] July 06, 2025 3:24ufBrjnkv29.96 kgNovember 5th, 2025 3:51pmHeart Rate50 /hvi72-547PxrhizfeJuly 06, 2025 3:51pmRespiratory rate12 /tae49-73XcvrskxzJuly 06, 2025 3:51pmBP Xkepgcjl69 mm[Hg]100-140July 06, 2025 3:51pmBP Xmumutfpt48 mm[Hg]60-100July 06, 2025 3:51pmBMI (Body Mass Index)18.7 kg/j1UijgkapwJuly 06, 2025 3:18ydWonrtl97 [in_i]July 19, 2025 12:93ghKxwylc03.90 [facility]20[facility] 6:00amBody Sjczuyeytdf06.5 [degF]97.6-99.0[facility]2024 3:50pm Heart Rate62 /dxe06-255XnldwkvhJuly 19, 2025 3:50pmRespiratory rate22 /uvp88-98 July 19, 2025 3:50pmOxygen saturation by Pulse utanejkh59 %95-100July 19, 2025 3:50pmBP Oqtkhqvj414 mm[Hg]100-140July 19, 2025 3:50pmBP Evmgiavrd00 mm[Hg]60-100July 19, 2025 3:50pmInhaled oxygen flow rate2 L/minE[facility]2024 4:73zjXjwllv21 [in_i]August 02, 2025 12:29pmWeight 63.20 kgE[facility]2024 6:13amBody Jdhhmszcztq76.5 [degF]97.6-99.0ce2024 5:27amHeart Rate61 /cdx82-550Hbsvkjea 4th, 2025 1:00pmRespiratory rate 20 /uan19-70Nkeqmamh 4th, 2025 1:00pmOxygen saturation by Pulse zhnhhrel55 % 95-100ce2024 5:27amBP Tztpuhbd114 mm[Hg]100-140Decemb2024 5:27amBP Uytcoywoe67 mm[Hg]60-100Decemb2024 5:27amInhaled oxygen flow rate2 L/[facility]Das[facility]2024 8:05am Advance Directives Advance Directive Response Recorded Date/ Time Advance Directives No September 24, 2023 3:00pm Insurance Providers Guarantor Andrea Costellojefry Address [address] [address]Snlrwcm Info.Home Phone: Coverage Status Update:2025 Payer Group Member ID Coverage Type Subscriber Relationship to Subscriber Effective Date Expiration Date Medicare [id number] R Covella Id: [id number] [address] [address] Home Phone: selfMedicare [employer] [id number] R Covella Id: [id number] [address] [address] Home Phone: selfMedicare Rehab-IP Part A [id number] R Covella Id: [id number] [address] [address] Home Phone: self Encounters Encounter Location(s) Arrival/Admit Date Discharge/Departure Date Discharge/Departure Disposition Provider(s) Departed Physician/ Provider [facility] Visit [facility] July 06, 2025 3:39pm July 06, 2025 4:25pm Discharged to home care or self care (routine discharge) Dony Rao DO Non-patient / Non-visit -[facility]2024 5:28am ORI Gaviriaeparted [facility]am[facility] 2024 9:17amDischarged to home care or self care (routine discharge)[facility] / Acu-wtbnc-[facility]November 2024 2:00pmShi Resendez-patient / [facility] 12:00Gray Byrne- patient / Lif-wsawn-[facility]Nov[facility]24 12:00Gray Byrne-patient / Njf-rewbi-[facility]dmlljbua [facility]November 2024 4:59pmMae Theodorecolumba JINGrico-patient / Fbi-oqnfg-[facility] 2024 12:00amFarooq Sanchez-patient / Bih-pxpjt-[facility]klzmyymb [facility] 20[facility] 12:00Farooq Soto MD Recent Diagnosis Onset Date Admit Date Acquired hemophilia A Unknown July 062024 3:39pm ASHD (arteriosclerotic heart disease) Unknown July 06, 2025 3:39pm Decreased appetite Unknown July 06, 2025 3:39pm Mucopurulent chronic bronchitis Unknown July 06, 2025 3:39pm Pulmonary nodule Unknown July 06, 025 3:39pm Diarrhea Unknown July 06 3:39pm Essential (primary) hypertension Unknown July 06, 2025 3:39pm Nicotine dependence Unknown July 3:39pm Prerenal azotemia Unknown July 06, 2025 3:39pm CAMILLA (acute kidney injury) Unknown Novemb er 2024 2:00pm Anemia Unknown July 07 2:00pm Asystole Unknown July 07 2:00pm Blood in stool Unknown July 07 2:00pm Diarrhea Unknown July 07 2:00pm Elevated cholesterol Unknown July 2:00pm Essential (primary) hypertension Unknown July 07, 2025 2:00pm Impaired mobility and activi ties of daily living Unknown July 07, 2025 2:00pm Nicotine dependence Unknown July 2:00pm Paroxysmal atrial fibrillation with RVR Unknown July 07, 2025 2:00pm Prerenal azotemia Unknown July 07, 2025 2:00pm Severe protein-calorie malnutrition Unknown July 07, 2025 2:00pm Sick sinus syndrome Unknown July 2:00pm Weight loss Unknown July 07 2:00pm COPD (chronic obstructive pulmonary disease) Unk nown July 19, 2025 4:59pm Anemia Unknown July 19, 2 025 4:59pm Diarrhea Unknown July 19, 2 025 4:59pm Essential (primary) hypertension Unknown July 19, 2025 4:59pm Impaired mobility and activi ties of daily living Unknown July 19, 2025 4:59pm Nicotine dependence Unknown July 4:59pm Paroxysmal atrial fibrillation with RVR Unknown July 19, 2025 4:59pm Sick sinus syndrome Unknown July 4:59pm Weight loss Unknown July 19, 025 4:59pm Assessments Diagnosis Onset Date Resolution Status Admit Date Acquired hemophilia [facility] 3:39pmASHD (arteriosclerotic heart disease)acuteE[facility] Hospitalember 2024 3:39pmDecreased appetiteacuteNov2024 3:39pmMucopurulent chronic bronchitisacuteNov2024 3:39pmPulmonary noduleacuteNovprescott [facility] 2024 3:39pmDiarrhearesolvedMary Breckinridge Hospital 2024 3:39pmEssential (primary) hypertensionresSelect [facility] 20[facility] 3:39pmNicotine dependenceresSelect [facility]ty [facility] 2024 3:39pmPrerenal azotemiaresSelect [facility]ty [facility] 2024 3:39pmAKI (acute kidney injury)resolvedMary [facility] 2024 2:00pmAnemiaresSelect Specialty [facility] 2024 2:00pmAsystoleresSelect [facility]ty [facility] 2024 2:00pmBlood in stoolresSelect [facility] 2024 2:00pmDiarrhearesSelect Specialty Hospital [facility] 2024 2:00pmElevated cholesterol [facility] 2024 2:00pmEssential (primary) hypertensionresolved July 07, 2025 2:00pmImpaired mobility and activities of daily living [facility] 2024 2:00pmNicotine dependenceresSelect Specialty [facility] 2024 2:00pmParoxysmal atrial fibrillation with RVRresSelect Specialty [facility] 2024 2:00pm Prerenal azotemiaresSelect [facility]ty [facility] 2024 2:00pmSevere protein-calorie malnutritionresSelect [facility]ty [facility] 2024 2:00pmSick sinus syndromeresSelect [facility] 2024 2:00pmWeight lossresolvedMary [facility] 2024 2:00pmCOPD (chronic obstructive pulmonary disease)acuteMary [facility]ckinridge Hospital 2024 4:59pmAnemiaresolved July 19, 2025 4:59pmDiarrhearesSelect Specialty [facility] 2024 4:59pmEssential (primary) hypertensionresolvedMary [facility] 2024 4:59pmImpaired mobility and activities of daily livingresSelect Specialty [facility] 2024 4:59pmNicotine dependence resolvedJuly 19, 2025 4:59pmParoxysmal atrial fibrillation with RVR resolvedE[facility]2024 4:59pmSick sinus syndromeresSelect Specialty [facility] 2024 4:59pmWeight lossresSelect Specialty [facility] 2024 4:59pm Plan of Treatment Author Dony Rao [facility] 2024 9:35pmThis patient is stable without activity related chest pain, dyspnea or lightheadedness. I instructed them to continue exercise at least 3x weekly and consume a low salt, low fat, high fiber diet. I instructed them to continue secondary prevention measures in reducing risks for recurrent events. Mucolytics as needed. No ER visits for AECOPD No inhalers necessary for ADL Instructed on smoking cessation This patient has been encouraged to quit tobacco use immediately. They are aware of the hazards associated with tobacco use, including but not limited to respiratory infections, vascular disease and cancers. Not a candidate for yearly LDCT chest for lung cancer screening. No ER visits for AECOPD No use of inhalers for ADL Quit tobacco use briefly following hospitalization in Aug, 2024 but has restarted I have instructed this patient to consume a healthy, low-fat, low-salt diet. I have also encouraged them to continue exercise with weight loss to achieve/maintain a BMI < 30. I have instructed this patient on the correct procedure for obtaining home BP measurements:? - rest for 5 minutes w/o talking. - positioned w/ feet on floor and arms supported. - average best 2/3 readings w/ goal < 135/85. - update office w/ home readings in 2 weeks. Due for surveillance CT scan. Denies change in breathing, cough, sputum or hemoptysis CT: 9mm nodule EMMIE - 06/2023 CT: unchanged - 12/2023 CT: no mention of nodules, post traumatic changes - 06/2024 Repeat 06/2025 No s/s bleeding. Instructed to avoid NSAIDs, ASA He denies any fever, chills, melena or hematochezia He denies any sick contacts or recent antibiotic use. His diarrhea is frequent and water in consistency. Associated w/ poor appetite and decreased intake of fluids and nutrition. Hypotensive due to volume depletion Instructed to go to ER for evaluation and treatment Secondary to acute illness - r/o sepsis - r/o metabolic disorder Secondary to decrease fluid intake and increased loss through GI system. Instructed to go to ER for evaluation and treatment Future Tests Future scheduled test information is unavailable Pending Tests Pending diagnostic test information is unavailable Future Visits Future appointment information is unavailable Future Procedures Procedure Name Ordered Date Scheduled Date STR cardiac stress/lexiscan July 15, 2025 5:48pm July 15, 2025 5:48pm Diet Supplement July 08, 2025 12:43pm Novem 2024 12:43pm Admit Status Order July 07, 2025 2:40pm Nov ember 2024 2:40pm Consult to Cardiology July 10, 2025 2:48pm July 10, 2025 2:48pm Discharge Order July 19, 2025 2:25pm Novem 2024 2:25pm Consult to Electrophysiology July 11, 2025 10:53am July 11, 2025 10:53am Consult to Gastroenterology July 09, 2025 3 :31pm July 09, 2025 3:31pm Consult to Nephrology July 07, 2025 2:46pm July 07, 2025 2:46pm Consult to Physiatry July 15, 2025 10:49am July 15, 2025 10:49am Diet Supplement July 19, 2025 5:13pm Novem 2024 5:13pm Admit Status Order July 19, 2025 5:02pm No vember 2024 5:07pm Consult to Adult Hospitalist July 19, 2025 5:02pm July 19, 2025 5:07pm Discharge Order August 04, 2025 11:06am Decem 2024 11:06am Future Medications Future medication information is unavailable Patient Instructions Instruction Admit Date Hope Pamphlet July 07, 2025 2 :00pm Oxygen therapy at home Know your Meds Drugs, Alcohol & Your Well-BeingNovember 2024 4:59pm
[2025-08-06 03:53] VITALS: BP 127/69; PULSE 83; TEMP 36.5; O2SAT 91; BMI 22.6
--- NOTE | 2025-08-06 04:28 | XR_ITS ---
[place] [id number] Patient Name: ELIDA JERONIMO MRN: [id number] date: 1940 Sex: M Assigned Patient Location: ER Current Patient Location: Accession/Order Number: [id number] Exam Date: 08/06/2025 04:30 Report Date: 08/06/2025 08:24 At the request of: TOO CORONA MD Procedure: XR chest 1V PA CHEST: CLINICAL HISTORY: short of breath COMPARISON: CT chest 12/23/2023 Left chest wall pacemaker device. Stable enlarged cardiomediastinal silhouette. Postsurgical changes status post right-sided rib external fixation. Chronic changes within the lungs. No evidence acute disease opacity effusion or pneumothorax. XR/XR chest 1V IMPRESSION: Postsurgical changes right chest wall. Negative for acute pleural or parenchymal disease. Impression dictated by: Augustus Calero M.D. 08/06/2025 8:24 AM Dictation Location: [place] [address] Electronically authenticated by: [id number] Y Date: 08/06/2025 08:24
--- OUTSIDE RECORDS SUMMARY | 2025-08-06 04:29 | XMS_ITS | Clinical Summary ---
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 Role Phone Unavailable Primary Care Provider Unavailabl e Social History Tobacco UseTypesPacks/DayYears UsedDateSmoking Tobacco: Never AssessedUT Safety & EnvironmentAnswerDate RecordedFear of Current or Ex-PartnerNot on file 10/23/2023Emotionally AbusedNot on file10/23/2023hysically AbusedNot on file 10/23/2023Sexually AbusedNot on file10/23/2023hysically or Sexually AbusedNot on file10/23/2023Sex and Gender InformationValueDate RecordedSex Assigned at BirthNot on fileLegal OlvLsqv6002/27/2022 10:36 PM EDTGender IdentityNot on file Sexual OrientationNot on file Last Filed Vital Signs Vital SignReadingTime TakenCommentsBlood Gzgqbdvf290/66823 2:05 PM EST Pulse--Temperature--Respiratory Rate--Oxygen Qfjubxqcue37%07/05/2019 2:04 PM EST Inhaled Oxygen Concentration--Gtlklx89.9 kg (152 lb)07/05/2019 2:04 PM ESTHeight 172.7 cm (5' 8 )07/05/2019 2:01 PM ESTBody Mass Index23. 2:01 PM EST Plan of Treatment Health MaintenanceDue DateLast DoneCommentsMedicare Annual Wellness (AWV) 1Depression Pixyyjwgm02/24/1952Pneumococcal Vaccine: 50+ Years (1 of 2 - PCV)1960Adult Myhwjfr3105/25/1963Zoster Vaccines (1 of 2)1991Fall Risk Hbzilgpce25/24/2006COVID-19 Vaccine (1 - 2024- season)2025Influenza Vaccine (#1)2025HIB [...] patient's age to complete [place] [address] [place] [address]
--- OUTSIDE RECORDS SUMMARY | 2025-08-06 04:29 | XMS_ITS | Encounter Summary ---
Author Organization [facility] Address [address] 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 Name Role Phone Unavailable Primary Care Provider Unavailabl e Encounter Details DateTypeDepartmentCare Team (Latest Contact Info)Isfawdtxrhn43/18/2025Orders Only [facility] [address] [place] [address] Scanning, Generic Provider Social History Tobacco UseTypesPacks/DayYears UsedDateSmoking Tobacco: Never AssessedSex and Gender InformationValueDate RecordedSex Assigned at BirthNot on fileLegal Sex Male07/11/2025 8:54 AM ESTGender IdentityNot on fileSexual OrientationNot on filedocumented as of this encounter Plan of Treatment DateTypeDepartmentCare Team (Latest Contact Info)Sogdnuqepxp11/15/2025 3:00 PM ESTOffice Visit [address] [phone] Susy Parks MD [address] [facility] [address], [address] [address] 10/26/2025 10:40 AM ESTOffice Visit [address] [phone] Susy Parks MD [address] [facility] [address], [address] [address] documented as of this encounter Procedures Procedure NamePriorityDate/TimeAssociated DiagnosisCommentsNUCLEAR STRESS TEST - ONBASE SCAN07/19/2025 documented in this encounter Results * Nuclear Stress Test - Onbase Scan (07/19/2025) Narrative 07/19/2025 Ordered by an unspecified provider. Authorizing ProviderResult TypeResult StatusGeneric Provider ScanningCV STRESS PROCEDURESFinal Result documented in this encounter Visit Diagnoses Not on filedocumented in this encounter
--- OUTSIDE RECORDS SUMMARY | 2025-08-06 04:29 | XMS_ITS | CCD ---
Author Organization [facility] Care Team Providers Care Custodian Name Role Phone Dony Moore Unavailable TERESA, [...] Referring Unavailable PROVIDER, UNKNOWN Attending Unavailable LAURA, IGRISH Admitting Unavailable HAYLEE, LUDMILA Referring Unavailable PROVIDER, [...] SANCHEZ Attending Unavailable LAURA, GIRISH Admitting Unavailable [phone], IP TEAM TRAUMA Consulting Unavail able HAYLEE, [...] Care Provider Dony Moore DO Attending Provider [phone] Sunil Calvillo MD Attending Provider [phone] Elizabeth ([facility]) Maggie MENA Attending Provider Vinnie Jimenez MD Admit Provider Vinnie Jimenez MD Other Provider Pacheco Singh MD Attending Provider Pacheco Singh MD Other Provider Elizabeth ([facility])Maggie Admitting Unavailable Elizabeth ([facility]), Maggie Jain Attending Unavailable Dony Moore Primary Care Unavailable Mischler, Isha Consulting Unavailable Tony, Firas Admitting Unavailable Alessandro Guzman Attending Unavailable Mischler, Isha Consulting Unavailable Michael Mckeon Consulting Unavailable Susy Snowden Consulting Unavailable Agnes Cardozo Consulting Unavailable Desire Mckeon Consulting Unavailable Janelle Pedroza Consulting Unavailable Shantel Olea Consulting Unavailable Crispin Alva Consulting Unavailable April Guzman Consulting Unavailable Pacheco Singh Consulting Unavailable Medications Current Medications MedicationDrug Class(es)DatesSig (Normalized)Sig (Original)acetaminophen 500 mg oral tablet (7 sources)Start: 88-10-9525vggk 2 tablets intragastric route every six hours acetaminophen (TYLENOL) 500 MG tablet 2 Tablets by G Tube route every 6 (six) hours. 30 Tablet 06/10/2024 ActiveStart: 15-73-4449mkkm 2 tablets by mouth three times dailyAcetaminophen (Tylenol Extra Strength) 500 mg tablet Active 1000 MG PO Three times daily December 10, 2023 11:00pm Chronic neck and back pain Cervicalgia Dorsalgia, unspecified Other chronic pain painComplies with drug therapyStart: 50-40-8765obvg 1 tablet by mouth every six hours as neededtake 1 tablet by mouth every six hoursTylenol Extra Strength 500 MG 1 tablet as needed Orally every 6 hrs [id number] 200 actuat albuterol 0.09 mg/actuat metered dose inhaler (16 sources)beta2-Adrenergic AgonistStart: 06-10-2024 End: 24-47-2993gkjnzvtez (PROVENTIL) (2.5 MG/3ML) 0.083% nebulizer solution Use 3 mL via nebulizer every 4 hours as needed for Shortness of Breath (or not indicated). 90 Each 06/10/2024 07/10/2024 ActiveStart: 87-31-2631hvld 4 puff(s) by mouth every four hours as needed for wheezingalbuterol (Proventil HFA) INHALATION HFA inhaler (VENTOLIN,PROAIR,PROVENTIL) 90mcg Inhale 4 Puffs by mouth every 4 hours as needed for Shortness of Breath or Wheezing. 18 g 06/10/2024 ActiveStart: 69-10-7811aplo 1 puff(s) by inhalation every four hours as needed for wheezingAlbuterol Sulfate 90 mcg/actuation HFA aerosol inhaler Active 1 PUFF INHALATION Every 4 hours as needed for shortness of breath or wheezing December 10, 2023 11:00pm Non-compliance of drug therapytake 1 puff(s) by inhalation every four hours [...] 06/10/2024 Activeascorbic acid 500 mg chewable tablet (5 sources)Vitamin CStart: 69-50-7493nuro 1 tablet by mouth once dailyAscorbic Acid (Vitamin C) 500 mg tablet,chewable Active 500 MG PO Daily December 10, 2023 11:00pm Non-compliance of drug therapytake 1 tablet by mouth every twenty-four hoursVitamin C 500 MG 1 tablet Orally Once a day Activebiotin 10 mg oral capsule (16 sources)Start: 02-80-8258Nhdjaf 10,000 mcg capsule Active MCG PO December 10, 2023 11:00pm Non-compliance of drug therapyStart: 81-00-5199Txtkrs Active MCG PO December 11, 2023 12:00amtake 1 tablet by mouth every twenty-four hoursBiotin 92299 MCG 1 tablet Orally Once a day Not-Taking/PRNtake 1 tablet by mouth every twenty-four hoursBiotin 03355 MCG 1 tablet Orally Once a day Not-Takingtake 1 tablet by mouth once dailyBiotin 72618 MCG 1 tablet Orally Once a day Not-Taking take 1 tablet by mouth once dailyBiotin 61964 MCG 1 tablet Orally Once a day ActiveBiotin Plus Keratin 73303-680 MCG-MG (9 sources)Biotin Plus Keratin 31397-239 MCG-MG as directed Orally Active cefdinir 300 mg oral capsule (9 sources)Cephalosporin AntibacterialCefdinir 300 MG as directed Orally Active cholecalciferol 0.025 mg oral capsule (5 sources)Vitamin DStart: 52-66-3214cmkk 1 capsule by mouth once daily Cholecalciferol (Vitamin D3) 25 mcg (1,000 unit) capsule Active 25 MCG PO Daily December 10, 2023 11:00pm Non-compliance of drug therapytake 1 tablet by mouth every twenty-four hoursVitamin D 25 MCG (1000 UT) 1 capsule Orally Once a day Not-Taking/PRNcloNIDine hydrochloride 0.1 mg oral tablet (2 sources)Central alpha-2 Adrenergic AgonistStart: 58-74-6973zwcKAChxt (CATAPRES) 0.1 MG tablet 1 Tablet by G Tube route every 8 hours. 60 Tablet 3 06/10/2024 Active0.4 ml enoxaparin sodium 100 mg/ml prefilled syringe (2 sources)Low Molecular Weight HeparinStart: 06-10-2024 End: 39-10-3269tvtffc 0.4 mL by subcutaneous injection twice dailyenoxaparin (LOVENOX) 40 MG/0.4ML injection Inject 0.4 mL under the skin 2 times daily. 24 mL 06/10/2024 07/10/2024 Cmbcwa319 actuat fluticasone propionate 0.11 mg/actuat metered dose inhaler (2 sources)CorticosteroidStart: 27-90-1201sdea 1 puff(s) by mouth twice daily fluticasone (FLOVENT HFA) 110 MCG/ACT inhaler Inhale 1 Puff by mouth 2 times daily. 12 g 06/10/20240759Ggqrcj15 actuat fluticasone furoate 0.1 mg/actuat / umeclidinium 0.0625 mg/actuat / vilanterol 0.025 mg/actuat dry powder inhaler (1 source)Anticholinergic, Corticosteroid, beta2-Adrenergic AgonistStart: 50-96-4964ogtg 1 puff(s) by inhalation once dailyTrelegy Ellipta 100-62.5-25 MCG/ACT 1 puff Inhalation Once a day for 30 days Sep, Activefolic acid 1 mg oral tablet (3 sources)take 1 tablet by mouth every twenty-four hoursFolic Acid 1 MG 1 tablet Orally Once a day Activehydrocortisone 10 mg/ml topical cream (2 sources)CorticosteroidStart: 06-10-2024 End: 66-76-6113fnvqhywhbtumlk 1 % cream Apply topically 2 times daily. Apply thin layer to affected area. 30 g 06/10/2024 07/10/2024 Activelabetalol hydrochloride 5 mg/ml injectable solution (2 sources)beta-Adrenergic BlockerStart: 80-71-4760hlndnd 2 mL intravenously every six hours as neededlabetalol (TRANDATE) 5 mg/mL injection 2 mL by Intravenous Push route every 6 hours as needed (SBP >160). 4 mL 06/10/2024 Activelisinopril 40 mg oral tablet (20 sources)Angiotensin Converting Enzyme InhibitorStart: 01-16-2024 End: 30-57-7938exxn 1 tablet by mouth once dailyLisinopril 40 mg tablet Active 0 .ROUTE .COMPLEX 90 March 30, 2025 6:42am On Hold: On hold per Primary Care Physician TAKE 1 TABLET BY MOUTH EVERY DAY Complies with drug therapyStart: 09-08-2022 End: 27-28-1877tgak 1 tablet by mouth once dailyLisinopril 40 mg tablet Discontinued 40 MG PO Daily December 10, 2023 11:00pm January 16, 2024 6:34am melatonin 3 mg oral tablet (2 sources)Start: 46-89-7804dggy 1 tablet by mouth at bedtimemelatonin 3 MG TABS tablet Take 1 Tablet by mouth at bedtime. 30 Tablet 06/10/2024 Fibmjn25 hr metoprolol succinate 25 mg extended release oral tablet (20 sources)beta-Adrenergic BlockerStart: 01-16-2024 End: 25-92-4454ezxv 1 tablet by mouth once dailyMetoprolol Succinate 25 mg tablet extended release 24 hr Active 0 .ROUTE .COMPLEX 90 March 30, 2025 6:42am TAKE 1 TABLET BY MOUTH EVERY DAY Complies with drug therapyStart: 09-08-2022 End: 44-66-2687veje 1 tablet by mouth once dailyMetoprolol Succinate 25 mg tablet extended release 24 hr Discontinued 25 MG PO Daily December 10, 2023 11:00pm January 16, 2024 6:34amtake 1 capsule by mouth once dailyMetoprolol Succinate 25 MG 1 capsule Orally Once a day Activeniacinamide 500 mg oral tablet (12 sources)Start: 41-65-9976ycxg 1 tablet by mouth once dailyNiacinamide 500 mg tablet Active 500 MG PO Daily December 10, 2023 11:00pm Non-compliance of drug therapytake 1 tablet by mouth every twenty-four hoursNiacinamide 500 MG 1 tablet Orally Once a day Luzscx14 hr nicotine 0.875 mg/hr transdermal system (2 sources)Cholinergic Nicotinic AgonistStart: 61-31-9443cmdaz 1 dose transdermal route once dailynicotine (NICODERM CQ) 21 mg/24HR patch Place 1 Patch on the skin daily. 30 Patch 06/11/2024 Active2 ml ondansetron 2 mg/ml injection (2 sources)Serotonin-3 Receptor AntagonistStart: 31-61-9564zwyerl 2 mL intravenously every six hours as neededondansetron (ZOFRAN) 4 MG/2ML injection 2 mL by Intravenous Push route every 6 hours as needed. 15 mL 06/10/2024 Active oxyCODONE hydrochloride 5 mg oral tablet (3 sources)Opioid AgonistStart: 06-10-2024 End: 34-72-1841vwaTJYPQR 5 MG immediate release tablet Indications: Closed nondisplaced fracture of pelvis, unspecified part of pelvis, initial encounter (HCC) 1 Tablet by G Tube route every 4 hours as needed for up to 5 days. 28 Tablet 06/10/2024 06/15/2024 ActiveStart: 06-10-2024 End: 44-39-4831zryOHEHDQ 5 MG immediate release tablet Indications: Closed nondisplaced fracture of pelvis, unspecified part of pelvis, initial encounter (HCC) 2 Tablets by G Tube route every 4 hours as needed for up to 3 days. 28 Tablet 06/10/2024 06/13/2024 Activepantoprazole 40 mg injection (2 sources)Proton Pump InhibitorStart: 49-40-2799gjhctv 10 mL intravenously once daily 30 minutes before breakfastpantoprazole (PROTONIX) 40 MG SOLR injection 10 mL by Intravenous Push route daily (30 minutes before breakfast). 30 Each 06/11/2024 ActivePediatric Multivitamins-Iron (Cerovite Jr) chew tab (2 sources)Start: 06-11-2024 End: 32-88-6540vttr 1 tablet by mouth once dailyPediatric Multivitamins-Iron (Cerovite Jr) chew tab Chew and swallow 1 Tablet by mouth daily. 30 Tablet 06/11/2024 07/11/2024 Activesulfamethoxazole 800 mg / trimethoprim 160 mg oral tablet (1 source)Dihydrofolate Reductase Inhibitor Antibacterial, Sulfonamide AntimicrobialStart: 02-56-3351iwvf 1 tablet by mouth every twelve hoursBactrim DS 800-160 MG 1 tablet Orally Twice a day for 10 day(s) December, Active Tylenol Extra Strength 500 MG (7 sources)take 1 tablet by mouth every six hours as neededTylenol Extra Strength 500 MG 1 tablet as needed Orally every 6 hrs Orovwv88 actuat umeclidinium 0.0625 mg/actuat / vilanterol 0.025 mg/actuat dry powder inhaler (2 sources)Anticholinergic, beta2-Adrenergic AgonistStart: 06-10-2024 End: 32-29-6594azjy 1 puff(s) by mouth once dailyumeclidinium-vilanterol (ANORO- ELLIPTA) 62.5-25 mcg/inh AEPB inhalation powder Inhale 1 Puff by mouth daily. 60 Each 06/10/2024 07/10/2024 ActiveVitamin C 500 MG (7 sources)take 1 tablet by mouth once dailyVitamin C 500 MG 1 tablet Orally Once a day Active Completed/Discontinued Medications MedicationDrug Class(es)DatesSig (Normalized)Sig (Original)esomeprazole 20 mg delayed release oral capsule (16 sources)Proton Pump InhibitorStart: 12-11-2023 End: 34-81-0396glvp 1 capsule by mouth once dailyEsomeprazole Magnesium (Nexium) 20 mg capsule,delayed release(DR/EC) Discontinued 20 MG PO Daily December 10, 2023 11:00pm December 12, 2023 12:57pmtake 1 capsule by mouth every twenty-four hoursNexIUM 20 MG 1 capsule Orally Once a day Activeiohexol (OMNIPAQUE) 300 MG/ML injection (2 sources)Start: 06-06-2024 End: 92-21-5508fmyz 1 dose by mouth once50 mL, Oral, Once at Radiology exam, 1 dose, Starting on 06/06/24 at 1508, Until 06/06/24 at 1508, Imaging Protocol OrdersStart: 06-01-2024 End: 33-25-6926npab 1 dose by mouth once50 mL, Oral, Once at Radiology exam, 1 dose, Starting on Tu06/01/24 at 1244, Until Tu06/01/24 at 1144, Imaging Protocol Ordersiohexol (OMNIPAQUE) 350 MG/ML injection (4 sources)Start: 06-06-2024 End: 96-13-0073gspo 1 dose intravenously oluy877 mL, Intravenous Push, Once at Radiology exam, 1 dose, Starting on 06/06/24 at 1508, Until 06/06/24 at 1508, Imaging Protocol OrdersStart: 05-30-2024 End: 44-60-3321lids 1 dose intravenously cybq355 mL, Intravenous Push, Once at Radiology exam, 1 dose, Starting on 05/30/24 at 1707, Until 05/30/24 at 1707, Imaging Protocol OrdersStart: 05-29-2024 End: 86-15-2743jfbs 1 dose intravenously fdrq264 mL, Intravenous Push, Once at Radiology exam, 1 dose, Starting on 05/29/24 at 1145, Until 05/29/24 at 1145, Imaging Protocol OrdersStart: 05-17-2024 End: 30-88-4187ujhw 1 dose intravenously once75 mL, Intravenous Push, Once at Radiology exam, 1 dose, Starting on Fri05/17/24 at 1518, Until Fri05/17/24 at 1514, Imaging Protocol Ubruqo47 ml lidocaine hydrochloride 20 mg/ml injection (4 sources)Antiarrhythmic, Amide Local AnestheticStart: 05-17-2024 End: 13-64-9689Ocrjgaqehc, Once PRN Procedure, Starting on Fri05/17/24 at 1345, Until Fri05/17/24 at 1345, Intra-opmupirocin 0.02 mg/mg topical ointment (2 sources)RNA Synthetase Inhibitor AntibacterialStart: 02-10-2025 End: 31-41-4645Aedwvoczw 2 % ointment Discontinued 1 APPLIC TOPICAL Twice daily 22 10 0 February 09, 2025 11:00pm July 07, 2025 5:02pmniacin 500 mg oral tablet (13 sources)Nicotinic Acidtake 1 tablet by mouth every twenty-four hoursNiacin 500 MG 1 tablet with food Orally Once a day Not-Taking/PRNpredniSONE 10 mg oral tablet (12 sources)Start: 12-11-2023 End: 49-11-9257aceq 1 tablet by mouth once dailyPrednisone 10 mg tablet Discontinued 10 MG PO Daily December 10, 2023 11:00pm December 12, 2023 12:58pm take 1 tablet by mouth every twenty-four hourspredniSONE 10 MG 1 tablet Orally Once a day Activepsyllium 400 mg oral capsule (2 sources)Start: 12-11-2023 End: 09-19-9207Dgvibbkp Husk 0.4 gram capsule Discontinued 0.4 GM PO Daily December 10, 2023 11:00pm December 12, 2023 12:58pmPsyllium Husk (10 sources)Start: 12-11-2023 End: 86-71-7156qabm 0.4 g by mouth once dailyPsyllium Husk Discontinued 0.4 GM PO Daily December 11, 2023 12:00am December 12, 2023 1:58pmPsyllium Husk Active Sennosides (1 source)Start: 12-11-2023 End: 94-68-6770oimp 17.2 mg by mouth once daily at bedtimeSennosides Discontinued 17.2 MG PO Daily at bedtime December 11, 2023 12:00am December 12, 2023 1:58pmsennosides, [facility] 8.6 mg oral tablet (11 sources)Start: 12-11-2023 End: 89-03-1843rsio 2 tablets by mouth once daily at [...] Active Problems Active Problems Problem ClassificationProblemDateDocumented DateEpisodic/ChronicAcute and unspecified renal failure (3 sources)Acute renal failure syndrome; Translations: [Acute kidney failure, unspecified]Onset: 357497-19-0707HbvzpuknFlyau posthemorrhagic anemia (7 sources)Acute posthemorrhagic anemia; Translations: [Acute posthemorrhagic anemia]EpisodicAlcohol-related disorders (15 sources)Alcoholic fatty liver; Translations: [Alcoholic fatty liver]Chronic Cardiac arrest and ventricular fibrillation (1 source)Cardiac arrest, cause unspecified; Translations: [Cardiac arrest, cause unspecified]Onset: 35-97-7976OhfgmutXcsnojn dysrhythmias (2 sources)Sick sinus syndrome; Translations: [Paroxysmal atrial fibrillation] Onset: 24-69-0444ZqlfvxaJjihsal obstructive pulmonary disease and bronchiectasis (20 sources)Mucopurulent chronic bronchitis; Translations: [Mucopurulent chronic bronchitis]ChronicCoagulation and hemorrhagic disorders (20 sources)Acquired coagulation factor deficiency; 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]Onset: 02-15-2022 Resolved: 67-45-1222QnrwrqqZugqnzcc atherosclerosis and other heart disease (20 sources)Coronary arteriosclerosis; Translations: [Atherosclerotic heart disease of [place] coronary artery without angina pectoris]Onset: 10-22-2022 ChronicCrushing injury or internal injury (20 sources)Traumatic pneumothorax; Translations: [Traumatic pneumothorax, initial encounter]Onset: 126338-75-6118UhuiykwtEvqvkkwz, dementia, and amnestic and other cognitive disorders (20 sources)Delirium due to multiple etiological factors; Translations: [Delirium due to known physiological condition]Onset: 238010-55-2083 ChronicDisorders of lipid metabolism (20 sources)Hypercholesterolemia; Translations: [Pure hypercholesterolemia, unspecified]Onset: 84-53-7061PmpkitkMtdchwmnar disorders (20 sources)Gastro-esophageal reflux disease with esophagitis; Translations: [Gastroesophageal reflux disease with esophagitis without hemorrhage]Chronic Esophageal disorders (8 sources)Esophageal disorders; Translations: [Gastroesophageal reflux disease with esophagitis, unspecified whether hemorrhage]Essential hypertension (20 sources)Essential hypertension; Translations: [Essential (primary) hypertension]Onset: 66-75-1421QcmqwmmMtdsg and electrolyte disorders (17 sources)Hyponatremia; Translations: [Hypo-osmolality and hyponatremia]Onset: 05-16-2024 Resolved: 56-22-8862QhkhhoprUqwzhekzecxwbglp hemorrhage (1 source)Melena; Translations: [Melena]Onset: 18-62-4679KpreztnjRcafokrgwkqco symptoms and ill-defined conditions (17 sources)Increased frequency of urination; Translations: [Frequency of micturition]EpisodicHyperplasia of prostate (17 sources)Nocturia due to benign prostatic hypertrophy; Translations: [Benign prostatic hyperplasia with lower urinary tract symptoms]ChronicImmunizations and screening for infectious disease (4 sources)Vaccination given; Translations: [Encounter for immunization]Episodic Nutritional deficiencies (1 source)Unspecified severe protein-calorie malnutrition; Translations: [Unspecified severe protein-calorie malnutrition]Onset: 34-89-8163YwjrztpZjbhj aftercare (20 sources)Under care of palliative care physician; Translations: [Encounter for palliative care]Onset: 910848-86-1960RycvjwlpXgasf connective tissue disease (7 sources)Olecranon bursitis; Translations: [Olecranon bursitis, right elbow] EpisodicOther endocrine disorders (13 sources)Mass of left adrenal gland; Translations: [Other specified disorders of adrenal gland]ChronicOther endocrine disorders (4 sources)Disorder of adrenal gland; Translations: [Other specified disorders of adrenal gland]ChronicOther fractures (20 sources)Closed flail chest; Translations: [Flail chest, initial encounter for closed fracture]Onset: 055094-61-1674XtobnswjEasgh fractures (1 source)Closed fracture of multiple ribs; Translations: [Multiple fractures of ribs, unspecified side, initial encounter for closed fracture]Onset: 05-16-2024 EpisodicOther gastrointestinal disorders (20 sources)Drug-induced constipation; Translations: [Drug induced constipation] Onset: 369070-73-5882WedbwbyqIctol gastrointestinal disorders (3 sources)Diarrhea; Translations: [Diarrhea, unspecified]90-78-2436Bmxcvgom Other gastrointestinal disorders (1 source)Diarrhea, unspecified; Translations: [Diarrhea, unspecified]Onset: 57-75-3910FlkgstovQbdmz injuries and conditions due to external causes (4 sources)History of fall; Translations: [History of falling]EpisodicOther injuries and conditions due to external causes (1 source)Injury of head; Translations: [Unspecified injury of head, initial encounter]Onset: 18-42-3052KwdhyshqSvjpi lower respiratory disease (14 sources)Nodule of lung; Translations: [Solitary pulmonary nodule]08-22-2024 EpisodicComment on above:CT: 9mm nodule EMMIE - 06/2023,CT: unchanged - 12/2023, Other lower respiratory disease (6 sources)Solitary pulmonary noduleEpisodicOther lower respiratory disease (20 sources)Rib pain; Translations: [Pleurodynia]Onset: 161550-12-6875 EpisodicOther nutritional; endocrine; and metabolic disorders (2 sources)Decrease in appetite; Translations: [Anorexia]84-32-4051XcqwrevaWrife nutritional; endocrine; and metabolic disorders (1 source)Abnormal weight loss; Translations: [Abnormal weight loss]Onset: 22-48-8205YhkatawqXiysl screening for suspected conditions (not mental disorders or infectious disease) (6 sources)Other specified abnormal findings of blood chemistry; Translations: [Prerenal azotemia]Onset: 29-84-2248DfrkjowvFasgq skin disorders (1 source)Xerosis cutisEpisodicPhlebitis; thrombophlebitis and thromboembolism (20 sources)Acute embolism and thrombosis of unspecified deep veins of left proximal lower extremity; Translations: [Acute embolism and thrombosis of left femoral vein]Onset: 65-15-1656TiiaqsegHttftyda; pneumothorax; pulmonary collapse (1 source)Pneumothorax; Translations: [Pneumothorax, unspecified]Onset: 47-78-2797OtbqqfioEjchqtuli heart disease (5 sources)Pulmonary embolism; Translations: [Single subsegmental pulmonary embolism without acute cor pulmonale]EpisodicResidual codes; unclassified (7 sources)Tobacco user; Translations: [Tobacco use]EpisodicRespiratory failure; insufficiency; arrest (adult) (12 sources)Acute on chronic hypercapnic respiratory failure; Translations: [Acute and chronic respiratory failure with hypercapnia]ChronicRespiratory failure; insufficiency; arrest (adult) (20 sources)Acute respiratory failure; Translations: [Acute respiratory failure with hypoxia]Onset: 098205-97-8230ImbrmpsgIhggcukiqsp; intervertebral disc disorders; other back problems (20 sources)Lumbar spondylosis; Translations: [Spondylosis without myelopathy or radiculopathy, lumbar region]ChronicSpondylosis; intervertebral disc disorders; other back problems (4 sources)Low back pain; Translations: [Low back pain, unspecified]Episodic Substance-related disorders (20 sources)Nicotine dependence; Translations: [Nicotine dependence, cigarettes, uncomplicated]Onset: 55-09-4451NnnmxxxCsnycxc on above:Added secondary to documentation in Social History.Thyroid disorders (20 sources)Subclinical hypothyroidism; Translations: [Other specified hypothyroidism]Onset: 86-69-7611KjivnliCdlpphujduhb (4 sources)Elevation of levels of liver transaminase levels; Translations: [Elevation of levels of liver transaminase levels] Past or Other Problems Problem ClassificationProblemDateDocumented DateEpisodic/ChronicOther nutritional; endocrine; and metabolic disorders (7 sources)Overweight; Translations: [Overweight]Onset: 08-68-6982Oqqbsubo Sprains and strains (4 sources)Strain of muscle and/or tendon of lower leg; Translations: [Strain of other muscle(s) and tendon(s)of posterior muscle group at lower leg level, left leg, initial encounter] Resolved: 85-34-3450UbssmnobSwnjoyyyjzfs (3 sources)Acute bilateral low back pain without sciatica; Translations: [Acute bilateral low back pain without sciatica]Unclassified (3 sources)Elevated transaminase level; Translations: [Elevated transaminase level]Unclassified (2 sources)Single subsegmental pulmonary embolism without acute cor pulmonale Results Test NameValueInterpretationReference RangeFacilityComplete Blood Count Auto Diffon [id number] (Bld) [#/Vol]0.0 10*3/uLNormal0.0-0.2[facility] Physician GroupComment on above:Result Comment: PERFORMED BY: [address] [address] PATHOLOGIST INDUSTRIAL ACCOUNTANT VALERIE CAMPBELL M.D.Performed By: #### MG, CBC, CMP #### [address] [address] USABasophils/100 WBC (Bld)0.4 %Normal.[facility] Physician GroupComment on above:Performed By: #### MG, CBC, CMP #### [place] [address] USAEosinophils (Bld) [#/Vol]0.4 10*3/uLNormal0.0-0.45[facility] Physician GroupComment on above:Performed By: #### MG, CBC, CMP #### [place] [address] USAEosinophils/100 WBC (Bld)3.2 %Normal.[facility] Physician GroupComment on above:Performed By: #### MG, CBC, CMP #### [place] [address] USAErythrocyte distribution width (RBC) [Ratio]13.5 %Normal 12.0-14.8[facility] Physician GroupComment on above:Performed By: #### MG, CBC, CMP #### [place] [address] USAHematocrit (Bld) [Volume fraction]29.7 %Low38.8-50.0[facility] Physician GroupComment on above:Performed By: #### MG, CBC, CMP #### [place] [address] USAHemoglobin (Bld) [Mass/Vol]9.8 g/dLLow13.0-17.0[facility] Physician GroupComment on above:Performed By: #### MG, CBC, CMP #### [place] [address] USALymphocytes (Bld) [#/Vol]0.7 10*3/uLLow1.00-4.8[facility] Physician GroupComment on above:Performed By: #### MG, CBC, CMP #### [place] [address] USALymphocytes/100 WBC (Bld)6.2 %Normal.[facility] Physician GroupComment on above:Performed By: #### MG, CBC, CMP #### [address] [address] USAMCH (RBC) [Entitic mass]33.6 fcAxrwqa83.5-35.2The [facility] Physician GroupComment on above:Performed By: #### MG, CBC, CMP #### [address] (RBC) [Entitic vol]102.4 rXBetv28.5-101The [facility] Physician GroupComment on above:Performed By: #### MG, CBC, CMP #### [place] [address] USAMean Corpuscular HGB Conc32.8 g/rZZlhfxa22.5-35.6The [facility] Physician GroupComment on above:Performed By: #### MG, CBC, CMP #### [place] [address] USAMonocytes (Bld) [#/Vol]0.5 10*3/uLNormal0.0-0.8The [facility] Physician GroupComment on above:Performed By: #### MG, CBC, CMP #### [place] [address] USAMonocytes/100 WBC (Bld)4.6 %Normal.The [facility] Physician GroupComment on above:Performed By: #### MG, CBC, CMP #### [place] [address] USANeutrophils (Bld) [#/Vol]9.8 10*3/uLHigh1.8-7.7The [facility] Physician GroupComment on above:Performed By: #### MG, CBC, CMP #### [place] [address] USANeutrophils/100 WBC (Bld)85.6 %Normal.The [facility] Physician GroupComment on above:Performed By: #### MG, CBC, CMP #### [place] [address] USANRBC%0.0 /100{WBC}Normal0-0.5The [facility] Comment on above:Performed By: #### MG, CBC, CMP #### [place] [address] USAPlatelet mean volume (Bld) [Entitic vol]7.1 fLNormal 6.6-10.1The [facility] Physician GroupComment on above:Performed By: #### MG, CBC, CMP #### [place] [address] USAPlatelets (Bld) [#/Vol]243 10*3/pKKtildk476-313Sgy [facility] Physician GroupComment on above:Performed By: #### MG, CBC, CMP #### [place] [address] USARBC (Bld) [#/Vol]2.90 10*6/uLLow3.90-5.60The [facility] Physician GroupComment on above:Performed By: #### MG, CBC, CMP #### [place] [address] USAWBC (Bld) [#/Vol]11.5 10*3/uLHigh4.1-10.5The [facility] Physician GroupComment on above:Performed By: #### MG, CBC, CMP #### [place] [address] USAWhite Blood Count11.5 [CFU]/mLHigh4.1-10.5The [facility] Physician GroupComment on above:Performed By: #### MG, CBC, CMP #### [place] [address] USAComprehensive Metabolic Panelon 89-69-7781Lmpfexa [Mass/Vol]3.0 g/dLLow3.5-5.7The [facility] Physician GroupComment on above: Performed By: #### MG, CBC, CMP #### [place] [address] USAAlbumin/Globulin [Mass ratio]1.5 {ratio}NormalThe [facility] Physician GroupComment on above:Performed By: #### MG, CBC, CMP #### [place] [address] USAALP [Catalytic activity/Vol]48 U/BPhabjd39-577Aeo [facility] Physician GroupComment on above:Performed By: #### MG, CBC, CMP #### [facility] [address] [place] [address] USAALT [Catalytic activity/Vol]13 U/LNormal7-52The [facility] Physician GroupComment on above:Performed By: #### MG, CBC, CMP #### [facility] [address] [place] [address] USAAnion gap [Moles/Vol]8.9 mmol/LNormal6.0-15.0The [facility] Physician GroupComment on above:Performed By: #### MG, CBC, CMP #### [facility] [address] [place] [address] USAAST [Catalytic activity/Vol]15 U/TOgzhxu52-71Ome [facility] Physician GroupComment on above:Performed By: #### MG, CBC, CMP #### [facility] [address] [place] [address] USABilirubin [Mass/Vol]0.3 mg/dLNormal0.3-1.0The [facility] Physician GroupComment on above:Performed By: #### MG, CBC, CMP #### [place] [address] USACalcium [Mass/Vol]7.8 mg/dLLow8.6-10.3The [facility] Physician GroupComment on above:Performed By: #### MG, CBC, CMP #### [facility] [address] [place] [address] USAChloride [Moles/Vol]110 mmol/HHaok24-192Zhv [facility] Physician GroupComment on above:Performed By: #### MG, CBC, CMP #### [facility] [address] [place] [address] USACO2 [Moles/Vol]32.0 mmol/LHigh21.0-31.0The [facility] Physician GroupComment on above:Performed By: #### MG, CBC, CMP #### [facility] [address] [place] [address] USACreatinine [Mass/Vol]0.67 mg/dLLow0.70-1.30The [facility] Physician GroupComment on above:Performed By: #### MG, CBC, CMP #### [facility] [address] [place] [address] USACreatinine Clr Calc Lncskzmr57.35NormUF Health [facility] Physician GroupComment on above:Performed By: #### MG, CBC, CMP #### [facility] [address] [place] [address] USAGFR/1.73 sq M.predicted MDRD (S/P/Bld) [Vol rate/Area] mL/min/{1.73_m2}NormalThe [facility] Physician GroupComment on above:Performed By: #### MG, CBC, CMP #### [place] [address] USAGlobulin (S) [Mass/Vol]2.0 g/dLNoMission Family Health Center Physician GroupComment on above:Performed By: #### MG, CBC, CMP #### [place] [address] USAGlucose [Mass/Vol]82 mg/iHBqpbmn59-052Bbw [facility] Physician GroupComment on above:Result Comment: Random Glucose Reference Range is dependent on time and content of last meal. Glucose of more than 200 mg/dL in a nonstressed, ambulatory subject supports the diagnosis of Diabetes Mellitus. ADA recommended reference rangePerformed By: #### MG, CBC, CMP #### [place] [address] USAPotassium [Moles/Vol]3.9 mmol/LNormal3.5-5.1The [facility] Physician GroupComment on above:Performed By: #### MG, CBC, CMP #### [place] [address] USAProtein [Mass/Vol]5.0 g/dLLow6.4-8.9The [facility] Physician GroupComment on above:Performed By: #### MG, CBC, CMP #### [place] [address] USASodium [Moles/Vol]147 mmol/RKlfu945-218Naw [facility] Physician GroupComment on above:Performed By: #### MG, CBC, CMP #### [place] [address] USAUrea nitrogen [Mass/Vol]9 mg/dLNormal7-25The [facility] Physician GroupComment on above:Performed By: #### MG, CBC, CMP #### [place] [address] USAMagnesiumon 64-72-9732Rqdnsjdvs [Mass/Vol]1.7 mg/dLLow 1.9-2.7The [facility] Physician GroupComment on above:Result Comment: PERFORMED BY: [place] [address] PATHOLOGIST INDUSTRIAL ACCOUNTANT VALERIE CAMPBELL M.D.Performed By: #### MG, CBC, CMP #### [place] [address] USAXR chest 2V*on [id number] chest 2V*[facility] [place] [address] [place] [address] XRay Report Signed Patient: Andrea Michelle MR#: [id number] [birth year] : 1940 Acct:[id number] Age/Sex: 85 / M ADM Date: 07/07/25 Loc: Room: [address] [place] [address] Type: ADM IN Attending Dr: Alessandro Guzman MD Copies to: MD Crispin Lay M.D. Ordering Provider: Crispin Alva M.D. Date of Service: 07/14/25 XR/XR chest 2V*: S/P PPM Placement Plain film chest 2 view HISTORY: Status post left pacemaker insertion COMPARISON: 07/12/2025 FINDINGS: SUPPORT DEVICES: None POSTSURGICAL CHANGES: Cardiac device intact. Right rib fixation hardware redemonstrated. HEART: Within normal limits PULMONARY MATTHEW: Within normal limits MEDIASTINUM: Unremarkable LUNGS AND PLEURA: No acute lung process, pleural effusion or pneumothorax identified. BONY STRUCTURES: Intact ADDITIONAL FINDINGS None XR/XR chest 2V* IMPRESSION: No developing pneumothorax. Intact cardiac device. Impression dictated by: Mt Sweeney M.D. 07/14/2025 8:42 AM Dictation Location: [place] [address] Transcribed By: [facility] 07/14/25 0842 Dictated By: Mt Sweeney DO 07/14/25 0841 Signed By: 07/14/25 0842NoMission [facility] Physician GroupABO/Rh Retypeon [id number]/RH Recheck ResultPositiveNoMission Family Health Center Physician GroupComment on above: Result Comment: PERFORMED BY: [place] [address] PATHOLOGIST INDUSTRIAL ACCOUNTANT VALERIE CAMPBELL M.D.Complete Blood Count Auto Diffon [id number] (Bld) [#/Vol]0.0 10*3/uLNormal0.0-0.2The [facility] Physician GroupComment on above: Result Comment: PERFORMED BY: [place] [address] PATHOLOGIST INDUSTRIAL ACCOUNTANT VALERIE CAMPBELL M.D.Performed By: #### MG, CBC, CMP #### [facility] [address] [place] [address] USABasophils/100 WBC (Bld)0.4 %Normal.The [facility] Physician GroupComment on above:Performed By: #### MG, CBC, CMP #### [place] [address] USAEosinophils (Bld) [#/Vol]0.4 10*3/uLNormal0.0-0.45The [facility] Physician GroupComment on above:Performed By: #### MG, CBC, CMP #### [place] [address] USAEosinophils/100 WBC (Bld)3.2 %Normal.The [facility] Physician GroupComment on above:Performed By: #### MG, CBC, CMP #### [place] [address] USAErythrocyte distribution width (RBC) [Ratio]13.4 %Normal 12.0-14.8The [facility] Physician GroupComment on above:Performed By: #### MG, CBC, CMP #### [place] [address] USAHematocrit (Bld) [Volume fraction]31.1 %Low38.8-50.0The [facility] Physician GroupComment on above:Performed By: #### MG, CBC, CMP #### [place] [address] USAHemoglobin (Bld) [Mass/Vol]10.2 g/dLLow13.0-17.0The [facility] Physician GroupComment on above:Performed By: #### MG, CBC, CMP #### [place] [address] USALymphocytes (Bld) [#/Vol]0.9 10*3/uLLow1.00-4.8The [facility] Physician GroupComment on above:Performed By: #### MG, CBC, CMP #### [place] [address] USALymphocytes/100 WBC (Bld)7.3 %Normal.The [facility] Physician GroupComment on above:Performed By: #### MG, CBC, CMP #### [place] [address] USAMCH (RBC) [Entitic mass]33.5 maHeazql58.5-35.2The [facility] Physician GroupComment on above:Performed By: #### MG, CBC, CMP #### [place] [address] USAMCV (RBC) [Entitic vol]102.4 aFBrmn89.5-101The [facility] Physician GroupComment on above:Performed By: #### MG, CBC, CMP #### [place] [address] USAMean Corpuscular HGB Conc32.7 g/yQPjcmsv19.5-35.6The [facility] Physician GroupComment on above:Performed By: #### MG, CBC, CMP #### [facility] [address] [place] [address] USAMonocytes (Bld) [#/Vol]0.6 10*3/uLNormal0.0-0.8The [facility] Physician GroupComment on above:Performed By: #### MG, CBC, CMP #### [facility] [address] [place] [address] USAMonocytes/100 WBC (Bld)4.9 %Normal.The [facility] Physician GroupComment on above:Performed By: #### MG, CBC, CMP #### [place] [address] USANeutrophils (Bld) [#/Vol]9.8 10*3/uLHigh1.8-7.7The [facility] Physician GroupComment on above:Performed By: #### MG, CBC, CMP #### [place] [address] USANeutrophils/100 WBC (Bld)84.2 %Normal.The [facility] Physician GroupComment on above:Performed By: #### MG, CBC, CMP #### [place] [address] USANRBC%0.0 /100{WBC}Normal0-0.5The [facility] Comment on above:Performed By: #### MG, CBC, CMP #### [place] [address] USAPlatelet mean volume (Bld) [Entitic vol]7.2 fLNormal 6.6-10.1The [facility] Physician GroupComment on above:Performed By: #### MG, CBC, CMP #### [place] [address] USAPlatelets (Bld) [#/Vol]241 10*3/iMRepail524-143Pzd [facility] Physician GroupComment on above:Performed By: #### MG, CBC, CMP #### [place] [address] USARBC (Bld) [#/Vol]3.03 10*6/uLLow3.90-5.60The [facility] Physician GroupComment on above:Performed By: #### MG, CBC, CMP #### [facility] [address] [place] [address] USAWBC (Bld) [#/Vol]11.7 10*3/uLHigh4.1-10.5The [facility] Physician GroupComment on above:Performed By: #### MG, CBC, CMP #### [place] [address] USAWhite Blood Count11.7 [CFU]/mLHigh4.1-10.5The [facility] Physician GroupComment on above:Performed By: #### MG, CBC, CMP #### [place] [address] USAComprehensive Metabolic Panelon 07-79-3953Smgqfeh [Mass/Vol]3.0 g/dLLow3.5-5.7The [facility] Physician GroupComment on above: Performed By: #### MG, CBC, CMP #### [place] [address] USAAlbumin/Globulin [Mass ratio]1.5 {ratio}NormalThe [facility] Physician GroupComment on above:Performed By: #### MG, CBC, CMP #### [place] [address] USAALP [Catalytic activity/Vol]48 U/ZPspylh68-419Wfd [facility] Physician GroupComment on above:Performed By: #### MG, CBC, CMP #### [place] [address] USAALT [Catalytic activity/Vol]17 U/LNormal7-52The [facility] Physician GroupComment on above:Performed By: #### MG, CBC, CMP #### [place] [address] USAAnion gap [Moles/Vol]7.1 mmol/LNormal6.0-15.0The [facility] Physician GroupComment on above:Performed By: #### MG, CBC, CMP #### [place] [address] USAAST [Catalytic activity/Vol]21 U/PKzcnhb23-80Twg [facility] Physician GroupComment on above:Performed By: #### MG, CBC, CMP #### [place] [address] USABilirubin [Mass/Vol]0.3 mg/dLNormal0.3-1.0The [facility] Physician GroupComment on above:Performed By: #### MG, CBC, CMP #### [place] [address] USACalcium [Mass/Vol]8.0 mg/dLLow8.6-10.3The [facility] Physician GroupComment on above:Performed By: #### MG, CBC, CMP #### [place] [address] USAChloride [Moles/Vol]107 mmol/FKvklty95-453Lqr [facility] Physician GroupComment on above:Performed By: #### MG, CBC, CMP #### [place] [address] USACO2 [Moles/Vol]33.2 mmol/LHigh21.0-31.0The [facility] Physician GroupComment on above:Performed By: #### MG, CBC, CMP #### [place] [address] USACreatinine [Mass/Vol]0.65 mg/dLLow0.70-1.30The [facility] Physician GroupComment on above:Performed By: #### MG, CBC, CMP #### [place] [address] USACreatinine Clr Calc Ifbjjuaz66.74NormalThe [facility] Physician GroupComment on above:Performed By: #### MG, CBC, CMP #### [facility] [address] [place] [address] USAGFR/1.73 sq M.predicted MDRD (S/P/Bld) [Vol rate/Area] mL/min/{1.73_m2}NormalThe [facility] Physician GroupComment on above:Performed By: #### MG, CBC, CMP #### [place] [address] USAGlobulin (S) [Mass/Vol]2.0 g/dLNoMission Family Health Center Physician GroupComment on above:Performed By: #### MG, CBC, CMP #### [place] [address] USAGlucose [Mass/Vol]101 mg/sTUyyx17-586Xhb [facility] Physician GroupComment on above:Result Comment: Random Glucose Reference Range is dependent on time and content of last meal. Glucose of more than 200 mg/dL in a nonstressed, ambulatory subject supports the diagnosis of Diabetes Mellitus. ADA recommended reference rangePerformed By: #### MG, CBC, CMP #### [place] [address] USAPotassium [Moles/Vol]4.3 mmol/LNormal3.5-5.1The [facility] Physician GroupComment on above:Result Comment: Hemolysis is present at a level that could interfere with the result. Contact lab if redraw is requiredPerformed By: #### MG, CBC, CMP #### [place] [address] USAProtein [Mass/Vol]5.0 g/dLLow6.4-8.9The [facility] Physician GroupComment on above:Performed By: #### MG, CBC, CMP #### [place] [address] USASodium [Moles/Vol]143 mmol/UJinvhs300-777Qur [facility] Physician GroupComment on above:Performed By: #### MG, CBC, CMP #### [place] [address] USAUrea nitrogen [Mass/Vol]14 mg/dLNormal7-25The [facility] Physician GroupComment on above:Performed By: #### MG, CBC, CMP #### [place] [address] USAGlucose Poct Glucometerson 07-92-1087Mrykjyr [Mass/Vol]94 mg/dLNoMission Family Health Center Physician GroupComment on above:Result Comment: Random Glucose Reference Range is dependent on time and content of last meal. Glucose of more than 200 mg/dL in a nonstressed, ambulatory subject supports the diagnosis of Diabetes Mellitus. PERFORMED BY: [place] [address] PATHOLOGIST INDUSTRIAL ACCOUNTANT VALERIE CAMPBELL M.D.Performed By: #### MG, CBC, CMP #### [place] [address] USAMagnesiumon 36-15-8857Jjgzwpmyd [Mass/Vol]2.2 mg/dLNormal 1.9-2.7The [facility] Physician GroupComment on above:Result Comment: PERFORMED BY: [place] [address] PATHOLOGIST INDUSTRIAL ACCOUNTANT VALERIE CAMPBELL M.D.Performed By: #### MG, CBC, CMP #### [place] [id number] USAProthrombin Time INRon 70-98-3398PES Coag (PPP) [Relative time]0.9 {INR}NormalThe [facility] Physician GroupComment on above:Result Comment: INR Therapeutic Range A) Pre- and Peroperative OAT started two weeks before surgery. NOT HIP SURGERY: 1.5 - 2.5 HIP SURGERY: 2 - 3 B) Primary and secondary prevention of venous THROMBOSIS: 2 - 3 C) Active venous thrombosis, pulmonary embolism and prevention of recurrent venous thrombosis: 2 - 3 D) Prevention of arterial thromboembolism including patients with mechanical heart valves: 3 - 4.5 PERFORMED BY: [place] [id number] PATHOLOGIST INDUSTRIAL ACCOUNTANT VALERIE CAMPBELL M.D.Performed By: #### MG, CBC, CMP #### [address] [address] USAPT Coag (PPP) [Time]9.9 sNormal9.0-12.9The [facility] Physician GroupComment on above:Result Comment: A hematocrit value greater than 55% may lead to inaccurate results in coagulation testing. Patients having hematocrit values >55% require a special collection tube for coagulation studies. Please contact the laboratory at [phone] for redraw instructions.Performed By: #### MG, CBC, CMP #### [place] [address] USAType and Screenon [id number] and Rh group Nom (Bld) Blood group A Rh(D) positiveNormalThe [facility] Physician GroupComment on above: Result Comment: PERFORMED BY: [place] [address] PATHOLOGIST INDUSTRIAL ACCOUNTANT VALERIE CAMPBELL M.D.Complete Blood Count Auto Diffon [id number] (Bld) [#/Vol]0.0 10*3/uLNormal0.0-0.2The [facility] Physician GroupComment on above: Result Comment: PERFORMED BY: [place] [address] PATHOLOGIST INDUSTRIAL ACCOUNTANT VALERIE CAMPBELL M.D.Performed By: #### MG, CBC, CMP #### [place] [address] USABasophils/100 WBC (Bld)0.2 %Normal.The [facility] Physician GroupComment on above:Performed By: #### MG, CBC, CMP #### [place] [address] USAEosinophils (Bld) [#/Vol]0.3 10*3/uLNormal0.0-0.45The [facility] Physician GroupComment on above:Performed By: #### MG, CBC, CMP #### [place] [address] USAEosinophils/100 WBC (Bld)2.2 %Normal.The [facility] Physician GroupComment on above:Performed By: #### MG, CBC, CMP #### [place] [address] USAErythrocyte distribution width (RBC) [Ratio]13.7 %Normal 12.0-14.8The [facility] Physician GroupComment on above:Performed By: #### MG, CBC, CMP #### [place] [address] USAHematocrit (Bld) [Volume fraction]30.8 %Low38.8-50.0The [facility] Physician GroupComment on above:Performed By: #### MG, CBC, CMP #### [facility] [address] [place] [address] USAHemoglobin (Bld) [Mass/Vol]10.3 g/dLLow13.0-17.0The [facility] Physician GroupComment on above:Performed By: #### MG, CBC, CMP #### [facility] [address] [place] [address] USALymphocytes (Bld) [#/Vol]0.9 10*3/uLLow1.00-4.8The [facility] Physician GroupComment on above:Performed By: #### MG, CBC, CMP #### [place] [address] USALymphocytes/100 WBC (Bld)7.6 %Normal.The [facility] Physician GroupComment on above:Performed By: #### MG, CBC, CMP #### [place] [address] USAMCH (RBC) [Entitic mass]33.9 jfKujoxd40.5-35.2The [facility] Physician GroupComment on above:Performed By: #### MG, CBC, CMP #### [place] [address] USAMCV (RBC) [Entitic vol]101.8 tYImfb66.5-101The [facility] Physician GroupComment on above:Performed By: #### MG, CBC, CMP #### [place] [address] USAMean Corpuscular HGB Conc33.3 g/bMOxkuob97.5-35.6The [facility] Physician GroupComment on above:Performed By: #### MG, CBC, CMP #### [place] [address] USAMonocytes (Bld) [#/Vol]0.6 10*3/uLNormal0.0-0.8The [facility] Physician GroupComment on above:Performed By: #### MG, CBC, CMP #### [facility] [address] [place] [address] USAMonocytes/100 WBC (Bld)5.3 %Normal.The [facility] Physician GroupComment on above:Performed By: #### MG, CBC, CMP #### [facility] [address] [place] [address] USANeutrophils (Bld) [#/Vol]10.0 10*3/uLHigh1.8-7.7The [facility] Physician GroupComment on above:Performed By: #### MG, CBC, CMP #### [facility] [address] [place] [address] USANeutrophils/100 WBC (Bld)84.7 %Normal.The [facility] Physician GroupComment on above:Performed By: #### MG, CBC, CMP #### [facility] [address] [place] [address] USANRBC%0.1 /100{WBC}Normal0-0.5The [facility] Comment on above:Performed By: #### MG, CBC, CMP #### [place] [address] USAPlatelet mean volume (Bld) [Entitic vol]7.1 fLNormal 6.6-10.1The [facility] Physician GroupComment on above:Performed By: #### MG, CBC, CMP #### [place] [address] USAPlatelets (Bld) [#/Vol]238 10*3/bFLhdvel654-878Fra [facility] Physician GroupComment on above:Performed By: #### MG, CBC, CMP #### [facility] [address] [place] [address] USARBC (Bld) [#/Vol]3.03 10*6/uLLow3.90-5.60The [facility] Physician GroupComment on above:Performed By: #### MG, CBC, CMP #### [place] [address] USAWBC (Bld) [#/Vol]11.8 10*3/uLHigh4.1-10.5The [facility] Physician GroupComment on above:Performed By: #### MG, CBC, CMP #### [place] [address] USAWhite Blood Count11.8 [CFU]/mLHigh4.1-10.5The [facility] Physician GroupComment on above:Performed By: #### MG, CBC, CMP #### [place] [address] USAComprehensive Metabolic Panelon 80-39-6091Evouhux [Mass/Vol]2.9 g/dLLow3.5-5.7The [facility] Physician GroupComment on above: Performed By: #### [facility] #### [place] [address] USAAlbumin/Globulin [Mass ratio]1.5 {ratio}NormalThe [facility] Physician GroupComment on above:Performed By: #### CUU #### [place] [address] USAALP [Catalytic activity/Vol]49 U/GEadcqf29-572Kzq [facility] Physician GroupComment on above:Performed By: #### CUU #### [place] [address] USAALT [Catalytic activity/Vol]19 U/LNormal7-52The [facility] Physician GroupComment on above:Performed By: #### CUU #### [place] [address] USAAnion gap [Moles/Vol]3.8 mmol/LLow6.0-15.0The [facility] Physician GroupComment on above:Performed By: #### CUU #### [place] [address] USAAST [Catalytic activity/Vol]22 U/KOfitvp50-85Alt [facility] Physician GroupComment on above:Performed By: #### CUU #### [place] [address] USABilirubin [Mass/Vol]0.2 mg/dLLow0.3-1.0The [facility] Physician GroupComment on above:Performed By: #### CUU #### [facility] [address] [place] [address] USACalcium [Mass/Vol]7.9 mg/dLLow8.6-10.3The [facility] Physician GroupComment on above:Performed By: #### CUU #### [facility] [address] [place] [address] USAChloride [Moles/Vol]106 mmol/THfapjz96-455Ofu [facility] Physician GroupComment on above:Performed By: #### CUU #### [facility] [address] [place] [address] USACO2 [Moles/Vol]34.6 mmol/LHigh21.0-31.0The [facility] Physician GroupComment on above:Performed By: #### CUU #### [place] [address] USACreatinine [Mass/Vol]0.69 mg/dLLow0.70-1.30The [facility] Physician GroupComment on above:Performed By: #### CUU #### [facility] [address] [place] [address] USACreatinine Clr Calc Gedmrbqk54.74NoMission [facility] Center Physician GroupComment on above:Performed By: #### CUU #### [facility] [address] [place] [address] USAGFR/1.73 sq M.predicted MDRD (S/P/Bld) [Vol rate/Area] mL/min/{1.73_m2}NormalAdventhealth Winter Park Physician GroupComment on above:Performed By: #### CUU #### [facility] [address] [place] [address] USAGlobulin (S) [Mass/Vol]1.9 g/dLCedars Medical Center Physician GroupComment on above:Performed By: #### CUU #### [facility] [address] [place] [address] USAGlucose [Mass/Vol]107 mg/wZMxib27-521Fcw [facility] Physician GroupComment on above:Result Comment: Random Glucose Reference Range is dependent on time and content of last meal. Glucose of more than 200 mg/dL in a nonstressed, ambulatory subject supports the diagnosis of Diabetes Mellitus. ADA recommended reference rangePerformed By: #### CUU #### [place] [address] USAPotassium [Moles/Vol]3.4 mmol/LLow3.5-5.1The [facility] Physician GroupComment on above:Performed By: #### CUU #### [place] [address] USAProtein [Mass/Vol]4.8 g/dLLow6.4-8.9The [facility] Physician GroupComment on above:Performed By: #### CUU #### [place] [address] USASodium [Moles/Vol]141 mmol/FJwkiqqvd891-193Wwr [facility] Physician GroupComment on above:Performed By: #### CUU #### [place] [address] USAUrea nitrogen [Mass/Vol]12 mg/dLNormal7-25The [facility] Physician GroupComment on above:Performed By: #### CUU #### [place] [address] USAMagnesiumon 92-99-0094Ribxthamb [Mass/Vol]1.6 mg/dLLow 1.9-2.7The [facility] Physician GroupComment on above:Result Comment: PERFORMED BY: [place] [address] PATHOLOGIST INDUSTRIAL ACCOUNTANT VALERIE CAMPBELL M.D.Performed By: #### CUU #### [place] [address] USAXR chest 1V portableon [id number] chest 1V portable [facility] [address] [place] [address] XRay Report Signed Patient: Andrea Michelle MR#: [id number] [birth year] : 1940 Acct:[id number] Age/Sex: 85 / M ADM Date: 07/07/25 Loc: Room: [address] [place] [address] Type: ADM IN Attending Dr: Alessandro Guzman MD Copies to: Alessandro Guzman MD Ordering Provider: Alessandro Guzman MD Date of Service: 07/12/25 XR/XR chest 1V portable: sob Single view chest without comparison HISTORY: Shortness of breath. Mild chronic basilar pleural-parenchymal changes. Right lower rib fixation hardware. No pneumothorax. Cardiac, mediastinal hilar silhouettes are unremarkable. Bilateral shoulder degeneration. XR/XR chest 1V portable IMPRESSION: No acute chest findings. Impression dictated by: Mt Sweeney M.D. 07/12/2025 9:23 AM Dictation Location: [place] [address] Transcribed By: [facility] 07/12/25922 Dictated By: Mt Sweeney DO 07/12/25 0918 Signed By: 07/12/25 0923NormUF [facility] Physician GroupCoagulation Profileon 07-11-2025 aPTT Coag (Bld) [Time]27.2 lVfxiyi59.1-36.5The [facility] Physician [facility] HospitalComment on above:Result Comment: A hematocrit value greater than 55% may lead to inaccurate results in coagulation testing. Patients having hematocrit values >55% require a special collection tube for coagulation studies. Please contact the laboratory at [phone] for redraw instructions. PERFORMED BY: [place] [id number] PATHOLOGIST INDUSTRIAL ACCOUNTANT VALERIE CAMPBELL M.D.Performed By: #### MG, CBC, CMP #### [place] [address] USAINR Coag (PPP) [Relative time]0.9 {INR}NormalThe [facility] Physician GroupComment on above:Result Comment: INR Therapeutic Range A) Pre- and Peroperative OAT started two weeks before surgery. NOT HIP SURGERY: 1.5 - 2.5 HIP SURGERY: 2 - 3 B) Primary and secondary prevention of venous THROMBOSIS: 2 - 3 C) Active venous thrombosis, pulmonary embolism and prevention of recurrent venous thrombosis: 2 - 3 D) Prevention of arterial thromboembolism including patients with mechanical heart valves: 3 - 4.5Performed By: #### MG, CBC, CMP #### [facility] [address] [place] [address] USAPT Coag (PPP) [Time]9.9 sNormal9.0-12.9The [facility] Physician GroupComment on above:Result Comment: A hematocrit value greater than 55% may lead to inaccurate results in coagulation testing. Patients having hematocrit values >55% require a special collection tube for coagulation studies. Please contact the laboratory at [phone] for redraw instructions.Performed By: #### MG, CBC, CMP #### [place] [address] USAComplete Blood Count Auto Diffon [id number] (Bld) [#/Vol]0.0 10*3/uLNormal0.0-0.2The [facility] Physician GroupComment on above: Result Comment: PERFORMED BY: [place] [address] PATHOLOGIST INDUSTRIAL ACCOUNTANT VALERIE CAMPBELL M.D.Performed By: #### MG, CBC, CMP #### [place] [address] USABasophils/100 WBC (Bld)0.3 %Normal.The [facility] Physician GroupComment on above:Performed By: #### MG, CBC, CMP #### [place] [address] USAEosinophils (Bld) [#/Vol]0.4 10*3/uLNormal0.0-0.45The [facility] Physician GroupComment on above:Performed By: #### MG, CBC, CMP #### [place] [address] USAEosinophils/100 WBC (Bld)3.8 %Normal.The [facility] Physician GroupComment on above:Performed By: #### MG, CBC, CMP #### [place] [address] USAErythrocyte distribution width (RBC) [Ratio]13.7 %Normal 12.0-14.8The [facility] Physician GroupComment on above:Performed By: #### MG, CBC, CMP #### [place] [address] USAHematocrit (Bld) [Volume fraction]30.2 %Low38.8-50.0The [facility] Physician GroupComment on above:Performed By: #### MG, CBC, CMP #### [place] [address] USAHemoglobin (Bld) [Mass/Vol]10.2 g/dLLow13.0-17.0The [facility] Physician GroupComment on above:Performed By: #### MG, CBC, CMP #### [place] [address] USALymphocytes (Bld) [#/Vol]0.8 10*3/uLLow1.00-4.8The [facility] Physician GroupComment on above:Performed By: #### MG, CBC, CMP #### [place] [address] USALymphocytes/100 WBC (Bld)7.4 %Normal.The [facility] Physician GroupComment on above:Performed By: #### MG, CBC, CMP #### [place] [address] USAMCH (RBC) [Entitic mass]34.0 raDrdfrm44.5-35.2The [facility] Physician GroupComment on above:Performed By: #### MG, CBC, CMP #### [place] [address] USAMCV (RBC) [Entitic vol]100.9 fTUqpyoh23.5-101The [facility] Physician GroupComment on above:Performed By: #### MG, CBC, CMP #### [place] [address] USAMean Corpuscular HGB Conc33.7 g/wXLmqmae84.5-35.6The [facility] Physician GroupComment on above:Performed By: #### MG, CBC, CMP #### [facility] [address] [place] [address] USAMonocytes (Bld) [#/Vol]0.7 10*3/uLNormal0.0-0.8The [facility] Physician GroupComment on above:Performed By: #### MG, CBC, CMP #### [facility] [address] [place] [address] USAMonocytes/100 WBC (Bld)6.3 %Normal.The [facility] Physician GroupComment on above:Performed By: #### MG, CBC, CMP #### [place] [address] USANeutrophils (Bld) [#/Vol]8.7 10*3/uLHigh1.8-7.7The [facility] Physician GroupComment on above:Performed By: #### MG, CBC, CMP #### [place] [address] USANeutrophils/100 WBC (Bld)82.2 %Normal.The [facility] Physician GroupComment on above:Performed By: #### MG, CBC, CMP #### [place] [address] USANRBC%0.0 /100{WBC}Normal0-0.5The [facility] Physician Group Comment on above:Performed By: #### MG, CBC, CMP #### [facility] [address] [place] [address] USAPlatelet mean volume (Bld) [Entitic vol]7.1 fLNormal 6.6-10.1The [facility] Physician GroupComment on above:Performed By: #### MG, CBC, CMP #### [place] [address] USAPlatelets (Bld) [#/Vol]249 10*3/zEFnrrfe641-935Car [facility] Physician GroupComment on above:Performed By: #### MG, CBC, CMP #### [place] [address] USARBC (Bld) [#/Vol]2.99 10*6/uLLow3.90-5.60The [facility] Physician GroupComment on above:Performed By: #### MG, CBC, CMP #### [facility] [address] [place] [address] USAWBC (Bld) [#/Vol]10.6 10*3/uLHigh4.1-10.5The [facility] Physician GroupComment on above:Performed By: #### MG, CBC, CMP #### [place] [address] USAWhite Blood Count10.6 [CFU]/mLHigh4.1-10.5The [facility] Physician GroupComment on above:Performed By: #### MG, CBC, CMP #### [place] [address] USAComprehensive Metabolic Panelon 66-13-4262Ggytocb [Mass/Vol]2.9 g/dLLow3.5-5.7The [facility] Physician GroupComment on above: Performed By: #### MG, CBC, CMP #### [place] [address] USAAlbumin/Globulin [Mass ratio]1.5 {ratio}NormalThe [facility] Physician GroupComment on above:Performed By: #### MG, CBC, CMP #### [place] [address] USAALP [Catalytic activity/Vol]48 U/VQvdnmv80-901Hbh [facility] Physician GroupComment on above:Performed By: #### MG, CBC, CMP #### [place] [address] USAALT [Catalytic activity/Vol]13 U/LNormal7-52The [facility] Physician GroupComment on above:Performed By: #### MG, CBC, CMP #### [place] [address] USAAnion gap [Moles/Vol]8.5 mmol/LNormal6.0-15.0The [facility] Physician GroupComment on above:Performed By: #### MG, CBC, CMP #### [place] [address] USAAST [Catalytic activity/Vol]17 U/MJpcuod02-58Wbf [facility] Physician GroupComment on above:Performed By: #### MG, CBC, CMP #### [place] [address] USABilirubin [Mass/Vol]0.3 mg/dLNormal0.3-1.0The [facility] Physician GroupComment on above:Performed By: #### MG, CBC, CMP #### [place] [address] USACalcium [Mass/Vol]7.9 mg/dLLow8.6-10.3The [facility] Physician GroupComment on above:Performed By: #### MG, CBC, CMP #### [place] [address] USAChloride [Moles/Vol]109 mmol/DZhhp92-022[facility] Physician GroupComment on above:Performed By: #### MG, CBC, CMP #### [place] [address] USACO2 [Moles/Vol]33.1 mmol/LHigh21.0-31.0The [facility] Physician GroupComment on above:Performed By: #### MG, CBC, CMP #### [place] [address] USACreatinine [Mass/Vol]0.69 mg/dLLow0.70-1.30The [facility] Physician GroupComment on above:Performed By: #### MG, CBC, CMP #### [place] [address] USACreatinine Clr Calc Xfcalflo59.25NormalThe [facility] Physician GroupComment on above:Performed By: #### MG, CBC, CMP #### [place] [address] USAGFR/1.73 sq M.predicted MDRD (S/P/Bld) [Vol rate/Area] mL/min/{1.73_m2}NormalThe [facility] Physician GroupComment on above:Performed By: #### MG, CBC, CMP #### [place] [address] USAGlobulin (S) [Mass/Vol]2.0 g/dLNormalThe [facility] Physician GroupComment on above:Performed By: #### MG, CBC, CMP #### [place] [address] USAGlucose [Mass/Vol]95 mg/hEFhyiwx92-803Brq [facility] Physician GroupComment on above:Result Comment: Random Glucose Reference Range is dependent on time and content of last meal. Glucose of more than 200 mg/dL in a nonstressed, ambulatory subject supports the diagnosis of Diabetes Mellitus. ADA recommended reference rangePerformed By: #### MG, CBC, CMP #### [place] [address] USAPotassium [Moles/Vol]3.6 mmol/LNormal3.5-5.1The [facility] Physician GroupComment on above:Performed By: #### MG, CBC, CMP #### [place] [address] USAProtein [Mass/Vol]4.9 g/dLLow6.4-8.9The [facility] Physician GroupComment on above:Performed By: #### MG, CBC, CMP #### [place] [address] USASodium [Moles/Vol]147 mmol/RKzbv209-617Jpn [facility] Physician GroupComment on above:Performed By: #### MG, CBC, CMP #### [place] [address] USAUrea nitrogen [Mass/Vol]11 mg/dLNormal7-25The [facility] Physician GroupComment on above:Performed By: #### MG, CBC, CMP #### [place] [address] USAECH echo transthoracicon [id number] echo transthoracic [facility] [place] [address] [place] [address] Echocardiogram Signed Patient: Andrea Michelle MR#: [id number] [birth year] : 1940 Acct:[id number] Age/Sex: 85 / M ADM Date: 07/07/25 Loc: 4 Room: 9V2840-1 Type: ADM IN Attending Dr: Kyle Cruz DO Ordering Provider: Susy Snowden MD, [facility] Date of Service: 07/11/2506/25/903 [facility] transthoracic: bradycardia Copies to: Susy Snowden MD, [facility] BSA: 1.8 m2 BP: 146/108 mmHg HR: 84 Reason For Study: bradycardia History: COPD,Hyperlipidemia,Hypertension,Smoker,DVT Interpretation Summary The left ventricular size, thickness and function are normal Ejection Fraction = 55-60%. A variety of Doppler measurements indicate impaired left ventricular relaxation, which is associated with grade I/IV or mild diastolic dysfunction. There is no prior echocardiogram noted for this patient. Procedure/Quality: A two-dimensional transthoracic echocardiogram with color flow and Doppler was performed. The study was technically fair in quality. There is no prior echocardiogram noted for this patient. Left Ventricle: The left ventricular size, thickness and function are normal. Ejection Fraction = 55-60%. A variety of Doppler measurements indicate impaired left ventricular relaxation, which is associated with grade I/IV or mild diastolic dysfunction. Left Atrium: The left atrium appears normal in size. The atrial septum appears normal. Right Atrium: The right atrium appears normal in size. Right Ventricle: The right ventricular size, thickness and function are normal. Aortic Valve: The aortic valve is trileaflet. The aortic valve is mildly calcified. Mitral Valve: The mitral valve is moderately sclerotic. There is moderate mitral annular calcification. Tricuspid Valve: The tricuspid valve is normal in structure. Pulmonic Valve: The pulmonic valve is not well visualized. Arteries: The aortic root is normal size. Pericardium/Pleura: No pericardial effusion seen. There is no pleural effusion. IVC/Hepatic Veins: The IVC is normal in size with an inspiratory collapse of greater then 50%, suggesting normal right atrial pressure. Miscellaneous: No thrombus, vegetation or mass is seen. Measurements with Normals IVSd: 0.98 cm (0.7-1.1 cm)LVIDd: 4.9 cm (3.7-5.4 cm) LVPWd: 1.1 cm (0.7-1.1 cm)LVIDs: 3.4 cm (2.3-3.6 cm) LA dimension: 3.8 cm(2.3-4.0 cm)Ao root diam: 3.2 cm(2.0-3.6 cm) Doppler with Normals RVSP(TR): 18.8 mmHg (18-35mmHg) LV V1 max: 94.0 cm/sec (0.7-1.7m/s)MV E max roberta: 76.4 cm/sec(0.8-1.3m/s) MV A max roberta: 135.3 cm/sec(0.0-0.0m/s) MV E/A: 0.56 (<1.5) MMode/2D Measurements Calculations TAPSE: 1.9 cm FS: 30.2 % Ao root area: LVOT diam: 1.9 cm RV S Roberta: EDV(Teich): 8.1 cm2 LVOT area: 21.2 cm/sec 110.4 ml 2.9 cm2 ESV(Teich): 47.1 ml EF(Teich): 57.4 % __ LVLd ap4: 6.8 cm SV(MOD-sp4): EDV(MOD-sp4): 33.4 ml 56.3 ml LVLs ap4: 5.8 cm ESV(MOD-sp4): 22.9 ml EF(MOD-sp4): 59.3 % Doppler Measurements Calculations MV dec time: MV V2 max: E/E' lat: 9.6 MV dec slope: 0.15 sec 135.3 cm/sec E/E' med: 8.9 504.9 cm/sec2 MV max P.3 mmHg MV V2 mean: 63.9 cm/sec MV mean P.0 mmHg MV V2 VTI: 24.4 cm MVA(VTI): 2.8 cm2 __ Ao V2 max: LV V1 max PG: TV max PG: TR max roberta: 158.5 cm/sec 3.5 mmHg 14.0 mmHg 185.5 cm/sec Ao max PG: LV V1 mean PG: TR max P.8 mmHg 10.1 mmHg 1.8 mmHg RAP systole: 5.0 mmHg Ao mean PG: LV V1 mean: 5.5 mmHg 62.8 cm/sec Ao V2 mean: LV V1 VTI: 23.4 cm 112.3 cm/sec Ao V2 VTI: 31.4 cm REY(I,D): 2.2 cm2 REY(V,D): 1.7 cm2 Transcribed By: SCV Performed At: 07/11/25 1114 Signed By: Susy Snowden MD, [facility] 07/11/25 1646[facility] Physician GroupMagnesiumon 89-66-1125Zoqeernqq [Mass/Vol]1.6 mg/dLLow1.9-2.7The [facility] Physician [facility] HospitalComment on above:Result Comment: PERFORMED BY: [place] [address] PATHOLOGIST INDUSTRIAL ACCOUNTANT VALERIE CAMPBELL M.D.Performed By: #### MG, CBC, CMP #### [place] [address] USAComplete Blood Count Auto Diffon [id number] (Bld) [#/Vol]0.0 10*3/uLNormal0.0-0.2The [facility] Physician GroupComment on above: Result Comment: PERFORMED BY: [place] [address] PATHOLOGIST INDUSTRIAL ACCOUNTANT VALERIE CAMPBELL M.D.Performed By: #### MG, CBC, CMP #### [facility] [address] [place] [address] USABasophils/100 WBC (Bld)0.2 %Normal.The [facility] Physician GroupComment on above:Performed By: #### MG, CBC, CMP #### [place] [address] USAEosinophils (Bld) [#/Vol]0.4 10*3/uLNormal0.0-0.45The [facility] Physician GroupComment on above:Performed By: #### MG, CBC, CMP #### [place] [address] USAEosinophils/100 WBC (Bld)4.2 %Normal.The [facility] Physician GroupComment on above:Performed By: #### MG, CBC, CMP #### [place] [address] USAErythrocyte distribution width (RBC) [Ratio]13.4 %Normal 12.0-14.8The [facility] Physician GroupComment on above:Performed By: #### MG, CBC, CMP #### [place] [address] USAHematocrit (Bld) [Volume fraction]28.0 %Low38.8-50.0The [facility] Physician GroupComment on above:Performed By: #### MG, CBC, CMP #### [place] [address] USAHemoglobin (Bld) [Mass/Vol]9.7 g/dLLow13.0-17.0The [facility] Physician GroupComment on above:Performed By: #### MG, CBC, CMP #### [place] [address] USALymphocytes (Bld) [#/Vol]0.9 10*3/uLLow1.00-4.8The [facility] Physician GroupComment on above:Performed By: #### MG, CBC, CMP #### [place] [address] USALymphocytes/100 WBC (Bld)9.9 %Normal.The [facility] Physician GroupComment on above:Performed By: #### MG, CBC, CMP #### [place] [address] USAMCH (RBC) [Entitic mass]34.5 fgVqazwi64.5-35.2The [facility] Physician GroupComment on above:Performed By: #### MG, CBC, CMP #### [facility] [address] [place] [address] USAMCV (RBC) [Entitic vol]99.8 oZYdnvwv80.5-101The [facility] Physician GroupComment on above:Performed By: #### MG, CBC, CMP #### [facility] [address] [place] [address] USAMean Corpuscular HGB Conc34.6 g/rLTulbwm08.5-35.6The [facility] Physician GroupComment on above:Performed By: #### MG, CBC, CMP #### [facility] [address] [place] [address] USAMonocytes (Bld) [#/Vol]0.6 10*3/uLNormal0.0-0.8The [facility] Physician GroupComment on above:Performed By: #### MG, CBC, CMP #### [facility] [address] [place] [address] USAMonocytes/100 WBC (Bld)6.9 %Normal.The [facility] Physician GroupComment on above:Performed By: #### MG, CBC, CMP #### [facility] [address] [place] [address] USANeutrophils (Bld) [#/Vol]6.8 10*3/uLNormal1.8-7.7The [facility] Physician GroupComment on above:Performed By: #### MG, CBC, CMP #### [facility] [address] [place] [address] USANeutrophils/100 WBC (Bld)78.8 %Normal.The [facility] Physician GroupComment on above:Performed By: #### MG, CBC, CMP #### [facility] [address] [place] [address] USANRBC%0.1 /100{WBC}Normal0-0.5The [facility] Physician Group Comment on above:Performed By: #### MG, CBC, CMP #### [facility] [address] [place] [address] USAPlatelet mean volume (Bld) [Entitic vol]6.6 fLNormal 6.6-10.1The [facility] Physician GroupComment on above:Performed By: #### MG, CBC, CMP #### [place] [address] USAPlatelets (Bld) [#/Vol]231 10*3/sZCyfidm265-094Auf [facility] Physician GroupComment on above:Performed By: #### MG, CBC, CMP #### [place] [address] USARBC (Bld) [#/Vol]2.80 10*6/uLLow3.90-5.60The [facility] Physician GroupComment on above:Performed By: #### MG, CBC, CMP #### [place] [address] USAWBC (Bld) [#/Vol]8.6 10*3/uLNormal4.1-10.5The [facility] Physician GroupComment on above:Performed By: #### MG, CBC, CMP #### [place] [address] USAWhite Blood Count8.6 [CFU]/mLNormal4.1-10.5The [facility] Physician GroupComment on above:Performed By: #### MG, CBC, CMP #### [place] [address] USAComprehensive Metabolic Panelon 33-48-1637Nkweqkd [Mass/Vol]2.8 g/dLLow3.5-5.7The [facility] Physician GroupComment on above: Performed By: #### MG, CBC, CMP #### [place] [address] USAAlbumin/Globulin [Mass ratio]1.5 {ratio}NormalThe [facility] Physician GroupComment on above:Performed By: #### MG, CBC, CMP #### [place] [address] USAALP [Catalytic activity/Vol]46 U/JMonifz88-735Aee [facility] Physician GroupComment on above:Performed By: #### MG, CBC, CMP #### [address] [place] [address] USAALT [Catalytic activity/Vol]11 U/LNormal7-52The [facility] Physician GroupComment on above:Performed By: #### MG, CBC, CMP #### [facility] [address] [place] [address] USAAnion gap [Moles/Vol]6.6 mmol/LNormal6.0-15.0The [facility] Physician GroupComment on above:Performed By: #### MG, CBC, CMP #### [facility] [address] [place] [address] USAAST [Catalytic activity/Vol]15 U/EUqlogu19-92Svh [facility] Physician GroupComment on above:Performed By: #### MG, CBC, CMP #### [place] [address] USABilirubin [Mass/Vol]0.2 mg/dLLow0.3-1.0The [facility] Physician GroupComment on above:Performed By: #### MG, CBC, CMP #### [place] [address] USACalcium [Mass/Vol]7.6 mg/dLLow8.6-10.3The [facility] Physician GroupComment on above:Performed By: #### MG, CBC, CMP #### [place] [address] USAChloride [Moles/Vol]112 mmol/GKpib24-268Bsm [facility] Physician GroupComment on above:Performed By: #### MG, CBC, CMP #### [place] [address] USACO2 [Moles/Vol]30.1 mmol/NYkvigs46.0-31.0The [facility] Physician GroupComment on above:Performed By: #### MG, CBC, CMP #### [facility] [address] [place] [address] USACreatinine [Mass/Vol]0.85 mg/dLNormal0.70-1.30The [facility] Physician GroupComment on above:Performed By: #### MG, CBC, CMP #### [place] [address] USACreatinine Clr Calc Sgwqrspx61.63NoMission Family Health Center Physician GroupComment on above:Performed By: #### MG, CBC, CMP #### [place] [address] USAGFR/1.73 sq M.predicted MDRD (S/P/Bld) [Vol rate/Area] mL/min/{1.73_m2}NormalThe [facility] Physician GroupComment on above:Performed By: #### MG, CBC, CMP #### [place] [address] USAGlobulin (S) [Mass/Vol]1.9 g/dLCedars Medical Center Physician GroupComment on above:Performed By: #### MG, CBC, CMP #### [place] [address] USAGlucose [Mass/Vol]114 mg/wPZpjd89-050Mif [facility] Physician GroupComment on above:Result Comment: Random Glucose Reference Range is dependent on time and content of last meal. Glucose of more than 200 mg/dL in a nonstressed, ambulatory subject supports the diagnosis of Diabetes Mellitus. ADA recommended reference rangePerformed By: #### MG, CBC, CMP #### [place] [address] USAPotassium [Moles/Vol]3.7 mmol/LNormal3.5-5.1The [facility] Physician GroupComment on above:Performed By: #### MG, CBC, CMP #### [place] [address] USAProtein [Mass/Vol]4.7 g/dLLow6.4-8.9The [facility] Physician GroupComment on above:Performed By: #### MG, CBC, CMP #### [place] [address] USASodium [Moles/Vol]145 mmol/RHixuwc371-737Adl [facility] Physician GroupComment on above:Performed By: #### MG, CBC, CMP #### [place] [address] USAUrea nitrogen [Mass/Vol]33 mg/dLHigh7-25The [facility] Physician GroupComment on above:Performed By: #### MG, CBC, CMP #### [place] [address] USAMagnesiumon 76-38-8456Wcihtwied [Mass/Vol]1.4 mg/dLLow 1.9-2.7The [facility] Physician GroupComment on above:Result Comment: PERFORMED BY: [place] [address] PATHOLOGIST INDUSTRIAL ACCOUNTANT VALERIE CAMPBELL M.D.Performed By: #### MG, CBC, CMP #### [place] [address] USABasic Metabolic Panelon 10-78-1736Kwdvg gap [Moles/Vol]9.1 mmol/LNormal6.0-15.0The [facility] Physician GroupComment on above:Performed By: #### BMP #### [place] [address] USACalcium [Mass/Vol]7.5 mg/dLLow8.6-10.3The [facility] Physician GroupComment on above:Performed By: #### BMP #### [place] [address] USAChloride [Moles/Vol]115 mmol/EEypx07-112Zjq [facility] Physician GroupComment on above:Performed By: #### BMP #### [place] [address] USACO2 [Moles/Vol]27.6 mmol/VWyvwjv11.0-31.0The [facility] Physician GroupComment on above:Performed By: #### BMP #### [place] [address] USACreatinine [Mass/Vol]1.10 mg/dLAbnormal0.70-1.30The [facility] Physician GroupComment on above:Performed By: #### BMP #### [place] [address] USACreatinine Clr Calc Uptuekfu92.58NormalThe [facility] Physician GroupComment on above:Result Comment: PERFORMED BY: [place] [address] PATHOLOGIST INDUSTRIAL ACCOUNTANT VALERIE CAMPBELL M.D.Performed By: #### BMP #### [place] [address] USAGFR/1.73 sq M.predicted MDRD (S/P/Bld) [Vol rate/Area] mL/min/{1.73_m2}NormalThe [facility] Physician GroupComment on above:Performed By: #### BMP #### [place] [address] USAGlucose [Mass/Vol]107 mg/mTGkdm73-486Prm [facility] Physician GroupComment on above:Result Comment: Random Glucose Reference Range is dependent on time and content of last meal. Glucose of more than 200 mg/dL in a nonstressed, ambulatory subject supports the diagnosis of Diabetes Mellitus. ADA recommended reference rangePerformed By: #### BMP #### [place] [address] USAPotassium [Moles/Vol]3.7 mmol/LNormal3.5-5.1The [facility] Physician GroupComment on above:Performed By: #### BMP #### [place] [address] USASodium [Moles/Vol]148 mmol/PBvqz190-058Ykr [facility] Physician GroupComment on above:Performed By: #### BMP #### [place] [address] USAUrea nitrogen [Mass/Vol]68 mg/dLHigh7-25The [facility] Physician GroupComment on above:Performed By: #### BMP #### [place] [address] USAStool Occult Blood (Guaiac)on 05-43-3047Ypxcb Occult Blood (Guaiac)Occult Blood Positive for Occult Blood by Guaiac Methodology Reference range = Negative PERFORMED BY: [place] [address] PATHOLOGIST INDUSTRIAL ACCOUNTANT VALERIE CAMPBELL M.D.NormalThe [facility] Physician GroupComment on above: Performed By: #### MG, CBC, CMP #### [facility] [address] [place] [address] USABasic Metabolic Panelon 27-47-2511Kylgt gap [Moles/Vol] 14.0 mmol/LNormal6.0-15.0The [facility] Physician GroupComment on above:Performed By: #### PHOS, BMP #### [place] [address] USACalcium [Mass/Vol]6.8 mg/dLLow8.6-10.3The [facility] Physician GroupComment on above:Performed By: #### PHOS, BMP #### [place] [address] USAChloride [Moles/Vol]110 mmol/QNmfm36-582Nge [facility] Physician GroupComment on above:Performed By: #### PHOS, BMP #### [place] [address] USACO2 [Moles/Vol]23.3 mmol/COhsegk01.0-31.0The [facility] Physician GroupComment on above:Performed By: #### PHOS, BMP #### [place] [address] USACreatinine [Mass/Vol]3.39 mg/dLHigh0.70-1.30The [facility] Physician GroupComment on above:Performed By: #### PHOS, BMP #### [place] [address] USACreatinine Clr Calc Vciqrxva40.49NormalThe [facility] Physician GroupComment on above:Performed By: #### PHOS, BMP #### [place] [address] USAGFR/1.73 sq M.predicted MDRD (S/P/Bld) [Vol rate/Area] 17.149 mL/min/{1.73_m2}NormalThe [facility] Physician GroupComment on above: Performed By: #### PHOS, BMP #### [place] [address] USAGlucose [Mass/Vol]94 mg/nEMjohjr62-722Kgk [facility] Physician GroupComment on above:Result Comment: Random Glucose Reference Range is dependent on time and content of last meal. Glucose of more than 200 mg/dL in a nonstressed, ambulatory subject supports the diagnosis of Diabetes Mellitus. ADA recommended reference rangePerformed By: #### PHOS, BMP #### [place] [address] USAPotassium [Moles/Vol]3.3 mmol/LLow3.5-5.1The [facility] Physician GroupComment on above:Performed By: #### PHOS, BMP #### [place] [address] USASodium [Moles/Vol]144 mmol/QYdenyb648-316Jbk [facility] Physician GroupComment on above:Performed By: #### PHOS, BMP #### [place] [address] USAUrea nitrogen [Mass/Vol]126 mg/dLHigh7-25The [facility] Physician GroupComment on above:Performed By: #### PHOS, BMP #### [place] [address] USAHemogram CBC Without Diffon 17-80-6300Ufdqmadyjkx distribution width (RBC) [Ratio]13.7 %Tgtkiq42.0-14.8The [facility] Physician GroupComment on above:Performed By: #### MG, CBC, CMP #### [place] [address] USAHematocrit (Bld) [Volume fraction]34.4 %Low38.8-50.0The [facility] Physician GroupComment on above:Performed By: #### MG, CBC, CMP #### [place] [address] USAHemoglobin (Bld) [Mass/Vol]11.8 g/dLLow13.0-17.0The [facility] Physician GroupComment on above:Performed By: #### MG, CBC, CMP #### [address] (RBC) [Entitic mass]33.7 rxUsqndl90.5-35.2The [facility] Physician GroupComment on above:Performed By: #### MG, CBC, CMP #### [address] (RBC) [Entitic vol]97.9 xAQzfimu96.5-101The [facility] Physician GroupComment on above:Performed By: #### MG, CBC, CMP #### [place] [address] USAMean Corpuscular HGB Conc34.4 g/fTFrdtkj16.5-35.6The [facility] Physician GroupComment on above:Performed By: #### MG, CBC, CMP #### [place] [address] USAPlatelet mean volume (Bld) [Entitic vol]6.9 fLNormal 6.6-10.1The [facility] Physician GroupComment on above:Result Comment: PERFORMED BY: [place] [address] PATHOLOGIST INDUSTRIAL ACCOUNTANT VALERIE CAMPBELL M.D.Performed By: #### MG, CBC, CMP #### [place] [address] USAPlatelets (Bld) [#/Vol]254 10*3/oRHwodxi680-911Fna [facility] Physician GroupComment on above:Performed By: #### MG, CBC, CMP #### [place] [address] USARBC (Bld) [#/Vol]3.51 10*6/uLLow3.90-5.60The [facility] Physician GroupComment on above:Performed By: #### MG, CBC, CMP #### [address] [place] [address] USAWhite Blood Count8.3 [CFU]/mLNormal4.1-10.5The [facility] Physician GroupComment on above:Performed By: #### MG, CBC, CMP #### [place] [address] USAPhosphoruson 16-12-7250Gujhtypbc [Mass/Vol]5.4 mg/dLHigh 2.5-4.5The [facility] Physician GroupComment on above:Result Comment: PERFORMED BY: [place] [address] PATHOLOGIST INDUSTRIAL ACCOUNTANT VALERIE CAMPBELL M.D.Performed By: #### PHOS, BMP #### [place] [address] USABasophils Auto (Bld) [#/Vol]Ordered By: Sunil Calvillo on 83-74-5358Reafhcdtt (Bld) [#/Vol]0.0 10 3/uL0.0-0.1FTrinity Health System East CampusBasophils/100 WBC Auto (Bld)Ordered By: Sunil Calvillo on 07-07-2025 Basophils/100 WBC (Bld)0.3 %0.2-2.0[facility] Medical CenterClostridium Difficileon 98-24-5885Nmpyhpzcypo DifficileNegativeNormalNegativeThe [facility] Physician [facility] HospitalComment on above:Order Comment: > or = to 3 loose/watery stools in the last 24 HRS? Y Is patient on promotility agents or tube feeding? N Comment if stool is wateryResult Comment: Testing performed by RT-PCR PERFORMED BY: [place] [address] PATHOLOGIST INDUSTRIAL ACCOUNTANT VALERIE CAMPBELL M.D.Performed By: #### CDT #### [place] [address] [place] #### LCSC SS #### [facility] ,Eosinophils/100 WBC Auto (Bld)Ordered By: Sunil Calvillo on 07-07-2025 Eosinophils/100 WBC (Bld)1.2 %0.9-7.0[facility] Erythrocyte distribution width Auto (RBC) [Ratio]Ordered By: Sunil Calvillo on 89-57-6242Qhdssutjinj distribution width (RBC) [Ratio]12.8 %11.0-15.0[facility] Medical CenterGlomerular filtration rate (GFR) estimation in non- AmericanOrdered By: Sunil Calvillo on 65-41-8347VKY/1.73 sq M.predicted among non-blacks MDRD (S/P/Bld) [Vol rate/Area]6 mL/min/{1.73_m2}Low>=60 mL/min/1.73m 2FTrinity Health System East CampusHematocrit Auto (Bld) [Volume fraction]Ordered By: Sunil Calvillo on 26-52-1407Svirilavhl (Bld) [Volume fraction]33.1 %Low42.0-54.0[facility] Medical CenterHemoglobin [Mass/volume] in BloodOrdered By: Sunil Calvillo on 16-87-4909Yvsvsejnpz (Bld) [Mass/Vol]12.0 g/dLLow14.0-18.0[facility] Medical CenterLaboratory - Chemistry and Chemistry - challengeOrdered By: Maggie Johnson on 07-07-2025 Bilirubin Ql (U)SMALLAbnormalNEGATIVESumma Health Wadsworth - Rittman Medical CenterGlucose (U) [Mass/Vol]NegativeNEGATIVESumma Health Wad[facility] - R[facility] Medical CenterKetones Ql (U) TRACE mg/dLAbnormalNEGMercy Health Clermont HospitalpH (U)5.0 [pH] 5.0-9.0[facility] Hospitalpecific gravity (U) [Rel density]1.020 1.005-1.025[facility] Medical CenterUrobilinogen Qn (U)0.2 {India'U}/dL0.2-1.0[facility] CenterLaboratory - Chemistry and Chemistry - challengeOrdered By: Sunil Calvillo on 19-11-5839Ahwmwv (U) [Moles/Vol]12 mmol/XMhe51-44ArsakmseeSumma Health Wadsworth - Rittman Medical CenterCalcium [Mass/Vol] 6.9 mg/dLLow8.5-10.1FTrinity Health System East CampusChloride [Moles/Vol]101 mmol/C50-022ShitsoxzjSumma Health Wadsworth - Rittman Medical CenterCO2 [Moles/Vol]15.2 mmol/LLow 21.0-32.0[facility] Medical CenterCreatinine [Mass/Vol]8.04 mg/dL Critically high0.70-1.30[facility] Medical CenterComment on above: RESULTS CALLED TO GAMALIEL SCHERER RN @BY aMrgaux Christian at 0634GFR/1.73 sq M.predicted MDRD (S/P/Bld) [Vol rate/Area]8 mL/min/{1.73_m2}Low>=60 mL/min/1.73m 2FTrinity Health System East CampusGlucose [Mass/Vol]157 mg/zOXprk58-618JmsqnidxwSumma Health Wadsworth - Rittman Medical CenterPotassium [Moles/Vol]3.0 mmol/LLow3.5-5.1FUniversity Hospitals Portage Medical Centerodium [Moles/Vol]134 mmol/LMpq774-508BfjwsrhjiSumma Health Wadsworth - Rittman Medical CenterUrea nitrogen [Mass/Vol]172.0 mg/dLCritically high7.0-18.0 [facility] Medical CenterComment on above:RESULTS CALLED TO GAMALIEL SCHERER RN @BY Margaux Christian at 0634Urea nitrogen/Creatinine [Mass ratio]21.4 mg/mgSumma Health Wadsworth - Rittman Medical CenterLaboratory - Hematology and Cell countsOrdered By: Sunil Calvillo on 11-30-6110Bwzfeora granulocytes/100 WBC (Bld)0.2 %0.0-0.5FTrinity Health System East CampusLaboratory - Specimen informationOrdered By: Maggie Johnson on 62-32-6111Erezvfydgx (U)CLEARCLEAR [facility] CenterColor (U)YELLOWYELLOWSumma Health Wadsworth - Rittman Medical CenterLaboratory - UrinalysisOrdered By: Maggei Johnson on 75-10-6156Brlaqlm casts LM Ql (Urine sed)FEWSumma Health Wadsworth - Rittman Medical CenterLeukocyte esterase Test strip Ql (U)SMALLAbnormalNEGMercy Health Clermont HospitalMucus Ql (Urine sed)NONE SEENNONE SEENSumma Health Wadsworth - Rittman Medical CenterNitrite Ql (U) NegativeNEGATIVESumma Health Wadsworth - Rittman Medical CenterProtein Ql (U)30 mg/dLAbnormal NEG/TRACESumma Health Wadsworth - Rittman Medical CenterLeukocytes [#/volume] corrected for nucleated erythrocytes in Blood by Automated counOrdered By: Sunil Calvillo on 41-56-3046XYU corrected for nucl RBC Auto (Bld) [#/Vol]10.0 10 3/uL4.0-11.0 [facility] Medical CenterLymphocytes Auto (Bld) [#/Vol]Ordered By: Sunil Calvillo on 02-51-8624Icdcssjkpyg (Bld) [#/Vol]0.5 10 3/uLLow1.2-3.8[facility] Medical CenterLymphocytes/100 WBC Auto (Bld)Ordered By: Sunil Calvillo on 79-63-1933Azwgrlvgxns/100 WBC (Bld)5.2 %Low20.5-60.0[facility] Medical CenterMCH Auto (RBC) [Entitic mass]Ordered By: Sunil Calvillo on 59-12-0682RYS (RBC) [Entitic mass]34.5 kiIpgp09.9-34.0[facility] Medical CenterMCHC Auto (RBC) [Mass/Vol]Ordered By: Sunil Calvillo on 58-38-8894CBVZ (RBC) [Mass/Vol]36.3 g/lCKpyz10.9-35.2FTrinity Health System East CampusMCV Auto (RBC) [Entitic vol]Ordered By: Sunil Calvillo on 48-96-5343PUR (RBC) [Entitic vol]95.1 dRPjmh25.0-94.0[facility] Medical CenterMonocytes Auto (Bld) [#/Vol]Ordered By: Sunil Calvillo on 37-69-5262Wokhribca (Bld) [#/Vol]0.7 10 3/uL 0.3-0.8[facility] Medical CenterMonocytes/100 WBC Auto (Bld)Ordered By: Sunil Calvillo on 23-86-8260Kzpwbwnnb/100 WBC (Bld)7.4 %1.7-12.0[facility] Medical CenterNeutrophils Auto (Bld) [#/Vol]Ordered By: Sunil Calvillo on 71-64-2460Lsiqjfibjha (Bld) [#/Vol]8.6 10 3/uLHigh1.4-6.5FTrinity Health System East CampusNeutrophils/100 WBC Auto (Bld)Ordered By: Sunil Calvillo on 23-10-7411Umonjakkvvs/100 WBC (Bld)85.7 %High43.0-75.0[facility] CenterNo Panel InformationOrdered By: Maggie Johnson on 20-90-0716Crlde Bacteria TRACE #/HPFAbnormalNONE [facility] SystemUrine Culture ReflexedYE-Select Medical Specialty Hospital - AkronUrine Microscopic ReviewSouthern Ohio Medical CenterUrine Occult BloodNegativeNEGATIVESumma Health Wadsworth - Ritt[facility] Medical CenterUrine Other CastsSEEN #/LPFAbnormalNONE [facility] SystemUrine Other CrystalsNone Seen #/HPFNone [facility] HospitalUrine RBC0-2 #/HPF0-2FTrinity Health System East Campus Urine Squamous Epithelial CellsFEW #/LPFAbnormalNONE/RARESumma Health Wadsworth - Rittman Medical CenterUrine WBC5-10 #/HPFAbnormalNONE [facility] SystemNo Panel InformationOrdered By: Sunil Calvillo on 86-58-3414Gwnpx Random Khugyztvwd853.85 mg/bPQiqg92.00-300.00[facility] Eosinophils # (Auto)0.1 10 3/uL0.0-0.7FTrinity Health System East CampusImmature Granulocyte # (Auto)0.02 10 3/uL0.00-0.03[facility] Phosphorus Level10.8 mg/dLCritically high2.6-4.7FTrinity Health System East CampusComment on above:RESULTS CALLED TO GAMALIEL SCHERER RN @BY Margaux Christian at 0634Platelet mean volume Auto (Bld) [Entitic vol]Ordered By: Sunil Calvillo on 15-60-2344Puhxfhjx mean volume (Bld) [Entitic vol]9.0 fLLow 9.5-13.5FTrinity Health System East CampusPlatelets Auto (Bld) [#/Vol]Ordered By: Sunil Calvillo on 28-20-3026Cbbldustl (Bld) [#/Vol]242 10 3/oI977-964BxyfxzneeSumma Health Wadsworth - Rittman Medical CenterRBC Auto (Bld) [#/Vol]Ordered By: Sunil Calvillo on 26-47-6847DMR (Bld) [#/Vol]3.48 10 6/uLLow4.70-6.10[facility] Medical CenterRenal Function Panelon 82-68-2620Bbcmvqh [Mass/Vol]3.1 g/dLLow3.5-5.7The [facility] Physician GroupComment on above:Performed By: #### RENAL #### [facility] [address] [place] [address] USAAnion gap [Moles/Vol]20.6 mmol/LHigh6.0-15.0The [facility] Physician GroupComment on above:Performed By: #### RENAL #### [facility] [address] [place] [address] USACalcium [Mass/Vol]6.8 mg/dLLow8.6-10.3The [facility] Physician GroupComment on above:Performed By: #### RENAL #### [facility] [address] [place] [address] USAChloride [Moles/Vol]107 mmol/CHqzpyr67-138Okh [facility] Physician GroupComment on above:Performed By: #### RENAL #### [facility] [address] [place] [address] USACO2 [Moles/Vol]15.4 mmol/LLow21.0-31.0The [facility] Physician GroupComment on above:Performed By: #### RENAL #### [facility] [address] [place] [address] USACreatinine [Mass/Vol]5.35 mg/dLHigh0.70-1.30The [facility] Physician GroupComment on above:Performed By: #### RENAL #### [facility] [address] [place] [address] USACreatinine Clr Calc Pharmacy9.35NormalThe [facility] Physician GroupComment on above:Result Comment: PERFORMED BY: [facility] [address] [place] [address] PATHOLOGIST INDUSTRIAL ACCOUNTANT VALERIE CAMPBELL M.D.Performed By: #### RENAL #### [place] [address] USAGFR/1.73 sq M.predicted MDRD (S/P/Bld) [Vol rate/Area] 9.919 mL/min/{1.73_m2}NormalThe [facility] Physician GroupComment on above: Performed By: #### RENAL #### [place] [address] USAGlucose [Mass/Vol]127 mg/pXKdqt06-769Hch [facility] Physician GroupComment on above:Result Comment: Random Glucose Reference Range is dependent on time and content of last meal. Glucose of more than 200 mg/dL in a nonstressed, ambulatory subject supports the diagnosis of Diabetes Mellitus. ADA recommended reference rangePerformed By: #### RENAL #### [place] [address] USAPhosphate [Mass/Vol]7.4 mg/dLHigh2.5-4.5The [facility] Physician GroupComment on above:Performed By: #### RENAL #### [place] [address] USAPotassium [Moles/Vol]3.0 mmol/LLow3.5-5.1The [facility] Physician GroupComment on above:Performed By: #### RENAL #### [place] [address] USASodium [Moles/Vol]140 mmol/ZValmym955-526Gar [facility] Physician GroupComment on above:Performed By: #### RENAL #### [place] [address] USAUrea nitrogen [Mass/Vol]142 mg/dLHigh7-25The [facility] Physician GroupComment on above:Performed By: #### RENAL #### [place] [address] USASalmonella/Shigella Screenon 35-92-2632Vowvnzctvl/Shigella ScreenFinal report Comment No Salmonella or Shigella recovered. Final report Comment No Campylobacter species isolated. Negative Performed at: - [facility] [address] [id number] Manager Payment: Graham Salomon PhD, Phone: [phone] PERFORMED BY: [place] [address] PATHOLOGIST INDUSTRIAL ACCOUNTANT VALERIE CAMPBELL M.D.[facility] Physician GroupComment on above: Performed By: #### CDT #### [address] #### LCSC SS #### [facility] ,Serum or plasma anion gap determinationOrdered By: Sunil Calvillo on 07-07-2025 Anion gap [Moles/Vol]20.8 mmol/LFTrinity Health System East CampusUrine Cultureon 24-18-6193Bjvuqggu identified Cx Nom (U)ORGANISM: Staphylococcus aureus (O:STAAUR) [employer] Count 50,000 ORGANISM: Staphylococcus aureus (O:STAAUR) [employer] Count 20,000 Aerobic ANGÉLICA Charge (PCMIC38) SUSCEPTIBILITY ORGANISM: O:STAAUR ANTIBIOTIC INTERPRETATION ANGÉLICA Ceftaroline S <0.5 Ciprofloxacin S <1 Daptomycin S <0.5 Levofloxacin S <1 Linezolid S 2 Nitrofurantoin S <32 Oxacillin S <0.25 Penicillin R >2 Tetracycline S <4 Trimethoprim/Sulfamethoxazole S <0.5 Vancomycin S 1 Aerobic ANGÉLICA Charge (PCMIC38) SUSCEPTIBILITY ORGANISM: O:STAAUR ANTIBIOTIC INTERPRETATION ANGÉLICA Ceftaroline S <0.5 Ciprofloxacin S <1 Daptomycin S <0.5 Levofloxacin S <1 Linezolid S 2 Nitrofurantoin S <32 Oxacillin S <0.25 Penicillin R 1 Tetracycline S <4 Trimethoprim/Sulfamethoxazole S <0.5 Vancomycin S 1 S = SUSCEPTIBLE I = INTERMEDIATE R = RESISTANT BLANK = DATA NOT AVAILABLE, OR DRUG NOT ADVISABLE OR TESTED R* = RESISTANCE DUE TO EXTENDED SPECTRUM BETA-LACTAMASES ESBL = EXTENDED SPECTRUM BETA-LACTAMASE TFG = THYMIDINE-DEPENDENT STRAIN JAYME = BETA-LACTAMASE POSITIVE IB = INDUCIBLE BETA-LACTAMASE. APPEARS IN PLACE OF 'S' WITH SPECIES KNOWN TO POSSESS INDUCIBLE BETA-LACTAMASES. POTENTIALLY THEY MAY BECOME RESISTANT TO ALL B-LACTAM DRUGS. PERFORMED BY: [place] [address] PATHOLOGIST INDUSTRIAL ACCOUNTANT VALERIE CAMPBELL M.D.NormalAdventhealth Winter Park Physician GroupComment on above: Performed By: #### [facility] #### [place] [address] USABasophils/100 WBC Manual cnt (Bld)Ordered By: Maggie Johnson on 01-22-3027Udaeuamee/100 WBC (Bld)0.0 %Low0.2-2.0[facility] CenterEosinophils/100 WBC Manual cnt (Bld)Ordered By: Maggie Elizabeth on 07-06-2025 Eosinophils/100 WBC (Bld)0.0 %Low0.9-7.0[facility] Erythrocyte distribution width Auto (RBC) [Ratio]Ordered By: Maggie Elizabeth on 10-11-9725Rwvsaadqtxv distribution width (RBC) [Ratio]13.2 %11.0-15.0[facility] Medical CenterGlobulin Calc (S) [Mass/Vol]Ordered By: Maggie Johnson on 21-54-8444Pmvosgyz (S) [Mass/Vol]2.8 g/dLSumma Health Wadsworth - Rittman [facility] Center Glomerular filtration rate (GFR) estimation in non- AmericanOrdered By: Maggie Johnson on 04-47-0483WPC/1.73 sq M.predicted among non-blacks MDRD (S/P/Bld) [Vol rate/Area]6 mL/min/{1.73_m2}Low>=60 mL/min/1.73m 2FTrinity Health System East CampusHematocrit Auto (Bld) [Volume fraction]Ordered By: Maggie Johnson on 80-47-1632Tilbablmkf (Bld) [Volume fraction]43.4 %42.0-54.0[facility] CenterHemoglobin [Mass/volume] in BloodOrdered By: Maggie Johnson on 18-78-2682Tfcucvwipj (Bld) [Mass/Vol]15.4 g/dL14.0-18.0[facility] Medical CenterINR in Platelet poor plasma by Coagulation assayOrdered By: Maggie Johnson on 12-54-0437NDQ Coag (PPP) [Relative time]0.97 {INR}[facility] Medical CenterComment on above:DESIRED INR:2.0-3.0 CONDITIONS NOT LISTED BELOW2.5-3.5 FOR PROSTHETIC HEART VALVE REPLACEMENT2.5-3.5 RECURRENT THROMBOSIS Laboratory - Chemistry and Chemistry - challengeOrdered By: Maggie Johnson on 42-82-5448Cteniwa [Mass/Vol]2.9 g/dLLow3.4-5.0[facility] ALP [Catalytic activity/Vol]77 U/O45-626DoqzmiwmeSumma Health Wadsworth - Rittman Medical CenterALT [Catalytic activity/Vol]24 U/M68-50UsmhekwpaSumma Health Wadsworth - Rittman Medical CenterAST [Catalytic activity/Vol]23 U/I15-09QjfkqmfrtSumma Health Wadsworth - Rittman Medical CenterBilirubin [Mass/Vol]0.2 mg/dL0.2-1.0[facility] Medical CenterCalcium [Mass/Vol]6.7 mg/dLLow8.5-10.1FTrinity Health System East CampusChloride [Moles/Vol]100 mmol/L 98-107[facility] Medical CenterCO2 [Moles/Vol]9.5 mmol/LLow21.0-32.0 [facility] CenterCreatinine [Mass/Vol]8.28 mg/dLCritically high 0.70-1.30[facility] Medical CenterComment on above:RESULTS CALLED TO DONNA RODRIGUEZ/1.73 sq M.predicted MDRD (S/P/Bld) [Vol rate/Area]8 mL/min/{1.73_m2}Low>=60 mL/min/1.73m 2FTrinity Health System East CampusGlucose [Mass/Vol]81 mg/pM63-059KqwsejirkSumma Health Wadsworth - Rittman Medical CenterLactate [Moles/Vol]1.0 mmol/L0.4-2.0[facility] Medical CenterMagnesium [Mass/Vol]1.8 mg/dL 1.8-2.4FTrinity Health System East CampusPotassium [Moles/Vol]3.6 mmol/L3.5-5.1 [facility] CenterProtein [Mass/Vol]5.7 g/dLLow6.4-8.2FUniversity Hospitals Portage Medical Centerodium [Moles/Vol]134 mmol/IVms746-613BtwnjfzinSumma Health Wadsworth - Rittman Medical CenterUrea nitrogen [Mass/Vol]157.0 mg/dLCritically high7.0-18.0 [facility] CenterComment on above:RESULTS CALLED TO DONNA Vincent nitrogen/Creatinine [Mass ratio]19.0 mg/mgSumma Health Wadsworth - Rittman Medical CenterLaboratory - Hematology and Cell countsOrdered By: Maggie Johnson on 16-61-7604Jqwdluslvtb/100 WBC (Bld)8.0 %Low20.5-60.0[facility] Medical CenterMonocytes/100 WBC (Bld)2.0 %1.7-12.0[facility] Leukocytes [#/volume] corrected for nucleated erythrocytes in Blood by Automated counOrdered By: Maggie Johnson on 11-92-3684SLG corrected for nucl RBC Auto (Bld) [#/Vol]12.3 10 3/uLHigh4.0-11.0[facility] Auto (RBC) [Entitic mass]Ordered By: Maggie Johnson on 95-46-7042EMK (RBC) [Entitic mass]34.5 iaDtdc54.9-34.0[facility] Auto (RBC) [Mass/Vol] Ordered By: Maggie Johnson on 08-80-6255LRCG (RBC) [Mass/Vol]35.5 g/kHEwai08.9-35.2 [facility] CenterV Auto (RBC) [Entitic vol]Ordered By: Maggie Johnson on 81-78-2340FNM (RBC) [Entitic vol]97.1 bUZxbt05.0-94.0[facility] CenterNo Panel InformationOrdered By: Maggie Johnson on 23-04-2953Yyajfarx Basophils (Manual)0.00 10 3/uL0.00-0.10[facility] Eosinophils # (Manual)0.00 10 3/uL0.00-0.70[facility] Lymphocytes # (Manual)0.98 10 3/uLLow1.20-3.80[facility] Monocytes # (Manual)0.24 10 3/uLLow0.30-0.80[facility] Segmented Neutrophils # (Manual)11.07 10 3/uLHigh1.4-6.5FTrinity Health System East CampusTroponin I High Skdzjhjaafi23.7 pg/mL4.0-76.1FTrinity Health System East CampusComment on above:CUT-OFF POINTS HAVE BEEN ESTABLISHED BASED ON THE FOURTHUNIVERSAL DEFINITION OF MYOCARDIAL INFARCTION. THE UPPERREFERENCE LIMIT (URL) OF TROPONIN, DEFINED THE 99THPERCENTILE OF cTnI DISTRIBUTION IN A REFERENCE POPULATION,HAS BEEN CONFIRMED THE DECISION THRESHOLD FOR MIDIAGNOSIS.99TH PERCENTILE = 76.2 PG/MLNOTE: HIGH-SENSITIVITY TROPONIN ASSAY IS NOT INTENDED TO BEUSED IN ISOLATION BUT SHOULD BE INTERPRETED IN CONJUNCTIONWITH OTHER DIAGNOSTIC AND CLINICAL INFORMATION.Platelet mean volume Auto (Bld) [Entitic vol]Ordered By: Maggie Diab on 97-39-8826Wfdaaawq mean volume (Bld) [Entitic vol]10.5 fL9.5-13.5FTrinity Health System East CampusPlatelets Auto (Bld) [#/Vol]Ordered By: Maggie Johnson on 99-12-2753Bvkksoggv (Bld) [#/Vol]426 10 3/eI994-703RjuxblevzSumma Health Wadsworth - Rittman Medical CenterProthrombin time (PT)Ordered By: Maggie Johnson on 33-42-0270NX Coag (PPP) [Time]10.3 s9.0-11.6FTrinity Health System East CampusRBC Auto (Bld) [#/Vol]Ordered By: Maggie Johnson on 85-46-7574QMC (Bld) [#/Vol]4.47 10 6/uLLow4.70-6.10[facility] Hospitalegmented neutrophils/100 WBC Manual cnt (Bld)Ordered By: Maggie Johnson on 07-06-2025 Segmented neutrophils/100 WBC (Bld)90.0 %High43.0-75.0[facility] Hospitalerum or plasma albumin/globulin mass ratioOrdered By: Maggie Johnson on 49-77-2055Ncttvrc/Globulin [Mass ratio]1.0 {ratio}[facility] Hospitalerum or plasma anion gap determinationOrdered By: Maggie Johnson on 02-73-5213Obmvv gap [Moles/Vol]28.1 mmol/LFTrinity Health System East Campus Trauma Office/Clinic Noteon 21-94-2844Nmquna Office/Clinic NoteTrauma Office/Clinic Note History of Present Illness Patient was initially seen at [facility] on 05/16/24 and ultimately transferred to [facility] for his injuries as noted below [...] who presented as CAT 1 transfer from [facility] for mechanical fall down 8 steps. Unwitnessed fall, - head strike, - loc, - antiplatelet, -anticoagulation. He was found by his after remaining on the floor for 1-2 hours. He was initially taken to [facility] where he was scanned and found to have multiple right sided rib fractures with hydropneumothorax and right sided pelvic fractures. Right pigtail catheter placed prior to transfer to [facility] for ortho and trauma work up. [...] month. Was scheduled to be seen at [facility] but had issues getting there because of the commute so the patient has come to our clinic for removal of the G-tube. Patient denies any pain, redness, drainage from the area, has been tolerating regular diet without issue, no issues with swallowing, no vo (more content not included)...[facility] HospitalComment on above:Result Comment: Electronically Signed By: Fiordaliza Jara PA-C\.br\Date and Time Signed: 08/18/24 10:17 EST\.br\Electronically Co-Signed By: Leatha Spring MD\.br\Date and Time Co-Signed: 08/18/24 11:14 ESTCBCon 45-52-9956Cxlfocxmwbc distribution width (RBC) [Ratio]15.5 %High11.5-15.0UnShelby Memorial HospitalComment on above:Performed By: #### [id number] #### [facility] (BEAKER) [address] [place], [place] [address]RBDHKNFCVOW MEAN CORPUSCULAR HEMOGLOBIN CONCENTRATION (G/DL) BY BMNQMAUIU69.4 g/dLLow32.0-35.0UnShelby Memorial HospitalComment on above:Performed By: #### [id number] #### [facility] (BEAKER) [address] [place], [place] [address]Ovrcwbcltt (Bld) [Volume fraction]30.3 %Low39.0-55.0UnShelby Memorial HospitalComment on above:Performed By: #### [id number] #### [facility] ([facility]) [address] [place] [address]Wlotmzqusy (Bld) [Mass/Vol]9.5 g/dLLow13.0-17.0UnShelby Memorial HospitalComment on above:Performed By: #### [id number] #### [facility] ([facility]) [address] [place] [address]XJY (RBC) [Entitic mass]30.4 lbEvivyr77.0-33.0UnShelby Memorial HospitalComment on above:Performed By: #### [id number] #### [facility] ([facility]) [address] [place] [address]PSN (RBC) [Entitic vol]97.1 qYBdrdhd58.0-98.0UnShelby Memorial HospitalComment on above:Performed By: #### [id number] #### [facility] ([facility]) [address] [place] [address]SJJQOWUNK (10*3/UL) IN BLOOD AUTOMATED [id number] 10*3/uLNormal 150-400UnShelby Memorial HospitalComment on above:Performed By: #### [id number] #### [facility] ([facility]) [address] [place] [address]IBK (Bld) [#/Vol]3.12 10*6/uLLow4.20-5.70UnShelby Memorial HospitalComment on above:Performed By: #### [id number] #### [facility] ([facility]) [address] [place] [address]FIJ (Bld) [#/Vol]8.93 10*3/uLNormal4.00-10.60UnShelby Memorial HospitalComment on above:Performed By: #### [id number] #### [facility] ([facility]) [address] [place] [address]THEAFLPNMTUMB METABOLIC PANELon 04-72-6930Wrrrjhl [Mass/Vol]3.4 g/dLLow3.5-5.7UnShelby Memorial HospitalComment on above:Performed By: #### [id number] #### [facility] ([facility]) [address] [place], [place] [address]APL [Catalytic activity/Vol]87 U/TXogoda91-434UyakuecpfmShelby Memorial HospitalComment on above:Performed By: #### [id number] #### [facility] ([facility]) [address] [place], [place] [address]TER [Catalytic activity/Vol]13 U/LNormal7-52UnShelby Memorial HospitalComment on above:Performed By: #### [id number] #### [facility] ([facility]) [address] [place], [place] [address]Feoej gap [Moles/Vol]6 mmol/LLow7-20UnShelby Memorial HospitalComment on above:Performed By: #### [id number] #### [facility] ([facility]) [address] [place], [place] [address]ESV [Catalytic activity/Vol]14 U/OGahvew54-76BdzddcsseoShelby Memorial HospitalComment on above:Performed By: #### [id number] #### [facility] ([facility]) [address] [place], [place] [address]Xddtnuzab [Mass/Vol]0.2 mg/dLLow0.3-1.0UnShelby Memorial HospitalComment on above:Performed By: #### [id number] #### [facility] ([facility]) [address] [place], [place] [address]Zmnrpng [Mass/Vol]9.0 mg/dLNormal8.6-10.3UnShelby Memorial HospitalComment on above:Performed By: #### [id number] #### [facility] ([facility]) [address] [place] [place], [place] [address]Pioutsky [Moles/Vol]101 mmol/CIjqhzo49-959JfgsizmoibShelby Memorial HospitalComment on above:Performed By: #### [id number] #### [facility] [address] [place] [address]TA3 [Moles/Vol]32 mmol/ZVtil56-12GemjwjgdcbShelby Memorial HospitalComment on above:Performed By: #### [id number] #### [facility] ([facility]) [address] [place] [address]Eroiegprnp [Mass/Vol]0.66 mg/dLLow0.70-1.30UnShelby Memorial HospitalComment on above:Performed By: #### [id number] #### [facility] ([facility]) [address] [place] [address]OOCTPIPWIM FILTRATION RATE ML/MIN/1.73 SQ M.DLBVAYMHD85.1 mL/min/1.73m*2Normal>60.0UnShelby Memorial HospitalComment on above: Result Comment: The [facility]???s estimated glomerular filtration rate (eGFR) will [...] group of individuals.Performed By: #### [id number] #### [facility] ([facility]) [address] [place] [address]Hziuavg [Mass/Vol]83 mg/iVCdoexm72-588GsveetbypnShelby Memorial HospitalComment on above:Performed By: #### [id number] #### [facility] ([facility]) [address] [place] [address]Qhjyokrwi [Moles/Vol]4.2 mmol/LNormal3.5-5.1UnShelby Memorial HospitalComment on above:Performed By: #### [id number] #### [facility] ([facility]) [address] [place] [address]Wfwmxfi [Mass/Vol]6.9 g/dLNormal6.0-8.3UnShelby Memorial HospitalComment on above:Performed By: #### [id number] #### [facility] ([facility]) [address] [place] [address]Iulgwc [Moles/Vol]135 mmol/XPrw191-223VozkudszrdShelby Memorial HospitalComment on above:Performed By: #### [id number] #### [facility] ([facility]) [address] [place] [address]Dzqe nitrogen [Mass/Vol]24 mg/dLNormal7-25UnShelby Memorial HospitalComment on above:Performed By: #### [id number] #### [facility] ([facility]) [address] [place] [address]YNXU NITROGEN/CREATININE (MASS RATIO) IN SER/PLAS36.4Normal [facility] HospitalComment on above:Performed By: #### [id number] #### [facility] ([facility]) [address] [place] [address]MVZIRGNBGae 65-35-1415Jcjsdigut [Mass/Vol]2.1 mg/dLNormal1.9-2.7 [facility] HospitalComment on above:Performed By: #### [id number] #### [facility] ([facility]) [address] [place] [address]LJJSHXCOCOez 33-49-4336Humzolfwt [Mass/Vol]3.3 mg/dLNormal 2.5-5.0UnShelby Memorial HospitalComment on above:Performed By: #### [id number] #### [facility] ([facility]) [address] [place], [place] [address]SPFXP METABOLIC PANELon 06-67-7905Bxbrm gap [Moles/Vol]9 mmol/L Normal7-20UnShelby Memorial HospitalComment on above:Performed By: #### [id number] #### [facility] ([facility]) [address] [place] [address]Bhvcvrr [Mass/Vol]9.4 mg/dLNormal8.6-10.3UnShelby Memorial HospitalComment on above:Performed By: #### [id number] #### [facility] ([facility]) [address] [place] [address]Styfualo [Moles/Vol]102 mmol/VQhpwae23-920LlbupolfumShelby Memorial HospitalComment on above:Performed By: #### [id number] #### [facility] ([facility]) [address] [place] [address]HY5 [Moles/Vol]28 mmol/LNpekhu22-32RykcfyvwwiShelby Memorial HospitalComment on above:Performed By: #### [id number] #### [facility] ([facility]) [address] [place] [address]Wbpdmjcunr [Mass/Vol]0.70 mg/dLNormal0.70-1.30UnShelby Memorial HospitalComment on above:Performed By: #### [id number] #### [facility] ([facility]) [address] [place] [address]AUISWYKQWP FILTRATION RATE ML/MIN/1.73 SQ M.RJYPGBVLO63.4 mL/min/1.73m*2Normal>60.0UnShelby Memorial HospitalComment on above: Result Comment: The [facility]???s estimated glomerular filtration rate (eGFR) will [...] group of individuals.Performed By: #### [id number] #### [facility] ([facility]) [address] [place] [address]Qnbcjrb [Mass/Vol]106 mg/xCRgaf47-000JbjahttmjiShelby Memorial HospitalComment on above:Performed By: #### [id number] #### [facility] ([facility]) [address] [place] [place] [address]Bdadygnyk [Moles/Vol]4.0 mmol/LNormal3.5-5.1UnShelby Memorial HospitalComment on above:Performed By: #### [id number] #### [facility] ([facility]) [address] [place] [address]Yxzzzi [Moles/Vol]135 mmol/JKdd028-870FnvonppdlgShelby Memorial HospitalComment on above:Performed By: #### [id number] #### [facility] ([facility]) [address] [place] [address]Drpa nitrogen [Mass/Vol]26 mg/dLHigh7-25UnShelby Memorial HospitalComment on above:Performed By: #### [id number] #### [facility] ([facility]) [address] [place], [place] [address]JJJD NITROGEN/CREATININE (MASS RATIO) IN SER/PLAS37.1Normal [facility] HospitalComment on above:Performed By: #### [id number] #### [facility] ([facility]) [address] [place], [place] [address]VUC WITH AUTO DIFFERENTIALon 31-56-8647Oqvmdgdfj (Bld) [#/Vol] 0.05 10*3/uLNormal0.00-0.20UnShelby Memorial HospitalComment on above: Performed By: #### [id number] #### [facility] ([facility]) [address] [place], [place] [address]Uciupijge/100 WBC (Bld)0.7 %Normal0.0-1.0UnShelby Memorial HospitalComment on above:Performed By: #### [id number] #### [facility] ([facility]) [address] [place], [place] [address]Oxrloaabyua (Bld) [#/Vol]0.37 10*3/uLNormal0.00-0.50UnShelby Memorial HospitalComment on above:Performed By: #### [id number] #### [facility] (BEAKER) [address] [place] [address]Uatibnbayjm/100 WBC (Bld)4.8 %Normal0.0-6.0UnShelby Memorial HospitalComment on above:Performed By: #### [id number] #### [facility] ([facility]) [address] [place] [address]Pvkahhmpvpj distribution width (RBC) [Ratio]15.8 %High11.5-15.0 [facility] HospitalComment on above:Performed By: #### [id number] #### [facility] ([facility]) [address] [place] [address]ZOAYHGXLVCK MEAN CORPUSCULAR HEMOGLOBIN CONCENTRATION (G/DL) BY YDHYKMKXB99.4 g/dLLow32.0-35.0UnShelby Memorial HospitalComment on above:Performed By: #### [id number] #### [facility] ([facility]) [address] [place] [place] [address]Lzvnoifbya (Bld) [Volume fraction]30.3 %Low39.0-55.0UnShelby Memorial HospitalComment on above:Performed By: #### [id number] #### [facility] ([facility]) [address] [place] [address]Umzkqcsifo (Bld) [Mass/Vol]9.5 g/dLLow13.0-17.0UnShelby Memorial HospitalComment on above:Performed By: #### [id number] #### [facility] ([facility]) [address] [place] [address]Oamldboj granulocytes (Bld) [#/Vol]0.06 10*3/uLNormal0.00-0.20 [facility] HospitalComment on above:Performed By: #### [id number] #### [facility] ([facility]) [address] [place] [address]Oxzjsgeq granulocytes/100 WBC (Bld)0.8 %Normal0.0-1.0UnShelby Memorial HospitalComment on above:Performed By: #### [id number] #### [facility] ([facility] [address], [place] [address]Dtrkqcivnad (Bld) [#/Vol]1.29 10*3/uLNormal1.20-4.00UnShelby Memorial HospitalComment on above:Performed By: #### [id number] #### [facility] ([facility] [address] [place], [place] [address]Irnrbqyqwld/100 WBC (Bld)16.9 %Low20.0-45.0UnShelby Memorial HospitalComment on above:Performed By: #### [id number] #### [facility] ([facility]) [address] [place], [place] [address]YTR (RBC) [Entitic mass]30.6 rtVjrzdf62.0-33.0UnShelby Memorial HospitalComment on above:Performed By: #### [id number] #### [facility] ([facility]) [address] [place], [place] [address]BWL (RBC) [Entitic vol]97.7 wUGykmde41.0-98.0UnShelby Memorial HospitalComment on above:Performed By: #### [id number] #### [facility] ([facility] [address] [facility] [place], [place] [address]Lachkaigf (Bld) [#/Vol]0.59 10*3/uLNormal0.10-1.00UnShelby Memorial HospitalComment on above:Performed By: #### [id number] #### [facility] ([facility]) [address] [place], [place] [address]Zvfsvzpyk/100 WBC (Bld)7.7 %Normal5.0-12.0UnShelby Memorial HospitalComment on above:Performed By: #### [id number] #### [facility] ([facility] [address] [facility] [place], [place] [address]Wseyqjnnybj (Bld) [#/Vol]5.28 10*3/uLNormal1.60-7.60UnShelby Memorial HospitalComment on above:Performed By: #### [id number] #### [facility] ([facility]) [address] [place] [address]Tluidthagzm/100 WBC (Bld)69.1 %Jzqkzy85.0-72.0UnShelby Memorial HospitalComment on above:Performed By: #### [id number] #### [facility] ([facility]) [address] [address]AEQP (PER 100 WBCS) BY AUTOMATED COUNT0.0 %Mdrofc6KdncthhbuzShelby Memorial HospitalComment on above:Performed By: #### [id number] #### [facility] ([facility]) [address] [place] [id number] (10*3/UL) IN BLOOD AUTOMATED [id number] 10*3/uLNormal 150-400UnShelby Memorial HospitalComment on above:Performed By: #### [id number] #### [facility] ([facility]) [address] [place] [address]KDM (Bld) [#/Vol]3.10 10*6/uLLow4.20-5.70UnShelby Memorial HospitalComment on above:Performed By: #### [id number] #### [facility] ([facility]) [address] [address]YZV (Bld) [#/Vol]7.64 10*3/uLNormal4.00-10.60UnShelby Memorial HospitalComment on above:Performed By: #### [id number] #### [facility] ([facility]) [address] [place] [address]CMKXVQRYIbk [id number] [Mass/Vol]2.1 mg/dLNormal1.9-2.7 [facility] HospitalComment on above:Performed By: #### [id number] #### [facility] ([facility]) [address] [place] [address]THIVYHXMQNtd 52-17-4447Kmlsmvkiu [Mass/Vol]3.9 mg/dLNormal 2.5-5.0UnShelby Memorial HospitalComment on above:Performed By: #### [id number] #### [facility] ([facility]) [address] [place] [address]FXYmc 63-94-3063Cvuqyfjbsve distribution width (RBC) [Ratio]15.3 %High11.5-15.0UnShelby Memorial HospitalComment on above:Performed By: #### [id number] #### [facility] ([facility]) [address] [place] [address]TCFUEQHHAAH MEAN CORPUSCULAR HEMOGLOBIN CONCENTRATION (G/DL) BY MWUBGMZNZ13.6 g/dLLow32.0-35.0UnShelby Memorial HospitalComment on above:Performed By: #### [id number] #### [facility] ([facility]) [address] [place] [address]Egyjryytvx (Bld) [Volume fraction]31.0 %Low39.0-55.0UnShelby Memorial HospitalComment on above:Performed By: #### [id number] #### [facility] ([facility]) [address] [place] [address]Yapmtgkvvg (Bld) [Mass/Vol]9.8 g/dLLow13.0-17.0UnShelby Memorial HospitalComment on above:Performed By: #### [id number] #### [facility] ([facility]) [address] [place] [address]XON (RBC) [Entitic mass]30.4 zyNeuzww86.0-33.0UnShelby Memorial HospitalComment on above:Performed By: #### [id number] #### [facility] ([facility]) [address] [place] [address]CYQ (RBC) [Entitic vol]96.3 tSOgsate34.0-98.0UnShelby Memorial HospitalComment on above:Performed By: #### [id number] #### [facility] ([facility]) [address] [place] [address]NUYUTKAXT (10*3/UL) IN BLOOD AUTOMATED [id number] 10*3/uLNormal 150-400UnShelby Memorial HospitalComment on above:Performed By: #### [id number] #### [facility] ([facility] [address] [place] [address]XNY (Bld) [#/Vol]3.22 10*6/uLLow4.20-5.70UnShelby Memorial HospitalComment on above:Performed By: #### [id number] #### [facility] ([facility] [address] [place] [address]JOK (Bld) [#/Vol]8.44 10*3/uLNormal4.00-10.60UnShelby Memorial HospitalComment on above:Performed By: #### [id number] #### [facility] ([facility]) [address] [place] [address]ZJEBNUJUVAQZR METABOLIC PANELon 54-58-8792Qtthybt [Mass/Vol]3.6 g/dLNormal3.5-5.7UnShelby Memorial HospitalComment on above:Performed By: #### [id number] #### [facility] ([facility] [address] [place] [address]ZUW [Catalytic activity/Vol]99 U/JAdltcm82-702XimohqxokyShelby Memorial HospitalComment on above:Performed By: #### [id number] #### [facility] ([facility] [address] [place] [address]VLV [Catalytic activity/Vol]15 U/LNormal7-52UnShelby Memorial HospitalComment on above:Performed By: #### [id number] #### [facility] ([facility] [address] [place], [place] [address]Aawnt gap [Moles/Vol]7 mmol/LNormal7-20UnShelby Memorial HospitalComment on above:Performed By: #### [id number] #### [facility] ([facility] [address] [place] [address]XPA [Catalytic activity/Vol]14 U/ZQtfimt82-50PdmtieayndShelby Memorial HospitalComment on above:Performed By: #### [id number] #### [facility] ([facility] [address] [place] [address]Vwprwlbyq [Mass/Vol]0.3 mg/dLNormal0.3-1.0UnShelby Memorial HospitalComment on above:Performed By: #### [id number] #### [facility] ([facility] [address] [place] [address]Nzdulbi [Mass/Vol]9.9 mg/dLNormal8.6-10.3UnShelby Memorial HospitalComment on above:Performed By: #### [id number] #### [facility] ([facility] [address] [place] [address]Euazpjin [Moles/Vol]100 mmol/FDgzmps45-436KphigincmxShelby Memorial HospitalComment on above:Performed By: #### [id number] #### [facility] ([facility] [address] [place] [address]JW6 [Moles/Vol]31 mmol/ZSgogwm57-22IzsxzyeqejShelby Memorial HospitalComment on above:Performed By: #### [id number] #### [facility] ([facility]) [address] [place] [address]Twotgyfgam [Mass/Vol]0.54 mg/dLLow0.70-1.30UnShelby Memorial HospitalComment on above:Performed By: #### [id number] #### [facility] ([facility]) [address] [place] [address]UTROWRCITG FILTRATION RATE ML/MIN/1.73 SQ M.QQPKYLXMB40.9 mL/min/1.73m*2Normal>60.0UnShelby Memorial HospitalComment on above: Result Comment: The [facility]???s estimated glomerular filtration rate (eGFR) will [...] group of individuals.Performed By: #### [id number] #### [facility] ([facility]) [address] [place], [place] [address]Rdkidzr [Mass/Vol]98 mg/dVYvyirs52-363JzvzzzippwShelby Memorial HospitalComment on above:Performed By: #### [id number] #### [facility] ([facility]) [address] [place], [place] [address]Mpercxqzv [Moles/Vol]4.2 mmol/LNormal3.5-5.1UnShelby Memorial HospitalComment on above:Performed By: #### [id number] #### [facility] ([facility]) [address] [place], [place] [address]Slgvdqj [Mass/Vol]7.5 g/dLNormal6.0-8.3UnShelby Memorial HospitalComment on above:Performed By: #### [id number] #### [facility] ([facility]) [address] [place], [place] [address]Ipvpkf [Moles/Vol]134 mmol/TYqa048-736BixpmledgcShelby Memorial HospitalComment on above:Performed By: #### [id number] #### [facility] ([facility]) [address] [place], [place] [address]Rwtv nitrogen [Mass/Vol]24 mg/dLNormal7-25UnShelby Memorial HospitalComment on above:Performed By: #### [id number] #### [facility] ([facility]) [address] [place], [place] [address]ITBL NITROGEN/CREATININE (MASS RATIO) IN SER/PLAS44.4Normal [facility] HospitalComment on above:Performed By: #### [id number] #### [facility] ([facility]) [address] [place], [place] [address]CKBVPGWSLox 16-66-2910Jymyvcizx [Mass/Vol]1.8 mg/dLLow1.9-2.7 [facility] HospitalComment on above:Performed By: #### [id number] #### [facility] ([facility]) [address] [place] [address]THNSOBMNSYmh 42-71-7839Thefvdhbl [Mass/Vol]2.0 mg/dLLow2.5-5.0 [facility] HospitalComment on above:Performed By: #### [id number] #### [facility] ([facility]) [address] [place] [address]OPQSFZHHMVBZUbc 82-63-5031AZNARXI?UnknownNormalUniversity [facility] Clinic Akron GeneralComment on above:Performed By: #### [id number] #### [facility] ([facility]) [address] [place] [address]Pbrtzuhyf [Mass/Vol]106 mg/qLOxqpcm09-039MkudagrqicShelby Memorial HospitalComment on above:Result Comment: TRIGLYCERIDE REFERENCE RANGE: 20 YEARS AND OLDER CARDIOVASCULAR RISK LESS THAN 150 mg/dL LOW RISK 150 TO 199 mg/dL BORDERLINE RISK 200 mg/dL AND GREATER HIGH RISKPerformed By: #### [id number] #### [facility] ([facility]) [address] [place] [address]GUOSD METABOLIC PANELon 61-64-0597Rfvbq gap [Moles/Vol]7 mmol/L Normal7-20UnShelby Memorial HospitalComment on above:Performed By: #### [id number] #### [facility] ([facility]) [address] [place] [address]Bjvkwsx [Mass/Vol]9.5 mg/dLNormal8.6-10.3UnShelby Memorial HospitalComment on above:Performed By: #### [id number] #### [facility] ([facility]) [address] [place] [address]Necyfivw [Moles/Vol]101 mmol/MZkrdit00-437HuumnavjqiShelby Memorial HospitalComment on above:Performed By: #### [id number] #### [facility] ([facility]) [address] [place] [address]GO9 [Moles/Vol]32 mmol/FUfhi92-12DhtdqvphpwShelby Memorial HospitalComment on above:Performed By: #### [id number] #### [facility] ([facility]) [address] [place] [address]Yqukqkowdr [Mass/Vol]0.56 mg/dLLow0.70-1.30UnShelby Memorial HospitalComment on above:Performed By: #### [id number] #### [facility] ([facility]) [address] [place] [address]JIPVCDAQRQ FILTRATION RATE ML/MIN/1.73 SQ M.VLVMLEQDE70.8 mL/min/1.73m*2Normal>60.0UnShelby Memorial HospitalComment on above: Result Comment: The [facility]???s estimated glomerular filtration rate (eGFR) will [...] group of individuals.Performed By: #### [id number] #### [facility] ([facility]) [address] [place] [address]Wnjkati [Mass/Vol]100 mg/oHNzaikk68-192FbbeisygicShelby Memorial HospitalComment on above:Performed By: #### [id number] #### [facility] ([facility]) [address] [place] [address]Stfzeykax [Moles/Vol]4.2 mmol/LNormal3.5-5.1UnShelby Memorial HospitalComment on above:Performed By: #### [id number] #### [facility] ([facility]) [address] [place] [address]Ydrkrv [Moles/Vol]136 mmol/NUldlss896-379AqdjybndpdShelby Memorial HospitalComment on above:Performed By: #### [id number] #### [facility] ([facility]) [address] [place], [place] [address]Qkge nitrogen [Mass/Vol]31 mg/dLHigh7-25UnShelby Memorial HospitalComment on above:Performed By: #### [id number] #### [facility] ([facility]) [address] [place], [place] [address]VYUD NITROGEN/CREATININE (MASS RATIO) IN SER/PLAS55.4Normal [facility] HospitalComment on above:Performed By: #### [id number] #### [facility] ([facility]) [address] [place], [place] [address]XZECGYCWGzm 12-94-8680Zhqazwdvy [Mass/Vol]1.9 mg/dLNormal1.9-2.7 [facility] HospitalComment on above:Performed By: #### [id number] #### [facility] ([facility]) [address] [place], [place] [address]WVM WITH AUTO DIFFERENTIALon 85-71-9720Rbfsuhjsk (Bld) [#/Vol] 0.03 10*3/uLNormal0.00-0.20UnShelby Memorial HospitalComment on above: Performed By: #### [id number] #### [facility] ([facility]) [address] [place], [place] [address]Sgtxqmcxt/100 WBC (Bld)0.4 %Normal0.0-1.0UnShelby Memorial HospitalComment on above:Performed By: #### [id number] #### [facility] ([facility]) [address] [place], [place] [address]Ixzsyoaepqx (Bld) [#/Vol]0.42 10*3/uLNormal0.00-0.50UnShelby Memorial HospitalComment on above:Performed By: #### [id number] #### [facility] ([facility]) [address], [place] [address]Fganhkhzkmt/100 WBC (Bld)5.6 %Normal0.0-6.0UnShelby Memorial HospitalComment on above:Performed By: #### [id number] #### [facility] ([facility]) [address] [place] [address]Ykgnsltihdp distribution width (RBC) [Ratio]15.9 %High11.5-15.0 [facility] HospitalComment on above:Performed By: #### [id number] #### [facility] ([facility]) [address] [place] [address]UHHEOPDOTNE MEAN CORPUSCULAR HEMOGLOBIN CONCENTRATION (G/DL) BY VNIUFINNM36.2 g/dLLow32.0-35.0UnShelby Memorial HospitalComment on above:Performed By: #### [id number] #### [facility] ([facility]) [address] [place] [address]Yorymxasqi (Bld) [Volume fraction]28.2 %Low39.0-55.0UnShelby Memorial HospitalComment on above:Performed By: #### [id number] #### [facility] ([facility]) [address] [place], [place] [address]Bealtodqaf (Bld) [Mass/Vol]8.8 g/dLLow13.0-17.0UnShelby Memorial HospitalComment on above:Performed By: #### [id number] #### [facility] ([facility]) [address] [place], [place] [address]Elfdzmeb granulocytes (Bld) [#/Vol]0.04 10*3/uLNormal0.00-0.20 [facility] HospitalComment on above:Performed By: #### [id number] #### [facility] ([facility]) [address] [place], [place] [address]Iujovmzn granulocytes/100 WBC (Bld)0.5 %Normal0.0-1.0UnShelby Memorial HospitalComment on above:Performed By: #### [id number] #### [facility] [address] [place], [place] [address]Irgrwyxkdao (Bld) [#/Vol]1.18 10*3/uLLow1.20-4.00UnShelby Memorial HospitalComment on above:Performed By: #### [id number] #### [facility] ([facility]) [address] [place] [address]Mnpgtftzjlc/100 WBC (Bld)15.6 %Low20.0-45.0UnShelby Memorial HospitalComment on above:Performed By: #### [id number] #### [facility] ([facility] [address] [facility] [place], [place] [address]KPD (RBC) [Entitic mass]30.6 jfRgbrqq43.0-33.0UnShelby Memorial HospitalComment on above:Performed By: #### [id number] #### [facility] ([facility]) [address] [place], [place] [address]ZNZ (RBC) [Entitic vol]97.9 yGUnigji17.0-98.0UnShelby Memorial HospitalComment on above:Performed By: #### [id number] #### [facility] ([facility] [address] [facility] [place], [place] [address]Nwkoudtvm (Bld) [#/Vol]0.53 10*3/uLNormal0.10-1.00UnShelby Memorial HospitalComment on above:Performed By: #### [id number] #### [facility] ([facility]) [address] [place], [place] [address]Sfwujtqkl/100 WBC (Bld)7.0 %Normal5.0-12.0UnShelby Memorial HospitalComment on above:Performed By: #### [id number] #### [facility] ([facility]) [address] [facility] [place], [place] [address]Kydnnsmpopi (Bld) [#/Vol]5.34 10*3/uLNormal1.60-7.60UnShelby Memorial HospitalComment on above:Performed By: #### [id number] #### [facility] ([facility]) [address] [place] [address]Xzssdbyagwb/100 WBC (Bld)70.9 %Gokuxj25.0-72.0UnShelby Memorial HospitalComment on above:Performed By: #### [id number] #### [facility] ([facility]) [address] [place] [address]DANV (PER 100 WBCS) BY AUTOMATED COUNT0.0 %Bozpog2DzyugbmeweShelby Memorial HospitalComment on above:Performed By: #### [id number] #### [facility] ([facility]) [address] [place] [address]IAYNAYFXE (10*3/UL) IN BLOOD AUTOMATED [id number] 10*3/uLNormal 150-400UnShelby Memorial HospitalComment on above:Performed By: #### [id number] #### [facility] ([facility]) [address] [place] [address]RBA (Bld) [#/Vol]2.88 10*6/uLLow4.20-5.70UnShelby Memorial HospitalComment on above:Performed By: #### [id number] #### [facility] ([facility]) [address] [place] [address]JHI (Bld) [#/Vol]7.54 10*3/uLNormal4.00-10.60UnShelby Memorial HospitalComment on above:Performed By: #### [id number] #### [facility] ([facility]) [address] [place] [address]GVFMAZPUHUBFO METABOLIC PANELon 76-63-3584Mmjpzbb [Mass/Vol]3.3 g/dLLow3.5-5.7UnShelby Memorial HospitalComment on above:Performed By: #### [id number] #### [facility] ([facility]) [address] [place] [address]TYY [Catalytic activity/Vol]88 U/BDtmgif91-967UpstfkcdcwShelby Memorial HospitalComment on above:Performed By: #### [id number] #### [facility] ([facility]) [address] [place], [place] [address]ASC [Catalytic activity/Vol]13 U/LNormal7-52UnShelby Memorial HospitalComment on above:Performed By: #### [id number] #### [facility] [address] [place], [place] [address]Ljxfk gap [Moles/Vol]6 mmol/LLow7-20UnShelby Memorial HospitalComment on above:Performed By: #### [id number] #### [facility] ([facility]) [address] [place], [place] [address]SNN [Catalytic activity/Vol]16 U/LGcmakw32-14LzyzhyspllShelby Memorial HospitalComment on above:Performed By: #### [id number] #### [facility] ([facility]) [address] [place], [place] [address]Tnozlzrzk [Mass/Vol]0.3 mg/dLNormal0.3-1.0UnShelby Memorial HospitalComment on above:Performed By: #### [id number] #### [facility] ([facility]) [address] [place], [place] [address]Bclcyez [Mass/Vol]9.4 mg/dLNormal8.6-10.3UnShelby Memorial HospitalComment on above:Performed By: #### [id number] #### [facility] ([facility]) [address] [place], [place] [address]Uxmrsltm [Moles/Vol]99 mmol/WQhvnkb06-567KovetipxupShelby Memorial HospitalComment on above:Performed By: #### [id number] #### [facility] ([facility] [address] [place], [place] [address]IW6 [Moles/Vol]32 mmol/FKldi03-06XmubpugmilShelby Memorial HospitalComment on above:Performed By: #### [id number] #### [facility] ([facility] [address] [place], [place] [address]Wxraruatqu [Mass/Vol]0.71 mg/dLNormal0.70-1.30UnShelby Memorial HospitalComment on above:Performed By: #### [id number] #### [facility] ([facility]) [address] [place] [address]WDJTVGXWVQ FILTRATION RATE ML/MIN/1.73 SQ M.HEXSSWYSK73.0 mL/min/1.73m*2Normal>60.0UnShelby Memorial HospitalComment on above: Result Comment: [facility]???s estimated glomerular filtration rate (eGFR) will [...] affect anyone group of individuals.Performed By: #### [id number] #### [facility] ([facility]) [address] [place] [address]Kngdlwo [Mass/Vol]87 mg/wOXgaqng14-395TujobdbkgqShelby Memorial HospitalComment on above:Performed By: #### [id number] #### [facility] ([facility]) [address] [place] [address]Prozqwvqr [Moles/Vol]4.4 mmol/LNormal3.5-5.1UnShelby Memorial HospitalComment on above:Performed By: #### [id number] #### [facility] ([facility]) [address] [place] [address]Nifzyag [Mass/Vol]6.9 g/dLNormal6.0-8.3UnShelby Memorial HospitalComment on above:Performed By: #### [id number] #### [facility] ([facility]) [address] [place] [address]Dbxndf [Moles/Vol]133 mmol/ZNqh671-574KfwyfxmijiShelby Memorial HospitalComment on above:Performed By: #### [id number] #### [facility] ([facility] [address] [place], [place] [address]Ssqu nitrogen [Mass/Vol]61 mg/dLHigh7-25UnShelby Memorial HospitalComment on above:Performed By: #### [id number] #### [facility] ([facility] [address] [place], [place] [address]TUMH NITROGEN/CREATININE (MASS RATIO) IN SER/PLAS85.9Normal [facility] HospitalComment on above:Performed By: #### [id number] #### [facility] ([facility] [address] [place] [address]MOGSAVXRPde 74-86-6120Fhmpfyzil [Mass/Vol]2.2 mg/dLNormal1.9-2.7 [facility] HospitalComment on above:Performed By: #### [id number] #### [facility] ([facility] [address] [facility] [place], [place] [address]WZQXQKQHYQdc 08-95-6467Rfzmvjlob [Mass/Vol]3.1 mg/dLNormal 2.5-5.0UnShelby Memorial HospitalComment on above:Performed By: #### [id number] #### [facility] ([facility] [address] [place], [place] [address]J3, FREEon [phone] (T4) FREE (NG/DL) IN SER/PLAS1.06 ng/dLNormal0.71-1.85UnShelby Memorial HospitalComment on above: Performed By: #### [id number] #### [facility] ([facility] [address] [facility] [place], [place] [address]NOKjn 70-09-8311PCXOSGLEGZC (MIU/L) IN SER/PLAS BY DETECTION LIMIT <= 0.05 MIU/L2.15 mIU/LNormal0.34-5.60UnShelby Memorial Hospital Comment on above:Performed By: #### [id number] #### [facility] ([facility] [address] [place] [address]KVCYP METABOLIC PANELon 16-38-5843Iofeo gap [Moles/Vol]6 mmol/L Low7-20UnShelby Memorial HospitalComment on above:Performed By: #### [id number] #### [facility] ([facility] [address] [place] [address]Rwhgxnt [Mass/Vol]9.6 mg/dLNormal8.6-10.3UnShelby Memorial HospitalComment on above:Performed By: #### [id number] #### [facility] ([facility]) [address] [place] [address]Szzzwaot [Moles/Vol]99 mmol/QHftrjo03-247DwwxototujShelby Memorial HospitalComment on above:Performed By: #### [id number] #### [facility] ([facility] [address] [place] [place] [address]CL0 [Moles/Vol]31 mmol/YHqiikt31-04GhspjfuqcdShelby Memorial HospitalComment on above:Performed By: #### [id number] #### [facility] ([facility] [address] [place] [address]Cacfpnovcf [Mass/Vol]0.96 mg/dLNormal0.70-1.30UnShelby Memorial HospitalComment on above:Performed By: #### [id number] #### [facility] ([facility]) [address] [place] [address]VBXDUCXIOC FILTRATION RATE ML/MIN/1.73 SQ M.RLGKUSKDO75.4 mL/min/1.73m*2Normal>60.0UnShelby Memorial HospitalComment on above: Result Comment: The [facility]???s estimated glomerular filtration rate (eGFR) will [...] affect anyone group of individuals.Performed By: #### [id number] #### [facility] ([facility] [address] [place] [address]Qfkoajy [Mass/Vol]104 mg/dXUbod09-493NkmevrvnayShelby Memorial HospitalComment on above:Performed By: #### [id number] #### [facility] ([facility]) [address] [place], [place] [address]Tzmxakjdn [Moles/Vol]5.3 mmol/LHigh3.5-5.1UnShelby Memorial HospitalComment on above:Performed By: #### [id number] #### [facility] ([facility]) [address] [place] [address]Kxxvdz [Moles/Vol]131 mmol/GMmz232-624KafaimxpbaShelby Memorial HospitalComment on above:Performed By: #### [id number] #### [facility] ([facility]) [address] [place] [address]Smvu nitrogen [Mass/Vol]61 mg/dLHigh7-25UnShelby Memorial HospitalComment on above:Performed By: #### [id number] #### [facility] ([facility]) [address] [place], [place] [address]RAJJ NITROGEN/CREATININE (MASS RATIO) IN SER/PLAS63.5Normal [facility] HospitalComment on above:Performed By: #### [id number] #### [facility] ([facility] [address] [place], [place] [address]OGZ WITH AUTO DIFFERENTIALon [id number] (Bld) [#/Vol] 0.03 10*3/uLNormal0.00-0.20UnShelby Memorial HospitalComment on above: Performed By: #### [id number] #### [facility] ([facility] [address] [place] [place], [place] [address]Zgcatddfo/100 WBC (Bld)0.4 %Normal0.0-1.0UnShelby Memorial HospitalComment on above:Performed By: #### [id number] #### [facility] ([facility]) [address] [place] [address]Kfmaxzmaazu (Bld) [#/Vol]0.23 10*3/uLNormal0.00-0.50UnShelby Memorial HospitalComment on above:Performed By: #### [id number] #### [facility] ([facility]) [address] [place] [address]Ljnoicfiarc/100 WBC (Bld)3.0 %Normal0.0-6.0UnShelby Memorial HospitalComment on above:Performed By: #### [id number] #### [facility] ([facility]) [address] [place], [place] [address]Oxgwiknhegc distribution width (RBC) [Ratio]15.9 %High11.5-15.0 [facility] HospitalComment on above:Performed By: #### [id number] #### [facility] ([facility] [address] [place], [place] [address]ZIBBNDVEHAB MEAN CORPUSCULAR HEMOGLOBIN CONCENTRATION (G/DL) BY GCYCSRXIJ39.4 g/dLLow32.0-35.0UnShelby Memorial HospitalComment on above:Performed By: #### [id number] #### [facility] ([facility]) [address] [place], [place] [address]Jkidljgsfq (Bld) [Volume fraction]27.1 %Low39.0-55.0UnShelby Memorial HospitalComment on above:Performed By: #### [id number] #### [facility] ([facility] [address] [place], [place] [address]Qupaqrcdrx (Bld) [Mass/Vol]8.5 g/dLLow13.0-17.0UnShelby Memorial HospitalComment on above:Performed By: #### [id number] #### [facility] [address] [place], [place] [address]Ishiyhav granulocytes (Bld) [#/Vol]0.04 10*3/uLNormal0.00-0.20 [facility] HospitalComment on above:Performed By: #### [id number] #### [facility] ([facility]) [address] [place] [address]Hxiebzny granulocytes/100 WBC (Bld)0.5 %Normal0.0-1.0UnShelby Memorial HospitalComment on above:Performed By: #### [id number] #### [facility] ([facility]) [address] [place], [place] [address]Peouevgxlpp (Bld) [#/Vol]1.02 10*3/uLLow1.20-4.00UnShelby Memorial HospitalComment on above:Performed By: #### [id number] #### [facility] ([facility]) [address] [place], [place] [address]Agkvgrhvdav/100 WBC (Bld)13.3 %Low20.0-45.0UnShelby Memorial HospitalComment on above:Performed By: #### [id number] #### [facility] ([facility]) [address] [place], [place] [address]OUT (RBC) [Entitic mass]30.7 gjXawoem55.0-33.0UnShelby Memorial HospitalComment on above:Performed By: #### [id number] #### [facility] ([facility]) [address] [place], [place] [address]FTI (RBC) [Entitic vol]97.8 uJQqnkey40.0-98.0UnShelby Memorial HospitalComment on above:Performed By: #### [id number] #### [facility] ([facility] [address] [place], [place] [address]Ymptuaorq (Bld) [#/Vol]0.59 10*3/uLNormal0.10-1.00UnShelby Memorial HospitalComment on above:Performed By: #### [id number] #### [facility] ([facility]) [address] [place], [place] [address]Heltvnsoa/100 WBC (Bld)7.7 %Normal5.0-12.0UnShelby Memorial HospitalComment on above:Performed By: #### [id number] #### [facility] ([facility]) [address] [place] [address]Qwycleoqqls (Bld) [#/Vol]5.77 10*3/uLNormal1.60-7.60UnShelby Memorial HospitalComment on above:Performed By: #### [id number] #### [facility] ([facility]) [address] [place] [address]Romrbvflnje/100 WBC (Bld)75.1 %High40.0-72.0UnShelby Memorial HospitalComment on above:Performed By: #### [id number] #### [facility] ([facility]) [address] [place] [address]ANLQ (PER 100 WBCS) BY AUTOMATED COUNT0.0 %Qtbhit7LagtlfvbxoShelby Memorial HospitalComment on above:Performed By: #### [id number] #### [facility] ([facility]) [address] [place] [address]SZNOCYCNH (10*3/UL) IN BLOOD AUTOMATED [id number] 10*3/uLNormal 150-400UnShelby Memorial HospitalComment on above:Performed By: #### [id number] #### [facility] ([facility]) [address] [place] [address]DFL (Bld) [#/Vol]2.77 10*6/uLLow4.20-5.70UnShelby Memorial HospitalComment on above:Performed By: #### [id number] #### [facility] ([facility]) [address] [place] [address]IIL (Bld) [#/Vol]7.68 10*3/uLNormal4.00-10.60UnShelby Memorial HospitalComment on above:Performed By: #### [id number] #### [facility] ([facility]) [address] [place] [address]GOWHYQACHlu 44-27-2512Scxcgqlck [Mass/Vol]2.2 mg/dLNormal1.9-2.7 [facility] HospitalComment on above:Performed By: #### [id number] #### [facility] ([facility]) [address] [place] [id number], FREEon 96-33-5011TEYZAHIQN (T4) FREE (NG/DL) IN SER/PLAS0.92 ng/dLNormal0.71-1.85UnShelby Memorial HospitalComment on above: Performed By: #### [id number] #### [facility] ([facility]) [address] [place] [address]SMGlw 79-90-2018WRUXQLBPBRG (MIU/L) IN SER/PLAS BY DETECTION LIMIT <= 0.05 MIU/L2.35 mIU/LNormal0.34-5.60UnS[facility] Hospital Comment on above:Performed By: #### [id number] #### [facility] ([facility]) [address] [place] [address]FPHeh 72-26-4554Fvarchlyloc distribution width (RBC) [Ratio]16.0 %High11.5-15.0UnShelby Memorial HospitalComment on above:Performed By: #### [id number] #### [facility] ([facility]) [address] [place] [address]ZTWWFQIQATV MEAN CORPUSCULAR HEMOGLOBIN CONCENTRATION (G/DL) BY EPFJADIQE84.8 g/dLLow32.0-35.0UnShelby Memorial HospitalComment on above:Performed By: #### [id number] #### [facility] ([facility]) [address] [place], [place] [address]Apkogjkccu (Bld) [Volume fraction]32.2 %Low39.0-55.0UnShelby Memorial HospitalComment on above:Performed By: #### [id number] #### [facility] ([facility]) [address] [place] [address]Dsxrlvajcg (Bld) [Mass/Vol]9.6 g/dLLow13.0-17.0UnShelby Memorial HospitalComment on above:Performed By: #### [id number] #### [facility] ([facility]) [address] [place] [address]HBJ (RBC) [Entitic mass]30.5 mcQfltaf57.0-33.0UnShelby Memorial HospitalComment on above:Performed By: #### [id number] #### [facility] ([facility]) [address] [place] [address]APF (RBC) [Entitic vol]102.2 aXFuhq56.0-98.0UnShelby Memorial HospitalComment on above:Performed By: #### [id number] #### [facility] ([facility]) [address] [place] [address]JONPZCEDG (10*3/UL) IN BLOOD AUTOMATED ZSKBG064 10*3/uLNormal 150-400UnShelby Memorial HospitalComment on above:Performed By: #### [id number] #### [facility] ([facility]) [address] [place] [address]XYZ (Bld) [#/Vol]3.15 10*6/uLLow4.20-5.70UnShelby Memorial HospitalComment on above:Performed By: #### [id number] #### [facility] ([facility]) [address] [place] [address]AUZ (Bld) [#/Vol]7.80 10*3/uLNormal4.00-10.60UnShelby Memorial HospitalComment on above:Performed By: #### [id number] #### [facility] ([facility]) [address] [place] [address]WIJAIFAIBDSSD METABOLIC PANELon 38-79-3971Cfkrxii [Mass/Vol]3.7 g/dLNormal3.5-5.7UnShelby Memorial HospitalComment on above:Performed By: #### [id number] #### [facility] ([facility]) [address] [place] [address]ZET [Catalytic activity/Vol]112 U/ZTcea00-222MaqmzmcscsShelby Memorial HospitalComment on above:Performed By: #### [id number] #### [facility] ([facility]) [address] [place], [place] [address]EYU [Catalytic activity/Vol]13 U/LNormal7-52UnShelby Memorial HospitalComment on above:Performed By: #### [id number] #### [facility] ([facility]) [address] [place], [place] [address]Okpsq gap [Moles/Vol]12 mmol/LNormal7-20UnShelby Memorial HospitalComment on above:Performed By: #### [id number] #### [facility] ([facility]) [address] [place], [place] [address]WEX [Catalytic activity/Vol]19 U/OYryull84-27WzerarwsahShelby Memorial HospitalComment on above:Performed By: #### [id number] #### [facility] ([facility]) [address] [place], [place] [address]Fmmnngbax [Mass/Vol]0.3 mg/dLNormal0.3-1.0UnShelby Memorial HospitalComment on above:Performed By: #### [id number] #### [facility] ([facility]) [address] [place], [place] [address]Ehuwmnl [Mass/Vol]9.9 mg/dLNormal8.6-10.3UnShelby Memorial HospitalComment on above:Performed By: #### [id number] #### [facility] ([facility]) [address] [place], [place] [address]Vnwfwfhq [Moles/Vol]100 mmol/HMnmjmr11-926YknbizvoifShelby Memorial HospitalComment on above:Performed By: #### [id number] #### [facility] ([facility]) [address] [place], [place] [address]DT6 [Moles/Vol]25 mmol/MMmxtzf06-49PufwtkgrrnShelby Memorial HospitalComment on above:Performed By: #### [id number] #### [facility] ([facility]) [address] [place] [address]Tsuxxapqjq [Mass/Vol]0.62 mg/dLLow0.70-1.30UnShelby Memorial HospitalComment on above:Performed By: #### [id number] #### [facility] ([facility]) [address] [place] [address]CUETRHWAQB FILTRATION RATE ML/MIN/1.73 SQ M.IZXXPTRDK57.8 mL/min/1.73m*2Normal>60.0UnShelby Memorial HospitalComment on above: Result Comment: [facility]???s estimated glomerular filtration rate (eGFR) will [...] group of individuals.Performed By: #### [id number] #### [facility] ([facility]) [address] [place] [address]Mubeiww [Mass/Vol]99 mg/zDGbfqrs33-538JxovsrrwqeShelby Memorial HospitalComment on above:Performed By: #### [id number] #### [facility] [address] [place] [address]Mdrnmzvdm [Moles/Vol]4.6 mmol/LNormal3.5-5.1UnShelby Memorial HospitalComment on above:Performed By: #### [id number] #### [facility] ([facility]) [address] [place] [address]Zlnxswy [Mass/Vol]7.4 g/dLNormal6.0-8.3UnShelby Memorial HospitalComment on above:Performed By: #### [id number] #### [facility] ([facility]) [address] [place] [address]Cdqjvk [Moles/Vol]132 mmol/HNhv110-250WjvxrtgejdShelby Memorial HospitalComment on above:Performed By: #### [id number] #### [facility] ([facility] [address] [address] [place], [place] [address]Jafu nitrogen [Mass/Vol]47 mg/dLHigh7-25UnShelby Memorial HospitalComment on above:Performed By: #### [id number] #### [facility] ([facility]) [address] [place], [place] [address]ODKF NITROGEN/CREATININE (MASS RATIO) IN SER/PLAS75.8Normal [facility] HospitalComment on above:Performed By: #### [id number] #### [facility] ([facility]) [address] [place], [place] [address]EFGCHNAHMpb 77-07-7568Lmeldkpzm [Mass/Vol]1.9 mg/dLNormal1.9-2.7 [facility] HospitalComment on above:Performed By: #### [id number] #### [facility] ([facility]) [address] [place], [place] [address]XVTFTCKSOHte 98-59-4461Xkaagkkid [Mass/Vol]3.1 mg/dLNormal 2.5-5.0UnShelby Memorial HospitalComment on above:Performed By: #### [id number] #### [facility] ([facility]) [address] [place], [place] [address]JUOqk 96-81-5612Skyfprtdymf distribution width (RBC) [Ratio]15.6 %High11.5-15.0UnShelby Memorial HospitalComment on above:Performed By: #### [id number] #### [facility] ([facility]) [address] [place], [place] [address]LYEYANXQNLZ MEAN CORPUSCULAR HEMOGLOBIN CONCENTRATION (G/DL) BY FSPUMMQES87.8 g/dLLow32.0-35.0UnShelby Memorial HospitalComment on above:Performed By: #### [id number] #### [facility] ([facility]) [address] [place], [place] [address]Tfgywdynxk (Bld) [Volume fraction]30.2 %Low39.0-55.0UnShelby Memorial HospitalComment on above:Performed By: #### [id number] #### [facility] ([facility]) [address] [place] [address]Rbchavpdqc (Bld) [Mass/Vol]9.3 g/dLLow13.0-17.0UnShelby Memorial HospitalComment on above:Performed By: #### [id number] #### [facility] ([facility]) [address] [place], [place] [address]WUO (RBC) [Entitic mass]30.7 xiQogtsd59.0-33.0UnShelby Memorial HospitalComment on above:Performed By: #### [id number] #### [facility] ([facility]) [address] [place] [address]TBW (RBC) [Entitic vol]99.7 dGNtey95.0-98.0UnShelby Memorial HospitalComment on above:Performed By: #### [id number] #### [facility] ([facility]) [address] [place], [place] [address]SCGLKWQEB (10*3/UL) IN BLOOD AUTOMATED [id number] 10*3/uLNormal 150-400UnShelby Memorial HospitalComment on above:Performed By: #### [id number] #### [facility] ([facility]) [address] [place], [place] [address]YVL (Bld) [#/Vol]3.03 10*6/uLLow4.20-5.70UnShelby Memorial HospitalComment on above:Performed By: #### [id number] #### [facility] ([facility]) [address] [place], [place] [address]QDK (Bld) [#/Vol]6.87 10*3/uLNormal4.00-10.60UnShelby Memorial HospitalComment on above:Performed By: #### [id number] #### [facility] ([facility]) [address] [place], [place] [address]CIHBSUDZRYWCX METABOLIC PANELon 15-10-8232Bcdndsi [Mass/Vol]3.3 g/dLLow3.5-5.7UnShelby Memorial HospitalComment on above:Performed By: #### [id number] #### [facility] ([facility]) [address] [place], [place] [address]BEA [Catalytic activity/Vol]111 U/KXfkd14-604EijhlamgupShelby Memorial HospitalComment on above:Performed By: #### [id number] #### [facility] ([facility]) [address] [place], [place] [address]RTT [Catalytic activity/Vol]15 U/LNormal7-52UnShelby Memorial HospitalComment on above:Performed By: #### [id number] #### [facility] ([facility]) [address] [place], [place] [address]Egytf gap [Moles/Vol]10 mmol/LNormal7-20UnShelby Memorial HospitalComment on above:Performed By: #### [id number] #### [facility] ([facility]) [address] [place], [place] [address]OOF [Catalytic activity/Vol]17 U/TSqiyas66-06YbngrwttqaShelby Memorial HospitalComment on above:Performed By: #### [id number] #### [facility] ([facility]) [address] [place], [place] [address]Nkazclzby [Mass/Vol]0.3 mg/dLNormal0.3-1.0UnShelby Memorial HospitalComment on above:Performed By: #### [id number] #### [facility] ([facility]) [address] [place], [place] [address]Xzjhjle [Mass/Vol]9.2 mg/dLNormal8.6-10.3UnShelby Memorial HospitalComment on above:Performed By: #### [id number] #### [facility] ([facility]) [address] [place], [place] [address]Mjliezsd [Moles/Vol]101 mmol/CEnibwu73-180BkawcgnthtShelby Memorial HospitalComment on above:Performed By: #### [id number] #### [facility] ([facility]) [address] [place] [address]XP1 [Moles/Vol]28 mmol/ZYbdsad93-32VegxfcvlpsShelby Memorial HospitalComment on above:Performed By: #### [id number] #### [facility] ([facility]) [address] [place] [address]Kzwlcozqey [Mass/Vol]0.70 mg/dLNormal0.70-1.30UnShelby Memorial HospitalComment on above:Performed By: #### [id number] #### [facility] ([facility]) [address] [place] [address]NSMSHYYYIE FILTRATION RATE ML/MIN/1.73 SQ M.QWUEAQNXJ20.4 mL/min/1.73m*2Normal>60.0UnShelby Memorial HospitalComment on above: Result Comment: [facility]???s estimated glomerular filtration rate (eGFR) will [...] affect anyone group of individuals.Performed By: #### [id number] #### [facility] ([facility]) [address] [place] [address]Vseplar [Mass/Vol]87 mg/wYKohxxy67-782RjqeeogxpnShelby Memorial HospitalComment on above:Performed By: #### [id number] #### [facility] ([facility]) [address] [place] [address]Eubkonhrq [Moles/Vol]4.8 mmol/LNormal3.5-5.1UnShelby Memorial HospitalComment on above:Performed By: #### [id number] #### [facility] ([facility]) [address] [place] [address]Xybxyty [Mass/Vol]6.5 g/dLNormal6.0-8.3UnShelby Memorial HospitalComment on above:Performed By: #### [id number] #### [facility] ([facility] [address] [place] [address]Cyclcv [Moles/Vol]134 mmol/GOmt041-396XyledzzmirShelby Memorial HospitalComment on above:Performed By: #### [id number] #### [facility] [address] [place] [address]Gewr nitrogen [Mass/Vol]39 mg/dLHigh7-25UnShelby Memorial HospitalComment on above:Performed By: #### [id number] #### [facility] ([facility] [address] [place] [address]MPXV NITROGEN/CREATININE (MASS RATIO) IN SER/PLAS55.7Normal [facility] HospitalComment on above:Performed By: #### [id number] #### [facility] ([facility] [address] [place] [address]VGXJDRTECmr 70-52-7[address]Yekvtiiln [Mass/Vol]2.0 mg/dLNormal1.9-2.7 [facility] HospitalComment on above:Performed By: #### [id number] #### [facility] [address] [place] [address]SLSLNAGWWJoz 56-97-3624Dktsboiwm [Mass/Vol]3.2 mg/dLNormal 2.5-5.0UnShelby Memorial HospitalComment on above:Performed By: #### [id number] #### [facility] ([facility] [address] [place], [place] [address]KDJUNYMOUNNWSsn 20-37-5261OFYYPPB?UnknownNormalUniversUniversity Hospitals Geauga Medical CenterComment on above:Performed By: #### [id number] #### [facility] [address] [place], [place] [address]Glxbexzpg [Mass/Vol]119 mg/pQQjptfn08-644CzjhmpxggwShelby Memorial HospitalComment on above:Result Comment: TRIGLYCERIDE REFERENCE RANGE: 20 YEARS AND OLDER CARDIOVASCULAR RISK LESS THAN 150 mg/dL LOW RISK 150 TO 199 mg/dL BORDERLINE RISK 200 mg/dL AND GREATER HIGH RISKPerformed By: #### [id number] #### [facility] ([facility] [address] [place], [place] [address]SRGSCG BLOOD X 1, STOOLon 98-17-9167APQAUYLQJU GASTROINTESTINAL PRESENCE IN STOOLNegativeNormalNegative, None DetectedUnShelby Memorial HospitalComment on above:Performed By: #### [id number] #### [facility] ([facility]) [address] [place], [place] [address]QJWic 75-27-6620Psfqlovhizl distribution width (RBC) [Ratio]15.7 %High11.5-15.0UnShelby Memorial HospitalComment on above:Performed By: #### [id number] #### [facility] ([facility] [address] [place], [place] [address]WICJUEILFBR MEAN CORPUSCULAR HEMOGLOBIN CONCENTRATION (G/DL) BY HMQCROTFE35.6 g/dLLow32.0-35.0UnShelby Memorial HospitalComment on above:Performed By: #### [id number] #### [facility] ([facility] [address] [place], [place] [address]Fssofwljej (Bld) [Volume fraction]27.8 %Low39.0-55.0UnShelby Memorial HospitalComment on above:Performed By: #### [id number] #### [facility] ([facility]) [address] [place], [place] [address]Tvbpdllxtl (Bld) [Mass/Vol]8.5 g/dLLow13.0-17.0UnShelby Memorial HospitalComment on above:Performed By: #### [id number] #### [facility] ([facility] [address] [place], [place] [address]FQQ (RBC) [Entitic mass]30.1 awBrxuqy06.0-33.0UnShelby Memorial HospitalComment on above:Performed By: #### [id number] #### [facility] ([facility] [address] [place] [address]RTB (RBC) [Entitic vol]98.6 mXQpoo30.0-98.0UnShelby Memorial HospitalComment on above:Performed By: #### [id number] #### [facility] ([facility]) [address] [place] [address]PLOLVFNBA (10*3/UL) IN BLOOD AUTOMATED [id number] 10*3/uLNormal 150-400UnShelby Memorial HospitalComment on above:Performed By: #### [id number] #### [facility] ([facility]) [address] [place] [address]JDU (Bld) [#/Vol]2.82 10*6/uLLow4.20-5.70UnShelby Memorial HospitalComment on above:Performed By: #### [id number] #### [facility] ([facility]) [address] [place] [address]HKG (Bld) [#/Vol]5.28 10*3/uLNormal4.00-10.60UnShelby Memorial HospitalComment on above:Performed By: #### [id number] #### [facility] ([facility]) [address] [place] [address]DZDWOLXJVAXJS METABOLIC PANELon 25-20-4895Lbmmpsx [Mass/Vol]3.1 g/dLLow3.5-5.7UnShelby Memorial HospitalComment on above:Performed By: #### [id number] #### [facility] ([facility]) [address] [place] [address]MOG [Catalytic activity/Vol]106 U/LNnmb21-650ZxokuhwlfpShelby Memorial HospitalComment on above:Performed By: #### [id number] #### [facility] ([facility]) [address] [place] [address]RCO [Catalytic activity/Vol]14 U/LNormal7-52UnShelby Memorial HospitalComment on above:Performed By: #### [id number] #### [facility] ([facility]) [address] [place], [place] [address]Byatf gap [Moles/Vol]6 mmol/LLow7-20UnShelby Memorial HospitalComment on above:Performed By: #### [id number] #### [facility] ([facility]) [address] [address]GWY [Catalytic activity/Vol]18 U/SWjzhet39-30BchcvmxkdzShelby Memorial HospitalComment on above:Performed By: #### [id number] #### [facility] ([facility]) [address] [place], [place] [address]Srokteion [Mass/Vol]0.3 mg/dLNormal0.3-1.0UnShelby Memorial HospitalComment on above:Performed By: #### [id number] #### [facility] ([facility]) [address] [place], [place] [address]Ngysmpb [Mass/Vol]9.4 mg/dLNormal8.6-10.3UnShelby Memorial HospitalComment on above:Performed By: #### [id number] #### [facility] ([facility]) [address] [place], [place] [address]Nnjjrjup [Moles/Vol]101 mmol/VQeflzf08-607PqdjamjcivShelby Memorial HospitalComment on above:Performed By: #### [id number] #### [facility] ([facility]) [address] [place], [place] [address]GN2 [Moles/Vol]34 mmol/YUhis94-14UxvloscgzqShelby Memorial HospitalComment on above:Performed By: #### [id number] #### [facility] ([facility]) [address] [place], [place] [address]Aksyqjrcnm [Mass/Vol]0.67 mg/dLLow0.70-1.30UnShelby Memorial HospitalComment on above:Performed By: #### [id number] #### [facility] ([facility]) [address] [place] [address]UZFCKZYDEF FILTRATION RATE ML/MIN/1.73 SQ M.WMLYAUIEY13.6 mL/min/1.73m*2Normal>60.0UnShelby Memorial HospitalComment on above: Result Comment: [facility]???s estimated glomerular filtration rate (eGFR) will [...] affect anyone group of individuals.Performed By: #### [id number] #### [facility] ([facility]) [address] [place] [address]Eelxkte [Mass/Vol]90 mg/lQJvyekg58-819KmyoiiamwyShelby Memorial HospitalComment on above:Performed By: #### [id number] #### [facility] ([facility]) [address] [place] [address]Xgvtelgxs [Moles/Vol]4.8 mmol/LNormal3.5-5.1UnShelby Memorial HospitalComment on above:Performed By: #### [id number] #### [facility] ([facility]) [address] [place] [address]Itbbmlb [Mass/Vol]6.5 g/dLNormal6.0-8.3UnShelby Memorial HospitalComment on above:Performed By: #### [id number] #### [facility] ([facility]) [address] [place] [address]Xfoeat [Moles/Vol]136 mmol/RFkmzmu281-809AxvaznyiosShelby Memorial HospitalComment on above:Performed By: #### [id number] #### [facility] [address] [place] [address]Byfk nitrogen [Mass/Vol]42 mg/dLHigh7-25UnShelby Memorial HospitalComment on above:Performed By: #### [id number] #### [facility] ([facility]) [address] [address]VDSC NITROGEN/CREATININE (MASS RATIO) IN SER/PLAS62.7Normal [facility] HospitalComment on above:Performed By: #### [id number] #### [facility] ([facility]) [address] [address]YARVKWERVlv 67-29-1622Zgkmanyaq [Mass/Vol]2.0 mg/dLNormal1.9-2.7 [facility] HospitalComment on above:Performed By: #### [id number] #### [facility] ([facility]) [address] [address]MXUNLQCNXBqb 63-76-3515Mqoqjrrpp [Mass/Vol]3.4 mg/dLNormal 2.5-5.0UnShelby Memorial HospitalComment on above:Performed By: #### [id number] #### [facility] ([facility]) [address] [address]YCQTM METABOLIC PANELon 34-59-6578Qhpbn gap [Moles/Vol]8 mmol/L Normal7-20UnShelby Memorial HospitalComment on above:Performed By: #### [id number] #### [facility] ([facility]) [address] [place] [address]Uyklzxi [Mass/Vol]9.4 mg/dLNormal8.6-10.3UnShelby Memorial HospitalComment on above:Performed By: #### [id number] #### [facility] ([facility]) [address] [place] [address]Tlsnwgwe [Moles/Vol]98 mmol/GQwyqbe88-234XdmzcgyagdShelby Memorial HospitalComment on above:Performed By: #### [id number] #### [facility] [address] [place] [address]KT0 [Moles/Vol]34 mmol/DEspu49-13BympqvjmicShelby Memorial HospitalComment on above:Performed By: #### [id number] #### [facility] ([facility]) [address] [place] [address]Kwrmgxmnsq [Mass/Vol]0.96 mg/dLNormal0.70-1.30UnShelby Memorial HospitalComment on above:Performed By: #### [id number] #### [facility] ([facility]) [address] [place] [address]VDIHGVSUJG FILTRATION RATE ML/MIN/1.73 SQ M.HRTNSTDRC88.4 mL/min/1.73m*2Normal>60.0UnShelby Memorial HospitalComment on above: Result Comment: [facility]???s estimated glomerular filtration rate (eGFR) will [...] affect anyone group of individuals.Performed By: #### [id number] #### [facility] ([facility]) [address] [place] [address]Trxynyr [Mass/Vol]97 mg/pAZghznp96-299MvmvlioheaShelby Memorial HospitalComment on above:Performed By: #### [id number] #### [facility] ([facility]) [address] [place] [address]Sycctqsto [Moles/Vol]4.6 mmol/LNormal3.5-5.1UnShelby Memorial HospitalComment on above:Performed By: #### [id number] #### [facility] ([facility]) [address] [place] [address]Erapan [Moles/Vol]135 mmol/CUzf005-048QybjpwtxsuShelby Memorial HospitalComment on above:Performed By: #### [id number] #### [facility] ([facility]) [address] [address]Pwbj nitrogen [Mass/Vol]52 mg/dLHigh7-25UnShelby Memorial HospitalComment on above:Performed By: #### [id number] #### [facility] ([facility]) [address] [address]FDMV NITROGEN/CREATININE (MASS RATIO) IN SER/PLAS54.2Normal [facility] HospitalComment on above:Performed By: #### [id number] #### [facility] ([facility]) [address] [place] [address]JIUQYWOQZvi 10-21-2863Ulucjepzw [Mass/Vol]2.2 mg/dLNormal1.9-2.7 [facility] HospitalComment on above:Performed By: #### [id number] #### [facility] ([facility]) [address] [place] [address]VQMua 05-88-6917Owwxydjnmsy distribution width (RBC) [Ratio]15.9 %High11.5-15.0UnShelby Memorial HospitalComment on above:Performed By: #### [id number] #### [facility] ([facility]) [address] [place] [address]QBKNSSAMQLR MEAN CORPUSCULAR HEMOGLOBIN CONCENTRATION (G/DL) BY RBTGPHVOK18.2 g/dLLow32.0-35.0UnShelby Memorial HospitalComment on above:Performed By: #### [id number] #### [facility] ([facility]) [address] [place] [address]Tiyahkesfa (Bld) [Volume fraction]28.1 %Low39.0-55.0UnShelby Memorial HospitalComment on above:Performed By: #### [id number] #### [facility] ([facility]) [address] [place] [address]Ttuhuzacoj (Bld) [Mass/Vol]8.5 g/dLLow13.0-17.0UnShelby Memorial HospitalComment on above:Performed By: #### [id number] #### [facility] ([facility]) [address] [place] [address]BYV (RBC) [Entitic mass]30.5 fjTporhb81.0-33.0UnShelby Memorial HospitalComment on above:Performed By: #### [id number] #### [facility] ([facility]) [address] [place] [address]GWC (RBC) [Entitic vol]100.7 dNBloy60.0-98.0UnShelby Memorial HospitalComment on above:Performed By: #### [id number] #### [facility] ([facility]) [address] [place] [address]PEXCRRJKF (10*3/UL) IN BLOOD AUTOMATED [id number] 10*3/uLNormal 150-400UnShelby Memorial HospitalComment on above:Performed By: #### [id number] #### [facility] ([facility]) [address] [place] [address]VNU (Bld) [#/Vol]2.79 10*6/uLLow4.20-5.70UnShelby Memorial HospitalComment on above:Performed By: #### [id number] #### [facility] ([facility]) [address] [place] [address]KQP (Bld) [#/Vol]7.91 10*3/uLNormal4.00-10.60UnShelby Memorial HospitalComment on above:Performed By: #### [id number] #### [facility] ([facility]) [address] [place] [address]KNHRKKUYUHWSR METABOLIC PANELon 36-47-5041Wwfrjpo [Mass/Vol]3.1 g/dLLow3.5-5.7UnShelby Memorial HospitalComment on above:Performed By: #### [id number] #### [facility] ([facility]) [address] [place] [address]DRG [Catalytic activity/Vol]108 U/BMjed50-519GrstyknnkxShelby Memorial HospitalComment on above:Performed By: #### [id number] #### [facility] ([facility]) [address] [place], [place] [address]NTL [Catalytic activity/Vol]15 U/LNormal7-52UnShelby Memorial HospitalComment on above:Performed By: #### [id number] #### [facility] ([facility]) [address] [place], [place] [address]Omdfs gap [Moles/Vol]7 mmol/LNormal7-20UnShelby Memorial HospitalComment on above:Performed By: #### [id number] #### [facility] ([facility]) [address] [place], [place] [address]JFS [Catalytic activity/Vol]21 U/LZesvet17-71PzqfxppcxaShelby Memorial HospitalComment on above:Performed By: #### [id number] #### [facility] ([facility]) [address] [place], [place] [address]Jcgcpyqha [Mass/Vol]0.2 mg/dLLow0.3-1.0UnShelby Memorial HospitalComment on above:Performed By: #### [id number] #### [facility] ([facility]) [address] [place], [place] [address]Flugjes [Mass/Vol]9.5 mg/dLNormal8.6-10.3UnShelby Memorial HospitalComment on above:Performed By: #### [id number] #### [facility] [address] [place], [place] [address]Aquxwula [Moles/Vol]101 mmol/VHgcwzy84-354JftxuofpiyShelby Memorial HospitalComment on above:Performed By: #### [id number] #### [facility] ([facility]) [address] [place], [place] [address]II8 [Moles/Vol]34 mmol/WXfjd81-07WjcxvirakzShelby Memorial HospitalComment on above:Performed By: #### [id number] #### [facility] ([facility]) [address] [place], [place] [address]Oneyqtpbqk [Mass/Vol]0.99 mg/dLNormal0.70-1.30UnShelby Memorial HospitalComment on above:Performed By: #### [id number] #### [facility] ([facility]) [address] [place] [address]HJGPXNJICK FILTRATION RATE ML/MIN/1.73 SQ M.RXWZRRFNW38.6 mL/min/1.73m*2Normal>60.0UnShelby Memorial HospitalComment on above: Result Comment: [facility]???s estimated glomerular filtration rate (eGFR) will [...] group of individuals.Performed By: #### [id number] #### [facility] ([facility]) [address] [place] [address]Qlxjvds [Mass/Vol]105 mg/hELtbv09-270PvhafpphfnShelby Memorial HospitalComment on above:Performed By: #### [id number] #### [facility] ([facility]) [address] [place] [address]Fbijzkpar [Moles/Vol]4.6 mmol/LNormal3.5-5.1UnShelby Memorial HospitalComment on above:Performed By: #### [id number] #### [facility] ([facility]) [address] [place] [address]Wrtmdea [Mass/Vol]6.4 g/dLNormal6.0-8.3UnShelby Memorial HospitalComment on above:Performed By: #### [id number] #### [facility] ([facility]) [address] [address]Evvjyr [Moles/Vol]137 mmol/JOttcsf425-538UgpigfidftShelby Memorial HospitalComment on above:Performed By: #### [id number] #### [facility] ([facility]) [address] [place], [place] [address]Gbwc nitrogen [Mass/Vol]45 mg/dLHigh7-25UnShelby Memorial HospitalComment on above:Performed By: #### [id number] #### [facility] ([facility]) [address] [place], [place] [address]UBPM NITROGEN/CREATININE (MASS RATIO) IN SER/PLAS45.5Normal [facility] HospitalComment on above:Performed By: #### [id number] #### [facility] ([facility]) [address] [address]VSYNNAORJfl 47-38-1962Bctgyrovs [Mass/Vol]2.1 mg/dLNormal1.9-2.7 [facility] HospitalComment on above:Performed By: #### [id number] #### [facility] ([facility]) [address] [place], [place] [address]BMPHHBQZUKof 51-00-8698Dnmuhfkei [Mass/Vol]3.2 mg/dLNormal 2.5-5.0UnShelby Memorial HospitalComment on above:Performed By: #### [id number] #### [facility] ([facility]) [address] [place], [place] [address]GGJQK METABOLIC PANELon 75-13-1367Jhgaz gap [Moles/Vol]9 mmol/L Normal7-20UnShelby Memorial HospitalComment on above:Performed By: #### [id number] #### [facility] ([facility]) [address] [place], [place] [address]Taqpkwq [Mass/Vol]9.2 mg/dLNormal8.6-10.3UnShelby Memorial HospitalComment on above:Performed By: #### [id number] #### [facility] ([facility]) [address] [place], [place] [address]Veelbksk [Moles/Vol]101 mmol/ZMyyvfn52-006ItkiymwasnShelby Memorial HospitalComment on above:Performed By: #### [id number] #### [facility] ([facility]) [address] [place] [address]PS8 [Moles/Vol]32 mmol/YOazw08-16GmhsxssidiShelby Memorial HospitalComment on above:Performed By: #### [id number] #### [facility] ([facility]) [address] [place] [address]Ooumvtioyn [Mass/Vol]0.72 mg/dLNormal0.70-1.30UnShelby Memorial HospitalComment on above:Performed By: #### [id number] #### [facility] ([facility]) [address] [place] [address]KMJWIKERPZ FILTRATION RATE ML/MIN/1.73 SQ M.PEAHLVHLQ32.7 mL/min/1.73m*2Normal>60.0UnShelby Memorial HospitalComment on above: Result Comment: [facility]???s estimated glomerular filtration rate (eGFR) will [...] affect anyone group of individuals.Performed By: #### [id number] #### [facility] ([facility]) [address] [place] [address]Apuzlzu [Mass/Vol]120 mg/cJSgzr59-964MdrqiparidShelby Memorial HospitalComment on above:Performed By: #### [id number] #### [facility] ([facility]) [address] [place] [address]Pvgcxstpr [Moles/Vol]4.5 mmol/LNormal3.5-5.1UnShelby Memorial HospitalComment on above:Performed By: #### [id number] #### [facility] ([facility]) [address] [place], [place] [address]Gcbfdj [Moles/Vol]137 mmol/ILqfltq398-210NdvidjhpbuShelby Memorial HospitalComment on above:Performed By: #### [id number] #### [facility] ([facility]) [address] [place] [address]Cmrz nitrogen [Mass/Vol]39 mg/dLHigh7-25UnShelby Memorial HospitalComment on above:Performed By: #### [id number] #### [facility] ([facility]) [address] [place], [place] [address]UFGX NITROGEN/CREATININE (MASS RATIO) IN SER/PLAS54.2Normal [facility] HospitalComment on above:Performed By: #### [id number] #### [facility] ([facility]) [address] [place], [place] [address]TRD WITH AUTO DIFFERENTIALon 80-04-4144Klmctpkpe (Bld) [#/Vol] 0.02 10*3/uLNormal0.00-0.20UnShelby Memorial HospitalComment on above: Performed By: #### [id number] #### [facility] ([facility]) [address] [place], [place] [address]Qvncxnxvs/100 WBC (Bld)0.3 %Normal0.0-1.0UnShelby Memorial HospitalComment on above:Performed By: #### [id number] #### [facility] ([facility]) [address] [place] [address]Cpppfqjtall (Bld) [#/Vol]0.80 10*3/uLHigh0.00-0.50UnShelby Memorial HospitalComment on above:Performed By: #### [id number] #### [facility] ([facility]) [address] [place] [address]Gohnikpzwbh/100 WBC (Bld)12.1 %High0.0-6.0UnShelby Memorial HospitalComment on above:Performed By: #### [id number] #### [facility] ([facility]) [address] [place] [address]Gznhccizvhg distribution width (RBC) [Ratio]15.8 %High11.5-15.0 [facility] HospitalComment on above:Performed By: #### [id number] #### [facility] ([facility]) [address] [place] [address]LFNRXCRFETU MEAN CORPUSCULAR HEMOGLOBIN CONCENTRATION (G/DL) BY TTKCZRMTD58.1 g/dLLow32.0-35.0UnShelby Memorial HospitalComment on above:Performed By: #### [id number] #### [facility] ([facility]) [address] [place] [address]Bcsbylumbv (Bld) [Volume fraction]27.3 %Low39.0-55.0UnShelby Memorial HospitalComment on above:Performed By: #### [id number] #### [facility] ([facility]) [address] [place] [address]Srsmlxnsxv (Bld) [Mass/Vol]8.5 g/dLLow13.0-17.0UnShelby Memorial HospitalComment on above:Performed By: #### [id number] #### [facility] ([facility]) [address] [place] [address]Otvbajbd granulocytes (Bld) [#/Vol]0.02 10*3/uLNormal0.00-0.20 [facility] HospitalComment on above:Performed By: #### [id number] #### [facility] ([facility]) [address] [place] [address]Kcymsyem granulocytes/100 WBC (Bld)0.3 %Normal0.0-1.0UnShelby Memorial HospitalComment on above:Performed By: #### [id number] #### [facility] [address] [place] [address]Psjynfzyher (Bld) [#/Vol]0.89 10*3/uLLow1.20-4.00UnShelby Memorial HospitalComment on above:Performed By: #### [id number] #### [facility] [address] [place], [place] [address]Rcmyrbbzsla/100 WBC (Bld)13.4 %Low20.0-45.0UnShelby Memorial HospitalComment on above:Performed By: #### [id number] #### [facility] ([facility]) [address] [place] [address]JTD (RBC) [Entitic mass]30.5 aeFducjy81.0-33.0UnShelby Memorial HospitalComment on above:Performed By: #### [id number] #### [facility] ([facility] [address] [facility] [place], [place] [address]SUD (RBC) [Entitic vol]97.8 uXFnhuay66.0-98.0UnShelby Memorial HospitalComment on above:Performed By: #### [id number] #### [facility] ([facility]) [address] [place], [place] [address]Alwwiwfxg (Bld) [#/Vol]0.53 10*3/uLNormal0.10-1.00UnShelby Memorial HospitalComment on above:Performed By: #### [id number] #### [facility] ([facility] [address] [place], [place] [address]Oaopummng/100 WBC (Bld)8.0 %Normal5.0-12.0UnShelby Memorial HospitalComment on above:Performed By: #### [id number] #### [facility] ([facility] [address] [facility] [place], [place] [address]Ydyqpsaqynb (Bld) [#/Vol]4.37 10*3/uLNormal1.60-7.60UnShelby Memorial HospitalComment on above:Performed By: #### [id number] #### [facility] ([facility] [address] [facility] [place], [place] [address]Vbwrodikrju/100 WBC (Bld)65.9 %Mmgaos31.0-72.0UnShelby Memorial HospitalComment on above:Performed By: #### [id number] #### [facility] ([facility] [address] [facility] [place] [address]MUDB (PER 100 WBCS) BY AUTOMATED COUNT0.0 %Eecvim2JdlcefktcmShelby Memorial HospitalComment on above:Performed By: #### [id number] #### [facility] ([facility] [address] [place] [address]SODPQJZYB (10*3/UL) IN BLOOD AUTOMATED CBHNX224 10*3/uLNormal 150-400UnShelby Memorial HospitalComment on above:Performed By: #### [id number] #### [facility] ([facility] [address] [place] [address]DFB (Bld) [#/Vol]2.79 10*6/uLLow4.20-5.70UnShelby Memorial HospitalComment on above:Performed By: #### [id number] #### [facility] ([facility]) [address] [place] [address]NAQ (Bld) [#/Vol]6.63 10*3/uLNormal4.00-10.60UnShelby Memorial HospitalComment on above:Performed By: #### [id number] #### [facility] ([facility] [address] [place], [place] [address]BYRKFXEFIqh 50-06-58[address]Lnvavnvqn [Mass/Vol]2.0 mg/dLNormal1.9-2.7 [facility] HospitalComment on above:Performed By: #### [id number] #### [facility] ([facility] [address] [place] [address]NTJiz 79-15-9321Zxorxeguiqf distribution width (RBC) [Ratio]15.9 %High11.5-15.0UnShelby Memorial HospitalComment on above:Performed By: #### [id number] #### [facility] ([facility] [address] [place], [place] [address]FVRAQXRGVBW MEAN CORPUSCULAR HEMOGLOBIN CONCENTRATION (G/DL) BY FEAJHVLKZ43.0 g/dLLow32.0-35.0UnShelby Memorial HospitalComment on above:Performed By: #### [id number] #### [facility] ([facility] [address] [place] [address]Jfwaougwbn (Bld) [Volume fraction]26.8 %Low39.0-55.0UnShelby Memorial HospitalComment on above:Performed By: #### [id number] #### [facility] ([facility] [address] [place] [address]Citdgexyjb (Bld) [Mass/Vol]8.3 g/dLLow13.0-17.0UnShelby Memorial HospitalComment on above:Performed By: #### [id number] #### [facility] ([facility] [address] [place] [place] [address]ONY (RBC) [Entitic mass]31.1 uwHkzvpe58.0-33.0UnShelby Memorial HospitalComment on above:Performed By: #### [id number] #### [facility] ([facility] [address] [place] [address]PGX (RBC) [Entitic vol]100.4 pJYgjm62.0-98.0UnShelby Memorial HospitalComment on above:Performed By: #### [id number] #### [facility] ([facility] [address] [place] [address]WXPWBXXOL (10*3/UL) IN BLOOD AUTOMATED [id number] 10*3/uLNormal 150-400UnShelby Memorial HospitalComment on above:Performed By: #### [id number] #### [facility] ([facility]) [address] [place] [address]PEY (Bld) [#/Vol]2.67 10*6/uLLow4.20-5.70UnShelby Memorial HospitalComment on above:Performed By: #### [id number] #### [facility] ([facility] [address] [place] [address]MQP (Bld) [#/Vol]7.90 10*3/uLNormal4.00-10.60UnShelby Memorial HospitalComment on above:Performed By: #### [id number] #### [facility] ([facility] [address] [place] [address]RMNAXYESLVTHE METABOLIC PANELon [id number] [Mass/Vol]2.8 g/dLLow3.5-5.7UnShelby Memorial HospitalComment on above:Performed By: #### [id number] #### [facility] ([facility] [address], [place] [address]WAN [Catalytic activity/Vol]107 U/YIifk99-306OqkyolslesShelby Memorial HospitalComment on above:Performed By: #### [id number] #### [facility] ([facility] [address] [place] [address]XXG [Catalytic activity/Vol]12 U/LNormal7-52UnShelby Memorial HospitalComment on above:Performed By: #### [id number] #### [facility] ([facility] [address], [place] [address]Rltsj gap [Moles/Vol]6 mmol/LLow7-20UnShelby Memorial HospitalComment on above:Performed By: #### [id number] #### [facility] ([facility] [address], [place] [address]FQE [Catalytic activity/Vol]18 U/CKmunzt98-15NzjacfedtcShelby Memorial HospitalComment on above:Performed By: #### [id number] #### [facility] ([facility] [address], [place] [address]Yzojrurvw [Mass/Vol]0.3 mg/dLNormal0.3-1.0UnShelby Memorial HospitalComment on above:Performed By: #### [id number] #### [facility] ([facility] [address], [place] [address]Iztnfgz [Mass/Vol]9.0 mg/dLNormal8.6-10.3UnShelby Memorial HospitalComment on above:Performed By: #### [id number] #### [facility] ([facility] [address] [place] [address]Obtbjcgl [Moles/Vol]100 mmol/LMcimam44-564RbzcrwzxlzShelby Memorial HospitalComment on above:Performed By: #### [id number] #### [facility] ([facility] [address], [place] [address]FT9 [Moles/Vol]33 mmol/LCcqp39-96RclpsrewvnShelby Memorial HospitalComment on above:Performed By: #### [id number] #### [facility] ([facility] [address], [place] [address]Aupwtskntm [Mass/Vol]0.99 mg/dLNormal0.70-1.30UnShelby Memorial HospitalComment on above:Performed By: #### [id number] #### [facility] ([facility] [address], [place] [address]FFNILIGIFI FILTRATION RATE ML/MIN/1.73 SQ M.TESWGRRLO90.6 mL/min/1.73m*2Normal>60.0UnShelby Memorial HospitalComment on above: Result Comment: The [facility]???s estimated glomerular filtration rate (eGFR) will [...] affect anyone group of individuals.Performed By: #### [id number] #### [facility] ([facility]) [address] [place], [place] [address]Ooexbzo [Mass/Vol]96 mg/nDPfslby49-479UywxbpklqlShelby Memorial HospitalComment on above:Performed By: #### [id number] #### [facility] ([facility]) [address] [place], [place] [address]Lvlcroewp [Moles/Vol]4.4 mmol/LNormal3.5-5.1UnShelby Memorial HospitalComment on above:Performed By: #### [id number] #### [facility] ([facility]) [address] [place] [address]Ygqfgnc [Mass/Vol]5.8 g/dLLow6.0-8.3UnShelby Memorial HospitalComment on above:Performed By: #### [id number] #### [facility] ([facility] [address] [place] [address]Cersup [Moles/Vol]135 mmol/GSps458-527JrhanjvsnzShelby Memorial HospitalComment on above:Performed By: #### [id number] #### [facility] ([facility]) [address] [place] [address]Lmja nitrogen [Mass/Vol]39 mg/dLHigh7-25UnShelby Memorial HospitalComment on above:Performed By: #### [id number] #### [facility] ([facility]) [address] [place], [place] [address]RZDF NITROGEN/CREATININE (MASS RATIO) IN SER/PLAS39.4Normal [facility] HospitalComment on above:Performed By: #### [id number] #### [facility] ([facility]) [address] [place] [address]MERXFRPCFpi 68-34-1450Kklwrbawk [Mass/Vol]2.0 mg/dLNormal1.9-2.7 [facility] HospitalComment on above:Performed By: #### [id number] #### [facility] ([facility] [address] [place] [address]GSYJGICJQXtd 38-69-4864Vinlnwlqn [Mass/Vol]3.2 mg/dLNormal 2.5-5.0UnShelby Memorial HospitalComment on above:Performed By: #### [id number] #### [facility] ([facility]) [address] [place] [address]WKTMBNKVZCTVVcd 41-80-9396WHRGCZS?UNKNOWNNormalUniversity of Rojas Medical CenterComment on above:Performed By: #### [id number] #### [facility] ([facility] [address] [facility] [place], [place] [address]Zmdsfeqku [Mass/Vol]126 mg/cQWdosjl69-408OolhtxskpsShelby Memorial HospitalComment on above:Result Comment: TRIGLYCERIDE REFERENCE RANGE: 20 YEARS AND OLDER CARDIOVASCULAR RISK LESS THAN 150 mg/dL LOW RISK 150 TO 199 mg/dL BORDERLINE RISK 200 mg/dL AND GREATER HIGH RISKPerformed By: #### [id number] #### [facility] ([facility] [address] [place], [place] [address]VVTbs 36-03-0736Mctvimcvbks distribution width (RBC) [Ratio]15.6 %High11.5-15.0UnShelby Memorial HospitalComment on above:Performed By: #### [id number] #### [facility] ([facility]) [address] [place], [place] [address]TGGSVZPKXQZ MEAN CORPUSCULAR HEMOGLOBIN CONCENTRATION (G/DL) BY PYRCFWYOO65.3 g/dLLow32.0-35.0UnShelby Memorial HospitalComment on above:Performed By: #### [id number] #### [facility] ([facility] [address] [place], [place] [address]Empbfdshkt (Bld) [Volume fraction]28.8 %Low39.0-55.0UnShelby Memorial HospitalComment on above:Performed By: #### [id number] #### [facility] ([facility]) [address] [place], [place] [address]Ywdwpcyuzq (Bld) [Mass/Vol]9.0 g/dLLow13.0-17.0UnShelby Memorial HospitalComment on above:Performed By: #### [id number] #### [facility] ([facility] [address] [place], [place] [address]SMP (RBC) [Entitic mass]30.4 nvHwkrml92.0-33.0UnShelby Memorial HospitalComment on above:Performed By: #### [id number] #### [facility] ([facility] [address] [place] [address]MJN (RBC) [Entitic vol]97.3 lKFjzqjo68.0-98.0UnShelby Memorial HospitalComment on above:Performed By: #### [id number] #### [facility] ([facility]) [address] [place] [address]RCYXYKYDO (10*3/UL) IN BLOOD AUTOMATED [id number] 10*3/uLNormal 150-400UnShelby Memorial HospitalComment on above:Performed By: #### [id number] #### [facility] ([facility]) [address] [place] [address]GPA (Bld) [#/Vol]2.96 10*6/uLLow4.20-5.70UnShelby Memorial HospitalComment on above:Performed By: #### [id number] #### [facility] ([facility]) [address] [place] [address]HGC (Bld) [#/Vol]8.30 10*3/uLNormal4.00-10.60UnShelby Memorial HospitalComment on above:Performed By: #### [id number] #### [facility] ([facility]) [address] [place] [address]VKKUNZYAAKLYH METABOLIC PANELon 91-64-9725Dxuoixv [Mass/Vol]2.9 g/dLLow3.5-5.7UnShelby Memorial HospitalComment on above:Performed By: #### [id number] #### [facility] ([facility]) [address] [place], [place] [address]WYH [Catalytic activity/Vol]128 U/JRazc17-351QepsnrpqppShelby Memorial HospitalComment on above:Performed By: #### [id number] #### [facility] ([facility]) [address] [place], [place] [address]UBS [Catalytic activity/Vol]14 U/LNormal7-52UnShelby Memorial HospitalComment on above:Performed By: #### [id number] #### [facility] ([facility]) [address] [place], [place] [address]Qxhbz gap [Moles/Vol]6 mmol/LLow7-20UnShelby Memorial HospitalComment on above:Performed By: #### [id number] #### [facility] ([facility]) [address] [place], [place] [address]IOZ [Catalytic activity/Vol]13 U/XOudmni40-97OptlzqungtShelby Memorial HospitalComment on above:Performed By: #### [id number] #### [facility] ([facility]) [address] [place], [place] [address]Hfyhadgyh [Mass/Vol]0.3 mg/dLNormal0.3-1.0UnShelby Memorial HospitalComment on above:Performed By: #### [id number] #### [facility] ([facility]) [address] [place], [place] [address]Kzregpb [Mass/Vol]8.8 mg/dLNormal8.6-10.3UnShelby Memorial HospitalComment on above:Performed By: #### [id number] #### [facility] ([facility]) [address] [place], [place] [address]Asnydzqh [Moles/Vol]101 mmol/GEzupib60-595IgpugwsmguShelby Memorial HospitalComment on above:Performed By: #### [id number] #### [facility] ([facility]) [address] [place], [place] [address]CX3 [Moles/Vol]34 mmol/WSrru52-79MzxiercjebShelby Memorial HospitalComment on above:Performed By: #### [id number] #### [facility] ([facility]) [address] [place], [place] [address]Ymyalkkszf [Mass/Vol]0.51 mg/dLLow0.70-1.30UnShelby Memorial HospitalComment on above:Performed By: #### [id number] #### [facility] ([facility]) [address] [place], [place] [address]XMKRMGFYJR FILTRATION RATE ML/MIN/1.73 SQ M.BJGQSVWYZ112.6 mL/min/1.73m*2Normal>60.0UnShelby Memorial HospitalComment on above: Result Comment: The [facility]???s estimated glomerular filtration rate (eGFR) will [...] group of individuals.Performed By: #### [id number] #### [facility] ([facility]) [address] [place], [place] [address]Aatryhi [Mass/Vol]98 mg/wFCfbyfu74-956NhbfhvjfelShelby Memorial HospitalComment on above:Performed By: #### [id number] #### [facility] ([facility]) [address] [place], [place] [address]Kluhrstae [Moles/Vol]3.4 mmol/LLow3.5-5.1UnShelby Memorial HospitalComment on above:Performed By: #### [id number] #### [facility] ([facility]) [address] [place], [place] [address]Tedmwxp [Mass/Vol]6.0 g/dLNormal6.0-8.3UnShelby Memorial HospitalComment on above:Performed By: #### [id number] #### [facility] ([facility]) [address] [place], [place] [address]Cdcvua [Moles/Vol]138 mmol/GTviwdx304-258EqwvnnfjjyShelby Memorial HospitalComment on above:Performed By: #### [id number] #### [facility] ([facility]) [address] [place], [place] [address]Qmuh nitrogen [Mass/Vol]20 mg/dLNormal7-25UnShelby Memorial HospitalComment on above:Performed By: #### [id number] #### [facility] ([facility]) [address] [place], [place] [address]RLQN NITROGEN/CREATININE (MASS RATIO) IN SER/PLAS39.2Normal [facility] HospitalComment on above:Performed By: #### [id number] #### [facility] ([facility]) [address] [place] [address]MFFBYQXJIvw 01-25-2263Rpnzlmyua [Mass/Vol]1.9 mg/dLNormal1.9-2.7 [facility] HospitalComment on above:Performed By: #### [id number] #### [facility] ([facility]) [address] [place] [address]LKPJIHAKKNnt 31-63-7673Dxxariwgm [Mass/Vol]3.1 mg/dLNormal 2.5-5.0UnShelby Memorial HospitalComment on above:Performed By: #### [id number] #### [facility] ([facility]) [address] [place], [place] [address]WSURJ METABOLIC PANELon 92-94-8957Eunil gap [Moles/Vol]8 mmol/L Normal7-20UnShelby Memorial HospitalComment on above:Performed By: #### [id number] #### [facility] ([facility]) [address] [place], [place] [address]Kujbwjy [Mass/Vol]8.9 mg/dLNormal8.6-10.3UnShelby Memorial HospitalComment on above:Performed By: #### [id number] #### [facility] ([facility]) [address] [place], [place] [address]Qvaypovb [Moles/Vol]102 mmol/QZbvdpq32-589PyggpizmukShelby Memorial HospitalComment on above:Performed By: #### [id number] #### [facility] ([facility]) [address] [place], [place] [address]DU4 [Moles/Vol]32 mmol/VIgun69-71LkhveoekkwShelby Memorial HospitalComment on above:Performed By: #### [id number] #### [facility] ([facility]) [address] [place] [address]Treihryafs [Mass/Vol]0.47 mg/dLLow0.70-1.30UnShelby Memorial HospitalComment on above:Performed By: #### [id number] #### [facility] ([facility]) [address] [place] [address]FRPGHPUYHD FILTRATION RATE ML/MIN/1.73 SQ M.UXOLJUNMQ701.1 mL/min/1.73m*2Normal>60.0UnShelby Memorial HospitalComment on above: Result Comment: The [facility]???s estimated glomerular filtration rate (eGFR) will [...] group of individuals.Performed By: #### [id number] #### [facility] ([facility]) [address] [place] [address]Jcnaorq [Mass/Vol]88 mg/vYVczmqa21-932LtalnnilfyShelby Memorial HospitalComment on above:Performed By: #### [id number] #### [facility] ([facility]) [address] [place] [address]Pwdqstifh [Moles/Vol]3.8 mmol/LNormal3.5-5.1UnShelby Memorial HospitalComment on above:Performed By: #### [id number] #### [facility] ([facility]) [address] [place] [address]Bqdlnr [Moles/Vol]138 mmol/UNnxhjg993-371QxqldiugscShelby Memorial HospitalComment on above:Performed By: #### [id number] #### [facility] ([facility]) [address] [place] [address]Elof nitrogen [Mass/Vol]17 mg/dLNormal7-25UnShelby Memorial HospitalComment on above:Performed By: #### [id number] #### [facility] ([facility]) [address] [place] [place], [place] [address]TEBS NITROGEN/CREATININE (MASS RATIO) IN SER/PLAS36.2Normal [facility] HospitalComment on above:Performed By: #### [id number] #### [facility] ([facility] [address] [place], [place] [address]XMV WITH AUTO DIFFERENTIALon 49-88-3786Eqldfervswq distribution width (RBC) [Ratio]15.7 %High11.5-15.0UnShelby Memorial HospitalComment on above:Performed By: #### [id number] #### [facility] ([facility]) [address] [place], [place] [address]RFKYRJRSYSP MEAN CORPUSCULAR HEMOGLOBIN CONCENTRATION (G/DL) BY DMLZPNDRM21.6 g/dLLow32.0-35.0UnShelby Memorial HospitalComment on above:Performed By: #### [id number] #### [facility] ([facility]) [address] [place], [place] [address]Vzorgmnuuc (Bld) [Volume fraction]30.7 %Low39.0-55.0UnShelby Memorial HospitalComment on above:Performed By: #### [id number] #### [facility] ([facility]) [address] [place], [place] [address]Fwatgmvokv (Bld) [Mass/Vol]9.4 g/dLLow13.0-17.0UnShelby Memorial HospitalComment on above:Performed By: #### [id number] #### [facility] ([facility] [address] [facility] [place], [place] [address]KVJLSHRK PLATELET FRACTION %4.1 %Normal0.8-6.3UnShelby Memorial HospitalComment on above:Performed By: #### [id number] #### [facility] ([facility]) [address] [place] [address]FTS (RBC) [Entitic mass]30.6 xnCacaqj74.0-33.0UnShelby Memorial HospitalComment on above:Performed By: #### [id number] #### [facility] ([facility] [address] [place] [address]RLA (RBC) [Entitic vol]100.0 jKUmtf07.0-98.0UnShelby Memorial HospitalComment on above:Performed By: #### [id number] #### [facility] ([facility]) [address] [place] [address]VHSD (PER 100 WBCS) BY AUTOMATED COUNT0.0 %Ditasa3CcokicntvlShelby Memorial HospitalComment on above:Performed By: #### [id number] #### [facility] ([facility]) [address] [place] [address]AGXMQRFRP (10*3/UL) IN BLOOD AUTOMATED [id number] 10*3/uLNormal 150-400UnShelby Memorial HospitalComment on above:Performed By: #### [id number] #### [facility] ([facility]) [address] [place] [address]CAK (Bld) [#/Vol]3.07 10*6/uLLow4.20-5.70UnShelby Memorial HospitalComment on above:Performed By: #### [id number] #### [facility] ([facility] [address] [place] [address]KJK (Bld) [#/Vol]7.78 10*3/uLNormal4.00-10.60UnShelby Memorial HospitalComment on above:Performed By: #### [id number] #### [facility] ([facility]) [address] [place] [address]LLORZAOYDdb 05-78-6547Yycgfwrro [Mass/Vol]2.2 mg/dLNormal1.9-2.7 [facility] HospitalComment on above:Performed By: #### [id number] #### [facility] ([facility]) [address] [place] [address]RMMXBO DIFFERENTIALon 01-03-5646BYWDAYTKB (10*3/UL) IN BLOOD BY CALCULATION0.03 10*3/uLNormal0.00-0.20UnShelby Memorial HospitalComment on above:Performed By: #### [id number] #### [facility] ([facility] [address] [place] [address]TIMTXYEZW/100 LEUKOCYTES IN BLOOD BY AUTOMATED COUNT0.4 %Normal 0.0-1.0UnShelby Memorial HospitalComment on above:Performed By: #### [id number] #### [facility] ([facility] [address] [place] [address]ONCYQSBXMJC (10*3/UL) IN BLOOD BY CALCULATION1.29 10*3/uLHigh 0.00-0.50UnShelby Memorial HospitalComment on above:Performed By: #### [id number] #### [facility] ([facility] [address] [place], [place] [address]TPPDLQJTGCB/100 LEUKOCYTES IN BLOOD BY AUTOMATED COUNT16.6 %High 0.0-6.0UnShelby Memorial HospitalComment on above:Performed By: #### [id number] #### [facility] ([facility] [address] [place], [place] [address]KIDARVPS GRANULOCYTES (10*3/UL) IN BLOOD BY CALCULATION0.04 10*3/uLNormal0.00-0.20UnShelby Memorial HospitalComment on above: Performed By: #### [id number] #### [facility] ([facility] [address] [place], [place] [address]GBAULBXO GRANULOCYTES/100 LEUKOCYTES IN BLOOD BY AUTOMATED COUNT 0.5 %Normal0.0-1.0UnShelby Memorial HospitalComment on above:Performed By: #### [id number] #### [facility] ([facility] [address] [place], [place] [address]GGSRKXYJVMY (10*3/UL) IN BLOOD BY CALCULATION1.13 10*3/uLLow 1.20-4.00UnShelby Memorial HospitalComment on above:Performed By: #### [id number] #### [facility] ([facility] [address] [place] [address]CECGKPAGNKX/100 LEUKOCYTES IN BLOOD BY AUTOMATED COUNT14.5 %Low 20.0-45.0UnShelby Memorial HospitalComment on above:Performed By: #### [id number] #### [facility] ([facility]) [address] [place] [address]LTVXGKKHK (10*3/UL) IN BLOOD BY CALCUATION0.46 10*3/uLNormal 0.10-1.00UnShelby Memorial HospitalComment on above:Performed By: #### [id number] #### [facility] ([facility] [address] [place] [address]ZYSZYCCCI/100 LEUKOCYTES IN BLOOD BY AUTOMATED COUNT5.9 %Normal 5.0-12.0UnShelby Memorial HospitalComment on above:Performed By: #### [id number] #### [facility] ([facility] [address] [place] [address]UXKBNTSYWHX (10*3/UL) IN BLOOD BY CALCULATION4.8 10*3/uLNormal 1.6-7.6UnShelby Memorial HospitalComment on above:Performed By: #### [id number] #### [facility] ([facility]) [address] [address]CLBZICXUQJS/100 LEUKOCYTES IN BLOOD BY AUTOMATED COUNT62.1 % Rqvnzn90.0-72.0UnShelby Memorial HospitalComment on above:Performed By: #### [id number] #### [facility] ([facility] [address] [place] [address]WZLkk 21-91-09[address]Zarptqueiwh distribution width (RBC) [Ratio]15.6 %High11.5-15.0UnShelby Memorial HospitalComment on above:Performed By: #### [id number] #### [facility] ([facility] [address] [place] [address]TBVHPFEBUSY MEAN CORPUSCULAR HEMOGLOBIN CONCENTRATION (G/DL) BY UZCOWXXZZ22.3 g/dLLow32.0-35.0UnShelby Memorial HospitalComment on above:Performed By: #### [id number] #### [facility] ([facility] [address] [place] [address]Boxwrabphi (Bld) [Volume fraction]26.8 %Low39.0-55.0UnShelby Memorial HospitalComment on above:Performed By: #### [id number] #### [facility] ([facility]) [address] [place] [address]Fwecqyjtig (Bld) [Mass/Vol]8.4 g/dLLow13.0-17.0UnShelby Memorial HospitalComment on above:Performed By: #### [id number] #### [facility] ([facility] [address] [place] [address]MJL (RBC) [Entitic mass]30.5 etAsfgag11.0-33.0UnShelby Memorial HospitalComment on above:Performed By: #### [id number] #### [facility] ([facility] [address] [place] [address]JBH (RBC) [Entitic vol]97.5 uIDtzmga26.0-98.0UnShelby Memorial HospitalComment on above:Performed By: #### [id number] #### [facility] ([facility] [address] [place], [place] [address]ANAGSMPTF (10*3/UL) IN BLOOD AUTOMATED [id number] 10*3/uLNormal 150-400UnShelby Memorial HospitalComment on above:Performed By: #### [id number] #### [facility] ([facility] [address] [place] [address]CCM (Bld) [#/Vol]2.75 10*6/uLLow4.20-5.70UnShelby Memorial HospitalComment on above:Performed By: #### [id number] #### [facility] ([facility] [address] [place] [address]PNM (Bld) [#/Vol]7.43 10*3/uLNormal4.00-10.60UnShelby Memorial HospitalComment on above:Performed By: #### [id number] #### [facility] ([facility] [address] [place] [address]AWUJFEEXSUPKU METABOLIC PANELon 91-16-6117Lkdzuvd [Mass/Vol]2.7 g/dLLow3.5-5.7UnShelby Memorial HospitalComment on above:Performed By: #### [id number] #### [facility] ([facility] [address] [place] [address]LAQ [Catalytic activity/Vol]110 U/CLynq04-434EirftttrnzShelby Memorial HospitalComment on above:Performed By: #### [id number] #### [facility] ([facility] [address] [place] [address]VPU [Catalytic activity/Vol]13 U/LNormal7-52UnShelby Memorial HospitalComment on above:Performed By: #### [id number] #### [facility] ([facility] [address] [place] [address]Rmdht gap [Moles/Vol]6 mmol/LLow7-20UnShelby Memorial HospitalComment on above:Performed By: #### [id number] #### [facility] ([facility]) [address] [place] [address]QDX [Catalytic activity/Vol]13 U/GUcmeks52-75FeamsyoxgjShelby Memorial HospitalComment on above:Performed By: #### [id number] #### [facility] ([facility] [address] [place] [address]Unziogfpi [Mass/Vol]0.3 mg/dLNormal0.3-1.0UnShelby Memorial HospitalComment on above:Performed By: #### [id number] #### [facility] ([facility]) [address] [address]Kyvxbjp [Mass/Vol]8.6 mg/dLNormal8.6-10.3UnShelby Memorial HospitalComment on above:Performed By: #### [id number] #### [facility] ([facility] [address] [place] [address]Ooukrmfr [Moles/Vol]103 mmol/UQnkxbw43-289NjntootzuzShelby Memorial HospitalComment on above:Performed By: #### [id number] #### [facility] ([facility]) [address] [place] [address]LR6 [Moles/Vol]36 mmol/NPejd82-08QodkfzbtaeShelby Memorial HospitalComment on above:Performed By: #### [id number] #### [facility] ([facility]) [address] [place] [address]Fopfhvjsuy [Mass/Vol]0.46 mg/dLLow0.70-1.30UnShelby Memorial HospitalComment on above:Performed By: #### [id number] #### [facility] ([facility]) [address] [place], [place] [address]NQBTEJSJJQ FILTRATION RATE ML/MIN/1.73 SQ M.PJAGMIKYZ144.8 mL/min/1.73m*2Normal>60.0UnShelby Memorial HospitalComment on above: Result Comment: [facility]???s estimated glomerular filtration rate (eGFR) will [...] affect anyone group of individuals.Performed By: #### [id number] #### [facility] ([facility]) [address] [place] [address]Rchznlx [Mass/Vol]113 mg/kNPxxz77-016MkzyhyghtyShelby Memorial HospitalComment on above:Performed By: #### [id number] #### [facility] ([facility]) [address] [place] [place] [address]Ukqevgafn [Moles/Vol]3.1 mmol/LLow3.5-5.1UnShelby Memorial HospitalComment on above:Performed By: #### [id number] #### [facility] ([facility]) [address] [address]Jbjmnxi [Mass/Vol]5.5 g/dLLow6.0-8.3UnShelby Memorial HospitalComment on above:Performed By: #### [id number] #### [facility] ([facility]) [address] [place] [address]Mexwht [Moles/Vol]142 mmol/RZminnx036-959UgefowbrcvShelby Memorial HospitalComment on above:Performed By: #### [id number] #### [facility] ([facility] [address] [place] [address]Jtpp nitrogen [Mass/Vol]18 mg/dLNormal7-25UnShelby Memorial HospitalComment on above:Performed By: #### [id number] #### [facility] ([facility] [address] [place] [address]GXLI NITROGEN/CREATININE (MASS RATIO) IN SER/PLAS39.1Normal [facility] HospitalComment on above:Performed By: #### [id number] #### [facility] ([facility]) [address] [place], [place] [address]AZJ WITH AUTO DIFFERENTIALon 14-67-1046Mljvfgmfe (Bld) [#/Vol] 0.03 10*3/uLNormal0.00-0.20UnShelby Memorial HospitalComment on above: Performed By: #### [id number] #### [facility] ([facility]) [address] [place] [address]Zmpbrymfi/100 WBC (Bld)0.5 %Normal0.0-1.0UnShelby Memorial HospitalComment on above:Performed By: #### [id number] #### [facility] ([facility]) [address] [place] [address]Kyretdjyfnz (Bld) [#/Vol]0.89 10*3/uLHigh0.00-0.50UnShelby Memorial HospitalComment on above:Performed By: #### [id number] #### [facility] ([facility]) [address] [place] [address]Ibchqerjmwh/100 WBC (Bld)13.5 %High0.0-6.0UnShelby Memorial HospitalComment on above:Performed By: #### [id number] #### [facility] ([facility]) [address] [place] [address]Ujpmsvjkasy distribution width (RBC) [Ratio]15.5 %High11.5-15.0 [facility] HospitalComment on above:Performed By: #### [id number] #### [facility] ([facility]) [address] [place] [address]BPVAZFZIPHW MEAN CORPUSCULAR HEMOGLOBIN CONCENTRATION (G/DL) BY MSXKECRPE13.9 g/dLLow32.0-35.0UnShelby Memorial HospitalComment on above:Performed By: #### [id number] #### [facility] ([facility]) [address] [place] [address]Fxnudozeej (Bld) [Volume fraction]27.8 %Low39.0-55.0UnShelby Memorial HospitalComment on above:Performed By: #### [id number] #### [facility] ([facility]) [address] [place] [address]Umlrdorzyv (Bld) [Mass/Vol]8.6 g/dLLow13.0-17.0UnShelby Memorial HospitalComment on above:Performed By: #### [id number] #### [facility] ([facility]) [address] [place] [address]Rsqwskzk granulocytes (Bld) [#/Vol]0.02 10*3/uLNormal0.00-0.20 [facility] HospitalComment on above:Performed By: #### [id number] #### [facility] ([facility]) [address] [place] [address]Rzzpzlif granulocytes/100 WBC (Bld)0.3 %Normal0.0-1.0UnShelby Memorial HospitalComment on above:Performed By: #### [id number] #### [facility] ([facility]) [address] [place] [address]Nmsmneyhzqz (Bld) [#/Vol]0.80 10*3/uLLow1.20-4.00UnShelby Memorial HospitalComment on above:Performed By: #### [id number] #### [facility] ([facility]) [address] [place] [address]Udwvmudktva/100 WBC (Bld)12.1 %Low20.0-45.0UnShelby Memorial HospitalComment on above:Performed By: #### [id number] #### [facility] ([facility]) [address] [place] [address]KXB (RBC) [Entitic mass]30.6 flBxjrfr95.0-33.0UnShelby Memorial HospitalComment on above:Performed By: #### [id number] #### [facility] ([facility]) [address] [place] [address]TEI (RBC) [Entitic vol]98.9 xMQwus48.0-98.0UnShelby Memorial HospitalComment on above:Performed By: #### [id number] #### [facility] ([facility]) [address] [place], [place] [address]Lgxffpvap (Bld) [#/Vol]0.43 10*3/uLNormal0.10-1.00UnShelby Memorial HospitalComment on above:Performed By: #### [id number] #### [facility] ([facility]) [address] [address]Mvawvbnvp/100 WBC (Bld)6.5 %Normal5.0-12.0UnShelby Memorial HospitalComment on above:Performed By: #### [id number] #### [facility] ([facility]) [address] [place] [address]Jpmbeykwyhx (Bld) [#/Vol]4.43 10*3/uLNormal1.60-7.60UnShelby Memorial HospitalComment on above:Performed By: #### [id number] #### [facility] ([facility]) [address] [address]Xxyybksmvpg/100 WBC (Bld)67.1 %Cbbppd50.0-72.0UnShelby Memorial HospitalComment on above:Performed By: #### [id number] #### [facility] ([facility]) [address] [place] [address]ILXL (PER 100 WBCS) BY AUTOMATED COUNT0.0 %Yutvsd0UvavfrmsylShelby Memorial HospitalComment on above:Performed By: #### [id number] #### [facility] ([facility]) [address] [place] [address]PAGTBBXFM (10*3/UL) IN BLOOD AUTOMATED JRVJJ164 10*3/uLNormal 150-400UnShelby Memorial HospitalComment on above:Performed By: #### [id number] #### [facility] ([facility]) [address] [place] [address]WSI (Bld) [#/Vol]2.81 10*6/uLLow4.20-5.70UnShelby Memorial HospitalComment on above:Performed By: #### [id number] #### [facility] ([facility]) [address] [place] [address]RWX (Bld) [#/Vol]6.60 10*3/uLNormal4.00-10.60UnShelby Memorial HospitalComment on above:Performed By: #### [id number] #### [facility] ([facility]) [address] [place] [address]WXAKNIMHYFJPU METABOLIC PANELon 37-89-4250Qjukvec [Mass/Vol]2.9 g/dLLow3.5-5.7UnShelby Memorial HospitalComment on above:Performed By: #### [id number] #### [facility] ([facility]) [address] [place], [place] [address]FKF [Catalytic activity/Vol]119 U/QXtls11-637ScsiqewbkiShelby Memorial HospitalComment on above:Performed By: #### [id number] #### [facility] ([facility]) [address] [place], [place] [address]GDS [Catalytic activity/Vol]12 U/LNormal7-52UnShelby Memorial HospitalComment on above:Performed By: #### [id number] #### [facility] ([facility]) [address] [place], [place] [address]Rpkjg gap [Moles/Vol]10 mmol/LNormal7-20UnShelby Memorial HospitalComment on above:Performed By: #### [id number] #### [facility] ([facility]) [address] [place], [place] [address]HKY [Catalytic activity/Vol]15 U/LGjgtun08-54CamlfeqwttShelby Memorial HospitalComment on above:Performed By: #### [id number] #### [facility] ([facility]) [address] [place], [place] [address]Laiirrvck [Mass/Vol]0.4 mg/dLNormal0.3-1.0UnShelby Memorial HospitalComment on above:Performed By: #### [id number] #### [facility] ([facility]) [address] [place], [place] [address]Tfuefqy [Mass/Vol]8.7 mg/dLNormal8.6-10.3UnShelby Memorial HospitalComment on above:Performed By: #### [id number] #### [facility] ([facility]) [address] [place], [place] [address]Fechvjdf [Moles/Vol]103 mmol/DEapypv76-293HmaphoovjgShelby Memorial HospitalComment on above:Performed By: #### [id number] #### [facility] ([facility]) [address] [place], [place] [address]JK7 [Moles/Vol]31 mmol/BGolpdu78-08UosddzdwziShelby Memorial HospitalComment on above:Performed By: #### [id number] #### [facility] ([facility]) [address] [place] [address]Coaavhxotr [Mass/Vol]0.47 mg/dLLow0.70-1.30UnShelby Memorial HospitalComment on above:Performed By: #### [id number] #### [facility] ([facility]) [address] [address]QAZPHLEQSE FILTRATION RATE ML/MIN/1.73 SQ M.HVELRSBND811.1 mL/min/1.73m*2Normal>60.0UnShelby Memorial HospitalComment on above: Result Comment: [facility]???s estimated glomerular filtration rate (eGFR) will [...] affect anyone group of individuals.Performed By: #### [id number] #### [facility] ([facility]) [address] [place] [address]Brapsdz [Mass/Vol]114 mg/cQFlxc40-683EwuallxnlfShelby Memorial HospitalComment on above:Performed By: #### [id number] #### [facility] ([facility]) [address] [place] [address]Tebfsnbtp [Moles/Vol]3.3 mmol/LLow3.5-5.1UnShelby Memorial HospitalComment on above:Performed By: #### [id number] #### [facility] ([facility]) [address] [place] [address]Udgpljb [Mass/Vol]5.9 g/dLLow6.0-8.3UnShelby Memorial HospitalComment on above:Performed By: #### [id number] #### [facility] ([facility]) [address] [place] [address]Lwgsxa [Moles/Vol]141 mmol/ZOdryst325-967YtdryzrnvgShelby Memorial HospitalComment on above:Performed By: #### [id number] #### [facility] ([facility]) [address] [place] [address]Rcrg nitrogen [Mass/Vol]13 mg/dLNormal-UnShelby Memorial HospitalComment on above:Performed By: #### [id number] #### [facility] ([facility]) [address] [place] [address]VKHU NITROGEN/CREATININE (MASS RATIO) IN SER/PLAS27.7Normal [facility] HospitalComment on above:Performed By: #### [id number] #### [facility] ([facility]) [address] [place] [address]JODEZNNQZju 33-84-1779Wnjpzsaxr [Mass/Vol]1.9 mg/dLNormal1.9-2.7 [facility] HospitalComment on above:Performed By: #### [id number] #### [facility] ([facility]) [address] [place] [address]EBD WITH AUTO DIFFERENTIALon 27-99-6448Zzutzswtb (Bld) [#/Vol] 0.02 10*3/uLNormal0.00-0.20UnShelby Memorial HospitalComment on above: Performed By: #### [id number] #### [facility] ([facility]) [address] [place] [address]Fhqwogapc/100 WBC (Bld)0.3 %Normal0.0-1.0UnShelby Memorial HospitalComment on above:Performed By: #### [id number] #### [facility] ([facility]) [address] [place] [address]Vkuoghyyvhf (Bld) [#/Vol]0.81 10*3/uLHigh0.00-0.50UnShelby Memorial HospitalComment on above:Performed By: #### [id number] #### [facility] ([facility]) [address] [place] [address]Iyzkkeaijsw/100 WBC (Bld)13.9 %High0.0-6.0UnShelby Memorial HospitalComment on above:Performed By: #### [id number] #### [facility] ([facility]) [address] [place] [address]Yrfsaowlcjv distribution width (RBC) [Ratio]15.5 %High11.5-15.0 [facility] HospitalComment on above:Performed By: #### [id number] #### [facility] ([facility]) [address] [place] [address]JGAFKUOGNVV MEAN CORPUSCULAR HEMOGLOBIN CONCENTRATION (G/DL) BY AWPWYFATJ29.4 g/dLLow32.0-35.0UnShelby Memorial HospitalComment on above:Performed By: #### [id number] #### [facility] ([facility]) [address] [place] [address]Rnbvkmghsr (Bld) [Volume fraction]25.5 %Low39.0-55.0UnShelby Memorial HospitalComment on above:Performed By: #### [id number] #### [facility] ([facility]) [address] [place] [address]Zeyftllijx (Bld) [Mass/Vol]8.0 g/dLLow13.0-17.0UnShelby Memorial HospitalComment on above:Performed By: #### [id number] #### [facility] ([facility]) [address] [place] [address]Iaqqpwnj granulocytes (Bld) [#/Vol]0.02 10*3/uLNormal0.00-0.20 [facility] HospitalComment on above:Performed By: #### [id number] #### [facility] [address] [place] [address]Thmzxruq granulocytes/100 WBC (Bld)0.3 %Normal0.0-1.0UnShelby Memorial HospitalComment on above:Performed By: #### [id number] #### [facility] ([facility]) [address] [place] [address]Qzblrapdryv (Bld) [#/Vol]1.05 10*3/uLLow1.20-4.00UnShelby Memorial HospitalComment on above:Performed By: #### [id number] #### [facility] ([facility]) [address] [place], [place] [address]Rvhucyazmsv/100 WBC (Bld)18.0 %Low20.0-45.0UnShelby Memorial HospitalComment on above:Performed By: #### [id number] #### [facility] ([facility]) [address] [place] [address]DPG (RBC) [Entitic mass]30.3 saKokyoe87.0-33.0UnShelby Memorial HospitalComment on above:Performed By: #### [id number] #### [facility] ([facility]) [address] [place], [place] [address]VLI (RBC) [Entitic vol]96.6 qLDienvu05.0-98.0UnShelby Memorial HospitalComment on above:Performed By: #### [id number] #### [facility] ([facility]) [address] [place], [place] [address]Babxqawbv (Bld) [#/Vol]0.50 10*3/uLNormal0.10-1.00UnShelby Memorial HospitalComment on above:Performed By: #### [id number] #### [facility] ([facility]) [address] [place], [place] [address]Pbrehkfqi/100 WBC (Bld)8.6 %Normal5.0-12.0UnShelby Memorial HospitalComment on above:Performed By: #### [id number] #### [facility] ([facility]) [address] [place], [place] [address]Kfkprizopve (Bld) [#/Vol]3.43 10*3/uLNormal1.60-7.60UnShelby Memorial HospitalComment on above:Performed By: #### [id number] #### [facility] ([facility]) [address] [address]Yhoiijhmfvy/100 WBC (Bld)58.9 %Moomvx48.0-72.0UnShelby Memorial HospitalComment on above:Performed By: #### [id number] #### [facility] ([facility]) [address] [address]XMEV (PER 100 WBCS) BY AUTOMATED COUNT0.0 %Jwsavj6EsavhywrxaShelby Memorial HospitalComment on above:Performed By: #### [id number] #### [facility] ([facility]) [address] [address]HMXAFMSNJ (10*3/UL) IN BLOOD AUTOMATED TBPPM458 10*3/uLNormal 150-400UnShelby Memorial HospitalComment on above:Performed By: #### [id number] #### [facility] ([facility]) [address] [place] [address]XHR (Bld) [#/Vol]2.64 10*6/uLLow4.20-5.70UnShelby Memorial HospitalComment on above:Performed By: #### [id number] #### [facility] ([facility]) [address] [address]NTA (Bld) [#/Vol]5.83 10*3/uLNormal4.00-10.60UnShelby Memorial HospitalComment on above:Performed By: #### [id number] #### [facility] ([facility]) [address] [place], [place] [address]YBRXGRSZLIQTW METABOLIC PANELon 88-64-8979Exotf gap [Moles/Vol]8 mmol/LNormal7-20UnShelby Memorial HospitalComment on above:Performed By: #### [id number] #### [facility] ([facility]) [address] [place], [place] [address]Injjyfc [Mass/Vol]8.4 mg/dLLow8.6-10.3UnShelby Memorial HospitalComment on above:Performed By: #### [id number] #### [facility] ([facility]) [address] [place] [address]Brsypsrf [Moles/Vol]101 mmol/AWjvowu38-430VmkwhmyqxxShelby Memorial HospitalComment on above:Performed By: #### [id number] #### [facility] ([facility]) [address] [place] [address]CA8 [Moles/Vol]29 mmol/WHbwvyx07-37DgbbfclkpkShelby Memorial HospitalComment on above:Performed By: #### [id number] #### [facility] ([facility]) [address] [place] [address]Epxdhkvurg [Mass/Vol]0.50 mg/dLLow0.70-1.30UnShelby Memorial HospitalComment on above:Performed By: #### [id number] #### [facility] ([facility]) [address] [place] [address]LTPNLCGKER FILTRATION RATE ML/MIN/1.73 SQ M.OEZRBFFEU672.2 mL/min/1.73m*2Normal>60.0UnShelby Memorial HospitalComment on above: Result Comment: [facility]???s estimated glomerular filtration rate (eGFR) will [...] affect anyone group of individuals.Performed By: #### [id number] #### [facility] ([facility]) [address] [place] [address]Cnpysho [Mass/Vol]91 mg/jVCgnbvm35-227MetkoksribShelby Memorial HospitalComment on above:Performed By: #### [id number] #### [facility] ([facility]) [address] [place], [place] [address]Hfqrzrazt [Moles/Vol]3.5 mmol/LNormal3.5-5.1UnShelby Memorial HospitalComment on above:Performed By: #### [id number] #### [facility] ([facility]) [address] [place], [place] [address]Nydnap [Moles/Vol]134 mmol/AQmk707-100DmnqjwdyctShelby Memorial HospitalComment on above:Performed By: #### [id number] #### [facility] ([facility]) [address] [place], [place] [address]Jkhm nitrogen [Mass/Vol]6 mg/dLLow7-25UnShelby Memorial HospitalComment on above:Performed By: #### [id number] #### [facility] ([facility]) [address] [place], [place] [address]XBZZ NITROGEN/CREATININE (MASS RATIO) IN SER/PLAS12.0Normal [facility] HospitalComment on above:Performed By: #### [id number] #### [facility] ([facility]) [address] [place], [place] [address]XDGGUKH FUNCTION PANELon 28-49-8909Pupoyme [Mass/Vol]2.7 g/dLLow 3.5-5.7UnShelby Memorial HospitalComment on above:Performed By: #### [id number] #### [facility] ([facility]) [address] [place], [place] [address]Godlxfkbv By: #### [id number] #### [facility] ([facility]) [address] [place], [place] [address]HXB [Catalytic activity/Vol]106 U/MPpmo04-959GrqfjdxcdtShelby Memorial HospitalComment on above:Performed By: #### [id number] #### [facility] ([facility]) [address] [place], [place] [address]Lnqdvkbax By: #### [id number] #### [facility] ([facility]) [address] [place], [place] [address]FWR [Catalytic activity/Vol]15 U/LNormal7-52UnShelby Memorial HospitalComment on above:Performed By: #### [id number] #### [facility] ([facility]) [address] [place], [place] [address]Ilsswnmyu By: #### [id number] #### [facility] ([facility]) [address] [place] [address]RQE [Catalytic activity/Vol]16 U/BGdoavu41-26IyhdjcjbcuShelby Memorial HospitalComment on above:Performed By: #### [id number] #### [facility] ([facility]) [address] [place], [place] [address]Kdbtspqsn By: #### [id number] #### [facility] ([facility]) [address] [place], [place] [address]Muclftlio [Mass/Vol]0.5 mg/dLNormal0.3-1.0UnShelby Memorial HospitalComment on above:Performed By: #### [id number] #### [facility] ([facility]) [address] [place], [place] [address]Gxxvygsck By: #### [id number] #### [facility] ([facility]) [address] [place], [place] [address]Umfajcgbk [Mass/Vol]0.1 mg/dLNormal0-0.2UnShelby Memorial HospitalComment on above:Performed By: #### [id number] #### [facility] ([facility]) [address] [place], [place] [address]Cgxaajj [Mass/Vol]5.7 g/dLLow6.0-8.3UnShelby Memorial HospitalComment on above:Performed By: #### [id number] #### [facility] ([facility]) [address] [place], [place] [address]Fozijqlrw By: #### [id number] #### [facility] ([facility]) [address] [place], [place] [address]SVBGHJBEErt 15-54-9994Mgljhfxsy [Mass/Vol]1.8 mg/dLLow1.9-2.7 [facility] HospitalComment on above:Performed By: #### [id number] #### [facility] ([facility] [address] [address]IVWUDCSNKSdy [id number] [Mass/Vol]3.2 mg/dLNormal 2.5-5.0UnShelby Memorial HospitalComment on above:Performed By: #### [id number] #### [facility] ([facility] [address] [place] [address]MTFFMZAZNLMGXft [id number]?UnknownNormalUniversity [facility] GeneralComment on above:Performed By: #### [id number] #### [facility] ([facility] [address] [place] [address]Ulyfouhuv [Mass/Vol]100 mg/pIOvvflh73-957KqcbjfaaxkShelby Memorial HospitalComment on above:Result Comment: TRIGLYCERIDE REFERENCE RANGE: 20 YEARS AND OLDER CARDIOVASCULAR RISK LESS THAN 150 mg/dL LOW RISK 150 TO 199 mg/dL BORDERLINE RISK 200 mg/dL AND GREATER HIGH RISKPerformed By: #### [id number] #### [facility] ([facility]) [address] [place] [address]BAXQE METABOLIC PANELon [id number] gap [Moles/Vol]8 mmol/L Normal7-20UnShelby Memorial HospitalComment on above:Performed By: #### [id number] #### [facility] ([facility] [address] [place] [address]Tyjrnta [Mass/Vol]8.3 mg/dLLow8.6-10.3UnShelby Memorial HospitalComment on above:Performed By: #### [id number] #### [facility] ([facility] [address] [place] [address]Atefjfal [Moles/Vol]102 mmol/ZIdldtt57-172AdroenjgueShelby Memorial HospitalComment on above:Performed By: #### [id number] #### [facility] [address] [place] [id number] [Moles/Vol]30 mmol/XAyrppz21-95IwtqvthvnhShelby Memorial HospitalComment on above:Performed By: #### [id number] #### [facility] ([facility] [address] [address]Mkwjcfdfre [Mass/Vol]0.54 mg/dLLow0.70-1.30UnShelby Memorial HospitalComment on above:Performed By: #### [id number] #### [facility] ([facility] [address] [address]XCUXEFERTG FILTRATION RATE ML/MIN/1.73 SQ M.EOPZHASNE02.9 mL/min/1.73m*2Normal>60.0UnShelby Memorial HospitalComment on above: Result Comment: [facility]???s estimated glomerular filtration rate (eGFR) will [...] affect anyone group of individuals.Performed By: #### [id number] #### [facility] ([facility] [address] [address]Kvlwkay [Mass/Vol]92 mg/uOTzsseo89-231DazrptzspiShelby Memorial HospitalComment on above:Performed By: #### [id number] #### [facility] ([facility] [address] [place] [address]Jbakxpbar [Moles/Vol]3.6 mmol/LNormal3.5-5.1UnShelby Memorial HospitalComment on above:Performed By: #### [id number] #### [facility] ([facility] [address] [address]Xpwqmr [Moles/Vol]136 mmol/EYkwmaw662-476ZifefonyzeShelby Memorial HospitalComment on above:Performed By: #### [id number] #### [facility] ([facility] [address] [address]Hmdl nitrogen [Mass/Vol]7 mg/dLNormal7-25UnShelby Memorial HospitalComment on above:Performed By: #### [id number] #### [facility] ([facility] [address] [address]NRYA NITROGEN/CREATININE (MASS RATIO) IN SER/PLAS13.0Normal [facility] HospitalComment on above:Performed By: #### [id number] #### [facility] ([facility] [address] [address]RJO WITH AUTO DIFFERENTIALon [id number] (Bld) [#/Vol] 0.03 10*3/uLNormal0.00-0.20UnShelby Memorial HospitalComment on above: Performed By: #### [id number] #### [facility] [facility] ([facility] [address] [place] [address]Lppicqjpo/100 WBC (Bld)0.5 %Normal0.0-1.0UnShelby Memorial HospitalComment on above:Performed By: #### [id number] #### [facility] ([facility]) [address] [place] [address]Rrwjbybdiwh (Bld) [#/Vol]0.70 10*3/uLHigh0.00-0.50UnShelby Memorial HospitalComment on above:Performed By: #### [id number] #### [facility] ([facility]) [address] [place] [address]Cjihvboxwxu/100 WBC (Bld)11.8 %High0.0-6.0UnShelby Memorial HospitalComment on above:Performed By: #### [id number] #### [facility] ([facility]) [address] [place], [place] [address]Nhxguthlcur distribution width (RBC) [Ratio]15.3 %High11.5-15.0 [facility] HospitalComment on above:Performed By: #### [id number] #### [facility] ([facility] [address] [place] [address]HISPJGOKPLB MEAN CORPUSCULAR HEMOGLOBIN CONCENTRATION (G/DL) BY GYZMMJSCB90.9 g/dLLow32.0-35.0UnShelby Memorial HospitalComment on above:Performed By: #### [id number] #### [facility] ([facility] [address] [place] [address]Qtgraonygk (Bld) [Volume fraction]26.3 %Low39.0-55.0UnShelby Memorial HospitalComment on above:Performed By: #### [id number] #### [facility] ([facility]) [address] [place] [address]Lpanjweowo (Bld) [Mass/Vol]8.4 g/dLLow13.0-17.0UnShelby Memorial HospitalComment on above:Performed By: #### [id number] #### [facility] ([facility]) [address] [place] [address]Riiajajp granulocytes (Bld) [#/Vol]0.02 10*3/uLNormal0.00-0.20 [facility] HospitalComment on above:Performed By: #### [id number] #### [facility] ([facility]) [address] [place] [address]Vtfkbvmr granulocytes/100 WBC (Bld)0.3 %Normal0.0-1.0UnShelby Memorial HospitalComment on above:Performed By: #### [id number] #### [facility] [address] [place] [address]Buubzpxqhal (Bld) [#/Vol]0.92 10*3/uLLow1.20-4.00UnShelby Memorial HospitalComment on above:Performed By: #### [id number] #### [facility] [address] [place], [place] [address]Toykxupbctp/100 WBC (Bld)15.5 %Low20.0-45.0UnShelby Memorial HospitalComment on above:Performed By: #### [id number] #### [facility] ([facility] [address] [place] [address]DGQ (RBC) [Entitic mass]30.3 naSbpwyk42.0-33.0UnShelby Memorial HospitalComment on above:Performed By: #### [id number] #### [facility] ([facility]) [address] [place] [address]WBS (RBC) [Entitic vol]94.9 jVUtwifo35.0-98.0UnShelby Memorial HospitalComment on above:Performed By: #### [id number] #### [facility] ([facility] [address] [place] [address]Slosnpowa (Bld) [#/Vol]0.33 10*3/uLNormal0.10-1.00UnShelby Memorial HospitalComment on above:Performed By: #### [id number] #### [facility] ([facility]) [address] [place], [place] [address]Tkitsltai/100 WBC (Bld)5.5 %Normal5.0-12.0UnShelby Memorial HospitalComment on above:Performed By: #### [id number] #### [facility] ([facility]) [address] [place], [place] [address]Srxqbctqehc (Bld) [#/Vol]3.95 10*3/uLNormal1.60-7.60UnShelby Memorial HospitalComment on above:Performed By: #### [id number] #### [facility] ([facility]) [address] [place], [place] [address]Auirocsovth/100 WBC (Bld)66.4 %Cegpau81.0-72.0UnShelby Memorial HospitalComment on above:Performed By: #### [id number] #### [facility] ([facility]) [address] [place] [address]JXCT (PER 100 WBCS) BY AUTOMATED COUNT0.0 %Uhgunk8LwrqbmqzizShelby Memorial HospitalComment on above:Performed By: #### [id number] #### [facility] ([facility]) [address] [place] [address]VIRHZPNEK (10*3/UL) IN BLOOD AUTOMATED LARTB095 10*3/uLNormal 150-400UnShelby Memorial HospitalComment on above:Performed By: #### [id number] #### [facility] ([facility]) [address] [place] [address]YKT (Bld) [#/Vol]2.77 10*6/uLLow4.20-5.70UnShelby Memorial HospitalComment on above:Performed By: #### [id number] #### [facility] ([facility] [address] [place] [address]ITN (Bld) [#/Vol]5.95 10*3/uLNormal4.00-10.60UnShelby Memorial HospitalComment on above:Performed By: #### [id number] #### [facility] ([facility]) [address] [place] [address]OPTDSBKYOit 54-67-73[address]Iovhkbxnj [Mass/Vol]2.1 mg/dLNormal1.9-2.7 [facility] HospitalComment on above:Performed By: #### [id number] #### [facility] ([facility]) [address] [place] [address]QVH WITH AUTO DIFFERENTIALon 08-49-3532Ydnsamyzh (Bld) [#/Vol] 0.02 10*3/uLNormal0.00-0.20UnShelby Memorial HospitalComment on above: Performed By: #### [id number] #### [facility] ([facility]) [address] [place] [address]Xkkmtydlh/100 WBC (Bld)0.3 %Normal0.0-1.0UnShelby Memorial HospitalComment on above:Performed By: #### [id number] #### [facility] ([facility]) [address] [place] [address]Ueuvmguxxkp (Bld) [#/Vol]0.73 10*3/uLHigh0.00-0.50UnShelby Memorial HospitalComment on above:Performed By: #### [id number] #### [facility] ([facility]) [address] [place] [address]Lhuguathxkn/100 WBC (Bld)12.1 %High0.0-6.0UnShelby Memorial HospitalComment on above:Performed By: #### [id number] #### [facility] ([facility]) [address] [place], [place] [address]Iwzsaaekyab distribution width (RBC) [Ratio]15.4 %High11.5-15.0 [facility] HospitalComment on above:Performed By: #### [id number] #### [facility] ([facility]) [address] [place], [place] [address]ORRDFMQLTDR MEAN CORPUSCULAR HEMOGLOBIN CONCENTRATION (G/DL) BY GDAGEUVPA26.5 g/kIGieyat88.0-35.0UnShelby Memorial HospitalComment on above:Performed By: #### [id number] #### [facility] ([facility]) [address] [place] [address]Brlbylkmju (Bld) [Volume fraction]24.9 %Low39.0-55.0UnShelby Memorial HospitalComment on above:Performed By: #### [id number] #### [facility] ([facility]) [address] [place], [place] [address]Zohorymjnd (Bld) [Mass/Vol]8.1 g/dLLow13.0-17.0UnShelby Memorial HospitalComment on above:Performed By: #### [id number] #### [facility] ([facility]) [address] [place], [place] [address]Raiuixrb granulocytes (Bld) [#/Vol]0.03 10*3/uLNormal0.00-0.20 [facility] HospitalComment on above:Performed By: #### [id number] #### [facility] ([facility]) [address] [place] [address]Jhxpcuuu granulocytes/100 WBC (Bld)0.5 %Normal0.0-1.0UnShelby Memorial HospitalComment on above:Performed By: #### [id number] #### [facility] ([facility]) [address] [place] [address]Sxjegimvnuh (Bld) [#/Vol]0.86 10*3/uLLow1.20-4.00UnShelby Memorial HospitalComment on above:Performed By: #### [id number] #### [facility] ([facility]) [address] [place] [address]Bfnwnhfbheu/100 WBC (Bld)14.3 %Low20.0-45.0UnShelby Memorial HospitalComment on above:Performed By: #### [id number] #### [facility] ([facility]) [address] [place] [address]HKR (RBC) [Entitic mass]30.5 saNcjkuz65.0-33.0UnShelby Memorial HospitalComment on above:Performed By: #### [id number] #### [facility] ([facility]) [address] [place], [place] [address]YBD (RBC) [Entitic vol]93.6 iQEjsqef03.0-98.0UnShelby Memorial HospitalComment on above:Performed By: #### [id number] #### [facility] ([facility]) [address] [place], [place] [address]Hblkdcvdx (Bld) [#/Vol]0.40 10*3/uLNormal0.10-1.00UnShelby Memorial HospitalComment on above:Performed By: #### [id number] #### [facility] ([facility]) [address] [place], [place] [address]Zggierbup/100 WBC (Bld)6.7 %Normal5.0-12.0UnShelby Memorial HospitalComment on above:Performed By: #### [id number] #### [facility] ([facility]) [address] [place] [address]Jnkavexascq (Bld) [#/Vol]3.97 10*3/uLNormal1.60-7.60UnShelby Memorial HospitalComment on above:Performed By: #### [id number] #### [facility] ([facility]) [address] [place] [address]Phbbhwnslqo/100 WBC (Bld)66.1 %Izheys91.0-72.0UnShelby Memorial HospitalComment on above:Performed By: #### [id number] #### [facility] ([facility]) [address] [address]ICWE (PER 100 WBCS) BY AUTOMATED COUNT0.0 %Uaiydy7ZqdoakvxrmShelby Memorial HospitalComment on above:Performed By: #### [id number] #### [facility] ([facility]) [address] [place] [address]HEAQWEMMN (10*3/UL) IN BLOOD AUTOMATED [id number] 10*3/uLNormal 150-400UnShelby Memorial HospitalComment on above:Performed By: #### [id number] #### [facility] ([facility]) [address] [place] [address]JZL (Bld) [#/Vol]2.66 10*6/uLLow4.20-5.70UnShelby Memorial HospitalComment on above:Performed By: #### [id number] #### [facility] ([facility]) [address] [place] [address]TDB (Bld) [#/Vol]6.01 10*3/uLNormal4.00-10.60UnShelby Memorial HospitalComment on above:Performed By: #### [id number] #### [facility] ([facility]) [address] [place] [address]TFDOAQIURTQFO METABOLIC PANELon 47-83-1577Ehcqbbd [Mass/Vol]2.7 g/dLLow3.5-5.7UnShelby Memorial HospitalComment on above:Performed By: #### [id number] #### [facility] ([facility]) [address] [place], [place] [address]SRS [Catalytic activity/Vol]106 U/RXrbj00-436HfvitgtxagShelby Memorial HospitalComment on above:Performed By: #### [id number] #### [facility] ([facility]) [address] [place], [place] [address]BJF [Catalytic activity/Vol]16 U/LNormal7-52UnShelby Memorial HospitalComment on above:Performed By: #### [id number] #### [facility] ([facility]) [address] [place], [place] [address]Xuxkb gap [Moles/Vol]8 mmol/LNormal7-20UnShelby Memorial HospitalComment on above:Performed By: #### [id number] #### [facility] ([facility]) [address] [place], [place] [address]YDN [Catalytic activity/Vol]12 U/HNbu66-75ApaggcgprcShelby Memorial HospitalComment on above:Performed By: #### [id number] #### [facility] ([facility]) [address] [place], [place] [address]Rjtepjowl [Mass/Vol]0.4 mg/dLNormal0.3-1.0UnShelby Memorial HospitalComment on above:Performed By: #### [id number] #### [facility] ([facility]) [address] [place], [place] [address]Syziaqe [Mass/Vol]8.3 mg/dLLow8.6-10.3UnShelby Memorial HospitalComment on above:Performed By: #### [id number] #### [facility] ([facility]) [address] [place], [place] [address]Hlvmqxjz [Moles/Vol]101 mmol/TXwsysm17-456SkljuolummShelby Memorial HospitalComment on above:Performed By: #### [id number] #### [facility] ([facility]) [address] [place] [address]MS1 [Moles/Vol]28 mmol/XRlipkb38-64OdaabqnizwShelby Memorial HospitalComment on above:Performed By: #### [id number] #### [facility] ([facility]) [address] [place] [address]Xvwrssovdt [Mass/Vol]0.55 mg/dLLow0.70-1.30UnShelby Memorial HospitalComment on above:Performed By: #### [id number] #### [facility] ([facility]) [address] [place] [address]XDFXBBUBBB FILTRATION RATE ML/MIN/1.73 SQ M.DMDDHLGVU13.3 mL/min/1.73m*2Normal>60.0UnShelby Memorial HospitalComment on above: Result Comment: [facility]???s estimated glomerular filtration rate (eGFR) will [...] group of individuals.Performed By: #### [id number] #### [facility] ([facility]) [address] [place] [address]Bcaibak [Mass/Vol]102 mg/yHSuta31-306KmvqalixmbShelby Memorial HospitalComment on above:Performed By: #### [id number] #### [facility] ([facility]) [address] [place] [address]Xiftovrej [Moles/Vol]3.4 mmol/LLow3.5-5.1UnShelby Memorial HospitalComment on above:Performed By: #### [id number] #### [facility] ([facility]) [address] [place] [address]Qsnkonz [Mass/Vol]5.5 g/dLLow6.0-8.3UnShelby Memorial HospitalComment on above:Performed By: #### [id number] #### [facility] ([facility]) [address] [place] [address]Ldztjy [Moles/Vol]134 mmol/KPuy089-792EtqohjtvfiShelby Memorial HospitalComment on above:Performed By: #### [id number] #### [facility] ([facility]) [address] [place] [address]Jzxn nitrogen [Mass/Vol]10 mg/dLNormal7-25UnShelby Memorial HospitalComment on above:Performed By: #### [id number] #### [facility] ([facility]) [address] [place] [address]UDNU NITROGEN/CREATININE (MASS RATIO) IN SER/PLAS18.2Normal [facility] HospitalComment on above:Performed By: #### [id number] #### [facility] ([facility]) [address] [place], [place] [address]KCZFIVJ FUNCTION PANELon 05-43-5912Ebqvdcurz [Mass/Vol]0.2 mg/dL Normal0-0.2[facility] HospitalComment on above:Performed By: #### [id number] #### [facility] ([facility]) [address] [place] [address]DISFJLOYPrw 73-05-5367Kwveegrjj [Mass/Vol]1.6 mg/dLLow1.9-2.7 [facility] HospitalComment on above:Performed By: #### [id number] #### [facility] ([facility]) [address] [place], [place] [address]PZPUT METABOLIC PANELon 82-95-5468Raotf gap [Moles/Vol]9 mmol/L Normal7-20UnShelby Memorial HospitalComment on above:Performed By: #### [id number] #### [facility] ([facility]) [address] [place], [place] [address]Wehzbyl [Mass/Vol]8.7 mg/dLNormal8.6-10.3UnShelby Memorial HospitalComment on above:Performed By: #### [id number] #### [facility] ([facility]) [address] [place] [address]Weibfcem [Moles/Vol]100 mmol/DAqrxij93-543EtdkugmohpShelby Memorial HospitalComment on above:Performed By: #### [id number] #### [facility] ([facility] [address] [place] [address]IU7 [Moles/Vol]29 mmol/DLwnuay99-18WpimsovldpShelby Memorial HospitalComment on above:Performed By: #### [id number] #### [facility] ([facility]) [address] [place] [address]Bdsgthirfu [Mass/Vol]0.52 mg/dLLow0.70-1.30UnShelby Memorial HospitalComment on above:Performed By: #### [id number] #### [facility] ([facility] [address] [place] [address]PLUUTTGPGY FILTRATION RATE ML/MIN/1.73 SQ M.OFVAIUTTD793.0 mL/min/1.73m*2Normal>60.0UnShelby Memorial HospitalComment on above: Result Comment: [facility]???s estimated glomerular filtration rate (eGFR) will [...] affect anyone group of individuals.Performed By: #### [id number] #### [facility] ([facility] [address] [place] [address]Dojpvdi [Mass/Vol]95 mg/iHLtrryj55-483XjthbmjqfuShelby Memorial HospitalComment on above:Performed By: #### [id number] #### [facility] ([facility] [address] [place] [address]Acmzfbixk [Moles/Vol]3.6 mmol/LNormal3.5-5.1UnShelby Memorial HospitalComment on above:Performed By: #### [id number] #### [facility] ([facility] [address] [place] [address]Eyxwjj [Moles/Vol]134 mmol/SVsz551-125VsptxitwyaShelby Memorial HospitalComment on above:Performed By: #### [id number] #### [facility] ([facility] [address] [place] [address]Pabx nitrogen [Mass/Vol]21 mg/dLNormal7-25UnShelby Memorial HospitalComment on above:Performed By: #### [id number] #### [facility] ([facility] [address] [place] [address]ONEU NITROGEN/CREATININE (MASS RATIO) IN SER/PLAS40.4Normal [facility] HospitalComment on above:Performed By: #### [id number] #### [facility] ([facility] [address] [place] [address]ESDdu 25-36-4[address]Lzchifjfazn distribution width (RBC) [Ratio]15.5 %High11.5-15.0UnShelby Memorial HospitalComment on above:Performed By: #### [id number] #### [facility] ([facility] [address] [place] [address]BRUXTIYHGHM MEAN CORPUSCULAR HEMOGLOBIN CONCENTRATION (G/DL) BY YRUKQXFGA91.8 g/dLLow32.0-35.0UnShelby Memorial HospitalComment on above:Performed By: #### [id number] #### [facility] ([facility] [address] [place] [address]Mcmlcaxzuh (Bld) [Volume fraction]28.0 %Low39.0-55.0UnShelby Memorial HospitalComment on above:Performed By: #### [id number] #### [facility] ([facility] [address] [place] [address]Lfreyaazbg (Bld) [Mass/Vol]8.9 g/dLLow13.0-17.0UnShelby Memorial HospitalComment on above:Performed By: #### [id number] #### [facility] ([facility] [address] [place] [address]VUR (RBC) [Entitic mass]31.3 fmHinhsw22.0-33.0UnShelby Memorial HospitalComment on above:Performed By: #### [id number] #### [facility] ([facility] [address] [place] [address]PRO (RBC) [Entitic vol]98.6 dJEpdd96.0-98.0UnShelby Memorial HospitalComment on above:Performed By: #### [id number] #### [facility] ([facility] [address] [place] [address]WDRLOKYAA (10*3/UL) IN BLOOD AUTOMATED [id number] 10*3/uLNormal 150-400UnShelby Memorial HospitalComment on above:Performed By: #### [id number] #### [facility] ([facility] [address] [place], [place] [address]YTG (Bld) [#/Vol]2.84 10*6/uLLow4.20-5.70UnShelby Memorial HospitalComment on above:Performed By: #### [id number] #### [facility] ([facility] [address] [place] [address]CLH (Bld) [#/Vol]5.94 10*3/uLNormal4.00-10.60UnShelby Memorial HospitalComment on above:Performed By: #### [id number] #### [facility] ([facility] [address] [place] [address]LNWmk 07-26-4456Pplwtnmgflt distribution width (RBC) [Ratio]16.1 %High11.5-15.0UnShelby Memorial HospitalComment on above:Performed By: #### [id number] #### [facility] ([facility] [address] [place], [place] [address]OPBQWVFGOIX MEAN CORPUSCULAR HEMOGLOBIN CONCENTRATION (G/DL) BY XJGLSPJPK90.9 g/dLLow32.0-35.0UnShelby Memorial HospitalComment on above:Performed By: #### [id number] #### [facility] ([facility]) [address] [place] [address]Kfozehnksz (Bld) [Volume fraction]25.6 %Low39.0-55.0UnShelby Memorial HospitalComment on above:Performed By: #### [id number] #### [facility] ([facility]) [address] [place] [address]Gfrpkxryfz (Bld) [Mass/Vol]7.9 g/dLLow13.0-17.0UnShelby Memorial HospitalComment on above:Performed By: #### [id number] #### [facility] ([facility] [address] [place] [address]AGR (RBC) [Entitic mass]30.9 cxOionih89.0-33.0UnShelby Memorial HospitalComment on above:Performed By: #### [id number] #### [facility] ([facility]) [address] [place] [address]AXE (RBC) [Entitic vol]100.0 sPEjpy96.0-98.0UnShelby Memorial HospitalComment on above:Performed By: #### [id number] #### [facility] ([facility]) [address] [place] [address]TZPJHMDRG (10*3/UL) IN BLOOD AUTOMATED [id number] 10*3/uLNormal 150-400UnShelby Memorial HospitalComment on above:Performed By: #### [id number] #### [facility] ([facility]) [address] [place] [address]NNC (Bld) [#/Vol]2.56 10*6/uLLow4.20-5.70UnShelby Memorial HospitalComment on above:Performed By: #### [id number] #### [facility] ([facility]) [address] [place] [address]ZFW (Bld) [#/Vol]8.31 10*3/uLNormal4.00-10.60UnShelby Memorial HospitalComment on above:Performed By: #### [id number] #### [facility] ([facility]) [address] [place] [address]DCMHWPSJGLION METABOLIC PANELon 07-02-7704Gqkousf [Mass/Vol]2.8 g/dLLow3.5-5.7UnShelby Memorial HospitalComment on above:Performed By: #### [id number] #### [facility] ([facility]) [address] [place] [address]XYM [Catalytic activity/Vol]112 U/IGmby31-295EhgoecbfhuShelby Memorial HospitalComment on above:Performed By: #### [id number] #### [facility] ([facility]) [address] [place] [address]AUJ [Catalytic activity/Vol]16 U/LNormal7-52UnShelby Memorial HospitalComment on above:Performed By: #### [id number] #### [facility] ([facility] [address] [place] [address]Esusf gap [Moles/Vol]8 mmol/LNormal7-20UnShelby Memorial HospitalComment on above:Performed By: #### [id number] #### [facility] ([facility] [address] [place] [address]ZRC [Catalytic activity/Vol]12 U/BMes86-50SfkcgssuicShelby Memorial HospitalComment on above:Performed By: #### [id number] #### [facility] ([facility] [address] [place] [address]Ttnaurmid [Mass/Vol]0.3 mg/dLNormal0.3-1.0UnShelby Memorial HospitalComment on above:Performed By: #### [id number] #### [facility] ([facility]) [address] [place] [address]Ekpvejm [Mass/Vol]8.6 mg/dLNormal8.6-10.3UnShelby Memorial HospitalComment on above:Performed By: #### [id number] #### [facility] ([facility] [address] [place] [address]Ainaybqm [Moles/Vol]100 mmol/IRyyaje84-897XmdsajenycShelby Memorial HospitalComment on above:Performed By: #### [id number] #### [facility] ([facility] [address] [place] [address]PP1 [Moles/Vol]29 mmol/PXvvtec54-10MzwlkruwjuShelby Memorial HospitalComment on above:Performed By: #### [id number] #### [facility] [facility]) [address] [place] [address]Inrkrnddtz [Mass/Vol]0.78 mg/dLNormal0.70-1.30UnShelby Memorial HospitalComment on above:Performed By: #### [id number] #### [facility] ([facility]) [address] [place] [address]YQDOGOJZLT FILTRATION RATE ML/MIN/1.73 SQ M.QRDAYUJTA93.5 mL/min/1.73m*2Normal>60.0UnShelby Memorial HospitalComment on above: Result Comment: The [facility]???s estimated glomerular filtration rate (eGFR) will [...] group of individuals.Performed By: #### [id number] #### [facility] ([facility]) [address] [place] [address]Envxzji [Mass/Vol]107 mg/aYKznx47-914RmzzwvskczShelby Memorial HospitalComment on above:Performed By: #### [id number] #### [facility] ([facility]) [address] [place], [place] [address]Rildzkyop [Moles/Vol]3.9 mmol/LNormal3.5-5.1UnShelby Memorial HospitalComment on above:Performed By: #### [id number] #### [facility] ([facility]) [address] [place], [place] [address]Mytussz [Mass/Vol]6.0 g/dLNormal6.0-8.3UnShelby Memorial HospitalComment on above:Performed By: #### [id number] #### [facility] ([facility]) [address] [place], [place] [address]Yxwxsr [Moles/Vol]133 mmol/YAsu390-458ObrjdudrieShelby Memorial HospitalComment on above:Performed By: #### [id number] #### [facility] ([facility]) [address] [place], [place] [address]Eyxe nitrogen [Mass/Vol]37 mg/dLHigh7-25UnShelby Memorial HospitalComment on above:Performed By: #### [id number] #### [facility] ([facility]) [address] [place], [place] [address]BAMW NITROGEN/CREATININE (MASS RATIO) IN SER/PLAS47.4Normal [facility] HospitalComment on above:Performed By: #### [id number] #### [facility] ([facility]) [address] [place], [place] [address]XAJPD METABOLIC PANELon 23-36-7335Xmmzq gap [Moles/Vol]11 mmol/L Normal7-20UnShelby Memorial HospitalComment on above:Performed By: #### [id number] #### [facility] ([facility]) [address] [place], [place] [address]Qcoqktm [Mass/Vol]8.7 mg/dLNormal8.6-10.3UnShelby Memorial HospitalComment on above:Performed By: #### [id number] #### [facility] ([facility]) [address] [place], [place] [address]Ahtyqzgi [Moles/Vol]102 mmol/EBdgdng99-453NoznfcdgrrShelby Memorial HospitalComment on above:Performed By: #### [id number] #### [facility] ([facility]) [address] [place] [address]OU4 [Moles/Vol]25 mmol/BXlikim30-01OkkdjbziqqShelby Memorial HospitalComment on above:Performed By: #### [id number] #### [facility] ([facility]) [address] [place] [address]Jkbkftuart [Mass/Vol]0.82 mg/dLNormal0.70-1.30UnShelby Memorial HospitalComment on above:Performed By: #### [id number] #### [facility] ([facility]) [address] [place] [address]WVYAASPJDD FILTRATION RATE ML/MIN/1.73 SQ M.GJWFRDOCA26.2 mL/min/1.73m*2Normal>60.0UnShelby Memorial HospitalComment on above: Result Comment: The [facility]???s estimated glomerular filtration rate (eGFR) will [...] affect anyone group of individuals.Performed By: #### [id number] #### [facility] ([facility]) [address] [place] [address]Eraaezp [Mass/Vol]55 mg/dWMxp86-915NstzbkuppiShelby Memorial HospitalComment on above:Performed By: #### [id number] #### [facility] ([facility]) [address] [place] [address]Yelujoonz [Moles/Vol]3.8 mmol/LNormal3.5-5.1UnShelby Memorial HospitalComment on above:Performed By: #### [id number] #### [facility] ([facility]) [address] [place] [address]Pttxhw [Moles/Vol]134 mmol/DYuu226-632CcaaeorbhjShelby Memorial HospitalComment on above:Performed By: #### [id number] #### [facility] ([facility]) [address] [place] [address]Zuzw nitrogen [Mass/Vol]41 mg/dLHigh7-25UnShelby Memorial HospitalComment on above:Performed By: #### [id number] #### [facility] ([facility]) [address] [place] [address]BNKB NITROGEN/CREATININE (MASS RATIO) IN SER/PLAS50.0Normal [facility] HospitalComment on above:Performed By: #### [id number] #### [facility] ([facility]) [address] [place] [address]ZRWan 02-84-9138Gotkejcihqx distribution width (RBC) [Ratio]15.8 %High11.5-15.0UnShelby Memorial HospitalComment on above:Performed By: #### [id number] #### [facility] ([facility]) [address] [place] [address]RUYXLDAGFMC MEAN CORPUSCULAR HEMOGLOBIN CONCENTRATION (G/DL) BY RPAJAKQVM25.4 g/dLLow32.0-35.0UnShelby Memorial HospitalComment on above:Performed By: #### [id number] #### [facility] ([facility]) [address] [place] [address]Tgyvvoyhgc (Bld) [Volume fraction]29.3 %Low39.0-55.0UnShelby Memorial HospitalComment on above:Performed By: #### [id number] #### [facility] ([facility]) [address] [place], [place] [address]Mcsjykdlst (Bld) [Mass/Vol]8.9 g/dLLow13.0-17.0UnShelby Memorial HospitalComment on above:Performed By: #### [id number] #### [facility] ([facility]) [address] [place] [address]ATB (RBC) [Entitic mass]30.7 puYepxzz68.0-33.0UnShelby Memorial HospitalComment on above:Performed By: #### [id number] #### [facility] ([facility]) [address] [place] [address]QFI (RBC) [Entitic vol]101.0 uGVgow69.0-98.0UnShelby Memorial HospitalComment on above:Performed By: #### [id number] #### [facility] ([facility]) [address] [place] [address]QUSRENEJX (10*3/UL) IN BLOOD AUTOMATED [id number] 10*3/uLNormal 150-400UnShelby Memorial HospitalComment on above:Performed By: #### [id number] #### [facility] ([facility]) [address] [place] [address]HDY (Bld) [#/Vol]2.90 10*6/uLLow4.20-5.70UnShelby Memorial HospitalComment on above:Performed By: #### [id number] #### [facility] ([facility]) [address] [place] [address]EJG (Bld) [#/Vol]11.69 10*3/uLHigh4.00-10.60UnShelby Memorial HospitalComment on above:Performed By: #### [id number] #### [facility] ([facility]) [address] [place] [address]ANPKUSZEXti 24-06-4120Gczqeoolw [Mass/Vol]2.0 mg/dLNormal1.9-2.7 [facility] HospitalComment on above:Performed By: #### [id number] #### [facility] ([facility]) [address] [place] [address]WCAMRJXGRSoz 31-22-95[address]Fbonnlezz [Mass/Vol]2.1 mg/dLLow2.5-5.0 [facility] HospitalComment on above:Performed By: #### [id number] #### [facility] ([facility]) [address] [place] [address]DVJBA METABOLIC PANELon 80-06-0412Bohbu gap [Moles/Vol]10 mmol/L Normal7-20UnShelby Memorial HospitalComment on above:Performed By: #### [id number] #### [facility] ([facility]) [address] [place] [address]Tnjoxih [Mass/Vol]8.3 mg/dLLow8.6-10.3UnShelby Memorial HospitalComment on above:Performed By: #### [id number] #### [facility] ([facility]) [address] [place] [address]Rxbdqxbv [Moles/Vol]100 mmol/QVwsenc08-501NjcnrrveqzShelby Memorial HospitalComment on above:Performed By: #### [id number] #### [facility] ([facility]) [address] [place] [address]LN1 [Moles/Vol]26 mmol/OXlmpkg69-11TqhewhdtprShelby Memorial HospitalComment on above:Performed By: #### [id number] #### [facility] ([facility]) [address] [place] [address]Zhypubysej [Mass/Vol]0.64 mg/dLLow0.70-1.30UnShelby Memorial HospitalComment on above:Performed By: #### [id number] #### [facility] ([facility]) [address] [place] [address]EKPTKJOZGP FILTRATION RATE ML/MIN/1.73 SQ M.IJKBJODRU46.9 mL/min/1.73m*2Normal>60.0UnShelby Memorial HospitalComment on above: Result Comment: The [facility]???s estimated glomerular filtration rate (eGFR) will [...] group of individuals.Performed By: #### [id number] #### [facility] ([facility]) [address] [place], [place] [address]Kuvpzue [Mass/Vol]117 mg/iRKoqu51-041IqqulyydqeShelby Memorial HospitalComment on above:Performed By: #### [id number] #### [facility] ([facility]) [address] [place], [place] [address]Ielwczidk [Moles/Vol]3.9 mmol/LNormal3.5-5.1UnShelby Memorial HospitalComment on above:Performed By: #### [id number] #### [facility] ([facility]) [address] [place], [place] [address]Zoxvow [Moles/Vol]132 mmol/JPyi085-632CvhnkvobdnShelby Memorial HospitalComment on above:Performed By: #### [id number] #### [facility] ([facility]) [address] [place], [place] [address]Ttte nitrogen [Mass/Vol]30 mg/dLHigh7-25UnShelby Memorial HospitalComment on above:Performed By: #### [id number] #### [facility] ([facility]) [address] [place], [place] [address]LMZF NITROGEN/CREATININE (MASS RATIO) IN SER/PLAS46.9Normal [facility] HospitalComment on above:Performed By: #### [id number] #### [facility] ([facility]) [address] [place], [place] [address]USNrc 52-92-8849Twkpdvuxjzj distribution width (RBC) [Ratio]16.1 %High11.5-15.0UnShelby Memorial HospitalComment on above:Performed By: #### [id number] #### [facility] ([facility]) [address] [place], [place] [address]DAAEVVXBVIM MEAN CORPUSCULAR HEMOGLOBIN CONCENTRATION (G/DL) BY IBGKNCLOB34.0 g/dLLow32.0-35.0UnShelby Memorial HospitalComment on above:Performed By: #### [id number] #### [facility] ([facility]) [address] [place] [address]Akbwkilwbu (Bld) [Volume fraction]25.5 %Low39.0-55.0UnShelby Memorial HospitalComment on above:Performed By: #### [id number] #### [facility] ([facility]) [address] [place] [address]Mjamdsmvjm (Bld) [Mass/Vol]7.9 g/dLLow13.0-17.0UnShelby Memorial HospitalComment on above:Performed By: #### [id number] #### [facility] ([facility]) [address] [place] [address]IWO (RBC) [Entitic mass]31.1 qxZdgrvy77.0-33.0UnShelby Memorial HospitalComment on above:Performed By: #### [id number] #### [facility] ([facility]) [address] [place] [address]ITY (RBC) [Entitic vol]100.4 iHYzbn34.0-98.0UnShelby Memorial HospitalComment on above:Performed By: #### [id number] #### [facility] ([facility]) [address] [place] [address]ELYVKPCMC (10*3/UL) IN BLOOD AUTOMATED [id number] 10*3/uLNormal 150-400UnShelby Memorial HospitalComment on above:Performed By: #### [id number] #### [facility] ([facility]) [address] [place] [address]QLH (Bld) [#/Vol]2.54 10*6/uLLow4.20-5.70UnShelby Memorial HospitalComment on above:Performed By: #### [id number] #### [facility] ([facility]) [address] [place] [address]YLE (Bld) [#/Vol]10.82 10*3/uLHigh4.00-10.60UnShelby Memorial HospitalComment on above:Performed By: #### [id number] #### [facility] ([facility]) [address] [place] [address]NSSROZ CULTUREon 66-06-9325YRYB STAIN RESULTNormalUniversUniversity Hospitals Geauga Medical CenterComment on above:Order Comment: Moderate Growth Colonies Consistent with Upper Respiratory FloraResult Comment: 10-25 Epithelial cells per low power field >25 Polys Per Low Power Field Moderate Gram positive cocci in clusters Few Gram positive cocci in chainsPerformed By: #### [id number] #### [facility] ([facility]) [address] [place] [address]ICTOM METABOLIC PANELon 85-87-3068Qmzfb gap [Moles/Vol]11 mmol/L Normal7-20UnShelby Memorial HospitalComment on above:Performed By: #### [id number] #### [facility] ([facility]) [address] [place], [place] [address]Gtrnmcj [Mass/Vol]8.7 mg/dLNormal8.6-10.3UnShelby Memorial HospitalComment on above:Performed By: #### [id number] #### [facility] ([facility]) [address] [place] [address]Zptgboxq [Moles/Vol]100 mmol/SPximkq86-581JoibjgxdqtShelby Memorial HospitalComment on above:Performed By: #### [id number] #### [facility] ([facility]) [address] [place] [address]JE1 [Moles/Vol]28 mmol/IPfznoz73-93KqhihjihptShelby Memorial HospitalComment on above:Performed By: #### [id number] #### [facility] ([facility]) [address] [place], [place] [address]Ikftaizqra [Mass/Vol]0.65 mg/dLLow0.70-1.30UnShelby Memorial HospitalComment on above:Performed By: #### [id number] #### [facility] ([facility]) [address] [place] [address]TDHTUEPNSM FILTRATION RATE ML/MIN/1.73 SQ M.MLIBYNVKH34.5 mL/min/1.73m*2Normal>60.0UnShelby Memorial HospitalComment on above: Result Comment: [facility]???s estimated glomerular filtration rate (eGFR) will [...] group of individuals.Performed By: #### [id number] #### [facility] ([facility]) [address] [place] [address]Rnpeslx [Mass/Vol]120 mg/gIOzqv17-377EjriloyuwpShelby Memorial HospitalComment on above:Performed By: #### [id number] #### [facility] ([facility]) [address] [place] [address]Whpvuokcu [Moles/Vol]4.6 mmol/LNormal3.5-5.1UnShelby Memorial HospitalComment on above:Performed By: #### [id number] #### [facility] ([facility]) [address] [address]Dvkofs [Moles/Vol]134 mmol/BBmj467-594YbppsvwkhdShelby Memorial HospitalComment on above:Performed By: #### [id number] #### [facility] ([facility]) [address] [place], [place] [address]Fgqx nitrogen [Mass/Vol]28 mg/dLHigh7-25UnShelby Memorial HospitalComment on above:Performed By: #### [id number] #### [facility] ([facility]) [address] [place], [place] [address]CVIP NITROGEN/CREATININE (MASS RATIO) IN SER/PLAS43.1Normal [facility] HospitalComment on above:Performed By: #### [id number] #### [facility] ([facility]) [address] [place] [address]DZZsr 91-92-7068Czjrlpaffnm distribution width (RBC) [Ratio]16.3 %High11.5-15.0UnShelby Memorial HospitalComment on above:Performed By: #### [id number] #### [facility] ([facility]) [address] [place] [address]QYQGPSYIZDW MEAN CORPUSCULAR HEMOGLOBIN CONCENTRATION (G/DL) BY UPNTCEOAL09.9 g/dLLow32.0-35.0UnShelby Memorial HospitalComment on above:Performed By: #### [id number] #### [facility] ([facility]) [address] [place] [address]Nyqkuqbilf (Bld) [Volume fraction]27.8 %Low39.0-55.0UnShelby Memorial HospitalComment on above:Performed By: #### [id number] #### [facility] ([facility]) [address] [place] [address]Iyvcsagsfo (Bld) [Mass/Vol]8.6 g/dLLow13.0-17.0UnShelby Memorial HospitalComment on above:Performed By: #### [id number] #### [facility] ([facility] [address] [place] [address]AIV (RBC) [Entitic mass]30.2 rxHliyrx52.0-33.0UnShelby Memorial HospitalComment on above:Performed By: #### [id number] #### [facility] ([facility]) [address] [place] [address]UZL (RBC) [Entitic vol]97.5 mHImhivl13.0-98.0UnShelby Memorial HospitalComment on above:Performed By: #### [id number] #### [facility] ([facility]) [address] [place] [address]NKAOJDCFT (10*3/UL) IN BLOOD AUTOMATED [id number] 10*3/uLNormal 150-400UnShelby Memorial HospitalComment on above:Performed By: #### [id number] #### [facility] ([facility]) [address] [place] [address]AOB (Bld) [#/Vol]2.85 10*6/uLLow4.20-5.70UnShelby Memorial HospitalComment on above:Performed By: #### [id number] #### [facility] ([facility]) [address] [place], [place] [address]XNU (Bld) [#/Vol]10.51 10*3/uLNormal4.00-10.60UnShelby Memorial HospitalComment on above:Performed By: #### [id number] #### [facility] ([facility]) [address] [place], [place] [address]VT GUIDED PLEURA CATH INSERT (OPAL)on 95-60-2295CR GUIDED PLEURA CATH INSERT (OPAL)NormalThe MetroHealth SystemXA THORACENTESIS W/ IMAGE GUIDE (OPAL)on 56-32-7379KD THORACENTESIS W/ IMAGE GUIDE (OPAL)NormalThe MetroHealth SystemCBC WITH AUTO DIFFERENTIALon 43-87-6968Umornbzbd (Bld) [#/Vol]0.04 10*3/uL Normal0.00-0.20UnShelby Memorial HospitalComment on above:Performed By: #### [id number] #### [facility] ([facility]) [address] [place], [place] [address]Wdoprotcm/100 WBC (Bld)0.4 %Normal0.0-1.0UnShelby Memorial HospitalComment on above:Performed By: #### [id number] #### [facility] ([facility]) [address] [place], [place] [address]Cuugoqkkzyw (Bld) [#/Vol]0.52 10*3/uLHigh0.00-0.50UnShelby Memorial HospitalComment on above:Performed By: #### [id number] #### [facility] ([facility]) [address] [place] [address]Jyolwjcxabt/100 WBC (Bld)4.9 %Normal0.0-6.0UnShelby Memorial HospitalComment on above:Performed By: #### [id number] #### [facility] ([facility]) [address] [place] [address]Tufsjbffmkg distribution width (RBC) [Ratio]16.7 %High11.5-15.0 [facility] HospitalComment on above:Performed By: #### [id number] #### [facility] ([facility] [address] [place] [address]TYMBJRTFOUY MEAN CORPUSCULAR HEMOGLOBIN CONCENTRATION (G/DL) BY CAUKRAAIS91.5 g/dLLow32.0-35.0UnShelby Memorial HospitalComment on above:Performed By: #### [id number] #### [facility] ([facility] [address] [place] [address]Zpwlluaang (Bld) [Volume fraction]32.4 %Low39.0-55.0UnShelby Memorial HospitalComment on above:Performed By: #### [id number] #### [facility] ([facility]) [address] [place] [address]Zydxziccnt (Bld) [Mass/Vol]10.2 g/dLLow13.0-17.0UnShelby Memorial HospitalComment on above:Performed By: #### [id number] #### [facility] ([facility] [address] [place] [address]Ancaqfbu granulocytes (Bld) [#/Vol]0.28 10*3/uLHigh0.00-0.20 [facility] HospitalComment on above:Performed By: #### [id number] #### [facility] ([facility] [address] [place] [address]Uzvminul granulocytes/100 WBC (Bld)2.6 %High0.0-1.0UnShelby Memorial HospitalComment on above:Performed By: #### [id number] #### [facility] ([facility] [address] [facility] [place] [address]Zscdhlxaybc (Bld) [#/Vol]1.09 10*3/uLLow1.20-4.00UnShelby Memorial HospitalComment on above:Performed By: #### [id number] #### [facility] ([facility] [address] [place], [place] [address]Efjisvpiska/100 WBC (Bld)10.3 %Low20.0-45.0UnShelby Memorial HospitalComment on above:Performed By: #### [id number] #### [facility] ([facility] [address] [place], [place] [address]IKR (RBC) [Entitic mass]30.7 qqLlbvbm83.0-33.0UnShelby Memorial HospitalComment on above:Performed By: #### [id number] #### [facility] ([facility]) [address], [place] [address]KFR (RBC) [Entitic vol]97.6 sGYrlyqc67.0-98.0UnShelby Memorial HospitalComment on above:Performed By: #### [id number] #### [facility] ([facility]) [address], [place] [address]Eoraxhkon (Bld) [#/Vol]0.80 10*3/uLNormal0.10-1.00UnShelby Memorial HospitalComment on above:Performed By: #### [id number] #### [facility] ([facility]) [address], [place] [address]Ranqpwjtp/100 WBC (Bld)7.5 %Normal5.0-12.0UnShelby Memorial HospitalComment on above:Performed By: #### [id number] #### [facility] ([facility]) [address], [place] [address]Zaleafjxujd (Bld) [#/Vol]7.88 10*3/uLHigh1.60-7.60UnShelby Memorial HospitalComment on above:Performed By: #### [id number] #### [facility] ([facility]) [address] [place] [address]Hacmqvesycw/100 WBC (Bld)74.3 %High40.0-72.0UnShelby Memorial HospitalComment on above:Performed By: #### [id number] #### [facility] ([facility]) [address] [place] [address]ZSZW (PER 100 WBCS) BY AUTOMATED COUNT0.0 %Nwsnje0PsywmatshsShelby Memorial HospitalComment on above:Performed By: #### [id number] #### [facility] ([facility]) [address] [place] [address]ZKWYAJXHZ (10*3/UL) IN BLOOD AUTOMATED GMMHM232 10*3/uLNormal 150-400UnShelby Memorial HospitalComment on above:Performed By: #### [id number] #### [facility] ([facility]) [address] [place] [address]JTH (Bld) [#/Vol]3.32 10*6/uLLow4.20-5.70UnShelby Memorial HospitalComment on above:Performed By: #### [id number] #### [facility] ([facility]) [address] [place] [address]ACW (Bld) [#/Vol]10.61 10*3/uLHigh4.00-10.60UnShelby Memorial HospitalComment on above:Performed By: #### [id number] #### [facility] ([facility]) [address] [place], [place] [address]IXFJONKRROFQD METABOLIC PANELon 92-81-3730Ailrbqz [Mass/Vol]2.9 g/dLLow3.5-5.7UnShelby Memorial HospitalComment on above:Performed By: #### [id number] #### [facility] ([facility]) [address] [place], [place] [address]III [Catalytic activity/Vol]150 U/QEjnf27-840YbdipnqxdcShelby Memorial HospitalComment on above:Performed By: #### [id number] #### [facility] ([facility]) [address] [place], [place] [address]BAO [Catalytic activity/Vol]17 U/LNormal7-52UnShelby Memorial HospitalComment on above:Performed By: #### [id number] #### [facility] ([facility]) [address] [place], [place] [address]Zgvuw gap [Moles/Vol]8 mmol/LNormal7-20UnShelby Memorial HospitalComment on above:Performed By: #### [id number] #### [facility] ([facility]) [address] [place], [place] [address]FDB [Catalytic activity/Vol]19 U/EEnqzsx42-55XhwtlnuuopShelby Memorial HospitalComment on above:Performed By: #### [id number] #### [facility] ([facility]) [address] [place], [place] [address]Ztfugaayo [Mass/Vol]0.5 mg/dLNormal0.3-1.0UnShelby Memorial HospitalComment on above:Performed By: #### [id number] #### [facility] ([facility] [address] [place], [place] [address]Fzehqxt [Mass/Vol]8.3 mg/dLLow8.6-10.3UnShelby Memorial HospitalComment on above:Performed By: #### [id number] #### [facility] ([facility] [address] [place], [place] [address]Fyoztphq [Moles/Vol]100 mmol/WLfaaia32-474VisaenizupShelby Memorial HospitalComment on above:Performed By: #### [id number] #### [facility] ([facility] [address] [place], [place] [address]IL4 [Moles/Vol]30 mmol/JYhtfqz01-61UrdbxdolinShelby Memorial HospitalComment on above:Performed By: #### [id number] #### [facility] ([facility] [address] [place], [place] [address]Zoicgxrfqi [Mass/Vol]0.78 mg/dLNormal0.70-1.30UnShelby Memorial HospitalComment on above:Performed By: #### [id number] #### [facility] ([facility] [address] [place], [place] [address]HQLMDIPDXC FILTRATION RATE ML/MIN/1.73 SQ M.IMFHKSOZS76.5 mL/min/1.73m*2Normal>60.0UnShelby Memorial HospitalComment on above: Result Comment: The [facility]???s estimated glomerular filtration rate (eGFR) will [...] group of individuals.Performed By: #### [id number] #### [facility] ([facility] [address], [place] [address]Cejvtuq [Mass/Vol]109 mg/ySPqsy92-013AjehtaycjyShelby Memorial HospitalComment on above:Performed By: #### [id number] #### [facility] ([facility] [address] [place], [place] [address]Eounpqcni [Moles/Vol]3.7 mmol/LNormal3.5-5.1UnShelby Memorial HospitalComment on above:Performed By: #### [id number] #### [facility] ([facility] [address] [place], [place] [address]Hrasaxe [Mass/Vol]5.5 g/dLLow6.0-8.3UnShelby Memorial HospitalComment on above:Performed By: #### [id number] #### [facility] ([facility] [address] [facility] [place], [place] [address]Tgbjuq [Moles/Vol]134 mmol/BNxb911-342DlfhzshluzShelby Memorial HospitalComment on above:Performed By: #### [id number] #### [facility] [address] [place], [place] [address]Wjsf nitrogen [Mass/Vol]29 mg/dLHigh7-25UnShelby Memorial HospitalComment on above:Performed By: #### [id number] #### [facility] ([facility] [address] [place], [place] [address]NOBH NITROGEN/CREATININE (MASS RATIO) IN SER/PLAS37.2Normal [facility] HospitalComment on above:Performed By: #### [id number] #### [facility] ([facility] [address] [place], [place] [address]MIKNEGQAMbn 93-82-4303Xujtzzwim [Mass/Vol]2.0 mg/dLNormal1.9-2.7 [facility] HospitalComment on above:Performed By: #### [id number] #### [facility] ([facility] [address] [place], [place] [address]FBXYSHMDZYaa 23-61-2706Nsydsbrcn [Mass/Vol]2.7 mg/dLNormal 2.5-5.0UnShelby Memorial HospitalComment on above:Performed By: #### LAB15 #### [facility] ([facility] [address] [place], [place] [address]WXCU FXA-LMW HEPARINon 81-48-4276ZYKS FXA-LMW HEPARIN ASSAY0.26 IU/mLNormalThe [facility] CampusroShelby Memorial Hospital SystemComment on above:Order Comment: The recommended therapeutic range for treatment of thrombosis with Low Molecular Weight Heparin is 0.5 - 1.0 IU/mLThe recommended range for VTE prophylaxis with Low Molecular Weight Heparin is 0.2 - 0.4 IU/mL.Performed By: #### ANGELINA ####[facility] IAYRDBOCLL4517 [place], [address]AMHFE METABOLIC PANELon 63-46-9918Dnsmo gap [Moles/Vol]12 mmol/KTitmli64-51Fmr [facility] CampusroShelby Memorial Hospital System Comment on above:Performed By: #### PHOS, MG, CH8 ####[facility] XQGPRDCVKX9091 [place], [address]Tfvvbnn [Mass/Vol]8.4 mg/dLLow8.6-10.3The [facility] CampusroHealth SystemComment on above:Performed By: #### MG CHI, CH8 ####[facility] QVMIRAOWGX3077 [place], [place], [address] Chloride [Moles/Vol]97 mmol/YAfc83-517Wew [facility] CampusroHealth SystemComment on above:Performed By: #### MG CHI, CH8 ####[facility] UCRYMDBVMW5535 [place], [address]UY8 [Moles/Vol]29 mmol/ZUacash09-11Olq [facility] CampusroHealth SystemComment on above:Performed By: #### MG CHI, CH8 ####[facility] AMZQJSFPWC0726 [place], [address]Tmktovxnqo [Mass/Vol]0.58 mg/dLLow0.70-1.30The [facility] CampusroShelby Memorial Hospital SystemComment on above:Performed By: #### MG CHI, CH8 ####S PATHOLOGY MHACBNYGOB4375 [place], [address]YWEBRXKTG GFR (CKD-EPI)97 mL/min/1.73sqmNormal>=60 The [facility] SystemComment on above:Result Comment: 2020 CKD EPI [...] Inclusion of Race in Diagnosing Kidney Disease. English Journal of Kidney Diseases 202;79(2):26 8-88.e1.2. N Engl J Med 1 Vol. 385 Issue 19 Pages 7746-0179Performed By: #### MG CHI, CH8 ####[facility] JWICLLKHSU4944 [place], [address]Mvrwrpp [Mass/Vol]104 mg/xCZdfopn78-731Bma [facility] SystemComment on above:Performed By: #### MG CHI, CH8 ####S PATHOLOGY ESMRSJBUWQ3397 [place], [address]Ykyqocklp [Moles/Vol]4.1 mmol/LNormal 3.5-5.0The [facility] HospitalHealth SystemComment on above:Performed By: #### MG CHI, CH8 ####S PATHOLOGY AUQXPJPEKJ8845 [place], [place], Sodium [Moles/Vol]134 mmol/VTlv173-222Gym [facility] HospitalHealth SystemComment on above: Performed By: #### MG CHI, CH8 ####S PATHOLOGY CMKYXODCWG4873 [place], [address]Nxov nitrogen [Mass/Vol]22 mg/dLNormal7-25The [facility] SystemComment on above:Performed By: #### MG CHI, LLOYD8 ####[facility] PATHOLOGY MSPXTCZQ[address] [place] [address], [address]VAWYNPTA BLOOD COUNTon 28-86-8299Klnbvlryuxj distribution width (RBC) [Ratio]16.9 %High 11.5-14.5The [facility] SystemComment on above:Performed By: #### CBC ####[facility] PATHOLOGY EGXJROANPO3937 [place], [address]Catditnsdw (Bld) [Volume fraction]33.8 %Low41.0-53.0The [facility] SystemComment on above: Performed By: #### CBC ####[facility] PATHOLOGY DXUAACXBKR3208 [place], [address]Svvabjgviu (Bld) [Mass/Vol]11.4 g/dLLow13.9-16.3 The [facility] SystemComment on above:Performed By: #### CBC ####[facility] PATHOLOGY WFRUWKSXZG1852 [place], [address]LHG (RBC) [Entitic mass]31.5 acVbsapy00.0-34.0The [facility] SystemComment on above:Performed By: #### CBC ####[facility] PATHOLOGY OAKBASJCED[address] [place] [address], [address]CULK (RBC) [Mass/Vol]33.8 g/rIZmzlaf71.0-35.9The [facility]ro[facility] System Comment on above:Performed By: #### CBC ####[facility] PATHOLOGY TTPVMIIXXQ[address] [place] [address], [address]BQR (RBC) [Entitic vol]93 fLNormal 80-100The [facility] CampusroHealth SystemComment on above:Performed By: #### CBC ####[facility] PATHOLOGY HRQCDNUWTT[address] [place] [address], [address]Xvjrkabh mean volume (Bld) [Entitic vol]7.2 fLLow7.5-11.2The [facility] CampusroHealth SystemComment on above:Performed By: #### CBC ####[facility] PATHOLOGY XDMWDRUPSI[address] [place] [address], [address]Tlquffuqe (Bld) [#/Vol]354 10*3/aNNkloqd798-057Ezz [facility] CampusroHealth SystemComment on above:Performed By: #### CBC ####[facility] PATHOLOGY O[address]AVTYWQI[address] [place] [address], [address]IKC (Bld) [#/Vol]3.62 10*6/uLLow4.50-5.90The [facility] CampusroHealth SystemComment on above:Performed By: #### CBC ####[facility] PATHOLOGY ERUFBQWYJO[address] [place] [address], [address]SSY (Bld) [#/Vol]9.4 10*3/uLNormal4.5-11.5The [facility] CampusroHealth SystemComment on above: Performed By: #### CBC ####[facility] PATHOLOGY DYPZLIIFGV[address] [place] [address], [address]Hctlpzipde 93-86-1464Oazyeosfmubsd Authentication Interface Message TextNormalThe [facility] CampusroHealth SystemDischarge Planning Noteon 65-86-7878Puxaqxxsreydp Authentication Interface Message TextNormalThe [facility] CampusroHealth SystemMAGNESIUMon 41-94-0582Jlgczwfrm [Mass/Vol]2.0 mg/dLNormal 1.9-2.7The [facility] CampusroHealth SystemComment on above:Performed By: #### PHOS, MG, CH8 ####S PATHOLOGY RUNUEEIHJF8064 [place], [place], PHOSPHORUSon 10-83-4087Owntxwnpz [Mass/Vol]2.4 mg/dLLow2.5-5.0The [facility] SystemComment on above:Performed By: #### MG CHI, AMMON ####[facility] JOITOYEBRM7195 [place], [address]Zwptijbp Noteson 85-59-4469Lxswzxcbdxfgc Authentication Interface Message TextNormThe University of [facility] Medical Centere [facility] Community CampusroAngiodroid SystemTranscription Authentication Interface Message TextNormAmesbury Health CenterAngiodroid SystemTranscription Authentication Interface Message TextNormChesapeake Regional Medical CenterroAngiodroid SystemXR CHEST AP OR PA 1 VIEWon 27-49-5818YC CHEST AP OR PA 1 VIEW NormalThe [facility] Community CampusroAngiodroid SystemXR CHEST AP OR PA 1 VIEWNormAmesbury Health CenterAngiodroid System XR Chest Single viewon 69-24-3482AOSHDYQBHKZ: XR CHEST AP OR PA 1 VIEW [...] in the pleural fissures. MACRO: None Gerber Fxo, DO - 06/10/2024 EXAMINATION: XR CHEST AP [...] Chest Single viewOrdered By: Gerber Mcdaniel on 56-96-7994OggahQgirju Work Phone: bASIC METABOLIC PANELon 66-09-7355Kdmth gap [Moles/Vol]13 mmol/PUifemh81-78Zmr MetCleveland Clinic [facility] SystemComment on above:Performed By: #### CH8, MG, PHOS ####[facility] CXVXTNJXII2704 [place], [address]Hcntkhj [Mass/Vol]8.2 mg/dLLow8.6-10.3The [facility] SystemComment on above:Performed By: #### CH8, MG, PHOS ####[facility] PATH[facility] GPBOEYZFOT6767 [place], [address]Dtqbcstn [Moles/Vol]95 mmol/ZXih80-795Oyz [facility] SystemComment on above:Performed By: #### MG AMMON, PHOS ####[facility] PATH[facility] CIEDWNGSBY2428 [place], [address]WH6 [Moles/Vol]30 mmol/FXvixfv72-20Hjp [facility] SystemComment on above:Performed By: #### MG AMMON, PHOS ####[facility] PATH[facility]Y TTIEYHXAHY8094 [place], [address]Lhwkgssjfn [Mass/Vol] 0.49 mg/dLLow0.70-1.30The [facility] SystemComment on above:Performed By: #### MG AMMON, PHOS ####[facility] PUFLXBLOEN9424 [place], [address]NZPVQBOPW GFR (CKD-EPI)102 mL/min/1.73sqmNormal>=60The [facility] SystemComment on above:Result Comment: 2020 CKD EPI [...] Inclusion of Race in Diagnosing Kidney Disease. English Journal of Kidney Diseases 2021;79(2):268-88.e1.2. N Engl J Med 2020 Vol. 385 Issue 19 Pages 7305-2527Performed By: #### MG VERDE PHOS ####[facility] PATHOLOG[facility] IEDLTDGACJ0511 [place], [address]Yhasftr [Mass/Vol]87 mg/gLLfmfas17-876Yzd [facility] SystemComment on above:Performed By: #### MG AMMON, PHOS ####[facility] SYNWTVCDIP7197 [place], [address]Uvfakubai [Moles/Vol]3.2 mmol/LLow3.5-5.0The [facility] HospitalHealth SystemComment on above:Performed By: #### MG VERDE PHOS ####S PATHOLOGY WXZNMDZRHD9959 [place], [address]Bfcoay [Moles/Vol]135 mmol/DShr377-538Evi [facility] CampusroHealth SystemComment on above:Performed By: #### MG VERDE PHOS ####S PATHOLOGY HMYRCSLSVT8484 [place], [address]Exgb nitrogen [Mass/Vol]14 mg/dLNormal7-25The [facility] HospitalHealth SystemComment on above:Performed By: #### MG VERDE PHOS ####[facility] PATHOLOGY SWEHYNQOHU[address] [place] [address], [address]ROPFTNDW BLOOD COUNTon 57-85-0827Zymlctamyyu distribution width (RBC) [Ratio]17.6 %High 11.5-14.5The [facility] SystemComment on above:Performed By: #### CBC ####S PATHOLOGY BFQUHDPCYS1461 [place], [address]Bthpbffofe (Bld) [Volume fraction]31.4 %Low41.0-53.0The [facility] SystemComment on above: Performed By: #### CBC ####[facility] PATHOLOGY IUQXODCVAW9507 [place], [address]Fnepclyvbl (Bld) [Mass/Vol]10.5 g/dLLow13.9-16.3 The [facility] SystemComment on above:Performed By: #### CBC ####S PATHOLOGY TUZCHVSWDA3527 [place], [address]WOC (RBC) [Entitic mass]31.1 fdXqvcvt75.0-34.0The [facility] SystemComment on above:Performed By: #### CBC ####S PATHOLOGY KJYXOODNOY[address] [place] [address], [address]HQRB (RBC) [Mass/Vol]33.3 g/yKJcqzds14.0-35.9The [facility] Comment on above:Performed By: #### CBC ####S PATHOLOGY ABULDMPJEM1628 [place], [address]ZGF (RBC) [Entitic vol]94 fLNormal 80-100The [facility] HospitalHealth SystemComment on above:Performed By: #### CBC ####S PATHOLOGY EHIYZENKVX4399 [place], [address]Heexqmwb mean volume (Bld) [Entitic vol]7.2 fLLow7.5-11.2The [facility] CampusroHealth SystemComment on above:Performed By: #### CBC ####[facility] PATHOLOGY BGNUWTAUEB[address] [place] [address], [address]Zhoggahxz (Bld) [#/Vol]331 10*3/mGFhjgaj823-118Dew [facility] SystemComment on above:Performed By: #### CBC ####[facility] PATHOLOGY MPXXXQXFAH[address] [place] [address], [address]TJX (Bld) [#/Vol]3.36 10*6/uLLow4.50-5.90The [facility] HospitalHealth SystemComment on above:Performed By: #### CBC ####[facility] PATHOLOGY UODMDFNTDE[address] [place] [address], [address]PDP (Bld) [#/Vol]7.2 10*3/uLNormal4.5-11.5The [facility] SystemComment on above: Performed By: #### CBC ####[facility] PATHOLOGY XBLKEINBZF[address] [place] [address], [address]Njrjzkbcpi 46-95-5664Kqflyxfkvhlej Authentication Interface Message TextNormalThe [facility] SystemMAGNESIUMon 06-09-2024 Magnesium [Mass/Vol]1.6 mg/dLLow1.9-2.7The [facility] CampusroHealth SystemComment on above: Performed By: #### CH8, MG, PHOS ####S PATHOLOGY TOMTQZRUVF[address] [place] [address], [address]XJOEQNDHPHwh 65-85-8665Kwsxfrbfi [Mass/Vol]3.1 mg/dLNormal2.5-5.0The [facility] SystemComment on above:Performed By: #### CH8, MG, CHI ####[facility] PATH[facility] UZFIUJRSNV9024 [place], [place], [address]Progress Noteson 20-19-5495Jyvuxcrfjhtao Authentication Interface Message TextNoCone Health Wesley Long HospitalAngiodroid SystemTranscription Authentication Interface Message TextNoCone Health Wesley Long HospitalAngiodroid SystemXR CHEST AP OR PA 1 VIEWon 43-92-4231FY CHEST AP OR PA 1 VIEWNormalThSlyce [facility] HospitalAngiodroid SystemXR Chest Single viewon 25-91-9980WIBHBXTFSFR: XR CHEST AP OR PA 1 VIEW [...] follow up exam ORDERING PROVIDER: JOSE M LINDSAY TECHNNINOSKA NOTE: COMPARISON: XR CHEST AP OR [...] Chest Single viewOrdered By: Micah Lynne on 37-89-5418MybmdLmswbv Work Phone: bASIC METABOLIC PANELon 65-21-0315Ikqnt gap [Moles/Vol]11 mmol/JRrgpjw96-69Irt [facility] CampusroHealth SystemComment on above:Performed By: #### CH8, MG, PHOS ####[facility] PATH[facility] EFIAKIQNGF8354 [place], [address]Kmwseij [Mass/Vol]8.5 mg/dLLow8.6-10.3The [facility] CampusroHealth SystemComment on above:Performed By: #### CH8, MG, PHOS ####[facility] PATHOLOGY DEBPPFRZFY4948 [place], [address]Cnfhohzp [Moles/Vol]98 mmol/AMmbool04-959Lna [facility] SystemComment on above:Performed By: #### CH8, MG, PHOS ####[facility] PATH[facility] NVTQTUSBVG2349 [place], [address]VV3 [Moles/Vol]31 mmol/WJczvvf05-35Byg [facility] CampusroHealth SystemComment on above:Performed By: #### CH8, MG, PHOS ####[facility] PATH[facility] DUUEUNUSBY2080 [place], [address]Itvibhwplu [Mass/Vol] 0.44 mg/dLLow0.70-1.30The [facility] CampusroShelby Memorial Hospital SystemComment on above:Performed By: #### CH8, MG, PHOS ####[facility] PATHOLOGY RDTMXKFNDJ5938 [place], [address]FRKAITLZO GFR (CKD-EPI)105 mL/min/1.73sqmNormal>=60The [facility] SystemComment on above:Result Comment: 2020 CKD EPI [...] Inclusion of Race in Diagnosing Kidney Disease. English Journal of Kidney Diseases 2021;79(2):268-88.e1.2. N Engl J Med 1 Vol. 385 Issue 19 Pages 0541-9005Performed By: #### MG VERDE PHOS ####[facility] PATHOLOG[facility] RVCRNSSEGU8825 [place], [address]Reaihew [Mass/Vol]104 mg/zJSmpfhx58-624Tcm [facility] CampusroHealth SystemComment on above:Performed By: #### MG AMMON PHOS ####[facility] PATHOLOGY OYMZVUDNLK6053 [place], [address]Ulaiexjxz [Moles/Vol]3.2 mmol/LLow3.5-5.0The [facility] CampusroHealth SystemComment on above:Performed By: #### MG AMMON PHOS ####[facility] PATHOLOGY PMGNYHJUEK4685 [place], [address]Tizsrq [Moles/Vol]137 mmol/ELdhgqz864-370Hwe [facility] CampusroHealth SystemComment on above: Performed By: #### MG AMMON PHOS ####[facility] PATHOLOGY YALTIVSEWR8888 [place], [address]Znnw nitrogen [Mass/Vol]16 mg/dLNormal7-25The [facility] CampusroHealth SystemComment on above:Performed By: #### MG AMMON PHOS ####[facility] PATH[facility]Y YHDKBZDELU1869 [place], [address]AJOMPOBD BLOOD COUNTon 02-78-8267Lflsugjvkpm distribution width (RBC) [Ratio]17.1 %High 11.5-14.5The [facility] CampusroHealth SystemComment on above:Performed By: #### CBC ####[facility] PATHOLOGY RCQZUWADWV5509 [place], [address]Skqbrlvfhv (Bld) [Volume fraction]30.1 %Low41.0-53.0The [facility] CampusroHealth SystemComment on above: Performed By: #### CBC ####[facility] PATHOLOGY TKCKJLIIGY4670 [place], [address]Yyuxjgvnzy (Bld) [Mass/Vol]9.9 g/dLLow13.9-16.3The [facility] CampusroHealth SystemComment on above:Performed By: #### CBC ####[facility] PATHOLOGY UMIJLHSUGL[address] [place] [address], [address]MBJ (RBC) [Entitic mass]30.6 ewWwyhpg43.0-34.0The [facility] HospitalHealth SystemComment on above:Performed By: #### CBC ####[facility] PATHOLOGY IFYYSONGKN[address] [place] [address], [address]MEOS (RBC) [Mass/Vol]33.0 g/oQLgukud16.0-35.9The [facility] Comment on above:Performed By: #### CBC ####[facility] PATHOLOGY TINMNDSFWG[address] [place] [address], [address]KRC (RBC) [Entitic vol]93 fLNormal 80-100The [facility] HospitalHealth SystemComment on above:Performed By: #### CBC ####[facility] PATHOLOGY QPNLEAVVUU[address] [place] [address], [address]Eselmbtd mean volume (Bld) [Entitic vol]7.0 fLLow7.5-11.2The [facility] HospitalHealth SystemComment on above:Performed By: #### CBC ####[facility] PATHOLOGY USHANAAHAB[address] [place] [address], [address]Vscrjhosw (Bld) [#/Vol]370 10*3/iDVwgrmt299-141Kyc [facility] SystemComment on above:Performed By: #### CBC ####[facility] PATHOLOGY BADSQRAQPQ9[address] [place] [address], [address]RZC (Bld) [#/Vol]3.24 10*6/uLLow4.50-5.90The [facility] SystemComment on above:Performed By: #### CBC ####[facility] PATHOLOGY PMLKDUPSCH7[address] [place] [address], [address]LXN (Bld) [#/Vol]5.8 10*3/uLNormal4.5-11.5The [facility] SystemComment on above: Performed By: #### CBC ####[facility] PATH[facility] JITGZTBMEW0978 [place], [address]Faeorcyrry 22-44-6051Snnhjwoggiwmg Authentication Interface Message TextNormSycamore Medical Center SystemTranscription Authentication Interface Message TextNormChesapeake Regional Medical CenterroShelby Memorial Hospital SystemMAGNESIUMon 06-08-2024 Magnesium [Mass/Vol]1.9 mg/dLNormal1.9-2.7The [facility] SystemComment on above:Performed By: #### CH8, MG, PHOS ####[facility] PATH[facility] MGQEUJIQLL9397 [place], [address]HIHMXGGQTPyq 42-57-5109Kmzqxeyqn [Mass/Vol]2.5 mg/dLNormal2.5-5.0The [facility] SystemComment on above:Performed By: #### CH8, MG, PHOS ####[facility] PATH[facility] TWVKUXTGPC4006 [place], [address]Bgva-Xnjqeuxpp Noteon 73-04-0538Lvdtzeusbzrzx Authentication Interface Message TextNormChesapeake Regional Medical CenterroShelby Memorial Hospital SystemPre-Procedure Noteon 84-65-6359Htqrrizilfcmg Authentication Interface Message TextNormSycamore Medical Center SystemProgress Noteson 51-29-6391Lwujnauqpnluh Authentication Interface Message TextNormSycamore Medical Center SystemTranscription Authentication Interface Message TextNormChesapeake Regional Medical CenterroHealth SystemXR CHEST AP OR PA 1 VIEWon 61-50-5263NH CHEST AP OR PA 1 VIEWNormalThe [facility] CampusroHealth SystemXR CHEST AP OR PA 1 VIEWNormThe University of [facility] Medical Centere [facility] SystemXR Chest Single viewon 08-64-9967HFMCNSQQZRF: XR CHEST AP OR PA 1 VIEW [...] Chest Single viewOrdered By: Micah Lynne on 72-06-3583CbhxaZuqhfu Work Phone: bASIC METABOLIC PANELon 97-34-6227Jgujp gap [Moles/Vol]14 mmol/JIbdcdt52-75Utd [facility] SystemComment on above:Performed By: #### AMMON PRADO, PHOS ####[facility] PATH[facility] TJDBHUAYSE8820 [place], [address]Vlojtdt [Mass/Vol]8.1 mg/dLLow8.6-10.3The [facility] CampusroHealth SystemComment on above:Performed By: #### AMMON PRADO, PHOS ####[facility] PATHOLOGY FDDOHAIFPV0280 [place], [address]Mhdsfcyd [Moles/Vol]102 mmol/MIeelmc70-180Evn [facility] CampusroHealth SystemComment on above: Performed By: #### MGAMMON, PHOS ####[facility] PATHOLOGY GIAYBKNGLV1731 [place], [address]LJ9 [Moles/Vol]29 mmol/KOucjyf09-44Axu [facility] SystemComment on above:Performed By: #### AMMON PRADO, PHOS ####[facility] PATHOLOGY GQKCPAVGFX9681 [place], [address]Vhebwrfnaq [Mass/Vol] 0.55 mg/dLLow0.70-1.30[facility] Campusro[facility] SystemComment on above:Performed By: #### AMMON PRADO, PHOS ####[facility] [id number] [place], [address]JIOOOFEXL GFR (CKD-EPI)98 mL/min/1.73sqmNormal>=60The [facility] SystemComment on above:Result Comment: 2020 CKD EPI [...] Inclusion of Race in Diagnosing Kidney Disease. English Journal of Kidney Diseases 2021;79(2):268-88.e1.2. N Engl J Med 2020 Vol. 385 Issue 19 Pages 5233-4599Performed By: #### AMMON PRADO, PHOS ####[facility] [id number] [place], [address]Qitypcr [Mass/Vol]84 mg/yBRaysze59-295Dno [facility] Campusro[facility] SystemComment on above:Performed By: #### AMMON PRADO PHOS ####S PATHOLOGY [id number] [place], [address]Gudhviima [Moles/Vol]3.5 mmol/LNormal3.5-5.0[facility] Campusro[facility] SystemComment on above:Performed By: #### AMMON PRADO PHOS ####[facility] PATHOLOGY [id number] [place], [address]Mlyvgb [Moles/Vol]141 mmol/JTodueb549-836Ulu [facility] Campusro[facility] SystemComment on above: Performed By: #### AMMON PRADO PHOS ####[facility] PATHOLOGY [id number] [place], [address]Mims nitrogen [Mass/Vol]13 mg/dLNormal7-25[facility] CampusroHealth SystemComment on above:Performed By: #### AMMON PRADO PHOS ####[facility] PATHOLOGY IWPDZPCPRQ[address] [place] [address], [address]PMOWPDBZ BLOOD COUNTon 63-80-4783Waqjczaowcv distribution width (RBC) [Ratio]17.3 %High 11.5-14.5The [facility] HospitalHealth SystemComment on above:Performed By: #### CBC ####[facility] PATHOLOGY IVFRFPBISN1924 [place], [address]Yyhhuyilgm (Bld) [Volume fraction]28.2 %Low41.0-53.0The [facility] HospitalHealth SystemComment on above: Performed By: #### CBC ####S PATHOLOGY KATUGURBVS0139 [place], [address]Nxfowpongw (Bld) [Mass/Vol]9.7 g/dLLow13.9-16.3The [facility] HospitalHealth SystemComment on above:Performed By: #### CBC ####[facility] PATHOLOGY JQJKXUFGJR6614 [place], [address]NNZ (RBC) [Entitic mass]32.0 crDwxrsq71.0-34.0The [facility] CampusroHealth SystemComment on above:Performed By: #### CBC ####[facility] PATHOLOGY PBZVOFNZJU[address] [place] [address], [address]HNSV (RBC) [Mass/Vol]34.3 g/wFQlflzr49.0-35.9The [facility] Comment on above:Performed By: #### CBC ####[facility] PATHOLOGY MBEHSJHCQL[address] [place] [address], [address]RAB (RBC) [Entitic vol]93 fLNormal 80-100The [facility] CampusroHealth SystemComment on above:Performed By: #### CBC ####[facility] PATHOLOGY MIESGXPORC[address] [place] [address], [address]Iloeaygp mean volume (Bld) [Entitic vol]7.3 fLLow7.5-11.2The [facility] HospitalHealth SystemComment on above:Performed By: #### CBC ####[facility] PATHOLOGY WWMVYUUHZQ[address] [place] [address], [address]Kpftitxdh (Bld) [#/Vol]367 10*3/gVDouvkr964-280Ddt [facility] HospitalHealth SystemComment on above:Performed By: #### CBC ####[facility] PATHOLOGY FVLUKBQQWO9[address] [place] [address], [address]BXN (Bld) [#/Vol]3.03 10*6/uLLow4.50-5.90The [facility] HospitalHealth SystemComment on above:Performed By: #### CBC ####[facility] PATHOLOGY CAUHWMBRBS[address] [place] [address], [address]MVM (Bld) [#/Vol]6.7 10*3/uLNormal4.5-11.5The [facility] HospitalHealth SystemComment on above: Performed By: #### CBC ####[facility] PATHOLOGY UTKQLCHYIM[address] [place] [address], [address]CUJKGSTDOdz 84-53-1355Doqdjcfpr [Mass/Vol]2.1 mg/dLNormal1.9-2.7The [facility] HospitalHealth SystemComment on above:Performed By: #### MG, CH8, PHOS ####[facility] PATHOLOGY VAWPVLGOVU[address] [place] [address], [place], [address]PHOSPHORUSon 68-34-3216Ygkozwnyh [Mass/Vol]2.9 mg/dLNormal2.5-5.0The [facility] SystemComment on above:Performed By: #### MG, CH8, PHOS ####[facility] VYROFLWWPT0279 [place], [address]DMFIBCUTTND TIME AND INRon 39-44-0453OEK Coag (PPP) [Relative time]1.07 {INR}Normal0.90-1.10 The [facility] SystemComment on above:Performed By: #### PT ####[facility] PATH[facility]Y BOLTAEBGGH6282 [place], [address]HJ Coag (PPP) [Time] 12.0 sNormal9.7-12.9The [facility] SystemComment on above:Performed By: #### PT ####[facility] PATHOLOGY XFQPDHXVOD3642 [place], [place], [place] Noteson 96-06-6434Jvvmzgpsiovsv Authentication Interface Message Text NormalThe [facility] SystemTranscription Authentication Interface Message Text NormalThe [facility] SystemUS Cheston 54-22-0058BDHJFHXWUDL: US CHEST PLEURAL CAVITY 06/06/2024 11:17 PM [...] lung. IMPRESSION: Bilateral pleural effusions. MACRO: None RADIOLOGYMiRanda vazquez MD - 06/07/2024 EXAMINATION: US CHEST PLEURAL [...] None [facility]US ChestOrdered By: Randa Portillo on 98-84-2957KolsfUubije Work Phone: US PLEURAL EFFUSIONon 10-26-1201EV PLEURAL EFFUSION NormalThe [facility] CampusNinite System1:1 Interactionon 23-28-7765Damkpnzqtgkqj Authentication Interface Message TextNormalThe [facility] HospitalAngiodroid SystemBASIC METABOLIC PANELon 85-15-4593Vdgjl gap [Moles/Vol]12 mmol/VIncblr64-41Hsl [facility] SystemComment on above:Performed By: #### PHOS, MG, CH8 ####[facility] PATH[facility]Y FRFXTWWSQO6044 [place], [address]Zirkltq [Mass/Vol]8.1 mg/dLLow8.6-10.3The [facility] SystemComment on above:Performed By: #### PHOS, MG, CH8 ####[facility] PATH[facility]Y PNMFBVCFAG6620 [place], [place], [address]Chloride [Moles/Vol]103 mmol/EQbencn42-063Atu [facility] SystemComment on above:Performed By: #### PHOS, MG, CH8 ####[facility] PATH[facility]Y TJFORJXTYD1386 [place], [address]LN7 [Moles/Vol]31 mmol/DZerxpf75-33Iui [facility] SystemComment on above:Performed By: #### PHOS, MG, CH8 ####[facility] PATHOLOGY JNYYOZNZLR7217 [place], [address]Oyqtngwshr [Mass/Vol]0.51 mg/dLLow0.70-1.30The [facility] SystemComment on above:Performed By: #### PHOS, MG, CH8 ####[facility] PATHOLOGY VGICLOVBYS7046 [place], [address]TKIMNIVHV GFR (CKD-EPI)101 mL/min/1.73sqmNormal >=60The [facility] HospitalHealth SystemComment on above:Result Comment: 2020 CKD EPI [...] Inclusion of Race in Diagnosing Kidney Disease. English Journal of Kidney Diseases 2021;79(2):26 8-88.e1.2. N Engl J Med 2020 Vol. 385 Issue 19 Pages 4413-8521Performed By: #### MG MIRELES CH8 ####[facility] PATHOLOGY UHXWYOKDSA1917 [place], [address]Dhykpfp [Mass/Vol]84 mg/uSWraevt10-819Avz [facility] SystemComment on above:Performed By: #### MG MIRELES CH8 ####[facility] PATH[facility]Y HDWMLXTLKS7308 [place], [address]Retylhnio [Moles/Vol]3.1 mmol/LLow 3.5-5.0The [facility] SystemComment on above:Performed By: ###MG GAGE CH8 ####[facility] PATH[facility]Y IBUGMRNWBF9314 [place], Sodium [Moles/Vol]143 mmol/IHnpbxe585-830Iia [facility] SystemComment on above: Performed By: #### MG MIRELES CH8 ####[facility] PATHOLOGY TNAJMRSOQI5590 [place], [address]Nzmo nitrogen [Mass/Vol]10 mg/dLNormal7-25The [facility] HospitalHealth SystemComment on above:Performed By: ###MG GAGE CH8 ####[facility] PATH[facility]Y GPFFCOUDSV4725 [place], [address]HAMUWSAS BLOOD COUNTon 36-87-8213Pmnsgcrpvog distribution width (RBC) [Ratio]17.5 %High 11.5-14.5The [facility] HospitalHealth SystemComment on above:Performed By: #### CBC ####[facility] PATHOLOGY PDKXMBEEBK6764 [place], [address]Iiqareyuui (Bld) [Volume fraction]30.7 %Low41.0-53.0The [facility] SystemComment on above: Performed By: #### CBC ####[facility] PATHOLOGY EZPRKDUZHB6119 [place], [address]Anfwthxfin (Bld) [Mass/Vol]10.3 g/dLLow13.9-16.3 The [facility] CampusroHealth SystemComment on above:Performed By: #### CBC ####[facility] PATHOLOGY ZYNSDHMAWC9529 [place], [address]KST (RBC) [Entitic mass]31.3 mlWsncyf67.0-34.0The [facility] SystemComment on above:Performed By: #### CBC ####[facility] PATHOLOGY BFGMKBKKXA[address] [place] [address], [address]BGFK (RBC) [Mass/Vol]33.4 g/qGGfcnzk73.0-35.9The [facility] Comment on above:Performed By: #### CBC ####[facility] PATHOLOGY OGUUKXPCGL4[address] [place] [address], [address]EEE (RBC) [Entitic vol]94 fLNormal 80-100The [facility] SystemComment on above:Performed By: #### CBC ####[facility] PATHOLOGY WKZNPCOCUB5[address] [place] [address], [address]Lufijctf mean volume (Bld) [Entitic vol]6.8 fLLow7.5-11.2The [facility] SystemComment on above:Performed By: #### CBC ####[facility] PATHOLOGY LFITFVNRNO[address] [place] [address], [address]Lmydyeasv (Bld) [#/Vol]391 10*3/qBPfdctp227-164Lfm [facility] SystemComment on above:Performed By: #### CBC ####[facility] PATHOLOGY MGLUOEBMPD7[address] [place] [address], [address]IUJ (Bld) [#/Vol]3.28 10*6/uLLow4.50-5.90The [facility] SystemComment on above:Performed By: #### CBC ####[facility] PATH[facility]Y WHFONOBRDK[address] [place] [address], [address]HTM (Bld) [#/Vol]6.3 10*3/uLNormal4.5-11.5The [facility] SystemComment on above: Performed By: #### CBC ####[facility] PATH[facility]Y KKBRSBCPEC[address] [place] [address], [address]QX CHEST/ABD/PELVIS W/ CONTRASTon 82-01-0454RY CHEST/ABD/PELVIS W/ CONTRASTNormalThe [facility] SystemMAGNESIUMon 06-06-2024 Magnesium [Mass/Vol]1.8 mg/dLLow1.9-2.7The [facility] SystemComment on above: Performed By: #### PHOAlfonzo MG, CH8 ####[facility] PATHOLOGY KJBVSUXHXI07[address] [place] [address], [address]ORGRUAYMQFew 31-49-9088Dcbuadmgk [Mass/Vol]2.4 mg/dLLow2.5-5.0The [facility] SystemComment on above:Performed By: #### PHOAlfonzo MG, CH8 ####[facility] PATH[facility]Y CPDPWTSQIO[address] [place] [address], [address]Progress Noteson 35-95-1177Gqrwqitqabozg Authentication Interface Message TextNoMet[facility] SystemUS Cheston 31-30-4203Udvrlahna Study observation (narrative)[facility]1:1 Interactionon 58-38-4551Elfvqggxxnsyo Authentication Interface Message TextSt. [facility] SystemBASIC METABOLIC PANELon 86-02-4281Cgqbv gap [Moles/Vol]9 mmol/VAoo56-69Mgs [facility] Comment on above:Performed By: #### PHOS, MG, CH8 ####[facility] PATH[facility]Y VDELWYTXJS[address] [place] [address], [address]Sxnquce [Mass/Vol]8.3 mg/dLLow8.6-10.3The [facility] SystemComment on above:Performed By: #### PHOS, MG, CH8 ####[facility] PATH[facility]Y WIZSARGQFZ7108 [place], [place], [address]Chloride [Moles/Vol]109 mmol/XOoaa05-373Aua [facility] SystemComment on above:Performed By: #### MG CHI, LLOYD8 ####[facility] PATHOLOGY MGLRYPQEXX7853 [place], [address]RH2 [Moles/Vol]26 mmol/LFzkocq85-62Bgd [facility] CampusroHealth SystemComment on above:Performed By: #### MG CHI, LLOYD8 ####S PATHOLOGY PEFFSSSKZY2363 [place], [address]Qghzqlohor [Mass/Vol]0.51 mg/dLLow0.70-1.30The [facility] SystemComment on above:Performed By: #### MG CHI, LLOYD8 ####S PATHOLOGY ANNRQDWWNN4050 [place], [address]BUCSKKDWH GFR (CKD-EPI)101 mL/min/1.73sqmNormal >=60The [facility] SystemComment on above:Result Comment: 2020 CKD EPI [...] Inclusion of Race in Diagnosing Kidney Disease. English Journal of Kidney Diseases 2021;79(2):26 8-88.e1.2. N Engl J Med 2020 Vol. 385 Issue 19 Pages 5678-4358Performed By: #### MG CHI, CH8 ####[facility] PATHOLOGY LRMGWFVMQC1725 [place], [address]Hwyxuzz [Mass/Vol]91 mg/qCMcxazt10-996Pyh [facility] SystemComment on above:Performed By: #### MG CHI, CH8 ####S PATHOLOGY HTVHDRIIBL4685 [place], [address]Ldboqjffn [Moles/Vol]3.1 mmol/LLow 3.5-5.0The [facility] Hospital[facility] SystemComment on above:Performed By: #### PHOAlfonzo MG, CH8 ####S PATHOLOGY KLNTJFPFKJ5885 [place], Sodium [Moles/Vol]141 mmol/CVxjubm413-432Yuq [facility] Hospital[facility] SystemComment on above: Performed By: #### PHOS MG, CH8 ####S PATHOLOGY WRCWUIQOJQ7825 [place], [address]Xvut nitrogen [Mass/Vol]12 mg/dLNormal7-25The [facility] HospitalHealth SystemComment on above:Performed By: #### CHI MG, CH8 ####[facility] PATHOLOGY UZCRDJKDXC[address] [place] [address], [address]KNMFMCKK BLOOD COUNTon 57-36-4001Dwmpkwsstku distribution width (RBC) [Ratio]17.7 %High 11.5-14.5The [facility] HospitalHealth SystemComment on above:Performed By: #### CBC ####[facility] PATHOLOGY RNFHKGARHA59[address] [place] [address], [address]Gkdyefphnc (Bld) [Volume fraction]30.6 %Low41.0-53.0The [facility] SystemComment on above: Performed By: #### CBC ####[facility] PATHOLOGY GOPLERVJZW9213 [place], [address]Tjzkysqnjw (Bld) [Mass/Vol]10.2 g/dLLow13.9-16.3 The [facility] SystemComment on above:Performed By: #### CBC ####S PATHOLOGY ADAIUUVYWI5161 [place], [address]ZYC (RBC) [Entitic mass]31.4 cwAjrayd73.0-34.0The [facility] HospitalHealth SystemComment on above:Performed By: #### CBC ####S PATHOLOGY QBYFHHQCHB1597 [place], [address]APVA (RBC) [Mass/Vol]33.4 g/mQHrsroc51.0-35.9The [facility] Comment on above:Performed By: #### CBC ####[facility] PATH[facility]Y XVQNHJDFIX3817[address] [place] [address], [address]NEB (RBC) [Entitic vol]94 fLNormal 80-100The [facility] CampusroHealth SystemComment on above:Performed By: #### CBC ####[facility] PATHOLOGY KOZFSFJWWT8[address] [place] [address], [address]Aucidixq mean volume (Bld) [Entitic vol]6.7 fLLow7.5-11.2The [facility] SystemComment on above:Performed By: #### CBC ####[facility] PATHOLOGY YGEIRNTYKM0127[address] [place] [address], [address]Gwweebscr (Bld) [#/Vol]427 10*3/yNQzwv498-100Wlf [facility] SystemComment on above:Performed By: #### CBC ####[facility] PATHOLOGY QKVZHKCVOB4964[address] [place] [address], [address]DWU (Bld) [#/Vol]3.27 10*6/uLLow4.50-5.90The [facility] SystemComment on above:Performed By: #### CBC ####[facility] PATHOLOGY EBGDPOFIQY[address] [place] [address], [address]YZL (Bld) [#/Vol]5.7 10*3/uLNormal4.5-11.5The [facility] CampusroHealth SystemComment on above: Performed By: #### CBC ####[facility] PATHOLOGY XHRIRVMZDR27[address] [place] [address], [address]WIFECEFJWwc 86-11-0096Gqipbnbqw [Mass/Vol]1.9 mg/dLNormal1.9-2.7The [facility] SystemComment on above:Performed By: #### PHOS, MG, CH8 ####[facility] PATHOLOGY QMXIWWDOIC[address] [place] [address], [address]XBVVIICQGZka 29-27-6175Zliepjptm [Mass/Vol]2.5 mg/dLNormal2.5-5.0The [facility] CampusroHealth SystemComment on above:Performed By: #### PHOS, MG, CH8 ####[facility] PATHOLOGY DWVGQTXKQC1380[address] [place] [address], [address]Bjtxeymt Noteson 46-30-5804Wfxirkstcrdnl Authentication Interface Message TextNormalThe [facility] SystemTranscription Authentication Interface Message TextNormalThe [facility] CampusroHealth SystemTranscription Authentication Interface Message TextNormalThe [facility] CampusroHealth SystemXR ABDOMEN AP 1 VIEWon 23-68-2623LP ABDOMEN AP 1 VIEWNormalThe [facility] SystemXR CHEST AP OR PA 1 VIEWon 18-55-5950GH CHEST AP OR PA 1 VIEW NormalThe [facility] SystemXR Chest Single viewon 34-41-1836CRQXHCFJXHS: XR CHEST AP OR PA 1 VIEW [...] thoracic trachea. Otherwise, unchanged pulmonary findings, asdetailed RADIOLOGYVignesh Higeura MD - 06/05/2024 EXAMINATION: XR CHEST AP [...] Chest Single viewOrdered By: Vignesh Higuera on 79-02-4188JjbubWweluk Work Phone: [phone] Interactionon 27-52-6937Fhhgaqdtjphit Authentication Interface Message TextNormalThe [facility] CampusroHealth SystemAnesthesia Postprocedure Evaluationon 14-05-2994Gkwnbywkuszhr Authentication Interface Message TextNormalThe [facility] SystemAnesthesia Preprocedure Evaluationon 84-36-9123Qrwkhqfqouoqp Authentication Interface Message TextNormThe [facility] Centere [facility] CampusroHealth SystemAnesthesia Transfer Of Careon 30-35-7925Qxpoxxvqbiodv Authentication Interface Message TextNormThe [facility] Centere [facility] CampusroAngiodroid SystemBASIC METABOLIC PANELon 72-51-4340Tsyme gap [Moles/Vol]11 mmol/GPxgmzx62-22Eaa [facility] SystemComment on above:Performed By: #### CH8, PHOS, MG ####[facility] KXRKTOISQC3249 [place], [address]Dtjqtfd [Mass/Vol]7.7 mg/dLLow8.6-10.3The [facility] SystemComment on above:Performed By: #### AMMON, PHOS, MG ####[facility] PATH[facility] CMQECKAURV0661 [place], [place], [address]Chloride [Moles/Vol]108 mmol/NFqhh96-995Ymw [facility] SystemComment on above:Performed By: #### CHIvis, PHOS, MG ####[facility] PATH[facility]Y YBIXAWNJRG8657 [place], [address]WS2 [Moles/Vol]23 mmol/AIfdosj43-16Jee [facility] SystemComment on above:Performed By: #### CHIvis, PHOS, MG ####[facility] PATH[facility]Y YFSGFTNLXT8289 [place], [address]Pcchuvokfy [Mass/Vol]0.54 mg/dLLow0.70-1.30The [facility] SystemComment on above:Performed By: #### CH8, PHOS, MG ####[facility] PATH[facility]Y AMMBKYLDOT0448 [place], [address]BWOAEMQGI GFR (CKD-EPI)99 mL/min/1.73sqmNormal>=60 The [facility] SystemComment on above:Result Comment: 2020 CKD EPI [...] Inclusion of Race in Diagnosing Kidney Disease. English Journal of Kidney Diseases 2021;79(2):26 8-88.e1.2. N Engl J Med 1 Vol. 385 Issue 19 Pages 5540-1820Performed By: #### AMMON PHOAlfonoz MG ####[facility] PATHOLOGY OBISRSCJJD0942 [place], [address]Jawjqdt [Mass/Vol]87 mg/vEIifpps07-469Gcd [facility] SystemComment on above:Performed By: #### AMMON PHOS MG ####[facility] PATH[facility]Y VNZEZSKMGD8036 [place], [address]Gnbkvluzm [Moles/Vol]3.2 mmol/LLow 3.5-5.0The [facility] SystemComment on above:Performed By: #### AMMON PHOS, MG ####S PATHOLOGY HZRCPJOYYB5897 [place], Sodium [Moles/Vol]139 mmol/FGhiilp861-585Vtb [facility] SystemComment on above: Performed By: #### AMMON PHOS, MG ####[facility] PATHOLOGY IFBCENVJDR1634 [place], [address]Fljg nitrogen [Mass/Vol]17 mg/dLNormal7-25The [facility] SystemComment on above:Performed By: #### AMMON PHOS, MG ####[facility] PATH[facility]Y VCOYFSPMEK9723 [place], [address]GKZIQ GAS, ARTERIALon 53-34-7470BK ABE0.3 mmol/LNormal-2.0-3.0The [facility] CampusroHealth SystemComment on above:Performed By: #### CR BGA ####[facility] PATHOLOGY TASWDZTRZM[address] [place] [address], [address]NV VRB546.7 mm HgLow35.0-45.0The [facility] CampusroHealth SystemComment on above:Performed By: #### CR BGA ####[facility] PATHOLOGY FQACZSAGGT4[address] [place] [address], [address]IS PHA7.466High 7.350-7.450The [facility] CampusroHealth SystemComment on above:Performed By: #### CR BGA ####[facility] PATHOLOGY FPYUKVEMTB05[address] [place] [address], [address]OR ZW1599 mm HtSlix75-079Ygv [facility] CampusroHealth SystemComment on above:Performed By: #### CR BGA ####[facility] PATHOLOGY WKFZQYTCPL7[address] [place] [address], [address]QBD8 (CATEGORY)35%NormalThe [facility] SystemComment on above: Performed By: #### CR BGA ####[facility] PATHOLOGY LWPQKTODTG6456[address] [place] [address], [address]BNG7 (Bld) [Moles/Vol]23 mmol/MJzpubo70-21Wvn [facility]Health SystemComment on above:Performed By: #### CR BGA ####[facility] PATHOLOGY NNLEMPPLFW5905[address] [place] [address], [address]IHBDSkwvUzrkiuIpt [facility] SystemComment on above:Performed By: #### CR BGA ####[facility] PATHOLOGY RFYGZTQMFL6840[address] [place] [address], [address]Vcgsic saturation in Blood99.0 %Wwzpsf71.0-99.0The [facility] HospitalHealth SystemComment on above:Performed By: #### CR BGA ####[facility] PATHOLOGY MFMHMMMYSV35[address] [place] [address], [address]Gnndw Attestationon 33-71-1561Ewxqrrwuukxox Authentication Interface Message TextNoMet[facility]Health [facility] Center SystemCOMPLETE BLOOD COUNTon 06-04-2024 Erythrocyte distribution width (RBC) [Ratio]17.4 %High11.5-14.5The [facility] CampusroHealth SystemComment on above:Performed By: #### CBC ####[facility] PATHOLOGY GWPEXWPAEI6[address] [place] [address], [address]Vcaninmogc (Bld) [Volume fraction]27.7 %Low41.0-53.0The [facility] CampusroHealth SystemComment on above:Performed By: #### CBC ####[facility] PATHOLOGY TZGERBAXRK74[address] [place] [address], Hemoglobin (Bld) [Mass/Vol]9.1 g/dLLow13.9-16.3The [facility] CampusroHealth SystemComment on above:Performed By: #### CBC ####[facility] PATHOLOGY HTVANHICPE8712[address] [place] [address], [address]BME (RBC) [Entitic mass]30.7 yqFgfbbx06.0-34.0The [facility] HospitalHealth SystemComment on above:Performed By: #### CBC ####[facility] PATHOLOGY RWWRABJZUX68[address] [place] [address], [address]ZXPI (RBC) [Mass/Vol] 32.9 g/kPHewtvp21.0-35.9The [facility] CampusroHealth SystemComment on above:Performed By: #### CBC ####[facility] PATHOLOGY NJUGDMWYNG4928[address] [place] [address], [address]TVS (RBC) [Entitic vol]93 aSXlofsq31-489Mvd [facility] CampusroHealth SystemComment on above:Performed By: #### CBC ####[facility] PATHOLOGY NOPNRSZSDK3587[address] [place] [address], [address]Rsnamfcl mean volume (Bld) [Entitic vol]6.8 fLLow 7.5-11.2The [facility] HospitalHealth SystemComment on above:Performed By: #### CBC ####[facility] PATHOLOGY JASLNJBULY88[address] [place] [address], [address]Qkkejbgkz (Bld) [#/Vol]398 10*3/fXIpzoxs012-498Qag [facility] CampusroHealth SystemComment on above: Performed By: #### CBC ####[facility] PATHOLOGY CMUHGFENRR8798[address] [place] [address], [address]JPL (Bld) [#/Vol]2.97 10*6/uLLow4.50-5.90The [facility] SystemComment on above:Performed By: #### CBC ####[facility] GARVHFGVXF[address] [place] [address], [address]WRL (Bld) [#/Vol]6.0 10*3/uLNormal4.5-11.5The [facility] SystemComment on above:Performed By: #### CBC ####[facility]Y ACFXZYVFCI96[address] [place] [address], MAGNESIUMon 31-74-9111Quxodvvqz [Mass/Vol]2.0 mg/dLNormal1.9-2.7The [facility] SystemComment on above:Performed By: #### AMMON, PHOS, MG ####[facility] [id number] [place] [address], [id number] Noteon 06-04-2024 General Contractor Authentication Interface Message TextNormalThe [facility] [place] Nursingon [id number] Authentication Interface Message Text11:27 Hand-off report called to Jena Toure RN on .NormalThe [facility] SystemPHOSPHORUSon 06-39-2031Fbbrijglk [Mass/Vol]4.4 mg/dLNormal2.5-5.0The [facility] SystemComment on above:Performed By: #### K, PHOS ####[facility] [id number] [place] [address], [id number] [Mass/Vol]1.7 mg/dLLow2.5-5.0The [facility] SystemComment on above:Performed By: #### CH8, PHOS, MG ####[facility] [id number] [place] [address], POTASSIUMon [phone] [Moles/Vol]3.7 mmol/LNormal3.5-5.0The [facility] Campus[facility] SystemComment on above:Performed By: #### K, PHOS ####[facility] [id number] [place] [address], [id number] Noteson 41-93-3012Edgzwgsnyshnc Authentication Interface Message TextSocial Work ICU Note Attempted to reach pt's Ilana Michelle at [phone] to discuss LTACH planning. No answer. SW will follow-up as able. Katie Puri [facility] [place]ONG[place]usy, LISWNoIHS Holding SystemTranscription Authentication Interface Message TextNormHireology SystemXR CHEST AP OR PA 1 VIEWon 39-80-8584KQ CHEST AP OR PA 1 VIEWNormHireology SystemXR Chest Single viewon 77-40-4640QTVWLFHFCIV: XR CHEST AP OR PA 1 VIEW [...] Endotracheal tube assessment ORDERING PROVIDER: VALERY REYNA TECHNNINOSKA NOTE: COMPARISON: XR CHEST AP OR [...] Chest Single viewOrdered By: Trevin Laurent on 93-43-0689OxwqdRitsoy Work Phone: [phone] Interactionon 11-29-7065Cafnxwwqitome Authentication Interface Message TextNormalThe [facility] HospitalAngiodroid SystemBASIC METABOLIC PANELon 51-68-0211Krpvs gap [Moles/Vol]9 mmol/YXbn54-38Vif [facility] Comment on above:Performed By: #### AMMON MG PHOS ####[facility] HZGVQDSWLA4573 [place], [address]Knpuclb [Mass/Vol]7.9 mg/dLLow8.6-10.3The [facility] SystemComment on above:Performed By: #### AMMON MG, PHOS ####[facility] MDAZTGWOPN5299 [place], [place], [address]Chloride [Moles/Vol]104 mmol/FHtgryk68-945Kdj [facility] SystemComment on above:Performed By: #### CHIvis MG, PHOS ####[facility] EVFDDLNKLX6746 [place], [address]LZ7 [Moles/Vol]27 mmol/GOftyuh50-10Znp [facility] SystemComment on above:Performed By: #### CH8 MG, PHOS ####[facility] URHEPRTEMM5185 [place], [address]Rldbccfhht [Mass/Vol]0.73 mg/dLNormal0.70-1.30The [facility] SystemComment on above: Performed By: #### CH8 MG, PHOS ####[facility] HBXITKEYIR7863 [place], [address]JGUPGOBFV GFR (CKD-EPI)90 mL/min/1.73sqmNormal>=60 The [facility] SystemComment on above:Result Comment: 2020 CKD EPI Equation using Creatinine without RaceComment: Estimated glomerular filtration rate (eGFR) is calculated without a race coefficient. Values should be interpreted in the context of the patient's full clinical presentation.Reference:1. Rishi Jose, Jorge M, Nic DC, et al.. A Unifying Approach for GFR Estimation: Recommendations of the NKF-ASN Task Force on Reassessing the Inclusion of Race in Diagnosing Kidney Disease. English Journal of Kidney Diseases 202;79(2):26 8-88.e1.2. N Engl J Med 2020 Vol. 385 Issue 19 Pages 8255-0438Performed By: #### MG EVRDE PHOS ####[facility] PSBHJRGLZL1232 [place], [address]Bwxpmuo [Mass/Vol]99 mg/nZQxvqdh21-272Mkp [facility] SystemComment on above:Performed By: #### MG VERDE PHOS ####[facility] CCCAQFALFK4232 [place], [address]Tamygovra [Moles/Vol]3.3 mmol/LLow 3.5-5.0The [facility] SystemComment on above:Performed By: #### MG VERDE PHOS ####[facility] QGBBPCOTTB3281 [place], Sodium [Moles/Vol]137 mmol/NRhvgws824-097Rwy [facility] SystemComment on above: Performed By: #### MG VERDE PHOS ####[facility] UDTOBYYXIK9873 [place], [address]Hzio nitrogen [Mass/Vol]21 mg/dLNormal7-25The [facility] SystemComment on above:Performed By: #### MG VERDE PHOS ####[facility] XIWSNGWRGA2052 [place], [address]AUBTT GAS, ARTERIALon 23-84-2598AD % O2 SAT> 100.4Oxmz31.0-99.0The [facility] Comment on above:Performed By: #### CR BGA ####[facility] PATHOLOGY QRMOFUAUBF1729 [place], [address]WI ABE2.8 mmol/LNormal-2.0-3.0The [facility] CampusroHealth SystemComment on above:Performed By: #### CR BGA ####[facility] PATHOLOGY QIZLFOUXTV[address] [place] [address], [address]FM VVS535.8 mm HgNormal 35.0-45.0The [facility] CampusroHealth SystemComment on above:Performed By: #### CR BGA ####[facility] PATHOLOGY MYBQWGESCX[address] [place] [address], [address]HT PHA7.673Xrebqw8.350-7.450The [facility] CampusroHealth SystemComment on above:Performed By: #### CR BGA ####[facility] PATHOLOGY SBKQYMOSLC84[address] [place] [address], [address]ZL NX9922 mm LhEopy73-485Uiy [facility] CampusroHealth SystemComment on above: Performed By: #### CR BGA ####[facility] PATHOLOGY ZBFGNGFSOH94[address] [place] [address], [address]WYE2 (CATEGORY)40%NormalThe [facility] System Comment on above:Performed By: #### CR BGA ####[facility] PATHOLOGY BNOFFKIURB[address] [place] [address], [address]KCQ5 (Bld) [Moles/Vol]27 mmol/LNormal 21-28The [facility] CampusroHealth SystemComment on above:Performed By: #### CR BGA ####[facility] PATHOLOGY BCIRFLRDMN[address] [place] [address], [address]TBAUDoki NormalThe [facility] CampusroHealth SystemComment on above:Performed By: #### CR BGA ####[facility] PATHOLOGY GCVXPMXFYG00[address] [place] [address], [address]ECAXJNZT BLOOD COUNTon 25-84-2476Mfzpzrugilj distribution width (RBC) [Ratio]17.5 %High 11.5-14.5The [facility] HospitalHealth SystemComment on above:Performed By: #### CBC ####[facility] PATHOLOGY PSJGPWOBNK[address]255[address] [place] [address], [address]Qmolkjbrse (Bld) [Volume fraction]27.0 %Low41.0-53.0The [facility] CampusroHealth SystemComment on above: Performed By: #### CBC ####[facility] PATHOLOGY ZVGQQDJHZO7127[address] [place] [address], [address]Xxxyokswtv (Bld) [Mass/Vol]9.2 g/dLLow13.9-16.3The [facility] CampusroHealth SystemComment on above:Performed By: #### CBC ####[facility] PATHOLOGY MIPMIKTSMA39[address] [place] [address], [address]XRP (RBC) [Entitic mass]31.7 llLvcvne55.0-34.0The [facility] CampusroHealth SystemComment on above:Performed By: #### CBC ####[facility] PATHOLOGY TGSQMRWQXV7159[address] [place] [address], [address]DHYE (RBC) [Mass/Vol]34.1 g/xPXlvddu12.0-35.9The [facility] Comment on above:Performed By: #### CBC ####[facility] PATHOLOGY LGPDJWISKJ[address] [place] [address], [address]OEG (RBC) [Entitic vol]93 fLNormal 80-100The [facility] HospitalHealth SystemComment on above:Performed By: #### CBC ####[facility] PATHOLOGY XSSDHGJPTM4484[address] [place] [address], [address]Zxbtgvwx mean volume (Bld) [Entitic vol]7.1 fLLow7.5-11.2The [facility] HospitalHealth SystemComment on above:Performed By: #### CBC ####[facility] PATHOLOGY XLAGTWJDEE[address] [place] [address], [address]Rrbmalgyb (Bld) [#/Vol]396 10*3/qRRalxhu498-085Stm [facility] SystemComment on above:Performed By: #### CBC ####[facility] PATHOLOGY XLIGOFKGXJ4264[address] [place] [address], [address]RXP (Bld) [#/Vol]2.90 10*6/uLLow4.50-5.90The [facility] SystemComment on above:Performed By: #### CBC ####[facility] PATHOLOGY JOMPWWNJHK[address] [place] [address], [place], [address]WBQ (Bld) [#/Vol]6.6 10*3/uLNormal4.5-11.5The [facility] SystemComment on above: Performed By: #### CBC ####[facility] KMTBHYZKJR[address] [place] [address], [address]Zrnoffnsot 28-26-0498Wgtdacuuazxzq Authentication Interface Message TextNoMet[facility] SystemTranscription Authentication Interface Message TextNoMet[facility] SystemMAGNESIUMon 06-03-2024 Magnesium [Mass/Vol]2.1 mg/dLNormal1.9-2.7The [facility] SystemComment on above:Performed By: #### AMMON, MG, PHOAlfonzo ####[facility] PATH[facility] WEXJOTXOCQ[address] [place] [address], [address]HAENMGEXJUif 42-74-3425Nrqhjsbyv [Mass/Vol]3.1 mg/dLNormal2.5-5.0The [facility] SystemComment on above:Performed By: #### CH8, MG, PHOS ####[facility] PATH[facility] PEDIKBQJMX2058 [place], [address]Nbsmfmqg Noteson 45-84-3634Jsgkdnlfguqwu Authentication Interface Message TextNoMet[facility] SystemXR CHEST AP OR PA 1 VIEWon 07-52-2571TC CHEST AP OR PA 1 VIEWNoCounts include 234 beds [facility] the [facility]roAngiodroid SystemXR Chest Single viewon 98-22-4200NSSDKJWRDSZ: XR CHEST AP OR PA 1 VIEW [...] Chest Single viewOrdered By: Clare Choe on 92-25-1185MiazfIrwjld Work Phone: [phone] Interactionon 68-44-2848Ewneyjgywlvaa Authentication Interface Message TextNormalThe [facility] SystemBASIC METABOLIC PANELon 03-54-4234Leyae gap [Moles/Vol]13 mmol/FEvhxeu37-52Uyq [facility] SystemComment on above:Performed By: #### AMMON, CRR ####[facility] IGJTQZSRAE0067 [place], [address]Zmcmrmu [Mass/Vol]7.8 mg/dLLow8.6-10.3The [facility] SystemComment on above:Performed By: #### AMMON, CRR ####[facility] PATH[facility] KCFJFFBBRB4275 [place], [place], Chloride [Moles/Vol]100 mmol/FSfkqvj40-687Eci [facility] SystemComment on above:Performed By: #### LLOYD8, CRR ####S PATHOLOGY QWKHOIEABG1786 [place], [address]PH9 [Moles/Vol]33 mmol/BOead92-22Osv [facility] Campusro[facility] SystemComment on above:Performed By: #### LLOYD8, CRR ####S PATHOLOGY PDKPBXLLRN2866 [place], [address]Qqdvhonzdh [Mass/Vol] 0.71 mg/dLNormal0.70-1.30The [facility] SystemComment on above:Performed By: #### LLOYD8, CRR ####[facility] PATHOLOGY SZANFOSQCY6694 [place], [address]HQLVAUNIW GFR (CKD-EPI)91 mL/min/1.73sqmNormal>=60The [facility] SystemComment on above:Result Comment: 2020 CKD EPI [...] Inclusion of Race in Diagnosing Kidney Disease. English Journal of Kidney Diseases 2021;79(2):268-88.e1.2. N Engl J Med 2020 Vol. 385 Issue 19 Pages 173-5481Performed By: #### CH8, CRR ####S PATHOLOGY IDVZRIOUPS0689 [place], [address]Sbuazeo [Mass/Vol]114 mg/aJZhfr84-554Pij [facility] SystemComment on above:Performed By: #### CH8, CRR ####[facility] PATHOLOGY FKSOZCCGII6276 [place], Potassium [Moles/Vol]3.7 mmol/LNormal3.5-5.0The [facility] SystemComment on above:Performed By: #### CH8, CRR ####[facility] PATH[facility] SMZGQBOJQU1176 [place], [address]Ftfidh [Moles/Vol]142 mmol/DVukmzx581-699Ueq [facility] CampusroHealth SystemComment on above:Performed By: #### CH8, CRR ####[facility] PATHOLOGY GIJVVLMKVJ1724 [place], [address]Wyat nitrogen [Mass/Vol]17 mg/dLNormal7-25The [facility] SystemComment on above:Performed By: #### CH8, CRR ####S PATHOLOGY ZULQENQLSY0967 [place], [address]Kpwhx gap [Moles/Vol]13 mmol/GEjgfpg87-89Pjl [facility] SystemComment on above:Performed By: #### LLOYD8, , CHI ####S PATHOLOGY PDLDWQJNXV2259 [place], [address]Pfumxll [Mass/Vol]7.9 mg/dLLow8.6-10.3 The [facility] Hospital[facility] SystemComment on above:Performed By: #### AMMON, , PHOAlfonzo ####S PATHOLOGY NLQBIDQWJF5083 [place], [address]Bwafkqqw [Moles/Vol]99 mmol/CDikkgw49-010Pmt [facility] SystemComment on above:Performed By: #### LLOYD8, MG, PHOAlfonzo ####S PATHOLOGY EVVQQBZYMR4517 [place], [address]PS3 [Moles/Vol]36 mmol/RRtbs81-35Vna [facility] Campusro[facility] SystemComment on above:Performed By: #### AMMON, MG, PHOAlfonzo ####S PATHOLOGY VRTCRHDLVH3410 [place], [address]Axgbwtwclm [Mass/Vol] 0.67 mg/dLLow0.70-1.30The [facility] Hospital[facility] SystemComment on above:Performed By: #### LLOYD8, MG, PHOAlfonzo ####[facility] PATH[facility] ZYBSLNJMBR7410 [place], [address]QNDCAPTWF GFR (CKD-EPI)93 mL/min/1.73sqmNormal>=60The [facility] SystemComment on above:Result Comment: 2020 CKD EPI [...] Inclusion of Race in Diagnosing Kidney Disease. English Journal of Kidney Diseases 2021;79(2):268-88.e1.2. N Engl J Med 2020 Vol. 385 Issue 19 Pages 0971-6080Performed By: ###MG BENAVIDES PHOS ####[facility] PATH[facility] VODHAFZLEM7386 [place], [address]Olpdtct [Mass/Vol]137 mg/rBMone52-352Mha [facility] SystemComment on above:Performed By: ###MG BENAVIDES PHOS ####S PATHOLOGY RUURKJTYGJ1199 [place], [address]Oddqeodwd [Moles/Vol]4.1 mmol/LNormal3.5-5.0The [facility] SystemComment on above:Performed By: ###MG BENAVIDES PHOS ####[facility] PATHOLOGY WFBCMCONGB8496 [place], [address]Gwjary [Moles/Vol]144 mmol/PLlwfxm798-571Rqq [facility] SystemComment on above: Performed By: #### MG VERDE PHOS ####[facility] PATHOLOGY JGNHTLHMAL4547 [place], [address]Gzcw nitrogen [Mass/Vol]15 mg/dLNormal7-25The [facility] SystemComment on above:Performed By: ###MG BENAVIDES PHOS ####[facility] PATHOLOGY JTVTLTWYDK6402 [place], [address]HSOKP GAS, ARTERIALon 96-82-8200VM ABE4.0 mmol/LHigh-2.0-3.0The [facility] SystemComment on above:Performed By: #### CR BGA ####[facility] PATHOLOGY GZMTMLQMTQ88[address] [place] [address], [address]UJ CPW597.2 mm NsUvfv93.0-45.0The [facility] SystemComment on above:Performed By: #### CR BGA ####[facility] PATHOLOGY XASQRBRMVN[address] [place] [address], [address]GI PHA7.359Normal 7.350-7.450The [facility] SystemComment on above:Performed By: #### CR BGA ####[facility] PATHOLOGY TPVVYQAIRI06[address] [place] [address], [address]UI OH7973 mm CgPydj02-040Htf [facility] CampusroHealth SystemComment on above:Performed By: #### CR BGA ####[facility] PATHOLOGY JUDJPGQCMI[address] [place] [address], [address]HGR1 (CATEGORY)50%NormalThe [facility] CampusroHealth SystemComment on above: Performed By: #### CR BGA ####[facility] PATHOLOGY IQYJTXTNOB[address] [place] [address], [address]CHZ4 (Bld) [Moles/Vol]30 mmol/HUvkr48-73Yqi [facility] Campusro[facility] SystemComment on above:Performed By: #### CR BGA ####[facility] PATHOLOGY KERWZEZJVP65[address] [place] [address], [address]HECPVqjfEdcrmjFvs [facility] Campusro[facility] SystemComment on above:Performed By: #### CR BGA ####[facility] PATHOLOGY MIWLFADEZF[address] [place] [address], [address]Wrfork saturation in Blood99.4 %High95.0-99.0The [facility] CampusroHealth SystemComment on above:Performed By: #### CR BGA ####[facility] PATHOLOGY AUYZRGNYBM[address] [place] [address], [address]GF ABE11.9 mmol/LHigh-2.0-3.0The [facility] SystemComment on above: Performed By: #### CR BGA ####[facility] PATHOLOGY FQSTFTOYVO[address] [place] [address], [address]GE WYU249.7 mm FzRhti78.0-45.0The [facility] SystemComment on above:Performed By: #### CR BGA ####[facility] PATHOLOGY GYCZRFVLEO3[address] [place] [address], [address]YD PHA> 7.500High 7.350-7.450The [facility] CampusroHealth SystemComment on above:Performed By: #### CR BGA ####[facility] PATHOLOGY MWXEJVYLUD7[address] [place] [address], [address]TW QF9051 mm SgFdzz78-886Aub [facility] CampusroHealth SystemComment on above:Performed By: #### CR BGA ####[facility] PATHOLOGY KBYZNBDDYO[address] [place] [address], [address]FQE0 (CATEGORY)50%NormalThe [facility] CampusroHealth SystemComment on above: Performed By: #### CR BGA ####[facility] PATHOLOGY HRECISHDHY0060[address] [place] [address], [address]IDE1 (Bld) [Moles/Vol]36 mmol/PWadj59-28Noo [facility] CampusroHealth SystemComment on above:Performed By: #### CR BGA ####[facility] PATHOLOGY DRPCZZTDHQ3727[address] [place] [address], [address]OKBBYkkqWqrmnoSys [facility] SystemComment on above:Performed By: #### CR BGA ####[facility] PATHOLOGY AURDIBZEDV8[address] [place] [address], [address]Vxhwxq saturation in Alvkb140.0 %High95.0-99.0The [facility] Hospital[facility] SystemComment on above:Performed By: #### CR BGA ####[facility] PATHOLOGY NINLNHQXHL59[address] [place] [address], [address]JABAMFUR BLOOD COUNTon 21-34-3027Hdwjgrezcxh distribution width (RBC) [Ratio]18.2 %High11.5-14.5The [facility] Hospital[facility] SystemComment on above:Performed By: #### CBC ####[facility] PATHOLOGY PMQLTJZFYQ9027[address] [place] [address], [address]Lhyaqcpwsp (Bld) [Volume fraction]26.6 %Low41.0-53.0The [facility] CampusroHealth SystemComment on above:Performed By: #### CBC ####[facility] PATHOLOGY QGKLNTUXGS[address] [place] [address], [address]Tnlizstswm (Bld) [Mass/Vol]9.2 g/dLLow 13.9-16.3The [facility] CampusroHealth SystemComment on above:Performed By: #### CBC ####[facility] PATHOLOGY QPLMWDJZXT9616[address] [place] [address], [address]ZSO (RBC) [Entitic mass]31.2 nxLfycrd33.0-34.0The [facility] CampusroHealth SystemComment on above: Performed By: #### CBC ####[facility] PATHOLOGY DEAJGSNNEJ[address] [place] [address], [address]YMGK (RBC) [Mass/Vol]34.7 g/oDFlmasa44.0-35.9The [facility] SystemComment on above:Performed By: #### CBC ####[facility] PATHOLOGY ZXEJLPHXBO9030[address] [place] [address], [address]UJQ (RBC) [Entitic vol] 90 dPMqvxzb71-554Oau [facility] Hospital[facility] SystemComment on above:Performed By: #### CBC ####[facility] PATHOLOGY YNGUAMLROL7357[address] [place] [address], Platelet mean volume (Bld) [Entitic vol]6.3 fLLow7.5-11.2The [facility] CampusroS[facility] Comment on above:Performed By: #### CBC ####[facility] PATHOLOGY OXDQNNAQIC[address] [place] [address], [address]Ymildmlfh (Bld) [#/Vol]409 10*3/uLHigh 150-400The [facility] HospitalHealth SystemComment on above:Performed By: #### CBC ####[facility] PATHOLOGY POGQDKWPMY48[address] [place] [address], [address]MYA (Bld) [#/Vol]2.96 10*6/uLLow4.50-5.90The [facility] SystemComment on above:Performed By: #### CBC ####[facility] PATHOLOGY VDLNCOQXVO59[address] [place] [address], [address]JPA (Bld) [#/Vol]7.8 10*3/uLNormal4.5-11.5The [facility] CampusroS[facility] System Comment on above:Performed By: #### CBC ####[facility] PATHOLOGY QNJURPIXBE3554 [place], [address]NKXNQBHW RANDOMon 82-84-3199EAACYKNH, SERUM2.7 ug/dLNormalThe [facility] SystemComment on above:Performed By: #### CH8, CRR ####[facility] PATHOLOGY VMJCTQWGHJ7010 [place], [address]Bnpwnnbykn 55-54-6159Aqpcxllwfdwjf Authentication Interface Message TextNormSycamore Medical Center SystemMAGNESIUMon 43-16-2536Gxchkmymg [Mass/Vol]1.9 mg/dLNormal1.9-2.7The [facility] SystemComment on above:Performed By: #### CH8, MG, PHOS ####[facility] PATHOLOGY MXCHFCXGGC9[address] [place] [address], 44 [address]PHOSPHORUSon 60-96-9566Utadxjrwg [Mass/Vol]3.5 mg/dLNormal2.5-5.0The [facility] SystemComment on above:Performed By: #### CH8, MG, PHOS ####[facility] PATHOLOGY TKNODKPDBD[address] [place] [address], [address]Oyaduplj Noteson 43-90-7566Ekubxbgnnesqw Authentication Interface Message TextNo[facility] SystemTranscription Authentication Interface Message TextNoMet[facility]Health [facility] SystemXR CHEST AP OR PA 1 VIEWon 33-65-1928VC CHEST AP OR PA 1 VIEW NormalThe [facility] SystemXR Chest Single viewon 63-21-1361IOPZKNSECYW: XR CHEST AP OR PA 1 VIEW [...] Chest Single viewOrdered By: Micah Lynne on 39-36-9483XwvfyOzirdy Work Phone: [phone]:1 Interactionon 11-96-9306Okujzkbzwfyku Authentication Interface Message TextNormalThe [facility] HospitalAngiodroid SystemBASIC METABOLIC PANELon 10-66-5245Vsthb gap [Moles/Vol]11 mmol/UVcvmxr75-81Gam MetAngiodroid SystemComment on above:Performed By: #### CH8 ####[facility] PATH[facility] VGFMVHKPUQ3923 [place], [address]Utfwwcv [Mass/Vol]7.9 mg/dLLow8.6-10.3 The [facility] SystemComment on above:Performed By: #### CH8 ####S PATHOLOGY NSOOGDEEGX2307 [place], [address]Ajqzzyvr [Moles/Vol]96 mmol/YKpe41-687Qss [facility] SystemComment on above:Performed By: #### CH8 ####[facility] PATHOLOGY SISYQGNXAS5673 [place], [address]HD6 [Moles/Vol]41 mmol/KEnxv63-39Sly [facility] CampusroHealth SystemComment on above:Performed By: #### CH8 ####[facility] PATHOLOGY SDCWUMKFYR1364 [place], [address]Bhtoedljkh [Mass/Vol]0.63 mg/dLLow0.70-1.30The [facility] CampusroS[facility] System Comment on above:Performed By: #### CH8 ####[facility] PATHOLOGY GBWQPMECVD0036 [place], [address]JHGEBYZAX GFR (CKD-EPI)94 mL/min/1.73sqmNormal>=60The [facility] SystemComment on above:Result Comment: 2020 CKD EPI [...] Inclusion of Race in Diagnosing Kidney Disease. English Journal of Kidney Diseases 2021;79(2):268-88.e1.2. N Engl J Med 2020 Vol. 385 Issue 19 Pages 0192-1054Performed By: #### CH8 ####S PATHOLOGY VRFUXVBUNS6454 [place], [address]Gfnesar [Mass/Vol]123 mg/lNLmxl58-827 The [facility] SystemComment on above:Performed By: #### CH8 ####S PATHOLOGY MDOPAIGGNR2798 [place], [address]Ggquxcoee [Moles/Vol] 3.3 mmol/LLow3.5-5.0The [facility] SystemComment on above:Performed By: #### CH8 ####S PATHOLOGY DCQQUKONMV4879 [place], Sodium [Moles/Vol]145 mmol/BImaeni194-337Fkt [facility] CampusroHealth SystemComment on above: Performed By: #### CH8 ####[facility] PATHOLOGY [id number] [place], [address]Sbhv nitrogen [Mass/Vol]15 mg/dLNormal7-25The [facility] SystemComment on above:Performed By: #### CH8 ####[facility] PATHOLOGY [id number] [place] [address], [id number] GAPNormalThe [facility] SystemComment on above:Result Comment: Unable to calculate due to elevated BN9Hkkrftlti By: #### CH8 ####[facility] PATHOLOGY [id number] [place] [address], [phone] [Mass/Vol]8.1 mg/dLLow8.6-10.3The [facility] Campusro[facility] SystemComment on above:Performed By: #### CH8 ####[facility] PATHOLOGY [id number] [place] [address], [id number] [Moles/Vol]95 mmol/FLzg81-846Cvc [facility] SystemComment on above:Performed By: #### CH8 ####[facility] PATHOLOGY [id number] [place], [place] [address], [address]OD0 [Moles/Vol]mmol/RYxgy47-06Wts [facility] SystemComment on above:Performed By: #### CH8 ####[facility] PATHOLOGY [id number] [place] [address], [address]Awcvqwdegp [Mass/Vol]0.63 mg/dLLow0.70-1.30The [facility] Comment on above:Performed By: #### CH8 ####S PATHOLOGY TZWEPDPREW[address] [place] [address], [address]ALKEXRVAJ GFR (CKD-EPI)94 mL/min/1.73sqmNormal>=60The [facility] SystemComment on above:Result Comment: 2020 CKD EPI [...] Inclusion of Race in Diagnosing Kidney Disease. English Journal of Kidney Diseases 2021;79(2):268-88.e1.2. N Engl J Med 1 Vol. 385 Issue 19 Pages 6273-9635Performed By: #### CH8 ####[facility] PATHOLOGY FQQQVJCCYO5540 [place], [address]Hksnnns [Mass/Vol]213 mg/kWVbjt89-730 The [facility]ro[facility] SystemComment on above:Performed By: #### CH8 ####[facility] PATHOLOGY QZXQHXNPHY2484 [place], [address]Rpyydimiw [Moles/Vol] 2.8 mmol/LLow3.5-5.0The [facility] SystemComment on above:Performed By: #### CH8 ####[facility] PATHOLOGY CPCZGVTLYP1957 [place], [place], Sodium [Moles/Vol]147 mmol/HCbih710-011Yeq [facility] SystemComment on above: Performed By: #### CH8 ####[facility] PATHOLOGY HLHVKEVDSD9123 [place], [address]Zoki nitrogen [Mass/Vol]17 mg/dLNormal7-25The [facility] SystemComment on above:Performed By: #### CH8 ####S PATHOLOGY ZESDYXJTCR1322 [place], [address]QZGKF GAPNormalThe [facility] Campusro[facility] SystemComment on above:Result Comment: Anion Gap cannot be calculated when CO2 is >45.Performed By: #### CH8 ####S PATHOLOGY MPGEXCNNYO1504 [place], [address]Nhbslwp [Mass/Vol]8.7 mg/dLNormal8.6-10.3The [facility] SystemComment on above:Performed By: #### CH8 ####[facility] PATH[facility]Y MQZBLEHWJF6143 [place], [place], Chloride [Moles/Vol]98 mmol/LSvkasl34-910Tso [facility] SystemComment on above: Performed By: #### CH8 ####[facility] PATHOLOGY GJMZKEOYPP0487 [place], [address]FN7 [Moles/Vol]mmol/FGkuq88-26Seg [facility] SystemComment on above:Performed By: #### CH8 ####[facility] PATHOLOGY NTWMNRNVYU7413 [place], [address]Ijdqomyani [Mass/Vol]0.64 mg/dLLow 0.70-1.30The [facility] SystemComment on above:Performed By: #### CH8 ####[facility] PATHOLOGY VYWLVSUNPU6820 [place], [address]OMYDTRUPE GFR (CKD-EPI)94 mL/min/1.73sqmNormal>=60The [facility] SystemComment on above: Result Comment: 2020 CKD [...] Inclusion of Race in Diagnosing Kidney Disease. English Journal of Kidney Diseases 2021;79(2):268-88.e1.2. N Engl J Med 2020 Vol. 385 Issue 19 Pages 2446-1170Performed By: #### CH8 ####[facility] PATHOLOGY QBPFHZUYCQ1453 [place], [address]Qvnprha [Mass/Vol]99 mg/lDInaiwa57-487 The [facility] SystemComment on above:Performed By: #### CH8 ####S PATHOLOGY QQZQECOVPN5018 [place], [address]Dspbfgeda [Moles/Vol] 3.3 mmol/LLow3.5-5.0The [facility] SystemComment on above:Performed By: #### CH8 ####[facility] PATHOLOGY EAFYUPPWLR4459 [place], Sodium [Moles/Vol]158 mmol/LCritically hjxy763-343Zsg [facility] SystemComment on above:Performed By: #### CH8 ####[facility] PATHOLOGY JSLANNCUAZ[address] [place] [address], [address]Hgnc nitrogen [Mass/Vol]17 mg/dLNormal7-25The [facility] SystemComment on above:Performed By: #### CH8 ####[facility] PATHOLOGY HMCVCGTZSQ[address] [place] [address], [address]KTILG GAPNormalThe [facility] Campusro[facility] SystemComment on above:Result Comment: Unable to calculate the anion gap when the CO2 is >45 mmol/L.Performed By: #### CH8 ####[facility] PATHOLOGY VUVWKQHNBU2544[address] [place] [address], [address]Pxzopvq [Mass/Vol]8.5 mg/dLLow8.6-10.3The [facility] Campus[facility] SystemComment on above:Performed By: #### CH8 ####[facility] PATHOLOGY JZIJNHUGCB65[address] [place] [address], Chloride [Moles/Vol]99 mmol/KUoknnr47-627Vxy [facility]ro[facility] SystemComment on above: Performed By: #### CH8 ####[facility] PATHOLOGY FRSPBVOHPE85[address] [place] [address], [address]GW1 [Moles/Vol]mmol/GPppx37-16Bny [facility]ro[facility] SystemComment on above:Performed By: #### CH8 ####[facility] PATHOLOGY IXEZRKNANN[address] [place] [address], [address]Apsgzobqdn [Mass/Vol]0.68 mg/dLLow 0.70-1.30The [facility] SystemComment on above:Performed By: #### CH8 ####[facility] PATHOLOGY NXEJUGPJZH64[address] [place] [address], [address]NCPQULXGF GFR (CKD-EPI)92 mL/min/1.73sqmNormal>=60The [facility] Campus[facility] SystemComment on above: Result Comment: 2020 CKD [...] Inclusion of Race in Diagnosing Kidney Disease. English Journal of Kidney Diseases 2021;79(2):268-88.e1.2. N Engl J Med 1 Vol. 385 Issue 19 Pages 2098-6294Performed By: #### CH8 ####[facility] PATH[facility]Y ZAQYHYJYYA0761 [place], [address]Jxgbjcp [Mass/Vol]101 mg/dLNormal 74-109The [facility] SystemComment on above:Performed By: #### CH8 ####S PATHOLOGY CCGOLTYKAZ0074 [place], [address]Etuyablmt [Moles/Vol]3.1 mmol/LLow3.5-5.0The [facility] SystemComment on above:Performed By: #### CH8 ####S PATHOLOGY YOELBAWEYY2756 [place], [address]Gwpbvw [Moles/Vol]156 mmol/LCritically ljzf173-666Nwp [facility] SystemComment on above:Performed By: #### CH8 ####S PATHOLOGY VVMJJUBMNZ5724 [place], [address]Rtam nitrogen [Mass/Vol]17 mg/dLNormal 7-25The [facility] SystemComment on above:Performed By: #### CH8 ####S PATHOLOGY JLIPKONIRO5266 [place], [address]ORZNS GAP NormalThe [facility] SystemComment on above:Result Comment: Unable to calculate the anion gap when CO2 is >45 mmol/L.Performed By: #### CHI PRADO CH8 ####[facility] PATH[facility]Y UALGEJQVMV6551 [place], [address]Ibmfbuv [Mass/Vol]8.7 mg/dLNormal8.6-10.3The [facility] SystemComment on above: Performed By: #### CHI PRADO CH8 ####[facility] PATHOLOGY ZXTGNIXAFC8036 [place], [address]Dysktgmh [Moles/Vol]99 mmol/PGluszw73-894Rfn [facility] SystemComment on above:Performed By: #### CHI PRADO CH8 ####[facility] PATHOLOGY LXNHEHKNUM0449 [place], [address]UI7 [Moles/Vol]mmol/ESuzk06-19Eou [facility] SystemComment on above:Performed By: #### CHI PRADO CH8 ####[facility] PATHOLOGY ZKRUKPADJN5036 [place], [address]Tqoyclmezg [Mass/Vol]0.72 mg/dLNormal0.70-1.30The [facility] SystemComment on above:Performed By: #### CHI PRADO CH8 ####S PATHOLOGY FDMUQVMPOI8567 [place], [address]RPYPLNDJL GFR (CKD-EPI) 91 mL/min/1.73sqmNormal>=60The [facility] SystemComment on above:Result Comment: 2020 CKD EPI [...] Inclusion of Race in Diagnosing Kidney Disease. English Journal of Kidney Diseases 2021;79(2):268-88.e1.2. N Engl J Med 2020 Vol. 385 Issue 19 Pages 9698-8928Performed By: #### CHI PRADO CH8 ####[facility] PATHOLOGY EXJEDODKDY8480 [place], [address]Qtrmjwu [Mass/Vol]99 mg/dLNormal 74-109The [facility] SystemComment on above:Performed By: #### CHI PRADO CH8 ####S PATHOLOGY LVFOWPNCDS8163 [place], Potassium [Moles/Vol]3.4 mmol/LLow3.5-5.0The [facility] SystemComment on above: Performed By: #### CHI PRADO CH8 ####[facility] PATHOLOGY BPWBGAMWSX[address] [place] [address], [address]Mtrwas [Moles/Vol]156 mmol/LCritically ugsi257-073 The [facility] SystemComment on above:Performed By: #### CHI PRADO CH8 ####[facility] PATHOLOGY WRERYLXISW1407 [place], [address]Rizu nitrogen [Mass/Vol]17 mg/dLNormal7-25The [facility] SystemComment on above:Performed By: #### CHI PRADO CH8 ####[facility] PATHOLOGY QEGBDJECTD1758[address] [place] [address], [address]VYBUU GAS, ARTERIALon 96-92-4813DX ABE16.8 mmol/L High-2.0-3.0The [facility] SystemComment on above:Performed By: #### CR BGA ####[facility] PATHOLOGY OKJWKJAIGP8664[address] [place] [address], [address]HQ QCY513.7 mm ZwRfryaj32.0-45.0The [facility] Campus[facility] SystemComment on above:Performed By: #### CR BGA ####[facility] PATHOLOGY KBABQCPHPG9[address] [place] [address], [address]VX PHA> 7.865Tbjo1.350-7.450The [facility] CampusroHealth SystemComment on above: Performed By: #### CR BGA ####[facility] PATHOLOGY TCXCKIRQXL[address] [place] [address], [address]JX IO5057 mm VtQxqr83-234Hkn [facility] Comment on above:Performed By: #### CR BGA ####[facility] PATHOLOGY WAOAZMDHOR60[address] [place] [address], [address]BFQ5 (CATEGORY)60%NormalThe [facility] SystemComment on above:Performed By: #### CR BGA ####[facility] PATHOLOGY FHUZKRTJRR2676[address] [place] [address], [address]UCK3 (Bld) [Moles/Vol] 41 mmol/XEooc25-85Iov [facility] SystemComment on above:Performed By: #### CR BGA ####[facility] PATHOLOGY HPZDDLTFTG8328[address] [place] [address], MODEVentNormalThe [facility] Campus[facility]Health SystemComment on above:Performed By: #### CR BGA ####[facility] PATHOLOGY VAGAGDKDYJ3617[address] [place] [address], Oxygen saturation in Blood99.9 %High95.0-99.0The [facility] SystemComment on above:Performed By: #### CR BGA ####[facility] PATHOLOGY RDTBHPBMSP0927[address] [place] [address], [address]US ABE24.3 mmol/LHigh-2.0-3.0The [facility] SystemComment on above:Performed By: #### CR BGA ####[facility] PATHOLOGY CMWBYAEMAT4965[address] [place] [address], [address]JL HCO3> 99Qfeu61-93Pnb [facility] SystemComment on above:Performed By: #### CR BGA ####[facility] PATHOLOGY LGTTVFQGPG6667[address] [place] [address], [address]PC GEP311.5 mm Hg Critically high35.0-45.0The [facility] Campus[facility] SystemComment on above:Performed By: #### CR BGA ####[facility] PATHOLOGY UWPBVOYUMZ[address] [place] [address], [address]EC PHA7.606Crqu6.350-7.450The [facility] Campus[facility] SystemComment on above: Performed By: #### CR BGA ####[facility] PATHOLOGY WZJFDUKBVA5568[address] [place] [address], [address]ZJ PO271 mm ZkVql92-437Ait [facility] Comment on above:Performed By: #### CR BGA ####[facility] PATHOLOGY SFTQKYYHDQ4114[address] [place] [address], [address]KZE2 (CATEGORY)50%NormalThe [facility] Campus[facility] SystemComment on above:Performed By: #### CR BGA ####[facility] PATHOLOGY UQLDGIHJVM[address] [place] [address], [address]QBQCXPIHUYngfdjZiy [facility] SystemComment on above:Performed By: #### CR BGA ####[facility] PATHOLOGY YGMKLBKPBR7244 [place], [address]Vwxrgh saturation in Blood95.3 %Vrdckg05.0-99.0The [facility] SystemComment on above:Performed By: #### CR BGA ####[facility] PATHOLOGY CFBZEAIRDR268[address] [place] [address], [address]TI ABE23.5 mmol/LHigh-2.0-3.0The [facility] SystemComment on above: Performed By: #### CR BGA ####[facility] PATHOLOGY GGOHXHAVVG1179[address] [place] [address], [address]AE HCO3> 74Psvh83-18Gev [facility] SystemComment on above:Performed By: #### CR BGA ####[facility] PATHOLOGY VFGARGRQUR0908[address] [place] [address], [address]YB QQN428.5 mm HgCritically high35.0-45.0The [facility] SystemComment on above:Performed By: #### CR BGA ####[facility] PATHOLOGY ERPACUKQMT6517[address] [place] [address], [address]JV PHA7.480High 7.350-7.450The [facility] SystemComment on above:Performed By: #### CR BGA ####[facility] PATHOLOGY IPMMGHJNQX101[address] [place] [address], [address]DL PO285 mm ToUsktqw24-298Ems [facility] SystemComment on above:Performed By: #### CR BGA ####[facility] PATHOLOGY BFHRNDRFRY1859[address] [place] [address], [address]YSY0 (CATEGORY)60%NormalThe [facility] SystemComment on above: Performed By: #### CR BGA ####[facility] PATHOLOGY UPIXMPZZJZ8096[address] [place] [address], [address]CHQALHVVCMkvgekPax [facility] SystemComment on above:Performed By: #### CR BGA ####[facility] PATHOLOGY XAKEQJIUJU2927[address] [place] [address], [address]Aydylx saturation in Blood97.2 %Lamrez51.0-99.0The [facility] SystemComment on above:Performed By: #### CR BGA ####[facility] PATHOLOGY ILZITQHFND4034[address] [place] [address], [address]TT ABE21.8 mmol/LHigh -2.0-3.0The [facility] Campus[facility] SystemComment on above:Performed By: #### CR BGA ####[facility] PATHOLOGY RFJDYWOTYX[address] [place] [address], [address]RS HCO3> 45 Kmib03-15Avx [facility] Campus[facility] SystemComment on above:Performed By: #### CR BGA ####[facility] PATHOLOGY BKULLQWNDD039[address] [place] [address], [address]FK FCG640.6 mm HgCritically high35.0-45.0The [facility] Campus[facility] SystemComment on above: Performed By: #### CR BGA ####[facility] PATHOLOGY GVPRCOOJNB0034[address] [place] [address], [address]TI PHA7.946Jemf2.350-7.450The [facility] Comment on above:Performed By: #### CR BGA ####[facility] PATHOLOGY BKURDAYNKD6977[address] [place] [address], [address]HE PO298 mm BtUcfkly26-669Jpp [facility] SystemComment on above:Performed By: #### CR BGA ####[facility] PATHOLOGY HIGHVTSKRV6418[address] [place] [address], [address]WOZ3 (CATEGORY)60% NormalThe [facility] Campus[facility] SystemComment on above:Performed By: #### CR BGA ####[facility] PATHOLOGY TOIJKWWGSK1050[address] [place] [address], [address]FCWBUAAZM NormalThe [facility] Campus[facility] SystemComment on above:Performed By: #### CR BGA ####[facility] PATHOLOGY ATPJQLZEXF4440[address] [place] [address], [address]Ffglbp saturation in Blood97.9 %Togquj08.0-99.0The [facility] Campus[facility] SystemComment on above: Performed By: #### CR BGA ####[facility] PATHOLOGY NJYFXKVFRE4878[address] [place] [address], [address]GOHUGUIX BLOOD COUNTon 56-58-4549Cnlqjrlzqxe distribution width (RBC) [Ratio]16.3 %High11.5-14.5The [facility] SystemComment on above:Performed By: #### CBC ####[facility] PATHOLOGY LGQJHXWVHI7706[address] [place] [address], [address]Wfknemdkcb (Bld) [Volume fraction]21.9 %Low 41.0-53.0The [facility] CampusroHealth SystemComment on above:Performed By: #### CBC ####[facility] PATHOLOGY TQNTLREDJH5786[address] [place] [address], [address]Bjpfuxvmww (Bld) [Mass/Vol]7.1 g/dLLow13.9-16.3The [facility] Campus[facility] SystemComment on above: Performed By: #### CBC ####[facility] PATHOLOGY CIBTEUPPMO0439[address] [place] [address], [address]PIT (RBC) [Entitic mass]32.0 wtQrtwpi99.0-34.0The [facility] SystemComment on above:Performed By: #### CBC ####[facility] PATHOLOGY VYALFSIEQO7989[address] [place] [address], [address]JCUD (RBC) [Mass/Vol] 32.5 g/lAKpycxt26.0-35.9The [facility] Campus[facility] SystemComment on above:Performed By: #### CBC ####[facility] PATHOLOGY UBCBKTGMPE0564[address] [place] [address], [address]PSN (RBC) [Entitic vol]98 mZElabha72-176Vop [facility] Campus[facility] SystemComment on above:Performed By: #### CBC ####[facility] PATHOLOGY BMVZYTINCO0014[address] [place] [address], [address]Vpwcccot mean volume (Bld) [Entitic vol]6.2 fLLow 7.5-11.2The [facility] SystemComment on above:Performed By: #### CBC ####[facility] PATHOLOGY XHSOGGJDAW0589[address] [place] [address], [address]Fuwuqlwbh (Bld) [#/Vol]449 10*3/vHBsnl692-659Hks [facility] SystemComment on above: Performed By: #### CBC ####[facility] PATHOLOGY LEGEWYFPYX8357[address] [place] [address], [address]UCG (Bld) [#/Vol]2.23 10*6/uLLow4.50-5.90The [facility] Campus[facility] SystemComment on above:Performed By: #### CBC ####[facility] PATHOLOGY RLVWSEDTEP8200[address] [place] [address], [address]VYO (Bld) [#/Vol]7.8 10*3/uLNormal4.5-11.5The [facility] Campus[facility]Health SystemComment on above:Performed By: #### CBC ####[facility] PATHOLOGY ELYOSHNAQN4896[address] [place] [address], Erythrocyte distribution width (RBC) [Ratio]16.8 %High11.5-14.5The [facility] CampusroHealth SystemComment on above:Performed By: #### CBC ####[facility] PATHOLOGY OGRAAMXYPW288[address] [place] [address], [address]Ngbsjcmieg (Bld) [Volume fraction]21.3 %Low41.0-53.0The [facility] Campus[facility] SystemComment on above:Performed By: #### CBC ####[facility] PATHOLOGY UNWUQAZSEK5616[address] [place] [address], Hemoglobin (Bld) [Mass/Vol]7.1 g/dLLow13.9-16.3The [facility] Campus[facility]Health SystemComment on above:Performed By: #### CBC ####[facility] PATHOLOGY NKNAJUBXSY[address] [place] [address], [address]DZP (RBC) [Entitic mass]32.6 eqWfxjjg44.0-34.0The [facility] CampusroHealth SystemComment on above:Performed By: #### CBC ####[facility] PATHOLOGY NAJIPNQPJB3118[address] [place] [address], [address]QHME (RBC) [Mass/Vol] 33.2 g/iIUocaap91.0-35.9The [facility] CampusroHealth SystemComment on above:Performed By: #### CBC ####[facility] PATHOLOGY TTDMLTNILI3884[address] [place] [address], [address]BGN (RBC) [Entitic vol]98 wUQcfrrf79-665Ldd [facility] Campus[facility] SystemComment on above:Performed By: #### CBC ####[facility] PATHOLOGY FEHKTZLJBB3715 [place], [address]Fhtyafns mean volume (Bld) [Entitic vol]6.4 fLLow 7.5-11.2The [facility] SystemComment on above:Performed By: #### CBC ####[facility] PATHOLOGY EOSCJGDDWL6145[address] [place] [address], [address]Oolhssdbm (Bld) [#/Vol]451 10*3/vNCewf720-848Jng [facility] Campus[facility]Health SystemComment on above: Performed By: #### CBC ####[facility] PATHOLOGY QGIRDNUFLQ3907[address] [place] [address], [address]RQU (Bld) [#/Vol]2.17 10*6/uLLow4.50-5.90The [facility] SystemComment on above:Performed By: #### CBC ####[facility] PATHOLOGY FTKNNQWZEA5948[address] [place] [address], [address]FDD (Bld) [#/Vol]8.2 10*3/uLNormal4.5-11.5The [facility] SystemComment on above:Performed By: #### CBC ####[facility] PATHOLOGY TXYEUBVFFX3319[address] [place] [address], Erythrocyte distribution width (RBC) [Ratio]16.7 %High11.5-14.5The [facility] SystemComment on above:Performed By: #### CBC ####[facility] PATHOLOGY AXFDMYBYYM7912[address] [place] [address], [address]Zglvvqouda (Bld) [Volume fraction]26.2 %Low41.0-53.0The [facility] SystemComment on above:Performed By: #### CBC ####[facility] PATHOLOGY LLNUOXPWWE[address] [place] [address], Hemoglobin (Bld) [Mass/Vol]8.6 g/dLLow13.9-16.3The [facility] SystemComment on above:Performed By: #### CBC ####[facility] PATHOLOGY BVSRCNMUKI3495[address] [place] [address], [address]UYG (RBC) [Entitic mass]31.8 ohRkcnqz26.0-34.0The [facility] SystemComment on above:Performed By: #### CBC ####[facility] PATHOLOGY XAAXTTOOTX7919 [place], [address]VLGH (RBC) [Mass/Vol] 32.9 g/tPPhejao93.0-35.9The [facility] SystemComment on above:Performed By: #### CBC ####[facility] PATHOLOGY XWQNQBTBLT0972 [place], [address]VNE (RBC) [Entitic vol]97 xPHlayop79-868Nzd [facility] SystemComment on above:Performed By: #### CBC ####[facility] PATHOLOGY ICDXEHKYUF0126[address] [place] [address], [address]Qpisetht mean volume (Bld) [Entitic vol]6.2 fLLow 7.5-11.2The [facility] Campus[facility]Health SystemComment on above:Performed By: #### CBC ####[facility] PATHOLOGY WTNVIRATMD[address] [place] [address], [address]Crvljywfg (Bld) [#/Vol]565 10*3/yLLube963-072Cnr [facility] CampusroHealth SystemComment on above: Performed By: #### CBC ####[facility] PATHOLOGY GTGQKJVTYY[address] [place] [address], [address]KPZ (Bld) [#/Vol]2.71 10*6/uLLow4.50-5.90The [facility] CampusroHealth SystemComment on above:Performed By: #### CBC ####[facility] PATHOLOGY BQPYRAKHQH[address] [place] [address], [address]UXD (Bld) [#/Vol]14.0 10*3/uLHigh4.5-11.5The [facility] CampusroHealth SystemComment on above:Performed By: #### CBC ####[facility] PATHOLOGY ICHQXKOHUO40[address] [place] [address], [address]OT CHEST/ABD/PELVIS W/ CONTRASTon [id number] CHEST/ABD/PELVIS W/ CONTRASTNormal The [facility] CampusroHealth SystemCTA CHEST PULMONARY EMBOLISM W/on [id number] CHEST PULMONARY EMBOLISM W/NormalThe [facility] CampusroShel[facility] SystemConsultson 06-01-2024 General Contractor Authentication Interface Message TextNoMetroHealth [facility] System General Contractor Authentication Interface Message TextPhysical therapy Attempted to see. Pt just re-intubated and RNs asked to defer treatment until BP is stable Will attempt at later time/date Sharyn Waldron, PTNormalThe [facility] SystemMAGNESIUMon 27-71-2654Zbdniqxny [Mass/Vol]2.4 mg/dLNormal1.9-2.7The [facility] SystemComment on above:Performed By: #### CHI PRADO CH8 ####[facility] NRPGYRSVPS6174 [place], [address]YTHY SCREENon 83-20-4927QPGI DNA JASMINA+probe Ql (Unsp spec)CMR: No methicillin resistant Staphylococcus aureus isolated.NormalNo methicillin resistant Staphylococcus aureus isolated.The [facility] SystemComment on above: Performed By: #### CMR ####[facility] Cle[address] [place], [place] [address]PHOSPHORUSon 95-63-0203Xxpvlmkqi [Mass/Vol]3.2 mg/dLNormal2.5-5.0 The [facility] SystemComment on above:Performed By: #### CHI PRADO CH8 ####[facility] LBPYVOJOYI[address] [place] [address], [address]Xzvpdxaheblk 02-66-4530Cjkmdxdsebrhd Authentication Interface Message TextSt. [facility] SystemProgress Noteson 24-24-8134Yseomjdemrryj Authentication Interface Message TextSt. [facility] SystemTranscription Authentication Interface Message TextNoMetroHealth Par[facility] SystemTranscription Authentication Interface Message Pruh3320-Lcyoqik being prepared for intubation at the bedside. 0846-30 mg etomidate IV push given, 100 mg rocuronium IV push given. 0847-patient being bagged with 100% O2. 0848- #8.0 @ 24 lip, positive color change noted, bilateral breath sounds heard. NormalThe [facility] SystemTranscription Authentication Interface Message Text Dr. Mills notified of critical PCO2 value of 68.5. Dr. Mills read back critical results. New orders not received.NormalThe [facility] HospitalAngiodroid System General Contractor Authentication Interface Message TextNoMetroHealth [facility] System RED BLOOD CELL COMPONENTon 95-49-4269GN ORDER ITEMProduct status info to follow NormalHocking Valley Community Hospital SystemComment on above:Performed By: #### RBO ####S PATHOLOGY SCUGLQNILV[address] [place] [address], [address]TK ORDER ITEM Product status info to followSt. John's [facility] SystemComment on above: Performed By: #### RBO ####S PATHOLOGY CSNCIZLOHV[address] [place] [address], [address]WEZ BLOOD CELL UNIT STATUSon 63-95-2031TCEOR PRODUCT [id number] [facility] SystemComment on above:Performed By: #### RBU ####[facility] PATHOLOGY EHAXCOHEAL[address] [place] [address], [address]YNXNH PRODUCT DESCRIPTIONRed Blood CellsSt. John's [facility] System Comment on above:Performed By: #### RBU ####[facility] PATHOLOGY WTNCYPOAVE[address] [place] [address], [address]JPRRP PRODUCT STATUSTransfusedNormal The [facility] SystemComment on above:Performed By: #### RBU ####[facility] PATHOLOGY FKSOLFTUUM[address] [place] [address], [address]VRHTK PRODUCT UNIT INFO [id number] [facility] SystemComment on above:Performed By: #### RBU ####S PATHOLOGY QNUTGDSBYN[address] [place] [address], BLOOD PRODUCT UNIT [id number]. John's [facility] SystemComment on above:Result Comment: A PosPerformed By: #### RBU ####S PATHOLOGY TTGDJKLVLT[address] [place] [address], [address]YXXKXKOSUF INTERPRETATIONCompatible (E)NormalHocking Valley Community Hospital SystemComment on above:Performed By: #### RBU ####S PATHOLOGY KGCTZXVTSX[address] [place] [address], [address]GWFSN PRODUCT [id number] [facility] SystemComment on above:Performed By: #### RBU ####[facility] WYBFQTZLDN6027 [place], [place], BLOOD PRODUCT DESCRIPTIONRed Blood CellsNoMetroHealth Parma Medical Center SystemComment on above:Performed By: #### RBU ####[facility] PATHOLOGY FQAPQUMFAU9384[address] [place] [address], [address]ABTBT PRODUCT STATUSTransfusedNormalThe [facility] SystemComment on above:Performed By: #### RBU ####[facility] PATHOLOGY YXBNYOSWEO[address] [place] [address], [address]XYMDU PRODUCT UNIT INFO [id number] [facility] SystemComment on above:Performed By: #### RBU ####[facility] PATHOLOGY DEUIUVQUFC6976[address] [place] [address], BLOOD PRODUCT UNIT [id number] Parma Medical Center SystemComment on above:Result Comment: A PosPerformed By: #### RBU ####[facility] PATHOLOGY XCDDMOINJR[address] [place] [address], [address]SPICIRERGC INTERPRETATIONCompatible (E)NormalThe [facility] SystemComment on above:Performed By: #### RBU ####[facility] PATHOLOGY DQRVVBTZNW9[address] [place] [address], [address]URLV AND SCREENon 32-05-5312YCJ and Rh group Nom (Bld)Blood group A Rh(D) positiveNormal The [facility] SystemComment on above:Performed By: #### TS ####[facility] PATHOLOGY KITQRLUMOG14[address] [place] [address], [address]INJH INTNegativeNormal The [facility] SystemComment on above:Performed By: #### TS ####[facility] PATHOLOGY CYIENOQSQP5[address] [place] [address], [address]MB ABDOMEN AP 1 VIEWon 42-97-7567TN ABDOMEN AP 1 VIEWNoMetroHealth Parma Medical Center SystemXR Abdomen APon 79-31-2046HDWGNEXZXQY: XR ABDOMEN AP 1 VIEW 06/01/2024 06:34 [...] obstruction, CT can be performed. MACRO: None [facility]HealthRad[facility] Study observation (narrative)MetroHealthXR Abdomen AP Ordered By: Clare Choe on 40-86-7050BdjbcBfruhr Work Phone: XR CHEST AP OR PA 1 VIEWon 56-14-7336HG CHEST AP OR PA 1 VIEWNormalThe [facility] SystemXR CHEST AP OR PA 1 VIEWNormalThe [facility] SystemXR CHEST AP OR PA 1 VIEWNormalThe [facility] SystemBASIC METABOLIC PANEL on 21-16-5238Yasnc gap [Moles/Vol]12 mmol/XLubmrj60-18Lle [facility] System Comment on above:Performed By: #### CHI PRADO CH8 ####[facility] QGSBUNIJHC8460 [place], [address]Rucseze [Mass/Vol]8.6 mg/dLNormal8.6-10.3The [facility] SystemComment on above:Performed By: #### CHI PRADO CH8 ####[facility] PATH[facility]Y DNJVBDRGRQ3818 [place], [place], [address]Chloride [Moles/Vol]99 mmol/KYkjhrc02-954Xly [facility] SystemComment on above:Performed By: #### CHI PRADO CH8 ####[facility] PATH[facility]Y DDEEFYWFTN7661 [place], [address]TF0 [Moles/Vol]40 mmol/FColv87-58Fey [facility] SystemComment on above:Performed By: #### CHI PRADO CH8 ####[facility] PATH[facility]Y AMKRTUQDQS6539 [place], [address]Pzceqyheud [Mass/Vol]0.77 mg/dLNormal0.70-1.30The [facility] SystemComment on above: Performed By: #### CHI PRADO CH8 ####[facility] PATH[facility]Y GLVMUDYVJZ3679 [place], [address]GTPSKGRUQ GFR (CKD-EPI)89 mL/min/1.73sqmNormal>=60 The [facility] SystemComment on above:Result Comment: 2020 CKD EPI [...] Inclusion of Race in Diagnosing Kidney Disease. English Journal of Kidney Diseases 2021;79(2):26 8-88.e1.2. N Engl J Med 1 Vol. 385 Issue 19 Pages 1734-1743Performed By: #### CHI PRADO CH8 ####S PATHOLOGY GHHMRYEPVL4027 [place], [address]Exrbwmi [Mass/Vol]113 mg/vLWheo69-141Bsm [facility] CampusroHealth SystemComment on above:Performed By: #### CHI PRADO CH8 ####S PATHOLOGY KGVTEDPOWC1009 [place], [address]Gbyeeraap [Moles/Vol]3.1 mmol/LLow 3.5-5.0The [facility] CampusroHealth SystemComment on above:Performed By: #### CHI PRADO CH8 ####S PATHOLOGY UBREESBXRU4184 [place], Sodium [Moles/Vol]148 mmol/WXind531-336Bui [facility] HospitalHealth SystemComment on above: Performed By: #### CHI PRADO CH8 ####S PATHOLOGY NEMRTYZGSH[address] [place] [address], [address]Ibmf nitrogen [Mass/Vol]18 mg/dLNormal7-25The [facility] HospitalHealth SystemComment on above:Performed By: #### CHI PRADO CH8 ####S PATHOLOGY IKNPLZOLNI3999[address] [place] [address], [address]NELMG GAS, ARTERIALon 18-56-9973XD ABE14.8 mmol/LHigh-2.0-3.0The [facility] CampusroHealth SystemComment on above:Performed By: #### CR BGA ####S PATHOLOGY OUNWTYASCK0145 [place], [address]HO LUT271.9 mm TgPevk52.0-45.0The [facility] CampusroHealth SystemComment on above:Performed By: #### CR BGA ####S PATHOLOGY FLAKWBJXIO5058[address] [place] [address], [address]BN PHA7.490High 7.350-7.450The [facility] HospitalHealth SystemComment on above:Performed By: #### CR BGA ####S PATHOLOGY UXGBMCPKVX380[address] [place] [address], [address]GV PO266 mm SoUzu89-048Wvn [facility] CampusroHealth SystemComment on above:Performed By: #### CR BGA ####[facility] PATHOLOGY VIPHQHRGLI3612[address] [place] [address], FIO2 (CATEGORY)60%NormalThe [facility] CampusroHealth SystemComment on above:Performed By: #### CR BGA ####[facility] PATHOLOGY XUEZCYWYFR826[address] [place] [address], [address]TIH4 (Bld) [Moles/Vol]40 mmol/WWqgi17-61Ptu [facility] CampusroHealth SystemComment on above:Performed By: #### CR BGA ####[facility] PATHOLOGY BTXJKDONUM20[address] [place] [address], [address]NVQRHxumd CanWestern Plains Medical ComplexroHealth System Comment on above:Result Comment: 60LPerformed By: #### CR BGA ####[facility] PATHOLOGY ABGSUQHLLT[address] [place] [address], [address]Osoksn saturation in Blood94.2 %Low95.0-99.0The [facility] CampusroHealth SystemComment on above:Performed By: #### CR BGA ####[facility] PATHOLOGY DSHQFPFQJF9128[address] [place] [address], [address]QO ABE15.2 mmol/LHigh-2.0-3.0The [facility] CampusroHealth SystemComment on above: Performed By: #### CR BGA ####[facility] PATHOLOGY PDAMKWLDRG229[address] [place] [address], [address]OZ PSB926.5 mm YpIdez50.0-45.0The [facility] CampusroHealth SystemComment on above:Performed By: #### CR BGA ####[facility] PATHOLOGY BARTLLYRQP5284[address] [place] [address], [address]LD PHA7.471High 7.350-7.450The [facility] CampusroHealth SystemComment on above:Performed By: #### CR BGA ####[facility] PATHOLOGY NYGGIDCVMC7634[address] [place] [address], [address]NR GC0540 mm YmKlzc59-261Giv [facility] CampusroHealth SystemComment on above:Performed By: #### CR BGA ####[facility] PATHOLOGY VPNJJISIQX6327[address] [place] [address], [address]PQU1 (CATEGORY)70%NormalThe [facility] CampusroHealth SystemComment on above: Performed By: #### CR BGA ####[facility] PATHOLOGY BEKLGPFSVE6388[address] [place] [address], [address]ZJH2 (Bld) [Moles/Vol]41 mmol/AHidj62-31Wgp [facility] CampusroHealth SystemComment on above:Performed By: #### CR BGA ####[facility] PATHOLOGY FBFEWEHEZV577[address] [place] [address], [address]ZZNERYTMSZyitfaXcp [facility] CampusroHealth SystemComment on above:Performed By: #### CR BGA ####[facility] PATHOLOGY RHVNXYASNK34[address] [place] [address], [address]Ejsxfa saturation in Blood99.8 %High95.0-99.0The [facility] CampusroHealth SystemComment on above:Performed By: #### CR BGA ####[facility] PATHOLOGY NCKZYUZVQT6320[address] [place] [address], [address]UFHAHNDY BLOOD COUNTon 38-52-4511Rsjvmgdwcph distribution width (RBC) [Ratio]16.1 %High11.5-14.5The [facility] Hospital[facility] SystemComment on above:Performed By: #### CBC ####[facility] PATHOLOGY WBHSNSCRXV4000[address] [place] [address], [address]Tzqdervguf (Bld) [Volume fraction]25.2 %Low41.0-53.0The [facility] HospitalHealth SystemComment on above:Performed By: #### CBC ####[facility] PATHOLOGY SYWMHBZTTI327[address] [place] [address], [address]Ssttieinwu (Bld) [Mass/Vol]8.2 g/dLLow 13.9-16.3The [facility] CampusroHealth SystemComment on above:Performed By: #### CBC ####[facility] PATHOLOGY VLEMIAUIRU0599[address] [place] [address], [address]BQQ (RBC) [Entitic mass]31.4 oaFhygfs10.0-34.0The [facility] HospitalHealth SystemComment on above: Performed By: #### CBC ####[facility] PATHOLOGY JUSMJUCJGX1769[address] [place] [address], [address]KPON (RBC) [Mass/Vol]32.6 g/nAHvmlxc93.0-35.9The [facility] CampusroHealth SystemComment on above:Performed By: #### CBC ####[facility] PATHOLOGY QVCYKCVZKK2848[address] [place] [address], [address]IXE (RBC) [Entitic vol] 96 sJZdaxdr83-297Liq [facility] SystemComment on above:Performed By: #### CBC ####[facility] PATHOLOGY ZNZUKNQDYQ4039[address] [place] [address], Platelet mean volume (Bld) [Entitic vol]6.2 fLLow7.5-11.2The [facility] System Comment on above:Performed By: #### CBC ####[facility] PATHOLOGY LHVQECJZPK1389[address] [place] [address], [address]Oxutdxonz (Bld) [#/Vol]548 10*3/uLHigh 150-400The [facility] HospitalHealth SystemComment on above:Performed By: #### CBC ####[facility] PATHOLOGY LYSQAPACXM5997[address] [place] [address], [address]LYE (Bld) [#/Vol]2.62 10*6/uLLow4.50-5.90The [facility] CampusroHealth SystemComment on above:Performed By: #### CBC ####[facility] PATHOLOGY NJPEYLDZKW3427[address] [place] [address], [address]ZWT (Bld) [#/Vol]14.9 10*3/uLHigh4.5-11.5The [facility] SystemComment on above:Performed By: #### CBC ####[facility] PATHOLOGY MFFBNSGPAO17[address] [place] [address], [address]GJ ABDOMEN/PELVIS W/ CONTRASTon 41-40-9616LN ABDOMEN/PELVIS W/ CONTRASTNormalThe [facility] CampusroHealth SystemMAGNESIUMon 05-31-2024 Magnesium [Mass/Vol]2.8 mg/dLHigh1.9-2.7The [facility] SystemComment on above: Performed By: #### MG, PHOS, CH8 ####[facility] PATHOLOGY NMARGESQUC[address] [place] [address], [address]MIKGIBAKSYqd 45-80-5910Zkwyfehpb [Mass/Vol]3.4 mg/dLNormal2.5-5.0The [facility] HospitalAngiodroid SystemComment on above:Performed By: #### CHI PRADO CH8 ####[facility] PATH[facility]Y WYGYIFVYRE1645 [place], [place], [address]Progress Noteson 10-61-0875Pgufqkqemyjmt Authentication Interface Message TextNormalThe [facility] Community CampusNinite SystemXR ABDOMEN AP 1 VIEWon 56-02-2528HZ ABDOMEN AP 1 VIEWNormalThe [facility] CampusroAngiodroid SystemXR CHEST AP OR PA 1 VIEWon 17-28-5144EP CHEST AP OR PA 1 VIEWNormalThe [facility] CampusroAngiodroid SystemXR Chest Single viewon 91-94-4308CHYPBNYPVFP: XR CHEST AP OR PA 1 VIEW [...] Chest Single viewOrdered By: Marek Rodríguez on 60-53-0510KfbtmItotmw Work Phone: [phone] Interactionon 64-49-4866Sdtlbdrwkznng Authentication Interface Message TextNormalThe [facility] HospitalAngiodroid SystemBASIC METABOLIC PANELon 65-45-7511Iqqaj gap [Moles/Vol]11 mmol/HPfhbns25-74Srd [facility] SystemComment on above:Performed By: #### MG, PHOS, CH8 ####[facility] PATHOLOGY QUUTXTHSDW6380 [place], [address]Robnnsz [Mass/Vol]8.2 mg/dLLow8.6-10.3The [facility] SystemComment on above:Performed By: #### MG, PHOS, CH8 ####[facility] PATHOLOGY HJHUFGMEGJ6617 [place], [place], [address]Chloride [Moles/Vol]102 mmol/WCbgvrx67-794Nlw [facility] SystemComment on above:Performed By: #### MG, PHOS, CH8 ####[facility] PATHOLOGY IWGLZEXCAL1588 [place], [address]VM1 [Moles/Vol]32 mmol/TJnxr25-92Emw [facility] SystemComment on above:Performed By: #### MG, PHOS, CH8 ####[facility] PATHOLOGY OLUKVIJSHA3268 [place], [address]Hiynmgheig [Mass/Vol]0.66 mg/dLLow0.70-1.30The [facility] SystemComment on above:Performed By: #### MG, PHOS, CH8 ####[facility] PATHOLOGY ZLSSHWWSEJ0447 [place], [address]HFXLQINDQ GFR (CKD-EPI)93 mL/min/1.73sqmNormal>=60 The [facility] SystemComment on above:Result Comment: 2020 CKD EPI [...] Inclusion of Race in Diagnosing Kidney Disease. English Journal of Kidney Diseases 2021;79(2):26 8-88.e1.2. N Engl J Med 2020 Vol. 385 Issue 19 Pages 6470-2373Performed By: #### CHI PRADO CH8 ####[facility] PATH[facility] NHPUKEUKGR8976 [place], [address]Vtertel [Mass/Vol]141 mg/bJSkbw58-719Voq [facility] CampusroHealth SystemComment on above:Performed By: #### CHI PRADO CH8 ####[facility] PATH[facility]Y SARMGAWGIU9783 [place], [address]Ikbvpfoil [Moles/Vol]4.1 mmol/LNormal 3.5-5.0The [facility] CampusroHealth SystemComment on above:Performed By: #### CHI PRADO CH8 ####[facility] PATHOLOG[facility] VESIQSCHYK4781 [place], Sodium [Moles/Vol]141 mmol/OTjmbhc103-423Xld [facility] CampusroHealth SystemComment on above: Performed By: #### CHI PRADO CH8 ####[facility] PATH[facility] CUPITNKYTK4386 [place], [address]Tdng nitrogen [Mass/Vol]16 mg/dLNormal7-25The [facility] CampusroHealth SystemComment on above:Performed By: #### CHI PRADO CH8 ####[facility] PATH[facility] BWZKHMBVQS0905 [place], [address]QJRZF GAS, ARTERIALon 53-11-3311YC ABE7.7 mmol/LHigh-2.0-3.0The [facility] CampusroHealth SystemComment on above:Performed By: #### CR BGA ####[facility] PATH[facility]Y FXDRCUSXWO0383 [place], [address]ZP LQQ709.4 mm NtTklb47.0-45.0The [facility] SystemComment on above:Performed By: #### CR BGA ####[facility] PATH[facility]Y NCJMFIAIWL9[address] [place] [address], [address]DF PHA7.440Normal 7.350-7.450The [facility] SystemComment on above:Performed By: #### CR BGA ####[facility] PATHOLOGY YQDBFNPVBI2755[address] [place] [address], [address]VT QD6929 mm FiXism40-931Ozz [facility] SystemComment on above:Performed By: #### CR BGA ####[facility] PATHOLOGY TEVGNCTRRR8107[address] [place] [address], [address]GFB2 (CATEGORY)70%NormalThe [facility] SystemComment on above: Performed By: #### CR BGA ####[facility] PATHOLOGY KYXGSAUBWC396[address] [place] [address], [address]ZDX6 (Bld) [Moles/Vol]32 mmol/NWtim17-78Isy [facility] CampusroHealth SystemComment on above:Performed By: #### CR BGA ####[facility] PATHOLOGY TGGLTQLYYY1524[address] [place] [address], [address]RMWBJLEHUGgojirLwt [facility] CampusroHealth SystemComment on above:Performed By: #### CR BGA ####[facility] PATHOLOGY QLDRYYWSNR99[address] [place] [address], [address]Eufsvs saturation in Blood99.4 %High95.0-99.0The [facility] CampusroHealth SystemComment on above:Performed By: #### CR BGA ####[facility] PATHOLOGY GXWCVKGBWR4178[address] [place] [address], [address]HZ ABE4.4 mmol/LHigh-2.0-3.0The [facility] SystemComment on above: Performed By: #### CR BGA ####[facility] PATHOLOGY FYHHDMYALK4316[address] [place] [address], [address]BC MDV337.7 mm SjLwck54.0-45.0The [facility] SystemComment on above:Performed By: #### CR BGA ####[facility] PATHOLOGY HZGWIQXSYR298[address] [place] [address], [address]YT PHA7.417Normal 7.350-7.450The [facility] SystemComment on above:Performed By: #### CR BGA ####S PATHOLOGY QIDPHSOYAE5196 [place], [address]AS YK3467 mm FnOvnj05-631Njr [facility] SystemComment on above:Performed By: #### CR BGA ####S PATHOLOGY DYHZHAXCUN7273 [place], [address]VNP2 (CATEGORY)40%NormalThe [facility] SystemComment on above: Performed By: #### CR BGA ####S PATHOLOGY ZYIJZMPKZJ1150 [place], [address]OFW8 (Bld) [Moles/Vol]29 mmol/OQlxr37-03Jxu [facility] CampusroHealth SystemComment on above:Performed By: #### CR BGA ####S PATHOLOGY WGUNDTRYDB2283 [place], [address]IRLBQgasShmnilFep [facility] SystemComment on above:Performed By: #### CR BGA ####[facility] PATHOLOGY UIPHKCVAOE6801[address] [place] [address], [address]Ignubh saturation in Blood98.7 %Ookcjq04.0-99.0The [facility] CampusroHealth SystemComment on above:Performed By: #### CR BGA ####[facility] PATHOLOGY OONEEZKKHN64[address] [place] [address], [address]NEKLZHFRQQ ALT PATH AH50on 17-33-9553HDHKZEHPDQ, ALT PATH, FUNC63 %of normNormal>=46The [facility] CampusroHealth SystemComment on above:Order Comment: Resulting Agency Address Site ID: MYM Name: [facility] Address: [address] [place] [address] Director: Jeff Tejada M.D. Ph.D. Result Comment: ADDITIONAL INFORMATION This test was developedand its performance characteristicsdetermined by [facility] in a manner consistent with CLIArequirements. This test has not been cleared or approved bythe U.S. Food and Drug Administration.Performed By: #### CMPAH50 ####[facility] Thxqukanm[address] [place], [place] [address]COMPLETE BLOOD COUNTon 60-56-2703Ksbsyaibvil distribution width (RBC) [Ratio]16.1 %High 11.5-14.5The [facility] SystemComment on above:Performed By: #### CBC ####[facility] PATHOLOGY TXNFFWABQX39[address] [place] [address], [address]Jobiptwqmo (Bld) [Volume fraction]27.7 %Low41.0-53.0The [facility] SystemComment on above: Performed By: #### CBC ####[facility] PATHOLOGY SXWAFQTHVJ24[address] [place] [address], [address]Mjuyeqsuby (Bld) [Mass/Vol]9.1 g/dLLow13.9-16.3The [facility] SystemComment on above:Performed By: #### CBC ####[facility] PATHOLOGY FGKPBUYUCS[address] [place] [address], [address]PRQ (RBC) [Entitic mass]31.1 rdJjwfqr97.0-34.0The [facility] SystemComment on above:Performed By: #### CBC ####[facility] PATHOLOGY GVOFXMTFMZ[address] [place] [address], [address]IOII (RBC) [Mass/Vol]32.9 g/fLZzxapu57.0-35.9The [facility] Comment on above:Performed By: #### CBC ####[facility] PATHOLOGY WCSVGEGAHL1035[address] [place] [address], [address]YVM (RBC) [Entitic vol]95 fLNormal 80-100The [facility] SystemComment on above:Performed By: #### CBC ####[facility] PATHOLOGY UAEMYUCRHH56[address] [place] [address], [address]Frdduhyi mean volume (Bld) [Entitic vol]6.1 fLLow7.5-11.2The [facility] SystemComment on above:Performed By: #### CBC ####[facility] PATHOLOGY GHHVXTGGAP5229[address] [place] [address], [address]Ilepmicwt (Bld) [#/Vol]588 10*3/dOZdax157-099Aky [facility] SystemComment on above:Performed By: #### CBC ####S PATHOLOGY WCFWWSWTAV8353 [place], [address]ZBE (Bld) [#/Vol]2.93 10*6/uLLow4.50-5.90The [facility] CampusroHealth SystemComment on above:Performed By: #### CBC ####S PATHOLOGY KYILLOWGAX8380 [place], [address]GYH (Bld) [#/Vol]15.2 10*3/uLHigh4.5-11.5The [facility] CampusroHealth SystemComment on above: Performed By: #### CBC ####S PATHOLOGY IFAUMYNHPI[address] [place] [address], [address]CVEYUFZQCpg 04-32-2230Tssvdffeb [Mass/Vol]1.9 mg/dLNormal1.9-2.7The [facility] SystemComment on above:Performed By: #### CHI PRADO, LLOYD8 ####S PATHOLOGY UIVZCZTAMT4855 [place], [place], [address]PHOSPHORUSon 60-09-8297Ovyrdpofh [Mass/Vol]3.0 mg/dLNormal2.5-5.0The [facility] SystemComment on above:Performed By: #### CHI PRADO, LLOYD8 ####S PATHOLOGY IBSNEHZAQD[address] [place] [address], [address]Hksjvjes Noteson 66-52-0554Vrtxblozpijea Authentication Interface Message TextNormThe [facility]ere [facility] CampusroHealth SystemTranscription Authentication Interface Message TextNormThe [facility] SystemXR ABDOMEN AP 1 VIEWon 09-88-8478JX ABDOMEN AP 1 VIEWNormalThe [facility] CampusroHealth SystemXR CHEST AP OR PA 1 VIEWon 03-31-8127OG CHEST AP OR PA 1 VIEW NormalThe [facility] CampusroHealth SystemXR Chest Single viewon 88-44-8488PCLQNFUTBMV: XR CHEST AP OR PA 1 VIEW [...] Chest Single viewOrdered By: Vignesh Higuera on 59-70-8212XwjgvNjpxdm Work Phone: [phone] Interactionon 77-75-4714Wncttcjnolzwe Authentication Interface Message TextNormalThe [facility] HospitalAngiodroid SystemBASIC METABOLIC PANELon 03-17-8364Gxroz gap [Moles/Vol]10 mmol/FXzmsjp17-56Prh MetAngiodroid SystemComment on above:Performed By: #### CH8, MG, PHOS, VANC R ####[facility] PATHOLOGY UDTVPLXVRQ0269 [place], [address]Fxkdoeh [Mass/Vol]8.4 mg/dLLow8.6-10.3The [facility] CampusroHealth SystemComment on above:Performed By: #### LLOYD8MG PHOS, VANC R ####[facility] PATHOLOGY ABHWDNOBWD3701 [place], [address]Jxeiwywq [Moles/Vol]102 mmol/JJkyfoe30-802Qcd [facility] CampusroHealth SystemComment on above:Performed By: #### LLOYD8MG PHOS, VANC R ####[facility] PATHOLOGY LWOOJJAYEY7453 [place], [address]KA7 [Moles/Vol]34 mmol/GVzvq41-43Lgt [facility] CampusroHealth SystemComment on above:Performed By: #### MG VERDE PHOS, VANC R ####[facility] PATHOLOGY YFWMVMJWTU5422 [place], [address]Yiswkvtbad [Mass/Vol]0.66 mg/dLLow0.70-1.30The [facility] CampusroHealth SystemComment on above:Performed By: #### MG VERDE PHOS, VANC R ####[facility] PATHOLOGY EXHTYOPKPQ8402 [place], [place], ESTIMATED GFR (CKD-EPI)93 mL/min/1.73sqmNormal>=60The [facility] SystemComment on above:Result Comment: 2020 CKD EPI [...] Inclusion of Race in Diagnosing Kidney Disease. English Journal of Kidney Diseases 2021;79(2):268-88.e1.2. N Engl J Med 1 Vol. 385 Issue 19 Pages 3061-1254Performed By: #### LLOYD8MG PHOS, VANC R ####[facility] PATHOLOGY ELQVPTCXAM1421 [place], [address]Stpbovx [Mass/Vol]89 mg/pCSxwelz22-994Ghq [facility] CampusroHealth SystemComment on above:Performed By: #### AMMON, CHI PRADO VANC R ####S PATHOLOGY SCQINQKLGE0[address] [place] [address], [address]Ruexsztoo [Moles/Vol]4.1 mmol/LNormal3.5-5.0The [facility] CampusroHealth SystemComment on above:Performed By: #### AMMON, CHI PRADO VANC R ####S PATHOLOGY GBKLTNDZPQ[address] [place] [address], Sodium [Moles/Vol]142 mmol/MPdxque050-011Ygh [facility] CampusroHealth SystemComment on above: Performed By: #### AMMON, CHI PRADO VANC R ####S PATHOLOGY WBZGAYJLJL[address] [place] [address], [address]Qgan nitrogen [Mass/Vol]20 mg/dLNormal 7-25The [facility] HospitalHealth SystemComment on above:Performed By: #### MG VERDE PHOS, VANC R ####[facility] PATHOLOGY XFYMVXUMSV96[address] [place] [address], [address]HRYQK GAS, ARTERIALon 36-47-3644BQ ABE9.0 mmol/LHigh-2.0-3.0The [facility] CampusroHealth SystemComment on above:Performed By: #### CR BGA ####[facility] PATHOLOGY TYKJIFSMIF[address] [place] [address], [address]UP LLA384.4 mm HgHigh 35.0-45.0The [facility] CampusroHealth SystemComment on above:Performed By: #### CR BGA ####S PATHOLOGY NSPEWUMPMU34[address] [place] [address], [address]CU PHA7.339Ezrc6.350-7.450The [facility] CampusroHealth SystemComment on above:Performed By: #### CR BGA ####S PATHOLOGY YGMRBIDMVH3607[address] [place] [address], [address]QA PO266 mm LvSkb97-738Yzv [facility] CampusroHealth SystemComment on above: Performed By: #### CR BGA ####S PATHOLOGY PUIENLOWTD9932[address] [place] [address], [address]NVJ3 (CATEGORY)35%NormalThe [facility] System Comment on above:Performed By: #### CR BGA ####[facility] PATHOLOGY ACOZVITOGF3852 [place], [address]JAO0 (Bld) [Moles/Vol]33 mmol/LHigh The [facility] SystemComment on above:Performed By: #### CR BGA ####[facility] PATHOLOGY NJZREJQJNG[address] [place] [address], [address]SHMIXyiv NormalThe [facility] SystemComment on above:Performed By: #### CR BGA ####[facility] PATHOLOGY CHMVFHZYMC[address] [place] [address], [address]Jqeuii saturation in Blood94.9 %Low95.0-99.0The [facility] SystemComment on above: Performed By: #### CR BGA ####[facility] PATHOLOGY DJSKZWRWMW264[address] [place] [address], [address]NLKUYWFD BLOOD COUNTon 76-01-2262Btdsftwjdrv distribution width (RBC) [Ratio]15.5 %High11.5-14.5The [facility] SystemComment on above:Performed By: #### CBC ####[facility] PATHOLOGY VNIWWUAUJM1305[address] [place] [address], [address]Ruusootwad (Bld) [Volume fraction]25.0 %Low 41.0-53.0The [facility] SystemComment on above:Performed By: #### CBC ####[facility] PATHOLOGY ABREPTAXIF6454[address] [place] [address], [address]Hybnyjftcr (Bld) [Mass/Vol]8.2 g/dLLow13.9-16.3The [facility] SystemComment on above: Performed By: #### CBC ####[facility] PATHOLOGY IIBAVRSEPV7[address] [place] [address], [address]UIX (RBC) [Entitic mass]31.5 qiVoeixo85.0-34.0The [facility] SystemComment on above:Performed By: #### CBC ####[facility] PATHOLOGY BDNUKEFIYM040[address] [place] [address], [address]MEAW (RBC) [Mass/Vol] 32.8 g/wQUhwyaz80.0-35.9The [facility] SystemComment on above:Performed By: #### CBC ####[facility] PATHOLOGY UPJLRILBTC[address] [place] [address], [address]BCH (RBC) [Entitic vol]96 vAOrwuce70-954Oto [facility] SystemComment on above:Performed By: #### CBC ####[facility] PATHOLOGY CPOGLQWPRS9006[address] [place] [address], [address]Rwtvjwol mean volume (Bld) [Entitic vol]6.2 fLLow 7.5-11.2The [facility] SystemComment on above:Performed By: #### CBC ####[facility] PATHOLOGY PAFNISVEYF8614[address] [place] [address], [address]Soqbmzznd (Bld) [#/Vol]517 10*3/vCOjvv932-878Oad [facility] CampusroHealth SystemComment on above: Performed By: #### CBC ####[facility] PATHOLOGY TNUBPWDVNC3659[address] [place] [address], [address]VKV (Bld) [#/Vol]2.61 10*6/uLLow4.50-5.90The [facility] CampusroHealth SystemComment on above:Performed By: #### CBC ####[facility] PATHOLOGY BMAHMKPADP5737[address] [place] [address], [address]BUO (Bld) [#/Vol]9.0 10*3/uLNormal4.5-11.5The [facility] CampusroHealth SystemComment on above:Performed By: #### CBC ####[facility] PATHOLOGY WBCWTNQOGP[address] [place] [address], [place] ABDOMEN/PELVIS W/ CONTRASTon 16-99-5183GM ABDOMEN/PELVIS W/ CONTRASTNormalThe [facility] CampusroShelby [facility] SystemMAGNESIUMon 24-96-4875Hqffbntfu [Mass/Vol]2.2 mg/dLNormal 1.9-2.7The [facility] CampusroHealth SystemComment on above:Performed By: #### CH8, MG, PHOS, VANC R ####[facility] PATHOLOGY LEEQCLTYJQ[address] [place] [address], [address]BEMEKNVJUGbq 07-05-9830Wcbhbslpc [Mass/Vol]3.0 mg/dLNormal2.5-5.0The [facility] SystemComment on above:Performed By: #### CH8MG PHOS, VANC R ####[facility] PATHOLOGY HKBRWTGPEL1088 [place], [place], Progress Noteson 97-51-0578Iokkgbmzqfzxi Authentication Interface Message Text NormalThe [facility] SystemTranscription Authentication Interface Message Text NormalThe [facility] SystemVANCOMYCIN RANDOMon 94-09-4303FXBE R10.4 ug/mLNormal 5.0-40.0The [facility] SystemComment on above:Performed By: #### CH8MG PHOS, VANC R ####[facility] PATHOLOGY JDHIAMRKSR5883 [place], [address]ZH CHEST AP OR PA 1 VIEWon 68-91-3930FH CHEST AP OR PA 1 VIEWNormalThe [facility] SystemXR Chest Single viewon 47-77-8616LTSNRRLCUXR: XR CHEST AP OR PA 1 VIEW [...] Chest Single viewOrdered By: Vignesh Higuera on 16-91-4922NymuzCufzrw Work Phone: [phone] Interactionon 33-70-0768Nmwerjupkxpwg Authentication Interface Message TextNormalThe [facility] HospitalAngiodroid SystemBASIC METABOLIC PANELon 17-20-6818Xyida gap [Moles/Vol]8 mmol/POkc62-26Awb [facility] Comment on above:Performed By: ###AMMON VALDEZ PHOS ####[facility] PATHOLOGY RCJOCTXACD3911 [place], [address]Ihycmhr [Mass/Vol]8.4 mg/dLLow8.6-10.3The [facility] CampusroShelby [facility] Hospital SystemComment on above:Performed By: ###AMMON VALDEZ PHOS ####[facility] PATHOLOGY EFOKMIVGFV6917 [place], [place], [address]Chloride [Moles/Vol]106 mmol/IQachca46-383Xlk [facility] SystemComment on above:Performed By: ###AMMON VALDEZ PHOS ####[facility] PATHOLOGY LKINZTPQFT6753 [place], [address]XO1 [Moles/Vol]34 mmol/YBuhd47-20Uwq [facility] SystemComment on above:Performed By: ###AMMON VALDEZ PHOS ####[facility] PATHOLOGY NHDTLPSJIX9530 [place], [address]Ooxajredwf [Mass/Vol]0.68 mg/dLLow0.70-1.30The [facility] SystemComment on above:Performed By: #### AMMON PRADO PHOS ####S PATHOLOGY ZZGETPKIOU6719 [place], [address]QJNUIABZK GFR (CKD-EPI)92 mL/min/1.73sqmNormal>=60 The [facility] SystemComment on above:Result Comment: 2020 CKD EPI [...] Inclusion of Race in Diagnosing Kidney Disease. English Journal of Kidney Diseases 2021;79(2):26 8-88.e1.2. N Engl J Med 1 Vol. 385 Issue 19 Pages 1518-0818Performed By: #### AMMON PRADO PHOS ####S PATHOLOGY CHLPUCKTFO5854 [place], [address]Gkgpgih [Mass/Vol]108 mg/oHNbltow47-194Tvh [facility] SystemComment on above:Performed By: #### AMMON PRADO PHOS ####[facility] PATHOLOGY CQKXTBFMFD8119 [place], [address]Vpojwljio [Moles/Vol]4.3 mmol/LNormal 3.5-5.0The [facility] SystemComment on above:Performed By: #### AMMON PRADO PHOS ####[facility] PATHOLOGY FGMTOACVBK0609 [place], Sodium [Moles/Vol]144 mmol/EZhbsxx011-339Eie [facility] SystemComment on above: Performed By: #### AMMON PRADO, RADS ####S PATHOLOGY CJVKCOHLMB4126 [place], [address]Mrhs nitrogen [Mass/Vol]24 mg/dLNormal7-25The [facility] CampusroHealth SystemComment on above:Performed By: #### MG, CH8, PHOS ####[facility] PATHOLOGY GHWRJRMPMT[address] [place] [address], [address]RKRFS GAS, ARTERIALon 58-68-7418MN ABE6.1 mmol/LHigh-2.0-3.0The [facility] SystemComment on above:Performed By: #### CR BGA ####[facility] PATHOLOGY GZPGPECRRL99[address] [place] [address], [address]AP RGD382.1 mm BtJttj34.0-45.0The [facility] SystemComment on above:Performed By: #### CR BGA ####[facility] PATHOLOGY DNUQKYGDNL1995[address] [place] [address], [address]MO PHA7.363Normal 7.350-7.450The [facility] CampusroHealth SystemComment on above:Performed By: #### CR BGA ####[facility] PATHOLOGY XWZKOIYIXP88[address] [place] [address], [address]IE KX5729 mm DpLkhs50-620Zuo [facility] CampusroHealth SystemComment on above:Performed By: #### CR BGA ####[facility] PATHOLOGY ETHCBKYFED6270[address] [place] [address], [address]XSB5 (CATEGORY)60%NormalThe [facility] CampusroHealth SystemComment on above: Performed By: #### CR BGA ####[facility] PATHOLOGY FNQHXWDMNP[address] [place] [address], [address]CXK1 (Bld) [Moles/Vol]32 mmol/SOsms62-84Eql [facility] CampusroHealth SystemComment on above:Performed By: #### CR BGA ####[facility] PATHOLOGY VATWVAICYO5754[address] [place] [address], [address]XWJIJuzcZvunjnHke [facility] CampusroHealth SystemComment on above:Performed By: #### CR BGA ####[facility] PATHOLOGY SFSHNYABPR8386[address] [place] [address], [address]Yphteg saturation in Blood99.6 %High95.0-99.0The [facility] CampusroHealth SystemComment on above:Performed By: #### CR BGA ####[facility] PATHOLOGY OWYPVAKULL[address] [place] [address], [address]QXNYCCSD BLOOD COUNTon 70-24-2666Cglxhpcqfig distribution width (RBC) [Ratio]15.9 %High11.5-14.5The [facility] HospitalHealth SystemComment on above:Performed By: #### CBC ####[facility] PATHOLOGY PNEAMJRPRG2[address] [place] [address], [address]Myisryhyak (Bld) [Volume fraction]25.7 %Low41.0-53.0The [facility] HospitalHealth SystemComment on above:Performed By: #### CBC ####[facility] PATHOLOGY HLXJROFGYX[address] [place] [address], [address]Jinaiuankw (Bld) [Mass/Vol]8.4 g/dLLow 13.9-16.3The [facility] SystemComment on above:Performed By: #### CBC ####[facility] PATHOLOGY PCZHCXNHIZ225[address] [place] [address], [address]HNE (RBC) [Entitic mass]31.7 ekRlksov95.0-34.0The [facility] SystemComment on above: Performed By: #### CBC ####[facility] PATHOLOGY NVOPKJAAXB30[address] [place] [address], [address]JJJS (RBC) [Mass/Vol]32.6 g/tHUuxqky03.0-35.9The [facility] SystemComment on above:Performed By: #### CBC ####[facility] PATHOLOGY NDQPOSCCCD[address] [place] [address], [address]HFW (RBC) [Entitic vol] 97 uJAnqaej65-190Wqi [facility] SystemComment on above:Performed By: #### CBC ####[facility] PATHOLOGY KUYSAOAVPO1812[address] [place] [address], Platelet mean volume (Bld) [Entitic vol]6.0 fLLow7.5-11.2The [facility] Comment on above:Performed By: #### CBC ####[facility] PATHOLOGY HBZNHCVJXM0987[address] [place] [address], [address]Dxyoidrzh (Bld) [#/Vol]527 10*3/uLHigh 150-400The [facility] SystemComment on above:Performed By: #### CBC ####S PATHOLOGY DUSXTBWTSN9163 [place], [address]UNY (Bld) [#/Vol]2.64 10*6/uLLow4.50-5.90The [facility] CampusroHealth SystemComment on above:Performed By: #### CBC ####[facility] PATHOLOGY PCZDKIXGSU2730[address] [place] [address], [address]ZMM (Bld) [#/Vol]10.1 10*3/uLNormal4.5-11.5The [facility] Comment on above:Performed By: #### CBC ####[facility] PATHOLOGY OZYUPWVHQU9[address] [place] [address], [address]PFJPIG ACIDon 08-94-8185ZY LACT0.8 mmol/LNormal0.5-1.6The [facility] SystemComment on above:Performed By: #### LACT ####[facility] PATHOLOGY JNWHOKKKVO[address] [place] [address], MAGNESIUMon 99-51-5282Opogjrxbo [Mass/Vol]2.3 mg/dLNormal1.9-2.7The [facility] SystemComment on above:Performed By: #### MG CH8, PHOS ####S PATHOLOGY BQNIFJBNSZ9047 [place], [address]IGZYYOOVDFtc 05-28-2024 Phosphate [Mass/Vol]3.7 mg/dLNormal2.5-5.0The [facility] SystemComment on above:Performed By: #### MG, CH8, PHOS ####S PATHOLOGY BTVSZDIGHZ4617[address] [place] [address], [address]Bdztispcewor 09-73-3567Bezxxpdipbdcv Authentication Interface Message TextNormSy[facility] SystemProgress Notes on 42-40-6119Njjseskbkyrlg Authentication Interface Message TextNormSycamore Medical Center SystemTranscription Authentication Interface Message TextSocial Work ICU Note Aware pt is intubated. Will assist with disposition planning pending pt's hospital course and medical team recs when pt is more medically appropriate. DARIEL Littlejohn, Jose MMet[facility]Health [facility] SystemRESPIRATORY CULTURE, MISC on 20-70-9984UNVYGQTQQRN CULTURE, MISCC RESP: No Growth GRAM STAIN: 3+ Polymorphonuclear Leukocytes No Squamous Epithelial Cells seen No organisms seenSt. John's Episcopal Hospital [facility] Shore SystemComment on above:Performed By: #### C RESP ####[facility] Asaankzvp8[address] [place], [place]XR CHEST AP OR PA 1 VIEWon 24-98-8708ZN CHEST AP OR PA 1 VIEWNoMetroHealth Parma Medical Center SystemXR Chest Single viewon 93-18-0371JYBMGEEVEBT: XR CHEST AP OR PA 1 VIEW [...] Chest Single viewOrdered By: Marek Driver on 55-43-8174VzcylNgxurx Work Phone: b TYPE NATRIURETIC PEPTIDEon 95-69-3798Ggjxsnvswiy peptide B (Bld) [Mass/Vol]28.0 pg/mLNormal<100.0The [facility] HospitalAngiodroid SystemComment on above:Performed By: #### BPL ####[facility] PATHOLOGY RXDWNGHAAC2470 [place], [address]TRUMF METABOLIC PANELon 27-94-1122Nzfxh gap [Moles/Vol]8 mmol/XJad00-28Cyn [facility] SystemComment on above:Performed By: #### CH8, MG, PHOS ####[facility] PATHOLOGY LKJEJXMZRA9287 [place], [address]Zppxhoa [Mass/Vol]8.7 mg/dLNormal8.6-10.3The [facility] Comment on above:Performed By: #### MG AMMON, PHOS ####[facility] PATHOLOGY MUZWOFDKOZ0297 [place], [address]Uxwradcg [Moles/Vol]106 mmol/ZEvvolb08-929Avt [facility] SystemComment on above:Performed By: #### MG AMMON, PHOS ####[facility] PATHOLOGY MRPXFBHAOK4161 [place], [address]QJ3 [Moles/Vol]34 mmol/MRoux18-35Lqu [facility] SystemComment on above:Performed By: #### MG AMMON, PHOS ####[facility] PATHOLOGY KTJPAEVKSY0453 [place], [address]Bqtudslcpr [Mass/Vol]0.72 mg/dLNormal 0.70-1.30The [facility] SystemComment on above:Performed By: #### MG AMMON, PHOS ####[facility] PATHOLOGY SCDWVHRJHR6508 [place], ESTIMATED GFR (CKD-EPI)91 mL/min/1.73sqmNormal>=60The [facility] SystemComment on above:Result Comment: 2020 CKD EPI [...] Inclusion of Race in Diagnosing Kidney Disease. English Journal of Kidney Diseases 2021;79(2):268-88.e1.2. N Engl J Med 2020 Vol. 385 Issue 19 Pages 3136-1578Performed By: #### MG AMMON, PHOS ####[facility] PATHOLOGY NKXLBKBGWB4431 [place], [address]Xqxmjqo [Mass/Vol]113 mg/uFRxnl43-036Wkr [facility] SystemComment on above:Performed By: #### MG AMMON, PHOS ####[facility] PATHOLOGY VXVBQMYPCT4616 [place], Potassium [Moles/Vol]4.8 mmol/LNormal3.5-5.0The [facility] Comment on above:Performed By: #### MG VERDE PHOS ####S PATHOLOGY URTIFZEDIK6587 [place], [address]Hkefii [Moles/Vol]143 mmol/XFhjcce099-927Bvm [facility] CampusroHealth SystemComment on above:Performed By: #### MG VERDE PHOS ####S PATHOLOGY RZYQMQKXKL2199 [place], [address]Szfi nitrogen [Mass/Vol]26 mg/dLHigh7-25The [facility] CampusroHealth SystemComment on above:Performed By: #### MG VERDE PHOS ####S PATHOLOGY WBBOSXKHIE5298 [place], [address]Atkvi gap [Moles/Vol]10 mmol/LNormal 10-20The [facility] SystemComment on above:Performed By: #### MG MIRELES CH8 ####S PATHOLOGY NPRSNBDVJR3209 [place], Calcium [Mass/Vol]9.0 mg/dLNormal8.6-10.3The [facility] CampusroHealth SystemComment on above: Performed By: ###MG GAGE CH8 ####S PATHOLOGY GRRTOXGTRN3262 [place], [address]Nowzafim [Moles/Vol]101 mmol/GMstcpf95-007Koz [facility] HospitalHealth SystemComment on above:Performed By: #### MG MIRELES CH8 ####[facility] PATHOLOGY ZVVMWQHXLB0124 [place], [address]LJ7 [Moles/Vol]38 mmol/ANtnx22-09Vld [facility] CampusroHealth SystemComment on above:Performed By: #### MG CHI, AMMON ####[facility] PATHOLOGY DTYRSPOSBZ2989 [place], [address]Nhgvuvitnr [Mass/Vol]0.66 mg/dLLow0.70-1.30The [facility] HospitalHealth SystemComment on above:Performed By: #### MG CHI CH8 ####[facility] PATHOLOGY SHRESMALCC7049 [place], [address]STYCACTHG GFR (CKD-EPI)93 mL/min/1.73sqmNormal>=60The [facility] SystemComment on above: Result Comment: 2020 CKD [...] Inclusion of Race in Diagnosing Kidney Disease. English Journal of Kidney Diseases 2021;79(2):268-88.e1.2. N Engl J Med 1 Vol. 385 Issue 19 Pages 2368-5136Performed By: #### MG CHI, CH8 ####[facility] PATHOLOGY YPILWBQVWA2290 [place], [address]Klpuivj [Mass/Vol]132 mg/oORcyf84-057Muf [facility] SystemComment on above:Performed By: #### MG CHI, CH8 ####S PATHOLOGY YPEDWZPGDU3795 [place], [place], 44 Potassium [Moles/Vol]4.0 mmol/LNormal3.5-5.0The [facility] Comment on above:Performed By: #### MG CHI, CH8 ####[facility] PATHOLOGY JMODOZYRYW2716 [place], [address]Vfeiph [Moles/Vol]145 mmol/GAhovsd677-000Egv [facility] SystemComment on above:Performed By: #### CHI MG, CH8 ####[facility] PATHOLOGY NNRWZPUUGO1075 [place], [address]Nrdv nitrogen [Mass/Vol]24 mg/dLNormal7-25The [facility] Comment on above:Performed By: #### MG CIH, CH8 ####[facility] PATHOLOGY TAIGMNFBPV9112 [place], [address]FMNMP CULTUREon 37-33-2219Jndimuea identified Cx Nom (Bld)C BLOOD: No GrowthNormalThe [facility] CampusroHealth SystemComment on above:Performed By: #### C BLOOD ####[facility] Uvkaksgff[address] [place], [place] [id number] identified Cx Nom (Bld)C BLOOD: No GrowthNormalThe [facility] SystemComment on above:Performed By: #### C BLOOD ####[address]BLOOD GAS, ARTERIALon [id number] ABE6.9 mmol/LHigh-2.0-3.0[facility] Campus[facility] SystemComment on above:Performed By: #### CR BGA ####[facility] PATHOLOGY TOBKIEOEPP[address] [place] [address], [id number] OQE827.5 mm YeXjdf13.0-45.0[facility] Campus[facility] SystemComment on above:Performed By: #### CR BGA ####[facility] PATHOLOGY ALOHGTFTHS[address] [place] [address], [id number] PHA7.355Normal 7.350-7.450[facility] SystemComment on above:Performed By: #### CR BGA ####[facility] PATHOLOGY WMCZJNDLEM[address] [place] [address], [address]MH PO284 mm YzZvlbgi66-932Dkv [facility] CampusroHealth SystemComment on above:Performed By: #### CR BGA ####[facility] PATHOLOGY SUTHGJIHPX[address] [place] [address], [address]MNV6 (CATEGORY)60%NormalThe [facility] CampusroHealth SystemComment on above: Performed By: #### CR BGA ####[facility] PATHOLOGY KTOBDNKKUZ[address] [place] [address], [address]MOS0 (Bld) [Moles/Vol]33 mmol/RIgxp85-09Jte [facility] CampusroHealth SystemComment on above:Performed By: #### CR BGA ####S PATHOLOGY GGEEGBGTPE[address] [place] [address], [address]QYBZCZJACKasrheRnc [facility] Campusro[facility] SystemComment on above:Performed By: #### CR BGA ####[facility] CDUTUHIJPL7137 [place], [address]Lsnnvq saturation in Blood96.8 %Lnrstl11.0-99.0The [facility] CampusroHealth SystemComment on above:Performed By: #### CR BGA ####[facility] PATHOLOGY TNXOMJOAEQ4[address] [place] [address], [address]KK ABE7.2 mmol/LHigh-2.0-3.0The [facility] SystemComment on above: Performed By: #### CR BGA ####[facility] PATHOLOGY GKHCBRCYEX[address] [place] [address], [address]WF BYE116.3 mm DmCsgl22.0-45.0The [facility] CampusroHealth SystemComment on above:Performed By: #### CR BGA ####[facility] PATHOLOGY WECPZZKDNK[address] [place] [address], [address]QG PHA7.357Normal 7.350-7.450The [facility] CampusroHealth SystemComment on above:Performed By: #### CR BGA ####[facility] PATHOLOGY RZNZAMTUJM230[address] [place] [address], [address]VV PO277 mm LhMxt60-211Lak [facility] CampusroHealth SystemComment on above:Performed By: #### CR BGA ####[facility] PATHOLOGY TLLJMNMJHR4468[address] [place] [address], FIO2 (CATEGORY)>5 LPMNormalThe [facility] CampusroHealth SystemComment on above:Result Comment: 6LPerformed By: #### CR BGA ####[facility] PATHOLOGY CLOGMOAFVJ[address] [place] [address], [address]SWD9 (Bld) [Moles/Vol]34 mmol/LHigh 21-28The [facility] CampusroHealth SystemComment on above:Performed By: #### CR BGA ####[facility] PATHOLOGY DHQVIDUJLQ6796[address] [place] [address], [address]JNDLEOJQE NormalThe [facility] CampusroHealth SystemComment on above:Result Comment: 18/06Performed By: #### CR BGA ####[facility] PATHOLOGY VILDMOSSRZ[address] [place] [address], [address]Wwbhyp saturation in Blood95.2 %Tuqjal76.0-99.0The [facility] CampusroS[facility] Comment on above:Performed By: #### CR BGA ####[facility] PATHOLOGY RJRXWDBIHS8559[address] [place] [address], [address]OK ABE5.4 mmol/LHigh-2.0-3.0The [facility] CampusroHealth SystemComment on above:Performed By: #### CR BGA ####[facility] PATHOLOGY ZHTQAYNJLZ4240[address] [place] [address], [address]HX NNC376.7 mm HgHigh 35.0-45.0The [facility] CampusroHealth SystemComment on above:Performed By: #### CR BGA ####[facility] PATHOLOGY TDQKXGLPUT0360[address] [place] [address], [address]ZP PHA7.750Ixq6.350-7.450The [facility] CampusroShelby [facility] SystemComment on above:Performed By: #### CR BGA ####[facility] PATHOLOGY SNAXMOIOXB[address] [place] [address], [address]ZO PO270 mm PyYue72-969Zor [facility] CampusroHealth SystemComment on above: Performed By: #### CR BGA ####[facility] PATHOLOGY STCVSPERXX3186[address] [place] [address], [address]MEH6 (CATEGORY)>5 LPMNormalThe [facility] CampusroS[facility] System Comment on above:Performed By: #### CR BGA ####[facility] PATHOLOGY XLGKTOGWJU3466[address] [place] [address], [address]YDJ5 (Bld) [Moles/Vol]32 mmol/LHigh 21-28The [facility] CampusroShelby [facility] Hospital SystemComment on above:Performed By: #### CR BGA ####[facility] PATHOLOGY GQHWZBDTOS377[address] [place] [address], [address]THTCFMUCS NormalThe [facility] SystemComment on above:Performed By: #### CR BGA ####[facility] PATHOLOGY WERJHLXLJK5867[address] [place] [address], [address]Npgmha saturation in Blood92.7 %Low95.0-99.0The [facility] SystemComment on above: Performed By: #### CR BGA ####[facility] PATHOLOGY PGTQPVXUCC[address] [place] [address], [address]SP ABE7.9 mmol/LHigh-2.0-3.0The [facility] Comment on above:Performed By: #### CR BGA ####[facility] PATHOLOGY ZDWFYEMHMH6915[address] [place] [address], [address]KN AIP140.4 mm HgCritically high 35.0-45.0The [facility] CampusroHealth SystemComment on above:Performed By: #### CR BGA ####[facility] PATHOLOGY GWRJDSNQLW[address] [place] [address], [address]GR PHA7.539Rvq6.350-7.450The [facility] CampusroHealth SystemComment on above:Performed By: #### CR BGA ####[facility] PATHOLOGY NCMDFQDZWR3222[address] [place] [address], [address]IM PO271 mm XbOdm16-059Sxj [facility] CampusroHealth SystemComment on above: Performed By: #### CR BGA ####[facility] PATHOLOGY QOKQBXWICS6304[address] [place] [address], [address]IYP4 (CATEGORY)>5 LPMNormalThe [facility] System Comment on above:Performed By: #### CR BGA ####[facility] PATHOLOGY HTCQTLRTUL8177[address] [place] [address], [address]VXO0 (Bld) [Moles/Vol]35 mmol/LHigh 21-28The [facility] CampusroHealth SystemComment on above:Performed By: #### CR BGA ####[facility] PATHOLOGY RFKDPTHYJI4758[address] [place] [address], [address]YOHDZNQYZ NormalThe [facility] CampusroShel[facility] Hospital SystemComment on above:Performed By: #### CR BGA ####[facility] PATHOLOGY RTYZMWOZKX3667[address] [place] [address], [address]Mpalcg saturation in Blood92.0 %Low95.0-99.0The [facility] CampusroHealth SystemComment on above: Performed By: #### CR BGA ####[facility] PATHOLOGY KWGDBDWEKA3147[address] [place] [address], [address]GUTHYSXU BLOOD COUNTon 69-50-1442Lurxntsksnv distribution width (RBC) [Ratio]16.0 %High11.5-14.5The [facility]Health SystemComment on above:Performed By: #### CBC ####[facility] PATHOLOGY NCVPBLQLXM4030 [place], [address]Qzrtlmgotk (Bld) [Volume fraction]28.3 %Low 41.0-53.0The [facility] CampusroHealth SystemComment on above:Performed By: #### CBC ####[facility] PATHOLOGY OPIYHOMOMN9997[address] [place] [address], [address]Wsagvmkgdb (Bld) [Mass/Vol]9.1 g/dLLow13.9-16.3The [facility] SystemComment on above: Performed By: #### CBC ####[facility] PATHOLOGY RABSURYUOJ3836[address] [place] [address], [address]CSU (RBC) [Entitic mass]31.5 enVtvuya41.0-34.0The [facility] CampusroHealth SystemComment on above:Performed By: #### CBC ####[facility] PATHOLOGY FNXHFZNDVE9555[address] [place] [address], [address]ADHP (RBC) [Mass/Vol] 32.1 g/qVCnkfin76.0-35.9The [facility] CampusroHealth SystemComment on above:Performed By: #### CBC ####[facility] PATHOLOGY ANYIJKZBFS1228[address] [place] [address], [address]API (RBC) [Entitic vol]98 eYIctgbp79-695Stz [facility] CampusroHealth SystemComment on above:Performed By: #### CBC ####[facility] PATHOLOGY QNKDDDCLEJ5070[address] [place] [address], [address]Rzkrgiif mean volume (Bld) [Entitic vol]6.1 fLLow 7.5-11.2The [facility] CampusroHealth SystemComment on above:Performed By: #### CBC ####[facility] PATHOLOGY VRJYRLRFVL3726[address] [place] [address], [address]Cgkltcyfc (Bld) [#/Vol]471 10*3/nGCbfi337-717Bub [facility] CampusroHealth SystemComment on above: Performed By: #### CBC ####[facility] PATHOLOGY JCQPPIBBXW8154[address] [place] [address], [address]JGX (Bld) [#/Vol]2.88 10*6/uLLow4.50-5.90The [facility] CampusroHealth SystemComment on above:Performed By: #### CBC ####[facility] PATHOLOGY AIYRFFNTCB[address] [place] [address], [address]EZK (Bld) [#/Vol]10.7 10*3/uLNormal4.5-11.5The [facility] SystemComment on above:Performed By: #### CBC ####[facility] PATHOLOGY SIFDJBBWKT8[address] [place] [address], Erythrocyte distribution width (RBC) [Ratio]15.7 %High11.5-14.5The [facility] SystemComment on above:Performed By: #### CBC ####[facility] PATHOLOGY KXTQNIGNDH[address] [place] [address], [address]Tfabmdcesi (Bld) [Volume fraction]32.1 %Low41.0-53.0The [facility] CampusroHealth SystemComment on above:Performed By: #### CBC ####[facility] PATHOLOGY VNRXFVPKLH5188[address] [place] [address], Hemoglobin (Bld) [Mass/Vol]10.6 g/dLLow13.9-16.3The [facility] Hospital[facility] SystemComment on above:Performed By: #### CBC ####[facility] PATHOLOGY VBTOTNNCTK3057[address] [place] [address], [address]REU (RBC) [Entitic mass]31.9 knZevxon61.0-34.0The [facility] Hospital[facility] SystemComment on above:Performed By: #### CBC ####[facility] PATHOLOGY LFLWOZEKYK5058[address] [place] [address], [address]VHMX (RBC) [Mass/Vol] 32.9 g/qTQqugbg09.0-35.9The [facility] SystemComment on above:Performed By: #### CBC ####[facility] PATHOLOGY LNORYYYUZU0980[address] [place] [address], [address]XUK (RBC) [Entitic vol]97 iBYenkbz55-020Hbr [facility] SystemComment on above:Performed By: #### CBC ####[facility] PATHOLOGY XWYWNMUIKT[address] [place] [address], [address]Vqtkihfb mean volume (Bld) [Entitic vol]6.3 fLLow 7.5-11.2The [facility] SystemComment on above:Performed By: #### CBC ####S PATHOLOGY EKTZDTXJXD9837 [place], [address]Pwufmdifn (Bld) [#/Vol]517 10*3/wWNgvr446-942Pti [facility] SystemComment on above: Performed By: #### CBC ####S PATHOLOGY MWQHJGXPOG4913 [place], [address]TGO (Bld) [#/Vol]3.31 10*6/uLLow4.50-5.90The [facility] SystemComment on above:Performed By: #### CBC ####[facility] PATHOLOGY PWCSSGGSVE3059 [place], [address]BNG (Bld) [#/Vol]11.2 10*3/uLNormal4.5-11.5The [facility] SystemComment on above:Performed By: #### CBC ####[facility] PATHOLOGY WEVDNUVKDP7296 [place], [place], HIGH SENSITIVITY TROPONIN Ion 80-56-1649OH TROPONIN I11 ng/LNormal<=15The [facility] SystemComment on above:Order Comment: Elevated troponin can [...] provider judgement.Performed By: #### HSTRP ####[facility] PKTSRUSSFD9907 [place], [address]NOLUKCGHZhy 05-27-2024 Magnesium [Mass/Vol]2.3 mg/dLNormal1.9-2.7The [facility] CampusroHealth SystemComment on above:Performed By: #### CH8, MG, PHOS ####[facility] EZDLDQMOJT87[address] [place] [address], [address]Afcfsydmg [Mass/Vol]2.3 mg/dLNormal 1.9-2.7The [facility] SystemComment on above:Performed By: #### PHOS, MG, CH8 ####[facility] WJKCANNRHW1745 [place], [place], PHOSPHORUSon 07-90-8971Oziltupjd [Mass/Vol]3.6 mg/dLNormal2.5-5.0The [facility] CampusroHealth SystemComment on above:Performed By: #### CH8, MG, PHOS ####[facility] UZXWGEYVQC6544[address] [place] [address], [address]Dwdixrjdv [Mass/Vol]3.5 mg/dLNormal2.5-5.0The [facility] CampusroHealth SystemComment on above:Performed By: #### PHOS, MG, CH8 ####[facility] TBGLWURZXK3242 [place], [address]Semetkrdkqpz 96-20-0269Lxqvxvmtiloiy Authentication Interface Message TextNo[facility] SystemTranscription Authentication Interface Message TextNo[facility] SystemTranscription Authentication Interface Message TextNo[facility] SystemProgress Noteson 34-85-5677Lulorqhjgogzx Authentication Interface Message TextSt. [facility] SystemTranscription Authentication Interface Message [id number]: 30mg etomidate, 100mg succ 1553: #7.5 ETT, 22 @ lip line; positive color change; bilateral breath sounds presentNoMetroHealth [facility] SystemTranscription Authentication Interface Message TextNo[facility] SystemTranscription Authentication Interface Message TextSt. [facility] SystemURINALYSIS WITH REFLEX CULTURE PERFORMABLEon 47-25-2550Udwofie Ql (U)NegativeNormalNegativeThe [facility] SystemComment on above:Order Comment: A negative [...] for UTI around 50%)Performed By: #### urinalysiswcul ####[facility] BWVGJYWXQF3172 [place], [place], #### C URINE ####[facility] Vlvwbhklf5897 [place], [place]GRANULAR CAST-5NoMet[facility]Health [facility] SystemComment on above:Order Comment: A [...] for UTI around 50%)Performed By: #### urinalysiswcul ####[facility] PATHOLOGY DKNMXMAYIU2587 [place], [place], #### C URINE ####[facility] Hwunsmkjq8188 [place], [place]Protein (U) [Mass/Vol]100 mg/dLAbnormal NegativeThe [facility] SystemComment on above:Order Comment: A negative [...] for UTI around 50%)Performed By: #### urinalysiswcul ####[facility] PATHOLOGY AGSPKUVQDZ5674[address] [place] [address], #### C URINE ####[facility] Cngubjibt[address] [place], [place] [address] SQUAMOUS RDTFVUCMFM0-8Bghhzb4-22Hng [facility] SystemComment on above:Order Comment: A negative [...] for UTI around 50%)Performed By: #### urinalysiswcul ####[facility] PATHOLOGY FEDQJZQVMP1146[address] [place] [address], #### C URINE ####[address] APPEARTurbidNormalClearThe [facility] SystemComment on above: Order Comment: A [...] for UTI around 50%)Performed By: #### urinalysiswcul ####[facility] PATHOLOGY RVOXXMAKDS5636[address] [place] [address], #### C URINE ####[facility] Ozfvbagmw[address] [place] [address]U BACTERIAFewNormalThUniversity [facility]als [facility] SystemComment on above:Order Comment: A [...] around 50%)Performed By: #### urinalysiswcul ####S PATHOLOGY ZISQYDVHMU8732[address] [place] [address], #### C URINE ####[facility] Ldgccuhok[address] [place] [address]U BILINegativeNormalNegativeHocking Valley Community Hospital SystemComment on above:Order Comment: A negative [...] for UTI around 50%)Performed By: #### urinalysiswcul ####[facility] HFHXGBYFWR0123 [place], [place], #### C URINE ####[facility] Tcmrcrbpe[address] [place], [place] [address]U BLOODNegativeNormalNegativeHocking Valley Community Hospital SystemComment on above:Order Comment: A negative [...] for UTI around 50%)Performed By: #### urinalysiswcul ####[facility] PATHOLOGY SSFEAOEMBJ7528[address] [place] [address], #### C URINE ####[facility] Mzrlcahwx8[address] [place], [place] [address]U COLORYellowNormalColorlessThe [facility] SystemComment on above:Order Comment: A negative [...] for UTI around 50%)Performed By: #### urinalysiswcul ####[facility] PATHOLOGY UWMNWLSKHV8937 [place], [place], #### C URINE ####[facility] Kszrxzbtw1425[address] [place], [place] [address]U HY CAST3-5NoMet[facility]Health [facility] SystemComment on above:Order Comment: A [...] for UTI around 50%)Performed By: #### urinalysiswcul ####[facility] PATHOLOGY AWLVAAGYHS3675 [place], [place], #### C URINE ####[facility] Jkkvkwfcd06[address] [place], [place] [address]U KETONENegativeNormalNegativeThe [facility] SystemComment on above:Order Comment: A negative [...] for UTI around 50%)Performed By: #### urinalysiswcul ####[facility] PATHOLOGY LBDDREUMLF3543 [place], [place], #### C URINE ####[address] LEUKNegativeNormalNegativeThe [facility] SystemComment on above:Order Comment: A negative [...] for UTI around 50%)Performed By: #### urinalysiswcul ####[facility] PATHOLOGY JQIZGVXUNM4454 [place], [place], #### C URINE ####[facility] Ogtkgyyxb7[address] [place], [place] [address]U MUCOUSPresentNormalThe [facility] SystemComment on above:Order Comment: A negative [...] for UTI around 50%)Performed By: #### urinalysiswcul ####[facility] PATHOLOGY UQCNRAIRZU5854[address] [place] [address], #### C URINE ####[address] NITRITENegativeNormalNegativeThe [facility] SystemComment on above:Order Comment: A negative [...] for UTI around 50%)Performed By: #### urinalysiswcul ####[facility] PATHOLOGY QTVJJQOQRH4909[address] [place] [address], #### C URINE ####[facility] Cnjoulyxl119[address] [place], [place] [address]U PH6.8Xwirqk2.0-8.0The [facility] SystemComment on above:Order Comment: A negative [...] for UTI around 50%)Performed By: #### urinalysiswcul ####[facility] PATHOLOGY VRVWYKIXAO1051 [place], [place], #### C URINE ####[address] EBL14-03Fgiilgpj2-3Aeu [facility] SystemComment on above:Order Comment: A negative [...] for UTI around 50%)Performed By: #### urinalysiswcul ####[facility] PATHOLOGY EALTBKNVFH8380[address] [place] [address], #### C URINE ####[facility] Ycdldtxsg[address] [place], [place] [address]U SG1.031High<=1.030The [facility] SystemComment on above:Order Comment: A negative [...] for UTI around 50%)Performed By: #### urinalysiswcul ####[facility] PATHOLOGY ABNQNQBLPR7[address] [place] [address], #### C URINE ####[address] UROBILI3.0 mg/dLAbnormalNegativeThe [facility] SystemComment on above:Order Comment: A negative [...] for UTI around 50%)Performed By: #### urinalysiswcul ####[facility] PATHOLOGY OYJKRAGJCY[address] [place] [address], #### C URINE ####[facility] Wqnfzpnml[address] [place], [place] [address]U LGW9-45Dsqfaftv7-4Ihq [facility] SystemComment on above:Order Comment: A negative [...] for UTI around 50%)Performed By: #### urinalysiswcul ####[facility] PATHOLOGY KEEZMQSKUX1167[address] [place] [address], #### C URINE ####[facility] Qviqdlazg[address] [place], [place] [id number] CULTUREon 46-46-0674Zdxuwvjw identified Cx Nom (U)C URINE: No growth of greater than 1,000 CFU/mlNormalThe [facility] SystemComment on above:Performed By: #### urinalysiswcul ####[facility] PATHOLOGY OFKXSTHQLF4615[address] [place] [address], #### C URINE ####[facility] Iroxkqwlb[address] [place], [place] [id number] ABDOMEN AP 1 VIEWon 73-81-6025VT ABDOMEN AP 1 VIEWNormalThe [facility] SystemXR CHEST AP OR PA 1 VIEWon 50-21-1774AW CHEST AP OR PA 1 VIEWNormalThe [facility] SystemXR CHEST AP OR PA 1 VIEWNormalThe [facility] SystemXR CHEST AP OR PA 1 VIEWNormalThe [facility] SystemXR CHEST AP OR PA 1 VIEWNormalThe [facility] SystemXR Chest Single viewon 42-98-6198DPOIAMWAMOX: XR CHEST AP OR PA 1 VIEW [...] Chest Single viewOrdered By: Chema Garvey on 80-77-2905VgvplKkxjmu Work Phone: assessment AND Plan Noteon 35-45-0693Rtezfnhapezhg Authentication Interface Message Text-likely in setting of anticholinergics and critical illness -last BM 05/23, patient passing gas this morning Plan: -continue senna dailyNormalThe [facility] SystemTranscription Authentication Interface Message Text-in setting of acute hypoxic respiratory failure and pneumothorax -next of kin is Ilana Michelle (spouse) and then son Chente Vaughn (numbers in chart) -did not address code statusNormalThe [facility] SystemTranscription Authentication Interface Message Text-in setting of pneumothrorax and rib fracturesNormalThe [facility] SystemTranscription Authentication Interface Message Text-appears to be improving on imagingNormalThe [facility] General Contractor Authentication Interface Message Text-now s/p rib plating and rib block, likely cause of hypoxic respiratory failureNormalThe [facility] General Contractor Authentication Interface Message TextNormalThe [facility] BASIC METABOLIC PANELon 19-54-6688Tcyyc gap [Moles/Vol]13 mmol/XJshpds50-19Hpb [facility] SystemComment on above:Performed By: #### CHI PRADO CH8 ####[facility] KHKNFWZOCW7974 [place], [address]Npbauig [Mass/Vol]8.3 mg/dLLow8.6-10.3The [facility] SystemComment on above:Performed By: #### CHI PRADO CH8 ####[facility] YYVTWUXGCC4359 [place], [address]Mvqykqjy [Moles/Vol]102 mmol/MVvngad39-369Mzf [facility] SystemComment on above:Performed By: #### CHI PRADO CH8 ####[facility] QPYKGFBFPU6006 [place], [address]WQ8 [Moles/Vol]31 mmol/NEjcgas95-68Mxa [facility] CampusroHealth SystemComment on above:Performed By: #### CHI PRADO CH8 ####[facility] XJWDXIOKVX1354 [place], [address]Azndazrswu [Mass/Vol]0.66 mg/dLLow0.70-1.30The [facility] SystemComment on above:Performed By: #### CHI PRADO CH8 ####[facility] PAHFLXODOP2622 [place], [address]JAGWAWGQQ GFR (CKD-EPI)93 mL/min/1.73sqmNormal>=60The [facility] HospitalHealth SystemComment on above: Result Comment: 2020 CKD [...] Inclusion of Race in Diagnosing Kidney Disease. English Journal of Kidney Diseases 2021;79(2):268-88.e1.2. N Engl J Med 1 Vol. 385 Issue 19 Pages 0831-8152Performed By: #### CHI PRADO CH8 ####[facility] MREZIOMPHO0986 [place], [address]Qzonqsb [Mass/Vol]91 mg/tNQevsmn78-824Ahm [facility] SystemComment on above:Performed By: #### CHI PRADO CH8 ####[facility] ATGSWISTMI4370 [place], [place], [address] Potassium [Moles/Vol]3.7 mmol/LNormal3.5-5.0The [facility] Comment on above:Performed By: #### CHI PRADO CH8 ####[facility] UYHDEOEXEA0511 [place], [address]Ufnbox [Moles/Vol]142 mmol/DVjvgou299-171Ccc [facility] SystemComment on above:Performed By: #### CHI PRADO CH8 ####[facility] WXPICXXAVO2223 [place], [place], [address] 109-1997Urea nitrogen [Mass/Vol]23 mg/dLNormal7-25The [facility] Campusro[facility] SystemComment on above:Performed By: #### CHI PRADO CH8 ####[facility] PATHOLOGY DIPCKCWBWU[address] [place] [address], [address]RTODKAXK BLOOD COUNTon 05-26-2024 Erythrocyte distribution width (RBC) [Ratio]15.5 %High11.5-14.5The [facility] Campusro[facility] SystemComment on above:Performed By: #### CBC ####[facility] PATHOLOGY MMMFSTYRWJ[address] [place] [address], [address]Yhgqfogduq (Bld) [Volume fraction]29.3 %Low41.0-53.0The [facility] CampusroHealth SystemComment on above:Performed By: #### CBC ####[facility] PATHOLOGY FPQVPLNOEF[address] [place] [address], Hemoglobin (Bld) [Mass/Vol]9.5 g/dLLow13.9-16.3The [facility] CampusroHealth SystemComment on above:Performed By: #### CBC ####[facility] PATHOLOGY PIBUQVPTEK[address] [place] [address], [address]KSV (RBC) [Entitic mass]31.4 jvFtgpxk43.0-34.0The [facility] CampusroHealth SystemComment on above:Performed By: #### CBC ####[facility] PATHOLOGY IEVOGPPFDS6414 [place], [address]AETM (RBC) [Mass/Vol] 32.6 g/eEFvedzw99.0-35.9The [facility] Campusro[facility] SystemComment on above:Performed By: #### CBC ####[facility] PATHOLOGY DGRSKCYNLS9155 [place], [address]UZB (RBC) [Entitic vol]96 yECdcsgb57-393Uxy [facility] Campusro[facility] SystemComment on above:Performed By: #### CBC ####[facility] PATHOLOGY WGGCBOLVXT[address] [place] [address], [address]Jxqhnyec mean volume (Bld) [Entitic vol]6.2 fLLow 7.5-11.2The [facility] CampusroHealth SystemComment on above:Performed By: #### CBC ####S PATHOLOGY GOAGTFMVQC5062 [place], [address]Dthfqdcqk (Bld) [#/Vol]439 10*3/xAAqfm805-855Wje [facility] CampusroHealth SystemComment on above: Performed By: #### CBC ####S PATHOLOGY TUZMULFMJP99[address] [place] [address], [address]YKS (Bld) [#/Vol]3.04 10*6/uLLow4.50-5.90The [facility] Campusro[facility] SystemComment on above:Performed By: #### CBC ####[facility] PATHOLOGY OJXEUEHXJC1300 [place], [address]ODO (Bld) [#/Vol]8.8 10*3/uLNormal4.5-11.5The [facility] CampusroHealth SystemComment on above:Performed By: #### CBC ####[facility] PATHOLOGY CVILAUVOOK[address] [place] [address], Consultson 56-86-2627Ediynbkuxbkpz Authentication Interface Message TextNormal The [facility] CampusroHealth SystemMAGNESIUMon 84-80-5658Vjqhtthse [Mass/Vol]2.2 mg/dLNormal 1.9-2.7The [facility] CampusroHealth SystemComment on above:Performed By: #### CHI PRADO, LLOYD8 ####S PATHOLOGY WIDYVUKZWV[address] [place] [address], PHOSPHORUSon 32-62-7556Zoulvvcsv [Mass/Vol]3.4 mg/dLNormal2.5-5.0The [facility] CampusroHealth SystemComment on above:Performed By: #### CHI PRADO, CH8 ####S PATHOLOGY PDUPSNHVVA[address] [place] [address], [address]Babxekld Noteson 37-83-4942Wohafmdpiacbb Authentication Interface Message TextNormalThe [facility] SystemTranscription Authentication Interface Message TextNormalThe [facility] CampusroHealth SystemTranscription Authentication Interface Message TextNormalThe [facility] SystemXR CHEST AP OR PA 1 VIEWon 92-95-6562AW CHEST AP OR PA 1 VIEW NormalThe [facility] SystemXR Chest Single viewon 28-82-8763ZBTZDEOTDYR: XR CHEST AP OR PA 1 VIEW [...] prior exam. MACRO: None [facility] Study observation (narrative)MetroAngiodroidXR Chest Single viewOrdered By: Chema Garvey on 76-03-7054IaouoYmxhuj Work Phone: [phone] Interactionon 24-91-6146Uwyaffakiqjgo Authentication Interface Message TextNormalThe [facility] SystemAssessment AND Plan Noteon 21-18-4435Ctstxibgantdn Authentication Interface Message Text- appears to be improving on imagingNoMet[facility] SystemTranscription Authentication Interface Message Text-in setting of acute hypoxic respiratory failure and pneumothorax -next of kin is Ilana Michelle (spouse) and then son Chente Vaughn (numbers in chart) -did not address code statusNoMetroHealth [facility] SystemTranscription Authentication Interface Message Text-likely in setting of anticholinergics and critical illness -last BM 05/23 Plan: -change senna to daily, if no BM today increase to bid -consider bisacodyl suppository prnNormalThe [facility] SystemTranscription Authentication Interface Message Text-in setting of pneumothrorax and rib fracturesNoMet[facility] SystemTranscription Authentication Interface Message Text-now s/p rib plating and rib block, likely cause of hypoxic respiratory failureNoMet[facility] SystemTranscription Authentication Interface Message TextNoMet[facility] SystemBASIC METABOLIC PANELon 78-90-2584Tzqci gap [Moles/Vol]10 mmol/BDicbcc23-69Gmk [facility] SystemComment on above:Performed By: #### MG, CH8, PHOAlfonzo ####[facility] PJINBEIFUO9055 [place], [address]Hnjbrjn [Mass/Vol]8.2 mg/dLLow8.6-10.3 The [facility] SystemComment on above:Performed By: #### MG, CH8, PHOS ####[facility] MLZNGCLNDE5205 [place], [address]Ncxtoivb [Moles/Vol]100 mmol/JLvotdg03-133Pio [facility] SystemComment on above: Performed By: #### MG, CH8, PHOS ####[facility] AKKLRMNARZ0025 [place], [address]EX3 [Moles/Vol]33 mmol/CDebg98-61Esw [facility] SystemComment on above:Performed By: #### MG, CH8, PHOS ####[facility] SKRWFAYVXK0198 [place], [address]Yonlakigre [Mass/Vol] 0.68 mg/dLLow0.70-1.30The [facility] SystemComment on above:Performed By: #### AMMON PRADO PHOS ####[facility] UTXEXWACFS0018 [place], [address]KMETZMVHQ GFR (CKD-EPI)92 mL/min/1.73sqmNormal>=60The [facility] CampusroHealth SystemComment on above:Result Comment: 2020 CKD EPI [...] Inclusion of Race in Diagnosing Kidney Disease. English Journal of Kidney Diseases 2021;79(2):268-88.e1.2. N Engl J Med 2020 Vol. 385 Issue 19 Pages 0196-5408Performed By: #### AMMON PRADO PHOS ####[facility] ZJEQCXFIDQ3695 [place], [address]Spwdmjj [Mass/Vol]80 mg/kLEwycza99-315Zeu [facility] Campusro[facility] SystemComment on above:Performed By: #### AMMON PRADO PHOS ####[facility] GOLJCASGDG7962 [place], [address]Oakqdswvl [Moles/Vol]4.3 mmol/LNormal3.5-5.0The [facility] CampusroHealth SystemComment on above:Result Comment: Hemolysis presentPerformed By: #### AMMON PRADO, PHOS ####[facility] YKIIQTXEVE2039 [place], [address]Icvkqh [Moles/Vol]139 mmol/MNiwpzl693-236Ouc [facility] Campusro[facility] SystemComment on above:Performed By: #### AMMON PRADO, RADS ####[facility] NSDLJFHRIP4711 [place], [address]Fvoz nitrogen [Mass/Vol]25 mg/dLNormal7-25The [facility] Campusro[facility] SystemComment on above:Performed By: #### AMMON PRADO, PHOS ####[facility] FRGLUBEWWJ92[address] [place] [address], [address]WWRZR GAS, ARTERIALon 36-21-4620BL ABE4.7 mmol/L High-2.0-3.0The [facility] CampusroHealth SystemComment on above:Performed By: #### CR BGA ####[facility] PATHOLOGY QKUDRYQAHW49[address] [place] [address], [address]WX QWR978.5 mm KxMkff43.0-45.0The [facility] CampusroHealth SystemComment on above:Performed By: #### CR BGA ####[facility] PATHOLOGY IJVIULUYRJ12[address] [place] [address], [address]OM PHA7.928Cxvofo7.350-7.450The [facility] CampusroHealth SystemComment on above: Performed By: #### CR BGA ####[facility] PATHOLOGY DEVDMBHNHD[address] [place] [address], [address]ZR PO264 mm NrBng47-922Inl [facility] Comment on above:Performed By: #### CR BGA ####[facility] PATHOLOGY WQNIEUAQYH16[address] [place] [address], [address]WTZ9 (CATEGORY)50%NormalThe [facility]Health SystemComment on above:Performed By: #### CR BGA ####[facility] PATHOLOGY HNKUMLAZXQ7066[address] [place] [address], [address]KBR4 (Bld) [Moles/Vol] 29 mmol/MVbpn53-53Ruv [facility] Campusro[facility] SystemComment on above:Performed By: #### CR BGA ####[facility] PATHOLOGY JBBKAGANFH[address] [place] [address], MODENasal CanulaNormalThe [facility] SystemComment on above:Result Comment: Highflow 40 LitersPerformed By: #### CR BGA ####[facility] PATHOLOGY EXRBEYCMWV9754[address] [place] [address], [address]Pufkhr saturation in Blood91.8 %Low 95.0-99.0The [facility] SystemComment on above:Performed By: #### CR BGA ####[facility] PATHOLOGY YNCSEXPYAB234[address] [place] [address], [address]XS ABE5.3 mmol/LHigh-2.0-3.0The [facility] CampusroHealth SystemComment on above:Performed By: #### CR BGA ####[facility] PATHOLOGY YLNEEXTSNI7248[address] [place] [address], [address]SR MJL849.7 mm RrFkgxfa67.0-45.0The [facility] CampusroHealth SystemComment on above:Performed By: #### CR BGA ####[facility] PATHOLOGY PLACNWQJFP3198[address] [place] [address], [address]JD PHA7.921Rdsrgs7.350-7.450The [facility] Comment on above:Performed By: #### CR BGA ####[facility] PATHOLOGY OVLXILZXMF3606[address] [place] [address], [address]PM PO270 mm EvGhn56-929Wux [facility] SystemComment on above:Performed By: #### CR BGA ####[facility] PATHOLOGY SDHSJCQAKJ[address] [place] [address], [address]ZBB2 (CATEGORY)44% NormalThe [facility] HospitalHealth SystemComment on above:Result Comment: 6 LPMPerformed By: #### CR BGA ####[facility] PATHOLOGY PEZTJGSDZN3796[address] [place] [address], [address]MTO6 (Bld) [Moles/Vol]30 mmol/NIkky80-55Vgf [facility] SystemComment on above:Performed By: #### CR BGA ####[facility] PATHOLOGY FGSKGJALZS[address] [place] [address], [address]LGJASEENEGcspikHzv [facility] SystemComment on above:Result Comment: 18/04Performed By: #### CR BGA ####[facility] PATHOLOGY SBEKUXKVBL08[address] [place] [address], [address]Yaxdjg saturation in Blood94.5 %Low95.0-99.0The [facility] SystemComment on above:Performed By: #### CR BGA ####[facility] PATHOLOGY JTAOJDWMVG6156[address] [place] [address], [address]LR ABE6.1 mmol/LHigh-2.0-3.0The [facility] SystemComment on above: Performed By: #### CR BGA ####[facility] PATHOLOGY MNSSQKFTJE1446[address] [place] [address], [address]WV ICH244.7 mm KoZrpnzv84.0-45.0The [facility] SystemComment on above:Performed By: #### CR BGA ####[facility] PATHOLOGY HAPYEJAOFF8548[address] [place] [address], [address]LF PHA7.454High 7.350-7.450The [facility] CampusroHealth SystemComment on above:Performed By: #### CR BGA ####[facility] PATHOLOGY WTWQKWVZXV0030[address] [place] [address], [address]GU PO264 mm JrHvz13-359Ges [facility] Campusro[facility] SystemComment on above:Performed By: #### CR BGA ####[facility] PATHOLOGY HJKLIWCXZQ9918[address] [place] [address], FIO2 (CATEGORY)5 LPMNormalThe [facility] CampusroHealth SystemComment on above:Result Comment: 6LPMPerformed By: #### CR BGA ####[facility] PATHOLOGY DNVSFFXKMX07[address] [place] [address], [address]ZYV7 (Bld) [Moles/Vol]30 mmol/PIghu47-04Szk [facility] Campusro[facility] SystemComment on above:Performed By: #### CR BGA ####[facility] PATHOLOGY PQGDXBOUYM7245[address] [place] [address], [address]DNNPGAVROWgevlwSzy [facility] Campusro[facility] SystemComment on above:Performed By: #### CR BGA ####[facility] PATHOLOGY SPEEZYONFK[address] [place] [address], [address]Swzamw saturation in Blood93.1 %Low95.0-99.0The [facility] CampusroHealth SystemComment on above:Performed By: #### CR BGA ####[facility] PATHOLOGY XJSLYXQQJG5458[address] [place] [address], [address]NVDPHMNY BLOOD COUNTon 47-48-3512Hlaipuiljfb distribution width (RBC) [Ratio]15.7 %High11.5-14.5The [facility] Campusro[facility] SystemComment on above:Performed By: #### CBC ####[facility] PATHOLOGY AVTVOOBNGH9776[address] [place] [address], [address]Sufmftkxfl (Bld) [Volume fraction]27.5 %Low41.0-53.0The [facility] SystemComment on above:Performed By: #### CBC ####[facility] PATHOLOGY RWHTKMPVMN8413[address] [place] [address], [address]Uuatipmsxq (Bld) [Mass/Vol]9.1 g/dLLow 13.9-16.3The [facility] SystemComment on above:Performed By: #### CBC ####[facility] PATHOLOGY XAKRDZLHDP[address] [place] [address], [address]TVV (RBC) [Entitic mass]31.7 bfUmwitq00.0-34.0The [facility] SystemComment on above: Performed By: #### CBC ####[facility] PATHOLOGY IOEDVEHRTS5198[address] [place] [address], [address]WCFG (RBC) [Mass/Vol]32.9 g/lMTtrgtt23.0-35.9The [facility] SystemComment on above:Performed By: #### CBC ####[facility] PATHOLOGY BPAIPBEQJN6058[address] [place] [address], [address]QQQ (RBC) [Entitic vol] 96 qOTbvrbz64-054Gzt [facility] SystemComment on above:Performed By: #### CBC ####[facility] PATHOLOGY AXXSUHMREC6016[address] [place] [address], Platelet mean volume (Bld) [Entitic vol]6.7 fLLow7.5-11.2The [facility] Comment on above:Performed By: #### CBC ####[facility] PATHOLOGY JSRZGLADJC[address] [place] [address], [address]Yydhfkzgz (Bld) [#/Vol]386 10*3/uL Nhiino630-977Hax [facility] SystemComment on above:Performed By: #### CBC ####[facility] PATHOLOGY NDKJWVTELP9296[address] [place] [address], [address]ACF (Bld) [#/Vol]2.86 10*6/uLLow4.50-5.90The [facility] SystemComment on above: Performed By: #### CBC ####[facility] PATHOLOGY ECDMSVIOAI6507[address] [place] [address], [address]XXO (Bld) [#/Vol]9.8 10*3/uLNormal4.5-11.5The [facility] SystemComment on above:Performed By: #### CBC ####[facility] IWXOEEIWAL3198 [place], [address]Mmagwrfrkd 2024 [employer] Authentication Interface Message TextNormSy[facility]ore [facility] System General Contractor Authentication Interface Message TextNoCounts include 234 beds at the [facility] MAGNESIUMon 00-62-1900Lpmkmmbqd [Mass/Vol]2.2 mg/dLNormal1.9-2.7The [facility] SystemComment on above:Result Comment: Hemolysis presentPerformed By: #### MG, CH8, PHOS ####[facility] DOHRPBAPRU7243 [place], [place], [address]PHOSPHORUSon 06-04-5806Tyjzmoxue [Mass/Vol]2.7 mg/dLNormal2.5-5.0The [facility] SystemComment on above:Performed By: #### MG, CH8, PHOS ####[facility] NIBOAUZVBG8354 [place], [address]Zzszbrqc Noteson 68-51-4099Qmdbybnxfujbs Authentication Interface Message TextNoMet[facility] SystemXR CHEST AP OR PA 1 VIEWon 16-94-9540XO CHEST AP OR PA 1 VIEW NormalThe [facility] SystemXR Chest Single viewon 27-95-6632COSUNLTHAIG: XR CHEST AP OR PA 1 VIEW [...] Chest Single viewOrdered By: Gerber Mcdaniel on 95-37-4169VghfqMnrfym Work Phone: [phone] Interactionon 73-89-8201Fzezahghlddph Authentication Interface Message TextNormalThe [facility] SystemBASIC METABOLIC PANELon 05-18-1001Zouyj gap [Moles/Vol]14 mmol/EOcdbrr67-15Jvw [facility] SystemComment on above:Performed By: #### CH8 ####S PATHOLOGY PHVATFPMGR4322 [place], [address]Xcbvevv [Mass/Vol]8.1 mg/dLLow8.6-10.3 The [facility] SystemComment on above:Performed By: #### CH8 ####S PATHOLOGY DKXIYKABXK9466 [place], [address]Humtngsf [Moles/Vol]99 mmol/XDzkhoo01-904Kdc [facility] SystemComment on above:Performed By: #### CH8 ####S PATHOLOGY WQWUTPYILX0890 [place], [address]MI8 [Moles/Vol]30 mmol/FItkevz55-02Jzs [facility] SystemComment on above:Performed By: #### CH8 ####S PATHOLOGY QVRWANAPKV5197 [place], [address]Mbgyceaotm [Mass/Vol]0.62 mg/dLLow0.70-1.30The [facility] Comment on above:Performed By: #### CH8 ####S PATHOLOGY AYVTQFOFEO6840 [place], [address]WPIICTOGM GFR (CKD-EPI)95 mL/min/1.73sqmNormal>=60The [facility] SystemComment on above:Result Comment: 2020 CKD EPI [...] Inclusion of Race in Diagnosing Kidney Disease. English Journal of Kidney Diseases 202;79(2):268-88.e1.2. N Engl J Med 1 Vol. 385 Issue 19 Pages 1730-1742Performed By: #### CH8 ####[facility] NJLPINNHKV6848 [place], [address]Xeweulf [Mass/Vol]108 mg/dLNormal 74-109The [facility] SystemComment on above:Performed By: #### CH8 ####[facility] FGOPRYYDCG6681 [place], [address]Mxdyjgqnb [Moles/Vol]3.9 mmol/LNormal3.5-5.0The [facility] SystemComment on above: Performed By: #### CH8 ####S PATHOLOGY OGVSOGVFGN8875 [place], [address]Eeoedk [Moles/Vol]139 mmol/WPbrwsh211-366Izt [facility] SystemComment on above:Performed By: #### CH8 ####S PATHOLOGY WWJSLEEZFO2669 [place], [address]Jins nitrogen [Mass/Vol]24 mg/dLNormal7-25The [facility] SystemComment on above:Performed By: #### CH8 ####S PATHOLOGY TLNXBPGVTH4845 [place], [address]Tdgnp gap [Moles/Vol]11 mmol/EBggsgy48-43Uic [facility] SystemComment on above:Performed By: #### MGAMMON, PHOS ####S PATHOLOGY TPPJJLWKLM9951 [place], [address]Xmurepp [Mass/Vol]8.3 mg/dLLow8.6-10.3 The [facility] SystemComment on above:Performed By: #### MGAMMON, PHOS ####S PATHOLOGY ELSKUMVYLW0803 [place], [address]Jrwaykbz [Moles/Vol]98 mmol/QXklrxs31-792Jti [facility] SystemComment on above:Performed By: #### MG, CH8, PHOS ####[facility] XWRSTRTDBG1143 [place], [address]NT2 [Moles/Vol]32 mmol/LAfka76-27Olf [facility] SystemComment on above:Performed By: #### AMMON PRADO PHOS ####[facility] RUJFPLJRHU6524 [place], [address]Bzygtdlqpb [Mass/Vol] 0.66 mg/dLLow0.70-1.30The [facility] CampusroHealth SystemComment on above:Performed By: #### AMMON PRADO, RADS ####[facility] HRVTPMNNZZ2576 [place], [address]GPKSCVWTH GFR (CKD-EPI)94 mL/min/1.73sqmNormal>=60The [facility] Hospital[facility] SystemComment on above:Result Comment: 2020 CKD EPI [...] Inclusion of Race in Diagnosing Kidney Disease. English Journal of Kidney Diseases 202;79(2):268-88.e1.2. N Engl J Med 1 Vol. 385 Issue 19 Pages 9816-2009Performed By: #### AMMON PRADO PHOS ####[facility] LVQGILAWQL3893 [place], [address]Jaaffwc [Mass/Vol]99 mg/nVKrwael87-158Wel [facility] SystemComment on above:Performed By: #### AMMON PRADO PHOS ####[facility] HXCOPRGUIP2343 [place], [address]Qtqdygrxg [Moles/Vol]5.4 mmol/LHigh3.5-5.0The [facility] SystemComment on above:Result Comment: Hemolysis presentPerformed By: #### AMMON PRADO, RADS ####[facility] CEHIXTCEAR7171 [place], [address]Fgoyxw [Moles/Vol]136 mmol/FPngcwc411-769Ugm [facility] SystemComment on above:Performed By: #### AMMON PRADO, PHOS ####S PATHOLOGY RPUKNNPXLW2840 [place], [address]Colv nitrogen [Mass/Vol]25 mg/dLNormal7-25The [facility] Campusro[facility] SystemComment on above:Performed By: #### MG, CH8, PHOS ####[facility] PATHOLOGY GCTVUVOPUQ[address] [place] [address], [address]YNSOU GAS, ARTERIALon 51-05-4136KL ABE5.6 mmol/L High-2.0-3.0The [facility] CampusroHealth SystemComment on above:Performed By: #### CR BGA ####[facility] PATHOLOGY LFKQITTODC[address] [place] [address], [address]RW EBF358.8 mm TnUesd61.0-45.0The [facility] CampusroHealth SystemComment on above:Performed By: #### CR BGA ####[facility] PATHOLOGY WYYXWIEFXF[address] [place] [address], [address]YL PHA7.302Pevuqq9.350-7.450The [facility] CampusroHealth SystemComment on above: Performed By: #### CR BGA ####[facility] PATHOLOGY HPIEPWLRRB[address] [place] [address], [address]EI PO286 mm XuTswual88-509Wur [facility] Comment on above:Performed By: #### CR BGA ####[facility] PATHOLOGY ZEFLPZSEAL68[address] [place] [address], [address]OIA9 (CATEGORY)50%NormalThe [facility] SystemComment on above:Performed By: #### CR BGA ####[facility] PATHOLOGY ZOPCLANNQK[address] [place] [address], [address]KTO5 (Bld) [Moles/Vol] 31 mmol/RIlrv28-51Tjq [facility] Campusro[facility] SystemComment on above:Performed By: #### CR BGA ####[facility] PATHOLOGY ZZOFIHJYXM[address] [place] [address], MODENasal CanulaNormalThe [facility] SystemComment on above:Result Comment: HHFNC 60 LPMPerformed By: #### CR BGA ####[facility] PATHOLOGY CIHASKNQLH[address] [place] [address], [address]Nkcglm saturation in Blood96.7 %Normal 95.0-99.0The [facility] CampusroHealth SystemComment on above:Performed By: #### CR BGA ####[facility] PATHOLOGY XTFEGLQLNK8[address] [place] [address], [address]EC ABE5.9 mmol/LHigh-2.0-3.0The [facility] CampusroHealth SystemComment on above:Performed By: #### CR BGA ####[facility] PATHOLOGY ZPCTVMPZKN[address] [place] [address], [address]UO MMA769.7 mm BfSmmc24.0-45.0The [facility] CampusroHealth SystemComment on above: Performed By: #### CR BGA ####[facility] PATHOLOGY LPJYLTWYVV[address] [place] [address], [address]QG PHA7.830Iofpfp9.350-7.450The [facility] Comment on above:Performed By: #### CR BGA ####[facility] PATHOLOGY WYQUMRKJJE[address] [place] [address], [address]BH PO272 mm OpJut97-542Ovv [facility] CampusroHealth SystemComment on above:Performed By: #### CR BGA ####[facility] PATHOLOGY IYHQEMDQLB[address] [place] [address], [address]MYP8 (CATEGORY)40% NormalThe [facility] HospitalHealth SystemComment on above:Performed By: #### CR BGA ####[facility] PATHOLOGY CTLONPFVVN[address] [place] [address], [address]BUZ1 (Bld) [Moles/Vol]30 mmol/IGvqx13-88Tke [facility] CampusroHealth SystemComment on above:Performed By: #### CR BGA ####[facility] PATHOLOGY AYQWLRAXEN[address] [place] [address], [address]QTPKSynmj CanulaNormalThe [facility] SystemComment on above:Result Comment: high flowPerformed By: #### CR BGA ####[facility] PATHOLOGY WWTCMNKAJS[address] [place] [address], [address]Qmchhh saturation in Blood94.5 %Low 95.0-99.0The [facility] CampusroHealth SystemComment on above:Performed By: #### CR BGA ####[facility] PATHOLOGY WXMXUYTASA[address] [place] [address], [address]MJ ABE6.1 mmol/LHigh-2.0-3.0The [facility] CampusroHealth SystemComment on above:Performed By: #### CR BGA ####[facility] PATHOLOGY LMBBAQWAPA[address] [place] [address], [address]XM IDG886.9 mm NyDjfl34.0-45.0The [facility] CampusroHealth SystemComment on above: Performed By: #### CR BGA ####[facility] PATHOLOGY CLPGMFMYBF9129[address] [place] [address], [address]ZY PHA7.844Ykiubs6.350-7.450The [facility] Comment on above:Performed By: #### CR BGA ####[facility] PATHOLOGY CVAUZFGGFH[address] [place] [address], [address]KP PO263 mm XnPar45-154Hwl [facility] HospitalHealth SystemComment on above:Performed By: #### CR BGA ####[facility] PATHOLOGY PGNHAMAQPR[address] [place] [address], [address]AJU8 (CATEGORY)4 LPM NormalThe [facility] HospitalHealth SystemComment on above:Performed By: #### CR BGA ####[facility] PATHOLOGY PTYYTZMKDK9536[address] [place] [address], [address]ELJ1 (Bld) [Moles/Vol]31 mmol/MQzrq83-49Trx [facility] SystemComment on above:Performed By: #### CR BGA ####[facility] PATHOLOGY HZSBVLBLPW0520[address] [place] [address], [address]WWDYSgana CanulaNoalThe [facility] SystemComment on above: Performed By: #### CR BGA ####[facility] PATHOLOGY CCNOIQLNGT7945[address] [place] [address], [address]Uiagur saturation in Blood92.1 %Low95.0-99.0The [facility] SystemComment on above:Performed By: #### CR BGA ####[facility] PATHOLOGY SAVIPLGCTE7195[address] [place] [address], [address]QNCKRLZB BLOOD COUNTon 72-47-8846Fllsmrduteq distribution width (RBC) [Ratio]15.6 %High11.5-14.5The [facility] CampusroHealth SystemComment on above:Performed By: #### CBC ####[facility] PATHOLOGY DQQTRCQHAJ4847[address] [place] [address], [address]Abqedorwao (Bld) [Volume fraction]30.1 %Low41.0-53.0The [facility] CampusroHealth SystemComment on above: Performed By: #### CBC ####[facility] PATHOLOGY CTLBSBPGIU9187[address] [place] [address], [address]Lhpfcujsfz (Bld) [Mass/Vol]9.9 g/dLLow13.9-16.3The [facility] CampusroHealth SystemComment on above:Performed By: #### CBC ####[facility] PATHOLOGY QZFZJINOFO1016[address] [place] [address], [address]YFT (RBC) [Entitic mass]30.5 sdQxaiwy38.0-34.0The [facility] CampusroHealth SystemComment on above:Performed By: #### CBC ####[facility] PATHOLOGY UWGLAAFCKK4016[address] [place] [address], [address]KKCK (RBC) [Mass/Vol]32.8 g/jGRadplp30.0-35.9The [facility] Comment on above:Performed By: #### CBC ####[facility] PATHOLOGY YVREKDISTP[address] [place] [address], [address]SSX (RBC) [Entitic vol]93 fLNormal 80-100The [facility] CampusroHealth SystemComment on above:Performed By: #### CBC ####[facility] PATHOLOGY EDCXJOMXRB6797[address] [place] [address], [address]Ossjvbaj mean volume (Bld) [Entitic vol]7.2 fLLow7.5-11.2The [facility] CampusroHealth SystemComment on above:Performed By: #### CBC ####[facility] PATHOLOGY CRPRREQYOC3809[address] [place] [address], [address]Zjafvnopz (Bld) [#/Vol]396 10*3/fZPupvqi943-739Dvb [facility] CampusroHealth SystemComment on above:Performed By: #### CBC ####[facility] PATHOLOGY VGCVQMRMHI2518[address] [place] [address], [address]DSU (Bld) [#/Vol]3.25 10*6/uLLow4.50-5.90The [facility] CampusroShelby Memorial Hospital SystemComment on above:Performed By: #### CBC ####[facility] HWJDDUCJSO5265 [place], [address]BBG (Bld) [#/Vol]12.4 10*3/uLHigh4.5-11.5The [facility] CampusroHealth SystemComment on above: Performed By: #### CBC ####[facility]Y UQPEVIJGHK2125 [place], [address]Lvblueyxsr 89-65-6170Ctoevkjrzvwpm Authentication Interface Message TextNormSycamore Medical Center SystemTranscription Authentication Interface Message TextNoMetroHealth [facility] SystemMAGNESIUMon 05-24-2024 Magnesium [Mass/Vol]2.3 mg/dLNormal1.9-2.7The [facility] SystemComment on above:Result Comment: Hemolysis presentPerformed By: #### MG, CH8, PHOS ####[facility] BCXBZFWWMD0278 [place], [address]GQHPMSDDSGmk 89-48-3781Ruocatljr [Mass/Vol]3.0 mg/dLNormal2.5-5.0The [facility] Comment on above:Performed By: #### MG, CH8, PHOS ####[facility] AJDRHBDCFZ[address] [place] [address], [address]Bnznwbes Noteson 76-64-1320Lmjfzhdupeqxw Authentication Interface Message [id number] Pt needs to go on BiPap- no sitter available per nurse supervisor capacitor processing- this RN will sit outside pt room while on bipap and will have another RN or CP sit while attending to other pt. RT here in room and aware of plan.NormalThe [facility] CampusroHealth SystemTranscription Authentication Interface Message TextNormThe [facility] Medical Centere [facility] SystemTranscription Authentication Interface Message TextNormSycamore Medical Center SystemTranscription Authentication Interface Message TextNormChesapeake Regional Medical CenterroHealth SystemXR CHEST AP OR PA 1 VIEWon 78-00-1770RF CHEST AP OR PA 1 VIEWNormalThe [facility] SystemXR Chest Single viewon 68-44-3697MJOYCTIVSEP: XR CHEST AP OR PA 1 VIEW [...] Chest Single viewOrdered By: Arielle Conklin on 28-34-0362BsnwqWtyunu Work Phone: XR FEMUR LEFT 1 VIEWon 22-57-1982UU FEMUR LEFT 1 VIEW NormalThe [facility] SystemXR PELVIS SINGLE VIEWon 16-41-3786BW PELVIS SINGLE VIEWNormalThe [facility] CampusroAngiodroid SystemBASIC METABOLIC PANELon 46-76-6266Vltwr gap [Moles/Vol]11 mmol/REbleey05-81Ruh [facility] HospitalHealth SystemComment on above:Performed By: #### CH8, PHOS, MG ####[facility] KAUVTFYIKZ5473 [place], [address]Unfkbmi [Mass/Vol]8.1 mg/dLLow8.6-10.3The [facility] SystemComment on above:Performed By: #### LLOYD8CHI MG ####[facility] KBJBFBRRIK8277 [place], [address]Gfiygilq [Moles/Vol]98 mmol/WVjonpl84-965Iua [facility] CampusroHealth SystemComment on above:Performed By: #### CHI VERDE MG ####[facility] TKJPGVONKF7020 [place], [address]VA6 [Moles/Vol]31 mmol/PAoukhf76-81Afs [facility] SystemComment on above:Performed By: #### CHI VERDE MG ####[facility] QYKIMGTEJQ0269 [place], [address]Qripzgqjqg [Mass/Vol] 0.58 mg/dLLow0.70-1.30The [facility] CampusroHealth SystemComment on above:Performed By: #### CHI VERDE MG ####S PATHOLOGY HLNIFSVIBZ9992 [place], [address]YFKXVKZDZ GFR (CKD-EPI)97 mL/min/1.73sqmNormal>=60The [facility] SystemComment on above:Result Comment: 2020 CKD EPI [...] Inclusion of Race in Diagnosing Kidney Disease. English Journal of Kidney Diseases 2021;79(2):268-88.e1.2. N Engl J Med 2020 Vol. 385 Issue 19 Pages 4372-7209Performed By: #### CHI VERDE MG ####[facility] GJMBVGIOSA0694 [place], [address]Vqebzvz [Mass/Vol]99 mg/aQRrrokx59-410Sqj [facility] CampusroHealth SystemComment on above:Performed By: #### CH8CHI MG ####S PATHOLOGY KIRLSBOSJE7013 [place], [address]Oleldknit [Moles/Vol]4.0 mmol/LNormal3.5-5.0The [facility] HospitalHealth SystemComment on above:Performed By: #### CHIvis PHOAlfonzo MG ####S PATHOLOGY GFTYLZYHBI2829 [place], [address]Imhums [Moles/Vol]136 mmol/AMuupyk507-466Wqc [facility] HospitalHealth SystemComment on above: Performed By: #### CHI VERDE MG ####[facility] VWMUZFYPDA[address] [place] [address], [address]Dppo nitrogen [Mass/Vol]21 mg/dLNormal7-25The [facility] HospitalHealth SystemComment on above:Performed By: #### CHI VERDE MG ####[facility] PATHOLOGY QEGOWFKMXB[address] [place] [address], [address]MQZRJMJW BLOOD COUNTon 86-04-5771Puoiradxqfz distribution width (RBC) [Ratio]16.2 %High 11.5-14.5The [facility] HospitalHealth SystemComment on above:Performed By: #### CBC ####S PATHOLOGY SXLOUWMLZY2316 [place], [address]Dtqzglghhb (Bld) [Volume fraction]31.1 %Low41.0-53.0The [facility] SystemComment on above: Performed By: #### CBC ####[facility] DTBPBWNUKC[address] [place] [address], [address]Grdijbbxuu (Bld) [Mass/Vol]10.2 g/dLLow13.9-16.3 The [facility] SystemComment on above:Performed By: #### CBC ####[facility] OIZWFKMLHL5710 [place], [address]VWI (RBC) [Entitic mass]31.3 awZeotfs13.0-34.0The [facility] HospitalHealth SystemComment on above:Performed By: #### CBC ####[facility] EVWAWPDNPN7702 [place], [address]MKRI (RBC) [Mass/Vol]32.8 g/zHDecqcn04.0-35.9The [facility] Comment on above:Performed By: #### CBC ####[facility] PATHOLOGY AOSCTZPHMJ4[address] [place] [address], [address]MAZ (RBC) [Entitic vol]96 fLNormal 80-100The [facility] CampusroHealth SystemComment on above:Performed By: #### CBC ####[facility] PATHOLOGY SMLBASHUWN[address] [place] [address], [address]Nwbnwody mean volume (Bld) [Entitic vol]6.7 fLLow7.5-11.2The [facility] CampusroHealth SystemComment on above:Performed By: #### CBC ####[facility] PATHOLOGY HPZAZVUOZR[address] [place] [address], [address]Sbounovtx (Bld) [#/Vol]251 10*3/tAVaflcx788-837Vso [facility] CampusroHealth SystemComment on above:Performed By: #### CBC ####[facility] PATHOLOGY ENBHRWZUEP56[address] [place] [address], [address]PAW (Bld) [#/Vol]3.26 10*6/uLLow4.50-5.90The [facility] HospitalHealth SystemComment on above:Performed By: #### CBC ####[facility] PATHOLOGY LHANZWDZXI[address] [place] [address], [address]LLZ (Bld) [#/Vol]10.3 10*3/uLNormal4.5-11.5The [facility] CampusroHealth SystemComment on above: Performed By: #### CBC ####[facility] PATHOLOGY VTJHSVWKRB67[address] [place] [address], [address]FTHDOPAJBug 64-99-8220Jnxttzfgv [Mass/Vol]1.9 mg/dLNormal1.9-2.7The [facility] HospitalHealth SystemComment on above:Performed By: #### CH8, PHOS, MG ####[facility] PATHOLOGY TWILUDSOQN[address] [place] [address], PHOSPHORUSon 68-90-7629Xupqwqjog [Mass/Vol]2.4 mg/dLLow2.5-5.0The [facility] SystemComment on above:Performed By: #### CH8, MG CHI ####[facility] QLMOTWZSZV9510 [place], [address]Leyezuaq Noteson 81-03-5261Fydswgzlbcgtc Authentication Interface Message TextNormalThe [facility] CampusroHealth SystemXR CHEST AP OR PA 1 VIEWon 12-13-2593WN CHEST AP OR PA 1 VIEW NormalThe [facility] CampusroHealth SystemXR CHEST AP OR PA 1 VIEWNormalThe [facility] CampusroShelby [facility] System XR Chest Single viewon 76-08-7659KDJRKOQNFID: XR CHEST AP OR PA 1 VIEW [...] appreciable left-sided pneumothorax. Otherwise, unchanged pulmonary findings. [facility] HospitalRadiology Study observation (narrative)[facility]XR Chest Single viewOrdered By: Vignesh Higuera on 43-09-5770FrxjhKmhwfi Work Phone: bASIC METABOLIC PANELon 26-68-7644Hokis gap [Moles/Vol]9 mmol/TVro76-29Nvi [facility] HospitalHealth SystemComment on above:Performed By: #### MG, CH8, PHOS ####[facility] YWGIWTCDFT8887 [place], [address]Yotqulf [Mass/Vol]7.9 mg/dLLow8.6-10.3The [facility] System Comment on above:Performed By: #### MG CH8, PHOS ####[facility] DSLCEPHEGX8867 [place], [address]Qrktgwcc [Moles/Vol]101 mmol/KNwuhii76-238Gzm [facility] SystemComment on above:Performed By: #### MG, CH8, PHOS ####[facility] QNUZNBTFNN6878 [place], [place], [address]PC8 [Moles/Vol]30 mmol/BPfotwr50-26Nho [facility] SystemComment on above:Performed By: #### MG, CH8, PHOS ####[facility] AJXOKUUNHR4380 [place], [address]Yrybuikhuu [Mass/Vol]0.62 mg/dLLow 0.70-1.30The [facility] SystemComment on above:Performed By: #### MG, CH8, PHOS ####[facility] YYWCYNNUVE1450 [place], [address] ESTIMATED GFR (CKD-EPI)95 mL/min/1.73sqmNormal>=60The [facility] SystemComment on above:Result Comment: 2020 CKD EPI [...] Inclusion of Race in Diagnosing Kidney Disease. English Journal of Kidney Diseases 2021;79(2):268-88.e1.2. N Engl J Med 1 Vol. 385 Issue 19 Pages 5642-0325Performed By: #### AMMON PRADO PHOS ####[facility] SUXPTYIJXQ8440 [place], [address]Ydplzap [Mass/Vol]117 mg/rGVxwp23-395Jpl [facility] SystemComment on above:Performed By: #### AMMON PRADO PHOS ####[facility] PQPHWHTYTG3260 [place], [place], [address] Potassium [Moles/Vol]3.6 mmol/LNormal3.5-5.0The [facility] Comment on above:Performed By: #### AMMON PRADO PHOS ####[facility] BBBZSMCDUS3181 [place], [address]Bzcgfl [Moles/Vol]136 mmol/ODsyzdi677-037Jzm [facility]Health SystemComment on above:Performed By: #### AMMON PRADO PHOS ####[facility] ITJWKQBMQZ6497 [place], [place], 44 Urea nitrogen [Mass/Vol]19 mg/dLNormal7-25The [facility] HospitalHealth SystemComment on above:Performed By: #### AMMON PRADO PHOS ####[facility] DNDGXYKHJJ2942 [place], [address]ADEJELUQ BLOOD COUNTon 05-22-2024 Erythrocyte distribution width (RBC) [Ratio]16.2 %High11.5-14.5The [facility] SystemComment on above:Performed By: #### CBC ####[facility] IDYYYBNJBK1935 [place], [address]Hwkjsnztlf (Bld) [Volume fraction]27.5 %Low41.0-53.0The [facility] SystemComment on above:Performed By: #### CBC ####[facility] PATHOLOGY SXVXVBGBHQ9665 [place], Hemoglobin (Bld) [Mass/Vol]9.3 g/dLLow13.9-16.3The [facility] CampusroHealth SystemComment on above:Performed By: #### CBC ####[facility] PATHOLOGY DAHZDCJHCP[address] [place] [address], [address]UKP (RBC) [Entitic mass]31.8 teAouctn76.0-34.0The [facility] CampusroHealth SystemComment on above:Performed By: #### CBC ####[facility] PATHOLOGY PNFDSZGSCR[address] [place] [address], [address]USWC (RBC) [Mass/Vol] 33.8 g/fSCrqwut74.0-35.9The [facility] CampusroHealth SystemComment on above:Performed By: #### CBC ####[facility] PATHOLOGY LFPNVTCLAA[address] [place] [address], [address]XFE (RBC) [Entitic vol]94 xAJybiqv53-867Axd [facility] CampusroHealth SystemComment on above:Performed By: #### CBC ####[facility] PATHOLOGY AOPJHIKPGR7[address] [place] [address], [address]Eliqnyyh mean volume (Bld) [Entitic vol]6.5 fLLow 7.5-11.2The [facility] HospitalHealth SystemComment on above:Performed By: #### CBC ####[facility] PATHOLOGY ZCRZLOAUCY6918[address] [place] [address], [address]Uunchcqkw (Bld) [#/Vol]214 10*3/tEHtbmke315-686Zbr [facility] CampusroHealth SystemComment on above: Performed By: #### CBC ####[facility] PATHOLOGY EVYTVYQGLI6987[address] [place] [address], [address]JAI (Bld) [#/Vol]2.93 10*6/uLLow4.50-5.90The [facility] SystemComment on above:Performed By: #### CBC ####[facility] PATHOLOGY KPKIMFTXRZ8106[address] [place] [address], [address]VSS (Bld) [#/Vol]8.7 10*3/uLNormal4.5-11.5The [facility] SystemComment on above:Performed By: #### CBC ####[facility] ULBDTOJOFD7182 [place], [place], MAGNESIUMon 94-84-4152Mhcxmcrro [Mass/Vol]2.1 mg/dLNormal1.9-2.7The [facility] SystemComment on above:Performed By: #### MG, CH8, PHOS ####[facility] PATH[facility] OEICVFCUVU8662 [place], [address]NPMVKFAKULrx 05-22-2024 Phosphate [Mass/Vol]2.0 mg/dLLow2.5-5.0The [facility] SystemComment on above: Performed By: #### MG, CH8, PHOS ####S PATHOLOGY AWABYURZSR7574 [place], [address]Ybzpggwm Noteson 06-96-0684Lqaawafyvnynh Authentication Interface Message TextESP catheter removed, blue tip in-tact. No signs of infection at site or hematoma formation. Adhesive bandage placed over puncture site. Rahul Azevedo DO AnesthesiologyNormSycamore Medical Center SystemTranscription Authentication Interface Message TextNormSycamore Medical Center SystemProgress Notes - NoteWriteron 91-64-6382Umdrhdfdqzuad Authentication Interface Message [id number]: DO Wright notified of pt monitor alarming high HR. HR fluctuating between 115-130's. EKG obtained, BP 139/77(94) O2 94%. Pt alert and oriented. No new orders at this time.NormalThe [facility] SystemXR CHEST AP OR PA 1 VIEWon 71-60-6980DI CHEST AP OR PA 1 VIEWNormalThe [facility] CampusroShelby Memorial Hospital SystemXR Chest Single viewon 83-86-1726SLUEJMOJMVR: XR CHEST AP OR PA 1 VIEW [...] prior. No appreciable pneumothorax. [facility]HealthRadiology Study observation (narrative)[facility] HospitalXR Chest Single viewOrdered By: Vignesh Higuera on 53-74-5256UvlhbFiswqx Work Phone: anti FXA-LMW HEPARINon 20-92-1080HKAA FXA-LMW HEPARIN ASSAY0.37 IU/mLNormalThe [facility] HospitalAngiodroid SystemComment on above:Order Comment: The recommended therapeutic range for treatment of thrombosis with Low Molecular Weight Heparin is 0.5 - 1.0 IU/mLThe recommended range for VTE prophylaxis with Low Molecular Weight Heparin is 0.2 - 0.4 IU/mL.Performed By: #### ANGELINA ####[facility] HIUHQXGAPE1944 [place], [address]UOENW METABOLIC PANELon 62-15-2759Qffjf gap [Moles/Vol]10 mmol/MEdwxrv82-38Aun [facility] CampusroHealth SystemComment on above:Performed By: #### RAD VERDES, MG ####[facility] JCNDSPRLFI0889 [place], [address]Wjtjzjk [Mass/Vol]7.3 mg/dLLow8.6-10.3The [facility] CampusroHealth SystemComment on above:Performed By: #### CH8, PHOS, MG ####[facility] AGIXILZLDS3683 [place], [address]Boyfylxf [Moles/Vol]100 mmol/XDhegcy34-538Qgh [facility] CampusroHealth SystemComment on above:Performed By: #### AMMON PHOS, MG ####[facility] JFGGUPLNMA1926 [place], [address]OO7 [Moles/Vol]26 mmol/QIgdouh33-86Ber [facility] CampusroHealth SystemComment on above:Performed By: #### CHIvis, PHOS, MG ####[facility] AXLACRLIFP5393 [place], [address]Ebtsvkbjsj [Mass/Vol]0.81 mg/dLNormal0.70-1.30The [facility] CampusroHealth SystemComment on above:Performed By: #### AMMON PHOS, MG ####S PATHOLOGY MTSFOLUQKU6356 [place], [address]YHPTQKNAO GFR (CKD-EPI)88 mL/min/1.73sqmNormal>=60The [facility] SystemComment on above: Result Comment: 2020 CKD [...] Inclusion of Race in Diagnosing Kidney Disease. English Journal of Kidney Diseases 2021;79(2):268-88.e1.2. N Engl J Med 1 Vol. 385 Issue 19 Pages 4145-0319Performed By: #### CHI VERDE MG ####[facility] PATHOLOGY XZLFAVVLJG4068 [place], [address]Iuosdcm [Mass/Vol]160 mg/wRVcdr22-774Hrr [facility] CampusroHealth SystemComment on above:Performed By: #### CHI VERDE MG ####[facility] OFGYGFCPAI7239 [place], [place], [address]Potassium [Moles/Vol]4.5 mmol/LNormal3.5-5.0The [facility] Campus[facility] System Comment on above:Performed By: #### CHI VERDE MG ####[facility] HLEAGGLHVN3115 [place], [address]Kpvejo [Moles/Vol]131 mmol/JNwt188-636Alr [facility] SystemComment on above:Performed By: #### CHI VERDE MG ####[facility] PATHOLOGY DNRDJMHYAN9905 [place], [place], [address] Urea nitrogen [Mass/Vol]23 mg/dLNormal7-25The [facility] HospitalHealth SystemComment on above:Performed By: #### CHI VERDE MG ####[facility] CXXGWLGIGE9998 [place], [address]FMZHH GAS, ARTERIALon 56-43-5938MD JOSEPH 2.9 mmol/LNormal-2.0-3.0The [facility] CampusroHealth SystemComment on above:Performed By: #### CR BGA ####[facility] XFKXCFHFAN1810 [place], [address]GT YXY220.6 mm HgLow35.0-45.0The [facility] CampusroHealth SystemComment on above: Performed By: #### CR BGA ####[facility] QBHCLKIYPH0367 [place], [address]HH PHA7.253Rqbm6.350-7.450The [facility] Campusro[facility] System Comment on above:Performed By: #### CR BGA ####[facility] XIYSMZQVCO[address] [place] [address], [address]TJ PO283 mm QaBgytzv37-900Uwa [facility] CampusroHealth SystemComment on above:Performed By: #### CR BGA ####[facility] PATHOLOGY ZOMAYOZSJX[address] [place] [address], [address]KFI8 (CATEGORY)50% NormalThe [facility] CampusroHealth SystemComment on above:Performed By: #### CR BGA ####[facility] PATHOLOGY KQVRAQAAGO80[address] [place] [address], [address]ZWH4 (Bld) [Moles/Vol]26 mmol/MHhikvx74-31Rkt [facility] CampusroHealth SystemComment on above:Performed By: #### CR BGA ####[facility] PATHOLOGY JBKNFHWKIW02[address] [place] [address], [address]YZZEOkcgOmegutEeo [facility] CampusroShelby Memorial Hospital SystemComment on above:Performed By: #### CR BGA ####[facility] PATHOLOGY CPTWIMRCHL[address] [place] [address], [address]Ihkdhw saturation in Blood97.4 %Ufghjm21.0-99.0The [facility] Comment on above:Performed By: #### CR BGA ####[facility] PATHOLOGY MUWLCPOJZF[address] [place] [address], [address]LAUAHOAM BLOOD COUNTon 05-21-2024 Erythrocyte distribution width (RBC) [Ratio]16.3 %High11.5-14.5The [facility] SystemComment on above:Performed By: #### CBC ####[facility] PATHOLOGY XJPGJZXBPV[address] [place] [address], [address]Yenynaxcbh (Bld) [Volume fraction]25.4 %Low41.0-53.0The [facility] SystemComment on above:Performed By: #### CBC ####[facility] PATHOLOGY RUNIQOIPYH[address] [place] [address], Hemoglobin (Bld) [Mass/Vol]8.5 g/dLLow13.9-16.3The [facility] Campus[facility] SystemComment on above:Performed By: #### CBC ####[facility] PATHOLOGY CMQPRTVWHX[address] [place] [address], [address]QMZ (RBC) [Entitic mass]31.3 vsCifott11.0-34.0The [facility] SystemComment on above:Performed By: #### CBC ####[facility] PATHOLOGY VYPJNBEKKX[address] [place] [address], [address]YTDX (RBC) [Mass/Vol] 33.6 g/aUVktfus71.0-35.9The [facility] SystemComment on above:Performed By: #### CBC ####[facility] PATHOLOGY EMJFVFTONC4176[address] [place] [address], [address]DSV (RBC) [Entitic vol]93 uSPpdkhn05-302Cbz [facility] SystemComment on above:Performed By: #### CBC ####[facility] PATHOLOGY OHCFEQIPIP[address] [place] [address], [address]Gssumbiz mean volume (Bld) [Entitic vol]6.9 fLLow 7.5-11.2The [facility] Campusro[facility] SystemComment on above:Performed By: #### CBC ####[facility] PATHOLOGY XBKFVLBDPE9822[address] [place] [address], [address]Qwcljxrzz (Bld) [#/Vol]159 10*3/eXRugjom359-559Ecd [facility] Campusro[facility] SystemComment on above: Performed By: #### CBC ####[facility] PATHOLOGY GAFRYPULQM[address] [place] [address], [address]NUI (Bld) [#/Vol]2.73 10*6/uLLow4.50-5.90The [facility] Campusro[facility] SystemComment on above:Performed By: #### CBC ####[facility] PATHOLOGY FVLYCKJLJA1890[address] [place] [address], [address]UQJ (Bld) [#/Vol]7.4 10*3/uLNormal4.5-11.5The [facility] Campusro[facility] SystemComment on above:Performed By: #### CBC ####[facility] PATHOLOGY GDTBZCRVFT[address]17[address] [place] [address], Care Plan Noteon 94-25-8685Ivdfufrsyxupt Authentication Interface Message Text NormalThe [facility] CampusroS[facility] SystemConsultson [phone] Authentication Interface Message TextNormAmesbury Health CenterAngiodroid SystemMAGNESIUMon 05-21-2024 Magnesium [Mass/Vol]1.9 mg/dLNormal1.9-2.7The [facility] SystemComment on above:Performed By: #### CH8, PHOS, MG ####[facility] [address]OBXDQZ[address] [place], [address]LLMISWZJSQyj 48-12-2945Xotyrwpsf [Mass/Vol]2.7 mg/dLNormal2.5-5.0The [facility] SystemComment on above:Performed By: #### CH8, PHOS, MG ####[facility] PATH[facility]Y OUDBJHNMCT17[address] [place], [address]Inkpwgja Noteson 39-79-4376Mtbvgejnjazyq Authentication Interface Message TextNormSy[facility] SystemTranscription Authentication Interface Message TextNormSycamore Medical Center SystemTranscription Authentication Interface Message TextNoCone Health Wesley Long HospitalAngiodroid SystemXR ABDOMEN AP 1 VIEWon [phone] ABDOMEN AP 1 VIEWNormalThe [facility] CampusroHealth SystemXR CHEST AP OR PA 1 VIEWon 23-15-2145KK CHEST AP OR PA 1 VIEWNormalThe [facility]ro[facility] SystemXR CHEST AP OR PA 1 VIEWNormalThe [facility]ro[facility] SystemXR CHEST AP OR PA 1 VIEWNormal The [facility] CampusroHealth SystemXR Chest Single viewon 09-08-5809QRPJCYWWUUC: XR CHEST AP OR PA 1 VIEW [...] The tip is not included in the dvftp-jn-arye. Lungs and pleura: Similar loculated right-sided pleural [...] The tip is not included in the tpxlj-xy-lnjt. Lungs and pleura: Similar loculated right-sided pleural [...] Chest Single viewOrdered By: Jerrell Henry on [phone] Work Phone: anesthesia Postprocedure Evaluationon 05-20-2024 General Contractor Authentication Interface Message TextNormalThe [facility] Anesthesia Preprocedure Evaluationon 76-06-3819Atfxtagrsocyd Authentication Interface Message TextNormalThe [facility] SystemAnesthesia Transfer Of Careon 25-20-8139Utppsayycqmfe Authentication Interface Message TextNormalThe [facility] CampusroHealth SystemBASIC METABOLIC PANELon 67-40-4898Bluby gap [Moles/Vol]10 mmol/DJtyszr06-10Dov [facility] CampusroShelby Memorial Hospital SystemComment on above:Performed By: #### CH8 ####S PATHOLOGY TLEWDBAHZW3[address] [place], [place], Calcium [Mass/Vol]7.6 mg/dLLow8.6-10.3The [facility] SystemComment on above: Performed By: #### CH8 ####S PATHOLOGY SNMXJJARFZ8250 [place], [address]Gbeahepv [Moles/Vol]101 mmol/CHnxhws94-718Qgz [facility] SystemComment on above:Performed By: #### CH8 ####S PATHOLOGY UXEHYYXLIM3961 [place], [address]EA6 [Moles/Vol]27 mmol/RGyakxs69-87Vlc [facility] SystemComment on above:Performed By: #### CH8 ####S PATHOLOGY MVNDDSPTIO8342 [place], [place], Creatinine [Mass/Vol]0.80 mg/dLNormal0.70-1.30The [facility] SystemComment on above:Performed By: #### CH8 ####S PATHOLOGY UDYOPJJFXM4780 [place], [address]JFBMDEXMP GFR (CKD-EPI)88 mL/min/1.73sqmNormal>=60 The [facility] SystemComment on above:Result Comment: 2020 CKD EPI [...] Inclusion of Race in Diagnosing Kidney Disease. English Journal of Kidney Diseases 2021;79(2):26 8-88.e1.2. N Engl J Med 1 Vol. 385 Issue 19 Pages 4114-2794Performed By: #### CH8 ####S PATHOLOGY SGIJFTALOQ6450 [place], [place], Glucose [Mass/Vol]125 mg/fGYdcf73-799Muv [facility] SystemComment on above: Performed By: #### CH8 ####[facility] PATHOLOGY LHEJRBZVRI[address] [place] [address], [address]Gricgzcpw [Moles/Vol]4.5 mmol/LNormal3.5-5.0The [facility] CampusroHealth SystemComment on above:Performed By: #### CH8 ####[facility] PATHOLOGY IOGGWIIZFO1454[address] [place] [address], [address]Hmqgaa [Moles/Vol]133 mmol/PGuc215-030Zhv [facility] SystemComment on above:Performed By: #### CH8 ####[facility] PATHOLOGY KQOXKPDXHO[address] [place] [address], [address]Imnk nitrogen [Mass/Vol]21 mg/dLNormal7-25The [facility] CampusroHealth SystemComment on above: Performed By: #### CH8 ####S PATHOLOGY LQSQLTMXDP3729[address] [place] [address], [address]Yntdc gap [Moles/Vol]10 mmol/HNkmglr17-86Hps [facility] CampusroHealth SystemComment on above:Performed By: #### CK, MG, PHOS, TRIG, CH8 ####S PATHOLOGY GCHPXSZVPZ4616 [place], Calcium [Mass/Vol]7.9 mg/dLLow8.6-10.3The [facility] SystemComment on above: Performed By: #### CK, MG, PHOS, TRIG, CH8 ####S PATHOLOGY JQRTZUCHND1716 [place], [address]Nauyraiq [Moles/Vol]99 mmol/LNormal 98-107The [facility] CampusroHealth SystemComment on above:Performed By: #### CK, MG, PHOS, TRIG, CH8 ####[facility]Y IGQNEPYVMM3672 [place], [address]QN8 [Moles/Vol]26 mmol/WGdizhb17-31Imc [facility] Campusro[facility] SystemComment on above:Performed By: #### CK, MG, PHOS, TRIG, CH8 ####S PATHOLOGY ACVLNXMPKF0893 [place], [address]Aqiefcnyxn [Mass/Vol] 0.93 mg/dLNormal0.70-1.30The [facility] SystemComment on above:Performed By: #### CK, MG, PHOS, TRIG, CH8 ####S PATHOLOGY KSMGBXNZUJ1669 [place], [address]SJVSYWNYW GFR (CKD-EPI)82 mL/min/1.73sqmNormal>=60 The [facility] SystemComment on above:Result Comment: 2020 CKD EPI [...] Inclusion of Race in Diagnosing Kidney Disease. English Journal of Kidney Diseases 2021;79(2):26 8-88.e1.2. N Engl J Med 2020 Vol. 385 Issue 19 Pages 7280-2306Performed By: #### CK, MG, PHOS, TRIG, CH8 ####[facility] PATH[facility]Y JHZZNEHJNK4493 [place], [address]Zrlqufs [Mass/Vol]126 mg/aIEjkl97-539Grq [facility] SystemComment on above:Performed By: #### CK, MG, PHOS, TRIG, CH8 ####S PATHOLOGY LUFTPUCGTT7463 [place], [place], Potassium [Moles/Vol]4.3 mmol/LNormal3.5-5.0The [facility] Campusro[facility] SystemComment on above:Performed By: #### CK, MG, PHOS, TRIG, CH8 ####[facility] PATHOLOGY EMZGAAJQMF[address] [place] [address], [address]Zeqhos [Moles/Vol]131 mmol/UIwn991-490Ycq [facility] Campusro[facility] SystemComment on above:Performed By: #### CK, MG, PHOS, TRIG, CH8 ####[facility] PATHOLOGY QXGMVVYUOL69[address] [place] [address], [address]Ixzu nitrogen [Mass/Vol]30 mg/dLHigh7-25The [facility] Comment on above:Performed By: #### CK, MG, PHOS, TRIG, CH8 ####[facility] PATHOLOGY QSMXQXCINF08[address] [place] [address], [address]HIEMN GAS, ARTERIALon 98-58-8978LR ABE1.6 mmol/LNormal-2.0-3.0The [facility] CampusroHealth SystemComment on above: Performed By: #### CR GLU, CR BGA, CR COOX, CR ICA, LACT, CR LYTES ####[facility] PATHOLOGY KPURFZHDTU4836NodvxIjsrvv[address] [place] [address], [address]IW UGU926.6 mm OjUetq20.0-45.0The [facility] CampusroHealth SystemComment on above:Performed By: #### CR GLU, CR BGA, CR COOX, CR ICA, LACT, CR LYTES ####[facility] PATHOLOGY LBPBFMQJXQ9[address] [place] [address], [address]CG PHA7.721Gzi4.350-7.450The [facility] SystemComment on above:Performed By: #### CR GLU, CR BGA, CR COOX, CR ICA, LACT, CR LYTES ####[facility] PATHOLOGY HTEQWOCCEL7406SwttrQephcm[address] [place] [address], [address]EU UB0188 mm JaSodk91-281Ygz [facility] Comment on above:Performed By: #### CR GLU, CR BGA, CR COOX, CR ICA, LACT, CR LYTES ####[facility] PATHOLOGY GNKBRGVTIL1776YlelaNtddel[address] [place] [address], HCO3 (Bld) [Moles/Vol]27 mmol/CMjdwxj14-22Spw [facility] Campusro[facility] SystemComment on above:Performed By: #### CR GLU, CR BGA, CR COOX, CR ICA, LACT, CR LYTES ####[facility] PATHOLOGY JTVRIRGTYW2000TpbmeUrginw[address] [place] [address], [address]Mciaiz saturation in Blood98.7 %Xihvvx70.0-99.0The [facility] SystemComment on above: Performed By: #### CR GLU, CR BGA, CR COOX, CR ICA, LACT, CR LYTES ####[facility] PATHOLOGY XCMOWJSSOQ2257UbikfRwczwp[address] [place] [address], [address]NM ABE1.7 mmol/LNormal-2.0-3.0The [facility] SystemComment on above:Performed By: #### CR COOX, CR LYTES, LACT, CR GLU, CR BGA, CR ICA ####[facility] PATHOLOGY ZAYRMQHPUY[address] [place] [address], [address]IS VET196.2 mm CtYfdj68.0-45.0The [facility] SystemComment on above:Performed By: #### CR COOX, CR LYTES, LACT, CR GLU, CR BGA, CR ICA ####[facility] PATHOLOGY CELIXEPJRK8992GrengSftrpj[address] [place] [address], [address]MR PHA7.838Akb5.350-7.450The [facility] Comment on above:Performed By: #### CR COOX, CR LYTES, LACT, CR GLU, CR BGA, CR ICA ####[facility] PATHOLOGY BKIRICZDDM9374ErokgSkrlmm[address] [place] [address], [address]QY SF4807 mm XgMihs06-136Xbd [facility] SystemComment on above:Performed By: #### CR COOX, CR LYTES, LACT, CR GLU, CR BGA, CR ICA ####[facility] PATHOLOGY WGAYDNNOBZ2097CuxeqDjkdqt[address] [place] [address], [address]KWI4 (Bld) [Moles/Vol]28 mmol/UMwxdtq59-98Lab [facility] CampusroHealth SystemComment on above:Performed By: #### CR COOX, CR LYTES, LACT, CR GLU, CR BGA, CR ICA ####[facility] PATHOLOGY GRNMPZVJHV8[address] [place] [address], [address]Vywshv saturation in Blood98.6 %Normal 95.0-99.0The [facility] SystemComment on above:Performed By: #### CR COOX, CR LYTES, LACT, CR GLU, CR BGA, CR ICA ####[facility] PATHOLOGY WSCSJSYUJY4254HtkewKxtkhu[address] [place] [address], [address]MZ ABE2.5 mmol/LNormal-2.0-3.0The [facility] SystemComment on above:Performed By: #### LACT, CR BGA ####[facility] PATHOLOGY ICYSYILIYG[address] [place] [address], [address]WX AKW939.2 mm HgNormal 35.0-45.0The [facility] SystemComment on above:Performed By: #### LACT, CR BGA ####[facility] PATHOLOGY IUBAJMNPXJ1970[address] [place] [address], [address]JJ PHA7.819Udodpa3.350-7.450The [facility] SystemComment on above:Performed By: #### LACT, CR BGA ####[facility] PATHOLOGY IKDVKQCASR4159[address] [place] [address], [address]IK PO288 mm AcHtuiea29-588Huq [facility] SystemComment on above: Performed By: #### LACT, CR BGA ####[facility] PATHOLOGY XGHVIGUTCG9101[address] [place] [address], [address]GRS1 (CATEGORY)60%NormalThe [facility] Comment on above:Performed By: #### LACT, CR BGA ####[facility] PATHOLOGY ZFWRZBIIAB[address] [place] [address], [address]KTI5 (Bld) [Moles/Vol] 27 mmol/YAszxrk18-69Ldp [facility] SystemComment on above:Performed By: #### LACT, CR BGA ####[facility] PATHOLOGY YUQNUHYIPF[address] [place] [address], [address]TLQUYhtcRjhmvvGnr [facility] SystemComment on above:Performed By: #### LACT, CR BGA ####[facility] PATHOLOGY GYUDWVKXPL[address] [place] [address], [address]Pjerpl saturation in Blood97.2 %Fkcoyj08.0-99.0The [facility] SystemComment on above:Performed By: #### LACT, CR BGA ####[facility] PATHOLOGY IKEJYQGKLC[address] [place] [address], [address]Ryxzc Attestationon 73-62-8855Gccmhnkorsqeo Authentication Interface Message TextNormalThe [facility] SystemCALCIUM, IONIZEDon 52-12-8102SL ICA1.14 mmol/LLow1.15-1.33The [facility] SystemComment on above:Result Comment: This test was developed, and its performance characteristics determined by the Department of Pathology of [facility]. It has not been cleared or approved by the FDA. This test is used for clinical purposes only.Performed By: #### CR GLU, CR BGA, CR COOX, CR ICA, LACT, CR LYTES ####[facility] PATHOLOGY LUTDQZOCWT1427AnrueWmmxgw[address] [place] [address], [address]UN ICA1.19 mmol/LNormal1.15-1.33The [facility] SystemComment on above:Result Comment: This test was developed, and its performance characteristics determined by the Department of Pathology of [facility]. It has not been cleared or approved by the FDA. This test is used for clinical purposes only.Performed By: #### CR COOX, CR LYTES, LACT, CR GLU, CR BGA, CR ICA ####[facility] PATHOLOGY SPPRWHXQLE2440LflsmDvtxpy[address] [place] [address], [address]ZB-OYEDAXXYyo 73-40-1579FUZKKPBTMEKQSRLDE8.0 %High0.5-1.5The [facility] SystemComment on above:Performed By: #### CR GLU, CR BGA, CR COOX, CR ICA, LACT, CR LYTES ####[facility] PATHOLOGY YFECHAIRTP3586GhdhbXekysp[address] [place] [address], [address]YS HBMET1.0 %Normal0.0-1.5The [facility] Comment on above:Performed By: #### CR GLU, CR BGA, CR COOX, CR ICA, LACT, CR LYTES ####[facility] PATHOLOGY FAUALOGFPF2543PcfsuHfvafp[address] [place] [address], Hematocrit (Bld) [Volume fraction]27.8 %Low42.0-54.0The [facility] Comment on above:Performed By: #### CR GLU, CR BGA, CR COOX, CR ICA, LACT, CR LYTES ####[facility] PATHOLOGY RMENFDPAMV8251LgultLlwzji[address] [place] [address], Hemoglobin (Bld) [Mass/Vol]8.9 g/dLLow13.5-17.5The [facility] SystemComment on above:Performed By: #### CR GLU, CR BGA, CR COOX, CR ICA, LACT, CR LYTES ####[facility] PATHOLOGY ZDHEXDSVRR0434MvnhdWnowgo[address] [place] [address], [address]NLDAGDEKHOJLY 95.7 %Jbyuql70.0-98.0The [facility] SystemComment on above:Performed By: #### CR GLU, CR BGA, CR COOX, CR ICA, LACT, CR LYTES ####[facility] PATHOLOGY FZILBVBDGQ5154[address] [place] [address], [address]VEHMKKSFCZQJPDHTY1.8 %High0.5-1.5The [facility] SystemComment on above:Performed By: #### CR COOX, CR LYTES, LACT, CR GLU, CR BGA, CR ICA ####[facility] PATHOLOGY EXZOJXXITS3433SwsppHbhqru[address] [place] [address], [address]QF HBMET1.1 %Normal0.0-1.5The [facility] Comment on above:Performed By: #### CR COOX, CR LYTES, LACT, CR GLU, CR BGA, CR ICA ####[facility] PATHOLOGY CBZPIRIJJU3169QoqseHiqkia[address] [place] [address], Hematocrit (Bld) [Volume fraction]25.0 %Low42.0-54.0The [facility] Comment on above:Performed By: #### CR COOX, CR LYTES, LACT, CR GLU, CR BGA, CR ICA ####[facility] PATHOLOGY QYTDNINKNQ6748HexgqNsltsn[address] [place] [address], Hemoglobin (Bld) [Mass/Vol]8.0 g/dLLow13.5-17.5The [facility] SystemComment on above:Performed By: #### CR COOX, CR LYTES, LACT, CR GLU, CR BGA, CR ICA ####[facility] PATHOLOGY BZSNBNPIXT8769NgaqqLidxxj[address] [place] [address], [address]ZVIMQSJQYEFVP 95.7 %Xlrnqw91.0-98.0The [facility] SystemComment on above:Performed By: #### CR COOX, CR LYTES, LACT, CR GLU, CR BGA, CR ICA ####[facility] PATHOLOGY HSNGJTEABS6964[address] [place] [address], [address]GGYKZKOX BLOOD COUNTon 05-20-2024 Erythrocyte distribution width (RBC) [Ratio]15.6 %High11.5-14.5The [facility] SystemComment on above:Performed By: #### CBC ####[facility] PATHOLOGY CWQVFOJFDM7557[address] [place] [address], [address]Qvorgbfbvy (Bld) [Volume fraction]30.5 %Low41.0-53.0The [facility] SystemComment on above:Performed By: #### CBC ####[facility] PATHOLOGY MYRHHOKUCO8639[address] [place] [address], Hemoglobin (Bld) [Mass/Vol]10.5 g/dLLow13.9-16.3The [facility] SystemComment on above:Performed By: #### CBC ####[facility] PATHOLOGY HKNLDTTUKP4646[address] [place] [address], [address]FAB (RBC) [Entitic mass]31.5 bcVgprjj09.0-34.0The [facility] SystemComment on above:Performed By: #### CBC ####[facility] PATHOLOGY HQAECGZKSY4837[address] [place] [address], [address]DJES (RBC) [Mass/Vol] 34.4 g/kKFykjbh34.0-35.9The [facility] SystemComment on above:Performed By: #### CBC ####[facility] PATHOLOGY SYGVKOQIGM2044[address] [place] [address], [address]GVH (RBC) [Entitic vol]92 sYHgdagd81-222Wzx [facility] SystemComment on above:Performed By: #### CBC ####[facility] PATHOLOGY XAWCKLADIF1588 [place], [address]Vmctwjrq mean volume (Bld) [Entitic vol]6.4 fLLow 7.5-11.2The [facility] CampusroHealth SystemComment on above:Performed By: #### CBC ####[facility] PATHOLOGY XMWSECKHUS5484[address] [place] [address], [address]Xyyrzlujl (Bld) [#/Vol]183 10*3/wFQrxpfa875-692Spb [facility] SystemComment on above: Performed By: #### CBC ####[facility] PATHOLOGY FBLWAAVQNU8724[address] [place] [address], [address]EOH (Bld) [#/Vol]3.33 10*6/uLLow4.50-5.90The [facility] CampusroHealth SystemComment on above:Performed By: #### CBC ####[facility] PATHOLOGY YFQZXJAHJO3238[address] [place] [address], [address]PEG (Bld) [#/Vol]8.5 10*3/uLNormal4.5-11.5The [facility] CampusroHealth SystemComment on above:Performed By: #### CBC ####[facility] PATHOLOGY JKXFBNBHJF9064[address] [place] [address], Erythrocyte distribution width (RBC) [Ratio]14.7 %High11.5-14.5The [facility] SystemComment on above:Performed By: #### CBC ####[facility] PATHOLOGY YGLORLXLOL5724[address] [place] [address], [address]Dujeobftjy (Bld) [Volume fraction]23.7 %Low41.0-53.0The [facility] CampusroHealth SystemComment on above:Performed By: #### CBC ####[facility] PATHOLOGY LMZDBZSYOS4024[address] [place] [address], Hemoglobin (Bld) [Mass/Vol]7.9 g/dLLow13.9-16.3The [facility] CampusroHealth SystemComment on above:Performed By: #### CBC ####[facility] PATHOLOGY AUTSRRCTME[address] [place] [address], [address]YRV (RBC) [Entitic mass]32.6 cxPowdsm65.0-34.0The [facility] SystemComment on above:Performed By: #### CBC ####[facility] PATHOLOGY LOHEACCEXX5618[address] [place] [address], [address]WARB (RBC) [Mass/Vol] 33.5 g/hVTywvrl40.0-35.9The [facility] SystemComment on above:Performed By: #### CBC ####[facility] PATHOLOGY ABLZFUVRMP4622[address] [place] [address], [address]GCT (RBC) [Entitic vol]97 ePDyjvee80-265Mvr [facility] SystemComment on above:Performed By: #### CBC ####[facility] PATHOLOGY [id number] [place] [address], [phone] mean volume (Bld) [Entitic vol]6.5 fLLow 7.5-11.2The [facility] Campus[facility] SystemComment on above:Performed By: #### CBC ####[facility] PATHOLOGY [id number] [place] [address], [phone] (Bld) [#/Vol]177 10*3/fFHoqmih938-446Xrf [facility] Campusro[facility] SystemComment on above: Performed By: #### CBC ####[facility] PATHOLOGY NERELQXYRB[address] [place] [address], [phone] (Bld) [#/Vol]2.43 10*6/uLLow4.50-5.90The [facility] Campusro[facility] SystemComment on above:Performed By: #### CBC ####[facility] PATHOLOGY [id number] [place] [address], [phone] (Bld) [#/Vol]6.9 10*3/uLNormal4.5-11.5The [facility] CampusroHealth SystemComment on above:Performed By: #### CBC ####[facility] PATHOLOGY DKDQCKEOBI[address] [place] [address], Erythrocyte distribution width (RBC) [Ratio]13.6 %Vgmvbl23.5-14.5The [facility] SystemComment on above:Performed By: #### CBC ####[facility] PATHOLOGY OQUEWMOJZQ[address] [place] [address], [address]Paugdvhhcr (Bld) [Volume fraction]18.3 %Critically low41.0-53.0The [facility] CampusroHealth SystemComment on above:Performed By: #### CBC ####[facility] PATHOLOGY BGOSIZVIWG6727[address] [place] [address], [address]Kdrmznaeby (Bld) [Mass/Vol]6.1 g/dLCritically low13.9-16.3The [facility] CampusroHealth SystemComment on above:Performed By: #### CBC ####[facility] PATHOLOGY BBEQIRRPKW057[address] [place] [address], [address]RTF (RBC) [Entitic mass]33.0 mgRmqudt29.0-34.0The [facility] CampusroHealth SystemComment on above:Performed By: #### CBC ####[facility] PATHOLOGY UBTZLNASSL439[address] [place] [address], [address]BKOZ (RBC) [Mass/Vol]33.3 g/wEJcompt84.0-35.9The [facility] Comment on above:Performed By: #### CBC ####[facility] PATHOLOGY MAGQRVTIAF[address] [place] [address], [address]BPK (RBC) [Entitic vol]99 fLNormal 80-100The [facility] SystemComment on above:Performed By: #### CBC ####[facility] PATHOLOGY OXNXNXENQK[address] [place] [address], [address]Mnftqqpi mean volume (Bld) [Entitic vol]6.9 fLLow7.5-11.2The [facility] CampusroHealth SystemComment on above:Performed By: #### CBC ####[facility] PATHOLOGY ONDROWDMGC7849[address] [place] [address], [address]Rfnnaddlx (Bld) [#/Vol]170 10*3/oRXvzoxg827-444Pbj [facility] SystemComment on above:Performed By: #### CBC ####[facility] PATHOLOGY TQBJJWKJLW8895[address] [place] [address], [address]PYC (Bld) [#/Vol]1.85 10*6/uLLow4.50-5.90The [facility] CampusroHealth SystemComment on above:Performed By: #### CBC ####[facility] PATHOLOGY SBOCNSTHMR3980[address] [place] [address], [address]FKQ (Bld) [#/Vol]5.6 10*3/uLNormal4.5-11.5The [facility] SystemComment on above: Performed By: #### CBC ####[facility] PATHOLOGY GMOFUAVRTK4648[address] [place] [address], [address]ISVTMAOY KINASEon 69-24-5885RP [Catalytic activity/Vol]318 U/FXnil08-793Vef [facility] SystemComment on above:Performed By: #### CK, MG, PHOS, TRIG, CH8 ####[facility] PATHOLOGY RZINAXFRZE9250[address] [place] [address], [address]URETOQMHXHOBdm 68-73-0722Ayouzoqa [Moles/Vol]98 mmol/ZVyppll05-446Cng [facility] SystemComment on above:Performed By: #### CR GLU, CR BGA, CR COOX, CR ICA, LACT, CR LYTES ####[facility] PATHOLOGY WEMRVJDKPO9574[address] [place] [address], [address]Zbxfyvmur [Moles/Vol]4.2 mmol/LNormal 3.5-5.0The [facility] SystemComment on above:Performed By: #### CR GLU, CR BGA, CR COOX, CR ICA, LACT, CR LYTES ####[facility] PATHOLOGY EMHVZAJHGN0742GdupiVsukzr[address] [place] [address], [address]Wscwgs [Moles/Vol]131 mmol/EYid809-398Ulx [facility] SystemComment on above:Performed By: #### CR GLU, CR BGA, CR COOX, CR ICA, LACT, CR LYTES ####[facility] PATHOLOGY TOXYNEQUJU5297HfblrJndutx[address] [place] [address], [address]Vtawqoer [Moles/Vol]96 mmol/UWaz78-374Lvx [facility] SystemComment on above:Performed By: #### CR COOX, CR LYTES, LACT, CR GLU, CR BGA, CR ICA ####[facility] PATHOLOGY WCMMQAVAZE9633AiofzEigrwd[address] [place] [address], [address]Wmbgovvgp [Moles/Vol]4.2 mmol/LNormal3.5-5.0The [facility] SystemComment on above:Performed By: #### CR COOX, CR LYTES, LACT, CR GLU, CR BGA, CR ICA ####[facility] PATHOLOGY GWIJKROICG9839UsempRcdnvh[address] [place] [address], [address]Bjugur [Moles/Vol]132 mmol/YSzs796-708Lig [facility] SystemComment on above:Performed By: #### CR COOX, CR LYTES, LACT, CR GLU, CR BGA, CR ICA ####[facility] PATHOLOGY ITKDKKWUWC8115GarydHgkzeu[address] [place] [address], [address]KBDec 33-24-2912QN ORDER ITEMProduct status info to followNoSouthwest General Health Centere [facility] SystemComment on above:Performed By: #### FFO ####[facility] PATHOLOGY SRWBOZLFFZ0790[address] [place] [address], GLUCOSE, WHOLE BLOODon 83-03-8589GN AVX733 mg/lOYbvq91-838Pjr [facility] Comment on above:Performed By: #### CR GLU, CR BGA, CR COOX, CR ICA, LACT, CR LYTES ####[facility] PATHOLOGY TMZRYEIPHJ6256FqigbRfcncg[address] [place] [address], CR EIO671 mg/zATfcj40-218Jhc [facility] SystemComment on above:Performed By: #### CR COOX, CR LYTES, LACT, CR GLU, CR BGA, CR ICA ####[facility] PATHOLOGY KWWTMVQEMU6789VocipZdtarp[address] [place] [address], [address]QUNZZI ACIDon 05-20-2024 CR LACT1.1 mmol/LNormal0.5-1.6The [facility] SystemComment on above:Performed By: #### CR GLU, CR BGA, CR COOX, CR ICA, LACT, CR LYTES ####[facility] PATHOLOGY DRSWOFUFNW3363AocbsHyehzm[address] [place] [address], [address]BD LACT0.9 mmol/LNormal 0.5-1.6The [facility] SystemComment on above:Performed By: #### CR COOX, CR LYTES, LACT, CR GLU, CR BGA, CR ICA ####[facility] PATHOLOGY XRBDXWGKTM8443GmhxtKanaog[address] [place] [address], [address]AD LACT0.8 mmol/LNormal0.5-1.6The [facility] Hospital[facility] SystemComment on above:Performed By: #### LACT, CR BGA ####[facility] PATHOLOGY GLZUIQKFUD[address]27[address] [place] [address], [address]MVDQLNOMJcd 05-20-2024 Magnesium [Mass/Vol]2.0 mg/dLNormal1.9-2.7The [facility] SystemComment on above:Performed By: #### CK, MG, PHOS, TRIG, CH8 ####[facility] PATHOLOGY TGDUNDRSFW[address] [place] [address], [address]OD Noteon 05-20-2024 General Contractor Authentication Interface Message TextNo[facility] System OR Nursingon 31-75-6050Iomqzdgalsudk Authentication Interface Message TextReport called to 5w RN 1424NoMet[facility] SystemPARTIAL THROMBOPLASTIN TIMEon 11-48-4291qFDF Coag (Bld) [Time]28 eZnfwwh44-36Jba [facility] SystemComment on above:Performed By: #### APTT, PT ####[facility] PATHOLOGY VWUNPRATZP6884[address] [place] [address], [address]XGHOLROWCGfy 37-91-1748Qaokefrcf [Mass/Vol]2.2 mg/dLLow2.5-5.0The [facility] SystemComment on above:Performed By: #### CK, MG, PHOS, TRIG, CH8 ####[facility] PATHOLOGY XFRAHYLWQG4485[address] [place] [address], [address]LPQWWC STATUSon 35-97-8521GHTMP PRODUCT [id number] [facility] SystemComment on above:Performed By: #### FFU ####[facility] PATHOLOGY TTYHKZDWLZ5237[address] [place] [address], [address]IVUWP PRODUCT CODE [id number] [facility] SystemComment on above:Performed By: #### FFU ####[facility] PATHOLOGY JFEIYHTFFT8713[address] [place] [address], [address]KYBYF PRODUCT [id number] [facility] SystemComment on above:Performed By: #### FFU ####S PATHOLOGY VOTMUANTKH9557[address] [place] [address], [address]ZRXMJ PRODUCT DESCRIPTIONFFPNBethesda North Hospital SystemComment on above:Performed By: #### FFU ####S PATHOLOGY XXKKUGKZTO6344[address] [place] [address], [address]SCQSS PRODUCT STATUSReturned to d BnkNBethesda North Hospital SystemComment on above:Performed By: #### FFU ####S PATHOLOGY YAVFFBBJHK1979[address] [place] [address], [address]EKNCH PRODUCT STATUS Released to [facility] SystemComment on above:Performed By: #### FFU ####[facility] PATHOLOGY QGSFHDIHTU3201[address] [place] [address], BLOOD PRODUCT UNIT [id number] [facility] SystemComment on above:Performed By: #### FFU ####S PATHOLOGY JTXZDXWEMD[address] [place] [address], [address]QCXNN PRODUCT UNIT [id number] [facility] SystemComment on above:Performed By: #### FFU ####[facility] PATHOLOGY CRNSMQTYGL6385[address] [place] [address], [address]YMHYS PRODUCT UNIT INFO [id number] [facility] SystemComment on above:Performed By: #### FFU ####S PATHOLOGY UMVVXFJTQV7754[address] [place] [address], BLOOD PRODUCT UNIT [id number] [facility] SystemComment on above:Performed By: #### FFU ####S PATHOLOGY SVYJOBGYPL9049[address] [place] [address], [address]AZECO PRODUCT UNIT [id number]. [facility] SystemComment on above:Result Comment: AB PosPerformed By: #### FFU ####[facility] PATHOLOGY MHMBZNLOUI3708[address] [place] [address], [address]KCTXV PRODUCT UNIT [id number]. [facility] SystemComment on above:Result Comment: A Pos Performed By: #### FFU ####[facility] PATHOLOGY RRBFUFEIRH0534[address] [place] [address], [address]UNHXFHAZHTT TIME AND INRon 13-52-9638ORG Coag (PPP) [Relative time]0.95 {INR}Normal0.90-1.10The [facility] SystemComment on above:Performed By: #### APTT, PT ####[facility] PATHOLOGY NSLJSWYRWO5775[address] [place] [address], [address]RC Coag (PPP) [Time]10.6 sNormal9.7-12.9The [facility] SystemComment on above:Performed By: #### APTT, PT ####[facility] PATHOLOGY NCBLEZWYCM8879[address] [place] [address], [address]Cpkjsudlhaww 11-27-1183Avyjqbumzeria Authentication Interface Message TextInvalid Interpretation CodeThe [facility] SystemProgress Noteson 05-20-2024 General Contractor Authentication Interface Message TextNo[facility] System General Contractor Authentication Interface Message TextNo[facility] System RED BLOOD CELL COMPONENTon 56-10-8715DI ORDER ITEMProduct status info to follow NormalHocking Valley Community Hospital SystemComment on above:Performed By: #### RBO ####[facility] PATHOLOGY UVEKJXHNEQ[address] [place] [address], [address]MM ORDER ITEM Product status info to followNoMetroHealth Parma Medical Center SystemComment on above: Performed By: #### RBO ####[facility] PATHOLOGY DWSVBUPPYO9890[address] [place] [address], [address]DPO BLOOD CELL UNIT STATUSon 09-78-9200KJKWC PRODUCT [id number] [facility] SystemComment on above:Performed By: #### RBU ####[facility] PATHOLOGY JKUFNRRZGK8194[address] [place] [address], [address]IJJZM PRODUCT [id number] [facility] SystemComment on above:Performed By: #### RBU ####[facility] PATHOLOGY SAYWRKRQKF556[address] [place] [address], [address]POXLE PRODUCT DESCRIPTIONRed Blood CellsNormThe University of Toledo Medical Centere [facility] SystemComment on above:Performed By: #### RBU ####S PATHOLOGY GJQITMDWTZ2868 [place], [address]HLJIV PRODUCT STATUS TransfusedNoMet[facility]Health [facility] SystemComment on above:Performed By: #### RBU ####S PATHOLOGY GXIRQMKGCK[address] [place] [address], [address]OITOV PRODUCT STATUSReturned to Bld BnkNormalHocking Valley Community Hospital SystemComment on above: Performed By: #### RBU ####[facility] PATHOLOGY LSGHWKHHIM8645[address] [place] [address], [address]YILNM PRODUCT UNIT [id number] [facility] SystemComment on above:Performed By: #### RBU ####[facility] PATHOLOGY TSEVDWQQIX1358[address] [place] [address], [address]QFAZB PRODUCT UNIT INFO [id number] [facility] SystemComment on above:Performed By: #### RBU ####[facility] PATHOLOGY UUCWKDGYWY9898[address] [place] [address], BLOOD PRODUCT UNIT [id number] [facility] SystemComment on above:Performed By: #### RBU ####[facility] PATHOLOGY GMZWYDBJWU5077[address] [place] [address], [address]OYAUV PRODUCT UNIT [id number] [facility] SystemComment on above:Performed By: #### RBU ####[facility] PATHOLOGY CDZWPCNPKL1606[address] [place] [address], [address]YCVWO PRODUCT UNIT TYPE 6200St[facility] SystemComment on above:Result Comment: A PosPerformed By: #### RBU ####S PATHOLOGY UQBJNONGBW4408[address] [place] [address], [address]YITAXYARXU INTERPRETATIONCompatible (E)NormalHocking Valley Community Hospital System Comment on above:Performed By: #### RBU ####[facility] PATHOLOGY CLFFSSUTYW7497[address] [place] [address], [address]WTDZD PRODUCT [id number] [facility] SystemComment on above:Performed By: #### RBU ####[facility] PATH[facility]Y XXHZTHLAHY2830 [place], [address]LITFS PRODUCT DESCRIPTIONRed Blood CellsNormSycamore Medical Center SystemComment on above:Performed By: #### RBU ####[facility] PATHOLOGY OLNSFVJVYQ1177[address] [place] [address], [address]DEIIM PRODUCT STATUSTransfusedNormalThe [facility] SystemComment on above:Performed By: #### RBU ####[facility] PATHOLOGY RNIQAOGQHW629[address] [place] [address], [address]CYZOU PRODUCT UNIT [id number] [facility] SystemComment on above:Performed By: #### RBU ####S PATHOLOGY DYOOXFRPGC5904[address] [place] [address], [address]ICXRA PRODUCT UNIT TYPE 6200NoMet[facility]Health [facility] SystemComment on above:Result Comment: A PosPerformed By: #### RBU ####S PATHOLOGY BJIBZPIQBC0766[address] [place] [address], [address]KWLGVRWOWV INTERPRETATIONCompatible (E)NormalThe [facility] Comment on above:Performed By: #### RBU ####S PATHOLOGY JKZWBAWWDW6520[address] [place] [address], [address]FTSZLSOHRON CULTURE, MISCon 05-20-2024 MICNoMet[facility]Health [facility] Center SystemComment on above:Order Comment: THIS IS A PRELIMINARY REPORT. Final results will follow. Results of the preliminary report may be modified as additional information becomes available.Performed By: #### C RESP ####[facility] Smtbqqomh[address] [place], [place] [address] RESPIRATORY CULTURE, MISCNormalThe [facility] SystemComment on above:Order Comment: THIS IS A PRELIMINARY REPORT. Final results will follow. Results of the preliminary report may be modified as additional information becomes available. Performed By: #### C RESP ####[facility] S[address]hrzmzl[address] [place], [place] [address]Student Noteon 27-94-6285Tcqmsjekcijpn Authentication Interface Message TextNoMet[facility] SystemTRIGLYCERIDESon 67-95-5609Gjnbvgztqpkh [Mass/Vol]84 mg/dLNormal<150The [facility] CampusroShel[facility] SystemComment on above:Result Comment: Normal: < 150 mg/dLBorderline High: 150-199 mg/dLHigh: 200-499 mg/dLVery High: > = 500 mg/dLPerformed By: #### CK, MG, PHOS, TRIG, CH8 ####[facility] PATH[facility] PSWJTHPZBT7669 [place], [address]LZFJ AND SCREENon 62-34-9939VWJ and Rh group Nom (Bld)Blood group A Rh(D) positive NormalThe [facility] SystemComment on above:Performed By: #### TS ####S PATHOLOGY HJLUUYITZJ2192 [place], [address]VKOU INT NegativeNormalThe [facility] SystemComment on above:Performed By: #### TS ####S PATHOLOGY YJGTDUMBOV7067 [place], [address]VW CHEST AP OR PA 1 VIEWon 19-99-7719DP CHEST AP OR PA 1 VIEWNormalThe [facility] CampusroHealth SystemXR CHEST AP OR PA 1 VIEWNormalThe [facility] CampusroHealth SystemXR Chest Single viewon 64-35-3810KABTVKMJIWQ: XR CHEST AP OR PA 1 VIEW [...] Chest Single viewOrdered By: Nik Nguyen on 85-81-3193DugfnStivhi Work Phone: BASIC METABOLIC PANELon 50-06-0900Yrhmb gap [Moles/Vol]15 mmol/JJoqawl56-60Tyk [facility] SystemComment on above:Performed By: #### CH8 ####[facility] PATHOLOGY XVMLPYIWNO1058 [place], [address]Ccycndm [Mass/Vol]8.7 mg/dLNormal8.6-10.3The [facility] CampusroHealth SystemComment on above:Performed By: #### CH8 ####[facility] PATHOLOGY TBDAPLFIDA9037 [place], [address]Glrhjbqs [Moles/Vol]95 mmol/VCsf26-406Vwh [facility] SystemComment on above:Performed By: #### CH8 ####[facility] PATHOLOGY GNWEFNAGCN1882 [place], [address]HK8 [Moles/Vol]23 mmol/PMtdhuh88-15Adn [facility] SystemComment on above:Performed By: #### CH8 ####[facility] PATHOLOGY MPNGPJEWRO8886 [place], Creatinine [Mass/Vol]1.23 mg/dLNormal0.70-1.30The [facility] CampusroHealth SystemComment on above:Performed By: #### CH8 ####[facility] PATHOLOGY VHNBXYDUBK0148 [place], [address]DJPUJFBCB GFR (CKD-EPI)59 mL/min/1.73sqmLow>=60The [facility] SystemComment on above:Result Comment: 2020 CKD EPI [...] Inclusion of Race in Diagnosing Kidney Disease. English Journal of Kidney Diseases 2021;79(2):268-88.e1.2. N Engl J Med 2020 Vol. 385 Issue 19 Pages 6865-5486Performed By: #### CH8 ####S PATHOLOGY KQOLENPLGZ9242 [place], [address]Cbzacyd [Mass/Vol]178 mg/nQFpgl40-086Mzy [facility] CampusroHealth SystemComment on above:Performed By: #### CH8 ####S PATHOLOGY AJPAEPEVIC3884 [place], [address]Xcljfvhmf [Moles/Vol]5.6 mmol/LHigh3.5-5.0The [facility] System Comment on above:Result Comment: Hemolysis presentPerformed By: #### CH8 ####S PATHOLOGY ZVJLUTFFRG[address] [place] [address], [address]Chpbrc [Moles/Vol]127 mmol/VFkb703-069Qei [facility] CampusroHealth SystemComment on above:Performed By: #### CH8 ####S PATHOLOGY QPVZONHMWF9515[address] [place] [address], [address]Xcdp nitrogen [Mass/Vol]40 mg/dLHigh7-25The [facility] SystemComment on above:Performed By: #### CH8 ####S PATHOLOGY XWNLPGFKNK[address] [place] [address], [address]Jhphu gap [Moles/Vol]12 mmol/SIeqhze53-70Pxb [facility] SystemComment on above:Performed By: #### CHI PRADO CH8 ####S PATHOLOGY HHUWEVXOAI[address] [place] [address], [address]Ztkuwhp [Mass/Vol]8.5 mg/dLLow8.6-10.3The [facility] SystemComment on above:Performed By: #### CHI PRADO CH8 ####S PATHOLOGY OHBSVWJXGY5537 [place], [address]Uwprixql [Moles/Vol]98 mmol/KZyyusr04-441Kgo [facility] SystemComment on above:Performed By: #### CHI PRADO CH8 ####[facility] EEGUJRMOJL7843 [place], [address]SJ7 [Moles/Vol]27 mmol/JMsdbxx29-20Itu [facility] Hospital[facility] SystemComment on above:Performed By: #### CHI PRADO CH8 ####[facility] PATH[facility]Y WWLHUULXAL8926 [place], [address]Uoapavthvc [Mass/Vol]1.67 mg/dLHigh0.70-1.30The [facility] CampusroHealth SystemComment on above:Performed By: #### CHI PRADO CH8 ####[facility] PDFWHTHCHV9868 [place], [address]ANMKNLKMJ GFR (CKD-EPI)41 mL/min/1.73sqmLow>=60The [facility] CampusroHealth SystemComment on above:Result Comment: 2020 CKD EPI [...] Inclusion of Race in Diagnosing Kidney Disease. English Journal of Kidney Diseases 2021;79(2):268-88.e1.2. N Engl J Med 1 Vol. 385 Issue 19 Pages 1739-7643Performed By: #### CHI PRADO CH8 ####[facility] HZTTZQDTGU4367 [place], [address]Ffozorl [Mass/Vol]117 mg/aSDbus44-342 The [facility] SystemComment on above:Performed By: ###CHI VALDEZ CH8 ####[facility] PATH[facility] YDVURXPDDG6233 [place], [address]Rbnkosqhr [Moles/Vol]5.6 mmol/LHigh3.5-5.0The [facility] SystemComment on above:Performed By: ###CHI VALDEZ CH8 ####[facility] BLYSIVNEMI3555 [place], [address]Pulrsn [Moles/Vol]131 mmol/FPka286-438Laf [facility] SystemComment on above:Performed By: #### CHI PRADO CH8 ####[facility] RYVEROOMXZ7663 [place], [address]Hvuo nitrogen [Mass/Vol]47 mg/dLHigh7-25The [facility] SystemComment on above:Performed By: ###RAD VALDEZS, CH8 ####[facility] PATHOLOGY AOXERWTIVF1185 [place], [address]SAGBR GAS, ARTERIALon 68-72-0086QR ABE1.2 mmol/LNormal-2.0-3.0The [facility] CampusroHealth SystemComment on above:Performed By: #### CR BGA ####[facility] PATHOLOGY VSTCNLUAQG[address] [place] [address], [address]EX JGI925.3 mm HgNormal 35.0-45.0The [facility] CampusroHealth SystemComment on above:Performed By: #### CR BGA ####[facility] PATHOLOGY WIHLWXMKCU[address] [place] [address], [address]VE PHA7.117Twzsmd6.350-7.450The [facility] CampusroHealth SystemComment on above:Performed By: #### CR BGA ####[facility] PATHOLOGY UBXWRHRFXA[address] [place] [address], [address]FX PO294 mm BiPzvkpr37-079Mbv [facility] SystemComment on above: Performed By: #### CR BGA ####[facility] PATHOLOGY UYPMZPNBKE[address] [place] [address], [address]KDZ6 (CATEGORY)60%NormalThe [facility] Campusro[facility] System Comment on above:Performed By: #### CR BGA ####[facility] PATHOLOGY ITIQNZZCVE7[address] [place] [address], [address]BIW4 (Bld) [Moles/Vol]26 mmol/LNormal 21-28The [facility] CampusroHealth SystemComment on above:Performed By: #### CR BGA ####[facility] PATHOLOGY IRRHUJTYSP5422[address] [place] [address], [address]DVKWMfof NormalThe [facility] CampusroHealth SystemComment on above:Result Comment: 450 x 24 +5 Performed By: #### CR BGA ####[facility] PATHOLOGY MIKZGHPGGL59[address] [place] [address], [address]Ceqyfb saturation in Blood97.3 %Jewwyz70.0-99.0The [facility] CampusroHealth SystemComment on above:Performed By: #### CR BGA ####[facility] PATHOLOGY DYFDARVEVE67[address] [place] [address], [address]TP ABE0.0 mmol/LNormal -2.0-3.0[facility] CampusroHealth SystemComment on above:Performed By: #### CR BGA ####[facility] PATHOLOGY [id number] [place] [address], [id number] CUC893.9 mm AwBgpu27.0-45.0[facility] CampusroHealth SystemComment on above:Performed By: #### CR BGA ####[facility] PATHOLOGY [id number] [place] [address], CR [id number] CampusroHealth SystemComment on above:Performed By: #### CR BGA ####[facility] PATHOLOGY ABHIAYDNTO[address] [place] [address], [address]NH AF9918 mm UaRmustl91-123Zwh [facility] CampusroHealth SystemComment on above: Performed By: #### CR BGA ####[facility] PATHOLOGY HBSINBCHUC[address] [place] [address], [address]VZP2 (CATEGORY)50%NormalThe [facility] Comment on above:Result Comment: 50LPerformed By: #### CR BGA ####[facility] PATHOLOGY GBIIFGDJRR[address] [place] [address], [address]HEP7 (Bld) [Moles/Vol] 27 mmol/KHsmvyp74-99Idd [facility] SystemComment on above:Performed By: #### CR BGA ####[facility] PATHOLOGY ZPXNBWPANI[address] [place] [address], MODENasal CanulaNormalThe [facility] SystemComment on above:Performed By: #### CR BGA ####[facility] PATHOLOGY OUYGHRGSYQ[address] [place] [address], [address]Ytzudf saturation in Blood96.4 %Agahus49.0-99.0The [facility] Comment on above:Performed By: #### CR BGA ####[facility] PATHOLOGY FHSZAFTGQO[address] [place] [address], [address]QFBBRHUY BLOOD COUNTon 05-19-2024 Erythrocyte distribution width (RBC) [Ratio]13.8 %Vomvfe38.5-14.5The [facility] HospitalHealth SystemComment on above:Performed By: #### CBC ####[facility] PATHOLOGY KGTKSHEVNL[address] [place] [address], [address]Hyawobqmts (Bld) [Volume fraction]23.1 %Low41.0-53.0The [facility] CampusroHealth SystemComment on above:Performed By: #### CBC ####[facility] PATHOLOGY QWZEDTWYGY[address] [place] [address], Hemoglobin (Bld) [Mass/Vol]7.8 g/dLLow13.9-16.3The [facility] CampusroHealth SystemComment on above:Performed By: #### CBC ####[facility] PATHOLOGY WZRVQRIFEX[address] [place] [address], [address]BPG (RBC) [Entitic mass]33.4 meAtlxmg52.0-34.0The [facility] HospitalHealth SystemComment on above:Performed By: #### CBC ####[facility] PATHOLOGY QNWOHVCDTX8440[address] [place] [address], [address]XKTS (RBC) [Mass/Vol] 33.6 g/dSOqhysm36.0-35.9The [facility] HospitalHealth SystemComment on above:Performed By: #### CBC ####[facility] PATHOLOGY VMQTIJRCSK61[address] [place] [address], [address]PHQ (RBC) [Entitic vol]99 yJJbjygu69-193Ilx [facility]Health SystemComment on above:Performed By: #### CBC ####[facility] PATHOLOGY TKZTDADXQW[address]87[address] [place] [address], [address]Nhgqlioa mean volume (Bld) [Entitic vol]7.2 fLLow 7.5-11.2The [facility] HospitalHealth SystemComment on above:Performed By: #### CBC ####[facility] PATHOLOGY DWBJAVQZJC[address] [place] [address], [address]Sfcanixqy (Bld) [#/Vol]161 10*3/nKBmhjgk616-650Sfj [facility]Health SystemComment on above: Performed By: #### CBC ####[facility] PATHOLOGY EVEXPFBFIO[address] [place] [address], [address]NSA (Bld) [#/Vol]2.33 10*6/uLLow4.50-5.90The [facility] CampusroHealth SystemComment on above:Performed By: #### CBC ####[facility] PATHOLOGY BAWGHHKEDL[address] [place] [address], [address]HFX (Bld) [#/Vol]8.4 10*3/uLNormal4.5-11.5The [facility] CampusroHealth SystemComment on above:Performed By: #### CBC ####[facility] PATHOLOGY HZZQLPCOFH[address] [place] [address], Erythrocyte distribution width (RBC) [Ratio]13.6 %Xktdub70.5-14.5The [facility] CampusroHealth SystemComment on above:Performed By: #### CBC ####[facility] PATHOLOGY BXPUSEGYTQ0650[address] [place] [address], [address]Ayzmjheevs (Bld) [Volume fraction]22.3 %Low41.0-53.0The [facility] CampusroHealth SystemComment on above:Performed By: #### CBC ####[facility] PATHOLOGY CGMWTDGZGL6315[address] [place] [address], Hemoglobin (Bld) [Mass/Vol]7.4 g/dLLow13.9-16.3The [facility] CampusroHealth SystemComment on above:Performed By: #### CBC ####[facility] PATHOLOGY OKOEAVGUJN[address]185[address] [place] [address], [address]QNL (RBC) [Entitic mass]33.0 kfSmmwtt01.0-34.0The [facility] CampusroHealth SystemComment on above:Performed By: #### CBC ####[facility] PATHOLOGY HHYYXBZBWR[address] [place] [address], [address]BFOB (RBC) [Mass/Vol] 33.1 g/uRKregmb08.0-35.9The [facility] CampusroHealth SystemComment on above:Performed By: #### CBC ####[facility] PATHOLOGY SUNUTTUAMX5754[address] [place] [address], [address]NRU (RBC) [Entitic vol]100 dTNybkah94-906Zpx [facility] CampusroHealth SystemComment on above:Performed By: #### CBC ####[facility] PATHOLOGY HTVYGOHQJA6968[address] [place] [address], [address]Jntzmtyn mean volume (Bld) [Entitic vol]7.2 fLLow 7.5-11.2The [facility] SystemComment on above:Performed By: #### CBC ####[facility] PATHOLOGY RYBOFTLRPL0228 [place], [address]Huetqyvyd (Bld) [#/Vol]157 10*3/tTFbaebu376-480Mfu [facility] SystemComment on above: Performed By: #### CBC ####[facility] PATHOLOGY ICCZXRCUFX6153 [place], [address]PGT (Bld) [#/Vol]2.24 10*6/uLLow4.50-5.90The [facility] SystemComment on above:Performed By: #### CBC ####[facility] PATHOLOGY MQGWGWAHWC0758 [place], [address]OSJ (Bld) [#/Vol]5.7 10*3/uLNormal4.5-11.5The [facility] SystemComment on above:Performed By: #### CBC ####[facility] PATHOLOGY ZZYBTNMTLF9080 [place], [place], CT CHEST W/O CONTRASTon 61-17-7303VI CHEST W/O CONTRASTNormalThe [facility] SystemCT Chest WO contrastOrdered By: Aramis Lamar on 13-75-1779VZ IMT998.1 (mGy.cm)[facility] Work Phone: ct SeriesTopogram,CHEST WOMetroHealth Work Phone: cTDI VOL0.03 (mGy),7.42 (mGy)[facility] Work Phone: [facility] Body Dosimetry Phantom,IEC Body Dosimetry PhantomUpstate University Hospital Community CampusroHealth Work Phone: [facility] Work Phone: ct Chest WO contraston 62-48-4653KCZZOKWBREO: CT CHEST W/O CONTRAST 05/19/2024 09:45 AM [...] the right lateral chest wall. MACRO: None [facility] HospitalRadiology Study observation (narrative)[facility] Plan Noteon 72-49-1421Qujoushnylmml Authentication Interface Message TextNormalThe [facility] SystemConsultson 52-04-7095Kosviuookkzjz Authentication Interface Message TextNormSycamore Medical Center SystemMAGNESIUMon 13-21-8708Npwenkjay [Mass/Vol]2.5 mg/dLNormal1.9-2.7The [facility] SystemComment on above:Performed By: #### CHI PRADO CH8 ####[facility] YWLGNWEQHD5478 [place], [address]ZFNJ SCREENon 53-04-4950IBDR DNA JASMINA+probe Ql (Unsp spec)CMR: No methicillin resistant Staphylococcus aureus isolated.NormalNo methicillin resistant Staphylococcus aureus isolated.The [facility] SystemComment on above: Performed By: #### CMR ####[facility] [address] [place], [place]PHOSPHORUSon 09-26-5024Qztmaocwc [Mass/Vol]3.2 mg/dLNormal2.5-5.0 The [facility] SystemComment on above:Performed By: #### CHI PRADO CH8 ####[facility] PATHOLOGY GGPDGUGCNT4668 [place], [address]Uvgw- Procedure Noteon 84-08-9826Mlehlkqqhdolc Authentication Interface Message Text NormalThe [facility] SystemProcedureson 71-97-5656Gqgkttmmzimpq Authentication Interface Message TextNo[facility] SystemTranscription Authentication Interface Message TextNo[facility] SystemProgress Noteson 05-19-2024 General Contractor Authentication Interface Message TextNo[facility] System General Contractor Authentication Interface Message TextNormSycamore Medical Center System General Contractor Authentication Interface Message TextNo[facility] System General Contractor Authentication Interface Message TextNo[facility] System General Contractor Authentication Interface Message TextNo[facility] System General Contractor Authentication Interface Message [id number]: trauma team at the bedside to intubate pt. 1426: 14 etomidate given, 70 of Koko given 1429: #7.5 tube and 24 @ lips with positive color change 1433: Pressure 55/46, 100 phenyl mcg/mL given 1436: Levo started 1442: Waiting for XR confirmationNormalThe [facility] SystemTranscription Authentication Interface Message TextNormalThe [facility] SystemTranscription Authentication Interface Message TextNormalThe [facility] SystemTranscription Authentication Interface Message TextNormalThe [facility] SystemTranscription Authentication Interface Message TextNormalThe [facility] SystemStudent Noteon 39-16-8596Cftrcheikbxlw Authentication Interface Message TextNormalThe [facility] SystemTranscription Authentication Interface Message TextNormalThe [facility] SystemXR CHEST AP OR PA 1 VIEWon 13-44-4558LU CHEST AP OR PA 1 VIEW NormalThe [facility] SystemXR CHEST AP OR PA 1 VIEWNormalThe [facility] XR Chest Single viewon 98-18-2420NPDOGVHPFBB: XR CHEST AP OR PA 1 VIEW [...] Chest Single viewOrdered By: Micah Lynne on 95-06-2844AbxcpEhrkal Work Phone: aNTY FXA-LMW HEPARINon 85-42-9646LSVX FXA-LMW HEPARIN ASSAY0.44 IU/mLNormalThe [facility] SystemComment on above:Order Comment: The recommended therapeutic range for treatment of thrombosis with Low Molecular Weight Heparin is 0.5 - 1.0 IU/mLThe recommended range for VTE prophylaxis with Low Molecular Weight Heparin is 0.2 - 0.4 IU/mL.Performed By: #### ANGELINA ####[facility] PATHOLOGY VEXJZBZUVQ[address] [place] [address], [address]YLVNX METABOLIC PANELon 03-50-7263Qtuzf gap [Moles/Vol]13 mmol/TWzhyfw75-85Wmi [facility] SystemComment on above:Performed By: #### CH8 ####S PATHOLOGY PSFKZHIXIH4147 [place], [address]Yavnsyy [Mass/Vol]8.4 mg/dLLow8.6-10.3The [facility] SystemComment on above:Performed By: #### CH8 ####S PATHOLOGY WKLYHCJSYB2891 [place], [place], Chloride [Moles/Vol]98 mmol/IUnfcie73-922Kgy [facility] SystemComment on above: Performed By: #### CH8 ####S PATHOLOGY HZPZQMZRFM6408 [place], [address]WS7 [Moles/Vol]23 mmol/YIfociy65-33Smx [facility] CampusroHealth SystemComment on above:Performed By: #### CH8 ####S PATHOLOGY KLPDFOEITH1216 [place], [address]Cepgffmvnk [Mass/Vol]2.09 mg/dLHigh 0.70-1.30The [facility] CampusroHealth SystemComment on above:Performed By: #### CH8 ####[facility] PATHOLOGY AENCWSVNRG[address] [place] [address], [address]FYBXEFKRJ GFR (CKD-EPI)31 mL/min/1.73sqmLow>=60The [facility] SystemComment on above:Result Comment: 2020 CKD EPI [...] Inclusion of Race in Diagnosing Kidney Disease. English Journal of Kidney Diseases 202;79(2):268-88.e1.2. N Engl J Med 1 Vol. 385 Issue 19 Pages 7057-1234Performed By: #### CH8 ####[facility] PATHOLOGY ORQHODTFSN5525 [place], [address]Fmjvxbt [Mass/Vol]106 mg/dLNormal 74-109The [facility] SystemComment on above:Performed By: #### CH8 ####S PATHOLOGY EEFYKFVZRV5474 [place], [address]Wfhljahbh [Moles/Vol]6.6 mmol/LCritically high3.5-5.0The [facility] SystemComment on above:Result Comment: Hemolysis presentPerformed By: #### CH8 ####S PATHOLOGY ROARCTLEZE6774 [place], [address]Boucbr [Moles/Vol]127 mmol/LCwn572-007Cnk [facility] CampusroHealth SystemComment on above:Performed By: #### CH8 ####S PATHOLOGY YZTZTVTHFJ2668 [place], [address]Mzwq nitrogen [Mass/Vol]50 mg/dLHigh7-25The [facility] SystemComment on above: Performed By: #### CH8 ####[facility] PATHOLOGY MFODJPDRZN9313 [place], [address]Popna gap [Moles/Vol]13 mmol/SXfopqr80-46Gyk [facility] CampusroHealth SystemComment on above:Performed By: #### CH8 ####[facility] PATHOLOGY RKWXZRBMUJ8[address] [place] [address], [address]Ammheir [Mass/Vol]6.7 mg/dLLow8.6-10.3The [facility] CampusroHealth SystemComment on above:Performed By: #### CH8 ####[facility] PATHOLOGY OHFFYSJIPO[address] [place] [address], Chloride [Moles/Vol]103 mmol/FNlmpxy43-124Qga [facility] CampusroHealth SystemComment on above:Performed By: #### CH8 ####[facility] PATHOLOGY EKRMYVOZMO00[address] [place] [address], [address]HH5 [Moles/Vol]19 mmol/DGvu18-21Dhx [facility] CampusroHealth SystemComment on above:Performed By: #### CH8 ####[facility] PATHOLOGY RRNGJAONTM9964[address] [place] [address], [address]Vozrlrqyfc [Mass/Vol]1.68 mg/dLHigh 0.70-1.30The [facility] CampusroHealth SystemComment on above:Performed By: #### CH8 ####[facility] PATHOLOGY LGOLAGVZCM0930[address] [place] [address], [address]WTKLWOYQV GFR (CKD-EPI)40 mL/min/1.73sqmLow>=60The [facility] SystemComment on above:Result Comment: 2020 CKD EPI [...] Inclusion of Race in Diagnosing Kidney Disease. English Journal of Kidney Diseases 2021;79(2):268-88.e1.2. N Engl J Med 1 Vol. 385 Issue 19 Pages 4741-6614Performed By: #### CH8 ####[facility] PATHOLOGY JYPOXIBPHP2295 [place], [address]Qxnujcs [Mass/Vol]74 mg/zBDyoygo62-091 The [facility] CampusroHealth SystemComment on above:Performed By: #### CH8 ####[facility] PATHOLOGY EGFKUODYOL9404 [place], [address]Kyagdoceg [Moles/Vol] 5.4 mmol/LHigh3.5-5.0The [facility] CampusroHealth SystemComment on above:Performed By: #### CH8 ####[facility] PATHOLOGY UBNAURKJLP[address] [place] [address], Sodium [Moles/Vol]130 mmol/XIvj684-803Zhb [facility] CampusroHealth SystemComment on above: Performed By: #### CH8 ####[facility] PATHOLOGY IAYQMAFNXJ75[address] [place] [address], [address]Qakw nitrogen [Mass/Vol]42 mg/dLHigh7-25The [facility] CampusroHealth SystemComment on above:Performed By: #### CH8 ####[facility] PATHOLOGY ALKRPLVWEJ1532[address] [place] [address], [address]DGODR GAS, ARTERIALon 94-45-1696DO ABE0.4 mmol/LNormal-2.0-3.0The [facility] CampusroHealth SystemComment on above: Performed By: #### CR BGA ####[facility] PATHOLOGY CBTINBIICI9[address] [place] [address], [address]YP ZQQ250.9 mm AjDhyr85.0-45.0The [facility] CampusroHealth SystemComment on above:Performed By: #### CR BGA ####[facility] PATHOLOGY NZNXUWMBCI6437[address] [place] [address], [address]VI PHA7.329Low 7.350-7.450The [facility] CampusroHealth SystemComment on above:Performed By: #### CR BGA ####[facility] PATHOLOGY VLHYBXROLG36[address] [place] [address], [address]LH PO298 mm GvVhhpdp61-187Vpk [facility] SystemComment on above:Performed By: #### CR BGA ####[facility] PATHOLOGY JXEFVUHPYX4584 [place], [address]ADV2 (CATEGORY)40%NormalThe [facility] CampusroHealth SystemComment on above: Performed By: #### CR BGA ####[facility] PATHOLOGY TUFOOYSRMZ6659 [place], [address]ISN4 (Bld) [Moles/Vol]26 mmol/LJndfhy93-80Wst [facility] CampusroHealth SystemComment on above:Performed By: #### CR BGA ####[facility] PATHOLOGY EFMBFXOBTL039[address] [place] [address], [address]OKWZOQQPTFfsqfiOej [facility] SystemComment on above:Performed By: #### CR BGA ####[facility] PATHOLOGY LAJXJLSDVV[address] [place] [address], [address]Kwazeo saturation in Blood97.7 %Ktchct77.0-99.0The [facility] CampusroHealth SystemComment on above:Performed By: #### CR BGA ####[facility] PATHOLOGY FXRBGVSADR5866[address] [place] [address], [address]NCALSVU, IONIZEDon 79-07-9794CZ ICA1.05 mmol/LLow1.15-1.33The [facility] SystemComment on above:Result Comment: This test was developed, and its performance characteristics determined by the Department of Pathology of [facility]. It has not been cleared or approved by the FDA. This test is used for clinical purposes only.Performed By: #### CR ICA ####[facility] PATHOLOGY DRLKWDUIGA[address] [place] [address], [address]CIFGBKWN BLOOD COUNTon 62-64-9499Suxpgrjbcvn distribution width (RBC) [Ratio]13.9 %Epqxtw11.5-14.5The [facility] SystemComment on above:Performed By: #### CBC ####[facility] PATHOLOGY OHXHZPFSGX[address] [place] [address], [address]Zklyrycizh (Bld) [Volume fraction]28.9 %Low41.0-53.0The [facility] CampusroHealth SystemComment on above: Performed By: #### CBC ####[facility] PATHOLOGY XWHKUFDLIQ8256 [place], [address]Wgrkrnuhlq (Bld) [Mass/Vol]9.4 g/dLLow13.9-16.3The [facility] CampusroHealth SystemComment on above:Performed By: #### CBC ####[facility] PATHOLOGY QGCNNTGUZI[address] [place] [address], [address]HRF (RBC) [Entitic mass]32.7 nwHolevo86.0-34.0The [facility] SystemComment on above:Performed By: #### CBC ####[facility] PATHOLOGY XQUQJLLDPR5586[address] [place] [address], [address]LJNO (RBC) [Mass/Vol]32.5 g/iSIkbduf69.0-35.9The [facility] Comment on above:Performed By: #### CBC ####[facility] PATHOLOGY AHLXAIAGZA[address] [place] [address], [address]XSQ (RBC) [Entitic vol]101 fLHigh 80-100The [facility] SystemComment on above:Performed By: #### CBC ####[facility] PATHOLOGY KMDDSFPBGA3974[address] [place] [address], [address]Svjkjlzk mean volume (Bld) [Entitic vol]6.9 fLLow7.5-11.2The [facility] SystemComment on above:Performed By: #### CBC ####[facility] PATHOLOGY ZLXOAHMKKQ1513[address] [place] [address], [address]Whitgnpku (Bld) [#/Vol]100 10*3/vHZsx852-615Afa [facility] SystemComment on above:Performed By: #### CBC ####[facility] PATHOLOGY XCKEAXIYTS[address] [place] [address], [address]HZS (Bld) [#/Vol]2.87 10*6/uLLow4.50-5.90The [facility] SystemComment on above:Performed By: #### CBC ####[facility] PATHOLOGY ECOXBMEJAA1058[address] [place] [address], [address]PIJ (Bld) [#/Vol]3.8 10*3/uLLow4.5-11.5The [facility] SystemComment on above: Performed By: #### CBC ####[facility] PATHOLOGY FVHPIXVYQZ[address] [place] [address], [address]Ogfihziqem 19-22-2745Nhudrijdaigzt Authentication Interface Message TextNoMet[facility] SystemTranscription Authentication Interface Message TextNoMet[facility] SystemGLUCOSE, FINGERSTICK-IN OFFICE on 55-11-7052Zpiphpq [Mass/Vol]102 mg/jPSltbvv79-378Bow [facility] Comment on above:Performed By: #### 62986 ####NURSING GLUCOSE JZSEKJO5[address] [place] [address], [address]Vvmssbm [Mass/Vol]72 mg/qATnt10-856Hsz [facility] SystemComment on above:Performed By: #### 64414 ####NURSING GLUCOSE VJAKZJO5725[address] [place] [address], [address]Hmqljxj [Mass/Vol]46 mg/dL Critically nws64-989Oer [facility] SystemComment on above:Result Comment: Will Repeat TestPerformed By: #### 82739 ####NURSING GLUCOSE AYLLFJI0117[address] [place] [address], [address]Rlolrvv [Mass/Vol]120 mg/qRFqtv78-806Fjj [facility] SystemComment on above:Performed By: #### [id number] ####NURSING GLUCOSE CDTJYMW7448 [place], [place], [address]MJAFZGVAM, WHOLE BLOODon 05-18-2024 Potassium [Moles/Vol]5.0 mmol/LNormal3.5-5.0The [facility] SystemComment on above:Performed By: #### CR K ####[facility] PATH[facility]Y THQYGLBBVN[address] [place] [address], [address]Psnswyani [Moles/Vol]5.7 mmol/LHigh3.5-5.0The [facility] SystemComment on above:Performed By: #### CR K ####[facility] PATH[facility]Y UYQJMLFWRR[address] [place] [address], [address]Plvfxwzj Noteson 60-68-0301Huaioazrijdlf Authentication Interface Message TextNo[facility] SystemTranscription Authentication Interface Message TextNormiCADe MetroAngiodroid SystemTranscription Authentication Interface Message TextNormiCADe YatownroAngiodroid SystemStudent Noteon 21-33-4652Loufhmrgfwxlt Authentication Interface Message TextNormiCADe MetroAngiodroid SystemXR CHEST AP OR PA 1 VIEWon 95-55-8382JD CHEST AP OR PA 1 VIEWNormalThe [facility] SystemXR Chest Single viewon 35-11-3203PRXRFLGJTHA: XR CHEST AP OR PA 1 VIEW [...] Chest Single viewOrdered By: Vu Sullivan on 84-74-7378DnihgUxmryd Work Phone: abo RH TYPEon 98-90-4350GAU and Rh group Nom (Bld) Blood group A Rh(D) positiveNormalThUniversity Hospitals Ahuja [facility] Center SystemComment on above: Performed By: #### ABORH ####[facility] PATHOLOGY QKHCKRASUK7062 [place], [address]VRM/Rh History Checkon 60-13-6151ZGS/Rh History CheckPatient discharged priorLima Memorial HospitalComment on above: Performed By: #### [id number] ###Valerie Dumont [facility] [address] [place] [address]Nbhqejxeyd Acute Painon 05-94-7369Azmlttrnoervg Authentication Interface Message TextNormSy[facility]ore Medical Center SystemTranscription Authentication Interface Message TextNoMet[facility] SystemAnesthesia Procedure Noteson 52-35-5333Xipymenkvhylu Authentication Interface Message TextInvalid Interpretation CodeThe [facility] SystemBASIC METABOLIC PANELon 03-90-0272Pipub gap [Moles/Vol]13 mmol/AMttxbr36-90Nsl [facility] SystemComment on above: Performed By: #### PHOS, CH8, HEPATIC, MG ####[facility] NDPNARDIRZ8014 [place], [address]Adnunns [Mass/Vol]9.7 mg/dLNormal 8.6-10.3The [facility] Hospital[facility] SystemComment on above:Performed By: #### PHOS, CH8, HEPATIC, MG ####[facility] OTDTZMHOON3794 [place], [address]Nxjyzrwn [Moles/Vol]91 mmol/EVth69-286Rhw [facility] SystemComment on above:Performed By: #### PHOS, CH8, HEPATIC, MG ####[facility] ODBHPQUENC2466 [place], [address]FV9 [Moles/Vol]28 mmol/BOunjox77-53Yqq [facility] CampusroHealth SystemComment on above:Performed By: #### PHOS, CH8, HEPATIC, MG ####[facility] ZGLNGWMVVQ6346 [place], [address]Wcdvffrdvp [Mass/Vol]1.22 mg/dLNormal0.70-1.30The [facility] SystemComment on above:Performed By: #### PHOS, CH8, HEPATIC, MG ####[facility] TNMTMMVPQA5274 [place], [address]MNETZMLML GFR (CKD-EPI)59 mL/min/1.73sqmLow>=60The [facility] SystemComment on above:Result Comment: 2020 CKD EPI [...] Inclusion of Race in Diagnosing Kidney Disease. English Journal of Kidney Diseases 202;79(2):268-88.e1.2. N Engl J Med 2020 Vol. 385 Issue 19 Pages 9150-7424Performed By: #### PHOS, CH8, HEPATIC, MG ####[facility] TVWRYGTZQB3208 [place], [address]Qzgzgqy [Mass/Vol]155 mg/aFYyot56-069Txl [facility] SystemComment on above:Performed By: #### PHOS, CH8, HEPATIC, MG ####[facility] PATH[facility] UAPACHYJYL0476 [place], [address]Aukvorvzc [Moles/Vol]5.3 mmol/LHigh3.5-5.0The [facility] Comment on above:Performed By: #### AMMON MIRELES, HEPATIC, MG ####S PATHOLOGY YKKVRPYGGH1924 [place], [address]Uccklp [Moles/Vol]127 mmol/CKer719-230Aow [facility] SystemComment on above:Performed By: #### AMMON MRIELES, HEPATIC, MG ####S PATHOLOGY PPWFGDBOLO9684 [place], [address]Xdri nitrogen [Mass/Vol]25 mg/dLNormal7-25The [facility] Comment on above:Performed By: #### AMMON MIRELES, HEPATIC, MG ####S PATHOLOGY XZTGSUSSUR9464 [place], [address]Ievqs gap [Moles/Vol]13 mmol/MInelfe45-34Bra [facility] SystemComment on above:Performed By: #### ETOH, hiv1 hiv2 agab scrn, CH8 ####S PATHOLOGY OUZPUILVCU5941 [place], [address]Hitjnex [Mass/Vol]9.6 mg/dLNormal8.6-10.3The [facility] CampusroS[facility] SystemComment on above:Performed By: #### ETOH, hiv1 hiv2 agab scrn, CH8 ####S PATHOLOGY PONRFSBFIY7136 [place], Chloride [Moles/Vol]91 mmol/VOrr26-700Tgb [facility] SystemComment on above: Performed By: #### ETOH, hiv1 hiv2 agab scrn, CH8 ####S PATHOLOGY SPFGVCNTSL8852 [place], [address]CQ4 [Moles/Vol]28 mmol/YBlimad96-41Smd [facility] SystemComment on above:Performed By: #### ETOH, hiv1 hiv2 agab scrn, CH8 ####S PATHOLOGY NVXGHOZADC0896 [place], [address]Jjoqgehioa [Mass/Vol]0.87 mg/dLNormal0.70-1.30The [facility] SystemComment on above:Performed By: #### ETOH, hiv1 hiv2 agab scrn, CH8 ####S PATHOLOGY VPXIUNKCJA5127 [place], ESTIMATED GFR (CKD-EPI)86 mL/min/1.73sqmNormal>=60The [facility] SystemComment on above:Result Comment: 2020 CKD EPI [...] Inclusion of Race in Diagnosing Kidney Disease. English Journal of Kidney Diseases 2021;79(2):268-88.e1.2. N Engl J Med 1 Vol. 385 Issue 19 Pages 1735-1742Performed By: #### ETOH, hiv1 hiv2 agab scrn, CH8 ####S PATHOLOGY JJFZTLLWTX1513 [place], Glucose [Mass/Vol]150 mg/bEEisr77-991Bhc [facility] SystemComment on above: Performed By: #### ETOH, hiv1 hiv2 agab scrn, CH8 ####S PATHOLOGY RDJQWQPMYP8001 [place], [address]Vzebygfeg [Moles/Vol] 5.2 mmol/LHigh3.5-5.0The [facility] SystemComment on above:Result Comment: Hemolysis presentPerformed By: #### ETOH, hiv1 hiv2 agab scrn, CH8 ####S PATHOLOGY FEJQDTMFSH8005 [place], [address]Ychszd [Moles/Vol]127 mmol/BBhy209-277Rrk [facility] SystemComment on above:Performed By: #### ETOH, hiv1 hiv2 agab scrn, CH8 ####S PATHOLOGY CLKPJEXTRF8731 [place], [address]Efvf nitrogen [Mass/Vol]22 mg/dLNormal 7-25The [facility] SystemComment on above:Performed By: #### ETOH, hiv1 hiv2 agab scrn, CH8 ####[facility] PATHOLOGY XICJIDNNWE[address] [place] [address], [address]JVHHP GAS, ARTERIALon 41-99-3616XI JOSEPH-0.7 mmol/LNormal-2.0-3.0The [facility] SystemComment on above:Performed By: #### CR BGA ####[facility] PATHOLOGY AOCFCVCIPK[address] [place] [address], [address]UA RHC769.3 mm HgHigh 35.0-45.0The [facility] SystemComment on above:Performed By: #### CR BGA ####[facility] PATHOLOGY XNOJAVNORI[address] [place] [address], [address]DI PHA7.514Dqy2.350-7.450The [facility] SystemComment on above:Performed By: #### CR BGA ####[facility] PATHOLOGY YXZIYGJHHR[address] [place] [address], [address]BI PO285 mm KeRyekdu66-914Qhp [facility] SystemComment on above: Performed By: #### CR BGA ####[facility] PATHOLOGY GFHYGFLABZ[address] [place] [address], [address]TVE9 (CATEGORY)40%NormalThe [facility] Comment on above:Performed By: #### CR BGA ####[facility] PATHOLOGY JZEJAFJWTE06[address] [place] [address], [address]EPR6 (Bld) [Moles/Vol]25 mmol/LNormal 21-28The [facility] SystemComment on above:Performed By: #### CR BGA ####[facility] PATHOLOGY FYHLARQLVH6[address] [place] [address], [address]QVZJABNZN NormalThe [facility] SystemComment on above:Performed By: #### CR BGA ####[facility] PATHOLOGY TVBXMSSIVC[address] [place] [address], [address]Kfgaay saturation in Blood95.9 %Nxtzej05.0-99.0The [facility] SystemComment on above: Performed By: #### CR BGA ####[facility] PATHOLOGY HVNNAANJNK6893 [place], [address]KQ JOSEPH-2.4 mmol/LLow-2.0-3.0The [facility] Comment on above:Performed By: #### CR BGA ####[facility] PATHOLOGY BDUSHMBJRF[address] [place] [address], [address]IX AYJ215.3 mm AtIqdc78.0-45.0The [facility] SystemComment on above:Performed By: #### CR BGA ####[facility] PATHOLOGY QGHVXIGEQF[address] [place] [address], [address]BN PHA7.244Low 7.350-7.450The [facility] SystemComment on above:Performed By: #### CR BGA ####[facility] PATHOLOGY ARHIHAUVQE[address] [place] [address], [address]HX PO282 mm DeDnomwg97-742Ymw [facility] SystemComment on above:Performed By: #### CR BGA ####[facility] PATHOLOGY QCGMOXILJF[address] [place] [address], [address]OQN2 (CATEGORY)40%NormalThe [facility] SystemComment on above: Performed By: #### CR BGA ####[facility] PATHOLOGY CAZZBOWZRE[address] [place] [address], [address]QKE3 (Bld) [Moles/Vol]25 mmol/YJwigjq68-06Oar [facility] SystemComment on above:Performed By: #### CR BGA ####[facility] PATHOLOGY UJSWIMBGKM[address] [place] [address], [address]KXGXCVMWKFkuulsRmv [facility] SystemComment on above:Performed By: #### CR BGA ####[facility] PATHOLOGY NVMITFJQUK[address] [place] [address], [address]Gwiwiq saturation in Blood94.8 %Low95.0-99.0The [facility] Campus[facility] SystemComment on above:Performed By: #### CR BGA ####[facility] PATHOLOGY ECFKOERQXD[address] [place] [address], [address]IL ABE0.1 mmol/LNormal-2.0-3.0The [facility] SystemComment on above: Performed By: #### CR BGA ####[facility] PATHOLOGY UASCGQRTIL9156 [place], [address]RC FJL818.5 mm DnJyzr89.0-45.0The [facility] SystemComment on above:Performed By: #### CR BGA ####[facility] PATHOLOGY IMROAJPRML7540 [place], [address]TD PHA7.248Low 7.350-7.450The [facility] SystemComment on above:Performed By: #### CR BGA ####[facility] PATHOLOGY EQMPRWHRMS5530 [place], [address]SD JY5032 mm DsKfef09-427Ifi [facility] SystemComment on above:Performed By: #### CR BGA ####[facility] PATHOLOGY GUPEDXYQLB8[address] [place] [address], [address]AVD4 (CATEGORY)>5 LPMNormalThe [facility] SystemComment on above: Performed By: #### CR BGA ####[facility] PATHOLOGY ZZQMVALKMG8[address] [place] [address], [address]YVL5 (Bld) [Moles/Vol]28 mmol/IFphscv74-55Dda [facility] SystemComment on above:Performed By: #### CR BGA ####[facility] PATHOLOGY FNMJRYQJBP[address] [place] [address], [address]COTKCptxd CanulaNormal The [facility] SystemComment on above:Result Comment: 6LPerformed By: #### CR BGA ####[facility] PATHOLOGY KFIRFEEOQE[address] [place] [address], Oxygen saturation in Blood97.5 %Bvwffr64.0-99.0The [facility] SystemComment on above:Performed By: #### CR BGA ####[facility] PATHOLOGY NOLFPEBKCS[address] [place] [address], [address]XMTMPHX, IONIZEDon 51-85-3335HP ICA1.11 mmol/LLow 1.15-1.33The [facility] SystemComment on above:Result Comment: This test was developed, and its performance characteristics determined by the Department of Pathology of [facility]. It has not been cleared or approved by the FDA. This test is used for clinical purposes only.Performed By: #### CR ICA, LACT ####[facility] PATHOLOGY PPBAFWHUVA[address]78[address] [place] [address], CR ICA1.15 mmol/LNormal1.15-1.33The [facility] SystemComment on above:Result Comment: This test was developed, and its performance characteristics determined by the Department of Pathology of [facility]. It has not been cleared or approved by the FDA. This test is used for clinical purposes only. Performed By: #### CR ICA ####[facility] PATHOLOGY IGCEVKZMLO[address] [place] [address], [address]UJSMFFMA BLOOD COUNTon 43-12-7486Sjroggoqfzi distribution width (RBC) [Ratio]13.7 %Hwyhpf48.5-14.5The [facility] Comment on above:Performed By: #### CBC ####[facility] PATHOLOGY BQLYTXXYBL[address] [place] [address], [address]Wrscwvajon (Bld) [Volume fraction]33.6 %Low41.0-53.0The [facility] SystemComment on above:Performed By: #### CBC ####[facility] PATHOLOGY XUQATEHWVK8[address] [place] [address], Hemoglobin (Bld) [Mass/Vol]11.2 g/dLLow13.9-16.3The [facility] SystemComment on above:Performed By: #### CBC ####[facility] PATHOLOGY XLULGBIQYM8974[address] [place] [address], [address]LRX (RBC) [Entitic mass]33.3 kmOggntc89.0-34.0The [facility] SystemComment on above:Performed By: #### CBC ####[facility] PATHOLOGY OHJMLTCFLG13[address] [place] [address], [address]GRPU (RBC) [Mass/Vol] 33.3 g/bTKjkjpu29.0-35.9The [facility] SystemComment on above:Performed By: #### CBC ####[facility] PATHOLOGY MVYXUMWFCP2188[address] [place] [address], [address]DIM (RBC) [Entitic vol]100 nAVvmcce68-201Mwz [facility] SystemComment on above:Performed By: #### CBC ####[facility] PATHOLOGY WHPEISXNKZ4119[address] [place] [address], [address]Lcfyrjnu mean volume (Bld) [Entitic vol]6.7 fLLow 7.5-11.2The [facility] SystemComment on above:Performed By: #### CBC ####[facility] PATHOLOGY HEVHSMOZSK[address] [place] [address], [address]Gnfznaela (Bld) [#/Vol]204 10*3/vTCdxthk784-152Vql [facility] SystemComment on above: Performed By: #### CBC ####[facility] PATHOLOGY LEAUJMLHDS9[address] [place] [address], [address]NHY (Bld) [#/Vol]3.37 10*6/uLLow4.50-5.90The [facility] SystemComment on above:Performed By: #### CBC ####[facility] PATHOLOGY UJHCAHQUTH3185[address] [place] [address], [address]SJO (Bld) [#/Vol]9.5 10*3/uLNormal4.5-11.5The [facility] SystemComment on above:Performed By: #### CBC ####[facility] PATHOLOGY BBFGBXSGGK[address] [place] [address], Erythrocyte distribution width (RBC) [Ratio]13.5 %Eckcdp22.5-14.5The [facility] Campus[facility] SystemComment on above:Performed By: #### CBC ####[facility] PATHOLOGY HGAVXKIKCU3165[address] [place] [address], [address]Bwpfybhhgh (Bld) [Volume fraction]41.9 %Jmdpsz71.0-53.0The [facility] SystemComment on above:Performed By: #### CBC ####[facility] PATHOLOGY VUQOVJGMUC33[address] [place] [address], Hemoglobin (Bld) [Mass/Vol]14.1 g/zRNzwgxa04.9-16.3The [facility] Campus[facility] SystemComment on above:Performed By: #### CBC ####[facility] PATHOLOGY ACQLSKNRSG1142 [place], [address]WPF (RBC) [Entitic mass]33.2 neFscsch65.0-34.0The [facility] SystemComment on above:Performed By: #### CBC ####[facility] PATHOLOGY JNMKFKJUCF[address] [place] [address], [address]VBME (RBC) [Mass/Vol] 33.6 g/hEHbxedc62.0-35.9The [facility] SystemComment on above:Performed By: #### CBC ####[facility] PATHOLOGY TFUDFOLXVS8274[address] [place] [address], [address]HSS (RBC) [Entitic vol]99 sARfxkwd64-233Ypn [facility] Campus[facility] SystemComment on above:Performed By: #### CBC ####[facility] PATHOLOGY VJOFRAQIWP5379[address] [place] [address], [address]Vmapfybb mean volume (Bld) [Entitic vol]6.7 fLLow 7.5-11.2The [facility] Campus[facility] SystemComment on above:Performed By: #### CBC ####[facility] PATHOLOGY ZXLVVSMGEH[address] [place] [address], [address]Xqivdpozb (Bld) [#/Vol]250 10*3/jGZlktmj891-814Duw [facility] CampusroHealth SystemComment on above: Performed By: #### CBC ####[facility] PATHOLOGY KVEXLTGASL8[address] [place] [address], [address]HHE (Bld) [#/Vol]4.24 10*6/uLLow4.50-5.90The [facility] Campusro[facility] SystemComment on above:Performed By: #### CBC ####[facility] PATHOLOGY CQOOXMAKTA8030[address] [place] [address], [address]ABA (Bld) [#/Vol]13.4 10*3/uLHigh4.5-11.5The [facility] Campusro[facility] SystemComment on above:Performed By: #### CBC ####[facility] PATHOLOGY VCJFEGQWIQ9[address] [place] [address], [address]JL Abdomen/Pelvis w/ Contraston 66-05-7421HK Abdomen/Pelvis w/ ContrastExam Date/Time: 05/16/2024 22:39 EDT [...] in ml's: 130 Rectal Contrast Given? NoNormalFisher [facility] CenterCT Chest w/ Contraston 82-62-6616OJ Chest w/ ContrastExam Date/Time: 05/16/2024 22:39 EDT [...] Isovue 300 Contrast amount in ml's: 130NormalFisher [facility] CenterCT Head or Brain w/o Contraston 51-57-7337OF Head or Brain w/o ContrastExam Date/Time: 05/16/2024 [...] Toñito Myrick MD Transcribed by: [place] Technologist: [facility]CT PELVIS BONY W/O CONTRASTon 26-38-5194MF PELVIS BONY W/O CONTRASTNormOhioHealth Southeastern Medical CenterCT Spine Cervical w/o Contraston 53-69-0863WB Spine Cervical w/o Contrast Exam Date/Time: 05/16/2024 [...] moderate degenerative changes are present, with multilevel tupt-up-cofgzarw neural foraminal narrowing and approximately 3 to [...] Toñito Myrick MD Transcribed by: [place] Technologist: [facility] CampusCTA HEAD/NECK W/on 16-55-6025FDU HEAD/NECK W/NormalThe [facility] SystemCare Plan Noteon 32-83-4512Tpupccpiolbqv Authentication Interface Message TextNormPlayPhoneroAngiodroid SystemConsultson 89-94-7636Hiykxxujvqcrg Authentication Interface Message TextNormPlayPhoneroAngiodroid SystemTranscription Authentication Interface Message TextNormPlayPhoneroAngiodroid SystemTranscription Authentication Interface Message TextNoiKoaroAngiodroid SystemED Clinical Summaryon 06-91-1343PC Clinical SummaryED Clinical Summary [address] [address] ED Clinical Summary Person Information Name: ANDREA MICHELLE[place] Age: 83 Years : 1940 Sex: Male Language: Mohawk PCP: DONY MOORE DO Marital Status: Visit [...] 05/17/2024 00:14:42 05/17/2024 00:14:42 05/17/2024 00:14:42 ADDRESS: [address] [place] [phone] PHYS DOC NOTES: MEDICAL INFORMATION: Prescriptions Given: PATIENT EDUCATION INFORMATION: Instructions: Follow up: DIAGNOSIS: Closed head injury; Hyponatremia; Pneumothorax; Rib fracturesHarrison Community Hospital CenterED Noteson 25-42-5337Oqbyjydhijurs Authentication Interface Message TextPT BIB MLF; tx from [facility] with right sided hemopneumo; pt has pig tail catheter in place on right side; pt fell down 6-8 stairs and hit head +LOCNormal The [facility] SystemED Patient Education Noteon 46-27-9084CF Patient Education NoteED Patient Education NoteNoSt. Joseph Medical Center Medical CenterED Patient Summaryon 28-78-9605VB Patient SummaryED Patient Summary [address] [address] Patient Discharge Instructions Person Information Name: ANDREA MICHELLE Age: 83 Years Arrival Date: 05/16/2024 21:51:40 Discharge Diagnosis: Closed head injury; Hyponatremia; Pneumothorax; Rib fractures Primary Care Physician: DONY MOORE DO Provider Information Primary Provider: Ludmila Leach DO Advanced Second Worker:None The exam and treatment you received in the Emergency Department were for an urgent problem and are not intended as complete care. It is important that you follow up with a doctor, nurse practitioner,or physician?s assistant professor sculpture for ongoing care. If your symptoms become [...] opioids can be used to help relieve sewuucnv-gb-trofuz pain and are often prescribed following a [...] your community drug take- back program or [employer] mail-back program, or flush them down the toilet, following guidance from the Food and Drug Administration (www.fda.gov/Drugs/ResourcesForYou). ? Visit www.cdc.gov/drugoverdose to learn about the risks of opioids abuse and overdose. ? If you believe you may be struggling with addiction, tell your health insurance healthcare consultant and ask for guidance or call [facility]?S National Helpline at 6-436-302-KCDJ. v Source: US Department of Health and Human Services/Center for Disease Control & Prevention [facility] (more content not included)...[facility] Provider Notes on 66-50-9121Syucrsiiemhzi Authentication Interface Message TextNormalThSuburban Community Hospital & Brentwood HospitalEMS Documentationon 44-22-7863DEW DocumentationReport Please click on link to see reportNoFlower HospitalComment on above:Result Comment: Missing Attachment - attachment exceeds size limitation Event_[email or web address].pdf Can be viewed in source systemETHANOL, SERUMon 27-04-6920Tfmrxxk [Mass/Vol]mg/dLNormalNone DetectedThe [facility] HospitalAngiodroid System Comment on above:Performed By: #### ETOH, hiv1 hiv2 agab scrn, CH8 ####[facility] PATHOLOGY MXKYIPPYWG3079 [place], [address]RDVOYRF, FINGERSTICK-IN OFFICEon 73-59-9390Tgrjnyt [Mass/Vol]95 mg/nCFwcucl71-159Zns [facility] SystemComment on above:Performed By: #### [id number] ####NURSING GLUCOSE AOSTCBI2585 [place], [place], [address]Wszjtyy [Mass/Vol]162 mg/dLHigh 80-116The [facility] SystemComment on above:Performed By: #### 637[address] ####NURSING GLUCOSE VQQJLTY3189 [place], [place], [address]K AND Ricardo 38-31-3558Ogeapwmshedzb Authentication Interface Message TextNormalThe [facility] SystemHEPATIC FUNCTION PANELon 69-09-3543Vsikici [Mass/Vol]4.5 g/dL Normal3.5-5.7The [facility] SystemComment on above:Performed By: #### AMMON MIRELES, HEPATIC, MG ####[facility] PATHOLOGY EYZJEDBUGS3798 [place], [address]QMM22 IU/EQtetgy39-170Qoz [facility] SystemComment on above: Performed By: #### AMMON MIRELES, HEPATIC, MG ####[facility] PATHOLOGY YBMPGRWAWU5739 [place], [address]WHV [Catalytic activity/Vol]26 U/L Normal7-52The [facility] SystemComment on above:Performed By: #### AMMON MIRELES, HEPATIC, MG ####[facility] PATHOLOGY GZJMBWXXVI2667 [place], [address]AHF [Catalytic activity/Vol]34 U/FIzgqhl42-09Jeo [facility] Comment on above:Performed By: #### AMMON MIRELES, HEPATIC, MG ####[facility] PATHOLOGY PVQUZPMCOW3338 [place], [address]Gzddgqply [Mass/Vol]0.4 mg/dLNormal0.3-1.0The [facility] SystemComment on above:Performed By: #### AMMON MIRELES, HEPATIC, MG ####[facility] PATHOLOGY YJGKHEGYJJ8964 [place], [address]Slarnqyer.direct [Mass/Vol]0.08 mg/dLNormal 0.03-0.18The [facility] SystemComment on above:Performed By: #### PHOS, CH8, HEPATIC, MG ####[facility] PATHOLOGY YHAIJQZIDN4371 [place], [address]Ldywomm [Mass/Vol]7.0 g/dLNormal6.0-8.3The [facility] SystemComment on above:Performed By: #### PHOS, CH8, HEPATIC, MG ####[facility] PATHOLOGY CHDVYDBCSL1552 [place], [address]IDZE SENSITIVITY TROPONIN Ion 66-81-5972YB TROPONIN I14 ng/LNormal<=15The [facility] Comment on above:Order Comment: Elevated troponin [...] context using provider judgement.Performed By: #### HSTRP ####S PATHOLOGY VDZEKBINNG6275 [place], [address]VNM8 HIV2 AGAB SCRNon 81-89-9415MWN AG-AB OLELIWEyx-WtybmcoyLgcydhFpt-PryqpoikEbf [facility] Comment on above:Order Comment: HIV Information: ???[place] Rev. code 3701.243(E):This information has been disclosed [...] #### ETOH, hiv1 hiv2 agab scrn, CH8 ####[facility] PATHOLOGY SNNQJSJWOV2179 [place], [address]RWUYOK ACIDon 88-72-3916VA LACT1.2 mmol/LNormal0.5-1.6The [facility] SystemComment on above:Performed By: #### CR ICA, LACT ####[facility] PATHOLOGY SIGTWHOYLB1870 [place], [address]ZX LACT0.9 mmol/LNormal 0.5-1.6The [facility] SystemComment on above:Performed By: #### LACT ####[facility] PATHOLOGY GNBRYXDNEV9994 [place], [address]WEJEHRGNBkh 54-22-4590Pphbmikcv [Mass/Vol]1.9 mg/dLNormal1.9-2.7The [facility] Comment on above:Performed By: #### PHOS, CH8, HEPATIC, MG ####[facility] PATHOLOGY VTTLJLYKSF0341 [place], [address]Cx Panel Informationon 63-94-0321Jfmvjju, Saheb, MD 05/17/2024 2:16 PM Peripheral Block [...] Slow fractionated injection: yes No block complications [facility] CampusroShelby Memorial HospitalMetroHealthPARTIAL THROMBOPLASTIN TIMEon 85-83-8775hAIM Coag (Bld) [Time]27 eOkvwao83-97Bhy [facility] SystemComment on above:Performed By: #### APTT, PT ####[facility] PATH[facility]Y PGVDWFZZTE9402 [place], [address]RLJPONWNBAnu 05-62-6819Osnqdlkyx [Mass/Vol]5.4 mg/dLHigh2.5-5.0The [facility] SystemComment on above:Performed By: #### PHOS, CH8, HEPATIC, MG ####[facility] PATHOLOGY BAFWVWGKAC8708 [place], [place], PROTHROMBIN TIME AND INRon 24-43-2035QYA Coag (PPP) [Relative time]0.86 {INR}Low 0.90-1.10The [facility] SystemComment on above:Performed By: #### APTT, PT ####[facility] PATHOLOGY [id number] [place] [address], [phone] Coag (PPP) [Time]9.6 sLow9.7-12.9The [facility] SystemComment on above: Performed By: #### APTT, PT ####[facility] PATHOLOGY [id number] [place] [address], [phone] Noteson 49-45-3537Urbablwxxnamw Authentication Interface Message TextNormSycamore Medical Center SystemTranscription Authentication Interface Message TextNormSycamore Medical Center SystemTranscription Authentication Interface Message TextNormSycamore Medical Center SystemTranscription Authentication Interface Message TextNormSycamore Medical Center SystemTranscription Authentication Interface Message TextNormSycamore Medical Center SystemTranscription Authentication Interface Message TextNoMet[facility] SystemStudent Noteon 80-43-6248Ibmwvbfjkjmje Authentication Interface Message TextNoMet[facility]Health [facility] SystemTYPE AND SCREENon 09-42-1181EEL and Rh group Nom (Bld)Blood group A Rh(D) positiveNoMetroHealth Parma Medical Center SystemComment on above:Performed By: #### TS ####[facility] PATHOLOGY [id number] [place] [address], [phone] and Rh group Nom (Bld)No Previous ResultsNoMetroHealth Parma Medical Center SystemComment on above:Performed By: #### TS ####[facility] PATHOLOGY [id number] [place] [address], [phone] INTNegativeNoMetroHealth Parma Medical Center SystemComment on above:Performed By: #### TS ####[facility] PATHOLOGY [id number] [place] [address], [phone] GUIDANCE NEEDLE PLACEMENTon 89-50-4199PL GUIDANCE NEEDLE PLACEMENTNoOhio State Health SystemUS Guidance for placement of needle in Unspecified body regionon 94-16-9336NzwdmLxoafw: Technical services were performed by the department of Anesthesia. Please see the Procedure note for interpretation. Please refer to the patient's chart for the results of the procedure and ultrasound. MetroHealthNarrative & Impression EXAMINATION: US GUIDANCE NEEDLE PLACEMENT CLINICAL HISTORY: peripheral nerve block [facility]HealthRadiology Study observation (narrative)MetroHealthUS Guidance for placement of needle in Unspecified body regionOrdered By: Shaan Cobian on 47-20-9947WvqjbLdhmdt Work Phone: XR CHEST AP OR PA 1 VIEWon 01-47-2788UK CHEST AP OR PA 1 VIEWNormalThe [facility] SystemXR CHEST AP OR PA 1 VIEWNormalThe [facility] SystemXR CHEST AP OR PA 1 VIEWNormalThe [facility] SystemXR Chest Single View on [id number] Chest Single ViewExam Date/Time: 05/16/2024 23:12 EDT Reason for Exam: post chest tube;Other (please specify) Report IMPRESSION: Interval placement of right-sided chest tube with improvement of the right pneumothorax. EXAMINATION: XR Chest Single View Clinical History: post chest tube Comparison: Earlier studies on 05/16/2024. RESULT: Limitations from single view and with portions of the lung apices excluded from the owjic-cg-yddl. Interval placement of right-sided chest tube, projecting [...] Ka,r in mGy = 0 DAP = 0[facility] Chest Single ViewExam Date/Time: 05/16/2024 22:03 [...] narrowing of the right acromiohumeral interval, with wkez-ps-siwk contact of the humeral head and acromion, consistent with chronic rotator cuff tearing with rotator cuff arthropathy. Ordering Provider: Kenney Arias FINAL REPORT Dictated: 05/17/2024 10:38 am Rahul Santana MD. Signed (Electronic Signature): 05/17/2024 10:38 am Signed by: Rahul Santana MD Transcribed by: [place] Technologist: CHRISTIN Technical Comments Radiation Dose: Ka,r in mGy = . DAP = .[facility] Chest Single viewon 05-17-2024 EXAMINATION: XR [...] Chest Single viewOrdered By: Clare Choe on 00-74-0556HqkbrOludih Work Phone: XR FEMUR RIGHT MINIMUM 2 VIEWSon 04-38-5382XN FEMUR RIGHT MINIMUM 2 VIEWSNormalThe [facility] SystemXR HIP RIGHT W/ PELVIS MIN 2-3 VIEWSon 36-88-1036XC HIP RIGHT W/ PELVIS MIN 2-3 VIEWSNormalThe [facility] SystemXR INLET-OUTLET + JUDETS 4 OR MORE VIEWSon 53-71-4329TL INLET-OUTLET + JUDETS 4 OR MORE VIEWSNormalThe [facility] CampusroHealth SystemABSCon 72-14-8935MFUX Gel InterpNegativeNormalOhiohealth Doctors HospitalComment on above:Performed By: #### [id number] #### [place] [facility] [address] [place], [place] [address]PLHIG BANKOrdered By: Iqra Ramos on 02-51-1575YVI/Rh InterpPositiveInvalid Interpretation CodePH[facility] BB SubsectionABSC Gel Interp Negative (05/16/24 9:58 PM)NormalPH[facility]ICIANS [facility] BB SubsectionBMPon 83-95-8878Kqkvr gap [Moles/Vol]15 mmol/LNormal6-16Ohiohealth Doctors HospitalComment on above:Performed By: #### [id number] #### Tim [facility] [address] [place], [place] [address]Uhvitxr [Mass/Vol]9.5 mg/dLNormal8.9-11.1[facility] Medical CenterComment on above:Performed By: #### [id number] #### Tim [facility] [address] [place], [place] [address]Lqemvxin [Moles/Vol]92 mmol/PHbe345-741MbgkiwOhiohealth Doctors HospitalComment on above:Performed By: #### [id number] #### [facility] [address] [place], [place] [address]BB4 [Moles/Vol]23 mmol/KZajbie47-28DhnvanOhiohealth Doctors Hospital Comment on above:Performed By: #### [id number] #### [facility] [address] [place], [place] [address]Neuswiufba [Mass/Vol]0.8 mg/dLNormal0.5-1.3FAvita Health SystemComment on above:Performed By: #### [id number] #### [facility] [address] [place], [place] [address]Kmgqobe [Mass/Vol]143 mg/hJTlpyyn92-654AyuufiOhiohealth Doctors HospitalComment on above:Performed By: #### [id number] #### [facility] [address] [place], [place] [address]Zmekfcfnk [Moles/Vol]3.8 mmol/LNormal3.5-5.3FAvita Health SystemComment on above:Performed By: #### [id number] #### [facility] [address] [place], [place] [address]Rmzxby [Moles/Vol]126 mmol/ODds616-741NehserOhiohealth Doctors HospitalComment on above:Performed By: #### [id number] #### [facility] [address] [place], [place] [address]Oymr nitrogen [Mass/Vol]20 mg/dLNormal5-21Ohiohealth Doctors HospitalComment on above:Performed By: #### [id number] #### [facility] [address] [place], [place] [address]Fidl nitrogen/Creatinine [Mass ratio]25 No MhtuiWafz14-31DgasdcOhiohealth Doctors HospitalComment on above:Performed By: #### [id number] #### [facility] [address] [place], [place] [address]VVV w/ Auto Diffon 68-48-1850Dpgocyhcv/100 WBC (Bld)0.4 %Normal 0.0-2.0Ohiohealth Doctors HospitalComment on above:Performed By: #### [id number] #### [facility] [address] [place] [address]Ajsqarrjk/Leukocytes Auto (Bld) [Pure # fraction]0.1 E9/LNormal 0.0-0.2FAvita Health SystemComment on above:Performed By: #### [id number] #### [facility] [address] [place] [address]Ctyxndrxytc (Bld) [#/Vol]0.5 E9/LNormal0.0-0.5FAvita Health SystemComment on above:Performed By: #### [id number] #### [facility] [address] [place] [address]Mdzilaoganw/100 WBC (Bld)3.0 %Normal0.0-8.0Ohiohealth Doctors HospitalComment on above:Performed By: #### [id number] #### [facility] [address] [place] [address]Klexllusfwc distribution width (RBC) [Ratio]13.1 %Normal 10.9-14.2FAvita Health SystemComment on above:Performed By: #### [id number] #### [facility] [address] [place] [address]Pkzbdkfdjt (Bld) [Volume fraction]41.1 %Spreet21.7-49.0Ohiohealth Doctors HospitalComment on above:Performed By: #### [id number] #### [facility] [address] [place] [address]Trgztosgjh (Bld) [Mass/Vol]14.0 g/aFSrmpef80.5-17.5FAvita Health SystemComment on above:Performed By: #### [id number] #### [facility] [address] [place] [address]Hhpwnmaglcz (Bld) [#/Vol]1.5 E9/LNormal1.0-4.0Ohiohealth Doctors HospitalComment on above:Performed By: #### [id number] #### [place] [facility] [address] [place] [address]Rvfjnvpeife/100 WBC (Bld)8.6 %Low14.0-50.0Ohiohealth Doctors HospitalComment on above:Performed By: #### [id number] #### [place] [facility] [address] [place] [address]VNF (RBC) [Entitic mass]33.7 iwQokopu36.0-34.0Ohio[facility] Doctors HospitalComment on above:Performed By: #### [id number] #### [facility] [address] [place] [address]CGIQ (RBC) [Mass/Vol]34.2 g/dHKoxhvs00.4-36.0Ohiohealth Doctors HospitalComment on above:Performed By: #### [id number] #### [facility] [address] [place] [address]MON (RBC) [Entitic vol]98.5 oGNvidap83.0-100.0Ohio[facility] Doctors HospitalComment on above:Performed By: #### [id number] #### [facility] [address] [place] [address]Rwxjyamzj (Bld) [#/Vol]0.7 E9/LNormal0.2-1.0Ohiohealth Doctors HospitalComment on above:Performed By: #### [id number] #### [facility] [address] [place] [address]Rlvihffdttq (Bld) [#/Vol]14.5 E9/LHigh2.0-7.5FAvita Health SystemComment on above:Performed By: #### [id number] #### [facility] [address] [place] [address]Ndhqmuxkjku/100 WBC (Bld)83.7 %High36.0-75.0Ohiohealth Doctors HospitalComment on above:Performed By: #### [id number] #### [facility] [address] [place] [address]Khwqlevv888.0 E9/RFgxlsj767.0-500.0[facility] Comment on above:Performed By: #### [id number] #### [facility] [address] [place], [place] [address]Pvrziesg mean volume (Bld) [Entitic vol]6.3 fLLow6.4-10.8Ohiohealth Doctors HospitalComment on above:Performed By: #### [id number] #### [facility] [address] [place], [place] [address]ZQP (Bld) [#/Vol]4.2 E12/LLow4.3-5.9[facility] Comment on above:Performed By: #### [id number] #### [facility] [address] [place], [place] [address]BKI corrected for nucl RBC Auto (Bld) [#/Vol]17.3 E9/LHigh 4.0-11.0Ohiohealth Doctors HospitalComment on above:Result Comment: Peripheral smear review performed.Performed By: #### [id number] #### [facility] [address] [place], [place] [address]JKCTQDSYJLxuyfii By: SYSTEM SYSTEM on 15-71-8878Zvanwws [Mass/Vol]4.4 g/dLNormal3.3 - 5.0 gm/dLRemisol ChemAlbumin/Globulin [Mass ratio] 1.7 {ratio}Normal1.1 - 2.2Remisol ChemALP [Catalytic activity/Vol]62 [iU]/d Aqthxj58 - 98 Int._Unit/LRemisol ChemALT No additional P-5'-P [Catalytic activity/Vol]23 [iU]/dNormal6 - 46 Int._Unit/LRemisol ChemAnion gap [Moles/Vol] 15 mmol/LNormal6 - 16 mEq/LRemisol ChemAST [Catalytic activity/Vol]34 [iU]/d Normal5 - 43 Int._Unit/LRemisol ChemBilirubin [Mass/Vol]0.3 mg/dLNormal0.0 - 1.1 mg/dLRemisol ChemBilirubin.direct [Mass/Vol]0.1 mg/dLNormal0.0 - 0.4 mg/dL Remisol ChemBilirubin.indirect [Mass or moles/Vol]0.2 mg/dLNormal0.1 - 0.9 mg/dL Remisol ChemCalcium [Mass/Vol]9.5 mg/dLNormal8.9 - 11.1 mg/dLRemisol Chem Chloride [Moles/Vol]92 mmol/RPrr674 - 111 mmol/LRemisol ChemCO2 [Moles/Vol]23 mmol/AEeisqs66 - 31 mmol/LRemisol ChemCreatinine [Mass/Vol]0.8 mg/dLNormal0.5 - 1.3 mg/dLRemisol MewcxRUS05 mL/min/1.73 q8Xnyztd>=59mL/min/1.73 j5Rityibm Chem Ethanol Lvl18 mg/dLHigh<=11mg/dLRemisol ChemGlobulin (S) [Mass/Vol]2.6 g/dL Normal1.4 - 4.0 gm/dLRemisol ChemGlucose [Mass/Vol]143 mg/mVCnzolc84 - 199 mg/dL Remisol ChemLactic Acid Lvl2.5 mmol/LHigh0.5 - 2.2 mmol/LRemisol ChemLipase [Catalytic activity/Vol]40 U/HTzkjtq17 - 58 unit/LRemisol ChemPotassium [Moles/Vol]3.8 mmol/LNormal3.5 - 5.3 mmol/LRemisol ChemProtein [Mass/Vol]7.0 g/dLNormal6.0 - 7.8 gm/dLRemisol ChemSodium [Moles/Vol]126 mmol/WYxy769 - 145 mmol/LRemisol ChemTroponin HS5.40 pg/mLLow15.90 - [...] - 21 mg/dLRemisol ChemUrea nitrogen/Creatinine [Mass ratio]25 mg/hsOlgy71 - 20Remisol ChemCOAGULATION Ordered By: Iqar Ramos on 42-03-4866wLJD Coag (PPP) [Time]29.9 dLucjim94.1 - 36.5 second(s)[facility] Auto CoagComment on above:Interpretive Data: Parameter 15 [...] the same coagulation reagent and instrumentation as [facility]. Currently there are no coagulation studies available worldwide for children to 14 days, andno normal ranges. Heparin therapeutic range (represented by Anti-Factor Xa activity of 0.2 - 0.4 U/mL) corresponds to PTT of 56.6 - 109.0 sec.INR Coag (PPP) [Relative time]0.83 {INR}Invalid Interpretation CodePH[facility]ICI[facility] Auto CoagComment on above:Interpretive Data: INR results are specifically intended to assess patients stabilized on long-term Anticoagulation therapy suggested INR s Less Intensive Anticoagulation 2.0 3.0 Conventional Range 3.0 4.5PT Coag (PPP) [Time]9.3 sLow9.4 - 12.5 second(s)[facility] Auto CoagComment on above:Interpretive Data: 15 days [...] the same coagulation reagent and instrumentation as [facility]. Currently there are no coagulation studies available worldwide for children to 14 days, andno normal ranges.ED Note-Physicianon 12-56-6437UJ Note-PhysicianED Note-Physician Basic Information Time Seen: Ludmila [...] and Complexity of Problems Differential Diagnosis: [] [facility] Data External documents reviewed: N/A My [...] the patient be transferred by [facility] to [facility] for further trauma care. Shared decision [...] XR Chest Single View Medications Administered Given TIAP7HJM [F], 0.5 mg, IV Push JAGY4GUM [F], 0.5 mg, IV Push Disposition Plan [...] Lymph Auto: 8.6 % Low (05/16/24 21:58:00) Stafford Auto: 4.3 % (05/16/24 21:58:00) Eos Auto: 3 % (05/16/24 21:58:00) Basophil Auto: 0.4 % (05/16/24 21:58:00) Neutro Absolute: 14.5 E9/L High (05/16/24 21:58:00) Lymph Absolute: 1.5 E9/L (05/16/24 21:58:00) Stafford Absolute: 0.7 E9/L (05/16/24 21:58:00) Eos Absolute: 0.5 E9/L (05/16/24 21:58:00) Basophil Absolute: 0.1 E9/L (05/16/24 21:58:00) PT: 9.3 second(s) Low (05/16/24 21:58:00) INR: 0.83 (05/16/24 21:58:00) PTT: 29.9 second(s) (05/16/24 21:58:00) Glucose Lvl: 143 mg/dL (05/16/24 21:58:00) BUN: 20 mg/dL (05/16/24 21:58:00) Creatinine: 0.8 mg/dL (05/16/24 21:58:00) eGFR: 88 mL/mi (more content not included)...[facility] Comment on above:Result Comment: Electronically Signed By: Ludmila Leach DO\.br\Date and Time Signed: 05/16/24 23:21 EDTEthanolon 72-14-0164Apvglfv Lvl18 mg/dLHigh<=11[facility]er [facility] CenterComment on above:Performed By: #### [id number] #### Tim [facility] [address] [place], [place] [address]XUMXMFSFEGMggqlht By: SYSTEM SYSTEM on 77-26-0815Fcipbcony/100 WBC (Bld)0.4 %Normal0.0 - 2.0 %Remisol HemeBasophils/Leukocytes Auto (Bld) [Pure # fraction]0.1 E9/LNormal0.0 - 0.2 E9/LRemisol HemeEosinophils (Bld) [#/Vol]0.5 E9/LNormal0.0 - 0.5 E9/LRemisol HemeEosinophils/100 WBC (Bld)3.0 %Normal0.0 - 8.0 %Remisol HemeErythrocyte distribution width (RBC) [Ratio]13.1 %Dkmixm72.9 - 14.2 %Remisol HemeHematocrit (Bld) [Volume fraction]41.1 %Dcllom62.7 - 49.0 % Remisol HemeHemoglobin (Bld) [Mass/Vol]14.0 g/aYAxrini53.5 - 17.5 gm/dLRemisol HemeLymphocytes (Bld) [#/Vol]1.5 E9/LNormal1.0 - 4.0 E9/LRemisol Heme Lymphocytes/100 WBC (Bld)8.6 %Low14.0 - 50.0 %Remisol HemeMCH (RBC) [Entitic mass]33.7 kePyxunm12.0 - 34.0 pgRemisol HemeMCHC (RBC) [Mass/Vol]34.2 g/dLNormal 31.4 - 36.0 gm/dLRemisol HemeMCV (RBC) [Entitic vol]98.5 lJRzllom49.0 - 100.0 fL Remisol HemeMonocytes (Bld) [#/Vol]0.7 E9/LNormal0.2 - 1.0 E9/LRemisol Heme Monocytes/100 WBC (Bld)4.3 %Normal4.0 - 14.0 %Remisol HemeNeutrophils (Bld) [#/Vol]14.5 E9/LHigh2.0 - 7.5 E9/LRemisol HemeNeutrophils/100 WBC (Bld)83.7 % High36.0 - 75.0 %Remisol NojnOxdyqiwu071.0 E9/OMjysmf663.0 - 500.0 E9/LRemisol HemePlatelet mean volume (Bld) [Entitic vol]6.3 fLLow6.4 - 10.8 fLRemisol Heme RBC (Bld) [#/Vol]4.2 E12/LLow4.3 - 5.9 E12/LRemisol HemeWBC corrected for nucl RBC Auto (Bld) [#/Vol]17.3 E9/LHigh4.0 - 11.0 E9/LRemisol HemeComment on above: Result Comment: Peripheral smear review performed.Hep Func Panelon 05-16-2024 Albumin [Mass/Vol]4.4 g/dLNormal3.3-5.0[facility] Doctors HospitalComment on above:Performed By: #### [id number] #### [facility] [address] [place], [place] [address]Ckbmcvu/Globulin (S) [Mass conc ratio]1.9Dbhmlj9.1-2.2FAvita Health SystemComment on above:Performed By: #### [id number] #### [facility] [address] [place], [place] [address]YSK [Catalytic activity/Vol]62 Int._Unit/FQfsfnv98-87PmbrkuOhiohealth Doctors HospitalComment on above:Performed By: #### [id number] #### [facility] [address] [place], [place] [address]USD No additional P-5'-P [Catalytic activity/Vol]23 Int._Unit/L Normal6-46Ohiohealth Doctors HospitalComment on above:Performed By: #### [id number] #### [facility] [address] [place], [place] [address]NXX [Catalytic activity/Vol]34 Int._Unit/LNormal5-43Ohio[facility] Doctors HospitalComment on above:Performed By: #### [id number] #### [facility] [address] [place], [place] [address]Xeuwjluhl [Mass/Vol]0.3 mg/dLNormal0.0-1.1FAvita Health SystemComment on above:Performed By: #### [id number] #### [facility] [address] [place], [place] [address]Geabxrbmd.direct [Mass/Vol]0.1 mg/dLNormal0.0-0.4FAvita Health SystemComment on above:Performed By: #### [id number] #### [facility] [address] [place], [place] [address]Smuprcuwr.indirect [Mass or moles/Vol]0.2 mg/dLNormal0.1-0.9 [facility] Doctors HospitalComment on above:Performed By: #### [id number] #### [facility] [address] [place] [address]Wbywwnsk (S) [Mass/Vol]2.6 g/dLNormal1.4-4.0Ohio[facility] Doctors HospitalComment on above:Performed By: #### [id number] #### [facility] [address] [place] [address]Lxufsuk [Mass/Vol]7.0 g/dLNormal6.0-7.8Ohio[facility] Doctors HospitalComment on above:Performed By: #### [id number] #### [facility] [address] [place], [place] [address]Xjaqtf Acidon 95-01-7240Kkmnez Acid Lvl2.5 mmol/LHigh0.5-2.2 [facility] Doctors HospitalComment on above:Performed By: #### [id number] #### [facility] [address] [place] [address]Hbtbqr Levelon 03-95-9242Axdchz [Catalytic activity/Vol]40 U/L Qkbepk98-85PrptehOhiohealth Doctors HospitalComment on above:Performed By: #### [id number] #### [facility] [address] [place], [place] [address]LV & PTTon 72-57-1153bPNI Coag (PPP) [Time]29.9 second(s)Normal 25.1-36.5FAvita Health SystemComment on above:Result Comment: Parameter 15 days - [...] the same coagulation reagent and instrumentation as [facility]. Currently there are no coagulation studies available worldwide for children to 14 days, andno normal ranges. Heparin therapeutic range (represented by Anti-Factor Xa activity of 0.2 - 0.4 U/mL) corresponds to PTT of 56.6 - 109.0 sec.Performed By: #### [id number] #### Tim [facility] [address] [place], [place] [address]XKY Coag (PPP) [Relative time]0.83 {INR}Invalid Interpretation CodeOhiohealth Doctors HospitalComment on above:Result Comment: INR results are specifically intended to assess patients stabilized on long-term Anticoagulation therapy suggested INR?s ?Less Intensive Anticoagulation? 2.0 ? 3.0 Conventional Range 3.0 ? 4.5Performed By: #### [id number] #### [facility] [address] [place], [place] [address]WQ Coag (PPP) [Time]9.3 second(s)Low9.4-12.5FAvita Health SystemComment on above:Result Comment: 15 days - 4 [...] the same coagulation reagent and instrumentation as [facility]. Currently there are no coagulation studies available worldwide for children to 14 days, andno normal ranges.Performed By: #### [id number] #### [facility] [address] [place], [place] [address]Pzscoqodds 87-84-3667Eepseqvp HS5.40 pg/mLLow15.90-38.40Ohiohealth Doctors HospitalComment on above:Result Comment: The 95% CI (Confidence Interval) PPV (Positive Predictive Value) for myocardial infarction in females is 38 pg/mL, in males 51 pg/mL. The results should be used in conjunction with clinical conditions of myocardial infarction. (Access High Sensitivity Troponin I Instructions For Use, Kenyetta Aidan, April 2018)Performed By: #### [id number] #### [facility] [address] [place], [place] [address]rVMIld 76-74-1152jQOU23 mL/min/1.73 c1Sbnbqq>=59Ohiohealth Doctors HospitalComment on above:Order Comment: Order added by Discern Expert. Performed By: #### [id number] #### [facility] [address] [place], [place] [address]QF CHEST 2 Von 32-15-8619FD CHEST 2 VEXAM: XR CHEST 2 V [...] Electronically authenticated by: YINA PAINTER Date: 2022-10-22 16:[address] [place] [address] W MANUAL DIFFon 53-74-8479OQYEQGUD LYMPH #NormalThe Artesian HospitalComment on above:Performed By: #### SMITA #### [facility] [address] [place] [address] Dr. Aixa ArguelloATYPICAL LYMPH %NormalThe Artesian HospitalComment on above: Performed By: #### SMITA #### [facility] [address] [place] [address] Dr. Aixa Costa #Normal0.0-0.3The Artesian HospitalComment on above: Performed By: #### SMITA #### [facility] [address] [place] [address] Dr. Aixa Costa %Normal0-5The [facility] Memorial HospitalComment on above:Performed By: #### SMITA #### [facility] [address] [place] [address] Dr. Aixa Muñiz #0.00 103/ulNormal0.00-0.10The [facility] HospitalComment on above:Performed By: #### SMITA #### [facility] [address] [place] [address] Dr. Aixa Muñiz %0.0 %Critically low0.2-2.0The [facility] HospitalComment on above:Performed By: #### SMITA #### [facility] [address] [place] [address] Dr. Aixa Castaneda #NormalThe Artesian HospitalComment on above:Performed By: #### SMITA #### [facility] [address] [place] [address] Dr. Aixa Castaneda %NormalSt. Francis HospitalComment on above:Performed By: #### SMITA #### [facility] [address] [place] [address] Dr. Aixa VelásquezRRECTED WBCNormal4.0-11.0The Artesian HospitalComment on above: Performed By: #### SMITA #### [facility] [address] [place] [address] Dr. Aixa Carr #0.77 103/ulCritically high0.00-0.70The [facility] Comment on above:Performed By: #### SMITA #### [facility] [address] [place] [address] Dr. Aixa Carr%12.0 %Critically high0.9-7.0The [facility] HospitalComment on above:Performed By: #### SMITA #### [facility] [address] [place] [address] Dr. Aixa ArguelloHCT53.2 %Oksrpc82.0-54.0The [facility] HospitalComment on above: Performed By: #### SMITA #### [facility] [address] [place] [address] Dr. Aixa ArguelloHGB17.0 g/mhTfnxgp66.0-18.0The [facility] HospitalComment on above: Performed By: #### SMITA #### [facility] [address] [place] [address] Dr. Aixa Wells #0.70 103/ulCritically low1.20-3.80The [facility] Comment on above:Performed By: #### SMITA #### [facility] [address] [place] [address] Dr. Aixa Wells%11.0 %Critically low20.5-60.0The [facility] Memorial HospitalComment on above:Performed By: #### SMITA #### [facility] [address] [place] [address] Dr. Aixa NelsonROCYTOSISSLicking Memorial HospitalComment on above: Performed By: #### SMITA #### [facility] [address] [place] [address] Dr. Aixa ArguelloMCH32.0 bkZsnzys89.9-34.0The [facility] HospitalComment on above: Performed By: #### SMITA #### [facility] [address] [place] [address] Dr. Aixa ArguelloMCHC32.0 g/gkNvruns51.9-35.2The [facility] Hospitalment on above:Performed By: #### SMITA #### [facility] [address] [address] [address] Aixa HooperV100.0 fLCritically high80.0-94.0The [facility] HospitalComment on above:Performed By: #### SMITA #### [facility] [address] [address] [address] Aixa BraunOCYTE #NormalMercy Hospital HospitalComment on above: Performed By: #### SMITA #### [facility] [address] [address] [address] Aixa BraunOCYTE %NormalSt. Francis HospitalCommunson medical center on above: Performed By: #### SMITA #### [facility] [address] [place] [address] Dr. Aixa Pierce#0.51 103/ulNormal0.30-0.80The [facility] HospitalComment on above:Performed By: #### SMITA #### [facility] [address] [place] [address] Dr. Aixa Pierce%8.0 %Normal1.7-12.0The [facility] HospitalCommunson medical center on above: Performed By: #### SMITA #### [facility] [address] [place] [address] Dr. Aixa ArguelloMPV8.4 fLCritically low9.5-13.5The [facility] Hospitalment on above:Performed By: #### SMITA #### [facility] [address] [place] [address] Dr. Aixa Dhillon #NormalSt. Francis HospitalCommunson medical center on above:Performed By: #### SMITA #### [facility] [address] [place] [address] Dr. Aixa Dhillon %NormalSt. Francis HospitalCommunson medical center on above:Performed By: #### SMITA #### [facility] [address] [place] [address] Dr. Aixa PandyaNormalThe [facility] HospitalComment on above:Performed By: #### CBCTILA #### [facility] [address] [place] [address] Dr. Aixa ArguelloPLT195 103/brFkajwc917-380Tht [facility] on above: Performed By: #### CBCTILA #### [facility] [address] [place] [address] Dr. Aixa ArguelloRBC5.32 106/ulNormal4.70-6.10The [facility] HospitalCommunson medical center on above:Performed By: #### CBCTILA #### [facility] [address] [place] [address] Dr. Aixa ArguelloRDW13.7 %Gncxsn81.0-15.0The [facility] on above: Performed By: #### SMITA #### [facility] [address] [place] [address] Dr. Aixa Grewal #4.42 103/ulNormal1.40-6.50[facility] on above:Performed By: #### SMITA #### [facility] [address] [place] [address] Dr. Aixa Grewal %69.0 %Ntbnja70.0-75.0The [facility] on above: Performed By: #### SMITA #### [facility] [address] [place] [address] Dr. Aixa ArguelloWBC6.4 103/ulNormal4.0-11.0The [facility] on above: Performed By: #### SMITA #### [facility] [address] [place] [address] Dr. Aixa ArguelloLIPID PROFILEon 56-43-1735MZKV-HDL RATIO NORMSEE [facility] on above:Result Comment: 3.3 - 4.4 LOW RISK 4.4 - 7.1 AVERAGE RISK 7.1 - 11.0 MODERATE RISK >11.0 HIGH RISKPerformed By: #### LIPID, TSH, BMP #### [facility] [address] [place] [address] Dr. Aixa ArguelloCholesterol [Mass/Vol]158 mg/dLNormal<=200The [facility] Comment on above:Performed By: #### LIPID, TSH, BMP #### [facility] [address] [address] [address] Aixa Chilelesterol in HDL [Mass/Vol]79 mg/dLCritically mcnx32-68VhiSt. Francis HospitalComment on above:Performed By: #### LIPID, TSH, BMP #### [facility] [address] [address] [address] Aixa Chilelesterol in LDL [Mass/Vol]53.0 mg/dLNoMcKitrick HospitalComment on above:Performed By: #### LIPID, TSH, BMP #### [facility] [address] [place] [address] Dr. Aixa Hayes.total/Cholesterol in HDL [Mass ratio]2.0 {ratio} NormalThe [facility] HospitalComment on above:Performed By: #### LIPID, TSH, BMP #### [facility] [address] [place] [address] Dr. Aixa Meneses NORMAL> or = 60 mg/dl - LOW CARDIOVASCULAR RISK <40 mg/dl - HIGH CARDIOVASCULAR RISKHolzer HospitalComment on above:Performed By: #### LIPID, TSH, BMP #### [facility] [address] [place] [address] Dr. Aixa Oconnor CALC NORMALSEE BELOWNoMcKitrick HospitalComment on above:Result Comment: <100 mg/dl OPTIMAL 100 - 129 mg/dl NEAR OR ABOVE OPTIMAL 130 - 159 mg/dl BORDERLINE HIGH 160 - 189 mg/dl HIGH >190 mg/dl VERY HIGH Performed By: #### LIPID, TSH, BMP #### [facility] [address] [address] [address] Aixa ArguelloTriglyceride [Mass/Vol]130 mg/dLNormal<=150The [facility] Comment on above:Performed By: #### LIPID, TSH, BMP #### [facility] [address] [place] [address] Dr. Aixa BrunoLDL CALC26.0 mg/dLNoSouthwest General Health Centere [facility] HospitalComment on above: Performed By: #### LIPID, TSH, BMP #### [facility] [address] [address] [address] Aixa ArguelloPROF CHEM 8 (BAS METB)on 32-04-9447Ocqea gap [Moles/Vol]9.0 mmol/LNormalThe [facility] HospitalComment on above:Performed By: #### LIPID, TSH, BMP #### [facility] [address] [address] [address] Aixa ArguelloCalcium [Mass/Vol]9.7 mg/dLNormal8.5-10.1The [facility] Comment on above:Performed By: #### LIPID, TSH, BMP #### [facility] [address] [place] [address] Dr. Aixa ArguelloChloride [Moles/Vol]94 mmol/LCritically ehc68-215Vou [facility] HospitalComment on above:Performed By: #### LIPID, TSH, BMP #### [facility] [address] [place] [address] Dr. Aixa ArguelloCO2 [Moles/Vol]34.9 mmol/LCritically high21.0-32.0The [facility] HospitalComment on above:Performed By: #### LIPID, TSH, BMP #### [facility] [address] [place] [address] Dr. Aixa ArguelloCreatinine [Mass/Vol]1.11 mg/dLNormal0.70-1.30The [facility] Hospitalment on above:Performed By: #### LIPID, TSH, BMP #### [facility] [address] [place] [address] Dr. Kruse ChangEGFR-AF FIJIAN>60Normal>=60The [facility] HospitalComment on above:Performed By: #### LIPID, TSH, BMP #### [facility] [address] [place] [address] Dr. Aixa NicolasGFR-NON AF FIJIAN>60Normal>=60The [facility] HospitalComment on above:Performed By: #### LIPID, TSH, BMP #### [facility] [address] [address] [address] Aixa ArguelloGlucose [Mass/Vol]86 mg/qSLwmmro40-685Yap [facility] Comment on above:Performed By: #### LIPID, TSH, BMP #### [facility] [address] [address] [address] Aixa ArguelloPotassium [Moles/Vol]4.9 mmol/LNormal3.5-5.1The [facility] Comment on above:Performed By: #### LIPID, TSH, BMP #### [facility] [address] [address] [address] Aixa ArguelloSodium [Moles/Vol]133 mmol/LCritically sap356-641Duv [facility] HospitalComment on above:Performed By: #### LIPID, TSH, BMP #### [facility] [address] [address] [address] Aixa ArguelloUrea nitrogen [Mass/Vol]15.0 mg/dLNormal7.0-18.0The [facility] HospitalComment on above:Performed By: #### LIPID, TSH, BMP #### [facility] [address] [address] [address] Aixa Lomas nitrogen/Creatinine [Mass ratio]13.5 mg/mgNormalThe [facility] HospitalComment on above:Performed By: #### LIPID, TSH, BMP #### [facility] [address] [address] [address] Aixa Osborn 76-80-1414LEY6.357 uIU/mLNormal0.358-3.740The [facility] HospitalComment on above:Performed By: #### LIPID, TSH, BMP #### [facility] [address] [place] [address] Dr. Aixa Arguello Vital Signs Date TimeVital SignValuePerforming ThoiyaspmZmywpqzc22-49-8013 23:57-0500 Diastolic blood dadqjtxa01 mm[Hg]Dony Teresa DO Work Phone: [facility]11-06-2025 23:57-0500 Heart rate74 /minBenjamin Ball DO Work Phone: [address] [place], [place] 4792911-06-2025 23:57-0500 Inhaled oxygen flow rate2 L/minBenjamin Ball DO Work Phone: [address] [place], [place] 4792911-06-2025 23:57-0500 Respiratory rate20 /minBenjamin Ball DO Work Phone: [address] [place], [place] 4792911-06-2025 23:57-0500 SaO2% (BldA) [Mass fraction]95 %Dony Ball DO Work Phone: [phone])[address] [place], [place] 4792911-06-2025 23:57-0500 Systolic blood mbdqopjk083 mm[Hg]Dony Ball DO Work Phone: 1(544)[address] [place], [place] 4792911-06-2025 20:56-0500 Body fnbkpsurjzo54.9 [degF]Dony Ball DO Work Phone: 1(204)[address] [place], [place] 4792911-06-2025 12:30-0500 Body jfsduq947.72 cmBenjamin Ball DO Work Phone: 1([phone])[address] [place], [place] 4792911-06-2025 12:30-0500 Body tfxowa53.3 kgBenjamin Ball DO Work Phone: 1(102)[address] [place], [place] 4792911-05-2025 15:51-0500 Body .72 cmBenjamin Ball DO Work Phone: 1(269)[address] [place], [place] 4792911-05-2025 15:51-0500 Body mass index (BMI) [Ratio]18.7 kg/z6Oiedwsma Ball DO Work Phone: 1(430)[address] [place], [place] 4792911-05-2025 15:51-0500 Body ascdiw07.96 kgBenjamin Ball DO Work Phone: 1(100)[address] [place], [place] 4792911-05-2025 15:51-0500 Diastolic blood wqcxvmgo12 mm[Hg]Dony Ball DO Work Phone: 1(294)[address] [place], [place] 4792911-05-2025 15:51-0500 Diastolic blood xtosjvdh40 mm[Hg]Dony Ball DO Work Phone: [facility]11-05-2025 15:51-0500 Heart rate50 /minBenjamin Ball DO Work Phone: [facility]11-05-2025 15:51-0500 Respiratory rate12 /minBenjamin Ball DO Work Phone: [facility]11-05-2025 15:51-0500 Systolic blood ysntffte99 mm[Hg]Dony Ball DO Work Phone: [facility]11-05-2025 15:51-0500 Systolic blood mm[Hg]Dony Ball DO Work Phone: [facility]09-15-2024 23:30-0400 Diastolic blood ffttduli49 mm[Hg]Ludmila Haylee [facility]09-15-2024 23:30-0400Heart rate91 /minNoah Haylee [facility]09-15-2024 23:30-0400Mean blood pkorirad54 mm[Hg]Ludmila Haylee [facility]09-15-2024 23:30-0400 Respiratory rate19 /minNoah Haylee [facility]09-15-2024 23:30-7894TwC5% (BldA) [Mass fraction]94 %Ludmila Haylee [facility]09-15-2024 23:30-0400 Systolic blood svmacmas549 mm[Hg]Ludmila Haylee [facility]09-15-2024 23:15-0400 Diastolic blood lrzyakms00 mm[Hg]Ludmila Hayele [address] [place], [place] 1193709-15-2024 23:15-0400Heart rate89 /minNoah Haylee [address] [place], [place] 1193709-15-2024 23:15-0400Mean blood idvhydbv05 mm[Hg]Ludmila Haylee [address] [place], [place] 5673509-15-2024 23:15-0400 Respiratory rate27 /minNoah Haylee [address] [place], [place] 5673509-15-2024 23:15-0780OwZ1% (BldA) [Mass fraction]92 %Ludmila Haylee [address] [place], [place] 5673509-15-2024 23:15-0400 Systolic blood mm[Hg]Ludmila Haylee [address] [place], [place] 5673509-15-2024 23:00-0400 Diastolic blood ahjjgcvf41 mm[Hg]Ludmila Haylee [address] [place], [place] 5673509-15-2024 23:00-0400Heart rate92 /minNoah Haylee [address] [place], [place] 5673509-15-2024 23:00-0400Mean blood rxayydse617 mm[Hg]Ludmila Haylee [address]09-15-2024 23:00-0400 Respiratory rate21 /minNoah Haylee [address] [place], [place] 1193709-15-2024 23:00-0400 Systolic blood lynvtyml171 mm[Hg]Ludmila Haylee [address] [place], [place] 1193709-15-2024 22:15-0400Heart rate85 /minNoah Haylee [address] [place], [place] 1193709-15-2024 22:15-0400 Respiratory rate22 /minNoah Haylee [address] [place], [place] 5673509-15-2024 22:05-0400Body uoermeujzap63.34 [degF]Ludmila Haylee [facility]09-15-2024 22:05-0400Heart rate87 /minNomagdaleno Haylee [facility]09-15-2024 22:05-0400 Respiratory rate24 /minNoah Haylee [facility]09-15-2024 21:50-0400Body homizjwcjig97.8 [degF]Ludmila Haylee [facility]09-15-2024 21:50-0400Heart rate93 /minNomagdaleno Haylee [facility]04-12-2024 13:56-0400Body wvehfa264.72 cmSum[facility]04-12-2024 13:56-0400Body mass index (BMI) [Ratio]25 kg/n7PuiujiyweSumma Health Wadsworth - Rittman Medical Center04-12-2024 13:56-0400Body .5 kgSumma Health Wadsworth - [facility]ittman [facility] Center04-12-2024 13:56-0400Diastolic blood mm[Hg][facility] 12-12-2023 13:56-0400Heart rate82 /[facility] 12-12-2023 13:56-0400Respiratory rate20 /[facility] 12-12-2023 13:56-0400Systolic blood sebmdgnx009 mm[Hg][facility]10-11-2023 15:30-0400Body cmdvca941.72 cmBensaemin Ball Other [employer] Other 10-11-2023 15:30-0400Body mass index (BMI) [Ratio] 24.33 kg/s5Cmruovgu Ball Other [employer] Other 10-11-2023 15:30-0400Body munovx82.58 kgBenjamin Ball Other [employer] Other 10-11-2023 15:30-0400Diastolic blood wdbqqteb10 mm[Hg] Dony Ball Other [employer] Other 10-11-2023 15:30-0400Respiratory rate20 /minBenjamin Ball Other [facility] [employer] Other 10-11-2023 15:30-0400Systolic blood qtxzfofj623 mm[Hg] Dony Ball Other [employer] Other 10-11-2023 14:30-0400Body hbdlmu658.72 cmBenjamin Ball Other [facility] [employer] Other 10-11-2023 14:30-0400Body mass index (BMI) [Ratio] 24.33 kg/y5Xhgnbjpn Ball Other [employer] Other 10-11-2023 14:30-0400Body rwzjti35.58 kgBenjamin Ball Other [employer] Other 10-11-2023 14:30-0400Diastolic blood oxszxvmm98 mm[Hg] Dony Ball Other [employer] Other 10-11-2023 14:30-0400Respiratory rate20 /minBenjamin Ball Other [employer] Other 10-11-2023 14:30-0400Systolic blood mm[Hg] Dony Ball Other [employer] Other 07-11-2023 13:45-0400Body lxlsau378.72 cmBenjamin Ball Other [employer] Other 07-11-2023 13:45-0400Body mass index (BMI) [Ratio] 23.08 kg/s1Eodwospt Ball Other [employer] Other 07-11-2023 13:45-0400Body bafxne25.86 kgBenjamin Ball Other [employer] Other 07-11-2023 13:45-0400Diastolic blood mm[Hg] Dony Ball Other [employer] Other 07-11-2023 13:45-0400Respiratory rate20 /minBenjamin Ball Other [employer] Other 07-11-2023 13:45-6240OyO4% (BldA) [Mass fraction]94 % Dony Ball Other [employer] Other 07-11-2023 13:45-0400Systolic blood mm[Hg] Dony Ball Other [employer] Other 04-10-2023 16:30-0400Body fmgqat530.72 cmBenjamin Ball Other [employer] Other 04-10-2023 16:30-0400Body mass index (BMI) [Ratio] 24.69 kg/g4Yfeknbtk Ball Other [employer] Other 04-10-2023 16:30-0400Body zydmiz06.66 kgBenjamin Ball Other [employer] Other 04-10-2023 16:30-0400Diastolic blood jorycbxu04 mm[Hg] Dony Ball Other [employer] Other 04-10-2023 16:30-0400Respiratory rate20 /minBenjamin Ball Other [facility] [employer] Other 04-10-2023 16:30-0400Systolic blood ntczxvyi837 mm[Hg] Dony Ball Other [facility] [employer] Other 01-10-2023 16:00-0500Body weedeq027.72 cmBenjamin Ball Other [employer] Other 01-10-2023 16:00-0500Body mass index (BMI) [Ratio]24.6 kg/z2Laqpljsk Ball Other [employer] Other 01-10-2023 16:00-0500Body btbdyx99.39 kgBenjamin Ball Other [facility] [employer] Other 01-10-2023 16:00-0500Diastolic blood jvfeqpix35 mm[Hg] Dony Ball Other [employer] Other 01-10-2023 16:00-0500Respiratory rate20 /minBenjamin Ball Other [employer] Other 01-10-2023 16:00-7874TvT6% (BldA) [Mass fraction]90 % Dony Ball Other [employer] Other 01-10-2023 16:00-0500Systolic blood ivbucvqn407 mm[Hg] Dony Ball Other [employer] Other Encounters Encounter DateEncounter TypeCare ProviderFacilityStart: 68-57-1756Sebiamnfvj and management of inpatientBeamna MooreFacility:[facility] Start: 07-07-2025 End: 21-41-5726yvnswfhkgfZjqlpsyc Ball DO Work Phone: -[facility]ospStart: 07-07-2025 End: 54-41-3058Vwetbrhu Padmini Johnson ([facility]) -[facility] HospStart: 30-96-9211Pqy-patient / Non-visitPacheco Singh MD-[facility] Work Phone: Start: 07-06-2025 End: 88-36-8664miuzqesnanHglfqkfp Ball DO Work Phone: -[facility] Cent[facility]art: 07-06-2025 End: 86-49-1709Dfvhtxk encounter procedureBenfrancois Moore DO-[facility] Work Phone: Start: 25-52-1832Nrwgrwv encounter procedureBeamna Moore DO Work Phone: [facility]tart: 08-18-2024 End: 35-94-3648cmtkoqnaezGzujngu A RitterFacility:MCStart: 08-18-2024 End: 00-46-2500Nvyypqe encounter procedureKaitlin A Ritter [facility] Start: 06-10-2024 End: 82-35-2837Kzfbxbguax and management of inpatientJustin Laura MENA Work Phone: [facility] RadiologyStart: 06-09-2024 End: 66-21-2117Xnnvcsofeh and management of inpatientJustin Laura MENA Work Phone: [facility] RadiologyComment on above:ArrivedStart: 06-08-2024 End: 46-14-2760Weqrzfnzqs and management of inpatientJustin Laura MENA Work Phone: [facility] RadiologyComment on above:ArrivedStart: 06-08-2024 End: 61-15-3411Waxhcnaejo and management of inpatientNOAH HAYLEE Facility:[facility]OHealthStart: 06-06-2024 End: 64-63-1307Xwhtjmwdvw and management of inpatientDebbistdaisy Baca MD Work Phone: [facility] RadiologyComment on above:ArrivedStart: 06-06-2024 End: 63-20-3948Wwmgjwlvgh and management of inpatientJustin Laura MENA Work Phone: [facility] Radiology CTComment on above:ArrivedStart: 06-05-2024 End: 20-69-7680Dqojvgfumy and management of inpatientDebbistdaisy Baca MD Work Phone: [facility] RadiologyComment on above:ArrivedStart: 06-04-2024 End: 77-03-4880Afavawjpgd and management of inpatientJustdaisy Baca MD Work Phone: [facility] RadiologyComment on above:ArrivedStart: 06-03-2024 End: 51-44-9370Juzunvmfap and management of inpatientDebbistdaisy Baca MD Work Phone: [facility] RadiologyStart: 06-02-2024 End: 56-69-7824Onpnmprjdk and management of inpatientDebbistdaisy Baca MD Work Phone: [facility] RadiologyComment on above:ArrivedStart: 06-01-2024 End: 23-75-2017Fajhouahtl and management of inpatientDebbistdaisy Baca MD Work Phone: [facility] Radiology CTComment on above:ArrivedStart: 06-01-2024 End: 89-37-5933Emiekehwfo and management of inpatientDebbistdaisy Baca MD Work Phone: [facility] RadiologyComment on above:ArrivedStart: 05-31-2024 End: 13-94-0622Lsvqwqxwbr and management of inpatientDebbistdaisy Baca MD Work Phone: [facility] RadiologyComment on above:ArrivedStart: 05-30-2024 End: 49-36-1688Yfydwzmsfb and management of inpatientDebbistin Laura MENA Work Phone: [facility] Radiology CTComment on above:ArrivedStart: 05-30-2024 End: 15-04-5894Lfuidmylfh and management of inpatientDebbistdaisy Baca MD Work Phone: [facility] RadiologyComment on above:ArrivedStart: 05-29-2024 End: 11-41-9960Ogquhzyzev and management of inpatientDebbistin Laura MENA Work Phone: [facility] Radiology CTComment on above:ArrivedStart: 05-29-2024 End: 41-45-4500Cqyyinqtqp and management of inpatientDebbistdaisy Baca MD Work Phone: [facility] RadiologyComment on above:ArrivedStart: 05-28-2024 End: 78-78-4794Foayfboglh and management of inpatientDebbistdaisy Baca MD Work Phone: [facility] RadiologyComment on above:ArrivedStart: 05-27-2024 End: 50-13-7545Qthhwkazto and management of inpatientDebbistdaisy Baca MD Work Phone: [facility] RadiologyStart: 05-26-2024 End: 67-95-0943Njixkzlelu and management of inpatientDebbistdaisy Baca MD Work Phone: [facility] RadiologyComment on above:ArrivedStart: 2024 End: 39-18-9223Hnrnummbhb and management of inpatientDebbistdaisy Baca MD Work Phone: [facility] RadiologyComment on above:ArrivedStart: 94-33-8305Zsltzogmxv and management of inpatientNOAH [facility] Facility:[facility]OHealthStart: 05-24-2024 End: 93-45-5410Ovxhjxofij and management of inpatientDebbistdaisy Baca MD Work Phone: [facility] RadiologyComment on above:ArrivedStart: 05-23-2024 End: 95-73-1386Mymesstwns and management of inpatientJustin Laura MENA Work Phone: [facility] RadiologyComment on above:ArrivedStart: 05-22-2024 End: 00-22-3863Wykenmzbjg and management of inpatientJustin Laura MENA Work Phone: [facility] RadiologyComment on above:ArrivedStart: 05-21-2024 End: 28-06-1248Ylwrojdvvs and management of inpatientJustin Laura MENA Work Phone: [facility] RadiologyComment on above:ArrivedStart: 05-20-2024 End: 58-38-8312Utxrhlhmcw and management of inpatientJustin Laura MENA Work Phone: [facility] RadiologyStart: 05-19-2024 End: 16-53-9477Fwlfpoibwr and management of inpatientJustin Laura MENA Work Phone: [facility]iology CTComment on above:ArrivedStart: 05-19-2024 End: 16-77-0325Bzsdhjdrpj and management of inpatientJustin Laura MENA Work Phone: [facility] RadiologyComment on above:ArrivedStart: 05-18-2024 End: 65-41-3667Rroazpvfnt and management of inpatientJustin Laura MENA Work Phone: [facility] RadiologyComment on above:ArrivedStart: 05-17-2024 End: 05-17-2024Zulema ZAMUDIO, [facility] Social WorkComment on above:Trauma/complex Medical SituationStart: 05-17-2024 End: 14-27-3639Mzatizriha and management of inpatientJustin Laura MENA Work Phone: [facility] RadiologyComment on above:ArrivedStart: 05-17-2024 End: 39-15-4327Jwbmoubfel and management of inpatientSjustin Mango MENA Work Phone: [facility] GC 5 WestStart: 05-17-2024 End: 49-88-9914Rdiugsikpe and management of inpatientJustin Laura MENA Work Phone: [facility] Radiology CTComment on above:ArrivedStart: 05-17-2024 End: 08-70-8908rbxgkqxogtLWTFYIB PROVIDERFacility:METROHealthStart: 05-17-2024 Evaluation and management of inpatientNOMAGDALENO WHITENERFacility:METROHealthStart: 05-16-2024 End: 19-33-9584Pxcdjvwpj department patient visitLudmila LeachFacility:[facility] [place] Start: 12-12-2023 End: 75-52-5378qxmazpshqqWzprovmzaChildren's Hospital of [facility] Work Phone: Start: 12-12-2023 End: 03-94-3322Ondzkwg encounter procedureCarolinas Continuecare [facility] Work Phone: Start: 09-18-2023 End: 01-37-9761dquyxrikwqBvilcjbt Ball Other [employer] Other Start: 84-93-4222Eagzzeesz encounterBenjamin BallFPG [facility] ClinicStart: 09-08-2023 End: 02-27-3918reoeziqvogPuxratyl Ball Other [employer] Other Start: 95-99-1005Hzzfnwiik encounterBenjamin BallFPG [facility] ClinicStart: 06-11-2023 End: 89-21-2777aqcaheguukQklqearm Ball Other [employer] Other Start: 83-52-4515Bvthyil encounter procedureBenjamin BallFP[facility] ClinicStart: 91-01-8315Ekzjhueio encounterBenjamin [facility]FP[facility] ClinicStart: 06-04-2023 End: 34-61-4096vgxiudfmilMfspcfmy Ball Other [employer] Other Start: 72-60-1221Fsujdsnil encounterBenjamin [facility]FP[facility] ClinicStart: 06-03-2023 End: 76-54-3289mgfdojkkbxAnjaeaxr Ball Other [employer] Other Start: 01-35-7676Piqhcvokm encounterBenjamin [facility]FP[facility] ClinicStart: 05-29-2023 End: 69-61-2011sakdmrpbsvQgconqge Ball Other [employer] Other Start: 57-41-4738Kfcdjpvuk encounterBenjamin [facility]FP[facility] ClinicStart: 03-11-2023 End: 01-05-3262shhanodhalAzsixurc Ball Other [facility] [employer] Other Start: 72-48-5695Oaplpnjvozdh care manage srvc 7 day dischargeBenjamin BallFPG [facility] ClinicStart: 03-06-2023 End: 79-45-3416hxbkaxvekeInersexh Ball Other [employer] Other Start: 96-86-6049Huqmfgrrg encounterBenjamin [facility]FP[facility] ClinicStart: 12-09-2022 End: 76-35-5362fbgboygvqcUnxzepnv Ball Other [employer] Other Start: 29-56-2002Zlsdgn outpatient visit 25 minutes Dony BallFP[facility] ClinicStart: 10-22-2022 End: 63-89-6194zuncotdysnHD DONY BALLFacility:R0Smihb: 09-10-2022 End: 25-06-5775pbkfxvsyamZlixxtkt Ball Other [place] [employer] Other Start: 68-06-4816Xnakye outpatient visit 25 minutes [facility] ClinicStart: 02-13-2022 End: 47-31-6420nfbcnafxxeZE DONY Pelayocility:H5Yjkni: 29-64-5271Rsivy health examinationBenjakisha Moore Other nort [employer] Other Procedures DateProcedureProcedure DetailPerforming ClinicianStart: 80-82-6432Naenudkr screenMariam Diab (TBH)Comment on above:Result Comment: PERFORMED BY: [address] [place] [address] PATHOLOGIST INDUSTRIAL ACCOUNTANT VALERIE CAMPBELL M.D.Start: 35-12-5880Ksderhnqqz exam chest single viewMalik Ramos MD Work Phone: Start: 10-31-3659Wvzlaygqpl exam chest single view Jose M Straamyugh DO Work Phone: start: 66-79-9501Jrabjkssfd exam chest single view Malik Ramos MD Work Phone: Start: 16-48-1850Sa chest real time w/image documentationValery Reyna MD Work Phone: Start: 34-32-9066Nf thorax w/contrast materialLorne Strageorge DO Work Phone: start: 45-94-4699Apeygnnnvu exam chest single view Valery Reyna MD Work Phone: Start: 77-91-3308Alglcyplsf exam chest single view Valery Reyna MD Work Phone: Start: 21-59-3248Hfsimxaltw exam chest single view Valery Reyna MD Work Phone: Start: 11-03-2167Bwhgucwkoe exam chest single view Cailin Beltran MD Work Phone: Start: 68-13-5992Mx thorax w/contrast materialCailin Beltran MD Work Phone: [phone]: 71-54-8409Aggfhedqec exam abdomen 1 viewRachel Lina DO Work Phone: [phone]: 07-34-4401Hbrxmlekys exam chest single view Matt Mckeonboom DO Work Phone: [phone]: 41-52-9117Rc abdomen & pelvis w/contrast materialMatt Freda DO Work Phone: [phone]: 19-42-6428Eduosfkyvw exam chest single view Rajiv Valdes MD Work Phone: [phone]: 16-27-5957Vg abdomen & pelvis w/contrast Antonio Ramirez MD Work Phone: [phone]: 08-61-9084Wz angiography chest w/contrast/noncontrastAljaquelin Ramirez MD Work Phone: [phone]: 78-85-5100Sllzqecncy exam chest single view Rajiv Valdes MD Work Phone: [phone]: 75-15-0391Exphsseqlq exam chest single view Lino Armijo MD Work Phone: [phone]: 35-87-8273Pqatxztllw exam chest single view Jahaira Eduardo MD Work Phone: [phone]: 97-78-6648Xkdydqvwpr exam chest single view Lino Armijo MD Work Phone: [phone]: 60-16-8637Wgqehduyhm exam chest single view Lion Armijo MD Work Phone: [phone]: 23-59-8230Vxfvaffxve exam chest single view Katie Lina DO Work Phone: [phone]: 55-95-3405Dnueslpnbc exam chest single view Matt Barba DO Work Phone: [phone]: 32-43-2489Adpolcusan exam chest single view Neyda Bobby MD Work Phone: Start: 60-70-0165Dqzqjeyhrb exam chest single view Neyda Bobby MD Work Phone: Start: 37-96-4880Bvnimxcloz exam chest single view Katie Mills DO Work Phone: Start: 35-26-8221Sm thorax w/o contrast Nikki Burton MD Work Phone: [phone]: 18-23-5394Lrazixgvxj exam chest single viewKimberlee Wright DO Work Phone: [phone]: 16-73-2625Hulgcanbej exam chest single view Rahul Lewis MD Work Phone: Start: 05-17-2024 End: 74-18-2996Hw guidance needle placement img s&iSahyumiko Cobian MD Work Phone: start: 20-06-3058Ftftvszt procedure nervous system Shaan Cobian MD Work Phone: start: 19-89-2952Dyndkvhosr exam chest single view Rahul Lewis MD Work Phone: Start: 20-28-6078Zz pelvis w/o contrast Anayeli Ford DO Work Phone: Start: 38-67-7501Ccpohtfqtk screeningBenjamin Ball Other Depression screeningBenjamin Ball Other Plan of Treatment DateCare ActivityDetailAuthorStart: 84-59-0196YsdcqbkekSumma Health [facility] Start: 44-79-7571PmgrdncfbRiverside Methodist Hospitaltart: 47-15-1665AmirynnoeRiverside Methodist Hospitaltart: 07-53-9826UeblquijgRiverside Methodist Hospitaltart: 43-78-1335Kmsmqwyz to nephrologistRiverside Methodist Hospitaltart: 14-14-4225Yazkflzj admissionRiverside Methodist Hospitaltart: 07-07-2025 Bacteria identified in Urine by CultureUrine CultureRiverside Methodist Hospitaltart: 37-46-7799Dqqgh [facility] Centertart: 62-29-2145Xuljqjwkn vaccinationInfluenza Vaccine (#1)[facility]Start: 89-29-1363DXEOO-19 Vaccine ( season)COVID-19 Vaccine ( season)[facility]Start: 48-20-0960Mnjokgyud vaccinationInfluenza Vaccine (#1) [facility]HealthStart: 16-50-2979MOQ Vaccine (75+ years)RSV Vaccine (75+ years) [facility]Start: 22-18-8263Fwymqt wellness visitAnnual Wellness Visit (G0438) [facility]HealthStart: 76-33-4199Gudfweyoousq vaccinationPneumococcal Vaccine(s) (65+ yrs) (1 of 1 - PCV)[facility]Start: 45-69-1382Bywrcpbqb B (HBV) Vaccine (optional start 60+ years)Hepatitis B (HBV) Vaccine (optional start 60+ years) [facility]HealthStart: 16-92-4232Oqgamxno (RZV) Vaccine (1 of 2)Shingles (RZV) Vaccine (1 of 2)[facility]HealthStart: 64-70-3344Jfdvaggnf A (HAV) Vaccine (optional start 19+ years)Hepatitis A (HAV) Vaccine (optional start 19+ years)[facility] Start: 03-41-6872Kbox BoosterTdap BoosterMetroHealthStart: 1946 Pneumococcal vaccinationPneumococcal Vaccine(s) (65+ yrs) (1 of 2 - PCV) MetroHealthAnion gap measurementSumma Health Wadsworth - Rittman Medical CenterBacteria identified in Stool by CultureSumma Health Wadsworth - Rittman Medical CenterErythrocyte distribution width [Ratio] by Automated countSumma Health Wadsworth - Rittman Medical Center Erythrocytes [#/volume] in [facility]erm[facility] HospitalGlomerular filtration rate [Volume Rate/Area] in Serum, Plasma or Blood by Creatinine [facility] Medical CenterHematocrit [Volume Fraction] of [facility] HospitalHemoglobin [Mass/volume] in [facility] HospitalLeukocytes [#/volume] corrected for nucleated erythrocytes in Blood by Automated counSumma Health Wadsworth - Rittman Medical CenterMCH [Entitic mass] by Automated [facility] HospitalMCHC [Mass/volume] by Automated [facility] HospitalMCV [Entitic volume] by Automated [facility] HospitalPEG WITH TRACHEOSTOMYPEG WITH TRACHEOSTOMY Routine scheduled Closed fracture of multiple ribs with flail chest, initial e ncounterMetroHealthPlatelet mean volume [Entitic volume] in Blood by Automated [facility] HospitalPlatelets [#/volume] in BloodRiverside Methodist Hospitalalmonella and Shigella sp identified in Stool by Organism specific cultureSumma Health Wadsworth - Rittman Medical CenterTHORACOSCOPY THORACOSCOPY 5/E - Within 24 Hours Closed fracture of multiple ribs with flail chest, initial encounterMetroHealth Immunizations Immunization DateImmunizationNotesCare PsbqmlfqCobvvcwu79-49-6932gzuyjzvrb, high dose seasonal, preservative-freeBenfrancois Moore Other [employer] Other 648613-44-4996xcyhpegfo virus vaccine, unspecified formulationSumma Health Wadsworth - Rittman Medical Center07-11-2023Prevnar 20Benfrancois Moore Other [facility]10-19-2021influenza virus vaccine, split virus (incl. purified surface antigen)Dony Moore Other [employer] Other 10-594760-98-9086tobxeyclx virus vaccine, unspecified formulationSumma Health Wadsworth - Rittman Medical Center12-02-2020influenza virus vaccine, split virus (incl. purified surface antigen)Dony Moore Other [employer] Other 12815991-82-0064vdkexrcvw virus vaccine, unspecified formulationSumma Health Wadsworth - [facility]ittman Medical Center Payers DatePayer CategoryPayerPolicy [id number] 2006MedicareMEDICARE - RAILROAD MEDICARE RAILROAD FDC [id number] 2006-Present [address] [address] [place] [address] Medicare [id number] [id number] 2.16.840.8.97262[id number] 2.16.840.5.641766.9844-24-1941 [id number] 2.16.840.1.274497.3.579.2.52148-96-2216Dnxrran7825197 2.16.840.1.692947.3.579.2.82178-61-7878Bzuedhv72480887 2.16.840.1.850560.3.579.2.53655-16-3929Gylfuka16235639 2.16840.1.972150.3.579.2.19306-10-4943Xnlyxcw94431214 2.16.840.1.641331.3.579.2.62663-01-1244Eymabyb00415293 2.16.840.1.598437.3.579.2.28910-04-8379Lkfwkqz001952731 2.16.840.1.279605.3.579.2.08882-27-0306Lstbnop201587928 2.16840.1.086935.3.579.2.40901-32-4042Cbnsder063767329 2.16.840.1.475659.3.579.2.33213-89-9798Vsrtoll875096794 2.16840.1.924552.3.579.2.62058-13-2198Zrwezkk051053252 2.16.840.1.886538.3.579.2.64719-06-6230Lqtojac650652858 2.16840.1.573453.3.579.2.55586-43-0326Vjmmfpu045835012 2.16.840.1.005714.3.579.2.55742-08-9722Ghayyrf543427546 2.16.840.1.712516.3.579.2.25972-29-7626Lfuoupk007473740 2.16.840.1.106194.3.579.2.00358-11-4573Obahrlu903725006 2.16.840.1.252483.3.579.2.75236-87-0018Vtaeupt015390781 2.16.840.1.761237.3.579.2.94608-17-3759Mkfzyqq891050469 2.16.840.1.071753.3.579.2.41286-77-6928Kigjxki911773220 2.16.840.1.751456.3.579.2.05507-56-4091Gyohiqb229030124 2.16.840.1.139964.3.579.2.74676-74-3064Nbhzddy650895323 2.16.840.1.544552.3.579.2.60276-18-2338Mujbigb990279357 2.16.840.1.451330.3.579.2.01058-10-2867Xwlsylm033675079 2.16.840.1.346637.3.579.2.88707-23-5803Nxmdkut924677720 2.16.840.1.505795.3.579.2.04637-04-9214Tbvbuhs736813636 2.16.840.1.504063.3.579.2.36239-72-6819Lifmdmu789357900 2.16.840.1.342647.3.579.2.30917-98-1597Avevvla119170500 2.16.840.1.767230.3.579.2.80305-85-1062Lyrqxrm258961367 2.16.840.1.412347.3.579.2.63873-51-8468Jtepbbw384117919 2.16.840.1.899758.3.579.2.33218-11-4995Askxeiq620072160 2.16.840.1.361457.3.579.2.33439-16-6328Cyjsxis794997034 2.16.840.1.926715.3.579.2.70689-54-0100Eurvqal328870575 2.16.840.1.055577.3.579.2.55278-67-3345Cwyiwgl936705489 2.16.840.1.791766.3.579.2.82578-67-9196Nsdjwfw354615789 2.16.840.1.975108.3.579.2.77463-98-3719Iwrskmn981173885 2.16.840.1.541450.3.579.2.53937-47-8623Augvspy864842346 2.16.840.1.942270.3.579.2.48803-73-9173Hidpmsc173643136 2.16.840.1.391407.3.579.2.20824-77-4814Xfjtlws010652971 2.16.840.1.991246.3.579.2.66410-81-6050Ngahfuc893998324 2.16.840.1.683644.3.579.2.47419-23-9460Pmtblqy008486445 2.16.840.1.640642.3.579.2.63880-58-0910Ixkolan181416600 2.16.840.1.622453.3.579.2.89588-67-8240Lfnybjj960775383 2.16.840.1.367418.3.579.2.62352-72-0754Zgqedut822112932 2.16.840.1.147216.3.579.2.04581-46-2843Ydgenbx071069936 2.16840.1.926920.3.579.2.37662-06-0840Jecwvyo092104544 2.16840.1.652813.3.579.2.25610-87-5254Kwipyba506924411 2.16840.1.146193.3.579.2.82435-01-5807Qzyuplc442263186 2.16840.1.831407.3.579.2.84695-51-7263Nhumxzq519906333 2.16840.1.467607.3.579.2.42914-89-1834Njmikrb296557114 2.16840.1.478345.3.579.2.98672-18-9739Lzzctvj815234805 2.16840.1.813186.3.579.2.40083-16-9153Jwbnamr381264574 2.16840.1.652247.3.579.2.40205-24-9677Dnfrevh173666839 2.16840.1.759365.3.579.2.12063-42-0199Mqwgoxb091172286 2.16840.1.406960.3.579.2.18707-56-0398Gwkxhiq370604460 2.16.840.1.732463.3.579.2.94590-62-6426Tsyautc968216525 2.16.840.1.044128.3.579.2.74750-00-5216Gnrzmrz047402096 2.16.840.1.243337.3.579.2.11607-38-0212Ysevwjn065952450 2.16.840.1.295046.3.579.2.34918-54-8369Tlmjwwn693280434 2.16.840.1.972592.3.579.2.82811-69-8291Kwownoa381784436 2.16.840.1.678891.3.579.2.44857-04-2637Vuwwiwi214267690 2.16.840.1.198127.3.579.2.29262-56-3693Utytqqi997839277 2.16.840.1.526042.3.579.2.75058-97-8259Bfvtakm767666193 2.16.840.1.981731.3.579.2.70226-99-7362Cfnpvec438635298 2.16.840.1.433644.3.579.2.32127-57-6950Wjsdwoj794546371 2.16.840.1.779221.3.579.2.19286-85-7903Gokopwh566622356 2.16.840.1.691704.3.579.2.34494-13-9122Rssfgkk275048299 2.16.840.1.316160.3.579.2.07889-50-2285Nwhagyu286709284 2.16.840.1.136138.3.579.2.61670-47-2633Vxpzzid207932044 2.16.840.1.620462.3.579.2.12630-49-0493Qyitnel159168913 2.16.840.1.931275.3.579.2.37389-42-2297Rguuxif142034592 2..840.1.602640.3.579.2.73637-25-3653Jiixjsi91480519 2..840.1.697823.3.579.2.39695-44-6089Gcwiuey2015 2..840.1.249929.3.579.2.371Avmxxnf20141625 2..840.1.820207.3.579.2.531 Nflcwch40714461 2..840.1.238597.3.579.2.531 Social History DateTypeDetailFacilityStart: 28-59-6783Xpe Assigned At BirthMetroHealthStart: 44-00-5112Hbm Assigned At BirthMarion HospitalTobacco smoking status NHISTobacco smoking consumption unknownMetroHealthStart: 56-76-2672Add assigned at birthNot on fileMetroHealthStart: 60-93-1751Cudtuuu of Social functionMetroHealth(I/We) worried whether (my/our) food would run out before (I/we) got money to buy more.Never trueMetroHealthIn the past 12 months, has lack of transportation kept you from medical appointments or from getting medications?NoMetroHealthIn the past 12 months, was there a time when you were not able to pay the mortgage or rent on time?NoMetroHealthStart: 05-16-2024 Tobacco smoking statusLight tobacco smoker (finding)[facility] Dublintart: 01-17-2025 End: 83-57-6511Mslghsx smoking status NHISCurrent some day smokerRiverside Methodist HospitalexMale (finding)[facility] Medical Equipment Procedure CodeEquipment CodeEquipment Original TextEquipment IdentifierDatesCap Orth Lck Hex Drv Ns Lf Ea1 [id number] - [id number]_bgvYvlzo: 37-05-7532Zcn 23mm Brdg Lck Post Ea1 5348824 - [id number]_imqEttkz: 05-93-2501Cmwb Orth 23mm Lng Brdg Post Ea1 8327321 - [id number]_eeuGlozy: 26-92-3680Tfim Orth Ns Lf Ea1 2167748 - [id number]_tyoUorlj: 05-20-2024 Functional Status KtklFzpohdjtwhXhyqkeKqzkiwra88-16-8251Fetluejtqy StatusN/AFisher - [facility] Clinical Notes 09-10-2022 to 07-06-2025 Note Date & UpweBdbeCmeebnat32-08-9660 Evaluation note* Diagnosis Onset Date Resolution Status Admit Date Acquired hemophilia A acuteNovember 2024 3:39pmASHD (arteriosclerotic heart disease)acuteNov2024 3:39pmDecreased appetiteacuteNov2024 3:39pmDiarrheaacute July 06, 2025 3:39pmEssential (primary) hypertensionacuteNov2024 3:39pmMucopurulent chronic bronchitisacuteNov2024 3:39pmNicotine dependenceacuteNov2024 3:39pmPrerenal azotemiaacuteNov2024 3:39pmPulmonary noduleacuteNov2024 3:39pmAKI (acute kidney injury) acuteNov2024 2:00pmDiarrheaacuteNov2024 2:00pmEssential (primary) hypertensionacuteNov2024 2:00pmNicotine dependenceacute July 07, 2025 2:00pmPrerenal azotemiaacuteNov2024 2:00pm [facility] Work Phone: [phone] NoteThe [facility]09[facility] Note- per patient controlled by oxycodone 10 mg q4hr prn for severe pain -consider pain management consult for consideration of procedure options for non-cancer acute painThe [facility]09-24-2024 Note-per patient controlled by oxycodone 10 mg q4hr prn for severe pain -consider pain management consult for consideration of procedure options for non-cancer acute painThe [facility]09-16-2024 Anesthesiology procedure note* Anesthesia Acute Pain - Maurisio Fontanez MD - 05/17/2024 7:10 PM EDT Acute Pain Service Follow Up Note Patient with R-sided MADDIE catheter in situ for post-operative pain (+-7cm catheter length threaded into plane). Current basal infusion rate: 0.4% Lidocaine 12cc x06srzt intermittent bolus with no patient bolus. Subjective: [...] during work hours or the Senior Anesthesiaresident attendant children's institution in the Main OR after hours if there are any questions. Maurisio Fontanez MD Anesthesia PGY-4 Pain pager: [phone] [employer] Work Phone: [phone] Miscellaneous Notes* Anesthesia Acute Pain - Maurisio Fontanez MD - 05/17/2024 7:10 PM EDT Acute Pain Service Follow Up Note Patient with R-sided MADDIE catheter in situ for post-operative pain (+-7cm catheter length threaded into plane). Current basal infusion rate: 0.4% Lidocaine 12cc b52kxvn intermittent bolus with no patient bolus. Subjective: [...] during work hours or the Senior Anesthesiaresident attendant children's institution in the Main OR after hours if there are any questions. Maurisio Fontanez MD Anesthesia PGY-4 Pain pager: [phone] * Anesthesia Acute Pain - Shaan Cobian [...] Pulmonary: COPD Cardio-vascular: HTN, CAD, and Previous ME Musculoskeletal: LUE, LLE, RUE, and RLE motor [...] Social Determinants of Health Received from [facility] Safety & Environment has no history [...] Pain Medicine 05/17/2024, 2:17 PM APS service [phone] Associated attestation - Girish Shannon MD - [...] time. Girish Shannon MD documented in this [id number] Anesthesiology procedure note * Anesthesia Acute Pain [...] Pulmonary: COPD Cardio-vascular: HTN, CAD, and Previous ME Musculoskeletal: LUE, LLE, RUE, and RLE motor [...] Social Determinants of Health Received from [facility] Safety & Environment has no history [...] Pain Medicine 05/17/2024, 2:17 PM APS service [phone] Associated attestation - Girish Shannon MD - [...] toxicity at this time. Girish Shannon MD OteagWtjamd34-72-2628 Anesthesiology procedure note* Anesthesia Procedure Notes - [...] Slow fractionated injection: yes No block complications [facility] HospitalTjixaRezvax38-92-0358 Surgical operation note* Anesthesia Procedure Notes - [...] yes No block complications documented in this qyezpfsbvXapinZwhglm14-01-0711 History of Present illness Narrative* Jane Samson SW, LSW - 05/17/2024 1:24 AM EDT Cat 1 Pt is an 83 yo M presenting via [facility] from [facility] [place] s/p fall down 6-8 steps with multiplerib fractures, hemathorax with chest tube, and pubic ramus fracture. Per report pt fell down basement steps and was on the ground for 1-1.5 hours until his spouse foundhim and called 911. With permission, ROBB contacting spouse Ilana Michelle ([phone]). Spouse aware of pt'spresentation to ED and plan to admit. Spouse plans to call/visit tomorrow. Plan: Admit MARGIE Mendez, OPTICAL LENS MANUFACTURING TECH ED Door Opener documented in this [id number] NoteConsultation Note TRAUMA HISTORY & PHYSICAL BASIC [...] Lymph Auto: 8.6 % Low (05/16/24 21:58:00) Stafford Auto: 4.3 % (05/16/24 21:58:00) Eos Auto: 3 % (05/16/24 21:58:00) Basophil Auto: 0.4 % (05/16/24 21:58:00) Neutro Absolute: 14.5 E9/L High (05/16/24 21:58:00) Lymph Absolute: 1.5 E9/L (05/16/24 21:58:00) Stafford Absolute: 0.7 E9/L (05/16/24 21:58:00) Eos Absolute: [...] (05/16/24 21:58:00) Sodium Lvl: 126 mmol/L Low (05/16/24:58:00) Potassium Lvl: 3.8 mmol/L (05/16/24 21:58:00) Chloride: 92 mmol/L Low (05/16/24:58:00) CO2: 23 mmol/L (05/16/24:58:00) AGAP: 15 mEq/L (05/16/24:58:00) Calcium Lvl: 9.5 mg/dL (05/16/24 21:58:00) Alk Phos: 62 Int._Unit/L (05/16/24 21:58:00) ALT: 23 Int._Unit/L (05/16/24:58:00) AST: 34 Int._Unit/L (05/16/24:58:00) Total Protein: 7 gm/dL (05/16/24:58:00) Albumin Lvl: 4.4 gm/dL (05/16/24 21:58:00) Globulin: 2.6 gm/dL (05/16/24 21:58:00) A/G Ratio: 1.7 (05/16/24:58:00) Bili Total: 0.3 mg/dL (05/16/24 21:58:00) Bili Direct: 0.1 mg/dL (05/16/24 21:58:00) Bili Indirect: 0.2 mg/dL (05/16/24 21:58:00) Lipase Lvl: 40 unit/L (09/15/24 21:58:00) Lactic Acid Lvl: 2.5 mmol/L High (05/16/24 21:58:00) Troponin HS: 5.4 pg/mL Low (05/16/24 21:58:00) Ethanol Lvl: 18 mg/dL High (05/16/24 21:58:00) ABO/Rh: A POS (05/16/24 21:58:00) ABSC Gel Interp: Negative (05/16/24 21:58:00) RADIOLOGY: all imaging personally reviewed by me in real time to expedite patien (more content not included)...[facility] Doctors HospitalComment on above: Result Comment: Electronically Signed By: Mackenzie MENA, Santso Vicente\.br\Date and Time Signed: 05/17/24 00:05 [id number] NoteProcedural PROCEDURE NOTE: PIGTAIL CHEST TUBE PLACEMENT [...] tolerated the procedure well. Santos Mann MD [facility] Trauma and Emergency General SurgeryOhiohealth Doctors Hospital09-15-2024 Evaluation + Plan noteExtracted from:Title:ED Note [...] Tests Pending * Drug Screen Urine 05/16/24 [facility] 01-18-2024 Evaluation note* Encounter Date Diagnosis Assessment Notes Treatment Notes Treatment Clinical Notes Sep, Xerosis cutis (ICD-10 - L85.3) [facility] Other 10-11-2023 Evaluation note* Encounter Date Diagnosis [...] requiring intubation - doesn't require home oxygen 11 Oct, 2023Primary hypertension (ICD-10 - I10)This patient is instructed [...] consistent w/ hypothyroid or TSH > 8 [facility] Other 10-11-2023 Evaluation note* Encounter Date Diagnosis [...] respiratory infections, vascular disease and c ancers. [facility] Other 10-03-2023 Evaluation note* Encounter Date Diagnosis Assessment Notes Treatment Notes Treatment Clinical Notes Jun, Pulmonary nodule (ICD-10 - R91.1 ) CT: 1.1cm EMMIE nodule - 03/2023, CT: no change EMMIE nodule - 06/2023 [facility] Other 09-28-2023 Evaluation note* Encounter Date Diagnosis Assessment Notes Treatment Notes Treatment Clinical Notes May, Pulmonary nodule (ICD-10 - R91.1 ) [facility] Other 07-11-2023 Evaluation note* Encounter Date Diagnosis [...] Small subsegmental PE does not require AC [facility] Other 04-10-2023 Evaluation note* Encounter Date Diagnosis [...] low fat diet. Monitor for GI bleeding. [facility] Other 01-10-2023 Evaluation note* Encounter Date Diagnosis [...] without hemorrhage (ICD-10 - K21.00) Sep,OtherSymtoms tolerable [place] [facility] Other Evaluation noteNo InformationNort [employer] Other Evaluation noteNo assessment information available [facility] Work Phone: History general Narrative [...] extremitySurgical HistoryIVC filterSurgical HistoryappendectomyHospitalization Historysee surgical history [facility] Other History general Narrative - Reported* Type [...] HistoryIVC filterSurgical Historyappendectomy Hospitalization Historysee surgical history [facility] Other Hospital course Narrative No data available for this section [facility] Hospital Discharge instructions No data available for this section [facility] Procedure anesthesia Narrative* Procedure Name Responsible AnesthesiologistAnesthesia Start TimeAnesthesia Stop TimeACUTE PAIN [id number] Equip Check* NameTotal lidocaine methylparaben-free (XYLOCAINE) injection 2 %20 mL * Agents No agents on file. * Blood No blood administrations on file. TypeDetailsPlacementRemovalChest Tube:05/17/24; Right, Upper; Abdomen; Present on Arrival to Hospital / Inserted by EMS05/17/24 0000 by Susan Webb RN Indwelling Urinary Vmlazwou50/16/24; 0326; 16 FR; Temperature-sensing catheter; 10; RN05/17/24 0326 by Susan Webb RNEpidural05/17/24; 20177605/17/24 1400 by Amanda Whipple RNPeripheral IV Line05/19/24; 1200; 20 gauge; Anterior, Right; Hzrrjhi27/18/24 1200 by Amanda Whipple RNPeripheral IV Line05/19/24; 1200; 18 gauge; Left, Posterior; Wrist05/19/24 1200 by Amanda Whipple RN [facility] N[facility]* Procedure NameResponsible AnesthesiologistAnesthesia Start TimeAnesthesia Stop TimeACUTE PAIN CONSULT FnolTstkKnldbPtjunme19/16/[id number] Equip Check* NameTotallidocaine methylparaben-free (XYLOCAINE) injection 2 %20 mL * Agents No agents on file. * Blood No blood administrations on file. TypeDetailsPlacementRemovalIndwelling Urinary Ywjdnuld61/16/24; 0326; 16 FR; Temperature-sensing catheter; 10; RN05/17/24 0326 by Susan Webb RN Vbbfztgu04/16/24; 12924105/17/24 1400 by Amanda Whipple RNPeripheral IV Line 05/19/24; 1200; 18 gauge; Left, Posterior; Wrist05/19/24 1200 by Amanda Whipple RNAdvanced Rzkxiz64/18/24; 1430; # 7.5; Bilateral breath sounds, Equal chest rise & fall, End-tidal CO2 color detector (+color change); Equal bilateral breath sounds, CO2 confirmed; Glidescope, Bite block sinrmp88/18/24 1430 by Amanda Whipple RNArterial Line05/19/24; 1530; Left; Ihnftt78/18/24 1530 by Amanda Whipple RNWound05/19/24; 2030; Right; Arm; Other; infiltration of levophed; N005/19/24 2030 by Cristina Sun RNOG/NG05/19/24; 2100; O/G; 18 Fr; Oral; 60 cm05/19/24 2100 by Amanda Whipple RNCVC - Triple Lumen05/19/24; 2144; Central Line; Left; IJ; wire-guided, ultrasound /18/24 2145 by Cristina Sun RNChest Tube:05/20/24; 1505; # 1; Right, Upper; Moavzyd41/19/24 1505 by Chon Arvizu Tube:05/20/24; 1506; # 2; Right, Upper; Xuldyzs61/19/24 1506 by Nalini Arvizu05/20/24; 1520; Right; Chest; Surgical - Incision; 1 incision sutured dressed with island dressingchest tubes dressed with xeroform and tegadermtegaderm and 2x2 to previous chest tube site05/20/24 1520 by Geraldine Arvizu in this encounter [facility] N[facility]* Procedure NameResponsible AnesthesiologistAnesthesia Start TimeAnesthesia Stop TimeACUTE PAIN CONSULT FtzwBeybAbjixYihcxzt96/16/01835863PE Equip Check* NameTotallidocaine methylparaben-free (XYLOCAINE) injection 2 %20 mL * Agents No agents on file. * Blood No blood administrations on file. TypeDetailsPlacementRemovalIndwelling Urinary Pfjksmkf71/16/24; 0326; 16 FR; Temperature-sensing catheter; 10; RN05/17/24 0326 by Susan Webb RN Udztbqgp73/16/24; 04268805/17/24 1400 by Amanda Whipple RNWound05/19/24; 2030; Right; Arm; Other; infiltration of levophed; N005/19/242029 by Cristina Sun RNCVC - Triple Lumen05/19/24; 2145; Central Line; Left; IJ; wire-guided, ultrasound tdwymu45/18/24 2145 by Cristina Sun RNChest Tube:05/20/24; 1505; # 1; Right, Upper; Epbfiea39/19/24 1505 by Chon Arvizu Tube:05/20/24; 1506; # 2; Right, Upper; Wpbjdse61/19/24 1506 by Negra ArvizuWound05/20/24; 1520; Right; Chest; Surgical - Incision; 1 incision sutured dressed with island dressingchest tubes dressed with xeroform and tegadermtegaderm and 2x2 to previous chest tube site05/20/24 1520 by Negra ArvizuOG/NG05/21/24; 1530; Nostril; 60 cm05/21/24 1530 by Sukhwinder Ca RNPeripheral IV Line05/22/24; 0941; 20 gauge; Posterior, Right; Wrist05/22/24 0941 by Sukhwinder Ca RNPeripheral IV Line05/22/24; 0943; 20 gauge; Left, Posterior; Wrist05/22/24 0943 by Sukhwinder Ca RNdocumented in this encounter [facility]Progress note No data available for this section [facility] Reason for referral (narrative)No reason for referral information availableMercy Health St. 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 ASHD (arteriosclerotic heart disease) No vem2024 3:39pm Decreased appetite July 06, 2025 3 :39pm Diarrhea July 06, 2025 3 :39pm Essential (primary) hypertension Novembe r 2024 3:39pm Mucopurulent chronic bronchitis July 06, 2025 3:39pm Nicotine dependence July 06, 2025 3 :39pm Prerenal azotemia July 06, 2025 3 :39pm Pulmonary nodule July 06, 2025 3 :39pm CAMILLA (acute kidney injury) July 07, 2025 2:00pm Diarrhea July 07, 2025 2 :00pm Essential (primary) hypertension Novembe r 2024 2:00pm Nicotine dependence July 07, 2025 2 :00pm Prerenal azotemia November 6th, 2025 2 :00pm Additional Source Comments REASON FOR VISIT (unrecogniz ed section and content) ReasonCommentsTrauma/complex Medical SituationSpecialtyDiagnoses / Procedures Referred By ContactReferred To ContactEmergency Medicine Diagnoses Fall (on) (from) other stairs [...] fractures with chest tube Procedures NA [facility] [facility] [place] [address] Phone: [phone] [facility] [place] [address] Phone: [phone] Referral IDStatusReasonStart DateExpiration DateVisits RequestedVisits [id number] (unrecognized sect ion and content) No Status [...] and content) DATE CREATED AUTHOR 10/26/2022 [facility] DATE CREATED AUTHOR AUTHOR'S ORGANIZ ATION 05/17/2024 [facility] DATE CREATED AUTHOR AUTHOR'S ORGANIZ ATION 07/12/2024 [facility] DATE CREATED AUTHOR AUTHOR'S ORGANIZ ATION 07/20/2024 [facility] DATE CREATED AUTHOR AUTHOR'S ORGANIZ ATION 08/26/2024 [facility] DATE CREATED AUTHOR AUTHOR'S ORGANIZ ATION 07/14/2025 [facility] Care Teams (unrecognized sec tion and content) Team Status: Active Member Role Status Dates Dony Moore DO Primary Care Provider Active Team Status: Inactive Member Role Status Dates Dony Moore DO Primary Care Provide r, Attending Provider Active Start: December 12, 2023 End: December 12, 2023 Team Status: Active Member Role/Relationship Status Dates Dony Moore , Primary Care Provider Active Team Status: Inactive Member Role/Relationship Status Dates Dony Moore , Primary Care Provider Active Start: July 06, 2025 End: July 06abhifrancois Moore DOAttmelida ProviderActiveStart: July 06, 2025 End: July 06, 2025 Team Status: Active Member Role/Relationship Status Dates Dony Moore , Primary Care Provider Active Start: July 07, 2025 Eziotobi Juliana Calvillo ProviderActiveStart: July 07, 2025 Team Status: Inactive Member Role/Relationship Status Dates Maggie Johnson ([facility]) MD Attending Provider Active Start: July 07, 2025 End: July 07, 2025 Team Status: Active Member Role/Relationship Status Dates Dony Moore , Primary Care Provider Active Start: July 07, 2025 Terri Buckner ProviderActiveStart: July 07, 2025 Leeanne Buckner ProviderActiveStart: July 07, 2025 Juliana Donahue ProviderActiveStart: July 07, 2025 Leeanne Donahue ProviderActiveStart: July 07, 2025 Goals (unrecognized section and content) Goals [...] BE BASED ON THE PRIMARY CLINICAL RECORDS. [employer] provides no warranty or guarantee of the accuracy or completeness of information in this document.
--- OUTSIDE RECORDS SUMMARY | 2025-08-06 04:29 | XMS_ITS | Clinical Summary ---
Author Organization [facility] Address [address] [place] [address] Phone Care Team Providers Care Guest Relations Representative Name Role Phone Unavailable Primary Care Provider Unavailabl e Encounters DateTypeDepartmentCare KhhhGkeiwariuhz72/18/2025Orders Only [facility] [address] [place] [address] Scanning, Generic Provider 07/07/2025Scanned Document [facility] [address] [place] [address] Scanning, Generic Provider 07/07/2025Orders Only [facility] [address] [place] [address] Vinnie Jimenez MD from Last 3 Months Social History Tobacco UseTypesPacks/DayYears UsedDateSmoking Tobacco: Never AssessedSex and Gender InformationValueDate RecordedSex Assigned at BirthNot on fileLegal Sex Male07/11/2025 8:54 AM ESTGender IdentityNot on fileSexual OrientationNot on file Plan of Treatment DateTypeDepartmentCare Team (Latest Contact Info)Khydfyfkrfu58/15/2025 3:00 PM ESTOffice Visit [address] [address] Susy Parks MD [address] [facility] [address] [place] [address] 10/26/2025 10:40 AM ESTOffice Visit [address] [place] [address] Susy Parks MD [address] [facility] [address] [place] [address] Health MaintenanceDue DateLast DoneCommentsLipid Panel1941Medicare Annual Wellness Visit (AWV)1Diabetes Oermsfjhk49/24/1959DTaP/Tdap/Td Vaccines (1 - Tdap)1963Pneumococcal Vaccine (1 of 1 - PCV)1991Zoster Vaccines (1 of 2)1991RSV High Risk: (Elderly (60+) or Population) (1 - 1- dose 75+ series)2016Influenza Vaccine (#1)5COVID-19 Vaccine (1 - 2024- season)2025HIB VaccinesAged OutNo longer eligible based on patient's age to complete this topicHPV VaccinesAged OutNo longer eligible based on patient's age to complete this topicHepatitis A VaccinesAged OutNo longer eligible based on patient's age to complete this topicHepatitis B VaccinesAged OutNo longer eligible based on patient's age to complete this topicIPV Vaccines Aged OutNo longer eligible based on patient's age to complete this topic Meningococcal VaccineAged OutNo longer eligible based on patient's age to complete this topicRotavirus VaccinesAged OutNo longer eligible based on patient's age to complete this topic Procedures Procedure NamePriorityDate/TimeAssociated DiagnosisCommentsNUCLEAR STRESS TEST - ONBASE SCAN07/19/2025 NON-UH HIE SALMONELLA/SHIGELLA ZGAJZGSyufwpt63/06/2025 5:27 PM EST CJYRMBNLTBVZDQ75/06/2025 from Last 3 Months Results * Nuclear Stress Test - Onbase Scan (07/19/2025) Narrative 07/19/2025 Ordered by an unspecified provider. Authorizing ProviderResult TypeResult StatusGeneric Provider ScanningCV STRESS PROCEDURESFinal Result * NON-[facility] HIE SALMONELLA/SHIGELLA SCREEN (07/07/2025 5:27 PM EST)Specimen (Source)Anatomical Location / LateralityCollection Method / VolumeCollection TimeReceived TimeINTEGRIS [facility] [place] Stool vidbnvrz37/06/2025 5:27 PM EST Narrative [facility] - 07/13/2025 2:43 PM EST Final report ??Comment ?? No Salmonella or Shigella recovered. ??Final report ??Comment ?? No Campylobacter species isolated. ??Negative ?? Performed at: ??[facility] ?? [address], [place] ??[id number] ?? Apparel Merchandiser: Graham Salomon PhD, Phone: ??[phone] PERFORMED BY: [address] [place] [id number] PATHOLOGIST SERVICE AIDE VALERIE CAPMBELL M.D. Authorizing ProviderResult TypeResult StatusVinnie SALDANA BLOOD ORDERABLES Final ResultPerforming OrganizationAddressCity/State/ZIP CodePhone Number [facility] [address] [place] [address], * Echocardiogram (07/07/2025) Narrative 07/07/2025 Ordered by an unspecified provider. Authorizing ProviderResult TypeResult StatusGeneric Provider ScanningCV ECHO PROCEDURESFinal Result from Last 3 Months Insurance
--- OUTSIDE RECORDS SUMMARY | 2025-08-06 04:29 | XMS_ITS | Clinical Summary ---
Author Organization [facility] Address [id number] [address] [place] [address] Care Team Providers Care Casino Floor Walker Name Role Phone Dony Rao Primary Care Provider [phone] Allergies No known active allergies Medications MedicationSigDispense [...] Take 1 tablet by mouth daily.Active om 2-apt-prq-D24-KE-L4-fsaoplt 500 mg-500 mcg -1 mg-12.5 mg capsule daily.Active Active Problems ProblemNoted DateDiagnosed DateAcquired fbnrqiiemq93/01/2020Acquired hemophilia A002/23/2020Factor VIII inhibitor fdhplgfy26/24/2020GI bleed02/09/2020 Immunizations No known immunizations Family History Medical HistoryRelationNameCommentsParkinsonismBrotherALSMotherRelationName StatusCommentsBrotherMother Social History Tobacco UseTypesPacks/DayYears UsedDateSmoking Tobacco: Every DayCigarettes Smokeless Tobacco: Never Comments:Down to 2-3 cigarre ttes/day Alcohol UseStandard Drinks/DrdlUeztypzvJql26 (1 standard drink = 0.6 oz pure alcohol)PHQ-2AnswerDate RecordedTotal Zakwi878ChildcareAnswerDate WqjoleegWljeztuotVjkbkab92/19/2019EmploymentAnswerDate RecordedEmploymentUnknown 04/19/2019Purpose - LifeAnswerDate RecordedPurpose and direction in lifeUnknown 09/26/2020ex and Gender InformationValueDate RecordedSex Assigned at BirthNot on fileLegal RvrSnim2304/19/2019 9:17 AM EDTGender IdentityNot on fileSexual OrientationNot on fileOccupationIndustryJob Start DateJob End DateRetired railroadNot on fileNot on fileNot on file Last Filed Vital Signs Vital SignReadingTime TakenCommentsBlood Rurtaipz436/9704 2:13 PM EDT Nzpjv823112/04/2020 2:13 PM DHMJdepbsharam40.4 ??C (97.6 ??F)12/04/2020 2:13 PM EDTRespiratory Lnda5010 2:13 PM EDTOxygen Dkovarvglr90%02/24/2020 11:07 AM EDTInhaled Oxygen Concentration--Dpftqm45.8 kg (165 lb)12/04/2020 2:13 PM EDT Cyrxdu324.7 cm (5' 8 )03/15/2020 3:12 PM EDTBody Mass Index25.0903/15/2020 3:12 PM EDT Plan of Treatment Health MaintenanceDue DateLast DoneCommentsDepression Isivhoxbw65/24/1953Tobacco Vkqljvhma84/24/1953DTaP,Tdap and Td Vaccines (1 - Tdap)1960Zoster (Shingles) Vaccine (1 of 2)1991Fall Risk Syxpwyfpw60/24/2006RSV ( or age 60+ yrs) (1 - 1-dose 75+ series)2016Influenza Npgekqu2905/02/2025 Goals GoalPatient Goal TypeAssociated ProblemsRecent ProgressPatient-Stated?Author Long-Term Goals Sandrita Castro LSW Note: Evaluation of progress towards goal: return home with family support Medical Devices ImplantedTypeAreaManufacturerDevice IdentifierShelf Expiration DateModel / Serial / LotFilter Ivc Celect Plat Fem Rpl [id number] + [id number] - [id number] - [id number] Implanted:Qty: 1 on 02/12/2020 by Vladimir Michaels MD at [facility] IVC FilterCOOK [id number] / [id number] / [id number] Insurance Advance Directives * Full Code (Latest Code Status on File) Date ActivatedDate InactivatedComments02/09/2020 5:22 AM02/24/2020 6:29 PM Care Teams Team MemberRelationshipSpecialtyStart DateEnd Date Dony Rao DO [address] [facility] [place] [address] PCP - GeneralInternal Medicine02/09/20
--- OUTSIDE RECORDS SUMMARY | 2025-08-06 04:29 | XMS_ITS | Clinical Summary ---
Author Organization [facility] Address [address] [place] [address] Care Team Providers Care Diving Instructor Name Role Phone Unavailable Primary Care Provider Unavailabl e Source Comments The following information is NOT included in Care Everywhere downloads:Psychiatric notes, ECG results, Cardiac Rehab notes, Pulmonary Function notes, data from SmartForms (includes but not limited toPregnancy data,audiograms, eye exams, pre-surgical evaluation notes, well-child exam data).[facility] Allergies No known active allergies Medications MedicationSigDispense [...] DateDiagnosed DateAcute hyperactive delirium due to multiple kuucpdgldq84/24/2024 Assessment & Plan (05/26/2024 1:08 PM EDT): [...] use, encourage family visitation Palliative care by wgeflutret71/24/2024 Assessment & Plan (05/26/2024 1:08 PM EDT): [...] chart) -did not address code status Traumatic btrmgezcccke27/24/2024 Assessment & Plan (05/26/2024 1:08 PM EDT): [...] procedure options for non-cancer acute pain Drug-induced hzfjjcoruzwb10/24/2024 Assessment & Plan (05/26/2024 1:08 PM EDT): [...] of multiple ribs with flail chest, initial xvkyzkisq47/16/2024 Assessment & Plan (05/26/2024 1:08 PM EDT): [...] were you homeless or living in a halfway (including now)?No05/20/2024Sex and Gender InformationValueDate RecordedSex Assigned at BirthNot on fileLegal RehBjmh1405/16/2024 11:42 PM EDTGender IdentityNot on fileSexual OrientationNot on file Last Filed Vital Signs Vital SignReadingTime TakenCommentsBlood Mwtfzmrg77/6810 3:00 PM EDT Ovclk3321 3:00 PM ZNQIezctkafyvx44 ??C (98.6 ??F)06/10/2024 11:30 AM EDT Respiratory Hwow345306/10/2024 3:00 PM EDTOxygen Xxlxcnknpa48%06/10/2024 3:00 PM EDTInhaled Oxygen Concentration--Iizlar44.6 kg (160 lb)05/17/2024 2:00 AM EDT Dfttvu081.7 cm (5' 8 )05/17/2024 2:00 AM EDTBody Mass Index24.3309 2:00 AM EDT Plan of Treatment Health MaintenanceDue DateLast DoneCommentsTdap Ugbnxas3405/25/1959Hepatitis A (HAV) Vaccine (optional start 19+ years)1960Pneumococcal Vaccine(s) (50+ yrs) (1 of 2 - PCV)1960hingles (RZV) Vaccine (1 of 2)1991Hepatitis B (HBV) Vaccine (optional start 60+ years)2001Annual Wellness Visit (G0438)05/02/2007RSV vaccine (adult) (1 - 1-dose 75+ series)2016COVID-19 Vaccine ( - 2024- season)2025Influenza Vaccine (#1)2025 Medical Devices ImplantedTypeAreaManufacturerDevice IdentifierShelf Expiration DateModel / Serial / LotCap Orth Lck Hex Drv Ns Lf Ea1 [id number] - [id number] Implanted:Qty: 8 on 05/20/2024 by Girish Baca MD at [facility] ConnectorRight: [id number] / / Plt 23mm Brdg Lck Post Ea1 [id number] - [id number] Implanted:Qty: 1 on 05/20/2024 by Girish Baca MD at [facility] PlateRight: [id number] / / Inst Orth 23mm Lng Brdg Post Ea1 [id number] - [id number] Implanted:Qty: 3 on 05/20/2024 by Girish Baca MD at [facility] PlateRight: [id number] / / Wshr Orth Ns Lf Ea1 [id number] - [id number] Implanted:Qty: 8 on 05/20/2024 by Girish Baca MD at [facility] WasherRight: [id number] / / ExplantedTypeAreaManufacturerDevice IdentifierShelf Expiration DateModel / Serial / LotCbl Orth Gd Ns Lf Ea1 [id number] - [id number] Explanted:Qty: 10 on 05/20/2024 by Girish Baca MD at [facility]SCableRight: [id number] / / [place] [address] Advance Directives * Full Code (Latest Code [...]
--- OUTSIDE RECORDS SUMMARY | 2025-08-06 04:29 | XMS_ITS | Clinical Summary ---
Author Organization [facility] Address [address] [facility] [place] [address] Care Team Providers Care Vegetable Handler Name Role Phone Dony Rao DO Primary Care Provider [phone] Social History Tobacco UseTypesPacks/DayYears UsedDateSmoking Tobacco: Never AssessedSex and Gender InformationValueDate RecordedSex Assigned at BirthNot on fileLegal Sex Male11/13/2022 6:37 PM EDTGender IdentityNot on fileSexual OrientationNot on file Plan of Treatment Not on file Insurance * Guarantor: Andrea Michelle TypeRelation to PatientDate of BirthPhone Billing AddressPersonal/Wrynws[address]hs1940 [address] [place] [id number] [place] [address] Care Teams Team MemberRelationshipSpecialtyStart DateEnd Date Dony Rao DO PCP - GeneralInternal Medicine03/18/23
--- OUTSIDE RECORDS SUMMARY | 2025-08-06 04:29 | XMS_ITS | Clinical Summary ---
Author Organization [facility] Address [address] [place] [address] Care Team Providers Care Associate Financial Advisor Name Role Phone Unavailable Primary Care Provider [...]
[2025-08-06 05:11] LABS: Hematocrit 29.1 % (42.0-54.0); Hemoglobin 8.9 g/dL (14.0-18.0); Mean Corpuscular HGB Conc 30.6 g/dL (29.9-35.2); Mean Corpuscular Hemoglobin 35.3 pg (25.9-34.0); Mean Corpuscular Volume 115.5 fL (80.0-94.0); Platelet Count 222 10^3/uL (150-450); Red Blood Count 2.52 10^6/uL (4.70-6.10); White Blood Count 7.1 10^3/uL (4.0-11.0)
[2025-08-06 05:20] LABS: Anion Gap 6.3; Blood Urea Nitrogen 20.0 mg/dL (7.0-18.0); Calcium 8.9 mg/dL (8.5-10.1); Carbon Dioxide 37.0 mmol/L (21.0-32.0); Chloride 95 mmol/L (98-107); Estimated GFR (African America >60 (>=60 mL/min/1.73m^2); Estimated GFR (Non-African Ame >60 (>=60 mL/min/1.73m^2); Glucose 108 mg/dL (74-106); Potassium 4.3 mmol/L (3.5-5.1); Sodium 134 mmol/L (136-145)
[2025-08-06 05:29] LABS: Segmented Neut Absolute Manual 5.82 10^3/uL (1.4-6.5); Segmented Neutrophils % Manual 82.0 (43.0-75.0)
[2025-08-06 05:30] LABS: Basophils Abs Manual 0.07 10^3/uL (0.00-0.10); Basophils Percent Manual 1.0 % (0.2-2.0); Eosinophils Absolute Manual 0.28 10^3/uL (0.00-0.70); Eosinophils Percent Manual 4.0 % (0.9-7.0); Lymphocytes Absolute Manual 0.49 10^3/uL (1.20-3.80); Lymphocytes Percent Manual 7.0 % (20.5-60.0); Monocytes Absolute Manual 0.42 10^3/uL (0.30-0.80); Monocytes Percent Manual 6.0 % (1.7-12.0)
[2025-08-06 05:31] LABS: Hypochromasia 1+; Macrocytosis 1+
--- NOTE | 2025-08-06 05:34 | ED_ITS ---
HPI - Skin/Abscess/Foreign Bdy General Chief complaint: Skin/Abscess/Foreign Body Stated complaint: OTHER Time Seen by Provider: 08/06/25 03:56 Source: patient and other Source comment: EMS, half-way report Mode of arrival: ambulance Limitations: no limitations History of Present Illness HPI narrative: half-way patient. Recent placement of pacemaker. history of COPD. States he is at the correction to recover from recent hospitalization for dehydration. He is 02 dependent. Got up tonight to go to the bathroom and fell cutting his right hand on the oxygen concentrator next to the bed. Denies other injury. does feel short of breath. No chest pain. Denies striking his head. Related Data Home Medications ?Medication ?Instructions ?Recorded ?Confirmed lisinopril 40 mg tablet 40 mg PO DAILY 02/28/2301/23 metoprolol succinate 25 mg 25 mg PO DAILY 02/28/2301/23 tablet,extended release 24 hr Allergies Allergy/AdvReac Type Severity Reaction Status Date / Time No Known Drug Allergies Allergy Verified 08/06/25 03:53 Review of Systems ROS Status of ROS 10 or more systems reviewed and unremark able except as noted in history and below [facility] Medical History (Updated 08/06/25 @ 05:43 by Rodrigo Zhao MD) PVD (peripheral vascular disease) ?I73.9 - Peripheral vascular disease, unspecified (ICD-10) H/O deep venous thrombosis ?Z86.718 - Personal history of other venous thrombosis and embolism (ICD-10) History of mechanical ventilation ?Z92.89 - Personal history of other medical treatment (ICD-10) 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) Hyponatremia ?E87.1 - Hypo-osmolality and hyponatremia (ICD-10) Hypertension ?I10 - Essential (primary) hypertension (ICD-10) COPD (chronic obstructive pulmonary disease) ?J44.9 - Chronic obstructive pulmonary disease, unspecified (ICD-10) 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) COPD exacerbation ?J44.1 - Chronic obstructive pulmonary disease with (acute) exacerbation (ICD-10) Surgical History S/P IVC filter ?Z95.828 - Presence of other vascular implants and grafts (ICD-10) Family History (Updated 07/06/25 @ 22:02 by Ange Ervin, JOSÉ MANUEL) Other Family history of COPD (chronic obstructive pulmonary disease) Family history of cancer Family history of hypertension Family history of stroke Social History (Updated 07/06/25 @ 22:03 by Ange Ervin, RN) Within the past year, how often did you have a drink containing alcohol: never Score interpretation: A score less than 4 is consistent with normal alcohol consumption. Smoking status: Current every day smoker Non-prescribed substance use: denies use Highest level of school completed/degree received: high school graduate Are you now , , , , never or living with a partner: Little interest or pleasure in doing things: not at all Feeling down, depressed, or hopeless: not at all Do you think of yourself as: straight/heterosexual Gender Identity: male Exam Constitutional Vital Signs, click to edit/add: Last Vital Signs Temp 97.7 F 08/06/25 03:53 Pulse 83 08/06/25 03:53 Resp 16 08/06/25 03:53 BP 127/69 08/06/25 03:53 Pulse Ox 91 L 08/06/25 03:53 O2 Del Method Nasal Cannula 08/06/25 03:53 O2 Flow Rate 4 08/06/25 03:53 Common normals: alert General appearance: in distress (respiratory distress) [facility] Common normals: normocephalic and head/scalp atraumatic Eye Common normals: EOMs intact bilaterally and conjunctivae normal Neck & C-Spine Common normals: full ROM Respiratory Other: diminished BS Cardio Common normals: S1 normal heart sound and S2 normal heart sound Rhythm: abnormal rhythm GI Common normals: Normal to inspection, nondistended, normoactive bowel sounds present and soft to palpation Extremity Common normals: full ROM Other: dorsum of right hand degloved from wrist to MCP joint exposing underlying tendons and vascular supply. Skin is very thin paper like Neuro Common normals: oriented x3, CN's II-XII intact bilaterally and moves all extremities Psych Appearance: grossly normal Course Vital Signs Vital signs: Vital Signs Temperature 97.7 F 08/06/25 03:53 Pulse Rate 83 08/06/25 03:53 Respiratory Rate 16 08/06/25 03:53 Blood Pressure 127/69 08/06/25 03:53 Pulse Oximetry 91 L 08/06/25 03:53 Oxygen Delivery Method Nasal Cannula 08/06/25 03:53 Oxygen Delivery Flow Rate 4 08/06/25 03:53 Temperature 97.7 F 08/06/25 03:53 Pulse Rate 83 08/06/25 03:53 Respiratory Rate 16 08/06/25 03:53 Blood Pressure 127/69 08/06/25 03:53 Pulse Oximetry 91 L 08/06/25 03:53 Oxygen Delivery Method Nasal Cannula 08/06/25 03:53 Oxygen Delivery Flow Rate 4 08/06/25 03:53 MDM - Skin/Abscess/Foreign Bdy MDM Narrative Medical decision making narrative: presents after fall and resultant complicated laceration of the dorsum of his hand. He has COPD and is 02 dependent. WBC is normal and he is anemic with Hgb 8.9. cxray with possible pneumonia LLL blood culture ordered along with Rocephin and zithromax Discussed with ortho hand at [facility] and would like the patient transferred ER-ER. Lab Data Labs: Lab Results 08/06/25 Range/Units 05:00 WBC 7.1 (4.0-11.0) 10^3/uL RBC 2.52 L (4.70-6.10) 10^6/uL Hgb 8.9 L (14.0-18.0) g/dL Hct 29.1 L (42.0-54.0) % MCV 115.5 H (80.0-94.0) fL MCH 35.3 H (25.9-34.0) pg MCHC 30.6 (29.9-35.2) g/dL RDW 15.7 H (11.0-15.0) % Plt Count 222 (150-450) 10^3/uL MPV 8.9 L (9.5-13.5) fL Seg Neuts % (Manual) 82.0 H (43.0-75.0) Lymphocytes % (Manual) 7.0 L (20.5-60.0) % Monocytes % (Manual) 6.0 (1.7-12.0) % Eosinophils % (Manual) 4.0 (0.9-7.0) % Basophils % (Manual) 1.0 (0.2-2.0) % Neutrophils # (Manual) 5.82 (1.4-6.5) 10^3/uL Lymphocytes # (Manual) 0.49 L (1.20-3.80) 10^3/uL Monocytes # (Manual) 0.42 (0.30-0.80) 10^3/uL Eosinophils # (Manual) 0.28 (0.00-0.70) 10^3/uL Basophils # (Manual) 0.07 (0.00-0.10) 10^3/uL Hypochromasia 1+ Macrocytosis 1+ Sodium 134 L (136-145) mmol/L Potassium 4.3 (3.5-5.1) mmol/L Chloride 95 L (98-107) mmol/L Carbon Dioxide 37.0 H (21.0-32.0) mmol/L Anion Gap 6.3 BUN 20.0 H (7.0-18.0) mg/dL Creatinine 0.94 (0.70-1.30) mg/dL Est GFR ( Amer) >60 (>=60 mL/min/1.73m^2) Est GFR (Non-Af Amer) >60 (>=60 mL/min/1.73m^2) BUN/Creatinine Ratio 21.3 Glucose 108 H (74-106) mg/dL Calcium 8.9 (8.5-10.1) mg/dL Discharge Plan Discharge Chief Complaint: Skin/Abscess/Foreign Body Clinical Impression: Laceration of hand, right, Pneumonia involving left lung, Anemia Patient Disposition: [facility]
[2025-08-06] MEDS: AZITHROMYCIN 500 MG in 0.9 % SODIUM CHLORIDE 250 ML 250 MG IV (05:48)
--- NOTE | 2025-08-06 06:10 | PC.NURSE ---
Patient arrived by EMS after having a fall at the [facility]. He had tripped over his O2 concentrator and hit his right hand on the concentrator. He did not hit his head or have any other injuries due to the fall. The right hand was wrapped in gauze when patient arrived, so dressing was removed. The skin of the right hand was sheared away from the knuckles down to the wrist. Active bleeding was present but minimal. He was very tolerant of dressing change. [facility] was called for hand surgeon specialty, they accepted patient ER to ER. Wet to dry dressing was applied to right hand. IV was started and labs were drawn. CXR done also. Patient's son Chente was called to provide update and let him know where his father would be going. Blood cultures obtained x2 sets, IV antibiotics started for pneumonia. Antibiotics were still infusing at the time patient left for transfer. Update was called to nursing staff at the [facility], and nursing report was called to [facility].
[2025-08-06 06:22] VITALS: O2SAT 94
== END 2025-08-06 06:25 | disposition short-term general hospital (02) ==
PROVIDERS: Emergency Provider Internal Medicine; PCP Internal Medicine
DX: S61.411A Laceration without foreign body of right hand, initial encounter (principal); J18.9 Pneumonia, unspecified organism; D64.9 Anemia, unspecified; Z95.0 Presence of cardiac pacemaker; Z99.81 Dependence on supplemental oxygen; F17.200 Nicotine dependence, unspecified, uncomplicated; W18.39XA Other fall on same level, initial encounter; Y92.128 Other place in nursing home as the place of occurrence of the external cause; J44.0 Chronic obstructive pulmonary disease with (acute) lower respiratory infection
CPT/HCPCS: 36415; 71045; 80048; 85007; 85027; 87040; 96365; 96368; 99285; J0456; J0696